=== PATIENT | female | born 1960 | race Caucasian/White ===

== ENCOUNTER 2019-03-26 07:08 | Outpatient (CLI) | payer OTHER, SELFPAY ==
[2019-03-26 09:16] LABS: Calculated LDL 77 mg/dL; Cholesterol 155 mg/dL (50-200); HDL Cholesterol 40 mg/dL (40-60); Triglyceride 192 mg/dL (30-150)
== END 2019-03-26 07:28 ==
PROVIDERS: PCP Family Medicine; Visit Provider Family Medicine
DX: E78.5 Hyperlipidemia, unspecified (principal)
CPT/HCPCS: 36415; 80061; 83721

== ENCOUNTER 2019-07-26 14:06 | Outpatient (CLI) | payer OTHER, SELFPAY ==
--- NOTE | 2019-07-26 12:03 | DI.RAD_ITS ---
EXAM: XR FOREARM RT INDICATION: rt wrist pain, hand pain, elbow pain, forearm pain, neurpathic finger pain, s/p trauma M25.531, M79.641, M79.2, M25.521, M79.631, S49.90XA COMPARISON: No exams were available for comparison TECHNIQUE: 2D digital imaging was performed. FINDINGS: No acute fracture or dislocation is present. The soft tissues are unremarkable. IMPRESSION: No acute abnormality.
--- NOTE | 2019-07-26 12:04 | DI.RAD_ITS ---
EXAM: XR ELBOW RT COMPLETE INDICATION: r/o fracture--s/p trauma 07/23; cannot lift w/ RUE. COMPARISON: No exams were available for comparison TECHNIQUE: 2D digital imaging was performed. FINDINGS: No acute fracture or dislocation is present. The soft tissues are unremarkable. IMPRESSION: No acute abnormality.
--- NOTE | 2019-07-26 12:06 | DI.RAD_ITS ---
EXAM: XR WRIST RT COMPLETE INDICATION: ulnar side painful with palpation, r/o fracture. COMPARISON: No exams were available for comparison TECHNIQUE: 2D digital imaging was performed. FINDINGS: There is no acute fracture or dislocation. The soft tissues are unremarkable. IMPRESSION: No acute abnormality.
--- NOTE | 2019-07-26 12:08 | DI.RAD_ITS ---
EXAM: XR HAND RT COMPLETE INDICATION: numb,suspect neuropathic pain 4th 5th, r/o fracture COMPARISON: RIGHT LITTLE FINGER POST REDUC from 04/18/2017 TECHNIQUE: 2D digital imaging was performed. FINDINGS: No acute fracture or dislocation is identified. The soft tissues are unremarkable. There are mild d egenerative changes seen in the hand. IMPRESSION: No acute fracture or dislocation.
== END 2019-07-26 14:26 ==
PROVIDERS: PCP Family Medicine; Visit Provider Nurse Practitioner Adult Health
DX: M25.531 Pain in right wrist (principal); M25.521 Pain in right elbow; M79.631 Pain in right forearm; M79.641 Pain in right hand; M79.644 Pain in right finger(s); M79.2 Neuralgia and neuritis, unspecified; M19.041 Primary osteoarthritis, right hand
CPT/HCPCS: 73080; 73090; 73110; 73130

== ENCOUNTER 2019-09-10 13:40 | Outpatient (CLI) | payer OTHER, SELFPAY ==
[2019-09-10 14:09] LABS: Abs Immature Grans 0.01 k/cumm (0.0-0.09); Absolute Basophil Count 0.02 k/cumm (0.0-0.2); Absolute Eosinophil Count 0.25 k/cumm (0.0-0.7); Absolute Lymphocyte Count 2.73 k/cumm (1.2-3.4); Absolute Monocyte Count 0.92 k/cumm (0.11-0.7); Absolute Neutrophil Count 3.16 k/cumm (1.2-6.7); Basophils % 0.3; Eosinophils % 3.5; HCT 41.5 % (36.0-46.0); HGB 13.3 g/dL (12.0-15.5); Immature Grans % 0.1; Lymphocytes % 38.5; Mean Corpuscular Hemoglobin 30.2 pg (27.0-33.0); Mean Corpuscular Volume 94.3 fL (80-95); Mean Platelet Volume 10.2 fL (8.0-11.0); Neutrophils % 44.6; Platelet Count 259 x1000/uL (130-400); RBC Distribution Width 13.5 % (11.7-14.6); White Blood Cell Count 7.09 k/cumm (4.4-10.8)
[2019-09-10 14:45] LABS: ESR 21 mm/hr (0-30)
[2019-09-10 15:29] LABS: Albumin 3.2 g/dL (3.4-5.0); Bilirubin, Direct 0.07 mg/dL (0.00-0.20); Bilirubin, Total 0.3 mg/dL (0.2-1.0); C-Reactive Protein 1.38 mg/dL (0.0-0.3); Estimated GFR 56.95 (mL/min/1.73m2); Total Protein 7.7 g/dL (6.4-8.2)
[2019-09-10 16:20] LABS: ALT 16 U/L (14-59); AST 19 U/L (15-37); Alkaline Phosphatase 104 U/L (46-116)
== END 2019-09-10 14:00 ==
PROVIDERS: PCP Family Medicine; Visit Provider Internal Medicine
DX: M19.90 Unspecified osteoarthritis, unspecified site (principal); M25.60 Stiffness of unspecified joint, not elsewhere classified; M45.9 Ankylosing spondylitis of unspecified sites in spine; Z79.899 Other long term (current) drug therapy
CPT/HCPCS: 36415; 80076; 85652; 82565; 85025; 86140

== ENCOUNTER 2019-11-16 09:16 | Outpatient (REF) | payer OTHER, SELFPAY ==
[2019-11-17 23:11] LABS: Calprotectin 320 mcg/g
== END 2019-11-16 09:36 ==
LOC: LBN 09:16
PROVIDERS: PCP Family Medicine; Visit Provider Nurse Practitioner Adult Health
DX: K51.00 Ulcerative (chronic) pancolitis without complications (principal)
CPT/HCPCS: 83993

== ENCOUNTER 2020-04-03 10:27 | Outpatient (REF) | payer OTHER, SELFPAY ==
[2020-04-05 20:39] LABS: Calprotectin 719 mcg/g
== END 2020-04-03 10:47 ==
LOC: LBN 10:27
PROVIDERS: PCP Family Medicine; Visit Provider Nurse Practitioner Adult Health
DX: K51.00 Ulcerative (chronic) pancolitis without complications (principal)
CPT/HCPCS: 83993

== ENCOUNTER 2020-04-04 03:21 | Outpatient (CLI) | payer OTHER, SELFPAY ==
[2020-04-04 10:56] LABS: Abs Immature Grans 0.01 k/cumm (0.0-0.09); Absolute Basophil Count 0.03 k/cumm (0.0-0.2); Absolute Eosinophil Count 0.26 k/cumm (0.0-0.7); Absolute Lymphocyte Count 2.59 k/cumm (1.2-3.4); Absolute Monocyte Count 0.75 k/cumm (0.11-0.7); Absolute Neutrophil Count 3.48 k/cumm (1.2-6.7); Basophils % 0.4; Eosinophils % 3.7; Immature Grans % 0.1 %; Lymphocytes % 36.4; Mean Corp. HGB Concentration 31.7 g/dL (32.0-36.0); Mean Corpuscular Volume 94.7 fL (80-95); Monocytes % 10.5; Neutrophils % 48.9; Platelet Count 265 x1000/uL (130-400); RBC 4.33 m/cumm (4.00-5.20); RBC Distribution Width 14.3 % (11.7-14.6); White Blood Cell Count 7.12 k/cumm (4.4-10.8)
[2020-04-04 11:26] LABS: Prothrombin Time 10.4 sec (9.3-11.0)
[2020-04-04 11:39] LABS: ALT 17 U/L (14-59); AST 13 U/L (15-37); Albumin 3.3 g/dL (3.4-5.0); Alkaline Phosphatase 95 U/L (46-116); Anion Gap 8.5 mmol/L (3-11); BUN 18 mg/dL (7-18); Bilirubin, Total 0.3 mg/dL (0.2-1.0); C-Reactive Protein 1.81 mg/dL (0.0-0.3); CO2 29.5 mmol/L (21.0-32.0); CREATININE 0.99 mg/dL (0.55-1.02); Calcium 9.6 mg/dL (8.5-10.1); Chloride 106 mmol/L (98-107); Estimated GFR 57.61 (mL/min/1.73m2); Glucose 168 mg/dL (74-106); Sodium 144 mmol/L (136-145); Total Protein 7.8 g/dL (6.4-8.2)
[2020-04-04 13:57] LABS: ESR 24 mm/hr (0-30)
[2020-04-05 21:45] LABS: Adalimumab QN with Reflex Ab 12.7 mcg/mL
== END 2020-04-04 03:41 ==
PROVIDERS: Family Provider Internal Medicine; PCP Family Medicine; Visit Provider Internal Medicine Gastroenterology
DX: K51.00 Ulcerative (chronic) pancolitis without complications (principal); K75.81 Nonalcoholic steatohepatitis (NASH); M19.90 Unspecified osteoarthritis, unspecified site; M25.60 Stiffness of unspecified joint, not elsewhere classified; M45.9 Ankylosing spondylitis of unspecified sites in spine; Z79.899 Other long term (current) drug therapy
CPT/HCPCS: 36415; 80053; 80076; 83520; 85652; 85025; 85610; 86140

== ENCOUNTER 2020-04-24 01:54 | Outpatient (CLI) | payer OTHER, SELFPAY ==
--- NOTE | 2020-04-24 08:31 | DI.MAMMO_ITS ---
EXAM: MG MAMMO SCREENING CLINICAL HISTORY: screening,Z12.39 TECHNIQUE: Bilateral full field digital CC and MLO mammographic images were obtained with 3D tomosyn thesis and utilizing computer aided detection (CAD). COMPARISON: Available for comparison. FINDINGS: Masses/Architectural Distortion: None seen. Microcalcifications: No suspicious pleomorphic-type are seen. Skin Thickening/Nipple Retraction: None. IMPRESSION: 1. No significant interval change with no specific features of malignancy noted. 2. Unless there is more urgent need, screening mammography is recommended, as per [employer] guidelines. BI-RADS Category 1 - Negative Breast Density - Category B - Scattered areas of fibroglandular density A negative radiographic report should not delay biopsy if a dominant or clinically suspicious mass is present. Up to ten percent of cancers are not identified on mammography. A negative report may reinforce clinical impression. Adenosis and dense breasts may obscure an underlying neoplasm. False positive reports average 6 to 10%. Patient will receive a letter notifying them of these results.
== END 2020-04-24 02:14 ==
PROVIDERS: PCP Family Medicine; Visit Provider Family Medicine
DX: Z12.31 Encounter for screening mammogram for malignant neoplasm of breast (principal); R92.2 Inconclusive mammogram
CPT/HCPCS: 77063; 77067

== ENCOUNTER 2020-05-03 02:50 | Outpatient (CLI) | payer OTHER, SELFPAY ==
[2020-05-03 08:43] LABS: Abs Immature Grans 0.02 10^3/uL (0.0-0.06); Absolute Basophil Count 0.04 10^3/uL (0.0-0.2); Absolute Eosinophil Count 0.28 10^3/uL (0.0-0.7); Absolute Lymphocyte Count 2.34 10^3/uL (1.2-3.4); Absolute Monocyte Count 0.66 10^3/uL (0.1-0.8); Absolute Neutrophil Count 2.98 10^3/uL (1.2-6.7); Basophils % 0.6; Eosinophils % 4.4; HCT 42.2 % (36.0-46.0); HGB 13.4 g/dL (11.2-15.7); Immature Grans % 0.3; MCH 30.3 pg (27.0-33.0); MCHC 31.8 % (32.0-36.0); MCV 95.5 fL (80-95); MPV 10.2 fL (8.0-11.0); Monocytes % 10.4; Neutrophils % 47.3; Nucleated RBC 0 %; Platelet Count 237 10^3/uL (130-400); RBC 4.42 10^6/uL (3.93-5.22); RDW 13.5 % (11.7-14.6); RDW-SD 47.4 fL; WBC 6.32 10^3/uL (4.4-10.8)
[2020-05-03 09:16] LABS: Hemoglobin A1C 5.4 % (3.8-5.6)
[2020-05-03 09:24] LABS: COMMENT (LAB VIEW ONLY) 297.96 mg/dL; Microalb ug/mg Crea 7.3 ug/mg Cr
[2020-05-03 09:49] LABS: ALT 16 U/L (14-59); AST 15 U/L (15-37); Albumin 3.5 g/dL (3.4-5.0); Alkaline Phosphatase 98 U/L (46-116); Anion Gap 9.1 mmol/L (3-11); BUN 17 mg/dL (7-18); Bilirubin, Total 0.3 mg/dL (0.2-1.0); CO2 26.9 mmol/L (21.0-32.0); CREATININE 0.99 mg/dL (0.55-1.02); Calcium 9.6 mg/dL (8.5-10.1); Calculated LDL 80 mg/dL (<100); Chloride 106 mmol/L (98-107); Cholesterol 176 mg/dL (<200); Estimated GFR 57.41 (mL/min/1.73m2); Glucose 147 mg/dL (74-106); HDL Cholesterol 44 mg/dL (40-60); Potassium 3.8 mmol/L (3.5-5.1); Sodium 142 mmol/L (136-145); TSH 1.18 uIU/mL (0.36-3.74); Triglyceride 261 mg/dL (<150)
[2020-05-04 04:46] LABS: Vitamin D 25 Total 22.6 ng/ml (30-100)
[2020-05-04 10:33] LABS: Parathyroid Hormone,Intact 56 pg/mL (19-88)
== END 2020-05-03 03:10 ==
PROVIDERS: PCP Family Medicine; Visit Provider Internal Medicine Endocrinology, Diabetes & Metabolism
DX: K51.00 Ulcerative (chronic) pancolitis without complications (principal); M85.80 Other specified disorders of bone density and structure, unspecified site; E11.9 Type 2 diabetes mellitus without complications; E78.2 Mixed hyperlipidemia; M45.0 Ankylosing spondylitis of multiple sites in spine
CPT/HCPCS: 36415; 80053; 80061; 82306; 82043; 82570; 83036; 83970; 84443; 85025; 86140

== ENCOUNTER 2021-02-02 03:11 | Outpatient (CLI) | payer OTHER, SELFPAY ==
[2021-02-02 15:12] LABS: Abs Immature Grans 0.07 10^3/uL (0.0-0.06); Absolute Basophil Count 0.02 10^3/uL (0.0-0.2); Absolute Lymphocyte Count 2.09 10^3/uL (1.2-3.4); Absolute Neutrophil Count 5.35 10^3/uL (1.2-6.7); Basophils % 0.3; HCT 40.5 % (36.0-46.0); HGB 13.1 g/dL (11.2-15.7); Immature Grans % 0.9; Lymphocytes % 26.7; MCHC 32.3 % (32.0-36.0); MCV 89.6 fL (80-95); MPV 9.7 fL (8.0-11.0); Monocytes % 3.8; Neutrophils % 68.3; Nucleated RBC 0 %; Platelet Count 336 10^3/uL (130-400); RBC 4.52 10^6/uL (3.93-5.22); RDW 13.6 % (11.7-14.6); RDW-SD 44.3 fL; WBC 7.83 10^3/uL (4.4-10.8)
[2021-02-02 15:45] LABS: ALT 22 U/L (14-59); AST 16 U/L (15-37); Albumin 3.2 g/dL (3.4-5.0); Alkaline Phosphatase 96 U/L (46-116); Anion Gap 8.5 mmol/L (3-11); BUN 29 mg/dL (7-18); Bilirubin, Direct 0.1 mg/dL (0.0-0.2); Bilirubin, Total 0.3 mg/dL (0.2-1.0); C-Reactive Protein 1.74 mg/dL (0.0-0.3); CO2 28.5 mmol/L (21.0-32.0); CREATININE 1.2 mg/dL (0.55-1.02); Calcium 9.6 mg/dL (8.5-10.1); Chloride 109 mmol/L (98-107); Estimated GFR 45.98 (mL/min/1.73m2); Glucose 175 mg/dL (74-106); Potassium 4.5 mmol/L (3.5-5.1); Sodium 146 mmol/L (136-145)
[2021-02-07 14:04] LABS: TB Interpretation Negative (Negative); TB1 Ag minus Nil 0.02 IU/ml; TB2 Ag minus Nil 0.09 IU/mL
== END 2021-02-02 03:12 | disposition home or self-care (01) ==
PROVIDERS: PCP Family Medicine; Visit Provider Internal Medicine Gastroenterology
DX: K51.00 Ulcerative (chronic) pancolitis without complications (principal)
CPT/HCPCS: 36415; 80048; 80076; 85025; 86140; 86480

== ENCOUNTER 2021-03-27 03:50 | Outpatient (CLI) | payer OTHER, SELFPAY ==
[2021-03-27 08:34] LABS: Anion Gap 9.6 mmol/L (3-11); BUN 22 mg/dL (7-18); CO2 26.4 mmol/L (21.0-32.0); CREATININE 1.2 mg/dL (0.55-1.02); Calcium 9.4 mg/dL (8.5-10.1); Chloride 108 mmol/L (98-107); Estimated GFR 45.98 (mL/min/1.73m2); Glucose 140 mg/dL (74-106); Potassium 3.8 mmol/L (3.5-5.1); Sodium 144 mmol/L (136-145)
== END 2021-03-27 03:51 | disposition home or self-care (01) ==
LOC: LBO 03:50
PROVIDERS: PCP Family Medicine; Visit Provider Family Medicine
DX: K76.0 Fatty (change of) liver, not elsewhere classified (principal)
CPT/HCPCS: 36415; 80048

== ENCOUNTER 2021-04-02 15:21 | Outpatient (REF) | payer OTHER, SELFPAY | END 2021-04-02 15:22 | disposition home or self-care (01) | LOC: LBN 15:21 | PROVIDERS: PCP Family Medicine; Visit Provider Family Medicine | DX: N39.0 Urinary tract infection, site not specified (principal) | CPT/HCPCS: 87077; 87086; 87186 ==

== ENCOUNTER 2021-04-04 03:02 | Outpatient (CLI) | payer OTHER, SELFPAY ==
[2021-04-04 14:25] LABS: Abs Immature Grans 0.03 10^3/uL (0.0-0.06); Absolute Basophil Count 0.05 10^3/uL (0.0-0.2); Absolute Lymphocyte Count 3.14 10^3/uL (1.2-3.4); Absolute Monocyte Count 0.97 10^3/uL (0.1-0.8); Absolute Neutrophil Count 5.16 10^3/uL (1.2-6.7); Basophils % 0.5; Eosinophils % 4.1; HGB 13.1 g/dL (11.2-15.7); Immature Grans % 0.3; Lymphocytes % 32.2; MCH 28.8 pg (27.0-33.0); MCV 90.1 fL (80-95); MPV 10.6 fL (8.0-11.0); Monocytes % 9.9; Nucleated RBC 0 %; Platelet Count 242 10^3/uL (130-400); RBC 4.55 10^6/uL (3.93-5.22); RDW 13.5 % (11.7-14.6); RDW-SD 44.2 fL; WBC 9.75 10^3/uL (4.4-10.8)
[2021-04-04 15:48] LABS: ALT 23 U/L (14-59); AST 19 U/L (15-37); Albumin 3.4 g/dL (3.4-5.0); Alkaline Phosphatase 106 U/L (46-116); Anion Gap 8.2 mmol/L (3-11); BUN 26 mg/dL (7-18); Bilirubin, Direct 0.1 mg/dL (0.0-0.2); Bilirubin, Total 0.3 mg/dL (0.2-1.0); C-Reactive Protein 1.52 mg/dL (0.0-0.3); CO2 25.8 mmol/L (21.0-32.0); CREATININE 1.1 mg/dL (0.55-1.02); Calcium 9.5 mg/dL (8.5-10.1); Chloride 107 mmol/L (98-107); Estimated GFR 50.84 (mL/min/1.73m2); Glucose 99 mg/dL (74-106); Sodium 141 mmol/L (136-145); Total Protein 7.7 g/dL (6.4-8.2)
[2021-04-05 09:53] LABS: HIV-1/2 Ag & Ab Screen Negative (Negative)
[2021-04-06 13:37] LABS: TB Interpretation Negative (Negative); TB1 Ag minus Nil 0.02 IU/ml; TB2 Ag minus Nil 0.06 IU/mL
== END 2021-04-04 03:03 | disposition home or self-care (01) ==
LOC: LBO 03:02
PROVIDERS: PCP Family Medicine; Visit Provider Internal Medicine Gastroenterology
DX: K51.00 Ulcerative (chronic) pancolitis without complications (principal); Z11.4 Encounter for screening for human immunodeficiency virus [HIV]
CPT/HCPCS: 36415; 80048; 80076; 87389; 85025; 86140; 86480

== ENCOUNTER 2021-04-18 03:34 | Outpatient (CLI) | payer OTHER, SELFPAY ==
[2021-04-18 14:13] LABS: Abs Immature Grans 0.02 10^3/uL (0.0-0.06); Absolute Basophil Count 0.05 10^3/uL (0.0-0.2); Absolute Eosinophil Count 0.45 10^3/uL (0.0-0.7); Absolute Lymphocyte Count 3.88 10^3/uL (1.2-3.4); Absolute Monocyte Count 0.97 10^3/uL (0.1-0.8); Basophils % 0.6; Eosinophils % 5.3; HCT 44.5 % (36.0-46.0); HGB 14.1 g/dL (11.2-15.7); Immature Grans % 0.2; Lymphocytes % 45.8; MCH 28.7 pg (27.0-33.0); MCHC 31.7 % (32.0-36.0); MCV 90.4 fL (80-95); MPV 9.9 fL (8.0-11.0); Monocytes % 11.5; Neutrophils % 36.6; Nucleated RBC 0 %; Platelet Count 242 10^3/uL (130-400); RBC 4.92 10^6/uL (3.93-5.22); RDW 13.4 % (11.7-14.6); RDW-SD 44.7 fL; WBC 8.47 10^3/uL (4.4-10.8)
[2021-04-18 15:39] LABS: ALT 24 U/L (14-59); AST 17 U/L (15-37); Albumin 3.4 g/dL (3.4-5.0); Alkaline Phosphatase 113 U/L (46-116); Bilirubin, Total 0.3 mg/dL (0.2-1.0); C-Reactive Protein 0.77 mg/dL (0.0-0.3); Total Protein 7.8 g/dL (6.4-8.2)
[2021-04-18 15:48] LABS: Bilirubin, Direct < 0.1 mg/dL (0.0-0.2)
== END 2021-04-18 03:35 | disposition home or self-care (01) ==
LOC: LBO 03:34
PROVIDERS: PCP Family Medicine; Visit Provider Internal Medicine Gastroenterology
DX: K51.00 Ulcerative (chronic) pancolitis without complications (principal)
CPT/HCPCS: 36415; 80076; 85025; 86140

== ENCOUNTER 2021-05-16 02:58 | Outpatient (CLI) | payer OTHER, SELFPAY ==
[2021-05-16 14:07] LABS: Basophils % 0.9; HCT 41.6 % (36.0-46.0); HGB 13.4 g/dL (11.2-15.7); Lymphocytes % 40.7; MCH 28.3 pg (27.0-33.0); MCHC 32.2 % (32.0-36.0); MCV 87.9 fL (80-95); Monocytes % 9.2; Neutrophils % 43.9; Platelet Count 237 10^3/uL (130-400); RBC 4.73 10^6/uL (3.93-5.22); RDW 13.3 % (11.7-14.6); RDW-SD 43.4 fL; WBC 7.93 10^3/uL (4.4-10.8)
[2021-05-16 14:08] LABS: Abs Immature Grans 0.02 10^3/uL (0.0-0.06); Absolute Basophil Count 0.07 10^3/uL (0.0-0.2); Absolute Lymphocyte Count 3.23 10^3/uL (1.2-3.4); Absolute Monocyte Count 0.73 10^3/uL (0.1-0.8); Absolute Neutrophil Count 3.48 10^3/uL (1.2-6.7); Immature Grans % 0.3; Nucleated RBC 0 %
[2021-05-16 15:40] LABS: ALT 30 U/L (14-59); AST 21 U/L (15-37); Albumin 3.4 g/dL (3.4-5.0); Alkaline Phosphatase 107 U/L (46-116); Bilirubin, Direct 0.1 mg/dL (0.0-0.2); Bilirubin, Total 0.3 mg/dL (0.2-1.0); C-Reactive Protein 1.61 mg/dL (0.0-0.3); Total Protein 7.8 g/dL (6.4-8.2)
[2021-05-24 14:51] LABS: Ustekinumab Ab <10 AU/mL (<10); Ustekinumab QN 4.2 mcg/mL
== END 2021-05-16 02:59 | disposition home or self-care (01) ==
LOC: LBO 02:58
PROVIDERS: PCP Family Medicine; Visit Provider Internal Medicine Gastroenterology
DX: K51.00 Ulcerative (chronic) pancolitis without complications (principal); Z51.81 Encounter for therapeutic drug level monitoring
CPT/HCPCS: 36415; 80076; 80299; 83520; 85025; 86140

== ENCOUNTER 2021-07-09 02:32 | Outpatient (CLI) | payer OTHER, SELFPAY ==
[2021-07-09 14:04] LABS: Abs Immature Grans 0.03 10^3/uL (0.0-0.06); Absolute Basophil Count 0.04 10^3/uL (0.0-0.2); Absolute Eosinophil Count 0.22 10^3/uL (0.0-0.7); Absolute Lymphocyte Count 2.75 10^3/uL (1.2-3.4); Absolute Monocyte Count 0.69 10^3/uL (0.1-0.8); Absolute Neutrophil Count 4.67 10^3/uL (1.2-6.7); Basophils % 0.5; Eosinophils % 2.6; HCT 39.8 % (36.0-46.0); HGB 12.3 g/dL (11.2-15.7); Immature Grans % 0.4; Lymphocytes % 32.7; MCH 27.6 pg (27.0-33.0); MCHC 30.9 % (32.0-36.0); MCV 89.4 fL (80-95); MPV 9.3 fL (8.0-11.0); Monocytes % 8.2; Neutrophils % 55.6; Nucleated RBC 0 %; Platelet Count 289 10^3/uL (130-400); RBC 4.45 10^6/uL (3.93-5.22); RDW 13.4 % (11.7-14.6)
[2021-07-09 16:35] LABS: ALT 19 U/L (14-59); AST 14 U/L (15-37); Albumin 3.5 g/dL (3.4-5.0); Alkaline Phosphatase 106 U/L (46-116); Bilirubin, Direct 0.1 mg/dL (0.0-0.2); Bilirubin, Total 0.3 mg/dL (0.2-1.0); Total Protein 8.2 g/dL (6.4-8.2)
== END 2021-07-09 02:33 | disposition home or self-care (01) ==
LOC: LBO 02:33
PROVIDERS: PCP Family Medicine; Visit Provider Internal Medicine Gastroenterology
DX: K51.00 Ulcerative (chronic) pancolitis without complications (principal)
CPT/HCPCS: 36415; 80076; 85025; 86140

== ENCOUNTER 2021-08-02 02:15 | Outpatient (CLI) | payer OTHER, SELFPAY ==
[2021-08-02 15:34] LABS: Abs Immature Grans 0.02 10^3/uL (0.0-0.06); Absolute Basophil Count 0.02 10^3/uL (0.0-0.2); Absolute Eosinophil Count 0.26 10^3/uL (0.0-0.7); Absolute Lymphocyte Count 2.15 10^3/uL (1.2-3.4); Absolute Monocyte Count 0.57 10^3/uL (0.1-0.8); Absolute Neutrophil Count 3.75 10^3/uL (1.2-6.7); Basophils % 0.3; Eosinophils % 3.8; HCT 38.5 % (36.0-46.0); HGB 12.1 g/dL (11.2-15.7); Immature Grans % 0.3; Lymphocytes % 31.8; MCH 28.2 pg (27.0-33.0); MCHC 31.4 % (32.0-36.0); MCV 89.7 fL (80-95); MPV 9.9 fL (8.0-11.0); Monocytes % 8.4; Neutrophils % 55.4; Nucleated RBC 0 %; Platelet Count 329 10^3/uL (130-400); RBC 4.29 10^6/uL (3.93-5.22); RDW-SD 45.5 fL; WBC 6.77 10^3/uL (4.4-10.8)
[2021-08-02 17:05] LABS: ALT 21 U/L (14-59); AST 20 U/L (15-37); Albumin 3.4 g/dL (3.4-5.0); Alkaline Phosphatase 112 U/L (46-116); Bilirubin, Direct 0.1 mg/dL (0.0-0.2); Bilirubin, Total 0.3 mg/dL (0.2-1.0); CREATININE 0.9 mg/dL (0.55-1.02); Total Protein 8.2 g/dL (6.4-8.2)
[2021-08-03 10:53] LABS: Hep B Core Antibody Negative (Negative)
[2021-08-03 17:03] LABS: G6PD Enzyme Activity 9.6 U/g Hb (8.0 - 11.9)
== END 2021-08-02 02:16 | disposition home or self-care (01) ==
LOC: LBO 02:15
PROVIDERS: PCP Family Medicine; Visit Provider Internal Medicine
DX: K51.90 Ulcerative colitis, unspecified, without complications (principal); Z79.899 Other long term (current) drug therapy; M19.90 Unspecified osteoarthritis, unspecified site; M25.60 Stiffness of unspecified joint, not elsewhere classified
CPT/HCPCS: 36415; 80076; 82657; 82955; 86704; 82565; 85025

== ENCOUNTER 2021-08-15 02:40 | Outpatient (CLI) | payer OTHER, SELFPAY ==
[2021-08-15 10:56] LABS: Abs Immature Grans 0.03 10^3/uL (0.0-0.06); Absolute Basophil Count 0.05 10^3/uL (0.0-0.2); Absolute Eosinophil Count 0.19 10^3/uL (0.0-0.7); Absolute Lymphocyte Count 2.56 10^3/uL (1.2-3.4); Absolute Monocyte Count 0.66 10^3/uL (0.1-0.8); Absolute Neutrophil Count 4.56 10^3/uL (1.2-6.7); Basophils % 0.6; Eosinophils % 2.4; Immature Grans % 0.4; Lymphocytes % 31.8; MCH 27.6 pg (27.0-33.0); MCHC 30.8 % (32.0-36.0); MCV 89.9 fL (80-95); MPV 9.5 fL (8.0-11.0); Monocytes % 8.2; Neutrophils % 56.6; Nucleated RBC 0 %; Platelet Count 325 10^3/uL (130-400); RBC 4.34 10^6/uL (3.93-5.22); RDW 14.5 % (11.7-14.6); RDW-SD 47.2 fL; WBC 8.05 10^3/uL (4.4-10.8)
[2021-08-15 13:33] LABS: ALT 27 U/L (14-59); AST 23 U/L (15-37); Albumin 3.4 g/dL (3.4-5.0); Alkaline Phosphatase 118 U/L (46-116); Bilirubin, Direct 0.1 mg/dL (0.0-0.2); Bilirubin, Total 0.3 mg/dL (0.2-1.0); C-Reactive Protein 5.19 mg/dL (0.0-0.3); Total Protein 8.2 g/dL (6.4-8.2)
== END 2021-08-15 02:41 | disposition home or self-care (01) ==
PROVIDERS: PCP Family Medicine; Visit Provider Internal Medicine Gastroenterology
DX: K51.00 Ulcerative (chronic) pancolitis without complications (principal)
CPT/HCPCS: 36415; 80076; 85025; 86140

== ENCOUNTER 2021-09-24 08:38 | Outpatient (CLI) | payer OTHER, SELFPAY ==
[2021-09-24 12:42] VITALS: BP 133/76; PULSE 72; RESP 20; TEMP 37.1; O2SAT 100
[2021-09-24 13:05] VITALS: BP 150/70; PULSE 73; RESP 18; TEMP 35.6; O2SAT 95
[2021-09-24 13:30] VITALS: BP 109/69; RESP 18; TEMP 37.7; O2SAT 98
[2021-09-24 13:45] VITALS: BP 118/71; PULSE 66; RESP 20; TEMP 38; O2SAT 100
[2021-09-24 14:40] VITALS: BP 117/74; PULSE 63; RESP 20; TEMP 37.7; O2SAT 20
== END 2021-09-24 08:39 | disposition home or self-care (01) ==
PROVIDERS: PCP Family Medicine; Visit Provider Family Medicine
DX: U07.1 COVID-19 (principal); R07.89 Other chest pain; R00.0 Tachycardia, unspecified; R05.9 Cough, unspecified; R53.81 Other malaise
CPT/HCPCS: 96365; Q0047

== ENCOUNTER 2021-10-17 03:19 | Outpatient (CLI) | payer OTHER, SELFPAY ==
[2021-10-17 15:27] LABS: Abs Immature Grans 0.02 10^3/uL (0.0-0.06); Absolute Basophil Count 0.02 10^3/uL (0.0-0.2); Absolute Eosinophil Count 0.13 10^3/uL (0.0-0.7); Absolute Lymphocyte Count 2.09 10^3/uL (1.2-3.4); Absolute Monocyte Count 0.58 10^3/uL (0.1-0.8); Absolute Neutrophil Count 5.92 10^3/uL (1.2-6.7); Basophils % 0.2; Eosinophils % 1.5; HGB 11.6 g/dL (11.2-15.7); Immature Grans % 0.2; Lymphocytes % 23.9; MCHC 30.5 % (32.0-36.0); MCV 91.8 fL (80-95); MPV 9.3 fL (8.0-11.0); Monocytes % 6.6; Neutrophils % 67.6; Nucleated RBC 0 %; Platelet Count 313 10^3/uL (130-400); RBC 4.14 10^6/uL (3.93-5.22); RDW 15.1 % (11.7-14.6); RDW-SD 50.7 fL; WBC 8.76 10^3/uL (4.4-10.8)
[2021-10-17 15:29] LABS: ESR 56 mm/hr (0-30)
[2021-10-17 16:07] LABS: ALT 21 U/L (14-59); AST 20 U/L (15-37); Albumin 3.4 g/dL (3.4-5.0); Alkaline Phosphatase 107 U/L (46-116); Bilirubin, Direct 0.1 mg/dL (0.0-0.2); Bilirubin, Total 0.3 mg/dL (0.2-1.0); C-Reactive Protein 3.47 mg/dL (0.0-0.3); CREATININE 1.1 mg/dL (0.55-1.02); Estimated GFR 50.67 (mL/min/1.73m2); Total Protein 8.7 g/dL (6.4-8.2)
== END 2021-10-17 03:20 | disposition home or self-care (01) ==
LOC: LBO 03:19
PROVIDERS: PCP Family Medicine; Visit Provider Internal Medicine
DX: K51.90 Ulcerative colitis, unspecified, without complications (principal); M19.90 Unspecified osteoarthritis, unspecified site; Z79.899 Other long term (current) drug therapy
CPT/HCPCS: 36415; 80076; 85652; 82565; 85025; 86140

== ENCOUNTER 2021-10-23 15:56 | Outpatient (REF) | payer OTHER, SELFPAY ==
[2021-10-26 21:04] LABS: Calprotectin 1426 mcg/g
== END 2021-10-23 15:57 | disposition home or self-care (01) ==
LOC: LBN 15:56
PROVIDERS: PCP Family Medicine; Visit Provider Internal Medicine Gastroenterology
DX: K51.019 Ulcerative (chronic) pancolitis with unspecified complications (principal)
CPT/HCPCS: 83993

== ENCOUNTER 2021-12-20 10:06 | Emergency (ER) | payer OTHER, SELFPAY ==
[2021-12-20] VITALS (48 sets, daily range): BP systolic 100–154; BP diastolic 58–114; PULSE 55–75; RESP 14–39; TEMP 36.6; O2SAT 97–100
--- NOTE | 2021-12-20 10:00 | RT.EKG_ITS ---
APPROVED REPORT Exam: Resting ECG Reason for Exam: syncope Patient Location: E HR:55 bpm ECG Measurements Heart Rate [address] 158 P 25 QRSd 97 QRS -14 QT 440 T 6 QTc 423 Conclusion Sinus bradycardia...rate< 60. Sinus. No STEMI. I have reviewed and interpreted ECG and agree with software generated interpretation.
--- NOTE | 2021-12-20 10:00 | DI.RAD_ITS ---
Exam(s) XR PORTABLE CHEST AP EXAM: XR PORTABLE CHEST AP CLINICAL HISTORY: syncope TECHNIQUE: 2D digital imaging was performed of the chest. One image was obtained. An AP view was ob tained. COMPARISON: CR CHEST 2 VIEWS PA,LAT from 10/17/2016 FINDINGS: MEDIASTINUM: Normal. HEART: Normal. PULMONARY VASCULATURE: Normal. LUNGS: Clear. PLEURAL SPACE: No pleural effusion or pneumothorax. BONE:Within normal limits for the patient's age. OTHER FINDINGS:Normal. IMPRESSION: No acute pulmonary findings. DATA REPOSITORY: RADIATION DOSE DELIVERED:
--- NOTE | 2021-12-20 10:15 | RT.EKG_ITS ---
APPROVED REPORT Exam: Resting ECG Reason for Exam: chest pain Patient Location: E HR:64 bpm ECG Measurements Heart Rate 64 AXIS [place] 140 P -39 QRSd 98 QRS -9 QT 417 T 3 QTc 432 Conclusion Sinus rhythm...normal P axis, V-rate 60- 99. Sinus. No STEMI. I have reviewed and interpreted ECG and agree with software generated interpretation.
[2021-12-20 10:19] LABS: Abs Immature Grans 0.01 10^3/uL (0.0-0.06); Absolute Basophil Count 0.04 10^3/uL (0.0-0.2); Absolute Eosinophil Count 0.09 10^3/uL (0.0-0.7); Absolute Lymphocyte Count 2.63 10^3/uL (1.2-3.4); Absolute Monocyte Count 0.72 10^3/uL (0.1-0.8); Absolute Neutrophil Count 4.83 10^3/uL (1.2-6.7); Basophils % 0.5; Eosinophils % 1.1; HCT 42.2 % (36.0-46.0); Immature Grans % 0.1; Lymphocytes % 31.6; MCHC 30.8 % (32.0-36.0); MCV 90.9 fL (80-95); MPV 9.7 fL (8.0-11.0); Monocytes % 8.7; Nucleated RBC 0 %; Platelet Count 320 10^3/uL (130-400); RBC 4.64 10^6/uL (3.93-5.22); RDW 14.1 % (11.7-14.6); RDW-SD 47.6 fL; WBC 8.32 10^3/uL (4.4-10.8)
--- NOTE | 2021-12-20 10:30 | DI.CT_ITS ---
Exam(s) CT HEAD WO EXAM: CT HEAD WO CLINICAL HISTORY: dizziness, syncope. TECHNIQUE: Imaging Protocol: Axial computed tomography images with coronal and sagittal reformatted images were created and reviewed COMPARISON: CT HEAD WITHOUT CONTRAST from 07/08/2016 FINDINGS: Ventricles and Extra axial spaces: Normal in size and morphology for the patient's age. Hemorrhage: None. Cerebral parenchyma: Normal. Midline shift: None. Brainstem/Cerebellum: Normal. Calvarium: Normal. Visualized Paranasal sinuses/Mastoids: Clear. Soft Tissues: Unremarkable. IMPRESSION: No acute intracranial process. RADIATION DOSE DELIVERED: 679.73mGy.cm Total DLP DATA REPOSITORY: All CT scans at this facility are submitted to the National Radiology Data Registry (NRDR) Dose Index Registry (DIR) with the [employer] (A[employer]). RADIATION OPTIMIZATION: All CT scans at this facility use at least one of these dose optimization te chniques: automated exposure control; mA and/or kV adjustment per patient size (includes targeted exa ms where dose is matched to clinical indication); or iterative reconstruction.
[2021-12-20 10:35] LABS: ALT 27 U/L (14-59); AST 23 U/L (15-37); Albumin 3.7 g/dL (3.4-5.0); Alkaline Phosphatase 148 U/L (46-116); Anion Gap 7.7 mmol/L (3-11); BUN 26 mg/dL (7-18); Bilirubin, Total 0.3 mg/dL (0.2-1.0); CO2 28.3 mmol/L (21.0-32.0); CREATININE 1.1 mg/dL (0.55-1.02); Calcium 9.8 mg/dL (8.5-10.1); Chloride 104 mmol/L (98-107); Estimated GFR 50.67 (mL/min/1.73m2); Glucose 114 mg/dL (74-106); Potassium 3.8 mmol/L (3.5-5.1); Sodium 140 mmol/L (136-145); Total Protein 9.1 g/dL (6.4-8.2)
[2021-12-20 10:39] LABS: Magnesium 2.1 mg/dL (1.8-2.4); Troponin I < 50 ng/L (<or=60)
--- NOTE | 2021-12-20 10:43 | W.ED.GENAD ---
Discharge Plan Disposition Patient Disposition: HOME Condition: Stable Discharge Details Clinical Impression: Syncope Primary Care Provider: Marcio Devlin ED Provider: Marci Stubbs Home Meds and New Rx's Prescriptions: Continued Stelara 90 mg/mL syringe 90 mg subcut Q8W 0RF azathioprine 50 mg tablet 50 mg PO DAILY 0RF ferrous sulfate 325 MG tablet 325 mg PO DAILY 0RF multivitamin [Daily Vitamin] 1 EACH tablet 1 ea PO DAILY 0RF calcium carbonate-vitamin D3 [Calcium 500 With D] 1 EACH tablet 2 ea PO DAILY 0RF ascorbic acid (vitamin C) 1,000 MG tablet 1,000 mg PO DAILY 0RF magnesium 250 MG tablet 250 mg PO DAILY 0RF loratadine 10 MG tablet 10 mg PO DAILY PRNQty: 30 1RF Rx Instructions: as needed for allergies cholecalciferol (vitamin D3) [Vitamin D3] 125 mcg (5,000 unit) tablet 5,000 unit PO DAILY 0RF Label Comments: [facility] [place] endo 06/11/20 RH sumatriptan 20 mg/actuation spray,non-aerosol 20 mg NS ONCE Qty: 6 3RF losartan 50 mg tablet 50 mg PO DAILY Qty: 90 3RF folic acid 1 mg tablet 1 mg PO DAILY Qty: 90 3RF metformin 500 mg tablet 500 mg PO BID Qty: 180 3RF Rx Instructions: twice daily for abnormal blood sugars; R73.09 metoprolol succinate 100 mg tablet extended release 24 hr 100 mg PO DAILY Qty: 90 3RF Rx Instructions: to control blood pressure under 140/80 simvastatin 10 mg tablet 10 mg PO DAILY Qty: 90 3RF topiramate 50 mg tablet 50 mg PO BID Qty: 180 3RF omeprazole 40 mg capsule,delayed release(DR/EC) 40 mg PO DAILY Qty: 30 11RF triamcinolone acetonide 0.1 % cream 1 applic topical BID 0RF Rx Instructions: 07/23/[address] X [address] Adam then use prn hydrochlorothiazide 12.5 mg tablet 12.5 mg PO DAILY Qty: 90 3RF Rx Instructions: to control BP under 140/80 Flovent HFA 220 mcg/actuation HFA aerosol inhaler 1 puff inhalation BID Qty: 12 6RF albuterol sulfate [Proventil HFA] 90 mcg/actuation HFA aerosol inhaler 1 puff IH Q6H PRN (Reason: shortness of breath or wheezing) Qty: 18 3RF aspirin 81 mg tablet,delayed release (DR/EC) See Rx Instructions .ROUTE .COMPLEX Qty: 90 3RF Dose Instruction: TAKE ONE TABLET BY MOUTH EVERY DAY Rx Instructions: TAKE ONE TABLET BY MOUTH EVERY DAY Discharge Instructions Additional Instructions: Do not drive for the remainder of the day Regular meals and fluids Recheck with your primary care physician early next week We have initiated a Holter monitor to evaluate your heart rhythm Should you have recurrent events of syncope, you should return for reassessment Please use caution when going from sitting to standing Referrals: Marcio Devlin DO [Primary Care Provider] - Discharge Data Discharge Date/Time-TO BE ENTERED AT DEPARTURE: 12/20/21 14:27 Medical Decision Making Patient has negative orthostatics, she is fully alert, oriented, of decisional capacity with a nonfocal neurological exam She is ambulatory with steady gait and is asymptomatic at this time Mild her age and presentation are concerning, I used [place] syncope rule in and patient is very low risk for further more ominous cause of syncope including cardiogenic syncope which he did consider, she was observed on telemetry for approximately 3 hours and there was no evidence of dysrhythmia noted Her EKG is reassuring she has 2 - troponin evaluations She did have an elevated D-dimer therefore CT PE was ordered but does not show evidence of pulmonary embolism CT head was ordered given head injury and syncope and this was also negative Chest x-ray does not show evidence of acute abnormality Holter monitor was initiated I did consult with patient's PCP and he will follow up in the outpatient setting She is placed on follow-up list with care management Return precautions discussed and patient expressed understanding Her TSH was slightly low, however her free T4 was within normal limits She is given very low threshold to return should she have recurrent episodes or any new or worsening complaints She is discharged home in care of her who will monitor her for the rest of the evening with a Holter monitor in place Medical Records Medical records reviewed: Yes I reviewed the patient's medical records. Lab Data Lab results reviewed: Yes I reviewed the patient's lab results. HPI General Date/Time Provider Initiated Documentation: 12/20/21 10:10. HPI Narrative: This very pleasant 61-year-old female with history of ulcerative colitis, metabolic syndrome, venous insufficiency, hypomagnesemia, hypertension, ankylosing spondylitis presents with report of syncope approximately 30 minutes prior to arrival. 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 She was told that the episode lasted approximately 30 seconds. She states he has been having some intermittent lightheadedness and dizziness for the past month. She has mentioned this to her doctor who reportedly has been evaluating her for this. She denies any change in medications. She denies any chest pain or shortness of breath associated. She denies any headache, fever, chills, vision change. There is no reported seizure activity and no reported injuries from the event. She did hit her head but denies headache. She denies any strength or sensation change. She denies any speech change. She denies any prior history of syncope in the past. Related Data Home Medications Medication Instructions Recorded Confirmed ferrous sulfate 325 mg (65 mg 325 mg PO DAILY 12/16/12 12/20/21 iron) tablet ascorbic acid (vitamin C) 1,000 mg 1,000 mg PO DAILY 12/24/12 12/20/21 tablet calcium carbonate 500 mg-vitamin 2 ea PO DAILY 12/24/12 12/20/21 D3 10 mcg (400 unit) tablet (Calcium 500 With D) multivitamin (Daily Vitamin) 1 ea PO DAILY 12/24/12 12/20/21 magnesium 250 mg tablet 250 mg PO DAILY 12/25/12 12/20/21 loratadine 10 mg tablet 10 mg PO DAILY PRN #30 tab-cap 04/05/16 12/20/21 cholecalciferol (vitamin D3) 125 5,000 unit PO DAILY tab 06/13/20 12/20/21 mcg (5,000 unit) tablet (Vitamin D3) sumatriptan 20 mg/actuation nasal 20 mg NS ONCE #6 ea 11/27/20 12/20/21 spray losartan 50 mg tablet 50 mg PO DAILY #90 tab-cap 01/15/21 12/20/21 folic acid 1 mg tablet 1 mg PO DAILY #90 tab-cap 03/16/21 12/20/21 metformin 500 mg tablet 500 mg PO BID #180 tab-cap 03/16/21 12/20/21 metoprolol succinate 100 mg 100 mg PO DAILY #90 tab-cap 03/16/21 12/20/21 tablet,extended release 24 hr simvastatin 10 mg tablet 10 mg PO DAILY #90 tab-cap 07/02/21 04/07/22 topiramate 50 mg tablet 50 mg PO BID #180 tab 03/16/21 12/20/21 ustekinumab 90 mg/mL subcutaneous 90 mg SUBCUT Q8W ml 04/02/21 12/20/21 syringe (Stelara) omeprazole 40 mg capsule,delayed 40 mg PO DAILY #30 cap 06/18/21 12/20/21 release triamcinolone acetonide 0.1 % 1 applic TOPICAL BID 07/24/21 12/20/21 topical cream hydrochlorothiazide 12.5 mg tablet 12.5 mg PO DAILY #90 tab-cap 07/30/21 12/20/21 fluticasone propionate 220 1 puff INHALATION BID #12 g 09/10/21 12/20/21 mcg/actuation HFA aerosol inhaler (Flovent HFA) albuterol sulfate 90 mcg/actuation 1 puff IH Q6H PRN #18 gm 09/21/21 12/20/21 aerosol inhaler (Proventil HFA) azathioprine 50 mg tablet 50 mg PO DAILY 10/01/21 12/20/21 aspirin 81 mg tablet,delayed See Rx Instructions .ROUTE 12/10/21 12/20/21 release .COMPLEX #90 tablet Previous Rx's Medication Instructions Recorded sumatriptan 20 mg/actuation nasal 20 mg NS ONCE #6 ea 11/27/20 spray losartan 50 mg tablet 50 mg PO DAILY #90 tab-cap 01/15/21 folic acid 1 mg tablet 1 mg PO DAILY #90 tab-cap 03/16/21 metformin 500 mg tablet 500 mg PO BID #180 tab-cap 03/16/21 metoprolol succinate 100 mg 100 mg PO DAILY #90 tab-cap 03/16/21 tablet,extended release 24 hr simvastatin 10 mg tablet 10 mg PO DAILY #90 tab-cap 03/16/21 topiramate 50 mg tablet 50 mg PO BID #180 tab 03/16/21 omeprazole 40 mg capsule,delayed 40 mg PO DAILY #30 cap 06/18/21 release hydrochlorothiazide 12.5 mg tablet 12.5 mg PO DAILY #90 tab-cap 07/30/21 fluticasone propionate 220 1 puff INHALATION BID #12 g 09/10/21 mcg/actuation HFA aerosol inhaler (Flovent HFA) albuterol sulfate 90 mcg/actuation 1 puff IH Q6H PRN #18 gm 09/21/21 aerosol inhaler (Proventil HFA) aspirin 81 mg tablet,delayed See Rx Instructions .ROUTE 12/10/21 release .COMPLEX #90 tablet Allergies Allergy/AdvReac Type Severity Reaction Status Date / Time celecoxib [From Celebrex] Allergy Intermediate rash Verified 12/20/21 10:29 etodolac Allergy Intermediate itching Verified 12/20/21 10:29 amoxicillin trihydrate AdvReac Intermediate vomits Verified 12/20/21 10:29 [From Augmentin] doxycycline AdvReac Intermediate VOMITS Verified 12/20/21 10:29 ibuprofen AdvReac Intermediate CHEST PAIN Verified 12/20/21 10:29 potassium clavulanate AdvReac Intermediate vomits Verified 12/20/21 10:29 [From Augmentin] cephalexin AdvReac Mild VOMITS Verified 12/20/21 10:29 General Stated Complaint: Dizzy/Sync NIKOLAS: 2 Review of Systems All systems reviewed & are unremarkable except as noted in HPI and below PFSH All Active Problems (Updated 12/20/21 @ 13:27 by YURIY Bob) Syncope (Chronic) Inflammatory arthropathy (Acute) 12/13/21 [facility] [place] Rheumatology note Morning joint stiffness (Acute) 12/13/21 [facility] [place] Rheumatology note Chronic midline low back pain without sciatica (Acute) 12/13/21 [facility] [place] Rheumatology note Pain in left hip (Acute) 12/03/21 [facility] [place] Rheumatology note Neck pain (Acute) 12/13/21 [facility] [place] Rheumatology note Trochanteric bursitis, left hip (Acute ~09/2021) Dr Mercado,[facility] [place] Ortho Diabetes mellitus (Chronic) SARS-CoV-2 positive (Acute) 09/21/20-pt reports she had a positive result from a pcr done at [facility]. given pulse oximeter Papular eczema (Acute) Folliculitis (Acute) Ulcerative pancolitis without complication (Chronic ~1993) Prediabetes (Chronic) Seborrheic keratoses (Acute) Presence of left artificial hip joint (Chronic) Primary osteoarthritis of right hip (Chronic) Otitis externa (Acute 07/18/14) Urethral caruncle (Acute 08/15/17) Ulcerative enterocolitis (Acute 09/15/93) onset L sided, pancolitis last colon 2010 [facility] [place]; Humira began 04/2009, stopped due to abnl LFT, then restarted 07/2014 RADHA (stress urinary incontinence, female) (Acute 08/15/17) Peripheral venous insufficiency (Acute 08/17/10) Paresthesia (Acute 05/25/13) R lat knee for ~1 yr, ? 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) LACTOSE INTOLERANT Hypomagnesemia (Acute 11/23/09) Hyperlipidemia (Acute 04/15/04) simvastatin begun 2009 by GI [facility] [place] Gastroesophageal reflux disease without esophagitis (Acute 10/26/03) Essential hypertension (Acute 11/13/01) goal <140/80 Disorder of bone and articular cartilage (Acute 07/15/96) OSTEOPENIA Closed displaced fracture of proximal phalanx of right little finger with routine healing (Acute 06/04/17) Chronic rhinitis (Acute 09/15/00) BMI 34.0-34.9,adult (Acute 08/07/15) Asthma (Acute 06/15/05) [employer] Ankylosing spondylitis (Acute 09/15/90) Adalimumab (Humira) long-term use (Acute 09/15/09) HUMIRA adalimumab for colitis and ankylosing spondylitis, Dr Eden Reynoso; Dr Marc Chan (GI) Abnormal blood sugar (Acute 08/07/15) early DM A1c 6.5 08/07/15 Medical History (Updated 12/20/21 @ 13:27 by YURIY Bob) Dizziness (06/10/08) Surgical History (Updated 05/16/21 @ 07:35 by Linda Talavera RN) Colonoscopy w/ Bx (03/04/17) [facility] [place] H/O colonoscopy 12/19/20 colonoscopy per [facility] [place] note from 12/19/20 Vaginal hysterectomy (03/10/18) Family History (Updated 04/02/21 @ 13:30 by Sarah Eaton LPN) Mother Heart disease Hypertension Hepatitis C Father Alcohol abuse Lung cancer Heart disease Sister Heart disease Social History (Updated 04/02/21 @ 13:31 by Sarah Eaton LPN) Smoking/Tobacco Use Status: Never Smoking risk assessment performed?: Yes Alcohol Intake: current Alcohol Intake frequency: holidays/special occasions only Alcohol type: wine Drug use: Never Substance use type: does not use Adopted: No Caregiver/Support person: No Household members: spouse Housing: house Number of Children: 1 Communication Needs: Corrective Lenses Education Level: high school current occupation: [employer] Pets and animals: No Sexually active: Yes Do you think of yourself as: straight/heterosexual Current gender identity: female What is your relationship status?: How often do you talk on the phone with friends or family?: three or more times per week How often do you get together with friends or relatives?: three or more times per week How often do you attend alevism or latter day services?: decline to answer Do you belong to any clubs or organized social groups?: no Panel score (0-1 are the most socially isolated patients): 2 What type of physical activity do you participate in: walking and bicycling Duration: 15-30 minutes/day Frequency: 3-4 times per week Bia/Zoroastrian: [employer] Special bia needs: No Seatbelt use: always Drive intox or ride w/intox substitute bus driver: No Working smoke detector in home: Yes Carbon monox detector in home: Yes Do you feel safe at home: Yes Do you feel safe in your relationship?: Yes Exam Const General: cooperative, comfortable and no acute distress HENMT Head: normal to inspection Mouth: oral mucosae normal Other: no oral trauma noted Eyes Pupils: PERRL EOM: EOM intact bilaterally Neck Other: no midline tenderness, no carotid bruit Chest Chest: normal inspection of the chest Resp Effort & Inspection: normal respiratory effort Auscultation: clear to auscultation bilaterally Cardio Rate: regular rate Rhythm: regular rhythm Heart Sounds: no murmurs GI Inspection: normal to inspection Other: no abdominal bruit or pulsatile mass Back/Spine/Pelvis Back: no CVA tenderness Other: no thoracic or lumbar tenderness Skin General skin exam: no rashes or lesions noted Neuro General: patient alert and patient oriented x3 Cranial Nerves: CN's II-XI intact bilaterally and tongue midline Cognition: normal cognition Speech: speech normal Gait: normal gait Motor: strength 5/5 throughout Sensory Exam: no sensory deficits noted Coordination: [id number] test normal Extrem General: normal to inspection Course Vital Signs Vital signs: Vital Signs Temperature 36.6 C 12/20/21 10:03 Pulse 66 12/20/21 10:03 Respiratory Rate 20 12/20/21 10:03 Blood Pressure 154/77 H 12/20/21 10:03 Pulse Oximetry 99 12/20/21 10:03 Temperature 36.6 C 12/20/21 10:03 Pulse 63 12/20/21 10:37 Pulse 69 12/20/21 10:30 Respiratory Rate 18 12/20/21 10:30 Respiratory Effort Non-Labored 12/20/21 10:12 Respiratory Depth Normal 12/20/21 10:12 Respiratory Pattern Normal 12/20/21 10:12 Blood Pressure 132/68 12/20/21 10:37 Blood Pressure Mean 93 12/20/21 10:31 Pulse Oximetry 98 12/20/21 10:30 Oxygen Delivery Method Room Air 12/20/21 10:03 Oxygen Flow Rate 0 12/20/21 10:03 Pain Level 4 12/20/21 10:03 Comment 12/20/21 10:03 Lab/Test Results Lab/Test Results: Laboratory Tests Range/Units 12/20/21 12/20/21 12/20/21 10:10 10:10 10:10 WBC (4.4-10.8) 10^3/uL 8.32 RBC (3.93-5.22) 10^6/uL 4.64 Hgb (11.2-15.7) g/dL 13.0 Hct (36.0-46.0) % 42.2 MCV (80-95) fL 90.9 MCH (27.0-33.0) pg 28.0 MCHC (32.0-36.0) % 30.8 L RDW (11.7-14.6) % 14.1 Plt Count (130-400) 10^3/uL 320 MPV (8.0-11.0) fL 9.7 Immature Gran % 0.1 Neutrophils % 58.0 Lymphocytes % 31.6 Monocytes % 8.7 Eosinophils % 1.1 Basophils % 0.5 Nucleated RBC % % 0 Absolute Neutrophils (1.2-6.7) 10^3/uL 4.83 Absolute Lymphocytes (1.2-3.4) 10^3/uL 2.63 Absolute Monocytes (0.1-0.8) 10^3/uL 0.72 Absolute Eosinophils (0.0-0.7) 10^3/uL 0.09 Absolute Basophils (0.0-0.2) 10^3/uL 0.04 Sodium (136-145) mmol/L 140 Potassium (3.5-5.1) mmol/L 3.8 Chloride (98-107) mmol/L 104 Carbon Dioxide (21.0-32.0) mmol/L 28.3 Anion Gap (3-11) mmol/L 7.7 BUN (7-18) mg/dL 26 H Creatinine (0.55-1.02) mg/dL 1.1 H Estimated GFR/1.73 m2 (mL/min/1.73m2) 50.67 Glucose (74-106) mg/dL 114 H Calcium (8.5-10.1) mg/dL 9.8 Magnesium (1.8-2.4) mg/dL 2.1 Total Bilirubin (0.2-1.0) mg/dL 0.3 AST (15-37) U/L 23 ALT (14-59) U/L 27 Alkaline Phosphatase (46-116) U/L 148 H Troponin I (<or=60) ng/L < 50 Total Protein (6.4-8.2) g/dL 9.1 H Albumin (3.4-5.0) g/dL 3.7 PAWSS Have you Been Recently Intoxicated or Drunk Within the Last 30 days?: No Have you Ever Experienced Previous Episodes of Alcohol Withdrawal?: No Have you ever Experienced Withdrawal Seizures?: No Have you ever Experienced Delirium Tremens(DT)s?: No Have you ever undergone Alcohol Rehabilitation Treatment (i.e, inpt ot outpatient treatment programs)?: No Have you ever Experienced Blackouts?: No Have you ever Combined Alcohol with other Downers within the last 90 days?: No Have you ever Combined Alcohol with any other Substance of Abuse during the last 90 days?: No Positive Blood Alcohol level on Presentation? [PCS.BAL]: No Evidence of Increased Autonomic Activity (i.e. HR>120, tremor, sweating, agitation, nausea)?: No Result: 0
[2021-12-20 10:44] LABS: NT-proBNP 273 pg/mL (<300)
[2021-12-20 11:14] LABS: Bilirubin Negative (Negative); Blood Trace-intact (Negative); Clarity Clear (Clear); Glucose Negative (Negative); Ketones Negative (Negative); Leukocyte Esterase Small (Negative); Nitrite Negative (Negative); Specific Gravity >= 1.030 (1.005-1.025); Urobilinogen 0.2 EU/dL (Up TO 0.2)
[2021-12-20 11:17] LABS: TSH (W/Ref FT4) 0.27 uIU/mL (0.36-3.74)
[2021-12-20 11:26] LABS: Bacteria Rare HPF (Negative); Crystals Negative HPF (Negative); Epithelial Cells Few HPF (Negative); Mucus Moderate (Negative); RBC 0-2 HPF (0-2)
[2021-12-20 11:27] LABS: C & S Indicated? Yes; Casts 0-2 Hyaline LPF (Negative)
[2021-12-20 11:36] LABS: FREE T4 0.79 ng/dL (0.76-1.46)
[2021-12-20 11:36] LABS: D-Dimer 1731 ng/mlFEU (<500)
--- NOTE | 2021-12-20 12:32 | DI.CT_ITS ---
Exam(s) CT CHEST PE CTA EXAM: CT CHEST PE CTA CLINICAL HISTORY: elevated ddimer syncope. TECHNIQUE: Imaging Protocol: Axial CT angiography was performed with multi-slice acquisition and mu lti-planar and/or 3D reconstructions. CONTRAST MATERIAL: Intravenous: Omnipaque 350 Contrast volume:80 mL COMPARISON: CT ABD PELVIS WITH CONTRAST from 09/23/2008 FINDINGS: Tracheobronchial tree: Patent where visualized. Pulmonary parenchyma: No consolidation or dominant measurable mass. No architectural distortion. Pulmonary Arteries: No evidence of filling defect to suggest pulmonary emboli. Mediastinum and [place]: No dominant adenopathy or fluid collection. The esophagus is unremarkable. Visualized thyroid gland: Unremarkable. Pleura: No effusion or pneumothorax. Heart: The heart is not dilated. Mild coronary artery calcification. No pericardial effusion. Aorta: Thoracic aorta non-dilated. No evidence of dissection. Upper abdomen: There is a 1.7 cm simple right parapelvic cysts. No follow-up is recommended there i s a nonobstructing 3 mm stone in the superior pole of the right kidney. Soft tissues: Unremarkable. Bones: Within normal limits for the patient's age. IMPRESSION: 1. No evidence of pulmonary embolism, thoracic aortic dissection or aneurysm. 2. Results of this exam have been verbally communicated with provider. RADIATION DOSE DELIVERED: 391.95mGy.cm Total DLP DATA REPOSITORY: All CT scans at this facility are submitted to the National Radiology Data Registry (NRDR) Dose Index Registry (DIR) with the [employer] (ACR). RADIATION OPTIMIZATION: All CT scans at this facility use at least one of these dose optimization te chniques: automated exposure control; mA and/or kV adjustment per patient size (includes targeted exa ms where dose is matched to clinical indication); or iterative reconstruction.
[2021-12-20] MEDS: Omnipaque 350 MG/ML 100 ML BTL 80 ML IJ (12:49)
--- NOTE | 2021-12-20 13:00 | HOLTER_ITS ---
APPROVED REPORT Conclusion This is a 48-hour Holter monitor ordered for syncope Predominant rhythm was sinus. Average heart rate was 64. Minimum was 51, maximum 84 There were no ventricular dysrhythmias There were very rare isolated atrial premature beats. There was one atrial run 5 beats in duration There was no atrial fibrillation, no high-grade AV block, no pauses greater than 3 seconds Multiple patient symptoms were reported all of which corresponded to sinus rhythm
[2021-12-20 13:55] LABS: Troponin I < 50 ng/L (<or=60)
== END 2021-12-20 14:27 | disposition home or self-care (01) ==
PROVIDERS: Emergency Provider Physician Assistant; PCP Family Medicine
DX: R55 Syncope and collapse (principal); R42 Dizziness and giddiness; R79.1 Abnormal coagulation profile; R07.9 Chest pain, unspecified
CPT/HCPCS: 36415; 71275; 80053; 93005; 99285; 70450; 71045; 81003; 81015; 83735; 83880; 84439; 84443; 84484; 85025; 85379; 87086; 93010; 93225; 99284; J3490

== ENCOUNTER 2021-12-20 11:13 | Outpatient (RCR) | payer OTHER, SELFPAY | END 2022-01-12 23:59 | disposition home or self-care (01) | LOC: RT 11:13 | PROVIDERS: PCP Family Medicine; Visit Provider Physician Assistant | DX: R55 Syncope and collapse (principal); I49.1 Atrial premature depolarization | CPT/HCPCS: 93226 ==

== ENCOUNTER → 2022-02-26 01:48 | Outpatient (CLI) | payer OTHER, SELFPAY ==
--- NOTE | 2022-02-26 08:09 | DI.US_ITS ---
APPROVED REPORT EXAM: Comprehensive 2D, Doppler, and color-flow Echocardiogram Patient Location: Out-Patient Certified Master Safecracker: Caitlyn Santana RDCS (AE) Indications: Unexplained syncope Other Information Study Quality: Adequate Conclusion Normal left ventricular wall thickness and chamber size. Estimated ejection fraction is 60%. Wall m otion is normal Normal right ventricular size and systolic function Both atria are normal in size Aortic valve is mildly sclerotic and trileaflet without stenosis or regurgitation Normal mitral valve with mild regurgitation Normal tricuspid valve with trace to mild regurgitation. Estimated right ventricular systolic pressu re is normal at 24 mmHg Mildly dilated ascending aorta measuring 3.52 cm Wall motion Left Ventricle The left ventricle is normal size. The left ventricular systolic function is normal. The left ventric ular ejection fraction is within the normal range. There is normal left ventricular wall thickness. T here is normal LV segmental wall motion. There is no ventricular septal defect visualized. LVEF is 60 %. Right Ventricle The right ventricle is normal size. The right ventricular systolic function is normal. The RVSP is 24 .1 mmHg. Atria The left atrium size is normal. The right atrium size is normal. The interatrial septum is intact wit h no evidence for an atrial septal defect. Aortic Valve The aortic valve is mildly sclerotic Aortic valve is trileaflet. There is no aortic valvular stenosis . No aortic regurgitation is present. Mitral Valve The mitral valve is normal in structure. No evidence of mitral valve stenosis. Mild mitral regurgitat ion. Tricuspid Valve The tricuspid valve is normal in structure. There is no tricuspid valve stenosis. Trace to mild tricu spid regurgitation. Pulmonic Valve The pulmonary valve is normal in structure. There is no pulmonic valvular stenosis. Trace pulmonic re gurgitation. Great Vessels The aortic root is normal in size. The ascending aorta is mildly dilated. Aortic arch is normal in ca liber. IVC is normal in size and collapses >50% with inspiration. Pericardium There is no pericardial effusion. 2D Dimensions IVSD d PLAX 0.84 cm F: 0.6-1.0 LV Vol A2C d MOD 86.6 mL LVPW d PLAX 0.85 cm F: 0.6 - 1.0 LV Vol A4C d MOD 93.7 mL LVID d PLAX 4.40 cm F: 3.8 - 5.2 LA vol/ BSA A2C s A-L 37.3 mL/m2 LVDs 2.95 cm F: 2.2 - 3.5 LA vol/ BSA A4C s A-L 30.5 mL/m2 Ao Root d 2.85 cm F: 2.7 - 3.3 LA Vol/ BSA Biplane s A-L 33.9 mL/m2 RA Area A4C 10.07 cm2 LA Area A4C s MOD 18.69 cm2 RA Vol/ BSA A4C s A-L 10.7 mL/m2 LA Area A2C s MOD 20.78 cm2 Ao Asc Diam d 3.52 cm F: 2.3 - 3.1 LV EF A4C MOD 60.5 % LV EF Teichholz 60.8 % LV EF A2C MOD 60.6 % LVEF (Elliott's) 60.34 % F: 54 - 74 LV EF Biplane MOD 60.3 % LV Volume 69.55 mL F: 46 - 106 SV 54.44 mL LV Volume Index 37.79 mL/m2 F: 29 - 61 SV Index 29.49 mL/m2 LV Vol Biplane MOD 90.2 mL FS 32.35 % M-Mode TAPSE 2.29 cm (M/F) >1.7 LV Diastology MV E' medial 0.072 (>0.07 m/s) E/A Ratio 0.7 LV E/e MED 8.10 (<14) MV E Vmax 0.59 (0.4-1.3 m/s) MV E' lateral 0.117 (>0.1 m/s) MV A Vmax 0.80 (0.4-1.3 m/s) LV E/e LAT 4.95 (<14) MV E/A Ratio 0.71 MV E/E' medial 8.14 MV E/E' lateral 5.00 Aortic Valve LVOT Area 2.93 cm2 AoV Area Vmax 2.12 cm2 LVOT Vmax 1.04 m/s AoV Area/ BSA (Vmax) 1.15 cm2/m2 LVOT Mean Soham. 0.64 m/s KAILA Mean Soham. 1.82 cm2 LVOT Peak Grad 4.4 mmHg KAILA Mean Soham. Index 0.98 cm2/m2 LVOT Mean Grad 1.9 mmHg LVOT VTI 0.249 m LVOT Diam s 1.90 cm AoV Vmax 1.45 m/s Velocity Ratio 0.71 AoV Mean Soham. 1.03 m/s AoV Peak Grad 8.4 mmHg LVOT SV 73.14 mL AoV Mean Grad 4.7 mmHg AoV VTI 0.326 m AoV Area VTI 2.25 cm2 AoV Area/ BSA (VTI) 1.22 cm/m2 Mitral Valve MV DT 365 (160-240 msec) MV PHT 106 msec MV Area PHT 2.08 cm2 MV VTI 0.203 m MV Area VTI 3.61 (4.0-6.0 cm2) Pulmonary Valve PV Vmax 0.90 (0.5-1.5 m/s) RVOT Peak Gr. 2.07 mmHg PV Peak Grad 3.3 mmHg RVOT Mean Gr. 1.10 mmHg PV Mean Grad 2.1 mmHg RVOT VTI 0.159 m PV VTI 0.221 m RVOT Vmax 0.72 m/s Tricuspid Valve TR Peak Grad 21.1 mmHg TR Vmax 2.30 m/s RA Pressure 3.00 mmHg RVSP (TR) 24.1 mmHg
== END ==
PROVIDERS: PCP Family Medicine; Visit Provider Family Medicine
DX: R55 Syncope and collapse (principal)
CPT/HCPCS: 93306

== ENCOUNTER → 2022-04-26 00:07 | Outpatient (CLI) | payer OTHER, SELFPAY ==
--- NOTE | 2022-04-26 07:00 | DI.MAMMO_ITS ---
Exam(s) MAMMO SCREENING EXAM: MAMMO SCREENING CLINICAL HISTORY: screening,Z12.39 TECHNIQUE: Mammograms were interpreted according to the usual protocol including computer analysis w [employer] CAD system, tomosynthesis and C-view imaging. COMPARISON: 2012 through 2019 FINDINGS: The breasts are composed of scattered fibroglandular densities, Breast Density category B. No suspicious masses or suspicious microcalcifications are seen. No skin thickening or abnormal axillary lymph nodes are seen. There has been no significant change from prior exams. IMPRESSION: BI-RADS Category 1, Negative mammogram Yearly screening mammography is recommended. Breast Density - Category B, scattered fibroglandular densities. A negative radiographic report should not delay biopsy if a dominant or clinically suspicious mass is present. Up to ten percent of cancers are not identified on mammography. A negative report may reinforce clinical impression. Adenosis and dense breasts may obscure an underlying neoplasm. False positive reports average 6 to 10%. Patient will receive a letter notifying them of these results.
== END ==
PROVIDERS: PCP Family Medicine; Visit Provider Family Medicine
DX: Z12.31 Encounter for screening mammogram for malignant neoplasm of breast (principal)
CPT/HCPCS: 77063; 77067

== ENCOUNTER 2022-08-12 03:07 | Outpatient (CLI) | payer OTHER, SELFPAY ==
[2022-08-12 15:18] LABS: ESR 15 mm/hr (0-30)
[2022-08-12 15:19] LABS: Abs Immature Grans 0.03 10^3/uL (0.0-0.06); Absolute Basophil Count 0.04 10^3/uL (0.0-0.2); Absolute Eosinophil Count 0.27 10^3/uL (0.0-0.7); Absolute Lymphocyte Count 2.51 10^3/uL (1.2-3.4); Absolute Monocyte Count 0.75 10^3/uL (0.1-0.8); Absolute Neutrophil Count 5.91 10^3/uL (1.2-6.7); Basophils % 0.4; Eosinophils % 2.8; HCT 40.3 % (36.0-46.0); Immature Grans % 0.3; Lymphocytes % 26.4; MCH 29.5 pg (27.0-33.0); MCHC 32.3 % (32.0-36.0); MCV 91 fL (80-95); MPV 9.7 fL (8.0-11.0); Monocytes % 7.9; Neutrophils % 62.2; Platelet Count 280 10^3/uL (130-400); RBC 4.41 10^6/uL (3.93-5.22); RDW 13.5 % (11.7-14.6); RDW-SD 45.4 fL; WBC 9.51 10^3/uL (4.4-10.8)
[2022-08-12 16:07] LABS: ALT 25 U/L (14-59); AST 21 U/L (15-37); Albumin 3.6 g/dL (3.4-5.0); Alkaline Phosphatase 124 U/L (46-116); Bilirubin, Direct 0.1 mg/dL (0.0-0.2); Bilirubin, Total 0.3 mg/dL (0.2-1.0); C-Reactive Protein 1.61 mg/dL (0.0-0.3); CREATININE 1.1 mg/dL (0.55-1.02); Estimated GFR 57.17 (mL/min/1.73m2); Total Protein 8.4 g/dL (6.4-8.2)
== END 2022-08-12 03:08 | disposition home or self-care (01) ==
PROVIDERS: PCP Family Medicine; Visit Provider Internal Medicine
DX: K51.90 Ulcerative colitis, unspecified, without complications (principal); M19.90 Unspecified osteoarthritis, unspecified site; Z79.899 Other long term (current) drug therapy; K51.018 Ulcerative (chronic) pancolitis with other complication
CPT/HCPCS: 36415; 80076; 85652; 82565; 85025; 86140

== ENCOUNTER 2022-11-10 02:24 | Emergency (ER) | payer OTHER, SELFPAY ==
[2022-11-10 02:39] VITALS: BP 157/66; PULSE 73; RESP 18; TEMP 36.7; O2SAT 98
--- NOTE | 2022-11-10 02:45 | DI.CT_ITS ---
Exam(s) CT RENAL COLIC WO EXAM: CT RENAL COLIC WO CLINICAL HISTORY: R flank pain, dysuria, r/o renal stone/pyelo. TECHNIQUE: Imaging Protocol: Axial computed tomography images with coronal and sagittal reformatted images were created and reviewed. COMPARISON: CT ABD PELVIS WITH CONTRAST from 09/23/[address] CHEST PE CTA from 12/20/2021 FINDINGS: ABDOMEN: Lung Bases: There is atelectasis or scarring in the left lung base. Liver: Normal density. No measurable mass. Gallbladder and biliary tract: No radiodense calculus or biliary ductal dilation. Pancreas: Normal density, no abnormal calcifications or inflammatory process. Spleen: Normal. Kidneys: Normal size, contour and axis.There is left nephrolithiasis without evidence of hydronephros is. There is a 5 3 mm stone in the lower right UVJ causing moderate hydronephrosis. No masses seen. Adrenal glands: No mass is seen. Lymph nodes: Within normal limits. Abdominal Aorta: Abdominal portion non-dilated. Atherosclerosis is present. PELVIS: Bladder:Symmetric distention, no gross wall thickening. Bowel: No obstruction or bowel wall thickening. There is no evidence of appendicitis. Peritoneal cavity: No ascites, collection or mesenteric inflammatory response. No free air. Reproductive organs: Status post hysterectomy. Bones: Within normal limits. Patient has a left total hip replacement. Soft Tissues: Within normal limits. IMPRESSION: 4 mm calculus at the right UVJ causing [id number] hydronephrosis. RADIATION DOSE DELIVERED: 997.68mGy.cm Total DLP DATA REPOSITORY: All CT scans at this facility are submitted to the National Radiology Data Registry (NRDR) Dose Index Registry (DIR) with the [employer] (ACR). RADIATION OPTIMIZATION: All CT scans at this facility use at least one of these dose optimization te chniques: automated exposure control; mA and/or kV adjustment per patient size (includes targeted exa ms where dose is matched to clinical indication); or iterative reconstruction.
[2022-11-10 03:00] LABS: Abs Immature Grans 0.02 10^3/uL (0.0-0.06); Absolute Basophil Count 0.05 10^3/uL (0.0-0.2); Absolute Lymphocyte Count 2.46 10^3/uL (1.2-3.4); Absolute Monocyte Count 0.65 10^3/uL (0.1-0.8); Absolute Neutrophil Count 5.73 10^3/uL (1.2-6.7); Basophils % 0.6; Eosinophils % 1.1; HCT 44.9 % (36.0-46.0); HGB 14.3 g/dL (11.2-15.7); Immature Grans % 0.2; Lymphocytes % 27.3; MCH 29.3 pg (27.0-33.0); MCHC 31.8 % (32.0-36.0); MCV 92 fL (80-95); MPV 10.1 fL (8.0-11.0); Monocytes % 7.2; Neutrophils % 63.6; Platelet Count 261 10^3/uL (130-400); RBC 4.88 10^6/uL (3.93-5.22); RDW 13.9 % (11.7-14.6); RDW-SD 47.3 fL; WBC 9.01 10^3/uL (4.4-10.8)
[2022-11-10 03:01] LABS: Bilirubin Negative (Negative); Blood Trace-lysed (Negative); Clarity Clear (Clear); Glucose Negative (Negative); Ketones Negative (Negative); Leukocyte Esterase Negative (Negative); Nitrite Negative (Negative); Specific Gravity 1.025 (1.005-1.025); Urobilinogen 0.2 mg/dL (Up to 0.2)
[2022-11-10 03:04] LABS: Bacteria Rare HPF (Negative); C & S Indicated? No; Casts Negative LPF (Negative); Crystals Negative HPF (Negative); Epithelial Cells Rare HPF (Negative); Mucus Negative (Negative); WBC Negative HPF (0-5)
[2022-11-10 03:19] LABS: ALT 45 U/L (14-59); AST 31 U/L (15-37); Alkaline Phosphatase 160 U/L (46-116); Anion Gap 9.9 mmol/L (3-11); BUN 26 mg/dL (7-18); Bilirubin, Total 0.3 mg/dL (0.2-1.0); CO2 27.1 mmol/L (21.0-32.0); CREATININE 1.1 mg/dL (0.55-1.02); Calcium 10.2 mg/dL (8.5-10.1); Chloride 106 mmol/L (98-107); Estimated GFR 57.17 (mL/min/1.73m2); Glucose 122 mg/dL (74-106); Lipase 24 U/L (16-77); Potassium 3.8 mmol/L (3.5-5.1); Sodium 143 mmol/L (136-145); Total Protein 9.3 g/dL (6.4-8.2)
[2022-11-10] MEDS: Ondansetron 4 MG/2 ML VIAL IVP (03:23)
[2022-11-10] MEDS: Normal Saline 1,000 ML 1000 ML IV (03:24)
[2022-11-10] MEDS: ACETAMINOPHEN 1,000 MG/100 ML BTL 400 MG IVPB (03:24)
--- NOTE | 2022-11-10 03:28 | ED.GENADUL_ITS ---
Discharge Plan Disposition Patient Disposition: Home Condition: Stable Discharge Details Clinical Impression: Ureterolithiasis Primary Care Provider: Marcio Devlin ED Provider: Karen Morgan Home Meds and New Rx's Prescriptions: New tamsulosin [Flomax] 0.4 mg capsule 0.4 mg PO DAILY Qty: 10 0RF Continued Stelara 90 mg/mL syringe 90 mg subcut Q8W Fish Oil 340-1,000 mg capsule 1 cap PO BID meclizine 25 mg tablet 25 mg PO BID PRN (Reason: dizziness) Qty: 30 0RF ferrous sulfate 325 MG tablet 325 mg PO DAILY multivitamin [Daily Vitamin] 1 EACH tablet 1 ea PO DAILY calcium carbonate-vitamin D3 [Calcium 500 With D] 1 EACH tablet 2 ea PO DAILY ascorbic acid (vitamin C) 1,000 MG tablet 1,000 mg PO DAILY magnesium 250 MG tablet 250 mg PO DAILY loratadine 10 MG tablet 10 mg PO DAILY PRNQty: 30 Rx Instructions: as needed for allergies cholecalciferol (vitamin D3) [Vitamin D3] 125 mcg (5,000 unit) tablet 5,000 unit PO DAILY Patient Comments: [facility] endo 06/11/20 RH triamcinolone acetonide 0.1 % cream 1 applic topical BID Rx Instructions: 07/23/21 X [address] Adam then use prn albuterol sulfate [Proventil HFA] 90 mcg/actuation HFA aerosol inhaler 1 puff IH Q6H PRN (Reason: shortness of breath or wheezing) Qty: 18 3RF aspirin 81 mg tablet,delayed release (/EC) See Rx Instructions .ROUTE .COMPLEX Qty: 90 3RF Dose Instruction: TAKE ONE TABLET BY MOUTH EVERY DAY Rx Instructions: TAKE ONE TABLET BY MOUTH EVERY DAY losartan 50 mg tablet 50 mg PO DAILY Qty: 90 3RF metoprolol succinate 50 mg tablet extended release 24 hr 50 mg PO DAILY Qty: 90 3RF folic acid 1 mg tablet See Rx Instructions .ROUTE .COMPLEX Qty: 90 3RF Dose Instruction: TAKE ONE TABLET BY MOUTH EVERY DAY Rx Instructions: TAKE ONE TABLET BY MOUTH EVERY DAY simvastatin 10 mg tablet See Rx Instructions .ROUTE .COMPLEX Qty: 90 3RF Dose Instruction: TAKE ONE TABLET BY MOUTH EVERY DAY Rx Instructions: TAKE ONE TABLET BY MOUTH EVERY DAY topiramate 50 mg tablet See Rx Instructions .ROUTE .COMPLEX Qty: 180 3RF Dose Instruction: TAKE ONE TABLET BY MOUTH TWICE A DAY Rx Instructions: TAKE ONE TABLET BY MOUTH TWICE A DAY sumatriptan 20 mg/actuation spray,non-aerosol 20 mg NS ONCE Qty: 6 3RF cyclobenzaprine 5 mg tablet 5 mg PO TID PRN Rx Instructions: per note dated 05/07/22 cc omeprazole 40 mg capsule,delayed release(DR/EC) 40 mg PO DAILY Qty: 30 11RF hydrochlorothiazide 12.5 mg tablet 12.5 mg PO DAILY Qty: 90 3RF Rx Instructions: to control BP under 140/80 metformin 500 mg tablet 500 mg PO BID Qty: 180 0RF Rx Instructions: twice daily for abnormal blood sugars; R73.09 fluticasone propionate [Flovent HFA] 220 mcg/actuation HFA aerosol inhaler 1 puff inhalation BID Qty: 12 6RF Discharge Instructions Instructions: Kidney Stones (ED), How to Strain Your Urine (ED) Additional Instructions: Your imaging today revealed that you have a kidney stone. Your blood tests today are reassuring and show no evidence of acute concerning findings. Drink plenty of fluids and get plenty of rest. Take Tylenol as needed and directed for pain or fever. Take the oxycodone for pain not relieved with Tylenol. A prescription for Flomax has been sent electronically to your pharmacy to take once daily. You have been placed on urology follow-up list for reevaluation. Return immediately to the emergency department if you develop any worsening or new concerning symptoms. Referrals: Franki Hancock MD [ [facility] STAFF PHYSICIAN] - Discharge Data Discharge Physician: Karen Morgan Medical Decision Making 0245 -- 62-year-old female with a history of obesity, hypertension, hyperlipidemia, GERD, asthma, migraines, peripheral vascular disease, prediabetes and ankylosing spondylitis presents for dysuria, urinary frequency and right flank pain since last night. Patient appears uncomfortable. Her blood pressure is moderately hypertensive. The remainder of vitals are within normal limits. Abdomen is soft and nontend er. She has no CVA tenderness. She is afebrile here and appears nontoxic. Differential diagnosis includes kidney stone, UTI, pyelonephritis. Will place an IV, bolus IV fluids, screening labs, urinalysis, CT renal colic. She states she cannot take ibuprofen due to chest pain. Denies any allergy symptoms with NSAIDs but will treat with IV Tylenol at this time. 0400 -- Labs and imaging reviewed. Normal white blood cell count. Creatinine 1.1. Lipase within normal limits. Urinalysis notes blood but no evidence of infection. CT notes 4.5 mm calculus right UVJ with mild right hydrouretero nephrosis. Patient reassessed and she feels better. She states she still has some pain but would like to go home. She was given a dose of Flomax and oxycodone. Disposition decision made weighing the risks and benefits of hospitalization versus outpatient treatment, the risk for further decompensation, and the patient's wishes. A prescription for Flomax sent electronically to her pharmacy. She was given a bottle of Zofran and oxycodone to go. She was placed on urology follow-up list. Usual and customary return precautions given prior to discharge. Medical Records Medical records reviewed: Yes I reviewed the patient's medical records. Imaging Data Radiologic Study: Radiologist's impression: CT Abdomen And Pelvis Without Contrast Exam date and time: 11/10/2022 3:16 AM Age: 62 years old Clinical indication: Abdominal pain; Flank; Right TECHNIQUE: Imaging protocol: Computed tomography of the abdomen and pelvis without contrast. COMPARISON: CT CHEST PE CTA 12/20/2021 12:24 PM FINDINGS: Liver: Normal. No mass. Gallbladder and bile ducts: Normal. No calcified stones. No ductal dilation. Pancreas: Normal. No ductal dilation. Spleen: Normal. No splenomegaly. Adrenal glands: Normal. No mass. Kidneys and ureters: 4.5 mm calculus right UVJ with mild right hydroureteronephrosis. Stomach and bowel: Unremarkable. No obstruction. No mucosal thickening. Appendix: No evidence of appendicitis. Intraperitoneal space: Unremarkable. No free air. No significant fluid collection. Vasculature: Unremarkable. No abdominal aortic aneurysm. Lymph nodes: Unremarkable. No enlarged lymph nodes. Urinary bladder: Unremarkable as visualized. Reproductive: Status post hysterectomy. Bones/joints: Unremarkable. No acute fracture. Soft tissues: Unremarkable. IMPRESSION: 4.5 mm calculus right UVJ with mild right hydroureteronephrosis. Lab Data Lab results reviewed: Yes I reviewed the patient's lab results. Labs: Laboratory Tests Range/Units 11/10/22 11/10/22 11/10/22 02:53 02:53 02:53 WBC (4.4-10.8) 10^3/uL 9.01 RBC (3.93-5.22) 10^6/uL 4.88 Hgb (11.2-15.7) g/dL 14.3 Hct (36.0-46.0) % 44.9 MCV (80-95) fL 92 MCH (27.0-33.0) pg 29.3 MCHC (32.0-36.0) % 31.8 L RDW (11.7-14.6) % 13.9 Plt Count (130-400) 10^3/uL 261 MPV (8.0-11.0) fL 10.1 Immature Gran % 0.2 Neutrophils % 63.6 Lymphocytes % 27.3 Monocytes % 7.2 Eosinophils % 1.1 Basophils % 0.6 Nucleated RBC % (0.0-0.3) % 0.0 Absolute Neutrophils (1.2-6.7) 10^3/uL 5.73 Absolute Lymphocytes (1.2-3.4) 10^3/uL 2.46 Absolute Monocytes (0.1-0.8) 10^3/uL 0.65 Absolute Eosinophils (0.0-0.7) 10^3/uL 0.10 Absolute Basophils (0.0-0.2) 10^3/uL 0.05 Sodium (136-145) mmol/L 143 Potassium (3.5-5.1) mmol/L 3.8 Chloride (98-107) mmol/L 106 Carbon Dioxide (21.0-32.0) mmol/L 27.1 Anion Gap (3-11) mmol/L 9.9 BUN (7-18) mg/dL 26 H Creatinine (0.55-1.02) mg/dL 1.1 H Est GFR (CKD-EPI 2020) (mL/min/1.73m2) 57.17 Glucose (74-106) mg/dL 122 H Calcium (8.5-10.1) mg/dL 10.2 H Total Bilirubin (0.2-1.0) mg/dL 0.3 AST (15-37) U/L 31 ALT (14-59) U/L 45 Alkaline Phosphatase (46-116) U/L 160 H Total Protein (6.4-8.2) g/dL 9.3 H Albumin (3.4-5.0) g/dL 4.0 Lipase (16-77) U/L 24 Urine Color (Yellow) Yellow Urine Clarity (Clear) Clear Urine pH (5-8) 7.0 Ur Specific [place] (1.005-1.025) 1.025 Urine Protein (Negative) mg/dL 100 H Urine Ketones (Negative) mg/dL Negative Urine Blood (Negative) Trace-lysed H Urine Nitrite (Negative) Negative Urine Bilirubin (Negative) Negative Urine Urobilinogen (Up to 0.2) mg/dL 0.2 Ur Leukocyte Esterase (Negative) Negative Urine RBC (0-2) HPF 3-5 H Urine WBC (0-5) HPF Negative Ur Epithelial Cells (Negative) HPF Rare Urine Crystals (Negative) HPF Negative Urine Bacteria (Negative) HPF Rare Urine Casts (Negative) LPF Negative Urine Mucus (Negative) Negative Ur Culture Indicated? No Urine Glucose (Negative) mg/dL Negative HPI General Mode of arrival: ambulatory . Date/Time Provider Initiated Documentation: 11/10/22 02:45 . Limitations to Documentation: no limitations . Information obtained by: patient . HPI Narrative: Patient is a 62-year-old female with a history of hypertension, hyperlipidemia, GERD, asthma, migraines, peripheral vascular disease, prediabetes, ankylosing spondylitis presents for dysuria and right-sided lower back pain since last night. She states she had a temp of 100.2 with a skin temperature thermometer at 9 PM last night for which she took Tylenol. Patient also admits to nausea but denies any vomiting. She denies chest pain, difficulty breathing, abdominal pain, hematuria. She denies any known history of kidney stones. She states she cannot take ibuprofen as it causes chest pain. Related Data Home Medications Medication Instructions Recorded Confirmed ferrous sulfate 325 mg (65 mg 325 mg PO DAILY 12/16/12 10/10/22 iron) tablet ascorbic acid (vitamin C) 1,000 mg 1,000 mg PO DAILY 12/24/12 10/10/22 tablet calcium carbonate 500 mg-vitamin 2 ea PO DAILY 12/24/12 11/10/22 D3 10 mcg (400 unit) tablet (Calcium 500 With D) multivitamin (Daily Vitamin tablet) 1 ea PO DAILY 12/24/12 11/10/22 magnesium 250 mg tablet 250 mg PO DAILY 12/25/12 11/10/22 loratadine 10 mg tablet 10 mg PO DAILY PRN #30 tab-caps 04/05/16 10/10/22 cholecalciferol (vitamin D3) 125 5,000 unit PO DAILY 06/13/20 11/10/22 mcg (5,000 unit) tablet (Vitamin D3) ustekinumab 90 mg/mL subcutaneous 90 mg subcut Q8W 04/02/21 10/10/22 syringe (Stelara) triamcinolone acetonide 0.1 % 1 applic topical BID 07/24/21 10/10/22 topical cream albuterol sulfate 90 mcg/actuation 1 puff inhalation Q6H PRN 09/21/21 11/10/22 aerosol inhaler (Proventil HFA) shortness of breath or wheezing #18 grams aspirin 81 mg tablet,delayed See Rx Instructions .Route 12/10/21 10/10/22 release .COMPLEX #90 tabs omega-3 fatty acids-fish oil 340 1 cap PO BID 12/25/21 11/10/22 mg-1,000 mg capsule (Fish Oil) losartan 50 mg tablet 50 mg PO DAILY #90 tab-caps 01/11/22 11/10/22 meclizine 25 mg tablet 25 mg PO BID PRN dizziness #30 tabs 01/24/22 10/10/22 metoprolol succinate 50 mg 50 mg PO DAILY #90 tabs 03/07/22 11/10/22 tablet,extended release 24 hr folic acid 1 mg tablet See Rx Instructions .Route 03/11/22 11/10/22 .COMPLEX #90 tabs simvastatin 10 mg tablet See Rx Instructions .Route 03/11/22 11/10/22 .COMPLEX #90 tabs topiramate 50 mg tablet See Rx Instructions .Route 03/11/22 11/10/22 .COMPLEX #180 tabs sumatriptan 20 mg/actuation nasal 20 mg NS ONCE #6 ea 03/13/22 11/10/22 spray cyclobenzaprine 5 mg tablet 5 mg PO TID PRN 05/10/22 10/10/22 omeprazole 40 mg capsule,delayed 40 mg PO DAILY #30 caps 06/17/22 11/10/22 release hydrochlorothiazide 12.5 mg tablet 12.5 mg PO DAILY #90 tab-caps 07/25/22 11/10/22 metformin 500 mg tablet 500 mg PO BID #180 tab-caps 09/11/22 11/10/22 fluticasone propionate 220 1 puff inhalation BID #12 grams 11/07/22 mcg/actuation HFA aerosol inhaler (Flovent HFA) tamsulosin 0.4 mg capsule (Flomax) 0.4 mg PO DAILY #10 caps 11/10/22 Previous Rx's Medication Instructions Recorded albuterol sulfate 90 mcg/actuation 1 puff inhalation Q6H PRN 09/21/21 aerosol inhaler (Proventil HFA) shortness of breath or wheezing #18 grams aspirin 81 mg tablet,delayed See Rx Instructions .Route 12/10/21 release .COMPLEX #90 tabs losartan 50 mg tablet 50 mg PO DAILY #90 tab-caps 01/11/22 meclizine 25 mg tablet 25 mg PO BID PRN dizziness #30 tabs 01/24/22 metoprolol succinate 50 mg 50 mg PO DAILY #90 tabs 03/07/22 tablet,extended release 24 hr folic acid 1 mg tablet See Rx Instructions .Route 03/11/22 .COMPLEX #90 tabs simvastatin 10 mg tablet See Rx Instructions .Route 03/11/22 .COMPLEX #90 tabs topiramate 50 mg tablet See Rx Instructions .Route 03/11/22 .COMPLEX #180 tabs sumatriptan 20 mg/actuation nasal 20 mg NS ONCE #6 ea 03/13/22 spray omeprazole 40 mg capsule,delayed 40 mg PO DAILY #30 caps 06/17/22 release hydrochlorothiazide 12.5 mg tablet 12.5 mg PO DAILY #90 tab-caps 07/25/22 metformin 500 mg tablet 500 mg PO BID #180 tab-caps 09/11/22 fluticasone propionate 220 1 puff inhalation BID #12 grams 11/07/22 mcg/actuation HFA aerosol inhaler (Flovent HFA) tamsulosin 0.4 mg capsule (Flomax) 0.4 mg PO DAILY #10 caps 11/10/22 Allergies Allergy/AdvReac Type Severity Reaction Status Date / Time celecoxib [From Celebrex] Allergy Intermediate rash Verified 11/10/22 02:45 etodolac Allergy Intermediate itching Verified 11/10/22 02:45 amoxicillin trihydrate AdvReac Intermediate vomits Verified 11/10/22 02:45 [From Augmentin] doxycycline AdvReac Intermediate VOMITS Verified 11/10/22 02:45 ibuprofen AdvReac Intermediate CHEST PAIN Verified 11/10/22 02:45 potassium clavulanate AdvReac Intermediate vomits Verified 11/10/22 02:45 [From Augmentin] cephalexin AdvReac Mild VOMITS Verified 11/10/22 02:45 General Stated Complaint: FlankPain NIKOLAS: 3 Review of Systems All systems reviewed & are unremarkable except as noted in HPI and below Constitutional Constitutional: Reports as per HPI, Denies chills and Reports fever(s) Eyes Eyes: Denies blurry vision ENT Ears, Nose, Mouth, and Throat: Denies dizziness, Denies sore throat and Denies throat swelling Cardiovascular Cardiovascular: Denies chest pain and Denies dyspnea Respiratory Respiratory: Denies cough and Denies dyspnea Gastrointestinal Gastrointestinal: Denies abdominal pain, Denies diarrhea, Reports nausea and Denies vomiting Genitourinary Genitourinary: Denies hematuria and Reports dysuria Musculoskeletal Musculoskeletal: Reports back pain and Denies numbness Integumentary/Breasts Skin/Breast: Denies lesions and Denies rash Neurologic Neurologic: Denies dizziness, Denies localized weakness and Denies numbness Allergic/Immunologic Allergic/Immunologic: Denies throat swelling PFSH All Active Problems (Updated 11/10/22 @ 04:31 by Karen Morgan DO) Ureterolithiasis (Acute) MÉNDEZ (nonalcoholic steatohepatitis) (Acute) Diabetes mellitus (Chronic) Chronic bilateral thoracic back pain (Acute) Inflammatory arthropathy (Acute) 12/13/21 [facility] Rheumatology note Morning joint stiffness (Acute) 12/13/21 [facility] Rheumatology note Chronic midline low back pain without sciatica (Acute) 12/13/21 [facility] Rheumatology note Pain in left hip (Acute) 12/03/21 [facility] Rheumatology note Neck pain (Acute) 12/13/21 [facility] Rheumatology note Trochanteric bursitis, left hip (Acute ~09/2021) Dr Mercado,[facility] Ortho Diabetes mellitus (Chronic) Papular eczema (Acute) Folliculitis (Acute) Ulcerative pancolitis without complication (Chronic ~1993) Prediabetes (Chronic) Seborrheic keratoses (Acute) Presence of left artificial hip joint (Chronic) Primary osteoarthritis of right hip (Chronic) Otitis externa (Acute 11/03/14) Urethral caruncle (Acute 08/15/17) 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 INTOLERANT Hypomagnesemia (Acute 11/23/09) Hyperlipidemia (Acute 04/15/04) simvastatin begun 2009 by [facility] Gastroesophageal reflux disease without esophagitis (Acute 10/26/03) Essential hypertension (Acute 11/13/01) goal <140/80 Disorder of bone and articular cartilage (Acute 07/15/96) OSTEOPENIA Chronic rhinitis (Acute 09/15/00) BMI 34.0-34.9,adult (Acute 08/07/15) Asthma (Acute 06/15/05) [employer] Ankylosing spondylitis (Acute 09/15/90) Adalimumab (Humira) long-term use (Acute 09/15/09) HUMIRA adalimumab for colitis and ankylosing spondylitis, Dr Eden Reynoso; Dr Marc Chan (GI) Abnormal blood sugar (Acute 08/07/15) early DM A1c 6.5 08/07/15 Medical History (Updated 11/10/22 @ 04:31 by Karen Morgan DO) Closed displaced fracture of proximal phalanx of right little finger with routin e healing (06/04/17) Dizziness (06/10/08) SARS-CoV-2 positive 09/21/20-pt reports she had a positive result from a pcr done at [facility]. given pulse oximeter Surgical History (Updated 10/18/22 @ 13:19 by Avani Munguia RN) Colonoscopy w/ Bx (03/04/17) [facility] 09/24/22 H/O colonoscopy 12/19/20 colonoscopy per [facility] note from 12/19/20 Vaginal hysterectomy (03/10/18) Family History (Updated 04/09/22 @ 14:51 by Francisca Zaragoza RN) Mother Heart disease Hypertension Hepatitis C Father Alcohol abuse Lung cancer Heart disease Sister Heart disease Paternal Aunt Diabetes Social History (Updated 04/09/22 @ 14:50 by Francisca Zaragoza RN) Smoking/Tobacco Use Status: Never Smoking risk assessment performed?: Yes Alcohol Intake: current Alcohol Intake frequency: holidays/special occasions only Alcohol type: wine Drug use: Never Substance use type: does not use Adopted: No Caregiver/Support person: No Household members: spouse and family Housing: house Number of Children: 1 number of grandchildren: 2 Communication Needs: Corrective Lenses Education Level: high school Do you need help understanding health information?: Never current occupation: works [employer] Pets and animals: No Sexually active: Yes Do you think of yourself as: straight/heterosexual Current gender identity: female What is your relationship status?: How often do you talk on the phone with friends or family?: three or more times per week How often do you get together with friends or relatives?: three or more times per week How often do you attend evangelical or anabaptist services?: decline to answer Do you belong to any clubs or organized social groups?: no Panel score (0-1 are the most socially isolated patients): 2 What type of physical activity do you participate in: walking and other Details: kayak Duration: 15-30 minutes/day Frequency: 3-4 times per week Bia/Gnosticist: Church Special bia needs: No Seatbelt use: always Drive intox or ride w/intox 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 Working smoke detector in home: Yes Carbon monox detector in home: Yes Do you feel safe at home: Yes Do you feel safe in your relationship?: Yes Exam Const General: cooperative, uncomfortable and no acute distress Orientation: alert, awake and oriented x3 HENMT Head: normal to inspection Face and sinus: normal facial exam Eyes General: appearance normal, both eyes and all related structures Pupils: PERRL EOM: EOM intact bilaterally Neck Neck: normal visual inspection and No submandibular swelling Lymphatic: no lymphadenopathy noted Chest Chest: normal inspection of the chest and no tenderness Resp Effort & Inspection: normal respiratory effort and able to speak in complete se ntences Auscultation: clear to auscultation bilaterally Cardio Rate: regular rate Rhythm: regular rhythm GI Inspection: normal to inspection Palpation: soft, not firm, not rigid and nontender Auscultation: hypoactive bowel sounds Back/Spine/Pelvis Back: no CVA tenderness Skin General skin exam: no rashes or lesions noted Neuro General: patient alert, patient awake and patient oriented x3 Cognition: normal cognition Speech: speech normal Motor: muscle tone normal throughout Sensory Exam: no sensory deficits noted Extrem General: normal to inspection, full ROM, capillary refill normal, no calf tenderness bilaterally and no edema Psych Appearance: grossly normal Mental Status: mental status grossly normal Speech and Movement: speech and movement normal Affect: normal affect Course Vital Signs Vital signs: Vital Signs Temperature 98.1 F 11/10/22 02:39 Pulse 73 11/10/22 02:39 Respiratory Rate 18 11/10/22 02:39 Blood Pressure 157/66 H 11/10/22 02:39 Pulse Oximetry 98 11/10/22 02:39 Temperature 98.1 F 11/10/22 02:39 Temperature Source Oral 11/10/22 02:39 Pulse 73 11/10/22 02:39 Respiratory Rate 18 11/10/22 02:39 Respiratory Effort Normal 11/10/22 02:43 Blood Pressure 157/66 H 11/10/22 02:39 Blood Pressure Position Sitting 11/10/22 02:39 Pulse Oximetry 98 11/10/22 02:39 Oxygen Delivery Method Room Air 11/10/22 02:39 Oxygen Flow Rate 0 11/10/22 02:39 Pain Level 8 11/10/22 02:39 Lab/Test Results Lab/Test Results: Laboratory Tests Range/Units 11/10/22 11/10/22 11/10/22 02:53 02:53 02:53 WBC (4.4-10.8) 10^3/uL 9.01 RBC (3.93-5.22) 10^6/uL 4.88 Hgb (11.2-15.7) g/dL 14.3 Hct (36.0-46.0) % 44.9 MCV (80-95) fL 92 MCH (27.0-33.0) pg 29.3 MCHC (32.0-36.0) % 31.8 L RDW (11.7-14.6) % 13.9 Plt Count (130-400) 10^3/uL 261 MPV (8.0-11.0) fL 10.1 Immature Gran % 0.2 Neutrophils % 63.6 Lymphocytes % 27.3 Monocytes % 7.2 Eosinophils % 1.1 Basophils % 0.6 Nucleated RBC % (0.0-0.3) % 0.0 Absolute Neutrophils (1.2-6.7) 10^3/uL 5.73 Absolute Lymphocytes (1.2-3.4) 10^3/uL 2.46 Absolute Monocytes (0.1-0.8) 10^3/uL 0.65 Absolute Eosinophils (0.0-0.7) 10^3/uL 0.10 Absolute Basophils (0.0-0.2) 10^3/uL 0.05 Sodium (136-145) mmol/L 143 Potassium (3.5-5.1) mmol/L 3.8 Chloride (98-107) mmol/L 106 Carbon Dioxide (21.0-32.0) mmol/L 27.1 Anion Gap (3-11) mmol/L 9.9 BUN (7-18) mg/dL 26 H Creatinine (0.55-1.02) mg/dL 1.1 H Est GFR (CKD-EPI 2020) (mL/min/1.73m2) 57.17 Glucose (74-106) mg/dL 122 H Calcium (8.5-10.1) mg/dL 10.2 H Total Bilirubin (0.2-1.0) mg/dL 0.3 AST (15-37) U/L 31 ALT (14-59) U/L 45 Alkaline Phosphatase (46-116) U/L 160 H Total Protein (6.4-8.2) g/dL 9.3 H Albumin (3.4-5.0) g/dL 4.0 Lipase (16-77) U/L 24 Urine Color (Yellow) Yellow Urine Clarity (Clear) Clear Urine pH (5-8) 7.0 Ur Specific [place] (1.005-1.025) 1.025 Urine Protein (Negative) mg/dL 100 H Urine Ketones (Negative) mg/dL Negative Urine Blood (Negative) Trace-lysed H Urine Nitrite (Negative) Negative Urine Bilirubin (Negative) Negative Urine Urobilinogen (Up to 0.2) mg/dL 0.2 Ur Leukocyte Esterase (Negative) Negative Urine RBC (0-2) HPF 3-5 H Urine WBC (0-5) HPF Negative Ur Epithelial Cells (Negative) HPF Rare Urine Crystals (Negative) HPF Negative Urine Bacteria (Negative) HPF Rare Urine Casts (Negative) LPF Negative Urine Mucus (Negative) Negative Ur Culture Indicated? No Urine Glucose (Negative) mg/dL Negative
--- NOTE | 2022-11-10 03:31 | DI.VRAD_ITS ---
PROCEDURE INFORMATION: Exam: CT Abdomen And Pelvis Without Contrast Exam date and time: 11/10/2022 3:16 AM Age: 62 years old Clinical indication: Abdominal pain; Flank; Right TECHNIQUE: Imaging protocol: Computed tomography of the abdomen and pelvis without contrast. COMPARISON: CT CHEST PE CTA 12/20/2021 12:24 PM FINDINGS: Liver: Normal. No mass. Gallbladder and bile ducts: Normal. No calcified stones. No ductal dilation. Pancreas: Normal. No ductal dilation. Spleen: Normal. No splenomegaly. Adrenal glands: Normal. No mass. Kidneys and ureters: 4.5 mm calculus right UVJ with mild right hydroureteronephrosis. Stomach and bowel: Unremarkable. No obstruction. No mucosal thickening. Appendix: No evidence of appendicitis. Intraperitoneal space: Unremarkable. No free air. No significant fluid collection. Vasculature: Unremarkable. No abdominal aortic aneurysm. Lymph nodes: Unremarkable. No enlarged lymph nodes. Urinary bladder: Unremarkable as visualized. Reproductive: Status post hysterectomy. Bones/joints: Unremarkable. No acute fracture. Soft tissues: Unremarkable. IMPRESSION: 4.5 mm calculus right UVJ with mild right hydroureteronephrosis. Dictated and Authenticated by: Juan Mota MD. Ordering:GALO Jones MD
[2022-11-10] MEDS: oxyCODONE 5 MG TAB PO (04:12)
[2022-11-10] MEDS: Ondansetron O.D.T. 4 MG TABEF, 3 TABS/BTL PO (04:49)
[2022-11-10] MEDS: Tamsulosin 0.4 MG CAPCR PO (04:49)
--- NOTE | 2022-11-10 04:49 | NUR.NOTE ---
Referral faxed to [facility] to f/u for kidney stone.Nursing Note:
[2022-11-10 04:51] VITALS: BP 148/61; PULSE 61; RESP 16; TEMP 36.7; O2SAT 98
== END 2022-11-10 05:14 | disposition home or self-care (01) ==
PROVIDERS: Emergency Provider Physician Assistant; PCP Family Medicine
DX: N13.2 Hydronephrosis with renal and ureteral calculous obstruction (principal)
CPT/HCPCS: 36415; 80053; 83690; 96361; 96374; 96375; 99284; 74176; 81003; 81015; 85025; J0131; J2405

== ENCOUNTER 2022-11-12 13:04 | Outpatient (CLI) | payer OTHER, SELFPAY ==
[2022-11-18 13:44] LABS: Source: Passed Stone
== END 2022-11-12 13:05 | disposition home or self-care (01) ==
LOC: LBN 13:04
PROVIDERS: Urology; PCP Family Medicine; Visit Provider Nurse Practitioner Gerontology
DX: N20.1 Calculus of ureter (principal)
CPT/HCPCS: 82365

== ENCOUNTER 2022-12-06 01:16 | Outpatient (CLI) | payer OTHER, SELFPAY ==
--- NOTE | 2022-12-06 | DI.RAD_ITS ---
Exam(s) XR ARTHRITIS SERIES EXAM: XR ARTHRITIS SERIES CLINICAL HISTORY: ARTHALGIA BOTH HANDS, M25.541,M25.542, INF FLAM ARTHROPATHY,OA. TECHNIQUE: 2D digital imaging was performed. Six images were obtained. COMPARISON: CR XR HAND RT COMPLETE from 07/26/2019 FINDINGS: BONES: No acute fracture is present. No bony destructive lesion is seen. JOINTS: No dislocation present. The radiocarpal joints are well maintained as are the joint spaces i n the carpus. The metacarpophalangeal joints are unremarkable. There are mild degenerative changes seen in the interphalangeal joints of the hands bilaterally. This is characterized by joint space na rrowing and bony hypertrophy. The findings are most marked in the DIP joints of the fingers. No per iarticular osteopenia or soft tissue calcifications are seen. No erosions are present. SOFT TISSUE: Normal. IMPRESSION: Mild degenerative changes seen of the hands. DATA REPOSITORY: RADIATION DOSE DELIVERED:
== END 2022-12-06 01:36 ==
LOC: DI 01:16
PROVIDERS: PCP Family Medicine; Visit Provider Internal Medicine
DX: M25.541 Pain in joints of right hand (principal); M25.542 Pain in joints of left hand; M19.041 Primary osteoarthritis, right hand; M19.042 Primary osteoarthritis, left hand
CPT/HCPCS: 73120

== ENCOUNTER 2022-12-11 01:59 | Outpatient (CLI) | payer OTHER, SELFPAY ==
[2022-12-11 14:47] LABS: Abs Immature Grans 0.02 10^3/uL (0.0-0.06); Absolute Basophil Count 0.04 10^3/uL (0.0-0.2); Absolute Eosinophil Count 0.17 10^3/uL (0.0-0.7); Absolute Lymphocyte Count 2.45 10^3/uL (1.2-3.4); Absolute Monocyte Count 0.58 10^3/uL (0.1-0.8); Absolute Neutrophil Count 4.75 10^3/uL (1.2-6.7); Basophils % 0.5; Eosinophils % 2.1; HCT 41.2 % (36.0-46.0); HGB 13.6 g/dL (11.2-15.7); Immature Grans % 0.2; Lymphocytes % 30.6; MCH 29.6 pg (27.0-33.0); MCV 90 fL (80-95); MPV 10.1 fL (8.0-11.0); Monocytes % 7.2; Neutrophils % 59.4; Platelet Count 255 10^3/uL (130-400); RBC 4.59 10^6/uL (3.93-5.22); RDW 13.3 % (11.7-14.6); RDW-SD 43.9 fL; WBC 8.01 10^3/uL (4.4-10.8)
[2022-12-11 15:02] LABS: ESR 36 mm/hr (0-30)
[2022-12-11 15:24] LABS: ALT 25 U/L (14-59); AST 20 U/L (15-37); Albumin 3.8 g/dL (3.4-5.0); Alkaline Phosphatase 127 U/L (46-116); Bilirubin, Direct 0.1 mg/dL (0.0-0.2); Bilirubin, Total 0.3 mg/dL (0.2-1.0); C-Reactive Protein 1.41 mg/dL (0.0-0.3); CREATININE 1.1 mg/dL (0.55-1.02); Estimated GFR 57.17 (mL/min/1.73m2); Total Protein 8.1 g/dL (6.4-8.2)
== END 2022-12-11 02:00 | disposition home or self-care (01) ==
LOC: LBO 01:59
PROVIDERS: Internal Medicine; PCP Family Medicine; Visit Provider Family Medicine
DX: M45.2 Ankylosing spondylitis of cervical region (principal); K51.90 Ulcerative colitis, unspecified, without complications; M16.0 Bilateral primary osteoarthritis of hip; M07.60 Enteropathic arthropathies, unspecified site; M25.541 Pain in joints of right hand; M25.542 Pain in joints of left hand; Z79.899 Other long term (current) drug therapy
CPT/HCPCS: 36415; 80076; 85652; 82565; 85025; 86140

== ENCOUNTER 2023-03-24 02:51 | Outpatient (CLI) | payer OTHER, SELFPAY ==
[2023-03-24 15:21] LABS: Abs Immature Grans 0.03 10^3/uL (0.0-0.06); Absolute Basophil Count 0.04 10^3/uL (0.0-0.2); Absolute Eosinophil Count 0.26 10^3/uL (0.0-0.7); Absolute Monocyte Count 0.68 10^3/uL (0.1-0.8); Absolute Neutrophil Count 5.41 10^3/uL (1.2-6.7); Basophils % 0.5; HCT 39.3 % (36.0-46.0); HGB 12.6 g/dL (11.2-15.7); Immature Grans % 0.3; Lymphocytes % 25.5; MCHC 32.1 % (32.0-36.0); MCV 91 fL (80-95); MPV 9.8 fL (8.0-11.0); Monocytes % 7.9; Neutrophils % 62.8; Platelet Count 257 10^3/uL (130-400); RBC 4.34 10^6/uL (3.93-5.22); RDW 13.8 % (11.7-14.6); WBC 8.62 10^3/uL (4.4-10.8)
[2023-03-24 16:20] LABS: ALT 24 U/L (14-59); AST 18 U/L (15-37); Albumin 3.5 g/dL (3.4-5.0); Alkaline Phosphatase 127 U/L (46-116); Anion Gap 9.1 mmol/L (3-11); BUN 35 mg/dL (7-18); Bilirubin, Total 0.3 mg/dL (0.2-1.0); CO2 27.9 mmol/L (21.0-32.0); CREATININE 1.2 mg/dL (0.55-1.02); Calcium 9.7 mg/dL (8.5-10.1); Calculated LDL 77 mg/dL (<100); Chloride 106 mmol/L (98-107); Cholesterol 176 mg/dL (<200); Glucose 96 mg/dL (74-106); HDL Cholesterol 48 mg/dL (40-60); Sodium 143 mmol/L (136-145); Total Protein 8.3 g/dL (6.4-8.2); Triglyceride 255 mg/dL (<150)
== END 2023-03-24 02:52 | disposition home or self-care (01) ==
PROVIDERS: PCP Family Medicine; Visit Provider Physician Assistant
DX: Z51.81 Encounter for therapeutic drug level monitoring (principal)
CPT/HCPCS: 36415; 80053; 80061; 85025

== ENCOUNTER 2023-05-16 03:16 | Outpatient (CLI) | payer OTHER, SELFPAY ==
[2023-05-16 14:45] LABS: Abs Immature Grans 0.01 10^3/uL (0.0-0.06); Absolute Basophil Count 0.03 10^3/uL (0.0-0.2); Absolute Eosinophil Count 0.13 10^3/uL (0.0-0.7); Absolute Lymphocyte Count 2.66 10^3/uL (1.2-3.4); Absolute Monocyte Count 0.35 10^3/uL (0.1-0.8); Absolute Neutrophil Count 2.77 10^3/uL (1.2-6.7); Basophils % 0.5; Eosinophils % 2.2; HCT 42.7 % (36.0-46.0); HGB 14.1 g/dL (11.2-15.7); Immature Grans % 0.2; Lymphocytes % 44.7; MCH 29.5 pg (27.0-33.0); MCV 89 fL (80-95); MPV 10.2 fL (8.0-11.0); Monocytes % 5.9; Neutrophils % 46.5; Platelet Count 231 10^3/uL (130-400); RBC 4.78 10^6/uL (3.93-5.22); RDW 13.2 % (11.7-14.6); RDW-SD 43.1 fL; WBC 5.95 10^3/uL (4.4-10.8)
[2023-05-16 14:50] LABS: ESR 10 mm/hr (0-30)
[2023-05-16 15:33] LABS: ALT 23 U/L (14-59); AST 23 U/L (15-37); Albumin 3.8 g/dL (3.4-5.0); Alkaline Phosphatase 127 U/L (46-116); Bilirubin, Direct 0.1 mg/dL (0.0-0.2); Bilirubin, Total 0.4 mg/dL (0.2-1.0); C-Reactive Protein 0.06 mg/dL (0.0-0.3); Total Protein 8.3 g/dL (6.4-8.2)
[2023-05-16 16:36] LABS: Calculated LDL 92 mg/dL (<100); Cholesterol 204 mg/dL (<200); HDL Cholesterol 52 mg/dL (40-60); Triglyceride 302 mg/dL (<150)
[2023-05-19 10:42] LABS: IgA 557 mg/dL (85-499)
[2023-05-19 12:38] LABS: Tissue Transglutaminase IgA <1.2 U/mL (<4.0)
[2023-05-20 18:24] LABS: Mitochondrial Ab, M2 <0.1 U
== END 2023-05-16 03:17 | disposition home or self-care (01) ==
PROVIDERS: PCP Family Medicine; Visit Provider Internal Medicine Gastroenterology
DX: M45.2 Ankylosing spondylitis of cervical region (principal); K51.90 Ulcerative colitis, unspecified, without complications; M16.0 Bilateral primary osteoarthritis of hip; M25.541 Pain in joints of right hand; M25.542 Pain in joints of left hand; Z79.899 Other long term (current) drug therapy; M07.69 Enteropathic arthropathies, multiple sites; K51.019 Ulcerative (chronic) pancolitis with unspecified complications
CPT/HCPCS: 36415; 80061; 80076; 82784; 83516; 85652; 85025; 86140

== ENCOUNTER 2023-05-30 01:53 | Outpatient (CLI) | payer OTHER, SELFPAY ==
[2023-05-30 14:54] LABS: Abs Immature Grans 0.02 10^3/uL (0.0-0.06); Absolute Basophil Count 0.02 10^3/uL (0.0-0.2); Absolute Eosinophil Count 0.09 10^3/uL (0.0-0.7); Absolute Lymphocyte Count 2.63 10^3/uL (1.2-3.4); Absolute Monocyte Count 0.38 10^3/uL (0.1-0.8); Absolute Neutrophil Count 2.75 10^3/uL (1.2-6.7); Basophils % 0.3; Eosinophils % 1.5; HCT 42.4 % (36.0-46.0); HGB 14.2 g/dL (11.2-15.7); Immature Grans % 0.3; Lymphocytes % 44.7; MCH 29.7 pg (27.0-33.0); MCHC 33.5 % (32.0-36.0); MCV 89 fL (80-95); MPV 10.8 fL (8.0-11.0); Monocytes % 6.5; Neutrophils % 46.7; Platelet Count 187 10^3/uL (130-400); RBC 4.78 10^6/uL (3.93-5.22); RDW 13.3 % (11.7-14.6); RDW-SD 43.6 fL; WBC 5.89 10^3/uL (4.4-10.8)
[2023-05-30 14:58] LABS: ESR 5 mm/hr (0-30)
[2023-05-30 15:30] LABS: ALT 29 U/L (14-59); AST 24 U/L (15-37); Albumin 3.8 g/dL (3.4-5.0); Alkaline Phosphatase 126 U/L (46-116); Bilirubin, Total 0.4 mg/dL (0.2-1.0); Calculated LDL 99 mg/dL (<100); Cholesterol 199 mg/dL (<200); HDL Cholesterol 62 mg/dL (40-60); Total Protein 8.1 g/dL (6.4-8.2); Triglyceride 194 mg/dL (<150)
[2023-05-30 15:52] LABS: Bilirubin, Direct 0.1 mg/dL (0.0-0.2)
[2023-05-30 15:57] LABS: C-Reactive Protein < 0.05 mg/dL (0.0-0.3)
[2023-06-02 10:54] LABS: IgA 536 mg/dL (85-499)
[2023-06-02 11:54] LABS: Tissue Transglutaminase IgA <1.2 U/mL (<4.0)
[2023-06-03 14:49] LABS: Mitochondrial Ab, M2 <0.1 U
== END 2023-05-30 01:54 | disposition home or self-care (01) ==
PROVIDERS: PCP Family Medicine; Visit Provider Internal Medicine
DX: M45.2 Ankylosing spondylitis of cervical region (principal); Z79.899 Other long term (current) drug therapy; M16.0 Bilateral primary osteoarthritis of hip; M25.541 Pain in joints of right hand
CPT/HCPCS: 36415; 80061; 80076; 82784; 83516; 85652; 85025; 86140

== ENCOUNTER 2023-06-13 03:25 | Outpatient (CLI) | payer OTHER, SELFPAY ==
[2023-06-13 14:42] LABS: Abs Immature Grans 0.02 10^3/uL (0.0-0.06); Absolute Basophil Count 0.02 10^3/uL (0.0-0.2); Absolute Eosinophil Count 0.11 10^3/uL (0.0-0.7); Absolute Lymphocyte Count 2.91 10^3/uL (1.2-3.4); Absolute Monocyte Count 0.39 10^3/uL (0.1-0.8); Absolute Neutrophil Count 2.46 10^3/uL (1.2-6.7); Basophils % 0.3; Eosinophils % 1.9; HCT 42.8 % (36.0-46.0); HGB 14.2 g/dL (11.2-15.7); Immature Grans % 0.3; Lymphocytes % 49.2; MCH 29.4 pg (27.0-33.0); MCHC 33.2 % (32.0-36.0); MCV 89 fL (80-95); Monocytes % 6.6; Neutrophils % 41.7; Platelet Count 217 10^3/uL (130-400); RBC 4.83 10^6/uL (3.93-5.22); RDW 13.3 % (11.7-14.6); RDW-SD 43.4 fL; WBC 5.91 10^3/uL (4.4-10.8)
[2023-06-13 15:17] LABS: ALT 27 U/L (14-59); AST 24 U/L (15-37); Albumin 3.8 g/dL (3.4-5.0); Alkaline Phosphatase 142 U/L (46-116); Bilirubin, Direct 0.1 mg/dL (0.0-0.2); Bilirubin, Total 0.3 mg/dL (0.2-1.0); C-Reactive Protein 0.17 mg/dL (0.0-0.3); Total Protein 8.2 g/dL (6.4-8.2)
[2023-06-13 15:37] LABS: Calculated LDL 89 mg/dL (<100); Cholesterol 215 mg/dL (<200); HDL Cholesterol 59 mg/dL (40-60); Triglyceride 338 mg/dL (<150)
[2023-06-16 09:58] LABS: IgA 541 mg/dL (85-499)
[2023-06-16 10:40] LABS: ESR (LRH) 11 mm/hr
[2023-06-16 12:48] LABS: Tissue Transglutaminase IgA <1.2 U/mL (<4.0)
[2023-06-16 15:41] LABS: Mitochondrial Ab, M2 <0.1 U
== END 2023-06-13 03:26 | disposition home or self-care (01) ==
LOC: LBO 03:25
PROVIDERS: Internal Medicine; PCP Family Medicine; Visit Provider Family Medicine
DX: M45.2 Ankylosing spondylitis of cervical region (principal); K51.90 Ulcerative colitis, unspecified, without complications; M16.0 Bilateral primary osteoarthritis of hip; M07.60 Enteropathic arthropathies, unspecified site; M25.541 Pain in joints of right hand; M25.542 Pain in joints of left hand; Z79.899 Other long term (current) drug therapy; K51.019 Ulcerative (chronic) pancolitis with unspecified complications; R79.89 Other specified abnormal findings of blood chemistry
CPT/HCPCS: 36415; 80061; 80076; 82784; 83516; 85652; 85025; 86140

== ENCOUNTER 2023-06-27 04:31 | Outpatient (CLI) | payer OTHER, SELFPAY ==
[2023-06-27 14:56] LABS: Abs Immature Grans 0.03 10^3/uL (0.0-0.06); Absolute Basophil Count 0.03 10^3/uL (0.0-0.2); Absolute Eosinophil Count 0.05 10^3/uL (0.0-0.7); Absolute Lymphocyte Count 2.48 10^3/uL (1.2-3.4); Absolute Neutrophil Count 5.46 10^3/uL (1.2-6.7); Basophils % 0.3; Eosinophils % 0.6; HCT 41.3 % (36.0-46.0); HGB 13.6 g/dL (11.2-15.7); Immature Grans % 0.3; Lymphocytes % 28.7; MCH 29.5 pg (27.0-33.0); MCHC 32.9 % (32.0-36.0); MCV 90 fL (80-95); MPV 10.6 fL (8.0-11.0); Monocytes % 6.9; Neutrophils % 63.2; Platelet Count 229 10^3/uL (130-400); RBC 4.61 10^6/uL (3.93-5.22); RDW 13.5 % (11.7-14.6); RDW-SD 43.9 fL; WBC 8.65 10^3/uL (4.4-10.8)
[2023-06-27 15:26] LABS: ALT 26 U/L (14-59); AST 23 U/L (15-37); Albumin 3.6 g/dL (3.4-5.0); Alkaline Phosphatase 135 U/L (46-116); Bilirubin, Total 0.3 mg/dL (0.2-1.0); Total Protein 8.2 g/dL (6.4-8.2)
[2023-06-27 15:27] LABS: Bilirubin, Direct < 0.1 mg/dL (0.0-0.2)
[2023-06-27 16:10] LABS: Calculated LDL 96 mg/dL (<100); Cholesterol 190 mg/dL (<200); HDL Cholesterol 53 mg/dL (40-60); Triglyceride 208 mg/dL (<150)
[2023-06-30 09:34] LABS: ESR (LRH) 22 mm/hr
[2023-06-30 11:16] LABS: IgA 496 mg/dL (85-499)
[2023-06-30 13:35] LABS: Mitochondrial Ab, M2 <0.1 U
[2023-07-01 13:11] LABS: Tissue Transglutaminase IgA <1.2 U/mL (<4.0)
== END 2023-06-27 04:32 | disposition home or self-care (01) ==
PROVIDERS: PCP Family Medicine; Visit Provider Internal Medicine
DX: Z79.899 Other long term (current) drug therapy (principal); M45.2 Ankylosing spondylitis of cervical region; K51.90 Ulcerative colitis, unspecified, without complications; M16.0 Bilateral primary osteoarthritis of hip
CPT/HCPCS: 36415; 80061; 80076; 82784; 83516; 85652; 85025; 86140

== ENCOUNTER 2023-09-11 20:02 | Outpatient (REF) | payer OTHER, SELFPAY ==
[2023-09-11 17:54] LABS: Bilirubin Negative (Negative); Blood Moderate (Negative); Clarity Turbid (Clear); Glucose Negative (Negative); Ketones Negative (Negative); Leukocyte Esterase Large (Negative); Nitrite Positive (Negative); Specific Gravity 1.025 (1.005-1.025); Urobilinogen 0.2 mg/dL (Up to 0.2); pH 5.5 (5-8)
[2023-09-11 18:03] LABS: C & S Indicated? C&S Done As Ordered; WBC >50 HPF (0-5)
== END 2023-09-11 20:03 | disposition home or self-care (01) ==
LOC: LBN 20:02
PROVIDERS: PCP Family Medicine; Visit Provider Physician Assistant Medical
DX: R30.0 Dysuria (principal)
CPT/HCPCS: 87077; 81003; 81015; 87086; 87186

== ENCOUNTER 2023-10-08 02:56 | Outpatient (CLI) | payer OTHER, SELFPAY ==
[2023-10-08 14:45] LABS: Abs Immature Grans 0.03 10^3/uL (0.0-0.06); Absolute Basophil Count 0.03 10^3/uL (0.0-0.2); Absolute Eosinophil Count 0.07 10^3/uL (0.0-0.7); Absolute Lymphocyte Count 2.65 10^3/uL (1.2-3.4); Absolute Monocyte Count 0.57 10^3/uL (0.1-0.8); Absolute Neutrophil Count 4.01 10^3/uL (1.2-6.7); Basophils % 0.4; ESR 4 mm/hr (0-30); HCT 39.9 % (36.0-46.0); HGB 13.1 g/dL (11.2-15.7); Immature Grans % 0.4; MCH 30.6 pg (27.0-33.0); MCHC 32.8 % (32.0-36.0); MCV 93 fL (80-95); MPV 9.8 fL (8.0-11.0); Monocytes % 7.7; Neutrophils % 54.5; Platelet Count 259 10^3/uL (130-400); RBC 4.28 10^6/uL (3.93-5.22); RDW 14.9 % (11.7-14.6); RDW-SD 51.3 fL; WBC 7.36 10^3/uL (4.4-10.8)
[2023-10-08 15:30] LABS: ALT 25 U/L (14-59); AST 23 U/L (15-37); Albumin 3.9 g/dL (3.4-5.0); Alkaline Phosphatase 102 U/L (46-116); Bilirubin, Direct 0.1 mg/dL (0.0-0.2); Bilirubin, Total 0.4 mg/dL (0.2-1.0); C-Reactive Protein 0.12 mg/dL (0.0-0.3); Total Protein 8.3 g/dL (6.4-8.2)
[2023-10-08 15:50] LABS: Iron 62 ug/dL (50-170); Total Iron Binding Capacity 289 ug/dL (250-450); Transferrin Sat 21 % (15-50)
[2023-10-08 16:17] LABS: Ferritin 398 ng/mL (8-252)
== END 2023-10-08 02:57 | disposition home or self-care (01) ==
PROVIDERS: PCP Family Medicine; Visit Provider Internal Medicine Gastroenterology
DX: K51.019 Ulcerative (chronic) pancolitis with unspecified complications (principal)
CPT/HCPCS: 36415; 80076; 85652; 82728; 83540; 83550; 85025; 86140

== ENCOUNTER 2023-10-16 09:33 | Outpatient (REF) | payer OTHER, SELFPAY ==
[2023-10-16 16:24] LABS: COVID-19 PCR Negative (Negative); Influenza A PCR Negative (Negative); Influenza B PCR Negative (Negative); RSV PCR Negative (Negative)
[2023-10-16 16:25] LABS: Source Nasopharynx
== END 2023-10-16 09:34 | disposition home or self-care (01) ==
LOC: LBN 09:33
PROVIDERS: PCP Family Medicine; Visit Provider Student in an Organized Health Care Education/Training Program
DX: R09.89 Other specified symptoms and signs involving the circulatory and respiratory systems (principal); Z20.822 Contact with and (suspected) exposure to COVID-19; Z20.828 Contact with and (suspected) exposure to other viral communicable diseases
CPT/HCPCS: 87637

== ENCOUNTER 2023-10-20 05:18 | Emergency (ER) | payer OTHER, SELFPAY ==
[2023-10-20] VITALS (31 sets, daily range): BP systolic 120–176; BP diastolic 43–77; PULSE 34–93; RESP 9–30; TEMP 35.7
--- NOTE | 2023-10-20 05:15 | RT.EKG_ITS ---
APPROVED REPORT Exam: Resting ECG Reason for Exam: Trouble breathing Patient Location: E HR:37 bpm ECG Measurements Heart Rate 37 AXIS MT 281 P -85 QRSd 87 QRS -4 QT 528 T 53 QTc 415 Conclusion Sinus or ectopic atrial bradycardia...P axis (-45,135), rate< 60 Prolonged MT interval...MT >230, V-rate 30- 49 Physician: Sinus vidya with prolonged MT. Does not appear to be a 3rd degree block. Questionable ecto pic or missed beat near ST segments
--- NOTE | 2023-10-20 05:15 | RT.EKG_ITS ---
APPROVED REPORT Exam: Resting ECG Reason for Exam: bradycardia Patient Location: E HR:36 bpm ECG Measurements Heart Rate 36 AXIS MA [id number] P 0 QRSd 92 QRS -11 QT 503 T 20 QTc 389 Conclusion AV block, complete (third degree)...V-rate< 50, AV dissociation Physician: complete heart block I have reviewed and interpreted ECG and agree with software generated interpretation.
[2023-10-20] MEDS: Atropine 1 MG/10 ML SYRINGE 0.5 MG IVP (05:47)
[2023-10-20 05:48] LABS: Abs Immature Grans 0.03 10^3/uL (0.0-0.06); Absolute Basophil Count 0.04 10^3/uL (0.0-0.2); Absolute Eosinophil Count 0.14 10^3/uL (0.0-0.7); Absolute Lymphocyte Count 2.86 10^3/uL (1.2-3.4); Absolute Monocyte Count 0.76 10^3/uL (0.1-0.8); Absolute Neutrophil Count 5.63 10^3/uL (1.2-6.7); Basophils % 0.4; Eosinophils % 1.5; HCT 43.4 % (36.0-46.0); HGB 14.1 g/dL (11.2-15.7); Immature Grans % 0.3; Lymphocytes % 30.2; MCH 30.5 pg (27.0-33.0); MCHC 32.5 % (32.0-36.0); MCV 94 fL (80-95); MPV 10.6 fL (8.0-11.0); Neutrophils % 59.6; Platelet Count 246 10^3/uL (130-400); RBC 4.63 10^6/uL (3.93-5.22); RDW 14.6 % (11.7-14.6); RDW-SD 50.4 fL; WBC 9.46 10^3/uL (4.4-10.8)
--- NOTE | 2023-10-20 06:00 | DI.RAD_ITS ---
Exam(s) XR PORTABLE CHEST AP EXAM: XR PORTABLE CHEST AP CLINICAL HISTORY: sob. TECHNIQUE: 2D digital imaging was performed. COMPARISON: CR XR PORTABLE CHEST AP from 12/20/2021 FINDINGS: Single AP portable view. Chest leads and cardiac pad in place. Heart size is upper normal. The mediastinum is not widened. Lungs are clear. No infiltrates nor obvious pleural effusions. IMPRESSION: No acute pulmonary findings on this single AP portable view of the chest. DATA REPOSITORY: RADIATION DOSE DELIVERED:
[2023-10-20 06:01] LABS: PTT Activated 23.2 sec (23.6-32.8); Prothrombin Time 9.9 sec (9.1-11.1)
--- NOTE | 2023-10-20 06:05 | W.ED.GENAD ---
HPI General Date/Time Provider Initiated Documentation: 10/20/23 05:20. HPI Narrative: This is a very pleasant 63-year-old female with a past medical history of ankylosing spondylitis, fused spine secondary to the ankylosing spondylitis, ulcerative colitis, diabetes, high cholesterol, asthma, currently taking Rinvoq for her ankylosing spondylitis, and on metoprolol for her high blood pressure, who presents today for evaluation of fatigue. Patient states that 1 week ago she got her COVID booster, along after that she began feeling somewhat fatigued. She went to see her primary care provider few days ago which at that time demonstrated stable vital signs and a negative COVID flu and RSV test. The assumption was that she was potentially battling a mild virus at that time, and the patient continued to have mild symptoms of fatigue however last night symptoms became significantly worse. This morning she got up and took her morning medications, and moments later felt extremely short of breath and fatigued. She checked her pulse and noted that it was in the 30s. She also used a pulse oximeter which showed concern for a low oxygen level potentially in the 80s, and she came to the ER for further evaluation. She denies any syncope but does admit to lightheadedness. She denies any new medications, or trauma. She denies any fever. She denies any family history of pacemaker requirement. She denies any previous cardiac disease otherwise. Family history is positive for heart attacks. No other complaints at this time. No other modifying factors. Related Data Home Medications Medication Instructions Recorded Confirmed ascorbic acid (vitamin C) 1,000 mg 1,000 mg PO DAILY 12/24/12 10/20/23 tablet calcium carbonate 500 mg-vitamin 2 ea PO DAILY 12/24/12 10/20/23 D3 10 mcg (400 unit) tablet (Calcium 500 With D) multivitamin (Daily Vitamin tablet) 1 ea PO DAILY 12/24/12 10/20/23 magnesium 250 mg tablet 250 mg PO DAILY 12/25/12 10/20/23 loratadine 10 mg tablet 10 mg PO DAILY PRN #30 tab-caps 04/05/16 10/20/23 cholecalciferol (vitamin D3) 125 5,000 unit PO DAILY 06/13/20 10/20/23 mcg (5,000 unit) tablet (Vitamin D3) triamcinolone acetonide 0.1 % 1 applic topical BID 07/24/21 10/20/23 topical cream omega-3 fatty acids-fish oil 340 1 cap PO BID 12/25/21 10/20/23 mg-1,000 mg capsule (Fish Oil) meclizine 25 mg tablet 25 mg PO BID PRN dizziness #30 tabs 01/24/22 10/20/23 cyclobenzaprine 5 mg tablet 5 mg PO TID PRN 05/10/22 10/20/23 aspirin 81 mg tablet,delayed See Rx Instructions .Route 11/29/22 10/20/23 release .COMPLEX #90 tabs metformin 500 mg tablet 500 mg PO BID #180 tab-caps 12/23/22 10/20/23 losartan 50 mg tablet 50 mg PO DAILY #90 tab-caps 01/02/23 10/20/23 folic acid 1 mg tablet See Rx Instructions .Route 02/26/23 10/20/23 .COMPLEX #90 tabs metoprolol succinate 50 mg See Rx Instructions .Route 02/26/23 10/20/23 tablet,extended release 24 hr .COMPLEX #90 tabs simvastatin 10 mg tablet See Rx Instructions .Route 02/26/23 10/20/23 .COMPLEX #90 tabs topiramate 50 mg tablet See Rx Instructions .Route 02/26/23 10/20/23 .COMPLEX #180 tabs upadacitinib 15 mg tablet,extended 15 mg PO DAILY 04/11/23 10/20/23 release 24 hr (Rinvoq) mometasone 200 mcg/actuation HFA 1 puff inhalation DAILY #13 grams 04/15/23 10/20/23 aerosol inhaler (Asmanex HFA) omeprazole 40 mg capsule,delayed 40 mg PO DAILY #30 caps 06/06/23 10/20/23 release hydrochlorothiazide 12.5 mg tablet 12.5 mg PO DAILY #90 tab-caps 07/28/23 10/20/23 albuterol sulfate 90 mcg/actuation 1 puff inhalation Q6H PRN 10/06/23 10/20/23 aerosol inhaler (Proventil HFA) shortness of breath or wheezing #18 grams Previous Rx's Medication Instructions Recorded meclizine 25 mg tablet 25 mg PO BID PRN dizziness #30 tabs 01/24/22 aspirin 81 mg tablet,delayed See Rx Instructions .Route 11/29/22 release .COMPLEX #90 tabs metformin 500 mg tablet 500 mg PO BID #180 tab-caps 12/23/22 losartan 50 mg tablet 50 mg PO DAILY #90 tab-caps 01/02/23 folic acid 1 mg tablet See Rx Instructions .Route 02/26/23 .COMPLEX #90 tabs metoprolol succinate 50 mg See Rx Instructions .Route 02/26/23 tablet,extended release 24 hr .COMPLEX #90 tabs simvastatin 10 mg tablet See Rx Instructions .Route 02/26/23 .COMPLEX #90 tabs topiramate 50 mg tablet See Rx Instructions .Route 02/26/23 .COMPLEX #180 tabs mometasone 200 mcg/actuation HFA 1 puff inhalation DAILY #13 grams 04/15/23 aerosol inhaler (Asmanex HFA) omeprazole 40 mg capsule,delayed 40 mg PO DAILY #30 caps 06/06/23 release hydrochlorothiazide 12.5 mg tablet 12.5 mg PO DAILY #90 tab-caps 07/28/23 albuterol sulfate 90 mcg/actuation 1 puff inhalation Q6H PRN 10/06/23 aerosol inhaler (Proventil HFA) shortness of breath or wheezing #18 grams Allergies Allergy/AdvReac Type Severity Reaction Status Date / Time celecoxib [From Celebrex] Allergy Intermediate rash Verified 10/20/23 05:40 etodolac Allergy Intermediate itching Verified 10/20/23 05:40 amoxicillin trihydrate AdvReac Intermediate vomits Verified 10/20/23 05:40 [From Augmentin] doxycycline AdvReac Intermediate VOMITS Verified 10/20/23 05:40 ibuprofen AdvReac Intermediate CHEST PAIN Verified 10/20/23 05:40 potassium clavulanate AdvReac Intermediate vomits Verified 10/20/23 05:40 [From Augmentin] cephalexin AdvReac Mild VOMITS Verified 10/20/23 05:40 lodine Allergy Severe Uncoded 10/20/23 05:40 General Stated Complaint: GenMedical NIKOLAS: 2 Review of Systems All systems reviewed & are unremarkable except as noted in HPI and below Exam Narrative Exam Narrative: 1.Const: Well-nourished, Well-developed, appearing stated age 2.Eyes: PERRL, no conjunctival injection, and symmetrical lids. 3.ENT: Atraumatic external nose and ears. Moist MM. Neck: Symmetric, trachea midline, No thyromegaly. 4.CVS: +S1/S2, No murmurs or gallops. Peripheral pulses 2+ and equal in all extremities. Brisk capillary refill in all extremities. 5.RESP: Unlabored respiratory effort. Clear to auscultation bilaterally. No wheezes rales or rhonchi 6.GI: Soft, Nontender/Nondistended, No hepatosplenomegaly. No guarding or rebound. 7.MSK: Normocephalic/Atraumatic, Extremities w/o deformity or ttp No cyanosis or clubbing, Normal movement of all extremities 8.Skin: Warm, Dry. No rashes or lesions. 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 Sensation grossly intact, no focal neurologic deficits. 10.Psych: (AAO) x3. Appropriate mood and affect Course Vital Signs Vital signs: Vital Signs Temperature 35.7 C L 10/20/23 05:20 Pulse 47 L 10/20/23 05:20 Respiratory Rate 30 H 10/20/23 05:20 Blood Pressure 176/70 H 10/20/23 05:20 Temperature 35.7 C L 10/20/23 05:20 Temperature Source Tympanic 10/20/23 05:20 Pulse 93 H 10/20/23 05:24 Pulse 37 L 10/20/23 05:51 Respiratory Rate 16 10/20/23 05:51 Respiratory Effort Short of Breath 10/20/23 05:24 Blood Pressure 135/64 10/20/23 05:51 Blood Pressure Mean 86 10/20/23 05:51 Oxygen Delivery Method Room Air 10/20/23 05:20 Oxygen Flow Rate 0 10/20/23 05:20 Lab/Test Results Lab/Test Results: Laboratory Tests Range/Units 10/20/23 05:40 WBC (4.4-10.8) 10^3/uL 9.46 RBC (3.93-5.22) 10^6/uL 4.63 Hgb (11.2-15.7) g/dL 14.1 Hct (36.0-46.0) % 43.4 MCV (80-95) fL 94 MCH (27.0-33.0) pg 30.5 MCHC (32.0-36.0) % 32.5 RDW (11.7-14.6) % 14.6 Plt Count (130-400) 10^3/uL 246 MPV (8.0-11.0) fL 10.6 Immature Gran % 0.3 Neutrophils % 59.6 Lymphocytes % 30.2 Monocytes % 8.0 Eosinophils % 1.5 Basophils % 0.4 Nucleated RBC % (0.0-0.3) % 0.0 Absolute Neutrophils (1.2-6.7) 10^3/uL 5.63 Absolute Lymphocytes (1.2-3.4) 10^3/uL 2.86 Absolute Monocytes (0.1-0.8) 10^3/uL 0.76 Absolute Eosinophils (0.0-0.7) 10^3/uL 0.14 Absolute Basophils (0.0-0.2) 10^3/uL 0.04 PT (9.1-11.1) sec 9.9 INR (0.9-1.1) 1.0 APTT (23.6-32.8) sec 23.2 L Medical Decision Making This is a very pleasant 63-year-old female with a past medical history of ankylosing spondylitis, fused spine secondary to the ankylosing spondylitis, ulcerative colitis, diabetes, high cholesterol, asthma, currently taking Rinvoq for her ankylosing spondylitis, and on metoprolol for her high blood pressure, who presents today for evaluation of fatigue. Patient states that 1 week ago she got her COVID booster, along after that she began feeling somewhat fatigued. She went to see her primary care provider few days ago which at that time demonstrated stable vital signs and a negative COVID flu and RSV test. The assumption was that she was potentially battling a mild virus at that time, and the patient continued to have mild symptoms of fatigue however last night symptoms became significantly worse. This morning she got up and took her morning medications, and moments later felt extremely short of breath and fatigued. She checked her pulse and noted that it was in the 30s. She also used a pulse oximeter which showed concern for a low oxygen level potentially in the 80s, and she came to the ER for further evaluation. She denies any syncope but does admit to lightheadedness. She denies any new medications, or trauma. She denies any fever. She denies any family history of pacemaker requirement. She denies any previous cardiac disease otherwise. Family history is positive for heart attacks. No other complaints at this time. No other modifying factors. Exam demonstrates a relatively well-appearing female, blood pressure is in the 130s to 170s systolic. Heart rate appears to be in the high 30s. Oxygenation is normal. Immediate concern for bradycardic dysrhythmia. Pacer pads were immediately placed on the patient. She is mentating well with no hypotension, and so emergent pacing was not started. EKG was performed demonstrates evidence of sinus bradycardia but does not appear to show clear evidence of a third-degree block. The decision was made to give 0.5 mg of atropine which did not change her heart rate at all. However though after administration of this her rhythm appeared to change from a fairly consistent sinus bradycardia to a transition in the QRS/P wave relation. High level of concern remains for potential variable block third-degree block at this stage. Patient remains neurologically intact with a stable blood pressure. Will hold off on transcutaneous pacing at this time. Will contact [facility] cardiology for further Cardiologic input, rehydrate evaluate for electrolyte abnormalities, monitor closely and reassess. 6:50 AM Laboratory workup demonstrates normal electrolytes, creatinine of 1.4, BUN of 31, these are slight bumps up compared to normal. Troponin normal. Bedside POCUS demonstrates no gross abnormalities. Ejection fraction minimally reduced. Discussed the case with [facility], specifically Dr. Juan Ramon Ybarra. He agrees with the assessment and plan does concur with the concern for third-degree block. Recommends transfer for further management. Does not recommend transvenous pacing here at this time as she remains without syncope or current lightheadedness while here in the ED. Patient will be transferred for further management. I have extensively reviewed the treatment plan with the patient. I have addressed all patient concerns at this time. I have also discussed the plan with the admitting physician and they agree with the current assessment and plan and have agreed to assume responsibility for the patient. All parties demonstrate verbal understanding and agreement with our assessment and plan at this time. The documentation in this chart was dictated using [employer] dictation software. Please excuse any dictation errors. At time of transfer the patient was reassessed and continued to demonstrate No signs of acute respiratory distress requiring intubation, hemodynamic instability requiring pressor support, or rapidly declining mental status. Quality:SDOH Health Related Social Needs: No Data to Display Critical Care Time Critical Care Time Critical Care Time: Yes Total Critical Care Time: 90 Attestation: Upon my evaluation, this patient had a high probability of imminent or life-threatening deterioration, which required my direct attention, intervention, and personal management. I have personally provided 45 minutes of critical care time exclusive of time spent on separately billable procedures. Time includes review of laboratory data, radiology results, discussion with consultants, and monitoring for potential decompensation. Interventions were performed as documented. PFS All Active Problems (Updated 10/20/23 @ 06:53 by Lawrence Albert DO) Third degree heart block (Acute) Primary osteoarthritis of both hips (Acute) Arthropathy in ulcerative colitis with complication (Acute) Arthralgia of hands, bilateral (Acute) Ulcerative colitis, unspecified, without complications (Acute) MÉNDEZ (nonalcoholic steatohepatitis) (Acute) Diabetes mellitus (Chronic) Chronic bilateral thoracic back pain (Acute) Inflammatory arthropathy (Acute) 12/13/21 [facility] [place] Morning joint stiffness (Acute) 12/13/21 [facility] [place] Chronic midline low back pain without sciatica (Acute) 12/13/21 [facility] [place] Pain in left hip (Acute) 12/03/21 [facility] [place] Neck pain (Acute) 12/13/21 [facility] [place] Trochanteric bursitis, left hip (Acute ~09/2021) Dr Mercado,[facility] [place] Diabetes mellitus (Chronic) Papular eczema (Acute) Folliculitis (Acute) Ulcerative pancolitis without complication (Chronic ~1993) Prediabetes (Chronic) Seborrheic keratoses (Acute) Presence of left artificial hip joint (Chronic) Primary osteoarthritis of right hip (Chronic) Bilateral - 16.0 Otitis externa (Acute 07/18/14) Urethral caruncle (Acute 08/15/17) Ulcerative enterocolitis (Acute 09/15/93) onset L sided, pancolitis last colon 2010 [facility] Humira began 04/2009, stopped due to abnl LFT, then restarted 07/2014 RADHA (stress urinary incontinence, female) (Acute 08/15/17) Peripheral venous insufficiency (Acute 08/17/10) Paresthesia (Acute 05/25/13) R lat knee for ~1 yr, ? 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 INTOLERANT Hypomagnesemia (Acute 11/23/09) Hyperlipidemia (Acute 04/15/04) simvastatin begun 2009 by GI [facility] Gastroesophageal reflux disease without esophagitis (Acute 10/26/03) Essential hypertension (Acute 11/13/01) goal <140/80 Disorder of bone and articular cartilage (Acute 07/15/96) OSTEOPENIA Chronic rhinitis (Acute 09/15/00) BMI 34.0-34.9,adult (Acute 08/07/15) Asthma (Acute 06/15/05) [employer] Ankylosing spondylitis (Acute 09/15/90) M45.2 - of cervical region Adalimumab (Humira) long-term use (Acute 09/15/09) HUMIRA adalimumab for colitis and ankylosing spondylitis, Dr Eden Reynoso; Dr Marc Chan (GI) Abnormal blood sugar (Acute 08/07/15) early DM A1c 6.5 08/07/15 Medical History (Updated 10/20/23 @ 06:53 by Lawrence Alebrt DO) Kidney stones SARS-CoV-2 positive 09/21/20-pt reports she had a positive result from a pcr done at [facility]. given pulse oximeter Dizziness (06/10/08) Closed displaced fracture of proximal phalanx of right little finger with routine healing (06/04/17) Surgical History (Updated 09/19/23 @ 16:39 by Avani Munguia RN) H/O colonoscopy 12/19/20 colonoscopy per [facility] [place] from 12/19/20 Vaginal hysterectomy (03/10/18) Colonoscopy w/ Bx (03/04/17) [facility] 09/24/22 09/18/23 Family History (Updated 04/09/22 @ 14:51 by Francisca Zaragoza RN) Mother Heart disease Hypertension Hepatitis C Father Alcohol abuse Lung cancer Heart disease Sister Heart disease Paternal Aunt Diabetes Social History (Updated 04/09/22 @ 14:50 by Francisca Zaragoza RN) Smoking/Tobacco Use Status: Never Smoking risk assessment performed?: Yes Alcohol Intake: current Alcohol Intake frequency: holidays/special occasions only Alcohol type: wine Drug use: Never Substance use type: does not use Adopted: No Caregiver/Support person: No Household members: spouse and family Housing: house Number of Children: 1 number of grandchildren: 2 Communication Needs: Corrective Lenses Education Level: high school Do you need help understanding health information?: Never current occupation: [employer] Pets and animals: No Sexually active: Yes Do you think of yourself as: straight/heterosexual Current gender identity: female What is your relationship status?: How often do you talk on the phone with friends or family?: three or more times per week How often do you get together with friends or relatives?: three or more times per week How often do you attend quaker or sabianism services?: decline to answer Do you belong to any clubs or organized social groups?: no Panel score (0-1 are the most socially isolated patients): 2 What type of physical activity do you participate in: walking and other Details: kayak Duration: 15-30 minutes/day Frequency: 3-4 times per week Bia/Jain: Restorationist Special bia needs: No Seatbelt use: always Drive intox or ride w/intox rental car ferry driver: No Working smoke detector in home: Yes Carbon monox detector in home: Yes Do you feel safe at home: Yes Do you feel safe in your relationship?: Yes Discharge Plan Disposition Patient Disposition: Transfer-Acute Inpatient Care Specific Acute Inpt Facility: [facility] Condition: Serious Discharge Details Chief Complaint: GenMedical Clinical Impression: Third degree heart block Primary Care Provider: Marcio Devlin ED Provider: Lawrence Albert Home Meds and New Rx's Prescriptions: No Action Fish Oil 340-1,000 mg capsule 1 cap PO BID meclizine 25 mg tablet 25 mg PO BID PRN (Reason: dizziness) Qty: 30 0RF Rinvoq 15 mg tablet extended release 24 hr 15 mg PO DAILY Rx Instructions: Beginning 05/02/2023 multivitamin [Daily Vitamin] 1 EACH tablet 1 ea PO DAILY calcium carbonate-vitamin D3 [Calcium 500 With D] 1 EACH tablet 2 ea PO DAILY ascorbic acid (vitamin C) 1,000 MG tablet 1,000 mg PO DAILY magnesium 250 MG tablet 250 mg PO DAILY loratadine 10 MG tablet 10 mg PO DAILY PRNQty: 30 Rx Instructions: as needed for allergies cholecalciferol (vitamin D3) [Vitamin D3] 125 mcg (5,000 unit) tablet 5,000 unit PO DAILY Patient Comments: [facility] [place] 06/11/20 [facility] triamcinolone acetonide 0.1 % cream 1 applic topical BID Rx Instructions: 07/23/21 X [address] Adam then use prn cyclobenzaprine 5 mg tablet 5 mg PO TID PRN Rx Instructions: per note dated 05/07/22 cc aspirin 81 mg tablet,delayed release (DR/EC) See Rx Instructions .ROUTE .COMPLEX Qty: 90 3RF Dose Instruction: TAKE ONE TABLET BY MOUTH EVERY DAY Rx Instructions: TAKE ONE TABLET BY MOUTH EVERY DAY metformin 500 mg tablet 500 mg PO BID Qty: 180 3RF Rx Instructions: twice daily for abnormal blood sugars; R73.09 losartan 50 mg tablet 50 mg PO DAILY Qty: 90 3RF metoprolol succinate 50 mg tablet extended release 24 hr See Rx Instructions .ROUTE .COMPLEX Qty: 90 3RF Dose Instruction: TAKE ONE TABLET BY MOUTH EVERY DAY Rx Instructions: TAKE ONE TABLET BY MOUTH EVERY DAY topiramate 50 mg tablet See Rx Instructions .ROUTE .COMPLEX Qty: 180 3RF Dose Instruction: TAKE ONE TABLET BY MOUTH TWICE A DAY Rx Instructions: TAKE ONE TABLET BY MOUTH TWICE A DAY folic acid 1 mg tablet See Rx Instructions .ROUTE .COMPLEX Qty: 90 3RF Dose Instruction: TAKE ONE TABLET BY MOUTH EVERY DAY Rx Instructions: TAKE ONE TABLET BY MOUTH EVERY DAY simvastatin 10 mg tablet See Rx Instructions .ROUTE .COMPLEX Qty: 90 3RF Dose Instruction: TAKE ONE TABLET BY MOUTH EVERY DAY Rx Instructions: TAKE ONE TABLET BY MOUTH EVERY DAY Asmanex HFA 200 mcg/actuation HFA aerosol inhaler 1 puff inhalation DAILY Qty: 13 11RF omeprazole 40 mg capsule,delayed release(DR/EC) 40 mg PO DAILY Qty: 30 11RF hydrochlorothiazide 12.5 mg tablet 12.5 mg PO DAILY Qty: 90 3RF Rx Instructions: to control BP under 140/80 albuterol sulfate [Proventil HFA] 90 mcg/actuation HFA aerosol inhaler 1 puff IH Q6H PRN (Reason: shortness of breath or wheezing) Qty: 18 3RF
[2023-10-20 06:07] LABS: ALT 28 U/L (14-59); AST 20 U/L (15-37); Albumin 3.7 g/dL (3.4-5.0); Alkaline Phosphatase 113 U/L (46-116); Anion Gap 12.2 mmol/L (3-11); BUN 31 mg/dL (7-18); Bilirubin, Total 0.3 mg/dL (0.2-1.0); CO2 23.8 mmol/L (21.0-32.0); CREATININE 1.4 mg/dL (0.55-1.02); Calcium 9.8 mg/dL (8.5-10.1); Chloride 106 mmol/L (98-107); Estimated GFR 42.54 (mL/min/1.73m2); Glucose 143 mg/dL (74-106); Potassium 3.7 mmol/L (3.5-5.1); Sodium 142 mmol/L (136-145); Total Protein 8.4 g/dL (6.4-8.2); Troponin I < 50 ng/L (< or =60)
[2023-10-20 06:12] LABS: Magnesium 1.8 mg/dL (1.8-2.4); TSH (W/Ref FT4) 0.77 uIU/mL (0.36-3.74)
--- NOTE | 2023-10-20 06:30 | DI.VRAD_ITS ---
PROCEDURE INFORMATION: Exam: XR Chest Exam date and time: 10/20/2023 6:20 AM Age: 63 years old Clinical indication: Shortness of breath; Patient HX: SOB TECHNIQUE: Imaging protocol: Radiologic exam of the chest. Views: 1 view. COMPARISON: No relevant prior studies are available for comparison. FINDINGS: Lungs: No focal consolidation seen. Pleural spaces: No large pleural effusion seen. Heart/Mediastinum: No cardiomegaly. Bones/joints: Grossly unremarkable. IMPRESSION: No acute findings to explain reported symptoms. Dictated and Authenticated by: Michelle Parks MD. Ordering:GREGORY Bravo MD
--- NOTE | 2023-10-20 08:44 | NUR.NOTE ---
Accessed pt chart to determine number of EKG orders to match to [facility] EKG's. Nursing Note:
--- NOTE | 2023-10-22 07:38 | NUR.NOTE ---
Accessed chart to determine orders for EKG and to determine whether or not one needs to be cancelled. Duplicate order cancelled. Nursing Note:
== END 2023-10-20 07:51 | disposition short-term general hospital (02) ==
PROVIDERS: Emergency Provider Student in an Organized Health Care Education/Training Program; PCP Family Medicine
DX: I44.2 Atrioventricular block, complete (principal); M45.0 Ankylosing spondylitis of multiple sites in spine; E11.9 Type 2 diabetes mellitus without complications; E78.5 Hyperlipidemia, unspecified; I10 Essential (primary) hypertension; R00.1 Bradycardia, unspecified; Z79.82 Long term (current) use of aspirin; Z79.84 Long term (current) use of oral hypoglycemic drugs
CPT/HCPCS: 80053; 93005; 96374; 99285; 71045; 83735; 84443; 84484; 85025; 85610; 85730; 93010; J0461

== ENCOUNTER 2023-10-27 08:10 | Outpatient (CLI) | payer OTHER, SELFPAY ==
--- NOTE | 2023-10-27 08:00 | RT.EKG_ITS ---
APPROVED REPORT Exam: Resting ECG Reason for Exam: evaluate rhythm Patient Location: O HR:62 bpm ECG Measurements Heart Rate 62 AXIS AZ 243 P -4 QRSd 139 QRS 30 QT 455 T 27 QTc 462 Conclusion A-V dual-paced rhythm with some inhibition...atrial and/or vent inhibition No further analysis attempted due to paced rhythm
== END 2023-10-27 08:11 | disposition home or self-care (01) ==
LOC: DI.KIM 08:13
PROVIDERS: PCP Family Medicine; Visit Provider Family Medicine
DX: Z95.0 Presence of cardiac pacemaker (principal)
CPT/HCPCS: 93010

== ENCOUNTER 2023-11-17 05:21 | Outpatient (CLI) | payer OTHER, SELFPAY ==
[2023-11-17 07:43] LABS: Abs Immature Grans 0.02 10^3/uL (0.0-0.06); Absolute Basophil Count 0.04 10^3/uL (0.0-0.2); Absolute Eosinophil Count 0.13 10^3/uL (0.0-0.7); Absolute Lymphocyte Count 1.67 10^3/uL (1.2-3.4); Absolute Monocyte Count 0.77 10^3/uL (0.1-0.8); Absolute Neutrophil Count 4.77 10^3/uL (1.2-6.7); Basophils % 0.5; ESR 8 mm/hr (0-30); Eosinophils % 1.8; HCT 41.9 % (36.0-46.0); HGB 13.8 g/dL (11.2-15.7); Immature Grans % 0.3; Lymphocytes % 22.6; MCH 30.5 pg (27.0-33.0); MCHC 32.9 % (32.0-36.0); MCV 93 fL (80-95); MPV 9.8 fL (8.0-11.0); Monocytes % 10.4; Neutrophils % 64.4; Platelet Count 219 10^3/uL (130-400); RBC 4.52 10^6/uL (3.93-5.22); RDW 13.3 % (11.7-14.6); RDW-SD 45.2 fL
[2023-11-17 08:52] LABS: ALT 19 U/L (14-59); AST 18 U/L (15-37); Albumin 3.7 g/dL (3.4-5.0); Alkaline Phosphatase 114 U/L (46-116); Bilirubin, Total 0.5 mg/dL (0.2-1.0); Cholesterol 268 mg/dL (<200); HDL Cholesterol 49 mg/dL (40-60); Magnesium 1.8 mg/dL (1.8-2.4); Triglyceride 656 mg/dL (<150)
[2023-11-17 09:15] LABS: Bilirubin, Direct 0.1 mg/dL (0.0-0.2); C-Reactive Protein 0.76 mg/dL (<or=0.5)
[2023-11-17 09:27] LABS: LDL CHOLESTEROL 75 mg/dL (<100)
== END 2023-11-17 05:22 | disposition home or self-care (01) ==
PROVIDERS: PCP Family Medicine; Visit Provider Nurse Practitioner Adult Health
DX: K51.019 Ulcerative (chronic) pancolitis with unspecified complications (principal); K51.90 Ulcerative colitis, unspecified, without complications; M45.2 Ankylosing spondylitis of cervical region; M16.0 Bilateral primary osteoarthritis of hip; M07.69 Enteropathic arthropathies, multiple sites; M25.541 Pain in joints of right hand; M25.542 Pain in joints of left hand; Z79.899 Other long term (current) drug therapy
CPT/HCPCS: 36415; 80061; 80076; 83721; 85652; 83735; 85025; 86140

== ENCOUNTER 2023-12-23 15:56 | Outpatient (REF) | payer OTHER, SELFPAY | END 2023-12-23 15:57 | disposition home or self-care (01) | LOC: LBN 15:56 | PROVIDERS: PCP Family Medicine; Visit Provider Nurse Practitioner | DX: R30.0 Dysuria (principal) | CPT/HCPCS: 87086 ==

== ENCOUNTER → 2024-02-03 19:22 | Outpatient (CLI) | payer OTHER, SELFPAY ==
--- NOTE | 2024-02-03 | DI.RAD_ITS ---
Exam(s) XR ANKLE RT COMPLETE XR FOOT RT COMPLETE EXAM: XR ANKLE RT COMPLETE CLINICAL HISTORY: S93.401A Sprain of unspecified ligament of Rt ankle. TECHNIQUE: 2D digital imaging was performed. Three views of the ankle and foot. COMPARISON: CR XR FOOT RT COMPLETE from 02/03/2024 FINDINGS: BONES: No acute fracture is present. No bony destructive lesion is seen. Heel spurs. Ossicle adjac ent to cuboid. Small ossicle adjacent to navicular. JOINTS: The ankle mortise is normally aligned. Mild tibiotalar joint space narrowing. Minimal periar ticular spurring. Mild degenerative changes of 1st MTP joint. SOFT TISSUE: Normal swelling around the ankle. IMPRESSION: Mild degenerative changes and heel spurs. DATA REPOSITORY: RADIATION DOSE DELIVERED:
== END ==
PROVIDERS: PCP Family Medicine; Visit Provider Physician Assistant Medical
DX: M19.071 Primary osteoarthritis, right ankle and foot (principal)
CPT/HCPCS: 73610; 73630

== ENCOUNTER 2024-02-25 11:51 | Outpatient (REF) | payer OTHER, SELFPAY | END 2024-02-25 11:52 | disposition home or self-care (01) | LOC: LBN 11:51 | PROVIDERS: PCP Family Medicine; Visit Provider Emergency Medicine | DX: R30.0 Dysuria; R82.89 Other abnormal findings on cytological and histological examination of urine | CPT/HCPCS: 87086 ==

== ENCOUNTER 2024-04-08 02:20 | Outpatient (CLI) | payer OTHER, SELFPAY ==
--- OUTSIDE RECORDS SUMMARY | 2024-04-08 02:24 | XMS_ITS | Data Portability ---
Author Organization [place] - [facility], [facility] [place] [address] Assessment No assessment recorded. Plan of Treatment Reminders Order Date Submit Date Provider Last Modified By Organization Details Last Modified Time Details Appointments None recorded. Lab urinalysis, dipstick 2022 023 [email or web address] [facility], [address] [place] [address], [address], [place], [address], 3 10:58:35 culture, urine + sensitivity 2022 023 [facility] (Registration ), [address] [place] [address] [facility] [place], [address], 3 14:48:56 urinalysis, microscopic 2022 023 [facility] (Registration ), [address] [place] [address] [place], [address], 3 15:34:28 Referral None recorded. Procedures None recorded. Surgeries None recorded. Imaging XR, foot, 3 or more view 2023 024 [facility] (Radiology), [address] [place] [address] [place], [address], 4 08:43:41 XR, ankle, 3 or more view 2023 024 [facility] (Radiology), [address] [place] [address] [place], [address], 4 09:39:49 Medication Orders sulfamethox azole 800 mg-trimetho prim 160 mg tablet 2022 023 [email or web address] [facility], [address] [place], [address], 4 14:10:03 Bactrim DS 800 mg-160 mg tablet 2022 023 [email or web address] r1 [facility], [address] [place], [address], 14:10:03 Patient TargetsNo targets recorded. Patient Instructions Encounter Date Encounter Id Patient Instructions Last Modified By Organization Details Last Modified Time 09/11/2023 [id number] 1. Your symptoms and your urine dip are concerning for urinary tract infection thus we have gone ahead and given you your first dose of antibiotic while here and the remaining doses were sent to your pharmacy of choice. You will take 1 tablet morning and evening for total of 7 days. If symptoms have not completely resolved in 7 days please seek reevaluation. 2. Urine culture sent for additional testing will be back in 2 days. We will communicate these results when they become available. 3. I do recommend calling the office that is doing your colonoscopy on Friday to let them know what is going on and tell them how you are feeling. They will determine whether or not they will be canceling that. [email or web address] Not available 09/11/2023 10:53:19 02/03/2024 [id number] 3 week old injury, barely able to WB and marked swelling, rec xray foot and ankle, declines crutches but accepted walking boot, advised xray of foot and ankle pending, pt warned possible occult injury which may not heal well without proper care, advised to call ortho or PMD today for follow up appointment soon in an orthopedist office. [email or web address] Not available 02/03/2024 16:04:49 Reason for Referral None Reported. Results Created Date Observation Date Name Description Value Unit Range Abnormal Flag LastModifiedBy Organization Detail LastModifiedTime 09/11/20 23 09/11/2023 URINA LYSIS color Yellow yellow Not Available [facility] (Registration ) [address] [place] [address] [place], [address], 09/11/2023 18:01:06 09/11/20 23 09/11/2023 URINA LYSIS clarity Turbid clear Not Available [facility] (Registration ) [address] [place] [address] [place], [address], 09/11/2023 18:01:06 09/11/20 23 09/11/2023 URINA LYSIS specific gravity 1.025 1.005- 1.025 normal Not Available [facility] (Registration ) [address] [place] [address] [place], [address], 09/11/2023 18:01:06 09/11/20 23 09/11/2023 URINA LYSIS pH 5.5 5-8 normal Not Available [facility] (Registration ) [address] [place] [address] [place], [address], 09/11/2023 18:01:06 09/11/20 23 09/11/2023 URINA LYSIS leukocyte esterase Large negati ve abnormal Not Available [facility] (Registration ) [address] [place] [address] [place], [address], 09/11/2023 18:01:06 09/11/20 23 09/11/2023 URINA LYSIS nitrite Positi ve negati ve abnormal Not Available [facility] (Registration ) [address] [place] [address] [place], [address], 09/11/2023 18:01:06 09/11/20 23 09/11/2023 URINA LYSIS protein 100 mg/dL negati ve abnormal Not Available [facility] (Registration ) [address] [place] [address] [place], [address], 09/11/2023 18:01:06 09/11/20 23 09/11/2023 URINA LYSIS glucose Negati ve mg/dL negati ve Not Available [facility] (Registration ) [address] [place] [address] [place], [address], 09/11/2023 18:01:06 09/11/20 23 09/11/2023 URINA LYSIS ketones Negati ve mg/dL negati ve Not Available [facility] (Registration ) [address] [place] [address] [place], [address], 09/11/2023 18:01:06 09/11/20 23 09/11/2023 URINA LYSIS urobilinogen 0.2 mg/dL up to 0.2 Not Available [facility] (Registration ) [address] [place] [address] [place], [address], 09/11/2023 18:01:06 09/11/20 23 09/11/2023 URINA LYSIS bilirubin Negati ve negati ve Not Available [facility] (Registration ) [address] [place] [address] [place], [address], 09/11/2023 18:01:06 09/11/20 23 09/11/2023 URINA LYSIS blood Modera te negati ve abnormal Not Available [facility] (Registration ) [address] [place] [address] [place], [address], 09/11/2023 18:01:06 09/11/20 23 09/11/2023 URINA LYSIS color Yellow yellow Not Available [facility] (Registration ) [address] [place] [address] [place], [address], 09/11/2023 18:06:07 09/11/20 23 09/11/2023 URINA LYSIS clarity Turbid clear Not Available [facility] (Registration ) [address] [place] [address] [place], [address], 09/11/2023 18:06:07 09/11/20 23 09/11/2023 URINA LYSIS specific gravity 1.025 1.005- 1.025 normal Not Available [facility] (Registration ) [address] [place] [address] [place], [address], 09/11/2023 18:06:07 09/11/20 23 09/11/2023 URINA LYSIS pH 5.5 5-8 normal Not Available [facility] (Registration ) [address] [place] [address] [place], [address], 09/11/2023 18:06:07 09/11/20 23 09/11/2023 URINA LYSIS leukocyte esterase Large negati ve abnormal Not Available [facility] (Registration ) [address] [place] [address] [place], [address], 09/11/2023 18:06:07 09/11/20 23 09/11/2023 URINA LYSIS nitrite Positi ve negati ve abnormal Not Available [facility] (Registration ) [address] [place] [address] [place], [address], 09/11/2023 18:06:07 09/11/20 23 09/11/2023 URINA LYSIS protein 100 mg/dL negati ve abnormal Not Available [facility] (Registration ) [address] [place] [address] [place], [address], 09/11/2023 18:06:07 09/11/20 23 09/11/2023 URINA LYSIS glucose Negati ve mg/dL negati ve Not Available [facility] (Registration ) [address] [place] [address] [place], [address], 09/11/2023 18:06:07 09/11/20 23 09/11/2023 URINA LYSIS ketones Negati ve mg/dL negati ve Not Available [facility] (Registration ) [address] [place] [address] [place], [address], 09/11/2023 18:06:07 09/11/20 23 09/11/2023 URINA LYSIS urobilinogen 0.2 mg/dL up to 0.2 Not Available [facility] (Registration ) [address] [place] [address] [place], [address], 09/11/2023 18:06:07 09/11/20 23 09/11/2023 URINA LYSIS bilirubin Negati ve negati ve Not Available [facility] (Registration ) [address] [place] [address] [place], [address], 09/11/2023 18:06:07 09/11/20 23 09/11/2023 URINA LYSIS blood Modera te negati ve abnormal Not Available [facility] (Registration ) [address] [place] [address] [place], [address], 09/11/2023 18:06:07 09/11/20 23 09/11/2023 MICRO SCOPI C FINDI NGS WBC >50 hpf 0-5 abnormal Not Available [facility] (Registration ) [address] [place] [address] [place], [address], 09/11/2023 18:06:08 09/11/20 23 09/11/2023 MICRO SCOPI C FINDI NGS C S indicated? C S Done As Ordere d Not Available [facility] (Registration ) [address] [place] [address] [place], [address], 09/11/2023 18:06:08 09/11/20 23 09/12/2023 URINE CULTU RE urine culture Not Available [address] [place], [address] 09/12/2023 11:17:32 09/11/20 23 09/12/2023 URINE CULTU RE urine culture colon ies/m L Not Available [address] [place], [address] 09/12/2023 11:17:32 09/11/20 23 09/13/2023 URINE CULTU RE urine culture Not Available [facility] (Registration ) [address] [place] [address] [place], [address], 09/13/2023 07:56:15 09/11/20 23 09/13/2023 URINE CULTU RE urine culture colon ies/m L Not Available [facility] (Registration ) [address] [place] [address] [place], [address], 09/13/2023 07:56:15 09/11/20 23 09/11/2023 urina lysis , dipst ick Leukocytes Large Not Available [facility] [address], [place], [address], 09/11/2023 10:43:31 09/11/20 23 09/11/2023 urina lysis , dipst ick Nitrite positi ve Not Available [address], [place], [address], 09/11/2023 10:43:31 09/11/20 23 09/11/2023 urina lysis , dipst ick Urobilinogen .2 Not Available [address] [address], [place], [address], 09/11/2023 10:43:31 09/11/20 23 09/11/2023 urina lysis , dipst ick Protein 100 Not Available [address] [address], [place], [address], 09/11/2023 10:43:31 09/11/20 23 09/11/2023 urina lysis , dipst ick pH 5.0 Not Available [address] [address], [place], [address], 09/11/2023 10:43:31 09/11/20 23 09/11/2023 urina lysis , dipst ick Blood Large Not Available [address] [address], [place], [address], 09/11/2023 10:43:31 09/11/20 23 09/11/2023 urina lysis , dipst ick Specific Antlers 1.020 Not Available [address] [address], [place], [address], 09/11/2023 10:43:31 09/11/20 23 09/11/2023 urina lysis , dipst ick Ketone Negati ve Not Available [address], [place], [address], 09/11/2023 10:43:31 09/11/20 23 09/11/2023 urina lysis , dipst ick Bilirubin Negati ve Not Available [address], [place], [address], 09/11/2023 10:43:31 09/11/20 23 09/11/2023 urina lysis , dipst ick Glucose Negati ve Not Available [address], [place], [address], 09/11/2023 10:43:31 09/11/20 23 09/11/2023 urina lysis , dipst ick Appearance Cloudy Not Available [address], [place], [address], 09/11/2023 10:43:31 09/11/20 23 09/11/2023 urina lysis , dipst ick Color Dark Yellow Not Available [address], [place], [address], 09/11/2023 10:43:31 09/12/20 23 09/12/2023 MAMMO , diagn ostic , bilat eral No observ ation record ed. Not Available 09/15/2023 08:33:00 09/12/20 23 09/12/2023 colon oscop y outco mes repor ting* No observ ation record ed. BARCODE Not Available 09/12/2023 18:13:48 02/04/20 24 02/03/2024 XR, foot, 3 or more view No observ ation record ed. [email or web address] [facility] (Radiology) [address] [place] [address] [place], [address], 02/17/2024 08:43:41 02/04/2002/03/2024 XR, ankle , 3 or more view No observ ation record ed. [facility] (Radiology) [address] [place] [address] [place], [address], 02/04/2024 12:36:17 Result Notes None recorded. Problems Name Status Onset Date Resolution Date Notes Provider Name and Address Organization Details Recorded Time Acute urinary tract infection Active [address], [place], [address], [facility] 09/11/2023 10:58:31 Problem Notes None recorded. Procedures Surgical History None recorded. Imaging Results Imaging Date Name Status LastModified by Organiz ation Details LastModified Time 09/12/2023 MAMMO, diagnostic, bilateral completed Information not available 09/15/2023 08:33:00 09/12/2023 colonoscopy outcomes reporting* completed BARCODE Information not available 09/12/2023 18:13:48 02/03/2024 XR, foot, 3 or more view completed [email or web address] [place] [address] (Radiology) [address] [place] [address] [place], [address], 02/17/2024 08:43:41 02/03/2024 XR, ankle, 3 or more view completed [email or web address] [place] [address] (Radiology) [address] [place] [address] [place], [address], 02/04/2024 12:36:17 Procedure Notes None recorded. Medical Equipment None Reported. Allergies Allergen ID Allergen Name Allergen Category Reaction Reaction Severity Criticality Documentation Date Start Date Code Code System Note Provider Name and Address Organization Details Recorded Time 04859 ibuprofen medicatio n chest pain Not available Not available 09/11/2023 5640 RxNorm AUNG David, [facility] 3 10:31:10 20767 cephalexi n medicatio n vomiting Not available Not available 09/11/2023 2231 RxNorm AUNG David, [facility] 3 10:31:32 42979 Augmentin medicatio n vomiting Not available Not available 09/11/2023 81243 2 RxNorm AUNG David, [facility] 3 10:31:46 56192 doxycycli ne Not available vomiting Not available Not available 09/11/2023 3640 [facility] 3 10:32:46 11068 Celebrex medicatio n rash Not available Not available 09/11/2023 98525 7 RxNorm AUNG David, [facility] 3 10:33:10 77359 etodolac medicatio n itching mild low 02/03/2024 95473 RxNorm Tongu e itchi ng Mai Bailey [facility] 4 14:09:51 Medications Name Sig Start Date Stop Date Status Note LastModified by Organization Details LastModified Time amlodipine 10 mg tablet Take 1 tablet every day by oral route. active Not Available Not Available No t Available Flovent 110 mcg/actuati on aerosol inhaler Inhale 1 puff twice a day by inhalatio n route. 02/02 completed Not Available Not Available Not Available hydrochloro thiazide 12.5 mg capsule Take 1 capsule every day by oral route. 02/02 completed Not Available Not Available Not Available Longs Adult Low Strength ASA 81 mg tablet,elysia yed release Take 1 tablet every day by oral route. active Not Available Not Available No t Available Bactrim DS 800 mg-160 mg tablet Take 1 tablet by oral route. 02/02 completed Not Available Not Available Not Available sumatriptan active Not Available Not A vailable Not Available Vitamin C active Not Available Not Michelle ilable Not Available omeprazole active Not Available Not Av ailable Not Available Fish Oil active Not Available Not Avai lable Not Available folic acid active Not Available Not Av ailable Not Available albuterol sulfate 02/02 completed Not Available Not Available Not Available simvastatin active Not Available Not A vailable Not Available Vitamin D active Not Available Not Michelle ilable Not Available metoprolol succinate 02/02 completed Not Available Not Available Not Available metformin active Not Available Not Michelle ilable Not Available topiramate active Not Available Not Av ailable Not Available Multi Vitamin active Not Available Not Available Not Available Asmanex HFA 100 mcg/actuati on aerosol inhaler Inhale 1 puff every day by inhalatio n route. active Not Available Not Available No t Available magnesium 200 mg (as magnesium oxide) tablet Take by oral route. active Not Available Not Available No t Available Rinvoq 15 mg tablet,exte nded release Take 1 tablet every day by oral route. active Not Available Not Available No t Available losartan potassium (bulk) 100mg active Not Available Not Available Not Available Vitals Date Recorded Body height Body mass index (BMI) Body weight Respiratory rate Body temperature Heart rate Oxygen saturation Oxygen saturation in Arterial blood by Pulse oximetry Systolic blood pressure Diastolic blood pressure Provider Name and Address Organization Details Last Updated DateTime 3 165.1 cm 28.1 kg/m2 99359.1 1 g 20 /min 97.8 [degF] 78 /min 99 % 99 % 147 mm[Hg] 79 mm[Hg] Ivelisse Austin MA [facility] 3 10:28:37 Date Recorded Body height Body mass index (BMI) Body weight Body temperature Oxygen saturation Oxygen saturation in Arterial blood by Pulse oximetry Heart rate Respiratory rate Systolic blood pressure Diastolic blood pressure Provider Name and Address Organization Details Last Updated DateTime 4 165.1 cm 29.5 kg/m2 80500.8 5 g 97.8 [degF] 97 % 97 % 82 /min 16 /min 135 mm[Hg] 76 mm[Hg] Mai Bailey [facility] 4 14:07:30 Social History Question Answer Notes LastModified by Organizat ion Details LastModified Time Tobacco Smoking Status Never Smoker Ivelisse Austin MA null, [facility] 09/11/2023 10:39:24 What Was The Date Of Your Most Recent Tobacco Screening? 02/03/2024 Information not available 02/03/2024 Has Tobacco Cessation Counseling Been Provided? No Information not available 02/03/2024 Do You Or Have You Ever Used Any Other Forms Of Tobacco Or Nicotine? No Information not available 02/03/2024 Sex: Unknown Functional Status None recorded. Mental Status None recorded. Family History Nothing Reported. Medical History No medical history recorded. Gynecological HistoryNo gynecological history recorded. Obstetrics History GPAL:G 0 P 0 0 0 0 Immunizations Vaccine Type Date Status Provider Name and Address Organization Details Recorded Time Tdap 03/30/2020 completed FRANCESCA Yancey, [facility] 09/11/2023 15:09:38 influenza, unspecified formulation 10/10/2022 completed FRANCESCA Yancey, [facility] 09/11/2023 15:09:46 COVID-19, mRNA, LNP-S, bivalent, PF, 10 mcg/0.2 mL 12/16/2020 completed FRANCESCA Yancey, [facility] 09/11/2023 15:09:59 COVID-19, mRNA, LNP-S, bivalent, PF, 10 mcg/0.2 mL 01/13/2021 completed FRANCESCA Yancey, [facility] 09/11/2023 15:10:02 COVID-19, mRNA, LNP-S, bivalent, PF, 10 mcg/0.2 mL 08/13/2021 completed FRANCESCA Yancey, [facility] 09/11/2023 15:10:05 COVID-19, mRNA, LNP-S, bivalent, PF, 10 mcg/0.2 mL 02/01/2022 completed FRANCESCA Yancey, [facility] 09/11/2023 15:10:09 COVID-19, mRNA, LNP-S, PF, 30 mcg/0.3 mL dose, jose angel-sucrose 10/18/2022 completed FRANCESCA Yancey, [facility] 09/11/2023 15:10:20 Pneumococcal conjugate PCV 13 02/29/2016 completed Tania Lvoing RN null, [facility] 09/11/2023 15:13:46 pneumococcal, unspecified formulation 03/15/2014 completed Tania Loving RN null, [facility] 09/11/2023 15:14:06 zoster, unspecified formulation 10/13/2019 completed Tania Loving RN null, [facility] 09/11/2023 15:14:23 zoster, unspecified formulation 02/19/2020 completed Tania Loving RN null, [facility] 09/11/2023 15:14:27 influenza, unspecified formulation 07/16/2023 completed Tania Loving RN null, [facility] 09/11/2023 15:14:41 Past Encounters Encounter ID Performer Location Encounter Start Date Encounter Closed Date Diagnosis/Indication Diagnosis SNOMED-CT Code [id number] TOM MARKS PA-C [address] [place] [address] 09/11/2023 10:04:02 09/11/2023 10:56:49 Acute urinary tract infection [id number] Alexis Argueta MD [address] [place] [address] 02/03/2024 13:49:12 02/03/2024 15:01:40 Sprain of right ankle [id number] 05 Health Concerns Section Related Observation LastModified by Organization Detai ls LastModified Time None Recorded Concern Status LastModified by Organization Details LastModified Time None Recorded Advance Directives Directive None Recorded Payers Encounter Date Sequence Insurance Name Policy Number Policy Adorno Covered Member ID Adorno Member ID Guarantor Name 09/11/2023 2 [facility] Lucien Funes [id number] Kim Funes 02/03/2024 2 [facility] Lucien Funes [id number] Kim Funes 02/03/2024 1 [employer] [id number] Kim Funes [id number] Kim Funes Notes Date Note Type Note Provider Name and Address Organization Details Recorded Time 09/11/2023 text/html HPI Notes: Kim is a 63-year-old female who presents with concerns for urinary tract infection. Prior to gi she had some pain on the left side of her kidney felt may be was like kidney stone. She has passed 1 previous stone from the right side. during this time she has had increase of frequency with urination and some pressure with urinating. She has noted in the last week or so she has noted some blood with wiping. Unsure if it is coming from the vagina or the urethra. She does however states she had a hysterectomy in 2018 due to uterine prolapse. She reports the pain in her back has improved. She has not developed a fever. She is getting up to go to the bathroom about 4 times per night. Does not typically need to get up at night. Has been going to the bathroom constantly during the day. TOM MARKS PA-C [address], [place], [address], [facility]. 09/11/2023 11:13:31 02/03/2024 text/html HPI Notes: Pt twisted ankle 3 weeks ago, a couple of times reinjured it since then. Painful to WB, has never used crutches. Alexis Argueta MD [address], [place], [address], [facility]. 02/03/2024 16:05:12 OBGyn Episode No OBEpisode recorded.
--- OUTSIDE RECORDS SUMMARY | 2024-04-08 02:25 | XMS_ITS | Encounter Summary ---
Author Organization [facility] [place] [address] Care Team Providers Care Guide Excursion Name Role Phone Marcio Devlin DO Primary Care Provider [phone] Encounter Details Date Type Department Care Team (Latest Contact Info) Description 01/20/2024 10:00 AM EDT - 01/20/2024 11:59 PM EDT Hospital Encounter [place] [address] Discharge Disposition: Home Social History Tobacco Use Types Packs/Day Years Used Date Smoking Tobacco: Never Smokeless Tobacco: Never Alcohol Use Standard Drinks/Week Comments Yes 0 (1 standard drink = 0.6 oz pure alcohol) once every couple of months or less [facility] Utilities Answer Date Recorded In the past 12 months has [employer], gas, oil, or water [employer] threatened to shut off services in your home? No 10/21/2023 Overall Financial Resource Strain (CARDIA) Answe r Date Recorded How hard is it for you to pa y for the very basics like food, housing, medical care, and heating? Not hard at all 05/03/2022 Hunger Vital Sign Answer Date Recorded Within the past 12 months, y ou worried that your food would run out before you got the money to buy more. Never true 10/21/19 24 Within the past 12 months, t he food you bought just didn't last and you didn't have money to get more. Never true 10/21/2023 PRAPARE - Transportation Answer Date Re corded In the past 12 months, has l ack of transportation kept you from medical appointments or from getting medications? No 02/2024 In the past 12 months, has l ack of transportation kept you from meetings, work, or from getting things needed for daily living? No 10/21/2023 Housing Stability Vital Sign Answer Pelon e Recorded Unable to Pay for Housing in the Last Year Not o n file 10/21/2023 In the last 12 months, how many places have you lived? 1 10/21/2023 In the last 12 months, was t here a time when you did not have a steady place to sleep or slept in a senior care (including now)? No 10/21/2023 DH IPV Inpatient Questions Answer Date Recorded Does Anyone Try to Keep You From Having Contact with Others or Doing Things Outside Your Home? no 10/20/2023 Feels Threatened by Someone no 01/2024 Feels Unsafe at Home or Work/School no 10/20/2023 Physical Signs of Abuse Present no 10/20/2023 Sex and Gender Information Value Date Recorded Sex Assigned at Female 07/21/2021 4:56 PM EDT Gender Identity Female 07/21/2021 4:56 PM EDT Sexual Orientation Straight 07/21/2021 4: 56 PM EDT documented as of this encounter Medications at Time of Discharge Medication Sig Dispensed Refills Start Date End Date atorvastatin (Lipitor) 40 mg tablet 11/24/2023 losartan (Cozaar) 100 mg tablet Take 1 tablet by mouth Daily at Noon. 11/11/2023 amLODIPine (Norvasc) 2.5 mg tablet Take 1 tablet by mouth daily. 90 each 3 11/26/2023 clindamycin (CLEOCIN T) 1 % LotionIndications:Folli culitis Apply to affected areas on abdomen twice daily for ten days. 60 mL 10/22/2023 Asmanex HFA 200 mcg/actuation HFA Aerosol Inhaler Inhale 1 puff into the lungs daily. 07/12/2023 fish oil-omega-3 fatty acids 1,000 mg Capsule Take 2 g by mouth daily. cholecalciferol, Vitamin D3, (Vitamin D3) 1,000 unit Tablet Take by mouth daily. fexofenadine (DARRYN) 180 mg Tablet Take 180 mg by mouth daily. PROAIR HFA 90 mcg/actuation HFA Aerosol Inhaler as needed. 07/20/2018 topiramate 50 mg capsule,sprinkle,ER 24hr TAKE ONE CAPSULE BY MOUTH TWICE A DAY 3 08/25/2018 aspirin 81 mg Tablet, Delayed Release (E.C.) Take 81 mg by mouth daily. SUMAtriptan (IMITREX) 20 mg/actuation [place], Non-Aerosol 1 spray as needed. 11/03/2017 metFORMIN (GLUCOPHAGE) 500 mg Tablet Take 500 mg by mouth 2 times daily. 3 11/15/2016 Calcium Carbonate-Vitamin D2 600-200 mg-unit Tab Take 1,200 mg by mouth 2 times daily. 02/21/2011 magnesium oxide (MAG-OX) 400 mg tablet Take 400 mg by mouth 2 times daily. 02/21/2011 omeprazole (PriLOSEC) 40 mg Capsule, Delayed Release(E.C.) Take 40 mg by mouth daily. multivitamin (THERAGRAN) tablet 10/15/2010 folic acid (FOLVITE) 1 mg tablet 1 MG = 1 Tablet(s), PO, Once daily 10/15/2010 ascorbic acid (VITAMIN C) 1,000 mg tablet 1000MG, PO, Once daily 10/15/2010 Rinvoq 15 mg ER 24 hr tablet TAKE 1 TABLET DAILY 30 tablet 3 10/27/2023 02/03/2024 documented as of this encounter Plan of Treatment Upcoming Encounters Date Type Department Care Team (Late st Contact Info) Description 04/19/2024 10:00 AM EDT Hospital Encounter [place] [phone] Arrived 04/29/2024 9:50 [place] [address] Luis Alfredo Velazquez MD [facility] [place] [address] 04/29/2024 9:50 AM [place] [phone] Luis Alfredo Velazquez MD [facility] [place] [address] 06/07/2024 2:30 PM EDT TH Visit (TeleHealth) Gastroenterology at [address] Dajuan Rachel MD [facility] DR GASTROENTEROLOGY DEPT. [place], [place] [id number] 07/02/2024 2:00 PM EDT Appointment [place] [address] Luis Alfredo Velazquez MD [facility] [place] [address] 07/02/2024 4:40 PM EDT Office Visit Cardiology at [place] [phone] Luis Alfredo Velazquez MD [facility] [place] [address] documented as of this encounter Procedures Procedure Name Priority Date/Time Associated Diagnosis Comments PRO PM INTERROGATION REMOTE UP TO 90 DAYS Routine 11/25/2023 5:33 PM EDT documented in this encounter Results * Cardiac Device Check - Remote (11/25/2023 5:33 PM EDT) Anatomical Region Laterality Modality Other 11/25/2023 5:33 PM EDT Jim Limon MD IMPLANTABLE CARDIAC DEVICE documented in this encounter Visit Diagnoses Not on filedocumented in this encounter Care Teams Guide Excursion Relationship Specialty Start Date End Date Marcio Devlin DO [address] [place] [id number] PCP - General Family Medicine 11/11/17 documented as of this encounter
--- OUTSIDE RECORDS SUMMARY | 2024-04-08 02:25 | XMS_ITS | Encounter Summary ---
Author Organization [facility] [place] [address] Care Team Providers Care Mortgage Loan Processing Clerk Name Role Phone Marcio Devlin DO Primary Care Provider [phone] Encounter Details Date Type Department Care Team (Late st Contact Info) Description 12/04/2023 3:30 PM EDT Office Visit Cardiology at [address] [address] Mars Green PA [facility] [place] [address] Complete heart block; Pacemaker; Pacemaker complications, initial encounter Social History Tobacco Use Types Packs/Day Years Used Date Smoking Tobacco: Never Smokeless Tobacco: Never Alcohol Use Standard Drinks/Week Comments Yes 0 (1 standard drink = 0.6 oz pure alcohol) once every couple of months or less [facility] Utilities Answer Date Recorded In the past 12 months has [employer] electric, gas, oil, or water company threatened to shut off services in your [...] place to sleep or slept in a group home (including now)? No 10/21/2023 DH IPV Inpatient [...] PM EDT documented as of this encounter Last Filed Vital Signs Vital Sign Reading Time Taken Comments Blood Pressure 153/85 12/04/2023 3:40 PM EDT Pulse 90 12/04/2023 3:40 PM EDT Temperature - - Respiratory Rate - - Oxygen Saturation 98% 12/04/2023 3:40 PM EDT Inhaled Oxygen Concentration - - Weight 80.3 kg (177 lb) 12/04/2023 3:40 PM EDT Height 166.4 cm (5' 5.5) 12/04/2023 3:40 PM EDT Body Mass Index 29.01 12/04/2023 3:40 PM EDT documented in this encounter Progress Notes * Mars Green PA - 12/04/2023 3:30 PM EDT Cardiac Electrophysiology Clinic Follow-Up Kim Funes [id number] 12/04/2023 History: Ms. Funes is a pleasant 63 yo female with a history of ulcerative colitis, ankylosingspondylitis, symptomatic complete heart block, s/p dual- chamber permanent pacemaker implantation 10/21/2023, who presented today acutely for device movement (it flipped over) in the pocket and concern for lead integrity. Subjective: - Expressed concern about pacemaker device movement: Friday night when I was sleeping I was layingon my right side. All of a sudden it started hurting, and I reached up, and it was like it had flipped up. - Device moved twice on Friday night causing pain and anxiety: I did it twice that day. And now atnight it's like I'm laying with my hand on it. - Described the device returning to position when lying flat: When I rolled back onto my back, it went down flat again. - Currently taking measures to prevent recurrence during sleep. Patient Active Problem List Diagnosis Pacemaker Overview Note: Artist Color Separation Model # Serial # Generator [employer] [id number] Atrial Lead [employer] [id number] Ventricular Lead [employer] [id number] 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 Complete heart block Overview Note: 2/5 p/w fatigue, s/p A/V sequential PPM Prediabetes Presence of left artificial hip joint Seborrheic keratoses Trochanteric bursitis of left hip Osteopenia since DXA scan in 1995 (T-score -1.7 at the spine) Overview Note: Recent DXA scan 06/02/19 CLINICAL HISTORY: follow up for osteopenia FINDINGS: T-score: -1.7, TITA: Lumbar spine, WHO diagnosis: low bone mass or osteopoenia. T-score -1.3 at the Femoral neck BMD: 0.704 g/cm2 T-score -1.1 at the total hip ......... Comparison......... Total spine- Compared to the previous, -5.3 % change from previous scan in 2015; -0.7% since baseline scan in 1995). Total hip:-compared to the previous scan, -5.3 % change from previous scan in 2016; -7.1% since baseline scan in 1995). IMPRESSION The measurements fulfill the WHO classification for low bone mass or osteopenia and they are decreasing since 2016. The rate of loss is 5% decrease over 3 years. The fracture risks are increased. High risk medication use Inflammatory arthropathy Primary osteoarthritis of right hip Prolapse of female pelvic organs Obesity (BMI 30.0-34.9) History of migraine headaches Overview Note: Markedly improved with metoprolol. Mild asthma Type 2 diabetes mellitus without complication, without long-term current use of insulin RADHA (stress urinary incontinence, female) Urethral caruncle Closed fracture of proximal phalanx of little finger Abnormal blood sugar Otitis externa Migraine Paresthesia MÉNDEZ (nonalcoholic steatohepatitis) Overview Note: Lipid disorder Overview Note: Ankylosing spondylitis Overview Note: Spondylitis and ulcerative colitis. Hypertension Overview Note: GERD (gastroesophageal reflux disease) Overview Note: Peripheral venous insufficiency Ulcerative colitis Overview Note: diagnosed in 1993 with L-sided disease Treated with sulfasalazine 3 g PO qd Colonoscopy 2001 - mild L sided disease Colonoscopy 09/19/08 (Dr. Shady Luz at [facility]) for surveillance for dysplasia. Areas of skip inflammation without ulceration in the transverse colon, descending colon, and the rectosigmoid. Upon attempt at retroflexion, a rectal mucosal tear requiring subsequent admission with 10 days antibiotics. Biopsies: normal ileum, non-specific eosinophilic infiltration of the cecum, chronic inactive colitis in the descending, rectum, sigmoid, and rectum. The transverse colon revealed moderate to severe chronic, active colitis. Ankylosing spondylitis diagnosed ~1991; also history of iritis Escalated to weekly Humira 11/2019. ADA (garcía) from 6 q 2wk to 12.7 qwk, as well as BID SSZ Colonoscopy Oct 2019: normal rectum, mod-severe inflammation and narrowing from 6-25 cm from the anus, normal remainder of colon. Path: mild active chronic colitis in ac/tc/dc/sc, severe active colitis with ulceration in proximal rectum Colonoscopy December 2020 - severe involvement of L colon, [id number] involvement of transverse and R colon. Worse compared to last exam. SSA at hepatic flexure Adalimumab level (garcía) was 12.7 Switched to Stelara ( 03/21/21, first infusion dose) d/t Lost of response to Humira. Stopped Uceris and sulfasalazine in January 2021. [place] 09/2022 - tubular featureless L colon with slightly diminished vascular pattern. Histology withmild colitis in sigmoid and inactive in descending. SSA in hep flex. Non-alcoholic fatty liver disease Hypomagnesemia Adalimumab (Humira) long-term use [employer] Overview Note: As described in 2005 anesthesia record in [facility]. 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 Past Medical History: Diagnosis Date Ankylosing spondylitis 02/21/2011 Hypertension Mild asthma 02/24/2018 Type 2 diabetes mellitus without complication, without long-term current use of insulin 02/24/2018 Ulcerative colitis diagnosed in 1993 with L-sided disease Treated with sulfasalazine 3 g PO qd Colonoscopy 2001 - mildL sided disease Colonoscopy 09/19/08 (Dr. Shady Luz at [facility]) for surveillance for dysplasia. Areas of skip inflammation without ulceration in the transverse colon, descending colon, and the rectosigmoid. Upon attempt at retroflexion, a rectal mucosal tear requiring subsequent admission with 10 d Current Outpatient Medications on File Prior to Visit Medication Sig Dispense Refill atorvastatin (Lipitor) 40 mg tablet losartan (Cozaar) 100 mg tablet Take 1 tablet by mouth Daily at Noon. amLODIPine (Norvasc) 2.5 mg tablet Take 1 tablet by mouth daily. 90 each 3 Rinvoq 15 mg ER 24 hr tablet TAKE 1 TABLET DAILY 30 tablet 3 Asmanex HFA 200 mcg/actuation HFA Aerosol Inhaler Inhale 1 puff into the lungs daily. fish oil-omega-3 fatty acids 1,000 mg Capsule Take 2 g by mouth daily. cholecalciferol, Vitamin D3, (Vitamin D3) 1,000 unit Tablet Take by mouth daily. fexofenadine (DARRYN) 180 mg Tablet Take 180 mg by mouth daily. PROAIR HFA 90 mcg/actuation HFA Aerosol Inhaler as needed. topiramate 50 mg capsule,sprinkle,ER 24hr TAKE ONE CAPSULE BY MOUTH TWICE A DAY 3 aspirin 81 mg Tablet, Delayed Release (E.C.) Take 81 mg by mouth daily. SUMAtriptan (IMITREX) 20 mg/actuation [place], Non-Aerosol 1 spray as needed. metFORMIN (GLUCOPHAGE) 500 mg Tablet Take 500 mg by mouth 2 times daily. 3 Calcium Carbonate-Vitamin D2 600-200 mg-unit Tab Take 1,200 mg by mouth 2 times daily. magnesium oxide (MAG-OX) 400 mg tablet Take 400 mg by mouth 2 times daily. omeprazole (PriLOSEC) 40 mg Capsule, Delayed Release(E.C.) Take 40 mg by mouth daily. multivitamin (THERAGRAN) tablet folic acid (FOLVITE) 1 mg tablet 1 MG = 1 Tablet(s), PO, Once daily ascorbic acid (VITAMIN C) 1,000 mg tablet 1000MG, PO, Once daily clindamycin (CLEOCIN T) 1 % Lotion Apply to affected areas on abdomen twice daily for ten days. (Patient not taking: Reported on 11/04/2023) 60 mL 0 No current facility-administered medications on file prior to visit. Allergies Allergen Reactions Ibuprofen chest pains, Patient reported Celebrex [Celecoxib] Rash Lodine [Etodolac] Itching Amoxicillin-Pot Clavulanate Nausea And Vomiting Nausea/Vomiting, patient reported Cephalexin Nausea And Vomiting Nausea/Vomiting, Patient reported Doxycycline Nausea And Vomiting Nausea/Vomiting, Patient reported Social History Socioeconomic History Marital status: Spouse name: Not on file Number of children: Not on file Years of education: Not on file Highest education level: Not on file Occupational History Not on file Tobacco Use Smoking status: Never Smokeless tobacco: Never Vaping Use Vaping Use: Never used Passive vaping exposure: Yes Substance and Sexual Activity Alcohol use: Yes Comment: once every couple of months or less Drug use: No Sexual activity: Not Currently Other Topics Concern Not on file Social History Narrative Not on file Social Determinants of Health Financial Resource Strain: Low Risk (05/03/2022) Overall Financial Resource Strain (CARDIA) Difficulty of Paying Living Expenses: Not hard at all Food Insecurity: No Food Insecurity (10/21/2023) Hunger Vital Sign Worried About Running Out of Food in the Last Year: Never true Ran Out of Food in the Last Year: Never true Transportation Needs: No Transportation Needs (10/21/2023) PRAPARE - Transportation Lack of Transportation (Medical): No Lack of Transportation (Non-Medical): No Physical Activity: Not on file Intimate Partner Violence: Not At Risk (10/20/2023) DH IPV Inpatient Questions Prevent Contact with Others: no Feels Threatened by Someone: no Feels Unsafe at Home: no Physical Signs of Abuse Present: no Housing Stability: Unknown (10/21/2023) Housing Stability Vital Sign Unable to Pay for Housing in the Last Year: Not on file Number of Places Lived in the Last Year: 1 Unstable Housing in the Last Year: No Vitals: 12/04/23 1540 BP: 153/85 Pulse: 90 SpO2: 98% Weight: 80.3 kg (177 lb) Height: 166.4 cm (5' 5.5) Physical Exam Constitutional: Appearance: Normal appearance. HENT: Head: Normocephalic and atraumatic. Cardiovascular: Rate and Rhythm: Normal rate and regular rhythm. Pulses: Normal pulses. Heart sounds: Normal heart sounds. No murmur heard. No friction rub. No gallop. Pulmonary: Effort: Pulmonary effort is normal. Breath sounds: Normal breath sounds. No wheezing, rhonchi or rales. Musculoskeletal: Cervical back: Normal range of motion. Skin: General: Skin is warm and dry. Findings: No bruising or erythema. Comments: No bleeding, ecchymosis or hematoma at device pocket Neurological: General: No focal deficit present. Mental Status: She is alert and oriented to person, place, and time. 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 Ventricular Episodes: None Atrial Pacin% Ventricular Pacin% Thoracic Impedance: --- HR Histogram: Appropriate Battery and Leads Voltage: N/A Status: 7.5 yrs Magnet Rate: 100 ppm Charge Time: --- Impedances (ohms) Sensing (mV) Thresholds HV RA RV LV RA RV LV RA RV LV ---- [phone] --- 4.5 7.2 @ 38 bpm ---- 0.70V @ 0.40ms 0.40V @ 0.40ms ---- Comments: - Pocket incision is well healed without signs or symptoms of infection - Device is functioning appropriately - Programming changes None Assessment & Plan: 1. Status-post dual-chamber permanent pacemaker implant for complete heart block, now with pacemaker function concerns following device flipping in pocket - Assessment: No evidence of pacemaker or lead damage despite reported flipping sensation. - Investigations planned: X-ray to confirm absence of lead dislodgement or twisting of leads due tophysical manipulation. - Treatment planned: Advised wearing a sports bra for additional support during sleep and avoidanceof excessive arm movements as a precautionary measure against pocket irritation or lead displacement given recent impant. - Advised Tylenol for pain management and ice application to reduce pocket discomfort. 2. Paroxysmal Atrial Tachycardia, non-sustained - Assessment: Incidental finding, asymptomatic brief episode not requiring intervention. - Reassurance provided regarding the non-concerning nature of the event 3. Follow-up Care - Plan for re-evaluation in one week considering current soreness and recent [id number]-[id number] period. - Scheduled imaging studies (X-ray) immediately following consultation to ensure leads are properlypositioned Additional Notes: Instructed patient on proper care techniques including allowing water contact during showers and continuing protective measures until follow-up reassessment confirms stability and healing YURIY Villavicencio 12/04/2023 documented in this encounter Plan of Treatment Upcoming Encounters Date Type Department Care Team (Late st Contact Info) Description 04/19/2024 10:00 AM EDT Hospital Encounter Non-Invasive [place] [phone] Arrived 04/29/2024 9:50 AM [place] [phone] Luis Alfredo Velazquez MD [facility] [place] [address] 04/29/2024 9:50 AM [place] [phone] Luis Alfredo Velzaquez MD [facility] [place] [address] 06/07/2024 2:30 PM EDT TH Visit (TeleHealth) [place] [address] Dajuan Rachel MD [facility] [place] [address] 07/02/2024 2:00 PM EDT Appointment Non-Invasive [place] [phone] Luis Alfredo Velazquez MD [facility] [place] [address] 07/02/2024 4:40 PM EDT Office Visit Cardiology at [address] [phone] Luis Alfredo Velazquez MD [facility] [place] [address] Scheduled Orders Name Type Priority Associated Diagnoses Orde r Schedule XR Chest PA & Lateral (Generic) Imaging Routine Pacemaker Complete heart block Pacemaker complications, initial encounter Expected: 12/04/2023, Expires: 06/04/2024 documented as of this encounter Visit Diagnoses Diagnosis Complete heart block Atrioventricular block, complete Pacemaker Cardiac pacemaker in situ Pacemaker complications, initial encounter documented in this encounter Care Teams Mortgage Loan Processing Clerk Relationship Specialty Start Date End Date Marcio Devlin DO [address] [place] [address] PCP - General Family Medicine 11/11/17 documented as of this encounter
--- OUTSIDE RECORDS SUMMARY | 2024-04-08 02:25 | XMS_ITS | Encounter Summary ---
Author Organization [facility] [place] [address] Care Team Providers Care Tnt Line Supervisor Name Role Phone Marcio Devlin DO Primary Care Provider [phone] Encounter Details Date Type Department Care Team (Latest Contact Info) Description 11/26/2023 Travel Social History Tobacco Use Types Packs/Day Years Used Date Smoking Tobacco: Never Smokeless Tobacco: Never Alcohol Use Standard Drinks/Week Comments Yes 0 (1 standard drink = 0.6 oz pure alcohol) once every couple of months or less [facility] Utilities Answer Date Recorded In the past 12 months has th e electric, gas, oil, or water company threatened [...] place to sleep or slept in a care home (including now)? No 10/21/2023 IPV Inpatient Questions Answer Date Recorded Does [...] PM EDT documented as of this encounter Plan of Treatment Upcoming Encounters Date Type Department Care Team (Late st Contact Info) Description 04/19/2024 10:00 AM EDT Hospital Encounter Non-[place] [address] Arrived 04/29/2024 9:50 AM EDT [place] [phone] Luis Alfredo Velazquez MD [facility] [place] [address] 04/29/2024 9:50 AM EDT [place] [phone] Luis Alfredo Velazquez MD [facility] [place] [address] 06/07/2024 2:30 PM EDT TH Visit (TeleHealth) [place] [address] Dajuan Rachel MD [facility] DR GASTROENTER[place] [address] 07/02/2024 2:00 PM EDT Appointment Non-[place] [phone] Luis Alfredo Velazquez MD [facility] [place] [address] 07/02/2024 4:40 PM EDT Office Visit Cardiology at [address] [phone] Luis Alfredo Velazquez MD [facility] [place] [address] documented as of this encounter Visit Diagnoses Not on filedocumented in this encounter Care Teams Tnt Line Supervisor Relationship Specialty Start Date End Date Marcio Devlin DO [address] [place] [address] PCP - General Family Medicine 11/11/17 documented as of this encounter
--- OUTSIDE RECORDS SUMMARY | 2024-04-08 02:25 | XMS_ITS | Encounter Summary ---
Author Organization [facility] [place] [address] Care Team Providers Care Registered Nurse Nursery Name Role Phone Marcio Devlin DO Primary Care Provider Encounter Details Date Type Department Care Team (Late st Contact Info) Description 11/19/2023 Notes [place] [phone] Rosemarie Morrow, SKIP [facility] [place] [address] Social History Tobacco Use Types Packs/Day Years Used Date Smoking Tobacco: Never Smokeless Tobacco: Never Alcohol Use Standard Drinks/Week Comments Yes 0 (1 standard drink = 0.6 oz pure alcohol) once every couple of months or less [facility] Utilities Answer Date Recorded In the past 12 months has e electric, gas, oil, or water company [...] place to sleep or slept in a detention (including now)? No 10/21/2023 [facility] IPV Inpatient [...] PM EDT documented as of this encounter Progress Notes * Rosemarie Morrow, SKIP - 11/19/2023 12:00 AM EST Ms. Funes is a 63 y.o. patient with ulcerative colitis that responded quite nicely to Stelara,but, unfortunately, her ankylosing spondylitis continue to progress. Her colonoscopy in September 2023 showed Quiescent ulcerative colitis in endoscopic remission with chronic changes. The examined portion of the ileum was normal. She was switched to Rinvoq that she started last April [address] Fong at last visit with Dr. Rachel. Recent labs on 11/17/23 showed elevated Triglycerides help of 656; Cholesterol 268. HDL 49; LDL not performed by lab. Will send copy of reports to Marcio Devlin DO to help manage this. documented in this encounter Plan of Treatment Upcoming Encounters Date Type Department Care Team (Late st Contact Info) Description 04/19/2024 10:00 AM EDT Hospital Encounter Non-Invasive Cardiology Lab [place] [phone] Arrived 04/29/2024 9:50 AM EDT Appointment MRI at [address] Luis Alfredo Velazquez MD [facility] [place] [address] 04/29/2024 9:50 AM EDT Appointment MRI at [place] [address] Luis Alfredo Velazquez MD [facility] [place] [address] 06/07/2024 2:30 PM EDT TH Visit (TeleHealth) Gastroenterology at [place] [phone] Dajuan Rachel MD [facility] [place] [address] 07/02/2024 2:00 PM EDT Appointment Non-Invasive [place] [phone] Luis Alfredo Velazquez MD [facility] [place] [address] 07/02/2024 4:40 PM EDT Office Visit Cardiology at [place] [phone] Luis Alfredo Velazquez MD [facility] [place] [address] documented as of this encounter Visit Diagnoses Not on filedocumented in this encounter Care Teams Registered Nurse Nursery Relationship Specialty Start Date End Date Marcio Devlin DO [address] [place] [address] PCP - General Family Medicine 11/11/17 documented as of this encounter
--- OUTSIDE RECORDS SUMMARY | 2024-04-08 02:25 | XMS_ITS | Encounter Summary ---
Author Organization [facility] [place] [address] Care Team Providers Care Senior Bioinformatics Scientist Name Role Phone Marcio Devlin DO Primary Care Provider [phone] Encounter Details Date Type Department Care Team (Latest Contact Info) Description 11/11/2023 11:00 AM EST TH Visit (TeleHealth) [place] [address] Rosemarie Morrow, SKIP [facility] DR GASTROENTER[place] [address] Ulcerative pancolitis with complication Social History Tobacco Use Types Packs/Day Years Used Date Smoking Tobacco: Never Smokeless Tobacco: Never Alcohol Use Standard Drinks/Week Comments Yes 0 (1 standard drink = 0.6 oz pure alcohol) once every couple of months or less [facility] Utilities Answer Date Recorded In the [...] place to sleep or slept in a [facility] (including now)? No 10/21/2023 DH IPV Inpatient [...] Progress Notes * Rosemarie Morrow, SKIP - 11/11/2023 11:00 AM EST [facility] Gastroenterology Telehealth Visit Primary care provider: Marcio Devlin, DO Other providers: Dr. Rachel Reason for visit: Ulcerative colitis f/u Problem List Patient Active Problem List Diagnosis Date Noted Complete heart block 10/20/2023 Prediabetes 05/07/2022 Presence of left artificial hip joint 05/07/2022 Seborrheic keratoses 05/07/2022 Trochanteric bursitis of left hip 11/21/2021 Osteopenia since DXA scan in 1995 (T-score -1.7 at the spine) 04/27/2020 Class: Chronic Chronic High risk medication use 06/01/2019 Inflammatory arthropathy 06/01/2019 Primary osteoarthritis of right hip 02/23/2019 Prolapse of female pelvic organs 03/10/2018 Obesity (BMI 30.0-34.9) 02/24/2018 History of migraine headaches 02/24/2018 Mild asthma 02/24/2018 Type 2 diabetes mellitus without complication, without long-term current use of insulin 02/24/2018 RADHA (stress urinary incontinence, female) 08/15/2017 Urethral caruncle 08/15/2017 Closed fracture of proximal phalanx of little finger 06/04/2017 Abnormal blood sugar 08/07/2015 Otitis externa 07/18/2014 Migraine 03/29/2014 Paresthesia 05/25/2013 MÉNDEZ (nonalcoholic steatohepatitis) 02/21/2011 Lipid disorder 02/21/2011 Ankylosing spondylitis 02/21/2011 Hypertension 02/21/2011 GERD (gastroesophageal reflux disease) 02/21/2011 Peripheral venous insufficiency 08/17/2010 Ulcerative colitis Non-alcoholic fatty liver disease 01/15/2010 Hypomagnesemia 11/23/2009 Adalimumab (Humira) long-term use 09/15/2009 DIFFICULT AIRWAY Hyperlipidemia 04/15/2004 Chronic rhinitis 09/15/2000 Disorder of bone and articular cartilage 07/15/1996 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 Detailed IBD History: Ulcerative colitis Overview Note: diagnosed in 1993 with L-sided disease Treated with sulfasalazine 3 g PO qd Colonoscopy 2001 - mild L sided disease Colonoscopy 09/19/08 (Dr. Shady Luz at [facility]) for surveillance for dysplasia. Areas of [...] iritis Escalated to weekly Humira 11/2019. ADA (cote) from 6 q 2wk to 12.7 qwk, as well as BID SSZ Colonoscopy Oct 2019: normal rectum, mod-severe inflammation and narrowing from 6-25 cm from the anus, normal remainder of colon. Path: mild active chronic colitis in ac/tc/dc/sc, severe active colitis with ulceration in proximal rectum Colonoscopy December 2020 - severe involvement of L colon, [id number] involvement of transverse and R colon. Worse compared to last exam. SSA at hepatic flexure Adalimumab level (cote) was 12.7 Switched to Stelara ( 03/21/21, first infusion dose) d/t Lost of response to Humira. Stopped Uceris and sulfasalazine in January 2021. [place] 09/2022 - tubular featureless L colon with slightly diminished vascular pattern. Histology withmild colitis in sigmoid and inactive in descending. SSA in hep flex. CURRENT IBD MEDS: Rinvoq 15 mg daily for ankylosing spondylitis( by Dr. Fong) INTERVAL HISTORY: - Last visit with Dr. Rachel 04/28/23 - Started Rinvoq 15 mg daily and stopped Stelara after her visit with Dr. Rachel for her ankylosing spondylitis as directed by Dr. Fong - Bowels are good - BM 1-2x/day, formed stool. No Bleeding. - No abdominal pain - Had Pacemaker placed 10/21/23. IBD QUESTIONNAIRE No questionnaires on file. IBD Qorus Provider Questionnaire Did you and your patient discuss your patient???s number one concern today? primary concern discussed How recently have you assessed for mucosal healing with endoscopy/imaging? within the past 6 months How recently have you assessed for mucosal healing with fecal calprotectin? never performed/I don???t know At the most recent assessment, had your patient achieved steroid-free mucosal healing? To answer YES, your patient should either have a Cote endoscopic subscore of 0-1 for UC or no more than a few aphthous ulcers in the ileum and/or colon for CD. Yes Did you discuss steroid-free mucosal healing with your patient today? No When do you next plan to assess for mucosal healing with endoscopy/imaging? longer than 12 months When do you next plan to assess for mucosal healing with fecal calprotectin? I don???t know at thistime Which medication(s) is your patient currently taking for their IBD? Other specified medication(s): Upadacitinib If your patient has NOT achieved steroid-free mucosal healing, are you making any treatment changestoday? Other specified treatment change(s): Not relevant - patient has mucosal healing What is your Provider Global Assessment (PGA) for this patient today? Normal Do you believe your patient is at high risk of going to the ED for their IBD within the next month?No 0-10 scale: 0 is least burden and 10 is highest burden to the patient. Q - Dh Ibd Disk 11/11/2023 10:52 AM EST - Filed by Patient In the last week, because of my Crohn's disease or ulcerative colitis... Abdominal pain 0 Regulating defecation 0 Interpersonal interactions 0 Education and work 0 Sleep 0 Energy 0 Emotions 0 Body image 0 Sexual function 0 Joint pain 0 Total IBD Disk Score (range: 0 - 100) 0 0-10 scale: 0 is least burden and 10 is highest burden to the patient. Review of systems as in the HPI, the rest of the review of systems were negative. Past Medical History, Social History and Family History is unchanged. Allergies/Adverse reactions Ibuprofen, Celebrex [celecoxib], Lodine [etodolac], Amoxicillin-pot clavulanate, Cephalexin, and Doxycycline No Physical Examination Performed Recent labs Admission on 10/20/2023, Discharged on 10/22/2023 Component Date Value Ref Range Status EF 10/20/2023 67 Final Glucose Lvl 10/20/2023 92 65 - 199 mg/dL Final BUN 10/20/2023 23 (H) 8 - 18 mg/dL Final Creatinine 10/20/2023 1.04 0.70 - 1.20 mg/dL Final Sodium 10/20/2023 145 135 - 145 mmol/L Final Potassium 10/20/2023 3.9 3.5 - 5.0 mmol/L Final Chloride 10/20/2023 110 (H) 98 - 107 mmol/L Final CO2 10/20/2023 20 (L) 22 - 31 mmol/L Final Anion Gap 10/20/2023 15 5 - 15 mmol/L Final Calcium 10/20/2023 9.9 8.5 - 10.5 mg/dL Final Estimated GFR 10/20/2023 61 >=60 mL/min/1.73 m?? Final Magnesium 10/20/2023 0.71 0.69 - 1.07 mmol/L Final Phosphorus 10/20/2023 1.6 (L) 2.5 - 4.5 mg/dL Final WBC 10/20/2023 6.6 4.0 - 9.5 x10(3)/mcL Final RBC 10/20/2023 4.08 4.00 - 5.21 x10(6)/mcL Final Hemoglobin 10/20/2023 12.6 11.7 - 15.5 g/dL Final Hematocrit 10/20/2023 37.4 35.7 - 45.8 % Final MCV 10/20/2023 91.7 82.6 - 94.4 fL Final MCH 10/20/2023 30.9 27.1 - 32.0 pg Final MCHC 10/20/2023 33.7 31.7 - 35.0 g/dL Final Platelets 10/20/2023 228 145 - 357 x10(3)/mcL Final RDWSD 10/20/2023 48.5 (H) 37.0 - 46.0 fL Final RDWCV 10/20/2023 14.3 (H) 11.5 - 14.1 % Final MPV 10/20/2023 10.9 7.6 - 12.9 fL Final nRBC % Auto 10/20/2023 0.0 % Final nRBC Abs Auto 10/20/2023 0.000 0.000 - 0.000 x10(3)/mcL Final Neutrophils % 10/20/2023 42.4 % Final Neutr Abs (ANC) 10/20/2023 2.79 1.70 - 6.10 x10(3)/mcL Final Lymphocytes % 10/20/2023 48.1 % Final Lymphocytes Abs 10/20/2023 3.2 0.9 - 3.2 x10(3)/mcL Final Monocytes % 10/20/2023 8.2 % Final Monocyte Abs 10/20/2023 0.5 0.3 - 0.9 x10(3)/mcL Final Eosinophils % 10/20/2023 0.8 % Final Eosinophils Abs 10/20/2023 0.0 0.0 - 0.4 x10(3)/mcL Final Basophils % 10/20/2023 0.3 % Final Basophils Abs 10/20/2023 0.0 0.0 - 0.1 x10(3)/mcL Final Immature Gran % 10/20/2023 0.20 % Final Melanie Gran Abs 10/20/2023 0.01 0.00 - 0.04 x10(3)/mcL Final POC Glucose 10/20/2023 94 65 - 199 mg/dL Final POC Glucose 10/20/2023 116 65 - 199 mg/dL Final Magnesium 10/21/2023 0.70 0.69 - 1.07 mmol/L Final Phosphorus 10/21/2023 4.5 2.5 - 4.5 mg/dL Final WBC 10/21/2023 6.8 4.0 - 9.5 x10(3)/mcL Final RBC 10/21/2023 4.06 4.00 - 5.21 x10(6)/mcL Final Hemoglobin 10/21/2023 12.6 11.7 - 15.5 g/dL Final Hematocrit 10/21/2023 38.1 35.7 - 45.8 % Final MCV 10/21/2023 93.8 82.6 - 94.4 fL Final MCH 10/21/2023 31.0 27.1 - 32.0 pg Final MCHC 10/21/2023 33.1 31.7 - 35.0 g/dL Final Platelets 10/21/2023 211 145 - 357 x10(3)/mcL Final RDWSD 10/21/2023 50.4 (H) 37.0 - 46.0 fL Final RDWCV 10/21/2023 14.5 (H) 11.5 - 14.1 % Final MPV 10/21/2023 10.9 7.6 - 12.9 fL Final nRBC % Auto 10/21/2023 0.0 % Final nRBC Abs Auto 10/21/2023 0.000 0.000 - 0.000 x10(3)/mcL Final Neutrophils % 10/21/2023 56.2 % Final Neutr Abs (ANC) 10/21/2023 3.81 1.70 - 6.10 x10(3)/mcL Final Lymphocytes % 10/21/2023 33.4 % Final Lymphocytes Abs 10/21/2023 2.3 0.9 - 3.2 x10(3)/mcL Final Monocytes % 10/21/2023 9.0 % Final Monocyte Abs 10/21/2023 0.6 0.3 - 0.9 x10(3)/mcL Final Eosinophils % 10/21/2023 0.9 % Final Eosinophils Abs 10/21/2023 0.1 0.0 - 0.4 x10(3)/mcL Final Basophils % 10/21/2023 0.4 % Final Basophils Abs 10/21/2023 0.0 0.0 - 0.1 x10(3)/mcL Final Immature Gran % 10/21/2023 0.10 % Final Melanie Gran Abs 10/21/2023 0.01 0.00 - 0.04 x10(3)/mcL Final Glucose Lvl 10/21/2023 114 65 - 199 mg/dL Final BUN 10/21/2023 23 (H) 8 - 18 mg/dL Final Creatinine 10/21/2023 1.18 0.70 - 1.20 mg/dL Final Sodium 10/21/2023 143 135 - 145 mmol/L Final Potassium 10/21/2023 4.2 3.5 - 5.0 mmol/L Final Chloride 10/21/2023 111 (H) 98 - 107 mmol/L Final CO2 10/21/2023 21 (L) 22 - 31 mmol/L Final Anion Gap 10/21/2023 11 5 - 15 mmol/L Final Calcium 10/21/2023 10.1 8.5 - 10.5 mg/dL Final Estimated GFR 10/21/2023 52 (L) >=60 mL/min/1.73 m?? Final POC Glucose 10/21/2023 107 65 - 199 mg/dL Final POC Glucose 10/21/2023 104 65 - 199 mg/dL Final POC Glucose 10/21/2023 75 65 - 199 mg/dL Final POC Glucose 10/21/2023 131 65 - 199 mg/dL Final Magnesium 10/22/2023 0.66 (L) 0.69 - 1.07 mmol/L Final Phosphorus 10/22/2023 4.3 2.5 - 4.5 mg/dL Final Glucose Lvl 10/22/2023 115 65 - 199 mg/dL Final BUN 10/22/2023 21 (H) 8 - 18 mg/dL Final Creatinine 10/22/2023 1.12 0.70 - 1.20 mg/dL Final Sodium 10/22/2023 142 135 - 145 mmol/L Final Potassium 10/22/2023 3.8 3.5 - 5.0 mmol/L Final Chloride 10/22/2023 107 98 - 107 mmol/L Final CO2 10/22/2023 23 22 - 31 mmol/L Final Anion Gap 10/22/2023 12 5 - 15 mmol/L Final Calcium 10/22/2023 9.1 8.5 - 10.5 mg/dL Final Estimated GFR 10/22/2023 56 (L) >=60 mL/min/1.73 m?? Final WBC 10/22/2023 9.2 4.0 - 9.5 x10(3)/mcL Final RBC 10/22/2023 4.11 4.00 - 5.21 x10(6)/mcL Final Hemoglobin 10/22/2023 12.9 11.7 - 15.5 g/dL Final Hematocrit 10/22/2023 38.4 35.7 - 45.8 % Final MCV 10/22/2023 93.4 82.6 - 94.4 fL Final MCH 10/22/2023 31.4 27.1 - 32.0 pg Final MCHC 10/22/2023 33.6 31.7 - 35.0 g/dL Final Platelets 10/22/2023 190 145 - 357 x10(3)/mcL Final RDWSD 10/22/2023 48.7 (H) 37.0 - 46.0 fL Final RDWCV 10/22/2023 14.1 11.5 - 14.1 % Final MPV 10/22/2023 10.5 7.6 - 12.9 fL Final nRBC % Auto 10/22/2023 0.0 % Final nRBC Abs Auto 10/22/2023 0.000 0.000 - 0.000 x10(3)/mcL Final Neutrophils % 10/22/2023 71.9 % Final Neutr Abs (ANC) 10/22/2023 6.59 (H) 1.70 - 6.10 x10(3)/mcL Final Lymphocytes % 10/22/2023 19.1 % Final Lymphocytes Abs 10/22/2023 1.8 0.9 - 3.2 x10(3)/mcL Final Monocytes % 10/22/2023 7.9 % Final Monocyte Abs 10/22/2023 0.7 0.3 - 0.9 x10(3)/mcL Final Eosinophils % 10/22/2023 0.7 % Final Eosinophils Abs 10/22/2023 0.1 0.0 - 0.4 x10(3)/mcL Final Basophils % 10/22/2023 0.2 % Final Basophils Abs 10/22/2023 0.0 0.0 - 0.1 x10(3)/mcL Final Immature Gran % 10/22/2023 0.20 % Final Melanie Gran Abs 10/22/2023 0.02 0.00 - 0.04 x10(3)/mcL Final Billing Encounter on 10/20/2023 Component Date Value Ref Range Status Ventricular rate 10/20/2023 40 BPM Final Atrial Rate 10/20/2023 65 BPM Final QRS Duration 10/20/2023 80 ms Final Q-T Interval 10/20/2023 514 ms Final QTC Calculated (Bezet) 10/20/2023 418 ms Final Calculated P Taft 10/20/2023 -12 degrees Final Calculated R Taft 10/20/2023 2 degrees Final Calculated T Taft 10/20/2023 32 degrees Final INTERPRETATION 10/20/2023 Final Value:Sinus rhythm with complete heart block and Junctional bradycardia Abnormal ECG No previous ECGs available Confirmed by MD ILA, JASE ([id number]) on 10/20/2023 10:15:01 AM Admission on 09/18/2023, Discharged on 09/18/2023 Component Date Value Ref Range Status COLONOSCOPY 09/18/2023 Final Value:[facility] Endoscopy Procedure Date: 09/18/2023 3:57 PM Patient Name: Kim Funes Date of : 1960 Age: 63 Order #: [id number] Instrument Name: [id number] Procedure: Colonoscopy Indications: Disease activity assessment of chronic ulcerative pancolitis since starting updacitinib (Rinvoq) Patient Profile: This is a 63 year old female. This patient has ulcerative pancolitis, is taking upadacitinib and is experiencing mild symptoms. Providers: Freddy Rachel MD, Sugar Ruffin, Juan Roberto MD: Marcio Devlin, Medicines: Midazolam 6.5 mg IV, Fentanyl 225 micrograms IV Complications: No immediate complications. Procedure: Pre-Anesthesia Assessment: - Prior to the procedure, a History and Physical was performed, and patient medications and allergies were reviewed. The patient is competent. The risks and benefits of the procedure and the sedation options and risks were discussed with the patient. All questions were answered and informed consent w as obtained. Patient identification and proposed procedure were verified by the physician in the pre-procedure area in the endoscopy suite. Mental Status Examination: alert and oriented. Airway Examination: normal oropharyngeal airway and neck mobility. Respiratory Examination: clear to auscultation. CV Examination: normal. ASA Grade Assessment: II - A patient with mild systemic disease. After reviewing the risks and benefits, the patient was deemed in satisfactory condition to undergo the procedure. The anesthesia plan was to use moderate sedation / analgesia (conscious sedation). Immediately prior to administration of medications, the patient was re-assessed for adequacy to receive sedatives. The heart rate, respiratory rate, oxygen saturations, blood pressure, adequacy of pulmonary ventilation, and response to care were monitored throughout the procedure. The physical status of the patient was re-assessed after the procedure. The procedure, indications, benefits, risks and alternatives were explained to the patient. Specifically discussed were potential complications including, but not limited to, bleeding , perforation, infection, missing a cancer, and adverse medication reactions. The patient was placed in the left lateral decubitus position, and a digital rectal exam was performed. The Colonoscope was inserted in the anus and under direct visualization, advanced to the terminal ileum, with identification of the appendiceal orifice and IC valve. Careful inspection was made as the colonoscope was withdrawn. The colonoscopy was performed without difficulty. The patient tolerated the procedure well. The quality of the bowel preparation was evaluated using the BBPS (Vona Bowel Preparation Scale) with scores of: Right Colon = 3 (entire mucosa seen well with no residual staining, small fragments of stool or opaque liquid), Transverse Colon = 3 (entire mucosa seen well with no residual staining, small fragments of stool or opaque liquid) and Left Colon = 3 (entire mucosa seen well with no residual staining, small fragments of stool or opaque liquid). The total BBPS score equals 9. The quality of the bowel preparation was excellent. Scope withdrawal time was 16 minutes. Findings: The perianal an d digital rectal examinations were normal. Careful light chromoendoscopy examination using BLI and then high definition white light done throughout the colon. Eight non-directed biopsies were taken with a cold forceps from each of four segments of the colon (the right colon, transverse colon, descending colon and rectosigmoid colon) for dysplasia surveillance. These biopsy specimens were sent separately to Pathology. Similar to last exam, there was a large ill-defined area of villous and granular mucosal pit pattern around the hepatic flexure and also a slightly blunted vascular pattern and tubular architecture in the left colon. Otherwise, the exam was normal without any signs of active ulcerative colitis. The terminal ileum appeared normal. Moderate Sedation: I was present during the intraservice time as documented by the sedation RN. Impression: - Quiescent ulcerative colitis in endoscopic remission with chronic changes as described above. Surveillance biopsies taken. - The examined portion of the ileum was normal. Recommendation: - Follow-up in IBD Clinic. - Continue Rinvoq. - Please have labs checked at [facility]. - Await pathology results. Attending Participation: I personally performed the entire procedure. L. Jose Rachel MD 09/18/2023 5:05:33 PM Number of Addenda: 0 Note Initiated On: 09/18/2023 3:57 PM Surgical Pathology Report 09/18/2023 Final Value:[id number] Location: 4T; EA11; A The signing pathologist has (i) examined the relevant preparation(s) for the specimen(s) and (ii) rendered or confirmed the diagnosis(es). . Surgical Pathology DIAGNOSIS A - Nondirected right colon bxs, biopsy (Multiple): - Colonic mucosa with mild architectural disarray, negative for dysplasia. B - Nondirected transverse colon bxs, biopsy (Multiple): - Colonic mucosa with mild architectural disarray, negative for dysplasia. C - Nondirected bxs descending colon, biopsy (Multiple): - Colonic mucosa, negative for diagnostic abnormality. D - Nondirected rectosigmoid colon bxs, biopsy (Multiple): - Patchy mildly active chronic colitis, negative for dysplasia. - Hyperplastic polyp. CR-PX Electronically signed by: Iker Jansen MD Verified: 09/26/2023 15:23 Pathologist Performed at: -[facility] [place] Dept. of Pathology, [facility] [place] [address] Baseball Inspector: Dg Brown MD, FCAP, CLIA Certificate: [id number] SPECIMEN(S) SUBMITTED A - nondirected right colon bxs, biopsy (Multiple) B - nondirected transverse colon bxs, biopsy (Multiple) C - nondirected bxs descending colon, biopsy (Multiple) D - nondirected rectosigmoid colon bxs, biopsy (Multiple) CLINICAL INFORMATION 63-year-old with history of Crohn's SPECIMEN PROCESSING A - Labeled/Fixative: None directed right colon BX is, formalin. Quantity/Size: Multiple, ranging from 0.3 to 0.5 cm. Tissue Description: Soft, brown tissues. Sections/Processing: Submitted in toto in 2 cassettes labeled A1-A2. B - Labeled/Fixative: Nondirected transverse colon BX, formalin. Quantity/Size: Multiple, ranging from 0.3 to 0.5 cm. Tissue Description: Soft, brown tissues. Sections/Processing: Submitted in toto in 2 cassettes labeled B1-B2. C - Labeled/Fixative: 9 directed BX is descending colon, formalin. Quantity/Size: M ultiple, ranging from 0.3 to 0.5 cm. Tissue Description: Soft, brown tissues. Sections/Processing: Submitted in toto in 2 cassettes labeled C1-C2. D - Labeled/Fixative: Nondirected rectosigmoid colon, formalin. Quantity/Size: Multiple, ranging from 0.3 to 0.5 cm. . SPECIMEN PROCESSING Tissue Description: Soft, brown tissues. Sections/Processing: Submitted in toto in 2 cassettes labeled D1-D2. SM Recent endoscopic procedures As in detailed in history above Recent relevant imaging As in detailed in history above Impression/Plan Ms. Funes is a 63 y.o. patient [...] Fong at last visit with Dr. Rachel. Her Mg was borderline low. We will repeat this today and also checked LFTs, and lipids panel. Plans: - Continue Rinvoq 15 mg daily ( by Rheumatology) - Check LFTs, Mg and lipids panel ( [facility]) - Continue lab surveillance while on Rinvoq - Colonoscopy to restage disease and for surveillance due in 2 years, Sep 2025 - Follow up with Dr. Rachel 6 months. Time Attestation: I certify spending at least 10 minutes in providing care to this patient today as reflected by the following activities: - review of the medical record in the chart - discussing of medical decision making - documenting the outcome of today's visit as above Please contact me if there are any further questions regarding the care of this patient. Renee Morrow APRN [facility] Section of Gastroenterology [place] [address] documented in this encounter Plan of Treatment Upcoming Encounters Date Type Department Care Team (Late st Contact Info) Description 04/19/2024 10:00 AM EDT Hospital Encounter Non-[place] [id number] Arrived 04/29/2024 9:50 AM EDT [place] [phone] Luis Alfredo Velazquez MD [facility] [place] [address] 04/29/2024 9:50 AM EDT Appointment MRI at [place] [address] Luis Alfredo Velazquez MD [facility] [place] [address] 06/07/2024 2:30 PM EDT TH Visit (TeleHealth) Gastroenterology at [address] Dajuan Rachel MD [facility] DR GASTROENTEROLOGY [place] [address] 07/02/2024 2:00 PM EDT Appointment Non-Invasive Cardiology Lab [address] Luis Alfredo Velazquez MD [facility] [place] [address] 07/02/2024 4:40 PM EDT Office Visit Cardiology at [place] [address] Luis Alfredo Velazquez MD [facility] [place] [address] Scheduled Orders Name Type Priority Associated Diagnoses Orde r Schedule Hepatic Function Panel Lab Routine Ulcerative pancolitis with complication Expected: 11/11/2023 (Approximate), Expires: 02/09/2024 Magnesium Lab Routine Ulcerative pancolitis with complication Expected: 11/11/2023, Expires: 05/12/2024 Lipid Panel (Reflex Direct LDL) Lab Routine Ulcerative pancolitis with complication Expected: 11/11/2023, Expires: 05/12/2024 documented as of this encounter Visit Diagnoses Diagnosis Ulcerative pancolitis with complication documented in this encounter Care Teams Senior Bioinformatics Scientist Relationship Specialty Start Date End Date Marcio Devlin DO [address] [facility] [place] [address] PCP - General Family Medicine 11/11/17 documented as of this encounter
--- OUTSIDE RECORDS SUMMARY | 2024-04-08 02:25 | XMS_ITS | Encounter Summary ---
Author Organization [facility] [place] [address] Care Team Providers Care Quill Machine Operator Name Role Phone Marcio Devlin DO Primary Care Provider [phone] Encounter Details Date Type Department Care Team (Latest Contact Info) Description 01/06/2024 Travel Social History Tobacco Use Types Packs/Day Years Used Date Smoking Tobacco: Never Smokeless Tobacco: Never Alcohol Use Standard Drinks/Week Comments Yes 0 (1 standard drink = 0.6 oz pure alcohol) once every couple of months or less [facility] Utilities Answer Date Recorded In the [...] place to sleep or slept in a halfway (including now)? No 10/21/2023 IPV Inpatient Questions [...] AM EDT Hospital Encounter [place] [address] Arrived 04/29/2024 9:50 AM [place] [phone] Luis Alfredo Velazquez MD [facility] [place] [address] 04/29/2024 9:50 [place] [address] Luis Alfredo Velazquez MD [facility] [place] [address] 06/07/2024 2:30 PM EDT TH Visit (TeleHealth) [place] [address] Dajuan Rachel MD [facility] [place] [address] 07/02/2024 2:00 PM EDT Appointment [place] [phone] Luis Alfredo Velazquez MD [facility] [place] [address] 07/02/2024 4:40 PM EDT Office Visit Cardiology at [address] [phone] Luis Alfredo Velazquez MD [facility] [place] [address] documented as of this encounter Visit Diagnoses Not on filedocumented in this encounter Care Teams Quill Machine Operator Relationship Specialty Start Date End Date Marcio Devlin DO [address] [place] [address] PCP - General Family Medicine 11/11/17 documented as of this encounter
--- OUTSIDE RECORDS SUMMARY | 2024-04-08 02:25 | XMS_ITS | Encounter Summary ---
Author Organization [facility] [place] [address] Care Team Providers Care Legal Administrative Assistant Name Role Phone Marcio Devlin DO Primary Care Provider [phone] Encounter Details Date Type Department Care Team (Latest Contact Info) Description 11/21/2023 Travel Social History Tobacco Use Types Packs/Day Years Used Date Smoking Tobacco: Never Smokeless Tobacco: Never Alcohol Use Standard Drinks/Week Comments Yes 0 (1 standard drink = 0.6 oz pure alcohol) once every couple of months or less [facility] Utilities Answer Date Recorded In [...] place to sleep or slept in a correction (including now)? No 10/21/2023 IPV Inpatient Questions [...] AM EDT Hospital Encounter Non-[place] [address] Arrived 04/29/2024 9:50 [place] [address] Luis Alfredo Velazquez MD [facility] [place] [address] 04/29/2024 9:50 [place] [address]1000 Luis Alfredo Velazquez MD [facility] [place] [address] 06/07/2024 2:30 PM EDT TH Visit (TeleHealth) [place] [address] Dajuan Rachel MD [facility] DR [place]STR[place] [address] 07/02/2024 2:00 PM EDT Appointment Non-[place]vasive [place] [address] Luis Alfredo Velazquez MD [facility] [place] [address] 07/02/2024 4:40 PM EDT Office Visit Cardiology at [address] [phone] Luis Alfredo Velazquez MD [facility] [place] [address] documented as of this encounter Visit Diagnoses Not on filedocumented in this encounter Care Teams Legal Administrative Assistant Relationship Specialty Start Date End Date Marcio Devlin DO [address] [place] [address] PCP - General Family Medicine 11/11/17 documented as of this encounter
--- OUTSIDE RECORDS SUMMARY | 2024-04-08 02:25 | XMS_ITS | Continuity of Care Document ---
Author Organization [place] [facility] [employer] [facility], [facility] Address [address] [place] [address] Assessment No assessment recorded. Plan of Treatment Reminders Order Date Submit Date Provider Last Modified By Organization Details Last Modified Time Details Appointments None record ed. Lab None record ed. Referral None record ed. Procedures None record ed. Surgeries None record ed. Imaging XR, foot, 3 or more view 024 02/03/20 24 [facility] (Radiology), [address] [place] [address] [place], [address], 4 08:43:41 XR, ankle, 3 or more view 024 02/03/20 24 [facility] (Radiology), [address] [place] [address] [place], [address], 4 09:39:49 Medication Orders None record ed. Patient TargetsNo targets recorded. Patient Instructions Encounter Date Encounter Id Patient Instructions Last Modified By Organization Details Last Modified Time 02/03/2024 [id number] 3 week old injury, barely able to WB and marked swelling, rec xray foot and ankle, declines crutches but accepted walking boot, advised xray of foot and ankle pending, pt warned possible occult injury which may not heal well without proper care, advised to call ortho or PMD today for follow up appointment soon in an orthopedist office. [email or web address] Not available 02/03/2024 16:04:49 Reason for Referral None Reported. Results Created Date Observation Date Name Description Value Unit Range Abnormal Flag LastModifiedBy Organization Detail LastModifiedTime 02/04/20 24 02/03/2024 XR, foot, 3 or more view No observ ation record ed. [email or web address] [facility] (Radiology) [address] [place] [address] , [place], [address], 02/17/2024 08:43:41 02/04/20 24 02/03/2024 XR, ankle , 3 or more view No observ ation record ed. [facility] (Radiology) [address] [place] [address] [place], [address], 02/04/2024 12:36:17 Result Notes None recorded. Problems Name Status Onset Date Resolution Date Notes Provider Name and Address Organization Details Recorded Time Acute urinary tract infection Active [address], [place], [address], [facility] 09/11/2023 10:58:31 Problem Notes None recorded. Medical Equipment None Reported. Allergies Allergen ID Allergen Name Allergen Category Reaction Reaction Severity Criticality Documentation Date Start Date Code Code System Note Provider Name and Address Organization Details Recorded Time 69395 ibuprofen medicatio n chest pain Not available Not available 09/11/2023 5640 RxNoAUNG Warren, [facility] 3 10:31:10 12398 cephalexi n medicatio n vomiting Not available Not available 09/11/2023 2231 RxAUNG Santana, [facility] 3 10:31:32 41269 Augmentin medicatio n vomiting Not available Not available 09/11/2023 93434 2 AUNG Da Silva, [facility] 3 10:31:46 21601 doxycycli ne Not available vomiting Not available Not available 09/11/2023 3640 AUNG Da Silva, [facility] 3 10:32:46 24660 Celebrex medicatio n rash Not available Not available 09/11/2023 54688 7 RxNorm Ivelisse AutsinAUNG [facility], [facility] 3 10:33:10 72077 etodolac medicatio n itching mild low 02/03/2024 60690 RxNorm Tongbishop dozier itchi germain [facility] 4 14:09:51 Medications Name Sig Start Date [...] Updated DateTime 4 165.1 cm 29.5 kg/m2 22707.8 5 g 97.8 [degF] 97 % 97 % 82 /min 16 /min 135 mm[Hg] 76 mm[Hg] Mai Bailey [facility] 4 14:07:30 Social History Question Answer Notes LastModified by Organizat ion Details LastModified Time Tobacco Smoking Status Never Smoker AUNG David, [facility] 09/11/2023 10:39:24 What Was The Date [...] Details Recorded Time Tdap 03/30/2020 completed FRANCESCA Yancey [facility] 09/11/2023 15:09:38 influenza, unspecified formulation 10/10/2022 completed FRANCESCA Yancey, [facility] 09/11/2023 15:09:46 COVID-19, mRNA, LNP-S, bivalent, PF, 10 mcg/0.2 mL 12/16/2020 FRANCESCA Quevedo, [facility] 09/11/2023 15:09:59 COVID-19, mRNA, LNP-S, bivalent, PF, 10 mcg/0.2 mL 01/13/2021 monica Loving, RN null, [facility] 09/11/2023 15:10:02 COVID-19, mRNA, LNP-S, bivalent, PF, 10 mcg/0.2 mL 08/13/2021 completed FRANCESCA Yancey, [facility] 09/11/2023 15:10:05 COVID-19, mRNA, LNP-S, bivalent, PF, 10 mcg/0.2 mL 02/01/2022 completed FRANCESCA Yancey, [facility] 09/11/2023 15:10:09 COVID-19, mRNA, LNP-S, PF, 30 mcg/0.3 mL dose, jose angel-sucrose 10/18/2022 completed FRANCESCA Yancey, [facility] 09/11/2023 15:10:20 Pneumococcal conjugate PCV 13 02/29/2016 completed FRANCESCA Yancey, [facility] 09/11/2023 15:13:46 pneumococcal, unspecified formulation 03/15/2014 completed FRANCESCA Yancey, [facility] 09/11/2023 15:14:06 zoster, unspecified formulation 10/13/2019 completed FRANCESCA Yancey, [facility] 09/11/2023 15:14:23 zoster, unspecified formulation 02/19/2020 completed FRANCESCA Yancey, [facility] 09/11/2023 15:14:27 influenza, unspecified formulation 07/16/2023 completed FRANCESCA Yancey, [facility] 09/11/2023 15:14:41 Past Encounters Encounter ID Performer Location Encounter Start Date Encounter Closed Date Diagnosis/Indication Diagnosis SNOMED-CT Code [id number] Alexis Argueta MD [address] [place] [address] 02/03/2024 13:49:12 02/03/2024 15:01:40 Sprain of right ankle [id number] 05 Health Concerns Section Related Observation LastModified by Organization Detai ls LastModified Time None Recorded Concern Status LastModified by Organization Details LastModified Time None Recorded Payers Encounter Date Sequence Insurance Name Policy Number Policy Adorno Covered Member ID Adorno Member ID Guarantor Name 02/03/2024 2 [facility] Lucien Funes [id number] Kim Covarrubias Shantel 02/03/2024 1 [facility] [id number] Kim Covarrubias Shantel [id number] Kim Covarrubias Shantel Notes Date Note Type Note Provider Name and Address Organization Details Recorded Time 02/03/2024 text/html HPI Notes: Pt twisted ankle 3 weeks ago, a couple of times reinjured it since then. Painful to WB, has never used crutches. Alexis Argueta MD [address], [place], [address], [facility]. 02/03/2024 16:05:12 OBGyn Episode No OBEpisode recorded.
--- OUTSIDE RECORDS SUMMARY | 2024-04-08 02:25 | XMS_ITS | Encounter Summary ---
Author Organization [facility] Address [facility] [place] [address] Care Team Providers Care Pediatric Psychiatrist Name Role Phone Marcio Devlin DO Primary Care Provider [phone] Encounter Details Date Type Department Care Team (Latest Contact Info) Description 01/06/2024 1:00 PM EDT Office Visit Rheumatology at [facility] [place] [address] Gabe Fong MD [facility] [place] [address] High risk medication use; Medication monitoring encounter; Ulcerative colitis without complications, unspecified location; Ankylosing spondylitis of cervical region; Primary osteoarthritis of both hips; Inflammatory arthropathy; Arthralgia of both hands Social History Tobacco Use Types Packs/Day Years Used Date Smoking Tobacco: Never Smokeless Tobacco: Never Alcohol Use Standard Drinks/Week Comments Yes 0 (1 standard drink = 0.6 oz pure alcohol) once every couple of months or less [facility] Utilities Answer Date Recorded In the [...] place to sleep or slept in a long-term (including now)? No 10/21/2023 DH IPV Inpatient [...] Sign Reading Time Taken Comments Blood Pressure 130/63 01/06/2024 12:48 PM EDT Pulse 70 01/06/2024 12:48 PM EDT Temperature 36.5 ??C (97.7 ??F) 01/06/2024 12:48 PM E DT Respiratory Rate - - Oxygen Saturation 99% 01/06/2024 12:48 PM EDT Inhaled Oxygen Concentration - - Weight 80.7 kg (178 lb) 01/06/2024 12:48 PM EDT Height - - Body Mass Index 29.17 12/04/2023 3:40 PM EDT documented in this encounter Progress Notes * Gabe Fong MD - 01/06/2024 1:00 PM EDT Rheumatology Follow-Up Note PCP: Marcio Devlin DO, Rheumatological History: 1. UC associated Ankylosing Spondylitis-currently on Stelara -Dx back in around [address] Mann and saw Dr. Reynoso for follow up. -Xray of the Lumbar spine : Ankylosis fusion of both SI joints Presenting Sx: -Initial sx of low back/SI joint pains -No peripheral joint involvement -H/o of iritis x 3 times. No recent episodes reported -Hx of erythema nodosum associated with UC MEDS: 1) Humira q1 week 2) SSZ (both on since beginning of 2010-tolerating well without ADRs) -Controlling sx well--sx have been quiescent and stable for >1 year now on her current medications -options of MTX/leflunomide may be limited by underlying Hx of MÉNDEZ. #MÉNDEZ: -S/P liver bx in 03/2010 -LFTS mildly elevated and stable. #S/P left hip replacement back in 2005 Interval History: Kim Funes is a 63 y.o. female PMHx of MÉNDEZ and UC with presenting for follow up who hasbeen maintained on Humira and Sulfasalazine since beginning of 2010 and has been doing overall verywell since with no ADRs reported or known from current medication regimen. She is doing well on Rinvoq. Joint pains have resolved. UC under good control. Recent colonoscopy with path pending but word back from GI specialist was that the it was normals Denies synovitis (swollen red or warm joints) or MS She has had no issues with thrombosis, infections, night sweats weight loss no financial difficulties getting her medications. 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 Comments are only made for responses that are changed from previous, not discussed in HPI, or otherwise require clarification. Systemic Comments Generalized pain Fatigue/tiredness Fevers Chills Night sweats Recent weight loss Recent Weight gain Head and neck Headaches Neck pain/stiffness Lymphadenopathy Ocular erythema Xerophthalmia Gritty eyes Eye pain Photophobia Oral sores Xerostomia Jaw claudication Cardiopulmonary Chest discomfort Dyspnea Cough Hemoptysis Gastrointestinal Dysphagia Heartburn Nausea Emesis Abdominal pain Hematochezia Diarrhea Constipation Genitourinary Hematuria Dysuria Musculoskeletal Muscle weakness Myalgia Shoulder pain Raynaud's Neuropsychiatric Paresthesia Dysesthesia Dizziness/vertigo i Anxiety Depression Cognitive problems Initial insomnia Night awakenings Nonrestorative sleep Dermatologic Xerosis cutis Photosensitivity Rash Patient's medications, allergies, past medical, surgical, social and family histories were reviewedand updated Patient's medications, allergies, past medical, surgical, social and family histories were reviewedand updated as appropriate. Physical Exam: BP 130/63 Pulse 70 Temp 36.5 ??C (97.7 ??F) (Temporal) Wt 80.7 kg (178 lb) SpO2 99% BMI 29.17 kg/m?? General: NAD Neck: Reduced ROM per patient unchanged Cardiovascular: RR, (-)murmurs, rubs, or gallops. Lungs: Clear to auscultation bilaterally. (-)R/R/W Abdomen: Soft, non tender, non distended, + bowel sounds, Neuro: Alert and oriented x3. Cranial nerves III through XII grossly intact. Skin: (-)ulcers, (-)rash Vascular: Pulses are equal in all extremities. MSK Back: Non tender over the spine and costovertebral angles bilaterally. (-)Radha Shober 13.5 Mid back pain - l resolved Extremities Shoulders: FROM, non-tender to palpation Elbows:FROM, (-)pain, (-)nodules Wrists: FROM, no swelling, non-tender Hands: No synovitis, no MCP compression tenderness, full claw and fist Hips: Last visit FROM, (-) radha, left hip sligh soft tissue swellin outer left hip. TTP, not warm.Rom within normal limits Knees: (-)effusions, non-tender ROM Ankles: FROM, non-tender, no swelling Feet: no MTP compression tenderness Spine, shoulders, elbows, wrists, fingers, hips, knees and ankles; no active swelling, tenderness or synovitis at any joint. No soft tissue nodules. Spine, shoulders, elbows, wrists, fingers, hips, knees and ankles; no active swelling, tenderness or synovitis at any joint. No soft tissue nodules. Imaging: Ostepneia on Dexa IMPRESSION The measurements satisfied the WHO classification for low bone mass or osteopenia. There is no significant change since 2011. Assessment and plan: Kim Funes is a 63 y.o. female PMHx of MÉNDEZ and UC with presenting for follow up who hasbeen maintained on Humira and Sulfasalazine since beginning of 2010 and has been overall been well controlled with known or reported ADRs from medications. Ulcerative colitis related with ankylosing spondylitis- -Disease activity cerebral reported as in remission - UC quiet-status post colonoscopy October -Ankylosing spondylitis - Stable in remission- High risk medication FDA review of a large, randomized safety clinical trial, we have concluded that there is an increased risk of serious infections, heart-related events such as heart attack or stroke, cancer, blood clots, and , Laboratory monitoring required every 3 to 4 months CBC LFTs creatinine lipid profile every 6 monthsprescreening for HIV TB and hepatitis Orders Placed This Encounter Procedures CBC (with Diff) Creatinine Hepatic Function Panel Return in about 3 months (around 04/06/2024) for In Person. > 48minutes total with phone calls and documentation discussing documented in this encounter Plan of Treatment Upcoming Encounters Date Type Department Care Team (Late st Contact Info) Description 04/19/2024 10:00 AM EDT Hospital Encounter Non-Invasive [place] [address] Arrived 04/29/2024 9:50 [place] [address] Luis Alfredo Velazquez MD [facility] [place] [address] 04/29/2024 9:50 [place] [address] Luis Alfredo Velazquez MD [facility] [place] [address] 06/07/2024 2:30 PM EDT TH Visit (TeleHealth) [place] [address] Dajuan Rachel MD [facility] DR GASTROENTEROLOGY DEPT. [place], [place] [id number] 07/02/2024 2:00 PM EDT Appointment Non-Invasive [place] [address] Luis Alfredo Velazquez MD [facility] [place] [address] 07/02/2024 4:40 PM EDT Office Visit Cardiology at [address] [phone] Luis Alfredo Velazquez MD [facility] [place] [address] Scheduled Orders Name Type Priority Associated Diagnoses Orde r Schedule CBC (with Diff) Lab Routine High risk medication use Medication monitoring encounter Ulcerative colitis without complications, unspecified location Ankylosing spondylitis of cervical region Primary osteoarthritis of both hips Inflammatory arthropathy Arthralgia of both hands Every 3 months for 4 Occurrences starting 01/06/2024 until 01/05/2025 Creatinine Lab Routine High risk medication use Medication monitoring encounter Ulcerative colitis without complications, unspecified location Ankylosing spondylitis of cervical region Primary osteoarthritis of both hips Inflammatory arthropathy Arthralgia of both hands Every 3 months for 4 Occurrences starting 01/06/2024 until 07/07/2024 Hepatic Function Panel Lab Routine High risk medication use Medication monitoring encounter Ulcerative colitis without complications, unspecified location Ankylosing spondylitis of cervical region Primary osteoarthritis of both hips Inflammatory arthropathy Arthralgia of both hands Every 3 months for 4 Occurrences starting 01/06/2024 until 01/05/2025 documented as of this encounter Visit Diagnoses Diagnosis High risk medication use Encounter for long-term (current) use of other medications Medication monitoring encounter Encounter for therapeutic drug monitoring Ulcerative colitis without complications, unspecified location Ankylosing spondylitis of cervical region Ankylosing spondylitis Primary osteoarthritis of both hips Primary localized osteoarthrosis, pelvic region and thigh Inflammatory arthropathy Arthropathy, unspecified, site unspecified Arthralgia of both hands documented in this encounter Care Teams Pediatric Psychiatrist Relationship Specialty Start Date End Date Marcio Devlin DO [address] [place] [address] PCP - General Family Medicine 11/11/17 documented as of this encounter
--- OUTSIDE RECORDS SUMMARY | 2024-04-08 02:25 | XMS_ITS | Encounter Summary ---
Author Organization [facility] [place] [address] Care Team Providers Care Herb Counselor Name Role Phone Marcio Devlin DO Primary Care Provider [phone] Encounter Details Date Type Department Care Team (Latest Contact Info) Description 01/04/2024 Travel Social History Tobacco Use Types Packs/Day Years Used Date Smoking Tobacco: Never Smokeless Tobacco: Never Alcohol Use Standard Drinks/Week Comments Yes 0 (1 standard drink = 0.6 oz pure alcohol) once every couple of months or less [facility] Utilities Answer Date Recorded In the [...] place to sleep or slept in a snf (including now)? No 10/21/2023 IPV Inpatient Questions [...] AM EDT Hospital Encounter Non-[place] [address] Arrived 04/29/2024 9:50 AM [place] [address] Luis Alfredo Velazquez MD [facility] [place] [address] 04/29/2024 9:50 AM [place] [address] Luis Alfredo Velazquez MD [facility] [place] [address] 06/07/2024 2:30 PM EDT TH Visit (TeleHealth) [place] [address] Dajuan Rachel MD [facility] [place] [address] 07/02/2024 2:00 PM EDT Appointment Non-[place] [address] Luis Alfredo Velazquez MD [facility] [place] [address] 07/02/2024 4:40 PM EDT Office Visit Cardiology at [address] [phone] Luis Alfredo Velazquez MD [facility] [place] [address] documented as of this encounter Visit Diagnoses Not on filedocumented in this encounter Care Teams Herb Counselor Relationship Specialty Start Date End Date Marcio Devlin DO [address] [place] [address] PCP - General Family Medicine 11/11/17 documented as of this encounter
--- OUTSIDE RECORDS SUMMARY | 2024-04-08 02:25 | XMS_ITS | Encounter Summary ---
Author Organization [facility] [place] [address] Care Team Providers Care Felt Machine Mechanic Name Role Phone Marcio Devlin DO Primary Care Provider [phone] Reason for Referral * Diagnostic Test (Routine) - Authorized Specialty Diagnoses / Procedures Referred By Missy escalera Referred To Contact Radiology Diagnoses Complete heart block Procedures MRI Cardiac Morphology Function wwo Contrast Leonidas Velazquez MD [facility] [place] [address] [facility] [place] [address] Referral ID Status Reason Start Date Expiration Date Visits Requested Visits Authorized [id number] Authorized Specialty Service Requested 11/26/2023 05/28/2025 1 1 * Diagnostic Test (Routine) - New Request Specialty Diagnoses / Procedures Referred By Missy escalera Referred To Contact Cardiology Diagnoses Complete heart block Procedures Echocardiogram Transthoracic Leonidas Velazquez MD [facility] [place] [place] [address] [facility] [place] [address] Referral ID Status Reason Start Date Expiration Date Visits Requested Visits Authorized [id number] New Request Specialty Service Requested 11/26/2023 11/25/2024 1 1 Encounter Details Date Type Department Care Team (Late st Contact Info) Description 11/26/2023 4:20 PM EDT Office Visit Cardiology at [address] [address] Leonidas Velazquez MD [facility] [place] [address] Complete heart block; Pacemaker; Other hyperlipidemia; Primary hypertension Social History Tobacco Use Types Packs/Day Years Used Date Smoking Tobacco: Never Smokeless Tobacco: Never Alcohol Use Standard Drinks/Week Comments Yes 0 (1 standard drink = 0.6 oz pure alcohol) once every couple of months or less [facility] Utilities Answer Date Recorded In the past 12 months has th e [employer], gas, oil, or water [employer] threatened to shut off services in your [...] place to sleep or slept in a long term (including now)? No 10/21/2023 DH IPV Inpatient [...] Sign Reading Time Taken Comments Blood Pressure 179/84 11/26/2023 4:05 PM EDT Pulse 79 11/26/2023 4:05 PM EDT Temperature - - Respiratory Rate - - Oxygen Saturation 100% 11/26/2023 4:05 PM EDT Inhaled Oxygen Concentration - - Weight 80.5 kg (177 lb 8 oz) 11/26/2023 4:05 PM EDT Height 166.4 cm (5' 5.5) 11/26/2023 4:05 PM EDT Body Mass Index 29.09 11/26/2023 4:05 PM EDT documented in this encounter Patient Instructions * Patient Instructions* Leonidas Velazquez MD - 11/26/2023 4:20 PM EDT Start amlodipine 2.5 mg daily for blood pressure Goal is < 125/75 mm Hg at all times Continue new cholesterol pill Follow up with electrophysiology in January We will order either an MRI or PET scan to find a reason for the heart block Follow up in six months with echocardiogram documented in this encounter Progress Notes * Leonidas Velazquez MD - 11/26/2023 4:20 PM EDT Images from the original note were not included. [facility] [place] [address] Cardiology Clinic Note Patient Name: Kim Funes : 1960 Visit Context: 63 y.o. female w/ PMH of ulcerative colitis, ankylosing spondylitis, pre diabetes, HTN and HLD who [place] [facility] [place] bradycardia in the setting of complete heart block, s/p PPM. Visit Summary: Start amlodipine 2.5 mg daily for blood pressure Goal is < 125/75 mm Hg at all times Continue new cholesterol pill Follow up with electrophysiology in January Cardiac MRI in one month Follow up in six months with echocardiogram Assessment and Plan: Patient Active Problem List Diagnosis Complete heart block Overview Note: 10/20 p/w fatigue, s/p A/V sequential PPM Assessment & Plan Note: We will consider imaging for infiltrative/inflammatory disease. She denies any family history of sudden cardiac . In one survey of ankylosing spondylitis patient's 1 of 210 had complete heart block ([email or web address]). Having said she will still have some inflammatory changes from her permanent pacemaker. I will inquire with her images whether they feel cardiac MRI would be of sufficient quality if not we will proceed with a PET scan in 1-2 months. Hypertension Overview Note: Assessment & Plan Note: She was previously on metoprolol succinate 50 mg daily. BP is markedly elevated in clinic today. Wewill start amlodipine 2.5 mg daily. This can be uptitrated by PCP. Goal blood pressure < 125/75 mm Hg at all times. Hyperlipidemia Assessment & Plan Note: Simvastatin was replaced by atorvastatin recently. Her PCP will follow-up on her lipid panel. Pacemaker Overview Note: [employer] Therapist Model # Serial # Generator [employer] [id number] Atrial Lead [employer] [id number] Ventricular Lead [employer] [id number] 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 Assessment & Plan Note: This will be followed by electrophysiology. I will order a repeat limited transthoracic echocardiogram prior to our next visit. Prediabetes Presence of left artificial hip joint [...] % change from previous scan in 2015; -7.1% since baseline scan in 1995). IMPRESSION [...] spondylitis Overview Note: Spondylitis and ulcerative colitis. GERD (gastroesophageal reflux disease) Overview Note: Peripheral venous insufficiency Ulcerative colitis Overview Note: diagnosed in 1993 with L-sided disease Treated with sulfasalazine 3 g PO qd Colonoscopy 2001 - mild L sided disease Colonoscopy 09/19/08 (Dr. Shady Luz at [facility]) for surveillance for dysplasia. [...] iritis Escalated to weekly Humira 11/2019. ADA ([place]) from 6 q 2wk to 12.7 qwk, as well as BID SSZ Colonoscopy Oct 2019: normal rectum, mod-severe inflammation and narrowing from 6-25 cm from the anus, normal remainder of colon. Path: mild active chronic colitis in ac/tc/dc/sc, severe active colitis with ulceration in proximal rectum Colonoscopy December 2020 - severe involvement of L colon, [id number] involvement of transverse and R colon. Worse compared to last exam. SSA at hepatic flexure Adalimumab level ([place]) was 12.7 Switched to Stelara ( 03/21/21, first infusion dose) d/t Lost of response to Humira. Stopped Uceris and sulfasalazine in January 2021. [place] 09/2022 - tubular featureless L colon with slightly diminished vascular pattern. Histology withmild colitis in sigmoid and inactive in descending. SSA in hep flex. 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 She is accompanied by her in clinic today. 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 She lives with her son and grandson. She early October and had lightheadedness shortness of breath and leg weakness. This reportedly been going on for a couple of weeks on and off. She received a COVID-vaccine on Friday. Over the weekend she became increasingly more fatigued. On Friday she had very weak legs. Initially this was thought to be a virus after she called her PCP as many of the staff and students at the [employer] had respiratory and gastrointestinal illnesses. On Friday she was unable to walk up the stairs and then on Friday could not even walk around the house. She ultimately went to the ED where she was found to have a complete heart block. She underwent dual- chamber permanent pacemaker. Since going home she has some left collar pain but this seems to be getting. Her. She also has someshortness of breath but also seems to be improving. She denies any family history of sudden cardiacdeath. 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 [employer] - Activity level: no trouble going up and down basement stairs - Tobacco: none - EtOH: very rare - Other: no MJ Family Hx: - Mother: at 67 of hep C, mild heart attack - Father: at 72, lung cancer - Sibilings: sister with [place] at age 64 - Children: daughter without heart disease Objective: Meds: Current Outpatient Medications Medication Instructions amLODIPine (NORVASC) 2.5 mg, Oral, DAILY ascorbic acid (VITAMIN C) 1,000 mg tablet 1000MG, PO, Once daily Asmanex HFA 200 mcg/actuation HFA Aerosol Inhaler 1 puff, Inhalation, DAILY aspirin EC 81 mg, Oral, DAILY atorvastatin (Lipitor) 40 mg tablet Calcium Carbonate-Vitamin D2 600-200 mg-unit Tab 1,200 mg, 2 TIMES DAILY cholecalciferol, Vitamin D3, (Vitamin D3) 1,000 unit Tablet Oral, DAILY clindamycin (CLEOCIN T) 1 % Lotion Apply to affected areas on abdomen twice daily for ten days. fexofenadine (DARRYN) 180 mg, Oral, DAILY fish oil-omega-3 fatty acids (FISH OIL) 2 g, Oral, DAILY folic acid (FOLVITE) 1 mg tablet 1 MG = 1 Tablet(s), PO, Once daily losartan (Cozaar) 100 mg tablet 1 tablet, Oral, DAILY AT NOON magnesium oxide (MAG-OX) 400 mg, 2 TIMES DAILY metFORMIN (GLUCOPHAGE) 500 mg, Oral, 2 TIMES DAILY multivitamin (THERAGRAN) tablet omeprazole (PRILOSEC) 40 mg, DAILY PROAIR HFA 90 mcg/actuation HFA Aerosol Inhaler PRN Rinvoq 15 mg, Oral, DAILY SUMAtriptan (IMITREX) 20 mg/actuation [place], Non-Aerosol 1 spray, PRN topiramate 50 mg capsule,sprinkle,ER 24hr TAKE ONE CAPSULE BY MOUTH TWICE A DAY Vitals: BP 179/84 Pulse 79 Ht 166.4 cm (5' 5.5) Wt 80.5 kg (177 lb 8 oz) SpO2 100% BMI 29.09 kg/m?? Examination: CONST: Pleasant, Well-appearing NEURO: Oriented x3; no obvious deficits PSYCH: NAD, Normal mood HEENT: Non-icteric sclera MSK: Ambulates w/o difficulty CV: JVP not elevated; RRR, normal S1+S2, no murmurs PULM: CTAB GI: Soft, non-tender, non-distended EXTREMITIES: No lower extremity edema Laboratory: Lab Results Component Value Date WBC 9.2 10/22/2023 HGB 12.9 10/22/2023 HCT 38.4 10/22/2023 MCV 93.4 10/22/2023 PLATELET 190 10/22/2023 Lab Results Component Value Date NA 142 10/22/2023 K 3.8 10/22/2023 CL 107 10/22/2023 CO2 23 10/22/2023 BUN 21 (H) 10/22/2023 CREATININE 1.12 10/22/2023 GLUCOSE 115 10/22/2023 CALCIUM 9.1 10/22/2023 ESTGFR 56 (L) 10/22/2023 Lab Results Component Value Date ALT 26 06/27/2023 AST 23 06/27/2023 ALKPHOS 135 (H) 06/27/2023 BILITOT 0.3 06/27/2023 BILIDIR 0.1 02/22/2022 ALBUMIN 3.6 06/27/2023 PROT 8.2 06/27/2023 Lab Results Component Value Date CHLPL 190 06/27/2023 HDL 53 06/27/2023 CHOLHDL 3.5 12/13/2021 TRIG 208 (H) 06/27/2023 LDLCHOL 96 06/27/2023 EKG: Diagnostic Studies: 11/08 Left ventricular size and systolic function is normal. The left ventricular ejection fraction is 67% by Elliott's biplane. There are no segmental wall motion abnormalities. Right ventricular systolic function is normal. No significant valvular disease. No prior studies for comparison. I have personally reviewed the above ECG & imaging studies Leonidas Velazquez MD, MS, FACC Attending Paint Stripper [facility] [employer] Trimmer [facility] documented in this encounter Miscellaneous Notes * Assessment & Plan Note - Leonidas Velazquez MD - 11/26/2023 4:44 PM EDT Associated Problem(s): Hyperlipidemia Simvastatin was replaced by atorvastatin recently. Her PCP will follow-up on her lipid panel. * Assessment & Plan Note - Leonidas Velazquez MD - 11/26/2023 4:39 PM EDT Associated Problem(s): Pacemaker This will be followed by electrophysiology. I will order a repeat limited transthoracic echocardiogram prior to our next visit. * Assessment & Plan Note - Leonidas Velazquez MD - 11/26/2023 4:38 PM EDT Associated Problem(s): Hypertension She was previously on metoprolol succinate 50 mg daily. BP is markedly elevated in clinic today. Wewill start amlodipine 2.5 mg daily. This can be uptitrated by PCP. Goal blood pressure < 125/75 mm Hg at all times. * Assessment & Plan Note - Leonidas Velazquez MD - 11/26/2023 4:36 PM EDT Associated Problem(s): Complete heart block We will consider imaging for infiltrative/inflammatory disease. She denies any family history of sudden cardiac . In one survey of ankylosing spondylitis patient's 1 of 210 had complete heart block ([email or web address]). Having said she will still have some inflammatory changes from her permanent pacemaker. I will inquire with her images whether they feel cardiac MRI would be of sufficient quality if not we will proceed with a PET scan in 1-2 months. * Addendum Note - Leonidas Velazquez MD - 11/26/2023 4:20 PM EDTAddended by: LEONIDAS VELAZQUEZ on: 11/26/2023 04:56 PM Modules accepted: Orders documented in this encounter Plan of Treatment Upcoming Encounters Date Type Department Care Team (Late st Contact Info) Description 04/19/2024 10:00 AM EDT Hospital Encounter Non-Invasive [place] [phone] Arrived 04/29/2024 9:50 AM EDT Appointment MRI at [address] Leonidas Velazquez MD [facility] [place] [address] 04/29/2024 9:50 AM EDT Appointment MRI at [place] [phone] Leonidas Velazquez MD [facility] [place] [address] 06/07/2024 2:30 PM EDT TH Visit (TeleHealth) Gastroenterology at [place] [phone] Dajuan Rachel MD [facility] [place] [address] 07/02/2024 2:00 PM EDT Appointment Non-Invasive [place] [phone] Leonidas Velazquez MD [facility] [place] [address] 07/02/2024 4:40 PM EDT Office Visit Cardiology at [place] [phone] Leonidas Velazquez MD [facility] [place] [address] Scheduled Orders Name Type Priority Associated Diagnoses Order Schedule Echocardiogram Transthoracic Echocardiography Routine Complete heart block Expected: 04/27/2024, Expires: 11/25/2024 MRI Cardiac Morphology Function wwo Contrast Imaging Routine Complete heart block Expected: 02/26/2024, Expires: 05/16/2024 documented as of this encounter Visit Diagnoses Diagnosis Complete heart block Atrioventricular block, complete Pacemaker Cardiac pacemaker in situ Other hyperlipidemia Primary hypertension Unspecified essential hypertension documented in this encounter Care Teams Felt Machine Mechanic Relationship Specialty Start Date End Date Marcio Devlin DO [address] [place] [id number] PCP - General Family Medicine 11/11/17 documented as of this encounter
--- OUTSIDE RECORDS SUMMARY | 2024-04-08 02:25 | XMS_ITS | Encounter Summary ---
Author Organization [facility] [place] [address] Care Team Providers Care Sales Support Assistant Name Role Phone Marcio Devlin DO Primary Care Provider [phone] Encounter Details Date Type Department Care Team (Late st Contact Info) Description 12/04/2023 Telephone Cardiology at [address] [phone] Rafaela Dillon Social History Tobacco Use Types Packs/Day Years Used Date Smoking Tobacco: Never Smokeless Tobacco: Never Alcohol Use Standard Drinks/Week Comments Yes 0 (1 standard drink = 0.6 oz pure alcohol) once every couple of months or less [facility] Utilities Answer Date Recorded In the past [address] [facility] [place] [employer], gas, oil, or water [employer] threatened to shut off services in your [...] PM EDT documented as of this encounter Miscellaneous Notes * Telephone Encounter - Rafaela Dillon - 12/04/2023 2:28 PM EDT Patient called the device clinic because she said the other night she rolled over and it felt like her pacemaker flipped on its side and then flipped back over. She said it has been sore since. I asked her to send in a transmission and told her we need to see her to evaluate. I then transferred herto scheduling for an urgent appt. documented in this encounter Plan of Treatment Upcoming Encounters Date Type Department Care Team (Late st Contact Info) Description 04/19/2024 10:00 AM EDT Hospital Encounter Non[place] [phone] Arrived 04/29/2024 9:50 AM EDT Appointment MRI at [place] [phone] Luis Alfredo Velazquez MD [facility] [place] [address] 04/29/2024 9:50 AM EDT Appointment MRI at [place] [address] Luis Alfredo Velazquez MD [facility] [place] [address] 06/07/2024 2:30 PM EDT TH Visit (TeleHealth) Gastroenterology at [address] Dajuan Rachel MD [facility] [place] [address] 07/02/2024 2:00 PM EDT Appointment Non-Invasive Cardiology Lab [address] Luis Alfredo Velazquez MD [facility] [place] [address] 07/02/2024 4:40 PM EDT Office Visit Cardiology at [place] [phone] Luis Alfredo Velazquez MD [facility] [place] [address] documented as of this encounter Visit Diagnoses Not on filedocumented in this encounter Care Teams Sales Support Assistant Relationship Specialty Start Date End Date Marcio Devlin DO [address] [place] [id number] PCP - General Family Medicine 11/11/17 documented as of this encounter
--- OUTSIDE RECORDS SUMMARY | 2024-04-08 02:25 | XMS_ITS | Clinical Summary ---
Author Organization [place] [address] Care Team Providers Care Mica Sizer Name Role Phone Marcio Devlin DO Primary Care Provider [phone] Allergies Active Allergy Reactions Criticality Noted Date Comments Amoxicillin-Pot Clavulanate Nausea And Vomiting Low Nausea/Vomiting, patient reported Celecoxib Rash Medium 04/18/2014 Cephalexin Nausea And Vomiting Low Nausea/Vomiting, Patient reported Doxycycline Nausea And Vomiting Low Nausea/Vomiting, Patient reported Ibuprofen High chest pains, Patient reported Etodolac Itching Medium 02/21/2011 Medications Medication Sig Dispensed Refills Start Date End Date Status multivitamin (THERAGRAN) tablet 10/15/2010 Active folic acid (FOLVITE) 1 mg tablet 1 MG = 1 Tablet(s), PO, Once daily 10/15/2010 Active ascorbic acid (VITAMIN C) 1,000 mg tablet 1000MG, PO, Once daily 10/15/2010 Active Calcium Carbonate-Vitamin D2 600-200 mg-unit Tab Take 1,200 mg by mouth 2 times daily. 02/21/2011 Active magnesium oxide (MAG-OX) 400 mg tablet Take 400 mg by mouth 2 times daily. 02/21/2011 Active omeprazole (PriLOSEC) 40 mg Capsule, Delayed Release(E.C.) Take 40 mg by mouth daily. Active metFORMIN (GLUCOPHAGE) 500 mg Tablet Take 500 mg by mouth 2 times daily. 3 11/15/2016 Active SUMAtriptan (IMITREX) 20 mg/actuation [place], Non-Aerosol 1 spray as needed. 11/03/2017 Activ e aspirin 81 mg Tablet, Delayed Release (E.C.) Take 81 mg by mouth daily. Active PROAIR HFA 90 mcg/actuation HFA Aerosol Inhaler as needed. 07/20/2018 Active topiramate 50 mg capsule,sprinkle,ER 24hr TAKE ONE CAPSULE BY MOUTH TWICE A DAY 3 08/25/2018 Active fexofenadine (DARRYN) 180 mg Tablet Take 180 mg by mouth daily. Active fish oil-omega-3 fatty acids 1,000 mg Capsule Take 2 g by mouth daily. Active cholecalciferol, Vitamin D3, (Vitamin D3) 1,000 unit Tablet Take by mouth daily. Active Asmanex HFA 200 mcg/actuation HFA Aerosol Inhaler Inhale 1 puff into the lungs daily. 07/12/2023 Active clindamycin (CLEOCIN T) 1 % LotionIndications:F olliculitis Apply to affected areas on abdomen twice daily for ten days. 60 mL 10/22/2023 Active Additional Information Patient not taking.Reported on 11/04/2023 atorvastatin (Lipitor) 40 mg tablet 11/24/2023 Active losartan (Cozaar) 100 mg tablet Take 1 tablet by mouth Daily at Noon. 11/11/2023 Active amLODIPine (Norvasc) 2.5 mg tablet Take 1 tablet by mouth daily. 90 each 3 11/26/2023 Active Additional Information Patient taking differently: 10 mgOral DAILY, Reported on 01/06/2024 Rinvoq 15 mg ER 24 hr tablet TAKE 1 TABLET DAILY 30 tablet 3 02/03/2024 Active Active Problems Problem Noted Date Diagnosed Date Pacemaker 11/04/2023 Overview (11/04/2023): Mobile Ui/Ux Designer Model # Serial # Generator [employer] [id number] Atrial Lead [employer] [id number] Ventricular Lead [employer] [id number] 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 Assessment & Plan (11/26/2023 4:39 PM EDT): This will be followed by electrophysiology. I will order a repeat limited transthoracic echocardiogram prior to our next visit. Complete heart block 10/20/2023 Overview (11/26/2023): 10/20 p/w fatigue, s/p A/V sequential PPM Assessment & Plan (11/26/2023 4:43 PM EDT): We will consider imaging for infiltrative/inflammatory disease. She denies any family history of sudden cardiac . In one survey of ankylosing spondylitis patient's 1 of 210 had complete heart block ([email or web address]). Having said she will still have some inflammatory changes from her permanent pacemaker. I will inquire with her images whether they feel cardiac MRI would be of sufficient quality if not we will proceed with a PET scan in 1-2 months. Prediabetes 05/07/2022 Presence of left artificial hip joint 05/07/2022 Seborrheic keratoses 05/07/2022 Trochanteric bursitis of left hip 11/21/2021 Osteopenia since DXA scan in 1995 (T-score -1.7 at the spine) 04/27/2020 Overview (04/27/2020): Recent DXA scan 06/02/19 CLINICAL HISTORY: follow up for osteopenia?? FINDINGS: T-score: -1.7, TITA: Lumbar spine, WHO [...] 3 years. The fracture risks are increased. ?? High risk medication use 06/01/2019 Inflammatory arthropathy 06/01/2019 Primary osteoarthritis of right hip 02/23/2019 Prolapse of female pelvic organs 03/10/2018 Obesity (BMI 30.0-34.9) 02/24/2018 History of migraine headaches 02/24/2018 Overview (02/24/2018): Markedly improved with metoprolol. Mild asthma 02/24/2018 Type 2 diabetes mellitus wit hout complication, without long-term current use of insulin 02/24/2018 RADHA (stress urinary incontinence, female) 2016 Urethral caruncle 08/15/2017 Closed fracture of proximal phalanx of little fi nger 06/04/2017 Abnormal blood sugar 08/07/2015 Otitis externa 07/18/2014 Migraine 03/29/2014 Paresthesia 05/25/2013 MÉNDEZ (nonalcoholic steatohepatitis) 02/21/2011 Lipid disorder 02/21/2011 Ankylosing spondylitis 02/21/2011 Overview (02/21/2011): Spondylitis and ulcerative colitis. Hypertension 02/21/2011 Assessment & Plan (11/26/2023 4:38 PM EDT): She was previously on metoprolol succinate 50 mg daily. BP is markedly elevated in clinic today. We will start amlodipine 2.5 mg daily. This can be uptitrated by PCP. Goal blood pressure < 125/75 mm Hg at all times. GERD (gastroesophageal reflux disease) 1 Peripheral venous insufficiency 08/17/2010 Non-alcoholic fatty liver disease 01/15/2010 Hypomagnesemia 11/23/2009 Adalimumab (Humira) long-term use 09/15/2009 Hyperlipidemia 04/15/2004 Assessment & Plan (11/26/2023 4:44 PM EDT): Simvastatin was replaced by atorvastatin recently. Her PCP will follow-up on her lipid panel. 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 Shady Luz at [facility]) for surveillance for dysplasia. Areas of skip inflammation without ulceration in the transverse colon, descending colon, and the rectosigmoid. Upon attempt at retroflexion, a rectal mucosal tear requiring subsequent admission with 10 days antibiotics. Biopsies: normal ileum, non- specific eosinophilic infiltration of the cecum, chronic inactive [...] 2020 - severe involvement of L colon, [id number] involvement of transverse and R colon. Worse compared to last exam. SSA at hepatic flexure Adalimumab level (garcía) was 12.7 Switched to Stelara ( 03/21/21, first infusion dose) d/t Lost of response to Humira. Stopped Uceris and sulfasalazine in January 2021. [place] 09/2022 - tubular featureless L colon with slightly diminished vascular pattern. Histology with mild colitis in sigmoid and inactive in descending. SSA in hep flex. DIFFICULT AIRWAY Overview (02/24/2018): As described in 2006 anesthesia record in [facility]. Encounters Date Type Department Care Team Description 02/03/2024 [place] [address] Lola Haley DO 01/20/2024 10:00 AM EDT - 01/20/2024 11:59 PM EDT Hospital Encounter [place] [address] Discharge Disposition: Home from Last 3 Months Immunizations Name Administration Dates Next Due Hep A/B (TwinRix) 02/21/2011,08/14/2010 Inactivated Polio Vaccine (IPOL) 05/16/2013 Influenza Quadrivalent, Preservative Free 2020,07/16/2019,07/27/2018 Influenza Trivalent w/Preservative 07/08/2014, Influenza Vaccine, Whole 06/15/2005 Moderna Covid-19 Monovalent 12Yr+ (Internal Auditor 100mcg) 01/13/2021,12/16/2020 Pneumococcal Conjugate (Prevnar 13) 02/29/2016 Pneumococcal Polysaccharide (Pneumovax 23) 03/29,03/15/2014 Td Adult, Absorbed, Preservative Free 03/30/2020 Tdap 01/26/2010 Tuberculin Skin Test, PPD 02/27/2009 Zoster (ShingRix), Recombinant 02/19/2020,2019 Family History Medical History Relation Comments Cancer Father Lung Heart Disease Father Diabetes Mother Heart Disease Mother Hypertension Mother Relation Status Comments Father Mother Social History Tobacco Use Types Packs/Day Years Used Date Smoking Tobacco: Never Smokeless Tobacco: Never Tobacco Cessation:Counseling Given: Not Answered Alcohol Use Standard Drinks/Week Comments Yes 0 (1 standard drink = 0.6 oz pure alcohol) once every couple of months or less [facility] Utilities Answer Date Recorded In the past [...] place to sleep or slept in a fpc (including now)? No 10/21/2023 IPV Inpatient Questions [...] Orientation Straight 07/21/2021 4: 56 PM EDT Last Filed Vital Signs Vital Sign Reading Time Taken Comments Blood Pressure 130/63 01/06/2024 12:48 PM EDT Pulse 70 01/06/2024 12:48 PM EDT Temperature 36.5 ??C (97.7 ??F) 01/06/2024 12:48 PM E DT Respiratory Rate 26 10/22/2023 8:00 AM EST Oxygen Saturation 99% 01/06/2024 12:48 PM EDT Inhaled Oxygen Concentration - - Weight 80.7 kg (178 lb) 01/06/2024 12:48 PM EDT Height 166.4 cm (5' 5.5) 12/04/2023 3:40 PM EDT Body Mass Index 29.17 12/04/2023 3:40 PM EDT Plan of Treatment Upcoming Encounters Date Type Department Care Team (Late st Contact Info) Description 04/19/2024 10:00 AM EDT Hospital Encounter Non[place] [address] Arrived 04/29/2024 9:50 AM EDT [place] [phone] Luis Alfredo Velazquez MD [facility] [place] [address] 04/29/2024 9:50 AM EDT Appointment MRI at [place] [phone] Luis Alfredo Velazquez MD [facility] [place] [address] 06/07/2024 2:30 PM EDT TH Visit (TeleHealth) [place] [address] Dajuan Rachel MD [facility] [place] [address] 07/02/2024 2:00 PM EDT Appointment Non-Invasive Cardiology Lab [place] [phone] Luis Alfredo Velazquez MD [facility] [place] [address] 07/02/2024 4:40 PM EDT Office Visit Cardiology at [address] [phone] Luis Alfredo Velazquez MD [facility] [place] [address] Health Maintenance Due Date Last Done Comments CT Colonography 1961 FIT DNA 1961 FIT 1961 Sigmoidoscopy 1961 DM Opthalmology Exam 1971 DM Urine Microalbumin yearly 1971 HIV screen 1979 Hepatitis C Screening 1979 HPV test 1991 PAP Smear 1991 Breast Cancer Share Decision Needed 2001 Breast Cancer screening 2001 DM Hemoglobin A1c 11/18/2011 08/19/2011 Advance Directive 2016 Covid-19 Vaccine (2022- 4 season) 2023 01/13/2021, 12/16/2020 Influenza (Flu) vaccine (1 o f 1 - Influenza standard series) 05/16/2024 09/28/2020, 07/16/2019, 07/27/2018, Additional history exists DM Creatinine yearly 10/22/2024 10/22/2023, 10/21/2023, 10/20/2023, Additional history exists Colonoscopy 09/18/2025 09/18/2023, 12/2023, 09/24/2022, Additional history exists Colorectal Cancer Screening 09/18/2025 Pneumococcal Vaccine: At-Ris k 5-64yrs (3 of 3 - PPSV23 or PCV20) 2026 02/29/2016, 014, 03/15/2014 Tetanus vaccine 03/30/2030 03/30/2020, 01/26/2010 Sigmoidoscopy (10 year) with FIT yearly 09/18/2033 09/18/2023, 09/18/2023, 09/24/2022, Additional history exists Tdap adult Completed 01/26/2010 Zoster vaccine Completed 02/19/2020, 10/13/2019 Medical Devices Implanted Type Area Mobile Ui/Ux Designer Device Identifier Shelf Expiration Date Model / Serial / Lot Anselmo De La Cruz Urny, Incont ([id number]) - [id number] Implanted:Qty: 1 on 03/10/2018 by Liang Fong MD at [facility] - [id number] 05/27/2020 [facility]-DS01 B / / [id number] Bsx Ingevity + [id number] Lead10/21/2023 Implanted:Qty: 1 on 10/21/2023 by Dilip Berumen MD Lead Heart [employer] [id number] / [id number] / Bsx Ingevity + [id number] Lead-10/21/2023 Implanted:Qty: 1 on 10/21/2023 by Dilip Berumen MD Lead Heart [employer] [id number] / [id number] / Bsx Accolade Mri L311-10/21/2023 Implanted:Qty: 1 on 10/21/2023 by Dilip Berumen MD Pacemaker Chest Wall [employer] [id number] / [id number] / Description:[place] [facility] [place] the above implant (L311, 7841-52, [id number]) is MR Conditional up to 3T. The following parameters must be followed when scanning: MRI magnet strength of 64 MHz for 1.5 T, 128 MHz for 3 T. Spatial gradient no greater than 50 T/m (5,000 G/cm) over the pacing system for 1.5 T or 3 T. Horizontal, 1H proton, closed bore scanners only. Specific Absorption Rate (RICHY) limits: for an ImageReady? ? Pacing System utilizing only INGEVITY? ? MRI leads ? RICHY limits up to First Level Controlled Operating Mode2 may be applied for the entire active scan as follows: Whole body averaged, = 4.0 W/Kg, Head, = 3.2 W/Kg. Gradient Field limits ? Maximum specified gradient slew rate = 200 T/m/s per axis. There are no restrictions for positioning the pacing system within the integrated body coil of the MRI scanner. The use of receive-only coils is not restricted; local transmit coils may be used but should not be placed directly over the pacing system. Patient in supine or prone position only. Patient must be continuously monitored during the MRI scan by pulse oximetry and/or electrocardiography by an ACLS Certified Nurse. NOTE Ensure that external defibrillator and medical personnel skilled in CPR are present during the MRI scan should the patient require external rescue. Patient will need to have the device placed into MRI Safe Mode by EP prior to the beginning of the procedure and taken out of at the conclusion. Patient will need a two view chest x-ray within one year of the MRI Exam. Sanju Ruiz RT(R)(CT)(MR)(ARRT), MRI Safety Technologist, 02/26/2024 Procedures Procedure Name Priority Date/Time Associated Diagnosis Comments CARDIAC DEVICE CHECK - REMOTE Routine 02/23/2024 8:02 AM EDT BASIC METABOLIC PANEL (NON-FASTING) Routine 10/22/2023 2:41 AM EST COLONOSCOPY Routine 09/18/2023 3:57 PM EST HEMOGLOBIN A1C Routine 08/19/2011 5:44 PM EST from Last 3 Months or Most Recently Relevant to Health Maintenance Results * Cardiac Device Check - Remote (02/23/2024 8:02 AM EDT) Anatomical Region Laterality Modality Other 02/23/2024 8:02 AM EDT Jim Limon MD IMPLANTABLE CARDIAC DEVICE * (ABNORMAL) Basic Metabolic Panel (non-fasting) (10/22/2023 2:41 AM EST) Glucose Lvl 115 65 - 199 mg/dL [facility] Comment:Diabetes: >=200 mg/d L plus symptoms BUN 21(H) 8 - 18 mg/dL [facility] Creatinine 1.12 0.70 - 1.20 mg/dL [facility] Sodium 142 135 - 145 mmol/L [facility] Potassium 3.8 3.5 - 5.0 mmol/L [facility] Comment: Please note: ??Patients with WBC >100,000 may have falsely elevated Potassium levels. ??For accurate Potassium quantification in these patients send serum separator tube (gold top) for subsequent determinations. ??Contact the Clinical Chemistry Laboratory if there are any questions. Chloride 107 98 - 107 mmol/L [facility] CO2 23 22 - 31 mmol/L [facility] Anion Gap 12 5 - 15 mmol/L [facility] Calcium 9.1 8.5 - 10.5 mg/dL [facility] Estimated GFR 56(L) >=60 mL/min/1. 73 m?? [facility] Comment: This patient's estimated GFR was calculated using the 2020 CKD-EPI equation. The estimated GFR can vary from the measured GFR by up to 30% in the absence of rapidly changing kidney function. Assessment of the estimated GFR is not appropriate when creatinine concentrations are rapidly changing. For clinical situations in which a more precise estimate of GFR is necessary, consider alternative methods of GFR estimation such as a 24-hour urine creatinine clearance. Assignment of CKD stage 1-5 for patients with an eGFR near the transition point between stages may be based on clinical assessment of muscle mass and symptoms in addition to eGFR. Blood 10/22/2023 2:41 AM EST 10/22/2023 2:41 AM EST Narrative Resulting Agency Comment Spec In Lab Glenn Miranda MD CHEMISTRY ORDERABLES [facility] [place] [address] * COLONOSCOPY (09/18/2023 3:57 PM EST) COLONOSCOPY [facility]oscopy ___ Procedure Date: 09/18/2023 3:57 PM ? Patient Name: Kmi Funes ? Date of : 1960 ? Age: 63 ? Order #: [id number] ? Instrument Name: [id number] ? ___ Procedure: ? Colonoscopy Indications: ? Disease activity assessment of ? chronic ulcerative pancolitis since ? starting updacitinib (Rinvoq) Patient Profile: ? This is a 63 year old female. This ? patient has ulcerative pancolitis, ? is taking upadacitinib and is ? experiencing mild symptoms. Providers: ? Freddy Rachel MD, Sugar Ruffin, ? Juan Kessler Referring : ?Marcio Devlin, DO Medicines: ? Midazolam 6.5 mg IV, Fentanyl 225 ? micrograms IV Complications: ? No immediate complications. ___ Procedure: ? Pre-Anesthesia Assessment: ? - Prior to the procedure, a History ? and Physical was performed, and ? patient medications and allergies ? were reviewed. The patient is ? competent. The risks and benefits ? of the procedure and the sedation ? options and risks were discussed ? with the patient. All questions ? were answered and informed consent ? was obtained. Patient ? identification and proposed ? procedure were verified by the ? physician in the pre-procedure area ? in the endoscopy suite. Mental ? Status Examination: alert and ? oriented. Airway Examination: ? normal oropharyngeal airway and ? neck mobility. Respiratory ? Examination: clear to auscultation. ? CV Examination: normal. ASA Grade ? Assessment: II - A patient with ? mild systemic disease. After ? reviewing the risks and benefits, ? the patient was deemed in ? satisfactory condition to undergo ? the procedure. The anesthesia plan ? was to use moderate sedation / ? analgesia (conscious sedation). ? Immediately prior to administration ? of medications, the patient was ? re-assessed for adequacy to receive ? sedatives. The heart rate, ? respiratory rate, oxygen ? saturations, blood pressure, ? adequacy of pulmonary ventilation, ? and response to care were monitored ? throughout the procedure. The ? physical status of the patient was ? re-assessed after the procedure. ? The procedure, indications, ? benefits, risks and alternatives ? were explained to the patient. ? Specifically discussed were ? potential complications including, ? but not limited to, bleeding, ? perforation, infection, missing a ? cancer, and adverse medication ? reactions. The patient was placed ? in the left lateral decubitus ? position, and a digital rectal exam ? was performed. The Colonoscope was ? inserted in the anus and under ? direct visualization, advanced to ? the terminal ileum, with ? identification of the appendiceal ? orifice and IC valve. Careful ? inspection was made as the ? colonoscope was withdrawn. The ? colonoscopy was performed without ? difficulty. The patient tolerated ? the procedure well. The quality of ? the bowel preparation was evaluated ? using the BBPS ([place] Bowel ? Preparation Scale) with scores of: ? Right Colon = 3 (entire mucosa seen ? well with no residual staining, ? small fragments of stool or opaque ? liquid), Transverse Colon = 3 ? (entire mucosa seen well with no ? residual staining, small fragments ? of stool or opaque liquid) and Left ? Colon = 3 (entire mucosa seen well ? with no residual staining, small ? fragments of stool or opaque ? liquid). The total BBPS score ? equals 9. The quality of the bowel ? preparation was excellent. Scope ? withdrawal time was 16 minutes. ? Findings: ? The perianal and digital rectal examinations were ? normal. ? Careful light chromoendoscopy examination using BLI ? and then high definition white light done throughout ? the colon. Eight non-directed biopsies were taken ? with a cold forceps from each of four segments of the ? colon (the right colon, transverse colon, descending ? colon and rectosigmoid colon) for dysplasia ? surveillance. These biopsy specimens were sent ? separately to Pathology. ? Similar to last exam, there was a large ill-defined ? area of villous and granular mucosal pit pattern ? around the hepatic flexure and also a slightly ? blunted vascular pattern and tubular architecture in ? the left colon. Otherwise, the exam was normal ? without any signs of active ulcerative colitis. ? The terminal ileum appeared normal. ? Moderate Sedation: ? I was present during the intraservice time as ? documented by the sedation RN. Impression: ?- Quiescent ulcerative colitis in ? endoscopic remission with chronic ? changes as described above. ? Surveillance biopsies taken. ? - The examined portion of the ileum ? was normal. Recommendation: ?- Follow-up in IBD Clinic. ? - Continue Rinvoq. ? - Please have labs checked at [facility]. ? - Await pathology results. ? Attending Participation: ? I personally performed the entire procedure. ? _ L. Jose Rachel MD 09/18/2023 5:05:33 PM Number of Addenda: 0 Note Initiated On: 09/18/2023 3:57 PM [employer]ATION 09/18/2023 3:57 PM EST Marcio Devlin DO GENERAL SURGICAL ORD ERABLES [employer]OVATION * HEMOGLOBIN A1C (08/19/2011 5:44 PM EST) Hemoglobin A1C 5.6 4.3 - 6.1 % [facility] Est Avg Gluc 114 mg/dL [facility] Comment: eAG equivalents for HbA1c percentages: HbA1c(%) ?eAG(mg/dL) 6.0 ?126 6.5 ?140 7.0 ?154 7.5 ?169 8.0 ?183 8.5 ?197 9.0 ?212 9.5 ?226 10.0 ? 240 Limitations: The eAG calculation has not been validated on women, individuals below 18 years old and above 70 years old, and individuals with hemoglobinopathies. Additional resources are available on the ADA website: ??http://professional.diabetes.org/glucosecalculator.aspx Reference: Ortiz GOODMAN, Amara J, Brandyn R, et al. ??Translating the A1C assay into estimated average glucose values. ??Diabetes Care 2008:31(8):9912-5651. Blood specimen (specimen) 08/19/2011 5:44 PM EST 08/19/2011 5:48 PM EST Marc Chan MD CHEMISTRY ORDERABLES [facility] from Last 3 Months or Most Recently Relevant to Health Maintenance Advance Directives * Attempt Cardiopulmonary Resuscitation - Inpatient (Latest Code Status on File) Date Activated Date Inactivated Comments 10/21/2023 3:15 PM 10/22/2023 1:26 PM Question Answer Comments Code Status decision made by: Patient * Attempt Cardiopulmonary Resuscitation - Inpatient Date Activated Date Inactivated Comments 10/20/2023 10:19 AM 10/21/2023 3:15 PM Question Answer Comments Code Status decision made by: Patient * Full Code Date Activated Date Inactivated Comments 03/10/2018 10:54 AM 03/11/2018 10:59 AM Question Answer Comments Does patient have capacity to make decision: Yes * Full Code Date Activated Date Inactivated Comments 03/10/2018 6:42 AM 03/10/2018 10:54 AM Question Answer Comments Does patient have capacity to make decision: Yes Care Teams Mica Sizer Relationship Specialty Start Date End Date Marcio Devlin DO [address] [place] [address] PCP - General Family Medicine 11/11/17
--- OUTSIDE RECORDS SUMMARY | 2024-04-08 02:25 | XMS_ITS | Encounter Summary ---
Author Organization Formerly [facility] [place] [address] Care Team Providers Care Superintendent Overhead Distribution Name Role Phone Marcio Devlin DO Primary Care Provider [phone] Encounter Details Date Type Department Care Team (Late st Contact Info) Description 11/11/2023 Telephone Cardiology at [address] [phone] Clau Romero RN Social History Tobacco Use Types Packs/Day Years Used Date Smoking Tobacco: Never Smokeless Tobacco: Never Alcohol Use Standard Drinks/Week Comments Yes 0 (1 standard drink = 0.6 oz pure alcohol) once every couple of months or less [facility] Utilities Answer Date Recorded In the past 12 months has [facility] [employer], gas, oil, or water [employer] threatened to shut off services in your [...] place to sleep or slept in a [place] health care facility (including now)? No 10/21/2023 IPV Inpatient Questions [...] encounter Miscellaneous Notes * Telephone Encounter - Clau Romero RN - 11/11/2023 10:11 AM EST RTC to Mrs Craig regarding her message stating her insurance has denied her stay in ICU after her procedure for her Pacemaker. The dates of denial are for 10/21, and 10/22/2023., Admission for Complete Heart Block, and Pacemaker insertion is 10/20/2023. Patient states she has spoken with Billing, and chart research shows Insurance Denial Letter has been scanned into Media, by [employer] [facility]. Clau Romero (Jodie) RN, BSN Cardiology Ambulatory Clinic documented in this encounter Plan of Treatment Upcoming Encounters Date Type Department Care Team (Late st Contact Info) Description 04/19/2024 10:00 AM EDT Hospital Encounter [place] [address] Arrived 04/29/2024 9:50 AM EDT Appointment MRI at [place] [phone] Luis Alfredo Velazquez MD [facility] [place] [address] 04/29/2024 9:50 AM EDT Appointment MRI at [place] [phone] Luis Alfredo Velazquez MD [facility] [place] [place] [address] 06/07/2024 2:30 PM EDT TH Visit (TeleHealth) Gastroenterology at [place] [phone] Dajuan Rachel MD [facility] [place] [address] 07/02/2024 2:00 PM EDT Appointment Non-Invasive Cardiology Lab [place] [phone] Luis Alfredo Velazquez MD [facility] [place] [address] 07/02/2024 4:40 PM EDT Office Visit Cardiology at [address] [phone] Luis Alfredo Velazquez MD [facility] [place] [address] documented as of this encounter Visit Diagnoses Not on filedocumented in this encounter Care Teams Superintendent Overhead Distribution Relationship Specialty Start Date End Date Marcio Devlin DO [address] [place] [address] [place] [address] PCP - General Family Medicine 11/11/17 documented as of this encounter
--- OUTSIDE RECORDS SUMMARY | 2024-04-08 02:25 | XMS_ITS | Encounter Summary ---
Author Organization [facility] [place] [address] Care Team Providers Care Epic Stork Specialists Name Role Phone Marcio Devlin DO Primary Care Provider [phone] Encounter Details Date Type Department Care Team (Latest Contact Info) Description 11/04/2023 Travel Social History Tobacco Use Types Packs/Day Years Used Date Smoking Tobacco: Never Smokeless Tobacco: Never Alcohol Use Standard Drinks/Week Comments Yes 0 (1 standard drink = 0.6 oz pure alcohol) once every couple of months or less [facility] Utilities Answer Date Recorded In the past [...] place to sleep or slept in a nursing home (including now)? No 10/21/2023 IPV Inpatient [...] AM EDT Hospital Encounter Non-Invasive [place] [address] Arrived 04/29/2024 9:50 [place] [phone] Luis Alfredo Velazquez MD [facility] [place] [address] 04/29/2024 9:50 [place] [phone] Luis Alfredo Velazquez MD [facility] [place] [address] 06/07/2024 2:30 PM EDT TH Visit (TeleHealth) [place] [address] Dajuan Rachel MD [facility] DR [place]STRO[place] [address] 07/02/2024 2:00 PM EDT Appointment Non-Invasive [place] [phone] Luis Alfredo Velazquez MD [facility] [place] [address] 07/02/2024 4:40 PM EDT Office Visit Cardiology at [address] [phone] Luis Alfredo Velazquez MD [facility] [place] [address] documented as of this encounter Visit Diagnoses Not on filedocumented in this encounter Care Teams Epic Stork Specialists Relationship Specialty Start Date End Date Marcio Devlin DO [address] [place] [address] PCP - General Family Medicine 11/11/17 documented as of this encounter
--- OUTSIDE RECORDS SUMMARY | 2024-04-08 02:25 | XMS_ITS | Encounter Summary ---
Author Organization [facility] [place] [address] Care Team Providers Care Consumer Loan Underwriter Name Role Phone Marcio Devlin DO Primary Care Provider Reason for Visit * Reason Comments Medication Refill Encounter Details Date Type Department Care Team (Late st Contact Info) Description 02/03/2024 Refill [place] [address] Lola Haley, [facility] [place] [address] Social History Tobacco Use Types Packs/Day Years Used Date Smoking Tobacco: Never Smokeless Tobacco: Never Alcohol Use Standard Drinks/Week Comments Yes 0 (1 standard drink = 0.6 oz pure alcohol) once every couple of months or less [facility] Utilities Answer Date Recorded In the past 12 months has [employer], gas, oil, or water company threatened [...] AM EDT Hospital Encounter Non-[place]vasive [place] [phone] Arrived 04/29/2024 9:50 AM EDT [place]ment [place] [phone] Luis Alfredo Velazquez MD [facility] [place] [address] 04/29/2024 9:50 AM EDT Appointment MRI at [place] [phone] Luis Alfredo Velazquez MD [facility] [place] [address] 06/07/2024 2:30 PM EDT TH Visit (TeleHealth) [place] [address] Dajuan Rachel MD [facility] [place] [address] 07/02/2024 2:00 PM EDT Appointment Non[place] [address] Luis Alfredo Velazquez MD [facility] [place] [address] 07/02/2024 4:40 PM EDT Office Visit Cardiology at [place] [phone] Luis lAfredo Velazquez MD [facility] [place] [address] documented as of this encounter Visit Diagnoses Not on filedocumented in this encounter Care Teams Consumer Loan Underwriter Relationship Specialty Start Date End Date Marcio Devlin DO [address] [place] [address] PCP - General Family Medicine 11/11/17 documented as of this encounter
--- OUTSIDE RECORDS SUMMARY | 2024-04-08 02:25 | XMS_ITS | Encounter Summary ---
Author Organization [facility] Address [facility] [place] [address] Care Team Providers Care Clinical Research Nurse Coordinator Name Role Phone Marcio Devlin DO Primary Care Provider [phone] Encounter Details Date Type Department Care Team (Latest Contact Info) Description 12/04/2023 4:21 PM EDT - 12/04/2023 11:59 PM EDT Hospital Encounter XRay at [address] [place] [address] Lizzette Lemos MD [facility] [place] [address] Pacemaker Discharge Disposition: Home Social History Tobacco Use Types Packs/Day Years Used Date Smoking Tobacco: Never Smokeless Tobacco: Never Alcohol Use Standard Drinks/Week Comments Yes 0 (1 standard drink = 0.6 oz pure alcohol) once every couple of months or less [facility] Utilities Answer Date Recorded In the past [...] place to sleep or slept in a residential (including now)? No 10/21/2023 DH IPV Inpatient [...] by mouth daily. SUMAtriptan (IMITREX) 20 mg/actuation [place], Non-Aerosol 1 spray as needed. 11/03/2017 metFORMIN [...] AM EDT Hospital Encounter Non-Invasive [place] [address] Arrived 04/29/2024 9:50 AM EDT [place] [address] Luis Alfredo Velazquez MD [facility] [place] [address] 04/29/2024 9:50 AM EDT Appointment MRI at [place] [address] Luis Alfredo Velazquez MD [facility] [place] [address] 06/07/2024 2:30 PM EDT TH Visit (TeleHealth) Gastroenterology at [place] [phone] Dajuan Rachel MD [facility] [place] [address] 07/02/2024 2:00 PM EDT Appointment [place] [address] Luis Alfredo Velazquez MD [facility] [place] [address] 07/02/2024 4:40 PM EDT Office Visit Cardiology at [place] [phone] Luis Alfredo Velazquez MD [facility] [place] [address] documented as of this encounter Procedures Procedure Name Priority Date/Time Associated Diagnosis Comments XR CHEST PA AND LATERAL Routine 12/04/2023 4:35 PM EDT Pacemaker documented in this encounter Results * XR Chest PA & Lateral (Generic) (12/04/2023 4:35 PM EDT) Anatomical Region Laterality Modality Chest N/A Digital Radiogra phy Impressions 12/05/2023 8:45 AM EDT Subtle caudal migration of the left chest wall pulse generator with unchanged and intact leads. I have personally reviewed the image(s) and the resident's interpretation and agree with the findings, Shalonda Mccain MD at 12/05/2023 8:45 AM Thank you for letting us participate in the care of this patient. ??If you are a health care provider and have any questions regarding this report, please contact the number below. ??For patients who have questions please contact the health care support representative that requested your imaging first. ? Electronically signed by: Shalonda Mccain MD, [facility] ([phone]), at 12/05/2023 8:45 AM Narrative 12/05/2023 8:45 AM EDT EXAMINATION: XR CHEST PA AND LATERAL (GENERIC) CLINICAL HISTORY: patient is concerned about pacemaker implant flipping in chest, assessing pacemaker position Z95.0, Presence of cardiac pacemaker TECHNIQUE: PA and lateral views of the chest COMPARISON: Chest radiograph 10/22/2023 FINDINGS: Subtle caudal migration of the left chest wall pulse generator. Two unchanged and intact leads terminating within the right atrium and right ventricle. The lungs are clear. No pneumothorax. No pleural effusion. Unchanged cardiac mediastinal contours. No interval osseous change. Procedure Note Shalonda Ribeiro MD - 12/05/2023 EXAMINATION: XR CHEST PA AND LATERAL (GENERIC) CLINICAL HISTORY: patient is concerned about pacemaker implant flippingin chest, assessing pacemaker position Z95.0, Presence of cardiac pacemaker TECHNIQUE: PA and lateral views of the chest COMPARISON: Chest radiograph 10/22/2023 FINDINGS: Subtle caudal migration of the left chest wall pulse generator. Twounchanged and intact leads terminating within the right atrium and rightventricle. The lungs are clear. No pneumothorax. No pleural effusion. Unchangedcardiac mediastinal contours. No interval osseous change. IMPRESSION Subtle caudal migration of the left chest wall pulse generator withunchanged and intact leads. I have personally reviewed the image(s) and the resident's interpretationand agree with the findings, Shalonda Mccain MD at 12/05/2023 8:45AM Thank you for letting us participate in the care of this patient. If youare a health care provider and have any questions regarding this report,please contact the number below. For patients who have questions please contactthe health care support representative that requested your imaging first. Electronically signed by: Shalonda Mccain MD, [facility] ([phone]), at 12/05/2023 8:45 AM Lizzette Lemos MD IMG DX ORDERABLES documented in this encounter Visit Diagnoses Diagnosis Pacemaker Cardiac pacemaker in situ documented in this encounter Care Teams Clinical Research Nurse Coordinator Relationship Specialty Start Date End Date Marcio Devlin DO [address] [place] [address] PCP - General Family Medicine 11/11/17 documented as of this encounter
--- OUTSIDE RECORDS SUMMARY | 2024-04-08 02:25 | XMS_ITS | Encounter Summary ---
Author Organization [facility] [place] [address] Care Team Providers Care Access Consultant Name Role Phone Marcio Devlin DO Primary Care Provider [phone] Encounter Details Date Type Department Care Team (Latest Contact Info) Description 12/04/2023 Travel Social History Tobacco Use Types Packs/Day Years Used Date Smoking Tobacco: Never Smokeless Tobacco: Never Alcohol Use Standard Drinks/Week Comments Yes 0 (1 standard drink = 0.6 oz pure alcohol) once every couple of months or less [facility] Utilities Answer Date Recorded In [...] place to sleep or slept in a custodial (including now)? No 10/21/2023 IPV Inpatient Questions [...] AM EDT Hospital Encounter Non-[place] [address] Arrived 04/29/2024 9:50 AM [place] [address] Luis Alfredo Velazquez MD [facility] [place] [address] 04/29/2024 9:50 AM [place] [address] Luis Alfredo Velazquez MD [facility] [place] [address] 06/07/2024 2:30 PM EDT TH Visit (TeleHealth) [place] [address] Dajuan Rachel MD [facility] DR GASTROENTEROLOGY [place] [address] 07/02/2024 2:00 PM EDT Appointment Non-[place] [phone] Luis Alfredo Velazquez MD [facility] [place] [address] 07/02/2024 4:40 PM EDT Office Visit Cardiology at [address] [phone] Luis Alfrdeo Velazquez MD [facility] [place] [address] documented as of this encounter Visit Diagnoses Not on filedocumented in this encounter Care Teams Access Consultant Relationship Specialty Start Date End Date Marcio Devlin DO [address] [place] [address] PCP - General Family Medicine 11/11/17 documented as of this encounter
--- OUTSIDE RECORDS SUMMARY | 2024-04-08 02:26 | XMS_ITS | Encounter Summary ---
Author Organization [facility] [place] [address] Care Team Providers Care Library Helper Name Role Phone Marcio Devlin DO Primary Care Provider [phone] Encounter Details Date Type Department Care Team (Late st Contact Info) Description 09/10/2023 Telephone [place] [address] [place] Rushing Social History Tobacco Use Types Packs/Day Years Used Date Smoking Tobacco: Never Smokeless Tobacco: Never Alcohol Use Standard Drinks/Week Comments Yes 0 (1 standard drink = 0.6 oz pure alcohol) once every couple of months or less Overall Financial Resource Strain (CARDIA) Lorettae r Date Recorded How hard is it for you to pa y for the very basics like food, housing, medical care, and heating? Not hard at all 05/03/2022 Hunger Vital Sign Answer Date Recorded Within the past 12 months, y ou worried that your food would run out before you got the money to buy more. Never true 05/03/20 22 Within the past 12 months, t he food you bought just didn't last and you didn't have money to get more. Never true 05/03/2022 PRAPARE - Transportation Answer Date Re corded In the past 12 months, has l ack of transportation kept you from medical appointments or from getting medications? No 04/15 In the past 12 months, has l ack of transportation kept you from meetings, work, or from getting things needed for daily living? No 05/03/2022 Housing Stability Vital Sign Answer Pelon e Recorded In the last 12 months, was t here a time when you were not able to pay the mortgage or rent on time? No 05/03/2022 In the last 12 months, how many places have you lived? 1 05/03/2022 In the last 12 months, was t here a time when you did not have a steady place to sleep or slept in a fpc (including now)? No 05/03/2022 Sex and Gender Information Value Date Recorded Sex Assigned at Female 07/21/2021 4:56 PM EDT Gender Identity Female 07/21/2021 4:56 PM EDT Sexual Orientation Straight 07/21/2021 4: 56 PM EDT documented as of this encounter Miscellaneous Notes * Telephone Encounter - IsaelAugusto manmontse Soto - 09/10/2023 1:40 PM EST Kim Funes [id number] Diagnosis/Indication: UC surveillance - Rinvoq started 04/2023 Please review patient chart to confirm if previous Endoscopy procedure was performed within system. If yes, take note of Anesthesia type used. If previous procedure found, and with MAC/propofol Anesthesia support was used, schedule this procedure with Anesthesia and skip the Anesthesia portion of questions. If not performed within system, not performed at all, or performed with IVCS, ask Anesthesia questions. SCHEDULING QUESTIONS (ask all patient these questions) Have you ever had a/an Colonoscopy before? Yes: Date 09/24/22 If yes, did you have any problems with the procedure (such as waking up during the procedure, pain or difficulties afterwards, etc.)? No What type of sedation was used: IV Conscious Sedation Do you take any blood thinners or have you been diagnosed with a bleeding disorder that increases your risk of bleeding with procedures? No Do you have a Pacemaker or Defibrillator device? If yes, send pool message to Cardiology with patient information and date or procedure. No Are you a diabetic? If yes, call PCP/managing provider to discuss use of prep and any questions or concerns related to. Yes: Controlled by diet or medication? Both Do you take any iron supplements or vitamins that contain iron? Yes Multi Do you have a preference regarding the gender of your provider? Yes Rachel ANESTHESIA QUESTIONS (YES to any question, please book with Anesthesia support) Have you ever been diagnosed with Pulmonary Hypertension and/or Congential Heart Disease? No Have you been diagnosed with A-Fib (atrial fibrillation) that is NOT being well controled with medications? No Have you ever had an allergic or adverse reaction to Fentanyl or Versed? No Have you had a problem with sedation or anesthesia? (Waking up during procedure, extreme confusion after, etc.) No Do you have a diagnosis of Obstructive Sleep Apnea that requires the use of a c- pap machine? No Do you use an oxygen tank at home? No Do you use a rescue inhaler more than twice per day? (COPD, severe asthma) No Do you experience breathing problems when you lay flat for a period of time? No Do you take prescription narcotic pain medications, including suboxone or methodone? No SCHEDULING CONFIRMATIONS: Please note any and all parts of your conversation with the patient here. We offer all new patients an opportunity to have an appointment with one of our associate care providers to learn more about your upcoming procedure, ask questions and get answers. These appointmentsare offered via telehealth. Would you be interested in scheduling this appointment? (Only ask if NEW referral patient; skip this question if [facility] GI provider ordered the procedure.) No Is there any other information or concerns you would like to us to share with your care team in relation to your upcoming scheduled procedure? No You must have a responsible constitution party who will drive you to your procedure, stay on campus for the entire duration of your procedure, and drive you home from your procedure. Who will likely be your van driver helper for the procedure? *Please Verify the height and weight, and adjust if height and/or weight have changed* Estimated body mass index is 27.7 kg/m?? as calculated from the following: Height as of 03/06/23: 166.4 cm (5' 5.5). Weight as of 03/06/23: 76.7 kg (169 lb). Age:63 y.o. documented in this encounter Plan of Treatment Upcoming Encounters Date Type Department Care Team (Late st Contact Info) Description 04/19/2024 10:00 AM EDT Hospital Encounter Non-Invasive [place] [address] Arrived 04/29/2024 9:50 AM EDT Appointment MRI at [address] Luis Alfredo Velazquez MD [facility] [place] [address] 04/29/2024 9:50 AM EDT Appointment MRI at [place] [address] Luis Alfredo Velazquez MD [facility] [place] [address] 06/07/2024 2:30 PM EDT TH Visit (TeleHealth) Gastroenterology at [address] Dajuan Rachel MD [facility] [place] [address] 07/02/2024 2:00 PM EDT Appointment Non-Invasive Cardiology Lab [place] [phone] Luis Alfredo Velazquez MD [facility] [place] [address] 07/02/2024 4:40 PM EDT Office Visit Cardiology at [address] [phone] Luis Alfredo Velazquez MD [facility] [place] [address] documented as of this encounter Visit Diagnoses Not on filedocumented in this encounter Care Teams Library Helper Relationship Specialty Start Date End Date Marcio Devlin DO [address] [place] [address] PCP - General Family Medicine 11/11/17 documented as of this encounter
--- OUTSIDE RECORDS SUMMARY | 2024-04-08 02:26 | XMS_ITS | Encounter Summary ---
Author Organization [facility] [place] [address] Care Team Providers Care Chief Executive Name Role Phone Marcio Devlin DO Primary Care Provider [phone] Encounter Details Date Type Department Care Team (Latest Contact Info) Description 10/06/2023 Travel Social History Tobacco Use Types Packs/Day Years Used Date Smoking Tobacco: Never Smokeless Tobacco: Never Alcohol Use Standard Drinks/Week Comments Yes 0 (1 standard drink = 0.6 oz pure alcohol) once every couple of months or less Overall Financial Resource Strain (CARDIA) Answe r [...] in a care home (including now)? No 05/03/2022 Sex and Gender Information Value Date Recorded Sex Assigned at Female 07/21/2021 4:56 PM EDT Gender Identity Female 07/21/2021 4:56 PM EDT Sexual Orientation Straight 07/21/2021 4: 56 PM EDT documented as of this encounter Plan of Treatment Upcoming Encounters Date Type Department Care Team (Late st Contact Info) Description 04/19/2024 10:00 AM EDT Hospital Encounter Non-[place] [address] Arrived 04/29/2024 9:50 AM EDT Appointment MRI at [place] [address] Luis Alfredo Velazquez MD [facility] [place] [address] 04/29/2024 9:50 AM EDT Appointment MRI at [place] [phone] Luis Alfredo Velazquez MD [facility] [place] [address] 06/07/2024 2:30 PM EDT TH Visit (TeleHealth) Gastroenterology at [place] [phone] Dajuan Rachel MD [facility] [place] [address] 07/02/2024 2:00 PM EDT Appointment Non-[place] [address] Luis Alfredo Velazquez MD [facility] [place] [address] 07/02/2024 4:40 PM EDT Office Visit Cardiology at [address] [phone] Luis Alfredo Velazquez MD [facility] [place] [address] documented as of this encounter Visit Diagnoses Not on filedocumented in this encounter Care Teams Chief Executive Relationship Specialty Start Date End Date Marcio Devlin DO [address] [place] [address] PCP - General Family Medicine 11/11/17 documented as of this encounter
--- OUTSIDE RECORDS SUMMARY | 2024-04-08 02:26 | XMS_ITS | Encounter Summary ---
Author Organization [facility] Address [facility] [place] [address] Care Team Providers Care Radio Communications Superintendent Name Role Phone Marcio Devlin DO Primary Care Provider [phone] Reason for Visit * Auth/Cert (Routine) Specialty Diagnoses / Procedures Referred By Contac t Referred To Contact Diagnoses Complete heart block Bradycardia Procedures EMERGENCY AMARILISI Elle Tristan MD [facility] [place] [address] [facility] Referral ID Status Reason Start Date Expiration Date Visits Re quested Visits Authorized [id number] 1 1 Encounter Details Date Type Department Care Team (Late st Contact Info) Description 10/21/2023 1:00 PM EST - 10/21/2023 3:30 PM EST Surgery Electrophysiology Lab at [facility] [place] [address] Dilip Berumen MD [facility] [place] [id number] ELECTROPHYSIOLOGY PROCEDURE Social History Tobacco Use Types Packs/Day Years Used Date Smoking Tobacco: Never Smokeless Tobacco: Never Alcohol Use Standard Drinks/Week Comments Yes 0 (1 standard drink = 0.6 oz pure alcohol) once every couple of months or less [facility] Utilities Answer Date Recorded In [...] place to sleep or slept in a jail (including now)? No 10/21/2023 DH IPV Inpatient [...] Sign Reading Time Taken Comments Blood Pressure 108/47 10/21/2023 12:00 PM EST Pulse 33 10/21/2023 12:00 PM EST Temperature 36.4 ??C (97.5 ??F) 10/21/2023 8:00 AM ES T Respiratory Rate 24 10/21/2023 12:00 PM EST Oxygen Saturation 96% 10/21/2023 12:00 PM EST Inhaled Oxygen Concentration - - Weight 77.1 kg (170 lb) 10/20/2023 10:00 AM EST Height 165.1 cm (5' 5) 10/20/2023 10:00 AM EST Body Mass Index 28.29 10/20/2023 10:00 AM EST documented in this encounter Discharge Summaries * Humberto Lynn MD - 10/22/2023 10:19 AM EST Discharge Summary Patient Name: Kim Perez Patient Age: 63 y.o. Language: Algerian Race: White Ethnicity: Not nor Admit date: 10/20/2023 Discharge date and time: 10/22/2023 Attending Physician: Humberto Lynn MD Discharge Physician: Humberto Lynn MD ID: Kim Perez is a 63 y.o. female w/ PMH of ulcerative colitis, ankylosing spondylitis, HTN and HLD who presented to [facility] for symptomatic bradycardia in the setting of complete heart block. Follow-up Recommendations for Providers: PCP: Recommend EKG follow up. Ensure resolution of weakness and fatigue that was associated with symptomatic bradycardia from complete heart block. Cardiology: Follow up in 2 month with MRI and/or PET for evaluation of any underlying cardiac process causing AV block given history ankylosing spondylitis. PCP Contact Information: Marcio Devlin DO [address] [facility] [place] [facility] [place] [address] Pending Studies and Lab Data: none No current labs Discharge Diagnoses (Hospital Problems) and Secondary Diagnoses (Chronic Problems): Active Hospital Problems Diagnosis Complete heart block Resolved Hospital Problems No resolved problems to display. Active Non-Hospital Problems Diagnosis Prediabetes Presence of left artificial hip joint Seborrheic keratoses Trochanteric bursitis of left hip Osteopenia since DXA scan in 1995 (T-score -1.7 at the spine) Recent DXA scan 06/02/19 CLINICAL HISTORY: follow [...] Obesity (BMI 30.0-34.9) History of migraine headaches Markedly improved with metoprolol. Mild asthma Type 2 diabetes mellitus without complication, without long-term current use of insulin RADHA (stress urinary incontinence, female) Urethral caruncle Closed fracture of proximal phalanx of little finger Abnormal blood sugar Otitis externa Migraine Paresthesia MÉNDEZ (nonalcoholic steatohepatitis) Lipid disorder Ankylosing spondylitis Spondylitis and ulcerative colitis. Hypertension GERD (gastroesophageal reflux disease) Peripheral venous insufficiency Ulcerative colitis diagnosed in 1993 with L-sided disease Treated with sulfasalazine 3 g PO qd Colonoscopy 2001 - mild L sided disease Colonoscopy 09/19/08 (Dr. Shady Luz at [facility]) for surveillance for dysplasia. Areas of skip [...] iritis Escalated to weekly Humira 11/2019. ADA ([place]) from 6 q 2wk to 12.7 qwk, as well as BID SSZ Colonoscopy Oct 2019: normal rectum, mod-severe inflammation and narrowing from 6-25 cm from the anus, normal remainder of colon. Path: mild active chronic colitis in ac/tc/dc/sc, severe active colitis with ulceration in proximal rectum Colonoscopy December 2020 - severe involvement of L colon, [id number] involvement of transverse and R colon. Worse compared to last exam. SSA at hepatic flexure Adalimumab level ([place]) was 12.7 Switched to Stelara ( 03/21/21, first infusion dose) d/t Lost of response to Humira. Stopped Uceris and sulfasalazine in January 2021. Mcintosh 09/2022 - tubular featureless L colon with slightly diminished vascular pattern. Histology withmild colitis in sigmoid and inactive in descending. SSA in hep flex. 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 She was brought in by her . Patient reported that over the past couple of weeks she began to feel weak and short of breath. These episodes are primarily related to exertion and would resolve with rest. This past , patient went to her PCP at [facility] internal medicine where she was evaluated for this concern. She was evaluated for COVID, flu, and RSV all of which were negative. Her symptoms however aggressively worsened to this weekend where she had difficulty carrying a laundry basket. When she checked her heart rate at home it was 38. Patient has a inhaler which she occasionally has used increase her heart rate. Upon use of the inhaler her heart rate did not increase. This morning she had difficulty walking between rooms in her house whichwas the final threshold in her determination to present to the emergency department. She denies anysyncope, presyncope, or palpitations. Once in the emergency department, vitals remarkable for BP 135/80, pulse 35, respiratory rate 14, O2 sat 90% on room air. Initial workup remarkable for normal troponin, TSH, and CBC. Creatinine at 1.4 from baseline 1.2. EKG showed complete heart block with junctional escape. Patient was given atropine without improvement and request was made to transfer to [facility] for ongoing care and possible permanent pacemaker evaluation. Upon interview in the [facility], patient resting comfortably in bed without concern. She states that shehas ongoing fatigue and weakness but denies lightheadedness or dizziness. Hospital Course: Kim Perez was admitted to the Hospital Medicine Service on 10/20/2023. The following issues were addressed and she was discharged on 10/22/2023. #Complete Heart Block w/ Narrow Junctional Escape After admission to the [facility], patient's home beta-rosita was discontinued. After evaluation by EP, given history of syncope multiple years ago in the setting of high-dose beta-rosita, we opted to allow for time for beta-rosita washout with glucagon and calcium gluconate. TTE performed on 10/20/2023showing LVEF 67% without wall motion abnormality or valvular disease. After no improvement and complete heart block, on hospital day 2 patient underwent placement of left- sided dual-chamber permanentpacemaker for definitive management of complete heart block. Patient is stable with f/u scheduled with EP team Procedures: Operations: Procedure(s): ELECTROPHYSIOLOGY PROCEDURE Left-sided dual chamber permanent pacemaker - 10/21/2023 Other Major Procedures: None Important Studies and Lab Data: Recent Labs 10/22/23 0241 10/21/23 0604 10/20/23 1340 WBC 9.2 6.8 6.6 HGB 12.9 12.6 12.6 HCT 38.4 38.1 37.4 PLATELET 190 211 228 Recent Labs 10/22/23 0241 10/21/23 0755 10/21/23 0604 10/20/23 1340 NA 142 143 -- 145 K 3.8 4.2 -- 3.9 CL 107 111* -- 110* CO2 23 21* -- 20* BUN 21* 23* -- 23* CREATININE 1.12 1.18 -- 1.04 CALCIUM 9.1 10.1 -- 9.9 MAGNESIUM 0.66* -- 0.70 0.71 PHOS 4.3 -- 4.5 1.6* No results for input(s): BILITOT, BILIDIR, AST, ALT, ALKPHOS in the last 168 hours. No results for input(s): INR, PTT in the last 168 hours. No results for input(s): HA1C in the last 168 hours. No results for input(s): TSH in the last 168 hours. No results for input(s): HDL, LDLCHOL, CHOLHDL, TRIG, CHLPL in the last 168 hours. Microbiology Results (Last 30 days) No results found for the last 720 hours. Imaging: Results for orders placed or performed during the hospital encounter of 10/20/23 XR Chest PA & Lateral (Generic) (Exam End: 10/22/2023 5:34 AM) Impression Dual chamber pacemaker leads in expected position. No pneumothorax. Thank you for letting us participate in the care of this patient. If you are a health care provider and have any questions regarding this report, please contact the number below. For patients who have questions please contact the health progressive care unit registered nurse that requested your imaging first. Electronically signed by: Liang Padilla MD, [facility] ([phone]), at 10/22/2023 8:51 AM XR Chest One View (Exam End: 10/21/2023 8:35 PM) Impression No acute pulmonary findings Thank you for letting us participate in the care of this patient. If you are a health care provider and have any questions regarding this report, please contact the number below. For patients who have questions please contact the health progressive care unit registered nurse that requested your imaging first. Electronically signed by: Liang Padilla MD, [facility] ([phone]), at 10/22/2023 8:45 AM Discharge Conditions/Prognosis: Upon discharge the patientis hemodynamically stable, afebrile, fully ambulatory without requiring supplemental oxygen, holding down food/drink, and pain free controlled with stable oral regimen. Vital Signs: Last value Range last 24 hrs Temperature Temp: 36.3 ??C (97.3 ??F) Temp: [36.3 ??C (97.3 ??F)-36.4 ??C (97.5 ??F)] Heart Rate Heart Rate: 76 Heart Rate: [33-103] Blood Pressure BP: 120/59 BP: (108-147)/(47-68) Respiratory Rate Resp: 26 Resp: [13-27] SpO2 SpO2: 99 % SpO2: [96 %-100 %] Exam: Gen: in bed in NAD HEENT: anicteric CV: Regular Rate, and rhythm no mrg Resp: CTAB bl Abd: normal bowel sounds, soft, non-tender to palpation, no rebound or guarding Ext: 2+ distal pulses, no pedal edema Neuro: no focal deficits noted, moves all extremities spontaneously with intact strength and sensation Discharge to: home without services or rehab Discharge Medications: Your Medications Continued medications, unchanged Dose Details Asmanex HFA 200 mcg/actuation HFA Aerosol Inhaler Inhale 1 puff into the lungs daily. Generic drug: mometasone 1 puff Refills: 0 aspirin EC 81 mg EC (DR) tablet Take 81 mg by mouth daily. 81 mg Refills: 0 Calcium Carbonate-Vitamin D2 600 mg calcium- 200 unit Tablet Take 1,200 mg by mouth 2 times daily. 1,200 mg Refills: 0 cholecalciferol 1,000 unit tablet Commonly known as: Vitamin D3 Take by mouth daily. Refills: 0 clindamycin 1 % Lotion Commonly known as: CLEOCIN T Apply to affected areas on abdomen twice daily for ten days. Quantity: 60 mL Refills: 0 fexofenadine 180 mg tablet Commonly known as: Pricilla Take 180 mg by mouth daily. 180 mg Refills: 0 fish oil-omega-3 fatty acids 1,000 mg capsule Commonly known as: Fish Oil Take 2 g by mouth daily. 2 g Refills: 0 folic acid 1 mg tablet Commonly known as: Vitamin B9 1 MG = 1 Tablet(s), PO, Once daily Refills: 0 losartan 50 mg tablet Commonly known as: Cozaar Take 50 mg by mouth daily. 50 mg Refills: 0 magnesium oxide 400 mg (241.3 mg magnesium) Tablet Commonly known as: Mag-Ox Take 400 mg by mouth 2 times daily. 400 mg Refills: 0 metFORMIN 500 mg tablet Commonly known as: Glucophage Take 500 mg by mouth 2 times daily. 500 mg Refills: 3 multivitamin Tablet Commonly known as: THERAGRAN Refills: [address] capsule Commonly known as: PriLOSEC Take 40 mg by mouth daily. 40 mg Refills: 0 ProAir HFA 90 mcg/actuation HFA Aerosol Inhaler as needed. Generic drug: albuteroL Refills: 0 simvastatin 10 mg tablet Commonly known as: Zocor Take 10 mg by mouth nightly. 10 mg Refills: 0 SUMAtriptan 20 mg/actuation [place], Non-Aerosol Commonly known as: IMITREX 1 spray as needed. 1 spray Refills: 0 topiramate 50 mg XR 24 hr sprinkle capsule Commonly known as: Qudexy XR TAKE ONE CAPSULE BY MOUTH TWICE A DAY Refills: 3 upadacitinib 15 mg ER 24 hr tablet Commonly known as: Rinvoq Take 1 tablet by mouth daily. 15 mg Quantity: 30 tablet Refills: 3 Vitamin C 1,000 mg tablet 1000MG, PO, Once daily Generic drug: ascorbic acid (vitamin C) Refills: 0 STOPPED Medications cyclobenzaprine 5 mg tablet Commonly known as: Flexeril hydroCHLOROthiazide 12.5 mg tablet Commonly known as: Hydrodiuril metoprolol succinate XL 50 mg ER 24 hr tablet Commonly known as: Toprol-XL triamcinolone 0.1 % Cream Commonly known as: Kenalog Updated Allergies/ADRs: Allergies Allergen Reactions Ibuprofen chest pains, Patient reported Celebrex [Celecoxib] Rash Lodine [Etodolac] Itching Amoxicillin-Pot Clavulanate Nausea And Vomiting Nausea/Vomiting, patient reported Cephalexin Nausea And Vomiting Nausea/Vomiting, Patient reported Doxycycline Nausea And Vomiting Nausea/Vomiting, Patient reported Instructions Given to Patient at Discharge: Patient Instructions Instructions on Discharge to Home Why you were hospitalized - You was hospitalized du to feeling lightheaded and dizzy. It was found out that your heart rate was low. Your metoprolol was held but your heart rate did not recover and apacemaker was placed to control your heart rate. Your heart rate recovered and the pacemaker is working efficiently without error. You are stable for discharge with medication regiment as listed below. You have follow up with the electrophysiology team scheduled as listed below. Call your doctor or seek medical attention if you develop the following - chest pain, shortness of breath, feeling dizzy upon standing, passing out, diarrhea, constipation lasting longer than 2 days,fevers (temperature over 100.3), chills, abdominal pain, vomiting, difficulty or discomfort when urinating, bloody or black bowel movements, or any other acute or concerning symptom. Activity level - - Do not raise your elbow on the operated side above the shoulder - Do not lift greater than 7 pounds (equal to a gallon of milk) on the operated side - Do not fully extend this arm in any direction away from the torso - You may use your arm on the operated side, but do not make extreme movement (such as stretching or reaching for a heavy object) Diet - No change in previous diet Driving - As before hospitalization Shower/Bath - - Do not shower for 24 hours after implant - While in the shower, turn your back to the water nozzle so you avoid direct water pressure on thewound. Continue this for 7-10 days. - After 24 hours, you may wash the wound gently with soap and water (unless there is DermaBond on the incision - see below) - Do not submerge the incision (bathtubs, hot tubs, or swimming) for at least two weeks Wound Care - None Home Oxygen therapy - not indicated Your Discharge Medication List Your Medications UNREVIEWED medications - Discuss With Your Provider Dose Details Asmanex HFA 200 mcg/actuation HFA Aerosol Inhaler Inhale 1 puff into the lungs daily. Generic drug: mometasone 1 puff Refills: 0 aspirin EC 81 mg EC (DR) tablet Take 81 mg by mouth daily. 81 mg Refills: 0 Calcium Carbonate-Vitamin D2 600 mg calcium- 200 unit Tablet Take 1,200 mg by mouth 2 times daily. 1,200 mg Refills: 0 cholecalciferol 1,000 unit tablet Commonly known as: Vitamin D3 Take by mouth daily. Refills: 0 clindamycin 1 % Lotion Commonly known as: CLEOCIN T Apply to affected areas on abdomen twice daily for ten days. Quantity: 60 mL Refills: 0 cyclobenzaprine 5 mg tablet Commonly known as: Flexeril Take 1 tablet by mouth 3 times daily as needed for Muscle spasms. 5 mg Quantity: 30 tablet Refills: 1 fexofenadine 180 mg tablet Commonly known as: Pricilla Take 180 mg by mouth daily. 180 mg Refills: 0 fish oil-omega-3 fatty acids 1,000 mg capsule Commonly known as: Fish Oil Take 2 g by mouth daily. 2 g Refills: 0 folic acid 1 mg tablet Commonly known as: Vitamin B9 1 MG = 1 Tablet(s), PO, Once daily Refills: 0 hydroCHLOROthiazide 12.5 mg tablet Commonly known as: Hydrodiuril Take 12.5 mg by mouth daily. 12.5 mg Refills: 0 losartan 50 mg tablet Commonly known as: Cozaar Take 50 mg by mouth daily. 50 mg Refills: 0 magnesium oxide 400 mg (241.3 mg magnesium) Tablet Commonly known as: Mag-Ox Take 400 mg by mouth 2 times daily. 400 mg Refills: 0 metFORMIN 500 mg tablet Commonly known as: Glucophage Take 500 mg by mouth 2 times daily. 500 mg Refills: 3 metoprolol succinate XL 50 mg ER 24 hr tablet Commonly known as: Toprol-XL Take 50 mg by mouth daily. 50 mg Refills: 0 multivitamin Tablet Commonly known as: THERAGRAN Refills: [address] capsule Commonly known as: PriLOSEC Take 40 mg by mouth daily. 40 mg Refills: 0 ProAir HFA 90 mcg/actuation HFA Aerosol Inhaler as needed. Generic drug: albuteroL Refills: 0 simvastatin 10 mg tablet Commonly known as: Zocor Take 10 mg by mouth nightly. 10 mg Refills: 0 SUMAtriptan 20 mg/actuation [place], Non-Aerosol Commonly known as: IMITREX 1 spray as needed. 1 spray Refills: 0 topiramate 50 mg XR 24 hr sprinkle capsule Commonly known as: Qudexy XR TAKE ONE CAPSULE BY MOUTH TWICE A DAY Refills: 3 triamcinolone 0.1 % Cream Commonly known as: Kenalog Apply to affected areas on bilateral forearms twice daily for two weeks, then stop for one week andcontinue as needed for maintenance Quantity: 30 g Refills: 0 upadacitinib 15 mg ER 24 hr tablet Commonly known as: Rinvoq Take 1 tablet by mouth daily. 15 mg Quantity: 30 tablet Refills: 3 Vitamin C 1,000 mg tablet 1000MG, PO, Once daily Generic drug: ascorbic acid (vitamin C) Refills: 0 Follow-up: Future Appointments Date Time Provider Department Center 11/04/2023 11:00 AM Rosemarie Morrow APRN [facility] GASTRO [facility] 01/06/2024 1:00 PM Gabe Fong MD [facility] RHEUM [facility] Your Inpatient Medical Team at [facility] Name(s) of your inpatient provider(s): Humberto Lynn MD Your Primary Care Provider: Marcio Devlin DO [phone] For questions regarding this document or issues relating to this hospitalization on the Medical Service, please contact your inpatient physician through the [facility] Engine Inspector . Issues afterhours and on weekends will be handled by the Hospitalist staff on-call. FINAL ICD/PACEMAKER RECOMMENDATIONS: 1. Standard post implant discharge instructions (see below): 2. Medications as listed above. 3. You may use ice packs over the incision. Make sure to use a cloth folder machine (such as a towel) in between the ice pack and the bare skin and that it stays DRY. 4. Follow up in pacemaker clinic for a wound check and device check. DEVICE CLINIC 1. You will be scheduled for a wound check in the Device Clinic for: ?? Incision check ?? Device interrogation ?? Review of remote follow up and set up of home monitor 2. Your device will be checked every 3 months (either in clinic or by remote). 3. Prior to discharge, you will be given a home monitor so that your device can send clinical data to the device clinic nurses. If you are unable to set this up at home prior to your wound check, we will review this at the time of your appointment NOTE: The device data we review from your home monitor is comparable to an in- office appointment. Therefore, your insurance company will be billed for review of your data. Depending on your coverage,you may be responsible for a portion of his charge. We recommend that you contact your insurance carrier for more details about your particular coverage. WOUND CARE FOR YOUR INCISION: Your wound will usually heal in 7-10 days. Your wound may be tender, it may appear slightly red andbumpy and there may be dry, crusty scabbing. These are all normal. How to Care for your Incision: - Either you or someone with you needs to look at the wound every day. - Report any signs of infection immediately: Drainage Swelling Warmth Increased pain Fevers/chills - Call if you are concerned about infection or the edges of the wound separate - A needle should not be put into the wound area because this can damage the device. You may need to remind your healthcare provider of this concern - There are sutures inside the incision that will dissolve on their own - Do not scratch or rub the wound - Do not apply creams, lotions, or ointments to the incision until is completely healed. - You may cover the wound with gauze if it rubs on clothing and causes discomfort - Protect your wound from injury until the skin has had sufficient time to heal - Do not shower for 24 hours after implant - While in the shower, turn your back to the water nozzle so you avoid direct water pressure on thewound. Continue this for 7-10 days. - After 24 hours, you may wash the wound gently with soap and water (unless there is DermaBond on the incision - see below) - Do not submerge the incision (bathtubs, hot tubs, or swimming) for at least two weeks Your incision has been covered with a Mepilex dressing. - This dressing will stay on for 7 days. - Please remove the dressing on: 10/21/23 - If the edges pull up substantially or fluid gets underneath the Mepilex dressing, remove it sooner - Once removed, you may notice some grayish discoloration. This is normal. Your incision has been closed with: Dermabond - This is a sterile, liquid skin adhesive that holds wound edges together. The film will usually remain in place for a few weeks, then naturally sloughs (falls) off your skin. - Do not scratch, rub, or pick at the Dermabond adhesive film. This may loosen the film before yourwound is healed. - Protect the wound from prolonged exposure to sunlight or tanning lamps while the film is in place - You may occasionally and briefly wet your wound in the shower or bath. Do not soak or scrub your wound, do not swim, and avoid periods of heavy perspiration until the Dermabond adhesive has naturally fallen off. After showering or bathing, gently blot your wound dry with a soft towel CALL IMMEDIATELY: If you develop chest pain, shortness of breath, bleeding, discharge from the incision, opening of the incision and/or fever/temperature >100 degrees F. The office scheduling phone number is [phone]. ARM MOVEMENT RESTRICTIONS POST-IMPLANT For 4-6 Weeks: - Do not raise your elbow on the operated side above the shoulder - Do not lift greater than 7 pounds (equal to a gallon of milk) on the operated side - Do not fully extend this arm in any direction away from the torso - You may use your arm on the operated side, but do not make extreme movement (such as stretching or reaching for a heavy object) If you have any questions or concerns about this product, please call the device clinic at [phone]. General Instructions None Future Appointments and Orders Future Appointments and Orders Future Appointments Provider Department Dept Phone 11/04/2023 11:00 AM Rosemarie Morrow APRN Gastroenterology at [facility] Arrive at: Home [phone] To view instructions for your video visit, click here, or visit this website: [email or web address] If you have not previously downloaded the [facility] patient portal software, Lithera, or the Mango-Mate maria c, please do so by clicking one of these links below or searching in your device's maria c store. For all desktops/laptops; for Android devices; for Apple/[employer] devices Please test your camera and microphone prior to your video visit. FAQs: Join Video Visit button not connecting? - This may be due to pop-up blockers. - Click this link to see: How to Disable Pop-Up Block for [facility] Video Visits Zoom asking for a meeting password? - Exit out of the Zoom program and try the link again 11/04/2023 1:00 PM Lorri Mckinney PA Cardiology at [facility] Arrive at: Body Press Operator Area 4A [phone] 01/06/2024 1:00 PM Gabe oFng MD Rheumatology at [facility] Arrive at: Body Press Operator Area 5C [phone] Inpatient Provider Contact Information: Clarence Pearl MD Internal Medicine, PGY-1 Discharge References/Attachments: Discharge References/Attachments None documented in this encounter Discharge Instructions * Patient Instructions* Clarence Pearl MD - 10/21/2023 12:56 PM EST Instructions on Discharge to Home Why you were hospitalized - You was hospitalized du to feeling lightheaded and dizzy. It was found out that your heart rate was low. Your metoprolol was held but your heart rate did not recover and apacemaker was placed to control your heart rate. Your heart rate recovered and the pacemaker is working efficiently without error. You are stable for discharge with medication regiment as listed below. You have follow up with the electrophysiology team scheduled as listed below. Call your doctor or seek medical attention if you develop the following - chest pain, shortness of breath, feeling dizzy upon standing, passing out, diarrhea, constipation lasting longer than 2 days,fevers (temperature over 100.3), chills, abdominal pain, vomiting, difficulty or discomfort when urinating, bloody or black bowel movements, or any other acute or concerning symptom. Activity level - - Do not raise your elbow on the operated side above the shoulder - Do not lift greater than 7 pounds (equal to a gallon of milk) on the operated side - Do not fully extend this arm in any direction away from the torso - You may use your arm on the operated side, but do not make extreme movement (such as stretching or reaching for a heavy object) Diet - No change in previous diet Driving - As before hospitalization Shower/Bath - - Do not shower for 24 hours after implant - While in the shower, turn your back to the water nozzle so you avoid direct water pressure on thewound. Continue this for 7-10 days. - After 24 hours, you may wash the wound gently with soap and water (unless there is DermaBond on the incision - see below) - Do not submerge the incision (bathtubs, hot tubs, or swimming) for at least two weeks Wound Care - None Home Oxygen therapy - not indicated Your Discharge Medication List Your Medications UNREVIEWED medications - Discuss With Your Provider Dose Details Asmanex HFA 200 mcg/actuation HFA Aerosol Inhaler Inhale 1 puff into the lungs daily. Generic drug: mometasone 1 puff Refills: 0 aspirin EC 81 mg EC (DR) tablet Take 81 mg by mouth daily. 81 mg Refills: 0 Calcium Carbonate-Vitamin D2 600 mg calcium- 200 unit Tablet Take 1,200 mg by mouth 2 times daily. 1,200 mg Refills: 0 cholecalciferol 1,000 unit tablet Commonly known as: Vitamin D3 Take by mouth daily. Refills: 0 clindamycin 1 % Lotion Commonly known as: CLEOCIN T Apply to affected areas on abdomen twice daily for ten days. Quantity: 60 mL Refills: 0 cyclobenzaprine 5 mg tablet Commonly known as: Flexeril Take 1 tablet by mouth 3 times daily as needed for Muscle spasms. 5 mg Quantity: 30 tablet Refills: 1 fexofenadine 180 mg tablet Commonly known as: Pricilla Take 180 mg by mouth daily. 180 mg Refills: 0 fish oil-omega-3 fatty acids 1,000 mg capsule Commonly known as: Fish Oil Take 2 g by mouth daily. 2 g Refills: 0 folic acid 1 mg tablet Commonly known as: Vitamin B9 1 MG = 1 Tablet(s), PO, Once daily Refills: 0 hydroCHLOROthiazide 12.5 mg tablet Commonly known as: Hydrodiuril Take 12.5 mg by mouth daily. 12.5 mg Refills: 0 losartan 50 mg tablet Commonly known as: Cozaar Take 50 mg by mouth daily. 50 mg Refills: 0 magnesium oxide 400 mg (241.3 mg magnesium) Tablet Commonly known as: Mag-Ox Take 400 mg by mouth 2 times daily. 400 mg Refills: 0 metFORMIN 500 mg tablet Commonly known as: Glucophage Take 500 mg by mouth 2 times daily. 500 mg Refills: 3 metoprolol succinate XL 50 mg ER 24 hr tablet Commonly known as: Toprol-XL Take 50 mg by mouth daily. 50 mg Refills: 0 multivitamin Tablet Commonly known as: THERAGRAN Refills: [address] capsule Commonly known as: PriLOSEC Take 40 mg by mouth daily. 40 mg Refills: 0 ProAir HFA 90 mcg/actuation HFA Aerosol Inhaler as needed. Generic drug: albuteroL Refills: 0 simvastatin 10 mg tablet Commonly known as: Zocor Take 10 mg by mouth nightly. 10 mg Refills: 0 SUMAtriptan 20 mg/actuation [place], Non-Aerosol Commonly known as: IMITREX 1 spray as needed. 1 spray Refills: 0 topiramate 50 mg XR 24 hr sprinkle capsule Commonly known as: Qudexy XR TAKE ONE CAPSULE BY MOUTH TWICE A DAY Refills: 3 triamcinolone 0.1 % Cream Commonly known as: Kenalog Apply to affected areas on bilateral forearms twice daily for two weeks, then stop for one week andcontinue as needed for maintenance Quantity: 30 g Refills: 0 upadacitinib 15 mg ER 24 hr tablet Commonly known as: Rinvoq Take 1 tablet by mouth daily. 15 mg Quantity: 30 tablet Refills: 3 Vitamin C 1,000 mg tablet 1000MG, PO, Once daily Generic drug: ascorbic acid (vitamin C) Refills: 0 Follow-up: Future Appointments Date Time Provider Department Center 11/04/2023 11:00 AM Rosemarie Morrow APRN [facility] GASTRO [facility] 01/06/2024 1:00 PM Gabe Fong MD [facility] RHEUM [facility] Your Inpatient Medical Team at [facility] Name(s) of your inpatient provider(s): Humberto Lynn MD Your Primary Care Provider: Marcio Devlin DO [phone] For questions regarding this document or issues relating to this hospitalization on the Medical Service, please contact your inpatient physician through the [facility] Engine Inspector . Issues afterhours and on weekends will be handled by the Hospitalist staff on-call. FINAL ICD/PACEMAKER RECOMMENDATIONS: 1. Standard post implant discharge instructions (see below): 2. Medications as listed above. 3. You may use ice packs over the incision. Make sure to use a cloth folder machine (such as a towel) in between the ice pack and the bare skin and that it stays DRY. 4. Follow up in pacemaker clinic for a wound check and device check. DEVICE CLINIC 1. You will be scheduled for a wound check in the Device Clinic for: ?? Incision check ?? Device interrogation ?? Review of remote follow up and set up of home monitor 2. Your device will be checked every 3 months (either in clinic or by remote). 3. Prior to discharge, you will be given a home monitor so that your device can send clinical data to the device clinic nurses. If you are unable to set this up at home prior to your wound check, we will review this at the time of your appointment NOTE: The device data we review from your home monitor is comparable to an in- office appointment. Therefore, your insurance company will be billed for review of your data. Depending on your coverage,you may be responsible for a portion of his charge. We recommend that you contact your insurance carrier for more details about your particular coverage. WOUND CARE FOR YOUR INCISION: Your wound will usually heal in 7-10 days. Your wound may be tender, it may appear slightly red andbumpy and there may be dry, crusty scabbing. These are all normal. How to Care for your Incision: - Either you or someone with you needs to look at the wound every day. - Report any signs of infection immediately: Drainage Swelling Warmth Increased pain Fevers/chills - Call if you are concerned about infection or the edges of the wound separate - A needle should not be put into the wound area because this can damage the device. You may need to remind your healthcare provider of this concern - There are sutures inside the incision that will dissolve on their own - Do not scratch or rub the wound - Do not apply creams, lotions, or ointments to the incision until is completely healed. - You may cover the wound with gauze if it rubs on clothing and causes discomfort - Protect your wound from injury until the skin has had sufficient time to heal - Do not shower for 24 hours after implant - While in the shower, turn your back to the water nozzle so you avoid direct water pressure on thewound. Continue this for 7-10 days. - After 24 hours, you may wash the wound gently with soap and water (unless there is DermaBond on the incision - see below) - Do not submerge the incision (bathtubs, hot tubs, or swimming) for at least two weeks Your incision has been covered with a Mepilex dressing. - This dressing will stay on for 7 days. - Please remove the dressing on: 10/21/23 - If the edges pull up substantially or fluid gets underneath the Mepilex dressing, remove it sooner - Once removed, you may notice some grayish discoloration. This is normal. Your incision has been closed with: Dermabond - This is a sterile, liquid skin adhesive that holds wound edges together. The film will usually remain in place for a few weeks, then naturally sloughs (falls) off your skin. - Do not scratch, rub, or pick at the Dermabond adhesive film. This may loosen the film before yourwound is healed. - Protect the wound from prolonged exposure to sunlight or tanning lamps while the film is in place - You may occasionally and briefly wet your wound in the shower or bath. Do not soak or scrub your wound, do not swim, and avoid periods of heavy perspiration until the Dermabond adhesive has naturally fallen off. After showering or bathing, gently blot your wound dry with a soft towel CALL IMMEDIATELY: If you develop chest pain, shortness of breath, bleeding, discharge from the incision, opening of the incision and/or fever/temperature >100 degrees F. The office scheduling phone number is [phone]. ARM MOVEMENT RESTRICTIONS POST-IMPLANT For 4-6 Weeks: - Do not raise your elbow on the operated side above the shoulder - Do not lift greater than 7 pounds (equal to a gallon of milk) on the operated side - Do not fully extend this arm in any direction away from the torso - You may use your arm on the operated side, but do not make extreme movement (such as stretching or reaching for a heavy object) If you have any questions or concerns about this product, please call the device clinic at [phone]. documented in this encounter Medications at Time of Discharge Medication Sig Dispensed Refills Start Date End Date clindamycin (CLEOCIN T) 1 % LotionIndications:Folli culitis Apply to affected areas on abdomen twice daily for ten days. 60 mL 10/22/2023 Asmanex HFA 200 mcg/actuation HFA Aerosol Inhaler Inhale 1 puff into the lungs daily. 07/12/2023 fish oil-omega-3 fatty acids 1,000 mg Capsule Take 2 g by mouth daily. cholecalciferol, Vitamin D3, (Vitamin D3) 1,000 unit Tablet Take by mouth daily. fexofenadine (PRICILLA) 180 mg Tablet Take 180 mg by mouth daily. PROAIR HFA 90 mcg/actuation HFA Aerosol Inhaler as needed. 07/20/2018 topiramate 50 mg capsule,sprinkle,ER 24hr TAKE ONE CAPSULE BY MOUTH TWICE A DAY 3 08/25/2018 aspirin 81 mg Tablet, Delayed Release (E.C.) Take 81 mg by mouth daily. SUMAtriptan (IMITREX) 20 mg/actuation [place], Non-Aerosol 1 spray as needed. 11/03/2017 metFORMIN [...] mg tablet 1000MG, PO, Once daily 10/15/2010 upadacitinib (Rinvoq) 15 mg ER 24 hr tablet Take 1 tablet by mouth daily. 30 tablet 3 07/08/2023 10/27/2023 simvastatin (ZOCOR) 10 mg Tablet Take 10 mg by mouth nightly. 11/26/2023 losartan (COZAAR) 50 mg Tablet Take 100 mg by mouth daily. 11/26/2023 documented as of this encounter Progress Notes * Carlos Arias MD - 10/21/2023 7:48 AM EST STAFF PROGRESS NOTE Critical Care Medicine Author: CARLOS ARIAS MD Patient seen and examined on critical care rounds. Kim Perez is a 63 y.o. female with the following active issues:: 63 year old with no knownprior conduction disease, no known prior inflammatory cardiac disease, and no tick exposures comingin with symptomatic CHB. Events She took metoprolol yesterday which was reversed. Active Hospital Problems Diagnosis Complete heart block Resolved Hospital Problems No resolved problems to display. ASSESSMENT, MANAGEMENT, and DECISION MAKING: Complete heart block. After 24 hours of observation she remains bradycardic with an adequate blood pressure. Perfusion adequate with urine output. Maintain continuous telemetry NPO Pacemaker today TTE yesterday reviewed EXAM: Physical Exam No distress Chest clear Cor rrr Abd soft Ext warm Last value Range last 24 hrs Temperature Temp: 36.7 ??C (98.1 ??F) Temp: [36.3 ??C (97.3 ??F)-36.7 ??C (98.1 ??F)] Heart Rate Heart Rate: (!) 33 Heart Rate: [29-40] Blood Pressure BP: 115/54 BP: (98-216)/(42-67) Respiratory Rate Resp: 13 Resp: [8-21] SpO2 SpO2: 99 % SpO2: [95 %-100 %] Art BP BP (Arterial Line): -- Last Ht 10/20/23 165.1 cm (5' 5) Last Wt 10/20/23 77.1 kg (170 lb) Body mass index is 28.29 kg/m??. Last wbc, hgb, hct plt Recent Labs 10/21/23 0604 WBC 6.8 HGB 12.6 HCT 38.1 Last 3 Lytes Recent Labs 10/21/23 0755 10/20/23 1340 NA 143 145 K 4.2 3.9 CL 111* 110* CO2 21* 20* BUN 23* 23* CREATININE 1.18 1.04 Last 3 LFTs Recent Labs 06/27/23 1440 AST 23 ALT 26 ALKPHOS 135* BILITOT 0.3 Last Ca, Mg, Phos Recent Labs 10/21/23 0755 10/21/23 0604 CALCIUM 10.1 -- PHOS -- 4.5 MAGNESIUM -- 0.70 Last 3 Coags No results for input(s): PT, INR, PTT in the last 168 hours. Last 3 ProBNP, Trop, CK No results for input(s): CK, TROPONINT, PROBNP in the last 168 hours. IS PATIENT CRITICALLY ILL ? Is there a high potential of sudden, clinically significant, or life threatening deterioration? Yes Is there a need for direct personal assessment and management to treat/prevent multiple vital organfailure/deterioration? Yes PATIENT IS CRITICALLY ILL WITH THESE DIAGNOSES BEING MANAGED BY [facility] TEAM: Arrhythmia Bradycardia I personally performed 35 minutes of aggregate critical care time exclusive of procedures and teaching. This includes time spent during direct patient evaluation and reassessment, interpreting diagnostic tests, directing life and/or organ supporting interventions and documentation on the unit. CARLOS ARIAS MD 10/21/2023 * Ruben, Glenn uCevas MD - 10/21/2023 7:01 AM EST Images from the original note were not included. Cardiology ICU Progress Note Patient info: Name: Kim Perez : 1960 PCP: Marcio Devlin DO PCP phone number: [phone] Date of Admission: 10/20/2023 ( Hospital Day 1 day ) Attending:Glenn Miranda MD ID: Kim Perez is a 63 y.o. female w/ PMH of ulcerative colitis, ankylosing spondylitis, HTN, prediabetes and HLD on Hospital Day0 for evaluation of lightheadedness and shortness of breath. 24 Hour Events/Subjective: Yesterday: - EP evaluation for permanent pacemaker, potentially to be placed 10/21/23 - BB washout with calcium gluconate and glucagon -- Overnight: - NAEON -- This AM: - Awake and alert, no new concerns today. Remains weak, fatigued. Some mild musculoskeletal low back pain 2/2 hospital bed discomfort. -- Objective: Vitals Last value Range last 24 hrs Temperature Temp: 36.4 ??C (97.5 ??F) Temp: [36.3 ??C (97.3 ??F)-36.7 ??C (98.1 ??F)] Heart Rate Heart Rate: (!) 35 Heart Rate: [29-40] Blood Pressure BP: 140/65 BP: (98-216)/(42-67) Art Line BP BP (Arterial Line): -- MAP (NBP): [57 mmHg-102 mmHg] Respiratory Rate Resp: 19 Resp: [8-21] SpO2 SpO2: 100 % SpO2: [95 %-100 %] Oxygen Delivery Oxygen Therapy O2 Device: None (Room air) Reason for Oxygen: Patient currently on room air Intake/Output Summary (Last 24 hours) at 10/21/2023 0904 Last data filed at 10/21/2023 0800 Gross per 24 hour Intake 1150 ml Output 825 ml Net 325 ml Patient Vitals for the past 168 hrs: Weight 10/20/23 1000 77.1 kg (170 lb) Admit wt: 77.11 kg Physical Exam: Gen: in bed in NAD HEENT: anicteric, EOMI intact, CV: Bradycardic, no mrg Resp: CTAB bl Abd: normal bowel sounds, soft, non-tender to palpation, no rebound or guarding Ext: 2+ distal pulses, no pedal edema Neuro: no focal deficits noted, moves all extremities spontaneously Lines/Drains/Airways Lines: PIV 10/20/23899 20 gauge median cubital vein (antecubital fossa), right (Active) Indication/Daily Review of Necessity medication therapy intermittent 10/20/231999 Site Preparation/Maintenance dressing: dry and intact 10/21/23599 Securement catheter stabilization device, secured with 10/20/231999 Patency/Maintenance infusing 10/20/231999 Phlebitis 0-->no symptoms 10/21/23599 Infiltration 0-->no symptoms 10/21/23599 Site Signs/Symptoms no redness;no swelling;no warmth;no pain;no palpable cord;no streak formation;no drainage 10/20/231999 PIV 10/20/23899 20 gauge median cubital vein (antecubital fossa), left (Active) Indication/Daily Review of Necessity fluid therapy intermittent;medication therapy intermittent 10/20/231999 Site Preparation/Maintenance dressing: dry and intact 10/21/23599 Securement catheter stabilization device, secured with 10/20/231999 Patency/Maintenance flushed without difficulty 10/20/231999 Phlebitis 0-->no symptoms 10/21/23599 Infiltration 0-->no symptoms 10/21/23599 Site Signs/Symptoms no redness;no swelling;no warmth;no pain;no palpable cord;no drainage;no streakformation 10/20/231999 Labs: Recent Labs 10/21/2360310/20/23 1340 WBC 6.8 6.6 HGB 12.6 12.6 HCT 38.1 37.4 PLATELET 211 228 MCV 93.8 91.7 Recent Labs 10/21/23 0755 10/21/2360310/20/23 1340 NA 143 -- 145 CL 111* -- 110* CO2 21* -- 20* K 4.2 -- 3.9 MAGNESIUM -- 0.70 0.71 PHOS -- 4.5 1.6* CALCIUM 10.1 -- 9.9 BUN 23* -- 23* CREATININE 1.18 -- 1.04 LFTs No results for input(s): PROT, ALBUMIN, AST, ALT, ALKPHOS, BILITOT, BILIDIR in the last 168 hours. Coags No results for input(s): INR, PT, PTT, FIBRINOGEN, DDIMER in the last 168 hours. Invalid input(s): THROMBIN TIME Cardiac Enzymes No results for input(s): CK, TROPONINT, PROBNP in the last 168 hours. Endocrine No results for input(s): TSH, CORTISOL in the last 7068 hours. Invalid input(s): [id number] Recent Labs 10/21/23 0754 10/20/23 2106 10/20/23 1650 POCGLU 107 116 94 Microbiology: Microbiology Results (Last 30 days) No results found for the last 720 hours. Imaging: No results found for this visit on 10/20/23. Medications Scheduled Meds: aspirin EC 81 mg Oral Daily insulin lispro 1-4 Units Subcutaneous TID AC insulin lispro 0-8 Units Subcutaneous TID WC sodium chloride 0.9 % (flush) 5 mL Intravenous BID Continuous Infusions: PRN Meds:.glucose 40% oral geL OR dextrose OR glucagon, sodium chloride 0.9 % (flush), lidocaine, nitroGLYcerin, magnesium oxide, potassium phosphate Assessment & Plan: Kim Perez is a 63 y.o. female w/ PMH of ulcerative colitis, ankylosing spondylitis, HTN and HLD on HD# 0 for symptomatic bradycardia in the setting of complete heart block. 10/21/23: Given lack of improvement in symptomatic bradycardia and complete heart block after beta-blockade washout, plan to move ahead with left-sided dual-chamber permanent pacemaker placement. Procedure currently planned for 3 PM. Per EP, patient will require 2-month follow-up with MRI and/or PET scan in order to evaluate for cause of heart block. Patient was initially prescribed metoprolol for management of her hypertension and has no ongoing indications for beta-blockade after pacemaker placement. Neuro #NÉSTOR -- Cardiovascular #Complete Heart Block with narrow junctional escape rhythm - Discontinue home beta rosita - S/p glucagon and calcium gluconate w/o improvement - TTE normal 10/20/2023 - Permanent pacemaker to be placed today, scheduled for 3pm #HTN #HLD - Hold home HCTZ and losartan - Hold home simvastatin -- Pulmonary #NÉSTOR -- Renal/Fluid/Electrolytes # Hypomagnesemia # Hypophosphatemia - Lyte repletion prn - Daily BMP -- Gastrointestinal/Metabolic/Nutrition #NÉSTOR Endocrine #Prediabetes - Stop home metformin - SSI -- Autoimmune #Ulcerative Colitis #Ankylosing Spondylitis - Holding Rinvoq Hematology #NÉSTOR -- Infection #NÉSTOR -- #Routine Diet: NPO diet (Give Meds) DVT Prophylaxis: Lovenox GI Prophylaxis: Not indicated Code Status: Attempt Cardiopulmonary Resuscitation - Inpatient Dispo: Pending clinical course Jean Roca DO Internal Medicine, PGY-1 Cardiology, [facility] 10/21/23 9:04 AM Cardiology Attending Attestation/Addendum: Please see Jean Roca DO's note for details of the patient history and data. I have discussed, independently reviewed the pertinent diagnostic information, and agree with the principal findings as documented in the History, Physical Findings, Assessment and Plan of Care. The assessment and plan were formulated in discussion with me. Doing well. PPM today and then transfer to floor service for ongoing care. Glenn Miranda MD, [facility] Staff Bread Icer * Elle Tristan MD - 10/20/2023 1:46 PM EST Cardiovascular Critical Care Attending Note Kim Perez 1960 Age: 63 y.o. PCP: Marcio Devlin DO Date of Service: 10/20/2023 Date of Admission: 10/20/2023 Length of Stay Hospital Day 0 days The patient was seen and examined on critical care rounds. Kim Perez is a 63 y.o. female with the following active issues: Active Hospital Problems Diagnosis Complete heart block Resolved Hospital Problems No resolved problems to display. 63 year old with no known prior conduction disease, no known prior inflammatory cardiac disease, and no tick exposures coming in with symptomatic CHB. She took metoprolol this AM which is being reversed. #Complete Heart Block #Ulcerative Colitis #Ankylosing Spondylitis MEDICATIONS: Scheduled Meds: aspirin EC 81 mg Oral Daily insulin lispro 1-4 Units Subcutaneous TID AC insulin lispro 0-8 Units Subcutaneous TID WC sodium chloride 0.9 % (flush) 5 mL Intravenous BID enoxaparin 40 mg Subcutaneous Nightly glucagon 3 mg Intravenous Once calcium gluconate 1 g Intravenous Once calcium gluconate 1 g Intravenous Once calcium gluconate 1 g Intravenous Once calcium gluconate 1 g Intravenous Once Continuous Infusions: EXAM: Last value Range last 24 hrs Temperature Temp: 36.4 ??C (97.5 ??F) Temp: [36.4 ??C (97.5 ??F)-36.5 ??C (97.7 ??F)] Heart Rate Heart Rate: (!) 40 Heart Rate: [37-40] Blood Pressure BP: 130/61 BP: (130-141)/(56-65) Respiratory Rate Resp: 16 Resp: [8-17] SpO2 SpO2: 100 % SpO2: [99 %-100 %] Art BP BP (Arterial Line): -- Weights: Patient Vitals for the past 168 hrs: Weight 10/20/23 1000 77.1 kg (170 lb) Gen- Lying flat, dyspneic without exertion HEENT- anicteric sclera, neck veins not elevated Chest- equal rise CV- Rrr, slow, nml s1 s2, no mrg Abd- Soft, nt, nd, no guarding Ext- wwp ASSESSMENT, MANAGEMENT, and DECISION MAKING: Symptomatic CHB -Hold all AVN blocking agents -Glucagon and calcium for BB reversal, low threshold to stop these if any side effects -EP consult for pacemaker appreciated, would proceed as if device is needed tomorrow and make NPO at midnight IS THE PATIENT CRITICALLY ILL? Is there a high potential of sudden, clinically significant, or life threatening deterioration? Yes Is there a need for direct personal assessment and management to treat/prevent multiple vital organfailure/deterioration? Yes PATIENT IS CRITICALLY ILL WITH THESE DIAGNOSES BEING MANAGED BY Cardiology team providing critical care services Complete Heart Block-monitoring for need for TVP and pacer. I personally performed 30 minutes of aggregate critical care time exclusive of procedures and teaching. This includes time spent during direct patient evaluation and reassessment, interpreting diagnostic tests, directing life and/or organ supporting interventions and documentation on the unit. Elle Tristan MD 10/20/2023 documented in this encounter H&P Notes * Humberto Lynn MD - 10/21/2023 4:09 PM EST Images from the original note were not included. Cardiovascular Medicine Admission History and Physical Patient Name: Kim Perez Service: Responsible Attending: Glenn Miranda MD PCP: Marcio Devlin DO ID: Kim Perez is a 63 y.o. female w/ PMH of ulcerative colitis, ankylosing spondylitis, HTN, prediabetes and HLD here for evaluation of lightheadedness and shortness of breath, found to be in complete heart block s/p pacemaker placement 10/21/23. History of Present Illness: Per [facility] H&P This patient presented to the emergency department this morning with worsening fatigue and shortness of breath with exertion. She was brought in by her . Patient reported that over the past couple of weeks she began to feel weak and short of breath. These episodes are primarily related to exertion and would resolve with rest. This past , patient went to her PCP at [facility] internal medicine where she was evaluated for this concern. She was evaluated for COVID, flu, and RSV all of which were negative. Her symptoms however aggressively worsened to this weekend where she had difficulty carrying a laundry basket. When she checked her heart rate at home it was 38. Patient has a inhaler which she occasionally has used increase her heart rate. Upon use of the inhaler her heart rate did not increase. This morning she had difficulty walking between rooms in her house whichwas the final threshold in her determination to present to the emergency department. She denies anysyncope, presyncope, or palpitations. Once in the emergency department, vitals remarkable for BP 135/80, pulse 35, respiratory rate 14, O2 sat 90% on room air. Initial workup remarkable for normal troponin, TSH, and CBC. Creatinine at 1.4 from baseline 1.2. EKG showed complete heart block with junctional escape. Patient was given atropine without improvement and request was made to transfer to [facility] for ongoing care and possible permanent pacemaker evaluation. Upon interview in the CVCC, patient resting comfortably in bed without concern. She states that shehas ongoing fatigue and weakness but denies lightheadedness or dizziness. Hospital Course to date After admission to the [facility], patient's home beta-rosita was discontinued. After evaluation by EP, given history of syncope multiple years ago in the setting of high-dose beta-rosita, we opted to allow for time for beta-rosita washout with glucagon and calcium gluconate. TTE performed on 10/20/2023showing LVEF 67% without wall motion abnormality or valvular disease. After no improvement and complete heart block, on hospital day 2 patient underwent placement of left- sided dual-chamber permanentpacemaker for definitive management of complete heart block. On interview today Patient has been having some SOB since coming back from pacemake placement. Denies any chest pain, abdominal pain, palpitations. Beside SOB feeling overall well currently. Review of Systems: as per HPI. Problem List/Past Medical History Patient Active Problem List Diagnosis Complete heart block Prediabetes Presence of left artificial hip joint Seborrheic keratoses Trochanteric bursitis of left hip Osteopenia since DXA scan in 1995 (T-score -1.7 at the spine) Recent DXA scan 06/02/19 CLINICAL HISTORY: follow [...] Obesity (BMI 30.0-34.9) History of migraine headaches Markedly improved with metoprolol. Mild asthma Type 2 diabetes mellitus without complication, without long-term current use of insulin RADHA (stress urinary incontinence, female) Urethral caruncle Closed fracture of proximal phalanx of little finger Abnormal blood sugar Otitis externa Migraine Paresthesia MÉNDEZ (nonalcoholic steatohepatitis) Lipid disorder Ankylosing spondylitis Spondylitis and ulcerative colitis. Hypertension GERD (gastroesophageal reflux disease) Peripheral venous insufficiency Ulcerative colitis diagnosed in 1993 with L-sided disease Treated with sulfasalazine 3 g PO qd Colonoscopy 2001 - mild L sided disease Colonoscopy 09/19/08 (Dr. Shady Luz at [facility]) for surveillance for dysplasia. Areas of skip [...] iritis Escalated to weekly Humira 11/2019. ADA ([place]) from 6 q 2wk to 12.7 qwk, as well as BID SSZ Colonoscopy Oct 2019: normal rectum, mod-severe inflammation and narrowing from 6-25 cm from the anus, normal remainder of colon. Path: mild active chronic colitis in ac/tc/dc/sc, severe active colitis with ulceration in proximal rectum Colonoscopy December 2020 - severe involvement of L colon, [id number] involvement of transverse and R colon. Worse compared to last exam. SSA at hepatic flexure Adalimumab level ([place]) was 12.7 Switched to Stelara ( 03/21/21, first infusion dose) d/t Lost of response to Humira. Stopped Uceris and sulfasalazine in January 2021. Mcintosh 09/2022 - tubular featureless L colon with slightly diminished vascular pattern. Histology withmild colitis in sigmoid and inactive in descending. SSA in hep flex. 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 Meds: Allergies: Allergies Allergen Reactions Ibuprofen chest pains, Patient reported Celebrex [Celecoxib] Rash Lodine [Etodolac] Itching Amoxicillin-Pot Clavulanate Nausea And Vomiting Nausea/Vomiting, patient reported Cephalexin Nausea And Vomiting Nausea/Vomiting, Patient reported Doxycycline Nausea And Vomiting Nausea/Vomiting, Patient reported Vitals: Last value Range last 24 hrs Temperature Temp: 36.3 ??C (97.3 ??F) Temp: [36.3 ??C (97.3 ??F)-36.7 ??C (98.1 ??F)] Heart Rate Heart Rate: 92 Heart Rate: [29-92] Blood Pressure BP: 147/62 BP: (98-216)/(42-67) Respiratory Rate Resp: 15 Resp: [12-24] SpO2 SpO2: 97 % SpO2: [95 %-100 %] Examination: Gen: in bed in NAD HEENT: anicteric CV: Regular Rate, and rhythm no mrg Resp: CTAB bl Abd: normal bowel sounds, soft, non-tender to palpation, no rebound or guarding Ext: 2+ distal pulses, no pedal edema Neuro: no focal deficits noted, moves all extremities spontaneously with intact strength and sensation Laboratory: CBC: Recent Labs 10/21/23 0604 10/20/23 1340 06/27/23 1440 WBC 6.8 6.6 8.65 HGB 12.6 12.6 13.6 PLATELET 211 228 229 Chemistry: Recent Labs 10/21/23 0755 10/20/23 1340 NA 143 145 K 4.2 3.9 CL 111* 110* CO2 21* 20* BUN 23* 23* CREATININE 1.18 1.04 GLUCOSE 114 92 Recent Labs 10/21/23 0755 10/21/23 0604 10/20/23 1340 CALCIUM 10.1 -- 9.9 MAGNESIUM -- 0.70 0.71 PHOS -- 4.5 1.6* LFT's: Recent Labs 06/27/23 1440 BILITOT 0.3 ALBUMIN 3.6 ALKPHOS 135* ALT 26 AST 23 Coags: No results for input(s): PT, INR, PTT, FIBRINOGEN, DDIMER in the last 168 hours. Invalid input(s): THROMBIN TIME Cardiac enzymes: No results for input(s): TROPONINT, CK in the last 7068 hours. Endocrine: No results for input(s): TSH, CORTISOL in the last 7068 hours. Invalid input(s): [id number] Heme: No results for input(s): LDH, HAPTOGLOBIN, URICACID in the last 168 hours. Diagnostic Studies: CXR: pending tomorrow TTE: 10/20 Left ventricular size and systolic function is normal. The left ventricular ejection fraction is 67% by Elliott's biplane. There are no segmental wall motion abnormalities. Right ventricular systolic function is normal. No significant valvular disease. No prior studies for comparison. ASSESSMENT: Kim Perez is a 63 y.o. female w/ PMH of ulcerative colitis, ankylosing spondylitis, HTN and HLD on HD# 0 for symptomatic bradycardia in the setting of complete heart block. 10/21/23: Given lack of improvement in symptomatic bradycardia and complete heart block after beta-blockade washout, left-sided dual-chamber permanent pacemaker placed today. In the EP lab, was notedto have some PVCs, and therefore EP fellow thought to consider adding on low dose BB tomorrow AM ifvitals allow. She is NPO at midnight in event EP team needs to make any changes to pacemaker. Per EP, patient will require 2-month follow-up with MRI and/or PET scan in order to evaluate for cause of heart block. Patient was initially prescribed metoprolol for management of her hypertension and has no ongoing indications for beta-blockade after pacemaker placement. #Complete Heart Block with narrow junctional escape rhythm #PVCs - Discontinue home beta rosita - S/p glucagon and calcium gluconate w/o improvement - TTE normal 10/20/2023 - Permanent pacemaker placed today, - Consider low dose beta blockade in AM - EP team following #HTN #HLD - Hold home HCTZ and losartan - Hold home simvastatin #Ulcerative Colitis #Ankylosing Spondylitis - Holding Rinvoq # Hypomagnesemia # Hypophosphatemia - Lyte repletion prn - Daily BMP Routine: - DVT prophylaxis: - GI prophylaxis: not indicated - Diet: NPO at midnight - Code Status: Full code - Dispo:admit to inpatient cardiology service Clarence Pearl MD PGY-1 Internal Medicine Inpatient cardiology Service Cardiology Staff - Transfer note / Progress Note Addendum This patient was seen and examined on rounds with the S[facility] inpatient cardiology team. I agree with the findings and plan of care per Clarence Pearl MD (medical housestaff) which we discussed. Please refer to his note above for details. * Jean Roca DO - 10/20/2023 2:14 PM EST Images from the original note were not included. Cardiology ICU H&P Patient info: Name: Kim Perez : 1960 PCP: Marcio Devlin DO PCP phone number: [phone] Date of Admission: 10/20/2023 ( Hospital Day 0 days ) Attending:Elle Tristan MD ID: Kim Perez is a 63 y.o. female w/ PMH of ulcerative colitis, ankylosing spondylitis, HTN, prediabetes and HLD on Hospital Day0 for evaluation of lightheadedness and shortness of breath. HPI: This patient presented to the emergency department this morning with worsening fatigue and shortness of breath with exertion. She was brought in by her . Patient reported that over the past couple of weeks she began to feel weak and short of breath. These episodes are primarily related to exertion and would resolve with rest. This past , patient went to her PCP at [facility] internal medicine where she was evaluated for this concern. She was evaluated for COVID, flu, and RSV all of which were negative. Her symptoms however aggressively worsened to this weekend where she had difficulty carrying a laundry basket. When she checked her heart rate at home it was 38. Patient has a inhaler which she occasionally has used increase her heart rate. Upon use of the inhaler her heart rate did not increase. This morning she had difficulty walking between rooms in her house whichwas the final threshold in her determination to present to the emergency department. She denies anysyncope, presyncope, or palpitations. Once in the emergency department, vitals remarkable for BP 135/80, pulse 35, respiratory rate 14, O2 sat 90% on room air. Initial workup remarkable for normal troponin, TSH, and CBC. Creatinine at 1.4 from baseline 1.2. EKG showed complete heart block with junctional escape. Patient was given atropine without improvement and request was made to transfer to [facility] for ongoing care and possible permanent pacemaker evaluation. Upon interview in the CVCC, patient resting comfortably in bed without concern. She states that shehas ongoing fatigue and weakness but denies lightheadedness or dizziness. ROS per HPI PMH Past Medical History: Diagnosis Date Ankylosing spondylitis 02/21/2011 Hypertension Mild asthma 02/24/2018 Type 2 diabetes mellitus without complication, without long-term current use of insulin 02/24/2018 Ulcerative colitis diagnosed in 1993 with L-sided disease Treated with sulfasalazine 3 g PO qd Colonoscopy 2001 - mildL sided disease Colonoscopy 09/19/08 (Dr. Shady Luz at [facility]) for surveillance for dysplasia. Areas of skip inflammation without ulceration in the transverse colon, descending colon, and the rectosigmoid. Upon attempt at retroflexion, a rectal mucosal tear requiring subsequent admission with 10 d PSH Past Surgical History: Procedure Laterality Date CREATED BY INTERFACE COLONOSCOPY WITH BIOPSY Procedure Date: 03/04/1994 CREATED BY INTERFACE COLONOSCOPY-BIOPSY Procedure Date: 06/22/2002 CREATED BY INTERFACE LIVER BIOPSY,ENDOSCOPIC Procedure Date: 04/04/2010 CREATED BY INTERFACE TOTAL HIP ARTHROPLASTY / LEFT/PINNACLE AC/S-ROM ACETA/S-ROM FEMOR Procedure Date: 03/17/2006 ORTHOPEDIC SURGERY THR 2006 PRO COLONOSCOPY, BIOPSY 01/02/2011 COLONOSCOPY FLEXIBLE, WITH BX performed by YAQUELIN ESTRADA at [facility] ENDOSCOPY PRO COLONOSCOPY, BIOPSY N/A 03/04/2017 COLONOSCOPY FLEXIBLE, WITH BX (WRVU 3.66) performed by Raúl Austin MD at [facility] ENDOSCOPY PRO COLONOSCOPY, BIOPSY N/A 11/09/2019 COLONOSCOPY FLEXIBLE, WITH BX (WRVU 3.66) performed by Froilan Sahni MD at [facility] ENDOSCOPY PRO COLONOSCOPY, BIOPSY N/A 12/19/2020 COLONOSCOPY FLEXIBLE, WITH BX (WRVU 3.66) performed by Dajuan Rachel MD at [facility] ENDOSCOPY PRO COLONOSCOPY, BIOPSY N/A 09/24/2022 COLONOSCOPY FLEXIBLE, WITH BX (WRVU 3.66) performed by Dajuan Rachel MD at [facility] ENDOSCOPY PRO COLONOSCOPY, BIOPSY N/A 09/18/2023 COLONOSCOPY FLEXIBLE, WITH BX (WRVU 3.56) performed by Dajuan Rachel MD at [facility] ENDOSCOPY PRO COLONOSCOPY, DIAGNOSTIC N/A 11/09/2019 COLONOSCOPY, DIAGNOSTIC performed by Froilan Sahni MD at [facility] ENDOSCOPY PRO COLONOSCOPY, REMV LESN, SNARE 01/02/2011 COLONOSCOPY, POLYPECTOMY, REMOVAL LESION BY SNARE performed by YAQUELIN ESTRADA at [facility] ENDOSCOPY PRO COLONOSCOPY, REMV LESN, SNARE N/A 03/04/2017 COLONOSCOPY, POLYPECTOMY, REMOVAL LESION BY SNARE (WRVU 4.67) performed by Raúl Austin MD at [facility] ENDOSCOPY PRO COLONOSCOPY, REMV LESN, SNARE N/A 09/24/2022 COLONOSCOPY, POLYPECTOMY, REMOVAL LESION BY SNARE (WRVU 4.67) performed by Dajuan Rachel MD at [facility] ENDOSCOPY PRO COMBINED ANT/POST COLPORRHAPHY W CYSTO N/A 03/10/2018 COLPORRHAPHY ANTERIOR-POSTERIOR; INC CYSTOURETHROSCOPY (WRVU 14.44) performed by Liang Fong MD at [facility] MAIN OR PRO REVAGINAL PROLAPSE, UTEROSACRAL N/A 03/10/2018 COLPOPEXY, VAGINAL, INTRAPERITONEAL APPROACH (WRVU 11.66) [facility] SLING OPER STRES INCONTINENCE N/A 03/10/2018 URETHRAL SUSPENSION, SLING\FASCIA OR SYNTHETIC (WRVU 12.13) performed by Liang Fong MD at [facility] MAIN OR PRO VAG HYST, RMV TUBE/OVARY N/A 03/10/2018 HYSTERECTOMY, VAGINAL, REMOVAL TUBE(S) & OR OVARY(S) (WRVU 15.94) performed by Liang Fong MD at [facility] MAIN OR SALPINGECTOMY XR FLUORO INJECTION DRAINAGE JOINT LG RIGHT Right 03/09/2019 XR Fluoro Guided Joint Injection Large Right 03/09/2019 [facility] RAD XRAY Family History Family History Problem Relation Age of Onset Hypertension Mother Heart Disease Mother Diabetes Mother Heart Disease Father Cancer Father Lung Social History Social History Socioeconomic History Marital status: Spouse [...] at all Food Insecurity: No Food Insecurity (05/03/2022) Hunger Vital Sign Worried About Running Out of Food in the Last Year: Never true Ran Out of Food in the Last Year: Never true Transportation Needs: No Transportation Needs (05/03/2022) PRAPARE - Transportation Lack of Transportation (Medical): No Lack of Transportation (Non-Medical): No Physical Activity: Not on file Intimate Partner Violence: Not on file Housing Stability: Low Risk (05/03/2022) Housing Stability Vital Sign Unable to Pay for Housing in the Last Year: No Number of Places Lived in the Last Year: 1 Unstable Housing in the Last Year: No Allergies: Allergies Allergen Reactions Ibuprofen chest pains, Patient reported Celebrex [Celecoxib] Rash Lodine [Etodolac] Itching Amoxicillin-Pot Clavulanate Nausea And Vomiting Nausea/Vomiting, patient reported Cephalexin Nausea And Vomiting Nausea/Vomiting, Patient reported Doxycycline Nausea And Vomiting Nausea/Vomiting, Patient reported Meds aspirin EC 81 mg Oral Daily insulin lispro 1-4 Units Subcutaneous TID AC insulin lispro 0-8 Units Subcutaneous TID WC sodium chloride 0.9 % (flush) 5 mL Intravenous BID enoxaparin 40 mg Subcutaneous Nightly glucagon 3 mg Intravenous Once calcium gluconate 1 g Intravenous Once calcium gluconate 1 g Intravenous Once calcium gluconate 1 g Intravenous Once calcium gluconate 1 g Intravenous Once glucose 40% oral geL OR dextrose OR glucagon, sodium chloride 0.9 % (flush), lidocaine, nitroGLYcerin Vasoactive & Sedating Medications: Infusions: Continuous Infusions: Objective: Vitals Last value Range last 24 hrs Temperature Temp: 36.4 ??C (97.5 ??F) Temp: [36.4 ??C (97.5 ??F)-36.5 ??C (97.7 ??F)] Heart Rate Heart Rate: (!) 40 Heart Rate: [37-40] Blood Pressure BP: 130/61 BP: (130-141)/(56-65) Art Line BP BP (Arterial Line): -- MAP (NBP): [78 mmHg-86 mmHg] Respiratory Rate Resp: 16 Resp: [8-17] SpO2 SpO2: 100 % SpO2: [99 %-100 %] Oxygen Delivery Oxygen Therapy O2 Device: None (Room air) Ventilator Settings: Mode: , SET RR: TV: PEEP: FiO2: VARIABLES PATIENT RR: PIP: Pplateau: SpO2: OUTPUT Resp: 16 SpO2: 100 % ABG (Arterial Blood Gas) No results for input(s): PHART, TJG0IMU, PO2ART, HTW5LFK, LACTATEVEN, BPU2AFV, PFRATIOART2 in the last 168 hours. VBG (Venous Blood Gas) No results for input(s): PHVEN, HMN6GLB, PO2VEN, DQU8VZA, LACTATEVEN in the last 168 hours. Mixed Venous Sat No results for input(s): Q3KCDI7 in the last 168 hours. Intake/Output Summary (Last 24 hours) at 10/20/2023 1414 Last data filed at 10/20/2023 1200 Gross per 24 hour Intake 0 ml Output 625 ml Net -625 ml Patient Vitals for the past 168 hrs: Weight 10/20/23 1000 77.1 kg (170 lb) Admit wt: 77.11 kg Physical Exam: Gen: in bed in NAD HEENT: anicteric, EOMI intact, CV: Bradycardic, no mrg Resp: CTAB, no crackles/wheezes/ronchi, normal work of breathing Abd: normal bowel sounds, soft, non-tender to palpation, no rebound or guarding Ext: 2+ distal pulses, no pedal edema Neuro: no focal deficits noted, CN II-XII grossly intact, moves all extremities spontaneously Psych: cooperative. Skin: no rashes, lesions, or ulcerations noted Lines/Drains/Airways Lines: PIV 10/20/23 0900 20 gauge median cubital vein (antecubital fossa), right (Active) Indication/Daily Review of Necessity fluid therapy intermittent;medication therapy intermittent 10/20/23 1000 Site Preparation/Maintenance dressing: dry and intact 10/20/23 1000 Securement catheter stabilization device, secured with 10/20/23 1000 Patency/Maintenance flushed without difficulty 10/20/23 1000 Phlebitis 0-->no symptoms 10/20/23 1200 Infiltration 0-->no symptoms 10/20/23 1200 Site Signs/Symptoms no redness;no swelling;no warmth;no pain;no palpable cord;no streak formation;no drainage 10/20/23 1000 PIV 10/20/23 0900 20 gauge median cubital vein (antecubital fossa), left (Active) Indication/Daily Review of Necessity fluid therapy intermittent;medication therapy intermittent 10/20/23 1000 Site Preparation/Maintenance dressing: dry and intact 10/20/23 1000 Securement catheter stabilization device, secured with 10/20/23 1000 Patency/Maintenance flushed without difficulty 10/20/23 1000 Phlebitis 0-->no symptoms 10/20/23 1200 Infiltration 0-->no symptoms 10/20/23 1200 Site Signs/Symptoms no redness;no swelling;no warmth;no palpable cord;no pain;no streak formation;no drainage 10/20/23 1000 Labs: Recent Labs 10/20/23 1340 WBC 6.6 HGB 12.6 HCT 37.4 PLATELET 228 MCV 91.7 No results for input(s): NA, CL, CO2, K, MAGNESIUM, PHOS, CALCIUM, BUN, CREATININE in the last 168 hours. LFTs No results for input(s): PROT, ALBUMIN, AST, ALT, ALKPHOS, BILITOT, BILIDIR in the last 168 hours. Coags No results for input(s): INR, PT, PTT, FIBRINOGEN, DDIMER in the last 168 hours. Invalid input(s): THROMBIN TIME Cardiac Enzymes No results for input(s): CK, TROPONINT, PROBNP in the last 168 hours. Endocrine No results for input(s): TSH, CORTISOL in the last 68 hours. Invalid input(s): [id number] No results for input(s): POCGLU in the last 168 hours. Heme No results for input(s): LDH, HAPTOGLOBIN, URICACID in the last 168 hours. ABG (Arterial Blood Gas) No results for input(s): PHART, EEM8JVM, PO2ART, YVJ3MFM, LACTATEVEN, WUG4ZYO, PFRATIOART2 in the last 168 hours. VBG (Venous Blood Gas) No results for input(s): PHVEN, RNT9DAQ, PO2VEN, NNQ2PZX, LACTATEVEN in the last 168 hours. Mixed Venous Sat No results for input(s): [id number] in the last 168 hours. Microbiology: Microbiology Results (Last 30 days) No results found for the last 720 hours. Imaging: No results found for this visit on 10/20/23. Medications Scheduled Meds: aspirin EC 81 mg Oral Daily insulin lispro 1-4 Units Subcutaneous TID AC insulin lispro 0-8 Units Subcutaneous TID WC sodium chloride 0.9 % (flush) 5 mL Intravenous BID enoxaparin 40 mg Subcutaneous Nightly glucagon 3 mg Intravenous Once calcium gluconate 1 g Intravenous Once calcium gluconate 1 g Intravenous Once calcium gluconate 1 g Intravenous Once calcium gluconate 1 g Intravenous Once Continuous Infusions: PRN Meds:.glucose 40% oral geL OR dextrose OR glucagon, sodium chloride 0.9 % (flush), lidocaine, nitroGLYcerin Assessment & Plan: Kim Perez is a 63 y.o. female w/ PMH of ulcerative colitis, ankylosing spondylitis, HTN and HLD on HD# 0 for symptomatic bradycardia in the setting of complete heart block. 10/20/23: Patient continues to perfuse well even in the setting of complete heart block and is not in need of emergent TVP. Her narrow junctional escape rhythm is reassuring. EP is involved and continues to evaluate for permanent pacemaker placement. Prior to permanent pacemaker, will ensure that the etiology of her symptomatic bradycardia is not beta-rosita overdose. Patient will be administered glucagon and calcium gluconate. If no improvement, discussions with EP for pacemaker placement will continue likely tomorrow. TTE today showing LVEF 67% w/o WMA or valvular disease. Neuro #NÉSTOR -- Cardiovascular #Complete Heart Block - Hold home beta rosita - Glucagon 3mg infusion to reverse potential beta blockade - Calcium gluconate - EP involved for potential permanent pacemaker placement if no improvement with glucagon/calcium gluconate - TTE normal 10/20/2023 #HTN #HLD - Hold home HCTZ and losartan - Hold home simvastatin -- Pulmonary #NÉSTOR -- Renal/Fluid/Electrolytes # Hypomagnesemia # Hypophosphatemia - s/p Magnesium oxide supplementation 2/5 - s/p Potassium phosphate supplementation 2/5 - Daily BMP -- Gastrointestinal/Metabolic/Nutrition #NÉSTOR Endocrine #Prediabetes - Stop home metformin - SSI -- Autoimmune #Ulcerative Colitis #Ankylosing Spondylitis - Holding Rinvoq Hematology #NÉSTOR -- Infection #NÉSTOR -- #Routine Diet: Carb Control diet 60/60/75 CHO counting level 2 DVT Prophylaxis: Lovenox GI Prophylaxis: Not indicated Code Status: Attempt Cardiopulmonary Resuscitation - Inpatient Dispo: Pending clinical course Jean Roca, DO Internal Medicine, PGY-1 Cardiology, [facility] 10/20/23 2:14 PM * [place] MD - 10/20/2023 10:39 AM EST Inpatient Cardiac Electrophysiology- Initial Consultation Date of Consultation: 10/20/2023 Admit Date: 10/20/2023 Patient Location: [facility] Attending Bread Icer: Riley Reason for Consult: Complete Heart Block Active Problem List: #Complete Heart Block #Ulcerative Colitis #Ankylosing Spondylitis Assessment: Overall, the patient is likely symptomatic in the setting of complete heart block, but fortunately,with a backup junctional escape. At this time, given her ability to maintain normotension, there isno immediate indication for TVP. It is reasonable to wait for metoprolol washout to see if she regains conduction but this seems unlikely. Also at question is the reason for her conduction disease; she is at the lower end of age for someone to have degenerative conduction disease but it is a possibility and there is some scant literature about the association between UC/ankylosing spondylitis andpremature conduction disease. Also possible would be the presence of infiltrative disease (amyloid,sarcoid) though by history these seem unlikely. We will plan to observe overnight. She has been consented for a LEFT sided dual chamber left sided permanent pacemaker were it to come to that and the procedure and follow up was discussed in detail with her daughter, Aylin, and , Lucien. Her Mallampati is II, ASA is II. Anesthesia support seems reasonable given her history of and neck discomfort. She would be able to lay flat for 1-1.5 hours and does not endorse claustrophobia. She has had cervical fusion but could tolerate laying moreor less flat with a bolster behind her neck. Recommendations: -Monitor conduction overnight off of all AVN blockading agents -Place NPO at midnight as we may end up proceeding with PPM tomorrow HPI: Kim Perez is a 63 y.o. female with a history of ulcerative colitis, ankylosing spondylitis, who presents in the setting of symptomatic complete heart block. History gathered from discussion with patient as well as chart review. She is a very pleasant 61-year-old female with history notablefor ulcerative colitis, hypertension, no previous cardiac history. She reported over the last few weeks, was having intermittent lightheadedness and shortness of breath, and she noted that her heart rate had decreased to around 30 beats a minute. She went to outside emergency department, where she was notable to be in complete heart block with a junctional escape around 40 beats a minute. She is o utside during the summer times, but has no recent tick exposures. Her last dose of metoprolol was this morning. Interestingly, she does report a history a few years ago (records not available to myself) of episodes of syncope that were attributed to her dose of metoprolol of 100mg at that time, thedose was dropped to 50mg which she has remained on more or less without issue since her most recenthistory as described above. Review of Systems: 10 point review of systems completed, pertinent findings are noted in the HPI. Past Medical History Ulcerative Colitis Osteopenia MÉNDEZ HLD DM2 Outpt Meds: No current facility-administered medications on file prior to encounter. Current Outpatient Medications on File Prior to Encounter Medication Sig Dispense Refill Asmanex HFA 200 mcg/actuation HFA Aerosol Inhaler Inhale 1 puff into the lungs daily. upadacitinib (Rinvoq) 15 mg ER 24 hr tablet Take 1 tablet by mouth daily. 30 tablet 3 metoprolol succinate XL (Toprol-XL) 50 mg ER 24 hr tablet Take 50 mg by mouth daily. cyclobenzaprine (Flexeril) 5 mg Tablet Take 1 tablet by mouth 3 times daily as needed for Muscle spasms. (Patient not taking: Reported on 10/07/2023) 30 tablet 1 clindamycin (CLEOCIN T) 1 % Lotion Apply to affected areas on abdomen twice daily for ten days. (Patient not taking: Reported on 10/07/2023) 60 mL 0 triamcinolone (Kenalog) 0.1 % Cream Apply to affected areas on bilateral forearms twice daily for two weeks, then stop for one week and continue as needed for maintenance (Patient not taking: Reported on 10/07/2023) 30 g 0 fish oil-omega-3 fatty acids 1,000 mg Capsule Take 2 g by mouth daily. cholecalciferol, Vitamin D3, (Vitamin D3) 1,000 unit Tablet Take by mouth daily. fexofenadine (PRICILLA) 180 mg Tablet Take 180 mg by mouth daily. PROAIR HFA 90 mcg/actuation HFA Aerosol Inhaler as needed. topiramate 50 mg capsule,sprinkle,ER 24hr TAKE ONE CAPSULE BY MOUTH TWICE A DAY 3 aspirin 81 mg Tablet, Delayed Release (E.C.) Take 81 mg by mouth daily. SUMAtriptan (IMITREX) 20 mg/actuation [place], Non-Aerosol 1 spray as needed. metFORMIN (GLUCOPHAGE) 500 mg Tablet Take 500 mg by mouth 2 times daily. 3 hydrochlorothiazide (HYDRODIURIL) 12.5 mg Tablet Take 12.5 mg by mouth daily. simvastatin (ZOCOR) 10 mg Tablet Take 10 mg by mouth nightly. losartan (COZAAR) 50 mg Tablet Take 50 mg by mouth daily. 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 Vitals: Last value Range last 24 hrs Temperature Temp: 36.5 ??C (97.7 ??F) Temp: [36.4 ??C (97.5 ??F)-36.5 ??C (97.7 ??F)] Heart Rate Heart Rate: (!) 37 Heart Rate: [37] Blood Pressure BP: 140/56 BP: (140-141)/(56-62) Respiratory Rate Resp: 17 Resp: [8-17] SpO2 SpO2: 99 % SpO2: [99 %-100 %] Physical Exam Constitutional: AOx3. No distress. Cardiovascular: Normal rate and regular rhythm. Pulmonary/Chest: Effort normal. Appears moderately short of breath. Musculoskeletal: Normal range of motion. He exhibits no edema. Neurological: Oriented to person, place, and time. Skin: Skin is warm and dry. Labs reviewed, pertinent for: Labs pending from today Echocardiogram: Left ventricular size and systolic function is normal. The left ventricular ejection fraction is 67% by Elliott's biplane. There are no segmental wall motion abnormalities. Right ventricular systolic function is normal. No significant valvular disease. No prior studies for comparison. EKG: Sinus rhythm, CHB, junctional bradycardia Case was discussed with Dr. Castro who agrees with recommendations as documented above. X Consult service will continue to follow patient. Recommendations are above, please page if further consultation required. Gera Martell MD Cardiac Electrophysiology Fellow [facility] Pager [phone] 10/20/2023 I met with the patient today and independently confirmed the history, physical exam, and testing. Ipersonally reviewed and interpreted the available ECGs and additional cardiac testing (echo), as well as the labs. I agree with the detailed management plan as written in the fellow note today. I discussed this plan with the patient, who is also in agreement. These notes are in addition to the history, exam and plan that I reviewed in detail, listed above: Ms. Perez is admitted with symptomatic bradycardia due to AV block. She has had syncope and lightheadedness in the past with a higher dose of metoprolol that resolved with reduction in the dose.She took metoprolol this morning. I suggested holding metoprolol for now, reversal of its effects, and monitoring on telemetry. If heart block does not resolve, she will require permanent pacing witha left sided, dual chamber permanent pacemaker. Given her fairly young age, I would consider cardiac MRI and/or PET scan in the near future (2 months) for evaluation of an underlying cardiac process as cause for her AV block. It is possible that this is related to her ankylosing spondylitis. Ms. Perez agrees with the above plan. Dr. Jason Castro, electrophysiology attending ([id number]) documented in this encounter Miscellaneous Notes * Care Management Discharge - Nadine Andrews RN - 10/22/2023 11:16 AM EST CARE MANAGEMENT FINAL DISCHARGE NOTE Chart reviewed, care reviewed with primary team and at interdisciplinary rounds. Patient is medically ready for discharge to home. 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 Current Living Arrangements: home/apartment/condo. Accessibility Concerns:house 1 floor with 3 LISS. Current Functional Ability: Independent, Assistive Person DME used at home: none DME Needed at Discharge: none Patient is insured through: Primary Insurance: [employer] Payor: [facility] / Plan: [facility] PPO / Product Type: *No Product type* / Secondary Insurance: N/A Prescription Coverage: Yes This plan was formulated with input from patient and team. All are in agreement with plan. GHADA Shah, RN Inpatient Banquet Director- Cardiology Office of Care Management Pager #: [phone] * Consult Note - Chepe Russo MD - 10/22/2023 8:00 AM EST Images from the original note were not included. [facility] [place] [address] CARDIAC ELECTROPHYSIOLOGY CONSULT NOTE Patient: Kim Perez : 1960 Attending: Humberto Lynn MD Problem List: Patient Active Problem List Diagnosis ','Complete heart block Prediabetes Presence of left artificial hip joint [...] disease Colonoscopy 09/19/08 (Dr. Shady Luz at [facility]) for surveillance for dysplasia. Areas of skip [...] 2020 - severe involvement of L colon, [id number] involvement of transverse and R colon. Worse compared to last exam. SSA at hepatic flexure Adalimumab level ([place]) was 12.7 Switched to Stelara ( 03/21/21, first infusion dose) d/t Lost of response to Humira. Stopped Uceris and sulfasalazine in January 2021. Mcintosh 09/2022 - tubular featureless L colon with slightly diminished vascular pattern. Histology withmild colitis in sigmoid and inactive in descending. SSA in hep flex. 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 female with PMH of ulcerative colitis, ankylosing spondylitis, HTN, prediabetes and HLD who was found to be in complete heart block. She underwent placement of a left sided [employer] dual chamber pacemaker on 10/21/23. Procedure was uncomplicated and patient states that her symptoms of SOB have improved. Minimal painfrom PPM site. ROS: All others negative except as stated in the HPI. Vitals: Last Set of Vitals and range of vitals over past 24 hours: Last value Range last 24 hrs Temperature Temp: 36.3 ??C (97.3 ??F) Temp: [36.3 ??C (97.3 ??F)-36.4 ??C (97.5 ??F)] Heart Rate Heart Rate: 80 Heart Rate: [33-103] Blood Pressure BP: 126/62 BP: (108-147)/(47-68) Respiratory Rate Resp: 22 Resp: [13-27] SpO2 SpO2: 100 % SpO2: [96 %-100 %] Physical Exam: General- No acute distress, sitting comfortably in exam room chair HEENT- Head atraumatic, normocephalic Chest- Mepilex over left chest. No hematoma or bruising noted around site. Skin- Warm and dry Neck- No JVD noted Cardiovascular- S1/S2 regular rate and rhythm. No murmur, rub or gallop Lungs- Clear to auscultation bilaterally Extremities- Pulses equal bilaterally. No edema noted Neuro- A&Ox3 Laboratory (Last 24 Hours): Lab Results Component Value Date WBC 9.2 10/22/2023 HGB 12.9 10/22/2023 HCT 38.4 10/22/2023 PLATELET 190 10/22/2023 No results for input(s): INR in the last 168 hours. Lab Results Component Value Date NA 142 10/22/2023 K 3.8 10/22/2023 CL 107 10/22/2023 BUN 21 (H) 10/22/2023 CREATININE 1.12 10/22/2023 MAGNESIUM 0.66 (L) 10/22/2023 Diagnostics: CXR 10/22/23 Dual chamber pacemaker leads in expected position. No pneumothorax. 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 Underlying Rhythm: CHB with narrow junctional escape in the 30's Atrial Episodes: None Ventricular Episodes: None Atrial Pacing: <1% Ventricular Pacin% Lead and Generator Data Diamond Sizer And Sorter Model # Serial # Generator [employer] [id number] Atrial Lead [employer] [id number] Ventricular Lead [employer] [id number] Pace / Sense Data Sensed wave (mV) Threshold (V) Impedance (Ohms) Atrium 5.3 0.5 @ 0.4 ms 607 Ventricle 10.0 0.4 @ 0.4 ms 787 Final Programming Pacing: Mode Lower rate (ppm) Upper rate (ppm) DDD 60 130 Assessment: PMH of ulcerative colitis, ankylosing spondylitis, HTN, prediabetes and HLD who was found to be in complete heart block. She underwent placement of a left sided [employer] dual chamber pacemaker on 10/21/23. Device is functioning well and CXR unremarkable. Recommendations: - Pocket incision is well healed without signs or symptoms of infection - Device is functioning appropriately - Patient will have 10 day follow up here and will then follow up at [facility] Case was discussed with Dr. Berumen who agrees with recommendations as documented above. EP Consult service will continue to follow patient. x Recommendations are above, please page if further consultation required. Chepe Russo Fretted Instrument Maker Hand [id number] Associated attestation - Dilip Berumen MD - 10/22/2023 11:33 AM EST Post-op day # 1 s/p dual-chamber pacemaker for symptomatic complete heart block . Patient feels much, much better. Post implant interrogation - excellent RA and RV parameters. CXR- good and stable lead positions, no sign of PTX. OK to discharge patient from EP standpoint. Will arrange [facility] and ~ [facility] day check at [facility]. Dilip Berumen MD, PhD, [facility] Cardiac Electrophysiology 10/22/2023 11:32 AM * Initial Assessments - Liyah Spencer RN - 10/21/2023 12:31 PM EST Office of Care Management Initial Assessment Liyah Spencer RN reviewed record and discussed patient with Care Team. Source of Information: Team, bedside nurse, medical record, and Patient Introduced self/reviewed role; services accepted. Admitted From: Home Reason for Hospitalization: Dizziness Covid Vaccination Status: 1st, 2nd & booster Past medical History: Past Medical History: Diagnosis Date Ankylosing spondylitis 02/21/2011 Hypertension Mild asthma 02/24/2018 Type 2 diabetes mellitus without complication, without long-term current use of insulin 02/24/2018 Ulcerative colitis diagnosed in 1993 with L-sided disease Treated with sulfasalazine 3 g PO qd Colonoscopy 2001 - mildL sided disease Colonoscopy 09/19/08 (Dr. Shady Luz at [facility]) for surveillance for dysplasia. Areas of skip inflammation without ulceration in the transverse colon, descending colon, and the rectosigmoid. Upon attempt at retroflexion, a rectal mucosal tear requiring subsequent admission with 10 d Hospitalizations Within the Past 30 Days: no previous admission in last 30 days Current Decision-Making Capacity: Self If AD's have not been completed the following surrogate would be surrogate decision maker per [place] decision making law. (Only good for 180 days) Any patient receiving care in [place] must abide by [place] law. The hierarchy for surrogate decision making is: (a) Patient???s spouse or civil union partner unless there is a divorce proceeding, separation agreement, or restraining order limiting that person???s relationship with the patient. (b) Any adult son or daughter of the patient. (c) Either parent of the patient. (d) Any adult brother or sister of the patient. (e) Any adult grandchild of the patient. (f) Any grandparent of the patient. (g) Any adult aunt, uncle, niece, or nephew of the patient. (h) A close friend of the patient. (i) The agent with financial power of prosecuting attorney or a conservator appointed in accordance with RSA 464-A. (j) The guardian of the patient???s estate. 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 Current Living Arrangements: home/apartment/condo. Accessibility Concerns:house 1 floor with 3 LISS. In the last 12 months, how many places have you lived?: 1 In the last 12 months, was there a time when you did not have a steady place to sleep or slept in ashelter (including now)?: No In the past 12 months has the electric, gas, oil, or water [employer] threatened to shut off services in your home?: No Within the past 12 months, you worried that your food would run out before you got the money to buymore.: Never true Within the past 12 months, the food you bought just didn't last and you didn't have money to get more.: Never true Resource / Environmental Concerns: Resource/Environmental Concerns: none In the past 12 months, has lack of transportation kept you from medical appointments or from getting medications?: No In the past 12 months, has lack of transportation kept you from meetings, work, or from getting things needed for daily living?: No Current DME: none Home Address confirmed as: [address] [place] [id number] Social & Family Supports: All names listed below confirmed with patient as current and correct Extended Emergency Contact Information Primary Emergency Contact: Lucien Perez Address: [address] [place] [id number] [facility] Mobile Relation: Spouse Secondary Emergency Contact: Olivia Buckley Mobile Relation: Child Current Care Provided by: self Provides Primary Care For: no one Caregiver if needed: spouse Quality of Family relationships: helpful, involved, supportive Community Resources being provided currently: none Behavioral Health History: none Substance Use/Abuse confirmed: Social History Tobacco Use Smoking Status Never Smokeless Tobacco Never In the past year have you used an illegal drug or used a prescription medication for non-medical reasons?: No 0 No problems reported 1-2 Low level 3-5 Moderate level 6-8 Substantial level 9- 10 Severe level In the past year have you had 4 or more drinks a day containing alcohol?: No 0 to 7 points: Low risk 8 to 15 points: Medium risk 16 to 19 points: High risk 20 to 40 points: Addiction likely Health/Prescription Coverage: Primary Insurance: [employer] Payor: [employer] / Plan: [facility] PPO / Product Type: *No Product type* / Secondary Insurance: N/A ; Prescription Coverage: Yes Preferred Pharmacy: [id number] - [place], [place] - [address] [facility] [address] [place] [address] [id number] [address] [address] Status: Patient is a : No Primary Care Provider confirmed: Marcio Devlin DO [phone] Patient/Caregiver Goals of Treatment: return home with family Potential Needs for Transition of Care: home health care Transportation: no concerns Transportation Anticipated: family or friend will provide Concerns to be Addressed: discharge planning Assessment: Patient is 63yo female admitted to cardiology service for complete heart block scheduled for pace maker today. Plan: Will monitor for discharge needs, A member of the Care Management team will continue to monitor progress, follow for continuity of care and assist with transition of care planning. Liyah Spencer RN documented in this encounter Plan of Treatment Upcoming Encounters Date Type Department Care Team (Late st Contact Info) Description 04/19/2024 10:00 AM EDT Hospital Encounter Non-Invasive Cardiology Lab [address] Arrived 04/29/2024 9:50 AM EDT Appointment MRI at [place] [address] Luis Alfredo Velazquez MD [facility] [place] [address] 04/29/2024 9:50 AM EDT Appointment MRI at [place] [phone] Luis Alfredo Velazquez MD [facility] [place] [address] 06/07/2024 2:30 PM EDT TH Visit (TeleHealth) Gastroenterology at [address] Dajuan Rachel MD [facility] [place] [address] 07/02/2024 2:00 PM EDT Appointment Non-Invasive Cardiology Lab [facility] [place] [address] Luis Alfredo Velazquez MD [facility] [place] [address] 07/02/2024 4:40 PM EDT Office Visit Cardiology at [address] [place] [address] Luis Alfredo Velazquez MD [facility] [place] [address] documented as of this encounter Procedures Procedure Name Priority Date/Time Associated Diagnosis Comments XR CHEST PA AND LATERAL Routine 10/22/19 5:34 AM EST HEMOGRAM Routine 10/22/2023 2:41 AM EST DIFFERENTIAL, AUTOMATED Routine 10/22/19 2:41 AM EST HC CBC,PLT & AUTO DIFF Routine 2:41 AM EST HC PHOSPHORUS, SERUM Routine 10/22/2023 2:41 AM EST HC MAGNESIUM, SERUM Routine 10/22/2023 2 :41 AM EST BASIC METABOLIC PANEL (NON-FASTING) Routine 10/22/2023 2:41 AM EST POCT GLUCOSE Routine 10/21/2023 9:43 PM EST XR CHEST ONE VIEW Routine 10/21/2023 8:3 5 PM EST POCT GLUCOSE Routine 10/21/2023 3:33 PM EST ELECTROPHYSIOLOGY PROCEDURE Routine 10/21/2023 3:04 PM EST POCT GLUCOSE Routine 10/21/2023 11:31 AM EST BASIC METABOLIC PANEL (NON-FASTING) Routine 10/21/2023 7:55 AM EST POCT GLUCOSE Routine 10/21/2023 7:54 AM EST HEMOGRAM Routine 10/21/2023 6:04 AM EST DIFFERENTIAL, AUTOMATED Routine 10/21/19 24 6:04 AM EST HC CBC,PLT & AUTO DIFF Routine 4 6:04 AM EST HC PHOSPHORUS, SERUM Routine 10/21/2023 6:04 AM EST HC MAGNESIUM, SERUM Routine 10/21/2023 6 :04 AM EST POCT GLUCOSE Routine 10/20/2023 9:06 PM EST POCT GLUCOSE Routine 10/20/2023 4:50 PM EST HEMOGRAM Routine 10/20/2023 1:40 PM EST DIFFERENTIAL, AUTOMATED Routine 10/20/19 24 1:40 PM EST HC CBC,PLT & AUTO DIFF Routine 4 1:40 PM EST HC PHOSPHORUS, SERUM Routine 10/20/2023 1:40 PM EST HC MAGNESIUM, SERUM Routine 10/20/2023 1 :40 PM EST BASIC METABOLIC PANEL (NON-FASTING) Routine 10/20/2023 1:40 PM EST ECHO COMPLETE W CONTRAST Routine 024 11:32 AM EST CHB (complete heart block) documented in this encounter Results * XR Chest PA & Lateral (Generic) (10/22/2023 5:34 AM EST) Anatomical Region Laterality Modality Chest N/A Digital Radiogra phy Impressions 10/22/2023 8:51 AM EST Dual chamber pacemaker leads in expected position. No pneumothorax. Thank you for letting us participate in the care of this patient. ??If you are a health care provider and have any questions regarding this report, please contact the number below. ??For patients who have questions please contact the health progressive care unit registered nurse that requested your imaging first. ? Electronically signed by: Liang Padilla MD, [facility] ??([phone]), at 10/22/2023 8:51 AM Narrative 10/22/2023 8:51 AM EST EXAMINATION: XR CHEST PA AND LATERAL (GENERIC) CLINICAL HISTORY: Post CIED implantation, assess for lead placement and rule out pneumothorax TECHNIQUE: PA and lateral views of the chest COMPARISON: 10/21/2023 FINDINGS: The cardiomediastinal silhouette is within normal limits. Dual chamber pacemaker leads terminate in the right atrium and right ventricle The lungs are clear. No pleural effusion or pneumothorax. Procedure Note Liang Padilla MD - 10/22/2023 EXAMINATION: XR CHEST PA AND LATERAL (GENERIC) CLINICAL HISTORY: Post CIED implantation, assess for lead placement andrule out pneumothorax TECHNIQUE: PA and lateral views of the chest COMPARISON: 10/21/2023 FINDINGS: The cardiomediastinal silhouette is within normal limits. Dual chamberpacemaker leads terminate in the right atrium and right ventricle The lungs are clear. No pleural effusion or pneumothorax. IMPRESSION Dual chamber pacemaker leads in expected position. No pneumothorax. Thank you for letting us participate in the care of this patient. If youare a health care provider and have any questions regarding this report,please contact the number below. For patients who have questions please contactthe health progressive care unit registered nurse that requested your imaging first. Dilip Berumen MD IMG DX ORDERABLES * (ABNORMAL) Differential, Automated (10/22/2023 2:41 AM EST) Neutrophils % 71.9 % [facility] Neutr Abs (ANC) 6.59(H) 1.70 - 6.10 x10(3)/[facility] Lymphocytes % 19.1 % [facility] Lymphocytes Abs 1.8 0.9 - 3.2 x10(3)/[facility] Monocytes % 7.9 % [facility] Monocyte Abs 0.7 0.3 - 0.9 x10(3)/[facility] Eosinophils % 0.7 % [facility] Eosinophils Abs 0.1 0.0 - 0.4 x10(3)/[facility] Basophils % 0.2 % [facility] Basophils Abs 0.0 0.0 - 0.1 x10(3)/[facility]ORY Immature Gran % 0.20 % [facility] Comment: Immature granulocytes(IG's)percentage and absolute count will include metamyelocytes, myelocytes, and promyelocytes. Blood smears from CBCs yielding IG's will be scanned manually for concordance. If this scan disagrees with the automated IG or if promyelocytes are noted, a manual differential will be performed. Melanie Gran Abs 0.02 0.00 - 0.04 x10(3)/ L [facility] Blood 10/22/2023 2:41 AM EST 10/22/2023 2:41 AM EST Narrative Resulting Agency Comment Spec In Lab Clifton Segundo MD HEMATOLOGY ORDERABLE S [facility] [place] [address] * (ABNORMAL) Hemogram (10/22/2023 2:41 AM EST) Pathologist [facility] WBC 9.2 4.0 - 9.5 x10(3)/[facility] LABORATORY RBC 4.11 4.00 - 5.21 x10(6)/[facility] Hemoglobin 12.9 11.7 - 15.5 g/dL [facility] Hematocrit 38.4 35.7 - 45.8 % [facility] MCV 93.4 82.6 - 94.4 [facility] MCH 31.4 27.1 - 32.0 pg [facility] MCHC 33.6 31.7 - 35.0 g/dL [facility] Platelets 190 145 - 357 x10(3)/[facility] RDWSD 48.7(H) 37.0 - 46.0 [facility] RDWCV 14.1 11.5 - 14.1 % [facility] MPV 10.5 7.6 - 12.9 [facility] nRBC % Auto 0.0 % [facility] nRBC Abs Auto 0.000 0.000 - 0.000 x10(3)/[facility] Blood 10/22/2023 2:41 AM EST 10/22/2023 2:41 AM EST Narrative Resulting Agency Comment Spec In Lab Clifton Segundo MD HEMATOLOGY ORDERABLE S [facility] [place] [address] * (ABNORMAL) Basic Metabolic Panel (non-fasting) (10/22/2023 2:41 AM EST) Pathologist [facility] Glucose Lvl 115 65 - 199 mg/dL [facility] Comment:Diabetes: >=200 mg/d L plus symptoms BUN 21(H) 8 - 18 mg/dL [facility] Creatinine 1.12 0.70 - 1.20 mg/dL [facility] Sodium 142 135 - 145 mmol/L [facility] Potassium 3.8 3.5 - 5.0 mmol/L [facility] Comment: Please note: ??Patients with WBC >100,000 may have falsely elevated Potassium levels. ??For accurate Potassium quantification in these patients send serum separator tube (gold top) for subsequent determinations. ??Contact the Clinical Chemistry Laboratory if there are any questions. Chloride 107 98 - 107 mmol/L [facility] CO2 23 22 - 31 mmol/L [facility] Anion Gap 12 5 - 15 mmol/L [facility] Calcium 9.1 8.5 - 10.5 mg/dL [facility] Estimated GFR 56(L) >=60 mL/min/1. 73 m?? [facility] Comment: This patient's estimated GFR was [...] In Lab Glenn Miranda MD CHEMISTRY ORDERABLES [facility] [place] [address] * Phosphorus (10/22/2023 2:41 AM EST) Phosphorus 4.3 2.5 - 4.5 mg/dL [facility] Blood 10/22/2023 2:41 AM EST 10/22/2023 2:41 AM EST Narrative Resulting Agency Comment Spec In Lab Glenn Miranda MD CHEMISTRY ORDERABLES Performing Organization Address [facility] de Phone Number [facility] [place] [address] * (ABNORMAL) Magnesium (10/22/2023 2:41 AM EST) Magnesium 0.66(L) 0.69 - 1.07 mmol/L [facility] Blood 10/22/2023 2:41 AM EST 10/22/2023 2:41 AM EST Narrative Resulting Agency Comment Spec In Lab Glenn Miranda MD CHEMISTRY ORDERABLES Performing Organization Address [facility] de Phone Number [facility] [place] [address] * POCT Glucose (10/21/2023 9:43 PM EST) POC Glucose 131 65 - 199 mg/dL [facility] Comment: Supplemental ranges: <140 mg/dL before meals <180 mg/dL all other times of the day Blood 10/21/2023 9:43 PM EST 10/21/2023 9:43 PM EST Humberto Lynn MD POINT OF CARE TEST ORDERABLES Performing Organization Address [facility] de Phone Number [facility] [place] [address] * XR Chest One View (10/21/2023 8:35 PM EST) Anatomical Region Laterality Modality Chest N/A Digital Radiogra phy Impressions 10/22/2023 8:45 AM EST No acute pulmonary findings Thank you for letting us participate in the care of this patient. ??If you are a health care provider and have any questions regarding this report, please contact the number below. ??For patients who have questions please contact the health progressive care unit registered nurse that requested your imaging first. ? Electronically signed by: Liang Padilla MD, [facility] ??([phone]), at 10/22/2023 8:45 AM Narrative 10/22/2023 8:45 AM EST EXAMINATION: XR CHEST ONE VIEW CLINICAL HISTORY: sob pacemaker recently placed TECHNIQUE: 1 view of the chest COMPARISON: None FINDINGS: The cardiac silhouette is within normal limits. Dual-chamber pacer leads project over the right atrium and right ventricle. There is linear atelectasis at the left lung base. No pleural effusion or pneumothorax. Procedure Note Liang Padilla MD - 10/22/2023 EXAMINATION: XR CHEST ONE VIEW CLINICAL HISTORY: sob pacemaker recently placed TECHNIQUE: 1 view of the chest COMPARISON: None FINDINGS: The cardiac silhouette is within normal limits. Dual-chamber pacer leadsproject over the right atrium and right ventricle. There is linear atelectasis at the left lung base. No pleural effusionor pneumothorax. IMPRESSION No acute pulmonary findings Thank you for letting us participate in the care of this patient. If youare a health care provider and have any questions regarding this report,please contact the number below. For patients who have questions please contactthe health progressive care unit registered nurse that requested your imaging first. Electronically signed by: Liang Padilla MD, [facility]([phone]), at 10/22/2023 8:45 AM Humberto Lynn MD IMG DX ORDERABLES * POCT Glucose (10/21/2023 3:33 PM EST) POC Glucose 75 65 - 199 mg/dL [facility] Comment: Supplemental ranges: <140 mg/dL before meals <180 mg/dL all other times of the day Blood 10/21/2023 3:33 PM EST 10/21/2023 3:33 PM EST Glenn Miranda MD POINT OF CARE TEST O RDERABLES [facility] [place] [address] * ELECTROPHYSIOLOGY PROCEDURE (10/21/2023 3:04 PM EST) Anatomical Region Laterality Modality Other Narrative 10/24/2023 12:54 PM EST Table formatting from the original result was not included. Images from the original result were not included. Drafting Teacher: Dilip Berumen MD Fellow: Grea Martell MD Procedures: Dual chamber pacemaker implantation, peripheral venogram Procedure Date: 10/21/2023 Patient: Kim Perez Patient : 1960 Procedure Report: Anesthesia: MAC Informed consent was obtained in the pre-operative staging area. The patient was brought to the Cardiac Electrophysiology laboratory in a post-absorptive, fasting state after receiving 2 scrubs to the implant area. A peripheral IV was in place. Continuous electrocardiographic, blood pressure, oxygen saturation and carbon dioxide monitoring was initiated. Self-adhesive cardioversion patches were positioned on the chest. ??IV antibiotics were administered. The implant site was then prepped and draped in the usual sterile fashion. The implant area was infiltrated with a 50/50 mixture of lidocaine (2%) and bupivicaine (0.5%). A venogram was performed which showed patent left axillary and left subclavian venous anatomy. An incision was made medial to the LEFT deltopectoral groove and sharp and blunt dissection was used down to the level of the pre-pectoralis fascia. Hemostasis was maintained with electrocautery. A device pocket was fashioned. Axillary venous access was obtained once using ultrasound guidance, and wire location was confirmed using fluoroscopy. Following 9F sheath placement in the subclavian vein, the J wire was retained and a permanent pacing lead was advanced under fluoroscopic guidance and positioned in the right ventricle where a stable position with adequate sensing and pacing characteristics was obtained. The lead was anchored to the pre-pectoralis fascia using 0 silk, non-absorbable suture. The first sheath was split and over the retained wire a second sheath placement in the subclavian vein, a permanent pacing lead was advanced under fluoroscopic guidance and positioned in the right atrium where a stable position with adequate sensing and pacing characteristics was obtained. The sheath was split and the lead was anchored to the pre-pectoralis fascia using 0 silk, non-absorbable suture. The pocket was then flushed with antibiotic solution. The generator was connected to the leads, tested and found to be functioning satisfactorily. It was noted around this time that there was an increased amount of atrial ectopy which was thought secondary to mechanical bumping of the RA lead along the tricuspid annulus. Therefore, we freed the atrial lead from its sleeve and redeployed it in a location more cranial in the right atrium where we did not see any evidence of further atrial ectopy. ??The atrial lead was again sutured down to the underlying fascia. After this atrial lead redeployment had been performed, we did note occasional PVCs but this improved on 2.5 mg of IV metoprolol. The generator was implanted in the pocket, and the pocket closed in layers using 2-0 interrupted vicryl, 3-0 running vicryl, and 4-0 monocryl absorbable sutures. The skin was closed using a sub-cuticular technique. Dermabond and a bio-occlusive dressing were applied to the skin. ??The patient remained hemodynamically stable, tolerated the procedure well and was transferred in stable condition. Dr. Berumen was present for and participated in the entire procedure. Lead and Generator Data [employer] Sizer [employer] Sorter Model # Serial # Generator [employer] [id number] Atrial Lead [employer] [id number] Ventricular Lead [employer] [id number] Pace / Sense Data Sensed wave (mV) Threshold (V) Impedance (Ohms) Atrium 2.3 1.6 @ 0.4 ms 608 Ventricle 18.3 0.6 @ 0.4 ms 796 Final Programming Pacing: Mode Lower rate (ppm) Upper rate (ppm) DDD 60 130 Radiology Summary Total Fluoro time (minutes) 6.1 ?? Dose Area Product (cGycm2) 1.94 The fellow updated the patient's family (, Lucien, and patient's daughter, Aylin) at bedside post procedure. Conclusions: Successful dual chamber permanent pacemaker system PA and lateral CXR tomorrow AM, NPO @ MN in case revision is required Standard left upper extremity activity precautions Patent left axillary and subclavian venous anatomy Procedures performed: Dual chamber permanent pacemaker implantation Peripheral venogram I was present for and directly participated in all hernandez aspects of this procedure. Dilip Berumen MD, PhD, [facility] Cardiac Electrophysiology Dilip Berumen MD EP PROCEDURE ORDERAB LES * POCT Glucose (10/21/2023 11:31 AM EST) POC Glucose 104 65 - 199 mg/dL [facility] Comment: Supplemental ranges: <140 mg/dL before meals <180 mg/dL all other times of the day Blood 10/21/2023 11:3 1 AM EST 10/21/2023 11:31 AM EST Glenn Miranda MD POINT OF CARE TEST O RDERABLES [facility] [place] [address] * (ABNORMAL) Basic Metabolic Panel (non-fasting) (10/21/2023 7:55 AM EST) Glucose Lvl 114 65 - 199 mg/dL [facility] Comment:Diabetes: >=200 mg/d L plus symptoms BUN 23(H) 8 - 18 mg/dL [facility] Creatinine 1.18 0.70 - 1.20 mg/dL [facility] Sodium 143 135 - 145 mmol/L [facility] Potassium 4.2 3.5 - 5.0 mmol/L [facility] Comment: Please note: ??Patients with WBC >100,000 may have falsely elevated Potassium levels. ??For accurate Potassium quantification in these patients send serum separator tube (gold top) for subsequent determinations. ??Contact the Clinical Chemistry Laboratory if there are any questions. Chloride 111(H) 98 - 107 mmol/L [facility] CO2 21(L) 22 - 31 mmol/L [facility] Anion Gap 11 5 - 15 mmol/L [facility] Calcium 10.1 8.5 - 10.5 mg/dL [facility] Estimated GFR 52(L) >=60 mL/min/1. 73 m?? [facility] Comment: This patient's estimated GFR was [...] and symptoms in addition to eGFR. Blood 10/21/2023 7:55 AM EST 10/21/2023 8:12 AM EST Narrative Resulting Agency Comment Spec In Lab Glenn Miranda MD CHEMISTRY ORDERABLES Performing Organization Address [facility]/ZIP Co de Phone Number [facility] [place] [address] * POCT Glucose (10/21/2023 7:54 AM EST) [facility] POC Glucose 107 65 - 199 mg/dL [facility] Comment: Supplemental ranges: <140 mg/dL before meals <180 mg/dL all other times of the day Blood 10/21/2023 7:54 AM EST 10/21/2023 7:54 AM EST Glenn Miranda MD POINT OF CARE TEST O RDERABLES Performing Organization Address City/[facility]/ZIP Co de Phone Number [facility] [place] [address] * Differential, Automated (10/21/2023 6:04 AM EST) Neutrophils % 56.2 % [facility] Neutr Abs (ANC) 3.81 1.70 - 6.10 x10(3)/mcL [facility] Lymphocytes % 33.4 % [facility] Lymphocytes Abs 2.3 0.9 - 3.2 x10(3)/[facility] Monocytes % 9.0 % [facility] Monocyte Abs 0.6 0.3 - 0.9 x10(3)/[facility] Eosinophils % 0.9 % [facility] Eosinophils Abs 0.1 0.0 - 0.4 x10(3)/[facility] Basophils % 0.4 % [facility] Basophils Abs 0.0 0.0 - 0.1 x10(3)/[facility] Immature Gran % 0.10 % [facility] Comment: Immature granulocytes(IG's)percentage and absolute count will include metamyelocytes, myelocytes, and promyelocytes. Blood smears from CBCs yielding IG's will be scanned manually for concordance. If this scan disagrees with the automated IG or if promyelocytes are noted, a manual differential will be performed. Melanie Gran Abs 0.01 0.00 - 0.04 x10(3)/[facility] Blood 10/21/2023 6:04 AM EST 10/21/2023 6:21 AM EST Narrative Resulting Agency Comment Spec In Lab Clifton Segundo MD HEMATOLOGY ORDERABLE S [facility] [place] [address] * (ABNORMAL) Hemogram (10/21/2023 6:04 AM EST) WBC 6.8 4.0 - 9.5 x10(3)/[facility] RBC 4.06 4.00 - 5.21 x10(6)/[facility] Hemoglobin 12.6 11.7 - 15.5 g/dL [facility] Hematocrit 38.1 35.7 - 45.8 % [facility] MCV 93.8 82.6 - 94.4 fL [facility] MCH 31.0 27.1 - 32.0 pg [facility] MCHC 33.1 31.7 - 35.0 g/dL [facility] Platelets 211 145 - 357 x10(3)/[facility] RDWSD 50.4(H) 37.0 - 46.0 fL [facility] RDWCV 14.5(H) 11.5 - 14.1 % [facility] MPV 10.9 7.6 - 12.9 fL [facility] nRBC % Auto 0.0 % [facility] nRBC Abs Auto 0.000 0.000 - 0.000 x10(3)/[facility] Blood 10/21/2023 6:04 AM EST 10/21/2023 6:21 AM EST Narrative Resulting Agency Comment Spec In Lab Clifton Segundo MD HEMATOLOGY ORDERABLE S [facility] [place] [address] * Phosphorus (10/21/2023 6:04 AM EST) Phosphorus 4.5 2.5 - 4.5 mg/dL [facility] Comment:result rechecked-EL Blood 10/21/2023 6:04 AM EST 10/21/2023 6:21 AM EST Narrative Resulting Agency Comment Spec In Lab Glenn Miranda MD CHEMISTRY ORDERABLES [facility] [place] [address] * Magnesium (10/21/2023 6:04 AM EST) Magnesium 0.70 0.69 - 1.07 mmol/L [facility] Blood 10/21/2023 6:04 AM EST 10/21/2023 6:21 AM EST Narrative Resulting Agency Comment Spec In Lab Glenn Miranda MD CHEMISTRY ORDERABLES Performing Organization Address [facility]/ZIP Co de Phone Number [facility] [place] [address] * POCT Glucose (10/20/2023 9:06 PM EST) POC Glucose 116 65 - 199 mg/dL [facility] Comment: Supplemental ranges: <140 mg/dL before meals <180 mg/dL all other times of the day Blood 10/20/2023 9:06 PM EST 10/20/2023 9:06 PM EST Elle Tristan MD POINT OF CARE T EST ORDERABLES Performing Organization Address [facility] Co de Phone Number [facility] [place] [address] * POCT Glucose (10/20/2023 4:50 PM EST) POC Glucose 94 65 - 199 mg/dL [facility] Comment: Supplemental ranges: <140 mg/dL before meals <180 mg/dL all other times of the day Blood 10/20/2023 4:50 PM EST 10/20/2023 4:50 PM EST Elle Tristan MD POINT OF CARE T EST ORDERABLES Performing Organization Address [facility] Co de Phone Number [facility] [place] [address] * Differential, Automated (10/20/2023 1:40 PM EST) Neutrophils % 42.4 % [facility] Neutr Abs (ANC) 2.79 1.70 - 6.10 x10(3)/[facility] Lymphocytes % 48.1 % [facility] Lymphocytes Abs 3.2 0.9 - 3.2 x10(3)/[facility] Monocytes % 8.2 % [facility] Monocyte Abs 0.5 0.3 - 0.9 x10(3)/[facility] Eosinophils % 0.8 % [facility] Eosinophils Abs 0.0 0.0 - 0.4 x10(3)/[facility] Basophils % 0.3 % [facility] Basophils Abs 0.0 0.0 - 0.1 x10(3)/[facility] Immature Gran % 0.20 % [facility] Comment: Immature granulocytes(IG's)percentage and absolute count will include metamyelocytes, myelocytes, and promyelocytes. Blood smears from CBCs yielding IG's will be scanned manually for concordance. If this scan disagrees with the automated IG or if promyelocytes are noted, a manual differential will be performed. Melanie Gran Abs 0.01 0.00 - 0.04 x10(3)/[facility] Blood 10/20/2023 1:40 PM EST 10/20/2023 1:57 PM EST Narrative Resulting Agency Comment Spec In Lab Clifton Segundo MD HEMATOLOGY ORDERABLE S [facility] [place] [address] * (ABNORMAL) Hemogram (10/20/2023 1:40 PM EST) WBC 6.6 4.0 - 9.5 x10(3)/[facility] RBC 4.08 4.00 - 5.21 x10(6)/[facility] Hemoglobin 12.6 11.7 - 15.5 g/dL [facility] Hematocrit 37.4 35.7 - 45.8 % [facility] MCV 91.7 82.6 - 94.4 fL [facility] MCH 30.9 27.1 - 32.0 pg [facility] MCHC 33.7 31.7 - 35.0 g/dL [facility] Platelets 228 145 - 357 x10(3)/[facility] RDWSD 48.5(H) 37.0 - 46.0 fL [facility] RDWCV 14.3(H) 11.5 - 14.1 % [facility] MPV 10.9 7.6 - 12.9 fL [facility] nRBC % Auto 0.0 % [facility] nRBC Abs Auto 0.000 0.000 - 0.000 x10(3)/[facility] Blood 10/20/2023 1:40 PM EST 10/20/2023 1:57 PM EST Narrative Resulting Agency Comment Spec In Lab Clifton Segundo MD HEMATOLOGY ORDERABLE S Performing Organization Address [facility]/[place] [address] * (ABNORMAL) Phosphorus (10/20/2023 1:40 PM EST) Phosphorus 1.6(L) 2.5 - 4.5 mg/dL [facility] Blood 10/20/2023 1:40 PM EST 10/20/2023 1:57 PM EST Narrative Resulting Agency Comment Spec In Lab Elle Tristan MD CHEMISTRY ORDER EDUAR Performing Organization Address City/[facility]/ZIP Co de Phone Number [facility] [place] [address] * Magnesium (10/20/2023 1:40 PM EST) Magnesium 0.71 0.69 - 1.07 mmol/L [facility] Blood 10/20/2023 1:40 PM EST 10/20/2023 1:57 PM EST Narrative Resulting Agency Comment Spec In Lab Elle Tristan MD CHEMISTRY ORDER EDUAR Performing Organization Address City/[facility]/ZIP Co de Phone Number [facility] [place] [address] * (ABNORMAL) Basic Metabolic Panel (non-fasting) (10/20/2023 1:40 PM EST) Glucose Lvl 92 65 - 199 mg/dL [facility] Comment:Diabetes: >=200 mg/d L plus symptoms BUN 23(H) 8 - 18 mg/dL [facility] Creatinine 1.04 0.70 - 1.20 mg/dL [facility] Sodium 145 135 - 145 mmol/L [facility] Potassium 3.9 3.5 - 5.0 mmol/L [facility] Comment: Please note: ??Patients with WBC >100,000 may have falsely elevated Potassium levels. ??For accurate Potassium quantification in these patients send serum separator tube (gold top) for subsequent determinations. ??Contact the Clinical Chemistry Laboratory if there are any questions. Chloride 110(H) 98 - 107 mmol/L [facility] CO2 20(L) 22 - 31 mmol/L [facility] Anion Gap 15 5 - 15 mmol/L [facility] Calcium 9.9 8.5 - 10.5 mg/dL [facility] Estimated GFR 61 >=60 mL/min/1. 73 m?? [facility] Comment: This patient's estimated GFR was [...] and symptoms in addition to eGFR. Blood 10/20/2023 1:40 PM EST 10/20/2023 1:57 PM EST Narrative Resulting Agency Comment Spec In Lab Elle Tristan MD CHEMISTRY ORDER EDUAR [facility] [place] [address] * ECHO COMPLETE W CONTRAST (10/20/2023 11:32 AM EST) EF 67 [facility] Anatomical Region Laterality Modality Cardiac Other 10/20/2023 10:3 4 AM EST Narrative 10/20/2023 1:32 PM [place] [address] [place] [address] ? Echocardiogram Report Name: KIM PEREZ ? Study Date: 10/20/2023 10:34 AMBP: 138/56 mmHg ? Patient Location: [facility] CV24 A : 1960 ? Height: 65.5 in ? Account: [id number] Age: 63 yrs ? Weight: 170 lb Gender: Female ?BSA: 1.9 m2 Ordering Physician: ELLE TRISTAN Referring Physician: DONI HERBERT Exam Location: [facility]. Interpretation Summary Left ventricular size and systolic function is normal. The left ventricular ejection fraction is 67% by Elliott's biplane. There are no segmental wall motion abnormalities. Right ventricular systolic function is normal. No significant valvular disease. No prior studies for comparison. Procedure Complete-[id number]. Image enhancement Optison was used for left ventricular opacification. Suboptimal quality. Satisfactory quality. Bradycardia. Left Ventricle Left ventricle is of normal size. There is a sigmoid septum. Mildly increased thickness of the basal septum with no obstruction to LV outflow. Wall thickness is normal. Left ventricular size and systolic function is normal. The left ventricular ejection fraction is 67% by Elliott's biplane. There are no segmental wall motion abnormalities. Right Ventricle The right ventricle is of normal size. Right ventricular systolic function is normal. Left Atrium The left atrium is normal. No abnormality of the interatrial septum is identified. Right Atrium The right atrium is normal. Aortic Valve The aortic valve is tricuspid. The aortic valve is mildly thickened. There is no aortic stenosis. There is no aortic regurgitation. Mitral Valve The mitral valve is structurally normal. There is mild mitral regurgitation. Tricuspid Valve The tricuspid valve is structurally and functionally normal. There is trace tricuspid regurgitation. Pulmonic Valve The pulmonic valve appears to be structurally and functionally normal. Great Arteries The aortic root is of normal size. No abnormalities are identified. Ascending aorta is normal in size. No abnormalities of the pulmonary artery are identified. Venous Inferior vena cava is normal in size. Inferior vena cava collapse greater than 50% with respiration. Pericardium/Pleural The pericardium appears normal. Hemodynamics The peak right ventricular systolic pressure is 19.9 mmHg . The estimated right atrial pressure is 3mmHg. Left ventricular diastolic function is normal. Left ventricular filling pressure is normal. Ejection Fraction ?2D Measurements ? Volumes EF(MOD-bp): 66.9 % ?IVSd: 1.3 cm ? LAV(MOD- bp) Indexed: ?LVIDd: 4.0 cm ? 25.5 ml/m2 ?LVIDs: 3.0 cm ?RA A4Cs_phl: 10.3 cm2 ?LVPWd: 0.95 cm ? EDV(MOD-bp) Indexed: ?LV mass(C)d: 150.3 grams ?LV mass(C)dI: 81.2 grams/m2 ?57.6 ml/m2 ?Ao root diam: 2.9 cm ? ESV(MOD-bp) Indexed: ?Ao root diam index: 1.6 ?19.1 ml/m2 ?asc Aorta Diam: 3.3 cm Doppler MV E max soham: 119.5 cm/sec Lat Peak E' Soham: 20.3 cm/sec E/ e' (lat): 5.9 Med Peak E' Soham: 11.0 cm/sec E/e' (med): 10.9 E/e' Average: 8.4 TR max soham: 205.3 cm/sec RVSP(TR): 19.9 mmHg I ?WMSI = 1.00 ? % Normal = 100 ?Segments ??Size X - Cannot ?2 - ?4 - ?1-2 ? small Interpret ?1 - Normal ?? Hypokinetic 3 - Akinetic Dyskinetic ?? 3-5 ? moderate 5 - ? 6-14 ?large Aneurysmal ?15-16 ?? diffuse Procedure Note Luis Alfredo Velazquez MD - 10/20/2023 [address] [place] [address] Echocardiogram Report Name: KIM PEREZ Study Date: 410:34 AMBP: 138/56 mmHg Patient Location: [address] : 1960 Height: 65.5 in Account: [id number] Age: 63 yrs Weight: 170 lb Gender: Female BSA: 1.9 m2 Ordering Physician: ELLE TRISTAN Referring Physician: DONI HERBERT Exam Location: [facility]. Interpretation Summary Left ventricular size and systolic function is normal. The leftventricular ejection fraction is 67% by Elliott's biplane. There are no segmental wallmotion abnormalities. Right ventricular systolic function is normal. No significant valvular disease. No prior studies for comparison. Procedure Complete-00854. Image enhancement Optison was used for left ventricular opacification. Suboptimal quality. Satisfactory quality. Bradycardia. Left Ventricle Left ventricle is of normal size. There is a sigmoid septum. Mildlyincreased thickness of the basal septum with no obstruction to LV outflow. Wallthickness is normal. Left ventricular size and systolic function is normal. The left ventricular ejection fraction is 67% by Elliott's biplane. There are nosegmental wall motion abnormalities. Right Ventricle The right ventricle is of normal size. Right ventricular systolic functionis normal. Left Atrium The left atrium is normal. No abnormality of the interatrial septum isidentified. Right Atrium The right atrium is normal. Aortic Valve The aortic valve is tricuspid. The aortic valve is mildly thickened. Thereis no aortic stenosis. There is no aortic regurgitation. Mitral Valve The mitral valve is structurally normal. There is mild mitralregurgitation. Tricuspid Valve The tricuspid valve is structurally and functionally normal. There istrace tricuspid regurgitation. Pulmonic Valve The pulmonic valve appears to be structurally and functionally normal. Great Arteries The aortic root is of normal size. No abnormalities are identified.Ascending aorta is normal in size. No abnormalities of the pulmonary artery areidentified. Venous Inferior vena cava is normal in size. Inferior vena cava collapse greaterthan 50% with respiration. Pericardium/Pleural The pericardium appears normal. Hemodynamics The peak right ventricular systolic pressure is 19.9 mmHg . The estimatedright atrial pressure is 3mmHg. Left ventricular diastolic function is normal.Left ventricular filling pressure is normal. Ejection Fraction 2D Measurements Volumes EF(MOD-bp): 66.9 % IVSd: 1.3 cm LAV(MOD-bp)Indexed: LVIDd: 4.0 cm 25.5 ml/m2 LVIDs: 3.0 cm RA A4Cs_phl: 10.3cm2 LVPWd: 0.95 cm EDV(MOD-bp)Indexed: LV mass(C)d: 150.3 grams LV mass(C)dI: 81.2 grams/m2 57.6 ml/m2 Ao root diam: 2.9 cm ESV(MOD-bp)Indexed: Ao root diam index: 1.6 19.1 ml/m2 asc Aorta Diam: 3.3 cm Doppler MV E max soham: 119.5 cm/sec Lat Peak E' Soham: 20.3 cm/sec E/ e' (lat): 5.9 Med Peak E' Soham: 11.0 cm/sec E/e' (med): 10.9 E/e' Average: 8.4 TR max soham: 205.3 cm/sec RVSP(TR): 19.9 mmHg I WMSI = 1.00 % Normal = 100 SegmentsSize X - Cannot 2 - 4 - 1-2small Interpret 1 - Normal Hypokinetic 3 - Akinetic Dyskinetic 3-5moderate 5 - 6-14large Aneurysmal 15-16diffuse Elle Tristan MD ECHO ORDERABLES documented in this encounter Visit Diagnoses Not on filedocumented in this encounter Admitting Diagnoses Diagnosis Complete heart block Atrioventricular block, complete documented in this encounter Administered Medications Inactive Administered Medications - up to 3 most recent administrations Medication Order MAR Action Action Date Dose Rate Site acetaminophen (Tylenol) tablet 650 mg 650 mg, Oral, EVERY 4 HOURS PRN, Starting on Fri10/21/23 at 1519, Until Fri10/22/23 at 1321, Pain, Fever, Mild-moderate pain (1-6), Maximum dose of acetaminophen is 4000 mg from all sources in 24 hours. When ordered for pain, acetaminophen should be given even when other ordered pain medications are indicated., Recovery (Recovery-Hospital Unit), Routine Given 10/22/2023 6:14 AM EST 650 mg Given 10/22/2023 2:18 AM EST 650 mg Given 10/21/2023 7:41 PM EST 650 mg aspirin EC tablet 81 mg 81 mg, Oral, DAILY, First dose on Fri10/20/23 at 1400, Until Discontinued, Routine Given 10/22/2023 8:28 AM EST 81 mg Given 10/21/2023 8:57 AM EST 81 mg Given 10/20/2023 2:00 PM EST 81 mg dextrose 10% infusion 250 mL, at 1,000 mL/hr, Intravenous, EVERY 15 MIN PRN, Starting on Fri10/20/23 at 1304, Until Fri10/22/23 at 1321, For BG 50-70 mg/dL: Oral treatment preferred: If able to drink, give 120 mL juice or regular (not diet) soda OR if NPO, give 15 gram glucose 40% oral gel massaged into buccal mucosa OR if unconscious or uncooperative, give 25 gram (250 mL) dextrose 10% IV over 15 minutes per protocol OR, if no IV access, 1 mg glucagon IM. For BG less than 50 mg/dL: Oral treatment preferred: If able to drink, give 240 mL juice or regular (not diet) soda OR if NPO, give 30 gram glucose 40% oral gel massaged in buccal mucosa OR if unconscious or uncooperative, give 25 gram (250 mL) dextrose 10% IV over 15 minutes per protocol OR, if no IV access, 1 mg glucagon IM. Recheck BG in 15 minutes. May repeat juice/soda, gel, dextrose or glucagon once per episode. Notify provider if hypoglycemia does not resolve after two treatments. Providers should consider the following: administering longer-acting treatments for the duration of active insulin or hypoglycemia agent for persistent hypoglycemia and re-evaluating active insulin orders before administering the next dose. glucagon (Glucagen) (1 mg/mL) injection solution 1 mg 1 mg, Intramuscular, EVERY 15 MIN PRN, Starting on Fri10/20/23 at 1304, Until Fri10/22/23 at 1321, Low blood sugar, For BG 50-70 mg/dL: Oral treatment preferred: If able to drink, give 120 mL juice or regular (not diet) soda OR if NPO, give 15 gram glucose 40% oral gel massaged into buccal mucosa OR if unconscious or uncooperative, give 25 gram (250 mL) dextrose 10% IV over 15 minutes per protocol OR, if no IV access, 1 mg glucagon IM. For BG less than 50 mg/dL: Oral treatment preferred: If able to drink, give 240 mL juice or regular (not diet) soda OR if NPO, give 30 gram glucose 40% oral gel massaged in buccal mucosa OR if unconscious or uncooperative, give 25 gram (250 mL) dextrose 10% IV over 15 minutes per protocol OR, if no IV access, 1 mg glucagon IM. Recheck BG in 15 minutes. May repeat juice/soda, gel, dextrose or glucagon once per episode. Notify provider if hypoglycemia does not resolve after two treatments. Providers should consider the following: administering longer-acting treatments for the duration of active insulin or hypoglycemia agent for persistent hypoglycemia and re-evaluating active insulin orders before administering the next dose., Routine glucose (Glutose) 40% oral geL 15-30 g of glucose, Buccal, EVERY 15 MIN PRN, Starting on Fri10/20/23 at 1304, Until Fri10/22/23 at 1321, Low blood sugar, For BG 50-70 mg/dL: Oral treatment preferred: If able to drink, give 120 mL juice or regular (not diet) soda OR if NPO, give 15 gram glucose 40% oral gel massaged into buccal mucosa OR if unconscious or uncooperative, give 25 gram (250 mL) dextrose 10% IV over 15 minutes per protocol OR, if no IV access, 1 mg glucagon IM. For BG less than 50 mg/dL: Oral treatment preferred: If able to drink, give 240 mL juice or regular (not diet) soda OR if NPO, give 30 gram glucose 40% oral gel massaged in buccal mucosa OR if unconscious or uncooperative, give 25 gram (250 mL) dextrose 10% IV over 15 minutes per protocol OR, if no IV access, 1 mg glucagon IM. Recheck BG in 15 minutes. May repeat juice/soda, gel, dextrose or glucagon once per episode. Notify provider if hypoglycemia does not resolve after two treatments. Providers should consider the following: administering longer-acting treatments for the duration of active insulin or hypoglycemia agent for persistent hypoglycemia and re-evaluating active insulin orders before administering the next dose. 1 tube of Glutose-15 contains 15 grams of glucose (net weight of tube = 37.5 grams.), Routine insulin lispro (HumaLOG;Admelog) (100 unit/mL) subcutaneous injection vial 1-4 Units 1-4 Units, Subcutaneous, 3 TIMES DAILY BEFORE MEALS, First dose on Fri10/20/23 at 1630, Until Discontinued, CORRECTION BOLUS [1-4 Units] Sensitive Sliding Scale (BG in mg/dL): Correction factor 40 (1 unit of insulin is expected to drop the glucose 40 mg/dL) ?? BG 160 - 200 Give 1 unit BG 201 - 240 Give 2 units BG 241 - 280 Give 3 units and recheck BG in 2 hours. BG greater than 280, give 4 units and recheck BG in 2 hours. - If recheck BG is LESS than 280, give no insulin and resume schedule - If recheck BG is GREATER than or EQUAL to 280, give 4 units and repeat BG in 2 hours & call for new insulin orders. DO NOT hold if NPO, unless specifically told to do so. ?? Per Inpatient Subcutaneous Insulin Policy, recheck a BG of greater than 240 mg/dL in 2 hours., Routine magnesium oxide (Mag-Ox) tablet 800 mg 800 mg, Oral, DAILY PRN, Starting on Fri10/20/23 at 1434, Until Fri10/22/23 at 1321, Hypomagnesemia, Administer for serum magnesium of 0.5 - 0.79 mMol/L, Routine Given 10/22/2023 6:15 AM EST 800 mg Given 10/20/2023 4:37 PM EST 800 mg potassium phosphate 10 mMol in sodium chloride 0.9% 100 mL infusion 10 mmol, Intravenous, EVERY 4 HOURS PRN, Starting on Fri10/20/23 at 1449, Until Fri10/22/23 at 1321, Administer over 4 Hours, Hypophosphatemia, Administer one 10 mmol bag, over 4 hours for serum phosphate 2-2.4 mg/dL. sodium chloride 0.9 % (flush) (BD PosiFlush Normal Saline 0.9) flush 5 mL 5 mL, Intravenous, 2 TIMES DAILY, First dose on Fri10/20/23 at 1400, Until Discontinued, Routine Given 10/22/2023 8:29 AM EST 5 mLs Given 10/21/2023 9:33 PM EST 5 mLs Given 10/21/2023 8:58 AM EST 5 mLs documented in this encounter Active and Recently Administered Medications Times are shown in EST. Scheduled Medication Order 10/20/2023 10/21/2023 10/22/2023 aspirin EC tablet 81 mg 81 mg, Oral, DAILY, First dose on Fri10/20/23 at 1400, Until Discontinued, Routine 1400 (Given - Provider: Alyssa Shearer RN) 0857 (Given - Provider: Gracie Harding RN)1310 (NOV Hold - Provider: Admin Adt - Reason: Transfer to a Procedural area)1517 (NOV Unhold - Provider: Admin Adt) 0828 (Given - Provider: Ana Durham RN) BUpivacaine (pf) (Marcaine) (5 mg/mL) 0.5% injection 150 mg (COMPLETED) 150 mg (30 mL), Subcutaneous, ONCE, 1 dose, On Fri10/21/23 at 1400, EP (Intra-Procedure), Routine 1345 (Given - Provider: Eugenia Sosa, FRANCESCA) calcium gluconate 1g in sodium chloride 0.9% 50mL (COMPLETED) 1 g, Intravenous, ONCE, 1 dose, On Fri10/20/23 at 1345, Administer over 60 Minutes, Warning Vesicant/Irritant Medication 1345 (New Bag - Provider: Alyssa Shearer RN)1445 (Stopped - Provider: Alyssa Shearer RN) calcium gluconate 1g in sodium chloride 0.9% 50mL (COMPLETED) 1 g, Intravenous, ONCE, 1 dose, On Fri10/20/23 at 1345, Administer over 60 Minutes, Warning Vesicant/Irritant Medication 1741 (New Bag - Provider: Alyssa Shearer RN)1841 (Stopped - Provider: Alyssa Shearer RN) calcium gluconate 1g in sodium chloride 0.9% 50mL (COMPLETED) 1 g, Intravenous, ONCE, 1 dose, On Fri10/20/23 at 1345, Administer over 60 Minutes, Warning Vesicant/Irritant Medication 1634 (New Bag - Provider: Alyssa Shearer RN)1734 (Stopped - Provider: Alyssa Shearer RN) calcium gluconate 1g in sodium chloride 0.9% 50mL (COMPLETED) 1 g, Intravenous, ONCE, 1 dose, On Fri10/20/23 at 1345, Administer over 60 Minutes, Warning Vesicant/Irritant Medication 1345 (New Bag - Provider: Alsysa L Janki, RN)1445 (Stopped - Provider: Alyssa Shearer RN) enoxaparin (Lovenox) (40 mg/0.4 mL) subcutaneous injection 40 mg (CANCELED) 40 mg, Subcutaneous, NIGHTLY, First dose on Fri10/20/23 at 2100, Until Discontinued, Routine 2103 (Given - Provider: Kayla Sánchez, RN) glucagon (Glucagen) (1 mg/mL) injection solution 3 mg (COMPLETED) 3 mg, Intravenous, ONCE, 1 dose, On Fri10/20/23 at 1345, Routine 1637 (Given - Provider: Alyssa Shearer RN) insulin lispro (HumaLOG;Admelog) (100 unit/mL) subcutaneous injection vial 0-8 Units 0-8 Units, Subcutaneous, 3 TIMES DAILY WITH MEALS, First dose on Fri10/20/23 at 1400, Until Discontinued, [employer] Give 1 unit for every 10 grams carbohydrate. Hold if not eating or if BG less than 70 mg/dL. , Routine 1400 (Not Given - Provider: Alyssa Shearer RN - Reason: Order parameters not met)1700 (Not Given - Provider: Alyssa Shearer RN - Reason: Patient/family refused) 0800 (Not Given - Provider: Gracie Harding RN - Reason: Order parameters not met)1200 (Not Given - Provider: Gracie Harding RN - Reason: NPO)1310 (MAR Hold - Provider: Admin Adt - Reason: Transfer to a Procedural area)1517 (MAR Unhold - Provider: Admin Adt)1759 (Not Given - Provider: Graice Harding RN - Reason: Order parameters not met) 0800 (Not Given - Provider: Ana Durham RN - Reason: NPO) insulin lispro (HumaLOG;Admelog) (100 unit/mL) subcutaneous injection vial 1-4 Units(Linked Group 1) 1-4 Units, Subcutaneous, 3 TIMES DAILY BEFORE MEALS, First dose on Fri10/20/23 at 1630, Until Discontinued, CORRECTION BOLUS [1-4 Units] Sensitive Sliding Scale (BG in mg/dL): Correction factor 40 (1 unit of insulin is expected to drop the glucose 40 mg/dL) ?? BG 160 - 200 Give 1 unit BG 201 - 240 Give 2 units BG 241 - 280 Give 3 units and recheck BG in 2 hours. BG greater than 280, give 4 units and recheck BG in 2 hours. - If recheck BG is LESS than 280, give no insulin and resume schedule - If recheck BG is GREATER than or EQUAL to 280, give 4 units and repeat BG in 2 hours & call for new insulin orders. DO NOT hold if NPO, unless specifically told to do so. ?? Per Inpatient Subcutaneous Insulin Policy, recheck a BG of greater than 240 mg/dL in 2 hours., Routine 1630 (Not Given - Provider: Alyssa Shearer, RN - Reason: Order parameters not met) 0730 (Not Given - Provider: Gracie Harding RN - Reason: Order parameters not met)1132 (Not Given - Provider: Gracie Harding RN - Reason: Order parameters not met)1310 (MAR Hold - Provider: Admin Adt - Reason: Transfer to a Procedural area)1517 (MAR Unhold - Provider: Admin Adt)1630 (Not Given - Provider: Gracie Harding RN - Reason: Order parameters not met) 0730 (Not Given - Provider: Ana Durham RN - Reason: Patient/family refused) lidocaine (Xylocaine) (20 mg/mL) 2% injection 400 mg (COMPLETED) 400 mg (20 mL), Subcutaneous, ONCE, 1 dose, On Fri10/21/23 at 1400, EP (Intra-Procedure), Routine 1345 (Given - Provider: Eugenia Sosa, FRANCESCA) magnesium sulfate 2 g in sterile water 50 mL infusion 2 g, Intravenous, ONCE, 1 dose, On Fri10/22/23 at 1000, Administer over 120 Minutes 1001 (New Bag - Provider: Ana Durham, FRANCESCA)1201 (Due: Stopped - Provider: Ana Durham RN) potassium phosphate 15 mMol in sodium chloride 0.9% 250 mL infusion (COMPLETED) 15 mmol, Intravenous, ONCE, 1 dose, On Fri10/20/23 at 1730, Administer over 4 Hours, Administer over 4-6 hours 1849 (New Bag - Provider: Alyssa Shearer, RN)2249 (Stopped - Provider: Kayla Sánchez, FRANCESCA) sodium chloride 0.9 % (flush) (BD PosiFlush Normal Saline 0.9) flush 5 mL 5 mL, Intravenous, 2 TIMES DAILY, First dose on Fri10/20/23 at 1400, Until Discontinued, Routine 1400 (Given - Provider: Alyssa Shearer RN)210 (Given - Provider: Kayla Sánchez RN) 0858 (Given - Provider: Gracie Harding RN)1310 (NOV Hold - Provider: Admin Adt - Reason: Transfer to a Procedural area)1517 (NOV Unhold - Provider: Admin Adt)2133 (Given - Provider: Marcio Sibley RN) 0829 (Given - Provider: Ana Durham RN) vancomycin (Vancocin) 1.25 gram in sodium chloride 0.9% 250 mL infusion 1,250 mg (rounded from 1,156.5 mg = 15 mg/kg/dose ? 77.1 kg), Intravenous, at 200 mL/hr, ONCE, 1 dose, On Fri10/21/23 at 1400, For use in the electrophysiology lab (EP lab) only with direct provider supervision and verbal order., EP (Intra-Procedure), Routine 1400 (Hold - Provider: Gracie Harding RN - Reason: See comment - Comment: EP lab) vancomycin (Vancocin) injection 1,000 mg (COMPLETED) 1,000 mg (1 g), Topical (Top), ONCE, 1 dose, On Fri10/21/23 at 1400, Warning Vesicant/Irritant Medication , EP (Intra-Procedure), Routine, Indication for (Active or Suspected): Prophylaxis 1346 (Given - Provider: Eugenia Sosa, FRANCESCA) PRN Medication Order 10/20/2023 10/21/2023 10/22/2023 acetaminophen (Tylenol) tablet 650 mg 650 mg, Oral, EVERY 4 HOURS PRN, Starting on Fri10/21/23 at 1519, Until Fri10/22/23 at 1321, Pain, Fever, Mild-moderate pain (1-6), Maximum dose of acetaminophen is 4000 mg from all sources in 24 hours. When ordered for pain, acetaminophen should be given even when other ordered pain medications are indicated., Recovery (Recovery-Hospital Unit), Routine 1940 (Given - Provider: Marcio Sibley RN) 021 (Given - Provider: Marcio Sibley RN)0614 (Given - Provider: Marcio Schwarz V RN) dextrose 10% infusion(Linked Group 2) 250 mL, at 1,000 mL/hr, Intravenous, EVERY 15 MIN PRN, Starting on Fri10/20/23 at 1304, Until Fri10/22/23 at 1321, For BG 50-70 mg/dL: Oral treatment preferred: If able to drink, give 120 mL juice or regular (not diet) soda OR if NPO, give 15 gram glucose 40% oral gel massaged into buccal mucosa OR if unconscious or uncooperative, give 25 gram (250 mL) dextrose 10% IV over 15 minutes per protocol OR, if no IV access, 1 mg glucagon IM. For BG less than 50 mg/dL: Oral treatment preferred: If able to drink, give 240 mL juice or regular (not diet) soda OR if NPO, give 30 gram glucose 40% oral gel massaged in buccal mucosa OR if unconscious or uncooperative, give 25 gram (250 mL) dextrose 10% IV over 15 minutes per protocol OR, if no IV access, 1 mg glucagon IM. Recheck BG in 15 minutes. May repeat juice/soda, gel, dextrose or glucagon once per episode. Notify provider if hypoglycemia does not resolve after two treatments. Providers should consider the following: administering longer-acting treatments for the duration of active insulin or hypoglycemia agent for persistent hypoglycemia and re-evaluating active insulin orders before administering the next dose. 1310 (MAR Hold - Provider: Admin Adt - Reason: Transfer to a Procedural area)1517 (MAR Unhold - Provider: Admin Adt) glucagon (Glucagen) (1 mg/mL) injection solution 1 mg(Linked Group 2) 1 mg, Intramuscular, EVERY 15 MIN PRN, Starting on Fri10/20/23 at 1304, Until Fri10/22/23 at 1321, Low blood sugar, For BG 50-70 mg/dL: Oral treatment preferred: If able to drink, give 120 mL juice or regular (not diet) soda OR if NPO, give 15 gram glucose 40% oral gel massaged into buccal mucosa OR if unconscious or uncooperative, give 25 gram (250 mL) dextrose 10% IV over 15 minutes per protocol OR, if no IV access, 1 mg glucagon IM. For BG less than 50 mg/dL: Oral treatment preferred: If able to drink, give 240 mL juice or regular (not diet) soda OR if NPO, give 30 gram glucose 40% oral gel massaged in buccal mucosa OR if unconscious or uncooperative, give 25 gram (250 mL) dextrose 10% IV over 15 minutes per protocol OR, if no IV access, 1 mg glucagon IM. Recheck BG in 15 minutes. May repeat juice/soda, gel, dextrose or glucagon once per episode. Notify provider if hypoglycemia does not resolve after two treatments. Providers should consider the following: administering longer-acting treatments for the duration of active insulin or hypoglycemia agent for persistent hypoglycemia and re-evaluating active insulin orders before administering the next dose., Routine 1310 (NOV Hold - Provider: Admin Adt - Reason: Transfer to a Procedural area)1517 (NOV Unhold - Provider: Admin Adt) glucose (Glutose) 40% oral geL(Linked Group 2) 15-30 g of glucose, Buccal, EVERY 15 MIN PRN, Starting on Fri10/20/23 at 1304, Until Fri10/22/23 at 1321, Low blood sugar, For BG 50-70 mg/dL: Oral treatment preferred: If able to drink, give 120 mL juice or regular (not diet) soda OR if NPO, give 15 gram glucose 40% oral gel massaged into buccal mucosa OR if unconscious or uncooperative, give 25 gram (250 mL) dextrose 10% IV over 15 minutes per protocol OR, if no IV access, 1 mg glucagon IM. For BG less than 50 mg/dL: Oral treatment preferred: If able to drink, give 240 mL juice or regular (not diet) soda OR if NPO, give 30 gram glucose 40% oral gel massaged in buccal mucosa OR if unconscious or uncooperative, give 25 gram (250 mL) dextrose 10% IV over 15 minutes per protocol OR, if no IV access, 1 mg glucagon IM. Recheck BG in 15 minutes. May repeat juice/soda, gel, dextrose or glucagon once per episode. Notify provider if hypoglycemia does not resolve after two treatments. Providers should consider the following: administering longer-acting treatments for the duration of active insulin or hypoglycemia agent for persistent hypoglycemia and re-evaluating active insulin orders before administering the next dose. 1 tube of Glutose-15 contains 15 grams of glucose (net weight of tube = 37.5 grams.), Routine 1310 ([facility] Hold - Provider: Admin Adt - Reason: Transfer to a Procedural area)1517 ([facility] Unhold - Provider: Admin Adt) lidocaine (Xylocaine) 1% (10 mg/mL) injection 3 mg 3 mg (0.3 mL), Subcutaneous, ONCE PRN, 1 dose, Starting on Fri10/20/23 at 1304, Until Fri10/22/23 at 1321, for discomfort with PIV insertion, Routine 1310 ([facility] Hold - Provider: Admin Adt - Reason: Transfer to a Procedural area)1517 ([facility] Unhold - Provider: Admin Adt) magnesium oxide (Mag-Ox) tablet 800 mg 800 mg, Oral, DAILY PRN, Starting on Fri10/20/23 at 1434, Until Fri10/22/23 at 1321, Hypomagnesemia, Administer for serum magnesium of 0.5 - 0.79 mMol/L, Routine 1637 (Given - Provider: Alyssa Shearer, FRANCESCA) 1310 ([facility] Hold - Provider: Admin Adt - Reason: Transfer to a Procedural area)1517 ([facility] Unhold - Provider: Admin Adt) 0615 (Given - Provider: Marcio Schwarz V RN) nitroGLYcerin (Nitrostat) disintegrating tablet 0.4 mg 0.4 mg, Sublingual, EVERY 5 MIN PRN, Starting on Fri10/20/23 at 1304, Until Fri10/22/23 at 1321, Chest pain, May repeat every 5 minutes for a total of three doses. Notify provider if chest pain not relieved with nitroglycerin. Do not administer nitroglycerin if the patient has received or taken phosphodiesterase (PDE-5) inhibitors such as sildenafil, tadalafil or vardenafil within the last 24 to 72 hours., Routine 1310 ([facility] Hold - Provider: Admin Adt - Reason: Transfer to a Procedural area)1517 ([facility] Unhold - Provider: Admin Adt) perflutren protein-A microsphers (Optison) (0.22 mg/mL) injection 1.8 mL (COMPLETED) 1.8 mL, Intravenous, ONCE PRN, 1 dose, Starting on Fri10/20/23 at 1133, Until Fri10/20/23 at 1058, Per Protocol, Routine 1058 (Given - Provider: Day Roque) potassium phosphate 10 mMol in sodium chloride 0.9% 100 mL infusion 10 mmol, Intravenous, EVERY 4 HOURS PRN, Starting on Fri10/20/23 at 1449, Until Fri10/22/23 at 1321, Administer over 4 Hours, Hypophosphatemia, Administer one 10 mmol bag, over 4 hours for serum phosphate 2-2.4 mg/dL. 1310 ([facility] Hold - Provider: Admin Adt - Reason: Transfer to a Procedural area)1517 ([facility] Unhold - Provider: Admin Adt) sodium chloride 0.9 % (flush) (BD PosiFlush Normal Saline 0.9) flush 5-20 mL 5-20 mL, Intravenous, EVERY 1 MIN PRN, Starting on Fri10/20/23 at 1304, Until Fri10/22/23 at 1321, flush, Flush pertains to all indwelling lines. Flush per protocol found in the job aid using the link provided on this medication record., Routine 1310 ([facility] Hold - Provider: Admin Adt - Reason: Transfer to a Procedural area)1517 ([facility] Unhold - Provider: Admin Adt) Linked Groups Order Group 1: POCT Fingerstick Glucose (CANCELED) Routine, 4 TIMES DAILY BEFORE MEALS & AT BEDTIME, First occurrence on Fri10/20/23 at 1700, Until Specified, Consider choosing FOUR TIMES A DAY BEFORE MEALS AND AT BEDTIME as frequency for: Patients who have good hypoglycemia awareness: -Patients who are eating meals during the day and sleeping at night -Patients who are otherwise stable And insulin lispro (HumaLOG;Admelog) (100 unit/mL) subcutaneous injection vial 1-4 UnitsJump to med 1-4 Units, Subcutaneous, 3 TIMES DAILY BEFORE MEALS, First dose on Fri10/20/23 at 1630, Until Discontinued, CORRECTION BOLUS [1-4 Units] Sensitive Sliding Scale (BG in mg/dL): Correction factor 40 (1 unit of insulin is expected to drop the glucose 40 mg/dL) ?? BG 160 - 200 Give 1 unit BG 201 - 240 Give 2 units BG 241 - 280 Give 3 units and recheck BG in 2 hours. BG greater than 280, give 4 units and recheck BG in 2 hours. - If recheck BG is LESS than 280, give no insulin and resume schedule - If recheck BG is GREATER than or EQUAL to 280, give 4 units and repeat BG in 2 hours & call for new insulin orders. DO NOT hold if NPO, unless specifically told to do so. ?? Per Inpatient Subcutaneous Insulin Policy, recheck a BG of greater than 240 mg/dL in 2 hours., Routine Group 2: glucose (Glutose) 40% oral geLJump to med 15-30 g of glucose, Buccal, EVERY 15 MIN PRN, Starting on Fri10/20/23 at 1304, Until Fri10/22/23 at 1321, Low blood sugar, For BG 50-70 mg/dL: Oral treatment preferred: If able to drink, give 120 mL juice or regular (not diet) soda OR if NPO, give 15 gram glucose 40% oral gel massaged into buccal mucosa OR if unconscious or uncooperative, give 25 gram (250 mL) dextrose 10% IV over 15 minutes per protocol OR, if no IV access, 1 mg glucagon IM. For BG less than 50 mg/dL: Oral treatment preferred: If able to drink, give 240 mL juice or regular (not diet) soda OR if NPO, give 30 gram glucose 40% oral gel massaged in buccal mucosa OR if unconscious or uncooperative, give 25 gram (250 mL) dextrose 10% IV over 15 minutes per protocol OR, if no IV access, 1 mg glucagon IM. Recheck BG in 15 minutes. May repeat juice/soda, gel, dextrose or glucagon once per episode. Notify provider if hypoglycemia does not resolve after two treatments. Providers should consider the following: administering longer-acting treatments for the duration of active insulin or hypoglycemia agent for persistent hypoglycemia and re-evaluating active insulin orders before administering the next dose. 1 tube of Glutose-15 contains 15 grams of glucose (net weight of tube = 37.5 grams.), Routine Or dextrose 10% infusionJump to med 250 mL, at 1,000 mL/hr, Intravenous, EVERY 15 MIN PRN, Starting on Fri10/20/23 at 1304, Until Fri10/22/23 at 1321, For BG 50-70 mg/dL: Oral treatment preferred: If able to drink, give 120 mL juice or regular (not diet) soda OR if NPO, give 15 gram glucose 40% oral gel massaged into buccal mucosa OR if unconscious or uncooperative, give 25 gram (250 mL) dextrose 10% IV over 15 minutes per protocol OR, if no IV access, 1 mg glucagon IM. For BG less than 50 mg/dL: Oral treatment preferred: If able to drink, give 240 mL juice or regular (not diet) soda OR if NPO, give 30 gram glucose 40% oral gel massaged in buccal mucosa OR if unconscious or uncooperative, give 25 gram (250 mL) dextrose 10% IV over 15 minutes per protocol OR, if no IV access, 1 mg glucagon IM. Recheck BG in 15 minutes. May repeat juice/soda, gel, dextrose or glucagon once per episode. Notify provider if hypoglycemia does not resolve after two treatments. Providers should consider the following: administering longer-acting treatments for the duration of active insulin or hypoglycemia agent for persistent hypoglycemia and re-evaluating active insulin orders before administering the next dose. Or glucagon (Glucagen) (1 mg/mL) injection solution 1 mgJump to med 1 mg, Intramuscular, EVERY 15 MIN PRN, Starting on Fri10/20/23 at 1304, Until Fri10/22/23 at 1321, Low blood sugar, For BG 50-70 mg/dL: Oral treatment preferred: If able to drink, give 120 mL juice or regular (not diet) soda OR if NPO, give 15 gram glucose 40% oral gel massaged into buccal mucosa OR if unconscious or uncooperative, give 25 gram (250 mL) dextrose 10% IV over 15 minutes per protocol OR, if no IV access, 1 mg glucagon IM. For BG less than 50 mg/dL: Oral treatment preferred: If able to drink, give 240 mL juice or regular (not diet) soda OR if NPO, give 30 gram glucose 40% oral gel massaged in buccal mucosa OR if unconscious or uncooperative, give 25 gram (250 mL) dextrose 10% IV over 15 minutes per protocol OR, if no IV access, 1 mg glucagon IM. Recheck BG in 15 minutes. May repeat juice/soda, gel, dextrose or glucagon once per episode. Notify provider if hypoglycemia does not resolve after two treatments. Providers should consider the following: administering longer-acting treatments for the duration of active insulin or hypoglycemia agent for persistent hypoglycemia and re-evaluating active insulin orders before administering the next dose., Routine documented in this encounter Care Teams Radio Communications Superintendent Relationship Specialty Start Date End Date Marcio Devlin DO [address] [place] [address] PCP - General Family Medicine 11/11/17 documented as of this encounter
--- OUTSIDE RECORDS SUMMARY | 2024-04-08 02:26 | XMS_ITS | Encounter Summary ---
Author Organization [facility] [place] [address] Care Team Providers Care Tax Associate Name Role Phone Marcio Devlin DO Primary Care Provider [phone] Reason for Visit * Reason Onset Date Comments Post Procedure Call 10/31/2023 Encounter Details Date Type Department Care Team (Late st Contact Info) Description 10/31/2023 Notes Only Cardiology at [address] [id number] Veronica Gann, RN Post Procedure Call Social History Tobacco Use Types Packs/Day Years Used Date Smoking Tobacco: Never Smokeless Tobacco: Never Alcohol Use Standard Drinks/Week Comments Yes 0 (1 standard drink = 0.6 oz pure alcohol) once every couple of months or less [facility] Utilities Answer Date Recorded In the past 12 months has [employer], gas, oil, or water [employer] threatened to shut off services in your [...] place to sleep or slept in a prison (including now)? No 10/21/2023 DH IPV Inpatient [...] as of this encounter Progress Notes * Veronica Gann RN - 10/31/2023 11:59 PM ESTSummary: Post Procedure Call: Pacemaker Implant EP RN Post-Procedure Note: Date of Follow Up Call: 10/31/2023 Spoke With: Patient Procedure Type (choose all that apply): Pacemaker Leadless Pacemaker: No Performing MD: Ata Date of Procedure: 10/21/2023 Date of Discharge: 10/22/2023 Follow Up EP Visit Scheduled?: Yes Date of EP Visit: 11/04/2023 Intra or Post Procedure Event: Did any Intra or Post Procedure Events Occur?: No Medications at Hospital Discharge: Aspirin: Yes P2Y12 Inhibitor: No Other Antiplatelet: No Warfarin: No DOAC: No Other Anticoagulant: No Beta Christina (any): No Digoxin: No Diltiazem/Verapamil: No Amiodarone: No Dofetilide: No Dronedarone: No Flecainide: No Propafenone: No Sotalol: No PPI: Yes Other Antiarrhythmic: No Assessment: Access Site Assessment (Choose all that apply): None of the above Device Pocket Assessment (Choose all that apply): None of the above UTI symptoms (Choose all that apply): None of the above Signs and Symptoms of Infection (Choose all that apply): None of the above Complaints of: (choose all that apply): None of the above Free Text Note: Follow Up Instruction: Wound Care: -Wound will heal in approx 7-10 days.It may be tender, it may appear slightly red and bumpy and there may -be dry, crusty scabbing. These are all normal. -Inspect the wound for signs of infection which can be drainage, swelling, warmth or increased painor redness. - Do not scratch or rub the wound or apply any creams, lotions or ointments on the wound until it is completely healed. - You may cover the wound with gauze if it rubs on clothing and causes you discomfort. - Avoid direct water pressure on the wound - continue this for 7 - 10 days. Do not submerge wound for 14 days - Do not scrub or wash would if Dermabond is used - You may remove your dressing on: October 28 Arm Restrictions: - Do not raise your elbow on the operated side above the shoulder for 6 weeks - Do not lift greater than 7 pounds (equal to a gallon of milk) on the operated side for 6 weeks. - Do not fully extend this arm in any direction away from the torso for 6 weeks - You may use your arm on the operated side, but do not make extreme movement (such as stretching or reaching for a heavy object) for 6 weeks - No driving for maximum of 1 week documented in this encounter Plan of Treatment Upcoming Encounters Date Type Department Care Team (Late st Contact Info) Description 04/19/2024 10:00 AM EDT Hospital Encounter Non-[place] [phone] Arrived 04/29/2024 9:50 AM EDT Appointment MRI at [place] [phone] Luis Alfredo Velazquez MD [facility] [place] [address] 04/29/2024 9:50 AM EDT Appointment MRI at [place] [address] Luis Alfredo Velazquez MD [facility] [place] [address] 06/07/2024 2:30 PM EDT TH Visit (TeleHealth) Gastroenterology at [address] Dajuan Rachel MD [facility] [place] [address] 07/02/2024 2:00 PM EDT Appointment Non-Invasive Cardiology Lab [address] Luis Alfredo Velazquez MD [facility] [place] [address] 07/02/2024 4:40 PM EDT Office Visit Cardiology at [place] [phone] Luis Alfredo Velazquez MD [facility] [place] [address] documented as of this encounter Visit Diagnoses Not on filedocumented in this encounter Care Teams Tax Associate Relationship Specialty Start Date End Date Marcio Devlin DO [address] [place] [id number] PCP - General Family Medicine 11/11/17 documented as of this encounter
--- OUTSIDE RECORDS SUMMARY | 2024-04-08 02:26 | XMS_ITS | Encounter Summary ---
Author Organization [facility] [place] [address] Care Team Providers Care Hospital Wellness Coordinator Name Role Phone Marcio Devlin DO Primary Care Provider [phone] Reason for Visit * Auth/Cert (Routine) Specialty Diagnoses / Procedures Referred By Contac t Referred To Contact Diagnoses Complete heart block Bradycardia Procedures EMERGENCY AMARILISI Elle Lin MD [facility] [place] [address] [facility] Referral ID Status Reason Start Date Expiration Date Visits Re quested Visits Authorized [id number] 1 1 Encounter Details Date Type Department Care Team (Late st Contact Info) Description 10/21/2023 1:05 PM EST Anesthesia Event [place] [address] Davonte Raymond MD [facility] [address] Rex Johns CRNA [facility] [place] [address] Anesthesia Record Procedure Summary Procedure Name Responsible Anesthesiologist Anesthesia Start Time Anesthesia Stop Time ELECTROPHYSIOLOGY PROCEDURE (Left) Davonte Raymond MD 10/21/23 1305 10/21/23 1513 Events Date Time Event Comment 10/21/2023 0122 1305 AN Verify 1305 Start 1305 An Start Data 1322 An Induction 1325 Anesthesia Ready 1513 an stop data 1513 Recovery or ICU Handoff Lorena ent care was transferred to the destination unit staff after review of the patient's medical history, current anesthetic/surgical status and plan, according to the Provider Handoff Checklist. 1513 Stop Meds Name Total Propofol 130 mg ePHEDrine 60 mg Ondansetron 8 mg vancomycin 1.25 g propofol INF 567.78 mg meTOPROLOL (LOPRESSOR) 2.5 mg * Agents Name O2 * Blood No blood administrations on file. Lines, Drains, and Airways Type Details Placement Removal PIV 10/20/23; 0900; 20 g auge; median cubital vein (antecubital fossa), right; OSH; 10/22/23; 1033 10/20/23 0900 by Alyssa Shearer RN 10/22/23 1033 by Ana Durham RN PIV 10/20/23; 0900; 20 g auge; median cubital vein (antecubital fossa), left; OSH; 10/22/23; 1033 10/20/23 0900 by Alyssa Shearer RN 10/22/23 1033 by Ana Durham RN Incision 10/21/23; 1345; Left , upper; chest; horizontal; 10/22/23; 1034 10/21/23 1345 by Eugenia Sosa RN 10/22/23 1034 by Ana Durham, FRANCESCA documented in this encounter Social History Tobacco Use Types Packs/Day Years Used Date Smoking Tobacco: Never Smokeless Tobacco: Never Alcohol Use Standard Drinks/Week Comments Yes 0 (1 standard drink = 0.6 oz pure alcohol) once every couple of months or less [facility] Utilities Answer Date Recorded In the past 12 months has [employer], gas, oil, or water [employer] threatened to shut off services in your [...] in a prison (including now)? No 10/21/2023 IPV Inpatient Questions [...] PM EDT documented as of this encounter OR Notes * Anesthesia Postprocedure Evaluation - Davonte Raymond MD - 10/21/2023 3:37 PM EST Department of Anesthesiology Post-procedure Note Patient: Kim Funes Procedure Summary Date: 10/21/23 Room / Location: EP A-LAB ROOM 3 / [facility] EP LABS Anesthesia Start: 1305 Anesthesia Stop: 1513 Procedure: ELECTROPHYSIOLOGY PROCEDURE (Left) Diagnosis: (AFIB) Providers: Dilip Berumen MD Responsible Provider: Davonte Raymond MD Anesthesia Type: MAC ASA Status: 3 All Anesthesia Providers: Anesthesiologist: Davonte Raymond MD Heel Stiffener: Ofelia Manuel MD Vitals Value Taken Time BP Temp Pulse Resp SpO2 Pain Level Patient Location: [facility] Level of Consciousness: Awake and Alert Pain Management: Satisfactory Analgesia PONV: None Cardiovascular Status: Hemodynamically Stable Respiratory Status: Supplemental O2 (NC or FM) and Stable Respiratory Status Postoperative Fluid Status: Intravascular EUvolemia Possible Anesthetic Complications: NONE apparent at time of evaluation Final Primary Anesthesia Type: MAC (The anesthetic type performed was the same as planned.) Comments: * Anesthesia Preprocedure Evaluation - Davonte Raymond MD - 10/21/2023 1:06 PM EST Pre-Anesthesia Evaluation for: Kim Funes a 63 y.o. female. 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 Shady Luz at [facility]) for surveillance for dysplasia. Areas of skip inflammation without ulceration in the transverse colon, descending colon, and the rectosigmoid. Upon attempt at retroflexion, a rectal mucosal tear requiring subsequent admission with 10 d Past Surgical History: Procedure Laterality Date CREATED BY INTERFACE COLONOSCOPY WITH BIOPSY Procedure Date: 03/04/1994 CREATED BY INTERFACE COLONOSCOPY-BIOPSY Procedure Date: 06/22/2002 CREATED BY INTERFACE LIVER BIOPSY,ENDOSCOPIC Procedure Date: 04/04/2010 CREATED BY INTERFACE TOTAL HIP ARTHROPLASTY / LEFT/PINNACLE AC/S-ROM ACETA/S-ROM FEMOR Procedure Date: 03/17/2006 ORTHOPEDIC SURGERY THR 2006 PRO COLONOSCOPY, BIOPSY 01/02/2011 COLONOSCOPY FLEXIBLE, WITH BX performed by YAQUELIN ESTRADA at [facility] ENDOSCOPY PRO COLONOSCOPY, BIOPSY N/A 03/04/2017 COLONOSCOPY FLEXIBLE, WITH BX (WRVU 3.66) performed by Raúl Austin MD at [facility] ENDOSCOPY PRO COLONOSCOPY, BIOPSY N/A 11/09/2019 COLONOSCOPY FLEXIBLE, WITH BX (WRVU 3.66) performed by Froilan Sahni MD at [facility] ENDOSCOPY PRO COLONOSCOPY, BIOPSY N/A 12/19/2020 COLONOSCOPY FLEXIBLE, WITH BX (WRVU 3.66) performed by Dajuan Rachel MD at [facility] ENDOSCOPY PRO COLONOSCOPY, BIOPSY N/A 09/24/2022 COLONOSCOPY FLEXIBLE, WITH BX (WRVU 3.66) performed by Dajuan Rachel MD at [facility] ENDOSCOPY PRO COLONOSCOPY, BIOPSY N/A 09/18/2023 COLONOSCOPY FLEXIBLE, WITH BX (WRVU 3.56) performed by Dajuan Rachel MD at [facility] ENDOSCOPY PRO COLONOSCOPY, DIAGNOSTIC N/A 11/09/2019 COLONOSCOPY, DIAGNOSTIC performed by Froilan Sahni MD at [facility] ENDOSCOPY PRO COLONOSCOPY, REMV LESN, SNARE 01/02/2011 COLONOSCOPY, POLYPECTOMY, REMOVAL LESION BY SNARE performed by YAQUELIN ESTRADA at [facility] ENDOSCOPY PRO COLONOSCOPY, REMV LESN, SNARE N/A 03/04/2017 COLONOSCOPY, POLYPECTOMY, REMOVAL LESION BY SNARE (WRVU 4.67) performed by Raúl Austin MD at [facility] ENDOSCOPY PRO COLONOSCOPY, REMV LESN, SNARE N/A 09/24/2022 COLONOSCOPY, POLYPECTOMY, REMOVAL LESION BY SNARE (WRVU 4.67) performed by Dajuan Rachel MD at [facility] ENDOSCOPY PRO COMBINED ANT/POST COLPORRHAPHY W CYSTO N/A 03/10/2018 COLPORRHAPHY ANTERIOR-POSTERIOR; INC CYSTOURETHROSCOPY (WRVU 14.44) performed by Liang Fong MD at [facility] MAIN OR PRO REVAGINAL PROLAPSE, UTEROSACRAL N/A 03/10/2018 COLPOPEXY, VAGINAL, INTRAPERITONEAL APPROACH (WRVU 11.66) [facility] SLING OPER STRES INCONTINENCE N/A 03/10/2018 URETHRAL SUSPENSION, SLING\FASCIA OR SYNTHETIC (WRVU 12.13) performed by Liang Fong MD at [facility] MAIN OR PRO VAG HYST, RMV TUBE/OVARY N/A 03/10/2018 HYSTERECTOMY, VAGINAL, REMOVAL TUBE(S) & OR OVARY(S) (WRVU 15.94) performed by Liang Fong MD at [facility] MAIN OR SALPINGECTOMY XR FLUORO INJECTION DRAINAGE JOINT LG RIGHT Right 03/09/2019 XR Fluoro Guided Joint Injection Large Right 03/09/2019 [facility] RAD XRAY Social History Tobacco Use Smoking status: Never Smokeless tobacco: Never Substance Use Topics Alcohol use: Yes Comment: once every couple of months or less Social History Substance and Sexual Activity Drug Use No Allergies Allergen Reactions Ibuprofen chest pains, Patient reported Celebrex [Celecoxib] Rash Lodine [Etodolac] Itching Amoxicillin-Pot Clavulanate Nausea And Vomiting Nausea/Vomiting, patient reported Cephalexin Nausea And Vomiting Nausea/Vomiting, Patient reported Doxycycline Nausea And Vomiting Nausea/Vomiting, Patient reported Medications: MAR and/or home medications have been reviewed. Physical Exam: Preprocedure Vitals Current as of 10/21/23 1305 BP: 108/47 Pulse: 33 Resp: 24 SpO2: 96 Temp: Height: 165.1 cm (5' 5) (10/20/23) Weight: 77.1 kg (170 lb) (10/20/23) BMI: 28.29 IBW: 57 kg (125 lb 10.6 oz) Last edited 10/21/23 1200 by Airway Assessment: Mallampati: I Cardiovascular Assessment: Rhythm: regular Rate: abnormal PE comment: Severe bradycardia, CHB on monitor Pulmonary Assessment: unlabored breathing Dental Assessment: - normal exam Misc Assessment: IV access: Peripheral line Last Filed Perioperative Cognitive Screening None Anesthesia Plan: ASA 3 MAC, with a(n) intravenous induction 63 y.o.female (77 kg/BMI 29) h/o HTN, GERD, UC, ankylosing spondylitis s.p cervical fusion who p/w CHB now scheduled for PPM placement. Patient denies significant GERD, recent URI symptoms and is appropriately NPO. Activity status: ADR: -- Ibuprofen -- chest pains, Patient reported -- Celebrex [Celecoxib] -- Rash -- Lodine [Etodolac] -- Itching -- Amoxicillin-Pot Clavulanate -- Nausea And Vomiting -- Nausea/Vomiting, patient reported -- Cephalexin -- Nausea And Vomiting -- Nausea/Vomiting, Patient reported -- Doxycycline -- Nausea And Vomiting -- Nausea/Vomiting, Patient reported Recent Labs: Lab Results Component Value Date WBC 6.8 10/21/2023 RBC 4.06 10/21/2023 HGB 12.6 10/21/2023 HCT 38.1 10/21/2023 MCV 93.8 10/21/2023 MCH 31.0 10/21/2023 MCHC 33.1 10/21/2023 PLATELET 211 10/21/2023 RDWCV 14.5 (H) 10/21/2023 Lab Results Component Value Date/Time NA 143 10/21/2023 07:55 AM K 4.2 10/21/2023 07:55 AM CL 111 (H) 10/21/2023 07:55 AM CO2 21 (L) 10/21/2023 07:55 AM BUN 23 (H) 10/21/2023 07:55 AM CREATININE 1.18 10/21/2023 07:55 AM Anesthetic Hx: Multiple GA Airway Hx: Difficult airway flag noted, EZ mask, previously intubated with VL with G2V in past, also iGel 3 Plan: MAC with GA backup, PIV access The patient was informed of the risks, benefits and alternatives of anesthesia. These risks included, but were not limited to, prolonged intubation, post- operative nausea and/or vomiting, pain, sore throat, dental/lip trauma, and other rare but serious complications such as major organ damage, awareness, severe allergic reactions, position-related nerve injuries, and need blood transfusions. The patient accepts that additional procedures and/or escalation of care may be necessary as dictated bythe course of the procedure/anesthetic. All questions sought and answered. Consent was signed and placed in chart. Region - Other Informed Consent: Anesthetic plan and risks discussed with patient. Plan discussed with resident. Anesthesia Screening documented in this encounter Plan of Treatment Upcoming Encounters Date Type Department Care Team (Late st Contact Info) Description 04/19/2024 10:00 AM EDT Hospital Encounter Non[place] [address] Arrived 04/29/2024 9:50 AM [place] [address] Luis Alfredo Velazquez MD [facility] [place] [address] 04/29/2024 9:50 [place] [address] Luis Alfredo Velazquez MD [facility] [place] [address] 06/07/2024 2:30 PM EDT TH Visit (TeleHealth) [place] [phone] Dajuan Rachel MD [facility] [place] [address] 07/02/2024 2:00 PM EDT Appointment Non-[place] [phone] Luis Alfredo Velazquez MD [facility] [place] [address] 07/02/2024 4:40 PM EDT Office Visit Cardiology at [address] [phone] Luis Alfredo Velazquez MD [facility] [place] [address] documented as of this encounter Visit Diagnoses Not on filedocumented in this encounter Administered Medications Inactive Administered Medications - up to 3 most recent administrations Medication Order MAR Action Action Date Dose Rate Site ePHEDrine sulfate (5 mg/mL) multi-dose injection Intravenous, PRN, Starting on Fri10/21/23 at 1335, Until Fri10/21/23 at 1513, Anesthesia Intra-op, Routine Given 10/21/2023 2:26 PM EST 10 mg Given 10/21/2023 2:21 PM EST 10 mg Given 10/21/2023 2:15 PM EST 10 mg metoprolol (LOPRESSOR) injection Intravenous, PRN, Starting on Fri10/21/23 at 1442, Until Tu10/21/23 at 1513, Anesthesia Intra-op, Routine Given 10/21/2023 2:42 PM EST 2.5 mg ondansetron (pf) (Zofran) (2 mg/mL) injection Intravenous, PRN, Starting on Fri10/21/23 at 1447, Until Tu10/21/23 at 1513, Anesthesia Intra-op, Routine Given 10/21/2023 2:47 PM EST 8 mg propofoL (Diprivan) (10 mg/mL) infusion Intravenous, CONTINUOUS PRN, Starting on Fri10/21/23 at 1322, Until Tu10/21/23 at 1513, Anesthesia Intra-op, Routine Rate/Dose Change 10/21/2023 2:58 PM EST 50 mcg/kg/min 19.5 mL/hr Rate/Dose Change 10/21/2023 2:45 PM EST 100 mcg/kg/min 39 mL/hr Rate/Dose Change 10/21/2023 1:49 PM EST 90 mcg/kg/min 35.1 mL/hr propofoL (Diprivan) 10 mg/mL bolus injection (Anesthesia) Intravenous, PRN, Starting on Fri10/21/23 at 1322, Until Fri10/21/23 at 1513, Anesthesia Intra-op Given 10/21/2023 2:44 PM EST 20 mg Given 10/21/2023 2:42 PM EST 20 mg Given 10/21/2023 1:49 PM EST 20 mg vancomycin (Vancocin) injection Intravenous, PRN, Starting on Fri10/21/23 at 1336, Until 10/21/23 at 1513, Anesthesia Intra-op, Routine Given 10/21/2023 1:36 PM EST 1.25 g documented in this encounter Care Teams Hospital Wellness Coordinator Relationship Specialty Start Date End Date Marcio Devlin DO [address] [place] [address] PCP - General Family Medicine 11/11/17 documented as of this encounter
--- OUTSIDE RECORDS SUMMARY | 2024-04-08 02:26 | XMS_ITS | Encounter Summary ---
Author Organization [facility] Address [facility] [place] [address] Care Team Providers Care Hot Metal Mixer Operator Helper Name Role Phone Marcio Devlin DO Primary Care Provider [phone] Encounter Details Date Type Department Care Team (Late st Contact Info) Description 11/04/2023 1:00 PM EST Office Visit Cardiology at [address] [address] Lorri Mckinney [place] [facility] [place] [address] Pacemaker [Z95.0] Social History Tobacco Use Types Packs/Day Years Used Date Smoking Tobacco: Never Smokeless Tobacco: Never Alcohol Use Standard Drinks/Week Comments Yes 0 (1 standard drink = 0.6 oz pure alcohol) once every couple of months or less [facility] Utilities Answer Date Recorded In the past 12 months has [employer], gas, oil, or water company threatened [...] place to sleep or slept in a usp (including now)? No 10/21/2023 DH IPV Inpatient [...] Sign Reading Time Taken Comments Blood Pressure 174/73 11/04/2023 12:45 PM EST Pulse 71 11/04/2023 12:45 PM EST Temperature - - Respiratory Rate - - Oxygen Saturation 100% 11/04/2023 12:45 PM EST Inhaled Oxygen Concentration - - Weight 78.9 kg (174 lb) 11/04/2023 12:45 PM EST Height 166.4 cm (5' 5.5) 11/04/2023 12:45 PM ES T Body Mass Index 28.51 11/04/2023 12:45 PM EST documented in this encounter Progress Notes * Lorri Mckinney PA - 11/04/2023 1:00 PM EST Cardiac Electrophysiology Post-Implant Device Interrogation Kim Funes [id number] 11/04/2023 History: Kim Funes is a 63 y.o. female with a history of symptomatic bradycardia secondaryto high grade AV block s/p left-sided dual-chamber [employer] pacemaker on 10/21/23, ulcerative colitis, ankylosing spondylitis, HTN, and HLD, who presents for routine post-implant device check/wound check. Ms. Funes is doing well since discharge, specifically denies acute complaints related to her pacemaker. She has had one episode of fleeting lightheadedness and two instances of twinges of chest pain. She explains that she had not recurrent symptoms like she experienced before her admission. Lives in [facility] with her , Lucien. 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 Physical Exam: Vitals: 11/04/23 1245 BP: 174/73 Pulse: 71 SpO2: 100% Weight: 78.9 kg (174 lb) Height: 166.4 cm (5' 5.5) General- No acute distress, sitting comfortably on exam room chair. Skin- Pocket incision is CDI. Edges are approximated without drainage. Surgical glue is intact. Cardiovascular- Regular rate and regular rhythm. Lungs- Unlabored respiratory effort Neuro- A&Ox3 Echo 10/20/2023: Interpretation Summary Left ventricular size and systolic function is normal. The left ventricular ejection fraction is 67% by Elliott's biplane. There are no segmental wall motion abnormalities. Right ventricular systolic function is normal. No significant valvular disease. No prior studies for comparison. Device Interrogation: Data Soil [employer] Plant Scientist Model # Serial # Generator SCHAD [id number] Atrial Lead [employer] [id number] Ventricular Lead [employer] [id number] Diagnostics Pacing Mode: DDD at LRL 60 bpm Presenting EGMs: /SIGN CARPENTER Underlying Rhythm: sinus rhythm in the 60s without intrinsic ventricular conduction >30 bpm Atrial Episodes: 0 Ventricular Episodes: 0 Atrial Pacin% Ventricular Pacin% Battery and Leads Voltage: not reported Status: 10.5 yrs (after programming) Magnet Rate: 100 bpm Charge Time: N/A Impedances (ohms) Sensing (mV) Thresholds HV RA RV LV RA RV LV RA RV LV N/A 558 718 N/A 5.0 SIGN CARPENTER N/A 0.9V @ 0.4ms 0.4V @ 0.4ms N/A Assessment: 63 y.o. 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 - Appropriate device function post-implant - CXR negative for post-implant complications - Programming Changes: A-Amplitude decreased from 3.5V to 2.0V and V-Amplitude decreased from 3.5V to 2.0V Plan: 1. Reviewed standard post-implant discharge instructions (see patient instructions) including arm restrictions, wound care, bathing, and driving 2. No medication changes. 3. Follow up in device clinic for 90-day wound/device check in [facility] 4. Recommend general cardiology follow-up per Discharge Summary YURIY Alberto 11/04/2023 Pager: [phone] documented in this encounter Plan of Treatment Upcoming Encounters Date Type Department Care Team (Late st Contact Info) Description 04/19/2024 10:00 AM EDT Hospital Encounter Non-[place] [address] Arrived 04/29/2024 9:50 AM EDT [place] [address] Luis Alfredo Velazquez MD [facility] [place] [address] 04/29/2024 9:50 AM EDT [place] [address] Luis lAfredo Velazquez MD [facility] [place] [place] [address] 06/07/2024 2:30 PM EDT TH Visit (TeleHealth) [place] [address] Dajuan Rachel MD [facility] [place] [address] 07/02/2024 2:00 PM EDT Appointment Non-[place] [phone] Luis Alfredo Velazquez MD [facility] [place] [address] 07/02/2024 4:40 PM EDT Office Visit Cardiology at [address] [phone] Luis Alfredo Velazquez MD [facility] [place] [address] documented as of this encounter Visit Diagnoses Diagnosis Pacemaker [Z95.0] Cardiac pacemaker in situ documented in this encounter Care Teams Hot Metal Mixer Operator Helper Relationship Specialty Start Date End Date Marcio Devlin DO [address] [place] [address] PCP - General Family Medicine 11/11/17 documented as of this encounter
--- OUTSIDE RECORDS SUMMARY | 2024-04-08 02:26 | XMS_ITS | Encounter Summary ---
Author Organization [facility] [place] [address] Care Team Providers Care Photoengraver Name Role Phone Marcio Devlin DO Primary Care Provider [phone] Reason for Visit * Reason Onset Date Comments Other 10/22/2023 Implanted Cardia c Device Education Encounter Details Date Type Department Care Team (Late st Contact Info) Description 10/22/2023 Notes Only Cardiology at [address] [address] Rafaela Dillon Other (Implanted Cardiac Device Education) Social History Tobacco Use Types Packs/Day Years Used Date Smoking Tobacco: Never Smokeless Tobacco: Never Alcohol Use Standard Drinks/Week Comments Yes 0 (1 standard drink = 0.6 oz pure alcohol) once every couple of months or less [facility] Utilities Answer Date Recorded In the past 12 months has [employer], gas, oil, or water [employer] threatened to shut off services in your [...] as of this encounter Progress Notes * Rafaela Dillon - 10/22/2023 12:21 PM EST Cardiac Electrophysiology Device Clinic - Post Implant Teaching Note Kim Funes : 1960 AGE: 63 y.o. Education: Reviewed the following topics with patient. - Implant ID card - Implant manual - Electromagnetic Compatibility (EMC) - Remote monitoring Answered all questions and provided implant folder containing written materials of the above topics. Patient demonstrated understanding and was instructed to call the Cardiac Device Clinic at [phone] with any questions. Plan: Post op check: 11/04/23 91 day check: will be scheduled by [facility] Remote monitor: Latitude home monitor provided to patient today. Monitor set up demonstrated. Patient instructed to connect monitor and send manual transmission when they arrive home. Rafaela Dillon 10/22/23 documented in this encounter Plan of Treatment Upcoming Encounters Date Type Department Care Team (Late st Contact Info) Description 04/19/2024 10:00 AM EDT Hospital Encounter Non-[place]vasive [place] [address] Arrived 04/29/2024 9:50 AM [place] [phone] Luis Alfredo Velazquez MD [facility] [place] [address] 04/29/2024 9:50 AM [place] [address] Luis Alfredo Velazquez MD [facility] [place] [address] 06/07/2024 2:30 PM EDT TH Visit (TeleHealth) [place] [address] Dajuan Rachel MD [facility] [place] [address] 07/02/2024 2:00 PM EDT Appointment Non-[place]vasive [place] [phone] Luis Alfredo Velazquez MD [facility] [place] [address] 07/02/2024 4:40 PM EDT Office Visit Cardiology at [address] [phone] Luis Alfredo Velazquez MD [facility] [place] [address] documented as of this encounter Visit Diagnoses Not on filedocumented in this encounter Care Teams Photoengraver Relationship Specialty Start Date End Date Marcio Devlin DO [address] [place] [address] PCP - General Family Medicine 11/11/17 documented as of this encounter
--- OUTSIDE RECORDS SUMMARY | 2024-04-08 02:26 | XMS_ITS | Encounter Summary ---
Author Organization [facility] Address [facility] [place] [address] Care Team Providers Care Alternative Financing Specialist Name Role Phone Marcio Devlin DO Primary Care Provider [phone] Reason for Visit * Auth/Cert (Routine) Specialty Diagnoses / Procedures Referred By Contac t Referred To Contact Diagnoses Ulcerative (chronic) pancolitis with unspecified complications UC surveillance - Rinvoq started 04/2023. PLEASE BOOK FOR SEP 2023 Procedures PRO COLONOSCOPY, DIAGNOSTIC PRO COLONOSCOPY, BIOPSY PRO COLONOSCOPY, REMV LESN, SNARE PRO ANES, LWR INTESTINE, NOS COLONOSCOPY, DIAGNOSTIC (WRVU 3.26) Dajuan Rachel MD [facility] [place] [address] [facility] Referral ID Status Reason Start Date Expiration Date Visits Re quested Visits Authorized [id number] 1 1 Encounter Details Date Type Department Care Team (Latest Contact Info) Description 09/18/2023 1:40 PM EST - 09/18/2023 5:05 PM EST Hospital Encounter [place] [address] Dajuan Rachel MD [facility] [place] [address] Discharge Disposition: Home Social History Tobacco Use [...] in a long term (including now)? No 05/03/2022 Sex and Gender Information Value Date Recorded Sex Assigned at Female 07/21/2021 4:56 PM EDT Gender Identity Female 07/21/2021 4:56 PM EDT Sexual Orientation Straight 07/21/2021 4: 56 PM EDT documented as of this encounter Last Filed Vital Signs Vital Sign Reading Time Taken Comments Blood Pressure 114/66 09/18/2023 4:52 PM EST Pulse 73 09/18/2023 4:30 PM EST Temperature 36.6 ??C (97.8 ??F) 09/18/2023 2:38 PM ES T Respiratory Rate 19 09/18/2023 4:52 PM EST Oxygen Saturation 100% 09/18/2023 4:52 PM EST Inhaled Oxygen Concentration - - Weight 76.7 kg (169 lb) 09/18/2023 2:38 PM EST Height 166.4 cm (5' 5.5) 09/18/2023 2:38 PM EST Body Mass Index 27.7 09/18/2023 2:38 PM EST documented in this encounter Discharge Instructions * Discharge Instructions* Ha Hernandes RN - 09/18/2023 4:31 PM EST Colonoscopy: What to Expect at Home Your Recovery Your doctor will talk to you about when you will need your next colonoscopy. Your doctor can help you decide how often you need to be checked. This will depend on the results of your test and your risk for colorectal cancer. After the test, you may be bloated or have gas pains. You may need to pass gas. If a biopsy was done or a polyp was removed, you may have streaks of blood in your stool (feces) for a few days. Problems such as heavy rectal bleeding may not occur until several weeks after the test. This isn't common. But it can happen after polyps are removed. This care sheet gives you a general idea about how long it will take for you to recover. But each person recovers at a different pace. Follow the steps below to get better as quickly as possible. How can you care for yourself at home? Activity Rest when you feel tired. You can do your normal activities when it feels okay to do so. Diet Follow your doctor's directions for eating. Unless your doctor has told you not to, drink plenty of fluids. This helps to replace the fluids that were lost during the colon prep. Do not drink alcohol. Medicines Your doctor will tell you if and when you can restart your medicines. He or she will also give you instructions about taking any new medicines. If you take blood thinners, such as warfarin (Coumadin), clopidogrel (Plavix), or aspirin, be sure to talk to your doctor. He or she will tell you if and when to start taking those medicines again. Make sure that you understand exactly what your doctor wants you to do. If polyps were removed or a biopsy was done during the test, your doctor may tell you not to take aspirin or other anti-inflammatory medicines for a few days. These include ibuprofen (Advil, Motrin) and naproxen (Aleve). Other instructions For your safety, do not drive or operate machinery until the medicine wears off and you can think clearly. Your doctor may tell you not to drive or operate machinery until the day after your test. Do not sign legal documents or make major decisions until the medicine wears off and you can think clearly. The anesthesia can make it hard for you to fully understand what you are agreeing to. Additional Information for Sedation Patients For patients who received sedation: You may have received medications before and/or during your procedure which effects your judgement and reaction time. Do not drive, operate machinery, drink alcoholic beverages or make important decisions for 24 hours. Be careful on stairs as you may be unsteady on your feet. You may eat a regular diet as tolerated. Do not smoke if you are alone. IV site: Slight redness or tenderness is normal, you can use a warm compress if you would like. If tenderness and/or redness increase or if foul drainage occurs, please contact your Doctor. Please call [phone] before 8pm Mon-Fri with problems, questions or concerns. If you call after 8pm or on weekends, call the Hospital at [phone] and ask to speak to the Fishing Worker customer operations intern and the gas collection system operator will contact that person for you. When should you call for help? Call [phone] anytime you think you may need emergency care. For example, call if: You passed out (lost consciousness). You pass maroon or bloody stools. You have trouble breathing. Call your doctor now or seek immediate medical care if: You have pain that does not get better after you take pain medicine. You are sick to your stomach or cannot drink fluids. You have new or worse belly pain. You have blood in your stools. You have a fever. You cannot pass stools or gas. Watch closely for changes in your health, and be sure to contact your doctor if you have any problems. Where can you learn more? [facility] [place] [facility]- View your After Visit Summary and more online at [email or web address] If you would like to provide feedback about your hospital experience, please call the Office of Patient and Family Relations at . If you have received this After Visit Summary in error, please immediately return it in person to the department, or notify the [facility] Privacy Office by calling toll free at between the hours of 8AM and 5PM to arrange for our retrieval of the documents at no cost to you. Content Version: 12.2 ?? [id number] [employer]. Care instructions adapted under license by [facility]. If you have questions about a medical condition or this instruction, always ask your healthcare professional. [employer] disclaims any warranty or liability for your use of this information. documented in this encounter Medications at Time of Discharge Medication Sig Dispensed Refills Start Date End Date Asmanex HFA 200 mcg/actuation HFA Aerosol Inhaler [...] by mouth daily. SUMAtriptan (IMITREX) 20 mg/actuation [place], Non-Aerosol 1 spray as needed. 11/03/2017 metFORMIN [...] mouth daily. 30 tablet 3 07/08/2023 10/27/2023 metoprolol succinate XL (Toprol-XL) 50 mg ER 24 hr tablet Take 50 mg by mouth daily. 12/07/2022 10/22/2023 loratadine (Claritin) 10 mg Tablet Take by mouth. 04/05/2016 10/07/2023 Calcium Carbonate-Vitamin D3 500 mg-10 mcg (400 unit) Tablet Take by mouth 2 times daily. 12/24/2012 10/07/2023 cyclobenzaprine (Flexeril) 5 mg Tablet Take 1 tablet by mouth 3 times daily as needed for Muscle spasms. 30 tablet 1 05/07/2022 10/22/2023 clindamycin (CLEOCIN T) 1 % LotionIndications:Fol liculitis Apply to affected areas on abdomen twice daily for ten days. 60 mL 07/23/2021 10/22/2023 triamcinolone (Kenalog) 0.1 % CreamIndications:Papu lar eczema Apply to affected areas on bilateral forearms twice daily for two weeks, then stop for one week and continue as needed for maintenance 30 g 07/23/2021 10/22/2023 metoprolol succinate (TOPROL-XL) 100 mg Tablet Sustained Release 24 hr Take 50 mg by mouth daily. 3 06/27/2018 10/07/2023 ferrous sulfate 325 mg (65 mg iron) Tablet Take 325 mg by mouth daily. 10/07/2023 hydrochlorothiazide (HYDRODIURIL) 12.5 mg Tablet Take 12.5 mg by mouth daily. 10/22/2023 simvastatin (ZOCOR) 10 mg Tablet Take 10 mg by mouth nightly. 11/26/2023 losartan (COZAAR) 50 mg Tablet Take 100 mg by mouth daily. 11/26/2023 fluticasone (FLOVENT) 110 mcg/Actuation inhaler Inhale 1-2 puffs into the lungs daily. 02/21/2011 10/07/2023 documented as of this encounter H&P Notes * Dajuan Rachel MD - 09/18/2023 3:17 PM EST Gastroenterology and Hepatology Pre-Procedure History and Physical Exam Procedure: [place] Indication: UC restaging and surveillance Patient Active Problem List Diagnosis Code Ulcerative colitis K51.90 DIFFICULT AIRWAY T88.4XXA MÉNDEZ (nonalcoholic steatohepatitis) K75.81 Lipid disorder E78.9 Ankylosing spondylitis M45.9 Hypertension I10 GERD (gastroesophageal reflux disease) K21.9 Obesity (BMI 30.0-34.9) E66.9 History of migraine headaches Z86.69 Mild asthma J45.909 Type 2 diabetes mellitus without complication, without long-term current use of insulin E11.9 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 Primary osteoarthritis of right hip M16.11 High risk medication use Z79.899 Inflammatory arthropathy M19.90 Osteopenia since DXA scan in 1995 (T-score -1.7 at the spine) M85.80 Trochanteric bursitis of left hip M70.62 Abnormal blood sugar R73.09 Adalimumab (Humira) long-term use Z79.620 Chronic rhinitis J31.0 Closed fracture of proximal phalanx of little finger S62.618A Disorder of bone and articular cartilage M89.9, M94.9 Hyperlipidemia E78.5 Hypomagnesemia E83.42 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 ASA 2 - Patient with mild systemic disease with no functional limitations Sedation Plan: moderate (conscious sedation) Risks and benefits of the procedure explained to the patient. Consent signed. documented in this encounter Plan of Treatment Upcoming Encounters Date Type Department Care Team (Late st Contact Info) Description 04/19/2024 10:00 AM EDT Hospital Encounter Non-Invasive Cardiology Lab [place] [phone] Arrived 04/29/2024 9:50 AM EDT Appointment MRI at [address] Luis Alfredo Velazquez MD [facility] [place] [address] 04/29/2024 9:50 AM EDT Appointment MRI at [place] [phone] Luis Alfredo Velazquez MD [facility] [place] [address] 06/07/2024 2:30 PM EDT TH Visit (TeleHealth) Gastroenterology at [place] [phone] Dajuan Rachel MD [facility] [place] [address] 07/02/2024 2:00 PM EDT Appointment Non-Invasive Cardiology Lab [place] [phone] Luis Alfredo Velazquez MD [facility] [place] [address] 07/02/2024 4:40 PM EDT Office Visit Cardiology at [address] [phone] Luis Alfredo Velazquez MD [facility] [place] [address] documented as of this encounter Procedures Procedure Name Priority Date/Time Associated Diagnosis Comments SPECIMEN TO PATHOLOGY Routine 09/18/2023 4:27 PM EST SPECIMEN TO PATHOLOGY Routine 09/18/2023 4:27 PM EST SPECIMEN TO PATHOLOGY Routine 09/18/2023 4:27 PM EST SPECIMEN TO PATHOLOGY Routine 09/18/2023 4:27 PM EST SURGICAL PATHOLOGY REPORT Routine 09/18/2023 4:13 PM EST COLONOSCOPY Routine 09/18/2023 3:57 PM EST Colonoscopy, Biopsy ([id number]) 09/18/2023 3:47 PM EST Ulcerative pancolitis with complication documented in this encounter Results * Specimen to Pathology (09/18/2023 4:27 PM EST) AP Specimen 09/18/2023 4:27 PM EST 09/18/2023 4:[address] [facility] - 09/18/2023 4:27 PM EST Specimen requisition ordered. ??Separate Pathology report to follow L Jose Rachel MD PATHOLOGY/CYTOLOGY O IRMA Performing Organization Address City/[facility]/ZIP Co de Phone Number [facility] [place] [address] * Specimen to Pathology (09/18/2023 4:27 PM EST) AP Specimen 09/18/2023 4:27 PM EST 09/18/2023 4:[address] [facility] - 09/18/2023 4:27 PM EST Specimen requisition ordered. ??Separate Pathology report to follow L Jose Rachel MD PATHOLOGY/CYTOLOGY O RDSETH [facility] [place] [address] * Specimen to Pathology (09/18/2023 4:27 PM EST) AP Specimen 09/18/2023 4:27 PM EST 09/18/2023 4:[address] [facility] - 09/18/2023 4:27 PM EST Specimen requisition ordered. ??Separate Pathology report to follow L Jose Rachel MD PATHOLOGY/CYTOLOGY O IRMA Performing Organization Address [facility] [place] [address] * Specimen to Pathology (09/18/2023 4:27 PM EST) AP Specimen 09/18/2023 4:27 PM EST 09/18/2023 4:[address] [facility] - 09/18/2023 4:27 PM EST Specimen requisition ordered. ??Separate Pathology report to follow L Jose Rachel MD PATHOLOGY/CYTOLOGY O IRMA Performing Organization Address [facility] [place] [address] * Surgical Pathology Report (09/18/2023 4:13 PM EST) FINAL DIAGNOSIS (AP) [id number] ? Location: 4T; EA11; A The signing pathologist has (i) examined the relevant preparation(s) for the specimen(s) and (ii) rendered or confirmed the diagnosis(es). . ?Surgical Pathology DIAGNOSIS A - Nondirected right colon bxs, biopsy (Multiple): - ??Colonic mucosa with mild architectural disarray, negative for dysplasia. B - Nondirected transverse colon bxs, biopsy (Multiple): - ??Colonic mucosa with mild architectural disarray, negative for dysplasia. C - Nondirected bxs ??descending ??colon, biopsy (Multiple): - ??Colonic mucosa, negative for diagnostic abnormality. D - Nondirected rectosigmoid colon bxs, biopsy (Multiple): - Patchy ??mildly active chronic colitis, negative for dysplasia. - ??Hyperplastic polyp. CR-PX Electronically signed by: ?Iker Jansen MD Verified: ??09/26/2023 15:23 ??Pathologist Performed at: ??-[facility] [place] Dept. of [place]ology, [place] [address] Matrix Supervisor: Dg Brown MD, FCAP, ??CLIA Certificate: [id number] SPECIMEN(S) SUBMITTED A - nondirected right colon bxs, biopsy (Multiple) B - nondirected transverse colon bxs, biopsy (Multiple) C - nondirected bxs ??descending ??colon, biopsy (Multiple) D - nondirected rectosigmoid colon bxs, biopsy (Multiple) CLINICAL INFORMATION 63-year-old with history of Crohn's SPECIMEN PROCESSING A - Labeled/Fixative: None directed right colon BX is, formalin. Quantity/Size: Multiple, ranging from 0.3 to 0.5 cm. Tissue Description: Soft, brown tissues. Sections/Processi ng: Submitted in toto ??in 2 cassettes labeled A1-A2. B - Labeled/Fixative: Nondirected transverse colon BX, formalin. Quantity/Size: Multiple, ranging from 0.3 to 0.5 cm. Tissue Description: Soft, brown tissues. Sections/Processi ng: Submitted in toto ??in 2 cassettes labeled B1-B2. C - Labeled/Fixative: 9 directed BX is descending colon, formalin. Quantity/Size: Multiple, ranging from 0.3 to 0.5 cm. Tissue Description: Soft, brown tissues. Sections/Processi ng: Submitted in toto ??in 2 cassettes labeled C1-C2. D - Labeled/Fixative: Nondirected rectosigmoid colon, formalin. Quantity/Size: Multiple, ranging from 0.3 to 0.5 cm. . SPECIMEN PROCESSING Tissue Description: Soft, brown tissues. Sections/Processi ng: Submitted in toto ??in 2 cassettes labeled D1-D2. ??SM 09/26/2023 3:23 PM [facility] 09/18/2023 4:13 PM EST L Jose Rachel MD PATHOLOGY/CYTOLOGY Clotilde SOLIS [facility] [place] [address] * COLONOSCOPY (09/18/2023 3:57 PM EST) COLONOSCOPY [facility] ___ Procedure Date: 09/18/2023 3:57 PM ? Patient Name: Kim Funes ? [facility]: [id number] ? Date of : 1960 ? Age: 63 ? Order #: [id number] ? Instrument Name: [id number] ? ___ Procedure: ? Colonoscopy Indications: ? [...] preparation was evaluated ? using the BBPS (Franklin Bowel ? Preparation Scale) with scores of: [...] ? - Please have labs checked at [facility]. ? - Await pathology results. ? Attending Participation: ? I personally performed the entire procedure. ? _ L. Jose Rachel MD 09/18/2023 5:05:33 PM Number of Addenda: 0 Note Initiated On: 09/18/2023 3:57 PM PROVATION 09/18/2023 3:57 PM EST Marcio Devlin DO GENERAL SURGICAL ORD ERABLES PROVATION documented in this encounter Visit Diagnoses Not on filedocumented in this encounter Administered Medications Inactive Administered Medications - up to 3 most recent administrations Medication Order MAR Action Action Date Dose Rate Site lactated ringers infusion 100 mL/hr, Intravenous, CONTINUOUS, Starting on Lorna 09/18/23 at 1500, Until Lorna 09/18/23 at 1656, Endoscopy (Day of Procedure) New Bag 09/18/2023 2:46 PM EST 100 mL/hr 100 mL/hr documented in this encounter Active and Recently Administered Medications Times are shown in EST. Continuous Medication Order 09/16/2023 09/17/2023 09/18/2023 lactated ringers infusion (CANCELED) 100 mL/hr, Intravenous, CONTINUOUS, Starting on Lorna 09/18/23 at 1500, Until Lorna 09/18/23 at 1656, Endoscopy (Day of Procedure) 1446 (New Bag - Prov ider: Chuyita Lawson RN) PRN Medication Order 09/16/2023 09/17/2023 09/18/2023 fentaNYL (pf) (50 mcg/mL) multi-dose injection (CANCELED) PRN, Starting on Lorna 09/18/23 at 1550, Until Lorna 09/18/23 at 1905, Intra-Operative (Intra-Procedure), Routine 1550 (Given - Provid er: Sugar Ruffin RN)1553 (Given - Provider: Sugar Ruffin RN)1559 (Given - Provider: Sugar Ruffin RN)1605 (Given - Provider: Sugar Ruffin RN) midazolam (pf) (Versed) (1 mg/mL) multi-dose injection (CANCELED) PRN, Starting on Lorna 09/18/23 at 1550, Until Lorna 24 at 1905, Intra-Operative (Intra-Procedure), Routine 1550 (Given - Provid er: Sugar Ruffin RN)1553 (Given - Provider: Sugar Ruffin, RN)1559 (Given - Provider: Sugar Ruffin RN)1605 (Given - Provider: Sugar Ruffin RN) documented in this encounter Care Teams Alternative Financing Specialist Relationship Specialty Start Date End Date Marcio Devlin DO [address] [facility] [place] [address] PCP - General Family Medicine 11/11/17 documented as of this encounter
--- OUTSIDE RECORDS SUMMARY | 2024-04-08 02:26 | XMS_ITS | Encounter Summary ---
Author Organization [facility] Address [facility] [place] [address] Care Team Providers Care Repack Room Worker Name Role Phone Marcio Devlin DO Primary Care Provider [phone] Reason for Visit * Reason Comments Medication Refill Encounter Details Date Type Department Care Team (Late st Contact Info) Description 10/27/2023 Refill Rheumatology at [facility] [place] [address] Gabe Fong MD [facility] [place] [address] Social History Tobacco Use Types Packs/Day Years Used Date Smoking Tobacco: Never Smokeless Tobacco: Never Alcohol Use Standard Drinks/Week Comments Yes 0 (1 standard drink = 0.6 oz pure alcohol) once every couple of months or less [facility] Utilities Answer Date Recorded In the past 12 months has [employer], gas, oil, or water company threatened [...] AM EDT Hospital Encounter Non[place] [address] Arrived 04/29/2024 9:50 AM [place] [phone] Luis Alfredo Velazquez MD [facility] [place] [address] 04/29/2024 9:50 AM EDT Appointment MRI at [place] [phone] Luis Alfredo Velazquez MD [facility] [place] [address] 06/07/2024 2:30 PM EDT TH Visit (TeleHealth) Gastroenterology at [address] Dajuan Rachel MD [facility] [place] [address] 07/02/2024 2:00 PM EDT Appointment Non-[place]vasive [place] [address] Luis Alfredo Velazquez MD [facility] [place] [address] 07/02/2024 4:40 PM EDT Office Visit Cardiology at [place] [phone] Luis Alfredo Velazquez MD [facility] [place] [address] documented as of this encounter Visit Diagnoses Not on filedocumented in this encounter Care Teams Repack Room Worker Relationship Specialty Start Date End Date Marcio Devlin DO [address] [place] [address] PCP - General Family Medicine 11/11/17 documented as of this encounter
--- OUTSIDE RECORDS SUMMARY | 2024-04-08 02:26 | XMS_ITS | Encounter Summary ---
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 Name Role Phone Marcio Devlin DO Primary Care Provider [phone] Encounter Details Date Type Department Care Team (Late st Contact Info) Description 10/20/2023 External [place] [phone] Social History Tobacco Use Types Packs/Day Years Used Date Smoking Tobacco: Never Smokeless Tobacco: Never Alcohol Use Standard Drinks/Week Comments Yes 0 (1 standard drink = 0.6 oz pure alcohol) once every couple of months or less [facility] Utilities Answer Date Recorded In the past 12 months has [facility] [employer], gas, oil, or water [employer] threatened to shut off services in your [...] place to sleep or slept in a half-way (including now)? No 10/21/2023 IPV Inpatient Questions [...] AM EDT Hospital Encounter Non-[place] [address] Arrived 04/29/2024 9:50 AM EDT [place] [phone] Luis Alfredo Velazquez MD [facility] [place] [address] 04/29/2024 9:50 AM EDT [place] [phone] Luis Alfredo Velazquez MD [facility] [place] [address] 06/07/2024 2:30 PM EDT TH Visit (TeleHealth) [place] [phone] Dajuan Rachel MD [facility] DR GASTROENTEROLOGY [place] [address] 07/02/2024 2:00 PM EDT Appointment Non-[place] [phone] Luis Alfredo Velazquez MD [facility] [place] [address] 07/02/2024 4:40 PM EDT Office Visit Cardiology at [address] [phone] Luis Alfredo Velazquez MD [facility] [place] [address] documented as of this encounter Procedures Procedure Name Priority Date/Time Associated Diagnosis Comments ECG SCAN Routine 10/20/2023 6:30 AM EST ECG SCAN Routine 10/20/2023 5:52 AM EST documented in this encounter Results * Scan Doc: ECG (10/20/2023 6:30 AM EST) Historical Provider MD MEDIA MGR SCAN EX T ORDR/RSLT * Scan Doc: ECG (10/20/2023 5:52 AM EST) Historical Provider MD MEDIA MGR SCAN EX T ORDR/RSLT documented in this encounter Visit Diagnoses Not on filedocumented in this encounter Care Teams Welding Process Engineer Relationship Specialty Start Date End Date Marcio Devlin DO [address] [place] [address] PCP - General Family Medicine 11/11/17 documented as of this encounter
--- OUTSIDE RECORDS SUMMARY | 2024-04-08 02:26 | XMS_ITS | Encounter Summary ---
Author Organization [facility] Address [facility] [place] [address] Care Team Providers Care Cpa Tax Name Role Phone Marcio Devlin DO Primary Care Provider [phone] Reason for Visit * Auth/Cert (Routine) Specialty Diagnoses / Procedures Referred By Contac t Referred To Contact Diagnoses Complete heart block Bradycardia Procedures EMERGENCY IPI Elle Tristan MD [facility] [place] [address] [facility] Referral ID Status Reason Start Date Expiration Date Visits Re quested Visits Authorized [id number] 1 1 Encounter Details Date Type Department Care Team (Late st Contact Info) Description 10/20/2023 9:01 AM EST - 10/22/2023 11:16 AM EST Hospital [place] [address] Elle Tristan MD [facility] [place] [address] Glenn Miranda MD [facility] [place] [address] Humberto Lynn MD [facility] [place] [address] CHB (complete heart block); Folliculitis Discharge Disposition: Home Social History Tobacco Use Types Packs/Day Years Used Date Smoking Tobacco: Never Smokeless Tobacco: Never Alcohol Use Standard Drinks/Week Comments Yes 0 (1 standard drink = 0.6 oz pure alcohol) once every couple of months or less [facility] Utilities Answer Date Recorded In the past 12 months has th e [employer], gas, oil, or water [employer] threatened to shut off services in your [...] in a snf (including now)? No 10/21/2023 DH IPV Inpatient [...] Sign Reading Time Taken Comments Blood Pressure 120/59 10/22/2023 8:00 AM EST Pulse 76 10/22/2023 8:00 AM EST Temperature 36.3 ??C (97.3 ??F) 10/22/2023 8:00 AM ES T Respiratory Rate 26 10/22/2023 8:00 AM EST Oxygen Saturation 99% 10/22/2023 8:00 AM EST Inhaled Oxygen Concentration - - Weight 77.1 kg (170 lb) 10/20/2023 10:00 AM EST Height 165.1 cm (5' 5) 10/20/2023 10:00 AM EST Body Mass Index 28.29 10/20/2023 10:00 AM EST documented in this encounter Discharge Summaries * Humberto Lynn MD - 10/22/2023 10:19 AM EST Discharge Summary Patient Name: Kim Perez Patient Age: 63 y.o. Language: Persian Race: White Ethnicity: Not nor Admit date: 10/20/2023 Discharge date and time: 10/22/2023 Attending Physician: Humberto Lynn MD Discharge Physician: Humberto Lynn MD ID: Kim Perez is a 63 y.o. female w/ PMH of ulcerative colitis, ankylosing spondylitis, HTN and HLD who presented to [facility] for symptomatic bradycardia in the setting of [...] spondylitis. PCP Contact Information: Marcio Devlin DO [address] [facility] [place] [address] Pending Studies and Lab Data: none No [...] disease Colonoscopy 09/19/08 (Dr. Shady Luz at [facility]) for surveillance for dysplasia. Areas of [...] 2020 - severe involvement of L colon, sqhu-rr-nytqaysv involvement of transverse and R colon. Worse compared to last exam. SSA at hepatic flexure Adalimumab level (garcía) was 12.7 Switched to Stelara ( 03/21/21, first infusion dose) d/t Lost of response to Humira. Stopped Uceris and sulfasalazine in January 2021. [place] 09/2022 - tubular featureless L colon with [...] , patient went to her PCP at [facility] internal medicine where she was evaluated for [...] and request was made to transfer to [facility] for ongoing care and possible permanent pacemaker evaluation. Upon interview in the [facility], patient resting comfortably in bed without concern. She states that shehas ongoing fatigue and weakness but denies lightheadedness or dizziness. Hospital Course: Kim Perez was admitted to the Hospital Medicine Service on 10/20/2023. The following issues were addressed and she was discharged on 10/22/2023. #Complete Heart Block w/ Narrow Junctional Escape After admission to the CV, patient's home beta-rosita was discontinued. After evaluation [...] who have questions please contact the health health care technician that requested your imaging first. Chest One View (Exam End: 10/21/2023 8:35 PM) Impression No acute pulmonary findings Thank you for letting us participate in the care of this patient. If you are a health care provider and have any questions regarding this report, please contact the number below. For patients who have questions please contact the health health care technician that requested your imaging first. Discharge Conditions/Prognosis: Upon discharge the patientis hemodynamically [...] 10 mg Refills: 0 SUMAtriptan 20 mg/actuation [place], Non-Aerosol Commonly known as: IMITREX 1 spray [...] 10 mg Refills: 0 SUMAtriptan 20 mg/actuation [place], Non-Aerosol Commonly known as: IMITREX 1 spray [...] Center 11/04/2023 11:00 AM Rosemarie Morrow APRN [facility] GASTRO [facility] 01/06/2024 1:00 PM Gabe Fong MD [facility] RHEUM [facility] Your Inpatient Medical Team at [facility] Name(s) of your inpatient provider(s): Humberto Lynn MD Your Primary Care Provider: Marcio Devlin DO [phone] For questions regarding this document or issues relating to this hospitalization on the Medical Service, please contact your inpatient physician through the [facility] Maintenance Mechanic Supervisor . Issues afterhours and on weekends will be handled by the Hospitalist staff on-call. FINAL ICD/PACEMAKER RECOMMENDATIONS: 1. Standard post implant discharge instructions (see below): 2. Medications as listed above. 3. You may use ice packs over the incision. Make sure to use a protective clothing issuer (such as a towel) in between the [...] F. The office scheduling phone number is [phone]. ARM MOVEMENT RESTRICTIONS POST-IMPLANT For 4-6 Weeks: [...] product, please call the device clinic at [phone]. General Instructions None Future Appointments and Orders Future Appointments and Orders Future Appointments Provider Department Dept Phone 11/04/2023 11:00 AM Rosemarie Morrow APRN Gastroenterology at [facility] Arrive at: [place] [phone] To view instructions for your video visit, click here, or visit this website: [email or web address] If you have not previously downloaded the [facility] patient portal software, Acrinta, or the Link_A_ Media maria c, please do so by clicking one of these links below or searching in your device's maria c store. For all desktops/laptops; for Android devices; for Apple/iOS devices Please test your camera and microphone prior to your video visit. FAQs: Join Video Visit button not connecting? - This may be due to pop-up blockers. - Click this link to see: How to Disable Pop-Up Block for [facility] Video Visits Zoom asking for a meeting password? - Exit out of the Zoom program and try the link again 11/04/2023 1:00 PM Lorri Mckinney PA Cardiology at [facility] Arrive at: Supervisor Molding Area 4A [phone] 01/06/2024 1:00 PM Gabe Fong MD Rheumatology at [facility] Arrive at: Supervisor Molding Area 5C [phone] Inpatient Provider Contact Information: Clarence Pearl MD [...] 10 mg Refills: 0 SUMAtriptan 20 mg/actuation [place], Non-Aerosol Commonly known as: IMITREX 1 spray [...] Center 11/04/2023 11:00 AM Rosemarie Morrow APRN [facility] GASTRO [facility] 01/06/2024 1:00 PM Gabe Fong MD [facility] RHEUM [facility] Your Inpatient Medical Team at [facility] Name(s) of your inpatient provider(s): Humberto Lynn MD Your Primary Care Provider: Marcio Devlin DO [phone] For questions regarding this document or issues relating to this hospitalization on the Medical Service, please contact your inpatient physician through the [facility] Maintenance Mechanic Supervisor . Issues afterhours and on weekends will be handled by the Hospitalist staff on-call. FINAL ICD/PACEMAKER RECOMMENDATIONS: 1. Standard post implant discharge instructions (see below): 2. Medications as listed above. 3. You may use ice packs over the incision. Make sure to use a protective clothing issuer (such as a towel) in between the [...] F. The office scheduling phone number is [phone]. ARM MOVEMENT RESTRICTIONS POST-IMPLANT For 4-6 Weeks: [...] product, please call the device clinic at [phone]. documented in this encounter Medications at Time [...] by mouth daily. SUMAtriptan (IMITREX) 20 mg/actuation [place], Non-Aerosol 1 spray as needed. 11/03/2017 metFORMIN [...] the unit. CARLOS ARIAS MD 10/21/2023 * Glenn Miranda MD - 10/21/2023 7:01 AM EST Images from the original note were not included. Cardiology ICU Progress Note Patient info: Name: Kim Perez : 1960 PCP: Marcio Devlin DO PCP phone number: [phone] Date of Admission: 10/20/2023 ( Hospital Day [...] cord;no drainage;no streakformation 10/20/231999 Labs: Recent Labs 10/21/23 0604 10/20/23 1340 WBC 6.8 6.6 HGB 12.6 12.6 HCT 38.1 37.4 PLATELET 211 228 MCV 93.8 91.7 Recent Labs 10/21/23 0755 10/21/23 0604 10/20/23 1340 NA 143 -- 145 CL 111* [...] in the last 7068 hours. Invalid input(s): [id number] Recent Labs 10/21/23 0754 10/20/23 2106 10/20/23 [...] Resuscitation - Inpatient Dispo: Pending clinical course Jena Roca DO Internal Medicine, PGY-1 Cardiology, [facility] [...] service for ongoing care. Glenn Miranda MD, [facility] Staff Telephone Diaphragm Assembler * Elle Tristan MD - 10/20/2023 1:46 [...] Responsible Attending: Glenn Miranda MD PCP: Marcio Devlin, ID: Kim Perez is a 63 y.o. female w/ PMH of ulcerative colitis, ankylosing spondylitis, HTN, prediabetes and HLD here for evaluation of lightheadedness and shortness of breath, found to be in complete heart block s/p pacemaker placement 10/21/23. History of Present Illness: Per CVCC H&P This patient presented to the emergency [...] , patient went to her PCP at [facility] internal medicine where she was evaluated for [...] and request was made to transfer to [facility] for ongoing care and possible permanent pacemaker evaluation. Upon interview in the [facility], patient resting comfortably in bed without concern. She states that shehas ongoing fatigue and weakness but denies lightheadedness or dizziness. Hospital Course to date After admission to the [facility], patient's home beta-rosita was discontinued. After evaluation [...] disease Colonoscopy 09/19/08 (Dr. Shady Luz at [facility]) for surveillance for dysplasia. Areas of [...] 2020 - severe involvement of L colon, vqfe-qx-elrmgjla involvement of transverse and R colon. Worse compared to last exam. SSA at hepatic flexure Adalimumab level (garcía) was 12.7 Switched to Stelara ( 03/21/21, first infusion dose) d/t Lost of response to Humira. Stopped Uceris and sulfasalazine in January 2021. [place] 09/2022 - tubular featureless L colon with [...] in the last 7068 hours. Invalid input(s): [id number] Heme: No results for input(s): LDH, HAPTOGLOBIN, [...] PCP: Marcio Devlin DO PCP phone number: [phone] Date of Admission: 10/20/2023 ( Hospital Day [...] , patient went to her PCP at [facility] internal medicine where she was evaluated for [...] and request was made to transfer to [facility] for ongoing care and possible permanent pacemaker evaluation. Upon interview in the [facility], patient resting comfortably in bed without concern. [...] disease Colonoscopy 09/19/08 (Dr. Shady Luz at [facility]) for surveillance for dysplasia. Areas of [...] WITH BX performed by YAQUELIN ESTRADA at [facility] ENDOSCOPY PRO COLONOSCOPY, BIOPSY N/A 03/04/2017 COLONOSCOPY FLEXIBLE, WITH BX (WRVU 3.66) performed by Raúl Austin MD at [facility] ENDOSCOPY PRO COLONOSCOPY, BIOPSY N/A 11/09/2019 COLONOSCOPY FLEXIBLE, WITH BX (WRVU 3.66) performed by Froilan Sahni MD at [facility] ENDOSCOPY PRO COLONOSCOPY, BIOPSY N/A 12/19/2020 COLONOSCOPY FLEXIBLE, WITH BX (WRVU 3.66) performed by Dajuan Rachel MD at [facility] ENDOSCOPY PRO COLONOSCOPY, BIOPSY N/A 09/24/2022 COLONOSCOPY FLEXIBLE, WITH BX (WRVU 3.66) performed by Dajuan Rachel MD at [facility] ENDOSCOPY PRO COLONOSCOPY, BIOPSY N/A 09/18/2023 COLONOSCOPY FLEXIBLE, WITH BX (WRVU 3.56) performed by Dajuan Rachel MD at [facility] ENDOSCOPY PRO COLONOSCOPY, DIAGNOSTIC N/A 11/09/2019 COLONOSCOPY, DIAGNOSTIC performed by Froilan Sahni MD at [facility] ENDOSCOPY PRO COLONOSCOPY, REMV LESN, SNARE 01/02/2011 COLONOSCOPY, POLYPECTOMY, REMOVAL LESION BY SNARE performed by YAQUELIN ESTRADA at [facility] ENDOSCOPY PRO COLONOSCOPY, REMV LESN, SNARE N/A 03/04/2017 COLONOSCOPY, POLYPECTOMY, REMOVAL LESION BY SNARE (WRVU 4.67) performed by Raúl Austin MD at [facility] ENDOSCOPY PRO COLONOSCOPY, REMV LESN, SNARE N/A 09/24/2022 COLONOSCOPY, POLYPECTOMY, REMOVAL LESION BY SNARE (WRVU 4.67) performed by Dajuan Rachel MD at [facility] ENDOSCOPY PRO COMBINED ANT/POST COLPORRHAPHY W CYSTO N/A 03/10/2018 COLPORRHAPHY ANTERIOR-POSTERIOR; INC CYSTOURETHROSCOPY (WRVU 14.44) performed by Liang Fong MD at [facility] MAIN OR PRO REVAGINAL PROLAPSE, UTEROSACRAL N/A 03/10/2018 COLPOPEXY, VAGINAL, INTRAPERITONEAL APPROACH (WRVU 11.66) performed by Liang Fong [facility] PRO SLING OPER STRES INCONTINENCE N/A 03/10/2018 URETHRAL SUSPENSION, SLING\FASCIA OR SYNTHETIC (WRVU 12.13) performed by Liang Fong MD at [facility] MAIN OR PRO VAG HYST, RMV TUBE/OVARY N/A 03/10/2018 HYSTERECTOMY, VAGINAL, REMOVAL TUBE(S) & OR OVARY(S) (WRVU 15.94) performed by Liang Fong MD at [facility] MAIN OR SALPINGECTOMY XR FLUORO INJECTION DRAINAGE JOINT LG RIGHT Right 03/09/2019 XR Fluoro Guided Joint Injection Large Right 03/09/2019 [facility] RAD XRAY Family History Family History Problem [...] Blood Gas) No results for input(s): PHART, DDU7QAW, PO2ART, OPU3LAR, LACTATEVEN, DTX7MLO, PFRATIOART2 in the last 168 hours. VBG (Venous Blood Gas) No results for input(s): PHVEN, GRR3VQW, PO2VEN, ZIU2QOG, LACTATEVEN in the last 168 hours. Mixed Venous Sat No results for input(s): O2TYPZ2 in the last 168 hours. Intake/Output Summary [...] in the last 68 hours. Invalid input(s): [id number] No results for input(s): POCGLU in the last 168 hours. Heme No results for input(s): LDH, HAPTOGLOBIN, URICACID in the last 168 hours. ABG (Arterial Blood Gas) No results for input(s): PHART, HBZ5BQB, PO2ART, XPV5EMB, LACTATEVEN, QQM4BHB, PFRATIOART2 in the last 168 hours. VBG (Venous Blood Gas) No results for input(s): PHVEN, WZP3OAL, PO2VEN, JBF6CZE, LACTATEVEN in the last 168 hours. Mixed Venous Sat No results for input(s): Z0CKZL4 in the last 168 hours. Microbiology: Microbiology [...] Jean Roca, DO Internal Medicine, PGY-1 Cardiology, [facility] 10/20/23 2:14 PM * Jason Castro MD - 10/20/2023 10:39 AM EST Inpatient Cardiac Electrophysiology- Initial Consultation Date of Consultation: 10/20/2023 Admit Date: 10/20/2023 Patient Location: [facility] Attending Telephone Diaphragm Assembler: Riley Reason for Consult: Complete Heart Block [...] by mouth daily. SUMAtriptan (IMITREX) 20 mg/actuation [place], Non-Aerosol 1 spray as needed. metFORMIN (GLUCOPHAGE) [...] Family history: None of bradycardia Social History: 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 Gera Martell MD Cardiac Electrophysiology Fellow [facility] Pager [phone] 10/20/2023 I met with the patient today [...] above plan. Dr. 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 Current Living Arrangements: home/apartment/condo. Accessibility Concerns:house 1 floor with 3 LISS. Current Functional Ability: Independent, Assistive Person DME used at home: none DME Needed at Discharge: none Patient is insured through: Primary Insurance: [employer] Payor: [facility] / Plan: [facility] PPO / Product Type: *No Product type* / Secondary Insurance: N/A Prescription Coverage: Yes This plan was formulated with input from patient and team. All are in agreement with plan. GHADA Shah, RN Inpatient Cleaning Specialist- Cardiology Office of Care Management Pager #: [phone] * Consult Note - Chepe Russo MD - 10/22/2023 8:00 AM EST Images from the original note were not included. [facility] [place] [address] CARDIAC ELECTROPHYSIOLOGY CONSULT NOTE Patient: Kim Perez [...] disease Colonoscopy 09/19/08 (Dr. Shady Luz at [facility]) for surveillance for dysplasia. Areas of [...] iritis Escalated to weekly Humira 11/2019. ADA ([place]) from 6 q 2wk to 12.7 qwk, as well as BID SSZ Colonoscopy Oct 2019: normal rectum, mod-severe inflammation and narrowing from 6-25 cm from the anus, normal remainder of colon. Path: mild active chronic colitis in ac/tc/dc/sc, severe active colitis with ulceration in proximal rectum Colonoscopy December 2020 - severe involvement of L colon, cluh-oj-ebtbiatr involvement of transverse and R colon. Worse compared to last exam. SSA at hepatic flexure Adalimumab level ([place]) was 12.7 Switched to Stelara ( 03/21/21, first infusion dose) d/t Lost of response to Humira. Stopped Uceris and sulfasalazine in January 2021. [place] 09/2022 - tubular featureless L colon with [...] She underwent placement of a left sided [employer] dual chamber pacemaker on 10/21/23. Procedure [...] expected position. No pneumothorax. Diagnostics Presenting EGMs: -FLEXO PRESS OPERATOR Underlying Rhythm: CHB with narrow junctional escape in the 30's Atrial Episodes: None Ventricular Episodes: None Atrial Pacing: <1% Ventricular Pacin% Lead and Generator Data Exercise Planner Model # Serial # Generator Optimitive [id number] Atrial Lead [employer] [id number] Ventricular Lead [employer] [id number] Pace / Sense Data Sensed wave (mV) [...] She underwent placement of a left sided [employer] dual chamber pacemaker on 10/21/23. Device is functioning well and CXR unremarkable. Recommendations: - Pocket incision is well healed without signs or symptoms of infection - Device is functioning appropriately - Patient will have 10 day follow up here and will then follow up at [facility] Case was discussed with Dr. Berumen who agrees with recommendations as documented above. EP Consult service will continue to follow patient. x Recommendations are above, please page if further consultation required. Chepe Russo Church History Teacher [phone] Associated attestation - Dilip Berumen MD - 10/22/2023 11:33 AM EST Post-op day # 1 s/p dual-chamber pacemaker for symptomatic complete heart block . Patient feels much, much better. Post implant interrogation - excellent RA and RV parameters. CXR- good and stable lead positions, no sign of PTX. OK to discharge patient from EP standpoint. Will arrange ~10 [facility]wound check at [facility] clinic and ~ 91 day check at [facility]. Dilip Berumen MD, PhD, [facility] Cardiac Electrophysiology 10/22/2023 11:32 AM * Initial [...] disease Colonoscopy 09/19/08 (Dr. Shady Luz at [facility]) for surveillance for dysplasia. Areas of [...] surrogate would be surrogate decision maker per [place] surrogate decision making law. (Only good for 180 days) Any patient receiving care in [place] must abide by [place] law. The hierarchy for surrogate decision making [...] (i) The agent with financial power of corporate attorney or a conservator appointed in accordance with RSA 464-A. (j) The guardian of the patient???s estate. 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) Prior [...] has the electric, gas, oil, or water company threatened [...] Current DME: none Home Address confirmed as: [address] [place] [phone] Social & Family Supports: All names listed below confirmed with patient as current and correct Extended Emergency Contact Information Primary Emergency Contact: Lucien Perez Address: [address] [place] [phone] [facility] Relation: Spouse Secondary Emergency Contact: Olivia [...] points: Addiction likely Health/Prescription Coverage: Primary Insurance: [employer] Payor: [facility] / Plan: [facility] PPO / Product Type: *No Product type* / Secondary Insurance: N/A ; Prescription Coverage: Yes Preferred Pharmacy: [id number] - [place], [place] - [address] [facility] [address] [facility] [address] [facility] - [place], [place] - [address] [facility] [address] [facility] [address] Status: Patient is a : No Primary Care Provider confirmed: Marcio Devlin DO [phone] Patient/Caregiver Goals of Treatment: return home with [...] assist with transition of care planning. Liyah Spencer, RN documented in this encounter Plan of Treatment Upcoming Encounters Date Type Department Care Team (Late st Contact Info) Description 04/19/2024 10:00 AM EDT Hospital Encounter Non-In[place] [address] Arrived 04/29/2024 9:50 AM [place] [phone] Luis Alfredo Velazquez MD [facility] [place] [address] 04/29/2024 9:50 AM [place] [phone] Luis Alfredo Velazquez MD [facility] [place] [address] 06/07/2024 2:30 PM EDT TH Visit (TeleHealth) [place] [address] Dajuan Rachel MD [facility] [place]STRO[place] [address] 07/02/2024 2:00 PM EDT Appointment Non-Invasive [place] [address] Luis Alfredo Velazquez MD [facility] [place] [address] 07/02/2024 4:40 PM EDT Office Visit Cardiology at [address] [address] Luis Alfredo Velazquez MD [facility] [place] [address] documented as of this encounter Procedures Procedure [...] EST HC CBC,PLT & AUTO DIFF Routine 6:04 AM EST HC PHOSPHORUS, SERUM Routine [...] who have questions please contact the health health care technician that requested your imaging first. ? Narrative 10/22/2023 8:51 AM EST EXAMINATION: XR [...] patients who have questions please contactthe health health care technician that requested your imaging first. Dilip Berumen MD IMG DX ORDERABLES * (ABNORMAL) Differential, Automated (10/22/2023 2:41 AM EST) Neutrophils % 71.9 % [facility] Neutr Abs (ANC) 6.59(H) 1.70 - 6.10 x10(3)/ L [facility] Lymphocytes % 19.1 % [facility] Lymphocytes Abs 1.8 0.9 - 3.2 x10(3)/[facility] Monocytes % 7.9 % [facility] Monocyte Abs 0.7 0.3 - 0.9 x10(3)/[facility] Eosinophils % 0.7 % [facility] Eosinophils Abs 0.1 0.0 - 0.4 x10(3)/[facility] Basophils % 0.2 % [facility] Basophils Abs 0.0 0.0 - 0.1 x10(3)/ L [facility] Immature Gran % 0.20 % [facility] Comment: Immature granulocytes(IG's)percentage and absolute count will include metamyelocytes, myelocytes, and promyelocytes. Blood smears from CBCs yielding IG's will be scanned manually for concordance. If this scan disagrees with the automated IG or if promyelocytes are noted, a manual differential will be performed. Melanie Gran Abs 0.02 0.00 - 0.04 x10(3)/ L [facility] Blood 10/22/2023 2:41 AM EST 10/22/2023 2:41 AM EST Narrative Resulting Agency Comment Spec In Lab Clifton Segundo MD HEMATOLOGY ORDERABLE S [facility] [place] [address] * (ABNORMAL) Hemogram (10/22/2023 2:41 AM EST) WBC 9.2 4.0 - 9.5 x10(3)/[facility] RBC 4.11 4.00 - 5.21 x10(6)/[facility] Hemoglobin 12.9 11.7 - 15.5 g/dL [facility] Hematocrit 38.4 35.7 - 45.8 % [facility] MCV 93.4 82.6 - 94.4 [facility] MCH 31.4 27.1 - 32.0 pg [facility] MCHC 33.6 31.7 - 35.0 g/dL [facility] Platelets 190 145 - 357 x10(3)/[facility] RDWSD 48.7(H) 37.0 - 46.0 [facility] RDWCV 14.1 11.5 - 14.1 % [facility] MPV 10.5 7.6 - 12.9 [facility] nRBC % Auto 0.0 % [facility] nRBC Abs Auto 0.000 0.000 - 0.000 x10(3)/[facility] Blood 10/22/2023 2:41 AM EST 10/22/2023 2:41 AM EST Narrative Resulting Agency Comment Spec In Lab Clifton Segundo MD HEMATOLOGY ORDERABLE S [facility] [place] [address] * (ABNORMAL) Basic Metabolic Panel (non-fasting) (10/22/2023 2:41 AM EST) Glucose Lvl 115 65 - 199 mg/dL [facility] Comment:Diabetes: >=200 mg/d L plus symptoms BUN 21(H) 8 - 18 mg/dL [facility] Creatinine 1.12 0.70 - 1.20 mg/dL [facility] Sodium 142 135 - 145 mmol/L [facility] Potassium 3.8 3.5 - 5.0 mmol/L [facility] Comment: Please note: ??Patients with WBC >100,000 may have falsely elevated Potassium levels. ??For accurate Potassium quantification in these patients send serum separator tube (gold top) for subsequent determinations. ??Contact the Clinical Chemistry Laboratory if there are any questions. Chloride 107 98 - 107 mmol/L [facility] CO2 23 22 - 31 mmol/L [facility] Anion Gap 12 5 - 15 mmol/L [facility] Calcium 9.1 8.5 - 10.5 mg/dL [facility] Estimated GFR 56(L) >=60 mL/min/1. 73 m?? [facility] Comment: This patient's estimated GFR [...] In Lab Glenn Miranda MD CHEMISTRY ORDERABLES [facility] [place] [address] * Phosphorus (10/22/2023 2:41 AM EST) Phosphorus 4.3 2.5 - 4.5 mg/dL [facility] Blood 10/22/2023 2:41 AM EST 10/22/2023 2:41 AM EST Narrative Resulting Agency Comment Spec In Lab Glenn Miranda MD CHEMISTRY ORDERABLES Performing Organization Address [facility] Co de Phone Number [facility] [place] [address] * (ABNORMAL) Magnesium (10/22/2023 2:41 AM EST) Pathologist [facility] Magnesium 0.66(L) 0.69 - 1.07 mmol/L [facility] Blood 10/22/2023 2:41 AM EST 10/22/2023 2:41 AM EST Narrative Resulting Agency Comment Spec In Lab Glenn Miranda MD CHEMISTRY ORDERABLES Performing Organization Address [facility] Co de Phone Number [facility] [place] [address] * POCT Glucose (10/21/2023 9:43 PM EST) [facility] POC Glucose 131 65 - 199 mg/dL [facility] Comment: Supplemental ranges: <140 mg/dL before meals <180 mg/dL all other times of the day Blood 10/21/2023 9:43 PM EST 10/21/2023 9:43 PM EST Humberto Lynn MD POINT OF CARE TEST ORDERABLES Performing Organization Address [facility] Co de Phone Number [facility] [place] [address] * XR Chest One View (10/21/2023 8:35 [...] who have questions please contact the health health care technician that requested your imaging first. ? Narrative 10/22/2023 8:45 AM EST EXAMINATION: XR [...] patients who have questions please contactthe health health care technician that requested your imaging first. Humberto P Lynn MD IMG DX ORDERABLES * POCT Glucose (10/21/2023 3:33 PM EST) POC Glucose 75 65 - 199 mg/dL [facility] Comment: Supplemental ranges: <140 mg/dL before meals <180 mg/dL all other times of the day Blood 10/21/2023 3:33 PM EST 10/21/2023 3:33 PM EST Glenn Miranda MD POINT OF CARE TEST O RDERABLES [facility] [place] [address] * ELECTROPHYSIOLOGY PROCEDURE (10/21/2023 3:04 PM EST) Anatomical Region Laterality Modality Other Narrative 10/24/2023 12:54 PM EST Table formatting from the original result was not included. Images from the original result were not included. Delivery Manager: Dilip Berumen MD Fellow: Gera Martell MD Procedures: Dual chamber pacemaker implantation, [...] the entire procedure. Lead and Generator Data Exercise Planner Model # Serial # Generator Barrett FilterEasy [id number] Atrial Lead [employer] [id number] Ventricular Lead [employer] [id number] Pace / Sense Data Sensed wave (mV) [...] of this procedure. Dilip Berumen MD, PhD, [facility] Cardiac Electrophysiology Dilip Berumen MD EP PROCEDURE ORDERAB LES * POCT Glucose (10/21/2023 11:31 AM EST) POC Glucose 104 65 - 199 mg/dL [facility] Comment: Supplemental ranges: <140 mg/dL before meals <180 mg/dL all other times of the day Blood 10/21/2023 11:3 1 AM EST 10/21/2023 11:31 AM EST Glenn Miranda MD POINT OF CARE TEST O RDERABLES [facility] [place] [id number] * (ABNORMAL) Basic Metabolic Panel (non-fasting) (10/21/2023 7:55 AM EST) Glucose Lvl 114 65 - 199 mg/dL [facility] Comment:Diabetes: >=200 mg/d L plus symptoms BUN 23(H) 8 - 18 mg/dL [facility] Creatinine 1.18 0.70 - 1.20 mg/dL [facility] Sodium 143 135 - 145 mmol/L [facility] Potassium 4.2 3.5 - 5.0 mmol/L [facility] Comment: Please note: ??Patients with WBC >100,000 may have falsely elevated Potassium levels. ??For accurate Potassium quantification in these patients send serum separator tube (gold top) for subsequent determinations. ??Contact the Clinical Chemistry Laboratory if there are any questions. Chloride 111(H) 98 - 107 mmol/L [facility] CO2 21(L) 22 - 31 mmol/L [facility] Anion Gap 11 5 - 15 mmol/L [facility] Calcium 10.1 8.5 - 10.5 mg/dL [facility] Estimated GFR 52(L) >=60 mL/min/1. 73 m?? [facility] Comment: This patient's estimated GFR [...] Miranda MD CHEMISTRY ORDERABLES Performing Organization Address [facility]/ZIP Co de Phone Number [facility] [place] [address] * POCT Glucose (10/21/2023 7:54 AM EST) POC Glucose 107 65 - 199 mg/dL [facility] Comment: Supplemental ranges: <140 mg/dL before meals <180 mg/dL all other times of the day Blood 10/21/2023 7:54 AM EST 10/21/2023 7:54 AM EST Glenn Miranda MD POINT OF CARE TEST O RDERABLES Performing Organization Address City/[facility]/ZIP Co [place] [address] * Differential, Automated (10/21/2023 6:04 AM EST) Neutrophils % 56.2 % [facility] Neutr Abs (ANC) 3.81 1.70 - 6.10 x10(3)/[facility] Lymphocytes % 33.4 % [facility] Lymphocytes Abs 2.3 0.9 - 3.2 x10(3)/[facility] Monocytes % 9.0 % [facility] Monocyte Abs 0.6 0.3 - 0.9 x10(3)/[facility] Eosinophils % 0.9 % [facility] Eosinophils Abs 0.1 0.0 - 0.4 x10(3)/[facility] Basophils % 0.4 % [facility] Basophils Abs 0.0 0.0 - 0.1 x10(3)/[facility] Immature Gran % 0.10 % [facility] Comment: Immature granulocytes(IG's)percentage and absolute count will include metamyelocytes, myelocytes, and promyelocytes. Blood smears from CBCs yielding IG's will be scanned manually for concordance. If this scan disagrees with the automated IG or if promyelocytes are noted, a manual differential will be performed. Melanie Gran Abs 0.01 0.00 - 0.04 x10(3)/[facility] Blood 10/21/2023 6:04 AM EST 10/21/2023 6:21 AM EST Narrative Resulting Agency Comment Spec In Lab Clifton Segundo MD [place] [address] * (ABNORMAL) Hemogram (10/21/2023 6:04 AM EST) WBC 6.8 4.0 - 9.5 x10(3)/[facility] RBC 4.06 4.00 - 5.21 x10(6)/[facility] Hemoglobin 12.6 11.7 - 15.5 g/dL [facility] Hematocrit 38.1 35.7 - 45.8 % [facility] MCV 93.8 82.6 - 94.4 fL [facility] MCH 31.0 27.1 - 32.0 pg [facility] MCHC 33.1 31.7 - 35.0 g/dL [facility] Platelets 211 145 - 357 x10(3)/[facility] RDWSD 50.4(H) 37.0 - 46.0 [facility] RDWCV 14.5(H) 11.5 - 14.1 % [facility] MPV 10.9 7.6 - 12.9 [facility] nRBC % Auto 0.0 % [facility] nRBC Abs Auto 0.000 0.000 - 0.000 x10(3)/[facility] Blood 10/21/2023 6:04 AM EST 10/21/2023 6:21 AM EST Narrative Resulting Agency Comment Spec In Lab Clifton Segundo MD HEMATOLOGY ORDERABLE S Performing Organization Address City/[facility]/ZIP Co de Phone Number [facility] [place] [address] * Phosphorus (10/21/2023 6:04 AM EST) Phosphorus 4.5 2.5 - 4.5 mg/dL [facility] Comment:result rechecked-EL Blood 10/21/2023 6:04 AM EST 10/21/2023 6:21 AM EST Narrative Resulting Agency Comment Spec In Lab Glenn Miranda MD CHEMISTRY ORDERABLES [facility] [place] [address] * Magnesium (10/21/2023 6:04 AM EST) Magnesium 0.70 0.69 - 1.07 mmol/L [facility] Blood 10/21/2023 6:04 AM EST 10/21/2023 6:21 AM EST Narrative Resulting Agency Comment Spec In Lab Glenn Miranda MD CHEMISTRY ORDERABLES [facility] [place] [address] * POCT Glucose (10/20/2023 9:06 PM EST) [facility] POC Glucose 116 65 - 199 mg/dL [facility] Comment: Supplemental ranges: <140 mg/dL before meals <180 mg/dL all other times of the day Blood 10/20/2023 9:06 PM EST 10/20/2023 9:06 PM EST Elle Tristan MD POINT OF CARE T EST ORDERABLES Performing Organization Address City/[facility]/ZIP Co de Phone Number [facility] [place] [address] * POCT Glucose (10/20/2023 4:50 PM EST) [facility] POC Glucose 94 65 - 199 mg/dL [facility] Comment: Supplemental ranges: <140 mg/dL before meals <180 mg/dL all other times of the day Blood 10/20/2023 4:50 PM EST 10/20/2023 4:50 PM EST Elle Tristan MD POINT OF CARE T EST ORDERABLES Performing Organization Address City/[facility]/ZIP Co de Phone Number [facility] [place] [address] * Differential, Automated (10/20/2023 1:40 PM EST) Neutrophils % 42.4 % [facility] Neutr Abs (ANC) 2.79 1.70 - 6.10 x10(3)/[facility] Lymphocytes % 48.1 % [facility] Lymphocytes Abs 3.2 0.9 - 3.2 x10(3)/[facility] Monocytes % 8.2 % [facility] Monocyte Abs 0.5 0.3 - 0.9 x10(3)/[facility] Eosinophils % 0.8 % [facility] Eosinophils Abs 0.0 0.0 - 0.4 x10(3)/[facility] Basophils % 0.3 % [facility] Basophils Abs 0.0 0.0 - 0.1 x10(3)/[facility] Immature Gran % 0.20 % [facility] Comment: Immature granulocytes(IG's)percentage and absolute count will include metamyelocytes, myelocytes, and promyelocytes. Blood smears from CBCs yielding IG's will be scanned manually for concordance. If this scan disagrees with the automated IG or if promyelocytes are noted, a manual differential will be performed. Melanie Gran Abs 0.01 0.00 - 0.04 x10(3)/[facility] Blood 10/20/2023 1:40 PM EST 10/20/2023 1:57 PM EST Narrative Resulting Agency Comment Spec In Lab Clifton Segundo MD HEMATOLOGY ORDERABLE S [facility] [place] [address] * (ABNORMAL) Hemogram (10/20/2023 1:40 PM EST) WBC 6.6 4.0 - 9.5 x10(3)/[facility] RBC 4.08 4.00 - 5.21 x10(6)/[facility] Hemoglobin 12.6 11.7 - 15.5 g/dL [facility] Hematocrit 37.4 35.7 - 45.8 % [facility] MCV 91.7 82.6 - 94.4 fL [facility] MCH 30.9 27.1 - 32.0 pg [facility] MCHC 33.7 31.7 - 35.0 g/dL [facility] Platelets 228 145 - 357 x10(3)/[facility] RDWSD 48.5(H) 37.0 - 46.0 fL [facility] RDWCV 14.3(H) 11.5 - 14.1 % [facility] MPV 10.9 7.6 - 12.9 [facility] nRBC % Auto 0.0 % [facility] nRBC Abs Auto 0.000 0.000 - 0.000 x10(3)/[facility] Blood 10/20/2023 1:40 PM EST 10/20/2023 1:57 PM EST Narrative Resulting Agency Comment Spec In Lab Clifton Segundo MD HEMATOLOGY ORDERABLE S [facility] [place] [address] * (ABNORMAL) Phosphorus (10/20/2023 1:40 PM EST) Phosphorus 1.6(L) 2.5 - 4.5 mg/dL [facility] Blood 10/20/2023 1:40 PM EST 10/20/2023 1:57 PM EST Narrative Resulting Agency Comment Spec In Lab Elle Tristan MD CHEMISTRY ORDER EDUAR [facility] [place] [address] * Magnesium (10/20/2023 1:40 PM EST) Magnesium 0.71 0.69 - 1.07 mmol/L [facility] Blood 10/20/2023 1:40 PM EST 10/20/2023 1:57 PM EST Narrative Resulting Agency Comment Spec In Lab Elle Tristan MD CHEMISTRY ORDER EDUAR [facility] [place] [address] * (ABNORMAL) Basic Metabolic Panel (non-fasting) (10/20/2023 1:40 PM EST) Glucose Lvl 92 65 - 199 mg/dL [facility] Comment:Diabetes: >=200 mg/d L plus symptoms BUN 23(H) 8 - 18 mg/dL [facility] Creatinine 1.04 0.70 - 1.20 mg/dL [facility] Sodium 145 135 - 145 mmol/L [facility] Potassium 3.9 3.5 - 5.0 mmol/L [facility] Comment: Please note: ??Patients with WBC >100,000 may have falsely elevated Potassium levels. ??For accurate Potassium quantification in these patients send serum separator tube (gold top) for subsequent determinations. ??Contact the Clinical Chemistry Laboratory if there are any questions. Chloride 110(H) 98 - 107 mmol/L [facility] CO2 20(L) 22 - 31 mmol/L [facility] Anion Gap 15 5 - 15 mmol/L [facility] Calcium 9.9 8.5 - 10.5 mg/dL [facility] Estimated GFR 61 >=60 mL/min/1. 73 m?? [facility] Comment: This patient's estimated GFR [...] Lab Elle Tristan MD CHEMISTRY ORDER EDUAR [facility] [place] [address] * ECHO COMPLETE W CONTRAST (10/20/2023 11:32 AM EST) EF 67 [facility] Anatomical Region Laterality Modality Cardiac Other 10/20/2023 10:3 4 AM EST Narrative 10/20/2023 1:32 PM EST [address] [place] [address] ? Echocardiogram Report Name: KIM PEREZ Dajuan ? Study Date: 10/20/2023 10:34 AMBP: 138/56 mmHg ? Patient Location: [facility] CV24 A : 1960 ? Height: 65.5 in ? Account: [id number] Age: 63 yrs ? Weight: 170 lb Gender: Female ?BSA: 1.9 m2 Ordering Physician: ELLE TRISTAN Referring Physician: DONI HERBERT Exam Location: [facility]. Interpretation Summary Left ventricular size and systolic function is normal. The left ventricular ejection fraction is 67% by Elliott's biplane. There are no segmental wall motion abnormalities. Right ventricular systolic function is normal. No significant valvular disease. No prior studies for comparison. Procedure Complete-25723. Image enhancement Optison was used for left [...] Luis Alfredo Velazquez MD - 10/20/2023 [address] [place] [address] Echocardiogram Report Name: ANAKIM Study Date: 410:34 AMBP: 138/56 mmHg Patient Location: [address] : 1960 Height: 65.5 in Account: [id number] Age: 63 yrs Weight: 170 lb Gender: Female BSA: 1.9 m2 Ordering Physician: ELLE TRISTAN Referring Physician: DONI HERBERT Exam Location: [facility]. Interpretation Summary Left ventricular size and systolic function is normal. The leftventricular ejection fraction is 67% by Elliott's biplane. There are no segmental wallmotion abnormalities. Right ventricular systolic function is normal. No significant valvular disease. No prior studies for comparison. Procedure Complete-[id number]. Image enhancement Optison was used for left [...] documented in this encounter Visit Diagnoses Diagnosis Complete heart block- Primary Atrioventricular block, complete CHB (complete heart block) Atrioventricular block, complete Folliculitis Other specified disease of hair and hair follicles documented in this encounter Admitting Diagnoses Diagnosis Complete [...] Given 10/20/2023 2:00 PM EST 81 mg BUpivacaine (pf) (Marcaine) (5 mg/mL) 0.5% injection 150 mg 150 mg (30 mL), Subcutaneous, ONCE, 1 dose, On Fri10/21/23 at 1400, EP (Intra-Procedure), Routine Given 10/21/2023 1:45 PM EST 150 mg calcium gluconate 1g in sodium chloride 0.9% 50mL 1 g, Intravenous, ONCE, 1 dose, On Fri10/20/23 at 1345, Administer over 60 Minutes, Warning Vesicant/Irritant Medication New Bag 10/20/2023 1:45 PM EST 1 g 50 mL/hr calcium gluconate 1g in sodium chloride 0.9% 50mL 1 g, Intravenous, ONCE, 1 dose, On Fri10/20/23 at 1345, Administer over 60 Minutes, Warning Vesicant/Irritant Medication New Bag 10/20/2023 5:41 PM EST 1 g 50 mL/hr calcium gluconate 1g in sodium chloride 0.9% 50mL 1 g, Intravenous, ONCE, 1 dose, On Fri10/20/23 at 1345, Administer over 60 Minutes, Warning Vesicant/Irritant Medication New Bag 10/20/2023 4:34 PM EST 1 g 50 mL/hr calcium gluconate 1g in sodium chloride 0.9% 50mL 1 g, Intravenous, ONCE, 1 dose, On Fri10/20/23 at 1345, Administer over 60 Minutes, Warning Vesicant/Irritant Medication New Bag 10/20/2023 1:45 PM EST 1 g 50 mL/hr dextrose 10% infusion 250 mL, at 1,000 [...] insulin orders before administering the next dose. enoxaparin (Lovenox) (40 mg/0.4 mL) subcutaneous injection 40 mg 40 mg, Subcutaneous, NIGHTLY, First dose on Fri10/20/23 at 2100, Until Discontinued, Routine Given 10/20/2023 9:03 PM EST 40 mg glucagon (Glucagen) (1 mg/mL) injection solution 1 [...] orders before administering the next dose., Routine glucagon (Glucagen) (1 mg/mL) injection solution 3 mg 3 mg, Intravenous, ONCE, 1 dose, On Fri10/20/23 at 1345, Routine Given 10/20/2023 4:37 PM EST 3 mg glucose (Glutose) 40% oral geL 15-30 g [...] than 240 mg/dL in 2 hours., Routine lidocaine (Xylocaine) (20 mg/mL) 2% injection 400 mg 400 mg (20 mL), Subcutaneous, ONCE, 1 dose, On Fri10/21/23 at 1400, EP (Intra-Procedure), Routine Given 10/21/2023 1:45 PM EST 400 mg magnesium oxide (Mag-Ox) tablet 800 mg 800 mg, Oral, DAILY PRN, Starting on Fri10/20/23 at 1434, Until Fri10/22/23 at 1321, Hypomagnesemia, Administer for serum magnesium of 0.5 - 0.79 mMol/L, Routine Given 10/22/2023 6:15 AM EST 800 mg Given 10/20/2023 4:37 PM EST 800 mg magnesium sulfate 2 g in sterile water 50 mL infusion 2 g, Intravenous, ONCE, 1 dose, On Fri10/22/23 at 1000, Administer over 120 Minutes New Bag 10/22/2023 10:01 AM EST 2 g 25 mL/hr perflutren protein-A microsphers (Optison) (0.22 mg/mL) injection 1.8 mL 1.8 mL, Intravenous, ONCE PRN, 1 dose, Starting on Fri10/20/23 at 1133, Until Fri10/20/23 at 1058, Per Protocol, Routine Given 10/20/2023 10:58 AM EST 1.8 mLs potassium phosphate 10 mMol in sodium chloride 0.9% 100 mL infusion 10 mmol, Intravenous, EVERY 4 HOURS PRN, Starting on Fri10/20/23 at 1449, Until Fri10/22/23 at 1321, Administer over 4 Hours, Hypophosphatemia, Administer one 10 mmol bag, over 4 hours for serum phosphate 2-2.4 mg/dL. potassium phosphate 15 mMol in sodium chloride 0.9% 250 mL infusion 15 mmol, Intravenous, ONCE, 1 dose, On Fri10/20/23 at 1730, Administer over 4 Hours, Administer over 4-6 hours New Bag 10/20/2023 6:49 PM EST 15 mmol 62.5 mL/hr sodium chloride 0.9 % (flush) (BD PosiFlush Normal Saline 0.9) flush 5 mL 5 mL, Intravenous, 2 TIMES DAILY, First dose on Fri10/20/23 at 1400, Until Discontinued, Routine Given 10/22/2023 8:29 AM EST 5 mLs Given 10/21/2023 9:33 PM EST 5 mLs Given 10/21/2023 8:58 AM EST 5 mLs vancomycin (Vancocin) injection 1,000 mg 1,000 mg (1 g), Topical (Top), ONCE, 1 dose, On Fri10/21/23 at 1400, Warning Vesicant/Irritant Medication , EP (Intra-Procedure), Routine, Indication for (Active or Suspected): Prophylaxis Given 10/21/2023 1:46 PM EST 1,000 mg documented in this encounter Active and Recently Administered Medications Times are shown in EST. Scheduled Medication Order 10/20/2023 10/21/2023 10/22/2023 aspirin EC tablet 81 mg 81 mg, Oral, DAILY, First dose on Fri10/20/23 at 1400, Until Discontinued, Routine 1400 (Given - Provider: Alyssa Shearer RN) 0857 (Given - Provider: Gracie Harding, RN)1310 (NOV Hold - Provider: Admin Adt - Reason: Transfer to a Procedural area)1517 (NOV Unhold - Provider: Admin Adt) 0828 (Given - Provider: Ana Durham RN) BUpivacaine (pf) (Marcaine) (5 mg/mL) 0.5% injection 150 mg (COMPLETED) 150 mg (30 mL), Subcutaneous, ONCE, 1 dose, On Fri10/21/23 at 1400, EP (Intra-Procedure), Routine 1345 (Given - Provider: Eugenia Sosa, RN) calcium gluconate 1g in sodium chloride [...] 1345, Routine 1637 (Given - Provider: Alyssa Shearer, RN) insulin lispro (HumaLOG;Admelog) (100 unit/mL) subcutaneous injection vial 0-8 Units 0-8 Units, Subcutaneous, 3 TIMES DAILY WITH MEALS, First dose on Fri10/20/23 at 1400, Until Discontinued, [employer] Give 1 unit for every 10 grams carbohydrate. Hold if not eating or if BG less than 70 mg/dL. , Routine 1400 (Not Given - Provider: Alyssa Shearer, RN - Reason: Order parameters not met)1700 (Not Given - Provider: Alyssa Shearer, RN - Reason: Patient/family refused) 0800 (Not Given - Provider: Gracie Harding RN - Reason: Order parameters not met)1200 (Not Given - Provider: Gracie Harding RN - Reason: NPO)1310 (MAR Hold - Provider: Admin Adt - Reason: Transfer to a Procedural area)1517 (MAR Unhold - Provider: Admin Adt)1759 (Not Given - Provider: Gracie Harding RN [...] Routine 1630 (Not Given - Provider: Alyssa Shearer RN - Reason: Order parameters not met) 0730 (Not Given - Provider: Gracie Harding RN - Reason: Order parameters not met)1132 (Not Given - Provider: Gracie Harding RN - Reason: Order parameters not met)1310 (MAR Hold - Provider: Admin Adt - Reason: Transfer to a Procedural area)1517 (NOV Unhold - Provider: Admin Adt)1630 (Not Given [...] Minutes 1001 (New Bag - Provider: Ana Durham RN)1201 (Due: Stopped - Provider: Ana Durham RN) potassium phosphate 15 mMol in sodium chloride 0.9% 250 mL infusion (COMPLETED) 15 mmol, Intravenous, ONCE, 1 dose, On Fri10/20/23 at 1730, Administer over 4 Hours, Administer over 4-6 hours 1849 (New Bag - Provider: Alyssa Shearer, FRANCESCA)2249 (Stopped - Provider: Kayla Sánchez, FRANCESCA) sodium chloride 0.9 % (flush) (BD PosiFlush Normal Saline 0.9) flush 5 mL 5 mL, Intravenous, 2 TIMES DAILY, First dose on Fri10/20/23 at 1400, Until Discontinued, Routine 1400 (Given - Provider: Alyssa Shearer RN)2103 (Given - Provider: Kayla Sánchez RN) 0858 [...] Suspected): Prophylaxis 1346 (Given - Provider: Eugenia Sosa RN) PRN Medication Order 10/20/2023 10/21/2023 10/22/2023 acetaminophen [...] 1940 (Given - Provider: Marcio Sibley RN) 217 (Given - Provider: Marcio Sibley RN)06 (Given - Provider: Marcio Sibley RN) dextrose 10% infusion(Linked Group 2) 250 [...] Adt - Reason: Transfer to a Procedural area)151 (NOV Unhold - Provider: Admin Adt) glucose [...] of tube = 37.5 grams.), Routine 1310 (NOV Hold - Provider: Admin Adt - Reason: Transfer to a Procedural area)151 (NOV Unhold - Provider: Admin Adt) lidocaine (Xylocaine) 1% (10 mg/mL) injection 3 mg 3 mg (0.3 mL), Subcutaneous, ONCE PRN, 1 dose, Starting on Fri10/20/23 at 1304, Until Fri10/22/23 at 1321, for discomfort with PIV insertion, Routine 1310 ([facility] Hold - Provider: Admin Adt - Reason: Transfer to a Procedural area)1517 ([facility] Unhold - Provider: Admin Adt) magnesium oxide (Mag-Ox) tablet 800 mg 800 mg, Oral, DAILY PRN, Starting on Fri10/20/23 at 1434, Until Fri10/22/23 at 1321, Hypomagnesemia, Administer for serum magnesium of 0.5 - 0.79 mMol/L, Routine 1637 (Given - Provider: Alyssa Shearer, RN) 1310 ([facility] Hold - Provider: Admin Adt - Reason: Transfer to a Procedural area)1517 ([facility] Unhold - Provider: Admin Adt) 0615 (Given - Provider: Marcio Sibley RN) nitroGLYcerin (Nitrostat) disintegrating tablet 0.4 mg [...] last 24 to 72 hours., Routine 1310 ([facility] Hold - Provider: Admin Adt - Reason: Transfer to a Procedural area)1517 ([facility] Unhold - Provider: Admin Adt) perflutren protein-A [...] Adt - Reason: Transfer to a Procedural area)151 (NOV Unhold - Provider: Admin Adt) Linked [...] Routine documented in this encounter Care Teams Cpa Tax Relationship Specialty Start Date End Date Marcio Devlin DO [address] [place] [address] PCP - General Family Medicine 11/11/17 documented as of this encounter
--- OUTSIDE RECORDS SUMMARY | 2024-04-08 02:26 | XMS_ITS | Encounter Summary ---
Author Organization [facility] [place] [address] Care Team Providers Care Child Welfare Director Name Role Phone Marcio Devlin DO Primary Care Provider [phone] Encounter Details Date Type Department Care Team (Late st Contact Info) Description 10/20/2023 [place] [phone] Nba Rincon MD [facility] [place] [address] Social History Tobacco Use Types Packs/Day Years Used Date Smoking Tobacco: Never Smokeless Tobacco: Never Alcohol Use Standard Drinks/Week Comments Yes 0 (1 standard drink = 0.6 oz pure alcohol) once every couple of months or less [facility] Utilities Answer Date Recorded In the past 12 months has [employer], gas, oil, or water [employer] [place] threatened to shut off services in your [...] place to sleep or slept in a mcc (including now)? No 10/21/2023 DH IPV Inpatient [...] encounter Miscellaneous Notes * Telephone Encounter - Nba Rincon MD - 10/20/2023 6:16 AM EST Images from the original note were not included. [facility] [place] [address] [address] 10/20/2023 Kim Funes Initial Contact Date: 10/20/2023 Initial Contact Time: 6:16 AM Referring Provider: Cesar Albert DO Patient Location: [facility] Past Medical History: UC associated ankylosing spondylitis on Rinvoq Hypertension No cardiac history Brief HPI: This is a 63-year-old female with ulcerative colitis and ankylosing spondylitis, hypertension who presents for lightheadedness and shortness of breath. Apparently over the past couple of weeks she has had some intermittent lightheadedness and shortness of breath. It has not been persistent until now. She recently had a PCP visit where her heart ratewas noted to be a little slower than usual, in the 50s. More recently over the last couple of days,she has noticed her heart rate in the 30s when she has had her symptoms. No history of tick bites. No history of any cardiac disease. She is on metoprolol succinate 50 mg daily for hypertension. Otherwise, no syncope, presyncope, palpitations. The ED provider gave atropine without improvement. Theyare requesting transfer for permanent pacemaker evaluation. Exam: Blood pressure 135/80, pulse 35, respiratory rate 14, saturating 90% on room air. Extremities well-perfused. No murmurs. Pertinent Diagnostic Findings: Troponin trend: normal ProBNP not checked TSH normal BMP notable for Cr 1.4, baseline 1.2 CBC normal ECG (10/20/23): Complete heart block with junctional escape Past Cardiac Studies: None Assessment/Recommendations: 63-year-old female with history of ulcerative colitis and hypertension who presents with symptomatic bradycardia found to be in complete heart block. We will accept her to our [facility] for complete heart block. It sounds as if she is perfusing and does not need emergent TVP. She has a narrow junctional escape rhythm which is reassuring. They have ZOLLpads in place. Plan to have EP evaluation for permanent pacemaker. The above recommendations were based on my discussion with the outside hospital provider. I have not personally interviewed or examined this patient. I advised the provider to call the transfer center back with any changes in the patient condition. documented in this encounter Plan of Treatment Upcoming Encounters Date Type Department Care Team (Late st Contact Info) Description 04/19/2024 10:00 AM EDT Hospital Encounter Non-[place] [address] Arrived 04/29/2024 9:50 AM [place] [address] Luis Alfredo Velazquez MD [facility] [place] [address] 04/29/2024 9:50 AM EDT Appointment MRI at [place] [phone] Luis Alfredo Velazquez MD [facility] [place] [address] 06/07/2024 2:30 PM EDT TH Visit (TeleHealth) Gastroenterology at [address] Dajuan Rachel MD [facility] [place] [address] 07/02/2024 2:00 PM EDT Appointment Non-Invasive Cardiology Lab [place] [phone] Luis Alfredo Velazquez MD [facility] [place] [address] 07/02/2024 4:40 PM EDT Office Visit Cardiology at [address] [address] Luis Alfredo Velazquez MD [facility] [place] [address] documented as of this encounter Visit Diagnoses Not on filedocumented in this encounter Care Teams Child Welfare Director Relationship Specialty Start Date End Date Marcio Devlin DO [address] [place] [id number] PCP - General Family Medicine 11/11/17 documented as of this encounter
--- OUTSIDE RECORDS SUMMARY | 2024-04-08 02:26 | XMS_ITS | Encounter Summary ---
Author Organization [facility] Address [facility] [place] [address] Care Team Providers Care Gambling Dealer Name Role Phone Marcio Devlin DO Primary Care Provider [phone] Encounter Details Date Type Department Care Team (Latest Contact Info) Description 10/07/2023 10:00 AM EST Office Visit Rheumatology at [facility] [place] [address] Gabe Fong MD [facility] [place] [address] High risk medication use; Medication monitoring encounter; Ulcerative colitis without complications, unspecified location; Ankylosing spondylitis of cervical region; Primary osteoarthritis of both hips; Inflammatory arthropathy Social History Tobacco Use Types Packs/Day Years [...] place to sleep or slept in a intermediate (including now)? No 05/03/2022 Sex and Gender Information Value Date Recorded Sex Assigned at Female 07/21/2021 4:56 PM EDT Gender Identity Female 07/21/2021 4:56 PM EDT Sexual Orientation Straight 07/21/2021 4: 56 PM EDT documented as of this encounter Last Filed Vital Signs Vital Sign Reading Time Taken Comments Blood Pressure 142/54 10/07/2023 9:46 AM EST Pulse 68 10/07/2023 9:46 AM EST Temperature 36.2 ??C (97.2 ??F) 10/07/2023 9:46 AM ES T Respiratory Rate 16 10/07/2023 9:46 AM EST Oxygen Saturation 99% 10/07/2023 9:46 AM EST Inhaled Oxygen Concentration - - Weight 78.2 kg (172 lb 4.8 oz) 10/07/2023 9:46 A M EST Height 166.4 cm (5' 5.51) 10/07/2023 9:46 AM ES T Body Mass Index 28.23 10/07/2023 9:46 AM EST documented in this encounter Progress Notes * Gabe Fong MD - 10/07/2023 10:00 AM EST Images from the original note were not included. Rheumatology Follow-Up Note PCP: Marcio Devlin DO, [...] Joint pains have resolved. UC under good control recent colonoscopy with path pending but word back from GI specialist was that the it was normals Denies synovitis (swollen red or warm joints) or MS Recent UTI treated did not hold Rinvoq. She was educate. 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 Physical Exam: BP 142/54 Pulse 68 Temp 36.2 ??C (97.2 ??F) (Temporal) Resp 16 Ht 166.4 cm (5' 5.51) Wt 78.2 kg (172 lb 4.8 oz) SpO2 99% BMI 28.23 kg/m?? General: NAD Neck: Reduced ROM Cardiovascular: RR, (-)murmurs, rubs, or gallops. Lungs: Clear to auscultation bilaterally. (-)R/R/W Abdomen: Soft, non tender, non distended, + bowel sounds, Neuro: Alert and oriented x3. Cranial nerves III through XII grossly intact. Skin: (-)ulcers, (-)rash Vascular: Pulses are equal in all extremities. MSK Back: Non tender over the spine and costovertebral angles bilaterally. (-)Radha Morales 13.5 not assessed Rheumatology Follow-Up Video Note PCP: Marcio Devlin DO, Rheumatological History: [...] 2005 Interval History: Kim Funes is a 62 y.o. female PMHx of MÉNDEZ and UC with presenting for follow up who hasbeen maintained on Humira and Sulfasalazine since beginning of 2010 and has been doing overall verywell since with no ADRs reported or known from current medication regimen. She describes muscle spasms of the mid back over the left rib. Flexeril and TENS unit does seem to be successful.. Hip pain and lower leg pain that been less problematic she reports because she is tall and she is a real she cannot raise her table. Height which is somewhat problematic and has been doing stuff at work to raise it with by using pots and pans we discussed possibly looking into. Border something that she can stack up on to keep surface flap if that she does okay. She knows that shehas to take breaks and admits that she cannot sit down due to risk in the kitchen. She has some concerns about her GI health Stelara is not covered the ankylosing spondylitis associated with ulcerative colitis however she has been talking with her cantilever crane operator about getting in for repeat colonoscopy but is having difficulty scheduling it. She feels that staffing does not understand that this is not a routine but related to underlying disease and that may be an issue. We will reach out to gastroenterology today to let them know of her concerns. Rheumatic history (x) means positive Iritis Dactylitis [...] gain Head and neck Headaches Neck pain/stiffness slightly imprved Lymphadenopathy Ocular erythema Xerophthalmia Gritty eyes Eye pain Photophobia Oral sores Xerostomia Jaw claudication Cardiopulmonary Chest discomfort Dyspnea Cough Hemoptysis Gastrointestinal Dysphagia Heartburn Nausea Emesis Abdominal pain Hematochezia Diarrhea Constipation Genitourinary Hematuria Dysuria Musculoskeletal Muscle weakness Myalgia Shoulder pain Raynaud's Neuropsychiatric Paresthesia Dysesthesia Dizziness/vertigo improved Anxiety Depression Cognitive problems Initial insomnia Night awakenings Nonrestorative sleep Dermatologic Xerosis cutis Photosensitivity Rash Patient's medications, allergies, past medical, surgical, social and family histories were reviewedand updated Patient's medications, allergies, past medical, surgical, social and family histories were reviewedand updated as appropriate. Physical Exam: BP 145/59 Pulse 58 Temp 35.6 ??C (96.1 ??F) (Temporal) Ht 166.4 cm (5' 5.5) Wt 76.7 kg (169 lb 3.2 oz) SpO2 100% BMI 27.73 kg/m?? General: NAD HEENT: Mucous membranes are moist, no oral mucosal ulcerations, Neck: Reduced ROM Cardiovascular: RR, (-)murmurs, rubs, or gallops. Lungs: Clear to auscultation bilaterally. (-)R/R/W Abdomen: Soft, non tender, non distended, + bowel sounds, no hepatosplenomegaly. Neuro: Alert and oriented x3. Cranial nerves III through XII grossly intact. Skin: (-)ulcers, (-)rash Vascular: Pulses are equal in all extremities. MSK Back: Non tender over the spine and costovertebral angles bilaterally. (-)Radha Shober 13.5 not assessed tday Extremities Shoulders: FROM, non-tender to palpation Elbows:FROM, [...] medications. Ulcerative colitis related with ankylosing spondylitis- - UC quiet-status post colonoscopy -Ankylosing spondylitis- rinvoq ordered to start 05/02/23 and stop stelara - doing very well with low Dz activity High risk medication FDA review of a large, randomized safety clinical trial, we have concluded that there is an increased risk of serious heart-related events such as heart attack or stroke, cancer, blood clots, and with the use of KAREN inhibitors such as tofacitinib GI has ordered similar monitoring labs Liipdis with next set of labs Orders Placed This Encounter Procedures Creatinine Return in about 3 months (around 01/06/2024) for In Person. > 48minutes total with phone calls and documentation discussing documented in this encounter Plan of Treatment Upcoming Encounters Date Type Department Care Team (Late st Contact Info) Description 04/19/2024 10:00 AM EDT Hospital Encounter Non-[place] [phone] Arrived 04/29/2024 9:50 AM EDT Appointment MRI at [place] [phone] Luis Alfredo Velazquez MD [facility] [place] [address] 04/29/2024 9:50 AM ED[place] [phone] Luis Alfredo Velazquez MD [facility] [place] [address] 06/07/2024 2:30 PM EDT TH Visit (TeleHealth) Gastroenterology at [place] [phone] Dajuan Rachel MD [facility] DR GASTROENTEROLOGY DEPT. [place], [place] [phone] 07/02/2024 2:00 PM EDT Appointment Non-[place] [address] Luis Alfredo Velazquez MD [facility] [place] [address] 07/02/2024 4:40 PM EDT Office Visit Cardiology at [address] [phone] Luis Alfredo Velazquez MD [facility] [place] [address] documented as of this encounter Visit Diagnoses Diagnosis High risk medication use Encounter for long-term (current) use of other medications Medication monitoring encounter Encounter for therapeutic drug monitoring Ulcerative colitis without complications, unspecified location Ankylosing spondylitis of cervical region Ankylosing spondylitis Primary osteoarthritis of both hips Primary localized osteoarthrosis, pelvic region and thigh Inflammatory arthropathy Arthropathy, unspecified, site unspecified documented in this encounter Care Teams Gambling Dealer Relationship Specialty Start Date End Date Marcio Devlin DO [address] [place] [address] PCP - General Family Medicine 11/11/17 documented as of this encounter
--- OUTSIDE RECORDS SUMMARY | 2024-04-08 02:26 | XMS_ITS | Encounter Summary ---
Author Organization [facility] Address [facility] [place] [address] Care Team Providers Care Health Safety Instructor Name Role Phone Marcio Devlin DO Primary Care Provider [phone] Reason for Visit * Auth/Cert (Routine) Specialty Diagnoses / Procedures Referred By Contac t Referred To Contact Diagnoses Ulcerative (chronic) pancolitis with unspecified complications UC surveillance - Rinvoq started 04/2023. PLEASE BOOK FOR SEP 2023 Procedures PRO COLONOSCOPY, DIAGNOSTIC PRO COLONOSCOPY, BIOPSY PRO COLONOSCOPY, REMV LESN, SNARE PRO ANES, LWR INTESTINE, NOS COLONOSCOPY, DIAGNOSTIC (WRVU 3.26) Dajuan Rachel MD [facility] [place] [address] [facility] Referral ID Status Reason Start Date Expiration Date Visits Re quested Visits Authorized [id number] 1 1 Encounter Details Date Type Department Care Team (Late st Contact Info) Description 09/18/2023 3:00 PM EST - 09/18/2023 4:00 PM EST [place] [address] Dajuan Rachel MD [facility] DR GASTROENTEROLOGY DEPT. [place], [place] [id number] COLONOSCOPY FLEXIBLE, WITH BX (WRVU 3.56) Social History Tobacco Use Types Packs/Day Years [...] Sign Reading Time Taken Comments Blood Pressure 106/51 09/18/2023 4:00 PM EST Pulse 61 09/18/2023 4:00 PM EST Temperature 36.6 ??C (97.8 ??F) 09/18/2023 2:38 PM ES T Respiratory Rate 24 09/18/2023 4:00 PM EST Oxygen Saturation 100% 09/18/2023 4:00 PM EST Inhaled Oxygen Concentration - - [...] occurs, please contact your Doctor. Please call [phone] before 8pm Mon-Fri with problems, questions or concerns. If you call after 8pm or on weekends, call the Hospital at [phone] and ask to speak to the Drying Oven Tender sales contract administrator and the picking machine operator helper will contact that person for you. When should you call for help? Call [phone] anytime you think you may need emergency [...] any problems. Where can you learn more? myD- View your After Visit Summary and more online at [email or web address] If you would like to provide feedback [...] cost to you. Content Version: 12.2 ?? [id number] [employer]. Care instructions adapted under license by [facility]. If you have questions about a medical condition or this instruction, always ask your healthcare professional. [employer] disclaims any warranty or liability for your [...] by mouth daily. SUMAtriptan (IMITREX) 20 mg/actuation [place], Non-Aerosol 1 spray as needed. 11/03/2017 metFORMIN [...] Hepatology Pre-Procedure History and Physical Exam Procedure: Crawford Indication: UC restaging and surveillance Patient Active [...] AM EDT Hospital Encounter Non[place] [address] Arrived 04/29/2024 9:50 AM EDT Appointment MRI at [address] Luis Alfredo Velazquez MD [facility] [place] [address] 04/29/2024 9:50 AM EDT Appointment MRI at [address] Luis Alfredo Velazquez MD [facility] [place] [address] 06/07/2024 2:30 PM EDT TH Visit (TeleHealth) Gastroenterology at [place] [address] Dajuan Rachel MD [facility] [place] [address] 07/02/2024 2:00 PM EDT Appointment Non-Invasive Cardiology Lab [address] Luis Alfredo Velazquez MD [facility] [place] [address] 07/02/2024 4:40 PM EDT Office [place] [address] Luis Alfredo Velazquez MD [facility] [place] [address] documented as of this encounter Procedures Procedure Name Priority Date/Time Associated Diagnosis Comments SPECIMEN TO PATHOLOGY Routine 09/18/2023 4:27 PM EST SPECIMEN TO PATHOLOGY Routine 09/18/2023 4:27 PM EST SPECIMEN TO PATHOLOGY Routine 09/18/2023 4:27 PM EST SPECIMEN TO PATHOLOGY Routine 09/18/2023 4:27 PM EST SURGICAL PATHOLOGY REPORT Routine 09/18/2023 4:13 PM EST COLONOSCOPY Routine 09/18/2023 3:57 PM EST Colonoscopy, Biopsy ([id number]) 09/18/2023 3:47 PM EST Ulcerative pancolitis with complication documented in this encounter Results * Specimen to Pathology (09/18/2023 4:27 PM EST) AP Specimen 09/18/2023 4:27 PM EST 09/18/2023 4:27 PM EST Narrative [facility] - 09/18/2023 4:27 PM EST Specimen requisition ordered. ??Separate Pathology report to follow L Jose Rachel MD PATHOLOGY/CYTOLOGY O RDERADARLEEN Performing Organization Address [facility] Co de Phone Number [facility] [place] [address] * Specimen to Pathology (09/18/2023 4:27 PM EST) AP Specimen 09/18/2023 4:27 PM EST 09/18/2023 4:27 PM EST Narrative [facility] - 09/18/2023 4:27 PM EST Specimen requisition ordered. ??Separate Pathology report to follow L Jose Rachel MD PATHOLOGY/CYTOLOGY O RDERABLES Performing Organization Address [facility]/ZIP Co de Phone Number [facility] [place] [address] * Specimen to Pathology (09/18/2023 4:27 PM EST) AP Specimen 09/18/2023 4:27 PM EST 09/18/2023 4:27 PM EST Narrative [facility] - 09/18/2023 4:27 PM EST Specimen requisition ordered. ??Separate Pathology report to follow L Jose Rachel MD PATHOLOGY/CYTOLOGY O IRMA Performing Organization Address [facility] [place] [address] * Specimen to Pathology (09/18/2023 4:27 PM EST) AP Specimen 09/18/2023 4:27 PM EST 09/18/2023 4:27 PM EST Narrative [facility] - 09/18/2023 4:27 PM EST Specimen requisition ordered. ??Separate Pathology report to follow L Jose Rachel MD PATHOLOGY/CYTOLOGY O IRMA Performing Organization Address [facility] [place] [address] * Surgical Pathology Report (09/18/2023 4:13 PM EST) FINAL DIAGNOSIS (AP) [id number] ? Location: 4T; EA11; A The signing [...] MD Verified: ??09/26/2023 15:23 ??Pathologist Performed at: ??-[facility] Dept. of Pathology, [place] [address] Assistant Counsel: Dg Brown MD, FCAP, ??CLIA Certificate: [id number] SPECIMEN(S) SUBMITTED A - nondirected right colon [...] cassettes labeled D1-D2. ??SM 09/26/2023 3:23 PM [facility] 09/18/2023 4:13 PM EST L Jose Rachel MD PATHOLOGY/CYTOLOGY Clotilde SOLIS [facility] [place] [address] * COLONOSCOPY (09/18/2023 3:57 PM EST) COLONOSCOPY [facility] Endoscopy ___ Procedure Date: 09/18/2023 3:57 PM ? Patient Name: Kim Funes ? [facility]: [id number] ? Date of : 1960 ? Age: 63 ? Order #: [id number] ? Instrument Name: [id number] ? ___ Procedure: ? Colonoscopy Indications: ? [...] preparation was evaluated ? using the BBPS ([place] Bowel ? Preparation Scale) with scores of: [...] ? - Please have labs checked at [facility]. ? - Await pathology results. ? Attending Participation: ? I personally performed the entire procedure. ? _ L. Jose Rachel MD 09/18/2023 5:05:33 PM Number of Addenda: 0 Note Initiated On: 09/18/2023 3:57 PM PROVATION 09/18/2023 3:57 PM EST Marcio Devlin DO GENERAL SURGICAL ORD ERABLES PROVATION documented in this encounter Visit Diagnoses Diagnosis Ulcerative pancolitis with complication documented in this encounter Administered Medications Inactive Administered Medications - up to 3 most recent administrations Medication Order MAR Action Action Date Dose Rate Site fentaNYL (pf) (50 mcg/mL) multi-dose injection PRN, Starting on Lorna 09/18/23 at 1550, Until Lorna 24 at 1905, Intra-Operative (Intra-Procedure), Routine Given 09/18/2023 4:05 PM EST 25 mcg Given 09/18/2023 3:59 PM EST 25 mcg Given 09/18/2023 3:53 PM EST 50 mcg lactated ringers infusion 100 mL/hr, Intravenous, CONTINUOUS, Starting on Lorna 09/18/23 at 1500, Until Lorna 09/18/23 at 1656, Endoscopy (Day of Procedure) New Bag 09/18/2023 2:46 PM EST 100 mL/hr 100 mL/hr midazolam (pf) (Versed) (1 mg/mL) multi-dose injection PRN, Starting on Lorna 09/18/23 at 1550, Until Lorna 09/18/23 at 1905, Intra-Operative (Intra-Procedure), Routine Given 09/18/2023 4:05 PM EST 1 mg Given 09/18/2023 3:59 PM EST 1 mg Given 09/18/2023 3:53 PM EST 1 mg documented in this encounter Active and [...] Sugar Ruffin RN)1559 (Given - Provider: Sugar Ruffin, FRANCESCA)1605 (Given - Provider: Sugar Ruffin RN) documented in this encounter Care Teams Health Safety Instructor Relationship Specialty Start Date End Date Marcio Devlin DO [address] [place] [address] PCP - General Family Medicine 11/11/17 documented as of this encounter
--- OUTSIDE RECORDS SUMMARY | 2024-04-08 02:26 | XMS_ITS | Encounter Summary ---
Author Organization [facility] [place] [address] Care Team Providers Care Enterprise Application Administrator Name Role Phone Marcio Devlin DO Primary Care Provider [phone] Encounter Details Date Type Department Care Team (Late st Contact Info) Description 09/18/2023 Orders [place] [address] Dajuan Rachel MD [facility] [place] [address] Ulcerative pancolitis with complication Social History Tobacco [...] AM EDT Hospital Encounter Non-Invasive [place] [phone] Arrived 04/29/2024 9:50 [place] [phone] Luis Alfredo Velazquez MD [facility] [place] [address] 04/29/2024 9:50 AM [place] [phone] Luis Alfredo Velazquez MD [facility] [place] [address] 06/07/2024 2:30 PM EDT TH Visit (TeleHealth) [place] [address] Dajuan Rachel MD [facility] [place] [address] 07/02/2024 2:00 PM EDT Appointment Non-[place]vasive [place] [address] Luis Alfredo Velazquez MD [facility] [place] [address] 07/02/2024 4:40 PM EDT Office Visit Cardiology at [address] [phone] Luis Alfredo Velazquez MD [facility] [place] [address] Scheduled Orders Name Type Priority Associated Diagnoses Orde r Schedule CRP, acute inflammation Lab Routine Ulcerative pancolitis with complication Every 4 Weeks for 9 Occurrences starting 09/18/2023 until 09/18/2024 CBC (with Diff) Lab Routine Ulcerative pancolitis with complication Every 4 Weeks for 13 Occurrences starting 09/18/2023 until 09/18/2024 Hepatic Function Panel Lab Routine Ulcerative pancolitis with complication Every 4 Weeks for 9 Occurrences starting 09/18/2023 until 09/18/2024 Iron and TIBC Lab Routine Ulcerative pancolitis with complication Expected: 09/18/2023 (Approximate), Expires: 03/19/2024 Ferritin Lab Routine Ulcerative pancolitis with complication Expected: 09/18/2023 (Approximate), Expires: 03/19/2024 documented as of this encounter Visit Diagnoses Diagnosis Ulcerative pancolitis with complication documented in this encounter Care Teams Enterprise Application Administrator Relationship Specialty Start Date End Date Marcio Devlin DO [address] [place] [address] PCP - General Family Medicine 11/11/17 documented as of this encounter
--- OUTSIDE RECORDS SUMMARY | 2024-04-08 02:27 | XMS_ITS | Encounter Summary ---
Author Organization [facility] [place] [address] Care Team Providers Care Commercial Agent Name Role Phone Marcio Devlin DO Primary Care Provider Encounter Details Date Type Department Care Team (Late st Contact Info) Description 12/06/2022 Ancillary Procedure [place] [phone] Marcio Devlin DO [address] [place] [address] Social History Tobacco Use Types Packs/Day Years [...] place to sleep or slept in a assisted (including now)? No 05/03/2022 Sex and Gender Information Value Date Recorded Sex Assigned at Female 07/21/2021 4:56 PM EDT Gender Identity Female 07/21/2021 4:56 PM EDT Sexual Orientation Straight 07/21/2021 4: 56 PM EDT documented as of this encounter Plan of Treatment Upcoming Encounters Date Type Department Care Team (Late st Contact Info) Description 04/19/2024 10:00 AM EDT Hospital Encounter Non-Invasive [place] [phone] Arrived 04/29/2024 9:50 [place] [address] Luis Alfredo Velazquez MD [facility] [place] [address] 04/29/2024 9:50 AM [place] [phone] Luis Alfredo Velazquez MD [facility] [place] [address] 06/07/2024 2:30 PM EDT TH Visit (TeleHealth) Gastroenterology at [place] [phone] Dajuan Rachel MD [facility] GASTROENTEROLOG[place] [address] 07/02/2024 2:00 PM EDT Appointment Non-Invasive [place] [phone] Luis Alfredo Velazquez MD [facility] [place] [address] 07/02/2024 4:40 PM EDT Office Visit Cardiology at [address] [phone] Luis Alfredo Velazquez MD [facility] [place] [address] documented as of this encounter Procedures Procedure Name Priority Date/Time Associated Diagnosis Comments FILM LIBRARY STORAGE ONLY DX HAND Routine 12/06/2022 12:00 AM EDT documented in this encounter Results * Film Library- Storage Only DX Hand (12/06/2022 12:00 AM EDT) Narrative [facility] - 12/09/2022 10:02 AM EDT This exam is auto-finalizing. It's purpose is for storage only. Marcio Devlin DO [facility] FILM LIBRARY ORD ERABLES [place], [place] documented in this encounter Visit Diagnoses Not on filedocumented in this encounter Care Teams Commercial Agent Relationship Specialty Start Date End Date Marcio Devlin DO [address] [place] [address] PCP - General Family Medicine 11/11/17 documented as of this encounter
--- OUTSIDE RECORDS SUMMARY | 2024-04-08 02:27 | XMS_ITS | Encounter Summary ---
Author Organization [facility] [place] [address] Care Team Providers Care Tobacco Drummer Name Role Phone Marcio Devlin DO Primary Care Provider [phone] Reason for Visit * Reason Comments Specialty Pharmacy Review Upadacitinib ( Rinvoq) 15mg Tablet Encounter Details Date Type Department Care Team (Late st Contact Info) Description 03/06/2023 Specialty [place] [address] Alison Ortiz, [facility] Social History Tobacco Use Types Packs/Day Years [...] in a nursing home (including now)? No 05/03/2022 Sex and Gender Information Value Date Recorded Sex Assigned at Female 07/21/2021 4:56 PM EDT Gender Identity Female 07/21/2021 4:56 PM EDT Sexual Orientation Straight 07/21/2021 4: 56 PM EDT documented as of this encounter Progress Notes * Alison Ortiz - 03/06/2023 11:59 PM EDT The - Specialty Pharmacy has completed a benefits investigation for Kim Funes to review their eligibility to fill at [facility]. Per patient's medication list they are prescribed Rinvoq and the medication is not able to be filled at the [facility]. Kim Funes must fill with [facility] under current insurance plan's mandate. documented in this encounter Plan of Treatment Upcoming Encounters Date Type Department Care Team (Late st Contact Info) Description 04/19/2024 10:00 AM EDT Hospital Encounter Non[place] [phone] Arrived 04/29/2024 9:50 AM EDT [place] [phone] Luis Alfredo Velazquez MD [facility] [place] [place] [address] 04/29/2024 9:50 AM EDT Appointment MRI at [place] [address] Luis Alfredo Velazquez MD [facility] [place] [address] 06/07/2024 2:30 PM EDT TH Visit (TeleHealth) Gastroenterology at [address] Dajuan Rachel MD [facility] DR [place] [address] 07/02/2024 2:00 PM EDT Appointment Non-[place]vasive [place] [address] Luis Alfredo Velazquez MD [facility] [place] [place] [address] 07/02/2024 4:40 PM EDT Office Visit Cardiology at [place] [phone] Luis Alfredo Velazquez MD [facility] [place] [address] documented as of this encounter Visit Diagnoses Not on filedocumented in this encounter Care Teams Tobacco Drummer Relationship Specialty Start Date End Date Marcio Devlin DO [address] [place] [address] PCP - General Family Medicine 11/11/17 documented as of this encounter
--- OUTSIDE RECORDS SUMMARY | 2024-04-08 02:27 | XMS_ITS | Encounter Summary ---
Author Organization Formerly [facility] [address] Care Team Providers Care Rate Engineer Name Role Phone Marcio Devlin DO Primary Care Provider [phone] Reason for Referral * Occupational Therapy (Routine) - Closed Specialty Diagnoses / Procedures Referred By Missy escalera Referred To Contact Occupational Therapy Diagnoses Inflammatory arthropathy Arthralgia of both hands Camila Alex MD [facility] [place] [address] [facility] [address] [place] [address] Referral ID Status Reason Start Date Expiration Date V isits Requested Visits Authorized [id number] Closed Evaluate and Treat 01/28/2023 01/28/2024 100 100 Encounter Details Date Type Department Care Team (Latest Contact Info) Description 01/28/2023 2:30 PM EDT Procedure [place] [address] Camila Alex MD [facility] [place] [address] Ankylosing spondylitis of cervical region; Ulcerative colitis without complications, unspecified location; Primary osteoarthritis of both hips; Inflammatory arthropathy; [...] slept in a mcc (including now)? No 05/03/2022 Sex and Gender Information Value Date Recorded Sex Assigned at Female 07/21/2021 4:56 PM EDT Gender Identity Female 07/21/2021 4:56 PM EDT Sexual Orientation Straight 07/21/2021 4: 56 PM EDT documented as of this encounter Last Filed Vital Signs Vital Sign Reading Time Taken Comments Blood Pressure 118/57 01/28/2023 2:22 PM EDT Pulse 64 01/28/2023 2:22 PM EDT Temperature 36.3 ??C (97.3 ??F) 01/28/2023 2:22 PM ED T Respiratory Rate 12 01/28/2023 2:22 PM EDT Oxygen Saturation 98% 01/28/2023 2:22 PM EDT Inhaled Oxygen Concentration - - Weight 77.1 kg (170 lb) 01/28/2023 2:22 PM EDT Height - - Body Mass Index 27.86 08/06/2022 9:14 AM EST documented in this encounter Progress Notes * Camila Alex - 01/28/2023 2:30 PM EDT Rheumatology Progress and Musculoskeletal Ultrasound Note Rheum History Dr Fong patient UC associated on stelara Dx in 2010 Xray 2014 of b/l SI joints H/o Iritis x 3 H/o erythema nodosum associated with UC Meds tried: Humira q1week, SSZ Interval History Patient is here for hand US Patient of Dr Fong Joints were good on Humira, 1 yr ago started observing AM stiffness Few months ago starting observing IP stiffness that lasts all day No red/hot/swollen No rashes Overuse makes the joints achy Arthritis tylenol, helps a bit Uses voltaren, helps a bit. Only uses it BID cz she cannot use it at work Does not use compression, wax bath Back has been active and bothersome too Exam General: AO x 3 Wrists: Non tender, good ROM, no swelling Hands: No synovitis, good fist, claw 1cm above the plane, no tenderness. B/l leticia and heberden nodes. US findings Date of service: 01/28/2023 Indication for Exam: Hand pain, stiffness B-mode ultrasound is performed utilizing an 8-18 mHz linear probe. Static real- time views in longitudinal and transverse (short axis) orientation were obtained. Images are available on the Rheumatology Image Measurement Department Chief Clerk Archive. Images of the right hand demonstrate no cortical irregularity or destruction. Synovial fluid not noted at the R 2nd DIP joint margins with negative doppler. No rheumatoid erosions are seen. Flexor tendons are intact with no tenosynovial fluid or distension. Dynamic testing shows normal motion of the flexor tendon. No evidence of dactylitis. Impression - Osteoarthritis - Normal tendons - Small fluid collection around 2nd right PIP but no doppler signal Patient has a component of erosive OA where her pain gets worse with use. Her xray showed a DIP erosion. She is using diclofenac gel and tylenol with some relief. We can optimize OA management After changing to stelara about a year ago, her hands started having inflammatory symptoms which were mostly in the AM but now lasting all day. She also has a component of inflammatory arthropathy. Her CRP is slightly elevated. She had active back disease. Joints were better on humira but IBD was not. US today did show some fluid collection around 2nd R PIP that was non dopplerable. Will defer further management to Dr Fong after getting some imaging. Plan - neck xray given cervical complaints - SI xray to look for progression of disease from last year when she had MRI hips - OT referral for compression gloves - F/u with Dr Fong next available to discuss next steps Patient seen and discussed with Dr Haley * Lola Haley DO - 01/28/2023 2:30 PM EDT ATTENDING ADDENDUM The patient's history was reviewed, and I interviewed and examined the patient with Dr. Alex. I agree with her summary, findings, and plan. documented in this encounter Plan of Treatment Upcoming Encounters Date Type Department Care Team (Late st Contact Info) Description 04/19/2024 10:00 AM EDT Hospital Encounter Non-[place] [phone] Arrived 04/29/2024 9:50 AM EDT [place] [phone] Luis Alfredo Velazquez MD [facility] [place] [address] 04/29/2024 9:50 AM EDT [place] [phone] Luis Alfredo Velazquez MD [facility] [place] [address] 06/07/2024 2:30 PM EDT TH Visit (TeleHealth) Gastroenterology at [place] [phone] Dajuan Rachel MD [facility] GASTROENTEROLOGY DEPT. [place], [place] [phone] 07/02/2024 2:00 PM EDT Appointment Non-[place] [address] Luis Alfredo Velazquez MD [facility] [address] [place], [place] [phone] 07/02/2024 4:40 PM EDT Office Visit Cardiology at [address] [address] Luis Alfredo Velazquez MD [facility] [place] [address] Scheduled Referrals Name Type Priority Associated Diagnoses Order Schedule Referral to Occupational Therapy Outpatient Referral Routine Inflammatory arthropathy Arthralgia of both hands Ordered: 01/28/2023 documented as of this encounter Results * XR Cervical Spine 2 or 3 Views (01/28/2023 3:51 PM EDT) Anatomical Region Laterality Modality C-spine N/A Digital Radiogra phy Impressions 01/29/2023 7:29 AM EDT Ankylosing spondylitis and diffuse bone demineralization without acute abnormality. No significant radiographic change since 2021. Thank you for letting us participate in the care of this patient. ??If you are a health care provider and have any questions regarding this report, please contact the number below. ??For patients who have questions please contact the health disabilities caregiver that requested your imaging first. ? Electronically signed by: Anusha Ledezma MD, [facility] ([phone]), at 01/29/2023 7:29 AM Narrative 01/29/2023 7:29 AM EDT EXAMINATION: XR CERVICAL SPINE 2 OR 3 VIEWS CLINICAL HISTORY: ankylosing spondy, h/o IBD TECHNIQUE: AP and lateral views of the cervical spine COMPARISON: Radiographs August 24, 2015 and December 13, 2021; MRI March 08, 2022 FINDINGS: The lateral view images from the skull base through the C7-T1 disc space. Bone mineralization is diffusely decreased. No displaced fracture or destructive bone lesion. Thin syndesmophytes bridge the anterior and posterior margins of C2-C4 with ankylosis of the facet joints at the same levels. Slightly more prominent hypertrophy of the anterior arch of C1. Facet joint narrowing with osteophytes and sclerosis is seen at C4-T1. Intervertebral disc heights are preserved. Survey of skull base, maxillofacial structures, prevertebral soft tissues and thoracic inlet is normal. Procedure Note Anusha Ledezma MD - 01/29/2023 EXAMINATION: XR CERVICAL SPINE 2 OR 3 VIEWS CLINICAL HISTORY: ankylosing spondy, h/o IBD TECHNIQUE: AP and lateral views of the cervical spine COMPARISON: Radiographs August 24, 2015 and December 13, 2021; MRI March 08, 2022 FINDINGS: The lateral view images from the skull base through the C7-T1 disc space.Bone mineralization is diffusely decreased. No displaced fracture ordestructive bone lesion. Thin syndesmophytes bridge the anterior and posterior margins of C2-C4with ankylosis of the facet joints at the same levels. Slightly moreprominent hypertrophy of the anterior arch of C1. Facet joint narrowing withosteophytes and sclerosis is seen at C4-T1. Intervertebral disc heights are preserved. Survey of skull base, maxillofacial structures, prevertebral soft tissuesand thoracic inlet is normal. IMPRESSION Ankylosing spondylitis and diffuse bone demineralization without acute abnormality. No significant radiographic change since 2021. Thank you for letting us participate in the care of this patient. If youare a health care provider and have any questions regarding this report,please contact the number below. For patients who have questions please contactthe health disabilities caregiver that requested your imaging first. 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 Thank you for letting us participate in the care of this patient. ??If you are a health care provider and have any questions regarding this report, please contact the number below. ??For patients who have questions please contact the health disabilities caregiver that requested your imaging first. ? Electronically signed by: JERALD CHRISTY MD, [facility] ??([phone]), at 01/28/2023 4:20 PM Narrative 01/28/2023 4:20 PM EDT EXAMINATION: XR SACROILIAC JOINTS (GENERIC) CLINICAL HISTORY: ankylosing spondy, ulcerative colitis, looking for progression TECHNIQUE: 3 views of the sacroiliac joints COMPARISON: Pelvis/hip MRI 02/04/2022, pelvis and left hip radiographs 11/21/2021 FINDINGS: Ankylosis of the bilateral sacroiliac joints, present on prior MRI of 2021. No fracture. Pubic symphysis is congruent with mild subchondral sclerosis and small osteophytes. Incompletely imaged left hip prosthesis. Small osteophytes at the right hip joint consistent with osteoarthritis. Procedure Note Jerald Christy MD - 01/28/2023 EXAMINATION: XR SACROILIAC JOINTS (GENERIC) CLINICAL HISTORY: ankylosing spondy, ulcerative colitis, looking forprogression TECHNIQUE: 3 views of the sacroiliac joints COMPARISON: Pelvis/hip MRI 02/04/2022, pelvis and left hip radiographs 11/21/2021 FINDINGS: Ankylosis of the bilateral sacroiliac joints, present on prior MRI [id number]. No fracture. Pubic symphysis is congruent with mild subchondral sclerosis andsmall osteophytes. Incompletely imaged left hip prosthesis. Small osteophytes atthe right hip joint consistent with osteoarthritis. 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 Thank you for letting us participate in the care of this patient. If youare a health care provider and have any questions regarding this report,please contact the number below. For patients who have questions please contactthe health disabilities caregiver that requested your imaging first. Lola Haley DO IM DX ORDERABLES documented in this encounter Visit Diagnoses Diagnosis Ankylosing spondylitis of cervical region Ankylosing spondylitis Ulcerative colitis without complications, unspecified location Primary osteoarthritis of both hips Primary localized osteoarthrosis, pelvic region and thigh Inflammatory arthropathy Arthropathy, unspecified, site unspecified Arthralgia of both hands Inflammatory arthropathy Arthropathy, unspecified, site unspecified Arthralgia of both hands Ankylosing spondylitis of cervical region Ankylosing spondylitis documented in this encounter Care Teams Rate Engineer Relationship Specialty Start Date End Date Marcio Devlin DO [address] [place] [address] PCP - General Family Medicine 11/11/17 documented as of this encounter
--- OUTSIDE RECORDS SUMMARY | 2024-04-08 02:27 | XMS_ITS | Encounter Summary ---
Author Organization Formerly [facility] [place] [address] Care Team Providers Care Agriculture Research Director Name Role Phone Marcio Devlin DO Primary Care Provider [phone] Encounter Details Date Type Department Care Team (Latest Contact Info) Description 02/23/2023 Travel Social History Tobacco Use Types Packs/Day [...] AM EDT Hospital Encounter Non-[place] [address] Arrived 04/29/2024 9:50 AM EDT Appointment MRI at [place] [address] [address] [facility] [place] [address] 04/29/2024 9:50 AM EDT Appointment MRI at [place] [phone] [address] [facility] [place] [address] 06/07/2024 2:30 PM EDT TH Visit (TeleHealth) Gastroenterology at [place] [phone] [facility] [place] [address] 07/02/2024 2:00 PM EDT Appointment Non-[place] [address] [address] [facility] [place] [address] 07/02/2024 4:40 PM EDT Office Visit Cardiology at [address] [address] [facility] [place] [address] documented as of this encounter Visit Diagnoses Not on filedocumented in this encounter Care Teams Agriculture Research Director Relationship Specialty Start Date End Date Marcio Delvin DO [address] [place] [address] PCP - General Family Medicine 11/11/17 documented as of this encounter
--- OUTSIDE RECORDS SUMMARY | 2024-04-08 02:27 | XMS_ITS | Encounter Summary ---
Author Organization [facility] Address [facility] [place] [address] Care Team Providers Care Crab Catcher Name Role Phone Marcio Devlin DO Primary Care Provider [phone] Encounter Details Date Type Department Care Team (Latest Contact Info) Description 10/11/2022 10:00 AM EST TH Visit (TeleHealth) Rheumatology at [facility] [place] [phone] Gabe Fong [place] [address] Ankylosing spondylitis of cervical region; Ulcerative colitis without complications, unspecified location; High risk medication use; Primary osteoarthritis of both hips; 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; Medication monitoring encounter; Mass of joint of left hip; Chronic neck pain; Ankylosing spondylitis, unspecified site of spine Social History Tobacco Use Types Packs/Day Years [...] in a senior care (including now)? No 05/03/2022 Sex and Gender Information Value Date Recorded Sex Assigned at Female 07/21/2021 4:56 PM EDT Gender Identity Female 07/21/2021 4:56 PM EDT Sexual Orientation Straight 07/21/2021 4: 56 PM EDT documented as of this encounter Progress Notes * Gabe Fong MD - 10/11/2022 10:00 AM EST Rheumatology Follow-Up Video Note PCP: Marcio Devlin [...] be limited by underlying Hx of MÉNDEZ. ? #MÉNDEZ: -S/P liver bx in 03/2010 -LFTS [...] reported or known from current medication regimen. Mid back pain improving with PT under the scapula affecting the rhomboids seems to be successful recent colonoscopy has follow-up with Dr. Centeno. Per patient went well ports no increased disease activity. 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 Comments are only made for responses that are changed from previous, not discussed in HPI, or otherwise require clarification. Systemic Comments 1. Generalized pain 2. Fatigue/tiredness 3. Fevers 4. Chills 5. Night sweats 6. Recent weight loss 7. Recent Weight gain Head and neck 8. Headaches 9. Neck pain/stiffness slightly imprved 10. Lymphadenopathy 11. Ocular erythema 12. Xerophthalmia 13. Gritty eyes 14. Eye pain 15. Photophobia 16. Oral sores 17. Xerostomia 18. Jaw claudication Cardiopulmonary 19. Chest discomfort 20. Dyspnea 21. Cough 22. Hemoptysis Gastrointestinal 23. Dysphagia 24. Heartburn 25. Nausea 26. Emesis 27. Abdominal pain 28. Hematochezia 29. Diarrhea 30. Constipation Genitourinary 31. Hematuria 32. Dysuria Musculoskeletal 33. Muscle weakness 34. Myalgia 35. Shoulder pain 36. Raynaud's Neuropsychiatric 37. Paresthesia 38. Dysesthesia 39. Dizziness/vertigo improved 40. Anxiety 41. Depression 42. Cognitive problems 43. Initial insomnia 44. Night awakenings 45. Nonrestorative sleep Dermatologic 46. Xerosis cutis 47. Photosensitivity 48. Rash Patient's medications, allergies, past medical, surgical, social and family histories were reviewedand updated Patient's medications, allergies, past medical, surgical, social and family histories were reviewedand updated as appropriate. Physical Exam: There were no vitals taken for this visit. Imaging: Ostepneia on Dexa IMPRESSION The measurements satisfied the WHO classification for low bone mass or osteopenia. There is no significant change since 2011. Assessment and plan: Kim Funes is a 62 y.o. female PMHx of MÉNDEZ and UC with presenting for follow up who hasbeen maintained on Humira and Sulfasalazine since beginning of 2010 and has been overall been well controlled with known or reported ADRs from medications. Ulcerative colitis related with ankylosing spondylitis- - UC quiet-status post colonoscopy -Ankylosing spondylitis-she is doing better working with PT on rhomboid back pain-MRI of the lumbarSI-and cervical showed no active inflammation -Can consider Remicade Xeljanz or Rinvoq-if patient shows signs of failure again however right now things seem to be going well MID back pain could be posture related and work - reveiwed body mechanics and can consider MRI - aslo re PT for mid back Rhomboid pain - PT and OT wokring mediterranean diet and supplementation as anit inflammatory Elevated CRP and labs from-July repeat labs per GI Chronic neck pain - better Hip Replacement -MRI reassuring hip injections seem to improve symptoms . High risk medication high feng of immun compromise-managed by GI No orders of the defined types were placed in this encounter. Return in about 6 weeks (around 11/22/2022). > 39 minutes total with phone calls and documentation discussing documented in this encounter Plan of Treatment Upcoming Encounters Date Type Department Care Team (Late st Contact Info) Description 04/19/2024 10:00 AM EDT Hospital Encounter Non-[place] [phone] Arrived 04/29/2024 9:50 AM EDT [place] [phone] Luis Alfredo Velazquez MD [facility] [place] [address] 04/29/2024 9:50 AM [place] [address] Luis Alfredo Velazquez MD [facility] [place] [address] 06/07/2024 2:30 PM EDT TH Visit (TeleHealth) Gastroenterology at [address] Dajuan Rachel MD [facility] DR [place] [address] 07/02/2024 2:00 PM EDT Appointment Non-[place] [address] Luis Alfredo Velazquez MD [facility] [place] [address] 07/02/2024 4:40 PM EDT Office Visit Cardiology at [place] [phone] Luis Alfredo Velazquez MD [facility] [place] [address] documented as of this encounter Visit Diagnoses Diagnosis Ankylosing spondylitis, unspecified site of spine Ulcerative colitis without complications, unspecified location High risk medication use Encounter for long-term (current) use of other medications Primary osteoarthritis of both hips Primary localized osteoarthrosis, pelvic region and thigh 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 Medication monitoring encounter Encounter for therapeutic drug monitoring Mass of joint of left hip Chronic neck pain Cervicalgia documented in this encounter Care Teams Crab Catcher Relationship Specialty Start Date End Date Marcio Delvin DO [address] [place] [address] PCP - General Family Medicine 11/11/17 documented as of this encounter
--- OUTSIDE RECORDS SUMMARY | 2024-04-08 02:27 | XMS_ITS | Encounter Summary ---
Author Organization [facility] [place] [address] Care Team Providers Care Border Machine Operator Name Role Phone Marcio Devlin DO Primary Care Provider [phone] Reason for Visit * Reason Comments Specialty Pharmacy Review Ustekinumab (S telara) 90mg/mL Syringe Encounter Details Date Type Department Care Team (Late st Contact Info) Description 01/28/2023 Specialty Pharmacy [place] [address] Alison Ortiz, [facility] Social History Tobacco Use Types Packs/Day [...] slept in a jail (including now)? No 05/03/2022 Sex and Gender Information Value Date Recorded Sex Assigned at Female 07/21/2021 4:56 PM EDT Gender Identity Female 07/21/2021 4:56 PM EDT Sexual Orientation Straight 07/21/2021 4: 56 PM EDT documented as of this encounter Progress Notes * Alison Ortiz - 01/28/2023 11:59 PM EDT The [facility] has completed a benefits investigation for Kim Funes to review their eligibility to fill at [facility]. Per patient's medication list they are prescribed Stelara and the medication is not able to be filled at the [facility]. Kim Funes must fill with Stelara under current insurance plan's mandate. documented in this encounter Plan of Treatment Upcoming Encounters Date Type Department Care Team (Late st Contact Info) Description 04/19/2024 10:00 AM EDT Hospital Encounter Non-Invasive [place] [phone] Arrived 04/29/2024 9:50 AM EDT Appointment [place] [phone] Luis Alfredo Velazquez MD [facility] [place] [address] 04/29/2024 9:50 AM EDT Appointment MRI at [place] [phone] Luis Alfredo Velazquez MD [facility] [place] [address] 06/07/2024 2:30 PM EDT TH Visit (TeleHealth) Gastroenterology at [place] [phone] Dajuan Rachel MD [facility] [place] [address] 07/02/2024 2:00 PM EDT Appointment Non-Invasive Cardiology Lab [place] [phone] Luis Alfredo Velazquez MD [facility] [place] [address] 07/02/2024 4:40 PM EDT Office Visit Cardiology at [address] [address] Luis Alfredo Velazquez MD [facility] [place] [address] documented as of this encounter Visit Diagnoses Not on filedocumented in this encounter Care Teams Border Machine Operator Relationship Specialty Start Date End Date Marcio Devlin DO [address] [place] [id number] PCP - General Family Medicine 11/11/17 documented as of this encounter
--- OUTSIDE RECORDS SUMMARY | 2024-04-08 02:27 | XMS_ITS | Encounter Summary ---
Author Organization [place] [address] Care Team Providers Care Hay Sorter Name Role Phone Marcio Devlin DO Primary Care Provider Reason for Visit * Reason Comments Specialty Pharmacy Review Rinvoq 15mg Encounter Details Date Type Department Care Team (Late st Contact Info) Description 04/28/2023 Specialty [place] [address] Tangela Agarwal, CREDIT CONTROLLER Social History Tobacco Use Types Packs/Day Years [...] slept in a custodial (including now)? No 05/03/2022 Sex and Gender Information Value Date Recorded Sex Assigned at Female 07/21/2021 4:56 PM EDT Gender Identity Female 07/21/2021 4:56 PM EDT Sexual Orientation Straight 07/21/2021 4: 56 PM EDT documented as of this encounter Progress Notes * Tangela Agarwal - 04/28/2023 11:59 PM EDT The [facility] has completed a benefits investigation for Kim Funes to review their eligibility to fill at [facility]. Per patient's medication list they are prescribed Rinvoq and the medication is not able to be filled at the [facility]. At this time insurance mandates this medication must be filled through [facility] documented in this encounter Plan of Treatment Upcoming Encounters Date Type Department Care Team (Late st Contact Info) Description 04/19/2024 10:00 AM EDT Hospital Encounter Non-[place] [phone] Arrived 04/29/2024 9:50 [place] [phone] Lius Alfredo Velazquez MD [facility] [place] [address] 04/29/2024 9:50 AM EDT Appointment MRI at [place] [address] Luis Alfredo Velazquez MD [facility] [place] [address] 06/07/2024 2:30 PM EDT TH Visit (TeleHealth) [place] [address] Dajuan Rachel MD [facility] [place]STRO[place] [address] 07/02/2024 2:00 PM EDT Appointment Non[place] [address] Luis Alfredo Velazquez MD [facility] [place] [address] 07/02/2024 4:40 PM EDT Office Visit Cardiology at [place] [phone] Luis Alfredo Velazquez MD [facility] [place] [address] documented as of this encounter Visit Diagnoses Not on filedocumented in this encounter Care Teams Hay Sorter Relationship Specialty Start Date End Date Marcio Devlin DO [address] [place] [address] PCP - General Family Medicine 11/11/17 documented as of this encounter
--- OUTSIDE RECORDS SUMMARY | 2024-04-08 02:27 | XMS_ITS | Encounter Summary ---
Author Organization [place] [address] Care Team Providers Care Hawk [employer]ile [employer] Name Role Phone Marcio Devlin DO Primary Care Provider [phone] Reason for Visit * Reason Comments Medication Management Encounter Details Date Type Department Care Team (Late st Contact Info) Description 03/17/2023 Specialty [place] [address] Francisca Olivas, [facility] Social History Tobacco Use Types Packs/Day Years [...] slept in a correction (including now)? No 05/03/2022 Sex and Gender Information Value Date Recorded Sex Assigned at Female 07/21/2021 4:56 PM EDT Gender Identity Female 07/21/2021 4:56 PM EDT Sexual Orientation Straight 07/21/2021 4: 56 PM EDT documented as of this encounter Progress Notes * Francisca Olivas [facility] - 03/17/2023 1:58 PM EDT Specialty Pharmacy Initial Consultation; Francisca Olivas [facility] Comprehensive Medication Management (CMM) Kim Stricklandeneuve Diagnosis: Ankylosing Spondylitis and Crohn's Disease Therapy Start Date: TBD- next shot of stelara Contact in person or via telephone: via telephone Is the patient willing to proceed with the Clinical Assessment? Yes Summary and Recommendations: Kim Funes was contacted via telephone for a review of Rinvoq for the treatment of ankylosing spondylitis. Patient is aware of the prior authorization process and timeline and was given [facility] contact information for any questions. Patient was educated on the dosing schedule, 15 mg once daily. Patient was educated on the Rinvoq labeled black box warnings regarding the risk of serious infections including tuberculosis, thrombosis and malignancies. Discussed other precautions with Rinvoq including hypersensitivity, GI perforation, and lipid abnormalities. Patient denied history of diverticulitis or DVT. Patient was educated on the importance of infection prevention including best practices for hand hygiene and the annual flu vaccine. Discussed the need to avoid live vaccines during treatment. Dose hold parameters were reviewed including suspected/known infection, prescribed antibiotic therapy, or scheduled surgery. Patient agrees to contact the clinic to review dose hold in these settings. Patient was made aware that Rinvoq is not recommended during /. Educated patient on the potential side effects of Rinvoq including nausea and infections such as URTI. We are sending her the Rinvoq co-pay card information. Her last Stelara injection was last week (~03/10/23). Clinic follow-up needed: yes - pt needs labs sent to [facility] Patient understands no changes to current drug regimen were made at the appointment and that [facility] isproviding recommendations (summary located at top of note) for provider review and follow up. Francisca Olivas RPH 03/17/23 2:04 PM documented in this encounter Plan of Treatment Upcoming Encounters Date Type Department Care Team (Late st Contact Info) Description 04/19/2024 10:00 AM EDT Hospital Encounter Non-[place] [address] Arrived 04/29/2024 9:50 AM EDT [place] [address] Luis Alfredo Velazquez MD [facility] [place] [address] 04/29/2024 9:50 AM EDT [place] [address] Luis Alfredo Velazquez MD [facility] [place] [address] 06/07/2024 2:30 PM EDT TH Visit (TeleHealth) [place] [address] Dajuan Rachel MD [facility] DR [place] [address] 07/02/2024 2:00 PM EDT Appointment Non[place] [address] Luis Alfredo Velazquez MD [facility] [place] [address] 07/02/2024 4:40 PM EDT Office Visit Cardiology at [address] [address] Luis Alfredo Velazquez MD [facility] [place] [address] documented as of this encounter Visit Diagnoses Not on filedocumented in this encounter Care Teams [employer] Relationship Specialty Start Date End Date Marcio Devlin DO [address] [place] [address] PCP - General Family Medicine 11/11/17 documented as of this encounter
--- OUTSIDE RECORDS SUMMARY | 2024-04-08 02:27 | XMS_ITS | Encounter Summary ---
Author Organization [facility] Address [facility] [place] [address] Care Team Providers Care Log Brander Name Role Phone Marcio Devlin DO Primary Care Provider [phone] Reason for Visit * Reason Comments Medication Refill Encounter Details Date Type Department Care Team (Late st Contact Info) Description 07/07/2023 Refill [place] [address] Jarad Srivastava PA [facility] [address] [place] [address] Social History Tobacco Use Types Packs/Day Years [...] place to sleep or slept in a skilled nursing (including now)? No 05/03/2022 Sex and Gender Information Value Date Recorded Sex Assigned at Female 07/21/2021 4:56 PM EDT Gender Identity Female 07/21/2021 4:56 PM EDT Sexual Orientation Straight 07/21/2021 4: 56 PM EDT documented as of this encounter Plan of Treatment Upcoming Encounters Date Type Department Care Team (Late st Contact Info) Description 04/19/2024 10:00 AM EDT Hospital Encounter Non[place] [phone] Arrived 04/29/2024 9:50 AM EDT [place] [address] Luis Alfredo Velazquez MD [facility] [place] [place] [address] 04/29/2024 9:50 AM EDT [place] [phone] Luis Alfredo Velazquez MD [facility] [place] [place] [address] 06/07/2024 2:30 PM EDT TH Visit (TeleHealth) Gastroenterology at [place] [phone] [address] Dajuan Rachel MD [facility] DR [place] [address] 07/02/2024 2:00 PM EDT Appointment Non[place] [address] Luis Alfredo Velazquez MD [facility] [place] [address] 07/02/2024 4:40 PM EDT Office Visit Cardiology at [address] [phone] Luis Alfredo Velazquez MD [facility] [place] [address] documented as of this encounter Visit Diagnoses Not on filedocumented in this encounter Care Teams Log Brander Relationship Specialty Start Date End Date Marcio Devlin DO [address] [place] [address] PCP - General Family Medicine 11/11/17 documented as of this encounter
--- OUTSIDE RECORDS SUMMARY | 2024-04-08 02:27 | XMS_ITS | Encounter Summary ---
Author Organization [facility] [place] [address] Care Team Providers Care Payment Specialist Name Role Phone Marcio Devlin DO Primary Care Provider [phone] Encounter Details Date Type Department Care Team (Latest Contact Info) Description 07/14/2023 External Results [facility] 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 No 05/03/2022 Sex and Gender Information Value Date Recorded Sex Assigned at Female 07/21/2021 4:56 PM EDT Gender Identity Female 07/21/2021 4:56 PM EDT Sexual Orientation Straight 07/21/2021 4: 56 PM EDT documented as of this encounter Plan of Treatment Upcoming Encounters Date Type Department Care Team (Late st Contact Info) Description 04/19/2024 10:00 AM EDT Hospital Encounter Non-[place] [address] Arrived 04/29/2024 9:50 [place] [address] Luis Alfredo Velazuqez MD [facility] [place] [address] 04/29/2024 9:50 [place] [address] Luis Alfredo Velazquez MD [facility] [place] [address] 06/07/2024 2:30 PM EDT TH Visit (TeleHealth) [place] [address] Dajuan Rachel MD [facility] [place] [address] 07/02/2024 2:00 PM EDT Appointment Non-[place]vasive [place] [address] Luis Alfredo Velazquez MD [facility] [place] [address] 07/02/2024 4:40 PM EDT Office Visit Cardiology at [address] [address] Luis Alfredo Velazquez MD [facility] [place] [address] documented as of this encounter Procedures Procedure Name Priority Date/Time Associated Diagnosis Comments LIPID EXTERNAL LAB PANEL Routine 06/27/2023 2:40 PM EDT CBC WITH DIFF EXTERNAL LAB PANEL Routine 06/27/2023 2:40 PM EDT CRP, ACUTE INFLAMMATION Routine 06/27/2023 2:40 PM EDT MITOCHONDRIAL ANTIBODY, M2 Routine 06/27/2023 2:40 PM EDT TISSUE TRANSGLUTAMINASE, IGA Routine 06/27/2023 2:40 PM EDT SEDIMENTATION RATE Routine 06/27/2023 2: 40 PM EDT Ankylosing spondylitis of cervical region Ulcerative colitis without complications, unspecified location High risk medication use Primary osteoarthritis of both hips 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 Arthralgia of both hands IGA Routine 06/27/2023 2:40 PM EDT HEPATIC FUNCTION PANEL Routine 06/27/2023 2:40 PM EDT documented in this encounter Results * (ABNORMAL) Lipid External Lab Panel (06/27/2023 2:40 PM EDT) Chol, Total 190 EXTERNAL LAB Triglycerides 208(H) EXTERNAL LAB HDL 53 EXTERNAL LAB LDL Cholesterol 96 EXTERNAL LAB 06/27/2023 2:40 PM EDT Gabe Fong MD POINT OF CARE TEST O RDERABLES Performing Organization Address City/[facility] Co de Phone Number EXTERNAL LAB * (ABNORMAL) Hepatic Function Panel (06/27/2023 2:40 PM EDT) Pathologist [facility] Total Protein 8.2 EXTERNAL LAB Albumin 3.6 EXTERNAL LAB Total Bilirubin 0.3 EXTERNAL LAB Alk Phos 135(H) EXTERNAL LAB AST 23 EXTERNAL LAB ALT 26 EXTERNAL LAB Misc Lab Result <0.1 EXTERNAL LAB Comment:Bilirubin, Conjugate d Blood 06/27/2023 2:40 PM EDT Gabe Fong MD CHEMISTRY ORDERABLES Performing Organization Address [facility] de Phone Number EXTERNAL LAB * (ABNORMAL) CRP, acute inflammation (06/27/2023 2:40 PM EDT) Pathologist [facility] CRP 3.10(H) EXTERNAL LAB Blood 06/27/2023 2:40 PM EDT Gabe Fong MD CHEMISTRY ORDERABLES Performing Organization Address [facility] Co de Phone Number EXTERNAL LAB * External CBC Labs (06/27/2023 2:40 PM EDT) WBC 8.65 EXTERNAL LAB RBC 4.61 EXTERNAL LAB Hemoglobin 13.6 EXTERNAL LAB Hematocrit 41.3 EXTERNAL LAB MCV 90.0 EXTERNAL LAB MCH 29.5 EXTERNAL LAB MCHC 32.9 EXTERNAL LAB RDWCV 13.5 EXTERNAL LAB Platelets 229 EXTERNAL LAB MPV 10.6 EXTERNAL LAB Neutrophil Abs 5.46 EXTERNAL LAB Lymphocyte Abs 2.48 EXTERNAL LAB Monocyte Abs 0.60 EXTERNAL LAB Eosinophil Abs 0.05 EXTERNAL LAB Basophil Abs 0.03 EXTERNAL LAB Neutrophil % 63.2 EXTERNAL LAB Lymphocyte % 28.7 EXTERNAL LAB Monocyte % 6.9 EXTERNAL LAB Eosinophil % 0.6 EXTERNAL LAB Basophil % 0.3 EXTERNAL LAB Immature Gran % 0.3 EXTERNAL LAB 06/27/2023 2:40 PM EDT Gabe Fong MD POINT OF CARE TEST O RDERABLES EXTERNAL LAB * Tissue transglutaminase, IgA (06/27/2023 2:40 PM EDT) TTG IgA Ab <1.2 EXTERNAL LAB Blood 06/27/2023 2:40 PM EDT Gabe Fong MD IMMUNOLOGY ORDERABLE S Performing Organization Address [facility] Co de Phone Number EXTERNAL LAB * Mitochondrial Antibody, M2 (06/27/2023 2:40 PM EDT) Mitochon Ab <0.1 EXTERNAL LAB Blood 06/27/2023 2:40 PM EDT Gabe Fong MD IMMUNOLOGY ORDERABLE S Performing Organization Address [facility] de Phone Number EXTERNAL LAB * IgA (06/27/2023 2:40 PM EDT) IgA 496 EXTERNAL LAB Blood 06/27/2023 2:40 PM EDT Gabe Fong MD IMMUNOLOGY ORDERABLE S Performing Organization Address City/[facility]/ZIP Co de Phone Number EXTERNAL LAB * Sedimentation rate (06/27/2023 2:40 PM EDT) Sed Rate 22 EXTERNAL LAB Blood 06/27/2023 2:40 PM EDT Gabe Fong MD HEMATOLOGY ORDERABLE S Performing Organization Address City/[facility]/ZIP Co de Phone Number EXTERNAL LAB documented in this encounter Visit Diagnoses Diagnosis Ankylosing spondylitis of cervical region Ankylosing spondylitis Ulcerative colitis without complications, unspecified location High risk medication use Encounter for long-term (current) use of other medications Primary osteoarthritis of both hips Primary localized osteoarthrosis, pelvic region and thigh 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
--- OUTSIDE RECORDS SUMMARY | 2024-04-08 02:27 | XMS_ITS | Encounter Summary ---
Author Organization [facility] [place] [address] Care Team Providers Care Terrazzo Worker Helper Name Role Phone Marcio Devlin DO Primary Care Provider [phone] Encounter Details Date Type Department Care Team (Late st Contact Info) Description 03/27/2023 [place]phone [place] [address] Sabrina Casarez RN Social History Tobacco Use Types Packs/Day [...] slept in a m[facility]p (including now)? No 05/03/2022 Sex and Gender Information Value Date Recorded Sex Assigned at Female 07/21/2021 4:56 PM EDT Gender Identity Female 07/21/2021 4:56 PM EDT Sexual Orientation Straight 07/21/2021 4: 56 PM EDT documented as of this encounter Miscellaneous Notes * Telephone Encounter - Sabrina Casarez RN - 03/27/2023 12:44 PM EDT TC to the patient, spoke to her directly. Advised the patient to make appt to follow up on medication with her PCP to help to lower Lipids/Cholesterol as noted by Dr Ajit MD. Patient states she has an appointment next week she believes. ----- Message from Gabe Fong MD sent at 03/27/2023 12:16 PM EDT ----- Patient needs to see PCP about lipid lower ing therapy ----- Message ----- From: Balwinder, Revenue Agent Sent: 03/26/2023 3:11 PM EDT To: Gabe Fong MD documented in this encounter Plan of Treatment Upcoming Encounters Date Type Department Care Team (Late st Contact Info) Description 04/19/2024 10:00 AM EDT Hospital Encounter Non-Invasive [place] [address] Arrived 04/29/2024 9:50 AM [place] [address] Luis Alfredo Velazquez MD [facility] [place] [address] 04/29/2024 9:50 AM EDT Appointment MRI at [place] [phone] Luis Alfredo Velazquez MD [facility] [place] [place] [address] 06/07/2024 2:30 PM EDT TH Visit (TeleHealth) Gastroenterology at [place] [address] Dajuan Rachel MD [facility] [place] [address] 07/02/2024 2:00 PM EDT Appointment Non-Invasive Cardiology Lab [address] Luis Alfredo Velazquez MD [facility] [place] [address] 07/02/2024 4:40 PM EDT Office Visit Cardiology at [address] [address] Luis Alfredo Velazquez MD [facility] [place] [address] documented as of this encounter Visit Diagnoses Not on filedocumented in this encounter Care Teams Terrazzo Worker Helper Relationship Specialty Start Date End Date Marcio Devlin DO [address] [place] [address] PCP - General Family Medicine 11/11/17 documented as of this encounter
--- OUTSIDE RECORDS SUMMARY | 2024-04-08 02:27 | XMS_ITS | Encounter Summary ---
Author Organization [facility] [place] [address] Care Team Providers Care Media Intern Name Role Phone Marcio Devlin DO Primary Care Provider [phone] Reason for Visit * Reason Comments Specialty Pharmacy Review Ustekinumab (S telara) 90mg/mL Syringe Encounter Details Date Type Department Care Team (Late st Contact Info) Description 12/02/2022 Specialty [place] [address] Alison Ortiz, [facility] Social History Tobacco Use Types Packs/Day [...] encounter Progress Notes * Alison Ortiz - 12/02/2022 11:59 PM EDT The - Specialty Pharmacy has completed a benefits investigation for Kim Funes to review their eligibility to fill at [facility]. Per patient's medication list they are prescribed Ustekinumab (Stelara) and the medication is not able to be filled at the [facility]. Kim Funes must fill with [facility] under current insurance plan's mandate. documented in this encounter Plan of Treatment Upcoming Encounters Date Type Department Care Team (Late st Contact Info) Description 04/19/2024 10:00 AM EDT Hospital Encounter Non-Invasive [place] [address] Arrived 04/29/2024 9:50 AM [place] [address] Luis Alfredo Velazquez MD [facility] [place] [address] 04/29/2024 9:50 AM EDT Appointment MRI at [address] Luis Alfred[place] Velazquez MD [facility] [place] [address] 06/07/2024 2:30 PM EDT TH Visit (TeleHealth) Gastroenterology at [place] [phone] Dajuan Rachel MD [facility] DR [place] [address] 07/02/2024 2:00 PM EDT Appointment Non-Invasive Cardiology Lab [place] [phone] Luis Alfredo Velazquez MD [facility] [place] [address] 07/02/2024 4:40 PM EDT Office Visit Cardiology at [place] [phone] Luis Alfredo Velazquez MD [facility] [place] [address] documented as of this encounter Visit Diagnoses Not on filedocumented in this encounter Care Teams Media Intern Relationship Specialty Start Date End Date Marcio Devlin DO [address] [place] [address] PCP - General Family Medicine 11/11/17 documented as of this encounter
--- OUTSIDE RECORDS SUMMARY | 2024-04-08 02:27 | XMS_ITS | Encounter Summary ---
Author Organization [facility] [address] Care Team Providers Care Procurement Professional Name Role Phone Marcio Devlin DO Primary Care Provider [phone] Reason for Visit * Reason Comments Specialty Pharmacy Review Upadacitinib ( rinvoq) 15mg tablets Encounter Details Date Type Department Care Team (Late st Contact Info) Description 09/03/2023 Specialty [place] [address] Francisca Olivas, [facility] Social History Tobacco Use Types Packs/Day [...] encounter Progress Notes * Alison Ortiz - 09/03/2023 9:09 AM EST The - Specialty Pharmacy has completed a benefits investigation for Kim Funes to review their eligibility to fill at - Specialty Pharmacy. Per patient's medication list they are prescribed Rinvoq and the patient's eligibility to fill at [facility] is pending further review at this time. documented in this encounter Plan of Treatment Upcoming Encounters Date Type Department Care Team (Late st Contact Info) Description 04/19/2024 10:00 AM EDT Hospital Encounter Non-Invasive [place] [phone] Arrived 04/29/2024 9:50 [place] [phone] [address] [facility] [place] [address] 04/29/2024 9:50 AM EDT Appointment MRI at [place] [address] [address] [facility] [place] [address] 06/07/2024 2:30 PM EDT TH Visit (TeleHealth) [place] [address] [facility] [place] [address] 07/02/2024 2:00 PM EDT Appointment Non-Invasive [place] [address] [address] [facility] [place] [address] 07/02/2024 4:40 PM EDT Office Visit Cardiology at [place] [phone] [address] [facility] [place] [address] documented as of this encounter Visit Diagnoses Not on filedocumented in this encounter Care Teams Procurement Professional Relationship Specialty Start Date End Date Marcio Devlin DO [address] [place] [address] PCP - General Family Medicine 11/11/17 documented as of this encounter
--- OUTSIDE RECORDS SUMMARY | 2024-04-08 02:27 | XMS_ITS | Encounter Summary ---
Author Organization [facility] [place] [address] Care Team Providers Care Inserting Press Operator Name Role Phone Marcio Devlin DO Primary Care Provider [phone] Encounter Details Date Type Department Care Team (Late st Contact Info) Description 10/10/2022 Telephone [place] [address] María Elena Jean, MA Social History Tobacco Use Types Packs/Day Years [...] slept in a prison (including now)? No 05/03/2022 Sex and Gender Information Value Date Recorded Sex Assigned at Female 07/21/2021 4:56 PM EDT Gender Identity Female 07/21/2021 4:56 PM EDT Sexual Orientation Straight 07/21/2021 4: 56 PM EDT documented as of this encounter Miscellaneous Notes * Telephone Encounter - María Elena Jean RMA - 10/10/2022 10:44 AM EST Called patient for pre-charting, no answer. TR TRACI documented in this encounter Plan of Treatment Upcoming Encounters Date Type Department Care Team (Late st Contact Info) Description 04/19/2024 10:00 AM EDT Hospital Encounter [place] [address] Arrived 04/29/2024 9:50 AM EDT Appointment MRI at [place] [phone] Luis Alfredo Velazquez MD [facility] [place] [address] 04/29/2024 9:50 AM EDT [place] [phone] Luis Alfredo Velazquez MD [facility] [place] [address] 06/07/2024 2:30 PM EDT TH Visit (TeleHealth) [place] [address] Dajuan Rachel MD [facility] [place] [address] 07/02/2024 2:00 PM EDT Appointment Non-Invasive [place] [address] Luis Alfredo Velazquez MD [facility] [place] [address] 07/02/2024 4:40 PM EDT Office Visit Cardiology at [address] [address] Luis Alfredo Velazquez MD [facility] [place] [address] documented as of this encounter Visit Diagnoses Not on filedocumented in this encounter Care Teams Inserting Press Operator Relationship Specialty Start Date End Date Marcio eDvlin DO [address] [place] [address] PCP - General Family Medicine 11/11/17 documented as of this encounter
--- OUTSIDE RECORDS SUMMARY | 2024-04-08 02:27 | XMS_ITS | Encounter Summary ---
Author Organization [facility] Address [facility] [place] [address] Care Team Providers Care Shop Director Name Role Phone Marcio Devlin DO Primary Care Provider [phone] Encounter Details Date Type Department Care Team (Latest Contact Info) Description 12/02/2022 9:00 AM EDT TH Visit (TeleHealth) Rheumatology at [facility] [place] [address] Gabe Fong [place] [address] Ankylosing spondylitis of cervical region; Ulcerative colitis [...] slept in a residential (including now)? No 05/03/2022 Sex and Gender Information Value Date Recorded Sex Assigned at Female 07/21/2021 4:56 PM EDT Gender Identity Female 07/21/2021 4:56 PM EDT Sexual Orientation Straight 07/21/2021 4: 56 PM EDT documented as of this encounter Progress Notes * Gabe Fong MD - 12/02/2022 9:00 AM EDT Rheumatology Follow-Up Video Note PCP: Marcio Devlin [...] reported or known from current medication regimen. At last visit she describes worsening hand pain over the past couple weeks worse in the AM with stiffness that takes a few hours to loosen. She still having limited range of motion of the neck which is slightly worse. Her back has been doing better and she is working with physical therapy. Recentlywas seen by gastroenterology who felt that her UC showed minimal signs of inflammation. She previously was tried on sulfasalazine and Humira without benefit. GI has been stable and of Stelara . Discussed multiple options with the possibility of loss of capture of her UC Explained in detail that methotrexate works well for peripheral joint and arthritis most commonly is rheumatoid arthritis but will not help with axial involvement. Discussed imaging of the neck. Imaging of the neck in 2021 did not show progression of ankylosis but did not comment on active inflammation Hand shave been a little more stiff last couple of weeks. Hands worse in the am. Stiffness for a few hours. 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 Headaches 9. Neck pain/stiffness slightly worsened since last visit 10. Lymphadenopathy 11. 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 Paresthesia 38. Dysesthesia 39. Dizziness/vertigo i 40. Anxiety 41. Depression 42. Cognitive problems 43. Initial insomnia 44. Night awakenings 45. Nonrestorative sleep Dermatologic 46. Xerosis cutis 47. Photosensitivity 48. Rash Patient's medications, allergies, past medical, surgical, social and family histories were reviewedand updated Patient's medications, allergies, past medical, surgical, social and family histories were reviewedand updated as appropriate. Physical Exam: There were no vitals taken for this visit. NAD NCAT, nonicteric sclera, no Malar rash Neck Limited range of motion No increased work of breathing AO x3 Hands fmtx-xxspfuix-hflf PIP swelling pointing to the PIPs as the site of her- pain and stiffness. Moving shoulders elbows wrists fingers can make a fist Able to get up out of chair from seated position Imaging: Ostepneia on Dexa IMPRESSION The measurements [...] the lumbarSI-and cervical showed no active inflammation -We discussed consider Remicade Xeljanz or Rinvoq-I -the patient Understands the risk and benefits Range of motion of the neck-limited -slight more stiff has been doing better discussed repeat imaging of the neck to see if progression Hand pain and stiffness at the PIP joint recommend Voltaren gel for now we will get her in for ultrasound discussed adding methotrexate-will not help with axial symptoms -Ultrasound [facility] High risk medication high feng of immun compromise-managed by GI Recommendation would be to see this patient the same day as she is in the ultrasound in the fellow clinic so likely need an appointment with Dr. Armstrong in the fellow with me as well. This drained also the patient while seen in the fellow ultrasound clinic-after seen by Dr. Armstrong of the fellow Orders Placed This Encounter Procedures ??? XR Hand Min 3 views Bilat (Generic) ??? CBC (with Diff) ??? Creatinine ??? Hepatic Function Panel ??? CRP, acute inflammation ??? Sedimentation rate Return in about 4 weeks (around 12/30/2022). > 44 minutes total with phone calls and documentation discussing documented in this encounter Plan of Treatment Upcoming Encounters Date Type Department Care Team (Late st Contact Info) Description 04/19/2024 10:00 AM EDT Hospital Encounter Non-Invasive Cardiology Lab [place] [phone] Arrived 04/29/2024 9:50 AM EDT Appointment MRI at [address] Luis Alfredo Velazquez MD [facility] [place] [address] 04/29/2024 9:50 AM EDT Appointment MRI at [place] [phone] Luis Alfredo Velazquez MD [facility] [place] [address] 06/07/2024 2:30 PM EDT TH Visit (TeleHealth) Gastroenterology at [address] Dajuan Rachel MD [facility] GASTROENTEROLOGY [place] [address] 07/02/2024 2:00 PM EDT Appointment Non-Invasive Cardiology Lab [place] [phone] Luis Alfredo Velazquez MD [facility] [place] [address] 07/02/2024 4:40 PM EDT Office Visit Cardiology at [address] [address] Luis Alfredo Velazquez MD [facility] [place] [address] documented as of this encounter Visit Diagnoses Diagnosis Ankylosing spondylitis of cervical region Ankylosing spondylitis Ulcerative colitis without complications, unspecified location High risk medication use Encounter for long-term (current) use of other medications Primary osteoarthritis of both hips Primary localized osteoarthrosis, pelvic region and thigh 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 Arthralgia of both hands documented in this encounter Care Teams Shop Director Relationship Specialty Start Date End Date Marcio Devlin DO [address] [place] [address] PCP - General Family Medicine 11/11/17 documented as of this encounter
--- OUTSIDE RECORDS SUMMARY | 2024-04-08 02:27 | XMS_ITS | Encounter Summary ---
Author Organization [facility] [place] [address] Care Team Providers Care Home Advisor Name Role Phone Marcio Devlin DO Primary Care Provider [phone] Reason for Visit * Reason Comments Specialty Pharmacy Review Ustekinumab (S telara) 90 mg/mL subcutaneous injection Encounter Details Date Type Department Care Team (Late st Contact Info) Description 10/11/2022 Specialty [place] [address] Alison Ortiz, [facility] Social History Tobacco Use Types Packs/Day Years [...] place to sleep or slept in a fci (including now)? No 05/03/2022 Sex and Gender Information Value Date Recorded Sex Assigned at Female 07/21/2021 4:56 PM EDT Gender Identity Female 07/21/2021 4:56 PM EDT Sexual Orientation Straight 07/21/2021 4: 56 PM EDT documented as of this encounter Progress Notes * Alison Ortiz - 10/11/2022 11:59 PM EST The [facility] has completed a benefits investigation for Kim Funes to review their eligibility to fill at [facility]. Per patient's medication list they are prescribed Ustekinumab (Stelara) and the medication is not able to be filled at the [facility]. Kim Funes must fill with [facility] under current insurance plan's mandate. documented in this encounter Plan of Treatment Upcoming Encounters Date Type Department Care Team (Late st Contact Info) Description 04/19/2024 10:00 AM EDT Hospital Encounter Non-Invasive [place] [address] Arrived 04/29/2024 9:50 AM [place] [address] Luis Alfredo Velazquez MD [facility] [place] [address] 04/29/2024 9:50 AM EDT Appointment MRI at [address]1000 Luis Alfredo Velazquez MD [facility] [place] [address] 06/07/2024 2:30 PM EDT TH Visit (TeleHealth) [place] [address] Dajuan Rachel MD [facility] DR [place]STROENTER[place] [address] 07/02/2024 2:00 PM EDT Appointment Non-Invasive Cardiology Lab [place] [phone] Luis Alfredo Velazquez MD [facility] [place] [address] 07/02/2024 4:40 PM EDT Office Visit Cardiology at [place] [phone] Luis Alfredo Velazquez MD [facility] [place] [address] documented as of this encounter Visit Diagnoses Not on filedocumented in this encounter Care Teams Home Advisor Relationship Specialty Start Date End Date Marcio Devlin DO [address] [place] [address] PCP - General Family Medicine 11/11/17 documented as of this encounter
--- OUTSIDE RECORDS SUMMARY | 2024-04-08 02:27 | XMS_ITS | Encounter Summary ---
Author Organization [facility] Address [facility] [place] [address] Care Team Providers Care Composing Machine Operator Name Role Phone Marcio Devlin DO Primary Care Provider [phone] Encounter Details Date Type Department Care Team (Late st Contact Info) Description 03/10/2023 [place] [address] Dajuan Rachel MD [facility] [place] [address] Social History Tobacco Use Types Packs/Day Years [...] place to sleep or slept in a longterm (including now)? No 05/03/2022 Sex and Gender Information Value Date Recorded Sex Assigned at Female 07/21/2021 4:56 PM EDT Gender Identity Female 07/21/2021 4:56 PM EDT Sexual Orientation Straight 07/21/2021 4: 56 PM EDT documented as of this encounter Plan of Treatment Upcoming Encounters Date Type Department Care Team (Late st Contact Info) Description 04/19/2024 10:00 AM EDT Hospital Encounter Non-Invasive [place] [phone] Arrived 04/29/2024 9:50 [place] [address] Luis Alfredo Velazquez MD [facility] [place] [address] 04/29/2024 9:50 [place] [address] Luis Alfredo Velazquez MD [facility] [place] [address] 06/07/2024 2:30 PM EDT TH Visit (TeleHealth) [place] [phone] Dajuan Rachel MD [facility] DR [place] [address] 07/02/2024 2:00 PM EDT Appointment Non-Invasive [place] [address] Luis Alfredo Velazquez MD [facility] [place] [address] 07/02/2024 4:40 PM EDT Office Visit Cardiology at [address] [address] Luis Alfredo Velazquez MD [facility] [place] [address] documented as of this encounter Visit Diagnoses Not on filedocumented in this encounter Care Teams Composing Machine Operator Relationship Specialty Start Date End Date Marcio Devlin DO [address] [place] [address] PCP - General Family Medicine 11/11/17 documented as of this encounter
--- OUTSIDE RECORDS SUMMARY | 2024-04-08 02:27 | XMS_ITS | Encounter Summary ---
Author Organization [facility] [place] [address] Care Team Providers Care Market Research Specialist Name Role Phone Marcio Devlin DO Primary Care Provider [phone] Encounter Details Date Type Department Care Team (Late st Contact Info) Description 03/25/2023 [place] [address] Francisca Olivas, [facility] Social History Tobacco Use Types Packs/Day Years [...] AM EDT Hospital Encounter Non-Invasive Cardiology Lab [place] [phone] Arrived 04/29/2024 9:50 AM ED[place] [address] Luis Alfredo Velazquez MD [facility] [place] [address] 04/29/2024 9:50 AM EDT Appointment MRI at [place] [phone] Luis Alfredo Velazquez MD [facility] [place] [place] [address] 06/07/2024 2:30 PM EDT TH Visit (TeleHealth) Gastroenterology at [place] [phone] Dajuan Rachel MD [facility] GASTROENTEROLOGY DEPT. [place], [place] [phone] 07/02/2024 2:00 PM EDT Appointment [place] [address] Luis Alfredo Velazquez MD [facility] [place] [address] 07/02/2024 4:40 PM EDT Office Visit Cardiology at [address] [phone] Luis Alfredo Velazquez MD [facility] [place] [address] documented as of this encounter Visit Diagnoses Not on filedocumented in this encounter Care Teams Market Research Specialist Relationship Specialty Start Date End Date Marcio Devlin DO [address] [place] [address] PCP - General Family Medicine 11/11/17 documented as of this encounter
--- OUTSIDE RECORDS SUMMARY | 2024-04-08 02:27 | XMS_ITS | Encounter Summary ---
Author Organization [facility] Address [facility] [place] [address] Care Team Providers Care Grocery Worker Name Role Phone Marcio Devlin DO Primary Care Provider [phone] Encounter Details Date Type Department Care Team (Late st Contact Info) Description 02/05/2023 Orders [place] [address] [facility] [place] [address] Social History Tobacco Use Types Packs/Day Years [...] AM EDT Hospital Encounter Non-[place] [address] Arrived 04/29/2024 9:50 [place] [address] [address] [facility] [place] [address] 04/29/2024 9:50 [place] [address] [facility] [place] [address] 06/07/2024 2:30 PM EDT TH Visit (TeleHealth) [place] [address] [facility] [place] [address] 07/02/2024 2:00 PM EDT Appointment [place] [address] [facility] [place] [address] 07/02/2024 4:40 PM EDT Office Visit Cardiology at [address] [address] [facility] [place] [address] documented as of this encounter Visit Diagnoses Not on filedocumented in this encounter Care Teams Grocery Worker Relationship Specialty Start Date End Date Marcio Devlin DO [address] [place] [address] PCP - General Family Medicine 11/11/17 documented as of this encounter
--- OUTSIDE RECORDS SUMMARY | 2024-04-08 02:27 | XMS_ITS | Encounter Summary ---
Author Organization [facility] [place] [address] Care Team Providers Care Top Printing Press Operator Name Role Phone Marcio Devlin DO Primary Care Provider [phone] Reason for Visit * Reason Comments Prior Authorization Rinvoq 15 mg TB24 Encounter Details Date Type Department Care Team (Late st Contact Info) Description 09/03/2023 Specialty [place] [address] Dennis Solorzano, [facility] Social History Tobacco Use Types Packs/Day [...] as of this encounter Progress Notes * Dennis Solorzano, [facility] - 09/03/2023 10:17 AM EST [facility], Medication Prior Authorization Submission Patient: Kim Funes Patient : 1960 Patient Address: [address] [place] [phone] (home) Medication Name: RINVOQ 15 MG TABLET,EXTENDED RELEASE Medication ID: [id number] Subscriber Insurance: [employer] ([facility]) Subscriber Insurance Comment: Fax: Physician: NOEL ADEN Physician Comment: Sent Via: Telephone Truong: Ref/Harmeet/YURIY#: [id number] Medication Strength Frequency Requested: Rinvoq 15 mg TB24 Take One Tablet By Mouth Once Daily Qty/Day Supply: New Start: Renewal Diagnosis & ICD-10 Code: Ankylosing Spondylitis M45.2 Patient Notified: No Submission Notes: - Reauthorization Dennis Solorzano CPHT 09/03/23 10:18 AM * Mai Martinez - 09/03/2023 10:17 AM EST [facility], Prior Authorization Approval Medication Name: RINVOQ 15 MG TABLET,EXTENDED RELEASE Medication ID: [id number] Approval Dates: 10/08/2023 to 10/07/2024 Insurance requirements/notes: None Other Notes: None Case/Reference #: [id number] Approval notification Received via: Fax Copay: N/A Copay assistance: None Copay Notes: Insurance mandated Pharmacy: [facility] Fillable at [facility]: No Patient Notified: Left Voicemessage Pharmacy staff will be reaching out to the patient to inform them of their [facility]. If applicable, a pharmacist will speak with the patient to offer our specialty pharmacy services and to arrange delivery of their medication. Mai Martinez 10/08/23 8:54 AM documented in this encounter Plan of Treatment Upcoming Encounters Date Type Department Care Team (Late st Contact Info) Description 04/19/2024 10:00 AM EDT Hospital Encounter Non-Invasive [place] [address] Arrived 04/29/2024 9:50 AM ED[place] [address] Luis Alfredo Velazquez MD [facility] [address] [place] [phone] 04/29/2024 9:50 AM ED[place] [address] Luis Alfredo Velazquez MD [facility] [place] [address] 06/07/2024 2:30 PM EDT TH Visit (TeleHealth) [place] [address] Dajuan Rachel MD [facility] DR GASTROENTEROLOGY DEPT. [place], [place] [phone] 07/02/2024 2:00 PM EDT Appointment Non-Invasive [place] [address] Luis Alfredo Velazquez MD [facility] [place] [address] 07/02/2024 4:40 PM EDT Office Visit Cardiology at [address] [phone] Luis Alfredo Velazquez MD [facility] [place] [address] documented as of this encounter Visit Diagnoses Not on filedocumented in this encounter Care Teams Top Printing Press Operator Relationship Specialty Start Date End Date Marcio Devlin DO [address] [place] [address] PCP - General Family Medicine 11/11/17 documented as of this encounter
--- OUTSIDE RECORDS SUMMARY | 2024-04-08 02:27 | XMS_ITS | Encounter Summary ---
Author Organization [facility] [place] [address] Care Team Providers Care Geologic Technician Name Role Phone Marcio Devlin DO Primary Care Provider [phone] Reason for Visit * Reason Comments Specialty Pharmacy Review Upadacitinib ( Rinvoq) 15mg Tablet Encounter Details Date Type Department Care Team (Late st Contact Info) Description 07/07/2023 Specialty [place] [address] Alison Ortiz, [facility] Social History Tobacco Use Types Packs/Day [...] [place] [facility] (including now)? No 05/03/2022 Sex and Gender Information Value Date Recorded Sex Assigned at Female 07/21/2021 4:56 PM EDT Gender Identity Female 07/21/2021 4:56 PM EDT Sexual Orientation Straight 07/21/2021 4: 56 PM EDT documented as of this encounter Progress Notes * Alison Ortiz - 07/07/2023 3:49 PM EDT The - Specialty Pharmacy has completed a benefits investigation for Kim Funes to review their eligibility to fill at [facility]. Per patient's medication list they are prescribed Rinvoq and the medication is not able to be filled at the [facility]. At this time insurance mandates this medication must be filled through [facility]. documented in this encounter Plan of Treatment Upcoming Encounters Date Type Department Care Team (Late st Contact Info) Description 04/19/2024 10:00 AM EDT Hospital Encounter Non-[place] [address] Arrived 04/29/2024 9:50 AM [place] [address] Luis Alfredo Velazquez MD [facility] [place] [address] 04/29/2024 9:50 AM EDT Appointment MRI at [place] [address] Luis Alfredo Velazquez MD [facility] [place] [address] 06/07/2024 2:30 PM EDT TH Visit (TeleHealth) Gastroenterology at [address]1000 Dajuan Rachel MD [facility] [place] [address] 07/02/2024 2:00 PM EDT Appointment Non-Invasive Cardiology Lab [address]1000 Luis Alfredo Velazquez MD [facility] [place] [address] 07/02/2024 4:40 PM EDT [place] [address] Luis Alfredo Velazquez MD [facility] [place] [address] documented as of this encounter Visit Diagnoses Not on filedocumented in this encounter Care Teams Geologic Technician Relationship Specialty Start Date End Date Marcio Devlin DO [address] [place] [address] PCP - General Family Medicine 11/11/17 documented as of this encounter
--- OUTSIDE RECORDS SUMMARY | 2024-04-08 02:27 | XMS_ITS | Encounter Summary ---
Author Organization [facility] [place] [address] Care Team Providers Care Special Duty Nurse Name Role Phone Marcio Devlin DO Primary Care Provider [phone] Encounter Details Date Type Department Care Team (Latest Contact Info) Description 02/25/2023 Travel Social History Tobacco Use Types Packs/Day [...] place to sleep or slept in a fdc (including now)? No 05/03/2022 Sex and Gender Information Value Date Recorded Sex Assigned at Female 07/21/2021 4:56 PM EDT Gender Identity Female 07/21/2021 4:56 PM EDT Sexual Orientation Straight 07/21/2021 4: 56 PM EDT documented as of this encounter Plan of Treatment Upcoming Encounters Date Type Department Care Team (Late st Contact Info) Description 04/19/2024 10:00 AM EDT Hospital Encounter [place] [address] Arrived 04/29/2024 9:50 AM EDT Appointment MRI at [place] [address] Luis Alfredo Velazquez MD [facility] [place] [address] 04/29/2024 9:50 AM EDT Appointment MRI at [place] [phone] Luis Alfredo Velazquez MD [facility] [place] [address] 06/07/2024 2:30 PM EDT TH Visit (TeleHealth) Gastroenterology at [place] [phone] Dajuan Rachel MD [facility] GASTROENTEROLOG[place] [address] 07/02/2024 2:00 PM EDT Appointment [place] [address] Luis Alfredo Velazquez MD [facility] [place] [address] 07/02/2024 4:40 PM EDT Office Visit Cardiology at [address] [address] Luis Alfredo Velazquez MD [facility] [place] [address] documented as of this encounter Visit Diagnoses Not on filedocumented in this encounter Care Teams Special Duty Nurse Relationship Specialty Start Date End Date Marcio Devlin DO [address] [place] [address] PCP - General Family Medicine 11/11/17 documented as of this encounter
--- OUTSIDE RECORDS SUMMARY | 2024-04-08 02:27 | XMS_ITS | Encounter Summary ---
Author Organization [facility] [place] [address] Care Team Providers Care Mold Shifter Name Role Phone Marcio Devlin DO Primary Care Provider [phone] Encounter Details Date Type Department Care Team (Latest Contact Info) Description 03/05/2023 Travel Social History Tobacco Use Types Packs/Day [...] AM EDT Hospital Encounter Non[place] [address] Arrived 04/29/2024 9:50 AM EDT Appointment MRI at [place] [address] Luis Alfredo Velazquez MD [facility] [place] [address] 04/29/2024 9:50 AM EDT Appointment MRI at [place] [phone] Luis Alfredo Velazquez MD [facility] [place] [address] 06/07/2024 2:30 PM EDT TH Visit (TeleHealth) Gastroenterology at [place] [phone] Dajuan Rachel MD [facility] [place] [address] 07/02/2024 2:00 PM EDT Appointment [place] [address] Luis Alfredo Velazquez MD [facility] [place] [address] 07/02/2024 4:40 PM EDT Office Visit Cardiology at [address] [address] Luis Alfredo Velazquez MD [facility] [place] [address] documented as of this encounter Visit Diagnoses Not on filedocumented in this encounter Care Teams Mold Shifter Relationship Specialty Start Date End Date Marcio Devlin DO [address] [place] [address] PCP - General Family Medicine 11/11/17 documented as of this encounter
--- OUTSIDE RECORDS SUMMARY | 2024-04-08 02:27 | XMS_ITS | Encounter Summary ---
Author Organization [facility] Address [facility] [place] [address] Care Team Providers Care Mate Relief Name Role Phone Marcio Devlin DO Primary Care Provider [phone] Encounter Details Date Type Department Care Team (Late st Contact Info) Description 03/13/2023 Refill Rheumatology at [facility] [place] [address] Gabe Fong MD [facility] [place] [address] Social History Tobacco Use Types Packs/Day Years [...] AM EDT Hospital Encounter Non-Invasive Cardiology Lab [address] Arrived 04/29/2024 9:50 AM EDT Appointment MRI at [place] [phone] Luis Alfredo Velazquez MD [facility] [place] [address] 04/29/2024 9:50 AM EDT [place] [phone] Luis Alfredo Velazquez MD [facility] [place] [address] 06/07/2024 2:30 PM EDT TH Visit (TeleHealth) Gastroenterology at [place] [phone] Dajuan Rachel MD [facility] [place] [address] 07/02/2024 2:00 PM EDT Appointment Non-[place] [phone] Luis Alfredo Velazquez MD [facility] [place] [address] 07/02/2024 4:40 PM EDT Office Visit Cardiology at [address] [phone] Luis Alfredo Velazquez MD [facility] [place] [address] documented as of this encounter Visit Diagnoses Not on filedocumented in this encounter Care Teams Mate Relief Relationship Specialty Start Date End Date Marcio Devlin DO [address] [place] [address] PCP - General Family Medicine 11/11/17 documented as of this encounter
--- OUTSIDE RECORDS SUMMARY | 2024-04-08 02:27 | XMS_ITS | Encounter Summary ---
Author Organization [facility] Address [facility] [place] [address] Care Team Providers Care After School Program Assistant Name Role Phone Marcio Devlin DO Primary Care Provider Encounter Details Date Type Department Care Team (Late st Contact Info) Description 01/28/2023 3:18 PM EDT - 01/28/2023 11:59 PM EDT Hospital Encounter XRay at [address] [place] [address] Lola Haley, [facility] [address] Inflammatory arthropathy; Arthralgia of both hands; Ankylosing spondylitis of cervical region Discharge Disposition: Home Social History Tobacco Use [...] Sig Dispensed Refills Start Date End Date fish oil-omega-3 fatty acids 1,000 mg Capsule [...] by mouth daily. SUMAtriptan (IMITREX) 20 mg/actuation Thorp, Non-Aerosol 1 spray as needed. 11/03/2017 metFORMIN [...] mg tablet 1000MG, PO, Once daily 10/15/2010 metoprolol succinate XL (Toprol-XL) 50 mg ER [...] Muscle spasms. 30 tablet 1 05/07/2022 10/22/2023 ustekinumab (Stelara) 90 mg/mL subcutaneous injectionIndications: Ulcerative pancolitis without complication Inject 1 mL subcutaneously Every 8 Weeks. 1 mL 5 02/28/2022 02/17/2023 clindamycin (CLEOCIN T) 1 % LotionIndications:Fol liculitis [...] 02/21/2011 10/07/2023 documented as of this encounter Plan of Treatment Upcoming Encounters Date Type Department Care Team (Late st Contact Info) Description 04/19/2024 10:00 AM EDT Hospital Encounter Non-Invasive [place] [phone] Arrived 04/29/2024 9:50 AM EDT Appointment MRI at [address] Luis Alfredo Velazquez MD [facility] [place] [address] 04/29/2024 9:50 AM EDT Appointment MRI at [place] [phone] Luis Alfredo Velazquez MD [facility] [place] [address] 06/07/2024 2:30 PM EDT TH Visit (TeleHealth) Gastroenterology at [place] [phone] Dajuan Rachel MD [facility] [place] [address] 07/02/2024 2:00 PM EDT Appointment Non-Invasive [place] [phone] Luis Alfredo Velazquez MD [facility] [place] [address] 07/02/2024 4:40 PM EDT Office Visit Cardiology at [address] [address] Luis Alfredo Velazquez MD [facility] [place] [address] documented as of this encounter Procedures Procedure Name Priority Date/Time Associated Diagnosis Comments XR CERVICAL SPINE 2 OR 3 VIEWS Routine 01/28/2023 3:51 PM EDT Ankylosing spondylitis of cervical region XR SACROILIAC JOINTS (GENERIC) Routine 01/28/2023 3:51 PM EDT Inflammatory arthropathy Arthralgia of both hands documented in this encounter Results * XR Cervical Spine [...] who have questions please contact the health director long term care that requested your imaging first. ? Narrative 01/29/2023 7:29 AM EDT EXAMINATION: XR [...] patients who have questions please contactthe health director long term care that requested your imaging first. Lola Haley DO IM DX ORDERABLES * XR Sacroiliac Joints (GENERIC) [...] who have questions please contact the health director long term care that requested your imaging first. ? Narrative 01/28/2023 4:20 PM EDT EXAMINATION: XR [...] bilateral sacroiliac joints, present on prior MRI [id number]. No fracture. Pubic symphysis is congruent with [...] patients who have questions please contactthe health director long term care that requested your imaging first. Lola Haley DO IMG DX ORDERABLES documented in this encounter Visit Diagnoses Diagnosis Inflammatory arthropathy Arthropathy, unspecified, site unspecified Arthralgia of both hands Ankylosing spondylitis of cervical region Ankylosing spondylitis documented in this encounter Care Teams After School Program Assistant Relationship Specialty Start Date End Date Marcio Devlin DO [address] [place] [address] PCP - General Family Medicine 11/11/17 documented as of this encounter
--- OUTSIDE RECORDS SUMMARY | 2024-04-08 02:27 | XMS_ITS | Encounter Summary ---
Author Organization [facility] [place] [address] Care Team Providers Care Power And Recovery Shift Engineer Name Role Phone Marcio Devlin DO Primary Care Provider [phone] Reason for Visit * Reason Comments Prior Authorization Rinvoq 15mg Tablet Encounter Details Date Type Department Care Team (Late st Contact Info) Description 03/14/2023 Specialty [place] [address] Thelma Teran, [facility] Social History Tobacco Use Types Packs/Day [...] as of this encounter Progress Notes * Thelma Teran - 03/14/2023 3:15 PM EDT [facility], Medication Prior Authorization Submission Patient: Kim Funes Patient : 1960 Patient Address: [address] [place] [phone] (home) Medication Name: RINVOQ 15 MG TABLET,EXTENDED RELEASE Medication ID: [id number] Subscriber Insurance: Prizzm ([facility]) Subscriber Insurance Comment: Fax: Physician: NOEL ADEN Physician Comment: Sent Via: Fax Truong: Ref/Harmeet/YURIY#: EOC ID: [id number] Medication Strength Frequency Requested: Rinvoq 15mg Tablet Take one tablet by mouth daily Qty/Day Supply: New Start: New to Therapy Diagnosis & ICD-10 Code: Ankylosing Spondylitis of Cervical Region M45.2 Patient Notified: Yes Submission Notes: - New Medication Thelma Teran 03/14/23 3:18 PM * Thelma Teran - 03/14/2023 3:15 PM EDT [facility], Prior Authorization Approval Medication Name: RINVOQ 15 MG TABLET,EXTENDED RELEASE Medication ID: [id number] Approval Dates: 03/14/2023 to 09/13/2023 Insurance requirements/notes: - Patient must fill with [facility]. Other Notes: None Case/Reference #: [id number] Approval notification Received via: Fax Copay: Unknown - Patient must fill with outside pharmacy Copay assistance: None Copay Notes: NA Insurance mandated Pharmacy: [facility] at [facility]: No Patient Notified: Left Voicemessage Pharmacy staff will be reaching out to the patient to inform them of their medication[facility]. If applicable, a pharmacist will speak with the patient to offer our specialty pharmacy services and to arrange delivery of their medication. Thelma Teran 03/17/23 10:06 AM documented in this encounter Plan of Treatment Upcoming Encounters Date Type Department Care Team (Late st Contact Info) Description 04/19/2024 10:00 AM EDT Hospital Encounter Non-[place] [address] Arrived 04/29/2024 9:50 [place] [phone] Luis Alfredo Velazquez MD [facility] [place] [address] 04/29/2024 9:50 AM EDT Appointment MRI at [place] [phone] Luis Alfredo Velazquez MD [facility] [place] [place] [address] 06/07/2024 2:30 PM EDT TH Visit (TeleHealth) Gastroenterology at [address] Dajuan Rachel MD [facility] [place] [address] 07/02/2024 2:00 PM EDT Appointment Non-[place] [address] Luis Alfredo Velazquez MD [facility] [place] [address] 07/02/2024 4:40 PM EDT Office Visit Cardiology at [place] [phone] Luis Alfredo Velazquez MD [facility] [place] [place] [address] documented as of this encounter Visit Diagnoses Not on filedocumented in this encounter Care Teams Power And Recovery Shift Engineer Relationship Specialty Start Date End Date Marcio Devlin DO [address] [place] [address] PCP - General Family Medicine 11/11/17 documented as of this encounter
--- OUTSIDE RECORDS SUMMARY | 2024-04-08 02:27 | XMS_ITS | Encounter Summary ---
Author Organization [facility] Address [facility] [place] [address] Care Team Providers Care Facility Maintenance Manager Name Role Phone Marcio Devlin DO Primary Care Provider [phone] Encounter Details Date Type Department Care Team (Latest Contact Info) Description 04/04/2023 10:30 AM EDT TH Visit (TeleHealth) Rheumatology at [facility] [place] [address] Gabe Fong MD [facility] [place] [address] High risk medication use; Medication monitoring encounter; Ulcerative colitis without complications, unspecified location; Ankylosing spondylitis of cervical region; Primary osteoarthritis of both hips Social History Tobacco Use Types Packs/Day Years [...] Progress Notes * Gabe Fong MD - 04/04/2023 10:30 AM EDT Rheumatology Follow-Up Video Note PCP: [...] known from current medication regimen. She is to get her Rinvoq. She is do for her stelara in May 02 So she nusrat start rinvoq on the She otherwise has had no issues with UC No progression No swollen red or warm joints Rheumatic history (x) means positive Iritis Dactylitis [...] NCAT, nonicteric sclera, no Malar rash Neck full range of motion No increased work of breathing AO x3 Hands well-perfused Moving shoulders elbows wrists fingers can make a fist Able to get up out of chair from seated position Spine, shoulders, elbows, wrists, fingers, hips, knees [...] to start 05/02/23 and stop stelara - Dual therapy-have tumor necrosis factor-inhibitor - Entyvio - -the patient Understands the risk and benefits and black box warning advised to discuss elevated triglycerides with PCP prior to starting Neck pain secondary toAS High risk medication high feng of immun [...] seen by Dr. Armstrong of the fellow No orders of the defined types were placed in this encounter. Return in about 8 weeks (around 05/30/2023). > 35 minutes total with phone calls and documentation discussing documented in this encounter Plan of Treatment Upcoming Encounters Date Type Department Care Team (Late st Contact Info) Description 04/19/2024 10:00 AM EDT Hospital Encounter [place] [address] Arrived 04/29/2024 9:50 AM EDT [place] [address] Luis Alfredo Velazquez MD [facility] [place] [address] 04/29/2024 9:50 AM EDT [place] [address] Luis Alfredo Velazquez MD [facility] [place] [address] 06/07/2024 2:30 PM EDT TH Visit (TeleHealth) [place] [phone] Dajuan Rachel MD [facility] [place] [address] 07/02/2024 2:00 PM EDT Appointment Non-Invasive Cardiology Lab [place] [phone] Luis Alfredo Velazquez MD [facility] [place] [address] 07/02/2024 4:40 PM EDT Office Visit Cardiology at [address] [phone] Luis Alfredo Velazquez MD [facility] [place] [address] documented as of this encounter Visit Diagnoses Diagnosis High risk medication use Encounter for long-term (current) use of other medications Medication monitoring encounter Encounter for therapeutic drug monitoring Ulcerative colitis without complications, unspecified location Ankylosing spondylitis of cervical region Ankylosing spondylitis Primary osteoarthritis of both hips Primary localized osteoarthrosis, pelvic region and thigh documented in this encounter Care Teams Facility Maintenance Manager Relationship Specialty Start Date End Date Marcio Devlin DO [address] [place] [address] PCP - General Family Medicine 11/11/17 documented as of this encounter
--- OUTSIDE RECORDS SUMMARY | 2024-04-08 02:27 | XMS_ITS | Encounter Summary ---
Author Organization [facility] [place] [address] Care Team Providers Care Reinforcing Bar Setter Name Role Phone Marcio Devlin DO Primary Care Provider [phone] Reason for Visit * Occupational Therapy (Routine) - Closed Specialty Diagnoses / Procedures Referred By Missy escalera Referred To Contact Occupational Therapy Diagnoses Inflammatory arthropathy Arthralgia of both hands Camila Alex MD [facility] [place] [address] [facility] [address] [place] [address] Referral ID Status Reason Start Date Expiration Date V isits Requested Visits Authorized [id number] Closed Evaluate and Treat 01/28/2023 01/28/2024 100 100 Encounter Details Date Type Department Care Team (Late st Contact Info) Description 02/25/2023 8:30 AM EDT Office Visit Occupational Therapy at [facility] [address] [place] [address] Sowmya Delatorre, OT Inflammatory arthropathy Social History Tobacco Use Types [...] place to sleep or slept in a chcf (including now)? No 05/03/2022 Sex and Gender Information Value Date Recorded Sex Assigned at Female 07/21/2021 4:56 PM EDT Gender Identity Female 07/21/2021 4:56 PM EDT Sexual Orientation Straight 07/21/2021 4: 56 PM EDT documented as of this encounter Miscellaneous Notes * Initial Evaluation - Sowmya Delatorre, OT - 02/25/2023 8:30 AM EDT OCCUPATIONAL THERAPY INITIAL UPPER EXTREMITY EVALUATION Certification Period: 02/25/23 - 05/23/23 Referral Source: Dr. Camila Mckeon MD Follow-up: 03/06/23 (Rheumatology) Total Treatment time: 45 Minutes Timed Code Treatment Time: 0 minutes OCCUPATIONAL PROFILE: Kim Funes is a 62 y.o. year old Right hand dominant female who has worsening stiffness and pain in her bilateral hands, no precipitating injury of note. Kmi Funes is referred to Occupational Therapy for evaluation and treatment. Patient presents today alone. Kim Funes is followed by rheumatology. Date of onset of symptoms: Chronic, worsening Pertinent History and/or Co-morbidities: 1. 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 Global Mental Function: With gross screening of patient???s global mental functions, patient demonstrates orientation to person, place, time, and situation. Patient???s affect/behavior is appropriateand cooperative today. Patient Specific Functional Scale (PSFS) (unable to perform 0/10 - Able to perform without difficulty 10/10) Activity At Evaluation 1.) Opening containers 5 2.) Decorating cakes 6 3.) Self care 8 4.) Kayking 7 Average Score: 6.5 Disabilities of the Arm, Shoulder, and Hand (DASH): 02/23/2023 10:00 PM THE DISABILITIES OF THE ARM,SHOULDER AND HAND SCORE (DASH) 1. Open a tight or new jar Moderate Difficulty 2. Write Mild difficulty 3. Turn a truong Mild difficulty 4. Prepare a meal Mild difficulty 5. Push open a heavy door Mild difficulty 6. Place an object on a shelf above your head Mild difficulty 7. Do heavy stencil sprayer (eg wash baez, wash floors) Mild difficulty 8. Garden or do yard work Mild difficulty 9. Make a bed Mild difficulty 10. Carry a shopping bag or briefcase Mild difficulty 11. Carry a heavy object (over 10 lbs) Mild difficulty 12. Change a lightbulb overhead Moderate difficulty 13. Wash or blow dry your hair Mild difficulty 14. Wash your back Mild difficulty 15. Put on a pullover sweater No difficulty 16. Use a knife to cut food Mild difficulty 17. Recreational activities which require little effort (eg cardplaying, knitting, etc) Mild difficulty 18. Recreational activities in which you take some force or impact through your arm, shoulder or hand (eg golf, hammering, tennis, etc) Mild difficulty 19. Recreational activities in which you move your arm freely (eg playing frisbee, CUPSton, etc) Mild difficulty 20. Manage transportation needs (getting from one place to another) No difficulty 21. Sexual activities No difficulty 22. During the past week, to what extent has your arm, shoulder or hand problem interfered with your normal social activities with family, friends, neighbours or groups? Slightly 23. During the past week, were you limited in your work or other regular daily activities as a result of your arm, shoulder or hand problem? Slightly limited 24. Arm, shoulder or hand pain Mild 25. Arm, shoulder or hand pain when you performed any specific activity Mild 26. Tingling (pins and needles) in your arm, shoulder or hand None 27. Weakness in your arm, shoulder or hand None 28. Stiffness in your arm, shoulder or hand Moderate 29. During the past week, how much difficulty have you had sleeping because of the pain in your arm, shoulder or hand? No difficulty 30. I feel less capable, less confident or less useful because of my arm, shoulder or hand problem Disagree 1. Work Technique Mild Difficulty 2. Usual Work Mild Difficulty 3. Work As Well Mild Difficulty 4. Spending your usual amount of time doing your work Mild Difficulty Sports/Performing Arts No DASH Score 22.5 DASH - Work Score 25 Standardized measurement of functional limitation related to an upper extremity disability, using 0-100 scale indicating percent of perceived functional impairment. Pain: (Assessed using the visual analog pain scale) At Rest: 2/10 With Activity: 2/10 They just ache all day Active Range of Motion: Measured in degrees of active motion with goniometer Right Left Wrist Extension/Flexion 67/70 70/70 Ulnar/Radial Deviation 18/10 15/10 Pronation/Supination 80/85 80/80 Composite Extension/Flexion 65/25 60/35 Measured in degrees of active motion with goniometer and/or distance measured from finger tip to the distal palmar crease (DPC) Digits Right: MP PIP DIP DPC Thumb 47 80 - DPC Index Finger 0/90 0/107 0/60 5mm Middle Finger 0/92 0/111 0/62 7mm Ring Finger 0/93 0/112 0/64 5mm Small Finger 0/72 -20/82 0/50 10mm Digits Left: MP PIP DIP DPC Thumb 45 70 - DPC Index Finger 0/90 0/110 0/61 DPC Middle Finger 0/93 0/107 0/65 DPC Ring Finger 0/85 0/106 0/72 DPC Small Finger 0/90 0/86 0/60 DPC Strength: Cannery Tender Engineer Testing with Dynamometer setting #2 Pinch Testing with Pinch Gauge Right Left Cannery Tender Engineer setting 2 44.9, 39.5, 49.4 47.3, 44.2, 48.7 Cannery Tender Engineer Average 44.6 46.7 Truong 14 14 3 Pt 14 10 Tip 14 10 Treatment Today: Evaluation MODERATE Complexity (67861) Educated patient in etiology and biomechanics as related to the patient's symptoms, particularly asit relates to joint protection, energy conservation. Provided with home exercise program to include gentle AROM stretching, see scanned documents Issued bilateral full-finger compression gloves (size SM) for nocturnal/post- work use Discussed relative benefits of fingertip-free compression gloves for activity Recommended Kim Funes use her home paraffin unit 3x/week initially, then taper as able to promote good circulation and relief of symptoms. CLINICAL DECISION MAKING: Kim Funes has bilateral OA in her hands causing functional deficits in ADL/IADL performance. Please see above, PSFS and DASH for specific functional deficits. Juliana Funes is able to demonstrate home exercises with written instructions provided. Kim Funes has fair potential for gains with therapy with identified needs for skilled therapy for treatment of deficits noted during evaluation today, to maximize functional performance during daily activities. Short Term Goals (to be met by today): Date Goal Met: Kim Funes will be independent with home exercise program with written instructions. Goal Status: In progress PLAN: follow up PRN (X) Kim Funes participated in the evaluation, collaborated on treatment goals, and agrees to the treatment plan. documented in this encounter Plan of Treatment Upcoming Encounters Date Type Department Care Team (Late st Contact Info) Description 04/19/2024 10:00 AM EDT Hospital Encounter Non-[place] [address] Arrived 04/29/2024 9:50 AM EDT [place] [phone] Luis Alfredo Velazquez MD [facility] [place] [address] 04/29/2024 9:50 AM EDT Appointment MRI at [place] [address] Luis Alfredo Velazquez MD [facility] [place] [address] 06/07/2024 2:30 PM EDT TH Visit (TeleHealth) Gastroenterology at [place] [address] Dajuan Rachel MD [facility] [place] [address] 07/02/2024 2:00 PM EDT Appointment Non-Invasive Cardiology Lab [place] [address] Luis Alfredo Velazquez MD [facility] [place] [address] 07/02/2024 4:40 PM EDT Office Visit Cardiology at [place] [address] Luis Alfredo Vleazquez MD [facility] [place] [address] Scheduled Referrals Name Type Priority Associated Diagnoses Order Schedule Referral to Occupational Therapy Outpatient Referral Routine Inflammatory arthropathy Arthralgia of both hands Ordered: 01/28/2023 documented as of this encounter Visit Diagnoses Diagnosis Inflammatory arthropathy Arthropathy, unspecified, site unspecified documented in this encounter Care Teams Reinforcing Bar Setter Relationship Specialty Start Date End Date Marcio Devlin DO [address] [place] [address] PCP - General Family Medicine 11/11/17 documented as of this encounter
--- OUTSIDE RECORDS SUMMARY | 2024-04-08 02:27 | XMS_ITS | Encounter Summary ---
Author Organization [facility] [place] [address] Care Team Providers Care Ammonia Distiller Name Role Phone Marcio Devlin DO Primary Care Provider [phone] Reason for Visit * Reason Comments Medication Refill Encounter Details Date Type Department Care Team (Late st Contact Info) Description 02/17/2023 [place] [address] Dajuan Rachel MD [facility] [place] [address] Ulcerative pancolitis without complication Social History Tobacco Use Types Packs/Day [...] AM EDT Hospital Encounter Non-[place] [address] Arrived 04/29/2024 9:50 AM [place] [phone] Luis Alfredo Velazquez MD [facility] [place] [place] [address] 04/29/2024 9:50 AM [place] [phone] Luis Alfredo Velazquez MD [facility] [place] [address] 06/07/2024 2:30 PM EDT TH Visit (TeleHealth) [place] [address] Dajuan Rachel MD [facility] DR [place] [address] 07/02/2024 2:00 PM EDT Appointment Non[place] [address] Luis Alfredo Velazquez MD [facility] [place] [address] 07/02/2024 4:40 PM EDT Office Visit Cardiology at [address] [address] Luis Alfredo Velazquez MD [facility] [place] [address] documented as of this encounter Visit Diagnoses Diagnosis Ulcerative pancolitis without complication documented in this encounter Care Teams Ammonia Distiller Relationship Specialty Start Date End Date Marcio Devlin DO [address] [place] [address] PCP - General Family Medicine 11/11/17 documented as of this encounter
--- OUTSIDE RECORDS SUMMARY | 2024-04-08 02:27 | XMS_ITS | Encounter Summary ---
Author Organization [facility] [place] [address] Care Team Providers Care Radio Sales Account Executive Name Role Phone Marcio Devlin DO Primary Care Provider [phone] Encounter Details Date Type Department Care Team (Late st Contact Info) Description 03/21/2023 Orders [place] [phone] Sabrina Casarez RN Social History Tobacco Use [...] AM EDT Hospital Encounter Non-Invasive Cardiology Lab [place] [phone] Arrived 04/29/2024 9:50 AM EDT Appointment MRI at [address] Luis Alfredo Velazquez MD [facility] [place] [address] 04/29/2024 9:50 AM EDT Appointment MRI at [place] [phone] Luis Alfredo Velazquez MD [facility] [place] [address] 06/07/2024 2:30 PM EDT TH Visit (TeleHealth) Gastroenterology at [place] [phone] Dajuan Rachel MD [facility] [place] [address] 07/02/2024 2:00 PM EDT Appointment Non[place] [address] Luis Alfredo Velazquez MD [facility] [place] [address] 07/02/2024 4:40 PM EDT Office Visit Cardiology at [address] [phone] Luis Alfredo Velazquez MD [facility] [place] [address] documented as of this encounter Visit Diagnoses Not on filedocumented in this encounter Care Teams Radio Sales Account Executive Relationship Specialty Start Date End Date Marcio Devlin DO [address] [place], [place] [address] [address] PCP - General Family Medicine 11/11/17 documented as of this encounter
--- OUTSIDE RECORDS SUMMARY | 2024-04-08 02:27 | XMS_ITS | Encounter Summary ---
Author Organization [facility] [place] [address] Care Team Providers Care Federal Appellate Clerk Name Role Phone Marcio Devlin DO Primary Care Provider [phone] Encounter Details Date Type Department Care Team (Latest Contact Info) Description 04/28/2023 4:00 PM EDT TH Visit (TeleHealth) [place] [phone] Dajuan Rachel MD [facility] GASTROENTEROLOGY [place] [address] Ulcerative pancolitis with complication Social History Tobacco [...] slept in a snf (including now)? No 05/03/2022 Sex and Gender Information Value Date Recorded Sex Assigned at Female 07/21/2021 4:56 PM EDT Gender Identity Female 07/21/2021 4:56 PM EDT Sexual Orientation Straight 07/21/2021 4: 56 PM EDT documented as of this encounter Patient Instructions * Patient Instructions* Dajuan Rachel MD - 04/28/2023 4:00 PM EDT 1. Stop the Stelara and start Rinvoq, as directed by Dr. Fong's office 2. Please have routine labs checked at [facility] every 2 weeks for 2 months after starting Rinvoq. 3. Approximately 8 weeks after starting Rinvoq, please have cholesterol (lipids) checked 4. Plan on repeat colonoscopy in September to make sure that still in remission on Rinvoq 5. Follow-up in the office or via telehealth in 6 months with Delilah Morrow APRN documented in this encounter Progress Notes * Dajuan Rachel MD - 04/28/2023 4:00 PM EDT IBD CENTER ESTABLISHED PATIENT TELEVISIT Patient Active Problem List Diagnosis Prediabetes Presence of left artificial hip [...] disease Colonoscopy 09/19/08 (Dr. Shady Luz at [facility]) for surveillance for dysplasia. Areas of [...] 2020 - severe involvement of L colon, [id number] involvement of transverse and R colon. Worse compared to last exam. SSA at hepatic flexure Adalimumab level (gervais) was 12.7 Switched to Stelara ( 03/21/21, first infusion dose) d/t Lost of response to Humira. Stopped Uceris and sulfasalazine in January 2021. [employer] [employer] 09/2022 - tubular featureless L colon with slightly diminished vascular pattern. Histology withmild colitis in sigmoid and inactive in descending. SSA in hep flex. 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 She feels great from the standpoint of her colitis. No diarrhea, rectal bleeding, abdominal pain, unintentional weight loss. She has been working with Dr. Gabe Fong who has been managing her ankylosing spondylitis. In conversation with me, he feels that the Stelara was not helping her ankylosing spondylitis recommended that we shift our management approach. After some discussion, we decided moving ahead with Alan. He has proposed that up to her and her first doses at the end of this week. 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 Has had a good summer. Got 6 weeks off and just started work again. Please see Qorus questionnaire results below for further details re current symptoms. -[facility] Pre-Visit Questionnaire 04/28/2023 3:48 PM EDT - Incomplete Number One Goal/Concern IBD Qorus Provider Questionnaire Did you and your patient discuss your patient???s number one concern today? primary concern discussed How recently have you assessed for mucosal healing with endoscopy/imaging? more than 6 months and less than 12 months How recently have you assessed for [...] to assess for mucosal healing with endoscopy/imaging? within the next 6 months When do you next plan to assess for mucosal healing with fecal calprotectin? I don???t know at thistime Which medication(s) is your patient currently taking for their IBD? Other specified medication(s): Ustekinumab If your patient has NOT achieved steroid-free mucosal healing, are you making any treatment changestoday? Other specified treatment change(s): Switching to alternative therapy What is your Provider Global Assessment (PGA) for this patient today? Normal Do you believe your patient is at high risk of going to the ED for their IBD within the next month?No Review of systems: 14-point review of systems reviewed and negative except as above. Physical exam: No Physical Examination performed during this telemedicine visit Laboratory studies, imaging, and procedures (my review of prior records): Reviewed labs from [facility] 03/24/23. BMP notable for creatinine of 1.2. Alkaline phosphatase mildly elevated at 127. Complete blood count unremarkable Assessment and Plan: Ms. Funes is a 63 y.o. patient with ulcerative colitis that responded quite nicely to Stelara,but, unfortunately, her ankylosing spondylitis continue to progress. After discussions with Dr. Fong, it was decided to transition to Rinvoq, and we plan on doing that this week. Again reviewed with her the safety profile Rinvoq that is overall quite good. However, she understands that there is an increased risk of major adverse cardiovascular events in 1 trial in patients who are taking a Denny inhibitor (tofacitinib) when compared to those taking anti-TNF. The absolute magnitude of this risk was quite low and still less than 1%, and the risk was almost exclusively limitedto those subjects who had a prior history of cardiovascular disease. While she has risk factors, she has no prior history. Furthermore, it is unclear if this risk applies to Rinvoq as it does to tofacitinib. Recommended every 2-week labs, especially with her history of elevated alkaline phosphatase, for the first 2 months after starting Rinvoq. Plan on repeat colonoscopy in September to make sure that she is maintaining her remission and to follow-up SSA seen on last exam We discussed the following recommendations that were copied to the After Visit Summary: 1. Stop the Stelara and start Rinvoq, as directed by Dr. Fong's office 2. Please have routine labs checked at [facility] every 2 weeks for 2 months after starting Rinvoq. 3. Approximately 8 weeks after starting Rinvoq, please have cholesterol (lipids) checked 4. Plan on repeat colonoscopy in September to make sure that still in remission on Rinvoq 5. Follow-up in the office or via telehealth in 6 months with Delilah Morrow APRN The patient was located in [place] at the time of their visit. TIME SPENT Time spent during encounter with patient including counselin minutes An additional 10 minutes were spent before and after the visit on this same day in preparation for the appointment, ordering tests and/or prescriptions, communicating with referring providers and completing documentation Approximate total time devoted to this single encounter: 20 L. Jose Rachel MD Drywall Stripperdirectory carrier Co-Director, [facility] Section of [place]enter[place] [address] documented in this encounter Plan of Treatment Upcoming Encounters Date Type Department Care Team (Late st Contact Info) Description 04/19/2024 10:00 AM EDT Hospital Encounter Non-[place] [phone] Arrived 04/29/2024 9:50 AM EDT [place] [address] Luis Alfredo Velazquez MD [facility] [place] [address] 04/29/2024 9:50 AM ED[place] [address] Luis Alfredo Velazquez MD [facility] [place] [address] 06/07/2024 2:30 PM EDT TH Visit (TeleHealth) Gastroenterology at [address] Dajuan Rachel MD [facility] DR GASTROENTEROLOGY [place] [address] 07/02/2024 2:00 PM EDT Appointment Non-[place] [address] Luis Alfredo Velazquez MD [facility] [place] [address] 07/02/2024 4:40 PM EDT Office Visit Cardiology at [address] [address] Luis Alfredo Velazquez MD [facility] [place] [address] Scheduled Orders Name Type Priority Associated Diagnoses Orde r Schedule ENDOSCOPY CASE REQUEST: COLONOSCOPY, DIAGNOSTIC (WRVU 3.26) Procedures Routine Ulcerative pancolitis with complication Ordered: 04/28/2023 documented as of this encounter Visit Diagnoses Diagnosis Ulcerative pancolitis with complication documented in this encounter Care Teams Federal Appellate Clerk Relationship Specialty Start Date End Date Marcio Devlin DO [address] [place] [address] PCP - General Family Medicine 11/11/17 documented as of this encounter
--- OUTSIDE RECORDS SUMMARY | 2024-04-08 02:27 | XMS_ITS | Encounter Summary ---
Author Organization [facility] [place] [address] Care Team Providers Care Woodworking Shop Laborer Name Role Phone Marcio Devlin DO Primary Care Provider [phone] Encounter Details Date Type Department Care Team (Latest Contact Info) Description 01/24/2023 Travel Social History Tobacco Use Types Packs/Day [...] AM EDT Hospital Encounter Non-[place] [address] Arrived 04/29/2024 9:50 AM EDT Appointment MRI at [place] [address] Luis Alfredo Velazquez MD [facility] [address] 04/29/2024 9:50 AM EDT Appointment MRI at [place] [phone] Luis Alfredo Velazquez MD [facility] [place] [address] 06/07/2024 2:30 PM EDT TH Visit (TeleHealth) Gastroenterology at [place] [phone] Dajuan Rachel MD [facility] GASTROENTEROLOG[place] [address] 07/02/2024 2:00 PM EDT Appointment Non[place] [address] Luis Alfredo Velazquez MD [facility] [place] [address] 07/02/2024 4:40 PM EDT Office Visit Cardiology at [address] [address] Luis Alfredo Velazquez MD [facility] [place] [address] documented as of this encounter Visit Diagnoses Not on filedocumented in this encounter Care Teams Woodworking Shop Laborer Relationship Specialty Start Date End Date Marcio Devlin DO [address] [place] [address] PCP - General Family Medicine 11/11/17 documented as of this encounter
--- OUTSIDE RECORDS SUMMARY | 2024-04-08 02:27 | XMS_ITS | Encounter Summary ---
Author Organization [facility] [place] [address] Care Team Providers Care Ordnance Truck Installation Supervisor Name Role Phone Marcio Devlin DO Primary Care Provider [phone] Reason for Visit * Reason Onset Date Comments Prior Authorization 09/02/2023 Encounter Details Date Type Department Care Team (Late st Contact Info) Description 09/02/2023 Telephone [place] [address] Alana Recio Prior Authorization Social History Tobacco Use Types Packs/Day Years [...] encounter Miscellaneous Notes * Telephone Encounter - Alana Recio - 09/02/2023 9:19 AM EST Images from the original note were not included. Received PA for Rinvoq. Opened in CM but will archive for pharmacy documented in this encounter Plan of Treatment Upcoming Encounters Date Type Department Care Team (Late st Contact Info) Description 04/19/2024 10:00 AM EDT Hospital Encounter Non-[place] [phone] Arrived 04/29/2024 9:50 AM EDT [place] [phone] Luis Alfredo Velazquez MD [facility] [place] [address] 04/29/2024 9:50 AM [place] [phone] Luis Alfredo Velazquez MD [facility] [place] [address] 06/07/2024 2:30 PM EDT TH Visit (TeleHealth) Gastroenterology at [place] [phone] Dajuan Rachel MD [facility] [place] [address] 07/02/2024 2:00 PM EDT Appointment Non-[place] [phone] Luis Alfredo Velazquez MD [facility] [place] [address] 07/02/2024 4:40 PM EDT Office Visit Cardiology at [address] [phone] Luis Alfredo Velazquez MD [facility] [place] [address] documented as of this encounter Visit Diagnoses Not on filedocumented in this encounter Care Teams Ordnance Truck Installation Supervisor Relationship Specialty Start Date End Date Marcio Devlin DO [address] [place] [id number] PCP - General Family Medicine 11/11/17 documented as of this encounter
--- OUTSIDE RECORDS SUMMARY | 2024-04-08 02:27 | XMS_ITS | Encounter Summary ---
Author Organization [facility] Address [facility] [place] [address] Care Team Providers Care Exhaust Emissions Inspector Name Role Phone Marcio Devlin DO Primary Care Provider [phone] Reason for Visit * Reason Comments Follow-up Encounter Details Date Type Department Care Team (Late st Contact Info) Description 03/06/2023 9:30 AM EDT Office Visit Rheumatology at [facility] [place] [address] Gabe Fong [place] [address] Ulcerative colitis without complications, unspecified location; Ankylosing spondylitis of cervical region; Medication monitoring encounter; High risk medication use Social History Tobacco Use Types Packs/Day Years [...] slept in a detention (including now)? No 05/03/2022 Sex and Gender Information Value Date Recorded Sex Assigned at Female 07/21/2021 4:56 PM EDT Gender Identity Female 07/21/2021 4:56 PM EDT Sexual Orientation Straight 07/21/2021 4: 56 PM EDT documented as of this encounter Last Filed Vital Signs Vital Sign Reading Time Taken Comments Blood Pressure 132/62 03/06/2023 9:17 AM EDT Pulse 60 03/06/2023 9:17 AM EDT Temperature 36.6 ??C (97.9 ??F) 03/06/2023 9:17 AM ED T Respiratory Rate 17 03/06/2023 9:17 AM EDT Oxygen Saturation 99% 03/06/2023 9:17 AM EDT Inhaled Oxygen Concentration - - Weight 76.7 kg (169 lb) 03/06/2023 9:17 AM EDT Height 166.4 cm (5' 5.5) 03/06/2023 9:17 AM EDT Body Mass Index 27.7 03/06/2023 9:17 AM EDT documented in this encounter Progress Notes * Gabe Fong MD - 03/06/2023 9:30 AM EDT Rheumatology Follow-Up Video Note PCP: [...] reported or known from current medication regimen. Most recent evaluation shows worsening cervical and peripheral involvement of UC and ankylosing spondylitis. Previously tried on Humira, sulfasalazine has been stable from a GI standpoint on Stelara ustekinumab. She has not been on Remicade, Cimzia, Simponi , no Entyvio and she has not been on Xeljanz or other Denny inhibitors Hand shave been a little more stiff [...] reviewedand updated as appropriate. Physical Exam: BP 132/62 Pulse 60 Temp 36.6 ??C (97.9 ??F) (Temporal) Resp 17 Ht 166.4 cm (5' 5.5) Wt 76.7 kg (169 lb) SpO2 99% BMI 27.70 kg/m?? General: NAD Neck: Reduced ROM Cardiovascular: [...] angles bilaterally. (-)Radha Shober 13.5 not assessed M Spine, shoulders, elbows, wrists, fingers, hips, knees [...] - UC quiet-status post colonoscopy -Ankylosing spondylitis- has worsened limited ROM in the neck noted synovitis noted in the joints -We discussed consider Remicade, Xeljanz or Rinvoq as monotherapy. - Dual therapy-have tumor necrosis factor-inhibitor - Entyvio - -the patient Understands the risk and benefits Neck pain secondary to a Hand pain -vitals noted on ultrasound High risk medication high feng of immun [...] placed in this encounter. Return in about 4 weeks (around 04/03/2023) for Telehealth. > 35 minutes total with phone calls and documentation discussing documented in this encounter Plan of Treatment Upcoming Encounters Date Type Department Care Team (Late st Contact Info) Description 04/19/2024 10:00 AM EDT Hospital Encounter Non-Invasive Cardiology Lab [place] [phone] Arrived 04/29/2024 9:50 AM EDT Appointment MRI at [place] [phone] Luis Alfredo Velazquez MD [facility] [place] [address] 04/29/2024 9:50 [place] [address] Luis Alfredo Velazquez MD [facility] [place] [address] 06/07/2024 2:30 PM EDT TH Visit (TeleHealth) [place] [phone] Dajuan Rachel MD [facility] [place] [address] 07/02/2024 2:00 PM EDT Appointment Non-Invasive [place] [address] Luis Alfredo Velazquez MD [facility] [place] [address] 07/02/2024 4:40 PM EDT Office Visit Cardiology at [address] [phone] Luis Alfredo Velazquez MD [facility] [place] [address] documented as of this encounter Visit Diagnoses Diagnosis Ulcerative colitis without complications, unspecified location Ankylosing spondylitis of cervical region Ankylosing spondylitis Medication monitoring encounter Encounter for therapeutic drug monitoring High risk medication use Encounter for long-term (current) use of other medications documented in this encounter Care Teams Exhaust Emissions Inspector Relationship Specialty Start Date End Date Marcio Devlin DO [address] [place] [address] PCP - General Family Medicine 11/11/17 documented as of this encounter
--- OUTSIDE RECORDS SUMMARY | 2024-04-08 02:27 | XMS_ITS | Encounter Summary ---
Author Organization [facility] [place] [address] Care Team Providers Care Biology Internship Name Role Phone Marcio Devlin DO Primary Care Provider [phone] Encounter Details Date Type Department Care Team (Latest Contact Info) Description 01/28/2023 Travel Social History Tobacco Use Types Packs/Day [...] AM EDT Hospital Encounter Non-[place] [address] Arrived 04/29/2024 9:50 AM EDT Appointment MRI at [place] [address] Luis Alfredo Velazquez MD [facility] [address] 04/29/2024 9:50 AM EDT Appointment MRI at [place] [phone] Luis Alfredo Velazquez MD [facility] [address] 06/07/2024 2:30 PM EDT TH Visit (TeleHealth) Gastroenterology at [place] [phone] Dajuan Rachel MD [facility] [place] [address] 07/02/2024 2:00 PM EDT Appointment Non-[place]vasive [place] [address] Luis Alfredo Velazquez MD [facility] [address] 07/02/2024 4:40 PM EDT Office Visit Cardiology at [address] [address] Luis Alfredo Velazquez MD [facility] [address] documented as of this encounter Visit Diagnoses Not on filedocumented in this encounter Care Teams Biology Internship Relationship Specialty Start Date End Date Marcio Devlin DO [address] [place] [address] PCP - General Family Medicine 11/11/17 documented as of this encounter
--- OUTSIDE RECORDS SUMMARY | 2024-04-08 02:27 | XMS_ITS | Encounter Summary ---
Author Organization [facility] Address [facility] [place] [address] Care Team Providers Care Annual Giving Director Name Role Phone Marcio Devlin DO Primary Care Provider [phone] Encounter Details Date Type Department Care Team (Late st Contact Info) Description 03/17/2023 Orders Only [place] [address] Jarad Srivastava PA [facility] [address] [place] [address] Medication monitoring encounter Social History Tobacco Use Types Packs/Day [...] AM EDT Hospital Encounter Non-[place] [phone] Arrived 04/29/2024 9:50 AM EDT [place] [phone] Luis Alfredo Velazquez MD [facility] [place] [place] [address] 04/29/2024 9:50 AM EDT [place] [phone] Luis Alfredo Velazquez MD [facility] [place] [address] 06/07/2024 2:30 PM EDT TH Visit (TeleHealth) Gastroenterology at [place] [phone] Dajuan Rachel MD [facility] [place] [address] 07/02/2024 2:00 PM EDT Appointment [place] [address] Luis Alfredo Velazquez MD [facility] [place] [address] 07/02/2024 4:40 PM EDT Office Visit Cardiology at [address] [address] Luis Alfredo Velazquez MD [facility] [place] [address] documented as of this encounter Visit Diagnoses Diagnosis Medication monitoring encounter Encounter for therapeutic drug monitoring documented in this encounter Care Teams Annual Giving Director Relationship Specialty Start Date End Date Marcio Devlin DO [address] [place] [address] PCP - General Family Medicine 11/11/17 documented as of this encounter
--- OUTSIDE RECORDS SUMMARY | 2024-04-08 02:28 | XMS_ITS | Encounter Summary ---
Author Organization [facility] Address [facility] [place] [address] Care Team Providers Care Hog Pusher Name Role Phone Marcio Devlin DO Primary Care Provider [phone] Encounter Details Date Type Department Care Team (Latest Contact Info) Description 05/10/2022 10:30 AM EDT TH Visit (TeleHealth) Rheumatology at [facility] [place] [address] Gabe Fong MD [facility] [place] [address] Ankylosing spondylitis of cervical region; Ulcerative colitis without complications, unspecified location; High risk medication use; Chronic neck pain; Chronic midline low back pain without sciatica; Inflammatory arthropathy; Medication monitoring encounter; Mass of joint of left hip; 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; Primary osteoarthritis of both hips; Osteopenia, unspecified location Social History Tobacco Use Types Packs/Day Years Used Date Smoking Tobacco: Never Smokeless Tobacco: Never Alcohol Use Standard Drinks/Week Comments Yes 0 (1 standard drink = 0.6 oz pur e alcohol) once every couple of months Overall Financial Resource Strain (CARDIA) Answe r [...] Progress Notes * Gabe Fong MD - 05/10/2022 10:30 AM EDT Rheumatology Follow-Up Video Note PCP: Macrio Devlin DO, Rheumatological History: 1. UC associated [...] reported or known from current medication regimen. -Patient doing much better since last visit regards to hips and back she recently saw her orthopedist who felt that it is all musculoskeletal pain she bought a TENS unit and Flexeril. Also discussed possibly doing trigger point injections under ultrasound. Has not yet scheduled follow-up with gastro enterology for repeat colonoscopy for disease activity. We discussed Switching therapy alternative therapy but her ulcerative colitis is under good control. Could consider adding a second therapy that would increase infection risk which patient has concerns over. Overall she seem to be much better then our last visit Rheumatic history (x) means positive Iritis Dactylitis [...] up out of chair from seated position No results found for this or any previous visit (from the past 72 hour(s)). Imaging: Ostepneia on Dexa IMPRESSION The measurements [...] colitis related with ankylosing spondylitis- - UC quite -but discussed getting a repeat Colonscopy with Gi - potnetial back pain-she feels like she is doing better or hip contiues to do better 1 -He would be to try an alternative drug such as Remicade, Xeljanz, or Rinvoq 2 -Other would be to continue Stelara and add Celebrex and see if it exacerbate his her ulcerative colitis 3- If coming off Stelara would be difficult for this patient could potentially add a TNF inhibitor with risks infection profile would recommend Remicade based on discussion with other providers in the clinic though Humira would be an option to take a response from a joint standpoint Chronic neck pain seen by pain started on flexeril - started using a TENS Hip Replacement -MRI reassuring hip injections seem to improve symptoms . High risk medication high feng of immun compromise No orders of the defined types were placed in this encounter. Return in about 6 weeks (around 06/21/2022) for Either In Person or Telehealth. > 42 minutes total with phone calls and documentation discussing documented in this encounter Plan of Treatment Upcoming Encounters Date Type Department Care Team (Late st Contact Info) Description 04/19/2024 10:00 AM EDT Hospital Encounter Non-Invasive Cardiology Lab [place] [phone] Arrived 04/29/2024 9:50 AM EDT Appointment MRI at [address] Luis Alfredo Velazquez MD [facility] [place] [address] 04/29/2024 9:50 AM EDT Appointment MRI at [place] [address] Luis Alfredo Velazquez MD [facility] [place] [address] 06/07/2024 2:30 PM EDT TH Visit (TeleHealth) Gastroenterology at [address] Dajuan Rachel MD [facility] [place] [address] 07/02/2024 2:00 PM EDT Appointment Non-Invasive Cardiology Lab [place] [phone] Luis Alfredo Velazquez MD [facility] [place] [address] 07/02/2024 4:40 PM EDT Office Visit Cardiology at [place] [phone] Luis Alfredo Velazquez MD [facility] [address] [place] [phone] documented as of this encounter Visit Diagnoses Diagnosis Ankylosing spondylitis of cervical region Ankylosing spondylitis Ulcerative colitis without complications, unspecified location High risk medication use Encounter for long-term (current) use of other medications Chronic neck pain Cervicalgia Chronic midline low back pain without sciatica Inflammatory arthropathy Arthropathy, unspecified, site unspecified Medication monitoring encounter Encounter for therapeutic drug monitoring Mass of joint of left hip 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 Primary osteoarthritis of both hips Primary localized osteoarthrosis, pelvic region and thigh Osteopenia, unspecified location documented in this encounter Care Teams Hog Pusher Relationship Specialty Start Date End Date Marcio Devlin DO [address] [place] [address] PCP - General Family Medicine 11/11/17 documented as of this encounter
--- OUTSIDE RECORDS SUMMARY | 2024-04-08 02:28 | XMS_ITS | Encounter Summary ---
Author Organization [facility] [place] [address] Care Team Providers Care Senior Graphic Designer Name Role Phone Marcio Devlin DO Primary Care Provider Reason for Referral * Diagnostic Test (Routine) - Closed Specialty Diagnoses / Procedures Referred By Contac t Referred To Contact Radiology Diagnoses Chronic left hip pain Procedures MRI Hip wo Contrast Left (Generic) MRI Hip wwo Contrast Left MRI Hip wo Contrast Left (Generic) Gabe Fong MD [facility] [place] [address] [facility] Rad Mri [address] [place] [address] Referral ID Status Reason Start Date Expiration Date V isits Requested Visits Authorized [id number] Closed Specialty Service Requested 12/25/2021 06/26/2023 1 1 Reason for Visit * Diagnostic Test (Routine) - Closed Specialty Diagnoses / Procedures Referred By Contac t Referred To Contact Radiology Diagnoses Chronic left hip pain Procedures MRI Hip wo Contrast Left (Generic) MRI Hip wwo Contrast Left MRI Hip wo Contrast Left (Generic) Gabe Fong MD [facility] [place] [address] [facility] Rad Mri [address] [place] [address] Referral ID Status Reason Start Date Expiration Date V isits Requested Visits Authorized [id number] Closed Specialty Service Requested 12/25/2021 06/26/2023 1 1 Encounter Details Date Type Department Care Team (Latest Contact Info) Description 02/04/2022 12:08 PM EDT - 02/04/2022 11:59 PM EDT Hospital Encounter Radiology MRI at [facility] [address] [place] [address] Gabe Fong MD [place] [address] Chronic left hip pain Discharge Disposition: Home Social History Tobacco Use Types Packs/Day Years Used Date Smoking Tobacco: Never Smokeless Tobacco: Never Alcohol Use Standard Drinks/Week Comments Yes 0 (1 standard drink = 0.6 oz pur e alcohol) once every couple of months Sex and Gender Information Value Date Recorded [...] by mouth daily. SUMAtriptan (IMITREX) 20 mg/actuation [place], Non-Aerosol 1 spray as needed. 11/03/2017 metFORMIN [...] mg tablet 1000MG, PO, Once daily 10/15/2010 meclizine (Antivert) 25 mg Tablet TAKE ONE TABLET BY MOUTH TWICE A DAY NEEDED FOR DIZZINESS 01/24/2022 12/02/2022 loratadine (Claritin) 10 mg Tablet Take by mouth. 04/05/2016 10/07/2023 Calcium Carbonate-Vitamin D3 500 mg-10 mcg (400 unit) Tablet Take by mouth 2 times daily. 12/24/2012 10/07/2023 Stelara 90 mg/mL subcutaneous injectionIndications:Ul cerative pancolitis without complication INJECT 1 ML UNDER THE SKIN EVERY 8 WEEKS 1 mL 5 09/04/2021 02/28/2022 clindamycin (CLEOCIN T) 1 % LotionIndications:Folli culitis Apply to affected areas on abdomen twice daily for ten days. 60 mL 07/23/2021 10/22/2023 triamcinolone (Kenalog) 0.1 % CreamIndications:Papula r eczema Apply to affected areas on bilateral [...] AM EDT Hospital Encounter Non-[place] [phone] Arrived 04/29/2024 9:50 AM EDT Appointment MRI at [place] [phone] Luis Alfredo Velazquez MD [facility] [place] [address] 04/29/2024 9:50 AM EDT [place] [address] Luis Alfredo Velazquez MD [facility] [place] [address] 06/07/2024 2:30 PM EDT TH Visit (TeleHealth) Gastroenterology at [place] [phone] Dajuan Rachel MD [facility] DR GASTROENTEROLOGY DEPT. [place], [place] [id number] 07/02/2024 2:00 PM EDT Appointment Non-[place] [address] Luis Alfredo Velazquez MD [facility] [place] [address] 07/02/2024 4:40 PM EDT Office Visit Cardiology at [address] [address] Luis Alfredo Velazquez MD [facility] [place] [address] documented as of this encounter Procedures Procedure Name Priority Date/Time Associated Diagnosis Comments MRI HIP LEFT WO CONTRAST Routine 02/04/2022 1:29 PM EDT Chronic left hip pain documented in this encounter Results * MRI Hip wo Contrast Left (Generic) (02/04/2022 1:29 PM EDT) Anatomical Region Laterality Modality Hip Left Magnetic Resonan ce Impressions 02/04/2022 4:47 PM EDT 1. ??Left total hip arthroplasty without evidence for complication. 2. ??Trace left greater trochanter bursal edema may correspond with symptoms of bursitis in the appropriate clinical setting. 3. ??Mural thickening and intramural fat within the visualized mid and distal sigmoid colon, consistent with patient's history of ulcerative colitis. 4. 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 I have personally reviewed the image(s) and the resident's interpretation and agree with the findings, Anusha Ledezma MD at 02/04/2022 4:47 PM Thank you for letting us participate in the care of this patient. ??If you are a health care provider and have any questions regarding this report, please contact the number below. ??For patients who have questions please contact the health child care education coordinator that requested your imaging first. ? Electronically signed by: Anusha Ledezma MD, [facility] ([phone]), at 02/04/2022 4:47 PM Narrative 02/04/2022 4:47 PM EDT EXAMINATION: MRI HIP WO CONTRAST LEFT (GENERIC) CLINICAL HISTORY: Hip replacement, nerve damage suspected; UC arthritis with hip pain and signicant tedenterness to palpation UC arthritis with hip pain and signicant tedenterness to palpation TECHNIQUE: Noncontrast MRI of the left hip was performed using axial oblique, coronal and sagittal PD FS sequences. Full pelvis [id number] axial T1, coronal T1 and STIR sequences are provided. COMPARISON: Hip radiograph 11/21/2021 FINDINGS: Bone: Intact with normal marrow signal. Left total hip arthroplasty without evidence for hardware complication on MR. There is no osteolysis, marrow edema or extraosseous pseudotumor. Partial ankylosis of the sacroiliac joints without adjacent edema. Cartilage: Limited evaluation on the right T2 large field of view technique. Surgically absent on left. Effusion: None. Bursa: Trace left greater trochanteric bursal fluid. Labrum: Limited evaluation on the right due to large field of view technique. Surgically absent on the left. Tendons: Normal. Muscle: Bulk and signal are normal and symmetric. Neurovascular: Normal course and caliber. Pelvis: Spacing and alignment are preserved at the pubic symphysis. No free fluid, adenopathy, solid or cystic soft tissue mass. There is mural thickening measuring 13mm with mural fat within the visualized mid and distal sigmoid colon. Haustral markings are decreased. Procedure Note Anusha Ledezma MD - 02/04/2022 EXAMINATION: MRI HIP WO CONTRAST LEFT (GENERIC) CLINICAL HISTORY: Hip replacement, nerve damage suspected; UC arthritiswith hip pain and signicant tedenterness to palpation UC arthritis with hip pain and signicant tedenterness to palpation TECHNIQUE: Noncontrast MRI of the left hip was performed using axialoblique, coronal and sagittal PD FS sequences. Full pelvis [id number] axialT1, coronal T1 and STIR sequences are provided. COMPARISON: Hip radiograph 11/21/2021 FINDINGS: Bone: Intact with normal marrow signal. Left total hip arthroplastywithout evidence for hardware complication on MR. There is no osteolysis, marrowedema or extraosseous pseudotumor. Partial ankylosis of the sacroiliac jointswithout adjacent edema. Cartilage: Limited evaluation on the right T2 large field of viewtechnique. Surgically absent on left. Effusion: None. Bursa: Trace left greater trochanteric bursal fluid. Labrum: Limited evaluation on the right due to large field of viewtechnique. Surgically absent on the left. Tendons: Normal. Muscle: Bulk and signal are normal and symmetric. Neurovascular: Normal course and caliber. Pelvis: Spacing and alignment are preserved at the pubic symphysis. Nofree fluid, adenopathy, solid or cystic soft tissue mass. There is muralthickening measuring 13mm with mural fat within the visualized mid and distalsigmoid colon. Haustral markings are decreased. IMPRESSION 1. Left total hip arthroplasty without evidence for complication. 2. Trace left greater trochanter bursal edema may correspond withsymptoms of bursitis in the appropriate clinical setting. 3. Mural thickening and intramural fat within the visualized mid anddistal sigmoid colon, consistent with patient's history of ulcerative colitis. 4. Partial ankylosis of the sacroiliac joints without activeinflammation, likely secondary to history of inflammatory bowel disease associated sacroiliitis. I have personally reviewed the image(s) and the resident's interpretationand agree with the findings, Anusha Ledezma MD at 02/04/2022 4:47 PM Thank you for letting us participate in the care of this patient. If youare a health care provider and have any questions regarding this report,please contact the number below. For patients who have questions please contactthe health child care education coordinator that requested your imaging first. Electronically signed by: Anusha Ledezma MD, [facility]([phone]), at 02/04/2022 4:47 PM Gabe Fong MD IMG MRI ORDERABLES documented in this encounter Visit Diagnoses Diagnosis Chronic left hip pain Pain in joint, pelvic region and thigh documented in this encounter Care Teams Senior Graphic Designer Relationship Specialty Start Date End Date Marcio Devlin DO [address] [place] [address] PCP - General Family Medicine 11/11/17 documented as of this encounter
--- OUTSIDE RECORDS SUMMARY | 2024-04-08 02:28 | XMS_ITS | Encounter Summary ---
Author Organization [facility] [place] [address] Care Team Providers Care Advertising Internship Name Role Phone Marcio Devlin DO Primary Care Provider [phone] Reason for Visit * Reason Comments Specialty Pharmacy Review Ustekinumab (S telara) 90mg/mL Syringe Encounter Details Date Type Department Care Team (Late st Contact Info) Description 05/10/2022 Specialty [place] [address] Alison Ortiz, [facility] Social History Tobacco Use Types Packs/Day [...] encounter Progress Notes * Alison Ortiz - 05/10/2022 11:59 PM EDT The - Specialty Pharmacy has completed a benefits investigation for Kim Funes to review their eligibility to fill at [facility]. Per patient's medication list they are prescribed Ustekinumab (Stelara) and the medication is not able to be filled at the [facility]. Kim Funes must fill with [facility] under current insurance plan's mandate. documented in this encounter Plan of Treatment Upcoming Encounters Date Type Department Care Team (Late st Contact Info) Description 04/19/2024 10:00 AM EDT Hospital Encounter Non[place] [address] Arrived 04/29/2024 9:50 AM [place] [phone] Luis Alfredo Velazquez MD [facility] [place] [address] 04/29/2024 9:50 AM EDT Appointment MRI at [address] Luis Alfredo Velazquez MD [facility] [place] [address] 06/07/2024 2:30 PM EDT TH Visit (TeleHealth) [place] [address] Dajuan Rachel MD [facility] [place] [address] 07/02/2024 2:00 PM EDT Appointment Non-Invasive Cardiology Lab [place] [phone] Luis Alfredo Velazquez MD [facility] [place] [address] 07/02/2024 4:40 PM EDT Office Visit Cardiology at [place] [phone] Luis Alfredo Velazquez MD [facility] [place] [address] documented as of this encounter Visit Diagnoses Not on filedocumented in this encounter Care Teams Advertising Internship Relationship Specialty Start Date End Date Marcio Devlin DO [address] [place] [address] PCP - General Family Medicine 11/11/17 documented as of this encounter
--- OUTSIDE RECORDS SUMMARY | 2024-04-08 02:28 | XMS_ITS | Encounter Summary ---
Author Organization [facility] [place] [address] Care Team Providers Care Tug Master Name Role Phone Marcio Devlin DO Primary Care Provider [phone] Encounter Details Date Type Department Care Team (Latest Contact Info) Description 03/22/2022 1:57 PM EDT - 03/22/2022 11:59 PM EDT Hospital Encounter [place] [address] SOB (shortness of breath) Discharge Disposition: Home Social History Tobacco Use [...] by mouth daily. SUMAtriptan (IMITREX) 20 mg/actuation [place], Non-Aerosol 1 spray as needed. 11/03/2017 metFORMIN [...] by mouth 2 times daily. 12/24/2012 10/07/2023 ustekinumab (Stelara) 90 mg/mL subcutaneous injectionIndications:U lcerative pancolitis without complication Inject 1 mL subcutaneously Every 8 Weeks. 1 mL 5 02/28/2022 02/17/2023 clindamycin (CLEOCIN T) 1 % LotionIndications:Foll iculitis Apply to affected areas on abdomen twice daily for ten days. 60 mL 07/23/2021 10/22/2023 triamcinolone (Kenalog) 0.1 % CreamIndications:Papul ar eczema Apply to affected areas on bilateral [...] AM EDT Hospital Encounter Non-[place] [address] Arrived 04/29/2024 9:50 AM EDT Appointment MRI at [place] [phone] Luis Alfredo Velazquez MD [facility] [place] [address] 04/29/2024 9:50 AM EDT [place] [address] Luis Alfredo Velazquez MD [facility] [place] [address] 06/07/2024 2:30 PM EDT TH Visit (TeleHealth) [place] [address] Dajuan Rachel MD [facility] [place] [address] 07/02/2024 2:00 PM EDT Appointment Non-[place] [phone] Luis Alfredo Velazquez MD [facility] [place] [address] 07/02/2024 4:40 PM EDT Office Visit Cardiology at [address] [place] [address] Luis Alfredo Velazquez MD [facility] [place] [address] documented as of this encounter Procedures Procedure Name Priority Date/Time Associated Diagnosis Comments COMMON PULMONARY FUNCTION TEST Routine 03/22/2022 2:15 PM EDT SOB (shortness of breath) documented in this encounter Results * Pulmonary Function Testing (03/22/2022 2:15 PM EDT) FVC Actual Pre-BD 2.71 L COMPAS PFT FVC Pre-BD % of Predicted 83 % COMPAS PFT FVC Predicted 3.28 L COMPAS PFT FVC Pre-BD Z-Score -1.16 COMPAS PFT FVC Lower Limits of Normal 2.48 L COMPAS PFT FEV1 Actual Pre-BD 2.13 L COMPAS PFT FEV1 Pre-BD % of Predicted 83 % COMPAS PFT FEV1 Predicted 2.57 L COMPAS PFT FEV1 Pre-BD Z-Score -1.15 COMPAS PFT FEV1 Lower Limits of Normal 1.94 L COMPAS PFT FEV1 / FVC Actual Pre-BD 79 % COMPAS PFT FEV1 / FVC LLN 67 % COMPAS PFT [id number] Actual Pre-BD 2.09 L/s COMPAS PFT [id number] Pre-BD % of Predicted 91 % COMPAS PFT [id number] Predicted 2.29 L/s COMPAS PFT [id number] Pre-BD Z-Score -0.25 COMPAS PFT DLCO Hb Actual Pre-BD 18.06 mL/min/mmHg COMPAS PFT DLCO Hb Pre-BD % of Predicted 86 % COMPAS PFT DLCO Hb Pre-BD Z-Score -0.90 COMPAS PFT DLCO Hb Predicted 21.02 mL/min/mmHg COMPAS PFT DLCO UNC ACT PRE-BD 18.06 mL/min/mmHg COMPAS PFT DLCO UNC PRE-BD % of PRED 86 % COMPAS PFT DLCO UNC PRE-BD Z-SCORE -0.90 % COMPAS PFT DLCO [facility]C Predicted 21.02 mL/min/mmHg COMPAS PFT DLCO/VA Actual Pre-BD 4.12 mL/min/mmHg /L COMPAS PFT DLCO/VA Pre-BD % of Predicted 98 % COMPAS PFT DLCO/VA Pre-BD Z-Score -0.16 COMPAS PFT DLCO/VA Predicted 4.22 mL/min/mmHg /L COMPAS PFT Narrative COMPAS PFT - 03/22/2022 2:15 PM EDT FINDINGS: FEV1, FVC, and FEV1/VC are within normal limits. Diffusion capacity is normal. IMPRESSION: Normal spirometry. No diffusion impairment. Procedure Note Unknown - 04/01/2022 FINDINGS: FEV1, FVC, and FEV1/VC are within normal limits. Diffusioncapacity is normal. IMPRESSION: Normal spirometry. No diffusion impairment. Gabe Fong MD PFT ORDERABLES COMPAS PFT documented in this encounter Visit Diagnoses Diagnosis SOB (shortness of breath) Shortness of breath documented in this encounter Care Teams Tug Master Relationship Specialty Start Date End Date Marcio Devlin DO [address] [place] [address] PCP - General Family Medicine 11/11/17 documented as of this encounter
--- OUTSIDE RECORDS SUMMARY | 2024-04-08 02:28 | XMS_ITS | Encounter Summary ---
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 Conversion Name Role Phone Marcio Devlin DO Primary Care Provider [phone] Reason for Visit * Reason Comments Follow-up Encounter Details Date Type Department Care Team (Late st Contact Info) Description 06/11/2022 4:00 PM EDT Office Visit Pain Management at [facility] [address] [place] [address] Jorje Marquez DO [address] [address] Chronic bilateral thoracic back pain; Chronic neck pain; Chronic bilateral low back pain without sciatica; Ankylosing spondylitis of multiple sites in spine Social History Tobacco Use Types Packs/Day [...] Sign Reading Time Taken Comments Blood Pressure 132/71 06/11/2022 4:05 PM EDT Pulse 69 06/11/2022 4:05 PM EDT Temperature - - Respiratory Rate 16 06/11/2022 4:05 PM EDT Oxygen Saturation 99% 06/11/2022 4:05 PM EDT Inhaled Oxygen Concentration - - Weight - - Height - - Body Mass Index - - documented in this encounter Progress Notes * Jorje Marquez DO - 06/11/2022 4:00 PM EDT Pain Clinic Note DOS: 06/11/22 : 1960 Kim Funes is a 62 y.o. year old female with a PMH including ulcerative colitis, ankylosingspondylitis, on Stelara, dyslipidemia, Osteopenia who presents to the pain clinic today at the referral of Marcio Devlin, DO [address] [place] [address] [place] [address] for consultation regarding neck and back pain. CC: Chief Complaint Patient presents with ??? Follow-up Interval history: - overall pt feels noticeably better since prior visit - less pain in the neck and low back - pain at this time is worse under the shoulder blades - pain is worse bent over working - pain at rest 4/10 worse 7/10 - she feels like the TENS unit has been very helpful, she thinks the cyclobenzaprine is also helpful but is a bit sedating - at prior visit we got thoracic and lumbar xrays - she continues to fu with Dr Fong - COLIN and pain description updated below HPI: Kim Funes prefers to be called Kim. Patient has long history of chronic neck and back pain and known underlying ankylosing spondylitis. She reports that her neck and back pain have been under reasonable control and she was on Humira though after switching to Stelara she feels like she had increasing neck and back pain over the past year particularly. Pain in the cervical region localizes to the lower cervical region bilateral without radiation into the upper extremities, she has paindiffusely in the thoracolumbar region particularly from just below her shoulder blades down to the lumbosacral junction. She has quite limited range of motion particularly in her cervical spine, rotation of her neck can aggravate neck pain, lifting can aggravate her back pain. She uses Tylenol arthritis which can be helpful for pain heating pads can also be helpful. She is not able to take NSAIDssecondary to her ulcerative colitis and NSAID allergy. She has been through physical therapy in [facility] for left hip pain but has not had any recent physical therapy for her neck or back. She had noprior spinal surgery or injections. Patient has lost 60 pounds over the past 4 years to diligent diet and lifestyle changes. The patient has been following with Dr. Fong of rheumatology who referredher here for consideration of ultrasound-guided trigger point injections. Pain Description: updated 06/11/22 Onset/Duration - several years, worse since switching to Stelara from Humira about 1 yr ago (humiraseemed to work better for sxs but Stelara seems to better for UC sxs) Location - bilateral lower lateral cervical region, in back pain extends from below the shoulder blades through to iliac crests r>left side Quality - aching in neck, stabbing in back Associated sxs - Weakness - neg Numbness/Tingling - neg Pain score: 4/10 today, 7/10 at worst, /10 at best, /10 on average (all in past week) Aggravating factors: lifting aggravates back pain, prolonged standing, bending over, Alleviating factors: arthritis tylenol, heating pad,TENS unit, flexeril Prior Treatments/Medications (Per prior notes and patient): Medications : Topicals - icy hot NSAIDs - allergic Acetaminophen - tylenol arthritis 2 tab in am and pm Antidepressants - none Antieptileptics - none Muscle Relaxants - has tried in the past but can't remember what they were - flexeril Opioids - none Steroids - none PT: not recently Modalities: heat, TENS Surgery: none Injections: none Chiropractic: none Acupuncture: none Mental Health: none ROS: 06/11/22 Constitutional: No unintentional weight loss or gain, fevers, chills, or night sweats. Lost 60 lbs over past 4 yrs due to lifestyle changes HENT: No recent hearing changes. No difficulty swallowing. Eyes: No recent vision changes. Respiratory: No cough or shortness of breath. Cardiovascular: No chest pain or syncope. GI: No diarrhea, nausea, vomiting, or constipation. : No dysuria, hesitancy, or urgency. No incontinence. Musculoskeletal: No muscle weakness. Skin: No rashes or lesions. Neurologic: No numbness/tingling. No difficulty with balance. Psychiatric: Mood ok. No SI/HI. Sleep is good. Heme/Lymph/Imm: No easy bleeding or brusing. PMH/PSH: Patient Active Problem List Diagnosis Code ??? Ulcerative colitis K51.90 ??? DIFFICULT AIRWAY T88.4XXA ??? MÉNDEZ (nonalcoholic steatohepatitis) K75.81 ??? Lipid disorder E78.9 ??? Ankylosing spondylitis M45.9 ??? Hypertension I10 ??? GERD (gastroesophageal reflux disease) K21.9 ??? Obesity (BMI 30.0-34.9) E66.9 ??? History of migraine headaches Z86.69 ??? Mild asthma J45.909 ??? Type 2 diabetes mellitus without complication, without long-term current use of insulin E11.9 ??? 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 ??? Primary osteoarthritis of right hip M16.11 ??? High risk medication use Z79.899 ??? Inflammatory arthropathy M19.90 ??? Osteopenia since DXA scan in 1995 (T-score -1.7 at the spine) M85.80 ??? Trochanteric bursitis of left hip M70.62 ??? Abnormal blood sugar R73.09 ??? Adalimumab (Humira) long-term use Z79.899 ??? Chronic rhinitis J31.0 ??? Closed fracture of proximal phalanx of little finger S62.618A ??? Disorder of bone and articular cartilage M89.9, M94.9 ??? Hyperlipidemia E78.5 ??? Hypomagnesemia E83.42 ??? 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 Migraine G43.909 ??? Non-alcoholic fatty liver disease K76.0 ??? Otitis externa H60.90 ??? Paresthesia R20.2 ??? Peripheral venous insufficiency I87.2 ??? Prediabetes R73.03 ??? Presence of left artificial hip joint Z96.642 ??? Seborrheic keratoses L82.1 ??? RADHA (stress urinary incontinence, female) N39.3 ??? Urethral caruncle N36.2 Past Medical History: Diagnosis Date ??? Ankylosing spondylitis 02/21/2011 ??? Hypertension ??? Mild asthma 02/24/2018 ??? Type 2 diabetes mellitus without complication, without long-term current use of insulin 02/24/2018 ??? Ulcerative colitis diagnosed in 1993 with L-sided disease Treated with sulfasalazine 3 g PO qd Colonoscopy 2001 - mildL sided disease Colonoscopy 09/19/08 (Dr. Shady Luz at [facility]) for surveillance for dysplasia. Areas of skip inflammation without ulceration in the transverse colon, descending colon, and the rectosigmoid. Upon attempt at retroflexion, a rectal mucosal tear requiring subsequent admission with 10 d Past Surgical History: Procedure Laterality Date ??? CREATED BY INTERFACE COLONOSCOPY WITH BIOPSY Procedure Date: 03/04/1994 ??? CREATED BY INTERFACE COLONOSCOPY-BIOPSY Procedure Date: 06/22/2002 ??? CREATED BY INTERFACE LIVER BIOPSY,ENDOSCOPIC Procedure Date: 04/04/2010 ??? CREATED BY INTERFACE TOTAL HIP ARTHROPLASTY / LEFT/PINNACLE AC/S-ROM ACETA/S-ROM FEMOR Procedure Date: 03/17/2006 ??? ORTHOPEDIC SURGERY THR 2005 ??? PRO COLONOSCOPY, BIOPSY 01/02/2011 COLONOSCOPY FLEXIBLE, WITH BX performed by YAQUELIN ESTRADA at [facility] END[facility]COPY ??? PRO COLONOSCOPY, BIOPSY N/A 03/04/2017 COLONOSCOPY FLEXIBLE, WITH BX (WRVU 3.66) performed by Raúl Austin MD at [facility] ??? PRO COLONOSCOPY, BIOPSY N/A 11/09/2019 COLONOSCOPY FLEXIBLE, WITH BX (WRVU 3.66) performed by Froilan Sahni MD at [facility] ??? PRO COLONOSCOPY, BIOPSY N/A 12/19/2020 COLONOSCOPY FLEXIBLE, WITH BX (WRVU 3.66) performed by Dajuan Rachel MD at [facility] ??? PRO COLONOSCOPY, DIAGNOSTIC N/A 11/09/2019 COLONOSCOPY, DIAGNOSTIC performed by Froilan Sahni MD at [facility] ??? PRO COLONOSCOPY, REMV LESN, SNARE 01/02/2011 COLONOSCOPY, POLYPECTOMY, REMOVAL LESION BY SNARE performed by YAQUELIN ESTRADA at [facility] ??? PRO COLONOSCOPY, REMV LESN, SNARE N/A 03/04/2017 COLONOSCOPY, POLYPECTOMY, REMOVAL LESION BY SNARE (WRVU 4.67) performed by Raúl Austin MD at [facility] ??? PRO COMBINED ANT/POST COLPORRHAPHY N/A 03/10/2018 COLPORRHAPHY ANTERIOR-POSTERIOR; INC CYSTOURETHROSCOPY (WRVU 14.44) performed by Liang Fong MD at [facility] MAIN OR ??? PRO REVAGINAL PROLAPSE, UTEROSACRAL N/A 03/10/2018 COLPOPEXY, VAGINAL, INTRAPERITONEAL APPROACH (WRVU 11.66) performed by Liang Fong MD at [facility] OR ??? PRO SLING OPER STRES INCONTINENCE N/A 03/10/2018 URETHRAL SUSPENSION, SLING\FASCIA OR SYNTHETIC (WRVU 12.13) performed by Liang Fong MD at [facility] MAIN OR ??? PRO VAG HYST, RMV TUBE/OVARY N/A 03/10/2018 HYSTERECTOMY, VAGINAL, REMOVAL TUBE(S) & OR OVARY(S) (WRVU 15.94) performed by Liang Fong MD at [facility] MAIN OR ??? SALPINGECTOMY ??? XR FLUORO INJECTION DRAINAGE JOINT LG RIGHT Right 03/09/2019 XR Fluoro Guided Joint Injection Large Right 03/09/2019 [facility] RAD XRAY FAMILY HISTORY: Family History Problem Relation Age of Onset ??? Hypertension Mother ??? Heart Disease Mother ??? Diabetes Mother ??? Heart Disease Father ??? Cancer Father Lung SOCIAL HISTORY: Tobacco : none Alcohol : rare Recreational drug use : Work : [employer] at [employer] Home : lives in [facility] with Hobbies : fishing, stamping FUNCTIONAL STATUS: Independent in all ADLs. MEDICATIONS: Current Outpatient Medications: ??? meclizine (Antivert) 25 mg Tablet, TAKE ONE TABLET BY MOUTH TWICE A DAY NEEDED FOR DIZZINESS, Disp: , Rfl: ??? loratadine (Claritin) 10 mg Tablet, Take by mouth., Disp: , Rfl: ??? Calcium Carbonate-Vitamin D3 500 mg-10 mcg (400 unit) Tablet, Take by mouth., Disp: , Rfl: ??? cyclobenzaprine (Flexeril) 5 mg Tablet, Take 1 tablet by mouth 3 times daily as needed for Muscle spasms., Disp: 30 tablet, Rfl: 1 ??? ustekinumab (Stelara) 90 mg/mL subcutaneous injection, Inject 1 mL subcutaneously Every 8 Weeks., Disp: 1 mL, Rfl: 5 ??? clindamycin (CLEOCIN T) 1 % Lotion, Apply to affected areas on abdomen twice daily for ten days. (Patient taking differently: as needed.), Disp: 60 mL, Rfl: 0 ??? triamcinolone (Kenalog) 0.1 % Cream, Apply to affected areas on bilateral forearms twice daily for two weeks, then stop for one week and continue as needed for maintenance, Disp: 30 g, Rfl: 0 ??? fish oil-omega-3 fatty acids 1,000 mg Capsule, Take 2 g by mouth daily., Disp: , Rfl: ??? cholecalciferol, Vitamin D3, (Vitamin D3) 1,000 unit Tablet, Take by mouth daily., Disp: , Rfl: ??? fexofenadine (DARRYN) 180 mg Tablet, Take 180 mg by mouth daily., Disp: , Rfl: ??? PROAIR HFA 90 mcg/actuation HFA Aerosol Inhaler, as needed., Disp: , Rfl: ??? metoprolol succinate (TOPROL-XL) 100 mg Tablet Sustained Release 24 hr, Take 50 mg by mouth daily., Disp: , Rfl: 3 ??? topiramate 50 mg capsule,sprinkle,ER 24hr, TAKE ONE CAPSULE BY MOUTH TWICE A DAY, Disp: , Rfl: 3 ??? aspirin 81 mg Tablet, Delayed Release (E.C.), Take 81 mg by mouth daily., Disp: , Rfl: ??? SUMAtriptan (IMITREX) 20 mg/actuation [place], Non-Aerosol, 1 spray as needed., Disp: , Rfl: ??? ferrous sulfate 325 mg (65 mg iron) Tablet, Take 325 mg by mouth daily., Disp: , Rfl: ??? metFORMIN (GLUCOPHAGE) 500 mg Tablet, Take 500 mg by mouth 2 times daily., Disp: , Rfl: 3 ??? hydrochlorothiazide (HYDRODIURIL) 12.5 mg Tablet, Take 12.5 mg by mouth daily., Disp: , Rfl: ??? simvastatin (ZOCOR) 10 mg Tablet, Take 10 mg by mouth nightly., Disp: , Rfl: ??? losartan (COZAAR) 50 mg Tablet, Take 50 mg by mouth daily., Disp: , Rfl: ??? Calcium Carbonate-Vitamin D2 600-200 mg-unit Tab, Take 1,200 mg by mouth 2 times daily., Disp: , Rfl: ??? fluticasone (FLOVENT) 110 mcg/Actuation inhaler, Inhale 1-2 puffs into the lungs daily., Disp: , Rfl: ??? magnesium oxide (MAG-OX) 400 mg tablet, Take 400 mg by mouth 2 times daily., Disp: , Rfl: ??? omeprazole (PriLOSEC) 40 mg Capsule, Delayed Release(E.C.), Take 40 mg by mouth daily., Disp: ,Rfl: ??? multivitamin (THERAGRAN) tablet, , Disp: , Rfl: ??? folic acid (FOLVITE) 1 mg tablet, 1 MG = 1 Tablet(s), PO, Once daily, Disp: , Rfl: ??? ascorbic acid (VITAMIN C) 1,000 mg tablet, 1000MG, PO, Once daily, Disp: , Rfl: ALLERGIES: Allergies Allergen Reactions ??? Ibuprofen chest pains, Patient reported ??? Celebrex [Celecoxib] Rash ??? Lodine [Etodolac] Itching ??? Amoxicillin-Pot Clavulanate Nausea And Vomiting Nausea/Vomiting, patient reported ??? Cephalexin Nausea And Vomiting Nausea/Vomiting, Patient reported ??? Doxycycline Nausea And Vomiting Nausea/Vomiting, Patient reported PHYSICAL EXAM: is present today BP 132/71 Pulse 69 Resp 16 SpO2 99% General: Patient is seated comfortably in NAD, well-groomed. HEENT: Head atraumatic, EOMI. Respiratory: Breathing comfortably on RA. Cardiovascular: 2+ peripheral pulses, no swelling Abdominal: non-distended, non-tender to palpation Skin: No appreciable rashes or skin breakdown Psych: Appropriate affect, A&Ox3 , answers questions appropriately Musculoskeletal: Inspection -increased thoracic kyphosis. No evidence of erythema, swelling or bruising over area ofpain. Palpation -no midline tenderness in the cervical spine, no paraspinal tenderness in the cervical, no significant tenderness or hypertonicity in the upper trapezius bilateral toda, no midline thoracicor lumbar tenderness, tenderness mid thoracic paraspinal musculature and along the medial scapular border paraspinal tenderness, no PSIS tenderness ROM -cervical range of motion quite limited in all planes, mild restriction with flexion extension of the thoracolumbar spine, range of motion of bilateral hips is essentially symmetric she does havesome mild restriction with internal rotation of the right hip compared to the left. Special tests - SLR b/l -negative bilateral Slump test -negative Facet joint loading (Kemps) -negative ZACHERY -negative FADIR -negative Stinchfield -negative Gaenslen's -negative Yordy's Finger -negative Thrust -negative Neurologic: Reflexes - 2/4 and symmetric in bilateral biceps, triceps, brachioradiali, 2/4 patellae, and 0/4 Achilles. No ankle clonus. Babinkski downgoing bilaterally, Neg. Lynne Motor -5/5 upper extremity bilateral including shoulder abduction/adduction, elbow flexion/extension, wrist flexion/extension, retail business development manager strength, finger abduction, thumb to index opposition 5/5 bilateral lower extremity strength including hip flexion/extension, knee flexion/extension, plantar and dorsiflexion of the ankles and great toes Sensation - Intact to light touch throughout all four extremities Gait/Station: Normal gait. No loss of balance noted. Transitions from exam room chair to table without difficulty. Able to walk on heels and toes. Able to perform half squat. TESTS/IMAGING: Cervical MRI 03/08/2022 EXAMINATION: MRI CERVICAL SPINE WO CONTRAST (GENERIC) ?? CLINICAL HISTORY: Neck pain, chronic; ank spond and UC reduced ROM on sterlar medication failure ?TECHNIQUE: MRI of the cervical spine performed without intravenous contrast administration. ?? COMPARISON: C-spine radiographs 12/13/2021 ?? FINDINGS: Unchanged alignment of the cervical spine. No spondylolisthesis. Unchanged ankylosis of the posterior elements from C2 to C4. Known ankylosis of the intervertebral body disc spaces from C2 to better appreciated on prior radiograph. No suspicious marrow signal abnormality. Normal signal in the spinal cord. Normal prevertebral soft tissues. ?? The foramen magnum is patent. The occipital atlantal and atlantodental relationships are normal. ?? There is an enlarged appearance of the anterior arch of C1 and it appears to be contiguous with the tip of the clivus likely representing a post inflammatory/ankylotic change. ?? C2-3: No spinal canal or neural foraminal narrowing. ?? C3-4: No spinal canal or neural foraminal narrowing. ?? C4-5: No spinal canal narrowing. Mild bilateral neural foraminal narrowing due to facet arthropathy and uncovertebral hypertrophy. ?? C5-6: No spinal canal narrowing. Mild lateral neural foraminal narrowing due to facet arthropathy and uncovertebral hypertrophy. ?? C6-7: No spinal canal or neural foraminal narrowing. ?? C7-T1: No spinal canal or neural foraminal narrowing. ?? IMPRESSION 1. 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 2. No spinal canal stenosis. 3. No more than mild neural foraminal narrowing at C4-5 and C5-6. Cervical x-ray 12/13/2021 EXAMINATION: XR CERVICAL SPINE 2 OR 3 VIEWS ?? CLINICAL HISTORY: inflammatory arthopathy with pain in the neck ? TECHNIQUE: 2 views of the cervical spine ?? COMPARISON: August 2015 ?? FINDINGS: No prevertebral soft tissue swelling. The bones are demineralized. Intact vertebral body heights and disc space heights. The C2-C3 and C3-C4 intervertebral body disc spaces and the facet joints are fused bilaterally, similar to prior. The other vertebral bodies and facet joints are not fused. There is similar osteophytes and joint space narrowing at the C4-C5, C5-C6, C6-C7, C7-T1 facet joints bilaterally. No spondylolisthesis. ?? IMPRESSION Similar ankylosis of C2-C4. ?? Similar facet osteoarthropathy from C4 to T1. Xray 05/07/22 EXAMINATION: XR THORACIC SPINE 2 VIEW INCLUDING SWIMMERS VIEW ?? CLINICAL HISTORY: chronic thoracic back pain hx ankylosing spondylitis ?? TECHNIQUE: Thoracic spine AP, lateral and swimmer's ?? COMPARISON: None ?? FINDINGS: There is no fracture or malalignment. ?? Very slight narrowing is seen in the lower thoracic disc interspaces. No vertebral body ankylosis is detected. ?? Facet arthropathy is visible in the lower cervical spine. ?? IMPRESSION No acute pathology. No ankylosis. Mild degenerative disc disease EXAMINATION: XR LUMBAR SPINE 2 OR 3 VIEWS (GENERIC) ?? CLINICAL HISTORY: chronic low back pain hx ankylosing spondylitis ?? TECHNIQUE: Lumbar spine AP and lateral ?? COMPARISON: August 24, 2015 ?? FINDINGS: There are five [id number] lumbar-type vertebrae. ?? The osseous structures are diffusely demineralized. ?? No fracture or malalignment is seen. Slight narrowing of L5-S1 is unchanged. There is no vertebral body ankylosis. ?? Again seen is ankylosis of the sacroiliac joints. The right hip joint is narrowed. A left hip prosthesis is partially visible. ?? IMPRESSION Very mild degenerative disc disease L5-S1 is unchanged. No vertebral body ankylosis. Ankylosis of the sacroiliac joints is consistent with a history of ankylosing spondylitis. Osteoarthritis of the right hip A/P: Encounter Diagnoses Name Primary? Chronic bilateral thoracic back pain ??? Chronic neck pain ??? Chronic bilateral low back pain without sciatica ??? Ankylosing spondylitis of multiple sites in spine #1 chronic axial neck pain without radiculopathy, patient has underlying ankylosing spondylitis andhas ankylosis of C2-C4, she has adjacent level facet and uncovertebral arthropathy as well as degenerative disc disease. Suspect these are contributing to her pain in addition to strong myofascial component. No evidence of myelopathy at this time. Recent MRI showed no level of high-grade central orneuroforaminal stenosis, no cord signal abnormality. Reassuring neurological examination. Patient has seen improvement in pain and function in the cervical region since prior visit. #2 chronic axial thoracic pain, likely multifactorial, suspect component is related to underlying thoracic spondylosis, she does have increased thoracic kyphosis without evidence of compression fracture on recent x-ray. She has no midline tenderness today. She probably has tenderness over the paraspinal musculature in the mid thoracic and along the medial scapular border consistent with myofascial pain. #3 chronic axial low back pain, again likely multifactorial in patient with ankylosing spondylitis,prior x-rays have demonstrated ankylosis of her SI joints, she does not have significant tendernessin the region of the SI joints today, consider component of inflammatory etiology, consider component of degenerative spondylosis as well. She is not having any radicular symptoms at this time. She has a reassuring neurological examination. Patient does have chronic immunosuppression no other red flag symptoms identified. Since prior visit patient had improvement in pain in the lumbar region. #4 chronic pain syndrome, consider component of pain centralization. #5 60 pound weight loss through diligent diet and lifestyle modifications I congratulated patient on her success. Plan: I reviewed the relevant imaging studies with the patient. We discussed the differential diagnosis at length. I reviewed multiple options for further evaluation and treatment. I am recommending a multidisciplinary treatment plan to help this patient better manage his/her pain. 1. Physical Therapy: Patient is not interested in physical therapy referral at this time. Encouraged her to continue to stay active, discussed regular stretching. Discussed importance of posture in her day to day activities. 2. Clinical Health Psychologist to address issues of relaxation, behavioral change, coping style, and other factors important to improvement: We will consider referral to the active pain care servicein the future. 3. Self Care Recommendations: Encouraged her to continue regular low impact cardiovascular exercise, recommended walking 30 minutes a day. Continue ice and heat therapy. Continue to maintain a healthy body weight. Patient has found the TENS unit to be quite helpful for her, recommended continuing to use this. 4. Diagnostic Studies: Reviewed recent lumbar and thoracic imaging with patient today. No additional imaging studies ordered. 5. Medication Management: Patient is continue to follow with Dr. Fong for medication management ofher ankylosing spondylitis. She has found the cyclobenzaprine to be quite helpful for her, she is using this sparingly typically just at night. Continued certainly reasonable to continue this medication. She has 1 refill left, discussed with her that I would be happy to refill this but she can alsorequest refills from her primary care provider or Dr. Fong. 6. Further procedures recommended: Discussed possibility of ultrasound-guided thoracic trigger point injections, will hold off interventions however at this time. 7. Referrals: No referrals provided today. 8. Release of information: We will send today's note to Dr. Fong referring provider and patient's primary care provider. 9. Follow up: Patient to follow-up on an as-needed basis. Thank you for allowing us the opportunity to participate in Kim's care. Jorje Marquez DO Pain Neighborhood Planner Professor of Anesthesiology [facility] CC: Marcio Devlin DO [address] [place] [address] documented in this encounter Plan of Treatment Upcoming Encounters Date Type Department Care Team (Late st Contact Info) Description 04/19/2024 10:00 AM EDT Hospital Encounter Non-[place] [address] Arrived 04/29/2024 9:50 AM EDT [place] [id number] Luis Alfredo Velazquez MD [facility] [place] [address] 04/29/2024 9:50 AM [place] [id number] Luis Alfredo Velazquez MD [facility] [place] [place] [address] 06/07/2024 2:30 PM EDT TH Visit (TeleHealth) Gastroenterology at [place] [id number] Dajuan Rachel MD [facility] [facility] [place] [address] 07/02/2024 2:00 PM EDT Appointment Non-[place]vasive [place] [address] Luis Alfredo Velazquez MD [facility] [place] [address] 07/02/2024 4:40 PM EDT Office Visit Cardiology at [place] [phone] Luis Alfredo Velazquez MD [facility] [place] [address] documented as of this encounter Visit Diagnoses Diagnosis Chronic bilateral thoracic back pain Chronic neck pain Cervicalgia Chronic bilateral low back pain without sciatica Ankylosing spondylitis of multiple sites in spine Ankylosing spondylitis documented in this encounter Care Teams Substation Operator Conversion Relationship Specialty Start Date End Date Marcio Devlin DO [address] [place] [id number] PCP - General Family Medicine 11/11/17 documented as of this encounter
--- OUTSIDE RECORDS SUMMARY | 2024-04-08 02:28 | XMS_ITS | Encounter Summary ---
Author Organization [facility] [place] [address] Care Team Providers Care Soil Checker Name Role Phone Marcio Devlin DO Primary Care Provider [phone] Encounter Details Date Type Department Care Team (Late st Contact Info) Description 09/10/2022 Telephone [place] [address] Lisa Dallas RN Social History Tobacco Use Types Packs/Day [...] encounter Miscellaneous Notes * Telephone Encounter - Lisa Dallas RN - 09/10/2022 11:54 AM EST TC from Kim stating that she was told her PA was denied for Stelara. Called her to let her know we have an active approval with filling at [facility]. Kim will call [employer] again and see if she can get her medication. Requested she called back if not the case. She was due 08/20 for a dose. documented in this encounter Plan of Treatment Upcoming Encounters Date Type Department Care Team (Late st Contact Info) Description 04/19/2024 10:00 AM EDT Hospital Encounter Non-[place]vasive [place] [address] Arrived 04/29/2024 9:50 AM EDT Appointment [place] [phone] [facility] [place] [address] 04/29/2024 9:50 AM EDT Appointment MRI at [place] [phone] [address] [facility] [place] [address] 06/07/2024 2:30 PM EDT TH Visit (TeleHealth) Gastroenterology at [address] [facility] [place] [address] 07/02/2024 2:00 PM EDT Appointment Non-Invasive [place] [phone] [facility] [place] [address] 07/02/2024 4:40 PM EDT Office Visit Cardiology at [place] [phone] [facility] [place] [address] documented as of this encounter Visit Diagnoses Not on filedocumented in this encounter Care Teams Soil Checker Relationship Specialty Start Date End Date Marcio Devlin DO [address] [place] [id number] PCP - General Family Medicine 11/11/17 documented as of this encounter
--- OUTSIDE RECORDS SUMMARY | 2024-04-08 02:28 | XMS_ITS | Encounter Summary ---
Author Organization Formerly [facility], [facility] [place] [address] Care Team Providers Care Taxi Driver Supervisor Name Role Phone Marcio Devlin DO Primary Care Provider [phone] Reason for Referral * Diagnostic Test (Routine) - Closed Specialty Diagnoses / Procedures Referred By Contac t Referred To Contact Radiology Diagnoses Ankylosing spondylitis of cervical region Neck pain Decreased ROM of neck Procedures MRI Cervical Spine wo Contrast (Generic) Gabe Fong MD [facility] [place] [address] [place] [address] Referral ID Status Reason Start Date Expiration Date V isits Requested Visits Authorized [id number] Closed Specialty Service Requested 02/22/2022 08/24/2023 1 1 Encounter Details Date Type Department Care Team (Late st Contact Info) Description 02/22/2022 10:30 AM EDT Office [place] [address] Gabe Fong MD [facility] [place] [address] Chronic left hip pain; Ankylosing spondylitis of cervical region; Ulcerative colitis without complications, unspecified location; Neck pain; Decreased ROM of neck; Chronic neck pain; Ankylosing spondylitis of cervical region; Pain in left hip; Chronic midline low back pain without sciatica; High risk medication use; Inflammatory arthropathy; Morning joint stiffness Social History Tobacco Use Types Packs/Day Years [...] Sign Reading Time Taken Comments Blood Pressure 133/68 02/22/2022 10:08 AM EDT Pulse 64 02/22/2022 10:08 AM EDT Temperature 36.2 ??C (97.1 ??F) 02/22/2022 1 0:08 AM EDT Respiratory Rate 20 02/22/2022 10:0 8 AM EDT Oxygen Saturation 99% 02/22/2022 10: 08 AM EDT Inhaled Oxygen Concentration - - Weight 78 kg (172 lb) 02/22/2022 10:08 AM EDT patient gave, scale is broken Height 166.4 cm (5' 5.5) 02/22/2022 10 :08 AM EDT Body Mass Index 28.19 02/22/2022 10:08 AM EDT documented in this encounter Progress Notes * Gabe Fong MD - 02/22/2022 10:30 AM EDT Rheumatology Follow-Up Video Note PCP: Marcio Devlin DO, Rheumatological History: 1. UC associated Ankylosing Spondylitis -Dx back in around [address] [...] 2005 Interval History: Kim Funes is a 61 y.o. female PMHx of MÉNDEZ and UC with presenting for follow up who hasbeen maintained on Humira and Sulfasalazine since beginning of 2010 and has been doing overall verywell since with no ADRs reported or known from current medication regimen. Recently switched to to stelara and AZA. She had serena episdoe of syncope at work decided to discontinue azathioprine since was also not effective. She had improvement in joint pains and very limited range of motion of the neck. Hips and other joints have improved overall feels like she is doing better does not feel like her Crohn's has been exacerbated. She is supposed to schedule repeat colonoscopy with Dr. Wilson Garcia that has not yet been arranged. 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 Headaches 9. Neck pain/stiffness x 10. Lymphadenopathy 11. 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 Paresthesia 38. Dysesthesia 39. Dizziness/vertigo When gets up in the AM 40. Anxiety 41. Depression 42. Cognitive problems 43. Initial insomnia 44. Night awakenings 45. Nonrestorative sleep Dermatologic 46. Xerosis cutis 47. Photosensitivity 48. Rash Patient's medications, allergies, past medical, surgical, social and family histories were reviewedand updated Patient's medications, allergies, past medical, surgical, social and family histories were reviewedand updated as appropriate. Physical Exam: BP 133/68 (BP Location (NBP): Left arm, Patient Position: Sitting, BP Cuff Sizes: Adult (25-34 cm)) Pulse 64 Temp 36.2 ??C (97.1 ??F) (Temporal) Resp 20 Ht 166.4 cm (5' 5.5) Wt 78 kg (172 lb) Comment: patient gave, scale is broken SpO2 99% BMI 28.19 kg/m?? General: NAD HEENT: Mucous membranes are moist, no oral mucosal ulcerations, temporal artery non-palpable Neck: Reduced ROM Cardiovascular: RR, (-)murmurs, rubs, or gallops. Lungs: Clear to auscultation bilaterally. (-)R/R/W Abdomen: Soft, non tender, non distended, + bowel sounds, no hepatosplenomegaly. Neuro: Alert and oriented x3. Cranial nerves II through XII grossly intact. Skin: (-)ulcers, (-)rash \ Vascular: Pulses are equal in all extremities. MSK Back: Non tender over the spine and costovertebral angles bilaterally. (-)Radha Shober 13.5 not assessed today since patient is doing better in that regard. Extremities Shoulders: FROM, non-tender to palpation Elbows:FROM, [...] at any joint. No soft tissue nodules. Recent Results (from the past 72 hour(s)) Sedimentation rate Result Value Ref Range Sed Rate 42 (H) 2 - 39 mm/hr CRP, acute inflammation Result Value Ref Range CRP 15.0 (H) <=4.9 mg/L Comprehensive metabolic panel (non-fasting) Result Value Ref Range Glucose Lvl 102 65 - 199 mg/dL BUN 19 (H) 8 - 18 mg/dL Creatinine 0.78 0.70 - 1.20 mg/dL Sodium 144 135 - 145 mmol/L Potassium 4.1 3.5 - 5.0 mmol/L Chloride 106 98 - 107 mmol/L CO2 26 22 - 31 mmol/L Anion Gap 12 5 - 15 mmol/L Calcium 10.1 8.5 - 10.5 mg/dL Total Protein 8.0 6.1 - 8.0 g/dL Albumin 4.1 3.2 - 5.2 g/dL AST 23 0 - 30 unit/L ALT 19 0 - 30 unit/L Alk Phos 122 (H) 35 - 105 unit/L Total Bilirubin 0.4 0.2 - 1.3 mg/dL Estimated GFR 83 >=60 mL/min/1.73 m?? Hemogram Result Value Ref Range WBC 8.0 4.0 - 9.5 x10(3)/mcL RBC 4.80 4.00 - 5.21 x10(6)/mcL Hemoglobin 13.6 11.7 - 15.5 g/dL Hematocrit 42.4 35.7 - 45.8 % MCV 88.3 82.6 - 94.4 fL MCH 28.3 27.1 - 32.0 pg MCHC 32.1 31.7 - 35.0 g/dL Platelets 262 145 - 357 x10(3)/mcL RDWSD 44.7 37.0 - 46.0 fL RDWCV 13.6 11.5 - 14.1 % MPV 10.0 7.6 - 12.9 fL nRBC % Auto 0.0 % nRBC Abs Auto 0.000 0.000 - 0.000 x10(3)/mcL Differential, Automated Result Value Ref Range Neutrophils % 61.2 % Neutr Abs (ANC) 4.92 1.70 - 6.10 x10(3)/mcL Lymphocytes % 27.7 % Lymphocytes Abs 2.2 0.9 - 3.2 x10(3)/mcL Monocytes % 8.4 % Monocyte Abs 0.7 0.3 - 0.9 x10(3)/mcL Eosinophils % 2.0 % Eosinophils Abs 0.2 0.0 - 0.4 x10(3)/mcL Basophils % 0.5 % Basophils Abs 0.0 0.0 - 0.1 x10(3)/mcL Immature Gran % 0.20 % Melanie Gran Abs 0.02 0.00 - 0.04 x10(3)/mcL Bilirubin, Direct Result Value Ref Range Bili, Direct 0.1 0.0 - 0.3 mg/dL Imaging: Ostepneia on Dexa IMPRESSION The measurements satisfied the WHO classification for low bone mass or osteopenia. There is no significant change since 2011. Assessment and plan: Kim Funes is a 61 y.o. female PMHx of MÉNDEZ and UC with presenting for follow up who hasbeen maintained on Humira and Sulfasalazine since beginning of 2010 and has been overall been well controlled with known or reported ADRs from medications. Ulcerative colitis related with ankylosing spondylitis- - UC quite -concerns for worsening - Concern is progressing Malcom appears quite except hip pain also improved however elevatedinflammatory markers and decreased range of motion of the neck-x-rays in November did not show progression we will get MRI -Symptomatic with Dr. Wilson Garcia will message them again about considering switching to Xeljanz Rinvoq or Remicade as alternative therapy Hip Replacement -MRI reassuring hip injections seem to improve symptoms . High risk medication high feng of immun compromise DiscontinuedAZA monitoring Orders Placed This Encounter Procedures ??? MRI Cervical Spine wo Contrast (Generic) ??? CBC (with Diff) ??? Comprehensive metabolic panel (non-fasting) ??? CRP, acute inflammation ??? Sedimentation rate ??? Hemogram ??? Differential, Automated ??? Bilirubin, Direct Return in about 3 weeks (around 03/15/2022). documented in this encounter Plan of Treatment Upcoming Encounters Date Type Department Care Team (Late st Contact Info) Description 04/19/2024 10:00 AM EDT Hospital Encounter Non-[place] [phone] Arrived 04/29/2024 9:50 AM EDT [place] [address] Luis Alfredo Velazquez MD [facility] [address] [place] [address] 04/29/2024 9:50 AM EDT [place] [phone] Luis Alfredo Velazquez MD [facility] [place] [address] 06/07/2024 2:30 PM EDT TH Visit (TeleHealth) [place] [address] Dajuan Rachel MD [facility] [place] [address] 07/02/2024 2:00 PM EDT Appointment Non-[place] [phone] Luis Alfredo Velazquez MD [facility] [place] [address] 07/02/2024 4:40 PM EDT Office Visit Cardiology at [address] [phone] Luis Alfredo Velazquez MD [facility] [place] [address] documented as of this encounter Procedures Procedure Name Priority Date/Time Associated Diagnosis Comments HC C-REACTIVE PROTEIN Routine 02/22/2022 11:05 AM EDT Chronic left hip pain Ankylosing spondylitis of cervical region Ulcerative colitis without complications, unspecified location Neck pain BILIRUBIN, DIRECT Routine 02/22/2022 11: 05 AM EDT HEMOGRAM Routine 02/22/2022 11:05 AM EDT Chronic left hip pain Ankylosing spondylitis of cervical region Ulcerative colitis without complications, unspecified location Neck pain DIFFERENTIAL, AUTOMATED Routine 02/22/2022 11:05 AM EDT Chronic left hip pain Ankylosing spondylitis of cervical region Ulcerative colitis without complications, unspecified location Neck pain HC ESR-SEDIMENTATION RATE, BLOOD Routine 02/22/2022 11:05 AM EDT Chronic left hip pain Ankylosing spondylitis of cervical region Ulcerative colitis without complications, unspecified location Neck pain HC CBC,PLT & AUTO DIFF Routine 11:05 AM EDT Chronic left hip pain Ankylosing spondylitis of cervical region Ulcerative colitis without complications, unspecified location Neck pain COMPREHENSIVE METABOLIC PANEL (NON-FASTING) Routine 02/22/2022 11:05 AM EDT Chronic left hip pain Ankylosing spondylitis of cervical region Ulcerative colitis without complications, unspecified location Neck pain documented in this encounter Results * MRI Cervical Spine wo Contrast (Generic) (03/08/2022 7:54 AM EDT) Anatomical Region Laterality Modality C-spine Magnetic Resonan ce Impressions 03/08/2022 3:59 PM EDT 1. 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 2. ??No spinal canal stenosis. 3. ??No more than mild neural foraminal narrowing at C4-5 and C5-6. I have personally reviewed the image(s) and the resident's interpretation and agree with the findings, Jorje Miller MD at 03/08/2022 3:59 PM Thank you for letting us participate in the care of this patient. ??If you are a health care provider and have any questions regarding this report, please contact the number below. ??For patients who have questions please contact the health career development counselor that requested your imaging first. ? Electronically signed by: Jorje Miller MD, [facility] ([phone]), at 03/08/2022 3:59 PM Narrative 03/08/2022 3:59 PM EDT EXAMINATION: MRI CERVICAL SPINE WO CONTRAST (GENERIC) CLINICAL HISTORY: Neck pain, chronic; ank spond and UC reduced ROM on sterlar medication failure TECHNIQUE: MRI of the cervical spine performed without intravenous contrast administration. COMPARISON: C-spine radiographs 12/13/2021 FINDINGS: Unchanged alignment of the cervical spine. No spondylolisthesis. Unchanged ankylosis of the posterior elements from C2 to C4. Known ankylosis of the intervertebral body disc spaces from C2 to better appreciated on prior radiograph. No suspicious marrow signal abnormality. Normal signal in the spinal cord. Normal prevertebral soft tissues. The foramen magnum is patent. The occipital atlantal and atlantodental relationships are normal. There is an enlarged appearance of the anterior arch of C1 and it appears to be contiguous with the tip of the clivus likely representing a post inflammatory/ankylotic change. C2-3: No spinal canal or neural foraminal narrowing. C3-4: No spinal canal or neural foraminal narrowing. C4-5: No spinal canal narrowing. Mild bilateral neural foraminal narrowing due to facet arthropathy and uncovertebral hypertrophy. C5-6: No spinal canal narrowing. Mild lateral neural foraminal narrowing due to facet arthropathy and uncovertebral hypertrophy. C6-7: No spinal canal or neural foraminal narrowing. C7-T1: No spinal canal or neural foraminal narrowing. Procedure Note Jorje Miller MD - 03/08/2022 EXAMINATION: MRI CERVICAL SPINE WO CONTRAST (GENERIC) CLINICAL HISTORY: Neck pain, chronic; ank spond and UC reduced ROM onsterlar medication failure TECHNIQUE: MRI of the cervical spine performed without intravenous contrastadministration. COMPARISON: C-spine radiographs 12/13/2021 FINDINGS: Unchanged alignment of the cervical spine. No spondylolisthesis.Unchanged ankylosis of the posterior elements from C2 to C4. Known ankylosis ofthe intervertebral body disc spaces from C2 to better appreciated on prior radiograph. No suspicious marrow signal abnormality. Normal signal in thespinal cord. Normal prevertebral soft tissues. The foramen magnum is patent. The occipital atlantal and atlantodental relationships are normal. There is an enlarged appearance of the anterior arch of C1 and it appearsto be contiguous with the tip of the clivus likely representing a post inflammatory/ankylotic change. C2-3: No spinal canal or neural foraminal narrowing. C3-4: No spinal canal or neural foraminal narrowing. C4-5: No spinal canal narrowing. Mild bilateral neural foraminal narrowingdue to facet arthropathy and uncovertebral hypertrophy. C5-6: No spinal canal narrowing. Mild lateral neural foraminal narrowingdue to facet arthropathy and uncovertebral hypertrophy. C6-7: No spinal canal or neural foraminal narrowing. C7-T1: No spinal canal or neural foraminal narrowing. IMPRESSION 1. 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 2. No spinal canal stenosis. 3. No more than mild neural foraminal narrowing at C4-5 and C5-6. I have personally reviewed the image(s) and the resident's interpretationand agree with the findings, Jorje Miller MD at 03/08/2022 3:59 PM Thank you for letting us participate in the care of this patient. If youare a health care provider and have any questions regarding this report,please contact the number below. For patients who have questions please contactthe health career development counselor that requested your imaging first. Electronically signed by: Jorje Miller MD, [facility]([phone]), at 03/08/2022 3:59 PM Gabe Fong MD IM MRI ORDERABLES * Bilirubin, Direct (02/22/2022 11:05 AM EDT) Bili, Direct 0.1 0.0 - 0.3 mg/dL [facility] Blood 02/22/2022 11:0 5 AM EDT 02/22/2022 11:22 AM EDT Narrative Resulting Agency Comment Spec In Lab Gabe Fong MD CHEMISTRY ORDERABLES [facility] [place] [place] [address] * Differential, Automated (02/22/2022 11:05 AM EDT) Neutrophils % 61.2 % [facility] Neutr Abs (ANC) 4.92 1.70 - 6.10 x10(3)/[facility] Lymphocytes % 27.7 % [facility] Lymphocytes Abs 2.2 0.9 - 3.2 x10(3)/[facility] Monocytes % 8.4 % [facility] Monocyte Abs 0.7 0.3 - 0.9 x10(3)/[facility] Eosinophils % 2.0 % [facility] Eosinophils Abs 0.2 0.0 - 0.4 x10(3)/[facility] Basophils % 0.5 % [facility] Basophils Abs 0.0 0.0 - 0.1 x10(3)/[facility] Immature Gran % 0.20 % [facility] Comment: Immature granulocytes(IG's)percentage and absolute count will include metamyelocytes, myelocytes, and promyelocytes. Blood smears from CBCs yielding IG's will be scanned manually for concordance. If this scan disagrees with the automated IG or if promyelocytes are noted, a manual differential will be performed. Melanie Gran Abs 0.02 0.00 - 0.04 x10(3)/[facility] Blood 02/22/2022 11:0 5 AM EDT 02/22/2022 11:22 AM EDT Narrative Resulting Agency Comment Spec In Lab Gabe Fong MD HEMATOLOGY ORDERABLE S [facility] [place] [address] * Hemogram (02/22/2022 11:05 AM EDT) [facility] WBC 8.0 4.0 - 9.5 x10(3)/[facility]ORATORY RBC 4.80 4.00 - 5.21 x10(6)/[facility] Hemoglobin 13.6 11.7 - 15.5 g/dL [facility] Hematocrit 42.4 35.7 - 45.8 % [facility] MCV 88.3 82.6 - 94.4 [facility] MCH 28.3 27.1 - 32.0 pg [facility] MCHC 32.1 31.7 - 35.0 g/dL [facility] Platelets 262 145 - 357 x10(3)/[facility]ORATORY RDWSD 44.7 37.0 - 46.0 [facility] RDWCV 13.6 11.5 - 14.1 % [facility] MPV 10.0 7.6 - 12.9 [facility]ATORY nRBC % Auto 0.0 % [facility] nRBC Abs Auto 0.000 0.000 - 0.000 x10(3)/[facility] Blood 02/22/2022 11:0 5 AM EDT 02/22/2022 11:22 AM EDT Narrative Resulting Agency Comment Spec In Lab Gabe Fong MD HEMATOLOGY ORDERABLE S [facility] [place] [address] * (ABNORMAL) Comprehensive metabolic panel (non-fasting) (02/22/2022 11:05 AM EDT) [facility] Glucose Lvl 102 65 - 199 mg/dL [facility] Comment:Diabetes: >=200 mg/d L plus symptoms BUN 19(H) 8 - 18 mg/dL [facility] Creatinine 0.78 0.70 - 1.20 mg/dL [facility] Sodium 144 135 - 145 mmol/L [facility] Potassium 4.1 3.5 - 5.0 mmol/L [facility] Comment: Please note: ??Patients with WBC >100,000 may have falsely elevated Potassium levels. ??For accurate Potassium quantification in these patients send serum separator tube (gold top) for subsequent determinations. ??Contact the Clinical Chemistry Laboratory if there are any questions. Chloride 106 98 - 107 mmol/L [facility] CO2 26 22 - 31 mmol/L [facility] Anion Gap 12 5 - 15 mmol/L [facility] Calcium 10.1 8.5 - 10.5 mg/dL [facility] Total Protein 8.0 6.1 - 8.0 g/dL [facility] Albumin 4.1 3.2 - 5.2 g/dL [facility] AST 23 0 - 30 unit/L [facility] ALT 19 0 - 30 unit/L [facility] Alk Phos 122(H) 35 - 105 unit/L [facility] Total Bilirubin 0.4 0.2 - 1.3 mg/dL [facility] Estimated GFR 83 >=60 mL/min/1. 73 m?? [facility] Comment: This patient? s estimated glomerular filtration rate (eGFR) is between 83 mL/min/1.73 m2 (patients with less muscle mass) and 96 mL/min/1.73 m2 (patients with more muscle mass) as determined by the CKD-EPI equation. Assessment of eGFR is not appropriate when creatinine concentrations are rapidly changing. For clinical decisions where creatinine clearance will affect therapy, a 24-hour urine creatinine clearance may be advised. Assignment of CKD stage 1 - 5 for patients with an eGFR near the transition point between stages may be based on clinical assessment of muscle mass and symptoms in addition to eGFR. Blood 02/22/2022 11:0 5 AM EDT 02/22/2022 11:22 AM EDT Narrative Resulting Agency Comment Spec In Lab Gabe Fong MD CHEMISTRY ORDERABLES Performing Organization Address [facility] Co de Phone Number [facility] [place] [address] * (ABNORMAL) CRP, acute inflammation (02/22/2022 11:05 AM EDT) CRP 15.0(H) <=4.9 mg/L [facility] Blood 02/22/2022 11:0 5 AM EDT 02/22/2022 11:22 AM EDT Narrative Resulting Agency Comment Spec In Lab Gabe Fong MD CHEMISTRY ORDERABLES Performing Organization Address [facility] de Phone Number [facility] [place] [address] * (ABNORMAL) Sedimentation rate (02/22/2022 11:05 AM EDT) Sed Rate 42(H) 2 - 39 mm/hr [facility] Comment: Effective August 25, 2019 new capillary photometric technology has resulted in a change in reference ranges. It is recommended that each ESR result be reviewed with its own age appropriate reference range. Blood 02/22/2022 11:0 5 AM EDT 02/22/2022 11:22 AM EDT Narrative Resulting Agency Comment Spec In Lab Gabe Fong MD HEMATOLOGY ORDERABLE S Performing Organization Address [facility] Co de Phone Number [facility] [place] [address] documented in this encounter Visit Diagnoses Diagnosis Chronic left hip pain Pain in joint, pelvic region and thigh Ankylosing spondylitis of cervical region Ankylosing spondylitis Ulcerative colitis without complications, unspecified location Neck pain Cervicalgia Decreased ROM of neck Chronic neck pain Cervicalgia Pain in left hip Pain in joint, pelvic region and thigh Chronic midline low back pain without sciatica High risk medication use Encounter for long-term (current) use of other medications Inflammatory arthropathy Arthropathy, unspecified, site unspecified Morning joint stiffness Stiffness of joint, not elsewhere classified, unspecified site Ankylosing spondylitis of cervical region Ankylosing spondylitis Neck pain Cervicalgia Decreased ROM of neck documented in this encounter Care Teams Taxi Driver Supervisor Relationship Specialty Start Date End Date Marcio Devlin DO [address] [place] [address] PCP - General Family Medicine 11/11/17 documented as of this encounter
--- OUTSIDE RECORDS SUMMARY | 2024-04-08 02:28 | XMS_ITS | Encounter Summary ---
Author Organization Formerly [facility] [address] Care Team Providers Care Paste Worker Name Role Phone Marcio Devlin DO Primary Care Provider Reason for Visit * Auth/Cert (Routine) Specialty Diagnoses / Procedures Referred By Contac t Referred To Contact Diagnoses Restaging UC since changing to Stelara 03/2021 Procedures PRO COLONOSCOPY, DIAGNOSTIC COLONOSCOPY, DIAGNOSTIC Dajuan Rachel MD [facility] [place] [address] [facility] Referral ID Status Reason Start Date Expiration Date Visits Re quested Visits Authorized [id number] 1 1 Encounter Details Date Type Department Care Team (Latest Contact Info) Description 09/24/2022 9:56 AM EST - 09/24/2022 1:32 PM EST Hospital Encounter [place] [address] Dajuan Rachel MD [facility] [place] [address] Discharge Disposition: Home Social History Tobacco Use [...] Sign Reading Time Taken Comments Blood Pressure 135/75 09/24/2022 1:20 PM EST Pulse 71 09/24/2022 12:40 PM EST Temperature 36.6 ??C (97.9 ??F) 09/24/2022 11:[address] Respiratory Rate 18 09/24/2022 1:20 PM EST Oxygen Saturation 100% 09/24/2022 1:20 PM EST Inhaled Oxygen Concentration - - Weight - - Height - - Body Mass Index - - documented in this encounter Discharge Instructions * Discharge Instructions* Ha Hernandes RN - 09/24/2022 1:19 PM EST Colonoscopy: What to Expect at [...] occurs, please contact your Doctor. Please call [phone] before 8pm Mon-Fri with problems, questions or concerns. If you call after 8pm or on weekends, call the Hospital at [phone] and ask to speak to the Manager Technology supervisor dimension warehouse and the spray drier operator will contact that person for you. When should you call for help? Call 911 anytime you think you may need emergency [...] any problems. Where can you learn more? [facility] View your After Visit Summary and more online at [email or web address] If you would like to provide feedback about your hospital experience, please call the Office of Patient and Family Relations at . If you have received this After Visit Summary in error, please immediately return it in person to the department, or notify the [facility] Privacy Office by calling toll free at between the hours of 8AM and 5PM to arrange for our retrieval of the documents at no cost to you. Content Version: 12.2 ?? [phone] [employer]. Care instructions adapted under license by [employer]. If you have questions about a medical condition or this instruction, always ask your healthcare professional. [employer] disclaims any warranty or liability for your [...] by mouth daily. SUMAtriptan (IMITREX) 20 mg/actuation Kinsey, Non-Aerosol 1 spray as needed. 11/03/2017 metFORMIN [...] 02/21/2011 10/07/2023 documented as of this encounter Progress Notes * Dajuan Rachel MD - 09/24/2022 1:32 PM EST Kim Funes [address] [place] [phone] October 20, 2022 Dear : Biopsies taken during your recent colonoscopy showed only very mild microscopic signs of colitis and no signs of dysplasia (which is a precancerous cellular change associated sometimes with chronic colitis). This is excellent news. There was one polyp removed which was a serrated adenoma. There were no signs of cancer, but these require careful follow-up, especially in those who have ulcerative colitis. I recommend a repeat colonoscopy in two years. I have taken the liberty of putting your name in a file in our office and you should be notified of the appointment for your next exam as that date approaches. In the meantime, please let me know if you have any concerns or questions. Sincerely, Freddy Rachel MD Structural Metal Workerupsetter Co-Director, [facility] Section of Gastroenterology [place] [address] CC: Marcio Devlin DO [address] [place] [id number] documented in this encounter H&P Notes * Dajuan Rachel MD - 09/24/2022 11:58 AM EST Gastroenterology and Hepatology Pre-Procedure History and Physical Exam Procedure: Colonoscopy: Indication: Patient Active Problem List Diagnosis Code ??? [...] sugar R73.09 ??? Adalimumab (Humira) long-term use Z79.620 ??? Chronic rhinitis J31.0 ??? Closed fracture [...] incontinence, female) N39.3 ??? Urethral caruncle N36.2 EXAM: HEENT: Airway examined, oropharynx clear Mallampati Score: II (soft palate, uvula, fauces visible) LUNGS: Clear to auscultation HEART: Regular rate and rhythm, normal S1, S2 ABDOMEN: Normal bowel sounds, soft, non tender, non distended, A/P Proceed with the planned endoscopic procedure. ASA 3 - Patient with moderate systemic disease with functional limitations Sedation Plan: moderate (conscious sedation) Risks and benefits of the procedure explained to the patient. Consent signed. documented in this encounter Plan of Treatment Upcoming Encounters Date Type Department Care Team (Late st Contact Info) Description 04/19/2024 10:00 AM EDT Hospital Encounter Non[place] [phone] Arrived 04/29/2024 9:50 AM EDT [place] [address] Luis Alfredo Velazquez MD [facility] [place] [address] 04/29/2024 9:50 AM EDT [place] [address] Luis Alfredo Velazquez MD [facility] [place] [address] 06/07/2024 2:30 PM EDT TH Visit (TeleHealth) [place] [address] Dajuan Rachel MD [facility] [place] [address] 07/02/2024 2:00 PM EDT Appointment Non[place] [address] Luis Alfredo Velazquez MD [facility] [place] [address] 07/02/2024 4:40 PM EDT Office Visit Cardiology at [address] [phone] Luis Alfredo Velazquez MD [facility] [place] [address] documented as of this encounter Procedures Procedure Name Priority Date/Time Associated Diagnosis Comments SPECIMEN TO PATHOLOGY Routine 09/24/2022 12:43 PM EST SPECIMEN TO PATHOLOGY Routine 09/24/2022 12:43 PM EST SPECIMEN TO PATHOLOGY Routine 09/24/2022 12:43 PM EST SPECIMEN TO PATHOLOGY Routine 09/24/2022 12:43 PM EST SPECIMEN TO PATHOLOGY Routine 09/24/2022 12:43 PM EST SURGICAL PATHOLOGY REPORT Routine 09/24/2022 12:29 PM EST Colonoscopy, Ryan Alvarado ([id number]) 09/24/2022 12:05 PM EST Ulcerative pancolitis with complication Colonoscopy, Biopsy ([id number]) 09/24/2022 12:05 PM EST Ulcerative pancolitis with complication COLONOSCOPY Routine 09/24/2022 10:54 AM EST documented in this encounter Results * Specimen to Pathology (09/24/2022 12:43 PM EST) AP Specimen 09/24/2022 12:4 3 PM EST 09/24/2022 12:43 PM EST Narrative [facility] - 09/24/2022 12:43 PM EST Specimen requisition ordered. ??Separate Pathology report to follow L Jose Rachel MD PATHOLOGY/CYTOLOGY O IRMA Performing Organization Address City/[facility]/ZIP Co de Phone Number [facility] [place] [address] * Specimen to Pathology (09/24/2022 12:43 PM EST) AP Specimen 09/24/2022 12:4 3 PM EST 09/24/2022 12:43 PM EST Narrative [facility] - 09/24/2022 12:43 PM EST Specimen requisition ordered. ??Separate Pathology report to follow L Jose Rachel MD PATHOLOGY/CYTOLOGY O IRMA Performing Organization Address City/[facility]/ZIP Co de Phone Number [facility] [place] [address] * Specimen to Pathology (09/24/2022 12:43 PM EST) AP Specimen 09/24/2022 12:4 3 PM EST 09/24/2022 12:43 PM EST Narrative [facility] - 09/24/2022 12:43 PM EST Specimen requisition ordered. ??Separate Pathology report to follow L Jose Rachel MD PATHOLOGY/CYTOLOGY O IRMA [facility] [place] [address] * Specimen to Pathology (09/24/2022 12:43 PM EST) AP Specimen 09/24/2022 12:4 3 PM EST 09/24/2022 12:43 PM EST Narrative [facility] - 09/24/2022 12:43 PM EST Specimen requisition ordered. ??Separate Pathology report to follow L Jose Rachel MD PATHOLOGY/CYTOLOGY O IRMA Performing Organization Address [facility] [place] [address] * Specimen to Pathology (09/24/2022 12:43 PM EST) AP Specimen 09/24/2022 12:4 3 PM EST 09/24/2022 12:43 PM EST Narrative [facility] - 09/24/2022 12:43 PM EST Specimen requisition ordered. ??Separate Pathology report to follow L Jose Rachel MD PATHOLOGY/CYTOLOGY O IRMA Performing Organization Address [facility] Co de Phone Number [facility] [place] [address] * Surgical Pathology Report (09/24/2022 12:29 PM EST) FINAL DIAGNOSIS (AP) [id number] ? Location: 4T; [facility]; A The signing pathologist has (i) examined the relevant preparation(s) for the specimen(s) and (ii) rendered or confirmed the diagnosis(es). . ?Surgical Pathology DIAGNOSIS A - Targeted biopsies at hepatic flexure, biopsy: - Focal m ildly active chronic colitis, negative for dysplasia. B - Hepatic flexure polyp, excision: - ??Sessile serrated polyp/adenoma. C - Targeted biopsies at 37cm, biopsy: - ??Colonic mucosa with mild architectural disarray, negative for dysplasia. D - Targeted biopsies at 15cm, biopsy: - Patchy ??mildly active chronic colitis, negative for dysplasia. E - Targeted biopsies at ano-rectal junction, biopsy: - Intestinal mucosa with mild chronic inflammation, negative for dysplasia. CR-PX Electronically signed by: ?Iker Jansen MD Verified: ??09/27/2022 17:03 ??Pathologist Performed at: ??-[facility] Dept. of Pathology, [place] [address] Bicycle Fitter: Dg Brown MD, FCAP, ??CLIA Certificate: [id number] SPECIMEN(S) SUBMITTED A - Targeted biopsies at hepatic flexure, biopsy (4) B - Hepatic flexure polyp, excision (1) C - Targeted biopsies at 37cm, biopsy (4) D - Targeted biopsies at 15cm, biopsy (4) E - Targeted biopsies at ano-rectal junction, biopsy (4) CLINICAL INFORMATION [id number] female with ulcerative colitis SPECIMEN PROCESSING A - Labeled/Fixative: Targeted biopsies at hepatic flexure, formalin. Quantity/Size: Two, 0.2 and 0.3 cm. Tissue Description: Soft, peters-pink tissues. Sections/Processi ng: Submitted en toto ??in 1 cassette labeled A1. B - Labeled/Fixative: Hepatic flexure polyp, formalin. Quantity/Size: Single, 0.7 x 0.7 x 0.1 cm. Tissue Description: Peters-pink strip mucosa. Sections/Processi ng: Inked, bisected and entirely submitted in 1 cassette labeled B1. C - Labeled/Fixative: Targeted biopsies at 37 cm, formalin. Quantity/Size: Two, 0.2 and 0.3 cm. Tissue Description: Soft, peters-pink tissues. Sections/Processi ng: . SPECIMEN PROCESSING Submitted en toto ??in 1 cassette labeled C1. D - Labeled/Fixative: Targeted biopsies at 15 cm, formalin. Quantity/Size: Four, ranging from 0.1-0.3 cm. Tissue Description: Soft, pink-white tissues. Sections/Processi ng: Submitted en toto ??in 1 cassette labeled D1. E - Labeled/Fixative: Targeted biopsies at anorectal junction, formalin. Quantity/Size: Four, ranging from 0.1-0.3 cm. Tissue Description: Soft, peters-pink tissues. Sections/Processi ng: Submitted en toto ??in 1 cassette labeled E1. ??nrl 09/27/2022 5:03 PM EST [facility] 09/24/2022 12:2 9 PM EST L Jose Rachel MD PATHOLOGY/CYTOLOGY O RDERABLES [facility] [place] [address] * COLONOSCOPY (09/24/2022 10:54 AM EST) COLONOSCOPY [facility] Endoscopy ___ Procedure Date: 09/24/2022 10:54 AM ? Patient Name: Kim Funes ? N: [id number] ? Date of : 1960 ? Age: 62 ? Order #: [id number] ? Instrument Name: [id number] ? ___ Procedure: ? Colonoscopy Indications: ? High risk colon cancer ? surveillance: Ulcerative colitis Patient Profile: ? This is a 62 year old female. This ? patient has ulcerative pancolitis, ? is taking ustekinumab and is ? experiencing mild symptoms. Providers: ? LBrandon Rachel MD, Oksana Mendez, ? [place] Roberto MD: ?Marcio Devlin, DO Medicines: ? Midazolam 4 mg IV, Fentanyl 150 ? micrograms IV Complications: ? No immediate [...] preparation was evaluated ? using the BBPS (Inez Bowel ? Preparation Scale) with scores of: [...] white light done throughout ? the colon. ? The left colon to 70cm had a tubular featureless ? architecture with a slightly diminished vascular ? pattern but no signs of active colitis. Targeted ? biopsies taken with a cold forceps separately from ? the anorectal junction, 15 cm within the sigmoid ? colon, and 37 cm within the sigmoid colon. ? Proximal to 70 cm the transverse and R colon were ? normal except for ill-defined granular pattern in the ? hepatic flexure. Targeted biopsies taken with a cold ? forceps. ? A 4 mm polyp was found in the hepatic flexure. The ? polyp was flat. The polyp was removed with a cold ? snare. Resection and retrieval were complete. ? The terminal ileum appeared normal. ? Moderate Sedation: ? I was present during the intraservice time as ? documented by the sedation RN. Impression: ?- Changes in the left colon more ? consistent with chronic changes of ? ulcerative colitis without signs of ? active disease. Targeted biopsies ? taken as above. ? - Targeted biopsies taken from the ? hepatic flexure. ? - One 4 mm polyp at the hepatic ? flexure, removed with a cold snare. ? Resected and retrieved. ? - The examined portion of the ileum ? was normal. Recommendation: ?- Await pathology results. ? Anticipate repeat exam in 1-2 ? years, pending pathology results. ? - Continue Stelara. ? - Follow-up in IBD Clinic. ? Attending Participation: ? I personally performed the entire procedure. ? I was present during the intraservice time as ? documented by the sedation RN. ? _ L. Jose Rachel MD 09/24/2022 12:54:56 PM Number of Addenda: 0 Note Initiated On: 09/24/2022 10:54 AM PROVATION 09/24/2022 10:5 4 AM EST Marcio Devlin DO GENERAL SURGICAL ORD ERABLES PROVATION documented in this encounter Visit Diagnoses Not on filedocumented in this encounter Administered Medications Inactive Administered Medications - up to 3 most recent administrations Medication Order MAR Action Action Date Dose Rate Site lactated ringers infusion 100 mL/hr, Intravenous, CONTINUOUS, Starting on Fri09/24/22 at 1145, Until Fri09/24/22 at 1319, Endoscopy (Day of Procedure) New Bag 09/24/2022 11:21 AM EST 100 mL/hr 100 mL/hr documented in this encounter Active and Recently Administered Medications Times are shown in EST. Continuous Medication Order 09/22/2022 09/23/2022 09/24/2022 lactated ringers infusion (CANCELED) 100 mL/hr, Intravenous, CONTINUOUS, Starting on Fri09/24/22 at 1145, Until Fri09/24/22 at 1319, Endoscopy (Day of Procedure) 1121 (New Bag - Prov ider: Oksana Mendez RN) PRN Medication Order 09/22/2022 09/23/2022 09/24/2022 fentaNYL (pf) (50 mcg/mL) multi-dose injection (CANCELED) ONCE PRN, Starting on Fri09/24/22 at 1207, Until Fri09/24/22 at 1533, Intra-Operative (Intra-Procedure), Routine 1207 (Given - Provid er: Oksana Mendez RN)1210 (Given - Provider: Oksana Mendez RN)1213 (Given - Provider: Oksana Mendez RN)1216 (Given - Provider: Oksana Mendez RN)1220 (Given - Provider: Oksana Mendez RN) midazolam (pf) (Versed) (1 mg/mL) multi-dose injection (CANCELED) ONCE PRN, Starting on Fri09/24/22 at 1207, Until Fri09/24/22 at 1533, Intra-Operative (Intra-Procedure), Routine 1207 (Given - Provid er: Oksana Mendez RN)1210 (Given - Provider: Oksana Mendez RN)1213 (Given - Provider: Oksana Mendez RN)1216 (Given - Provider: Oksana Mendez RN) documented in this encounter Care Teams Paste Worker Relationship Specialty Start Date End Date Marcio Devlin DO [address] [facility] [place] [address] PCP - General Family Medicine 11/11/17 documented as of this encounter
--- OUTSIDE RECORDS SUMMARY | 2024-04-08 02:28 | XMS_ITS | Encounter Summary ---
Author Organization [facility] [place] [address] Care Team Providers Care Entry Table Operator Name Role Phone Marcio Devlin DO Primary Care Provider [phone] Reason for Visit * Reason Comments Specialty Pharmacy Review Ustekinumab (S telara) 90mg/mL Syringe Encounter Details Date Type Department Care Team (Late st Contact Info) Description 08/06/2022 Specialty [place] [address] Alison Ortiz, [facility] Social History Tobacco Use Types Packs/Day [...] encounter Progress Notes * Alison Ortiz - 08/06/2022 11:59 PM EST The - Specialty Pharmacy has completed a benefits investigation for Kim Funes to review their eligibility to fill at - Specialty Pharmacy. Per patient's medication list they are prescribed Ustekinumab (Stelara) and the medication is not able to be filled at the - Specialty Pharmacy. Kim Funes must fill with [facility] under current insurance plan's mandate. documented in this encounter Plan of Treatment Upcoming Encounters Date Type Department Care Team (Late st Contact Info) Description 04/19/2024 10:00 AM EDT Hospital Encounter Non[place] [address] Arrived 04/29/2024 9:50 AM EDT [place] [address] Luis Alfredo Velazquez MD [facility] [place] [address] 04/29/2024 9:50 AM [place] [phone] Luis Alfredo Velazquez MD [facility] [place] [address] 06/07/2024 2:30 PM EDT TH Visit (TeleHealth) Gastroenterology at [place] [phone] Dajuan Rachel MD [facility] [place] [address] 07/02/2024 2:00 PM EDT Appointment Non-Invasive Cardiology Lab [place] [phone] Luis Alfredo Velazquez MD [facility] [place] [address] 07/02/2024 4:40 PM EDT Office Visit Cardiology at [place] [phone] Luis Alfredo Velazquez MD [facility] [place] [address] documented as of this encounter Visit Diagnoses Not on filedocumented in this encounter Care Teams Entry Table Operator Relationship Specialty Start Date End Date Marcio Devlin DO [address] [place] [address] PCP - General Family Medicine 11/11/17 documented as of this encounter
--- OUTSIDE RECORDS SUMMARY | 2024-04-08 02:28 | XMS_ITS | Encounter Summary ---
Author Organization [place] [address] Care Team Providers Care Specimen Collector Name Role Phone Marcio Devlin DO Primary Care Provider [phone] Reason for Visit * Auth/Cert (Routine) Specialty Diagnoses / Procedures Referred By Contac t Referred To Contact Diagnoses Restaging UC since changing to Stelara 03/2021 Procedures PRO COLONOSCOPY, DIAGNOSTIC COLONOSCOPY, DIAGNOSTIC Dajuan Rachel MD [facility] [place] [address] [facility] Referral ID Status Reason Start Date Expiration Date Visits Re quested Visits Authorized [id number] 1 1 Encounter Details Date Type Department Care Team (Late st Contact Info) Description 09/24/2022 11:00 AM EST - 09/24/2022 12:00 PM EST [place] [address] Dajuan Rahcel MD [facility] [place] [address] COLONOSCOPY FLEXIBLE, WITH BX (WRVU 3.56) Social [...] slept in a half-way (including now)? No 05/03/2022 Sex and Gender Information Value Date Recorded Sex Assigned at Female 07/21/2021 4:56 PM EDT Gender Identity Female 07/21/2021 4:56 PM EDT Sexual Orientation Straight 07/21/2021 4: 56 PM EDT documented as of this encounter Last Filed Vital Signs Vital Sign Reading Time Taken Comments Blood Pressure 140/70 09/24/2022 11:15 AM EST Pulse 75 09/24/2022 11:15 AM EST Temperature 36.6 ??C (97.9 ??F) 09/24/2022 11:[address] Respiratory Rate - - Oxygen Saturation 100% 09/24/2022 11:15 AM EST Inhaled Oxygen Concentration - - [...] occurs, please contact your Doctor. Please call [phone] before 8pm Mon-Fri with problems, questions or concerns. If you call after 8pm or on weekends, call the Hospital at [phone] and ask to speak to the Online Content Editor sanitation tank washer and the squeezer operator will contact that person for you. When should you call for help? Call 151 anytime you think you may need emergency [...] any problems. Where can you learn more? [facility] View your After Visit Summary and more online at [email or web address] If you would like to provide feedback about your hospital experience, please call the Office of Patient and Family Relations at . If you have received this After Visit Summary in error, please immediately return it in person to the department, or notify the [facility] Privacy Office by calling toll free at between the hours of 8AM and 5PM to arrange for our retrieval of the documents at no cost to you. Content Version: 12.2 ?? [id number] [employer]. Care instructions adapted under license by [facility]. If you have questions about a medical condition or this instruction, always ask your healthcare professional. [employer] disclaims any warranty or liability for [...] by mouth daily. SUMAtriptan (IMITREX) 20 mg/actuation [place], Non-Aerosol 1 spray as needed. 11/03/2017 metFORMIN [...] - 09/24/2022 1:32 PM EST Kim Funes [address] [place] [phone] October 20, 2022 Dear : Biopsies taken [...] concerns or questions. Sincerely, Freddy Rachel MD Ranch Hand Livestockpatrol agent Co-Director, [facility] Section of Gastroenterology [place] [address] CC: Marcio Devlin DO [address] [place] [id number] documented in this encounter H&P Notes * [...] AM EDT Hospital Encounter Non-[place] [phone] Arrived 04/29/2024 9:50 [place] [address] Luis Alfredo Velazquez MD [facility] [place] [address] 04/29/2024 9:50 [place] [address] Luis Alfredo Velazquez MD [facility] [place] [place] [address] 06/07/2024 2:30 PM EDT TH Visit (TeleHealth) [place] [address] Dajuan Rachel MD [facility] DR GASTRO[place] [address] 07/02/2024 2:00 PM EDT Appointment Non-[place] [address] Luis Alfredo Velazquez MD [facility] [place] [address] 07/02/2024 4:40 PM EDT Office Visit Cardiology at [address] [phone] Luis Alfredo Velazquez MD [facility] [place] [address] documented as of this encounter Procedures Procedure Name Priority Date/Time Associated Diagnosis Comments SPECIMEN TO PATHOLOGY Routine 09/24/2022 12:43 PM EST SPECIMEN TO PATHOLOGY Routine 09/24/2022 12:43 PM EST SPECIMEN TO PATHOLOGY Routine 09/24/2022 12:43 PM EST SPECIMEN TO PATHOLOGY Routine 09/24/2022 12:43 PM EST SPECIMEN TO PATHOLOGY Routine 09/24/2022 12:43 PM EST SURGICAL PATHOLOGY REPORT Routine 09/24/2022 12:29 PM EST Colonoscopy, Remv Estela, Snare ([id number]) 09/24/2022 12:05 PM EST Ulcerative pancolitis with complication Colonoscopy, Biopsy ([id number]) 09/24/2022 12:05 PM EST Ulcerative pancolitis with complication COLONOSCOPY Routine 09/24/2022 10:54 AM EST documented in this encounter Results * Specimen to Pathology (09/24/2022 12:43 PM EST) AP Specimen 09/24/2022 12:4 3 PM EST 09/24/2022 12:43 PM EST Narrative [facility] - 09/24/2022 12:43 PM EST Specimen requisition ordered. ??Separate Pathology report to follow L Jose Rachel MD PATHOLOGY/CYTOLOGY O IRMA Performing Organization Address City/[facility]/[place] [address] * Specimen to Pathology (09/24/2022 12:43 PM EST) AP Specimen 09/24/2022 12:4 3 PM EST 09/24/2022 12:43 PM EST Narrative [facility] - 09/24/2022 12:43 PM EST Specimen requisition ordered. ??Separate Pathology report to follow L Jose Rachel MD PATHOLOGY/CYTOLOGY O IRMA Performing Organization Address City/[facility]/ZIP Co de Phone Number [facility] [place] [address] * Specimen to Pathology (09/24/2022 12:43 PM EST) AP Specimen 09/24/2022 12:4 3 PM EST 09/24/2022 12:43 PM EST Narrative [facility] - 09/24/2022 12:43 PM EST Specimen requisition ordered. ??Separate Pathology report to follow L Jose Rachel MD PATHOLOGY/CYTOLOGY O IRMA [facility] [place] [address] * Specimen to Pathology (09/24/2022 12:43 PM EST) AP Specimen 09/24/2022 12:4 3 PM EST 09/24/2022 12:43 PM EST Narrative [facility] - 09/24/2022 12:43 PM EST Specimen requisition ordered. ??Separate Pathology report to follow L Jose Rachel MD PATHOLOGY/CYTOLOGY O IRMA Performing Organization Address [facility] [place] [place] [address] * Specimen to Pathology (09/24/2022 12:43 PM EST) AP Specimen 09/24/2022 12:4 3 PM EST 09/24/2022 12:43 PM EST Narrative [facility] - 09/24/2022 12:43 PM EST Specimen requisition ordered. ??Separate Pathology report to follow L Jose Rachel MD PATHOLOGY/CYTOLOGY O IRMA Performing Organization Address [facility] Co de Phone Number [facility] [place] [address] * Surgical Pathology Report (09/24/2022 12:29 PM EST) FINAL DIAGNOSIS (AP) [id number] ? Location: 4; [facility]; A The signing pathologist has (i) examined [...] MD Verified: ??09/27/2022 17:03 ??Pathologist Performed at: ??-[facility] Dept. of Pathology, [place] [address] Investigator Narcotics: Dg Brown MD, FCAP, ??CLIA Certificate: [id number] SPECIMEN(S) SUBMITTED A - Targeted biopsies at hepatic flexure, biopsy (4) B - Hepatic flexure polyp, excision (1) C - Targeted biopsies at 37cm, biopsy (4) D - Targeted biopsies at 15cm, biopsy (4) E - Targeted biopsies at ano-rectal junction, biopsy (4) CLINICAL INFORMATION 232-eigz-byy female with ulcerative colitis SPECIMEN PROCESSING A [...] labeled E1. ??nrl 09/27/2022 5:03 PM EST [facility] 09/24/2022 12:2 9 PM EST L Jose Rachel MD PATHOLOGY/CYTOLOGY O RDERADARLEEN [facility] [place] [address] * COLONOSCOPY (09/24/2022 10:54 AM EST) COLONOSCOPY [facility] Endoscopy ___ Procedure Date: 09/24/2022 10:54 AM ? Patient Name: Kim Funes ? N: [id number] ? Date of : 1960 ? Age: 62 ? Order #: [id number] ? Instrument Name: [id number]- [id number] ? ___ Procedure: ? Colonoscopy Indications: ? High risk colon cancer ? surveillance: Ulcerative colitis Patient Profile: ? This is a 62 year old female. This ? patient has ulcerative pancolitis, ? is taking ustekinumab and is ? experiencing mild symptoms. Providers: ? LBrandon Rachel MD, Oksana Mendez, ? [place] Shah Referring : ?Marcio Devlin, DO Medicines: ? Midazolam 4 [...] preparation was evaluated ? using the BBPS (Belcher Bowel ? Preparation Scale) with scores of: [...] Site fentaNYL (pf) (50 mcg/mL) multi-dose injection ONCE PRN, Starting on Fri09/24/22 at 1207, Until Fri09/24/22 at 1533, Intra-Operative (Intra-Procedure), Routine Given 09/24/2022 12:20 PM EST 25 mcg Given 09/24/2022 12:16 PM EST 25 mcg Given 09/24/2022 12:13 PM EST 25 mcg lactated ringers infusion 100 mL/hr, Intravenous, CONTINUOUS, Starting on Fri09/24/22 at 1145, Until Fri09/24/22 at 1319, Endoscopy (Day of Procedure) New Bag 09/24/2022 11:21 AM EST 100 mL/hr 100 mL/hr midazolam (pf) (Versed) (1 mg/mL) multi-dose injection ONCE PRN, Starting on Fri09/24/22 at 1207, Until Fri09/24/22 at 1533, Intra-Operative (Intra-Procedure), Routine Given 09/24/2022 12:16 PM EST 1 mg Given 09/24/2022 12:13 PM EST 1 mg Given 09/24/2022 12:10 PM EST 1 mg documented in this [...] Provider: Oksana Mendez RN)1220 (Given - Provider: kOsana Mendez RN) midazolam (pf) (Versed) (1 mg/mL) multi-dose injection (CANCELED) ONCE PRN, Starting on Fri09/24/22 at 1207, Until Fri09/24/22 at 1533, Intra-Operative (Intra-Procedure), Routine 1207 (Given - Provid er: Oksana Mendez RN)1210 (Given - Provider: Oksana Mendez RN)1213 (Given - Provider: Oksana Mendez RN)1216 (Given - Provider: Oksana Mendez RN) documented in this encounter Care Teams Specimen Collector Relationship Specialty Start Date End Date Marcio Devlin DO [address] [place] [address] PCP - General Family Medicine 11/11/17 documented as of this encounter
--- OUTSIDE RECORDS SUMMARY | 2024-04-08 02:28 | XMS_ITS | Encounter Summary ---
Author Organization [facility] [place] [address] Care Team Providers Care Police Captain Name Role Phone Marcio Devlin DO Primary Care Provider [phone] Encounter Details Date Type Department Care Team (Late st Contact Info) Description 05/15/2022 Orders [place] [phone] Rachelle Acevedo, RN Ulcerative pancolitis with complication Social History Tobacco [...] No 05/03/2022 Housing Stability Vital Sign Answer Pelno e Recorded In the last 12 months, [...] in a group home (including now)? No 05/03/2022 Sex and [...] AM EDT Hospital Encounter Non-Invasive [place] [address] Arrived 04/29/2024 9:50 AM EDT Appointment MRI at [place] [phone] Luis Alfredo Velazquez MD [facility] [place] [address] 04/29/2024 9:50 AM [place] [phone] Luis Alfredo Velazquez MD [facility] [place] [address] 06/07/2024 2:30 PM EDT TH Visit (TeleHealth) Gastroenterology at [place] [phone] Dajuan Rachel MD [facility] DR [place] [address] 07/02/2024 2:00 PM EDT Appointment Non-Invasive [place] [phone] Luis Alfredo Velazquez MD [facility] [place] [address] 07/02/2024 4:40 PM EDT Office Visit Cardiology at [address] [phone] Luis Alfredo Velazquez MD [facility] [place] [address] documented as of this encounter Visit Diagnoses Diagnosis Ulcerative pancolitis with complication documented in this encounter Care Teams Police Captain Relationship Specialty Start Date End Date Marcio Devlin DO [address] [place], [place] [address] [address] PCP - General Family Medicine 11/11/17 documented as of this encounter
--- OUTSIDE RECORDS SUMMARY | 2024-04-08 02:28 | XMS_ITS | Encounter Summary ---
Author Organization [facility] [place] [address] Care Team Providers Care Admissions Counselor Name Role Phone Marcio Devlin DO Primary Care Provider [phone] Encounter Details Date Type Department Care Team (Late st Contact Info) Description 05/07/2022 4:00 PM EDT Ancillary Procedure Radiology XRay at [facility] [address] [place] [phone] Jorje Marquez DO [address] [place] [address] Chronic bilateral low back pain without sciatica; Ankylosing spondylitis of multiple sites in spine; Chronic bilateral thoracic back pain Social History Tobacco Use Types Packs/Day Years [...] AM EDT Hospital Encounter [place] [address] Arrived 04/29/2024 9:50 AM [place] [address] Luis Alfredo Velazquez MD [facility] [place] [address] 04/29/2024 9:50 AM [place] [phone] Luis Alfredo Velazquez MD [facility] [place] [address] 06/07/2024 2:30 PM EDT TH Visit (TeleHealth) [place] [address] Dajuan Rachel MD [facility] [place] [address] 07/02/2024 2:00 PM EDT Appointment [place] [phone] Luis Alfredo Velazquez MD [facility] [place] [address] 07/02/2024 4:40 PM EDT Office Visit Cardiology at [address] [phone] Luis Alfredo Velazquez MD [facility] [place] [address] documented as of this encounter Procedures Procedure Name Priority Date/Time Associated Diagnosis Comments XR LUMBAR SPINE 2 OR 3 VIEWS Routine 05/07/2022 4:08 PM EDT Chronic bilateral low back pain without sciatica Ankylosing spondylitis of multiple sites in spine XR THORACIC SPINE 2 VIEW INCLUDING SWIMMERS VIEW Routine 05/07/2022 4:08 PM EDT Chronic bilateral thoracic back pain Ankylosing spondylitis of multiple sites in spine documented in this encounter Results * XR Thoracic Spine 2 View Including Swimmers View (05/07/2022 4:08 PM EDT) Anatomical Region Laterality Modality N/A Digital Radiogra phy Impressions 05/07/2022 4:15 PM EDT No acute pathology. No ankylosis. Mild degenerative disc disease. Thank you for letting us participate in the care of this patient. ??If you are a health care provider and have any questions regarding this report, please contact the number below. ??For patients who have questions please contact the health acute care nurse that requested your imaging first. ? Narrative 05/07/2022 4:15 PM EDT EXAMINATION: XR THORACIC SPINE 2 VIEW INCLUDING SWIMMERS VIEW CLINICAL HISTORY: chronic thoracic back pain hx ankylosing spondylitis TECHNIQUE: Thoracic spine AP, lateral and swimmer's COMPARISON: None FINDINGS: There is no fracture or malalignment. Very slight narrowing is seen in the lower thoracic disc interspaces. No vertebral body ankylosis is detected. Facet arthropathy is visible in the lower cervical spine. Procedure Note Nba Alberts MD - 05/07/2022 EXAMINATION: XR THORACIC SPINE 2 VIEW INCLUDING SWIMMERS VIEW CLINICAL HISTORY: chronic thoracic back pain hx ankylosing spondylitis TECHNIQUE: Thoracic spine AP, lateral and swimmer's COMPARISON: None FINDINGS: There is no fracture or malalignment. Very slight narrowing is seen in the lower thoracic disc interspaces. No vertebral body ankylosis is detected. Facet arthropathy is visible in the lower cervical spine. IMPRESSION No acute pathology. No ankylosis. Mild degenerative disc disease. Thank you for letting us participate in the care of this patient. If youare a health care provider and have any questions regarding this report,please contact the number below. For patients who have questions please contactthe health acute care nurse that requested your imaging first. Jorje Marquez DO IMG DX ORDERABLES * XR Lumbar Spine 2 Or 3 Views (Generic) (05/07/2022 4:08 PM EDT) Anatomical Region Laterality Modality L-spine N/A Digital Radiogra phy Impressions 05/07/2022 4:22 PM EDT Very mild degenerative disc disease L5-S1 is unchanged. No vertebral body ankylosis. Ankylosis of the sacroiliac joints is consistent with a history of ankylosing spondylitis. Osteoarthritis of the right hip. Thank you for letting us participate in the care of this patient. ??If you are a health care provider and have any questions regarding this report, please contact the number below. ??For patients who have questions please contact the health acute care nurse that requested your imaging first. ? Narrative 05/07/2022 4:22 PM EDT EXAMINATION: XR LUMBAR SPINE 2 OR 3 VIEWS (GENERIC) CLINICAL HISTORY: chronic low back pain hx ankylosing spondylitis TECHNIQUE: Lumbar spine AP and lateral COMPARISON: August 24, 2015 FINDINGS: There are five byw-fqv-horynya lumbar-type vertebrae. The osseous structures are diffusely demineralized. No fracture or malalignment is seen. Slight narrowing of L5-S1 is unchanged. There is no vertebral body ankylosis. Again seen is ankylosis of the sacroiliac joints. The right hip joint is narrowed. A left hip prosthesis is partially visible. Procedure Note Nba Alberts MD - 05/07/2022 EXAMINATION: XR LUMBAR SPINE 2 OR 3 VIEWS (GENERIC) CLINICAL HISTORY: chronic low back pain hx ankylosing spondylitis TECHNIQUE: Lumbar spine AP and lateral COMPARISON: August 24, 2015 FINDINGS: There are five zco-xlv-wolyfoo lumbar-type vertebrae. The osseous structures are diffusely demineralized. No fracture or malalignment is seen. Slight narrowing of L5-S1 isunchanged. There is no vertebral body ankylosis. Again seen is ankylosis of the sacroiliac joints. The right hip joint is narrowed. A left hip prosthesis is partially visible. IMPRESSION Very mild degenerative disc disease L5-S1 is unchanged. No vertebral body ankylosis. Ankylosis of the sacroiliac joints is consistent with a history ofankylosing spondylitis. Osteoarthritis of the right hip. Thank you for letting us participate in the care of this patient. If youare a health care provider and have any questions regarding this report,please contact the number below. For patients who have questions please contactthe health acute care nurse that requested your imaging first. Jorje Marquez DO IMG DX ORDERABLES documented in this encounter Visit Diagnoses Diagnosis Chronic bilateral low back pain without sciatica Ankylosing spondylitis of multiple sites in spine Ankylosing spondylitis Chronic bilateral thoracic back pain documented in this encounter Care Teams Admissions Counselor Relationship Specialty Start Date End Date Marcio Devlin DO [address] [place] [address] PCP - General Family Medicine 11/11/17 documented as of this encounter
--- OUTSIDE RECORDS SUMMARY | 2024-04-08 02:28 | XMS_ITS | Encounter Summary ---
[place] [address] Care Team Providers Care Cooker Meal Name Role Phone Marcio Devlin DO Primary Care Provider [phone] Reason for Visit * Reason Comments Prior Authorization Stelara 90mg/ml SOSY Encounter Details Date Type Department Care Team (Late st Contact Info) Description 01/22/2022 Specialty [place] [phone] Tiff Anglin CPHT Social History Tobacco Use Types Packs/Day Years [...] as of this encounter Progress Notes * Tiff Anglin CPHT - 01/22/2022 9:23 AM EDT [facility], Medication Prior Authorization Submission Patient: Kim Graff Shantel Patient : 1960 Patient Address: [address] [place] [address] (home) Medication Name: STELARA 90 MG/ML SUBCUTANEOUS SYRINGE Medication ID: [id number] Subscriber Insurance: [place] ([facility]) Subscriber Insurance Comment: Phone: [phone] Fax: Physician: Dajuan BERRY Physician Comment: Sent Via: Fax Truong: Ref/Case/PA#: [id number] Medication Strength Frequency Requested: Stelara 90mg/ml SOSY. Inject the contents of one syringe (90mg) subcutaneously once every 8 weeks Qty/Day Supply: New Start: Renewal Diagnosis & ICD-10 Code: K51.90 Patient Notified: No Submission Notes: RX#[id number] PA sent through [employer]. Tiff Anglin CPHT 01/22/22 9:30 AM documented in this encounter Plan of Treatment Upcoming Encounters Date Type Department Care Team (Late st Contact Info) Description 04/19/2024 10:00 AM EDT Hospital Encounter Non-Invasive [place] [phone] Arrived 04/29/2024 9:50 AM [place] [phone] Luis Alfredo Velazquez MD [facility] [place] [address] 04/29/2024 9:50 [place] [phone] Luis Alfredo Velazquez MD [facility] [place] [address] 06/07/2024 2:30 PM EDT TH Visit (TeleHealth) [place] [phone] Dajuan Berry MD [facility] [place] [address] 07/02/2024 2:00 PM EDT Appointment Non-Invasive [place] [address] Luis Alfredo Velazquez MD [facility] [place] [address] 07/02/2024 4:40 PM EDT Office Visit Cardiology at [address] [phone] Luis Alfredo Velazquez MD [facility] [place] [address] documented as of this encounter Visit Diagnoses Not on filedocumented in this encounter Care Teams Cooker Meal Relationship Specialty Start Date End Date Marcio Devlin DO [address] [place], [place] [address] [place] [address] PCP - General Family Medicine 11/11/17 documented as of this encounter
--- OUTSIDE RECORDS SUMMARY | 2024-04-08 02:28 | XMS_ITS | Encounter Summary ---
Author Organization [facility] [place] [address] Care Team Providers Care Chemist Helper Name Role Phone Marcio Devlin DO Primary Care Provider [phone] Reason for Visit * Reason Onset Date Comments Medication Refill 02/28/2022 Encounter Details Date Type Department Care Team (Late st Contact Info) Description 02/28/2022 Refill [place] [address] Dajuan Rachel MD [facility] [place] [address] Ulcerative pancolitis without complication Social History Tobacco [...] AM EDT Hospital Encounter Non-Invasive [place] [address] Arrived 04/29/2024 9:50 AM EDT Appointment MRI at [place] [address] Luis Alfredo Velazquez MD [facility] [place] [address] 04/29/2024 9:50 AM EDT Appointment MRI at [place] [address] Luis Alfredo Velazquez MD [facility] [place] [address] 06/07/2024 2:30 PM EDT TH Visit (TeleHealth) Gastroenterology at [place] [address] Dajuan Rachel MD [facility] [place] [address] 07/02/2024 2:00 PM EDT Appointment Non-Invasive Cardiology Lab [address] Luis Alfredo Velazquez MD [facility] [place] [address] 07/02/2024 4:40 PM EDT Office Visit Cardiology at [place] [phone] Luis Alfredo Velazquez MD [facility] [place] [address] documented as of this encounter Visit Diagnoses Diagnosis Ulcerative pancolitis without complication documented in this encounter Care Teams Chemist Helper Relationship Specialty Start Date End Date Marcio Devlin DO [address] [place] [address] PCP - General Family Medicine 11/11/17 documented as of this encounter
--- OUTSIDE RECORDS SUMMARY | 2024-04-08 02:28 | XMS_ITS | Encounter Summary ---
Author Organization [facility] [place] [address] Care Team Providers Care Circle Beveler Name Role Phone Marcio Devlin DO Primary Care Provider [phone] Encounter Details Date Type Department Care Team (Late st Contact Info) Description 08/05/2022 [place]phone [place] [address] María Elena Jean, MA Social [...] Encounter - María Elena Jean RMA - 08/05/2022 10:59 AM EST Called patient for pre-charting, no answer. TR TRACI documented in this encounter Plan of Treatment Upcoming Encounters Date Type Department Care Team (Late st Contact Info) Description 04/19/2024 10:00 AM EDT Hospital Encounter Non-[place]vasive [place] [phone] Arrived 04/29/2024 9:50 [place] [phone] Luis Alfredo Velazquez MD [facility] [address] 04/29/2024 9:50 [place] [phone] Luis Alfredo Velazquez MD [facility] [place] [address] 06/07/2024 2:30 PM EDT TH Visit (TeleHealth) Gastroenterology at [place] [phone] Dajuan Rachel MD [facility] [place] [address] 07/02/2024 2:00 PM EDT Appointment [place] [address] Luis Alfredo Velazquez MD [facility] [place] [address] 07/02/2024 4:40 PM EDT Office Visit Cardiology at [address] [phone] Luis Alfredo Velazquez MD [facility] [place] [address] documented as of this encounter Visit Diagnoses Not on filedocumented in this encounter Care Teams Circle Beveler Relationship Specialty Start Date End Date Marcio Devlin DO [address] [place] [address] PCP - General Family Medicine 11/11/17 documented as of this encounter
--- OUTSIDE RECORDS SUMMARY | 2024-04-08 02:28 | XMS_ITS | Encounter Summary ---
Author Organization [facility] Address [facility] [place] [address] Care Team Providers Care Sales Promotion Officer Name Role Phone Marcio Devlin DO Primary Care Provider [phone] Reason for Visit * Reason Comments Back Pain Back and neck pain * Consultation (Routine) - Closed Specialty Diagnoses / Procedures Referred By Contlyn t Referred To Contact Pain Management Diagnoses Chronic left hip pain Ankylosing spondylitis of cervical region Neck pain Gabe Fong MD [facility] [place] [address] Jorje Marquez [address] [address] Referral ID Status Reason Start Date Expiration Date V isits Requested Visits Authorized [id number] Closed Consult, Test & Treat 03/22/2022 03/22/2023 1 1 Encounter Details Date Type Department Care Team (Late st Contact Info) Description 05/07/2022 3:00 PM EDT Office Visit Pain Management at [address] [phone] Jorje Marquez [address] [address] Chronic neck pain; Chronic bilateral thoracic back pain; Chronic bilateral low back pain without [...] Sign Reading Time Taken Comments Blood Pressure 146/80 05/07/2022 2:52 PM EDT Pulse 67 05/07/2022 2:52 PM EDT Temperature - - Respiratory Rate - - Oxygen Saturation 97% 05/07/2022 2:52 PM EDT Inhaled Oxygen Concentration - - Weight 77.1 kg (170 lb) 05/07/2022 2:52 PM EDT Height 165.1 cm (5' 5) 05/07/2022 2:52 PM EDT Body Mass Index 28.29 05/07/2022 2:52 PM EDT documented in this encounter Progress Notes * Jorje Marquez, DO - 05/07/2022 3:00 PM EDT Pain Clinic Initial Consultation Note DOS: 05/07/22 : 1960 Kim Funes is a 62 y.o. year old female with a PMH including ulcerative colitis, ankylosingspondylitis, on Stelara, dyslipidemia, Osteopenia who presents to the pain clinic today at the referral of Gabe Fong MD [facility] [place] [address] for consultation regarding neck and back pain. CC: Chief Complaint Patient presents with ??? Back Pain Back and neck pain HPI: Kim Funes prefers to be called [...] She has been through physical therapy in [facility] for left hip pain but [...] of ultrasound-guided trigger point injections. Pain Description: Onset/Duration - several years, worse since switching [...] - neg Numbness/Tingling - neg Pain score: 7/10 today,9 /10 at worst, 4/10 at best, 7/10 on average (all in past week) Aggravating factors: lifting aggravates back pain, prolonged standing, bending over, Alleviating factors: arthritis tylenol, heating pad Prior Treatments/Medications (Per prior notes and patient): Medications : Topicals - icy hot NSAIDs - allergic Acetaminophen - tylenol arthritis 2 tab in am and pm Antidepressants - none Antieptileptics - none Muscle Relaxants - has tried in the past but can't remember what they were Opioids - none Steroids - none PT: not recently Modalities: heat Surgery: none Injections: none Chiropractic: none Acupuncture: none Mental Health: none ROS: Constitutional: No unintentional weight loss or gain, [...] Neurologic: No numbness/tingling. No difficulty with balance. Mild SANTANA typical of chronic Psychiatric: Mood ok. No SI/HI. Sleep is [...] disease Colonoscopy 09/19/08 (Dr. Shady Luz at [facility]) for surveillance for dysplasia. Areas of [...] WITH BX performed by YAQUELIN ESTRADA at [facility] ENDOSCOPY ??? PRO COLONOSCOPY, BIOPSY N/A 03/04/2017 COLONOSCOPY FLEXIBLE, WITH BX (WRVU 3.66) performed by Raúl Austin MD at [facility] ENDOSCOPY ??? PRO COLONOSCOPY, BIOPSY N/A 11/09/2019 COLONOSCOPY FLEXIBLE, WITH BX (WRVU 3.66) performed by Froilan Sahni MD at [facility] ENDOSCOPY ??? PRO COLONOSCOPY, BIOPSY N/A 12/19/2020 COLONOSCOPY FLEXIBLE, WITH BX (WRVU 3.66) performed by Dajuan Rachel MD at [facility] ENDOSCOPY ??? PRO COLONOSCOPY, DIAGNOSTIC N/A 11/09/2019 COLONOSCOPY, DIAGNOSTIC performed by Froilan Sahni MD at [facility] ENDOSCOPY ??? PRO COLONOSCOPY, REMV LESN, SNARE 01/02/2011 COLONOSCOPY, POLYPECTOMY, REMOVAL LESION BY SNARE performed by YAQUELIN ESTRADA at [facility] ENDOSCOPY ??? PRO COLONOSCOPY, REMV LESN, SNARE N/A 03/04/2017 COLONOSCOPY, POLYPECTOMY, REMOVAL LESION BY SNARE (WRVU 4.67) performed by Raúl Austin MD at [facility] ENDOSCOPY ??? PRO COMBINED ANT/POST COLPORRHAPHY N/A 03/10/2018 COLPORRHAPHY ANTERIOR-POSTERIOR; INC CYSTOURETHROSCOPY (WRVU 14.44) performed by Liang Fong MD at [facility] MAIN OR ??? PRO REVAGINAL PROLAPSE, UTEROSACRAL N/A 03/10/2018 COLPOPEXY, VAGINAL, INTRAPERITONEAL APPROACH (WRVU 11.66) [facility] ??? PRO SLING OPER STRES INCONTINENCE N/A 03/10/2018 URETHRAL SUSPENSION, SLING\FASCIA OR SYNTHETIC (WRVU 12.13) performed by Liang Fong MD at [facility] MAIN OR ??? PRO VAG HYST, RMV TUBE/OVARY N/A 03/10/2018 HYSTERECTOMY, VAGINAL, REMOVAL TUBE(S) & OR OVARY(S) (WRVU 15.94) performed by Liang Fong MD at [facility] MAIN OR ??? SALPINGECTOMY ??? XR FLUORO INJECTION DRAINAGE JOINT LG RIGHT Right 03/09/2019 XR Fluoro Guided Joint Injection Large Right 03/09/2019 [facility] RAD XRAY FAMILY HISTORY: Family History Problem Relation Age of Onset ??? Hypertension Mother ??? Heart Disease Mother ??? Diabetes Mother ??? Heart Disease Father ??? Cancer Father Lung SOCIAL HISTORY: Tobacco : none Alcohol : rare Recreational drug use : Work : [employer] at [employer] Home : lives in [facility] with Hobbies : fishing, CATASYSing FUNCTIONAL STATUS: Independent in all ADLs. MEDICATIONS: Current Outpatient Medications: ??? meclizine (Antivert) 25 mg Tablet, TAKE ONE TABLET BY MOUTH TWICE A DAY NEEDED FOR DIZZINESS, Disp: , Rfl: ??? loratadine (Claritin) 10 mg Tablet, Take by mouth., Disp: , Rfl: ??? Calcium Carbonate-Vitamin D3 500 mg-10 mcg (400 unit) Tablet, Take by mouth., Disp: , Rfl: ??? ustekinumab (Stelara) 90 mg/mL subcutaneous injection, [...] , Rfl: ??? SUMAtriptan (IMITREX) 20 mg/actuation [place], Non-Aerosol, 1 spray as needed., Disp: , [...] And Vomiting Nausea/Vomiting, Patient reported PHYSICAL EXAM: Patient declined moisture tester today BP 146/80 (BP Location (NBP): Left arm, Patient Position: Standing, BP Cuff Sizes: Adult (25-34 cm)) Pulse 67 Ht 165.1 cm (5' 5) Wt 77.1 kg (170 lb) SpO2 97% BMI 28.29 kg/m?? General: Patient is seated comfortably in NAD, [...] -no midline tenderness in the cervical spine, lower cervical paraspinal tenderness, significant tenderness and hypertonicity in the upper trapezius bilateral, mild midline tenderness in thethoracic and lumbar spine diffusely, bilateral thoracic and lumbar paraspinal tenderness, tenderness along bilateral medial scapular borders, no significant PSIS tenderness ROM -cervical range of motion quite limited in all planes, mild restriction with flexion extension of the thoracolumbar spine, range of motion of bilateral hips is essentially symmetric she does havesome mild restriction with internal rotation of the right hip compared to the left. Special tests - SLR b/l -negative bilateral Slump test -negative Facet joint loading (Kemps) -positive cervical and lumbar ZACHERY -negative FADIR -negative Stinchfield -negative Gaenslen's -negative Yordy's Finger -negative Thrust -negative Neurologic: Reflexes - 2/4 and symmetric in bilateral biceps, triceps, brachioradiali, 2/4 patellae, and 0/4 Achilles. No ankle clonus. Babinkski downgoing bilaterally, Neg. Lynne Motor -5/5 upper extremity bilateral including shoulder abduction/adduction, elbow flexion/extension, wrist flexion/extension, rail tractor operator strength, finger abduction, thumb to index opposition [...] UC reduced ROM on sterlar medication failure ? TECHNIQUE: MRI of the cervical spine performed [...] Similar facet osteoarthropathy from C4 to T1. A/P: Encounter Diagnoses Name Primary? Chronic neck pain ??? Chronic bilateral thoracic back pain ??? Chronic bilateral low back pain [...] no cord signal abnormality. Reassuring neurological examination. #2 chronic axial thoracic pain, again likely multifactorial in this patient with ankylosing spondylitis, consider thoracic ankylosis, consider underlying degenerative spondylosis, also there seems amos a myofascial component as well. #3 chronic axial low back pain, again [...] immunosuppression no other red flag symptoms identified. #4 chronic pain syndrome, consider component of [...] better manage his/her pain. 1. Physical Therapy: Discussed possibility of referral to formal physical therapy, I do think she would benefit from working on posture as well as a strengthening program. She would like to hold off on this for now. 2. Clinical Health Psychologist to address issues of relaxation, behavioral change, coping style, and other factors important to improvement: We will consider referral to the active pain care servicein the future. 3. Self Care Recommendations: Encouraged her to continue regular low impact cardiovascular exercise, recommended walking 30 minutes a day. Continue ice and heat therapy. Recommended trial of TENS unit for myofascial pain. Continue to maintain a healthy body weight. 4. Diagnostic Studies: We will go ahead and check thoracic and lumbar spine x- rays today given long-term thoracic and lumbar pain in the setting of ankylosing spondylitis. 5. Medication Management: Medications currently being managed by Dr. Fong rheumatology. Reportedlythey are working on trying to get a regimen of rheumatologic medications to help balance the treatment of her ulcerative colitis and ankylosing spondylitis. We will go ahead and had cyclobenzaprine to use on a as needed basis to see if this helps with myofascial type pain. Will prescribe her 5 mg tablets to take every 8 hours as needed. I discussed with her that these should be used as needed forsevere pain. We will go ahead and prescribe her #30 to use with 1 refill. Discussed risk associatedwith cyclobenzaprine including dry mouth, dizziness fatigue lightheadedness. 6. Further procedures recommended: Discussed for the past with ultrasound-guided trigger point injections as this was suggested by Dr. Fong of rheumatology. I think this to be quite appropriate and may be helpful with her myofascial piece of her pain. I would recommend using ultrasound in the setting to decrease risk of pneumothorax. At this point patient would like to hold off on his injections but will consider this in the future. 7. Referrals: No referrals provided today. 8. Release of information: We will send today's note to Dr. Fong referring provider and patient's primary care provider. 9. Follow up: Patient to follow-up in 6 to 8 weeks, call earlier for worsening symptoms. Thank you for allowing us the opportunity to participate in ...'s care. Jorje Marquez DO Pain Corporate Travel Manager Professor of Anesthesiology [employer] [employer] CC: Gabe Fong MD [facility] [place] [address] documented in this encounter Plan of Treatment Upcoming Encounters Date Type Department Care Team (Late st Contact Info) Description 04/19/2024 10:00 AM EDT Hospital Encounter Non-Invasive [place] [phone] Arrived 04/29/2024 9:50 AM EDT [place] [address] Luis Alfredo Velazquez MD [facility] [place] [address] 04/29/2024 9:50 AM EDT [place] [address] Luis Alfredo Velazquez MD [facility] [place] [address] 06/07/2024 2:30 PM EDT TH Visit (TeleHealth) [place] [address] Dajuan Racehl MD [facility] [place] [address] 07/02/2024 2:00 PM EDT Appointment Non-[place]vasive [place] [phone] Luis Alfredo Velazquez MD [facility] [place] [address] 07/02/2024 4:40 PM EDT Office Visit Cardiology at [address] [place] [address] Luis Alfredo Velazquez MD [facility] [place] [address] documented as of this encounter Results * XR Thoracic Spine [...] who have questions please contact the health medical care evaluation specialist that requested your imaging first. ? Narrative [...] patients who have questions please contactthe health medical care evaluation specialist that requested your imaging first. Jorje Marquez [...] who have questions please contact the health medical care evaluation specialist that requested your imaging first. ? Narrative 05/07/2022 4:22 PM EDT EXAMINATION: XR LUMBAR SPINE 2 OR 3 VIEWS (GENERIC) CLINICAL HISTORY: chronic low back pain hx ankylosing spondylitis TECHNIQUE: Lumbar spine AP and lateral COMPARISON: August 24, 2015 FINDINGS: There are five [id number] lumbar-type vertebrae. The osseous structures are diffusely [...] August 24, 2015 FINDINGS: There are five [id number] lumbar-type vertebrae. The osseous structures are diffusely [...] patients who have questions please contactthe health medical care evaluation specialist that requested your imaging first. Jorje ONEAL DX ORDERABLES documented in this encounter Visit Diagnoses Diagnosis Chronic neck pain Cervicalgia Chronic bilateral thoracic back pain Chronic bilateral low back pain without sciatica Ankylosing spondylitis of multiple sites in spine Ankylosing spondylitis Chronic bilateral low back pain without sciatica Ankylosing spondylitis of multiple sites in spine Ankylosing spondylitis Chronic bilateral thoracic back pain documented in this encounter Care Teams Sales Promotion Officer Relationship Specialty Start Date End Date Marcio Devlin DO [address] [place] [address] PCP - General Family Medicine 11/11/17 documented as of this encounter
--- OUTSIDE RECORDS SUMMARY | 2024-04-08 02:28 | XMS_ITS | Encounter Summary ---
Author Organization [facility] [place] [address] Care Team Providers Care Sewing Machine Bobbin Winder Name Role Phone Marcio Devlin DO Primary Care Provider [phone] Reason for Visit * Reason Comments Specialty Pharmacy Review Ustekinumab (S telara) 90mg/mL Syringe Encounter Details Date Type Department Care Team (Late st Contact Info) Description 03/22/2022 Specialty [place] [phone] Alison Ortiz, [facility] Social History Tobacco Use Types Packs/Day Years [...] encounter Progress Notes * Alison Ortiz - 03/22/2022 11:59 PM EDT [facility] has completed a benefits investigation for Kim Funes to review their eligibility to fill at [facility]. Per patient's medication list they are prescribed Ustekinumab (Stelara) and the medication is not able to be filled at the [facility]. Kim Funes must fill with [facility] under current insurance plan's mandate. documented in this encounter Plan of Treatment Upcoming Encounters Date Type Department Care Team (Late st Contact Info) Description 04/19/2024 10:00 AM EDT Hospital Encounter Non-Invasive Cardiology Lab [place] [phone] Arrived 04/29/2024 9:50 AM EDT Appointment MRI at [address] Luis Alfredo Velazquez MD [facility] [place] [address] 04/29/2024 9:50 AM EDT Appointment MRI at [place] [phone] Luis Alfredo Velazquez MD [facility] [place] [address] 06/07/2024 2:30 PM EDT TH Visit (TeleHealth) [place] [phone] Dajuan Rachel MD [facility] DR GASTROENTER[place] [address] 07/02/2024 2:00 PM EDT Appointment Non-Invasive Cardiology Lab [place] [phone] Luis Alfredo Velazquez MD [facility] [place] [address] 07/02/2024 4:40 PM EDT Office Visit Cardiology at [address] [phone] Luis Alfredo Velazquez MD [facility] [place] [address] documented as of this encounter Visit Diagnoses Not on filedocumented in this encounter Care Teams Sewing Machine Bobbin Winder Relationship Specialty Start Date End Date Marcio Devlin DO [facility] [place] [address] [place] [address] PCP - General Family Medicine 11/11/17 documented as of this encounter
--- OUTSIDE RECORDS SUMMARY | 2024-04-08 02:28 | XMS_ITS | Encounter Summary ---
Author Organization [facility] [place] [address] Care Team Providers Care Needle Grinder Name Role Phone Marcio Devlin DO Primary Care Provider [phone] Reason for Referral * Consultation (Routine) - Closed Specialty Diagnoses / Procedures Referred By Contlyn t Referred To Contact Pain Management Diagnoses Chronic left hip pain Ankylosing spondylitis of cervical region Neck pain Gabe Fong MD [facility] [place] [address] Jorje Marquez DO [address] [facility] [place] [address] Referral ID Status Reason Start Date Expiration Date V isits Requested Visits Authorized [id number] Closed Consult, Test & Treat 03/22/2022 03/22/2023 1 1 Encounter Details Date Type Department Care Team (Late st Contact Info) Description 03/22/2022 9:30 AM EDT Office [place] [address] Gabe Fong MD [facility] [place] [address] Chronic left hip pain; Ankylosing spondylitis of cervical region; Ulcerative colitis without complications, unspecified location; Decreased ROM of neck; Neck pain; Pain in left hip; Chronic neck pain; High risk medication use; Chronic midline low back pain without sciatica; Inflammatory arthropathy; Morning joint stiffness; Medication monitoring encounter; SOB (shortness of breath) Social History Tobacco Use Types Packs/Day Years [...] Sign Reading Time Taken Comments Blood Pressure 133/62 03/22/2022 9:08 AM EDT Pulse 60 03/22/2022 9:08 AM EDT Temperature 36.1 ??C (97 ??F) 03/22/2022 9:08 AM EDT Respiratory Rate 16 03/22/2022 9:08 AM EDT Oxygen Saturation 100% 03/22/2022 9:08 AM EDT Inhaled Oxygen Concentration - - Weight 76.5 kg (168 lb 9.6 oz) 03/22/2022 9:08 A M EDT Height 166.4 cm (5' 5.5) 03/22/2022 9:08 AM EDT Body Mass Index 27.63 03/22/2022 9:08 AM EDT documented in this encounter Progress Notes * Gabe Fong MD - 03/22/2022 9:30 AM EDT Rheumatology Follow-Up Video Note [...] reported or known from current medication regimen. Patient seen today still having limited range of motion but overall her joints are doing better. She feels like she is supposed have a follow-up with Dr. Wilson Garcia. But she has not heard back.She notes as a follow-up with the [employer]/PA for this with me after the colonoscopy. MRI of the neck did not show increased inflammation the rest of her joint pain seems to be doing better it still the neck that is the primary issue Limited range of motion most recent She has some trapezius pain Rheumatic history (x) means positive Iritis Dactylitis [...] reviewedand updated as appropriate. Physical Exam: BP 133/62 (BP Location (NBP): Left arm, Patient Position: Sitting, BP Cuff Sizes: Adult (25-34 cm)) Pulse 60 Temp 36.1 ??C (97 ??F) (Temporal) Resp 16 Ht 166.4 cm (5' 5.5) Wt 76.5 kg (168 lb 9.6 oz) SpO2 100% BMI 27.63 kg/m?? General: NAD HEENT: Mucous membranes are [...] at any joint. No soft tissue nodules. No results found for this or any [...] spondylitis- - UC quite -concerns for worsening -reach out to Dr. Rachel he is can give me a call back recommendations for our patient would be repeat inflammatory markers see where we stand MRI did not show worsening- -We have a few options though somewhat limited secondary to ulcerative colitis 1 -1 would be to try an alternative drug such as Remicade, Xeljanz, or Rinvoq 2 -Other would be to continue Stelara and add Celebrex and see if it exacerbate his her ulcerative colitis 3- If coming off Stelara would be difficult for this patient could potentially add a TNF inhibitor with OB risks infection profile would recommend Remicade based on discussion with other providers inthe clinic though Humira would be an option to take a response from a joint standpoint Chronic neck pain with limited range of motion will refer to pain clinic for injections of chosen APD because of they have a sports medicine doctor involved there- Who is expertise and ultrasound able to provide trigger point improvement in addition to treating neck pain Trapezial pain-denies shortness of breath- Hip Replacement -MRI reassuring hip injections seem to improve symptoms . High risk medication high feng of immun compromise DiscontinuedAZA monitoring Can affect the rib cage seems to be more musculoskeletal - Orders Placed This Encounter Procedures ??? CBC (with Diff) ??? Comprehensive metabolic panel (non-fasting) ??? CRP, acute inflammation ??? Sedimentation rate ??? Referral to Pain Management ??? Pulmonary Function Testing Return in about 4 weeks (around 04/19/2022). > 32 minutes total with phone calls and documentation discussing documented in this encounter Plan of Treatment Upcoming Encounters Date Type Department Care Team (Late st Contact Info) Description 04/19/2024 10:00 AM EDT Hospital Encounter [place] [address] Arrived 04/29/2024 9:50 AM EDT Appointment MRI at [place] [address] Luis Alfredo Velazquez MD [facility] [place] [address] 04/29/2024 9:50 AM EDT Appointment MRI at [place] [address] Luis Alfredo Velazquez MD [facility] [place] [address] 06/07/2024 2:30 PM EDT TH Visit (TeleHealth) Gastroenterology at [place] [address] Dajuan Rachel MD [facility] [place] [address] 07/02/2024 2:00 PM EDT Appointment Non-Invasive Cardiology Lab [place] [address] Luis Alfredo Velazquez MD [facility] [place] [address] 07/02/2024 4:40 PM EDT Office Visit Cardiology at [place] [address] Luis Alfredo Velazquez MD [facility] [place] [address] Scheduled Referrals Name Type Priority Associated Diagnoses Orde r Schedule Referral to Pain Management Outpatient Referral Routine Chronic left hip pain Ankylosing spondylitis of cervical region Neck pain Ordered: 03/22/2022 documented as of this encounter Results * Pulmonary Function Testing [...] / FVC LLN 67 % COMPAS PFT [id number] Actual Pre-BD 2.09 L/s COMPAS PFT [id number] Pre-BD % of Predicted 91 % COMPAS PFT [id number] Predicted 2.29 L/s COMPAS PFT [id number] Pre-BD Z-Score -0.25 COMPAS PFT DLCO Hb [...] spondylitis Ulcerative colitis without complications, unspecified location Decreased ROM of neck Neck pain Cervicalgia Pain in left hip Pain in joint, pelvic region and thigh Chronic neck pain Cervicalgia High risk medication use Encounter for long-term (current) use of other medications Chronic midline low back pain without sciatica Inflammatory arthropathy Arthropathy, unspecified, site unspecified Morning joint stiffness Stiffness of joint, not elsewhere classified, unspecified site Medication monitoring encounter Encounter for therapeutic drug monitoring SOB (shortness of breath) Shortness of breath SOB (shortness of breath) Shortness of breath documented in this encounter Care Teams Needle Grinder Relationship Specialty Start Date End Date Marcio Devlin DO [address] [place] [address] PCP - General Family Medicine 11/11/17 documented as of this encounter
--- OUTSIDE RECORDS SUMMARY | 2024-04-08 02:28 | XMS_ITS | Encounter Summary ---
Author Organization [facility] [place] [address] Care Team Providers Care Wireless Engineer Name Role Phone Marcio Devlin DO Primary Care Provider [phone] Encounter Details Date Type Department Care Team (Late st Contact Info) Description 08/06/2022 Telephone [place] [address] [place] Diana Dajuan Social History Tobacco Use Types Packs/Day Years [...] slept in a long-term (including now)? 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 Have you ever had a/an Colonoscopy before? Yes: Date 12/19/20 If yes, did you have any problems with the procedure (such as waking up during the procedure, pain or difficulties afterwards, etc.)? No What type of sedation was used: IV Conscious Sedation 2. Do you take any blood thinners or have you been diagnosed with a bleeding disorder that increases your risk of bleeding with procedures? No 3. Do you have a Pacemaker or Defibrillator device? If yes, send pool message to Cardiology with patient information and date or procedure. No 4. Are you a diabetic? If yes, call PCP/managing provider to discuss use of prep and any questions or concerns related to. No 5. Do you take any iron supplements or vitamins that contain iron? Yes 6. Do you have a preference regarding the gender of your provider? Yes rachel ANESTHESIA QUESTIONS (YES to any question, please book with Anesthesia support) 7. Have you ever been diagnosed with any of the following: Pulmonary Hypertension, Atrial Fibrillation (A-Fib) and/or Congential Heart Disease? No 8. Have you ever had an allergic or adverse reaction to Fentanyl or Versed? No 9. Have you had a problem with sedation or anesthesia? (Waking up during procedure, extreme confusion after, etc.) No 10. Do you have a diagnosis of Obstructive Sleep Apnea? No 11. Do you use a c-pap machine? Neither 12. Do you use an oxygen tank at home? No 13. Do you use a rescue inhaler more than twice per day? (COPD, severe asthma) No 14. Do you experience breathing problems when you lay flat for a period of time? No 15. Do you take prescription narcotic pain medications, including suboxone or methodone? No SCHEDULING CONFIRMATIONS: Please note any and all parts of your conversation with the patient here. 16. We offer all new patients an opportunity to have an appointment with one of our associate care providers to learn more about your upcoming procedure, ask questions and get answers. These appointments are offered via telehealth. Would you be interested in scheduling this appointment? (Only ask if NEW referral patient; skip this question if [facility] GI provider ordered the procedure.) No 17. Is there any other information or concerns you would like to us to share with your care team inrelation to your upcoming scheduled procedure? No 18. You must have a responsible republican who will drive you to your procedure, stay on campus for the entire duration of your procedure, and drive you home from your procedure. Who will likely be your bicycle taxi driver for the procedure? Estimated body mass index is 27.73 kg/m?? as calculated from the following: Height as of an earlier encounter on 08/06/22: 166.4 cm (5' 5.5). Weight as of an earlier encounter on 08/06/22: 76.7 kg (169 lb 3.2 oz). Age:62 y.o. * Telephone Encounter - Diana Boyle - 08/06/2022 12:52 PM EST ----- Message from Dajuan Rachel MD sent at 07/31/2022 7:02 PM EST ----- Regarding: [place] [facility] schedule the colo that was ordered at the beginning of the year. Thanks. Next available with mod consc sed C documented in this encounter Plan of Treatment Upcoming Encounters Date Type Department Care Team (Late st Contact Info) Description 04/19/2024 10:00 AM EDT Hospital Encounter Non-[place]vasive [place] [address] Arrived 04/29/2024 9:50 AM EDT [place]ment [place] [address] Luis Alfredo Velazquez MD [facility] [place] [address] 04/29/2024 9:50 AM EDT [place] [phone] Luis Alfredo Velazquez MD [facility] [place] [address] 06/07/2024 2:30 PM EDT TH Visit (TeleHealth) Gastroenterology at [place] [phone] Dajuan Rachel MD [facility] [place] [address] 07/02/2024 2:00 PM EDT Appointment Non-[place]vasive [place] [address] Luis Alfredo Velazquez MD [facility] [place] [place] [address] 07/02/2024 4:40 PM EDT Office Visit Cardiology at [address] [address] Luis Alfredo Velazquez MD [facility] [place] [address] documented as of this encounter Visit Diagnoses Not on filedocumented in this encounter Care Teams Wireless Engineer Relationship Specialty Start Date End Date Marcio Devlin DO [address] [place] [address] PCP - General Family Medicine 11/11/17 documented as of this encounter
--- OUTSIDE RECORDS SUMMARY | 2024-04-08 02:28 | XMS_ITS | Encounter Summary ---
Author Organization [facility] [place] [address] Care Team Providers Care Help Desk Support Name Role Phone Marcio Devlin DO Primary Care Provider [phone] Reason for Visit * Reason Comments Left Hip Pain Encounter Details Date Type Department Care Team (Late st Contact Info) Description 01/23/2022 3:00 PM EDT Office [place] [address] Saurabh Mercado MD [facility] [place] [address] Trochanteric bursitis of left hip Social History Tobacco Use Types Packs/Day Years [...] Sign Reading Time Taken Comments Blood Pressure 118/64 01/23/2022 3:01 PM EDT Pulse 67 01/23/2022 3:01 PM EDT Temperature - - Respiratory Rate - - Oxygen Saturation - - Inhaled Oxygen Concentration - - Weight 78 kg (172 lb) 01/23/2022 3:01 PM EDT Height 166.4 cm (5' 5.5) 01/23/2022 3:01 PM EDT Body Mass Index 28.19 01/23/2022 3:01 PM EDT documented in this encounter Progress Notes * Alison Lobo MD - 01/23/2022 3:00 PM EDT Arthroplasty/Orthopaedic History: 1. LEFT ROSS 2005 (Dr. Miles) HPI: Kim Funes is a very pleasant 61 y.o. year-old female who is 16 years status post lefttotal hip arthroplasty with Dr. Miles who is been seen in follow-up with Dr. Zhao recently for leftgreater trochanteric bursitis. She had trialed physical therapy and Voltaren topical gel which did help to some degree however did not completely mitigate her symptoms. She is interested in pursuing a steroid injection at this time. She cannot take NSAIDs due to other medical conditions and medication she is on. She has RA. Of note she recently had inflammatory markers drawn by her rheumatologistand her ESR was 70 and CRP was 23.9, she does have a chronically mild elevation in her CRP previously between 5 and 8 so this is elevated from her baseline however she also had COVID this winter. Denies fevers, chills or other symptoms. ROS: Denies: fever, chills, night sweats, nausea, or vomiting BP 118/64 (BP Location (NBP): Left arm, Patient Position: Sitting, BP Cuff Sizes: Adult (25-34 cm)) Pulse 67 Ht 166.4 cm (5' 5.5) Wt 78 kg (172 lb) BMI 28.19 kg/m?? Physical Exam: Well-appearing female in no acute distress. Alert and Oriented x 3 and answers all questions appropriately. The incision is well healed, with no signs of infection. Hip Exam: Left Longer leg: left Limb Length discrepancy: 0cm Motion: Flexion contracture: 0 Total degrees of Flexion: 110 Total degrees of Abduction: 25 Total degrees of Ext Rotation: 25 Total degrees of Internal Rotation: 15 Gait Abnormality: Antalgic Pulses Palpable: Left PT: Yes Left DP: Yes Motor/Sensory: Left Distal Motor: Normal Distal Sensory: Normal Hip Abductors: 5 and and increased pain with resisted side laying abduction; point tenderness to palpation over greater trochanter Trendelenburg test: negative X-RAYS: Multiple radiographic views were obtained at my request and reviewed with the patient. X-rays show a well-placed prosthesis with no evidence of fracture, subsidence, loosening, or periprosthetic complication. Questionnaire Responses: [facility] Surgical Postop Visit 01/16/2022 PROMIS-10 General Health Good PROMIS-10 Quality of Life Good PROMIS-10 Physical Health Good PROMIS-10 Mental Health Good PROMIS-10 Social Activity Good PROMIS-10 Everyday Activities Mostly PROMIS-10 Pain 6 PROMIS-10 Fatigue Mild PROMIS-10 Social Roles Good PROMIS-10 Anxious or Depressed Never PROMIS PHYSICAL HEALTH SCORE 44.9 PROMIS MENTAL HEALTH SCORE 48.3 HOOS JR Scores 64.66 Problems with surgical incision/wound after surgery - Gone to ER since knee surgery No Admitted to hospital since recent ortho surgery No Hospital - Date of admission - Discharge date - Reason you went to hospital - Additional surgery on same body part No ROSS Grade 6 Pain in other HIP Mild Back pain at this moment Very mild Satisfaction with Treatment Satisfied Choose Same Treatment Again Definitely yes Orthopeadics [facility] Response 01/16/2022 HOOS JR Scores 64.66 Spine [facility] Response 01/16/2022 HOOS JR Scores 64.66 Trochanteric bursitis injection: We discussed with the patient the risks of this procedure include, but are not limited to increasedpain, infection, bleeding, increase in blood sugars, and steroid flare. A timeout was performed at the bedside. Patient confirmed name, , allergies, and site of injection. The injection site was marked at point of maximal tenderness to palpation over the greater trochanter and prepared with Dura-prep. Using sterile gloves, a local anesthetic injection was performed using 4 ccs of 1% plain Lidocaine mixed with 40 mg of Kenalog. The procedure was well tolerated. The injection site was covered cleaned with sterile gauze and covered with a sterile band-aid. We discussed monitoring for signs and symptoms of infection which includes fevers, chills, night sweats, injection site redness and discharge. ASSESSMENT/PLAN: Ms. Funes is a 61 y.o. year old female 16 yr s/p L ROSS (Ginger) who has had symptoms concerning for left greater trochanteric bursitis. She has tried physical therapy and Voltaren gel topically and she cannot tolerate NSAIDs due to her other medications and medical comorbidities given she has RA. Today administered corticosteroid injection in the left greater trochanter and was well tolerated. F/up PRN after this Would recommend repeating inflammatory labs in 6 months. All questions were answered. Signed: Alison Lobo MD 01/23/2022 * Saurabh Mercado MD - 01/23/2022 3:00 PM EDT I performed a history and physical examination of the patient and discussed the management plan with Alison Lobo MD. I also discussed the different treatment options, as well as the risks and benefits of each with the patient and questions were answered. I reviewed the note and agree with the documented findings and plan of care. Saurabh Mercado MD 02/01/2022 documented in this encounter Plan of Treatment Upcoming Encounters Date Type Department Care Team (Late st Contact Info) Description 04/19/2024 10:00 AM EDT Hospital Encounter Non-[place] [address] Arrived 04/29/2024 9:50 AM [place] [phone] Luis Alfredo Velazquez MD [facility] [place] [address] 04/29/2024 9:50 AM [place] [address] Luis Alfredo Velazquez MD [facility] [place] [address] 06/07/2024 2:30 PM EDT TH Visit (TeleHealth) [place] [address] Dajuan Rachel MD [facility] [place] [address] 07/02/2024 2:00 PM EDT Appointment Non-Invasive Cardiology Lab [place] [phone] Luis Alfredo Velazquez MD [facility] [place] [address] 07/02/2024 4:40 PM EDT Office Visit Cardiology at [address] [address] Luis Alfredo Velazquez MD [facility] [place] [address] documented as of this encounter Visit Diagnoses Diagnosis Trochanteric bursitis of left hip Enthesopathy of hip region documented in this encounter Care Teams Help Desk Support Relationship Specialty Start Date End Date Marcio Devlin DO [address] [place] [address] PCP - General Family Medicine 11/11/17 documented as of this encounter
--- OUTSIDE RECORDS SUMMARY | 2024-04-08 02:28 | XMS_ITS | Encounter Summary ---
Author Organization [facility] [place] [address] Care Team Providers Care Information Management Manager Name Role Phone Marcio Devlin DO Primary Care Provider [phone] Encounter Details Date Type Department Care Team (Latest Contact Info) Description 08/04/2022 Travel Social History Tobacco Use Types Packs/Day [...] AM EDT Hospital Encounter Non-[place] [address] Arrived 04/29/2024 9:50 AM EDT Appointment MRI at [place] [address] Luis Alfredo Velazquez MD [facility] [place] [address] 04/29/2024 9:50 AM EDT Appointment MRI at [place] [phone] Luis Alfredo Velazquez MD [facility] [place] [address] 06/07/2024 2:30 PM EDT TH Visit (TeleHealth) Gastroenterology at [address] Dajuan Rachel MD [facility] [place] [address] 07/02/2024 2:00 PM EDT Appointment Non[place] [address] Luis Alfredo Velazquez MD [facility] [place] [address] 07/02/2024 4:40 PM EDT Office Visit Cardiology at [address] [address] Luis Alfredo Velazquez MD [facility] [place] [address] documented as of this encounter Visit Diagnoses Not on filedocumented in this encounter Care Teams Information Management Manager Relationship Specialty Start Date End Date Marcio Devlin DO [address] [place] [address] PCP - General Family Medicine 11/11/17 documented as of this encounter
--- OUTSIDE RECORDS SUMMARY | 2024-04-08 02:28 | XMS_ITS | Encounter Summary ---
Author Organization [facility] Address [facility] [place] [address] Care Team Providers Care Tile Finisher Name Role Phone Marcio Devlin DO Primary Care Provider [phone] Encounter Details Date Type Department Care Team (Late st Contact Info) Description 02/04/2022 Orders [place] [phone] Dajuan Rachel MD [facility] [place] [address] Social History Tobacco Use Types Packs/Day Years [...] AM EDT Hospital Encounter Non-Invasive [place] [phone] Arrived 04/29/2024 9:50 AM EDT Appointment MRI at [place] [address] Luis Alfredo Velazquez MD [facility] [place] [address] 04/29/2024 9:50 AM EDT Appointment MRI at [place] [address] Luis Alfredo Velazquez MD [facility] [place] [address] 06/07/2024 2:30 PM EDT TH Visit (TeleHealth) [place] [address] Dajuan Rachel MD [facility] [place] [address] 07/02/2024 2:00 PM EDT Appointment Non-Invasive Cardiology Lab [place] [address] Luis Alfredo Velazquez MD [facility] [place] [address] 07/02/2024 4:40 PM EDT Office Visit Cardiology at [address] Luis Alfredo Velazquez MD [facility] [place] [address] documented as of this encounter Visit Diagnoses Not on filedocumented in this encounter Care Teams Tile Finisher Relationship Specialty Start Date End Date Marcio Devlin DO [address] [place] [address] PCP - General Family Medicine 11/11/17 documented as of this encounter
--- OUTSIDE RECORDS SUMMARY | 2024-04-08 02:28 | XMS_ITS | Encounter Summary ---
Author Organization [facility] Address [facility] [place] [address] Care Team Providers Care Sand Slinger Name Role Phone Marcio Devlin DO Primary Care Provider [phone] Encounter Details Date Type Department Care Team (Late st Contact Info) Description 02/11/2022 Orders [place] [phone] Dajuan Rachel MD [facility] [place] [address] Social History Tobacco Use Types Packs/Day Years [...] AM EDT Hospital Encounter Non-[place]vasive [place] [address] Arrived 04/29/2024 9:50 AM EDT Appointment MRI at [place] [address] Luis Alfredo Velazquez MD [facility] [place] [address] 04/29/2024 9:50 AM EDT Appointment MRI at [place] [address] Luis Alfredo Velazquez MD [facility] [place] [address] 06/07/2024 2:30 PM EDT TH Visit (TeleHealth) [place] [address] Dajuan Rachel MD [facility] [address] 07/02/2024 2:00 PM EDT Appointment Non-Invasive Cardiology Lab [place] [address] Luis Alfredo Velazquez MD [facility] [place] [address] 07/02/2024 4:40 PM EDT Office Visit Cardiology at [address] Luis Alfredo Velazquez MD [facility] [address] documented as of this encounter Visit Diagnoses Not on filedocumented in this encounter Care Teams Sand Slinger Relationship Specialty Start Date End Date Marcio Devlin DO [address] [place] [address] PCP - General Family Medicine 11/11/17 documented as of this encounter
--- OUTSIDE RECORDS SUMMARY | 2024-04-08 02:28 | XMS_ITS | Encounter Summary ---
Author Organization [facility] Address [facility] [place] [address] Care Team Providers Care Program Evaluator Name Role Phone Marcio Devlin DO Primary Care Provider [phone] Encounter Details Date Type Department Care Team (Late st Contact Info) Description 02/12/2022 Telephone Rheumatology at [facility] [place] [address] Gabe Fong MD [facility] [place] [address] Social History Tobacco Use Types Packs/Day Years [...] encounter Miscellaneous Notes * Telephone Encounter - Gabe Fong MD - 02/12/2022 3:31 PM EDT Review MRI result She is still in pain and having joint pain a\ Bowels seem okay. documented in this encounter Plan of Treatment Upcoming Encounters Date Type Department Care Team (Late st Contact Info) Description 04/19/2024 10:00 AM EDT Hospital Encounter Non-Invasive [place] [address] Arrived 04/29/2024 9:50 AM EDT Appointment MRI at [place] [address] Luis Alfredo Velazquez MD [facility] [place] [address] 04/29/2024 9:50 AM EDT Appointment MRI at [place] [address] Luis Alfredo Velazquez MD [facility] [place] [address] 06/07/2024 2:30 PM EDT TH Visit (TeleHealth) Gastroenterology at [place] [address] Dajuan Rachel MD [facility] GASTROENTEROLOG[place] [address] 07/02/2024 2:00 PM EDT Appointment Non-Invasive Cardiology Lab [address] Luis Alfredo Velazquez MD [facility] [place] [address] 07/02/2024 4:40 PM EDT Office Visit Cardiology at [place] [phone] Luis Alfredo Velazquez MD [facility] [place] [address] documented as of this encounter Visit Diagnoses Not on filedocumented in this encounter Care Teams Program Evaluator Relationship Specialty Start Date End Date Marcio Devlin DO [address] [place] [address] PCP - General Family Medicine 11/11/17 documented as of this encounter
--- OUTSIDE RECORDS SUMMARY | 2024-04-08 02:28 | XMS_ITS | Encounter Summary ---
Author Organization [facility] [place] [address] Care Team Providers Care Senior Internet Sales Consultant Name Role Phone Marcio Devlin DO Primary Care Provider [phone] Encounter Details Date Type Department Care Team (Late st Contact Info) Description 05/16/2022 Orders [place] [phone] Rachelle Acevedo, RN Social History Tobacco Use Types Packs/Day [...] place to sleep or slept in a penitentiary (including now)? No 05/03/2022 Sex and Gender Information Value Date Recorded Sex Assigned at Female 07/21/2021 4:56 PM EDT Gender Identity Female 07/21/2021 4:56 PM EDT Sexual Orientation Straight 07/21/2021 4: 56 PM EDT documented as of this encounter Progress Notes * Rachelle Acevedo RN - 05/16/2022 9:43 AM EDT error documented in this encounter Plan of Treatment Upcoming Encounters Date Type Department Care Team (Late st Contact Info) Description 04/19/2024 10:00 AM EDT Hospital Encounter Non-Invasive [place] [address] Arrived 04/29/2024 9:50 [place] [phone] Luis Alfredo Velazquez MD [facility] [place] [address] 04/29/2024 9:50 [place] [address] Luis Alfredo Velazquez MD [facility] [place] [address] 06/07/2024 2:30 PM EDT TH Visit (TeleHealth) [place] [address] Dajuan Rachel MD [facility] [place] [address] 07/02/2024 2:00 PM EDT Appointment Non-Invasive [place] [address] Luis Alfredo Velazquez MD [facility] [place] [address] 07/02/2024 4:40 PM EDT Office Visit Cardiology at [address] [phone] Luis Alfredo Velazquez MD [facility] [place] [address] documented as of this encounter Visit Diagnoses Not on filedocumented in this encounter Care Teams Senior Internet Sales Consultant Relationship Specialty Start Date End Date Marcio Devlin DO [address] [place], [place] [address] [address] PCP - General Family Medicine 11/11/17 documented as of this encounter
--- OUTSIDE RECORDS SUMMARY | 2024-04-08 02:28 | XMS_ITS | Encounter Summary ---
Author Organization [facility] [place] [address] Care Team Providers Care Offline Editor Name Role Phone Marcio Devlin DO Primary Care Provider [phone] Encounter Details Date Type Department Care Team (Latest Contact Info) Description 08/06/2022 Travel Social History Tobacco Use Types Packs/Day [...] AM EDT Hospital Encounter Non-[place] [address] Arrived 04/29/2024 9:50 AM EDT Appointment MRI at [place] [address] Luis Alfredo Velazquez MD [facility] [place] [address] 04/29/2024 9:50 AM EDT Appointment MRI at [place] [phone] Luis Alfredo Velazquez MD [facility] [place] [address] 06/07/2024 2:30 PM EDT TH Visit (TeleHealth) Gastroenterology at [address] Dajuan Rachel MD [facility] GASTROENTEROLOG[place] [address] 07/02/2024 2:00 PM EDT Appointment Non-[place]vasive [place] [address] Luis Alfredo Velazquez MD [facility] [place] [address] 07/02/2024 4:40 PM EDT Office Visit Cardiology at [address] [address] Luis Alfredo Velazquez MD [facility] [place] [address] documented as of this encounter Visit Diagnoses Not on filedocumented in this encounter Care Teams Offline Editor Relationship Specialty Start Date End Date Marcio Devlin DO [address] [place] [address] PCP - General Family Medicine 11/11/17 documented as of this encounter
--- OUTSIDE RECORDS SUMMARY | 2024-04-08 02:28 | XMS_ITS | Encounter Summary ---
Author Organization [facility] [place] [address] Care Team Providers Care Gas Welder Apprentice Name Role Phone Marcio Devlin DO Primary Care Provider [phone] Reason for Referral * Diagnostic Test (Routine) - Closed Specialty Diagnoses / Procedures Referred By Contac t Referred To Contact Radiology Diagnoses Ankylosing spondylitis of cervical region Neck pain Decreased ROM of neck Procedures MRI Cervical Spine wo Contrast (Generic) Gabe Fong MD [facility] [place] [address] [place] [address] Referral ID Status Reason Start Date Expiration Date V isits Requested Visits Authorized [id number] Closed Specialty Service Requested 02/22/2022 08/24/2023 1 1 Reason for Visit * Diagnostic Test (Routine) - Closed Specialty Diagnoses / Procedures Referred By Contac t Referred To Contact Radiology Diagnoses Ankylosing spondylitis of cervical region Neck pain Decreased ROM of neck Procedures MRI Cervical Spine wo Contrast (Generic) Gabe [place] [address] [place] [address] Referral ID Status Reason Start Date Expiration Date V isits Requested Visits Authorized [id number] Closed Specialty Service Requested 02/22/2022 08/24/2023 1 1 Encounter Details Date Type Department Care Team (Latest Contact Info) Description 03/08/2022 6:57 AM EDT - 03/08/2022 11:59 PM EDT Hospital Encounter MRI at [facility] [phone] Gabe [place]ong [place] [address] Ankylosing spondylitis of cervical region; Neck pain; Decreased ROM of neck Discharge Disposition: Home Social History Tobacco Use [...] by mouth daily. SUMAtriptan (IMITREX) 20 mg/actuation [place], Non-Aerosol 1 spray as needed. 11/03/2017 metFORMIN [...] AM EDT Hospital Encounter Non-Invasive [place] [address] Arrived 04/29/2024 9:50 AM EDT Appointment MRI at [address] Luis Alfredo Velazquez MD [facility] [place] [address] 04/29/2024 9:50 AM EDT Appointment MRI at [place] [address] Luis Alfredo Velazquez MD [facility] [place] [address] 06/07/2024 2:30 PM EDT TH Visit (TeleHealth) [place] [address] Dajuan Rachel MD [facility] [place] [address] 07/02/2024 2:00 PM EDT Appointment Non-Invasive Cardiology Lab [place] [phone] Luis Alfredo Velazquez MD [facility] [place] [address] 07/02/2024 4:40 PM EDT Office Visit Cardiology at [place] [phone] Luis Alfredo Velazquez MD [facility] [place] [address] documented as of this encounter Procedures Procedure Name Priority Date/Time Associated Diagnosis Comments MRI CERVICAL SPINE WO CONTRAST Routine 03/08/2022 7:54 AM EDT Ankylosing spondylitis of cervical region Neck pain Decreased ROM of neck documented in this encounter Results * MRI [...] interpretation and agree with the findings, Jorje Milelr MD at 03/08/2022 3:59 PM Thank you for letting us participate in the care of this patient. ??If you are a health care provider and have any questions regarding this report, please contact the number below. ??For patients who have questions please contact the health long term care pharmacist that requested your imaging first. ? Electronically signed by: Jorje Miller MD, [facility] ([phone]), at 03/08/2022 3:59 PM Narrative 03/08/2022 3:59 [...] patients who have questions please contactthe health long term care pharmacist that requested your imaging first. Electronically signed by: Jorje Miller MD, [facility]([phone]), at 03/08/2022 3:59 PM Gabe Fong MD IMG MRI ORDERABLES documented in this encounter Visit Diagnoses Diagnosis Ankylosing spondylitis of cervical region Ankylosing spondylitis Neck pain Cervicalgia Decreased ROM of neck documented in this encounter Care Teams Gas Welder Apprentice Relationship Specialty Start Date End Date Marcio Devlin DO [address] [place] [address] PCP - General Family Medicine 11/11/17 documented as of this encounter
--- OUTSIDE RECORDS SUMMARY | 2024-04-08 02:28 | XMS_ITS | Encounter Summary ---
Author Organization [facility] [place] [address] Care Team Providers Care Pai Gow Dealer Name Role Phone Marcio Devlin DO Primary Care Provider [phone] Reason for Visit * Reason Comments Prior Authorization Stelara 90mg/ml SOSY Encounter Details Date Type Department Care Team (Late st Contact Info) Description 08/19/2022 Specialty [place] [phone] Tiff Anglin, [facility] Social History Tobacco Use Types Packs/Day Years [...] this encounter Progress Notes * Tiff Anglin [facility] - 08/19/2022 2:54 PM EST [facility], Medication Prior Authorization Submission Patient: Kim Funes Patient : 1960 Patient Address: [address] [place] [phone] (home) Medication Name: STELARA 90 MG/ML SUBCUTANEOUS SYRINGE Medication ID: [id number] Subscriber Insurance: [employer] ([facility]) Subscriber Insurance Comment: Phone: [phone] Fax: Physician: Dajuan BERRY Physician Comment: Sent Via: Fax Truong: Ref/Case/PA#: [id number] Medication Strength Frequency Requested: Stelara 90mg/ml SOSY, Inject 1ml (90mg) subcutaneously once every 56 days. Qty/Day Supply: New Start: Renewal Diagnosis & ICD-10 Code: Ulcerative pancolitis without complication (K51.00) Patient Notified: No Submission Notes: - PA submitted through Prompt PA for Stelara 90mg/ml SOSY, qty . EOC# [id number] Tiff Anglin CPHT 08/19/22 2:58 PM * Tiff Anglin [facility]HT - 08/19/2022 2:54 PM EST D- Specialty Pharmacy, Prior Authorization Approval Medication Name: STELARA 90 MG/ML SUBCUTANEOUS SYRINGE Medication ID: [id number] Approval Dates: 08/21/2022 to 08/20/2023 Insurance requirements/notes: - Patient mandated to fill with [facility]. Other Notes: - PA approved for Stelara 90mg/ml SOSY, qty through 08/20/23. Case/Reference #: [id number] Approval notification Received via: Fax Copay: unknown Copay assistance: None Copay Notes: Insurance mandated Pharmacy: [facility] Fillable at D Specialty Pharmacy: No Pharmacy staff will be reaching out to the patient to inform them of their medication's approval bytheir insurance. If applicable, a pharmacist will speak with the patient to offer our specialty pharmacy services and to arrange delivery of their medication. Tiff Anglin CPHT 08/22/22 11:08 AM documented in this encounter Plan of Treatment Upcoming Encounters Date Type Department Care Team (Late st Contact Info) Description 04/19/2024 10:00 AM EDT Hospital Encounter Non-[place] [address] Arrived 04/29/2024 9:50 [place] [address] Luis Alfredo Velazquez MD [facility] [place] [address] 04/29/2024 9:50 AM EDT [place] [address] Luis Alfredo Velazquez MD [facility] [place] [address] 06/07/2024 2:30 PM EDT TH Visit (TeleHealth) [place] [address] Dajuan Berry MD [facility] [place] [address] 07/02/2024 2:00 PM EDT Appointment Non-Invasive [place] [address] Luis Alfredo Velazquez MD [facility] [place] [address] 07/02/2024 4:40 PM EDT Office Visit Cardiology at [place] [phone] Luis Alfredo eVlazquez MD [facility] [place] [address] documented as of this encounter Visit Diagnoses Not on filedocumented in this encounter Care Teams Pai Gow Dealer Relationship Specialty Start Date End Date Marcio Devlin DO [address] [place] [address] PCP - General Family Medicine 11/11/17 documented as of this encounter
--- OUTSIDE RECORDS SUMMARY | 2024-04-08 02:28 | XMS_ITS | Encounter Summary ---
Author Organization [facility] [place] [address] Care Team Providers Care Cardiac Cath Lab Radiology Technologist Name Role Phone Marcio Devlin DO Primary Care Provider [phone] Encounter Details Date Type Department Care Team (Late st Contact Info) Description 05/14/2022 Telephone [place] [address] Janki Abdi Social History Tobacco Use Types Packs/Day Years [...] medical appointments or from getting medications? No 08/1 05/2022 In the past 12 months, has l [...] encounter Miscellaneous Notes * Telephone Encounter - Janki Abdi - 05/14/2022 3:14 PM EDT Return in about 6 weeks (around 06/21/2022) for Either In Person or Telehealth. documented in this encounter Plan of Treatment Upcoming Encounters Date Type Department Care Team (Late st Contact Info) Description 04/19/2024 10:00 AM EDT Hospital Encounter Non-Invasive [place] [address] Arrived 04/29/2024 9:50 AM EDT Appointment MRI at [place] [phone] Luis Alfredo Velazquez MD [facility] [place] [address] 04/29/2024 9:50 AM EDT [place] [address] Luis Alfredo Velazquez MD [facility] [place] [address] 06/07/2024 2:30 PM EDT TH Visit (TeleHealth) Gastroenterology at [place] [phone] Dajuan Rachel MD [facility] [place] [address] 07/02/2024 2:00 PM EDT Appointment [place] [address] Luis Alfredo Velazquez MD [facility] [place] [address] 07/02/2024 4:40 PM EDT Office Visit Cardiology at [address] [phone] Luis Alfredo Velazquez MD [facility] [place] [address] documented as of this encounter Visit Diagnoses Not on filedocumented in this encounter Care Teams Cardiac Cath Lab Radiology Technologist Relationship Specialty Start Date End Date Marcio Devlin DO [address] [place] [address] PCP - General Family Medicine 11/11/17 documented as of this encounter
--- OUTSIDE RECORDS SUMMARY | 2024-04-08 02:28 | XMS_ITS | Encounter Summary ---
Author Organization [facility] Address [facility] [place] [address] Care Team Providers Care Gravity Meter Operator Name Role Phone Marcio Devlin DO Primary Care Provider [phone] Reason for Referral * Physical Therapy (Routine) - Closed Specialty Diagnoses / Procedures Referred By Missy escalera Referred To Contact Diagnoses Neck pain Chronic bilateral thoracic back pain Ankylosing spondylitis of cervical region Ulcerative colitis without complications, unspecified location High risk medication use Gabe Fong MD [facility] [place] [address] Referral ID Status Reason Start Date Expiration Date V isits Requested Visits Authorized [id number] Closed Evaluate and Treat 08/06/2022 02/02/2023 12 12 Encounter Details Date Type Department Care Team (Late st Contact Info) Description 08/06/2022 9:30 AM EST Office Visit Rheumatology at [facility] [place] [address] Gabe Fong MD [facility] [place] [address] Neck pain; Chronic bilateral thoracic back pain; Ankylosing spondylitis of cervical region; Ulcerative colitis without complications, unspecified location; High risk medication use Social History Tobacco [...] place to sleep or slept in a retirement (including now)? No 05/03/2022 Sex and Gender Information Value Date Recorded Sex Assigned at Female 07/21/2021 4:56 PM EDT Gender Identity Female 07/21/2021 4:56 PM EDT Sexual Orientation Straight 07/21/2021 4: 56 PM EDT documented as of this encounter Last Filed Vital Signs Vital Sign Reading Time Taken Comments Blood Pressure 145/59 08/06/2022 9:14 AM EST Pulse 58 08/06/2022 9:14 AM EST Temperature 35.6 ??C (96.1 ??F) 08/06/2022 9:14 AM ES T Respiratory Rate - - Oxygen Saturation 100% 08/06/2022 9:14 AM EST Inhaled Oxygen Concentration - - Weight 76.7 kg (169 lb 3.2 oz) 08/06/2022 9:14 A M EST Height 166.4 cm (5' 5.5) 08/06/2022 9:14 AM EST Body Mass Index 27.73 08/06/2022 9:14 AM EST documented in this encounter Progress Notes * Gabe Fong MD - 08/06/2022 9:30 AM EST Rheumatology Follow-Up Video Note PCP: [...] has some concerns about her GI health Lisethra is not covered the ankylosing spondylitis associated with ulcerative colitis however she has been talking with her public interviewer about getting in for repeat colonoscopy but [...] angles bilaterally. (-)Radha Shober 13.5 not assessed Mid back pain - lateralize , poor pusture Extremities Shoulders: FROM, non-tender to palpation Elbows:FROM, (-)pain, (-)nodules Wrists: FROM, no swelling, non-tender Hands: No synovitis, no MCP compression tenderness, full claw and fist Hips: Last visit FROM, (-) radha, left hip sligh soft tissue swellin outer left hip. TTP, not warm.Rom within normal limits Knees: (-)effusions, non-tender ROM Ankles: FROM, non-tender, no swelling Feet: no MTP compression tenderness ?? Spine, shoulders, elbows, wrists, fingers, hips, knees [...] better or hip contiues to do better - mid abck MSK with reasuring MRI - cervical and xray thoracic can discss MRI thoracic - rec would be to try an alternative drug such as Remicade, Xeljanz, or Rinvoq however would need GI to weigh in and 2 -Other would be to continue Stelara and add Celebrex however patient reports not an option do to allergy and see if it exacerbate his her ulcerative colitis. Can consdier meloxicam and inomethicin But will wait for GI input. 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 High risk medication high feng of immun compromise Orders Placed This Encounter Procedures ??? Referral to Physical Therapy Return in about 8 weeks (around 10/01/2022) for Either In Person or Telehealth. > 49 minutes total with phone calls and documentation discussing documented in this encounter Plan of Treatment Upcoming Encounters Date Type Department Care Team (Late st Contact Info) Description 04/19/2024 10:00 AM EDT Hospital Encounter Non-[place] [address] Arrived 04/29/2024 9:50 AM [place] [phone] Luis Alfredo Velazquez MD [facility] [place] [address] 04/29/2024 9:50 AM [place] [address] Luis Alfredo Velazquez MD [facility] [place] [address] 06/07/2024 2:30 PM EDT TH Visit (TeleHealth) [place] [phone] Dajuan Rachel MD [facility] [place] [address] 07/02/2024 2:00 PM EDT Appointment Non-Invasive [place] [phone] Luis Alfredo Velazquez MD [facility] [place] [address] 07/02/2024 4:40 PM EDT Office Visit Cardiology at [address] [address] Luis Alfredo Velazquez MD [facility] [place] [address] Scheduled Referrals Name Type Priority Associated Diagnoses Orde r Schedule Referral to Physical Therapy Outpatient Referral Routine Neck pain Chronic bilateral thoracic back pain Ankylosing spondylitis of cervical region Ulcerative colitis without complications, unspecified location High risk medication use Ordered: 08/06/2022 documented as of this encounter Visit Diagnoses Diagnosis Neck pain Cervicalgia Chronic bilateral thoracic back pain Ankylosing spondylitis of cervical region Ankylosing spondylitis Ulcerative colitis without complications, unspecified location High risk medication use Encounter for long-term (current) use of other medications documented in this encounter Care Teams Gravity Meter Operator Relationship Specialty Start Date End Date Marcio Devlin DO [address] [place] [address] PCP - General Family Medicine 11/11/17 documented as of this encounter
--- OUTSIDE RECORDS SUMMARY | 2024-04-08 02:29 | XMS_ITS | Encounter Summary ---
Author Organization [facility] [place] [address] Care Team Providers Care Hull Drafter Name Role Phone Marcio Devlin DO Primary Care Provider [phone] Reason for Visit * Reason Comments Specialty Pharmacy Review Encounter Details Date Type Department Care Team (Late st Contact Info) Description 07/23/2021 Specialty [place] [id number] Adryan Crabtree, [facility] Social History Tobacco Use Types [...] as of this encounter Progress Notes * Adryan Crabtree - 07/23/2021 11:59 PM EST The [facility] has completed a benefits investigation for Kim Graff Shantel to review their eligibility to fill at [facility]. Per patient's medication list they are prescribed STELARA 90 MG/ML and the medication is not able to be filled at the [facility]. documented in this encounter Plan of Treatment Upcoming Encounters Date Type Department Care Team (Late st Contact Info) Description 04/19/2024 10:00 AM EDT Hospital Encounter Non-Invasive Cardiology Lab [place] [phone] Arrived 04/29/2024 9:50 AM EDT Appointment MRI at [address] Luis Alfredo Velazquez MD [facility] [place] [address] 04/29/2024 9:50 AM EDT Appointment MRI at [place] [phone] Luis Alfredo Velazquez MD [facility] [place] [place] [address] 06/07/2024 2:30 PM EDT TH Visit (TeleHealth) [place] [address] Dajuan Rachel MD [facility] GASTROENTEROLOG[place] [address] 07/02/2024 2:00 PM EDT Appointment Non-Invasive Cardiology Lab [place] [phone] Luis Alfredo Velazquez MD [facility] [place] [address] 07/02/2024 4:40 PM EDT Office Visit Cardiology at [place] [phone] Luis Alfredo Velazquez MD [facility] [address] [place] [phone] documented as of this encounter Visit Diagnoses Not on filedocumented in this encounter Care Teams Hull Drafter Relationship Specialty Start Date End Date Marcio Devlin DO [address] [place] [address] PCP - General Family Medicine 11/11/17 documented as of this encounter
--- OUTSIDE RECORDS SUMMARY | 2024-04-08 02:29 | XMS_ITS | Encounter Summary ---
Author Organization [facility] Address [facility] [place] [address] Care Team Providers Care Roller Staker Name Role Phone Marcio Devlin DO Primary Care Provider [phone] Encounter Details Date Type Department Care Team (Late st Contact Info) Description 03/23/2021 Refill [place] [address] Dajuan Rachel MD [facility] DR GASTRO[place] [address] Ulcerative pancolitis without complication Social History Tobacco [...] encounter Miscellaneous Notes * Telephone Encounter - Sierra Peters RPH - 03/23/2021 9:42 AM EDT Specialty Pharmacy Referral; Sierra Peters RPH Transfer of Services Kim Funes [address] [facility] [phone] Telephone Information: The - Specialty Pharmacy has received a prescription for Stelara for patient Ms. Kim Funes 60 y.o. (1960). Due to a mandate from the patient's insurer, the prescription needs to be filled with [facility]. We spoke to patient to notify of this change and to provide number to reach the new filling pharmacy. A copy of patient's medication profile was offered to the accepting pharmacy. Additional instructions provided to patient about transfer: yes - copay card if needed The patient has been advised to call the [facility] at [phone] with any questions or concerns on this referral. Thank you, Sierra Peters RPH 03/23/21 9:43 AM Patient understands no changes to current drug regimen were made at this time. documented in this encounter Plan of Treatment Upcoming Encounters Date Type Department Care Team (Late st Contact Info) Description 04/19/2024 10:00 AM EDT Hospital Encounter [place] [phone] Arrived 04/29/2024 9:50 AM EDT [place] [phone] Luis Alfredo Velazquez MD [facility] [place] [address] 04/29/2024 9:50 AM ED[place] [phone] Luis Alfredo Velazquez MD [facility] [place] [address] 06/07/2024 2:30 PM EDT TH Visit (TeleHealth) [place] [address] Dajuan Rachel MD [facility] DR GASTROENTER[place] [address] 07/02/2024 2:00 PM EDT Appointment [place] [phone] Luis Alfredo Velazquez MD [facility] [place] [address] 07/02/2024 4:40 PM EDT Office Visit Cardiology at [address] [phone] Luis Alfredo Velazquez MD [facility] [place] [address] documented as of this encounter Visit Diagnoses Diagnosis Ulcerative pancolitis without complication documented in this encounter Care Teams Roller Staker Relationship Specialty Start Date End Date Marcio Devlin DO [address] [place] [address] PCP - General Family Medicine 11/11/17 documented as of this encounter
--- OUTSIDE RECORDS SUMMARY | 2024-04-08 02:29 | XMS_ITS | Encounter Summary ---
Author Organization [facility] [place] [address] Care Team Providers Care Engineering Designer Name Role Phone Marcio Devlin DO Primary Care Provider [phone] Reason for Referral * Consultation (Routine) - Closed Specialty Diagnoses / Procedures Referred By Missy escalera Referred To Contact Orthopaedics Diagnoses Pain in left hip Mass of joint of left hip Gabe Fong MD [facility] [address] [facility] [place] [facility] [address] [place] [phone] Referral ID Status Reason Start Date Expiration Date V isits Requested Visits Authorized [id number] Closed Consult, Test & Treat 11/15/2021 11/15/2022 1 1 Reason for Visit * Reason Comments Follow-up Encounter Details Date Type Department Care Team (Late st Contact Info) Description 11/15/2021 9:00 AM EST Office [place] [address] Gabe Fong MD [facility] [place] [address] Pain in left hip; Ulcerative colitis without complications, unspecified location; Inflammatory arthropathy; Mass of joint of left hip Social History Tobacco Use [...] Sign Reading Time Taken Comments Blood Pressure 124/68 11/15/2021 8:46 AM EST Pulse 62 11/15/2021 8:46 AM EST Temperature 36.2 ??C (97.2 ??F) 11/15/2021 8 :46 AM EST Respiratory Rate 16 11/15/2021 8:46 AM EST Oxygen Saturation 100% 11/15/2021 8:4 6 AM EST Inhaled Oxygen Concentration - - Weight 78.2 kg (172 lb 6.4 oz) 11/16/19 8:46 AM EST with shoes Height 167.6 cm (5' 5.98) 11/15/2021 8 :46 AM EST Body Mass Index 27.84 11/15/2021 8:46 AM EST documented in this encounter Progress Notes * Gabe Fong MD - 11/15/2021 9:00 AM EST Rheumatology Follow-Up Video Note PCP: [...] reported or known from current medication regimen. recentlys withc to stelara and AZA inflammatory markers are elevated Recent ridges on the nails. Left hip some what swelling, over troch region painful . ROm inact not unstable nstable No other joitn involemtn UC stable. OS: General (-)fevers, (-)chills, (-)night sweats HEENT (-)vision change, (-)tinnitus, (-)epistaxis, (-)sore throat, (-)bleeding gums, (-)oral ulcers, (-)dry eyes, (-)dry mouth, (-)dysphagia, (-)GERD, (-)photo sensitivity, (-)Hair loss, (-)vertigo CVS (-)chest pain, (-)palpitations, (-)pedal edema, (-)PND, (-)orthopnea. Pulm (-)shortness of breath, (-)MARK, (-)wheezes, (-)cough, (-)pleuritic pain GI (-)hematuria, (-)dysuria, (-)frequency, (-)nocturia, (-)genital ulcers MS (-)muscle weakness, (-)paralysis, (-)joint pain, (-)hx of arthritis Endo (-)thyroid disorders, (-)diabetes, (-)temperature intolerance. Neuro (-)focal weakness, (-)paresthesias, (-)gait instability. Skin (-)Raynaud's (-), ulcers Psych (-) mood disorder. Patient's medications, allergies, past medical, surgical, social and family histories were reviewedand updated Patient's medications, allergies, past medical, surgical, social and family histories were reviewedand updated as appropriate. Physical Exam: Physical Exam: BP 124/68 Pulse 62 Temp 36.2 ??C (97.2 ??F) (Temporal) Resp 16 Ht 167.6 cm (5' 5.98) Wt 78.2 kg (172 lb 6.4 oz) Comment: with shoes SpO2 100% BMI 27.84 kg/m?? General: NAD HEENT: Mucous membranes are moist, no oral mucosal ulcerations, temporal artery non-palpable Neck: Supple, no lymphadenopathy, full range of motion. Cardiovascular: RR, (-)murmurs, rubs, or gallops. Lungs: Clear to auscultation bilaterally. (-)R/R/W Abdomen: Soft, non tender, non distended, + bowel sounds, no hepatosplenomegaly. Neuro: Alert and oriented x3. Cranial nerves II through XII grossly intact. - Strength 5/5 throughout, -Sensation to light touch is grossly normal throughout. DTRs are 2+ throughout. Toes down going bilaterally. Skin: (-)ulcers, (-)rash \ Vascular: Pulses are equal in all extremities. MSK Back: Non tender over the spine and costovertebral angles bilaterally. (-)Radha Extremities Shoulders: FROM, non-tender to palpation Elbows:FROM, (-)pain, (-)nodules Wrists: FROM, no swelling, non-tender Hands: No synovitis, no MCP compression tenderness, full claw and fist Hips: FROM, (-) radha, left hip sligh soft tissue swellin outer left hip. Mild TTP, not warm Knees: (-)effusions, non-tender ROM Ankles: FROM, non-tender, no swelling Feet: no MTP compression tenderness Spine, shoulders, elbows, wrists, fingers, hips, knees and ankles; no active swelling, tenderness or synovitis at any joint. No soft tissue nodules. Labs: Lab Results Component Value Date WBC 7.0 11/09/2019 HGB 12.9 11/09/2019 HCT 40.2 11/09/2019 PLATELET 241 11/09/2019 Labs from 08/31/2018: CBC w/ diff: WNL CMP: WNL Imaging: Ostepneia on Dexa IMPRESSION The measurements [...] related with ankylosing spondylitis- - UC quite appears quite except hip pain a site of rpelcement Hip Replacement - with trochanteric hip pain- rec orth eval will get XR- will likley NEED MRI - refer to ortho . High risk medication high feng of immun compromise lasbs q monthlyas we titrate up AZA AZA monitoring Medication monitoring in new start or dose changes should occur every 2 - 4 weeks once a stable dose is achieved or on chronic regimen labs are to be done every 3 months for monitoring Patient reminded of adverse events and side effects of azathioprine including interactions with Xanthine oxidase inhibitor such as allopurinol and febuxistat and these medication be avoided. Also gastrointestinal symptoms such as anorexia nausea vomiting can occur but generally occur early on and are dose-related's. The risk of bone marrow suppression such as leukopenia & thrombocytopenia, the increased risk of opportunistic infections as well as viral infections and reactivation of viral hepatitis has been reported. The small increase risk in malignancy and rheumatoid arthritis patients to ensure the patient is uptodate on all cancer screening and to reports weight loss.and night sweats.. Discussed risk of and infertility. Greater then 50 minutes was spent with this patient reviewing notes as well as, & different treatment options and pros and cons to both. Unfortunately explained to the patient there is no perfectalgorithm for choosing a medication No orders of the defined types were placed in this encounter. No follow-ups on file. documented in this encounter Plan of Treatment Upcoming Encounters Date Type Department Care Team (Late st Contact Info) Description 04/19/2024 10:00 AM EDT Hospital Encounter Non-[place] [phone] Arrived 04/29/2024 9:50 AM EDT [place] [phone] Luis Alfredo Velazquez MD [facility] [place] [address] 04/29/2024 9:50 AM EDT Appointment MRI at [place] [phone] Luis Alfredo Velazquez MD [facility] [place] [address] 06/07/2024 2:30 PM EDT TH Visit (TeleHealth) Gastroenterology at [place] [phone] Dajuan Rachel MD [facility] [place] [address] 07/02/2024 2:00 PM EDT Appointment Non-Invasive Cardiology Lab [place] [phone] Luis Alfredo Velazquez MD [facility] [place] [address] 07/02/2024 4:40 PM EDT Office Visit Cardiology at [address] [phone] Luis Alfredo Velazquez MD [facility] [place] [address] Scheduled Referrals Name Type Priority Associated Diagnoses Order Schedule Referral to Orthopaedics Outpatient Referral Routine Pain in left hip Mass of joint of left hip Ordered: 11/15/2021 documented as of this encounter Results * XR Pelvis & Lat Hip Left (Generic) (11/21/2021 3:04 PM EST) Anatomical Region Laterality Modality Pelvis, Hip Left Digital Radiogra phy Impressions 11/21/2021 3:55 PM EST 1. ??Unchanged LEFT total hip arthroplasty. 2. ??RIGHT hip osteoarthropathy with moderate joint space narrowing. Thank you for letting us participate in the care of this patient. ??If you are a health care provider and have any questions regarding this report, please contact the number below. ??For patients who have questions please contact the health life care planner that requested your imaging first. ? Electronically signed by: Dimple Viera MD, [facility] ([phone]), at 11/21/2021 3:55 PM Narrative 11/21/2021 3:55 PM EST EXAMINATION: XR PELVIS AND LAT HIP LEFT (GENERIC) CLINICAL HISTORY: recent swelling of the left hip TECHNIQUE: AP pelvis and 2 views of LEFT hip COMPARISON: Multiple examinations since 2005. FINDINGS: LEFT ??HIP A total hip arthroplasty is present. Alignment: The prosthesis is unchanged in alignment. Complication: There is no fracture. A 3.5 mm radiolucency surrounding the proximal femoral stem, zone 1, is unchanged since 2019. Soft tissues: Pelvis Bones No acute fracture RIGHT ??HIP, single view: Moderate joint space narrowing and osteophyte formation. No fracture or dislocation. Soft tissues Normal SI joints and pubic symphysis-normal spacing and alignment with small osteophytes. Procedure Note Dimple Viera MD - 11/21/2021 EXAMINATION: XR PELVIS AND LAT HIP LEFT (GENERIC) CLINICAL HISTORY: recent swelling of the left hip TECHNIQUE: AP pelvis and 2 views of LEFT hip COMPARISON: Multiple examinations since 2005. FINDINGS: LEFT HIP A total hip arthroplasty is present. Alignment: The prosthesis is unchanged in alignment. Complication: There is no fracture. A 3.5 mm radiolucency surrounding the proximal femoral stem, zone 1, is unchanged since 2019. Soft tissues: Pelvis Bones No acute fracture RIGHT HIP, single view: Moderate joint space narrowing and osteophyte formation. No fracture or dislocation. Soft tissues Normal SI joints and pubic symphysis-normal spacing and alignment with small osteophytes. IMPRESSION 1. Unchanged LEFT total hip arthroplasty. 2. RIGHT hip osteoarthropathy with moderate joint space narrowing. Thank you for letting us participate in the care of this patient. If youare a health care provider and have any questions regarding this report,please contact the number below. For patients who have questions please contactthe health life care planner that requested your imaging first. Electronically signed by: Dimple Viera MD, [facility]([phone]), at 11/21/2021 3:55 PM Gabe Fong MD IMG DX ORDERABLES documented in this encounter Visit Diagnoses Diagnosis Pain in left hip Pain in joint, pelvic region and thigh Ulcerative colitis without complications, unspecified location Inflammatory arthropathy Arthropathy, unspecified, site unspecified Mass of joint of left hip Pain in left hip Pain in joint, pelvic region and thigh Ulcerative colitis without complications, unspecified location Inflammatory arthropathy Arthropathy, unspecified, site unspecified documented in this encounter Care Teams Engineering Designer Relationship Specialty Start Date End Date Marcio Devlin DO [address] [place] [address] PCP - General Family Medicine 11/11/17 documented as of this encounter
--- OUTSIDE RECORDS SUMMARY | 2024-04-08 02:29 | XMS_ITS | Encounter Summary ---
Author Organization [facility] Address [facility] [place] [address] Care Team Providers Care Out Patient Therapist Name Role Phone Marcio Devlin DO Primary Care Provider [phone] Encounter Details Date Type Department Care Team (Latest Contact Info) Description 11/21/2021 2:45 PM EST - 11/21/2021 11:59 PM EST Hospital Encounter XRay at [address] [place] [phone] Gabe Fong MD [facility] [place] [address] Pain in left hip; Ulcerative colitis without complications, unspecified location; Inflammatory arthropathy Discharge Disposition: Home Social History Tobacco Use [...] by mouth daily. SUMAtriptan (IMITREX) 20 mg/actuation [place], Non-Aerosol 1 spray as needed. 11/03/2017 metFORMIN [...] mg tablet 1000MG, PO, Once daily 10/15/2010 loratadine (Claritin) 10 mg Tablet Take by mouth. 04/05/2016 10/07/2023 Calcium Carbonate-Vitamin D3 500 mg-10 mcg (400 unit) Tablet Take by mouth 2 times daily. 12/24/2012 10/07/2023 azaTHIOprine (Imuran) 50 mg Tablet Take 1 tablet by mouth daily. 60 tablet 11/15/2021 12/25/2021 Stelara 90 mg/mL subcutaneous injectionIndications:U lcerative pancolitis without complication INJECT 1 ML UNDER THE SKIN EVERY 8 WEEKS 1 mL 5 09/04/2021 02/28/2022 clindamycin (CLEOCIN T) 1 % LotionIndications:Foll iculitis [...] AM EDT Hospital Encounter Non-[place] [phone] Arrived 04/29/2024 9:50 [place] [phone] Luis Alfredo Velazquez MD [facility] [address] 04/29/2024 9:50 [place] [phone] Luis Alfredo Velazquez MD [facility] [place] [address] 06/07/2024 2:30 PM EDT TH Visit (TeleHealth) [place] [phone] Dajuan Rachel MD [facility] [place] [address] 07/02/2024 2:00 PM EDT Appointment Non-[place] [phone] Luis Alfredo Velazquez MD [facility] [place] [address] 07/02/2024 4:40 PM EDT Office Visit Cardiology at [address] [phone] Luis Alfredo Velazquez MD [facility] [place] [address] documented as of this encounter Procedures Procedure Name Priority Date/Time Associated Diagnosis Comments XR PELVIS AND LAT HIP LEFT Routine 11/21/2021 3:04 PM EST Pain in left hip Ulcerative colitis without complications, unspecified location Inflammatory arthropathy documented in this encounter Results * XR Pelvis & [...] have questions please contact the health care transport nurse that requested your imaging first. ? Electronically signed by: Dimple Viera MD, [facility] ([phone]), at 11/21/2021 3:55 PM Narrative 11/21/2021 3:55 [...] who have questions please contactthe health care transport nurse that requested your imaging first. Electronically signed by: Dimple Viera MD, [facility]([phone]), at 11/21/2021 3:55 PM Gabe Fong MD IMG DX ORDERABLES documented in this encounter Visit Diagnoses Diagnosis Pain in left hip Pain in joint, pelvic region and thigh Ulcerative colitis without complications, unspecified location Inflammatory arthropathy Arthropathy, unspecified, site unspecified documented in this encounter Care Teams Out Patient Therapist Relationship Specialty Start Date End Date Marcio Devlin DO [address] [place] [address] PCP - General Family Medicine 11/11/17 documented as of this encounter
--- OUTSIDE RECORDS SUMMARY | 2024-04-08 02:29 | XMS_ITS | Encounter Summary ---
Author Organization [facility] Address [facility] [place] [address] Care Team Providers Care Horticulture Instructor Name Role Phone Marcio Devlin DO Primary Care Provider [phone] Encounter Details Date Type Department Care Team (Late st Contact Info) Description 01/18/2022 9:30 AM EDT Office Visit Rheumatology at [facility] [place] [address] [address]abe Fong MD [place] [address] Chronic left hip pain; Ankylosing spondylitis of cervical region; Neck pain; Ulcerative colitis without complications, unspecified location; Pain in left hip; Chronic midline low back pain without sciatica; High risk medication use; Inflammatory arthropathy Social History Tobacco Use Types [...] Sign Reading Time Taken Comments Blood Pressure 129/51 01/18/2022 9:16 AM EDT Pulse 62 01/18/2022 9:16 AM EDT Temperature 35.8 ??C (96.5 ??F) 01/18/2022 9:16 AM ED T Respiratory Rate - - Oxygen Saturation 100% 01/18/2022 9:16 AM EDT Inhaled Oxygen Concentration - - Weight 77.9 kg (171 lb 12.8 oz) 01/18/2022 9:16 AM EDT Height 166.4 cm (5' 5.5) 01/18/2022 9:16 AM EDT Body Mass Index 28.15 01/18/2022 9:16 AM EDT documented in this encounter Progress Notes * Gabe Fong MD - 01/18/2022 9:30 AM EDT Rheumatology Follow-Up Video Note [...] had serena episdoe of syncope at work She is on low-dose dose azathioprine we did not increase the dose. She notces more hip pain seen by the hip. Discussed getting an injection. She does report since coming off the azathioprine to be more arthralgic. No noted synovitis, dactylitis, uveitis, Or IBD seems to be under good control Inflammatory markers have stayed elevated Rheumatic history (x) means positive Iritis Dactylitis [...] reviewedand updated as appropriate. Physical Exam: BP 129/51 Pulse 62 Temp 35.8 ??C (96.5 ??F) (Temporal) Ht 166.4 cm (5' 5.5) Wt 77.9 kg (171 lb 12.8 oz) SpO2 100% BMI 28.15 kg/m?? General: NAD HEENT: Mucous membranes are [...] and costovertebral angles bilaterally. (-)Radha Shober 13.5 Extremities Shoulders: FROM, non-tender to palpation Elbows:FROM, (-)pain, (-)nodules Wrists: FROM, no swelling, non-tender Hands: No synovitis, no MCP compression tenderness, full claw and fist Hips: FROM, (-) radha, left hip sligh soft tissue swellin outer left hip. TTP, not warm. Rom withinnormal limits Knees: (-)effusions, non-tender ROM Ankles: FROM, non-tender, no swelling Feet: no MTP compression tenderness Spine, shoulders, elbows, wrists, fingers, hips, knees and ankles; no active swelling, tenderness or synovitis at any joint. No soft tissue nodules. Labs: Latest Reference Range & Units 12/13/21 10:05 WBC 4.0 - 9.5 x10(3)/mcL 7.1 RBC 4.00 - 5.21 x10(6)/mcL 4.60 Hemoglobin 11.7 - 15.5 g/dL 13.5 Hematocrit 35.7 - 45.8 % 42.1 MCV 82.6 - 94.4 fL 91.5 MCH 27.1 - 32.0 pg 29.3 MCHC 31.7 - 35.0 g/dL 32.1 RDWSD 37.0 - 46.0 fL 47.9 (H) RDWCV 11.5 - 14.1 % 14.4 (H) Platelets 145 - 357 x10(3)/mcL 283 MPV 7.6 - 12.9 fL 9.9 NRBC % Auto % 0.0 NRBC Abs Auto 0.000 - 0.000 x10(3)/mcL 0.000 Neutr Abs (ANC) 1.70 - 6.10 x10(3)/mcL 4.27 Neutrophils % % 60.0 Immature Gran % % 0.30 [1] Lymphocytes % % 28.7 Monocytes % % 8.4 Eosinophils % % 2.2 Basophils % % 0.4 Melanie Gran Abs 0.00 - 0.04 x10(3)/mcL 0.02 Lymphocytes Abs 0.9 - 3.2 x10(3)/mcL 2.0 Monocyte Abs 0.3 - 0.9 x10(3)/mcL 0.6 Eosinophils Abs 0.0 - 0.4 x10(3)/mcL 0.2 Basophils Abs 0.0 - 0.1 x10(3)/mcL 0.0 Sed Rate 2 - 39 mm/hr 70 (H) [2] Creatinine 0.70 - 1.20 mg/dL 0.88 Estimated GFR >=60 mL/min/1.73 m?? 71 [3] Total Protein 6.1 - 8.0 g/dL 8.4 (H) Albumin 3.2 - 5.2 g/dL 4.3 Total Bilirubin 0.2 - 1.3 mg/dL 0.3 Bili, Direct 0.0 - 0.3 mg/dL 0.1 Alk Phos 35 - 105 unit/L 134 (H) AST 0 - 30 unit/L 23 ALT 0 - 30 unit/L 17 Chol, Total mg/dL 146 [4] HDL mg/dL 42 [5] Chol/HDL Ratio ratio 3.5 Triglycerides mg/dL 343 [6] LDL Cholesterol mg/dL 35 [7] Lipid Interpretation See Note [8] TPMT Activity Profile, RBC Normal CRP <=4.9 mg/L 23.9 (H) Hep B Core Ab Negative Negative ( Imaging: Ostepneia on Dexa IMPRESSION The measurements [...] related with ankylosing spondylitis- - UC quite -concern for adrenal my concerns-that she has had progression in her AMS - Concern is progressing Malcom appears quite except hip pain a site of replacement - discussed increasing AZA - though little benefit from stelera- rec switching to Xeljanz or Remicade or Rinvoq. Hip Replacement - with trochanteric hip pain- rec orth eval will get XR- currnelty in PT- MRI ordered not scheduled . High risk medication high feng of immun compromise lasbs q monthlyas we titrate up AZA DiscontinuedAZA monitoring Greater then 40 minutes was spent with this patient reviewing notes as well as, & different treatment options and pros and cons to both. Unfortunately explained to the patient there is no perfectalgorithm for choosing a medication Orders Placed This Encounter Procedures ??? CBC (with Diff) ??? Comprehensive metabolic panel (non-fasting) ??? CRP, acute inflammation ??? Sedimentation rate Return in about 4 weeks (around 02/15/2022) for In Person. documented in this encounter Plan of Treatment Upcoming Encounters Date Type Department Care Team (Late st Contact Info) Description 04/19/2024 10:00 AM EDT Hospital Encounter Non-[place] [phone] Arrived 04/29/2024 9:50 AM EDT Appointment MRI at [place] [phone] Luis Alfredo Velazquez MD [facility] [place] [address] 04/29/2024 9:50 AM EDT [place] [address] Luis Alfredo Velazquez MD [facility] [place] [address] 06/07/2024 2:30 PM EDT TH Visit (TeleHealth) Gastroenterology at [place] [phone] Dajuan Rachel MD [facility] DR GASTROENTEROLOGY DEPT. [place], [place] [phone] 07/02/2024 2:00 PM EDT Appointment Non-[place] [address] Luis Alfredo Velazquez MD [facility] [place] [address] 07/02/2024 4:40 PM EDT Office Visit Cardiology at [address] [address] Luis Alfredo Velazquez MD [facility] [place] [address] documented as of this encounter Visit Diagnoses Diagnosis Chronic left hip pain Pain in joint, pelvic region and thigh Ankylosing spondylitis of cervical region Ankylosing spondylitis Neck pain Cervicalgia Ulcerative colitis without complications, unspecified location Pain in left hip Pain in joint, pelvic region and thigh Chronic midline low back pain without sciatica High risk medication use Encounter for long-term (current) use of other medications Inflammatory arthropathy Arthropathy, unspecified, site unspecified documented in this encounter Care Teams Horticulture Instructor Relationship Specialty Start Date End Date Marcio Devlin DO [address] [place] [address] PCP - General Family Medicine 11/11/17 documented as of this encounter
--- OUTSIDE RECORDS SUMMARY | 2024-04-08 02:29 | XMS_ITS | Encounter Summary ---
Author Organization [facility] [place] [address] Care Team Providers Care Tools Administrator Name Role Phone Marcio Devlin DO Primary Care Provider [phone] Reason for Visit * Reason Comments Specialty Pharmacy Review Stelara 90mg/m l syringe Encounter Details Date Type Department Care Team (Late st Contact Info) Description 12/13/2021 Specialty [place] [phone] Celeste Mayes, [facility] Social History Tobacco Use Types Packs/Day [...] as of this encounter Progress Notes * Celeste Mayes - 12/13/2021 11:59 PM EDT The [facility] has completed a benefits investigation for Kim Graff Shantel to review their eligibility to fill at [facility]. Per patient's medication list they are prescribed Stelara 90mg/ml and the medication is not able to be filled at the [facility]. documented in this encounter Plan of Treatment Upcoming Encounters Date Type Department Care Team (Late st Contact Info) Description 04/19/2024 10:00 AM EDT Hospital Encounter Non-Invasive Cardiology Lab [place] [phone] Arrived 04/29/2024 9:50 AM EDT Appointment MRI at [address] Luis Alfredo Velazquez MD [facility] [place] [address] 04/29/2024 9:50 AM EDT Appointment MRI at [place] [phone] Luis Alfredo Velazquez MD [facility] [place] [address] 06/07/2024 2:30 PM EDT TH Visit (TeleHealth) Gastroenterology at [place] [phone] Dajuan Rachel MD [facility] [place] [address] 07/02/2024 2:00 PM EDT Appointment Non-Invasive [place] [phone] Luis Alfredo Velazquez MD [facility] [place] [address] 07/02/2024 4:40 PM EDT Office Visit Cardiology at [address] [phone] Luis Alfredo Velazquez MD [place] [address] documented as of this encounter Visit Diagnoses Not on filedocumented in this encounter Care Teams Tools Administrator Relationship Specialty Start Date End Date Marcio Devlin DO [address] [place] [address] PCP - General Family Medicine 11/11/17 documented as of this encounter
--- OUTSIDE RECORDS SUMMARY | 2024-04-08 02:29 | XMS_ITS | Encounter Summary ---
Author Organization [facility] [place] [address] Care Team Providers Care Apprentice Electrician Name Role Phone Marcio Devlin DO Primary Care Provider [phone] Encounter Details Date Type Department Care Team (Latest Contact Info) Description 09/17/2021 2:30 PM EST TH Visit (TeleHealth) [place] [phone] Dajuan Rachel MD [facility] [place] [address] Ulcerative pancolitis with complication Social History Tobacco [...] * Patient Instructions* Dajuan Rachel MD - 09/17/2021 2:30 PM EST - Continue Stelara every 8 weeks - Calprotectin at [facility] - Continue Labs surveillance at [facility] - will defer to Dr Fong but would recommend CBC, LFTs, every 2 weeks for 2 months. - Plan for Colonoscopy within next 3-5 months - Follow-up at colonoscopy and in the office or via telehealth with Delilah Morrow APRN in 6 months documented in this encounter Progress Notes * Dajuan Rachel MD - 09/17/2021 2:30 PM EST [facility] Gastroenterology Telehealth Visit Primary care provider: Marcio Devlin, DO Other providers: Dr. Rachel Chief Complaint: ulcerative colitis f/u Problem List Patient Active Problem List Diagnosis Date Noted ??? Osteopenia since DXA scan in 1995 (T-score -1.7 at the spine) 04/27/2020 Class: Chronic Chronic ??? High risk medication use 06/01/2019 ??? Inflammatory arthropathy 06/01/2019 ??? Primary osteoarthritis of right hip 02/23/2019 ??? Prolapse of female pelvic organs 03/10/2018 ??? Obesity (BMI 30.0-34.9) 02/24/2018 ??? History of migraine headaches 02/24/2018 ??? Mild asthma 02/24/2018 ??? Type 2 diabetes mellitus without complication, without long-term current use of insulin 02/24/2018 ??? MÉNDEZ (nonalcoholic steatohepatitis) 02/21/2011 ??? Lipid disorder 02/21/2011 ??? Ankylosing spondylitis 02/21/2011 ??? Hypertension 02/21/2011 ??? GERD (gastroesophageal reflux disease) 02/21/2011 ??? Ulcerative colitis ??? DIFFICULT AIRWAY Resolved Hospital Problems No resolved problems to display. ??? Ulcerative colitis ? Overview Note: ? diagnosed in 1993 with L-sided disease ?? Treated with sulfasalazine 3 g PO qd ?? Colonoscopy 2001 - mild L sided disease ?? Colonoscopy 09/19/08 (Dr. Shady Luz at [facility]) for surveillance for dysplasia. Areas of skip inflammation without ulceration in the transverse colon, descending colon, and the rectosigmoid. Upon attempt at retroflexion, a rectal mucosal tear requiring subsequent admission with 10 days antibiotics. Biopsies: normal ileum, non-specific eosinophilic infiltration of the cecum, chronic inactive colitis in the descending, rectum, sigmoid, and rectum. The transverse colon revealed moderate to severe chronic, active colitis. ?? Ankylosing spondylitis diagnosed ~1991; also history of iritis ?? Escalated to weekly Humira 11/2019. ADA (garcía) from 6 q 2wk to 12.7 qwk, as well as BID SSZ ?? Colonoscopy Oct 2019: normal rectum, mod-severe inflammation and narrowing from 6-25 cm from theanus, normal remainder of colon. Path: mild active chronic colitis in ac/tc/dc/sc, severe active colitis with ulceration in proximal rectum ?? Colonoscopy December 2020 - severe involvement of L colon, [id number] involvement of transverse and R colon. Worse compared to last exam. SSA at hepatic flexure ?? Adalimumab level (bronx) was 12.7 ?? Switched to Stelara ( 03/21/21, first infusion dose) d/t Lost of response to Humira. Stopped Uceris and sulfasalazine in January 2021. ? CURRENT MEDS: Stelara ( 03/21/21, first infusion dose) ?? Interval history: - Last visit with Delilah Morrow [employer]OR 05/15/2021. - Feels much better since starting Stelara - 2 to 3 stools per day - mostly formed. - No rectal bleeding. - There is no abd pain - No more leakage/incontinence and no nocturnal symptoms - Eating well - No n/v - No f/c - Stelara did not seem to be helping pain from . Was in contact with Dr. Fong's office and started AZA 50 mg PO qd about 2 weeks ago. Feels that it is helping somewhat already. Review of systems as in the HPI, the rest of the review of systems were negative. Past Medical History, Social History and Family History is unchanged. Allergies/Adverse reactions Ibuprofen, Celebrex [celecoxib], Lodine [etodolac], Amoxicillin-pot clavulanate, Cephalexin, and Doxycycline No Physical Examination Performed Recent labs Reviewed [facility] labs from 08/15/2021 CBC nl. Aphos mildly elevated at 118. CRP 5.19 mg/dl. Assessment/Plan: Ms. Funes is a 61 y.o. patient with ulcerative colitis, switched to Stelara ( 03/21/21, first infusion dose) as she has lost response to Humira. Doing very well symptomatically. CRP elevated but might be related to . Suggested having calprotectin at [facility]. If elevated, would consider decreasingStelara dosing interval to 6 weeks prior to colonoscopy. Restaging colo to be done within the next 3-5 months. Plans: - Continue Stelara every 8 weeks - Calprotectin at [facility] - Continue Labs surveillance at [facility] - will defer to Dr Fong but would recommend CBC, LFTs, every 2 weeks for 2 months. - Plan for Colonoscopy within next 3-5 months - Follow-up at colonoscopy and in the office or via telehealth with Delilah Morrow APRN in 6 months I spent 30 min today reviewing the chart preparing for this visit, counseling the patient [id number] on the issues outlined above, and documenting an implementing the plan. Ms. Funes was in [place]. Freddy Rachel MD Boiling Off Winderculture manager Co-Director, [facility] Section of Gastroenterology [place] [address] documented in this encounter Plan of Treatment Upcoming Encounters Date Type Department Care Team (Late st Contact Info) Description 04/19/2024 10:00 AM EDT Hospital Encounter Non-[place] [phone] Arrived 04/29/2024 9:50 AM EDT [place] [phone] Luis Alfredo Velazquez MD [facility] [place] [address] 04/29/2024 9:50 AM EDT [place] [phone] Luis Alfredo Velazquez MD [facility] [place] [address] 06/07/2024 2:30 PM EDT TH Visit (TeleHealth) Gastroenterology at [place] [phone] Dajuan Rachel MD [facility] [place] [address] 07/02/2024 2:00 PM EDT Appointment Non[place] [phone] Luis Alfredo Velazquez MD [facility] [place] [address] 07/02/2024 4:40 PM EDT Office Visit Cardiology at [address] [address] Luis Alfredo Velazquez MD [facility] [place] [address] Scheduled Orders Name Type Priority Associated Diagnoses Orde r Schedule ENDOSCOPY CASE REQUEST: COLONOSCOPY, DIAGNOSTIC Procedures Routine Ulcerative pancolitis with complication Ordered: 09/17/2021 documented as of this encounter Visit Diagnoses Diagnosis Ulcerative pancolitis with complication documented in this encounter Care Teams Apprentice Electrician Relationship Specialty Start Date End Date Marcio Devlin DO [address] [place] [address] PCP - General Family Medicine 11/11/17 documented as of this encounter
--- OUTSIDE RECORDS SUMMARY | 2024-04-08 02:29 | XMS_ITS | Encounter Summary ---
Author Organization [facility] [place] [address] Care Team Providers Care Bar Useful Or Busser Name Role Phone Marcio Devlin DO Primary Care Provider [phone] Reason for Visit * Reason Comments Medication Refill Encounter Details Date Type Department Care Team (Late st Contact Info) Description 09/04/2021 Refill [place] [address] Dajuan Rachel MD [facility] [place] [address] Ulcerative pancolitis without complication Social History Tobacco [...] Hospital Encounter Non-[place] [address] Arrived 04/29/2024 9:50 AM EDT Appointment MRI at [place] [address] Luis Alfredo Velazquez MD [facility] [place] [address] 04/29/2024 9:50 AM EDT Appointment MRI at [place] [address] Luis Alfredo Velazquez MD [facility] [place] [address] 06/07/2024 2:30 PM EDT TH Visit (TeleHealth) Gastroenterology at [place] [address] Dajuan Rachel MD [facility] [place] [address] 07/02/2024 2:00 PM EDT Appointment Non-Invasive Cardiology Lab [address]1000 Luis Alfredo Velazquez MD [facility] [place] [address] 07/02/2024 4:40 PM EDT Office Visit Cardiology at [place] [phone] Luis Alfredo Velazquez MD [facility] [place] [address] documented as of this encounter Visit Diagnoses Diagnosis Ulcerative pancolitis without complication documented in this encounter Care Teams Bar Useful Or Busser Relationship Specialty Start Date End Date Marcio Devlin DO [address] [place] [address] PCP - General Family Medicine 11/11/17 documented as of this encounter
--- OUTSIDE RECORDS SUMMARY | 2024-04-08 02:29 | XMS_ITS | Encounter Summary ---
Author Organization [facility] [place] [address] Care Team Providers Care Portrait Artist Name Role Phone Marcio Devlin DO Primary Care Provider [phone] Reason for Visit * Reason Onset Date Comments Medication Refill 09/04/2021 Encounter Details Date Type Department Care Team (Late st Contact Info) Description 09/04/2021 [place] [address] Lola Haley, [facility] [place] [address] Social History Tobacco Use Types Packs/Day Years [...] AM EDT Hospital Encounter Non-[place]vasive [place] [address] Arrived 04/29/2024 9:50 AM EDT Appointment MRI at [place] [address] Luis Alfredo Velazquez MD [facility] [place] [address] 04/29/2024 9:50 AM EDT Appointment MRI at [place] [address] Luis Alfredo Velazquez MD [facility] [place] [address] 06/07/2024 2:30 PM EDT TH Visit (TeleHealth) Gastroenterology at [place] [address] Dajuan Rachel MD [facility] [place] [address] 07/02/2024 2:00 PM EDT Appointment Non-Invasive Cardiology Lab [address]1000 Luis Alfredo Velazquez MD [facility] [place] [address] 07/02/2024 4:40 PM EDT Office Visit Cardiology at [place] [phone] Luis Alfredo Velazquez MD [facility] [place] [address] documented as of this encounter Visit Diagnoses Not on filedocumented in this encounter Care Teams Portrait Artist Relationship Specialty Start Date End Date Marcio Devlin DO [address] [place] [address] PCP - General Family Medicine 11/11/17 documented as of this encounter
--- OUTSIDE RECORDS SUMMARY | 2024-04-08 02:29 | XMS_ITS | Encounter Summary ---
Author Organization [facility] [place] [address] Care Team Providers Care Price Changer Name Role Phone Marcio Devlin DO Primary Care Provider [phone] Encounter Details Date Type Department Care Team (Late st Contact Info) Description 01/18/2022 [place] [phone] Janki Abdi Social History Tobacco Use Types [...] * Telephone Encounter - Janki Abdi - 01/18/2022 10:28 AM EDT At exit, I looked into Dr Fong's MRI order. I have reached out to MRI dept who is calling [employer] to give them the patient's information and have them call her to schedule vianey. documented in this encounter Plan of Treatment Upcoming Encounters Date Type Department Care Team (Late st Contact Info) Description 04/19/2024 10:00 AM EDT Hospital Encounter [place] [address] Arrived 04/29/2024 9:50 AM EDT Appointment MRI at [address]1000 Luis Alfredo Velazquez MD [facility] [place] [address] 04/29/2024 9:50 AM EDT Appointment MRI at [place] [address] Luis Alfredo Velazquez MD [facility] [place] [address] 06/07/2024 2:30 PM EDT TH Visit (TeleHealth) Gastroenterology at [address]1000 Dajuan Rachel MD [facility] [place] [address] 07/02/2024 2:00 PM EDT Appointment Non-Invasive Cardiology Lab [place] [phone] Luis Alfredo Velazquez MD [facility] [place] [address] 07/02/2024 4:40 PM EDT Office Visit Cardiology at [place] [phone] Luis Alfredo Velazquez MD [facility] [place] [address] documented as of this encounter Visit Diagnoses Not on filedocumented in this encounter Care Teams Price Changer Relationship Specialty Start Date End Date Marcio Devlin DO [address] [place] [address] PCP - General Family Medicine 11/11/17 documented as of this encounter
--- OUTSIDE RECORDS SUMMARY | 2024-04-08 02:29 | XMS_ITS | Encounter Summary ---
[place] [address] Care Team Providers Care Line Service Attendant Name Role Phone Marcio Devlin DO Primary Care Provider [phone] Encounter Details Date Type Department Care Team (Latest Contact Info) Description 08/06/2021 10:30 AM EST Laboratory Appointment Lab [address] [place] [address] Ulcerative colitis without complications, unspecified location; High risk medication use; Inflammatory arthropathy; Morning [...] AM EDT Hospital Encounter Non-[place] [phone] Arrived 04/29/2024 9:50 AM [place] [phone] Luis Alfredo Velazquez MD [facility] [place] [address] 04/29/2024 9:50 AM [place] [phone] Luis Alfredo Velazquez MD [facility] [place] [address] 06/07/2024 2:30 PM EDT TH Visit (TeleHealth) Gastroenterology at [place] [phone] Dajuan Rachel MD [facility] [place] [address] 07/02/2024 2:00 PM EDT Appointment Non-Invasive Cardiology Lab [place] [phone] Luis Alfredo Velazquez MD [facility] [place] [address] 07/02/2024 4:40 PM EDT Office Visit Cardiology at [address] [phone] Luis Alfredo Velazquez MD [facility] [place] [address] documented as of this encounter Procedures Procedure Name Priority Date/Time Associated Diagnosis Comments HC VENIPUNCTURE Routine 08/06/2021 10:15 AM EST Ulcerative colitis without complications, unspecified location High risk medication use Inflammatory arthropathy Morning joint stiffness documented in this encounter Results * [id number] Qualitative (08/06/2021 10:15 AM EST) G6PD Qual Negative screening for G6PD deficiency. [facility] Blood 08/06/2021 10:1 5 AM EST 08/06/2021 10:41 AM EST Narrative Resulting Agency Comment Spec In Lab Gabe Fong MD HEMATOLOGY ORDERABLE S Performing Organization Address City/State/[facility] Co de Phone Number [facility] [place] [address] documented in this encounter Visit Diagnoses Diagnosis Ulcerative colitis without complications, unspecified location High risk medication use Encounter for long-term (current) use of other medications Inflammatory arthropathy Arthropathy, unspecified, site unspecified Morning joint stiffness Stiffness of joint, not elsewhere classified, unspecified site documented in this encounter Care Teams Line Service Attendant Relationship Specialty Start Date End Date Marcio Devlin DO [address] [facility] [place] [address] PCP - General Family Medicine 11/11/17 documented as of this encounter
--- OUTSIDE RECORDS SUMMARY | 2024-04-08 02:29 | XMS_ITS | Encounter Summary ---
Author Organization [facility] [place] [address] Care Team Providers Care Movie Projectionist Name Role Phone Marcio Devlin DO Primary Care Provider Encounter Details Date Type Department Care Team (Late st Contact Info) Description 09/04/2021 Telephone [place] [phone] Yanely Mendenhall Social History Tobacco Use Types Packs/Day Years [...] encounter Miscellaneous Notes * Telephone Encounter - Yanely Mendenhall - 09/04/2021 12:10 PM EST VM left with pt to cb and book FU with Dr. Fong documented in this encounter Plan of Treatment Upcoming Encounters Date Type Department Care Team (Late st Contact Info) Description 04/19/2024 10:00 AM EDT Hospital Encounter Non-Invasive Cardiology Lab [place] [address] Arrived 04/29/2024 9:50 AM EDT Appointment MRI at [address] Luis Alfredo Velazquez MD [facility] [place] [address] 04/29/2024 9:50 AM EDT Appointment MRI at [place] [address] Luis Alfredo Velazquez MD [facility] [place] [address] 06/07/2024 2:30 PM EDT TH Visit (TeleHealth) Gastroenterology at [place] [address] Dajuan Rachel MD [facility] [place] [address] 07/02/2024 2:00 PM EDT Appointment Non-Invasive Cardiology Lab [place] [phone] Luis Alfredo Velazquez MD [facility] [place] [address] 07/02/2024 4:40 PM EDT Office Visit Cardiology at [place] [phone] Luis Alfredo Velazquez MD [facility] [place] [address] documented as of this encounter Visit Diagnoses Not on filedocumented in this encounter Care Teams Movie Projectionist Relationship Specialty Start Date End Date Marcio Devlin DO [address] [place] [address] PCP - General Family Medicine 11/11/17 documented as of this encounter
--- OUTSIDE RECORDS SUMMARY | 2024-04-08 02:29 | XMS_ITS | Encounter Summary ---
[place] [address] Care Team Providers Care Application Internship Name Role Phone Marcio Devlin DO Primary Care Provider [phone] Reason for Visit * Reason Onset Date Comments Reminder Appointment 05/15/2021 Encounter Details Date Type Department Care Team (Late st Contact Info) Description 05/15/2021 Telephone [place] [phone] Elisha Hall CMA GASTROENTEROLOGY DEPT Reminder Appointment Social History Tobacco Use Types Packs/Day Years [...] encounter Miscellaneous Notes * Telephone Encounter - Elisha Hall CMA - 05/15/2021 9:55 AM EDT Called patient to review medications and allergies for their upcoming gastroenterology Type of Appointment: Telehealth appointment. Reach Patient during MA Check: Yes Notes for the provider: Notes for the nurse: documented in this encounter Plan of Treatment Upcoming Encounters Date Type Department Care Team (Late st Contact Info) Description 04/19/2024 10:00 AM EDT Hospital Encounter Non-[place]vasive [place] [address] Arrived 04/29/2024 9:50 AM EDT Appointment MRI at [place] [address] Luis Alfredo Velazquez MD [facility] [place] [address] 04/29/2024 9:50 AM EDT Appointment MRI at [place] [address] Luis Alfredo Velazquez MD [facility] [place] [address] 06/07/2024 2:30 PM EDT TH Visit (TeleHealth) Gastroenterology at [place] [address] Dajuan Rachel MD [facility] [place]STRO[place]OLOG[place] [address] 07/02/2024 2:00 PM EDT Appointment Non-Invasive Cardiology Lab [address] Luis Alfredo Velazquez MD [facility] [place] [address] 07/02/2024 4:40 PM EDT Office Visit Cardiology at [place] [phone] Luis Alfredo Velazquez MD [facility] [place] [address] documented as of this encounter Visit Diagnoses Not on filedocumented in this encounter Care Teams Application Internship Relationship Specialty Start Date End Date Marcio Devlin DO [address] [place] [address] PCP - General Family Medicine 11/11/17 documented as of this encounter
--- OUTSIDE RECORDS SUMMARY | 2024-04-08 02:29 | XMS_ITS | Encounter Summary ---
Author Organization [facility] Address [facility] [place] [address] Care Team Providers Care Paper And Prints Restorer Name Role Phone Marcio Devlin DO Primary Care Provider [phone] Encounter Details Date Type Department Care Team (Late st Contact Info) Description 07/19/2021 Orders [place] [phone] Gabe Fong MD [facility] [place] [address] Ulcerative colitis without complications, unspecified location; High [...] AM EDT Hospital Encounter Non-[place] [phone] Arrived 04/29/2024 9:50 AM EDT Appointment MRI at [place] [phone] Luis Alfredo Velazquez MD [facility] [place] [address] 04/29/2024 9:50 AM EDT Appointment MRI at [place] [phone] Luis Alfredo Velazquez MD [facility] [place] [address] 06/07/2024 2:30 PM EDT TH Visit (TeleHealth) Gastroenterology at [place] [phone] Dajuan Rachel MD [facility] GASTRO[place] [address] 07/02/2024 2:00 PM EDT Appointment Non-Invasive Cardiology Lab [place] [phone] Luis Alfredo Velazquez MD [facility] [place] [address] 07/02/2024 4:40 PM EDT Office Visit Cardiology at [address] [phone] Luis Alfredo Velazquez MD [facility] [place] [address] documented as of this encounter Results * TPMT Activity Profile, RBC (12/13/2021 10:05 AM EDT) [facility] TPMT Activity Profile, RBC Test ? Result ?Flag ??Unit ? RefValue TPMT Activity Profile, RBC ??Interpretation ? SEE COMMENTS ?*Normal* In this whole blood sample, the profile of ?activity of thiopurine methyltransferase using three ?different substrates was normal or essentially normal. ? -ADDITIONAL INFORMATION--------- ?Liquid Chromatography-[facility] [employer] Mass Spectrometry (LC-MS/MS) ?This test was developed and its performance characteristics ?determined by [facility] in a manner consistent with CLIA ?requirements. This test has not been cleared or approved by ?the U.S. Food and Drug Administration. ??6-Methylmercaptopu rine ? 3.63 ?nmol/mL/h ??3.00-6.66 ??6-Methylmercaptopu rine riboside ?7.44 ?nmol/mL/h ??5.04-9.57 ??6-Methylthioguanin e riboside ? 4.87 ?nmol/mL/h ??2.70-5.84 ??Reviewed By ?Nathaniel Serrato, Ph.D ?Test Performed by: ?[facility] ?[address] [place] [address] ?Surveillance Investigator: Oc Lorenzo M.D. Ph.D.; CLIA# [id number] [facility] Blood 12/13/2021 10:0 5 AM EDT 12/13/2021 3:01 PM EDT Narrative Resulting Agency Comment Spec In Lab Gabe Fong MD CHEMISTRY ORDERABLES Performing Organization Address [facility] [place] [address] * [id number] Qualitative (08/06/2021 10:15 AM EST) G6PD Qual Negative screening for G6PD deficiency. [facility] Blood 08/06/2021 10:1 5 AM EST 08/06/2021 10:41 AM EST Narrative Resulting Agency Comment Spec In Lab Gabe Fong MD HEMATOLOGY ORDERABLE S Performing Organization Address City/[facility] [place] [place] [address] documented in this encounter Visit Diagnoses Diagnosis Ulcerative colitis without complications, unspecified location High risk medication use Encounter for long-term (current) use of other medications Inflammatory arthropathy Arthropathy, unspecified, site unspecified Morning joint stiffness Stiffness of joint, not elsewhere classified, unspecified site documented in this encounter Care Teams Paper And Prints Restorer Relationship Specialty Start Date End Date Marcio Devlin DO [address] [place] [address] PCP - General Family Medicine 11/11/17 documented as of this encounter
--- OUTSIDE RECORDS SUMMARY | 2024-04-08 02:29 | XMS_ITS | Encounter Summary ---
[place] [address] Care Team Providers Care Fuel Manager Name Role Phone Marcio Devlin DO Primary Care Provider [phone] Encounter Details Date Type Department Care Team (Late st Contact Info) Description 05/15/2021 Orders Only [place] [phone] Rachelle Acevedo RN Ulcerative pancolitis without complication; Encounter for therapeutic drug level monitoring Social History Tobacco Use Types Packs/Day Years [...] AM EDT Hospital Encounter Non-[place] [phone] Arrived 04/29/2024 9:50 AM EDT [place] [address] Luis Alfredo Velazquez MD [facility] [place] [address] 04/29/2024 9:50 AM EDT Appointment MRI at [place] [address] Luis Alfredo Velazquez MD [facility] [place] [address] 06/07/2024 2:30 PM EDT TH Visit (TeleHealth) Gastroenterology at [place] [address] Dajuan Rachel MD [facility] [place] [address] 07/02/2024 2:00 PM EDT Appointment Non-Invasive Cardiology Lab [place] [address] Luis Alfredo Velazquez MD [facility] [place] [address] 07/02/2024 4:40 PM EDT Office Visit Cardiology at [place] [address] Luis Alfredo Velazquez MD [facility] [place] [address] documented as of this encounter Visit Diagnoses Diagnosis Ulcerative pancolitis without complication Encounter for therapeutic drug level monitoring Encounter for therapeutic drug monitoring documented in this encounter Care Teams Fuel Manager Relationship Specialty Start Date End Date Marcio Devlin DO [address] [place] [address] PCP - General Family Medicine 11/11/17 documented as of this encounter
--- OUTSIDE RECORDS SUMMARY | 2024-04-08 02:29 | XMS_ITS | Encounter Summary ---
Author Organization [facility] Address [facility] [place] [address] Care Team Providers Care Flatlock Sewing Machine Operator Name Role Phone Marcio Devlin DO Primary Care Provider [phone] Encounter Details Date Type Department Care Team (Latest Contact Info) Description 12/13/2021 9:30 AM EDT - 12/13/2021 11:59 PM EDT Hospital Encounter XRay at [address] [place] [phone] Gabe Fong MD [facility] [place] [address] Ankylosing spondylitis of cervical region; Neck pain; Ulcerative colitis without complications, unspecified location Discharge Disposition: Home Social History Tobacco Use [...] by mouth daily. SUMAtriptan (IMITREX) 20 mg/actuation Edison, Non-Aerosol 1 spray as needed. 11/03/2017 metFORMIN [...] AM EDT Hospital Encounter Non-Invasive [place] [phone] Arrived 04/29/2024 9:50 [place] [phone] Luis Alfredo Velazquez MD [facility] [place] [address] 04/29/2024 9:50 AM [place] [phone] Luis Alfredo Velazquez MD [facility] [place] [address] 06/07/2024 2:30 PM EDT TH Visit (TeleHealth) [place] [phone] Dajuan Rachel MD [facility] [place] [address] 07/02/2024 2:00 PM EDT Appointment Non-Invasive [place] [phone] Luis Alfredo Velazquez MD [facility] [place] [address] 07/02/2024 4:40 PM EDT Office Visit Cardiology at [address] [phone] Luis Alfredo Velazquez MD [facility] [place] [address] documented as of this encounter Procedures Procedure Name Priority Date/Time Associated Diagnosis Comments XR CERVICAL SPINE 2 OR 3 VIEWS Routine 12/13/2021 9:40 AM EDT Ankylosing spondylitis of cervical region Neck pain Ulcerative colitis without complications, unspecified location documented in this encounter Results * XR Cervical Spine 2 or 3 Views (12/13/2021 9:40 AM EDT) Anatomical Region Laterality Modality C-spine N/A Digital Radiogra phy Impressions 12/13/2021 9:46 AM EDT Similar ankylosis of C2-C4. Similar facet osteoarthropathy from C4 to T1. Thank you for letting us participate in the care of this patient. ??If you are a health care provider and have any questions regarding this report, please contact the number below. ??For patients who have questions please contact the health child care provider that requested your imaging first. ? Narrative 12/13/2021 9:46 AM EDT EXAMINATION: XR CERVICAL SPINE 2 OR 3 VIEWS CLINICAL HISTORY: inflammatory arthopathy with pain in the neck TECHNIQUE: 2 views of the cervical spine COMPARISON: August 2015 FINDINGS: No prevertebral soft tissue swelling. The [...] C6-C7, C7-T1 facet joints bilaterally. No spondylolisthesis. Procedure Note Ricardo Campbell MD - 12/13/2021 EXAMINATION: XR CERVICAL SPINE 2 OR 3 VIEWS CLINICAL HISTORY: inflammatory arthopathy with pain in the neck TECHNIQUE: 2 views of the cervical spine COMPARISON: August 2015 FINDINGS: No prevertebral soft tissue swelling. The bones are demineralized.Intact vertebral body heights and disc space heights. The C2-C3 and C3-C4 intervertebral body disc spaces and the facet joints are fusedbilaterally, similar to prior. The other vertebral bodies and facet joints are notfused. There is similar osteophytes and joint space narrowing at the C4-C5,C5-C6, C6-C7, C7-T1 facet joints bilaterally. No spondylolisthesis. IMPRESSION Similar ankylosis of C2-C4. Similar facet osteoarthropathy from C4 to T1. Thank you for letting us participate in the care of this patient. If youare a health care provider and have any questions regarding this report,please contact the number below. For patients who have questions please contactthe health child care provider that requested your imaging first. Gabe Fong MD IMG DX ORDERABLES documented in this encounter Visit Diagnoses Diagnosis Ankylosing spondylitis of cervical region Ankylosing spondylitis Neck pain Cervicalgia Ulcerative colitis without complications, unspecified location documented in this encounter Care Teams Flatlock Sewing Machine Operator Relationship Specialty Start Date End Date Marcio Devlin DO [address] [place] [address] PCP - General Family Medicine 11/11/17 documented as of this encounter
--- OUTSIDE RECORDS SUMMARY | 2024-04-08 02:29 | XMS_ITS | Encounter Summary ---
Author Organization [facility] [place] [address] Care Team Providers Care Safety Instruction Police Officer Name Role Phone Marcio Devlin DO Primary Care Provider [phone] Encounter Details Date Type Department Care Team (Latest Contact Info) Description 05/15/2021 12:00 PM EDT TH Visit (TeleHealth) [place] [address] Rosemarie Morrow, SKIP [facility] [place] [address] Ulcerative pancolitis without complication Social History Tobacco [...] Progress Notes * Rosemarie Morrow, SKIP - 05/15/2021 12:00 PM EDT [facility] Gastroenterology Telehealth Visit Primary care provider: [...] ?? Colonoscopy 09/19/08 (Dr. Shady Luz at [facility]) for surveillance for dysplasia. [...] 2020 - severe involvement of L colon, whix-qu-tskdsvow involvement of transverse and R colon. Worse compared to last exam. SSA at hepatic flexure ?? Adalimumab level (garcía) was 12.7 ?? Switched to Stelara ( 03/21/21, first infusion dose) d/t Lost of response to Humira. Stopped Uceris and sulfasalazine in January 2021. ? CURRENT MEDS: Stelara ( 03/21/21, first infusion dose) ?? Interval history: - Last visit with Dr. Rachel 01/2021. - Switched to Stelara ( 03/21/21, first infusion dose) as she has lost response to Humira. Next Stelara SC due tormoorw. - Prednisone tapered off 03/01/21 - Feeling better - BM 3-4x/day ( from ac31-17t/day), formed stool, no nocturnal bm - No bleeding except after she had eaten tomatoes the other day, noted some blood. Today no blood noted. - No abdomial pain. - Eating better. Still avoid fresh vegetables - No n/v - No f/c Review of systems as in the HPI, the rest of the review of systems were negative. Past Medical History, Social History and Family History is unchanged. Allergies/Adverse reactions Ibuprofen, Celebrex [celecoxib], Lodine [etodolac], Amoxicillin-pot clavulanate, Cephalexin, and Doxycycline No Physical Examination Performed Recent labs No visits with results within 3 Month(s) from this visit. Latest known visit with results is: Admission on 12/19/2020, Discharged on 12/19/2020 Component Date Value Ref Range Status ??? COLONOSCOPY 12/19/2020 Final Value:[facility] Endoscopy Procedure Date: 12/19/2020 12:03 PM Patient Name: Kim Funes Date of : 1960 Age: 60 Order #: [id number] Instrument Name: [id number] Procedure: Colonoscopy Patient Profile: This is a 60 year old female. This patient has ulcerative pancolitis, is taking adalimumab and sulfasalazine and is experiencing mild symptoms. Providers: Freddy Rachel MD, Sandoval Helton RN, Codi Roberto MD: Medicines: Midazolam mg IV, Fentanyl micrograms IV Complications: No immediate complications. Procedure: Pre-Anesthesia Assessment: - Prior to the procedure, a History and Physical was performed, and patient medications and allergies were reviewed. The patient is competent. The risks and benefits of the procedure and the sedation options and risks were discussed with the patient. All questions were answered and informed consent was obtained. Patient identification and proposed procedure were [...] receive sedatives. The heart rate, respiratory rate, ox ygen saturations, blood pressure, adequacy of pulmonary ventilation, and response to care were monitored throughout the procedure. The physical status of the patient was re-assessed after the procedure. The procedure, indications, benefits, risks and alternatives were explained to the patient. Specifically discussed were potential complications including, but not limited to, bleeding, perforation, infection, missing a cancer, and adverse medication reactions. The patient was placed in the left lateral decubitus position, and a digital rectal exam was performed. The Colonoscope was inserted in the anus and under direct visualization, advanced to 10 cm into the ileum. Careful inspection was made as the colonoscope was withdrawn. The colonoscopy was performed without difficulty. The patient tolerated the procedure well. The quality of the bowel preparation was evaluated using the BBPS ([place] Bowel Preparation Scale) with scores of: Right Colon = 2 (minor amount of residual staining, small fragments of stool and/or opaque liquid, but mucosa seen well), Transverse Colon = 2 (minor amount of residual staining, small fragments of stool and/or opaque liquid, but mucosa seen well) and Left Colon = 2 (minor amount of residual staining, small fragments of stool and/or opaque liquid, but mucosa seen well). The total BBPS score equals 6. The quality of the bowel preparation was good. Scope withdrawal time was 30 minutes. Findings: The terminal ileum appeared normal. There was circumferential, confluent active inflammation throughout the entire colon in differing degrees of severity. From the anorectal junction to about 20 cm within the sigmoid colon, there were large patches of ulceration, some of which were circumferential, along with erythema, polypoid areas, granularity to the point of appearing serrated in some more focal patches, touch friability, and lack of discernable vascula rity. From about 20-30 cm, the ulcerations were more linear with less severe granularity. The entire left colon to about 55 cm, the colon was tubular and erythematous with diminished vascularity. The transverse colon was least involved with mildly blunted vascular pattern and mild erythema. The right colon was diffusely and circumferentially erythematous with mild granularity and poorly defined vascularity. Eight biopsies were obtained with cold forceps for surveillance from each of four segments of the colon (right colon, transverse, descending and rectosigmoid colon). A 7 mm polyp was found in the hepatic flexure. The polyp was flat with fairly well-defined margins though the surrounding adjacent mucosa was moderately granular. The polyp was removed with a cold snare. Resection and retrieval were complete. Biopsies were taken with a cold forceps for histology from the margins of the polypectomy site. Targeted biopsies were taken from a fold in the proximal transverse colon where there was an ~2 cm patch of granular mucosa with a villiform-type pit pattern and poorly defined margins. External hemorrhoids were found. The hemorrhoids were medium-sized. Moderate Sedation: I was present during the intraservice time as documented by the sedation RN. Impression: - Extensive ulcerative colitis with severe involvement of the left colon and ooyf-bz-esitdckz involvement of the transverse and right colon. This is worse compared to last exam. Eight biopsies were obtained each from the right colon, transverse, descending and rectosigmoid colon. - One 7 mm polyp at the hepatic flexure, removed with a cold snare. Resected and retrieved. Margins biopsied. - Targeted biopsies taken from the proximal transverse colon. - External hemorrhoids. - The examined portion of the ileum was normal. Recommendation: - Await pathology results. - Follow-up in IBD Clinic to discuss changing medications. Consider ustekinumab instead of Humira. Attending Participation: I personally performed the entire procedure. L. Jose Rachel MD 12/19/2020 1:59:08 PM Number of Addenda: 0 Note Initiated On: 12/19/2020 12:03 PM ??? Surgical Pathology Report 12/19/2020 Final Value:[id number] Location: 4T; EA07; A The signing pathologist has (i) examined the relevant preparation(s) for the specimen(s) and (ii) rendered or confirmed the diagnosis(es). . Surgical Pathology DIAGNOSIS A - Nontargeted right colon, biopsy: - Focal active colitis. B - Nontargeted transverse colon, biopsy: - Colonic mucosa, negative for diagnostic abnormality. C - Hepatic flexure, polypectomy: - Sessile serrated polyp/adenoma.. D - Margins, polypectomy hepatic flexure, biopsy: - Patchy mildly active chronic colitis, negative for dysplasia. E - Targeted proximal transverse colon, biopsy: - Mildly active chronic colitis, negative for dysplasia, present in one of the mucosal fragments (see Note). Note: Multiple deeper levels examined. Immunostaining for p53 was evaluated for final diagnosis. F - Nontargeted descending colon, biopsy: - Colonic mucosa with mild arch itectural disarray, negative for dysplasia. G - Nontargeted sigmoid and rectum, biopsy: - Severely active chronic colitis, negative for dysplasia. CR-PX Electronically signed by: Iker Jansen MD Verified: 12/26/2020 15:38 Pathologist Performed at: -[facility] Dept. of Pathology, [place], [place] ADDITIONAL STUDIES Immunohistochemistry Studies: Formalin-fixed, paraffin-embedded tissue sections are studied using the polymer technique with appropriate positive and negative controls. These IHC studies provide the pathologist with adjunctive diagnostic information. Antibody specificity has been verified by testing antibodies on a series of in-house tissues with known immunohistochemical performance characteristics. The clinical interpretation of any antibody positive staining or its absence is evaluated within the context of clinical presentation, morphology, histopathological criteria and other diagnostic tests. Block Anti body Result (Positive/Negative) E1 P53 see note SPECIMEN(S) SUBMITTED A - nontargeted right colon, biopsy (Multiple) B - nontargeted transverse colon, biopsy (Multiple) C - hepatic flexure polyp 7mm, excision (1) D - margins polypectomy hepatic flexure, biopsy (Multiple) E - targeted bx proximal transverse colon, biopsy (Multiple) F - nontargeted descending colon, biopsy (Multiple) G - nontargeted sigmoid and rectum, biopsy (Multiple) CLINICAL INFORMATION 60-year-old female with UC, history of polyps . SPECIMEN PROCESSING A - Labeled/Fixative: Non-targeted right colon, formalin. Quantity/Size: Multiple, 0.2-0.4 cm. Tissue Description: Soft, brown-pink tissues. Sections/Processing: Submitted en toto in 3 cassettes labeled A1-A3. B - Labeled/Fixative: Nontargeted transverse colon, formalin. Quantity/Size: Multiple, 0.2-0.4 cm. Tissue Description: Soft, brown-pink tissues. Sections/Processing: Submitted en toto in 3 cassettes labeled B1-B3. C - Labeled/Fixative: Hepatic flexure polyp 7 mm, formalin. Quantity/Size: Single, 1.5 x 0.5 x 0.1 cm. Tissue Description: Soft, brown-pink tissue. Sections/Processing: Inked, bisected and entirely submitted in 1 cassette labeled C1. D - Labeled/Fixative: Margins polypectomy hepatic flexure, formalin. Quantity/Size: Three, 0.2-0.3 cm. Tissue Description: Soft, brown-pink tissues. Sections/Processing: Submitted en toto in 1 cassette labeled D1. E - Labeled/Fixative: Targeted BX proximal transverse colon, formalin. Quantity/Size: Five, 0.1-0.3 cm. Tissue Description: Soft, brown-pink tissues. Sections/Processing: Submitted en toto in 1 cassette labeled E1. F - Labeled/Fixative: Nontargeted descending colon, formalin. Quantity/Size: Multiple, 0.1-0.4 cm. Tissue Description: Soft, brown-pink tissues. Sections/Processing: Submitted en toto in 3 cassettes labeled F1-F3. G - Labeled/Fixative: Nontargeted sigmoid and rectum, formalin. Quant ity/Size: Multiple, 0.2-0.4 cm. Tissue Description: Soft, brown-pink tissues. Sections/Processing: Submitted en toto in 2 cassettes labeled G1-G2. elisa Recent endoscopic procedures As in detailed in history above Recent relevant imaging As in detailed in history above ( Taken from Dr. Rachel's note) : Labs were reviewed from March. Adalimumab level (emblem) was 12.7. CBC, ESR, CMP were unremarkable. CRP was 1.8 mg/dL. ?? OSH labs done on 04/18/21: CBC, LFTs normal CRP 0.77 ( unl 0.3) Assessment/Plan: Ms. Funes is a 61 y.o. patient with ulcerative colitis, switched to Stelara ( 03/21/21, first infusion dose) as she has lost response to Humira. Next Stelara SC due tomorrow. Prednisone tapered off 03/01/21. Feeling better. Recent labs look good, CRP trending down. See above. Plans: - Continue Stelara q 8 weeks - Continue Labs surveillance - Check Stelara trough level after tomorrow's dose ( [facility]). - Plan for Colonoscopy 6-12 months after starting therapy and once we optimized her therapy to evaluate for therapeutic response. Will schedule at next visit - F/U with Dr. Rachel in 4 months 10 minutes of this 10 minute telehealth appointment were spent in direct counseling regarding treatment of patient's gastroenterology concern. Please contact me if there are any further questions regarding the care of this patient. Renee Morrow APRN Gastroenterology Section [facility] documented in this encounter Plan of Treatment Upcoming Encounters Date Type Department Care Team (Late st Contact Info) Description 04/19/2024 10:00 AM EDT Hospital Encounter Non-Invasive Cardiology Lab [place] [phone] Arrived 04/29/2024 9:50 AM EDT Appointment MRI at [place] [address] Luis Alfredo Velazquez MD [facility] [place] [address] 04/29/2024 9:50 AM EDT Appointment MRI at [place] [address] Luis Alfredo Velazquez MD [facility] [place] [address] 06/07/2024 2:30 PM EDT TH Visit (TeleHealth) Gastroenterology at [place] [address] Dajuan Rachel MD [facility] [place] [address] 07/02/2024 2:00 PM EDT Appointment Non-[place] [address] Luis Alfredo Velazquez MD [facility] [place] [address] 07/02/2024 4:40 PM EDT Office Visit Cardiology at [place] [phone] Luis Alfredo Velazquez MD [facility] [address] documented as of this encounter Visit Diagnoses Diagnosis Ulcerative pancolitis without complication documented in this encounter Care Teams Safety Instruction Police Officer Relationship Specialty Start Date End Date Marcio Devlin DO [address] [place] [id number] PCP - General Family Medicine 11/11/17 documented as of this encounter
--- OUTSIDE RECORDS SUMMARY | 2024-04-08 02:29 | XMS_ITS | Encounter Summary ---
Author Organization [facility] [place] [address] Care Team Providers Care License Registration Examiner Name Role Phone Marcio Devlin DO Primary Care Provider [phone] Reason for Visit * Reason Comments Specialty Pharmacy Review Encounter Details Date Type Department Care Team (Late st Contact Info) Description 05/15/2021 Specialty [place] [phone] Berenice Novak, [facility] Social History Tobacco Use Types [...] as of this encounter Progress Notes * Berenice Novak - 05/15/2021 11:59 PM EDT The [facility] has completed a benefits investigation for Kim Funes to review their eligibility to fill at [facility]. Per patient's medication list they are prescribed Stelara and the medication is not able to be filled at the [facility]. documented in this encounter Plan of Treatment Upcoming Encounters Date Type Department Care Team (Late st Contact Info) Description 04/19/2024 10:00 AM EDT Hospital Encounter Non-[place] [address] Arrived 04/29/2024 9:50 AM [place] [address] Luis Alfredo Velazquez MD [facility] [place] [address] 04/29/2024 9:50 AM [place] [address] Luis Alfredo Velazquez MD [facility] [place] [address] 06/07/2024 2:30 PM EDT TH Visit (TeleHealth) [place] [phone] Dajuan Rachel MD [facility] [place] [address] 07/02/2024 2:00 PM EDT Appointment Non-[place]vasive [place] [phone] Luis Alfredo Velazquez MD [facility] [place] [address] 07/02/2024 4:40 PM EDT Office Visit Cardiology at [address] [phone] Luis Alfredo Velazquez MD [facility] [place] [address] documented as of this encounter Visit Diagnoses Not on filedocumented in this encounter Care Teams License Registration Examiner Relationship Specialty Start Date End Date Marcio Devlin DO [address] [place] [address] PCP - General Family Medicine 11/11/17 documented as of this encounter
--- OUTSIDE RECORDS SUMMARY | 2024-04-08 02:29 | XMS_ITS | Encounter Summary ---
Author Organization [facility] [address] Care Team Providers Care Transportation Economics Teacher Name Role Phone Marcio Devlin DO Primary Care Provider [phone] Reason for Visit * Reason Comments Medication Management Encounter Details Date Type Department Care Team (Late st Contact Info) Description 03/23/2021 Specialty [place] [address] Sierra Peters RPH Social History Tobacco Use Types Packs/Day Years [...] as of this encounter Progress Notes * Sierra Peters RPH - 03/23/2021 9:31 AM EDT Clinical Management Plan: D-H Specialty Consult, D-H Specialty Services Offered Specialty Pharmacy Consultation; Sierra Peters RPH Comprehensive Medication Management (CMM) Kim Graff Shantel is a 60 y.o. (1960) female who was contacted via telephone for a brief review of specialty therapy, Sara. Patient received initial infusion on 03/21/2021. Reviewed dosing schedule of 90mg/mL subcutaneously every 8 weeks. Based on infusion date patient would be due for firstinjection on 05/16/2021. ?? Prescription approved through insurance and patient is mandated to [facility] ?? Reviewed [employer] co-pay program and recommended patient sign up for co-pay card if applicable ?? Telehealth injection teaching scheduled for 05/16/21 at 2:30 PM ?? Reviewed lab schedule with patient of every 2 weeks for 1 month starting after infusion, every month for 3 months and once every 4 months thereafter. The patient would like to utilize [facility] - orders are already in The patient was also made aware that they are eligible to participate in the [facility] Specialty ClinicalManagement Program. Services in this program include prior authorization and copay assistance, monthly refill reminders, routine pharmacist consults, and 07/04 pharmacist support during therapy. The patient was given [facility] contact information and was encouraged to reach out to the [facility] with any specialty medication-related questions or concerns. Specialty pharmacy will reach out to patient two weeks prior to due date to dispense medication. Sierra Peters RPH 03/23/2021 9:31 AM documented in this encounter Plan of Treatment Upcoming Encounters Date Type Department Care Team (Late st Contact Info) Description 04/19/2024 10:00 AM EDT Hospital Encounter Non-[place]vasive [place] [address] Arrived 04/29/2024 9:50 AM EDT [place] [phone] Luis Alfredo Velazquez MD [facility] [place] [address] 04/29/2024 9:50 AM EDT [place] [phone] Luis Alfredo Velazquez MD [facility] [place] [address] 06/07/2024 2:30 PM EDT TH Visit (TeleHealth) [place] [phone] Dajuan Rachel MD [facility] DR GASTROENTEROLOGY DEPT. [place], [place] [phone] 07/02/2024 2:00 PM EDT Appointment Non-[place]vasive [place] [address] Luis Alfredo Velazquez MD [facility] [place] [address] 07/02/2024 4:40 PM EDT Office Visit Cardiology at [address] [phone] Luis Alfredo Velazquez MD [facility] [place] [address] documented as of this encounter Visit Diagnoses Not on filedocumented in this encounter Care Teams Transportation Economics Teacher Relationship Specialty Start Date End Date Marcio Devlin DO [address] [place] [address] PCP - General Family Medicine 11/11/17 documented as of this encounter
--- OUTSIDE RECORDS SUMMARY | 2024-04-08 02:29 | XMS_ITS | Encounter Summary ---
[place] [address] Care Team Providers Care Electrician Outside Name Role Phone Marcio Devlin DO Primary Care Provider [phone] Reason for Visit * Reason Comments Prior Authorization Stelara 90mg/mL SOSY Encounter Details Date Type Department Care Team (Late st Contact Info) Description 02/13/2021 Specialty [place] [phone] Jacky Montalvo, [facility] Social History Tobacco Use Types Packs/Day [...] as of this encounter Progress Notes * Jacky Montalvo - 02/13/2021 4:04 PM EDT [facility], Medication Prior Authorization Patient: Kim Funes Patient : 1960 Patient Address: [address] [place] [phone] (home) Medication Name: STELARA 90 MG/ML SUBCUTANEOUS SYRINGE Medication ID: [id number] Patient Location: [facility] Patient Location Comment: Subscriber Insurance: [employer] ([facility]) Subscriber Insurance Comment: Fax: Physician: Dajuan BERRY Physician Comment: Sent Via: [facility] [place]: [phone] Ref/Case/PA#: Medication Strength Frequency Requested: Stelara 90mg/mL SOSY, Inject the contents of one syringe (90mg) SQ every 8 weeks. Qty/Day Supply: New Start: New to Therapy Diagnosis & ICD-10 Code: Ulcerative Pancolitis K51.00 Patient Notified: No Submission Notes: None Jacky Montalvo 02/13/21 4:07 PM * Jacky Montalvo - 02/13/2021 4:04 PM EDT [facility], Prior Authorization Denial Medication Name: STELARA 90 MG/ML SUBCUTANEOUS SYRINGE Medication ID: [id number] Case/Reference # : [id number] Denial Summary: PA denied because there was not documentation of the patient's induction dosing. GMto do an appeal. Patient Notified of Denial: No Additional Information from insurance carrier. Please see below: None For any questions relating to this denial please reach out directly to your section's specialty pharmacist, or the specialty pharmacy team at [facility] Jacky Montalvo 02/16/21 10:02 AM * Sierra Peters, [facility] - 02/13/2021 4:04 PM EDT [facility], Prior Authorization Appeal Medication Name: STELARA 90 MG/ML SUBCUTANEOUS SYRINGE Denied by Insurance on: 02/15/2021 Appeal Submission Date: 03/01/2021 Sent Via: Fax Appeals Department Contact Information: Rx Benefits Clinical Review Department Fax: , Phone: Additional information regarding this appeal: Submitted with print out of patient's infusion appointment schedule For any questions relating to this appeal please reach out directly to your section's specialty pharmacist. Sierra Peters RPH 03/01/21 10:40 AM * Sierra Peters RPH - 02/13/2021 4:04 PM EDT [facility], Prior Authorization Appeal Approval Medication Name: STELARA 90 MG/ML SUBCUTANEOUS SYRINGE Appeal Result: Approved Appeal Decision Date: 03/06/2021 3:11 PM Approved from: 03/06/2021 to 06/05/2021 Reference Number: [id number] Can be filled with: [facility] Patient Notified of Approval: To be contacted by [facility] for consult Additional Information regarding this Appeal: None For any questions relating to this appeal please reach out directly to your section's specialty pharmacist. Sierra Peters RPH 03/08/21 3:12 PM documented in this encounter Plan of Treatment Upcoming Encounters Date Type Department Care Team (Late st Contact Info) Description 04/19/2024 10:00 AM EDT Hospital Encounter Non-[place]vasive [place] [phone] Arrived 04/29/2024 9:50 AM [place] [address] Luis Alfredo Velazquez MD [facility] [place] [address] 04/29/2024 9:50 AM EDT Appointment MRI at [place] [phone] Luis Alfredo Velazquez MD [facility] [place] [address] 06/07/2024 2:30 PM EDT TH Visit (TeleHealth) Gastroenterology at [place] [phone] aDjuan Berry MD [facility] DR [place] [address] 07/02/2024 2:00 PM EDT Appointment Non-Invasive Cardiology Lab [place] [phone] Luis Alfredo Velazquez MD [facility] [place] [address] 07/02/2024 4:40 PM EDT Office Visit Cardiology at [address] [phone] Luis Alfredo Velazquez MD [facility] [place] [address] documented as of this encounter Visit Diagnoses Not on filedocumented in this encounter Care Teams Electrician Outside Relationship Specialty Start Date End Date Marcio Devlin DO [address] [place] [address] PCP - General Family Medicine 11/11/17 documented as of this encounter
--- OUTSIDE RECORDS SUMMARY | 2024-04-08 02:29 | XMS_ITS | Encounter Summary ---
Author Organization [facility] Address [facility] [place] [address] Care Team Providers Care Gun Number Name Role Phone Marcio Devlin DO Primary Care Provider [phone] Encounter Details Date Type Department Care Team (Late st Contact Info) Description 10/10/2021 Orders [place] [phone] Gabe Fong MD [facility] [place] [address] Ulcerative colitis without complications, unspecified location; High risk medication use; Inflammatory arthropathy Social [...] AM EDT Hospital Encounter Non-[place] [address] Arrived 04/29/2024 9:50 AM EDT Appointment MRI at [place] [address] Luis Alfredo Velazquez MD [facility] [place] [address] 04/29/2024 9:50 AM EDT Appointment MRI at [place] [address] Luis Alfredo Velazquez MD [facility] [place] [address] 06/07/2024 2:30 PM EDT TH Visit (TeleHealth) Gastroenterology at [place] [address] Dajuan Rachel MD [facility] DR [place] [address] 07/02/2024 2:00 PM EDT Appointment Non-Invasive Cardiology Lab [place] [address] Luis Alfredo Velazquez MD [facility] [place] [address] 07/02/2024 4:40 PM EDT Office Visit Cardiology at [place] [phone] Luis Alfredo Velazquez MD [facility] [place] [address] documented as of this encounter Visit Diagnoses Diagnosis Ulcerative colitis without complications, unspecified location High risk medication use Encounter for long-term (current) use of other medications Inflammatory arthropathy Arthropathy, unspecified, site unspecified documented in this encounter Care Teams Gun Number Relationship Specialty Start Date End Date Marcio Devlin DO [address] [place] [address] PCP - General Family Medicine 11/11/17 documented as of this encounter
--- OUTSIDE RECORDS SUMMARY | 2024-04-08 02:29 | XMS_ITS | Encounter Summary ---
Author Organization [facility] [place] [address] Care Team Providers Care Computerized Mill Mill Recorder Name Role Phone Marcio Devlin DO Primary Care Provider Reason for Visit * Reason Comments Medication Management Patient Education Encounter Details Date Type Department Care Team (Latest Contact Info) Description 05/16/2021 4:00 PM EDT Clinical [place] [address] Ulcerative pancolitis without complication Social History Tobacco [...] of this encounter Progress Notes * Sierra Peters, [facility] - 05/16/2021 4:00 PM EDT Patient Injection/Medication Education [] Simponi (golimumab) []Humira (adalimumab) [] [] Cimzia (certolizumab) [x] Stelara (ustekinumab) Yes No Not Required Date & Comments Injection form Pen [] [x] [] Syringe/vial [x] [] [] Patient supplied from [facility] Teaching methods Demonstration - Hands On [x] [] [] Video/Talking devices [] [x] [] Verbal/Written material [x] [] [] Education Proper storage/disposal [x] [] [] Administration of medication [x] [] [] Drug monitoring (lab schedule) [] [] [x] Previously reviewed in TH visit 05/15/21 Common side effects [x] [] [] When to hold medication in the setting of illness/infection/surgery/live vaccines [x] [] [] Outcomes/Goals Patient verbalizes understanding of why they are taking injectable medication [x] [] [] Patient was able to safely and correctly inject medication [x] [] [] Patient's - oVn - safely injected into left upper thigh Patient not able to self-inject and designated person performs injection safely and correctly [] [x] [] Does patient/designated person need remedial training [] [x] [] Remedial training provided [] [] [x] Miscellaneous Discuss PA process [] [] [x] Offer individual medication services/ offer copay cards [] [] [x] Kim Funes is a very pleasant 61 y.o. female who was seen today in clinic to administer herfirst self injection of Stelara therapy. We reviewed the similarities and differences between Humira (immediate previous therapy) and Stelara therapy and devices. Patient's was able to safelyinject into upper thigh today. Patient was given my contact number should any issues arise with themedication or the logistics with her insurance mandated pharmacy [facility]. Sierra Peters RPH 05/16/21 4:45 PM documented in this encounter Plan of Treatment Upcoming Encounters Date Type Department Care Team (Late st Contact Info) Description 04/19/2024 10:00 AM EDT Hospital Encounter Non-Invasive [place] [address] Arrived 04/29/2024 9:50 AM EDT Appointment MRI at [place] [address] Luis Alfredo Velazquez MD [facility] [place] [address] 04/29/2024 9:50 AM EDT Appointment MRI at [place] [address] Luis Alfredo Velazquez MD [facility] [place] [place] [address] 06/07/2024 2:30 PM EDT TH Visit (TeleHealth) Gastroenterology at [address] Dajuan Rachel MD [facility] [place] [address] 07/02/2024 2:00 PM EDT Appointment Non-Invasive Cardiology Lab [place] [address] Luis Alfredo Velazquez MD [facility] [place] [place] [address] 07/02/2024 4:40 PM EDT Office Visit Cardiology at [address] Luis Alfredo Velazquez MD [facility] [place] [address] documented as of this encounter Visit Diagnoses Diagnosis Ulcerative pancolitis without complication documented in this encounter Care Teams Computerized Mill Mill Recorder Relationship Specialty Start Date End Date Marcio Devlin DO [address] [place] [address] PCP - General Family Medicine 2/27/18 documented as of this encounter
--- OUTSIDE RECORDS SUMMARY | 2024-04-08 02:29 | XMS_ITS | Encounter Summary ---
Author Organization [place] [address] Care Team Providers Care Gunite Mixer Name Role Phone Marcio Devlin DO Primary Care Provider [phone] Reason for Referral * Physical Therapy (Routine) - Closed Specialty Diagnoses / Procedures Referred By Contac t Referred To Contact Diagnoses Trochanteric bursitis of left hip Saurabh Mercado MD [facility] [place] [address] Referral ID Status Reason Start Date Expiration Date V isits Requested Visits Authorized [id number] Closed Evaluate and Treat 11/21/2021 05/20/2022 12 12 Reason for Visit * Reason Comments Follow-up L ROSS 2006 (Ginger) P AIN * Consultation (Routine) - Closed Specialty Diagnoses / Procedures Referred By Contac t Referred To Contact Orthopaedics Diagnoses Pain in left hip Mass of joint of left hip Gabe Fong MD [facility] [place] [address] [facility] [address] [place] [phone] Referral ID Status Reason Start Date Expiration Date V isits Requested Visits Authorized [id number] Closed Consult, Test & Treat 11/15/2021 11/15/2022 1 1 Encounter Details Date Type Department Care Team (Late st Contact Info) Description 11/21/2021 4:00 PM EST Office [place] [address] Saurabh Mercado MD [facility] DR [place] [address] Trochanteric bursitis of left hip Social History [...] Sign Reading Time Taken Comments Blood Pressure 145/57 11/21/2021 3:16 PM EST Pulse 67 11/21/2021 3:16 PM EST Temperature - - Respiratory Rate - - Oxygen Saturation - - Inhaled Oxygen Concentration - - Weight 78 kg (172 lb) 11/21/2021 3:16 PM EST Height 167.6 cm (5' 5.98) 11/21/2021 3:16 PM ES T Body Mass Index 27.77 11/21/2021 3:16 PM EST documented in this encounter Patient Instructions * Patient Instructions* Saurabh Mercado MD - 11/21/2021 3:45 PM EST Physical therapy for trochanteric bursitis Topical Voltaren gel applied twice daily Ice applied to hip for 20 minutes at a time. If symptoms persist for another 6-8 weeks, can make appointment for cortisone injection documented in this encounter Progress Notes * Jasmeet Henry MD - 11/21/2021 4:00 PM EST Arthroplasty/Orthopaedic History: 1. Left Total Hip Arthroplasty (Ginger) 2005 HPI: Kim Funes is a very pleasant 61 y.o. year-old female and is now 16 years post left total hip replacement. She recently developed left lateral hip pain at the beginning of September. But this time she was going through an infection of Covid. She noted that she started sleeping on a different bed around that time, but otherwise nothing else to change. The acute onset was atraumatic and has continued to progress to the point where now it is causing significant pain while just standing.The pain is worse with any type of stairs (ascending and descending), sitting from a standing position or standing from a seated position. She is unable to sleep on her left side. 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 She reports that she is only able to stand for about 4 hours, at which time the pain becomes excruciating and has to take a break. She is unable to take oral NSAIDs, but has been taking Tylenol arthritis once daily. She feels like there is some swelling overthe left lateral hip and that it is warmer than the contralateral hip. She denies any recent traumato this area. ROS: Denies: fever, chills, night sweats, nausea, or vomiting Blood Pressure 145/57 (BP Location (NBP): Right arm, Patient Position: Sitting, BP Cuff Sizes: Adult (25-34 cm)) Pulse 67 Height 167.6 cm (5' 5.98) Weight 78 kg (172 lb) Body Mass Index 27.77 kg/m?? Physical Exam: Well-appearing female in no acute distress. Alert and Oriented x 3 and answers all questions appropriately. The incision is well healed, with no signs of infection. On inspection there is no erythema or fluctuant mass. There is severe/exquisite tenderness to palpation over the lateral greater trochanter on the left side. There is very minimal tenderness to palpation on her right lateral hip. Otherwise, there is relatively painless range of motion of her hip.Hip Exam: Left Leg Length: Longer leg: left Limb Length discrepancy: 0cm Motion: Flexion contracture: 0 Total degrees of Flexion: 110 Total degrees of Abduction: 25 Total degrees of Ext Rotation: 25 Total degrees of Internal Rotation: 15 Gait Abnormality: Antalgic Pulses Palpable: Left PT: Yes Left DP: Yes Motor/Sensory: Left Distal Motor: Normal Distal Sensory: Normal Hip Abductors: 5 and and increased pain with resisted side laying abduction Trendelenburg test: negative X-RAYS: Multiple radiographic views were obtained at my request and reviewed with the patient. X-rays show a well-placed left ROSS prosthesis with no evidence of fracture, subsidence, loosening, or periprosthetic complication. Questionnaire Responses: [facility] Surgical Postop Visit 11/21/2021 PROMIS-10 General Health Good PROMIS-10 Quality of Life Good PROMIS-10 Physical Health Good PROMIS-10 Mental Health Very Good PROMIS-10 Social Activity Very Good PROMIS-10 Everyday Activities Mostly PROMIS-10 Pain 6 PROMIS-10 Fatigue Moderate PROMIS-10 Social Roles Good PROMIS-10 Anxious or Depressed Rarely PROMIS PHYSICAL HEALTH SCORE 42.3 PROMIS MENTAL HEALTH SCORE 50.8 HOOS JR Scores 58.93 Problems with surgical incision/wound after surgery No Gone to ER since knee surgery No Admitted to hospital since recent ortho surgery Yes [facility] Date of admission 03/10/2018 Discharge date 03/11/2018 Reason you went to hospital Hysterectomy Additional surgery on same body part No ROSS Grade 6 Pain in other HIP None Back pain at this moment Very mild Satisfaction with Treatment Satisfied Choose Same Treatment Again Probably yes Orthopeadics [facility] Response 11/21/2021 HOOS JR Scores 58.[address] [facility] Response 11/21/2021 HOOS JR Scores 58.93 ASSESSMENT/PLAN: Ms. Funes is a 61 y.o. year old female 16 years status post left total hip arthroplasty with Dr. Miles who now presents with acute onset of 2 months duration left lateral hip pain that is likely greater trochanteric bursitis. Patient's clinical history and physical exam all point to bursitis. Patient is unable to take oral anti-inflammatories, but has been taking Tylenol with only mild relief. At this time I think it is most reasonable to start with physical therapy for the left greater trochanteric bursitis. She can also utilize intermittent icing for 20 minutes every hour as tolerated. We also discussed using a topical cream, such as Voltaren OTC, as well. If patient fails to improve after course of physical therapy, icing, and use of Voltaren gel, we would like to see her back for repeat evaluation and possible discussion regarding corticosteroid injection. Signed: Jasmeet Henry MD 11/21/2021 * Saurabh Mercado MD - 11/21/2021 4:00 PM EST I performed a history and physical examination of the patient and discussed the management plan with Jasmeet Henry MD. I also discussed the different treatment options, as well as the risks and benefits of each with the patient and questions were answered. I reviewed the note and agree with the documented findings and plan of care. ?? Saurabh Mercado MD 11/26/2021 documented in this encounter Plan of Treatment Upcoming Encounters Date Type Department Care Team (Late st Contact Info) Description 04/19/2024 10:00 AM EDT Hospital Encounter [place] [address] Arrived 04/29/2024 9:50 AM EDT Appointment MRI at [address] Luis Alfredo Velazquez MD [facility] [place] [address] 04/29/2024 9:50 AM [place] [address] Luis Alfredo Velazquez MD [facility] [place] [address] 06/07/2024 2:30 PM EDT TH Visit (TeleHealth) [place] [address] Dajuan Rachel MD [facility] GASTRO[place] [address] 07/02/2024 2:00 PM EDT Appointment [place] [address] Luis Alfredo Velazquez MD [facility] [place] [address] 07/02/2024 4:40 PM EDT Office Visit Cardiology at [address] [phone] Luis Alfredo Velazquez MD [facility] [place] [address] Scheduled Referrals Name Type Priority Associated Diagnoses Orde r Schedule Referral to Physical Therapy Outpatient Referral Routine Trochanteric bursitis of left hip Ordered: 11/21/2021 documented as of this encounter Visit Diagnoses Diagnosis Trochanteric bursitis of left hip Enthesopathy of hip region documented in this encounter Care Teams Gunite Mixer Relationship Specialty Start Date End Date Marcio Devlin DO [address] [place] [address] PCP - General Family Medicine 11/11/17 documented as of this encounter
--- OUTSIDE RECORDS SUMMARY | 2024-04-08 02:29 | XMS_ITS | Encounter Summary ---
Author Organization [facility] Address [facility] [place] [address] Care Team Providers Care Homicide Squad Lieutenant Name Role Phone Marcio Devlin DO Primary Care Provider [phone] Reason for Visit * Consultation (Routine) - Closed Specialty Diagnoses / Procedures Referred By Missy escalera Referred To Contact Dermatology Diagnoses Ulcerative pancolitis without complication Rash and other nonspecific skin eruption Rosemarie Morrow, SKIP [facility] [place] [address] [facility] [address] [place] [address] Referral ID Status Reason Start Date Expiration Date V isits Requested Visits Authorized [id number] Closed Consult, Test & Treat 07/09/2021 07/09/2022 1 1 Encounter Details Date Type Department Care Team (Late st Contact Info) Description 07/23/2021 4:15 PM EST Office Visit Dermatology at [facility] [address] [place] [address] Marc Augustine MD [facility] [place] [address] Folliculitis; Papular eczema Social History Tobacco Use Types Packs/Day Years [...] this encounter Patient Instructions * Patient Instructions* Cecy Urias, [facility] - 07/23/2021 4:15 PM EST Sensitive Skin Care You have been diagnosed with a condition that requires a sensitive skin care regimen. It is very important to follow this plan as outlined below. ?? Discontinue ALL current personal care products. This includes soap, body wash, shampoo and conditioner, fragrance, nail tuvaluan, lotions and creams, laundry soap and fabric softener. ?? Soap: Dove Unscented Bar Soap or Vanicream bar soap ?? Facial cleanser: CeraVe Foaming Facial Cleanser or CeraVe Hydrating Cleanser ?? Moisturizer: CeraVe cream, CeraVe lotion, CeraVe lite lotion, Vanicream cream documented in this encounter Progress Notes * Marc Augustine MD - 07/23/2021 4:15 PM EST Images from the original note were not included. DEPARTMENT OF DERMATOLOGY Medical Dermatology Clinic Provider: Marc Augustine MD Patient's preferred name Kim Preferred contact method for results []Phone [x]myD-H []Letter Detailed phone message OK? Yes Are there any other people with whom we may discuss your care? Lucien Past Medical History Date, location, treatment Melanoma N Dysplastic nevi N SCC N BCC N AKs N Psoriasis,- scalp, intertriginous, legs [place] intertrigo ulcerative colitis, currently treating with Anjella Family History Details Melanoma N NMSC N Other relevant family history N Pre-Procedure Screening Details Allergy to lidocaine, epinephrine, Dermabond, chlorhexidine, or adhesives N Bleeding disorder or blood thinners Aspirin 81 mg, Fish Oil Pacemaker, defibrillator, deep brain stimulator, cochlear implant N History of Present Illness: Kim Funes is a 61 y.o. Patient is referred to the clinic at the request of Rosemarie Morrow for a rash on the bilateral arms, came up as little blisters, not itchy or painful. Has cleared up a little on its own per patient. Worse at night. Now has red spots on her abdomen that come to a head and 'burst' open. Has been applying bacitracin and cleaning the areawith hydrogen peroxide. Denies pain, the spots itch when they are healing after they erupt. - patient has ulcerative colitis, currently treating with Sara Review of Systems: General: Feeling well. Skin: No other skin concerns. Medications: Reviewed in eD-H Allergies: Reviewed in eD-H Skin Examination: Full skin examination: Patient asked to undress to their comfort level. Verbalized that the provider???s preference is that the patient to remove all clothing and that the provider will not examine areas patient elects to keep covered. Patient elects to keep underwear on and have the following examined: scalp, hair, face, ears, neck, chest, axillae, abdomen, back, and upper and lower extremities.Genitalia and buttocks were not examined. Assessment/Plan #. Papular Eczema - scattered 1-3 mm erythematous papules on bilateral forearms with background xerosis on the bilateral forearms. - Discussed importance of moisturizing with a bland cream to keep skin hydrated. - Start Rx: Triamcinolone 0.1% cream Apply to affected areas on arms twice daily for two weeks, then take a one week break and then use as needed for maintenance. #. Favor Folliculitis - Scattered and inflammatory papules with central erosions on the abdomen - Recommended she RTC if she has a new spot for further testing, either biopsy or culture. - Start Rx: Clindamycin 1% lotion apply to affected areas on abdomen twice daily for ten days Other: ??? N/A RTC: PRN []Note routed to workers compensation legal secretary []Recall placed in scheduling system []Appointment scheduled at checkout Scribe attestation: YG Bauer has performed the documentation for this encounter in thepresence of and acting as a scribe for Marc Augustine MD. I performed the above scribed service and agree with the accuracy of the documentation in this encounter. Reviewed and signed by: Marc Augustine MD [facility] documented in this encounter Plan of Treatment Upcoming Encounters Date Type Department Care Team (Late st Contact Info) Description 04/19/2024 10:00 AM EDT Hospital Encounter Non-[place] [address] Arrived 04/29/2024 9:50 AM EDT Appointment MRI at [place] [address] Luis Alfredo Velazquez MD [facility] [place] [address] 04/29/2024 9:50 AM EDT Appointment MRI at [place] [phone] Luis Alfredo Velazquez MD [facility] [place] [address] 06/07/2024 2:30 PM EDT TH Visit (TeleHealth) Gastroenterology at [place] [address] Dajuan Rachel MD [facility] [place] [address] 07/02/2024 2:00 PM EDT Appointment Non-Invasive Cardiology Lab [place] [phone] Luis Alfredo Velazquez MD [facility] [place] [address] 07/02/2024 4:40 PM EDT Office Visit Cardiology at [address] [address] Luis Alfredo Velazquez MD [facility] [place] [address] documented as of this encounter Visit Diagnoses Diagnosis Folliculitis Other specified disease of hair and hair follicles Papular eczema Contact dermatitis and other eczema, due to unspecified cause documented in this encounter Care Teams Homicide Squad Lieutenant Relationship Specialty Start Date End Date Marcio Devlin DO [address] [place] [address] PCP - General Family Medicine 11/11/17 documented as of this encounter
--- OUTSIDE RECORDS SUMMARY | 2024-04-08 02:29 | XMS_ITS | Encounter Summary ---
Author Organization [facility] [place] [address] Care Team Providers Care Manager Stylist Name Role Phone Marcio Devlin DO Primary Care Provider [phone] Reason for Visit * Reason Comments Prior Authorization Stelara 90mg/ml SOSY Encounter Details Date Type Department Care Team (Late st Contact Info) Description 07/18/2021 Specialty [place] [phone] Silviano Villalta, [facility] Social History Tobacco Use Types Packs/Day Years [...] as of this encounter Progress Notes * Silviano Villalta - 07/18/2021 12:09 PM EDT Request received via fax for a prior authorization for patient's medication, Stelara. Specialty pharmacy team to assist with PA. * Silviano Villalta - 07/18/2021 12:09 PM EDT [facility], Medication Prior Authorization Submission Patient: Kim Funes Patient : 1960 Patient Address: [address] [place] [phone] (home) Medication Name: STELARA 90 MG/ML SUBCUTANEOUS SYRINGE Medication ID: [id number] Subscriber Insurance: [employer] ([facility]) Subscriber Insurance Comment: Phone: [phone] Fax: Physician: Dajuan BERRY Physician Comment: Sent Via: [facility] Truong: [id number] Ref/Case/PA#: Medication Strength Frequency Requested: Inject the contents of one syringe (1ml) subcutaneously every 8 weeks. Qty/Day Supply: New Start: Renewal Diagnosis & ICD-10 Code: Ulcerative pancolitis without complication K51.00 Patient Notified: No Submission Notes: None Silviano Villalta 07/18/21 12:13 PM * Silviano Villalta - 07/18/2021 12:09 PM EDT [facility], Prior Authorization Approval Medication Name: STELARA 90 MG/ML SUBCUTANEOUS SYRINGE Medication ID: [id number] Approval Dates: 07/23/2021 to 07/22/2022 Insurance requirements/notes: None Other Notes: None Case/Reference #: [id number] Approval notification Received via: Fax Copay: n/a Copay assistance: Other (Enter Comment) Copay Notes: Insurance Mandate of [facility] unable to see co-pay. Insurance mandated Pharmacy: [facility] Fillable at [facility]: No Pharmacy staff will be reaching out to the patient to inform them of their medication's approval bytheir insurance. If applicable, a pharmacist will speak with the patient to offer our specialty pharmacy services and to arrange delivery of their medication. Silviano Villalta 07/24/21 10:36 AM documented in this encounter Plan of Treatment Upcoming Encounters Date Type Department Care Team (Late st Contact Info) Description 04/19/2024 10:00 AM EDT Hospital Encounter Non-Invasive Cardiology Lab [place] [phone] Arrived 04/29/2024 9:50 [place] [address] Luis Alfredo Velazquez MD [facility] [place] [address] 04/29/2024 9:50 AM EDT Appointment MRI at [place] [phone] Luis Alfredo Velazquez MD [facility] [place] [address] 06/07/2024 2:30 PM EDT TH Visit (TeleHealth) Gastroenterology at [place] [phone] Dajuan Berry MD [facility] [place] [address] 07/02/2024 2:00 PM EDT Appointment Non-[place] [phone] Luis Alfredo Velazquez MD [facility] [place] [address] 07/02/2024 4:40 PM EDT Office Visit Cardiology at [address] [phone] Luis Alfredo Velazquez MD [facility] [place] [address] documented as of this encounter Visit Diagnoses Not on filedocumented in this encounter Care Teams Manager Stylist Relationship Specialty Start Date End Date Marcio Devlin DO [address] [facility] [place] [address] PCP - General Family Medicine 11/11/17 documented as of this encounter
--- OUTSIDE RECORDS SUMMARY | 2024-04-08 02:29 | XMS_ITS | Encounter Summary ---
Author Organization [facility] Address [facility] [place] [address] Care Team Providers Care Bran Mixer Name Role Phone Marcio Devlin DO Primary Care Provider [phone] Encounter Details Date Type Department Care Team (Late st Contact Info) Description 07/19/2021 Orders [place] [phone] Gabe Fong MD [facility] [place] [address] Ulcerative colitis without complications, unspecified location; High [...] AM EDT Hospital Encounter [place] [address] Arrived 04/29/2024 9:50 AM [place] [phone] Luis Alfredo Velazquez MD [facility] [place] [address] 04/29/2024 9:50 AM [place] [phone] Luis Alfredo Velazquez MD [facility] [place] [address] 06/07/2024 2:30 PM EDT TH Visit (TeleHealth) [place] [phone] Dajuan Rachel MD [facility] [place] [address] 07/02/2024 2:00 PM EDT Appointment [place] [phone] Luis Alfredo Velazquez MD [facility] [place] [address] 07/02/2024 4:40 PM EDT Office Visit Cardiology at [address] [phone] Luis Alfredo Velazquez MD [facility] [place] [address] documented as of this encounter Results * Hepatitis B Core Antibody, Total (12/13/2021 10:05 AM EDT) Hep B Core Ab Negative Negative [facility] Blood 12/13/2021 10:0 5 AM EDT 12/13/2021 10:18 AM EDT Narrative Resulting Agency Comment Spec In Lab Gabe Fong MD CHEMISTRY ORDERABLES [facility] [place] [address] documented in this encounter Visit Diagnoses Diagnosis Ulcerative colitis without complications, unspecified location High risk medication use Encounter for long-term (current) use of other medications Inflammatory arthropathy Arthropathy, unspecified, site unspecified Morning joint stiffness Stiffness of joint, not elsewhere classified, unspecified site documented in this encounter Care Teams Bran Mixer Relationship Specialty Start Date End Date Marcio Devlin DO [address] [place] [address] PCP - General Family Medicine 11/11/17 documented as of this encounter
--- OUTSIDE RECORDS SUMMARY | 2024-04-08 02:29 | XMS_ITS | Encounter Summary ---
Author Organization [facility] Address [facility] [place] [address] Care Team Providers Care Experienced Truck Driver Name Role Phone Marcio Devlin DO Primary Care Provider [phone] Encounter Details Date Type Department Care Team (Late st Contact Info) Description 07/24/2021 Refill [place] [phone] Dajuan Rachel MD [facility] DR GASTROENTER[place] [address] Ulcerative pancolitis without complication Social History Tobacco [...] AM EDT Hospital Encounter Non[place] [address] Arrived 04/29/2024 9:50 AM EDT Appointment MRI at [place] [phone] Luis Alfredo Velazquez MD [facility] [place] [address] 04/29/2024 9:50 [place] [address] Luis Alfredo Velazquez MD [facility] [place] [address] 06/07/2024 2:30 PM EDT TH Visit (TeleHealth) Gastroenterology at [place] [phone] Dajuan Rachel MD [facility] [place]STR[place] [address] 07/02/2024 2:00 PM EDT Appointment Non-Invasive Cardiology Lab [address] Luis Alfredo Velazquez MD [facility] [place] [address] 07/02/2024 4:40 PM EDT Office Visit Cardiology at [place] [phone] Luis Alfredo Velazquez MD [facility] [place] [address] documented as of this encounter Visit Diagnoses Diagnosis Ulcerative pancolitis without complication documented in this encounter Care Teams Experienced Truck Driver Relationship Specialty Start Date End Date Marcio Devlin DO [address] [place] [address] PCP - General Family Medicine 11/11/17 documented as of this encounter
--- OUTSIDE RECORDS SUMMARY | 2024-04-08 02:29 | XMS_ITS | Encounter Summary ---
Author Organization [facility] [place] [address] Care Team Providers Care Legal Coordinator Name Role Phone Marcio Devlin DO Primary Care Provider [phone] Reason for Visit * Treatment/Therapy Plan Authorization (Routine) - Closed Specialty Diagnoses / Procedures Referred By Contac t Referred To Contact Diagnoses Ulcerative pancolitis with other complication Procedures TC USTEKINUMAB (130MG/26ML), PER 1MG, INTRAVENOUS USE inf Dajuan Rachel MD [facility] [place] [address] [facility] Med Infusion [address] [place] [phone] Referral ID Status Reason Start Date Expiration Date Visits Re quested Visits Authorized [id number] Closed 02/08/2021 05/11/2021 5 5 Encounter Details Date Type Department Care Team (Latest Contact Info) Description 03/21/2021 1:24 PM EDT - 03/21/2021 11:59 PM EDT Hospital Encounter [place] [address] Ulcerative pancolitis with other complication Discharge Disposition: Home Social History Tobacco Use [...] Sign Reading Time Taken Comments Blood Pressure 135/66 03/21/2021 1:29 PM EDT Pulse 63 03/21/2021 1:29 PM EDT Temperature 35.8 ??C (96.4 ??F) 03/21/2021 1:29 PM ED T Respiratory Rate 16 03/21/2021 1:29 PM EDT Oxygen Saturation 100% 03/21/2021 1:29 PM EDT Inhaled Oxygen Concentration - - Weight 84.2 kg (185 lb 9.6 oz) 03/21/2021 1:29 P M EDT Height - - Body Mass Index 29.96 12/19/2020 12:13 PM EDT documented in this encounter Medications at Time [...] by mouth daily. SUMAtriptan (IMITREX) 20 mg/actuation [place], Non-Aerosol 1 spray as needed. 11/03/2017 metFORMIN [...] 12/24/2012 10/07/2023 ustekinumab (Stelara) 90 mg/mL subcutaneous injectionIndications: Ulcerative pancolitis without complication Inject 1 mL subcutaneously Every 8 Weeks. 1 Syringe 2 02/13/2021 03/23/2021 budesonide (Uceris) 9 mg tablet, delayed & ext.release Take 9 mg by mouth daily. 30 each 3 12/06/2020 07/23/2021 MORENITA Ortega Pen 40 mg/0.4 mL Pen Injector KitIndications:Ulcera tive pancolitis without complication INJECT 40 MG UNDER THE SKIN EVERY 7 DAYS 12 kit 12 10/17/2020 07/23/2021 metoprolol succinate (TOPROL-XL) 100 mg Tablet Sustained [...] puffs into the lungs daily. 02/21/2011 10/07/2023 sulfaSALAzine (AZULFIDINE) 500 mg tablet Take 1,000 mg by mouth 2 times daily. 02/21/2011 07/23/2021 documented as of this encounter Progress Notes * Rosemarie Ying, RN - 03/21/2021 2:23 PM EDT INFUSION THERAPY ADMINISTRATION NOTES DIAGNOSIS: The encounter diagnosis was Ulcerative pancolitis with other complication. REASON FOR VISIT: Stelara infusion Allergies Allergen Reactions ??? Ibuprofen chest pains, Patient reported ??? Celebrex [Celecoxib] Rash ??? Lodine [Etodolac] Itching ??? Amoxicillin-Pot Clavulanate Nausea And Vomiting Nausea/Vomiting, patient reported ??? Cephalexin Nausea And Vomiting Nausea/Vomiting, Patient reported ??? Doxycycline Nausea And Vomiting Nausea/Vomiting, Patient reported SUBJECTIVE: Kim arrives to med infusion, oriented to room and call canales system. Nursing education about medication and process provided and all questions/concerns addressed. OBJECTIVE: n/a VITAL SIGNS: BP 135/66 (BP Location (NBP): Left arm, Patient Position: Sitting, BP Cuff Sizes: Large Adult (32-43 cm)) Pulse 63 Temp 35.8 ??C (96.4 ??F) (Temporal) Resp 16 Wt 84.2 kg (185 lb 9.6 oz) SpO2 100% BMI 29.96 kg/m?? IF PAIN >5, INTERVENTION AND EFFECTIVENESS: n/a LAB DATA: No results found for this or any previous visit (from the past 24 hour(s)). IV ACCESS: Peripheral IV Line - Single Lumen 03/21/211334 median vein (underside of arm), right 22 gauge;1 inlength (Active) Indication/Daily Review of Necessity medication therapy intermittent 03/21/211334 Site Preparation/Maintenance site cleansed: chlorhexidine solution;dressing: transparent semipermeable applied 03/21/211334 Patency/Maintenance flushed without difficulty;alcohol impregnated cap applied;blood return, able to obtain 03/21/211334 Site Signs/Symptoms no redness;no swelling;no warmth;no pain 03/21/211334 ANTIEMETICS/PREMEDS: DOSE, ROUTE, START TIME, STOP TIME Tylenol 650mg PO @ 1330 Claritin 10mg PO @ 1330 Patient identification and orders checked against actual dose given at bedside by Dajuan Ying RN. MEDICATION/TREATMENT: DOSE, ROUTE, START TIME, STOP TIME: ??? acetaminophen 650 mg Oral Once ### ??? loratadine 10 mg Oral Once ### ??? ustekinumab (Stelara) in sodium chloride 0.9% 250 mL infusion 390 mg Intravenous Once ### Administration times: See MARTI Alvarez remained 30 minutes post infusion per protocol for observation. REACTIONS (DESCRIPTION, TIME, INTERVENTION AND EFFECTIVENESS): None. ASSESSMENT: Awake and alert - tolerated treatment well. PLAN: F/U with injections. documented in this encounter Plan of Treatment Upcoming Encounters Date Type Department Care Team (Late st Contact Info) Description 04/19/2024 10:00 AM EDT Hospital Encounter Non[place] [phone] Arrived 04/29/2024 9:50 AM EDT App[place]ment [place] [phone] Luis Alfredo Velazquez MD [facility] [place] [address] 04/29/2024 9:50 AM EDT [place] [phone] Luis Alfredo Velazquez MD [facility] [place] [address] 06/07/2024 2:30 PM EDT TH Visit (TeleHealth) [place] [phone] Dajuan Rachel MD [facility] [place] [address] 07/02/2024 2:00 PM EDT Appointment Non[place] [phone] Luis Alfredo Velazquez MD [facility] [place] [address] 07/02/2024 4:40 PM EDT Office Visit Cardiology at [address] [place] [address] Luis Alfredo Velazquez MD [facility] [place] [address] documented as of this encounter Visit Diagnoses Diagnosis Ulcerative pancolitis with other complication documented in this encounter Administered Medications Inactive Administered Medications - up to 3 most recent administrations Medication Order MAR Action Action Date Dose Rate Site acetaminophen (Tylenol) 325 mg tablet 1 dose, Starting on Fri03/21/21 at 1334, Until Fri03/21/21 at 1330, Rosemarie Ying I.: cabinet override acetaminophen (Tylenol) tablet 650 mg 650 mg, Oral, ONCE, 1 dose, On Fri03/21/21 at 1345, Maximum dose of acetaminophen is 4,000 mg from all sources in 24 hours, Routine Given 03/21/2021 1:30 PM EDT 650 mg loratadine (Claritin) 10 mg tablet 1 dose, Starting on Fri03/21/21 at 1335, Until Fri03/21/21 at 1330, Rosemarie Ying I.: cabinet override loratadine (Claritin) tablet 10 mg 10 mg, Oral, ONCE, 1 dose, On Fri03/21/21 at 1345, Routine Given 03/21/2021 1:30 PM EDT 10 mg ustekinumab (Stelara) 390 mg in sodium chloride 0.9% 250 mL infusion 390 mg, Intravenous, ONCE, 1 dose, On Fri03/21/21 at 1430, Administer over 60 Minutes, Use a 0.2 micron filter for administration. Observe patient 30 minutes post infusion., Restricted to outpatient treatment of moderate-severe Crohn? s Disease or Ulcerative Colitis. Is this being used for Crohn? s Disease or Ulcerative Colitis? No, Restricted to this indication, use outside of this indication needs P&T approval: Approval not obtained New Bag 03/21/2021 2:57 PM EDT 390 mg 250 mL/hr documented in this encounter Care Teams Legal Coordinator Relationship Specialty Start Date End Date Marcio Devlin DO [address] [place] [address] PCP - General Family Medicine 11/11/17 documented as of this encounter
--- OUTSIDE RECORDS SUMMARY | 2024-04-08 02:29 | XMS_ITS | Encounter Summary ---
Author Organization [facility] [place] [address] Care Team Providers Care Oyster Picker Name Role Phone Marcio Devlin DO Primary Care Provider [phone] Reason for Referral * Consultation (Routine) - Closed Specialty Diagnoses / Procedures Referred By Missy escalera Referred To Contact Dermatology Diagnoses Ulcerative pancolitis without complication Rash and other nonspecific skin eruption Rosemarie Morrow APRN [facility] [place] [address] [facility] Dermatology [address] [place] [address] Referral ID Status Reason Start Date Expiration Date V isits Requested Visits Authorized [id number] Closed Consult, Test & Treat 07/09/2021 07/09/2022 1 1 Encounter Details Date Type Department Care Team (Late st Contact Info) Description 07/09/2021 Orders [place] [address] Rosemarie Morrow APRN [facility] [place] [address] Ulcerative pancolitis without complication; Rash and other nonspecific skin eruption Social History Tobacco Use Types Packs/Day Years [...] AM EDT Hospital Encounter Non-Invasive Cardiology Lab [place] [phone] Arrived 04/29/2024 9:50 AM EDT Appointment MRI at [place] [phone] Luis Alfredo Velazquez MD [facility] [place] [address] 04/29/2024 9:50 AM EDT Appointment MRI at [place] [phone] Luis Alfredo Velazquez MD [facility] [place] [address] 06/07/2024 2:30 PM EDT TH Visit (TeleHealth) Gastroenterology at [place] [phone] Dajuan Rachel MD [facility] [place] [address] 07/02/2024 2:00 PM EDT Appointment Non-Invasive [place] [address] Luis Alfredo Velazquez MD [facility] [place] [address] 07/02/2024 4:40 PM EDT Office Visit Cardiology at [address] [address] Luis Alfredo Velazquez MD [facility] [place] [address] Scheduled Referrals Name Type Priority Associated Diagnoses Orde r Schedule Referral to Dermatology Outpatient Referral Routine Ulcerative pancolitis without complication Rash and other nonspecific skin eruption Ordered: 07/09/2021 documented as of this encounter Visit Diagnoses Diagnosis Ulcerative pancolitis without complication Rash and other nonspecific skin eruption documented in this encounter Care Teams Oyster Picker Relationship Specialty Start Date End Date Marcio Devlin DO [address] [place] [address] PCP - General Family Medicine 11/11/17 documented as of this encounter
--- OUTSIDE RECORDS SUMMARY | 2024-04-08 02:29 | XMS_ITS | Encounter Summary ---
Author Organization [facility] Address [facility] [place] [address] Care Team Providers Care Analysis Reporting Developer Name Role Phone Marcio Devlin DO Primary Care Provider [phone] Reason for Visit * Reason Comments Follow-up Encounter Details Date Type Department Care Team (Late st Contact Info) Description 12/13/2021 9:00 AM EDT Office Visit Rheumatology at [facility] [place] [address] Gabe Fong MD [facility] [place] [address] Ankylosing spondylitis of cervical region; Neck pain; [...] Sign Reading Time Taken Comments Blood Pressure 145/70 12/13/2021 8:42 AM EDT Pulse 56 12/13/2021 8:42 AM EDT Temperature 36.3 ??C (97.4 ??F) 12/13/2021 8:42 AM ED T Respiratory Rate 16 12/13/2021 8:42 AM EDT Oxygen Saturation 100% 12/13/2021 8:42 AM EDT Inhaled Oxygen Concentration - - Weight 78.2 kg (172 lb 6.4 oz) 12/13/2021 8:42 A M EDT Height 167.6 cm (5' 5.98) 12/13/2021 8:42 AM ED T Body Mass Index 27.84 12/13/2021 8:42 AM EDT documented in this encounter Progress Notes * Gabe Fong MD - 12/13/2021 9:00 AM EDT Rheumatology Follow-Up Video Note [...] medication regimen. recentlys withc to stelara and AZA. She is on low-dose dose azathioprine we did not increase the dose. She notces more hip pain seen by the hip doc dxwith bursitis. She notes some reduced neck rotations She is doing physcial therapy x2 and doing t home. She has a richard appointment with Dr Wilson arroyo.repeat colo. Her enck is stiff she has rhomboid pain in the abck shouder WOM intact because she had stopped that when she got Covid. No issues with GI related infections. inflammatorymarkers are elevated. R. 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 Physical Exam: BP 145/70 Pulse 56 Temp 36.3 ??C (97.4 ??F) (Temporal) Resp 16 Ht 167.6 cm (5' 5.98) Wt 78.2 kg (172 lb 6.4 oz) SpO2 100% BMI 27.84 kg/m?? General: NAD [...] related with ankylosing spondylitis- - UC quite - Concern is progressing Malcom appears quite except hip pain a site of replacement - discussed increasing AZA - though little benefit from stelera- rec switching to Xeljanz or edmciade. Would continue Remicade and AZA if GI okay and or place on xeljanz monotherapy Hip Replacement - with trochanteric hip pain- rec orth eval will get XR- currnelty in PT . High risk medication high feng of [...] medication Orders Placed This Encounter Procedures ??? XR Cervical Spine 2 or 3 Views ??? XR Lumbar Spine 2 Or 3 Views (Generic) ??? Lipid Panel (Reflex Direct LDL) Return in about 4 weeks (around 01/10/2022) for In Person. documented in this encounter Plan of Treatment Upcoming Encounters Date Type Department Care Team (Late st Contact Info) Description 04/19/2024 10:00 AM EDT Hospital Encounter Non-[place] [address] Arrived 04/29/2024 9:50 AM EDT [place] [address] Luis Alfredo Velazquez MD [facility] [place] [address] 04/29/2024 9:50 AM [place] [address] Luis Alfredo Velazquez MD [facility] [place] [address] 06/07/2024 2:30 PM EDT TH Visit (TeleHealth) [place] [address] Dajuan Rachel MD [facility] [place] [address] 07/02/2024 2:00 PM EDT Appointment Non-Invasive Cardiology Lab [place] [phone] Luis Alfredo Velazquez MD [facility] [place] [address] 07/02/2024 4:40 PM EDT Office Visit Cardiology at [place] [phone] Luis Alfredo Velazquez MD [facility] [place] [address] documented as of this encounter Procedures Procedure Name Priority Date/Time Associated Diagnosis Comments HC [facility] TPMT ACTIVITY PROFILE Routine 12/13/2021 10:05 AM EDT Ulcerative colitis without complications, unspecified location High risk medication use Inflammatory arthropathy Morning joint stiffness HC C-REACTIVE PROTEIN Routine 12/13/2021 10:05 AM EDT Ankylosing spondylitis of cervical region Neck pain Ulcerative colitis without complications, unspecified location Pain in left hip Chronic midline low back pain without sciatica HEMOGRAM Routine 12/13/2021 10:05 AM EDT Ankylosing spondylitis of cervical region Neck pain Ulcerative colitis without complications, unspecified location Pain in left hip Chronic midline low back pain without sciatica DIFFERENTIAL, AUTOMATED Routine 12/13/2021 10:05 AM EDT Ankylosing spondylitis of cervical region Neck pain Ulcerative colitis without complications, unspecified location Pain in left hip Chronic midline low back pain without sciatica HC CREATININE Routine 12/13/2021 10:05 AM EDT Ankylosing spondylitis of cervical region Neck pain Ulcerative colitis without complications, unspecified location Pain in left hip Chronic midline low back pain without sciatica HC HEPATITIS B CORE AB Routine 12/13/2021 10:05 AM EDT Ulcerative colitis without complications, unspecified location High risk medication use Inflammatory arthropathy Morning joint stiffness HC VENIPUNCTURE Routine 12/13/2021 10:05 AM EDT Ankylosing spondylitis of cervical region Neck pain Ulcerative colitis without complications, unspecified location Pain in left hip Chronic midline low back pain without sciatica HC CBC,PLT & AUTO DIFF Routine 12/13/2021 10:05 AM EDT Ankylosing spondylitis of cervical region Neck pain Ulcerative colitis without complications, unspecified location Pain in left hip Chronic midline low back pain without sciatica HEPATIC FUNCTION PANEL Routine 12/13/2021 10:05 AM EDT Ankylosing spondylitis of cervical region Neck pain Ulcerative colitis without complications, unspecified location Pain in left hip Chronic midline low back pain without sciatica LIPID PANEL (REFLEX DIRECT LDL) Routine 12/13/2021 10:05 AM EDT Ankylosing spondylitis of cervical region Neck pain Ulcerative colitis without complications, unspecified location documented in this encounter Results * Differential, Automated (12/13/2021 10:05 AM EDT) Neutrophils % 60.0 % [facility] Neutr Abs (ANC) 4.27 1.70 - 6.10 x10(3)/[facility] Lymphocytes % 28.7 % [facility] Lymphocytes Abs 2.0 0.9 - 3.2 x10(3)/[facility] Monocytes % 8.4 % [facility] Monocyte Abs 0.6 0.3 - 0.9 x10(3)/[facility] Eosinophils % 2.2 % [facility] Eosinophils Abs 0.2 0.0 - 0.4 x10(3)/[facility] Basophils % 0.4 % [facility] Basophils Abs 0.0 0.0 - 0.1 x10(3)/[facility] Immature Gran % 0.30 % [facility] Comment: Immature granulocytes(IG's)percentage and absolute count will include metamyelocytes, myelocytes, and promyelocytes. Blood smears from CBCs yielding IG's will be scanned manually for concordance. If this scan disagrees with the automated IG or if promyelocytes are noted, a manual differential will be performed. Melanie Gran Abs 0.02 0.00 - 0.04 x10(3)/[facility] Blood 12/13/2021 10:0 5 AM EDT 12/13/2021 10:18 AM EDT Narrative Resulting Agency Comment Spec In Lab Gabe Fong MD HEMATOLOGY ORDERABLE S [facility] [place] [address] * (ABNORMAL) Hemogram (12/13/2021 10:05 AM EDT) WBC 7.1 4.0 - 9.5 x10(3)/[facility] RBC 4.60 4.00 - 5.21 x10(6)/[facility] Hemoglobin 13.5 11.7 - 15.5 g/dL [facility] Hematocrit 42.1 35.7 - 45.8 % [facility] MCV 91.5 82.6 - 94.4 fL [facility] MCH 29.3 27.1 - 32.0 pg [facility] MCHC 32.1 31.7 - 35.0 g/dL [facility] Platelets 283 145 - 357 x10(3)/[facility] RDWSD 47.9(H) 37.0 - 46.0 fL [facility] RDWCV 14.4(H) 11.5 - 14.1 % [facility] MPV 9.9 7.6 - 12.9 fL [facility] nRBC % Auto 0.0 % [facility] nRBC Abs Auto 0.000 0.000 - 0.000 x10(3)/[facility] Blood 12/13/2021 10:0 5 AM EDT 12/13/2021 10:18 AM EDT Narrative Resulting Agency Comment Spec In Lab Gabe Fong MD HEMATOLOGY ORDERABLE S [facility] [place] [address] * TPMT Activity Profile, RBC (12/13/2021 10:05 AM EDT) TPMT Activity Profile, RBC Test ? Result ?Flag ??Unit ? RefValue TPMT Activity Profile, RBC ??Interpretation ? SEE COMMENTS ?*Normal* In this whole blood sample, the profile of ?activity of thiopurine methyltransferase using three ?different substrates was normal or essentially normal. ? -ADDITIONAL INFORMATION--------- ?Liquid Chromatography-[facility] Mass Spectrometry (LC-MS/MS) ?This test was developed and its performance characteristics ?determined by [facility] in a manner consistent with CLIA ?requirements. This test has not been cleared or approved by ?the U.S. Food and Drug Administration. ??6-Methylmercaptopu rine ? 3.63 ?nmol/mL/h ??3.00-6.66 ??6-Methylmercaptopu rine riboside ?7.44 ?nmol/mL/h ??5.04-9.57 ??6-Methylthioguanin e riboside ? 4.87 ?nmol/mL/h ??2.70-5.84 ??Reviewed By ?Nathaniel Serrato, Ph.D ?Test Performed by: ?[facility] ?[address] [place] [address] ?International Tax Manager: Oc Lorenzo M.D. Ph.D.; CLIA# [id number] [facility] Blood 12/13/2021 10:0 5 AM EDT 12/13/2021 3:01 PM EDT Narrative Resulting Agency Comment Spec In Lab Gabe Fong MD CHEMISTRY ORDERABLES [facility] [place] [address] * Hepatitis B Core Antibody, Total (12/13/2021 10:05 AM EDT) Hep B Core Ab Negative Negative [facility] Blood 12/13/2021 10:0 5 AM EDT 12/13/2021 10:18 AM EDT Narrative Resulting Agency Comment Spec In Lab Gabe Fong MD CHEMISTRY ORDERABLES Performing Organization Address [facility] Co de Phone Number [facility] [place] [address] * Creatinine (12/13/2021 10:05 AM EDT) Creatinine 0.88 0.70 - 1.20 mg/dL [facility] Estimated GFR 71 >=60 mL/min/1. 73 m?? [facility] Comment: This patient? s estimated glomerular filtration rate (eGFR) is between 71 mL/min/1.73 m2 (patients with less muscle mass) and 83 mL/min/1.73 m2 (patients with more muscle mass) [...] and symptoms in addition to eGFR. Blood 12/13/2021 10:0 5 AM EDT 12/13/2021 10:18 AM EDT Narrative Resulting Agency Comment Spec In Lab Gabe Fong MD CHEMISTRY ORDERABLES [facility] [place] [address] * (ABNORMAL) Hepatic Function Panel (12/13/2021 10:05 AM EDT) Total Protein 8.4(H) 6.1 - 8.0 g/dL [facility] Albumin 4.3 3.2 - 5.2 g/dL [facility] AST 23 0 - 30 unit/L [facility] ALT 17 0 - 30 unit/L [facility] Alk Phos 134(H) 35 - 105 unit/L [facility] Total Bilirubin 0.3 0.2 - 1.3 mg/dL [facility] Bili, Direct 0.1 0.0 - 0.3 mg/dL [facility] Blood 12/13/2021 10:0 5 AM EDT 12/13/2021 10:18 AM EDT Narrative Resulting Agency Comment Spec In Lab Gabe Fong MD CHEMISTRY ORDERABLES Performing Organization Address City/[facility]/ZIP Co de Phone Number [facility] [place] [address] * (ABNORMAL) CRP, acute inflammation (12/13/2021 10:05 AM EDT) [facility] CRP 23.9(H) <=4.9 mg/L [facility] Blood 12/13/2021 10:0 5 AM EDT 12/13/2021 10:18 AM EDT Narrative Resulting Agency Comment Spec In Lab Gabe Fong MD CHEMISTRY ORDERABLES Performing Organization Address City/[facility]/ZIP Co de Phone Number [facility] [place] [address] * (ABNORMAL) Sedimentation rate (12/13/2021 10:05 AM EDT) Pathologist [facility] Sed Rate 70(H) 2 - 39 mm/hr [facility] Comment: Effective August 25, 2019 new capillary photometric technology has resulted in a change in reference ranges. It is recommended that each ESR result be reviewed with its own age appropriate reference range. Blood 12/13/2021 10:0 5 AM EDT 12/13/2021 10:18 AM EDT Narrative Resulting Agency Comment Spec In Lab Gabe Fong MD HEMATOLOGY ORDERABLE S [facility] [place] [address] * Lipid Panel (Reflex Direct LDL) (12/13/2021 10:05 AM EDT) Chol, Total 146 mg/dL [facility] Comment: Lower Risk: <200 mg/dL Average Risk: 200-239 mg/dL Higher Risk: >lh=634 mg/dL Triglycerides 343 mg/dL [facility] Comment: Average Risk/Lower Risk: <150 mg/dL Borderline High Risk: 150-199 mg/dL High Risk: 200-499 mg/dL Very High Risk: >nd=821 mg/dL HDL 42 mg/dL [facility] Comment: Males: ?? Higher Risk: <40 mg/dL Females: ?? Higher Risk: <50 mg/dL LDL Cholesterol 35 mg/dL [facility] Comment: Lowest Risk: <100 mg/dL Lower Risk: 100-129 mg/dL Borderline High Risk: 130-159 mg/dL High Risk: 160-189 mg/dL Very High Risk: >hr=585 mg/dL Chol/HDL Ratio 3.5 ratio [facility] Lipid Interpretation See Note [facility] Comment: Lipid management should be guided by a patient? s ASCVD risk, goals and preferences. ACC/AHA Guidelines recommend high intensity statin if clinical ASCVD or LDL greater than or equal to 190 mg/dL. http://tinyurl.com/RLK-LNU-Ttxknppva Adults aged 40-75 with LDL 70-189 mg/dL should have their 10 year ASCVD risk estimated with the ACC/AHA ASCVD risk tear down worker http://tools.acc.org/UBWCV-Gejo-Baghygwjy/ Statin should be discussed if risk greater than or equal to 7.5% in non-diabetics. With diabetes, moderate intensity statin is recommended if risk less than 7.5%, high intensity if risk greater than or equal to 7.5%. Annual lipid monitoring on statins is not necessary. Evaluate secondary causes of Triglycerides greater than 500 mg/dL or LDL greater than 190 mg/dL: See table 6 of ACC/AHA Guideline. Lifestyle modification is a critical component of ASCVD risk reduction. Blood 12/13/2021 10:0 5 AM EDT 12/13/2021 10:18 AM EDT Narrative Resulting Agency Comment Spec In Lab Gabe Fong MD CHEMISTRY ORDERABLES [facility] [place] [address] * XR Cervical Spine 2 or 3 [...] who have questions please contact the health lawn care worker that requested your imaging first. ? Narrative [...] patients who have questions please contactthe health lawn care worker that requested your imaging first. Electronically signed by: Ricardo Campbell MD, [facility]([phone]), at 12/13/2021 9:46 AM Gabe Fong MD IMG DX ORDERABLES documented [...] location documented in this encounter Care Teams Analysis Reporting Developer Relationship Specialty Start Date End Date Marcio Devlin DO [address] [place] [address] PCP - General Family Medicine 11/11/17 documented as of this encounter
--- OUTSIDE RECORDS SUMMARY | 2024-04-08 02:29 | XMS_ITS | Encounter Summary ---
Author Organization [facility] [place] [address] Care Team Providers Care Appliance Service Technician Name Role Phone Marcio Devlin DO Primary Care Provider [phone] Reason for Visit * Reason Comments Specialty Pharmacy Review Encounter Details Date Type Department Care Team (Late st Contact Info) Description 09/17/2021 Specialty [place] [phone] Berenice Novak, [facility] Social History Tobacco Use Types [...] encounter Progress Notes * Berenice Novak - 09/17/2021 11:59 PM EST The [facility] has completed a benefits investigation for Kim Graff Shantel to review their eligibility to fill at [facility]. Per patient's medication list they are prescribed Stelara and the medication is not able to be filled at the [facility]. documented in this encounter Plan of Treatment Upcoming Encounters Date Type Department Care Team (Late st Contact Info) Description 04/19/2024 10:00 AM EDT Hospital Encounter Non-Invasive [place] [address] Arrived 04/29/2024 9:50 AM EDT Appointment MRI at [place] [phone] Luis Alfredo Velazquez MD [facility] [place] [address] 04/29/2024 9:50 AM EDT [place] [address] Luis Alfredo Velazquez MD [facility] [place] [address] 06/07/2024 2:30 PM EDT TH Visit (TeleHealth) Gastroenterology at [place] [phone] Dajuan Rachel MD [facility] [place] [address] 07/02/2024 2:00 PM EDT Appointment Non-Invasive [place] [address] Luis Alfredo Velazquez MD [facility] [place] [address] 07/02/2024 4:40 PM EDT Office Visit Cardiology at [address] [address] Luis Alfredo Velazquez MD [facility] [place] [address] documented as of this encounter Visit Diagnoses Not on filedocumented in this encounter Care Teams Appliance Service Technician Relationship Specialty Start Date End Date Marcio Devlin DO [address] [place] [address] PCP - General Family Medicine 11/11/17 documented as of this encounter
--- OUTSIDE RECORDS SUMMARY | 2024-04-08 02:29 | XMS_ITS | Encounter Summary ---
Author Organization [facility] [place] [address] Care Team Providers Care Data Support Analyst Name Role Phone Marcio Devlin DO Primary Care Provider [phone] Reason for Visit * Reason Onset Date Comments Labs Only 08/02/2021 Encounter Details Date Type Department Care Team (Late st Contact Info) Description 08/02/2021 [place] [address] Alex Rodriguez, RN Labs Only Social History Tobacco Use Types Packs/Day Years [...] encounter Miscellaneous Notes * Telephone Encounter - Alex Rodriguez RN - 08/02/2021 7:14 PM EST Call received from Lab @ [facility] advising [id number] Qualitative can not be done at [facility] and they donot send out either. They can send out a Quantitative, but will need provider order before they call the patient back tocome back in for more labs. Gabe Fong MD sent to Alex Rodriguez RN; P [facility] [place] Caller: Unspecified (Yesterday, ??3:00 PM) She needs to have it here then. Or at [facility] site I spoke with Kim and she will come here to have test done. documented in this encounter Plan of Treatment Upcoming Encounters Date Type Department Care Team (Late st Contact Info) Description 04/19/2024 10:00 AM EDT Hospital Encounter Non-[place] [address] Arrived 04/29/2024 9:50 AM EDT Appointment MRI at [address] Luis Alfredo Velazquez MD [facility] [place] [address] 04/29/2024 9:50 AM EDT Appointment MRI at [place] [phone] Luis Alfredo Velazquez MD [facility] [place] [address] 06/07/2024 2:30 PM EDT TH Visit (TeleHealth) Gastroenterology at [place] [address] Dajuan Rachel MD [facility] [place] [address] 07/02/2024 2:00 PM EDT Appointment Non-[place] [address] Luis Alfredo Velazquez MD [facility] [place] [address] 07/02/2024 4:40 PM EDT Office Visit Cardiology at [address] [address] Luis Alfredo Velazquez MD [facility] [place] [address] documented as of this encounter Visit Diagnoses Not on filedocumented in this encounter Care Teams Data Support Analyst Relationship Specialty Start Date End Date aMrcio Devlin DO [address] [facility] [place] [address] PCP - General Family Medicine 11/11/17 documented as of this encounter
--- OUTSIDE RECORDS SUMMARY | 2024-04-08 02:29 | XMS_ITS | Encounter Summary ---
Author Organization [facility] [place] [address] Care Team Providers Care Guest Associate Name Role Phone Marcio Devlin DO Primary Care Provider [phone] Encounter Details Date Type Department Care Team (Late st Contact Info) Description 07/09/2021 Telephone [place] [address] Cedric Azar RN Social History Tobacco Use Types Packs/Day [...] encounter Miscellaneous Notes * Telephone Encounter - Cedric Azar RN - 07/09/2021 3:33 PM EDT Kim calls. About to take her second Stelara SQ dose. Got labs done at [facility] but wasn't sure if she needed Stelara level checked again. Stelara level was 4.2 on 05/16 (true trough prior to first SQ injection). Advised her this is a good level and we don't need to recheck it at this time. She is feeling good from a GI standpoint. However, in the last week or so has developed bilateral rashes on her arms. She is going to send us a picture. Not itchy or painful. They look like little blisters. She will send us a picture over myD-H Will discuss with Delilah Morrow and Dr. Rachel. She likely needs to see derm to evaluate if this could be related to Stelara. She last saw them in 2013 so would need a new referral documented in this encounter Plan of Treatment Upcoming Encounters Date Type Department Care Team (Late st Contact Info) Description 04/19/2024 10:00 AM EDT Hospital Encounter Non-Invasive Cardiology Lab [place] [phone] Arrived 04/29/2024 9:50 AM EDT Appointment MRI at [place] [address] Luis Alfredo Velazquez MD [facility] [place] [address] 04/29/2024 9:50 AM EDT [place] [phone] Luis Alfredo Velazquez MD [facility] [place] [address] 06/07/2024 2:30 PM EDT TH Visit (TeleHealth) Gastroenterology at [place] [phone] Dajuan Rachel MD [facility] [place] [address] 07/02/2024 2:00 PM EDT Appointment Non-Invasive [place] [phone] Luis Alfredo Velazquez MD [facility] [place] [address] 07/02/2024 4:40 PM EDT Office Visit Cardiology at [address] [place] [address] Luis Alfredo Velazquez MD [facility] [place] [address] documented as of this encounter Visit Diagnoses Not on filedocumented in this encounter Care Teams Guest Associate Relationship Specialty Start Date End Date Marcio Devlin DO [address] [place] [address] PCP - General Family Medicine 11/11/17 documented as of this encounter
--- OUTSIDE RECORDS SUMMARY | 2024-04-08 02:29 | XMS_ITS | Encounter Summary ---
Author Organization [facility] [place] [address] Care Team Providers Care Irrigator Overhead Name Role Phone Marcio Devlin DO Primary Care Provider [phone] Reason for Referral * Diagnostic Test (Routine) - Closed Specialty Diagnoses / Procedures Referred By Missy escalera Referred To Contact Radiology Diagnoses Chronic left hip pain Procedures MRI Hip wo Contrast Left (Generic) MRI Hip wwo Contrast Left MRI Hip wo Contrast Left (Generic) Gabe Fong MD [facility] [place] [address] [facility] [address] [place] [address] Referral ID Status Reason Start Date Expiration Date V isits Requested Visits Authorized [id number] Closed Specialty Service Requested 12/25/2021 06/26/2023 1 1 Encounter Details Date Type Department Care Team (Late st Contact Info) Description 12/25/2021 Telephone [place] [address] Gabe Fong MD [facility] [place] [address] Social History Tobacco Use Types Packs/Day Years [...] Telephone Encounter - Gabe Fong MD - 12/25/2021 4:24 PM EDT Telephone note Stop azathioprine Will request note on dizziness Workup has been negative documented in this encounter Plan of Treatment Upcoming Encounters Date Type Department Care Team (Late st Contact Info) Description 04/19/2024 10:00 AM EDT Hospital Encounter [place] [address] Arrived 04/29/2024 9:50 AM EDT Appointment MRI at [place] [address] Luis Alfredo Velazquez MD [facility] [place] [address] 04/29/2024 9:50 AM [place] [address] Luis Alfredo Velazquez MD [facility] [place] [address] 06/07/2024 2:30 PM EDT TH Visit (TeleHealth) Gastroenterology at [address] Dajuan Rachel MD [facility] [place] [address] 07/02/2024 2:00 PM EDT Appointment Non-[place] [address] Luis Alfredo Velazquez MD [facility] [place] [address] 07/02/2024 4:40 PM EDT Office Visit Cardiology at [address] [address] Luis Alfredo Velazquez MD [facility] [place] [address] documented as of this encounter Results * MRI Hip wo [...] who have questions please contact the health critical care specialist that requested your imaging first. ? Electronically signed by: Anusha Ledezma MD, [facility] ([phone]), at 02/04/2022 4:47 PM Narrative 02/04/2022 4:47 PM EDT EXAMINATION: MRI HIP WO CONTRAST LEFT (GENERIC) CLINICAL HISTORY: Hip replacement, nerve damage suspected; UC arthritis with hip pain and signicant tedenterness to palpation UC arthritis with hip pain and signicant tedenterness to palpation TECHNIQUE: Noncontrast MRI of the left hip was performed using axial oblique, coronal and sagittal PD FS sequences. Full pelvis [id number]-vm-mmas axial T1, coronal T1 and STIR sequences [...] and sagittal PD FS sequences. Full pelvis [id number] axialT1, coronal T1 and STIR sequences are [...] patients who have questions please contactthe health critical care specialist that requested your imaging first. Electronically signed by: Anusha Ledezma MD, [facility]([phone]), at 02/04/2022 4:47 PM Gaeb Fong MD [facility] ORDER[facility] documented in this encounter Visit Diagnoses Diagnosis Chronic left hip pain Pain in joint, pelvic region and thigh Chronic left hip pain Pain in joint, pelvic region and thigh documented in this encounter Care Teams Irrigator Overhead Relationship Specialty Start Date End Date Marcio Devlin DO [address] [place] [address] PCP - General Family Medicine 11/11/17 documented as of this encounter
--- OUTSIDE RECORDS SUMMARY | 2024-04-08 02:29 | XMS_ITS | Encounter Summary ---
Author Organization [facility] Address [facility] [place] [address] Care Team Providers Care Internet Salesperson Name Role Phone Marcio Devlin DO Primary Care Provider Encounter Details Date Type Department Care Team (Late st Contact Info) Description 09/03/2021 Orders [place] [address] Lola Haley, [facility] [place] [address] Social History Tobacco Use Types Packs/Day Years [...] AM EDT Hospital Encounter Non-[place] [address] Arrived 04/29/2024 9:50 AM EDT Appointment MRI at [place] [phone] Luis Alfredo Velazquez MD [facility] [place] [address] 04/29/2024 9:50 AM EDT Appointment MRI at [place] [address] Luis Alfredo Velazquez MD [facility] [place] [address] 06/07/2024 2:30 PM EDT TH Visit (TeleHealth) Gastroenterology at [address] Dajuan Rachel MD [facility] [place] [address] 07/02/2024 2:00 PM EDT Appointment Non-Invasive Cardiology Lab [address] Luis Alfredo Velazquez MD [facility] [place] [address] 07/02/2024 4:40 PM EDT Office Visit Cardiology at [place] [phone] Luis Alfredo Velazquez MD [facility] [place] [address] documented as of this encounter Visit Diagnoses Not on filedocumented in this encounter Care Teams Internet Salesperson Relationship Specialty Start Date End Date Marcio Devlin DO [address] [place] [address] PCP - General Family Medicine 11/11/17 documented as of this encounter
--- OUTSIDE RECORDS SUMMARY | 2024-04-08 02:29 | XMS_ITS | Encounter Summary ---
Author Organization [facility] Address [facility] [place] [address] Care Team Providers Care Forest Products Teacher Name Role Phone Marcio Devlin DO Primary Care Provider [phone] Encounter Details Date Type Department Care Team (Late st Contact Info) Description 12/25/2021 Orders [place] [address] Gabe Fong MD [facility] [place] [address] Social History Tobacco Use Types Packs/Day Years [...] AM EDT Hospital Encounter Non-[place] [phone] Arrived 04/29/2024 9:50 AM EDT Appointment MRI at [place] [phone] Luis Alfredo Velazquez MD [facility] [place] [address] 04/29/2024 9:50 AM EDT Appointment MRI at [address] Luis Alfredo Velazquez MD [facility] [place] [address] 06/07/2024 2:30 PM EDT TH Visit (TeleHealth) Gastroenterology at [address] Dajuan Rachel MD [facility] [place] [address] 07/02/2024 2:00 PM EDT Appointment Non-Invasive Cardiology Lab [address] Luis Alfredo Velazquez MD [facility] [place] [address] 07/02/2024 4:40 PM EDT Office Visit Cardiology at [place] [address] Luis Alfredo Velazquez MD [facility] [place] [address] documented as of this encounter Visit Diagnoses Not on filedocumented in this encounter Care Teams Forest Products Teacher Relationship Specialty Start Date End Date Marcio Devlin DO [address] [place] [address] PCP - General Family Medicine 11/11/17 documented as of this encounter
--- OUTSIDE RECORDS SUMMARY | 2024-04-08 02:29 | XMS_ITS | Encounter Summary ---
Author Organization [facility] [place] [address] Care Team Providers Care Processing Spec Name Role Phone Marcio Devlin DO Primary Care Provider [phone] Reason for Visit * Reason Comments Specialty Pharmacy Review Ustekinumab (S telara) 90mg/mL Syringe Encounter Details Date Type Department Care Team (Late st Contact Info) Description 01/18/2022 Specialty [place] [address] Alison Ortiz, [facility] Social History Tobacco Use Types Packs/Day [...] encounter Progress Notes * Alison Ortiz - 01/18/2022 11:59 PM EDT [facility] has completed a benefits investigation for Kim Funes to review their eligibility to fill at [facility]. Per patient's medication list they are prescribed Ustekinumab (Stelara) and the medication is not able to be filled at the [facility]. The patient must fill with [facility] under current insurance plan's mandate. documented in this encounter Plan of Treatment Upcoming Encounters Date Type Department Care Team (Late st Contact Info) Description 04/19/2024 10:00 AM EDT Hospital Encounter Non-Invasive [place] [phone] Arrived 04/29/2024 9:50 AM EDT Appointment MRI at [place] [phone] Luis Alfredo Velazquez MD [facility] [place] [address] 04/29/2024 9:50 [place] [phone] Luis Alfredo Velazquez MD [facility] [place] [address] 06/07/2024 2:30 PM EDT TH Visit (TeleHealth) Gastroenterology at [place] [phone] Dajuan Rachel MD [facility] DR [place]STROENTER[place] [address] 07/02/2024 2:00 PM EDT Appointment Non-Invasive [place] [phone] Luis Alfredo Velazquez MD [facility] [place] [address] 07/02/2024 4:40 PM EDT Office Visit Cardiology at [address] [address] Luis Alfredo Velazquez MD [facility] [place] [address] documented as of this encounter Visit Diagnoses Not on filedocumented in this encounter Care Teams Processing Spec Relationship Specialty Start Date End Date Marcio Devlin DO [address] [place], [place] [address] [place] [address] PCP - General Family Medicine 11/11/17 documented as of this encounter
--- OUTSIDE RECORDS SUMMARY | 2024-04-08 02:30 | XMS_ITS | Encounter Summary ---
Author Organization [facility] [place] [address] Care Team Providers Care And Taxi Instructor Bus Trolley Name Role Phone Marcio Devlin DO Primary Care Provider [phone] Reason for Visit * Auth/Cert Specialty Diagnoses / Procedures Referred By Contac t Referred To Contact Diagnoses Ulcerative colitis survey UC Procedures PRO COLONOSCOPY, DIAGNOSTIC PRO COLONOSCOPY, BIOPSY PRO COLONOSCOPY, REMV LESN, SNARE COLONOSCOPY, DIAGNOSTIC Referral ID Status Reason Start Date Expiration Date Visits Re quested Visits Authorized [id number] 1 1 Encounter Details Date Type Department Care Team (Latest Contact Info) Description 12/19/2020 11:22 AM EDT - 12/19/2020 2:23 PM EDT Hospital En[place] [address] Dajuan Rachel MD [facility] [place] [address] Discharge Disposition: Home Social History Tobacco Use [...] Sign Reading Time Taken Comments Blood Pressure 128/71 12/19/2020 1:29 PM EDT Pulse 58 12/19/2020 12:55 PM EDT Temperature 36.2 ??C (97.1 ??F) 12/19/2020 12:13 PM E DT Respiratory Rate 16 12/19/2020 1:30 PM EDT Oxygen Saturation 99% 12/19/2020 1:29 PM EDT Inhaled Oxygen Concentration - - Weight 77.1 kg (170 lb) 12/19/2020 12:13 PM EDT Height 167.6 cm (5' 6) 12/19/2020 12:13 PM EDT Body Mass Index 27.44 12/19/2020 12:13 PM EDT documented in this encounter Discharge Instructions * Discharge Instructions* Krishna Nolan RN - 12/19/2020 1:31 PM EDT Colonoscopy: What to Expect at Home Your [...] home? Activity Rest when you feel tired. ?? You can do your normal activities when it feels okay to do so. Diet ?? Follow your doctor's directions for eating. ?? Unless your doctor has told you not to, drink plenty of fluids. This helps to replace the fluidsthat were lost during the colon prep. ?? Do not drink alcohol. Medicines ?? Your doctor will tell you if and when you can restart your medicines. He or she will also give you instructions about taking any new medicines. ?? If you take blood thinners, such as warfarin (Coumadin), clopidogrel (Plavix), or aspirin, be sure to talk to your doctor. He or she will tell you if and when to start taking those medicines again. Make sure that you understand exactly what your doctor wants you to do. ?? If polyps were removed or a biopsy was done during the test, your doctor may tell you not to take aspirin or other anti-inflammatory medicines for a few days. These include ibuprofen (Advil, Motrin) and naproxen (Aleve). Other instructions ?? For your safety, do not drive or operate machinery until the medicine wears off and you can think clearly. Your doctor may tell you not to drive or operate machinery until the day after your test. ?? Do not sign legal documents or make major decisions until the medicine wears off and you can think clearly. The anesthesia can make it hard for you to fully understand what you are agreeing to. Additional Information for Sedation Patients For patients who received sedation: ?? You may have received medications before and/or during your procedure which effects your judgement and reaction time. ?? Do not drive, operate machinery, drink alcoholic beverages or make important decisions for 24 hours. ?? Be careful on stairs as you may be unsteady on your feet. ?? You may eat a regular diet as tolerated. ?? Do not smoke if you are alone. ?? IV site: Slight redness or tenderness is normal, you can use a warm compress if you would like. If tenderness and/or redness increase or if foul drainage occurs, please contact your Doctor. Please call [phone] before 8pm Mon-Fri with problems, questions or concerns. If you call after 8pm or on weekends, call the Hospital at [phone] and ask to speak to the Psychologist gas collection system operator and the pig furnace operator will contact that person for you. When should you call for help? Call [phone] anytime you think you may need emergency care. For example, call if: ?? You passed out (lost consciousness). ?? You pass maroon or bloody stools. ?? You have trouble breathing. Call your doctor now or seek immediate medical care if: ?? You have pain that does not get better after you take pain medicine. ?? You are sick to your stomach or cannot drink fluids. ?? You have new or worse belly pain. ?? You have blood in your stools. ?? You have a fever. ?? You cannot pass stools or gas. Watch closely for changes in your health, and be sure to contact your doctor if you have any problems. Where can you learn more? [facility] View your After Visit Summary and more online at [email or web address] If you would like to provide feedback about your hospital experience, please call the Office of Patient and Family Relations at . If you have received this After Visit Summary in error, please immediately return it in person to the department, or notify the [facility] Privacy Office by calling toll free at between the hours of 8AM and 5PM to arrange for our retrieval of the documents at no cost to you. Content Version: 12.2 ?? [id number] [employer]. Care instructions adapted under license by [facility]. If you have questions about a medical condition or this instruction, always ask your healthcare professional. [employer] disclaims any warranty or liability for your [...] by mouth daily. SUMAtriptan (IMITREX) 20 mg/actuation [place], Non-Aerosol 1 spray as needed. 11/03/2017 metFORMIN [...] by mouth 2 times daily. 12/24/2012 10/07/2023 budesonide (Uceris) 9 mg tablet, delayed & ext.release Take 9 mg by mouth daily. 30 each 3 12/06/2020 07/23/2021 MORENITA Ortega, Pen 40 mg/0.4 mL Pen Injector KitIndications:Ulcerative pancolitis without complication INJECT 40 MG UNDER [...] 100 mg by mouth daily. 11/26/2023 fluticasone (FLONASE) 50 mcg/Actuation nasal spray 2 sprays by Each Nare route daily. 02/07/2021 fluticasone (FLOVENT) 110 mcg/Actuation inhaler Inhale 1-2 puffs into the lungs daily. 02/21/2011 10/07/2023 sulfaSALAzine (AZULFIDINE) 500 mg tablet Take 1,000 mg by mouth 2 times daily. 02/21/2011 07/23/2021 vitamin E 400 unit capsule 800UNIT, PO, Once daily 10/15/2010 02/07/2021 documented as of this encounter H&P Notes * Dajuan Rachel MD - 12/19/2020 12:33 PM EDT Gastroenterology and Hepatology Pre-Procedure History and Physical Exam Procedure: Colonoscopy: Indication: UC surveillance and restaging Patient Active Problem List Diagnosis Code ??? 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 Post-operative state Z98.890 ??? Primary osteoarthritis of right hip M16.11 ??? High risk medication use Z79.899 ??? Inflammatory arthropathy M19.90 ??? Morning joint stiffness M25.60 ??? Osteopenia since DXA scan in 1995 (T-score -1.7 at the spine) M85.80 EXAM: HEENT: Airway examined, oropharynx clear Mallampati Score: III (soft palate, base of uvula visible) LUNGS: Clear to auscultation HEART: Regular [...] AM EDT Hospital Encounter [place] [address] Arrived 04/29/2024 9:50 AM EDT Appointment MRI at [address] Luis Alfredo Velazquez MD [facility] [place] [address] 04/29/2024 9:50 AM EDT Appointment MRI at [place] [address] Luis Alfredo Velazquez MD [facility] [place] [address] 06/07/2024 2:30 PM EDT TH Visit (TeleHealth) Gastroenterology at [place] [phone] Dajuan Rachel MD [facility] [place] [address] 07/02/2024 2:00 PM EDT Appointment Non-Invasive Cardiology Lab [place] [phone] Luis Alfredo Velazquez MD [facility] [place] [address] 07/02/2024 4:40 PM EDT Office Visit Cardiology at [place] [phone] Luis Alfredo Velazquez MD [facility] [place] [address] documented as of this encounter Procedures Procedure Name Priority Date/Time Associated Diagnosis Comments SPECIMEN TO PATHOLOGY Routine 12/19/2020 1:20 PM EDT SPECIMEN TO PATHOLOGY Routine 12/19/2020 1:20 PM EDT SPECIMEN TO PATHOLOGY Routine 12/19/2020 1:20 PM EDT SPECIMEN TO PATHOLOGY Routine 12/19/2020 1:20 PM EDT SPECIMEN TO PATHOLOGY Routine 12/19/2020 1:20 PM EDT SPECIMEN TO PATHOLOGY Routine 12/19/2020 1:20 PM EDT SPECIMEN TO PATHOLOGY Routine 12/19/2020 1:20 PM EDT SURGICAL PATHOLOGY REPORT Routine 12/19/2020 12:53 PM EDT Colonoscopy, Biopsy ([id number]) 12/19/2020 12:34 PM EDT survey UC COLONOSCOPY Routine 12/19/2020 12:03 PM EDT documented in this encounter Results * Specimen to Pathology (12/19/2020 1:20 PM EDT) AP Specimen 12/19/2020 1:20 PM EDT 12/19/2020 1:21 PM EDT Narrative [facility] - 12/19/2020 1:21 PM EDT Specimen requisition ordered. ??Separate Pathology report to follow L Jose Rachel MD PATHOLOGY/CYTOLOGY O RDERABLES [facility] [place] [address] * Specimen to Pathology (12/19/2020 1:20 PM EDT) AP Specimen 12/19/2020 1:20 PM EDT 12/19/2020 1:21 PM EDT Narrative [facility] - 12/19/2020 1:21 PM EDT Specimen requisition ordered. ??Separate Pathology report to follow L Jose Rachel MD PATHOLOGY/CYTOLOGY O IRMA Performing Organization Address City/[facility]/[place] [address] * Specimen to Pathology (12/19/2020 1:20 PM EDT) AP Specimen 12/19/2020 1:20 PM EDT 12/19/2020 1:21 PM EDT Narrative [facility] - 12/19/2020 1:21 PM EDT Specimen requisition ordered. ??Separate Pathology report to follow L Jose Rachel MD PATHOLOGY/CYTOLOGY O IRMA Performing Organization Address [facility] [place] [address] * Specimen to Pathology (12/19/2020 1:20 PM EDT) AP Specimen 12/19/2020 1:20 PM EDT 12/19/2020 1:21 PM EDT Narrative [facility] - 12/19/2020 1:21 PM EDT Specimen requisition ordered. ??Separate Pathology report to follow L Jose Rachel MD PATHOLOGY/CYTOLOGY O IRMA Performing Organization Address [facility]/[place] [address] * Specimen to Pathology (12/19/2020 1:20 PM EDT) AP Specimen 12/19/2020 1:20 PM EDT 12/19/2020 1:21 PM EDT Narrative [facility] - 12/19/2020 1:21 PM EDT Specimen requisition ordered. ??Separate Pathology report to follow L Jose Rachel MD PATHOLOGY/CYTOLOGY O IRMA Performing Organization Address City/[facility]/[place] [address] * Specimen to Pathology (12/19/2020 1:20 PM EDT) AP Specimen 12/19/2020 1:20 PM EDT 12/19/2020 1:20 PM EDT Narrative [facility] - 12/19/2020 1:20 PM EDT Specimen requisition ordered. ??Separate Pathology report to follow L Jose Rachel MD PATHOLOGY/CYTOLOGY O IRMA Performing Organization Address [facility] de Phone Number [facility] [place] [address] * Specimen to Pathology (12/19/2020 1:20 PM EDT) AP Specimen 12/19/2020 1:20 PM EDT 12/19/2020 1:20 PM EDT Narrative [facility] - 12/19/2020 1:20 PM EDT Specimen requisition ordered. ??Separate Pathology report to follow L Jose Rachel MD PATHOLOGY/CYTOLOGY O IRMA Performing Organization Address [facility] de Phone Number [facility] [place] [address] * Surgical Pathology Report (12/19/2020 12:53 PM EDT) FINAL DIAGNOSIS (AP) [id number] ? Location: 4T; EA07; A The signing pathologist has (i) examined the relevant preparation(s) for the specimen(s) and (ii) rendered or confirmed the diagnosis(es). . ?Surgical Pathology DIAGNOSIS A - Nontargeted right colon, biopsy: - ??Focal active colitis. B - Nontargeted transverse colon, biopsy: - ??Colonic mucosa, negative for diagnostic abnormality. C - Hepatic flexure, ?? polypectomy: - ??Sessile serrated polyp/adenoma.. D - Margins, ??polypectomy ??hepatic flexure, ??biopsy: - Patchy ??mildly active chronic colitis, negative for dysplasia. E - Targeted proximal transverse colon, biopsy: - ??Mildly active chronic colitis, negative for dysplasia, present in one of the mucosal fragments ??(see Note). Note: ??Multiple deeper levels examined. Immunostaining for p53 was evaluated for final diagnosis. F - Nontargeted descending colon, biopsy: - ??Colonic mucosa with mild architectural disarray, negative for dysplasia. G - Nontargeted sigmoid and rectum, biopsy: - ??Severely active chronic colitis, negative for dysplasia. CR-PX Electronically signed by: ?Iker Jansen MD Verified: ??12/26/2020 15:38 ??Pathologist Performed at: ??-[facility] [place], [place], [place] ADDITIONAL STUDIES Immunohistochemistry Studies: Formalin-fixed, paraffin-embedded tissue sections are studied using the polymer technique with appropriate positive and negative controls. ?These IHC studies provide the pathologist with adjunctive diagnostic information. Antibody specificity has been verified by testing antibodies on a series of in-house tissues with known immunohistochemical performance characteristics. The clinical interpretation of any antibody positive staining or its absence is evaluated within the context of clinical presentation, morphology, histopathological criteria and other diagnostic tests. Block ? Antibody ?Result (Positive/Negative) E1 ? P53 ?see note SPECIMEN(S) SUBMITTED A - nontargeted right [...] Soft, brown-pink tissues. Sections/Processing: Submitted en toto ??in 3 cassettes labeled A1-A3. B - Labeled/Fixative: Nontargeted transverse colon, formalin. Quantity/Size: Multiple, 0.2-0.4 cm. Tissue Description: Soft, brown-pink tissues. Sections/Processing: Submitted en toto ??in 3 cassettes labeled B1-B3. C - Labeled/Fixative: Hepatic flexure polyp 7 mm, formalin. Quantity/Size: Single, 1.5 x 0.5 x 0.1 cm. Tissue Description: Soft, brown-pink tissue. Sections/Processing: Inked, bisected and entirely submitted in 1 cassette labeled C1. D - Labeled/Fixative: Margins polypectomy hepatic flexure, formalin. Quantity/Size: Three, 0.2-0.3 cm. Tissue Description: Soft, brown-pink tissues. Sections/Processing: Submitted en toto ??in 1 cassette labeled D1. E - Labeled/Fixative: Targeted BX proximal transverse colon, formalin. Quantity/Size: Five, 0.1-0.3 cm. Tissue Description: Soft, brown-pink tissues. Sections/Processing: Submitted en toto ??in 1 cassette labeled E1. F - Labeled/Fixative: Nontargeted descending colon, formalin. Quantity/Size: Multiple, 0.1-0.4 cm. Tissue Description: Soft, brown-pink tissues. Sections/Processing: Submitted en toto ??in 3 cassettes labeled F1-F3. G - Labeled/Fixative: Nontargeted sigmoid and rectum, formalin. Quantity/Size: Multiple, 0.2-0.4 cm. Tissue Description: Soft, brown-pink tissues. Sections/Processing: Submitted en toto ??in 2 cassettes labeled G1-G2. ??elisa 12/26/2020 3:38 PM EDT [facility] 12/19/2020 12:5 3 PM EDT L Jose Rachel MD PATHOLOGY/CYTOLOGY O RDERABLES [facility] [place] [address] * COLONOSCOPY (12/19/2020 12:03 PM EDT) COLONOSCOPY [facility] Endoscopy Procedure Date: 12/19/2020 12:03 PM ? Patient Name: Kim Funes ? Date of : 1960 ? Age: 60 ? Order #: [id number] ? Instrument Name: [id number] ? Procedure: ? Colonoscopy Patient Profile: ? This is a 60 year old female. This ? patient has ulcerative pancolitis, is ? taking adalimumab and sulfasalazine ? and is experiencing mild symptoms. Providers: ? Freddy Rachel MD, Sandoval Helton, ? Codi MA Referring MD: ? Medicines: ? Midazolam mg IV, Fentanyl micrograms ? IV Complications: ? No immediate complications. Procedure: ? Pre-Anesthesia Assessment: ? - Prior to the procedure, a History ? and Physical was performed, and ? patient medications and allergies ? were reviewed. The patient is ? competent. The risks and benefits of ? the procedure and the sedation ? options and risks were discussed with ? the patient. All questions were ? answered and informed consent was ? obtained. Patient identification and ? proposed procedure were verified by ? the physician in the pre-procedure ? area in the endoscopy suite. Mental ? Status Examination: alert and ? oriented. Airway Examination: normal ? oropharyngeal airway and neck ? mobility. Respiratory Examination: ? clear to auscultation. CV ? Examination: normal. ASA Grade ? Assessment: II - A patient with mild ? systemic disease. After reviewing the ? risks and benefits, the patient was ? deemed in satisfactory condition to ? undergo the procedure. The anesthesia ? plan was to use moderate sedation / ? analgesia (conscious sedation). ? Immediately prior to administration ? of medications, the patient was ? re-assessed for adequacy to receive ? sedatives. The heart rate, ? respiratory rate, oxygen saturations, ? blood pressure, adequacy of pulmonary ? ventilation, and response to care ? were monitored throughout the ? procedure. The physical status of the ? patient was re-assessed after the ? procedure. ? The procedure, indications, benefits, ? risks and alternatives were explained ? to the patient. Specifically ? discussed were potential ? complications including, but not ? limited to, bleeding, perforation, ? infection, missing a cancer, and ? adverse medication reactions. The ? patient was placed in the left ? lateral decubitus position, and a ? digital rectal exam was performed. ? The Colonoscope was inserted in the ? anus and under direct visualization, ? advanced to 10 cm into the ileum. ? Careful inspection was made as the ? colonoscope was withdrawn. The ? colonoscopy was performed without ? difficulty. The patient tolerated the ? procedure well. The quality of the ? bowel preparation was evaluated using ? the BBPS (Velpen Bowel Preparation ? Scale) with scores of: Right Colon = ? 2 (minor amount of residual staining, ? small fragments of stool and/or ? opaque liquid, but mucosa seen well), ? Transverse Colon = 2 (minor amount of ? residual staining, small fragments of ? stool and/or opaque liquid, but ? mucosa seen well) and Left Colon = 2 ? (minor amount of residual staining, ? small fragments of stool and/or ? opaque liquid, but mucosa seen well). ? The total BBPS score equals 6. The ? quality of the bowel preparation was ? good. Scope withdrawal time was 30 ? minutes. ? Findings: ? The terminal ileum appeared normal. ? There was circumferential, confluent active ? inflammation throughout the entire colon in differing ? degrees of severity. From the anorectal junction to ? about 20 cm within the sigmoid colon, there were ? large patches of ulceration, some of which were ? circumferential, along with erythema, polypoid areas, ? granularity to the point of appearing serrated in ? some more focal patches, touch friability, and lack ? of discernable vascularity. From about 20-30 cm, the ? ulcerations were more linear with less severe ? granularity. The entire left colon to about 55 cm, ? the colon was tubular and erythematous with ? diminished vascularity. The transverse colon was ? least involved with mildly blunted vascular pattern ? and mild erythema. The right colon was diffusely and ? circumferentially erythematous with mild granularity ? and poorly defined vascularity. Eight biopsies were ? obtained with cold forceps for surveillance from each ? of four segments of the colon (right colon, ? transverse, descending and rectosigmoid colon). ? A 7 mm polyp was found in the hepatic flexure. The ? polyp was flat with fairly well-defined margins ? though the surrounding adjacent mucosa was moderately ? granular. The polyp was removed with a cold snare. ? Resection and retrieval were complete. Biopsies were ? taken with a cold forceps for histology from the ? margins of the polypectomy site. ? Targeted biopsies were taken from a fold in the ? proximal transverse colon where there was an ~2 cm ? patch of granular mucosa with a villiform-type pit ? pattern and poorly defined margins. ? External hemorrhoids were found. The hemorrhoids were ? medium-sized. ? Moderate Sedation: ? I was present during the intraservice time as ? documented by the sedation RN. Impression: ?- Extensive ulcerative colitis with ? severe involvement of the left colon ? and [id number] involvement of ? the transverse and right colon. This ? is worse compared to last exam. Eight ? biopsies were obtained each from the ? right colon, transverse, descending ? and rectosigmoid colon. ? - One 7 mm polyp at the hepatic ? flexure, removed with a cold snare. ? Resected and retrieved. Margins ? biopsied. ? - Targeted biopsies taken from the ? proximal transverse colon. ? - External hemorrhoids. ? - The examined portion of the ileum ? was normal. Recommendation: ?- Await pathology results. ? - Follow-up in IBD Clinic to discuss ? changing medications. Consider ? ustekinumab instead of Humira. ? Attending Participation: ? I personally performed the entire procedure. ? LBrandon Rachel MD 12/19/2020 1:59:08 PM Number of Addenda: 0 Note Initiated On: 12/19/2020 12:03 PM [employer] 12/19/2020 12:0 3 PM EDT Unknown GENERAL SURGICAL ORD ERABLES [employer] documented in this encounter Visit Diagnoses Not on filedocumented in this encounter Administered Medications Inactive Administered Medications - up to 3 most recent administrations Medication Order MAR Action Action Date Dose Rate Site lactated ringers infusion 100 mL/hr, Intravenous, CONTINUOUS, Starting on Fri12/19/20 at 1230, Until Fri12/19/20 at 1342, Endoscopy (Day of Procedure) New Bag 12/19/2020 12:24 PM EDT 100 mL/hr 100 mL/hr documented in this encounter Active and Recently Administered Medications Times are shown in EDT. Continuous Medication Order 12/17/2020 12/18/2020 12/19/2020 lactated ringers infusion (CANCELED) 100 mL/hr, Intravenous, CONTINUOUS, Starting on Fri12/19/20 at 1230, Until Fri12/19/20 at 1342, Endoscopy (Day of Procedure) 1224 (New Bag - Prov ider: Oksana Mendez RN) PRN Medication Order 12/17/2020 12/18/2020 12/19/2020 fentaNYL (pf) (50 mcg/mL) multi-dose injection (CANCELED) ONCE PRN, Starting on e 12/19/20 at 1239, Until 12/19/20 at 1623, Intra-Operative (Intra-Procedure), Routine 1239 (Given - Provid er: Sandoval Helton RN)1242 (Given - Provider: Sandoval Helton RN)1251 (Given - Provider: Sandoval Helton RN) midazolam (pf) (Versed) (1 mg/mL) multi-dose injection (CANCELED) ONCE PRN, Starting on Fri12/19/20 at 1239, Until Fri12/19/20 at 1623, Intra-Operative (Intra-Procedure), Routine 1239 (Given - Provid er: Sandvoal Helton RN)1242 (Given - Provider: Sandoval Helton, RN) documented in this encounter Care Teams And Taxi Instructor Bus Trolley Relationship Specialty Start Date End Date Marcio Devlin DO [address] [place] [address] PCP - General Family Medicine 11/11/17 documented as of this encounter
--- OUTSIDE RECORDS SUMMARY | 2024-04-08 02:30 | XMS_ITS | Encounter Summary ---
Author Organization [facility] [place] [address] Care Team Providers Care Shackler Name Role Phone Marcio Devlin DO Primary Care Provider [phone] Encounter Details Date Type Department Care Team (Late st Contact Info) Description 04/27/2020 Tele[place] [phone] Radha Enamorado, [facility] Social History Tobacco Use Types Packs/Day Years Used Date Smoking Tobacco: Never Smokeless Tobacco: Never Alcohol Use Standard Drinks/Week Comments Yes 0 (1 standard drink = 0.6 oz pur e alcohol) very rarely Sex and Gender Information Value Date Recorded Sex Assigned at Female 07/21/2021 4:56 PM EDT Gender Identity Female 07/21/2021 4:56 PM EDT Sexual Orientation Straight 07/21/2021 4: 56 PM EDT documented as of this encounter Miscellaneous Notes * Telephone Encounter - Radha Enamorado, [facility] - 04/27/2020 1:59 PM EDT [employer] Pre-Telemedicine Phone Note [] Patient not reached [x] Patient reached and the following information was reviewed/obtained per protocol: [x] Confirmed patient name and date of [x] Confirmed telemedicine maria c (Vidyo and Virtual Visit) is downloaded and functioning [x] Confirmed location of patient - TeleVisit is taking place in [x] [place] [] [place] [] If not on [facility], working on signing up for [facility] [x] Confirmed has completed any pre-visit questionnaires [] If has not received required pre-visit questionnaires, send via [facility] [x] Reviewed patient medications ??? adalimumab 40 mg/0.4 mL Pen Injector Kit ??? fexofenadine (DARRYN) 180 mg Tablet ??? PROAIR HFA 90 mcg/actuation HFA Aerosol Inhaler ??? metoprolol succinate (TOPROL-XL) 100 mg Tablet Sustained Release 24 hr ??? topiramate 50 mg capsule,sprinkle,ER 24hr ??? aspirin 81 mg Tablet, Delayed Release (E.C.) ??? SUMAtriptan (IMITREX) 20 mg/actuation [place], Non-Aerosol ??? ferrous sulfate (IRON) 325 mg (65 mg iron) Tablet ??? metFORMIN (GLUCOPHAGE) 500 mg Tablet ??? hydrochlorothiazide (HYDRODIURIL) 12.5 mg Tablet ??? simvastatin (ZOCOR) 10 mg Tablet ??? losartan (COZAAR) 50 mg Tablet ??? Calcium Carbonate-Vitamin D2 600-200 mg-unit Tab ??? fluticasone (FLONASE) 50 mcg/Actuation nasal spray ??? fluticasone (FLOVENT) 110 mcg/Actuation inhaler ??? magnesium oxide (MAG-OX) 400 mg tablet ??? omeprazole (PRILOSEC) 40 mg capsule ??? sulfaSALAzine (AZULFIDINE) 500 mg tablet ??? multivitamin (THERAGRAN) tablet ??? folic acid (FOLVITE) 1 mg tablet ??? ascorbic acid (VITAMIN C) 1,000 mg tablet ??? vitamin E 400 unit capsule [x] Documented self-reported vitals: [x] Weight: 180lbs [x] Height 5'6 [] pulse recorded: [] Other information or concerns documented in this encounter Plan of Treatment Upcoming Encounters Date Type Department Care Team (Late st Contact Info) Description 04/19/2024 10:00 AM EDT Hospital Encounter Non-Invasive [place] [address] Arrived 04/29/2024 9:50 AM EDT Appointment MRI at [place] [address] Luis Alfredo Velazquez MD [facility] [place] [address] 04/29/2024 9:50 AM EDT Appointment MRI at [place] [address] Luis Alfredo Velazquez MD [facility] [place] [address] 06/07/2024 2:30 PM EDT TH Visit (TeleHealth) Gastroenterology at [place] [address] Dajuan Rachel MD [facility] [place] [address] 07/02/2024 2:00 PM EDT Appointment Non-Invasive Cardiology Lab [place] [phone] Luis Alfredo Velazquez MD [facility] [place] [address] 07/02/2024 4:40 PM EDT Office Visit Cardiology at [address] [phone] Luis Alfredo Velazquez MD [facility] [place] [address] documented as of this encounter Visit Diagnoses Not on filedocumented in this encounter Care Teams Shackler Relationship Specialty Start Date End Date Marcio Devlin DO [address] [place] [id number] PCP - General Family Medicine 11/11/17 documented as of this encounter
--- OUTSIDE RECORDS SUMMARY | 2024-04-08 02:30 | XMS_ITS | Encounter Summary ---
Author Organization [facility] [place] [address] Care Team Providers Care Twister Doffer Name Role Phone Marcio Devlin DO Primary Care Provider [phone] Reason for Visit * Reason Comments Specialty Pharmacy Review adalimumab 40 mg/0.4 mL Encounter Details Date Type Department Care Team (Late st Contact Info) Description 08/07/2020 Specialty [place] [phone] Herminio Diehl Social History Tobacco Use Types Packs/Day Years [...] as of this encounter Progress Notes * Herminio Diehl - 08/07/2020 11:59 PM EST The - Specialty Pharmacy has completed a benefits investigation for Kim Graff Shantel to review their eligibility to fill at [facility]. Per patient's medication list they are prescribed adalimumab 40 mg/0.4 mL Pen Injector Kit and the medication is not able to be filled at the [facility]. documented in this encounter Plan of Treatment Upcoming Encounters Date Type Department Care Team (Late st Contact Info) Description 04/19/2024 10:00 AM EDT Hospital Encounter Non-Invasive Cardiology Lab [place] [phone] Arrived 04/29/2024 9:50 AM EDT Appointment MRI at [address] Luis Alfredo Velazquez MD [facility] [place] [address] 04/29/2024 9:50 AM EDT Appointment MRI at [place] [address] Luis Alfredo Velazquez MD [facility] [place] [address] 06/07/2024 2:30 PM EDT TH Visit (TeleHealth) [place] [address] Dajuan Rachel MD [facility] [place] [address] 07/02/2024 2:00 PM EDT Appointment Non-Invasive Cardiology Lab [place] [phone] Luis Alfredo Velazquez MD [facility] [place] [address] 07/02/2024 4:40 PM EDT Office Visit Cardiology at [place] [phone] Luis Alfredo Velazquez MD [facility] [place] [address] documented as of this encounter Visit Diagnoses Not on filedocumented in this encounter Care Teams Twister Doffer Relationship Specialty Start Date End Date Marcio Devlin DO [address] [place] [address] PCP - General Family Medicine 11/11/17 documented as of this encounter
--- OUTSIDE RECORDS SUMMARY | 2024-04-08 02:30 | XMS_ITS | Encounter Summary ---
Author Organization [facility] [place] [address] Care Team Providers Care Shipping Packer Name Role Phone Marcio Devlin DO Primary Care Provider [phone] Reason for Referral * Consultation (Routine) - Closed Specialty Diagnoses / Procedures Referred By Contac t Referred To Contact Endocrinology Diagnoses Ulcerative colitis without complications, unspecified location Osteopenia, unspecified location Ulcerative colitis without complications, unspecified location Osteopenia, unspecified location Gabe Fong MD [facility] [place] [address] [facility]ocr[facility]ology [address] [place] [phone] Referral ID Status Reason Start Date Expiration Date V isits Requested Visits Authorized [id number] Closed Consult, Test & Treat 04/06/2020 04/06/2021 1 1 Reason for Visit * Reason Comments Follow-up Encounter Details Date Type Department Care Team (Late st Contact Info) Description 04/06/2020 10:00 AM EDT Office [place] [address] Gabe Fong MD [facility] [place] [address] Inflammatory arthropathy; Ulcerative colitis without complications, unspecified location; Medication monitoring encounter; High risk medication use; Osteopenia, unspecified location; 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 Social History Tobacco Use Types [...] Sign [place] Time Taken Comments Blood Pressure 123/67 04/06/2020 10:02 AM EDT Pulse 77 04/06/2020 10:02 AM EDT Temperature - - Respiratory Rate 16 04/06/2020 10:02 AM EDT Oxygen Saturation 100% 04/06/2020 10:02 AM EDT Inhaled Oxygen Concentration - - Weight 82.1 kg (181 lb) 04/06/2020 10:02 AM EDT Height 167.6 cm (5' 6) 04/06/2020 10:02 AM EDT Body Mass Index 29.21 04/06/2020 10:02 AM EDT documented in this encounter Progress Notes * Gabe Fong MD - 04/06/2020 10:00 AM EDT Rheumatology Follow-up Note PCP: Marcio Devlin DO, Rheumatological History: 1. UC associated Ankylosing Spondylitis -Dx back in around [address] Mann and saw Dr. Reynoso for follow up. -Xray of the Lumbar spine : Ankylotic fusion of both SI joints Presenting Sx: -Initial sx of low back/SI joint pains -No peripheral joint involvement -H/o of iritis x 3 times. No recent episodes reported -Hx of erythema nodosum associated with UC MEDS: 1) Humira q1 weeks 2) SSZ (both on since beginning of 2010-tolerating well without ADRs) -Controlling sx well--sx have been quiescent and stable for >1 year now on her current medications -options of MTX/leflunomide may be limited by underlying Hx of MÉNDEZ. ? #MÉNDEZ: -S/P liver bx in 03/2010 -LFTS mildly elevated and stable. #S/P left hip replacement back in 2005 Interval History: Kim Funes is a 59 y.o. female PMHx of MÉNDEZ and UC with presenting for follow up who hasbeen maintained on Humira and Sulfasalazine since beginning of 2010 and has been doing overall verywell since with no ADRs reported or known from current medication regimen. Scine increasing her humira interval both ehr joint pain and GI symptoms have imporevd . She saw GI on 03/27 has pedning labs that were to be sent over. No swelling, redness or wamrth Am stiffness < 15minutes No joint swelling, rednes or warmth or pain -She denies any uveitis sx or new or worsening IBD sx, low back sx, new rashes -She had a DEXA scan in 2015 that was revewied with her that showed osteopenia. Remainder Ros wnl Patient's medications, allergies, past medical, surgical, social and family histories were reviewedand updated as appropriate. Past Medical History: Diagnosis Date ??? Ankylosing spondylitis 02/21/2011 ??? Hepatitis ??? Hypertension ??? Mild asthma 02/24/2018 ??? Type 2 diabetes mellitus without complication, without long-term current use of insulin 02/24/2018 Patient Active Problem List Diagnosis Date Noted ??? High risk medication use 06/01/2019 ??? Inflammatory arthropathy 06/01/2019 ??? Morning joint stiffness 06/01/2019 ??? Primary osteoarthritis of right hip 02/23/2019 ??? Post-operative state 04/21/2018 ??? Prolapse of female pelvic organs 03/10/2018 [...] 02/21/2011 ??? Ulcerative colitis ??? DIFFICULT AIRWAY Past Surgical History: Procedure Laterality Date ??? [...] WITH BX performed by YAQUELIN ESTRADA at [facility] ENDOSCOPY ??? PRO COLONOSCOPY, BIOPSY N/A 03/04/2017 COLONOSCOPY FLEXIBLE, WITH BX (WRVU 3.66) performed by Raúl Austin MD at [facility] ENDOSCOPY ??? PRO COLONOSCOPY, BIOPSY N/A 11/09/2019 COLONOSCOPY FLEXIBLE, WITH BX (WRVU 3.66) performed by Froilan aShni MD at [facility] ENDOSCOPY ??? PRO COLONOSCOPY, DIAGNOSTIC N/A 11/09/2019 COLONOSCOPY, DIAGNOSTIC performed by Froilan Sahni MD at [facility] ENDOSCOPY ??? PRO COLONOSCOPY, REMV LESN, SNARE 01/02/2011 COLONOSCOPY, POLYPECTOMY, REMOVAL LESION BY SNARE performed by YAQUELIN ESTRADA at [facility] ENDOSCOPY ??? PRO COLONOSCOPY, REMV LESN, SNARE N/A 03/04/2017 COLONOSCOPY, POLYPECTOMY, REMOVAL LESION BY SNARE (WRVU 4.67) performed by Raúl Austin MD at [facility] ENDOSCOPY ??? PRO COMBINED ANT/POST COLPORRHAPHY N/A 03/10/2018 COLPORRHAPHY ANTERIOR-POSTERIOR; INC CYSTOURETHROSCOPY (WRVU 14.44) performed by Liang Fong MD at [facility] MAIN OR ??? PRO REVAGINAL PROLAPSE, UTEROSACRAL N/A 03/10/2018 COLPOPEXY, VAGINAL, INTRAPERITONEAL APPROACH (WRVU 11.66) performed [facility] ??? PRO SLING OPER STRES INCONTINENCE N/A 03/10/2018 URETHRAL SUSPENSION, SLING\FASCIA OR SYNTHETIC (WRVU 12.13) performed by Liang Fong MD at [facility] MAIN OR ??? PRO VAG HYST, RMV TUBE/OVARY N/A 03/10/2018 HYSTERECTOMY, VAGINAL, REMOVAL TUBE(S) & OR OVARY(S) ([facility] performed by Liang Fong MD at [facility] MAIN OR ??? SALPINGECTOMY ??? XR FLUORO INJECTION DRAINAGE JOINT LG RIGHT Right 03/09/2019 XR Fluoro Guided Joint Injection Large Right 03/09/2019 [facility] RAD XRAY Family History Problem Relation Age of Onset ??? Hypertension Mother ??? Heart Disease Mother ??? Diabetes Mother ??? Heart Disease Father ??? Cancer Father Lung Social History Socioeconomic History ??? Marital status: Spouse name: None ??? Number of children: None ??? Years of education: None ??? Highest education level: None Occupational History ??? None Social Needs ??? Financial resource strain: None ??? Food insecurity Worry: None Inability: None ??? Transportation needs Medical: None Non-medical: None Tobacco Use ??? Smoking status: Never Smoker ??? Smokeless tobacco: Never Used Substance and Sexual Activity ??? Alcohol use: Yes Comment: very rarely ??? Drug use: No ??? Sexual activity: Not Currently Lifestyle ??? Physical activity Days per week: None Minutes per session: None ??? Stress: None Relationships ??? Social connections Talks on phone: None Gets together: None Attends jew service: None Active member of club or organization: None Attends meetings of clubs or organizations: None Relationship status: None ??? Intimate partner violence Fear of current or ex partner: None Emotionally abused: None Physically abused: None Forced sexual activity: None Other Topics Concern ??? None Social History Narrative ??? None Current Outpatient Medications Medication Sig Dispense Refill ??? fexofenadine (DARRYN) 180 mg Tablet Take 180 mg by mouth daily. ??? adalimumab 40 mg/0.4 mL Pen Injector Kit Inject 40 mg subcutaneously every 7 days. 6 kit 3 ??? PROAIR HFA 90 mcg/actuation HFA Aerosol Inhaler as needed. ??? metoprolol succinate (TOPROL-XL) 100 mg Tablet Sustained Release 24 hr TAKE ONE TABLET BY MOUTHEVERY DAY TO CONTROL BLOOD PRESSURE UNDER 140 80 3 ??? topiramate 50 mg capsule,sprinkle,ER 24hr TAKE ONE CAPSULE BY MOUTH TWICE A DAY 3 ??? aspirin 81 mg Tablet, Delayed Release (E.C.) Take 81 mg by mouth daily. ??? SUMAtriptan (IMITREX) 20 mg/actuation [place], Non-Aerosol 1 spray as needed. ??? ferrous sulfate (IRON) 325 mg (65 mg iron) Tablet Take 325 mg by mouth daily. ??? metFORMIN (GLUCOPHAGE) 500 mg Tablet Take 500 mg by mouth 2 times daily. 3 ??? hydrochlorothiazide (HYDRODIURIL) 12.5 mg Tablet Take 12.5 mg by mouth daily. ??? simvastatin (ZOCOR) 10 mg Tablet Take 10 mg by mouth nightly. ??? losartan (COZAAR) 50 mg Tablet Take 50 mg by mouth daily. ??? Calcium Carbonate-Vitamin D2 600-200 mg-unit Tab Take 1,200 mg by mouth 2 times daily. ??? fluticasone (FLONASE) 50 mcg/Actuation nasal spray 2 sprays by Each Nare route daily. ??? fluticasone (FLOVENT) 110 mcg/Actuation inhaler Inhale 1-2 puffs into the lungs daily. ??? magnesium oxide (MAG-OX) 400 mg tablet Take 400 mg by mouth 2 times daily. ??? omeprazole (PRILOSEC) 40 mg capsule Take 40 mg by mouth daily. ??? sulfaSALAzine (AZULFIDINE) 500 mg tablet Take 1,000 mg by mouth 2 times daily. ??? multivitamin (THERAGRAN) tablet (Patient taking differently: 1 tablet daily.) ??? folic acid (FOLVITE) 1 mg tablet 1 MG = 1 Tablet(s), PO, Once daily ??? ascorbic acid (VITAMIN C) 1,000 mg tablet 1000MG, PO, Once daily ??? vitamin E 400 unit capsule 800UNIT, PO, Once daily No current facility-administered medications for this visit. Current Outpatient Medications on File Prior to Visit Medication Sig Dispense Refill ??? fexofenadine (DARRYN) 180 mg Tablet Take 180 mg by mouth daily. ??? adalimumab 40 mg/0.4 mL Pen Injector Kit Inject 40 mg subcutaneously every 7 days. 6 kit 3 ??? PROAIR HFA 90 mcg/actuation HFA Aerosol Inhaler as needed. ??? metoprolol succinate (TOPROL-XL) 100 mg Tablet Sustained Release 24 hr TAKE ONE TABLET BY MOUTHEVERY DAY TO CONTROL BLOOD PRESSURE UNDER 140 80 3 ??? topiramate 50 mg capsule,sprinkle,ER 24hr TAKE ONE CAPSULE BY MOUTH TWICE A DAY 3 ??? aspirin 81 mg Tablet, Delayed Release (E.C.) Take 81 mg by mouth daily. ??? SUMAtriptan (IMITREX) 20 mg/actuation [place], Non-Aerosol 1 spray as needed. ??? ferrous sulfate (IRON) 325 mg (65 mg iron) Tablet Take 325 mg by mouth daily. ??? metFORMIN (GLUCOPHAGE) 500 mg Tablet Take 500 mg by mouth 2 times daily. 3 ??? hydrochlorothiazide (HYDRODIURIL) 12.5 mg Tablet Take 12.5 mg by mouth daily. ??? simvastatin (ZOCOR) 10 mg Tablet Take 10 mg by mouth nightly. ??? losartan (COZAAR) 50 mg Tablet Take 50 mg by mouth daily. ??? Calcium Carbonate-Vitamin D2 600-200 mg-unit Tab Take 1,200 mg by mouth 2 times daily. ??? fluticasone (FLONASE) 50 mcg/Actuation nasal spray 2 sprays by Each Nare route daily. ??? fluticasone (FLOVENT) 110 mcg/Actuation inhaler Inhale 1-2 puffs into the lungs daily. ??? magnesium oxide (MAG-OX) 400 mg tablet Take 400 mg by mouth 2 times daily. ??? omeprazole (PRILOSEC) 40 mg capsule Take 40 mg by mouth daily. ??? sulfaSALAzine (AZULFIDINE) 500 mg tablet Take 1,000 mg by mouth 2 times daily. ??? multivitamin (THERAGRAN) tablet (Patient taking differently: 1 tablet daily.) ??? folic acid (FOLVITE) 1 mg tablet 1 MG = 1 Tablet(s), PO, Once daily ??? ascorbic acid (VITAMIN C) 1,000 mg tablet 1000MG, PO, Once daily ??? vitamin E 400 unit capsule 800UNIT, PO, Once daily ??? [DISCONTINUED] ursodiol (ACTIGALL) 300 mg capsule Take 1 capsule by mouth 3 times daily. (Patient not taking: Reported on 03/27/2020) 270 tablet 3 No current facility-administered medications on file prior to visit. Allergies Allergen Reactions ??? Ibuprofen chest pains, Patient reported ??? Celebrex [Celecoxib] Rash ??? Lodine [Etodolac] Itching ??? Amoxicillin-Pot Clavulanate Nausea And Vomiting Nausea/Vomiting, patient reported ??? Cephalexin Nausea And Vomiting Nausea/Vomiting, Patient reported ??? Doxycycline Nausea And Vomiting Nausea/Vomiting, Patient reported Physical Exam: BP 123/67 Pulse 77 Resp 16 Ht 167.6 cm (5' 6) Wt 82.1 kg (181 lb) SpO2 100% BMI 29.21 kg/m?? General: NAD HEENT: Mucous membranes are moist, no oral mucosal ulcerations Neck: full range of motion. Cardiovascular: RR, (-)murmurs, rubs, or gallops. Lungs: Clear to auscultation bilaterally. (-)R/R/W Abdomen: Soft, non tender, non distended, + bowel sounds, Neuro: Alert and oriented x3. Cranial nerves III through XII grossly intact.Strength 5/5 Skin: (-)ulcers, (-)rash Vascular: Pulses are equal in all extremities. MSK Back: Non tender over the spine and costovertebral angles bilaterally. (-)Radha Extremities Shoulders: FROM, non-tender to palpation Elbows:FROM, (-)pain, (-)nodules Wrists: FROM, no swelling, non-tender Hands: No synovitis, no MCP compression tenderness, full claw and fist Hips: FROM, (-) radha Knees: (-)effusions, non-tender ROM Ankles: FROM, non-tender, [...] CBC w/ diff: WNL CMP: WNL Imaging: DEXA Pending IMPRESSION The measurements satisfied the WHO classification for low bone mass or osteopenia. There is no significant change since 2011. Assessment: Kim Funes is a 59 y.o. female PMHx of MÉNDEZ and UC with presenting for follow up who hasbeen maintained on Humira and Sulfasalazine since beginning of 2010 and has been overall been well controlled with known or reported ADRs from medications. Dz activity seems to have imporved as has diarrhea No SE to meds Most recent Repat labs pedning. ?? PLAN: -Continue current meds: 1) Humira 40 mg q1week per GI 2) SZS 1000 mg BID -DEXA shoed worsening ostteopena refer to Endo -Continued VitD and Ca supplements as she has been doing -Advised to follow up with PCP in regards to preventative interventions such as checking for uptodate status on vaccine (ie. Shingrix she has never received she believes and pneumococcal pneumonia). -Advised to follow with PCP in regards to regular C-scope screening given her UC dx. -F/U4 months. Gabe Fong MD Orders Placed This Encounter Procedures ??? Referral to Endocrinology documented in this encounter Plan of Treatment Upcoming Encounters Date Type Department Care Team (Late st Contact Info) Description 04/19/2024 10:00 AM EDT Hospital Encounter Non-[place] [phone] Arrived 04/29/2024 9:50 AM [place] [phone] Luis Alfredo Velazquez MD [facility] [place] [address] 04/29/2024 9:50 AM [place] [phone] Luis Alfredo Velazquez MD [facility] [place] [address] 06/07/2024 2:30 PM EDT TH Visit (TeleHealth) [place] [address] Dajuan Rachel MD [facility] [place] [address] 07/02/2024 2:00 PM EDT Appointment Non-Invasive Cardiology Lab [place] [phone] Luis Alfredo Velazquez MD [facility] [place] [address] 07/02/2024 4:40 PM EDT Office Visit Cardiology at [address] [phone] Luis Alfredo Velazquez MD [facility] [place] [address] Scheduled Referrals Name Type Priority Associated Diagnoses Order Schedule Referral to Endocrinology Outpatient Referral Routine Ulcerative colitis without complications, unspecified location Osteopenia, unspecified location Ordered: 04/06/2020 documented as of this encounter Visit Diagnoses Diagnosis Inflammatory arthropathy Arthropathy, unspecified, site unspecified Ulcerative colitis without complications, unspecified location Medication monitoring encounter Encounter for therapeutic drug monitoring High risk medication use Encounter for long-term (current) use of other medications Osteopenia, unspecified location 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 documented in this encounter Care Teams Shipping Packer Relationship Specialty Start Date End Date Marcio Devlin DO [address] [place] [address] PCP - General Family Medicine 11/11/17 documented as of this encounter
--- OUTSIDE RECORDS SUMMARY | 2024-04-08 02:30 | XMS_ITS | Encounter Summary ---
Author Organization [facility] Address [facility] [place] [address] Care Team Providers Care Music Department Chair Name Role Phone Marcio Devlin DO Primary Care Provider [phone] Encounter Details Date Type Department Care Team (Latest Contact Info) Description 02/05/2021 2:00 PM EDT TH Visit (TeleHealth) Rheumatology at [facility] [place] [address] Gabe Fong MD [facility] [place] [address] Ulcerative colitis without complications, unspecified location; High risk medication use; Inflammatory arthropathy; Morning joint stiffness; 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; Medication monitoring encounter; Ankylosing spondylitis of cervical region; Primary osteoarthritis of both hips; Ankylosing spondylitis, unspecified site of spine; Osteopenia, unspecified location Social History Tobacco Use [...] Progress Notes * Gabe Fong MD - 02/05/2021 2:00 PM EDT Rheumatology Follow-Up Video Note PCP: Marcio [...] 2005 Interval History: Kim Funes is a 60 y.o. female PMHx of MÉNDEZ and UC with presenting for follow up who hasbeen maintained on Humira and Sulfasalazine since beginning of 2010 and has been doing overall verywell since with no ADRs reported or known from current medication regimen. UC has become more active lately. She recently saw gastroenterology interested in doing Stelara ustekinumab but pt is concerned that would not cover her . Her joints are relatively quiet at this time she denies any swelling redness or warmth of the joints no increased morning stiffness or new rashes. ROS: General (-)fevers, (-)chills, (-)night sweats HEENT (-)vision change, (-)tinnitus, (-)epistaxis, (-)sore throat, (-)bleeding gums, (-)oral ulcers, (-)dry eyes, (-)dry mouth, (-)dysphagia, (-)GERD, (-)photo sensitivity, (-)Hair loss, (-)vertigo CVS (-)chest pain, (-)palpitations, (-)pedal edema, (-)PND, (-)orthopnea. Pulm (-)shortness of breath, (-)MARK, (-)wheezes, (-)cough, (-)pleuritic pain GI noted above seen by GI worsening UC (-)hematuria, (-)dysuria, (-)frequency, (-)nocturia, (-)genital ulcers MS [...] were reviewedand updated as appropriate. Physical Exam: NAD NCAT, nonicteric sclera, no Malar rash Neck full range of motion No increased work of breathing AO x3 Hands well-perfused Moving shoulders elbows wrists fingers can make a fist no synovitis Able to get up out of chair from seated position Labs: Lab Results Component Value Date WBC 7.0 11/09/2019 HGB 12.9 11/09/2019 HCT 40.2 11/09/2019 PLATELET 241 11/09/2019 Labs from 08/31/2018: CBC w/ diff: WNL CMP: WNL Imaging: Ostepneia on Dexa IMPRESSION The measurements satisfied the WHO classification for low bone mass or osteopenia. There is no significant change since 2011. Assessment and plan: Kim Funes is a 60 y.o. female PMHx of MÉNDEZ and UC with presenting for follow up who hasbeen maintained on Humira and Sulfasalazine since beginning of 2010 and has been overall been well controlled with known or reported ADRs from medications. Ulcerative colitis related with ankylosing spondylitis- Dz activity low from an standpoint. Though patient has been tolerating meds well there is a shortage of sulfasalazine and now her UC ismore active Inrease activity of ulcerative colitis-I received a message from GI was seen after seeing the patient-I think her is related to her underlying ulcerative colitis-treating her ulcerative colitis will also likely result in treatment of her at this time -though Stelara is not approved for an ankylosing spondylitis-this case will likely be effective ?? She is to see endocrinology for osteopenia Advised to continue vitamin D and calcium supplementation Based on age recommended he update on Shingrix and pneumonia vaccinations as well as mammograms. And skin checks Greater then 50 minutes was spent with this patient reviewing notes as well as, & different treatment options and pros and cons to both. Unfortunately explained to the patient there is no perfectalgorithm for choosing a medication No orders of the defined types were placed in this encounter. Return in about 8 weeks (around 04/02/2021) for Telehealth. documented in this encounter Plan of Treatment Upcoming Encounters Date Type Department Care Team (Late st Contact Info) Description 04/19/2024 10:00 AM EDT Hospital Encounter Non-Invasive [place] [address] Arrived 04/29/2024 9:50 AM EDT Appointment MRI at [place] [address] Luis Alfredo Velazquez MD [facility] [place] [address] 04/29/2024 9:50 AM EDT Appointment MRI at [place] [phone] Luis Alfredo Velazquez MD [facility] [place] [address] 06/07/2024 2:30 PM EDT TH Visit (TeleHealth) Gastroenterology at [place] [phone] Dajuan Rachel MD [facility] [place] [address] 07/02/2024 2:00 PM EDT Appointment Non-Invasive [place] [address] Luis Alfredo Velazquez MD [facility] [place] [address] 07/02/2024 4:40 PM EDT Office Visit Cardiology at [address] [address] Luis Alfredo Velazquez MD [facility] [place] [address] documented as of this encounter Visit Diagnoses Diagnosis Ulcerative colitis without complications, unspecified location High risk medication use Encounter for long-term (current) use of other medications Inflammatory arthropathy Arthropathy, unspecified, site unspecified Morning joint stiffness Stiffness of joint, not elsewhere classified, unspecified site 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 Medication monitoring encounter Encounter for therapeutic drug monitoring Ankylosing spondylitis, unspecified site of spine Primary osteoarthritis of both hips Primary localized osteoarthrosis, pelvic region and thigh Osteopenia, unspecified location documented in this encounter Care Teams Music Department Chair Relationship Specialty Start Date End Date Marcio Devlin DO [address] [place] [address] PCP - General Family Medicine 11/11/17 documented as of this encounter
--- OUTSIDE RECORDS SUMMARY | 2024-04-08 02:30 | XMS_ITS | Encounter Summary ---
[place] [address] Care Team Providers Care Roll Grinder Name Role Phone Marcio Devlin DO Primary Care Provider [phone] Encounter Details Date Type Department Care Team (Late st Contact Info) Description 11/15/2019 Specialty [place] [address] Berenice Novak, [facility] Social History Tobacco Use Types [...] AM EDT Hospital Encounter Non-Invasive [place] [address] Arrived 04/29/2024 9:50 AM EDT [place] [address] Luis Alfredo Velazquez MD [facility] [place] [address] 04/29/2024 9:50 AM EDT Appointment MRI at [place] [address] Luis Alfredo Velazquez MD [facility] [place] [address] 06/07/2024 2:30 PM EDT TH Visit (TeleHealth) Gastroenterology at [place] [address] Dajuan Rachel MD [facility] [place] [address] 07/02/2024 2:00 PM EDT Appointment Non-Invasive Cardiology Lab [address] Luis Alfredo Velazquez MD [facility] [place] [address] 07/02/2024 4:40 PM EDT Office Visit Cardiology at [place] [phone] Luis Alfredo Velazquez MD [facility] [place] [address] documented as of this encounter Visit Diagnoses Not on filedocumented in this encounter Care Teams Roll Grinder Relationship Specialty Start Date End Date Marcio Devlin DO [address] [place] [address] PCP - General Family Medicine 11/11/17 documented as of this encounter
--- OUTSIDE RECORDS SUMMARY | 2024-04-08 02:30 | XMS_ITS | Encounter Summary ---
Author Organization [facility] [place] [address] Care Team Providers Care Director Medical Safety Name Role Phone Marcio Devlin DO Primary Care Provider [phone] Encounter Details Date Type Department Care Team (Late st Contact Info) Description 04/06/2020 Specialty [place]acy [place] [address] Juan Carlos Joseph Social History Tobacco Use Types Packs/Day Years [...] AM EDT Hospital Encounter Non-[place] [phone] Arrived 04/29/2024 9:50 AM ED[place] [address] Luis Alfredo Velazquez MD [facility] [place] [address] 04/29/2024 9:50 AM EDT Appointment MRI at [place] [address] Luis Alfredo Velazquez MD [facility] [place] [address] 06/07/2024 2:30 PM EDT TH Visit (TeleHealth) Gastroenterology at [address] Dajuan Rachel MD [facility] [place] [address] 07/02/2024 2:00 PM EDT Appointment Non-Invasive [place] [address] Luis Alfredo Velazquez MD [facility] [place] [address] 07/02/2024 4:40 PM EDT Office Visit Cardiology at [place] [phone] Luis Alfredo Velazquez MD [facility] [place] [address] documented as of this encounter Visit Diagnoses Not on filedocumented in this encounter Care Teams Director Medical Safety Relationship Specialty Start Date End Date Marcio Devlin DO [address] [place] [address] PCP - General Family Medicine 11/11/17 documented as of this encounter
--- OUTSIDE RECORDS SUMMARY | 2024-04-08 02:30 | XMS_ITS | Encounter Summary ---
Author Organization [facility] Address [facility] [place] [address] Care Team Providers Care Inverform Machine Operator Name Role Phone Marcio Devlin DO Primary Care Provider [phone] Encounter Details Date Type Department Care Team (Late st Contact Info) Description 12/06/2020 Orders Only [place] [phone] Dajuan Rachel MD [facility] [place] [address] Social History Tobacco Use Types Packs/Day Years [...] AM EDT Hospital Encounter Non-Invasive [place] [address] Arrived 04/29/2024 9:50 AM EDT [place] [address] Luis Alfredo Velazquez MD [facility] [place] [address] 04/29/2024 9:50 AM EDT Appointment MRI at [address] Luis Alfredo Velazquez MD [facility] [place] [address] 06/07/2024 2:30 PM EDT TH Visit (TeleHealth) Gastroenterology at [place] [phone] Dajuan Rachel MD [facility] [place] [address] 07/02/2024 2:00 PM EDT Appointment Non-Invasive Cardiology Lab [address] Luis Alfredo Velazquez MD [facility] [place] [address] 07/02/2024 4:40 PM EDT Office Visit Cardiology at [place] [phone] Luis Alfredo Velazquez MD [facility] [place] [address] documented as of this encounter Visit Diagnoses Not on filedocumented in this encounter Care Teams Inverform Machine Operator Relationship Specialty Start Date End Date Marcoi Devlin DO [address] [place] [address] PCP - General Family Medicine 11/11/17 documented as of this encounter
--- OUTSIDE RECORDS SUMMARY | 2024-04-08 02:30 | XMS_ITS | Encounter Summary ---
[place] [address] Care Team Providers Care Cable Installation Manager Name Role Phone Marcio Devlin DO Primary Care Provider [phone] Reason for Visit * Reason Comments Specialty Pharmacy Review Encounter Details Date Type Department Care Team (Late st Contact Info) Description 03/27/2020 Specialty [place] [address] Berenice Novak, [facility] Social History Tobacco Use Types Packs/Day Years [...] AM EDT Hospital Encounter Non-[place] [address] Arrived 04/29/2024 9:50 AM ED[place] [address] Luis Alfredo Velazquez MD [facility] [place] [address] 04/29/2024 9:50 AM EDT Appointment MRI at [place] [phone] Luis Alfredo Velazquez MD [facility] [place] [address] 06/07/2024 2:30 PM EDT TH Visit (TeleHealth) Gastroenterology at [place] [address] Dajuan Rachel MD [facility] [place] [address] 07/02/2024 2:00 PM EDT Appointment Non-[place] [address] Luis Alfredo Velazquez MD [facility] [place] [address] 07/02/2024 4:40 PM EDT Office Visit Cardiology at [address] [address] Luis Alfredo Velazquez MD [facility] [place] [address] documented as of this encounter Visit Diagnoses Not on filedocumented in this encounter Care Teams Cable Installation Manager Relationship Specialty Start Date End Date Marcio Devlin DO [address] [place] [address] PCP - General Family Medicine 11/11/17 documented as of this encounter
--- OUTSIDE RECORDS SUMMARY | 2024-04-08 02:30 | XMS_ITS | Encounter Summary ---
Author Organization [facility] [place] [address] Care Team Providers Care Sports Book Board Attendant Name Role Phone Marcio Devlin DO Primary Care Provider [phone] Reason for Visit * Reason Onset Date Comments Medication Refill 04/24/2020 Encounter Details Date Type Department Care Team (Late st Contact Info) Description 04/24/2020 [place]ill [place] [address] Dajuan Rachel MD [facility] [place] [address] Ulcerative pancolitis without complication Social History Tobacco [...] AM EDT Hospital Encounter Non[place] [address] Arrived 04/29/2024 9:50 AM EDT Appointment MRI at [place] [address] Luis Alfredo Velazquez MD [facility] [place] [address] 04/29/2024 9:50 AM EDT Appointment MRI at [place] [address] Luis Alfredo Velazquez MD [facility] [place] [address] 06/07/2024 2:30 PM EDT TH Visit (TeleHealth) Gastroenterology at [place] [address] Dajuan Rachel MD [facility] [place] [address] 07/02/2024 2:00 PM EDT Appointment Non-Invasive Cardiology Lab [address] Luis Alfredo Velazquez MD [facility] [place] [address] 07/02/2024 4:40 PM EDT Office Visit Cardiology at [place] [phone] Luis Alfredo Velazquez MD [facility] [place] [address] documented as of this encounter Visit Diagnoses Diagnosis Ulcerative pancolitis without complication documented in this encounter Care Teams Sports Book Board Attendant Relationship Specialty Start Date End Date Marcio Devlin DO [address] [place] [address] PCP - General Family Medicine 11/11/17 documented as of this encounter
--- OUTSIDE RECORDS SUMMARY | 2024-04-08 02:30 | XMS_ITS | Encounter Summary ---
Author Organization [facility] Address [facility] [place] [address] Care Team Providers Care Tube Making Machine Operator Name Role Phone Marcio Devlin DO Primary Care Provider [phone] Encounter Details Date Type Department Care Team (Latest Contact Info) Description 03/27/2020 9:00 AM EDT TH Visit (TeleHealth) [place] [address] [facility] [place] [address] WRIGHT (nonalcoholic steatohepatitis) Social History Tobacco Use Types Packs/Day Years [...] as of this encounter Progress Notes * Clau Cruz MD - 03/27/2020 9:00 AM EDT GASTROENTEROLOGY TELEHEALTH PROGRAM - NEW PATIENT VISIT Chief Complaint: Kim Graff Shantel is a 59 y.o. patient referred for consultation by Dr. Morrow for WRIGHT History of Present Illness: 59 y.o. 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 She was previously seen by Dr. Chan, with the last visit in 2010. She has not followed up with a liver provider since that time. No jaundice, ascites, melena, hematemesis, itching, easy bruising, or hepatic encephalopathy. She has been working on weight loss and has been able to loose 50 lbs over the last 1.5 year. She is on metformin for pre-diabetes. She had mild increase of alk phos (highest report level was 144 in 02/2006). Dr. Chan started on ursodiol in 2009. No prior liver imaging. No evidence of PSC on liver biopsy. She reports her bowels have improved since changing to weekly humira. No blood in the stool. Currently having 3-4 stools per day, formed without urgency. Problem List: 1. WRIGHT (stage 2 in 03/24) a. Labs (03/24) tb .3, ast 141, alt 144, alp 130, alb 4.2, inr 1.1, cr .97, plt 302, TRIG 258 1. CLD labs (03/24) gamma 1.78, SHAMIKA 65, pANCA (+), PR3 4.8, A1AT (M/S, 157), others (-) 2. Most recent: A. (07/26) ast 47, alt 87, chol 187, trig 181, a1c 5.7, tsh 1.32 b. US (01/22) fatty liver c. Liver biopsy (03/24) steatohepatitis, grade 2/3, stage 2/4, steatosis 3/3, + ballooning 2. Ankylosing Spondylitis, 92' 3. Ulcerative Colitis (left sided) 94'; prior colonoscopy induced microperf. (09/23) A. Last Colon (12/24) active colitis, no dysplasia 4. HTN 5. Obesity 6. GERD 7. Lipid disorder (01/23) chol 247 / ldl 139, Trig 254 8. Iron def (15%) in 03/24 9. Alpha 1 Antitrypsin Def carrier (M/S, level 157, PAS -) H/o Colon polyp (12/24) s/p Left Hip replacememt 06' s/p TL 91' ?? Preventative Health: a. HAV / HBV: (p) / (+), Twinrix vaccine: completed (02/23) Review of systems: 14-point review of systems reviewed and negative except as above. Medications: Outpatient Medications Prior to Visit Medication Sig Dispense Refill ??? adalimumab 40 mg/0.4 mL Pen Injector [...] mouth daily. ??? SUMAtriptan (IMITREX) 20 mg/actuation [place], Non-Aerosol 1 spray as needed. ??? ferrous [...] Take 50 mg by mouth daily. ??? ursodiol (ACTIGALL) 300 mg capsule Take 1 capsule by mouth 3 times daily. 270 tablet 3 ??? Calcium Carbonate-Vitamin D2 600-200 mg-unit Tab [...] unit capsule 800UNIT, PO, Once daily No facility-administered medications prior to visit. Allergies: is allergic to ibuprofen; celebrex [celecoxib]; lodine [etodolac]; amoxicillin-pot clavulanate; cephalexin; and doxycycline. Past Medical History: has a past medical history of Ankylosing spondylitis (02/21/2011), Hepatitis, Hypertension, Mild asthma (02/24/2018), and Type 2 diabetes mellitus without complication, without long-term current use of insulin (02/24/2018). Past Surgical History: has a past surgical history that includes created by interface; created by interface; created by interface; created by interface; Colonoscopy, Biopsy (09960) (01/02/2011); Colonoscopy, Remv Estela, Snare (13530) (01/02/2011); Colonoscopy, Biopsy (90431) (N/A, 03/04/2017); Colonoscopy, Remv Lesn, Snare (89828) (N/A, 03/04/2017); salpingectomy; orthopedic surgery; Vag Hyst, Rmv Tube/Ovary (82665) (N/A, 03/10/2018); Combined Ant/Post Colporrhaphy (24794) (N/A, 03/10/2018); Sling Oper Stres Incontinence (94912) (N/A, 03/10/2018); Revaginal Prolapse, Uterosacral (72670) (N/A, 03/10/2018); XR Fluoro Guided Joint Injection Large Right (Right, 03/09/2019); Colonoscopy, Diagnostic (70348) (N/A, 11/09/2019); and Colonoscopy, Biopsy (38049) (N/A, 11/09/2019). Family History: family history includes Cancer in her father; Diabetes in her mother; Heart Diseasein her father and mother; Hypertension in her mother. Social History: reports that she has never smoked. She has never used smokeless tobacco. She reports current alcohol use. She reports that she does not use drugs. No Physical Examination performed during this telemedicine visit Laboratory studies, imaging, and procedures (my review of prior records): Results for KIM PEREZ ( ) as of 03/27/2020 08:01 08/14/2010 15:52 08/19/2011 17:44 09/14/2014 10:12 03/01/2015 11:48 02/29/2016 14:42 08/14/2017 12:06 02/24/2018 15:03 08/31/2018 11:34 02/18/2019 17:18 06/01/2019 15:22 11/09/2019 13:19 Total Protein 8.3 8.4 (H) 7.9 7.8 7.9 7.8 7.7 7.6 7.9 8.4 (H) 7.9 Albumin 4.1 4.5 4.3 4.5 4.4 4.1 4.1 4.1 4.1 4.1 4.0 Total Bilirubin 0.2 0.4 0.4 0.4 0.4 0.4 0.3 0.4 0.2 0.2 0.4 Bili, Direct 0.1 0.1 0.1 0.1 0.1 <0.1 Alk Phos 135 (H) 115 (H) 117 (H) 82 78 91 91 89 96 91 82 AST 63 (H) 53 (H) 45 (H) 51 (H) 63 (H) 75 (H) 36 (H) 25 23 19 19 ALT 69 (H) 67 (H) 57 (H) 64 (H) 83 (H) 84 (H) 48 (H) 26 19 15 12 Assessment/Plan: Ms. Perez is a 59 y.o. patient with a history of biopsy-proven Wright with F2 fibrosis. As her biopsy was 10 years ago, I recommend updating her fibrosis status with FibroScan. As she has biopsy-proven Wright it is reasonable to continue on vitamin E 800 units/day. However, her liver enzymes did not seem to improve until her more recent weight loss which has resulted in normalization of her enzymes. We discussed that the fibrosis that was noted previously on biopsy could potentially be reversible with the weight loss she has accomplished. In review of her chart I do not see evidence of PSC, therefore it is not clear the indication for the ursodiol. The mild alkaline phosphatase elevation that was noted prior could be secondary to Wright, and per the patient and review of the chart no priorcholangiograms have been obtained. In addition her liver biopsy did not have features of PSC. I recommended that she hold her ursodiol and we repeat liver enzymes in 3 months. If her alkaline phosphatase increases off of ursodiol, I would move forward with a MRCP to evaluate for potential PSC. Recommendations: -CBC, BMP, hepatic function panel, INR, and FibroScan in 3 months -Hold ursodiol -Continue vitamin E 800 units daily I spent 27 minutes face to face with the patient. 27 minutes were spent on counseling and discussion as of the above during this telemedicine visit. The patient was located in [place] at the time of their visit. Clau Cruz [place] [address] documented in this encounter Plan of Treatment Upcoming Encounters Date Type Department Care Team (Late st Contact Info) Description 04/19/2024 10:00 AM EDT Hospital Encounter Non-[place] [address] Arrived 04/29/2024 9:50 AM [place] [address] Luis Alfredo Velazquez MD [facility] [place] [address] 04/29/2024 9:50 [place] [address] Luis Alfredo Velazquez MD [facility] [place] [place] [address] 06/07/2024 2:30 PM EDT TH Visit (TeleHealth) [place] [address] Dajuan Rachel MD [facility] DR [place]STR[place] [address] 07/02/2024 2:00 PM EDT Appointment Non-Invasive Cardiology Lab [place] [phone] Luis Alfredo Velazquez MD [facility] [place] [place] [address] 07/02/2024 4:40 PM EDT Office Visit Cardiology at [address] [phone] Luis Alfredo Velazquez MD [facility] [place] [place] [address] documented as of this encounter Visit Diagnoses Diagnosis WRIGHT (nonalcoholic steatohepatitis) Other chronic nonalcoholic liver disease documented in this encounter Care Teams Tube Making Machine Operator Relationship Specialty Start Date End Date Marcio Devlin DO [address] [place] [address] PCP - General Family Medicine 11/11/17 documented as of this encounter
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
--- OUTSIDE RECORDS SUMMARY | 2024-04-08 02:30 | XMS_ITS | Encounter Summary ---
Author Organization [facility] [place] [address] Care Team Providers Care Textile Machine Mechanic Name Role Phone Marcio Devlin DO Primary Care Provider [phone] Reason for Visit * Reason Onset Date Comments Reminder Appointment 03/27/2020 Encounter Details Date Type Department Care Team (Late st Contact Info) Description 03/27/2020 Telephone [place] [phone] Elisha Hall CMA GASTROENTEROLOGY DEPT Reminder Appointment [...] Telephone Encounter - Elisha Hall CMA - 03/27/2020 9:42 AM EDT Called patient to review medications and allergies for their upcoming gastroenterology Type of Appointment: Telehealth appointment. Reach Patient during MA Check: Yes Notes for the provider: Notes for the nurse: documented in this encounter Plan of Treatment Upcoming Encounters Date Type Department Care Team (Late st Contact Info) Description 04/19/2024 10:00 AM EDT Hospital Encounter Non-[place] [address] Arrived 04/29/2024 9:50 AM EDT Appointment MRI at [place] [address] Luis Alfredo Velazquez MD [facility] [place] [address] 04/29/2024 9:50 AM EDT Appointment MRI at [place] [address] Luis Alfredo Velazquez MD [facility] [place] [address] 06/07/2024 2:30 PM EDT TH Visit (TeleHealth) Gastroenterology at [place] [address] Dajuan Rachel MD [facility] GASTROENTEROLOG[place] [address] 07/02/2024 2:00 PM EDT Appointment Non-Invasive Cardiology Lab [address] Luis Alfredo Velazquez MD [facility] [place] [address] 07/02/2024 4:40 PM EDT Office [place] [address] Luis Alfredo Velazquez MD [facility] [place] [address] documented as of this encounter Visit Diagnoses Not on filedocumented in this encounter Care Teams Textile Machine Mechanic Relationship Specialty Start Date End Date Marcio Devlin DO [address] [place] [address] PCP - General Family Medicine 11/11/17 documented as of this encounter
--- OUTSIDE RECORDS SUMMARY | 2024-04-08 02:30 | XMS_ITS | Encounter Summary ---
Author Organization [facility] [place] [address] Care Team Providers Care Chemist Inorganic Name Role Phone Marcio Devlin DO Primary Care Provider [phone] Encounter Details Date Type Department Care Team (Late st Contact Info) Description 12/07/2020 Telephone [place] [phone] Carmelina Michel, [facility] Social History Tobacco Use Types Packs/Day Years [...] encounter Miscellaneous Notes * Telephone Encounter - Carmelina Michel - 12/07/2020 4:19 PM EDT iKm Funes [id number] Diagnosis/Indication: COLO ? 1. Have you ever had a/an Colonoscopy before? Yes: Date 11/04 If yes, did you have any problems with the procedure? No What type of sedation was used: IV Conscious Sedation ?? 2. Do you take any Blood Thinners? No ?? 3. Do you have a Pacemaker or Defibrillator device? No ?? 4. Are you a diabetic? Yes: Controlled by diet or medication? Both ?? 5. Do you have any Allergies to Eggs, Latex or Medications? Yes: SEE EDH 6. Do you take any Oral Iron Supplements (Including multi-vitamins)? Yes (Iron) ?? 7. Do you have a history of three or more abdominal surgeries? No ?? 8. Have you had a problem with sedation or anesthesia? No 9. Do you have a c-pap machine or oxygen tank? Neither 10. Do you take prescription narcotic pain medications? No ?? 11. Do you have a preference regarding the gender of your provider? No Preference ?? 12. Is there any other information you would like to give us to aid in scheduling? No ?? 13. Say to patient: You must have a responsible libertarian who will drive you to your procedure, stay [place] for the entire duration of your procedure, and drive you home from your procedure? Height: 5'6 Weight: 183 BMI: 29.5 ?? Age:59 y.o. ?? documented in this encounter Plan of Treatment Upcoming Encounters Date Type Department Care Team (Late st Contact Info) Description 04/19/2024 10:00 AM EDT Hospital Encounter Non-Invasive [place] [address] Arrived 04/29/2024 9:50 AM [place] [phone] Luis Alfredo Velazquez MD [facility] [place] [address] 04/29/2024 9:50 AM [place] [phone] Luis Alfredo Velazquez MD [facility] [place] [address] 06/07/2024 2:30 PM EDT TH Visit (TeleHealth) Gastroenterology at [place] [phone] Dajuan Rachel MD [facility] [place] [address] 07/02/2024 2:00 PM EDT Appointment Non-[place] [address] Luis Alfredo Velazquez MD [facility] [place] [address] 07/02/2024 4:40 PM EDT Office Visit Cardiology at [address] [phone] Luis Alfredo Velazquez MD [facility] [place] [address] documented as of this encounter Visit Diagnoses Not on filedocumented in this encounter Care Teams Chemist Inorganic Relationship Specialty Start Date End Date Marcio Devlin DO [address] [place] [address] PCP - General Family Medicine 11/11/17 documented as of this encounter
--- OUTSIDE RECORDS SUMMARY | 2024-04-08 02:30 | XMS_ITS | Encounter Summary ---
Author Organization [facility] Address [facility] [place] [address] Care Team Providers Care Glove Sewer Name Role Phone Marcio Devlin DO Primary Care Provider [phone] Encounter Details Date Type Department Care Team (Late st Contact Info) Description 06/29/2020 4:00 PM EDT Office Visit Gastroenterology at [facility], [place] [phone] Clau Cruz MD [facility] [place] [id number] MÉNDEZ (nonalcoholic steatohepatitis) Social History Tobacco Use Types [...] Sign Reading Time Taken Comments Blood Pressure 151/75 06/29/2020 3:37 PM EDT Pulse 61 06/29/2020 3:37 PM EDT Temperature - - Respiratory Rate - - Oxygen Saturation - - Inhaled Oxygen Concentration - - Weight 82 kg (180 lb 12.8 oz) 06/29/2020 3:37 PM EDT Height - - Body Mass Index 29.18 04/28/2020 2:04 PM EDT documented in this encounter Progress Notes * Clau Cruz MD - 06/29/2020 4:00 PM EDT Gastroenterology and Hepatology Follow Up Note Patient: Kim Funes : 1960 Provider: Clau Cruz MD Problem List: 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 She was previously seen by Dr. Chan, with the last visit in 2010. ?? Mild increase of alk phos (highest report level was 144 in 02/2006). Dr. Chan started on ursodiol [id number]. No prior liver imaging. No evidence of PSC on liver biopsy. ? Problem List: 1. MÉNDEZ (stage 2 in 03/24) ?a. Labs (03/24) tb .3, ast 141, alt 144, alp 130, alb 4.2, inr 1.1, cr .97, plt 302, TRIG 258 ?1. CLD labs (03/24) gamma 1.78, SHAMIKA 65, pANCA (+), PR3 4.8, A1AT (M/S, 157), others (-) ?2. Most recent: ?A. (07/26) ast 47, alt 87, chol 187, trig 181, a1c 5.7, tsh 1.32 ?b. US (01/22) fatty liver ?c. Liver biopsy (03/24) steatohepatitis, grade 2/3, stage 2/4, steatosis 3/3, + ballooning 2. Ankylosing Spondylitis, 92' 3. Ulcerative Colitis (left sided) 94'; prior colonoscopy induced microperf. (09/23) ?A. Last Colon (12/24) active colitis, no dysplasia 4. HTN 5. Obesity 6. GERD 7. Lipid disorder (01/23) chol 247 / ldl 139, Trig 254 8. Iron def (15%) in 03/24 9. Alpha 1 Antitrypsin Def carrier (M/S, level 157, PAS -) H/o Colon polyp (12/24) s/p Left Hip replacememt 06' s/p TL 91' ?? Preventative Health: ?a. HAV / HBV: (p) / (+), Twinrix vaccine: completed (02/23) Interval History: She was off her humira for a month and had more bowel symptoms, but these are improving back on the humira. No signs of liver decompensation. Continues to loose weight slowly and intentionally. Current Outpatient Medications Medication Sig Dispense Refill ??? fish oil-omega-3 fatty acids 1,000 mg Capsule Take 2 g by mouth daily. ??? cholecalciferol, Vitamin D3, (Vitamin D3) 1,000 unit Tablet Take by mouth daily. ??? adalimumab 40 mg/0.4 [...] mouth daily. ??? SUMAtriptan (IMITREX) 20 mg/actuation Whitney, Non-Aerosol 1 spray as needed. ??? ferrous [...] by mouth 2 times daily. ??? fluticasone (FLOVENT) 110 mcg/Actuation inhaler [...] unit capsule 800UNIT, PO, Once daily ??? fluticasone (FLONASE) 50 mcg/Actuation nasal spray 2 sprays by Each Nare route daily. No current facility-administered medications for this visit. Vitals: 06/29/20 1537 BP: 151/75 Pulse: 61 Weight: 82 kg (180 lb 12.8 oz) Body mass index is 29.18 kg/m??. Exam: Looks well Fibroscan Results: Mean kPa: 6.6 Mean IQR: 9% (goal is <30 %) Success rate: 91% (goal is >60%) Predicted fibrosis stage: F0-1 CAP: 248 Assessment and Plan: #1 MÉNDEZ Her liver enzymes have significantly improved with weight loss. Her FibroScan today was normal indicating regression of fibrosis. I recommended discontinuation of vitamin E. I recommend a annual hepatic function panel with Dr. Rachel, if liver enzymes elevate again happy to see back in hepatology clinic. Clau Cruz MD Section of Gastroenterology & Hepatology [address] [place] [phone] 17 minutes of this 30 minute visit was spent in discussion. Cc: Marcio Devlin DO documented in this encounter Procedure Notes * Clau Cruz MD - 06/29/2020 4:00 PM EDTAssociated Order(s): FIBROSCAN Procedure(s): FIBROSCAN Pre-Procedure Diagnose(s): MÉNDEZ (nonalcoholic steatohepatitis) [facility] Liver Fibrosis Assessment Report Indication: MÉNDEZ Performed by: Clau Cruz MD Procedure: Vibration Controlled Transient Elastography (VCTE) or Fibroscan [place] Protocol: Patient's identity, procedure and site were verified, confirmatory pause performed. Discussed procedure including risks and potential complications. Questions answered. Patient verbalizes understanding and wishes to proceed with Fibroscan assessment. Patient was placed in the supine position with right arm in maximum abduction to allow optimal exposure of right lateral abdomen. Patient was briefly assessed. Testing was performed in the mid-axillary location. 50Hz Shear Wave pulses were applied and the resulting Shear Wave and Propagation Speed was detected with a 3.5MHz ultrasonic signal, using the Fibroscan probe. Skin to liver capsule distance and liver parenchyma were accessed during the entire examination with the Fibroscan probe. Patient was instructed to breathe normally and abstain from sudden movements during the procedure. At least ten Sheer Waves were produced; individual measurements of each Shear Wave were calculated. Patient tolerated the procedure well with no complications. Fibroscan Results: Median kPa: 6.6 Mean IQR: 9% (goal is <30 %) Number of valid measurements: 10 (at least 10 required) Number of invalid measurements: 1 Predicted fibrosis stage: F0-1 CAP (dB/m): 248 Estimated steatosis grade: 0-1/3 % hepatocytes affected: <33% Interpretation: Based on this Fibroscan result, history, clinical examination and review of laboratory and radiological data, this patient likely has stage F0-1 liver fibrosis. documented in this encounter Plan of Treatment Upcoming Encounters Date Type Department Care Team (Late st Contact Info) Description 04/19/2024 10:00 AM EDT Hospital Encounter Non-Invasive [place] [address] Arrived 04/29/2024 9:50 AM ED[place] [address] Luis Alfredo Velazquez MD [facility] [place] [address] 04/29/2024 9:50 AM EDT Appointment MRI at [place] [address] Luis Alfredo Velazquez MD [facility] [place] [address] 06/07/2024 2:30 PM EDT TH Visit (TeleHealth) Gastroenterology at [place] [address] Dajuan Rachel MD [facility] [place] [address] 07/02/2024 2:00 PM EDT Appointment Non-Invasive Cardiology Lab [address] Luis Alfredo Velazquez MD [facility] [place] [address] 07/02/2024 4:40 PM EDT Office Visit Cardiology at [place] [phone] Luis Alfredo Velazquez MD [facility] [place] [address] documented as of this encounter Procedures Procedure Name Priority Date/Time Associated Diagnosis Comments [id number] Routine 06/29/2020 4:00 PM EDT MÉNDEZ (nonalcoholic steatohepatitis) documented in this encounter Results * [id number] (06/29/2020 4:00 PM EDT) Narrative Clau Cruz MD - 06/29/2020 4:00 PM EDT Clau Cruz MD ? 06/29/2020 ??5:12 PM [facility] Liver Fibrosis Assessment Report Indication: ?? MÉNDEZ Performed by: ??Clau Cruz MD Procedure: Vibration Controlled Transient Elastography (VCTE) or Fibroscan [place] Protocol: Patient's identity, procedure and site were verified, confirmatory pause performed. Discussed procedure including risks and potential complications. Questions answered. Patient verbalizes understanding and wishes to proceed with Fibroscan assessment. Patient was placed in the supine position with right arm in maximum abduction to allow optimal exposure of right lateral abdomen. Patient was briefly assessed. Testing was performed in the mid-axillary location. 50Hz Shear Wave pulses were applied and the resulting Shear Wave and Propagation Speed was detected with a 3.5MHz ultrasonic signal, using the Fibroscan probe. Skin to liver capsule distance and liver parenchyma were accessed during the entire examination with the Fibroscan probe. Patient was instructed to breathe normally and abstain from sudden movements during the procedure. At least ten Sheer Waves were produced; individual measurements of each Shear Wave were calculated. Patient tolerated the procedure well with no complications. Fibroscan Results: Median kPa: 6.6 Mean IQR: 9% (goal is <30 %) Number of valid measurements: 10 (at least 10 required) Number of invalid measurements: 1 Predicted fibrosis stage: F0-1 CAP (dB/m): 248 Estimated steatosis grade: 0-1/3 % hepatocytes affected: <33% Interpretation: Based on this Fibroscan result, history, clinical examination and review of laboratory and radiological data, this patient likely has stage F0-1 liver fibrosis. Clau Cruz MD PROCEDURE/MINOR SURG ICAL ORDERABLES documented in this encounter Visit Diagnoses Diagnosis MÉNDEZ (nonalcoholic steatohepatitis) Other chronic nonalcoholic liver disease documented in this encounter Care Teams Glove Sewer Relationship Specialty Start Date End Date Marcio Devlin DO [address] [place] [address] PCP - General Family Medicine 11/11/17 documented as of this encounter
--- OUTSIDE RECORDS SUMMARY | 2024-04-08 02:30 | XMS_ITS | Encounter Summary ---
Author Organization [facility] [place] [address] Care Team Providers Care Senior Publications Specialist Name Role Phone Marcio Devlin DO Primary Care Provider [phone] Reason for Visit * Reason Comments Specialty Pharmacy Review Encounter Details Date Type Department Care Team (Late st Contact Info) Description 08/28/2020 Specialty [place] [phone] Berenice Novak, [employer] SALES ENG[employer] Social History Tobacco Use Types Packs/Day Years [...] encounter Progress Notes * Berenice Novak - 08/28/2020 11:59 PM EST The [facility] has completed a benefits investigation for Kim Graff Shantel to review their eligibility to fill at [facility]. Per patient's medication list they are prescribed Humira and the medication is not able to be filled at the [facility]. documented in this encounter Plan of Treatment Upcoming Encounters Date Type Department Care Team (Late st Contact Info) Description 04/19/2024 10:00 AM EDT Hospital Encounter Non-Invasive Cardiology Lab [place] [phone] Arrived 04/29/2024 9:50 AM EDT Appointment MRI at [address] Luis Alfredo Velazquez MD [facility] [place] [address] 04/29/2024 9:50 AM EDT Appointment MRI at [address] Luis Alfredo eVlazquez MD [facility] [place] [address] 06/07/2024 2:30 PM EDT TH Visit (TeleHealth) Gastroenterology at [place] [address] Dajuan Rachel MD [facility] [place] [address] 07/02/2024 2:00 PM EDT Appointment Non-Invasive Cardiology Lab [place] [phone] Luis Alfredo Velazquez MD [facility] [place] [address] 07/02/2024 4:40 PM EDT Office Visit Cardiology at [place] [phone] Luis Alfredo Velazquez MD [facility] [place] [address] documented as of this encounter Visit Diagnoses Not on filedocumented in this encounter Care Teams Senior Publications Specialist Relationship Specialty Start Date End Date Marcio Devlin DO [address] [place] [address] PCP - General Family Medicine 11/11/17 documented as of this encounter
--- OUTSIDE RECORDS SUMMARY | 2024-04-08 02:30 | XMS_ITS | Encounter Summary ---
Author Organization [facility] [place] [address] Care Team Providers Care Mixer Operator Tablets Name Role Phone Marcio Devlin DO Primary Care Provider [phone] Encounter Details Date Type Department Care Team (Late st Contact Info) Description 08/28/2020 Telephone [place] [address] Elisha Hall CMA GASTROENTEROLOGY DEPT Social History Tobacco Use Types Packs/Day Years [...] Telephone Encounter - Elisha Hall CMA - 08/28/2020 10:55 AM EST Called patient to review medications and allergies for their upcoming gastroenterology Type of Appointment: Telehealth appointment. Reach Patient during MA Check: Yes Notes for the provider: Notes for the nurse: documented in this encounter Plan of Treatment Upcoming Encounters Date Type Department Care Team (Late st Contact Info) Description 04/19/2024 10:00 AM EDT Hospital Encounter Non-[place] [address] Arrived 04/29/2024 9:50 AM EDT Appointment MRI at [address] Luis Alfredo Velazquez MD [facility] [place] [address] 04/29/2024 9:50 AM EDT Appointment MRI at [place] [address] Luis Alfredo Velazquez MD [facility] [place] [address] 06/07/2024 2:30 PM EDT TH Visit (TeleHealth) Gastroenterology at [place] [phone] Dajuan Rachel MD [facility] [place]STR[place] [address] 07/02/2024 2:00 PM EDT Appointment Non-Invasive Cardiology Lab [place] [phone] Luis Alfredo Velazquez MD [facility] [place] [address] 07/02/2024 4:40 PM EDT Office Visit Cardiology at [place] [phone] Luis Alfredo Velazquez MD [facility] [place] [address] documented as of this encounter Visit Diagnoses Not on filedocumented in this encounter Care Teams Mixer Operator Tablets Relationship Specialty Start Date End Date Marcio Devlin DO [address] [place] [address] PCP - General Family Medicine 11/11/17 documented as of this encounter
--- OUTSIDE RECORDS SUMMARY | 2024-04-08 02:30 | XMS_ITS | Encounter Summary ---
Author Organization [facility] [place] [address] Care Team Providers Care Sensor Specialist Name Role Phone Marcio Devlin DO Primary Care Provider [phone] Reason for Visit * Consultation (Urgent) - Specialty Diagnoses / Procedures Referred By Missy escalera Referred To Contact Gastroenterology Diagnoses ibd Procedures consult Froilan Sahni MD [facility] [place] [address] [facility] [place] [address] [address] Referral ID Status Reason Start Date Expiration Date V isits Requested Visits Authorized [id number] 11/09/2019 11/08/2020 1 1 Encounter Details Date Type Department Care Team (Late st Contact Info) Description 11/15/2019 1:00 PM EST Office [place] [address] Rosemarie Morrow, SKIP [facility] DR GASTROENTER[place] [address] Ulcerative pancolitis without complication Social History Tobacco [...] Sign Reading Time Taken Comments Blood Pressure 131/62 11/15/2019 12:50 PM EST Pulse 62 11/15/2019 12:50 PM EST Temperature - - Respiratory Rate - - Oxygen Saturation - - Inhaled Oxygen Concentration - - Weight 81.3 kg (179 lb 4.8 oz) 11/15/2019 12:50 PM EST Height 167.6 cm (5' 6) 11/15/2019 12:50 PM EST Body Mass Index 28.94 11/15/2019 12:50 PM EST documented in this encounter Progress Notes * Rosemarie Morrow, MEMORIAL DESIGNER - 11/15/2019 1:00 PM EST GASTROENTEROLOGY, [facility] OUTPATIENT NOTES PCP: Marcio Devlin DO HPI: Kim Perez with h/o Ulcerative colitis, who was last seen in our IBD clinic by Dr. Rachel in 2010 and followed by our liver group was last seen by Dr Chan for her MÉNDEZ in 2010 presents to re-establish care. She was scoped recently by Dr Sahni on 11/09/19 and this showed pancolitis with severe colitis and tubular stricturing of the sigmoid colon. She was started on Humira by Dr. Eden Reynoso in late summer 2008 with subsequent elevations of her LFTs. She was seen by Dr. Yaquelin Chan, liver specialist who conducted liver biopsy which showed steatohepatitis. She has since been restarted in Humira. She is on Humira 40 mg q 2 weeks ( Friday), with ADA level of 6 ( 11/09/19). She also takes SSZ 2 tabs BID Having bm 2-4x/day, loose stool but since she started benefber after colonsopcy, stools are gettingmore firmer, more formed stool. No bleeding. No nocturnal bm. She had fecal leakage before which has been less since she started benefiber as well. Also was recommened to see PT for pelvic floor rehab which she plans to set up locally. Less urgency. No abd'l pain. No f/c No n/v Able to eat. She has lost some weight which is intentional as she has been watching what she eats and increased physical activites( e.g. walking) She sees Rheumatology for her arthritis, joint pains and . Overall she finds that the HUmira has been very helpful for her joints with less joint pains/stiffness. No eye pain/redness, no oral lesions, no skin lesions. Review of Systems Constitutional: Negative for chills and fever. HENT: Negative for sore throat. Eyes: Negative for pain and redness. Respiratory: Negative. Cardiovascular: Negative. Gastrointestinal: See hpi. Genitourinary: Negative. Musculoskeletal: See hpi. Skin: Negative. Neurological: Negative for dizziness. PROBLEM LIST ??? Ulcerative colitis ?? diagnosed in 1993 with L-sided disease ?? Treated with sulfasalazine 2 g PO qd ?? Humira started for ankylosing spondylitis ~04/2009 ?? Colonoscopy 2001 - mild L sided disease ?? Colonoscopy 09/19/08 (Dr. Shady Luz at [facility]). Areas of skip inflammation in transverse, descending, & rectosigmoid. Upon retroflexion, a rectal mucosal tear requiring subsequent admission for antibiotics. Biopsies: normal ileum, non- specific eosinophilic infiltration of the cecum, chronic inactive colitis in the descending, rectum, sigmoid, and rectum. The transverse colon revealed moderate to severe chronic, active colitis. ?? Last colonoscopy 01/03/2011 (Dr. Yaquelin Chan) - tfod-on-eojfmuic inflammation rectum to cecum withan inflammatory sigmoid polyp ?? Ankylosing spondylitis diagnosed ~1991; also history of iritis ??? DIFFICULT AIRWAY ??? MÉNDEZ (nonalcoholic steatohepatitis) ??? Lipid disorder ??? Ankylosing spondylitis ??? Hypertension ??? GERD (gastroesophageal reflux disease) Past Medical History: Diagnosis Date ??? Ankylosing spondylitis 02/21/2011 ??? Hepatitis ??? Hypertension ??? Mild asthma 02/24/2018 ??? Type 2 diabetes mellitus without complication, without long-term current use of insulin 02/24/2018 not on insulin. On metformin. Past Surgical History: Procedure Laterality Date ??? [...] COLONOSCOPY FLEXIBLE, WITH BX performed by YAQUELIN CHAN at [facility] ENDOSCOPY ??? PRO COLONOSCOPY, BIOPSY N/A 03/04/2017 COLONOSCOPY FLEXIBLE, WITH BX (WRVU 3.66) performed by Raúl Austin MD at [facility] ENDOSCOPY ??? PRO COLONOSCOPY, BIOPSY N/A 11/09/2019 COLONOSCOPY FLEXIBLE, WITH BX (WRVU 3.66) performed by Froilan Sahni MD at [facility] ENDOSCOPY ??? PRO COLONOSCOPY, DIAGNOSTIC N/A 11/09/2019 COLONOSCOPY, DIAGNOSTIC performed by Froilan Sahni MD at [facility] ENDOSCOPY ??? PRO COLONOSCOPY, REMV LESN, SNARE 01/02/2011 COLONOSCOPY, POLYPECTOMY, REMOVAL LESION BY SNARE performed by YAQUELIN CHAN at [facility] ENDOSCOPY ??? PRO COLONOSCOPY, REMV LESN, SNARE N/A 03/04/2017 COLONOSCOPY, POLYPECTOMY, REMOVAL LESION BY SNARE (WRVU 4.67) performed by Raúl Austin MD at [facility] ENDOSCOPY ??? PRO COMBINED ANT/POST COLPORRHAPHY N/A 03/10/2018 COLPORRHAPHY ANTERIOR-POSTERIOR; INC CYSTOURETHROSCOPY (WRVU 14.44) performed by Liang Fong MD at [facility] MAIN OR ??? PRO REVAGINAL PROLAPSE, UTEROSACRAL N/A 03/10/2018 COLPOPEXY, VAGINAL, INTRAPERITONEAL APPROACH (WRVU 11.66) [facility]?? PRO SLING OPER STRES INCONTINENCE N/A 03/10/2018 URETHRAL SUSPENSION, SLING\FASCIA OR SYNTHETIC (WRVU 12.13) performed by Liang Fong MD at [facility] MAIN OR ??? PRO VAG HYST, RMV TUBE/OVARY N/A 03/10/2018 HYSTERECTOMY, VAGINAL, REMOVAL TUBE(S) & OR OVARY(S) (WRVU 15.94) performed by Liang Fong MD at [facility] MAIN OR ??? SALPINGECTOMY ??? XR FLUORO INJECTION DRAINAGE JOINT LG RIGHT Right 03/09/2019 XR Fluoro Guided Joint Injection Large Right 03/09/2019 [facility] RAD XRAY Social History Socioeconomic History ??? Marital status: [...] file Gets together: Not on file Attends jain service: Not on file Active member of [...] Heart Disease Father ??? Cancer Father Lung Vitals: 11/15/19 1250 BP: 131/62 BP Location (NBP): Right arm Patient Position: Sitting BP Cuff Sizes: Adult (25-34 cm) Pulse: 62 Weight: 81.3 kg (179 lb 4.8 oz) Height: 167.6 cm (5' 6) Physical Exam Constitutional: Appearance: Normal appearance. She is not ill-appearing. HENT: Mouth/Throat: Mouth: Mucous membranes are moist. Pharynx: Oropharynx is clear. Eyes: General: No scleral icterus. Conjunctiva/sclera: Conjunctivae normal. Neck: Musculoskeletal: Neck supple. Cardiovascular: Rate and Rhythm: Normal rate and regular rhythm. Pulmonary: Effort: Pulmonary effort is normal. Breath sounds: Normal breath sounds. Abdominal: General: Bowel sounds are normal. There is no distension. Palpations: Abdomen is soft. Tenderness: There is no abdominal tenderness. Lymphadenopathy: Cervical: No cervical adenopathy. Neurological: General: No focal deficit present. Mental Status: She is alert and oriented to person, place, and time. Psychiatric: Mood and Affect: Mood normal. RECENT TESTINGS: Results for KIM PEREZ ( ) as of 11/15/2019 08:20 Ref. Range 11/09/2019 13:19 WBC Latest Ref Range: 4.0 - 9.5 x10(3)/mcL 7.0 RBC Latest Ref Range: 4.00 - 5.21 x10(6)/mcL 4.31 Hemoglobin Latest Ref Range: 11.7 - 15.5 gm/dL 12.9 Hematocrit Latest Ref Range: 35.7 - 45.8 % 40.2 MCV Latest Ref Range: 82.6 - 94.4 fL 93.3 MCH Latest Ref Range: 27.1 - 32.0 pg 29.9 MCHC Latest Ref Range: 31.7 - 35.0 gm/dL 32.1 RDWSD Latest Ref Range: 37.0 - 46.0 fL 45.3 RDWCV Latest Ref Range: 11.5 - 14.1 % 13.2 Platelets Latest Ref Range: 145 - 357 x10(3)/mcL 241 MPV Latest Ref Range: 7.6 - 12.9 fL 10.1 nRBC % Auto Latest Units: % 0.0 nRBC Abs Auto Latest Ref Range: 0.000 - 0.000 x10(3)/mcL 0.000 Neutr Abs (ANC) Latest Ref Range: 1.70 - 6.10 x10(3)/mcL 4.44 Neutrophils % Latest Units: % 63.2 Immature Gran % Latest Units: % 0.30 Lymphocytes % Latest Units: % 26.1 Monocytes % Latest Units: % 8.9 Eosinophils % Latest Units: % 1.1 Basophils % Latest Units: % 0.4 Melanie Gran Abs Latest Ref Range: 0.00 - 0.04 x10(3)/mcL 0.02 Lymphocytes Abs Latest Ref Range: 0.9 - 3.2 x10(3)/mcL 1.8 Monocyte Abs Latest Ref Range: 0.3 - 0.9 x10(3)/mcL 0.6 Eosinophils Abs Latest Ref Range: 0.0 - 0.4 x10(3)/mcL 0.1 Basophils Abs Latest Ref Range: 0.0 - 0.1 x10(3)/mcL 0.0 Sodium Latest Ref Range: 135 - 145 mmol/L 145 Potassium Latest Ref Range: 3.5 - 5.0 mmol/L 3.7 Chloride Latest Ref Range: 98 - 107 mmol/L 105 CO2 Latest Ref Range: 22 - 31 mmol/L 27 Anion Gap Latest Ref Range: 5 - 15 mmol/L 13 BUN Latest Ref Range: 8 - 18 mg/dL 8 Creatinine Latest Ref Range: 0.70 - 1.20 mg/dL 0.80 eGFR Latest Ref Range: >=60 mL/min/1.73 m?? 81 eGFR Latest Ref Range: >=60 mL/min/1.73 m?? 94 Calcium Latest Ref Range: 8.5 - 10.5 mg/dL 9.5 Glucose Lvl Latest Ref Range: 65 - 199 mg/dL 124 Total Protein Latest Ref Range: 6.1 - 8.0 gm/dL 7.9 Albumin Latest Ref Range: 3.2 - 5.2 gm/dL 4.0 Total Bilirubin Latest Ref Range: 0.2 - 1.3 mg/dL 0.4 Alk Phos Latest Ref Range: 35 - 105 unit/L 82 AST Latest Ref Range: 0 - 30 unit/L 19 ALT Latest Ref Range: 0 - 30 unit/L 12 Adalimumab Level Latest Units: mcg/mL 6.0 CRP Latest Ref Range: <=4.9 mg/L 5.4 (H) QFT Nil Latest Units: IU/mL 0.040 QFT TB Ag1-Nil Latest Units: IU/mL 0.010 QFT TB Ag2-Nil Latest Units: IU/mL 0.100 QFT Mitogen-Nil Latest Units: IU/mL >10.000 Quantiferon TB Latest Ref Range: Negative Negative Quantiferon TB Interp Unknown M. tuberculosis i... HepB Surface Ab Quant Latest Units: IU/L 61.4 HepB Surface Ab Unknown Positive HepB Surface Ag Latest Ref Range: Negative Negative Hep B Core Ab Latest Ref Range: Negative Negative ?? COLONOSCOPY COLONOSCOPY Collected: 11/09/19933 Result status: Final Resulting lab: PROVATION Value: [facility] Endoscopy Procedure Date: 11/09/2019 9:34 AM ? Patient Name: Kim Perez ? Date of : 1960 ? Age: 59 ? Order #: [id number] ? Instrument Name: [id number] ? Procedure: ? Colonoscopy Indications: ? High risk colon cancer surveillance: ?Ulcerative pancolitis of 8 (or more) ?years duration Patient Profile: ? This is a 59 year old female. This ?patient has ulcerative pancolitis, is ?taking adalimumab and is experiencing ?mild symptoms. Providers: ? Froilan Sahni MD, Avani Hayes ?Sarah, FRANCESCA, Lawrence Natarajan Referring : ?Marcio Devlin, DO Medicines: ? Midazolam 4.5 mg IV, Fentanyl 225 ?micrograms IV Complications: ? No immediate complications. Procedure: ? Pre-Anesthesia Assessment: ?- Prior to the procedure, a History ?and Physical was performed, and ?patient medications and allergies ?were reviewed. The patient's ?tolerance of previous anesthesia was ?also reviewed. The risks and benefits ?of the procedure and the sedation ?options and risks were discussed with ?the patient. All questions were ?answered, and informed consent was ?obtained. Prior Anticoagulants: The ?patient has taken no previous ?anticoagulant or antiplatelet agents. ?ASA Grade Assessment: II - A patient ?with mild systemic disease. After ?reviewing the risks and benefits, the ?patient was deemed in satisfactory ?condition to undergo the procedure. ?The procedure, indications, benefits, ?risks and alternatives were explained ?to the patient. Specifically ?discussed were potential ?complications including, but not ?limited to, bleeding, perforation, ?infection, missing a cancer, and ?adverse medication reactions. The ?patient was placed in the left ?lateral decubitus position, and a ?digital rectal exam was performed. ?The Colonoscope was inserted in the ?anus and under direct visualization, ?advanced to 15 cm into the ileum. ?Careful inspection was made as the ?colonoscope was withdrawn. The ?colonoscopy was performed without ?difficulty. The patient tolerated the ?procedure well. The quality of the ?bowel preparation was adequate and ?good. The terminal ileum, the ?appendiceal orifice and the rectum ?were photographed. Scope withdrawal ?time was 20 minutes. ? Findings: ?External hemorrhoids were found on perianal exam. ?The perianal and digital rectal examinations were ?otherwise normal. ?The terminal ileum appeared normal. ?The distal 5-6 cm of the rectum was spared and ?appeared normal. ?There was luminal narrowing with a pipe-like tubular ?rectum and sigmoid in the proximal rectum and distal ?sigmoid extending from 6m to 25cm. Inflammation was ?characterized by congestion (edema), erosions, ?granularity, linear erosions, loss of vascularity, ?mucus, confluent ulcerations, serpentine ulcerations ?and shallow ulcerations was found in a continuous and ?circumferential pattern from the proximal rectum to ?the sigmoid colon at 25cm. This was moderate to ?severe. There was scattered patchy mild inflammation ?from 25-40 cm. ?Beyond the sigmoid colon the colon appeared normal ?including the descending, transverse and ascending ?colon/cecum. Biopsies were taken with a cold forceps ?for histology in 5 jars (proximal rectum, sigmoid, ?descending, transverse and ascending). ?The terminal ileum appeared normal. ? Moderate Sedation: ?Moderate (conscious) sedation was administered by the ?endoscopy nurse and supervised by the endoscopist. ?The patient's oxygen saturation, heart rate, blood ?pressure and response to care were monitored. ?I was present during the intraservice time as ?documented by the sedation RN. Impression: ?- The examined portion of the ileum ?was normal. ?- The distal 5-6 cm of the rectum ?appear normal, no active inflammation. ?- Ulcerative colitis. Inflammation ?was found from the rectum to the ?sigmoid colon. This was moderate to ?severe from 5-25cm with luminal ?narrowing. Biopsied. ?- Descending, transverse and?ascending appear ananya. Biopsied. ?- The examined portion of the ileum ?was normal. Recommendation: ?- Await pathology results. ?- Repeat colonoscopy interval to be ?determined after review of pathology. ?- Follow-up in IBD Clinic to be ?arranged. ?- Will need Humira (Adalimumab) drug ?level for evaluation of ADA ?antibodies and likely change in ?therapy. ?- Check Labs today including CBC, ?CMP, CRP and repeat HBV screen and ?Quant gold in anticipation of therapy ?change. ? Attending Participation: ?I personally performed the entire procedure. ?I was present during the intraservice time as ?documented by the sedation RN. ? Dr. Misael Sahni Froilan Sahni MD 11/09/2019 12:03:27 PM Number of Addenda: 0 ? Surgical Pathology DIAGNOSIS A - Ascending colon, biopsy: Mildly active chronic colitis, focal. B - Transverse colon, biopsy: Mildly active chronic colitis, focal. C - Descending colon, biopsy: Mildly active chronic colitis, focal. D - Sigmoid colon, biopsy: Mildly active chronic colitis. E - Proximal rectum, biopsy: Severely active chronic colitis with ulceration. NOTE: The histologic features are suggestive of idiopathic inflammatory bowel disease. No ??dysplasia is seen. Assessment and Plan: Ms. Perez , on low-dose sulfasalazine and also Humira 40 mg q 2 weeks for her ulcerative colitis and spondylitis. She was scoped recently on 11/09/19 and this showed pancolitis with severe colitis and tubular stricturing of the sigmoid colon. Her recent ADA level was 6 ( 11/09/19) on Humira q 2 weeks. We recommend increasing her Humira to weekly dosing. In addition, could add steroids ( Budesonide) vs Immunomodulator ( 6MP/AZA) vs switching to other biologic. She prefers to try Humira weekly dosing first before adding additional or switching to other biologic . For now,?? - increase Humira to 40 mg Q week - fecal calprotectin as soon as able to submit it then will repeat in 8 weeks - Repeat labs: CBC, CMP, ESR, CRP and ADA level about 8 weeks after increased dose of Humira - Continue current dose of SSZ - Contact us if any worsening GI sxs - F/U with Dr. Rachel for UC and will have her see our liver group as well for her MÉNDEZ ?? documented in this encounter Plan of Treatment Upcoming Encounters Date Type Department Care Team (Late st Contact Info) Description 04/19/2024 10:00 AM EDT Hospital Encounter Non-[place] [address] Arrived 04/29/2024 9:50 AM EDT Appointment MRI at [place] [address] Luis Alfredo Velazquez MD [facility] [place] [address] 04/29/2024 9:50 AM EDT Appointment MRI at [address] Luis Alfredo Velazquez MD [facility] [place] [address] 06/07/2024 2:30 PM EDT TH Visit (TeleHealth) [place] [address] Dajuan Rachel MD [facility] [place] [address] 07/02/2024 2:00 PM EDT Appointment Non-Invasive Cardiology Lab [address] Luis Alfredo Velazquez MD [facility] [place] [address] 07/02/2024 4:40 PM EDT Office Visit Cardiology at [place] [phone] Luis Alfredo Velazquez MD [facility] [place] [address] documented as of this encounter Visit Diagnoses Diagnosis Ulcerative pancolitis without complication documented in this encounter Care Teams Sensor Specialist Relationship Specialty Start Date End Date Marcio Devlin DO [address] [place] [id number] PCP - General Family Medicine 11/11/17 documented as of this encounter
--- OUTSIDE RECORDS SUMMARY | 2024-04-08 02:30 | XMS_ITS | Encounter Summary ---
Author Organization [facility] Address [facility] [place] [address] Care Team Providers Care Bakery Manager Name Role Phone Marcio Devlin DO Primary Care Provider [phone] Encounter Details Date Type Department Care Team (Late st Contact Info) Description 02/13/2021 Orders Only [place] [phone] Dajuan Rachel MD [facility] [place] [address] Social History Tobacco Use Types Packs/Day Years [...] AM EDT Hospital Encounter Non-Invasive [place] [phone] Arrived 04/29/2024 9:50 AM EDT Appointment MRI at [place] [address] Luis Alfredo Velazquez MD [facility] [place] [address] 04/29/2024 9:50 AM EDT Appointment MRI at [place] [address] Luis Alfredo Velazquez MD [facility] [place] [address] 06/07/2024 2:30 PM EDT TH Visit (TeleHealth) [place] [address] Dajuan Rachel MD [facility] [place] [address] 07/02/2024 2:00 PM EDT Appointment Non-Invasive Cardiology Lab [place] [address] Luis Alfredo Velazquez MD [facility] [place] [address] 07/02/2024 4:40 PM EDT Office Visit Cardiology at [address] Luis Alfredo Velazquez MD [facility] [place] [address] documented as of this encounter Visit Diagnoses Not on filedocumented in this encounter Care Teams Bakery Manager Relationship Specialty Start Date End Date Marcio Devlin DO [address] [place] [address] PCP - General Family Medicine 11/11/17 documented as of this encounter
--- OUTSIDE RECORDS SUMMARY | 2024-04-08 02:30 | XMS_ITS | Encounter Summary ---
[place] [address] Care Team Providers Care Electrical Assembly Technician Name Role Phone Marcio Devlin DO Primary Care Provider [phone] Reason for Visit * Reason Comments Prior Authorization Humira 40 mg/0.4 ml PNKT Encounter Details Date Type Department Care Team (Late st Contact Info) Description 04/06/2020 Specialty [place] [phone] Dennis Solorzano, BRYCE Social History Tobacco Use Types Packs/Day Years [...] of this encounter Progress Notes * Dennis Solorzano CPHT - 04/06/2020 11:54 AM EDT [facility], Medication Prior Authorization Patient: Kim Graff Shantel Patient : 1960 Patient Address: [address] [place] [phone] (home) Medication Name: HUMIRA(CF) PEN 40 MG/0.4 ML SUBCUTANEOUS KIT Medication ID: [id number] Patient Location: Patient Location Comment: Subscriber Insurance: Subscriber Insurance Comment: Code Climate Fax: Physician: Renee EKENE Physician Comment: Sent Via: Telephone Truong: Ref/Case/PA#: [id number] Medication Strength Frequency Requested: Humira Pen 40 mg/0.4 ml PNKT Inject 40 mg (1 Pen) Subcutaneously Every 7 Days Qty/Day Supply: New Start: Renewal Diagnosis & ICD-10 Code: Ulcerative Pancolitis K51.00 Ankylosing Spondylitis M45.9 Patient Notified: Yes Submission Notes: Reauthorization * Dennis Solorzano CPHT - 04/06/2020 11:54 AM EDT [facility], Prior Authorization Approval Medication Name: HUMIRA(CF) PEN 40 MG/0.4 ML SUBCUTANEOUS KIT Medication ID: [id number] Fillable at [facility]: No Approval Dates: 04/10/2020 to 04/09/2021 Insurance requirements/notes: Ins Requires Patient Fill With [facility]. Other Notes: None Case/Reference #: [id number] Approval notification Received via: Telephone Copay: N/A Copay assistance: None Copay Notes: N/A Insurance mandated Pharmacy: [facility] staff will be reaching out to the patient to inform them of [facility]. If applicable, a pharmacist will speak with the patient to offer our specialty pharmacy services and to arrange delivery of their medication. documented in this encounter Plan of Treatment Upcoming Encounters Date Type Department Care Team (Late st Contact Info) Description 04/19/2024 10:00 AM EDT Hospital Encounter Non-Invasive Cardiology Lab [place] [phone] Arrived 04/29/2024 9:50 AM EDT Appointment MRI at [address] Luis Alfredo Velazquez MD [facility] [place] [address] 04/29/2024 9:50 AM EDT Appointment MRI at [place] [phone] Luis Alfredo Velazquez MD [facility] [place] [address] 06/07/2024 2:30 PM EDT TH Visit (TeleHealth) Gastroenterology at [address] Dajuan Rachel MD [facility] [place] [address] 07/02/2024 2:00 PM EDT Appointment Non-[place]vasive [place] [phone] Luis Alfredo Velazquez MD [facility] [place] [address] 07/02/2024 4:40 PM EDT Office Visit Cardiology at [address] [phone] Luis Alfredo Velazquez MD [facility] [place] [address] documented as of this encounter Visit Diagnoses Not on filedocumented in this encounter Care Teams Electrical Assembly Technician Relationship Specialty Start Date End Date Marcio Devlin DO [address] [place] [address] PCP - General Family Medicine 11/11/17 documented as of this encounter
--- OUTSIDE RECORDS SUMMARY | 2024-04-08 02:30 | XMS_ITS | Encounter Summary ---
Author Organization [facility] [place] [address] Care Team Providers Care Shirt Trimmer Name Role Phone Marcio Devlin DO Primary Care Provider [phone] Encounter Details Date Type Department Care Team (Latest Contact Info) Description 01/29/2021 4:30 PM EDT TH Visit (TeleHealth) [place] [address] Dajuan Rachel MD [facility] [place] [address] Ulcerative pancolitis without complication Social History Tobacco [...] * Patient Instructions* Dajuan Rachel MD - 01/29/2021 4:30 PM EDT 1. Prednisone 40 mg daily for one week, then 30 mg daily for one week, then 20 mg daily for one week, then 10 mg daily for one week, then stop. 2. Avoid NSAIDs - especially while on prednisone 3. Continue Humira for now 4. Stop Uceris and sulfasalazine 5. Please have labs checked at [facility]; once on new medications, will need routine labs every 2 weeks at [facility] until next follow-up visit 6. Await opinion from Dr. Fong regarding medications 7. Follow-up in person or via telehealth in 8-12 weeks documented in this encounter Progress Notes * Dajuan Rachel MD - 01/29/2021 4:30 PM EDT GASTROENTEROLOGY TELEMEDICINE PROGRAM - ESTABLISHED PATIENT VISIT Chief Complaint: Kim Funes is a 60 y.o. patient with ulcerative colitis currently on weekly Humira 40 mg subQ and SSZ 1g BID, MÉNDEZ, ankylosing spondylitis and iritis. Patient Active Problem List Diagnosis ??? Osteopenia since DXA scan in 1995 [...] 3 years. The fracture risks are increased. ? High risk medication use ??? Inflammatory arthropathy ??? Primary osteoarthritis of right hip ??? Prolapse of female pelvic organs ??? Obesity (BMI 30.0-34.9) ??? History of migraine headaches Overview Note: Markedly improved with metoprolol. ??? Mild asthma ??? Type 2 diabetes mellitus without complication, without long-term current use of insulin ??? MÉNDEZ (nonalcoholic steatohepatitis) Overview Note: ??? Lipid disorder Overview Note: ??? Ankylosing spondylitis Overview Note: Spondylitis and ulcerative colitis. ??? Hypertension Overview Note: ??? GERD (gastroesophageal reflux disease) Overview Note: ??? Ulcerative colitis Overview Note: ??? diagnosed in 1993 with L-sided disease ??? Treated with sulfasalazine 3 g PO qd ??? Colonoscopy 2001 - mild L sided disease ??? Colonoscopy 09/19/08 (Dr. Shady Luz at [facility]) for surveillance for dysplasia. Areas of skip inflammation without ulceration in the transverse colon, descending colon, and the rectosigmoid. Upon attempt at retroflexion, a rectal mucosal tear requiring subsequent admission with 10 days antibiotics. Biopsies: normal ileum, non-specific eosinophilic infiltration of the cecum, chronic inactive colitis in the descending, rectum, sigmoid, and rectum. The transverse colon revealed moderate to severe chronic, active colitis. ??? Ankylosing spondylitis diagnosed ~1991; also history of iritis ??? Escalated to weekly Humira 11/2019. ADA ([place]) from 6 q 2wk to 12.7 qwk, as well as BID SSZ ??? Colonoscopy Oct 2019: normal rectum, mod-severe inflammation and narrowing from 6-25 cm from the anus, normal remainder of colon. Path: mild active chronic colitis in ac/tc/dc/sc, severe active colitis with ulceration in proximal rectum ??? Colonoscopy December 2020 - severe involvement of L colon, qrat-[id number] involvement of transverse and R colon. Worse compared to last exam. SSA at hepatic flexure ??? DIFFICULT AIRWAY Overview Note: As described in 2006 anesthesia record in [facility]. CURRENT MEDS: Humira 40 mg subQ weekly Sulfasalazine 1g BID Interval history: Ms. Funes is here to follow-up recent colonoscopy. Has not been feeling well. Having 8-9 stools per day. She is getting up at night to move her bowels 2-3 times per night. She is wearing pads because of incontinence about once every 2 weeks. There is pain in the left side below the umbilicus. That has been ongoing since the colonoscopy - sees to be letting up and is before bowel movements. There is urgency but no bleeding. Joint pains are ok. Feels that Shannon helped the joint. Off of SSZ because of national shortage. Taking Uceris since her colonoscopy but does not think it has helped. Review of systems: 14-point review of systems reviewed and negative except as above. Medications: Outpatient Medications Prior to Visit Medication Sig Dispense Refill ? ? budesonide (Uceris) 9 mg tablet, delayed & ext.release Take 9 mg by mouth daily. 30 each 3 ??? Shannon,CF, Pen 40 mg/0.4 mL Pen Injector Kit INJECT 40 MG UNDER THE SKIN EVERY 7 DAYS 12 kit 12 ??? fish oil-omega-3 fatty acids 1,000 mg Capsule Take 2 g by mouth daily. ??? cholecalciferol, Vitamin D3, (Vitamin D3) 1,000 unit Tablet Take by mouth daily. ??? fexofenadine (DARRYN) 180 mg Tablet Take [...] mouth daily. ??? SUMAtriptan (IMITREX) 20 mg/actuation [place], Non-Aerosol 1 spray as needed. ??? ferrous [...] prior to visit. Allergies: is allergic to ibuprofen, celebrex [celecoxib], lodine [etodolac], amoxicillin-pot clavulanate, cephalexin, and doxycycline. Past Medical History: has a past medical history of Ankylosing spondylitis (02/21/2011), Hypertension, Mild asthma (02/24/2018), Type 2 diabetes mellitus without complication, without long-term current use of insulin (02/24/2018), and Ulcerative colitis. Past Surgical History: has a past surgical history that includes created by interface; created by interface; created by interface; created by interface; Colonoscopy, Biopsy (97011) (01/02/2011); Colonoscopy, Remv Lesn, Snare (74902) (01/02/2011); Colonoscopy, Biopsy ([id number]) (N/A, 03/04/2017); Colonoscopy, Remv Lesn, Snare (88348) (N/A, 03/04/2017); salpingectomy; orthopedic surgery; Vag Hyst, Rmv Tube/Ovary (49435) (N/A, 03/10/2018); Combined Ant/Post Colporrhaphy (65769) (N/A, 03/10/2018); Sling Oper Stres Incontinence (67703) (N/A, 03/10/2018); Revaginal Prolapse, Uterosacral (49278) (N/A, 03/10/2018); XR Fluoro Guided Joint Injection Large Right (Right, 03/09/2019); Colonoscopy, Diagnostic ([id number]) (N/A, 11/09/2019); Colonoscopy, Biopsy (73249) (N/A, 11/09/2019); and Colonoscopy, Biopsy ([id number]) (N/A, 12/19/2020). Family History: family history includes Cancer in [...] and procedures (my review of prior records): Labs were reviewed from March. Adalimumab level (garcía) was 12.7. CBC, ESR, CMP were unremarkable. CRP was 1.8 mg/dL. Assessment/Plan: Ms. Funes is a 60 y.o. patient with ulcerative colitis currently on weekly Humira 40 mg subQ, Uceris 9 mg daily, and was on SSZ 1g BID (currently off due to shortage). Also has MÉNDEZ, ankylosing spondylitis and iritis. Unfortunately, she has lost response to Humira. We talked about changing therapies today. In the short-term, I recommended that she stop Uceris since is not helping. Sulfasalazine was not particularly helpful for her joints, so I think she can stay off of it. She is currently off of it because of the shortage. I recommended that we start prednisone. She will take 40 mg daily and taper by 10 mg every 7 days. I asked her to call us if symptoms worsen during her taper. We may need to slow down as it gets to around 20 mg. Long-term, I think we should shift away from Humira. She will continue to take it for now. She has lost response despite adequate drug concentrations (12.7). Therefore, I favor using ustekinumab. It has a very good track record of safety in patients with IBD. Given a history of MÉNDEZ, diabetes, hypertension, this excellent safety profile will more importantly in the coming years. She asked me about the efficacy of ustekinumab and ankylosing spondylitis. I am not particularly familiar with the literature, but it seems there were 3 trials that did not meet efficacy endpoints. Other options for UC would include Entyvio, which also has a good safety track record, but would not treat . Lastly, R emicade is an option. With good adalimumab levels recently, I am somewhat skeptical that another anti-TNF would be effective, but it is worth a try. I will update Dr. Fong who sees Ms. Funes next week and await his opinion. Unless he feels that Stelara could be effective for , would consider either adding Entyvio to Humira or using Remicade. Recommendations: 1. Prednisone 40 mg daily for one week, then 30 mg daily for one week, then 20 mg daily for one week, then 10 mg daily for one week, then stop. 2. Avoid NSAIDs - especially while on prednisone 3. Continue Humira for now 4. Stop Uceris and sulfasalazine 5. Please have labs checked at [facility]; once on new medications, will need routine labs every 2 weeks at [facility] until next follow-up visit 6. Await opinion from Dr. Fong regarding medications 7. Follow-up in person or via telehealth in 8-12 weeks I spent 40 min today reviewing the chart preparing for this visit, counseling the patient [id number] on the issues outlined above, and documenting an implementing the plan. The patient was in [place] during this video telehealth visit. Freddy Rachel MD Sql Consultantdrill runner Co-Director, [facility] Section of [place]enter[place] [address] documented in this encounter Plan of Treatment Upcoming Encounters Date Type Department Care Team (Late st Contact Info) Description 04/19/2024 10:00 AM EDT Hospital Encounter Non-[place]vasive [place] [phone] Arrived 04/29/2024 9:50 AM EDT [place] [phone] Luis Alfredo Velazquez MD [facility] [place] [address] 04/29/2024 9:50 AM EDT Appointment MRI at [place] [address] Luis Alfredo Velazquez MD [facility] [place] [address] 06/07/2024 2:30 PM EDT TH Visit (TeleHealth) Gastroenterology at [address] Dajuan Rachel MD [facility] [place] [address] 07/02/2024 2:00 PM EDT Appointment [place] [address] Luis Alfredo Velazquez MD [facility] [place] [address] 07/02/2024 4:40 PM EDT Office Visit Cardiology at [place] [phone] Luis Alfredo Velazquez MD [facility] [place] [address] documented as of this encounter Visit Diagnoses Diagnosis Ulcerative pancolitis without complication documented in this encounter Care Teams Shirt Trimmer Relationship Specialty Start Date End Date Marcio Devlin DO [address] [place] [address] PCP - General Family Medicine 11/11/17 documented as of this encounter
--- OUTSIDE RECORDS SUMMARY | 2024-04-08 02:30 | XMS_ITS | Encounter Summary ---
Author Organization [facility] [place] [address] Care Team Providers Care Rn Digestive Name Role Phone Marcio Devlin DO Primary Care Provider [phone] Reason for Visit * Reason Onset Date Comments Medication Refill 02/13/2021 Encounter Details Date Type Department Care Team (Late st Contact Info) Description 02/13/2021 [place] [address] Dajuan Rachel MD [facility] [place] [address] Ulcerative pancolitis without complication Social History Tobacco [...] EDT Hospital Encounter Non-Invasive [place] [address] Arrived 04/29/2024 9:50 AM EDT Appointment MRI at [place] [address] Luis Alfredo Velazquez MD [facility] [place] [address] 04/29/2024 9:50 AM EDT Appointment MRI at [place] [address] Luis Alfredo Velazquez MD [facility] [place] [address] 06/07/2024 2:30 PM EDT TH Visit (TeleHealth) Gastroenterology at [place] [address] Dajuan Rachel MD [facility] [place] [address] 07/02/2024 2:00 PM EDT Appointment Non-Invasive Cardiology Lab [address] Luis Alfredo Velazquez MD [facility] [place] [address] 07/02/2024 4:40 PM EDT Office Visit Cardiology at [place] [phone] Luis Alfredo Velazquez MD [facility] [place] [address] documented as of this encounter Visit Diagnoses Diagnosis Ulcerative pancolitis without complication documented in this encounter Care Teams Rn Digestive Relationship Specialty Start Date End Date Marcio Devlin DO [address] [place] [address] PCP - General Family Medicine 11/11/17 documented as of this encounter
--- OUTSIDE RECORDS SUMMARY | 2024-04-08 02:30 | XMS_ITS | Encounter Summary ---
Author Organization [facility] [address] Care Team Providers Care Maturity Checker Name Role Phone Marcio Devlin DO Primary Care Provider [phone] Reason for Visit * Auth/Cert Specialty Diagnoses / Procedures Referred By Contac t Referred To Contact Diagnoses Ulcerative colitis survey UC Procedures PRO COLONOSCOPY, DIAGNOSTIC PRO COLONOSCOPY, BIOPSY PRO COLONOSCOPY, REMV LESN, SNARE COLONOSCOPY, DIAGNOSTIC Referral ID Status Reason Start Date Expiration Date Visits Re quested Visits Authorized [id number] 1 1 Encounter Details Date Type Department Care Team ([facility] st Contact Info) Description 12/19/2020 1:04 PM EDT - 12/19/2020 1:49 PM EDT Surgery [place] [address] Dajuan Rachel MD [facility] DR GASTROENTER[place] [address] COLONOSCOPY FLEXIBLE, WITH BX (WRVU 3.56) Social [...] occurs, please contact your Doctor. Please call [phone] before 8pm Mon-Fri with problems, questions or concerns. If you call after 8pm or on weekends, call the Hospital at [phone] and ask to speak to the [employer] community nutrition educator and the spray drier operator will contact that person for you. When should you call for help? Call [phone] anytime you think you may need emergency [...] any problems. Where can you learn more? [facility] View your After Visit Summary and more online at [email or web address] If you would like to provide feedback about your hospital experience, please call the Office of Patient and Family Relations at . If you have received this After Visit Summary in error, please immediately return it in person to the department, or notify the [facility] Privacy Office by calling toll free at between the hours of 8AM and 5PM to arrange for our retrieval of the documents at no cost to you. Content Version: 12.2 ?? [id number] [employer]. Care instructions adapted under license by [facility]. If you have questions about a medical condition or this instruction, always ask your healthcare professional. [employer] disclaims any warranty or liability for your [...] by mouth daily. SUMAtriptan (IMITREX) 20 mg/actuation [place], Non-Aerosol 1 spray as needed. 11/03/2017 metFORMIN [...] AM EDT Hospital Encounter Non-[place] [phone] Arrived 04/29/2024 9:50 AM EDT Appointment MRI at [address] Luis Alfredo Velazquez MD [facility] [place] [address] 04/29/2024 9:50 AM ED[place] [address] Luis Alfredo Velazquez MD [facility] [place] [address] 06/07/2024 2:30 PM EDT TH Visit (TeleHealth) Gastroenterology at [address] Dajuan Rachel MD [facility] GASTRO[place] [address] 07/02/2024 2:00 PM EDT Appointment Non-[place]vasive [place] [phone] Luis Alfredo Velazquez MD [facility] [place] [address] 07/02/2024 4:40 PM EDT Office Visit Cardiology at [address] [phone] Luis Alfredo Velazquez MD [facility] [place] [address] documented as of this encounter Procedures Procedure [...] Routine 12/19/2020 12:53 PM EDT Colonoscopy, Biopsy ([id number]) 12/19/2020 12:34 PM EDT survey UC COLONOSCOPY Routine 12/19/2020 12:03 PM EDT documented in this encounter Results * Specimen to Pathology (12/19/2020 1:20 PM EDT) AP Specimen 12/19/2020 1:20 PM EDT 12/19/2020 1:21 PM EDT Narrative [facility] - 12/19/2020 1:21 PM EDT Specimen requisition ordered. ??Separate Pathology report to follow Dajuan Rachel MD PATHOLOGY/CYTOLOGY O RDERADARLEEN [facility] [place] [address] * Specimen to Pathology (12/19/2020 1:20 PM EDT) AP Specimen 12/19/2020 1:20 PM EDT 12/19/2020 1:21 PM EDT Narrative [facility] - 12/19/2020 1:21 PM EDT Specimen requisition ordered. ??Separate Pathology report to follow L Jose Rachel MD PATHOLOGY/CYTOLOGY O IRMA Performing Organization Address City/[facility] [place] [place] [address] * Specimen to Pathology (12/19/2020 1:20 PM EDT) AP Specimen 12/19/2020 1:20 PM EDT 12/19/2020 1:21 PM EDT Narrative [facility] - 12/19/2020 1:21 PM EDT Specimen requisition ordered. ??Separate Pathology report to follow L Jose Rachel MD PATHOLOGY/CYTOLOGY O IRMA Performing Organization Address [facility] [place] [place] [address] * Specimen to Pathology (12/19/2020 1:20 PM EDT) AP Specimen 12/19/2020 1:20 PM EDT 12/19/2020 1:21 PM EDT Narrative [facility] - 12/19/2020 1:21 PM EDT Specimen requisition ordered. ??Separate Pathology report to follow L Jose Rachel MD PATHOLOGY/CYTOLOGY O IRMA Performing Organization Address [facility] [place] [place] [address] * Specimen to Pathology (12/19/2020 1:20 PM EDT) AP Specimen 12/19/2020 1:20 PM EDT 12/19/2020 1:21 PM EDT Narrative [facility] - 12/19/2020 1:21 PM EDT Specimen requisition ordered. ??Separate Pathology report to follow L Jose Rachel MD PATHOLOGY/CYTOLOGY O IRMA Performing Organization Address City/[facility]/[place] [address] * Specimen to Pathology (12/19/2020 1:20 PM EDT) AP Specimen 12/19/2020 1:20 PM EDT 12/19/2020 1:20 PM EDT Narrative [facility] - 12/19/2020 1:20 PM EDT Specimen requisition ordered. ??Separate Pathology report to follow L Jose Rachel MD PATHOLOGY/CYTOLOGY O IRMA Performing Organization Address [facility] Co de Phone Number [facility] [place] [address] * Specimen to Pathology (12/19/2020 1:20 PM EDT) AP Specimen 12/19/2020 1:20 PM EDT 12/19/2020 1:20 PM EDT Narrative [facility] - 12/19/2020 1:20 PM EDT Specimen requisition ordered. ??Separate Pathology report to follow L Jose Rachel MD PATHOLOGY/CYTOLOGY O IRMA Performing Organization Address [facility] de Phone Number [facility] [place] [address] * Surgical Pathology Report (12/19/2020 12:53 PM EDT) FINAL DIAGNOSIS (AP) [id number] ? Location: 4T; EA07; A The signing [...] MD Verified: ??12/26/2020 15:38 ??Pathologist Performed at: ??-[facility] Dept. [place]ology, [place], [place] ADDITIONAL STUDIES Immunohistochemistry Studies: Formalin-fixed, paraffin-embedded [...] labeled G1-G2. ??elisa 12/26/2020 3:38 PM EDT [facility] 12/19/2020 12:5 3 PM EDT L Jose Rachel MD PATHOLOGY/CYTOLOGY Cltoilde SOLIS [facility] [place] [address] * COLONOSCOPY (12/19/2020 12:03 PM EDT) COLONOSCOPY [facility] Endoscopy Procedure Date: 12/19/2020 12:03 PM ? Patient Name: Kim Funes ? Date of : 1960 ? Age: 60 ? Order #: [id number] ? Instrument Name: [id number] ? Procedure: ? Colonoscopy Patient Profile: ? This is a 60 year old female. This ? patient has ulcerative pancolitis, is ? taking adalimumab and sulfasalazine ? and is experiencing mild symptoms. Providers: ? Freddy Rachel MD, Sandoval Helton, ? RN, Codi Gifford Referring : ? Medicines: ? Midazolam mg IV, Fentanyl [...] preparation was evaluated using ? the BBPS (Moro Bowel Preparation ? Scale) with scores of: [...] involvement of the left colon ? and mbej-fj-idkprszo involvement of ? the transverse and right [...] I personally performed the entire procedure. ? L. Jose Rachel MD 12/19/2020 1:59:08 PM [...] mcg/mL) multi-dose injection ONCE PRN, Starting on e 12/19/20 at 1239, Until 12/19/20 at 1623, Intra-Operative (Intra-Procedure), Routine Given 12/19/2020 12:51 PM EDT 50 mcg Given 12/19/2020 12:42 PM EDT 50 mcg Given 12/19/2020 12:39 PM EDT 50 mcg lactated ringers infusion 100 mL/hr, Intravenous, CONTINUOUS, Starting on e 12/19/20 at 1230, Until Tu12/19/20 at 1342, Endoscopy (Day of Procedure) New Bag 12/19/2020 12:24 PM EDT 100 mL/hr 100 mL/hr midazolam (pf) (Versed) (1 mg/mL) multi-dose injection ONCE PRN, Starting on 12/19/20 at 1239, Until 12/19/20 at 1623, Intra-Operative (Intra-Procedure), Routine Given 12/19/2020 12:42 PM EDT 1 mg Given 12/19/2020 12:39 PM EDT 2 mg documented in this encounter Active and Recently Administered Medications Times are shown in EDT. Continuous Medication Order 12/17/2020 12/18/2020 12/19/2020 lactated ringers infusion (CANCELED) 100 mL/hr, Intravenous, CONTINUOUS, Starting on e 12/19/20 at 1230, Until 12/19/20 at 1342, Endoscopy (Day of Procedure) 1224 (New Bag - Prov ider: Oksana Mendez RN) PRN Medication Order 12/17/2020 12/18/2020 12/19/2020 fentaNYL (pf) (50 mcg/mL) multi-dose injection (CANCELED) ONCE PRN, Starting on 12/19/20 at 1239, Until 12/19/20 at 1623, [...] Helton RN)1242 (Given - Provider: Sandoval Helton RN) documented in this encounter Care Teams Maturity Checker Relationship Specialty Start Date End Date Marcio Devlin DO [address] [place] [address] PCP - General Family Medicine 11/11/17 documented as of this encounter
--- OUTSIDE RECORDS SUMMARY | 2024-04-08 02:30 | XMS_ITS | Encounter Summary ---
Author Organization [facility] [place] [address] Care Team Providers Care Railways Assistant Name Role Phone Marcio Devlin DO Primary Care Provider [phone] Reason for Visit * Reason Comments Specialty Pharmacy Review Encounter Details Date Type Department Care Team (Late st Contact Info) Description 01/29/2021 Specialty Pharmacy [place] [phone] Berenice Novak, [facility] Social History Tobacco Use Types [...] encounter Progress Notes * Berenice Novak - 01/29/2021 11:59 PM EDT The [facility] has completed a benefits investigation for Kim Graff Shantel to review their eligibility to fill at [facility]. Per patient's medication list they are prescribed Humira and the medication is not able to be filled at the [facility]. documented in this encounter Plan of Treatment Upcoming Encounters Date Type Department Care Team (Late st Contact Info) Description 04/19/2024 10:00 AM EDT Hospital Encounter Non-[place]vasive [place] [address] Arrived 04/29/2024 9:50 AM EDT Appointment MRI at [place] [phone] Luis Alfredo Velazquez MD [facility] [place] [address] 04/29/2024 9:50 AM EDT [place]ment [place] [address] Luis Alfredo Velazquez MD [facility] [place] [address] 06/07/2024 2:30 PM EDT TH Visit (TeleHealth) Gastroenterology at [place] [phone] Dajuan Rachel MD [facility] [place] [address] 07/02/2024 2:00 PM EDT Appointment Non-Invasive [place] [address] Luis Alfredo Velazquez MD [facility] [place] [address] 07/02/2024 4:40 PM EDT Office Visit Cardiology at [address] [phone] Luis Alfredo Velazquez MD [facility] [place] [address] documented as of this encounter Visit Diagnoses Not on filedocumented in this encounter Care Teams Railways Assistant Relationship Specialty Start Date End Date Marcio Devlin DO [address] [place] [address] PCP - General Family Medicine 11/11/17 documented as of this encounter
--- OUTSIDE RECORDS SUMMARY | 2024-04-08 02:30 | XMS_ITS | Encounter Summary ---
Author Organization [facility] [place] [address] Care Team Providers Care Facilities Flight Check Pilot Name Role Phone Marcio Devlin DO Primary Care Provider [phone] Reason for Visit * Reason Comments Medication Refill Encounter Details Date Type Department Care Team (Late st Contact Info) Description 10/17/2020 Refill [place] [address] [facility] DR GASTROENTEROLOGY [place] [address] Ulcerative pancolitis without complication Social History Tobacco [...] AM EDT Hospital Encounter Non-Invasive [place] [address] Arrived 04/29/2024 9:50 AM EDT Appointment MRI at [place] [address] [address] [facility] [place] [address] 04/29/2024 9:50 AM EDT Appointment MRI at [place] [address] [address] [facility] [place] [address] 06/07/2024 2:30 PM EDT TH Visit (TeleHealth) Gastroenterology at [place] [address] [facility] GASTROENTEROLOGY [place] [address] 07/02/2024 2:00 PM EDT Appointment Non-Invasive Cardiology Lab [place] [address] [address] [facility] [place] [address] 07/02/2024 4:40 PM EDT Office Visit Cardiology at [place] [phone] [address] [facility] [place] [address] documented as of this encounter Visit Diagnoses Diagnosis Ulcerative pancolitis without complication documented in this encounter Care Teams Facilities Flight Check Pilot Relationship Specialty Start Date End Date Marcio Devlin DO [address] [place] [address] PCP - General Family Medicine 11/11/17 documented as of this encounter
--- OUTSIDE RECORDS SUMMARY | 2024-04-08 02:30 | XMS_ITS | Encounter Summary ---
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 Per patient's medication list they are prescribed Humira and is not able to be filled at the [facility]. documented in this encounter Plan of Treatment Upcoming Encounters Date Type Department Care Team (Late st Contact Info) Description 04/19/2024 10:00 AM EDT Hospital Encounter Non-Invasive Cardiology Lab [place] [phone] Arrived 04/29/2024 9:50 AM EDT Appointment MRI at [address] Luis Alfredo Velazquez MD [facility] [place] [address] 04/29/2024 9:50 [place] [address] Luis Alfredo Velazquez MD [facility] [place] [address] 06/07/2024 2:30 PM EDT TH Visit (TeleHealth) Gastroenterology at [place] [address] Dajuan Rachel MD [facility] [place] [address] 07/02/2024 2:00 PM EDT Appointment Non-Invasive Cardiology Lab [place] [phone] Luis Alfredo Velazquez MD [facility] [place] [address] 07/02/2024 4:40 PM EDT Office Visit Cardiology at [place] [phone] Luis Alfredo Velazquez MD [facility] [place] [address] documented as of this encounter Visit Diagnoses Not on filedocumented in this encounter Care Teams It Solutions Architect Relationship Specialty Start Date End Date Marcio Devlin DO [address] [place] [address] PCP - General Family Medicine 11/11/17 documented as of this encounter
--- OUTSIDE RECORDS SUMMARY | 2024-04-08 02:30 | XMS_ITS | Encounter Summary ---
[place] [address] Care Team Providers Care Bindery Worker Name Role Phone Marcio Devlin DO Primary Care Provider [phone] Encounter Details Date Type Department Care Team (Latest Contact Info) Description 11/09/2019 1:00 PM EST Laboratory Appointment Lab [address] [place] [address] Ulcerative pancolitis without complication; Adalimumab (Humira) long-term use Social History Tobacco Use Types Packs/Day [...] AM EDT Hospital Encounter Non-[place] [phone] Arrived 04/29/2024 9:50 AM EDT [place] [address] Luis Alfredo Velzaquez MD [facility] [place] [address] 04/29/2024 9:50 AM ED[place] [phone] Luis Alfredo Velazquez MD [facility] [place] [address] 06/07/2024 2:30 PM EDT TH Visit (TeleHealth) [place]enterology [place] [address] Dajuan Rachel MD [facility] GASTROENTER[place] [address] 07/02/2024 2:00 PM EDT Appointment Non-[place] [phone] Luis Alfredo Velazquez MD [facility] [place] [address] 07/02/2024 4:40 PM EDT Office Visit Cardiology at [address] [phone] Luis Alfredo Velazquez MD [facility] [place] [address] documented as of this encounter Procedures Procedure Name Priority Date/Time Associated Diagnosis Comments HC PCH ADALIMUMAB QUANT Routine 11/09/2019 1:19 PM EST Ulcerative pancolitis without complication Adalimumab (Humira) long-term use HC C-REACTIVE PROTEIN Routine 11/09/2019 1:19 PM EST Ulcerative pancolitis without complication Adalimumab (Humira) long-term use HC QUANTIFERON Routine 11/09/2019 1:19 PM EST Ulcerative pancolitis without complication Adalimumab (Humira) long-term use HEMOGRAM Routine 11/09/2019 1:19 PM EST Ulcerative pancolitis without complication Adalimumab (Humira) long-term use DIFFERENTIAL, AUTOMATED Routine 11/09/2019 1:19 PM EST Ulcerative pancolitis without complication Adalimumab (Humira) long-term use HC HEPATITIS B CORE AB Routine 0 1:19 PM EST Ulcerative pancolitis without complication Adalimumab (Humira) long-term use HC HEPATITIS B SURFACE AB Routine 11/09/2019 1:19 PM EST Ulcerative pancolitis without complication Adalimumab (Humira) long-term use HC HEPATITIS B SURFACE AG Routine 11/09/2019 1:19 PM EST Ulcerative pancolitis without complication Adalimumab (Humira) long-term use HC CBC,PLT & AUTO DIFF Routine 0 1:19 PM EST Ulcerative pancolitis without complication Adalimumab (Humira) long-term use COMPREHENSIVE METABOLIC PANEL (NON-FASTING) Routine 11/09/2019 1:19 PM EST Ulcerative pancolitis without complication Adalimumab (Humira) long-term use documented in this encounter Results * Differential, Automated (11/09/2019 1:19 PM EST) Neutrophils % 63.2 % [facility] Neutr Abs (ANC) 4.44 1.70 - 6.10 x10(3)/[facility] Lymphocytes % 26.1 % [facility] Lymphocytes Abs 1.8 0.9 - 3.2 x10(3)/[facility] Monocytes % 8.9 % [facility] Monocyte Abs 0.6 0.3 - 0.9 x10(3)/[facility] Eosinophils % 1.1 % [facility] Eosinophils Abs 0.1 0.0 - 0.4 x10(3)/[facility] Basophils % 0.4 % [facility] Basophils Abs 0.0 0.0 - 0.1 x10(3)/[facility] Immature Gran % 0.30 % [facility] Comment: Immature granulocytes(IG's)percentage and absolute count will include metamyelocytes, myelocytes, and promyelocytes. Blood smears from CBCs yielding IG's will be scanned manually for concordance. If this scan disagrees with the automated IG or if promyelocytes are noted, a manual differential will be performed. Melanie Gran Abs 0.02 0.00 - 0.04 x10(3)/[facility] Blood specimen (specimen) 11/09/2019 1:19 PM EST 11/09/2019 1:30 PM EST Narrative Resulting Agency Comment Spec In Lab Froilan Sahni MD HEMATOLOGY ORDERA BLES [facility] [place] [address] * Hemogram (11/09/2019 1:19 PM EST) WBC 7.0 4.0 - 9.5 x10(3)/[facility] RBC 4.31 4.00 - 5.21 x10(6)/[facility] Hemoglobin 12.9 11.7 - 15.5 gm/dL [facility] Hematocrit 40.2 35.7 - 45.8 % [facility] MCV 93.3 82.6 - 94.4 fL [facility] MCH 29.9 27.1 - 32.0 pg [facility] MCHC 32.1 31.7 - 35.0 gm/dL [facility] Platelets 241 145 - 357 x10(3)/[facility] RDWSD 45.3 37.0 - 46.0 fL [facility] RDWCV 13.2 11.5 - 14.1 % [facility] MPV 10.1 7.6 - 12.9 fL [facility] nRBC % Auto 0.0 % [facility] nRBC Abs Auto 0.000 0.000 - 0.000 x10(3)/mcL [facility] Blood specimen (specimen) 11/09/2019 1:19 PM EST 11/09/2019 1:30 PM EST Narrative Resulting Agency Comment Spec In Lab Froilan Sahni MD HEMATOLOGY ORDERA BLES Performing Organization Address [facility] Co de Phone Number [facility] [place] [address] * (ABNORMAL) CRP, acute inflammation (11/09/2019 1:19 PM EST) CRP 5.4(H) <=4.9 mg/L [facility] Blood specimen (specimen) 11/09/2019 1:19 PM EST 11/09/2019 1:30 PM EST Narrative Resulting Agency Comment Spec In Lab Froilan Sahni MD CHEMISTRY ORDERAB LES Performing Organization Address [facility] Co de Phone Number [facility] [place] [address] * Comprehensive metabolic panel (non-fasting) (11/09/2019 1:19 PM EST) Glucose Lvl 124 65 - 199 mg/dL [facility] Comment:Diabetes: >=200 mg/d L plus symptoms BUN 8 8 - 18 mg/dL [facility] Creatinine 0.80 0.70 - 1.20 mg/dL [facility] Sodium 145 135 - 145 mmol/L [facility] Potassium 3.7 3.5 - 5.0 mmol/L [facility] Comment: Please note: ??Patients with WBC >100,000 may have falsely elevated Potassium levels. ??For accurate Potassium quantification in these patients send serum separator tube (gold top) for subsequent determinations. ??Contact the Clinical Chemistry Laboratory if there are any questions. Chloride 105 98 - 107 mmol/L [facility] CO2 27 22 - 31 mmol/L [facility] Anion Gap 13 5 - 15 mmol/L [facility] Calcium 9.5 8.5 - 10.5 mg/dL [facility] Total Protein 7.9 6.1 - 8.0 gm/dL [facility] Albumin 4.0 3.2 - 5.2 gm/dL [facility] AST 19 0 - 30 unit/L [facility] ALT 12 0 - 30 unit/L [facility] Alk Phos 82 35 - 105 unit/L [facility] Total Bilirubin 0.4 0.2 - 1.3 mg/dL [facility] Estimated GFR 81 >=60 mL/min/1. 73 m?? [facility] Comment: The eGFR was calculated using the CKD-EPI equation. As with all creatinine based estimates of kidney function, eGFR values calculated with the CKD-EPI equation are not accurate in patients with acute kidney failure, extremes of body mass or the acutely ill. [email or web address]/[facility] ENIDnkf eGFR 94 >=60 mL/min/1. 73 m?? [facility] Comment: The eGFR was calculated using the CKD-EPI equation. As with all creatinine based estimates of kidney function, eGFR values calculated with the CKD-EPI equation are not accurate in patients with acute kidney failure, extremes of body mass or the acutely ill. [email or web address] Blood specimen (specimen) 11/09/2019 1:19 PM EST 11/09/2019 1:30 PM EST Narrative Resulting Agency Comment Spec In Lab Froilan Sahni MD CHEMISTRY ORDERAB LES [facility] [place] [address] * QuantiFERON-TB Gold (11/09/2019 1:19 PM EST) QFT Nil 0.040 IU/mL [facility] QFT TB Ag1-Nil 0.010 IU/mL [facility] QFT TB Ag2-Nil 0.100 IU/mL [facility] QFT Mitogen-Nil >10.000 IU/mL [facility] Quantiferon TB Negative Negative [facility] Quantiferon TB Interp M. tuberculosis infection NOT likely A negative specimen should have a TB1 Ag minus Nil value and TB2 Ag minus Nil value of less than 0.35 IU/mL OR a TB1 Ag minus Nil or TB2 Ag minus Nil value greater than or equal to 0.35 IU/mL AND a TB Ag minus Nil value from the same tube of less than 25% of the Nil value. A negative specimen must also have a mitogen minus Nil value greater than or equal to 0.5 IU/mL. A negative QFT-Plus result does not preclude the possibility of M. tuberculosis infection. False negative results can occur due to stage of infection (specimen obtained prior to the development of immune response), co-morbid conditions which affect immune function, or other immunological factors. [facility] Comment: The performance of the QFT-Plus assay has not been extensively evaluated with specimens from the following individuals: Individuals who have impaired or altered immune functions, such as those who have HIV infection or AIDS, those who have transplantation managed with immunosuppressive treatment or others who receive immunosuppressive drugs (e.g., corticosteroids, methotrexate, azathioprine, cancer chemotherapy), those who have other clinical conditions, such as diabetes, silicosis, chronic renal failure, and hematological disorders (e.g., leukemia and lymphomas), or those with other specific malignancies (e.g., carcinoma of the head or neck and lung). Individuals younger than age 17 years women. Diagnosis of, or the exclusion of tuberculosis disease, and assessment of Latent Tuberculosis Infection (LTBI) requires a combination of epidemiological, historical, Medical and diagnostic findings that should be taken into account when interpreting QFT-Plus results. Blood specimen (specimen) 11/09/2019 1:19 PM EST 11/10/2019 7:43 AM EST Narrative Resulting Agency Comment Spec In Lab Froilan Sahni MD CHEMISTRY ORDERAB LES Performing Organization Address [facility] Co de Phone Number [facility] [place] [address] * Hepatitis B Core Antibody, Total (11/09/2019 1:19 PM EST) Hep B Core Ab Negative Negative [facility] Blood specimen (specimen) 11/09/2019 1:19 PM EST 11/09/2019 1:30 PM EST Narrative Resulting Agency Comment Spec In Lab Froilan Sahni MD CHEMISTRY ORDERAB LES Performing Organization Address [facility] de Phone Number [facility] [place] [address] * Hepatitis B Surface Antibody (11/09/2019 1:19 PM EST) HepB Surface Ab Quant 61.4 IU/L [facility] Comment: HepB Surface Ab Quant: Unvaccinated: < 8.5 IU/L Vaccinated: > 11.5 IU/L HepB Surface Ab Positive [facility] Comment: Patient is considered to be immune to HBV infection. Expected Results: Vaccinated: Positive Unvaccinated: Negative Blood specimen (specimen) 11/09/2019 1:19 PM EST 11/09/2019 1:30 PM EST Narrative Resulting Agency Comment Spec In Lab Froilan Sahni MD IMMUNOLOGY ORDERA BLES Performing Organization Address [facility] Co de Phone Number [facility] [place] [address] * Hepatitis B Surface Antigen (11/09/2019 1:19 PM EST) HepB Surface Ag Negative Negative [facility] Blood specimen (specimen) 11/09/2019 1:19 PM EST 11/09/2019 1:30 PM EST Narrative Resulting Agency Comment Spec In Lab Froilan Sahni MD CHEMISTRY ORDERAB LES [facility] [place] [address] * Adalimumab Quant with Reflex to Antibody (11/09/2019 1:19 PM EST) Adalimumab Level 6.0 mcg/mL [facility] Comment: For clinical assessment of response to therapy, adalimumab should be measured at trough. When adalimumab trough concentrations are greater than 5.0 mcg/mL, clinically relevant [id number] are unlikely and reflex testing will not be performed. REFERENCE VALUE Limit of Quantitation = 0.8 mcg/mL ADDITIONAL INFORMATION This test was developed and its performance characteristics determined by [facility] in a manner consistent with CLIA requirements. This test has not been cleared or approved by the U.S. Food and Drug Administration. Test Performed by: [facility] - [address] [address] Die Fitter: Oc Lorenzo M.D. Ph.D.; CLIA# [id number] Blood specimen (specimen) 11/09/2019 1:19 PM EST 11/10/2019 8:27 AM EST Narrative Resulting Agency Comment Spec In Lab Froilan Sahni MD CHEMISTRY ORDERAB LES [facility] [place] [address] documented in this encounter Visit Diagnoses Diagnosis Ulcerative pancolitis without complication Adalimumab (Humira) long-term use Encounter for long-term (current) use of other medications documented in this encounter Care Teams Bindery Worker Relationship Specialty Start Date End Date Marcio Devlin DO [address] [place] [address] PCP - General Family Medicine 11/11/17 documented as of this encounter
--- OUTSIDE RECORDS SUMMARY | 2024-04-08 02:30 | XMS_ITS | Encounter Summary ---
Author Organization [facility] Address [facility] [place] [address] Care Team Providers Care Lab Tech Name Role Phone Marcio Devlin DO Primary Care Provider [phone] Encounter Details Date Type Department Care Team (Latest Contact Info) Description 08/07/2020 2:30 PM EST TH Visit (TeleHealth) Rheumatology at [facility] [place] [phone] Gabe Fong MD [facility] [place] [address] Inflammatory arthropathy; Ulcerative colitis without complications, unspecified location; High risk medication use; 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; Morning joint stiffness; Ankylosing spondylitis, unspecified site of spine; Primary osteoarthritis of both hips; Ankylosing spondylitis of cervical region; Medication monitoring encounter; Osteopenia, unspecified location Social History Tobacco Use [...] Progress Notes * Gabe Fong MD - 08/07/2020 2:30 PM EST Rheumatology Follow-Up Video Note PCP: Marcio [...] . She saw GI on 03/27 has pending labs that were to be sent over. No swelling, redness or warmth joints morning stiffness < 15minutes -She denies any uveitis sx or new or worsening IBD sx, low back sx, new rashes -She had a DEXA scan in 2016 that was revewied with her that showed [...] diff: WNL CMP: WNL Imaging: [place] on IMPRESSION The measurements satisfied the WHO classification [...] or reported ADRs from medications. Dz activity low No SE to meds Most recent Repat labs pedning. OP on Vitamin D and fish oil ?? -Continue current meds: 1) Humira 40 mg q1week per GI 2) SZS 1000 mg BID -DEXA shoed worsening ostteopena refer to Endo -Continued VitD and Ca supplements as she has been doing -Advised to follow up with PCP shingrix, pneumo vax and flu Follow up in 6 months No orders of the defined types were placed in this encounter. Return in about 6 months (around 02/04/2021). Past Medical History: Diagnosis Date ??? Ankylosing spondylitis 02/21/2011 ??? Hepatitis ??? Hypertension ??? Mild asthma 02/24/2018 ??? Type 2 diabetes mellitus without complication, without long-term current use of insulin 02/24/2018 Patient Active Problem List Diagnosis Date Noted ??? Osteopenia since DXA scan in 1995 (T-score -1.7 at the spine) 04/27/2020 Class: Chronic ??? High risk medication use 06/01/2019 [...] WITH BX performed by YAQUELIN ESTRADA at [facility] ??? PRO COLONOSCOPY, BIOPSY N/A 03/04/2017 COLONOSCOPY FLEXIBLE, WITH BX (WRVU 3.66) performed by Raúl Austin MD at [facility] ??? PRO COLONOSCOPY, BIOPSY N/A 11/09/2019 COLONOSCOPY FLEXIBLE, WITH BX (WRVU 3.66) performed by Froilan Sahni MD at [facility] ??? PRO COLONOSCOPY, DIAGNOSTIC N/A 11/09/2019 COLONOSCOPY, DIAGNOSTIC performed by Froilan Sahni MD at [facility] ??? PRO COLONOSCOPY, REMV LESN, SNARE 01/02/2011 COLONOSCOPY, POLYPECTOMY, REMOVAL LESION BY SNARE performed by YAQUELIN ESTRADA at [facility] ??? PRO COLONOSCOPY, REMV LESN, SNARE N/A 03/04/2017 COLONOSCOPY, POLYPECTOMY, REMOVAL LESION BY SNARE (WRVU 4.67) performed by Raúl Austin MD at [facility] ??? PRO COMBINED ANT/POST COLPORRHAPHY N/A 03/10/2018 COLPORRHAPHY ANTERIOR-POSTERIOR; INC CYSTOURETHROSCOPY (WRVU 14.44) performed by Liang Fong MD at [facility] ??? PRO REVAGINAL PROLAPSE, UTEROSACRAL N/A 03/10/2018 COLPOPEXY, VAGINAL, INTRAPERITONEAL APPROACH (WRVU 11.66) [facility] ??? PRO SLING OPER STRES INCONTINENCE N/A 03/10/2018 URETHRAL SUSPENSION, SLING\FASCIA OR SYNTHETIC ([facility]) performed by Liang Fong MD at [facility] ??? PRO VAG HYST, RMV TUBE/OVARY N/A 03/10/2018 HYSTERECTOMY, VAGINAL, REMOVAL TUBE(S) & OR OVARY(S) ([facility] 15.94) performed by Liang Fong MD at [facility] ??? SALPINGECTOMY ??? XR FLUORO INJECTION DRAINAGE JOINT LG RIGHT Right 03/09/2019 XR Fluoro Guided Joint Injection Large Right 03/09/2019 [facility] XRAY Family History Problem Relation [...] file Gets together: Not on file Attends spiritism service: Not on file Active member of [...] Social History Narrative ??? Not on file Current Outpatient Medications Medication Sig Dispense Refill [...] mouth daily. ??? SUMAtriptan (IMITREX) 20 mg/actuation [place], Non-Aerosol 1 spray as needed. ??? ferrous [...] to Visit Medication Sig Dispense Refill ??? fish oil-omega-3 [...] mouth daily. ??? SUMAtriptan (IMITREX) 20 mg/actuation [place], Non-Aerosol 1 spray as needed. ??? ferrous [...] Doxycycline Nausea And Vomiting Nausea/Vomiting, Patient reported documented in this encounter Plan of Treatment Upcoming Encounters Date Type Department Care Team (Late st Contact Info) Description 04/19/2024 10:00 AM EDT Hospital Encounter Non[place] [phone] Arrived 04/29/2024 9:50 AM EDT [place] [phone] Luis Alfredo Velazquez MD [facility] [place] [address] 04/29/2024 9:50 AM EDT [place] [phone] Luis Alfredo Velazquez MD [facility] [place] [address] 06/07/2024 2:30 PM EDT TH Visit (TeleHealth) [place] [phone] Dajuan Rachel MD [facility] DR [place] [address] 07/02/2024 2:00 PM EDT Appointment Non-[place] [phone] Luis Alfredo Velazquez MD [facility] [place] [address] 07/02/2024 4:40 PM EDT Office Visit Cardiology at [address] [phone] Luis Alfredo Velazquez MD [facility] [place] [address] documented as of this encounter Visit Diagnoses Diagnosis Inflammatory arthropathy Arthropathy, unspecified, site unspecified Ulcerative colitis without complications, unspecified location High risk medication use Encounter for long-term (current) use of other medications 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 Morning joint stiffness Stiffness of joint, not elsewhere classified, unspecified site Ankylosing spondylitis, unspecified site of spine Primary osteoarthritis of both hips Primary localized osteoarthrosis, pelvic region and thigh Medication monitoring encounter Encounter for therapeutic drug monitoring Osteopenia, unspecified location documented in this encounter Care Teams Lab Tech Relationship Specialty Start Date End Date Marcio Devlin DO [address] [place] [address] PCP - General Family Medicine 11/11/17 documented as of this encounter
--- OUTSIDE RECORDS SUMMARY | 2024-04-08 02:30 | XMS_ITS | Encounter Summary ---
[place] [address] Care Team Providers Care Sole Layer Hand Name Role Phone Marcio Devlin DO Primary Care Provider [phone] Reason for Visit * Reason Onset Date Comments Reminder Appointment 01/29/2021 Encounter Details Date Type Department Care Team (Late st Contact Info) Description 01/29/2021 Telephone [place] [phone] Libby Guerin CCMA Reminder Appointment Social History Tobacco Use Types [...] encounter Miscellaneous Notes * Telephone Encounter - Libby Guerin CCMA - 01/29/2021 9:26 AM EDT Called patient to review medications and allergies for their upcoming gastroenterology Type of Appointment: Telehealth appointment. Reach Patient during MA Check: No, Left Message Was unable to reach patient before appointment time Notes for the provider: Notes for the nurse: documented in this encounter Plan of Treatment Upcoming Encounters Date Type Department Care Team (Late st Contact Info) Description 04/19/2024 10:00 AM EDT Hospital Encounter Non-[place] [address] Arrived 04/29/2024 9:50 AM EDT Appointment MRI at [address] Luis Alfredo Velazquez MD [facility] [place] [address] 04/29/2024 9:50 AM EDT Appointment MRI at [place] [address] Luis Alfredo Velazquez MD [facility] [place] [address] 06/07/2024 2:30 PM EDT TH Visit (TeleHealth) [place] [phone] Dajuan Rachel MD [facility] [place] [address] 07/02/2024 2:00 PM EDT Appointment Non-[place] [address] Luis Alfredo Velazquez MD [facility] [place] [address] 07/02/2024 4:40 PM EDT Office Visit Cardiology at [place] [phone] Luis Alfredo Velazquez MD [facility] [address] [place] [phone] documented as of this encounter Visit Diagnoses Not on filedocumented in this encounter Care Teams Sole Layer Hand Relationship Specialty Start Date End Date Marcio Devlin DO [address] [place] [address] PCP - General Family Medicine 11/11/17 documented as of this encounter
--- OUTSIDE RECORDS SUMMARY | 2024-04-08 02:30 | XMS_ITS | Encounter Summary ---
Author Organization [facility] [place] [address] Care Team Providers Care Human Performance Technologist Name Role Phone Marcio Devlin DO Primary Care Provider [phone] Encounter Details Date Type Department Care Team (Latest Contact Info) Description 03/27/2020 10:00 AM EDT TH Visit (TeleHealth) [place] [address] [facility] [place] [address] Ulcerative pancolitis without complication Social History Tobacco [...] this encounter Patient Instructions * Patient Instructions* Glen Atkins MD - 03/27/2020 10:00 AM EDT - Obtain calprotectin that was done in November from [facility] - Repeat fecal calprotectin now, along with cbc, cmp, crp, and adalimumab level - Timing of repeat colonoscopy TBD as above, but should be no later than Sep - She is UTD on her vaccinations - Following with Dr. Cruz for her MÉNDEZ and seeing rheumatology as well - Follow in IBD clinic in 4 months, telehealth ok unless she is feeling unwell then in-person wouldbe better documented in this encounter Progress Notes * Dajuan Rachel MD - 03/27/2020 10:00 AM EDT GASTROENTEROLOGY TELEMEDICINE PROGRAM - ESTABLISHED PATIENT VISIT Chief Complaint: Kim Funes is a 59 y.o. patient with ulcerative colitis currently on weekly Humira 40 mg subQ and SSZ 1g BID, MÉNDEZ, ankylosing spondylitis and iritis. Detailed IBD history: ??? diagnosed in 1993 with L-sided disease ??? Treated with sulfasalazine 3 g PO qd ??? Colonoscopy 2001 - mild L sided disease ??? last colonoscopy 09/19/08 (Dr. Shady Luz at [facility]) for surveillance for dysplasia. Areas [...] diagnosed ~1991; also history of iritis ??? On weekly Humira, which was increased in November 2019 (level in Oct = 6), as well as BID SSZ ??? Colonoscopy Oct 2019: normal rectum, mod-severe inflammation and narrowing from 6-25 cm from the anus, patchy mild inflammation from 20-40 cm, normal remainder of colon. Path: mild active chroniccolitis in ac/tc/dc/sc, severe active colitis with ulceration in proximal rectum. CURRENT MEDS: Humira 40 mg subQ weekly Sulfasalazine 1g BID Interval history: - MELBA with Delilah in November 2019 after colonoscopy, Humira increased - Feeling better since the change to weekly Humira - 3-4 formed BM's a day (was having 7-8 loose stools), no more blood in stool. No nocturnal symptoms. - No abdominal pain, urgency, tenesmus, n/v, fevers, or chills - Having some aching pain in the R hip, seeing rheum again Friday - Just had an appointment with Dr. Cruz for her MÉNDEZ, stopped ursodiol Review of systems: 14-point review of systems [...] mouth daily. ??? SUMAtriptan (IMITREX) 20 mg/actuation [place], Non-Aerosol 1 spray as needed. ??? ferrous [...] by interface; created by interface; Colonoscopy, Biopsy (91821) (01/02/2011); Colonoscopy, Remv Lesn, Snare (46079) (01/02/2011); Colonoscopy, Biopsy ([id number]) (N/A, 03/04/2017); Colonoscopy, Remv Lesn, Snare (42617) (N/A, 03/04/2017); salpingectomy; orthopedic surgery; Vag Hyst, Rmv Tube/Ovary (62671) (N/A, 03/10/2018); Combined Ant/Post Colporrhaphy (09194) (N/A, 03/10/2018); Sling Oper Stres Incontinence (84122) (N/A, 03/10/2018); Revaginal Prolapse, Uterosacral (45447) (N/A, 03/10/2018); XR Fluoro Guided Joint Injection Large Right (Right, 03/09/2019); Colonoscopy, Diagnostic (20504) (N/A, 11/09/2019); and Colonoscopy, Biopsy ([id number]) (N/A, 11/09/2019). Family History: family history includes [...] procedures (my review of prior records): Labs from 11/09/19 reviewed: CBC nl, CMP unremarkable, adalimumab level = 6, CRP 5.4 Colonoscopy 11/09/19: Findings: ?External hemorrhoids were found on perianal [...] and ascending). ?The terminal ileum appeared normal. Path: DIAGNOSIS A - Ascending colon, biopsy: Mildly active chronic colitis, focal. B - Transverse colon, biopsy: Mildly active chronic colitis, focal. C - Descending colon, biopsy: Mildly active chronic colitis, focal. D - Sigmoid colon, biopsy: Mildly active chronic colitis. E - Proximal rectum, biopsy: Severely active chronic colitis with ulceration. Assessment/Plan: Ms. Funes is a 59 y.o. patient with ulcerative colitis currently on weekly Humira 40 mg subQ and SSZ 1g BID, MÉNDEZ, ankylosing spondylitis and iritis. Symptomatically she has had great improvement since increasing her Humira to weekly back in November. She is now back to her baseline 3-4 formed stools a day. Unfortunately we do not have the calprotectin level from November that was done at [facility], so we will track that down, as well as repeat another onenow. We should also check another Humira level now as well. If fecal calpro is good and she remains symptomatically better, we can stay on this course and planto repeat colonoscopy next winter time. If her calpro is elevated and/or she were to developing worsening symptoms, then we should bring her in sooner for colonoscopy. If Humira is not working, we discussed Remicade versus Stelara as potential next options. Recommendations: - Obtain calprotectin that was done in November from [facility] - Repeat fecal calprotectin now, along with cbc, cmp, crp, and adalimumab level - Timing of repeat colonoscopy TBD as above, but should be no later than Sep - She is UTD on her vaccinations - Following with Dr. Cruz for her MÉNDEZ and seeing rheumatology as well - Follow in IBD clinic in 4 months, telehealth ok unless she is feeling unwell then in-person wouldbe better Patient seen and discussed with Dr. Wilson Atkins MD [facility] [place] [address] ATTENDING ADDENDUM I interviewed Ms. Funes via video telehealth with Dr. Atkins today. I have discussed the case with him and confirm the history outlined in this note. She has had a very nice response to an increase in her Humira frequency. We discussed the rationale of following objective markers along with symptoms. In that vein, will obtain a fecal calprotectin and compare it to the one done earlier this year. Would consider changing medications from Humira to either Remicade or Stelara depending on results of her calprotectin, symptoms, and adalimumab concentration results. For now, the plan will be to continue Humira weekly. Given her longstanding disease and inability to survey well due to active disease, will need to have a repeat colonoscopy in no more than 1 year from her last. If we need to change medications, would likely do that sooner. The rest of the assessment and plan were formulatedin discussion with me at the time of this encounter, and I agree with them as documented. Freddy Rachel MD Casting Plug Assemblerstoreroom clerk Co-Director, [facility] Section of Gastroenterology [place] [address] documented in this encounter Plan of Treatment Upcoming Encounters Date Type Department Care Team (Late st Contact Info) Description 04/19/2024 10:00 AM EDT Hospital Encounter Non-Invasive [place]iology [place] [phone] Arrived 04/29/2024 9:50 [place] [address] [address] [facility] [place] [address] 04/29/2024 9:50 [place] [phone] [address] [facility] [place] [address] 06/07/2024 2:30 PM EDT TH Visit (TeleHealth) Gastroenterology at [place] [phone] [facility] DR [place] [address] 07/02/2024 2:00 PM EDT Appointment Non-Invasive Cardiology [place] [address] [address] [facility] [place] [address] 07/02/2024 4:40 PM EDT Office Visit Cardiology at [address] [phone] [facility] [place] [address] documented as of this encounter Visit Diagnoses Diagnosis Ulcerative pancolitis without complication documented in this encounter Care Teams Human Performance Technologist Relationship Specialty Start Date End Date Marcio Devlin DO [address] [place] [address] PCP - General Family Medicine 11/11/17 documented as of this encounter
--- OUTSIDE RECORDS SUMMARY | 2024-04-08 02:30 | XMS_ITS | Encounter Summary ---
Author Organization [place] [address] Care Team Providers Care Supervisory It Specialist Name Role Phone Marcio Devlin DO Primary Care Provider [phone] Reason for Referral * Consultation (Routine) - Closed Specialty Diagnoses / Procedures Referred By Contac jw Referred To Contact Gastroenterology Diagnoses Ulcerative pancolitis without complication colo- Ulcerative colitis restaging and surveillance. November 2020. Can be with any IBD provider. Dajuan Rachel MD [facility] [place] [address] [facility] [address] [place] [address] Referral ID Status Reason Start Date Expiration Date V isits Requested Visits Authorized [id number] Closed Consult, Test & Treat 08/28/2020 08/28/2021 1 1 Encounter Details Date Type Department Care Team (Latest Contact Info) Description 08/28/2020 2:30 PM EST TH Visit (TeleHealth) [place] [address] Dajuan Rachel MD [facility] [place] [address] Ulcerative pancolitis without complication Social [...] Progress Notes * Dajuan Rachel MD - 08/28/2020 2:30 PM EST GASTROENTEROLOGY TELEMEDICINE PROGRAM - ESTABLISHED PATIENT VISIT [...] last colonoscopy 09/19/08 (Dr. Shady Luz at [facility]) for surveillance for dysplasia. Areas of skip [...] subQ weekly Sulfasalazine 1g BID Interval history: Following up ulcerative colitis. I last saw her via telehealth with Dr. Atkins in March. She had a colonoscopy in October of this year with active colitis for a significant segment in the left colon.We had increased Humira from every other week to weekly at the time. She continues to feel well. She is moving her bowels 3-4 times per day. There is no urgency and no bleeding. Tolerating Humira well. She had some difficulties with insurance a couple months of months ago so missed her doses for about 3 weeks. She has been back on it without any issues. Since going to weekly Humira, her joint pains are also much better. We had planned on a repeat calprotectin in March, and she recalls submitting it. I see her serum test from March but not the calprotectin result. Review of systems: 14-point review of systems [...] mouth daily. ??? SUMAtriptan (IMITREX) 20 mg/actuation [place], Non-Aerosol 1 spray as needed. ??? ferrous [...] by interface; created by interface; Colonoscopy, Biopsy (65413) (01/02/2011); Colonoscopy, Remv Estela, Snare (10632) (01/02/2011); Colonoscopy, Biopsy (83219) (N/A, 03/04/2017); Colonoscopy, Remv Agustínn, Snare (21645) (N/A, 03/04/2017); salpingectomy; orthopedic surgery; Vag Hyst, Rmv Tube/Ovary (52015) (N/A, 03/10/2018); Combined Ant/Post Colporrhaphy (07456) (N/A, 03/10/2018); Sling Oper Stres Incontinence (73101) (N/A, 03/10/2018); Revaginal Prolapse, Uterosacral (45414) (N/A, 03/10/2018); XR Fluoro Guided Joint Injection Large Right (Right, 03/09/2019); Colonoscopy, Diagnostic (80701) (N/A, 11/09/2019); and Colonoscopy, Biopsy ([id number]) (N/A, 11/09/2019). Family History: family history includes [...] and procedures (my review of prior records): Colonoscopy 11/09/19: Findings: ?External hemorrhoids were found [...] biopsy: Severely active chronic colitis with ulceration. Fecal calprotectin in November was 340. Labs were reviewed from March. Adalimumab level ([place]) was 12.7. CBC, ESR, CMP were unremarkable. CRP was 1.8 mg/dL. Assessment/Plan: Ms. Funes is a 60 y.o. patient with ulcerative colitis currently on weekly Humira 40 mg subQ and SSZ 1g BID, MÉNDEZ, ankylosing spondylitis and iritis. She continues to have a great symptomatic result since increasing Humira to weekly in November. Symptomatically she has had great improvement since increasing her Humira to weekly back in November. Would be helpful to have an objective marker of improvement to accompany her subjective improvement. We will obtain the calprotectin test from March 16 compared to November. We discussed a repeat colonoscopy in November of next year. This will help restage more accurately andalso potentially help with surveillance of the left colon. If there is active disease, would consider Stelara. She has not yet had her flu shot. I encouraged her to do so. I also addressed the recently authorized COVID-19 vaccine. This mRNA vaccine, which is not live, is thought to be safe for IBD patients. Therefore, I recommended that she get at her first opportunity. Recommendations: - Obtain calprotectin that was done in March from [facility] - Continue Humira weekly - Plan on repeat colonoscopy in November 2020 - Recommended annual flu as well as COVID-19 vaccination - Follow in IBD clinic in December following colonoscopy. The patient was in [place] during this video telehealth visit. 15 of the 20 minutes were spent [id number] counseling the patient in the issues above. Freddy Rachel MD Preservative Filler Machine Operatortufter hand Co-Director, [facility] Section of Gastroenterology [place] [address] documented in this encounter Plan of Treatment Upcoming Encounters Date Type Department Care Team (Late st Contact Info) Description 04/19/2024 10:00 AM EDT Hospital Encounter Non-Invasive Cardiology Lab [place] [phone] Arrived 04/29/2024 9:50 AM EDT [place] [address] Luis Alfredo Velazquez MD [facility] [address] 04/29/2024 9:50 AM ED[place] [address] Luis Alfredo Velazquez MD [facility] [place] [address] 06/07/2024 2:30 PM EDT TH Visit (TeleHealth) Gastroenterology at [place] [phone] Dajuan Rachel MD [facility] [place] [address] 07/02/2024 2:00 PM EDT Appointment Non-Invasive [place] [address] Luis Alfredo Velazquez MD [facility] [place] [address] 07/02/2024 4:40 PM EDT Office Visit Cardiology at [place] [phone] Luis Alfredo Velazquez MD [facility] [place] [address] Scheduled Referrals Name Type Priority Associated Diagnoses Order Schedule Referral to Gastroenterology Outpatient Referral Routine Ulcerative pancolitis without complication Ordered: 08/28/2020 documented as of this encounter Visit Diagnoses Diagnosis Ulcerative pancolitis without complication documented in this encounter Care Teams Supervisory It Specialist Relationship Specialty Start Date End Date Marcio Devlin DO [facility] [place] [address] PCP - General Family Medicine 11/11/17 documented as of this encounter
--- OUTSIDE RECORDS SUMMARY | 2024-04-08 02:31 | XMS_ITS | Encounter Summary ---
Author Organization [facility] [place] [address] Care Team Providers Care Turkey Boner Name Role Phone Marcio Devlin DO Primary Care Provider [phone] Reason for Visit * Reason Onset Date Comments Injections 02/23/2019 Encounter Details Date Type Department Care Team (Late st Contact Info) Description 02/23/2019 [place] [phone] Glenn Choe MD [facility] [place] [address] Injections Social History Tobacco Use Types Packs/Day Years Used Date Smoking Tobacco: Never Smokeless Tobacco: Never Alcohol Use Standard Drinks/Week Comments No 0 (1 standard drink = 0.6 oz pur e alcohol) Sex and Gender Information Value Date Recorded Sex Assigned at Female 07/21/2021 4:56 PM EDT Gender Identity Female 07/21/2021 4:56 PM EDT Sexual Orientation Straight 07/21/2021 4: 56 PM EDT documented as of this encounter Miscellaneous Notes * Telephone Encounter - [place], Angus Velazquez - 02/23/2019 9:28 AM EDT 1.) Does patient have any medication allergies? Yes // See chart 2.) Patient???s approximate weight in lbs. 188 3.) Does the patient have any contrast/dye allergies?No 4.) Does the patient have a driver/sales workers for this procedure? Yes 5.) Has patient had any procedures in the past 3 months? No 6.) Is this patient ambulatory? Yes 7.) Is the patient currently taking any blood thinner medications? No 8.) Has this patient has replacement surgery of the area we are performing the procedure on? No 9.) If patient is a female <50 years old, could the patient be ? N/A documented in this encounter Plan of Treatment Upcoming Encounters Date Type Department Care Team (Late st Contact Info) Description 04/19/2024 10:00 AM EDT Hospital Encounter Non-Invasive Cardiology Lab [place] [phone] Arrived 04/29/2024 9:50 AM EDT [place] [address] Luis Alfredo Velazquez MD [facility] [place] [address] 04/29/2024 9:50 AM EDT Appointment MRI at [place] [phone] Luis Alfredo Velazquez MD [facility] [address] 06/07/2024 2:30 PM EDT TH Visit (TeleHealth) Gastroenterology at [place] [phone] Dajuan Rachel MD [facility] [place] [address] 07/02/2024 2:00 PM EDT Appointment Non-Invasive Cardiology Lab [place] [phone] Luis Alfredo Velazquez MD [facility] [place] [address] 07/02/2024 4:40 PM EDT Office Visit Cardiology at [address] [phone] Luis Alfredo Velazquez MD [facility] [place] [address] documented as of this encounter Visit Diagnoses Not on filedocumented in this encounter Care Teams Turkey Boner Relationship Specialty Start Date End Date Marcio Devlin DO [address] [place], [place] [address] [address] PCP - General Family Medicine 11/11/17 documented as of this encounter
--- OUTSIDE RECORDS SUMMARY | 2024-04-08 02:31 | XMS_ITS | Encounter Summary ---
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 Name Role Phone Marcio Devlin DO Primary Care Provider [phone] Reason for Visit * Auth/Cert Specialty Diagnoses / Procedures Referred By Missy escalera Referred To Contact Diagnoses Uterine prolapse RADHA (stress urinary incontinence, female) UTERINE PROLAPSE, STRESS URINARY INCONTINENCE Procedures PRO VAG HYST, RMV TUBE/OVARY PRO UNLISTED LAPS UTER PRO COMBINED ANT/POST COLPORRHAPHY PRO LAP, SLING OPERATION HYSTERECTOMY, VAGINAL, REMOVAL TUBE(S) & OR OVARY(S) (WRVU 15.94) LAPAROSCOPY, UTEROSACRAL LIGAMENT SUSPENSION\UNLISTED (WRVU 5.56) COLPORRHAPHY ANTERIOR-POSTERIOR; INC CYSTOURETHROSCOPY (WRVU 14.44) LAPAROSCOPY, SURGICAL, SLING OPERATION FOR STRESS INCONTINENCE (WRVU 14.87) Referral ID Status Reason Start Date Expiration Date Visits Re quested Visits Authorized [id number] 1 1 Encounter Details Date Type Department Care Team (Latest Contact Info) Description 03/10/2018 6:02 AM EDT - 03/11/2018 8:53 AM EDT Hospital [facility] [place] [address] Liang Fong MD [facility] [address] Uterovaginal prolapse, incomplete; Urinary, incontinence, stress female Discharge Disposition: Home Social History Tobacco Use [...] Sign Reading Time Taken Comments Blood Pressure 112/51 03/11/2018 7:36 AM EDT Pulse 66 03/11/2018 7:36 AM EDT Temperature 37.1 ??C (98.8 ??F) 03/11/2018 7:36 AM ED T Respiratory Rate 16 03/11/2018 7:36 AM EDT Oxygen Saturation 96% 03/11/2018 7:36 AM EDT Inhaled Oxygen Concentration - - Weight 90.7 kg (200 lb) 03/10/2018 6:21 AM EDT Height 167.6 cm (5' 6) 03/10/2018 6:21 AM EDT Body Mass Index 32.28 03/10/2018 6:21 AM EDT documented in this encounter Discharge Summaries * Elizabeth Abreu MD - 03/11/2018 6:22 AM EDT Images from the original note were not included. Discharge Summary Patient Name: Kim Funes Patient Age: 57 y.o. Language: Yoruba Race: White Ethnicity: Not nor Admit date: 03/10/2018 Discharge date and time: 03/11/2018 Attending Physician: Liang Fong MD Discharge Physician: Liang Fong MD Follow-up Recommendations for Providers: Follow up appointment: 04/21/18 at 1:[address] Fong Inpatient Provider Contact Information: Female Pelvic Medicine and Reconstructive Surgery Department of Obstetrics and Gynecology [phone] Discharge Diagnoses (Hospital Problems) and Secondary Diagnoses (Chronic Problems): Active Hospital Problems Diagnosis ??? Prolapse of female pelvic organs Resolved Hospital Problems Diagnosis Date Resolved No resolved problems to display. Active Non-Hospital Problems Diagnosis ??? Obesity (BMI 30.0-34.9) ??? History of migraine headaches ??? Mild asthma ??? Type 2 diabetes mellitus without complication, without long-term current use of insulin ??? MÉNDEZ (nonalcoholic steatohepatitis) ??? Lipid disorder ??? Ankylosing spondylitis ??? Hypertension ??? GERD (gastroesophageal reflux disease) ??? Ulcerative colitis ??? DIFFICULT AIRWAY Operations/Major Procedures: 03/10/2018: Vaginal hysterectomy, uterosacral ligament suspension, anterior repair, retropubic midurethral sling History of Presentation: Kim presented on 18 for evaluation and assessment of RADHA and uterine prolapse of 1 year's duration. She used to only leak with exertion but now with any activity. She was seen by Dr. Hancock who diagnosed both plus a urethral caruncle and discussed a surgical repair. However, there was a concern her airway would be difficult secondary to snk spond so was referred [facility] for anesthesia to evaluate. Hospital Course: Kim Funes was admitted through Same Day Surgery and underwent the above procedures withoutcomplication. EBL was 200mL. Findings were notable for: Normal tubes and ovaries. No bladder or urethral injury. Good spill of urine from both ureteral orifices. Postoperatively the patient was taken to PACU and on POD #0 was transferred to the floor. Post operative course was uncomplicated. She was able to tolerate a regular diet and ambulate without difficulty. Stapleton catheter was removed on POD#1 and pt was able to void without issue. Her pain was well-controlled on oral medications by the time of discharge. She was discharged home on POD #1 in stable condition with follow-up in place. We discussed discharge instructions and plan of care, all questions answered. Due to her post-operative pain the patient was given a prescription for oxycodone to take only for breakthrough pain not responsive to acetaminophen and naproxen. She was counseled regarding the dangers of these medications including sedation which would impair her ability to drive safely. The potential for addiction with continued use of narcotic was discussed and the need to stop use as soon aspossible. It was recommended that she promptly destroy unused medication or take them back to drop box locations. The opioid risk assessment was done, opioid informed consent reviewed and signed by patient, PDMP query completed. Discharge instructions discussing the risk of opioids are included in her discharge instructions which are printed and given to the patient at discharge. Vital signs at Discharge: BP: 110/56, Heart Rate: 78, Temp: 37.4 ??C (99.3 ??F), Resp: 16, BMI (Calculated): 32.28 Height: 167.6 cm (5' 6) (03/10/18620) Weight: 90.7 kg (200 lb) (03/10/18620) Functional and Cognitive status: intact Important Studies and Lab Data: Labs: No results for input(s): WBC, HGB, HCT, PLATELET in the last 168 hours. No results for input(s): NA, K, CL, CO2, BUN, CREATININE in the last 168 hours. No results for input(s): AST, ALT, ALKPHOS, BILITOT, BILIDIR in the last 168 hours. No results for input(s): CALCIUM, PHOS in the last 168 hours. Studies: none Pending Studies and Lab Data: Final surgical pathology Discharge Conditions/Prognosis: good Discharge to: Home Updated Allergies/ADRs: Allergies Allergen Reactions ??? Lodine [Etodolac] Itching ??? Amoxicillin-Pot Clavulanate Nausea And Vomiting Nausea/Vomiting, patient reported ??? Celebrex [Celecoxib] Rash ??? Cephalexin Nausea And Vomiting Nausea/Vomiting, Patient reported ??? Doxycycline Nausea And Vomiting Nausea/Vomiting, Patient reported ??? Ibuprofen chest pains, Patient reported Immunizations Given this Hospitalization: Immunization History Administered Date(s) Administered ??? Hep A/Hep B 08/14/2010, 02/21/2011 ??? Inactivated Polio Vaccine 05/16/2013 ??? Influenza Vaccine w/Preservative, Split 07/04/2005, 07/08/2014 ??? Influenza Vaccine, Whole 06/15/2005 ??? Pneumococcal Conjugate (13 Valent) 02/29/2016 ??? Pneumococcal Polyvalent 23 03/15/2014 ??? Tuberculin Skin Test, PPD 02/27/2009 Discharge Medications: Your Medications Notice Some of the medications listed here do not show instructions, such as how often to take the medication. Ask your doctor or nurse how to use these medications. Specifically ask about this and similar medications: multivitamin (THERAGRAN) tablet New Medications Dose Details docusate sodium 100 mg Cap Commonly known as: COLACE Take 1 capsule by mouth 2 times daily for 10 days. 100 mg Quantity: 20 capsule Refills: 0 oxyCODONE 5 mg Tab Commonly known as: ROXICODONE Take 1-2 tablets by mouth every 4 hours as needed for Pain. 5-10 mg Quantity: 10 tablet Refills: 0 Continued medications with new dosing Dose Details multivitamin Tab Commonly known as: THERAGRAN ?nk?wn!?? What changed: See the new instructions. Refills: 0 Continued medications, unchanged Dose Details Adalimumab 40 mg/0.8 mL Pnkt Commonly known as: HUMIRA PEN Inject 0.8 mLs subcutaneously every 14 days. 40 mg Quantity: 4 kit Refills: 5 aspirin 81 mg Tbec Take 81 mg by mouth daily. 81 mg Refills: 0 Calcium Carbonate-Vitamin D2 600 mg calcium- 200 unit Tab Take 1,200 mg by mouth 2 times daily. 1200 mg Refills: 0 fish oil-omega-3 fatty acids 1,000 mg Cap Take 1 g by mouth daily. 1 g Refills: 0 * fluticasone 110 mcg/actuation Hfaa Commonly known as: FLOVENT Inhale 1-2 puffs into the lungs daily. 1-2 puff Refills: 0 * fluticasone 50 mcg/actuation Spsn Commonly known as: FLONASE 2 sprays by Each Nare route daily. 2 spray Refills: 0 folic acid 1 mg Tab Commonly known as: FOLVITE 1 MG = 1 Tablet(s), PO, Once daily Refills: 0 hydroCHLOROthiazide 12.5 mg Tab Commonly known as: HYDRODIURIL Take 12.5 mg by mouth daily. 12.5 mg Refills: 0 Iron 325 mg (65 mg iron) Tab Take 325 mg by mouth daily. Generic drug: ferrous sulfate 325 mg Refills: 0 losartan 50 mg Tab Commonly known as: COZAAR Take 50 mg by mouth daily. 50 mg Refills: 0 magnesium oxide 400 mg Tab Commonly known as: MAG-OX Take 400 mg by mouth 2 times daily. 400 mg Refills: 0 metFORMIN 500 mg Tab Commonly known as: GLUCOPHAGE Take 500 mg by mouth 2 times daily. 500 mg Refills: 3 METOPROLOL SUCCINATE ORAL Take 100 mg by mouth daily. 100 mg Refills: 0 PriLOSEC 40 mg Cpdr Take 40 mg by mouth daily. Generic drug: omeprazole 40 mg Refills: 0 simvastatin 10 mg Tab Commonly known as: ZOCOR Take 10 mg by mouth nightly. 10 mg Refills: 0 sulfaSALAzine 500 mg Tab Commonly known as: AZULFIDINE Take 1,000 mg by mouth 2 times daily. 1000 mg Refills: 0 SUMAtriptan 20 mg/actuation Andrews Commonly known as: IMITREX 1 spray as needed. 1 spray Refills: 0 topiramate 25 mg Cpsp Commonly known as: TOPAMAX Take 50 mg by mouth 2 times daily. 50 mg Refills: 0 ursodiol 300 mg Cap Commonly known as: ACTIGALL Take 1 capsule by mouth 3 times daily. 300 mg Quantity: 270 tablet Refills: 3 VITAMIN C 1,000 mg Tab 1000MG, PO, Once daily Generic drug: ascorbic acid (vitamin C) Refills: 0 vitamin E 400 unit Cap 800UNIT, PO, Once daily Refills: 0 * Notice: This list has 2 medication(s) that are the same as other medications prescribed for you. Read the directions carefully, and ask your doctor or other care provider to review them with you. Smoking Status at Discharge: History Smoking Status ??? Never Smoker Smokeless Tobacco ??? Never Used Instructions Given to Patient at Discharge: Patient Instructions Patient Discharge Instructions Follow up appointment: 04/21/18 at 1:[address] Fong Special Physician Instructions: If you are still needing a catheter to drain your bladder, please follow the instructions given to you separately for when to use the catheter and how to care for it. In addition, please call to check in with the urogynecology office nurse at [phone] to review how your bladder is working and when the catheter use can be discontinued. For problems or concerns related to this hospitalization call: [phone] weekdays, or [phone] weekends or nights. Call your doctor if you develop: --A fever over 101 degrees F --Severe pain -- Nausea / vomiting, diarrhea, intolerance of food or drink --Heavy vaginal bleeding --Urinary frequency, urgency, or feeling of incomplete emptying of the bladder --If your wound is red, hot, swollen, tender or draining yellow/green fluid Activity level: You should be able to resume your usual activities of daily living (eating, drinking, washing, walking.). You can walk or climb stairs as long as you are not straining. You should avoid more vigorous exercise for at least 6 weeks. No lifting, pushing or pulling greater than 5-10 pounds for 6 weeks. No sexual intercourse and place nothing in the vagina for 6 weeks. Diet: Regular as tolerated, drink plenty of fluids. Use a stool softener (Colace) twice daily and Metamucil or Citrucel once or twice daily to keep your bowel movement soft and regular, so you do nothave to strain. Driving: Do not drive until you are off of all narcotic medications and you are not feeling pain; usually about 1-2 weeks. Shower/Bath: Showering is fine. Do not soak in a tub for two weeks following surgery, this may cause your stitches to dissolve too early. Wound Care: Most women will experience some vaginal bleeding and discharge after surgery. You will want to havesome menstrual pads at home. - Keep any abdominal wounds clean and dry. Pain medications include Naproxen and oxycodone ??? Please take 500 mg Naproxen every 12 hours around the clock for the next several days and then after that use it only as needed. Drink plenty of fluids while you are home with this medication ??? Please use the oxycodone 5 mg every 4 hours as needed for pain that breaks through the naproxen To soften stools: - Colace 1 capsule by mouth twice daily as needed for constipation Please take your medication exactly as prescribed. Read all instructions that come with your medication. ?? Using narcotic pain medication (such as oxycodone, hydromorphone (Dilaudid), morphine, fentanyl,or tramadol) may cause addiction. While addiction is more common in people with a personal or family history of addiction, it can occur in anyone. ?? Taking more than the prescribed amount of medication or using with alcohol or other drugs can cause you to stop breathing resulting in coma, brain damage, or . ?? Opioids (oxycodone, hydromorphone/Dilaudid, morphine, fentanyl, tramadol) can slow reaction time, cause drowsiness, or cloud judgement. It is unsafe for you to drive or operate heavy machinery while taking this medication. ?? Opioids (oxycodone, hydromorphone/Dilaudid, morphine, fentanyl, tramadol) are at risk of being diverted by anyone with access to your home. Opioids should be stored in a safe and secure place, such as a locked cabinet or safe. ?? Unused opioids (oxycodone, hydromorphone/Dilaudid, morphine, fentanyl, tramadol) should be disposed of according to the label or patient information. If there are no specific instructions, medications may be returned to a take- back location or mixed with a small amount of water and an undesirable waste substance such as coffee grounds or cat litter. General Instructions None Future Appointments and Orders Future Appointments Provider Department Dept Phone 04/21/2018 1:40 PM Liang Fong MD Obstetrics and Gynecology at [place] [phone] 08/31/2018 11:00 AM Nico Campbell DO Rheumatology at [place] [phone] Discharge References/Attachments None Provider Contact Information: Marcio Devlin DO [phone] documented in this encounter Discharge Instructions * Patient Instructions* Elizabeth Abreu MD - 03/10/2018 6:39 AM EDT Images from the original note were not included. Patient Discharge Instructions Follow up appointment: 04/21/18 at 1:[address] Fong Special Physician Instructions: If you are still needing a catheter to drain your bladder, please follow the instructions given to you separately for when to use the catheter and how to care for it. In addition, please call to check in with the urogynecology office nurse at [phone] to review how your bladder is working and when the catheter use can be discontinued. For problems or concerns related to this hospitalization call: [phone] weekdays, or [phone] weekends or nights. Call your doctor if you develop: --A fever over 101 degrees F --Severe pain -- Nausea / vomiting, diarrhea, intolerance of food or drink --Heavy vaginal bleeding --Urinary frequency, urgency, or feeling of incomplete emptying of the bladder --If your wound is red, hot, swollen, tender or draining yellow/green fluid Activity level: You should be able to resume your usual activities of daily living (eating, drinking, washing, walking.). You can walk or climb stairs as long as you are not straining. You should avoid more vigorous exercise for at least 6 weeks. No lifting, pushing or pulling greater than 5-10 pounds for 6 weeks. No sexual intercourse and place nothing in the vagina for 6 weeks. Diet: Regular as tolerated, drink plenty of fluids. Use a stool softener (Colace) twice daily and Metamucil or Citrucel once or twice daily to keep your bowel movement soft and regular, so you do nothave to strain. Driving: Do not drive until you are off of all narcotic medications and you are not feeling pain; usually about 1-2 weeks. Shower/Bath: Showering is fine. Do not soak in a tub for two weeks following surgery, this may cause your stitches to dissolve too early. Wound Care: Most women will experience some vaginal bleeding and discharge after surgery. You will want to havesome menstrual pads at home. - Keep any abdominal wounds clean and dry. Pain medications include Naproxen and oxycodone ??? Please take 500 mg Naproxen every 12 hours around the clock for the next several days and then after that use it only as needed. Drink plenty of fluids while you are home with this medication ??? Please use the oxycodone 5 mg every 4 hours as needed for pain that breaks through the naproxen To soften stools: - Colace 1 capsule by mouth twice daily as needed for constipation Please take your medication exactly as prescribed. Read all instructions that come with your medication. ?? Using narcotic pain medication (such as oxycodone, hydromorphone (Dilaudid), morphine, fentanyl,or tramadol) may cause addiction. While addiction is more common in people with a personal or family history of addiction, it can occur in anyone. ?? Taking more than the prescribed amount of medication or using with alcohol or other drugs can cause you to stop breathing resulting in coma, brain damage, or . ?? Opioids (oxycodone, hydromorphone/Dilaudid, morphine, fentanyl, tramadol) can slow reaction time, cause drowsiness, or cloud judgement. It is unsafe for you to drive or operate heavy machinery while taking this medication. ?? Opioids (oxycodone, hydromorphone/Dilaudid, morphine, fentanyl, tramadol) are at risk of being diverted by anyone with access to your home. Opioids should be stored in a safe and secure place, such as a locked cabinet or safe. ?? Unused opioids (oxycodone, hydromorphone/Dilaudid, morphine, fentanyl, tramadol) should be disposed of according to the label or patient information. If there are no specific instructions, medications may be returned to a take- back location or mixed with a small amount of water and an undesirable waste substance such as coffee grounds or cat litter. documented in this encounter Medications at Time of Discharge Medication Sig Dispensed Refills Start Date End Date aspirin 81 mg Tablet, Delayed Release (E.C.) Take 81 mg by mouth daily. SUMAtriptan (IMITREX) 20 mg/actuation Russell, Non-Aerosol 1 spray as needed. 11/03/2017 metFORMIN [...] by mouth 2 times daily. 12/24/2012 10/07/2023 docusate sodium (COLACE) 100 mg Capsule Take 1 capsule by mouth 2 times daily for 10 days. 20 capsule 03/11/2018 03/21/2018 oxyCODONE (ROXICODONE) 5 mg Tablet Take 1-2 tablets by mouth every 4 hours as needed for Pain. 10 tablet 03/11/2018 04/21/2018 topiramate (TOPAMAX) 25 mg Capsule, Sprinkle Take 50 mg by mouth 2 times daily. 08/31/2018 Adalimumab (HUMIRA PEN) 40 mg/0.8 mL Pen Injector KitIndications:Ankyl osing spondylitis of cervical region Inject 0.8 mLs subcutaneously every 14 days. 4 kit 5 11/20/2017 10/08/2018 ferrous sulfate 325 mg (65 mg iron) Tablet Take 325 mg by mouth daily. 10/07/2023 fish oil-omega-3 fatty acids 1,000 mg Capsule Take 1 g by mouth daily. 02/23/2019 hydrochlorothiazide (HYDRODIURIL) 12.5 mg Tablet Take 12.5 mg by mouth daily. 10/22/2023 simvastatin (ZOCOR) 10 mg Tablet Take 10 mg by mouth nightly. 11/26/2023 losartan (COZAAR) 50 mg Tablet Take 100 mg by mouth daily. 11/26/2023 METOPROLOL SUCCINATE ORAL Take 100 mg by mouth daily. 08/31/2018 ursodiol (ACTIGALL) 300 mg capsule Take 1 capsule by mouth 3 times daily. 270 tablet 3 09/19/2011 04/06/2020 fluticasone (FLONASE) 50 mcg/Actuation nasal spray 2 sprays by Each Nare route daily. 02/07/2021 fluticasone (FLOVENT) 110 mcg/Actuation inhaler Inhale 1-2 puffs into the lungs daily. 02/21/2011 10/07/2023 sulfaSALAzine (AZULFIDINE) 500 mg tablet Take 1,000 mg by mouth 2 times daily. 02/21/2011 07/23/2021 vitamin E 400 unit capsule 800UNIT, PO, Once daily 10/15/2010 02/07/2021 documented as of this encounter Progress Notes * Elizabeth Abreu MD - 03/11/2018 6:10 AM EDT Images from the original note were not included. Gynecology Inpatient Progress Note ID: Kim Funes is a 57 y.o. woman whose PMH is significant for HTN, MÉNDEZ, ulcerative colitis, type 2 diabetes and HLD who is post operative day #1 s/p a total vaginal hysterectomy, uterosacral ligament suspension, anterior repair, and retropubic mid-ureathral sling for pelvic organ prolapseand stress urinary incontinence. EBL 200 ml. Overnight Events: - Successful backfill voiding trial Subjective: Patient is doing very well in the postoperative period. She has ambulated. She is tolerating regular diet without nausea or vomiting. She is tolerating PO oxycodone and tylenol. She is passing flatus. Denies chest pain, shortness of breath, headache, vision changes or calf pain. ROS: All systems are reviewed and are otherwise normal. Physical Exam: Last value Range last 8 hrs Temperature Temp: 37.4 ??C (99.3 ??F) Temp: [37.4 ??C (99.3 ??F)] Heart Rate Heart Rate: 78 Heart Rate: [78] Blood Pressure BP: 110/56 BP: (110-115)/(45-56) Respiratory Rate Resp: 16 Resp: [16] SpO2 SpO2: 93 % SpO2: [93 %-94 %] Intake/Output Summary (Last 24 hours) at 03/11/18 0610 Last data filed at 03/11/18 0605 Gross per 24 hour Intake 3446 ml Output 4565 ml Net -1119 ml UOP ~100 cc/hr overnight Gen: Resting comfortably in bed. NAD. Neuro: Alert and oriented. Cardiac: RRR. No murmurs, rubs, or gallops. Pulm: CTAB. No wheezes, rales, or rhonci. Abd: active BS. Soft. Non tender. No rebound or guarding. Extremities: No lower extremity edema. SCDs in place. Laboratory (Last 24 Hours): None Assessment and Plan Kim Funes is a 57 y.o. female who is POD#1 from a TVH, USLS, anterior repair and retropubic MUS. Patient is doing well in the immediate postoperative period. Please see systems- based assessment below. Neuro: Pain well controlled on toradol, oxycodone, tylenol 325mg. Alert and oriented. - Continue home topomax Cardiovascular: Vital signs wnl. Hemodynamically stable, no evidence of bleeding. - Continue home metoprolol Pulmonary: Adequate spO2 on 2L. No concerns. - Encourage incentive spirometry - Wean O2 PRN GI: Denies nausea, vomiting. Tolerating regular diet. -Advance diet as tolerated. -Zofran prn -Colace : Successful backfill voiding trial. Adequate urine output. -Monitor intake and output FEK: D/c IVF. Tolerating PO intake. INCIDENT COMMANDER: Final pathology report pending. -Follow up in clinic 4-6 weeks postoperatively Endocrine: DM II - sensitive SSI ordered ID: Afebrile, received prophylactic antibiotics preop, no evidence of infection -continue to monitor vital signs. Prophylaxis: SCDs while in bed, encourage ambulation, incentive spirometry Dispo: Anticipate discharge tomorrow Code Status: Full Code Elizabeth Abreu MD PGY-3 03/11/2018 Associated attestation - Liang Fong MD - 03/11/2018 7:37 AM EDT DIVISION FEMALE PELVIC MEDICINE & RECONSTRUCTIVE SURGERY STAFF NOTE I saw Ms. Funes today and reviewed her history. She is Post-operative day #1 from TV, LS, AR. Retropubic MUS, cysto. I have reviewed Dr. Abreu's note above and agree with the history she outlines. I examined the patient and agree with the documented findings and plans outlined above. Pertinent findings include: Passed trial of void Pain well controlled Tolerating PO Meeting routine post-operative milestones and prepared for discharge home All questions answered Liang Fong MD Division of Female Pelvic Medicine & Reconstructive Surgery * Chantell Moy RN - 03/10/2018 1:35 PM EDT Patient Name: Kim Funes Patient Age: 57 y.o. Birthdate: 1960 Admit date: 03/10/2018 Attending Physician: Liang Fong MD Pt arrived from PACU via bed. Pt connected to room monitor. Pt A&Ox4. Peripad C/D/I. No numbness or tingling noted in extremities. Pt rates pain 3/10 at this time. PIV connected to MIVF. Pt's family in waiting room, will call them to bedside once done assessing pt. Call light explained. See assessment for more. * Jason Stapleton MD - 03/10/2018 1:30 PM EDT Images from the original note were not included. Gynecology Post-Operative Check Note ID: Kim Funes is a 57 y.o. woman whose PMH is significant for HTN, MÉNDEZ, ulcerative colitis, type 2 diabetes and HLD who is post operative day # 0 s/p a total vaginal hysterectomy, uterosacral ligament suspension, anterior repair, and retropubic mid-ureathral sling for pelvic organ prolapse and stress urinary incontinence. EBL 200 ml. Intraoperative Findings: - Normal tubes and ovaries - No urethral or bladder injury and bilateral ureteral efflux seen on cystoscopy. Subjective: Patient is doing very well in the postoperative period. She has not yet ambulated. She is tolerating clear liquids without nausea or vomiting. She is tolerating PO oxycodone and tylenol. She reports that most of her pain is in her pelvis and feels crampy. Not yet passing flatus. Denies chest pain, shortness of breath, headache, vision changes or calf pain. ROS: All systems are reviewed and are otherwise normal. Physical Exam: Last value Range last 8 hrs Temperature Temp: 37 ??C (98.6 ??F) Temp: [36.7 ??C (98.1 ??F)-37 ??C (98.6 ??F)] Heart Rate Heart Rate: 60 Heart Rate: [50-82] Blood Pressure BP: 118/57 BP: (113-144)/(48-65) Respiratory Rate Resp: 16 Resp: [10-21] SpO2 SpO2: 98 % SpO2: [93 %-100 %] Intake/Output Summary (Last 24 hours) at 03/10/18 1417 Last data filed at 03/10/18 1300 Gross per 24 hour Intake 1300 ml Output 1615 ml Net -315 ml UOP at >100 ml/hr x the last 2 recorded hours Gen: Resting comfortably in bed. NAD. Neuro: Alert and oriented. Cardiac: RRR. No murmurs, rubs, or gallops. Pulm: CTAB. No wheezes, rales, or rhonci. Abd: hypoactive BS. Soft. Non tender. No rebound or guarding. : Stapleton draining pyridium stained urine. Extremities: No lower extremity edema. SCDs in place. Laboratory (Last 24 Hours): None Frozen Section: Not applicable Final Pathology: Pending Assessment and Plan Kim Funes is a 57 y.o. female who is POD#0 from a TVH, USLS, anterior repair and retropubic MUS. Patient is doing well in the immediate postoperative period. Please see systems- based assessment below. Neuro: Pain well controlled on toradol, oxycodone, tylenol 325mg. Alert and oriented. - Continue home topomax Cardiovascular: Vital signs wnl. Hemodynamically stable, no evidence of bleeding. - Continue home metoprolol Pulmonary: Adequate spO2 on 2L. No concerns. - Encourage incentive spirometry - Wean O2 PRN GI: Denies nausea, vomiting. Tolerating clear liquids. -Advance diet as tolerated. -Zofran prn -Colace : Stapleton is in place draining pyridium urine. Adequate urine output. -Plan for backfill trial on POD1 @0500. -Monitor intake and output FEK: IVF: LR @100 ml/hr. Tolerating PO intake. -Wean IVF when tolerating full diet INCIDENT COMMANDER: Final pathology report pending. -Follow up in clinic 4-6 weeks postoperatively Endocrine: DM II - sensitive SSI ordered ID: Afebrile, received prophylactic antibiotics preop, no evidence of infection -continue to monitor vital signs. Prophylaxis: SCDs while in bed, encourage ambulation, incentive spirometry Dispo: Anticipate discharge tomorrow Code Status: Full Code Jason Stapleton MD PGY-2 03/10/2018 Gynecology Service Pager: [phone] (M-F [phone]), otherwise page [phone] * Aleta Croft, RN - 03/10/2018 11:25 AM EDT Pt arrived from OR to PACU. Placed on monitor and alarms adjusted. Received report.1225: infor visit. 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 Fong on February 20, 2018. (x) Condition unchanged since H&P originally performed. Interval Note: The patient is doing well this morning and has no complaints. We resigned the consent form this morning and confirmed the following procedures: vaginal hysterectomy, uterosacral ligament suspension, possible ant/post repair and MUS. She has never had a problem with narcotics in the past as far as side effects and is unable to take ibuprofen due to chest pain. She agrees to full code status. Ms. Funes also reports she takes metformin for prediabetes and started a year or two ago. She has her HgA1c checked by her pcp who has retired and is unsure of the most recent level. She last received her Humira about two weeks ago. Plan to proceed. A copy of this document will be sent to the patient's Primary Care Physician and/or Referring Physician. VICTORINA BECKER MD 03/10/2018 documented in this encounter Miscellaneous Notes * Plan of Care - Chantell Moy RN - 03/11/2018 8:45 AM EDT Problem: Patient Care Overview Goal: Plan of Care Review Outcome: Outcome (s) achieved Date Met: 03/11/18 03/11/18 0844 Coping/Psychosocial Plan Of Care Reviewed With patient Plan of Care Review Progress progress toward functional goals as expected The patient has met discharge criteria per policy. Discharge instruction reviewed and patient discharged to responsible adult. Patient???s pain level has been assessed and patient states that her level is tolerable at this time. The After Visit Summary (AVS) and accompanying hand-outs have been reviewed with the patient; the patient verbalizes understanding at this time. Opportunity for clarification provided. All new medications have been reviewed with the patient and the appropriate hand-outs have been given to the patient. Reportable sign and symptoms have been reviewed with patient. Goal: Fall Prevention-Safe Patient Handling Outcome: Outcome (s) achieved Date Met: 03/11/18 03/11/18 0726 03/11/18 0800 Activity Activity Type ambulated in medina -- Activity Assistance Provided independent -- Assistive Device Utilized none -- Soler Fall Risk History of Falling 0 -- Secondary Diagnosis 15 -- Ambulatory Aids 0 -- Intravenous Therapy/Heparin/Saline Lock 20 -- Gait/Transferring 0 -- Mental Status 0 -- Score 35 -- OTHER Soler Fall Risk Med -- Restraint Interventions Safety Promotion/Fall Prevention safety round/check completed;activity supervised;nonskid shoes/slippers when out of bed -- Positioning Body Position -- independent Goal: Infection Control Outcome: Outcome (s) achieved Date Met: 03/11/18 03/11/18 0726 Safety Interventions Isolation Precautions standard precautions maintained Infection Prevention environmental surveillance performed;equipment surfaces disinfected;personal protective equipment utilized;rest/sleep promoted;single patient room provided;visitors restricted/screened Coping Strategies Supportive Measures active listening utilized;verbalization of feelings encouraged;self-responsibility promoted;self-reflection promoted;self-care encouraged Goal: Discharge Needs Assessment Outcome: Outcome (s) achieved Date Met: 03/11/18 03/11/18 0433 Discharge Needs Assessment Concerns To Be Addressed no discharge needs identified Readmission Within The Last 30 Days no previous admission in last 30 days Equipment Needed After Discharge none Discharge Disposition home or self-care Current Health Anticipated Changes Related to Illness none Activity/Self Care Review of Systems Equipment Currently Used at Home none Living Environment Transportation Available car;family or friend will provide * Plan of Care - Carmencita Waters RN - 03/11/2018 4:47 AM EDT Problem: Patient Care Overview Goal: Plan of Care Review Outcome: Ongoing (Interventions Implemented as Appropriate) 03/11/18432 Coping/Psychosocial Plan Of Care Reviewed With patient Plan of Care Review Progress progress toward functional goals as expected OUTCOME EVALUATION NOTE: OUTCOME SUMMARY: Kim is a 57 y/o female s/p total vaginal hysterectomy Kim had a good night and rested between care Vitals and physical assessment as documented Her pain is well controled with tylenol and ketorlac She has ambulated, tolerated her diet and voided PLAN MOVING FORWARD: Monitor vitals pain and I&O Encourage/assist w/ ambulation Diet as tolerated Blood glucose monitoring AC/HS Void trial in AM, backfill 300 Cluster care to allow for periods of rest INDIVIDUALIZED FALL PREVENTION INTERVENTIONS: Patient-specific fall risk factors per assessment: [current deficits]: Pt is a low/moderate risk tofall r/t recent surgical procedure, lingering effects of anesthesia and being tethered to IV pole & pulse ox. Assistance [level of assistance required for transfers and ambulation]: Stand by assist as needed Supervision [direct monitoring required during toileting and ADLs]: None, eyes as needed Surveillance [continuous indirect monitoring]: Hourly rounding Patient-specific fall prevention interventions for sensory deficits provided, if applicable: NA CPG GOAL OUTCOME EVALUATION: Goal: Fall Prevention-Safe Patient Handling 03/10/18200403/11/18432 Activity Activity Type activity adjusted per tolerance -- Activity Assistance Provided assistance, stand-by -- Assistive Device Utilized -- none Soler Fall Risk History of Falling 0 -- Secondary Diagnosis 15 -- Ambulatory Aids 0 -- Intravenous Therapy/Heparin/Saline Lock 20 -- Gait/Transferring 0 -- Mental Status 0 -- Score 35 -- OTHER Soler Fall Risk Med -- Restraint Interventions Safety Promotion/Fall Prevention safety round/check completed;nonskid shoes/slippers when out of bed;fall prevention program maintained -- Positioning Body Position independent;supine -- Goal: Infection Control Outcome: Ongoing (Interventions Implemented as Appropriate) 03/10/182004 Safety Interventions Isolation Precautions standard precautions maintained Infection Prevention single patient room provided;rest/sleep promoted;environmental surveillance performed Coping Strategies Supportive Measures active listening utilized;decision-making supported;self- care encouraged Goal: Discharge Needs Assessment Outcome: Ongoing (Interventions Implemented as Appropriate) 03/11/18432 Discharge Needs Assessment Concerns To Be Addressed no discharge needs identified Readmission Within The Last 30 Days no previous admission in last 30 days Equipment Needed After Discharge none Discharge Disposition home or self-care Current Health Anticipated Changes Related to Illness none Activity/Self Care Review of Systems Equipment Currently Used at Home none Living Environment Transportation Available car;family or friend will provide Goal: Interdisciplinary Rounds/Family Conf Outcome: Ongoing (Interventions Implemented as Appropriate) 03/11/18432 Interdisciplinary Rounds/Family Conf Participants nursing;patient * Op Note - Liang Fong MD - 03/10/2018 11:21 AM EDT [facility] Operative Note Patient Name: Kim Funes : [id number] MR#: [id number] Case Date: 03/10/2018 Surgeon: Surgeon(s) and Role: * Liang Fong MD - Primary * Victorina Becker MD * Elizabeth Abreu MD - Resident-Surgeon Chief Preoperative diagnosis: UTERINE PROLAPSE, STRESS URINARY INCONTINENCE Postoperative diagnosis: UTERINE PROLAPSE, STRESS URINARY INCONTINENCE Procedure(s) (LRB): HYSTERECTOMY, VAGINAL, REMOVAL TUBE(S) & OR OVARY(S) (WRVU 15.94) (N/A) COLPORRHAPHY ANTERIOR-POSTERIOR; INC CYSTOURETHROSCOPY (WRVU 14.44) (N/A) URETHRAL SUSPENSION, SLING\FASCIA OR SYNTHETIC (WRVU 12.13) (N/A) COLPOPEXY, VAGINAL, INTRAPERITONEAL APPROACH (WRVU 11.66) (N/A) Anesthesia: General Estimated Blood Loss: * No values recorded between 03/10/2018 8:23 AM and 03/10/2018 10:44 AM * Specimens removed during surgery: Order Name Source Comment Collection Info Order Time SPECIMEN TO PATHOLOGY UTERINE PROLAPSE, STRESS URINARY INCONTINENCE uterus, cervix resection 03/10/2018 9:22 AM Number of tissue samples (in container) 1 Time specimen removed from patient: 9:00 AM Drains: Surgical Closure: Primary Closure - closure of ALL tissue levels during the original surgery regardless of wires, wickes, drains, or other devices extruding through the incision Disposition: awakened from anesthesia, extubated and taken to the recovery room in a stable condition, having suffered no apparent untoward event. Condition: doing well without problems (Please see the Surgical Encounter Summary for any Implant and Specimen details pertinent to this patient.) HPI/Surgical Indications: 57 y.o. woman with stage 2 POP with uterovaginal and anterior vaginal wall involvement plus RADHA requesting surgical repair. Procedure Description: The patient was brought to OR #4. She was positioned in the dorsal lithotomy position after generalanesthesia was induced. She was positioned in what was felt to be a neurologically safe position with her legs in Yellofin stirrups. She received prophylactic antibiotics prior to incision for prophylaxis. She had knee-high intermittent pneumatic compression stockings on throughout the procedure for DVT prophylaxis. Examination under anesthesia was performed. The patient was prepped and draped in the usual fashion. A time-out protocol was adhered to, confirming the patient's identity, planned procedures and safety measures. The hysterectomy was initiated by first infiltrating the cervical portio with 1% lidocaine with [id number] Epinephrine solution. A weighted speculum had been introduced into the vagina and thyroid-Kevin clamps used to grasp the anterior and posterior lips of the cervix. A circumscribing incision was made around the cervical portio through the full thickness of the vaginal wall using cutting currentelectrocautery. The vagina was dissected away from the distal uterosacral and cardinal pedicles with blunt dissection. Posterior colpotomy was performed sharply. Next, the uterosacral ligaments were clamped, divided, and ligated with 2-0 Vicryl transfixion suture. A long-weighted speculum was the placed into the peritoneum posteriorly to protect the rectum. The vesico-vaginal space was developed with a combination of sharp and blunt dissection to reveal the vesico- uterine peritoneal reflection.Anterior colpotomy was performed with sharp dissection. A Breisky retractor was used to displace the bladder and ureters out of harm's way. A Stapleton catheter was inserted using sterile technique. The cardinal ligaments were clamped, divided, and ligated with 2-0 Vicryl transfixion suture. Sequential bites were then taken along the broad ligament, clamping, dividing, and ligating with 2-0 Vicryl transfixion suture. The utero- ovarian ligaments were separately isolated, doubly-clamped, transected and double-ligated with 2-0 Vicryl. The tubes appeared normal and, since she had previously undergone a tubal ligation, the small remnants were adhesed to the pelvic side wall; an additional bilateral salpingectomy was not performed. The ovaries were inspected and appeared normal. All pedicles were inspected for hemostasis. Attention was turned to the placement of the uterosacral vault suspension sutures. Two Breisky retractors were used to protect the rectum and ureter and expose the uterosacral ligaments. A long Allisclamp was used to grasp the left uterosacral ligament at the level of the ischial spine. An 0-PDS suture was passed twice through the ligament and tagged. An additional 0-PDS suture was passed twice through the ligament 1cm cephalad to the first suture and tagged. The same was performed on the contra-lateral side. Using an Allis clamp to grasp the anterior vaginal cuff, there appeared to be persistent laxity (cystocele) at the anterior wall. An anterior colporrhaphy was performed prior to completing the apicalsuspension. The anterior wall was infiltrated with the lidocaine with epinephrine solution. The bladder was sharply dissected away from the anterior wall under direct visualization with the anterior wall everted. A wedge of anterior wall was excised. The deeper tissue at the bladder muscularis was plicated with running 2-0 Vicryl sutures. Next, the vagina was reapproximated with interrupted 2-0 Vicryl sutures. Cystourethroscopy was then performed with a 70-degree cystoscope. While tension was placed on the suspension sutures, free spill of urine with Pyridium dye was seen from both ureteral orifices, and the bladder mucosa appeared normal. The bladder was again drained with a Stapleton catheter. The uterosacral ligament suspension sutures were then placed through the full thickness of the anterior and posterior vaginal abez at the cuff. The packing was removed, and all sutures were tied across the cuff with good elevation of the apex of the vagina. The vaginal cuff was inspected. There was a midline area that still had a small defect, and this was reapproximated with a [id number] 0Vicryl suture in interrupted fashion. After the suspension at the apex, the anterior vaginal wall and vaginal cuff were well supported and hemostatic. Cystourethroscopy was then repeated to confirm ureteral patency. Next, the sling was performed. An 18Fr Stapleton catheter was inserted using sterile technique. The suprapubic area was palpated and the pubic tubercle identified bilaterally. A site 2 cm cephalad was marked bilaterally and stab wound incisions were made. The Space of Retzius, through which the trocarswould pass, was infiltrated with 10 mL of 1% lidocaine with epinephrine on each side. Next, the suburethral vaginal wall was grasped with two Allis clamps. The mid-urethra was identified with aid of a urethral catheter. The mid-urethral vaginal wall was infiltrated with 1% lidocaine with epinephrine, extending out to the sulci bilaterally. A 2 cm vertical incision was in the suburethral vagina and a full thickness dissection performed in the paraurethral space out to the inferior aspect of the pubic symphysis bilaterally. A catheter guide was placed in the Stapleton catheter. The bladder neck was diverted away from the sidethat the Mai retropubic needle and Desara Blue sling were placed by directing the catheter guide and Stapleton to the ipsilateral side. The Mai needle was advanced through the vaginal incision and pierced the urogenital diaphragm. Care was taken to direct the needle to the suprapubic incision by hugging the posterior pubic bone and avoiding straying the needle tip laterally or medially. Once it pierced the suprapubic incision, it was held with a hemostat and a similar procedure was performed on the contralateral side. Cystoscopy was performed with a 70-degree cystoscope with reassuring findings. The mesh was tensioned visually with a clamp resting between the urethra and the sling to ensure a tension-free position. The mesh was deployed by removing the protective plastic coating bilaterally. Once the protective coating was removed, excess mesh was trimmed at the suprapubic incisionsand the right angle clamp was removed, yielding an excellent mid-urethral placement without tension. The vaginal wall was reapproximated with 2-0 Vicryl in a running fashion. The suprapubic skin incisions were reapproximated with DermaBond glue. We evaluated the posterior vaginal wall lastly and found good support with no evidence of rectocele. Decision was made not to perform perineorrhaphy in order to avoid dyspareunia in a relatively young sexually-active woman. Sponge and needle counts were correct at the conclusion of the procedure. Infection Bundle used? No Attestation: Case Date: 03/10/2018 I was present and I participated during the entire procedure (does not need to include opening and closing). Liang Fong MD 03/10/2018 * Brief Op Note - Liang Fong MD - 03/10/2018 10:48 AM EDT Brief Operative Note Patient Name: Kim Funes : [id number] MR#: [id number] Case Date: 03/10/2018 Surgeon: Surgeon(s) and Role: * Liang Fong MD - Primary * Victorina Becker MD * Elizabeth Abreu MD - Resident-Surgeon Chief Preoperative diagnosis: UTERINE PROLAPSE, STRESS URINARY INCONTINENCE Postoperative diagnosis: UTERINE PROLAPSE, STRESS URINARY INCONTINENCE Procedure(s) (LRB): HYSTERECTOMY, VAGINAL, REMOVAL TUBE(S) & OR OVARY(S) (WRVU 15.94) (N/A) COLPORRHAPHY ANTERIOR-POSTERIOR; INC CYSTOURETHROSCOPY (WRVU 14.44) (N/A) URETHRAL SUSPENSION, SLING\FASCIA OR SYNTHETIC (WRVU 12.13) (N/A) COLPOPEXY, VAGINAL, INTRAPERITONEAL APPROACH (WRVU 11.66) (N/A) Anesthesia: General Findings: Normal tubes and ovaries. No bladder or urethral injury. Good spill of urine from both ureteral orifices. Complications: None Intake: 750cc crystalloid Output: Estimated Blood Loss: 200cc Urine Output:: 75 mL Other Output: (no other output recorded) Drains: Stapleton Specimens removed during surgery: Order Name Source Comment Collection Info Order Time SPECIMEN TO PATHOLOGY UTERINE PROLAPSE, STRESS URINARY INCONTINENCE uterus, cervix resection 03/10/2018 9:22 AM Number of tissue samples (in container) 1 Time specimen removed from patient: 9:00 AM Disposition: awakened from anesthesia, extubated and taken to the recovery room in a stable condition, having suffered no apparent untoward event. Condition: doing well without problems Attestation: Case Date: 03/10/2018 I was present and I participated during the entire procedure (does not need to include opening and closing). (Please see the Surgical Encounter Summary for any Implant and Specimen details pertinent to this patient.) documented in this encounter Plan of Treatment Upcoming Encounters Date Type Department Care Team (Late st Contact Info) Description 04/19/2024 10:00 AM EDT Hospital Encounter Non-[place] [address] Arrived 04/29/2024 9:50 AM EDT Appointment MRI at [place] [address] Luis Alfredo eVlazquez MD [facility] [place] [address] 04/29/2024 9:50 AM EDT Appointment MRI at [address] Luis Alfredo Velazquez MD [facility] [address] 06/07/2024 2:30 PM EDT TH Visit (TeleHealth) Gastroenterology at [place] [address] Dajuan Rachel MD [facility] [place] [address] 07/02/2024 2:00 PM EDT Appointment Non-Invasive Cardiology Lab [place] [phone] Luis Alfredo Velazquez MD [facility] [place] [address] 07/02/2024 4:40 PM EDT Office Visit Cardiology at [address] [place] [address] Luis Alfredo Velazquez MD [facility] [place] [address] documented as of this encounter Procedures Procedure Name Priority Date/Time Associated Diagnosis Comments CARRIER OPERATOR SCAN 03/12/2018 12:00 AM EDT POCT GLUCOSE Routine 03/11/2018 7:16 AM EDT POCT GLUCOSE Routine 03/10/2018 9:20 PM EDT POCT GLUCOSE Routine 03/10/2018 4:39 PM EDT POCT GLUCOSE Routine 03/10/2018 11:23 AM EDT SPECIMEN TO PATHOLOGY Routine 03/10/2018 9:22 AM EDT SURGICAL PATHOLOGY REPORT Routine 03/10/2018 9:00 AM EDT COLPOPEXY, VAGINAL, INTRAPERITONEAL APPROACH (WRVU 11.66) 03/10/2018 7:39 AM EDT UTERINE PROLAPSE, STRESS URINARY INCONTINENCE URETHRAL SUSPENSION, SLING\FASCIA OR SYNTHETIC (WRVU 12.13) 03/10/2018 7:39 AM EDT UTERINE PROLAPSE, STRESS URINARY INCONTINENCE COLPORRHAPHY ANTERIOR-POSTERIOR; INC CYSTOURETHROSCOPY (WRVU 13.25) 03/10/2018 7:39 AM EDT UTERINE PROLAPSE, STRESS URINARY INCONTINENCE HYSTERECTOMY, VAGINAL, REMOVAL TUBE(S) & OR OVARY(S) (WRVU 15.94) 03/10/2018 7:39 AM EDT UTERINE PROLAPSE, STRESS URINARY INCONTINENCE POCT GLUCOSE Routine 03/10/2018 6:28 AM EDT documented in this encounter Results * SCAN DOC: CARRIER OPERATOR (03/12/2018 12:00 AM EDT) Anatomical Region Laterality Modality Other Narrative 03/12/2018 12:00 AM EDT Ordered by an unspecified provider. Scanning Provider MEDIA MGR SCAN EXT O RDR/RSLT * POCT Glucose (03/11/2018 7:16 AM EDT) POC Glucose 121 65 - 199 mg/dL [facility] Comment: Supplemental ranges: <140 mg/dL before meals <180 mg/dL all other times of the day Blood specimen (specimen) 03/11/2018 7:16 AM EDT 03/11/2018 7:16 AM EDT Liang Fong MD POINT OF CARE TEST O IRMA Performing Organization Address [facility] Co de Phone Number [facility] [place] [address] * POCT Glucose (03/10/2018 9:20 PM EDT) POC Glucose 107 65 - 199 mg/dL [facility] Comment: Supplemental ranges: <140 mg/dL before meals <180 mg/dL all other times of the day Blood specimen (specimen) 03/10/2018 9:20 PM EDT 03/10/2018 9:20 PM EDT Liang Fong MD POINT OF CARE TEST O IRMA Performing Organization Address [facility] Co de Phone Number [facility] [place] [address] * POCT Glucose (03/10/2018 4:39 PM EDT) POC Glucose 110 65 - 199 mg/dL [facility] Comment: Supplemental ranges: <140 mg/dL before meals <180 mg/dL all other times of the day Blood specimen (specimen) 03/10/2018 4:39 PM EDT 03/10/2018 4:39 PM EDT Liang Fong MD POINT OF CARE TEST O IRMA Performing Organization Address [facility]/ZIP Co de Phone Number [facility] [place] [address] * POCT Glucose (03/10/2018 11:23 AM EDT) POC Glucose 137 65 - 199 mg/dL [facility] Comment: Supplemental ranges: <140 mg/dL before meals <180 mg/dL all other times of the day Blood specimen (specimen) 03/10/2018 11:23 AM EDT 03/10/2018 11:23 AM EDT Liang Fong MD POINT OF CARE TEST O RDERABLES Performing Organization Address [facility] Co de Phone Number [facility] [place] [address] * Specimen to Pathology (03/10/2018 9:22 AM EDT) AP Specimen 03/10/2018 9:22 AM EDT 03/10/2018 11:02 AM EDT Narrative [facility] - 03/10/2018 11:03 AM EDT Specimen requisition ordered. ??Separate Pathology report to follow Resulting Agency Comment Spec In Lab Liang Fong MD PATHOLOGY/CYTOLOGY O RDSETH Performing Organization Address [facility] Co de Phone Number [facility] [place] [address] * Surgical Pathology Report (03/10/2018 9:00 AM EDT) FINAL DIAGNOSIS (AP) [id number] ? Location: [facility]; 14; A The signing pathologist has (i) examined the relevant preparation(s) for the specimen(s) and (ii) rendered or confirmed the diagnosis(es). . ?Surgical Pathology DIAGNOSIS Uterus (hysterectomy for prolapse): ?? 1. Intramural leiomyomas. ?? 2. Benign endometrial polyp. ?? 3. Atrophic endometrium. ?? 4. Acute and chronic cervicitis, squamous metaplasia, and ?Nabothian cysts. CR-0 Electronically signed by: ??Lawrence HYMAN, Marc Hayes Verified: ??03/16/2018 ?Pathologist Performed at: ??-[facility] Dept. of Pathology, [place], [place] CLINICAL INFORMATION Specimen Submitted: A - Uterus, cervix Clinical History and Diagnosis: Uterine prolapse, stress urinary incontinence SPECIMEN PROCESSING A - Labeled/Fixative : Uterus, cervix; fresh. Qty/Size/Weight: Single, 6.2 x 4.1 x 4.0 cm, 50.0 grams (overall). Specimen Description: ?? Intact uterus and cervix. UTERUS AND CERVIX Serosa: Brown, smooth and glistening. Endometrium: Averages 0.1 cm in thickness with a 0.5 cm polyp, posteriorly. Myometrium: averages 1.6 cm in thickness and contains two light-brown, firm, well- circumscribed nodules, 0.9 cm in greatest dimension, each. Cervix: The ectocervix is smooth and glistening and has an unremarkable endocervical junction. The endocervical canal is not patent to forceps. SECTIONS/PROCESS ING: (1) posterior cervix; (2) anterior cervix; (3) posterior endomyometrium, including polyp; (4) anterior endomyometrium; (5) myometrial nodules. (R5) nsm 03/16/2018 2:03 PM EDT [facility] 03/10/2018 9:00 AM EDT Liang Fong MD PATHOLOGY/CYTOLOGY O RDERABLES [facility] [place] [address] * POCT Glucose (03/10/2018 6:28 AM EDT) POC Glucose 107 65 - 199 mg/dL [facility] Comment: Supplemental ranges: <140 mg/dL before meals <180 mg/dL all other times of the day Blood specimen (specimen) 03/10/2018 6:28 AM EDT 03/10/2018 6:28 AM EDT Liang Fong MD POINT OF CARE TEST O RDERABLES [facility] [place] [address] documented in this encounter Visit Diagnoses Diagnosis Uterovaginal prolapse, incomplete Urinary, incontinence, stress female Female stress incontinence Prolapse of female pelvic organs Unspecified genital prolapse documented in this encounter Admitting Diagnoses Diagnosis Prolapse of female pelvic organs Unspecified genital prolapse documented in this encounter Administered Medications Inactive Administered Medications - up to 3 most recent administrations Medication Order MAR Action Action Date Dose Rate Site acetaminophen (TYLENOL) tablet 325 mg 325 mg, Oral, EVERY 6 HOURS SCHEDULED, First dose on Fri03/10/18 at 1400, Until Discontinued, - If ordered with other PRN pain medications give Ibuprofen first, then acetaminophen, then additional agents according to the pain scale. - Not to exceed 4g in 24 hours, Routine Given 03/11/2018 5:48 AM EDT 325 mg Given 03/11/2018 12:06 AM EDT 325 mg Given 03/10/2018 5:56 PM EDT 325 mg dextrose 50% IV syringe 25-50 mL 25-50 mL (12.5-25 g), Intravenous, EVERY 1 HOUR PRN, Starting on Fri03/10/18 at 1332, Until Fri03/11/18 at 1054, Low blood sugar, For BG 50-70: 120 mL Juice or Regular (not diet) soda OR 12.5 gram (25 mL) Dextrose 50% IV OR, if no IV access, 1 mg Glucagon IM. Recheck BG in 30 minutes. May repeat juice, dextrose or glucagon once per episode For BG less than 50: 240 mL Juice or Regular (not diet) soda OR 25 grams (50 mL) Dextrose 50% IV OR, if no IV access, 1 mg Glucagon IM. Recheck BG in 30 minutes. May repeat juice, dextrose, or glucagon once per episode. To avoid extravasation, push Dextrose 50% SLOWLY (3 mL over 1 minute) in a patent, running IV, preferably a central line. For persistent hypoglycemia, consider longer-acting treatment for the duration of the active insulin., Routine docusate sodium (COLACE) capsule 100 mg 100 mg, Oral, 2 TIMES DAILY, First dose on Fri03/10/18 at 1400, Until Discontinued, Routine Given 03/11/2018 8:24 AM EDT 100 mg Given 03/10/2018 8:24 PM EDT 100 mg Given 03/10/2018 1:40 PM EDT 100 mg glucagon (human recombinant) injection SolR 1 mg 1 mg, Intramuscular, EVERY 1 HOUR PRN, Starting on Fri03/10/18 at 1332, Until Fri03/11/18 at 1054, Low blood sugar, For BG 50-70: 120 mL Juice or Regular (not diet) soda OR 12.5 gram (25 mL) Dextrose 50% IV OR, if no IV access, 1 mg Glucagon IM. Recheck BG in 30 minutes. May repeat juice, dextrose or glucagon once per episode For BG less than 50: 240 mL Juice or Regular (not diet) soda OR 25 grams (50 mL) Dextrose 50% IV OR, if no IV access, 1 mg Glucagon IM. Recheck BG in 30 minutes. May repeat juice, dextrose, or glucagon once per episode. To avoid extravasation, push Dextrose 50% SLOWLY (3 mL over 1 minute) in a patent, running IV, preferably a central line. For persistent hypoglycemia, consider longer-acting treatment for the duration of the active insulin., Routine HYDROmorphone (DILAUDID) injection 0.2-0.4 mg 0.2-0.4 mg, Intravenous, EVERY 5 MIN PRN, Starting on Fri03/10/18 at 1129, Until Fri03/10/18 at 1330, Pain, Give 0.2 mg every 5 minutes PRN for mild to moderate pain (1-5) Give 0.4 mg every 5 minutes PRN for moderate to severe pain (6-10). Hold for respiratory rate less than 10 per minute. Maximum dose 4 mg over one hour. If multiple pain medications are ordered, start with hydromorphone or morphine and use fentanyl for breakthrough pain., PACU Recovery, Routine Given 03/10/2018 12:37 PM EDT 0.2 mg Given 03/10/2018 11:57 AM EDT 0.2 mg Given 03/10/2018 11:52 AM EDT 0.2 mg insulin lispro (HumaLOG) VIAL injection 1-4 Units 1-4 Units, Subcutaneous, 3 TIMES DAILY BEFORE MEALS, First dose on Fri03/10/18 at 1630, Until Discontinued, CORRECTION BOLUS Sensitive to insulin lean patient or total daily dose of all insulin needed to achieve glycemic control less than 30 units BG 140 - 160 Give 1 unit BG 161 - 200 Give 2 units BG 201 - 240 Give 3 units BG greater than 240, give 4 units and recheck BG in 2 hours. If less than 240 after two hours, give no insulin and resume prior schedule. If BG remains greater than 240, repeat 4 units (no more than three times) & call for new basal insulin orders. DO NOT hold if NPO, unless specifically told to do so., Routine ketorolac (TORADOL) injection 15 mg 15 mg, Intravenous, EVERY 6 HOURS SCHEDULED, 5 doses, First dose on Fri03/10/18 at 1200, Last dose on Fri03/11/18 at 1200, Routine Given 03/11/2018 5:49 AM EDT 15 mg Given 03/11/2018 12:06 AM EDT 15 mg Given 03/10/2018 4:39 PM EDT 15 mg lactated Ringers infusion 1,000 mL 1,000 mL, at 100 mL/hr, Intravenous, CONTINUOUS, Starting on Fri03/10/18 at 1145, Until Fri03/11/18 at 0616 New Bag 03/10/2018 6:41 PM EDT 1,000 mLs 100 m L/hr New Bag 03/10/2018 11:37 AM EDT 1,000 mLs 100 mL/hr New Bag 03/10/2018 7:42 AM EDT metoprolol succinate (TOPROL-XL) XL tablet 100 mg 100 mg, Oral, DAILY, First dose on Fri03/11/18 at 0900, Until Discontinued Given 03/11/2018 8:24 AM EDT 100 mg oxyCODONE (ROXICODONE) immediate release tablet 5-10 mg 5-10 mg, Oral, EVERY 4 HOURS PRN, Starting on Fri03/10/18 at 1127, Until Fri03/11/18 at 1054, Pain, If pain 4-6/10 give 5mg, If pain 7-10/10 give 10 mg, Routine Given 03/11/2018 8:28 AM EDT 5 mg Given 03/10/2018 12:36 PM EDT 5 mg phenazopyridine (PYRIDIUM) tablet 200 mg 200 mg, Oral, ONCE, On Fri03/10/18 at 0645, 1 dose, Day of Surgery (Day of Procedure) Given 03/10/2018 6:30 AM EDT 200 mg sodium chloride 0.9 % flush 5 mL 5 mL, Intravenous, 2 TIMES DAILY, First dose on Fri03/10/18 at 1400, Until Discontinued, Routine Given 03/10/2018 8:24 PM EDT 5 mLs topiramate (TOPAMAX) sprinkle capsule 50 mg 50 mg, Oral, 2 TIMES DAILY, First dose on Fri03/10/18 at 2100, Until Discontinued, Routine Given 03/11/2018 8:25 AM EDT 50 mg Given 03/10/2018 8:24 PM EDT 50 mg documented in this encounter Active and Recently Administered Medications Times are shown in EDT. Scheduled Medication Order 03/09/2018 03/10/2018 03/11/2018 acetaminophen (TYLENOL) tablet 325 mg 325 mg, Oral, EVERY 6 HOURS SCHEDULED, First dose on Fri03/10/18 at 1400, Until Discontinued, - If ordered with other PRN pain medications give Ibuprofen first, then acetaminophen, then additional agents according to the pain scale. - Not to exceed 4g in 24 hours, Routine 1340 (Given - Provider: Chantell Moy RN)1756 (Given - Provider: Chantell Moy RN) 0006 (Given - Provider: Carmencita Waters RN)0548 (Given - Provider: Carmencita Waters, FRANCESCA) clindamycin (CLEOCIN) 900mg in dextrose 5% 50mL (COMPLETED) 900 mg, Intravenous, ONCE, 1 dose, On Fri03/10/18 at 0645, Administer over 30 Minutes, Give over 30-60 minutes. Do not exceed 30mg/minute. Redose every 6 hours if CrCl is greater than 20. Redose every 6 hours if CrCl is less than 20., Day of Surgery (Day of Procedure), Indication for (Active or Suspected): Prophylaxis 0810 (Given - Provider: Alexis Horton MD) docusate sodium (COLACE) capsule 100 mg 100 mg, Oral, 2 TIMES DAILY, First dose on Fri03/10/18 at 1400, Until Discontinued, Routine 1340 (Given - Provider: Chantell Moy RN)2024 (Given - Provider: Carmencita Waters RN) 0824 (Given - Provider: Chantell Moy RN) gentamicin (GARAMYCIN) 360 mg in sodium chloride 0.9% 109 mL (COMPLETED) 360 mg, Intravenous, ONCE, 1 dose, On Fri03/10/18 at 0645, Administer over 60 Minutes, Consider alternative if CrCl is less than 20 or between 20-50., Day of Surgery (Day of Procedure), Indication for (Active or Suspected): Prophylaxis 08 (Given - Provider: Alexis Horton MD) insulin lispro (HumaLOG) VIAL injection 1-4 Units(Linked Group 1) 1-4 Units, Subcutaneous, 3 TIMES DAILY BEFORE MEALS, First dose on Fri03/10/18 at 1630, Until Discontinued, CORRECTION BOLUS Sensitive to insulin lean patient or total daily dose of all insulin needed to achieve glycemic control less than 30 units BG 140 - 160 Give 1 unit BG 161 - 200 Give 2 units BG 201 - 240 Give 3 units BG greater than 240, give 4 units and recheck BG in 2 hours. If less than 240 after two hours, give no insulin and resume prior schedule. If BG remains greater than 240, repeat 4 units (no more than three times) & call for new basal insulin orders. DO NOT hold if NPO, unless specifically told to do so., Routine 1630 (Not Given - Provider: Chantell Moy RN - Reason: Order parameters not met) 0730 (Not Given - Provider: Chantell Moy RN - Reason: Order parameters not met) ketorolac (TORADOL) injection 15 mg 15 mg, Intravenous, EVERY 6 HOURS SCHEDULED, 5 doses, First dose on Fri03/10/18 at 1200, Last dose on Fri03/11/18 at 1200, Routine 1200 (Not Given - Provider: Chantell Moy RN - Reason: See comment - Comment: given at 1050)1639 (Given - Provider: Chantell Moy RN) 0006 (Given - Provider: Carmencita Waters RN)0549 (Given - Provider: Carmencita Waters RN) metoprolol succinate (TOPROL-XL) XL tablet 100 mg 100 mg, Oral, DAILY, First dose on Fri03/11/18 at 0900, Until Discontinued 0824 (Given - Provid er: Chantell Moy RN) phenazopyridine (PYRIDIUM) tablet 200 mg (COMPLETED) 200 mg, Oral, ONCE, On Fri03/10/18 at 0645, 1 dose, Day of Surgery (Day of Procedure) 0630 (Given - Provider: Nayana Martinez, FRANCESCA) sodium chloride 0.9 % flush 5 mL 5 mL, Intravenous, 2 TIMES DAILY, First dose on Fri03/10/18 at 1400, Until Discontinued, Routine 1400 (Not Given - Provider: Chantell Moy RN - Reason: See comment - Comment: iv infusing)2023 (Given - Provider: Carmencita Waters RN) 0900 (Not Given - Provider: Chantell Moy RN - Reason: See comment - Comment: no iv access) topiramate (TOPAMAX) sprinkle capsule 50 mg 50 mg, Oral, 2 TIMES DAILY, First dose on Fri03/10/18 at 2100, Until Discontinued, Routine 2023 (Given - Provider: Carmencita Waters RN) 0825 (Given - Provider: Chantell Moy RN) Continuous Medication Order 03/09/2018 03/10/2018 03/11/2018 lactated Ringers infusion 1,000 mL (CANCELED) 1,000 mL, at 100 mL/hr, Intravenous, CONTINUOUS, Starting on Fri03/10/18 at 1145, Until Fri03/11/18 at 0616 0742 (New Bag - Provider: Alexis Horton MD)1101 (Stopped - Provider: Alexis Horton MD)1137 (New Bag - Provider: Aleta Croft RN)1841 (New Bag - Provider: Chantell Moy RN) 0624 (Stopped - Provider: Carmencita Waters RN) PRN Medication Order 03/09/2018 03/10/2018 03/11/2018 dextrose 50% IV syringe 25-50 mL(Linked Group 2) 25-50 mL (12.5-25 g), Intravenous, EVERY 1 HOUR PRN, Starting on Fri03/10/18 at 1332, Until Fri03/11/18 at 1054, Low blood sugar, For BG 50-70: 120 mL Juice or Regular (not diet) soda OR 12.5 gram (25 mL) Dextrose 50% IV OR, if no IV access, 1 mg Glucagon IM. Recheck BG in 30 minutes. May repeat juice, dextrose or glucagon once per episode For BG less than 50: 240 mL Juice or Regular (not diet) soda OR 25 grams (50 mL) Dextrose 50% IV OR, if no IV access, 1 mg Glucagon IM. Recheck BG in 30 minutes. May repeat juice, dextrose, or glucagon once per episode. To avoid extravasation, push Dextrose 50% SLOWLY (3 mL over 1 minute) in a patent, running IV, preferably a central line. For persistent hypoglycemia, consider longer-acting treatment for the duration of the active insulin., Routine glucagon (human recombinant) injection SolR 1 mg(Linked Group 2) 1 mg, Intramuscular, EVERY 1 HOUR PRN, Starting on Fri03/10/18 at 1332, Until Fri03/11/18 at 1054, Low blood sugar, For BG 50-70: 120 mL Juice or Regular (not diet) soda OR 12.5 gram (25 mL) Dextrose 50% IV OR, if no IV access, 1 mg Glucagon IM. Recheck BG in 30 minutes. May repeat juice, dextrose or glucagon once per episode For BG less than 50: 240 mL Juice or Regular (not diet) soda OR 25 grams (50 mL) Dextrose 50% IV OR, if no IV access, 1 mg Glucagon IM. Recheck BG in 30 minutes. May repeat juice, dextrose, or glucagon once per episode. To avoid extravasation, push Dextrose 50% SLOWLY (3 mL over 1 minute) in a patent, running IV, preferably a central line. For persistent hypoglycemia, consider longer-acting treatment for the duration of the active insulin., Routine HYDROmorphone (DILAUDID) injection 0.2 mg 0.2 mg, Intravenous, ONCE PRN, 1 dose, Starting on Fri03/10/18 at 1332, Until Fri03/11/18 at 1054, Pain, PRN for Severe Pain (7-10) or if unable to take P.O. medication, PRN for Severe Pain (7-10) or if unable to take P.O. medication, Routine HYDROmorphone (DILAUDID) injection 0.2-0.4 mg (CANCELED) 0.2-0.4 mg, Intravenous, EVERY 5 MIN PRN, Starting on Fri03/10/18 at 1129, Until Fri03/10/18 at 1330, Pain, Give 0.2 mg every 5 minutes PRN for mild to moderate pain (1-5) Give 0.4 mg every 5 minutes PRN for moderate to severe pain (6-10). Hold for respiratory rate less than 10 per minute. Maximum dose 4 mg over one hour. If multiple pain medications are ordered, start with hydromorphone or morphine and use fentanyl for breakthrough pain., PACU Recovery, Routine 1152 (Given - Provider: Aleta Croft RN)1157 (Given - Provider: Aleta Croft RN)1237 (Given - Provider: Aleta Croft RN) lidocaine (XYLOCAINE) 10 mg/mL (1 %) injection 3 mg 3 mg (0.3 mL), Subcutaneous, ONCE PRN, 1 dose, Starting on Fri03/10/18 at 1332, Until Fri03/11/18 at 1054, for discomfort with PIV insertion, Routine lidocaine-EPINEPHrine 1 %-1:200,000 injection (CANCELED) ONCE PRN, Starting on Fri03/10/18 at 1025, Until Fri03/11/18 at 1054, Intra-Operative (Intra-Procedure), Routine 1025 (Given - Provider: Liang Fong MD) oxyCODONE (ROXICODONE) immediate release tablet 5-10 mg 5-10 mg, Oral, EVERY 4 HOURS PRN, Starting on Fri03/10/18 at 1127, Until Fri03/11/18 at 1054, Pain, If pain 4-6/10 give 5mg, If pain 7-10/10 give 10 mg, Routine 1236 (Given - Provider: Aleta Croft RN) 0828 (Given - Provider: Chantell Moy RN) sodium chloride 0.9 % flush 5-20 mL 5-20 mL, Intravenous, EVERY 1 MIN PRN, Starting on Fri03/10/18 at 1332, Until Fri03/11/18 at 1054, flush, Flush pertains to all indwelling lines. Flush per protocol found in the job aid using the link provided on this medication record., Routine Linked Groups Order Group 1: POCT Fingerstick Glucose (CANCELED) Routine, 4 TIMES DAILY BEFORE MEALS & AT BEDTIME, First occurrence on Fri03/10/18 at 1700, Until Specified, Consider choosing FOUR TIMES A DAY BEFORE MEALS AND AT BEDTIME as frequency for: Patients who have good hypoglycemia awareness: -Patients who are eating meals during the day and sleeping at night -Patient who are otherwise stable And insulin lispro (HumaLOG) VIAL injection 1-4 UnitsJump to med 1-4 Units, Subcutaneous, 3 TIMES DAILY BEFORE MEALS, First dose on Fri03/10/18 at 1630, Until Discontinued, CORRECTION BOLUS Sensitive to insulin lean patient or total daily dose of all insulin needed to achieve glycemic control less than 30 units BG 140 - 160 Give 1 unit BG 161 - 200 Give 2 units BG 201 - 240 Give 3 units BG greater than 240, give 4 units and recheck BG in 2 hours. If less than 240 after two hours, give no insulin and resume prior schedule. If BG remains greater than 240, repeat 4 units (no more than three times) & call for new basal insulin orders. DO NOT hold if NPO, unless specifically told to do so., Routine Group 2: dextrose 50% IV syringe 25-50 mLJump to med 25-50 mL (12.5-25 g), Intravenous, EVERY 1 HOUR PRN, Starting on Fri03/10/18 at 1332, Until Fri03/11/18 at 1054, Low blood sugar, For BG 50-70: 120 mL Juice or Regular (not diet) soda OR 12.5 gram (25 mL) Dextrose 50% IV OR, if no IV access, 1 mg Glucagon IM. Recheck BG in 30 minutes. May repeat juice, dextrose or glucagon once per episode For BG less than 50: 240 mL Juice or Regular (not diet) soda OR 25 grams (50 mL) Dextrose 50% IV OR, if no IV access, 1 mg Glucagon IM. Recheck BG in 30 minutes. May repeat juice, dextrose, or glucagon once per episode. To avoid extravasation, push Dextrose 50% SLOWLY (3 mL over 1 minute) in a patent, running IV, preferably a central line. For persistent hypoglycemia, consider longer-acting treatment for the duration of the active insulin., Routine Or glucagon (human recombinant) injection SolR 1 mgJump to med 1 mg, Intramuscular, EVERY 1 HOUR PRN, Starting on Fri03/10/18 at 1332, Until Fri03/11/18 at 1054, Low blood sugar, For BG 50-70: 120 mL Juice or Regular (not diet) soda OR 12.5 gram (25 mL) Dextrose 50% IV OR, if no IV access, 1 mg Glucagon IM. Recheck BG in 30 minutes. May repeat juice, dextrose or glucagon once per episode For BG less than 50: 240 mL Juice or Regular (not diet) soda OR 25 grams (50 mL) Dextrose 50% IV OR, if no IV access, 1 mg Glucagon IM. Recheck BG in 30 minutes. May repeat juice, dextrose, or glucagon once per episode. To avoid extravasation, push Dextrose 50% SLOWLY (3 mL over 1 minute) in a patent, running IV, preferably a central line. For persistent hypoglycemia, consider longer-acting treatment for the duration of the active insulin., Routine documented in this encounter Care Teams Crop Setting Out Machine Operator Relationship Specialty Start Date End Date Marcio Devlin DO [address] [place] [address] PCP - General Family Medicine 11/11/17 documented as of this encounter
--- OUTSIDE RECORDS SUMMARY | 2024-04-08 02:31 | XMS_ITS | Encounter Summary ---
Author Organization [facility] [place] [address] Care Team Providers Care Wolf Hunter Name Role Phone Marcio Devlin DO Primary Care Provider [phone] Reason for Visit * Reason Onset Date Comments Medication Refill 10/08/2018 Encounter Details Date Type Department Care Team (Late st Contact Info) Description 10/08/2018 [place] [id number] Mark Good, RN Ankylosing spondylitis of cervical region Social History Tobacco Use Types Packs/Day Years [...] encounter Miscellaneous Notes * Telephone Encounter - Mark Good RN - 10/08/2018 10:54 AM EST Patient fills with [facility], requires PA. documented in this encounter Plan of Treatment Upcoming Encounters Date Type Department Care Team (Late st Contact Info) Description 04/19/2024 10:00 AM EDT Hospital Encounter [place] [address] Arrived 04/29/2024 9:50 AM EDT Appointment MRI at [address] Luis Alfredo Velazquez MD [facility] [place] [address] 04/29/2024 9:50 AM EDT Appointment MRI at [place] [address] Luis Alfredo Velazquez MD [facility] [place] [address] 06/07/2024 2:30 PM EDT TH Visit (TeleHealth) [place] [address] Dajuan Rachel MD [facility] [place] [address] 07/02/2024 2:00 PM EDT Appointment Non-Invasive [place] [id number] Luis Alfredo Velazquez MD [facility] [place] [address] 07/02/2024 4:40 PM EDT Office Visit Cardiology at [place] [phone] Luis Alfredo Velazquez MD [facility] [place] [address] documented as of this encounter Visit Diagnoses Diagnosis Ankylosing spondylitis of cervical region Ankylosing spondylitis documented in this encounter Care Teams Wolf Hunter Relationship Specialty Start Date End Date Marcio Devlin DO [address] [place] [place] [address] PCP - General Family Medicine 11/11/17 documented as of this encounter
--- OUTSIDE RECORDS SUMMARY | 2024-04-08 02:31 | XMS_ITS | Encounter Summary ---
[place] [address] Care Team Providers Care Talent Acquisition Director Name Role Phone Marcio Devlin DO Primary Care Provider [phone] Reason for Visit * Reason Onset Date Comments Prior Authorization 02/23/2019 Humira Encounter Details Date Type Department Care Team (Late st Contact Info) Description 02/23/2019 [place] [phone] Dennis Solorzano CPHT Prior Authorization (Humira) Social History Tobacco Use Types Packs/Day Years [...] encounter Miscellaneous Notes * Telephone Encounter - Dennis Solorzano CPHT - 02/26/2019 8:48 AM EDT [facility], Prior Authorization Approval Medication Name: Humira FILLABLE AT [facility]? no APPROVAL DATES: 02/25/2019-02/26/2020 SPECIFIC INS REQUIREMENT: Must Fill With [facility] CASE/REFERENCE # [id number] APPROVAL NOTIFICATION RECEIVED VIA: Telephone COPAY: COPAY ASSISTANCE NEEDED?: NOTES: * Telephone Encounter - Alana Recio - 02/24/2019 8:24 AM EDT Received fax from [employer] stating: Plan reviews are not handled by [employer] Please call [phone] for the PA Autofax * Telephone Encounter - Dennis Solorzano CPHT - 02/23/2019 9:05 AM EDT [facility], Medication Prior Authorization Patient: Kim Funes Patient : 1960 Patient Address: [address] [place] [phone] (home) Medication: Humira Subscriber Insurance: [place] Physician: Nico Campbell Sent Via: Fax Truong: Eda/Harmeet/YURIY#: Medication Strength Frequency Requested: Humira 40 mg/0.4 ml PNKT Inject 40 mg (1 Pen) Subcutaneously Every 14 Days Qty/Day Supply: New Start: No Diagnosis & ICD-10 Code: Ankylosing Spondylitis M45.9 documented in this encounter Plan of Treatment Upcoming Encounters Date Type Department Care Team ([facility] st Contact Info) Description 04/19/2024 10:00 AM EDT Hospital Encounter Non-Invasive Cardiology Lab [place] [address] Arrived 04/29/2024 9:50 AM EDT Appointment MRI at [address] Luis Alfredo Velazquez MD [facility] [place] [address] 04/29/2024 9:50 AM EDT Appointment MRI at [place] [address] Luis Alfredo Velazquez MD [facility] [place] [address] 06/07/2024 2:30 PM EDT TH Visit (TeleHealth) Gastroenterology at [place] [phone] Dajuan Rachel MD [facility] [place]STRO[place] [address] 07/02/2024 2:00 PM EDT Appointment Non-Invasive Cardiology Lab [place] [phone] Luis Alfredo Velazquez MD [facility] [place] [address] 07/02/2024 4:40 PM EDT Office Visit Cardiology at [place] [phone] Luis Alfredo Velazquez MD [facility] [place] [address] documented as of this encounter Visit Diagnoses Not on filedocumented in this encounter Care Teams Talent Acquisition Director Relationship Specialty Start Date End Date Marcio Devlin, [address] [place] [address] PCP - General Family Medicine 11/11/17 documented as of this encounter
--- OUTSIDE RECORDS SUMMARY | 2024-04-08 02:31 | XMS_ITS | Encounter Summary ---
Author Organization [facility] [place] [address] Care Team Providers Care Manager Film Name Role Phone Marcio Devlin DO Primary Care Provider [phone] Reason for Visit * Reason Comments Right Hip Pain xr right hip pain (P H left ROSS 03/2006 Ginger) * Consultation (Routine) - Closed Specialty Diagnoses / Procedures Referred By Missy escalera Referred To Contact Orthopaedics Diagnoses Primary osteoarthritis of both hips Primary osteoarthritis of both hips Nico Campbell DO [facility] [place] [address] [facility] [address] [place] [phone] Referral ID Status Reason Start Date Expiration Date V isits Requested Visits Authorized [id number] Closed Consult, Test & Treat 02/18/2019 02/18/2020 1 1 Encounter Details Date Type Department Care Team (Latest Contact Info) Description 02/23/2019 8:20 AM EDT Office [place] [phone] Glenn Choe MD [facility] [place] [address] Primary osteoarthritis of right hip; Presence of left artificial hip joint Social History Tobacco Use Types Packs/Day Years [...] Sign Reading Time Taken Comments Blood Pressure 132/63 02/23/2019 8:16 AM EDT Pulse 59 02/23/2019 8:16 AM EDT Temperature - - Respiratory Rate - - Oxygen Saturation - - Inhaled Oxygen Concentration - - Weight 85.4 kg (188 lb 4.8 oz) 02/23/2019 8:16 A M EDT measured Height 167.4 cm (5' 5.91) 02/23/2019 8:16 AM ED T measured Body Mass Index 30.48 02/23/2019 8:16 AM EDT documented in this encounter Progress Notes * Glenn Choe MD - 02/23/2019 8:20 AM EDT I performed a history and physical examination of the patient and discussed the management plan with Dr. Hightower. I also discussed the different treatment options, as well as the risks and benefits ofeach with the patient and questions were answered. I reviewed the note and agree with the documented findings and plan of care. Glenn Choe MD, KENN * Chepe Hightower - 02/23/2019 8:20 AM EDT Images from the original note were not included. Department of Orthopaedics Division of Adult Joint Reconstructive Surgery I performed a history and physical examination of the patient and discussed the management plan with Dr. Hightower. I also discussed the different treatment options, as well as the risks and benefits ofeach with the patient and questions were answered. I reviewed the note and agree with the documented findings and plan of care. Glenn Choe MD, KENN ARTHROPLASTY HISTORY/PREVIOUS HIP SURGERY: 1. Left Total Hip Arthroplasty ([place]) 2005 Subjective: The patient is a 58-year-old female who presents with several months of right hip pain. She reportsthat the pain is in her groin and over her lateral hip. It is worse with walking up the stairs and on uneven ground. It is 6-7 out of 10 in intensity at its worse. She is taken naproxen with some relief. It does wake her at night. She has not undergone any physical therapy or injections at this poin t. She says that the pain is similar to her previous left hip pain. She did undergo a left total hip arthroplasty in 2005 which is providing her with great relief. She reports that her left hip does not bother her whatsoever and that provides her with good function. REVIEW OF SYSTEMS: Kim denies fevers, chills, night sweats, chest pain, shortness of breath, abdominal pain She does not endorse a history of DVT/PE or clotting disorder. QUESTIONNAIRE RESPONSES: General Health, Prior Treatments, PreExisting Condition, Health Habits, About You 02/22/2019 PROMIS-10 General Health Good PROMIS-10 Quality of Life Good PROMIS-10 Physical Health Good PROMIS-10 Mental Health Very Good PROMIS-10 Social Activity Very Good PROMIS-10 Everyday Activities Moderately PROMIS-10 Pain 7 PROMIS-10 Fatigue Mild PROMIS-10 Social Roles Very Good PROMIS-10 Anxious or Depressed Never PROMIS PHYSICAL SCORE (range 16-68) 39.8 PROMIS MENTAL SCORE (range 21-68) 53.3 Treatments Tried Over the counter anti-inflammatory drugs (e.g Advil, Aspirin, Aleve) MATHIEU DELAROSA Scores 55.99 ROSS Grade 5 Alzheimers or dementia No Cirrohosis or liver disease No HIV/AIDS No Pain in more than one joint in legs No Back or neck pain Yes Heart attack No Heart failure No Unclog/bypass leg arteries No Stroke, blood clot, TIA No Asthma Yes Take medication for asthma Yes Emphysema, chronic bronchities, or COPD No Stomach ulcers/peptic ulcer disease No Diabetes No Poor kidney function No Rheumatic condtions Yes Take medications for rheumatic conditions Yes Cancer No Weight (lbs) 188 Height (feet) 5 feet Height (Inches) 6 BMI 30.34 (Obese) Ever used tobacco products No Ever used alcoholic beverages Yes Alcohol frequency Never WHO - Alcohol Advice 0 (You are at low risk of health and other problems from your current pattern of use.) Live Alone No Marital situation Schooling High school graduate or GED Combined Household Income $50,000 to less than $75,000 # People Supported 2 Estonian, , No, not Estonian// Race White Health Literacy Extremely Currently working Yes Current job situation Full-time [facility] Response 02/22/2019 HOOS JR Scores 55.99 Spine [facility] Response 02/22/2019 HOOS JR Scores 55.99 ALLERGIES Allergies Allergen Reactions ??? Ibuprofen chest pains, Patient reported ??? Celebrex [Celecoxib] Rash ??? Lodine [Etodolac] Itching ??? Amoxicillin-Pot Clavulanate Nausea And Vomiting Nausea/Vomiting, patient reported ??? Cephalexin Nausea And Vomiting Nausea/Vomiting, Patient reported ??? Doxycycline Nausea And Vomiting Nausea/Vomiting, Patient reported Allergies to metals: None. SOCIAL HISTORY: reports that she has never smoked. She has never used smokeless tobacco. She reports that she does not drink alcohol or use drugs. Occupation: [employer] SIGNIFICANT MEDICAL COMORBIDITIES: Patient Active Problem List Diagnosis Code ??? [...] ??? Primary osteoarthritis of right hip M16.11 Objective: BP 132/63 (BP Location (NBP): Right arm, Patient Position: Sitting, BP Cuff Sizes: Adult (25-34 cm)) Pulse 59 Ht 167.4 cm (5' 5.91) Comment: measured Wt 85.4 kg (188 lb 4.8 oz) Comment: measured BMI 30.48 kg/m?? General : alert, appears stated age and cooperative Gait: Normal. The patient can bear weight on the injured extremity. I have made the following determinations: Hip Exam: Right Prior surgery on this joint: No Leg length: Longer leg: equal Limb Length discrepancy: 0cm Motion: Flexion contracture: 0 Total degrees of Flexion:100 Total degrees of Abduction:40 Total degrees of Ext Rotation: 35 Total degrees of Internal Rotation: 0 Gait Abnormality: Normal Radiographic evidence of joint damage: [0= normal; 1=minimal ; 2= some osteophytes , some narrowing ; 3= moderate osteophytes, significantnarrowing, mild deformity; 4= large osteophytes, marked narrowing, obvious deformity]: 2= some osteophytes, some narrowing Skin Integrity: Not assessed Pulses Palpable: Right PT: Yes Right DP:Yes Motor/Sensory: Right Distal Motor: Normal Distal Sensory: Normal Hip Abductors: 5 Trendelenburg test: negative I have made the following determinations: Hip Exam: Left Prior surgery on this joint:Yes Leg Length: Longer leg: equal Limb Length discrepancy: 0cm Motion: Flexion contracture: 0 Total degrees of Flexion: 100 Total degrees of Abduction: 50 Total degrees of Ext Rotation: 35 Total degrees of Internal Rotation: 10 Gait Abnormality: Normal Radiographs: [0= normal; 1=minimal ; 2= some osteophytes , some narrowing ; 3= moderate osteophytes, significantnarrowing, mild deformity; 4= large osteophytes, marked narrowing, obvious deformity]: Well placed total hip arthroplasty without evidence of loosening or other pathologic changes. Skin Integrity: Not assessed Motor/sensory grossly intact Extremity WWP Trendelenburg test: negative Imaging: X-ray right: mild joint space narrowing and subchondral sclerosis. Assessment: Ms. Funes is a 58 y.o. year old female with mild osteoarthritis of her right hip. Plan: At this point, the patient's degree of pain and disability does not match her radiographic findings. It is possible that she has some type of soft tissue pathology that is accounting for her pain that would not be appreciated on radiographic images. To confirm the etiology of her hip pain, we have suggested that she undergo a right hip injection. This will hopefully provide her with some lasting relief as well help her avoid joint arthroplasty for the time being. She is still relatively young we would like to avoid joint replacement as long as possible. We had a long discussion with her aboutthe fact that joint replacement is always an elective procedure and that is good to avoid it until t he pain is debilitating. At this point, the patient elected to move forward with joint injection. She will be in contact with our office when and if her hip pain recurs to return for further discussion and evaluation. No new imaging is necessary at that appointment if it is within the next 6 months. In terms of her left prosthetic hip, radiographic images are reassuring today that it continues tofunction well. She has no symptoms on that side and no additional evaluation is required at this time. We recommend repeat images of the left hip in approximately 4 to 5 years. CHEPE HIGHTOWER MD documented in this encounter Plan of Treatment Upcoming Encounters Date Type Department Care Team (Late st Contact Info) Description 04/19/2024 10:00 AM EDT Hospital Encounter Non-[place] [address] Arrived 04/29/2024 9:50 AM [place] [address] Luis Alfredo Velazquez MD [facility] [place] [address] 04/29/2024 9:50 [place] [address] Luis Alfredo Velazquez MD [facility] [place] [address] 06/07/2024 2:30 PM EDT TH Visit (TeleHealth) [place] [address] Dajuan Rachel MD [facility] [place] [address] 07/02/2024 2:00 PM EDT Appointment Non-[place] [address] Luis Alfredo Velazquez MD [facility] [place] [address] 07/02/2024 4:40 PM EDT Office Visit Cardiology at [address] [place] [address] Luis Alfredo Velazquez MD [facility] [place] [address] documented as of this encounter Results * XR Fluoro Guided Joint Injection Large Right (03/09/2019 10:37 AM EDT) Anatomical Region Laterality Modality Right Radio Fluoroscop y Impressions 03/09/2019 2:51 PM EDT Uneventful right hip joint injection under fluoroscopy. Resident/Fellow: None Attending: There was no attending present for this procedure Procedure performed by Danika Carlton APRN Thank you for letting us participate in the care of this patient. For questions regarding this report, please contact the number below. ? Electronically signed by: Danika Carlton [facility] ([phone]), at 03/09/2019 2:51 PM Narrative 03/09/2019 2:51 PM EDT HISTORY: Right hip pain, hip joint etiology? RIGHT HIP JOINT INJECTION UNDER FLUOROSCOPY TECHNIQUE: After an extensive conversation with the patient regarding risks and benefits, oral and written consent were obtained.? A pre- procedural time-out was performed, including review of the patient's relevant electronic medical record and allergies, as per [facility] [place] protocol. The patient was placed supine on the fluoroscopic table. ??The skin overlying the right anterior hip was prepped and draped in the usual aseptic manner. 1% Lidocaine was used to achieve local anesthesia. Under fluoroscopic guidance, 22 gauge 3.5 inch needle was advanced into the joint space. ??Small amount of air was injected to document needle placement. ??A mixture of Ropivacaine and triamcinolone acetonide was injected. All needles removed at end of procedure. FINDINGS: 1. ??Small amount of injected air in the right hip joint space. 2. ??PAIN SCORE: ??Before: 6/10 ??After: 0/10 3. Fluoroscopy time: 0.08 minutes 4. Medications: ??Lidocaine 1% - <5 ml, for subcutaneous anesthesia ??Ropivacaine HCL ??0.5% - 3 ml ??Triamciolone Acetonide ??- 40 mg COMPLICATIONS: ??None immediate. POST-PROCEDURE CARE: Information regarding monitor of infection, post- procedural pain and management of steroid flare were reviewed with patient. Procedure Note Danika Carlton, [employer] - 03/09/2019 HISTORY: Right hip pain, hip joint etiology? RIGHT HIP JOINT INJECTION UNDER FLUOROSCOPY TECHNIQUE: After an extensive conversation with the patient regarding risks andbenefits, oral and written consent were obtained.? A pre- procedural time-out was performed, including review of the patient's relevant electronic medicalrecord and allergies, as per [facility] [place] protocol. The patient was placed supine on the fluoroscopic table. The skinoverlying the right anterior hip was prepped and draped in the usual aseptic manner.1% Lidocaine was used to achieve local anesthesia. Under fluoroscopicguidance, 22 gauge 3.5 inch needle was advanced into the joint space. Small amount ofair was injected to document needle placement. A mixture of Ropivacaine and triamcinolone acetonide was injected. All needles removed at end ofprocedure. FINDINGS: 1. Small amount of injected air in the right hip joint space. 2. PAIN SCORE: Before: 6/10 After: 0/10 3. Fluoroscopy time: 0.08 minutes 4. Medications: Lidocaine 1% - <5 ml, for subcutaneous anesthesia Ropivacaine HCL 0.5% - 3 ml Triamciolone Acetonide - 40 mg COMPLICATIONS: None immediate. POST-PROCEDURE CARE: Information regarding monitor of infection, post- procedural pain and management of steroid flare were reviewed withpatient. IMPRESSION Uneventful right hip joint injection under fluoroscopy. Resident/Fellow: None Attending: There was no attending present for this procedure Procedure performed by Danika Carlton APRN Thank you for letting us participate in the care of this patient. Forquestions regarding this report, please contact the number below. Glenn Choe MD IMG FLUORO ORDERABLE S documented in this encounter Visit Diagnoses Diagnosis Primary osteoarthritis of right hip Primary localized osteoarthrosis, pelvic region and thigh Presence of left artificial hip joint Hip joint replacement by other means Primary osteoarthritis of right hip Primary localized osteoarthrosis, pelvic region and thigh documented in this encounter Care Teams Manager Film Relationship Specialty Start Date End Date Marcio Devlin DO [address] [place] [address] PCP - General Family Medicine 11/11/17 documented as of this encounter
--- OUTSIDE RECORDS SUMMARY | 2024-04-08 02:31 | XMS_ITS | Encounter Summary ---
Author Organization [facility] Address [facility] [place] [address] Care Team Providers Care Electronics Technician Name Role Phone Marcio Devlin DO Primary Care Provider [phone] Encounter Details Date Type Department Care Team (Late st Contact Info) Description 11/09/2019 Orders [place] [phone] Froilan Sahni MD [facility] [place] [address] Ulcerative pancolitis without complication; Adalimumab (Humira) long-term [...] AM EDT Hospital Encounter Non-Invasive [place] [address] Arrived 04/29/2024 9:50 [place] [phone] Luis Alfredo Velazquez MD [facility] [place] [address] 04/29/2024 9:50 [place] [phone] Luis Alfredo Velazquez MD [facility] [address] [place] [address] 06/07/2024 2:30 PM EDT TH Visit (TeleHealth) [place] [phone] Dajuan Rachel MD [facility] DR [place] [address] 07/02/2024 2:00 PM EDT Appointment Non-Invasive Cardiology Lab [place] [phone] Luis Alfredo Velazquez MD [facility] [address] [place] [address] 07/02/2024 4:40 PM EDT Office Visit Cardiology at [address] [phone] Luis Alfredo Velazquez MD [facility] [place] [address] documented as of this encounter Results * Adalimumab Quant with Reflex to Antibody (11/09/2019 1:19 PM EST) Adalimumab Level 6.0 mcg/mL [facility] Comment: For clinical assessment of response to therapy, adalimumab should be measured at trough. When adalimumab trough concentrations are greater than 5.0 mcg/mL, clinically relevant [id number] are unlikely and reflex testing will not be performed. REFERENCE VALUE Limit of Quantitation = 0.8 mcg/mL ADDITIONAL INFORMATION This test was developed and its performance characteristics determined by [facility] in a manner consistent with CLIA requirements. This test has not been cleared or approved by the U.S. Food and Drug Administration. Test Performed by: [facility] - [address] [address] Wire Stockkeeper: Oc Lorenzo M.D. Ph.D.; CLIA# [id number] Blood specimen (specimen) 11/09/2019 1:19 PM EST 11/10/2019 8:27 AM EST Narrative Resulting Agency Comment Spec In Lab Froilan Sahni MD CHEMISTRY ORDERAB LES Performing Organization Address [place]/[facility] Co de Phone Number [facility] [place] [address] * Hepatitis B Surface Antigen (11/09/2019 1:19 PM EST) HepB Surface Ag Negative Negative [facility] Blood specimen (specimen) 11/09/2019 1:19 PM EST 11/09/2019 1:30 PM EST Narrative Resulting Agency Comment Spec In Lab Froilan Sahni MD CHEMISTRY ORDERAB LES Performing Organization Address [place]/[facility] Co de Phone Number [facility] [place] [address] * Hepatitis B Surface Antibody (11/09/2019 1:19 PM EST) HepB Surface Ab Quant 61.4 IU/L [facility] Comment: HepB Surface Ab Quant: Unvaccinated: < 8.5 IU/L Vaccinated: > 11.5 IU/L HepB Surface Ab Positive [facility] Comment: Patient is considered to be immune to HBV infection. Expected Results: Vaccinated: Positive Unvaccinated: Negative Blood specimen (specimen) 11/09/2019 1:19 PM EST 11/09/2019 1:30 PM EST Narrative Resulting Agency Comment Spec In Lab Froilan Sahni MD IMMUNOLOGY ORDERA BLES Performing Organization Address [place]/[facility]/ZIP Co de Phone Number [facility] [place] [address] * Hepatitis B Core Antibody, Total (11/09/2019 1:19 PM EST) Hep B Core Ab Negative Negative [facility] Blood specimen (specimen) 11/09/2019 1:19 PM EST 11/09/2019 1:30 PM EST Narrative Resulting Agency Comment Spec In Lab Froilan Sahni MD CHEMISTRY ORDERAB LES Performing Organization Address [place]/[facility] Co de Phone Number [facility] [place] [place] [address] * QuantiFERON-TB Gold (11/09/2019 1:19 PM EST) QFT Nil 0.040 IU/mL [facility] QFT TB Ag1-Nil 0.010 IU/mL [facility] QFT TB Ag2-Nil 0.100 IU/mL [facility] QFT Mitogen-Nil >10.000 IU/mL [facility] Quantiferon TB Negative Negative [facility] Quantiferon TB Interp M. tuberculosis infection [...] affect immune function, or other immunological factors. [facility] Comment: The performance of the QFT-Plus [...] MD CHEMISTRY ORDERAB LES Performing Organization Address City/State/[facility] Co de Phone Number [facility] [place] [place] [address] * Comprehensive metabolic panel (non-fasting) (11/09/2019 1:19 PM EST) Glucose Lvl 124 65 - 199 mg/dL [facility] Comment:Diabetes: >=200 mg/d L plus symptoms BUN 8 8 - 18 mg/dL [facility] Creatinine 0.80 0.70 - 1.20 mg/dL [facility] Sodium 145 135 - 145 mmol/L [facility] Potassium 3.7 3.5 - 5.0 mmol/L [facility] Comment: Please note: ??Patients with WBC >100,000 may have falsely elevated Potassium levels. ??For accurate Potassium quantification in these patients send serum separator tube (gold top) for subsequent determinations. ??Contact the Clinical Chemistry Laboratory if there are any questions. Chloride 105 98 - 107 mmol/L [facility] CO2 27 22 - 31 mmol/L [facility] Anion Gap 13 5 - 15 mmol/L [facility] Calcium 9.5 8.5 - 10.5 mg/dL [facility] Total Protein 7.9 6.1 - 8.0 gm/dL [facility] Albumin 4.0 3.2 - 5.2 gm/dL [facility] AST 19 0 - 30 unit/L [facility] ALT 12 0 - 30 unit/L [facility] Alk Phos 82 35 - 105 unit/L [facility] Total Bilirubin 0.4 0.2 - 1.3 mg/dL [facility] Estimated GFR 81 >=60 mL/min/1. 73 m?? [facility] Comment: The eGFR was calculated using the CKD-EPI equation. As with all creatinine based estimates of kidney function, eGFR values calculated with the CKD-EPI equation are not accurate in patients with acute kidney failure, extremes of body mass or the acutely ill. http://[employer]/[facility]nkf eGFR 94 >=60 mL/min/1. 73 m?? [facility] Comment: The eGFR was calculated using the CKD-EPI equation. As with all creatinine based estimates of kidney function, eGFR values calculated with the CKD-EPI equation are not accurate in patients with acute kidney failure, extremes of body mass or the acutely ill. http://[employer]/[facility]nkf Blood specimen (specimen) 11/09/2019 1:19 PM EST 11/09/2019 1:30 PM EST Narrative Resulting Agency Comment Spec In Lab Froilan Sahni MD CHEMISTRY ORDERAB LES Performing Organization Address City/[facility]/ZIP Co de Phone Number [facility] [place] [address] * (ABNORMAL) CRP, acute inflammation (11/09/2019 1:19 PM EST) CRP 5.4(H) <=4.9 mg/L [facility] Blood specimen (specimen) 11/09/2019 1:19 PM EST 11/09/2019 1:30 PM EST Narrative Resulting Agency Comment Spec In Lab Froilan Sahni MD CHEMISTRY ORDERAB LES Performing Organization Address [place]/[facility]/ZIP Co de Phone Number [facility] [place] [address] documented in this encounter Visit Diagnoses Diagnosis Ulcerative pancolitis without complication Adalimumab (Humira) long-term use Encounter for long-term (current) use of other medications documented in this encounter Care Teams Electronics Technician Relationship Specialty Start Date End Date Marcio Devlin DO [address] [place] [address] PCP - General Family Medicine 11/11/17 documented as of this encounter
--- OUTSIDE RECORDS SUMMARY | 2024-04-08 02:31 | XMS_ITS | Encounter Summary ---
Author Organization [facility] Address [facility] [place] [address] Care Team Providers Care Coverstitch Binder Name Role Phone Marcio Devlin DO Primary Care Provider [phone] Encounter Details Date Type Department Care Team (Latest Contact Info) Description 02/23/2019 6:48 AM EDT - 02/23/2019 11:59 PM EDT Hospital Encounter XRay at [address] [place] [address] Glenn Choe MD [facility] [place] [place] [address] Right hip pain; Hx of total hip arthroplasty, left Discharge Disposition: Home Social History Tobacco Use [...] Sig Dispensed Refills Start Date End Date PROAIR HFA 90 mcg/actuation HFA Aerosol Inhaler as needed. 07/20/2018 topiramate 50 mg capsule,sprinkle,ER 24hr TAKE ONE CAPSULE BY MOUTH TWICE A DAY 3 08/25/2018 aspirin 81 mg Tablet, Delayed Release (E.C.) Take 81 mg by mouth daily. SUMAtriptan (IMITREX) 20 mg/actuation [place], Non-Aerosol 1 spray as needed. 11/03/2017 metFORMIN [...] by mouth 2 times daily. 12/24/2012 10/07/2023 adalimumab 40 mg/0.4 mL Pen Injector Kit Inject 40 mg subcutaneously every 14 days. 3 kit 3 02/19/2019 02/26/2019 metoprolol succinate (TOPROL-XL) 100 mg Tablet Sustained [...] Take 100 mg by mouth daily. 11/26/2023 ursodiol (ACTIGALL) 300 mg capsule Take 1 [...] 400 unit capsule 800UNIT, PO, Once daily 10/15/201001/14 documented as of this encounter Plan of Treatment Upcoming Encounters Date Type Department Care Team (Late st Contact Info) Description 04/19/2024 10:00 AM EDT Hospital Encounter Non-[place]vasive [place] [address] Arrived 04/29/2024 9:50 AM EDT [place] [phone] Luis Alfredo Velazquez MD [facility] [place] [place] [address] 04/29/2024 9:50 AM EDT [place] [phone] Luis Alfredo Velazquez MD [facility] [place] [place] [address] 06/07/2024 2:30 PM EDT TH Visit (TeleHealth) [place] [address] Dajuan Rachel MD [facility] [place] [address] 07/02/2024 2:00 PM EDT Appointment Non-[place]vasive [place] [phone] Luis Alfredo Velazquez MD [facility] [place] [address] 07/02/2024 4:40 PM EDT Office Visit Cardiology at [address] [phone] Luis Alfredo Velazquez MD [facility] [place] [place] [address] documented as of this encounter Procedures Procedure Name Priority Date/Time Associated Diagnosis Comments XR PELVIS AND HIP 2 VIEWS BILATERAL Routine 02/23/2019 6:59 AM EDT Right hip pain Hx of total hip arthroplasty, left documented in this encounter Results * XR Pelvis w AP & Lat Hip Bilat (02/23/2019 6:59 AM EDT) Anatomical Region Laterality Modality Pelvis, Hip Bilateral Digital Radiogra phy Impressions 02/23/2019 7:35 AM EDT Mild degenerative changes as above. Thank you for letting us participate in the care of this patient. For questions regarding this report, please contact the number below. ? Narrative 02/23/2019 7:35 AM EDT EXAMINATION: XR PELVIS W AP AND LAT HIP BILAT CLINICAL HISTORY: right hip pain//history left Total hip 03/2006 TECHNIQUE: Frontal pelvis with frontal and lateral bilateral hips COMPARISON: None FINDINGS: LEFT total hip arthroplasty with intact hardware and maintained articulation; no appreciable change in appearance or alignment, without acute periprosthetic fracture or lucency seen. Mild RIGHT hip osteoarthropathy. No fracture or dislocation seen. SI joints appear to be fused. Degenerative changes of the pubic symphysis. Bowel contents, including air and stool, project over the sacral and iliac bones as well as included lumbosacral spine. Procedure Note Jordon Mondragon MD - 02/23/2019 EXAMINATION: XR PELVIS W AP AND LAT HIP BILAT CLINICAL HISTORY: right hip pain//history left Total hip 03/2006 TECHNIQUE: Frontal pelvis with frontal and lateral bilateral hips COMPARISON: None FINDINGS: LEFT total hip arthroplasty with intact hardware and maintainedarticulation; no appreciable change in appearance or alignment, without acuteperiprosthetic fracture or lucency seen. Mild RIGHT hip osteoarthropathy. No fractureor dislocation seen. SI joints appear to be fused. Degenerative changes ofthe pubic symphysis. Bowel contents, including air and stool, project overthe sacral and iliac bones as well as included lumbosacral spine. IMPRESSION Mild degenerative changes as above. Thank you for letting us participate in the care of this patient. Forquestions regarding this report, please contact the number below. Glenn Choe MD IMG DX ORDERABLES documented in this encounter Visit Diagnoses Diagnosis Right hip pain Pain in joint, pelvic region and thigh Hx of total hip arthroplasty, left documented in this encounter Care Teams Coverstitch Binder Relationship Specialty Start Date End Date Marcio Devlin DO [address] [place] [address] PCP - General Family Medicine 11/11/17 documented as of this encounter
--- OUTSIDE RECORDS SUMMARY | 2024-04-08 02:31 | XMS_ITS | Encounter Summary ---
[place] [address] Care Team Providers Care Softlines Supervisor Name Role Phone Marcio Devlin DO Primary Care Provider [phone] Reason for Referral * Consultation (Routine) - Closed Specialty Diagnoses / Procedures Referred By Missy escalera Referred To Contact Orthopaedics Diagnoses Primary osteoarthritis of both hips Primary osteoarthritis of both hips Nico Campbell [facility] [place] [address] [facility] [address] [place] [phone] Referral ID Status Reason Start Date Expiration Date V isits Requested Visits Authorized [id number] Closed Consult, Test & Treat 02/18/2019 02/18/2020 1 1 Encounter Details Date Type Department Care Team (Latest Contact Info) Description 02/18/2019 4:00 PM EDT Office [place] [address] Nico Campbell [facility] [place] [address] Ankylosing spondylitis, unspecified site of spine (Primary Dx); Primary osteoarthritis of both hips Social History [...] Sign Reading Time Taken Comments Blood Pressure 118/66 02/18/2019 3:49 PM EDT Pulse 66 02/18/2019 3:49 PM EDT Temperature 37.1 ??C (98.8 ??F) 02/18/2019 3:49 PM ED T Respiratory Rate - - Oxygen Saturation 98% 02/18/2019 3:49 PM EDT Inhaled Oxygen Concentration - - Weight 85.3 kg (188 lb) 02/18/2019 3:49 PM EDT Height 167.6 cm (5' 6) 02/18/2019 3:49 PM EDT Body Mass Index 30.34 02/18/2019 3:49 PM EDT documented in this encounter Progress Notes * Nico Campbell, - 02/18/2019 4:00 PM EDT Rheumatology Outpatient Clinic Follow-up Visit PCP: Marcio Devlin DO [address] [place] [address] Rheumatological History: 1. UC associated Ankylosing Spondylitis [...] nodosum associated with UC MEDS: 1) Humira q2 weeks 2) SSZ (both on since beginning of 2010-tolerating well without ADRs) -Controlling sx well--sx have been quiescent and stable for >1 year now on her current medications -options of MTX/leflunomide may be limited by underlying Hx of MÉNDEZ. ? #MÉNDEZ: -S/P liver bx in 03/2010 -LFTS mildly elevated and stable. #S/P left hip replacement back in 2005 Interval History: Pt is a 58 yo female with PMHx of MÉNDEZ and UC with presenting for follow up who has been maintained on Humira and Sulfasalazine since beginning of 2010 and has been doing overall very well since with no ADRs reported or known from current medication regimen. ? -Currently, she overall reports no new or worsening sx -Only new or worsening sx is her right hip pain that is worse with use especially going up stairs/incline and better with rest. -AM stiffness to hip and other joint areas limited to 15 minutes generally -No joint swelling known or reported -No other joints are worsening -She has had left hip replacement for sx that she currently feels now with her right hip and wonders if it is time to have it evaluated by Orthopedics for potential joint replacement -she requested referral for further discussions/evaluations with ortho -She denies any uveitis sx, new or worsening IBD sx, low back sx, new rashes -She is taking a combo VitD and CA supplement BID. No fractures hx. -She had a DEXA scan in 2015 that was revewied with her that showed osteopenia. -Current medication regimen: 1) Humira 40 mg q2wks --> requesting Citrate free version given burning she has been trying to tolerate for years now. 2) SZS 1000 mg BID (prescribed by PCP) -Recent labs reviewed with patient and CBC and CMP WNL Past Medical History: Past Medical History: Diagnosis Date ??? Ankylosing spondylitis 02/21/2011 ??? Hepatitis ??? Hypertension ??? Mild asthma 02/24/2018 ??? Type 2 diabetes mellitus without complication, without long-term current use of insulin 02/24/2018 Fhx, Soc Hx, Allergies: Reviewed in eDH Physical Examination: BP 118/66 Pulse 66 Temp 37.1 ??C (98.8 ??F) Ht 167.6 cm (5' 6) Wt 85.3 kg (188 lb) SpO2 98% BMI 30.34 kg/m?? General: Well appearing, NAD HEENT: Mucous membranes are moist, no oral mucosal ulceration. Neck: Supple, no lymphadenopathy, full range of motion Cardiovascular: RRR, no m/r/g, normal S1/S2, 2+ radial artery pulses Lungs: CTA b/l no w/r/r Back: Nontender over the spine, paravertebral musculature and SI joint area. No warmth or erythema noted. Neuro: Alert and oriented x3. Skin: no obvious rashes or lesions noted in face, neck, upper chest, bilateral hands, forearms, legs Nails: no nail pitting or onycholysis MSK: intact ROM throughout the upper and lower extremity joints (pain with hip ROM), no appreciatedsynovitis or tenderness in the hands, wrists, elbows, shoulders, knees, ankles and feet noted. Labs: Lab Results Component Value Date WBC 6.3 08/31/2018 HGB 14.6 08/31/2018 HCT 44.5 08/31/2018 PLATELET 184 08/31/2018 Labs from 08/31/2018: CBC w/ diff: WNL CMP: WNL Imaging: DEXA (03/04/2016): IMPRESSION The measurements satisfied the WHO classification for low bone mass or osteopenia. There is no significant change since 2011. Assessment: Pt is a 58 yo female with PMHx of MÉNDEZ and UC with presenting for follow up who has been maintained on Humira and Sulfasalazine since beginning of 2010 and has been overall been well controlled with known or reported ADRs from medications. Exam without synovitis. Labs have historically been goodand recent set WNL for CBC and CMP. Of note, has hx of MÉNDEZ and has had mild elevations in her LFTs. Discussed her current medications and ideally would continue for maintenance as flare risk increases if off. Given she has tolerated her meds chronically, no strong reason for decreasingor discontinuing meds. She agreed. Discussed will be scheduling for a DEXA scan for her osteopenia monitoring. Ot her recs as below. ?? PLAN: -Continue current meds: 1) Humira 40 mg [id number] 2) SZS 1000 mg BID -Check labs today: CBC and CMP -DEXA ordered and shall be scheduled through secretaries -Continued VitD and Ca supplements as she has been doing -Advised to follow up with PCP in regards to preventative interventions such as checking for uptodate status on vaccine (ie. Shingrix she has never received she believes and pneumococcal pneumonia). -Advised to follow with PCP in regards to regular C-scope screening given her UC dx. -F/U 3 months. -Patient understood and agreed to the above. Nico Campbell DO Rheumatology Fellow * Oc Gresham MD - 02/18/2019 4:00 PM EDT Rheumatology Staff Fellow provided care Oc Gresham * Oc Gresham MD - 02/18/2019 4:00 PM EDT Rheumatology Staff Fellow provided care Oc Gresham documented in this encounter Plan of Treatment Upcoming Encounters Date Type Department Care Team (Late st Contact Info) Description 04/19/2024 10:00 AM EDT Hospital Encounter Non[place] [address] Arrived 04/29/2024 9:50 AM EDT Appointment MRI at [place] [address] Luis Alfredo Velazquez MD [facility] [place] [address] 04/29/2024 9:50 AM EDT Appointment MRI at [place] [address] Luis Alfredo Velazquez MD [facility] [place] [address] 06/07/2024 2:30 PM EDT TH Visit (TeleHealth) [place] [address] Dajuan Rachel MD [facility] [place] [address] 07/02/2024 2:00 PM EDT Appointment Non-Invasive Cardiology Lab [facility] [place] [phone] Luis Alfredo Velazquez MD [facility] [place] [address] 07/02/2024 4:40 PM EDT Office Visit Cardiology at [address] [place] [phone] Luis Alfredo Velazquez MD [facility] [place] [address] Scheduled Referrals Name Type Priority Associated Diagnoses Orde r Schedule Referral to Orthopaedics Outpatient Referral Routine Primary osteoarthritis of both hips Ordered: 02/18/2019 documented as of this encounter Procedures Procedure Name Priority Date/Time Associated Diagnosis Comments HEMOGRAM Routine 02/18/2019 5:18 PM EDT Ankylosing spondylitis, unspecified site of spine DIFFERENTIAL, AUTOMATED Routine 02/18/2019 5:18 PM EDT Ankylosing spondylitis, unspecified site of spine CBC (WITH DIFF) Routine 02/18/2019 5:18 PM EDT Ankylosing spondylitis, unspecified site of spine COMPREHENSIVE METABOLIC PANEL (NON-FASTING) Routine 02/18/2019 5:18 PM EDT Ankylosing spondylitis, unspecified site of spine documented in this encounter Results * (ABNORMAL) Differential, Automated (02/18/2019 5:18 PM EDT) Neutrophils % 43.1 % [facility] Neutr Abs (ANC) 3.79 1.70 - 6.10 x10(3)/mc L [facility] Lymphocytes % 42.7 % [facility] Lymphocytes Abs 3.8(H) 0.9 - 3.2 x10(3)/mc L [facility] Monocytes % 10.8 % [facility] Monocyte Abs 1.0(H) 0.3 - 0.9 x10(3)/[facility] Eosinophils % 2.6 % [facility] Eosinophils Abs 0.2 0.0 - 0.4 x10(3)/[facility] Basophils % 0.6 % [facility] Basophils Abs 0.0 0.0 - 0.1 x10(3)/[facility] Immature Gran % 0.20 % [facility] Comment: Immature granulocytes(IG's)percentage and absolute count will include metamyelocytes, myelocytes, and promyelocytes. Blood smears from CBCs yielding IG's will be scanned manually for concordance. If this scan disagrees with the automated IG or if promyelocytes are noted, a manual differential will be performed. Melanie Gran Abs 0.02 0.00 - 0.04 x10(3)/[facility] Blood specimen (specimen) 02/18/2019 5:18 PM EDT 02/18/2019 5:21 PM EDT Narrative Resulting Agency Comment Spec In Lab Nico Campbell DO HEMATOLOGY ORDERABLE S Performing Organization Address City/State/[facility] Co de Phone Number [facility] [place] [address] * Hemogram (02/18/2019 5:18 PM EDT) WBC 8.8 4.0 - 9.5 x10(3)/[facility] RBC 4.71 4.00 - 5.21 x10(6)/[facility] Hemoglobin 14.4 11.7 - 15.5 gm/dL [facility] Hematocrit 44.3 35.7 - 45.8 % [facility] MCV 94.1 82.6 - 94.4 fL [facility] MCH 30.6 27.1 - 32.0 pg [facility] MCHC 32.5 31.7 - 35.0 gm/dL [facility] Platelets 210 145 - 357 x10(3)/[facility] RDWSD 44.7 37.0 - 46.0 fL [facility] RDWCV 13.0 11.5 - 14.1 % [facility] MPV 10.4 7.6 - 12.9 fL [facility] nRBC % Auto 0.0 % [facility] nRBC Abs Auto 0.000 0.000 - 0.000 x10(3)/[facility] Blood specimen (specimen) 02/18/2019 5:18 PM EDT 02/18/2019 5:21 PM EDT Narrative Resulting Agency Comment Spec In Lab Nico Campbell DO HEMATOLOGY ORDERABLE S [facility] [place] [address] * (ABNORMAL) Comprehensive metabolic panel (non-fasting) (02/18/2019 5:18 PM EDT) Glucose Lvl 112 65 - 199 mg/dL [facility] Comment:Diabetes: >=200 mg/d L plus symptoms BUN 20(H) 8 - 18 mg/dL [facility] Creatinine 0.91 0.70 - 1.20 mg/dL [facility] Sodium 144 135 - 145 mmol/L [facility] Potassium 4.4 3.5 - 5.0 mmol/L [facility] Comment: Please note: ??Patients with WBC >100,000 may have falsely elevated Potassium levels. ??For accurate Potassium quantification in these patients send serum separator tube (gold top) for subsequent determinations. ??Contact the Clinical Chemistry Laboratory if there are any questions. Chloride 107 98 - 107 mmol/L [facility] CO2 27 22 - 31 mmol/L [facility] Anion Gap 10 5 - 15 mmol/L [facility] Calcium 9.9 8.5 - 10.5 mg/dL [facility] Total Protein 7.9 6.1 - 8.0 gm/dL [facility] Albumin 4.1 3.2 - 5.2 gm/dL [facility] AST 23 0 - 30 unit/L [facility] ALT 19 0 - 30 unit/L [facility] Alk Phos 96 40 - 104 unit/L [facility] Total Bilirubin 0.2 0.2 - 1.3 mg/dL [facility] Estimated GFR 70 >=60 mL/min/1. 73 m?? [facility] Comment: The eGFR was calculated using the CKD-EPI equation. As with all creatinine based estimates of kidney function, eGFR values calculated with the CKD-EPI equation are not accurate in patients with acute kidney failure, extremes of body mass or the acutely ill. http://[employer]/[facility] eGFR 81 >=60 mL/min/1. 73 m?? [facility] Comment: The eGFR was calculated using the CKD-EPI equation. As with all creatinine based estimates of kidney function, eGFR values calculated with the CKD-EPI equation are not accurate in patients with acute kidney failure, extremes of body mass or the acutely ill. http://[employer]/[facility] Blood specimen (specimen) 02/18/2019 5:18 PM EDT 02/18/2019 5:21 PM EDT Narrative Resulting Agency Comment Spec In Lab Oc Gresham MD CHEMISTRY ORDERABLES Performing Organization Address City/State/[facility] Co de Phone Number [facility] [place] [address] documented in this encounter Visit Diagnoses Diagnosis Ankylosing spondylitis, unspecified site of spine- Primary Primary osteoarthritis of both hips Primary localized osteoarthrosis, pelvic region and thigh documented in this encounter Care Teams Softlines Supervisor Relationship Specialty Start Date End Date Marcio Devlin DO [address] [place] [address] PCP - General Family Medicine 11/11/17 documented as of this encounter
--- OUTSIDE RECORDS SUMMARY | 2024-04-08 02:31 | XMS_ITS | Encounter Summary ---
Author Organization [facility] [address] Care Team Providers Care Pharmacy Analyst Name Role Phone Marcio Devlin DO Primary Care Provider Encounter Details Date Type Department Care Team (Late st Contact Info) Description 10/15/2019 [place] [address] Karen Gupta Social History Tobacco Use Types Packs/Day Years [...] encounter Miscellaneous Notes * Telephone Encounter - Karen Gupta - 10/15/2019 1:14 PM EST Kim Funes [id number] Diagnosis/Indication: COLO 1. Have you ever had a/an Colonoscopy before? Yes: Date 03/04/17 If yes, did you have any problems with the procedure? No What type of sedation was used: IV Conscious Sedation 2. Do you take any Blood Thinners? No 3. Do you have a Pacemaker or Defibrillator device? No 4. Are you a diabetic? Yes: Controlled by diet or medication? Both 5. Do you have any Allergies to Eggs, Latex or Medications? Yes: SEE EDH 6. Do you take any Oral Iron Supplements (Including multi-vitamins)? Yes (Iron) 7. Do you have a history of three or more abdominal surgeries? No 8. Have you had a problem with sedation or anesthesia? No 9. Do you have a c-pap machine or oxygen tank? Neither 10. Do you take prescription narcotic pain medications? No 11. Do you have a preference regarding the gender of your provider? No Preference 12. Is there any other information you would like to give us to aid in scheduling? No 13. Say to patient: You must have a responsible constitution party who will drive you to your procedure, stay [place] for the entire duration of your procedure, and drive you home from your procedure? Height: 5'6 Weight: 183 BMI: 29.5 Age:59 y.o. documented in this encounter Plan of Treatment Upcoming Encounters Date Type Department Care Team (Late st Contact Info) Description 04/19/2024 10:00 AM EDT Hospital Encounter Non-Invasive [place] [phone] Arrived 04/29/2024 9:50 AM ED[place] [phone] Luis Alfredo Velazquez MD [facility] [place] [address] 04/29/2024 9:50 AM [place] [phone] Luis Alfredo Velazquez MD [facility] [place] [address] 06/07/2024 2:30 PM EDT TH Visit (TeleHealth) [place] [address] Dajuan Rachel MD [facility] [place] [address] 07/02/2024 2:00 PM EDT Appointment Non-Invasive [place] [phone] Luis Alfredo Velazquez MD [facility] [place] [address] 07/02/2024 4:40 PM EDT Office Visit Cardiology at [address] [phone] Luis Alfredo Velazquez MD [facility] [place] [address] documented as of this encounter Visit Diagnoses Not on filedocumented in this encounter Care Teams Pharmacy Analyst Relationship Specialty Start Date End Date Marcio Devlin DO [address] [place] [address] PCP - General Family Medicine 11/11/17 documented as of this encounter
--- OUTSIDE RECORDS SUMMARY | 2024-04-08 02:31 | XMS_ITS | Encounter Summary ---
Author Organization [facility] Address [facility] [place] [address] Care Team Providers Care Wood Caulker Name Role Phone Marcio Devlin DO Primary Care Provider [phone] Encounter Details Date Type Department Care Team (Late st Contact Info) Description 02/26/2019 Refill [place] [phone] Nico Campbell [facility] [place] [address] Social History Tobacco Use Types Packs/Day Years [...] AM EDT Hospital Encounter Non-[place] [phone] Arrived 04/29/2024 9:50 AM EDT [place] [address] [address] [facility] [place] [address] 04/29/2024 9:50 AM EDT [place] [address] [address] [facility] [place] [address] 06/07/2024 2:30 PM EDT TH Visit (TeleHealth) Gastroenterology at [place] [phone] [facility] [place] [address] 07/02/2024 2:00 PM EDT Appointment Non-Invasive Cardiology Lab [place] [phone] [address] [facility] [place] [address] 07/02/2024 4:40 PM EDT Office Visit Cardiology at [address] [address] [address] [facility] [place] [address] documented as of this encounter Visit Diagnoses Not on filedocumented in this encounter Care Teams Wood Caulker Relationship Specialty Start Date End Date Marcio Devlin DO [address] [place] [address] PCP - General Family Medicine 11/11/17 documented as of this encounter
--- OUTSIDE RECORDS SUMMARY | 2024-04-08 02:31 | XMS_ITS | Encounter Summary ---
Author Organization [facility] [place] [address] Care Team Providers Care Weigher And Grader Name Role Phone Marcio Devlin DO Primary Care Provider [phone] Encounter Details Date Type Department Care Team (Late st Contact Info) Description 05/31/2019 Specialty [place] [address] Juan Carlos Joseph Social History [...] AM EDT Hospital Encounter Non-[place] [phone] Arrived 04/29/2024 9:50 AM [place] [address] Luis Alfredo Velazquez MD [facility] [place] [address] 04/29/2024 9:50 AM EDT Appointment MRI at [place] [phone] Luis Alfredo Velazquez MD [facility] [place] [address] 06/07/2024 2:30 PM EDT TH Visit (TeleHealth) Gastroenterology at [address] Dajuan Rachel MD [facility] [place] [address] 07/02/2024 2:00 PM EDT Appointment Non-Invasive Cardiology Lab [place] [phone] Luis Alfredo Velazquez MD [facility] [place] [address] 07/02/2024 4:40 PM EDT Office Visit Cardiology at [address] [address] Luis Alfredo Velazquez MD [facility] [place] [address] documented as of this encounter Visit Diagnoses Not on filedocumented in this encounter Care Teams Weigher And Grader Relationship Specialty Start Date End Date Marcio Devlin DO [address] [place] [address] PCP - General Family Medicine 11/11/17 documented as of this encounter
--- OUTSIDE RECORDS SUMMARY | 2024-04-08 02:31 | XMS_ITS | Encounter Summary ---
Author Organization [facility] Address [facility] [place] [address] Care Team Providers Care Fisher Clam Name Role Phone Marcio Devlin DO Primary Care Provider Encounter Details Date Type Department Care Team (Late st Contact Info) Description 10/09/2018 Refill [place] [address] Nico Campbell [facility] [address] Ankylosing spondylitis of cervical region Social History [...] encounter Miscellaneous Notes * Telephone Encounter - Mai Rendon [facility] - 10/09/2018 10:08 AM EST Specialty Pharmacy Referral; Mai Rendon [facility] Transfer of Services Kim Funes [address] [facility] [phone] Telephone Information: The - Specialty Pharmacy has received a prescription for Humira for patient Ms. Kim Funes 58 y.o. (1960). Due to a mandate from the patient's insurer, the prescription needs to [facility]. Spoke with patient to notify of this change and provided numberto reach the new filling pharmacy. A copy of patient's medication profile was offered to the accepting pharmacy. Additional instructions provided to patient about transfer: no The patient has been advised to call the [facility] at [phone] with any questions or concerns on this referral. Thank you, Mai Rendon RPH 10/09/18 10:09 AM Patient understands no changes to current drug regimen were made at this time. documented in this encounter Plan of Treatment Upcoming Encounters Date Type Department Care Team (Late st Contact Info) Description 04/19/2024 10:00 AM EDT Hospital Encounter Non-[place] [phone] Arrived 04/29/2024 9:50 AM EDT [place] [phone] [address] [facility] [place] [address] 04/29/2024 9:50 AM EDT [place] [phone] [facility] [place] [address] 06/07/2024 2:30 PM EDT TH Visit (TeleHealth) [place] [phone] [facility] [place] [address] 07/02/2024 2:00 PM EDT Appointment Non-[place] [address] [address] [facility] [place] [address] 07/02/2024 4:40 PM EDT Office Visit Cardiology at [address] [phone] [address] [facility] [place] [address] documented as of this encounter Visit Diagnoses Diagnosis Ankylosing spondylitis of cervical region Ankylosing spondylitis documented in this encounter Care Teams Fisher Clam Relationship Specialty Start Date End Date Marcio Devlin DO [address] [place] [address] PCP - General Family Medicine 11/11/17 documented as of this encounter
--- OUTSIDE RECORDS SUMMARY | 2024-04-08 02:31 | XMS_ITS | Encounter Summary ---
Author Organization [facility] [place] [address] Care Team Providers Care Aircraft Fuselage Framer Name Role Phone Marcio Devlin DO Primary Care Provider [phone] Reason for Referral * Diagnostic Test (Routine) - Closed Specialty Diagnoses / Procedures Referred By Contac t Referred To Contact Radiology Diagnoses Ankylosing spondylitis, unspecified site of spine Procedures DXA Central-Spine, Hip, And/Or Whole Body (Generic) Nico Campbell [facility] [place] [address] [facility] Xray [address] [place] [address] [place] [address] Referral ID Status Reason Start Date Expiration Date V isits Requested Visits Authorized [id number] Closed Specialty Service Requested 08/31/2018 08/31/2019 1 1 Reason for Visit * Diagnostic Test (Routine) - Closed Specialty Diagnoses / Procedures Referred By Contac t Referred To Contact Radiology Diagnoses Ankylosing spondylitis, unspecified site of spine Procedures DXA Central-Spine, Hip, And/Or Whole Body (Generic) Nico Campbell [facility] [place] [address] [facility] Rad Xray [address] [place] [address] Dr [place], MARIA ALEJANDRA [phone] Referral ID Status Reason Start Date Expiration Date V isits Requested Visits Authorized [id number] Closed Specialty Service Requested 08/31/2018 08/31/2019 1 1 Encounter Details Date Type Department Care Team (Latest Contact Info) Description 06/01/2019 12:55 PM EDT - 06/01/2019 11:59 PM EDT Hospital Encounter XRay at [address] [place] [address] Oc Gresham MD [facility] [place] [address] Ankylosing spondylitis, unspecified site of spine Discharge Disposition: Home Social History Tobacco Use [...] by mouth daily. SUMAtriptan (IMITREX) 20 mg/actuation [place], Non-Aerosol 1 spray as needed. 11/03/2017 metFORMIN [...] subcutaneously every 14 days. 3 kit 3 02/26/2019 11/15/2019 metoprolol succinate (TOPROL-XL) 100 mg Tablet Sustained [...] AM EDT Hospital Encounter Non-Invasive [place] [address] Arrived 04/29/2024 9:50 AM EDT Appointment MRI at [place] [phone] Luis Alfredo Velazquez MD [facility] [place] [address] 04/29/2024 9:50 AM EDT Appointment MRI at [place] [phone] Luis Alfredo Velazquez MD [facility] [place] [address] 06/07/2024 2:30 PM EDT TH Visit (TeleHealth) Gastroenterology at [place] [phone] Dajuan Rachel MD [facility] [place] [address] 07/02/2024 2:00 PM EDT Appointment Non-Invasive Cardiology Lab [place] [phone] Luis Alfredo Velazquez MD [facility] [place] [address] 07/02/2024 4:40 PM EDT Office Visit Cardiology at [address] [phone] Luis Alfredo Velazquez MD [facility] [place] [address] documented as of this encounter Procedures Procedure Name Priority Date/Time Associated Diagnosis Comments DXA CENTRAL SPINE, HIP, AND/OR WHOLE BODY (GENERIC) Routine 06/01/2019 1:55 PM EDT Ankylosing spondylitis, unspecified site of spine documented in this encounter Results * DXA Central Spine, Hip, and/or Whole Body (Generic) (06/01/2019 1:55 PM EDT) Anatomical Region Laterality Modality C-spine, Hip N/A Other Impressions 06/02/2019 5:54 PM EDT The measurements fulfill the WHO classification for low bone mass or osteopenia and they are decreasing since 2016. The rate of loss is 5% decrease over 3 years. The fracture risks are increased. Estimating Fracture Risk: The relationship between bone mineral density (BMD) and risk of fracture is well established. As BMD decreases, risk increases. Quantifying risk is difficult and is usually limited to estimation of the relative risk - a term which may have limited value when trying to discuss an individual's risk. Estimating the absolute risk for a patient requires an understanding of the incidence rate in a given population and consideration of multiple, partially independent, risk factors in addition to BMD. The World Health Organization (WHO) has developed a fracture risk prediction tool that calculates a ten-year risk of major osteoporotic fracture based on femoral neck bone density measurements and nine clinical risk factors for individuals who have not been treated for osteoporosis. This is available through an interactive web-based interface (http://www.shef.ac.uk/FRAX/) and can be used to estimate a given patient's absolute risk of major osteoporotic fracture or hip fracture over the next 10 years. These estimates may prove useful when discussing risk with a patient. It is important, however, to understand the tool's limitations and how a given individual's risk might differ from the tool's estimate. The tool does not take into account the dose-response associated with most risk factors. For example, the significant increase in risk associated with multiple prior fractures compared to a single prior fracture is not taken into account. Similarly, the location of a previous fracture, the amount of glucocorticoids and number of cigarettes smoked are not considered. These limitations are discussed in a Frequently Asked Questions section of the FRAX website which you are encouraged to review. DEXA data sheets with BMD measurements and plots are available in [employer] under the imaging tab. Paper copies will be sent to providers without [employer] access. If you have received this report without the data sheet and do not have access to [employer], please contact Radiology Floor Renovator at [phone] Friday thru Friday 8am-4pm. Thank you for letting us participate in the care of this patient. For questions regarding this report, please contact the number below. ? Narrative 06/02/2019 5:54 PM EDT EXAMINATION: DXA CENTRAL SPINE, HIP, AND/OR WHOLE BODY (GENERIC) CLINICAL HISTORY: follow up to 2015 DEXA for osteopenia, ,entered by ordering service TECHNIQUE: Scans were acquired at the lumbar spine, and right hip. FINDINGS: Femoral neck BMD: 0.704 ? g/cm2 Lowest T-score at the diagnostic region of interest: T-score: -1.7, TITA: Lumbar spine, WHO diagnosis: low bone mass or osteopoenia. . ......... Comparison......... Previous scan:2016 Total spine: Compared to the previous, -5 % change. Total hip: Compared to the previous scan, -5 % change. Procedure Note Dimple Viera MD - 06/02/2019 EXAMINATION: DXA CENTRAL SPINE, HIP, AND/OR WHOLE BODY (GENERIC) CLINICAL HISTORY: follow up to 2016 DEXA for osteopenia, ,entered byordering service TECHNIQUE: Scans were acquired at the lumbar spine, and right hip. FINDINGS: Femoral neck BMD: 0.704 g/cm2 Lowest T-score at the diagnostic region of interest: T-score: -1.7, TITA: Lumbar spine, WHO diagnosis: low bone mass orosteopoenia. . ......... Comparison......... Previous scan:2016 Total spine: Compared to the previous, -5 % change. Total hip: Compared to the previous scan, -5 % change. IMPRESSION The measurements fulfill the WHO classification for low bone mass orosteopenia and they are decreasing since 2016. The rate of loss is 5% decrease over3 years. The fracture risks are increased. Estimating Fracture Risk: The relationship between bone mineral density (BMD) and risk of fractureis well established. As BMD decreases, risk increases. Quantifying risk isdifficult and is usually limited to estimation of the relative risk - a term which mayhave limited value when trying to discuss an individual's risk. Estimatingthe absolute risk for a patient requires an understanding of the incidencerate in a given population and consideration of multiple, partially independent,risk factors in addition to BMD. The World Health Organization (WHO) has developed a fracture riskprediction tool that calculates a ten-year risk of major osteoporotic fracture basedon femoral neck bone density measurements and nine clinical risk factorsfor individuals who have not been treated for osteoporosis. This isavailable through an interactive web-based interface (http://www.shef.ac.uk/FRAX/)and can be used to estimate a given patient's absolute risk of majorosteoporotic fracture or hip fracture over the next 10 years. These estimates mayprove useful when discussing risk with a patient. It is important, however, to understand the tool's limitations and how a given individual's risk mightdiffer from the tool's estimate. The tool does not take into account thedose-response associated with most risk factors. For example, the significant increasein risk associated with multiple prior fractures compared to a single priorfracture is not taken into account. Similarly, the location of a previous fracture,the amount of glucocorticoids and number of cigarettes smoked are notconsidered. These limitations are discussed in a Frequently Asked Questions sectionof the FRAX website which you are encouraged to review. DEXA data sheets with BMD measurements and plots are available in [employer] the imaging tab. Paper copies will be sent to providers without [employer] access.If you have received this report without the data sheet and do not haveaccess to [employer], please contact Radiology Floor Renovator at [phone] Friday thr 8am-4pm. Thank you for letting us participate in the care of this patient. Forquestions regarding this report, please contact the number below. Oc Gresham MD [facility] DEXA ORDERABLES documented in this encounter Visit Diagnoses Diagnosis Ankylosing spondylitis, unspecified site of spine documented in this encounter Care Teams Aircraft Fuselage Framer Relationship Specialty Start Date End Date Marcio Devlin DO [address] [place] [address] PCP - General Family Medicine 11/11/17 documented as of this encounter
--- OUTSIDE RECORDS SUMMARY | 2024-04-08 02:31 | XMS_ITS | Encounter Summary ---
Author Organization [facility] Address [facility] [place] [address] Care Team Providers Care Science Manager Name Role Phone Marcio Devlin DO Primary Care Provider [phone] Encounter Details Date Type Department Care Team (Late st Contact Info) Description 07/13/2019 Telephone [place] [address] Gabe Fong MD [facility] [place] [address] Social History Tobacco Use Types Packs/Day Years [...] Telephone Encounter - Gabe Fong MD - 07/13/2019 2:40 PM EDT ----- Message from Oc Gresham MD sent at 06/03/2019 11:11 AM EDT ----- Regarding: this came to me by mistake ----- Message ----- From: Department, Radiology Sent: 06/02/2019 5:59 PM EDT To: Oc Gresham MD * Telephone Encounter - Gabe Fong MD - 07/13/2019 2:39 PM EDT ----- Message from Oc Gresham MD sent at 06/03/2019 11:11 AM EDT ----- Regarding: this came to me by mistake ----- Message ----- From: Department, Radiology Sent: 06/02/2019 5:59 PM EDT To: Oc Gresham MD documented in this encounter Plan of Treatment Upcoming Encounters Date Type Department Care Team (Late st Contact Info) Description 04/19/2024 10:00 AM EDT Hospital Encounter Non-Invasive Cardiology Lab [place] [phone] Arrived 04/29/2024 9:50 [place] [address] [address]quez [address] [facility] [place] [address] 04/29/2024 9:50 AM EDT Appointment MRI at [place] [phone] Luis Alfredo [address]quez MD [facility] [place] [address] 06/07/2024 2:30 PM EDT TH Visit (TeleHealth) Gastroenterology at [place] [phone] [facility] [place] [address] 07/02/2024 2:00 PM EDT Appointment Non-[place] [phone] [facility] [place] [address] 07/02/2024 4:40 PM EDT Office Visit Cardiology at [address] [phone] [address] [facility] [place] [address] documented as of this encounter Visit Diagnoses Not on filedocumented in this encounter Care Teams Science Manager Relationship Specialty Start Date End Date Marcio Devlin DO [address] [place] [address] PCP - General Family Medicine 11/11/17 documented as of this encounter
--- OUTSIDE RECORDS SUMMARY | 2024-04-08 02:31 | XMS_ITS | Encounter Summary ---
Author Organization [facility] Address [facility] [place] [address] Care Team Providers Care Leather Skinner Name Role Phone Marcio Devlin DO Primary Care Provider [phone] Reason for Visit * Reason Comments Post Op Encounter Details Date Type Department Care Team (Late st Contact Info) Description 04/21/2018 1:40 PM EDT Office Visit Obstetrics and Gynecology at [facility] [place] [phone] Liang Fong [place] [address] Post-operative state (Primary Dx) Social History Tobacco Use Types Packs/Day Years [...] Sign Reading Time Taken Comments Blood Pressure 108/70 04/21/2018 1:30 PM EDT Pulse 54 04/21/2018 1:30 PM EDT Temperature 36.6 ??C (97.8 ??F) 04/21/2018 1:30 PM ED T Respiratory Rate 14 04/21/2018 1:30 PM EDT Oxygen Saturation 96% 04/21/2018 1:30 PM EDT Inhaled Oxygen Concentration - - Weight 91.3 kg (201 lb 3.2 oz) 04/21/2018 1:30 P M EDT Height 167.6 cm (5' 6) 04/21/2018 1:30 PM EDT Body Mass Index 32.47 04/21/2018 1:30 PM EDT documented in this encounter Progress Notes * Liang Fong MD - 04/21/2018 1:40 PM EDT FEMALE PELVIC MEDICINE AND RECONSTRUCTIVE SURGERY POST OPERATIVE VISIT Patient Active Problem List Diagnosis Code ??? Ulcerative colitis K51.90 ??? DIFFICULT AIRWAY T88.4XXA ??? MÉNDEZ (nonalcoholic steatohepatitis) K75.81 ??? Lipid disorder E78.9 ??? Ankylosing spondylitis M45.9 ??? Hypertension I10 ??? GERD (gastroesophageal reflux disease) K21.9 ??? Obesity (BMI 30.0-34.9) E66.9 ??? History of migraine headaches Z86.69 ??? Mild asthma J45.998 ??? Type 2 diabetes mellitus without complication, without long-term current use of insulin E11.9 ??? 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 Date of visit: 04/21/2018 Patient name: Kim Funes Date of surgery: 03/10/18 Procedure: TVH, USVVS, S&P, Sling Pathology: Benign Subjective: Ms. Funes is s/p the above procedures. She has been tolerating a regular diet. Shedenies nausea and vomiting, and she has been afebrile since surgery. Since surgery, she reports: None x Continued vaginal bleeding New pelvic related pain Abnormal vaginal discharge Burning with urination Blood in urine Enuresis New prolapse symptoms since surgery Bladder Function Number of daytime voids: 5-6 Number of nocturia events: 0 Urinary incontinence since surgery (y/n): n If yes, [place] Incontinence Severity Index: How often do you experience urinary leakage? 0. Never 1. Less than once a month 2. A few times a month 3. A few times a week 4. Every day and/or night Value 0 How much urine do you lose each time? 0. None 1. Drops 2. Small Splashes 3. More Value 0 The Severity Index is the product of the two questions 0 - NONE 1-2 Slight 3-6 Moderate 8-9 Severe 12 Very severe SCORE: 0 If yes, leaks with: Event Presence Event Presence NONE n/a [place] Walking Cold Weather Running Anticipation of going to the lavatory Cough/Sneeze First morning void Lifting Running water Laughing Other Number of pads / day: n/a Pad type: n/a Voiding Dysfunction: Symptom Presence NONE x Straining to empty Incomplete emptying Weak stream Feeling the urge to void after voiding Dribbling Changes in position Difficulty initiating a stream Bowel Function Fecal incontinence since surgery? (stool/gas) no How many fecal incontinence episodes / week? n/a How often do you have bowel movements? 2-3/day Any new defecatory problems since surgery?: no IF so which defecatory problem?: Symptom Presence Symptom Presence NONE x Require laxatives regularly Difficulty emptying Less than three bowel movements / week Need to strain Urgency Hard stools Other Loose stools Treatment Outcome Satisfaction How would you describe your level of satisfaction with your treatment outcome? 0. Strongly UNsatisfied 1. UNsatisfied 2. Neither satisfied nor unsatisfied 3. Satisfied 4. Strongly satisfied Value 4 Would you recommend this therapy to a friend?: unsure How much has your treatment outcome met your before treatment expectation? 0. Strongly NOT met my before treatment expectations 1. Not met my before treatment expectations 2. Undecided 3. Met my before treatment expectations 4. Strongly met my before treatment expectations 3 OBJECTIVE: BP 108/70 Pulse 54 Temp 36.6 ??C (97.8 ??F) (Temporal) Resp 14 Ht 167.6 cm (5' 6) Wt 91.3 kg (201 lb 3.2 oz) SpO2 96% BMI 32.47 kg/m2 Bladder scan: Not performed Urine Dip: n/a General: normal appearing female, pleasant mood, normal speech Abdomen: Abdomen soft, non-tender, no masses. Surgical incision(s): well healed. Skin edges well applied. No evidence of erythema or induration. Back: Non-tender, without costovertebral angle or paraspinal tenderness Pelvic: Cough stress test (empty supine): negative External Genitalia: Vulva, [place]'s and [place] glands normal, urethra without tenderness or mass Vagina: normal Discharge?: no Cervix: absent Bimanual (uterus/adnexa): normal POP Q Measurements: Aa -1.5 Ba -1.5 C -8 GH rest, strain 3, 4 PB rest, strain 2, 3 TVL 8 Ap -2 Bp -2 D n/a Impression: Ms. Funes is a 58 y.o. year old woman now 6 wks s/p TVH, USVVS, AR, RP sling - doing well, no complaints Plan: Activity: resume normal activities Pelvic floor exercises 10 reps 2-3 times daily to maintain pelvic floor strength Return PRN Liang Fong MD Division of Female Pelvic Medicine/Reconstructive Surgery documented in this encounter Plan of Treatment Upcoming Encounters Date Type Department Care Team (Late st Contact Info) Description 04/19/2024 10:00 AM EDT Hospital Encounter Non-Invasive [place] [phone] Arrived 04/29/2024 9:50 AM EDT Appointment MRI at [place] [phone] Luis Alfredo Velazquez MD [facility] [address] 04/29/2024 9:50 AM EDT [place] [phone] Luis Alfredo Velazquez MD [facility] [place] [address] 06/07/2024 2:30 PM EDT TH Visit (TeleHealth) [place] [address] Dajuan Rachel MD [facility] DR GASTROENTEROLOGY DEPT. [place], [place] [phone] 07/02/2024 2:00 PM EDT Appointment Non-Invasive [place] [address] Luis Alfredo Velazquez MD [facility] [place] [address] 07/02/2024 4:40 PM EDT Office Visit Cardiology at [address] [phone] Luis Alfredo Velazquez MD [facility] [place] [address] documented as of this encounter Visit Diagnoses Diagnosis Post-operative state- Primary Other postprocedural status documented in this encounter Care Teams Leather Skinner Relationship Specialty Start Date End Date Marcio Devlin DO [address] [place] [address] PCP - General Family Medicine 11/11/17 documented as of this encounter
--- OUTSIDE RECORDS SUMMARY | 2024-04-08 02:31 | XMS_ITS | Encounter Summary ---
Author Organization [facility] Address [facility] [place] [address] Care Team Providers Care Byproduct Engineer Name Role Phone Marcio Devlin DO Primary Care Provider [phone] Reason for Referral * Diagnostic Test (Routine) - Closed Specialty Diagnoses / Procedures Referred By Contac t Referred To Contact Radiology Diagnoses Ankylosing spondylitis, unspecified site of spine Procedures DXA Central-Spine, Hip, And/Or Whole Body (Generic) Nico Campbell [facility] [place] [address] [place] [id number] Referral ID Status Reason Start Date Expiration Date V isits Requested Visits Authorized [id number] Closed Specialty Service Requested 08/31/2018 08/31/2019 1 1 Encounter Details Date Type Department Care Team (Late st Contact Info) Description 08/31/2018 10:30 AM EST Office Visit Rheumatology at [facility] [place] [address] Nico Campbell [facility] [place] [address] Ankylosing spondylitis, unspecified site of spine (Primary Dx) Social History Tobacco Use Types [...] Sign Reading Time Taken Comments Blood Pressure 127/67 08/31/2018 10:30 AM EST Pulse 59 08/31/2018 10:30 AM EST Temperature - - Respiratory Rate - - Oxygen Saturation 99% 08/31/2018 10:30 AM EST Inhaled Oxygen Concentration - - Weight 86.6 kg (191 lb) 08/31/2018 10:30 AM EST Height 167.6 cm (5' 6) 08/31/2018 10:30 AM EST Body Mass Index 30.83 08/31/2018 10:30 AM EST documented in this encounter Progress Notes * Nico Campbell DO - 08/31/2018 11:00 AM EST Rheumatology Outpatient Clinic Follow-up Visit PCP: Marcio Devlin DO [address] [place] [address] Rheumatological History: 1. UC associated Ankylosing Spondylitis [...] of erythema nodosum associated with UC MEDS: -Currently on Humira q2 weeks and SSZ-both on since beginning of 2010-tolerating well without ADRs -Controlling sx well--sx have been quiescent and stable for >1 year now on her current medications -options of MTX/leflunomide are limited by underlying Hx of MÉNDEZ. ? #MÉNDEZ: -S/P liver bx in 03/2010 -LFTS mildly elevated and stable. #S/P left hip replacement back in 2005 Interval History: Pt is a 57 yo female with PMHx of MÉNDEZ and UC with presenting for follow up who has been maintained on Humira and Sulfasalazine since beginning of 2010 and has been doing overall well in the past few office visit with no reports of flares or new sx and no known reported side effects from medications. ? -Currently, she reports no new or worsening sx -She reports she has been doing well from her . -No joint pains, no joint swelling or AM stiffness (at most 10-15 minutes) -She is taking a combo VitD and CA supplement BID. No fractures hx. -She had a DEXA scan in 2016 that was revewied with her that showed osteopenia. Discussed follow upon this as it has been two years, she is amenable. -She is tolerating her medications: 1) Humira 40 mg q2wks 2) SZS 1000 mg BID -No other meds taken OTC for issues regarding her . Past Medical History: Past Medical History: Diagnosis Date ??? Ankylosing spondylitis 02/21/2011 ??? Hepatitis ??? Hypertension ??? Mild asthma 02/24/2018 ??? Type 2 diabetes mellitus without complication, without long-term current use of insulin 02/24/2018 Fhx, Soc Hx, Allergies: Reviewed in eDH Physical Examination: BP 127/67 Pulse 59 Ht 167.6 cm (5' 6) Wt 86.6 kg (191 lb) SpO2 99% BMI 30.83 kg/m?? General: Well appearing, NAD HEENT: Mucous membranes are moist, no oral mucosal ulceration. Neck: Supple, no lymphadenopathy, full range of motion Cardiovascular: RRR, no m/r/g, normal S1/S2, 2+ radial artery pulses Lungs: CTA b/l no w/r/r Back: Nontender over the spine, paravertebral musculature and SI joint area, no warmth or erythema noted. Neuro: Alert and oriented x3. Skin: no obvious rashes or lesions noted in face, neck, upper chest, bilateral hands, forearms, legs Nails: no nail pitting or onycholysis MSK: intact passive and active ROM throughout the upper and lower extremity joints, no appreciated synovitis or tenderness in the hands, wrists,elbows, shoulders, knees, ankles and feet noted. Labs: Lab Results Component Value Date WBC 6.3 08/31/2018 HGB 14.6 08/31/2018 HCT 44.5 08/31/2018 PLATELET 184 08/31/2018 Labs from 08/31/2018: CBC w/ diff: WNL CMP: WNL Imaging: DEXA (03/04/2016): IMPRESSION The measurements satisfied the WHO classification for low bone mass or osteopenia. There is no significant change since 2011. Assessment: Pt is a 57 yo female with PMHx of MÉNDEZ and UC with presenting for follow up who has been maintained on Humira and Sulfasalazine since beginning of 2010 and has been overall been well controlled withouth sx and no flares. Exam his without synovitis, or other joint abnormalities in general. Labs have historically been good with except of known chronic mild elevations of her LFTs given her prior diagnosis of MÉNDEZ per bx (which are nml on today's CMP). Currently on Humira 40 mg q2wks and Sulfasalazine 1000 BID-reports adherence and no ADRs. No refills needed at this time per patient. DEXA scan is about 2 years old now with osteopenia. Patient reports taking VitD/Ca combo supplements. No hx of known fractures. Will repeat DEXA for re- evaluation, which she was amenable to. ?? PLAN: -Continue current meds: 1) Humira 40 mg r8xegqa 2) SZS 1000 mg BID -Check labs: CBC and CMP -DEXA ordered -Continued VitD and Ca supplements as she has been doing -F/U 6 months. -Patient understood and agreed to the above. Nico Campbell DO Rheumatology Fellow * Oc Gresham MD - 08/31/2018 10:30 AM EST Rheumatology Staff Fellow provided care Oc Gresham documented in this encounter Plan of Treatment Upcoming Encounters Date Type Department Care Team (Late st Contact Info) Description 04/19/2024 10:00 AM EDT Hospital Encounter Non-Invasive [place] [address] Arrived 04/29/2024 9:50 AM [place] [address] Luis Alfredo Velazquez MD [facility] [place] [address] 04/29/2024 9:50 AM [place] [phone] Luis Alfredo Velazquez MD [facility] [place] [address] 06/07/2024 2:30 PM EDT TH Visit (TeleHealth) Gastroenterology at [place] [phone] Dajuan Rachel MD [facility] [place] [address] 07/02/2024 2:00 PM EDT Appointment Non-Invasive Cardiology Lab [place] [phone] Luis Alfredo Velazquez MD [facility] [place] [address] 07/02/2024 4:40 PM EDT Office Visit Cardiology at [address] [address] Luis Alfredo Velazquez MD [facility] [place] [address] documented as of this encounter Procedures Procedure Name Priority Date/Time Associated Diagnosis Comments HEMOGRAM Routine 08/31/2018 11:34 AM EST Ankylosing spondylitis, unspecified site of spine DIFFERENTIAL, AUTOMATED Routine 08/31/2018 11:34 AM EST Ankylosing spondylitis, unspecified site of spine CBC (WITH DIFF) Routine 08/31/2018 11:34 AM EST Ankylosing spondylitis, unspecified site of spine COMPREHENSIVE METABOLIC PANEL (NON-FASTING) Routine 08/31/2018 11:34 AM EST Ankylosing spondylitis, unspecified site of spine documented [...] BMD measurements and plots are available in [employer] under the imaging tab. Paper copies will be sent to providers without [employer] access. If you have received this report without the data sheet and do not have access to [employer], please contact Radiology [facility] at [phone] Friday thru Friday 8am-4pm. Thank you for letting us participate in the care of this patient. For questions regarding this report, please contact the number below. ? Narrative 06/02/2019 5:54 PM EDT EXAMINATION: DXA CENTRAL SPINE, HIP, AND/OR WHOLE BODY (GENERIC) CLINICAL HISTORY: follow up to 2016 DEXA for osteopenia, ,entered by ordering service [...] BMD measurements and plots are available in [employer]under the imaging tab. Paper copies will be sent to providers without [employer] access.If you have received this report without the data sheet and do not haveaccess to [employer], please contact Radiology Corporate Responsibility Officer at [phone] Friday thruFriday 8am-4pm. Thank you for letting us participate in the care of this patient. Forquestions regarding this report, please contact the number below. Oc Gresham MD IMG DEXA ORDERABLES * Differential, Automated (08/31/2018 11:34 AM EST) Neutrophils % 46.1 % [facility] Neutr Abs (ANC) 2.91 1.70 - 6.10 x10(3)/[facility] Lymphocytes % 43.5 % [facility] Lymphocytes Abs 2.8 0.9 - 3.2 x10(3)/[facility] Monocytes % 7.4 % [facility] Monocyte Abs 0.5 0.3 - 0.9 x10(3)/[facility] Eosinophils % 2.2 % [facility] Eosinophils Abs 0.1 0.0 - 0.4 x10(3)/[facility] Basophils % 0.6 % [facility] Basophils Abs 0.0 0.0 - 0.1 x10(3)/[facility] Immature Gran % 0.20 % [facility] Comment: Immature granulocytes(IG's)percentage and absolute count will include metamyelocytes, myelocytes, and promyelocytes. Blood smears from CBCs yielding IG's will be scanned manually for concordance. If this scan disagrees with the automated IG or if promyelocytes are noted, a manual differential will be performed. Melanie Gran Abs 0.01 0.00 - 0.04 x10(3)/[facility] Blood specimen (specimen) 08/31/2018 11:34 AM EST 08/31/2018 11:47 AM EST Narrative Resulting Agency Comment Spec In Lab Nico Campbell DO HEMATOLOGY ORDERABLE S Performing Organization Address City/State/[facility] Co de Phone Number [facility] [place] [address] * Hemogram (08/31/2018 11:34 AM EST) WBC 6.3 4.0 - 9.5 x10(3)/[facility] RBC 4.76 4.00 - 5.21 x10(6)/[facility] Hemoglobin 14.6 11.7 - 15.5 gm/dL [facility] Hematocrit 44.5 35.7 - 45.8 % [facility] MCV 93.5 82.6 - 94.4 fL [facility] MCH 30.7 27.1 - 32.0 pg [facility] MCHC 32.8 31.7 - 35.0 gm/dL [facility] Platelets 184 145 - 357 x10(3)/[facility] RDWSD 44.2 37.0 - 46.0 fL [facility] RDWCV 13.0 11.5 - 14.1 % [facility] MPV 11.0 7.6 - 12.9 fL [facility] nRBC % Auto 0.0 % [facility] nRBC Abs Auto 0.000 0.000 - 0.000 x10(3)/mcL [facility] Blood specimen (specimen) 08/31/2018 11:34 AM EST 08/31/2018 11:47 AM EST Narrative Resulting Agency Comment Spec In Lab Nico Campbell DO HEMATOLOGY ORDERABLE S [facility] [place] [address] * Comprehensive metabolic panel (non-fasting) (08/31/2018 11:34 AM EST) Glucose Lvl 151 65 - 199 mg/dL [facility] Comment:Diabetes: >=200 mg/d L plus symptoms BUN 16 8 - 18 mg/dL [facility] Creatinine 0.87 0.70 - 1.20 mg/dL [facility] Sodium 143 135 - 145 mmol/L [facility] Potassium 4.1 3.5 - 5.0 mmol/L [facility] Comment: Please note: ??Patients with WBC >100,000 may have falsely elevated Potassium levels. ??For accurate Potassium quantification in these patients send serum separator tube (gold top) for subsequent determinations. ??Contact the Clinical Chemistry Laboratory if there are any questions. Chloride 106 98 - 107 mmol/L [facility] CO2 27 22 - 31 mmol/L [facility] Anion Gap 10 5 - 15 mmol/L [facility] Calcium 9.8 8.5 - 10.5 mg/dL [facility] Total Protein 7.6 6.1 - 8.0 gm/dL [facility] Albumin 4.1 3.2 - 5.2 gm/dL [facility] AST 25 0 - 30 unit/L [facility] ALT 26 0 - 30 unit/L [facility] Alk Phos 89 40 - 104 unit/L [facility] Total Bilirubin 0.4 0.2 - 1.3 mg/dL [facility] Estimated GFR 74 >=60 mL/min/1. 73 m?? [facility] Comment: The eGFR was calculated using the CKD-EPI equation. As with all creatinine based estimates of kidney function, eGFR values calculated with the CKD-EPI equation are not accurate in patients with acute kidney failure, extremes of body mass or the acutely ill. [email or web address]/[facility] eGFR 86 >=60 mL/min/1. 73 m?? [facility] Comment: The eGFR was calculated using the CKD-EPI equation. As with all creatinine based estimates of kidney function, eGFR values calculated with the CKD-EPI equation are not accurate in patients with acute kidney failure, extremes of body mass or the acutely ill. [email or web address]/[facility] Blood specimen (specimen) 08/31/2018 11:34 AM EST 08/31/2018 11:47 AM EST Narrative Resulting Agency Comment Spec In Lab Oc Gresham MD CHEMISTRY ORDERABLES Performing Organization Address City/State/[facility] Co de Phone Number [facility] [place] [address] documented in this encounter Visit Diagnoses Diagnosis Ankylosing spondylitis, unspecified site of spine- Primary Ankylosing spondylitis, unspecified site of spine documented in this encounter Care Teams Byproduct Engineer Relationship Specialty Start Date End Date Marcio Devlin DO [address] [place] [address] PCP - General Family Medicine 11/11/17 documented as of this encounter
--- OUTSIDE RECORDS SUMMARY | 2024-04-08 02:31 | XMS_ITS | Encounter Summary ---
Author Organization [facility] Address [facility] [place] [address] Care Team Providers Care Accreditation Specialist Name Role Phone Marcio Devlin DO Primary Care Provider [phone] Encounter Details Date Type Department Care Team (Late st Contact Info) Description 02/19/2019 [place] [phone] Nico Campbell [facility] [place] [address] Social History Tobacco Use Types Packs/Day Years [...] AM EDT Hospital Encounter Non-[place] [phone] Arrived 04/29/2024 9:50 [place] [address] Luis Alfredo Velazquez MD [facility] [place] [address] 04/29/2024 9:50 [place] [address] Luis Alfredo Velazquez MD [facility] [place] [address] 06/07/2024 2:30 PM EDT TH Visit (TeleHealth) Gastroenterology at [place] [phone] Dajuan Rachel MD [facility] [place] [address] 07/02/2024 2:00 PM EDT Appointment Non-Invasive Cardiology Lab [place] [phone] Luis Alfredo Velazquez MD [facility] [place] [address] 07/02/2024 4:40 PM EDT Office Visit Cardiology at [address] [address] Luis Alfredo Velazquez MD [facility] [place] [address] documented as of this encounter Visit Diagnoses Not on filedocumented in this encounter Care Teams Accreditation Specialist Relationship Specialty Start Date End Date Marcio Devlin DO [address] [place] [address] PCP - General Family Medicine 11/11/17 documented as of this encounter
--- OUTSIDE RECORDS SUMMARY | 2024-04-08 02:31 | XMS_ITS | Encounter Summary ---
Author Organization [facility] Address [facility] [place] [address] Care Team Providers Care Oil Recovery Operator Name Role Phone Marcio Devlin DO Primary Care Provider [phone] Encounter Details Date Type Department Care Team (Latest Contact Info) Description 03/09/2019 9:50 AM EDT - 03/09/2019 11:59 PM EDT Hospital Encounter XRay at [address] [place] [address] Glenn Choe MD [facility] [place] [address] Primary osteoarthritis of right hip Discharge Disposition: Home Social History Tobacco Use [...] PM EDT documented as of this encounter Discharge Instructions * Patient Instructions* Sugar Mckinney - 03/09/2019 10:19 AM EDT Post Injection Patient Injections You received an injection by Danika Carlton APRN in the diagnostic section of radiology. Procedure: Right Hip injection In the days following the injection: ??? Low intensity movement and exercise of the affected joint. ??? Avoid movements that worsen pain. During the first 48 hours following the injection you may experience mild discomfort at the injection site. If you experience pain or discomfort in the affected area, do the following: ??? Apply cold compress to the affected area. ??? If allowed by your physician, take an anti-inflammatory medication such as Acetaminophen 9example: Tylenol) or Aspirin. IMPORTANT The risk of infection exists whenever the skin is punctured. The risk can be minimized by keeping the injection site clean. However, be aware of the following signs of an infection: ??? Redness and swelling at the injection site. ??? Increased pain. ??? Fever and/or chills. ??? Decreased range of motion in the joint near the injection site. If you experience any of the signs of infection listed above, telephone the diagnostic section of radiology at [phone]. documented in this encounter Medications at Time of Discharge Medication Sig Dispensed Refills Start Date End Date PROAIR HFA 90 mcg/actuation HFA Aerosol Inhaler as needed. 07/20/2018 topiramate 50 mg capsule,sprinkle,ER 24hr TAKE ONE CAPSULE BY MOUTH TWICE A DAY 3 08/25/2018 aspirin 81 mg Tablet, Delayed Release (E.C.) Take 81 mg by mouth daily. SUMAtriptan (IMITREX) 20 mg/actuation [place]ina, Non-Aerosol 1 spray as needed. 11/03/2017 metFORMIN [...] AM EDT Hospital Encounter Non[place] [address] Arrived 04/29/2024 9:50 AM EDT Appointment MRI at [place] [phone] Luis Alfredo Velazquez MD [facility] [place] [address] 04/29/2024 9:50 AM [place] [address] Luis Alfredo Velazquez MD [facility] [place] [address] 06/07/2024 2:30 PM EDT TH Visit (TeleHealth) [place] [phone] Dajuan Rachel MD [facility] GASTROENTEROLOGY [place] [address] 07/02/2024 2:00 PM EDT Appointment Non-Invasive Cardiology Lab [address] Luis Alfredo Velazquez MD [facility] [place] [address] 07/02/2024 4:40 PM EDT Office Visit Cardiology at [place] [phone] Luis Alfredo Velazquez MD [facility] [place] [address] documented as of this encounter Procedures Procedure Name Priority Date/Time Associated Diagnosis Comments XR FLUORO INJECTION DRAINAGE JOINT LG RIGHT Routine 03/09/2019 10:37 AM EDT Primary osteoarthritis of right hip documented in this encounter Results * XR Fluoro Guided [...] please contact the number below. ? Narrative 03/09/2019 2:51 PM EDT HISTORY: Right hip pain, hip joint etiology? RIGHT HIP JOINT INJECTION UNDER FLUOROSCOPY TECHNIQUE: After an extensive conversation with the patient regarding risks and benefits, oral and written consent were obtained.? A pre- procedural time-out was performed, including review of the patient's relevant electronic medical record and allergies, as per [facility] protocol. The patient was placed supine on [...] were reviewed with patient. Procedure Note Danika Carlton APRN - 03/09/2019 HISTORY: Right hip pain, hip joint etiology? RIGHT HIP JOINT INJECTION UNDER FLUOROSCOPY TECHNIQUE: After an extensive conversation with the patient regarding risks andbenefits, oral and written consent were obtained.? A pre- procedural time-out was performed, including review of the patient's relevant electronic medicalrecord and allergies, as per [facility] protocol. The patient was placed supine on [...] contact the number below. Glenn Choe MD IM FLUORO ORDERABLE S documented in this encounter Visit Diagnoses Diagnosis Primary osteoarthritis of right hip Primary localized osteoarthrosis, pelvic region and thigh documented in this encounter Administered Medications Inactive Administered Medications - up to 3 most recent administrations Medication Order MAR Action Action Date Dose Rate Site ROpivacaine (PF) 5 mg/mL (0.5 %) 4 mL with triamcinolone acetonide 40 mg injection Intra-articular, ONCE, 1 dose, On 03/09/19 at 1045 Given 03/09/2019 10:30 AM EDT documented in this encounter Care Teams Oil Recovery Operator Relationship Specialty Start Date End Date Marcio Devlin DO [address] [place] [address] PCP - General Family Medicine 11/11/17 documented as of this encounter
--- OUTSIDE RECORDS SUMMARY | 2024-04-08 02:31 | XMS_ITS | Encounter Summary ---
Author Organization [facility] [place] [address] Care Team Providers Care Certified Travel Counselor Name Role Phone Marcio Devlin DO Primary Care Provider [phone] Encounter Details Date Type Department Care Team (Late st Contact Info) Description 11/09/2019 9:29 AM EST - 11/09/2019 1:03 PM EST Hospital En[place] [phone] Froilan Sahni MD [facility] [place] [address] Discharge Disposition: Home Social History Tobacco Use [...] Sign Reading Time Taken Comments Blood Pressure 139/62 11/09/2019 11:41 AM EST Pulse 64 11/09/2019 11:41 AM EST Temperature 36.5 ??C (97.7 ??F) 11/09/2019 9:42 AM ES T Respiratory Rate 16 11/09/2019 11:41 AM EST Oxygen Saturation 96% 11/09/2019 11:41 AM EST Inhaled Oxygen Concentration - - Weight 83 kg (183 lb) 11/09/2019 9:42 AM EST Height - - Body Mass Index 29.54 10/01/2019 1:38 PM EST documented in this encounter Discharge Instructions * Discharge Instructions* Birgit Berg, RN - 11/09/2019 11:46 AM EST Colonoscopy: What to Expect at Home [...] occurs, please contact your Doctor. Please call [phone] before 8pm Mon-Fri with problems, questions or concerns. If you call after 8pm or on weekends, call the Hospital at [phone] and ask to speak to the Translation Director contracting engineer and the straightening press operator will contact that person for you. When should you call for help? Call [phone] anytime you think you may need emergency [...] any problems. Where can you learn more? [email or web address] View your After Visit Summary and more online at [email or web address] If you would like to provide [...] cost to you. Content Version: 12.2 ?? [id number] [employer]. Care instructions adapted under license by [facility]. If you have questions about a medical condition or this instruction, always ask your healthcare professional. [employer] disclaims any warranty or liability for your [...] by mouth daily. SUMAtriptan (IMITREX) 20 mg/actuation Fifield, Non-Aerosol 1 spray as needed. 11/03/2017 metFORMIN [...] daily 10/15/201001/14 documented as of this encounter H&P Notes * Froilan Sahni MD - 11/09/2019 10:17 AM EST Patient Name: Kim Funes Patient Age: 59 y.o. Birthdate: 1960 Admit date: 11/09/2019 Attending Physician: Froilan Sahni MD Gastroenterology & Hepatology Pre-Procedure History and Physical Planned Procedure: Colonoscopy: Indication: surveillance UC on Humira and history of polyps for high risk surveillance Patient Active Problem List Diagnosis Code ??? [...] arthropathy M19.90 ??? Morning joint stiffness M25.60 Medications: Reviewed in EDH Allergies Allergen Reactions ??? Ibuprofen chest pains, Patient reported ??? Celebrex [Celecoxib] Rash ??? Lodine [Etodolac] Itching ??? Amoxicillin-Pot Clavulanate Nausea And Vomiting Nausea/Vomiting, patient reported ??? Cephalexin Nausea And Vomiting Nausea/Vomiting, Patient reported ??? Doxycycline Nausea And Vomiting Nausea/Vomiting, Patient reported Social History/Family History: Reviewed in EDH. No changes Exam: Most Recent Vitals: 11/09/19 0942 BP: 153/68 Pulse: 71 Resp: 16 Temp: 36.5 ??C (97.7 ??F) SpO2: 100% GEN: NAD, AAOX3 HEENT: NC/AT dryMM, anicteric Chest: CTAB Heart: RRR, nl s1, s2 Abdomen: normal bowel sounds, soft, non tender Assessment and Plan: Proceed with Colonoscopy: ASA Grade: ASA 2 - Patient with mild systemic disease with no functional limitations Mallampati: I (soft palate, uvula, fauces, tonsillar pillars visible) Sedation plan: IV Conscious Sedation Risks and benefits of the procedure were discussed with the patient. Risks discussed including bleeding, infection, reaction to anesthesia, perforation or other intraabdominal trauma, pancreatitis (if applicable), missing a cancer (if applicable) and/or other unforseen complication. Informed Consent signed by patient (or new accounts representative). documented in this encounter Plan of Treatment Upcoming Encounters Date Type Department Care Team (Late st Contact Info) Description 04/19/2024 10:00 AM EDT Hospital Encounter [place] [address] Arrived 04/29/2024 9:50 AM EDT Appointment MRI at [place] [address] Luis Alfredo Velazquez MD [facility] [address] 04/29/2024 9:50 AM EDT Appointment MRI at [place] [address] Luis Alfredo Velazquez MD [facility] [place] [address] 06/07/2024 2:30 PM EDT TH Visit (TeleHealth) Gastroenterology at [place] [address] Dajuan Rachel MD [facility] [place] [address] 07/02/2024 2:00 PM EDT Appointment Non-Invasive Cardiology Lab [place] [address] Luis Alfredo Velazquez MD [facility] [place] [address] 07/02/2024 4:40 PM EDT Office Visit Cardiology at [place] [phone] Luis Alfredo Velazquez MD [facility] [place] [address] documented as of this encounter Procedures Procedure Name Priority Date/Time Associated Diagnosis Comments SPECIMEN TO PATHOLOGY Routine 11/09/2019 11:33 AM EST SPECIMEN TO PATHOLOGY Routine 11/09/2019 11:33 AM EST SPECIMEN TO PATHOLOGY Routine 11/09/2019 11:33 AM EST SPECIMEN TO PATHOLOGY Routine 11/09/2019 11:33 AM EST SPECIMEN TO PATHOLOGY Routine 11/09/2019 11:33 AM EST SURGICAL PATHOLOGY REPORT Routine 11/09/2019 11:10 AM EST Colonoscopy, Biopsy ([id number]) 11/09/2019 10:48 AM EST hx poylps- 2 yr surveillance Colonoscopy, Diagnostic ([id number]) 11/09/2019 10:48 AM EST hx poylps- 2 yr surveillance COLONOSCOPY Routine 11/09/2019 9:34 AM EST documented in this encounter Results * Specimen to Pathology (11/09/2019 11:33 AM EST) AP Specimen 11/09/2019 11:3 3 AM EST 11/09/2019 11:33 AM EST Narrative [facility] - 11/09/2019 11:33 AM EST Specimen requisition ordered. ??Separate Pathology report to follow Froilan Sahni MD PATHOLOGY/CYTOLOG Y ORDERABLES [facility] [place] [address] * Specimen to Pathology (11/09/2019 11:33 AM EST) AP Specimen 11/09/2019 11:3 3 AM EST 11/09/2019 11:33 AM EST Narrative [facility] - 11/09/2019 11:33 AM EST Specimen requisition ordered. ??Separate Pathology report to follow Froilan Sahni MD PATHOLOGY/[place] [address] * Specimen to Pathology (11/09/2019 11:33 AM EST) AP Specimen 11/09/2019 11:3 3 AM EST 11/09/2019 11:33 AM EST Narrative [facility] - 11/09/2019 11:33 AM EST Specimen requisition ordered. ??Separate Pathology report to follow Froilan Sahni MD PATHOLOGY/CYTOLOG Y ORDERABLES Performing Organization Address City/[facility]/[place] [address] * Specimen to Pathology (11/09/2019 11:33 AM EST) AP Specimen 11/09/2019 11:3 3 AM EST 11/09/2019 11:33 AM EST Narrative [facility] - 11/09/2019 11:33 AM EST Specimen requisition ordered. ??Separate Pathology report to follow Froilan Sahni MD PATHOLOGY/CYTOLOG Y ORDERABLES Performing Organization Address City/[facility]/[place] [address] * Specimen to Pathology (11/09/2019 11:33 AM EST) AP Specimen 11/09/2019 11:3 3 AM EST 11/09/2019 11:33 AM EST Narrative [facility] - 11/09/2019 11:33 AM EST Specimen requisition ordered. ??Separate Pathology report to follow Froilan Sahni MD PATHOLOGY/CYTOLOG Y ORDERABLES Performing Organization Address City/[facility]/[place] [address] * Surgical Pathology Report (11/09/2019 11:10 AM EST) FINAL DIAGNOSIS (AP) [id number] ? Location: 4T; EA13; A The signing pathologist has (i) examined the relevant preparation(s) for the specimen(s) and (ii) rendered or confirmed the diagnosis(es). . ?Surgical Pathology DIAGNOSIS A - Ascending colon, biopsy: [...] suggestive of idiopathic inflammatory bowel disease. No dysplasia is seen. CR-PX Electronically signed by: ??Stephanie HYMAN, Dg [place] Verified: ??11/10/2019 ?Pathologist Performed at: ??-[facility] Dept. of Pathology, [place], [place] CLINICAL INFORMATION Specimen Submitted: A - Ascending colon bx B - Transverse colon bx C - Descending colon bx D - Sigmoid colon bx E - Proximal rectal bx Clinical History and Diagnosis: 59-year-old female history of ulcerative colitis, active colitis sigmoid and proximal rectum surveillance biopsy SPECIMEN PROCESSING A - Labeled/Fixative : Ascending colon BX, formalin. Quantity/Size: Four, 0.2-0.6 cm. Tissue Description: Soft, brown tissues. Sections/Process ing: Submitted en toto ??in 1 cassette labeled A1. B - Labeled/Fixative : Transverse colon BX, formalin. Quantity/Size: Five, 0.2-0.3 cm. Tissue Description: Soft, brown tissues. Sections/Process ing: Submitted en toto ??in 1 cassette labeled B1. C - Labeled/Fixative : Descending colon BX, formalin. Quantity/Size: Four, 0.2-0.3 cm. Tissue Description: Soft, brown tissues. . SPECIMEN PROCESSING Sections/Process ing: Submitted en toto ??in 1 cassette labeled C1. D - Labeled/Fixative : Sigmoid colon BX, formalin. Quantity/Size: Five, 0.1-0.3 cm. Tissue Description: Soft, brown tissues. Sections/Process ing: Submitted en toto ??in 1 cassette labeled D1. E - Labeled/Fixative : Proximal rectal BX, formalin. Quantity/Size: Four, 0.1-0.4 cm. Tissue Description: Soft, brown tissues. Sections/Process ing: Submitted en toto ??in 1 cassette labeled E1. ??elisa 11/10/2019 4:44 PM EST [facility] 11/09/2019 11:1 0 AM EST Froilan Sahni MD PATHOLOGY/CYTOLOG Y ORDERABLES [facility] [place] [address] * COLONOSCOPY (11/09/2019 9:34 AM EST) COLONOSCOPY [facility] Endoscopy ___ Procedure Date: 11/09/2019 9:34 AM ? Patient Name: Kim Funes ? N: [id number] ? Date of : 1960 ? Age: 59 ? Order #: [id number] ? Instrument Name: [id number] ? ___ Procedure: ? Colonoscopy Indications: ? High risk colon cancer surveillance: ? Ulcerative pancolitis of 8 (or more) ? years duration Patient Profile: ? This is a 59 year old female. This ? patient has ulcerative pancolitis, is ? taking adalimumab and is experiencing ? mild symptoms. Providers: ? Froilan Sahni MD, Avani Hayes ? Sarah, FRANCESCA, Lawrence Natarajan Referring : ?Marcio Devlin, DO Medicines: ? Midazolam 4.5 mg IV, Fentanyl 225 ? micrograms IV Complications: ? No immediate complications. ___ Procedure: ? Pre-Anesthesia Assessment: ? - Prior to the procedure, a History ? and Physical was performed, and ? patient medications and allergies ? were reviewed. The patient's ? tolerance of previous anesthesia was ? also reviewed. The risks and benefits ? of the procedure and the sedation ? options and risks were discussed with ? the patient. All questions were ? answered, and informed consent was ? obtained. Prior Anticoagulants: The ? patient has taken no previous ? anticoagulant or antiplatelet agents. ? ASA Grade Assessment: II - A patient ? with mild systemic disease. After ? reviewing the risks and benefits, the ? patient was deemed in satisfactory ? condition to undergo the procedure. ? The procedure, indications, benefits, ? [...] and under direct visualization, ? advanced to 15 cm into the ileum. ? Careful inspection was made as the ? colonoscope was withdrawn. The ? colonoscopy was performed without ? difficulty. The patient tolerated the ? procedure well. The quality of the ? bowel preparation was adequate and ? good. The terminal ileum, the ? appendiceal orifice and the rectum ? were photographed. Scope withdrawal ? time was 20 minutes. ? Findings: ? External hemorrhoids were found on perianal exam. ? The perianal and digital rectal examinations were ? otherwise normal. ? The terminal ileum appeared normal. ? The distal 5-6 cm of the rectum was spared and ? appeared normal. ? There was luminal narrowing with a pipe-like tubular ? rectum and sigmoid in the proximal rectum and distal ? sigmoid extending from 6m to 25cm. Inflammation was ? characterized by congestion (edema), erosions, ? granularity, linear erosions, loss of vascularity, ? mucus, confluent ulcerations, serpentine ulcerations ? and shallow ulcerations was found in a continuous and ? circumferential pattern from the proximal rectum to ? the sigmoid colon at 25cm. This was moderate to ? severe. There was scattered patchy mild inflammation ? from 25-40 cm. ? Beyond the sigmoid colon the colon appeared normal ? including the descending, transverse and ascending ? colon/cecum. Biopsies were taken with a cold forceps ? for histology in 5 jars (proximal rectum, sigmoid, ? descending, transverse and ascending). ? The terminal ileum appeared normal. ? Moderate Sedation: ? Moderate (conscious) sedation was administered by the ? endoscopy nurse and supervised by the endoscopist. ? The patient's oxygen saturation, heart rate, blood ? pressure and response to care were monitored. ? I was present during the intraservice time as ? documented by the sedation RN. Impression: ?- The examined portion of the ileum ? was normal. ? - The distal 5-6 cm of the rectum ? appear normal, no active inflammation. ? - Ulcerative colitis. Inflammation ? was found from the rectum to the ? sigmoid colon. This was moderate to ? severe from 5-25cm with luminal ? narrowing. Biopsied. ? - Descending, transverse and ? ascending appear ananya. Biopsied. ? - The examined portion of the ileum ? was normal. Recommendation: ?- Await pathology results. ? - Repeat colonoscopy interval to be ? determined after review of pathology. ? - Follow-up in IBD Clinic to be ? arranged. ? - Will need Humira (Adalimumab) drug ? level for evaluation of ADA ? antibodies and likely change in ? therapy. ? - Check Labs today including CBC, ? CMP, CRP and repeat HBV screen and ? Quant gold in anticipation of therapy ? change. ? Attending Participation: ? I personally performed the entire procedure. ? I was present during the intraservice time as ? documented by the sedation RN. ? Dr. Misael Sahni __ Froilan Sahni MD 11/09/2019 12:03:27 PM Number of Addenda: 0 Note Initiated On: 11/09/2019 9:34 AM PROVATION 11/09/2019 9:34 AM EST Marcio Devlin DO GENERAL SURGICAL ORD ERABLES PROVATION documented in this encounter Visit Diagnoses Not on filedocumented in this encounter Administered Medications Inactive Administered Medications - up to 3 most recent administrations Medication Order MAR Action Action Date Dose Rate Site lactated ringers infusion 100 mL/hr, Intravenous, CONTINUOUS, Starting on Fri11/09/19 at 1000, Until Fri11/09/19 at 1246, Endoscopy (Day of Procedure) New Bag 11/09/2019 9:57 AM EST 100 mL/hr 100 mL/hr documented in this encounter Active and Recently Administered Medications Times are shown in EST. Continuous Medication Order 11/07/2019 11/08/2019 11/09/2019 lactated ringers infusion (CANCELED) 100 mL/hr, Intravenous, CONTINUOUS, Starting on Fri11/09/19 at 1000, Until Tu11/09/19 at 1246, Endoscopy (Day of Procedure) 0957 (New Bag - Prov ider: Abby Christie RN) PRN Medication Order 11/07/2019 11/08/2019 11/09/2019 fentaNYL 50 mcg/mL multi-dose injection (CANCELED) ONCE PRN, Starting on 11/09/19 at 1053, Until 11/09/19 at 1508, Intra-Operative (Intra-Procedure), Routine 1053 (Given - Provid er: Avani Smith RN)1057 (Given - Provider: Avani Smith RN)1104 (Given - Provider: Avani Smith RN)1110 (Given - Provider: Avani Smith RN) midazolam (PF) (VERSED) multi-dose injection (CANCELED) ONCE PRN, Starting on 11/09/19 at 1053, Until 11/09/19 at 1508, Intra-Operative (Intra-Procedure), Routine 1053 (Given - Provid er: Avani Smith RN)1057 (Given - Provider: Avani Smith RN)1104 (Given - Provider: Avani Smith RN)1110 (Given - Provider: Avani Smith RN) documented in this encounter Care Teams Certified Travel Counselor Relationship Specialty Start Date End Date Marcio Devlin DO [address] [place] [address] PCP - General Family Medicine 11/11/17 documented as of this encounter
--- OUTSIDE RECORDS SUMMARY | 2024-04-08 02:31 | XMS_ITS | Encounter Summary ---
Author Organization [facility] [place] [address] Care Team Providers Care Pipe Fitter [employer] Sprinkler [employer] Name Role Phone Marcio Devlin DO Primary Care Provider [phone] Reason for Visit * Reason Onset Date Comments Post Procedure Call 03/12/2018 Encounter Details Date Type Department Care Team (Late st Contact Info) Description 03/12/2018 Telephone [place]stetrics [place] [address] Leidy Saravia RN Post Procedure Call Social History Tobacco [...] encounter Miscellaneous Notes * Telephone Encounter - Leidy Saravia RN - 03/12/2018 9:55 AM EDT POST-OP TELEPHONE UPDATE Date of Surgery: 03/10/18 HYSTERECTOMY, VAGINAL, REMOVAL TUBE(S) & OR OVARY(S) (WRVU 15.94) (N/A) COLPORRHAPHY ANTERIOR-POSTERIOR; INC CYSTOURETHROSCOPY (WRVU 14.44) (N/A) URETHRAL SUSPENSION, SLING\FASCIA OR SYNTHETIC (WRVU 12.13) (N/A) COLPOPEXY, VAGINAL, INTRAPERITONEAL APPROACH Overall well-being: I am doing okay Pain?: 11/22 Pain medication working(Y/N)?: Using Naprosyn with relief Location of pain: Pelvic cramping Bladder function: voiding without difficulty Bowel function: No BM but passing flatus, taking Colace BID may increase if needed Ambulating: Yes Tolerating solids / liquids: well-tolerated Dressings: none Incisions: clean, dry and intact Vaginal bleeding: spotting Fever: none Post Op appointment booked? HCK appt booked Instructions: We reviewed phone contacts. The patient will call triage at during daytime hours or during the evening or weekends and ask for the prism inspector retail consultant if she is having problems. LEIDY SARAVIA RN documented in this encounter Plan of Treatment Upcoming Encounters Date Type Department Care Team (Late st Contact Info) Description 04/19/2024 10:00 AM EDT Hospital Encounter Non-Invasive [place] [phone] Arrived 04/29/2024 9:50 [place] [phone] Luis Alfredo Velazquez MD [facility] [place] [address] 04/29/2024 9:50 [place] [phone] Luis Alfredo Velazquez MD [facility] [place] [address] 06/07/2024 2:30 PM EDT TH Visit (TeleHealth) [place] [phone] Dajuan Rachel MD [facility] [place] [address] 07/02/2024 2:00 PM EDT Appointment Non-Invasive [place] [phone] Luis Alfredo Velazquez MD [facility] [place] [place] [address] 07/02/2024 4:40 PM EDT Office Visit Cardiology at [address] [phone] Luis Alfredo Velazquez MD [facility] [place] [place] [address] documented as of this encounter Visit Diagnoses Not on filedocumented in this encounter Care Teams Pipe Fitter [employer] Relationship Specialty Start Date End Date Marcio Devlin DO [address] [place] [address] PCP - General Family Medicine 11/11/17 documented as of this encounter
--- OUTSIDE RECORDS SUMMARY | 2024-04-08 02:31 | XMS_ITS | Encounter Summary ---
Author Organization [facility] [place] [address] Care Team Providers Care Channel Development Manager Name Role Phone Marcio Devlin DO Primary Care Provider [phone] Encounter Details Date Type Department Care Team (Late st Contact Info) Description 09/30/2019 Specialty [place] [address] Juan Carlos Joseph Social History [...] AM EDT Hospital Encounter Non-[place] [phone] Arrived 04/29/2024 9:50 AM [place] [phone] Luis Alfredo Velazquez MD [facility] [place] [address] 04/29/2024 9:50 AM EDT Appointment MRI at [place] [phone] Luis Alfredo Velazquez MD [facility] [place] [address] 06/07/2024 2:30 PM EDT TH Visit (TeleHealth) Gastroenterology at [address] Dajuan Rachel MD [facility] [place] [address] 07/02/2024 2:00 PM EDT Appointment Non-Invasive Cardiology Lab [place] [phone] Luis Alfredo Velazquez MD [facility] [place] [address] 07/02/2024 4:40 PM EDT Office Visit Cardiology at [address] [phone] Luis Alfredo Velazquez MD [facility] [place] [address] documented as of this encounter Visit Diagnoses Not on filedocumented in this encounter Care Teams Channel Development Manager Relationship Specialty Start Date End Date Marcio Devlin DO [address] [place] [address] PCP - General Family Medicine 11/11/17 documented as of this encounter
--- OUTSIDE RECORDS SUMMARY | 2024-04-08 02:31 | XMS_ITS | Encounter Summary ---
Author Organization [facility] Address [facility] [place] [address] Care Team Providers Care Assistant Center Director Name Role Phone Marcio Devlin DO Primary Care Provider [phone] Reason for Visit * Reason Comments Follow-up Encounter Details Date Type Department Care Team (Late st Contact Info) Description 06/01/2019 2:30 PM EDT Office [place] [address] Gabe Fong MD [facility] [place] [address] High risk medication use; Inflammatory arthropathy; Morning joint stiffness; Ankylosing spondylitis, unspecified site of spine Social [...] Sign Reading Time Taken Comments Blood Pressure 121/71 06/01/2019 2:28 PM EDT Pulse 61 06/01/2019 2:28 PM EDT Temperature 36.7 ??C (98 ??F) 06/01/2019 2:28 PM EDT Respiratory Rate 18 06/01/2019 2:28 PM EDT Oxygen Saturation 99% 06/01/2019 2:28 PM EDT Inhaled Oxygen Concentration - - Weight 84.8 kg (187 lb) 06/01/2019 2:28 PM EDT Height 167.6 cm (5' 6) 06/01/2019 2:28 PM EDT Body Mass Index 30.18 06/01/2019 2:28 PM EDT documented in this encounter Progress Notes * Gabe Fong MD - 06/01/2019 2:30 PM EDT Rheumatology Follow-up Note PCP: Marcio Devlin DO [address] [place] [id number] Rheumatological History: 1. UC associated Ankylosing Spondylitis [...] or known from current medication regimen. She reports no new worsening symptoms, no new hip pain, lower back pain . Am stiffness < 15minutes . No joint swelling, rednes or warmth or [...] trying to tolerate for years now. 2) SZZ 1000 mg BID (prescribed by PCP) -Recent labs reviewed with patient and CBC and CMP WNL Past Medical History: Past Medical History: Diagnosis Date ??? Ankylosing spondylitis 02/21/2011 ??? Hepatitis ??? Hypertension ??? Mild asthma 02/24/2018 ??? Type 2 diabetes mellitus without complication, without long-term current use of insulin 02/24/2018 Fhx, Soc Hx, Allergies: Reviewed in eDH Physical Examination: BP 121/71 Pulse 61 Temp 36.7 ??C (98 ??F) (Oral) Resp 18 Ht 167.6 cm (5' 6) Wt 84.8 kg (187 lb) SpO2 99% BMI 30.18 kg/m?? General: Well appearing, NAD HEENT: Mucous membranes are moist, no oral mucosal ulceration. Neck: Supple, no lymphadenopathy, full range of motion Cardiovascular: RRR, Lungs: CTA b/l Back: Nontender over the spine, paravertebral musculature and SI joint area. No warmth or erythema noted. Neuro: Alert and oriented x3. Skin: no obvious rashes or lesions noted in face, neck, upper chest, bilateral hands, forearms, legs Nails: no nail pitting or onycholysis MSK: intact ROM throughout the upper and lower extremity joints no appreciated synovitis or tenderness in the hands, wrists, elbows, shoulders, knees, ankles and feet noted. No TTP Labs: Lab Results Component Value Date WBC 8.8 02/18/2019 HGB 14.4 02/18/2019 HCT 44.3 02/18/2019 PLATELET 210 02/18/2019 Labs from 08/31/2018: CBC w/ diff: WNL [...] with known or reported ADRs from medications. 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 ?? PLAN: -Continue current meds: 1) Humira 40 mg [id number] 2) SZS 1000 mg BID -Check labs [...] C-scope screening given her UC dx. -F/U 4 months. -Patient understood and agreed to the above. Gabe Fong MD Rheumatology Fellow Orders Placed This Encounter Procedures ??? Hepatic Function Panel ??? Albumin Level ??? CBC (with Diff) ??? CRP, acute inflammation ??? Creatinine ??? Sedimentation rate ??? Uric acid ??? CRP, acute inflammation ??? Hepatic Function Panel ??? Creatinine ??? Albumin Level ??? CBC (with Diff) ??? Sedimentation rate documented in this encounter Miscellaneous Notes * Addendum Note - Allie Morris - 06/01/2019 2:30 PM EDTAddended by: ALLIE MORRIS on: 06/01/2019 03:12 PM Modules accepted: Orders documented in this encounter Plan of Treatment Upcoming Encounters Date Type Department Care Team (Late st Contact Info) Description 04/19/2024 10:00 AM EDT Hospital Encounter Non-Invasive [place] [phone] Arrived 04/29/2024 9:50 AM EDT [place] [phone] Luis Alfredo Velazquez MD [facility] [place] [address] 04/29/2024 9:50 AM EDT Appointment MRI at [place] [phone] Luis Alfredo Velazquez MD [facility] [place] [address] 06/07/2024 2:30 PM EDT TH Visit (TeleHealth) Gastroenterology at [place] [phone] Dajuan Rachel MD [facility] [place] [address] 07/02/2024 2:00 PM EDT Appointment Non-Invasive [place] [phone] Luis Alfredo Velazquez MD [facility] [place] [address] 07/02/2024 4:40 PM EDT Office Visit Cardiology at [address] [phone] Luis Alfredo Velazquez MD [facility] [place] [address] documented as of this encounter Procedures Procedure Name Priority Date/Time Associated Diagnosis Comments HC C-REACTIVE PROTEIN Routine 06/01/2019 3:22 PM EDT High risk medication use Inflammatory arthropathy Morning joint stiffness Ankylosing spondylitis, unspecified site of spine HEMOGRAM Routine 06/01/2019 3:22 PM EDT High risk medication use Inflammatory arthropathy Morning joint stiffness Ankylosing spondylitis, unspecified site of spine DIFFERENTIAL, AUTOMATED Routine 06/01/2019 3:22 PM EDT High risk medication use Inflammatory arthropathy Morning joint stiffness Ankylosing spondylitis, unspecified site of spine HC CREATININE Routine 06/01/2019 3:22 PM EDT High risk medication use Inflammatory arthropathy Morning joint stiffness Ankylosing spondylitis, unspecified site of spine HC ESR-SEDIMENTATION RATE, BLOOD Routine 06/01/2019 3:22 PM EDT High risk medication use Inflammatory arthropathy Morning joint stiffness Ankylosing spondylitis, unspecified site of spine HC CBC,PLT & AUTO DIFF Routine 06/01/2019 3:22 PM EDT High risk medication use Inflammatory arthropathy Morning joint stiffness Ankylosing spondylitis, unspecified site of spine HC URIC ACID, SERUM Routine 06/01/2019 3 :22 PM EDT High risk medication use Inflammatory arthropathy Morning joint stiffness Ankylosing spondylitis, unspecified site of spine HEPATIC FUNCTION PANEL Routine 06/01/2019 3:22 PM EDT High risk medication use Inflammatory arthropathy Morning joint stiffness Ankylosing spondylitis, unspecified site of spine documented in this encounter Results * (ABNORMAL) Differential, Automated (06/01/2019 3:22 PM EDT) Neutrophils % 51.6 % [facility] Neutr Abs (ANC) 5.62 1.70 - 6.10 x10(3)/mc L [facility] Lymphocytes % 34.7 % [facility] Lymphocytes Abs 3.8(H) 0.9 - 3.2 x10(3)/mc L [facility] Monocytes % 9.9 % [facility] Monocyte Abs 1.1(H) 0.3 - 0.9 x10(3)/mc L [facility] Eosinophils % 3.0 % [facility] Eosinophils Abs 0.3 0.0 - 0.4 x10(3)/mc L [facility] Basophils % 0.5 % [facility] Basophils Abs 0.0 0.0 - 0.1 x10(3)/mc L [facility] Immature Gran % 0.30 % [facility] Comment: Immature granulocytes(IG's)percentage and absolute count will include metamyelocytes, myelocytes, and promyelocytes. Blood smears from CBCs yielding IG's will be scanned manually for concordance. If this scan disagrees with the automated IG or if promyelocytes are noted, a manual differential will be performed. Melanie Gran Abs 0.03 0.00 - 0.04 x10(3)/mc L [facility] Blood specimen (specimen) 06/01/2019 3:22 PM EDT 06/01/2019 3:46 PM EDT Narrative Resulting Agency Comment Spec In Lab Gabe Fong MD HEMATOLOGY ORDERABLE S [facility] [place] [address] * (ABNORMAL) Hemogram (06/01/2019 3:22 PM EDT) WBC 10.9(H) 4.0 - 9.5 x10(3)/[facility] RBC 4.70 4.00 - 5.21 x10(6)/[facility] Hemoglobin 14.3 11.7 - 15.5 gm/dL [facility] Hematocrit 44.1 35.7 - 45.8 % [facility] MCV 93.8 82.6 - 94.4 fL [facility] MCH 30.4 27.1 - 32.0 pg [facility] MCHC 32.4 31.7 - 35.0 gm/dL [facility] Platelets 238 145 - 357 x10(3)/[facility] RDWSD 46.2(H) 37.0 - 46.0 fL [facility] RDWCV 13.3 11.5 - 14.1 % [facility] MPV 10.8 7.6 - 12.9 fL [facility] nRBC % Auto 0.0 % [facility] nRBC Abs Auto 0.000 0.000 - 0.000 x10(3)/mcL [facility] Blood specimen (specimen) 06/01/2019 3:22 PM EDT 06/01/2019 3:46 PM EDT Narrative Resulting Agency Comment Spec In Lab Gabe Fong MD HEMATOLOGY ORDERABLE S Performing Organization Address [facility] Co de Phone Number [facility] [place] [address] * (ABNORMAL) Hepatic Function Panel (06/01/2019 3:22 PM EDT) Total Protein 8.4(H) 6.1 - 8.0 gm/dL [facility] Albumin 4.1 3.2 - 5.2 gm/dL [facility] AST 19 0 - 30 unit/L [facility] ALT 15 0 - 30 unit/L [facility] Alk Phos 91 35 - 105 unit/L [facility] Total Bilirubin 0.2 0.2 - 1.3 mg/dL [facility] Bili, Direct <0.1 0.0 - 0.3 mg/dL [facility] Blood specimen (specimen) 06/01/2019 3:22 PM EDT 06/01/2019 3:46 PM EDT Narrative Resulting Agency Comment Spec In Lab Gabe Fong MD CHEMISTRY ORDERABLES Performing Organization Address [facility] Co de Phone Number [facility] [place] [address] * (ABNORMAL) CRP, acute inflammation (06/01/2019 3:22 PM EDT) CRP 8.4(H) <=4.9 mg/L [facility] Blood specimen (specimen) 06/01/2019 3:22 PM EDT 06/01/2019 3:46 PM EDT Narrative Resulting Agency Comment Spec In Lab Gabe Fong MD CHEMISTRY ORDERABLES Performing Organization Address City/[facility]/ZIP Co de Phone Number [facility] [place] [address] * Creatinine (06/01/2019 3:22 PM EDT) Creatinine 0.79 0.70 - 1.20 mg/dL [facility] Estimated GFR 83 >=60 mL/min/1.7 3 m?? [facility] Comment: The eGFR was calculated using the CKD-EPI equation. As with all creatinine based estimates of kidney function, eGFR values calculated with the CKD-EPI equation are not accurate in patients with acute kidney failure, extremes of body mass or the acutely ill. http://[employer]/[facility] eGFR 96 >=60 mL/min/1.7 3 m?? [facility] Comment: The eGFR was calculated using the CKD-EPI equation. As with all creatinine based estimates of kidney function, eGFR values calculated with the CKD-EPI equation are not accurate in patients with acute kidney failure, extremes of body mass or the acutely ill. http://[employer]/DHnkf Blood specimen (specimen) 06/01/2019 3:22 PM EDT 06/01/2019 3:46 PM EDT Narrative Resulting Agency Comment Spec In Lab Gabe Fong MD CHEMISTRY ORDERABLES Performing Organization Address [facility] Co de Phone Number [facility] [place] [address] * Sedimentation rate (06/01/2019 3:22 PM EDT) Sed Rate 11 0 - 20 mm/hr [facility] Blood specimen (specimen) 06/01/2019 3:22 PM EDT 06/01/2019 3:46 PM EDT Narrative Resulting Agency Comment Spec In Lab Gabe Fong MD HEMATOLOGY ORDERABLE S Performing Organization Address City/[facility]/ZIP Co de Phone Number [facility] [place] [address] * Uric acid (06/01/2019 3:22 PM EDT) Uric Acid 6.1 2.5 - 6.5 mg/dL [facility] Blood specimen (specimen) 06/01/2019 3:22 PM EDT 06/01/2019 3:46 PM EDT Narrative Resulting Agency Comment Spec In Lab Gabe Fong MD CHEMISTRY ORDERABLES [facility] [place] [address] documented in this encounter Visit Diagnoses Diagnosis High risk medication use Encounter for long-term (current) use of other medications Inflammatory arthropathy Arthropathy, unspecified, site unspecified Morning joint stiffness Stiffness of joint, not elsewhere classified, unspecified site Ankylosing spondylitis, unspecified site of spine documented in this encounter Care Teams Assistant Center Director Relationship Specialty Start Date End Date Marcio Devlin DO [address] [place] [address] PCP - General Family Medicine 11/11/17 documented as of this encounter
--- OUTSIDE RECORDS SUMMARY | 2024-04-08 02:31 | XMS_ITS | Encounter Summary ---
Author Organization [facility] Address [facility] [place] [address] Care Team Providers Care Side Stitching Machine Operator Name Role Phone Marcio Devlin DO Primary Care Provider [phone] Encounter Details Date Type Department Care Team (Late st Contact Info) Description 10/01/2019 2:00 PM EST Office Visit Rheumatology at [facility] [place] [phone] Gabe Fong MD [facility] [place] [address] Inflammatory arthropathy; Ulcerative colitis without complications, unspecified location; Medication monitoring encounter; High risk medication use [...] Sign Reading Time Taken Comments Blood Pressure 116/60 10/01/2019 1:38 PM EST L a rm Pulse 67 10/01/2019 1:38 PM EST Temperature 36.3 ??C (97.4 ??F) 10/01/2019 1:38 PM ES T Respiratory Rate - - Oxygen Saturation 100% 10/01/2019 1:38 PM EST Inhaled Oxygen Concentration - - Weight 83 kg (183 lb) 10/01/2019 1:38 PM EST Height 167.6 cm (5' 6) 10/01/2019 1:38 PM EST Body Mass Index 29.54 10/01/2019 1:38 PM EST documented in this encounter Progress Notes * Gabe Fong MD - 10/01/2019 2:00 PM EST Rheumatology Follow-up Note PCP: Marcio Devlin, [address] [place] [address] Rheumatological History: 1. UC associated Ankylosing Spondylitis [...] new hip pain, lower back pain . No swelling, redness or wamrth Am stiffness < 15minutes . No joint swelling, rednes or warmth or pain -She denies any uveitis sx or new or worsening IBD sx, low back sx, new rashes -She had a DEXA scan in 2015 that was revewied with her that showed osteopenia. Past Medical History: Past Medical History: Diagnosis Date ??? Ankylosing spondylitis 02/21/2011 ??? Hepatitis ??? Hypertension ??? Mild asthma 02/24/2018 ??? Type 2 diabetes mellitus without complication, without long-term current use of insulin 02/24/2018 Fhx, Soc Hx, Allergies: Reviewed in eDH Physical Exam: BP 116/60 Comment: L arm Pulse 67 Temp 36.3 ??C (97.4 ??F) (Oral) Ht 167.6 cm (5' 6) Wt 83kg (183 lb) SpO2 100% BMI 29.54 kg/m?? General: AAOx3, NAD HEENT: Mucous membranes are moist, no [...] full claw and fist Hips: FROM, (-) fader (-radha) Knees: (-)effusions, non-tender ROM Ankles: FROM, non-tender, no swelling Feet: no MTP compression tenderness Spine, shoulders, elbows, wrists, fingers, hips, knees and ankles; no active swelling, tenderness or synovitis at any joint. No soft tissue nodules. Labs: Lab Results Component Value Date WBC 10.9 (H) 06/01/2019 HGB 14.3 06/01/2019 HCT 44.1 06/01/2019 PLATELET 238 06/01/2019 Labs from 08/31/2018: CBC w/ diff: WNL [...] with known or reported ADRs from medications. DA zero cotniues to be in emision No SE to meds Most recent labs wnl ?? PLAN: -Continue current meds: 1) Humira 40 mg [id number] 2) SZS 1000 mg BID -Check labs [...] regular C-scope screening given her UC dx. -F/U6 months. -Patient understood and agreed to the above. Gabe Fong MD Rheumatology Fellow No orders of the defined types were placed in this encounter. documented in this encounter Plan of Treatment Upcoming Encounters Date Type Department Care Team (Late st Contact Info) Description 04/19/2024 10:00 AM EDT Hospital Encounter Non-[place] [phone] Arrived 04/29/2024 9:50 [place] [phone] Luis Alfredo Velazquez MD [facility] [place] [address] 04/29/2024 9:50 [place] [phone] Luis Alfredo Velazquez MD [facility] [place] [address] 06/07/2024 2:30 PM EDT TH Visit (TeleHealth) [place] [phone] Dajuan Rachel MD [facility] DR GASTROENTER[place] [address] 07/02/2024 2:00 PM EDT Appointment Non-[place] [phone] Luis Alfredo Velazquez MD [facility] [place] [place] [address] 07/02/2024 4:40 PM EDT Office Visit Cardiology at [address] [phone] Luis Alfredo Velazquez MD [facility] [place] [address] documented as of this encounter Visit Diagnoses Diagnosis Inflammatory arthropathy Arthropathy, unspecified, site unspecified Ulcerative colitis without complications, unspecified location Medication monitoring encounter Encounter for therapeutic drug monitoring High risk medication use Encounter for long-term (current) use of other medications documented in this encounter Care Teams Side Stitching Machine Operator Relationship Specialty Start Date End Date Marcio Devlin DO [address] [place] [address] PCP - General Family Medicine 11/11/17 documented as of this encounter
--- OUTSIDE RECORDS SUMMARY | 2024-04-08 02:31 | XMS_ITS | Encounter Summary ---
[place] [address] Care Team Providers Care Websphere Architect Name Role Phone Marcio Devlin DO Primary Care Provider [phone] Reason for Visit * Reason Onset Date Comments Prior Authorization 10/09/2018 Shannon Encounter Details Date Type Department Care Team (Late st Contact Info) Description 10/09/2018 [place] [phone] Cory Garcia Prior Authorization (Shannon) Social History Tobacco Use Types Packs/Day Years [...] encounter Miscellaneous Notes * Telephone Encounter - Cory Garcia - 10/09/2018 9:14 AM EST [facility], Prior Authorization Approval APPROVAL DATES: 09/15/2018 to 09/14/2029 SPECIFIC INS REQUIREMENT: Must be filled through [facility] CASE/REFERENCE # [id number]/A (per ins rep) APPROVAL NOTIFICATION RECEIVED VIA: INS CALL documented in this encounter Plan of Treatment Upcoming Encounters Date Type Department Care Team (Late st Contact Info) Description 04/19/2024 10:00 AM EDT Hospital Encounter Non-Invasive Cardiology Lab [place] [phone] Arrived 04/29/2024 9:50 AM EDT Appointment MRI at [place] [address] Luis Alfredo Velazquez MD [facility] [place] [address] 04/29/2024 9:50 AM EDT Appointment MRI at [place] [address] Luis Alfredo Velazquez MD [facility] [place] [address] 06/07/2024 2:30 PM EDT TH Visit (TeleHealth) Gastroenterology at [place] [address] Dajuan Rachel MD [facility] [place] [address] 07/02/2024 2:00 PM EDT Appointment Non-Invasive Cardiology Lab [place] [phone] Luis Alfredo Velazquez MD [facility] [place] [address] 07/02/2024 4:40 PM EDT Office Visit Cardiology at [place] [phone] Luis Alfredo Velazquez MD [facility] [place] [address] documented as of this encounter Visit Diagnoses Not on filedocumented in this encounter Care Teams Websphere Architect Relationship Specialty Start Date End Date Marcio Devlin DO [address] [place] [address] PCP - General Family Medicine 11/11/17 documented as of this encounter
--- OUTSIDE RECORDS SUMMARY | 2024-04-08 02:31 | XMS_ITS | Encounter Summary ---
Author Organization [facility] [place] [address] Care Team Providers Care Veterinary Medicine Teacher Name Role Phone Marcio Devlin DO Primary Care Provider [phone] Encounter Details Date Type Department Care Team (Late st Contact Info) Description 11/09/2019 10:30 AM EST - 11/09/2019 11:15 AM EST [place] [phone] Froilan Sahni MD [facility] [place] [address] COLONOSCOPY, DIAGNOSTIC (WRVU 3.26) Social History Tobacco Use Types Packs/Day Years [...] Sign Reading Time Taken Comments Blood Pressure 137/64 11/09/2019 11:15 AM EST Pulse 87 11/09/2019 11:15 AM EST Temperature 36.5 ??C (97.7 ??F) 11/09/2019 9:42 AM ES T Respiratory Rate 18 11/09/2019 11:15 AM EST Oxygen Saturation 98% 11/09/2019 11:15 AM EST Inhaled Oxygen Concentration - - Weight 83 kg (183 lb) 11/09/2019 9:42 AM EST Height - - Body Mass Index 29.54 10/01/2019 1:38 PM EST documented in this encounter Discharge Instructions * Discharge Instructions* Birgit Berg RN - 11/09/2019 11:46 AM EST Colonoscopy: [...] occurs, please contact your Doctor. Please call [phone] before 8pm Mon-Fri with problems, questions or concerns. If you call after 8pm or on weekends, call the Hospital at [phone] and ask to speak to the Lap Machine Tender collection specialist and the terminal operator will contact that person for you. When should you call for help? Call [phone] anytime you think you may need emergency [...] After Visit Summary and more online at [email or web address] If you would like to [...] cost to you. Content Version: 12.2 ?? [id number] [employer]. Care instructions adapted under license by [facility]. If you have questions about a medical condition or this instruction, always ask your healthcare professional. [employer] disclaims any warranty or liability for your [...] mouth daily. SUMAtriptan (IMITREX) 20 mg/actuation [place], Non-Aerosol 1 spray as needed. 11/03/2017 metFORMIN [...] complication. Informed Consent signed by patient (or medical representative). documented in this encounter Plan of Treatment Upcoming Encounters Date Type Department Care Team (Late st Contact Info) Description 04/19/2024 10:00 AM EDT Hospital Encounter Non-Invasive Cardiology Lab [place] [address] Arrived 04/29/2024 9:50 AM EDT Appointment MRI at [place] [address] Luis Alfredo Velazquez MD [facility] [place] [address] 04/29/2024 9:50 AM EDT Appointment MRI at [place] [phone] Luis Alfredo Velazquez MD [facility] [place] [address] 06/07/2024 2:30 PM EDT TH Visit (TeleHealth) Gastroenterology at [place] [phone] Dajuan Rachel MD [facility] [place]STROENTER[place] [address] 07/02/2024 2:00 PM EDT Appointment Non-[place] [phone] Luis Alfredo Velazquez MD [facility] [place] [address] 07/02/2024 4:40 PM EDT Office Visit Cardiology at [address] [phone] Luis Alfredo Velazquez MD [facility] [place] [address] documented as of this encounter [...] Routine 11/09/2019 11:10 AM EST Colonoscopy, Biopsy ([id number]) 11/09/2019 10:48 AM EST hx poylps- 2 yr surveillance Colonoscopy, Diagnostic ([id number]) 11/09/2019 10:48 AM EST hx poylps- 2 yr surveillance COLONOSCOPY Routine 11/09/2019 9:34 AM EST documented in this encounter Results * Specimen to Pathology (11/09/2019 11:33 AM EST) AP Specimen 11/09/2019 11:3 3 AM EST 11/09/2019 11:33 AM EST Narrative [facility] - 11/09/2019 11:33 AM EST Specimen requisition ordered. ??Separate Pathology report to follow Froilan Sahni MD PATHOLOGY/CYTOLOG Y ORDERABLES [facility] [place] [place] [address] * Specimen to Pathology (11/09/2019 11:33 AM EST) AP Specimen 11/09/2019 11:3 3 AM EST 11/09/2019 11:33 AM EST Narrative [facility] - 11/09/2019 11:33 AM EST Specimen requisition ordered. ??Separate Pathology report to follow Froilan Sahni MD PATHOLOGY/[place] [address] * Specimen to Pathology (11/09/2019 11:33 AM EST) AP Specimen 11/09/2019 11:3 3 AM EST 11/09/2019 11:33 AM EST Narrative [facility] - 11/09/2019 11:33 AM EST Specimen requisition ordered. ??Separate Pathology report to follow Froilan Sahni MD PATHOLOGY/CYTOLOG Y ORDERABLES Performing Organization Address City/[facility]/[place] [address] * Specimen to Pathology (11/09/2019 11:33 AM EST) AP Specimen 11/09/2019 11:3 3 AM EST 11/09/2019 11:33 AM EST Narrative [facility] - 11/09/2019 11:33 AM EST Specimen requisition ordered. ??Separate Pathology report to follow Froilan Sahni MD PATHOLOGY/CYTOLOG Y ORDERABLES Performing Organization Address City/[facility]/[place] [address] * Specimen to Pathology (11/09/2019 11:33 AM EST) AP Specimen 11/09/2019 11:3 3 AM EST 11/09/2019 11:33 AM EST Narrative [facility] - 11/09/2019 11:33 AM EST Specimen requisition ordered. ??Separate Pathology report to follow Froilan Sahni MD PATHOLOGY/[place] [address] * Surgical Pathology Report (11/09/2019 11:10 AM EST) FINAL DIAGNOSIS (AP) [id number] ? Location: 4T; EA13; A The signing [...] dysplasia is seen. CR-PX Electronically signed by: ??Dg Brown MD Verified: ??11/10/2019 ?Pathologist Performed at: ??-[facility] Dept. of Pathology, [place], [place] CLINICAL INFORMATION Specimen Submitted: A - [...] labeled E1. ??elisa 11/10/2019 4:44 PM EST [facility] 11/09/2019 11:1 0 AM EST Froilan Sahni MD PATHOLOGY/CYTOLOG Y ORDERABLES [facility] [place] [place] [address] * COLONOSCOPY (11/09/2019 9:34 AM EST) COLONOSCOPY [facility] Endoscopy ___ Procedure Date: 11/09/2019 9:34 AM ? Patient Name: Kim Funes ? N: [id number] ? Date of : 1960 ? Age: 59 ? Order #: [id number] ? Instrument Name: [id number] ? ___ Procedure: ? Colonoscopy Indications: ? High risk colon cancer surveillance: ? Ulcerative pancolitis of 8 (or more) ? years duration Patient Profile: ? This is a 59 year old female. This ? patient has ulcerative pancolitis, is ? taking adalimumab and is experiencing ? mild symptoms. Providers: ? Froilan Sahni MD, Avani Hayes ? Sarah, FRANECSCA, Lawrence Natarajan Referring : ?Marcio Devlin, DO [...] Action Action Date Dose Rate Site fentaNYL 50 mcg/mL multi-dose injection ONCE PRN, Starting on 11/09/19 at 1053, Until 11/09/19 at 1508, Intra-Operative (Intra-Procedure), Routine Given 11/09/2019 11:10 AM EST 50 mcg Given 11/09/2019 11:04 AM EST 50 mcg Given 11/09/2019 10:57 AM EST 50 mcg lactated ringers infusion 100 mL/hr, Intravenous, CONTINUOUS, Starting on 11/09/19 at 1000, Until 11/09/19 at 1246, Endoscopy (Day of Procedure) New Bag 11/09/2019 9:57 AM EST 100 mL/hr 100 mL/hr midazolam (PF) (VERSED) multi-dose injection ONCE PRN, Starting on 11/09/19 at 1053, Until 11/09/19 at 1508, Intra-Operative (Intra-Procedure), Routine Given 11/09/2019 11:10 AM EST 1 mg Given 11/09/2019 11:04 AM EST 1 mg Given 11/09/2019 10:57 AM EST 1 mg documented in this encounter Active and Recently Administered Medications Times are shown in EST. Continuous Medication Order 11/07/2019 11/08/2019 11/09/2019 lactated ringers infusion (CANCELED) 100 mL/hr, Intravenous, CONTINUOUS, Starting on 11/09/19 at 1000, Until 11/09/19 at 1246, Endoscopy (Day of Procedure) 0957 [...] multi-dose injection (CANCELED) ONCE PRN, Starting on Tu11/09/19 at 1053, Until Fri11/09/19 at 1508, Intra-Operative (Intra-Procedure), Routine 1053 (Given - Provid er: Avani Smith RN)1057 (Given - Provider: Avani Smith RN)1104 (Given - Provider: Avani Smith RN)1110 (Given - Provider: Avani Smith RN) documented in this encounter Care Teams Veterinary Medicine Teacher Relationship Specialty Start Date End Date Marcio Devlin DO [address] [facility] [address] PCP - General Family Medicine 11/11/17 documented as of this encounter
--- OUTSIDE RECORDS SUMMARY | 2024-04-08 02:32 | XMS_ITS | Encounter Summary ---
Author Organization [facility] [place] [address] Care Team Providers Care X Ray Developing Machine Operator Name Role Phone Marcio Devlin DO Primary Care Provider [phone] Reason for Visit * Reason Onset Date Comments Medication Refill 11/20/2017 Encounter Details Date Type Department Care Team (Late st Contact Info) Description 11/20/2017 [place] [phone] Mark Good, RN Ankylosing spondylitis of cervical [...] AM EDT Hospital Encounter Non-Invasive [place] [phone] Arrived 04/29/2024 9:50 AM EDT Appointment MRI at [place] [phone] Luis Alfredo Velazquez MD [facility] [place] [address] 04/29/2024 9:50 AM EDT Appointment MRI at [address] Luis Alfredo Velazquez MD [facility] [place] [address] 06/07/2024 2:30 PM EDT TH Visit (TeleHealth) Gastroenterology at [place] [address] Dajuan Rachel MD [facility] [place] [address] 07/02/2024 2:00 PM EDT Appointment Non-Invasive Cardiology Lab [place] [address] Luis Alfredo Velazquez MD [facility] [place] [address] 07/02/2024 4:40 PM EDT Office Visit Cardiology at [place] [address] Luis Alfredo Velazquez MD [facility] [place] [address] documented as of this encounter Visit Diagnoses Diagnosis Ankylosing spondylitis of cervical region Ankylosing spondylitis documented in this encounter Care Teams X Ray Developing Machine Operator Relationship Specialty Start Date End Date Marcio Devlin DO [address] [place] [address] PCP - General Family Medicine 11/11/17 documented as of this encounter
--- OUTSIDE RECORDS SUMMARY | 2024-04-08 02:32 | XMS_ITS | Encounter Summary ---
Author Organization [facility] [place] [address] Care Team Providers Care Forepart Rounder Name Role Phone Marcio Carranza MD Primary Care Provider [phone] Reason for Visit * Reason Onset Date Comments Medication Refill 05/30/2016 Encounter Details Date Type Department Care Team (Late st Contact Info) Description 05/31/2016 [place] [phone] Sindi Guzmán RN Ankylosing spondylitis of cervical region Social [...] encounter Miscellaneous Notes * Telephone Encounter - Sindi Pastrana RN - 05/31/2016 12:23 PM EDTFrom: Kim Funes To: Ayden Navarro MD Sent: 05/30/2016 8:39 PM EDT Subject: Medication Renewal Request Original authorizing provider: MD Kim ADAMSe would like a refill of the following medications: Adalimumab (HUMIRA PEN) 40 mg/0.8 mL Pen Injector Kit [AYDEN NAVARRO MD] Preferred pharmacy: [facility] [address] Comment: documented in this encounter Plan of Treatment Upcoming Encounters Date Type Department Care Team (Late st Contact Info) Description 04/19/2024 10:00 AM EDT Hospital Encounter Non-[place] [phone] Arrived 04/29/2024 9:50 AM EDT [place] [address] Luis Alfredo Velazquez MD [facility] [place] [address] 04/29/2024 9:50 AM [place] [phone] Luis Alfredo Velazquez MD [facility] [place] [address] 06/07/2024 2:30 PM EDT TH Visit (TeleHealth) Gastroenterology at [place] [phone] Dajuan Rachel MD [facility] [place] [address] 07/02/2024 2:00 PM EDT Appointment Non[place] [phone] Luis Alfredo Velazquez MD [facility] [place] [address] 07/02/2024 4:40 PM EDT Office Visit Cardiology at [address] [phone] Luis Alfredo Velazquez MD [facility] [place] [address] documented as of this encounter Visit Diagnoses Diagnosis Ankylosing spondylitis of cervical region Ankylosing spondylitis documented in this encounter Care Teams Forepart Rounder Relationship Specialty Start Date End Date Marcio Carranza MD [address] [place] [address] PCP - General 08/07/10 11/10/17 documented as of this encounter
--- OUTSIDE RECORDS SUMMARY | 2024-04-08 02:32 | XMS_ITS | Encounter Summary ---
Author Organization [facility] [place] [address] Care Team Providers Care Court Assistant Name Role Phone Marcio Carranza MD Primary Care Provider [phone] Reason for Visit * Reason Comments Medication Refill Encounter Details Date Type Department Care Team (Late st Contact Info) Description 12/11/2016 Refill [place] [phone] Albert Saenz MD [facility] [place] [address] Ankylosing spondylitis of cervical region Social History [...] AM EDT Hospital Encounter Non-Invasive [place] [address] Arrived 04/29/2024 9:50 AM EDT Appointment MRI at [place] [address] Luis Alfredo Velazquez MD [facility] [place] [address] 04/29/2024 9:50 AM EDT Appointment MRI at [address] Luis Alfredo Velazquez MD [facility] [place] [address] 06/07/2024 2:30 PM EDT TH Visit (TeleHealth) Gastroenterology at [place] [address] Dajuan Rachel MD [facility] [place] [address] 07/02/2024 2:00 PM EDT Appointment Non-Invasive Cardiology Lab [place] [address] Luis Alfredo Velazquez MD [facility] [place] [address] 07/02/2024 4:40 PM EDT Office Visit Cardiology at [place] [phone] Luis Alfredo Velazquez MD [facility] [place] [address] documented as of this encounter Visit Diagnoses Diagnosis Ankylosing spondylitis of cervical region Ankylosing spondylitis documented in this encounter Care Teams Court Assistant Relationship Specialty Start Date End Date Marcio Carranza MD [address] [place] [address] PCP - General 08/07/10 11/10/17 documented as of this encounter
--- OUTSIDE RECORDS SUMMARY | 2024-04-08 02:32 | XMS_ITS | Encounter Summary ---
[facility] [place] [address] Care Team Providers Care Plater Barrel Name Role Phone Marcio Carranza MD Primary Care Provider [phone] Encounter Details Date Type Department Care Team (Late st Contact Info) Description 03/04/2017 9:00 AM EDT - 03/04/2017 9:45 AM EDT [place] [phone] Raúl Austin MD [facility] [place] [address] COLONOSCOPY FLEXIBLE, WITH BX (WRVU 3.56) Social [...] Sign Reading Time Taken Comments Blood Pressure 165/78 03/04/2017 9:45 AM EDT Pulse 68 03/04/2017 9:34 AM EDT Temperature - - Respiratory Rate 16 03/04/2017 9:34 AM EDT Oxygen Saturation 95% 03/04/2017 9:45 AM EDT Inhaled Oxygen Concentration - - Weight 93.9 kg (207 lb) 03/04/2017 7:55 AM EDT Height 167.6 cm (5' 6) 03/04/2017 7:55 AM EDT Body Mass Index 33.41 03/04/2017 7:55 AM EDT documented in this encounter Discharge Instructions * Discharge Instructions* Amaury Stanton RN - 03/04/2017 9:40 AM EDT Colonoscopy and polyp removal What to expect after the procedure You may feel a little more gassy or bloated than usual, this is normal. You should expect the return of normal bowel function in the next 2 to 3 days. Because some polyps were removed, you may see a little blood with the next few bowel movements, this should be a small amount ( less than a few tablespoons) and will resolve on it's own. ACTIVITY Because of the sedation that you received Your judgement and reaction time are effected ?? Go home and rest for the remainder for the day. You may resume your normal activities tomorrow ?? Change from one position to the next slowly because you may lose your balance unexpectedly. ?? Be careful on stairs, as you may be unsteady. ?? Avoid strenuous activity for 48 to 72 hrs FOR THE NEXT 24 HRS ?? DO NOT DRIVE OR OPERATE MACHINERY ?? DO NOT DRINK ALCOHOLIC BEVERAGES ?? DO NOT SIGN LEGAL DOCUMENTS ?? If you are a smoker: DO NOT SMOKE WHILE YOU ARE ALONE Diet ?? Start by eating small portions of foods that ordinarily will not upset your stomach, avoid gas producing foods for the next few days. ?? Be gentle with what you choose to start with ?? Drink plenty of fluids ( unless your doctor has told you not to). ?? A soft diet may be helpful for the next 3 days as this may help to keep the stools soft Medicines Avoid medicines that influence the way your blood clots for the next week. These would include anti-inflammatory medicine, such as ibuprofen( Advil, Motrin) and naproxen ( Aleve). If you need something for discomfort, Tylenol (Acetaminophen) is safe if used as directed. Your Doctor will tell you when to restart your prescribed blood thinners The IV site-- slight tenderness, or redness is normal, you can use warm compresses if you get concerned. If the tenderness +/or redness increases or foul drainage and a red streak occurs, please contact your PCP immediately. When should you call for help? Call 911 anytime you think you may need emergency care. For example If you pass out (loss of consciousness) If you pass maroon or bloody stools If you have severe belly pain Call your healthcare provider or seek immediate medical care if: Your stools are black or tar like Your stools have streaks of blood that is more pronounced with each BM You have belly pain, or your belly is swollen and firm You vomit You have a fever You are very dizzy Watch closely for changes in your health, and be sure to contact your doctor if you have any problems. Your Doctor will let you know when you will need your next colonoscopy. The results of your test and your risk for colorectal cancer will help your doctor decide how often you need to be checked. Friday-Friday Same Day Endo [phone] 7a-8p Otherwise contact [phone] and ask to speak to the production statistical clerk computer installation engineer Follow up care is a hernandez part of your treatment and safety. Be sure to make and go to all appointments, and call your doctor if you are having problems. Discharge instructions reviewed with patient who expresses understanding * Patient Instructions* Raúl Austin MD - 03/04/2017 9:36 AM EDT Please see Recommendations in the Provation procedure report which is documented in the procedural note in E-DH. documented in this encounter Medications at Time of Discharge Medication Sig Dispensed Refills Start Date End Date metFORMIN (GLUCOPHAGE) 500 mg Tablet Take 500 [...] by mouth 2 times daily. 12/24/2012 10/07/2023 fish oil-omega-3 fatty acids 1,000 mg Capsule Take 1 g by mouth daily. 02/23/2019 Adalimumab (HUMIRA PEN) 40 mg/0.8 mL Pen Injector KitIndications:Ankyl osing spondylitis of cervical region Inject 0.8 mLs subcutaneously every 14 days. 2 kit 10 01/02/2017 11/11/2017 ASPIRIN ORAL Take 365 mg by mouth nightly. 02/24/2018 hydrochlorothiazide (HYDRODIURIL) 12.5 mg Tablet Take 12.5 [...] times daily. 270 tablet 3 09/19/2011 04/06/2020 Ferrous Fumarate 63 mg (20 mg Iron) Tab Take 65 mg by mouth daily. 02/21/2011 05/06/2017 fluticasone (FLONASE) 50 mcg/Actuation nasal spray 2 sprays by Each Nare route daily. 02/07/2021 fluticasone (FLOVENT) 110 mcg/Actuation inhaler Inhale 1-2 puffs into the lungs daily. 02/21/2011 10/07/2023 sulfaSALAzine (AZULFIDINE) 500 mg tablet Take 1,000 mg by mouth 2 times daily. 02/21/2011 07/23/2021 vitamin E 400 unit capsule 800UNIT, PO, Once daily 10/15/2010 02/07/2021 documented as of this encounter H&P Notes * Raúl Austin MD - 03/04/2017 8:44 AM EDT Gastroenterology and Hepatology Pre-Procedure History and Physical Exam Procedure: Colonoscopy: Indication: UC > 10 years pancolitis for surveillance. On sulfasalazine and Humira without symptoms. Patient Active Problem List Diagnosis Code ??? Ulcerative colitis K51.90 ??? DIFFICULT AIRWAY T88.4XXA ??? MÉNDEZ (nonalcoholic steatohepatitis) K75.81 ??? Lipid disorder E78.9 ??? Ankylosing spondylitis M45.9 ??? Hypertension I10 ??? GERD (gastroesophageal reflux disease) K21.9 EXAM: HEENT: Airway examined, oropharynx clear Mallampati [...] patient. Consent signed. documented in this encounter Miscellaneous Notes * Op Note - Raúl Austin MD - 03/04/2017 9:36 AM EDT [facility] Operative Note Patient Name: Kim Funes : [id number] MR#: [id number] Case Date: 03/04/2017 Surgeon: Surgeon(s) and Role: * Raúl Austin MD - Primary Preoperative diagnosis: 2 yr surv from Postoperative diagnosis: * No post-op diagnosis entered * Procedure(s) (LRB): COLONOSCOPY FLEXIBLE, WITH BX (WRVU 3.66) (N/A) COLONOSCOPY, POLYPECTOMY, REMOVAL LESION BY SNARE (WRVU 4.67) (N/A) Full procedure note is documented under the Procedure section of eDH. documented in this encounter Plan of Treatment Upcoming Encounters Date Type Department Care Team (Late st Contact Info) Description 04/19/2024 10:00 AM EDT Hospital Encounter Non-Invasive Cardiology Lab [place] [phone] Arrived 04/29/2024 9:50 AM EDT Appointment MRI at [address] Luis Alfredo Velazquez MD [facility] [place] [address] 04/29/2024 9:50 AM EDT Appointment MRI at [place] [phone] Luis Alfredo Velazquez MD [facility] [place] [address] 06/07/2024 2:30 PM EDT TH Visit (TeleHealth) Gastroenterology at [address] Dajuan Rachel MD [facility] [place] [address] 07/02/2024 2:00 PM EDT Appointment Non-Invasive Cardiology Lab [place] [phone] Luis Alfredo Velazquez MD [facility] [place] [address] 07/02/2024 4:40 PM EDT Office Visit Cardiology at [place] [phone] Luis Alfredo Velazquez MD [facility] [place] [address] [place] [address] documented as of this encounter Procedures Procedure Name Priority Date/Time Associated Diagnosis Comments SURGICAL PATHOLOGY REPORT Routine 03/04/2017 11:01 AM EDT SPECIMEN TO PATHOLOGY Routine 03/04/2017 9:39 AM EDT SPECIMEN TO PATHOLOGY Routine 03/04/2017 9:39 AM EDT SPECIMEN TO PATHOLOGY Routine 03/04/2017 9:39 AM EDT SPECIMEN TO PATHOLOGY Routine 03/04/2017 9:39 AM EDT SPECIMEN TO PATHOLOGY Routine 03/04/2017 9:39 AM EDT SPECIMEN TO PATHOLOGY Routine 03/04/2017 9:39 AM EDT COLONOSCOPY, POLYPECTOMY, REMOVAL LESION BY SNARE (WRVU 4.57) 03/04/2017 8:46 AM EDT 2 yr surv from COLONOSCOPY FLEXIBLE, WITH BX (WRVU 3.56) 03/04/2017 8:46 AM EDT 2 yr surv from COLONOSCOPY Routine 03/04/2017 7:44 AM EDT documented in this encounter Results * Surgical Pathology Report (03/04/2017 11:01 AM EDT) FINAL DIAGNOSIS (AP) [id number] ?Location: 4T; EA09; A The signing pathologist has (i) examined the relevant preparation(s) for the specimen(s) and (ii) rendered or confirmed the diagnosis(es). . ?Surgical Pathology DIAGNOSIS A - Right colon, biopsy: - Patchy mildly active chronic colitis, negative for dysplasia. B - Edge of rectal polyp resection site, biopsy: - Colonic mucosa with chronic active inflammation and hyperplastic features, negative for dysplasia. C - Left colon, biopsy: - Colonic mucosa with mild architectural disarray, negative for dysplasia. D - Rectum, polypectomy: - Inflammatory/mark nile polyp. E - Rectum, biopsy: - Colonic mucosa with Paneth cell metaplasia and hyperplastic features, negative for dysplasia. F - Rectal mucosa, biopsy: - Fragments of hyperplastic polyp. CR-PX Electronically signed by: ??Iker Jansen MD Verified: ??03/07/2017 ?Pathologist CLINICAL INFORMATION Specimen Submitted: A - Random bx right colon B - Bx edge of rectal polyp resection site C - Random bx left colon D - Rectal polyp E - Random bx rectum F - Focused bx slightly nodular rectal mucosa Clinical History: Long-standing UC-inactive Clinical Diagnosis: Rectal and nodular adjacent rectal mucosa-rule out dysplasia. SPECIMEN PROCESSING A - Labeled/Fixative: Random BX right colon, formalin. Quantity/Size: Multiple, ranging from 0.2-0.5 cm. Tissue Description: ??Soft, pink tissues . Sections/Processi ng: (T2) B - Labeled/Fixative: BX edge of rectal polyp resection site, formalin. Quantity/Size: Two, averaging 0.3 cm. Tissue Description: ??Soft, pink tissues . Sections/Processi ng: (T1) C - Labeled/Fixative: Random BX left colon, formalin. Quantity/Size: Multiple, ranging from 0.2-0.4 cm. . SPECIMEN PROCESSING Tissue Description: ??Soft, pink tissues . Sections/Processi ng: (T3) D - Labeled/Fixative: Rectal polyp, formalin. Quantity/Size: Single, 1.3 x 0.6 x 0.6 cm. Tissue Description: Soft, red polyp. Sections/Processi ng: Inked and serially sectioned. (T1) E - Labeled/Fixative: Random BX rectum, formalin. Quantity/Size: Three averaging 0.3 cm. Tissue Description: ??Soft, pink tissues . Sections/Processi ng: (T1) F - Labeled/Fixative: Focused BX of slightly nodular rectal mucosa, formalin. Quantity/Size: Three, averaging 0.4 cm. Tissue Description: ??Soft, pink tissues . Sections/Processi ng: (T1) ??sns 03/07/2017 4:22 PM EDT [facility] 03/04/2017 11:0 1 AM EDT Raúl Austin MD PATHOLOGY/CYTOLOGY O [facility] Performing Organization Address City/[facility]/[place] [address] * Specimen to Pathology (surgical or derm) (03/04/2017 9:39 AM EDT) AP Specimen 03/04/2017 9:39 AM EDT 03/04/2017 9:39 AM EDT Narrative [facility] - 03/04/2017 9:39 AM EDT Specimen requisition ordered. ??Separate Pathology report to follow Raúl Austin MD PATHOLOGY/CYTOLOGY O [facility] Performing Organization Address [facility]/[place] [address] * Specimen to Pathology (surgical or derm) (03/04/2017 9:39 AM EDT) AP Specimen 03/04/2017 9:39 AM EDT 03/04/2017 9:39 AM EDT Narrative [facility] - 03/04/2017 9:39 AM EDT Specimen requisition ordered. ??Separate Pathology report to follow Raúl Austin MD PATHOLOGY/CYTOLOGY O [facility] Performing Organization Address [facility]/[place] [address] * Specimen to Pathology (surgical or derm) (03/04/2017 9:39 AM EDT) AP Specimen 03/04/2017 9:39 AM EDT 03/04/2017 9:39 AM EDT Narrative [facility] - 03/04/2017 9:39 AM EDT Specimen requisition ordered. ??Separate Pathology report to follow Raúl Austin MD PATHOLOGY/CYTOLOGY O [facility] Performing Organization Address City/[facility]/ZIP Co de Phone Number [place] [address] * Specimen to Pathology (surgical or derm) (03/04/2017 9:39 AM EDT) AP Specimen 03/04/2017 9:39 AM EDT 03/04/2017 9:39 AM EDT Narrative [facility] - 03/04/2017 9:39 AM EDT Specimen requisition ordered. ??Separate Pathology report to follow Raúl Austin MD PATHOLOGY/[place] [address] * Specimen to Pathology (surgical or derm) (03/04/2017 9:39 AM EDT) AP Specimen 03/04/2017 9:39 AM EDT 03/04/2017 9:39 AM EDT Narrative [facility] - 03/04/2017 9:39 AM EDT Specimen requisition ordered. ??Separate Pathology report to follow Raúl Austin MD PATHOLOGY/CYTOLOGY O [facility] Performing Organization Address [facility]/[place] [address] * Specimen to Pathology (surgical or derm) (03/04/2017 9:39 AM EDT) AP Specimen 03/04/2017 9:39 AM EDT 03/04/2017 9:39 AM EDT Narrative [facility] - 03/04/2017 9:39 AM EDT Specimen requisition ordered. ??Separate Pathology report to follow Raúl Austin MD PATHOLOGY/CYTOLOGY O [facility] Performing Organization Address [facility]/[place] [address] * COLONOSCOPY (03/04/2017 7:44 AM EDT) COLONOSCOPY [facility] Endoscopy Procedure Date: 03/04/2017 7:44 AM ? Patient Name: Kim Funes ? Date of : 1960 ? Age: 56 ? Order #: [id number] ? Instrument Name: [id number] ? Procedure: ? Colonoscopy Indications: ? High risk colon cancer surveillance: ? Ulcerative pancolitis Providers: ? Raúl Austin MD, Genie Jeronimo, ? RN, Kim Roberto MD: ?Marcio Carranza MD Medicines: ? Midazolam 3.5 mg IV, Fentanyl 150 ? micrograms IV Complications: ? No immediate complications. Procedure: ? Pre-Anesthesia Assessment: ? - Prior to the procedure, a History ? and Physical was performed, and ? patient medications, allergies and ? sensitivities were reviewed. The ? patient's tolerance of previous ? anesthesia was reviewed. ? - The risks and benefits of the ? procedure and the sedation options ? and risks were discussed with the ? patient. All questions were answered ? and informed consent was obtained. ? - ASA Grade Assessment: II - A ? patient with mild systemic disease. ? The procedure, indications, benefits, ? risks [...] and under direct visualization, ? advanced to the terminal ileum. ? Careful inspection was made as the ? colonoscope was withdrawn. The ? patient tolerated the procedure well. ? The quality of the bowel preparation ? was excellent. The quality of the ? bowel preparation was evaluated using ? the BBPS ([place] Bowel Preparation ? Scale) with scores of: Right Colon = ? 3, Transverse Colon = 3 and Left ? Colon = 3 (entire mucosa seen well ? with no residual staining, small ? fragments of stool or opaque liquid). ? The total BBPS score equals 9. The ? total duration of the procedure was ? 30 minutes. Scope withdrawal time was ? 20 minutes. ? Findings: ? The perianal and digital rectal examinations were ? normal. ? The terminal ileum appeared normal. ? Inactive colitis-random surveillance biopsies 2 x q10 ? cm from right colon, left colon and rectum. ? A 15 mm polyp was found in the rectum. The polyp was ? sessile. The polyp was removed with a hot snare. ? Resection and retrieval were complete. Biopsies were ? taken with a cold forceps for histology from the ? resection site edge. There was also subtle nodular ? mucosa in distal rectum that was biopsied. ? Unable to retroflex in rectum due to narrowed lumen. ? Moderate Sedation: ? I was present during the intraservice time as ? documented by the sedation RN. Impression: ?- The examined portion of the ileum ? was normal. ? - Inactive colitis-surveilla nce ? biopsies taken. ? - One 15 mm polyp in the rectum, ? removed with a hot snare. Resected ? and retrieved. Biopsied resection ? edge as well as adjacent nodular ? mucosa. Recommendation: ?- Await pathology results. ? - Repeat colonoscopy in 2 years for ? surveillance based on pathology ? results. ? Attending Participation: ? I was present and participated during the entire ? procedure, including non-hernandez portions. ? __ Raúl Austin MD 03/04/2017 9:52:18 AM This report has been signed electronically. Number of Addenda: 0 Note Initiated On: 03/04/2017 7:44 AM PROVATION 03/04/2017 7:44 AM EDT Marcio Carranza MD GENERAL SURGICAL ORDERABLES PROVATION documented in this encounter Visit Diagnoses Not on filedocumented in this encounter Administered Medications Inactive Administered Medications - up to 3 most recent administrations Medication Order MAR Action Action Date Dose Rate Site fentaNYL 50 mcg/mL multi-dose injection ONCE PRN, Starting on Fri03/04/17 at 0848, Until Fri03/04/17 at 1301, Intra-Operative (Intra-Procedure), Routine Given 03/04/2017 9:01 AM EDT 25 mcg Given 03/04/2017 8:58 AM EDT 25 mcg Given 03/04/2017 8:51 AM EDT 50 mcg lactated Ringers infusion 100 mL/hr, Intravenous, CONTINUOUS, Starting on Fri03/04/17 at 0815, Until Fri03/04/17 at 1004, Endoscopy (Day of Procedure) New Bag 03/04/2017 8:06 AM EDT 100 mL/hr 100 mL/hr midazolam (PF) (VERSED) 1 mg/mL multi-dose injection ONCE PRN, Starting on Fri03/04/17 at 0848, Until Fri03/04/17 at 1301, Intra-Operative (Intra-Procedure), Routine Given 03/04/2017 9:01 AM EDT 0.5 mg Given 03/04/2017 8:58 AM EDT 0.5 mg Given 03/04/2017 8:55 AM EDT 0.5 mg documented in this encounter Active and Recently Administered Medications Times are shown in EDT. Continuous Medication Order 03/02/2017 03/03/2017 03/04/2017 lactated Ringers infusion (CANCELED) 100 mL/hr, Intravenous, CONTINUOUS, Starting on Fri03/04/17 at 0815, Until Fri03/04/17 at 1004, Endoscopy (Day of Procedure) 0806 (New Bag - Prov ider: Nayana Downey RN) PRN Medication Order 03/02/2017 03/03/2017 03/04/2017 fentaNYL 50 mcg/mL multi-dose injection (CANCELED) ONCE PRN, Starting on Fri03/04/17 at 0848, Until Fri03/04/17 at 1301, Intra-Operative (Intra-Procedure), Routine 0848 (Given - Provid er: Genie Jeronimo RN)0851 (Given - Provider: Genie Jeronimo RN)0858 (Given - Provider: Genie Jeronimo RN)0901 (Given - Provider: Genie Jeronimo RN) midazolam (PF) (VERSED) 1 mg/mL multi-dose injection (CANCELED) ONCE PRN, Starting on Fri03/04/17 at 0848, Until Fri03/04/17 at 1301, Intra-Operative (Intra-Procedure), Routine 0848 (Given - Provid er: Genie Jeronimo RN)0851 (Given - Provider: Genie Jeronimo RN)0855 (Given - Provider: Genie Jeronimo RN)0858 (Given - Provider: Genie Jeronimo RN)0901 (Given - Provider: Genie Jeronimo RN) documented in this encounter Care Teams Plater Barrel Relationship Specialty Start Date End Date Marcio Carranza MD [address] [place] [address] PCP - General 08/07/10 11/10/17 documented as of this encounter
--- OUTSIDE RECORDS SUMMARY | 2024-04-08 02:32 | XMS_ITS | Encounter Summary ---
Author Organization [facility] Address [facility] [place] [address] Care Team Providers Care Software Applications Engineer Name Role Phone Marcio Devlin DO Primary Care Provider [phone] Reason for Visit * Auth/Cert Specialty Diagnoses [...] Expiration Date Visits Re quested Visits Authorized [id number] 1 1 Encounter Details Date Type Department Care Team (Late st Contact Info) Description 03/10/2018 7:30 AM EDT - 03/10/2018 11:18 AM EDT Surgery Main Operating Room [facility] [place] [address] Liang Fong MD [facility] [place] [address] HYSTERECTOMY, VAGINAL, REMOVAL TUBE(S) & OR OVARY(S) (WRU 15.29) Social History Tobacco Use Types Packs/Day Years [...] Sign Reading Time Taken Comments Blood Pressure 130/65 03/10/2018 11:16 AM EDT Pulse 82 03/10/2018 11:16 AM EDT Temperature 36.9 ??C (98.4 ??F) 03/10/2018 11:16 AM E DT Respiratory Rate 10 03/10/2018 11:16 AM EDT Oxygen Saturation 100% 03/10/2018 11:16 AM EDT Inhaled Oxygen Concentration - - [...] Kim Funes Patient Age: 57 y.o. Language: East Timorese Race: White Ethnicity: Not nor Admit date: 03/10/2018 Discharge date and time: 03/11/2018 Attending Physician: Liang Fong MD Discharge Physician: Liang Fong MD Follow-up Recommendations for Providers: Follow up appointment: 04/21/18 at 1:[address] Fong Inpatient Provider Contact Information: Female Pelvic Medicine and Reconstructive Surgery Department of Obstetrics and Gynecology [phone] Discharge Diagnoses (Hospital Problems) and Secondary Diagnoses [...] sling History of Presentation: Kim presented on 02/20/18 for evaluation and assessment of RADHA and uterine prolapse of 1 year's duration. She used to only leak with exertion but now with any activity. She was seen by Dr. Hancock who diagnosed both plus a urethral caruncle and discussed a surgical repair. However, there was a concern her airway would be difficult secondary to snk spond so was referred [facility] [place] to evaluate. Hospital Course: Kim [...] 1000 mg Refills: 0 SUMAtriptan 20 mg/actuation [place] Commonly known as: IMITREX 1 spray as [...] appointment: 04/21/18 at 1:[address] oFng Special Physician Instructions: If you are still needing a catheter to drain your bladder, please follow the instructions given to you separately for when to use the catheter and how to care for it. In addition, please call to check in with the urogynecology office nurse at [phone] to review how your bladder is working and when the catheter use can be discontinued. For problems or concerns related to this hospitalization call: [phone] weekdays, or [phone] weekends or nights. Call your doctor if [...] Liang Fong MD Obst[facility]s [facility] [place] [phone] 08/31/2018 11:00 AM Nico Campbell DO Rheumat[facility] [phone] Discharge References/Attachments None Provider Contact Information: Marcio Devlin DO [phone] documented in this encounter Discharge Instructions * [...] in with the urogynecology office nurse at [phone] to review how your bladder is working and when the catheter use can be discontinued. For problems or concerns related to this hospitalization call: [phone] weekdays, or [phone] weekends or nights. Call your doctor if [...] by mouth daily. SUMAtriptan (IMITREX) 20 mg/actuation [place], Non-Aerosol 1 spray as needed. 11/03/2017 metFORMIN [...] y.o. female who is POD#1 from a TV, USLS, anterior repair and retropubic MUS. Patient [...] output FEK: D/c IVF. Tolerating PO intake. GRANULATOR MACHINE OPERATOR: Final pathology report pending. -Follow up in [...] history. She is Post-operative day #1 from [facility], [place]. Retropubic MUS, cysto. I have [...] not included. Gynecology Post-Operative Check Note ID: Kmi Funes is a 57 y.o. woman whose [...] intake. -Wean IVF when tolerating full diet GRANULATOR MACHINE OPERATOR: Final pathology report pending. -Follow up in clinic 4-6 weeks postoperatively Endocrine: DM II - sensitive SSI ordered ID: Afebrile, received prophylactic antibiotics preop, no evidence of infection -continue to monitor vital signs. Prophylaxis: SCDs while in bed, encourage ambulation, incentive spirometry Dispo: Anticipate discharge tomorrow Code Status: Full Code Jason Stapleton MD PGY-2 03/10/2018 Gynecology Service Pager: [phone] ([phone] [phone]), otherwise page [phone] * Aleta Croft, RN - 03/10/2018 11:25 AM EDT Pt arrived from OR to PACU. Placed on monitor and alarms adjusted. Received report.1225: infor visit. documented in this encounter H&P Notes * Victorina Becker - 03/10/2018 6:30 AM EDT Inpatient ANESTHESIA ATTENDING - Admission Interval Note I have reviewed [...] Fong MD - 03/10/2018 11:21 AM EDT [facility] Operative Note Patient Name: Kim Funes : [id number] MR#: [id number] Case Date: 03/10/2018 Surgeon: Surgeon(s) and Role: [...] the cervical portio with 1% lidocaine with [id number] Epinephrine solution. A weighted speculum had been [...] thickness of the anterior and posterior vaginal baez at the cuff. The packing was removed, and all sutures were tied across the cuff with good elevation of the apex of the vagina. The vaginal cuff was inspected. There was a midline area that still had a small defect, and this was reapproximated with a [id number] 0Vicryl suture in interrupted fashion. After the [...] Operative Note Patient Name: Kim Funes : [id number] MR#: [id number] Case Date: 03/10/2018 Surgeon: Surgeon(s) and Role: [...] AM EDT Hospital Encounter Non-Invasive [place] [address] Arrived 04/29/2024 9:50 AM EDT [place] [address] Luis Alfredo Velazquez MD [facility] [place] [address] 04/29/2024 9:50 AM [place] [phone] Luis Alfredo Velazquez MD [facility] [place] [address] 06/07/2024 2:30 PM EDT TH Visit (TeleHealth) Gastroenterology at [address] Dajuan Rcahel MD [facility] GASTROENTER[place] [address] 07/02/2024 2:00 PM EDT Appointment Non-Invasive [place] [phone] Luis Alfredo Velazquez MD [facility] [place] [address] 07/02/2024 4:40 PM EDT Office Visit Cardiology at [address] [place] [address] Luis Alfredo Velazquez MD [facility] [place] [address] documented as of this encounter Procedures Procedure Name Priority Date/Time Associated Diagnosis Comments BRINE TANK SEPARATOR OPERATOR SCAN 03/12/2018 12:00 AM EDT POCT [...] in this encounter Results * SCAN DOC: BRINE TANK SEPARATOR OPERATOR (03/12/2018 12:00 AM EDT) Anatomical Region Laterality Modality Other Narrative 03/12/2018 12:00 AM EDT Ordered by an unspecified provider. Scanning Provider MEDIA MGR SCAN EXT O RDR/RSLT * POCT Glucose (03/11/2018 7:16 AM EDT) POC Glucose 121 65 - 199 mg/dL [facility] Comment: Supplemental ranges: <140 mg/dL before meals <180 mg/dL all other times of the day Blood specimen (specimen) 03/11/2018 7:16 AM EDT 03/11/2018 7:16 AM EDT Liang Fong MD POINT OF CARE TEST O IRMA Performing Organization Address [facility] Co de Phone Number [facility] [place] [address] * POCT Glucose (03/10/2018 9:20 PM EDT) POC Glucose 107 65 - 199 mg/dL [facility] Comment: Supplemental ranges: <140 mg/dL before meals <180 mg/dL all other times of the day Blood specimen (specimen) 03/10/2018 9:20 PM EDT 03/10/2018 9:20 PM EDT Liang Fong MD POINT OF CARE TEST O IRMA Performing Organization Address [facility] Co de Phone Number [facility] [place] [address] * POCT Glucose (03/10/2018 4:39 PM EDT) POC Glucose 110 65 - 199 mg/dL [facility] Comment: Supplemental ranges: <140 mg/dL before meals <180 mg/dL all other times of the day Blood specimen (specimen) 03/10/2018 4:39 PM EDT 03/10/2018 4:39 PM EDT Liang Fong MD POINT OF CARE TEST O CHYNAERADARLEEN Performing Organization Address City/State/[facility] Co de Phone Number [facility] [place] [address] * POCT Glucose (03/10/2018 11:23 AM EDT) POC Glucose 137 65 - 199 mg/dL [facility] Comment: Supplemental ranges: <140 mg/dL before meals <180 mg/dL all other times of the day Blood specimen (specimen) 03/10/2018 11:23 AM EDT 03/10/2018 11:23 AM EDT Liang Fong MD POINT OF CARE TEST O IRMA Performing Organization Address [facility] Co de Phone Number [facility] [place] [address] * Specimen to Pathology (03/10/2018 9:22 AM EDT) AP Specimen 03/10/2018 9:22 AM EDT 03/10/2018 11:[address] [facility] - 03/10/2018 11:03 AM EDT Specimen requisition ordered. ??Separate Pathology report to follow Resulting Agency Comment Spec In Lab Liang Fong MD PATHOLOGY/CYTOLOGY O IRMA Performing Organization Address [facility] de Phone Number [facility] [place] [address] * Surgical Pathology Report (03/10/2018 9:00 AM EDT) FINAL DIAGNOSIS (AP) [id number] ? Location: U; 14; A The signing pathologist has (i) [...] Marc Hayes Verified: ??03/16/2018 ?Pathologist Performed at: ??-[facility] Dept. of [place]ology, [place], [place] CLINICAL INFORMATION Specimen Submitted: A - [...] nodules. (R5) nsm 03/16/2018 2:[address] [facility] 03/10/2018 9:00 AM EDT Liang Fong MD PATHOLOGY/CYTOLOGY O RDERADARLEEN [facility] [place] [address] * POCT Glucose (03/10/2018 6:28 AM EDT) POC Glucose 107 65 - 199 mg/dL [facility] Comment: Supplemental ranges: <140 mg/dL before meals <180 mg/dL all other times of the day Blood specimen (specimen) 03/10/2018 6:28 AM EDT 03/10/2018 6:28 AM EDT Liang Fong MD POINT OF CARE TEST O RDERABLES [facility] [place] [place] [address] documented in this encounter Visit Diagnoses Not on filedocumented in this encounter Admitting Diagnoses Diagnosis Prolapse [...] mL/hr New Bag 03/10/2018 7:42 AM EDT lidocaine-EPINEPHrine 1 %-1:200,000 injection ONCE PRN, Starting on Fri03/10/18 at 1025, Until Fri03/11/18 at 1054, Intra-Operative (Intra-Procedure), Routine Given 03/10/2018 10:25 AM EDT 30 mLs metoprolol succinate (TOPROL-XL) XL tablet 100 mg [...] Moy RN) 0006 (Given - Provider: Carmencita Waters, RN)0548 (Given - Provider: Carmencita Waters, RN) clindamycin (CLEOCIN) 900mg in dextrose 5% 50mL [...] Discontinued, Routine 1340 (Given - Provider: Chantell Moy, FRANCESCA)2024 (Given - Provider: Carmencita Waters RN) 0824 (Given - Provider: Chantell Moy, FRANCESCA) gentamicin (GARAMYCIN) 360 mg in sodium chloride 0.9% 109 mL (COMPLETED) 360 mg, Intravenous, ONCE, 1 dose, On Fri03/10/18 at 0645, Administer over 60 Minutes, Consider alternative if CrCl is less than 20 or between 20-50., Day of Surgery (Day of Procedure), Indication for (Active or Suspected): Prophylaxis 0810 (Given - Provider: Alexis Horton MD) insulin [...] of Procedure) 0630 (Given - Provider: Nayana Martinez RN) sodium chloride 0.9 % flush 5 mL [...] Croft RN)1841 (New Bag - Provider: Chantell Moy, FRANCESCA) 0624 (Stopped - Provider: Carmencita Waters, RN) PRN Medication Order 03/09/2018 03/10/2018 03/11/2018 [...] Aleta Croft RN)1157 (Given - Provider: Aleta Croft, RN)1237 (Given - Provider: Aleta Croft RN) [...] mg, Routine 1236 (Given - Provider: Aleta Croft, RN) 0828 (Given - Provider: Chantell Moy [...] Routine documented in this encounter Care Teams Software Applications Engineer Relationship Specialty Start Date End Date Marcio Devlin [place] [address] PCP - General Family Medicine 11/11/17 documented as of this encounter
--- OUTSIDE RECORDS SUMMARY | 2024-04-08 02:32 | XMS_ITS | Encounter Summary ---
Author Organization [facility] Address [facility] [place] [address] Care Team Providers Care Check Services Clerk Name Role Phone Marcio Carranza MD Primary Care Provider [phone] Encounter Details Date Type Department Care Team (Late st Contact Info) Description 03/04/2016 2:15 PM EDT - 03/04/2016 11:59 PM EDT Hospital Encounter XRay at [address] [place] [address] Lola Haley, [facility] [place] [address] Enteropathic arthritis Discharge Disposition: Home Social History Tobacco Use [...] Sig Dispensed Refills Start Date End Date Calcium Carbonate-Vitamin D2 600-200 mg-unit Tab Take [...] mg tablet 1000MG, PO, Once daily 10/15/2010 Calcium Carbonate-Vitamin D3 500 mg-10 mcg (400 unit) Tablet Take by mouth 2 times daily. 12/24/2012 10/07/2023 Adalimumab (HUMIRA PEN) 40 mg/0.8 mL Pen Injector KitIndications:Ankyl osing spondylitis of cervical region Inject 0.8 mLs subcutaneously every 14 days. 2 kit 6 12/04/2015 05/31/2016 hydrochlorothiazide (HYDRODIURIL) 12.5 mg Tablet Take 12.5 [...] 10/15/2010 02/07/2021 documented as of this encounter Plan of Treatment Upcoming Encounters Date Type Department Care Team (Late st Contact Info) Description 04/19/2024 10:00 AM EDT Hospital Encounter Non-Invasive [place] [address] Arrived 04/29/2024 9:50 AM EDT [place] [address] Luis Alfredo Velazquez MD [facility] [place] [address] 04/29/2024 9:50 AM EDT Appointment MRI at [place] [address] Luis Alfredo Velazquez MD [facility] [place] [address] 06/07/2024 2:30 PM EDT TH Visit (TeleHealth) Gastroenterology at [place] [phone] Dajuna Rachel MD [facility] [place] [address] 07/02/2024 2:00 PM EDT Appointment Non-Invasive Cardiology Lab [place] [phone] Luis Alfredo Velazquez MD [facility] [place] [address] 07/02/2024 4:40 PM EDT Office Visit Cardiology at [address] [phone] Luis Alfredo Velazquez MD [facility] [place] [address] documented as of this encounter Procedures Procedure Name Priority Date/Time Associated Diagnosis Comments DXA CENTRAL SPINE, HIP, AND/OR WHOLE BODY (GENERIC) Routine 03/04/2016 3:08 PM EDT Enteropathic arthritis documented in this encounter Results * Dexa Central-Spine, Hip, And/Or Whole Body (03/04/2016 3:08 PM EDT) Anatomical Region Laterality Modality C-spine, Hip N/A Radiographic Raegan ging Impressions 03/05/2016 2:40 PM EDT The measurements satisfied the WHO classification for low bone mass or osteopenia. There is no significant change ??since 2011. ? Estimating Fracture Risk: ? The relationship between bone mineral density (BMD) [...] independent, risk factors in addition to BMD. ? The World Health Organization (WHO) has developed [...] website which you are encouraged to review. ? DEXA data sheets with BMD measurements and plots are available in [employer] under the imaging tab. Paper copies will be sent to providers without [employer] access. If you have received this report without the data sheet and do not have access to [employer], please contact Radiology Railroad Car Loader at [phone] Friday thru Friday 8am-4pm. Narrative 03/05/2016 2:40 PM EDT EXAMINATION: DEXA ??CENTRAL SPINE, HIP, AND/OR WHOLE BODY CLINICAL HISTORY: ? Postmenapausal woman at risk for osteoporosis TECHNIQUE: Scans were acquired at the lumbar spine, right hip FINDINGS: Lowest T-score at the diagnostic region of interest: T-score: -1.3, TITA: Lumbar spine, WHO diagnosis: low bone mass or osteopenia.. ......... Comparison......... Previous scan: 2011, Baseline scan: 1995 Total hip: Compared to the most recent which is also the baseline scan, No significant change. Total spine: Compared to the most recent scan,No significant change Compared to the baseline scan, 5% increase Procedure Note Dimple Viera MD - 03/05/2016 EXAMINATION: DEXA CENTRAL SPINE, HIP, AND/OR WHOLE BODY CLINICAL HISTORY: Postmenapausal woman at risk for osteoporosis TECHNIQUE: Scans were acquired at the lumbar spine, right hip FINDINGS: Lowest T-score at the diagnostic region of interest: T-score: -1.3, TITA: Lumbar spine, WHO diagnosis: low bone mass orosteopenia.. ......... Comparison......... Previous scan: Baseline scan: 1995 Total hip: Compared to the most recent which is also the baseline scan, Nosignificant change. Total spine: Compared to the most recent scan,No significant change Compared to the baseline scan, 5% increase IMPRESSION The measurements satisfied the WHO classification for low bone mass or osteopenia. There is no significant change since 2011. Estimating Fracture Risk: ? The relationship between bone mineral density (BMD) [...] partially independent,risk factors in addition to BMD. ? The World Health Organization (WHO) has developed [...] website which you are encouraged to review. ? DEXA data sheets with BMD measurements and plots are available in [employer] the imaging tab. Paper copies will be sent to providers without [employer] access.If you have received this report without the data sheet and do not haveaccess to [employer], please contact Radiology Railroad Car Loader at [phone] Friday thruFriday 8am-4pm. 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
--- OUTSIDE RECORDS SUMMARY | 2024-04-08 02:32 | XMS_ITS | Encounter Summary ---
Author Organization [facility] [place] [address] Care Team Providers Care Field Crop Farmer Name Role Phone Marcio Devlin DO Primary Care Provider [phone] Encounter Details Date Type Department Care Team (Late st Contact Info) Description 02/24/2018 2:40 PM EDT Clinical [place] [address] Social History Tobacco Use Types Packs/Day Years [...] as of this encounter Progress Notes * Day Vazquez RN - 02/24/2018 2:40 PM EDT PAT questionnaire reviewed with patient while in Pre Admission testing. Pt has had anesthesia in the past. Pt reports asthma, mainly aggravated by cold air. Pt reports pre diabetes, on metformin. Pre-operative instruction booklet reviewed. Patient verbalizes a good understanding of all information reviewed. PLAN: Testing: Type and screen, other labs, pt to meet with [place] APRN today Special medication instructions: Procedure date: 03/10/18 Dr Fong documented in this encounter Plan of Treatment Upcoming Encounters Date Type Department Care Team (Late st Contact Info) Description 04/19/2024 10:00 AM EDT Hospital Encounter Non-Invasive Cardiology Lab [place] [phone] Arrived 04/29/2024 9:50 AM EDT Appointment MRI at [address] Luis Alfredo Velazquez MD [facility] [place] [address] 04/29/2024 9:50 AM EDT Appointment MRI at [place] [address] Luis Alfredo Velazquez MD [facility] [place] [address] 06/07/2024 2:30 PM EDT TH Visit (TeleHealth) Gastroenterology at [place] [phone] Dajuan Rachel MD [facility] [place] [address] 07/02/2024 2:00 PM EDT Appointment Non-Invasive [place] [phone] Luis Alfredo Velazquez MD [facility] [place] [address] 07/02/2024 4:40 PM EDT Office Visit Cardiology at [address] [phone] Luis Alfredo Velazquez MD [facility] [place] [address] documented as of this encounter Visit Diagnoses Not on filedocumented in this encounter Care Teams Field Crop Farmer Relationship Specialty Start Date End Date Marcio Devlin DO [address] [place] [address] PCP - General Family Medicine 11/11/17 documented as of this encounter
--- OUTSIDE RECORDS SUMMARY | 2024-04-08 02:32 | XMS_ITS | Encounter Summary ---
Author Organization [facility] [place] [address] Care Team Providers Care Grain Mill Worker Name Role Phone Marcio Devlin DO Primary Care Provider [phone] Encounter Details Date Type Department Care Team (Late st Contact Info) Description 11/11/2017 3:30 PM EST Office [place] [phone] Nico Campbell [facility] [place] [address] Ankylosing spondylitis, unspecified site of spine (Primary Dx); Ankylosing spondylitis of cervical region Social History [...] Sign Reading Time Taken Comments Blood Pressure 158/93 11/11/2017 3:05 PM EST Pulse 62 11/11/2017 3:05 PM EST Temperature 36.6 ??C (97.9 ??F) 11/11/2017 3:05 PM ES T Respiratory Rate - - Oxygen Saturation 99% 11/11/2017 3:05 PM EST Inhaled Oxygen Concentration - - Weight 96.6 kg (213 lb) 11/11/2017 3:05 PM EST Height 167.6 cm (5' 6) 11/11/2017 3:05 PM EST Body Mass Index 34.38 11/11/2017 3:05 PM EST documented in this encounter Progress Notes * Nico Campbell, DO - 11/11/2017 3:30 PM EST Rheumatology Outpatient Clinic Follow-up: Rheumatological History: 1. UC associated Ankylosing Spondylitis - Currently on Humira q2 weeks and SSZ-both on since beginning of 2010 - Symptoms of cervical and lumbar spine involvement - H/o of iritis x 3 times. No recent episodes reported - Hx of erythema nodosum associated with UC - s/p left hip replacement back in 2005 -Options of MTX/leflunomide are limited by underlying Hx of MÉNDEZ. ?? Interval History: -She reports her sx have been quiescent and stable for >1 year now on her current medications, which is controlling her sx -Prior main issue was low back pain and recurrent iritis that has been treated and is currently andrecently has not been a problem for her -Her current medication regimen is Humira 40 mg n4abszh and Sulfasalazine 500mg BID-both of which she reports compliance taking and no ADRs. She has been on these two medications since beginning of 2010 without reported issues. ?? Currently, she reports: -Reports some nose bleeds last month that lasted for 4 days off and on and went to ED and had it packed. Also, was given an antibiotics in the ED, but not taken at home since the packing fell out. -She went to ENT and she reports they think it was due to HTN spikes from her Humira -Reports that in the ED her BP was 275/102 -No joint pains, swelling or AM stiffness -Denies fevers, chills, sweats, weight loss, N/V/D/C/abdominal pain, hematochezia, hematuria, rashes, weakness -Does admit to some more headaches-bilateral frontal and parietal areas, lasting couple hours, associated with some nausea, no photophobia, no paraesthesias. Has taken Exedren for this and helps and relieves the headaches. -Did have a C-scope February 2017 showing mild UC findings -She reports she hasn't seen GI for a while now since C-scope. Interval History: Pt is a 57 yo female with PMHx of MÉNDEZ and UC with presenting for follow up who has been maintained on Humira and Sulfasalazine since beginning of 2010 and has been overall well in the past few office visit with no reports of flares or new sx and no known reported side effects from medications. ?? -Currently asx -Exam is overall unremarkable from MSK standpoint -Labs from 04/2017 were overall ok -Currently on Humira 40 mg q2wks and Sulfasalazine 500 BID-reports compliance and no ADRs -Discussed with her the possibility of tapering her off the Humira from q2wks to q3wks if she feelsgood at the tail end of her most recent dose of Humira. She will see how she feels and decide with either keeping it the same or changing it to q3wks reasonable. ? -Will check CBC and CMP for her 3 months labs given her stable elevated LFTs (stable since 2014) from likely MÉNDEZ -Advised strongly to follow up with GI given her hx of UC, which she hasn't had flare or sx for many years -Patient understood the above and agreed with all questions answered. -Advised to follow up with PCP for better control of HTN -F/U in 3 months ROS: A 12-point ROS was obtained, pertinents in HPI, otherwise negative Current Medications: ??? SUMAtriptan (IMITREX) 25 mg Tablet ??? ferrous sulfate (IRON) 325 mg (65 mg iron) Tablet ??? fish oil-omega-3 fatty acids 1,000 mg Capsule ??? metFORMIN (GLUCOPHAGE) 500 mg Tablet ??? Adalimumab (HUMIRA PEN) 40 mg/0.8 mL Pen Injector Kit ??? ASPIRIN ORAL ??? hydrochlorothiazide (HYDRODIURIL) 12.5 mg Tablet ??? simvastatin (ZOCOR) 10 mg Tablet ??? losartan (COZAAR) 50 mg Tablet ??? METOPROLOL SUCCINATE ORAL ??? ursodiol (ACTIGALL) 300 mg capsule ??? Calcium Carbonate-Vitamin D2 600-200 mg-unit Tab [...] tablet ??? vitamin E 400 unit capsule PMHx, Soc Hx, Allergies: Reviewed in eDH Physical Exam: BP (!) 158/93 (BP Location (NBP): Right arm, Patient Position: Sitting, BP Cuff Sizes: Adult (25-34cm)) Pulse 62 Temp 36.6 ??C (97.9 ??F) (Oral) Ht 167.6 cm (5' 6) Wt 96.6 kg (213 lb) SpO2 99% BMI 34.38 kg/m2 General: well appearing, NAD, obese habitus HEENT: Mucous membranes moist, no oral ulcers, normal sclerae Neck: supple, no SPENCER, CV: RRR, no murmur appreciated Lungs: CTA throughout, no wheezing or crackles Abd: soft, NTND Skin: warm, dry, intact, no lesions or rashes noted Neuro: AAOx3 MSK: intact passive and active ROM throughout the upper and lower extremity joints, no appreciated synovitis or tenderness in the hands, wrists,elbows, shoulders, knees, ankles and feet, no deformities noted. Fist formation complete at midline. Labs/Imaging: No new labs or imaging. Assessment/Plan: Pt is a 57 yo female with PMHx of MÉNDEZ and UC with presenting for follow up who has been maintained on Humira and Sulfasalazine since beginning of 2010 for Humira and has been overall been well with sx well controlled (reports 99% resolved) with no flares and synovitis on exam currently. -Currently on Humira 40 mg q2wks and Sulfasalazine 500 BID-reports compliance and no ADRs ?? -Will check CBC and CMP -Advised strongly to follow up with GI given her hx of UC, which she hasn't had flare or sx for many years -Will continue current medication regimen: Humira q2wks and SZS 500 BID -Will have he be scheduled for MSK apt (ideally in the week not taking Humira as discussed with patient) -Pending MSK US results, may be able to try weaning her off meds possibly SZS, which she says she has been on for >25years -Otherwise, F/U 3 months. Patient was seen and discussed with Dr. Sandoval Campbell DO Rheumatology Fellow * Truong Nick MD - 11/11/2017 3:30 PM EST Rheumatology Attending Note: CLINICAL HISTORY: The pt was seen and evaluated for a follow up with Rheumatology Fellow Dr. Nico Campbell. Please refer to Dr. Campbell's clinic note for details. In brief, the pt was a 57-year-old female who returned for a follow up ulcerative colitis related arthropathy. She was currently on every other week adalimumab and twice daily sulfasalazine for immunosuppression of ulcerative colitis related arthropathy. She felt that her overall joint symptoms were under good control, although she did complain of persistent stiffness in both hands. PHYSICAL EXAMINATION: Please refer to Dr. Campbell's detailed record of physical examination. In brief, the pt's general physical and musculoskeletal examination was largely unremarkable. She presented no stigmata of active inflammatory disease. DIAGNOSTIC STUDIES: Please refer to Dr. Campbell's detailed record of diagnostic studies. ASSESSMENT AND RECOMMENDATIONS: I discussed with Dr. Campbell about this pt. I reviewed Dr. Campbell's clinical assessment and agreed with him on his treatment plans. The pt's overall joint symptoms are stable while on every other week adalimumab and twice daily sulfasalazine, 500 mg. She will undergo ultrasound studies of the hands to ev aluate for disease activities prior to instituting any plans. Truong Nick MD PhD documented in this encounter Plan of Treatment Upcoming Encounters Date Type Department Care Team (Late st Contact Info) Description 04/19/2024 10:00 AM EDT Hospital Encounter Non-[place] [address] Arrived 04/29/2024 9:50 AM EDT Appointment MRI at [place] [phone] Luis Alfredo Velazquez MD [facility] [place] [address] 04/29/2024 9:50 AM EDT [place] [phone] Luis Alfredo Velazquez MD [facility] [place] [address] 06/07/2024 2:30 PM EDT TH Visit (TeleHealth) [place] [address] [address] [facility] [place] [address] 07/02/2024 2:00 PM EDT Appointment Non-Invasive Cardiology Lab [address] Luis Alfredo Velazquez MD [facility] [place] [address] 07/02/2024 4:40 PM EDT Office Visit Cardiology at [place] [phone] Luis Alfredo [address]quez MD [facility] [place] [address] documented as of this encounter Procedures Procedure Name Priority Date/Time Associated Diagnosis Comments HEMOGRAM Routine 11/11/2017 4:11 PM EST Ankylosing spondylitis, unspecified site of spine DIFFERENTIAL, AUTOMATED Routine 11/11/2017 4:11 PM EST Ankylosing spondylitis, unspecified site of spine CBC (WITH DIFF) Routine 11/11/2017 4:11 PM EST Ankylosing spondylitis, unspecified site of spine COMPREHENSIVE METABOLIC PANEL (NON-FASTING) Routine 11/11/2017 4:11 PM EST Ankylosing spondylitis, unspecified site of spine documented in this encounter Results * (ABNORMAL) Differential, Automated (11/11/2017 4:11 PM EST) Neutrophils % 48.1 % [facility] Neutr Abs (ANC) 4.20 1.70 - 6.10 x10(3)/[facility] Lymphocytes % 38.8 % [facility] Lymphocytes Abs 3.4(H) 0.9 - 3.2 x10(3)/[facility] Monocytes % 10.3 % [facility] Monocyte Abs 0.9 0.3 - 0.9 x10(3)/[facility] Eosinophils % 1.9 % [facility] Eosinophils Abs 0.2 0.0 - 0.4 x10(3)/[facility] Basophils % 0.6 % [facility] Basophils Abs 0.0 0.0 - 0.1 x10(3)/[facility] Immature Gran % 0.30 % [facility] Comment: Immature granulocytes(IG's)percentage and absolute count will include metamyelocytes, myelocytes, and promyelocytes. Blood smears from CBCs yielding IG's will be scanned manually for concordance. If this scan disagrees with the automated IG or if promyelocytes are noted, a manual differential will be performed. Melanie Gran Abs 0.03 0.00 - 0.04 x10(3)/[facility] Blood specimen (specimen) 11/11/2017 4:11 PM EST 11/11/2017 4:32 PM EST Narrative Resulting Agency Comment Spec In Lab Nico Campbell DO HEMATOLOGY ORDERABLE S [facility] [place] [address] * (ABNORMAL) Hemogram (11/11/2017 4:11 PM EST) [facility] WBC 8.7 4.0 - 9.5 x10(3)/[facility] LABORAT[facility] RBC 5.25(H) 4.00 - 5.21 x10(6)/[facility] Hemoglobin 16.5(H) 11.7 - 15.5 gm/dL [facility] Hematocrit 47.4(H) 35.7 - 45.8 % [facility] MCV 90.3 82.6 - 94.4 fL [facility] MCH 31.4 27.1 - 32.0 pg [facility] MCHC 34.8 31.7 - 35.0 gm/dL [facility] Platelets 193 145 - 357 x10(3)/[facility] RDWSD 42.3 37.0 - 46.0 [facility] RDWCV 13.0 11.5 - 14.1 % [facility] MPV 11.2 7.6 - 12.9 [facility] nRBC % Auto 0.0 % [facility] nRBC Abs Auto 0.000 0.000 - 0.000 x10(3)/[facility] Blood specimen (specimen) 11/11/2017 4:11 PM EST 11/11/2017 4:32 PM EST Narrative Resulting Agency Comment Spec In Lab Nico Campbell DO HEMATOLOGY ORDERABLE S [facility] [place] [address] * (ABNORMAL) Comprehensive metabolic panel (non-fasting) (11/11/2017 4:11 PM EST) [facility] Glucose Lvl 86 65 - 199 mg/dL [facility] Comment:Diabetes: >=200 mg/d L plus symptoms BUN 15 8 - 18 mg/dL [facility] Creatinine 0.81 0.70 - 1.20 mg/dL [facility] Sodium 144 135 - 145 mmol/L [facility] Potassium 3.9 3.5 - 5.0 mmol/L [facility] Comment: Please note: ??Patients with WBC >100,000 may have falsely elevated Potassium levels. ??For accurate Potassium quantification in these patients send serum separator tube (gold top) for subsequent determinations. ??Contact the Clinical Chemistry Laboratory if there are any questions. Chloride 100 98 - 107 mmol/L [facility] CO2 30 22 - 31 mmol/L [facility] Anion Gap 14 5 - 15 mmol/L [facility] Calcium 9.7 8.5 - 10.5 mg/dL [facility] Total Protein 7.5 6.1 - 8.0 gm/dL [facility] Albumin 4.2 3.2 - 5.2 gm/dL [facility] AST 43(H) 0 - 30 unit/L [facility] ALT 57(H) 0 - 30 unit/L [facility] Alk Phos 94 40 - 104 unit/L [facility] Total Bilirubin 0.3 0.2 - 1.3 mg/dL [facility] Estimated GFR >60 >=60 [facility] Comment: The reported eGFR should be multiplied by 1.2 for patients. The MDRD is not an appropriate measure of renal function for patients with body mass extremes or in patients with acute kidney failure. http://Mingyian.Codenomicon/DHnkdep http://Mingyian.Codenomicon/DHMCnkf Blood specimen (specimen) 11/11/2017 4:11 PM EST 11/11/2017 4:32 PM EST Narrative Resulting Agency Comment Spec In Lab Truong Nick MD CHEMISTRY ORDERABLES [facility] [place] [address] documented in this encounter Visit Diagnoses Diagnosis Ankylosing spondylitis, unspecified site of spine- Primary documented in this encounter Care Teams Grain Mill Worker Relationship Specialty Start Date End Date Marcio Devlin DO [address] [place] [address] PCP - General Family Medicine 11/11/17 documented as of this encounter
--- OUTSIDE RECORDS SUMMARY | 2024-04-08 02:32 | XMS_ITS | Encounter Summary ---
Author Organization [facility] [place] [address] Care Team Providers Care News Analyst Name Role Phone Marcio Devlin DO Primary Care Provider [phone] Encounter Details Date Type Department Care Team (Late st Contact Info) Description 02/24/2018 4:15 PM EDT Office [place] [address] Nico Campbell [facility] [place] [address] Ankylosing spondylitis, unspecified site of spine (Primary [...] Sign Reading Time Taken Comments Blood Pressure 120/71 02/24/2018 3:42 PM EDT Pulse 61 02/24/2018 3:42 PM EDT Temperature 36.7 ??C (98 ??F) 02/24/2018 3:42 PM EDT Respiratory Rate - - Oxygen Saturation 96% 02/24/2018 3:42 PM EDT Inhaled Oxygen Concentration - - Weight 90.7 kg (200 lb) 02/24/2018 3:42 PM EDT Height 167.6 cm (5' 6) 02/24/2018 3:42 PM EDT Body Mass Index 32.28 02/24/2018 3:42 PM EDT documented in this encounter Progress Notes * Nico Campbell, - 02/24/2018 4:15 PM EDT Rheumatology Outpatient Clinic Follow-up Visit PCP: Marcio Devlin DO [address] [place] [address] Rheumatological History: 1. UC associated Ankylosing Spondylitis - Currently on Humira q2 weeks and SSZ-both on since beginning of 2010 - Symptoms of cervical and lumbar spine involvement - H/o of iritis x 3 times. No recent episodes reported - Hx of erythema nodosum associated with UC - s/p left hip replacement back in 2005 -options of MTX/leflunomide are limited by underlying Hx of MÉNDEZ. -Sx have been quiescent and stable for >1 year now on her current medications -Prior main issue was low back pain and recurrent iritis that has been treated and is currently andrecently has not been a problem for her -Her current medication regimen is Humira 40 mg [id number] and Sulfasalazine 500mg BID-both of which she reports adherence and no ADRs. She has been on these two medications since beginning of 2010??without reported issues. ? Interval History: Pt is a 57 yo [...] she reports no new or worsening sx -Has been doing well from her disease standpoint and from her medications. -Reports a recent GI bug that resolved in a few days. No Gi sx since or currently. -No joint pains, no joint swelling or AM stiffness -Denies fevers, chills, unintentional weight loss, eye pain/redness, N/V/D/abdominal pain, hematuria, hematochezia, rashes, myalgias, weakness -She is taking a combo VitD and CA supplement BID. No fractures hx. -She had a DEXA scan in 2015 that was revewied with her that showed osteopenia -Discussed with her Shingrix recommendations. Past Medical History: Past Medical History: Diagnosis Date ??? Ankylosing spondylitis 02/21/2011 ??? Hepatitis ??? Hypertension ??? Mild asthma 02/24/2018 ??? Type 2 diabetes mellitus without complication, without long-term current use of insulin 02/24/2018 Fhx, Soc Hx, Allergies: Reviewed in eDH Physical Examination: BP 120/71 Pulse 61 Temp 36.7 ??C (98 ??F) (Oral) Ht 167.6 cm (5' 6) Wt 90.7 kg (200 lb) SpO2 96% BMI 32.28 kg/m2 General: Well appearing, NAD HEENT: Mucous membranes are moist, no oral mucosal ulceration. Neck: Supple, no lymphadenopathy, full range of motion Cardiovascular: RRR, no m/r/g, normal S1/S2, 2+ radial artery pulses Lungs: CTA b/l no w/r/r Abdomen: Soft, nontender, nondistended Back: Nontender over the spine and SI joint area, some muscle tenderness to right posterior mid back Neuro: Alert and oriented x3. Skin: no obvious rashes or lesions noted Nails: no nail pitting or onycholysis MSK: intact passive and active ROM throughout the upper and lower extremity joints, no appreciated synovitis or tenderness in the hands, wrists,elbows, shoulders, knees, ankles and feet noted. Labs: Lab Results Component Value Date WBC 8.8 02/24/2018 HGB 15.5 02/24/2018 HCT 46.2 (H) 02/24/2018 PLATELET 204 02/24/2018 Imaging: DEXA (03/04/2016): IMPRESSION The measurements satisfied [...] no flares and synovitis on exam currently. MSK US done by Dr. Castro revealed no significant synovitis. Currently on Humira 40 mg q2wks and Sulfasalazine 500 BID-reports adherence and no ADRs. No refillsneeded at this time per patient. DEXA scan is about 2 years old now with osteopenia. Patient reports taking VitD/Ca combo supplements. No hx of known fractures. Will need repeat DEXA. ?? PLAN: -Will CMP as add on (already had labs done today earlier) -Will order DEXA, continue with VitD and Ca supplements -Ordered VitD to be done when she comes into [facility] for labs/tests -Will continue current medication regimen: Humira q2wks and SZS 500 BID -Can consider possibly weaning her off SZS in future if she continues to do well, which it appears she has -Discussed Shingrix vaccination and discussion with her PCP at earliest convenience. -F/U 3-6 months. Patient was seen and discussed with Dr. Tera Campbell DO Rheumatology Fellow * Lola Haley DO - 02/24/2018 4:15 PM EDT ATTENDING ADDENDUM The patient's history was reviewed, and I interviewed and examined the patient with Dr. Campbell. I agree with his summary, findings, and plan. documented in this encounter Plan of Treatment Upcoming Encounters Date Type Department Care Team (Late st Contact Info) Description 04/19/2024 10:00 AM EDT Hospital Encounter Non-[place] [phone] Arrived 04/29/2024 9:50 AM [place] [phone] Luis Alfredo Velazquez MD [facility] [place] [address] 04/29/2024 9:50 AM [place] [address] Luis Alfredo Velazquez MD [facility] [place] [address] 06/07/2024 2:30 PM EDT TH Visit (TeleHealth) Gastroenterology at [address] Dajuan Rachel MD [facility] [place] [address] 07/02/2024 2:00 PM EDT Appointment Non-[place]vasive [place] [address] Luis Alfredo Velazquez MD [facility] [place] [address] 07/02/2024 4:40 PM EDT Office Visit Cardiology at [address] [address] Luis Alfredo Velazquez MD [facility] [place] [address] documented as of this encounter Visit Diagnoses Diagnosis Ankylosing spondylitis, unspecified site of spine- Primary documented in this encounter Care Teams News Analyst Relationship Specialty Start Date End Date Marcio Devlin DO [address] [place] [address] PCP - General Family Medicine 11/11/17 documented as of this encounter
--- OUTSIDE RECORDS SUMMARY | 2024-04-08 02:32 | XMS_ITS | Encounter Summary ---
Author Organization [facility] [place] [address] Care Team Providers Care Network Technical Analyst Name Role Phone Marcio Devlin DO Primary Care Provider Encounter Details Date Type Department Care Team (Late st Contact Info) Description 01/26/2018 11:30 AM EDT Procedure visit [place] [address] Rian Castro MD [facility] GENERAL [place] [address] Ankylosing spondylitis, unspecified site of spine Social [...] as of this encounter Progress Notes * Rian Castro MD - 01/26/2018 11:30 AM EDT Rheumatology Musculoskeletal Ultrasound Report Date of service: 01/26/2018 Indication for Exam: Bilateral MCP and PIP pain B-mode ultrasound is performed utilizing an 8-18 mHz linear probe. Static real- time views in longitudinal and transverse (short axis) orientation were obtained. Images are available on the Rheumatology Image Supervising Producer Archive. Images of the left hand demonstrate no cortical irregularity or destruction. Synovial fluid and/or hypertrophy are not noted at the joint margins, although at the left of the dorsal 2nd MCP possibly synovial hypertrophy is noted. Negative power doppler and no rheumatoid erosions are seen. Flexor tendons are intact with no tenosynovial fluid or distension. Dynamic testing shows normal motion of the flexor tendon. No evidence of dactylitis. Impression: Images of the left hand are consistent with no evidence of active synovitis, though with mild synovial thickening of the 2nd MCP which could be consistent with mild synovitis without any power doppersignal. documented in this encounter Plan of Treatment Upcoming Encounters Date Type Department Care Team (Late st Contact Info) Description 04/19/2024 10:00 AM EDT Hospital Encounter Non-[place] [address] Arrived 04/29/2024 9:50 AM EDT [place] [address] Luis Alfredo Velazquez MD [facility] [place] [address] 04/29/2024 9:50 AM EDT Appointment MRI at [place] [phone] Luis Alfredo Velazquez MD [facility] [place] [address] 06/07/2024 2:30 PM EDT TH Visit (TeleHealth) [place] [phone] Dajuan Rachel MD [facility] [place] [address] 07/02/2024 2:00 PM EDT Appointment Non-[place]vasive [place] [address] Luis Alfredo Velazquez MD [facility] [place] [address] 07/02/2024 4:40 PM EDT Office Visit Cardiology at [address] [phone] Luis Alfredo Velazquez MD [facility] [place] [address] documented as of this encounter Visit Diagnoses Diagnosis Ankylosing spondylitis, unspecified site of spine documented in this encounter Care Teams Network Technical Analyst Relationship Specialty Start Date End Date Marcio Devlin DO [address] [place] [address] [place] [address] PCP - General Family Medicine 11/11/17 documented as of this encounter
--- OUTSIDE RECORDS SUMMARY | 2024-04-08 02:32 | XMS_ITS | Encounter Summary ---
Author Organization Formerly [facility] [place] [address] Care Team Providers Care Hr Intern Name Role Phone Marcio Carranza MD Primary Care Provider [phone] Encounter Details Date Type Department Care Team (Late st Contact Info) Description 05/06/2017 4:15 PM EDT [place] [id number] Nico Campbell [facility] [place] [address] Ankylosing spondylitis, unspecified site of spine (Primary [...] Sign Reading Time Taken Comments Blood Pressure 155/86 05/06/2017 4:04 PM EDT Pulse 77 05/06/2017 4:04 PM EDT Temperature 36.7 ??C (98.1 ??F) 05/06/2017 4:04 PM ED T Respiratory Rate - - Oxygen Saturation 97% 05/06/2017 4:04 PM EDT Inhaled Oxygen Concentration - - Weight 96.2 kg (212 lb) 05/06/2017 4:04 PM EDT Height 167.6 cm (5' 6) 05/06/2017 4:04 PM EDT Body Mass Index 34.22 05/06/2017 4:04 PM EDT documented in this encounter Progress Notes * Nico Campbell, - 05/06/2017 4:15 PM EDT Rheumatology Outpatient Clinic Follow-up: Rheumatological History: 1. UC associated Ankylosing Spondylitis - Currently on Humira q2 weeks and SSZ - Symptoms of cervical and lumbar spine involvement - H/o of iritis x 3 times. No recent episodes - Hx of erythema nodosum associated with UC - s/p left hip replacement back in 2005 Options of MTX/leflunomide are limited by underlying Hx of MÉNDEZ. Interval History: Pt is here to follow up on the above and was last here in 12/[address] Saenz. She reports since then, she has had no major issues and offers no major complaints currently. She reports her sx have been quiescent and stable for >1 year now on her current medications, which is controlling her sx Prior main issue was low back pain and recurrent iritis that has been treated and is currently and recently has not been a problem for her Her current medication regimen is Humira 40 mg [id number] and Sulfasalazine 500mg BID-both of which she reports compliance taking and no ADRs. She has been on these two medications for >1 year without reported issues She informed me that last visit she was instructed to take fish oil and since then, her residual joint pain resolved Denies any joint pin, swelling, AM stiffness currently No recent infections, illnesses Denies fevers, chills, night sweats, weight loss, CP, SOB, N/V/D/Abdominal pain, hematochezia, hematuria, dysuria, rashes, hair loss, oral ulcers, eye pain/redness, dry eyes, dry mouth, photosensitivity. ROS: A 12-point ROS was obtained, pertinents in HPI, otherwise negative Current Medications: ??? ferrous sulfate (IRON) 325 mg (65 [...] Allergies: Reviewed in eDH Physical Exam: BP 155/86 Pulse 77 Temp 36.7 ??C (98.1 ??F) (Oral) Ht 167.6 cm (5' 6) Wt 96.2 kg (212 lb) SpO2 97% BMI 34.22 kg/m2 General: well appearing, NAD HEENT: Mucous membranes moist, no oral ulcers, normal sclerae Neck: supple, no SPENCER, CV: RRR, no murmur appreciated Lungs: CTA throughout, no wheezing or crackles Abd: soft, NTND, +BS Skin: warm, dry, intact, no lesions or rashes noted Neuro: AAOx3, CN2-12 intact, no focal deficits, Strength testing +5/5 in b/l UE and LE MSK: intact passive and active ROM throughout the upper and lower extremity joints, no appreciated synovitis or tenderness in the hands, wrists,elbows, shoulders, knees, ankles and feet, no deformities noted Labs/Imaging: No new imaging. Prior imaging revealed ankylosed SI joints b/l Assessment/Plan: -Pt currently following up for ankylosing spondylitis with UC managed on Humira 40 mg [id number] and Sulfasalazine 500 mg BID, which she has been on for >1 year and doing well on this regimen with noreported ADRs -She has been stable and reports no new or worsening symptoms for >1 year now -Exam showed no active synovitis or other joint findings indicating active disease -Last set of labs in 12/2016 were WNL -Will check CBC and CMP for her 3 months labs given her stable elevated LFTs (stable since 2014) from likely MÉNDEZ -Advised strongly to follow up with GI given her hx of UC, which she hasn't had flare or sx for many years -Patient understood the above and agreed with all questions answered. Patient was seen and discussed with Dr. Horace Campbell DO Rheumatology Fellow * Kasey Retana MD - 05/06/2017 4:15 PM EDT I have seen the patient and reviewed the resident's above history and I agree with the details as written. The assessment and plan were formulated in discussion with me and I agree with them as documented. Ms. Machado is 57 yo F with Ankylosing spondylitis in the setting of ulcerative colitis, on SSZ 500 mg bid, humira 40 mg sc every other week. H/O MÉNDEZ with elevated but stable LFT???s. H/O iritis x3 and erythema nodosum. Exam: No active synovitis, SI joint tenderness. Overall with low disease activity on current management from musculoskeletal and GI standpoint. Patient was advised to establish care with Gastroenterology. documented in this encounter Plan of Treatment Upcoming Encounters Date Type Department Care Team (Late st Contact Info) Description 04/19/2024 10:00 AM EDT Hospital Encounter Non-Invasive [place] [address] Arrived 04/29/2024 9:50 AM [place] [phone] Luis Alfredo Velazquez MD [facility] [place] [address] 04/29/2024 9:50 AM EDT [place] [address] Luis Alfredo Velazquez MD [facility] [place] [address] 06/07/2024 2:30 PM EDT TH Visit (TeleHealth) Gastroenterology at [address] Dajuan Rachel MD [facility] GASTROENTER[place] [address] 07/02/2024 2:00 PM EDT Appointment Non-Invasive Cardiology Lab [place] [phone] Luis Alfredo Velazquez MD [facility] [place] [address] 07/02/2024 4:40 PM EDT Office Visit Cardiology at [place] [phone] Luis Alfredo Velazquez MD [facility] [place] [address] documented as of this encounter Procedures Procedure Name Priority Date/Time Associated Diagnosis Comments HEMOGRAM Routine 05/06/2017 5:03 PM EDT Ankylosing spondylitis, unspecified site of spine DIFFERENTIAL, AUTOMATED Routine 05/06/2017 5:03 PM EDT Ankylosing spondylitis, unspecified site of spine CBC (WITH DIFF) Routine 05/06/2017 5:03 PM EDT Ankylosing spondylitis, unspecified site of spine COMPREHENSIVE METABOLIC PANEL (NON-FASTING) Routine 05/06/2017 5:03 PM EDT Ankylosing spondylitis, unspecified site of spine documented in this encounter Results * Differential, Automated (05/06/2017 5:03 PM EDT) Neutrophils % 47.2 % [facility] Neutr Abs (ANC) 3.79 1.70 - 6.10 x10(3)/[facility] Lymphocytes % 39.6 % [facility] Lymphocytes Abs 3.2 0.9 - 3.2 x10(3)/[facility] Monocytes % 10.4 % [facility] Monocyte Abs 0.8 0.3 - 0.9 x10(3)/[facility] Eosinophils % 1.9 % [facility] Eosinophils Abs 0.2 0.0 - 0.4 x10(3)/[facility] Basophils % 0.5 % [facility] Basophils Abs 0.0 0.0 - 0.1 x10(3)/[facility] Immature Gran % 0.40 % [facility] Comment: Immature granulocytes(IG's)percentage and absolute count will include metamyelocytes, myelocytes, and promyelocytes. Blood smears from CBCs yielding IG's will be scanned manually for concordance. If this scan disagrees with the automated IG or if promyelocytes are noted, a manual differential will be performed. Melanie Gran Abs 0.03 0.00 - 0.04 x10(3)/[facility] Blood specimen (specimen) 05/06/2017 5:03 PM EDT 05/06/2017 5:10 PM EDT Narrative Resulting Agency Comment Spec In Lab Kasey Retana MD HEMATOLOGY ORDERABLE S [facility] [place] [address] * (ABNORMAL) Hemogram (05/06/2017 5:03 PM EDT) WBC 8.0 4.0 - 9.5 x10(3)/[facility] RBC 5.03 4.00 - 5.21 x10(6)/[facility] Hemoglobin 15.4 11.7 - 15.5 gm/dL [facility] Hematocrit 46.2(H) 35.7 - 45.8 % [facility] MCV 91.8 82.6 - 94.4 fL [facility] MCH 30.6 27.1 - 32.0 pg [facility] MCHC 33.3 31.7 - 35.0 gm/dL [facility] Platelets 204 145 - 357 x10(3)/[facility] RDWSD 44.7 37.0 - 46.0 [facility] RDWCV 13.2 11.5 - 14.1 % [facility] MPV 11.0 7.6 - 12.9 [facility] nRBC % Auto 0.0 % [facility] nRBC Abs Auto 0.000 0.000 - 0.000 x10(3)/[facility] Blood specimen (specimen) 05/06/2017 5:03 PM EDT 05/06/2017 5:10 PM EDT Narrative Resulting Agency Comment Spec In Lab Kasey Retana MD HEMATOLOGY ORDERABLE S [facility] [place] [address] * (ABNORMAL) Comprehensive metabolic panel (non-fasting) (05/06/2017 5:03 PM EDT) [facility] Glucose Lvl 164 65 - 199 mg/dL [facility] Comment:Diabetes: >=200 mg/d L plus symptoms BUN 15 8 - 18 mg/dL [facility] Creatinine 0.75 0.70 - 1.20 mg/dL [facility] Comment: Please note that the pediatric reference intervals supplied above were not validated at [facility]. Results from pediatric patients should be interpreted in conjunction to the patient's age, height and muscle mass. Sodium 142 135 - 145 mmol/L [facility] Potassium 4.0 3.5 - 5.0 mmol/L [facility] Comment: Please note: ??Patients with WBC >100,000 may have falsely elevated Potassium levels. ??For accurate Potassium quantification in these patients send serum separator tube (gold top) for subsequent determinations. ??Contact the Clinical Chemistry Laboratory if there are any questions. Chloride 102 98 - 107 mmol/L [facility] CO2 27 22 - 31 mmol/L [facility] Anion Gap 13 5 - 15 mmol/L [facility] Calcium 9.9 8.5 - 10.5 mg/dL [facility] Total Protein 7.6 6.1 - 8.0 gm/dL [facility] Albumin 4.1 3.2 - 5.2 gm/dL [facility] AST 37(H) 0 - 30 unit/L [facility] ALT 42(H) 0 - 30 unit/L [facility] Alk Phos 89 40 - 104 unit/L [facility] Total Bilirubin 0.3 0.2 - 1.3 mg/dL [facility] Estimated GFR >60 >=60 [facility] Comment: This estimated GFR (eGFR) value was calculated using the MDRD equation which has been validated on patients between the ages of 18 and 70. The MDRD should not be used to assess kidney function in patients < 18 years of age or in patients with extremes of body mass, or in patients with acute kidney failure. This value should be multiplied by 1.2 for patients. For further information please copy and paste the following links into your internet browser. http://DEM[employer]/DHnkdep http://[employer]/DHMCnkf Blood specimen (specimen) 05/06/2017 5:03 PM EDT 05/06/2017 5:10 PM EDT Narrative Resulting Agency Comment Spec In Lab Kasey Retana MD CHEMISTRY ORDERABLES [facility] [place] [address] documented in this encounter Visit Diagnoses Diagnosis Ankylosing spondylitis, unspecified site of spine- Primary documented in this encounter Care Teams Hr Intern Relationship Specialty Start Date End Date Marcio Carranza MD [address] [place] [address] PCP - General 08/07/10 11/10/17 documented as of this encounter
--- OUTSIDE RECORDS SUMMARY | 2024-04-08 02:32 | XMS_ITS | Encounter Summary ---
Author Organization [facility] [place] [address] Care Team Providers Care [employer] Operator Name Role Phone Marcio Carranza MD Primary Care Provider [phone] Encounter Details Date Type Department Care Team (Late st Contact Info) Description 08/14/2017 11:00 AM EST Office [place] [phone] Nico Campbell [facility] [place] [address] Ankylosing spondylitis, unspecified site of spine (Primary [...] Sign Reading Time Taken Comments Blood Pressure 153/78 08/14/2017 10:52 AM EST Pulse 55 08/14/2017 10:52 AM EST Temperature 36.9 ??C (98.4 ??F) 08/14/2017 10:[address] Respiratory Rate - - Oxygen Saturation 97% 08/14/2017 10:52 AM EST Inhaled Oxygen Concentration - - Weight 94.8 kg (209 lb) 08/14/2017 10:52 AM EST Height 167.6 cm (5' 6) 08/14/2017 10:52 AM EST Body Mass Index 33.73 08/14/2017 10:52 AM EST documented in this encounter Progress Notes * Nico Campbell, DO - 08/14/2017 11:00 AM EST Rheumatology Outpatient Clinic Follow-up: Rheumatological History: [...] by underlying Hx of MÉNDEZ. Interval History: -She reports her sx have been quiescent and stable for >1 year now on her current medications, which is controlling her sx -Prior main issue was low back pain and recurrent iritis that has been treated and is currently andrecently has not been a problem for her -Her current medication regimen is Humira 40 mg [id number] and Sulfasalazine 500mg BID-both of which she reports compliance taking and no ADRs. She has been on these two medications since beginning of 2010 without reported issues. Currently, she reports: -Reports some nose bleeds [...] GI for a while now since C-scope. ROS: A 12-point ROS was obtained, pertinents [...] tablet ??? vitamin E 400 unit capsule ??? SUMAtriptan (IMITREX) 25 mg Tablet PMHx, Soc Hx, Allergies: Reviewed in eDH Physical Exam: BP 153/78 Pulse 55 Temp 36.9 ??C (98.4 ??F) (Oral) Ht 167.6 cm (5' 6) Wt 94.8 kg (209 lb) SpO2 97% BMI 33.73 kg/m2 General: well appearing, NAD HEENT: Mucous membranes moist, no oral ulcers, normal sclerae Neck: supple, no SPENCER CV: RRR, no murmur appreciated Lungs: CTA throughout, no wheezing or crackles Abd: soft, NTND Skin: warm, dry, intact, no lesions or rashes noted Neuro: AAOx3, Strength testing +5/5 in b/l UE and LE MSK: intact passive and active ROM throughout the upper and lower extremity joints, no appreciated synovitis or tenderness in the hands, wrists,elbows, shoulders, knees, ankles and feet, no deformities noted. FABERS negative. Labs/Imaging: Reviewed. No new labs Assessment/Plan: Pt is a 57 yo female with PMHx of MÉNDEZ and UC with presenting for follow up who has been maintained on Humira and Sulfasalazine since beginning of 2010 and has been overall well in the past few office visit with no reports of flares or new sx and no known reported side effects from medications. -Currently asx -Exam is overall unremarkable from [...] same or changing it to q3wks reasonable. -Will check CBC and CMP for her [...] control of HTN -F/U in 3 months Patient was seen and discussed with Dr. Sandoval Campbell DO Rheumatology Fellow * Truong Nick MD - 08/14/2017 11:00 AM EST Rheumatology Attending Note: CLINICAL HISTORY: The pt was seen and evaluated for a follow up with Rheumatology Fellow Dr. Nico Campbell. Please refer to Dr. Campbell's clinic note for details. In brief, the pt was a 57-year-old female who returned for a follow up of ulcerative colitis related arthropathy. She was currently on [id number] in conjunction with twice daily sulfasalazine for immunosuppression of her ulcerative colitis related arthropathy. She felt that her neck pain, back pain, and multiple joint pain was undergood control while on her current regimen. PHYSICAL EXAMINATION: Please refer to Dr. Campbell's detailed record of physical examination. In brief, the pt's general physical and musculoskeletal examination was largely unremarkable. She presented no stigmata of active disease. DIAGNOSTIC STUDIES: Please refer to Dr. Campbell's detailed record of diagnostic studies. ASSESSMENT AND RECOMMENDATIONS: I discussed with Dr. Campbell about this pt. I reviewed Dr. Campbell's clinical assessment and agreed with him on his treatment plans. The pt's overall joint symptoms are under excellent control while on adalimumab and low dose sulfasalazine. She will undergo a trial of tapering adalimumab. Truong Nick MD PhD documented in this encounter Miscellaneous Notes * Addendum Note - Cece Gonsales - 08/14/2017 11:59 AM ESTAddended by: CECE GONSALES on: 08/14/2017 11:59 AM Modules accepted: Orders documented in this encounter Plan of Treatment Upcoming Encounters Date Type Department Care Team (Late st Contact Info) Description 04/19/2024 10:00 AM EDT Hospital Encounter Non-[place] [address] Arrived 04/29/2024 9:50 AM [place] [phone] Luis Alfredo Velazquez MD [facility] [place] [address] 04/29/2024 9:50 AM [place] [phone] Luis Alfredo Velazquez MD [facility] [place] [address] 06/07/2024 2:30 PM EDT TH Visit (TeleHealth) [place] [address] Dajuan Rachel MD [facility] [place] [address] 07/02/2024 2:00 PM EDT Appointment Non-[place] [address] Luis Alfredo Velazquez MD [facility] CARDIOLOGY [place], [place] [phone] 07/02/2024 4:40 PM EDT Office Visit Cardiology at [address] [phone] Luis Alfredo Velazquez MD [facility] [place] [address] documented as of this encounter Procedures Procedure Name Priority Date/Time Associated Diagnosis Comments HEMOGRAM Routine 08/14/2017 12:06 PM EST Ankylosing spondylitis, unspecified site of spine DIFFERENTIAL, AUTOMATED Routine 08/14/2017 12:06 PM EST Ankylosing spondylitis, unspecified site of spine CBC (WITH DIFF) Routine 08/14/2017 12:06 PM EST Ankylosing spondylitis, unspecified site of spine COMPREHENSIVE METABOLIC PANEL (NON-FASTING) Routine 08/14/2017 12:06 PM EST Ankylosing spondylitis, unspecified site of spine documented in this encounter Results * Differential, Automated (08/14/2017 12:06 PM EST) Neutrophils % 41.8 % [facility] Neutr Abs (ANC) 2.90 1.70 - 6.10 x10(3)/[facility] LAB[facility] Lymphocytes % 46.0 % [facility] Lymphocytes Abs 3.2 0.9 - 3.2 x10(3)/[facility] Monocytes % 9.0 % [facility] Monocyte Abs 0.6 0.3 - 0.9 x10(3)/[facility] Eosinophils % 2.2 % [facility] Eosinophils Abs 0.2 0.0 - 0.4 x10(3)/[facility] Basophils % 0.7 % [facility] Basophils Abs 0.0 0.0 - 0.1 x10(3)/[facility] Immature Gran % 0.30 % [facility] Comment: Immature granulocytes(IG's)percentage and absolute count will include metamyelocytes, myelocytes, and promyelocytes. Blood smears from CBCs yielding IG's will be scanned manually for concordance. If this scan disagrees with the automated IG or if promyelocytes are noted, a manual differential will be performed. Melanie Gran Abs 0.02 0.00 - 0.04 x10(3)/[facility] Blood specimen (specimen) 08/14/2017 12:06 PM EST 08/14/2017 12:10 PM EST Narrative Resulting Agency Comment Spec In Lab Truong Nick MD HEMATOLOGY ORDERABLE S [facility] [place] [address] * (ABNORMAL) Hemogram (08/14/2017 12:06 PM EST) WBC 6.9 4.0 - 9.5 x10(3)/[facility] RBC 5.32(H) 4.00 - 5.21 x10(6)/[facility] Hemoglobin 16.2(H) 11.7 - 15.5 gm/dL [facility] Hematocrit 49.0(H) 35.7 - 45.8 % [facility] MCV 92.1 82.6 - 94.4 fL [facility] MCH 30.5 27.1 - 32.0 pg [facility] MCHC 33.1 31.7 - 35.0 gm/dL [facility] Platelets 196 145 - 357 x10(3)/[facility] RDWSD 43.8 37.0 - 46.[address] [facility] RDWCV 13.1 11.5 - 14.1 % [facility] MPV 11.1 7.6 - 12.[address] [facility] nRBC % Auto 0.0 % [facility] nRBC Abs Auto 0.000 0.000 - 0.000 x10(3)/[facility] Blood specimen (specimen) 08/14/2017 12:06 PM EST 08/14/2017 12:10 PM EST Narrative Resulting Agency Comment Spec In Lab Truong Nick MD HEMATOLOGY ORDERABLE S [facility] [place] [address] * (ABNORMAL) Comprehensive metabolic panel (non-fasting) (08/14/2017 12:06 PM EST) Glucose Lvl 107 65 - 199 mg/dL [facility] Comment:Diabetes: >=200 mg/d L plus symptoms BUN 17 8 - 18 mg/dL [facility] Creatinine 0.81 0.70 - 1.20 mg/dL [facility] Sodium 145 135 - 145 mmol/L [facility] Potassium 4.3 3.5 - 5.0 mmol/L [facility] Comment: Please note: ??Patients with WBC >100,000 may have falsely elevated Potassium levels. ??For accurate Potassium quantification in these patients send serum separator tube (gold top) for subsequent determinations. ??Contact the Clinical Chemistry Laboratory if there are any questions. Chloride 103 98 - 107 mmol/L [facility] CO2 30 22 - 31 mmol/L [facility] Anion Gap 12 5 - 15 mmol/L [facility] Calcium 9.9 8.5 - 10.5 mg/dL [facility] Total Protein 7.8 6.1 - 8.0 gm/dL [facility] Albumin 4.1 3.2 - 5.2 gm/dL [facility] AST 75(H) 0 - 30 unit/L [facility] ALT 84(H) 0 - 30 unit/L [facility] Alk Phos 91 40 - 104 unit/L [facility] Total Bilirubin 0.4 0.2 - 1.3 mg/dL [facility] Estimated GFR >60 >=60 [facility] Comment: The reported eGFR should be multiplied by 1.2 for patients. The MDRD is not an appropriate measure of renal function for patients with body mass extremes or in patients with acute kidney failure. http://[employer]/DHnkdep http://[employer]/DHMCnkf Blood specimen (specimen) 08/14/2017 12:06 PM EST 08/14/2017 12:10 PM EST Narrative Resulting Agency Comment Spec In Lab Truong Nick MD CHEMISTRY ORDERABLES Performing Organization Address City/State/[facility] Co de Phone Number [facility] [place] [address] documented in this encounter Visit Diagnoses Diagnosis Ankylosing spondylitis, unspecified site of spine- Primary documented in this encounter Care Teams [employer] Operator Relationship Specialty Start Date End Date Marcio Carranza MD [address] [place] [address] PCP - General 08/07/10 11/10/17 documented as of this encounter
--- OUTSIDE RECORDS SUMMARY | 2024-04-08 02:32 | XMS_ITS | Encounter Summary ---
Author Organization [facility] [place] [address] Care Team Providers Care Retail Cashier Associate Name Role Phone Marcio Carranza MD Primary Care Provider [phone] Encounter Details Date Type Department Care Team (Late st Contact Info) Description 01/02/2017 1:45 PM EDT Office Visit [place] [phone] Albert Saenz MD [facility] [place] [address] Spondyloarthritis; Ankylosing spondylitis of cervical region Social History [...] Sign Reading Time Taken Comments Blood Pressure 150/83 01/02/2017 1:27 PM EDT Pulse 67 01/02/2017 1:27 PM EDT Temperature 37 ??C (98.6 ??F) 01/02/2017 1:27 PM EDT Respiratory Rate - - Oxygen Saturation 96% 01/02/2017 1:27 PM EDT Inhaled Oxygen Concentration - - Weight 93.4 kg (206 lb) 01/02/2017 1:27 PM EDT Height 167.6 cm (5' 6) 01/02/2017 1:27 PM EDT Body Mass Index 33.25 01/02/2017 1:27 PM EDT documented in this encounter Progress Notes * Albert Saenz MD - 01/02/2017 1:45 PM EDT Rheumatology Fellow Outpatient Progress Note Rheumatologic Problem List 1. UC associated Ankylosing Spondylitis - Currently on Humira q2 weeks and SSZ - Symptoms of cervical and lumbar spine involvement - H/o of iritis x 3 times. No recent episodes - Hx of erythema nodosum associated with UC - s/p left hip replacement back in 2005 Options of MTX/leflunomide are limited by underlying Hx of MÉNDEZ. PMH -GERD -MÉNDEZ HPI: Kim Perez is a 56 y.o. female returns today for f/u of UC with ankylosis. At last visit she was noted to have synovitis in her small joints of hands for which we planned to increase her humira to q weekly. Pt however continued humira q 2 weekly as she felt her symptoms have some what improved over the next few days. She is now on SSZ and Humira q 2 weekly and feels her joint symptoms are adeuately controlled. However, she does notice some baseline small joint Sx's in the hand which get worse with activity. AM stiffness- always feels stiff. No swelling of hand joints. No LBP, Neck pain or large joint Sx's. No new rash. No SOB, no blurring of vision,photophobia, no skin rash. Last colo- 2010- Pancolitis changes. One polyp removed. Next colo pending. ROS: A ROS was performed and negative except for above mentioned pertinent positives. Patient Active Problem List Diagnosis Code ??? Ulcerative colitis K51.90 ??? DIFFICULT AIRWAY T88.4XXA ??? MÉNDEZ (nonalcoholic steatohepatitis) K75.81 ??? Lipid disorder E78.9 ??? Ankylosing spondylitis M45.9 ??? Hypertension I10 ??? GERD (gastroesophageal reflux disease) K21.9 Allergies Reviewed and updated in eDH Medications: Humira and SSZ All others reviewed in eDH Physical Exam: BP 150/83 Pulse 67 Temp 37 ??C (98.6 ??F) (Oral) Ht 167.6 cm (5' 6) Wt 93.4 kg (206 lb) SpO2 96% BMI 33.25 kg/m2 General: AAOx3, NAD, pleasant HEENT: Mucous membranes are moist, no oral mucosal ulcerations Neck: Supple, no lymphadenopathy, limited range of motion in all planes due to stiffness and pain. Back: Nontender over the spine and costovertebral angles bilaterally. Malcom's - 10 to 15.5 cm. Occiput-wall- 6 cm Extremities Shoulders: FROM, non-tender to palpation Elbows:FROM, (-)pain, (-)nodules Wrists: FROM, no swelling, non-tender Hands: Minimal tenderness but some erythema over MCP's and PIP's b/l. No swelling. full claw and fist Hips: FROM Knees: (-)effusions, non-tender ROM Ankles: FROM, non-tender, no swelling Feet: no MTP compression tenderness Vascular: Pulses are equal in all extremities. Labs: Last 3 LFTs Recent Labs 09/27/16 1210 AST 46* ALT 55* ALKPHOS 73 BILITOT 0.5 BILIDIR 0.1 Last CRP, SEDRATE Recent Labs 09/27/16 1210 CRP 3.3 X ray L spine and C spine There is evidence of some degenerative disc disease at L5-S1. 2. Accentuated lordotic curvature of the lumbar spine. 3. Ankylotic fusion of both SI joints. 4. A portion of a total left hip prosthesis is noted. C spine There is possible ankylosis of the C2-C3-C4 facets. Results for KIM PEREZ ( ) as of 01/02/2017 14:08 Ref. Range 09/27/2016 12:10 Anti-Cyc Cit Peptide Latest Ref Range: <=17.0 unit/mL <8.0 RF Latest Ref Range: <=14 IU/mL <10 CRP High Sens Latest Units: mg/L 3.3 CRP Cardiac Risk Unknown High Risk Assessment: Kim Perez is a 56 y.o. female who presents today for follow up visit for ankylosis of the spine with UC. Her disease has largely been under control with humira and SSZ. At last visit she was noted to havesome synovitis in her small joints of hands for which we planned to increase her humira to q weekly. Pt however continued humira q 2 weekly as she felt her symptoms have some what improved. She continues to have some small joint discomfort but with normal inflammatory markers, absence synovitis and absence of barnhart scale/doppler signal on MSK US, I believe these could be secondary to DJD. Weight loss/exersise seem to have helped with MÉNDEZ as seen by some improvement in transaminitis. 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 - Tylenol prn for DJD. - Rpt ESR, CRP, CMP,CBC today. - Vaccinations- Premovax- 2013, prevnar 13 2015 - Bone health: Rpt DEXA (02/28)- T-score: -1.3, TITA: Lumbar spine, WHO diagnosis: low bone mass or osteopenia Continue Vit D and Calcium. RTC- .4 mos. * Dayton Sarkar II, DO - 01/02/2017 1:45 PM EDT I was the attending physician supervising the resident in the above care. For the purposes of billing, the resident provided the care. documented in this encounter Plan of Treatment Upcoming Encounters Date Type Department Care Team (Late st Contact Info) Description 04/19/2024 10:00 AM EDT Hospital Encounter [place] [address] Arrived 04/29/2024 9:50 AM EDT Appointment [place] [address] Luis Alfredo Velazquez MD [facility] [place] [address] 04/29/2024 9:50 AM EDT Appointment MRI at [place] [phone] Luis Alfredo Velazquez MD [facility] [place] [address] 06/07/2024 2:30 PM EDT TH Visit (TeleHealth) Gastroenterology at [place] [phone] Dajuan Rachel MD [facility] [place] [address] 07/02/2024 2:00 PM EDT Appointment [place] [phone] Luis Alfredo Velazquez MD [facility] [place] [address] 07/02/2024 4:40 PM EDT Office Visit Cardiology at [address] [phone] Luis Alfredo Velazquez MD [facility] [place] [address] documented as of this encounter Procedures Procedure Name Priority Date/Time Associated Diagnosis Comments CRP, ACUTE INFLAMMATION Routine 01/02/2017 2:31 PM EDT Spondyloarthritis Ankylosing spondylitis of cervical region HEMOGRAM Routine 01/02/2017 2:31 PM EDT Spondyloarthritis Ankylosing spondylitis of cervical region DIFFERENTIAL, AUTOMATED Routine 01/02/2017 2:31 PM EDT Spondyloarthritis Ankylosing spondylitis of cervical region CBC (WITH DIFF) Routine 01/02/2017 2:31 PM EDT Spondyloarthritis Ankylosing spondylitis of cervical region COMPREHENSIVE METABOLIC PANEL (NON-FASTING) Routine 01/02/2017 2:31 PM EDT Spondyloarthritis Ankylosing spondylitis of cervical region documented in this encounter Results * (ABNORMAL) Differential, Automated (01/02/2017 2:31 PM EDT) Neutrophils % 46.5 % [facility] Neutr Abs (ANC) 3.93 1.70 - 6.10 x10(3)/[facility] LABORATORY Lymphocytes % 40.1 % [facility] Lymphocytes Abs 3.4(H) 0.9 - 3.2 x10(3)/[facility] LABORATORY Monocytes % 11.1 % [facility] Monocyte Abs 0.9 0.3 - 0.9 x10(3)/[facility] LABORATORY Eosinophils % 1.3 % [facility] Eosinophils Abs 0.1 0.0 - 0.4 x10(3)/[facility] LABORATORY Basophils % 0.5 % [facility] Basophils Abs 0.0 0.0 - 0.1 x10(3)/[facility] LABORATORY Immature Gran % 0.50 % [facility] Comment: Immature granulocytes(IG's)percentage and absolute count will include metamyelocytes, myelocytes, and promyelocytes. Blood smears from CBCs yielding IG's will be scanned manually for concordance. If this scan disagrees with the automated IG or if promyelocytes are noted, a manual differential will be performed. Melanie Gran Abs 0.04 0.00 - 0.04 x10(3)/[facility] LABORATORY Blood specimen (specimen) 01/02/2017 2:31 PM EDT 01/02/2017 2:36 PM EDT Narrative Resulting Agency Comment Spec In Lab Dayton Sarkar II, DO [place] [address] * Hemogram (01/02/2017 2:31 PM EDT) WBC 8.4 4.0 - 9.5 x10(3)/[facility] LABORATORY RBC 4.91 4.00 - 5.21 x10(6)/[facility] LABORATORY Hemoglobin 15.5 11.7 - 15.5 gm/dL [facility] Hematocrit 44.7 35.7 - 45.8 % [facility] MCV 91.0 82.6 - 94.4 fL [facility] MCH 31.6 27.1 - 32.0 pg [facility] MCHC 34.7 31.7 - 35.0 gm/dL [facility] Platelets 260 145 - 357 x10(3)/[facility] LABORATORY RDWSD 41.6 37.0 - 46.0 [facility] LABOR[facility]ORY RDWCV 12.6 11.5 - 14.1 % [facility] MPV 10.6 7.6 - 12.9 fL [facility] nRBC % Auto 0.0 % [facility] nRBC Abs Auto 0.000 0.000 - 0.000 x10(3)/[facility] Blood specimen (specimen) 01/02/2017 2:31 PM EDT 01/02/2017 2:36 PM EDT Narrative Resulting Agency Comment Spec In Lab Dayton Sarkar II, [place] [address] * (ABNORMAL) CRP, acute inflammation (01/02/2017 2:31 PM EDT) CRP 5.2(H) <=4.9 mg/L [facility] Blood specimen (specimen) 01/02/2017 2:31 PM EDT 01/02/2017 2:36 PM EDT Narrative Resulting Agency Comment Spec In Lab Dayton Sarkar II, DO CHEMISTRY DARI MOREJON [facility] [place] [address] * (ABNORMAL) Comprehensive metabolic panel (non-fasting) (01/02/2017 2:31 PM EDT) Glucose Lvl 117 65 - 199 mg/dL [facility] Comment:Diabetes: >=200 mg/d L plus symptoms BUN 14 8 - 18 mg/dL [facility] Creatinine 0.68(L) 0.70 - 1.20 mg/dL [facility] Comment: Please note that the pediatric reference intervals supplied above were not validated at [facility]. Results from pediatric patients should be interpreted in conjunction to the patient's age, height and muscle mass. Sodium 142 135 - 145 mmol/L [facility] Potassium 3.9 3.5 - 5.0 mmol/L [facility] Comment: Please note: ??Patients with WBC >100,000 may have falsely elevated Potassium levels. ??For accurate Potassium quantification in these patients send serum separator tube (gold top) for subsequent determinations. ??Contact the Clinical Chemistry Laboratory if there are any questions. Chloride 102 98 - 107 mmol/L [facility] CO2 30 22 - 31 mmol/L [facility] Anion Gap 10 5 - 15 mmol/L [facility] Calcium 9.5 8.5 - 10.5 mg/dL [facility] Total Protein 7.4 6.1 - 8.0 gm/dL [facility] Albumin 4.0 3.2 - 5.2 gm/dL [facility] AST 31(H) 0 - 30 unit/L [facility] ALT 34(H) 0 - 30 unit/L [facility] Alk Phos 82 40 - 104 unit/L [facility] Total Bilirubin 0.3 0.2 - 1.3 mg/dL [facility] Bili, Direct 0.1 0.0 - 0.3 mg/dL [facility] Estimated GFR >60 >=60 [facility] Comment: This estimated GFR (eGFR) [...] the following links into your internet browser. [email or web address] Blood specimen (specimen) 01/02/2017 2:31 PM EDT 01/02/2017 2:36 PM EDT Narrative Resulting Agency Comment Spec In Lab Dayton Noble Mecchella II, DO CHEMISTRY ORDERA BLES Performing Organization Address City/State/[facility] Co de Phone Number [facility] [place] [address] documented in this encounter Visit Diagnoses Diagnosis Spondyloarthritis Spondylosis of unspecified site without mention of myelopathy Ankylosing spondylitis of cervical region Ankylosing spondylitis documented in this encounter Care Teams Retail Cashier Associate Relationship Specialty Start Date End Date Marcio Carranza MD [address] [place] [address] PCP - General 08/07/10 11/10/17 documented as of this encounter
--- OUTSIDE RECORDS SUMMARY | 2024-04-08 02:32 | XMS_ITS | Encounter Summary ---
[place] [address] Care Team Providers Care Pipe Smoking Machine Offbearer Name Role Phone Marcio Devlin DO Primary Care Provider [phone] Encounter Details Date Type Department Care Team (Latest Contact Info) Description 02/24/2018 2:30 PM EDT Laboratory [place]ment [place] [address] Uterovaginal prolapse, incomplete; Urinary, incontinence, stress female Social History Tobacco Use Types Packs/Day Years [...] EDT Hospital Encounter Non-Invasive [place] [address] Arrived 04/29/2024 9:50 AM EDT [place]ment [place] [phone] Luis Alfredo Velazquez MD [facility] [place] [address] 04/29/2024 9:50 AM EDT [place] [address] Luis Alfredo Velazquez MD [facility] [place] [address] 06/07/2024 2:30 PM EDT TH Visit (TeleHealth) Gastroenterology at [address] Dajuan Rachel MD [facility] [place] [address] 07/02/2024 2:00 PM EDT Appointment Non-Invasive Cardiology Lab [place] [phone] Luis Alfredo Velazquez MD [facility] [place] [address] 07/02/2024 4:40 PM EDT Office Visit Cardiology at [place] [phone] Luis Alfredo Velazquez MD [facility] [place] [address] documented as of this encounter Procedures Procedure Name Priority Date/Time Associated Diagnosis Comments ABORH RECHECK STATUS Routine 02/24/2018 3:03 PM EDT HEMOGRAM Routine 02/24/2018 3:03 PM EDT Uterovaginal prolapse, incomplete Urinary, incontinence, stress female DIFFERENTIAL, AUTOMATED Routine 02/24/2018 3:03 PM EDT Uterovaginal prolapse, incomplete Urinary, incontinence, stress female CREATININE Routine 02/24/2018 3:03 PM EDT Uterovaginal prolapse, incomplete Urinary, incontinence, stress female ABO/RH TYPING Routine 02/24/2018 3:03 PM EDT Uterovaginal prolapse, incomplete Urinary, incontinence, stress female CBC (WITH DIFF) Routine 02/24/2018 3:03 PM EDT Uterovaginal prolapse, incomplete Urinary, incontinence, stress female ANTIBODY SCREEN Routine 02/24/2018 3:03 PM EDT Uterovaginal prolapse, incomplete Urinary, incontinence, stress female TYPE AND SCREEN ([facility]/CGP/LILO) Routine 02/24/2018 3:03 PM EDT Uterovaginal prolapse, incomplete Urinary, incontinence, stress female COMPREHENSIVE METABOLIC PANEL (NON-FASTING) Routine 02/24/2018 3:03 PM EDT documented in this encounter Results * (ABNORMAL) Comprehensive metabolic panel (non-fasting) (02/24/2018 3:03 PM EDT) [facility] Glucose Lvl 89 65 - 199 mg/dL [facility] Comment:Diabetes: >=200 mg/d L plus symptoms BUN 20(H) 8 - 18 mg/dL [facility] Creatinine 0.92 0.70 - 1.20 mg/dL [facility] Sodium 146(H) 135 - 145 mmol/L [facility] Potassium 3.7 3.5 - 5.0 mmol/L [facility] Comment: Please note: ??Patients with WBC >100,000 may have falsely elevated Potassium levels. ??For accurate Potassium quantification in these patients send serum separator tube (gold top) for subsequent determinations. ??Contact the Clinical Chemistry Laboratory if there are any questions. Chloride 103 98 - 107 mmol/L [facility] CO2 29 22 - 31 mmol/L [facility] Anion Gap 14 5 - 15 mmol/L [facility] Calcium 9.9 8.5 - 10.5 mg/dL [facility] Total Protein 7.7 6.1 - 8.0 gm/dL [facility] Albumin 4.1 3.2 - 5.2 gm/dL [facility] AST 36(H) 0 - 30 unit/L [facility] ALT 48(H) 0 - 30 unit/L [facility] Alk Phos 91 40 - 104 unit/L [facility] Total Bilirubin 0.3 0.2 - 1.3 mg/dL [facility] Estimated GFR 70 >=60 mL/min/1. 73 m?? [facility] Comment: The eGFR was calculated using the CKD-EPI equation. As with all creatinine based estimates of kidney function, eGFR values calculated with the CKD-EPI equation are not accurate in patients with acute kidney failure, extremes of body mass or the acutely ill. http://[employer]/International Liars Poker Associationnkdep http://[employer]/[facility] MANGUMnkf eGFR 81 >=60 mL/min/1. 73 m?? [facility] Comment: The eGFR was calculated using the CKD-EPI equation. As with all creatinine based estimates of kidney function, eGFR values calculated with the CKD-EPI equation are not accurate in patients with acute kidney failure, extremes of body mass or the acutely ill. http://[employer]/International Liars Poker Associationnkdep http://[employer]/DHMCnkf Blood specimen (specimen) Venous Draw / Unknown 02/24/2018 3:03 PM EDT 02/24/2018 3:24 PM EDT Narrative Resulting Agency Comment Spec In Lab Nico Campbell DO CHEMISTRY ORDERABLES [facility] [place] [address] * ABORH Recheck Status (02/24/2018 3:03 PM EDT) ABORH Type Recheck Completed [facility] Blood specimen (specimen) 02/24/2018 3:03 PM EDT 02/24/2018 3:09 PM EDT Narrative Resulting Agency Comment Spec In Lab Liang Fong MD BLOOD BANK LAB ORDER EDUAR [facility] [place] [address] * (ABNORMAL) Differential, Automated (02/24/2018 3:03 PM EDT) Neutrophils % 46.4 % [facility] Neutr Abs (ANC) 4.08 1.70 - 6.10 x10(3)/[facility] LABORATORY Lymphocytes % 42.1 % [facility] Lymphocytes Abs 3.7(H) 0.9 - 3.2 x10(3)/[facility] LABORATORY Monocytes % 9.4 % [facility] Monocyte Abs 0.8 0.3 - 0.9 x10(3)/[facility] LABORATORY Eosinophils % 1.3 % [facility] Eosinophils Abs 0.1 0.0 - 0.4 x10(3)/[facility] LABORATORY Basophils % 0.3 % [facility] Basophils Abs 0.0 0.0 - 0.1 x10(3)/[facility] LABORATORY Immature Gran % 0.50 % [facility] Comment: Immature granulocytes(IG's)percentage and absolute count will include metamyelocytes, myelocytes, and promyelocytes. Blood smears from CBCs yielding IG's will be scanned manually for concordance. If this scan disagrees with the automated IG or if promyelocytes are noted, a manual differential will be performed. Melanie Gran Abs 0.04 0.00 - 0.04 x10(3)/[facility] LABORATORY Blood specimen (specimen) 02/24/2018 3:03 PM EDT 02/24/2018 3:15 PM EDT Narrative Resulting Agency Comment Spec In Lab Liang Fong MD HEMATOLOGY ORDERABLE S [facility] [place] [address] * (ABNORMAL) Hemogram (02/24/2018 3:03 PM EDT) [facility] WBC 8.8 4.0 - 9.5 x10(3)/[facility] LABORATORY RBC 5.01 4.00 - 5.21 x10(6)/[facility] LAB[facility] Hemoglobin 15.5 11.7 - 15.5 gm/dL [facility] Hematocrit 46.2(H) 35.7 - 45.8 % [facility] MCV 92.2 82.6 - 94.4 [facility] LABORATORY MCH 30.9 27.1 - 32.0 pg [facility] MCHC 33.5 31.7 - 35.0 gm/dL [facility] Platelets 204 145 - 357 x10(3)/[facility] LABORATORY RDWSD 43.5 37.0 - 46.0 [facility] LABORATORY RDWCV 12.9 11.5 - 14.1 % [facility] MPV 10.8 7.6 - 12.9 [facility] LABORATORY nRBC % Auto 0.0 % [facility] nRBC Abs Auto 0.000 0.000 - 0.000 x10(3)/[facility] LABOR[facility] Blood specimen (specimen) 02/24/2018 3:03 PM EDT 02/24/2018 3:15 PM EDT Narrative Resulting Agency Comment Spec In Lab Liang Fong MD HEMATOLOGY ORDERABLE S [facility] [place] [address] * Antibody screen (02/24/2018 3:03 PM EDT) Pathologist [facility] Ab Screen Interp Negative [facility] Expires at [id number] on: 03/13/2018 [facility] Comment:Corrected from 03/14 12:00 [Unknown] on 02/26/18 08:23 by Eric Lobo Blood specimen (specimen) 02/24/2018 3:03 PM EDT 02/24/2018 3:09 PM EDT Narrative Resulting Agency Comment Spec In Lab Liang Fong MD BLOOD BANK LAB ORDER EDUAR [facility] [place] [address] * ABO/Rh Typing (02/24/2018 3:03 PM EDT) ABORH Type AB Neg [facility] Blood specimen (specimen) 02/24/2018 3:03 PM EDT 02/24/2018 3:09 PM EDT Narrative Resulting Agency Comment Spec In Lab Liang Fong MD BLOOD BANK LAB ORDER EDUAR Performing Organization Address City/[facility]/ZIP Co de Phone Number [facility] [place] [address] * Creatinine (02/24/2018 3:03 PM EDT) Creatinine 0.92 0.70 - 1.20 mg/dL [facility] Estimated GFR 70 >=60 mL/min/1.7 3 m?? [facility] Comment: The eGFR was calculated using the CKD-EPI equation. As with all creatinine based estimates of kidney function, eGFR values calculated with the CKD-EPI equation are not accurate in patients with acute kidney failure, extremes of body mass or the acutely ill. http://[email or web address]/DHnkdep [email or web address]/DHMCnkf eGFR 81 >=60 mL/min/1.7 3 m?? [facility] Comment: The eGFR was calculated using the CKD-EPI equation. As with all creatinine based estimates of kidney function, eGFR values calculated with the CKD-EPI equation are not accurate in patients with acute kidney failure, extremes of body mass or the acutely ill. http://[employer]/DHnkdep [email or web address]://[employer]/DHMCnkf Blood specimen (specimen) 02/24/2018 3:03 PM EDT 02/24/2018 3:15 PM EDT Narrative Resulting Agency Comment Spec In Lab Liang Fong MD CHEMISTRY ORDERABLES Performing Organization Address City/State/[facility] Co de Phone Number [facility] [place] [address] documented in this encounter Visit Diagnoses Diagnosis Uterovaginal prolapse, incomplete Urinary, incontinence, stress female Female stress incontinence documented in this encounter Care Teams Pipe Smoking Machine Offbearer Relationship Specialty Start Date End Date Marcio Devlin DO [address] [place] [address] PCP - General Family Medicine 11/11/17 documented as of this encounter
--- OUTSIDE RECORDS SUMMARY | 2024-04-08 02:32 | XMS_ITS | Encounter Summary ---
Author Organization Formerly [facility], [facility] [place] [address] Care Team Providers Care Manager Garden Name Role Phone Marcio Carranza MD Primary Care Provider [phone] Encounter Details Date Type Department Care Team (Latest Contact Info) Description 03/04/2017 7:37 AM EDT - 03/04/2017 11:00 AM EDT Hospital [place] [phone] Raúl Austin MD [facility] [place] [address] Discharge Disposition: Home Social History Tobacco Use [...] to be checked. Friday-Friday Same Day Endo [phone]-[phone] Otherwise contact [phone] and ask to speak to the coal getter geothermal production manager Follow up care is a hernandez part [...] Austin MD - 03/04/2017 9:36 AM EDT [facility] [place] Patient Name: Kim Funes : [id number] MR#: [id number] Case Date: 03/04/2017 Surgeon: Surgeon(s) and Role: [...] AM EDT Hospital Encounter [place] [address] Arrived 04/29/2024 9:50 AM EDT Appointment MRI at [place] [address] Luis Alfredo Velazquez MD [facility] [place] [address] 04/29/2024 9:50 AM EDT Appointment MRI at [place] [address] Luis Alfredo Velazquez MD [facility] [place] [address] 06/07/2024 2:30 PM EDT TH Visit (TeleHealth) Gastroenterology at [place] [address] Dajuan Rachel MD [facility] [place] [address] 07/02/2024 2:00 PM EDT Appointment Non-Invasive Cardiology Lab [address] Luis Alfredo Velazquez MD [facility] [place] [address] 07/02/2024 4:40 PM EDT Office Visit Cardiology at [place] [phone] Luis Alfredo Velazquez MD [facility] [place] [address] (work) documented as of this encounter Procedures Procedure [...] (03/04/2017 11:01 AM EDT) FINAL DIAGNOSIS (AP) [id number] ?Location: 4T; EA09; A The signing pathologist [...] ng: (T1) ??sns 03/07/2017 4:22 PM EDT [facility] 03/04/2017 11:0 1 AM EDT Raúl Austin MD PATHOLOGY/CYTOLOGY O IRMA Performing Organization Address City/[facility]/[place] [address] * Specimen to Pathology (surgical or derm) (03/04/2017 9:39 AM EDT) AP Specimen 03/04/2017 9:39 AM EDT 03/04/2017 9:39 AM EDT Narrative [facility] - 03/04/2017 9:39 AM EDT Specimen requisition ordered. ??Separate Pathology report to follow Raúl Austin MD PATHOLOGY/CYTOLOGY O IRMA Performing Organization Address [facility] [place] [address] * Specimen to Pathology (surgical or derm) (03/04/2017 9:39 AM EDT) AP Specimen 03/04/2017 9:39 AM EDT 03/04/2017 9:39 AM EDT Narrative [facility] - 03/04/2017 9:39 AM EDT Specimen requisition ordered. ??Separate Pathology report to follow Raúl Austin MD PATHOLOGY/CYTOLOGY O IRMA Performing Organization Address [facility]/ZIP Co de Phone Number [facility] [place] [address] * Specimen to Pathology (surgical or derm) (03/04/2017 9:39 AM EDT) AP Specimen 03/04/2017 9:39 AM EDT 03/04/2017 9:39 AM EDT Narrative [facility] - 03/04/2017 9:39 AM EDT Specimen requisition ordered. ??Separate Pathology report to follow Raúl Austin MD PATHOLOGY/CYTOLOGY O IRMA Performing Organization Address City/[facility]/[place] [address] * Specimen to Pathology (surgical or derm) (03/04/2017 9:39 AM EDT) AP Specimen 03/04/2017 9:39 AM EDT 03/04/2017 9:39 AM EDT Narrative [facility] - 03/04/2017 9:39 AM EDT Specimen requisition ordered. ??Separate Pathology report to follow Raúl Austin MD PATHOLOGY/CYTOLOGY O RDSETH Performing Organization Address City/[facility]/[place] [address] * Specimen to Pathology (surgical or derm) (03/04/2017 9:39 AM EDT) AP Specimen 03/04/2017 9:39 AM EDT 03/04/2017 9:39 AM EDT Narrative [facility] - 03/04/2017 9:39 AM EDT Specimen requisition ordered. ??Separate Pathology report to follow Raúl Austin MD PATHOLOGY/CYTOLOGY O IRMA Performing Organization Address [facility] [place] [address] * Specimen to Pathology (surgical or derm) (03/04/2017 9:39 AM EDT) AP Specimen 03/04/2017 9:39 AM EDT 03/04/2017 9:39 AM EDT Narrative [facility] - 03/04/2017 9:39 AM EDT Specimen requisition ordered. ??Separate Pathology report to follow Raúl Austin MD PATHOLOGY/CYTOLOGY O RDERADARLEEN Performing Organization Address City/[facility] [place] [address] * COLONOSCOPY (03/04/2017 7:44 AM EDT) COLONOSCOPY [facility] Endoscopy Procedure Date: 03/04/2017 7:44 AM ? Patient Name: Kim Funes ? Date of : 1960 ? Age: 56 ? Order #: [id number] ? Instrument Name: [id number] ? Procedure: ? Colonoscopy Indications: ? High [...] preparation was evaluated using ? the BBPS ([place] Bowel Preparation ? Scale) with scores of: [...] Action Action Date Dose Rate Site lactated Ringers infusion 100 mL/hr, Intravenous, CONTINUOUS, Starting on Fri03/04/17 at 0815, Until Fri03/04/17 at 1004, Endoscopy (Day of Procedure) New Bag 03/04/2017 8:06 AM EDT 100 mL/hr 100 mL/hr documented in [...] RN) documented in this encounter Care Teams Manager Garden Relationship Specialty Start Date End Date Marcio Carranza MD [address] [place] [address] PCP - General 08/07/10 11/10/17 documented as of this encounter
--- OUTSIDE RECORDS SUMMARY | 2024-04-08 02:32 | XMS_ITS | Encounter Summary ---
Author Organization [place] [address] Care Team Providers Care Mill Stenciler Name Role Phone Marcio Devlin DO Primary Care Provider [phone] Encounter Details Date Type Department Care Team (Late st Contact Info) Description 02/24/2018 3:00 PM EDT [place] [address] Social History Tobacco Use Types [...] Taken Comments Blood Pressure - - Pulse 88 02/24/2018 2:16 PM EDT Temperature - - Respiratory Rate - - Oxygen Saturation 96% 02/24/2018 2:16 PM EDT Inhaled Oxygen Concentration - - Weight 90.8 kg (200 lb 3.2 oz) 02/24/2018 2:16 P M EDT Height 167.6 cm (5' 6) 02/24/2018 2:16 PM EDT Body Mass Index 32.31 02/24/2018 2:16 PM EDT documented in this encounter Plan of Treatment Upcoming Encounters Date Type Department Care Team (Late st Contact Info) Description 04/19/2024 10:00 AM EDT Hospital Encounter Non-Invasive [place] [phone] Arrived 04/29/2024 9:50 AM EDT Appointment MRI at [address] Luis Alfredo Velazquez MD [facility] [place] [address] 04/29/2024 9:50 AM EDT Appointment MRI at [place] [phone] Luis Alfredo Velazquez MD [facility] [place] [address] 06/07/2024 2:30 PM EDT TH Visit (TeleHealth) Gastroenterology at [place] [phone] Dajuan Rachel MD [facility] [place] [address] 07/02/2024 2:00 PM EDT Appointment Non-Invasive [place] [phone] Luis Alfredo Velazquez MD [facility] [place] [address] 07/02/2024 4:40 PM EDT Office Visit Cardiology at [address] [phone] Luis Alfredo Velazquez MD [facility] [place] [address] documented as of this encounter Visit Diagnoses Not on filedocumented in this encounter Care Teams Mill Stenciler Relationship Specialty Start Date End Date Marcio Devlin DO [address] [place] [address] PCP - General Family Medicine 11/11/17 documented as of this encounter
--- OUTSIDE RECORDS SUMMARY | 2024-04-08 02:32 | XMS_ITS | Encounter Summary ---
Author Organization [facility] Address [facility] [place] [address] Care Team Providers Care Accounts Payable Payroll Coordinator Name Role Phone Marcio Devlin DO Primary Care Provider [phone] Reason for Visit * Auth/Cert Specialty Diagnoses [...] Expiration Date Visits Re quested Visits Authorized [id number] 1 1 Encounter Details Date Type Department Care Team (Late st Contact Info) Description 03/10/2018 7:42 AM EDT Anesthesia Event [place] [phone] Waylon Power MD [facility] [place] [address] [place], CYBER DEFENSE ANALYST [address] [place] [address] Anesthesia Record Procedure Summary Procedure Name Responsible Anesthesiologist Anesthesia Start Time Anesthesia Stop Time HYSTERECTOMY, VAGINAL, REMOVAL TUBE(S) & OR OVARY(S) (WRVU 15.94) (Uterus) Waylon Power MD 03/10/18 0742 03/10/18 1125 Events Date Time Event Comment 03/10/2018 0728 0742 AN Verify 0742 Start 0742 An Start Data 0750 An Induction 0803 An Intubation 0810 Anesthesia Ready 0831 Break/Relief In Gracie K Star k, FOOD AND BEVERAGE COORDINATOR 0852 Break/Relief Out 1101 Extubation/LMA Out 1115 an stop data 1125 Recovery or ICU Handoff Lorena ent care was transferred to the destination unit staff after review of the patient's medical history, current anesthetic/surgical status and plan, according to the Provider Handoff Checklist. 1125 Stop Meds Name Total Midazolam 2 mg fentaNYL 150 mcg IV Lidocaine 100 mg Propofol 150 mg rocuronium (ZEMURON) 10 mg/mL multi-dose injection 30 mg ePHEDrine 30 mg Ondansetron 4 mg Neostigmine 2 mg Glycopyrrolate 0.4 mg clindamycin (CLEOCIN) 900mg in dextrose 5% 50mL 900 mg gentamicin (GARAMYCIN) 360 mg in sodium chloride 0.9% 109 mL 360 mg Propofol INF 929.68 mg Ketorolac 15 mg lactated Ringers infusion 1,000 mL 800 m L * Agents Name O2 Air N2O Sevoflurane (et) * Blood No blood administrations on file. Lines, Drains, and Airways Type Details Placement Removal Incision 03/10/18; vagina; 05/13/22 (LDA cleanup utility RA#[id number]); 1715 (LDA cleanup utility RA#[id number]) 03/10/18 0000 by Peyton Rodriguez RN 05/13/22 1715 by Margaux Bishop Urethral Catheter 03/10/18; Surgery lo nger than 2 hours; Physician order; indwelling double lumen catheter; latex, silicone coated; 14; inserted at this facility; 1; 10; 10; drainage bag to dependent drainage; 03/11/18; 0550 03/10/18 0000 by Peyton Rodriguez RN 03/11/18 0550 by Carmencita Waters, RN (RETIRED) Peripheral IV Line - Single Lumen 03/10/18; 0711; basilic vein (medial side of arm), left; [id number] catheter system; 20 gauge; Lorelei Mederos; distraction, intradermal injection; 0; 03/11/18; 0639 03/10/18 0711 by Luiz Mederos RN 03/11/18 0639 by Carmencita Waters RN ETT Mask Ventilation: Adjunct (2); ETT Type: Cuffed, Oral; ETT Size: 7 mm; Mac Blade: 4; Indirect: Video; Notes: Asleep, Pre-O2; Attempts: 2; Laryngoscopy Grade: 2; ETT Placement Verified By: Auscultation, Visual, Capnometry; Secured at Teeth: 19 cm; Inserted by: MD Clifford; Removal Date: 03/10/18; Removal Time: 1101 03/10/18 0803 by Alexis Horton MD 03/10/18 1101 by Alexis Horton MD documented in this encounter Social History Tobacco [...] OR Notes * Anesthesia Postprocedure Evaluation - Alexis Horton MD - 03/10/2018 11:35 AM EDT [facility] Department of Anesthesiology Post-procedure Note Patient: Kim Funes Procedure Summary Date Anesthesia Start Anesthesia Stop Room / Location 03/10/18 0742 1125 [facility] OR [facility] MAIN OR Procedure Diagnosis Surgeon Responsible Provider HYSTERECTOMY, VAGINAL, REMOVAL TUBE(S) & OR OVARY(S) (WRVU 15.94) (N/A Uterus); COLPORRHAPHY ANTERIOR-POSTERIOR; INC CYSTOURETHROSCOPY (WRVU 14.44) (N/A ); URETHRAL SUSPENSION, SLING\FASCIA OR SYNTHETIC (WRVU 12.13) (N/A Pelvis); COLPOPEXY, VAGINAL, INTRAPERITONEAL APPROACH (WRVU 11.66) (N/A ) (UTERINE PROLAPSE, STRESS URINARY INCONTINENCE) Liang Fong MD Kendall, Geoffrey L, MD All Anesthesia Providers: Anesthesiologist: Waylon Power MD Rail Transportation Operator: Alexis Horton MD Most Recent Vitals: 03/10/18 1315 BP: Pulse: Resp: Temp: SpO2: 97% Pain 3 (03/10/18 1340) Patient Location: PACU/[facility] Level of Consciousness: Conscious but Sleepy Pain Management: Satisfactory Analgesia PONV: None Cardiovascular Status: Hemodynamically Stable and At Baseline Respiratory Status: Supplemental O2 (NC or FM) Postoperative Fluid Status: Possible Anesthetic Complications: NONE apparent at time of evaluation Final Primary Anesthesia Type: General (The anesthetic type performed was the same as planned.) Comments: * Anesthesia Preprocedure Evaluation - Alexis Horton MD - 02/24/2018 3:40 PM EDT Images from the original note were not included. Pre-Anesthesia Evaluation for: Kim Funes a 57 y.o. female. Procedure(s): HYSTERECTOMY, VAGINAL, REMOVAL TUBE(S) & OR OVARY(S) (WRVU 15.94) LAPAROSCOPY, UTEROSACRAL LIGAMENT SUSPENSION\UNLISTED (WRVU 5.56) COLPORRHAPHY ANTERIOR-POSTERIOR; INC CYSTOURETHROSCOPY (WRVU 14.44) LAPAROSCOPY, SURGICAL, SLING OPERATION FOR STRESS INCONTINENCE (WRVU 14.87) Patient Active Problem List Diagnosis ??? Obesity (BMI 30.0-34.9) ??? History of migraine headaches Markedly improved with metoprolol. ??? Mild asthma ??? Type 2 diabetes mellitus without complication, without long-term current use of insulin ??? MÉNDEZ (nonalcoholic steatohepatitis) ??? Lipid disorder ??? Ankylosing spondylitis Spondylitis and ulcerative colitis. ??? Hypertension ??? GERD (gastroesophageal reflux disease) ??? Ulcerative colitis ??? diagnosed in 1993 with L-sided disease ??? Treated with sulfasalazine 3 g PO qd ??? Colonoscopy 2001 - mild L sided disease ??? last colonoscopy 09/19/08 (Dr. Shady Luz at [facility]) for surveillance for dysplasia. Areas of skip [...] also history of iritis ??? DIFFICULT AIRWAY As described in 2006 anesthesia record in [facility]. Past Medical History: Diagnosis Date ??? Ankylosing spondylitis 02/21/2011 ??? Hepatitis ??? Hypertension ??? Mild asthma 02/24/2018 ??? Type 2 diabetes mellitus without complication, without long-term current use of insulin 02/24/2018 Past Surgical History: Procedure Laterality Date ??? [...] WITH BX performed by YAQUELIN ESTRADA at [facility] ENDOSCOPY ??? PRO COLONOSCOPY, BIOPSY N/A 03/04/2017 COLONOSCOPY FLEXIBLE, WITH BX (WRVU 3.66) performed by Raúl Austin MD at [facility] ENDOSCOPY ??? PRO COLONOSCOPY, REMV LESN, SNARE 01/02/2011 COLONOSCOPY, POLYPECTOMY, REMOVAL LESION BY SNARE performed by YAQUELIN ESTRADA at [facility] ENDOSCOPY ??? PRO COLONOSCOPY, REMV LESN, SNARE N/A 03/04/2017 COLONOSCOPY, POLYPECTOMY, REMOVAL LESION BY SNARE (WRVU 4.67) performed by Raúl Austin MD at [facility] ENDOSCOPY ??? SALPINGECTOMY Social History Substance Use Topics ??? Smoking status: Never Smoker ??? Smokeless tobacco: Never Used ??? Alcohol use No History Drug Use No Allergies Allergen Reactions ??? Lodine [Etodolac] Itching ??? Amoxicillin-Pot Clavulanate Nausea And Vomiting Nausea/Vomiting, patient reported ??? Celebrex [Celecoxib] Rash ??? Cephalexin Nausea And Vomiting Nausea/Vomiting, Patient reported ??? Doxycycline Nausea And Vomiting Nausea/Vomiting, Patient reported ??? Ibuprofen chest pains, Patient reported Medications: MAR and/or home medications have been reviewed. Physical Exam: There were no vitals filed for this visit. There is no height or weight on file to calculate BMI. Airway Assessment: Mallampati: II TM distance: >3 FB Neck ROM: limited Essentially no cervical extension. Cardiovascular Assessment: Rhythm: regular Rate: normal (-) peripheral edema Pulmonary Assessment: breath sounds clear to auscultation PE comment: O2 sat 96% on RA. No cough or conversational dyspnea. Dental Assessment: Comment: Denies loose/chipped teeth. Misc Assessment: Other exam findings: Alert, pleasant, cognition intact, soft-spoken. Anesthesia Plan: ASA 2 general, with a(n) intravenous induction 57 y.o. female with stress urinary incontinence presenting for vaginal hysterectomy with sling placement. PMH significant for ulcerative colitis-associated ankylosing spondylitis (w/ C2- C4, b/l SI joint ankylosis), HTN, GERD, asthma, MÉNDEZ, DM2, migraines. Relevant medications: Metoprolol, losartan, HCTZ, fluticasone and albuterol inhalers, metformin, omeprazole. On Humira and sulfasalazine for ankylosing spondylitis. Anesthetic hx: Difficult airway as below. Otherwise no problems. Airway hx: In 2005, had ROSS with lumbar plexus block, then patient appeared to want GA, was found to be grade IV view with both Luna 2, Mac 3, and was ultimately intubated through LMA. Documented at that time as easy mask. Exercise tolerance: Able to achieve greater than 4 METs. ROS: Denies chest pain, SOB, chest pain, reflux symptoms (on omeprazole). EKG: n/a ECHO: n/a Lab Results Component Value Date HGB 15.5 02/24/2018 PLATELET 204 02/24/2018 NA 146 (H) 02/24/2018 K 3.7 02/24/2018 CREATININE 0.92 02/24/2018 CREATININE 0.92 02/24/2018 02/24/18 1503 ABORH AB Neg Labs remarkable for slight elevation in LFTs. Allergies: -- Lodine (Etodolac) -- Itching -- Amoxicillin-Pot Clavulanate -- Nausea And Vomiting -- Nausea/Vomiting, patient reported -- Celebrex (Celecoxib) -- Rash -- Cephalexin -- Nausea And Vomiting -- Nausea/Vomiting, Patient reported -- Doxycycline -- Nausea And Vomiting -- Nausea/Vomiting, Patient reported -- Ibuprofen -- chest pains, Patient reported NPO Status: Appropriate Anesthetic Plan: GA with ETT, standard ASA monitors, PIV. C-mac and fiberoptic equipment in room. Due to being reported as an easy mask, and reassuring exam which appears to confirm this, we will proceed with a normal asleep intubation. Risks of being a difficult airway discussed with patient. We discussed that she was at increased risk of either having procedure aborted due to failure to intubate safely, or having to proceed with surgical airway due to being unable to ventilate/intubate. She reported understanding the risks, and agreed to proceed with attempting a normal induction with ETT tube placement. Informed Consent: Anesthetic plan and risks discussed with patient. Use of blood products discussed with patient who consented to blood products. Plan discussed with resident and attending. [facility] Staff Documentation: Reason for PAT Contact: Surgeon Request Hx of Anesthesia Problem: Difficult intubation 2005; no anesthesia since. Was Patient Seen in [facility]? Yes Additional/Outside Data Requested? No Findings, Assessment and Action: Ms. Funes is a 57 y.o. year old female seen in [facility] prior to planned vaginal hysterectomy/lap sling with Dr. Liang Fong. She is accompanied by her . Pre-op questionnaire was reviewed. Notable responses include: Problem with breathing tube; denies cardiac conditions; able to lie flat; can ascend 1 FOS/walk 2 blocks without stopping; lung problem; HTN; GERD; liver problem; DM; has seen a pain specialist, not on opioids. Pertinent PMH includes: Ankylosing spondylitis (followed by Rheumatology); GERD (PPI); HTN (treated); asthma (Flovent); obesity (BMI 32). ROS: Denies chest discomfort, palpitations, syncope, orthopnea, lower extremity edema. Denies SOB, cough, wheezing. Asthma flares only with exposure to cold air. No recent albuterol use. GERD sx well-managed with PPI. Exercise tolerance is moderate. 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 Anesthesia record 03/17/06 ([facility]): EZ FM; Gr 4 view with Luna 2 and Mac 3; successful with #3 intubating LMA; suggestion made for awake FOB, nasal, or glidescope intubation in the future. Dr. Contreras, who met with and examined Ms. Funes, did not feel awake FOB would be necessary. I assured her that she would have the opportunity to speak with her anesthesiologist the morning ofthe surgery regarding the specific plan for anesthesia. I will alert the floor clerk of her hx of difficult airway so preparations can be in place ahead of her surgery. [place], SKIP Pre-Admission Testing [phone] documented in this encounter Plan of Treatment Upcoming Encounters Date Type Department Care Team (Late st Contact Info) Description 04/19/2024 10:00 AM EDT Hospital Encounter Non-[place] [phone] Arrived 04/29/2024 9:50 AM EDT Appointment [place] [phone] Luis Alfredo Velazquez MD [facility] [place] [address] 04/29/2024 9:50 AM EDT Appointment [place] [phone] Luis Alfredo Velazquez MD [facility] [place] [address] 06/07/2024 2:30 PM EDT TH Visit (TeleHealth) [place] [phone] Dajuan Rachel MD [facility] [place] [address] 07/02/2024 2:00 PM EDT Appointment Non-[place] [phone] Luis Alfredo Velazquez MD [facility] [place] [address] 07/02/2024 4:40 PM EDT Office Visit Cardiology at [address] [phone] Luis Alfredo Velazquez MD [facility] [place] [address] documented as of this encounter Visit Diagnoses Not on filedocumented in this encounter Administered Medications Inactive Administered Medications - up to 3 most recent administrations Medication Order MAR Action Action Date Dose Rate Site clindamycin (CLEOCIN) 900mg in dextrose 5% 50mL 900 mg, Intravenous, ONCE, 1 dose, On Fri03/10/18 at 0645, Administer over 30 Minutes, Give over 30-60 minutes. Do not exceed 30mg/minute. Redose every 6 hours if CrCl is greater than 20. Redose every 6 hours if CrCl is less than 20., Day of Surgery (Day of Procedure), Indication for (Active or Suspected): Prophylaxis Given 03/10/2018 8:10 AM EDT 900 mg ePHEDrine 5 mg/mL multi-dose injection PRN, Starting on Fri03/10/18 at 0921, Until Fri03/10/18 at 1127, Anesthesia Intra-op, Routine Given 03/10/2018 9:44 AM EDT 10 mg Given 03/10/2018 9:39 AM EDT 10 mg Given 03/10/2018 9:21 AM EDT 10 mg fentaNYL 50 mcg/mL multi-dose injection PRN, Starting on Fri03/10/18 at 0842, Until Fri03/10/18 at 1127, Pain, Anesthesia Intra-op, Routine Given 03/10/2018 11:05 AM EDT 50 mcg Given 03/10/2018 10:05 AM EDT 50 mcg Given 03/10/2018 8:42 AM EDT 50 mcg gentamicin (GARAMYCIN) 360 mg in sodium chloride 0.9% 109 mL 360 mg, Intravenous, ONCE, 1 dose, On Fri03/10/18 at 0645, Administer over 60 Minutes, Consider alternative if CrCl is less than 20 or between 20-50., Day of Surgery (Day of Procedure), Indication for (Active or Suspected): Prophylaxis Given 03/10/2018 8:10 AM EDT 360 mg glycopyrrolate (ROBINUL) multi-dose injection PRN, Starting on Fri03/10/18 at 1045, Until Fri03/10/18 at 1127, Anesthesia Intra-op, Routine Given 03/10/2018 10:45 AM EDT 0.4 mg ketorolac (TORADOL) injection PRN, Starting on Fri03/10/18 at 1050, Until Fri03/10/18 at 1127, Pain, Anesthesia Intra-op, Routine Given 03/10/2018 10:50 AM EDT 15 mg lactated Ringers infusion 1,000 mL 1,000 mL, at 100 mL/hr, Intravenous, CONTINUOUS, Starting on Fri03/10/18 at 1145, Until Fri03/11/18 at 0616 New Bag 03/10/2018 6:41 PM EDT 1,000 mLs 100 m L/hr New Bag 03/10/2018 11:37 AM EDT 1,000 mLs 100 mL/hr New Bag 03/10/2018 7:42 AM EDT lidocaine (PF) (XYLOCAINE) 100 mg/5 mL (2 %) injection PRN, Starting on Fri03/10/18 at 0745, Until Fri03/10/18 at 1127, Anesthesia Intra-op, Routine Given 03/10/2018 7:45 AM EDT 100 mg midazolam (PF) (VERSED) 1 mg/mL multi-dose injection PRN, Starting on Fri03/10/18 at 0742, Until Fri03/10/18 at 1127, Sleep, Anesthesia Intra-op, Routine Given 03/10/2018 7:42 AM EDT 2 mg neostigmine (BLOXIVERZ) injection PRN, Starting on Fri03/10/18 at 1045, Until Fri03/10/18 at 1127, Anesthesia Intra-op, Routine Given 03/10/2018 10:45 AM EDT 2 mg ondansetron (ZOFRAN) injection PRN, Starting on Fri03/10/18 at 1050, Until Fri03/10/18 at 1127, Nausea, Anesthesia Intra-op, Routine Given 03/10/2018 10:50 AM EDT 4 mg propofol (DIPRIVAN) 10 mg/mL bolus injection (Anesthesia) PRN, Starting on Fri03/10/18 at 0759, Until Fri03/10/18 at 1127, Anesthesia Intra-op Given 03/10/2018 9:35 AM EDT 50 mg Given 03/10/2018 7:59 AM EDT 50 mg Given 03/10/2018 7:50 AM EDT 50 mg propofol (DIPRIVAN) infusion CONTINUOUS PRN, Starting on Fri03/10/18 at 0750, Until Fri03/10/18 at 1127, Anesthesia Intra-op, Routine Rate/Dose Change 03/10/2018 8:15 AM EDT 50 mcg/kg/min 27.2 mL/hr New Bag 03/10/2018 7:50 AM EDT 100 mcg/kg/min 54.4 mL/h r rocuronium (ZEMURON) multi-dose injection PRN, Starting on Fri03/10/18 at 0800, Until Fri03/10/18 at 1127, Anesthesia Intra-op, Routine Given 03/10/2018 8:00 AM EDT 30 mg documented in this encounter Care Teams Accounts Payable Payroll Coordinator Relationship Specialty Start Date End Date Marcio Devlin DO [address] [place] [address] PCP - General Family Medicine 11/11/17 documented as of this encounter
--- OUTSIDE RECORDS SUMMARY | 2024-04-08 02:32 | XMS_ITS | Encounter Summary ---
Author Organization [facility] Address [facility] [place] [address] Care Team Providers Care Tieing Machine Operator Name Role Phone Marcio Devlin DO Primary Care Provider Reason for Visit * Reason Comments Establish Care * Consultation (Routine) - Closed Specialty Diagnoses / Procedures Referred By Missy escalera Referred To Contact Obstetrics and Gynecology Diagnoses Urethral caruncle, Stress urinary incontinence Franki Hancock MD [address] [place] [address] [facility] Support Officer [address] [place] [address] Referral ID Status Reason Start Date Expiration Date Visits Re quested Visits Authorized [id number] Closed 09/02/2017 09/02/2018 1 1 Encounter Details Date Type Department Care Team (Late st Contact Info) Description 02/20/2018 3:00 PM EDT Office Visit Obstetrics [place] [address] Liang Fong MD [facility] [address] Uterovaginal prolapse, incomplete (Primary Dx); Urinary, incontinence, stress female Social History Tobacco [...] Sign Reading Time Taken Comments Blood Pressure 116/68 02/20/2018 2:48 PM EDT Pulse 77 02/20/2018 2:48 PM EDT Temperature 36.7 ??C (98.1 ??F) 02/20/2018 2:48 PM ED T Respiratory Rate - - Oxygen Saturation 100% 02/20/2018 2:48 PM EDT Inhaled Oxygen Concentration - - Weight 90.1 kg (198 lb 11.2 oz) 02/20/2018 2:48 PM EDT Height 167.6 cm (5' 6) 02/20/2018 2:48 PM EDT Body Mass Index 32.07 02/20/2018 2:48 PM EDT documented in this encounter Patient Instructions * Patient Instructions* Liang Fong MD - 02/20/2018 3:00 PM EDT .Division of Female Pelvic Medicine and Reconstructive Surgery A Division of the Department of Obstetrics & Gynecology Date of Surgery: Late February/early March Planned Surgery: Vaginal hysterectomy, uterosacral vaginal vault suspension, anterior/posterior repair, mid-urethral sling, cystoscopy Before surgery ??? Many patients are now able to go home the day of surgery but some patients need to stay overnight. You should plan to have a family member or a friend available to drive you home, both the day ofsurgery and the day after surgery. Rarely, you may need to stay longer if your doctor determines you are not ready for discharge. ??? Depending on the type of surgery that you will be having, some women will experience difficultyvoiding for 1-2 days after surgery. Occasionally, this can last for up to 6 weeks after surgery. Options for emptying the bladder if you are unable to yourself include self catheterization, placing aurethral catheter to a bag or less commonly, suprapubic bladder catheterization. The choice among these varies with surgeons however if you have a strong preference you should make this known. ??? Avoid aspirin, NSAIDS (ibuprofen, Aleve, Motrin, Advil and others), Ginko biloba, garlic pills,other herbal products and Vitamin E for 10 days prior to surgery. ??? You should try to avoid heavy foods the day before surgery. ??? The day before surgery (or if your surgery is scheduled for a Friday - the Friday before surgery) the same day program will call you to let you know what time to come into hospital. ??? Do not eat anything after midnight the night before surgery. ??? You may have clear liquids up to 2 hours prior to your surgery time. Clear liquids include any liquid you can see through, but avoid adding milk or cream to liquids. If you drink non-clear liquids, this could lead to postponing your surgery to another day. On the day of surgery ??? Bring loose fitting comfortable clothes to wear home. ??? You will be asked to report to Same Day Surgery ??? An IV will be started and you will often be given antibiotics. ??? You will meet with the anesthesiologist who will guide you in choosing your type of anesthesia. ??? After surgery you will be taken to the recovery area. You will have a catheter in your bladder and sometimes cotton gauze (vaginal packing) in your vagina ??? You will be given IV or oral pain medications; often these pain medications will be delivered according to your demand ??? If you are nauseated please ask for medication to prevent vomiting, you should also delay eating until you are hungry and feel you can tolerate something orally Hospital discharge ??? As long as your vital signs (temperature, blood pressure) are stable, you can go home once you are able to drink clear fluids, eat a regular diet, and walk short distances ??? If you cannot tolerate oral pain medications, have trouble walking short distances, are unable to keep down pain medications, you may need to be observed overnight ??? You will be given prescriptions for oral pain medication Once you are home ??? You should be able to resume your usual activities of daily living (eating, drinking, washing and walking) ??? You can walk or climb stairs as long as you are not straining ??? You should avoid more vigorous exercise for at least 6 weeks ??? Complete recovery may take 3-6 weeks, and sometimes longer ??? It is very important to avoid lifting more than 8 pounds (a gallon of milk) for 6 weeks ??? You may take a shower anytime ??? Do not soak in a tub for 2 weeks, this may cause your stitches to dissolve too early ??? Do not douche ??? Do not use tampons or have vaginal intercourse for 6 weeks ??? Most women will experience light vaginal bleeding and discharge after surgery. You will want amos certain to have some menstrual type pads at home. ??? Some women will experience constipation post operatively, it is important to be sure to take a stool softener and fiber supplement after surgery until you are having regular, soft bowel movements. Please call us if you have not had a bowel movement after 5 days. It is important to try to avoid straining with a bowel movement. ??? You should avoid driving for 1-2 weeks. Call If you have any signs or symptoms of infection: ??? Fever over 101 F, chills, nausea, vomiting, diarrhea, intolerance of food or drink ??? Urinary frequency, urgency, or feeling incomplete emptying of the bladder. ??? If your wound is red, hot, swollen, tender, or draining yellow/green fluid. Be certain to call if you have any questions or concerns. Contact information documented in this encounter Progress Notes * Liang Fong MD - 02/20/2018 3:00 PM EDT Female Pelvic Medicine and Reconstructive Surgery @ [facility] Patient Name: Kim Funes Patient Primary Care Provider: Marcio Devlin, DO Patient Active Problem List Diagnosis Code ??? Ulcerative colitis K51.90 ??? DIFFICULT AIRWAY T88.4XXA ??? MÉNDEZ (nonalcoholic steatohepatitis) K75.81 ??? Lipid disorder E78.9 ??? Ankylosing spondylitis M45.9 ??? Hypertension I10 ??? GERD (gastroesophageal reflux disease) K21.9 Chief Complaint: RADHA, POP History of Present Illness: Ms. Funes is a 57 y.o. old para 1 woman, seen at the kind request of Dr. Franki Hancock. She presents for evaluation and assessment of RADHA and uterine prolapse of 1 year's duration. She used to only leak with exertion but now with any activity. She was seen by Dr. Hancock who diagnosed both plus a urethral caruncle and discussed a surgical repair. However, there was a concern her airway would be difficult secondary to snk spond so was referred [facility] [place] to evaluate. 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 Goals for this visit 1. Discuss surgery Urinary tract history Patient reports history of recurrent urinary tract infection - x1/year Patient denies history of pyelonephritis. Patient denies history of urinary tract abnormality. Patient denies history of nephrolithiasis. Patient denies history of hematuria. Bladder irritants: Fluid intake: x5 20oz water jugs a day Caffeine intake: None Cigarette smoking (packs, time, if quit when): no Alcohol: no Bladder Function Urinary incontinence: yes No. episodes: x2-3/day Pad use (per day): x1 Pad type: liners Daytime voids: q3 hour Nocturia: x2 Previous urinary incontinence treatment (Medical/Behavioral/Surgical): no Storage symptoms Urinary frequency Nocturia x Stress urinary incontinence - leakage with exertion, cough/sneeze Urge urinary incontinence - leakage preceded immediately by urge to void Noctural enuresis - NOT IN ASSOCIATION WITH URGE Continuous urinary leakage Other: (e,g. giggle, intercourse-related) Bladder sensation x Normal - aware of filling and increased sensation up to desire to void Increased - feels an early and persistent need to void Reduced - aware of filling but NOT definite desire to void Absent - NO sensation of filling or need to void Non-specific - No specific bladder symptoms during filling or void Voiding symptoms None Slow stream x Spraying Intermittent stream - stop/start on > 1 occasion during void Straining - muscular effort to initiate, maintain OR improve stream Terminal dribble - prolonged final part of void Feeling of incomplete emptying Pelvic Organ Prolapse (POP) Any personally see or feel a vaginal bulge? yes What precipitates prolapse or symptoms of prolapse? Walking, working, lifting Previous treatment for POP (physical therapy, pessary, surgery)?: no Bowel Function Fecal incontinence (yes/no): no Number of fecal incontinent episodes (day/week): n/a Number of bowel movements (day/week): X3/day, normal consistency Defecatory Dysfunction: Symptom Presence Symptom Presence NONE x Incomplete Emptying Straining Infrequent stools (<3 week) Splinting Abdominal discomfort Loose stools Defecatory urgency Hard stools Other Sexual Function Active?: no Desire to retain sexual function? yes Past Medical History: Diagnosis Date ??? Ankylosing spondylitis 02/21/2011 ??? Hepatitis ??? Hypertension Past Surgical History: Procedure Laterality Date ??? [...] WITH BX performed by YAQUELIN ESTRADA at [facility] ??? PRO COLONOSCOPY, BIOPSY N/A 03/04/2017 COLONOSCOPY FLEXIBLE, WITH BX (WRVU 3.66) performed by Raúl Austin MD at [facility] ??? PRO COLONOSCOPY, REMV LESN, SNARE 01/02/2011 COLONOSCOPY, POLYPECTOMY, REMOVAL LESION BY SNARE performed by YAQUELIN ESTRADA at [facility] ??? PRO COLONOSCOPY, REMV LESN, SNARE N/A 03/04/2017 COLONOSCOPY, POLYPECTOMY, REMOVAL LESION BY SNARE (WRVU 4.67) performed by Raúl Austin MD at [facility] ??? SALPINGECTOMY Obstetric History T1 L0 SAB0 TAB0 Ectopic0 Multiple0 Live Births0 # Outcome Date GA Lbr Harley/2nd Weight Sex Delivery Anes PTL Lv 1 Term Outpatient Prescriptions Marked as Taking for the 02/20/18 encounter (Office Visit) with Liang Fong MD Medication Sig Dispense Refill ??? aspirin 81 mg Tablet, Delayed Release (E.C.) Take 81 mg by mouth daily. ??? Adalimumab (HUMIRA PEN) 40 mg/0.8 mL Pen Injector Kit Inject 0.8 mLs subcutaneously every 14 days. 4 kit 5 ??? SUMAtriptan (IMITREX) 20 mg/actuation Belcher, Non-Aerosol 1 spray as needed. ??? ferrous sulfate (IRON) 325 mg (65 mg iron) Tablet Take 325 mg by mouth daily. ??? fish oil-omega-3 fatty acids 1,000 mg Capsule Take 1 g by mouth daily. ??? metFORMIN (GLUCOPHAGE) 500 mg Tablet Take 500 mg by mouth 2 times daily. 3 ??? hydrochlorothiazide (HYDRODIURIL) 12.5 mg Tablet Take 12.5 mg by mouth daily. ??? simvastatin (ZOCOR) 10 mg Tablet Take 10 mg by mouth nightly. ??? losartan (COZAAR) 50 mg Tablet Take 50 mg by mouth daily. ??? METOPROLOL SUCCINATE ORAL Take 100 mg by mouth daily. ??? ursodiol (ACTIGALL) [...] 400 unit capsule 800UNIT, PO, Once daily Allergies Allergen Reactions ??? Lodine [Etodolac] Itching ??? Amoxicillin-Pot Clavulanate Nausea And Vomiting Nausea/Vomiting, patient reported ??? Celebrex [Celecoxib] Rash ??? Cephalexin Nausea And Vomiting Nausea/Vomiting, Patient reported ??? Doxycycline Nausea And Vomiting Nausea/Vomiting, Patient reported ??? Ibuprofen chest pains, Patient reported Social History Social History ??? Marital status: Spouse name: N/A ??? Number of children: N/A ??? Years of education: N/A Occupational History ??? Not on file. Social History Main Topics ??? Smoking status: Never Smoker ??? Smokeless tobacco: Never Used ??? Alcohol use No ??? Drug use: No ??? Sexual activity: Not Currently Other Topics Concern ??? Not on file Social History Narrative Family History Problem Relation Age of Onset ??? Hypertension Mother ??? Heart Disease Mother ??? Diabetes Mother ??? Heart Disease Father ??? Cancer Father Lung Family history: denies history of gynecologic cancer ROS: Review of all other systems negative except for those mentioned above or indicated below: System Symptom Presence Constitutional Weight Loss Weight gain Eyes History of glaucoma ENT/Mouth Mouth sores/Dry mouth Cardiovascular Chest pain Leg swelling Respiratory Wheezing SOB GI Nausea/vomiting Abdominal pain Skin/Breast Breast masses Rash/ulcer Musculoskeletal Muscle weakness Trouble Walking Neurological Dizziness/falling Numbness Psychiatric Depression Anxiety Endocrine Abnormal thirst Hot flashes Hematologic Frequent bruising History of blood transfusions Blood clots (DVT / PE) Prior problems w/ anesthesia intubation Outside medical records reviewed: yes Data reviewed (images/urodynamic studies): To further delineate patient's urinary symptoms, a urinedip test and postvoid residual via bladder scanner were obtained. PVR 60cc OBJECTIVE: BP 116/68 Pulse 77 Temp 36.7 ??C (98.1 ??F) (Oral) Ht 167.6 cm (5' 6) Wt 90.1 kg (198 lb 11.2 oz) SpO2 100% BMI 32.07 kg/m2 General: normal appearing female, pleasant mood, normal speech Skin: skin of abdomen/pelvis normal with normal sensation Respiratory: clear to auscultation bilaterally Neuro: no paraspinous tenderness; saddle sensory function (S2-4) intact in the pelvic area to touch Cardiac: regular rate and rhythm, no appreciated murmurs Gastrointestinal: no palpable masses/organomegaly, soft/nontender, no appreciable hernia Musculoskeletal: levator ani tone (0-5): 2, levator ani contraction (0-5): 3, no levator tenderness; lower extremity motor 5/5 bilaterally Pelvic: Cough stress test (empty supine): POSITIVE External Genitalia: Vulva, Revere's and Bartholin glands normal, urethra without tenderness or mass Vagina: With Valsalva, the anterior vaginal wall comes to the hymen, the posterior vagina wall comes -2 cm above the hymen, and the cervix/apex comes >2cm beyond the hymen Atrophic epithelium (yes/no)?: no Discharge?: no Cervix: normal Bimanual (uterus/adnexa): normal Rectovaginal: Enterocele: no Rectocele: no Anal sphincter: Resting tone: 4/5 Anal wink: present External anal sphincter: intact POP Q Measurements: Aa +1 Ba +2 C +2 GH 4, 5 PB 2, 3 TVL 9 Ap -2 Bp +2 D -6 Impression: Ms. Funes is a .57 y.o. woman with stage 2 POP with uterovaginal and anterior vaginal wall involvement plus RADHA The following surgical options were reviewed with the patient for treatment of her uterovaginal prolapse: 1. Vaginal hysterectomy with jackson ligament (uterosacral or sacrospinous) repair, with 70-80% success at 5 years out from surgery. 2. Vaginal hysterectomy with laparoscopic mesh sacral colpopexy, with 90% success at 5 years out from surgery, but increased risks for complications of bowel obstruction, mesh erosion and longer anesthetic time. For her stress urinary incontinence We discussed the options of expectant management, pelvic floor muscle exercises, pelvic floor physical therapy, and surgery for treatment of stress urinary incontinence. We also discussed the use of a large tampon with exercise or an incontinence dish pessary to reduce urine leakage. We discussed the surgery for stress urinary incontinence would involve a sling being placed at the level of the midurethra with permanent mesh materia We reviewed risks of mesh erosion / extrusion for a sling are 3.3% in a very large series recently published. We discussed the June 2008 and March 2011 FDA warning regarding mesh placed transvaginally for prolapse repairs and the different applications for mesh in the pelvic area carry different risks. We discussed that the risks of slings is felt to be very low in comparison to trans-vaginal mesh repairs for prolapse. We discussed the recent AUGS / SUFU paper on the safety of slings. Recommendations: Based on the patients expressed goals for management I have recommended the followin. Vaginal hysterectomy, uterosacral vaginal vault suspension, anterior/posterior repair, mid-urethral sling, cystoscopy 2. Have made appt with Anesthesia prior to OR day to assess airway and prepare for intubation Surgery for RADHA and Pelvic floor disorders informational pamphlets given to patient Date of Visit: 02/20/2018 Planned Surgery Date: february/march Planned Procedure: TVH, USLS, anterior repair, MUS Indications/Pre-op Diagnosis: UV prolapse, RADHA PLAN: ??? We will proceed with the above procedures on late February/march. ??? Anesthesia preference: per anesthesia ??? Medications and herbal preparations reviewed - take Metoprolol, HCTZ and Losartan but hold Metformin and Statin Discussed: Discontinuation of all herbal preparations, vitamin E 7-10 days preop ASA, NSAIDS, Plavix Hormones ?? (x) Discontinue Solid foods and drink at midnight Consent: signed Acute Opioid Therapy Informed Consent signed ACUTE OPIOID CONSENT AND RISK ASSESSMENT: Opioid Risk Tool Female Male 1. Family history of Substance Abuse Alcohol [] 1 [] 3 Illegal Drugs [] 2 [] 3 Prescription Drugs [] 4 [] 4 2. Personal History of Substance Abuse Alcohol [] 3 [] 3 Illegal Drugs [] 4 [] 4 Prescription Drugs [] 5 [] 5 3. Age (prince box if 16-45) [] 1 [] 1 4. History of Preadolescent Sexual Abuse [] 3 [] 0 5. Psychological Disease Attention Deficit Disorder, Obsessive Compulsive D/o, Bipolar, Schizophrenia [] 2 [] 2 Depression [] 1 [] 1 TOTAL: Opioid Risk Category: low risk 0-3 Comments about ORT in relation to this patient: I discussed the plan for acute post-operative pain management with the patient, including the use of non-narcotic medications, heat, and supportive measures. The patient did sign the [facility] acute narcotic consent form in anticipation of typical post-operative opioid therapy for approximately 7 days. Liang Fong MD Division of Female Pelvic Medicine/Reconstructive Surgery CC: DO Franki Booth documented in this encounter Plan of Treatment Upcoming Encounters Date Type Department Care Team (Late st Contact Info) Description 04/19/2024 10:00 AM EDT Hospital Encounter [place] [address] Arrived 04/29/2024 9:50 AM EDT Appointment MRI at [place] [phone] Luis Alfredo Velazquez MD [facility] [place] [address] 04/29/2024 9:50 AM EDT Appointment MRI at [place] [address] Luis Alfredo Velazquez MD [facility] [place] [address] 06/07/2024 2:30 PM EDT TH Visit (TeleHealth) Gastroenterology at [place] [phone] Dajuan Rachel MD [facility] [place] [address] 07/02/2024 2:00 PM EDT Appointment Non-[place] [phone] Luis Alfredo Velazquez MD [facility] [place] [address] 07/02/2024 4:40 PM EDT Office Visit Cardiology at [address] [phone] Luis Alfredo Velazquez MD [facility] [place] [address] documented as of this encounter Visit Diagnoses Diagnosis Uterovaginal prolapse, incomplete- Primary Urinary, incontinence, stress female Female stress incontinence documented in this encounter Care Teams Tieing Machine Operator Relationship Specialty Start Date End Date Marcio Devlni DO [address] [place] [address] PCP - General Family Medicine 11/11/17 documented as of this encounter
--- OUTSIDE RECORDS SUMMARY | 2024-04-08 02:32 | XMS_ITS | Encounter Summary ---
Author Organization [facility] [place] [address] Care Team Providers Care Administrative Court Justice Name Role Phone Marcio Carranza MD Primary Care Provider [phone] Reason for Visit * Reason Onset Date Comments Medication Refill 12/03/2015 Encounter Details Date Type Department Care Team (Late st Contact Info) Description 12/04/2015 Ref[place] [address] Albert Saenz MD [facility] [place] [address] Ankylosing spondylitis of cervical region Social History [...] encounter Miscellaneous Notes * Telephone Encounter - Lory Jarquin, [facility] - 12/04/2015 9:22 AM EDTFrom: Kim Funes To: Lana Castro MD Sent: 12/03/2015 8:22 PM EDT Subject: Medication Renewal Request Original authorizing provider: LANA CASTRO MD Kim Funes would like a refill of the following medications: Adalimumab (HUMIRA PEN) 40 mg/0.8 mL Pen Injector Kit [LANA CASTRO MD] Preferred pharmacy: [place], [place] - [address] [facility] [address] Comment: documented in this encounter Plan of Treatment Upcoming Encounters Date Type Department Care Team (Late st Contact Info) Description 04/19/2024 10:00 AM EDT Hospital Encounter Non-[place]vasive [place] [phone] Arrived 04/29/2024 9:50 AM EDT Appointment MRI at [place] [phone] Luis Alfredo Velazquez MD [facility] [address] 04/29/2024 9:50 AM EDT Appointment MRI at [place] [phone] Luis Alfredo Velazquez MD [facility] [place] [address] 06/07/2024 2:30 PM EDT TH Visit (TeleHealth) Gastroenterology at [address] Dajuan Rachel MD [facility] [place] [address] 07/02/2024 2:00 PM EDT Appointment Non-[place] [phone] Luis Alfredo Velazquez MD [facility] [place] [address] 07/02/2024 4:40 PM EDT Office Visit Cardiology at [address] [phone] Luis Alfredo Velazqeuz MD [facility] [place] [place] [address] documented as of this encounter Visit Diagnoses Diagnosis Ankylosing spondylitis of cervical region Ankylosing spondylitis documented in this encounter Care Teams Administrative Court Justice Relationship Specialty Start Date End Date Marcio Carranza MD [address] [place] [address] PCP - General 08/07/10 11/10/17 documented as of this encounter
--- OUTSIDE RECORDS SUMMARY | 2024-04-08 02:32 | XMS_ITS | Encounter Summary ---
Author Organization [facility] [place] [address] Care Team Providers Care Inspector Final Assembly Electrical Name Role Phone Marcio Carranza MD Primary Care Provider [phone] Encounter Details Date Type Department Care Team (Late st Contact Info) Description 09/27/2016 11:00 AM EST Office [place] [phone] Albert Saenz MD [facility] [place] [address] Ankylosing spondylitis Social History Tobacco Use Types Packs/Day Years [...] Sign Reading Time Taken Comments Blood Pressure 176/72 09/27/2016 10:38 AM EST Pulse 64 09/27/2016 10:38 AM EST Temperature 36.9 ??C (98.4 ??F) 09/27/2016 10:[address] Respiratory Rate - - Oxygen Saturation 97% 09/27/2016 10:38 AM EST Inhaled Oxygen Concentration - - Weight 97.5 kg (215 lb) 09/27/2016 10:38 AM EST Height 167.6 cm (5' 6) 09/27/2016 10:38 AM EST Body Mass Index 34.7 09/27/2016 10:38 AM EST documented in this encounter Progress Notes * Albert Saenz MD - 09/27/2016 11:00 AM EST Rheumatology Fellow Outpatient Progress Note Rheumatologic Problem List 1. UC associated Ankylosing Spondylitis - Currently on Humira q2 weeks and SSZ - Symptoms of cervical and lumbar spine involvement - H/o of iritis x 3 times. No recent episodes - Hx of erythema nodosum associated with UC - s/p left hip replacement back in 2005 PMH -GERD -MÉNDEZ HPI: Kim Funes is a 56 y.o. female returns today for f/u of UC with ankylosis. She was doing well on Humira and SSZ until Jul. Since Nov feels like her hand joints Sx's have gradually gotten worse. Sx's are well controlled on the first week after humira inj, but start to progressively get worse over the second week until her next shot. Sx's primarily in small joints of b/l hands - PIP's swell up ocassionally. AM stiffness- 2hrs No LBP, Neck pain or large joint Sx's. Aunt and sister has RA No recent infections. EN rash has resolved. No new rash. No SOB, no blurring [...] others reviewed in eDH Physical Exam: BP 176/72 Pulse 64 Temp 36.9 ??C (98.4 ??F) Ht 167.6 cm (5' 6) Wt 97.5 kg (215 lb) SpO2 97% BMI 34.7 kg/m2 General: AAOx3, NAD, pleasant HEENT: Mucous membranes are moist, no oral mucosal ulcerations Neck: Supple, no lymphadenopathy, limited range of motion in all planes due to stiffness and pain. Back: Nontender over the spine and costovertebral angles bilaterally. Malcom's - 10 to 15.5 cm. Occiput-wall- 6 cm Extremities Shoulders: FROM, non-tender to palpation Elbows:FROM, (-)pain, (-)nodules Wrists: FROM, no swelling, non-tender Hands: Tender, mild erythema over MCP's and PIP's b/l. No swelling. full claw and fist Hips: FROM Knees: (-)effusions, non-tender ROM Ankles: FROM, non-tender, no swelling Feet: no MTP compression tenderness Vascular: Pulses are equal in all extremities. Labs: Last CRP, SEDRATE Recent Labs 02/29/16 1442 CRP 1.9 X ray L spine and C spine There is evidence of some degenerative disc disease at L5-S1. 2. Accentuated lordotic curvature of the lumbar spine. 3. Ankylotic fusion of both SI joints. 4. A portion of a total left hip prosthesis is noted. C spine There is possible ankylosis of the C2-C3-C4 facets. Assessment: Kim Funes is a 56 y.o. female who presents today for follow up visit forankylosis of the spine with UC. Her disease has largely been under control until recently on humira and SSZ. Over the past month she has Sx's of peripheral small hand joint arthritis that starts 1 week after her humira shot. Options of adding traditional DMARD's (MTX/lef) for peripheral arthritis are limited by her chronic liver disease with AST/ALT>2x. I discussed weekly Humira vs switch to Infliximab. Given her response tohumira, we opted to try weekly dosing before switch to infliximab. 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 - ESR, CRP, CMP,CBC today. Also check RF,ACPA- given her symmetrical small joint Sx's with FHx of RA. - Vaccinations- Premovax- 2013, prevnar 13 2015 - Bone health: Rpt DEXA (02/28)- T-score: -1.3, TITA: Lumbar spine, WHO diagnosis: low bone mass or osteopenia Continue Vit D and Calcium. Options of MTX/leflunomide are limited by underlying Liver disease. AST/ALT-> 2X ULN. Patient has Hx of ÉMNDEZ. RTC- 2 mos/earlier if Sx's persist. * Brittani Martinez DO - 09/27/2016 11:00 AM EST I was the attending physician supervising the resident in the above care. For the purposes of billing, the resident provided the care. documented in this encounter Plan of Treatment Upcoming Encounters Date Type Department Care Team (Late st Contact Info) Description 04/19/2024 10:00 AM EDT Hospital Encounter Non-[place] [phone] Arrived 04/29/2024 9:50 AM [place]T [place] [phone] Luis Alfredo Velazquez MD [facility] [place] [address] 04/29/2024 9:50 AM [place] [phone] Luis Alfredo Velazquez MD [facility] [place] [address] 06/07/2024 2:30 PM EDT TH Visit (TeleHealth) [place] [phone] Dajuan Rachel MD [facility] [place] [address] 07/02/2024 2:00 PM EDT Appointment Non-[place] [phone] Luis Alfredo Velazquez MD [facility] [place] [address] 07/02/2024 4:40 PM EDT Office Visit Cardiology at [address] [phone] Luis Alfredo Velazquez MD [facility] [place] [address] documented as of this encounter Procedures Procedure Name Priority Date/Time Associated Diagnosis Comments ANTI-CYCLIC CITRULLINATED PEPTIDE AB Routine 09/27/2016 12:10 PM EST Ankylosing spondylitis HEMOGRAM Routine 09/27/2016 12:10 PM EST Ankylosing spondylitis DIFFERENTIAL, AUTOMATED Routine 09/27/2016 12:10 PM EST Ankylosing spondylitis CBC (WITH DIFF) Routine 09/27/2016 12:10 PM EST Ankylosing spondylitis RHEUMATOID FACTOR, QUANT Routine 09/27/2016 12:10 PM EST Ankylosing spondylitis CRP, CARDIAC RISK (HS CRP) Routine 09/27/2016 12:10 PM EST Ankylosing spondylitis COMPREHENSIVE METABOLIC PANEL (NON-FASTING) Routine 09/27/2016 12:10 PM EST Ankylosing spondylitis documented in this encounter Results * Differential, Automated (09/27/2016 12:10 PM EST) Neutrophils % 47.3 % [facility] Neutr Abs (ANC) 3.79 1.70 - 6.10 x10(3)/[facility] Lymphocytes % 38.4 % [facility] Lymphocytes Abs 3.1 0.9 - 3.2 x10(3)/[facility] Monocytes % 9.6 % [facility] Monocyte Abs 0.8 0.3 - 0.9 x10(3)/[facility] Eosinophils % 3.6 % [facility] Eosinophils Abs 0.3 0.0 - 0.4 x10(3)/[facility] Basophils % 0.8 % [facility] Basophils Abs 0.1 0.0 - 0.1 x10(3)/[facility] Immature Gran % 0.30 % [facility] Comment: Immature granulocytes(IG's)percentage and absolute count will include metamyelocytes, myelocytes, and promyelocytes. Blood smears from CBCs yielding IG's will be scanned manually for concordance. If this scan disagrees with the automated IG or if promyelocytes are noted, a manual differential will be performed. Melanie Gran Abs 0.02 0.00 - 0.04 x10(3)/[facility] Blood specimen (specimen) 09/27/2016 12:10 PM EST 09/27/2016 12:20 PM EST Narrative Resulting Agency Comment Spec In Lab Brittani Martinez DO HEMATOLOGY ORDER EDUAR [facility] [place] [address] * (ABNORMAL) Hemogram (09/27/2016 12:10 PM EST) WBC 8.0 4.0 - 9.5 x10(3)/[facility] RBC 5.16 4.00 - 5.21 x10(6)/[facility] Hemoglobin 15.9(H) 11.7 - 15.5 gm/dL [facility] Hematocrit 48.0(H) 35.7 - 45.8 % [facility] MCV 93.0 82.6 - 94.4 [facility] MCH 30.8 27.1 - 32.0 pg [facility] MCHC 33.1 31.7 - 35.0 gm/dL [facility] Platelets 188 145 - 357 x10(3)/[facility] RDWSD 44.2 37.0 - 46.0 [facility] RDWCV 12.9 11.5 - 14.1 % [facility] MPV 10.9 7.6 - 12.9 [facility] nRBC % Auto 0.0 % [facility] nRBC Abs Auto 0.000 0.000 - 0.000 x10(3)/[facility] Blood specimen (specimen) 09/27/2016 12:10 PM EST 09/27/2016 12:20 PM EST Narrative Resulting Agency Comment Spec In Lab Brittani Martinez DO HEMATOLOGY ORDER EDUAR Performing Organization Address City/[facility]/ZIP Co de Phone Number [facility] [place] [address] * Cyclic Citrullinated Peptide (09/27/2016 12:10 PM EST) Pathologist [facility] Anti-Cyc Cit Peptide <8.0 <=17.0 unit/mL [facility] Blood specimen (specimen) 09/27/2016 12:10 PM EST 09/27/2016 12:20 PM EST Narrative Resulting Agency Comment Spec In Lab Brittani Martinez DO CHEMISTRY ORDERA BLES Performing Organization Address City/[facility]/ZIP Co de Phone Number [facility] [place] [address] * Rheumatoid factor, quant (09/27/2016 12:10 PM EST) RF <10 <=14 IU/mL [facility] Blood specimen (specimen) 09/27/2016 12:10 PM EST 09/27/2016 12:20 PM EST Narrative Resulting Agency Comment Spec In Lab Brittani Martinez DO IMMUNOLOGY ORDER EDUAR [facility] [place] [address] * (ABNORMAL) Comprehensive metabolic panel (non-fasting) (09/27/2016 12:10 PM EST) Glucose Lvl 113 65 - 199 mg/dL [facility] Comment:Diabetes: >=200 mg/d L plus symptoms BUN 19(H) 8 - 18 mg/dL [facility] Creatinine 0.73 0.70 - 1.20 mg/dL [facility] Comment: Please note that the pediatric reference intervals supplied above were not validated at [facility]. Results from pediatric patients should be interpreted in conjunction to the patient's age, height and muscle mass. Sodium 143 135 - 145 mmol/L [facility] Potassium 4.1 3.5 - 5.0 mmol/L [facility] Comment: Please note: ??Patients with WBC >100,000 may have falsely elevated Potassium levels. ??For accurate Potassium quantification in these patients send serum separator tube (gold top) for subsequent determinations. ??Contact the Clinical Chemistry Laboratory if there are any questions. Chloride 102 98 - 107 mmol/L [facility] CO2 29 22 - 31 mmol/L [facility] Anion Gap 12 5 - 15 mmol/L [facility] Calcium 10.0 8.5 - 10.5 mg/dL [facility] Total Protein 7.8 6.1 - 8.0 gm/dL [facility] Albumin 4.3 3.2 - 5.2 gm/dL [facility] AST 46(H) 0 - 30 unit/L [facility] ALT 55(H) 0 - 30 unit/L [facility] Alk Phos 73 40 - 104 unit/L [facility] Total Bilirubin 0.5 0.2 - 1.3 mg/dL [facility] Bili, Direct 0.1 0.0 - 0.3 mg/dL [facility] Estimated GFR >60 >=60 [facility] Comment: This estimated GFR (eGFR) [...] the following links into your internet browser. [email or web address] Blood specimen (specimen) 09/27/2016 12:10 PM EST 09/27/2016 12:20 PM EST Narrative Resulting Agency Comment Spec In Lab Brittani Martinez DO CHEMISTRY ORDERA [facility] [place] [address] * CRP, cardiac risk (HS CRP) (09/27/2016 12:10 PM EST) CRP High Sens 3.3 mg/L [facility] Comment: For cardiac risk assessment, two values (fasting or nonfasting sample acceptable) taken at least 2 weeks apart, should be averaged to provide a more reliable estimate of marker level. This laboratory will be using the recommendations from the AHA/CDC Scientific Statement for interpretations of future risks of cardiovascular events: ?<1.0 mg/L: low risk ?1.0 to 3.0 mg/L: moderate risk ?>3.0 mg/L: high risk ?>10.0 mg/L: Acute Inflammation Note: CRP values >10 mg/L indicate an acute inflammatory condition or infection. The >10 mg/L value should not be used for cardiac risk assessment and a repeat specimen should be collected at least two weeks after resolution of the acute inflammatory condition. References: 1. Demian VASQUEZ et. al. ??AHA/CDC Scientific Statement: Markers of Inflammation and Cardiovascular Disease. ??Circulation 2003; 107:499-511 2. Ivania PM. ??Clinical applications of C-reactive protein for cardiovascular disease detection and prevention. ??Circulation 2003; 107:363-369 CRP Cardiac Risk High Risk [facility] Blood specimen (specimen) 09/27/2016 12:10 PM EST 09/27/2016 12:20 PM EST Narrative Resulting Agency Comment Spec In Lab Brittani Martinez DO CHEMISTRY ORDERA BLES [facility] [place] [address] documented in this encounter Visit Diagnoses Diagnosis Ankylosing spondylitis documented in this encounter Care Teams Inspector Final Assembly Electrical Relationship Specialty Start Date End Date Marcio Carranza MD [address] [facility] [place] [address] PCP - General 08/07/10 11/10/17 documented as of this encounter
--- OUTSIDE RECORDS SUMMARY | 2024-04-08 02:32 | XMS_ITS | Encounter Summary ---
Author Organization [facility] [place] [address] Care Team Providers Care Leather Goods I Assembler Name Role Phone Marcio Carranza MD Primary Care Provider [phone] [phone] Encounter Details Date Type Department Care Team (Late st Contact Info) Description 08/14/2017 Telephone [place] [phone] Nico Campbell DO [facility] [place] [address] Social History Tobacco Use Types Packs/Day Years [...] encounter Miscellaneous Notes * Telephone Encounter - Nico Campbell DO - 08/14/2017 1:59 PM EST Called patient to report new lab results of CBC and CMP, which are relatively stable with slight increase in LFTs, otherwise ok. documented in this encounter Plan of Treatment Upcoming Encounters Date Type Department Care Team (Late st Contact Info) Description 04/19/2024 10:00 AM EDT Hospital Encounter Non-Invasive Cardiology Lab [place] [phone] Arrived 04/29/2024 9:50 AM EDT Appointment MRI at [place] [phone] Luis Alfredo Velazquez MD [facility] [place] [address] 04/29/2024 9:50 AM EDT Appointment MRI at [place] [phone] Luis Alfredo Velazquez MD [facility] [place] [address] 06/07/2024 2:30 PM EDT TH Visit (TeleHealth) [place] [phone] Dajuan Rachel MD [facility] [place]STROENTER[place] [address] 07/02/2024 2:00 PM EDT Appointment Non-[place]vasive [place] [phone] Luis Alfredo Velazquez MD [facility] [place] [address] 07/02/2024 4:40 PM EDT Office Visit Cardiology at [address] [phone] Luis Alfredo Velazquez MD [facility] [place] [address] documented as of this encounter Visit Diagnoses Not on filedocumented in this encounter Care Teams Leather Goods I Assembler Relationship Specialty Start Date End Date Marcio Carranza MD [address] [place] [address] PCP - General 08/07/10 11/10/17 documented as of this encounter
--- OUTSIDE RECORDS SUMMARY | 2024-04-08 02:32 | XMS_ITS | Encounter Summary ---
Author Organization Count Includes [facility] Address [facility] [place] [address] Care Team Providers Care Rotary Cutter Name Role Phone Marcio Carranza MD Primary Care Provider [phone] [phone] Encounter Details Date Type Department Care Team (Latest Contact Info) Description 08/24/2015 4:51 PM EST - 08/24/2015 11:59 PM [facility] Hospital Encounter XRay at [address] [place] [phone] Brittani Martinez, [facility] [place] [address] Ankylosing spondylitis Discharge Disposition: Home Social History Tobacco Use [...] subcutaneously every 14 days. 2 kit 6 04/06/2015 12/04/2015 hydrochlorothiazide (HYDRODIURIL) 12.5 mg Tablet Take 12.5 [...] AM EDT Hospital Encounter Non-Invasive [place] [address] Arrived 04/29/2024 9:50 AM EDT Appointment MRI at [place] [phone] Luis Alfredo Velazquez MD [facility] [place] [address] 04/29/2024 9:50 AM EDT Appointment MRI at [place] [address] Luis Alfredo Velazquez MD [facility] [place] [address] 06/07/2024 2:30 PM EDT TH Visit (TeleHealth) Gastroenterology at [place] [phone] Dajuan Rachel MD [facility] [place] [address] 07/02/2024 2:00 PM EDT Appointment Non-Invasive Cardiology Lab [place] [phone] Luis Alfredo Velazquez MD [facility] [place] [address] 07/02/2024 4:40 PM EDT Office Visit Cardiology at [place] [phone] Luis Alfredo Velazquez MD [facility] [place] [address] documented as of this encounter Procedures Procedure Name Priority Date/Time Associated Diagnosis Comments XR LUMBAR SPINE 2 OR 3 VIEWS Routine 08/24/2015 5:10 PM EST Ankylosing spondylitis documented in this encounter Results * XR Lumbar Spine 2 Or 3 Views (GENERIC) (08/24/2015 5:10 PM EST) Anatomical Region Laterality Modality L-spine N/A Digital Radiogra phy Impressions 08/24/2015 5:22 PM EST IMPRESSION: 1. ??There is evidence of some degenerative disc disease at L5-S1. 2. ??Accentuated lordotic curvature of the lumbar spine. 3. ??Ankylotic fusion of both SI joints. 4. ??A portion of a total left hip prosthesis is noted. Narrative 08/24/2015 5:22 PM EST EXAMINATION: XR LUMBAR SPINE 2 OR 3 VIEWS CLINICAL HISTORY: positive IgM/Lupus anticoagulant, no arterial or venous clots, no miscarriage. TECHNIQUE: 2 standing views. COMPARISON: None FINDINGS: No acute fractures are seen. There is some intravertebral disc space narrowing at L5-S1 consistent with degenerative disc disease. The remaining intervertebral disc spacings and vertebral body heights appear adequately maintained. There is eccentric to aerated lordotic curvature of the lumbar spine noted. There is ankylotic fusion of both SI joints. The lumbar pedicles, transverse processes and spinous processes appeared intact. A portion of a total left hip prosthesis is noted. Procedure Note TiaSamm salmeron, DO - 08/24/2015 EXAMINATION: XR LUMBAR SPINE 2 OR 3 VIEWS CLINICAL HISTORY: positive IgM/Lupus anticoagulant, no arterial or venousclots, no miscarriage. TECHNIQUE: 2 standing views. COMPARISON: None FINDINGS: No acute fractures are seen. There is some intravertebral disc spacenarrowing at L5-S1 consistent with degenerative disc disease. The remainingintervertebral disc spacings and vertebral body heights appear adequately maintained.There is eccentric to aerated lordotic curvature of the lumbar spine noted. Thereis ankylotic fusion of both SI joints. The lumbar pedicles, transverseprocesses and spinous processes appeared intact. A portion of a total left hipprosthesis is noted. IMPRESSION IMPRESSION: 1. There is evidence of some degenerative disc disease at L5-S1. 2. Accentuated lordotic curvature of the lumbar spine. 3. Ankylotic fusion of both SI joints. 4. A portion of a total left hip prosthesis is noted. Brittani Martinez DO IMG DX ORDERABLE S documented in this encounter Visit Diagnoses Diagnosis Ankylosing spondylitis documented in this encounter Care Teams Rotary Cutter Relationship Specialty Start Date End Date Marcio Carranza MD [address] [place] [address] PCP - General 08/07/10 11/10/17 documented as of this encounter
--- OUTSIDE RECORDS SUMMARY | 2024-04-08 02:32 | XMS_ITS | Encounter Summary ---
Author Organization Formerly [facility], Later [facility] [place] [address] Care Team Providers Care Detention Attendant Name Role Phone Marcio Carranza MD Primary Care Provider [phone] Encounter Details Date Type Department Care Team (Late st Contact Info) Description 02/29/2016 1:45 PM EDT Office [place] [phone] Albert Saenz MD [facility] [place] [address] Enteropathic arthritis Social History Tobacco Use Types Packs/Day Years [...] Sign Reading Time Taken Comments Blood Pressure 142/73 02/29/2016 1:35 PM EDT Pulse 68 02/29/2016 1:35 PM EDT Temperature 36.6 ??C (97.9 ??F) 02/29/2016 1:35 PM ED T Respiratory Rate - - Oxygen Saturation 96% 02/29/2016 1:35 PM EDT Inhaled Oxygen Concentration - - Weight 98.4 kg (217 lb) 02/29/2016 1:35 PM EDT Height 167.6 cm (5' 6) 02/29/2016 1:35 PM EDT Body Mass Index 35.02 02/29/2016 1:35 PM EDT documented in this encounter Progress Notes * Lola Haley DO - 03/01/2016 9:24 AM EDT ATTENDING ADDENDUM The patient's history was reviewed, and I interviewed and examined the patient with Dr. Saenz. I agree with his summary, findings, and plan. * Albert Saenz MD - 02/29/2016 5:15 PM EDT Last 3 LFTs Recent Labs 02/29/16 1442 AST 63* ALT 83* ALKPHOS 78 BILITOT 0.4 BILIDIR 0.1 . Last 3 wbc, hgb, hct plt Recent Labs 02/29/16 1442 WBC 7.4 HGB 16.2* HCT 48.5* PLATELET 193 Last CRP, SEDRATE Recent Labs 02/29/16 1442 08/24/15 1645 CRP 1.9 1.8 SEDRATE -- 6 AST/ALT-> 2X ULN. Patient has Hx of MÉNDEZ. At baseline has increased AST/ALT. Would continue her current meds at same dose * Albert Saenz MD - 02/29/2016 2:02 PM EDT Rheumatology Fellow Outpatient Progress Note [...] -GERD -MÉNDEZ HPI: Kim Funes is a 55 y.o. female returns today for f/u of UC with ankylosis. She is doing well on Humira and SSZ. No flares or new joints involved. EN rash has resolved. No new rash. She has not had any recent infections on her current dose of Humira and SSZ. AM stiffness- 10 min. No SOB, no blurring of vision,photophobia, no [...] others reviewed in eDH Physical Exam: BP 142/73 Pulse 68 Temp 36.6 ??C (97.9 ??F) (Oral) Ht 167.6 cm (5' 6) Wt 98.4 kg (217 lb) SpO2 96%BMI 35.02 kg/m2 General: AAOx3, NAD, pleasant HEENT: Mucous membranes are moist, no oral mucosal ulcerations Neck: Supple, no lymphadenopathy, limited range of motion in all planes due to stiffness and pain. Back: Nontender over the spine and costovertebral angles bilaterally. Malcom's - 10 to 15.5 cm. Occiput-wall- 6 cm ROM at neck lateral rotation span- 120 degree Flexion- 75 , extension 60 degrees. Extremities Shoulders: FROM, non-tender to palpation Elbows:FROM, (-)pain, (-)nodules Wrists: FROM, no swelling, non-tender Hands: No synovitis, no MCP compression tenderness, full claw and fist Hips: FROM Knees: (-)effusions, non-tender ROM Ankles: FROM, non-tender, no swelling Feet: no MTP compression tenderness Vascular: Pulses are equal in all extremities. Labs: Last CRP, SEDRATE Recent Labs 08/24/15 1645 CRP 1.8 SEDRATE 6 X ray L spine and C spine There is evidence of some degenerative disc disease at L5-S1. 2. Accentuated lordotic curvature of the lumbar spine. 3. Ankylotic fusion of both SI joints. 4. A portion of a total left hip prosthesis is noted. C spine There is possible ankylosis of the C2-C3-C4 facets. Assessment: Kim Funes is a 55 y.o. 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 She is doing well on humia and SSZ. No new joint symptoms or extraarticular manifestations # Axial spondyloarthropathy Plan: - cont SSZ and Humira - ESR, CRP, CMP,CBC today. - Vaccinations- Premovax- 2014, prevnar 13 today. - Bone health: Rpt DEXA, Vit D and Calcium. - rtc in 6 months documented in this encounter Plan of Treatment Upcoming Encounters Date Type Department Care Team (Late st Contact Info) Description 04/19/2024 10:00 AM EDT Hospital Encounter Non-Invasive [place] [phone] Arrived 04/29/2024 9:50 AM EDT Appointment MRI at [place] [phone] Luis Alfredo Velazquez MD [facility] [place] [address] 04/29/2024 9:50 AM [place] [phone] Luis Alfredo Velazquez MD [facility] [place] [address] 06/07/2024 2:30 PM EDT TH Visit (TeleHealth) Gastroenterology at [place] [phone] Dajuan Rachel MD [facility] [place] [address] 07/02/2024 2:00 PM EDT Appointment Non-Invasive [place] [phone] Luis Alfredo Velazquez MD [facility] [place] [address] 07/02/2024 4:40 PM EDT Office Visit Cardiology at [address] [phone] Luis Alfredo Velazquez MD [facility] [place] [address] documented as of this encounter Procedures Procedure Name Priority Date/Time Associated Diagnosis Comments HEMOGRAM Routine 02/29/2016 2:42 PM EDT Enteropathic arthritis DIFFERENTIAL, AUTOMATED Routine 02/29/2016 2:42 PM EDT Enteropathic arthritis CBC (WITH DIFF) Routine 02/29/2016 2:42 PM EDT Enteropathic arthritis CRP, CARDIAC RISK (HS CRP) Routine 02/29/2016 2:42 PM EDT Enteropathic arthritis COMPREHENSIVE METABOLIC PANEL (NON-FASTING) Routine 02/29/2016 2:42 PM EDT Enteropathic arthritis documented in this [...] BMD measurements and plots are available in [employer] under the imaging tab. Paper copies will be sent to providers without E- access. If you have received this report without the data sheet and do not have access to [employer], please contact Radiology Popped Corn Oven Attendant at [phone] Friday thru Friday 8am-4pm. Narrative 03/05/2016 2:40 [...] bone mass orosteopenia.. ......... Comparison......... Previous scan: 2011, Baseline scan: [...] BMD measurements and plots are available in E-DHunder the imaging tab. Paper copies will be sent to providers without E- access.If you have received this report without the data sheet and do not haveaccess to E-, please contact Radiology [employer]ven Attendant at [phone] Friday thruFriday 8am-4pm. Lola Haley DO IMG DEXA ORDERABLE S * Differential, Automated (02/29/2016 2:42 PM EDT) Neutrophils % 45.9 % [facility] Neutr Abs (ANC) 3.38 1.50 - 6.30 x10(3)/[facility] Lymphocytes % 41.3 % [facility] Lymphocytes Abs 3.0 1.0 - 3.6 x10(3)/[facility] LABOR[facility] Monocytes % 10.0 % [facility] Monocyte Abs 0.7 0.2 - 1.0 x10(3)/[facility] Eosinophils % 2.3 % [facility] Eosinophils Abs 0.2 0.0 - 0.5 x10(3)/[facility] Basophils % 0.4 % [facility] Basophils Abs 0.0 0.0 - 0.2 x10(3)/[facility] Immature Gran % 0.10 % [facility] Comment: Immature granulocytes(IG's)percentage and absolute count will include metamyelocytes, myelocytes, and promyelocytes. Blood smears from CBCs yielding IG's will be scanned manually for concordance. If this scan disagrees with the automated IG or if promyelocytes are noted, a manual differential will be performed. Melanie Gran Abs 0.01 0.00 - 0.05 x10(3)/[facility]OR[facility] Blood specimen (specimen) 02/29/2016 2:42 PM EDT 02/29/2016 2:48 PM EDT Narrative Resulting Agency Comment Spec In Lab Lola Haley DO HEMATOLOGY ORDERAB LES [facility] [place] [address] * (ABNORMAL) Hemogram (02/29/2016 2:42 PM EDT) WBC 7.4 4.0 - 10.0 x10(3)/[facility] RBC 5.15 3.93 - 5.22 x10(6)/[facility] Hemoglobin 16.2(H) 11.2 - 15.7 gm/dL [facility] Hematocrit 48.5(H) 34.0 - 45.0 % [facility] MCV 94.2(H) 79.0 - 94.0 fL [facility] MCH 31.5 26.6 - 32.2 pg [facility] MCHC 33.4 32.0 - 36.5 gm/dL [facility] Platelets 193 145 - 370 x10(3)/mcL [facility] RDWSD 46.0 35.0 - 46.0 fL [facility] RDWCV 13.4 10.9 - 14.4 % [facility] MPV 11.6 9.0 - 12.0 fL [facility] Blood specimen (specimen) 02/29/2016 2:42 PM EDT 02/29/2016 2:48 PM EDT Narrative Resulting Agency Comment Spec In Lab Lola Haley DO HEMATOLOGY ORDERAB LES [facility] [place] [address] * High Sensitivity CRP (02/29/2016 2:42 PM EDT) CRP High Sens 1.9 mg/L [facility] Comment: Interpretations: 1) For accurate cardiac risk assessment, the average of 2 values >2 weeks apart should be obtained (ref 1&2). A value >10 mg/L indicates an inflammatory condition, concentrations >10 mg/L should not be used for cardiac risk assessment. ?<1.0 mg/L: low risk ?1.0 - 3.0 mg/L: moderate risk ?>3.0 mg/L: high risk groups for future cardiovascular events 2) The general reference range of apparently healthy individuals using this test is <5.0 mg/L (derived from the test package insert) References: 1. Demian VASQUEZ et. al. ??AHA/CDC Scientific Statement: Markers of Inflammation and Cardiovascular Disease. ??Circulation 2003; 107:499-511 2. Ivania PM. ??Clinical applications of C-reactive protein for cardiovascular disease detection and prevention. ??Circulation 2003; 107:363-369 Blood specimen (specimen) 02/29/2016 2:42 PM EDT 02/29/2016 2:48 PM EDT Narrative Resulting Agency Comment Spec In Lab Lola Davenport Tera DO CHEMISTRY ORDERABL ES [facility] [place] [address] * (ABNORMAL) Comprehensive metabolic panel (non-fasting) (02/29/2016 2:42 PM EDT) Glucose Lvl 139 65 - 199 mg/dL [facility] Comment:Diabetes: >=200 mg/d L plus symptoms BUN 15 8 - 18 mg/dL [facility] Creatinine 0.82 0.70 - 1.20 mg/dL [facility] Comment: Please note that the pediatric reference intervals supplied above were not validated at [facility]. Results from pediatric patients should be interpreted in conjunction to the patient's age, height and muscle mass. Sodium 144 135 - 145 mmol/L [facility] Potassium 4.0 3.5 - 5.0 mmol/L [facility] Comment: Please note: ??Patients with WBC >100,000 may have falsely elevated Potassium levels. ??For accurate Potassium quantification in these patients send serum separator tube (gold top) for subsequent determinations. ??Contact the Clinical Chemistry Laboratory if there are any questions. Chloride 103 98 - 107 mmol/L [facility] CO2 29 22 - 31 mmol/L [facility] Anion Gap 12 5 - 15 mmol/L [facility] Calcium 10.1 8.5 - 10.5 mg/dL [facility] Total Protein 7.9 6.1 - 8.0 gm/dL [facility] Albumin 4.4 3.2 - 5.2 gm/dL [facility] AST 63(H) 0 - 30 unit/L [facility] ALT 83(H) 0 - 30 unit/L [facility] Alk Phos 78 40 - 104 unit/L [facility] Total Bilirubin 0.4 0.2 - 1.3 mg/dL [facility] Bili, Direct 0.1 0.0 - 0.3 mg/dL [facility] Estimated GFR >60 >=60 [facility] Comment: This estimated GFR [...] the following links into your internet browser. 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
--- OUTSIDE RECORDS SUMMARY | 2024-04-08 02:33 | XMS_ITS | Encounter Summary ---
Author Organization [facility] Address [facility] [place] [address] Care Team Providers Care Yarn Washer Name Role Phone Marcio Carranza MD Primary Care Provider [phone] [phone] Encounter Details Date Type Department Care Team (Latest Contact Info) Description 04/22/2012 2:58 PM EDT - 04/22/2012 11:59 PM EDT Hospital Encounter XRay at [facility] [address] [facility] [place] [phone] CLINIC, Marcio Hoyos MD [address] [place] [address] Discharge Disposition: Home Social History Tobacco Use [...] mg tablet 1000MG, PO, Once daily 10/15/2010 adalimumab (HUMIRA) 40 mg/0.8 mL injectionIndication s:Spondylitis Inject 0.8 mLs subcutaneously every 14 days. 2 each 6 04/02/2012 10/09/2012 simvastatin (ZOCOR) 10 mg tabletIndications:L ipid disorder Take 1 tablet by mouth nightly. 90 tablet 3 09/19/2011 09/18/2012 ursodiol (ACTIGALL) 300 mg capsule Take 1 capsule by mouth 3 times daily. 270 tablet 3 09/19/2011 04/06/2020 atenolol-chlorthali done (TENORETIC) 100-25 mg per tablet Take 0.5 tablets by mouth daily. 05/18/2014 Ferrous Fumarate 63 mg (20 mg Iron) [...] AM EDT Hospital Encounter Non[place] [address] Arrived 04/29/2024 9:50 AM EDT Appointment MRI at [place] [phone] Luis Alfredo Velazquez MD [facility] [place] [address] 04/29/2024 9:50 AM EDT Appointment MRI at [place] [phone] Luis Alfredo Velazquez MD [facility] [place] [address] 06/07/2024 2:30 PM EDT TH Visit (TeleHealth) [place] [address] Dajuan Rachel MD [facility] [place] [address] 07/02/2024 2:00 PM EDT Appointment Non-Invasive Cardiology Lab [address] Luis Alfredo Velazquez MD [facility] [place] [address] 07/02/2024 4:40 PM EDT Office Visit Cardiology at [place] [phone] Luis Alfredo Velazquez MD [facility] [place] [address] documented as of this encounter Procedures Procedure Name Priority Date/Time Associated Diagnosis Comments DXA CENTRAL SPINE, HIP, AND/OR WHOLE BODY (GENERIC) Routine 04/22/2012 3:27 PM EDT documented in this encounter Results * DEXA CENTRAL-SPINE, HIP, AND/OR WHOLE BODY (04/22/2012 3:27 PM EDT) Anatomical Region Laterality Modality C-spine, Hip N/A Radiographic Raegan ging 04/22/2012 3:27 PM EDT Narrative 04/22/2012 4:15 PM EDT Examination DXA CENTRAL-SPINE,HIP, AND/OR WHOLE BODY Clinical History BASELINE;ESTROGEN DEFICIENT, HISTORY OF STEROID USE *TN* Technique Scans were acquired at the lumbar spine, right hip, the right hip was measured because of recent left total hip arthroplasty.. Findings Lowest T-score at a diagnostic region of interest: T-score-1.5, TITA:Lumbar spine, WHO diagnosis: Low bone mass or osteopenia ........Comparison......... Recent scan: 2001, Baseline scan 1995 Total Hip: Today's measurements represent a new baseline. Total spine: Compared to the most recent scan, 5 % increase. Compared to the baseline scan, 3.1 % increase. Impression The measurements satisfied the WHO classification for low bone mass or osteopenia. Interval increase in the lumbar spine measurements indicates positive response to therapy. _ Estimating Fracture Risk: The relationship between bone [...] prove useful when discussing risk with a given individual's risk might differ from the tool's estimate. The tool does note take into account the dose-response associated with most risk factors. For example, the significant increase in risk associated with multiple prior fractures compared to a single prior fracture is not taken into account. Similarly, the location of a previous fracture, the mount of glucocorticoids and number of cigarettes smoked are not considered. These limitations are discussed in a Frequently Asked Questions section of the [employer] website which you are encouraged to review. DEXA data sheets with BMD measurements and plots are available in e [employer] under the imaging tab. Procedure Note Dimple Viera MD - 04/22/2012 Examination DXA CENTRAL-SPINE,HIP, AND/OR WHOLE BODY Clinical History BASELINE;ESTROGEN DEFICIENT, HISTORY OF STEROID USE *TN* Technique Scans were acquired at the lumbar spine, right hip, the right hip wasmeasured because of recent left total hip arthroplasty.. Findings Lowest T-score at a diagnostic region of interest: T-score-1.5, TITA:Lumbar spine, WHO diagnosis: Low bone mass orosteopenia ........Comparison......... Recent scan: 2001, Baseline scan 1995 Total Hip: Today's measurements represent a new baseline. Total spine: Compared to the most recent scan, 5 % increase. Compared to the baseline scan, 3.1 % increase. Impression The measurements satisfied the WHO classification for low bone mass or osteopenia. Interval increase in the lumbar spine measurements indicates positive response to therapy. _ Estimating Fracture Risk: The relationship between bone mineral density (BMD) and risk of fractureis well established. As BMD decreases, risk increases. Quantifying risk is difficult and is usually limited to estimation of the relative risk - aterm which may have limited value when trying to discuss an individual's risk. Estimating the absolute risk for a patient requires an understanding ofthe incidence rate in a given population and consideration of multiple,partially independent, risk factors in addition to BMD. The World Health Organization (WHO) has developed a fracture riskprediction tool that calculates a ten-year risk of major osteoporotic fracture basedon femoral neck bone density measurements and nine clinical risk factors for individuals who have not been treated for osteoporosis. This is available through an interactive web-based interface (http://www.shef.ac.uk/FRAX/)and can be used to estimate a given patient's absolute risk of majorosteoporotic fracture or hip fracture over the next 10 years. These estimates may prove useful when discussing risk with a given individual's risk might differfrom the tool's estimate. The tool does note take into account thedose-response associated with most risk factors. For example, the significant increasein risk associated with multiple prior fractures compared to a single prior fracture is not taken into account. Similarly, the location of a previous fracture, the mount of glucocorticoids and number of cigarettes smoked arenot considered. These limitations are discussed in a Frequently AskedQuestions section of the [employer] website which you are encouraged to review. DEXA data sheets with BMD measurements and plots are available in e DHunder the imaging tab. Ivelisse Rubin APRN IMG DEXA ORDERABLES documented in this encounter Visit Diagnoses Not on filedocumented in this encounter Care Teams Yarn Washer Relationship Specialty Start Date End Date Marcio Carranza MD [address] [place] [address] PCP - General 08/07/10 11/10/17 documented as of this encounter
--- OUTSIDE RECORDS SUMMARY | 2024-04-08 02:33 | XMS_ITS | Encounter Summary ---
[place] [address] Care Team Providers Care Supply Chain Program Manager Name Role Phone Marcio Carranza MD Primary Care Provider [phone] Encounter Details Date Type Department Care Team (Late st Contact Info) Description 03/01/2015 10:15 AM EDT [place] [id number] Shola Whitlock [facility] [place] [address] Ankylosing spondylitis Discharge Disposition: Home Social History [...] Sign Reading Time Taken Comments Blood Pressure 153/91 03/01/2015 10:22 AM EDT Pulse 76 03/01/2015 10:22 AM EDT Temperature 37.1 ??C (98.8 ??F) 03/01/2015 10:22 AM E DT Respiratory Rate - - Oxygen Saturation 98% 03/01/2015 10:22 AM EDT Inhaled Oxygen Concentration - - Weight 97.1 kg (214 lb) 03/01/2015 10:22 AM EDT Height 167.6 cm (5' 6) 03/01/2015 10:22 AM EDT Body Mass Index 34.54 03/01/2015 10:22 AM EDT documented in this encounter Progress Notes * Chepe Jackson MD - 03/02/2015 9:35 AM EDT I was the attending physician supervising the resident in the above care. For the purposes of billing, the resident provided the care. * Shola Whitlock DO - 03/01/2015 11:04 AM EDT Rheumatology Fellow Outpatient Progress Note Rheumatologic Problem List 1. UC associated Ankylosing Spondylitis - Currently on Humira [id number] and SSZ - Symptoms of cervical and lumbar spine involvement - Erythema nodosum associated with UC (difficult to treat but responded well to Humira) 3. OA - s/p left hip replacement back in 2005 PMH -GERD -MÉNDEZ HPI: Kim Funes is a 54 y.o. female returns today for f/u of UC related ankylosis. She reports that since being back on Humira (several months now but had a period of tiny holiday) she feels well but her shoulders and hips have been giving her some trouble. She specifically reports having some morning stiffness lasting about 30-45min in these joints. When she was on Humira (prior to the drug holiday) she did not have these symptoms. Additionally, she thinks that these symptoms are mild but noticeable. Overall she seems to have good control of her ankylosis symptoms with minimal pain or stiffness in her spine or joints. She has not had any recent infections on her current dose of Humira and SSZ. She is also followed by GI for her UC which also seems to be well controlled on her current regimen without any recent flares of her GI symptoms. She denies any fever/chills, no abd pain, no chest pain or sob. She does report that she is getting over a UTI treated with bactrim about 1 week ago. No other infections reported. ROS: A ROS was performed and negative except for above mentioned pertinent positives. Patient Active Problem List Diagnosis Code ??? Ulcerative colitis 556.9 ??? DIFFICULT AIRWAY ??? MÉNDEZ (nonalcoholic steatohepatitis) 571.8 ??? Lipid disorder 272.9 ??? Ankylosing spondylitis 720.0 ??? Hypertension 401.9 ??? GERD (gastroesophageal reflux disease) 530.81 Allergies Reviewed and updated in eDH Medications: Humira SSZ 1000mg BID All others reviewed in eDH Physical Exam: BP 153/91 Pulse 76 Temp(Src) 37.1 ??C (98.8 ??F) (Oral) Ht 167.6 cm (5' 6) Wt 97.07 kg (214 lb) BMI 34.56 kg/m2 SpO2 98% General: AAOx3, NAD, pleasant HEENT: Mucous membranes are moist, no oral mucosal ulcerations Neck: Supple, no lymphadenopathy, + significantly limited range of motion in all planes due to stiffness and pain. Cardiovascular: RR, (-)murmurs, rubs, or gallops. Lungs: Clear to auscultation bilaterally. (-)R/R/W Abdomen: Soft, nontender, nondistended, normal active bowel sounds, no hepatosplenomegaly. Back: Nontender over the spine and costovertebral angles bilaterally. Neuro: Alert and oriented x3. Strength 5/5 throughout, Sensation to light touch is grossly normal throughout. DTRs are 2+ throughout. Skin: Small eraser size black scar area on left lateral barba (old) Extremities Shoulders: FROM, non-tender to palpation Elbows:FROM, (-)pain, (-)nodules Wrists: FROM, no swelling, non-tender Hands: No synovitis, no MCP compression tenderness, full claw and fist Hips: FROM Knees: (-)effusions, non-tender ROM Ankles: FROM, non-tender, no swelling Feet: no MTP compression tenderness Shobers: normal excursion Vascular: Pulses are equal in all extremities. Labs: See below Assessment: Kim Funes is a 54 y.o. 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 She seems to be doing well with Humira and SSZ which she is tolerating nicely. Gumaro complain of some residual joint pain and stiffness in her shoulder and hip joints that has notcompletely resolved after restarting Humira from her drug holiday (for the skin disease initially thought to be infection but now we know was E Nodosum). From a GI perspective she has good control ofher symptoms w/out any flares. I offered a short course of steroids (prednisone 10mg daily for a week and 5mg daily for a week) just to control her shoulder and hip pain. We will see her back in clinic in about 6 months to make sure she is feeling well. I will also check her labs today to make sureher body is tolerating current regimen. Plan: 1. UC related ankylosis - cont SSZ & Humira - short trial of prednisone over 2 weeks to control her shoulder and hip pain - check labs today esr/crp, cbc, cmt - rtc in 3 months 2. Skin lesions thought to be erythema nodosum - followed by dermaotlogy - doing well and no active skin lesions since restarting humira Shola Whitlock D.O. Rheumatology Fellow documented in this encounter Plan of Treatment Upcoming Encounters Date Type Department Care Team (Late st Contact Info) Description 04/19/2024 10:00 AM EDT Hospital Encounter Non-[place] [address] Arrived 04/29/2024 9:50 [place] [phone] Luis Alfredo Velazquez MD [facility] [place] [address] 04/29/2024 9:50 [place] [phone] Luis Alfredo Velazquez MD [facility] [place] [address] 06/07/2024 2:30 PM EDT TH Visit (TeleHealth) [place] [address] Dajuan Rachel MD [facility] GASTROENTEROLOG[place] [address] 07/02/2024 2:00 PM EDT Appointment Non-[place] [address] Luis Alfredo Velazquez MD [facility] CARDIOLOGY [place], [place] [id number] 07/02/2024 4:40 PM EDT Office Visit Cardiology at [address] [address] Luis Alfredo Velazquez MD [facility] [place] [address] documented as of this encounter Procedures Procedure Name Priority Date/Time Associated Diagnosis Comments HEMOGRAM Routine 03/01/2015 11:48 AM EDT Ankylosing spondylitis DIFFERENTIAL, AUTOMATED Routine 03/01/2015 11:48 AM EDT Ankylosing spondylitis SEDIMENTATION RATE Routine 03/01/2015 11 :48 AM EDT Ankylosing spondylitis CBC (WITH DIFF) Routine 03/01/2015 11:48 AM EDT Ankylosing spondylitis CRP, CARDIAC RISK (HS CRP) Routine 03/01/2015 11:48 AM EDT Ankylosing spondylitis COMPREHENSIVE METABOLIC PANEL (NON-FASTING) Routine 03/01/2015 11:48 AM EDT Ankylosing spondylitis documented in this encounter Results * Differential, Automated (03/01/2015 11:48 AM EDT) Neutrophils % 45.7 % CERNER MILLENNIUM Neutr Abs (ANC) 3.09 1.50 - 6.30 x10(3)/mcL CERNER MILLENNIUM Lymphocytes % 43.6 % CERNER MILLENNIUM Lymphocytes Abs 2.9 1.0 - 3.6 x10(3)/mcL CERNER MILLENNIUM Monocytes % 8.9 % CERNER MILLENNIUM Monocyte Abs 0.6 0.2 - 1.0 x10(3)/mcL CERNER MILLENNIUM Eosinophils % 1.5 % CERNER MILLENNIUM Eosinophils Abs 0.1 0.0 - 0.5 x10(3)/mcL CERNER MILLENNIUM Basophils % 0.3 % CERNER MILLENNIUM Basophils Abs 0.0 0.0 - 0.2 x10(3)/mcL CERNER MILLENNIUM Immature Gran % 0.00 % CERN ER MILLENNIUM Comment: Immature granulocytes(IG's)percentage and absolute count will include metamyelocytes, myelocytes, and promyelocytes. Blood smears from CBCs yielding IG's will be scanned manually for concordance. If this scan disagrees with the automated IG or if promyelocytes are noted, a manual differential will be performed. Melanie Gran Abs 0.00 0.00 - 0.05 x10(3)/mcL CERNER MILLENNIUM Blood specimen (specimen) 03/01/2015 11:48 AM EDT 03/01/2015 12:20 PM EDT Narrative Resulting Agency Comment Spec In Lab Chepe Jackson MD HEMATOLOGY ORDERABLE S CERNER MILLENNIUM * (ABNORMAL) Hemogram (03/01/2015 11:48 AM EDT) WBC 6.8 4.0 - 10.0 x10(3)/mcL CERNER MILLENNIUM RBC 5.16 3.93 - 5.22 x10(6)/mcL CERNER MILLENNIUM Hemoglobin 16.4(H) 11.2 - 15.7 gm/dL CERNER MILLENNIUM Hematocrit 47.8(H) 34.0 - 45.0 % CERNER MILLENNIUM MCV 92.6 79.0 - 94.0 fL CERNER MILLENNIUM MCH 31.8 26.6 - 32.2 pg CERNER MILLENNIUM MCHC 34.3 32.0 - 36.5 gm/dL CERNER MILLENNIUM Platelets 193 145 - 370 x10(3)/mcL CERNER MILLENNIUM RDWSD 44.8 35.0 - 46.0 fL CERNER MILLENNIUM RDWCV 13.3 10.9 - 14.4 % CERNER MILLENNIUM MPV 11.4 9.0 - 12.0 fL CERNER MILLENNIUM Blood specimen (specimen) 03/01/2015 11:48 AM EDT 03/01/2015 12:20 PM EDT Narrative Resulting Agency Comment Spec In Lab Chepe Jackson MD HEMATOLOGY ORDERABLE S CERNER MILLENNIUM * (ABNORMAL) Comprehensive metabolic panel (non-fasting) (03/01/2015 11:48 AM EDT) Glucose Lvl 137 65 - 199 mg/dL CERNER MILLENNIUM Comment:Diabetes: >=200 mg/d L plus symptoms BUN 18 8 - 18 mg/dL CERNER MILLENNIUM Creatinine 0.85 0.70 - 1.20 mg/dL CERNER MILLENNIUM Comment: Please note that the pediatric reference intervals supplied above were not validated at [facility]. Results from pediatric patients should be interpreted in conjunction to the patient's age, height and muscle mass. Sodium 143 135 - 145 mmol/L CERNER MILLENNIUM Potassium 4.2 3.5 - 5.0 mmol/L CERNER MILLENNIUM Comment: Please note: ??Patients with WBC >100,000 may have falsely elevated Potassium levels. ??For accurate Potassium quantification in these patients send serum separator tube (gold top) for subsequent determinations. ??Contact the Clinical Chemistry Laboratory if there are any questions. Chloride 102 98 - 107 mmol/L CERNER MILLENNIUM CO2 29 22 - 31 mmol/L CERNER MILLENNIUM Anion Gap 12 5 - 15 mmol/L CERNER MILLENNIUM Calcium 10.4 8.5 - 10.5 mg/dL CERNER MILLENNIUM Total Protein 7.8 6.1 - 8.0 gm/dL CERNER MILLENNIUM Albumin 4.5 3.2 - 5.2 gm/dL CERNER MILLENNIUM AST 51(H) 0 - 30 unit/L CERNER MILLENNIUM ALT 64(H) 0 - 30 unit/L CERNER MILLENNIUM Alk Phos 82 40 - 104 unit/L CERNER MILLENNIUM Total Bilirubin 0.4 0.2 - 1.3 mg/dL CERNER MILLENNIUM Bili, Direct 0.1 0.0 - 0.3 mg/dL CERNER MILLENNIUM Estimated GFR >60 >=60 CERNER MILLENNIUM Comment: This estimated GFR (eGFR) value was [...] the following links into your internet browser. [email or web address] Blood specimen (specimen) 03/01/2015 11:48 AM EDT 03/01/2015 12:20 PM EDT Narrative Resulting Agency Comment Spec In Lab Chepe Jackson MD CHEMISTRY ORDERABLES CERTRU RICKETTS * High Sensitivity CRP (03/01/2015 11:48 AM EDT) CRP High Sens 2.0 mg/L CERNER MILLENNIUM Comment: Interpretations: 1) For accurate cardiac risk [...] prevention. ??Circulation 2003; [phone]:[phone] Blood specimen (specimen) 03/01/2015 11:48 AM EDT 03/01/2015 12:20 PM EDT Narrative Resulting Agency Comment Spec In Lab Chepe Jackson MD CHEMISTRY ORDERABLES Performing Organization Address [facility] de Phone Number [employer]. * Sedimentation rate (03/01/2015 11:48 AM EDT) Sed Rate 6 0 - 20 mm/hr CERNER MILLENNIUM Blood specimen (specimen) 03/01/2015 11:48 AM EDT 03/01/2015 12:20 PM EDT Narrative Resulting Agency Comment Spec In Lab Chepe Jackson MD HEMATOLOGY ORDERABLE S Performing Organization Address [facility] de Phone Number [employer]. documented in this encounter Visit Diagnoses Diagnosis Ankylosing spondylitis documented in this encounter Care Teams Supply Chain Program Manager Relationship Specialty Start Date End Date Marcio Carranza MD [address] [place] [address] PCP - General 08/07/10 11/10/17 documented as of this encounter
--- OUTSIDE RECORDS SUMMARY | 2024-04-08 02:33 | XMS_ITS | Encounter Summary ---
Author Organization [facility] [place] [address] Care Team Providers Care Metal Tester Name Role Phone Marcio Carranza MD Primary Care Provider [phone] Reason for Visit * Reason Onset Date Comments Medication Refill 10/08/2012 Encounter Details Date Type Department Care Team (Late st Contact Info) Description 10/08/2012 Refill [place] [address] Jose Manuel Reynoso MD [address] [place] [address] [place] [address] Spondylitis Social History Tobacco Use Types Packs/Day Years [...] encounter Miscellaneous Notes * Telephone Encounter - Sindhu Arcos LPN - 10/09/2012 1:04 PM ESTFrom: Kim Funes To: Jose Manuel Reynoso MD Sent: 10/08/2012 7:21 PM EST Subject: Medication Renewal Request Original authorizing provider: JOSE MANUEL REYNOSO MD Kim Funes would like a refill of the following medications: adalimumab (HUMIRA) 40 mg/0.8 mL injection [JOSE MANUEL REYNOSO MD] Preferred pharmacy: [id number] Comment: documented in this encounter Plan of Treatment Upcoming Encounters Date Type Department Care Team (Late st Contact Info) Description 04/19/2024 10:00 AM EDT Hospital Encounter Non-[place]vasive [place] [address] Arrived 04/29/2024 9:50 AM EDT Appointment MRI at [place] [address] Luis Alfredo Velazquez MD [facility] [place] [address] 04/29/2024 9:50 AM EDT Appointment MRI at [place] [address] Luis Alfredo Velazquez MD [facility] [place] [address] 06/07/2024 2:30 PM EDT TH Visit (TeleHealth) Gastroenterology at [place] [address] Dajuan Rachel MD [facility] [place] [address] 07/02/2024 2:00 PM EDT Appointment Non-[place] [phone] Luis Alfredo Velazquez MD [facility] [place] [place] [address] 07/02/2024 4:40 PM EDT Office Visit Cardiology at [address] [address] Luis Alfredo Velazquez MD [facility] [place] [address] documented as of this encounter Visit Diagnoses Diagnosis Spondylitis Unspecified inflammatory spondylopathy documented in this encounter Care Teams Metal Tester Relationship Specialty Start Date End Date Marcio Carranza MD [address] [facility] [place] [address] PCP - General 08/07/10 11/10/17 documented as of this encounter
--- OUTSIDE RECORDS SUMMARY | 2024-04-08 02:33 | XMS_ITS | Encounter Summary ---
Author Organization [facility] [place] [address] Care Team Providers Care Reservation Sales Agent Name Role Phone Marcio Carranza MD Primary Care Provider [phone] Reason for Visit * Reason Comments Arthritis Encounter Details Date Type Department Care Team (Late st Contact Info) Description 09/14/2014 9:15 AM EST [place] [id number] Shola Whitlock, [facility] [place] [address] Ankylosing spondylitis of cervical region Discharge Disposition: [...] Sign Reading Time Taken Comments Blood Pressure 158/85 09/14/2014 9:24 AM EST Pulse 66 09/14/2014 9:24 AM EST Temperature - - Respiratory Rate 18 09/14/2014 9:24 AM EST Oxygen Saturation - - Inhaled Oxygen Concentration - - Weight 96.9 kg (213 lb 9.6 oz) 09/14/2014 9:24 A M EST Height 167.6 cm (5' 6) 09/14/2014 9:24 AM EST Body Mass Index 34.48 09/14/2014 9:24 AM EST documented in this encounter Progress Notes * Brittani Martinez DO - 09/21/2014 8:19 AM EST I was the attending physician supervising the resident in the above care. For the purposes of billing, the resident provided the care. * Shola Whitlock, - 09/14/2014 9:20 AM EST Rheumatology Fellow Outpatient Progress Note Rheumatologic Problem List 1. UC associated Ankylosing Spondylitis - Currently on Humira [id number] and SSZ - Symptoms of cervical and lumbar spine involvement - Also has erythema nodosum associated with UC - s/p left hip replacement back in 2005 PMH -GERD -MÉNDEZ HPI: Kim Perez is a 54 y.o. female returns today for f/u of UC related ankylosis. The patient in the past was undergoing evaluation for a skin lesion thought to be ertyhema nodosum although initially concern raised for infectious vs. Panniculitis. She has been back on Humira for 2 months and tolerating treatment well. She seems to have good control of her ankylosis symptoms with minimal pain or stiffness in her spine or joints. She has not had any recent infections on her current dose of Humira and SSZ. She is also followed by GI for her UC which also seems to be well controlled on her current regimen. She denies any fever/chills, no abd pain, no chest pain or sob. SHe is accompanied byher on this visit today and he also attests to the fact that his is doing quite well these days. ROS: A ROS was performed and negative [...] others reviewed in eDH Physical Exam: BP 158/85 Pulse 66 Resp 18 Ht 167.6 cm (5' 6) Wt 96.888 kg (213 lb 9.6 oz) BMI 34.49 kg/m2 General: AAOx3, NAD, pleasant HEENT: Mucous [...] normal throughout. DTRs are 2+ throughout. Skin: No active skin lesions at this time Extremities Shoulders: FROM, non-tender to palpation Elbows:FROM, (-)pain, (-)nodules Wrists: FROM, no swelling, non-tender Hands: No synovitis, no MCP compression tenderness, full claw and fist Hips: FROM Knees: (-)effusions, non-tender ROM Ankles: FROM, non-tender, no swelling Feet: no MTP compression tenderness Shobers: normal excursion Vascular: Pulses are equal in all extremities. Labs: See below Assessment: Kim Perez is a 54 y.o. 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 At this time all of her skin lesions are healed and she is back on Humira for the last 2 months without side effects. Her final skin path was c/w erythema nodosum which is seen with UC and she has had in the past. From a joint perspective and GI perspective she has good control of her symptoms. We will see her back in clinic in about 6 months to make sure she is feeling well. I will also check her labs today to make sure her body is tolerating current regimen. Plan: 1. UC related ankylosis - cont SSZ - cont Humira - check labs today esr/crp, cbc, cmt - rtc in 6 months (before I transition her care to another fellow) 2. Skin lesions thought to be erythema nodosum - followed by dermaotlogy - doing well and no active skin lesions since restarting humira Shola Whitlock D.O. Rheumatology Fellow +++Addendum+++ Results for KIM PEREZ ( ) as of 09/20/2014 21:16 Ref. Range 09/14/2014 10:12 WBC Latest Range: 4.0-10.0 x10(3)/mcL 7.2 RBC Latest Range: 3.93-5.22 x10(6)/mcL 5.33 (H) Hemoglobin Latest Range: 11.2-15.7 gm/dL 16.9 (H) Hematocrit Latest Range: 34.0-45.0 % 48.9 (H) MCV Latest Range: 79.0-94.0 fL 91.7 MCH Latest Range: 26.6-32.2 pg 31.7 MCHC Latest Range: 32.0-36.5 gm/dL 34.6 RDWSD Latest Range: 35.0-46.0 fL 44.0 RDWCV Latest Range: 10.9-14.4 % 13.2 Platelets Latest Range: 145-370 x10(3)/mcL 177 MPV Latest Range: 9.0-12.0 fL 11.5 Neutr Abs (ANC) Latest Range: 1.50-6.30 x10(3)/mcL 3.93 Neutrophils % No range found 54.5 Immature Gran % No range found 0.10 Lymphocytes % No range found 37.1 Monocytes % No range found 7.1 Eosinophils % No range found 0.8 Basophils % No range found 0.4 Melanie Gran Abs Latest Range: 0.00-0.05 x10(3)/mcL 0.01 Lymphocytes Abs Latest Range: 1.0-3.6 x10(3)/mcL 2.7 Monocyte Abs Latest Range: 0.2-1.0 x10(3)/mcL 0.5 Eosinophils Abs Latest Range: 0.0-0.5 x10(3)/mcL 0.1 Basophils Abs Latest Range: 0.0-0.2 x10(3)/mcL 0.0 Sed Rate Latest Range: 0-20 mm/hr 6 Sodium Latest Range: 135-145 mmol/L 143 Potassium Latest Range: 3.5-5.0 mmol/L 4.2 Chloride Latest Range: 98-107 mmol/L 102 CO2 Latest Range: 22-31 mmol/L 29 Anion Gap Latest Range: 5-15 mmol/L 12 BUN Latest Range: 8-18 mg/dL 19 (H) Creatinine Latest Range: 0.70-1.20 mg/dL 0.89 Estimated GFR Latest Range: >=60 >60 Glucose Lvl Latest Range: 60-199 mg/dL 211 (H) Calcium Latest Range: 8.5-10.5 mg/dL 10.2 Total Protein Latest Range: 6.4-8.3 gm/dL 7.9 Albumin Latest Range: 3.2-5.2 gm/dL 4.3 Total Bilirubin Latest Range: 0.2-1.3 mg/dL 0.4 Bili, Direct Latest Range: 0.0-0.3 mg/dL 0.1 Alk Phos Latest Range: 40-104 unit/L 117 (H) AST Latest Range: 0-30 unit/L 45 (H) ALT Latest Range: 0-30 unit/L 57 (H) CRP High Sens No range found 2.4 documented in this encounter Plan of Treatment Upcoming Encounters Date Type Department Care Team (Late st Contact Info) Description 04/19/2024 10:00 AM EDT Hospital Encounter Non[place] [address] Arrived 04/29/2024 9:50 AM [place]T [place] [address] Luis Alfredo Velazquez MD [facility] [place] [address] 04/29/2024 9:50 AM [place] [address] Luis Alfredo Velazquez MD [facility] [place] [address] 06/07/2024 2:30 PM EDT TH Visit (TeleHealth) [place] [address] Dajuan Rachel MD [facility] DR [place]STRO[place] [address] 07/02/2024 2:00 PM EDT Appointment Non[place] [address] Luis Alfredo Velazquez MD [facility] [place] [address] 07/02/2024 4:40 PM EDT Office Visit Cardiology at [address] [phone] Luis Alfredo Velazquez MD [facility] [place] [address] documented as of this encounter Procedures Procedure Name Priority Date/Time Associated Diagnosis Comments HEMOGRAM Routine 09/14/2014 10:12 AM EST Ankylosing spondylitis of cervical region DIFFERENTIAL, AUTOMATED Routine 09/14/2014 10:12 AM EST Ankylosing spondylitis of cervical region SEDIMENTATION RATE Routine 09/14/2014 10 :12 AM EST Ankylosing spondylitis of cervical region CBC (WITH DIFF) Routine 09/14/2014 10:12 AM EST Ankylosing spondylitis of cervical region CRP, CARDIAC RISK (HS CRP) Routine 09/14/2014 10:12 AM EST Ankylosing spondylitis of cervical region COMPREHENSIVE METABOLIC PANEL (NON-FASTING) Routine 09/14/2014 10:12 AM EST Ankylosing spondylitis of cervical region documented in this encounter Results * Differential, Automated (09/14/2014 10:12 AM EST) Neutrophils % 54.5 % CERNER MILLENNIUM Neutr Abs (ANC) 3.93 1.50 - 6.30 x10(3)/mcL CERNER MILLENNIUM Lymphocytes % 37.1 % CERNER MILLENNIUM Lymphocytes Abs 2.7 1.0 - 3.6 x10(3)/mcL CERNER MILLENNIUM Monocytes % 7.1 % CERNER MILLENNIUM Monocyte Abs 0.5 0.2 - 1.0 x10(3)/mcL CERNER MILLENNIUM Eosinophils % 0.8 % CERNER MILLENNIUM Eosinophils Abs 0.1 0.0 - 0.5 x10(3)/mcL CERNER MILLENNIUM Basophils % 0.4 % CERNER MILLENNIUM Basophils Abs 0.0 0.0 - 0.2 x10(3)/mcL CERNER MILLENNIUM Immature Gran % 0.10 % CERN ER MILLENNIUM Comment: Immature granulocytes(IG's)percentage and absolute count will include metamyelocytes, myelocytes, and promyelocytes. Blood smears from CBCs yielding IG's will be scanned manually for concordance. If this scan disagrees with the automated IG or if promyelocytes are noted, a manual differential will be performed. Melanie Gran Abs 0.01 0.00 - 0.05 x10(3)/mcL CERNER MILLENNIUM Blood specimen (specimen) 09/14/2014 10:12 AM EST 09/14/2014 10:20 AM EST Narrative Resulting Agency Comment Spec In Lab Brittani Martinez DO HEMATOLOGY ORDER EDUAR CERNER MILLENNIUM * (ABNORMAL) Hemogram (09/14/2014 10:12 AM EST) WBC 7.2 4.0 - 10.0 x10(3)/mcL CERNER MILLENNIUM RBC 5.33(H) 3.93 - 5.22 x10(6)/mcL CERNER MILLENNIUM Hemoglobin 16.9(H) 11.2 - 15.7 gm/dL CERNER MILLENNIUM Hematocrit 48.9(H) 34.0 - 45.0 % CERNER MILLENNIUM MCV 91.7 79.0 - 94.0 fL CERNER MILLENNIUM MCH 31.7 26.6 - 32.2 pg CERNER MILLENNIUM MCHC 34.6 32.0 - 36.5 gm/dL CERNER MILLENNIUM Platelets 177 145 - 370 x10(3)/mcL CERNER MILLENNIUM RDWSD 44.0 35.0 - 46.0 fL CERNER MILLENNIUM RDWCV 13.2 10.9 - 14.4 % CERNER MILLENNIUM MPV 11.5 9.0 - 12.0 fL CERNER MILLENNIUM Blood specimen (specimen) 09/14/2014 10:12 AM EST 09/14/2014 10:20 AM EST Narrative Resulting Agency Comment Spec In Lab Brittani Martinez DO HEMATOLOGY ORDER EDUAR CERNER MILLENNIUM * (ABNORMAL) Comprehensive metabolic panel (non-fasting) (09/14/2014 10:12 AM EST) Glucose Lvl 211(H) 60 - 199 mg/dL CERNER MILLENNIUM Comment:Diabetes: >=200 mg/d L plus symptoms BUN 19(H) 8 - 18 mg/dL CERNER MILLENNIUM Creatinine 0.89 0.70 - 1.20 mg/dL CERNER MILLENNIUM Comment: Please note that the pediatric reference intervals supplied above were not validated at [facility]. Results from pediatric patients should be interpreted [...] 5 - 15 mmol/L CERNER MILLENNIUM Calcium 10.2 8.5 - 10.5 mg/dL CERNER MILLENNIUM Total Protein 7.9 6.4 - 8.3 gm/dL CERNER MILLENNIUM Albumin 4.3 3.2 - 5.2 gm/dL CERNER MILLENNIUM AST 45(H) 0 - 30 unit/L CERNER MILLENNIUM ALT 57(H) 0 - 30 unit/L CERNER MILLENNIUM Alk Phos 117(H) 40 - 104 unit/L CERNER MILLENNIUM Total [...] the following links into your internet browser. [email or web address] Blood specimen (specimen) 09/14/2014 10:12 AM EST 09/14/2014 10:20 AM EST Narrative Resulting Agency Comment Spec In Lab Brittani Martinez DO CHEMISTRY [facility] CERTRU MILLJAKE * High Sensitivity CRP (09/14/2014 10:12 AM EST) CRP High Sens 2.4 mg/L CERNER MILLENNIUM Comment: Interpretations: 1) For [...] and Cardiovascular Disease. ??Circulation 2003; 107:499-511 2. Anaker PM. ??Clinical applications of C-reactive protein for cardiovascular disease detection and prevention. ??Circulation 2003; 107:363-369 Blood specimen (specimen) 09/14/2014 10:12 AM EST 09/14/2014 10:20 AM EST Narrative Resulting Agency Comment Spec In Lab Brittani Martinez DO CHEMISTRY ORDERA BLES [facility] * Sedimentation rate (09/14/2014 10:12 AM EST) Sed Rate 6 0 - 20 mm/hr CERNER MILLENNIUM Blood specimen (specimen) 09/14/2014 10:12 AM EST 09/14/2014 10:20 AM EST Narrative Resulting Agency Comment Spec In Lab Brittani Martinez DO HEMATOLOGY ORDER EDUAR Performing Organization Address City/[facility]/ZIP Co de Phone Number [facility] documented in this encounter Visit Diagnoses Diagnosis Ankylosing spondylitis of cervical region Ankylosing spondylitis documented in this encounter Care Teams Reservation Sales Agent Relationship Specialty Start Date End Date Marcio Carranza MD [address] [place] [address] PCP - General 08/07/10 11/10/17 documented as of this encounter
--- OUTSIDE RECORDS SUMMARY | 2024-04-08 02:33 | XMS_ITS | Encounter Summary ---
Author Organization [facility] Address [facility] [place] [address] Care Team Providers Care Manager Housekeeping Name Role Phone Kaylie Carranza MD Primary Care Provider +1 [phone] Reason for Visit * Reason Comments Follow-up Encounter Details Date Type Department Care Team (Late st Contact Info) Description 05/17/2014 3:30 PM EDT Follow-Up Dermatology at [facility] [address] [place] [phone] Kaylie Shaffer MD [facility] [address] [place] [address] Panniculitis (Primary Dx) Discharge Disposition: Home Social History Tobacco Use [...] as of this encounter Progress Notes * Yohana Rubalcava LPN - 07/22/2014 2:03 PM EST Unable to reach Kim Perez by telephone to discuss how she is doing. Message left for patient to return my call. YOHANA RUBALCAVA LPN * Cara Sharif MD - 05/19/2014 7:55 AM EDT I directly supervised Dr. Shaffer during this office visit. Dr. Shaffer presented the historyand physical exam to me. I then saw and examined this patient with Dr. Shaffer . We reviewed thehistory and pertinent details and I confirmed the physical findings. I agree with the details of the history and physical exam as documented in Dr. Shaffer's note. CARA SHARIF MD Staff Physician * Kaylie Shaffer MD - 05/17/2014 3:25 PM EDT DERMATOLOGY - ESTABLISHED PATIENT FOLLOW-UP Date of service: 05/17/2014 Kim Perez : 1960 Dermatology Resident Note: July Pack MD Chief Problem: Chief Complaint Patient presents with ??? Follow-up Ms. Kim Perez is a 54 y.o. female. This is an established patient, last seen by July Pack MD on 05/11/2014. HPI: Ms. Perez presents for follow-up of her panniculitis. Minimal change since last visit with . Biopsy was consistent with a septal and lobular panniculitis with neutrophilic microabscesses and a mixed inflammatory cell infiltrate concerning for infection versus inflammation in the setting of ankylosing spondylitis and ulcerative colitis. Denies fever, chills, or night sweats. No weight loss, appropriate appetite and energy level. Plan for rebiopsy today. Skin History: As above Psoriasis Medical History: Patient Active Problem List Diagnosis Code ??? Ulcerative colitis 556.9 ??? DIFFICULT AIRWAY ??? MÉNDEZ (nonalcoholic steatohepatitis) 571.8 ??? Lipid disorder 272.9 ??? Ankylosing spondylitis 720.0 ??? Hypertension 401.9 ??? GERD (gastroesophageal reflux disease) 530.81 Medications: Current Outpatient Prescriptions Medication Sig Dispense Refill ??? HUMIRA PEN 40 mg/0.8 mL PnKt INJECT 1 PEN (0.8 ML) UNDER THE SKIN EVERY 14 DAYS 2 kit 6 ??? triamcinolone (KENALOG) 0.1 % ointment Apply to affected areas of legs, arms, and buttocks twice a day for two weeks, , then take a week off. Avoid face, armpit, groin. 60 g 2 ??? clobetasol (TEMOVATE) 0.05 % external solution Apply to scalp twice a day for two weeks, then daily as needed. 50 mL 1 ??? desonide (DESOWEN) 0.05 % cream Mix with ketoconazole cream and apply to armpits, under breasts, under belly and in groin twice a day for two weeks, , then take a week off. 45 g 2 ??? ketoconazole (NIZORAL) 2 % cream Mix with desonide cream and apply to armpits, under breasts, under belly and in groin twice a day for two weeks, then take a week off. 45 g 2 ??? ursodiol (ACTIGALL) 300 mg capsule Take 1 capsule by mouth 3 times daily. 270 tablet 3 ??? atenolol-chlorthalidone (TENORETIC) 100-25 mg per tablet Take 0.5 tablets by mouth daily. ??? Calcium Carbonate-Vitamin D2 600-200 mg-unit Tab Take 1,200 mg by mouth 2 times daily. ??? Ferrous Fumarate 63 mg (20 mg Iron) Tab Take 65 mg by mouth daily. ??? fluticasone (FLONASE) 50 mcg/Actuation nasal [...] 2 times daily. ??? multivitamin (THERAGRAN) tablet ??? folic acid (FOLVITE) 1 mg tablet 1 MG = 1 Tablet(s), PO, Once daily ??? ascorbic acid (VITAMIN C) 1,000 mg tablet 1000MG, PO, Once daily ??? vitamin E 400 unit capsule 800UNIT, PO, Once daily Allergies: Allergies Allergen Reactions ??? Lodine (Etodolac) Itching ??? Amoxicillin-Pot Clavulanate Nausea And Vomiting Nausea/Vomiting, patient reported ??? Celebrex (Celecoxib) Rash ??? Cephalexin Nausea And Vomiting Nausea/Vomiting, Patient reported ??? Doxycycline Nausea And Vomiting Nausea/Vomiting, Patient reported ??? Ibuprofen chest pains, Patient reported Review of Systems: - General: Feels well. - Skin: As per HPI; no other skin concerns. Examination: - Constitutional: Patient was alert, well-appearing and in no noticeable distress. - Skin: An abbreviated skin exam was performed; this includes: bilateral lower legs Specific skin findings: 1. 1 cm tender nodules scattered on left anterior leg with surrounding edema and erythema Diagnosis/Assessment/Treatment Plan: 1. Septal and lobular panniculitis with neutrophilic microabscesses and a mixed inflammatory cell infiltrate - discussed challenge of inflammatory versus infectious nature with patient. Recommend repeat biopsy for sterile tissue culture for bacteria, fungus and afb. Patient agrees to this plan. Procedure: Skin biopsy by punch technique. Location: left medial ankle Discussed indications for the procedure and expectations including risks and benefits. Verbal consent obtained. Skin prep with alcohol. Local anesthesia: buffered 1% lidocaine with 1/100,000 epinephrine. A 4 mm punch biopsy to the level of the subcutis was performed. Wound closed with monofilament suture. There were no complications; the patient tolerated the procedure well. The wound was dressed. Post-procedure expectations (including discomfort management), wound care and activity restrictions were reviewed. Follow-up based on pathology results. Suture removal: 10-14 days Follow-up: RTC pending biopsy results. Instructed to call for questions or concerns. MAGAN GREGORY LPN. has performed the documentation for this encounter in the presence of and acting as a scribe for July Pack MD, Dermatology Resident I performed the above scribed service and agree with the accuracy of the documentation in this encounter. Kaylie Shaffer MD Resident in Dermatology [facility] Patient seen and evaluated with staff horse groomer: Cara Sharif MD Section of Dermatology [facility] documented in this encounter Plan of Treatment Upcoming Encounters Date Type Department Care Team (Late st Contact Info) Description 04/19/2024 10:00 AM EDT Hospital Encounter Non-Invasive Cardiology Lab [place] [phone] Arrived 04/29/2024 9:50 AM EDT Appointment MRI at [place] [phone] Luis Alfredo Velazquez MD [facility] [place] [address] 04/29/2024 9:50 AM EDT Appointment MRI at [place] [phone] Luis Alfredo Velazquez MD [facility] [place] [address] 06/07/2024 2:30 PM EDT TH Visit (TeleHealth) [place] [address] Dajuan Rachel MD [facility] DR GASTROENTER[place] [address] 07/02/2024 2:00 PM EDT Appointment Non-Invasive [place] [phone] Luis Alfredo Velazquez MD [facility] [place] [address] 07/02/2024 4:40 PM EDT Office Visit Cardiology at [address] [place] [address] Luis Alfredo Velazquez MD [facility] [place] [address] documented as of this encounter Procedures Procedure Name Priority Date/Time Associated Diagnosis Comments AFB CULTURE STAT 05/17/2014 4:14 PM EDT Panniculitis TISSUE CULTURE STAT 05/17/2014 4:14 PM EDT Panniculitis FUNGUS CULTURE Routine 05/17/2014 4:14 PM EDT documented in this encounter Results * Fungus culture (05/17/2014 4:14 PM EDT) Fungus Culture ? Patient Name: KIM PEREZ ?Ordered By: KAYLIE SHAFFER ? MR#: [id number] ?LOC: ??HDM ? /Sex: ??1960 (54 years), ? Female ? PROCEDURE: Fungus Culture ?SOURCE: Tissue ? COLLECTED: 05/17/2014 16:14 ? STARTED: 05/17/2014 16:56 ? FINAL REPORT ? Final Report ? Verified:2013 08:04 ? No Fungus isolated ? PRELIMINARY REPORT ? Preliminary Report ? Verified:2013 08:22 ? No Fungus isolated to date ? [facility] Tissue specimen (specimen) 05/17/2014 4:14 PM EDT 05/17/2014 4:55 PM EDT Narrative Resulting Agency Comment Spec In Lab Kaylie Shaffer MD MICROBIOLOGY - NERAL ORDERABLES [facility] * AFB culture Biopsy (05/17/2014 4:14 PM EDT) Acid Fast Bacilli Culture ? Patient Name: KIM PEREZ ?Ordered By: CARA SHARIF ? MR#: [id number] ?LOC: ??HDM ? /Sex: ??1960 (54 years), ? Female ? PROCEDURE: Acid Fast Bacilli Culture ?SOURCE: Biopsy ? COLLECTED: 05/17/2014 16:14 ? STARTED: 05/17/2014 16:53 ? STAINS / PREPARATIONS ? Acid Fast Stain Report ? Verified: 21:34 ? No Acid Fast Bacilli seen ? FINAL REPORT ? Final Report ? Verified: 10:17 ? No Acid Fast Bacilli isolated ? PRELIMINARY REPORT ? Preliminary Report ? Verified: 014 14:01 ? No acid fast bacilli isolated at 7 weeks. ? TYSHAWN RIKCETTS Specimen from unspecified body site obtained by biopsy (specimen) 05/17/2014 4:14 PM EDT 05/17/2014 4:53 PM EDT Narrative Resulting Agency Comment Spec In Lab Cara Sharif MD MICROBIOLOGY - GENER AL ORDERABLES [facility] * Tissue culture Leg (05/17/2014 4:14 PM EDT) Tissue Culture ? Patient Name: KIM PEREZ ?Ordered By: CARA SHARIF ? MR#: [id number] ?LOC: ??HDM ? /Sex: ??1960 (54 years), ? Female ? PROCEDURE: Tissue Culture ?SOURCE: Leg ? COLLECTED: 05/17/2014 16:14 ? STARTED: 05/17/2014 16:53 ? STAINS / PREPARATIONS ? Gram Stain Report ? Verified:05/17/20 14 17:41 ? Many White Blood Cells seen ? No microorganisms seen. ? FINAL REPORT ? Final Report ? Verified:05/21/20 14 13:40 ? No growth ? PRELIMINARY REPORT ? Preliminary Report ? Verified:05/18/20 14 08:40 ? No growth to date. ? CERNER MILLENNIUM Specimen from lower limb (specimen) 05/17/2014 4:14 PM EDT 05/17/2014 4:53 PM EDT Narrative Resulting Agency Comment Spec In Lab Cara Sharif MD MICROBIOLOGY - GENER AL ORDERABLES Performing Organization Address City/State/[facility] Co de Phone Number TYSHAWN RICKETTS documented in this encounter Visit Diagnoses Diagnosis Panniculitis- Primary Panniculitis, unspecified site documented in this encounter Care Teams Manager Housekeeping Relationship Specialty Start Date End Date Kaylie Carranza MD [address] [facility] [place] [address] PCP - General 08/07/10 11/10/17 documented as of this encounter
--- OUTSIDE RECORDS SUMMARY | 2024-04-08 02:33 | XMS_ITS | Encounter Summary ---
Author Organization [facility] [place] [address] Care Team Providers Care Cinder Worker Name Role Phone Marcio Carrazna MD Primary Care Provider [phone] [phone] Reason for Visit * Reason Comments Follow-up Encounter Details Date Type Department Care Team (Late st Contact Info) Description 08/19/2011 2:45 PM EST Follow-[place] [phone] Eden Reynoso MD [address] [place] [address] [place] [address] Spondylitis (Primary Dx) Discharge Disposition: Home Social History [...] Sign Reading Time Taken Comments Blood Pressure 128/81 08/19/2011 2:44 PM EST Pulse 60 08/19/2011 2:44 PM EST Temperature 36.6 ??C (97.9 ??F) 08/19/2011 2:44 PM ES T Respiratory Rate 16 08/19/2011 2:44 PM EST Oxygen Saturation 95% 08/19/2011 2:44 PM EST Inhaled Oxygen Concentration - - Weight 90.7 kg (200 lb) 08/19/2011 2:44 PM EST Height 167.6 cm (5' 6) 08/19/2011 2:44 PM EST Body Mass Index 32.28 08/19/2011 2:44 PM EST documented in this encounter Progress Notes * Eden Reynoso MD - 08/19/2011 3:43 PM EST Kim Funes is seen today for a regularly scheduled 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 She has a history of iritis and erythema nodosum. In addition to her ulcerative colitis, she has esophageal reflux disease, hypertension, a left total hip replacement in 2005, and steatohepatitis by liver biopsy 03/2010 for which she sees Dr. Chan here at [facility]. She reports that over the past six months she has felt very well. During her one month off during the summer, she put a new roof on the house. She has not had any erythema nodosum, uveitis, or GI symptoms. In short, she feels back to baseline after being off of TNF inhibitors for about six months. She has lost 5 pounds in weight walking to get to school on a daily basis and being active with her grandchildren. Her past medical history reveals that she had a sinus infection last month for which she was given azithromycin. She did not interrupt her adalimumab. She had laboratory test done today in preparation to see Dr. Chan later this Afternoon. Blood pressure 128/81, pulse 60, temperature 36.6 ??C (97.9 ??F), temperature source Oral, resp. rate 16, height 167.6 cm (5' 6), weight 90.719 kg (200 lb), SpO2 95.00%. On physical exam, Kim looks well and is accompanied by her . She has reduced flexion and extension of her neck and about 50% lateral rotation. Her occiput to wall distance is about 4 to 6 cm. She does have some reduced range of motion in the un-operated right hip, but has no other peripheral joint involvement. Her skin is clear. My impression is that Kim Funes is doing very well with her ulcerative colitis-associated spondylitis. We have again gone over the safety point for taking adalimumab, but I have asked her to schedule an appointment with me only if she is having problems. I did renew her Humira through her pharmacy and will plan to see her on a p.r.n. basis. documented in this encounter Plan of Treatment Upcoming Encounters Date Type Department Care Team (Late st Contact Info) Description 04/19/2024 10:00 AM EDT Hospital Encounter Non-[place] [address] Arrived 04/29/2024 9:50 AM [place] [phone] Luis Alfredo Velazquez MD [facility] [place] [address] 04/29/2024 9:50 AM [place] [phone] Luis Alfredo Velazquez MD [facility] [place] [address] 06/07/2024 2:30 PM EDT TH Visit (TeleHealth) [place] [address] Dajuan Rachel MD [facility] [place] [address] 07/02/2024 2:00 PM EDT Appointment Non-[place]vasive [place] [address] Luis Alfredo Velazquez MD [facility] [place] [address] 07/02/2024 4:40 PM EDT Office Visit Cardiology at [address] [address] Luis Alfredo Velazquez MD [facility] [place] [address] documented as of this encounter Visit Diagnoses Diagnosis Spondylitis- Primary Unspecified inflammatory spondylopathy documented in this encounter Care Teams Cinder Worker Relationship Specialty Start Date End Date Marcio Carranza MD [address] [place] [address] PCP - General 08/07/10 11/10/17 documented as of this encounter
--- OUTSIDE RECORDS SUMMARY | 2024-04-08 02:33 | XMS_ITS | Encounter Summary ---
Author Organization [facility] Address [facility] [place] [address] Care Team Providers Care Agents' Records Clerk Name Role Phone Marcio aCrranza MD Primary Care Provider [phone] [phone] Reason for Visit * Reason Onset Date Comments Medication Refill 06/06/2014 Encounter Details Date Type Department Care Team (Late st Contact Info) Description 06/06/2014 Refill Dermatology at [facility] [address] [place] [phone] July Pack MD [facility] [address] [place] [address] Scalp psoriasis (Primary Dx) Social History Tobacco Use Types [...] encounter Miscellaneous Notes * Telephone Encounter - Gabo Peters LPN - 06/06/2014 10:23 AM EDT Fax request received form [place], [place] requesting refill of Clobetasol solution. Patient last seen in clinic 05/17/2014 Refill prepared and forwarded to July Pack MD for approval. documented in this encounter Plan of Treatment Upcoming Encounters Date Type Department Care Team (Late st Contact Info) Description 04/19/2024 10:00 AM EDT Hospital Encounter Non-[place] [phone] Arrived 04/29/2024 9:50 AM EDT Appointment MRI at [address] Luis Alfredo Velazquez MD [facility] [place] [address] 04/29/2024 9:50 AM EDT Appointment MRI at [place] [phone] Luis Alfredo Velazquez MD [facility] [place] [address] 06/07/2024 2:30 PM EDT TH Visit (TeleHealth) [place] [address] Dajuan Rachel MD [facility] DR [place] [address] 07/02/2024 2:00 PM EDT Appointment Non-Invasive Cardiology Lab [place] [phone] Luis Alfredo Velazquez MD [facility] [place] [address] 07/02/2024 4:40 PM EDT Office Visit Cardiology at [address] [address] Luis Alfredo Velazquez MD [facility] [place] [address] documented as of this encounter Visit Diagnoses Diagnosis Scalp psoriasis- Primary Other psoriasis documented in this encounter Care Teams Agents' Records Clerk Relationship Specialty Start Date End Date Marcio Carranza MD [address] [place] [address] PCP - General 08/07/10 11/10/17 documented as of this encounter
--- OUTSIDE RECORDS SUMMARY | 2024-04-08 02:33 | XMS_ITS | Encounter Summary ---
Author Organization [facility] [place] [address] Care Team Providers Care Technical Services Representative Name Role Phone Marcio Carranza MD Primary Care Provider [phone] [phone] Encounter Details Date Type Department Care Team (Late st Contact Info) Description 08/24/2015 4:00 PM EST Office [place] [phone] Albert Saenz MD [facility] [place] [address] Ankylosing spondylitis Social History Tobacco Use Types [...] Sign Reading Time Taken Comments Blood Pressure 150/79 08/24/2015 3:46 PM EST Pulse 78 08/24/2015 3:46 PM EST Temperature 36.8 ??C (98.2 ??F) 08/24/2015 3:46 PM ES T Respiratory Rate - - Oxygen Saturation 98% 08/24/2015 3:46 PM EST Inhaled Oxygen Concentration - - Weight 97.1 kg (214 lb) 08/24/2015 3:46 PM EST Height 167.6 cm (5' 6) 08/24/2015 3:46 PM EST Body Mass Index 34.54 08/24/2015 3:46 PM EST documented in this encounter Progress Notes * Brittani Martinez DO - 08/24/2015 5:42 PM EST I have seen the patient and reviewed the resident's above history and I agree with the details as written. The assessment and plan were formulated in discussion with me and I agree with them as documented. * Albert Saenz MD - 08/24/2015 3:53 PM EST Rheumatology Fellow Outpatient Progress Note Rheumatologic [...] colo- 2010- Pancolitis changes. One polyp removed. ROS: A ROS was performed and negative [...] others reviewed in eDH Physical Exam: BP 150/79 mmHg Pulse 78 Temp(Src) 36.8 ??C (98.2 ??F) (Oral) Ht 167.6 cm (5' 6) Wt 97.07 kg (214 lb) BMI 34.56 kg/m2 SpO2 98% General: AAOx3, NAD, pleasant HEENT: Mucous membranes are moist, no oral mucosal ulcerations Neck: Supple, no lymphadenopathy, limited range of motion in all planes due to stiffness and pain. Cardiovascular: RR, (-)murmurs, rubs, or gallops. Lungs: Clear to auscultation bilaterally. (-)R/R/W Back: Nontender over the spine and costovertebral [...] equal in all extremities. Labs: Last 3 wbc, hgb, hct plt Recent Labs 03/01/15 1148 WBC 6.8 HGB 16.4* HCT 47.8* PLATELET 193 Last 3 Lytes Recent Labs 03/01/15 1148 NA 143 K 4.2 CL 102 CO2 29 BUN 18 CREATININE 0.85 Last 3 LFTs Recent Labs 03/01/15 1148 AST 51* ALT 64* ALKPHOS 82 BILITOT 0.4 BILIDIR 0.1 Last CRP, SEDRATE Recent Labs 03/01/15 1148 CRP 2.0 SEDRATE 6 Assessment: Kim Funes is a 55 y.o. 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 She is doing well on humia and SSZ. No new joint symptoms or extraarticular manifestations # Axial spondyloarthropathy Plan: - cont SSZ and Humira - labs today esr/crp. - Xrays- C-spine and L spine - rtc in 6 months documented in this encounter Plan of Treatment Upcoming Encounters Date Type Department Care Team (Late st Contact Info) Description 04/19/2024 10:00 AM EDT Hospital Encounter Non-Invasive Cardiology Lab [address] Arrived 04/29/2024 9:50 AM EDT Appointment MRI at [place] [address] Luis Alfredo Velazquez MD [facility] [place] [address] 04/29/2024 9:50 AM EDT Appointment MRI at [place] [address] Luis Alfredo Velazquez MD [facility] [place] [address] 06/07/2024 2:30 PM EDT TH Visit (TeleHealth) Gastroenterology at [address] Dajuan Rachel MD [facility] [place] [address] 07/02/2024 2:00 PM EDT Appointment Non-Invasive Cardiology Lab [place] [phone] Luis Alfredo Velazquez MD [facility] [place] [address] 07/02/2024 4:40 PM EDT Office Visit Cardiology at [place] [phone] Luis Alfredo Velazquez MD [facility] [address] [place] [place] [phone] documented as of this encounter Procedures Procedure Name Priority Date/Time Associated Diagnosis Comments SEDIMENTATION RATE Routine 08/24/2015 4: 45 PM EST Ankylosing spondylitis CRP, CARDIAC RISK (HS CRP) Routine 08/24/2015 4:45 PM EST Ankylosing spondylitis documented in this encounter Results * XR Cervical Spine 2 Or 3 Views (NR GENERIC) (08/24/2015 5:11 PM EST) Anatomical Region Laterality Modality C-spine N/A Digital Radiogra phy Impressions 08/24/2015 5:19 PM EST IMPRESSION: 1. ??There is apparent diffuse osteopenia. Correlation with DEXA evaluation may be of benefit. 2. ??Bilateral facet arthritic changes are seen at the C2-C7 levels. There is possible ankylosis of the C2-C3-C4 facets. Narrative 08/24/2015 5:19 PM EST EXAMINATION: XR CERVICAL SPINE 2 OR 3 VIEWS CLINICAL HISTORY: Ankylosing spondylitis TECHNIQUE: 3 views. COMPARISON: None FINDINGS: There is apparent diffuse osteopenia. No acute fractures are seen. Bilateral facet arthritic changes are seen at the C2-C7 levels. There is apparent ankylosis of the facet joints of C2-C3-C4. The intervertebral disc spacings and vertebral body heights appear adequately maintained. Vertebral body alignment appears to be within normal limits. The odontoid process and spinous processes appeared intact. Procedure Note Susan Samm Jose, DO - 08/24/2015 EXAMINATION: XR CERVICAL SPINE 2 OR 3 VIEWS CLINICAL HISTORY: Ankylosing spondylitis TECHNIQUE: 3 views. COMPARISON: None FINDINGS: There is apparent diffuse osteopenia. No acute fractures are seen.Bilateral facet arthritic changes are seen at the C2-C7 levels. There is apparent ankylosis of the facet joints of C2-C3-C4. The intervertebral discspacings and vertebral body heights appear adequately maintained. Vertebral bodyalignment appears to be within normal limits. The odontoid process and spinousprocesses appeared intact. IMPRESSION IMPRESSION: 1. There is apparent diffuse osteopenia. Correlation with DEXA evaluationmay be of benefit. 2. Bilateral facet arthritic changes are seen at the C2-C7 levels. Thereis possible ankylosis of the C2-C3-C4 facets. Brittani Martinez DO IMG DX ORDERABLE S * XR Lumbar Spine 2 Or 3 [...] Brittani Martinez DO IMG DX ORDERABLE S * High Sensitivity CRP (08/24/2015 4:45 PM EST) Pathologist [facility] CRP High Sens 1.8 mg/L [facility] Comment: Interpretations: 1) For accurate cardiac risk [...] and Cardiovascular Disease. ??Circulation 2003; 107:499-511 2. Ridker PM. ??Clinical applications of C-reactive protein for cardiovascular disease detection and prevention. ??Circulation 2003; 107:363-369 Blood specimen (specimen) 08/24/2015 4:45 PM EST 08/24/2015 4:48 PM EST Narrative Resulting Agency Comment Spec In Lab Brittani Martinez DO CHEMISTRY ORDERA BLES Performing Organization Address [facility] de Phone Number [facility] * Sedimentation rate (08/24/2015 4:45 PM EST) Pathologist [facility] Sed Rate 6 0 - 20 mm/hr [facility] Blood specimen (specimen) 08/24/2015 4:45 PM EST 08/24/2015 4:48 PM EST Narrative Resulting Agency Comment Spec In Lab Brittani Martinez DO HEMATOLOGY ORDER EDUAR Performing Organization Address [facility] Co de Phone Number [facility] documented in this encounter Visit Diagnoses Diagnosis Ankylosing spondylitis Ankylosing spondylitis Ankylosing spondylitis documented in this encounter Care Teams Technical Services Representative Relationship Specialty Start Date End Date Marcio Carranza MD [address] [place] [address] PCP - General 08/07/10 11/10/17 documented as of this encounter
--- OUTSIDE RECORDS SUMMARY | 2024-04-08 02:33 | XMS_ITS | Encounter Summary ---
Author Organization [facility] Address [facility] [place] [address] Care Team Providers Care Rebeamer Name Role Phone Marcio Carranza MD Primary Care Provider [phone] [phone] Reason for Visit * Reason Comments Psoriasis Encounter Details Date Type Department Care Team (Late st Contact Info) Description 07/26/2014 2:30 PM EST Follow-Up Dermatology at [facility] [address] [place] [address] July Pack MD [facility] DR [address] [place] [address] Psoriasis; Panniculitis Discharge Disposition: Home Social History Tobacco Use [...] as of this encounter Progress Notes * Cara Cartagena MD - 07/26/2014 3:25 PM EST I directly supervised Dr. Pack during this office visit. Dr. Pack presented the history and physical exam to me. I then saw and examined this patient with Dr. Pack. We reviewed the history and pertinent details and I confirmed the physical findings. I agree with the details of the history and physical exam as documented in Dr. Pack's note. CARA CARTAGENA MD Staff Physician * July Pack MD - 07/26/2014 2:50 PM EST DERMATOLOGY - ESTABLISHED PATIENT FOLLOW-UP Date of service: 07/26/2014 Kim Funes : 1960 Dermatology Resident Note: July Pack MD Chief Problem: Chief Complaint Patient presents with ??? Psoriasis Ms. Kim Funes is a 54 y.o. female. This is an established patient, last seen by Marcio Townsend MD on 05/17/2014. HPI: Ms. Funes presents for follow-up of panniculitis and psoriasis. she is better, when compared to last visit. Patient continues to use Humira (which she uses for ulcerative colitis) and reports improvement. She has continued with to use Triamcinolone once daily to any active lesions on the lowerlegs. She wears compression hose. She still has occasionally tenderness in 2 areas of the lower legs. Skin History: Medical History: Patient Active Problem List Diagnosis Code ??? Ulcerative colitis 556.9 ??? DIFFICULT AIRWAY ??? MÉNDEZ (nonalcoholic steatohepatitis) 571.8 ??? Lipid disorder 272.9 ??? Ankylosing spondylitis 720.0 ??? Hypertension 401.9 ??? GERD (gastroesophageal reflux disease) 530.81 Medications: Current Outpatient Prescriptions Medication Sig Dispense Refill ??? clobetasol (TEMOVATE) 0.05 % Solution Apply to scalp twice a day for two weeks, then daily as needed. 50 mL 1 ??? losartan (COZAAR) 50 mg Tablet Take 50 mg by mouth daily. ??? METOPROLOL SUCCINATE ORAL Take 100 mg by mouth daily. ??? HUMIRA PEN 40 mg/0.8 mL PnKt INJECT 1 PEN (0.8 ML) UNDER THE SKIN EVERY 14 DAYS 2 kit 6 ??? triamcinolone (KENALOG) 0.1 % ointment Apply to affected areas of legs, arms, and buttocks twice a day for two weeks, , then take a week off. Avoid face, armpit, groin. 60 g 2 ??? desonide (DESOWEN) 0.05 % cream Mix [...] No current facility-administered medications for this visit. Allergies: Allergies Allergen Reactions ??? Lodine [Etodolac] Itching ??? Amoxicillin-Pot Clavulanate Nausea And Vomiting Nausea/Vomiting, patient reported ??? Celebrex [Celecoxib] Rash ??? Cephalexin Nausea And Vomiting Nausea/Vomiting, Patient reported ??? Doxycycline Nausea And Vomiting Nausea/Vomiting, Patient reported ??? Ibuprofen chest pains, Patient reported Social History: Review of Systems: - General: Feels well. - Skin: As per HPI; no other skin concerns. Examination: - Constitutional: Patient was alert, well-appearing and in no noticeable distress. - Skin: An abbreviated skin exam was performed; this includes: bilateral lower legs Specific skin findings: 1. 2 pink plaques left anterior and anteromedial barba 2. No evidence of psoriasis on exam today Diagnosis/Assessment/Treatment Plan: 1. Resolving panniculitis- Pathology demonstrated septal and lobular panniculitis with neutrophilicmicroabscesses. Given that infectious work up (special stains and culture) were negative and she has a known strongassociation (ulcerative colitis), favor suppurative erythema nodosum ( presented at [facility]) Recommendations: As she still has tenderness at 2 areas, will increase steroid strength. Recommend compression stockings and elevation. Prescriptions: Clobetasol 0.05% ointment Apply to affected areas BID for 2 weeks Discussed potential side effects with chronic use: Glaucoma and cataracts if used on the face and atrophy and ulceration at other body sites. 2. Plaque & inverse psoriasis- under control with prn topicals - May continue prn Trimacinolone BID x 3-4 days - May continue prn Desonide BID x 3-4 days for intertriginous areas Follow-up: RTC in 8 weeks. Instructed to call for questions or concerns. MAGAN GREGORY LPN. has performed the documentation for this encounter in the presence of and acting as a scribe for July Pack MD, Dermatology Resident I performed the above scribed service and agree with the accuracy of the documentation in this encounter. July Pack MD Resident in Dermatology [facility] Patient seen and evaluated with staff breaker table worker: Cara Cartagena MD Section of Dermatology [facility] documented in this encounter Plan of Treatment Upcoming Encounters Date Type Department Care Team (Late st Contact Info) Description 04/19/2024 10:00 AM EDT Hospital Encounter Non-Invasive Cardiology Lab [place] [phone] Arrived 04/29/2024 9:50 AM EDT Appointment MRI at [address]1000 Luis Alfredo Velazquez MD [facility] [place] [address] 04/29/2024 9:50 AM EDT Appointment MRI at [place] [phone] Luis Alfredo Velazquez MD [facility] [place] [address] 06/07/2024 2:30 PM EDT TH Visit (TeleHealth) Gastroenterology at [address]1000 Dajuan Rachel MD [facility] [place]STROENTEROLOG[place] [address] 07/02/2024 2:00 PM EDT Appointment Non-Invasive Cardiology Lab [place] [phone] Luis Alfredo Velazquez MD [facility] [place] [address] 07/02/2024 4:40 PM EDT Office Visit Cardiology at [place] [phone] Luis Alfredo Velazquez MD [facility] [place] [address] documented as of this encounter Visit Diagnoses Diagnosis Psoriasis Other psoriasis Panniculitis Panniculitis, unspecified site documented in this encounter Care Teams Rebeamer Relationship Specialty Start Date End Date Marcio Carranza MD [address] [place] [address] PCP - General 08/07/10 11/10/17 documented as of this encounter
--- OUTSIDE RECORDS SUMMARY | 2024-04-08 02:33 | XMS_ITS | Encounter Summary ---
Author Organization [facility] [place] [address] Care Team Providers Care Umbrella Mender Name Role Phone Marcio Carranza MD Primary Care Provider [phone] [phone] Reason for Visit * Reason Onset Date Comments Medication Refill 04/02/2012 Encounter Details Date Type Department Care Team (Late st Contact Info) Description 04/02/2012 [place] [address] Eden Reynoso MD [address] [place] [address] [place] [address] Spondylitis Social History Tobacco Use Types Packs/Day [...] AM EDT Hospital Encounter Non-Invasive [place] [address] Arrived 04/29/2024 9:50 AM EDT Appointment MRI at [place] [phone] Luis Alfredo Velazquez MD [facility] [address] 04/29/2024 9:50 AM EDT Appointment MRI at [place] [phone] Luis Alfredo Velazquez MD [facility] [place] [address] 06/07/2024 2:30 PM EDT TH Visit (TeleHealth) Gastroenterology at [place] [phone] Dajuan Rachel MD [facility] [place] [address] 07/02/2024 2:00 PM EDT Appointment Non-Invasive Cardiology Lab [place] [address] Luis Alfredo Velazquez MD [facility] [place] [address] 07/02/2024 4:40 PM EDT Office Visit Cardiology at [address] [phone] Luis Alfredo Velazquez MD [facility] [place] [address] documented as of this encounter Visit Diagnoses Diagnosis Spondylitis Unspecified inflammatory spondylopathy documented in this encounter Care Teams Umbrella Mender Relationship Specialty Start Date End Date Marcio Carranza MD [address] [place] [address] PCP - General 08/07/10 11/10/17 documented as of this encounter
--- OUTSIDE RECORDS SUMMARY | 2024-04-08 02:33 | XMS_ITS | Encounter Summary ---
Author Organization [facility] [place] [address] Care Team Providers Care Client Support Analyst Name Role Phone Marcio Carranza MD Primary Care Provider +1 [phone] Reason for Visit * Reason Comments Follow-up Spondylitis; Ankylosing Encounter Details Date Type Department Care Team (Late st Contact Info) Description 02/21/2011 9:45 AM EDT [place] [phone] Eden Reynoso MD [address] [place] [address] [place] [address] Spondylitis (Primary Dx); Enteropathic arthropathy Discharge Disposition: Home Social History Tobacco [...] Sign Reading Time Taken Comments Blood Pressure 132/83 02/21/2011 9:53 AM EDT Pulse 66 02/21/2011 9:53 AM EDT Temperature 36.9 ??C (98.5 ??F) 02/21/2011 9:53 AM ED T Respiratory Rate - - Oxygen Saturation 96% 02/21/2011 9:53 AM EDT Inhaled Oxygen Concentration - - Weight 90.3 kg (199 lb) 02/21/2011 9:53 AM EDT Height - - Body Mass Index - - documented in this encounter Progress Notes * Eden Reynoso MD - 02/21/2011 2:43 PM EDT Kim Funes is seen for a regularly scheduled followup of her ulcerative colitis with spondylitis for which she is currently taking adalimumab. She has a history of iritis and previously was treated with sulfasalazine. In addition to her ulcerative colitis, she also has gastroesophageal reflux disease, hypertension, a left total hip arthroplasty in 2005, and steatohepatitis by liver biopsy in 03/2010 for which she is seeing Dr. Chan here at [facility]. She started on the Humira late last year and continues to find that she is doing well. She has no musculoskeletal pain. Her bowels are good, and she has developed no further erythema nodosum lesions. Her weight loss in September after a diagnosis of steatohepatitis was down about five pounds, but she has regained that weight at this time. 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 We talked briefly about her daughter's musculoskeletal complaints as well. On physical exam, Kim Funes looks well and is accompanied by her . I believe that she has some improved range of motion in the cervical spine especially with lateral rotation. She moves more easily around the office and does not need to turn her entire body to look to side. My impression is that Kim has had an excellent response to the Humira which she has continued to take on a regular basis. She does not seem to have any active erythema nodosum or bowel lesions. I planned to see the patient again when she sees Dr. Chan in gastroenterology. documented in this encounter Plan of Treatment Upcoming Encounters Date Type Department Care Team (Late st Contact Info) Description 04/19/2024 10:00 AM EDT Hospital Encounter Non-Invasive [place] [address] Arrived 04/29/2024 9:50 AM EDT Appointment MRI at [address] Luis Alfredo Velazquez MD [facility] [place] [address] 04/29/2024 9:50 AM EDT Appointment MRI at [place] [address] Luis Alfredo Velazquez MD [facility] [place] [address] 06/07/2024 2:30 PM EDT TH Visit (TeleHealth) Gastroenterology at [place] [address] Dajuan Rachel MD [facility] 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
--- OUTSIDE RECORDS SUMMARY | 2024-04-08 02:33 | XMS_ITS | Encounter Summary ---
Author Organization [facility] Address [facility] [place] [address] Care Team Providers Care Furniture Sander Name Role Phone Marcio Carranza MD Primary Care Provider [phone] [phone] Reason for Visit * Reason Comments Skin Check Encounter Details Date Type Department Care Team (Late st Contact Info) Description 04/18/2014 2:30 PM EDT Office Visit Dermatology at [facility] [address] [place] [address] July Pack MD [facility] [address] [address] Psoriasis (Primary Dx); Candidal intertrigo Discharge Disposition: Home Social History Tobacco Use [...] this encounter Patient Instructions * Patient Instructions* Mali Dupree LPN - 04/18/2014 2:35 PM EDT Your diagnosis today: Intertriginous (inverse) Psoriasis and Yeast infection To armpits, under breast, under belly and in groin: Rx: Desonide (Desowen) 0.05% cream mixed with Rx: Ketoconazole (Nizoral) 2% cream applied twice daily for two weeks, then daily for one week, then take a week off. To arms, legs, buttocks: Rx: Triamcinolone ointment 0.1% applied twice daily for two weeks, then daily as needed. Avoid face, armpits, groin. To scalp: RX: clobetasol (Temovate) 0.05% solution applied twice daily to scalp for two weeks documented in this encounter Progress Notes * Ruy Neff III, MD - 04/18/2014 9:22 PM EDT I directly supervised Dr. Pack during this office visit. Dr. Pack presented the history and physical exam to me. I then saw and examined this patient with Dr. Pack. We reviewed the history and pertinent details and I confirmed the physical findings. I agree with the details of the history and physical exam as documented in Dr. Pack's note. RUY NEFF III, MD Staff Physician * July Pack MD - 04/18/2014 2:15 PM EDT DERMATOLOGY - NEW PATIENT NOTE Date of service: 04/18/2014 Kim Funes : 1960 Dermatology Resident Note: July aPck MD Chief Problem: Chief Complaint Patient presents with ??? Skin Check Ms. Kim Funes is a 54 y.o. female. This is a new patient to me. Seen in consultation at the request of Marcio Carranza specifically for the evaluation and management of the above problem. Here today with her , Lucien. HPI: Ms. Funes presents for evaluation of rash present since this past January. Patient has had yeast infections under her breasts in the past, and presumed it was the same. Saw here PCP who advised her to keep the areas dry. She has been applying Shower to Shower powder. Reports the rash is painful and burning. Patient has history of ulcerative colitis and ankylosing spondylitis. She has been on Humira for years, with no complications. Past Skin History: eczema Medical History: Patient Active Problem List Diagnosis Code ??? Ulcerative colitis 556.9 ??? DIFFICULT AIRWAY ??? MÉNDEZ (nonalcoholic steatohepatitis) 571.8 ??? Lipid disorder 272.9 ??? Ankylosing spondylitis 720.0 ??? Hypertension 401.9 ??? GERD (gastroesophageal reflux disease) 530.81 Medications: Current Outpatient Prescriptions Medication Sig Dispense Refill ??? HUMIRA PEN 40 mg/0.8 mL PnKt INJECT 0.8 ML (1 PEN) SUBCUTANEOUSLY EVERY 14 DAYS 2 kit 6 ??? ursodiol (ACTIGALL) 300 mg capsule Take [...] reported ??? Ibuprofen chest pains, Patient reported Family History: No family h/o melanoma, or Non Melanoma Skin Cancer No family h/o atopy, psoriasis, or other skin disease Social/Occupational History: Review of Systems: General: Feels well Skin: As per HPI; no other skin concerns Examination: Constitutional: Patient was alert, well-appearing and in no noticeable distress. Skin: A full skin examination was performed. This includes the head, neck, face and scalp includingbehind the ears. The chest, abdomen, back, and axillae, as well as the arms, hands, palms, fingers.Legs, feet, toes and soles were also examined. Buttocks and breasts were also examined with patientconsent. Genitalia were not examined. Specific skin findings: 1. Smooth, red, sharply defined plaques with macerated surfaces noted flexural and intertriginous areas of gluteal fold, axillae, under breasts, groin. Some satellite papules noted on groin and underbreasts. - well-demarcated pink plaques with silver scale noted scalp and left conchal bowl, left lower leg,right buttocks Diagnosis/Assessment/Treatment Plan: 1. Intertriginous (inverse) Psoriasis and Plaque Psoriasis ( scalp, legs, buttocks). Superimposed nieves infection inguinal and breast areas. Discussed this diagnosis in-depth and relation of her other autoimmune conditions. Discussed controls Rx: Desonide (Desowen) 0.05% cream mixed with Rx: Ketoconazole (Nizoral) 2% cream applied to intertriginous areas twice daily for two weeks. Rx: Triamcinolone ointment 0.1% applied twice daily for two weeks, then daily as needed to lesions on legs, buttocks. Counseled patient to avoid face, armpits, groin. RX: clobetasol (Temovate) 0.05% solution applied twice daily to scalp for two weeks Discussed mechanical factors that make the skin environment suspectible to intertrigo. - Keep area dry. Can use blow-dryer on low setting. - Zeosorb AF powder daily. Follow-up: RTC in 6 weeks for follow up. Instructed to call for questions or concerns. MALI DUPREE LPN has performed the documentation for this encounter in the presence of and acting as a scribe for July Pack MD, Dermatology Resident I performed the above scribed service and agree with the accuracy of the documentation in this encounter. July Pack MD Resident in Dermatology [facility] Patient seen and evaluated with staff business records manager: Ruy Neff MD Section of Dermatology [facility] documented in this encounter Plan of Treatment Upcoming Encounters Date Type Department Care Team (Late st Contact Info) Description 04/19/2024 10:00 AM EDT Hospital Encounter Non-[place] [address] Arrived 04/29/2024 9:50 AM EDT [place] [address] Luis Alfredo Velazquez MD [facility] [place] [address] 04/29/2024 9:50 AM ED[place] [address] Luis Alfredo Velazquez MD [facility] [place] [address] 06/07/2024 2:30 PM EDT TH Visit (TeleHealth) [place] [phone] Dajuan Rachel MD [facility] [place] [address] 07/02/2024 2:00 PM EDT Appointment Non-[place] [address] Luis Alfredo Velazquez MD [facility] [place] [address] 07/02/2024 4:40 PM EDT Office Visit Cardiology at [address] [address] Luis Alfredo Velazquez MD [facility] [place] [address] documented as of this encounter Visit Diagnoses Diagnosis Psoriasis- Primary Other psoriasis Candidal intertrigo Candidiasis of skin and nails documented in this encounter Care Teams Furniture Sander Relationship Specialty Start Date End Date Marcio Carranza MD [address] [place] [address] PCP - General 08/07/10 11/10/17 documented as of this encounter
--- OUTSIDE RECORDS SUMMARY | 2024-04-08 02:33 | XMS_ITS | Encounter Summary ---
Author Organization [facility] [place] [address] Care Team Providers Care Devops Engineer Name Role Phone Marcio Carranza MD Primary Care Provider [phone] -[phone] Encounter Details Date Type Department Care Team (Late st Contact Info) Description 06/03/2014 Telephone [place] [phone] Cherrie Augustine LPN Social History Tobacco Use Types Packs/Day Years [...] encounter Miscellaneous Notes * Telephone Encounter - Cherrie Augustine LPN - 06/03/2014 3:07 PM EDT Kim called and said she was seen at [facility] today and they told her she could go back on her Humira and she was questing if she should because she is on an ATB for an ear infection. Called and spoke with Kim and let her know not to restart the Humira until she is off the ATB andshe is symptom free. Pt agreed and verbalized understanding. documented in this encounter Plan of Treatment Upcoming Encounters Date Type Department Care Team (Late st Contact Info) Description 04/19/2024 10:00 AM EDT Hospital Encounter Non-Invasive Cardiology Lab [place] [phone] Arrived 04/29/2024 9:50 AM EDT Appointment MRI at [address] Luis Alfredo Velazquez MD [facility] [place] [address] 04/29/2024 9:50 AM EDT Appointment MRI at [place] [phone] Luis Alfredo Velazquez MD [facility] [place] [address] 06/07/2024 2:30 PM EDT TH Visit (TeleHealth) Gastroenterology at [place] [phone] Dajuan Rachel MD [facility] [place] [address] 07/02/2024 2:00 PM EDT Appointment Non-Invasive Cardiology Lab [place] [phone] Luis Alfredo Velazquez MD [facility] [place] [address] 07/02/2024 4:40 PM EDT Office Visit Cardiology at [place] [phone] Luis Alfredo Velazquez MD [facility] [place] [address] documented as of this encounter Visit Diagnoses Not on filedocumented in this encounter Care Teams Devops Engineer Relationship Specialty Start Date End Date Marcio Carranza MD [address] [facility] [address] PCP - General 08/07/10 11/10/17 documented as of this encounter
--- OUTSIDE RECORDS SUMMARY | 2024-04-08 02:33 | XMS_ITS | Encounter Summary ---
Author Organization [facility] Address [facility] [place] [address] Care Team Providers Care Hot Roll Laminator Name Role Phone Marcio Carranza MD Primary Care Provider [phone] [phone] Reason for Visit * Reason Onset Date Comments Medication Refill 09/19/2011 Encounter Details Date Type Department Care Team (Late st Contact Info) Description 09/19/2011 [place] [address] Marc Chan MD [facility] DR [place] [address] Social History Tobacco Use Types Packs/Day Years [...] AM EDT Hospital Encounter Non-[place] [address] Arrived 04/29/2024 9:50 AM EDT Appointment MRI at [place] [address] Luis Alfredo Velazquez MD [facility] [place] [address] 04/29/2024 9:50 AM EDT Appointment MRI at [place] [address] Luis Alfredo Velazquez MD [facility] [place] [address] 06/07/2024 2:30 PM EDT TH Visit (TeleHealth) Gastroenterology at [place] [address] Dajuan Rachel MD [facility] DR [place] [address] 07/02/2024 2:00 PM EDT Appointment Non-Invasive Cardiology Lab [place] [address] Luis Alfredo Velazquez MD [facility] [place] [address] 07/02/2024 4:40 PM EDT Office Visit Cardiology at [place] [phone] Luis Alfredo Velazquez MD [facility] [place] [address] documented as of this encounter Visit Diagnoses Not on filedocumented in this encounter Care Teams Hot Roll Laminator Relationship Specialty Start Date End Date Marcio Carranza MD [address] [place] [address] PCP - General 08/07/10 11/10/17 documented as of this encounter
--- OUTSIDE RECORDS SUMMARY | 2024-04-08 02:33 | XMS_ITS | Encounter Summary ---
Author Organization [facility] [address] Care Team Providers Care Classification Case Manager Name Role Phone Marcio Carranza MD Primary Care Provider [phone] [phone] Reason for Visit * Reason Comments Medication Refill Encounter Details Date Type Department Care Team (Late st Contact Info) Description 05/03/2014 Refill [place] [address] Eden Reynoso MD [address] [place] [address] [place] [address] Social History Tobacco Use Types Packs/Day Years [...] Telephone Encounter - Alex Rodriguez RN - 05/04/2014 8:53 AM EDT Kim needs a new provider for Rheumatology. She follows up on a PRN basis but has not been seen since 2010. documented in this encounter Plan of Treatment Upcoming Encounters Date Type Department Care Team (Late st Contact Info) Description 04/19/2024 10:00 AM EDT Hospital Encounter Non[place] [address] Arrived 04/29/2024 9:50 AM EDT Appointment MRI at [address] Luis Alfredo Velazquez MD [facility] [place] [address] 04/29/2024 9:50 AM [place] [address] Luis Alfredo Velazquez MD [facility] [place] [address] 06/07/2024 2:30 PM EDT TH Visit (TeleHealth) Gastroenterology at [place] [address] Dajuan Rachel MD [facility] [place] [address] 07/02/2024 2:00 PM EDT Appointment Non[place] [address] Luis Alfredo Velazquez MD [facility] [place] [address] 07/02/2024 4:40 PM EDT Office Visit Cardiology at [place] [phone] Luis Alfredo Velazquez MD [facility] [place] [address] documented as of this encounter Visit Diagnoses Not on filedocumented in this encounter Care Teams Classification Case Manager Relationship Specialty Start Date End Date Marcio Carranza MD [address] [place] [address] PCP - General 08/07/10 11/10/17 documented as of this encounter
--- OUTSIDE RECORDS SUMMARY | 2024-04-08 02:33 | XMS_ITS | Encounter Summary ---
Author Organization [facility] Address [facility] [place] [address] Care Team Providers Care Biodiesel Operations Manager Name Role Phone Marcio Carranza MD Primary Care Provider [phone] [phone] Encounter Details Date Type Department Care Team (Late st Contact Info) Description 07/25/2014 Telephone Dermatology at [facility] [address] [place] [address] Macrio Townsend MD [facility] [address] [place] [address] Social History Tobacco Use Types Packs/Day Years [...] encounter Miscellaneous Notes * Telephone Encounter - Mali Dupree LPN - 07/27/2014 9:17 AM EST Chart review shows patient had an office visit with Dr. Pack 07/26/14 and her concerns were addressed at that time. MALI DUPREE LPN * Telephone Encounter - Mali Dupree LPN - 07/25/2014 2:07 PM EST Unable to reach Kim Funes by telephone to discuss her condition. Message left for patient to return my call. MALI DUPREE LPN * Telephone Encounter - Olivia Bell - 07/25/2014 10:11 AM EST KRISTIAN PT Pt returned your call from 08/01/14 (see note from 05/17/14 Kristian) - please call her at [phone]. Leena Baker documented in this encounter Plan of Treatment Upcoming Encounters Date Type Department Care Team (Late st Contact Info) Description 04/19/2024 10:00 AM EDT Hospital Encounter Non-Invasive [place] [address] Arrived 04/29/2024 9:50 AM EDT [place] [address] Luis Alfredo Velazquez MD [facility] [place] [address] 04/29/2024 9:50 AM EDT [place] [address] Luis Alfredo Velazquez MD [facility] [place] [address] 06/07/2024 2:30 PM EDT TH Visit (TeleHealth) [place] [address] Dajuan Rachel MD [facility] [place] [address] 07/02/2024 2:00 PM EDT Appointment Non-Invasive Cardiology Lab [place] [phone] Luis Alfredo Velazquez MD [facility] [place] [address] 07/02/2024 4:40 PM EDT Office Visit Cardiology at [address] [phone] Luis Alfredo Velazquez MD [facility] [place] [address] documented as of this encounter Visit Diagnoses Not on filedocumented in this encounter Care Teams Biodiesel Operations Manager Relationship Specialty Start Date End Date Marcio Carranza MD [address] [place] [address] PCP - General 08/07/10 11/10/17 documented as of this encounter
--- OUTSIDE RECORDS SUMMARY | 2024-04-08 02:33 | XMS_ITS | Encounter Summary ---
Author Organization [facility] [place] [address] Care Team Providers Care Police Commissioner Name Role Phone Marcio Carranza MD Primary Care Provider [phone] -[phone] Reason for Visit * Reason Comments Medication Refill Encounter Details Date Type Department Care Team (Late st Contact Info) Description 04/22/2013 [place] [phone] dEen Reynoso MD [address] [place] [address] [place] [address] Social History Tobacco Use Types Packs/Day Years [...] AM EDT Hospital Encounter Non-[place] [address] Arrived 04/29/2024 9:50 AM EDT Appointment MRI at [place] [address] Luis Alfredo Velazquez MD [facility] [place] [address] 04/29/2024 9:50 AM EDT Appointment MRI at [place] [address] Luis Alfredo Velazquez MD [facility] [place] [address] 06/07/2024 2:30 PM EDT TH Visit (TeleHealth) Gastroenterology at [address] Dajuan Rachel MD [facility] [place] [address] 07/02/2024 2:00 PM EDT Appointment Non-Invasive Cardiology Lab [place] [address] Luis Alfredo Velazquez MD [facility] [place] [address] 07/02/2024 4:40 PM EDT Office Visit Cardiology at [place] [phone] Luis Alfredo Velazquez MD [facility] [place] [address] documented as of this encounter Visit Diagnoses Not on filedocumented in this encounter Care Teams Police Commissioner Relationship Specialty Start Date End Date Marcio Carranza MD [address] [place] [address] PCP - General 08/07/10 11/10/17 documented as of this encounter
--- OUTSIDE RECORDS SUMMARY | 2024-04-08 02:33 | XMS_ITS | Encounter Summary ---
Author Organization Formerly [facility] Address [facility] [place] [address] Care Team Providers Care Safety Advisor Name Role Phone Marcio Carranza MD Primary Care Provider [phone] Reason for Visit * Reason Comments Follow-up Encounter Details Date Type Department Care Team (Late st Contact Info) Description 05/11/2014 8:20 AM EDT Office Visit Dermatology at [facility] [address] [place] [phone] Juyl Dumont MD [facility] [place] [address] Neoplasm of unspecified nature of bone, soft tissue, and skin (Primary Dx) Discharge Disposition: Home Social History [...] encounter Patient Instructions * Patient Instructions* Mali Zuñiga LPN - 05/11/2014 8:58 AM EDT Treatment and Wound Care Instructions Your treatment today: You have had a punch biopsy of your skin, which is a removal of tissue for examination under a microscope. There are stitches in the wound that will need to be removed in 7-10 days. If bleeding occurs, hold firm pressure against the wound for 15 minutes. If bleeding continues, calls the office or go to your local emergency room. Please allow 1-2 weeks for the biopsy results to return. Your physician or nurse will contact you with the results by phone or letter; follow-up will be discussed at that time. Wound Care Instructions: You will need to keep the dressing placed over the wound dry and intact for 24 hours. Afterwards, perform the following wound care daily until your stitches are removed: ?? Wash your hands before changing the dressing. ?? Remove the bandage and clean the area with mild soap and water, then gently pat the area dry. ?? Apply a small amount of Vaseline to the area, then cover the wound with a band-aid. Change your dressing daily until the wound is fully healed. ?? A small amount of yellow drainage is part of normal healing. You might notice some redness around the edge of the wound. This is normal. ?? Please contact the office you you notice any of the following signs of infection: increased tenderness, pain, drainage, or redness that becomes hot or hard around the wound. If you have further questions or concerns, please call the office at [phone]. If it is after 5PM, or a holiday or weekend, please call [phone] and ask for the Senior Front End Developer on-call. documented in this encounter Progress Notes * Haley Soto MD - 05/13/2014 12:00 PM EDT I directly supervised Dr. Dumont during this office visit. Dr. Dumont presented the history and physical exam to me. I then saw and examined this patient with Dr. Dumont. We reviewed the history and pertinent details and I confirmed the physical findings. I agree with the details of the history and physical exam as documented in Dr. Dumont's note. HALEY SOTO MD Staff Physician * July Dumont MD - 05/11/2014 8:30 AM EDT Images from the original note were not included. DERMATOLOGY - ESTABLISHED PATIENT FOLLOW-UP Date of service: 05/11/2014 Jennifer Funes : 1960 Dermatology Resident Note: July Dumont MD Chief Problem: Chief Complaint Patient presents with ??? Follow-up Ms. Jennifer Funes is a 54 y.o. female. This is an established patient to me, last seen on 04/18/2014. HPI: Ms. Funes presents for a new rash. Patient reports that she has been applying the TAC ointmentto good effect everywhere as instructed for her psoriasis. Patient states that on 04/19 she applied it to her left lower leg under compression stockings before going to work. She removed them after work, and reports that the stocking pulled off some of the psoriasis plaque, which subsequently bled. Patient reports that the surrounding tissue and further down the leg to the ankle turned red and feels tight. She discontinued the TAC to the affected area. Denies having this reaction anywhere else on her body. At that time she also noticed new tender nodules on the left lower leg. Denies fever, chills, malaise. Saw her PCP who diagnosed her with cellulitis. Took a 3-day course of cefuroxime axetil, then was switched to sulfamethoxazole, which she finished on Friday. She statesthe antibiotics decreased the surrounding redness and swelling, but still has tender nodules, some swelling and pain of the left lower leg. She stopped her Humira ( for Ulcerative colitis & ankylosing spondylitis) about 1 month ago due to this presumed cellulitis. Skin History: Psoriasis,- scalp, intertriginous, legs Mali intertrigo Medical History: Patient Active Problem List Diagnosis [...] abbreviated skin exam was performed; this includes: lower extremities Specific skin findings: 1. Approximately 1 cm tender nodules scattered on left anterior leg with surrounding edema and erythema x 1 month, A few scattered psoriatic plaques on left and right leg -SUPRIYA negative for fungal elements Photo documentation obtained with patient consent. Diagnosis/Assessment/Treatment Plan: 1. 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 May need additional biopsy for tissue culture if H&E suspicious for infection. ?? Procedure: Skin biopsy by punch technique. Location: left anterior lower leg Discussed indications for the procedure and expectations [...] results. Suture removal: 10-14 days Follow-up: RTC based on pathology. Instructed to call for questions or concerns. MALI ZUÑIGA LPN. has performed the documentation for this encounter in the presence of and acting as a scribe for July Dumont MD, Dermatology Resident I performed the above scribed service and agree with the accuracy of the documentation in this encounter. July Dumont MD Resident in Dermatology [facility] Patient seen and evaluated with staff synchronizer: Haley Soto MD Section of Dermatology [facility] documented in this encounter Plan of Treatment Upcoming Encounters Date Type Department Care Team (Late st Contact Info) Description 04/19/2024 10:00 AM EDT Hospital Encounter Non-Invasive Cardiology Lab [place] [phone] Arrived 04/29/2024 9:50 AM EDT Appointment MRI at [place] [phone] Luis Alfredo Velazquez MD [facility] [place] [address] 04/29/2024 9:50 AM EDT Appointment MRI at [place] [phone] Luis Alfredo Velazquez MD [facility] [place] [address] 06/07/2024 2:30 PM EDT TH Visit (TeleHealth) Gastroenterology at [place] [phone] Dajuan Rachel MD [facility] [place] [address] 07/02/2024 2:00 PM EDT Appointment Non-Invasive Cardiology Lab [place] [phone] Luis Alfredo Velazquez MD [facility] [place] [address] 07/02/2024 4:40 PM EDT Office Visit Cardiology at [address] [place] [address] Luis Alfredo Velazquez MD [facility] [place] [address] documented as of this encounter Procedures Procedure Name Priority Date/Time Associated Diagnosis Comments SPECIMEN TO PATHOLOGY (NON-OR) Routine 05/11/2014 9:29 AM EDT Neoplasm of unspecified nature of bone, soft tissue, and skin SURGICAL PATHOLOGY REPORT Routine 05/11/2014 9:29 AM EDT documented in this encounter Results * Surgical Pathology Report (05/11/2014 9:29 AM EDT) FINAL DIAGNOSIS (AP) ? [facility] ? Provider: ?? JULY DUMONT ? Pt. Name: ?? ANA, KATHY L ? Acc #: ?[id number] ? Pt. ? Col Date: ?? 05/11/2014 ? /Sex: ?1960,(54 years),Female ? Rec Date: ?? 05/11/2014 ? LOC: ?[facility] ? SURGICAL PATHOLOGY ? ---Pathologic Diagnosis--- ? Skin, left anterior lower leg, punch biopsy: ?Septal and lobular panniculitis with neutrophilic microabscesses and a ? mixed inflammatory cell infiltrate. See comment. ? CR-0 ? 05/12/14 ? [facility] ? 05/13/14 Verified by: ? Jayshree HYMAN, Luiz Davenport ? Dermatopathologist ? (Electronic Signature) ? The attending pathologist whose signature appears on this report has ? reviewed all diagnostic slides and has edited the gross and/or ? microscopic portion of the report in rendering the final pathologic ? diagnosis. ? ---Comment--- ? These changes are unusual and difficult to categorize. ??In light of the ? patient's history of ulcerative colitis, this could represent a rare ? suppurative variant of erythema nodosum, however, these findings are ? unusual and not diangostic. ??Although special stains for bacterial, ? mycobacterial and fungal organisms (Gram, AFB, GMS, PAS/f) are negative, an ? infectious process cannot be excluded. ??If an infectious process is a ? diagnostic consideration, correlation with culture studies is strongly ? recommended. In the appropriate clinical setting, the histologic ? differential diagnosis could includes another form of neutrophilic ? panniculitis, such as a panniculitis bacterid, a manifestation of Behcet's ? disease, a form of erythema induratum or alpha-1 antitrypsin deficiency ? panniculitis. ??Clinicopathologic correlation is recommended. ??This case has ? been reviewed by Drs. Epperson and Noni, who concur with the diagnosis. ? Multiple deeper levels have been examined. ? ---Microscopic Description--- ? Special stains are performed. ? Block ? Stain ? Result ( Positive / Negative ) ? A1 ?PAS/f, GMS ?No organisms identified. ? AFB ? No organisms identified. ? Gram ?No organisms identified. ? ---Gross Description--- ? A - Labeled/Fixative: Patient's name, formalin. ? [facility] ? Provider: ?? JULY DUMONT ? Pt. Name: ?? ANAJENNIFER ? Acc #: ?[id number] ? Pt. ? Col Date: ?? 05/11/2014 ? /Sex: ?1960,(54 years),Female ? Rec Date: ?? 05/11/2014 ? LOC: ?[facility] ? SURGICAL PATHOLOGY ? Quantity/Size: Single, 0.4 cm punch excised to depth of 0.6 cm. ? Tissue Description: Peters skin. ? Sections/Processing: Bisected. (T1) ??cjl ? ---Clinical Information--- ? Specimen Submitted: ? A - Skin, left anterior lower leg, punch ? Clinical History: ? Approximately 1 cm tender nodules scattered on left anterior leg with ? surrounding edema and erythema times one month ? Clinical Diagnosis: ? Erythema nodosum versus other panniculitis rule out infectious process such ? as sporotrichosis 05/13/2014 12:42 PM EDT [facility] 05/11/2014 9:29 AM EDT July Dumont MD PATHOLOGY/CYTOLOGY O RDERABLES [facility] [place] [address] * Specimen to Pathology (NON-OR) (05/11/2014 9:29 AM EDT) AP Specimen 05/11/2014 9:29 AM EDT 05/11/2014 9:29 AM EDT Narrative TYSHAWN RICKETTS - 05/11/2014 9:29 AM EDT Specimen requisition ordered. ??Separate Pathology report to follow Haley Soto MD PATHOLOGY/CYTOLOGY ORDERABLES Performing Organization Address City/[facility]/ZIP Co de Phone Number TYSHAWN RICKETTS documented in this encounter Visit Diagnoses Diagnosis Neoplasm of unspecified nature of bone, soft tissue, and skin- Primary documented in this encounter Care Teams Safety Advisor Relationship Specialty Start Date End Date Marcio Carranza MD [address] [place] [address] PCP - General 08/07/10 11/10/17 documented as of this encounter
--- OUTSIDE RECORDS SUMMARY | 2024-04-08 02:33 | XMS_ITS | Encounter Summary ---
Author Organization [facility] [place] [address] Care Team Providers Care Saxophone Teacher Name Role Phone Marcio Carranza MD Primary Care Provider [phone] Reason for Visit * Reason Onset Date Comments Medication Refill 03/17/2012 Encounter Details Date Type Department Care Team (Late st Contact Info) Description 03/17/2012 [place] [phone] Eden Reynoso MD [address] [place] [address] [place] [address] Social History Tobacco Use Types Packs/Day Years [...] AM EDT Hospital Encounter Non-Invasive [place] [phone] Arrived 04/29/2024 9:50 AM EDT Appointment MRI at [place] [phone] Luis Alfredo Velazquez MD [facility] [place] [address] 04/29/2024 9:50 AM EDT Appointment MRI at [place] [phone] Luis Alfredo Velazquez MD [facility] [place] [address] 06/07/2024 2:30 PM EDT TH Visit (TeleHealth) Gastroenterology at [place] [phone] Dajuan Rachel MD [facility] [place] [address] 07/02/2024 2:00 PM EDT Appointment Non-Invasive Cardiology Lab [place] [phone] Luis Alfredo Velazquez MD [facility] [place] [address] 07/02/2024 4:40 PM EDT Office Visit Cardiology at [address] [phone] Luis Alfredo Velazquez MD [facility] [place] [address] documented as of this encounter Visit Diagnoses Not on filedocumented in this encounter Care Teams Saxophone Teacher Relationship Specialty Start Date End Date Marcio Carranza MD [address] [place] [address] PCP - General 08/07/10 11/10/17 documented as of this encounter
--- OUTSIDE RECORDS SUMMARY | 2024-04-08 02:33 | XMS_ITS | Encounter Summary ---
Author Organization [facility] [place] [address] Care Team Providers Care Executive Advisor Name Role Phone Marcio Carranza MD Primary Care Provider [phone] Reason for Visit * Reason Comments Medication Refill Encounter Details Date Type Department Care Team (Late st Contact Info) Description 04/22/2013 [place] [phone] Eden Reynoso MD [address] [place] [address] [place] [address] Social History Tobacco Use Types Packs/Day Years [...] AM EDT Hospital Encounter Non-Invasive [place] [phone] Arrived 04/29/2024 9:50 AM EDT Appointment MRI at [place] [address] Luis Alfredo Velazquez MD [facility] [place] [address] 04/29/2024 9:50 AM EDT Appointment MRI at [place] [address] Luis Alfredo Velazquez MD [facility] [place] [address] 06/07/2024 2:30 PM EDT TH Visit (TeleHealth) Gastroenterology at [address] Dajuan Rachel MD [facility] [place] [address] 07/02/2024 2:00 PM EDT Appointment Non-Invasive Cardiology Lab [place] [address] Luis Alfredo Velazquez MD [facility] [place] [address] 07/02/2024 4:40 PM EDT Office Visit Cardiology at [place] [phone] Luis Alfredo Velazquez MD [facility] [place] [address] documented as of this encounter Visit Diagnoses Not on filedocumented in this encounter Care Teams Executive Advisor Relationship Specialty Start Date End Date Marcio Carranza MD [address] [place] [address] PCP - General 08/07/10 11/10/17 documented as of this encounter
--- OUTSIDE RECORDS SUMMARY | 2024-04-08 02:33 | XMS_ITS | Encounter Summary ---
Author Organization Formerly [facility] Address [facility] [place] [address] Care Team Providers Care Keno Writer/Runner Name Role Phone Marcio Carranza MD Primary Care Provider [phone] Encounter Details Date Type Department Care Team (Late st Contact Info) Description 04/20/2014 Telephone Dermatology at [facility] [address] [place] [phone] July Pack MD [facility] [address] [address] Social History Tobacco Use Types Packs/Day Years [...] Telephone Encounter - Mali Dupree LPN - 04/20/2014 3:34 PM EDT Spoke to patient who reports that she has been applying the TAC ointment to good effect everywhere as instructed. Patient states that yesterday she applied it to her left lower leg under compression stockings before going to work. She removed them after work, and reports that the stocking pulled off some of the psoriasis plaque, which subsequently bled. Patient reports that today the surrounding t issue and further down the leg to the ankle has turned red and feels tight. She reports it feels like a sunburn. Patient states she is not having this reaction anywhere else that she is applying the TAC. Advised patient discontinue the TAC to this area for now. Apply vaseline and keep covered with non-adherent dressing. Made a plan to touch base tomorrow morning to see how she is doing. Discussed warning signs that would be cause for concern, including deep throbbing, heat or increased redness, significant swelling. Patient aware to contact on-call electrical logging operator tonight if she worsens. MALI DUPREE LPN * Telephone Encounter - Mali Dupree LPN - 04/20/2014 3:09 PM EDT Patient calling to report that her leg is still red and hot. She is continuing to use the TAC to good effect on other areas of her body. Discussed patient coming in for a would check, waiting to see what happened over the next few days, or seeing her PCP for evaluation. Patient [place] 1[place]5 hours awayand prefers to start by contacting her PCP for evaluation. She will call with updates as appropriate. MALI DUPREE LPN * Telephone Encounter - Wai Mederos - 04/20/2014 3:03 PM EDT Was seen by on 04/18 was put on a medication that has now turned her leg red and sore to touch, asking if someone could call her back documented in this encounter Plan of Treatment Upcoming Encounters Date Type Department Care Team (Late st Contact Info) Description 04/19/2024 10:00 AM EDT Hospital Encounter Non-[place] [address] Arrived 04/29/2024 9:50 AM EDT Appointment MRI at [address] Luis Alfredo Velazquez MD [facility] [place] [address] 04/29/2024 9:50 AM EDT Appointment MRI at [place] [address] Luis Alfredo Velazquez MD [facility] [place] [address] 06/07/2024 2:30 PM EDT TH Visit (TeleHealth) Gastroenterology at [address] Dajuan Rachel MD [facility] [place] [address] 07/02/2024 2:00 PM EDT Appointment Non-Invasive Cardiology Lab [place] [phone] Luis Alfredo Velazquez MD [facility] [place] [address] 07/02/2024 4:40 PM EDT Office Visit Cardiology at [address] [phone] Luis Alfredo Velazquez MD [facility] [place] [address] documented as of this encounter Visit Diagnoses Not on filedocumented in this encounter Care Teams Keno Writer/Runner Relationship Specialty Start Date End Date Marcio Carranza MD [address] [place] [address] PCP - General 08/07/10 11/10/17 documented as of this encounter
--- OUTSIDE RECORDS SUMMARY | 2024-04-08 02:33 | XMS_ITS | Encounter Summary ---
Author Organization [facility] Address [facility] [place] [address] Care Team Providers Care Registered Nurse Maternity Name Role Phone Marcio Carranza MD Primary Care Provider [phone] Reason for Visit * Reason Comments Follow-up Encounter Details Date Type Department Care Team (Late st Contact Info) Description 09/26/2014 3:30 PM EST Follow-Up Dermatology at [facility] [address] [place] [phone] July Pack MD [facility] [address] [facility] [address] Resolved condition, follow-up; Erythema nodosum; Psoriasis Discharge Disposition: Home Social History Tobacco Use [...] as of this encounter Progress Notes * Alana Ferrera - 09/27/2014 12:30 PM EST I left a voicemail message for Kim Funes asking for a return phone call. This call is in regards to scheduling a follow up. * Ruy Neff III, MD - 09/26/2014 9:28 PM EST I was the supervising physician working with dermatology resident Dr. Pack in the dermatology clinic during this patient visit. The level of Resident supervision for this patient visit was indirect supervision with direct supervision immediately available. (definition: [facility] GME Policy Statement on Graduate Medical Education, Supervision of Graduate Medical Trainees) I was immediately available to Dr. Pack for questions and discussion regarding this visit. I have reviewed her encounter note details and level of service. RUY NEFF III, MD Staff Physician * July Pack MD - 09/26/2014 3:29 PM EST DERMATOLOGY - ESTABLISHED PATIENT FOLLOW-UP Date of service: 09/26/2014 Kim Funes : 1960 Dermatology Resident Note: July Pack MD Chief Problem: Chief Complaint Patient presents with ??? Follow-up Ms. Kim Funes is a 54 y.o. female. This is an established patient, last seen by me on 07/26/2014. HPI: Ms. Funes presents for follow-up of panniculitis, she is better, when compared to last visit. Patient states she applied Clobetasol BID for two weeks, then as needed. She states she is very happy with her improvement and has no skin concerns today. She states the lower extremity tender areas have resolved since using Clobetasol. No areas of psoriasis today. Patient notes that she also restarted Humira for ulcerative colitis about 2 months ago. Skin History: Panniculitis 05/11/2014 ---Pathologic Diagnosis--- Skin, left anterior lower leg, punch biopsy: Septal and lobular panniculitis with neutrophilic microabscesses and a mixed inflammatory cell infiltrate. Psoriasis- inverse, lower extremities Medical History: Patient Active Problem List Diagnosis Code ??? Ulcerative colitis 556.9 ??? DIFFICULT AIRWAY ??? MÉNDEZ (nonalcoholic steatohepatitis) 571.8 ??? Lipid disorder 272.9 ??? Ankylosing spondylitis 720.0 ??? Hypertension 401.9 ??? GERD (gastroesophageal reflux disease) 530.81 Medications: Current Outpatient Prescriptions Medication Sig Dispense Refill ??? hydrochlorothiazide (HYDRODIURIL) 12.5 mg Tablet Take 12.5 mg by mouth daily. ??? simvastatin (ZOCOR) 10 mg Tablet Take 10 mg by mouth nightly. ??? Adalimumab (HUMIRA PEN) 40 mg/0.8 mL Pen Injector Kit Inject 0.8 mLs subcutaneously every 14 days. 2 kit 6 ??? clobetasol (TEMOVATE) 0.05 % Solution Apply to scalp twice a day for two weeks, then daily as needed. 50 mL 1 ??? losartan (COZAAR) 50 mg Tablet Take 50 mg by mouth daily. ??? METOPROLOL SUCCINATE ORAL Take 100 mg by mouth daily. ??? triamcinolone (KENALOG) 0.1 % ointment Apply [...] pains, Patient reported Family History: No family history of melanoma or non-melanoma skin cancer No family history of atopy, psoriasis or other skin disease Social History: Review of Systems: - General: Feels well. - Skin: As per HPI; no other skin concerns. Examination: - Constitutional: Patient was alert, well-appearing and in no noticeable distress. - Skin: Focused exam of bilateral legs. An abbreviated skin exam was performed; this includes: Bilateral lower legs. Specific skin findings: 1. No evidence of panniculitis on b/l legs - xerosis of lower legs Diagnosis/Assessment/Treatment Plan: 1. Resolved panniculitis- - Pathology demonstrated septal and lobular panniculitis with neutrophilic microabscesses. Given that infectious work up (special stains and culture) were negative and she has a known strongassociation (ulcerative colitis), favor suppurative erythema nodosum ( presented [facility]) - Recommend daily heavy bland moisturizer and sensitive skin care for xerosis 2. Plaque & inverse psoriasis-none today - May continue prn Trimacinolone BID x 3-4 days for truncal/extremity lesions - May continue prn Desonide BID x 3-4 days for intertriginous areas Follow-up in three months. RTC in three months. Instructed to call for questions or concerns. Jeny Jones CMA. has performed the documentation for this encounter in the presence of and acting as a scribe for July Pack MD, Dermatology Resident I performed the above scribed service and agree with the accuracy of the documentation in this encounter. July Pack MD Resident in Dermatology [facility] staff shellac polisher: Ruy Neff MD Section of Dermatology [facility] documented in this encounter Plan of Treatment Upcoming Encounters Date Type Department Care Team (Late st Contact Info) Description 04/19/2024 10:00 AM EDT Hospital Encounter Non-Invasive Cardiology Lab [address] Arrived 04/29/2024 9:50 AM EDT Appointment MRI at [place] [phone] Luis Alfredo Velazquez MD [facility] [place] [address] 04/29/2024 9:50 AM [place] [phone] Luis Alfredo Velazquez MD [facility] [place] [place] [address] 06/07/2024 2:30 PM EDT TH Visit (TeleHealth) Gastroenterology at [place] [phone] Dajuan Rachel MD [facility] GASTROENTEROLOG[place] [address] 07/02/2024 2:00 PM EDT Appointment Non-[place] [phone] Luis Alfredo Velazquez MD [facility] [place] [address] 07/02/2024 4:40 PM EDT Office Visit Cardiology at [address] [phone] Luis Alfredo Velazquez MD [facility] [place] [place] [address] documented as of this encounter Visit Diagnoses Diagnosis Resolved condition, follow-up Other follow-up examination Erythema nodosum Psoriasis Other psoriasis documented in this encounter Care Teams Registered Nurse Maternity Relationship Specialty Start Date End Date Marcio Carranza MD [address] [place] [address] PCP - General 08/07/10 11/10/17 documented as of this encounter
--- OUTSIDE RECORDS SUMMARY | 2024-04-08 02:33 | XMS_ITS | Encounter Summary ---
Author Organization [facility] [place] [address] Care Team Providers Care Electrical Manufacturing Technician Name Role Phone Marcio Carranza MD Primary Care Provider [phone] Reason for Visit * Reason Onset Date Comments Medication Refill 09/15/2011 Encounter Details Date Type Department Care Team (Late st Contact Info) Description 09/15/2011 Refill [place] [address] Marc Chan MD [facility] DR [place]STROENTER[place] [address] Lipid disorder Social History Tobacco Use Types Packs/Day Years [...] encounter Miscellaneous Notes * Telephone Encounter - Marcella Norman RN - 09/19/2011 9:14 AM ESTFrom: KIM PEREZ To: Marc Chan MD Sent: Kayy Sep 15, 2011 10:13 AM Subject: Medication Renewal Request Original authorizing provider: MD Phuong DIASrochelle Graff Shantel would like a refill of the following medications: simvastatin (ZOCOR) 10 mg tablet [MARC CHAN MD] Preferred pharmacy: [id number] [facility] [address] [place] [address] Comment: I need Actigall 300 mg. renewed please. It is not listed above for renewal. Kim [address] [place] [address], [place] [phone] 1960 documented in this encounter Plan of Treatment Upcoming Encounters Date Type Department Care Team (Late st Contact Info) Description 04/19/2024 10:00 AM EDT Hospital Encounter Non-[place]vasive [place] [address] Arrived 04/29/2024 9:50 AM EDT Appointment MRI at [place] [phone] Luis Alfredo Velazquez MD [facility] [place] [address] 04/29/2024 9:50 AM EDT [place] [address] Luis Alfredo Velazquez MD [facility] [place] [address] 06/07/2024 2:30 PM EDT TH Visit (TeleHealth) Gastroenterology at [place] [phone] Dajuan Rachel MD [facility] [place]STR[place] [address] 07/02/2024 2:00 PM EDT Appointment Non-[place]vasive [place] [address] Luis Alfredo Velazquez MD [facility] [place] [address] 07/02/2024 4:40 PM EDT Office Visit Cardiology at [address] [phone] Luis Alfredo Velazquez MD [facility] [place] [address] documented as of this encounter Visit Diagnoses Diagnosis Lipid disorder Unspecified disorder of lipoid metabolism documented in this encounter Care Teams Electrical Manufacturing Technician Relationship Specialty Start Date End Date Marcio Carranza MD [address] [place] [address] PCP - General 08/07/10 11/10/17 documented as of this encounter
--- OUTSIDE RECORDS SUMMARY | 2024-04-08 02:33 | XMS_ITS | Encounter Summary ---
Author Organization [facility] [place] [address] Care Team Providers Care Deputy Editor In Chief Name Role Phone Marcio Devlin DO Primary Care Provider [phone] Reason for Visit * Reason Comments Medication Refill Encounter Details Date Type Department Care Team (Late st Contact Info) Description 04/06/2015 [place] [phone] Shola Whitlock, [facility] [place] [address] Social History Tobacco Use Types Packs/Day Years [...] AM EDT Hospital Encounter Non-Invasive [place] [address] Arrived 04/29/2024 9:50 AM EDT Appointment MRI at [place] [address] Luis Alfredo Velazquez MD [facility] [place] [address] 04/29/2024 9:50 AM EDT Appointment MRI at [address] Luis Alfredo Velazquez MD [facility] [place] [address] 06/07/2024 2:30 PM EDT TH Visit (TeleHealth) [place] [address] Dajuan Rachel MD [facility] [place] [address] 07/02/2024 2:00 PM EDT Appointment Non-Invasive Cardiology Lab [address] Luis Alfredo Velazquez MD [facility] [place] [address] 07/02/2024 4:40 PM EDT Office Visit Cardiology at [place] [phone] Luis Alfredo Velazquez MD [facility] [place] [address] documented as of this encounter Visit Diagnoses Not on filedocumented in this encounter Care Teams Deputy Editor In Chief Relationship Specialty Start Date End Date Marcio Devlin DO [address] [place] [address] PCP - General Family Medicine 11/11/17 documented as of this encounter
--- OUTSIDE RECORDS SUMMARY | 2024-04-08 02:33 | XMS_ITS | Encounter Summary ---
Author Organization [facility] [place] [address] Care Team Providers Care Insurance Attorney Name Role Phone Marcio Carranza MD Primary Care Provider [phone] Reason for Visit * Reason Comments Ulcerative Colitis Encounter Details Date Type Department Care Team (Late st Contact Info) Description 03/11/2011 10:00 AM EDT [place] [phone] Dajuan Rachel MD [facility] [place] [address] Ulcerative colitis (Primary Dx) Discharge Disposition: Home Social History [...] Sign Reading Time Taken Comments Blood Pressure 132/90 03/11/2011 9:49 AM EDT Pulse - - Temperature - - Respiratory Rate - - Oxygen Saturation - - Inhaled Oxygen Concentration - - Weight 89.8 kg (198 lb) 03/11/2011 9:49 AM EDT Height 167.6 cm (5' 6) 03/11/2011 9:49 AM EDT Body Mass Index 31.96 03/11/2011 9:49 AM EDT documented in this encounter Progress Notes * Dajuan Rachel MD - 03/11/2011 10:02 AM EDT PROBLEM LIST ??? Ulcerative colitis diagnosed in 1993 with L-sided disease Treated with sulfasalazine 2 g PO qd Humira started for ankylosing spondylitis ~04/2009 Colonoscopy 2001 - mild L sided disease Colonoscopy 09/19/08 (Dr. Shady Luz at [facility]). Areas of skip inflammation in transverse, descending, & rectosigmoid. Upon retroflexion, a rectal mucosal tear requiring subsequent admission for antibiotics. Biopsies: normal ileum, non- specific eosinophilic infiltration of the cecum, chronic inactive colitis in the descending, rectum, sigmoid, and rectum. The transverse colon revealed moderate to severe chronic, active colitis. Last colonoscopy 01/03/2011 (Dr. Marc Chan) - [id number] inflammation rectum to cecum with aninflammatory sigmoid polyp Ankylosing spondylitis diagnosed ~1991; also history of iritis ??? DIFFICULT AIRWAY ??? MÉNDEZ (nonalcoholic steatohepatitis) ??? Lipid disorder ??? Ankylosing spondylitis ??? Hypertension ??? GERD (gastroesophageal reflux disease) Subjective: LEE ANN Funes is a 50 y.o. woman with a long history of ulcerative colitis [facility] Since she was last to see me, she was started on Humira by Dr. Eden Reynoso in late summer 2008 with subsequent elevations of her LFTs. She was seen by Dr. Marc Chan who conducted liver biopsy which showed steatohepatitis. She has since been restarted in Humira. Dr. Chan did her last colonoscopy in December. There was jjjg-[id number] chronic pancolitis. Biopsiesshowed no dysplasia, and there was an inflammatory sigmoid polyp. She reports that she is moving her bowels 2-3 times per day almost always for formed stool. There are no nocturnal symptoms or incontinence. She has had no abdominal pain or other symptoms. She reports that in November, she had some bright red blood along with formed stools. There was no other change in her bowel pattern. This resolved spontaneously within one week. She has been taking her sulfasalazine 2 pills (1 g) twice per day. She has not been taking any NSAIDs. She tolerates her Humira well without any obvious side effects. Review of Systems Constitutional: Negative for fever, fatigue and unexpected weight change. HENT: Negative for mouth sores. Eyes: Negative for pain and redness. Respiratory: Negative for cough and shortness of breath. Cardiovascular: Negative for chest pain and palpitations. Gastrointestinal: Positive for blood in stool. Negative for nausea, vomiting, abdominal pain, diarrhea, constipation and abdominal distention. Genitourinary: Negative for difficulty urinating. Musculoskeletal: Negative for joint swelling and arthralgias. Skin: Positive for rash. Had a transient red rash in the LLQ of the abd that resolved when she restarted her Humira Hematological: Negative. Psychiatric/Behavioral: Negative. Objective: Physical Exam Vitals reviewed. Constitutional: She is oriented to person, place, and time. She appears well- developed and well-nourished. No distress. HENT: Mouth/Throat: Oropharynx is clear and moist. No oropharyngeal exudate. Eyes: Pupils are equal, round, and reactive to light. No scleral icterus. Neck: Neck supple. Cardiovascular: Normal rate, regular rhythm and normal heart sounds. Pulmonary/Chest: Breath sounds normal. She has no rales. Abdominal: Soft. Bowel sounds are normal. She exhibits no distension and no mass. No tenderness. She has no rebound and no guarding. Musculoskeletal: She exhibits no edema. Lymphadenopathy: She has no cervical adenopathy. Neurological: She is alert and oriented to person, place, and time. Skin: Skin is warm and dry. No rash noted. Lab Results Component Value Date ALT 69* 08/14/2010 AST 63* 08/14/2010 ALKPHOS 135* 08/14/2010 BILITOT 0.2 08/14/2010 CBC 03/22/2010: WBC 7.9, Hgb 14.6, Plat 302 Assessment and Plan: Ms. Funes is doing very well on low-dose sulfasalazine and also Humira for her ulcerative colitis and spondylitis. Though she had some persistent inflammation on colonoscopy in December, she has been in complete symptomatic remission. I am skeptical that the brief limited period of hematochezia in November represented a true flare of colitis without any other accompanying symptoms (diarrhea or urgency, e.g.). Since she has had such excellent control of symtoms, I am reluctant to change her regimen for now. Rather, I suggested that we follow her symptoms and then repeat colonoscopy in one year. In my opinion, she will need this exam for surveillance for dysplasia anyway, and we can restage her disease atthat time. The current recommendation for surveillance for dysplasia is every 1-2 years for patients with pancolitis >8-10 yrs duration. Chronically active mucosal inflammation is another risk factor for the development of dysplasia, and, therefore, I think a more conservative one year folllow-up (as opposed to two) is more appropriate. In the meantime, she will continue her current medications and continue to avoid NSAIDs. I recommend a CBC and LFTs every 4 months (Dr. Chan had wanted LFTs every 6 months). She will have these drawn with Dr. Carranza. Follow-up at the time of colonoscopy in December 2011 and in the office one month thereafter. Freddy Rachel MD Med Assttool grinder Section of Gastroenterology [place] [address] CC: MARCIO CARRANZA MD [address] [place] [address] MARC CHAN MD [facility] HEPATOLOGY documented in this encounter Plan of Treatment Upcoming Encounters Date Type Department Care Team (Late st Contact Info) Description 04/19/2024 10:00 AM EDT Hospital Encounter Non-Invasive [place] [phone] Arrived 04/29/2024 9:50 AM [place] [phone] Luis Alfredo Velazquez MD [facility] [place] [address] 04/29/2024 9:50 AM EDT Appointment MRI at [place] [phone] Luis Alfredo Velazquez MD [facility] [place] [address] 06/07/2024 2:30 PM EDT TH Visit (TeleHealth) Gastroenterology at [address]1000 Dajuan Rachel MD [facility] [place] [address] 07/02/2024 2:00 PM EDT Appointment Non-Invasive Cardiology Lab [place] [phone] Luis Alfredo Velazquez MD [facility] [place] [address] 07/02/2024 4:40 PM EDT Office Visit Cardiology at [place] [phone] Luis Alfredo Velazquez MD [facility] [place] [address] documented as of this encounter Visit Diagnoses Diagnosis Ulcerative colitis- Primary Ulcerative colitis, unspecified documented in this encounter Care Teams Insurance Attorney Relationship Specialty Start Date End Date Marcio Carranza MD [address] [place] [address] PCP - General 08/07/10 11/10/17 documented as of this encounter
--- OUTSIDE RECORDS SUMMARY | 2024-04-08 02:33 | XMS_ITS | Encounter Summary ---
Author Organization [facility] [place] [address] Care Team Providers Care State Highway Police Officer Name Role Phone Marcio Carranza MD Primary Care Provider +1 [phone] Encounter Details Date Type Department Care Team (Latest Contact Info) Description 06/03/2014 8:45 AM EDT Ancillary Appointment Dermatology at [address] [address] Marcio Townsend MD [facility] DR [address] [place] [address] Erythema nodosum (Primary Dx) Social History Tobacco Use Types [...] as of this encounter Progress Notes * Casper Marlow MD - 06/07/2014 8:52 AM EDT I directly supervised Dr. Townsend during this office visit. Dr. Townsend presented the historyand physical exam to me. I then saw and examined this patient with Dr. Townsend . We reviewed thehistory and pertinent details and I confirmed the physical findings. I agree with the details of the history and physical exam as documented in Dr. Townsend's note. CASPER MARLOW MD Staff Physician * Marcio Townsend MD - 06/03/2014 10:02 AM EDT DERMATOLOGY [place] NOTE 06/03/2014 Kim Graff Shantel [id number] Marcio Townsend MD Chief Resident in Dermatology History: 54 yo woman h/o ulcerative colitis, ankylosing spondylitis, and psoriasis presenting with tender lower extremity nodules and lower extremity tightness for 3-4 weeks. Initially diagnosed withcellulitis by PCP and treated with cefuroxime followed by trimethoprim-sulfamethoxazole with some improvement in the redness and swelling per patient. Adalimumab was stopped one month ago due to concern for lower extremity infection. Previous treatments: topical triamcinolone and clobetasol prn Past Biopsies: [id number], to be discussed Pertinent Labs: CBC WNL 05/18/14 CMP WNL except for mildly elevated AST/ALT (34/37) and alk phos 108 TSH 1.31 WNL Tissue culture: negative for bacteria, fungus, atypical mycobacteria at 14 days PMH: ulcerative colitis (on adalimumab), ankylosing spondylitis (on sulfasalazine) Meds: ursodiol, atenolol-chlorthalidone, Ca/Vit D, ferrous fumarate, fluticasone spray, magnesium oxide, omeprazole, sulfasalazine, multivitamin, folic acid, vitamin E, adalimumab Allergies: Augmentin (Amoxicillin Clavulanate), Lodine (Etodolac) Reason for Presentation: Diagnosis and treatment options 1. Differential Diagnosis (discussed by team based on clinical findings): ?? Erythema nodosum ?? Erythema induradum (but this would be on the posterior calf) ?? Infectious panniculitis ?? Deep fungal infections such as sporotrichosis ?? Rheumatoid nodules ?? Vasculitis (LCV versus [place]) ?? Sarcoidosis 2. Impression (proposed by team based on clinical and histopathologic findings): ?? Septal and lobular panniculitis with neutrophilic microabscesses. ?? Given that infectious work up (special stains and culture) has been negative and she has a knownstrong association (ulcerative colitis), favor suppurative erythema nodosum 3. Recommendations (proposed by team): ?? Treatment considerations include PO steroids, IL steroids, SSKI, NSAIDS ?? Restart Humira A copy of this report has been sent to the referring provider (Dr. Pack) either by electronic messaging or by fax. Impression and recommendations will be discussed with patient by referring Aquatic Scientist - Dr. Pack. Marcio Townsend MD Resident in Dermatology [facility] Staff kiln packer: Casper Marlow MD, PhD Section of Dermatology [facility] documented in this encounter Plan of Treatment Upcoming Encounters Date Type Department Care Team (Late st Contact Info) Description 04/19/2024 10:00 AM EDT Hospital Encounter Non-Invasive Cardiology Lab [place] [phone] Arrived 04/29/2024 9:50 AM EDT Appointment MRI at [address] Luis Alfredo Velazquez MD [facility] [place] [address] 04/29/2024 9:50 AM EDT Appointment MRI at [place] [phone] Luis Alfredo Velazquez MD [facility] [place] [address] 06/07/2024 2:30 PM EDT TH Visit (TeleHealth) Gastroenterology at [place] [phone] Dajuan Rachel MD [facility] DR [place] [address] 07/02/2024 2:00 PM EDT Appointment [place] [address] Luis Alfredo Velazquez MD [facility] [place] [address] 07/02/2024 4:40 PM EDT Office Visit Cardiology at [address] [phone] Luis Alfredo Velazquez MD [facility] [place] [address] documented as of this encounter Visit Diagnoses Diagnosis Erythema nodosum- Primary documented in this encounter Care Teams State Highway Police Officer Relationship Specialty Start Date End Date Marcio Carranza MD [address] [place] [address] PCP - General 08/07/10 11/10/17 documented as of this encounter
--- OUTSIDE RECORDS SUMMARY | 2024-04-08 02:33 | XMS_ITS | Encounter Summary ---
[place] [address] Care Team Providers Care Billet Straightener Name Role Phone Marcio Carranza MD Primary Care Provider +1 [phone] Encounter Details Date Type Department Care Team (Late st Contact Info) Description 03/08/2011 Abstract [place] [address] Asmita Green RN Social History Tobacco Use Types Packs/Day [...] AM EDT Hospital Encounter Non[place] [address] Arrived 04/29/2024 9:50 AM EDT [place] [address] Luis Alfredo Velazquez MD [facility] [place] [address] 04/29/2024 9:50 AM EDT Appointment MRI at [place] [address] Luis Alfredo Velazquez MD [facility] [place] [address] 06/07/2024 2:30 PM EDT TH Visit (TeleHealth) Gastroenterology at [address] Dajuan Rachel MD [facility] [place] [address] 07/02/2024 2:00 PM EDT Appointment Non-[place] [address] Luis Alfredo Velazquez MD [facility] [place] [address] 07/02/2024 4:40 PM EDT Office Visit Cardiology at [place] [phone] Luis Alfredo Velazquez MD [facility] [place] [address] documented as of this encounter Visit Diagnoses Not on filedocumented in this encounter Care Teams Billet Straightener Relationship Specialty Start Date End Date Marcio Carranza MD [address] [place] [address] PCP - General 08/07/10 11/10/17 documented as of this encounter
--- OUTSIDE RECORDS SUMMARY | 2024-04-08 02:33 | XMS_ITS | Encounter Summary ---
Author Organization [facility] Address [facility] [place] [address] Care Team Providers Care Green Chain Off Bearer Name Role Phone Marcio Carranza MD Primary Care Provider [phone] Encounter Details Date Type Department Care Team (Late st Contact Info) Description 06/03/2014 Telephone Dermatology at [facility] [address] [place] [phone] July Pack MD [facility] [address] [place] [address] Social History Tobacco Use Types Packs/Day Years [...] encounter Miscellaneous Notes * Telephone Encounter - Olivia eBll - 06/09/2014 9:52 AM EDT Left a message for the pt to call back to schedule a follow up appointment Olivia * Telephone Encounter - July Pack MD - 06/03/2014 1:11 PM EDT Spoke to patient regarding [place] Discussion. Group favors atypical erythema nodosum, likely in association with her Crohn's. As the nodules appear to be resolving will defer treatment for now.If lesions worsen group would consider additional biopsy to ensure no growth of infection, and if negative start oral steroids. Group recommends restarting Humira, for her Crohn's. She can continue to use TAC ointment to psoriatic plaques. She understands and agrees with plan. Plan to recheck in 6 weeks, sooner prn. documented in this encounter Plan of Treatment Upcoming Encounters Date Type Department Care Team (Late st Contact Info) Description 04/19/2024 10:00 AM EDT Hospital Encounter Non-Invasive Cardiology Lab [place] [phone] Arrived 04/29/2024 9:50 AM EDT Appointment MRI at [address]1000 Luis Alfredo Velazquez MD [facility] [place] [address] 04/29/2024 9:50 AM EDT Appointment MRI at [place] [phone] Luis Alfredo Velazquez MD [facility] [place] [address] 06/07/2024 2:30 PM EDT TH Visit (TeleHealth) Gastroenterology at [place] [phone] Dajuan Rachel MD [facility] [place] [address] 07/02/2024 2:00 PM EDT Appointment Non[place] [address] Luis Alfredo Velazquez MD [facility] [place] [address] 07/02/2024 4:40 PM EDT Office Visit Cardiology at [address] [phone] Luis Alfredo Velazquez MD [facility] [place] [address] documented as of this encounter Visit Diagnoses Not on filedocumented in this encounter Care Teams Green Chain Off Bearer Relationship Specialty Start Date End Date Marcio Carranza MD [address] [place] [address] PCP - General 08/07/10 11/10/17 documented as of this encounter
--- OUTSIDE RECORDS SUMMARY | 2024-04-08 02:33 | XMS_ITS | Encounter Summary ---
[place] [address] Care Team Providers Care News Writer Name Role Phone Marcio Carranza MD Primary Care Provider [phone] Encounter Details Date Type Department Care Team (Late st Contact Info) Description 05/18/2014 3:30 PM EDT [place] [phone] Shola Whitlock [facility] [place] [address] Ankylosing spondylitis (Primary Dx) Discharge Disposition: Home Social History [...] Sign Reading Time Taken Comments Blood Pressure 165/91 05/18/2014 3:26 PM EDT Pulse 66 05/18/2014 3:26 PM EDT Temperature 37 ??C (98.6 ??F) 05/18/2014 3:26 PM EDT Respiratory Rate - - Oxygen Saturation 97% 05/18/2014 3:26 PM EDT Inhaled Oxygen Concentration - - Weight 95.3 kg (210 lb) 05/18/2014 3:26 PM EDT Height 167.6 cm (5' 6) 05/18/2014 3:26 PM EDT Body Mass Index 33.89 05/18/2014 3:26 PM EDT documented in this encounter Progress Notes * Liang Novak MD - 05/19/2014 10:07 PM EDT I have seen the patient and reviewed the resident's above history and I agree with the details as written. The assessment and plan were formulated in discussion with me and I agree with them as documented. She is currently holding the Humira while awaiting resolution of this skin lesion on her leg. Biopsy of first lesion is non-specific. Awaiting result of second biopsy and determination from derm on best way to proceed with the skin (steroids?). We will recommend resuming Humira as soon as it is clear that there is no infection or other contraindication for anti-TNF therapy. * Shola Whitlock, - 05/18/2014 3:38 PM EDT Rheumatology Fellow Outpatient Progress Note Rheumatologic Problem List 1. UC associated Ankylosing Spondylitis - Currently on Humira [id number] and SSZ - Symptoms of cervical and lumbar spine involvement - Also has erythema nodosum associated with UC - s/p left hip replacement back in 2005 PMH -GERD -MÉNDEZ HPI: Kim Funse is a 54 y.o. female returns today for f/u of UC related ankylosis. She has been followed by my colleague Dr. Reynoso who saw the patient about 6 months ago. She has been doing well until early april when she developed a skin lesion on her left barba region. She has been following with dermatology for this problem who has biopsied the skin previously which was not completely conclusive and has had the patient hold her humira for one month now due to a subsequent cellulitis in the same region where the skin lesions erupted. Currently the patient is off all Abx's and the skin seems to have cleared nicely but she also had another spot on her leg which was re-biopsied by dermatology 2 days ago. She is currently working with dermatology to figure out what the etiology of the skin lesions are (infectious vs. E nodosum vs. Panniculitis). In the intermin her humira has been on hold. As far as her ankylosis is concerned, she has some increased neck symptoms of stiffness, limited ROM and pain but these are bearable. She denies having any swollen or painful joints. In the past her symptoms were mostly axial and these seem to be hold up well on SSZ only. She also reports that her bowel symptoms are stable from a UC standpoint. ROS: A ROS was performed and negative except for above mentioned pertinent posivtives. Patient's medications, allergies, past medical, surgical, social and family histories were reviewedand updated as appropriate Physical Exam: BP 165/91 Pulse 66 Temp 37 ??C (98.6 ??F) (Oral) Ht 167.6 cm (5' 6) Wt 95.255 kg (210 lb) BMI 33.91 kg/m2 SpO2 97% General: AAOx3, NAD, pleasant HEENT: Mucous membranes [...] angles bilaterally. Neuro: Alert and oriented x3. Cranial nerves II through XII grossly intact. Strength 5/5 throughout, Sensation to light touch is grossly normal throughout. DTRs are 2+ throughout. Toes downgoing bilaterally. Skin: (+)left barba with larger area of psorasis, also area of healing 5mm ulcer, area of erythema with small ulcer s/p Bx with suture in skin w/out warmth Extremities Shoulders: FROM, non-tender to palpation Elbows:FROM, [...] UC related ankylosis of the spine. She has had a complicated course of a skin lesion that became infected leading to a need to hold humira for the last month or so. From a joint perspective and GI perspective she has only minor symptoms that are tollerable for the patient while off treatment. She also continues withSSZ which may be helping a bit although not great treatment for axial symptoms. We will work with dermatology to determine etiology of skin lesions (likely erythema nodosum) but recent Bx is still pending and to see if there is any role for steroids. We would like to restart her Humira once cleared by dermatology to continue providing relief and control of her UC symptoms and ankylosis. We will see her back in clinic in about 3 months to make sure she is back on track with her therapy. Plan: 1. UC related ankylosis - cont SSZ - Humira on hold while skin lesions being evaluated - check labs today esr/crp, cbc, cmt - rtc in 3 months 2. Skin lesions possibly erythema nodosum vs. Panniculitis? - working with dermaotlogy - awaiting repeat Bx results - hold humira until cleared by derm - ?role for steroids? To be determined by taylor Whitlock D.O. Rheumatology Fellow documented in this encounter Plan of Treatment Upcoming Encounters Date Type Department Care Team (Late st Contact Info) Description 04/19/2024 10:00 AM EDT Hospital Encounter Non-[place] [phone] Arrived 04/29/2024 9:50 AM [place] [phone] Luis Alfredo Velazquez MD [facility] [place] [address] 04/29/2024 9:50 AM EDT Appointment MRI at [address]1000 Luis Alfredo Velazquez MD [facility] [place] [address] 06/07/2024 2:30 PM EDT TH Visit (TeleHealth) Gastroenterology at [place] [phone] Dajuan Rachel MD [facility] [place] [address] 07/02/2024 2:00 PM EDT Appointment Non-Invasive Cardiology Lab [place] [phone] Luis Alfredo Velazquez MD [facility] [place] [address] 07/02/2024 4:40 PM EDT Office Visit Cardiology at [place] [phone] Luis Alfredo Velazquez MD [facility] [place] [address] documented as of this encounter Procedures Procedure Name Priority Date/Time Associated Diagnosis Comments HEMOGRAM Routine 05/18/2014 4:41 PM EDT Ankylosing spondylitis DIFFERENTIAL, AUTOMATED Routine 05/18/2014 4:41 PM EDT Ankylosing spondylitis SEDIMENTATION RATE Routine 05/18/2014 4: 41 PM EDT Ankylosing spondylitis CBC (WITH DIFF) Routine 05/18/2014 4:41 PM EDT Ankylosing spondylitis CRP, CARDIAC RISK (HS CRP) Routine 05/18/2014 4:41 PM EDT Ankylosing spondylitis COMPREHENSIVE METABOLIC PANEL (NON-FASTING) Routine 05/18/2014 4:41 PM EDT Ankylosing spondylitis documented in this encounter Results * Differential, Automated (05/18/2014 4:41 PM EDT) Neutrophils % 52.7 34.0 - 71.0 % CERNER MILLENNIUM Neutr Abs (ANC) 4.50 1.50 - 6.30 x10(3)/mcL CERNER MILLENNIUM Lymphocytes % 34.5 19.0 - 53.0 % CERNER MILLENNIUM Lymphocytes Abs 3.0 1.0 - 3.6 x10(3)/mcL CERNER MILLENNIUM Monocytes % 10.2 4.0 - 13.0 % CERNER MILLENNIUM Monocyte Abs 0.9 0.2 - 1.0 x10(3)/mcL CERNER MILLENNIUM Eosinophils % 1.9 0.0 - 7.0 % CERNER MILLENNIUM Eosinophils Abs 0.2 0.0 - 0.5 x10(3)/mcL CERNER MILLENNIUM Basophils % 0.5 0.0 - 2.0 % CERNER MILLENNIUM Basophils Abs 0.0 0.0 - 0.2 x10(3)/mcL CERNER MILLENNIUM Immature Gran % 0.20 0.00 - 0.66 % CERNER MILLENNIUM Comment: Immature granulocytes(IG's)percentage and absolute count will include metamyelocytes, myelocytes, and promyelocytes. Blood smears from CBCs yielding IG's will be scanned manually for concordance. If this scan disagrees with the automated IG or if promyelocytes are noted, a manual differential will be performed. Melanie Gran Abs 0.02 0.00 - 0.05 x10(3)/mcL CERNER MILLENNIUM Blood specimen (specimen) 05/18/2014 4:41 PM EDT 05/18/2014 4:49 PM EDT Narrative Resulting Agency Comment Spec In Lab Liang Novak MD HEMATOLOGY ORDERABLE S CERNER EARLENNIUM * (ABNORMAL) Hemogram (05/18/2014 4:41 PM EDT) [facility] WBC 8.5 4.0 - 10.0 x10(3)/mcL CERNER MILLENNIUM RBC 4.99 3.93 - 5.22 x10(6)/mcL CERNER MILLENNIUM Hemoglobin 15.5 11.2 - 15.7 gm/dL CERNER MILLENNIUM Hematocrit 47.5(H) 34.0 - 45.0 % CERNER MILLENNIUM MCV 95.2(H) 79.0 - 94.0 fL CERNER MILLENNIUM MCH 31.1 26.6 - 32.2 pg CERNER MILLENNIUM MCHC 32.6 32.0 - 36.5 gm/dL CERNER MILLENNIUM Platelets 206 145 - 370 x10(3)/mcL CERNER MILLENNIUM RDWSD 47.7(H) 35.0 - 46.0 fL CERNER MILLENNIUM RDWCV 13.8 10.9 - 14.4 % CERNER MILLENNIUM MPV 10.7 9.0 - 12.0 fL CERNER MILLENNIUM Blood specimen (specimen) 05/18/2014 4:41 PM EDT 05/18/2014 4:49 PM EDT Narrative Resulting Agency Comment Spec In Lab Liang Novak MD HEMATOLOGY ORDERABLE S [facility] * (ABNORMAL) Comprehensive metabolic panel (non-fasting) (05/18/2014 4:41 PM EDT) [facility] Glucose Lvl 122 60 - 199 mg/dL CERNER MILLENNIUM Comment:Diabetes: >=200 mg/d L plus symptoms BUN 16 8 - 18 mg/dL CERNER MILLENNIUM Creatinine 0.85 0.70 - 1.20 mg/dL CERNER MILLENNIUM Comment: Please note that the pediatric reference intervals supplied above were not validated at [facility]. Results from pediatric patients should be interpreted in conjunction to the patient's age, height and muscle mass. Sodium 142 135 - 145 mmol/L CERNER MILLENNIUM Potassium 4.3 3.5 - 5.0 mmol/L CERNER MILLENNIUM Comment: Please note: ??Patients with WBC >100,000 may have falsely elevated Potassium levels. ??For accurate Potassium quantification in these patients send serum separator tube (gold top) for subsequent determinations. ??Contact the Clinical Chemistry Laboratory if there are any questions. Chloride 103 98 - 107 mmol/L CERNER MILLENNIUM CO2 28 22 - 31 mmol/L CERNER MILLENNIUM Anion Gap 11 5 - 15 mmol/L CERNER MILLENNIUM Calcium 9.9 8.5 - 10.5 mg/dL CERNER MILLENNIUM Total Protein 8.2 6.4 - 8.3 gm/dL CERNER MILLENNIUM Albumin 4.4 3.2 - 5.2 gm/dL CERNER MILLENNIUM AST 34(H) 0 - 30 unit/L CERNER MILLENNIUM ALT 37(H) 0 - 30 unit/L CERNER MILLENNIUM Alk Phos 108(H) 40 - 104 unit/L CERNER MILLENNIUM Total Bilirubin 0.3 0.2 - 1.3 mg/dL CERNER MILLENNIUM Bili, [...] the following links into your internet browser. [email or web address] Blood specimen (specimen) 05/18/2014 4:41 PM EDT 05/18/2014 4:49 PM EDT Narrative Resulting Agency Comment Spec In Lab Liang Novak MD CHEMISTRY ORDERABLES CERNER MILLENNIUM * High Sensitivity CRP (05/18/2014 4:41 PM EDT) CRP High Sens 4.3 mg/L CERNER MILLENNIUM Comment: Interpretations: 1) For [...] prevention. ??Circulation 2003; [phone] Blood specimen (specimen) 05/18/2014 4:41 PM EDT 05/18/2014 4:49 PM EDT Narrative Resulting Agency Comment Spec In Lab Liang Novak MD CHEMISTRY ORDERABLES Performing Organization Address City/[facility] Co de Phone Number TYSHAWN [employer] * Sedimentation rate (05/18/2014 4:41 PM EDT) Sed Rate 9 0 - 20 mm/hr CERNER MILLENNIUM Blood specimen (specimen) 05/18/2014 4:41 PM EDT 05/18/2014 4:49 PM EDT Narrative Resulting Agency Comment Spec In Lab Liang Novak MD HEMATOLOGY ORDERABLE S Performing Organization Address City/[facility]/ZIP Co de Phone Number TYSHAWN [employer] documented in this encounter Visit Diagnoses Diagnosis Ankylosing spondylitis- Primary documented in this encounter Care Teams News Writer Relationship Specialty Start Date End Date Marcio Carranza MD [address] [place] [address] PCP - General 08/07/10 11/10/17 documented as of this encounter
--- OUTSIDE RECORDS SUMMARY | 2024-04-08 02:33 | XMS_ITS | Encounter Summary ---
Author Organization [facility] [place] [address] Care Team Providers Care Wilderness Guide Name Role Phone Marcio Carranza MD Primary Care Provider [phone] -[phone] Reason for Visit * Reason Onset Date Comments Medication Refill 10/12/2012 Encounter Details Date Type Department Care Team (Late st Contact Info) Description 10/12/2012 [place] [phone] Eden Reynoso MD [address] [place] [address] [place] [address] Social History Tobacco Use Types Packs/Day Years [...] AM EDT Hospital Encounter Non-Invasive [place] [address] Arrived 04/29/2024 9:50 AM EDT Appointment MRI at [place] [phone] Luis Alfredo Velazquez MD [facility] [place] [place] [address] 04/29/2024 9:50 AM EDT Appointment MRI at [place] [phone] Luis Alfredo Velazquez MD [facility] [place] [address] 06/07/2024 2:30 PM EDT TH Visit (TeleHealth) Gastroenterology at [place] [phone] Dajuan Rachel MD [facility] [place] [address] 07/02/2024 2:00 PM EDT Appointment Non-Invasive Cardiology Lab [place] [phone] Luis Alfredo Velazquez MD [facility] [place] [address] 07/02/2024 4:40 PM EDT Office Visit Cardiology at [address] [address] Luis Alfredo Velazquez MD [facility] [place] [address] documented as of this encounter Visit Diagnoses Not on filedocumented in this encounter Care Teams Wilderness Guide Relationship Specialty Start Date End Date Marcio Carranza MD [address] [place] [address] PCP - General 08/07/10 11/10/17 documented as of this encounter
--- OUTSIDE RECORDS SUMMARY | 2024-04-08 02:33 | XMS_ITS | Encounter Summary ---
Author Organization [facility] Address [facility] [place] [address] Care Team Providers Care Sand Mixer Machine Name Role Phone Marcio Carranza MD Primary Care Provider [phone] [phone] Encounter Details Date Type Department Care Team (Latest Contact Info) Description 08/24/2015 4:51 PM EST - 08/24/2015 11:59 PM [facility] Hospital Encounter XRay at [address] MARIA ALEJANDRA Parker [address] Brittani Martinez, [facility] [place] [address] Ankylosing spondylitis Discharge Disposition: Home Social History [...] EDT Hospital Encounter Non-Invasive [place] [address] Arrived 04/29/2024 9:50 AM EDT Appointment MRI at [place] [phone] Luis Alfredo Velazquez MD [facility] [place] [address] 04/29/2024 9:50 AM EDT Appointment MRI at [place] [address] Luis Alfredo Velazquez MD [facility] [place] [address] 06/07/2024 2:30 PM EDT TH Visit (TeleHealth) Gastroenterology at [place] [phone] Dajuan Rachel MD [facility] [place] [address] 07/02/2024 2:00 PM EDT Appointment Non-Invasive Cardiology Lab [place] [phone] Luis Alfredo Velazquez MD [facility] [place] [address] 07/02/2024 4:40 PM EDT Office Visit Cardiology at [place] [phone] Luis Alfredo Velazquez MD [facility] [place] [address] documented as of this encounter Procedures Procedure Name Priority Date/Time Associated Diagnosis Comments XR CERVICAL SPINE 2 OR 3 VIEWS Routine 08/24/2015 5:11 PM EST Ankylosing spondylitis documented in this [...] and spinous processes appeared intact. Procedure Note TiaSamm salmeron, DO - 08/24/2015 EXAMINATION: XR CERVICAL SPINE [...] spondylitis documented in this encounter Care Teams Sand Mixer Machine Relationship Specialty Start Date End Date Marcio Carranza MD [address] [place] [address] PCP - General 08/07/10 11/10/17 documented as of this encounter
--- OUTSIDE RECORDS SUMMARY | 2024-04-08 02:33 | XMS_ITS | Encounter Summary ---
Author Organization [facility] [place] [address] Care Team Providers Care Frame Table Operator Helper Name Role Phone Marcio Carranza MD Primary Care Provider [phone] Reason for Visit * Reason Comments Medication Refill Encounter Details Date Type Department Care Team (Late st Contact Info) Description 04/03/2012 [place] [address] Eden Reynoso MD [address] [place] [address] [place] [address] Social History Tobacco Use Types Packs/Day Years [...] Telephone Encounter - Alex Rodriguez RN - 04/08/2012 10:[address] to Kim to confirm that her Humira is straightened out because I received another fax for a refill. documented in this encounter Plan of Treatment Upcoming Encounters Date Type Department Care Team (Late st Contact Info) Description 04/19/2024 10:00 AM EDT Hospital Encounter Non-Invasive Cardiology Lab [place] [phone] Arrived 04/29/2024 9:50 AM EDT Appointment MRI at [address] Luis Alfredo eVlazquez MD [facility] [place] [address] 04/29/2024 9:50 AM EDT Appointment MRI at [place] [phone] Luis Alfredo Velazquez MD [facility] [place] [address] 06/07/2024 2:30 PM EDT TH Visit (TeleHealth) Gastroenterology at [place] [address] Dajuan Rachel MD [facility] [place] [address] 07/02/2024 2:00 PM EDT Appointment Non-Invasive [place] [address] Luis Alfredo Velazquez MD [facility] [place] [address] 07/02/2024 4:40 PM EDT Office Visit Cardiology at [place] [phone] Luis Alfredo Velazquez MD [facility] [place] [address] documented as of this encounter Visit Diagnoses Not on filedocumented in this encounter Care Teams Frame Table Operator Helper Relationship Specialty Start Date End Date Marcio Carranza MD [address] [place] [address] PCP - General 08/07/10 11/10/17 documented as of this encounter
--- OUTSIDE RECORDS SUMMARY | 2024-04-08 02:33 | XMS_ITS | Encounter Summary ---
Author Organization [facility] [place] [address] Care Team Providers Care Die Repairer Forging Name Role Phone Marcio Carranza MD Primary Care Provider [phone] [phone] Encounter Details Date Type Department Care Team (Late st Contact Info) Description 08/23/2011 Orders [place] [address] Laura Miles, RN Social History Tobacco Use Types Packs/Day [...] AM EDT Hospital Encounter Non-[place] [address] Arrived 04/29/2024 9:50 AM [place] [address] Luis Alfredo Velazquez MD [facility] [place] [address] 04/29/2024 9:50 AM EDT Appointment MRI at [place] [address] Luis Alfredo Velazquez MD [facility] [place] [address] 06/07/2024 2:30 PM EDT TH Visit (TeleHealth) Gastroenterology at [address] Dajuan Rachel MD [facility] [place] [address] 07/02/2024 2:00 PM EDT Appointment Non-Invasive [place] [address] Luis Alfredo Velazquez MD [facility] [place] [address] 07/02/2024 4:40 PM EDT Office Visit Cardiology at [place] [phone] Luis Alfredo Velazquez MD [facility] [place] [address] documented as of this encounter Visit Diagnoses Not on filedocumented in this encounter Care Teams Die Repairer Forging Relationship Specialty Start Date End Date Marcio Carranza MD [address] [place] [address] PCP - General 08/07/10 11/10/17 documented as of this encounter
--- OUTSIDE RECORDS SUMMARY | 2024-04-08 02:33 | XMS_ITS | Encounter Summary ---
Author Organization [facility] [place] [address] Care Team Providers Care Brake Repair Mechanic Name Role Phone Marcio Carranza MD Primary Care Provider [phone] Reason for Visit * Reason Comments Follow-up Encounter Details Date Type Department Care Team (Late st Contact Info) Description 08/19/2011 4:30 PM EST [place] [phone] Marc Chan MD [facility] [place] [address] MÉNDEZ (nonalcoholic steatohepatitis) (Primary Dx); Lipid disorder Discharge Disposition: Home Social History Tobacco Use [...] Sign Reading Time Taken Comments Blood Pressure 131/82 08/19/2011 4:51 PM EST Pulse 56 08/19/2011 4:51 PM EST Temperature - - Respiratory Rate - - Oxygen Saturation - - Inhaled Oxygen Concentration - - Weight 90.5 kg (199 lb 9.6 oz) 08/19/2011 4:51 P M EST Height - - Body Mass Index 32.22 08/19/2011 2:44 PM EST documented in this encounter Patient Instructions * Patient Instructions* Marc hCan MD - 08/19/2011 5:25 PM EST Welcome to [employer], your secure online access to your electronic medical record at [facility]. Using [employer] you will be able to send messages to your providers, view your test results, renew prescriptions, schedule appointments, and much more. Follow these instructions to enter your personal [employer] account for the first time: 1. Start your internet browser. Go to [email or web address].[employer] [email or web address] (formerly [employer]) and click on the [employer] link. 2. Click SIGN UP NOW to go to the NEW MEMBER SIGN UP page. 3. Enter your [employer] Access Code exactly as it appears below. (You will not need this access code after you have completed the sign-up process.) ?? Your [employer] Access Code: [email or web address] ?? Expires: 10/03/11 05:25 PM ?? IMPORTANT: This Access Code will on the above mentioned date. If you do not sign up before this date, you will need to request a new Access Code number. 4. Enter your Date of (mm/dd/yyyy) and zip code click SUBMIT to go to the next page. 5. Create a [employer] identification (ID). This will be your [employer] login ID and cannot be changed, so think of one that is secure and easy to remember. 6. Create a password which you can change at any time. Your password must contain six (6) letters and two (2) numbers. 7. Enter your Password Reset Question and Answer. This will be used if you forget your password. 8. Enter your e-mail address. This is used to let you know when new information is available in [employer]. 9. Click SIGN UP to complete the process. You can now view your electronic medical record. If you have any questions about [employer] or your Access Code, please call for Cloud, for [place] or for [place]. If you need technical support, please e-mail [email or web address]. Remember, [employer] is NOT for urgent needs! Always dial 911 for medical emergencies. documented in this encounter Progress Notes * Marc Chan MD - 08/19/2011 5:23 PM EST [facility]ology [facility] Provider: Marc Chan MD ([id number]) Referral Doctor: Marcio Carranza MD [facility] [address] [place] [address] Problem List: 1. MÉNDEZ (stage 2 in 03/24) a. Labs (03/24) [...] Left Hip replacememt 06' s/p TL 91' Preventative Health: a. HAV / HBV: (p) / (+), Twinrix vaccine: completed (02/23) Subjective: Ms. Kim Funes is a 51 y/o female who is being followed for the diagnosis of MÉNDEZ. She comes for routine follow up and currently has no complaints. She has tried to adhere to diet and exercise. She has lost 3 pounds since last visit. All labs are improved. ROS: Denies signs and symptoms of ascites, encephalopathy, or GI bleeding since last visit. Fm/Soc HX: Marital status: ; children: (1) D23: allergies Employment status: [employer] Tobacco use: never Alcohol use: rare in remote past Intravenous drug use: never; nasal drug use: never Tattoos: none Transfusions: none Father: , age:72, Lung cancer, cad, etoh abuse Mother: , age: 68, cad, htn, Hepatitis C (transfusion) > cirrhosis > Siblings: (6) B58 arthritis, B47: cancer?, B40: from mva; S62: a+w, S60: arthritis, S58: unknown (specific diseases common to family: Aunt: DM and Aunt: Arthritis) Current outpatient prescriptions Medication Sig Dispense Refill ??? adalimumab (HUMIRA) 40 mg/0.8 mL injection Inject 0.8 mLs subcutaneously every 14 days. 2 each 6 ??? atenolol-chlorthalidone (TENORETIC) 100-25 mg per tablet [...] mg by mouth 2 times daily. ??? simvastatin (ZOCOR) 10 mg tablet Take 1 tablet by mouth nightly. 90 tablet 3 ??? multivitamin (THERAGRAN) tablet ??? folic acid (FOLVITE) 1 mg tablet 1 MG = 1 Tablet(s), PO, Once daily ??? ursodiol (ACTIGALL) 300 mg capsule 300mg, PO, Three times daily ??? ascorbic acid (VITAMIN C) 1,000 mg tablet 1000MG, PO, Once daily ??? vitamin E 400 unit capsule 800UNIT, PO, Once daily ADR/ALLERGIES: ADR/ALLERGY REACTION SEVERITY Difficult Airway Severe Doxycycline Nausea/Vomiting Augmentin Nausea/Vomiting Cephalexin Nausea/Vomiting Ibuprofen chest pains Exam: VITAL SIGNS: Filed Vitals: 08/19/11 1651 BP: 131/82 Pulse: 56 Wt 199 lbs (3 lbs lower that last visit) Constitutional: Well appearing Eye: PERRLA, sclera anicteric Musculoskeletal: no muscle wasting, no arthritis Neuro: alert and oriented x 3, nonfocal, no asterixis Skin: no cyanosis, no clubbing, no edema, no spider angiomata, + crystal erythema, no jaundice Impression and Plan: Ms. Kim Funes is a 51 y/o female with MÉNDEZ (stage 2). The patient will continue MÉNDEZ therapy and intensify efforts at diet and exercise. Will check Hep A status since it was missed on recent lab draw. F/u in 6 months with next set of labs. An extensive discussion regard the patient's illness was performed. All of the patient's questions were answered at the conclusion of the visit. Marc Chan MD Physical Security Specialistaudio visual secretary & Director of End Stage Liver Care Division of Gastroenterology and Hepatology tel: fax: [email or web address] documented in this encounter Plan of Treatment Upcoming Encounters Date Type Department Care Team (Late st Contact Info) Description 04/19/2024 10:00 AM EDT Hospital Encounter Non-Invasive [place] [address] Arrived 04/29/2024 9:50 AM EDT Appointment MRI at [address]1000 Luis Alfredo Velazquez MD [facility] [place] [address] 04/29/2024 9:50 AM EDT Appointment MRI at [address]1000 Luis Alfredo Velazquez MD [facility] [place] [address] 06/07/2024 2:30 PM EDT TH Visit (TeleHealth) Gastroenterology at [place] [phone] Dajuan Rachel MD [facility] [place] [address] 07/02/2024 2:00 PM EDT Appointment Non-Invasive Cardiology Lab [place] [phone] Luis Alfredo Velazquez MD [facility] [place] [address] 07/02/2024 4:40 PM EDT Office Visit Cardiology at [address] [phone] Luis Alfredo Velazquez MD [facility] [place] [address] documented as of this encounter Procedures Procedure Name Priority Date/Time Associated Diagnosis Comments TSH Routine 08/19/2011 5:44 PM EST HEMOGLOBIN A1C Routine 08/19/2011 5:44 PM EST LIPID PANEL (REFLEX DIRECT LDL) Routine 08/19/2011 5:44 PM EST COMPREHENSIVE METABOLIC PANEL (NON-FASTING) Routine 08/19/2011 5:44 PM EST documented in this encounter Results * TSH (08/19/2011 5:44 PM EST) TSH 1.31 0.27 - 4.20 mcIU/mL [facility] Blood specimen (specimen) 08/19/2011 5:44 PM EST 08/19/2011 5:48 PM EST Marc Chan MD CHEMISTRY ORDERABLES [facility] * (ABNORMAL) LIPID PANEL (FASTING) (08/19/2011 5:44 PM EST) Chol, Total 191 <=199 mg/dL [facility] Comment: Recommendations of the NCEP Adult Treatment Panel for the following risk cutoff thresholds for the [place] population: Desirable: <200 mg/dL Borderline High: 200-239 mg/dL High: > or = 240 mg/dL Triglycerides 250(H) <=149 mg/dL [facility] Comment: Reference Range: Normal triglycerides: ??<150 mg/dL Borderline high: ??150-199 mg/dL High: ??200-499 mg/dL Very high: ??>fv=017 mg/dL ABRAHAM 2001; 285(19):2536-5564 HDL 52 >=40 mg/dL [facility] Comment: Reference range: ??Low HDL: ?? < 40 mg/dL ??Normal: ?40-60 mg/dL ??Desirable: > 60 mg/dL ABRAHAM 2001; 285(19):2845-0289 LDL Cholesterol 89 <=99 mg/dL [facility] Comment: Reference range: ?? Optimal: ?<100 mg/dL ?? Near Optimal/Above Optimal: ?? 100-129 mg/dL ?? Borderline high: ?130-159 mg/dL ?? High: ? 160-189 mg/dL ?? Very high: ?>xd=208 mg/dL ABRAHAM 2001: 285(19):1245-0352 Chol/HDL Ratio 3.7 ratio [facility] Brittany [facility] Comment: A Cholesterol to HDL ratio below 4:1 is desirable. ??Studies suggest that increased CAD risk occurs at ratios above 5 for females and above 6 for men. ? [place] Heart Association ??(http://www.americanheart.org) ? Aleta Int Med, 1994; 121:641 ? AM J Med, 1998; 105(1A):48S Blood specimen (specimen) 08/19/2011 5:44 PM EST 08/19/2011 5:48 PM EST Marc Chan MD CHEMISTRY ORDERABLES [facility] * HEMOGLOBIN A1C (08/19/2011 5:44 PM EST) Hemoglobin A1C 5.6 4.3 - 6.1 % [facility] Est Avg Gluc 114 mg/dL [facility] Comment: eAG equivalents for HbA1c percentages: HbA1c(%) [...] into estimated average glucose values. ??Diabetes Care 2008:31(8):7083-0009. Blood specimen (specimen) 08/19/2011 5:44 PM EST 08/19/2011 5:48 PM EST Marc Chan MD CHEMISTRY ORDERABLES [facility] * (ABNORMAL) COMPREHENSIVE METABOLIC PANEL (NON-FASTING) (08/19/2011 5:44 PM EST) Glucose Lvl 97 60 - 199 mg/dL [facility] Comment:Diabetes: >=200 mg/d L plus symptoms BUN 19(H) 8 - 18 mg/dL [facility]EN[facility] Creatinine 0.98 0.70 - 1.20 mg/dL [facility] Sodium 143 135 - 145 mmol/L [facility] Potassium 4.3 3.5 - 5.0 mmol/L [facility] Comment: Please note: ??Patients with WBC >100,000 may have falsely elevated Potassium levels. ??For accurate Potassium quantification in these patients send serum separator tube (gold top) for subsequent determinations. ??Contact the Clinical Chemistry Laboratory if there are any questions. Chloride 104 98 - 107 mmol/L [facility] MILLENNI[facility] CO2 32(H) 22 - 31 mmol/L [facility] MILLENNI[facility] Anion Gap 7 5 - 15 mmol/L [facility] MILLENNIUM Calcium 10.2 8.5 - 10.5 mg/dL [facility] MILLENNI[facility] Total Protein 8.4(H) 6.4 - 8.3 gm/dL [facility] MILLENNI[facility] Albumin 4.5 3.2 - 5.2 gm/dL [facility] MILLENNI[facility] AST 53(H) 0 - 30 unit/L [facility] MILLENNIUM ALT 67(H) 0 - 30 unit/L [facility] MILLENNIUM Alk Phos 115(H) 40 - 104 unit/L [facility] MILLENNIUM Total Bilirubin 0.4 0.2 - 1.3 mg/dL [facility] MILLENNIUM Bili, Direct 0.1 0.0 - 0.3 mg/dL [facility] MILLENNIUM Estimated GFR 60 >=60 [facility]NI[facility] Comment: The National Kidney Disease Education Program (NKDEP) has recommended all laboratories report estimated GFR (eGFR) along with plasma creatinine measurements to assist you with recognition of early kidney disease. Caveats: ??Plasma creatinine should be at steady-state (unchanged within the past week). For patients multiply eGFR by 1.2.MDRD equation has not been validated for pediatric patients and is only valid for patients with age >= 18 years. At present, NKDEP does NOT recommend using the MDRD equation for drug dosing purposes and pharmacists should continue to use their current dosing methods. In addition, numerical eGFR values greater than 60 ml/min/1.73 square meters should be treated as > 60, and not an exact number due to greater inaccuracies at these higher values. Per NKDEP, they classify normal renal function as any GFR >60ml/min/1.73 square meters; chronic kidney disease when GFR <60, and renal failure when GFR <15. ??This calculation may not be valid for patients with atypical muscle mass (very lean or obese), acute renal failure, and in patients with diabetic kidney disease. References: http://nkdep.nih.gov/resources/NKDEP_Suggestn4Labs_0606_508.pdf http://www.kidney.org/professionals/kls/pdf/faq_gfr.pdf Blood specimen (specimen) 08/19/2011 5:44 PM EST 08/19/2011 5:48 PM EST Marc Chan MD CHEMISTRY ORDERABLES [facility] documented in this encounter Visit Diagnoses Diagnosis MÉNDEZ (nonalcoholic steatohepatitis)- Primary Other chronic nonalcoholic liver disease Lipid disorder Unspecified disorder of lipoid metabolism documented in this encounter Care Teams Brake Repair Mechanic Relationship Specialty Start Date End Date Marcio Carranza MD [address] [place] [address] PCP - General 08/07/10 11/10/17 documented as of this encounter
--- OUTSIDE RECORDS SUMMARY | 2024-04-08 02:33 | XMS_ITS | Encounter Summary ---
Author Organization [facility] [place] [address] Care Team Providers Care Educational Adviser Name Role Phone Marcio Carranza MD Primary Care Provider [phone] [phone] Reason for Visit * Reason Onset Date Comments Medication Refill 04/06/2015 Encounter Details Date Type Department Care Team (Late st Contact Info) Description 04/06/2015 Ref[place] [address] Rian Castro MD [facility] [place] [address] Ankylosing spondylitis of cervical region Social History [...] AM EDT Hospital Encounter Non-[place] [address] Arrived 04/29/2024 9:50 AM EDT Appointment MRI at [place] [address] Luis Alfredo Velazquez MD [facility] [place] [address] 04/29/2024 9:50 AM EDT Appointment MRI at [place] [address] Luis Alfredo Velazquez MD [facility] [place] [address] 06/07/2024 2:30 PM EDT TH Visit (TeleHealth) Gastroenterology at [address]1000 Dajuan Rachel MD [facility] [place] [address] 07/02/2024 2:00 PM EDT Appointment Non-[place] [address] Luis Alfredo Velazquez MD [facility] [place] [address] 07/02/2024 4:40 PM EDT Office Visit Cardiology at [address] [phone] Luis Alfredo Velazquez MD [facility] [place] [address] documented as of this encounter Visit Diagnoses Diagnosis Ankylosing spondylitis of cervical region Ankylosing spondylitis documented in this encounter Care Teams Educational Adviser Relationship Specialty Start Date End Date Marcio Carranza MD [address] [place] [address] PCP - General 08/07/10 11/10/17 documented as of this encounter
--- OUTSIDE RECORDS SUMMARY | 2024-04-08 02:33 | XMS_ITS | Encounter Summary ---
Author Organization [facility] [place] [address] Care Team Providers Care Shell Maker Lockstitch Name Role Phone Marcio Carranza MD Primary Care Provider [phone] Reason for Visit * Reason Comments Hepatic Disease Encounter Details Date Type Department Care Team (Late st Contact Info) Description 02/21/2011 12:00 PM EDT [place] [phone] Marc Chan MD [facility] [place] [address] Ulcerative colitis; MÉNDEZ (nonalcoholic steatohepatitis); Lipid disorder Discharge Disposition: Home Social History [...] Sign Reading Time Taken Comments Blood Pressure 120/80 02/21/2011 12:31 PM EDT Pulse - - Temperature - - Respiratory Rate - - Oxygen Saturation - - Inhaled Oxygen Concentration - - Weight 92 kg (202 lb 12.8 oz) 02/21/2011 12:31 P M EDT Height 168.9 cm (5' 6.5) 02/21/2011 12:31 PM ED T Body Mass Index 32.24 02/21/2011 12:31 PM EDT documented in this encounter Progress Notes * Marc Chan MD - 02/21/2011 12:50 PM EDT Gastroenterology and Hepatology Clinic Provider: Marc Chan MD ([id number]) Referral Doctor: Marcio Carranza MD [facility] [address] [place] [address] Problem List: 1. MÉNDEZ (stage 2 in 03/24) a. Labs (03/24) tb .3, ast 141, alt 144, alp 130, alb 4.2, inr 1.1, cr .97, plt 302, TRIG 258 1. CLD labs (03/24) gamma 1.78, SHAMIKA 65, pANCA (+), PR3 4.8, A1AT (M/S, 157), others (-) b. US (01/22) fatty liver c. Liver biopsy (03/24) steatohepatitis, grade 2/3, stage 2/4, steatosis 3/3, + ballooning 2. Ankylosing Spondylitis, 92' 3. Ulcerative Colitis (left sided) 94'; prior colonoscopy induced microperf. (09/23) A. Last Colon (12/24) active colitis, no dysplasia 4. HTN 5. Obesity, bmi 31 6. GERD 7. Lipid disorder (01/23) chol 247 / ldl 139, Trig 254 8. Iron def (15%) in 03/24 9. Alpha 1 Antitrypsin Def carrier (M/S, level 157, PAS -) H/o Colon polyp (12/24) s/p Left Hip replacememt 06' s/p TL 91' Preventative Health: a. HAV / HBV: (p) / (p), Twinrix vaccine: completed (02/23) Subjective: Ms. Kim Funes is a 50 y/o female who is being followed for the diagnosis of MÉNDEZ. She comes for routine follow up and currently has no complaints. She has tried to adhere to diet and exercise. Unfortunately, she has 4 pound wt gain. She denies any active bowel symptoms despite recent colon bxs showing active UC. There was no dysplasia. She is on 5-ASA and Humira currently. Her most recent lab show persistence in elevated LFTs and now worse lipids. ROS: Denies signs and symptoms of ascites, [...] to family: Aunt: DM and Aunt: Arthritis) Medication Sig ??? atenolol-chlorthalidone (TENORETIC) 100-25 mg per tablet Take 1 tablet by mouth daily. ??? Calcium Carbonate-Vitamin D2 [...] mg by mouth 2 times daily. ??? adalimumab (HUMIRA) 40 mg/0.8 mL injection Inject 0.8 mLs subcutaneously every 14 days. ??? multivitamin (THERAGRAN) tablet ??? folic acid [...] Nausea/Vomiting Ibuprofen chest pains Exam: VITAL SIGNS: see above Constitutional: Well appearing Eye: PERRLA, sclera anicteric Musculoskeletal: no muscle wasting, no arthritis Neuro: alert and oriented x 3, nonfocal, no asterixis Skin: no cyanosis, no clubbing, no edema, no spider angiomata, + crystal erythema, no jaundice Impression and Plan: Ms. Kim Funes is a 50 y/o female with MÉNDEZ (stage 2). The patient will continue MÉNDEZ therapy and intensify efforts at diet and exercise. I will refer to Dr Rachel to address if UC therapy should be modified. I will add Zocor 10mg at this time. F/u in 6 months with next set of labs. An extensive discussion regard the patient's illness was performed. All of the patient's questions were answered at the conclusion of the visit. Marc Chan MD Store Operations Managerbilingual school psychologist & Director of End Stage Liver Care Division of Gastroenterology and Hepatology tel: fax: [email or web address] documented in this encounter Plan of Treatment Upcoming Encounters Date Type Department Care Team (Late st Contact Info) Description 04/19/2024 10:00 AM EDT Hospital Encounter [place] [phone] Arrived 04/29/2024 9:50 AM [place] [phone] Luis Alfredo Velazquez MD [facility] [place] [address] 04/29/2024 9:50 AM EDT Appointment MRI at [place] [address] Luis Alfredo Velazquez MD [facility] [place] [address] 06/07/2024 2:30 PM EDT TH Visit (TeleHealth) Gastroenterology at [address] Dajuan Rachel MD [facility] [place] [address] 07/02/2024 2:00 PM EDT Appointment Non-Invasive Cardiology Lab [address] Luis Alfredo Velazquez MD [facility] [place] [address] 07/02/2024 4:40 PM EDT Office Visit Cardiology at [place] [address] Luis Alfredo Velazquez MD [facility] [place] [address] documented as of this encounter Visit Diagnoses Diagnosis Ulcerative colitis Ulcerative colitis, unspecified MÉNDEZ (nonalcoholic steatohepatitis) Other chronic nonalcoholic liver disease Lipid disorder Unspecified disorder of lipoid metabolism documented in this encounter Care Teams Shell Maker Lockstitch Relationship Specialty Start Date End Date Marcio Carranza MD [address] [place] [address] PCP - General 08/07/10 11/10/17 documented as of this encounter
--- OUTSIDE RECORDS SUMMARY | 2024-04-08 02:33 | XMS_ITS | Encounter Summary ---
Author Organization [facility] [place] [address] Care Team Providers Care Marble Cutter Operator Name Role Phone Marcio Carranza MD Primary Care Provider [phone] Reason for Visit * Reason Comments Medication Refill Encounter Details Date Type Department Care Team (Late st Contact Info) Description 10/28/2013 [place] [phone] Eden Reynoso MD [address] [place] [address] [place] [address] Social History Tobacco Use Types Packs/Day Years [...] Hospital Encounter Non-[place] [phone] Arrived 04/29/2024 9:50 AM EDT Appointment MRI at [place] [address] Luis Alfredo Velazquez MD [facility] [place] [address] 04/29/2024 9:50 AM EDT Appointment MRI at [place] [address] Luis Alfredo Velazquez MD [facility] [place] [address] 06/07/2024 2:30 PM EDT TH Visit (TeleHealth) Gastroenterology at [address] Dajuan Rachel MD [facility] [place] [address] 07/02/2024 2:00 PM EDT Appointment Non-Invasive Cardiology Lab [place] [address] Luis Alfredo Velazquez MD [facility] [place] [address] 07/02/2024 4:40 PM EDT Office Visit Cardiology at [place] [phone] Luis Alfredo Velazquez MD [facility] [place] [address] documented as of this encounter Visit Diagnoses Not on filedocumented in this encounter Care Teams Marble Cutter Operator Relationship Specialty Start Date End Date Marcio Carranza MD [address] [place] [address] PCP - General 08/07/10 11/10/17 documented as of this encounter
--- OUTSIDE RECORDS SUMMARY | 2024-04-08 02:34 | XMS_ITS | Encounter Summary ---
Author Organization [facility] Address [facility] [place] [address] Care Team Providers Care Shot Blast Equipment Operator Name Role Phone Marcio Devlin DO Primary Care Provider [phone] Encounter Details Date Type Department Care Team (Late st Contact Info) Description 04/04/2010 Orders [place] [address] Marc Chan MD [facility] [place] [address] Social History Tobacco Use Types Packs/Day Years Used Date Smoking Tobacco: Never Assessed [facility] Utilities Answer Date Recorded In the past 12 months has [employer], gas, oil, or water [employer] threatened to shut off services in your [...] in a skilled nursing (including now)? No 10/21/2023 IPV Inpatient Questions [...] AM EDT Hospital Encounter Non-Invasive [place] [address] Arrived 04/29/2024 9:50 AM EDT [place] [phone] Luis Alfredo Velazquez MD [facility] [place] [address] 04/29/2024 9:50 AM EDT [place] [phone] Luis Alfredo Velazquez MD [facility] [place] [address] 06/07/2024 2:30 PM EDT TH Visit (TeleHealth) Gastroenterology at [place] [phone] Dajuan Rachel MD [facility] [place] [address] 07/02/2024 2:00 PM EDT Appointment Non-Invasive [place] [address] Luis Alfredo Velazquez MD [facility] [place] [address] 07/02/2024 4:40 PM EDT Office Visit Cardiology at [address] [phone] Luis Alfredo Velazquez MD [facility] [place] [address] documented as of this encounter Procedures Procedure Name Priority Date/Time Associated Diagnosis Comments SURGICAL PATHOLOGY REPORT Routine 04/04/2010 10:31 AM EDT documented in this encounter Results * Surgical Pathology Report (04/04/2010 10:31 AM EDT) Surgical Pathology Report [id number] ? Location: 4T The signing pathologist has (i) examined the relevant preparation(s) for the specimen(s) and (ii) rendered or confirmed the diagnosis(es). . ?Pathology Surgical Pathology Final Report Clinical Information Specimen Submitted: A - Liver biopsy, right lobe liver Clinical History: ? autoimmune liver disease vs drug vs other Clinical Diagnosis: Elevated LFT's, ? autoimmune disease Gross Description Labeled/Fixative: ? Right lobe, liver biopsy, formalin. Qty/Size/Weight: ?Three soft, red-brown needle core biopsies, ?ranging from 0.9 x 0.2 cm to 1.5 x 0.2 cm. Sections/Processin g: ??(T1) ??bds/SNS Microscopic Description Slides reviewed, microscopic description not recorded. Special stains are performed. ?? Block ? Stain ?Result ( Positive / Negative ) ??A1 ?Trichrome ? Highlights periportal and focal ?pericellular fibrosis ??A1 ?Iron ?Negative Diagnosis A - Liver, right lobe, biopsy: ?Widespread steatohepatitis (see Note). NOTE: ??Biopsy shows macrovesicular steatosis involving more than 60% of the lobule. ??Widespread hepatocyte ballooning and lobular inflammation consisting of lymphocytes and more rare neutrophils is present. ??Portal inflammation is mild and consists of lymphocytes. ??There is no significant interface hepatitis. ??Plasma cells are not appreciated. ??Trichrome stain highlights periportal and focal pericellular fibrosis, stage 2/4. ??Iron stain is negative. 04/06/10 LML 04/06/10 Verified by: ? Iker Jansen MD ?Pathologist ?(Electronic Signature) The attending pathologist whose signature appears on this report has reviewed all diagnostic slides and has edited the gross and/or microscopic portion of the report in rendering the final pathologic diagnosis. [facility] 04/04/2010 10:3 1 AM EDT Marc Chan MD PATHOLOGY/CYTOLOGY O RDERABLES Performing Organization Address City/State/[facility] Co de Phone Number [facility] documented in this encounter Visit Diagnoses Not on filedocumented in this encounter Care Teams Shot Blast Equipment Operator Relationship Specialty Start Date End Date Marcio Devlin DO [address] [place] [address] PCP - General Family Medicine 11/11/17 documented as of this encounter
--- OUTSIDE RECORDS SUMMARY | 2024-04-08 02:34 | XMS_ITS | Referral Summary ---
Author Organization [facility] Address [address] [place] [address] Care Team Providers Care Professor Of Mechanical Engineering Name Role Phone Marcio Carranza MD Primary Care Provider Unav ailable Social History Tobacco Use Types Packs/Day Years Used Date Smoking Tobacco: Never Assessed Sex and Gender Information Value Date Recorded Sex Assigned at Not on file Gender Identity Not on file Sexual Orientation Not on file Plan of Treatment Not on file Care Teams Professor Of Mechanical Engineering Relationship Specialty Start Date End Date Marcio Carranza MD PCP - General 07/26/15
--- OUTSIDE RECORDS SUMMARY | 2024-04-08 02:34 | XMS_ITS | Encounter Summary ---
Author Organization [facility] Address [address] [place] [address] Care Team Providers Care Electronics System Mechanic Name Role Phone Marcio Carranza MD Primary Care Provider Unav ailable Encounter Details Date Type Department Care Team (Late st Contact Info) Description 05/03/2020 Lab Requisition [facility] Pathology & Laboratory Medicine - [address] [phone] Outr Resulting Lab, Provider Social History Tobacco Use Types Packs/Day Years Used Date Smoking Tobacco: Never Assessed Sex and Gender Information Value Date Recorded Sex Assigned at Not on file Gender Identity Not on file Sexual Orientation Not on file documented as of this encounter Plan of Treatment Not on file documented as of this encounter Procedures Procedure Name Priority Date/Time Associated Diagnosis Comments PTH INTACT Routine 05/03/2020 8:30 EDT documented in this encounter Results * PTH INTACT (05/03/2020 8:30 EDT) Intact PTH 56 19 - 88 pg/mL 05/04/2020 10:29 EDT [facility] Blood VENOUS BLOOD / Unknown 05/03/2020 8:30 EDT 05/03/2020 16:07 EDT Provider Outr Resulting Lab CHEMISTRY & BLOOD GAS ORDERABLES [facility] [address] [place] [address] documented in this encounter Visit Diagnoses Not on filedocumented in this encounter Care Teams Electronics System Mechanic Relationship Specialty Start Date End Date Marcio Carranza MD PCP - General 07/26/15 documented as of this encounter
--- OUTSIDE RECORDS SUMMARY | 2024-04-08 02:34 | XMS_ITS | Encounter Summary ---
Author Organization [facility] Address [address] [place] [address] Care Team Providers Care Banquet Bartender Name Role Phone Marcio Carranza MD Primary Care Provider Unav ailable Encounter Details Date Type Department Care Team (Late st Contact Info) Description 04/04/2021 Lab Requisition [facility] Pathology & Laboratory Medicine - [address] [phone] Outr Resulting Lab, Provider Social History Tobacco [...] Procedure Name Priority Date/Time Associated Diagnosis Comments HIV 1/2 ANTIGEN AND ANTIBODY, 4TH GENERATION Routine 04/04/2021 14:07 EDT documented in this encounter Results * HIV 1/2 ANTIGEN AND ANTIBODY, 4TH GENERATION (04/04/2021 14:07 EDT) HIV 1 and 2 Antibody/p24 Antigen, 4th Generation Negative Negative 04/05/2021 9:48 EDT [facility] Comment: If acute HIV-1 infection is suspected in a high risk ??patient, submit plasma specimen for HIV-1 RNA quantitation test. Fourth Generation assay performed on the [employer]. Blood VENOUS BLOOD / Unknown 04/04/2021 14:07 EDT 04/04/2021 21:08 EDT Provider Outr Resulting Lab IMMUNOLOGY A ND SEROLOGY ORDERABLES Performing Organization Address [facility]/State/ZIP Co de Phone Number [facility] [address] [place] [address] documented in this encounter Visit Diagnoses Not on filedocumented in this encounter Care Teams Banquet Bartender Relationship Specialty Start Date End Date Marcio Carranza MD PCP - General 07/26/15 documented as of this encounter
--- OUTSIDE RECORDS SUMMARY | 2024-04-08 02:34 | XMS_ITS | Encounter Summary ---
Author Organization [facility] Address [address] [place] [address] Care Team Providers Care Practice Administrator Name Role Phone Unavailable Primary Care Provider Unavailabl e Encounter Details Date Type Department Care Team (Late st Contact Info) Description 12/29/2000 Results Only [facility] [address] [place] [address] Clarita Witt, KIM Social History Tobacco Use Types Packs/Day Years Used Date Smoking Tobacco: Never Assessed Sex and Gender Information Value Date Recorded Sex Assigned at Not on file Gender Identity Not on file Sexual Orientation Not on file documented as of this encounter Plan of Treatment Not on file documented as of this encounter Procedures Procedure Name Priority Date/Time Associated Diagnosis Comments CYTOPATHOLOGY Routine 12/29/2000 0:00 EDT documented in this encounter Results * CYTOPATHOLOGY (12/29/2000 0:00 EDT) Pathology Report: CYTOPATHOLOGY REPORT Reports generated via electronic interface contain original data; however they are lacking the format of the original report. Caution should be taken when reading/interpreti ng unformatted reports. Name: ? KIM PEREZ ? Accession #: ? [id number] : ? 1960 (Age: 40) ??F ?Collect Date: ? 12/29/2000 Location: ? [facility] ? Receive Date: ? 12/31/2000 Provider: ?CLARITA WITT NP Copy to: ? Specimen/Source: ?ThinPrep Pap Test, Cervix/Endocervix Last Menstrual Period: ? 12/08/00 ? SPECIMEN ADEQUACY ? Satisfactory for evaluation. GENERAL CATEGORIZATION ? Within Normal Limits ? Document reviewed and electronically signed by: ? BETO Arroyo(ASCP) ? Report Date: ??01/01/2001 14:31 End of Report [facility] 12/29/2000 12/31/2000 Clarita Witt NP PATHOLOGY ORDERABLES [facility] [address] [place] [address] documented in this encounter Visit Diagnoses Not on filedocumented in this encounter
--- OUTSIDE RECORDS SUMMARY | 2024-04-08 02:34 | XMS_ITS | Encounter Summary ---
Author Organization [facility] Address [address] [place] [address] Care Team Providers Care Spinning Lathe Operator Name Role Phone Marcio Carranza MD Primary Care Provider Unav ailable Encounter Details Date Type Department Care Team (Late st Contact Info) Description 04/05/[address] [facility] Pathology & Laboratory Medicine - [address] [phone] Outr Resulting Lab, Provider Social History Tobacco [...] Procedure Name Priority Date/Time Associated Diagnosis Comments QUANTIFERON TB GOLD PLUS Routine 04/04/2021 14:07 EDT documented in this encounter Results * QUANTIFERON TB GOLD PLUS (04/04/2021 14:07 EDT) Pathologist [facility] Quantiferon Interpretation Negative Negative 04/06/2021 13:32 EDT [facility] Comment: No interferon-gamma response to M. tuberculosis antigens was detected. ??Infection with M. tuberculosis is unlikely. A single negative result does not exclude infection with M. tuberculosis. ??In patients at high risk for M. tuberculosis infection, a second test should be considered in accordance with the 2017 ATS/IDSA/CDC Clinical Practice Guidelines for Diagnosis of Tuberculosis in Adults and Children. [Jesus GOODMAN et. al. Clin. Infect. Dis. 2017:64 (2) ??: 111-115]. Results were obtained with the [employer] QuantiFERON TB Gold Plus CASE. TB1 Ag minus Nil 0.02 IU/ml 04/06/20 13:32 EDT [facility] TB2 Ag minus Nil 0.06 IU/mL 04/06/20 13:32 EDT [facility] Blood VENOUS BLOOD / Unknown 04/04/2021 14:07 EDT 04/05/2021 15:50 EDT Narrative [facility] - 04/06/2021 13:32 EDT Results were obtained with the [employer] QuantiFERON-TB Gold Plus CASE. Provider Outr Resulting Lab CHEMISTRY & BLOOD GAS ORDERABLES [facility] [address] [place] [address] documented in this encounter Visit Diagnoses Not on filedocumented in this encounter Care Teams Spinning Lathe Operator Relationship Specialty Start Date End Date Marcio Carranza MD PCP - General 07/26/15 documented as of this encounter
--- OUTSIDE RECORDS SUMMARY | 2024-04-08 02:34 | XMS_ITS | Encounter Summary ---
Author Organization [facility] Address [address] [place] [address] Care Team Providers Care Boat Crew Deck Hand Name Role Phone Marcio Carranza MD Primary Care Provider Unav ailable Encounter Details Date Type Department Care Team (Late st Contact Info) Description 05/16/2023 Lab Requisition [facility] Pathology & Laboratory Medicine - [address] [phone] Outr Resulting Lab, Provider Social History Tobacco [...] Procedure Name Priority Date/Time Associated Diagnosis Comments TISSUE TRANSGLUTAMINASE ANTIBODY, IGA Routine 05/16/2023 14:30 EDT documented in this encounter Results * TISSUE TRANSGLUTAMINASE AB, IGA (05/16/2023 14:30 EDT) Tissue Transglutaminase Antibody IGA <1.2 <4.0 U/mL 05/19/2023 12:33 EDT [facility] Comment: A negative result may be due to IgA deficiency and does not rule out celiac disease. ? Negative: ??<4.0 U/mL ? Weak Positive: ??4.0 - 10.0 U/mL ? Positive: ??>10.0 U/mL Results were obtained with the TactoTekA Lite R h-tTG IgA CASE assay on the [employer] DSX. Blood VENOUS BLOOD / Unknown 05/16/2023 14:30 EDT 05/16/2023 20:53 EDT Provider Outr Resulting Lab IMMUNOLOGY A ND SEROLOGY ORDERABLES Performing Organization Address City/State/[facility] Co de Phone Number [facility] [address] [place] [address] documented in this encounter Visit Diagnoses Not on filedocumented in this encounter Care Teams Boat Crew Deck Hand Relationship Specialty Start Date End Date Marcio Carranza MD PCP - General 07/26/15 documented as of this encounter
--- OUTSIDE RECORDS SUMMARY | 2024-04-08 02:34 | XMS_ITS | Encounter Summary ---
Author Organization [facility] Address [address] [place] [address] Care Team Providers Care Handy Worker Name Role Phone Unavailable Primary Care Provider Unavailabl e Encounter Details Date Type Department Care Team (Late st Contact Info) Description 09/19/2008 Before PRISM Converted Visit (Maple) [facility] - Maple conversion [address] [place] [address] Jeyson Bryant MD [address] [place] [address] Social History Tobacco Use Types Packs/Day Years Used Date Smoking Tobacco: Never Assessed Sex and Gender Information Value Date Recorded Sex Assigned at Not on file Gender Identity Not on file Sexual Orientation Not on file documented as of this encounter Plan of Treatment Not on file documented as of this encounter Procedures Procedure Name Priority Date/Time Associated Diagnosis Comments SURGICAL PATHOLOGY Routine 09/19/2008 0:00 EST documented in this encounter Results * SURGICAL PATHOLOGY (09/19/2008 0:00 EST) Pathology Report: SURGICAL PATHOLOGY REPORT ? Reports generated via electronic interface contain original data; ? however they are lacking the format of the original report. ? Caution should be taken when reading/interpreti ng unformatted reports. ? Name: ? ANA, JENNIFER L ? Accession #: ? [id number] ? : ? 1960 (Age: 48) ??F ? Collect Date: ? 09/19/2008 ? Location: ? [facility] ? Receive Date: ? 09/19/2008 ? Provider: JEYSON BRYANT MD ? Copy to: KAYLIE EDUARDO MD ? PETER B JESUS MD ? Final Pathologic Diagnosis: ? A. ?Small bowel, terminal ileum, biopsy: ? 1. ?Ileal mucosa with no specific pathologic features. ? B. ?Colon, cecum, biopsies: ? 1. ?Colonic mucosa with focal eosinophilic collections suggestive of ? crypt rupture. ??See comment. ? C. ?Colon, transverse, biopsies: ? 1. ?Chronic, moderately to severe active colitis. ? - No dysplasia. ?? See comment. ? D. ?? Colon, descending, biopsies: ? 1. ?? Chronic, inactive colitis. ? E. ?Colon, sigmoid, polypectomy: ?1. ?Polypoid colonic mucosa with reactive/regenerat juan alberto changes. ? F. ?Colon, sigmoid, 20 cm, biopsies: ?1. ?Chronic, inactive colitis with reactive hyperplastic changes. ? G. ?Rectum, biopsies: ?1. ?Rectal mucosa with hyperplastic changes. ? Comment: ? Histologic sections of the cecum demonstrate architecturally normal colonic mucosa with focal eosinophilic collections. ??These findings may represent ? ruptured crypts. ??There is a chronic, moderate to severely active colitis ? identified within the transverse colon with superficial ulceration. ??There is no dysplasia in any of the biopsies. ??Taken together, the findings of this biopsy ?? series are compatible with a partially treated ulcerative colitis. ??Dr. Brady ?? Moise has reviewed this case in consultation, and agrees with this ? interpretation. ??(Dr. Dunn)/mpl ? Document reviewed and electronically signed by: ? Nba Dunn MD ? Report ??Date: 09/23/2008 17:09 ? By the signature above, the attending physician certifies that he/she has ? personally conducted a gross and/or microscopic examination of the described ? specimens and rendered or confirmed the above diagnosis. ? Specimen(s) Received: ? A. ?Bx terminal ileum ? B. ? Bx cecum ? C. ? Bx transverse colon ? D. ? Bx descending colon ? E. ? Bx sigmoid polyp ? F. ? Bx sigmoid at 20 cm ? G. ? Bx rectum ? Clinical History: ? Personal Hx ulcerative colitis ? Gross Description: ? [facility] Ana and bx terminal ? ileum are two biopsies measuring 0.3 x 0.2 x 0.2 cm and 0.3 x 0.3 x 0.2 cm. ? The specimens are submitted intact as (A). ? Received in [facility] fixative labelled Ana and bx cecum are two ? biopsies measuring 0.3 x 0.2 x 0.2 cm and 0.4 x 0.4 x 0.2 cm. ??The specimens are submitted intact as (B). ? Received in [facility] fixative labelled Ana and bx transverse colon are six biopsies which vary in size from 0.3 x 0.2 x 0.2 cm up to 0.5 x 0.3 x ?? 0.2 cm. ??The specimens are submitted intact as (C1) and (C2). ? Received in [facility]'s fixative labelled Ana and bx descending colon are three biopsies which vary in size from 0.2 x 0.2 x 0 .2 cm up to 0.3 x 0.2 x 0.1cm. ??The specimens are submitted intact as (D). ? Received in [facility]'s fixative labelled Ana and bx sigmoid polyp are three biopsies which vary in size from 0.3 x 0.2 x 0.1 cm up to 0.4 x 0.3 x 0.2 cm. ??The specimens are submitted intact as (E). ? Received in [facility]'s fixative labelled Ana and sigmoid colon bx at ?? 20 cm are three biopsies which vary in size from 0.2 x 0.2 x 0.2 cm up to 0.3 x 0.3 x 0.2 cm. ??The specimens are submitted intact as (F). ? Received in [facility] fixative labelled Ana and bx rectum are four ?? biopsies which vary in size from 0.2 x 0.2 x 0.2 cm up to 0.3 x 0.3 x 0.3 cm. ?? The specimens are submitted entirely as (G). (Lesvia Broussard)/mpl ? End of Report ? NEMESIO MARX 09/19/2008 09/19/2008 8:4 2 EST Jeyson Bryant MD PATHOLOGY ORDERABLE S NEMESIO MARX [address] [place] [address] documented in this encounter Visit Diagnoses Not on filedocumented in this encounter
--- OUTSIDE RECORDS SUMMARY | 2024-04-08 02:34 | XMS_ITS | Encounter Summary ---
Author Organization [facility] Address [facility] [place] [address] Care Team Providers Care Research Geologist Name Role Phone Marcio Carranza MD Primary Care Provider [phone] [phone] Encounter Details Date Type Department Care Team (Late st Contact Info) Description 08/14/2010 2:00 PM EST [place] [address] [facility] DR GASTROENTEROLOGY [place] [address] Social History Tobacco Use Types Packs/Day Years [...] AM EDT Hospital Encounter Non[place] [phone] Arrived 04/29/2024 9:50 [place] [address] [address] [facility] [place] [address] 04/29/2024 9:50 AM EDT Appointment MRI at [place] [address] [address] [facility] [place] [place] [address] 06/07/2024 2:30 PM EDT TH Visit (TeleHealth) Gastroenterology at [place] [address] [facility] [place]STRO[place] [address] 07/02/2024 2:00 PM EDT Appointment Non-Invasive Cardiology Lab [place] [address] [address] [facility] [place] [place] [address] 07/02/2024 4:40 PM EDT Office Visit Cardiology at [place] [address] [address] [facility] [place] [address] documented as of this encounter Visit Diagnoses Not on filedocumented in this encounter Care Teams Research Geologist Relationship Specialty Start Date End Date Marcio Carranza MD [address] [place] [address] PCP - General 08/07/10 11/10/17 documented as of this encounter
--- OUTSIDE RECORDS SUMMARY | 2024-04-08 02:34 | XMS_ITS | Encounter Summary ---
[place] [address] Care Team Providers Care Rate Quoting Operator Name Role Phone Marcio Carranza MD Primary Care Provider +1 [phone] Encounter Details Date Type Department Care Team (Late st Contact Info) Description 08/14/2010 [place] [phone] Eden Reynoso MD [address] [place] [address] Social History Tobacco Use Types Packs/Day Years [...] AM EDT Hospital Encounter Non-Invasive [place] [phone] Arrived 04/29/2024 9:50 AM EDT Appointment [place] [address] Luis Alfredo Velazquez MD [facility] [place] [address] 04/29/2024 9:50 AM EDT [place] [address] Luis Alfredo Velazquez MD [facility] [place] [address] 06/07/2024 2:30 PM EDT TH Visit (TeleHealth) [place] [address] Dajuan Rachel MD [facility] [place] [address] 07/02/2024 2:00 PM EDT Appointment Non-[place]vasive [place] [address] Luis Alfredo Velazquez MD [facility] [place] [address] 07/02/2024 4:40 PM EDT Office Visit Cardiology at [place] [phone] Luis Alfredo Velazquez MD [facility] [place] [address] documented as of this encounter Procedures Procedure Name Priority Date/Time Associated Diagnosis Comments IRON AND TIBC Routine 08/14/2010 3:52 PM EST CRP, CARDIAC RISK (HS CRP) Routine 08/14/2010 3:52 PM EST FERRITIN Routine 08/14/2010 3:52 PM EST CK Routine 08/14/2010 3:52 PM EST HEPATIC FUNCTION PANEL Routine 08/14/2010 3:52 PM EST documented in this encounter Results * HIGH SENSITIVITY CRP (08/14/2010 3:52 PM EST) [facility] CRP High Sens 49.9 mg/L [facility] Comment: result rechecked, blr Interpretations: 1) For cardiac risk assessment, two values (fasting or nonfasting sample acceptable) taken at least 2 weeks apart, should be averaged to provide a more reliable estimate of marker level. ??This laboratory uses the recommendations from the AHA/CDC Scientific Statement for interpretations of future risks of cardiovascular events: ? <1.0 mg/L: low risk 1.0 - 3.0 mg/L: moderate risk >3.0 mg/L: high risk groups for future cardiovascular events 2) The general reference range of apparently healthy individuals using this test is <5.0 mg/L (derived from the test package insert) A few words of caution: For cardiac assessment, when a value >10 mg/L is encountered, there should be a search for an acute inflammatory condition or infection (in patients with acute inflammation, the concentration can increase to >500 mg/L). ??The >10 mg/L should be discarded if such a situation exists, since the risk for coronary heart disease cannot be provided, and a repeat specimen, taken at least two weeks after resolution of the acute inflammatory condition, may allow for appraisal of coronary risk information. References: 1. Demian VASQUEZ et. al. ??AHA/CDC Scientific Statement: Markers of Inflammation and Cardiovascular Disease. ??Circulation 2003; 107:499-511 2. Ivania PM. ??Clinical applications of C-reactive protein for cardiovascular disease detection and prevention. ??Circulation 2003; 107:363-369 Blood specimen (specimen) 08/14/2010 3:52 PM EST 08/14/2010 4:05 PM EST Eden Reynoso MD CHEMISTRY ORDERABLES [facility] * (ABNORMAL) FERRITIN (08/14/2010 3:52 PM EST) Ferritin 199(H) 15 - 150 ng/mL CERNER MILLENNIUM Comment: Pediatric reference ranges not verified at [facility], interpret with caution. Reference ranges for females greater than 50 years of age approach values for men, i.e., 30-400 ng/mL. Blood specimen (specimen) 08/14/2010 3:52 PM EST 08/14/2010 4:05 PM EST Eden Reynoso MD CHEMISTRY ORDERABLES Performing Organization Address [facility] de Phone Number CERNER MILLENNIUM * (ABNORMAL) IRON AND TIBC (08/14/2010 3:52 PM EST) Pathologist [facility] Iron 40 30 - 150 mcg/dL CERNER MILLENNIUM TIBC 284 250 - 450 mcg/dL CERNER MILLENNIUM Iron Saturation 14(L) 20 - 50 % CERN ER MILLENNIUM Blood specimen (specimen) 08/14/2010 3:52 PM EST 08/14/2010 4:05 PM EST Eden Reynoso MD CHEMISTRY ORDERABLES Performing Organization Address [facility] de Phone Number CERNER MILLENNIUM * (ABNORMAL) HEPATIC FUNCTION PANEL (08/14/2010 3:52 PM EST) Pathologist [facility] Total Protein 8.3 6.4 - 8.3 gm/dL CERNER MILLENNIUM Albumin 4.1 3.2 - 5.2 gm/dL CERNER MILLENNIUM AST 63(H) 0 - 30 unit/L CERNER MILLENNIUM ALT 69(H) 0 - 30 unit/L CERNER MILLENNIUM Alk Phos 135(H) 40 - 104 unit/L CERNER MILLENNIUM Total Bilirubin 0.2 0.2 - 1.3 mg/dL CERNER MILLENNIUM Bili, Direct 0.1 0.0 - 0.3 mg/dL CERNER MILLENNIUM Blood specimen (specimen) 08/14/2010 3:52 PM EST 08/14/2010 4:05 PM EST Eden Reynoso MD CHEMISTRY ORDERABLES Performing Organization Address [facility]/ZIP Co de Phone Number CERNER MILLENNIUM * CK (08/14/2010 3:52 PM EST) CK, Total 135 0 - 160 unit/L TYSHAWN RICKETTS Blood specimen (specimen) 08/14/2010 3:52 PM EST 08/14/2010 4:05 PM EST Eden Reynoso MD CHEMISTRY ORDERABLES Performing Organization Address City/State/[facility] Co de Phone Number TYSHAWN RICKETTS documented in this encounter Visit Diagnoses Not on filedocumented in this encounter Care Teams Rate Quoting Operator Relationship Specialty Start Date End Date Marcio Carranza MD [address] [place] [address] PCP - General 08/07/10 11/10/17 documented as of this encounter
--- OUTSIDE RECORDS SUMMARY | 2024-04-08 02:34 | XMS_ITS | Encounter Summary ---
[place] [address] Care Team Providers Care Security Screener Name Role Phone Marcio Carranza MD Primary Care Provider [phone] [phone] Encounter Details Date Type Department Care Team (Late st Contact Info) Description 08/14/2010 2:45 PM EST [place] [address] Eden Reynoso MD [address] [place] [address] [place] [address] Social History Tobacco Use Types Packs/Day Years [...] Encounter Non-Invasive [place] [address] Arrived 04/29/2024 9:50 AM [place] [address] Luis Alfredo Velazquez MD [facility] [place] [address] 04/29/2024 9:50 AM EDT Appointment MRI at [place] [phone] Luis Alfredo Velazquez MD [facility] [place] [address] 06/07/2024 2:30 PM EDT TH Visit (TeleHealth) Gastroenterology at [place] [address] Dajuan Rachel MD [facility] [place] [address] 07/02/2024 2:00 PM EDT Appointment Non-Invasive Cardiology Lab [address] Luis Alfredo Velazquez MD [facility] [place] [address] 07/02/2024 4:40 PM EDT Office Visit Cardiology at [address] [address] Luis Alfredo Velazquez MD [facility] [place] [address] documented as of this encounter Visit Diagnoses Not on filedocumented in this encounter Care Teams Security Screener Relationship Specialty Start Date End Date Marcio Carranza MD [address] [place] [address] PCP - General 08/07/10 11/10/17 documented as of this encounter
--- OUTSIDE RECORDS SUMMARY | 2024-04-08 02:34 | XMS_ITS | Encounter Summary ---
Author Organization [facility] Address [address] [place] [address] Care Team Providers Care Consulting Analyst Name Role Phone Marcio Carranza MD Primary Care Provider Unav ailable Encounter Details Date Type Department Care Team (Late st Contact Info) Description 02/03/2021 Lab Requisition [facility] Pathology & Laboratory Medicine - [address] [address] Outr Resulting Lab, Provider Social History Tobacco [...] Diagnosis Comments QUANTIFERON TB GOLD PLUS Routine 02/02/2021 14:45 EDT documented in this encounter Results * QUANTIFERON TB GOLD PLUS (02/02/2021 14:45 EDT) [facility] Quantiferon Interpretation Negative Negative 02/07/2021 13:59 EDT [facility] Comment: No interferon-gamma response to [...] CASE. TB1 Ag minus Nil 0.02 IU/ml 02/08/20 13:59 EDT [facility] TB2 Ag minus Nil 0.09 IU/mL 02/08/20 13:59 EDT [facility] Blood VENOUS BLOOD / Unknown 02/02/2021 14:45 EDT 02/03/2021 21:37 EDT Narrative [facility] - 02/07/2021 13:59 EDT Results were obtained with the [employer] QuantiFERON-TB Gold Plus CASE. Provider Outr Resulting Lab CHEMISTRY & BLOOD GAS ORDERABLES [facility] [address] [place] [address] documented in this encounter Visit Diagnoses Not on filedocumented in this encounter Care Teams Consulting Analyst Relationship Specialty Start Date End Date Marcio Carranza MD PCP - General 07/26/15 documented as of this encounter
--- OUTSIDE RECORDS SUMMARY | 2024-04-08 02:34 | XMS_ITS | Encounter Summary ---
Author Organization [facility] Address [address] [place] [address] Care Team Providers Care Eyeglass Fitter Name Role Phone Marcio Carranza MD Primary Care Provider Unav ailable Encounter Details Date Type Department Care Team (Late st Contact Info) Description 05/30/2023 Lab Requisition [facility] Pathology & Laboratory Medicine - [address] [address] Outr Resulting Lab, Provider Social History Tobacco [...] Diagnosis Comments TISSUE TRANSGLUTAMINASE ANTIBODY, IGA Routine 05/30/2023 14:40 EDT documented in this encounter Results * TISSUE TRANSGLUTAMINASE AB, IGA (05/30/2023 14:40 EDT) Tissue Transglutaminase Antibody IGA <1.2 <4.0 U/mL 06/02/2023 11:50 EDT [facility] Comment: A negative result may be due to IgA deficiency and does not rule out celiac disease. ? Negative: ??<4.0 U/mL ? Weak Positive: ??4.0 - 10.0 U/mL ? Positive: ??>10.0 U/mL Results were obtained with the [employer] Lite R h-tTG IgA CASE assay on the [employer] DSX. Blood VENOUS BLOOD / Unknown 05/30/2023 14:40 EDT 05/30/2023 21:40 EDT Provider Outr Resulting Lab IMMUNOLOGY A ND SEROLOGY ORDERABLES Performing Organization Address City/State/[facility] Co de Phone Number [facility] [address] [place] [address] documented in this encounter Visit Diagnoses Not on filedocumented in this encounter Care Teams Eyeglass Fitter Relationship Specialty Start Date End Date Marcio Carranza MD PCP - General 07/26/15 documented as of this encounter
--- OUTSIDE RECORDS SUMMARY | 2024-04-08 02:34 | XMS_ITS | Encounter Summary ---
Author Organization [facility] Address [address] [place] [address] Care Team Providers Care Flight Director Name Role Phone Marcio Carranza MD Primary Care Provider Unav ailable Encounter Details Date Type Department Care Team (Late st Contact Info) Description 05/30/2023 Lab Requisition [facility] Pathology & Laboratory Medicine - [address] [address] Outr Resulting Lab, Provider Social History Tobacco [...] Procedure Name Priority Date/Time Associated Diagnosis Comments IGA Routine 05/30/2023 14:40 EDT documented in this encounter Results * (ABNORMAL) IGA (05/30/2023 14:40 EDT) IgA 536(H) 85 - 499 mg/dL 06/02/2023 10:49 EDT [facility] Blood VENOUS BLOOD / Unknown 05/30/2023 14:40 EDT 05/30/2023 21:40 EDT Provider Outr Resulting Lab CHEMISTRY & BLOOD GAS ORDERABLES [facility] [address] [place] [address] documented in this encounter Visit Diagnoses Not on filedocumented in this encounter Care Teams Flight Director Relationship Specialty Start Date End Date Marcio Carranza MD PCP - General 07/26/15 documented as of this encounter
--- OUTSIDE RECORDS SUMMARY | 2024-04-08 02:34 | XMS_ITS | Encounter Summary ---
Author Organization [facility] Address [facility] [place] [address] Care Team Providers Care Director Strategic Account Management Name Role Phone Marcio Carranza MD Primary Care Provider +1 [phone] Encounter Details Date Type Department Care Team (Late st Contact Info) Description 08/15/2010 12:30 PM EST Procedure visit [place] [address] Social History Tobacco Use Types Packs/Day Years [...] AM EDT Hospital Encounter Non-[place] [phone] Arrived 04/29/2024 9:50 AM [place] [phone] Luis Alfredo Velazquez MD [facility] [place] [address] 04/29/2024 9:50 AM EDT Appointment MRI at [place] [phone] Luis Alfredo Velazquez MD [facility] [place] [address] 06/07/2024 2:30 PM EDT TH Visit (TeleHealth) [place] [address] Dajuan Rachel MD [facility] [place]STRO[place] [address] 07/02/2024 2:00 PM EDT Appointment Non-Invasive Cardiology Lab [place] [phone] Luis Alfredo Velazquez MD [facility] [place] [address] 07/02/2024 4:40 PM EDT Office Visit Cardiology at [place] [phone] Luis Alfredo Velazquez MD [facility] [place] [address] documented as of this encounter Visit Diagnoses Not on filedocumented in this encounter Care Teams Director Strategic Account Management Relationship Specialty Start Date End Date Marcio Carranza MD [address] [place] [address] PCP - General 08/07/10 11/10/17 documented as of this encounter
--- OUTSIDE RECORDS SUMMARY | 2024-04-08 02:34 | XMS_ITS | Encounter Summary ---
Author Organization [facility] Address [facility] [place] [address] Care Team Providers Care Transportation Technician Name Role Phone Marcio Carranza MD Primary Care Provider +1 [phone] Encounter Details Date Type Department Care Team (Late st Contact Info) Description 02/08/2011 External Results [place] [phone] Marc Chan MD [facility] [place] [address] Social History Tobacco Use Types Packs/Day Years Used Date Smoking Tobacco: Never Alcohol Use Standard Drinks/Week Comments [...] AM EDT Hospital Encounter Non-[place] [address] Arrived 04/29/2024 9:50 AM EDT Appointment MRI at [place] [phone] Luis Alfredo Velazquez MD [facility] [place] [address] 04/29/2024 9:50 AM EDT Appointment MRI at [place] [phone] Luis Alfredo Velazquez MD [facility] [place] [address] 06/07/2024 2:30 PM EDT TH Visit (TeleHealth) Gastroenterology at [address] Dajuan Rachel MD [facility] [place] [address] 07/02/2024 2:00 PM EDT Appointment Non-Invasive Cardiology Lab [address] Luis Alfredo Velazquez MD [facility] [place] [address] 07/02/2024 4:40 PM EDT Office Visit Cardiology at [place] [phone] Luis Alfredo Velazquez MD [facility] [place] [address] documented as of this encounter Procedures Procedure Name Priority Date/Time Associated Diagnosis Comments LAB SCAN Routine 02/07/2011 documented in this encounter Results * Scan Doc: Lab (02/07/2011) Marc Chan MD MEDIA MGR SCAN EXT O RDR/RSLT documented in this encounter Visit Diagnoses Not on filedocumented in this encounter Care Teams Transportation Technician Relationship Specialty Start Date End Date Marcio Carranza MD [address] [place] [address] PCP - General 08/07/10 11/10/17 documented as of this encounter
--- OUTSIDE RECORDS SUMMARY | 2024-04-08 02:34 | XMS_ITS | Encounter Summary ---
Author Organization [facility] [place] [address] Care Team Providers Care Compressor Technician Name Role Phone Marcio Carranza MD Primary Care Provider [phone] Encounter Details Date Type Department Care Team (Late st Contact Info) Description 08/15/2010 1:00 PM EST [place] [address] [address] STARR Discharge Disposition: Home Social History Tobacco Use [...] AM EDT Hospital Encounter Non-[place] [address] Arrived 04/29/2024 9:50 AM EDT [place] [address] Luis Alfredo Velazquez MD [facility] [place] [place] [address] 04/29/2024 9:50 AM EDT Appointment MRI at [address] Luis Alfredo Velazquez MD [facility] [place] [place] [address] 06/07/2024 2:30 PM EDT TH Visit (TeleHealth) [place] [address] Dajuan Rachel MD [facility] [place] [address] 07/02/2024 2:00 PM EDT Appointment Non-Invasive Cardiology Lab [place] [phone] Luis Alfredo Velazquez MD [facility] [place] [address] 07/02/2024 4:40 PM EDT Office Visit Cardiology at [place] [phone] Lusi Alfredo Velazquez MD [facility] [place] [place] [address] documented as of this encounter Visit Diagnoses Not on filedocumented in this encounter Care Teams Compressor Technician Relationship Specialty Start Date End Date Marcio Carranza MD [address] [place] [address] PCP - General 08/07/10 11/10/17 documented as of this encounter
--- OUTSIDE RECORDS SUMMARY | 2024-04-08 02:34 | XMS_ITS | Encounter Summary ---
[place] [address] Care Team Providers Care Motorized Squad Captain Name Role Phone Marcio Carranza MD Primary Care Provider [phone] Encounter Details Date Type Department Care Team (Late st Contact Info) Description 10/15/2010 8:45 AM EST [place] [address] Eden Reynoso MD [address] [place] [address] [place] [address] Discharge Disposition: Home Social History Tobacco Use [...] AM EDT Hospital Encounter Non-[place] [address] Arrived 04/29/2024 9:50 AM [place] [address] Luis Alfredo Velazquez MD [facility] [place] [address] 04/29/2024 9:50 AM EDT Appointment MRI at [place] [address] Luis Alfredo Velazquez MD [facility] [place] [address] 06/07/2024 2:30 PM EDT TH Visit (TeleHealth) Gastroenterology at [place] [address] Dajuan Rachel MD [facility] [place] [address] 07/02/2024 2:00 PM EDT Appointment Non-Invasive Cardiology Lab [place] [address] Luis Alfredo Velazquez MD [facility] [place] [address] 07/02/2024 4:40 PM EDT Office Visit Cardiology at [place] [phone] Luis Alfredo Velazquez MD [facility] [place] [address] documented as of this encounter Visit Diagnoses Not on filedocumented in this encounter Care Teams Motorized Squad Captain Relationship Specialty Start Date End Date Marcio Carranza MD [address] [place] [address] PCP - General 08/07/10 11/10/17 documented as of this encounter
--- OUTSIDE RECORDS SUMMARY | 2024-04-08 02:34 | XMS_ITS | Encounter Summary ---
Author Organization [facility] Address [address] [place] [address] Care Team Providers Care Sales Correspondence Clerk Name Role Phone Unavailable Primary Care Provider Unavailabl e Encounter Details Date Type Department Care Team (Late st Contact Info) Description 03/06/2011 Results Only [facility]- PRISM [phone] Demetris Rubin, PLANOGRAMMER [address] [place], [place] [id number] Social History Tobacco Use Types Packs/Day Years Used Date Smoking Tobacco: Never Assessed Sex and Gender Information Value Date Recorded Sex Assigned at Not on file Gender Identity Not on file Sexual Orientation Not on file documented as of this encounter Plan of Treatment Not on file documented as of this encounter Procedures Procedure Name Priority Date/Time Associated Diagnosis Comments PAP TEST- RESULT ONLY Routine 03/06/2011 0:00 EDT documented in this encounter Results * PAP TEST- RESULT ONLY (03/06/2011 0:00 EDT) Pathology Report: CYTOPATHOLOGY REPORT ? Reports generated via electronic interface contain original data; ? however they are lacking the format of the original report. ? Caution should be taken when reading/interpreti ng unformatted reports. ? Name: ? KIM FUNES ? Accession #: ? [id number] ? : ? 1960 (Age: 50) ??F ?Collect Date: ? 03/06/2011 ? Location: ? [facility] ? Receive Date: ? 03/08/2011 ? Provider: ?DEMETRIS MACLEOD PLANOGRAMMER ? Copy to: ? Specimen/Source: ?Pap Test, Cervix, ThinPrep Imaging System with manual ?? evaluation ? Last Menstrual Period: ? Nov. 2009 ? SPECIMEN ADEQUACY ? Satisfactory for Evaluation ? - transformation zone component present ? GENERAL CATEGORIZATION ? Negative for Intraepithelial Lesion or Malignancy ? Document reviewed and electronically signed by: ? Jenifer Dashawn, CT(ASCP) ? Report Date: ??03/11/2011 11:23 ? End of Report ? NEMESIO MARX 03/06/2011 03/08/2011 Demetrisfernando Rubin PLANOGRAMMER PATHOLOGY ORDERAB LES [facility] [address] [place] [address] documented in this encounter Visit Diagnoses Not on filedocumented in this encounter
--- OUTSIDE RECORDS SUMMARY | 2024-04-08 02:34 | XMS_ITS | Encounter Summary ---
Author Organization [facility] [place] [address] Care Team Providers Care Electrode Turner And Finisher Name Role Phone Marcio Carranza MD Primary Care Provider [phone] Encounter Details Date Type Department Care Team (Latest Contact Info) Description 01/02/2011 7:47 AM EDT - 01/02/2011 11:15 AM EDT Hospital Encounter [place] [phone] Yaquelin Chan MD [facility] DR [place] [address] Discharge Disposition: Home Social History Tobacco Use [...] Sign Reading Time Taken Comments Blood Pressure 137/82 01/02/2011 10:19 AM EDT Pulse 64 01/02/2011 10:19 AM EDT Temperature 36.4 ??C (97.5 ??F) 01/02/2011 8:23 AM ED T Respiratory Rate 16 01/02/2011 10:19 AM EDT Oxygen Saturation 95% 01/02/2011 10:19 AM EDT Inhaled Oxygen Concentration - - Weight - - Height - - Body Mass Index - - documented in this encounter Discharge Instructions * Patient Instructions* Yaquelin Chan MD - 01/02/2011 10:14 AM EDT Please see Recommendations in your procedure report. * Attachments The following attachments cannot be sent through Care Everywhere. * Colonoscopy: What to Expect at Home documented in this encounter Medications at Time of Discharge Medication Sig Dispensed Refills Start Date End Date multivitamin (THERAGRAN) tablet 10/15/2010 folic acid (FOLVITE) 1 mg tablet 1 MG = 1 Tablet(s), PO, Once daily 10/15/2010 ascorbic acid (VITAMIN C) 1,000 mg tablet 1000MG, PO, Once daily 10/15/2010 adalimumab (HUMIRA) 40 mg/0.8 mL injection 40 mg SQ every other week SC 10/31/2010 01/22/2011 fluticasone (FLOVENT HFA) 110 mcg/Actuation inhaler 10/15/2010 FERROUS FUMARATE (IRON ORAL) 10/15/2010 02/21/2011 ursodiol (ACTIGALL) 300 mg capsule 300mg, PO, Three times daily 10/15/2010 09/19/2011 vitamin E 400 unit capsule 800UNIT, PO, Once daily 10/15/2010 02/07/2021 Hepatitis A & B Vaccine, PF, (TWINRIX, PF,) 720-20 EL unit-mcg/mL Syrg 1 Syringe(s), IM, x 1, 1 month and 6 month 10/15/2010 08/19/2011 documented as of this encounter H&P Notes * Yaquelin Chan MD - 01/02/2011 9:15 AM EDT H&P done prior to procedure and documented in Provation. documented in this encounter Procedure Notes * Provider, Scanning - 01/04/2011 10:48 AM EDTAssociated Order(s): SCAN DOC: ORDS - PROVIDER CARE * Provider, Scanning - 01/03/2011 3:40 PM EDTAssociated Order(s): ENDOSCOPY SCAN documented in this encounter Miscellaneous Notes * Miscellaneous - Provider, Scanning - 01/03/2011 3:52 PM EDT * OR Attestation - Yaquelin Chan MD - 01/02/2011 10:14 AM EDT Yaquelin Chan MD * OR Attestation - Yaquelin Chan MD - 01/02/2011 10:13 AM EDT .att * Op Note - Yaquelin Chan MD - 01/02/2011 10:13 AM EDT See provation report in procedure notes in encounters. * Miscellaneous - Provider, Scanning - 01/02/2011 9:51 AM EDT documented in this encounter Plan of Treatment Upcoming Encounters Date Type Department Care Team (Late st Contact Info) Description 04/19/2024 10:00 AM EDT Hospital Encounter Non[place] [phone] Arrived 04/29/2024 9:50 AM ED[place] [phone] Luis Alfredo Velazquez MD [facility] [address] [place] [phone] 04/29/2024 9:50 AM EDT Appointment MRI at [address] Luis Alfredo Velazquez MD [facility] [place] [place] [address] 06/07/2024 2:30 PM EDT TH Visit (TeleHealth) Gastroenterology at [place] [phone] Dajuan Rachel MD [facility] [place] [address] 07/02/2024 2:00 PM EDT Appointment Non-Invasive Cardiology Lab [place] [phone] Luis Alfredo Velazquez MD [facility] [place] [place] [address] 07/02/2024 4:40 PM EDT Office Visit Cardiology at [place] [phone] Luis Alfredo Velazquez MD [facility] [place] [address] documented as of this encounter Procedures Procedure Name Priority Date/Time Associated Diagnosis Comments ORDS - PROVIDER CARE SCAN 01/04/2011 10:48 AM EDT ENDOSCOPY SCAN 01/03/2011 3:40 PM EDT SURGICAL PATHOLOGY REPORT Routine 01/02/2011 10:14 AM EDT SURGICAL PATHOLOGY REPORT Routine 01/02/2011 10:14 AM EDT COLONOSCOPY, POLYPECTOMY, REMOVAL LESION BY SNARE (WRVU 4.57) 01/02/2011 9:20 AM EDT UC FOLLOWUP COLONOSCOPY FLEXIBLE, WITH BX (WRVU 3.56) 01/02/2011 9:20 AM EDT UC FOLLOWUP COLONOSCOPY Routine 01/02/2011 9:07 AM EDT documented in this encounter Results * SCAN DOC: ORDS - PROVIDER CARE (01/04/2011 10:48 AM EDT) Narrative 01/04/2011 10:48 AM EDT Procedure Note Provider, Scanning - 01/04/2011 10:48 AM EDT Scanning Provider MEDIA MGR SCAN EXT O RDR/RSLT * ENDOSCOPY SCAN (01/03/2011 3:40 PM EDT) Narrative 01/03/2011 3:40 PM EDT Procedure Note Provider, Scanning - 01/03/2011 3:40 PM EDT Scanning Provider MEDIA MGR SCAN EXT O RDR/RSLT * Surgical Pathology Report (01/02/2011 10:14 AM EDT) Surgical Pathology Report 00- [id number] ? Location: 4T The signing pathologist has (i) examined the relevant preparation(s) for the specimen(s) and (ii) rendered or confirmed the diagnosis(es). . ?Pathology Surgical Pathology Final Report Clinical Information Specimen Submitted: A - Ileum: nl B - Right colon: grossly inflamed C - Transverse colon: grossly inflamed D - Descending colon: grossly inflamed E - Rectosigmoid: grossly inflamed F - Polyp at 40cm in sigmoid colon Clinical History/Diagnosi s: UC surveillance Gross Description A - Labeled/Fixative : Ileum, nl, formalin. Qty/Size/Weight: ?Four pieces, ranging from 0.2 cm to 0.3 cm in ?greatest dimension. Tissue Description: ?? Soft, brown tissues. Sections/Process ing: ??(T1) B - Labeled/Fixative : Right colon, grossly inflamed, formalin. Qty/Size/Weight: ?Multiple fragments, ranging from 0.2 cm to 0.3 cm in ?greatest dimension. Tissue Description: ?? Soft, brown tissues. Sections/Process ing: ??(T3) C - Labeled/Fixative : Transverse colon, grossly inflamed, formalin. Qty/Size/Weight: ?Multiple fragments, ranging from 0.1 cm to 0.3 cm in ?greatest dimension. Tissue Description: ?? Soft, brown tissues. Sections/Process ing: ??(T2) D - Labeled/Fixative : Descending colon, grossly inflamed, formalin. Qty/Size/Weight: ?Multiple fragments, ranging from 0.2 cm to 0.3 cm in ?greatest dimension. Tissue Description: ?? Soft, brown tissues. Sections/Process ing: ??(T3) E - Labeled/Fixative : Rectosigmoid, grossly inflamed, formalin. Qty/Size/Weight: ?Multiple fragments, ranging from 0.2 cm to 0.4 cm in ?greatest dimension. Tissue Description: ?? Soft, hyperemic, yellow-brown and brown-red soft tissues. Sections/Process ing: ??(T3) F - Labeled/Fixative : Polyp at 40 cm in sigmoid colon, formalin. Qty/Size/Weight: ?Single, 0.7 x 0.7 x 0.3 cm. Tissue Description: ?? Soft, polypoid, pink-brown tissue. Sections/Process ing: ??Inked and trisected. ??(T1) ??bds/EJR Microscopic Description Slides reviewed, microscopic description not recorded. Diagnosis Endoscopic biopsies - . Diagnosis A. ??Ileal mucosa within normal limits. B. ??Moderately active chronic colitis. C. ??Moderately active chronic colitis. D. ??Mildly active chronic colitis. E. ??Inactive chronic proctocolitis. Hyperplastic polyps. F. Inflammatory polyp. Note: ??The histologic features are suggestive of idiopathic inflammatory bowel disease. No dysplasia is seen. CR-0 01/04/11 AAS 01/04/11 Verified by: ? Dg Brown MD ?Pathologist ?(Electronic Signature) The attending pathologist whose signature appears on this report has reviewed all diagnostic slides and has edited the gross and/or microscopic portion of the report in rendering the final pathologic diagnosis. [facility] 01/02/2011 10:1 4 AM EDT Yaquelin Chan MD [facility] * SURGICAL PATHOLOGY REPORT (01/02/2011 10:14 AM EDT) Surgical Pathology Report ? [facility] ? Provider: ?? YAQUELIN CHAN ? Pt. Name: ?? KIM PEREZ ? Acc #: ?[id number] ?Pt. ? Col Date: ?? 01/02/2011 ? /Sex: ?1960,(50 years),Female ? Rec Date: ?? 01/02/2011 ? LOC: ?4T ? SURGICAL PATHOLOGY ? ---Pathologic Diagnosis--- ? Endoscopic biopsies - ? A. Ileal mucosa within normal limits. ? B. Moderately active chronic colitis. ? C. Moderately active chronic colitis. ? D. Mildly active chronic colitis. ? E. Inactive chronic proctocolitis. Hyperplastic polyps. ? F. Inflammatory polyp. ? Note: The histologic features are suggestive of idiopathic inflammatory ? bowel disease. No dysplasia is seen. ? CR-0 ? 01/04/11 ? AAS ? 01/04/11 Verified by: ? Dg Brown MD ? Pathologist ? (Electronic Signature) ? The attending pathologist whose signature appears on this report has ? reviewed all diagnostic slides and has edited the gross and/or ? microscopic portion of the report in rendering the final pathologic ? diagnosis. ? ---Microscopic Description--- ? Slides reviewed, microscopic description not recorded. ? ---Gross Description--- ? A - Labeled/Fixative : Ileum, nl, formalin. ? Qty/Size/Weight: ?Four pieces, ranging from 0.2 cm to 0.3 cm in ? greatest dimension. ? Tissue Description: ?? Soft, brown tissues. ? Sections/Process ing: ??(T1) ? B - Labeled/Fixative : Right colon, grossly inflamed, formalin. ? Qty/Size/Weight: ?Multiple fragments, ranging from 0.2 cm to 0.3 cm in ? greatest dimension. ? Tissue Description: ?? Soft, brown tissues. ? [facility] ? Provider: ?? YAQUELIN CHAN ? Pt. Name: ?? KIM PEREZ ? Acc #: ?[id number] ?Pt. ? Col Date: ?? 01/02/2011 ? /Sex: ?1960,(50 years),Female ? Rec Date: ?? 01/02/2011 ? LOC: ?4T ? SURGICAL PATHOLOGY ? Sections/Process ing: ??(T3) ? C - Labeled/Fixative : Transverse colon, grossly inflamed, formalin. ? Qty/Size/Weight: ?Multiple fragments, ranging from 0.1 cm to 0.3 cm in ? greatest dimension. ? Tissue Description: ?? Soft, brown tissues. ? Sections/Process ing: ??(T2) ? D - Labeled/Fixative : Descending colon, grossly inflamed, formalin. ? Qty/Size/Weight: ?Multiple fragments, ranging from 0.2 cm to 0.3 cm in ? greatest dimension. ? Tissue Description: ?? Soft, brown tissues. ? Sections/Process ing: ??(T3) ? E - Labeled/Fixative : Rectosigmoid, grossly inflamed, formalin. ? Qty/Size/Weight: ?Multiple fragments, ranging from 0.2 cm to 0.4 cm in ? greatest dimension. ? Tissue Description: ?? Soft, hyperemic, yellow-brown and brown-red soft tissues. ? Sections/Process ing: ??(T3) ? F - Labeled/Fixative : Polyp at 40 cm in sigmoid colon, formalin. ? Qty/Size/Weight: ?Single, 0.7 x 0.7 x 0.3 cm. ? Tissue Description: ?? Soft, polypoid, pink-brown tissue. ? Sections/Process ing: ??Inked and trisected. ??(T1) ??bds/EJR ? ---Clinical Information--- ? Specimen Submitted: ? A - Ileum: nl ? B - Right colon: grossly inflamed ? C - Transverse colon: grossly inflamed ? D - Descending colon: grossly inflamed ? E - Rectosigmoid: grossly inflamed ? F - Polyp at 40cm in sigmoid colon ? Clinical History/Diagnosi s: ? UC surveillance [facility] 01/02/2011 10:1 4 AM EDT Yaquelin Chan MD PATHOLOGY/CYTOLOGY [facility] * COLONOSCOPY (01/02/2011 9:07 AM EDT) COLONOSCOPY [facility] Endoscopy ___ Patient Name: Kim Perez ? Procedure Date: 01/02/2011 09:07:07 AM ? Date of : 1960 ? Age: 50 ? ___ Procedure: ? Colonoscopy Indications: ? High risk colon cancer surveillance: ? Ulcerative pancolitis Providers: ? Yaquelin Chan MD, Ramya Guido, ? RN, Nathaniel Oliva, Photographic Printer Referring : ?Marcoi Carranza MD, Dajuan Garcia ? MD Wilson Medicines: ? Fentanyl 125 micrograms IV, Midazolam ? 3 mg IV Complications: ? No immediate complications ___ Procedure: ? Pre-Anesthesia Assessment: ? - [...] procedure were verified by ? the physician and the nurse in the ? pre-procedure area in the procedure ? room. Mental Status Examination: ? alert and oriented. Airway ? Examination: normal oropharyngeal ? airway and neck mobility. Respiratory ? Examination: clear to auscultation. ? CV Examination: normal. Prophylactic ? Antibiotics: The patient does not ? require prophylactic antibiotics. ? Prior Anticoagulants: The patient has ? taken no previous anticoagulant or ? antiplatelet agents. ASA Grade ? Assessment: II - A [...] was withdrawn. The ? colonoscopy was performed with ease. ? The patient tolerated the procedure ? well. The quality of the bowel ? preparation was good and adequate to ? identify polyps. The ileocecal valve, ? appendiceal orifice, terminal ileum ? and rectum were photographed. Scope ? withdrawal time was 27 minutes. ? Findings: ? The terminal ileum appeared normal. Biopsies were ? taken with a cold forceps for histology. Inflammation ? characterized by erythema, granularity and aphthous ? ulcerations was found in a continuous and ? circumferential pattern from the rectum to the cecum. ? No sites were spared. This was moderate in severity. ? Four biopsies were taken every 10 cm with a cold ? forceps from the right colon, transverse colon, ? descending colon and rectosigmoid colon for ? ulcerative colitis surveillance. These biopsy ? specimens were sent to Pathology. A sessile polyp was ? found in the sigmoid colon. The polyp was 5 mm in ? size. The polyp was removed with a hot snare. ? Resection and retrieval were complete. ? Impression: ?- The examined portion of the ileum ? was normal. This was biopsied. ? - Inflammation was found from the ? rectum to the cecum secondary to ? pancolitis ulcerative colitis. This ? was biopsied. ? - One 5 mm polyp in the sigmoid ? colon. Resected and retrieved. Recommendation: ?- Await pathology results. ? - Repeat colonoscopy in 2 years for ? surveillance. ? Yaquelin Chan MD Signed Date: 01/02/2011 10:21:10 AM Number of Addenda: 0 ? Note initiated on 01/02/2011 09:07:07 AM PROVATION 01/02/2011 9:07 AM EDT Unknown GENERAL SURGICAL ORD ERABLES PROVATION documented in this encounter Visit Diagnoses Not on filedocumented in this encounter Active and Recently Administered Medications Times are shown in EDT. PRN Medication Order 12/31/2010 01/01/2011 01/02/2011 fentaNYL 50mcg/mL injection (COMPLETED) ONCE PRN, 1 dose, Starting on 01/02/11 at 0928, Until Fri01/02/11 at 09, Pain, Intra-Operative (Intra-Procedure), Routine 927 (Given - Provid er: Ramya Guido RN) fentaNYL 50mcg/mL injection (COMPLETED) Intravenous, ONCE PRN, 1 dose, Starting on Fri01/02/11 at 0933, Until Fri01/02/11 at 0933, Pain, Intra-Operative (Intra-Procedure), Routine 932 (Given - Provid er: Ramya Guido RN) midazolam (VERSED) injection (COMPLETED) ONCE PRN, 1 dose, Starting on Fri01/02/11 at 0928, Until Fri01/02/11 at 927, Sleep, Intra-Operative (Intra-Procedure), Routine 927 (Given - Provid er: Ramya Guido RN) midazolam (VERSED) injection (COMPLETED) Intravenous, ONCE PRN, 1 dose, Starting on Fri01/02/11 at 0933, Until Fri01/02/11 at 932, Sleep, Intra-Operative (Intra-Procedure), Routine 932 (Given - Provid er: Ramya Guido RN) documented in this encounter Care Teams Electrode Turner And Finisher Relationship Specialty Start Date End Date Marcio Carranza MD [address] [place] [address] PCP - General 08/07/10 11/10/17 documented as of this encounter
--- OUTSIDE RECORDS SUMMARY | 2024-04-08 02:34 | XMS_ITS | Encounter Summary ---
Author Organization [facility] Address [address] [place] [address] Care Team Providers Care Printing Film Stripper Name Role Phone Unavailable Primary Care Provider Unavailabl e Encounter Details Date Type Department Care Team (Late st Contact Info) Description 04/14/2014 Results Only [facility]- PRISM [phone] Demetris Rubin, CAFE ASSOCIATE [address] [place] [address] Social History Tobacco Use Types [...] Diagnosis Comments PAP TEST- RESULT ONLY Routine 04/14/2014 0:00 EDT documented in this encounter Results * PAP TEST- RESULT ONLY (04/14/2014 0:00 EDT) Pathology Report: CYTOPATHOLOGY REPORT Reports generated via electronic interface contain original data; however they are lacking the format of the original report. Caution should be taken when reading/interpreti ng unformatted reports. Name: ? KIM PEREZ ? Accession #: ? [id number] ? : ? 1960 (Age: 54) ??F ?Collect Date: ? 04/14/2014 ? Location: ? [facility] ? Receive Date: ? 04/18/2014 ? Provider: DEMETRIS RUBIN APRN Copy to: ? Final Report SPECIMEN ADEQUACY ? Satisfactory for Evaluation - transformation zone component present GENERAL CATEGORIZATION ? Negative for Intraepithelial Lesion or Malignancy ?? Menstrual/Pregnanc y Status: ??Post Menopausal Specimen/Source: ??Pap Test, Endocervix, ThinPrep Imaging System with manual evaluation Document reviewed and electronically signed by: ? Jennifer Ordaz, CT(ASCP) ? Report ??Date: 04/20/2014 10:21 HPV with Pap Test ? Date Ordered: ? 04/20/2014 ? Status: ?? Signed Out ?Date Complete: ? 04/22/2014 ? By: ??System Interface ? Date Reported: ? 04/22/2014 ? Interpretation RESULT: Negative for HPV. No E6 or E7 mRNA is detected from HPV types 16,18,31,33,35, 39,45,51,52,56,58, 59,66, and 68 by chain mender mediated amplification. Comments Document reviewed and electronically signed by: ? System Interface ? Report date: 04/22/2014 By the signature above, the attending physician certifies that he/she has personally conducted a gross and/or microscopic examination of the described specimens and rendered or confirmed the above diagnosis. End of Report [facility] 04/14/2014 04/18/2014 Demetris L MacLeod CAFE ASSOCIATE PATHOLOGY ORDERAB LES [facility] [address] [place] [address] documented in this encounter Visit Diagnoses Not on filedocumented in this encounter
--- OUTSIDE RECORDS SUMMARY | 2024-04-08 02:34 | XMS_ITS | Encounter Summary ---
Author Organization [facility] Address [address] [place] [address] Care Team Providers Care Blast Hole Driller Name Role Phone Marcio Carranza MD Primary Care Provider Unav ailable Encounter Details Date Type Department Care Team (Late st Contact Info) Description 06/27/2023 Lab Requisition [facility] Pathology & Laboratory Medicine - [address] [address] Outr Resulting Lab, Provider Social History Tobacco [...] Priority Date/Time Associated Diagnosis Comments IGA Routine 06/27/2023 14:40 EDT documented in this encounter Results * IGA (06/27/2023 14:40 EDT) IgA 496 85 - 499 mg/dL 06/30/2023 11:11 EDT [facility] Blood VENOUS BLOOD / Unknown 06/27/2023 14:40 EDT 06/27/2023 21:25 EDT Provider Outr Resulting Lab CHEMISTRY & BLOOD GAS ORDERABLES [facility] [address] [place] [address] documented in this encounter Visit Diagnoses Not on filedocumented in this encounter Care Teams Blast Hole Driller Relationship Specialty Start Date End Date Marcio Carranza MD PCP - General 07/26/15 documented as of this encounter
--- OUTSIDE RECORDS SUMMARY | 2024-04-08 02:34 | XMS_ITS | Encounter Summary ---
Author Organization [facility] Address [address] [place] [address] Care Team Providers Care Materials Planning Analyst Name Role Phone Marcio Carranza MD Primary Care Provider Unav ailable Encounter Details Date Type Department Care Team (Late st Contact Info) Description 05/16/2023 Lab Requisition [facility] Pathology & Laboratory Medicine - [address] [phone] Outr Resulting Lab, Provider Social History Tobacco [...] Priority Date/Time Associated Diagnosis Comments IGA Routine 05/16/2023 14:30 EDT documented in this encounter Results * (ABNORMAL) IGA (05/16/2023 14:30 EDT) IgA 557(H) 85 - 499 mg/dL 05/19/2023 10:37 EDT [facility] Blood VENOUS BLOOD / Unknown 05/16/2023 14:30 EDT 05/16/2023 20:54 EDT Provider Outr Resulting Lab CHEMISTRY & BLOOD GAS ORDERABLES [facility] [address] [place] [address] documented in this encounter Visit Diagnoses Not on filedocumented in this encounter Care Teams Materials Planning Analyst Relationship Specialty Start Date End Date Marcio Carranza MD PCP - General 07/26/15 documented as of this encounter
--- OUTSIDE RECORDS SUMMARY | 2024-04-08 02:34 | XMS_ITS | Encounter Summary ---
Author Organization [facility] Address [address] [place] [address] Care Team Providers Care Customs Broker Name Role Phone Marcio Carranza MD Primary Care Provider Unav ailable Encounter Details Date Type Department Care Team (Late st Contact Info) Description 08/02/2021 Lab Requisition [facility] Pathology & Laboratory Medicine - [address] [phone] Outr Resulting Lab, Provider Social History Tobacco [...] Procedure Name Priority Date/Time Associated Diagnosis Comments HEPATITIS B CORE ANTIBODY (TOTAL) Routine 08/02/2021 15:15 EST documented in this encounter Results * HEPATITIS B CORE ANTIBODY (TOTAL) (08/02/2021 15:15 EST) Hepatitis B Core Ab, Total Negative Negative 08/03/2021 10:48 EST [facility] Blood VENOUS BLOOD / Unknown 08/02/2021 15:15 EST 08/02/2021 21:06 EST Provider Outr Resulting Lab CHEMISTRY & BLOOD GAS ORDERABLES [facility] [address] [place] [address] documented in this encounter Visit Diagnoses Not on filedocumented in this encounter Care Teams Customs Broker Relationship Specialty Start Date End Date Marcio Carranza MD PCP - General 07/26/15 documented as of this encounter
--- OUTSIDE RECORDS SUMMARY | 2024-04-08 02:34 | XMS_ITS | Encounter Summary ---
Author Organization [facility] Address [address] [place] [address] Care Team Providers Care Glove Machine Operator Name Role Phone Marcio Carranza MD Primary Care Provider Unav ailable Encounter Details Date Type Department Care Team (Late st Contact Info) Description 06/13/2023 Lab Requisition [facility] Pathology & Laboratory Medicine - [address] [address] Outr Resulting Lab, Provider Social History Tobacco [...] Diagnosis Comments TISSUE TRANSGLUTAMINASE ANTIBODY, IGA Routine 06/13/2023 14:35 EDT documented in this encounter Results * TISSUE TRANSGLUTAMINASE AB, IGA (06/13/2023 14:35 EDT) Tissue Transglutaminase Antibody IGA <1.2 <4.0 U/mL 06/16/2023 12:43 EDT [facility] Comment: A negative result may be due to IgA deficiency and does not rule out celiac disease. ? Negative: ??<4.0 U/mL ? Weak Positive: ??4.0 - 10.0 U/mL ? Positive: ??>10.0 U/mL Results were obtained with the [employer] Lite R h-tTG IgA CASE assay on the [employer] DSX. Blood VENOUS BLOOD / Unknown 06/13/2023 14:35 EDT 06/13/2023 21:18 EDT Provider Outr Resulting Lab IMMUNOLOGY A ND SEROLOGY ORDERABLES Performing Organization Address City/State/[facility] Co de Phone Number [facility] [address] [place] [address] documented in this encounter Visit Diagnoses Not on filedocumented in this encounter Care Teams Glove Machine Operator Relationship Specialty Start Date End Date Marcio Carranza MD PCP - General 07/26/15 documented as of this encounter
--- OUTSIDE RECORDS SUMMARY | 2024-04-08 02:34 | XMS_ITS | Encounter Summary ---
Author Organization [facility] [address] Care Team Providers Care Pile Driving Setter Name Role Phone Marcio Carranza MD Primary Care Provider [phone] Reason for Visit * Reason Onset Date Comments Medication Refill 01/22/2011 Encounter Details Date Type Department Care Team (Late st Contact Info) Description 01/22/2011 Ref[place] [phone] Eden Reynoso MD [address] [place] [address] [place] [address] Spondylitis Social History Tobacco Use Types Packs/Day [...] AM EDT Hospital Encounter [place] [address] Arrived 04/29/2024 9:50 AM EDT Appointment MRI at [place] [address] Luis Alfredo Velazquez MD [facility] [place] [address] 04/29/2024 9:50 AM EDT Appointment MRI at [place] [address] Luis Alfredo Velazquez MD [facility] [place] [address] 06/07/2024 2:30 PM EDT TH Visit (TeleHealth) [place] [address] Dajuan Rachel MD [facility] [place] [address] 07/02/2024 2:00 PM EDT Appointment Non-Invasive Cardiology Lab [place] [address] Luis Alfredo Velazquez MD [facility] [place] [address] 07/02/2024 4:40 PM EDT Office Visit Cardiology at [address] Luis Alfredo Velazquez MD [facility] [place] [address] documented as of this encounter Visit Diagnoses Diagnosis Spondylitis Unspecified inflammatory spondylopathy documented in this encounter Care Teams Pile Driving Setter Relationship Specialty Start Date End Date Marcio Carranza MD [address] [place] [address] PCP - General 08/07/10 11/10/17 documented as of this encounter
--- OUTSIDE RECORDS SUMMARY | 2024-04-08 02:34 | XMS_ITS | Encounter Summary ---
Author Organization [facility] [place] [address] Care Team Providers Care Structural Steel Erection Supervisor Name Role Phone Marcio Devlin DO Primary Care Provider [phone] Encounter Details Date Type Department Care Team (Late st Contact Info) Description 03/17/2006 Orders [place] [address] Amandeep Miles Jr., MD [facility] OR[place]OPA[place] [address] Social History Tobacco Use Types Packs/Day Years Used Date Smoking Tobacco: Never Assessed [facility] Utilities Answer Date Recorded In the past 12 months has [employer], gas, oil, or water Purch threatened to shut off services in your [...] in a long-term (including now)? No 10/21/2023 IPV Inpatient Questions [...] AM EDT Hospital Encounter Non-[place] [address] Arrived 04/29/2024 9:50 AM ED[place] [address] Luis Alfredo Velazquez MD [facility] [place] [address] 04/29/2024 9:50 AM ED[place] [phone] Luis Alfredo Velazquez MD [facility] [place] [address] 06/07/2024 2:30 PM EDT TH Visit (TeleHealth) Gastroenterology at [place] [phone] Dajuan Rachel MD [facility] GASTROENTEROLOGY [place] [address] 07/02/2024 2:00 PM EDT Appointment Non-[place] [phone] Luis Alfredo Velazquez MD [facility] [place] [address] 07/02/2024 4:40 PM EDT Office Visit Cardiology at [address] [phone] Luis Alfredo Velazquez MD [facility] [place] [address] documented as of this encounter Procedures Procedure Name Priority Date/Time Associated Diagnosis Comments SURGICAL PATHOLOGY REPORT Routine 03/17/2006 2:36 PM EDT documented in this encounter Results * Surgical Pathology Report (03/17/2006 2:36 PM EDT) Surgical Pathology Report - ? Location: 3WST; 0318; B The signing pathologist has (i) examined the relevant preparation(s) for the specimen(s) and (ii) rendered or confirmed the diagnosis(es). . ?Pathology Surgical Pathology Final Report Clinical Information Specimen Submitted: A - Femoral head. lt. hip. Clinical History: pt. allergies please see chart. DJD. lt. hip. Gross Description Labeled/Fixative : ? Femoral head, left hip; fresh. Quantity/Size: ?One femoral head, 5.0 x 4.5 x 4.3 cm. Tissue Description: ?? A single peters-red femoral head. ?? Margin: ?_ ?? Articular surface: Peters-pink with focal granularity and pitting. ? Eburnation: ?Present. ? Osteophytes: ? Present. ?? Cut surface: ? Displays yellow-red trabeculated cut surface. ? Subchondral Sclerosis: ??Absent. ? Subchondral Cysts: ?Absent. Sections/Process ing: ??No sections are submitted. 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 ?? Gross surgical pathology examination. CR-0 03/20/06 AJE 03/20/06 Verified by: ? Cedric Wesley MD ?Pathologist ?(Electronic Signature) The attending pathologist whose signature appears on this report has reviewed all diagnostic slides and has edited the gross and/or microscopic portion of the report in rendering the final pathologic diagnosis. TYSHAWN RICKETTS 03/17/2006 2:36 PM EDT Amandeep Miles Jr., MD PATHOLOGY/CYTOLOG Y ORDERABLES TYSHAWN RICKETTS documented in this encounter Visit Diagnoses Not on filedocumented in this encounter Care Teams Structural Steel Erection Supervisor Relationship Specialty Start Date End Date Marcio Devlin DO [address] [place] [address] PCP - General Family Medicine 11/11/17 documented as of this encounter
--- OUTSIDE RECORDS SUMMARY | 2024-04-08 02:34 | XMS_ITS | Clinical Summary ---
Author Organization [facility] Address [address] [place] [address] Care Team Providers Care Director Of The Biophysics Facility Name Role Phone Marcio Carranza MD Primary Care Provider Unav ailable Social History Tobacco Use Types Packs/Day Years Used Date Smoking Tobacco: Never Assessed Sex and Gender Information Value Date Recorded Sex Assigned at Not on file Gender Identity Not on file Sexual Orientation Not on file Plan of Treatment Health Maintenance Due Date Last Done Comments Hepatitis C Screen 1960 RSV Immunization ( o r 60+ Years) (1 - 1-dose 60+ series) 2021 COVID-19 Vaccine (2022-24 season) 2023 Care Teams Director Of The [employer] Facility Relationship Specialty Start Date End Date Marcio Carranza MD PCP - General 07/26/15
--- OUTSIDE RECORDS SUMMARY | 2024-04-08 02:34 | XMS_ITS | Encounter Summary ---
Author Organization [facility] Address [address] [place] [address] Care Team Providers Care Manufacturing Controller Name Role Phone Marcio Carranza MD Primary Care Provider Unav ailable Encounter Details Date Type Department Care Team ([facility] st Contact Info) Description 06/27/2017 Results Only [facility] [phone] Evan Miller MD [address] [place] [address] Social History Tobacco Use Types Packs/Day Years [...] Diagnosis Comments PAP TEST- RESULT ONLY Routine 06/27/2017 0:00 EDT documented in this encounter Results * PAP TEST- RESULT ONLY (06/27/2017 0:00 EDT) Pathology Report: CYTOPATHOLOGY REPORT Reports generated via electronic interface contain original data; however they are lacking the format of the original report. Caution should be taken when reading/interpreti ng unformatted reports. Name: ? KIM PEREZ ? Accession #: ? [id number] ? : ? 1960 (Age: 57) ??F ?Collect Date: ? 06/27/2017 ? Location: ? [facility] ? Receive Date: ? 07/01/2017 ? Provider: EVAN MILLER MD Copy to: MARCIO CARRANZA MD ? Final Report SPECIMEN ADEQUACY ? Satisfactory for Evaluation - transformation zone component present - scant squamous epithelial component GENERAL CATEGORIZATION ? Negative for Intraepithelial Lesion or Malignancy ?? Specimen/Source: ??Pap Test, Cervix, ThinPrep Imaging System with manual evaluation Document reviewed and electronically signed by: ? ANAI Beverly(ASCP) ? Report ??Date: 07/08/2017 15:00 HPV with Pap Test ? Date Ordered: ? 07/08/2017 ? Status: ?? Signed Out ?Date Complete: ? 07/09/2017 ? By: ??System Interface ? Date Reported: ? 07/09/2017 ? Interpretation RESULT: Negative for HPV. No E6 or E7 mRNA is detected from HPV types 16,18,31,33,35, 39,45,51,52,56,58, 59,66, and 68 by screwmaker automatic mediated amplification. Comments Document reviewed and electronically signed by: ? System Interface ? Report date: 07/09/2017 By the signature above, the attending physician certifies that he/she has personally conducted a gross and/or microscopic examination of the described specimens and rendered or confirmed the above diagnosis. End of Report [facility] 06/27/2017 07/01/2017 Evan Miller MD PATHOLOGY ORDERABLES [facility] [address] [place] [address] documented in this encounter Visit Diagnoses Not on filedocumented in this encounter Care Teams Manufacturing Controller Relationship Specialty Start Date End Date Marcio Carranza MD PCP - General 07/26/15 documented as of this encounter
--- OUTSIDE RECORDS SUMMARY | 2024-04-08 02:34 | XMS_ITS | Encounter Summary ---
Author Organization [facility] Address [address] [place] [address] Care Team Providers Care Mixer Attendant Name Role Phone Marcio Carranza MD Primary Care Provider Unav ailable Encounter Details Date Type Department Care Team (Late st Contact Info) Description 06/13/2023 Lab Requisition [facility] Pathology & Laboratory Medicine - [address] [address] Outr Resulting Lab, Provider Social History Tobacco [...] Priority Date/Time Associated Diagnosis Comments IGA Routine 06/13/2023 14:35 EDT documented in this encounter Results * (ABNORMAL) IGA (06/13/2023 14:35 EDT) IgA 541(H) 85 - 499 mg/dL 06/16/2023 9:53 EDT [facility] Blood VENOUS BLOOD / Unknown 06/13/2023 14:35 EDT 06/13/2023 21:23 EDT Provider Outr Resulting Lab CHEMISTRY & BLOOD GAS ORDERABLES [facility] [address] [place] [address] documented in this encounter Visit Diagnoses Not on filedocumented in this encounter Care Teams Mixer Attendant Relationship Specialty Start Date End Date Marcio Carranza MD PCP - General 07/26/15 documented as of this encounter
--- OUTSIDE RECORDS SUMMARY | 2024-04-08 02:34 | XMS_ITS | Encounter Summary ---
Author Organization [facility] [place] [address] Care Team Providers Care Fire Regulator Name Role Phone Marcio Carranza MD Primary Care Provider [phone] Encounter Details Date Type Department Care Team (Late st Contact Info) Description 01/02/2011 9:00 AM EDT - 01/02/2011 9:45 AM EDT Surgery [place] [phone] Yaquelin Chan MD [facility] [place] [address] COLONOSCOPY FLEXIBLE, WITH BX (WRVU 3.56) Social [...] AM EDT Hospital Encounter Non-Invasive [place] [address] Arrived 04/29/2024 9:50 AM EDT [place] [address] Luis Alfredo Velazquez MD [facility] [place] [address] 04/29/2024 9:50 AM EDT Appointment MRI at [place] [phone] Luis Alfredo Velazquez MD [facility] [place] [address] 06/07/2024 2:30 PM EDT TH Visit (TeleHealth) Gastroenterology at [place] [phone] Dajuan Rachel MD [facility] [place] [address] 07/02/2024 2:00 PM EDT Appointment Non-Invasive [place] [phone] Luis Alfredo Velazquez MD [facility] [place] [address] 07/02/2024 4:40 PM EDT Office Visit Cardiology at [address] [phone] Luis Alfredo Velazquez MD [facility] [place] [address] documented as of this encounter Procedures Procedure [...] 10:14 AM EDT) Surgical Pathology Report [id number] ? Location: 4T The signing pathologist has [...] report in rendering the final pathologic diagnosis. [employer] [facility] 01/02/2011 10:1 4 AM EDT Yaquelin Chan MD PATHOLOGY/CYTOLOGY O RDERABLES [facility] * SURGICAL PATHOLOGY REPORT (01/02/2011 10:14 AM EDT) Surgical Pathology Report ? [facility] ? Provider: ?? YAQUELIN CHAN ? Pt. Name: ?? JENNIFER PEREZ ? Acc #: ?[id number] ?Pt. ? Col Date: ?? 01/02/2011 ? [...] Tissue Description: ?? Soft, brown tissues. ? [facility] ? Provider: ?? NATALIE, YAQUELIN S ? Pt. Name: ?? ANAJENNIFER ? Acc #: ?[id number] ?Pt. ? Col Date: ?? 01/02/2011 ? [...] Clinical History/Diagnosi s: ? UC surveillance TYSHAWN RICKETTS 01/02/2011 10:1 4 AM EDT Yaquelin Chan MD PATHOLOGY/CYTOLOGY O RDERABLES [facility] COLONOSCOPY (01/02/2011 9:07 AM EDT) COLONOSCOPY [facility] ___ Patient Name: Jennifer Perez ? Procedure Date: 01/02/2011 09:07:07 AM ? N: [id number] ? Date of : 1960 ? Age: 50 ? ___ Procedure: ? Colonoscopy Indications: ? High risk colon cancer surveillance: ? Ulcerative pancolitis Providers: ? Yaquelin Chan MD, Ramya Guido, ? RN, Nathaniel Oliva, Label Machine Operator Referring : ?Marcio Carranza MD, Dajuan Garcia ? MD Wilson [...] Action Action Date Dose Rate Site fentaNYL 50mcg/mL injection ONCE PRN, 1 dose, Starting on Fri01/02/11 at 0928, Until Fri01/02/11 at 0928, Pain, Intra-Operative (Intra-Procedure), Routine Given 01/02/2011 9:28 AM EDT 100 mcg Left Arm fentaNYL 50mcg/mL injection Intravenous, ONCE PRN, 1 dose, Starting on Fri01/02/11 at 0933, Until Fri01/02/11 at 0933, Pain, Intra-Operative (Intra-Procedure), Routine Given 01/02/2011 9:33 AM EDT 25 mcg Left Arm midazolam (VERSED) injection ONCE PRN, 1 dose, Starting on Fri01/02/11 at 0928, Until Fri01/02/11 at 09, Sleep, Intra-Operative (Intra-Procedure), Routine Given 01/02/2011 9:28 AM EDT 2 mg Left Arm midazolam (VERSED) injection Intravenous, ONCE PRN, 1 dose, Starting on Fri01/02/11 at 0933, Until Fri01/02/11 at 09, Sleep, Intra-Operative (Intra-Procedure), Routine Given 01/02/2011 9:33 AM EDT 1 mg Left Arm documented in this encounter Active and Recently Administered Medications Times are shown in EDT. PRN Medication Order 12/31/2010 01/01/2011 01/02/2011 fentaNYL 50mcg/mL injection (COMPLETED) ONCE PRN, 1 dose, Starting on Fri01/02/11 at 0928, Until Fri01/02/11 at 0928, Pain, Intra-Operative (Intra-Procedure), Routine 927 (Given - Provid er: Ramya Guido RN) fentaNYL 50mcg/mL injection (COMPLETED) Intravenous, ONCE PRN, 1 dose, Starting on Fri01/02/11 at 0933, Until Fri01/02/11 at 0933, Pain, Intra-Operative (Intra-Procedure), Routine 932 (Given - Provid er: Ramya Guido RN) midazolam (VERSED) injection (COMPLETED) ONCE PRN, 1 dose, Starting on Fri01/02/11 at 0928, Until Fri01/02/11 at 0928, Sleep, Intra-Operative (Intra-Procedure), Routine 927 (Given - Provid er: Ramya Guido RN) midazolam (VERSED) injection (COMPLETED) Intravenous, ONCE PRN, 1 dose, Starting on Fri01/02/11 at 0933, Until Fri01/02/11 at 0933, Sleep, Intra-Operative (Intra-Procedure), Routine 09 (Given - Provid er: Ramya Guido RN) documented in this encounter Care Teams Fire Regulator Relationship Specialty Start Date End Date Marcio Carranza MD [address] [place] [address] PCP - General 08/07/10 11/10/17 documented as of this encounter
--- OUTSIDE RECORDS SUMMARY | 2024-04-08 02:34 | XMS_ITS | Encounter Summary ---
Author Organization [facility] Address [address] [place] [address] Care Team Providers Care Plug Stitcher Name Role Phone Marcio Carranza MD Primary Care Provider Unav ailable Encounter Details Date Type Department Care Team (Late st Contact Info) Description 06/27/2023 Lab Requisition [facility] Pathology & Laboratory Medicine - [address] [address] Outr Resulting Lab, Provider Social History Tobacco [...] Diagnosis Comments TISSUE TRANSGLUTAMINASE ANTIBODY, IGA Routine 06/27/2023 14:40 EDT documented in this encounter Results * TISSUE TRANSGLUTAMINASE AB, IGA (06/27/2023 14:40 EDT) Tissue Transglutaminase Antibody IGA <1.2 <4.0 U/mL 07/01/2023 13:06 EDT [facility] Comment: A negative result may be due to IgA deficiency and does not rule out celiac disease. ? Negative: ??<4.0 U/mL ? Weak Positive: ??4.0 - 10.0 U/mL ? Positive: ??>10.0 U/mL Results were obtained with the [employer] Lite R h-tTG IgA CASE assay on the [employer] DSX. Blood VENOUS BLOOD / Unknown 06/27/2023 14:40 EDT 06/27/2023 21:30 EDT Provider Outr Resulting Lab IMMUNOLOGY A ND SEROLOGY ORDERABLES Performing Organization Address City/State[facility] Co de Phone Number [facility] [address] [place] [address] documented in this encounter Visit Diagnoses Not on filedocumented in this encounter Care Teams Plug Stitcher Relationship Specialty Start Date End Date Marcio Carranza MD PCP - General 07/26/15 documented as of this encounter
--- OUTSIDE RECORDS SUMMARY | 2024-04-08 02:34 | XMS_ITS | Encounter Summary ---
Author Organization [facility] Address [facility] [place] [address] Care Team Providers Care Welding Machine Operator Submerged Arc Name Role Phone Marcio Carranza MD Primary Care Provider [phone] Encounter Details Date Type Department Care Team (Late st Contact Info) Description 01/14/2011 Orders [place] [phone] Marc Chan MD [facility] [place] [address] Social History Tobacco Use Types Packs/Day Years [...] AM EDT Hospital Encounter Non-[place] [phone] Arrived 04/29/2024 9:50 AM EDT Appointment MRI at [place] [phone] Luis Alfredo Velazquez MD [facility] [place] [address] 04/29/2024 9:50 AM EDT Appointment MRI at [place] [address] Luis Alfredo Velazquez MD [facility] [place] [address] 06/07/2024 2:30 PM EDT TH Visit (TeleHealth) Gastroenterology at [address] Dajuan Rachel MD [facility] [place] [address] 07/02/2024 2:00 PM EDT Appointment Non-Invasive Cardiology Lab [place] [address] Luis Alfredo Velazquez MD [facility] [place] [address] 07/02/2024 4:40 PM EDT Office Visit Cardiology at [place] [address] Luis Alfredo Velazquez MD [facility] [place] [address] documented as of this encounter Visit Diagnoses Not on filedocumented in this encounter Care Teams Welding Machine Operator Submerged Arc Relationship Specialty Start Date End Date Marcio Carranza MD [address] [place] [address] PCP - General 08/07/10 11/10/17 documented as of this encounter
[2024-04-08 07:20] LABS: Abs Immature Grans 0.04 10^3/uL (0.0-0.06); Absolute Basophil Count 0.03 10^3/uL (0.0-0.2); Absolute Eosinophil Count 0.14 10^3/uL (0.0-0.7); Absolute Monocyte Count 0.72 10^3/uL (0.1-0.8); Basophils % 0.4 %; HCT 38.4 % (36.0-46.0); HGB 12.5 g/dL (11.2-15.7); Immature Grans % 0.6 %; MCH 30.6 pg (27.0-33.0); MCHC 32.6 % (32.0-36.0); MCV 94 fL (80-95); MPV 9.8 fL (8.0-11.0); Monocytes % 10.5 %; Neutrophils % 64.5 %; Platelet Count 234 10^3/uL (130-400); RBC 4.08 10^6/uL (3.93-5.22); RDW 14.3 % (11.7-14.6); RDW-SD 49.2 fL; WBC 6.83 10^3/uL (4.4-10.8)
[2024-04-08 07:36] LABS: ALT 28 U/L (14-59); AST 21 U/L (15-37); Albumin 3.7 g/dL (3.4-5.0); Alkaline Phosphatase 148 U/L (46-116); Bilirubin, Direct 0.1 mg/dL (0.0-0.2); Bilirubin, Total 0.45 mg/dL (0.2-1.0); Calculated LDL 73 mg/dL (<100); Cholesterol 162 mg/dL (<200); HDL Cholesterol 59 mg/dL (40-60); Total Protein 7.7 g/dL (6.4-8.2); Triglyceride 153 mg/dL (<150)
[2024-04-08 07:38] LABS: C-Reactive Protein < 0.50 mg/dL (<or=0.5)
== END 2024-04-08 02:21 | disposition home or self-care (01) ==
PROVIDERS: PCP Family Medicine; Visit Provider Internal Medicine Gastroenterology
DX: E78.5 Hyperlipidemia, unspecified (principal); K51.019 Ulcerative (chronic) pancolitis with unspecified complications
CPT/HCPCS: 36415; 80061; 80076; 85025; 86140

== ENCOUNTER → 2024-04-16 00:16 | Outpatient (CLI) | payer OTHER, SELFPAY ==
--- OUTSIDE RECORDS SUMMARY | 2024-04-16 00:20 | XMS_ITS | Data Portability ---
Author Organization [place] - [facility], [facility] [place] [address] Assessment No assessment recorded. Plan of Treatment Reminders Order Date Submit Date Provider Last Modified By Organization Details Last Modified Time Details Appointments None recorded. Lab urinalysis, dipstick 2022 023 [email or web address] [facility], [address] [place] [address], [address], [place], [address], 3 10:58:35 culture, urine + sensitivity 2022 023 [facility] (Registration ), [address] [place] [address] [place] [facility] [place], [address], 3 14:48:56 urinalysis, microscopic 2022 023 [facility] (Registration ), [address] [place] [address] [place], [address], 3 15:34:28 Referral None recorded. Procedures None recorded. Surgeries None recorded. Imaging XR, foot, 3 or more view [address] [facility] (Radiology), [address] [place] [address] [place], [address], 4 08:43:41 XR, ankle, 3 or more view [address] [facility] (Radiology), [address] [place] [address] [place], [address], 4 09:39:49 Medication Orders sulfamethox azole 800 mg-trimetho prim 160 mg tablet 2022 023 [email or web address] [facility], [address] [place], [address], 4 14:10:03 Bactrim DS 800 mg-160 mg tablet 2022 023 [email or web address] r1 [facility], [address] [place], [address], 14:10:03 Patient TargetsNo targets recorded. Patient Instructions Encounter Date Encounter Id Patient Instructions Last Modified By Organization Details Last Modified Time 09/11/2023 [id number] 1. Your symptoms and your urine dip [...] that. [email or web address] Not available 09/11/2023 10:53:19 02/03/2024 [id number] 3 week old injury, barely able to [...] URINA LYSIS color Yellow yellow Not Available [facility] (Registration ) [address] [place] [address] [place], [address], 09/11/2023 18:01:06 09/11/20 23 09/11/2023 URINA LYSIS clarity Turbid clear Not Available [facility] (Registration ) [address] [place] [address] [place], [address], 09/11/2023 18:01:06 09/11/20 23 09/11/2023 URINA LYSIS specific gravity 1.025 1.005- 1.[address] [facility] (Registration ) [address] [place] [address] [place], [address], 09/11/2023 18:01:06 09/11/20 23 09/11/2023 URINA LYSIS pH 5.5 5-[address] [facility] (Registration ) [address] [place] [address] [place], [address], 09/11/2023 18:01:06 09/11/20 23 09/11/2023 URINA LYSIS leukocyte esterase Large negati ve abnormal Not Available [facility] (Registration ) [address] [place] [address] [place], [address], 09/11/2023 18:01:06 09/11/20 23 09/11/2023 URINA LYSIS nitrite Positi ve negati ve abnormal Not Available [facility] (Registration ) [address] [place] [address] [place], [address], 09/11/2023 18:01:06 09/11/20 23 09/11/2023 URINA LYSIS protein 100 mg/dL negati ve abnormal Not Available [facility] (Registration ) [address] [place] [address] [place], [address], 09/11/2023 18:01:06 09/11/20 23 09/11/2023 URINA LYSIS glucose Negati ve mg/dL negati ve Not Available [facility] (Registration ) [address] [place] [address] [place], [address], 09/11/2023 18:01:06 09/11/20 23 09/11/2023 URINA LYSIS ketones Negati ve mg/dL negati ve Not Available [facility] (Registration ) [address] [place] [address] [place], [address], 09/11/2023 18:01:06 09/11/20 23 09/11/2023 URINA LYSIS urobilinogen 0.2 mg/dL up to 0.[address] [facility] (Registration ) [address] [place] [address] [place], [address], 09/11/2023 18:01:06 09/11/20 23 09/11/2023 URINA LYSIS bilirubin Negati ve negati ve Not Available [facility] (Registration ) [address] [place] [address] [place], [address], 09/11/2023 18:01:06 09/11/20 23 09/11/2023 URINA LYSIS blood Modera te negati ve abnormal Not Available [facility] (Registration ) [address] [place] [address] [place], [address], 09/11/2023 18:01:06 09/11/20 23 09/11/2023 URINA LYSIS color Yellow yellow Not Available [facility] (Registration ) [address] [place] [address] [place], [address], 09/11/2023 18:06:07 09/11/20 23 09/11/2023 URINA LYSIS clarity Turbid clear Not Available [facility] (Registration ) [address] [place] [address] [place], [address], 09/11/2023 18:06:07 09/11/20 23 09/11/2023 URINA LYSIS specific gravity 1.025 1.005- 1.[address] [facility] (Registration ) [address] [place] [address] [place], [address], 09/11/2023 18:06:07 09/11/20 23 09/11/2023 URINA LYSIS pH 5.5 5-[address] [facility] (Registration ) [address] [place] [address] [place], [address], 09/11/2023 18:06:07 09/11/20 23 09/11/2023 URINA LYSIS leukocyte esterase Large negati ve abnormal Not Available [facility] (Registration ) [address] [place] [address] [place], [address], 09/11/2023 18:06:07 09/11/20 23 09/11/2023 URINA LYSIS nitrite Positi ve negati ve abnormal Not Available [facility] (Registration ) [address] [place] [address] [place], [address], 09/11/2023 18:06:07 09/11/20 23 09/11/2023 URINA LYSIS protein 100 mg/dL negati ve abnormal Not Available [facility] (Registration ) [address] [place] [address] [place], [address], 09/11/2023 18:06:07 09/11/20 23 09/11/2023 URINA LYSIS glucose Negati ve mg/dL negati ve Not Available [facility] (Registration ) [address] [place] [address] [place], [address], 09/11/2023 18:06:07 09/11/20 23 09/11/2023 URINA LYSIS ketones Negati ve mg/dL negati ve Not Available [facility] (Registration ) [address] [place] [address] [place], [address], 09/11/2023 18:06:07 09/11/20 23 09/11/2023 URINA LYSIS urobilinogen 0.2 mg/dL up to 0.[address] [facility] (Registration ) [address] [place] [address] [place], [address], 09/11/2023 18:06:07 09/11/20 23 09/11/2023 URINA LYSIS bilirubin Negati ve negati ve Not Available [facility] (Registration ) [address] [place] [address] [place], [address], 09/11/2023 18:06:07 09/11/20 23 09/11/2023 URINA LYSIS blood Modera te negati ve abnormal Not Available [facility] (Registration ) [address] [place] [address] [place], [address], 09/11/2023 18:06:07 09/11/20 23 09/11/2023 MICRO SCOPI C FINDI NGS WBC >50 hpf 0-[address] [facility] (Registration ) [address] [place] [address] [place], [address], 09/11/2023 18:06:08 09/11/20 23 09/11/2023 MICRO SCOPI C FINDI NGS C S indicated? C S Done As Ordere d Not Available [facility] (Registration ) [address] [place] [address] [place], [address], 09/11/2023 18:06:08 09/11/20 23 09/12/2023 URINE CULTU RE urine culture Not Available [address] [place], [address] 09/12/2023 11:17:32 09/11/20 23 09/12/2023 URINE CULTU RE urine culture colon ies/m L Not Available [address] [place], [address] 09/12/2023 11:17:32 09/11/20 23 09/13/2023 URINE CULTU RE urine culture Not Available [facility] (Registration ) [address] [place] [address] [place], [address], 09/13/2023 07:56:15 09/11/20 23 09/13/2023 URINE CULTU RE urine culture colon ies/m L Not Available [facility] (Registration ) [address] [place] [address] [place], [address], 09/13/2023 07:56:15 09/11/20 23 09/11/2023 urina lysis , dipst ick Leukocytes Large Not Available [facility] [address], [place], [address], 09/11/2023 10:43:31 09/11/20 23 09/11/2023 urina lysis , dipst ick Nitrite positi ve Not Available [address], [place], [address], 09/11/2023 10:43:31 09/11/20 23 09/11/2023 urina lysis , dipst ick Urobilinogen .2 Not Available [address] [place] [address], [place], [address], 09/11/2023 10:43:31 09/11/20 23 09/11/2023 urina lysis , dipst ick Protein 100 Not Available [address] [place] [address], [place], [address], 09/11/2023 10:43:31 09/11/20 23 09/11/2023 urina lysis , dipst ick pH 5.0 Not Available [address] [place] [address], [place], [address], 09/11/2023 10:43:31 09/11/20 23 09/11/2023 urina lysis , dipst ick Blood Large Not Available [address] [place] [address], [place], [address], 09/11/2023 10:43:31 09/11/20 23 09/11/2023 urina lysis , dipst ick Specific [place] 1.020 Not Available [place] [address], [place], [address], 09/11/2023 10:43:31 09/11/20 23 09/11/2023 urina lysis , dipst ick Ketone Negati ve Not Available [address], [place], [address], 09/11/2023 10:43:31 09/11/20 23 09/11/2023 urina lysis , dipst ick Bilirubin Negati ve Not Available [address], [place], [address], 09/11/2023 10:43:31 09/11/20 23 09/11/2023 urina lysis , dipst ick Glucose Negati ve Not Available [address], [place], [address], 09/11/2023 10:43:31 09/11/20 23 09/11/2023 urina lysis , dipst ick Appearance Cloudy Not Available [address], [place], [address], 09/11/2023 10:43:31 09/11/20 23 09/11/2023 urina lysis , dipst ick Color Dark Yellow Not Available [address], [place], [address], 09/11/2023 10:43:31 09/12/20 23 09/12/2023 MAMMO , diagn ostic , bilat eral No observ ation record ed. Not Available 09/15/2023 08:33:00 09/12/20 23 09/12/2023 colon oscop y outco mes repor ting* No observ ation record ed. BARCODE Not Available 09/12/2023 18:13:48 02/04/20 24 02/03/2024 XR, foot, 3 or more view No observ ation record ed. [email or web address] [facility] (Radiology) [address] [place] [address] [place], [address], 02/17/2024 08:43:41 02/04/2002/03/2024 XR, ankle , 3 or more view No observ ation record ed. [facility] (Radiology) [address] [place] [address] [place], [address], 02/04/2024 12:36:17 Result Notes None recorded. Problems Name Status Onset Date Resolution Date Notes Provider Name and Address Organization Details Recorded Time Acute urinary tract infection Active [address], [place], [address], [facility] 09/11/2023 10:58:31 Problem Notes None recorded. Procedures Surgical History None recorded. Imaging Results Imaging Date Name Status LastModified by Organiz ation Details LastModified Time 09/12/2023 MAMMO, diagnostic, bilateral completed Information not available 09/15/2023 08:33:00 09/12/2023 colonoscopy outcomes reporting* completed BARCODE Information not available 09/12/2023 18:13:48 02/03/2024 XR, foot, 3 or more view completed [email or web address] [place] [address] (Radiology) [address] [place] [address] [place], [address], 02/17/2024 08:43:41 02/03/2024 XR, ankle, 3 or more view completed [email or web address] [place] [address] (Radiology) [address] [place] [address] [place], [address], 02/04/2024 12:36:17 Procedure Notes None recorded. Medical Equipment None Reported. Allergies Allergen ID Allergen Name Allergen Category Reaction Reaction Severity Criticality Documentation Date Start Date Code Code System Note Provider Name and Address Organization Details Recorded Time 45476 ibuprofen medicatio n chest pain Not available Not available 09/11/2023 5640 RxNorm AUNG David, [facility] 3 10:31:10 40427 cephalexi n medicatio n vomiting Not available Not available 09/11/2023 2231 RxNorm AUNG David, [facility] 3 10:31:32 33821 Augmentin medicatio n vomiting Not available Not available 09/11/2023 15190 2 RxNorm AUNG David, [facility] 3 10:31:46 73789 doxycycli ne Not available vomiting Not available Not available 09/11/2023 3640 [facility] 3 10:32:46 24124 Celebrex medicatio n rash Not available Not available 09/11/2023 56151 7 RxNorm AUNG David, [facility] 3 10:33:10 67111 etodolac medicatio n itching mild low 02/03/2024 48218 RxNorm Tongu e itchi ng Mai Bailey [facility] 4 14:09:51 Medications Name Sig Start [...] Updated DateTime 3 165.1 cm 28.1 kg/m2 23817.1 1 g 20 /min 97.8 [degF] 78 /min 99 % 99 % 147 mm[Hg] 79 mm[Hg] Ivelisse Austin MA [facility] 3 10:28:37 Date Recorded Body height Body mass index (BMI) Body weight Body temperature Oxygen saturation Oxygen saturation in Arterial blood by Pulse oximetry Heart rate Respiratory rate Systolic blood pressure Diastolic blood pressure Provider Name and Address Organization Details Last Updated DateTime 4 165.1 cm 29.5 kg/m2 72711.8 5 g 97.8 [degF] 97 % 97 % 82 /min 16 /min 135 mm[Hg] 76 mm[Hg] Mai Bailey [facility] 4 14:07:30 Social History Question Answer Notes LastModified by Organizat ion Details LastModified Time Tobacco Smoking Status Never Smoker Ivelisse Austin MA null, [facility] 09/11/2023 10:39:24 What Was The Date Of [...] Recorded Time Tdap 03/30/2020 completed FRANCESCA Yancey, [facility] 09/11/2023 15:09:38 influenza, unspecified formulation 10/10/2022 completed FRANCESCA Yancey, [facility] 09/11/2023 15:09:46 COVID-19, mRNA, LNP-S, bivalent, PF, 10 mcg/0.2 mL 12/16/2020 completed FRANCESCA Yancey, [facility] 09/11/2023 15:09:59 COVID-19, mRNA, LNP-S, bivalent, PF, 10 mcg/0.2 mL 01/13/2021 completed FRANCESCA Yancey, [facility] 09/11/2023 15:10:02 COVID-19, mRNA, LNP-S, bivalent, PF, 10 mcg/0.2 mL 08/13/2021 completed FRANCESCA Yancey, [facility] 09/11/2023 15:10:05 COVID-19, mRNA, LNP-S, bivalent, PF, 10 mcg/0.2 mL 02/01/2022 completed FRANCESCA Yancey, [facility] 09/11/2023 15:10:09 COVID-19, mRNA, LNP-S, PF, 30 mcg/0.3 mL dose, jose angel-sucrose 10/18/2022 completed FRANCESCA Yancey, [facility] 09/11/2023 15:10:20 Pneumococcal conjugate PCV 13 02/29/2016 completed Tania Loving RN null, [facility] 09/11/2023 15:13:46 pneumococcal, unspecified formulation 03/15/2014 completed Tania Loving RN null, [facility] 09/11/2023 15:14:06 zoster, unspecified formulation 10/13/2019 completed Tania Loving RN null, [facility] 09/11/2023 15:14:23 zoster, unspecified formulation 02/19/2020 completed Tania Loving RN null, [facility] 09/11/2023 15:14:27 influenza, unspecified formulation 07/16/2023 completed Tania Loving RN null, [facility] 09/11/2023 15:14:41 Past Encounters Encounter ID Performer Location Encounter Start Date Encounter Closed Date Diagnosis/Indication Diagnosis SNOMED-CT Code [id number] TOM MARKS PA-C [address] [place] [address] 09/11/2023 10:04:02 09/11/2023 10:56:49 Acute urinary tract infection 258884404 [id number] Alexis Argueta MD [address] [place] [address] 02/03/2024 13:49:12 02/03/2024 15:01:40 Sprain of right ankle 827679856819924 05 Health Concerns Section Related Observation LastModified by Organization Detai ls LastModified Time None Recorded Concern Status LastModified by Organization Details LastModified Time None Recorded Advance Directives Directive None Recorded Payers Encounter Date Sequence Insurance Name Policy Number Policy Adorno Covered Member ID Adorno Member ID Guarantor Name 09/11/2023 2 [facility] Lucien Funes [id number] Kim Funes 02/03/2024 2 [facility] Lucien Funes [id number] Kim Funes 02/03/2024 1 [employer] [id number] Kim Funes [id number] Kim Funes Notes Date Note Type Note [...] day. TOM MARKS PA-C [address], [place], [address], [facility]. 09/11/2023 11:13:31 02/03/2024 text/html HPI Notes: Pt twisted ankle 3 weeks ago, a couple of times reinjured it since then. Painful to WB, has never used crutches. Alexis Argueta MD [address], [place], [address], [facility]. 02/03/2024 16:05:12 OBGyn Episode No OBEpisode recorded.
--- OUTSIDE RECORDS SUMMARY | 2024-04-16 00:21 | XMS_ITS | Encounter Summary ---
Author Organization [facility] [place] [address] Care Team Providers Care Corporate Strategist Name Role Phone Marcio Devlin DO Primary Care Provider [phone] Encounter Details Date Type Department Care Team (Latest Contact Info) Description 11/21/2023 Travel Social History Tobacco Use Types Packs/Day Years Used Date Smoking Tobacco: Never Smokeless Tobacco: Never Alcohol Use Standard Drinks/Week Comments Yes 0 (1 standard drink = 0.6 oz pure alcohol) once every couple of months or less [facility] Utilities Answer Date Recorded In the [...] slept in a fdc (including now)? No 10/21/2023 IPV Inpatient Questions [...] AM EDT Hospital Encounter [place] [address] Arrived 04/29/2024 9:50 AM [place]T [place] [address] Luis Alfredo Velazquez MD [facility] [place] [address] 04/29/2024 9:50 AM ED[place] [address] Luis Alfredo Velazquez MD [facility] [place] [address] 06/07/2024 2:30 PM EDT TH Visit (TeleHealth) Gastroenterology at [place] [address] Dajuan Rachel MD [facility] [place] [address] 07/02/2024 2:00 PM EDT Appointment Non-Invasive Cardiology Lab [address] Luis Alfredo Velazquez MD [facility] [place] [address] 07/02/2024 4:00 PM EDT Office [place] [address] Mars Green PA [facility] [place] [address] 07/02/2024 4:40 PM EDT Office Visit Cardiology at [place] [phone] Luis Alfredo Velazquez MD [facility] [place] [address] documented as of this encounter Visit Diagnoses Not on filedocumented in this encounter Care Teams Corporate Strategist Relationship Specialty Start Date End Date Marcio Devlin DO [address] [place] [address] PCP - General Family Medicine 11/11/17 documented as of this encounter
--- OUTSIDE RECORDS SUMMARY | 2024-04-16 00:21 | XMS_ITS | Encounter Summary ---
Author Organization [facility] [place] [address] Care Team Providers Care Promotions Executive Producer Name Role Phone Marcio Devlin DO Primary Care Provider [phone] Encounter Details Date Type Department Care Team (Late st Contact Info) Description 11/19/2023 Notes [place] [address] Rosemarie Morrow, SKIP [facility] [address] Social History Tobacco Use Types Packs/Day Years Used Date Smoking Tobacco: Never Smokeless Tobacco: Never Alcohol Use Standard Drinks/Week Comments Yes 0 (1 standard drink = 0.6 oz pure alcohol) once every couple of months or less [facility] Utilities Answer Date Recorded In the past 12 months has [employer], gas, oil, or water company threatened [...] health care facility (including now)? No 10/21/2023 DH IPV Inpatient [...] of this encounter Progress Notes * Rosemarie Morrow APRN - 11/19/2023 12:00 AM EST Ms. Funes [...] AM EDT Hospital Encounter Non-Invasive Cardiology Lab [place] [phone] Arrived 04/29/2024 9:50 AM EDT Appointment MRI at [address] Luis Alfredo Velazquez MD [facility] [place] [address] 04/29/2024 9:50 AM EDT Appointment MRI at [place] [address] Luis Alfredo Velazquez MD [facility] [place] [address] 06/07/2024 2:30 PM EDT TH Visit (TeleHealth) [place] [address] Dajuan Rachel MD [facility] [place] [address] 07/02/2024 2:00 PM EDT Appointment Non-Invasive [place] [address] Luis Alfredo Velazquez MD [facility] [place] [address] 07/02/2024 4:00 PM EDT Office Visit Cardiology at [place] [phone] Mars Green, [place] [facility] [place] [address] 07/02/2024 4:40 PM EDT Office Visit Cardiology at [address] [address] Luis Alfredo Velazquez MD [facility] [place] [address] documented as of this encounter Visit Diagnoses Not on filedocumented in this encounter Care Teams Promotions Executive Producer Relationship Specialty Start Date End Date Marcio Devlin DO [facility] [place] [place] [address] PCP - General Family Medicine 11/11/17 documented as of this encounter
--- OUTSIDE RECORDS SUMMARY | 2024-04-16 00:21 | XMS_ITS | Encounter Summary ---
Author Organization [facility] [place] [address] Care Team Providers Care Mold Yard Crane Operator Name Role Phone Marcio Devlin DO Primary Care Provider [phone] Encounter Details Date Type Department Care Team (Latest Contact Info) Description 01/06/2024 1:00 PM EDT Office [place] [phone] Gabe Fong MD [facility] [address] High risk medication use; Medication monitoring encounter; [...] once every couple of months or less [facility] Utilities Answer Date Recorded In [...] slept in a intermediate (including now)? No 10/21/2023 DH IPV Inpatient [...] AM EDT Hospital Encounter [place] [address] Arrived 04/29/2024 9:50 AM [place] [address] Luis Alfredo Velazquez MD [facility] [address] 04/29/2024 9:50 AM [place] [address] Luis Alfredo Velazquez MD [facility] [address] 06/07/2024 2:30 PM EDT TH Visit (TeleHealth) Gastroenterology at [place] [address] Dajuan Rachel MD [facility] GASTROENTEROLOGY [place], [place] [phone] 07/02/2024 2:00 PM EDT Appointment Non-Invasive [place] [address] Luis Alfredo Velazquez MD [facility] [address] 07/02/2024 4:00 PM EDT Office [place] [address] Mars Green PA [facility] [address] 07/02/2024 4:40 PM EDT Office Visit Cardiology at [place] [phone] Luis Alfredo Velazquez MD [facility] [address] Scheduled Orders Name Type Priority Associated Diagnoses [...] hands documented in this encounter Care Teams Mold Yard Crane Operator Relationship Specialty Start Date End Date Marcio Devlin DO [address] [place] [address] PCP - General Family Medicine 11/11/17 documented as of this encounter
--- OUTSIDE RECORDS SUMMARY | 2024-04-16 00:21 | XMS_ITS | Encounter Summary ---
Author Organization [facility] [place] [address] Care Team Providers Care Linoleum Mechanic Name Role Phone Marcio Devlin DO Primary Care Provider [phone] Reason for Visit * Reason Onset Date Comments Other 10/22/2023 Implanted Cardia c Device Education Encounter Details Date Type Department Care Team (Late st Contact Info) Description 10/22/2023 Notes Only Cardiology at [address] [address] Rafaela Dillon Other (Implanted Cardiac Device Education) Social History Tobacco Use Types Packs/Day Years Used Date Smoking Tobacco: Never Smokeless Tobacco: Never Alcohol Use Standard Drinks/Week Comments Yes 0 (1 standard drink = 0.6 oz pure alcohol) once every couple of months or less [facility] Utilities Answer Date Recorded In the past 12 months has [employer], gas, oil, or water [employer] threatened to shut off services in your [...] slept in a longterm (including now)? No 10/21/2023 DH IPV Inpatient [...] to call the Cardiac Device Clinic at [phone] with any questions. Plan: Post op check: 11/04/23 91 day check: will be scheduled by [facility] Remote monitor: Latitude home monitor provided to patient today. Monitor set up demonstrated. Patient instructed to connect monitor and send manual transmission when they arrive home. Rafaela Dillon 10/22/23 documented in this encounter Plan of Treatment Upcoming Encounters Date Type Department Care Team (Late st Contact Info) Description 04/19/2024 10:00 AM EDT Hospital Encounter Non-[place] [address] Arrived 04/29/2024 9:50 AM EDT Appointment MRI at [address] Luis Alfredo Velazquez MD [facility] [place] [address] 04/29/2024 9:50 AM EDT [place] [address] Luis Alfredo Velazquez MD [facility] [place] [address] 06/07/2024 2:30 PM EDT TH Visit (TeleHealth) Gastroenterology at [place] [phone] Dajuan Rachel MD [facility] [place] [address] 07/02/2024 2:00 PM EDT Appointment Non-[place] [address] Luis Alfredo Velazquez MD [facility] [place] [address] 07/02/2024 4:00 PM EDT Office Visit Cardiology at [address] [address] Mars Green PA [facility] [place] [address] 07/02/2024 4:40 PM EDT Office Visit Cardiology at [address] [address] Luis Alfredo Velazquez MD [facility] [place] [address] documented as of this encounter Visit Diagnoses Not on filedocumented in this encounter Care Teams Linoleum Mechanic Relationship Specialty Start Date End Date Marcio Devlin DO [address] [place], [place] [address] [place] [address] PCP - General Family Medicine 11/11/17 documented as of this encounter
--- OUTSIDE RECORDS SUMMARY | 2024-04-16 00:21 | XMS_ITS | Encounter Summary ---
Author Organization [facility] [place] [address] Care Team Providers Care Sales Agent Marine Insurance Name Role Phone Marcio Devlin DO Primary Care Provider [phone] Reason for Visit * Reason Comments Medication Refill Encounter Details Date Type Department Care Team (Late st Contact Info) Description 10/27/2023 Ref[place] [address] Gabe Fong MD [facility] [place] [address] Social History Tobacco Use Types Packs/Day Years Used Date Smoking Tobacco: Never Smokeless Tobacco: Never Alcohol Use Standard Drinks/Week Comments Yes 0 (1 standard drink = 0.6 oz pure alcohol) once every couple of months or less [facility] Utilities Answer Date Recorded In the past 12 months has [employer] electric, gas, oil, or water company threatened [...] AM EDT Hospital Encounter Non-[place] [address] Arrived 04/29/2024 9:50 AM ED[place] [address] Luis Alfredo Velazquez MD [facility] [place] [address] 04/29/2024 9:50 AM EDT Appointment MRI at [place] [address] Luis Alfredo Velazquez MD [facility] [place] [address] 06/07/2024 2:30 PM EDT TH Visit (TeleHealth) Gastroenterology at [place] [address] Dajuan Rachel MD [facility] [place] [address] 07/02/2024 2:00 PM EDT Appointment Non-Invasive Cardiology Lab [place] [address] Luis Alfredo Velazquez MD [facility] [place] [address] 07/02/2024 4:00 PM EDT Office Visit Cardiology at [place] [address] Mars Green, YURIY [facility] [place] [address] 07/02/2024 4:40 PM EDT Office Visit Cardiology at [place] [address] Luis Alfredo Velazquez MD [facility] [place] [address] documented as of this encounter Visit Diagnoses Not on filedocumented in this encounter Care Teams Sales Agent Marine Insurance Relationship Specialty Start Date End Date Marcio Devlin DO [address] [place] [address] PCP - General Family Medicine 11/11/17 documented as of this encounter
--- OUTSIDE RECORDS SUMMARY | 2024-04-16 00:21 | XMS_ITS | Encounter Summary ---
Author Organization [facility] [place] [address] Care Team Providers Care Mold Repair Technician Name Role Phone Marcio Devlin DO Primary Care Provider [phone] Encounter Details Date Type Department Care Team (Latest Contact Info) Description 11/11/2023 11:00 AM EST TH Visit (TeleHealth) [place] [address] Rosemarie Morrow, OCCUPATIONAL THERAPIST ASSISTANT [facility] [place] [address] Ulcerative pancolitis with complication Social History Tobacco Use Types Packs/Day Years Used Date Smoking Tobacco: Never Smokeless Tobacco: Never Alcohol Use Standard Drinks/Week Comments Yes 0 (1 standard drink = 0.6 oz pure alcohol) once every couple of months or less [facility] Utilities Answer Date Recorded In the [...] in a correction (including now)? No 10/21/2023 DH IPV Inpatient [...] this encounter Progress Notes * Rosemarie Morrow, OCCUPATIONAL THERAPIST ASSISTANT - 11/11/2023 11:00 AM EST [facility] Gastroenterology Telehealth Visit Primary care provider: Marcio [...] Colonoscopy 09/19/08 (Dr. Shady Luz at [facility]) for surveillance for dysplasia. Areas of skip [...] 2020 - severe involvement of L colon, ckax-kk-[id number] involvement of transverse and R colon. Worse compared to last exam. SSA at hepatic flexure Adalimumab level (cote) was 12.7 Switched to Stelara ( 03/21/21, first infusion dose) d/t Lost of response to Humira. Stopped Uceris and sulfasalazine in January 2021. [place] 09/2022 - tubular featureless L colon with [...] (Bezet) 10/20/2023 418 ms Final Calculated P [place] 10/20/2023 -12 degrees Final Calculated R [place] 10/20/2023 2 degrees Final Calculated T [place] 10/20/2023 32 degrees Final INTERPRETATION 10/20/2023 Final Value:Sinus rhythm with complete heart block and Junctional bradycardia Abnormal ECG No previous ECGs available Confirmed by MD ILA, JASE ([id number]) on 10/20/2023 10:15:01 AM Admission on 09/18/2023, Discharged on 09/18/2023 Component Date Value Ref Range Status COLONOSCOPY 09/18/2023 Final Value:[facility] Endoscopy Procedure Date: 09/18/2023 3:57 PM Patient Name: Kim Funes Date of : 1960 Age: 63 Order #: [id number] Instrument Name: [id number] Procedure: Colonoscopy Indications: Disease activity assessment of [...] bowel preparation was evaluated using the BBPS (Institute Bowel Preparation Scale) with scores of: Right [...] Rinvoq. - Please have labs checked at [facility]. - Await pathology results. Attending Participation: I personally performed the entire procedure. L. Jose Rachel MD 09/18/2023 5:05:33 PM Number of Addenda: 0 Note Initiated On: 09/18/2023 3:57 PM Surgical Pathology Report 09/18/2023 Final Value:[id number] Location: 4T; [facility]; A The signing pathologist has (i) examined [...] Verified: 09/26/2023 15:23 Pathologist Performed at: -[facility] Dept. of Pathology, [facility] [place] [address] Manager Restaurant: Dg Brown MD, FCAP, CLIA Certificate: [id number] SPECIMEN(S) SUBMITTED A - nondirected right colon [...] Check LFTs, Mg and lipids panel ( [facility]) - Continue lab surveillance while on Rinvoq [...] Disease Center Section of Gastroenterology [place] [address] documented in this encounter Plan of Treatment Upcoming Encounters Date Type Department Care Team (Late st Contact Info) Description 04/19/2024 10:00 AM EDT Hospital Encounter Non-[place] [address] Arrived 04/29/2024 9:50 AM EDT [place] [address] Luis Alfredo Velazquez MD [facility] [place] [place] [address] 04/29/2024 9:50 AM EDT Appointment MRI at [place] [address] Luis Alfredo Velazquez MD [facility] [place] [address] 06/07/2024 2:30 PM EDT TH Visit (TeleHealth) Gastroenterology at [address] Dajuan Rachel MD [facility] [place] [address] 07/02/2024 2:00 PM EDT Appointment Non-Invasive Cardiology Lab [address] Luis Alfredo Velazquez MD [facility] [place] [address] 07/02/2024 4:00 PM EDT Office Visit Cardiology at [address]1000 Mars Green PA [facility] [address] 07/02/2024 4:40 PM EDT Office Visit Cardiology at [place] [phone] Luis Alfredo Velazquez MD [facility] [place] [address] Scheduled Orders Name Type Priority Associated Diagnoses Orde r Schedule Magnesium Lab Routine Ulcerative pancolitis with complication Expected: 11/11/2023, Expires: 05/12/2024 Lipid Panel (Reflex Direct LDL) Lab Routine Ulcerative pancolitis with complication Expected: 11/11/2023, Expires: 05/12/2024 documented as of this encounter Visit Diagnoses Diagnosis Ulcerative pancolitis with complication documented in this encounter Care Teams Mold Repair Technician Relationship Specialty Start Date End Date Marcio Devlin [place] [address] PCP - General Family Medicine 11/11/17 documented as of this encounter
--- OUTSIDE RECORDS SUMMARY | 2024-04-16 00:21 | XMS_ITS | Encounter Summary ---
Author Organization [facility] [place] [address] Care Team Providers Care Legal Nurse Consultant Name Role Phone Marcio Devlin DO Primary Care Provider Encounter Details Date Type Department Care Team (Latest Contact Info) Description 11/26/2023 Travel Social History Tobacco Use Types Packs/Day Years Used Date Smoking Tobacco: Never Smokeless Tobacco: Never Alcohol Use Standard Drinks/Week Comments Yes 0 (1 standard drink = 0.6 oz pure alcohol) once every couple of months or less [facility] Utilities Answer Date Recorded In the [...] AM EDT Hospital Encounter Non-[place] [address] Arrived 04/29/2024 9:50 AM [place] [address] Luis Alfredo Velazquez MD [facility] [place] [address] 04/29/2024 9:50 AM [place] [address] Luis Alfredo Velazquez MD [facility] [place] [address] 06/07/2024 2:30 PM EDT TH Visit (TeleHealth) Gastroenterology at [place] [address] Dajuan Rachel MD [facility] [place] [address] 07/02/2024 2:00 PM EDT Appointment Non-Invasive Cardiology Lab [address]1000 Luis Alfredo Velazquez MD [facility] [address] 07/02/2024 4:00 PM EDT Office [place] [address] Mars Green PA [facility] [address] 07/02/2024 4:40 PM EDT Office Visit Cardiology at [place] [phone] Luis Alfredo Velazquez MD [facility] [place] [address] documented as of this encounter Visit Diagnoses Not on filedocumented in this encounter Care Teams Legal Nurse Consultant Relationship Specialty Start Date End Date Marcio Devlin DO [address] [place] [address] PCP - General Family Medicine 11/11/17 documented as of this encounter
--- OUTSIDE RECORDS SUMMARY | 2024-04-16 00:21 | XMS_ITS | Encounter Summary ---
Author Organization [facility] [place] [address] Care Team Providers Care Electrician Wiring Name Role Phone Marcio Devlin DO Primary Care Provider [phone] Reason for Visit * Reason Comments Medication Refill Encounter Details Date Type Department Care Team (Late st Contact Info) Description 02/03/2024 Refill [place] [address] Lola Haley, [facility] [place] [address] Social History Tobacco Use Types Packs/Day Years Used Date Smoking Tobacco: Never Smokeless Tobacco: Never Alcohol Use Standard Drinks/Week Comments Yes 0 (1 standard drink = 0.6 oz pure alcohol) once every couple of months or less [facility] Utilities Answer Date Recorded In the past 12 months has [employer] electric, gas, oil, or water company threatened [...] in a senior living (including now)? No 10/21/2023 IPV Inpatient Questions [...] EDT Hospital Encounter Non-Invasive [place] [address] Arrived 04/29/2024 9:50 AM EDT App[place]ment [place] [address] Luis Alfredo Velazquez MD [facility] [address] 04/29/2024 9:50 AM EDT Appointment MRI at [place] [address] Luis Alfredo Velazquez MD [facility] [place] [address] 06/07/2024 2:30 PM EDT TH Visit (TeleHealth) Gastroenterology at [place] [address] Dajuan Rachel MD [facility] [address] 07/02/2024 2:00 PM EDT Appointment Non-Invasive Cardiology Lab [place] [address] Luis Alfredo Velazquez MD [facility] [address] 07/02/2024 4:00 PM EDT Office Visit Cardiology at [place] [address] Mars Green, YURIY [facility] [place] [address] 07/02/2024 4:40 PM EDT Office Visit Cardiology at [place] [address] Luis Alfredo Velazquez MD [facility] [place] [address] documented as of this encounter Visit Diagnoses Not on filedocumented in this encounter Care Teams Electrician Wiring Relationship Specialty Start Date End Date Marcio Devlin DO [address] [place] [address] PCP - General Family Medicine 11/11/17 documented as of this encounter
--- OUTSIDE RECORDS SUMMARY | 2024-04-16 00:21 | XMS_ITS | Encounter Summary ---
Author Organization [facility] Address [facility] [place] [address] Care Team Providers Care Radio Talk Show Host Name Role Phone Marcio Devlin DO Primary Care Provider [phone] Encounter Details Date Type Department Care Team (Latest Contact Info) Description 12/04/2023 4:21 PM EDT - 12/04/2023 11:59 PM EDT Hospital Encounter XRay at [address] [place] [address] Lizzette Lemos MD [facility] [place] [address] Pacemaker Discharge Disposition: Home Social History Tobacco Use Types Packs/Day Years Used Date Smoking Tobacco: Never Smokeless Tobacco: Never Alcohol Use Standard Drinks/Week Comments Yes 0 (1 standard drink = 0.6 oz pure alcohol) once every couple of months or less [facility] Utilities Answer Date Recorded [...] slept in a chcf (including now)? No 10/21/2023 DH IPV Inpatient [...] by mouth daily. 90 each 3 11/26/2023 Asmanex HFA 200 mcg/actuation HFA Aerosol Inhaler [...] by mouth daily. SUMAtriptan (IMITREX) 20 mg/actuation [place], Non-Aerosol 1 spray as needed. 11/03/2017 metFORMIN [...] mg tablet 1000MG, PO, Once daily 10/15/2010 clindamycin (CLEOCIN T) 1 % LotionIndications:Folli culitis Apply to affected areas on abdomen twice daily for ten days. 60 mL 10/22/2023 Rinvoq 15 mg ER 24 hr tablet TAKE 1 TABLET DAILY 30 tablet 3 10/27/2023 02/03/2024 documented as of this encounter Plan of Treatment Upcoming Encounters Date Type Department Care Team (Late st Contact Info) Description 04/19/2024 10:00 AM EDT Hospital Encounter Non-In[place] [address] Arrived 04/29/2024 9:50 AM EDT [place]ment [place] [phone] Luis Alfredo Velazquez MD [facility] [place] [address] 04/29/2024 9:50 AM EDT Appointment MRI at [place] [address] Luis Alfredo Velazquez MD [facility] [place] [address] 06/07/2024 2:30 PM EDT TH Visit (TeleHealth) Gastroenterology at [address]1000 Dajuan Rachel MD [facility] [place] [address] 07/02/2024 2:00 PM EDT Appointment Non-Invasive Cardiology Lab [address]1000 Luis Alfredo Velazquez MD [facility] [place] [address] 07/02/2024 4:00 PM EDT Office [place] [address] Mars Green PA [facility] [place] [address] 07/02/2024 4:40 PM EDT Office Visit Cardiology at [place] [phone] Luis Alfredo Velazquez MD [facility] [place] [address] documented as of this encounter Procedures Procedure [...] who have questions please contact the health home care and home health aides teacher that requested your imaging first. ? Electronically signed by: Shalonda Mccain MD, [facility] ([phone]), at 12/05/2023 8:45 AM Narrative 12/05/2023 8:45 [...] patients who have questions please contactthe health home care and home health aides teacher that requested your imaging first. Lizzette Lemos MD IMG DX ORDERABLES documented in this encounter Visit Diagnoses Diagnosis Pacemaker Cardiac pacemaker in situ documented in this encounter Care Teams Radio Talk Show Host Relationship Specialty Start Date End Date Marcio Devlin DO [address] [facility] [place] [address] PCP - General Family Medicine 11/11/17 documented as of this encounter
--- OUTSIDE RECORDS SUMMARY | 2024-04-16 00:21 | XMS_ITS | Continuity of Care Document ---
Author Organization [place] - [facility] Machine Talker [facility]ITALNot[facility], [facility] Address [address] [place] [address] Assessment No assessment recorded. Plan of Treatment Reminders Order Date Submit Date Provider Last Modified By Organization Details Last Modified Time Details Appointments None record ed. Lab None record ed. Referral None record ed. Procedures None record ed. Surgeries None record ed. Imaging XR, foot, 3 or more view 024 02/03/20 24 [facility] (Radiology), [address] [place] [address] [place], [address], 4 08:43:41 XR, ankle, 3 or more view 024 02/03/20 24 [facility] (Radiology), [address] [place] [address] [place], [address], 4 09:39:49 Medication Orders None record ed. Patient TargetsNo targets recorded. Patient Instructions Encounter Date Encounter Id Patient Instructions Last Modified By Organization Details Last Modified Time 02/03/2024 [id number] 3 week old injury, barely able to [...] view No observ ation record ed. [email or web address] [facility] (Radiology) [address] [place] [address] , [place], [address], 02/17/2024 08:43:41 02/04/20 24 02/03/2024 XR, ankle , 3 or more view No observ ation record ed. [facility] (Radiology) [address] [place] [address] [place], [address], 02/04/2024 12:36:17 Result Notes None recorded. Problems Name Status Onset Date Resolution Date Notes Provider Name and Address Organization Details Recorded Time Acute urinary tract infection Active [address], [place], [address], [facility] 09/11/2023 10:58:31 Problem Notes None recorded. Medical Equipment None Reported. Allergies Allergen ID Allergen Name Allergen Category Reaction Reaction Severity Criticality Documentation Date Start Date Code Code System Note Provider Name and Address Organization Details Recorded Time 26250 ibuprofen medicatio n chest pain Not available Not available 09/11/2023 5640 RxNoAUNG Warren, [facility] 3 10:31:10 05834 cephalexi n medicatio n vomiting Not available Not available 09/11/2023 2231 RxAUNG Santana, [facility] 3 10:31:32 11312 Augmentin medicatio n vomiting Not available Not available 09/11/2023 15065 2 AUNG Da Silva, [facility] 3 10:31:46 24746 doxycycli ne Not available vomiting Not available Not available 09/11/2023 3640 AUNG Da Silva, [facility] 3 10:32:46 63279 Celebrex medicatio n rash Not available Not available 09/11/2023 76744 7 RxNorm Ivelisse AustinAUNG [facility], [facility] 3 10:33:10 15028 etodolac medicatio n itching mild low 02/03/2024 85281 RxNorm [facility] 4 14:09:51 Medications Name Sig Start [...] Updated DateTime 4 165.1 cm 29.5 kg/m2 05204.8 5 g 97.8 [degF] 97 % 97 % 82 /min 16 /min 135 mm[Hg] 76 mm[Hg] Mai Bailey [facility] 4 14:07:30 Social History Question Answer Notes LastModified by Organizat ion Details LastModified Time Tobacco Smoking Status Never Smoker AUNG David, [facility] 09/11/2023 10:39:24 What Was The Date Of [...] Recorded Time Tdap 03/30/2020 completed FRANCESCA Yancey [facility] 09/11/2023 15:09:38 influenza, unspecified formulation 10/10/2022 completed FRANCESCA Yancey, [facility] 09/11/2023 15:09:46 COVID-19, mRNA, LNP-S, bivalent, PF, 10 mcg/0.2 mL 12/16/2020 FRANCESCA Quevedo, [facility] 09/11/2023 15:09:59 COVID-19, mRNA, LNP-S, bivalent, PF, 10 mcg/0.2 mL 01/13/2021 monica Loving, RN null, [facility] 09/11/2023 15:10:02 COVID-19, mRNA, LNP-S, bivalent, PF, 10 mcg/0.2 mL 08/13/2021 completed FRANCESCA Yancey, [facility] 09/11/2023 15:10:05 COVID-19, mRNA, LNP-S, bivalent, PF, 10 mcg/0.2 mL 02/01/2022 completed FRANCESCA Yancey, [facility] 09/11/2023 15:10:09 COVID-19, mRNA, LNP-S, PF, 30 mcg/0.3 mL dose, jose angel-sucrose 10/18/2022 completed FRANCESCA Yancey, [facility] 09/11/2023 15:10:20 Pneumococcal conjugate PCV 13 02/29/2016 completed FRANCESCA Yancey, [facility] 09/11/2023 15:13:46 pneumococcal, unspecified formulation 03/15/2014 completed FRANCESCA Yancey, [facility] 09/11/2023 15:14:06 zoster, unspecified formulation 10/13/2019 completed FRANCESCA Yancey, [facility] 09/11/2023 15:14:23 zoster, unspecified formulation 02/19/2020 completed FRANCESCA Yanecy, [facility] 09/11/2023 15:14:27 influenza, unspecified formulation 07/16/2023 completed FRANCESCA Yancey, [facility] 09/11/2023 15:14:41 Past Encounters Encounter ID Performer Location Encounter Start Date Encounter Closed Date Diagnosis/Indication Diagnosis SNOMED-CT Code [id number] Alexis Argueta MD [address] [place] [address] 02/03/2024 13:49:12 02/03/2024 15:01:40 Sprain of right ankle [id number] 05 Health Concerns Section Related Observation LastModified by Organization Detai ls LastModified Time None Recorded Concern Status LastModified by Organization Details LastModified Time None Recorded Payers Encounter Date Sequence Insurance Name Policy Number Policy Adorno Covered Member ID Adorno Member ID Guarantor Name 02/03/2024 2 [facility] Lucien Funes [id number] Kim Covarrubias Shantel 02/03/2024 1 [facility] [id number] Kim Covarrubias Shantel [id number] Kim Covarrubias Shantel Notes Date Note Type Note Provider Name and Address Organization Details Recorded Time 02/03/2024 text/html HPI Notes: Pt twisted ankle 3 weeks ago, a couple of times reinjured it since then. Painful to WB, has never used crutches. Alexis Argueta MD [address], [place], [address], [facility]. 02/03/2024 16:05:12 OBGyn Episode No OBEpisode recorded.
--- OUTSIDE RECORDS SUMMARY | 2024-04-16 00:21 | XMS_ITS | Encounter Summary ---
Author Organization Formerly [facility] [place] [address] Care Team Providers Care Thermograph Operator Name Role Phone Marcio Devlin DO Primary Care Provider [phone] Encounter Details Date Type Department Care Team (Latest Contact Info) Description 01/04/2024 Travel Social History Tobacco Use Types Packs/Day Years Used Date Smoking Tobacco: Never Smokeless Tobacco: Never Alcohol Use Standard Drinks/Week Comments Yes 0 (1 standard drink = 0.6 oz pure alcohol) once every couple of months or less [facility] Utilities Answer Date Recorded In the past [...] slept in a assisted (including now)? No 10/21/2023 IPV Inpatient Questions [...] AM EDT Hospital Encounter [place] [address] Arrived 04/29/2024 9:50 AM EDT [place] [address] Luis Alfredo Velazquez MD [facility] [address] 04/29/2024 9:50 AM EDT [place] [address] Luis Alfredo Velazquez MD [facility] [place] [address] 06/07/2024 2:30 PM EDT TH Visit (TeleHealth) Gastroenterology at [place] [address] Dajuan Rachel MD [facility] [place] [address] 07/02/2024 2:00 PM EDT Appointment Non-Invasive Cardiology Lab [address] Luis Alfredo Velazquez MD [facility] [place] [address] 07/02/2024 4:00 PM EDT Office [place] [address] Mars Green PA [facility] [place] [address] 07/02/2024 4:40 PM EDT Office Visit Cardiology at [place] [phone] Luis Alfredo Velazquez MD [facility] [address] documented as of this encounter Visit Diagnoses Not on filedocumented in this encounter Care Teams Thermograph Operator Relationship Specialty Start Date End Date Marcio Devlin DO [address] [place] [address] PCP - General Family Medicine 11/11/17 documented as of this encounter
--- OUTSIDE RECORDS SUMMARY | 2024-04-16 00:21 | XMS_ITS | Encounter Summary ---
Author Organization [facility] Address [facility] [place] [address] Care Team Providers Care Suction Operator Name Role Phone Marcio Devlin DO Primary Care Provider [phone] Encounter Details Date Type Department Care Team (Late st Contact Info) Description 12/04/2023 3:30 PM EDT Office Visit Cardiology at [address] [address] Mars Green PA [facility] [place] [address] Complete heart block; Pacemaker; Pacemaker complications, initial encounter Social History Tobacco Use Types Packs/Day Years Used Date Smoking Tobacco: Never Smokeless Tobacco: Never Alcohol Use Standard Drinks/Week Comments Yes 0 (1 standard drink = 0.6 oz pure alcohol) once every couple of months or less [facility] Utilities Answer Date Recorded In the past 12 months has [employer] electric, gas, oil, or water company threatened [...] EDT Cardiac Electrophysiology Clinic Follow-Up Kim Funes [id number] 12/04/2023 History: Ms. Funes is a pleasant [...] Active Problem List Diagnosis Pacemaker Overview Note: Slip Seat Coverer Model # Serial # Generator [employer] [id number] Atrial Lead [employer] [id number] Ventricular Lead [employer] [id number] Implanted on 10/21/23 for high grade AV [...] disease Colonoscopy 09/19/08 (Dr. Shady Luz at [facility]) for surveillance for dysplasia. Areas [...] 2020 - severe involvement of L colon, zphi-lr-drpwezlp involvement of transverse and R colon. Worse compared to last exam. SSA at hepatic flexure Adalimumab level (garcía) was 12.7 Switched to Stelara ( 03/21/21, first infusion dose) d/t Lost of response to Humira. Stopped Uceris and sulfasalazine in January 2021. [place] 09/2022 - tubular featureless L colon with [...] disease Colonoscopy 09/19/08 (Dr. Shady Luz at [facility]) for surveillance for dysplasia. Areas [...] by mouth daily. SUMAtriptan (IMITREX) 20 mg/actuation [place], Non-Aerosol 1 spray as needed. metFORMIN (GLUCOPHAGE) [...] person, place, and time. Device Interrogation: Data Slip Seat Coverer Model # Serial # Generator [employer] [id number] Atrial Lead [employer] [id number] Ventricular Lead [employer] [id number] Diagnostics Pacing Mode: DDD 60/130/130 Presenting EGMs: -PERSONAL LINES ADVISOR Underlying Rhythm: CHB with escape VVI 30 [...] one week considering current soreness and recent ggq-bi-excumloxxex period. - Scheduled imaging studies (X-ray) immediately [...] AM EDT Hospital Encounter Non-Invasive [place] [address] Arrived 04/29/2024 9:50 [place] [phone] Luis Alfredo Velazquez MD [facility] [place] [address] 04/29/2024 9:50 AM [place] [address] Luis Alfredo Velazquez MD [facility] [place] [address] 06/07/2024 2:30 PM EDT TH Visit (TeleHealth) [place] [address] Dajuan Rachel MD [facility] [place] [address] 07/02/2024 2:00 PM EDT Appointment Non-Invasive Cardiology Lab [place] [phone] Luis Alfredo Velazquez MD [facility] [place] [address] 07/02/2024 4:00 PM EDT Office Visit Cardiology at [place] [phone] Mars Green PA [facility] [place] [address] 07/02/2024 4:40 PM EDT Office Visit Cardiology at [address] [address] Luis Alfredo Velazquez MD [facility] [place] [address] Scheduled Orders Name Type Priority Associated Diagnoses Orde r Schedule XR Chest PA & Lateral (Generic) Imaging Routine Pacemaker Complete heart block Pacemaker complications, initial encounter Expected: 12/04/2023, Expires: 06/04/2024 documented as of this encounter Visit Diagnoses Diagnosis Complete heart block Atrioventricular block, complete Pacemaker Cardiac pacemaker in situ Pacemaker complications, initial encounter documented in this encounter Care Teams Suction Operator Relationship Specialty Start Date End Date Marcio Devlin DO [address] [place] [address] PCP - General Family Medicine 11/11/17 documented as of this encounter
--- OUTSIDE RECORDS SUMMARY | 2024-04-16 00:21 | XMS_ITS | Encounter Summary ---
Author Organization [facility] [place] [address] Care Team Providers Care Billing Services Manager Name Role Phone Marcio Devlin DO Primary Care Provider [phone] Reason for Referral * Diagnostic Test (Routine) - Authorized Specialty Diagnoses / Procedures Referred By Missy escalera Referred To Contact Radiology Diagnoses Complete heart block Procedures MRI Cardiac Morphology Function wwo Contrast Leonidas Velazquez MD [facility] [place] [address] [facility] [place] [address] Referral ID Status Reason Start Date Expiration Date Visits Requested Visits Authorized [id number] Authorized Specialty Service Requested 11/26/2023 05/28/2025 1 1 * Diagnostic Test (Routine) - New Request Specialty Diagnoses / Procedures Referred By Missy escalera Referred To Contact Cardiology Diagnoses Complete heart block Procedures Echocardiogram Transthoracic Leonidas Velazquez MD [facility] [place] [address] [facility] [place] [address] Referral ID Status Reason Start Date Expiration Date Visits Requested Visits Authorized [id number] New Request Specialty Service Requested 11/26/2023 11/25/2024 1 1 Encounter Details Date Type Department Care Team (Late st Contact Info) Description 11/26/2023 4:20 PM EDT Office Visit Cardiology at [address] [address] Leonidas Velazquez MD [facility] [place] [address] Complete heart block; Pacemaker; Other hyperlipidemia; Primary hypertension Social History Tobacco Use Types Packs/Day Years Used Date Smoking Tobacco: Never Smokeless Tobacco: Never Alcohol Use Standard Drinks/Week Comments Yes 0 (1 standard drink = 0.6 oz pure alcohol) once every couple of months or less [facility] Utilities Answer Date Recorded In the past 12 months has th e [employer], gas, oil, or water [employer] threatened to shut off services in your [...] included. [facility] [place] [address] Cardiology Clinic Note Patient Name: Kim Funes : 1960 Visit Context: 63 y.o. female w/ PMH of ulcerative colitis, ankylosing spondylitis, pre diabetes, HTN and HLD who presented to [facility] for symptomatic bradycardia in the setting of [...] 1 of 210 had complete heart block ([email or web address]). Having said she will still have some [...] on her lipid panel. Pacemaker Overview Note: Process Treater Model # Serial # Generator [employer] [id number] Atrial Lead [employer] [id number] Ventricular Lead [employer] [id number] Implanted on 10/21/23 for high grade AV [...] iritis Escalated to weekly Humira 11/2019. ADA (menard) from 6 q 2wk to 12.7 qwk, as well as BID SSZ Colonoscopy Oct 2019: normal rectum, mod-severe inflammation and narrowing from 6-25 cm from the anus, normal remainder of colon. Path: mild active chronic colitis in ac/tc/dc/sc, severe active colitis with ulceration in proximal rectum Colonoscopy December 2020 - severe involvement of L colon, usfp-uy-ylrjmkmu involvement of transverse and R colon. Worse compared to last exam. SSA at hepatic flexure Adalimumab level (menard) was 12.7 Switched to Stelara ( 03/21/21, first infusion dose) d/t Lost of response to Humira. Stopped Uceris and sulfasalazine in January 2021. 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 She lives with her son and grandson. [...] of the staff and students at the [employer] had respiratory and gastrointestinal illnesses. On Friday [...] son, , grandson and fiance - Occupation: [employer] at [employer] - Activity level: no trouble going up [...] mg, Oral, DAILY SUMAtriptan (IMITREX) 20 mg/actuation [place], Non-Aerosol 1 spray, PRN topiramate 50 mg [...] studies Leonidas Velazquez MD, MS, FACC Attending Special Needs Librarian [facility] Lead Embedded Software Engineer [facility] [employer] documented in this encounter [...] 1 of 210 had complete heart block ([email or web address]). Having said she will still have some [...] AM EDT Hospital Encounter Non-[place] [address] Arrived 04/29/2024 9:50 [place] [address] Leonidas Velazquez MD [facility] [place] [address] 04/29/2024 9:50 AM [place] [phone] Leonidas Velazquez MD [facility] [place] [address] 06/07/2024 2:30 PM EDT TH Visit (TeleHealth) Gastroenterology at [place] [phone] Dajuan Rachel MD [facility] [place] [address] 07/02/2024 2:00 PM EDT Appointment Non-[place]vasive [place] [address] Leonidas Velazquez MD [facility] [place] [address] 07/02/2024 4:00 PM EDT Office Visit Cardiology at [address] [phone] Mars Green PA [facility] [place] [address] 07/02/2024 4:40 PM EDT Office Visit Cardiology at [address] [address] Leonidas Velazquez MD [facility] [place] [address] Scheduled Orders Name Type Priority Associated Diagnoses [...] hypertension documented in this encounter Care Teams Billing Services Manager Relationship Specialty Start Date End Date Marcio Devlin DO [address] [place] [address] PCP - General Family Medicine 11/11/17 documented as of this encounter
--- OUTSIDE RECORDS SUMMARY | 2024-04-16 00:21 | XMS_ITS | Encounter Summary ---
Author Organization [facility] [place] [address] Care Team Providers Care Associate Professor Of Library Science Name Role Phone Marcio Devlin DO Primary Care Provider [phone] Encounter Details Date Type Department Care Team (Latest Contact Info) Description 01/20/2024 10:00 AM EDT - 01/20/2024 11:59 PM EDT Hospital Encounter [place] [address] Discharge Disposition: Home Social History Tobacco Use Types Packs/Day Years Used Date Smoking Tobacco: Never Smokeless Tobacco: Never Alcohol Use Standard Drinks/Week Comments Yes 0 (1 standard drink = 0.6 oz pure alcohol) once every couple of months or less [facility] Utilities Answer Date Recorded In the past 12 months has [employer], gas, oil, or water [employer] threatened to shut off services in your [...] by mouth daily. SUMAtriptan (IMITREX) 20 mg/actuation [place], Non-Aerosol 1 spray as needed. 11/03/2017 metFORMIN [...] AM EDT Hospital Encounter [place] [address] Arrived 04/29/2024 9:50 AM EDT [place] [address] Luis Alfredo Velazquez MD [facility] [place] [address] 04/29/2024 9:50 AM EDT [place] [address] Luis Alfredo Velazquez MD [facility] [place] [address] 06/07/2024 2:30 PM EDT TH Visit (TeleHealth) Gastroenterology at [place] [address] Dajuan Rachel MD [facility] [place] [address] 07/02/2024 2:00 PM EDT Appointment Non-Invasive Cardiology Lab [address] Luis Alfredo Velazquez MD [facility] [place] [address] 07/02/2024 4:00 PM EDT Office Visit Cardiology at [place] [address] Mars Green PA [facility] [place] [address] 07/02/2024 4:40 PM EDT Office Visit [place] [address] Luis Alfredo Velazquez MD [facility] [place] [address] documented as of this encounter Procedures Procedure [...] on filedocumented in this encounter Care Teams Associate Professor Of Library Science Relationship Specialty Start Date End Date Marcio Devlin DO [address] [place] [address] PCP - General Family Medicine 11/11/17 documented as of this encounter
--- OUTSIDE RECORDS SUMMARY | 2024-04-16 00:21 | XMS_ITS | Encounter Summary ---
Author Organization [facility] [place] [address] Care Team Providers Care Investigative Writer Name Role Phone Marcio Devlin DO Primary Care Provider [phone] Encounter Details Date Type Department Care Team (Latest Contact Info) Description 11/04/2023 Travel Social History Tobacco Use Types Packs/Day Years Used Date Smoking Tobacco: Never Smokeless Tobacco: Never Alcohol Use Standard Drinks/Week Comments Yes 0 (1 standard drink = 0.6 oz pure alcohol) once every couple of months or less [facility] Utilities Answer Date Recorded In the past [...] AM EDT Hospital Encounter Non-Invasive [place] [address] Arrived 04/29/2024 9:50 AM [place] [address] Luis Alfredo Velazquez MD [facility] [place] [address] 04/29/2024 9:50 AM [place] [phone] Luis Alfredo Velazquez MD [facility] [place] [address] 06/07/2024 2:30 PM EDT TH Visit (TeleHealth) Gastroenterology at [place] [address] Dajuan Rachel MD [facility] [place] [address] 07/02/2024 2:00 PM EDT Appointment Non-Invasive Cardiology Lab [address] Luis Alfredo Velazquez MD [facility] [place] [address] 07/02/2024 4:00 PM EDT [place] [address] Mars Green PA [facility] [place] [address] 07/02/2024 4:40 PM EDT Office Visit Cardiology at [place] [phone] Luis Alfredo Velazquez MD [facility] [place] [address] documented as of this encounter Visit Diagnoses Not on filedocumented in this encounter Care Teams Investigative Writer Relationship Specialty Start Date End Date Marcio Devlin DO [address] [place] [address] PCP - General Family Medicine 11/11/17 documented as of this encounter
--- OUTSIDE RECORDS SUMMARY | 2024-04-16 00:21 | XMS_ITS | Encounter Summary ---
Author Organization [facility] Address [facility] [place] [address] Care Team Providers Care Knockdown Worker Name Role Phone Marcio Devlin DO Primary Care Provider [phone] Encounter Details Date Type Department Care Team (Late st Contact Info) Description 11/04/2023 1:00 PM EST Office Visit Cardiology at [address] [phone] Lorri Mckinney PA [facility] [place] [address] Pacemaker [Z95.0] Social History Tobacco Use Types Packs/Day Years Used Date Smoking Tobacco: Never Smokeless Tobacco: Never Alcohol Use Standard Drinks/Week Comments Yes 0 (1 standard drink = 0.6 oz pure alcohol) once every couple of months or less [facility] Utilities Answer Date Recorded In the past 12 months has [employer], gas, oil, or water company threatened [...] Cardiac Electrophysiology Post-Implant Device Interrogation Kim Funes [id number] 11/04/2023 History: Kim Funes is a 63 y.o. 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 Lives in [facility] with her , Lucien. 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 Physical Exam: Vitals: 11/04/23 1245 BP: 174/73 [...] prior studies for comparison. Device Interrogation: Data Salicylic Acid Blender Model # Serial # Generator Now [employer] [id number] Atrial Lead [employer] [id number] Ventricular Lead [employer] [id number] Diagnostics Pacing Mode: DDD at LRL 60 bpm Presenting EGMs: /RESOURCE RECOVERY ENGINEER Underlying Rhythm: sinus rhythm in the 60s without intrinsic ventricular conduction >30 bpm Atrial Episodes: 0 Ventricular Episodes: 0 Atrial Pacin% Ventricular Pacin% Battery and Leads Voltage: not reported Status: 10.5 yrs (after programming) Magnet Rate: 100 bpm Charge Time: N/A Impedances (ohms) Sensing (mV) Thresholds HV RA RV LV RA RV LV RA RV LV N/A 558 718 N/A 5.0 RESOURCE RECOVERY ENGINEER N/A 0.9V @ 0.4ms 0.4V @ 0.4ms N/A Assessment: 63 y.o. 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 Recommend general cardiology follow-up per Discharge Summary YURIY Alberto 11/04/2023 Pager: [phone] documented in this encounter Plan of Treatment Upcoming Encounters Date Type Department Care Team (Late st Contact Info) Description 04/19/2024 10:00 AM EDT Hospital Encounter Non-[place] [address] Arrived 04/29/2024 9:50 AM [place] [address] Luis Alfredo Velazquez MD [facility] [place] [address] 04/29/2024 9:50 AM [place] [address] Luis Alfredo Velazquez MD [facility] [place] [address] 06/07/2024 2:30 PM EDT TH Visit (TeleHealth) Gastroenterology at [place] [phone] Dajuan Rachel MD [facility] [place] [address] 07/02/2024 2:00 PM EDT Appointment Non-Invasive Cardiology Lab [address] Luis Alfredo Velazquez MD [facility] [place] [address] 07/02/2024 4:00 PM EDT Office [place] [address] Mars Green PA [facility] [place] [address] 07/02/2024 4:40 PM EDT Office Visit Cardiology at [address] Luis Alfredo Velazquez MD [facility] [place] [address] documented as of this encounter Visit Diagnoses Diagnosis Pacemaker [Z95.0] Cardiac pacemaker in situ documented in this encounter Care Teams Knockdown Worker Relationship Specialty Start Date End Date Marcio Devlin DO [address] [place] [address] PCP - General Family Medicine 11/11/17 documented as of this encounter
--- OUTSIDE RECORDS SUMMARY | 2024-04-16 00:21 | XMS_ITS | Encounter Summary ---
Author Organization [facility] [place] [address] Care Team Providers Care First Beater Name Role Phone Marcio Devlin DO Primary Care Provider [phone] Reason for Visit * Reason Onset Date Comments Post Procedure Call 10/31/2023 Encounter Details Date Type Department Care Team (Late st Contact Info) Description 10/31/2023 Notes Only Cardiology at [address] [address] Veronica Gann, RN Post Procedure Call Social History Tobacco Use Types Packs/Day Years Used Date Smoking Tobacco: Never Smokeless Tobacco: Never Alcohol Use Standard Drinks/Week Comments Yes 0 (1 standard drink = 0.6 oz pure alcohol) once every couple of months or less [facility] Utilities Answer Date Recorded In the past 12 months has [employer], gas, oil, or water [employer] threatened to shut off services in your [...] AM EDT Hospital Encounter Non-Invasive [place] [address] Arrived 04/29/2024 9:50 AM EDT Appointment MRI at [address] Luis Alfredo Velazquez MD [facility] [place] [address] 04/29/2024 9:50 AM EDT Appointment MRI at [address]1000 Luis Alfredo Velazquez MD [facility] [place] [address] 06/07/2024 2:30 PM EDT TH Visit (TeleHealth) Gastroenterology at [address]1000 Dajuan Rachel MD [facility] [place] [address] 07/02/2024 2:00 PM EDT Appointment Non-Invasive Cardiology Lab [address]1000 Luis Alfredo Velazquez MD [facility] [place] [address] 07/02/2024 4:00 PM EDT Office Visit Cardiology at [place] [phone] Mars Green PA [facility] [place] [address] 07/02/2024 4:40 PM EDT Office Visit Cardiology at [place] [phone] Luis Alfredo Velazquez MD [facility] [place] [address] documented as of this encounter Visit Diagnoses Not on filedocumented in this encounter Care Teams First Beater Relationship Specialty Start Date End Date Marcio Devlin DO [address] [place] [address] PCP - General Family Medicine 11/11/17 documented as of this encounter
--- OUTSIDE RECORDS SUMMARY | 2024-04-16 00:21 | XMS_ITS | Encounter Summary ---
Author Organization [facility] [place] [address] Care Team Providers Care Audio Visual Project Manager Name Role Phone Marcio Devlin DO Primary Care Provider [phone] Encounter Details Date Type Department Care Team (Late st Contact Info) Description 12/04/2023 Telephone Cardiology at [address] [phone] Rafaela Dillon Social History Tobacco Use Types Packs/Day Years Used Date Smoking Tobacco: Never Smokeless Tobacco: Never Alcohol Use Standard Drinks/Week Comments Yes 0 (1 standard drink = 0.6 oz pure alcohol) once every couple of months or less [facility] Utilities Answer Date Recorded In the past 12 months has [facility] [employer], gas, oil, or water [employer] threatened to shut off services in your [...] slept in a fci (including now)? No 10/21/2023 DH IPV Inpatient [...] AM EDT Hospital Encounter Non-Invasive [place] [address] Arrived 04/29/2024 9:50 AM EDT Appointment MRI at [address]1000 Luis Alfredo Velazquez MD [facility] [place] [address] 04/29/2024 9:50 AM EDT Appointment MRI at [address]1000 Luis Alfredo Velazquez MD [facility] [place] [address] 06/07/2024 2:30 PM EDT TH Visit (TeleHealth) Gastroenterology at [address]1000 Dajuan Rachel MD [facility] [place] [address] 07/02/2024 2:00 PM EDT Appointment Non-Invasive Cardiology Lab [address]1000 Luis Alfredo Velazquez MD [facility] [place] [address] 07/02/2024 4:00 PM EDT Office Visit Cardiology at [place] [phone] Mars Green PA [facility] [place] [address] 07/02/2024 4:40 PM EDT Office Visit Cardiology at [place] [phone] Luis Alfredo Velazquez MD [facility] [place] [address] documented as of this encounter Visit Diagnoses Not on filedocumented in this encounter Care Teams Audio Visual Project Manager Relationship Specialty Start Date End Date Marcio Devlin DO [address] [place] [address] PCP - General Family Medicine 11/11/17 documented as of this encounter
--- OUTSIDE RECORDS SUMMARY | 2024-04-16 00:21 | XMS_ITS | Encounter Summary ---
Author Organization [facility] [place] [address] Care Team Providers Care Glue Plant Operator Name Role Phone Marcio Devlin DO Primary Care Provider [phone] Encounter Details Date Type Department Care Team (Late st Contact Info) Description 11/11/2023 Telephone Cardiology at [address] [address] Clau Romero RN Social History Tobacco Use Types Packs/Day Years Used Date Smoking Tobacco: Never Smokeless Tobacco: Never Alcohol Use Standard Drinks/Week Comments Yes 0 (1 standard drink = 0.6 oz pure alcohol) once every couple of months or less [facility] Utilities Answer Date Recorded In the past 12 months has [facility] [employer], gas, oil, or water [employer] threatened to shut off services in your [...] has been scanned into Media, by [employer] [facility]. Clau Romero (Jodie) RN, BSN Cardiology Ambulatory Clinic documented in this encounter Plan of Treatment Upcoming Encounters Date Type Department Care Team (Late st Contact Info) Description 04/19/2024 10:00 AM EDT Hospital Encounter Non-[place] [address] Arrived 04/29/2024 9:50 AM EDT Appointment MRI at [place] [phone] Luis Alfredo Velazquez MD [facility] [place] [address] 04/29/2024 9:50 AM EDT Appointment MRI at [place] [phone] Luis Alfredo Velazquez MD [facility] [place] [address] 06/07/2024 2:30 PM EDT TH Visit (TeleHealth) Gastroenterology at [place] [phone] Dajuan Rachel MD [facility] [place] [place] [address] 07/02/2024 2:00 PM EDT Appointment Non-Invasive Cardiology Lab [place] [phone] Luis Alfredo Velazquez MD [facility] [place] [address] 07/02/2024 4:00 PM EDT Office Visit Cardiology at [address] [phone] Mars Green PA [facility] [address] [place], [place] [address] 07/02/2024 4:40 PM EDT Office Visit Cardiology at [address] [phone] Luis Alfredo Velazquez MD [facility] [place] [address] documented as of this encounter Visit Diagnoses Not on filedocumented in this encounter Care Teams Glue Plant Operator Relationship Specialty Start Date End Date Marcio Devlin DO [address] [address] PCP - General Family Medicine 11/11/17 documented as of this encounter
--- OUTSIDE RECORDS SUMMARY | 2024-04-16 00:21 | XMS_ITS | Clinical Summary ---
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 Having said she will still have some [...] disease Colonoscopy 09/19/08 ([facility] [place] 2020 - severe involvement of L colon, ocrn-jf-ataoaqci involvement of transverse and R colon. Worse compared to last exam. SSA at hepatic flexure Adalimumab level (garcía) was 12.7 Switched to Stelara ( 03/21/21, first infusion dose) d/t Lost of response to Humira. Stopped Uceris and sulfasalazine in January 2021. [place] 09/2022 - tubular featureless L colon with slightly diminished vascular pattern. Histology with mild colitis in sigmoid and inactive in descending. SSA in hep flex. DIFFICULT AIRWAY Overview (02/24/2018): As described in 2006 anesthesia record in [facility]. Encounters Date Type Department Care Team Description 02/03/2024 [place] [address] Lola Haley DO 01/20/2024 10:00 AM EDT - 01/20/2024 11:59 PM EDT Hospital Encounter Non-[place] [address] Discharge Disposition: Home from Last 3 Months Immunizations Name Administration Dates Next Due Hep A/B (TwinRix) 02/21/2011,08/14/2010 Inactivated Polio Vaccine (IPOL) 05/16/2013 Influenza Quadrivalent, Preservative Free 2020,07/16/2019,07/27/2018 Influenza Trivalent w/Preservative 07/08/2014, Influenza Vaccine, Whole 06/15/2005 Moderna Covid-19 Monovalent 12Yr+ (College Intern 100mcg) 01/13/2021,12/16/2020 Pneumococcal Conjugate (Prevnar 13) 02/29/2016 [...] couple of months or less [facility] Utilities Answer Date Recorded In the past [...] in a intermediate (including now)? No 10/21/2023 IPV Inpatient Questions [...] EDT Hospital Encounter Non-[place] [address] Arrived 04/29/2024 9:50 AM [place] [address] [address] [facility] [address] 04/29/2024 9:50 AM EDT Appointment MRI at [place] [phone] [address] [facility] [address] 06/07/2024 2:30 PM EDT TH Visit (TeleHealth) Gastroenterology at [place] [phone] [facility] [place] [address] 07/02/2024 2:00 PM EDT Appointment Non-Invasive Cardiology Lab [place] [phone] [address] [facility] [address] 07/02/2024 4:00 PM EDT Office Visit Cardiology at [place] [phone] [facility] [address] 07/02/2024 4:40 PM EDT Office Visit Cardiology at [address] [phone] [address] [facility] [place] [address] Health Maintenance Due Date Last Done Comments CT Colonography 1961 FIT DNA 1961 FIT 1961 Sigmoidoscopy 1961 DM Opthalmology Exam 1971 DM Urine Microalbumin yearly 1971 HIV screen 1979 Hepatitis C Screening 1979 HPV test 1991 PAP Smear 1991 Breast Cancer Share Decision Needed 2001 Breast Cancer screening 2001 DM Hemoglobin A1c 11/18/2011 08/19/2011 Advance Directive 2016 Covid-19 Vaccine (3 - 2022-2 4 season) 2023 01/13/2021, 12/16/2020 Influenza (Flu) [...] 02/19/2020, 10/13/2019 Medical Devices Implanted Type Area Instrument Technician Device Identifier Shelf Expiration Date Model / Serial / Lot Jono,Anselmo,Bob,Incont ([id number]) - [id number] Implanted:Qty: 1 on 03/10/2018 by Liang Fong MD at [facility] - [id number] 05/27/2020 RICHARD-DS01 B / / [id number] Bsx Ingevity + [id number] Lead10/21/2023 Implanted:Qty: 1 on 10/21/2023 by Dilip Berumen MD Lead Heart [employer] [id number] / [id number] / Bsx Ingevity + [id number] Lead-10/21/2023 Implanted:Qty: 1 on 10/21/2023 by Dilip Berumen MD Lead Heart [employer] [id number] / [id number] / Bsx Accolade Mri L311-10/21/2023 Implanted:Qty: 1 on 10/21/2023 by Dilip Berumen MD Pacemaker Chest Wall [employer] L311 / [id number] / Description:When scanned at [facility] the above implant (L311, 7841-52, 7542-59) is [...] Priority Date/Time Associated Diagnosis Comments LAB SCAN 04/08/2024 12:00 AM EDT CARDIAC DEVICE CHECK - REMOTE Routine 02/23/2024 8:02 AM EDT BASIC METABOLIC PANEL (NON-FASTING) Routine 10/22/2023 2:41 AM EST COLONOSCOPY Routine 09/18/2023 3:57 PM EST HEMOGLOBIN A1C Routine 08/19/2011 5:44 PM EST from Last 3 Months or Most Recently Relevant to Health Maintenance Results * Scan Doc: Lab (04/08/2024 12:00 AM EDT) Narrative 04/08/2024 12:00 AM EDT Ordered by an unspecified provider. Scanning Provider MEDIA MGR SCAN EXT O RDR/RSLT * Cardiac Device Check - Remote (02/23/2024 8:02 AM EDT) Anatomical Region Laterality Modality Other 02/23/2024 8:02 AM EDT Jim Limon MD IMPLANTABLE CARDIAC DEVICE * (ABNORMAL) Basic Metabolic Panel (non-fasting) (10/22/2023 2:41 AM EST) Glucose Lvl 115 65 - 199 mg/dL [facility] Comment:Diabetes: >=200 mg/d L plus symptoms BUN 21(H) 8 - 18 mg/dL [facility] Creatinine 1.12 0.70 - 1.20 mg/dL [facility] Sodium 142 135 - 145 mmol/L [facility] Potassium 3.8 3.5 - 5.0 mmol/L [facility] Comment: Please note: ??Patients with WBC >100,000 may have falsely elevated Potassium levels. ??For accurate Potassium quantification in these patients send serum separator tube (gold top) for subsequent determinations. ??Contact the Clinical Chemistry Laboratory if there are any questions. Chloride 107 98 - 107 mmol/L [facility] CO2 23 22 - 31 mmol/L [facility] Anion Gap 12 5 - 15 mmol/L [facility] Calcium 9.1 8.5 - 10.5 mg/dL [facility] Estimated GFR 56(L) >=60 mL/min/1. 73 m?? [facility] Comment: This patient's estimated [...] Miranda MD CHEMISTRY ORDERABLES Performing Organization Address City/State/[facility] Co de Phone Number [facility] [place] [address] * COLONOSCOPY (09/18/2023 3:57 PM EST) COLONOSCOPY [facility] Endoscopy ___ Procedure Date: 09/18/2023 3:57 PM ? Patient Name: Kim Funes ? Date of : 1960 ? Age: 63 ? Order #: [id number] ? Instrument Name: [id number] ? ___ Procedure: ? Colonoscopy Indications: ? [...] preparation was evaluated ? using the BBPS (Cushman Bowel ? Preparation Scale) with scores of: [...] ? - Please have labs checked at [facility]. ? - Await pathology results. ? Attending Participation: ? I personally performed the entire procedure. ? _ L. Jose Rachel MD 09/18/2023 5:05:33 PM Number of Addenda: 0 Note Initiated On: 09/18/2023 3:57 PM [facility]ATION 09/18/2023 3:57 PM EST Marcio Devlin DO GENERAL SURGICAL ORD ERABLES [employer]ATION * HEMOGLOBIN A1C (08/19/2011 5:44 PM EST) Hemoglobin A1C 5.6 4.3 - 6.1 % [facility] Est Avg Gluc 114 mg/dL [facility] Comment: eAG equivalents for HbA1c percentages: HbA1c(%) [...] ADA website: ??http://professional.diabetes.org/glucosecalculator.aspx Reference: Ortiz GOODMAN, Amara Chavarria, Brandyn R, et al. ??Translating the A1C assay into estimated average glucose values. ??Diabetes Care 2008:31(8):3645-3685. Blood specimen (specimen) 08/19/2011 5:44 PM EST 08/19/2011 5:48 PM EST Marc Chan MD CHEMISTRY ORDERABLES [facility] MILLENNIUM from Last 3 Months or Most Recently [...] capacity to make decision: Yes Care Teams Boat Outboard Engine Mechanic Relationship Specialty Start Date End Date Marcio Devlin DO [address] [place] [address] PCP - General Family Medicine 11/11/17
--- OUTSIDE RECORDS SUMMARY | 2024-04-16 00:21 | XMS_ITS | Encounter Summary ---
Author Organization [facility] [place] [address] Care Team Providers Care Floorhand Name Role Phone Marcio Devlin DO Primary Care Provider [phone] Encounter Details Date Type Department Care Team (Latest Contact Info) Description 01/06/2024 Travel Social History Tobacco Use Types Packs/Day Years Used Date Smoking Tobacco: Never Smokeless Tobacco: Never Alcohol Use Standard Drinks/Week Comments Yes 0 (1 standard drink = 0.6 oz pure alcohol) once every couple of months or less [facility] Utilities Answer Date Recorded In the [...] a long term (including now)? No 10/21/2023 IPV Inpatient Questions [...] AM EDT Hospital Encounter Non[place] [address] Arrived 04/29/2024 9:50 [place] [address] Luis Alfredo Velazquez MD [facility] [place] [address] 04/29/2024 9:50 [place] [phone] Luis Alfredo Velazquez MD [facility] [place] [address] 06/07/2024 2:30 PM EDT TH Visit (TeleHealth) Gastroenterology at [place] [address] Dajuan Rachel MD [facility] [place] [address] 07/02/2024 2:00 PM EDT Appointment Non-Invasive Cardiology Lab [address]1000 Luis Alfredo Velazquez MD [facility] [place] [address] 07/02/2024 4:00 PM EDT Office [place] [address] Mars Green PA [facility] [place] [address] 07/02/2024 4:40 PM EDT Office Visit Cardiology at [place] [phone] Luis Alfredo Velazquez MD [facility] [place] [address] documented as of this encounter Visit Diagnoses Not on filedocumented in this encounter Care Teams Floorhand Relationship Specialty Start Date End Date Marcio Devlin DO [address] [place] [address] PCP - General Family Medicine 11/11/17 documented as of this encounter
--- OUTSIDE RECORDS SUMMARY | 2024-04-16 00:21 | XMS_ITS | Encounter Summary ---
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 No 10/21/2023 IPV Inpatient Questions [...] AM EDT Hospital Encounter Non-Invasive [place] [address] Arrived 04/29/2024 9:50 AM EDT [place] [address] Luis Alfredo Velazquez MD [facility] [place] [address] 04/29/2024 9:50 AM ED[place] [phone] Luis Alfredo Velazquez MD [facility] [place] [address] 06/07/2024 2:30 PM EDT TH Visit (TeleHealth) Gastroenterology at [place] [address] Dajuan Rachel MD [facility] [place] [address] 07/02/2024 2:00 PM EDT Appointment Non-Invasive Cardiology Lab [address]1000 Luis Alfredo Velazquez MD [facility] [place] [address] 07/02/2024 4:00 PM EDT Office [place] [address] Mars Green PA [facility] [place] [address] 07/02/2024 4:40 PM EDT Office Visit Cardiology at [place] [phone] Luis Alfredo Velazquez MD [facility] [place] [address] documented as of this encounter Visit Diagnoses Not on filedocumented in this encounter Care Teams Ore Storage Drier Relationship Specialty Start Date End Date Marcio Devlin DO [address] [place] [address] PCP - General Family Medicine 11/11/17 documented as of this encounter
--- OUTSIDE RECORDS SUMMARY | 2024-04-16 00:22 | XMS_ITS | Encounter Summary ---
Author Organization [facility] [place] [address] Care Team Providers Care Sugarcane Planter Name Role Phone Marcio Devlin DO Primary Care Provider [phone] Reason for Visit * Reason Comments Specialty Pharmacy Review Upadacitinib ( rinvoq) 15mg tablets Encounter Details Date Type Department Care Team (Late st Contact Info) Description 09/03/2023 Specialty [place] [address] Francisca Olivas, [facility] Social History Tobacco Use Types Packs/Day Years [...] and the patient's eligibility to fill at [facility] is pending further review at this time. documented in this encounter Plan of Treatment Upcoming Encounters Date Type Department Care Team (Late st Contact Info) Description 04/19/2024 10:00 AM EDT Hospital Encounter Non-Invasive [place] [phone] Arrived 04/29/2024 9:50 [place] [phone] Luis Alfredo Velazquez MD [facility] [place] [address] 04/29/2024 9:50 AM EDT Appointment MRI at [place] [address] Luis Alfredo Velazquez MD [facility] [place] [address] 06/07/2024 2:30 PM EDT TH Visit (TeleHealth) Gastroenterology at [place] [address] Dajuan Rachel MD [facility] [place] [address] 07/02/2024 2:00 PM EDT Appointment Non-Invasive Cardiology Lab [address] Luis Alfredo Velazquez MD [facility] [place] [address] 07/02/2024 4:00 PM EDT Office Visit Cardiology at [place] [address] [place] [facility] [address] 07/02/2024 4:40 PM EDT Office [place] [address] Luis Alfredo Velazquez MD [facility] [place] [address] documented as of this encounter Visit Diagnoses Not on filedocumented in this encounter Care Teams Sugarcane Planter Relationship Specialty Start Date End Date Marcio Devlin DO [address] [place] [id number] PCP - General Family Medicine 11/11/17 documented as of this encounter
--- OUTSIDE RECORDS SUMMARY | 2024-04-16 00:22 | XMS_ITS | Encounter Summary ---
Author Organization [facility] Address [facility] [place] [address] Care Team Providers Care Boiler Attendant Name Role Phone Marcio Devlin DO Primary Care Provider [phone] Reason for Visit * Auth/Cert (Routine) Specialty Diagnoses / Procedures Referred By Contac t Referred To Contact Diagnoses Complete heart block Bradycardia Procedures EMERGENCY IPI Elle Tristan MD [facility] [address] [facility] Referral ID Status Reason Start Date Expiration Date Visits Re quested Visits Authorized [id number] 1 1 Encounter Details Date Type Department Care Team (Late st Contact Info) Description 10/20/2023 9:01 AM EST - 10/22/2023 11:16 AM EST Hospital [place] [address] Elle Tristan MD [facility] [place] [address] Glenn Miranda MD [facility] [place] [address] Humberto Lynn MD [facility] [place] [address] CHB (complete heart block); Folliculitis Discharge Disposition: Home Social History Tobacco Use Types Packs/Day Years Used Date Smoking Tobacco: Never Smokeless Tobacco: Never Alcohol Use Standard Drinks/Week Comments Yes 0 (1 standard drink = 0.6 oz pure alcohol) once every couple of months or less [facility] Utilities Answer Date Recorded In the [...] AM EST Discharge Summary Patient Name: Kim Funes Patient Age: 63 y.o. Language: Iraqi Race: White Ethnicity: Not nor Admit date: 10/20/2023 Discharge date and time: 10/22/2023 Attending Physician: Humberto Lynn MD Discharge Physician: Humberto Lynn MD ID: Kim Funes is a 63 y.o. female w/ PMH of ulcerative colitis, ankylosing spondylitis, HTN and HLD who presented [place] [facility] [place] symptomatic bradycardia in the setting of [...] spondylitis. PCP Contact Information: Marcio Devlin DO [address] [facility] [facility] [place] [address] Pending Studies and Lab Data: none No [...] disease Colonoscopy 09/19/08 (Dr. Shady Luz at [facility]) for surveillance for dysplasia. Areas of [...] 2020 - severe involvement of L colon, qudx-zj-dsyhxptr involvement of transverse and R colon. Worse compared to last exam. SSA at hepatic flexure Adalimumab level (garcía) was 12.7 Switched to Stelara ( 03/21/21, first infusion dose) d/t Lost of response to Humira. Stopped Uceris and sulfasalazine in January 2021. [place] 09/2022 - tubular featureless L colon with [...] , patient went to her PCP at [facility] internal medicine where she was evaluated [...] and request was made to transfer to [facility] for ongoing care and possible permanent pacemaker evaluation. Upon interview in the [facility], patient resting comfortably in bed without concern. She states that shehas ongoing fatigue and weakness but denies lightheadedness or dizziness. Hospital Course: Kim Funes was admitted to the Hospital Medicine Service on 10/20/2023. The following issues were addressed and she was discharged on 10/22/2023. #Complete Heart Block w/ Narrow Junctional Escape After admission to the [facility], patient's home beta-rosita was discontinued. After evaluation [...] who have questions please contact the health medicare interviewer that requested your imaging first. Chest One View (Exam End: 10/21/2023 8:35 PM) Impression No acute pulmonary findings Thank you for letting us participate in the care of this patient. If you are a health care provider and have any questions regarding this report, please contact the number below. For patients who have questions please contact the health medicare interviewer that requested your imaging first. Discharge Conditions/Prognosis: [...] 10 mg Refills: 0 SUMAtriptan 20 mg/actuation [place], Non-Aerosol Commonly known as: IMITREX 1 spray [...] 10 mg Refills: 0 SUMAtriptan 20 mg/actuation [place], Non-Aerosol Commonly known as: IMITREX 1 spray [...] Center 11/04/2023 11:00 AM Rosemarie Morrow APRN [facility] GASTRO [facility] 01/06/2024 1:00 PM Gabe Fong MD [facility] RHEUM [facility] Your Inpatient Medical Team at [facility] Name(s) of your inpatient provider(s): Humberto Lynn MD Your Primary Care Provider: Marcio Devlin DO [phone] For questions regarding this document or issues relating to this hospitalization on the Medical Service, please contact your inpatient physician through the [facility] Expressive Therapist . Issues afterhours and on weekends will be handled by the Hospitalist staff on-call. FINAL ICD/PACEMAKER RECOMMENDATIONS: 1. Standard post implant discharge instructions (see below): 2. Medications as listed above. 3. You may use ice packs over the incision. Make sure to use a cloth bleaching supervisor (such as a towel) in between the [...] F. The office scheduling phone number is [phone]. ARM MOVEMENT RESTRICTIONS POST-IMPLANT For 4-6 Weeks: [...] product, please call the device clinic at [phone]. General Instructions None Future Appointments and Orders Future Appointments and Orders Future Appointments Provider Department Dept Phone 11/04/2023 11:00 AM Rosemarie Morrow APRN Gastroenterology at [facility] Arrive at: Home [phone] To view instructions for your video visit, click here, or visit this website: [email or web address] If you have not previously downloaded the [facility] patient portal software, [employer], or the [facility] maria c, please do so by clicking [...] see: How to Disable Pop-Up Block for [facility] Video Visits Zoom asking for a meeting password? - Exit out of the Zoom program and try the link again 11/04/2023 1:00 PM Lorri Mckinney PA Cardiology at [facility] Arrive at: Marketing Writer Area 4A [phone] 01/06/2024 1:00 PM Gabe Fong MD Rheumatology at [facility] Arrive at: Marketing Writer Area 5C [phone] Inpatient Provider Contact Information: Clarence Pearl MD [...] 10 mg Refills: 0 SUMAtriptan 20 mg/actuation [place], Non-Aerosol Commonly known as: IMITREX 1 spray [...] Center 11/04/2023 11:00 AM Rosemarie Morrow APRN [facility] GASTRO [facility] 01/06/2024 1:00 PM Gabe Fong MD [facility] RHEUM [facility] Your Inpatient Medical Team at [facility] Name(s) of your inpatient provider(s): Humberto Lynn MD Your Primary Care Provider: Marcio Devlin DO [phone] For questions regarding this document or issues relating to this hospitalization on the Medical Service, please contact your inpatient physician through the [facility] Expressive Therapist . Issues afterhours and on weekends will be handled by the Hospitalist staff on-call. FINAL ICD/PACEMAKER RECOMMENDATIONS: 1. Standard post implant discharge instructions (see below): 2. Medications as listed above. 3. You may use ice packs over the incision. Make sure to use a cloth bleaching supervisor (such as a towel) in between the [...] F. The office scheduling phone number is [phone]. ARM MOVEMENT RESTRICTIONS POST-IMPLANT For 4-6 Weeks: [...] product, please call the device clinic at [phone]. documented in this encounter Medications at Time [...] by mouth daily. SUMAtriptan (IMITREX) 20 mg/actuation [place], Non-Aerosol 1 spray as needed. 11/03/2017 metFORMIN [...] daily for ten days. 60 mL 10/22/2023 upadacitinib (Rinvoq) 15 mg ER 24 hr [...] and examined on critical care rounds. Kim Funes is a 63 y.o. female with the [...] Cardiology ICU Progress Note Patient info: Name: Kmi Funes : 1960 PCP: Marcio Devlin DO PCP phone number: [phone] Date of Admission: 10/20/2023 ( Hospital Day 1 day ) Attending:Glenn Miranda MD ID: Kim Funes is a 63 y.o. female w/ PMH [...] in the last 7068 hours. Invalid input(s): [id number] Recent Labs 10/21/23 0754 10/20/23 2106 10/20/23 [...] oxide, potassium phosphate Assessment & Plan: Kim Funes is a 63 y.o. female w/ PMH [...] service for ongoing care. Glenn Miranda MD, [facility] Staff Endodontics Dentist * Elle Tristan MD - 10/20/2023 1:46 PM EST Cardiovascular Critical Care Attending Note Kim Funes 1960 Age: 63 y.o. PCP: Marcio Devlin DO Date of Service: 10/20/2023 Date of Admission: 10/20/2023 Length of Stay Hospital Day 0 days The patient was seen and examined on critical care rounds. Kim Funes is a 63 y.o. female with the [...] Admission History and Physical Patient Name: Kim Funes Service: Responsible Attending: Glenn Miranda MD PCP: Marcio Devlin, ID: Kim Funes is a 63 y.o. female w/ PMH [...] , patient went to her PCP at [facility] internal medicine where she was evaluated [...] and request was made to transfer to [facility] for ongoing care and possible permanent pacemaker evaluation. Upon interview in the [facility], patient resting comfortably in bed without concern. She states that shehas ongoing fatigue and weakness but denies lightheadedness or dizziness. Hospital Course to date After admission to the [facility], patient's home beta-rosita was discontinued. After evaluation [...] disease Colonoscopy 09/19/08 (Dr. Shady Luz at [facility]) for surveillance for dysplasia. Areas of [...] iritis Escalated to weekly Humira 11/2019. ADA ([place]) from 6 q 2wk to 12.7 qwk, as well as BID SSZ Colonoscopy Oct 2019: normal rectum, mod-severe inflammation and narrowing from 6-25 cm from the anus, normal remainder of colon. Path: mild active chronic colitis in ac/tc/dc/sc, severe active colitis with ulceration in proximal rectum Colonoscopy December 2020 - severe involvement of L colon, lmhw-ge-varcrbhe involvement of transverse and R colon. Worse compared to last exam. SSA at hepatic flexure Adalimumab level ([place]) was 12.7 Switched to Stelara ( 03/21/21, first infusion dose) d/t Lost of response to Humira. Stopped Uceris and sulfasalazine in January 2021. [place] 09/2022 - tubular featureless L colon with [...] in the last 7068 hours. Invalid input(s): [id number] Heme: No results for input(s): LDH, HAPTOGLOBIN, URICACID in the last 168 hours. Diagnostic Studies: CXR: pending tomorrow TTE: 10/20 Left ventricular size and systolic function is normal. The left ventricular ejection fraction is 67% by Elliott's biplane. There are no segmental wall motion abnormalities. Right ventricular systolic function is normal. No significant valvular disease. No prior studies for comparison. ASSESSMENT: Kim Funes is a 63 y.o. female w/ PMH [...] Cardiology ICU H&P Patient info: Name: Kim Funes : 1960 PCP: Marcio Devlin DO PCP phone number: [phone] Date of Admission: 10/20/2023 ( Hospital Day 0 days ) Attending:Elle Tristan MD ID: Kim Funes is a 63 y.o. female w/ PMH [...] , patient went to her PCP at [facility] internal medicine where she was evaluated [...] and request was made to transfer to [facility] for ongoing care and possible permanent pacemaker evaluation. Upon interview in the CV, patient resting comfortably in bed without concern. [...] disease Colonoscopy 09/19/08 (Dr. Shady Luz at [facility]) for surveillance for dysplasia. Areas of [...] WITH BX performed by YAQUELIN ESTRADA at [facility] ENDOSCOPY PRO COLONOSCOPY, BIOPSY N/A 03/04/2017 COLONOSCOPY FLEXIBLE, WITH BX (WRVU 3.66) performed by Raúl Austin MD at [facility] ENDOSCOPY PRO COLONOSCOPY, BIOPSY N/A 11/09/2019 COLONOSCOPY FLEXIBLE, WITH BX (WRVU 3.66) performed by Froilan Sahni MD at [facility] ENDOSCOPY PRO COLONOSCOPY, BIOPSY N/A 12/19/2020 COLONOSCOPY FLEXIBLE, WITH BX (WRVU 3.66) performed by Dajuan Rachel MD at [facility] ENDOSCOPY PRO COLONOSCOPY, BIOPSY N/A 09/24/2022 COLONOSCOPY FLEXIBLE, WITH BX (WRVU 3.66) performed by Dajuan Rachel MD at [facility] ENDOSCOPY PRO COLONOSCOPY, BIOPSY N/A 09/18/2023 COLONOSCOPY FLEXIBLE, WITH BX (WRVU 3.56) performed by Dajuan Rachel MD at [facility] ENDOSCOPY PRO COLONOSCOPY, DIAGNOSTIC N/A 11/09/2019 COLONOSCOPY, DIAGNOSTIC performed by Froilan Sahni MD at [facility] ENDOSCOPY PRO COLONOSCOPY, REMV LESN, SNARE 01/02/2011 COLONOSCOPY, POLYPECTOMY, REMOVAL LESION BY SNARE performed by YAQUELIN ESTRADA at [facility] ENDOSCOPY PRO COLONOSCOPY, REMV LESN, SNARE N/A 03/04/2017 COLONOSCOPY, POLYPECTOMY, REMOVAL LESION BY SNARE (WRVU 4.67) performed by Raúl Austin MD at [facility] ENDOSCOPY PRO COLONOSCOPY, REMV LESN, SNARE N/A 09/24/2022 COLONOSCOPY, POLYPECTOMY, REMOVAL LESION BY SNARE (WRVU 4.67) performed by Dajuan Rachel MD at [facility] ENDOSCOPY PRO COMBINED ANT/POST COLPORRHAPHY W CYSTO N/A 03/10/2018 COLPORRHAPHY ANTERIOR-POSTERIOR; INC CYSTOURETHROSCOPY (WRVU 14.44) performed by Liang Fong MD at [facility] MAIN OR PRO REVAGINAL PROLAPSE, UTEROSACRAL N/A 03/10/2018 COLPOPEXY, VAGINAL, INTRAPERITONEAL APPROACH (WRVU 11.66) [facility] SLING OPER STRES INCONTINENCE N/A 03/10/2018 URETHRAL SUSPENSION, SLING\FASCIA OR SYNTHETIC (WRVU 12.13) performed by Liang Fong MD at [facility] MAIN OR PRO VAG HYST, RMV TUBE/OVARY N/A 03/10/2018 HYSTERECTOMY, VAGINAL, REMOVAL TUBE(S) & OR OVARY(S) (WRVU 15.94) performed by Liang Fong MD at [facility] MAIN OR SALPINGECTOMY XR FLUORO INJECTION DRAINAGE JOINT LG RIGHT Right 03/09/2019 XR Fluoro Guided Joint Injection Large Right 03/09/2019 [facility] RAD XRAY Family History Family [...] Blood Gas) No results for input(s): PHART, IMA2SNP, PO2ART, UHV5BZU, LACTATEVEN, FXU3GTJ, PFRATIOART2 in the last 168 hours. VBG (Venous Blood Gas) No results for input(s): PHVEN, RFR8DIC, PO2VEN, UML4SRN, LACTATEVEN in the last 168 hours. Mixed Venous Sat No results for input(s): N9WVZT7 in the last 168 hours. Intake/Output Summary [...] in the last 68 hours. Invalid input(s): [id number] No results for input(s): POCGLU in the last 168 hours. Heme No results for input(s): LDH, HAPTOGLOBIN, URICACID in the last 168 hours. ABG (Arterial Blood Gas) No results for input(s): PHART, GDJ9OTR, PO2ART, CXD2DJZ, LACTATEVEN, RKF4NXB, PFRATIOART2 in the last 168 hours. VBG (Venous Blood Gas) No results for input(s): PHVEN, JUA3FCM, PO2VEN, OTN3CJT, LACTATEVEN in the last 168 hours. Mixed Venous Sat No results for input(s): E1EUQE5 in the last 168 hours. Microbiology: Microbiology [...] (flush), lidocaine, nitroGLYcerin Assessment & Plan: Kim Funes is a 63 y.o. female w/ PMH [...] Jean Roca, DO Internal Medicine, PGY-1 Cardiology, [facility] 10/20/23 2:14 PM * Jason Castro MD - 10/20/2023 10:39 AM EST Inpatient Cardiac Electrophysiology- Initial Consultation Date of Consultation: 10/20/2023 Admit Date: 10/20/2023 Patient Location: [facility] Attending Endodontics Dentist: Riley Reason for Consult: Complete Heart Block [...] up proceeding with PPM tomorrow HPI: Kim Funes is a 63 y.o. female [...] by mouth daily. SUMAtriptan (IMITREX) 20 mg/actuation [place], Non-Aerosol 1 spray as needed. metFORMIN (GLUCOPHAGE) [...] 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 Gera Martell MD Cardiac Electrophysiology Fellow [facility] Pager [phone] 10/20/2023 I met with the patient today [...] I reviewed in detail, listed above: Ms. Funes is admitted with symptomatic bradycardia due to [...] is related to her ankylosing spondylitis. Ms. Funes agrees with the above plan. Dr. 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 Current Living Arrangements: home/apartment/condo. Accessibility Concerns:house 1 floor with 3 LISS. Current Functional Ability: Independent, Assistive Person DME used at home: none DME Needed at Discharge: none Patient is insured through: Primary Insurance: [employer] Payor: [facility] / Plan: [facility] PPO / Product Type: *No Product type* / Secondary Insurance: N/A Prescription Coverage: Yes This plan was formulated with input from patient and team. All are in agreement with plan. GHADA Shah, RN Inpatient Theology Teacher- Cardiology Office of Care Management Pager #: [phone] * Consult Note - Chepe Russo MD - 10/22/2023 8:00 AM EST Images from the original note were not included. [facility] [place] [address] [address] CARDIAC ELECTROPHYSIOLOGY CONSULT NOTE Patient: Kim Funes : 1960 Attending: Humberto Lynn MD Problem [...] disease Colonoscopy 09/19/08 (Dr. Shady Luz at [facility]) for surveillance for dysplasia. Areas of [...] 2020 - severe involvement of L colon, lyxj-yi-cuqybuwb involvement of transverse and R colon. Worse compared to last exam. SSA at hepatic flexure Adalimumab level (garcía) was 12.7 Switched to Stelara ( 03/21/21, first infusion dose) d/t Lost of response to Humira. Stopped Uceris and sulfasalazine in January 2021. [place] 09/2022 - tubular featureless L colon with slightly diminished vascular pattern. Histology withmild colitis in sigmoid and inactive in descending. SSA in hep flex. 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 female with PMH of ulcerative colitis, ankylosing spondylitis, HTN, prediabetes and HLD who was found to be in complete heart block. She underwent placement of a left sided [employer] dual chamber pacemaker on 10/21/23. Procedure was [...] expected position. No pneumothorax. 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 Device is functioning well and CXR unremarkable. Recommendations: - Pocket incision is well healed without signs or symptoms of infection - Device is functioning appropriately - Patient will have 10 day follow up here and will then follow up at [facility] Case was discussed with Dr. Berumen who agrees with recommendations as documented above. EP Consult service will continue to follow patient. x Recommendations are above, please page if further consultation required. Chepe Russo [employer] [id number] Associated attestation - Dilip Berumen MD - 10/22/2023 11:33 AM EST Post-op day # 1 s/p dual-chamber pacemaker for symptomatic complete heart block . Patient feels much, much better. Post implant interrogation - excellent RA and RV parameters. CXR- good and stable lead positions, no sign of PTX. OK to discharge patient from EP standpoint. Will arrange ~10 [facility]wound check at [facility] CIED clinic and ~ 91 day check at [facility]. Dilip Berumen MD, PhD, [facility] Cardiac Electrophysiology 10/22/2023 11:32 AM * [...] disease Colonoscopy 09/19/08 (Dr. Shady Luz at [facility]) for surveillance for dysplasia. Areas of [...] surrogate would be surrogate decision maker per [place] surrogate decision making law. (Only good for 180 days) Any patient receiving care in [place] must abide by [place] law. 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) Prior [...] Current DME: none Home Address confirmed as: [address] [place] [phone] Social & Family Supports: All names listed below confirmed with patient as current and correct Extended Emergency Contact Information Primary Emergency Contact: Lucien Funes Address: [address] [place] [phone] [facility] Mobile Relation: Spouse Secondary Emergency [...] points: Addiction likely Health/Prescription Coverage: Primary Insurance: [employer] Payor: [employer] / Plan: [facility] PPO / Product Type: *No Product type* / Secondary Insurance: N/A ; Prescription Coverage: Yes Preferred Pharmacy: [facility] - [place], [place] - [address] [facility] [address] [facility] [address] [facility] [place], [place] - [address] [facility] [address] [facility] [address] [employer] Status: Patient is a : No Primary Care Provider confirmed: Marcio Devlin DO [phone] Patient/Caregiver Goals of Treatment: return home with [...] AM EDT Hospital Encounter Non-[place] [address] Arrived 04/29/2024 9:50 [place] [address] Luis Alfredo Velazquez MD [facility] [place] [address] 04/29/2024 9:50 [place] [phone] Luis Alfredo Velazquez MD [facility] [place] [address] 06/07/2024 2:30 PM EDT TH Visit (TeleHealth) [place] [address] Dajuan Rachel MD [facility] [place] [address] 07/02/2024 2:00 PM EDT Appointment Non-[place]vasive [place] [phone] Luis Alfredo Velazquez MD [facility] [place] [address] 07/02/2024 4:00 PM EDT Office Visit Cardiology at [address] [phone] [place] [facility] [place] [address] 07/02/2024 4:40 PM EDT Office Visit Cardiology at [address] [phone] Luis Alfredo Velazquez MD [facility] [place] [address] documented as of this encounter Procedures Procedure [...] EST HC CBC,PLT & AUTO DIFF Routine 1:40 PM EST HC PHOSPHORUS, SERUM Routine [...] who have questions please contact the health medicare interviewer that requested your imaging first. ? Narrative [...] patients who have questions please contactthe health medicare interviewer that requested your imaging first. Dilip Berumen MD IMG DX ORDERABLES * (ABNORMAL) Differential, Automated (10/22/2023 2:41 AM EST) Neutrophils % 71.9 % [facility] Neutr Abs (ANC) 6.59(H) 1.70 - 6.10 x10(3)/[facility]OR[facility] Lymphocytes % 19.1 % [facility] Lymphocytes Abs 1.8 0.9 - 3.2 x10(3)/[facility] LABORATORY Monocytes % 7.9 % [facility] Monocyte Abs 0.7 0.3 - 0.9 x10(3)/[facility] LABORATORY Eosinophils % 0.7 % [facility] Eosinophils Abs 0.1 0.0 - 0.4 x10(3)/[facility] LABORATORY Basophils % 0.2 % [facility] Basophils Abs 0.0 0.0 - 0.1 x10(3)/[facility] LABORATORY Immature Gran % 0.20 % [facility] Comment: Immature granulocytes(IG's)percentage and absolute count will include metamyelocytes, myelocytes, and promyelocytes. Blood smears from CBCs yielding IG's will be scanned manually for concordance. If this scan disagrees with the automated IG or if promyelocytes are noted, a manual differential will be performed. Melanie Gran Abs 0.02 0.00 - 0.04 x10(3)/mc L [facility] Blood 10/22/2023 2:41 AM EST 10/22/2023 2:41 AM EST Narrative Resulting Agency Comment Spec In Lab Clifton Segundo MD HEMATOLOGY ORDERABLE S [facility] [place] [address] * (ABNORMAL) Hemogram (10/22/2023 2:41 AM EST) WBC 9.2 4.0 - 9.5 x10(3)/[facility] LAB[facility]ATORY RBC 4.11 4.00 - 5.21 x10(6)/[facility] Hemoglobin 12.9 11.7 - 15.5 g/dL [facility] Hematocrit 38.4 35.7 - 45.8 % [facility] MCV 93.4 82.6 - 94.4 [facility]ORY MCH 31.4 27.1 - 32.0 pg [facility] MCHC 33.6 31.7 - 35.0 g/dL [facility] Platelets 190 145 - 357 x10(3)/[facility] LABORATORY RDWSD 48.7(H) 37.0 - 46.0 [facility]ORY RDWCV 14.1 11.5 - 14.1 % [facility] MPV 10.5 7.6 - 12.9 [facility] nRBC % Auto 0.0 % [facility] nRBC Abs Auto 0.000 0.000 - 0.000 x10(3)/[facility] Blood 10/22/2023 2:41 AM EST 10/22/2023 2:41 AM EST Narrative Resulting Agency Comment Spec In Lab Clifton Segundo MD HEMATOLOGY ORDERABLE S [facility] [place] [address] * (ABNORMAL) Basic Metabolic Panel (non-fasting) (10/22/2023 2:41 AM EST) Glucose Lvl 115 65 - 199 mg/dL [facility] Comment:Diabetes: >=200 mg/d L plus symptoms BUN 21(H) 8 - 18 mg/dL [facility] Creatinine 1.12 0.70 - 1.20 mg/dL [facility] Sodium 142 135 - 145 mmol/L [facility] Potassium 3.8 3.5 - 5.0 mmol/L [facility] Comment: Please note: ??Patients with WBC >100,000 may have falsely elevated Potassium levels. ??For accurate Potassium quantification in these patients send serum separator tube (gold top) for subsequent determinations. ??Contact the Clinical Chemistry Laboratory if there are any questions. Chloride 107 98 - 107 mmol/L [facility] CO2 23 22 - 31 mmol/L [facility] Anion Gap 12 5 - 15 mmol/L [facility] Calcium 9.1 8.5 - 10.5 mg/dL [facility] Estimated GFR 56(L) >=60 mL/min/1. 73 m?? [facility] Comment: This patient's estimated GFR [...] Miranda MD CHEMISTRY ORDERABLES Performing Organization Address [facility] Co de Phone Number [facility] [place] [address] * Phosphorus (10/22/2023 2:41 AM EST) Phosphorus 4.3 2.5 - 4.5 mg/dL [facility] Blood 10/22/2023 2:41 AM EST 10/22/2023 2:41 AM EST Narrative Resulting Agency Comment Spec In Lab Glenn Miranda MD CHEMISTRY ORDERABLES Performing Organization Address [facility] Phone Number [facility] [place] [address] * (ABNORMAL) Magnesium (10/22/2023 2:41 AM EST) Magnesium 0.66(L) 0.69 - 1.07 mmol/L [facility] Blood 10/22/2023 2:41 AM EST 10/22/2023 2:41 AM EST Narrative Resulting Agency Comment Spec In Lab Glenn Miranda MD CHEMISTRY ORDERABLES Performing Organization Address [facility] de Phone Number [facility] [place] [address] * POCT Glucose (10/21/2023 9:43 PM EST) POC Glucose 131 65 - 199 mg/dL [facility] Comment: Supplemental ranges: <140 mg/dL before meals <180 mg/dL all other times of the day Blood 10/21/2023 9:43 PM EST 10/21/2023 9:43 PM EST Humberto Lynn MD POINT OF CARE TEST ORDERABLES [facility] [place] [address] * XR Chest One View (10/21/2023 8:35 [...] who have questions please contact the health medicare interviewer that requested your imaging first. ? Narrative [...] patients who have questions please contactthe health medicare interviewer that requested your imaging first. Humberto Lynn MD IMG DX ORDERABLES * POCT Glucose (10/21/2023 3:33 PM EST) POC Glucose 75 65 - 199 mg/dL [facility] Comment: Supplemental ranges: <140 mg/dL before meals <180 mg/dL all other times of the day Blood 10/21/2023 3:33 PM EST 10/21/2023 3:33 PM EST Glenn Miranda MD POINT OF CARE TEST O RDERABLES Performing Organization Address City/State/[facility] Co de Phone Number [facility] [place] [address] * ELECTROPHYSIOLOGY PROCEDURE (10/21/2023 3:04 PM EST) Anatomical Region Laterality Modality Other Narrative 10/24/2023 12:54 PM EST Table formatting from the original result was not included. Images from the original result were not included. Shovel Oiler: Dilip Berumen MD Fellow: Gera Martell MD Procedures: Dual chamber pacemaker implantation, peripheral venogram Procedure Date: 10/21/2023 Patient: Kim Funes Patient : 1960 Procedure Report: Anesthesia: MAC [...] the entire procedure. Lead and Generator Data Tower Foreman Model # Serial # Generator [employer] [id number] Atrial Lead [employer] [id number] Ventricular Lead [employer] [id number] Pace / Sense Data Sensed wave (mV) [...] of this procedure. Dilip Berumen MD, PhD, [facility] Cardiac Electrophysiology Dilip Berumen MD EP PROCEDURE ORDERAB LES * POCT Glucose (10/21/2023 11:31 AM EST) POC Glucose 104 65 - 199 mg/dL [facility] Comment: Supplemental ranges: <140 mg/dL before meals <180 mg/dL all other times of the day Blood 10/21/2023 11:3 1 AM EST 10/21/2023 11:31 AM EST Glenn Miranda MD POINT OF CARE TEST O RDERABLES [facility] [place] [address] * (ABNORMAL) Basic Metabolic Panel (non-fasting) (10/21/2023 7:55 AM EST) Glucose Lvl 114 65 - 199 mg/dL [facility] Comment:Diabetes: >=200 mg/d L plus symptoms BUN 23(H) 8 - 18 mg/dL [facility] Creatinine 1.18 0.70 - 1.20 mg/dL [facility] Sodium 143 135 - 145 mmol/L [facility] Potassium 4.2 3.5 - 5.0 mmol/L [facility] Comment: Please note: ??Patients with WBC >100,000 may have falsely elevated Potassium levels. ??For accurate Potassium quantification in these patients send serum separator tube (gold top) for subsequent determinations. ??Contact the Clinical Chemistry Laboratory if there are any questions. Chloride 111(H) 98 - 107 mmol/L [facility] CO2 21(L) 22 - 31 mmol/L [facility] Anion Gap 11 5 - 15 mmol/L [facility] Calcium 10.1 8.5 - 10.5 mg/dL [facility] Estimated GFR 52(L) >=60 mL/min/1. 73 m?? [facility] Comment: This patient's estimated GFR [...] In Lab Glenn Miranda MD CHEMISTRY ORDERABLES [facility] [place] [address] * POCT Glucose (10/21/2023 7:54 AM EST) POC Glucose 107 65 - 199 mg/dL [facility] Comment: Supplemental ranges: <140 mg/dL before meals <180 mg/dL all other times of the day Blood 10/21/2023 7:54 AM EST 10/21/2023 7:54 AM EST Glenn Miranda MD POINT OF CARE TEST O RDERABLES [facility] [place] [address] * Differential, Automated (10/21/2023 6:04 AM EST) Neutrophils % 56.2 % [facility] Neutr Abs (ANC) 3.81 1.70 - 6.10 x10(3)/[facility] LAB[facility] Lymphocytes % 33.4 % [facility] Lymphocytes Abs 2.3 0.9 - 3.2 x10(3)/[facility] LAB[facility]ORY Monocytes % 9.0 % [facility] Monocyte Abs 0.6 0.3 - 0.9 x10(3)/[facility] LAB[facility]ORY Eosinophils % 0.9 % [facility] Eosinophils Abs 0.1 0.0 - 0.4 x10(3)/[facility] LAB[facility]ORY Basophils % 0.4 % [facility] Basophils Abs 0.0 0.0 - 0.1 x10(3)/[facility] LAB[facility] Immature Gran % 0.10 % [facility] Comment: Immature granulocytes(IG's)percentage and absolute count will include metamyelocytes, myelocytes, and promyelocytes. Blood smears from CBCs yielding IG's will be scanned manually for concordance. If this scan disagrees with the automated IG or if promyelocytes are noted, a manual differential will be performed. Melanie Gran Abs 0.01 0.00 - 0.04 x10(3)/[facility] Blood 10/21/2023 6:04 AM EST 10/21/2023 6:21 AM EST Narrative Resulting Agency Comment Spec In Lab Clifton Segundo MD HEMATOLOGY ORDERABLE S [facility] [place] [address] * (ABNORMAL) Hemogram (10/21/2023 6:04 AM EST) WBC 6.8 4.0 - 9.5 x10(3)/[facility] LAB[facility] RBC 4.06 4.00 - 5.21 x10(6)/[facility] Hemoglobin 12.6 11.7 - 15.5 g/dL [facility] Hematocrit 38.1 35.7 - 45.8 % [facility] MCV 93.8 82.6 - 94.4 [facility] LAB[facility]ATORY MCH 31.0 27.1 - 32.0 pg [facility] MCHC 33.1 31.7 - 35.0 g/dL [facility] Platelets 211 145 - 357 x10(3)/[facility] LAB[facility]ATORY RDWSD 50.4(H) 37.0 - 46.0 [facility] LAB[facility]ORY RDWCV 14.5(H) 11.5 - 14.1 % [facility] MPV 10.9 7.6 - 12.9 [facility] LAB[facility]ORY nRBC % Auto 0.0 % [facility] nRBC Abs Auto 0.000 0.000 - 0.000 x10(3)/[facility] Blood 10/21/2023 6:04 AM EST 10/21/2023 6:21 AM EST Narrative Resulting Agency Comment Spec In Lab Clifton Segundo MD HEMATOLOGY ORDERABLE S [facility] [place] [address] * Phosphorus (10/21/2023 6:04 AM EST) Phosphorus 4.5 2.5 - 4.5 mg/dL [facility] Comment:result rechecked-EL Blood 10/21/2023 6:04 AM EST 10/21/2023 6:21 AM EST Narrative Resulting Agency Comment Spec In Lab Glenn Miranda MD CHEMISTRY ORDERABLES Performing Organization Address [facility] Phone Number [facility] [place] [address] * Magnesium (10/21/2023 6:04 AM EST) Magnesium 0.70 0.69 - 1.07 mmol/L [facility] Blood 10/21/2023 6:04 AM EST 10/21/2023 6:21 AM EST Narrative Resulting Agency Comment Spec In Lab Glenn Miranda MD CHEMISTRY ORDERABLES Performing Organization Address [facility] Phone Number [facility] [place] [address] * POCT Glucose (10/20/2023 9:06 PM EST) POC Glucose 116 65 - 199 mg/dL [facility] Comment: Supplemental ranges: <140 mg/dL before meals <180 mg/dL all other times of the day Blood 10/20/2023 9:06 PM EST 10/20/2023 9:06 PM EST Elle Tristan MD POINT OF CARE T EST ORDERABLES Performing Organization Address [facility] Phone Number [facility] [place] [address] * POCT Glucose (10/20/2023 4:50 PM EST) POC Glucose 94 65 - 199 mg/dL [facility] Comment: Supplemental ranges: <140 mg/dL before meals <180 mg/dL all other times of the day Blood 10/20/2023 4:50 PM EST 10/20/2023 4:50 PM EST Elle Tristan MD POINT OF CARE T EST ORDERABLES Performing Organization Address City/[facility]/ZIP Co de Phone Number [facility] [place] [address] * Differential, Automated (10/20/2023 1:40 PM EST) Neutrophils % 42.4 % [facility] Neutr Abs (ANC) 2.79 1.70 - 6.10 x10(3)/[facility] LAB[facility]ORY Lymphocytes % 48.1 % [facility] Lymphocytes Abs 3.2 0.9 - 3.2 x10(3)/[facility] LAB[facility]ORY Monocytes % 8.2 % [facility] Monocyte Abs 0.5 0.3 - 0.9 x10(3)/[facility] LAB[facility]ORY Eosinophils % 0.8 % [facility] Eosinophils Abs 0.0 0.0 - 0.4 x10(3)/[facility] LAB[facility]ORY Basophils % 0.3 % [facility] Basophils Abs 0.0 0.0 - 0.1 x10(3)/[facility] LAB[facility]ORY Immature Gran % 0.20 % [facility] Comment: Immature granulocytes(IG's)percentage and absolute count will include metamyelocytes, myelocytes, and promyelocytes. Blood smears from CBCs yielding IG's will be scanned manually for concordance. If this scan disagrees with the automated IG or if promyelocytes are noted, a manual differential will be performed. Melanie Gran Abs 0.01 0.00 - 0.04 x10(3)/[facility] Blood 10/20/2023 1:40 PM EST 10/20/2023 1:57 PM EST Narrative Resulting Agency Comment Spec In Lab Clifton Segundo MD HEMATOLOGY ORDERABLE S Performing Organization Address City/[facility]/ZIP Co de Phone Number [facility] [place] [address] * (ABNORMAL) Hemogram (10/20/2023 1:40 PM EST) WBC 6.6 4.0 - 9.5 x10(3)/[facility] LAB[facility]ORY RBC 4.08 4.00 - 5.21 x10(6)/[facility] Hemoglobin 12.6 11.7 - 15.5 g/dL [facility] Hematocrit 37.4 35.7 - 45.8 % [facility] MCV 91.7 82.6 - 94.4 fL [facility] MCH 30.9 27.1 - 32.0 pg [facility] MCHC 33.7 31.7 - 35.0 g/dL [facility] Platelets 228 145 - 357 x10(3)/[facility] LAB[facility]ATORY RDWSD 48.5(H) 37.0 - 46.0 [facility] LABORATORY RDWCV 14.3(H) 11.5 - 14.1 % [facility] MPV 10.9 7.6 - 12.9 [facility] LAB[facility]ORY nRBC % Auto 0.0 % [facility] nRBC Abs Auto 0.000 0.000 - 0.000 x10(3)/[facility] Blood 10/20/2023 1:40 PM EST 10/20/2023 1:57 PM EST Narrative Resulting Agency Comment Spec In Lab Clifton Segundo MD HEMATOLOGY ORDERABLE S [facility] [place] [address] * (ABNORMAL) Phosphorus (10/20/2023 1:40 PM EST) Phosphorus 1.6(L) 2.5 - 4.5 mg/dL [facility] Blood 10/20/2023 1:40 PM EST 10/20/2023 1:57 PM EST Narrative Resulting Agency Comment Spec In Lab Elle Tristan MD CHEMISTRY ORDER EDUAR Performing Organization Address City/[facility]/ZIP Co de Phone Number [facility] [place] [address] * Magnesium (10/20/2023 1:40 PM EST) Magnesium 0.71 0.69 - 1.07 mmol/L [facility] Blood 10/20/2023 1:40 PM EST 10/20/2023 1:57 PM EST Narrative Resulting Agency Comment Spec In Lab Elle Tristan MD CHEMISTRY ORDER EDUAR Performing Organization Address [facility] Co de Phone Number [facility] [place] [address] * (ABNORMAL) Basic Metabolic Panel (non-fasting) (10/20/2023 1:40 PM EST) Pathologist [facility] Glucose Lvl 92 65 - 199 mg/dL [facility] Comment:Diabetes: >=200 mg/d L plus symptoms BUN 23(H) 8 - 18 mg/dL [facility] Creatinine 1.04 0.70 - 1.20 mg/dL [facility] Sodium 145 135 - 145 mmol/L [facility] Potassium 3.9 3.5 - 5.0 mmol/L [facility] Comment: Please note: ??Patients with WBC >100,000 may have falsely elevated Potassium levels. ??For accurate Potassium quantification in these patients send serum separator tube (gold top) for subsequent determinations. ??Contact the Clinical Chemistry Laboratory if there are any questions. Chloride 110(H) 98 - 107 mmol/L [facility] CO2 20(L) 22 - 31 mmol/L [facility] Anion Gap 15 5 - 15 mmol/L [facility] Calcium 9.9 8.5 - 10.5 mg/dL [facility] Estimated GFR 61 >=60 mL/min/1. 73 m?? [facility] Comment: This patient's estimated GFR [...] Lab Elle Tristan MD CHEMISTRY ORDER EDUAR [facility] [place] [address] * ECHO COMPLETE W CONTRAST (10/20/2023 11:32 AM EST) EF 67 HEART[employer] SYSTEM Anatomical Region Laterality Modality Cardiac Other 10/20/2023 10:3 4 AM EST Narrative 10/20/2023 1:32 PM EST [address] [place] [address] ? Echocardiogram Report Name: KIM FUNES ? Study Date: 10/20/2023 10:34 AMBP: 138/56 mmHg ? Patient Location: [facility] CV24 A : 1960 ? Height: 65.5 in ? Account: [id number] Age: 63 yrs ? Weight: 170 lb Gender: Female ?BSA: 1.9 m2 Ordering Physician: ELLE TRISTAN Referring Physician: DONI HERBERT Exam Location: [facility]. Interpretation Summary Left ventricular size and systolic function is normal. The left ventricular ejection fraction is 67% by Elliott's biplane. There are no segmental wall motion abnormalities. Right ventricular systolic function is normal. No significant valvular disease. No prior studies for comparison. Procedure Complete-[id number]. Image enhancement Optison was used for left [...] Aneurysmal ?15-16 ?? diffuse Procedure Note Luis Aflredo Velazquez MD - 10/20/2023 [address] [place] [address] Echocardiogram Report Name: ANAKIM Study Date: 0:34 AMBP: 138/56 mmHg Patient Location: [address] : 1960 Height: 65.5 in Account: [id number] Age: 63 yrs Weight: 170 lb Gender: Female BSA: 1.9 m2 Ordering Physician: ELLE TRISTAN Referring Physician: DONI HERBERT Exam Location: [facility]. Interpretation Summary Left ventricular size and systolic function is normal. The leftventricular ejection fraction is 67% by Elliott's biplane. There are no segmental wallmotion abnormalities. Right ventricular systolic function is normal. No significant valvular disease. No prior studies for comparison. Procedure Complete-[id number]. Image enhancement Optison was used for left [...] Discontinued, Routine 1400 (Given - Provider: Alyssa Shearer, RN) 0857 (Given - Provider: Gracie Harding, [...] Medication 1345 (New Bag - Provider: Alyssa Shearer, RN)1445 (Stopped - Provider: Alyssa Shearer RN) [...] Alyssa Shearer, FRANCESCA)2249 (Stopped - Provider: Kayla Sánchez RN) sodium chloride 0.9 % (flush) (BD PosiFlush Normal Saline 0.9) flush 5 mL 5 mL, Intravenous, 2 TIMES DAILY, First dose on Fri10/20/23 at 1400, Until Discontinued, Routine 1400 (Given - Provider: Alyssa Shearer, RN)210 (Given - Provider: Kayla Sánchez, FRANCESCA) 0858 (Given - Provider: Gracie Harding, RN)1310 (NOV [...] 1940 (Given - Provider: Marcio Sibley RN) 0218 (Given - Provider: Marcio Sibley RN)0614 (Given - Provider: Marcio Sibley RN) dextrose [...] of tube = 37.5 grams.), Routine 1310 ([facility] Hold - Provider: Admin Adt - Reason: Transfer to a Procedural area)1517 ([facility] Unhold - Provider: Admin Adt) lidocaine (Xylocaine) 1% (10 mg/mL) injection 3 mg 3 mg (0.3 mL), Subcutaneous, ONCE PRN, 1 dose, Starting on Fri10/20/23 at 1304, Until Fri10/22/23 at 1321, for discomfort with PIV insertion, Routine 1310 ([facility] Hold - Provider: Admin Adt - Reason: Transfer to a Procedural area)1517 ([facility] Unhold - Provider: Admin Adt) magnesium oxide (Mag-Ox) tablet 800 mg 800 mg, Oral, DAILY PRN, Starting on Fri10/20/23 at 1434, Until Fri10/22/23 at 1321, Hypomagnesemia, Administer for serum magnesium of 0.5 - 0.79 mMol/L, Routine 1637 (Given - Provider: Alyssa Shearer, FRANCESCA) 1310 ([facility] Hold - Provider: Admin Adt - Reason: Transfer to a Procedural area)1517 ([facility] Unhold - Provider: Admin Adt) 0615 (Given [...] last 24 to 72 hours., Routine 1310 ([facility] Hold - Provider: Admin Adt - Reason: Transfer to a Procedural area)1517 ([facility] Unhold - Provider: Admin Adt) perflutren protein-A microsphers (Optison) (0.22 mg/mL) injection 1.8 mL (COMPLETED) 1.8 mL, Intravenous, ONCE PRN, 1 dose, Starting on Fri10/20/23 at 1133, Until Fri10/20/23 at 1058, Per Protocol, Routine 1058 (Given - Provider: Day A Jude) potassium phosphate 10 mMol in sodium chloride 0.9% 100 mL infusion 10 mmol, Intravenous, EVERY 4 HOURS PRN, Starting on Fri10/20/23 at 1449, Until Fri10/22/23 at 1321, Administer over 4 Hours, Hypophosphatemia, Administer one 10 mmol bag, over 4 hours for serum phosphate 2-2.4 mg/dL. 1310 ([facility] Hold - Provider: Admin Adt - Reason: Transfer to a Procedural area)1517 ([facility] Unhold - Provider: Admin Adt) sodium chloride 0.9 % (flush) (BD PosiFlush Normal Saline 0.9) flush 5-20 mL 5-20 mL, Intravenous, EVERY 1 MIN PRN, Starting on Fri10/20/23 at 1304, Until Fri10/22/23 at 1321, flush, Flush pertains to all indwelling lines. Flush per protocol found in the job aid using the link provided on this medication record., Routine 1310 ([facility] Hold - Provider: Admin Adt - Reason: Transfer to a Procedural area)1517 ([facility] Unhold - Provider: Admin Adt) Linked Groups [...] Routine documented in this encounter Care Teams Boiler Attendant Relationship Specialty Start Date End Date Marcio Devlin DO [address] [place] [address] PCP - General Family Medicine 11/11/17 documented as of this encounter
--- OUTSIDE RECORDS SUMMARY | 2024-04-16 00:22 | XMS_ITS | Encounter Summary ---
Author Organization Formerly [facility], Later [facility] Address [facility] [place] [address] Care Team Providers Care Stores Assistant Name Role Phone Marcio Devlin DO Primary Care Provider [phone] Encounter Details Date Type Department Care Team (Late st Contact Info) Description 09/18/2023 Orders [place] [address] Dajuan Rachel MD [facility] [address] Ulcerative pancolitis with complication Social History Tobacco [...] place to sleep or slept in a alf (including now)? No 05/03/2022 Sex and Gender Information Value Date Recorded Sex Assigned at Female 07/21/2021 4:56 PM EDT Gender Identity Female 07/21/2021 4:56 PM EDT Sexual Orientation Straight 07/21/2021 4: 56 PM EDT documented as of this encounter Plan of Treatment Upcoming Encounters Date Type Department Care Team (Late st Contact Info) Description 04/19/2024 10:00 AM EDT Hospital Encounter Non-[place] [phone] Arrived 04/29/2024 9:50 [place] [phone] Luis Alfredo Velazquez MD [facility] [place] [address] 04/29/2024 9:50 AM [place] [phone] Luis Alfredo Velazquez MD [facility] [place] [address] 06/07/2024 2:30 PM EDT TH Visit (TeleHealth) [place] [phone] Dajuan Rachel MD [facility] [place] [address] 07/02/2024 2:00 PM EDT Appointment Non-[place] [address] Luis Alfredo Velazquez MD [facility] [place] [address] 07/02/2024 4:00 PM EDT Office Visit Cardiology at [address] [phone] Mars Green PA [facility] [place] [address] 07/02/2024 4:40 PM EDT Office Visit Cardiology at [address] [phone] Luis Alfredo Velazquez MD [facility] [place] [address] Scheduled Orders Name Type Priority Associated Diagnoses [...] complication documented in this encounter Care Teams Stores Assistant Relationship Specialty Start Date End Date Marcio Devlin DO [address] [place] [address] PCP - General Family Medicine 11/11/17 documented as of this encounter
--- OUTSIDE RECORDS SUMMARY | 2024-04-16 00:22 | XMS_ITS | Encounter Summary ---
Author Organization Formerly [facility], [facility] [place] [address] Care Team Providers Care After School Coordinator Name Role Phone Marcio Devlin DO Primary Care Provider [phone] Encounter Details Date Type Department Care Team (Latest Contact Info) Description 07/14/2023 External Results [facility] [employer] [address] [place] [address] Provider, His Will MD None Ankylosing spondylitis [...] AM EDT Hospital Encounter Non-Invasive [place] [address] Arrived 04/29/2024 9:50 AM EDT [place] [address] Luis Alfredo Velazquez MD [facility] [place] [address] 04/29/2024 9:50 AM EDT [place] [address] Luis Alfredo Velazquez MD [facility] [place] [address] 06/07/2024 2:30 PM EDT TH Visit (TeleHealth) [place] [phone] Dajuan Rachel MD [facility] [place] [address] 07/02/2024 2:00 PM EDT Appointment Non-Invasive [place] [address] Luis Alfredo Velazquez MD [facility] [place] [address] 07/02/2024 4:00 PM EDT Office Visit Cardiology at [place] [phone] Mars Green PA [facility] [place] [address] 07/02/2024 4:40 PM EDT Office Visit Cardiology at [address] [phone] Luis Alfredo Velazquez MD [facility] [place] [address] documented as of this encounter Procedures Procedure [...] CARE TEST O RDERABLES Performing Organization Address [facility] de Phone Number EXTERNAL LAB * (ABNORMAL) Hepatic Function Panel (06/27/2023 2:40 PM EDT) Total Protein 8.2 EXTERNAL LAB Albumin 3.6 EXTERNAL LAB Total Bilirubin 0.3 EXTERNAL LAB Alk Phos 135(H) EXTERNAL LAB AST 23 EXTERNAL LAB ALT 26 EXTERNAL LAB Misc Lab Result <0.1 EXTERNAL LAB Comment:Bilirubin, Conjugate d Blood 06/27/2023 2:40 PM EDT Gabe Fong MD CHEMISTRY ORDERABLES Performing Organization Address [facility] de Phone Number EXTERNAL LAB * (ABNORMAL) CRP, acute inflammation (06/27/2023 2:40 PM EDT) CRP 3.10(H) EXTERNAL LAB Blood 06/27/2023 2:40 PM EDT Gabe Fong MD CHEMISTRY ORDERABLES Performing Organization Address [facility] de Phone Number EXTERNAL LAB * External [...] CARE TEST O RDERABLES Performing Organization Address City/[facility] Co de Phone Number EXTERNAL LAB * Tissue transglutaminase, IgA (06/27/2023 2:40 PM EDT) TTG IgA Ab <1.2 EXTERNAL LAB Blood 06/27/2023 2:40 PM EDT Gabe Fong MD IMMUNOLOGY ORDERABLE S Performing Organization Address [facility] Co de Phone Number EXTERNAL LAB * Mitochondrial Antibody, M2 (06/27/2023 2:40 PM EDT) Mitochon Ab <0.1 EXTERNAL LAB Blood 06/27/2023 2:40 PM EDT Gabe Fong MD IMMUNOLOGY ORDERABLE S Performing Organization Address City/[facility]/ZIP Co de Phone Number EXTERNAL LAB * IgA (06/27/2023 2:40 PM EDT) IgA 496 EXTERNAL LAB Blood 06/27/2023 2:40 PM EDT Gabe Fong MD IMMUNOLOGY ORDERABLE S Performing Organization Address City/[facility]/ZIP Co de Phone Number EXTERNAL LAB * Sedimentation rate (06/27/2023 2:40 PM EDT) Sed Rate 22 EXTERNAL LAB Blood 06/27/2023 2:40 PM EDT Gabe Fong MD HEMATOLOGY ORDERABLE S EXTERNAL LAB documented in this encounter Visit Diagnoses Diagnosis Ankylosing spondylitis of cervical region Ankylosing spondylitis Ulcerative colitis without complications, unspecified location High risk medication use Encounter for long-term (current) use of other medications Primary osteoarthritis of both hips Primary localized osteoarthrosis, pelvic region and thigh 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 Arthralgia of both hands documented in this encounter Care Teams After School Coordinator Relationship Specialty Start Date End Date Marcio Devlin DO [address] [place] [address] PCP - General Family Medicine 11/11/17 documented as of this encounter
--- OUTSIDE RECORDS SUMMARY | 2024-04-16 00:22 | XMS_ITS | Encounter Summary ---
Author Organization [facility] [place] [address] Care Team Providers Care Nanny Caregiver Name Role Phone Marcio Devlin DO Primary Care Provider [phone] Reason for Visit * Auth/Cert (Routine) Specialty Diagnoses / Procedures Referred By Contac t Referred To Contact Diagnoses Ulcerative (chronic) pancolitis with unspecified complications UC surveillance - Rinvoq started 04/2023. PLEASE BOOK FOR SEP 2023 Procedures PRO COLONOSCOPY, DIAGNOSTIC PRO COLONOSCOPY, BIOPSY PRO COLONOSCOPY, REMV LESN, SNARE PRO ANES, LWR INTESTINE, NOS COLONOSCOPY, DIAGNOSTIC (WRVU 3.26) Dajuan Rachel MD [facility] [place] [address] [facility] Referral ID Status Reason Start Date Expiration Date Visits Re quested Visits Authorized [id number] 1 1 Encounter Details Date Type Department Care Team (Latest Contact Info) Description 09/18/2023 1:40 PM EST - 09/18/2023 5:05 PM EST Hospital Encounter [place] [address] Dajuan Rachel MD [facility] [place]OLOGY [place], [place] [phone] Discharge Disposition: Home Social History Tobacco Use [...] occurs, please contact your Doctor. Please call [phone] before 8pm Mon-Fri with problems, questions or concerns. If you call after 8pm or on weekends, call the Hospital at [phone] and ask to speak to the Systems Integration Engineer construction checker and the granulator machine operator will contact that person for you. When should you call for help? Call 503 anytime you think you may need emergency [...] any problems. Where can you learn more? [facility] View your After Visit Summary and more online at [email or web address] If you would like to provide [...] cost to you. Content Version: 12.2 ?? [id number] [employer]. Care instructions adapted under license by [facility]. If you have questions about a medical condition or this instruction, always ask your healthcare professional. [employer] disclaims any warranty or liability for your [...] by mouth daily. SUMAtriptan (IMITREX) 20 mg/actuation [place], Non-Aerosol 1 spray as needed. 11/03/2017 metFORMIN [...] Hepatology Pre-Procedure History and Physical Exam Procedure: [place] Indication: UC restaging and surveillance Patient Active [...] AM EDT Hospital Encounter Non-Invasive Cardiology Lab [place] [phone] Arrived 04/29/2024 9:50 AM EDT Appointment MRI at [address]1000 Luis Alfredo Velazquez MD [facility] [place] [address] 04/29/2024 9:50 AM [place] [address] Luis Alfredo Velazquez MD [facility] [place] [address] 06/07/2024 2:30 PM EDT TH Visit (TeleHealth) Gastroenterology at [place] [phone] Dajuan Rachel MD [facility] [place] [address] 07/02/2024 2:00 PM EDT Appointment Non-Invasive Cardiology Lab [place] [phone] Luis Alfredo Velazquez MD [facility] [place] [address] 07/02/2024 4:00 PM EDT Office Visit Cardiology at [place] [phone] Mars Green PA [facility] [place] [address] 07/02/2024 4:40 PM EDT Office Visit Cardiology at [address] [address] Luis Alfredo Velazquez MD [facility] [place] [address] documented as of this encounter Procedures Procedure Name Priority Date/Time Associated Diagnosis Comments SPECIMEN TO PATHOLOGY Routine 09/18/2023 4:27 PM EST SPECIMEN TO PATHOLOGY Routine 09/18/2023 4:27 PM EST SPECIMEN TO PATHOLOGY Routine 09/18/2023 4:27 PM EST SPECIMEN TO PATHOLOGY Routine 09/18/2023 4:27 PM EST SURGICAL PATHOLOGY REPORT Routine 09/18/2023 4:13 PM EST COLONOSCOPY Routine 09/18/2023 3:57 PM EST Colonoscopy, Biopsy ([id number]) 09/18/2023 3:47 PM EST Ulcerative pancolitis with complication documented in this encounter Results * Specimen to Pathology (09/18/2023 4:27 PM EST) AP Specimen 09/18/2023 4:27 PM EST 09/18/2023 4:27 PM EST Narrative [facility] - 09/18/2023 4:27 PM EST Specimen requisition ordered. ??Separate Pathology report to follow L Jose Rachel MD PATHOLOGY/CYTOLOGY O RDERABLES [facility] [place] [address] * Specimen to Pathology (09/18/2023 4:27 PM EST) AP Specimen 09/18/2023 4:27 PM EST 09/18/2023 4:27 PM EST Narrative [facility] - 09/18/2023 4:27 PM EST Specimen requisition ordered. ??Separate Pathology report to follow L Jose Rachel MD PATHOLOGY/CYTOLOGY O IRMA Performing Organization Address [facility] [place] [address] * Specimen to Pathology (09/18/2023 4:27 PM EST) AP Specimen 09/18/2023 4:27 PM EST 09/18/2023 4:27 PM EST Narrative [facility] - 09/18/2023 4:27 PM EST Specimen requisition ordered. ??Separate Pathology report to follow L Jose Rachel MD PATHOLOGY/CYTOLOGY O IRMA Performing Organization Address [facility] [place] [address] * Specimen to Pathology (09/18/2023 4:27 PM EST) AP Specimen 09/18/2023 4:27 PM EST 09/18/2023 4:27 PM EST Narrative [facility] - 09/18/2023 4:27 PM EST Specimen requisition ordered. ??Separate Pathology report to follow L Jose Rachel MD PATHOLOGY/CYTOLOGY O IRMA Performing Organization Address [facility] [place] [address] * Surgical Pathology Report (09/18/2023 4:13 PM EST) Pathologist [facility] FINAL DIAGNOSIS (AP) [id number] ? Location: 4T; EA11; A The signing [...] MD Verified: ??09/26/2023 15:23 ??Pathologist Performed at: ??-[facility] Dept. of Pathology, [place] [address] Merchandising Representative: Dg Brown MD, AP, ??CLIA Certificate: [id number] SPECIMEN(S) SUBMITTED A - nondirected right colon [...] cassettes labeled D1-D2. ??SM 09/26/2023 3:23 PM EST [facility] GI Biopsy 09/18/2023 4:13 PM EST 09/18/2023 4:13 PM EST GI Biopsy 09/18/2023 4:13 PM EST 09/18/2023 4:13 PM EST GI Biopsy 09/18/2023 4:13 PM EST 09/18/2023 4:13 PM EST GI Biopsy 09/18/2023 4:13 PM EST 09/18/2023 4:13 PM EST L Jose Rachel MD PATHOLOGY/CYTOLOGY O RDERADARLEEN [facility] [place] [address] * COLONOSCOPY (09/18/2023 3:57 PM EST) COLONOSCOPY [facility] Endoscopy ___ Procedure Date: 09/18/2023 3:57 PM ? Patient Name: Kim Funes ? Date of : 1960 ? Age: 63 ? Order #: [id number] ? Instrument Name: [id number] ? ___ Procedure: ? Colonoscopy Indications: ? [...] preparation was evaluated ? using the BBPS ([place] Bowel ? Preparation Scale) with scores of: [...] - Please have labs checked at [facility]. ? - Await pathology results. ? Attending [...] on Lorna 09/18/23 at 1500, Until Lorna 24 at 1656, Endoscopy (Day of Procedure) New Bag 09/18/2023 2:46 PM EST 100 mL/hr 100 mL/hr documented in this encounter Active and Recently Administered Medications Times are shown in EST. Continuous Medication Order 09/16/2023 09/17/2023 09/18/2023 lactated ringers infusion (CANCELED) 100 mL/hr, Intravenous, CONTINUOUS, Starting on Lorna 09/18/23 at 1500, Until Lorna 24 at 1656, Endoscopy (Day of Procedure) 1446 (New Bag - Prov ider: Chuyita Lawson RN) PRN Medication Order 09/16/2023 09/17/2023 09/18/2023 fentaNYL (pf) (50 mcg/mL) multi-dose injection (CANCELED) PRN, Starting on Lorna 24 at 1550, Until Lorna 24 at 1905, Intra-Operative (Intra-Procedure), Routine 1550 (Given - Provid er: Sugar Ruffin RN)1553 (Given - Provider: Sugar Ruffin, RN)1559 (Given - Provider: Sugar Ruffin, RN)1605 (Given - Provider: Sugar Ruffin, RN) midazolam (pf) (Versed) (1 mg/mL) multi-dose injection (CANCELED) PRN, Starting on Lorna 09/18/23 at 1550, Until Lorna 09/18/23 at 1905, Intra-Operative (Intra-Procedure), Routine 1550 (Given - Provid er: Sugar Ruffin RN)1553 (Given - Provider: Sugar Ruffin, RN)1559 (Given - Provider: Sugar Ruffin RN)1605 (Given - Provider: Sugar Ruffin RN) documented in this encounter Care Teams Nanny Caregiver Relationship Specialty Start Date End Date Marcio Devlin DO [address] [place] [address] PCP - General Family Medicine 11/11/17 documented as of this encounter
--- OUTSIDE RECORDS SUMMARY | 2024-04-16 00:22 | XMS_ITS | Encounter Summary ---
Author Organization [facility] [place] [address] Care Team Providers Care Bottom Liquor Attendant Name Role Phone Marcio Devlin DO Primary Care Provider [phone] Encounter Details Date Type Department Care Team [...] AM EDT Hospital Encounter Non-[place] [address] Arrived 04/29/2024 9:50 AM EDT Appointment MRI at [place] [address] Luis Alfredo Velazquez MD [facility] [place] [address] 04/29/2024 9:50 AM EDT [place] [address] Luis Alfredo Velazquez MD [facility] [place] [address] 06/07/2024 2:30 PM EDT TH Visit (TeleHealth) Gastroenterology at [place] [phone] Dajuan Rachel MD [facility] [place] [address] 07/02/2024 2:00 PM EDT Appointment Non-Invasive Cardiology [place] [address] Luis Alfredo Velazquez MD [facility] [place] [address] 07/02/2024 4:00 PM EDT Office [place] [address] Mars Green PA [facility] [place] [address] 07/02/2024 4:40 PM EDT Office Visit Cardiology at [address] [phone] Luis Alfredo Velazquez MD [facility] [place] [address] documented as of this encounter Visit Diagnoses Not on filedocumented in this encounter Care Teams Bottom Liquor Attendant Relationship Specialty Start Date End Date Marcio Devlin DO [address] [place] [address] PCP - General Family Medicine 11/11/17 documented as of this encounter
--- OUTSIDE RECORDS SUMMARY | 2024-04-16 00:22 | XMS_ITS | Encounter Summary ---
Author Organization [facility] [place] [address] Care Team Providers Care Associate Professor Of Art History Name Role Phone Marcio Devlin DO Primary Care Provider [phone] Reason for Visit * Reason Comments Prior Authorization Rinvoq 15 mg TB24 Encounter Details Date Type Department Care Team (Late st Contact Info) Description 09/03/2023 Specialty [place] [address] Dennis Solorzano, [facility] Social History Tobacco Use Types Packs/Day [...] this encounter Progress Notes * Dennis Solorzano, [facility] - 09/03/2023 10:17 AM EST [facility] Special[facility], Medication Prior Authorization Submission Patient: Kim Funes Patient : 1960 Patient Address: [address] [place] [address] (home) Medication Name: RINVOQ 15 MG TABLET,EXTENDED RELEASE Medication ID: [id number] Subscriber Insurance: [employer] ([facility]) Subscriber Insurance Comment: Fax: Physician: NOEL ADEN Physician Comment: Sent Via: Telephone Truong: Ref/Harmeet/YURIY#: [id number] Medication Strength Frequency Requested: Rinvoq 15 mg TB24 Take One Tablet By Mouth Once Daily Qty/Day Supply: New Start: Renewal Diagnosis & ICD-10 Code: Ankylosing Spondylitis M45.2 Patient Notified: No Submission Notes: - Reauthorization Dennis Solorzano CPHT 09/03/23 10:18 AM * Mai Martinez - 09/03/2023 10:17 AM EST [facility] Pharm[facility], Prior Authorization Approval Medication Name: RINVOQ 15 MG TABLET,EXTENDED RELEASE Medication ID: [id number] Approval Dates: 10/08/2023 to 10/07/2024 Insurance requirements/notes: None Other Notes: None Case/Reference #: [id number] Approval notification Received via: Fax Copay: N/A Copay assistance: None Copay Notes: Insurance mandated Pharmacy: [facility] Fillable at [facility] Specialty Pharmacy: No Patient Notified: Left Voicemessage Pharmacy staff will be reaching out to the patient to inform them of their [facility]. If applicable, a pharmacist will speak with the patient to offer our specialty pharmacy services and to arrange delivery of their medication. Mai Martinez 10/08/23 8:54 AM documented in this encounter Plan of Treatment Upcoming Encounters Date Type Department Care Team (Late st Contact Info) Description 04/19/2024 10:00 AM EDT Hospital Encounter Non[place] [address] Arrived 04/29/2024 9:50 AM [place] [phone] Luis Alfredo Velazquez MD [facility] [address] [place] [phone] 04/29/2024 9:50 AM [place] [address] Luis Alfredo Velazquez MD [facility] [place] [address] 06/07/2024 2:30 PM EDT TH Visit (TeleHealth) [place] [address] Dajuan Rachel MD [facility] [place] [address] 07/02/2024 2:00 PM EDT Appointment Non-Invasive Cardiology Lab [address]1000 Luis Alfredo Velazquez MD [facility] [place] [address] 07/02/2024 4:00 PM EDT Office [place] [address] Mars Green PA [facility] [place] [address] 07/02/2024 4:40 PM EDT Office Visit Cardiology at [place] [phone] Luis Alfredo Velazquez MD [facility] [place] [address] documented as of this encounter Visit Diagnoses Not on filedocumented in this encounter Care Teams Associate Professor Of Art History Relationship Specialty Start Date End Date Marcio Devlin DO [address] [place] [address] PCP - General Family Medicine 11/11/17 documented as of this encounter
--- OUTSIDE RECORDS SUMMARY | 2024-04-16 00:22 | XMS_ITS | Encounter Summary ---
Author Organization [place] [address] Care Team Providers Care Shorts Sifter Name Role Phone Marcio Devlin DO Primary Care Provider [phone] Encounter Details Date Type Department Care Team (Latest Contact Info) Description 10/07/2023 10:00 AM EST Office [place] [phone] Gabe Fong MD [facility] [place] [address] High risk medication use; Medication monitoring encounter; [...] however she has been talking with her turn down man about getting in for repeat colonoscopy but [...] AM EDT Hospital Encounter Non-[place] [address] Arrived 04/29/2024 9:50 AM EDT Appointment MRI at [place] [phone] Luis Alfredo Velazquez MD [facility] [place] [address] 04/29/2024 9:50 AM EDT [place] [address]-1000 Luis Alfredo Velazquez MD [facility] [place] [address] 06/07/2024 2:30 PM EDT TH Visit (TeleHealth) Gastroenterology at [place] [phone] Dajuan Rachel MD [facility] [place] [address] 07/02/2024 2:00 PM EDT Appointment Non-[place] [address] Luis Alfredo Velazquez MD [facility] [place] [address] 07/02/2024 4:00 PM EDT Office [place] [address] Mars Green PA [facility] [place] [address] 07/02/2024 4:40 PM EDT Office Visit Cardiology at [place] [phone] Luis Alfredo Velazquez MD [facility] [place] [address] documented as of this encounter Visit Diagnoses [...] unspecified documented in this encounter Care Teams Shorts Sifter Relationship Specialty Start Date End Date Marcio Devlin DO [address] [place] [address] PCP - General Family Medicine 11/11/17 documented as of this encounter
--- OUTSIDE RECORDS SUMMARY | 2024-04-16 00:22 | XMS_ITS | Encounter Summary ---
Author Organization [facility] [place] [address] Care Team Providers Care Community Relations Specialist Name Role Phone Marcio Devlin DO Primary Care Provider [phone] Reason for Visit * Reason Onset Date Comments Prior Authorization 09/02/2023 Encounter Details Date Type Department Care Team (Late st Contact Info) Description 09/02/2023 [place] [address] Alana Recio Prior Authorization Social [...] AM EDT Hospital Encounter Non-Invasive [place] [phone] Arrived 04/29/2024 9:50 [place] [address] Luis Alfredo Velazquez MD [facility] [place] [address] 04/29/2024 9:50 AM [place] [phone] Luis Alfredo Velazquez MD [facility] [place] [address] 06/07/2024 2:30 PM EDT TH Visit (TeleHealth) [place] [address] Dajuan Rachel MD [facility] [place] [address] 07/02/2024 2:00 PM EDT Appointment Non-Invasive Cardiology Lab [address] Luis Alfredo Velazquez MD [facility] [place] [address] 07/02/2024 4:00 PM EDT Office Visit Cardiology at [place] [phone] Mars Green PA [facility] [address] 07/02/2024 4:40 PM EDT Office Visit Cardiology at [place] [phone] Luis Alfredo Velazquez MD [facility] [place] [address] documented as of this encounter Visit Diagnoses Not on filedocumented in this encounter Care Teams Community Relations Specialist Relationship Specialty Start Date End Date Marcio Devlin DO [address] [place] [address] PCP - General Family Medicine 11/11/17 documented as of this encounter
--- OUTSIDE RECORDS SUMMARY | 2024-04-16 00:22 | XMS_ITS | Encounter Summary ---
Author Organization [facility] [place] [address] Care Team Providers Care Reservations Specialist Name Role Phone Marcio Devlin DO Primary Care Provider [phone] Encounter Details Date Type Department Care Team (Late st Contact Info) Description 09/10/2023 Telephone [place] [address] Madison Rushing Social History Tobacco [...] - 09/10/2023 1:40 PM EST Kim Funes [id number] Diagnosis/Indication: UC surveillance - Rinvoq started 04/2023 [...] procedure? No You must have a responsible republican who will drive you to your procedure, stay on campus for the entire duration of your procedure, and drive you home from your procedure. Who will likely be your class c truck driver for the procedure? *Please Verify the height [...] AM EDT Hospital Encounter Non-[place] [phone] Arrived 04/29/2024 9:50 AM EDT Appointment MRI at [address] Luis Alfredo Velazquez MD [facility] [place] [address] 04/29/2024 9:50 AM EDT Appointment MRI at [address]1000 Luis Alfredo Velazquez MD [facility] [place] [address] 06/07/2024 2:30 PM EDT TH Visit (TeleHealth) [place] [address] Dajuan Rachel MD [facility] [address] 07/02/2024 2:00 PM EDT Appointment Non-Invasive Cardiology Lab [place] [phone] Luis Alfredo Velazquez MD [facility] [place] [address] 07/02/2024 4:00 PM EDT Office Visit Cardiology at [address] [phone] Mars Green PA [facility] [place] [address] 07/02/2024 4:40 PM EDT Office Visit Cardiology at [address] [address] Luis Alfredo Velazquez MD [facility] [place] [address] documented as of this encounter Visit Diagnoses Not on filedocumented in this encounter Care Teams Reservations Specialist Relationship Specialty Start Date End Date Marcio Devlin DO [address] [place] [address] PCP - General Family Medicine 11/11/17 documented as of this encounter
--- OUTSIDE RECORDS SUMMARY | 2024-04-16 00:22 | XMS_ITS | Encounter Summary ---
Author Organization [facility] [place] [address] Care Team Providers Care Luggage Liner Name Role Phone Marcio Devlin DO Primary Care Provider [phone] Encounter Details Date Type Department Care Team (Late st Contact Info) Description 10/20/2023 [place] [phone] Nba Rincon MD [facility] [place] [address] Social History Tobacco Use Types Packs/Day Years Used Date Smoking Tobacco: Never Smokeless Tobacco: Never Alcohol Use Standard Drinks/Week Comments Yes 0 (1 standard drink = 0.6 oz pure alcohol) once every couple of months or less [facility] Utilities Answer Date Recorded In the past 12 months has [employer], gas, oil, or water [employer] threatened to shut off services in your [...] slept in a alf (including now)? No 10/21/2023 DH IPV Inpatient [...] from the original note were not included. [facility] [place] [address] 10/20/2023 Kim Funes Initial Contact Date: 10/20/2023 Initial Contact Time: 6:16 AM Referring Provider: Cesar Albert DO Patient Location: [facility] Past Medical History: UC associated [...] Hospital Encounter Non-[place] [address] Arrived 04/29/2024 9:50 AM EDT [place] [address] Luis Alfredo Velazquez MD [facility] [place] [address] 04/29/2024 9:50 AM EDT Appointment MRI at [address]1000 Luis Alfredo Velazquez MD [facility] [place] [address] 06/07/2024 2:30 PM EDT TH Visit (TeleHealth) Gastroenterology at [place] [address] Dajuan Rachel MD [facility] [place] [address] 07/02/2024 2:00 PM EDT Appointment Non-[place] [address] Luis Alfredo Velazquez MD [facility] [place] [address] 07/02/2024 4:00 PM EDT Office [place] [address] Mars Green PA [facility] [place] [address] 07/02/2024 4:40 PM EDT Office Visit Cardiology at [address]1000 Luis Alfredo Velazquez MD [facility] [place] [address] documented as of this encounter Visit Diagnoses Not on filedocumented in this encounter Care Teams Luggage Liner Relationship Specialty Start Date End Date Marcio Devlin DO [address] [place] [address] PCP - General Family Medicine 11/11/17 documented as of this encounter
--- OUTSIDE RECORDS SUMMARY | 2024-04-16 00:22 | XMS_ITS | Encounter Summary ---
Author Organization [place] [address] Care Team Providers Care Byproducts Supervisor Name Role Phone Marcio Devlin DO Primary Care Provider [phone] Reason for Visit * Auth/Cert (Routine) Specialty Diagnoses / Procedures Referred By Contac t Referred To Contact Diagnoses Ulcerative (chronic) pancolitis with unspecified complications UC surveillance - Rinvoq started 04/2023. PLEASE BOOK FOR SEP 2023 Procedures PRO COLONOSCOPY, DIAGNOSTIC PRO COLONOSCOPY, BIOPSY PRO COLONOSCOPY, REMV LESN, SNARE PRO ANES, LWR INTESTINE, NOS COLONOSCOPY, DIAGNOSTIC (WRVU 3.26) Dajuan Rachel MD [facility] [place] [address] [facility] Referral ID Status Reason Start Date Expiration Date Visits Re quested Visits Authorized [id number] 1 1 Encounter Details Date Type Department Care Team (Late st Contact Info) Description 09/18/2023 3:00 PM EST - 09/18/2023 4:00 PM EST [place] [address] Dajuan Rachel MD [facility] GASTROENTEROLOGY [place], [place] [id number] COLONOSCOPY FLEXIBLE, WITH BX (WRVU 3.56) Social [...] occurs, please contact your Doctor. Please call [phone] before 8pm Mon-Fri with problems, questions or concerns. If you call after 8pm or on weekends, call the Hospital at [phone] and ask to speak to the System Technologist condominium association manager and the dough brake machine operator will contact that person for you. When should you call for help? Call [phone] anytime you think you may need emergency [...] any problems. Where can you learn more? [facility] View your After Visit Summary and more online at [email or web address] If you would like to [...] cost to you. Content Version: 12.2 ?? [id number] HelpAround. Care instructions adapted under license by [facility]. If you have questions about a medical condition or this instruction, always ask your healthcare professional. HelpAround disclaims any warranty or liability for your [...] by mouth daily. SUMAtriptan (IMITREX) 20 mg/actuation Noble, Non-Aerosol 1 spray as needed. 11/03/2017 metFORMIN [...] Hepatology Pre-Procedure History and Physical Exam Procedure: [place] Indication: UC restaging and surveillance Patient Active [...] Hospital Encounter Non-Invasive Cardiology Lab [place] [phone] Arrived 04/29/2024 9:50 AM EDT Appointment MRI at [place] [address] Luis Alfredo Velazquez MD [facility] [place] [address] 04/29/2024 9:50 AM EDT Appointment MRI at [address]1000 Luis Alfredo Velazquez MD [facility] [place] [address] 06/07/2024 2:30 PM EDT TH Visit (TeleHealth) Gastroenterology at [place] [address] Dajuan Rachel MD [facility] [place] [address] 07/02/2024 2:00 PM EDT Appointment [place] [address] Luis Alfredo Velazquez MD [facility] [place] [address] 07/02/2024 4:00 PM EDT Office Visit Cardiology at [place] [phone] Mars Green PA [facility] [place] [address] 07/02/2024 4:40 PM EDT Office Visit Cardiology at [address] [address] Luis Alfredo Velazquez MD [facility] [place] [address] documented as of this encounter Procedures Procedure Name Priority Date/Time Associated Diagnosis Comments SPECIMEN TO PATHOLOGY Routine 09/18/2023 4:27 PM EST SPECIMEN TO PATHOLOGY Routine 09/18/2023 4:27 PM EST SPECIMEN TO PATHOLOGY Routine 09/18/2023 4:27 PM EST SPECIMEN TO PATHOLOGY Routine 09/18/2023 4:27 PM EST SURGICAL PATHOLOGY REPORT Routine 09/18/2023 4:13 PM EST COLONOSCOPY Routine 09/18/2023 3:57 PM EST Colonoscopy, Biopsy (20022) 09/18/2023 3:47 PM EST Ulcerative pancolitis with complication documented in this encounter Results * Specimen to Pathology (09/18/2023 4:27 PM EST) AP Specimen 09/18/2023 4:27 PM EST 09/18/2023 4:27 PM EST Narrative [facility] - 09/18/2023 4:27 PM EST Specimen requisition ordered. ??Separate Pathology report to follow Dajuan Rachel MD PATHOLOGY/CYTOLOGY O RDERABLES [facility] [place] [address] * Specimen to Pathology (09/18/2023 4:27 PM EST) AP Specimen 09/18/2023 4:27 PM EST 09/18/2023 4:27 PM EST Narrative [facility] - 09/18/2023 4:27 PM EST Specimen requisition ordered. ??Separate Pathology report to follow L Jose Rachel MD PATHOLOGY/CYTOLOGY O IRMA Performing Organization Address [facility] [place] [address] * Specimen to Pathology (09/18/2023 4:27 PM EST) AP Specimen 09/18/2023 4:27 PM EST 09/18/2023 4:27 PM EST Narrative [facility] - 09/18/2023 4:27 PM EST Specimen requisition ordered. ??Separate Pathology report to follow L Jose Rachel MD PATHOLOGY/CYTOLOGY O IRMA Performing Organization Address [facility] [place] [address] * Specimen to Pathology (09/18/2023 4:27 PM EST) AP Specimen 09/18/2023 4:27 PM EST 09/18/2023 4:27 PM EST Narrative [facility] - 09/18/2023 4:27 PM EST Specimen requisition ordered. ??Separate Pathology report to follow L Jose Rachel MD PATHOLOGY/CYTOLOGY O IRMA Performing Organization Address [facility] [place] [address] * Surgical Pathology Report (09/18/2023 4:13 PM EST) FINAL DIAGNOSIS (AP) [id number] ? Location: 4T; EA11; A The signing [...] MD Verified: ??09/26/2023 15:23 ??Pathologist Performed at: ??-[facility] Dept. of Pathology, [place] [address] Central Office Operator Supervisor: Dg Brown MD, FCAP, ??CLIA Certificate: [id number] SPECIMEN(S) SUBMITTED A - nondirected right colon [...] labeled D1-D2. ??SM 09/26/2023 3:23 PM EST [facility] GI Biopsy 09/18/2023 4:13 PM EST 09/18/2023 4:13 PM EST GI Biopsy 09/18/2023 4:13 PM EST 09/18/2023 4:13 PM EST GI Biopsy 09/18/2023 4:13 PM EST 09/18/2023 4:13 PM EST GI Biopsy 09/18/2023 4:13 PM EST 09/18/2023 4:13 PM EST L Jose Rachel MD PATHOLOGY/CYTOLOGY Clotilde SOLIS [facility] [place] [address] * COLONOSCOPY (09/18/2023 3:57 PM EST) COLONOSCOPY [facility] Endoscopy ___ Procedure Date: 09/18/2023 3:57 PM ? Patient Name: Kim Funes ? N: [id number] ? Date of : 1960 ? Age: 63 ? Order #: [id number] ? Instrument Name: [id number]- [id number] ? ___ Procedure: ? Colonoscopy Indications: ? Disease activity assessment of ? chronic ulcerative pancolitis since ? starting updacitinib (Rinvoq) Patient Profile: ? This is a 63 year old female. This ? patient has ulcerative pancolitis, ? is taking upadacitinib and is ? experiencing mild symptoms. Providers: ? Dajuan. Jose Rachel MD, Sugar Ruffin, ? Juan Kessler [...] preparation was evaluated ? using the BBPS ([place] Bowel ? Preparation Scale) with scores of: [...] ? - Please have labs checked at [facility]. ? - Await pathology results. ? Attending [...] 1446 (New Bag - Prov ider: Chuyita Lawson, FRANCESCA) PRN Medication Order 09/16/2023 09/17/2023 09/18/2023 fentaNYL (pf) (50 mcg/mL) multi-dose injection (CANCELED) PRN, Starting on Lorna 09/18/23 at 1550, Until Lorna 09/18/23 at 1905, Intra-Operative (Intra-Procedure), Routine 1550 (Given - Provid er: Sugar Ruffin RN)1553 (Given - Provider: Sugar Ruffin, FRANCESCA)1559 (Given - Provider: Sugar Ruffin RN)1605 (Given - Provider: Sugar Ruffin RN) midazolam (pf) (Versed) (1 mg/mL) multi-dose injection (CANCELED) PRN, Starting on Lorna 09/18/23 at 1550, Until Lorna 09/18/23 at 1905, Intra-Operative (Intra-Procedure), Routine 1550 (Given - Provid er: Sugar Ruffin RN)1553 (Given - Provider: Sugar Ruffin, FRANCESCA)1559 (Given - Provider: Sugar Ruffin RN)1605 (Given - Provider: Sugar Ruffin RN) documented in this encounter Care Teams Byproducts Supervisor Relationship Specialty Start Date End Date Marcio Devlin DO [address] [place] [address] PCP - General Family Medicine 11/11/17 documented as of this encounter
--- OUTSIDE RECORDS SUMMARY | 2024-04-16 00:22 | XMS_ITS | Encounter Summary ---
Author Organization [facility] [place] [address] Care Team Providers Care Bomb Squad Commander Name Role Phone Marcio Devlin DO Primary Care Provider [phone] Encounter Details Date Type Department Care Team (Late st Contact Info) Description 10/20/2023 External Results [place] [address] Social History Tobacco Use Types Packs/Day Years Used Date Smoking Tobacco: Never Smokeless Tobacco: Never Alcohol Use Standard Drinks/Week Comments Yes 0 (1 standard drink = 0.6 oz pure alcohol) once every couple of months or less [facility] Utilities Answer Date Recorded In the past 12 months has [facility] [employer], gas, oil, or water [employer] threatened to shut off services in your [...] in a mcc (including now)? No 10/21/2023 IPV Inpatient Questions [...] AM EDT Hospital Encounter Non-[place] [address] Arrived 04/29/2024 9:50 AM EDT [place] [address] Luis Alfredo Velazquez MD [facility] [place] [address] 04/29/2024 9:50 AM EDT [place] [address] Luis Alfredo Velazquez MD [facility] [place] [address] 06/07/2024 2:30 PM EDT TH Visit (TeleHealth) Gastroenterology at [place] [phone] Dajuan Rachel MD [facility] [place] [address] 07/02/2024 2:00 PM EDT Appointment Non-Invasive Cardiology Lab [place] [phone] Luis Alfredo Velazquez MD [facility] [place] [address] 07/02/2024 4:00 PM EDT Office Visit Cardiology at [place] [phone] Mars Green PA [facility] [place] [address] 07/02/2024 4:40 PM EDT Office Visit Cardiology at [place] [phone] Luis Alfredo Velazquez MD [facility] [place] [address] documented as of this encounter Procedures Procedure Name Priority Date/Time Associated Diagnosis Comments ECG SCAN Routine 10/20/2023 6:30 AM EST ECG SCAN Routine 10/20/2023 5:52 AM EST documented in this encounter Results * Scan Doc: ECG (10/20/2023 6:30 AM EST) Historical Provider MD LUDY MCKEON SCAN EX T ORDR/RSLT * Scan Doc: ECG (10/20/2023 5:52 AM EST) Historical Provider MD [place] MGR SCAN EX T ORDR/RSLT documented in this encounter Visit Diagnoses Not on filedocumented in this encounter Care Teams Bomb Squad Commander Relationship Specialty Start Date End Date Marcio Devlin DO [address] [place] [address] PCP - General Family Medicine 11/11/17 documented as of this encounter
--- OUTSIDE RECORDS SUMMARY | 2024-04-16 00:22 | XMS_ITS | Encounter Summary ---
[place] [address] Care Team Providers Care Tubing Mill Operator Name Role Phone Marcio Devlin DO Primary Care Provider [phone] Reason for Visit * Auth/Cert (Routine) Specialty Diagnoses / Procedures Referred By Contac t Referred To Contact Diagnoses Complete heart block Bradycardia Procedures EMERGENCY AMARILISI Elle Lin MD [facility] [place] [address] [facility] Referral ID Status Reason Start Date Expiration Date Visits Re quested Visits Authorized [id number] 1 1 Encounter Details Date Type Department Care Team (Late st Contact Info) Description 10/21/2023 1:05 PM EST Anesthesia Event [place] [address] Davonte Raymond MD [facility] [place] [address] Rex Johns CRNA [facility] [place] [address] Anesthesia Record Procedure Summary Procedure Name Responsible [...] once every couple of months or less [facility] Utilities Answer Date Recorded In the past 12 months has [employer], gas, oil, or water [employer] threatened to shut off services in your [...] 10/21/23 Room / Location: EP A-LAB ROOM [address] [place] [address] EP LAB[facility] Anesthesia Start: 1305 Anesthesia Stop: 1513 Procedure: ELECTROPHYSIOLOGY PROCEDURE (Left) Diagnosis: (AFIB) Providers: Dilip Berumen MD Responsible Provider: Davonte Raymond MD Anesthesia Type: MAC ASA Status: 3 All Anesthesia Providers: Anesthesiologist: Dav[place] Raymond MD Business Banking Sales Assistant: Ofleia Manuel MD Vitals Value Taken Time BP [...] disease Colonoscopy 09/19/08 (Dr. Shady Luz at [facility]) for surveillance for dysplasia. Areas [...] WITH BX performed by YAQUELIN ESTRADA at [facility] ENDOSCOPY PRO COLONOSCOPY, BIOPSY N/A 03/04/2017 COLONOSCOPY FLEXIBLE, WITH BX (WRVU 3.66) performed by Raúl Austin MD at [facility] ENDOSCOPY PRO COLONOSCOPY, BIOPSY N/A 11/09/2019 COLONOSCOPY FLEXIBLE, WITH BX (WRVU 3.66) performed by Froilan Sahni MD at [facility] ENDOSCOPY PRO COLONOSCOPY, BIOPSY N/A 12/19/2020 COLONOSCOPY FLEXIBLE, WITH BX (WRVU 3.66) performed by Dajuan Rachel MD at [facility] ENDOSCOPY PRO COLONOSCOPY, BIOPSY N/A 09/24/2022 COLONOSCOPY FLEXIBLE, WITH BX (WRVU 3.66) performed by Dajuan Rachel MD at [facility] ENDOSCOPY PRO COLONOSCOPY, BIOPSY N/A 09/18/2023 COLONOSCOPY FLEXIBLE, WITH BX (WRVU 3.56) performed by Dajuan Rachel MD at [facility] ENDOSCOPY PRO COLONOSCOPY, DIAGNOSTIC N/A 11/09/2019 COLONOSCOPY, DIAGNOSTIC performed by Froilan Sahni MD at [facility] ENDOSCOPY PRO COLONOSCOPY, REMV LESN, SNARE 01/02/2011 COLONOSCOPY, POLYPECTOMY, REMOVAL LESION BY SNARE performed by YAQUELIN ESTRADA at [facility] ENDOSCOPY PRO COLONOSCOPY, REMV LESN, SNARE N/A 03/04/2017 COLONOSCOPY, POLYPECTOMY, REMOVAL LESION BY SNARE (WRVU 4.67) performed by Raúl Austin MD at [facility] ENDOSCOPY PRO COLONOSCOPY, REMV LESN, SNARE N/A 09/24/2022 COLONOSCOPY, POLYPECTOMY, REMOVAL LESION BY SNARE (WRVU 4.67) performed by Dajuan Rachel MD at [facility] ENDOSCOPY PRO COMBINED ANT/POST COLPORRHAPHY W CYSTO N/A 03/10/2018 COLPORRHAPHY ANTERIOR-POSTERIOR; INC CYSTOURETHROSCOPY (WRVU 14.44) performed by Liang Fong MD at [facility] MAIN OR PRO REVAGINAL PROLAPSE, UTEROSACRAL N/A 03/10/2018 COLPOPEXY, VAGINAL, INTRAPERITONEAL APPROACH (WRVU 11.66) [facility] PRO SLING OPER STRES INCONTINENCE N/A 03/10/2018 URETHRAL SUSPENSION, SLING\FASCIA OR SYNTHETIC (WRVU 12.13) performed by Liang Fong MD at [facility] MAIN OR PRO VAG HYST, RMV TUBE/OVARY N/A 03/10/2018 HYSTERECTOMY, VAGINAL, REMOVAL TUBE(S) & OR OVARY(S) (WRVU 15.94) performed by Liang Fong MD at [facility] MAIN OR SALPINGECTOMY XR FLUORO INJECTION DRAINAGE JOINT LG RIGHT Right 03/09/2019 XR Fluoro Guided Joint Injection Large Right 03/09/2019 [facility] RAD XRAY Social History Tobacco Use [...] AM EDT Hospital Encounter Non-Invasive [place] [address] Arrived 04/29/2024 9:50 [place] [address] Luis Alfredo Velazquez MD [facility] [place] [place] [address] 04/29/2024 9:50 [place] [address] Luis Alfredo Velazquez MD [facility] [place] [address] 06/07/2024 2:30 PM EDT TH Visit (TeleHealth) Gastroenterology at [place] [phone] Dajuan Rachel MD [facility] [place] [address] 07/02/2024 2:00 PM EDT Appointment Non-Invasive Cardiology Lab [place] [phone] Luis Alfredo Velazquez MD [facility] [place] [address] 07/02/2024 4:00 PM EDT Office Visit Cardiology at [address] [address] Mars Green PA [facility] [place] [address] 07/02/2024 4:40 PM EDT Office Visit Cardiology at [address] [address] Luis Alfredo Velazquez MD [facility] [place] [address] documented as of this encounter Visit Diagnoses [...] PRN, Starting on Fri10/21/23 at 1442, Until Fri10/21/23 at 1513, Anesthesia Intra-op, Routine [...] PRN, Starting on Fri10/21/23 at 1336, Until Fri10/21/23 at 1513, Anesthesia Intra-op, Routine Given 10/21/2023 1:36 PM EST 1.25 g documented in this encounter Care Teams Tubing Mill Operator Relationship Specialty Start Date End Date Marcio Devlin DO [address] [place], [place] [address] [place] [address] PCP - General Family Medicine 11/11/17 documented as of this encounter
--- OUTSIDE RECORDS SUMMARY | 2024-04-16 00:22 | XMS_ITS | Encounter Summary ---
Author Organization [facility] Address [facility] [place] [address] Care Team Providers Care Customer Operations Specialist Name Role Phone Marcio Devlin DO Primary Care Provider [phone] Reason for Visit * Auth/Cert (Routine) Specialty Diagnoses / Procedures Referred By Contac t Referred To Contact Diagnoses Complete heart block Bradycardia Procedures EMERGENCY AMARILISI Elle Tristan MD [facility] [place] [address] [facility] Referral ID Status Reason Start Date Expiration Date Visits Re quested Visits Authorized [id number] 1 1 Encounter Details Date Type Department Care Team (Late st Contact Info) Description 10/21/2023 1:00 PM EST - 10/21/2023 3:30 PM EST Surgery [place] [address] Dilip Berumen MD [facility] [place] [address] ELECTROPHYSIOLOGY PROCEDURE Social History Tobacco Use Types Packs/Day Years Used Date Smoking Tobacco: Never Smokeless Tobacco: Never Alcohol Use Standard Drinks/Week Comments Yes 0 (1 standard drink = 0.6 oz pure alcohol) once every couple of months or less [facility] Utilities Answer Date Recorded In the [...] a care home (including now)? No 10/21/2023 DH IPV [...] Kim Funes Patient Age: 63 y.o. Language: Algerian Race: White Ethnicity: Not nor Admit date: 10/20/2023 Discharge date and time: 10/22/2023 Attending Physician: Humberto Lynn MD Discharge Physician: Humberto Lynn MD ID: Kim Funes is a 63 y.o. female w/ PMH of ulcerative colitis, ankylosing spondylitis, HTN and HLD who presented to [facility] for symptomatic bradycardia in the setting of [...] spondylitis. PCP Contact Information: Marcio Devlin DO [address] [facility] [address] [place] [address] Pending Studies and Lab Data: none No [...] Colonoscopy 09/19/08 (Dr. Shady Luz at [facility]) for surveillance for dysplasia. Areas of [...] iritis Escalated to weekly Humira 11/2019. ADA (monroe) from 6 q 2wk to 12.7 qwk, as well as BID SSZ Colonoscopy Oct 2019: normal rectum, mod-severe inflammation and narrowing from 6-25 cm from the anus, normal remainder of colon. Path: mild active chronic colitis in ac/tc/dc/sc, severe active colitis with ulceration in proximal rectum Colonoscopy December 2020 - severe involvement of L colon, yjug-el-jjsggadc involvement of transverse and R colon. Worse compared to last exam. SSA at hepatic flexure Adalimumab level (monroe) was 12.7 Switched to Stelara ( 03/21/21, first infusion dose) d/t Lost of response to Humira. Stopped Uceris and sulfasalazine in January 2021. [place] 09/2022 - tubular featureless L colon with [...] , patient went to her PCP at [facility] internal medicine where she was [...] and request was made to transfer to [facility] for ongoing care and possible permanent pacemaker evaluation. Upon interview in the [facility], patient resting comfortably in bed without concern. She states that shehas ongoing fatigue and weakness but denies lightheadedness or dizziness. Hospital Course: Kim Funes was admitted to the Hospital Medicine Service on 10/20/2023. The following issues were addressed and she was discharged on 10/22/2023. #Complete Heart Block w/ Narrow Junctional Escape After admission to the [facility], patient's home beta-rosita was discontinued. After [...] who have questions please contact the health pediatric acute care unit nurse that requested your imaging first. Electronically signed by: Liang Padilla MD, [facility] ([phone]), at 10/22/2023 8:51 AM XR Chest One View (Exam End: 10/21/2023 8:35 PM) Impression No acute pulmonary findings Thank you for letting us participate in the care of this patient. If you are a health care provider and have any questions regarding this report, please contact the number below. For patients who have questions please contact the health pediatric acute care unit nurse that requested your imaging first. Electronically signed by: Liang Padilla MD, [facility] ([phone]), at 10/22/2023 8:45 AM Discharge Conditions/Prognosis: Upon [...] 10 mg Refills: 0 SUMAtriptan 20 mg/actuation Dover, Non-Aerosol Commonly known as: IMITREX 1 spray [...] 10 mg Refills: 0 SUMAtriptan 20 mg/actuation [place], Non-Aerosol Commonly known as: IMITREX 1 spray [...] Time Provider Department Center 11/04/2023 11:00 AM DragRosemarie burr APRN [facility] GASTRO [facility] 01/06/2024 1:00 PM Gabe Fong MD [facility] RHEUM [facility] Your Inpatient Medical Team at [facility] Name(s) of your inpatient provider(s): Humberto Lynn MD Your Primary Care Provider: Marcio Devlin DO [phone] For questions regarding this document or issues relating to this hospitalization on the Medical Service, please contact your inpatient physician through the [facility] Health Care Sanitary Technician . Issues afterhours and on weekends will be handled by the Hospitalist staff on-call. FINAL ICD/PACEMAKER RECOMMENDATIONS: 1. Standard post implant discharge instructions (see below): 2. Medications as listed above. 3. You may use ice packs over the incision. Make sure to use a clothing presser (such as a towel) in between the [...] F. The office scheduling phone number is [phone]. ARM MOVEMENT RESTRICTIONS POST-IMPLANT For 4-6 Weeks: [...] product, please call the device clinic at [phone]. General Instructions None Future Appointments and Orders Future Appointments and Orders Future Appointments Provider Department Dept Phone 11/04/2023 11:00 AM Rosemarie Morrow APRN Gastroenterology at [facility] Arrive at: Home [phone] To view instructions for your video visit, click here, or visit this website: [email or web address] If you have not previously downloaded the [facility] patient portal software, [employer], or the [employer] maria c, please do so by clicking [...] see: How to Disable Pop-Up Block for [facility] Video Visits Zoom asking for a meeting password? - Exit out of the Zoom program and try the link again 11/04/2023 1:00 PM Lorri Mckinney PA Cardiology at [facility] Arrive at: Anesthesiology Tech Area 4A [phone] 01/06/2024 1:00 PM Gabe Fong MD Rheumatology at [facility] Arrive at: Anesthesiology Tech Area 5C [phone] Inpatient Provider Contact Information: Clarence Pearl MD [...] 10 mg Refills: 0 SUMAtriptan 20 mg/actuation Dover, Non-Aerosol Commonly known as: IMITREX 1 spray [...] Center 11/04/2023 11:00 AM Rosemarie Morrow APRN [facility] GASTRO [facility] 01/06/2024 1:00 PM Gabe Fong MD [facility] RHEUM [facility] Your Inpatient Medical Team at [facility] Name(s) of your inpatient provider(s): Humberto Lynn MD Your Primary Care Provider: Marcio Devlin DO [phone] For questions regarding this document or issues relating to this hospitalization on the Medical Service, please contact your inpatient physician through the [facility] Health Care Sanitary Technician . Issues afterhours and on weekends will be handled by the Hospitalist staff on-call. FINAL ICD/PACEMAKER RECOMMENDATIONS: 1. Standard post implant discharge instructions (see below): 2. Medications as listed above. 3. You may use ice packs over the incision. Make sure to use a clothing presser (such as a towel) in between the [...] F. The office scheduling phone number is [phone]. ARM MOVEMENT RESTRICTIONS POST-IMPLANT For 4-6 Weeks: [...] product, please call the device clinic at [phone]. documented in this encounter Medications at Time [...] by mouth daily. SUMAtriptan (IMITREX) 20 mg/actuation Dover, Non-Aerosol 1 spray as needed. 11/03/2017 metFORMIN [...] CARLOS ARIAS MD 10/21/2023 * Ruben, Glenn Cuevas MD - 10/21/2023 7:01 AM EST Images from the original note were not included. Cardiology ICU Progress Note Patient info: Name: Kim Funes : 1960 PCP: Marcio Devlin DO PCP phone number: [phone] Date of Admission: 10/20/2023 ( Hospital Day [...] 93.8 91.7 Recent Labs 10/21/23 0755 10/21/23 0610/20/23 1340 NA 143 -- 145 CL 111* [...] in the last 7068 hours. Invalid input(s): [id number] Recent Labs 10/21/23 0754 10/20/23 2106 10/20/23 [...] service for ongoing care. Glenn Miranda MD, [facility] Staff Automatic Spinning Lathe Setter * Elle Tristan MD - 10/20/2023 1:46 [...] MD PCP: Marcio Devlin DO ID: Kim Funes is a 63 y.o. female w/ PMH of ulcerative colitis, ankylosing spondylitis, HTN, prediabetes and HLD here for evaluation of lightheadedness and shortness of breath, found to be in complete heart block s/p pacemaker placement 10/21/23. History of Present Illness: Per [facility] H&P This patient presented to the emergency [...] , patient went to her PCP at [facility] internal medicine where she was [...] and request was made to transfer to [facility] for ongoing care and possible permanent pacemaker evaluation. Upon interview in the [facility], patient resting comfortably in bed without concern. She states that shehas ongoing fatigue and weakness but denies lightheadedness or dizziness. Hospital Course to date After admission to the [facility], patient's home beta-rosita was discontinued. After [...] Colonoscopy 09/19/08 (Dr. Shady Luz at [facility]) for surveillance for dysplasia. Areas of [...] iritis Escalated to weekly Humira 11/2019. ADA (monroe) from 6 q 2wk to 12.7 qwk, as well as BID SSZ Colonoscopy Oct 2019: normal rectum, mod-severe inflammation and narrowing from 6-25 cm from the anus, normal remainder of colon. Path: mild active chronic colitis in ac/tc/dc/sc, severe active colitis with ulceration in proximal rectum Colonoscopy December 2020 - severe involvement of L colon, ydrg-bw-pxsddbgu involvement of transverse and R colon. Worse compared to last exam. SSA at hepatic flexure Adalimumab level (monroe) was 12.7 Switched to Stelara ( 03/21/21, first infusion dose) d/t Lost of response to Humira. Stopped Uceris and sulfasalazine in January 2021. [place] 09/2022 - tubular featureless L colon with [...] in the last 7068 hours. Invalid input(s): [id number] Heme: No results for input(s): LDH, HAPTOGLOBIN, [...] PCP: Marcio Devlin DO PCP phone number: [phone] Date of Admission: 10/20/2023 ( Hospital Day [...] , patient went to her PCP at [facility] internal medicine where she was [...] and request was made to transfer to [facility] for ongoing care and possible permanent [...] Colonoscopy 09/19/08 (Dr. Shady Luz at [facility]) for surveillance for dysplasia. Areas of [...] [facility] ENDOSCOPY PRO COLONOSCOPY, BIOPSY N/A 03/04/2017 COLONOSCOPY FLEXIBLE, WITH BX (WRVU 3.66) performed by Raúl Austin MD at [facility] ENDOSCOPY PRO COLONOSCOPY, BIOPSY N/A 11/09/2019 COLONOSCOPY FLEXIBLE, WITH BX (WRVU 3.66) performed by Froilan Sahni MD at [facility] ENDOSCOPY PRO COLONOSCOPY, BIOPSY N/A 12/19/2020 COLONOSCOPY FLEXIBLE, WITH BX (WRVU 3.66) performed by Dajuan Rachel MD at [facility] ENDOSCOPY PRO COLONOSCOPY, BIOPSY N/A 09/24/2022 COLONOSCOPY FLEXIBLE, WITH BX (WRVU 3.66) performed by Dajuan Rachel MD at [facility] ENDOSCOPY PRO COLONOSCOPY, BIOPSY N/A 09/18/2023 COLONOSCOPY FLEXIBLE, WITH BX (WRVU 3.56) performed by Dajuan Rachel MD at [facility] ENDOSCOPY PRO COLONOSCOPY, DIAGNOSTIC N/A 11/09/2019 COLONOSCOPY, DIAGNOSTIC performed by Froilan Sahni MD at [facility] ENDOSCOPY PRO COLONOSCOPY, REMV LESN, SNARE 01/02/2011 COLONOSCOPY, POLYPECTOMY, REMOVAL LESION BY SNARE performed by YAQUELIN ESTRADA at [facility] ENDOSCOPY PRO COLONOSCOPY, REMV LESN, SNARE N/A 03/04/2017 COLONOSCOPY, POLYPECTOMY, REMOVAL LESION BY SNARE (WRVU 4.67) performed by Raúl Austin MD at [facility] ENDOSCOPY PRO COLONOSCOPY, REMV LESN, SNARE N/A 09/24/2022 COLONOSCOPY, POLYPECTOMY, REMOVAL LESION BY SNARE (WRVU 4.67) performed by Dajuan Rachel MD at [facility] ENDOSCOPY PRO COMBINED ANT/POST COLPORRHAPHY W CYSTO N/A 03/10/2018 COLPORRHAPHY ANTERIOR-POSTERIOR; INC CYSTOURETHROSCOPY (WRVU 14.44) performed by Liang Fong MD at [facility] MAIN OR PRO REVAGINAL PROLAPSE, UTEROSACRAL N/A 03/10/2018 COLPOPEXY, VAGINAL, INTRAPERITONEAL APPROACH (WRVU 11.66) performed by Liang Fong [facility] PRO SLING OPER STRES INCONTINENCE N/A 03/10/2018 URETHRAL SUSPENSION, SLING\FASCIA OR SYNTHETIC (WRVU 12.13) performed by Liang Fong MD at [facility] MAIN OR PRO VAG HYST, RMV TUBE/OVARY N/A 03/10/2018 HYSTERECTOMY, VAGINAL, REMOVAL TUBE(S) & OR OVARY(S) (WRVU 15.94) performed by Liang Fong MD at [facility] MAIN OR SALPINGECTOMY XR FLUORO INJECTION DRAINAGE JOINT LG RIGHT Right 03/09/2019 XR Fluoro Guided Joint Injection Large Right 03/09/2019 [facility] RAD XRAY Family History Family History Problem [...] Blood Gas) No results for input(s): PHART, FLJ1IXL, PO2ART, GDF9PSB, LACTATEVEN, ZNU1XPH, PFRATIOART2 in the last 168 hours. VBG (Venous Blood Gas) No results for input(s): PHVEN, XUA0BQI, PO2VEN, KUO9XSF, LACTATEVEN in the last 168 hours. Mixed Venous Sat No results for input(s): E2CHUG9 in the last 168 hours. Intake/Output Summary [...] in the last 68 hours. Invalid input(s): RIQGUALTUQH8R No results for input(s): POCGLU in the last 168 hours. Heme No results for input(s): LDH, HAPTOGLOBIN, URICACID in the last 168 hours. ABG (Arterial Blood Gas) No results for input(s): PHART, TUB7BGO, PO2ART, OGH6TQB, LACTATEVEN, QIO2VEU, PFRATIOART2 in the last 168 hours. VBG (Venous Blood Gas) No results for input(s): PHVEN, LOD8UEK, PO2VEN, SPF8SWW, LACTATEVEN in the last 168 hours. Mixed Venous Sat No results for input(s): W2QQNT3 in the last 168 hours. Microbiology: Microbiology [...] Jean Roca, DO Internal Medicine, PGY-1 Cardiology, [facility] 10/20/23 2:14 PM * Jason Castro MD - 10/20/2023 10:39 AM EST Inpatient Cardiac Electrophysiology- Initial Consultation Date of Consultation: 10/20/2023 Admit Date: 10/20/2023 Patient Location: [facility] Attending Automatic Spinning Lathe Setter: iRley Reason for Consult: Complete Heart Block Active [...] by mouth daily. SUMAtriptan (IMITREX) 20 mg/actuation Dover, Non-Aerosol 1 spray as needed. 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 Gera Martell MD Cardiac Electrophysiology Fellow [facility] Pager [phone] 10/20/2023 I met with the patient today [...] above plan. Dr. 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 Current Living Arrangements: home/apartment/condo. Accessibility Concerns:house 1 floor with 3 LISS. Current Functional Ability: Independent, Assistive Person DME used at home: none DME Needed at Discharge: none Patient is insured through: Primary Insurance: [employer] Payor: [facility] / Plan: [facility] PPO / Product Type: *No Product type* / Secondary Insurance: N/A Prescription Coverage: Yes This plan was formulated with input from patient and team. All are in agreement with plan. GHADA Shah, RN Inpatient Janitorial Services Supervisor- Cardiology Office of Care Management Pager #: [phone] * Consult Note - Chepe Russo MD - 10/22/2023 8:00 AM EST Images from the original note were not included. [facility] MARIA ALEJANDRA Harvey [phone] CARDIAC ELECTROPHYSIOLOGY CONSULT NOTE Patient: Kim Funes [...] Colonoscopy 09/19/08 (Dr. Shady Luz at [facility]) for surveillance for dysplasia. Areas of [...] 2020 - severe involvement of L colon, hqsa-be-biflanak involvement of transverse and R colon. Worse compared to last exam. SSA at hepatic flexure Adalimumab level (monroe) was 12.7 Switched to Stelara ( 03/21/21, first infusion dose) d/t Lost of response to Humira. Stopped Uceris and sulfasalazine in January 2021. [place] 09/2022 - tubular featureless L colon with [...] She underwent placement of a left sided [employer] dual chamber pacemaker on 10/21/23. Procedure [...] expected position. No pneumothorax. Diagnostics Presenting EGMs: -FRAME OPERATOR Underlying Rhythm: CHB with narrow junctional escape in the 30's Atrial Episodes: None Ventricular Episodes: None Atrial Pacing: <1% Ventricular Pacin% Lead and Generator Data Clean Up Supervisor Model # Serial # Generator [employer] [id number] Atrial Lead [employer] [id number] Ventricular Lead [employer] [id number] Pace / Sense Data Sensed wave (mV) [...] She underwent placement of a left sided [employer] dual chamber pacemaker on 10/21/23. Device is functioning well and CXR unremarkable. Recommendations: - Pocket incision is well healed without signs or symptoms of infection - Device is functioning appropriately - Patient will have 10 day follow up here and will then follow up at [facility] Case was discussed with Dr. Berumen who agrees with recommendations as documented above. EP Consult service will continue to follow patient. x Recommendations are above, please page if further consultation required. Chepe Russo Insurance Agency Sales Manager [phone] Associated attestation - Dilip Berumen MD - 10/22/2023 11:33 AM EST Post-op day # 1 s/p dual-chamber pacemaker for symptomatic complete heart block . Patient feels much, much better. Post implant interrogation - excellent RA and RV parameters. CXR- good and stable lead positions, no sign of PTX. OK to discharge patient from EP standpoint. Will arrange ~[facility]wound [facility] and ~ 91 day check at [facility]. Dilip Berumen MD, PhD, [facility] Cardiac Electrophysiology 10/22/2023 11:32 AM * Initial [...] Colonoscopy 09/19/08 (Dr. Shady Luz at [facility]) for surveillance for dysplasia. Areas of [...] surrogate would be surrogate decision maker per [place] surrogate decision making law. (Only good for 180 days) Any patient receiving care in [place] must abide by [place] law. The hierarchy for surrogate decision making [...] (i) The agent with financial power of trademark attorney or a conservator appointed in accordance with RSA 464-A. (j) The guardian of the patient???s estate. 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) Prior [...] has the electric, gas, oil, or water [employer] threatened to shut off services in your [...] Current DME: none Home Address confirmed as: [address] [place] [phone] Social & Family Supports: All names listed below confirmed with patient as current and correct Extended Emergency Contact Information Primary Emergency Contact: Lucien Funes Address: [address] [place] [phone] [facility] Mobile Relation: Spouse Secondary [...] points: Addiction likely Health/Prescription Coverage: Primary Insurance: [employer] Payor: [employer] / Plan: [facility] PPO / Product Type: *No Product type* / Secondary Insurance: N/A ; Prescription Coverage: Yes Preferred Pharmacy: [id number] - [place], [place] - [address] [facility] [address] [place] [id number] [address] Status: Patient is a : No Primary Care Provider confirmed: Marcio Devlin DO [phone] Patient/Caregiver Goals of Treatment: return home with [...] AM EDT Hospital Encounter Non[place] [address] Arrived 04/29/2024 9:50 AM EDT Appointment MRI at [place] [address] Luis Alfredo Velazquez MD [facility] [place] [address] 04/29/2024 9:50 AM EDT Appointment MRI at [place] [phone] Luis Alfredo Velazquez MD [facility] [place] [address] 06/07/2024 2:30 PM EDT TH Visit (TeleHealth) Gastroenterology at [address] Dajuan Rachel MD [facility] [place] [address] 07/02/2024 2:00 PM EDT Appointment Non-[place] [phone] Luis Alfredo Velazquez MD [facility] [place] [address] 07/02/2024 4:00 PM EDT Office Visit Cardiology at [address] [phone] [place] [facility] [place] [address] 07/02/2024 4:40 PM EDT Office Visit Cardiology at [address] [phone] Luis Alfredo Velazquez MD [facility] [place] [place] [address] documented as of this encounter Procedures Procedure [...] who have questions please contact the health pediatric acute care unit nurse that requested your imaging first. ? Electronically signed by: Liang Padilla MD, [facility] ??([phone]), at 10/22/2023 8:51 AM Narrative 10/22/2023 8:51 [...] patients who have questions please contactthe health pediatric acute care unit nurse that requested your imaging first. Electronically signed by: Liang Padilla MD, [facility]([phone]), at 10/22/2023 8:51 AM Dilip Berumen MD IMG DX ORDERABLES * (ABNORMAL) Differential, Automated (10/22/2023 2:41 AM EST) Neutrophils % 71.9 % [facility] Neutr Abs (ANC) 6.59(H) 1.70 - 6.10 x10(3)/[facility] Lymphocytes % 19.1 % [facility] Lymphocytes Abs 1.8 0.9 - 3.2 x10(3)/[facility] LABOR[facility]ORY Monocytes % 7.9 % [facility] Monocyte Abs 0.7 0.3 - 0.9 x10(3)/[facility] LABORATORY Eosinophils % 0.7 % [facility] Eosinophils Abs 0.1 0.0 - 0.4 x10(3)/[facility] Basophils % 0.2 % [facility] Basophils Abs 0.0 0.0 - 0.1 x10(3)/[facility] LABORATORY Immature Gran % 0.20 % [facility] Comment: Immature granulocytes(IG's)percentage and absolute count will include metamyelocytes, myelocytes, and promyelocytes. Blood smears from CBCs yielding IG's will be scanned manually for concordance. If this scan disagrees with the automated IG or if promyelocytes are noted, a manual differential will be performed. Melanie Gran Abs 0.02 0.00 - 0.04 x10(3)/[facility] LABORATORY Blood 10/22/2023 2:41 AM EST 10/22/2023 2:41 AM EST Narrative Resulting Agency Comment Spec In Lab Clifton Segundo MD HEMATOLOGY ORDERABLE S [facility] [place] [address] * (ABNORMAL) Hemogram (10/22/2023 2:41 AM EST) WBC 9.2 4.0 - 9.5 x10(3)/[facility] LABORATORY RBC 4.11 4.00 - 5.21 x10(6)/[facility] LABORATORY Hemoglobin 12.9 11.7 - 15.5 g/dL [facility] Hematocrit 38.4 35.7 - 45.8 % [facility] MCV 93.4 82.6 - 94.4 fL [facility] MCH 31.4 27.1 - 32.0 pg [facility] MCHC 33.6 31.7 - 35.0 g/dL [facility] Platelets 190 145 - 357 x10(3)/[facility] LABORATORY RDWSD 48.7(H) 37.0 - 46.0 [facility] LABORATORY RDWCV 14.1 11.5 - 14.1 % [facility] MPV 10.5 7.6 - 12.9 [facility] LABORATORY nRBC % Auto 0.0 % [facility] LAB[facility] nRBC Abs Auto 0.000 0.000 - 0.000 x10(3)/[facility] LABORATORY Blood 10/22/2023 2:41 AM EST 10/22/2023 2:41 AM EST Narrative Resulting Agency Comment Spec In Lab Clifton Segundo MD HEMATOLOGY ORDERABLE S Performing Organization Address City/[facility]/ZIP Co de Phone Number [facility] [place] [address] * (ABNORMAL) Basic Metabolic Panel (non-fasting) (10/22/2023 2:41 AM EST) Glucose Lvl 115 65 - 199 mg/dL [facility] Comment:Diabetes: >=200 mg/d L plus symptoms BUN 21(H) 8 - 18 mg/dL [facility] Creatinine 1.12 0.70 - 1.20 mg/dL [facility] Sodium 142 135 - 145 mmol/L [facility] Potassium 3.8 3.5 - 5.0 mmol/L [facility] Comment: Please note: ??Patients with WBC >100,000 may have falsely elevated Potassium levels. ??For accurate Potassium quantification in these patients send serum separator tube (gold top) for subsequent determinations. ??Contact the Clinical Chemistry Laboratory if there are any questions. Chloride 107 98 - 107 mmol/L [facility] CO2 23 22 - 31 mmol/L [facility] Anion Gap 12 5 - 15 mmol/L [facility] Calcium 9.1 8.5 - 10.5 mg/dL [facility] Estimated GFR 56(L) >=60 mL/min/1. 73 m?? [facility] Comment: This patient's estimated [...] In Lab Glenn Miranda MD CHEMISTRY ORDERABLES [facility] [place] [address] * Phosphorus (10/22/2023 2:41 AM EST) Phosphorus 4.3 2.5 - 4.5 mg/dL [facility] Blood 10/22/2023 2:41 AM EST 10/22/2023 2:41 AM EST Narrative Resulting Agency Comment Spec In Lab Glenn Miranda MD CHEMISTRY ORDERABLES Performing Organization Address [facility] de Phone Number [facility] [place] [address] * (ABNORMAL) Magnesium (10/22/2023 2:41 AM EST) Magnesium 0.66(L) 0.69 - 1.07 mmol/L [facility] Blood 10/22/2023 2:41 AM EST 10/22/2023 2:41 AM EST Narrative Resulting Agency Comment Spec In Lab Glenn Miranda MD CHEMISTRY ORDERABLES Performing Organization Address [facility] de Phone Number [facility] [place] [address] * POCT Glucose (10/21/2023 9:43 PM EST) Pathologist [facility] POC Glucose 131 65 - 199 mg/dL [facility] Comment: Supplemental ranges: <140 mg/dL before meals <180 mg/dL all other times of the day Blood 10/21/2023 9:43 PM EST 10/21/2023 9:43 PM EST Humberto Lynn MD POINT OF CARE TEST ORDERABLES Performing Organization Address [facility] Phone Number [facility] [place] [address] * XR Chest One View (10/21/2023 8:35 [...] who have questions please contact the health pediatric acute care unit nurse that requested your imaging first. ? Electronically signed by: Liang Padilla MD, [facility] ??([phone]), at 10/22/2023 8:45 AM Narrative 10/22/2023 8:45 [...] pleural effusion or pneumothorax. Procedure Note Liang Padilal MD - 10/22/2023 EXAMINATION: XR CHEST ONE [...] patients who have questions please contactthe health pediatric acute care unit nurse that requested your imaging first. Electronically signed by: Liang Padilla MD, [facility]([phone]), at 10/22/2023 8:45 AM Humberto Lynn MD IMG DX ORDERABLES * POCT Glucose (10/21/2023 3:33 PM EST) POC Glucose 75 65 - 199 mg/dL [facility] Comment: Supplemental ranges: <140 mg/dL before meals <180 mg/dL all other times of the day Blood 10/21/2023 3:33 PM EST 10/21/2023 3:33 PM EST Glenn Miranda MD POINT OF CARE TEST O RDERABLES [facility] [place] [address] * ELECTROPHYSIOLOGY PROCEDURE (10/21/2023 3:04 PM EST) Anatomical Region Laterality Modality Other Narrative 10/24/2023 12:54 PM EST Table formatting from the original result was not included. Images from the original result were not included. Tape Cutter: Dilip Berumen MD Fellow: Gera Martell MD [...] the entire procedure. Lead and Generator Data Clean Up Supervisor Model # Serial # Generator [place] [employer] [id number] Atrial Lead [employer] [id number] Ventricular Lead [employer] [id number] Pace / Sense Data Sensed wave (mV) [...] of this procedure. Dilip Berumen MD, PhD, [facility] Cardiac Electrophysiology Dilip Berumen MD EP PROCEDURE ORDERAB LES * POCT Glucose (10/21/2023 11:31 AM EST) POC Glucose 104 65 - 199 mg/dL [facility] Comment: Supplemental ranges: <140 mg/dL before meals <180 mg/dL all other times of the day Blood 10/21/2023 11:3 1 AM EST 10/21/2023 11:31 AM EST Glenn Miranda MD POINT OF CARE TEST O RDERABLES [facility] [place] [address] * (ABNORMAL) Basic Metabolic Panel (non-fasting) (10/21/2023 7:55 AM EST) Glucose Lvl 114 65 - 199 mg/dL [facility] Comment:Diabetes: >=200 mg/d L plus symptoms BUN 23(H) 8 - 18 mg/dL [facility] Creatinine 1.18 0.70 - 1.20 mg/dL [facility] Sodium 143 135 - 145 mmol/L [facility] Potassium 4.2 3.5 - 5.0 mmol/L [facility] Comment: Please note: ??Patients with WBC >100,000 may have falsely elevated Potassium levels. ??For accurate Potassium quantification in these patients send serum separator tube (gold top) for subsequent determinations. ??Contact the Clinical Chemistry Laboratory if there are any questions. Chloride 111(H) 98 - 107 mmol/L [facility] CO2 21(L) 22 - 31 mmol/L [facility] Anion Gap 11 5 - 15 mmol/L [facility] Calcium 10.1 8.5 - 10.5 mg/dL [facility] Estimated GFR 52(L) >=60 mL/min/1. 73 m?? [facility] Comment: This patient's estimated [...] Miranda MD CHEMISTRY ORDERABLES Performing Organization Address City/[facility]/ZIP Co de Phone Number [facility] [place] [address] * POCT Glucose (10/21/2023 7:54 AM EST) POC Glucose 107 65 - 199 mg/dL [facility] Comment: Supplemental ranges: <140 mg/dL before meals <180 mg/dL all other times of the day Blood 10/21/2023 7:54 AM EST 10/21/2023 7:54 AM EST Glenn Miranda MD POINT OF CARE TEST O RDERABLES Performing Organization Address City/[facility]/ZIP Co de Phone Number [facility] [place] [address] * Differential, Automated (10/21/2023 6:04 AM EST) Neutrophils % 56.2 % [facility] Neutr Abs (ANC) 3.81 1.70 - 6.10 x10(3)/[facility] LABORATORY Lymphocytes % 33.4 % [facility] Lymphocytes Abs 2.3 0.9 - 3.2 x10(3)/[facility] LABORATORY Monocytes % 9.0 % [facility] Monocyte Abs 0.6 0.3 - 0.9 x10(3)/[facility] LABORATORY Eosinophils % 0.9 % [facility] Eosinophils Abs 0.1 0.0 - 0.4 x10(3)/[facility] LABORATORY Basophils % 0.4 % [facility] Basophils Abs 0.0 0.0 - 0.1 x10(3)/[facility] LABORATORY Immature Gran % 0.10 % [facility] Comment: Immature granulocytes(IG's)percentage and absolute count will include metamyelocytes, myelocytes, and promyelocytes. Blood smears from CBCs yielding IG's will be scanned manually for concordance. If this scan disagrees with the automated IG or if promyelocytes are noted, a manual differential will be performed. Melanie Gran Abs 0.01 0.00 - 0.04 x10(3)/[facility] LABORATORY Blood 10/21/2023 6:04 AM EST 10/21/2023 6:21 AM EST Narrative Resulting Agency Comment Spec In Lab Clifton Segundo MD HEMATOLOGY ORDERABLE S [facility] [place] [address] * (ABNORMAL) Hemogram (10/21/2023 6:04 AM EST) WBC 6.8 4.0 - 9.5 x10(3)/[facility] LABORATORY RBC 4.06 4.00 - 5.21 x10(6)/[facility] LABORATORY Hemoglobin 12.6 11.7 - 15.5 g/dL [facility] Hematocrit 38.1 35.7 - 45.8 % [facility] MCV 93.8 82.6 - 94.4 [facility] LABORATORY MCH 31.0 27.1 - 32.0 pg [facility] MCHC 33.1 31.7 - 35.0 g/dL [facility] Platelets 211 145 - 357 x10(3)/[facility] LABORATORY RDWSD 50.4(H) 37.0 - 46.0 fL [facility] RDWCV 14.5(H) 11.5 - 14.1 % [facility] MPV 10.9 7.6 - 12.9 [facility] LABORATORY nRBC % Auto 0.0 % [facility] nRBC Abs Auto 0.000 0.000 - 0.000 x10(3)/[facility] LABORATORY Blood 10/21/2023 6:04 AM EST 10/21/2023 6:21 AM EST Narrative Resulting Agency Comment Spec In Lab Clifton Segundo MD HEMATOLOGY ORDERABLE S Performing Organization Address City/[facility]/ZIP Co de Phone Number [facility] [place] [address] * Phosphorus (10/21/2023 6:04 AM EST) Phosphorus 4.5 2.5 - 4.5 mg/dL [facility] Comment:result rechecked-EL Blood 10/21/2023 6:04 AM EST 10/21/2023 6:21 AM EST Narrative Resulting Agency Comment Spec In Lab Glenn Miranda MD CHEMISTRY ORDERABLES Performing Organization Address City/[facility]/ZIP Co de Phone Number [facility] [place] [address] * Magnesium (10/21/2023 6:04 AM EST) Magnesium 0.70 0.69 - 1.07 mmol/L [facility] Blood 10/21/2023 6:04 AM EST 10/21/2023 6:21 AM EST Narrative Resulting Agency Comment Spec In Lab Glenn Miranda MD CHEMISTRY ORDERABLES Performing Organization Address [facility]/ZIP Co de Phone Number [facility] [place] [address] * POCT Glucose (10/20/2023 9:06 PM EST) [facility] POC Glucose 116 65 - 199 mg/dL [facility] Comment: Supplemental ranges: <140 mg/dL before meals <180 mg/dL all other times of the day Blood 10/20/2023 9:06 PM EST 10/20/2023 9:06 PM EST Elle Tristan MD POINT OF CARE T EST ORDERABLES Performing Organization Address [facility] Co de Phone Number [facility] [place] [address] * POCT Glucose (10/20/2023 4:50 PM EST) [facility] POC Glucose 94 65 - 199 mg/dL [facility] Comment: Supplemental ranges: <140 mg/dL before meals <180 mg/dL all other times of the day Blood 10/20/2023 4:50 PM EST 10/20/2023 4:50 PM EST Elle Tristan MD POINT OF CARE T EST ORDERABLES Performing Organization Address [facility] Co de Phone Number [facility] [place] [address] * Differential, Automated (10/20/2023 1:40 PM EST) Neutrophils % 42.4 % [facility] Neutr Abs (ANC) 2.79 1.70 - 6.10 x10(3)/[facility] LABORATORY Lymphocytes % 48.1 % [facility] Lymphocytes Abs 3.2 0.9 - 3.2 x10(3)/[facility] LABORATORY Monocytes % 8.2 % [facility] Monocyte Abs 0.5 0.3 - 0.9 x10(3)/[facility] LABORATORY Eosinophils % 0.8 % [facility] Eosinophils Abs 0.0 0.0 - 0.4 x10(3)/[facility] LABORATORY Basophils % 0.3 % [facility] Basophils Abs 0.0 0.0 - 0.1 x10(3)/[facility] LABORATORY Immature Gran % 0.20 % [facility] Comment: Immature granulocytes(IG's)percentage and absolute count will include metamyelocytes, myelocytes, and promyelocytes. Blood smears from CBCs yielding IG's will be scanned manually for concordance. If this scan disagrees with the automated IG or if promyelocytes are noted, a manual differential will be performed. Melanie Gran Abs 0.01 0.00 - 0.04 x10(3)/[facility] LABORATORY Blood 10/20/2023 1:40 PM EST 10/20/2023 1:57 PM EST Narrative Resulting Agency Comment Spec In Lab Clifton Segundo MD HEMATOLOGY ORDERABLE S [facility] [place] [address] * (ABNORMAL) Hemogram (10/20/2023 1:40 PM EST) WBC 6.6 4.0 - 9.5 x10(3)/[facility] LABORATORY RBC 4.08 4.00 - 5.21 x10(6)/[facility] LABORATORY Hemoglobin 12.6 11.7 - 15.5 g/dL [facility] Hematocrit 37.4 35.7 - 45.8 % [facility] MCV 91.7 82.6 - 94.4 fL [facility] MCH 30.9 27.1 - 32.0 pg [facility] MCHC 33.7 31.7 - 35.0 g/dL [facility] Platelets 228 145 - 357 x10(3)/[facility] LABORATORY RDWSD 48.5(H) 37.0 - 46.0 fL [facility] RDWCV 14.3(H) 11.5 - 14.1 % [facility] MPV 10.9 7.6 - 12.9 fL [facility] nRBC % Auto 0.0 % [facility] nRBC Abs Auto 0.000 0.000 - 0.000 x10(3)/[facility] LABORATORY Blood 10/20/2023 1:40 PM EST 10/20/2023 1:57 PM EST Narrative Resulting Agency Comment Spec In Lab Clifton Segundo MD HEMATOLOGY ORDERABLE S [facility] [place] [address] * (ABNORMAL) Phosphorus (10/20/2023 1:40 PM EST) Phosphorus 1.6(L) 2.5 - 4.5 mg/dL [facility] Blood 10/20/2023 1:40 PM EST 10/20/2023 1:57 PM EST Narrative Resulting Agency Comment Spec In Lab Elle Tristan MD CHEMISTRY ORDER EDUAR [facility] [place] [address] * Magnesium (10/20/2023 1:40 PM EST) Magnesium 0.71 0.69 - 1.07 mmol/L [facility] Blood 10/20/2023 1:40 PM EST 10/20/2023 1:57 PM EST Narrative Resulting Agency Comment Spec In Lab Elle Tristan MD CHEMISTRY ORDER EDUAR [facility] [place] [address] * (ABNORMAL) Basic Metabolic Panel (non-fasting) (10/20/2023 1:40 PM EST) Glucose Lvl 92 65 - 199 mg/dL [facility] Comment:Diabetes: >=200 mg/d L plus symptoms BUN 23(H) 8 - 18 mg/dL [facility] Creatinine 1.04 0.70 - 1.20 mg/dL [facility] Sodium 145 135 - 145 mmol/L [facility] Potassium 3.9 3.5 - 5.0 mmol/L [facility] Comment: Please note: ??Patients with WBC >100,000 may have falsely elevated Potassium levels. ??For accurate Potassium quantification in these patients send serum separator tube (gold top) for subsequent determinations. ??Contact the Clinical Chemistry Laboratory if there are any questions. Chloride 110(H) 98 - 107 mmol/L [facility] CO2 20(L) 22 - 31 mmol/L [facility] Anion Gap 15 5 - 15 mmol/L [facility] Calcium 9.9 8.5 - 10.5 mg/dL [facility] Estimated GFR 61 >=60 mL/min/1. 73 m?? [facility] Comment: This patient's estimated [...] Lab Elle Tristan MD CHEMISTRY ORDER EDUAR [facility] [place] [address] * ECHO COMPLETE W CONTRAST (10/20/2023 11:32 AM EST) EF 67 [facility] Anatomical Region Laterality Modality Cardiac Other 10/20/2023 10:3 4 AM EST Narrative 10/20/2023 1:32 PM EST [address] [place] [address] ? Echocardiogram Report Name: KIM FUNES ? Study Date: 10/20/2023 10:34 AMBP: 138/56 mmHg ? Patient Location: [facility] CV24 A : 1960 ? Height: 65.5 in ? Account: [id number] Age: 63 yrs ? Weight: 170 lb Gender: Female ?BSA: 1.9 m2 Ordering Physician: ELLE TRISTAN Referring Physician: DONI HERBERT Exam Location: [facility]. Interpretation Summary Left ventricular size and systolic function is normal. The left ventricular ejection fraction is 67% by Elliott's biplane. There are no segmental wall motion abnormalities. Right ventricular systolic function is normal. No significant valvular disease. No prior studies for comparison. Procedure Complete-87049. Image enhancement Optison was used for left [...] Luis Alfredo Velazquez MD - 10/20/2023 1 [place] [address] Echocardiogram Report Name: KIM FUNES Study Date: 0:34 AMBP: 138/56 mmHg Patient Location: [address] : 1960 Height: 65.5 in Account: [id number] Age: 63 yrs Weight: 170 lb Gender: Female BSA: 1.9 m2 Ordering Physician: ELLE TRISTAN Referring Physician: DONI HERBERT Exam Location: [facility]. Interpretation Summary Left ventricular size and systolic function is normal. The leftventricular ejection fraction is 67% by Elliott's biplane. There are no segmental wallmotion abnormalities. Right ventricular systolic function is normal. No significant valvular disease. No prior studies for comparison. Procedure Complete-[id number]. Image enhancement Optison was used for left [...] Shearer, RN) 0857 (Given - Provider: Gracie Harding [...] on Fri10/20/23 at 2100, Until Discontinued, Routine 210 (Given - Provider: Kayla Sánchez RN) glucagon (Glucagen) (1 mg/mL) injection solution [...] Routine 1400 (Given - Provider: Alyssa Shearer, RN)2103 (Given - Provider: Kayla Sánchez, FRANCESCA) 0858 (Given - Provider: Gracie Harding, FRANCESCA)1310 (NOV Hold - Provider: Admin Adt - [...] orders before administering the next dose. 1310 (NOV Hold - Provider: Admin Adt [...] before administering the next dose., Routine 1310 (MAR Hold - Provider: Admin Adt - Reason: Transfer to a Procedural area)1517 (MAR Unhold - Provider: Admin Adt) glucose (Glutose) [...] of tube = 37.5 grams.), Routine 1310 ([facility] Hold - Provider: Admin Adt - Reason: Transfer to a Procedural area)1517 ([facility] Unhold - Provider: Admin Adt) lidocaine (Xylocaine) 1% (10 mg/mL) injection 3 mg 3 mg (0.3 mL), Subcutaneous, ONCE PRN, 1 dose, Starting on Fri10/20/23 at 1304, Until Fri10/22/23 at 1321, for discomfort with PIV insertion, Routine 1310 ([facility] Hold - Provider: Admin Adt - Reason: Transfer to a Procedural area)1517 ([facility] Unhold - Provider: Admin Adt) magnesium oxide (Mag-Ox) tablet 800 mg 800 mg, Oral, DAILY PRN, Starting on Fri10/20/23 at 1434, Until Fri10/22/23 at 1321, Hypomagnesemia, Administer for serum magnesium of 0.5 - 0.79 mMol/L, Routine 1637 (Given - Provider: Alyssa Shearer RN) 1310 ([facility] Hold - Provider: Admin Adt - Reason: Transfer to a Procedural area)1517 ([facility] Unhold - Provider: Admin Adt) 0615 (Given [...] last 24 to 72 hours., Routine 1310 ([facility] Hold - Provider: Admin Adt - Reason: Transfer to a Procedural area)1517 ([facility] Unhold - Provider: Admin Adt) perflutren protein-A [...] Routine documented in this encounter Care Teams Customer Operations Specialist Relationship Specialty Start Date End Date Marcoi Devlin DO [address] [place] [address] PCP - General Family Medicine 11/11/17 documented as of this encounter
--- OUTSIDE RECORDS SUMMARY | 2024-04-16 00:23 | XMS_ITS | Encounter Summary ---
Author Organization [facility] Address [facility] [place] [address] Care Team Providers Care Bowstring Maker Name Role Phone Marcio Devlin DO Primary Care Provider [phone] Encounter Details Date Type Department Care Team (Latest Contact Info) Description 10/11/2022 10:00 AM EST TH Visit (TeleHealth) [place] [phone] Gabe Fong MD [facility] [place] [address] Ankylosing spondylitis of cervical region; Ulcerative colitis [...] AM EDT Hospital Encounter Non-[place] [phone] Arrived 04/29/2024 9:50 AM EDT [place] [phone] Luis Alfredo Velazquez MD [facility] [place] [address] 04/29/2024 9:50 AM [place] [address] Luis Alfredo Velazquez MD [facility] [place] [address] 06/07/2024 2:30 PM EDT TH Visit (TeleHealth) Gastroenterology at [address] Dajuan Rachel MD [facility] [place] [address] 07/02/2024 2:00 PM EDT Appointment Non-Invasive Cardiology Lab [place] [phone] Luis Alfredo Velazquez MD [facility] [place] [address] 07/02/2024 4:00 PM EDT Office Visit Cardiology at [place] [phone] [place] PA [facility] [place] [address] 07/02/2024 4:40 PM EDT Office Visit Cardiology at [place] [phone] Luis Alfredo Velazquez MD [facility] [place] [address] documented as of this encounter Visit Diagnoses [...] Cervicalgia documented in this encounter Care Teams Bowstring Maker Relationship Specialty Start Date End Date Marcio Devlin DO [address] [place] [address] PCP - General Family Medicine 11/11/17 documented as of this encounter
--- OUTSIDE RECORDS SUMMARY | 2024-04-16 00:23 | XMS_ITS | Encounter Summary ---
Author Organization [facility] [place] [address] Care Team Providers Care Methods Engineer Name Role Phone Marcio Devlin DO Primary Care Provider [phone] Encounter Details Date Type Department Care Team (Late st Contact Info) Description 03/17/2023 Orders [place] [phone] Jarad Srivastava PA [address] [place] [address] Medication monitoring encounter Social History Tobacco Use [...] AM EDT Hospital Encounter Non-[place] [address] Arrived 04/29/2024 9:50 AM EDT Appointment MRI at [place] [phone] Luis Alfredo Velazquez MD [facility] [place] [address] 04/29/2024 9:50 AM [place] [address]1000 Luis Alfredo Velazquez MD [facility] [place] [address] 06/07/2024 2:30 PM EDT TH Visit (TeleHealth) [place] [address] Dajuan Rachel MD [facility] [place] [address] 07/02/2024 2:00 PM EDT Appointment Non-Invasive Cardiology Lab [place] [phone] Luis Alfredo Velazquez MD [facility] [place] [address] 07/02/2024 4:00 PM EDT Office Visit Cardiology at [address] [phone] Mars Green PA [facility] [place] [address] 07/02/2024 4:40 PM EDT Office Visit Cardiology at [address] [phone] Luis Alfredo Velazquez MD [facility] [place] [address] documented as of this encounter Visit Diagnoses Diagnosis Medication monitoring encounter Encounter for therapeutic drug monitoring documented in this encounter Care Teams Methods Engineer Relationship Specialty Start Date End Date Marcio Devlin DO [address] [place] [address] PCP - General Family Medicine 11/11/17 documented as of this encounter
--- OUTSIDE RECORDS SUMMARY | 2024-04-16 00:23 | XMS_ITS | Encounter Summary ---
Author Organization [facility] [place] [address] Care Team Providers Care Vice President Of Advertising Name Role Phone Marcio Devlin DO Primary Care Provider [phone] Encounter Details Date Type Department Care Team (Latest Contact Info) Description 04/28/2023 4:00 PM EDT TH Visit (TeleHealth) [place] [phone] Dajuan Rachel MD [facility] [place] [address] Ulcerative pancolitis with complication Social History Tobacco [...] slept in a halfway (including now)? No 05/03/2022 Sex and Gender [...] 2. Please have routine labs checked at [facility] every 2 weeks for 2 months after [...] 2020 - severe involvement of L colon, [id number] involvement of transverse and R colon. Worse compared to last exam. SSA at hepatic flexure Adalimumab level ([place]) was 12.7 Switched to Stelara ( 03/21/21, first infusion dose) d/t Lost of response to Humira. Stopped Uceris and sulfasalazine in January 2021. [place] 09/2022 - tubular featureless L colon with [...] week. 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 Has had a good summer. Got 6 weeks off and just started work again. Please see Qorus questionnaire results below for further details re current symptoms. -c Gastro Pre-Visit Questionnaire 04/28/2023 3:48 PM EDT [...] review of prior records): Reviewed labs from [facility] 03/24/23. BMP notable for creatinine of 1.2. [...] 2. Please have routine labs checked at [facility] every 2 weeks for 2 months after starting Rinvoq. 3. Approximately 8 weeks after starting Rinvoq, please have cholesterol (lipids) checked 4. Plan on repeat colonoscopy in September to make sure that still in remission on Rinvoq 5. Follow-up in the office or via telehealth in 6 months with Delilah Morrow APRN The patient was located in [place] at the time of their visit. TIME SPENT Time spent during encounter with patient including counselin minutes An additional 10 minutes were spent before and after the visit on this same day in preparation for the appointment, ordering tests and/or prescriptions, communicating with referring providers and completing documentation Approximate total time devoted to this single encounter: 20 L. Jose Rachel MD Tooling Inspectornaturalist Co-Director, [facility] Section of Gastroenterology [place] [address] documented in this encounter Plan of Treatment Upcoming Encounters Date Type Department Care Team (Late st Contact Info) Description 04/19/2024 10:00 AM EDT Hospital Encounter Non[place] [address] Arrived 04/29/2024 9:50 [place] [address] Luis Alfredo Velazquez MD [facility] [place] [address] 04/29/2024 9:50 [place] [address] Luis Alfredo Velazquez MD [facility] [place] [address] 06/07/2024 2:30 PM EDT TH Visit (TeleHealth) Gastroenterology at [place] [address] Dajuan Rachel MD [facility] [place] [address] 07/02/2024 2:00 PM EDT Appointment Non-Invasive Cardiology Lab [place] [address] Luis Alfredo Velazquez MD [facility] [place] [address] 07/02/2024 4:00 PM EDT Office Visit Cardiology at [place] [address] Mars Green PA [facility] [place] [address] 07/02/2024 4:40 PM EDT Office Visit Cardiology at [place] [address] Luis Alfredo Velazquez MD [facility] [place] [address] Scheduled Orders Name Type Priority Associated Diagnoses Orde r Schedule ENDOSCOPY CASE REQUEST: COLONOSCOPY, DIAGNOSTIC (WRVU 3.26) Procedures Routine Ulcerative pancolitis with complication Ordered: 04/28/2023 documented as of this encounter Visit Diagnoses Diagnosis Ulcerative pancolitis with complication documented in this encounter Care Teams Vice President Of Advertising Relationship Specialty Start Date End Date Marcio Devlin DO [address] [place] [address] [place] [address] PCP - General Family Medicine 11/11/17 documented as of this encounter
--- OUTSIDE RECORDS SUMMARY | 2024-04-16 00:23 | XMS_ITS | Encounter Summary ---
Author Organization [facility] [place] [address] Care Team Providers Care Brazing Furnace Feeder Name Role Phone Marcio Devlin DO Primary Care Provider [phone] Reason for Visit * Reason Comments Medication Refill Encounter Details Date Type Department Care Team (Late st Contact Info) Description 07/07/2023 Ref[place] [phone] Jarad Srivastava PA [address] [place] [address] Social History Tobacco Use Types Packs/Day Years [...] AM EDT Hospital Encounter Non-[place] [address] Arrived 04/29/2024 9:50 AM EDT Appointment MRI at [place] [phone] Luis Alfredo Velazquez MD [facility] [place] [address] 04/29/2024 9:50 AM ED[place] [address] Luis Alfredo Velazquez MD [facility] [place] [address] 06/07/2024 2:30 PM EDT TH Visit (TeleHealth) Gastroenterology at [place] [phone] Dajuan Rachel MD [facility] [place] [address] 07/02/2024 2:00 PM EDT Appointment Non-[place] [address] Luis Alfredo Velazquez MD [facility] [place] [address] 07/02/2024 4:00 PM EDT Office Visit Cardiology at [address]1000 Mars Green PA [facility] [place] [address] 07/02/2024 4:40 PM EDT Office [place] [address] Luis Alfredo Velazquez MD [facility] [place] [address] documented as of this encounter Visit Diagnoses Not on filedocumented in this encounter Care Teams Brazing Furnace Feeder Relationship Specialty Start Date End Date Marcio Devlin DO [address] [place] [address] PCP - General Family Medicine 11/11/17 documented as of this encounter
--- OUTSIDE RECORDS SUMMARY | 2024-04-16 00:23 | XMS_ITS | Encounter Summary ---
Author Organization [facility] [place] [address] Care Team Providers Care Upper Leather Cutter Name Role Phone Marcio Devlin DO Primary Care Provider [phone] Reason for Visit * Reason Comments Specialty Pharmacy Review Upadacitinib ( Rinvoq) 15mg Tablet Encounter Details Date Type Department Care Team (Late st Contact Info) Description 03/06/2023 Specialty [place] [address] Alison Ortiz, [facility] Social History Tobacco Use Types Packs/Day Years [...] EDT Hospital Encounter Non-Invasive [place] [address] Arrived 04/29/2024 9:50 AM ED[place] [phone] Luis Alfredo Velazquez MD [facility] [place] [address] 04/29/2024 9:50 AM EDT Appointment MRI at [place] [address] Luis Alfredo Velazquez MD [facility] [place] [address] 06/07/2024 2:30 PM EDT TH Visit (TeleHealth) Gastroenterology at [place] [address] Dajuan Rachel MD [facility] [place] [address] 07/02/2024 2:00 PM EDT Appointment Non-Invasive Cardiology Lab [address]1000 Luis Alfredo Velazquez MD [facility] [place] [address] 07/02/2024 4:00 PM EDT Office Visit Cardiology at [place] [address] Mars Green PA [facility] [place] [address] 07/02/2024 4:40 PM EDT Office Visit Cardiology at [address]1000 Luis Alfredo Velazquez MD [facility] [place] [address] documented as of this encounter Visit Diagnoses Not on filedocumented in this encounter Care Teams Upper Leather Cutter Relationship Specialty Start Date End Date Marcio Devlin DO [address] [place] [address] PCP - General Family Medicine 11/11/17 documented as of this encounter
--- OUTSIDE RECORDS SUMMARY | 2024-04-16 00:23 | XMS_ITS | Encounter Summary ---
Author Organization [facility] Address [facility] [place] [address] Care Team Providers Care Phone Technician Name Role Phone Marcio Devlin DO Primary Care Provider [phone] Encounter Details Date Type Department Care Team (Late st Contact Info) Description 03/10/2023 Orders Only [place] [address] Dajuan Rachel MD [facility] [place] [address] Social History Tobacco Use Types Packs/Day Years [...] AM EDT Hospital Encounter Non-Invasive [place] [address]-1000 Arrived 04/29/2024 9:50 AM EDT [place] [address]-1000 Luis Alfredo Velazquez MD [facility] [place] [address] 04/29/2024 9:50 AM ED[place] [address] Luis Alfredo Velazquez MD [facility] [place] [address] 06/07/2024 2:30 PM EDT TH Visit (TeleHealth) Gastroenterology at [place] [phone] Dajuan Rachel MD [facility] [place] [address] 07/02/2024 2:00 PM EDT Appointment Non-Invasive Cardiology Lab [place] [phone] Luis Alfredo Velazquez MD [facility] [place] [address] 07/02/2024 4:00 PM EDT Office [place] [address] Mars Green, YURIY [facility] [place] [address] 07/02/2024 4:40 PM EDT Office Visit Cardiology at [place] [phone] Luis Alfredo Velazquez MD [facility] [place] [address] documented as of this encounter Visit Diagnoses Not on filedocumented in this encounter Care Teams Phone Technician Relationship Specialty Start Date End Date Marcio Devlin DO [address] [place] [address] PCP - General Family Medicine 11/11/17 documented as of this encounter
--- OUTSIDE RECORDS SUMMARY | 2024-04-16 00:23 | XMS_ITS | Encounter Summary ---
Author Organization [facility] [place] [address] Care Team Providers Care Pension Manager Name Role Phone Marcio Devlin DO Primary Care Provider [phone] Reason for Visit * Reason Comments Specialty Pharmacy Review Rinvoq 15mg Encounter Details Date Type Department Care Team (Late st Contact Info) Description 04/28/2023 Specialty [place] [address] Tangela Agarwal, PLASTER MOLD MAKER Social History Tobacco Use Types Packs/Day Years [...] Agarwal - 04/28/2023 11:59 PM EDT The [facility] has completed a benefits investigation for Kim Funes to review their eligibility to fill at [facility]. Per patient's medication list they are prescribed Rinvoq and the medication is not able to be filled at the [facility]. At this time insurance mandates this medication must be filled through [facility] documented in this encounter Plan of Treatment Upcoming Encounters Date Type Department Care Team (Late st Contact Info) Description 04/19/2024 10:00 AM EDT Hospital Encounter Non-[place] [address] Arrived 04/29/2024 9:50 [place] [address]-1000 Luis Alfredo Velazquez MD [facility] [place] [address] 04/29/2024 9:50 AM EDT Appointment MRI at [place] [address] Luis Alfredo Velazquez MD [facility] [place] [address] 06/07/2024 2:30 PM EDT TH Visit (TeleHealth) Gastroenterology at [place] [address] Dajuan Rachel MD [facility] [place] [address] 07/02/2024 2:00 PM EDT Appointment Non-Invasive Cardiology Lab [address]1000 Luis Alfredo Velazquez MD [facility] [place] [address] 07/02/2024 4:00 PM EDT Office Visit Cardiology at [place] [address] Mars Green PA [facility] [place] [address] 07/02/2024 4:40 PM EDT Office [place] [address] Luis Alfredo Velazquez MD [facility] [place] [address] documented as of this encounter Visit Diagnoses Not on filedocumented in this encounter Care Teams Pension Manager Relationship Specialty Start Date End Date Marcio Devlin DO [address] [place] [address] PCP - General Family Medicine 11/11/17 documented as of this encounter
--- OUTSIDE RECORDS SUMMARY | 2024-04-16 00:23 | XMS_ITS | Encounter Summary ---
Author Organization [facility] [place] [address] Care Team Providers Care Bleach Plant Operator Name Role Phone Marcio Devlin DO Primary Care Provider [phone] Encounter Details Date Type Department Care Team [...] AM EDT Hospital Encounter Non-Invasive [place] [address] Arrived 04/29/2024 9:50 AM EDT Appointment MRI at [place] [address] Luis Alfredo Velazquez MD [facility] [place] [address] 04/29/2024 9:50 AM [place] [address] Luis Alfredo Velazquez MD [facility] [place] [address] 06/07/2024 2:30 PM EDT TH Visit (TeleHealth) Gastroenterology at [place] [phone] Dajuan Rachel MD [facility] [place] [address] 07/02/2024 2:00 PM EDT Appointment Non-Invasive Cardiology [place] [address] Luis Alfredo Velazquez MD [facility] [place] [address] 07/02/2024 4:00 PM EDT Office [place] [address] Mars Green PA [facility] [place] [address] 07/02/2024 4:40 PM EDT Office Visit Cardiology at [address] [phone] Luis Alfredo Velazquez MD [facility] [place] [address] documented as of this encounter Visit Diagnoses Not on filedocumented in this encounter Care Teams Bleach Plant Operator Relationship Specialty Start Date End Date Marcio Devlin DO [address] [place] [address] PCP - General Family Medicine 11/11/17 documented as of this encounter
--- OUTSIDE RECORDS SUMMARY | 2024-04-16 00:23 | XMS_ITS | Encounter Summary ---
Author Organization [facility] [place] [address] Care Team Providers Care Meal Grinder Tender Name Role Phone Marcio Devlin DO Primary Care Provider [phone] Encounter Details Date Type Department Care Team (Late st Contact Info) Description 03/27/2023 Telephone [place] [address] Sabrina Casarez RN Social History [...] ing therapy ----- Message ----- From: Balwinder, Edge Inker Uppers Sent: 03/26/2023 3:11 PM EDT To: Gabe Fong MD documented in this encounter Plan of Treatment Upcoming Encounters Date Type Department Care Team (Late st Contact Info) Description 04/19/2024 10:00 AM EDT Hospital Encounter Non-Invasive [place] [address] Arrived 04/29/2024 9:50 AM EDT [place] [address] [address] [facility] [place] [address] 04/29/2024 9:50 AM EDT Appointment MRI at [place] [address] [address] [facility] [place] [address] 06/07/2024 2:30 PM EDT TH Visit (TeleHealth) Gastroenterology at [place] [address] [facility] [place] [address] 07/02/2024 2:00 PM EDT Appointment Non-Invasive Cardiology Lab [place] [address] [address] [facility] [place] [address] 07/02/2024 4:00 PM EDT Office Visit Cardiology at [place] [address] [facility] [place] [address] 07/02/2024 4:40 PM EDT Office Visit Cardiology at [place] [address] [address] [facility] [place] [address] documented as of this encounter Visit Diagnoses Not on filedocumented in this encounter Care Teams Meal Grinder Tender Relationship Specialty Start Date End Date Marcio Devlin DO [address] [place] [address] PCP - General Family Medicine 11/11/17 documented as of this encounter
--- OUTSIDE RECORDS SUMMARY | 2024-04-16 00:23 | XMS_ITS | Encounter Summary ---
Author Organization [facility] Address [facility] [place] [address] Care Team Providers Care Splicing Technician Name Role Phone Marcio Devlin DO Primary Care Provider [phone] Encounter Details Date Type Department Care Team (Late st Contact Info) Description 03/13/2023 Refill [place] [address] Gabe Fong MD [facility] [place] [address] Social History Tobacco Use Types Packs/Day Years [...] AM EDT Hospital Encounter Non-[place] [address] Arrived 04/29/2024 9:50 AM EDT Appointment MRI at [place] [phone] Luis Alfredo Velazquez MD [facility] [place] [address] 04/29/2024 9:50 AM EDT [place] [address] Luis Alfredo Velazquez MD [facility] [place] [address] 06/07/2024 2:30 PM EDT TH Visit (TeleHealth) Gastroenterology at [place] [phone] Dajuan Rachel MD [facility] [place] [address] 07/02/2024 2:00 PM EDT Appointment Non-[place] [address] Luis Alfredo Velazquez MD [facility] [place] [address] 07/02/2024 4:00 PM EDT [place] [address] Mars Green PA [facility] [place] [address] 07/02/2024 4:40 PM EDT [place] [address] Luis Alfredo Velazquez MD [facility] [place] [address] documented as of this encounter Visit Diagnoses Not on filedocumented in this encounter Care Teams Splicing Technician Relationship Specialty Start Date End Date Marcio Devlin DO [address] [place] [address] PCP - General Family Medicine 11/11/17 documented as of this encounter
--- OUTSIDE RECORDS SUMMARY | 2024-04-16 00:23 | XMS_ITS | Encounter Summary ---
Author Organization [facility] [place] [address] Care Team Providers Care President And Chief Commercial Officer Name Role Phone Marcio Devlin DO Primary Care Provider [phone] Reason for Visit * Reason Comments Medication Refill Encounter Details Date Type Department Care Team (Late st Contact Info) Description 02/17/2023 Refill [place] [address] Dajuan Rachel MD [facility] [place] [address] Ulcerative pancolitis without complication Social History Tobacco [...] AM EDT Hospital Encounter Non-[place] [address] Arrived 04/29/2024 9:50 AM [place] [address] Luis Alfredo Velazquez MD [facility] [place] [address] 04/29/2024 9:50 AM ED[place] [address] Luis Alfredo Velazquez MD [facility] [place] [address] 06/07/2024 2:30 PM EDT TH Visit (TeleHealth) [place] [address] Dajuan Rachel MD [facility] [place] [address] 07/02/2024 2:00 PM EDT Appointment Non-Invasive Cardiology Lab [address]1000 Luis Alfredo Velazquez MD [facility] [place] [address] 07/02/2024 4:00 PM EDT Office [place] [address] Mars Green PA [facility] [place] [address] 07/02/2024 4:40 PM EDT Office Visit Cardiology at [address]1000 Luis Alfredo Velazquez MD [facility] [place] [address] documented as of this encounter Visit Diagnoses Diagnosis Ulcerative pancolitis without complication documented in this encounter Care Teams President And Chief Commercial Officer Relationship Specialty Start Date End Date Marcio Devlin DO [address] [place] [address] PCP - General Family Medicine 11/11/17 documented as of this encounter
--- OUTSIDE RECORDS SUMMARY | 2024-04-16 00:23 | XMS_ITS | Encounter Summary ---
Author Organization [facility] [place] [address] Care Team Providers Care Cell Changer Name Role Phone Marcio Devlin DO Primary Care Provider [phone] Reason for Visit * Occupational Therapy (Routine) - Closed Specialty Diagnoses / Procedures Referred By Missy escalera Referred To Contact Occupational Therapy Diagnoses Inflammatory arthropathy Arthralgia of both hands Camila Alex MD [facility] [place] [address] Htr Rehab Ot [address] [place] [address] Referral ID Status Reason Start Date Expiration Date V isits Requested Visits Authorized [id number] Closed Evaluate and Treat 01/28/2023 01/28/2024 100 100 Encounter Details Date Type Department Care Team (Late st Contact Info) Description 02/25/2023 8:30 AM EDT Office Visit Occupational Therapy at [facility] [address] [place] [address] Sowmya Delatorre, OT Inflammatory arthropathy [...] bilateral hands, no precipitating injury of note. Kim Funes is referred to Occupational Therapy for evaluation and treatment. Patient presents today alone. Kim Funes is followed by rheumatology. Date of onset of symptoms: Chronic, worsening Pertinent History and/or Co-morbidities: 1. 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 Manage transportation needs [...] Small Finger 0/90 0/86 0/60 DPC Strength: Inspector And Sorter Testing with Dynamometer setting #2 Pinch Testing with Pinch Gauge Right Left Inspector And Sorter setting 2 44.9, 39.5, 49.4 47.3, 44.2, 48.7 Inspector And Sorter Average 44.6 46.7 Truong 14 14 3 Pt 14 10 Tip 14 10 Treatment Today: Evaluation MODERATE Complexity (04115) Educated patient in etiology and biomechanics as [...] EDT Hospital Encounter Non-Invasive [place] [address] Arrived 04/29/2024 9:50 AM EDT [place] [address] Lui sAlfredo Velazquez MD [facility] [place] [address] 04/29/2024 9:50 AM ED[place] [address] Luis Alfredo Velazquez MD [facility] [place] [address] 06/07/2024 2:30 PM EDT TH Visit (TeleHealth) Gastroenterology at [place] [address] Dajuan Rachel MD [facility] [place] [address] 07/02/2024 2:00 PM EDT Appointment Non-Invasive Cardiology Lab [address] Luis Alfredo Velazquez MD [facility] [address] 07/02/2024 4:00 PM EDT Office Visit Cardiology at [place] [phone] Mars Green PA [facility] [place] [address] 07/02/2024 4:40 PM EDT Office Visit Cardiology at [place] [address] Luis Alfredo Velazquez MD [facility] [place] [address] Scheduled Referrals Name Type Priority Associated Diagnoses Order Schedule Referral to Occupational Therapy Outpatient Referral Routine Inflammatory arthropathy Arthralgia of both hands Ordered: 01/28/2023 documented as of this encounter Visit Diagnoses Diagnosis Inflammatory arthropathy Arthropathy, unspecified, site unspecified documented in this encounter Care Teams Cell Changer Relationship Specialty Start Date End Date Marcio Devlin DO [address] [place] [address] PCP - General Family Medicine 11/11/17 documented as of this encounter
--- OUTSIDE RECORDS SUMMARY | 2024-04-16 00:23 | XMS_ITS | Encounter Summary ---
Author Organization [facility] [place] [address] Care Team Providers Care Forming Machine Upkeep Mechanic Name Role Phone Marcio Devlin DO Primary Care Provider [phone] Encounter Details Date Type Department Care Team (Late st Contact Info) Description 10/10/2022 Telephone [place] [address] María Elena Jean, MA Social [...] AM EDT Hospital Encounter Non[place] [address] Arrived 04/29/2024 9:50 AM EDT Appointment MRI at [place] [phone] Luis Alfredo Velazquez MD [facility] [place] [address] 04/29/2024 9:50 AM [place] [address] Luis Alfredo Velazquez MD [facility] [place] [address] 06/07/2024 2:30 PM EDT TH Visit (TeleHealth) Gastroenterology at [place] [address] Daujan Rachel MD [facility] [place] [address] 07/02/2024 2:00 PM EDT Appointment Non-Invasive Cardiology Lab [address]1000 Luis Alfredo Velazquez MD [facility] [place] [address] 07/02/2024 4:00 PM EDT Office Visit Cardiology at [place] [address] Mars Green PA [facility] [place] [address] 07/02/2024 4:40 PM EDT Office Visit Cardiology at [place] [address] Luis Alfredo Velazquez MD [facility] [place] [address] documented as of this encounter Visit Diagnoses Not on filedocumented in this encounter Care Teams Forming Machine Upkeep Mechanic Relationship Specialty Start Date End Date Marcio Devlin DO [address] [place] [address] PCP - General Family Medicine 11/11/17 documented as of this encounter
--- OUTSIDE RECORDS SUMMARY | 2024-04-16 00:23 | XMS_ITS | Encounter Summary ---
Author Organization [facility] [place] [address] Care Team Providers Care Resin Painter Name Role Phone Marcio Devlin DO Primary Care Provider [phone] Encounter Details Date Type Department Care Team [...] AM EDT Hospital Encounter Non-[place] [address] Arrived 04/29/2024 9:50 AM EDT Appointment MRI at [place] [address] Luis Alfredo Velazquez MD [facility] [address] 04/29/2024 9:50 AM EDT [place] [address] Luis Alfredo Velazquez MD [facility] [place] [address] 06/07/2024 2:30 PM EDT TH Visit (TeleHealth) Gastroenterology at [place] [phone] Dajuan Rachel MD [facility] [place] [address] 07/02/2024 2:00 PM EDT Appointment Non-Invasive Cardiology [place] [address] Luis Alfredo Velazquez MD [facility] [place] [address] 07/02/2024 4:00 PM EDT Office [place] [address] Mars Green PA [facility] [place] [address] 07/02/2024 4:40 PM EDT Office Visit Cardiology at [address] [phone] Luis Alfredo Velazquez MD [facility] [place] [address] documented as of this encounter Visit Diagnoses Not on filedocumented in this encounter Care Teams Resin Painter Relationship Specialty Start Date End Date Marcio Devlin DO [address] [place] [address] PCP - General Family Medicine 11/11/17 documented as of this encounter
--- OUTSIDE RECORDS SUMMARY | 2024-04-16 00:23 | XMS_ITS | Encounter Summary ---
Author Organization [facility] Address [facility] [place] [address] Care Team Providers Care Insecticide Supervisor Name Role Phone Marcio Devlin DO Primary Care Provider [phone] Encounter Details Date Type Department Care Team (Latest Contact Info) Description 04/04/2023 10:30 AM EDT TH Visit (TeleHealth) [place] [phone] Gabe Fong MD [facility] [address] [place] [address] High risk medication use; Medication monitoring encounter; [...] the money to buy more. Never true 08/19/20 22 Within the past 12 months, t [...] AM EDT Hospital Encounter Non[place] [address] Arrived 04/29/2024 9:50 AM ED[place] [address] Luis Alfredo Velazquez MD [facility] [place] [address] 04/29/2024 9:50 AM ED[place] [address] Luis Alfredo Velazquez MD [facility] [place] [address] 06/07/2024 2:30 PM EDT TH Visit (TeleHealth) Gastroenterology at [address] Dajuan Rachel MD [facility] [place] [address] 07/02/2024 2:00 PM EDT Appointment Non-Invasive Cardiology Lab [address]1000 Luis Alfredo Velazquez MD [facility] [place] [address] 07/02/2024 4:00 PM EDT Office Visit Cardiology at [address]1000 Mars Green PA [facility] [place] [address] 07/02/2024 4:40 PM EDT Office Visit Cardiology at [address]1000 Luis Alfredo Velazquez MD [facility] [place] [address] documented as of this encounter Visit Diagnoses Diagnosis High risk medication use Encounter for long-term (current) use of other medications Medication monitoring encounter Encounter for therapeutic drug monitoring Ulcerative colitis without complications, unspecified location Ankylosing spondylitis of cervical region Ankylosing spondylitis Primary osteoarthritis of both hips Primary localized osteoarthrosis, pelvic region and thigh documented in this encounter Care Teams Insecticide Supervisor Relationship Specialty Start Date End Date Marcio Devlin DO [address] [place] [address] PCP - General Family Medicine 11/11/17 documented as of this encounter
--- OUTSIDE RECORDS SUMMARY | 2024-04-16 00:23 | XMS_ITS | Encounter Summary ---
Author Organization [facility] Address [facility] [place] [address] Care Team Providers Care Electronic Coils Supervisor Name Role Phone Marcio Devlin DO Primary Care Provider [phone] Encounter Details Date Type Department Care Team (Late st Contact Info) Description 01/28/2023 3:18 PM EDT - 01/28/2023 11:59 PM EDT Hospital Encounter XRay at [address] [place] [address] Lola Haley, [facility] [place] [address] Inflammatory arthropathy; Arthralgia of both hands; Ankylosing [...] by mouth daily. SUMAtriptan (IMITREX) 20 mg/actuation [place], Non-Aerosol 1 spray as needed. 11/03/2017 metFORMIN [...] Hospital Encounter Non-Invasive [place] [address] Arrived 04/29/2024 9:50 AM [place] [address] Luis Alfredo Velazquez MD [facility] [place] [address] 04/29/2024 9:50 AM EDT Appointment MRI at [place] [phone] Luis Alfredo Velazquez MD [facility] [place] [address] 06/07/2024 2:30 PM EDT TH Visit (TeleHealth) Gastroenterology at [place] [phone] Dajuan Rachel MD [facility] [place] [address] 07/02/2024 2:00 PM EDT Appointment Non-[place] [address] Luis Alfredo Velazquez MD [facility] [place] [address] 07/02/2024 4:00 PM EDT Office Visit Cardiology at [address] [address] Mars Green PA [facility] [place] [address] 07/02/2024 4:40 PM EDT Office Visit Cardiology at [address] [address] Luis Alfredo Velazquez MD [facility] [place] [place] [address] documented as of this encounter Procedures Procedure [...] who have questions please contact the health lead care manager that requested your imaging first. ? Electronically signed by: [facility]ma [facility] ([phone]), at 01/29/2023 7:29 AM Narrative 01/29/2023 7:29 [...] patients who have questions please contactthe health lead care manager that requested your imaging first. Electronically signed by: Anusha Ledezma [facility]([phone]), at 01/29/2023 7:29 AM Lola Haley DO IMG DX ORDERABLES * [...] who have questions please contact the health lead care manager that requested your imaging first. ? Electronically signed by: JERALD CARNEY MD, [facility] ??([phone]), at 01/28/2023 4:20 PM Narrative 01/28/2023 4:20 [...] joint consistent with osteoarthritis. Procedure Note Jerald Carney MD - 01/28/2023 EXAMINATION: XR SACROILIAC JOINTS (GENERIC) CLINICAL HISTORY: ankylosing spondy, ulcerative colitis, looking forprogression TECHNIQUE: 3 views of the sacroiliac joints COMPARISON: Pelvis/hip MRI 02/04/2022, pelvis and left hip radiographs 11/21/2021 FINDINGS: Ankylosis of the bilateral sacroiliac joints, present on prior MRI [id number]. No fracture. Pubic symphysis is congruent with [...] patients who have questions please contactthe health lead care manager that requested your imaging first. Electronically signed by: JERALD CARNEY MD, [facility]([phone]), at 01/28/2023 4:20 PM Lola Haley DO IMG DX ORDERABLES documented in this encounter Visit Diagnoses Diagnosis Inflammatory arthropathy Arthropathy, unspecified, site unspecified Arthralgia of both hands Ankylosing spondylitis of cervical region Ankylosing spondylitis documented in this encounter Care Teams Electronic Coils Supervisor Relationship Specialty Start Date End Date Marcio Delvin DO [address] [place] [address] PCP - General Family Medicine 11/11/17 documented as of this encounter
--- OUTSIDE RECORDS SUMMARY | 2024-04-16 00:23 | XMS_ITS | Encounter Summary ---
Author Organization [facility] Address [facility] [place] [address] Care Team Providers Care Hardware Manager Name Role Phone Marcio Devlin DO Primary Care Provider [phone] Encounter Details Date Type Department Care Team (Late st Contact Info) Description 02/05/2023 Orders [place] [address] Dajuan Rachel MD [facility] [place] [address] Social History Tobacco Use Types Packs/Day Years [...] slept in a usp (including now)? No 05/03/2022 Sex and Gender Information Value Date Recorded Sex Assigned at Female 07/21/2021 4:56 PM EDT Gender Identity Female 07/21/2021 4:56 PM EDT Sexual Orientation Straight 07/21/2021 4: 56 PM EDT documented as of this encounter Plan of Treatment Upcoming Encounters Date Type Department Care Team (Late st Contact Info) Description 04/19/2024 10:00 AM EDT Hospital Encounter Non-Invasive [place] [address] Arrived 04/29/2024 9:50 AM [place] [address] Luis Alfredo Velazquez MD [facility] [place] [address] 04/29/2024 9:50 AM [place] [address] Luis Alfredo Velazquez MD [facility] [place] [address] 06/07/2024 2:30 PM EDT TH Visit (TeleHealth) Gastroenterology at [place] [phone] Dajuna Rachel MD [facility] [place] [address] 07/02/2024 2:00 PM EDT Appointment Non-Invasive Cardiology Lab [place] [phone] Luis Alfredo Velazquez MD [facility] [place] [address] 07/02/2024 4:00 PM EDT [place] [address] Mars Green, YURIY [facility] [place] [address] 07/02/2024 4:40 PM EDT Office Visit Cardiology at [place] [phone] Luis Alfredo Velazquez MD [facility] [place] [address] documented as of this encounter Visit Diagnoses Not on filedocumented in this encounter Care Teams Hardware Manager Relationship Specialty Start Date End Date Marcio Devlin DO [address] [place] [address] PCP - General Family Medicine 11/11/17 documented as of this encounter
--- OUTSIDE RECORDS SUMMARY | 2024-04-16 00:23 | XMS_ITS | Encounter Summary ---
Author Organization [facility] [place] [address] Care Team Providers Care Mold Laminator Name Role Phone Marcio Devlin DO Primary Care Provider [phone] Reason for Visit * Reason Comments Medication Management Encounter Details Date Type Department Care Team (Late st Contact Info) Description 03/17/2023 Specialty [place] [address] Francisca Olivas, [facility] Social History Tobacco Use Types [...] this encounter Progress Notes * Francisca Olivas [facility] - 03/17/2023 1:58 PM EDT Specialty Pharmacy Initial Consultation; Francisca Olivas [facility] Comprehensive Medication Management (CMM) Kim Stricklandeneuve Diagnosis: [...] yes - pt needs labs sent to [facility] Patient understands no changes to current drug regimen were made at the appointment and that [facility] isprov[facility] recommendations (summary located at top of note) for provider review and follow up. Francisca Olivas RPH 03/17/23 2:04 PM documented in this encounter Plan of Treatment Upcoming Encounters Date Type Department Care Team (Late st Contact Info) Description 04/19/2024 10:00 AM EDT Hospital Encounter [place] [address] Arrived 04/29/2024 9:50 AM EDT [place] [address] Luis Alfredo Velazquez MD [facility] [place] [address] 04/29/2024 9:50 AM EDT [place] [address] Luis Alfredo Velazquez MD [facility] [place] [address] 06/07/2024 2:30 PM EDT TH Visit (TeleHealth) [place] [address] Dajuan Rachel MD [facility] [place] [address] 07/02/2024 2:00 PM EDT Appointment [place] [address] Luis Alfredo Velazquez MD [facility] [place] [address] 07/02/2024 4:00 PM EDT Office Visit Cardiology at [address] [phone] Mars Green PA [facility] [place] [address] 07/02/2024 4:40 PM EDT Office Visit Cardiology at [address] [address] Luis Alfredo Velazquez MD [facility] [place] [address] documented as of this encounter Visit Diagnoses Not on filedocumented in this encounter Care Teams Mold Laminator Relationship Specialty Start Date End Date Marcio Devlin DO [address] [place] [address] PCP - General Family Medicine 11/11/17 documented as of this encounter
--- OUTSIDE RECORDS SUMMARY | 2024-04-16 00:23 | XMS_ITS | Encounter Summary ---
Author Organization [facility] [place] [address] Care Team Providers Care Welding Inspector Name Role Phone Marcio Devlin DO Primary Care Provider [phone] Reason for Visit * Reason Comments Specialty Pharmacy Review Upadacitinib ( Rinvoq) 15mg Tablet Encounter Details Date Type Department Care Team (Late st Contact Info) Description 07/07/2023 Specialty [place] [address] Alison Ortiz, [facility] Social History Tobacco Use Types [...] their eligibility to fill at [facility]. Per patient's medication list they are prescribed Rinvoq and the medication is not able to be filled at the [facility]. At this time insurance mandates this medication must be filled through [facility]. documented in this encounter Plan of Treatment Upcoming Encounters Date Type Department Care Team (Late st Contact Info) Description 04/19/2024 10:00 AM EDT Hospital Encounter Non[place] [address] Arrived 04/29/2024 9:50 [place] [address] Luis Alfredo Velazquez MD [facility] [place] [address] 04/29/2024 9:50 AM EDT Appointment MRI at [place] [address] Luis Alfredo Velazquez MD [facility] [place] [address] 06/07/2024 2:30 PM EDT TH Visit (TeleHealth) Gastroenterology at [place] [address] Dajuan Rachel MD [facility] [place] [address] 07/02/2024 2:00 PM EDT Appointment Non-Invasive Cardiology Lab [place] [address] Luis Alfredo Velazquez MD [facility] [place] [address] 07/02/2024 4:00 PM EDT Office Visit Cardiology at [place] [address] Mars Green PA [facility] [place] [address] 07/02/2024 4:40 PM EDT Office Visit Cardiology at [place] [address] Luis Alfredo Velazquez MD [facility] [place] [address] documented as of this encounter Visit Diagnoses Not on filedocumented in this encounter Care Teams Welding Inspector Relationship Specialty Start Date End Date Marcio Devlin DO [address] [place] [address] PCP - General Family Medicine 11/11/17 documented as of this encounter
--- OUTSIDE RECORDS SUMMARY | 2024-04-16 00:23 | XMS_ITS | Encounter Summary ---
Author Organization [facility] [place] [address] Care Team Providers Care Head Greenskeeper Name Role Phone Marcio Devlin DO Primary Care Provider Encounter Details Date Type Department Care Team (Late st Contact Info) Description 12/06/2022 Ancillary Procedure [place] [phone] Marcio Devlin DO [address] [place] [address] Social History Tobacco Use Types [...] AM EDT Hospital Encounter [place] [address] Arrived 04/29/2024 9:50 [place] [address] Luis Alfredo Velazquez MD [facility] [place] [address] 04/29/2024 9:50 AM [place] [address] Luis Alfredo Velazquez MD [facility] [place] [address] 06/07/2024 2:30 PM EDT TH Visit (TeleHealth) Gastroenterology at [place] [phone] Dajuan Rachel MD [facility] [place] [address] 07/02/2024 2:00 PM EDT Appointment [place] [address] Luis Alfredo Velazquez MD [facility] [place] [address] 07/02/2024 4:00 PM EDT Office Visit Cardiology at [address] [phone] Mars Green PA [facility] [place] [address] 07/02/2024 4:40 PM EDT Office Visit Cardiology at [address] [phone] Luis Alfredo Velazquez MD [facility] [place] [address] documented as of this encounter Procedures Procedure Name Priority Date/Time Associated Diagnosis Comments FILM LIBRARY STORAGE ONLY DX HAND Routine 12/06/2022 12:00 AM EDT documented in this encounter Results * Film Library- Storage Only DX Hand (12/06/2022 12:00 AM EDT) Narrative [facility] - 12/09/2022 10:02 AM EDT This exam is auto-finalizing. It's purpose is for storage only. Marcio Devlin DO [facility] FILM LIBRARY ORD ERABLES [place], [place] documented in this encounter Visit Diagnoses Not on filedocumented in this encounter Care Teams Head Greenskeeper Relationship Specialty Start Date End Date Marcio Devlin DO [address] [place] [address] PCP - General Family Medicine 11/11/17 documented as of this encounter
--- OUTSIDE RECORDS SUMMARY | 2024-04-16 00:23 | XMS_ITS | Encounter Summary ---
Author Organization Formerly [facility] [place] [address] Care Team Providers Care Physical Chemist Name Role Phone Marcio Devlin DO Primary Care Provider [phone] Encounter Details Date Type Department Care Team [...] AM EDT Hospital Encounter Non-[place] [address] Arrived 04/29/2024 9:50 AM EDT Appointment MRI at [place] [address] Luis Alfredo Velazquez MD [facility] [address] 04/29/2024 9:50 AM ED[place] [address] Luis Alfredo Velazquez MD [facility] [place] [address] 06/07/2024 2:30 PM EDT TH Visit (TeleHealth) Gastroenterology at [place] [phone] Dajuan Rachel MD [facility] [place] [address] 07/02/2024 2:00 PM EDT Appointment Non-Invasive Cardiology [place] [address] Luis Alfredo Velazquez MD [facility] [address] 07/02/2024 4:00 PM EDT Office [place] [address] Mars Green PA [facility] [address] 07/02/2024 4:40 PM EDT Office Visit Cardiology at [address] [phone] Luis Alfredo Velazquez MD [facility] [place] [address] documented as of this encounter Visit Diagnoses Not on filedocumented in this encounter Care Teams Physical Chemist Relationship Specialty Start Date End Date Marcio Devlin DO [address] [place] [address] PCP - General Family Medicine 11/11/17 documented as of this encounter
--- OUTSIDE RECORDS SUMMARY | 2024-04-16 00:23 | XMS_ITS | Encounter Summary ---
Author Organization [facility] [place] [address] Care Team Providers Care Power Shovel Operator Name Role Phone Marcio Devlin DO Primary Care Provider [phone] Encounter Details Date Type Department Care Team (Late st Contact Info) Description 03/21/2023 Orders [place] [phone] Sabrina Casarez RN Social History Tobacco Use [...] Hospital Encounter Non-Invasive Cardiology Lab [place] [phone] Arrived 04/29/2024 9:50 AM EDT Appointment MRI at [address] Luis Alfredo Velazquez MD [facility] [place] [address] 04/29/2024 9:50 AM EDT Appointment MRI at [place] [phone] Lius Alfredo Velazquez MD [facility] [place] [address] 06/07/2024 2:30 PM EDT TH Visit (TeleHealth) Gastroenterology at [place] [phone] Dajuan Rachel MD [facility] [place] [address] 07/02/2024 2:00 PM EDT Appointment Non-[place] [phone] Luis Alfredo Velazquez MD [facility] [place] [address] 07/02/2024 4:00 PM EDT Office Visit Cardiology at [address] [phone] Mars Green PA [facility] [place] [address] 07/02/2024 4:40 PM EDT Office Visit Cardiology at [address] [phone] Luis Alfredo Velazquez MD [facility] [place] [address] documented as of this encounter Visit Diagnoses Not on filedocumented in this encounter Care Teams Power Shovel Operator Relationship Specialty Start Date End Date Marcio Devlin DO [address] [place] [address] PCP - General Family Medicine 11/11/17 documented as of this encounter
--- OUTSIDE RECORDS SUMMARY | 2024-04-16 00:23 | XMS_ITS | Encounter Summary ---
Author Organization [facility] [place] [address] Care Team Providers Care Live Ammunition Inspector Name Role Phone Marcio Devlin DO Primary Care Provider [phone] Reason for Referral * Occupational Therapy (Routine) - Closed Specialty Diagnoses / Procedures Referred By Missy escalera Referred To Contact Occupational Therapy Diagnoses Inflammatory arthropathy Arthralgia of both hands Camila Alex MD [facility] [place] [address] [facility] [address] [place] [address] Referral ID Status Reason Start Date Expiration Date V isits Requested Visits Authorized [id number] Closed Evaluate and Treat 01/28/2023 01/28/2024 100 100 Encounter Details Date Type Department Care Team (Latest Contact Info) Description 01/28/2023 2:30 PM EDT Procedure [place] [address] Camila Alex MD [facility] [place] [address] Ankylosing spondylitis of cervical region; [...] Images are available on the Rheumatology Image Special Effects Designer Archive. Images of the right hand demonstrate [...] EDT Hospital Encounter Non-Invasive [place] [address] Arrived 04/29/2024 9:50 AM [place] [address] Luis Alfredo Velazquez MD [facility] [place] [address] 04/29/2024 9:50 AM [place] [address]1000 Luis Alfredo Velazquez MD [facility] [place] [address] 06/07/2024 2:30 PM EDT TH Visit (TeleHealth) Gastroenterology at [place] [phone] Dajuan Rachel MD [facility] [place] [address] 07/02/2024 2:00 PM EDT Appointment Non-Invasive Cardiology Lab [place] [phone] Luis Alfredo Velazquez MD [facility] [place] [address] 07/02/2024 4:00 PM EDT Office Visit Cardiology at [place] [phone] Mars Green PA [facility] [place] [address] 07/02/2024 4:40 PM EDT Office Visit Cardiology at [address] [phone] Luis Alfredo Velazquez MD [facility] [place] [address] Scheduled Referrals Name Type Priority Associated Diagnoses [...] who have questions please contact the health certified caregiver that requested your imaging first. ? Electronically signed by: Anusha Ledezma MD, [facility] ([phone]), at 01/29/2023 7:29 AM Narrative 01/29/2023 7:29 [...] patients who have questions please contactthe health certified caregiver that requested your imaging first. Electronically signed by: Anusha Ledezma MD, [facility]([phone]), at 01/29/2023 7:29 AM Lola Issac Haley DO IMG DX ORDERABLES * XR [...] who have questions please contact the health certified caregiver that requested your imaging first. ? Electronically signed by: JERALD CARNEY MD, [facility] ??([phone]), at 01/28/2023 4:20 PM Narrative 01/28/2023 4:20 [...] bilateral sacroiliac joints, present on prior MRI [id number]. No fracture. Pubic symphysis is congruent with [...] patients who have questions please contactthe health certified caregiver that requested your imaging first. Lola [...] spondylitis documented in this encounter Care Teams Live Ammunition Inspector Relationship Specialty Start Date End Date Marcio Devlin DO [address] [place] [address] PCP - General Family Medicine 11/11/17 documented as of this encounter
--- OUTSIDE RECORDS SUMMARY | 2024-04-16 00:23 | XMS_ITS | Encounter Summary ---
Author Organization [facility] [address] Care Team Providers Care Polisher Balance Screwhead Name Role Phone Marcio Devlin DO Primary Care Provider [phone] Reason for Visit * Reason Comments Follow-up Encounter Details Date Type Department Care Team (Late st Contact Info) Description 03/06/2023 9:30 AM EDT Office [place] [phone] Gabe Fong MD [facility] [place] [address] Ulcerative colitis without complications, unspecified location; Ankylosing [...] AM EDT Hospital Encounter Non-[place] [address] Arrived 04/29/2024 9:50 AM EDT Appointment MRI at [place] [phone] Luis Alfredo Velazquez MD [facility] [address] 04/29/2024 9:50 AM [place] [address] Luis Alfredo Velazquez MD [facility] [place] [address] 06/07/2024 2:30 PM EDT TH Visit (TeleHealth) [place] [phone] Dajuan Rachel MD [facility] [place] [address] 07/02/2024 2:00 PM EDT Appointment Non-[place] [address] Luis Alfredo Velazquez MD [facility] [place] [address] 07/02/2024 4:00 PM EDT Office Visit Cardiology at [address] [phone] Mars Green PA [facility] [place] [address] 07/02/2024 4:40 PM EDT Office Visit Cardiology at [address] [phone] Luis Alfredo Velazquez MD [facility] [place] [address] documented as of this encounter Visit Diagnoses Diagnosis Ulcerative colitis without complications, unspecified location Ankylosing spondylitis of cervical region Ankylosing spondylitis Medication monitoring encounter Encounter for therapeutic drug monitoring High risk medication use Encounter for long-term (current) use of other medications documented in this encounter Care Teams Polisher Balance Screwhead Relationship Specialty Start Date End Date Marcio Dvelin DO 4 [place] [address] PCP - General Family Medicine 11/11/17 documented as of this encounter
--- OUTSIDE RECORDS SUMMARY | 2024-04-16 00:23 | XMS_ITS | Encounter Summary ---
Author Organization [facility] [place] [address] Care Team Providers Care Naval Inspector Name Role Phone Marcio Devlin DO Primary Care Provider [phone] Encounter Details Date Type Department Care Team (Latest Contact Info) Description 12/02/2022 9:00 AM EDT TH Visit (TeleHealth) [place] [address] Gabe Fong MD [facility] [address] [place] [place] [address] Ankylosing spondylitis of cervical region; Ulcerative colitis [...] increased work of breathing AO x3 Hands shnr-qmqycnak-vhoc PIP swelling pointing to the PIPs as [...] methotrexate-will not help with axial symptoms -Ultrasound yzpr-brmbnk-bv clinic High risk medication high feng of [...] AM EDT Hospital Encounter Non-Invasive Cardiology Lab [place] [phone] Arrived 04/29/2024 9:50 AM EDT Appointment MRI at [place] [address] Luis Alfredo Velazquez MD [facility] [place] [address] 04/29/2024 9:50 AM EDT Appointment MRI at [place] [phone] Luis Alfredo Velazquez MD [facility] [place] [address] 06/07/2024 2:30 PM EDT TH Visit (TeleHealth) Gastroenterology at [place] [address] Dajuan Rachel MD [facility] [place] [address] 07/02/2024 2:00 PM EDT Appointment Non-Invasive Cardiology Lab [place] [phone] Luis Alfredo Velazquez MD [facility] [place] [address] 07/02/2024 4:00 PM EDT Office Visit Cardiology at [address] [phone] Mars Green PA [facility] [place] [address] 07/02/2024 4:40 PM EDT Office Visit Cardiology at [address] [phone] Luis Alfredo Velazquez MD [facility] [place] [address] documented as of this encounter Visit Diagnoses Diagnosis Ankylosing spondylitis of cervical region Ankylosing spondylitis Ulcerative colitis without complications, unspecified location High risk medication use Encounter for long-term (current) use of other medications Primary osteoarthritis of both hips Primary localized osteoarthrosis, pelvic region and thigh 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
--- OUTSIDE RECORDS SUMMARY | 2024-04-16 00:23 | XMS_ITS | Encounter Summary ---
Author Organization [facility] [place] [address] Care Team Providers Care Town Planner Name Role Phone Marcio Devlin DO Primary Care Provider [phone] Reason for Visit * Reason Comments Specialty Pharmacy Review Ustekinumab (S telara) 90 mg/mL subcutaneous injection Encounter Details Date Type Department Care Team (Late st Contact Info) Description 10/11/2022 Specialty Pharmacy [place] [address] Alison Ortiz, [facility] Social History Tobacco Use Types Packs/Day [...] Ortiz - 10/11/2022 11:59 PM EST The [facility] has completed a benefits investigation for Kim Funes to review their eligibility to fill at [facility]. Per patient's medication list they are prescribed Ustekinumab (Stelara) and the medication is not able to be filled at the [facility]. Kim Funes must fill with [facility] under current insurance plan's mandate. documented in this encounter Plan of Treatment Upcoming Encounters Date Type Department Care Team (Late st Contact Info) Description 04/19/2024 10:00 AM EDT Hospital Encounter Non-[place] [address] Arrived 04/29/2024 9:50 AM EDT [place] [address] Luis Alfredo Velazquez MD [facility] [place] [address] 04/29/2024 9:50 AM EDT Appointment MRI at [place] [address] Luis Alfredo Velazquez MD [facility] [place] [address] 06/07/2024 2:30 PM EDT TH Visit (TeleHealth) Gastroenterology at [place] [address] Dajuan Rachel MD [facility] [place] [address] 07/02/2024 2:00 PM EDT Appointment Non-Invasive Cardiology Lab [address]1000 Luis Alfredo Velazquez MD [facility] [place] [address] 07/02/2024 4:00 PM EDT Office Visit Cardiology at [address]1000 Mars Green PA [facility] [place] [address] 07/02/2024 4:40 PM EDT Office Visit Cardiology at [address]1000 Luis Alfredo Velazquez MD [facility] [place] [address] documented as of this encounter Visit Diagnoses Not on filedocumented in this encounter Care Teams Town Planner Relationship Specialty Start Date End Date Marcio Devlin DO [address] [place] [address] PCP - General Family Medicine 11/11/17 documented as of this encounter
--- OUTSIDE RECORDS SUMMARY | 2024-04-16 00:23 | XMS_ITS | Encounter Summary ---
Author Organization [facility] [place] [address] Care Team Providers Care Manager Oracle Retail Name Role Phone Marcio Devlin DO Primary Care Provider [phone] Encounter Details Date Type Department Care Team [...] AM EDT Hospital Encounter Non-Invasive [place] [address] Arrived 04/29/2024 9:50 AM EDT Appointment MRI at [place] [address] Luis Alfredo Velazquez MD [facility] [place] [address] 04/29/2024 9:50 AM EDT [place] [address] Luis Alfredo Velazquez MD [facility] [place] [address] 06/07/2024 2:30 PM EDT TH Visit (TeleHealth) Gastroenterology at [place] [phone] Dajuan Rachel MD [facility] [place] [address] 07/02/2024 2:00 PM EDT Appointment Non-Invasive Cardiology [place] [address] Luis Alfredo Velazquez MD [facility] [place] [place] [address] 07/02/2024 4:00 PM EDT Office [place] [address] Mars Green PA [facility] [place] [address] 07/02/2024 4:40 PM EDT Office Visit Cardiology at [address] [phone] Luis Alfredo Velazquez MD [facility] [place] [address] documented as of this encounter Visit Diagnoses Not on filedocumented in this encounter Care Teams Manager Oracle Retail Relationship Specialty Start Date End Date Marcio Devlin DO 4 [place] [address] PCP - General Family Medicine 11/11/17 documented as of this encounter
--- OUTSIDE RECORDS SUMMARY | 2024-04-16 00:23 | XMS_ITS | Encounter Summary ---
Author Organization [facility] [place] [address] Care Team Providers Care Hand I Thermal Cutter Name Role Phone Marcio Devlin DO Primary Care Provider [phone] Encounter Details Date Type Department Care Team [...] AM EDT Hospital Encounter Non-Invasive [place] [address] Arrived 04/29/2024 9:50 AM EDT Appointment MRI at [place] [address] Luis Alfredo Velazquez MD [facility] [place] [address] 04/29/2024 9:50 AM [place] [address] Luis Alfredo Velazquez MD [facility] [place] [address] 06/07/2024 2:30 PM EDT TH Visit (TeleHealth) Gastroenterology at [place] [phone] Dajuan Rachel MD [facility] [place] [address] 07/02/2024 2:00 PM EDT Appointment Non-Invasive Cardiology [place] [address] Luis Alfredo Velazquez MD [facility] [place] [address] 07/02/2024 4:00 PM EDT Office [place] [address] Mars Green PA [facility] [place] [address] 07/02/2024 4:40 PM EDT Office Visit Cardiology at [address] [phone] Luis Alfredo Velazquez MD [facility] [place] [address] documented as of this encounter Visit Diagnoses Not on filedocumented in this encounter Care Teams Hand I Thermal Cutter Relationship Specialty Start Date End Date Marcio Devlin DO [address] [place] [address] PCP - General Family Medicine 11/11/17 documented as of this encounter
--- OUTSIDE RECORDS SUMMARY | 2024-04-16 00:23 | XMS_ITS | Encounter Summary ---
Author Organization [facility] [place] [address] Care Team Providers Care Inspector Fibrous Wallboard Name Role Phone Marcio Devlin DO Primary Care Provider [phone] Reason for Visit * Reason Comments Prior Authorization Rinvoq 15mg Tablet Encounter Details Date Type Department Care Team (Late st Contact Info) Description 03/14/2023 Specialty [place] [address] Thelma Teran, [facility] Social History Tobacco Use Types [...] Kim Funes Patient : 1960 Patient Address: [address] [place] [id number] (home) Medication Name: RINVOQ 15 MG TABLET,EXTENDED RELEASE Medication ID: [id number] Subscriber Insurance: [employer] ([facility]) Subscriber Insurance Comment: Fax: Physician: NOEL ADEN Physician Comment: Sent Via: Fax Truong: Ref/Harmeet/YURIY#: EOC ID: [id number] Medication Strength Frequency Requested: Rinvoq 15mg Tablet [...] RINVOQ 15 MG TABLET,EXTENDED RELEASE Medication ID: [id number] Approval Dates: 03/14/2023 to 09/13/2023 Insurance requirements/notes: - Patient must fill with [facility]. Other Notes: None Case/Reference #: [id number] Approval notification Received via: Fax Copay: Unknown - Patient must fill with outside pharmacy Copay assistance: None Copay Notes: NA Insurance mandated Pharmacy: [facility] Fillable at [facility] Specialty Pharmacy: No Patient Notified: Left Voicemessage Pharmacy staff will be reaching out to the patient to inform them of their medication's [facility]. If applicable, a pharmacist will speak with the patient to offer our specialty pharmacy services and to arrange delivery of their medication. Thelma Teran 03/17/23 10:06 AM documented in this encounter Plan of Treatment Upcoming Encounters Date Type Department Care Team (Late st Contact Info) Description 04/19/2024 10:00 AM EDT Hospital Encounter Non-Invasive [place] [address] Arrived 04/29/2024 9:50 AM EDT [place] [address] Luis Alfredo Velazquez MD [facility] [place] [address] 04/29/2024 9:50 AM EDT Appointment MRI at [place] [address] Luis Alfredo Velazquez MD [facility] [place] [address] 06/07/2024 2:30 PM EDT TH Visit (TeleHealth) Gastroenterology at [place] [address] Dajuan Rachel MD [facility] [place] [address] 07/02/2024 2:00 PM EDT Appointment Non-Invasive Cardiology Lab [place] [address] Luis Alfredo Velazquez MD [facility] [place] [address] 07/02/2024 4:00 PM EDT Office Visit Cardiology at [place] [address] Mars Green, YURI[facility] [place] [address] 07/02/2024 4:40 PM EDT Office Visit Cardiology at [place] [address] Luis Alfredo Velazquez MD [facility] [address] documented as of this encounter Visit Diagnoses Not on filedocumented in this encounter Care Teams Inspector Fibrous Wallboard Relationship Specialty Start Date End Date Marcio Devlin DO [address] [place] [address] PCP - General Family Medicine 11/11/17 documented as of this encounter
--- OUTSIDE RECORDS SUMMARY | 2024-04-16 00:23 | XMS_ITS | Encounter Summary ---
Author Organization [facility] [place] [address] Care Team Providers Care Foxing Closer Name Role Phone Macrio Devlin DO Primary Care Provider [phone] Encounter Details Date Type Department Care Team (Late st Contact Info) Description 03/25/2023 [place] [address] Francisca Olivas, [facility] Social History Tobacco Use Types Packs/Day [...] Hospital Encounter Non-Invasive Cardiology Lab [place] [phone] Arrived 04/29/2024 9:50 AM EDT Appointment MRI at [address]1000 Luis Alfredo Velazquez MD [facility] [place] [address] 04/29/2024 9:50 AM EDT Appointment MRI at [place] [phone] Luis Alfredo Velazquez MD [facility] [place] [address] 06/07/2024 2:30 PM EDT TH Visit (TeleHealth) Gastroenterology at [place] [phone] Dajuan Rachel MD [facility] [place] [address] 07/02/2024 2:00 PM EDT Appointment Non[place] [address] Luis Alfredo Velazquez MD [facility] [place] [address] 07/02/2024 4:00 PM EDT Office Visit Cardiology at [place] [phone] Mars Green PA [facility] [place] [place] [address] 07/02/2024 4:40 PM EDT Office Visit Cardiology at [address] [address] Luis Alfredo Velazquez MD [facility] [place] [address] documented as of this encounter Visit Diagnoses Not on filedocumented in this encounter Care Teams Foxing Closer Relationship Specialty Start Date End Date Marcio Devlin DO [address] [place] [address] PCP - General Family Medicine 11/11/17 documented as of this encounter
--- OUTSIDE RECORDS SUMMARY | 2024-04-16 00:23 | XMS_ITS | Encounter Summary ---
Author Organization [facility] [place] [address] Care Team Providers Care Land Surveying Manager Name Role Phone Marcio Devlin DO Primary Care Provider [phone] Reason for Visit * Reason Comments Specialty Pharmacy Review Ustekinumab (S telara) 90mg/mL Syringe Encounter Details Date Type Department Care Team (Late st Contact Info) Description 12/02/2022 Specialty Pharm[place] [address] Alison Ortiz, [facility] Social History Tobacco Use Types Packs/Day [...] as of this encounter Progress Notes * Alisno Ortiz - 12/02/2022 11:59 PM EDT The - Specialty Pharmacy has completed a benefits investigation for Kim Funes to review their eligibility to fill at [facility]. Per patient's medication list they are prescribed Ustekinumab (Stelara) and the medication is not able to be filled at the [facility]. Kim Funes must fill with [facility] under current insurance plan's mandate. documented in this encounter Plan of Treatment Upcoming Encounters Date Type Department Care Team (Late st Contact Info) Description 04/19/2024 10:00 AM EDT Hospital Encounter Non-Invasive [place] [address] Arrived 04/29/2024 9:50 AM EDT [place] [address] Luis Alfredo Velazquez MD [facility] [place] [address] 04/29/2024 9:50 AM EDT Appointment MRI at [place] [address] Luis Alfredo Velazquez MD [facility] [place] [address] 06/07/2024 2:30 PM EDT TH Visit (TeleHealth) Gastroenterology at [place] [address] Dajuan Rachel MD [facility] [place] [address] 07/02/2024 2:00 PM EDT Appointment Non-Invasive Cardiology Lab [address]1000 Luis Alfredo Velazquez MD [facility] [place] [address] 07/02/2024 4:00 PM EDT Office Visit Cardiology at [address]1000 [place] [facility] [place] [address] 07/02/2024 4:40 PM EDT Office Visit Cardiology at [address]1000 Luis Alfredo Velazquez MD [facility] [place] [address] documented as of this encounter Visit Diagnoses Not on filedocumented in this encounter Care Teams Land Surveying Manager Relationship Specialty Start Date End Date Marcio Devlin DO [address] [place] [address] PCP - General Family Medicine 11/11/17 documented as of this encounter
--- OUTSIDE RECORDS SUMMARY | 2024-04-16 00:23 | XMS_ITS | Encounter Summary ---
Author Organization Replaced By [facility] [place] [address] Care Team Providers Care Shellfish Manager Name Role Phone Marcio Devlin DO Primary Care Provider [phone] Reason for Visit * Reason Comments Specialty Pharmacy Review Ustekinumab (S telara) 90mg/mL Syringe Encounter Details Date Type Department Care Team (Late st Contact Info) Description 01/28/2023 Specialty [place] [address] Alison Ortiz, [facility] Social History Tobacco Use Types [...] Ortiz - 01/28/2023 11:59 PM EDT The [facility] has completed a benefits investigation for Kim Fuens to review their eligibility to fill at [facility]. Per patient's medication list they are prescribed Stelara and the medication is not able to be filled at the [facility]. Kim Funes must fill with Stelara under current insurance plan's mandate. documented in this encounter Plan of Treatment Upcoming Encounters Date Type Department Care Team (Late st Contact Info) Description 04/19/2024 10:00 AM EDT Hospital Encounter [place] [address] Arrived 04/29/2024 9:50 AM EDT [place] [address] Luis Alfredo Velazquez MD [facility] [address] 04/29/2024 9:50 AM EDT Appointment MRI at [place] [address] Luis Alfredo Velazquez MD [facility] [place] [address] 06/07/2024 2:30 PM EDT TH Visit (TeleHealth) Gastroenterology at [place] [address] Dajuan Rachel MD [facility] [place] [address] 07/02/2024 2:00 PM EDT Appointment Non-Invasive Cardiology Lab [address]1000 Luis Alfredo Velazquez MD [facility] [place] [address] 07/02/2024 4:00 PM EDT Office Visit Cardiology at [address] [place] [facility] [place] [address] 07/02/2024 4:40 PM EDT Office Visit Cardiology at [address] Luis Alfredo Velazquez MD [facility] [place] [address] documented as of this encounter Visit Diagnoses Not on filedocumented in this encounter Care Teams Shellfish Manager Relationship Specialty Start Date End Date Marcio Devlin DO [address] [place] [address] PCP - General Family Medicine 11/11/17 documented as of this encounter
--- OUTSIDE RECORDS SUMMARY | 2024-04-16 00:24 | XMS_ITS | Encounter Summary ---
Author Organization Formerly [facility], Later [facility] [place] [address] Care Team Providers Care Brusher Operator Name Role Phone Marcio Devlin DO Primary Care Provider [phone] Encounter Details Date Type Department Care Team (Latest Contact Info) Description 05/10/2022 10:30 AM EDT TH Visit (TeleHealth) [place] [address] Gabe Fong MD [facility] [address] [place] [address] Ankylosing spondylitis of cervical region; Ulcerative colitis [...] AM EDT Hospital Encounter Non-Invasive Cardiology Lab [place] [phone] Arrived 04/29/2024 9:50 AM EDT Appointment MRI at [address]1000 Luis Alfredo Velazquez MD [facility] [place] [address] 04/29/2024 9:50 AM EDT Appointment MRI at [address]1000 Luis Alfredo Velazquez MD [facility] [place] [address] 06/07/2024 2:30 PM EDT TH Visit (TeleHealth) [place] [address] Dajuan Rachel MD [facility] [place] [address] 07/02/2024 2:00 PM EDT Appointment Non-Invasive Cardiology Lab [place] [phone] Luis Alfredo Velazquez MD [facility] [place] [address] 07/02/2024 4:00 PM EDT Office Visit Cardiology at [place] [phone] [place] [facility] [place] [address] 07/02/2024 4:40 PM EDT Office Visit Cardiology at [address] [address] Luis Alfredo Velazquez MD [facility] [place] [address] documented as of this encounter Visit Diagnoses [...] location documented in this encounter Care Teams Brusher Operator Relationship Specialty Start Date End Date Marcio Devlin DO [address] [place] [address] PCP - General Family Medicine 11/11/17 documented as of this encounter
--- OUTSIDE RECORDS SUMMARY | 2024-04-16 00:24 | XMS_ITS | Encounter Summary ---
Author Organization Formerly [facility] [place] [address] Care Team Providers Care Extrusion Supervisor Name Role Phone Marcio Devlin DO Primary Care Provider [phone] Encounter Details Date Type Department Care Team [...] AM EDT Hospital Encounter Non-[place]vasive [place] [address] Arrived 04/29/2024 9:50 AM EDT Appointment MRI at [place] [address] Luis Alfredo Velazquez MD [facility] [place] [address] 04/29/2024 9:50 AM EDT [place] [address] Luis Alfredo Velazquez MD [facility] [place] [address] 06/07/2024 2:30 PM EDT TH Visit (TeleHealth) Gastroenterology at [address]1000 Dajuan Rachel MD [facility] [place] [address] 07/02/2024 2:00 PM EDT Appointment Non-Invasive [place] [address] Luis Alfredo Velazquez MD [facility] [place] [address] 07/02/2024 4:00 PM EDT Office [place] [address] [place] [facility] [place] [address] 07/02/2024 4:40 PM EDT Office Visit Cardiology at [address] [phone] Luis Alfredo Velazquez MD [facility] [place] [address] documented as of this encounter Visit Diagnoses Not on filedocumented in this encounter Care Teams Extrusion Supervisor Relationship Specialty Start Date End Date Marcio Devlin DO [address] [place] [address] PCP - General Family Medicine 11/11/17 documented as of this encounter
--- OUTSIDE RECORDS SUMMARY | 2024-04-16 00:24 | XMS_ITS | Encounter Summary ---
Author Organization [facility] Address [facility] [place] [address] Care Team Providers Care X Ray Electronics Wiring Technician Name Role Phone Marcio Devlin DO Primary Care Provider [phone] Encounter Details Date Type Department Care Team (Late st Contact Info) Description 02/12/2022 Telephone [place] [phone] Gabe Fong MD [facility] [place] [address] Social History Tobacco Use Types Packs/Day Years [...] EDT Hospital Encounter [place] [address] Arrived 04/29/2024 9:50 AM EDT Appointment MRI at [place] [address] Luis Alfredo Velazquez MD [facility] [place] [address] 04/29/2024 9:50 AM EDT Appointment MRI at [place] [address] Luis Alfredo Velazquez MD [facility] [place] [address] 06/07/2024 2:30 PM EDT TH Visit (TeleHealth) Gastroenterology at [place] [address] Dajuan Rachel MD [facility] [place] [address] 07/02/2024 2:00 PM EDT Appointment [place] [address] Luis Alfredo Velazquez MD [facility] [place] [address] 07/02/2024 4:00 PM EDT Office Visit Cardiology at [address]1000 [place] [facility] [place] [address] 07/02/2024 4:40 PM EDT Office Visit Cardiology at [address] [address] Luis Alfredo Velazquez MD [facility] [place] [address] documented as of this encounter Visit Diagnoses Not on filedocumented in this encounter Care Teams X Ray Electronics Wiring Technician Relationship Specialty Start Date End Date Marcio Devlin DO [address] [place] [address] PCP - General Family Medicine 11/11/17 documented as of this encounter
--- OUTSIDE RECORDS SUMMARY | 2024-04-16 00:24 | XMS_ITS | Encounter Summary ---
Author Organization [facility] [place] [address] Care Team Providers Care Control Board Operator Name Role Phone Marcio Devlin DO Primary Care Provider [phone] Reason for Visit * Reason Comments Specialty Pharmacy Review Ustekinumab (S telara) 90mg/mL Syringe Encounter Details Date Type Department Care Team (Late st Contact Info) Description 05/10/2022 Specialty [place] [address] Alison Ortiz, [facility] [...] their eligibility to fill at [facility]. Per patient's medication list they are prescribed Ustekinumab (Stelara) and the medication is not able to be filled at the [facility]. Kim Funes must fill with [facility] under current insurance plan's mandate. documented in this encounter Plan of Treatment Upcoming Encounters Date Type Department Care Team (Late st Contact Info) Description 04/19/2024 10:00 AM EDT Hospital Encounter Non-[place] [address] Arrived 04/29/2024 9:50 AM EDT [place] [address] Luis Alfredo Velazquez MD [facility] [place] [address] 04/29/2024 9:50 AM EDT Appointment MRI at [place] [address] Luis Alfredo Velazquez MD [facility] [place] [address] 06/07/2024 2:30 PM EDT TH Visit (TeleHealth) Gastroenterology at [place] [address] Dajuan Rachel MD [facility] [place] [address] 07/02/2024 2:00 PM EDT Appointment Non-Invasive Cardiology Lab [address]1000 Luis Alfredo Velazquez MD [facility] [place] [address] 07/02/2024 4:00 PM EDT Office Visit Cardiology at [address]1000 [place] [facility] [place] [address] 07/02/2024 4:40 PM EDT Office Visit Cardiology at [address]1000 Luis Alfredo Velazquez MD [facility] [place] [address] documented as of this encounter Visit Diagnoses Not on filedocumented in this encounter Care Teams Control Board Operator Relationship Specialty Start Date End Date Marcio Devlin DO [address] [place] [address] PCP - General Family Medicine 11/11/17 documented as of this encounter
--- OUTSIDE RECORDS SUMMARY | 2024-04-16 00:24 | XMS_ITS | Encounter Summary ---
Author Organization [facility] [place] [address] Care Team Providers Care Registration Officer Name Role Phone Marcio Devlin DO Primary Care Provider [phone] Encounter Details Date Type Department Care Team [...] AM EDT Hospital Encounter Non-[place] [address] Arrived 04/29/2024 9:50 AM EDT Appointment MRI at [place] [address] Luis Alfredo Velazquez MD [facility] [place] [address] 04/29/2024 9:50 AM EDT [place] [address] Luis Alfredo Velazquez MD [facility] [place] [address] 06/07/2024 2:30 PM EDT TH Visit (TeleHealth) Gastroenterology at [address]1000 Dajuan Rachel MD [facility] [place] [address] 07/02/2024 2:00 PM EDT Appointment [facility] [place] [address] Luis Alfredo Velazquez MD [facility] [place] [address] 07/02/2024 4:00 PM EDT Office [place] [address] [place] [facility] [place] [address] 07/02/2024 4:40 PM EDT Office Visit Cardiology at [address] [address] Luis Alfredo Velazquez MD [facility] [place] [address] documented as of this encounter Visit Diagnoses Not on filedocumented in this encounter Care Teams Registration Officer Relationship Specialty Start Date End Date Marcio Devlin DO [address] [place] [address] PCP - General Family Medicine 11/11/17 documented as of this encounter
--- OUTSIDE RECORDS SUMMARY | 2024-04-16 00:24 | XMS_ITS | Encounter Summary ---
Author Organization [facility] [place] [address] Care Team Providers Care Mathematics Lecturer Name Role Phone Marcio Devlin DO Primary Care Provider [phone] Encounter Details Date Type Department Care Team (Late st Contact Info) Description 05/07/2022 4:00 PM EDT Ancillary Procedure Radiology XRay at [facility] [address] [place] [phone] Jorje Marquez DO [address] [place] [address] Chronic bilateral low back pain without sciatica; [...] AM EDT Hospital Encounter Non-Invasive [place] [address] Arrived 04/29/2024 9:50 [place] [address] Luis Alfredo Velazquez MD [facility] [place] [address] 04/29/2024 9:50 [place] [address] Luis Alfredo Velazquez MD [facility] [place] [address] 06/07/2024 2:30 PM EDT TH Visit (TeleHealth) [place] [address] Dajuan Rachel MD [facility] GASTROENTEROLOGY [place], [place] [address] 07/02/2024 2:00 PM EDT Appointment Non-Invasive Cardiology Lab [place] [phone] Luis Alfredo Velazquez MD [facility] [place] [address] 07/02/2024 4:00 PM EDT Office Visit Cardiology at [address] [address] [place] [facility] [place] [address] 07/02/2024 4:40 PM EDT Office Visit Cardiology at [address] [address] Luis Alfredo Velazquez MD [facility] [place] [address] documented as of this encounter Procedures Procedure [...] have questions please contact the health care attendant that requested your imaging first. ? Narrative [...] who have questions please contactthe health care attendant that requested your imaging first. Jorje Marquez [...] have questions please contact the health care attendant that requested your imaging first. ? Narrative 05/07/2022 4:22 PM EDT EXAMINATION: XR LUMBAR SPINE 2 OR 3 VIEWS (GENERIC) CLINICAL HISTORY: chronic low back pain hx ankylosing spondylitis TECHNIQUE: Lumbar spine AP and lateral COMPARISON: August 24, 2015 FINDINGS: There are five bnw-ojl-bavjcfp lumbar-type vertebrae. The osseous structures are diffusely [...] August 24, 2015 FINDINGS: There are five nse-tuc-uszjonz lumbar-type vertebrae. The osseous structures are diffusely [...] who have questions please contactthe health care attendant that requested your imaging first. Jorje Marquez DO IMG DX ORDERABLES documented in this encounter Visit Diagnoses Diagnosis Chronic bilateral low back pain without sciatica Ankylosing spondylitis of multiple sites in spine Ankylosing spondylitis Chronic bilateral thoracic back pain documented in this encounter Care Teams Mathematics Lecturer Relationship Specialty Start Date End Date Marcio Devlin DO [address] [facility] [place] [address] PCP - General Family Medicine 11/11/17 documented as of this encounter
--- OUTSIDE RECORDS SUMMARY | 2024-04-16 00:24 | XMS_ITS | Encounter Summary ---
Author Organization [facility] [address] Care Team Providers Care Sound Art Instructor Name Role Phone Marcio Devlin DO Primary Care Provider [phone] Reason for Visit * Reason Comments Prior Authorization Stelara 90mg/ml SOSY Encounter Details Date Type Department Care Team (Late st Contact Info) Description 08/19/2022 Specialty Pharmacy [place] [phone] Tiff Anglin, [facility] Social History Tobacco Use Types Packs/Day [...] this encounter Progress Notes * Tiff Anglin [facility] - 08/19/2022 2:54 PM EST [facility] Specialty Pharmacy, Medication Prior Authorization Submission Patient: Kim Funes Patient : 1960 Patient Address: [address] [place] [phone] (home) Medication Name: STELARA 90 MG/ML SUBCUTANEOUS SYRINGE Medication ID: [id number] Subscriber Insurance: [email or web address] ([facility]) Subscriber Insurance Comment: Phone: [phone] Fax: Physician: Dajuan BERRY Physician Comment: Sent Via: Fax Truong: Ref/Case/PA#: [id number] Medication Strength Frequency Requested: Stelara 90mg/ml SOSY, Inject 1ml (90mg) subcutaneously once every 56 days. Qty/Day Supply: New Start: Renewal Diagnosis & ICD-10 Code: Ulcerative pancolitis without complication (K51.00) Patient Notified: No Submission Notes: - PA submitted through [employer] PA for Stelara 90mg/ml SOSY, qty . EOC# [id number] Tiff Anglin CPHT 08/19/22 2:58 PM * Tiff Anglin [facility] - 08/19/2022 2:54 PM EST D- Specialty Pharmacy, Prior Authorization Approval Medication Name: STELARA 90 MG/ML SUBCUTANEOUS SYRINGE Medication ID: [id number] Approval Dates: 08/21/2022 to 08/20/2023 Insurance requirements/notes: - Patient mandated to fill with [facility]. Other Notes: - PA approved for Stelara 90mg/ml SOSY, qty through 08/20/23. Case/Reference #: [id number] Approval notification Received via: Fax Copay: unknown [...] AM EDT Hospital Encounter Non-[place] [address] Arrived 04/29/2024 9:50 AM EDT [place]ment [place] [address] Luis Alfredo Velazquez MD [facility] [place] [address] 04/29/2024 9:50 [place] [address] Luis Alfredo Velazquez MD [facility] [place] [address] 06/07/2024 2:30 PM EDT TH Visit (TeleHealth) Gastroenterology at [place] [address] Dajuan Berry MD [facility] [place] [address] 07/02/2024 2:00 PM EDT Appointment Non-Invasive Cardiology Lab [address]1000 Luis Alfredo Velazquez MD [facility] [place] [address] 07/02/2024 4:00 PM EDT [place] [address] [place] [facility] [place] [address] 07/02/2024 4:40 PM EDT Office Visit Cardiology at [address]1000 Luis Alfredo Velazquez MD [facility] [place] [address] documented as of this encounter Visit Diagnoses Not on filedocumented in this encounter Care Teams Sound Art Instructor Relationship Specialty Start Date End Date Marcio Devlin DO [address] [place] [address] PCP - General Family Medicine 11/11/17 documented as of this encounter
--- OUTSIDE RECORDS SUMMARY | 2024-04-16 00:24 | XMS_ITS | Encounter Summary ---
Author Organization [facility] [place] [address] Care Team Providers Care Home Paraprofessional Name Role Phone Marcio Devlin DO Primary Care Provider [phone] Reason for Visit * Auth/Cert (Routine) Specialty Diagnoses / Procedures Referred By Contlyn t Referred To Contact Diagnoses Restaging UC since changing to Stelara 03/2021 Procedures PRO COLONOSCOPY, DIAGNOSTIC COLONOSCOPY, DIAGNOSTIC Dajuan Rachel MD [facility] [place] [address] [facility] Referral ID Status Reason Start Date Expiration Date Visits Re quested Visits Authorized [id number] 1 1 Encounter Details Date Type Department Care Team (Late st Contact Info) Description 09/24/2022 11:00 AM EST - 09/24/2022 12:00 PM EST [place] [address] Dajuan Rachel MD [facility] [place] [address] COLONOSCOPY FLEXIBLE, WITH BX (WRVU 3.56) Social [...] occurs, please contact your Doctor. Please call [phone] before 8pm Mon-Fri with problems, questions or concerns. If you call after 8pm or on weekends, call the Hospital at [phone] and ask to speak to the Cocoa Bean Roaster construction assistant and the vacuum evaporation operator will contact that person for you. [...] any problems. Where can you learn more? [facility] View your After Visit Summary and more online at [email or web address] If you would like to provide feedback about your hospital experience, please call the Office of Patient and Family Relations at . If you have received this After Visit Summary in error, please immediately return it in person to the department, or notify the [facility] Privacy Office by calling toll free at between the hours of 8AM and 5PM to arrange for our retrieval of the documents at no cost to you. Content Version: 12.2 ?? [phone] [employer]. Care instructions adapted under license by [facility]. If you have questions about a medical condition or this instruction, always ask your healthcare professional. [employer], [facility] disclaims any warranty or liability for your [...] by mouth daily. SUMAtriptan (IMITREX) 20 mg/actuation [place], Non-Aerosol 1 spray as needed. 11/03/2017 metFORMIN [...] - 09/24/2022 1:32 PM EST Kim Funes [address] [place] [phone] October 20, 2022 Dear : Biopsies taken [...] concerns or questions. Sincerely, Freddy Rachel MD [address] Justicesweetbread trimmer Co-Director, [facility] Section of Gastroenterology [place] [address] CC: Marcio Devlin DO [address] [place] [phone] documented in this encounter H&P Notes * [...] AM EDT Hospital Encounter Non-Invasive [place] [phone] Arrived 04/29/2024 9:50 [place] [phone] Luis Alfredo Velazquez MD [facility] [place] [address] 04/29/2024 9:50 [place] [phone] Luis Alfredo Velazquez MD [facility] [place] [address] 06/07/2024 2:30 PM EDT TH Visit (TeleHealth) Gastroenterology at [place] [phone] Dajuan Rachel MD [facility] [place] [address] 07/02/2024 2:00 PM EDT Appointment Non-Invasive Cardiology Lab [place] [phone] Luis Alfredo Velazquez MD [facility] [place] [address] 07/02/2024 4:00 PM EDT Office Visit Cardiology at [place] [phone] Mars Green PA [facility] [place] [address] 07/02/2024 4:40 PM EDT Office Visit Cardiology at [address] [phone] Luis Alfredo Velazquez MD [facility] [place] [address] documented as of this encounter Procedures Procedure Name Priority Date/Time Associated Diagnosis Comments SPECIMEN TO PATHOLOGY Routine 09/24/2022 12:43 PM EST SPECIMEN TO PATHOLOGY Routine 09/24/2022 12:43 PM EST SPECIMEN TO PATHOLOGY Routine 09/24/2022 12:43 PM EST SPECIMEN TO PATHOLOGY Routine 09/24/2022 12:43 PM EST SPECIMEN TO PATHOLOGY Routine 09/24/2022 12:43 PM EST SURGICAL PATHOLOGY REPORT Routine 09/24/2022 12:29 PM EST Colonoscopy, Remv Lesn, Snare ([id number]) 09/24/2022 12:05 PM EST Ulcerative pancolitis with complication Colonoscopy, Biopsy ([id number]) 09/24/2022 12:05 PM EST Ulcerative pancolitis with complication COLONOSCOPY Routine 09/24/2022 10:54 AM EST documented in this encounter Results * Specimen to Pathology (09/24/2022 12:43 PM EST) AP Specimen 09/24/2022 12:4 3 PM EST 09/24/2022 12:43 PM EST Narrative [facility] - 09/24/2022 12:43 PM EST Specimen requisition ordered. ??Separate Pathology report to follow L Jose Rachel MD PATHOLOGY/CYTOLOGY O IRMA Performing Organization Address [facility]/ZIP Co de Phone Number [facility] [place] [address] * Specimen to Pathology (09/24/2022 12:43 PM EST) AP Specimen 09/24/2022 12:4 3 PM EST 09/24/2022 12:43 PM EST Narrative [facility] - 09/24/2022 12:43 PM EST Specimen requisition ordered. ??Separate Pathology report to follow L Jose Rachel MD PATHOLOGY/CYTOLOGY O IRMA Performing Organization Address City/[facility]/[place] [address] * Specimen to Pathology (09/24/2022 12:43 PM EST) AP Specimen 09/24/2022 12:4 3 PM EST 09/24/2022 12:43 PM EST Narrative [facility] - 09/24/2022 12:43 PM EST Specimen requisition ordered. ??Separate Pathology report to follow L Jose Rachel MD PATHOLOGY/CYTOLOGY O IRMA Performing Organization Address [facility] [place] [address] * Specimen to Pathology (09/24/2022 12:43 PM EST) AP Specimen 09/24/2022 12:4 3 PM EST 09/24/2022 12:43 PM EST Narrative [facility] - 09/24/2022 12:43 PM EST Specimen requisition ordered. ??Separate Pathology report to follow L Jose Rachel MD PATHOLOGY/CYTOLOGY O IRMA Performing Organization Address [facility] [place] [address] * Specimen to Pathology (09/24/2022 12:43 PM EST) AP Specimen 09/24/2022 12:4 3 PM EST 09/24/2022 12:43 PM EST Narrative [facility] - 09/24/2022 12:43 PM EST Specimen requisition ordered. ??Separate Pathology report to follow L Jose Rachel MD PATHOLOGY/CYTOLOGY O IRMA Performing Organization Address [facility] [place] [address] * Surgical Pathology Report (09/24/2022 12:29 PM EST) Pathologist [facility] FINAL DIAGNOSIS (AP) [id number] ? Location: 4T; EA11; A The signing [...] MD Verified: ??09/27/2022 17:03 ??Pathologist Performed at: ??-[facility] Dept. of Pathology, [place] [address] Vegetable Picker: Dg Brown MD, FCAP, ??CLIA Certificate: [id number] SPECIMEN(S) SUBMITTED A - Targeted biopsies at hepatic flexure, biopsy (4) B - Hepatic flexure polyp, excision (1) C - Targeted biopsies at 37cm, biopsy (4) D - Targeted biopsies at 15cm, biopsy (4) E - Targeted biopsies at ano-rectal junction, biopsy (4) CLINICAL INFORMATION [id number] female with ulcerative colitis SPECIMEN PROCESSING A [...] labeled E1. ??nrl 09/27/2022 5:03 PM EST [facility] GI Biopsy 09/24/2022 12:2 9 PM EST 09/24/2022 12:29 PM EST GI Biopsy 09/24/2022 12:2 9 PM EST 09/24/2022 12:29 PM EST GI Biopsy 09/24/2022 12:2 9 PM EST 09/24/2022 12:29 PM EST GI Biopsy 09/24/2022 12:2 9 PM EST 09/24/2022 12:29 PM EST GI Biopsy 09/24/2022 12:2 9 PM EST 09/24/2022 12:29 PM EST L Jose Rachel MD PATHOLOGY/CYTOLOGY O RDERABLES [facility] [place] [address] * COLONOSCOPY (09/24/2022 10:54 AM EST) COLONOSCOPY [facility] ___ Procedure Date: 09/24/2022 10:54 AM ? Patient Name: Kim Funes ? Date of : 1960 ? Age: 62 ? Order #: [id number] ? Instrument Name: [id number]- [id number] ? ___ Procedure: ? Colonoscopy Indications: ? High risk colon cancer ? surveillance: Ulcerative colitis Patient Profile: ? This is a 62 year old female. This ? patient has ulcerative pancolitis, ? is taking ustekinumab and is ? experiencing mild symptoms. Providers: ? Freddy Rachel MD, Oksana Mendez, ? [place] Shah [...] preparation was evaluated ? using the BBPS ([place] Bowel ? Preparation Scale) with scores of: [...] er: Oksana Mendez RN)1210 (Given - Provider: kOsana Mendez RN)1213 (Given - Provider: Oksana Mendez [...] RN) documented in this encounter Care Teams Home Paraprofessional Relationship Specialty Start Date End Date Marcio Devlin DO [address] [place] [address] PCP - General Family Medicine 11/11/17 documented as of this encounter
--- OUTSIDE RECORDS SUMMARY | 2024-04-16 00:24 | XMS_ITS | Encounter Summary ---
Author Organization [facility] [place] [address] Care Team Providers Care Communication Studies Professor Name Role Phone Marcio Devlin DO Primary Care Provider [phone] Reason for Referral * Consultation (Routine) - Closed Specialty Diagnoses / Procedures Referred By Contlyn escalera Referred To Contact Pain Management Diagnoses Chronic left hip pain Ankylosing spondylitis of cervical region Neck pain Gabe Fong MD [facility] [address] [place] [address] Jorje Marquez DO [address] [facility] [place] [address] Referral ID Status Reason Start Date Expiration Date V isits Requested Visits Authorized [id number] Closed Consult, Test & Treat 03/22/2022 03/22/2023 1 1 Encounter Details Date Type Department Care Team (Late st Contact Info) Description 03/22/2022 9:30 AM EDT Office [place] [address] Gabe Fong MD [facility] [address] [place] [place] [address] Chronic left hip pain; Ankylosing spondylitis [...] back.She notes as a follow-up with the PRODUCTION SUPPORT ENGINEER/PA for this with me after the colonoscopy. [...] AM EDT Hospital Encounter Non-[place] [address] Arrived 04/29/2024 9:50 AM EDT Appointment MRI at [place] [address] Luis Alfredo Velazquez MD [facility] [place] [address] 04/29/2024 9:50 AM EDT Appointment MRI at [address] Luis Alfredo Velazquez MD [facility] [place] [address] 06/07/2024 2:30 PM EDT TH Visit (TeleHealth) Gastroenterology at [place] [address] Dajuan Rachel MD [facility] [place] [address] 07/02/2024 2:00 PM EDT Appointment Non-Invasive Cardiology Lab [address] Luis Alfredo Velazquez MD [facility] [place] [address] 07/02/2024 4:00 PM EDT Office Visit Cardiology at [place] [phone] Mars Green PA [facility] [place] [address] 07/02/2024 4:40 PM EDT Office Visit Cardiology at [address] [place] [address] Luis Alfredo Velazquez MD [facility] [place] [address] Scheduled Referrals Name Type Priority Associated Diagnoses [...] / FVC LLN 67 % COMPAS PFT JFI05-60 Actual Pre-BD 2.09 L/s COMPAS PFT PVY80-31 Pre-BD % of Predicted 91 % COMPAS PFT YNT78-51 Predicted 2.29 L/s COMPAS PFT CIG48-59 Pre-BD Z-Score -0.25 COMPAS PFT DLCO Hb [...] breath documented in this encounter Care Teams Communication Studies Professor Relationship Specialty Start Date End Date Marcio Devlin DO [facility] [place] [place] [address] PCP - General Family Medicine 11/11/17 documented as of this encounter
--- OUTSIDE RECORDS SUMMARY | 2024-04-16 00:24 | XMS_ITS | Encounter Summary ---
Author Organization [facility] [place] [address] Care Team Providers Care Business Reporter Name Role Phone Marcio Devlin DO Primary Care Provider Encounter Details Date Type Department Care Team (Latest Contact Info) Description 03/22/2022 1:57 PM EDT - 03/22/2022 11:59 PM EDT Hospital [place] [address] SOB (shortness of breath) Discharge [...] by mouth daily. SUMAtriptan (IMITREX) 20 mg/actuation [place], Non-Aerosol 1 spray as needed. 11/03/2017 metFORMIN [...] AM EDT Hospital Encounter Non-[place]vasive [place] [address] Arrived 04/29/2024 9:50 AM EDT Appointment MRI at [address] Luis Alfredo Velazquez MD [facility] [place] [address] 04/29/2024 9:50 AM [place] [address] Luis Alfredo Velazquez MD [facility] [place] [place] [address] 06/07/2024 2:30 PM EDT TH Visit (TeleHealth) [place] [phone] Dajuan Rachel MD [facility] [place] [address] 07/02/2024 2:00 PM EDT Appointment Non-Invasive [place] [phone] Luis Alfredo Velazquez MD [facility] [place] [address] 07/02/2024 4:00 PM EDT Office Visit Cardiology at [address] [phone] Mars Green PA [facility] [place] [address] 07/02/2024 4:40 PM EDT Office Visit Cardiology at [address] [phone] Luis Alfredo Velazquez MD [facility] [place] [address] documented as of this encounter Procedures Procedure [...] / FVC LLN 67 % COMPAS PFT VFP54-27 Actual Pre-BD 2.09 L/s COMPAS PFT IGJ07-95 Pre-BD % of Predicted 91 % COMPAS PFT MRZ95-36 Predicted 2.29 L/s COMPAS PFT TLT69-89 Pre-BD Z-Score -0.25 COMPAS PFT DLCO Hb [...] breath documented in this encounter Care Teams Business Reporter Relationship Specialty Start Date End Date Marcio Devlin DO [address] [facility] [place] [address] PCP - General Family Medicine 11/11/17 documented as of this encounter
--- OUTSIDE RECORDS SUMMARY | 2024-04-16 00:24 | XMS_ITS | Encounter Summary ---
Author Organization [facility] [address] Care Team Providers Care Director Medical Affairs Name Role Phone Marcio Devlin DO Primary Care Provider [phone] Encounter Details Date Type Department Care Team (Late st Contact Info) Description 09/10/2022 Telephone [place] [address] Lisa Dallas RN Social History [...] have an active approval with filling at [facility]. Kim will call [facility] again and see if she can get her medication. Requested she called back if not the case. She was due 08/20 for a dose. documented in this encounter Plan of Treatment Upcoming Encounters Date Type Department Care Team (Late st Contact Info) Description 04/19/2024 10:00 AM EDT Hospital Encounter Non-Invasive [place] [address] Arrived 04/29/2024 9:50 AM EDT [place] [phone] Luis Alfredo Velazquez MD [facility] [place] [address] 04/29/2024 9:50 AM EDT Appointment MRI at [place] [address] Luis Alfredo Velazquez MD [facility] [place] [address] 06/07/2024 2:30 PM EDT TH Visit (TeleHealth) Gastroenterology at [place] [address] Dajuan Rachel MD [facility] [place] [address] 07/02/2024 2:00 PM EDT Appointment Non-Invasive Cardiology Lab [place] [address] Luis Alfredo Velazquez MD [facility] [place] [address] 07/02/2024 4:00 PM EDT Office Visit Cardiology at [place] [address] Mars Green, YURIY [facility] [place] [address] 07/02/2024 4:40 PM EDT Office Visit Cardiology at [place] [address] Luis Alfredo Velazquez MD [facility] [place] [address] documented as of this encounter Visit Diagnoses Not on filedocumented in this encounter Care Teams Director Medical Affairs Relationship Specialty Start Date End Date Marcio Devlin DO [address] [place] [address] PCP - General Family Medicine 11/11/17 documented as of this encounter
--- OUTSIDE RECORDS SUMMARY | 2024-04-16 00:24 | XMS_ITS | Encounter Summary ---
Author Organization [facility] [place] [address] Care Team Providers Care Technical Applications Specialist Name Role Phone Marcio Devlin DO Primary Care Provider [phone] Reason for Referral * Diagnostic Test (Routine) - Closed Specialty Diagnoses / Procedures Referred By Contac t Referred To Contact Radiology Diagnoses Ankylosing spondylitis of cervical region Neck pain Decreased ROM of neck Procedures MRI Cervical Spine wo Contrast (Generic) Gabe Fong MD [facility] [address] [place] [address] [place] [address] Referral ID Status Reason Start Date Expiration Date V isits Requested Visits Authorized [id number] Closed Specialty Service Requested 02/22/2022 08/24/2023 1 1 Encounter Details Date Type Department Care Team (Late st Contact Info) Description 02/22/2022 10:30 AM EDT Office [place] [address] Gabe Fong MD [facility] [address] [place] [address] Chronic left hip pain; Ankylosing [...] Hospital Encounter Non[place] [address] Arrived 04/29/2024 9:50 AM EDT Appointment MRI at [place] [phone] Luis Alfredo Velazquez MD [facility] [place] [address] 04/29/2024 9:50 AM EDT Appointment MRI at [address] Luis Alfredo Velazquez MD [facility] [place] [address] 06/07/2024 2:30 PM EDT TH Visit (TeleHealth) Gastroenterology at [place] [phone] Dajuan Rachel MD [facility] [place] [address] 07/02/2024 2:00 PM EDT Appointment Non-Invasive Cardiology Lab [place] [phone] Luis Alfredo Velazquez MD [facility] [place] [address] 07/02/2024 4:00 PM EDT Office Visit Cardiology at [address] [address] Mars Green PA [facility] [place] [address] 07/02/2024 4:40 PM EDT Office Visit Cardiology at [address] [address] Luis Alfredo Velazquez MD [facility] [place] [address] documented as of this encounter Procedures Procedure [...] who have questions please contact the health manager managed care that requested your imaging first. ? Electronically signed by: Jorje Miller MD, [facility] ([phone]), at 03/08/2022 3:59 PM Narrative 03/08/2022 3:59 [...] patients who have questions please contactthe health manager managed care that requested your imaging first. Electronically signed by: Jorje Miller MD, [facility]([phone]), at 03/08/2022 3:59 PM Gabe Fong MD IMG MRI ORDERABLES * Bilirubin, Direct (02/22/2022 11:05 AM EDT) Pathologist [facility] Bili, Direct 0.1 0.0 - 0.3 mg/dL [facility] Blood 02/22/2022 11:0 5 AM EDT 02/22/2022 11:22 AM EDT Narrative Resulting Agency Comment Spec In Lab Gabe Fong MD CHEMISTRY ORDERABLES [facility] [place] [address] * Differential, Automated (02/22/2022 11:05 AM EDT) [facility] Neutrophils % 61.2 % [facility] Neutr Abs (ANC) 4.92 1.70 - 6.10 x10(3)/[facility] Lymphocytes % 27.7 % [facility] Lymphocytes Abs 2.2 0.9 - 3.2 x10(3)/[facility] Monocytes % 8.4 % [facility] Monocyte Abs 0.7 0.3 - 0.9 x10(3)/[facility] Eosinophils % 2.0 % [facility] Eosinophils Abs 0.2 0.0 - 0.4 x10(3)/[facility] Basophils % 0.5 % [facility] Basophils Abs 0.0 0.0 - 0.1 x10(3)/[facility] Immature Gran % 0.20 % [facility] Comment: Immature granulocytes(IG's)percentage and absolute count will include metamyelocytes, myelocytes, and promyelocytes. Blood smears from CBCs yielding IG's will be scanned manually for concordance. If this scan disagrees with the automated IG or if promyelocytes are noted, a manual differential will be performed. Melanie Gran Abs 0.02 0.00 - 0.04 x10(3)/[facility] Blood 02/22/2022 11:0 5 AM EDT 02/22/2022 11:22 AM EDT Narrative Resulting Agency Comment Spec In Lab Gabe Fong MD HEMATOLOGY ORDERABLE S [facility] [place] [address] * Hemogram (02/22/2022 11:05 AM EDT) WBC 8.0 4.0 - 9.5 x10(3)/[facility] RBC 4.80 4.00 - 5.21 x10(6)/[facility] Hemoglobin 13.6 11.7 - 15.5 g/dL [facility] Hematocrit 42.4 35.7 - 45.8 % [facility] MCV 88.3 82.6 - 94.4 [facility] MCH 28.3 27.1 - 32.0 pg [facility] MCHC 32.1 31.7 - 35.0 g/dL [facility] Platelets 262 145 - 357 x10(3)/[facility] RDWSD 44.7 37.0 - 46.0 [facility] RDWCV 13.6 11.5 - 14.1 % [facility] MPV 10.0 7.6 - 12.9 [facility] nRBC % Auto 0.0 % [facility] nRBC Abs Auto 0.000 0.000 - 0.000 x10(3)/[facility] Blood 02/22/2022 11:0 5 AM EDT 02/22/2022 11:22 AM EDT Narrative Resulting Agency Comment Spec In Lab Gabe Fong MD HEMATOLOGY ORDERABLE S [facility] [place] [address] * (ABNORMAL) Comprehensive metabolic panel (non-fasting) (02/22/2022 11:05 AM EDT) Glucose Lvl 102 65 - 199 mg/dL [facility] Comment:Diabetes: >=200 mg/d L plus symptoms BUN 19(H) 8 - 18 mg/dL [facility] Creatinine 0.78 0.70 - 1.20 mg/dL [facility] Sodium 144 135 - 145 mmol/L [facility] Potassium 4.1 3.5 - 5.0 mmol/L [facility] Comment: Please note: ??Patients with WBC >100,000 may have falsely elevated Potassium levels. ??For accurate Potassium quantification in these patients send serum separator tube (gold top) for subsequent determinations. ??Contact the Clinical Chemistry Laboratory if there are any questions. Chloride 106 98 - 107 mmol/L [facility] CO2 26 22 - 31 mmol/L [facility] Anion Gap 12 5 - 15 mmol/L [facility] Calcium 10.1 8.5 - 10.5 mg/dL [facility] Total Protein 8.0 6.1 - 8.0 g/dL [facility] Albumin 4.1 3.2 - 5.2 g/dL [facility] AST 23 0 - 30 unit/L [facility] ALT 19 0 - 30 unit/L [facility] Alk Phos 122(H) 35 - 105 unit/L [facility] Total Bilirubin 0.4 0.2 - 1.3 mg/dL [facility] Estimated GFR 83 >=60 mL/min/1. 73 m?? [facility] Comment: This patient? s estimated [...] Fong MD CHEMISTRY ORDERABLES Performing Organization Address [facility]/ZIP Co de Phone Number [facility] [place] [address] * (ABNORMAL) CRP, acute inflammation (02/22/2022 11:05 AM EDT) CRP 15.0(H) <=4.9 mg/L [facility] Blood 02/22/2022 11:0 5 AM EDT 02/22/2022 11:22 AM EDT Narrative Resulting Agency Comment Spec In Lab Gabe Fong MD CHEMISTRY ORDERABLES Performing Organization Address [facility] Co de Phone Number [facility] [place] [address] * (ABNORMAL) Sedimentation rate (02/22/2022 11:05 AM EDT) Sed Rate 42(H) 2 - 39 mm/hr [facility] Comment: Effective August 25, 2019 new capillary photometric technology has resulted in a change in reference ranges. It is recommended that each ESR result be reviewed with its own age appropriate reference range. Blood 02/22/2022 11:0 5 AM EDT 02/22/2022 11:22 AM EDT Narrative Resulting Agency Comment Spec In Lab Gabe Fong MD HEMATOLOGY ORDERABLE S Performing Organization Address [facility] Co de Phone Number [facility] [place] [address] documented in this encounter Visit Diagnoses Diagnosis [...] neck documented in this encounter Care Teams Technical Applications Specialist Relationship Specialty Start Date End Date Marcio Devlin DO [address] [place] [address] PCP - General Family Medicine 11/11/17 documented as of this encounter
--- OUTSIDE RECORDS SUMMARY | 2024-04-16 00:24 | XMS_ITS | Encounter Summary ---
Author Organization [facility] Address [facility] [place] [address] Care Team Providers Care Wide Area Network Engineer Name Role Phone Marcio Devlin DO Primary Care Provider [phone] Reason for Visit * Reason Comments Back Pain Back and neck pain * Consultation (Routine) - Closed Specialty Diagnoses / Procedures Referred By Contlyn t Referred To Contact Pain Management Diagnoses Chronic left hip pain Ankylosing spondylitis of cervical region Neck pain Gabe Fong MD [facility] [address] [address] Jorje Marquez [address] [address] Referral ID Status Reason Start Date Expiration Date V isits Requested Visits Authorized [id number] Closed Consult, Test & Treat 03/22/2022 03/22/2023 1 1 Encounter Details Date Type Department Care Team (Late st Contact Info) Description 05/07/2022 3:00 PM EDT Office Visit Pain Management at [facility] [place] [phone] [place] [address] Chronic neck pain; Chronic bilateral thoracic back [...] documented in this encounter Progress Notes * AlmaJorje, DO - 05/07/2022 3:00 PM EDT Pain Clinic Initial Consultation Note DOS: 05/07/22 : 1960 Kim Funes is a 62 y.o. year old female with a PMH including ulcerative colitis, ankylosingspondylitis, on Stelara, dyslipidemia, Osteopenia who presents to the pain clinic today at the referral of Gabe Fong MD [facility] [place] [address] for consultation regarding neck and back pain. [...] She has been through physical therapy in [facility] for left hip pain but has not had any recent physical therapy for her neck or back. She had noprior spinal surgery or injections. Patient has lost 60 pounds over the past 4 years to diligent diet and lifestyle changes. The patient has been following with Dr. Ajit of rheumatology who referredher here for consideration [...] disease Colonoscopy 09/19/08 (Dr. Shady Luz at [facility]) for surveillance for dysplasia. Areas of skip [...] WITH BX performed by YAQUELIN ESTRADA at [facility] ??? PRO COLONOSCOPY, BIOPSY N/A 03/04/2017 COLONOSCOPY FLEXIBLE, WITH BX (WRVU 3.66) performed by Raúl Austin MD at [facility] ??? PRO COLONOSCOPY, BIOPSY N/A 11/09/2019 COLONOSCOPY FLEXIBLE, WITH BX (WRVU 3.66) performed by Froilan Sahni MD at [facility] ??? PRO COLONOSCOPY, BIOPSY N/A 12/19/2020 COLONOSCOPY FLEXIBLE, WITH BX (WRVU 3.66) performed by Dajuan Racehl MD at [facility] ??? PRO COLONOSCOPY, DIAGNOSTIC N/A 11/09/2019 COLONOSCOPY, DIAGNOSTIC performed by Froilan Sahni MD at [facility] ??? PRO COLONOSCOPY, REMV LESN, SNARE 01/02/2011 COLONOSCOPY, POLYPECTOMY, REMOVAL LESION BY SNARE performed by YAQUELIN ESTRADA at [facility] ??? PRO COLONOSCOPY, REMV LESN, SNARE N/A 03/04/2017 COLONOSCOPY, POLYPECTOMY, REMOVAL LESION BY SNARE (WRVU 4.67) performed by Raúl Austin MD at [facility] ??? PRO COMBINED ANT/POST COLPORRHAPHY N/A 03/10/2018 COLPORRHAPHY ANTERIOR-POSTERIOR; INC CYSTOURETHROSCOPY (WRVU 14.44) performed by Liang Fong MD at [facility] ??? PRO REVAGINAL PROLAPSE, UTEROSACRAL N/A 03/10/2018 COLPOPEXY, VAGINAL, INTRAPERITONEAL APPROACH (WRVU 11.66) [facility] ??? PRO SLING OPER STRES INCONTINENCE N/A 03/10/2018 URETHRAL SUSPENSION, SLING\FASCIA OR SYNTHETIC (WRVU 12.13) performed by Liang Fong MD at [facility] ??? PRO VAG HYST, RMV TUBE/OVARY N/A 03/10/2018 HYSTERECTOMY, VAGINAL, REMOVAL TUBE(S) & OR OVARY(S) (WRVU 15.94) performed by Liang Fong MD at [facility] ??? SALPINGECTOMY ??? XR FLUORO INJECTION DRAINAGE JOINT LG RIGHT Right 03/09/2019 XR Fluoro Guided Joint Injection Large Right 03/09/2019 [facility] XRAY FAMILY HISTORY: Family History Problem Relation Age of Onset ??? Hypertension Mother ??? Heart Disease Mother ??? Diabetes Mother ??? Heart Disease Father ??? Cancer Father Lung SOCIAL HISTORY: Tobacco : none Alcohol : rare Recreational drug use : Work : [employer] at [employer] Home : lives in [place] with Hobbies : fishing, [place] FUNCTIONAL STATUS: Independent in all ADLs. MEDICATIONS: [...] , Rfl: ??? SUMAtriptan (IMITREX) 20 mg/actuation Atkins, Non-Aerosol, 1 spray as needed., Disp: , [...] Nausea/Vomiting, Patient reported PHYSICAL EXAM: Patient declined shake out worker today BP 146/80 (BP Location (NBP): Left [...] including shoulder abduction/adduction, elbow flexion/extension, wrist flexion/extension, employee operations examiner strength, finger abduction, thumb to index opposition [...] in ...'s care. Jorje Marquez DO Pain Contact Center Specialist Professor of Anesthesiology [facility] [employer] CC: Gabe Fong MD [facility] [place] [id number] documented in this encounter Plan of Treatment Upcoming Encounters Date Type Department Care Team (Late st Contact Info) Description 04/19/2024 10:00 AM EDT Hospital Encounter Non-[place] [address] Arrived 04/29/2024 9:50 AM [place] [address] Luis Alfredo Velazquez MD [facility] [place] [address] 04/29/2024 9:50 AM [place] [address] Luis Alfredo Velazquez MD [facility] [place] [address] 06/07/2024 2:30 PM EDT TH Visit (TeleHealth) [place] [address] Dajuan Rachel MD [facility] GASTRO[place] [address] 07/02/2024 2:00 PM EDT Appointment Non-[place]vasive [place] [address] Luis Alfredo Velazquez MD [facility] [place] [address] 07/02/2024 4:00 PM EDT Office Visit Cardiology at [address] [address] [place] PA [facility] [address] [place], [place] [address] 07/02/2024 4:40 PM EDT Office Visit Cardiology at [address] [address] Luis Alfredo Velazquez MD [facility] [place] [address] documented as of this encounter Results * [...] have questions please contact the health career law clerk that requested your imaging first. ? Electronically signed by: Nba Alberts MD, [facility] ([phone]), at 05/07/2022 4:15 PM Narrative 05/07/2022 4:15 PM EDT EXAMINATION: XR [...] who have questions please contactthe health career law clerk that requested your imaging first. Electronically signed by: Nba Alberts MD, [facility]([phone]), at 05/07/2022 4:15 PM Jorje Marquez DO IMG DX ORDERABLES * [...] have questions please contact the health career law clerk that requested your imaging first. ? Electronically signed by: Nba Alberts MD, [facility] ([phone]), at 05/07/2022 4:22 PM Narrative 05/07/2022 4:22 PM EDT EXAMINATION: XR LUMBAR SPINE 2 OR 3 VIEWS (GENERIC) CLINICAL HISTORY: chronic low back pain hx ankylosing spondylitis TECHNIQUE: Lumbar spine AP and lateral COMPARISON: August 24, 2015 FINDINGS: There are five [id number] lumbar-type vertebrae. The osseous structures are diffusely [...] August 24, 2015 FINDINGS: There are five [id number] lumbar-type vertebrae. The osseous structures are diffusely [...] who have questions please contactthe health career law clerk that requested your imaging first. Electronically signed by: Nba Alberts MD, [facility]([phone]), at 05/07/2022 4:22 PM Jorje Marquez DO IMG DX ORDERABLES documented [...] pain documented in this encounter Care Teams Wide Area Network Engineer Relationship Specialty Start Date End Date Marcio Devlin DO [address] [place] [address] PCP - General Family Medicine 11/11/17 documented as of this encounter
--- OUTSIDE RECORDS SUMMARY | 2024-04-16 00:24 | XMS_ITS | Encounter Summary ---
Author Organization [facility] [place] [address] Care Team Providers Care Diesel Mechanic Construction Name Role Phone Marcio Devlin DO Primary Care Provider [phone] Encounter Details Date Type Department Care Team (Late st Contact Info) Description 05/14/2022 Telephone [place] [address] Janki Abdi Social History Tobacco [...] AM EDT Hospital Encounter Non-Invasive [place] [address] Arrived 04/29/2024 9:50 AM EDT Appointment MRI at [place] [phone] Luis Alfredo Velazquez MD [facility] [place] [place] [address] 04/29/2024 9:50 AM EDT [place] [address] Luis Alfredo Velazquez MD [facility] [place] [place] [address] 06/07/2024 2:30 PM EDT TH Visit (TeleHealth) Gastroenterology at [place] [address] Dajuan Rachel MD [facility] [place] [address] 07/02/2024 2:00 PM EDT Appointment Non-Invasive Cardiology Lab [address] Luis Alfredo Velazquez MD [facility] [place] [address] 07/02/2024 4:00 PM EDT Office Visit Cardiology at [place] [address] [place] PA [facility] [place] [address] 07/02/2024 4:40 PM EDT Office Visit Cardiology at [place] [address] Luis Alfredo Velazquez MD [facility] [place] [place] [address] documented as of this encounter Visit Diagnoses Not on filedocumented in this encounter Care Teams Diesel Mechanic Construction Relationship Specialty Start Date End Date Marcio Devlin DO [address] [place] [address] PCP - General Family Medicine 11/11/17 documented as of this encounter
--- OUTSIDE RECORDS SUMMARY | 2024-04-16 00:24 | XMS_ITS | Encounter Summary ---
Author Organization [place] [address] Care Team Providers Care Crossing Flagman Name Role Phone Marcio Devlin DO Primary Care Provider [phone] Reason for Referral * Diagnostic Test (Routine) - Closed Specialty Diagnoses / Procedures Referred By Contac t Referred To Contact Radiology Diagnoses Ankylosing spondylitis of cervical region Neck pain Decreased ROM of neck Procedures MRI Cervical Spine wo Contrast (Generic) Gabe Fong MD [facility] [address] [place] [address] [place] [address] Referral ID Status Reason Start Date Expiration Date V isits Requested Visits Authorized [id number] Closed Specialty Service Requested 02/22/2022 08/24/2023 1 1 Reason for Visit * Diagnostic Test (Routine) - Closed Specialty Diagnoses / Procedures Referred By Contac t Referred To Contact Radiology Diagnoses Ankylosing spondylitis of cervical region Neck pain Decreased ROM of neck Procedures MRI Cervical Spine wo Contrast (Generic) Gabe Fong MD [facility] [address] [place] [address] [place] [address] Referral ID Status Reason Start Date Expiration Date V isits Requested Visits Authorized [id number] Closed Specialty Service Requested 02/22/2022 08/24/2023 1 1 Encounter Details Date Type Department Care Team (Latest Contact Info) Description 03/08/2022 6:57 AM EDT - 03/08/2022 11:59 PM EDT Hospital Encounter MRI at [facility] [place] [address] Gabe Fong MD [facility] RHEUMATOLOGY [place] [id number] Ankylosing spondylitis of cervical region; Neck pain; [...] by mouth daily. SUMAtriptan (IMITREX) 20 mg/actuation Starr, Non-Aerosol 1 spray as needed. 11/03/2017 metFORMIN [...] AM EDT Hospital Encounter Non-Invasive Cardiology Lab [place] [phone] Arrived 04/29/2024 9:50 AM EDT Appointment MRI at [address] Luis Alfredo Velazquez MD [facility] [place] [address] 04/29/2024 9:50 AM EDT Appointment MRI at [place] [phone] Luis Alfredo Velazquez MD [facility] [place] [address] 06/07/2024 2:30 PM EDT TH Visit (TeleHealth) [place] [address] Dajuan Rachel MD [facility] [place] [address] 07/02/2024 2:00 PM EDT Appointment Non-[place]vasive [place] [address] Luis Alfredo Velazquez MD [facility] [place] [address] 07/02/2024 4:00 PM EDT Office Visit Cardiology at [address] [phone] [place] PA [facility] [place] [address] 07/02/2024 4:40 PM EDT Office Visit Cardiology at [address] [place] [address] Luis Alfredo Velazquez MD [facility] [place] [address] documented as of this encounter Procedures Procedure [...] have questions please contact the health care services manager that requested your imaging first. ? Electronically signed by: Jorje Miller MD, [facility] ([phone]), at 03/08/2022 3:59 PM Narrative 03/08/2022 3:59 [...] who have questions please contactthe health care services manager that requested your imaging first. Electronically signed by: Jorje Miller MD, [facility]([phone]), at 03/08/2022 3:59 PM Gabe Fong MD IMG MRI ORDERABLES documented in this encounter Visit Diagnoses Diagnosis Ankylosing spondylitis of cervical region Ankylosing spondylitis Neck pain Cervicalgia Decreased ROM of neck documented in this encounter Care Teams Crossing Flagman Relationship Specialty Start Date End Date Marcio Devlin DO [address] [place] [address] PCP - General Family Medicine 11/11/17 documented as of this encounter
--- OUTSIDE RECORDS SUMMARY | 2024-04-16 00:24 | XMS_ITS | Encounter Summary ---
Author Organization [facility] [place] [address] Care Team Providers Care Director Of Marketing Analytics Name Role Phone Marcio Devlin DO Primary Care Provider [phone] Reason for Visit * Reason Comments Follow-up Encounter Details Date Type Department Care Team (Late st Contact Info) Description 06/11/2022 4:00 PM EDT Office Visit Pain Management at [facility] [address] [address] Jorje Marquez DO [address] [place] [address] Chronic bilateral thoracic back pain; Chronic neck [...] at the referral of Marcio Devlin, DO [address] [place] [address] [place] [address] for consultation regarding neck and back pain. [...] She has [facility] hip pain but has not [...] disease Colonoscopy 09/19/08 (Dr. Shady Luz at [facility]) for surveillance for dysplasia. Areas of skip [...] WITH BX performed by YAQUELIN ESTRADA at [facility] ENDOSCOPY ??? PRO COLONOSCOPY, BIOPSY N/A 03/04/2017 COLONOSCOPY FLEXIBLE, WITH BX (WRVU 3.66) performed by Raúl Austin MD at [facility] ENDOSCOPY ??? PRO COLONOSCOPY, BIOPSY N/A 11/09/2019 COLONOSCOPY FLEXIBLE, WITH BX (WRVU 3.66) performed by Froilan Sahni MD at [facility] ENDOSCOPY ??? PRO COLONOSCOPY, BIOPSY N/A 12/19/2020 COLONOSCOPY FLEXIBLE, WITH BX (WRVU 3.66) performed by Dajuan Rachel MD at [facility] ENDOSCOPY ??? PRO COLONOSCOPY, DIAGNOSTIC N/A 11/09/2019 COLONOSCOPY, DIAGNOSTIC performed by Froilan Sahni MD at [facility] ENDOSCOPY ??? PRO COLONOSCOPY, REMV LESN, SNARE 01/02/2011 COLONOSCOPY, POLYPECTOMY, REMOVAL LESION BY SNARE performed by YAQUELIN ESTRADA at [facility] ENDOSCOPY ??? PRO COLONOSCOPY, REMV LESN, SNARE N/A 03/04/2017 COLONOSCOPY, POLYPECTOMY, REMOVAL LESION BY SNARE (WRVU 4.67) performed by Raúl Austin MD at [facility] ENDOSCOPY ??? PRO COMBINED ANT/POST COLPORRHAPHY N/A 03/10/2018 COLPORRHAPHY ANTERIOR-POSTERIOR; INC CYSTOURETHROSCOPY (WRVU 14.44) performed by Liang Fong MD at [facility] MAIN OR ??? PRO REVAGINAL PROLAPSE, UTEROSACRAL N/A 03/10/2018 COLPOPEXY, VAGINAL, INTRAPERITONEAL APPROACH (WRVU 11.66) performed by Liang Fong MD at [facility] OR ??? PRO SLING OPER STRES INCONTINENCE N/A 03/10/2018 URETHRAL SUSPENSION, SLING\FASCIA OR SYNTHETIC (WRVU 12.13) performed by Liang Fong MD at [facility] MAIN OR ??? PRO VAG HYST, RMV TUBE/OVARY N/A 03/10/2018 HYSTERECTOMY, VAGINAL, REMOVAL TUBE(S) & OR OVARY(S) (WRVU 15.94) performed by Liang Fong MD at [facility] MAIN OR ??? SALPINGECTOMY ??? XR FLUORO INJECTION DRAINAGE JOINT LG RIGHT Right 03/09/2019 XR Fluoro Guided Joint Injection Large Right 03/09/2019 [facility] RAD XRAY FAMILY HISTORY: Family History Problem Relation Age of Onset ??? Hypertension Mother ??? Heart Disease Mother ??? Diabetes Mother ??? Heart Disease Father ??? Cancer Father Lung SOCIAL HISTORY: Tobacco : none Alcohol : rare Recreational drug use : Work : [employer] at [email or web address] Home : lives in [facility] with Hobbies : fishing, stamping FUNCTIONAL STATUS: [...] , Rfl: ??? SUMAtriptan (IMITREX) 20 mg/actuation [place], Non-Aerosol, 1 spray as needed., Disp: , [...] including shoulder abduction/adduction, elbow flexion/extension, wrist flexion/extension, certified endoscopy technician strength, finger abduction, thumb to index opposition [...] 24, 2015 ?? FINDINGS: There are five [id number] lumbar-type vertebrae. ?? The osseous structures are [...] in Kim's care. Jorje Marquez DO Pain Field Manager Professor of Anesthesiology [facility] CC: Marcio Devlin DO [address] [place] [address] documented in this encounter Plan of Treatment Upcoming Encounters Date Type Department Care Team (Late st Contact Info) Description 04/19/2024 10:00 AM EDT Hospital Encounter Non[place] [address] Arrived 04/29/2024 9:50 AM EDT [place] [address] Luis Alfredo Velazquez MD [facility] [place] [address] 04/29/2024 9:50 AM EDT [place] [address] Luis Alfredo Velazquez MD [facility] [place] [address] 06/07/2024 2:30 PM EDT TH Visit (TeleHealth) Gastroenterology at [address] Dajuan Rachel MD [facility] [place] [address] 07/02/2024 2:00 PM EDT Appointment Non-Invasive Cardiology Lab [address] Luis Alfredo Velazquez MD [facility] [place] [address] 07/02/2024 4:00 PM EDT Office Visit Cardiology at [address]1000 [place] [facility] [place] [address] 07/02/2024 4:40 PM EDT Office Visit Cardiology at [address] Luis Alfredo Velazquez MD [facility] [place] [address] documented as of this encounter Visit Diagnoses Diagnosis Chronic bilateral thoracic back pain Chronic neck pain Cervicalgia Chronic bilateral low back pain without sciatica Ankylosing spondylitis of multiple sites in spine Ankylosing spondylitis documented in this encounter Care Teams Director Of Marketing Analytics Relationship Specialty Start Date End Date Marcio Devlin DO [address] [place] [address] PCP - General Family Medicine 11/11/17 documented as of this encounter
--- OUTSIDE RECORDS SUMMARY | 2024-04-16 00:24 | XMS_ITS | Encounter Summary ---
Author Organization [facility] [place] [address] Care Team Providers Care Photocopy Operator Name Role Phone Marcio Devlin DO Primary Care Provider [phone] Reason for Visit * Reason Comments Specialty Pharmacy Review Ustekinumab (S telara) 90mg/mL Syringe Encounter Details Date Type Department Care Team (Late st Contact Info) Description 03/22/2022 Specialty [place] [address] Alison Ortiz, [facility] Social History Tobacco Use Types Packs/Day [...] Ortiz - 03/22/2022 11:59 PM EDT The [facility] has completed a benefits investigation for Kim Funes to review their eligibility to fill at [facility]. Per patient's medication list they [...] EDT Hospital Encounter Non-[place] [address] Arrived 04/29/2024 9:50 AM EDT Appointment MRI at [address] Luis Alfredo Velazquez MD [facility] [place] [address] 04/29/2024 9:50 AM EDT Appointment MRI at [place] [phone] Luis Alfredo Velazquez MD [facility] [place] [address] 06/07/2024 2:30 PM EDT TH Visit (TeleHealth) [place] [address] Dajuan Rachel MD [facility] [place] [address] 07/02/2024 2:00 PM EDT Appointment Non-Invasive Cardiology Lab [place] [phone] Luis Alfredo Velazquez MD [facility] [place] [address] 07/02/2024 4:00 PM EDT Office Visit Cardiology at [address] [address] [place] [facility] [place] [address] 07/02/2024 4:40 PM EDT Office Visit Cardiology at [address] [address] Luis Alfredo Velazquez MD [facility] [place] [address] documented as of this encounter Visit Diagnoses Not on filedocumented in this encounter Care Teams Photocopy Operator Relationship Specialty Start Date End Date Marcio Devlin DO [address] [place] [address] PCP - General Family Medicine 11/11/17 documented as of this encounter
--- OUTSIDE RECORDS SUMMARY | 2024-04-16 00:24 | XMS_ITS | Encounter Summary ---
Author Organization [facility] [place] [address] Care Team Providers Care National Sales Director Name Role Phone Marcio Devlin DO Primary Care Provider [phone] Reason for Referral * Physical Therapy (Routine) - Closed Specialty Diagnoses / Procedures Referred By Missy escalera Referred To Contact Diagnoses Neck pain Chronic bilateral thoracic back pain Ankylosing spondylitis of cervical region Ulcerative colitis without complications, unspecified location High risk medication use Gabe Fong MD [facility] [address] [place] [address] Referral ID Status Reason Start Date Expiration Date V isits Requested Visits Authorized [id number] Closed Evaluate and Treat 08/06/2022 02/02/2023 12 12 Encounter Details Date Type Department Care Team (Late st Contact Info) Description 08/06/2022 9:30 AM EST Office Visit [place] [address] Gabe Fong MD [facility] [address] [place] [address] Neck pain; Chronic bilateral thoracic back pain; [...] has some concerns about her GI health Sara is not covered the ankylosing spondylitis associated with ulcerative colitis however she has been talking with her truck shop mechanic about getting in for repeat colonoscopy but [...] AM EDT Hospital Encounter Non-Invasive [place] [address] Arrived 04/29/2024 9:50 AM EDT [place] [address] Luis Alfredo Velazquez MD [facility] [place] [address] 04/29/2024 9:50 AM EDT [place] [address] Luis Alfredo Velazquez MD [facility] [place] [address] 06/07/2024 2:30 PM EDT TH Visit (TeleHealth) [place] [address] Dajuan Rachel MD [facility] [place] [address] 07/02/2024 2:00 PM EDT Appointment Non-Invasive Cardiology Lab [place] [phone] Luis Alfredo Velazquez MD [facility] [place] [address] 07/02/2024 4:00 PM EDT Office Visit Cardiology at [place] [phone] [place] [facility] [place] [address] 07/02/2024 4:40 PM EDT Office Visit Cardiology at [address] [address] Luis Alfredo Velazquez MD [facility] [place] [address] Scheduled Referrals Name Type Priority Associated Diagnoses [...] medications documented in this encounter Care Teams National Sales Director Relationship Specialty Start Date End Date Marcio Devlin DO [address] [place] [address] PCP - General Family Medicine 11/11/17 documented as of this encounter
--- OUTSIDE RECORDS SUMMARY | 2024-04-16 00:24 | XMS_ITS | Encounter Summary ---
Author Organization [facility] [place] [address] Care Team Providers Care Import Export Agent Name Role Phone Marcio Devlin DO Primary Care Provider [phone] Reason for Visit * Reason Comments Specialty Pharmacy Review Ustekinumab (S telara) 90mg/mL Syringe Encounter Details Date Type Department Care Team (Late st Contact Info) Description 08/06/2022 Specialty [place] [address] Alison Ortiz, [facility] Social History Tobacco Use Types Packs/Day [...] be filled at the - Specialty Pharmacy. Kmi Funes must fill with [facility] under current insurance plan's mandate. documented in this encounter Plan of Treatment Upcoming Encounters Date Type Department Care Team (Late st Contact Info) Description 04/19/2024 10:00 AM EDT Hospital Encounter Non-[place] [address] Arrived 04/29/2024 9:50 [place] [address] Luis Alfredo Velazquez MD [facility] [place] [address] 04/29/2024 9:50 AM EDT Appointment MRI at [address]1000 Luis Alfredo Velazquez MD [facility] [place] [address] 06/07/2024 2:30 PM EDT TH Visit (TeleHealth) Gastroenterology at [place] [address] Dajuan Rachel MD [facility] [place] [address] 07/02/2024 2:00 PM EDT Appointment Non-Invasive Cardiology Lab [address]1000 Luis Alfredo Velazquez MD [facility] [place] [address] 07/02/2024 4:00 PM EDT Office [place] [address] [place] [facility] [place] [address] 07/02/2024 4:40 PM EDT Office Visit Cardiology at [address] Luis Alfredo Velazquez MD [facility] [place] [address] documented as of this encounter Visit Diagnoses Not on filedocumented in this encounter Care Teams Import Export Agent Relationship Specialty Start Date End Date Marcio Devlin DO [address] [place] [address] PCP - General Family Medicine 11/11/17 documented as of this encounter
--- OUTSIDE RECORDS SUMMARY | 2024-04-16 00:24 | XMS_ITS | Encounter Summary ---
Author Organization [facility] [place] [address] Care Team Providers Care Cutlery Grinder Name Role Phone Marcio Devlin DO Primary Care Provider [phone] Encounter Details Date Type Department Care Team (Late st Contact Info) Description 08/06/2022 Telephone [place] [address] [place] Dajuan Social History [...] - 08/06/2022 12:52 PM EST Kim Funes [id number] Diagnosis/Indication: Restaging UC since changing to [facility] [...] No 18. You must have a responsible libertarian who will drive you to your procedure, stay on campus for the entire duration of your procedure, and drive you home from your procedure. Who will likely be your route driver coin machines for the procedure? Estimated body mass index [...] at 07/31/2022 7:02 PM EST ----- Regarding: [place] [facility] schedule the colo that was ordered at the beginning of the year. Thanks. Next available with mod consc sed C documented in this encounter Plan of Treatment Upcoming Encounters Date Type Department Care Team (Late st Contact Info) Description 04/19/2024 10:00 AM EDT Hospital Encounter Non-[place] [phone] Arrived 04/29/2024 9:50 AM EDT Appointment MRI at [place] [phone] Luis Alfredo Velazquez MD [facility] [place] [address] 04/29/2024 9:50 AM [place] [address] Luis Alfredo Velazquez MD [facility] [place] [address] 06/07/2024 2:30 PM EDT TH Visit (TeleHealth) Gastroenterology at [place] [phone] Dajuan Rachel MD [facility] [place] [address] 07/02/2024 2:00 PM EDT Appointment Non-[place]vasive [place] [address] Luis Alfredo Velazquez MD [facility] [place] [address] 07/02/2024 4:00 PM EDT Office Visit Cardiology at [address] [address] [place] [facility] [place] [address] 07/02/2024 4:40 PM EDT Office Visit Cardiology at [address] [address] Luis Alfredo Velazquez MD [facility] [place] [address] documented as of this encounter Visit Diagnoses Not on filedocumented in this encounter Care Teams Cutlery Grinder Relationship Specialty Start Date End Date Marcio Devlin DO [address] [place] [address] PCP - General Family Medicine 11/11/17 documented as of this encounter
--- OUTSIDE RECORDS SUMMARY | 2024-04-16 00:24 | XMS_ITS | Encounter Summary ---
Author Organization [facility] Address [facility] [place] [address] Care Team Providers Care Wholesale Parts Salesperson Name Role Phone Marcio Devlin DO Primary Care Provider [phone] Encounter Details Date Type Department Care Team (Late st Contact Info) Description 02/11/2022 Orders [place] [address] Dajuan Rachel MD [facility] [place] [address] Social History Tobacco Use Types Packs/Day Years [...] AM EDT Hospital Encounter Non-Invasive [place] [address] Arrived 04/29/2024 9:50 AM EDT Appointment MRI at [address]1000 Luis Alfredo Velazquez MD [facility] [place] [address] 04/29/2024 9:50 AM EDT Appointment MRI at [address]1000 Luis Alfredo Velazquez MD [facility] [place] [address] 06/07/2024 2:30 PM EDT TH Visit (TeleHealth) [place] [address] Dajuan Rachel MD [facility] [place] [address] 07/02/2024 2:00 PM EDT Appointment Non-Invasive Cardiology Lab [address]1000 Luis Alfredo Velazquez MD [facility] [place] [address] 07/02/2024 4:00 PM EDT Office Visit Cardiology at [address]1000 [place] [facility] [place] [address] 07/02/2024 4:40 PM EDT Office Visit Cardiology at [place] [phone] Luis Alfredo Velazquez MD [facility] [place] [address] documented as of this encounter Visit Diagnoses Not on filedocumented in this encounter Care Teams Wholesale Parts Salesperson Relationship Specialty Start Date End Date Marcio Devlin DO [address] [place] [address] PCP - General Family Medicine 11/11/17 documented as of this encounter
--- OUTSIDE RECORDS SUMMARY | 2024-04-16 00:24 | XMS_ITS | Encounter Summary ---
Author Organization [facility] [place] [address] Care Team Providers Care Mat Machine Operator Name Role Phone Marcio Devlin DO Primary Care Provider [phone] Reason for Visit * Auth/Cert (Routine) Specialty Diagnoses / Procedures Referred By Contlyn t Referred To Contact Diagnoses Restaging UC since changing to Stelara 03/2021 Procedures PRO COLONOSCOPY, DIAGNOSTIC COLONOSCOPY, DIAGNOSTIC Dajuan Rachel MD [facility] [place] [address] [facility] Referral ID Status Reason Start Date Expiration Date Visits Re quested Visits Authorized [id number] 1 1 Encounter Details Date Type Department Care Team (Latest Contact Info) Description 09/24/2022 9:56 AM EST - 09/24/2022 1:32 PM [facility] Hospital Encounter [place] [address] Dajuan Rachel MD [facility] [place] [address] Discharge Disposition: Home Social History Tobacco Use [...] occurs, please contact your Doctor. Please call [phone] before 8pm Mon-Fri with problems, questions or concerns. If you call after 8pm or on weekends, call the Hospital at [phone] and ask to speak to the Bleach Plant Operator sap consultant and the enrobing machine operator will contact that person for [...] any problems. Where can you learn more? [facility] View your After Visit Summary and more online at [email or web address] If you would like to provide feedback about your hospital experience, please call the Office of Patient and Family Relations at . If you have received this After Visit Summary in error, please immediately return it in person to the department, or notify the [facility] Privacy Office by calling toll free at between the hours of 8AM and 5PM to arrange for our retrieval of the documents at no cost to you. Content Version: 12.2 ?? [phone] [employer]. Care instructions adapted under license by [employer]. If you have questions about a medical condition or this instruction, always ask your healthcare professional. [employer] disclaims any warranty or liability for your [...] by mouth daily. SUMAtriptan (IMITREX) 20 mg/actuation [place], Non-Aerosol 1 spray as needed. 11/03/2017 metFORMIN [...] - 09/24/2022 1:32 PM EST Kim Funes [address] [place] [phone] October 20, 2022 Dear : Biopsies taken [...] concerns or questions. Sincerely, Freddy Rachel MD Event Technicianfull fashioned garment knitter Co-Director, [facility] Section of Gastroenterology [place] [address] CC: Marcio Devlin, [address] [place] [phone] documented in this encounter H&P Notes * [...] AM EDT Hospital Encounter Non-[place] [phone] Arrived 04/29/2024 9:50 AM EDT [place] [phone] Luis Alfredo Velazquez MD [facility] [place] [address] 04/29/2024 9:50 AM [place] [phone] Luis Alfredo Velazquez MD [facility] [place] [address] 06/07/2024 2:30 PM EDT TH Visit (TeleHealth) Gastroenterology at [place] [phone] Dajuan Rachel MD [facility] [place] [address] 07/02/2024 2:00 PM EDT Appointment Non-Invasive Cardiology Lab [place] [phone] Luis Alfredo Velazquez MD [facility] [place] [address] 07/02/2024 4:00 PM EDT Office Visit Cardiology at [place] [phone] Mars Green PA [facility] [place] [address] 07/02/2024 4:40 PM EDT Office Visit Cardiology at [address] [phone] Luis Alfredo Velazquez MD [facility] [place] [address] documented as of this encounter Procedures Procedure [...] 12:29 PM EST Colonoscopy, Remv Lesn, Snare ([id number]) 09/24/2022 12:05 PM EST Ulcerative pancolitis with complication Colonoscopy, Biopsy ([id number]) 09/24/2022 12:05 PM EST Ulcerative pancolitis with complication COLONOSCOPY Routine 09/24/2022 10:54 AM EST documented in this encounter Results * Specimen to Pathology (09/24/2022 12:43 PM EST) AP Specimen 09/24/2022 12:4 3 PM EST 09/24/2022 12:[address] [facility] - 09/24/2022 12:43 PM EST Specimen requisition ordered. ??Separate Pathology report to follow L Jose Rachel MD PATHOLOGY/CYTOLOGY O IRMA Performing Organization Address [facility]/ZIP Co de Phone Number [facility] [place] [address] * Specimen to Pathology (09/24/2022 12:43 PM EST) AP Specimen 09/24/2022 12:4 3 PM EST 09/24/2022 12:[address] [facility] - 09/24/2022 12:43 PM EST Specimen requisition ordered. ??Separate Pathology report to follow L Jose Rachel MD PATHOLOGY/CYTOLOGY O IRMA Performing Organization Address City/[facility]/[place] [address] * Specimen to Pathology (09/24/2022 12:43 PM EST) AP Specimen 09/24/2022 12:4 3 PM EST 09/24/2022 12:[address] [facility] - 09/24/2022 12:43 PM EST Specimen requisition ordered. ??Separate Pathology report to follow L Jose Rachel MD PATHOLOGY/CYTOLOGY O IRMA Performing Organization Address [facility] [place] [address] * Specimen to Pathology (09/24/2022 12:43 PM EST) AP Specimen 09/24/2022 12:4 3 PM EST 09/24/2022 12:[address] [facility] - 09/24/2022 12:43 PM EST Specimen requisition ordered. ??Separate Pathology report to follow L Jose Rachel MD PATHOLOGY/CYTOLOGY O IRMA Performing Organization Address [facility] [place] [address] * Specimen to Pathology (09/24/2022 12:43 PM EST) AP Specimen 09/24/2022 12:4 3 PM EST 09/24/2022 12:[address] [facility] - 09/24/2022 12:43 PM EST Specimen requisition ordered. ??Separate Pathology report to follow L Jose Rachel MD PATHOLOGY/CYTOLOGY O IRMA Performing Organization Address [facility] [place] [address] * Surgical Pathology Report (09/24/2022 12:29 PM EST) FINAL DIAGNOSIS (AP) [id number] ? Location: 4T; EA11; A The signing [...] MD Verified: ??09/27/2022 17:03 ??Pathologist Performed at: ??-[facility] Dept. of Pathology, [place] [address] Dictaphone Technician: Dg Brown MD, FCAP, ??CLIA Certificate: [id number] SPECIMEN(S) SUBMITTED A - Targeted biopsies at hepatic flexure, biopsy (4) B - Hepatic flexure polyp, excision (1) C - Targeted biopsies at 37cm, biopsy (4) D - Targeted biopsies at 15cm, biopsy (4) E - Targeted biopsies at ano-rectal junction, biopsy (4) CLINICAL INFORMATION 233-fium-nns female with ulcerative colitis SPECIMEN PROCESSING A [...] labeled E1. ??nrl 09/27/2022 5:[address] [facility] GI Biopsy 09/24/2022 12:2 9 [...] L Jose Rachel MD PATHOLOGY/CYTOLOGY O RDERABLES [facility] [place] [address] * COLONOSCOPY (09/24/2022 10:54 AM EST) COLONOSCOPY [facility] Endoscopy ___ Procedure Date: 09/24/2022 10:54 AM ? Patient Name: Kim Funes ? Date of : 1960 ? Age: 62 ? Order #: [id number] ? Instrument Name: [id number] ? ___ Procedure: ? Colonoscopy Indications: ? [...] preparation was evaluated ? using the BBPS ([place] Bowel ? Preparation Scale) with scores of: [...] RN) documented in this encounter Care Teams Mat Machine Operator Relationship Specialty Start Date End Date Marcio Devlin DO [address] [place] [id number] PCP - General Family Medicine 11/11/17 documented as of this encounter
--- OUTSIDE RECORDS SUMMARY | 2024-04-16 00:24 | XMS_ITS | Encounter Summary ---
Author Organization [facility] [place] [address] Care Team Providers Care Swaging Machine Operator Name Role Phone Marcio Devlin DO Primary Care Provider [phone] Encounter Details Date Type Department Care Team (Late st Contact Info) Description 05/16/2022 Orders Only [place] [phone] Rachelle Acevedo, RN Social History Tobacco Use [...] AM EDT Hospital Encounter Non-[place] [address] Arrived 04/29/2024 9:50 AM EDT [place] [phone] [address] [facility] [address] 04/29/2024 9:50 AM EDT [place] [phone] [address] [facility] [place] [address] 06/07/2024 2:30 PM EDT TH Visit (TeleHealth) Gastroenterology at [place] [address] [facility] [place] [address] 07/02/2024 2:00 PM EDT Appointment Non-Invasive Cardiology Lab [address] Luis Alfredo Velazquez MD [facility] [place] [address] 07/02/2024 4:00 PM EDT [place] [address] [facility] [place] [address] 07/02/2024 4:40 PM EDT Office Visit Cardiology at [place] [address] [address] [facility] [place] [address] documented as of this encounter Visit Diagnoses Not on filedocumented in this encounter Care Teams Swaging Machine Operator Relationship Specialty Start Date End Date Marcio Devlin DO [address] [place] [address] PCP - General Family Medicine 11/11/17 documented as of this encounter
--- OUTSIDE RECORDS SUMMARY | 2024-04-16 00:24 | XMS_ITS | Encounter Summary ---
Author Organization [facility] [place] [address] Care Team Providers Care Brim Flexer Name Role Phone Marcio Devlin DO Primary Care Provider [phone] Reason for Visit * Reason Onset Date Comments Medication Refill 02/28/2022 Encounter Details Date Type Department Care Team (Late st Contact Info) Description 02/28/2022 Refill [place] [address] Dajuan Rachel MD [facility] [place] [address] Ulcerative pancolitis without complication Social History Tobacco [...] AM EDT Hospital Encounter Non-Invasive Cardiology Lab [facility] [place] [address] Arrived 04/29/2024 9:50 AM EDT Appointment MRI at [place] [address] LuisA lfredo Velazquez MD [facility] [place] [address] 04/29/2024 9:50 AM EDT Appointment MRI at [place] [address] Luis Alfredo Velazquez MD [facility] [place] [address] 06/07/2024 2:30 PM EDT TH Visit (TeleHealth) Gastroenterology at [place] [address] Dajuan Rachel MD [facility] [place] [address] 07/02/2024 2:00 PM EDT Appointment Non-Invasive Cardiology Lab [address] Luis Alfredo Velazquez MD [facility] [place] [address] 07/02/2024 4:00 PM EDT Office Visit Cardiology at [place] [address] Mars Green PA [facility] [place] [address] 07/02/2024 4:40 PM EDT Office Visit Cardiology at [place] [address] Luis Alfredo Velazquez MD [facility] [place] [address] documented as of this encounter Visit Diagnoses Diagnosis Ulcerative pancolitis without complication documented in this encounter Care Teams Brim Flexer Relationship Specialty Start Date End Date Marcio Devlin DO [address] [place] [address] PCP - General Family Medicine 11/11/17 documented as of this encounter
--- OUTSIDE RECORDS SUMMARY | 2024-04-16 00:24 | XMS_ITS | Encounter Summary ---
Author Organization [facility] [place] [address] Care Team Providers Care Med Asst Name Role Phone Marcio Devlin DO Primary Care Provider [phone] Encounter Details Date Type Department Care Team (Late st Contact Info) Description 05/15/2022 Orders Only [place] [phone] Rachelle Acevedo, RN Ulcerative pancolitis with complication [...] AM EDT Hospital Encounter Non-[place] [address] Arrived 04/29/2024 9:50 [place] [address] Luis Alfredo Velazquez MD [facility] [place] [address] 04/29/2024 9:50 AM EDT Appointment MRI at [place] [phone] Luis Alfredo Velazquez MD [facility] [place] [address] 06/07/2024 2:30 PM EDT TH Visit (TeleHealth) Gastroenterology at [place] [phone] Dajuan Rachel MD [facility] [place] [address] 07/02/2024 2:00 PM EDT Appointment Non-[place]vasive [place] [address] Luis Alfredo Velazquez MD [facility] [place] [address] 07/02/2024 4:00 PM EDT Office [place] [address] Mars Green PA [facility] [place] [address] 07/02/2024 4:40 PM EDT Office Visit Cardiology at [place] [phone] Luis Alfredo Velazquez MD [facility] [place] [address] documented as of this encounter Visit Diagnoses Diagnosis Ulcerative pancolitis with complication documented in this encounter Care Teams Med Asst Relationship Specialty Start Date End Date Marcio Devlin DO [address] [place] [address] PCP - General Family Medicine 11/11/17 documented as of this encounter
--- OUTSIDE RECORDS SUMMARY | 2024-04-16 00:25 | XMS_ITS | Encounter Summary ---
Author Organization [facility] [place] [address] Care Team Providers Care Stage Setting Painter Apprentice Name Role Phone Marcio Devlin DO Primary Care Provider [phone] Reason for Visit * Reason Comments Follow-up Encounter Details Date Type Department Care Team (Late st Contact Info) Description 12/13/2021 9:00 AM EDT Office [place] [address] Gabe Fong MD [facility] [address] Ankylosing spondylitis of cervical region; Neck pain; [...] AM EDT Hospital Encounter [place] [address] Arrived 04/29/2024 9:50 AM [place] [address] Luis Alfredo Velazquez MD [facility] [place] [address] 04/29/2024 9:50 AM EDT Appointment MRI at [place] [phone] Luis Alfredo Velazquez MD [facility] [place] [address] 06/07/2024 2:30 PM EDT TH Visit (TeleHealth) Gastroenterology at [address] Dajuan Rachel MD [facility] [place] [address] 07/02/2024 2:00 PM EDT Appointment [place] [address] Luis Alfredo Velazquez MD [facility] [place] [address] 07/02/2024 4:00 PM EDT Office Visit Cardiology at [place] [phone] [place], [place] [facility] [place] [place] [address] 07/02/2024 4:40 PM EDT Office Visit Cardiology at [place] [phone] Luis Alfredo Velazquez MD [facility] [place] [address] documented as of this encounter Procedures Procedure Name Priority Date/Time Associated Diagnosis Comments [facility] TPMT ACTIVITY PROFILE Routine 12/13/2021 10:05 AM [...] 10:05 AM EDT) Neutrophils % 60.0 % [facility] Neutr Abs (ANC) 4.27 1.70 - 6.10 x10(3)/[facility] Lymphocytes % 28.7 % [facility] Lymphocytes Abs 2.0 0.9 - 3.2 x10(3)/[facility] Monocytes % 8.4 % [facility] Monocyte Abs 0.6 0.3 - 0.9 x10(3)/[facility] Eosinophils % 2.2 % [facility] Eosinophils Abs 0.2 0.0 - 0.4 x10(3)/[facility] LABOR[facility] Basophils % 0.4 % [facility] Basophils Abs 0.0 0.0 - 0.1 x10(3)/[facility] LABOR[facility] Immature Gran % 0.30 % [facility] Comment: Immature granulocytes(IG's)percentage and absolute count will include metamyelocytes, myelocytes, and promyelocytes. Blood smears from CBCs yielding IG's will be scanned manually for concordance. If this scan disagrees with the automated IG or if promyelocytes are noted, a manual differential will be performed. Melanie Gran Abs 0.02 0.00 - 0.04 x10(3)/[facility] LABOR[facility]ORY Blood 12/13/2021 10:0 5 AM EDT 12/13/2021 10:18 AM EDT Narrative Resulting Agency Comment Spec In Lab Gabe Fong MD HEMATOLOGY ORDERABLE S [facility] [place] [address] * (ABNORMAL) Hemogram (12/13/2021 10:05 AM EDT) WBC 7.1 4.0 - 9.5 x10(3)/[facility] LABOR[facility]ORY RBC 4.60 4.00 - 5.21 x10(6)/[facility] Hemoglobin 13.5 11.7 - 15.5 g/dL [facility] Hematocrit 42.1 35.7 - 45.8 % [facility] MCV 91.5 82.6 - 94.4 [facility] MCH 29.3 27.1 - 32.0 pg [facility] MCHC 32.1 31.7 - 35.0 g/dL [facility] Platelets 283 145 - 357 x10(3)/[facility] RDWSD 47.9(H) 37.[address] [facility] RDWCV 14.4(H) 11.5 - 14.1 % [facility] MPV 9.9 7.6 - 12.9 [facility] LAB[facility]ORY nRBC % Auto 0.0 % [facility] nRBC Abs Auto 0.000 0.000 - 0.000 x10(3)/[facility] LAB[facility] Blood 12/13/2021 10:0 5 AM EDT 12/13/2021 10:18 AM EDT Narrative Resulting Agency Comment Spec In Lab Gabe Fong MD HEMATOLOGY ORDERABLE S Performing Organization Address City/State/[facility] Co de Phone Number [facility] [place] [address] * TPMT Activity Profile, RBC (12/13/2021 10:05 AM EDT) TPMT Activity Profile, RBC Test ? Result ?Flag ??Unit ? RefValue TPMT Activity Profile, RBC ??Interpretation ? SEE COMMENTS ?*Normal* In this whole blood sample, the profile of ?activity of thiopurine methyltransferase using three ?different substrates was normal or essentially normal. ? -ADDITIONAL INFORMATION--------- ?Liquid Chromatography-[facility] [employer] Mass Spectrometry (LC-MS/MS) ?This test was developed and its performance characteristics ?determined by [facility] in a manner consistent with CLIA ?requirements. This test has not been cleared or approved by ?the U.S. Food and Drug Administration. ??6-Methylmercaptopu rine ? 3.63 ?nmol/mL/h ??3.00-6.66 ??6-Methylmercaptopu rine riboside ?7.44 ?nmol/mL/h ??5.04-9.57 ??6-Methylthioguanin e riboside ? 4.87 ?nmol/mL/h ??2.70-5.84 ??Reviewed By ?Nathaniel Serrato, Ph.D ?Test Performed by: ?[facility] ?[address] [place] [address] ?Agricultural Education Instructor: Oc Lorenzo M.D. Ph.D.; IA# [id number] [facility] Blood 12/13/2021 10:0 5 AM EDT 12/13/2021 3:01 PM EDT Narrative Resulting Agency Comment Spec In Lab Gabe Fong MD CHEMISTRY ORDERABLES Performing Organization Address [facility] Co de Phone Number [facility] [place] [address] * Hepatitis B Core Antibody, Total (12/13/2021 10:05 AM EDT) Hep B Core Ab Negative Negative [facility] Blood 12/13/2021 10:0 5 AM EDT 12/13/2021 10:18 AM EDT Narrative Resulting Agency Comment Spec In Lab Gabe Fong MD CHEMISTRY ORDERABLES Performing Organization Address [facility] Co de Phone Number [facility] [place] [address] * Creatinine (12/13/2021 10:05 AM EDT) Creatinine 0.88 0.70 - 1.20 mg/dL [facility] Estimated GFR 71 >=60 mL/min/1. 73 m?? [facility] Comment: This patient? s estimated [...] Fong MD CHEMISTRY ORDERABLES Performing Organization Address City/[facility]/ZIP Co de Phone Number [facility] [place] [address] * (ABNORMAL) Hepatic Function Panel (12/13/2021 10:05 AM EDT) Total Protein 8.4(H) 6.1 - 8.0 g/dL [facility] Albumin 4.3 3.2 - 5.2 g/dL [facility] AST 23 0 - 30 unit/L [facility] ALT 17 0 - 30 unit/L [facility] Alk Phos 134(H) 35 - 105 unit/L [facility] Total Bilirubin 0.3 0.2 - 1.3 mg/dL [facility] Bili, Direct 0.1 0.0 - 0.3 mg/dL [facility] Blood 12/13/2021 10:0 5 AM EDT 12/13/2021 10:18 AM EDT Narrative Resulting Agency Comment Spec In Lab Gabe Fong MD CHEMISTRY ORDERABLES Performing Organization Address [facility] Co de Phone Number [facility] [place] [address] * (ABNORMAL) CRP, acute inflammation (12/13/2021 10:05 AM EDT) CRP 23.9(H) <=4.9 mg/L [facility] Blood 12/13/2021 10:0 5 AM EDT 12/13/2021 10:18 AM EDT Narrative Resulting Agency Comment Spec In Lab Gabe Fong MD CHEMISTRY ORDERABLES Performing Organization Address City/[facility]/ZIP Co de Phone Number [facility] [address] * (ABNORMAL) Sedimentation rate (12/13/2021 10:05 AM EDT) Sed Rate 70(H) 2 - 39 mm/hr [facility] Comment: Effective August 25, 2019 new capillary photometric technology has resulted in a change in reference ranges. It is recommended that each ESR result be reviewed with its own age appropriate reference range. Blood 12/13/2021 10:0 5 AM EDT 12/13/2021 10:18 AM EDT Narrative Resulting Agency Comment Spec In Lab Gabe Fong MD HEMATOLOGY ORDERABLE S [facility] [place] [place] [address] * Lipid Panel (Reflex Direct LDL) (12/13/2021 10:05 AM EDT) Chol, Total 146 mg/dL [facility] Comment: Lower Risk: <200 mg/dL Average Risk: 200-239 mg/dL Higher Risk: >wo=972 mg/dL Triglycerides 343 mg/dL [facility] Comment: Average Risk/Lower Risk: <150 mg/dL Borderline High Risk: 150-199 mg/dL High Risk: 200-499 mg/dL Very High Risk: >og=859 mg/dL HDL 42 mg/dL [facility] Comment: Males: ?? Higher Risk: <40 mg/dL Females: ?? Higher Risk: <50 mg/dL LDL Cholesterol 35 mg/dL [facility] Comment: Lowest Risk: <100 mg/dL Lower Risk: 100-129 mg/dL Borderline High Risk: 130-159 mg/dL High Risk: 160-189 mg/dL Very High Risk: >sf=095 mg/dL Chol/HDL Ratio 3.5 ratio [facility] Lipid Interpretation See Note [facility] Comment: Lipid management should be guided by a patient? s ASCVD risk, goals and preferences. ACC/AHA Guidelines recommend high intensity statin if clinical ASCVD or LDL greater than or equal to 190 mg/dL. http://tinyurl.com/JTA-DWU-Eqgfbwoyk Adults aged 40-75 with LDL 70-189 mg/dL should have their 10 year ASCVD risk estimated with the ACC/AHA ASCVD risk manager financial http://tools.acc.org/HLAZW-Vyyb-Xecpievif/ Statin should be discussed if risk greater [...] In Lab Gabe Fong MD CHEMISTRY ORDERABLES [facility] [place] [address] * XR Cervical Spine 2 or 3 [...] have questions please contact the health manager long term care that requested your imaging first. ? Electronically signed by: Ricardo Campbell MD, [facility] ([phone]), at 12/13/2021 9:46 AM Narrative 12/13/2021 9:46 AM EDT EXAMINATION: XR [...] who have questions please contactthe health manager long term care that requested your imaging first. Electronically signed by: Ricardo Campbell MD, [facility]([phone]), at 12/13/2021 9:46 AM Gabe Fong MD [...] location documented in this encounter Care Teams Stage Setting Painter Apprentice Relationship Specialty Start Date End Date Marcio Devlin DO [address] [place] [address] PCP - General Family Medicine 11/11/17 documented as of this encounter
--- OUTSIDE RECORDS SUMMARY | 2024-04-16 00:25 | XMS_ITS | Encounter Summary ---
Author Organization [facility] Address [facility] [place] [address] Care Team Providers Care Elevator Operator Service Name Role Phone Marcio Devlin DO Primary Care Provider [phone] Encounter Details Date Type Department Care Team (Latest Contact Info) Description 11/21/2021 2:45 PM EST - 11/21/2021 11:59 PM EST Hospital Encounter XRay at [address] [place] [address] Gabe Fong MD [facility] [place] [address] Pain in left hip; Ulcerative colitis without [...] by mouth daily. SUMAtriptan (IMITREX) 20 mg/actuation Bronson, Non-Aerosol 1 spray as needed. 11/03/2017 metFORMIN [...] AM EDT Hospital Encounter Non-Invasive [place] [phone] Arrived 04/29/2024 9:50 AM EDT [place] [phone] Luis Alfredo Velazquez MD [facility] [place] [address] 04/29/2024 9:50 AM EDT [place] [address] Luis Alfredo Velazquez MD [facility] [place] [address] 06/07/2024 2:30 PM EDT TH Visit (TeleHealth) [place] [phone] Dajuan Rachel MD [facility] [place] [address] 07/02/2024 2:00 PM EDT Appointment Non-Invasive [place] [address] Luis Alfredo Velazquez MD [facility] [place] [address] 07/02/2024 4:00 PM EDT Office Visit Cardiology at [address] [address] [place] [facility] [place] [address] 07/02/2024 4:40 PM EDT Office Visit Cardiology at [address] [address] Luis Alfredo Velazquez MD [facility] [place] [address] documented as of this encounter Procedures Procedure [...] who have questions please contact the health caregivers homecare that requested your imaging first. ? Narrative 11/21/2021 3:55 PM EST EXAMINATION: XR [...] patients who have questions please contactthe health caregivers homecare that requested your imaging first. Gabe Fong MD IMG DX ORDERABLES documented in this encounter Visit Diagnoses Diagnosis Pain in left hip Pain in joint, pelvic region and thigh Ulcerative colitis without complications, unspecified location Inflammatory arthropathy Arthropathy, unspecified, site unspecified documented in this encounter Care Teams Elevator Operator Service Relationship Specialty Start Date End Date Marcio Devlin DO [address] [place] [address] PCP - General Family Medicine 11/11/17 documented as of this encounter
--- OUTSIDE RECORDS SUMMARY | 2024-04-16 00:25 | XMS_ITS | Encounter Summary ---
Author Organization [facility] [address] Care Team Providers Care Circus Trainer Name Role Phone Marcio Devlin DO Primary Care Provider [phone] Reason for Visit * Reason Comments Specialty Pharmacy Review Encounter Details Date Type Department Care Team (Late st Contact Info) Description 07/23/2021 Specialty Pharm[place] [phone] Adryan Crabtree, [facility] Social History Tobacco Use Types [...] Crabtree - 07/23/2021 11:59 PM EST The [facility] has completed a benefits investigation for Kim Graff Shantel to review their eligibility to fill at [facility]. Per patient's medication list they are prescribed STELARA 90 MG/ML and the medication is not able to be filled at the [facility]. documented in this encounter Plan of Treatment Upcoming Encounters Date Type Department Care Team (Late st Contact Info) Description 04/19/2024 10:00 AM EDT Hospital Encounter Non-Invasive Cardiology Lab [place] [phone] Arrived 04/29/2024 9:50 AM EDT Appointment MRI at [address]1000 Luis Alfredo Velazquez MD [facility] [place] [address] 04/29/2024 9:50 AM ED[place] [address] Luis Alfredo Velazquez MD [facility] [place] [address] 06/07/2024 2:30 PM EDT TH Visit (TeleHealth) [place] [address] Dajuan Rachel MD [facility] [place] [address] 07/02/2024 2:00 PM EDT Appointment Non-Invasive Cardiology Lab [place] [phone] Luis Alfredo Velazquez MD [facility] [address] 07/02/2024 4:00 PM EDT Office Visit Cardiology at [place] [phone] [place], YURIY [facility] [place] [phone] 07/02/2024 4:40 PM EDT Office Visit Cardiology at [address] [address] Luis Alfredo Velazquez MD [facility] [place] [address] documented as of this encounter Visit Diagnoses Not on filedocumented in this encounter Care Teams Circus Trainer Relationship Specialty Start Date End Date Marcio Devlin DO 4 [facility] [place] [address] PCP - General Family Medicine 11/11/17 documented as of this encounter
--- OUTSIDE RECORDS SUMMARY | 2024-04-16 00:25 | XMS_ITS | Encounter Summary ---
Author Organization [facility] [place] [address] Care Team Providers Care Professor Of Forest Planning Name Role Phone Marcio Devlin DO Primary Care Provider [phone] Reason for Referral * Consultation (Routine) - Closed Specialty Diagnoses / Procedures Referred By Missy escalera Referred To Contact Orthopaedics Diagnoses Pain in left hip Mass of joint of left hip Gabe Fong MD [facility] [address] [place] [address] [facility] [address] [place] [phone] Referral ID Status Reason Start Date Expiration Date V isits Requested Visits Authorized [id number] Closed Consult, Test & Treat 11/15/2021 11/15/2022 1 1 Reason for Visit * Reason Comments Follow-up Encounter Details Date Type Department Care Team (Late st Contact Info) Description 11/15/2021 9:00 AM EST Office [place] [address] Gabe Fong MD [facility] [address] [place] [address] Pain in left hip; Ulcerative colitis [...] AM EDT Hospital Encounter Non-Invasive [place] [address] Arrived 04/29/2024 9:50 AM EDT [place] [address] Luis Alfredo Velazquez MD [facility] [place] [address] 04/29/2024 9:50 AM EDT [place] [address] Luis Alfredo Velazquez MD [facility] [place] [address] 06/07/2024 2:30 PM EDT TH Visit (TeleHealth) Gastroenterology at [address]1000 Dajuan Rachel MD [facility] [place] [address] 07/02/2024 2:00 PM EDT Appointment Non-Invasive Cardiology Lab [place] [phone] Luis Alfredo Velazquez MD [facility] [place] [address] 07/02/2024 4:00 PM EDT Office Visit Cardiology at [place] [phone] [place] [facility] [place] [address] 07/02/2024 4:40 PM EDT Office Visit Cardiology at [place] [phone] Luis Alfredo Velazquez MD [facility] [address] [place], [place] [phone] Scheduled Referrals Name Type Priority Associated Diagnoses [...] who have questions please contact the health neonatal intensive care nurse that requested your imaging first. [...] patients who have questions please contactthe health neonatal intensive care nurse that requested your imaging first. Gabe Fong [...] unspecified documented in this encounter Care Teams Professor Of Forest Planning Relationship Specialty Start Date End Date Marcio Devlin DO [address] [place] [address] PCP - General Family Medicine 11/11/17 documented as of this encounter
--- OUTSIDE RECORDS SUMMARY | 2024-04-16 00:25 | XMS_ITS | Encounter Summary ---
Author Organization [facility] [place] [address] Care Team Providers Care Wind Farm Engineer Name Role Phone Marcio Devlin DO Primary Care Provider [phone] Reason for Visit * Reason Comments Specialty Pharmacy Review Stelara 90mg/m l syringe Encounter Details Date Type Department Care Team (Late st Contact Info) Description 12/13/2021 Specialty [place] [phone] Celeste Mayes, [facility] Social History Tobacco Use Types Packs/Day [...] Mayes - 12/13/2021 11:59 PM EDT The [facility] has completed a benefits investigation for Kim Graff Shantel to review their eligibility to fill at [facility]. Per patient's medication list they are prescribed Stelara 90mg/ml and the medication is not able to be filled at the [facility]. documented in this encounter Plan of Treatment Upcoming Encounters Date Type Department Care Team (Late st Contact Info) Description 04/19/2024 10:00 AM EDT Hospital Encounter Non-[place] [phone] Arrived 04/29/2024 9:50 AM EDT Appointment MRI at [address]1000 Luis Alfredo Velazquez MD [facility] [place] [address] 04/29/2024 9:50 AM [place] [address] Luis Alfredo Velazquez MD [facility] [place] [address] 06/07/2024 2:30 PM EDT TH Visit (TeleHealth) [place] [address] Dajuan Rachel MD [facility] [place] [address] 07/02/2024 2:00 PM EDT Appointment Non-[place] [address] Luis Alfredo Velazquez MD [facility] [place] [address] 07/02/2024 4:00 PM EDT Office Visit Cardiology at [address] [phone] [place] [facility] [place] [address] 07/02/2024 4:40 PM EDT Office Visit Cardiology at [address] [place] [address] Luis Alfredo Velazquez MD [facility] [place] [address] documented as of this encounter Visit Diagnoses Not on filedocumented in this encounter Care Teams Wind Farm Engineer Relationship Specialty Start Date End Date Marcio Devlin DO [address] [place], [place] [address] [place] [address] PCP - General Family Medicine 11/11/17 documented as of this encounter
--- OUTSIDE RECORDS SUMMARY | 2024-04-16 00:25 | XMS_ITS | Encounter Summary ---
Author Organization [facility] Address [facility] [place] [address] Care Team Providers Care Energy Engineer Name Role Phone Marcio Devlin DO Primary Care Provider [phone] Encounter Details Date Type Department Care Team (Late st Contact Info) Description 10/10/2021 Orders [place] [phone] Gabe Fong MD [facility] [address] [place] [place] [address] Ulcerative colitis without complications, unspecified location; High [...] AM EDT Hospital Encounter Non[place] [address] Arrived 04/29/2024 9:50 AM EDT Appointment MRI at [place] [address] Luis Alfredo Velazquez MD [facility] [place] [address] 04/29/2024 9:50 AM EDT Appointment MRI at [place] [address] Luis Alfredo Velazquez MD [facility] [place] [address] 06/07/2024 2:30 PM EDT TH Visit (TeleHealth) Gastroenterology at [place] [address] Dajuan Rachel MD [facility] [place] [address] 07/02/2024 2:00 PM EDT Appointment Non-Invasive Cardiology Lab [place] [address] Luis Alfredo Velazquez MD [facility] [place] [address] 07/02/2024 4:00 PM EDT Office Visit Cardiology at [place] [address] [place] [facility] [place] [address] 07/02/2024 4:40 PM EDT Office Visit Cardiology at [place] [phone] Luis Alfredo Velazquez MD [facility] [address] [place] [address] documented as of this encounter Visit Diagnoses Diagnosis Ulcerative colitis without complications, unspecified location High risk medication use Encounter for long-term (current) use of other medications Inflammatory arthropathy Arthropathy, unspecified, site unspecified documented in this encounter Care Teams Energy Engineer Relationship Specialty Start Date End Date Marcio Devlin DO [address] [place] [address] PCP - General Family Medicine 11/11/17 documented as of this encounter
--- OUTSIDE RECORDS SUMMARY | 2024-04-16 00:25 | XMS_ITS | Encounter Summary ---
[place] [address] Care Team Providers Care Valet Parking Attendant Name Role Phone Marcio Devlin DO Primary Care Provider [phone] Encounter Details Date Type Department Care Team (Latest Contact Info) Description 08/06/2021 10:30 AM EST Laboratory Appointment Lab 3L [place] [address] Ulcerative colitis without complications, unspecified [...] AM EDT Hospital Encounter Non-[place] [phone] Arrived 04/29/2024 9:50 AM EDT Appointment MRI at [address] Luis Alfredo Velazquez MD [facility] [place] [address] 04/29/2024 9:50 AM EDT Appointment MRI at [address]1000 Luis Alfredo Velazquez MD [facility] [place] [address] 06/07/2024 2:30 PM EDT TH Visit (TeleHealth) Gastroenterology at [address]1000 Dajuan Rachel MD [facility] [place] [address] 07/02/2024 2:00 PM EDT Appointment Non-Invasive Cardiology Lab [address]1000 Luis Alfredo Velazquez MD [facility] [place] [address] 07/02/2024 4:00 PM EDT Office Visit Cardiology at [place] [address] [address] [place] [facility] [place] [address] 07/02/2024 4:40 PM EDT [place] [address] Luis Alfredo Velazquez MD [facility] [place] [address] documented as of this encounter Procedures Procedure Name Priority Date/Time Associated Diagnosis Comments HC VENIPUNCTURE Routine 08/06/2021 10:15 AM EST Ulcerative colitis without complications, unspecified location High risk medication use Inflammatory arthropathy Morning joint stiffness documented in this encounter Results * [id number] Qualitative (08/06/2021 10:15 AM EST) G6PD Qual Negative screening for G6PD deficiency. [facility] Blood 08/06/2021 10:1 5 AM EST 08/06/2021 10:41 AM EST Narrative Resulting Agency Comment Spec In Lab Gabe Fong MD HEMATOLOGY ORDERABLE S Performing Organization Address City/State/[facility] Co de Phone Number [facility] [place] [address] documented in this encounter Visit Diagnoses Diagnosis Ulcerative colitis without complications, unspecified location High risk medication use Encounter for long-term (current) use of other medications Inflammatory arthropathy Arthropathy, unspecified, site unspecified Morning joint stiffness Stiffness of joint, not elsewhere classified, unspecified site documented in this encounter Care Teams Valet Parking Attendant Relationship Specialty Start Date End Date Marcio Devlin DO [address] [place] [address] PCP - General Family Medicine 11/11/17 documented as of this encounter
--- OUTSIDE RECORDS SUMMARY | 2024-04-16 00:25 | XMS_ITS | Encounter Summary ---
Author Organization [facility] [place] [address] Care Team Providers Care Structural Steel Worker Helper Name Role Phone Marcio Devlin DO Primary Care Provider [phone] Encounter Details Date Type Department Care Team (Late st Contact Info) Description 09/03/2021 Orders [place] [address] Lola Haley, [facility] [address] [place] [address] Social History Tobacco Use Types Packs/Day Years [...] AM EDT Hospital Encounter Non[place] [address] Arrived 04/29/2024 9:50 AM EDT Appointment MRI at [place] [address] Luis Alfredo Velazquez MD [facility] [place] [address] 04/29/2024 9:50 AM EDT Appointment MRI at [address]1000 Luis Alfredo Velazquez MD [facility] [place] [address] 06/07/2024 2:30 PM EDT TH Visit (TeleHealth) Gastroenterology at [address]1000 Dajuan Rachel MD [facility] [place] [address] 07/02/2024 2:00 PM EDT Appointment Non-Invasive Cardiology Lab [address]1000 Luis Alfredo Velazquez MD [facility] [place] [address] 07/02/2024 4:00 PM EDT Office Visit Cardiology at [address]1000 [place] PA [facility] [place] [address] 07/02/2024 4:40 PM EDT Office Visit Cardiology at [place] [phone] Luis Alfredo Velazquez MD [facility] [place] [address] documented as of this encounter Visit Diagnoses Not on filedocumented in this encounter Care Teams Structural Steel Worker Helper Relationship Specialty Start Date End Date Marcio Devlin DO [address] [place] [address] PCP - General Family Medicine 11/11/17 documented as of this encounter
--- OUTSIDE RECORDS SUMMARY | 2024-04-16 00:25 | XMS_ITS | Encounter Summary ---
Author Organization [facility] [place] [address] Care Team Providers Care Dinner Cook Name Role Phone Marcio Devlin DO Primary Care Provider [phone] Reason for Visit * Reason Onset Date Comments Medication Refill 09/04/2021 Encounter Details Date Type Department Care Team (Late st Contact Info) Description 09/04/2021 Refill [place] [address] Lola Haley, [facility] [place] [address] Social History Tobacco Use Types Packs/Day Years [...] AM EDT Hospital Encounter Non-[place] [address] Arrived 04/29/2024 9:50 AM EDT Appointment MRI at [place] [address] Luis Alfredo Velazquez MD [facility] [place] [address] 04/29/2024 9:50 AM EDT Appointment MRI at [place] [address] Luis Alfredo Velazquez MD [facility] [place] [address] 06/07/2024 2:30 PM EDT TH Visit (TeleHealth) Gastroenterology at [place] [address] Dajuan Rachel MD [facility] [place] [address] 07/02/2024 2:00 PM EDT Appointment Non-Invasive Cardiology Lab [place] [address] Luis Alfredo Velazquez MD [facility] [place] [address] 07/02/2024 4:00 PM EDT Office Visit Cardiology at [place] [address] [address] [place] [facility] [place] [address] 07/02/2024 4:40 PM EDT Office Visit Cardiology at [address]1000 Luis Alfredo Velazquez MD [facility] [place] [address] documented as of this encounter Visit Diagnoses Not on filedocumented in this encounter Care Teams Dinner Cook Relationship Specialty Start Date End Date Marcio Devlin DO [address] [place] [address] PCP - General Family Medicine 11/11/17 documented as of this encounter
--- OUTSIDE RECORDS SUMMARY | 2024-04-16 00:25 | XMS_ITS | Encounter Summary ---
Author Organization [facility] [place] [address] Care Team Providers Care Long Line Teamster Name Role Phone Marcio Devlin DO Primary Care Provider [phone] Reason for Visit * Reason Comments Specialty Pharmacy Review Encounter Details Date Type Department Care Team (Late st Contact Info) Description 09/17/2021 Specialty [place] [phone] Berenice Novak, [facility] Social History Tobacco Use Types Packs/Day [...] Novak - 09/17/2021 11:59 PM EST The [facility] has completed a benefits investigation for Kim Graff Shantel to review their eligibility to fill at [facility]. Per patient's medication list they are prescribed Stelara and the medication is not able to be filled at the [facility]. documented in this encounter Plan of Treatment Upcoming Encounters Date Type Department Care Team (Late st Contact Info) Description 04/19/2024 10:00 AM EDT Hospital Encounter Non-Invasive Cardiology Lab [place] [phone] Arrived 04/29/2024 9:50 [place] [address] Luis Alfredo Velazquez MD [facility] [place] [address] 04/29/2024 9:50 AM EDT Appointment MRI at [place] [phone] Luis Alfredo Velazquez MD [facility] [place] [address] 06/07/2024 2:30 PM EDT TH Visit (TeleHealth) Gastroenterology at [address]1000 Dajuan Rachel MD [facility] [place] [address] 07/02/2024 2:00 PM EDT Appointment Non-Invasive Cardiology Lab [place] [phone] Luis Alfredo Velazquez MD [facility] [place] [address] 07/02/2024 4:00 PM EDT Office Visit Cardiology at [address] [address] Mars [place] PA [facility] [place] [address] 07/02/2024 4:40 PM EDT Office Visit Cardiology at [address] [address] Luis Alfredo Velazquez MD [facility] [place] [address] documented as of this encounter Visit Diagnoses Not on filedocumented in this encounter Care Teams Long Line Teamster Relationship Specialty Start Date End Date Marcio Devlin DO [address] [facility] [place] [address] PCP - General Family Medicine 11/11/17 documented as of this encounter
--- OUTSIDE RECORDS SUMMARY | 2024-04-16 00:25 | XMS_ITS | Encounter Summary ---
Author Organization [facility] [place] [address] Care Team Providers Care Research Food Technologist Name Role Phone Marcio Devlin DO Primary Care Provider [phone] Reason for Visit * Reason Onset Date Comments Labs Only 08/02/2021 Encounter Details Date Type Department Care Team (Late st Contact Info) Description 08/02/2021 [place] [address] Alex Rodriguez, RN Labs Only [...] PM EST Call received from Lab @ [facility] advising [id number] Qualitative can not be done at [facility] and they donot send out either. They can send out a Quantitative, but will need provider order before they call the patient back tocome back in for more labs. Gabe Fong MD sent to Alex Rodriguez RN; P [facility] Rheumatology [place] Caller: Unspecified (Yesterday, ??3:00 PM) She needs to have it here then. Or at [facility] site I spoke with Kim and she will come here to have test done. documented in this encounter Plan of Treatment Upcoming Encounters Date Type Department Care Team (Late st Contact Info) Description 04/19/2024 10:00 AM EDT Hospital Encounter Non-Invasive Cardiology Lab [place] [address] Arrived 04/29/2024 9:50 AM EDT Appointment MRI at [place] [address] Luis Alfredo Velazquez MD [facility] [place] [address] 04/29/2024 9:50 AM EDT Appointment MRI at [place] [address] Luis Alfredo Velazquez MD [facility] [place] [address] 06/07/2024 2:30 PM EDT TH Visit (TeleHealth) Gastroenterology at [place] [address] Dajuan Rachel MD [facility] [place] [address] 07/02/2024 2:00 PM EDT Appointment Non[place] [address] Luis Alfredo Velazquez MD [facility] [place] [address] 07/02/2024 4:00 PM EDT Office Visit Cardiology at [address] [address] [place] PA [facility] [place] [address] 07/02/2024 4:40 PM EDT Office Visit Cardiology at [address] [phone] Luis Alfredo Velazquez MD [facility] [place] [address] documented as of this encounter Visit Diagnoses Not on filedocumented in this encounter Care Teams Research Food Technologist Relationship Specialty Start Date End Date Marcio Devlin DO [address] [place] [address] PCP - General Family Medicine 11/11/17 documented as of this encounter
--- OUTSIDE RECORDS SUMMARY | 2024-04-16 00:25 | XMS_ITS | Encounter Summary ---
Author Organization [facility] Address [facility] [place] [address] Care Team Providers Care Palliative Senior Np Name Role Phone Marcio Devlin DO Primary Care Provider [phone] Encounter Details Date Type Department Care Team (Late st Contact Info) Description 01/18/2022 9:30 AM EDT Office [place] [address] Gabe Fong MD [facility] [place] [address] Chronic left hip pain; Ankylosing spondylitis of [...] AM EDT Hospital Encounter Non-Invasive Cardiology Lab [place] [phone] Arrived 04/29/2024 9:50 AM EDT Appointment MRI at [place] [phone] Luis Alfredo Velazquez MD [facility] [place] [address] 04/29/2024 9:50 AM [place] [address] Luis Alfredo Velazquez MD [facility] [place] [address] 06/07/2024 2:30 PM EDT TH Visit (TeleHealth) Gastroenterology at [place] [phone] Dajuan Rachel MD [facility] [place] [address] 07/02/2024 2:00 PM EDT Appointment Non-Invasive Cardiology Lab [place] [phone] Luis Alfredo Velazquez MD [facility] [place] [address] 07/02/2024 4:00 PM EDT [place] [address] Mars [place] PA [facility] [place] [address] 07/02/2024 4:40 PM EDT Office Visit Cardiology at [place] [phone] Luis Alfredo Velazquez MD [facility] [place] [address] documented as of this encounter Visit Diagnoses [...] unspecified documented in this encounter Care Teams Palliative Senior Np Relationship Specialty Start Date End Date Marcio Devlin DO [address] [place] [address] PCP - General Family Medicine 11/11/17 documented as of this encounter
--- OUTSIDE RECORDS SUMMARY | 2024-04-16 00:25 | XMS_ITS | Encounter Summary ---
Author Organization [facility] [place] [address] Care Team Providers Care Wet Chemistry Analyst Name Role Phone Marcio Devlin DO Primary Care Provider [phone] Reason for Referral * Physical Therapy (Routine) - Closed Specialty Diagnoses / Procedures Referred By Contac t Referred To Contact Diagnoses Trochanteric bursitis of left hip Saurabh Mercado MD [facility] [place] [address] Referral ID Status Reason Start Date Expiration Date V isits Requested Visits Authorized [id number] Closed Evaluate and Treat 11/21/2021 05/20/2022 12 12 Reason for Visit * Reason Comments Follow-up L ROSS 2006 (Ginger) P AIN * Consultation (Routine) - Closed Specialty Diagnoses / Procedures Referred By Contac t Referred To Contact Orthopaedics Diagnoses Pain in left hip Mass of joint of left hip Gabe Fong MD [facility] [place] [address] [facility] Orthopaedics [address] [place] [phone] Referral ID Status Reason Start Date Expiration Date V isits Requested Visits Authorized [id number] Closed Consult, Test & Treat 11/15/2021 11/15/2022 1 1 Encounter Details Date Type Department Care Team (Late st Contact Info) Description 11/21/2021 4:00 PM EST Office [place] [address] Saurabh Mercado MD 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 She reports that she is only able [...] subsidence, loosening, or periprosthetic complication. Questionnaire Responses: [facility] Surgical Postop Visit 11/21/2021 PROMIS-10 General Health [...] to hospital since recent ortho surgery Yes [facility] Date of admission 03/10/2018 Discharge date 03/11/2018 Reason you went to hospital Hysterectomy Additional surgery on same body part No ROSS Grade 6 Pain in other HIP None Back pain at this moment Very mild Satisfaction with Treatment Satisfied Choose Same Treatment Again Probably yes Orthopeadics [facility] Response 11/21/2021 HOOS JR Scores 58.93 Spine [facility] Response 11/21/2021 HOOS JR Scores 58.93 ASSESSMENT/PLAN: [...] EDT Hospital Encounter Non-Invasive [place] [address] Arrived 04/29/2024 9:50 AM EDT Appointment MRI at [place] [phone] Luis Alfredo Velazquez MD [facility] [place] [address] 04/29/2024 9:50 AM [place] [address] Luis Alfredo Velazquez MD [facility] [place] [address] 06/07/2024 2:30 PM EDT TH Visit (TeleHealth) [place] [address] Dajuan Rachel MD [facility] [place] [address] 07/02/2024 2:00 PM EDT Appointment Non-Invasive [place] [address] Luis Alfredo Velazquez MD [facility] [place] [address] 07/02/2024 4:00 PM EDT Office Visit Cardiology at [address] [phone] Mars Green PA [facility] [place] [address] 07/02/2024 4:40 PM EDT Office Visit Cardiology at [address] [phone] Luis Alfredo Velazquez MD [facility] [place] [address] Scheduled Referrals Name Type Priority Associated Diagnoses Orde r Schedule Referral to Physical Therapy Outpatient Referral Routine Trochanteric bursitis of left hip Ordered: 11/21/2021 documented as of this encounter Visit Diagnoses Diagnosis Trochanteric bursitis of left hip Enthesopathy of hip region documented in this encounter Care Teams Wet Chemistry Analyst Relationship Specialty Start Date End Date Marcio Devlin DO [address] [place] [address] PCP - General Family Medicine 11/11/17 documented as of this encounter
--- OUTSIDE RECORDS SUMMARY | 2024-04-16 00:25 | XMS_ITS | Encounter Summary ---
Author Organization [facility] [place] [place] [address] Care Team Providers Care Instructional Coordinator Name Role Phone Marcio Devlin DO Primary Care Provider [phone] Reason for Referral * Diagnostic Test (Routine) - Closed Specialty Diagnoses / Procedures Referred By Contac t Referred To Contact Radiology Diagnoses Chronic left hip pain Procedures MRI Hip wo Contrast Left (Generic) MRI Hip wwo Contrast Left MRI Hip wo Contrast Left (Generic) Gabe Fong MD [facility] [address] [place] [address] [facility] Rad Mri [address] [place] [address] Referral ID Status Reason Start Date Expiration Date V isits Requested Visits Authorized [id number] Closed Specialty Service Requested 12/25/2021 06/26/2023 1 1 Reason for Visit * Diagnostic Test (Routine) - Closed Specialty Diagnoses / Procedures Referred By Contac t Referred To Contact Radiology Diagnoses Chronic left hip pain Procedures MRI Hip wo Contrast Left (Generic) MRI Hip wwo Contrast Left MRI Hip wo Contrast Left (Generic) Gabe Fong MD [facility] [address] [place] [address] [facility] Rad Mri [address] [place] [address] Referral ID Status Reason Start Date Expiration Date V isits Requested Visits Authorized [id number] Closed Specialty Service Requested 12/25/2021 06/26/2023 1 1 Encounter Details Date Type Department Care Team (Latest Contact Info) Description 02/04/2022 12:08 PM EDT - 02/04/2022 11:59 PM EDT Hospital Encounter Radiology MRI at [place] [address] [place] [address] Gabe Fong MD [facility] [address] [place] [address] Chronic left hip pain Discharge Disposition: Home [...] by mouth daily. SUMAtriptan (IMITREX) 20 mg/actuation [place], Non-Aerosol 1 spray as needed. 11/03/2017 metFORMIN [...] AM EDT Hospital Encounter Non-Invasive [place] [phone] Arrived 04/29/2024 9:50 AM EDT Appointment MRI at [place] [phone] Luis Alfredo Velazquez MD [facility] [place] [address] 04/29/2024 9:50 AM EDT [place] [phone] Luis Alfredo Velazquez MD [facility] [place] [address] 06/07/2024 2:30 PM EDT TH Visit (TeleHealth) [place] [address] Dajuan Rachel MD [facility] [place] [address] 07/02/2024 2:00 PM EDT Appointment Non-Invasive [place] [address] Luis Alfredo Velazquez MD [facility] [place] [address] 07/02/2024 4:00 PM EDT Office Visit Cardiology at [address] [address] Mars Green PA [facility] [place] [address] 07/02/2024 4:40 PM EDT Office Visit Cardiology at [address] [place] [address] Luis Alfredo Velazquez MD [facility] [place] [address] documented as of this encounter [...] that requested your imaging first. ? Narrative 02/04/2022 4:47 PM EDT EXAMINATION: MRI HIP WO CONTRAST LEFT (GENERIC) CLINICAL HISTORY: Hip replacement, nerve damage suspected; UC arthritis with hip pain and signicant tedenterness to palpation UC arthritis with hip pain and signicant tedenterness to palpation TECHNIQUE: Noncontrast MRI of the left hip was performed using axial oblique, coronal and sagittal PD FS sequences. Full pelvis yvfpa-zj-aluq axial T1, coronal T1 and STIR sequences [...] and sagittal PD FS sequences. Full pelvis goeqy-nt-xinn axialT1, coronal T1 and STIR sequences are [...] care worker that requested your imaging first. Gabe Fong MD IMG MRI ORDERABLES documented in this encounter Visit Diagnoses Diagnosis Chronic left hip pain Pain in joint, pelvic region and thigh documented in this encounter Care Teams Instructional Coordinator Relationship Specialty Start Date End Date Marcio Devlin DO [address] [place] [address] PCP - General Family Medicine 11/11/17 documented as of this encounter
--- OUTSIDE RECORDS SUMMARY | 2024-04-16 00:25 | XMS_ITS | Encounter Summary ---
Author Organization [facility] [place] [address] Care Team Providers Care Freight Elevator Operator Name Role Phone Marcio Devlin DO Primary Care Provider [phone] Encounter Details Date Type Department Care Team (Late st Contact Info) Description 07/09/2021 Tele[place] [address] Cedric Azar RN Social History [...] Stelara SQ dose. Got labs done at [facility] but wasn't sure if she needed Stelara [...] AM EDT Hospital Encounter Non-Invasive [place] [address] Arrived 04/29/2024 9:50 AM EDT Appointment MRI at [place] [phone] Luis Alfredo Velazquez MD [facility] [address] 04/29/2024 9:50 [place] [address] Luis Alfredo Velazquez MD [facility] [address] 06/07/2024 2:30 PM EDT TH Visit (TeleHealth) [place] [address] Dajuan Rachel MD [facility] [place] [address] 07/02/2024 2:00 PM EDT Appointment Non-Invasive [place] [address] Luis Alfredo Velazquez MD [facility] [address] 07/02/2024 4:00 PM EDT Office Visit Cardiology at [address] [address] Mars Green PA [facility] [address] 07/02/2024 4:40 PM EDT Office Visit Cardiology at [address] [address] Luis Alfredo Velazuqez MD [facility] [address] documented as of this encounter Visit Diagnoses Not on filedocumented in this encounter Care Teams Freight Elevator Operator Relationship Specialty Start Date End Date Marcio Devlin DO [address] [place] [address] PCP - General Family Medicine 11/11/17 documented as of this encounter
--- OUTSIDE RECORDS SUMMARY | 2024-04-16 00:25 | XMS_ITS | Encounter Summary ---
[place] [address] Care Team Providers Care Transportation Broker Name Role Phone Marcio Devlin DO Primary Care Provider [phone] Reason for Visit * Reason Comments Prior Authorization Stelara 90mg/ml SOSY Encounter Details Date Type Department Care Team (Late st Contact Info) Description 01/22/2022 Specialty [place] [id number] Tiff Anglin CPHT Social History Tobacco Use [...] Pharmacy, Medication Prior Authorization Submission Patient: Kim Stricklandeneuve Patient : 1960 Patient Address: [address] [place] [phone] (home) Medication Name: STELARA 90 MG/ML SUBCUTANEOUS SYRINGE Medication ID: [id number] Subscriber Insurance: [employer] ([facility]) Subscriber Insurance Comment: Phone: [phone] Fax: Physician: Dajuan BERRY Physician Comment: Sent Via: Fax Truong: Ref/Case/PA#: [id number] Medication Strength Frequency Requested: Stelara 90mg/ml SOSY. Inject the contents of one syringe (90mg) subcutaneously once every 8 weeks Qty/Day Supply: New Start: Renewal Diagnosis & ICD-10 Code: K51.90 Patient Notified: No Submission Notes: RX#[id number] PA sent through [employer]. Tiff Anglin CPHT 01/22/22 9:30 AM documented in this encounter Plan of Treatment Upcoming Encounters Date Type Department Care Team (Late st Contact Info) Description 04/19/2024 10:00 AM EDT Hospital Encounter Non-[place]vasive [place] [address] Arrived 04/29/2024 9:50 AM EDT [place] [phone] Luis Alfredo Velazquez MD [facility] [place] [address] 04/29/2024 9:50 AM EDT [place] [phone] Luis Alfredo Velazquez MD [facility] [place] [address] 06/07/2024 2:30 PM EDT TH Visit (TeleHealth) Gastroenterology at [address] Dajuan Berry MD [facility] [place] [address] 07/02/2024 2:00 PM EDT Appointment Non-Invasive Cardiology Lab [address]1000 Luis Alfredo Velazquez MD [facility] [place] [address] 07/02/2024 4:00 PM EDT Office [place] [address] [place] [facility] [place] [address] 07/02/2024 4:40 PM EDT Office Visit Cardiology at [place] [phone] Luis Alfredo Velazquez MD [facility] [place] [address] documented as of this encounter Visit Diagnoses Not on filedocumented in this encounter Care Teams Transportation Broker Relationship Specialty Start Date End Date Marcio Devlin DO [address] [place] [address] PCP - General Family Medicine 11/11/17 documented as of this encounter
--- OUTSIDE RECORDS SUMMARY | 2024-04-16 00:25 | XMS_ITS | Encounter Summary ---
Author Organization [facility] Address [facility] [place] [address] Care Team Providers Care Microfilm Technician Name Role Phone Marcio Devlin DO Primary Care Provider [phone] Encounter Details Date Type Department Care Team (Late st Contact Info) Description 07/19/2021 Orders [place] [address] Gabe Fong MD [facility] [address] [address] Ulcerative colitis without complications, unspecified location; High [...] AM EDT Hospital Encounter Non-[place] [address] Arrived 04/29/2024 9:50 AM EDT Appointment MRI at [place] [address] Luis Alfredo Velazquez MD [facility] [place] [address] 04/29/2024 9:50 AM EDT Appointment MRI at [place] [address] Luis Alfredo Velazquez MD [facility] [place] [address] 06/07/2024 2:30 PM EDT TH Visit (TeleHealth) Gastroenterology at [place] [address] Dajuan Rachel MD [facility] [place] [address] 07/02/2024 2:00 PM EDT Appointment Non-Invasive Cardiology Lab [place] [address] Luis Alfredo Velazquez MD [facility] [place] [address] 07/02/2024 4:00 PM EDT Office Visit Cardiology at [place] [address] [place] [facility] [place] [address] 07/02/2024 4:40 PM EDT Office Visit Cardiology at [place] [phone] Luis Alfredo Velazquez MD [facility] [place] [address] documented as of this encounter Results * Hepatitis B Core Antibody, Total (12/13/2021 10:05 AM EDT) Hep B Core Ab Negative Negative [facility] Blood 12/13/2021 10:0 5 AM EDT 12/13/2021 10:18 AM EDT Narrative Resulting Agency Comment Spec In Lab Gabe Fong MD CHEMISTRY ORDERABLES [facility] [place] [id number] documented in this encounter Visit Diagnoses Diagnosis Ulcerative colitis without complications, unspecified location High risk medication use Encounter for long-term (current) use of other medications Inflammatory arthropathy Arthropathy, unspecified, site unspecified Morning joint stiffness Stiffness of joint, not elsewhere classified, unspecified site documented in this encounter Care Teams Microfilm Technician Relationship Specialty Start Date End Date Marcio Devlin DO [address] [place] [address] PCP - General Family Medicine 11/11/17 documented as of this encounter
--- OUTSIDE RECORDS SUMMARY | 2024-04-16 00:25 | XMS_ITS | Encounter Summary ---
Author Organization [facility] Address [facility] [place] [address] Care Team Providers Care Rail Assembler Name Role Phone Marcio Devlin DO Primary Care Provider [phone] Encounter Details Date Type Department Care Team (Late st Contact Info) Description 07/24/2021 Refill Gastro[place] [address] Dajuan [place] MD [facility] [place] [address] Ulcerative pancolitis without complication Social History Tobacco [...] AM EDT Hospital Encounter Non-[place] [address] Arrived 04/29/2024 9:50 AM EDT Appointment MRI at [place] [address] Luis Alfredo Velazquez MD [facility] [place] [address] 04/29/2024 9:50 AM EDT Appointment MRI at [place] [address] Luis Alfredo Velazquez MD [facility] [place] [address] 06/07/2024 2:30 PM EDT TH Visit (TeleHealth) Gastroenterology at [place] [address] Dajuan Rachel MD [facility] [address] 07/02/2024 2:00 PM EDT Appointment Non-Invasive Cardiology Lab [place] [address] Luis Alfredo Velazquez MD [facility] [place] [address] 07/02/2024 4:00 PM EDT Office Visit Cardiology at [place] [address] [place] [facility] [place] [address] 07/02/2024 4:40 PM EDT Office Visit Cardiology at [place] [address] Luis Alfredo Velazquez MD [facility] [place] [address] documented as of this encounter Visit Diagnoses Diagnosis Ulcerative pancolitis without complication documented in this encounter Care Teams Rail Assembler Relationship Specialty Start Date End Date Marcio Devlin DO [address] [place] [address] PCP - General Family Medicine 11/11/17 documented as of this encounter
--- OUTSIDE RECORDS SUMMARY | 2024-04-16 00:25 | XMS_ITS | Encounter Summary ---
Author Organization [facility] Address [facility] [place] [address] Care Team Providers Care Balcony Worker Name Role Phone Marcio Devlin DO Primary Care Provider [phone] Encounter Details Date Type Department Care Team (Late st Contact Info) Description 12/25/2021 Orders [place] [address] Gabe Fong MD [facility] [address] [place] [address] Social History Tobacco Use Types Packs/Day Years [...] AM EDT Hospital Encounter Non-[place]vasive [place] [address] Arrived 04/29/2024 9:50 AM EDT Appointment MRI at [place] [address] Luis Alfredo Velazquez MD [facility] [place] [address] 04/29/2024 9:50 AM EDT Appointment MRI at [address]1000 Luis Alfredo Velazquez MD [facility] [place] [address] 06/07/2024 2:30 PM EDT TH Visit (TeleHealth) Gastroenterology at [address]1000 Dajuan Rachel MD [facility] [place] [address] 07/02/2024 2:00 PM EDT Appointment Non-Invasive Cardiology Lab [address]1000 Luis Alfredo Velazquez MD [facility] [place] [address] 07/02/2024 4:00 PM EDT Office Visit Cardiology at [address]1000 [place] PA [facility] [place] [address] 07/02/2024 4:40 PM EDT Office Visit Cardiology at [place] [phone] Luis Alfredo Velazquez MD [facility] [place] [address] documented as of this encounter Visit Diagnoses Not on filedocumented in this encounter Care Teams Balcony Worker Relationship Specialty Start Date End Date Marcio Devlin DO [address] [place] [address] PCP - General Family Medicine 11/11/17 documented as of this encounter
--- OUTSIDE RECORDS SUMMARY | 2024-04-16 00:25 | XMS_ITS | Encounter Summary ---
Author Organization [facility] Address [facility] [place] [address] Care Team Providers Care Inker And Opaquer Name Role Phone Marcio Devlin DO Primary Care Provider [phone] Reason for Visit * Consultation (Routine) - Closed Specialty Diagnoses / Procedures Referred By Missy escalera Referred To Contact Dermatology Diagnoses Ulcerative pancolitis without complication Rash and other nonspecific skin eruption Rosemarie Morrow, SKIP [facility] [place] [address] Htr Dermatology [address] [place] [address] Referral ID Status Reason Start Date Expiration Date V isits Requested Visits Authorized [id number] Closed Consult, Test & Treat 07/09/2021 07/09/2022 1 1 Encounter Details Date Type Department Care Team (Late st Contact Info) Description 07/23/2021 4:15 PM EST Office Visit Dermatology at [facility] [address] [place] [address] Marc Augustine MD [facility] [place] [address] Folliculitis; Papular eczema Social History [...] Patient Instructions * Patient Instructions* Cecy Urias, [facility] - 07/23/2021 4:15 PM EST Sensitive Skin Care You have been diagnosed with a condition that requires a sensitive skin care regimen. It is very important to follow this plan as outlined below. ?? Discontinue ALL current personal care products. This includes soap, body wash, shampoo and conditioner, fragrance, nail iranian, lotions and creams, laundry soap and fabric [...] Mali intertrigo ulcerative colitis, currently treating with Sara Family History Details Melanoma N NMSC N [...] ??? N/A RTC: PRN []Note routed to design printer balloon []Recall placed in scheduling system []Appointment scheduled at checkout Scribe attestation: YG Bauer has performed the documentation for this encounter in thepresence of and acting as a scribe for Marc Augustine MD. I performed the above scribed service and agree with the accuracy of the documentation in this encounter. Reviewed and signed by: Marc Augustine MD [facility] documented in this encounter Plan of Treatment Upcoming Encounters Date Type Department Care Team (Late st Contact Info) Description 04/19/2024 10:00 AM EDT Hospital Encounter [place] [address] Arrived 04/29/2024 9:50 AM EDT Appointment MRI at [place] [address] Luis Alfredo Velazquez MD [facility] [place] [address] 04/29/2024 9:50 AM EDT Appointment MRI at [place] [address] Luis Alfredo Velazquez MD [facility] [place] [address] 06/07/2024 2:30 PM EDT TH Visit (TeleHealth) Gastroenterology at [place] [address] Dajuan Rachel MD [facility] [place] [address] 07/02/2024 2:00 PM EDT Appointment Non-Invasive Cardiology Lab [place] [address] Luis Alfredo Velazquez MD [facility] [place] [address] 07/02/2024 4:00 PM EDT Office Visit Cardiology at [address] [address] [place] PA [facility] [place] [address] 07/02/2024 4:40 PM EDT Office Visit Cardiology at [address] [phone] Luis Alfredo Velazquez MD [facility] [place] [address] documented as of this encounter Visit Diagnoses Diagnosis Folliculitis Other specified disease of hair and hair follicles Papular eczema Contact dermatitis and other eczema, due to unspecified cause documented in this encounter Care Teams Inker And Opaquer Relationship Specialty Start Date End Date Marcio Devlin DO [address] [place] [address] PCP - General Family Medicine 11/11/17 documented as of this encounter
--- OUTSIDE RECORDS SUMMARY | 2024-04-16 00:25 | XMS_ITS | Encounter Summary ---
Author Organization [place] [address] Care Team Providers Care First Press Operator Name Role Phone Marcio Devlin DO Primary Care Provider [phone] Reason for Visit * Reason Comments Left Hip Pain Encounter Details Date Type Department Care Team (Late st Contact Info) Description 01/23/2022 3:00 PM EDT Office [place] [address] Saurabh Mercado MD [facility] [place] [address] Trochanteric bursitis of left hip Social History [...] subsidence, loosening, or periprosthetic complication. Questionnaire Responses: [facility] Surgical Postop Visit 01/16/2022 PROMIS-10 General Health [...] Choose Same Treatment Again Definitely yes Orthopeadics [facility] Response 01/16/2022 HOOS JR Scores 64.66 Spine [facility] Response 01/16/2022 HOOS JR Scores 64.66 Trochanteric [...] AM EDT Hospital Encounter Non-[place] [address] Arrived 04/29/2024 9:50 AM [place] [address] Luis Alfredo Velazquez MD [facility] [place] [address] 04/29/2024 9:50 AM [place] [address] Luis Alfredo Velazquez MD [facility] [place] [address] 06/07/2024 2:30 PM EDT TH Visit (TeleHealth) [place] [address] Dajuan [place] MD [facility] [place] [address] 07/02/2024 2:00 PM EDT Appointment Non-Invasive Cardiology Lab [place] [phone] Luis Alfredo Velazquez MD [facility] [place] [address] 07/02/2024 4:00 PM EDT Office Visit Cardiology at [place] [phone] [place] PA [facility] [place] [address] 07/02/2024 4:40 PM EDT Office Visit Cardiology at [address] [phone] Luis Alfredo Velazquez MD [facility] [place] [address] documented as of this encounter Visit Diagnoses Diagnosis Trochanteric bursitis of left hip Enthesopathy of hip region documented in this encounter Care Teams First Press Operator Relationship Specialty Start Date End Date Marcio Devlin DO [address] [place] [address] PCP - General Family Medicine 11/11/17 documented as of this encounter
--- OUTSIDE RECORDS SUMMARY | 2024-04-16 00:25 | XMS_ITS | Encounter Summary ---
Author Organization [facility] [place] [address] Care Team Providers Care Used Building Materials Yard Worker Name Role Phone Marcio Devlin DO Primary Care Provider Encounter Details Date Type Department Care Team (Late st Contact Info) Description 09/04/2021 Telephone [place] [address] Yanely Mendenhall Social History Tobacco Use Types [...] AM EDT Hospital Encounter Non-[place] [address] Arrived 04/29/2024 9:50 AM EDT Appointment [place] [address] Luis Alfredo Velazquez MD [facility] [place] [address] 04/29/2024 9:50 AM EDT Appointment MRI at [place] [address] Luis Alfredo Velazquez MD [facility] [place] [address] 06/07/2024 2:30 PM EDT TH Visit (TeleHealth) Gastroenterology at [place] [phone] Dajuan Rachel MD [facility] [address] 07/02/2024 2:00 PM EDT Appointment Non-Invasive Cardiology Lab [place] [phone] Luis Alfredo Velazquez MD [facility] [place] [address] 07/02/2024 4:00 PM EDT Office Visit Cardiology at [place] [phone] [place] PA [facility] [place] [address] 07/02/2024 4:40 PM EDT Office Visit Cardiology at [place] [phone] Luis Alfredo Velazquez MD [facility] [place] [address] documented as of this encounter Visit Diagnoses Not on filedocumented in this encounter Care Teams Used Building Materials Yard Worker Relationship Specialty Start Date End Date Marcio Devlin DO [address] [place] [address] [place] [address] PCP - General Family Medicine 11/11/17 documented as of this encounter
--- OUTSIDE RECORDS SUMMARY | 2024-04-16 00:25 | XMS_ITS | Encounter Summary ---
Author Organization [facility] [place] [address] Care Team Providers Care Agricultural Commodities Inspector Name Role Phone Marcio Devlin DO Primary Care Provider [phone] Reason for Referral * Consultation (Routine) - Closed Specialty Diagnoses / Procedures Referred By Missy escalera Referred To Contact Dermatology Diagnoses Ulcerative pancolitis without complication Rash and other nonspecific skin eruption Rosemarie Morrow APRN [facility] [place] [address] Htr Dermatology [address] [place] [address] Referral ID Status Reason Start Date Expiration Date V isits Requested Visits Authorized [id number] Closed Consult, Test & Treat 07/09/2021 07/09/2022 1 1 Encounter Details Date Type Department Care Team (Late st Contact Info) Description 07/09/2021 Orders [place] [address] Rosemarie Morrow APRN [facility] [place] [address] Ulcerative pancolitis without complication; Rash and other [...] AM EDT Hospital Encounter Non-Invasive Cardiology Lab [place] [phone] Arrived 04/29/2024 9:50 AM EDT Appointment MRI at [place] [address] Luis Alfredo Velazquez MD [facility] [place] [address] 04/29/2024 9:50 AM EDT Appointment MRI at [place] [address] Luis Alfredo Velazquez MD [facility] [place] [address] 06/07/2024 2:30 PM EDT TH Visit (TeleHealth) Gastroenterology at [place] [phone] Dajuan [place] MD [facility] [place] [address] 07/02/2024 2:00 PM EDT Appointment Non-[place]vasive [place] [address] Luis Alfredo Velazquez MD [facility] [place] [address] 07/02/2024 4:00 PM EDT Office Visit Cardiology at [address] [phone] [place] PA [facility] [place] [address] 07/02/2024 4:40 PM EDT Office Visit Cardiology at [address] [phone] Luis Alfredo Velazquez MD [facility] [place] [address] Scheduled Referrals Name Type Priority Associated Diagnoses Orde r Schedule Referral to Dermatology Outpatient Referral Routine Ulcerative pancolitis without complication Rash and other nonspecific skin eruption Ordered: 07/09/2021 documented as of this encounter Visit Diagnoses Diagnosis Ulcerative pancolitis without complication Rash and other nonspecific skin eruption documented in this encounter Care Teams Agricultural Commodities Inspector Relationship Specialty Start Date End Date Marcio Devlin DO [facility] [place] [address] PCP - General Family Medicine 11/11/17 documented as of this encounter
--- OUTSIDE RECORDS SUMMARY | 2024-04-16 00:25 | XMS_ITS | Encounter Summary ---
Author Organization [facility] [place] [address] Care Team Providers Care Order Dispatcher Name Role Phone Marcio Devlin DO Primary Care Provider [phone] Reason for Referral * Diagnostic Test (Routine) - Closed Specialty Diagnoses / Procedures Referred By Missy escalera Referred To Contact Radiology Diagnoses Chronic left hip pain Procedures MRI Hip wo Contrast Left (Generic) MRI Hip wwo Contrast Left MRI Hip wo Contrast Left (Generic) Gabe Fong MD [facility] [address] [address] [facility] Rad Mri [address] [place] [address] Referral ID Status Reason Start Date Expiration Date V isits Requested Visits Authorized [id number] Closed Specialty Service Requested 12/25/2021 06/26/2023 1 1 Encounter Details Date Type Department Care Team (Late st Contact Info) Description 12/25/2021 Telephone [place] [address] Gabe Fong MD [facility] [address] [place] [address] Social History Tobacco Use Types Packs/Day [...] AM EDT Hospital Encounter Non-Invasive Cardiology Lab [address]1000 Arrived 04/29/2024 9:50 AM EDT Appointment MRI at [place] [address] Luis Alfredo Velazquez MD [facility] [place] [address] 04/29/2024 9:50 AM EDT Appointment MRI at [place] [address] Luis Alfredo Velazquez MD [facility] [place] [address] 06/07/2024 2:30 PM EDT TH Visit (TeleHealth) Gastroenterology at [address]1000 Dajuan Rachel MD [facility] [place] [address] 07/02/2024 2:00 PM EDT Appointment Non-[place] [address] Luis Alfredo Velazquez MD [facility] [address] [place], [place] [address] 07/02/2024 4:00 PM EDT Office Visit Cardiology at [address] [phone] [place] PA [facility] [place] [place] [address] 07/02/2024 4:40 PM EDT Office Visit Cardiology at [address] [phone] Luis Alfredo Velazquez MD [facility] [place] [address] documented as of this encounter [...] who have questions please contact the health palliative care physician that requested your imaging first. ? Electronically signed by: Anusha Ledezma MD, [facility] ([phone]), at 02/04/2022 4:47 PM Narrative 02/04/2022 4:47 PM EDT EXAMINATION: MRI HIP WO CONTRAST LEFT (GENERIC) CLINICAL HISTORY: Hip replacement, nerve damage suspected; UC arthritis with hip pain and signicant tedenterness to palpation UC arthritis with hip pain and signicant tedenterness to palpation TECHNIQUE: Noncontrast MRI of the left hip was performed using axial oblique, coronal and sagittal PD FS sequences. Full pelvis [id number] axial T1, coronal T1 and STIR sequences [...] and sagittal PD FS sequences. Full pelvis [id number] axialT1, coronal T1 and STIR sequences are [...] patients who have questions please contactthe health palliative care physician that requested your imaging first. Electronically signed by: Anusha Ledezma MD, [facility]([phone]), at 02/04/2022 4:47 PM Gabe Fong MD IMG MRI ORDERABLES documented in this encounter Visit Diagnoses Diagnosis Chronic left hip pain Pain in joint, pelvic region and thigh Chronic left hip pain Pain in joint, pelvic region and thigh documented in this encounter Care Teams Order Dispatcher Relationship Specialty Start Date End Date Marcio Devlin DO [address] [place] [address] PCP - General Family Medicine 11/11/17 documented as of this encounter
--- OUTSIDE RECORDS SUMMARY | 2024-04-16 00:25 | XMS_ITS | Encounter Summary ---
Author Organization [place] [address] Care Team Providers Care Artificial Snow Making Machine Operator Name Role Phone Marcio Devlin DO Primary Care Provider [phone] Reason for Visit * Reason Comments Prior Authorization Stelara 90mg/ml SOSY Encounter Details Date Type Department Care Team (Late st Contact Info) Description 07/18/2021 Specialty [place] [phone] Silviano Villalta, [facility] Social History Tobacco [...] Funes Patient : 1960 Patient Address: [address] [place] [phone] (home) Medication Name: STELARA 90 MG/ML SUBCUTANEOUS SYRINGE Medication ID: [id number] Subscriber Insurance: [employer] ([facility]) Subscriber Insurance Comment: Phone: [phone] Fax: Physician: Dajuan BERRY Physician Comment: Sent Via: [facility] Truong: [id number] Ref/Case/PA#: Medication Strength Frequency Requested: Inject the [...] STELARA 90 MG/ML SUBCUTANEOUS SYRINGE Medication ID: [id number] Approval Dates: 07/23/2021 to 07/22/2022 Insurance requirements/notes: None Other Notes: None Case/Reference #: [id number] Approval notification Received via: Fax Copay: n/a Copay assistance: Other (Enter Comment) Copay Notes: Insurance Mandate of [facility] unable to see co-pay. Insurance mandated Pharmacy: [facility] Fillable at [facility]: No Pharmacy staff will be [...] AM EDT Hospital Encounter Non-Invasive [place] [address] Arrived 04/29/2024 9:50 AM EDT Appointment MRI at [place] [phone] Luis Alfredo Velazquez MD [facility] [place] [address] 04/29/2024 9:50 AM EDT [place] [phone] Luis Alfredo Velazquez MD [facility] [place] [place] [address] 06/07/2024 2:30 PM EDT TH Visit (TeleHealth) Gastroenterology at [place] [phone] Dajuan Berry MD [facility] [place] [address] 07/02/2024 2:00 PM EDT Appointment Non-Invasive [place] [phone] Luis Alfredo Velazquez MD [facility] [place] [address] 07/02/2024 4:00 PM EDT Office Visit Cardiology at [address] [address] Mars Green PA [facility] [place] [address] 07/02/2024 4:40 PM EDT Office Visit Cardiology at [address] [phone] Luis Alfredo Velazquez MD [facility] [place] [address] documented as of this encounter Visit Diagnoses Not on filedocumented in this encounter Care Teams Artificial Snow Making Machine Operator Relationship Specialty Start Date End Date Marcio Devlin DO [address] [place] [address] PCP - General Family Medicine 11/11/17 documented as of this encounter
--- OUTSIDE RECORDS SUMMARY | 2024-04-16 00:25 | XMS_ITS | Encounter Summary ---
Author Organization [facility] Address [facility] [place] [address] Care Team Providers Care In Home Baby Sitter Name Role Phone Marcio Devlin DO Primary Care Provider [phone] Encounter Details Date Type Department Care Team (Late st Contact Info) Description 02/04/2022 Orders [place] [phone] Dajuan Rachel MD [facility] [place] [address] Social History Tobacco Use Types Packs/Day Years [...] EDT Hospital Encounter Non-Invasive [place] [phone] Arrived 04/29/2024 9:50 AM EDT Appointment MRI at [address] Luis Alfredo Velazquez MD [facility] [place] [address] 04/29/2024 9:50 AM EDT Appointment MRI at [address] Luis Alfredo Velazquez MD [facility] [place] [address] 06/07/2024 2:30 PM EDT TH Visit (TeleHealth) [place] [address] Dajuan Rachel MD [facility] [place] [address] 07/02/2024 2:00 PM EDT Appointment Non-Invasive Cardiology Lab [address]1000 Luis Alfredo Velazquez MD [facility] [place] [address] 07/02/2024 4:00 PM EDT Office Visit Cardiology at [address]1000 [place] PA [facility] [place] [place] [address] 07/02/2024 4:40 PM EDT Office Visit Cardiology at [place] [phone] Luis Alfredo Velazquez MD [facility] [place] [address] documented as of this encounter Visit Diagnoses Not on filedocumented in this encounter Care Teams In Home Baby Sitter Relationship Specialty Start Date End Date Marcio Devlin DO [address] [place] [address] PCP - General Family Medicine 11/11/17 documented as of this encounter
--- OUTSIDE RECORDS SUMMARY | 2024-04-16 00:25 | XMS_ITS | Encounter Summary ---
Author Organization [facility] [place] [address] Care Team Providers Care Fiscal Accounting Clerk Name Role Phone Marcio Devlin DO Primary Care Provider [phone] Reason for Visit * Reason Comments Medication Refill Encounter Details Date Type Department Care Team (Late st Contact Info) Description 09/04/2021 Ref[place] [address] Dajuan Rachel MD [facility] [place] [address] Ulcerative pancolitis without complication Social History Tobacco [...] AM EDT Hospital Encounter Non-[place] [address] Arrived 04/29/2024 9:50 AM EDT Appointment MRI at [place] [address] Luis Alfredo Velazquez MD [facility] [place] [address] 04/29/2024 9:50 AM EDT Appointment MRI at [place] [address] Luis Alfredo Velazquez MD [facility] [place] [address] 06/07/2024 2:30 PM EDT TH Visit (TeleHealth) Gastroenterology at [place] [address] Dajuan Rachel MD [facility] [place] [address] 07/02/2024 2:00 PM EDT Appointment Non-Invasive Cardiology Lab [place] [address] Luis Alfredo Velazquez MD [facility] [place] [address] 07/02/2024 4:00 PM EDT Office Visit Cardiology at [place] [address] [place] PA [facility] [place] [address] 07/02/2024 4:40 PM EDT Office Visit Cardiology at [address]1000 Luis Alfredo Velazquez MD [facility] [place] [address] documented as of this encounter Visit Diagnoses Diagnosis Ulcerative pancolitis without complication documented in this encounter Care Teams Fiscal Accounting Clerk Relationship Specialty Start Date End Date Marcio Devlin DO [address] [place] [address] PCP - General Family Medicine 11/11/17 documented as of this encounter
--- OUTSIDE RECORDS SUMMARY | 2024-04-16 00:25 | XMS_ITS | Encounter Summary ---
Author Organization [facility] Address [facility] [place] [address] Care Team Providers Care Flight Radio Officer Name Role Phone Marcio Devlin DO Primary Care Provider [phone] Encounter Details Date Type Department Care Team (Latest Contact Info) Description 12/13/2021 9:30 AM EDT - 12/13/2021 11:59 PM EDT Hospital Encounter XRay at [address] [place] [address] Gabe Fong MD [facility] [place] [address] Ankylosing spondylitis of cervical region; Neck pain; [...] by mouth daily. SUMAtriptan (IMITREX) 20 mg/actuation Leroy, Non-Aerosol 1 spray as needed. 11/03/2017 metFORMIN [...] AM EDT Hospital Encounter Non-Invasive [place] [address] Arrived 04/29/2024 9:50 AM [place] [phone] Luis Alfredo Velazquez MD [facility] [place] [address] 04/29/2024 9:50 AM ED[place] [address] Luis Alfredo Velazquez MD [facility] [place] [address] 06/07/2024 2:30 PM EDT TH Visit (TeleHealth) [place] [phone] Dajuan Rachel MD [facility] [place] [address] 07/02/2024 2:00 PM EDT Appointment Non-Invasive Cardiology Lab [place] [phone] Luis Alfredo Velazquez MD [facility] [place] [address] 07/02/2024 4:00 PM EDT Office Visit Cardiology at [address] [address] [place] [facility] [place] [address] 07/02/2024 4:40 PM EDT Office Visit Cardiology at [address] [address] Luis Alfredo Velazquez MD [facility] [place] [address] documented as of this encounter Procedures Procedure [...] who have questions please contact the health childcare center director that requested your imaging first. ? Electronically signed by: Ricardo Campbell MD, [facility] ([phone]), at 12/13/2021 9:46 AM Narrative 12/13/2021 9:46 [...] patients who have questions please contactthe health childcare center director that requested your imaging first. Gabe Fong MD IMG DX ORDERABLES documented in this encounter Visit Diagnoses Diagnosis Ankylosing spondylitis of cervical region Ankylosing spondylitis Neck pain Cervicalgia Ulcerative colitis without complications, unspecified location documented in this encounter Care Teams Flight Radio Officer Relationship Specialty Start Date End Date Marcio Devlin DO [address] [place] [address] PCP - General Family Medicine 11/11/17 documented as of this encounter
--- OUTSIDE RECORDS SUMMARY | 2024-04-16 00:25 | XMS_ITS | Encounter Summary ---
Author Organization [facility] [place] [address] Care Team Providers Care It Security Specialist Name Role Phone Marcio Devlin DO Primary Care Provider [phone] Encounter Details Date Type Department Care Team (Latest Contact Info) Description 09/17/2021 2:30 PM EST TH Visit (TeleHealth) [place] [phone] Dajuan Rachel MD [facility] [place] [address] Ulcerative pancolitis with complication Social History Tobacco [...] Stelara every 8 weeks - Calprotectin at [facility] - Continue Labs surveillance at [facility] - will defer to Dr Fong but would recommend CBC, LFTs, every 2 weeks for 2 months. - Plan for Colonoscopy within next 3-5 months - Follow-up at colonoscopy and in the office or via telehealth with Deillah Morrow APRN in 6 months documented in this encounter Progress Notes * Dajuan Rachel MD - 09/17/2021 2:30 PM EST [facility] Gastroenterology Telehealth Visit Primary care provider: [...] ?? Colonoscopy 09/19/08 (Dr. Shady Luz at [facility]) for surveillance for dysplasia. Areas [...] ?? Escalated to weekly Humira 11/2019. ADA (mchenry) from 6 q 2wk to 12.7 qwk, as well as BID SSZ ?? Colonoscopy Oct 2019: normal rectum, mod-severe inflammation and narrowing from 6-25 cm from theanus, normal remainder of colon. Path: mild active chronic colitis in ac/tc/dc/sc, severe active colitis with ulceration in proximal rectum ?? Colonoscopy December 2020 - severe involvement of L colon, iomv-al-bumppkhe involvement of transverse and R colon. Worse compared to last exam. SSA at hepatic flexure ?? Adalimumab level (mchenry) was 12.7 ?? Switched to Stelara ( 03/21/21, first infusion dose) d/t Lost of response to Humira. Stopped Uceris and sulfasalazine in January 2021. ? CURRENT MEDS: Stelara ( 03/21/21, first infusion dose) ?? Interval history: - Last visit with Delilah Morrow FRUIT CULLER 05/15/2021. - Feels much better since starting [...] No Physical Examination Performed Recent labs Reviewed [facility] labs from 08/15/2021 CBC nl. Aphos mildly elevated at 118. CRP 5.19 mg/dl. Assessment/Plan: Ms. Funes is a 61 y.o. patient with ulcerative colitis, switched to Stelara ( 03/21/21, first infusion dose) as she has lost response to Humira. Doing very well symptomatically. CRP elevated but might be related to . Suggested having calprotectin at [facility]. If elevated, would consider decreasingStelara dosing interval to 6 weeks prior to colonoscopy. Restaging colo to be done within the next 3-5 months. Plans: - Continue Stelara every 8 weeks - Calprotectin at [facility] - Continue Labs surveillance at [facility] - will defer to Dr Fong but would recommend CBC, LFTs, every 2 weeks for 2 months. - Plan for Colonoscopy within next 3-5 months - Follow-up at colonoscopy and in the office or via telehealth with Delilah Morrow APRN in 6 months I spent 30 min today reviewing the chart preparing for this visit, counseling the patient [id number] on the issues outlined above, and documenting an implementing the plan. Ms. Funes was in [place]. Freddy Rachel MD Curtain Stretcherproperty worker Co-Director, [facility] Section of Gastroenterology [place] [address] documented in this encounter Plan of Treatment Upcoming Encounters Date Type Department Care Team (Late st Contact Info) Description 04/19/2024 10:00 AM EDT Hospital Encounter Non-[place] [address] Arrived 04/29/2024 9:50 [place] [phone] Luis Alfredo Velazquez MD [facility] [place] [address] 04/29/2024 9:50 [place] [address] Luis Alfredo Velazquez MD [facility] [place] [address] 06/07/2024 2:30 PM EDT TH Visit (TeleHealth) [place] [address] Dajuan Rachel MD [facility] [place] [address] 07/02/2024 2:00 PM EDT Appointment Non-Invasive Cardiology Lab [address]1000 Luis Alfredo Velazquez MD [facility] [place] [address] 07/02/2024 4:00 PM EDT Office Visit Cardiology at [address]1000 [place] [facility] [place] [address] 07/02/2024 4:40 PM EDT Office Visit Cardiology at [place] [phone] Luis Alfredo Velazquez MD [facility] [place] [address] Scheduled Orders Name Type Priority Associated Diagnoses Orde r Schedule ENDOSCOPY CASE REQUEST: COLONOSCOPY, DIAGNOSTIC Procedures Routine Ulcerative pancolitis with complication Ordered: 09/17/2021 documented as of this encounter Visit Diagnoses Diagnosis Ulcerative pancolitis with complication documented in this encounter Care Teams It Security Specialist Relationship Specialty Start Date End Date Marcio Devlin DO [address] [place] [address] PCP - General Family Medicine 11/11/17 documented as of this encounter
--- OUTSIDE RECORDS SUMMARY | 2024-04-16 00:25 | XMS_ITS | Encounter Summary ---
Author Organization [facility], 1927–[address] [place] [address] Care Team Providers Care Clothespin Drier Operator Name Role Phone Marcio Devlin DO Primary Care Provider [phone] Encounter Details Date Type Department Care Team (Late st Contact Info) Description 01/18/2022 [place]phone [place] [phone] Janki Abdi Social History Tobacco Use Types [...] AM EDT Hospital Encounter Non-[place] [address] Arrived 04/29/2024 9:50 AM EDT Appointment MRI at [place] [address] Luis Alfredo Velazquez MD [facility] [place] [address] 04/29/2024 9:50 AM EDT Appointment MRI at [place] [address] Luis Alfredo Velazquez MD [facility] [place] [address] 06/07/2024 2:30 PM EDT TH Visit (TeleHealth) Gastroenterology at [address] Dajuan Rachel MD [facility] [place] [address] 07/02/2024 2:00 PM EDT Appointment Non-Invasive Cardiology Lab [address]1000 Luis Alfredo Velazquez MD [facility] [place] [address] 07/02/2024 4:00 PM EDT Office [place] [address] [place] PA [facility] [place] [address] 07/02/2024 4:40 PM EDT Office Visit Cardiology at [address] [address] Luis Alfredo Velazquez MD [facility] [place] [address] documented as of this encounter Visit Diagnoses Not on filedocumented in this encounter Care Teams Clothespin Drier Operator Relationship Specialty Start Date End Date Marcio Devlin DO [facility] [place] [place] [address] PCP - General Family Medicine 11/11/17 documented as of this encounter
--- OUTSIDE RECORDS SUMMARY | 2024-04-16 00:25 | XMS_ITS | Encounter Summary ---
Author Organization [facility] [place] [address] Care Team Providers Care Duralumin Metalworker Name Role Phone Marcio Devlin DO Primary Care Provider [phone] Reason for Visit * Reason Comments Specialty Pharmacy Review Ustekinumab (S telara) 90mg/mL Syringe Encounter Details Date Type Department Care Team (Late st Contact Info) Description 01/18/2022 Specialty [place] [address] Alison Ortiz, [facility] Social History Tobacco Use Types [...] Ortiz - 01/18/2022 11:59 PM EDT [facility] has completed a benefits investigation for Kim Dajuan Funes to review their eligibility to fill at [facility]. Per patient's medication list [...] AM EDT Hospital Encounter Non[place] [address] Arrived 04/29/2024 9:50 AM EDT Appointment MRI at [place] [phone] Luis Alfredo Velazquez MD [facility] [place] [address] 04/29/2024 9:50 AM [place] [address] Luis Alfredo Velazquez MD [facility] CARDIOLOGY [place], [place] [phone] 06/07/2024 2:30 PM EDT TH Visit (TeleHealth) Gastroenterology at [place] [phone] Dajuan Rachel MD [facility] [place] [address] 07/02/2024 2:00 PM EDT Appointment Non[place] [address] Luis Alfredo Velazquez MD [facility] [place] [address] 07/02/2024 4:00 PM EDT Office Visit Cardiology at [address] [address] [place] PA [facility] [place] [address] 07/02/2024 4:40 PM EDT Office Visit Cardiology at [address] [address] Luis Alfredo Velazquez MD [facility] [place] [address] documented as of this encounter Visit Diagnoses Not on filedocumented in this encounter Care Teams Duralumin Metalworker Relationship Specialty Start Date End Date Marcio Devlin DO [address] [place] [address] PCP - General Family Medicine 11/11/17 documented as of this encounter
--- OUTSIDE RECORDS SUMMARY | 2024-04-16 00:25 | XMS_ITS | Encounter Summary ---
Author Organization [facility] Address [facility] [place] [address] Care Team Providers Care Faculty Neuropsychologist Name Role Phone Marcio Devlin DO Primary Care Provider [phone] Encounter Details Date Type Department Care Team (Late st Contact Info) Description 07/19/2021 Orders [place] [address] Gabe Fong MD [facility] [address] [place] [address] Ulcerative colitis without complications, unspecified location; High [...] AM EDT Hospital Encounter Non-Invasive [place] [address] Arrived 04/29/2024 9:50 AM EDT Appointment MRI at [place] [address] Luis Alfredo Velazquez MD [facility] [place] [address] 04/29/2024 9:50 AM EDT Appointment MRI at [place] [address] Luis Alfredo Velazquez MD [facility] [place] [address] 06/07/2024 2:30 PM EDT TH Visit (TeleHealth) Gastroenterology at [place] [address] Dajuan Rachel MD [facility] [place] [address] 07/02/2024 2:00 PM EDT Appointment Non-Invasive Cardiology Lab [place] [address] Luis Alfredo Velazquez MD [facility] [place] [address] 07/02/2024 4:00 PM EDT Office Visit Cardiology at [place] [address] [place] [facility] [place] [address] 07/02/2024 4:40 PM EDT Office Visit Cardiology at [place] [phone] Luis Alfredo Velazquez MD [facility] [place] [address] documented as of this encounter Results * TPMT Activity Profile, RBC (12/13/2021 10:05 AM EDT) [facility] TPMT Activity Profile, RBC Test ? Result ?Flag ??Unit ? RefValue TPMT Activity Profile, RBC ??Interpretation ? SEE COMMENTS ?*Normal* In this whole blood sample, the profile of ?activity of thiopurine methyltransferase using three ?different substrates was normal or essentially normal. ? -ADDITIONAL INFORMATION--------- ?Liquid Chromatography-Tande m Mass Spectrometry (LC-MS/MS) ?This test was developed and its performance characteristics ?determined by [facility] in a manner consistent with CLIA ?requirements. This test has not been cleared or approved by ?the U.S. Food and Drug Administration. ??6-Methylmercaptopu rine ? 3.63 ?nmol/mL/h ??3.00-6.66 ??6-Methylmercaptopu rine riboside ?7.44 ?nmol/mL/h ??5.04-9.57 ??6-Methylthioguanin e riboside ? 4.87 ?nmol/mL/h ??2.70-5.84 ??Reviewed By ?Nathaniel Serrato, Ph.D ?Test Performed by: ?[facility] ?[address] [place] [id number] ?Hand Finisher: Oc Lorenzo M.D. Ph.D.; CLIA# [id number] [facility] Blood 12/13/2021 10:0 5 AM EDT 12/13/2021 3:01 PM EDT Narrative Resulting Agency Comment Spec In Lab Gabe Fong MD CHEMISTRY ORDERABLES Performing Organization Address [facility] de Phone Number [facility] [place] [address] * Dywkhaj-[id number] Qualitative (08/06/2021 10:15 AM EST) G6PD Qual Negative screening for G6PD deficiency. [facility] Blood 08/06/2021 10:1 5 AM EST 08/06/2021 10:41 AM EST Narrative Resulting Agency Comment Spec In Lab Gabe Fong MD HEMATOLOGY ORDERABLE S Performing Organization Address [facility] de Phone Number [facility] [place] [address] documented in this encounter Visit Diagnoses Diagnosis Ulcerative colitis without complications, unspecified location High risk medication use Encounter for long-term (current) use of other medications Inflammatory arthropathy Arthropathy, unspecified, site unspecified Morning joint stiffness Stiffness of joint, not elsewhere classified, unspecified site documented in this encounter Care Teams Faculty Neuropsychologist Relationship Specialty Start Date End Date Marcio Delvin DO [address] [facility] [address] PCP - General Family Medicine 11/11/17 documented as of this encounter
--- OUTSIDE RECORDS SUMMARY | 2024-04-16 00:26 | XMS_ITS | Encounter Summary ---
Author Organization [facility] [place] [address] Care Team Providers Care Household Appliance Repairer Name Role Phone Marcio Devlin DO Primary Care Provider [phone] Reason for Visit * Reason Comments Specialty Pharmacy Review Encounter Details Date Type Department Care Team (Late st Contact Info) Description 06/29/2020 Specialty [place] [phone] Berenice Novak, POLE SHAVER HELPER Social History Tobacco Use Types Packs/Day Years [...] Novak - 06/29/2020 11:59 PM EDT [facility] has completed a benefits investigation for Kim Graff Shantel to review their eligibility to fill at [facility]. Per patient's medication list they are prescribed Humira and is not able to be filled at the [facility]. documented in this encounter Plan of Treatment Upcoming Encounters Date Type Department Care Team (Late st Contact Info) Description 04/19/2024 10:00 AM EDT Hospital Encounter Non-[place] [address] Arrived 04/29/2024 9:50 AM EDT Appointment MRI at [place] [address] Luis Alfredo Velazquez MD [facility] [place] [address] 04/29/2024 9:50 AM EDT Appointment MRI at [place] [address] Luis Alfredo Velazquez MD [facility] [place] [address] 06/07/2024 2:30 PM EDT TH Visit (TeleHealth) Gastroenterology at [place] [address] Dajuan Rachel MD [facility] [place] [address] 07/02/2024 2:00 PM EDT Appointment Non-Invasive Cardiology Lab [address] Luis Alfredo Velazquez MD [facility] [place] [address] 07/02/2024 4:00 PM EDT Office Visit Cardiology at [place] [phone] [place] [facility] [place] [address] 07/02/2024 4:40 PM EDT Office Visit Cardiology at [address] [address] Luis Alfredo Velazquez MD [facility] [place] [address] documented as of this encounter Visit Diagnoses Not on filedocumented in this encounter Care Teams Household Appliance Repairer Relationship Specialty Start Date End Date Marcio Devlin DO [address] [facility] [place] [address] PCP - General Family Medicine 11/11/17 documented as of this encounter
--- OUTSIDE RECORDS SUMMARY | 2024-04-16 00:26 | XMS_ITS | Encounter Summary ---
Author Organization [facility] [place] [address] Care Team Providers Care Meteorologist Liaison Name Role Phone Marcio Devlin DO Primary Care Provider [phone] Reason for Visit * Auth/Cert Specialty Diagnoses / Procedures Referred By Contac t Referred To Contact Diagnoses Ulcerative colitis survey UC Procedures PRO COLONOSCOPY, DIAGNOSTIC PRO COLONOSCOPY, BIOPSY PRO COLONOSCOPY, REMV LESN, SNARE COLONOSCOPY, DIAGNOSTIC Referral ID Status Reason Start Date Expiration Date Visits Re quested Visits Authorized [id number] 1 1 Encounter Details Date Type Department Care Team (Late st Contact Info) Description 12/19/2020 1:04 PM EDT - 12/19/2020 1:49 PM EDT Surgery [place] [address] Dajuan Rachel MD [facility] [place] [address] COLONOSCOPY FLEXIBLE, WITH BX (WRVU 3.56) Social [...] occurs, please contact your Doctor. Please call [phone] before 8pm Mon-Fri with problems, questions or concerns. If you call after 8pm or on weekends, call the Hospital at [phone] and ask to speak to the Federal Judicial Law Clerk compensation administrator and the ferry operator will contact that person for you. When should you call for help? Call 383 anytime you think you may need emergency [...] any problems. Where can you learn more? [facility] View your After Visit Summary and more online at [email or web address] If you would like to provide feedback about your hospital experience, please call the Office of Patient and Family Relations at . If you have received this After Visit Summary in error, please immediately return it in person to the department, or notify the [facility] Privacy Office by calling toll free at between the hours of 8AM and 5PM to arrange for our retrieval of the documents at no cost to you. Content Version: 12.2 ?? [phone] [employer]. Care instructions adapted under license by [facility]. If you have questions about a medical condition or this instruction, always ask your healthcare professional. [employer] disclaims any warranty or liability for your [...] by mouth daily. SUMAtriptan (IMITREX) 20 mg/actuation [place], Non-Aerosol 1 spray as needed. 11/03/2017 metFORMIN [...] Hospital Encounter Non-Invasive Cardiology Lab [place] [phone] Arrived 04/29/2024 9:50 AM EDT Appointment MRI at [address]1000 Luis Alfredo Velazquez MD [facility] [place] [address] 04/29/2024 9:50 AM EDT [place] [address] Luis Alfredo Velazquez MD [facility] [place] [address] 06/07/2024 2:30 PM EDT TH Visit (TeleHealth) Gastroenterology at [place] [phone] Dajuan Rachel MD [facility] [place] [address] 07/02/2024 2:00 PM EDT Appointment Non-Invasive Cardiology Lab [place] [phone] Luis Alfredo Velazquez MD [facility] [place] [address] 07/02/2024 4:00 PM EDT Office Visit Cardiology at [place] [phone] [place] [facility] [place] [address] 07/02/2024 4:40 PM EDT Office Visit Cardiology at [address] [address] Luis Alfredo Velazquez MD [facility] [place] [address] documented as of this encounter Procedures Procedure [...] Routine 12/19/2020 12:53 PM EDT Colonoscopy, Biopsy (43491) 12/19/2020 12:34 PM EDT survey UC COLONOSCOPY Routine 12/19/2020 12:03 PM EDT documented in this encounter Results * Specimen to Pathology (12/19/2020 1:20 PM EDT) AP Specimen 12/19/2020 1:20 PM EDT 12/19/2020 1:21 PM EDT Narrative [facility] - 12/19/2020 1:21 PM EDT Specimen requisition ordered. ??Separate Pathology report to follow L Jose Rachel MD PATHOLOGY/CYTOLOGY O RDERABLES [facility] [place] [place] [address] * Specimen to Pathology (12/19/2020 1:20 PM EDT) AP Specimen 12/19/2020 1:20 PM EDT 12/19/2020 1:21 PM EDT Narrative [facility] - 12/19/2020 1:21 PM EDT Specimen requisition ordered. ??Separate Pathology report to follow L Jose Rachel MD PATHOLOGY/CYTOLOGY O IRMA [facility] [place] [place] [address] * Specimen to Pathology (12/19/2020 1:20 PM EDT) AP Specimen 12/19/2020 1:20 PM EDT 12/19/2020 1:21 PM EDT Narrative [facility] - 12/19/2020 1:21 PM EDT Specimen requisition ordered. ??Separate Pathology report to follow L Jose Rachel MD PATHOLOGY/CYTOLOGY O IRMA Performing Organization Address City/[facility]/ZIP Co de Phone Number [facility] [place] [address] * Specimen to Pathology (12/19/2020 1:20 PM EDT) AP Specimen 12/19/2020 1:20 PM EDT 12/19/2020 1:21 PM EDT Narrative [facility] - 12/19/2020 1:21 PM EDT Specimen requisition ordered. ??Separate Pathology report to follow L Jose Rachel MD PATHOLOGY/[place] [address] * Specimen to Pathology (12/19/2020 1:20 PM EDT) AP Specimen 12/19/2020 1:20 PM EDT 12/19/2020 1:21 PM EDT Narrative [facility] - 12/19/2020 1:21 PM EDT Specimen requisition ordered. ??Separate Pathology report to follow L Jose Rachel MD PATHOLOGY/CYTOLOGY O IRMA Performing Organization Address [facility] de Phone Number [facility] [place] [address] * Specimen to Pathology (12/19/2020 1:20 PM EDT) AP Specimen 12/19/2020 1:20 PM EDT 12/19/2020 1:20 PM EDT Narrative [facility] - 12/19/2020 1:20 PM EDT Specimen requisition ordered. ??Separate Pathology report to follow L Jose Rachel MD PATHOLOGY/CYTOLOGY O IRMA Performing Organization Address [facility] [place] [address] * Specimen to Pathology (12/19/2020 1:20 PM EDT) AP Specimen 12/19/2020 1:20 PM EDT 12/19/2020 1:20 PM EDT Narrative [facility] - 12/19/2020 1:20 PM EDT Specimen requisition ordered. ??Separate Pathology report to follow L Jose Rachel MD PATHOLOGY/CYTOLOGY O IRMA Performing Organization Address [facility] [place] [address] * Surgical Pathology Report (12/19/2020 12:53 PM EDT) FINAL DIAGNOSIS (AP) [id number] ? Location: 4T; EA07; A The signing [...] MD Verified: ??12/26/2020 15:38 ??Pathologist Performed at: ??[place] [place], [place], [place] ADDITIONAL STUDIES Immunohistochemistry Studies: Formalin-fixed, paraffin-embedded [...] labeled G1-G2. ??elisa 12/26/2020 3:38 PM EDT [facility] GI Biopsy 12/19/2020 12:5 3 PM EDT 12/19/2020 12:53 PM EDT GI Biopsy 12/19/2020 12:5 3 PM EDT 12/19/2020 12:53 PM EDT GI Biopsy 12/19/2020 12:5 3 PM EDT 12/19/2020 12:53 PM EDT GI Biopsy 12/19/2020 12:5 3 PM EDT 12/19/2020 12:53 PM EDT GI Biopsy 12/19/2020 12:5 3 PM EDT 12/19/2020 12:53 PM EDT GI Biopsy 12/19/2020 12:5 3 PM EDT 12/19/2020 12:53 PM EDT GI Biopsy 12/19/2020 12:5 3 PM EDT 12/19/2020 12:53 PM EDT L Jose Rachel MD PATHOLOGY/CYTOLOGY Clotilde SOLIS [facility] [place] [address] * COLONOSCOPY (12/19/2020 12:03 PM EDT) COLONOSCOPY [facility] Procedure Date: 12/19/2020 12:03 PM ? Patient Name: Kim Funes ? [facility]: [id number] ? Date of : 1960 ? Age: 60 ? Order #: [id number] ? Instrument Name: [id number] ? Procedure: ? Colonoscopy Patient Profile: ? [...] preparation was evaluated using ? the BBPS (York Bowel Preparation ? Scale) with scores of: [...] involvement of the left colon ? and uyxo-kp-dborbafb involvement of ? the transverse and right [...] mcg/mL) multi-dose injection ONCE PRN, Starting on Fri12/19/20 at 1239, Until Fri12/19/20 at 1623, Intra-Operative (Intra-Procedure), Routine Given 12/19/2020 [...] mg/mL) multi-dose injection ONCE PRN, Starting on Fri12/19/20 at 1239, Until 12/19/20 at 1623, Intra-Operative [...] RN) documented in this encounter Care Teams Meteorologist Liaison Relationship Specialty Start Date End Date Marcio Devlin DO [address] [place] [address] PCP - General Family Medicine 11/11/17 documented as of this encounter
--- OUTSIDE RECORDS SUMMARY | 2024-04-16 00:26 | XMS_ITS | Encounter Summary ---
Author Organization [facility] Address [facility] [place] [address] Care Team Providers Care Sharepoint Solutions Developer Name Role Phone Marcio Devlin DO Primary Care Provider [phone] Encounter Details Date Type Department Care Team (Late st Contact Info) Description 02/13/2021 Orders [place] [phone] Dajuan Rachel MD [facility] [place] [address] Social History Tobacco Use Types Packs/Day Years [...] AM EDT Hospital Encounter Non-[place] [phone] Arrived 04/29/2024 9:50 AM EDT Appointment MRI at [address]1000 Luis Alfredo Velazquez MD [facility] [place] [address] 04/29/2024 9:50 AM EDT Appointment MRI at [address]1000 Luis Alfredo Velazquez MD [facility] [place] [address] 06/07/2024 2:30 PM EDT TH Visit (TeleHealth) [place] [address] Dajuan Rachel MD [facility] [place] [address] 07/02/2024 2:00 PM EDT Appointment Non-Invasive Cardiology Lab [address]1000 Luis Alfredo Velazquez MD [facility] [place] [address] 07/02/2024 4:00 PM EDT Office Visit Cardiology at [address] [place] [facility] [place] [address] 07/02/2024 4:40 PM EDT Office Visit Cardiology at [place] [phone] Luis Alfredo Velazquez MD [facility] [address] [place] [address] documented as of this encounter Visit Diagnoses Not on filedocumented in this encounter Care Teams Sharepoint Solutions Developer Relationship Specialty Start Date End Date Marcio Devlin DO [address] [place] [address] PCP - General Family Medicine 11/11/17 documented as of this encounter
--- OUTSIDE RECORDS SUMMARY | 2024-04-16 00:26 | XMS_ITS | Encounter Summary ---
Author Organization [facility] [place] [address] Care Team Providers Care Extender Name Role Phone Marcio Devlin DO Primary Care Provider [phone] Reason for Visit * Consultation (Routine) - Closed Specialty Diagnoses / Procedures Referred By Contac t Referred To Contact Endocrinology Diagnoses Ulcerative colitis without complications, unspecified location Osteopenia, unspecified location Ulcerative colitis without complications, unspecified location Osteopenia, unspecified location Gabe Fong MD [facility] [place] [address] [facility] [address] [place] [phone] Referral ID Status Reason Start Date Expiration Date V isits Requested Visits Authorized [id number] Closed Consult, Test & Treat 04/06/2020 04/06/2021 1 1 Encounter Details Date Type Department Care Team (Latest Contact Info) Description 04/28/2020 2:00 PM EDT TH Visit (TeleHealth) [place] [address] Lucrecia Park MD [facility] [place] [address] Osteopenia, unspecified location (Primary Dx); [...] Lab: check lab today or soon locally ([facility] lab) for baseline PTH, TSH, corisol, 25-vitamin [...] PCP: Marcio Devlin DO Performed by: Dr. Lurcecia Park MD, PhD, FACE, FACP Kim Funes was seen in consultation in the Endocrine clinic at the request of Dr. Marcio Devlin DO and Dr. Gabe Fong (cable assembler) For the evaluation of osteopenia, worsening since [...] pleasant 60 y.o. female recently evaluated by cable assembler for ankylosing spondylitis on Humira weekly for [...] mouth daily. ??? SUMAtriptan (IMITREX) 20 mg/actuation [place], Non-Aerosol 1 spray as needed. ??? ferrous [...] file Gets together: Not on file Attends congregational service: Not on file Active member of [...] Lab: check lab today or soon locally ([facility] lab) for baseline PTH, TSH, corisol, 25-vitamin [...] AM EDT Hospital Encounter Non-[place] [address] Arrived 04/29/2024 9:50 AM EDT [place] [address] Luis Alfredo Velazquez MD [facility] [place] [address] 04/29/2024 9:50 AM EDT [place] [phone] Luis Alfredo Velazquez MD [facility] [place] [address] 06/07/2024 2:30 PM EDT TH Visit (TeleHealth) Gastroenterology at [place] [address] Dajuan Rachel MD [facility] [place] [address] 07/02/2024 2:00 PM EDT Appointment Non-Invasive [place] [address] Luis Alfredo Velazquez MD [facility] [place] [address] 07/02/2024 4:00 PM EDT Office Visit Cardiology at [place] [phone] [place] [facility] [place] [address] 07/02/2024 4:40 PM EDT Office Visit Cardiology at [place] [address] Luis Alfredo Velazquez MD [facility] [place] [address] documented as of this encounter Visit Diagnoses Diagnosis Osteopenia, unspecified location- Primary Controlled type 2 diabetes mellitus without complication, without long-term current use of insulin Mixed hyperlipidemia Ankylosing spondylitis of multiple sites in spine Ankylosing spondylitis documented in this encounter Care Teams Extender Relationship Specialty Start Date End Date Marcio Devlin DO [address] [place] [address] PCP - General Family Medicine 11/11/17 documented as of this encounter
--- OUTSIDE RECORDS SUMMARY | 2024-04-16 00:26 | XMS_ITS | Encounter Summary ---
Author Organization [facility] [place] [address] Care Team Providers Care Egg Processing Supervisor Name Role Phone Marcio Devlin DO Primary Care Provider [phone] Reason for Visit * Reason Onset Date Comments Medication Refill 04/24/2020 Encounter Details Date Type Department Care Team (Late st Contact Info) Description 04/24/2020 Refill [place] [address] Dajuan Rachel MD [facility] [place] [address] Ulcerative pancolitis without complication Social History Tobacco [...] AM EDT Hospital Encounter Non-[place] [address] Arrived 04/29/2024 9:50 AM EDT Appointment MRI at [place] [address] Luis Alfredo Velazquez MD [facility] [place] [address] 04/29/2024 9:50 AM EDT Appointment MRI at [place] [address] Luis Alfredo Velazquez MD [facility] [place] [address] 06/07/2024 2:30 PM EDT TH Visit (TeleHealth) Gastroenterology at [place] [address] Dajuan Rachel MD [facility] [place] [address] 07/02/2024 2:00 PM EDT Appointment Non-Invasive Cardiology Lab [place] [address] Luis Alfredo Velazquez MD [facility] [place] [address] 07/02/2024 4:00 PM EDT Office Visit Cardiology at [place] [address] [address] [place] [facility] [place] [address] 07/02/2024 4:40 PM EDT Office Visit Cardiology at [place] [phone] Luis Alfredo Velazquez MD [facility] [place] [address] documented as of this encounter Visit Diagnoses Diagnosis Ulcerative pancolitis without complication documented in this encounter Care Teams Egg Processing Supervisor Relationship Specialty Start Date End Date Marcio Devlin DO [address] [place] [address] PCP - General Family Medicine 11/11/17 documented as of this encounter
--- OUTSIDE RECORDS SUMMARY | 2024-04-16 00:26 | XMS_ITS | Encounter Summary ---
Author Organization [facility] [place] [address] Care Team Providers Care Elevator Installer Apprentice Name Role Phone Marcio Devlin DO Primary Care Provider [phone] Reason for Visit * Reason Comments Medication Refill Encounter Details Date Type Department Care Team (Late st Contact Info) Description 10/17/2020 Refill [place] [address] Dajuan Rachel MD [facility] [place] [address] Ulcerative pancolitis without complication Social History Tobacco [...] AM EDT Hospital Encounter Non[place] [address] Arrived 04/29/2024 9:50 AM EDT Appointment MRI at [place] [address] Luis Alfredo Velazquez MD [facility] [place] [address] 04/29/2024 9:50 AM EDT Appointment MRI at [place] [address] Luis Alfredo Velazquez MD [facility] [place] [address] 06/07/2024 2:30 PM EDT TH Visit (TeleHealth) Gastroenterology at [place] [address] Dajuan Rachel MD [facility] [place] [address] 07/02/2024 2:00 PM EDT Appointment Non-Invasive Cardiology Lab [place] [address] Luis Alfredo Velazquez MD [facility] [place] [address] 07/02/2024 4:00 PM EDT Office Visit Cardiology at [place] [address] [address] [place] [facility] [place] [address] 07/02/2024 4:40 PM EDT Office Visit Cardiology at [address]1000 Luis Alfredo Velazquez MD [facility] [place] [place] [address] documented as of this encounter Visit Diagnoses Diagnosis Ulcerative pancolitis without complication documented in this encounter Care Teams Elevator Installer Apprentice Relationship Specialty Start Date End Date Marcio Devlin DO [address] [place] [address] PCP - General Family Medicine 11/11/17 documented as of this encounter
--- OUTSIDE RECORDS SUMMARY | 2024-04-16 00:26 | XMS_ITS | Encounter Summary ---
[place] [address] Care Team Providers Care Fur Machine Operator Name Role Phone Marcio Devlin DO Primary Care Provider [phone] Encounter Details Date Type Department Care Team (Late st Contact Info) Description 05/15/2021 Orders [place] [address] Rachelle Acevedo RN Ulcerative pancolitis [...] AM EDT Hospital Encounter Non-[place] [address] Arrived 04/29/2024 9:50 AM EDT [place] [address] Luis Alfredo Velazquez MD [facility] [place] [address] 04/29/2024 9:50 AM EDT Appointment MRI at [address]1000 Luis Alfredo Velazquez MD [facility] [place] [address] 06/07/2024 2:30 PM EDT TH Visit (TeleHealth) Gastroenterology at [place] [address] Dajuan Rachel MD [facility] [place] [address] 07/02/2024 2:00 PM EDT Appointment Non-Invasive Cardiology Lab [address]1000 Luis Alfredo Velazquez MD [facility] [place] [address] 07/02/2024 4:00 PM EDT Office Visit Cardiology at [place] [phone] [place] [facility] [place] [address] 07/02/2024 4:40 PM EDT Office Visit Cardiology at [place] [address] Luis Alfredo Velazquez MD [facility] [place] [address] documented as of this encounter Visit Diagnoses Diagnosis Ulcerative pancolitis without complication Encounter for therapeutic drug level monitoring Encounter for therapeutic drug monitoring documented in this encounter Care Teams Fur Machine Operator Relationship Specialty Start Date End Date Marcio Devlin DO [address] [place] [address] PCP - General Family Medicine 11/11/17 documented as of this encounter
--- OUTSIDE RECORDS SUMMARY | 2024-04-16 00:26 | XMS_ITS | Encounter Summary ---
Author Organization Formerly [facility] [place] [address] Care Team Providers Care School Nurse Name Role Phone Marcio Devlin DO Primary Care Provider [phone] Encounter Details Date Type Department Care Team (Late st Contact Info) Description 12/07/2020 [place]phone [place] [phone] Carmelina Michel, [facility] Social History Tobacco Use Types [...] Carmelina Michel - 12/07/2020 4:19 PM EDT Kim Funes [id number] Diagnosis/Indication: COLO ? 1. Have you ever [...] to patient: You must have a responsible republican who [...] AM EDT Hospital Encounter Non-[place] [address] Arrived 04/29/2024 9:50 [place] [phone] Luis Alfredo Velazquez MD [facility] [address] 04/29/2024 9:50 [place] [phone] Luis Alfredo Velazquez MD [facility] [place] [address] 06/07/2024 2:30 PM EDT TH Visit (TeleHealth) Gastroenterology at [place] [phone] Dajuan Rachel MD [facility] [place] [address] 07/02/2024 2:00 PM EDT Appointment Non-[place] [address] Luis Alfredo Velazquez MD [facility] [place] [address] 07/02/2024 4:00 PM EDT Office Visit Cardiology at [place] [phone] Mars Green PA [facility] [place] [address] 07/02/2024 4:40 PM EDT [place] [address] Luis Alfredo Velazquez MD [facility] [place] [address] documented as of this encounter Visit Diagnoses Not on filedocumented in this encounter Care Teams School Nurse Relationship Specialty Start Date End Date Marcio Devlin DO [address] [place] [address] PCP - General Family Medicine 11/11/17 documented as of this encounter
--- OUTSIDE RECORDS SUMMARY | 2024-04-16 00:26 | XMS_ITS | Encounter Summary ---
[place] [address] Care Team Providers Care Qa Specialist Name Role Phone Marcio Devlin DO Primary Care Provider [phone] Reason for Visit * Reason Comments Prior Authorization Humira 40 mg/0.4 ml PNKT Encounter Details Date Type Department Care Team (Late st Contact Info) Description 04/06/2020 Specialty [place] [phone] Dennis Solorzano, BRYCE Social History Tobacco Use [...] Graff Shantel Patient : 1960 Patient Address: [address] [place] [phone] (home) Medication Name: HUMIRA(CF) PEN 40 MG/0.4 ML SUBCUTANEOUS KIT Medication ID: [id number] Patient Location: Patient Location Comment: Subscriber Insurance: Subscriber Insurance Comment: [place] [employer] Fax: Physician: Renee KEENE Physician Comment: Sent Via: Telephone Truong: Ref/Case/PA#: [id number] Medication Strength Frequency Requested: Humira Pen 40 mg/0.4 ml PNKT Inject 40 mg (1 Pen) Subcutaneously Every 7 Days Qty/Day Supply: New Start: Renewal Diagnosis & ICD-10 Code: Ulcerative Pancolitis K51.00 Ankylosing Spondylitis M45.9 Patient Notified: Yes Submission Notes: Reauthorization * Dennis Solorzano CPHT - 04/06/2020 11:54 AM EDT [facility], Prior Authorization Approval Medication Name: HUMIRA(CF) PEN 40 MG/0.4 ML SUBCUTANEOUS KIT Medication ID: [id number] Fillable at [facility]: No Approval Dates: 04/10/2020 to 04/09/2021 Insurance requirements/notes: Ins Requires Patient Fill With [facility]. Other Notes: None Case/Reference #: [id number] Approval notification Received via: Telephone Copay: N/A Copay assistance: None Copay Notes: N/A Insurance mandated Pharmacy: [facility] staff will be reaching out to the patient to inform them of their medication[facility]. If applicable, a pharmacist will speak with the patient to offer our specialty pharmacy services and to arrange delivery of their medication. documented in this encounter Plan of Treatment Upcoming Encounters Date Type Department Care Team (Late st Contact Info) Description 04/19/2024 10:00 AM EDT Hospital Encounter Non[place] [address] Arrived 04/29/2024 9:50 AM EDT Appointment MRI at [address] Luis Alfredo Velazquez MD [facility] [place] [address] 04/29/2024 9:50 AM EDT Appointment MRI at [address] Luis Alfredo Velazquez MD [facility] [place] [address] 06/07/2024 2:30 PM EDT TH Visit (TeleHealth) Gastroenterology at [address]1000 Dajuan Rachel MD [facility] [place] [address] 07/02/2024 2:00 PM EDT Appointment Non-Invasive Cardiology Lab [place] [phone] Luis Alfredo Velazquez MD [facility] [place] [address] 07/02/2024 4:00 PM EDT Office Visit Cardiology at [place] [phone] Mars Green, YURIY [facility] [place] [address] 07/02/2024 4:40 PM EDT Office Visit Cardiology at [address] [address] Luis Alfredo Velazquez MD [facility] [place] [address] documented as of this encounter Visit Diagnoses Not on filedocumented in this encounter Care Teams Qa Specialist Relationship Specialty Start Date End Date Marcio Devlin DO [address] [place] [address] PCP - General Family Medicine 11/11/17 documented as of this encounter
--- OUTSIDE RECORDS SUMMARY | 2024-04-16 00:26 | XMS_ITS | Encounter Summary ---
Author Organization [facility] [address] Care Team Providers Care Risk Management Internship Name Role Phone Marcio Devlin DO Primary Care Provider [phone] Encounter Details Date Type Department Care Team (Late st Contact Info) Description 06/29/2020 4:00 PM EDT Office Visit [place] [phone] Clau Cruz MD [facility] [place] [address] MÉNDEZ (nonalcoholic steatohepatitis) Social History Tobacco Use [...] in 02/2006). Dr. Chan started on ursodiol [id number]. No prior liver imaging. No evidence of [...] mouth daily. ??? SUMAtriptan (IMITREX) 20 mg/actuation [place], Non-Aerosol 1 spray as needed. ??? ferrous [...] Cruz MD Section of Gastroenterology & Hepatology [address] [place] [phone] 17 minutes of this 30 minute visit was spent in discussion. Cc: Marcio Devlin DO documented in this encounter Procedure Notes * Clua Cruz MD - 06/29/2020 4:00 PM EDTAssociated Order(s): FIBROSCAN Procedure(s): FIBROSCAN Pre-Procedure Diagnose(s): MÉNDEZ (nonalcoholic steatohepatitis) [facility] Liver Fibrosis Assessment Report Indication: MÉNDEZ Performed by: Clau Cruz MD Procedure: Vibration Controlled Transient Elastography (VCTE) or Fibroscan [place] Protocol: Patient's identity, procedure and site were [...] AM EDT Hospital Encounter Non-[place]vasive [place] [address] Arrived 04/29/2024 9:50 AM EDT [place] [phone] Luis Alfredo Velazquez MD [facility] [place] [address] 04/29/2024 9:50 AM EDT Appointment MRI at [address]1000 Luis Alfredo Velazquez MD [facility] [place] [address] 06/07/2024 2:30 PM EDT TH Visit (TeleHealth) Gastroenterology at [place] [address] Dajuan Rachel MD [facility] [place] [address] 07/02/2024 2:00 PM EDT Appointment Non-Invasive Cardiology Lab [address]1000 Luis Alfredo Velazquez MD [facility] [place] [address] 07/02/2024 4:00 PM EDT Office Visit Cardiology at [place] [phone] Mars Green PA [facility] [place] [place] [address] 07/02/2024 4:40 PM EDT Office Visit Cardiology at [address]1000 Luis Alfredo Velazquez MD [facility] [place] [address] documented as of this encounter Procedures Procedure Name Priority Date/Time Associated Diagnosis Comments [id number] Routine 06/29/2020 4:00 PM EDT MÉNDEZ (nonalcoholic steatohepatitis) documented in this encounter Results * [id number] (06/29/2020 4:00 PM EDT) Narrative Clau Cruz MD - 06/29/2020 4:00 PM EDT Clau Cruz MD ? 06/29/2020 ??5:12 PM [facility] Liver Fibrosis Assessment Report Indication: ?? MÉNDEZ Performed by: ??Clau Cruz MD Procedure: Vibration Controlled Transient Elastography (VCTE) or Fibroscan [place] Protocol: Patient's identity, procedure and site were [...] disease documented in this encounter Care Teams Risk Management Internship Relationship Specialty Start Date End Date Marcio Devlin DO [address] [place] [address] PCP - General Family Medicine 11/11/17 documented as of this encounter
--- OUTSIDE RECORDS SUMMARY | 2024-04-16 00:26 | XMS_ITS | Encounter Summary ---
Author Organization [facility] [place] [address] Care Team Providers Care Research Worker Kitchen Name Role Phone Marcio Devlin DO Primary Care Provider [phone] Reason for Referral * Consultation (Routine) - Closed Specialty Diagnoses / Procedures Referred By Contac t Referred To Contact Gastroenterology Diagnoses Ulcerative pancolitis without complication colo- Ulcerative colitis restaging and surveillance. November 2020. Can be with any IBD provider. Dajuan Rachel MD [facility] [place] [address] [facility] Endoscopy [address] [place] [address] Referral ID Status Reason Start Date Expiration Date V isits Requested Visits Authorized [id number] Closed Consult, Test & Treat 08/28/2020 08/28/2021 1 1 Encounter Details Date Type Department Care Team (Latest Contact Info) Description 08/28/2020 2:30 PM EST TH Visit (TeleHealth) [place] [address] Dajuan Rachel MD [facility] [place] [address] Ulcerative pancolitis without complication Social [...] last colonoscopy 09/19/08 (Dr. Shady Luz at [facility]) for surveillance for dysplasia. Areas of [...] mouth daily. ??? SUMAtriptan (IMITREX) 20 mg/actuation [place], Non-Aerosol 1 spray as needed. ??? ferrous [...] by interface; created by interface; Colonoscopy, Biopsy (55563) (01/02/2011); Colonoscopy, Remv Lesn, Snare (25250) (01/02/2011); Colonoscopy, Biopsy (14226) (N/A, 03/04/2017); Colonoscopy, Remv Lesn, Snare (13865) (N/A, 03/04/2017); salpingectomy; orthopedic surgery; Vag Hyst, Rmv Tube/Ovary (08351) (N/A, 03/10/2018); Combined Ant/Post Colporrhaphy (62605) (N/A, 03/10/2018); Sling Oper Stres Incontinence (55599) (N/A, 03/10/2018); Revaginal Prolapse, Uterosacral (70423) (N/A, 03/10/2018); XR Fluoro Guided Joint Injection Large Right (Right, 03/09/2019); Colonoscopy, Diagnostic (55133) (N/A, 11/09/2019); and Colonoscopy, Biopsy (38828) (N/A, 11/09/2019). Family History: family history includes [...] Labs were reviewed from March. Adalimumab level (penelope) was 12.7. CBC, ESR, CMP were unremarkable. [...] calprotectin that was done in March from [facility] - Continue Humira weekly - Plan on repeat colonoscopy in November 2020 - Recommended annual flu as well as COVID-19 vaccination - Follow in IBD clinic in December following colonoscopy. The patient was in [place] during this video telehealth visit. 15 of the 20 minutes were spent [id number] counseling the patient in the issues above. Freddy Rachel MD [employer] Design Managerroof tile layer Co-Director, [facility] Section of Gastroenterology [place] [address] documented in this encounter Plan of Treatment Upcoming Encounters Date Type Department Care Team (Late st Contact Info) Description 04/19/2024 10:00 AM EDT Hospital Encounter Non-Invasive [place] [address] Arrived 04/29/2024 9:50 AM EDT Appointment MRI at [place] [phone] Luis Alfredo Velazquez MD [facility] [place] [address] 04/29/2024 9:50 [place] [address] Luis Alfredo Velazquez MD [facility] [place] [address] 06/07/2024 2:30 PM EDT TH Visit (TeleHealth) [place] [address] Dajuan Rachel MD [facility] [address] 07/02/2024 2:00 PM EDT Appointment Non-Invasive [place] [address] Luis Alfredo Velazquez MD [facility] [place] [address] 07/02/2024 4:00 PM EDT Office Visit Cardiology at [address] [address] [place] [facility] [place] [address] 07/02/2024 4:40 PM EDT Office Visit Cardiology at [address] [address] Luis Alfredo Velazquez MD [facility] [place] [address] Scheduled Referrals Name Type Priority Associated Diagnoses Order Schedule Referral to Gastroenterology Outpatient Referral Routine Ulcerative pancolitis without complication Ordered: 08/28/2020 documented as of this encounter Visit Diagnoses Diagnosis Ulcerative pancolitis without complication documented in this encounter Care Teams Research Worker Kitchen Relationship Specialty Start Date End Date Marcio Devlin DO [address] [place] [address] PCP - General Family Medicine 11/11/17 documented as of this encounter
--- OUTSIDE RECORDS SUMMARY | 2024-04-16 00:26 | XMS_ITS | Encounter Summary ---
Author Organization [facility] [place] [address] Care Team Providers Care Supervisor Benzene Refining Name Role Phone Marcio Devlin DO Primary Care Provider Encounter Details Date Type Department Care Team (Late st Contact Info) Description 04/27/2020 Telephone [place] [phone] Radha Enamorado, [facility] Social History Tobacco Use Types Packs/Day [...] Notes * Telephone Encounter - Radha Enamorado, [facility] - 04/27/2020 1:59 PM EDT GAP Coloring Checker Pre-Telemedicine Phone Note [] Patient not reached [x] Patient reached and the following information was reviewed/obtained per protocol: [x] Confirmed patient name and date of [x] Confirmed telemedicine maria c (Vidyo and Virtual Visit) is downloaded and functioning [x] Confirmed location of patient - TeleVisit is taking place in [x] [place] [] [place] [] If not on [facility], working on signing up for [facility] [x] Confirmed has completed any pre-visit questionnaires [] If has not received required pre-visit questionnaires, send via [facility] [x] Reviewed patient medications ??? adalimumab 40 mg/0.4 mL Pen Injector Kit ??? fexofenadine (DARRYN) 180 mg Tablet ??? PROAIR HFA 90 mcg/actuation HFA Aerosol Inhaler ??? metoprolol succinate (TOPROL-XL) 100 mg Tablet Sustained Release 24 hr ??? topiramate 50 mg capsule,sprinkle,ER 24hr ??? aspirin 81 mg Tablet, Delayed Release (E.C.) ??? SUMAtriptan (IMITREX) 20 mg/actuation [place], Non-Aerosol ??? ferrous sulfate (IRON) 325 mg [...] EDT Hospital Encounter Non-Invasive Cardiology [place] [phone] Arrived 04/29/2024 9:50 AM EDT Appointment MRI at [place] [address] Luis Alfredo Velazquez MD [facility] [place] [address] 04/29/2024 9:50 AM EDT Appointment MRI at [place] [address] Luis Alfredo Velazquez MD [facility] [place] [address] 06/07/2024 2:30 PM EDT TH Visit (TeleHealth) Gastroenterology at [place] [address] Dajuan Rachel MD [facility] [place] [address] 07/02/2024 2:00 PM EDT Appointment Non-Invasive Cardiology Lab [address]1000 Luis Alfredo Velazquez MD [facility] [place] [address] 07/02/2024 4:00 PM EDT Office Visit Cardiology at [place] [address] [place] [facility] [place] [address] 07/02/2024 4:40 PM EDT Office Visit Cardiology at [place] [address] Luis Alfredo Velazquez MD [facility] [place] [address] documented as of this encounter Visit Diagnoses Not on filedocumented in this encounter Care Teams Supervisor Benzene Refining Relationship Specialty Start Date End Date Marcio Devlin DO [address] [place] [address] PCP - General Family Medicine 11/11/17 documented as of this encounter
--- OUTSIDE RECORDS SUMMARY | 2024-04-16 00:26 | XMS_ITS | Encounter Summary ---
Author Organization [facility] [place] [address] Care Team Providers Care Urban Gardening Specialist Name Role Phone Marcio Devlin DO Primary Care Provider [phone] Reason for Visit * Treatment/Therapy Plan Authorization (Routine) - Closed Specialty Diagnoses / Procedures Referred By Contac t Referred To Contact Diagnoses Ulcerative pancolitis with other complication Procedures TC USTEKINUMAB (130MG/26ML), PER 1MG, INTRAVENOUS USE inf Dajuan Rachel MD [facility] [place] [address] [facility] Med Infusion [address] [place] [phone] Referral ID Status Reason Start Date Expiration Date Visits Re quested Visits Authorized [id number] Closed 02/08/2021 05/11/2021 5 5 Encounter Details Date Type Department Care Team (Latest Contact Info) Description 03/21/2021 1:24 PM EDT - 03/21/2021 11:59 PM EDT Hospital [place] [address] Ulcerative pancolitis with other complication [...] by mouth daily. SUMAtriptan (IMITREX) 20 mg/actuation [place], Non-Aerosol 1 spray as needed. 11/03/2017 metFORMIN [...] Ortega, Pen 40 mg/0.4 mL Pen Injector KitIndications:Ulcera [...] of this encounter Progress Notes * Rosemarie Ying RN - 03/21/2021 2:23 PM EDT INFUSION [...] ACCESS: Peripheral IV Line - Single Lumen 03/21/21 1335 median vein (underside of arm), right 22 gauge;1 inlength (Active) Indication/Daily Review of Necessity medication therapy intermittent 03/21/21 133 Site Preparation/Maintenance site cleansed: chlorhexidine solution;dressing: transparent semipermeable applied 03/21/211334 Patency/Maintenance flushed without difficulty;alcohol impregnated cap applied;blood return, able to obtain 03/21/21 133 Site Signs/Symptoms no redness;no swelling;no warmth;no pain [...] AM EDT Hospital Encounter Non-[place] [address] Arrived 04/29/2024 9:50 AM EDT Appointment MRI at [place] [phone] Luis Alfredo Velazquez MD [facility] [place] [address] 04/29/2024 9:50 [place] [phone] Luis Alfredo Velazquez MD [facility] [place] [address] 06/07/2024 2:30 PM EDT TH Visit (TeleHealth) [place] [phone] Dajuan Rachel MD [facility] [place] [address] 07/02/2024 2:00 PM EDT Appointment Non-[place] [phone] Luis Alfredo Velazquez MD [facility] [place] [address] 07/02/2024 4:00 PM EDT Office Visit Cardiology at [address] [phone] [place] PA [facility] [place] [address] 07/02/2024 4:40 PM EDT Office Visit Cardiology at [address] [phone] Luis Alfredo Velazquez MD [facility] [place] [address] documented as of this encounter Visit Diagnoses Diagnosis Ulcerative pancolitis with other complication documented in this encounter Administered Medications Inactive Administered Medications - up to 3 most recent administrations Medication Order MAR Action Action Date Dose Rate Site acetaminophen (Tylenol) 325 mg tablet 1 dose, Starting on Fri03/21/21 at 1334, Until Fri03/21/21 at 1330, Raya Yingine I.: cabinet override acetaminophen (Tylenol) tablet 650 mg 650 mg, Oral, ONCE, 1 dose, On Fri03/21/21 at 1345, Maximum dose of acetaminophen is 4,000 mg from all sources in 24 hours, Routine Given 03/21/2021 1:30 PM EDT 650 mg loratadine (Claritin) 10 mg tablet 1 dose, Starting on Fri03/21/21 at 1335, Until Fri03/21/21 at 1330, Raya Yingine I.: cabinet override loratadine (Claritin) tablet 10 [...] mL/hr documented in this encounter Care Teams Urban Gardening Specialist Relationship Specialty Start Date End Date Marcio Devlin DO [address] [place] [address] PCP - General Family Medicine 11/11/17 documented as of this encounter
--- OUTSIDE RECORDS SUMMARY | 2024-04-16 00:26 | XMS_ITS | Encounter Summary ---
Author Organization [facility] [place] [address] Care Team Providers Care Fence Machine Operator Name Role Phone Marcio Devlin DO Primary Care Provider [phone] Encounter Details Date Type Department Care Team (Latest Contact Info) Description 01/29/2021 4:30 PM EDT TH Visit (TeleHealth) [place] [phone] Dajuan Rachel MD [facility] [place] [address] Ulcerative pancolitis without complication Social History Tobacco [...] sulfasalazine 5. Please have labs checked at [facility]; once on new medications, will need routine labs every 2 weeks at [facility] until next follow-up visit 6. Await opinion [...] ??? Colonoscopy 09/19/08 (Dr. Shady Luz at [facility]) for surveillance for dysplasia. Areas of [...] ??? Escalated to weekly Humira 11/2019. ADA (garcía) [...] 2020 - severe involvement of L colon, [id number] involvement of transverse and R colon. Worse [...] mouth daily. ??? SUMAtriptan (IMITREX) 20 mg/actuation [place], Non-Aerosol 1 spray as needed. ??? ferrous [...] by interface; created by interface; Colonoscopy, Biopsy (41314) (01/02/2011); Colonoscopy, Remv Lesn, Snare (45938) (01/02/2011); Colonoscopy, Biopsy (11192) (N/A, 03/04/2017); Colonoscopy, Remv Lesn, Snare (14616) (N/A, 03/04/2017); salpingectomy; orthopedic surgery; Vag Hyst, Rmv Tube/Ovary (26344) (N/A, 03/10/2018); Combined Ant/Post Colporrhaphy (37206) (N/A, 03/10/2018); Sling Oper Stres Incontinence (79753) (N/A, 03/10/2018); Revaginal Prolapse, Uterosacral (00810) (N/A, 03/10/2018); XR Fluoro Guided Joint Injection Large Right (Right, 03/09/2019); Colonoscopy, Diagnostic (57603) (N/A, 11/09/2019); Colonoscopy, Biopsy (82477) (N/A, 11/09/2019); and Colonoscopy, Biopsy (95414) (N/A, 12/19/2020). Family History: family history includes [...] sulfasalazine 5. Please have labs checked at [facility]; once on new medications, will need routine labs every 2 weeks at [facility] until next follow-up visit 6. Await opinion from Dr. Fong regarding medications 7. Follow-up in person or via telehealth in 8-12 weeks I spent 40 min today reviewing the chart preparing for this visit, counseling the patient [id number] on the issues outlined above, and documenting an implementing the plan. The patient was in [place] during this video telehealth visit. Freddy Rachel MD Behavioral Specialistsupervisor leaf spring repair Co-Director, [facility] Section of Gastroenterology [place] [address] documented in this encounter Plan of Treatment Upcoming Encounters Date Type Department Care Team (Late st Contact Info) Description 04/19/2024 10:00 AM EDT Hospital Encounter Non-Invasive [place] [phone] Arrived 04/29/2024 9:50 [place] [phone] Luis Alfredo Velazquez MD [facility] [place] [address] 04/29/2024 9:50 AM EDT Appointment MRI at [address]1000 Luis Alfredo Velazquez MD [facility] [place] [address] 06/07/2024 2:30 PM EDT TH Visit (TeleHealth) Gastroenterology at [place] [address] Dajuan Rachel MD [facility] [place] [address] 07/02/2024 2:00 PM EDT Appointment [place] [address] Luis Alfredo Velazquez MD [facility] [place] [address] 07/02/2024 4:00 PM EDT Office Visit Cardiology at [place] [phone] Mars Green [place] [facility] [place] [address] 07/02/2024 4:40 PM EDT Office Visit Cardiology at [address]1000 Luis Alfredo Velazquez MD [facility] [place] [address] documented as of this encounter Visit Diagnoses Diagnosis Ulcerative pancolitis without complication documented in this encounter Care Teams Fence Machine Operator Relationship Specialty Start Date End Date Marcio Devlin DO [address] [facility] [place] [address] PCP - General Family Medicine 11/11/17 documented as of this encounter
--- OUTSIDE RECORDS SUMMARY | 2024-04-16 00:26 | XMS_ITS | Encounter Summary ---
Author Organization [facility] [place] [address] Care Team Providers Care Lead Ramp Agent Name Role Phone Marcio Devlin DO Primary Care Provider Encounter Details Date Type Department Care Team (Latest Contact Info) Description 02/05/2021 2:00 PM EDT TH Visit (TeleHealth) [place] [address] Gabe Fong MD [facility] [place] [address] Ulcerative colitis without complications, unspecified location; High [...] AM EDT Hospital Encounter Non-Invasive Cardiology Lab [place] [phone] Arrived 04/29/2024 9:50 AM EDT Appointment MRI at [place] [address] Luis Alfredo Velazquez MD [facility] [place] [address] 04/29/2024 9:50 AM EDT Appointment MRI at [place] [phone] Luis Alfredo Velazquez MD [facility] [place] [address] 06/07/2024 2:30 PM EDT TH Visit (TeleHealth) Gastroenterology at [place] [phone] Dajuan Rachel MD [facility] [place] [address] 07/02/2024 2:00 PM EDT Appointment Non-[place] [phone] Luis Alfredo Velazquez MD [facility] [place] [address] 07/02/2024 4:00 PM EDT Office Visit Cardiology at [address] [phone] [place] [facility] [place] [address] 07/02/2024 4:40 PM EDT Office Visit Cardiology at [address] [phone] Luis Alfredo Velazquez MD [facility] [place] [address] documented as of this encounter Visit Diagnoses [...] location documented in this encounter Care Teams Lead Ramp Agent Relationship Specialty Start Date End Date Marcio Devlin DO [address] [place] [address] PCP - General Family Medicine 11/11/17 documented as of this encounter
--- OUTSIDE RECORDS SUMMARY | 2024-04-16 00:26 | XMS_ITS | Encounter Summary ---
Author Organization [facility] Address [facility] [place] [address] Care Team Providers Care Radio Installer Name Role Phone Marcio Devlin DO Primary Care Provider [phone] Encounter Details Date Type Department Care Team (Latest Contact Info) Description 08/07/2020 2:30 PM EST TH Visit (TeleHealth) [place] [phone] Gabe Fong MD [facility] [place] [address] Inflammatory arthropathy; Ulcerative colitis without complications, unspecified [...] WITH BX performed by YAQUELIN ESTRADA at [facility] ENDOSCOPY ??? PRO COLONOSCOPY, BIOPSY N/A 03/04/2017 COLONOSCOPY FLEXIBLE, WITH BX (WRVU 3.66) performed by Raúl Austin MD at [facility] ENDOSCOPY ??? PRO COLONOSCOPY, BIOPSY N/A 11/09/2019 COLONOSCOPY FLEXIBLE, WITH BX (WRVU 3.66) performed by Froilan Sahni MD at [facility] ENDOSCOPY ??? PRO COLONOSCOPY, DIAGNOSTIC N/A 11/09/2019 COLONOSCOPY, DIAGNOSTIC performed by Froilan Sahni MD at [facility] ENDOSCOPY ??? PRO COLONOSCOPY, REMV LESN, SNARE 01/02/2011 COLONOSCOPY, POLYPECTOMY, REMOVAL LESION BY SNARE performed by YAQUELIN ESTRADA at [facility] ENDOSCOPY ??? PRO COLONOSCOPY, REMV LESN, SNARE N/A 03/04/2017 COLONOSCOPY, POLYPECTOMY, REMOVAL LESION BY SNARE (WRVU 4.67) performed by Raúl Austin MD at [facility] ENDOSCOPY ??? PRO COMBINED ANT/POST COLPORRHAPHY N/A 03/10/2018 COLPORRHAPHY ANTERIOR-POSTERIOR; INC CYSTOURETHROSCOPY (WRVU 14.44) performed by Liang Fong MD at [facility] MAIN OR ??? PRO REVAGINAL PROLAPSE, UTEROSACRAL N/A 03/10/2018 COLPOPEXY, VAGINAL, INTRAPERITONEAL APPROACH (WRVU 11.66) [facility] ??? PRO SLING OPER STRES INCONTINENCE N/A 03/10/2018 URETHRAL SUSPENSION, SLING\FASCIA OR SYNTHETIC ([facility] performed by Liang Fong MD at [facility] MAIN OR ??? PRO VAG HYST, RMV TUBE/OVARY N/A 03/10/2018 HYSTERECTOMY, VAGINAL, REMOVAL TUBE(S) & OR OVARY(S) ([facility] 15.94) performed by Liang Fong MD at [facility] MAIN OR ??? SALPINGECTOMY ??? XR FLUORO INJECTION DRAINAGE JOINT LG RIGHT Right 03/09/2019 XR Fluoro Guided Joint Injection Large Right 03/09/2019 [facility] RAD XRAY Family History Problem Relation [...] file Gets together: Not on file Attends confucianist service: Not on file Active member of [...] mouth daily. ??? SUMAtriptan (IMITREX) 20 mg/actuation [place], Non-Aerosol 1 spray as needed. ??? ferrous [...] mouth daily. ??? SUMAtriptan (IMITREX) 20 mg/actuation [place], Non-Aerosol 1 spray as needed. ??? ferrous [...] EDT Hospital Encounter Non-[place] [address] Arrived 04/29/2024 9:50 [place] [phone] Luis Alfredo Velazquez MD [facility] [place] [address] 04/29/2024 9:50 [place] [phone] Luis Alfredo Velazquez MD [facility] [place] [address] 06/07/2024 2:30 PM EDT TH Visit (TeleHealth) Gastroenterology at [place] [phone] Dajuan Rachel MD [facility] [place] [address] 07/02/2024 2:00 PM EDT Appointment Non-Invasive Cardiology Lab [address]1000 Luis Alfredo Velazquez MD [facility] [place] [address] 07/02/2024 4:00 PM EDT Office Visit Cardiology at [place] [phone] [place] [facility] [place] [address] 07/02/2024 4:40 PM EDT Office Visit Cardiology at [place] [phone] Luis Alfredo Velazquez MD [facility] [place] [address] documented as of this encounter Visit Diagnoses [...] location documented in this encounter Care Teams Radio Installer Relationship Specialty Start Date End Date Marcio Devlin DO [address] [place] [address] PCP - General Family Medicine 11/11/17 documented as of this encounter
--- OUTSIDE RECORDS SUMMARY | 2024-04-16 00:26 | XMS_ITS | Encounter Summary ---
[place] [address] Care Team Providers Care Assembly Line Brazer Name Role Phone Marcio Devlin DO Primary Care Provider [phone] Reason for Visit * Reason Onset Date Comments Reminder Appointment 01/29/2021 Encounter Details Date Type Department Care Team (Late st Contact Info) Description 01/29/2021 Telephone [place] [phone] Libby Guerin CCMA Reminder Appointment Social History [...] Hospital Encounter Non-Invasive Cardiology Lab [place] [phone] Arrived 04/29/2024 9:50 AM EDT Appointment MRI at [address]1000 uLis Alfredo Velazquez MD [facility] [place] [address] 04/29/2024 9:50 AM EDT Appointment MRI at [address]1000 Luis Alfredo Velazquez MD [facility] [place] [address] 06/07/2024 2:30 PM EDT TH Visit (TeleHealth) [place] [address] Dajuan Rachel MD [facility] [place] [address] 07/02/2024 2:00 PM EDT Appointment Non-Invasive Cardiology Lab [place] [phone] Luis Alfredo Velazquez MD [facility] [place] [address] 07/02/2024 4:00 PM EDT Office Visit Cardiology at [place] [phone] [place] [facility] [place] [address] 07/02/2024 4:40 PM EDT Office Visit Cardiology at [address] [address] Luis Alfredo Velazquez MD [facility] [place] [address] documented as of this encounter Visit Diagnoses Not on filedocumented in this encounter Care Teams Assembly Line Brazer Relationship Specialty Start Date End Date Marcio Devlin DO 4 [facility] [place] [address] PCP - General Family Medicine 11/11/17 documented as of this encounter
--- OUTSIDE RECORDS SUMMARY | 2024-04-16 00:26 | XMS_ITS | Encounter Summary ---
Author Organization [facility] [place] [address] Care Team Providers Care Mill Recorder Name Role Phone Marcio Devlin DO Primary Care Provider [phone] Reason for Visit * Reason Comments Specialty Pharmacy Review Encounter Details Date Type Department Care Team (Late st Contact Info) Description 08/28/2020 Specialty [place] [phone] Berenice Novak, CORK FLOOR INSTALLER Social History Tobacco Use Types Packs/Day Years [...] Novak - 08/28/2020 11:59 PM EST [facility] has completed a benefits investigation for Kim Graff Shantel to review their eligibility to fill at [facility]. Per patient's medication list they are prescribed Humira and the medication is not able to be filled at the [facility]. documented in this encounter Plan of Treatment Upcoming Encounters Date Type Department Care Team (Late st Contact Info) Description 04/19/2024 10:00 AM EDT Hospital Encounter Non-Invasive Cardiology Lab [address]1000 Arrived 04/29/2024 9:50 AM EDT Appointment MRI at [place] [address] Luis Alfredo Velazquez MD [facility] [place] [address] 04/29/2024 9:50 AM EDT Appointment MRI at [place] [address] Luis Alfredo Velazquez MD [facility] [place] [address] 06/07/2024 2:30 PM EDT TH Visit (TeleHealth) Gastroenterology at [place] [address] Dajuan Rachel MD [facility] [place] [address] 07/02/2024 2:00 PM EDT Appointment Non-Invasive Cardiology Lab [address]1000 Luis Alfredo Velazquez MD [facility] [place] [address] 07/02/2024 4:00 PM EDT Office Visit Cardiology at [place] [phone] [place] PA [facility] [place] [address] 07/02/2024 4:40 PM EDT Office Visit Cardiology at [address] [address] Luis Alfredo Velazquez MD [facility] [place] [address] documented as of this encounter Visit Diagnoses Not on filedocumented in this encounter Care Teams Mill Recorder Relationship Specialty Start Date End Date Marcio Devlin DO [address] [place] [address] PCP - General Family Medicine 11/11/17 documented as of this encounter
--- OUTSIDE RECORDS SUMMARY | 2024-04-16 00:26 | XMS_ITS | Encounter Summary ---
Author Organization [facility] [place] [address] Care Team Providers Care Running Rigger Name Role Phone Marcio Devlin DO Primary Care Provider [phone] Reason for Visit * Reason Comments Specialty Pharmacy Review adalimumab 40 mg/0.4 mL Encounter Details Date Type Department Care Team (Late st Contact Info) Description 08/07/2020 Specialty [place] [phone] Herminio Diehl Social History Tobacco Use Types [...] to review their eligibility to fill at [facility]. Per patient's medication list they are prescribed adalimumab 40 mg/0.4 mL Pen Injector Kit and the medication is not able to be filled at the [facility]. documented in this encounter Plan of Treatment Upcoming Encounters Date Type Department Care Team (Late st Contact Info) Description 04/19/2024 10:00 AM EDT Hospital Encounter Non-Invasive [place] [address] Arrived 04/29/2024 9:50 AM EDT Appointment MRI at [address]1000 Luis Alfredo Velazquez MD [facility] [place] [address] 04/29/2024 9:50 AM EDT Appointment MRI at [place] [address] Luis Alfredo Velazquez MD [facility] [place] [address] 06/07/2024 2:30 PM EDT TH Visit (TeleHealth) [place] [address] Dajuan Rachel MD [facility] [place] [address] 07/02/2024 2:00 PM EDT Appointment Non-Invasive [place] [address] Luis Alfredo Velazquez MD [facility] [place] [place] [address] 07/02/2024 4:00 PM EDT Office Visit Cardiology at [address]1000 [place], [place] [facility] [place] [address] 07/02/2024 4:40 PM EDT Office Visit Cardiology at [address] [address] Luis Alfredo Velazquez MD [facility] [place] [address] documented as of this encounter Visit Diagnoses Not on filedocumented in this encounter Care Teams Running Rigger Relationship Specialty Start Date End Date Marcio Devlin DO 4 [facility] [place] [address] PCP - General Family Medicine 11/11/17 documented as of this encounter
--- OUTSIDE RECORDS SUMMARY | 2024-04-16 00:26 | XMS_ITS | Encounter Summary ---
Author Organization [facility] [place] [address] Care Team Providers Care General Lithographic Worker Name Role Phone Marcio Devlin DO Primary Care Provider [phone] Reason for Visit * Reason Comments Specialty Pharmacy Review Encounter Details Date Type Department Care Team (Late st Contact Info) Description 05/15/2021 Specialty Pharm[place] [phone] Berenice Novak, [facility] Social History Tobacco Use Types Packs/Day [...] 05/15/2021 11:59 PM EDT [facility] has completed [...] AM EDT Hospital Encounter Non-[place] [address] Arrived 04/29/2024 9:50 AM EDT Appointment MRI at [address]1000 Luis Alfredo Velazquez MD [facility] [place] [address] 04/29/2024 9:50 AM EDT [place] [address] Luis Alfredo Velazquez MD [facility] [place] [address] 06/07/2024 2:30 PM EDT TH Visit (TeleHealth) Gastroenterology at [place] [phone] Dajuan Rachel MD [facility] [place] [address] 07/02/2024 2:00 PM EDT Appointment Non-[place] [address] Luis Alfredo Velazquez MD [facility] [place] [address] 07/02/2024 4:00 PM EDT Office Visit Cardiology at [address] [phone] Mars [place], YURIY [facility] [place], [place] [address] 07/02/2024 4:40 PM EDT Office Visit Cardiology at [address] [address] Luis Alfredo Velazquez MD [facility] [place] [address] documented as of this encounter Visit Diagnoses Not on filedocumented in this encounter Care Teams General Lithographic Worker Relationship Specialty Start Date End Date Marcio Devlin DO [address] [place] [place] [address] PCP - General Family Medicine 11/11/17 documented as of this encounter
--- OUTSIDE RECORDS SUMMARY | 2024-04-16 00:26 | XMS_ITS | Encounter Summary ---
[place] [address] Care Team Providers Care Graduate Fellow Name Role Phone Marcio Devlin DO Primary Care Provider [phone] Reason for Visit * Reason Comments Prior Authorization Stelara 90mg/mL SOSY Encounter Details Date Type Department Care Team (Late st Contact Info) Description 02/13/2021 Specialty [place] [phone] Jacky Montalvo, [facility] Social History Tobacco Use Types [...] Kim Funes Patient : 1960 Patient Address: [address] [place] [phone] (home) Medication Name: STELARA 90 MG/ML SUBCUTANEOUS SYRINGE Medication ID: [id number] Patient Location: [facility] Patient Location Comment: Subscriber Insurance: [employer] ([facility]) Subscriber Insurance Comment: Fax: Physician: Dajuan BERRY Physician Comment: Sent Via: [facility] Truong: [phone] Ref/Case/PA#: Medication Strength Frequency Requested: Stelara 90mg/mL [...] STELARA 90 MG/ML SUBCUTANEOUS SYRINGE Medication ID: [id number] Case/Reference # : [id number] Denial Summary: PA denied because there was not documentation of the patient's induction dosing. GMto do an appeal. Patient Notified of Denial: No Additional Information from insurance carrier. Please see below: None For any questions relating to this denial please reach out directly to your section's specialty pharmacist, or the specialty pharmacy team at [facility] Jacky Montalvo 02/16/21 10:02 AM * Sierra Peters, [facility] - 02/13/2021 4:04 PM EDT [facility] [...] Approved from: 03/06/2021 to 06/05/2021 Reference Number: [id number] Can be filled with: [facility] Patient Notified of Approval: To be contacted by [facility] for consult Additional Information regarding this Appeal: None For any questions relating to this appeal please reach out directly to your section's specialty pharmacist. Sierra Peters RPH 03/08/21 3:12 PM documented in this encounter Plan of Treatment Upcoming Encounters Date Type Department Care Team (Late st Contact Info) Description 04/19/2024 10:00 AM EDT Hospital Encounter Non-Invasive [place] [phone] Arrived 04/29/2024 9:50 [place] [address] Luis Alfredo Velazquez MD [facility] [place] [address] 04/29/2024 9:50 AM EDT Appointment MRI at [address]1000 Luis Alfredo Velazquez MD [facility] [place] [address] 06/07/2024 2:30 PM EDT TH Visit (TeleHealth) Gastroenterology at [place] [address] Dajuan Berry MD [facility] [place] [address] 07/02/2024 2:00 PM EDT Appointment Non-Invasive Cardiology Lab [address]1000 Luis Alfredo Velazquez MD [facility] [place] [address] 07/02/2024 4:00 PM EDT Office [place] [address] Mars Green PA [facility] [place] [address] 07/02/2024 4:40 PM EDT Office [place] [address] Luis Alfredo Velazquez MD [facility] [place] [address] documented as of this encounter Visit Diagnoses Not on filedocumented in this encounter Care Teams Graduate Fellow Relationship Specialty Start Date End Date Marcio Devlin DO [address] [place] [address] PCP - General Family Medicine 11/11/17 documented as of this encounter
--- OUTSIDE RECORDS SUMMARY | 2024-04-16 00:26 | XMS_ITS | Encounter Summary ---
Author Organization [facility] [place] [address] Care Team Providers Care Straightedge Man Name Role Phone Marcio Devlin DO Primary Care Provider [phone] Reason for Visit * Reason Comments Medication Management Encounter Details Date Type Department Care Team (Late st Contact Info) Description 03/23/2021 Specialty [place] [address] Sierra Peters RPH Social History [...] is mandated to [facility] ?? Reviewed [facility] co-pay program and recommended patient sign up for co-pay card if applicable ?? Telehealth injection teaching scheduled for 05/16/21 at 2:30 PM ?? Reviewed lab schedule with patient of every 2 weeks for 1 month starting after infusion, every month for 3 months and once every 4 months thereafter. The patient would like to utilize [facility] - orders are already in The patient was also made aware that they are eligible to participate in the [facility] ClinicalManagement Program. Services in this program include prior authorization and copay assistance, monthly refill reminders, routine pharmacist consults, and 07/04 pharmacist support during therapy. The patient was given [facility] contact information and was encouraged to [facility] with any specialty medication-related questions or concerns. Specialty pharmacy will reach out to patient two weeks prior to due date to dispense medication. Sierra Peters RPH 03/23/2021 9:31 AM documented in this encounter Plan of Treatment Upcoming Encounters Date Type Department Care Team (Late st Contact Info) Description 04/19/2024 10:00 AM EDT Hospital Encounter [place] [address] Arrived 04/29/2024 9:50 AM EDT [place] [address] Luis Alfredo Velazquez MD [facility] [place] [address] 04/29/2024 9:50 AM EDT [place] [address] Luis Alfredo Velazquez MD [facility] [place] [address] 06/07/2024 2:30 PM EDT TH Visit (TeleHealth) [place] [address] Dajuan Rachel MD [facility] [place] [address] 07/02/2024 2:00 PM EDT Appointment Non-Invasive Cardiology Lab [address] Luis Alfredo Velazquez MD [facility] [place] [address] 07/02/2024 4:00 PM EDT Office [place] [address] Mars Green PA [facility] [place] [address] 07/02/2024 4:40 PM EDT Office Visit Cardiology at [place] [phone] Luis Alfredo Velazquez MD [facility] [place] [address] documented as of this encounter Visit Diagnoses Not on filedocumented in this encounter Care Teams Straightedge Man Relationship Specialty Start Date End Date Marcio Devlin DO [address] [place] [address] PCP - General Family Medicine 11/11/17 documented as of this encounter
--- OUTSIDE RECORDS SUMMARY | 2024-04-16 00:26 | XMS_ITS | Encounter Summary ---
Author Organization [facility] [place] [address] Care Team Providers Care Supervisor Engine Assembly Name Role Phone Marcio Devlin DO Primary Care Provider [phone] Reason for Visit * Reason Comments Specialty Pharmacy Review Encounter Details Date Type Department Care Team (Late st Contact Info) Description 01/29/2021 Specialty [place] [phone] Berenice Novak, [facility] Social History Tobacco Use Types [...] Novak - 01/29/2021 11:59 PM EDT The [facility] has completed a benefits investigation for Kim Graff Shantel to review their eligibility to fill at [facility]. Per patient's medication list they are prescribed Humira and the medication is not able to be filled at the [facility]. documented in this encounter Plan of Treatment Upcoming Encounters Date Type Department Care Team (Late st Contact Info) Description 04/19/2024 10:00 AM EDT Hospital Encounter Non-Invasive Cardiology Lab [place] [phone] Arrived 04/29/2024 9:50 AM EDT Appointment MRI at [address] Luis Alfredo Velazquez MD [facility] [place] [address] 04/29/2024 9:50 AM EDT Appointment MRI at [place] [phone] Luis Alfredo Velazquez MD [facility] [place] [address] 06/07/2024 2:30 PM EDT TH Visit (TeleHealth) Gastroenterology at [address] Dajuan Rachel MD [facility] [place] [address] 07/02/2024 2:00 PM EDT Appointment Non-Invasive Cardiology Lab [place] [phone] Luis Alfredo Velazquez MD [facility] [place] [address] 07/02/2024 4:00 PM EDT Office Visit Cardiology at [address] [address] Mars Green, YURIY [facility] [place] [address] 07/02/2024 4:40 PM EDT Office Visit Cardiology at [address] [address] Luis Alfredo Velazquez MD [facility] [place] [address] documented as of this encounter Visit Diagnoses Not on filedocumented in this encounter Care Teams Supervisor Engine Assembly Relationship Specialty Start Date End Date Marcio Devlin DO [address] [place] [place] [address] PCP - General Family Medicine 11/11/17 documented as of this encounter
--- OUTSIDE RECORDS SUMMARY | 2024-04-16 00:26 | XMS_ITS | Encounter Summary ---
[place] [address] Care Team Providers Care Machine Iii Coremaker Name Role Phone Marcio Devlin DO Primary Care Provider [phone] Reason for Visit * Reason Onset Date Comments Reminder Appointment 05/15/2021 Encounter Details Date Type Department Care Team (Late st Contact Info) Description 05/15/2021 Telephone [place] [phone] Elisha Hall CMA GASTROENTEROLOGY DEPT Reminder Appointment [...] AM EDT Hospital Encounter Non[place] [address] Arrived 04/29/2024 9:50 AM EDT Appointment MRI at [place] [address] Luis Alfredo Velazquez MD [facility] [place] [address] 04/29/2024 9:50 AM EDT Appointment MRI at [place] [address] Luis Alfredo Velazquez MD [facility] [place] [address] 06/07/2024 2:30 PM EDT TH Visit (TeleHealth) Gastroenterology at [place] [address] Dajuan Rachel MD [facility] [address] 07/02/2024 2:00 PM EDT Appointment Non-Invasive Cardiology Lab [place] [phone] Luis Alfredo Velazquez MD [facility] [place] [address] 07/02/2024 4:00 PM EDT Office Visit Cardiology at [place] [phone] Mars Green PA [facility] [place] [address] 07/02/2024 4:40 PM EDT Office Visit Cardiology at [address] [address] Luis Alfredo Velazquez MD [facility] [place] [address] documented as of this encounter Visit Diagnoses Not on filedocumented in this encounter Care Teams Machine Iii Coremaker Relationship Specialty Start Date End Date Marcio Devlin DO [address] [facility] [place] [address] PCP - General Family Medicine 11/11/17 documented as of this encounter
--- OUTSIDE RECORDS SUMMARY | 2024-04-16 00:26 | XMS_ITS | Encounter Summary ---
Author Organization [facility] [place] [address] Care Team Providers Care Disbursement Clerk Name Role Phone Marcio Devlin DO Primary Care Provider [phone] Encounter Details Date Type Department Care Team (Late st Contact Info) Description 03/23/2021 Refill [place] [address] Dajuan Rachel MD [facility] [place] [address] Ulcerative pancolitis without complication Social History Tobacco [...] RPH Transfer of Services Kim Funes [address] [facility] [address] Telephone Information: The - Specialty Pharmacy has [...] patient has been advised to call the [facility] at [phone] with any questions or concerns on this referral. Thank you, Sierra Peters RPH 03/23/21 9:43 AM Patient understands no changes to current drug regimen were made at this time. documented in this encounter Plan of Treatment Upcoming Encounters Date Type Department Care Team (Late st Contact Info) Description 04/19/2024 10:00 AM EDT Hospital Encounter Non[place] [phone] Arrived 04/29/2024 9:50 AM EDT [place] [address] Luis Alfredo Velazquez MD [facility] [place] [address] 04/29/2024 9:50 AM EDT [place] [address] Luis Alfredo Velazquez MD [facility] [place] [address] 06/07/2024 2:30 PM EDT TH Visit (TeleHealth) Gastroenterology at [place] [phone] Dajuan Rachel MD [facility] [place] [address] 07/02/2024 2:00 PM EDT Appointment Non-Invasive Cardiology Lab [place] [phone] Luis Alfredo Velazquez MD [facility] [place] [address] 07/02/2024 4:00 PM EDT Office Visit Cardiology at [place] [phone] Mars Green PA [facility] [place] [address] 07/02/2024 4:40 PM EDT Office Visit Cardiology at [address] [phone] Luis Alfredo Velazquez MD [facility] [place] [address] documented as of this encounter Visit Diagnoses Diagnosis Ulcerative pancolitis without complication documented in this encounter Care Teams Disbursement Clerk Relationship Specialty Start Date End Date Marcio Devlin DO [address] [place] [address] PCP - General Family Medicine 11/11/17 documented as of this encounter
--- OUTSIDE RECORDS SUMMARY | 2024-04-16 00:26 | XMS_ITS | Encounter Summary ---
Author Organization [facility] [place] [address] Care Team Providers Care Senior Biostatistician/Group Leader Name Role Phone Marcio Devlin DO Primary Care Provider [phone] Encounter Details Date Type Department Care Team (Late st Contact Info) Description 08/28/2020 Telephone [place] [address] Elisha Hall CMA GASTROENTEROLOGY DEPT Social History [...] AM EDT Hospital Encounter Non-[place] [address] Arrived 04/29/2024 9:50 AM EDT Appointment MRI at [address]1000 Luis Alfredo Velazquez MD [facility] [place] [address] 04/29/2024 9:50 AM EDT Appointment MRI at [place] [address] Luis Alfredo Velazquez MD [facility] [place] [address] 06/07/2024 2:30 PM EDT TH Visit (TeleHealth) Gastroenterology at [address]1000 Dajuan Rachel MD [facility] [place] [address] 07/02/2024 2:00 PM EDT Appointment Non-Invasive Cardiology Lab [place] [phone] Luis Alfredo Velazquez MD [facility] [place] [address] 07/02/2024 4:00 PM EDT Office Visit Cardiology at [place] [phone] Mars Green PA [facility] [place] [address] 07/02/2024 4:40 PM EDT Office Visit Cardiology at [address] [address] Luis Alfredo Velazquez MD [facility] [place] [address] documented as of this encounter Visit Diagnoses Not on filedocumented in this encounter Care Teams Senior Biostatistician/Group Leader Relationship Specialty Start Date End Date Marcio Devlin DO [facility] [place] [address] [place] [address] PCP - General Family Medicine 11/11/17 documented as of this encounter
--- OUTSIDE RECORDS SUMMARY | 2024-04-16 00:26 | XMS_ITS | Encounter Summary ---
Author Organization [facility] [place] [address] Care Team Providers Care Blind Aide Name Role Phone Marcio Devlin DO Primary Care Provider [phone] Encounter Details Date Type Department Care Team (Latest Contact Info) Description 05/15/2021 12:00 PM EDT TH Visit (TeleHealth) [place] [address] Rosemarie Morrow, LENGTH CONTROL TESTER [facility] [place] [address] Ulcerative pancolitis without complication Social History Tobacco [...] Morrow, SKIP - 05/15/2021 12:00 PM EDT [facility] Telehealth Visit Primary care provider: Marcio [...] ?? Colonoscopy 09/19/08 ([facility] [...] 2020 - severe involvement of L colon, qdmr-gv-tsoqhobr involvement of transverse and R colon. Worse [...] Feeling better - BM 3-4x/day ( from qv39-25u/day), formed stool, no nocturnal bm - No [...] Ref Range Status ??? COLONOSCOPY 12/19/2020 Final Value:[facility] Endoscopy Procedure Date: 12/19/2020 12:03 PM Patient Name: Kim Funes Date of : 1960 Age: 60 Order #: [id number] Instrument Name: [id number] Procedure: Colonoscopy Patient Profile: This is a [...] bowel preparation was evaluated using the BBPS ([place] Bowel Preparation Scale) with scores of: Right [...] severe involvement of the left colon and uini-rq-jfjjxucd involvement of the transverse and right colon. [...] PM ??? Surgical Pathology Report 12/19/2020 Final Value:[id number] Location: 4T; EA07; A The signing pathologist [...] MD Verified: 12/26/2020 15:38 Pathologist Performed at: -[facility] Dept. of Pathology, [place], [place] ADDITIONAL STUDIES Immunohistochemistry Studies: Formalin-fixed, paraffin-embedded [...] Labs were reviewed from March. Adalimumab level ([place]) was 12.7. CBC, ESR, CMP were unremarkable. [...] this patient. Renee Morrow APRN Gastroenterology Section [facility] documented in this encounter Plan of Treatment Upcoming Encounters Date Type Department Care Team (Late st Contact Info) Description 04/19/2024 10:00 AM EDT Hospital Encounter Non-Invasive [place] [address] Arrived 04/29/2024 9:50 AM EDT Appointment MRI at [place] [address] Luis Alfredo Velazquez MD [facility] [place] [address] 04/29/2024 9:50 AM EDT Appointment MRI at [place] [address] Luis Alfredo Velazquez MD [facility] [place] [address] 06/07/2024 2:30 PM EDT TH Visit (TeleHealth) Gastroenterology at [place] [address] Dajuan Rachel MD [facility] [place] [address] 07/02/2024 2:00 PM EDT Appointment Non-Invasive Cardiology Lab [place] [address] Luis Alfredo Velazquez MD [facility] [place] [address] 07/02/2024 4:00 PM EDT Office Visit Cardiology at [place] [address] Mars Green PA [facility] [place] [address] 07/02/2024 4:40 PM EDT Office Visit Cardiology at [place] [phone] Luis Alfredo Velazquez MD [facility] [place] [address] documented as of this encounter Visit Diagnoses Diagnosis Ulcerative pancolitis without complication documented in this encounter Care Teams Blind Aide Relationship Specialty Start Date End Date Marcio Devlin DO [address] [place] [address] PCP - General Family Medicine 11/11/17 documented as of this encounter
--- OUTSIDE RECORDS SUMMARY | 2024-04-16 00:26 | XMS_ITS | Encounter Summary ---
Author Organization [facility] [place] [address] Care Team Providers Care Sweeper Cleaner Industrial Name Role Phone Marcio Devlin DO Primary Care Provider [phone] Reason for Visit * Reason Comments Medication Management Patient Education Encounter Details Date Type Department Care Team (Latest Contact Info) Description 05/16/2021 4:00 PM EDT Clinical [place] [address] Ulcerative pancolitis without complication Social [...] this encounter Progress Notes * Sierra Peters, [facility] - 05/16/2021 4:00 PM EDT Patient Injection/Medication [...] inject medication [x] [] [] Patient's - Von - safely injected into left upper thigh [...] EDT Hospital Encounter Non-Invasive [place] [address] Arrived 04/29/2024 9:50 AM EDT Appointment MRI at [place] [address] Luis Alfredo Velazquez MD [facility] [place] [address] 04/29/2024 9:50 AM EDT Appointment MRI at [place] [address] Luis Alfredo Velazquez MD [facility] [address] 06/07/2024 2:30 PM EDT TH Visit (TeleHealth) Gastroenterology at [address]1000 Dajuan Rachel MD [facility] [place] [address] 07/02/2024 2:00 PM EDT Appointment Non-Invasive Cardiology Lab [address]1000 Luis Alfredo Velazquez MD [facility] [place] [address] 07/02/2024 4:00 PM EDT Office Visit Cardiology at [address]1000 Mars Green PA [facility] [place] [address] 07/02/2024 4:40 PM EDT Office Visit Cardiology at [place] [phone] Luis Alfredo Velazquez MD [facility] [place] [address] documented as of this encounter Visit Diagnoses Diagnosis Ulcerative pancolitis without complication documented in this encounter Care Teams Sweeper Cleaner Industrial Relationship Specialty Start Date End Date Marcio Devlin [place] [place] [address] PCP - General Family Medicine 11/11/17 documented as of this encounter
--- OUTSIDE RECORDS SUMMARY | 2024-04-16 00:26 | XMS_ITS | Encounter Summary ---
Author Organization [facility] Address [facility] [place] [address] Care Team Providers Care Customer Account Specialist Name Role Phone Marcio Devlin DO Primary Care Provider [phone] Encounter Details Date Type Department Care Team (Late st Contact Info) Description 12/06/2020 Orders Only [place] [address] Dajuan Rachel MD [facility] [place] [address] Social History Tobacco Use Types Packs/Day Years [...] AM EDT Hospital Encounter Non-[place] [address] Arrived 04/29/2024 9:50 AM EDT Appointment MRI at [place] [address] Luis Alfredo Velazquez MD [facility] [place] [address] 04/29/2024 9:50 AM EDT Appointment MRI at [address] Luis Alfredo Velazquez MD [facility] [place] [address] 06/07/2024 2:30 PM EDT TH Visit (TeleHealth) Gastroenterology at [address]1000 Dajuan Rachel MD [facility] [place] [address] 07/02/2024 2:00 PM EDT Appointment Non-Invasive Cardiology Lab [address]1000 Luis Alfredo Velazquez MD [facility] [place] [address] 07/02/2024 4:00 PM EDT Office Visit Cardiology at [address]1000 Mars Green PA [facility] [place] [address] 07/02/2024 4:40 PM EDT Office Visit Cardiology at [place] [phone] Luis Alfredo Velazquez MD [facility] [place] [address] documented as of this encounter Visit Diagnoses Not on filedocumented in this encounter Care Teams Customer Account Specialist Relationship Specialty Start Date End Date Marcio Devlin DO [address] [place] [address] PCP - General Family Medicine 11/11/17 documented as of this encounter
--- OUTSIDE RECORDS SUMMARY | 2024-04-16 00:26 | XMS_ITS | Encounter Summary ---
Author Organization [place] [address] Care Team Providers Care Bundler Name Role Phone Marcio Devlin DO Primary Care Provider [phone] Reason for Visit * Auth/Cert Specialty Diagnoses / Procedures Referred By Contac t Referred To Contact Diagnoses Ulcerative colitis survey UC Procedures PRO COLONOSCOPY, DIAGNOSTIC PRO COLONOSCOPY, BIOPSY PRO COLONOSCOPY, REMV LESN, SNARE COLONOSCOPY, DIAGNOSTIC Referral ID Status Reason Start Date Expiration Date Visits Re quested Visits Authorized [id number] 1 1 Encounter Details Date Type Department Care Team (Latest Contact Info) Description 12/19/2020 11:22 AM EDT - 12/19/2020 2:23 PM EDT Hospital Encounter [place] [address] Dajuan Rachel MD [facility] [place] [address] Discharge Disposition: Home Social History Tobacco Use [...] occurs, please contact your Doctor. Please call [phone] before 8pm Mon-Fri with problems, questions or concerns. If you call after 8pm or on weekends, call the Hospital at [phone] and ask to speak to the Sr. Strategic Sourcing Manager macaroni maker and the shuffle board operator will contact that person for you. When should you call for help? Call 172 anytime you think you may need emergency [...] problems. Where can you learn more? [facility] View your After Visit Summary and more online at [email or web address] If you would like to provide feedback about your hospital experience, please call the Office of Patient and Family Relations at . If you have received this After Visit Summary in error, please immediately return it in person to the department, or notify the [facility] Privacy Office by calling toll free at between the hours of 8AM and 5PM to arrange for our retrieval of the documents at no cost to you. Content Version: 12.2 ?? [id number] [email or web address]. Care instructions adapted under license by [facility]. If you have questions about a medical condition or this instruction, always ask your healthcare professional. [employer] disclaims any warranty or liability for your [...] by mouth daily. SUMAtriptan (IMITREX) 20 mg/actuation [place], Non-Aerosol 1 spray as needed. 11/03/2017 metFORMIN [...] AM EDT Hospital Encounter [place] [address] Arrived 04/29/2024 9:50 AM EDT Appointment MRI at [address] Luis Alfredo Velazquez MD [facility] [place] [address] 04/29/2024 9:50 AM EDT Appointment MRI at [place] [address] Luis Alfredo Velazquez MD [facility] [place] [address] 06/07/2024 2:30 PM EDT TH Visit (TeleHealth) [place] [address] Dajuan Rachel MD [facility] [place] [address] 07/02/2024 2:00 PM EDT Appointment Non-Invasive Cardiology Lab [place] [phone] Luis Alfredo Velazquez MD [facility] [place] [address] 07/02/2024 4:00 PM EDT Office Visit Cardiology at [place] [phone] Mars Green PA [facility] [place] [address] 07/02/2024 4:40 PM EDT Office Visit Cardiology at [place] [phone] Luis Alfredo Velazquez MD [facility] [place] [address] documented as of this encounter Procedures Procedure [...] Routine 12/19/2020 12:53 PM EDT Colonoscopy, Biopsy ([id number]) 12/19/2020 12:34 PM EDT survey UC COLONOSCOPY Routine 12/19/2020 12:03 PM EDT documented in this encounter Results * Specimen to Pathology (12/19/2020 1:20 PM EDT) AP Specimen 12/19/2020 1:20 PM EDT 12/19/2020 1:21 PM EDT Narrative [facility] - 12/19/2020 1:21 PM EDT Specimen requisition ordered. ??Separate Pathology report to follow L Jose Rachel MD PATHOLOGY/CYTOLOGY O RDERABLES [facility] [place] [place] [address] * Specimen to Pathology (12/19/2020 1:20 PM EDT) AP Specimen 12/19/2020 1:20 PM EDT 12/19/2020 1:21 PM EDT Narrative [facility] - 12/19/2020 1:21 PM EDT Specimen requisition ordered. ??Separate Pathology report to follow L Jose Rachel MD PATHOLOGY/CYTOLOGY O IRMA Performing Organization Address City/[facility]/ZIP Co de Phone Number [facility] [place] [address] * Specimen to Pathology (12/19/2020 1:20 PM EDT) AP Specimen 12/19/2020 1:20 PM EDT 12/19/2020 1:21 PM EDT Narrative [facility] - 12/19/2020 1:21 PM EDT Specimen requisition ordered. ??Separate Pathology report to follow L Jose Rachel MD PATHOLOGY/CYTOLOGY O IRMA Performing Organization Address [facility]/ZIP Co de Phone Number [facility] [place] [place] [address] * Specimen to Pathology (12/19/2020 1:20 PM EDT) AP Specimen 12/19/2020 1:20 PM EDT 12/19/2020 1:21 PM EDT Narrative [facility] - 12/19/2020 1:21 PM EDT Specimen requisition ordered. ??Separate Pathology report to follow L Jose Rachel MD PATHOLOGY/CYTOLOGY O IRMA Performing Organization Address [facility] [place] [address] * Specimen to Pathology (12/19/2020 1:20 PM EDT) AP Specimen 12/19/2020 1:20 PM EDT 12/19/2020 1:21 PM EDT Narrative [facility] - 12/19/2020 1:21 PM EDT Specimen requisition ordered. ??Separate Pathology report to follow L Jose Rachel MD PATHOLOGY/CYTOLOGY O IRMA Performing Organization Address [facility] [place] [address] * Specimen to Pathology (12/19/2020 1:20 PM EDT) AP Specimen 12/19/2020 1:20 PM EDT 12/19/2020 1:20 PM EDT Narrative [facility] - 12/19/2020 1:20 PM EDT Specimen requisition ordered. ??Separate Pathology report to follow L Jose Rachel MD PATHOLOGY/CYTOLOGY O IRMA Performing Organization Address [facility] [place] [address] * Specimen to Pathology (12/19/2020 1:20 PM EDT) AP Specimen 12/19/2020 1:20 PM EDT 12/19/2020 1:20 PM EDT Narrative [facility] - 12/19/2020 1:20 PM EDT Specimen requisition ordered. ??Separate Pathology report to follow L Jose Rachel MD PATHOLOGY/CYTOLOGY O IRMA Performing Organization Address [facility] [place] [address] * Surgical Pathology Report (12/19/2020 12:53 PM EDT) FINAL DIAGNOSIS (AP) [id number] ? Location: 4T; EA07; A The signing [...] MD Verified: ??12/26/2020 15:38 ??Pathologist Performed at: ??-[facility] Dept. of Pathology, [place], [place] ADDITIONAL STUDIES Immunohistochemistry Studies: Formalin-fixed, paraffin-embedded [...] labeled G1-G2. ??elisa 12/26/2020 3:38 PM EDT [facility] GI Biopsy 12/19/2020 12:5 3 [...] EDT L Jose Rachel MD PATHOLOGY/CYTOLOGY O CHYNAERADARLEEN [facility] [place] [place] [address] * COLONOSCOPY (12/19/2020 12:03 PM EDT) COLONOSCOPY [facility] Endoscopy Procedure Date: 12/19/2020 12:03 PM ? Patient Name: Kim Funes ? [facility]: [id number] ? Date of : 1960 ? Age: 60 ? Order #: [id number] ? Instrument Name: [id number] ? Procedure: ? Colonoscopy Patient Profile: ? This is a 60 year old female. This ? patient has ulcerative pancolitis, is ? taking adalimumab and sulfasalazine ? and is experiencing mild symptoms. Providers: ? LBrandon Rachel MD, Sandoval Helton, ? RN, Codi [...] preparation was evaluated using ? the BBPS (Bristow Bowel Preparation ? Scale) with scores of: [...] involvement of the left colon ? and [id number] involvement of ? the transverse and right [...] CONTINUOUS, Starting on Fri12/19/20 at 1230, Until Tu12/19/20 at 1342, Endoscopy (Day of Procedure) New Bag 12/19/2020 12:24 PM EDT 100 mL/hr 100 mL/hr documented in this encounter Active and Recently Administered Medications Times are shown in EDT. Continuous Medication Order 12/17/2020 12/18/2020 12/19/2020 lactated ringers infusion (CANCELED) 100 mL/hr, Intravenous, CONTINUOUS, Starting on Fri12/19/20 at 1230, Until Tu12/19/20 at 1342, Endoscopy (Day of Procedure) 1224 [...] RN) documented in this encounter Care Teams Bundler Relationship Specialty Start Date End Date Marcio Devlin DO [address] [place] [address] PCP - General Family Medicine 11/11/17 documented as of this encounter
--- OUTSIDE RECORDS SUMMARY | 2024-04-16 00:26 | XMS_ITS | Encounter Summary ---
Author Organization [place] [address] Care Team Providers Care Chief Meteorologist Name Role Phone Marcio Devlin DO Primary Care Provider [phone] Reason for Visit * Reason Onset Date Comments Medication Refill 02/13/2021 Encounter Details Date Type Department Care Team (Late st Contact Info) Description 02/13/2021 Refill [place] [address] Dajuan Rachel MD [facility] [place] [address] Ulcerative pancolitis without complication Social History Tobacco [...] AM EDT Hospital Encounter Non-Invasive [place] [address] Arrived 04/29/2024 9:50 AM EDT Appointment MRI at [place] [address] Luis Alfredo Velazquez MD [facility] [place] [address] 04/29/2024 9:50 AM EDT Appointment MRI at [place] [address] Luis Alfredo Velazquez MD [facility] [address] 06/07/2024 2:30 PM EDT TH Visit (TeleHealth) Gastroenterology at [place] [address] Dajuan Rachel MD [facility] [place] [address] 07/02/2024 2:00 PM EDT Appointment Non-Invasive Cardiology Lab [address] Luis Alfredo Velazquez MD [facility] [place] [address] 07/02/2024 4:00 PM EDT Office Visit Cardiology at [place] [address] Mars Green PA [facility] [place] [address] 07/02/2024 4:40 PM EDT Office Visit Cardiology at [place] [address] Luis Alfredo Velazquez MD [facility] [place] [address] documented as of this encounter Visit Diagnoses Diagnosis Ulcerative pancolitis without complication documented in this encounter Care Teams Chief Meteorologist Relationship Specialty Start Date End Date Marcio Devlin DO [address] [place] [address] PCP - General Family Medicine 11/11/17 documented as of this encounter
--- OUTSIDE RECORDS SUMMARY | 2024-04-16 00:26 | XMS_ITS | Encounter Summary ---
Author Organization [place] [address] Care Team Providers Care Processing Mgr Name Role Phone Marcio Devlin DO Primary Care Provider [phone] Encounter Details Date Type Department Care Team (Late st Contact Info) Description 04/06/2020 Specialty [place] [address] Juan Carlos Joseph Social History [...] AM EDT Hospital Encounter Non-Invasive [place] [address] Arrived 04/29/2024 9:50 AM [place] [address] Luis Alfredo Velazquez MD [facility] [place] [address] 04/29/2024 9:50 AM EDT Appointment MRI at [place] [address] Luis Alfredo Velazquez MD [facility] [place] [address] 06/07/2024 2:30 PM EDT TH Visit (TeleHealth) Gastroenterology at [place] [address] Dajuan Rachel MD [facility] [place] [address] 07/02/2024 2:00 PM EDT Appointment Non-Invasive Cardiology Lab [address] Luis Alfredo Velazquez MD [facility] [place] [address] 07/02/2024 4:00 PM EDT Office Visit Cardiology at [place] [phone] Mars Green PA [facility] [place] [address] 07/02/2024 4:40 PM EDT Office Visit Cardiology at [address] Luis Alfredo Velazquez MD [facility] [place] [address] documented as of this encounter Visit Diagnoses Not on filedocumented in this encounter Care Teams Processing Mgr Relationship Specialty Start Date End Date Marcio Devlin DO [address] [place] [address], [place] [address] PCP - General Family Medicine 11/11/17 documented as of this encounter
--- OUTSIDE RECORDS SUMMARY | 2024-04-16 00:27 | XMS_ITS | Encounter Summary ---
Author Organization [facility] [place] [address] Care Team Providers Care Photographic Plate Maker Name Role Phone Marcio Devlin DO Primary Care Provider [phone] Reason for Visit * Reason Onset Date Comments Injections 02/23/2019 Encounter Details Date Type Department Care Team (Late st Contact Info) Description 02/23/2019 Telephone [place] [phone] Glenn Choe MD [facility] [place] [address] Injections Social History Tobacco Use Types Packs/Day [...] encounter Miscellaneous Notes * Telephone Encounter - [place], Angus Velazquez - 02/23/2019 9:28 AM EDT 1.) Does patient have any medication allergies? Yes // See chart 2.) Patient???s approximate weight in lbs. 188 3.) Does the patient have any contrast/dye allergies?No 4.) Does the patient have a power truck driver for this procedure? Yes 5.) Has patient [...] AM EDT Hospital Encounter Non-Invasive [place] [address] Arrived 04/29/2024 9:50 AM [place] [address] Luis Alfredo Velazquez MD [facility] [place] [address] 04/29/2024 9:50 AM EDT Appointment MRI at [place] [phone] Luis Alfredo Velazquez MD [facility] [place] [address] 06/07/2024 2:30 PM EDT TH Visit (TeleHealth) Gastroenterology at [place] [phone] Dajuan Rachel MD [facility] [place] [address] 07/02/2024 2:00 PM EDT Appointment Non-Invasive Cardiology Lab [place] [phone] Luis Alfredo Velazquez MD [facility] [place] [address] 07/02/2024 4:00 PM EDT Office Visit Cardiology at [address] [phone] Masr Green PA [facility] [place] [address] 07/02/2024 4:40 PM EDT Office Visit Cardiology at [address] [phone] Luis Alfredo Velazquez MD [facility] [place] [address] documented as of this encounter Visit Diagnoses Not on filedocumented in this encounter Care Teams Photographic Plate Maker Relationship Specialty Start Date End Date Marcio Devlin DO [address] [place] [address] PCP - General Family Medicine 11/11/17 documented as of this encounter
--- OUTSIDE RECORDS SUMMARY | 2024-04-16 00:27 | XMS_ITS | Encounter Summary ---
Author Organization [facility] [place] [address] Care Team Providers Care Concrete Wall Grinder Operator Name Role Phone Marcio Devlin DO Primary Care Provider [phone] Encounter Details Date Type Department Care Team (Late st Contact Info) Description 10/01/2019 2:00 PM EST Office [place] [phone] Gabe Fong MD [facility] [place] [address] Inflammatory arthropathy; Ulcerative colitis without complications, unspecified [...] EST Rheumatology Follow-up Note PCP: Marcio Devlin, DO [address] [place] [address] Rheumatological History: 1. UC associated Ankylosing Spondylitis [...] -Continue current meds: 1) Humira 40 mg [id number] 2) SZS 1000 mg BID -Check labs [...] AM EDT Hospital Encounter Non-[place]vasive [place] [address] Arrived 04/29/2024 9:50 [place] [address] [address] [facility] [place] [address] 04/29/2024 9:50 AM [place] [address] [address] [facility] [place] [address] 06/07/2024 2:30 PM EDT TH Visit (TeleHealth) Gastroenterology at [place] [address] [facility] [place] [address] 07/02/2024 2:00 PM EDT Appointment Non-Invasive Cardiology Lab [address] [facility] [place] [address] 07/02/2024 4:00 PM EDT Office Visit Cardiology at [place] [address] [facility] [place] [address] 07/02/2024 4:40 PM EDT Office Visit Cardiology at [place] [address] [address] [facility] [place] [address] documented as of this encounter Visit Diagnoses Diagnosis Inflammatory arthropathy Arthropathy, unspecified, site unspecified Ulcerative colitis without complications, unspecified location Medication monitoring encounter Encounter for therapeutic drug monitoring High risk medication use Encounter for long-term (current) use of other medications documented in this encounter Care Teams Concrete Wall Grinder Operator Relationship Specialty Start Date End Date Marcio Devlin DO [address] [place] [address] PCP - General Family Medicine 11/11/17 documented as of this encounter
--- OUTSIDE RECORDS SUMMARY | 2024-04-16 00:27 | XMS_ITS | Encounter Summary ---
Author Organization [facility] [place] [address] Care Team Providers Care Hand Plug Shaper Name Role Phone Marcio Devlin DO Primary Care Provider [phone] Encounter Details Date Type Department Care Team (Latest Contact Info) Description 03/27/2020 10:00 AM EDT TH Visit (TeleHealth) [place] [phone] Dajuan Rachel MD [facility] [place] [address] Ulcerative pancolitis without complication Social History Tobacco [...] calprotectin that was done in November from [facility] - Repeat fecal calprotectin now, along with [...] last colonoscopy 09/19/08 (Dr. Shady Luz at [facility]) for surveillance for dysplasia. Areas [...] mouth daily. ??? SUMAtriptan (IMITREX) 20 mg/actuation [place], Non-Aerosol 1 spray as needed. ??? ferrous [...] by interface; created by interface; Colonoscopy, Biopsy (86684) (01/02/2011); Colonoscopy, Remv Agustínn, Snare (07653) (01/02/2011); Colonoscopy, Biopsy (69764) (N/A, 03/04/2017); Colonoscopy, Remv Lesn, Snare (88706) (N/A, 03/04/2017); salpingectomy; orthopedic surgery; Vag Hyst, Rmv Tube/Ovary (37429) (N/A, 03/10/2018); Combined Ant/Post Colporrhaphy (26340) (N/A, 03/10/2018); Sling Oper Stres Incontinence (47945) (N/A, 03/10/2018); Revaginal Prolapse, Uterosacral (21415) (N/A, 03/10/2018); XR Fluoro Guided Joint Injection Large Right (Right, 03/09/2019); Colonoscopy, Diagnostic (92812) (N/A, 11/09/2019); and Colonoscopy, Biopsy (61194) (N/A, 11/09/2019). Family History: family history includes [...] level from November that was done at [facility], so we will track that down, as [...] calprotectin that was done in November from [facility] - Repeat fecal calprotectin now, along with [...] and discussed with Dr. Wilson Atkins MD [facility] [place] [address] ATTENDING ADDENDUM I interviewed Ms. Funes via [...] with them as documented. Freddy Rachel MD Medical Radiation Dosimetristceo na Co-Director, [facility] Section of Gastroenterology [place] [address] documented in this encounter Plan of Treatment Upcoming Encounters Date Type Department Care Team (Late st Contact Info) Description 04/19/2024 10:00 AM EDT Hospital Encounter Non-[place] [address] Arrived 04/29/2024 9:50 AM EDT Appointment MRI at [place] [phone] Luis Alfredo Velazquez MD [facility] [place] [address] 04/29/2024 9:50 AM EDT [place] [phone] Luis Alfredo Velazquez MD [facility] [place] [address] 06/07/2024 2:30 PM EDT TH Visit (TeleHealth) Gastroenterology at [place] [phone] Dajuan Rachel MD [facility] [place] [address] 07/02/2024 2:00 PM EDT Appointment Non-[place] [phone] Luis Alfredo Velazquez MD [facility] [place] [address] 07/02/2024 4:00 PM EDT Office [place] [address] Mars Green PA [facility] [place] [address] 07/02/2024 4:40 PM EDT Office Visit Cardiology at [place] [phone] Luis Alfredo Velazquez MD [facility] [place] [address] documented as of this encounter Visit Diagnoses Diagnosis Ulcerative pancolitis without complication documented in this encounter Care Teams Hand Plug Shaper Relationship Specialty Start Date End Date Marcio Devlin DO [address] [place] [address] PCP - General Family Medicine 11/11/17 documented as of this encounter
--- OUTSIDE RECORDS SUMMARY | 2024-04-16 00:27 | XMS_ITS | Encounter Summary ---
Author Organization [facility] [place] [place] [address] Care Team Providers Care Permit Review Assistant Name Role Phone Marcio Devlin DO Primary Care Provider [phone] Reason for Referral * Diagnostic Test (Routine) - Closed Specialty Diagnoses / Procedures Referred By Contac t Referred To Contact Radiology Diagnoses Ankylosing spondylitis, unspecified site of spine Procedures DXA Central-Spine, Hip, And/Or Whole Body (Generic) Nico Campbell [facility] [place] [address] [facility] Breathometer Xray [address] [place] [address] [place] [address] Referral ID Status Reason Start Date Expiration Date V isits Requested Visits Authorized [id number] Closed Specialty Service Requested 08/31/2018 08/31/2019 1 1 Reason for Visit * Diagnostic Test (Routine) - Closed Specialty Diagnoses / Procedures Referred By Contac t Referred To Contact Radiology Diagnoses Ankylosing spondylitis, unspecified site of spine Procedures DXA Central-Spine, Hip, And/Or Whole Body (Generic) Nico Campbell [facility] [place] [address] [facility] Rad Xray [address] [place] [address] [place] [address] Referral ID Status Reason Start Date Expiration Date V isits Requested Visits Authorized [id number] Closed Specialty Service Requested 08/31/2018 08/31/2019 1 1 Encounter Details Date Type Department Care Team (Latest Contact Info) Description 06/01/2019 12:55 PM EDT - 06/01/2019 11:59 PM EDT Hospital Encounter XRay at [address] [place] [address] Oc Gresham MD [facility] [place] [address] Ankylosing spondylitis, unspecified site of spine Discharge [...] by mouth daily. SUMAtriptan (IMITREX) 20 mg/actuation [place], Non-Aerosol 1 spray as needed. 11/03/2017 metFORMIN [...] AM EDT Hospital Encounter Non-[place] [address] Arrived 04/29/2024 9:50 AM EDT Appointment MRI at [place] [address] Luis Alfredo Velazquez MD [facility] [address] 04/29/2024 9:50 AM EDT Appointment MRI at [place] [address] Luis Alfredo Velazquez MD [facility] [place] [address] 06/07/2024 2:30 PM EDT TH Visit (TeleHealth) Gastroenterology at [place] [address] Dajuan Rachel MD [facility] [place] [address] 07/02/2024 2:00 PM EDT Appointment Non-Invasive Cardiology Lab [place] [address] Luis Alfredo Velazquez MD [facility] [place] [address] 07/02/2024 4:00 PM EDT Office Visit Cardiology at [place] [address] [place] [facility] [place] [address] 07/02/2024 4:40 PM EDT Office Visit Cardiology at [address] Luis Alfredo Velazquez MD [facility] [place] [address] documented as of this encounter Procedures Procedure [...] BMD measurements and plots are available in EKeelvar under the imaging tab. Paper copies will be sent to providers without [employer] access. If you have received this report without the data sheet and do not have access to [employer], please contact Radiology Staff Trainer at [phone] Friday thru Friday 8am-4pm. Thank you for [...] BMD measurements and plots are available in EKeelvarunder the imaging tab. Paper copies will be sent to providers without Machine Talker access.If you have received this report without the data sheet and do not haveaccess to [employer], please contact Radiology Staff Trainer at [phone] Friday thruFriday 8am-4pm. Thank you for letting us participate in the care of this patient. Forquestions regarding this report, please contact the number below. Oc Gresham MD [facility] DEXA ORDERABLES documented in this encounter Visit Diagnoses Diagnosis Ankylosing spondylitis, unspecified site of spine documented in this encounter Care Teams Permit Review Assistant Relationship Specialty Start Date End Date Marcio Devlin DO [address] [place] [address] PCP - General Family Medicine 11/11/17 documented as of this encounter
--- OUTSIDE RECORDS SUMMARY | 2024-04-16 00:27 | XMS_ITS | Encounter Summary ---
[place] [address] Care Team Providers Care Tire Man Name Role Phone Marcio Devlin DO Primary Care Provider [phone] Reason for Visit * Reason Onset Date Comments Prior Authorization 02/23/2019 Humira Encounter Details Date Type Department Care Team (Late st Contact Info) Description 02/23/2019 [place] [phone] Dennis Solorzano CPHT Prior Authorization (Humira) Social [...] REQUIREMENT: Must Fill With [facility] CASE/REFERENCE # [id number] APPROVAL NOTIFICATION RECEIVED VIA: Telephone COPAY: COPAY ASSISTANCE NEEDED?: NOTES: * Telephone Encounter - Alana Recio - 02/24/2019 8:24 AM EDT Received fax from [facility] stating: Plan reviews are not handled by [employer] Please call [phone] for the PA Autofax * Telephone Encounter - Dennis Solorzano CPHT - 02/23/2019 9:05 AM EDT [facility], Medication Prior Authorization Patient: Kim Funes Patient : 1960 Patient Address: [address] [place] [phone] (home) Medication: Humira Subscriber Insurance: [employer] Physician: Nico Campbell Sent Via: Fax Truong: Eda/Harmeet/YURIY#: Medication Strength Frequency Requested: Humira 40 mg/0.4 ml PNKT Inject 40 mg (1 Pen) Subcutaneously Every 14 Days Qty/Day Supply: New Start: No Diagnosis & ICD-10 Code: Ankylosing Spondylitis M45.9 documented in this encounter Plan of Treatment Upcoming Encounters Date Type Department Care Team ([facility] st Contact Info) Description 04/19/2024 10:00 AM EDT Hospital Encounter Non-Invasive [place] [address] Arrived 04/29/2024 9:50 AM [place] [address] Luis Alfredo Velazquez MD [facility] [place] [address] 04/29/2024 9:50 AM EDT Appointment MRI at [place] [address] Luis Alfredo Velazquez MD [facility] [place] [address] 06/07/2024 2:30 PM EDT TH Visit (TeleHealth) Gastroenterology at [place] [phone] Dajuan Rachel MD [facility] [address] 07/02/2024 2:00 PM EDT Appointment Non-Invasive Cardiology Lab [place] [phone] Luis Alfredo Velazquez MD [facility] [place] [address] 07/02/2024 4:00 PM EDT Office Visit Cardiology at [place] [phone] [place] [facility] [place] [address] 07/02/2024 4:40 PM EDT Office Visit Cardiology at [place] [phone] Luis Alfredo Velazquez MD [facility] [place] [address] documented as of this encounter Visit Diagnoses Not on filedocumented in this encounter Care Teams Tire Man Relationship Specialty Start Date End Date Marcio Devlin DO [address] [facility] [address] PCP - General Family Medicine 11/11/17 documented as of this encounter
--- OUTSIDE RECORDS SUMMARY | 2024-04-16 00:27 | XMS_ITS | Encounter Summary ---
Author Organization [facility] Address [facility] [place] [address] Care Team Providers Care Buying Agent Name Role Phone Marcio Devlin DO Primary Care Provider [phone] Encounter Details Date Type Department Care Team (Latest Contact Info) Description 03/09/2019 9:50 AM EDT - 03/09/2019 11:59 PM EDT Hospital Encounter XRay at [address] [place] [address] Glenn Choe MD [facility] [place] [address] Primary osteoarthritis of right hip Discharge Disposition: [...] telephone the diagnostic section of radiology at [phone]. documented in this encounter Medications at Time of Discharge Medication Sig Dispensed Refills Start Date End Date PROAIR HFA 90 mcg/actuation HFA Aerosol Inhaler as needed. 07/20/2018 topiramate 50 mg capsule,sprinkle,ER 24hr TAKE ONE CAPSULE BY MOUTH TWICE A DAY 3 08/25/2018 aspirin 81 mg Tablet, Delayed Release (E.C.) Take 81 mg by mouth daily. SUMAtriptan (IMITREX) 20 mg/actuation [place], Non-Aerosol 1 spray as needed. 11/03/2017 metFORMIN [...] EDT Hospital Encounter Non-Invasive [place] [address] Arrived 04/29/2024 9:50 AM EDT Appointment MRI at [address] Luis Alfredo Velazquez MD [facility] [place] [address] 04/29/2024 9:50 AM EDT Appointment MRI at [address] Luis Alfredo Velazquez MD [facility] [place] [address] 06/07/2024 2:30 PM EDT TH Visit (TeleHealth) Gastroenterology at [place] [address] Dajuan Rachel MD [facility] [address] 07/02/2024 2:00 PM EDT Appointment Non-Invasive Cardiology Lab [place] [address] Luis Alfredo Velazquez MD [facility] [place] [address] 07/02/2024 4:00 PM EDT Office Visit Cardiology at [address] [place] [facility] [place] [address] 07/02/2024 4:40 PM EDT [place] [address] Luis Alfredo Velazquez MD [facility] [place] [address] documented as of this encounter Procedures Procedure [...] electronic medical record and allergies, as per [facility] protocol. The patient was placed supine on [...] relevant electronic medicalrecord and allergies, as per [facility] protocol. The patient was placed supine on [...] mg injection Intra-articular, ONCE, 1 dose, On Tu03/09/19 at 1045 Given 03/09/2019 10:30 AM EDT documented in this encounter Care Teams Buying Agent Relationship Specialty Start Date End Date Marcio Devlin DO [address] [place] [address] PCP - General Family Medicine 11/11/17 documented as of this encounter
--- OUTSIDE RECORDS SUMMARY | 2024-04-16 00:27 | XMS_ITS | Encounter Summary ---
Author Organization Counts Include [facility] Address [facility] [place] [address] Care Team Providers Care Insurance Account Executive Name Role Phone Marcio Devlin DO Primary Care Provider [phone] Encounter Details Date Type Department Care Team (Late st Contact Info) Description 11/09/2019 Orders [place] [phone] Froilan Sahni MD [facility] [place] [address] Ulcerative pancolitis without complication; Adalimumab (Humira) long-term [...] AM EDT Hospital Encounter Non-Invasive [place] [address] Arrived 04/29/2024 9:50 AM EDT Appointment MRI at [place] [address] Luis Alfredo Velazquez MD [facility] [place] [address] 04/29/2024 9:50 AM EDT Appointment MRI at [place] [address] Luis Alfredo Velazquez MD [facility] [place] [address] 06/07/2024 2:30 PM EDT TH Visit (TeleHealth) Gastroenterology at [place] [address] Dajuan Rachel MD [facility] [place] [address] 07/02/2024 2:00 PM EDT Appointment Non-Invasive Cardiology Lab [place] [address] Luis Alfredo Velazquez MD [facility] [place] [address] 07/02/2024 4:00 PM EDT Office Visit Cardiology at [place] [address] [address] [place] [facility] [place] [address] 07/02/2024 4:40 PM EDT Office Visit Cardiology at [place] [phone] Luis Alfredo Velazquez MD [facility] [place] [address] (work) documented as of this encounter Results * Adalimumab Quant with Reflex to Antibody (11/09/2019 1:19 PM EST) Adalimumab Level 6.0 mcg/mL [facility] Comment: For clinical assessment of response to therapy, adalimumab should be measured at trough. When adalimumab trough concentrations are greater than 5.0 mcg/mL, clinically relevant cdcysalodr-mf-lacddvezfg are unlikely and reflex testing will not be performed. REFERENCE VALUE Limit of Quantitation = 0.8 mcg/mL ADDITIONAL INFORMATION This test was developed and its performance characteristics determined by [facility] in a manner consistent with CLIA requirements. This test has not been cleared or approved by the U.S. Food and Drug Administration. Test Performed by: [facility] - [place] [address] [place] [address] Manager Assisted Living: Oc Lorenzo M.D. Ph.D.; CLIA# [id number] Blood specimen (specimen) 11/09/2019 1:19 PM EST 11/10/2019 8:27 AM EST Narrative Resulting Agency Comment Spec In Lab Froilan Sahni MD CHEMISTRY ORDERAB LES Performing Organization Address City/[facility] [address]/[facility] Co de Phone Number [facility] [place] [address] * Hepatitis B Surface Antigen (11/09/2019 1:19 PM EST) HepB Surface Ag Negative Negative [facility] Blood specimen (specimen) 11/09/2019 1:19 PM EST 11/09/2019 1:30 PM EST Narrative Resulting Agency Comment Spec In Lab Froilan Sahni MD CHEMISTRY ORDERAB LES Performing Organization Address [facility] [address]/[facility] Co de Phone Number [facility] [place] [address] * Hepatitis B Surface Antibody (11/09/2019 1:19 PM EST) HepB Surface Ab Quant 61.4 IU/L [facility] Comment: HepB Surface Ab Quant: Unvaccinated: < 8.5 IU/L Vaccinated: > 11.5 IU/L HepB Surface Ab Positive [facility] Comment: Patient is considered to be immune to HBV infection. Expected Results: Vaccinated: Positive Unvaccinated: Negative Blood specimen (specimen) 11/09/2019 1:19 PM EST 11/09/2019 1:30 PM EST Narrative Resulting Agency Comment Spec In Lab Froilan Sahni MD IMMUNOLOGY ORDERA BLES Performing Organization Address [facility] [address]/[facility] Co de Phone Number [facility] [place] [address] * Hepatitis B Core Antibody, Total (11/09/2019 1:19 PM EST) Pathologist [facility] Hep B Core Ab Negative Negative [facility] Blood specimen (specimen) 11/09/2019 1:19 PM EST 11/09/2019 1:30 PM EST Narrative Resulting Agency Comment Spec In Lab Froilan Sahni MD CHEMISTRY ORDERAB LES Performing Organization Address [facility] [address]/[facility] Co de Phone Number [facility] [place] [address] * QuantiFERON-TB Gold (11/09/2019 1:19 PM EST) QFT Nil 0.040 IU/mL [facility] QFT TB Ag1-Nil 0.010 IU/mL [facility] QFT TB Ag2-Nil 0.100 IU/mL [facility] QFT Mitogen-Nil >10.000 IU/mL [facility] Quantiferon TB Negative Negative [facility] Quantiferon TB Interp M. tuberculosis [...] affect immune function, or other immunological factors. [facility] Comment: The performance of the [...] Lab Froilan Sahni MD CHEMISTRY ORDERAB LES [facility] [place] [address] * Comprehensive metabolic panel (non-fasting) (11/09/2019 1:19 PM EST) Glucose Lvl 124 65 - 199 mg/dL [facility] Comment:Diabetes: >=200 mg/d L plus symptoms BUN 8 8 - 18 mg/dL [facility] Creatinine 0.80 0.70 - 1.20 mg/dL [facility] Sodium 145 135 - 145 mmol/L [facility] Potassium 3.7 3.5 - 5.0 mmol/L [facility] Comment: Please note: ??Patients with WBC >100,000 may have falsely elevated Potassium levels. ??For accurate Potassium quantification in these patients send serum separator tube (gold top) for subsequent determinations. ??Contact the Clinical Chemistry Laboratory if there are any questions. Chloride 105 98 - 107 mmol/L [facility] CO2 27 22 - 31 mmol/L [facility] Anion Gap 13 5 - 15 mmol/L [facility] Calcium 9.5 8.5 - 10.5 mg/dL [facility] Total Protein 7.9 6.1 - 8.0 gm/dL [facility] Albumin 4.0 3.2 - 5.2 gm/dL [facility] AST 19 0 - 30 unit/L [facility] ALT 12 0 - 30 unit/L [facility] Alk Phos 82 35 - 105 unit/L [facility] Total Bilirubin 0.4 0.2 - 1.3 mg/dL [facility] Estimated GFR 81 >=60 mL/min/1. 73 m?? [facility] Comment: The eGFR was calculated using the CKD-EPI equation. As with all creatinine based estimates of kidney function, eGFR values calculated with the CKD-EPI equation are not accurate in patients with acute kidney failure, extremes of body mass or the acutely ill. http://Reppify/DHMCnkf eGFR 94 >=60 mL/min/1. 73 m?? [facility] Comment: The eGFR was calculated using the CKD-EPI equation. As with all creatinine based estimates of kidney function, eGFR values calculated with the CKD-EPI equation are not accurate in patients with acute kidney failure, extremes of body mass or the acutely ill. [email or web address]/DHMCnkf Blood specimen (specimen) 11/09/2019 1:19 PM EST 11/09/2019 1:30 PM EST Narrative Resulting Agency Comment Spec In Lab Froilan Sahni MD CHEMISTRY ORDERAB LES Performing Organization Address City/[facility] [address]/ZIP Co de Phone Number [facility] [place] [address] * (ABNORMAL) CRP, acute inflammation (11/09/2019 1:19 PM EST) CRP 5.4(H) <=4.9 mg/L [facility] Blood specimen (specimen) 11/09/2019 1:19 PM EST 11/09/2019 1:30 PM EST Narrative Resulting Agency Comment Spec In Lab Froilan Sahni MD CHEMISTRY ORDERAB LES Performing Organization Address City/[facility] [address]/[facility] Co de Phone Number [facility] [place] [address] documented in this encounter Visit Diagnoses Diagnosis Ulcerative pancolitis without complication Adalimumab (Humira) long-term use Encounter for long-term (current) use of other medications documented in this encounter Care Teams Insurance Account Executive Relationship Specialty Start Date End Date Marcio Devlin DO [address] [place] [address] PCP - General Family Medicine 11/11/17 documented as of this encounter
--- OUTSIDE RECORDS SUMMARY | 2024-04-16 00:27 | XMS_ITS | Encounter Summary ---
Author Organization [facility] [place] [address] Care Team Providers Care Interpreter Name Role Phone Marcio Devlin DO Primary Care Provider [phone] Reason for Visit * Consultation (Urgent) - Specialty Diagnoses / Procedures Referred By Missy escalera Referred To Contact Gastroenterology Diagnoses ibd Procedures consult Froilan Sahni MD [facility] [place] [address] [facility] [address] [place] [address] Referral ID Status Reason Start Date Expiration Date V isits Requested Visits Authorized [id number] 11/09/2019 11/08/2020 1 1 Encounter Details Date Type Department Care Team (Late st Contact Info) Description 11/15/2019 1:00 PM EST Office Visit [place] [address] Rosemarie Morrow, SKIP [facility] [place] [address] Ulcerative pancolitis without complication Social [...] this encounter Progress Notes * Rosemarie Morrow, PEAT SHREDDER TENDER - 11/15/2019 1:00 PM EST GASTROENTEROLOGY, INFLAMMATORY [...] ?? Colonoscopy 09/19/08 (Dr. Shady Luz at [facility]). Areas of skip inflammation in transverse, descending, & rectosigmoid. Upon retroflexion, a rectal mucosal tear requiring subsequent admission for antibiotics. Biopsies: normal ileum, non- specific eosinophilic infiltration of the cecum, chronic inactive colitis in the descending, rectum, sigmoid, and rectum. The transverse colon revealed moderate to severe chronic, active colitis. ?? Last colonoscopy 01/03/2011 (Dr. Yaquelin Chan) - [id number] inflammation rectum to cecum withan inflammatory sigmoid [...] Procedure Date: 03/17/2006 ??? ORTHOPEDIC SURGERY THR 2006 ??? PRO COLONOSCOPY, BIOPSY 01/02/2011 COLONOSCOPY FLEXIBLE, WITH BX performed by YAQUELIN CHAN at [facility] ENDOSCOPY ??? PRO [...] BY SNARE performed by YAQUELIN CHAN at [facility] ENDOSCOPY ??? PRO [...] 11.66) performed by Liang Fong MD at [facility] OR ??? PRO SLING OPER STRES INCONTINENCE [...] Right 03/09/2019 [facility] RAD XRAY Social History Socioeconomic History [...] file Gets together: Not on file Attends shinto service: Not on file Active member of [...] Result status: Final Resulting lab: PROVATION Value: [facility] Endoscopy Procedure Date: 11/09/2019 9:34 AM ? Patient Name: Kim Perez ? Date of : 1960 ? Age: 59 ? Order #: [id number] ? Instrument Name: [id number] ? Procedure: ? Colonoscopy Indications: ? High risk colon cancer surveillance: ?Ulcerative pancolitis of 8 (or more) ?years duration Patient Profile: ? This is a 59 year old female. This ?patient has ulcerative pancolitis, is ?taking adalimumab and is experiencing ?mild symptoms. Providers: ? Froilan Sahni MD, Avani Hayes ?Sarah, FRANCESCA, Lawrence Roberto MD: ?Marcio Devlin, DO Medicines: ? Midazolam 4.5 [...] AM EDT Hospital Encounter Non-[place] [phone] Arrived 04/29/2024 9:50 AM EDT Appointment MRI at [place] [address] Luis Alfredo Velazquez MD [facility] [address] 04/29/2024 9:50 AM EDT Appointment MRI at [place] [address] Luis Alfredo Velazquez MD [facility] [place] [address] 06/07/2024 2:30 PM EDT TH Visit (TeleHealth) Gastroenterology at [address] Dajuan Rachel MD [facility] [address] 07/02/2024 2:00 PM EDT Appointment Non-Invasive Cardiology Lab [address] Luis Alfredo Velazquez MD [facility] [place] [address] 07/02/2024 4:00 PM EDT Office Visit Cardiology at [address] [place] [facility] [place] [address] 07/02/2024 4:40 PM EDT Office Visit Cardiology at [place] [phone] Luis Alfredo Velazquez MD [facility] [place] [address] documented as of this encounter Visit Diagnoses Diagnosis Ulcerative pancolitis without complication documented in this encounter Care Teams Interpreter Relationship Specialty Start Date End Date Marcio Devlin [place] [address] PCP - General Family Medicine 11/11/17 documented as of this encounter
--- OUTSIDE RECORDS SUMMARY | 2024-04-16 00:27 | XMS_ITS | Encounter Summary ---
Author Organization [facility] [place] [address] Care Team Providers Care Supervisor Stave Finishing Name Role Phone Marcio Devlin DO Primary Care Provider [phone] Reason for Referral * Consultation (Routine) - Closed Specialty Diagnoses / Procedures Referred By Contac t Referred To Contact Endocrinology Diagnoses Ulcerative colitis without complications, unspecified location Osteopenia, unspecified location Ulcerative colitis without complications, unspecified location Osteopenia, unspecified location Gabe oFng MD [facility] [address] [address] [facility] Endocrinology [address] [place] [phone] Referral ID Status Reason Start Date Expiration Date V isits Requested Visits Authorized [id number] Closed Consult, Test & Treat 04/06/2020 04/06/2021 1 1 Reason for Visit * Reason Comments Follow-up Encounter Details Date Type Department Care Team (Late st Contact Info) Description 04/06/2020 10:00 AM EDT [place] [address] Gabe Fong MD [facility] [address] [address] Inflammatory arthropathy; Ulcerative colitis without complications, [...] WITH BX performed by YAQUELIN ESTRADA at [facility] ENDOSCOPY ??? PRO COLONOSCOPY, BIOPSY N/A 03/04/2017 COLONOSCOPY FLEXIBLE, WITH BX (WRVU 3.66) performed by Raúl Austin MD at [facility] ENDOSCOPY ??? PRO COLONOSCOPY, BIOPSY N/A 11/09/2019 COLONOSCOPY FLEXIBLE, WITH BX (WRVU 3.66) performed by Froilan Sahni MD at [facility] ENDOSCOPY ??? PRO COLONOSCOPY, DIAGNOSTIC N/A 11/09/2019 COLONOSCOPY, DIAGNOSTIC performed by Froilan Sahni MD at [facility] ENDOSCOPY ??? PRO COLONOSCOPY, REMV LESN, SNARE 01/02/2011 COLONOSCOPY, POLYPECTOMY, REMOVAL LESION BY SNARE performed by YAQUELIN ESTRADA at [facility] ENDOSCOPY ??? PRO COLONOSCOPY, REMV LESN, SNARE N/A 03/04/2017 COLONOSCOPY, POLYPECTOMY, REMOVAL LESION BY SNARE (WRVU 4.67) performed by Raúl Austin MD at [facility] ENDOSCOPY ??? PRO COMBINED ANT/POST COLPORRHAPHY N/A 03/10/2018 COLPORRHAPHY ANTERIOR-POSTERIOR; INC CYSTOURETHROSCOPY (WRVU 14.44) performed by Liang Fong MD at [facility] MAIN OR ??? PRO REVAGINAL PROLAPSE, UTEROSACRAL N/A 03/10/2018 COLPOPEXY, VAGINAL, INTRAPERITONEAL APPROACH (WRVU 11.66) [facility] ??? PRO SLING OPER STRES INCONTINENCE N/A 03/10/2018 URETHRAL SUSPENSION, SLING\FASCIA OR SYNTHETIC (WRVU 12.13) performed by Liang Fong MD at [facility] MAIN OR ??? PRO VAG HYST, RMV TUBE/OVARY N/A 03/10/2018 HYSTERECTOMY, VAGINAL, REMOVAL TUBE(S) & OR OVARY(S) ([facility] performed by Liang Fong MD at [facility] MAIN OR ??? SALPINGECTOMY ??? XR FLUORO INJECTION DRAINAGE JOINT LG RIGHT Right 03/09/2019 XR Fluoro Guided Joint Injection Large Right 03/09/2019 [facility] RAD XRAY Family History Problem Relation [...] on phone: None Gets together: None Attends latter-day service: None Active member of club or [...] mouth daily. ??? SUMAtriptan (IMITREX) 20 mg/actuation [place], Non-Aerosol 1 spray as needed. ??? ferrous [...] mouth daily. ??? SUMAtriptan (IMITREX) 20 mg/actuation [place], Non-Aerosol 1 spray as needed. ??? ferrous [...] AM EDT Hospital Encounter Non-[place] [phone] Arrived 04/29/2024 9:50 [place] [address] Luis Alfredo Velazquez MD [facility] [place] [address] 04/29/2024 9:50 [place] [phone] Luis Alfredo Velazquez MD [facility] [place] [address] 06/07/2024 2:30 PM EDT TH Visit (TeleHealth) [place] [address] Dajuan Rachel MD [facility] [place] [address] 07/02/2024 2:00 PM EDT Appointment Non-Invasive Cardiology Lab [address] Luis Alfredo Velazquez MD [facility] [place] [address] 07/02/2024 4:00 PM EDT Office [place] [address] [place] Green [place] [facility] [place] [address] 07/02/2024 4:40 PM EDT Office Visit Cardiology at [address] [address] Luis Alfredo Velazquez MD [facility] [place] [address] Scheduled Referrals Name Type Priority Associated Diagnoses [...] complication documented in this encounter Care Teams Supervisor Stave Finishing Relationship Specialty Start Date End Date Marcio Devlin DO [address] [place] [address] PCP - General Family Medicine 11/11/17 documented as of this encounter
--- OUTSIDE RECORDS SUMMARY | 2024-04-16 00:27 | XMS_ITS | Encounter Summary ---
Author Organization [facility] Address [facility] [place] [address] Care Team Providers Care Network Engineer Administrator Name Role Phone Marcio Devlin DO Primary Care Provider [phone] Encounter Details Date Type Department Care Team (Late st Contact Info) Description 02/19/2019 [place] [phone] Nico Campbell [facility] [place] [address] Social History Tobacco Use Types Packs/Day Years [...] AM EDT Hospital Encounter Non-[place] [phone] Arrived 04/29/2024 9:50 AM EDT Appointment MRI at [place] [phone] Luis Alfredo Velazquez MD [facility] [place] [address] 04/29/2024 9:50 AM EDT Appointment MRI at [address] Luis Alfredo Velazquez MD [facility] [place] [address] 06/07/2024 2:30 PM EDT TH Visit (TeleHealth) [place] [address] Dajuan Rachel MD [facility] [place] [address] 07/02/2024 2:00 PM EDT Appointment Non-Invasive Cardiology Lab [address] Luis Alfredo Velazquez MD [facility] [place] [address] 07/02/2024 4:00 PM EDT Office Visit Cardiology at [address] [place] [facility] [place] [address] 07/02/2024 4:40 PM EDT Office Visit Cardiology at [place] [phone] Luis Alfredo Velazquez MD [facility] [place] [address] documented as of this encounter Visit Diagnoses Not on filedocumented in this encounter Care Teams Network Engineer Administrator Relationship Specialty Start Date End Date Marcio Devlin DO [address] [place] [address] PCP - General Family Medicine 11/11/17 documented as of this encounter
--- OUTSIDE RECORDS SUMMARY | 2024-04-16 00:27 | XMS_ITS | Encounter Summary ---
Author Organization [facility] [place] [address] Care Team Providers Care Heel Buffer Name Role Phone Marcio Devlin DO Primary Care Provider [phone] Encounter Details Date Type Department Care Team (Late st Contact Info) Description 11/09/2019 10:30 AM EST - 11/09/2019 11:15 AM EST Surgery [place] [phone] Froilan Sahni MD [facility] [place] [address] COLONOSCOPY, DIAGNOSTIC (WRVU 3.26) Social History Tobacco [...] occurs, please contact your Doctor. Please call [phone] before 8pm Mon-Fri with problems, questions or concerns. If you call after 8pm or on weekends, call the Hospital at [phone] and ask to speak to the [employer] project controls specialist and the nitric acid plant operator will contact that person for you. When should you call for help? Call [phone] anytime you think you may need emergency [...] cost to you. Content Version: 12.2 ?? [id number] [employer]. Care instructions adapted under license by [facility]. If you have questions about a medical condition or this instruction, always ask your healthcare professional. [employer] disclaims any warranty or liability for your [...] by mouth daily. SUMAtriptan (IMITREX) 20 mg/actuation [place], Non-Aerosol 1 spray as needed. 11/03/2017 metFORMIN [...] complication. Informed Consent signed by patient (or field sales representative). documented in this encounter Plan of Treatment Upcoming Encounters Date Type Department Care Team (Late st Contact Info) Description 04/19/2024 10:00 AM EDT Hospital Encounter Non-Invasive Cardiology Lab [place] [address] Arrived 04/29/2024 9:50 AM EDT Appointment MRI at [place] [address] Luis Alfredo Velazquez MD [facility] [place] [address] 04/29/2024 9:50 AM EDT Appointment MRI at [place] [address] Luis Alfredo Velazquez MD [facility] [place] [address] 06/07/2024 2:30 PM EDT TH Visit (TeleHealth) Gastroenterology at [address] Dajuan Rachel MD [facility] [place] [address] 07/02/2024 2:00 PM EDT Appointment Non-Invasive Cardiology Lab [place] [address] Luis Alfredo Velazquez MD [facility] [place] [address] 07/02/2024 4:00 PM EDT Office Visit Cardiology at [address] Mars Green [place] [facility] [place] [address] 07/02/2024 4:40 PM EDT Office Visit Cardiology at [address] [address] Luis Alfredo Velazquez MD [facility] [place] [address] documented as of this encounter Procedures Procedure Name Priority Date/Time Associated Diagnosis Comments SPECIMEN TO PATHOLOGY Routine 11/09/2019 11:33 AM EST SPECIMEN TO PATHOLOGY Routine 11/09/2019 11:33 AM EST SPECIMEN TO PATHOLOGY Routine 11/09/2019 11:33 AM EST SPECIMEN TO PATHOLOGY Routine 11/09/2019 11:33 AM EST SPECIMEN TO PATHOLOGY Routine 11/09/2019 11:33 AM EST SURGICAL PATHOLOGY REPORT Routine 11/09/2019 11:10 AM EST Colonoscopy, Biopsy ([id number]) 11/09/2019 10:48 AM EST hx 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 - 11/09/2019 11:33 AM EST Specimen requisition ordered. ??Separate Pathology report to follow Froilan Sahni MD PATHOLOGY/CYTOLOG Y ORDERABLES [facility] [place] [address] * Specimen to Pathology (11/09/2019 11:33 AM EST) AP Specimen 11/09/2019 11:3 3 AM EST 11/09/2019 11:[address] [facility] - 11/09/2019 11:33 AM EST Specimen requisition ordered. ??Separate Pathology report to follow Froilan Sahni MD PATHOLOGY/CYTOLOG Y ORDERABLES Performing Organization Address [facility] [place] [place] [address] * Specimen to Pathology (11/09/2019 11:33 AM EST) AP Specimen 11/09/2019 11:3 3 AM EST 11/09/2019 11:[address] [facility] - 11/09/2019 11:33 AM EST Specimen requisition ordered. ??Separate Pathology report to follow Froilan Sahni MD PATHOLOGY/CYTOLOG Y ORDERABLES Performing Organization Address City/[facility] [place] [place] [address] * Specimen to Pathology (11/09/2019 11:33 AM EST) AP Specimen 11/09/2019 11:3 3 AM EST 11/09/2019 11:[address] [facility] - 11/09/2019 11:33 AM EST Specimen requisition ordered. ??Separate Pathology report to follow Froilan Sahni MD PATHOLOGY/CYTOLOG Y ORDERABLES Performing Organization Address [facility] [place] [place] [address] * Specimen to Pathology (11/09/2019 11:33 AM EST) AP Specimen 11/09/2019 11:3 3 AM EST 11/09/2019 11:[address] [facility] - 11/09/2019 11:33 AM EST Specimen requisition ordered. ??Separate Pathology report to follow Froilan Sahni MD PATHOLOGY/CYTOLOG Y ORDERABLES [facility] [place] [address] * Surgical Pathology Report (11/09/2019 11:10 AM EST) FINAL DIAGNOSIS (AP) [id number] ? Location: 4T; EA13; A The signing [...] Brown MD Verified: ??11/10/2019 ?Pathologist Performed at: ??-[facility] Dept. of [place]ology, [place], [place] CLINICAL INFORMATION Specimen Submitted: A - [...] labeled E1. ??elisa 11/10/2019 4:[address] [facility] GI Biopsy 11/09/2019 11:1 0 AM EST 11/09/2019 11:10 AM EST GI Biopsy 11/09/2019 11:1 0 AM EST 11/09/2019 11:10 AM EST GI Biopsy 11/09/2019 11:1 0 AM EST 11/09/2019 11:10 AM EST GI Biopsy 11/09/2019 11:1 0 AM EST 11/09/2019 11:10 AM EST GI Biopsy 11/09/2019 11:1 0 AM EST 11/09/2019 11:10 AM EST Froilan Sahni MD PATHOLOGY/CYTOLOG Y ORDERABLES Performing Organization Address City/State/[facility] Co de Phone Number [facility] [place] [address] * COLONOSCOPY (11/09/2019 9:34 AM EST) COLONOSCOPY [facility] Endoscopy ___ Procedure Date: 11/09/2019 9:34 AM ? Patient Name: Kim Funes ? Date of : 1960 ? Age: 59 ? Order #: [id number] ? Instrument Name: [id number] ? ___ Procedure: ? Colonoscopy Indications: ? High risk colon cancer surveillance: ? Ulcerative pancolitis of 8 (or more) ? years duration Patient Profile: ? This is a 59 year old female. This ? patient has ulcerative pancolitis, is ? taking adalimumab and is experiencing ? mild symptoms. Providers: ? Froilan Sahni MD, Avani [place] ? Sarah, FRANCESCA, Lawrence Natarajan Referring MD: ?Marcio Devlin, DO Medicines: ? Midazolam [...] mcg/mL multi-dose injection ONCE PRN, Starting on e 11/09/19 at 1053, Until 11/09/19 at 1508, [...] RN) documented in this encounter Care Teams Heel Buffer Relationship Specialty Start Date End Date Marcio Devlin DO [address] [place] [address] PCP - General Family Medicine 11/11/17 documented as of this encounter
--- OUTSIDE RECORDS SUMMARY | 2024-04-16 00:27 | XMS_ITS | Encounter Summary ---
[place] [address] Care Team Providers Care Nut Sorter Operator Name Role Phone Marcio Devlin DO Primary Care Provider [phone] Encounter Details Date Type Department Care Team (Latest Contact Info) Description 11/09/2019 1:00 PM EST Laboratory Appointment Lab 3L [place] [address] Ulcerative pancolitis without complication; Adalimumab [...] EDT Hospital Encounter Non-[place] [phone] Arrived 04/29/2024 9:50 AM [place] [address] Luis Alfredo Velazquez MD [facility] [place] [address] 04/29/2024 9:50 AM EDT Appointment MRI at [address] Luis Alfredo Velazquez MD [facility] [place] [address] 06/07/2024 2:30 PM EDT TH Visit (TeleHealth) Gastroenterology at [place] [address] Dajuan Rachel MD [facility] [place] [address] 07/02/2024 2:00 PM EDT Appointment Non-Invasive Cardiology Lab [address]1000 Luis Alfredo Velazquez MD [facility] [place] [address] 07/02/2024 4:00 PM EDT Office Visit Cardiology at [place] [phone] Mars Green PA [facility] [place] [address] 07/02/2024 4:40 PM EDT Office Visit Cardiology at [address]1000 Luis Alfredo Velazquez MD [facility] [place] [address] documented as of this encounter Procedures Procedure [...] 1:19 PM EST) Neutrophils % 63.2 % [facility] Neutr Abs (ANC) 4.44 1.70 - 6.10 x10(3)/mcL [facility] Lymphocytes % 26.1 % [facility] Lymphocytes Abs 1.8 0.9 - 3.2 x10(3)/[facility] Monocytes % 8.9 % [facility] Monocyte Abs 0.6 0.3 - 0.9 x10(3)/[facility] Eosinophils % 1.1 % [facility] Eosinophils Abs 0.1 0.0 - 0.4 x10(3)/[facility] Basophils % 0.4 % [facility] Basophils Abs 0.0 0.0 - 0.1 x10(3)/[facility] Immature Gran % 0.30 % [facility] Comment: Immature granulocytes(IG's)percentage and absolute count will include metamyelocytes, myelocytes, and promyelocytes. Blood smears from CBCs yielding IG's will be scanned manually for concordance. If this scan disagrees with the automated IG or if promyelocytes are noted, a manual differential will be performed. Melanie Gran Abs 0.02 0.00 - 0.04 x10(3)/[facility] Blood specimen (specimen) 11/09/2019 1:19 PM EST 11/09/2019 1:30 PM EST Narrative Resulting Agency Comment Spec In Lab Froilan Sahni MD HEMATOLOGY ORDERA BLES Performing Organization Address City/State/[facility] Co de Phone Number [facility] [place] [address] * Hemogram (11/09/2019 1:19 PM EST) WBC 7.0 4.0 - 9.5 x10(3)/[facility] RBC 4.31 4.00 - 5.21 x10(6)/[facility] Hemoglobin 12.9 11.7 - 15.5 gm/dL [facility] Hematocrit 40.2 35.7 - 45.8 % [facility] MCV 93.3 82.6 - 94.4 fL [facility] MCH 29.9 27.1 - 32.0 pg [facility] MCHC 32.1 31.7 - 35.0 gm/dL [facility] Platelets 241 145 - 357 x10(3)/[facility] RDWSD 45.3 37.0 - 46.0 fL [facility] RDWCV 13.2 11.5 - 14.1 % [facility] MPV 10.1 7.6 - 12.9 fL [facility] nRBC % Auto 0.0 % [facility] nRBC Abs Auto 0.000 0.000 - 0.000 x10(3)/[facility] Blood specimen (specimen) 11/09/2019 1:19 PM EST 11/09/2019 1:30 PM EST Narrative Resulting Agency Comment Spec In Lab Froilan Sahni MD HEMATOLOGY ORDERA BLES Performing Organization Address City/[facility]/ZIP Co de Phone Number [facility] [place] [address] * (ABNORMAL) CRP, acute inflammation (11/09/2019 1:19 PM EST) Pathologist [facility] CRP 5.4(H) <=4.9 mg/L [facility] Blood specimen (specimen) 11/09/2019 1:19 PM EST 11/09/2019 1:30 PM EST Narrative Resulting Agency Comment Spec In Lab Froilan Sahni MD CHEMISTRY ORDERAB LES Performing Organization Address City/[facility]/ZIP Co de Phone Number [facility] [place] [address] * Comprehensive metabolic panel (non-fasting) (11/09/2019 1:19 PM EST) Glucose Lvl 124 65 - 199 mg/dL [facility] Comment:Diabetes: >=200 mg/d L plus symptoms BUN 8 8 - 18 mg/dL [facility] Creatinine 0.80 0.70 - 1.20 mg/dL [facility] Sodium 145 135 - 145 mmol/L [facility] Potassium 3.7 3.5 - 5.0 mmol/L [facility] Comment: Please note: ??Patients with WBC >100,000 may have falsely elevated Potassium levels. ??For accurate Potassium quantification in these patients send serum separator tube (gold top) for subsequent determinations. ??Contact the Clinical Chemistry Laboratory if there are any questions. Chloride 105 98 - 107 mmol/L [facility] CO2 27 22 - 31 mmol/L [facility] Anion Gap 13 5 - 15 mmol/L [facility] Calcium 9.5 8.5 - 10.5 mg/dL [facility] Total Protein 7.9 6.1 - 8.0 gm/dL [facility] Albumin 4.0 3.2 - 5.2 gm/dL [facility] AST 19 0 - 30 unit/L [facility] ALT 12 0 - 30 unit/L [facility] Alk Phos 82 35 - 105 unit/L [facility] Total Bilirubin 0.4 0.2 - 1.3 mg/dL [facility] Estimated GFR 81 >=60 mL/min/1. 73 m?? [facility] Comment: The eGFR was calculated using the CKD-EPI equation. As with all creatinine based estimates of kidney function, eGFR values calculated with the CKD-EPI equation are not accurate in patients with acute kidney failure, extremes of body mass or the acutely ill. http://[employer]Books/[facility] eGFR 94 >=60 mL/min/1. 73 m?? [facility] Comment: The eGFR was calculated using the CKD-EPI equation. As with all creatinine based estimates of kidney function, eGFR values calculated with the CKD-EPI equation are not accurate in patients with acute kidney failure, extremes of body mass or the acutely ill. http://FreshBooks/[facility] Blood specimen (specimen) 11/09/2019 1:19 PM EST 11/09/2019 1:30 PM EST Narrative Resulting Agency Comment Spec In Lab Froilan Sahni MD CHEMISTRY ORDERAB LES [facility] [place] [address] * QuantiFERON-TB Gold (11/09/2019 1:19 PM EST) QFT Nil 0.040 IU/mL [facility] QFT TB Ag1-Nil 0.010 IU/mL [facility] QFT TB Ag2-Nil 0.100 IU/mL [facility] QFT Mitogen-Nil >10.000 IU/mL [facility] Quantiferon TB Negative Negative [facility] Quantiferon TB Interp M. tuberculosis [...] affect immune function, or other immunological factors. [facility] Comment: The performance of the [...] MD CHEMISTRY ORDERAB LES Performing Organization Address [facility] Co de Phone Number [facility] [place] [address] * Hepatitis B Core Antibody, Total (11/09/2019 1:19 PM EST) Hep B Core Ab Negative Negative [facility] Blood specimen (specimen) 11/09/2019 1:19 PM EST 11/09/2019 1:30 PM EST Narrative Resulting Agency Comment Spec In Lab Froilan Sahni MD CHEMISTRY ORDERAB LES Performing Organization Address [facility] Co de Phone Number [facility] [address] * Hepatitis B Surface Antibody (11/09/2019 1:19 PM EST) HepB Surface Ab Quant 61.4 IU/L [facility] Comment: HepB Surface Ab Quant: Unvaccinated: < 8.5 IU/L Vaccinated: > 11.5 IU/L HepB Surface Ab Positive [facility] Comment: Patient is considered to be immune to HBV infection. Expected Results: Vaccinated: Positive Unvaccinated: Negative Blood specimen (specimen) 11/09/2019 1:19 PM EST 11/09/2019 1:30 PM EST Narrative Resulting Agency Comment Spec In Lab Froilan Sahni MD IMMUNOLOGY ORDERA BLES Performing Organization Address [facility] Co de Phone Number [facility] [address] * Hepatitis B Surface Antigen (11/09/2019 1:19 PM EST) HepB Surface Ag Negative Negative [facility] Blood specimen (specimen) 11/09/2019 1:19 PM EST 11/09/2019 1:30 PM EST Narrative Resulting Agency Comment Spec In Lab Froilan Sahni MD CHEMISTRY ORDERAB LES Performing Organization Address [facility] de Phone Number [facility] [place] [address] * Adalimumab Quant with Reflex to Antibody (11/09/2019 1:19 PM EST) Pathologist [facility] Adalimumab Level 6.0 mcg/mL [facility] Comment: For clinical assessment of response to therapy, adalimumab should be measured at trough. When adalimumab trough concentrations are greater than 5.0 mcg/mL, clinically relevant oawtnngjmt-ps-tbbbzntyij are unlikely and reflex testing will not be performed. REFERENCE VALUE Limit of Quantitation = 0.8 mcg/mL ADDITIONAL INFORMATION This test was developed and its performance characteristics determined by [facility] in a manner consistent with CLIA requirements. This test has not been cleared or approved by the U.S. Food and Drug Administration. Test Performed by: [facility] - [address] [address] Spike Maker: Oc Lorenzo M.D. Ph.D.; CLIA# [id number] Blood specimen (specimen) 11/09/2019 1:19 PM EST 11/10/2019 8:27 AM EST Narrative Resulting Agency Comment Spec In Lab Froilan Sahni MD CHEMISTRY ORDERAB LES Performing Organization Address [facility] Co de Phone [place] [address] documented in this encounter Visit Diagnoses Diagnosis Ulcerative pancolitis without complication Adalimumab (Humira) long-term use Encounter for long-term (current) use of other medications documented in this encounter Care Teams Nut Sorter Operator Relationship Specialty Start Date End Date Marcio Devlin DO [address] [place] [address] PCP - General Family Medicine 11/11/17 documented as of this encounter
--- OUTSIDE RECORDS SUMMARY | 2024-04-16 00:27 | XMS_ITS | Encounter Summary ---
Author Organization [facility] Address [facility] [place] [address] Care Team Providers Care Auto Air Conditioning Installer Name Role Phone Marcio Devlin DO Primary Care Provider [phone] Encounter Details Date Type Department Care Team (Late st Contact Info) Description 02/26/2019 Ref[place] [phone] Nico Campbell [facility] [place] [address] Social History Tobacco Use Types Packs/Day Years [...] AM EDT Hospital Encounter Non-[place] [address] Arrived 04/29/2024 9:50 AM EDT Appointment MRI at [place] [phone] Luis Alfredo Velazquez MD [facility] [place] [address] 04/29/2024 9:50 AM EDT Appointment MRI at [address]1000 Luis Alfredo Velazquez MD [facility] [place] [address] 06/07/2024 2:30 PM EDT TH Visit (TeleHealth) [place] [address] Dajuan Rachel MD [facility] [place] [address] 07/02/2024 2:00 PM EDT Appointment Non-Invasive Cardiology Lab [address]1000 Luis Alfredo Velazquez MD [facility] [place] [address] 07/02/2024 4:00 PM EDT Office Visit Cardiology at [address]1000 [place] [facility] [place] [place] [address] 07/02/2024 4:40 PM EDT Office Visit Cardiology at [place] [phone] Luis Alfredo Velazquez MD [facility] [place] [address] documented as of this encounter Visit Diagnoses Not on filedocumented in this encounter Care Teams Auto Air Conditioning Installer Relationship Specialty Start Date End Date Marcio Devlin DO [address] [place] [address] PCP - General Family Medicine 11/11/17 documented as of this encounter
--- OUTSIDE RECORDS SUMMARY | 2024-04-16 00:27 | XMS_ITS | Encounter Summary ---
Author Organization [facility] [address] Care Team Providers Care Yard Switcher Name Role Phone Marcio Devlin DO Primary Care Provider [phone] Encounter Details Date Type Department Care Team (Late st Contact Info) Description 09/30/2019 Specialty [place] [address] Juan Carlos Joseph Social History [...] AM EDT Hospital Encounter Non-[place] [phone] Arrived 04/29/2024 9:50 [place] [address] Luis Alfredo Velazquez MD [facility] [place] [address] 04/29/2024 9:50 AM EDT Appointment MRI at [address]1000 Luis Alfredo Velazquez MD [facility] [place] [address] 06/07/2024 2:30 PM EDT TH Visit (TeleHealth) Gastroenterology at [place] [address] Dajuan Rachel MD [facility] [place] [address] 07/02/2024 2:00 PM EDT Appointment Non-Invasive [place] [address] Luis Alfredo Velazquez MD [facility] [place] [address] 07/02/2024 4:00 PM EDT Office [place] [address] [place] [facility] [address] 07/02/2024 4:40 PM EDT Office Visit Cardiology at [address]1000 Luis Alfredo Velazquez MD [facility] [place] [address] documented as of this encounter Visit Diagnoses Not on filedocumented in this encounter Care Teams Yard Switcher Relationship Specialty Start Date End Date Marcio Devlin DO [address] [place] [address] PCP - General Family Medicine 11/11/17 documented as of this encounter
--- OUTSIDE RECORDS SUMMARY | 2024-04-16 00:27 | XMS_ITS | Encounter Summary ---
Author Organization [facility] [place] [address] Care Team Providers Care Manager Security Name Role Phone Marcio Devlin DO Primary Care Provider [phone] Reason for Visit * Reason Onset Date Comments Reminder Appointment 03/27/2020 Encounter Details Date Type Department Care Team (Late st Contact Info) Description 03/27/2020 Telephone [place] [phone] Elisha Hall CMA GASTROENTEROLOGY DEPT Reminder Appointment [...] AM EDT Hospital Encounter Non-[place] [address] Arrived 04/29/2024 9:50 AM EDT Appointment MRI at [place] [address] Luis Alfredo Velazquez MD [facility] [place] [address] 04/29/2024 9:50 AM EDT Appointment MRI at [address]1000 Luis Alfredo Velazquez MD [facility] [place] [address] 06/07/2024 2:30 PM EDT TH Visit (TeleHealth) Gastroenterology at [place] [address] Dajuan Rachel MD [facility] [place] [address] 07/02/2024 2:00 PM EDT Appointment Non-[place] [address] Luis Alfredo Velazquez MD [facility] [place] [address] 07/02/2024 4:00 PM EDT Office [place] [address] Mars Green PA [facility] [place] [address] 07/02/2024 4:40 PM EDT Office Visit Cardiology at [address] [address] Luis Alfredo Velazquez MD [facility] [place] [address] documented as of this encounter Visit Diagnoses Not on filedocumented in this encounter Care Teams Manager Security Relationship Specialty Start Date End Date Marcio Devlin DO [address] [place] [address] PCP - General Family Medicine 11/11/17 documented as of this encounter
--- OUTSIDE RECORDS SUMMARY | 2024-04-16 00:27 | XMS_ITS | Encounter Summary ---
Author Organization [facility] [place] [address] Care Team Providers Care College Hire Name Role Phone Marcio Devlin DO Primary Care Provider Encounter Details Date Type Department Care Team (Late st Contact Info) Description 10/15/2019 Telephone [place] [address] Karen Gupta Social History Tobacco Use Types [...] - 10/15/2019 1:14 PM EST Kim Funes [id number] Diagnosis/Indication: COLO 1. Have you ever had [...] to patient: You must have a responsible green party who will drive you to your procedure, stay [place] for the entire duration of your procedure, and drive you home from your procedure? Height: 5'6 Weight: 183 BMI: 29.5 Age:59 y.o. documented in this encounter Plan of Treatment Upcoming Encounters Date Type Department Care Team (Late st Contact Info) Description 04/19/2024 10:00 AM EDT Hospital Encounter Non-Invasive [place] [address] Arrived 04/29/2024 9:50 AM [place] [address] Luis Alfredo Velazquez MD [facility] [place] [address] 04/29/2024 9:50 AM [place] [address] Luis Alfredo Velazquez MD [facility] [place] [address] 06/07/2024 2:30 PM EDT TH Visit (TeleHealth) [place] [address] Dajuan Rachel MD [facility] [place] [address] 07/02/2024 2:00 PM EDT Appointment Non-Invasive Cardiology Lab [address]1000 Luis Alfredo Velazquez MD [facility] [place] [address] 07/02/2024 4:00 PM EDT Office [place] [address] [place] PA [facility] [place] [address] 07/02/2024 4:40 PM EDT Office Visit Cardiology at [place] [phone] Luis Alfredo Velazquez MD [facility] [place] [address] documented as of this encounter Visit Diagnoses Not on filedocumented in this encounter Care Teams College Hire Relationship Specialty Start Date End Date Marcio Devlin DO [address] [place] [address] PCP - General Family Medicine 11/11/17 documented as of this encounter
--- OUTSIDE RECORDS SUMMARY | 2024-04-16 00:27 | XMS_ITS | Encounter Summary ---
Author Organization [facility] [place] [address] Care Team Providers Care Maintenance Technician Name Role Phone Marcio Devlin DO Primary Care Provider [phone] Encounter Details Date Type Department Care Team (Latest Contact Info) Description 03/27/2020 9:00 AM EDT TH Visit (TeleHealth) [place] [address] Clau Cruz MD [facility] [place] [address] WRIGHT (nonalcoholic steatohepatitis) Social History Tobacco Use [...] - NEW PATIENT VISIT Chief Complaint: Kim Perez is a 59 y.o. patient referred for [...] mouth daily. ??? SUMAtriptan (IMITREX) 20 mg/actuation [place], Non-Aerosol 1 spray as needed. ??? ferrous [...] by interface; created by interface; Colonoscopy, Biopsy (32026) (01/02/2011); Colonoscopy, Remdonna Palmer, Snare (69812) (01/02/2011); Colonoscopy, Biopsy (02673) (N/A, 03/04/2017); Colonoscopy, Remv Agustínn, Snare (29930) (N/A, 03/04/2017); salpingectomy; orthopedic surgery; Vag Hyst, Rmv Tube/Ovary (02689) (N/A, 03/10/2018); Combined Ant/Post Colporrhaphy (17628) (N/A, 03/10/2018); Sling Oper Stres Incontinence (66544) (N/A, 03/10/2018); Revaginal Prolapse, Uterosacral (11772) (N/A, 03/10/2018); XR Fluoro Guided Joint Injection Large Right (Right, 03/09/2019); Colonoscopy, Diagnostic (58253) (N/A, 11/09/2019); and Colonoscopy, Biopsy (69731) (N/A, 11/09/2019). Family History: family history includes [...] telemedicine visit. The patient was located in [place] at the time of their visit. Clau Cruz [place] [facility] [place] [address] documented in this encounter Plan of Treatment Upcoming Encounters Date Type Department Care Team (Late st Contact Info) Description 04/19/2024 10:00 AM EDT Hospital Encounter Non-[place] [address] Arrived 04/29/2024 9:50 AM [place] [address] Luis Alfredo Velazquez MD [facility] [place] [address] 04/29/2024 9:50 AM [place] [address] Luis Alfredo Velazquez MD [facility] [place] [address] 06/07/2024 2:30 PM EDT TH Visit (TeleHealth) Gastroenterology at [place] [phone] Dajuan Rachel MD [facility] [place] [address] 07/02/2024 2:00 PM EDT Appointment Non-Invasive Cardiology Lab [place] [phone] Luis Alfredo Velazquez MD [facility] [place] [address] 07/02/2024 4:00 PM EDT Office Visit Cardiology at [place] [phone] [place] PA [facility] [place] [address] 07/02/2024 4:40 PM EDT Office Visit Cardiology at [address] [phone] Luis Alfredo Velazquez MD [facility] [address] documented as of this encounter Visit Diagnoses Diagnosis WRIGHT (nonalcoholic steatohepatitis) Other chronic nonalcoholic liver disease documented in this encounter Care Teams Maintenance Technician Relationship Specialty Start Date End Date Marcio Devlin DO [address] [place] [address] PCP - General Family Medicine 11/11/17 documented as of this encounter
--- OUTSIDE RECORDS SUMMARY | 2024-04-16 00:27 | XMS_ITS | Encounter Summary ---
Author Organization [facility] Address [facility] [place] [address] Care Team Providers Care Browning Processor Name Role Phone Marcio Devlin DO Primary Care Provider [phone] Encounter Details Date Type Department Care Team (Latest Contact Info) Description 02/23/2019 6:48 AM EDT - 02/23/2019 11:59 PM EDT Hospital Encounter XRay at [address] [place] [address] Glenn Choe MD [facility] [place] [address] Right hip pain; Hx of total hip [...] by mouth daily. SUMAtriptan (IMITREX) 20 mg/actuation [place], Non-Aerosol 1 spray as needed. 11/03/2017 metFORMIN [...] AM EDT Hospital Encounter Non-Invasive [place] [address] Arrived 04/29/2024 9:50 [place] [address] Luis Alfredo Velazquez MD [facility] [place] [place] [address] 04/29/2024 9:50 [place] [address] Luis Alfredo Velazquez MD [facility] [place] [address] 06/07/2024 2:30 PM EDT TH Visit (TeleHealth) [place] [address] Dajuan Rachel MD [facility] [place] [address] 07/02/2024 2:00 PM EDT Appointment Non-Invasive [place] [address] Luis Alfredo Velazquez MD [facility] [place] [address] 07/02/2024 4:00 PM EDT Office Visit Cardiology at [address] [address] Mars Green PA [facility] [place] [address] 07/02/2024 4:40 PM EDT Office Visit Cardiology at [address] [address] Luis Alfredo Velazquez MD [facility] [place] [address] documented as of this encounter Procedures Procedure [...] the number below. ? Electronically signed by: Jordon Mondragon [facility] ([phone]), at 02/23/2019 7:35 AM Narrative 02/23/2019 7:35 AM EDT EXAMINATION: XR [...] this report, please contact the number below. Electronically signed by: Jordon Mondragon [facility]([phone]), at 02/23/2019 7:35 AM Glenn Choe MD IMG DX ORDERABLES documented in this encounter Visit Diagnoses Diagnosis Right hip pain Pain in joint, pelvic region and thigh Hx of total hip arthroplasty, left documented in this encounter Care Teams Browning Processor Relationship Specialty Start Date End Date Marcio Devlin DO [address] [place] [address] PCP - General Family Medicine 11/11/17 documented as of this encounter
--- OUTSIDE RECORDS SUMMARY | 2024-04-16 00:27 | XMS_ITS | Encounter Summary ---
Author Organization [facility] [address] Care Team Providers Care Photograph Mounter Name Role Phone Marcio Devlin DO Primary Care Provider [phone] Reason for Visit * Reason Comments Follow-up Encounter Details Date Type Department Care Team (Late st Contact Info) Description 06/01/2019 2:30 PM EDT Office [place] [address] Gabe Fong MD [facility] [place] [place] [address] High risk medication use; Inflammatory arthropathy; Morning [...] Rheumatology Follow-up Note PCP: Marcio Devlin DO [address] [facility] [address] [place] [address] Rheumatological History: 1. UC associated Ankylosing Spondylitis [...] -Continue current meds: 1) Humira 40 mg [id number] 2) SZS 1000 mg BID -Check labs [...] AM EDT Hospital Encounter Non-[place] [address] Arrived 04/29/2024 9:50 AM EDT [place] [phone] Luis Alfredo Velazquez MD [facility] [place] [address] 04/29/2024 9:50 [place] [address] Luis Alfredo Velazquez MD [facility] [place] [address] 06/07/2024 2:30 PM EDT TH Visit (TeleHealth) Gastroenterology at [address] Dajuan Rachel MD [facility] [place] [address] 07/02/2024 2:00 PM EDT Appointment Non-Invasive Cardiology Lab [place] [phone] Luis Alfredo Velazquez MD [facility] [place] [place] [address] 07/02/2024 4:00 PM EDT Office Visit Cardiology at [place] [phone] Mars Green PA [facility] [place] [address] 07/02/2024 4:40 PM EDT Office Visit Cardiology at [place] [phone] Luis Alfredo Velazquez MD [facility] [place] [address] documented as of this encounter Procedures Procedure [...] 3:22 PM EDT) Neutrophils % 51.6 % [facility] Neutr Abs (ANC) 5.62 1.70 - 6.10 x10(3)/mc L [facility] Lymphocytes % 34.7 % [facility] Lymphocytes Abs 3.8(H) 0.9 - 3.2 x10(3)/mc L [facility] Monocytes % 9.9 % [facility] Monocyte Abs 1.1(H) 0.3 - 0.9 x10(3)/mc L [facility] Eosinophils % 3.0 % [facility] Eosinophils Abs 0.3 0.0 - 0.4 x10(3)/[facility] Basophils % 0.5 % [facility] Basophils Abs 0.0 0.0 - 0.1 x10(3)/[facility] Immature Gran % 0.30 % [facility] Comment: Immature granulocytes(IG's)percentage and absolute count will include metamyelocytes, myelocytes, and promyelocytes. Blood smears from CBCs yielding IG's will be scanned manually for concordance. If this scan disagrees with the automated IG or if promyelocytes are noted, a manual differential will be performed. Melanie Gran Abs 0.03 0.00 - 0.04 x10(3)/[facility] Blood specimen (specimen) 06/01/2019 3:22 PM EDT 06/01/2019 3:46 PM EDT Narrative Resulting Agency Comment Spec In Lab Gabe Fong MD HEMATOLOGY ORDERABLE S Performing Organization Address City/State/[facility] Co de Phone Number [facility] [place] [address] * (ABNORMAL) Hemogram (06/01/2019 3:22 PM EDT) WBC 10.9(H) 4.0 - 9.5 x10(3)/[facility] LAB[facility] RBC 4.70 4.00 - 5.21 x10(6)/[facility] Hemoglobin 14.3 11.7 - 15.5 gm/dL [facility] Hematocrit 44.1 35.7 - 45.8 % [facility] MCV 93.8 82.6 - 94.4 fL [facility] MCH 30.4 27.1 - 32.0 pg [facility] MCHC 32.4 31.7 - 35.0 gm/dL [facility] Platelets 238 145 - 357 x10(3)/[facility] RDWSD 46.2(H) 37.0 - 46.0 fL [facility] RDWCV 13.3 11.5 - 14.1 % [facility] MPV 10.8 7.6 - 12.9 fL [facility] nRBC % Auto 0.0 % [facility] nRBC Abs Auto 0.000 0.000 - 0.000 x10(3)/mcL [facility] Blood specimen (specimen) 06/01/2019 3:22 PM EDT 06/01/2019 3:46 PM EDT Narrative Resulting Agency Comment Spec In Lab Gabe Fong MD HEMATOLOGY ORDERABLE S Performing Organization Address [facility] Co de Phone Number [facility] [place] [address] * (ABNORMAL) Hepatic Function Panel (06/01/2019 3:22 PM EDT) Total Protein 8.4(H) 6.1 - 8.0 gm/dL [facility] Albumin 4.1 3.2 - 5.2 gm/dL [facility] AST 19 0 - 30 unit/L [facility] ALT 15 0 - 30 unit/L [facility] Alk Phos 91 35 - 105 unit/L [facility] Total Bilirubin 0.2 0.2 - 1.3 mg/dL [facility] Bili, Direct <0.1 0.0 - 0.3 mg/dL [facility] Blood specimen (specimen) 06/01/2019 3:22 PM EDT 06/01/2019 3:46 PM EDT Narrative Resulting Agency Comment Spec In Lab Gabe Fong MD CHEMISTRY ORDERABLES Performing Organization Address [facility] Co de Phone Number [facility] [place] [address] * (ABNORMAL) CRP, acute inflammation (06/01/2019 3:22 PM EDT) CRP 8.4(H) <=4.9 mg/L [facility] Blood specimen (specimen) 06/01/2019 3:22 PM EDT 06/01/2019 3:46 PM EDT Narrative Resulting Agency Comment Spec In Lab Gabe Fong MD CHEMISTRY ORDERABLES Performing Organization Address [facility] Co de Phone Number [facility] [place] [address] * Creatinine (06/01/2019 3:22 PM EDT) Creatinine 0.79 0.70 - 1.20 mg/dL [facility] Estimated GFR 83 >=60 mL/min/1.7 3 m?? [facility] Comment: The eGFR was calculated using the CKD-EPI equation. As with all creatinine based estimates of kidney function, eGFR values calculated with the CKD-EPI equation are not accurate in patients with acute kidney failure, extremes of body mass or the acutely ill. http://nChannel/DHMCnkf eGFR 96 >=60 mL/min/1.7 3 m?? [facility] Comment: The eGFR was calculated using the CKD-EPI equation. As with all creatinine based estimates of kidney function, eGFR values calculated with the CKD-EPI equation are not accurate in patients with acute kidney failure, extremes of body mass or the acutely ill. http://nChannel/DHMCnkf Blood specimen (specimen) 06/01/2019 3:22 PM EDT 06/01/2019 3:46 PM EDT Narrative Resulting Agency Comment Spec In Lab Gabe Fong MD CHEMISTRY ORDERABLES Performing Organization Address [facility] Co de Phone Number [facility] [place] [address] * Sedimentation rate (06/01/2019 3:22 PM EDT) Sed Rate 11 0 - 20 mm/hr [facility] Blood specimen (specimen) 06/01/2019 3:22 PM EDT 06/01/2019 3:46 PM EDT Narrative Resulting Agency Comment Spec In Lab Gabe Fong MD HEMATOLOGY ORDERABLE S Performing Organization Address City/[facility]/ZIP [place] [address] * Uric acid (06/01/2019 3:22 PM EDT) Uric Acid 6.1 2.5 - 6.5 mg/dL [facility] Blood specimen (specimen) 06/01/2019 3:22 PM EDT 06/01/2019 3:46 PM EDT Narrative Resulting Agency Comment Spec In Lab Gabe Fong MD CHEMISTRY ORDERABLES Performing Organization Address [facility] Co de Phone Number [facility] [place] [address] documented in this encounter Visit Diagnoses Diagnosis High risk medication use Encounter for long-term (current) use of other medications Inflammatory arthropathy Arthropathy, unspecified, site unspecified Morning joint stiffness Stiffness of joint, not elsewhere classified, unspecified site Ankylosing spondylitis, unspecified site of spine documented in this encounter Care Teams Photograph Mounter Relationship Specialty Start Date End Date Marcio Devlin DO [address] [place] [address] PCP - General Family Medicine 11/11/17 documented as of this encounter
--- OUTSIDE RECORDS SUMMARY | 2024-04-16 00:27 | XMS_ITS | Encounter Summary ---
[place] [address] Care Team Providers Care Capsule Inspector Name Role Phone Marcio Devlin DO Primary Care Provider [phone] Encounter Details Date Type Department Care Team (Late st Contact Info) Description 11/15/2019 Specialty [place] [address] Berenice Novak, [facility] Social History Tobacco Use Types Packs/Day Years [...] AM EDT Hospital Encounter Non-[place] [address] Arrived 04/29/2024 9:50 AM [place] [address] Luis Alfredo Velazquez MD [facility] [place] [address] 04/29/2024 9:50 AM EDT Appointment MRI at [place] [address] Luis Alfredo Velazquez MD [facility] [place] [address] 06/07/2024 2:30 PM EDT TH Visit (TeleHealth) Gastroenterology at [place] [address] Dajuan Rachel MD [facility] [place] [address] 07/02/2024 2:00 PM EDT Appointment Non-Invasive Cardiology Lab [place] [address] Luis Alfredo Velazquez MD [facility] [place] [address] 07/02/2024 4:00 PM EDT Office Visit Cardiology at [place] [address] [address] [place] [facility] [place] [address] 07/02/2024 4:40 PM EDT Office Visit Cardiology at [place] [address] Luis Alfredo Velazquez MD [facility] [place] [address] documented as of this encounter Visit Diagnoses Not on filedocumented in this encounter Care Teams Capsule Inspector Relationship Specialty Start Date End Date Marcio Devlin DO [address] [place] [address] PCP - General Family Medicine 11/11/17 documented as of this encounter
--- OUTSIDE RECORDS SUMMARY | 2024-04-16 00:27 | XMS_ITS | Encounter Summary ---
Author Organization [facility] [place] [address] Care Team Providers Care Agricultural Science Professor Name Role Phone Marcio Devlin DO Primary Care Provider [phone] Encounter Details Date Type Department Care Team (Late st Contact Info) Description 05/31/2019 Specialty [place] [address] Juan Carlos Joseph Social History [...] AM EDT Hospital Encounter Non-[place] [address] Arrived 04/29/2024 9:50 [place] [address] Luis Alfredo Velazquez MD [facility] [place] [address] 04/29/2024 9:50 AM EDT Appointment MRI at [address] Luis Alfredo Velazquez MD [facility] [place] [place] [address] 06/07/2024 2:30 PM EDT TH Visit (TeleHealth) Gastroenterology at [place] [address] Dajuan Rachel MD [facility] [address] 07/02/2024 2:00 PM EDT Appointment [place] [address] Luis Alfredo Velazquez MD [facility] [place] [address] 07/02/2024 4:00 PM EDT Office [place] [address] Mars Green PA [facility] [place] [address] 07/02/2024 4:40 PM EDT Office Visit Cardiology at [address] Luis Alfredo Velazquez MD [facility] [place] [address] documented as of this encounter Visit Diagnoses Not on filedocumented in this encounter Care Teams Agricultural Science Professor Relationship Specialty Start Date End Date Marcio Devlin DO [address] [place] [address] PCP - General Family Medicine 11/11/17 documented as of this encounter
--- OUTSIDE RECORDS SUMMARY | 2024-04-16 00:27 | XMS_ITS | Encounter Summary ---
Author Organization [facility] [address] Care Team Providers Care Verification Rep Name Role Phone Marcio Devlin DO Primary Care Provider [phone] Encounter Details Date Type Department Care Team (Late st Contact Info) Description 11/09/2019 9:29 AM EST - 11/09/2019 1:03 PM EST Hospital Encounter [place] [address] Froilan Sahni MD [facility] [place] [address] Discharge Disposition: Home Social History Tobacco Use [...] occurs, please contact your Doctor. Please call [phone] before 8pm Mon-Fri with problems, questions or concerns. If you call after 8pm or on weekends, call the Hospital at [phone] and ask to speak to the Beauty Advisor coke oven mason and the evaporator operator will contact that person for you. When should you call for help? Call [phone] anytime you think you may need emergency [...] Visit Summary and more online at [email or web address] If you would like to provide [...] cost to you. Content Version: 12.2 ?? [id number] [employer]. Care instructions adapted under license by [facility]. If you have questions about a medical condition or this instruction, always ask your healthcare professional. [employer] disclaims any warranty or liability for [...] by mouth daily. SUMAtriptan (IMITREX) 20 mg/actuation [place], Non-Aerosol 1 spray as needed. 11/03/2017 metFORMIN [...] complication. Informed Consent signed by patient (or loss prevention representative). documented in this encounter Plan of Treatment Upcoming Encounters Date Type Department Care Team (Late st Contact Info) Description 04/19/2024 10:00 AM EDT Hospital Encounter Non-Invasive Cardiology Lab [place] [address] Arrived 04/29/2024 9:50 AM EDT Appointment MRI at [place] [address] Luis Alfredo Velazquez MD [facility] [place] [address] 04/29/2024 9:50 AM EDT Appointment MRI at [place] [address] Luis Alfredo Velazquez MD [facility] [place] [address] 06/07/2024 2:30 PM EDT TH Visit (TeleHealth) Gastroenterology at [address] Dajuan Rachel MD [facility] [place] [address] 07/02/2024 2:00 PM EDT Appointment Non-Invasive Cardiology Lab [place] [address] Luis Alfredo Velazquez MD [facility] [place] [address] 07/02/2024 4:00 PM EDT Office Visit Cardiology at [place] [address] [place], [place] [facility] [place] [address] 07/02/2024 4:40 PM EDT Office Visit Cardiology at [address] [address] Luis Alfredo Velazquez MD [facility] [place] [address] documented as of this encounter Procedures Procedure Name Priority Date/Time Associated Diagnosis Comments SPECIMEN TO PATHOLOGY Routine 11/09/2019 11:33 AM EST SPECIMEN TO PATHOLOGY Routine 11/09/2019 11:33 AM EST SPECIMEN TO PATHOLOGY Routine 11/09/2019 11:33 AM EST SPECIMEN TO PATHOLOGY Routine 11/09/2019 11:33 AM EST SPECIMEN TO PATHOLOGY Routine 11/09/2019 11:33 AM EST SURGICAL PATHOLOGY REPORT Routine 11/09/2019 11:10 AM EST Colonoscopy, Biopsy ([id number]) 11/09/2019 10:48 AM EST hx poylps- 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 ??Separate Pathology report to follow Froilan Sahni MD PATHOLOGY/CYTOLOG Y ORDERABLES [facility] [place] [address] * Specimen to Pathology (11/09/2019 11:33 AM EST) AP Specimen 11/09/2019 11:3 3 AM EST 11/09/2019 11:33 AM EST Narrative [facility] - 11/09/2019 11:33 AM EST Specimen requisition ordered. ??Separate Pathology report to follow Froilan Sahni MD PATHOLOGY/CYTOLOG Y ORDERABLES Performing Organization Address [facility] [place] [address] * Specimen to Pathology (11/09/2019 11:33 AM EST) AP Specimen 11/09/2019 11:3 3 AM EST 11/09/2019 11:33 AM EST Narrative [facility] - 11/09/2019 11:33 AM EST Specimen requisition ordered. ??Separate Pathology report to follow Froilan Sahni MD PATHOLOGY/CYTOLOG Y ORDERABLES Performing Organization Address [facility] [place] [address] * Specimen to Pathology (11/09/2019 11:33 AM EST) AP Specimen 11/09/2019 11:3 3 AM EST 11/09/2019 11:33 AM EST Narrative [facility] - 11/09/2019 11:33 AM EST Specimen requisition ordered. ??Separate Pathology report to follow Froilan Sahni MD PATHOLOGY/CYTOLOG Y ORDERABLES Performing Organization Address [facility] [place] [address] * Specimen to Pathology (11/09/2019 11:33 AM EST) AP Specimen 11/09/2019 11:3 3 AM EST 11/09/2019 11:33 AM EST Narrative [facility] - 11/09/2019 11:33 AM EST Specimen requisition ordered. ??Separate Pathology report to follow Froilan Sahni MD PATHOLOGY/CYTOLOG Y ORDERABLES [facility] [place] [address] * Surgical Pathology Report (11/09/2019 11:10 AM EST) FINAL DIAGNOSIS (AP) [id number] ? Location: 4T; EA13; A The signing [...] Brown MD Verified: ??11/10/2019 ?Pathologist Performed at: ??-[facility] Dept. of Pathology, [place], [place] CLINICAL INFORMATION Specimen Submitted: A - [...] labeled E1. ??elisa 11/10/2019 4:44 PM EST [facility] GI Biopsy 11/09/2019 11:1 0 AM [...] MD PATHOLOGY/CYTOLOG Y ORDERABLES Performing Organization Address City/State/[facility] Co de Phone Number [facility] [place] [address] * COLONOSCOPY (11/09/2019 9:34 AM EST) COLONOSCOPY [facility] Endoscopy ___ Procedure Date: 11/09/2019 9:34 AM ? Patient Name: Kim Funes ? Date of : 1960 ? Age: 59 ? Order #: [id number] ? Instrument Name: [id number] ? ___ Procedure: ? Colonoscopy Indications: ? [...] PRN, Starting on 11/09/19 at 1053, Until 2/25/20 at 1508, Intra-Operative (Intra-Procedure), Routine 1053 (Given [...] RN) documented in this encounter Care Teams Verification Rep Relationship Specialty Start Date End Date Marcio Devlin DO [address] [facility] [place] [address] PCP - General Family Medicine 11/11/17 documented as of this encounter
--- OUTSIDE RECORDS SUMMARY | 2024-04-16 00:27 | XMS_ITS | Encounter Summary ---
[place] [address] Care Team Providers Care Emr Implementation Specialist Name Role Phone Marcio Devlin DO Primary Care Provider Reason for Visit * Reason Comments Specialty Pharmacy Review Encounter Details Date Type Department Care Team (Late st Contact Info) Description 03/27/2020 Specialty [place] [address] Berenice Novak, [facility] Social History Tobacco Use Types [...] AM EDT Hospital Encounter Non-Invasive [place] [address] Arrived 04/29/2024 9:50 [place] [address] Luis Alfredo Velazquez MD [facility] [place] [address] 04/29/2024 9:50 AM EDT Appointment MRI at [place] [address] Luis Alfredo Velazquez MD [facility] [place] [address] 06/07/2024 2:30 PM EDT TH Visit (TeleHealth) Gastroenterology at [place] [address] Dajuan Rachel MD [facility] [place] [address] 07/02/2024 2:00 PM EDT Appointment Non-Invasive Cardiology Lab [place] [address] Luis Alfredo Velazquez MD [facility] [place] [place] [address] 07/02/2024 4:00 PM EDT Office Visit Cardiology at [place] [address] [address] PA [facility] [place] [address] 07/02/2024 4:40 PM EDT Office Visit Cardiology at [place] [address] Luis Alfredo Velazquez MD [facility] [place] [address] documented as of this encounter Visit Diagnoses Not on filedocumented in this encounter Care Teams Emr Implementation Specialist Relationship Specialty Start Date End Date Marcio Devlin DO [address] [place] [address] PCP - General Family Medicine 11/11/17 documented as of this encounter
--- OUTSIDE RECORDS SUMMARY | 2024-04-16 00:27 | XMS_ITS | Encounter Summary ---
Author Organization [facility] [place] [address] Care Team Providers Care Oxyacetylene Welder Name Role Phone Marcio Devlin DO Primary Care Provider [phone] Encounter Details Date Type Department Care Team (Late st Contact Info) Description 07/13/2019 Telephone [place] [address] Gabe Fong MD [facility] [place] [address] Social History Tobacco Use Types Packs/Day Years [...] AM EDT Hospital Encounter Non-Invasive Cardiology Lab [place] [phone] Arrived 04/29/2024 9:50 AM EDT Appointment MRI at [address] Luis Alfredo Velazquez MD [facility] [place] [address] 04/29/2024 9:50 AM EDT Appointment MRI at [place] [phone] Luis Alfredo Velazquez MD [facility] [place] [address] 06/07/2024 2:30 PM EDT TH Visit (TeleHealth) Gastroenterology at [address] Dajuan Rachel MD [facility] [place] [address] 07/02/2024 2:00 PM EDT Appointment Non-Invasive [place] [address] Luis Alfredo Velazquez MD [facility] [place] [address] 07/02/2024 4:00 PM EDT Office [place] [address] Mars Green PA [facility] [place] [address] 07/02/2024 4:40 PM EDT Office Visit Cardiology at [place] [phone] Luis Alfredo Velazquez MD [facility] [place] [address] documented as of this encounter Visit Diagnoses Not on filedocumented in this encounter Care Teams Oxyacetylene Welder Relationship Specialty Start Date End Date Marcio Devlin DO [address] [place] [address] PCP - General Family Medicine 11/11/17 documented as of this encounter
--- OUTSIDE RECORDS SUMMARY | 2024-04-16 00:27 | XMS_ITS | Encounter Summary ---
Author Organization [facility] [address] Care Team Providers Care Welder Shielded Metal Arc Name Role Phone Marcio Devlin DO Primary Care Provider [phone] Reason for Visit * Reason Comments Right Hip Pain xr right hip pain (P H left ROSS 03/2006 Ginger) * Consultation (Routine) - Closed Specialty Diagnoses / Procedures Referred By Missy escalera Referred To Contact Orthopaedics Diagnoses Primary osteoarthritis of both hips Primary osteoarthritis of both hips Nico Campbell DO [facility] [place] [address] [facility] [address] [place] [id number] Referral ID Status Reason Start Date Expiration Date V isits Requested Visits Authorized [id number] Closed Consult, Test & Treat 02/18/2019 02/18/2020 1 1 Encounter Details Date Type Department Care Team (Latest Contact Info) Description 02/23/2019 8:20 AM EDT Office Visit [place] [address] lGenn Choe MD [facility] [place] [address] Primary osteoarthritis of right hip; [...] less than $75,000 # People Supported 2 Yemeni, , No, not Yemeni// Race White Health Literacy Extremely Currently working [...] AM EDT Hospital Encounter Non-[place] [address] Arrived 04/29/2024 9:50 AM EDT [place] [address] Luis Alfredo Velazquez MD [facility] [place] [address] 04/29/2024 9:50 AM EDT [place] [address] Luis Alfredo Velazquez MD [facility] [place] [address] 06/07/2024 2:30 PM EDT TH Visit (TeleHealth) [place] [address] Dajuan Rachel MD [facility] [place] [address] 07/02/2024 2:00 PM EDT Appointment Non-[place] [phone] Luis Alfredo Velazquez MD [facility] [place] [address] 07/02/2024 4:00 PM EDT Office Visit Cardiology at [address] [phone] Mars Green PA [facility] [place] [address] 07/02/2024 4:40 PM EDT Office Visit Cardiology at [address] [address] Luis Alfredo Velazquez MD [facility] [place] [address] documented as of this encounter Results * [...] electronic medical record and allergies, as per [facility] protocol. The patient was placed supine on [...] reviewed with patient. Procedure Note Danika Carlton, SKIP - 03/09/2019 HISTORY: Right hip pain, hip joint etiology? RIGHT HIP JOINT INJECTION UNDER FLUOROSCOPY TECHNIQUE: After an extensive conversation with the patient regarding risks andbenefits, oral and written consent were obtained.? A pre- procedural time-out was performed, including review of the patient's relevant electronic medicalrecord and allergies, as per [facility] protocol. The patient was placed supine on [...] thigh documented in this encounter Care Teams Welder Shielded Metal Arc Relationship Specialty Start Date End Date Marcio Devlin DO [address] [place] [address] PCP - General Family Medicine 11/11/17 documented as of this encounter
--- OUTSIDE RECORDS SUMMARY | 2024-04-16 00:28 | XMS_ITS | Encounter Summary ---
Author Organization [facility] Address [facility] [place] [address] Care Team Providers Care Well Site Drilling Engineer Name Role Phone Marcio Devlin DO Primary Care Provider [phone] Reason for Referral * Diagnostic Test (Routine) - Closed Specialty Diagnoses / Procedures Referred By Contac t Referred To Contact Radiology Diagnoses Ankylosing spondylitis, unspecified site of spine Procedures DXA Central-Spine, Hip, And/Or Whole Body (Generic) Nico Campbell [facility] [place] [address] [place] [address] Referral ID Status Reason Start Date Expiration Date V isits Requested Visits Authorized [id number] Closed Specialty Service Requested 08/31/2018 08/31/2019 1 1 Encounter Details Date Type Department Care Team (Late st Contact Info) Description 08/31/2018 10:30 AM EST Office Visit Rheumatology at [facility] [place] [address] Nico Campbell [facility] [place] [address] Ankylosing spondylitis, unspecified site of [...] Follow-up Visit PCP: Marcio Devlin DO [address] [place] [address] Rheumatological History: 1. UC associated Ankylosing Spondylitis [...] -Continue current meds: 1) Humira 40 mg [id number] 2) SZS 1000 mg BID -Check labs: [...] AM EDT Hospital Encounter Non[place] [address] Arrived 04/29/2024 9:50 AM EDT Appointment MRI at [place] [phone] Luis Alfredo Velazquez MD [facility] [place] [address] 04/29/2024 9:50 AM EDT Appointment MRI at [place] [phone] Luis Alfredo Velazquez MD [facility] [place] [address] 06/07/2024 2:30 PM EDT TH Visit (TeleHealth) [place] [address] Dajuan Rachel MD [facility] [place] [address] 07/02/2024 2:00 PM EDT Appointment Non-Invasive Cardiology Lab [address]1000 Luis Alfredo Velazquez MD [facility] [place] [address] 07/02/2024 4:00 PM EDT Office Visit Cardiology at [place] [phone] Mars Green PA [facility] [place] [address] 07/02/2024 4:40 PM EDT Office Visit Cardiology at [place] [phone] Luis Alfredo Velazquez MD [facility] [place] [address] documented as of this encounter Procedures Procedure [...] BMD measurements and plots are available in [employer] under the imaging tab. Paper copies will be sent to providers without [employer] access. If you have received this report without the data sheet and do not have access to [employer], please contact Radiology [employer] at [phone] Friday thru Friday 8am-4pm. Thank you for [...] BMD measurements and plots are available in [employer] the imaging tab. Paper copies will be sent to providers without [employer] access.If you have received this report without the data sheet and do not haveaccess to [facility], please contact Radiology [employer] at [phone] Friday thruFriday 8am-4pm. Thank you for letting us participate in the care of this patient. Forquestions regarding this report, please contact the number below. Oc Gresham MD [employer] DEXA ORDERABLES * Differential, Automated (08/31/2018 11:34 AM EST) Neutrophils % 46.1 % [facility] Neutr Abs (ANC) 2.91 1.70 - 6.10 x10(3)/mcL [facility] Lymphocytes % 43.5 % [facility] Lymphocytes Abs 2.8 0.9 - 3.2 x10(3)/[facility] Monocytes % 7.4 % [facility] Monocyte Abs 0.5 0.3 - 0.9 x10(3)/[facility] Eosinophils % 2.2 % [facility] Eosinophils Abs 0.1 0.0 - 0.4 x10(3)/[facility] Basophils % 0.6 % [facility] Basophils Abs 0.0 0.0 - 0.1 x10(3)/[facility] Immature Gran % 0.20 % [facility] Comment: Immature granulocytes(IG's)percentage and absolute count will include metamyelocytes, myelocytes, and promyelocytes. Blood smears from CBCs yielding IG's will be scanned manually for concordance. If this scan disagrees with the automated IG or if promyelocytes are noted, a manual differential will be performed. Melanie Gran Abs 0.01 0.00 - 0.04 x10(3)/[facility] Blood specimen (specimen) 08/31/2018 11:34 AM EST 08/31/2018 11:47 AM EST Narrative Resulting Agency Comment Spec In Lab Ncio Campbell DO HEMATOLOGY ORDERABLE S [facility] [place] [address] * Hemogram (08/31/2018 11:34 AM EST) WBC 6.3 4.0 - 9.5 x10(3)/[facility] RBC 4.76 4.00 - 5.21 x10(6)/[facility] Hemoglobin 14.6 11.7 - 15.5 gm/dL [facility] Hematocrit 44.5 35.7 - 45.8 % [facility] MCV 93.5 82.6 - 94.4 fL [facility] MCH 30.7 27.1 - 32.0 pg [facility] MCHC 32.8 31.7 - 35.0 gm/dL [facility] Platelets 184 145 - 357 x10(3)/[facility] RDWSD 44.2 37.0 - 46.0 [facility] RDWCV 13.0 11.5 - 14.1 % [facility] MPV 11.0 7.6 - 12.9 [facility] nRBC % Auto 0.0 % [facility] nRBC Abs Auto 0.000 0.000 - 0.000 x10(3)/[facility] Blood specimen (specimen) 08/31/2018 11:34 AM EST 08/31/2018 11:47 AM EST Narrative Resulting Agency Comment Spec In Lab Nico Campbell DO HEMATOLOGY ORDERABLE S Performing Organization Address City/State/[facility] Co de Phone Number [facility] [place] [address] * Comprehensive metabolic panel (non-fasting) (08/31/2018 11:34 AM EST) Glucose Lvl 151 65 - 199 mg/dL [facility] Comment:Diabetes: >=200 mg/d L plus symptoms BUN 16 8 - 18 mg/dL [facility] Creatinine 0.87 0.70 - 1.20 mg/dL [facility] Sodium 143 135 - 145 mmol/L [facility] Potassium 4.1 3.5 - 5.0 mmol/L [facility] Comment: Please note: ??Patients with WBC >100,000 may have falsely elevated Potassium levels. ??For accurate Potassium quantification in these patients send serum separator tube (gold top) for subsequent determinations. ??Contact the Clinical Chemistry Laboratory if there are any questions. Chloride 106 98 - 107 mmol/L [facility] CO2 27 22 - 31 mmol/L [facility] Anion Gap 10 5 - 15 mmol/L [facility] Calcium 9.8 8.5 - 10.5 mg/dL [facility] Total Protein 7.6 6.1 - 8.0 gm/dL [facility] Albumin 4.1 3.2 - 5.2 gm/dL [facility] AST 25 0 - 30 unit/L [facility] ALT 26 0 - 30 unit/L [facility] Alk Phos 89 40 - 104 unit/L [facility] Total Bilirubin 0.4 0.2 - 1.3 mg/dL [facility] Estimated GFR 74 >=60 mL/min/1. 73 m?? [facility] Comment: The eGFR was calculated using the CKD-EPI equation. As with all creatinine based estimates of kidney function, eGFR values calculated with the CKD-EPI equation are not accurate in patients with acute kidney failure, extremes of body mass or the acutely ill. [email or web address]/[email or web address] eGFR 86 >=60 mL/min/1. 73 m?? [facility] Comment: The eGFR was calculated using the CKD-EPI equation. As with all creatinine based estimates of kidney function, eGFR values calculated with the CKD-EPI equation are not accurate in patients with acute kidney failure, extremes of body mass or the acutely ill. [email or web address] Blood specimen (specimen) 08/31/2018 11:34 AM EST 08/31/2018 11:47 AM EST Narrative Resulting Agency Comment Spec In Lab Oc Gresham MD CHEMISTRY ORDERABLES [facility] [place] [address] documented in this encounter Visit Diagnoses Diagnosis Ankylosing spondylitis, unspecified site of spine- Primary Ankylosing spondylitis, unspecified site of spine documented in this encounter Care Teams Well Site Drilling Engineer Relationship Specialty Start Date End Date Marcio Devlin DO [address] [place] [address] PCP - General Family Medicine 11/11/17 documented as of this encounter
--- OUTSIDE RECORDS SUMMARY | 2024-04-16 00:28 | XMS_ITS | Encounter Summary ---
Author Organization [facility] [place] [address] Care Team Providers Care Sewing Inspector Name Role Phone Marcio Carranza MD Primary Care Provider [phone] Encounter Details Date Type Department Care Team (Late st Contact Info) Description 08/14/2017 11:00 AM EST Office [place] [phone] Nico Campbell [facility] [place] [address] Ankylosing spondylitis, unspecified site of spine (Primary [...] MTX/leflunomide are limited by underlying Hx of MÉDNEZ. Interval History: -She reports her sx have been quiescent and stable for >1 year now on her current medications, which is controlling her sx -Prior main issue was low back pain and recurrent iritis that has been treated and is currently andrecently has not been a problem for her -Her current medication regimen is Humira 40 mg [id number] and Sulfasalazine 500mg BID-both of which she [...] colitis related arthropathy. She was currently on [id number] in conjunction with twice daily sulfasalazine for [...] Hospital Encounter Non-[place] [address] Arrived 04/29/2024 9:50 AM [place] [address] Luis Alfredo Velazquez MD [facility] [place] [address] 04/29/2024 9:50 AM [place] [address] Luis Alfredo Velazquez MD [facility] [place] [address] 06/07/2024 2:30 PM EDT TH Visit (TeleHealth) [place] [phone] Dajuan Rachel MD [facility] [place] [address] 07/02/2024 2:00 PM EDT Appointment Non-Invasive Cardiology Lab [place] [phone] Luis Alfredo Velazquez MD [facility] [place] [address] 07/02/2024 4:00 PM EDT Office Visit Cardiology at [address] [address] Mars Green PA [facility] [place] [address] 07/02/2024 4:40 PM EDT Office Visit Cardiology at [address] [phone] Luis Alfredo Velazquez MD [facility] [place] [address] documented as of this encounter Procedures Procedure [...] 12:06 PM EST) Neutrophils % 41.8 % [facility] Neutr Abs (ANC) 2.90 1.70 - 6.10 x10(3)/[facility] Lymphocytes % 46.0 % [facility] Lymphocytes Abs 3.2 0.9 - 3.2 x10(3)/[facility] Monocytes % 9.0 % [facility] Monocyte Abs 0.6 0.3 - 0.9 x10(3)/[facility] Eosinophils % 2.2 % [facility] Eosinophils Abs 0.2 0.0 - 0.4 x10(3)/[facility] Basophils % 0.7 % [facility] Basophils Abs 0.0 0.0 - 0.1 x10(3)/[facility] Immature Gran % 0.30 % [facility] Comment: Immature granulocytes(IG's)percentage and absolute count will include metamyelocytes, myelocytes, and promyelocytes. Blood smears from CBCs yielding IG's will be scanned manually for concordance. If this scan disagrees with the automated IG or if promyelocytes are noted, a manual differential will be performed. Melanie Gran Abs 0.02 0.00 - 0.04 x10(3)/[facility] Blood specimen (specimen) 08/14/2017 12:06 PM EST 08/14/2017 12:10 PM EST Narrative Resulting Agency Comment Spec In Lab Truong Nick MD HEMATOLOGY ORDERABLE S [facility] [place] [address] * (ABNORMAL) Hemogram (08/14/2017 12:06 PM EST) WBC 6.9 4.0 - 9.5 x10(3)/[facility] RBC 5.32(H) 4.00 - 5.21 x10(6)/[facility] Hemoglobin 16.2(H) 11.7 - 15.5 gm/dL [facility] Hematocrit 49.0(H) 35.7 - 45.8 % [facility] MCV 92.1 82.6 - 94.4 fL [facility] MCH 30.5 27.1 - 32.0 pg [facility] MCHC 33.1 31.7 - 35.0 gm/dL [facility] Platelets 196 145 - 357 x10(3)/[facility] RDWSD 43.8 37.0 - 46.0 [facility] RDWCV 13.1 11.5 - 14.1 % [facility] MPV 11.1 7.6 - 12.9 [facility] LABOR[facility]ORY nRBC % Auto 0.0 % [facility] nRBC Abs Auto 0.000 0.000 - 0.000 x10(3)/[facility] Blood specimen (specimen) 08/14/2017 12:06 PM EST 08/14/2017 12:10 PM EST Narrative Resulting Agency Comment Spec In Lab Truong Nick MD HEMATOLOGY ORDERABLE S [facility] [place] [address] * (ABNORMAL) Comprehensive metabolic panel (non-fasting) (08/14/2017 12:06 PM EST) Glucose Lvl 107 65 - 199 mg/dL [facility] Comment:Diabetes: >=200 mg/d L plus symptoms BUN 17 8 - 18 mg/dL [facility] Creatinine 0.81 0.70 - 1.20 mg/dL [facility] Sodium 145 135 - 145 mmol/L [facility] Potassium 4.3 3.5 - 5.0 mmol/L [facility] Comment: Please note: ??Patients with WBC >100,000 may have falsely elevated Potassium levels. ??For accurate Potassium quantification in these patients send serum separator tube (gold top) for subsequent determinations. ??Contact the Clinical Chemistry Laboratory if there are any questions. Chloride 103 98 - 107 mmol/L [facility] CO2 30 22 - 31 mmol/L [facility] Anion Gap 12 5 - 15 mmol/L [facility] Calcium 9.9 8.5 - 10.5 mg/dL [facility] Total Protein 7.8 6.1 - 8.0 gm/dL [facility] Albumin 4.1 3.2 - 5.2 gm/dL [facility] AST 75(H) 0 - 30 unit/L [facility] ALT 84(H) 0 - 30 unit/L [facility] Alk Phos 91 40 - 104 unit/L [facility] Total Bilirubin 0.4 0.2 - 1.3 mg/dL [facility] Estimated GFR >60 >=60 [facility] Comment: The reported eGFR should be multiplied by 1.2 for patients. The MDRD is not an appropriate measure of renal function for patients with body mass extremes or in patients with acute kidney failure. http://[employer]/DHnkdep [email or web address]://[employer]/DHMCnkf Blood specimen (specimen) 08/14/2017 12:06 PM EST 08/14/2017 12:10 PM EST Narrative Resulting Agency Comment Spec In Lab Truong Nick MD CHEMISTRY ORDERABLES [facility] [place] [address] documented in this encounter Visit Diagnoses Diagnosis Ankylosing spondylitis, unspecified site of spine- Primary documented in this encounter Care Teams Sewing Inspector Relationship Specialty Start Date End Date Marcio Carranza MD [address] [place] [address] PCP - General 08/07/10 11/10/17 documented as of this encounter
--- OUTSIDE RECORDS SUMMARY | 2024-04-16 00:28 | XMS_ITS | Encounter Summary ---
Author Organization [facility] [place] [address] Care Team Providers Care Obgyn Specialist Name Role Phone Marcio Devlin DO Primary Care Provider [phone] Encounter Details Date Type Department Care Team (Late st Contact Info) Description 02/24/2018 3:00 PM EDT Office [place] [address] Social History Tobacco Use Types [...] AM EDT Hospital Encounter Non-Invasive Cardiology Lab [place] [phone] Arrived 04/29/2024 9:50 AM EDT Appointment MRI at [address]1000 Luis Alfredo Velazquez MD [facility] [place] [address] 04/29/2024 9:50 AM EDT [place] [address] Luis Alfredo Velazquez MD [facility] [place] [address] 06/07/2024 2:30 PM EDT TH Visit (TeleHealth) Gastroenterology at [address]1000 Dajuan Rachel MD [facility] [place]STRO[place] [address] 07/02/2024 2:00 PM EDT Appointment Non-Invasive Cardiology Lab [place] [phone] Luis Alfredo Velazquez MD [facility] [place] [address] 07/02/2024 4:00 PM EDT Office Visit Cardiology at [address] [phone] Mars Green PA [facility] [place] [address] 07/02/2024 4:40 PM EDT Office Visit Cardiology at [address] [place] [address] Luis Alfredo Velazquez MD [facility] [place] [place] [address] documented as of this encounter Visit Diagnoses Not on filedocumented in this encounter Care Teams Obgyn Specialist Relationship Specialty Start Date End Date Marcio Devlin DO [facility] [address] [place] [address] PCP - General Family Medicine 11/11/17 documented as of this encounter
--- OUTSIDE RECORDS SUMMARY | 2024-04-16 00:28 | XMS_ITS | Encounter Summary ---
[place] [address] Care Team Providers Care Mechanical Integrity Specialist Name Role Phone Marcio Devlin DO Primary Care Provider [phone] Encounter Details Date Type Department Care Team (Latest Contact Info) Description 02/24/2018 2:30 PM EDT Laboratory [place] [address] Uterovaginal prolapse, incomplete; Urinary, incontinence, [...] AM EDT Hospital Encounter [place] [address] Arrived 04/29/2024 9:50 AM EDT [place] [address] Luis Alfredo Velazquez MD [facility] [place] [address] 04/29/2024 9:50 AM EDT Appointment MRI at [address] Luis Alfredo Velazquez MD [facility] [place] [address] 06/07/2024 2:30 PM EDT TH Visit (TeleHealth) Gastroenterology at [place] [address] Dajuan Rachel MD [facility] [place] [address] 07/02/2024 2:00 PM EDT Appointment Non-Invasive Cardiology Lab [address] Luis Alfredo Velazquez MD [facility] [place] [address] 07/02/2024 4:00 PM EDT Office Visit Cardiology at [place] [phone] Mars Green PA [facility] [place] [address] 07/02/2024 4:40 PM EDT Office Visit Cardiology at [address] Luis Alfredo Velazquez MD [facility] [place] [address] documented as of this encounter Procedures Procedure [...] metabolic panel (non-fasting) (02/24/2018 3:03 PM EDT) [facility] Signature Glucose Lvl 89 65 - 199 mg/dL [facility] Comment:Diabetes: >=200 mg/d L plus symptoms BUN 20(H) 8 - 18 mg/dL [facility] Creatinine 0.92 0.70 - 1.20 mg/dL [facility] Sodium 146(H) 135 - 145 mmol/L [facility] Potassium 3.7 3.5 - 5.0 mmol/L [facility] Comment: Please note: ??Patients with WBC >100,000 may have falsely elevated Potassium levels. ??For accurate Potassium quantification in these patients send serum separator tube (gold top) for subsequent determinations. ??Contact the Clinical Chemistry Laboratory if there are any questions. Chloride 103 98 - 107 mmol/L [facility] CO2 29 22 - 31 mmol/L [facility] Anion Gap 14 5 - 15 mmol/L [facility] Calcium 9.9 8.5 - 10.5 mg/dL [facility] Total Protein 7.7 6.1 - 8.0 gm/dL [facility] Albumin 4.1 3.2 - 5.2 gm/dL [facility] AST 36(H) 0 - 30 unit/L [facility] ALT 48(H) 0 - 30 unit/L [facility] Alk Phos 91 40 - 104 unit/L [facility] Total Bilirubin 0.3 0.2 - 1.3 mg/dL [facility] Estimated GFR 70 >=60 mL/min/1. 73 m?? [facility] Comment: The eGFR was calculated using the CKD-EPI equation. As with all creatinine based estimates of kidney function, eGFR values calculated with the CKD-EPI equation are not accurate in patients with acute kidney failure, extremes of body mass or the acutely ill. http://IMN/Maporinkdep http://IMN/[facility] eGFR 81 >=60 mL/min/1. 73 m?? [facility] Comment: The eGFR was calculated using the CKD-EPI equation. As with all creatinine based estimates of kidney function, eGFR values calculated with the CKD-EPI equation are not accurate in patients with acute kidney failure, extremes of body mass or the acutely ill. http://IMN/Maporinkdep http://IMN/[facility] Blood specimen (specimen) Venous Draw / Unknown 02/24/2018 3:03 PM EDT 02/24/2018 3:24 PM EDT Narrative Resulting Agency Comment Spec In Lab Nico Campbell DO CHEMISTRY ORDERABLES [facility] [place] [address] * ABORH Recheck Status (02/24/2018 3:03 PM EDT) ABORH Type Recheck Completed [facility] Blood specimen (specimen) 02/24/2018 3:03 PM EDT 02/24/2018 3:09 PM EDT Narrative Resulting Agency Comment Spec In Lab Liang Fong MD BLOOD BANK LAB ORDER EDUAR [facility] [place] [address] * (ABNORMAL) Differential, Automated (02/24/2018 3:03 PM EDT) Neutrophils % 46.4 % [facility] Neutr Abs (ANC) 4.08 1.70 - 6.10 x10(3)/ L [facility] Lymphocytes % 42.1 % [facility] Lymphocytes Abs 3.7(H) 0.9 - 3.2 x10(3)/ L [facility] Monocytes % 9.4 % [facility] Monocyte Abs 0.8 0.3 - 0.9 x10(3)/[facility] Eosinophils % 1.3 % [facility] Eosinophils Abs 0.1 0.0 - 0.4 x10(3)/ L [facility] Basophils % 0.3 % [facility] Basophils Abs 0.0 0.0 - 0.1 x10(3)/ L [facility] Immature Gran % 0.50 % [facility] Comment: Immature granulocytes(IG's)percentage and absolute count will include metamyelocytes, myelocytes, and promyelocytes. Blood smears from CBCs yielding IG's will be scanned manually for concordance. If this scan disagrees with the automated IG or if promyelocytes are noted, a manual differential will be performed. Melanie Gran Abs 0.04 0.00 - 0.04 x10(3)/ L [facility] Blood specimen (specimen) 02/24/2018 3:03 PM EDT 02/24/2018 3:15 PM EDT Narrative Resulting Agency Comment Spec In Lab Liang Fong MD HEMATOLOGY ORDERABLE S [facility] [place] [address] * (ABNORMAL) Hemogram (02/24/2018 3:03 PM EDT) WBC 8.8 4.0 - 9.5 x10(3)/[facility] RBC 5.01 4.00 - 5.21 x10(6)/[facility] Hemoglobin 15.5 11.7 - 15.5 gm/dL [facility] Hematocrit 46.2(H) 35.7 - 45.8 % [facility] MCV 92.2 82.6 - 94.4 [facility] MCH 30.9 27.1 - 32.0 pg [facility] MCHC 33.5 31.7 - 35.0 gm/dL [facility] Platelets 204 145 - 357 x10(3)/[facility] LABOR[facility] RDWSD 43.5 37.0 - 46.0 [facility] RDWCV 12.9 11.5 - 14.1 % [facility] MPV 10.8 7.6 - 12.9 [facility] nRBC % Auto 0.0 % [facility] nRBC Abs Auto 0.000 0.000 - 0.000 x10(3)/[facility] Blood specimen (specimen) 02/24/2018 3:03 PM EDT 02/24/2018 3:15 PM EDT Narrative Resulting Agency Comment Spec In Lab Liang Fong MD HEMATOLOGY ORDERABLE S [facility] [place] [address] * Antibody screen (02/24/2018 3:03 PM EDT) Ab Screen Interp Negative [facility] Expires at 2359 on: 03/13/2018 [facility] Comment:Corrected from 03/14 12:00 [Unknown] on 02/26/18 08:23 by Eric Lobo Blood specimen (specimen) 02/24/2018 3:03 PM EDT 02/24/2018 3:09 PM EDT Narrative Resulting Agency Comment Spec In Lab Liang Fong MD BLOOD BANK LAB ORDER EDUAR [facility] [place] [address] * ABO/Rh Typing (02/24/2018 3:03 PM EDT) ABORH Type AB Neg [facility] Blood specimen (specimen) 02/24/2018 3:03 PM EDT 02/24/2018 3:09 PM EDT Narrative Resulting Agency Comment Spec In Lab Liang Fong MD BLOOD BANK LAB ORDER EDUAR [facility] [place] [address] * Creatinine (02/24/2018 3:03 PM EDT) [facility] Creatinine 0.92 0.70 - 1.20 mg/dL [facility] Estimated GFR 70 >=60 mL/min/1.7 3 m?? [facility] Comment: The eGFR was calculated using the CKD-EPI equation. As with all creatinine based estimates of kidney function, eGFR values calculated with the CKD-EPI equation are not accurate in patients with acute kidney failure, extremes of body mass or the acutely ill. http://tinycielo24/DHnkdep http://IMN/DHMCnkf eGFR 81 >=60 mL/min/1.7 3 m?? [facility] Comment: The eGFR was calculated using the CKD-EPI equation. As with all creatinine based estimates of kidney function, eGFR values calculated with the CKD-EPI equation are not accurate in patients with acute kidney failure, extremes of body mass or the acutely ill. http://IMN/Maporinkdep http://IMN/DHMCnkf Blood specimen (specimen) 02/24/2018 3:03 PM EDT 02/24/2018 3:15 PM EDT Narrative Resulting Agency Comment Spec In Lab Liang Fong MD CHEMISTRY ORDERABLES [facility] [place] [id number] documented in this encounter Visit Diagnoses Diagnosis Uterovaginal prolapse, incomplete Urinary, incontinence, stress female Female stress incontinence documented in this encounter Care Teams Mechanical Integrity Specialist Relationship Specialty Start Date End Date Marcio Devlin DO [address] [place] [address] PCP - General Family Medicine 11/11/17 documented as of this encounter
--- OUTSIDE RECORDS SUMMARY | 2024-04-16 00:28 | XMS_ITS | Encounter Summary ---
Author Organization [facility] [place] [address] Care Team Providers Care Australian Rules Footballer Name Role Phone Marcio Devlin DO Primary Care Provider [phone] Reason for Visit * Reason Onset Date Comments Medication Refill 11/20/2017 Encounter Details Date Type Department Care Team (Late st Contact Info) Description 11/20/2017 Ref[place] [address] Mark Godo, RN Ankylosing spondylitis of cervical region Social [...] AM EDT Hospital Encounter Non-[place] [address] Arrived 04/29/2024 9:50 AM EDT App[place]ment MRI [place] [address] Luis Alfredo Velazquez MD [facility] [place] [address] 04/29/2024 9:50 AM EDT Appointment MRI at [address] Luis Alfredo Velazquez MD [facility] [place] [address] 06/07/2024 2:30 PM EDT TH Visit (TeleHealth) Gastroenterology at [place] [address] Dajuan Rachel MD [facility] [place] [address] 07/02/2024 2:00 PM EDT Appointment Non-Invasive Cardiology Lab [address] Luis Alfredo Velazquez MD [facility] [place] [address] 07/02/2024 4:00 PM EDT Office Visit Cardiology at [place] [address] [place] [facility] [place] [place] [address] 07/02/2024 4:40 PM EDT Office Visit Cardiology at [address]1000 Luis Alfredo Velazquez MD [facility] [place] [address] documented as of this encounter Visit Diagnoses Diagnosis Ankylosing spondylitis of cervical region Ankylosing spondylitis documented in this encounter Care Teams Australian Rules Footballer Relationship Specialty Start Date End Date Marcio Devlin DO [address] [place] [address] PCP - General Family Medicine 11/11/17 documented as of this encounter
--- OUTSIDE RECORDS SUMMARY | 2024-04-16 00:28 | XMS_ITS | Encounter Summary ---
Author Organization [facility] [place] [address] Care Team Providers Care Non Destructive Testing Supervisor Name Role Phone Marcio Devlin DO Primary Care Provider [phone] Reason for Visit * Reason Onset Date Comments Post Procedure Call 03/12/2018 Encounter Details Date Type Department Care Team (Late st Contact Info) Description 03/12/2018 Telephone Obstetrics [place] [address] Leidy Saravia RN Post Procedure [...] evening or weekends and ask for the organic chemist middle school professional if she is having problems. LEIDY SARAVIA RN documented in this encounter Plan of Treatment Upcoming Encounters Date Type Department Care Team (Late st Contact Info) Description 04/19/2024 10:00 AM EDT Hospital Encounter Non[place] [address] Arrived 04/29/2024 9:50 AM ED[place] [phone] Luis Alfredo Velazquez MD [facility] [place] [address] 04/29/2024 9:50 AM ED[place] [address] Luis Alfredo Velazquez MD [facility] [place] [address] 06/07/2024 2:30 PM EDT TH Visit (TeleHealth) [place] [address] Dajuan Rachel MD [facility] [place] [address] 07/02/2024 2:00 PM EDT Appointment Non-Invasive Cardiology Lab [place] [phone] Luis Alfredo Velazquez MD [facility] [place] [address] 07/02/2024 4:00 PM EDT [place] [address] [place] [facility] [place] [address] 07/02/2024 4:40 PM EDT Office Visit Cardiology at [address] [address] Luis Alfredo Velazquez MD [facility] [place] [address] documented as of this encounter Visit Diagnoses Not on filedocumented in this encounter Care Teams Non Destructive Testing Supervisor Relationship Specialty Start Date End Date Marcio Devlin DO [address] [place] [address] PCP - General Family Medicine 11/11/17 documented as of this encounter
--- OUTSIDE RECORDS SUMMARY | 2024-04-16 00:28 | XMS_ITS | Encounter Summary ---
Author Organization [facility] Address [facility] [place] [address] Care Team Providers Care Stone Setter Name Role Phone Marcio Devlin DO Primary Care Provider [phone] Reason for Visit * Auth/Cert Specialty Diagnoses [...] Expiration Date Visits Re quested Visits Authorized [id number] 1 1 Encounter Details Date Type Department Care Team (Late st Contact Info) Description 03/10/2018 7:30 AM EDT - 03/10/2018 11:18 AM EDT Surgery Main Operating Room [facility] [place] [address] Liang Fong MD [facility] [place] [address] HYSTERECTOMY, VAGINAL, REMOVAL TUBE(S) & OR OVARY(S) (WRU 15.12) Social History Tobacco Use Types Packs/Day Years [...] Kim Funes Patient Age: 57 y.o. Language: Central [place] Race: White Ethnicity: Not nor Admit date: 03/10/2018 Discharge date and time: 03/11/2018 Attending Physician: Liang Fong MD Discharge Physician: Liang Fong MD Follow-up Recommendations for Providers: Follow up appointment: 04/21/18 at 1:[address] Fong Inpatient Provider Contact Information: Female Pelvic Medicine and Reconstructive Surgery Department of Obstetrics and Gynecology [phone] Discharge Diagnoses (Hospital Problems) and Secondary Diagnoses [...] secondary to snk spond so was referred [facility] for anesthesia to evaluate. Hospital Course: Kim [...] 1000 mg Refills: 0 SUMAtriptan 20 mg/actuation [place] Commonly known as: IMITREX 1 spray as [...] in with the urogynecology office nurse at [phone] to review how your bladder is working and when the catheter use can be discontinued. For problems or concerns related to this hospitalization call: [phone] weekdays, or [phone] weekends or nights. Call your doctor if [...] Liang Fong MD Obstetrics and Gynecology at [place] [phone] 08/31/2018 11:00 AM Nico Campbell DO Rheumatology at [place] [phone] Discharge References/Attachments None Provider Contact Information: Marcio Devlin DO [phone] documented in this encounter Discharge Instructions * [...] in with the urogynecology office nurse at [phone] to review how your bladder is working and when the catheter use can be discontinued. For problems or concerns related to this hospitalization call: [phone] weekdays, or [phone] weekends or nights. Call your doctor if [...] by mouth daily. SUMAtriptan (IMITREX) 20 mg/actuation [place], Non-Aerosol 1 spray as needed. 11/03/2017 metFORMIN [...] output FEK: D/c IVF. Tolerating PO intake. CIGAR HEAD STRINGER: Final pathology report pending. -Follow up in [...] history. She is Post-operative day #1 from [facility], [place]. Retropubic MUS, cysto. I have [...] intake. -Wean IVF when tolerating full diet CIGAR HEAD STRINGER: Final pathology report pending. -Follow up in clinic 4-6 weeks postoperatively Endocrine: DM II - sensitive SSI ordered ID: Afebrile, received prophylactic antibiotics preop, no evidence of infection -continue to monitor vital signs. Prophylaxis: SCDs while in bed, encourage ambulation, incentive spirometry Dispo: Anticipate discharge tomorrow Code Status: Full Code Jason Stapleton MD PGY-2 03/10/2018 Gynecology Service Pager: [phone] ([phone] [phone]), otherwise page [phone] * Aleta Croft, RN - 03/10/2018 11:25 AM EDT Pt arrived from OR to PACU. Placed on monitor and alarms adjusted. Received report.1225: infor visit. documented in this encounter H&P Notes * Victorina Becker - 03/10/2018 6:30 AM EDT Inpatient [facility]INCHILLA FARMER - Admission Interval Note I have reviewed [...] Fong MD - 03/10/2018 11:21 AM EDT [facility] Operative Note Patient Name: Kim Funes : [id number] MR#: [id number] Case Date: 03/10/2018 Surgeon: Surgeon(s) and Role: [...] the cervical portio with 1% lidocaine with [id number] Epinephrine solution. A weighted speculum had been [...] defect, and this was reapproximated with a [id number] 0Vicryl suture in interrupted fashion. After the [...] Operative Note Patient Name: Kim Funes : [id number] MR#: [id number] Case Date: 03/10/2018 Surgeon: Surgeon(s) and Role: [...] AM EDT Hospital Encounter Non-[place] [address] Arrived 04/29/2024 9:50 AM [place] [address] Luis Alfredo Velazquez MD [facility] [place] [address] 04/29/2024 9:50 AM EDT [place] [phone] Luis Alfredo Velazquez MD [facility] [place] [address] 06/07/2024 2:30 PM EDT TH Visit (TeleHealth) Gastroenterology at [address] Dajuan Rachel MD [facility] [place] [address] 07/02/2024 2:00 PM EDT Appointment Non-[place] [address] Luis Alfredo Velazquez MD [facility] [place] [address] 07/02/2024 4:00 PM EDT Office Visit Cardiology at [address] [address] [place] [facility] [place] [address] 07/02/2024 4:40 PM EDT Office Visit Cardiology at [address] [address] Luis Alfredo Velazquez MD [facility] [place] [address] documented as of this encounter Procedures Procedure Name Priority Date/Time Associated Diagnosis Comments MANAGER PRIVATE SCAN 03/12/2018 12:00 AM EDT POCT GLUCOSE [...] in this encounter Results * SCAN DOC: MANAGER PRIVATE (03/12/2018 12:00 AM EDT) Anatomical Region Laterality Modality Other Narrative 03/12/2018 12:00 AM EDT Ordered by an unspecified provider. Scanning Provider MEDIA MGR SCAN EXT O RDR/RSLT * POCT Glucose (03/11/2018 7:16 AM EDT) POC Glucose 121 65 - 199 mg/dL [facility] Comment: Supplemental ranges: <140 mg/dL before meals <180 mg/dL all other times of the day Blood specimen (specimen) 03/11/2018 7:16 AM EDT 03/11/2018 7:16 AM EDT Liang Fong MD POINT OF CARE TEST O IRMA Performing Organization Address City/[facility]/ZIP Co de Phone Number [facility] [place] [place] [address] * POCT Glucose (03/10/2018 9:20 PM EDT) POC Glucose 107 65 - 199 mg/dL [facility] Comment: Supplemental ranges: <140 mg/dL before meals <180 mg/dL all other times of the day Blood specimen (specimen) 03/10/2018 9:20 PM EDT 03/10/2018 9:20 PM EDT Liang Fong MD POINT OF CARE TEST O IRMA [facility] [place] [address] * POCT Glucose (03/10/2018 4:39 PM EDT) POC Glucose 110 65 - 199 mg/dL [facility] Comment: Supplemental ranges: <140 mg/dL before meals <180 mg/dL all other times of the day Blood specimen (specimen) 03/10/2018 4:39 PM EDT 03/10/2018 4:39 PM EDT Liang Fong MD POINT OF CARE TEST O IRMA Performing Organization Address [facility] de Phone Number [facility] [place] [address] * POCT Glucose (03/10/2018 11:23 AM EDT) POC Glucose 137 65 - 199 mg/dL [facility] Comment: Supplemental ranges: <140 mg/dL before meals <180 mg/dL all other times of the day Blood specimen (specimen) 03/10/2018 11:23 AM EDT 03/10/2018 11:23 AM EDT Liang Fong MD POINT OF CARE TEST O IRMA Performing Organization Address [facility] Co de Phone Number [facility] [place] [place] [address] * Specimen to Pathology (03/10/2018 9:22 AM EDT) AP Specimen 03/10/2018 9:22 AM EDT 03/10/2018 11:02 AM EDT Narrative [facility] - 03/10/2018 11:03 AM EDT Specimen requisition ordered. ??Separate Pathology report to follow Resulting Agency Comment Spec In Lab Liang Fong MD PATHOLOGY/CYTOLOGY O IRMA Performing Organization Address [facility] Co de Phone Number [facility] [place] [address] * Surgical Pathology Report (03/10/2018 9:00 AM EDT) FINAL DIAGNOSIS (AP) [id number] ? Location: SSU; SS14; A The signing pathologist has (i) examined [...] Marc Hayes Verified: ??03/16/2018 ?Pathologist Performed at: ??-[facility] Dept. of Pathology, [place], [place] CLINICAL INFORMATION Specimen Submitted: A - [...] nodules. (R5) nsm 03/16/2018 2:03 PM EDT [facility] Uterine Corpus 03/10/2018 9: 00 AM EDT 03/10/2018 9:00 AM EDT Liang Fong MD PATHOLOGY/CYTOLOGY O IRMA [facility] [place] [address] * POCT Glucose (03/10/2018 6:28 AM EDT) POC Glucose 107 65 - 199 mg/dL [facility] Comment: Supplemental ranges: <140 mg/dL before meals <180 mg/dL all other times of the day Blood specimen (specimen) 03/10/2018 6:28 AM EDT 03/10/2018 6:28 AM EDT Liang Fong MD POINT OF CARE TEST O RDERABLES [facility] [place] [address] documented in this encounter Visit Diagnoses Not [...] Moy RN) 0006 (Given - Provider: Carmencita L [place], RN)0548 (Given - Provider: Carmencita Waters RN) clindamycin (CLEOCIN) 900mg in dextrose 5% [...] 08 (Given - Provider: Alexis Horton MD) docusate sodium (COLACE) capsule 100 mg 100 mg, Oral, 2 TIMES DAILY, First dose on Fri03/10/18 at 1400, Until Discontinued, Routine 1340 (Given - Provider: Chantell Moy RN)2023 (Given - Provider: Carmencita Waters RN) 0824 (Given - Provider: Chantell Moy RN) gentamicin (GARAMYCIN) 360 mg in sodium chloride 0.9% 109 mL (COMPLETED) 360 mg, Intravenous, ONCE, 1 dose, On Fri03/10/18 at 0645, Administer over 60 Minutes, Consider alternative if CrCl is less than 20 or between 20-50., Day of Surgery (Day of Procedure), Indication for (Active or Suspected): Prophylaxis 809 (Given - Provider: Alexis Horton MD) insulin [...] Horton MD)1137 (New Bag - Provider: Aleta Croft, RN)1841 (New Bag - Provider: Chantell Moy, FRANCESCA) 0624 (Stopped - Provider: Carmencita Waters, FRANCESCA) PRN Medication Order 03/09/2018 03/10/2018 03/11/2018 dextrose [...] Recovery, Routine 1152 (Given - Provider: Aleta Croft, RN)1157 (Given - Provider: Aleta Croft, RN)1237 (Given - Provider: Aleta Croft, RN) lidocaine (XYLOCAINE) 10 mg/mL (1 %) [...] Routine documented in this encounter Care Teams Stone Setter Relationship Specialty Start Date End Date Marcio Devlin DO [address] [place] [address] PCP - General Family Medicine 11/11/17 documented as of this encounter
--- OUTSIDE RECORDS SUMMARY | 2024-04-16 00:28 | XMS_ITS | Encounter Summary ---
Author Organization [facility] [place] [address] Care Team Providers Care Supervisor Long Goods Name Role Phone Marcio Carranza MD Primary Care Provider [phone] Encounter Details Date Type Department Care Team (Late st Contact Info) Description 05/06/2017 4:15 PM EDT Office [place] [phone] Nico Campbell [facility] [place] [address] Ankylosing spondylitis, unspecified site of spine (Primary [...] current medication regimen is Humira 40 mg [id number] and Sulfasalazine 500mg BID-both of which she [...] with UC managed on Humira 40 mg [id number] and Sulfasalazine 500 mg BID, which she [...] AM EDT Hospital Encounter Non-[place] [address] Arrived 04/29/2024 9:50 [place] [phone] Luis Alfredo Velazquez MD [facility] [place] [address] 04/29/2024 9:50 [place] [address] Luis Alfredo Velazquez MD [facility] [place] [address] 06/07/2024 2:30 PM EDT TH Visit (TeleHealth) Gastroenterology at [address] Dajuan Rachel MD [facility] [place] [address] 07/02/2024 2:00 PM EDT Appointment Non-[place] [address] Luis Alfredo Velazquez MD [facility] [place] [address] 07/02/2024 4:00 PM EDT Office Visit Cardiology at [place] [phone] Mars Green PA [facility] [place] [address] 07/02/2024 4:40 PM EDT Office Visit Cardiology at [place] [phone] Luis Alfredo Velazquez MD [facility] [address] [place], [place] [phone] documented as of this encounter Procedures Procedure [...] 5:03 PM EDT) Neutrophils % 47.2 % [facility] Neutr Abs (ANC) 3.79 1.70 - 6.10 x10(3)/[facility] Lymphocytes % 39.6 % [facility] Lymphocytes Abs 3.2 0.9 - 3.2 x10(3)/[facility] Monocytes % 10.4 % [facility] Monocyte Abs 0.8 0.3 - 0.9 x10(3)/[facility] Eosinophils % 1.9 % [facility] Eosinophils Abs 0.2 0.0 - 0.4 x10(3)/[facility] Basophils % 0.5 % [facility] Basophils Abs 0.0 0.0 - 0.1 x10(3)/[facility] Immature Gran % 0.40 % [facility] Comment: Immature granulocytes(IG's)percentage and absolute count will include metamyelocytes, myelocytes, and promyelocytes. Blood smears from CBCs yielding IG's will be scanned manually for concordance. If this scan disagrees with the automated IG or if promyelocytes are noted, a manual differential will be performed. Melanie Gran Abs 0.03 0.00 - 0.04 x10(3)/[facility] Blood specimen (specimen) 05/06/2017 5:03 PM EDT 05/06/2017 5:10 PM EDT Narrative Resulting Agency Comment Spec In Lab Kasey Retana MD HEMATOLOGY ORDERABLE S [facility] [place] [address] * (ABNORMAL) Hemogram (05/06/2017 5:03 PM EDT) [facility] WBC 8.0 4.0 - 9.5 x10(3)/[facility] RBC 5.03 4.00 - 5.21 x10(6)/[facility] Hemoglobin 15.4 11.7 - 15.5 gm/dL [facility] Hematocrit 46.2(H) 35.7 - 45.8 % [facility] MCV 91.8 82.6 - 94.4 [facility] MCH 30.6 27.1 - 32.0 pg [facility] MCHC 33.3 31.7 - 35.0 gm/dL [facility] Platelets 204 145 - 357 x10(3)/[facility] RDWSD 44.7 37.0 - 46.0 [facility] RDWCV 13.2 11.5 - 14.1 % [facility] MPV 11.0 7.6 - 12.9 [facility] nRBC % Auto 0.0 % [facility] nRBC Abs Auto 0.000 0.000 - 0.000 x10(3)/[facility] Blood specimen (specimen) 05/06/2017 5:03 PM EDT 05/06/2017 5:10 PM EDT Narrative Resulting Agency Comment Spec In Lab Kasey Retana MD HEMATOLOGY ORDERABLE S [facility] [place] [address] * (ABNORMAL) Comprehensive metabolic panel (non-fasting) (05/06/2017 5:03 PM EDT) Glucose Lvl 164 65 - 199 mg/dL [facility] Comment:Diabetes: >=200 mg/d L plus symptoms BUN 15 8 - 18 mg/dL [facility] Creatinine 0.75 0.70 - 1.20 mg/dL [facility] Comment: Please note that the pediatric reference intervals supplied above were not validated at [facility]. Results from pediatric patients should be interpreted in conjunction to the patient's age, height and muscle mass. Sodium 142 135 - 145 mmol/L [facility] Potassium 4.0 3.5 - 5.0 mmol/L [facility] Comment: Please note: ??Patients with WBC >100,000 may have falsely elevated Potassium levels. ??For accurate Potassium quantification in these patients send serum separator tube (gold top) for subsequent determinations. ??Contact the Clinical Chemistry Laboratory if there are any questions. Chloride 102 98 - 107 mmol/L [facility] CO2 27 22 - 31 mmol/L [facility] Anion Gap 13 5 - 15 mmol/L [facility] Calcium 9.9 8.5 - 10.5 mg/dL [facility] Total Protein 7.6 6.1 - 8.0 gm/dL [facility] Albumin 4.1 3.2 - 5.2 gm/dL [facility] AST 37(H) 0 - 30 unit/L [facility] ALT 42(H) 0 - 30 unit/L [facility] Alk Phos 89 40 - 104 unit/L [facility] Total Bilirubin 0.3 0.2 - 1.3 mg/dL [facility] Estimated GFR >60 >=60 [facility] Comment: This estimated GFR (eGFR) value [...] the following links into your internet browser. [email or web address] Blood specimen (specimen) 05/06/2017 5:03 PM EDT 05/06/2017 5:10 PM EDT Narrative Resulting Agency Comment Spec In Lab Kasey Retana MD CHEMISTRY ORDERABLES [facility] [place] [address] documented in this encounter Visit Diagnoses Diagnosis Ankylosing spondylitis, unspecified site of spine- Primary documented in this encounter Care Teams Supervisor Long Goods Relationship Specialty Start Date End Date Marcio Carranza MD [address] [place] [address] PCP - General 08/07/10 11/10/17 documented as of this encounter
--- OUTSIDE RECORDS SUMMARY | 2024-04-16 00:28 | XMS_ITS | Encounter Summary ---
[place] [address] Care Team Providers Care Box Office Attendant Name Role Phone Marcio Devlin DO Primary Care Provider [phone] Reason for Visit * Reason Onset Date Comments Prior Authorization 10/09/2018 Shannon Encounter Details Date Type Department Care Team (Late st Contact Info) Description 10/09/2018 [place] [phone] Cory Garcia Prior Authorization (Shannon) Social History [...] AM EDT Hospital Encounter Non-Invasive Cardiology Lab [place] [phone] Arrived 04/29/2024 9:50 AM EDT Appointment MRI at [address]1000 Luis Alfredo Velazquez MD [facility] [place] [address] 04/29/2024 9:50 AM EDT Appointment MRI at [address]1000 Luis Alfredo Velazquez MD [facility] [place] [address] 06/07/2024 2:30 PM EDT TH Visit (TeleHealth) Gastroenterology at [address]1000 Dajuan Rachel MD [facility] [place] [address] 07/02/2024 2:00 PM EDT Appointment Non-Invasive Cardiology Lab [place] [phone] Lui sAlfredo Velazquez MD [facility] [place] [address] 07/02/2024 4:00 PM EDT Office Visit Cardiology at [place] [phone] [place], [place] [facility] [place] [address] 07/02/2024 4:40 PM EDT Office Visit Cardiology at [address] [phone] Luis Alfredo Velazquez MD [facility] [place] [address] documented as of this encounter Visit Diagnoses Not on filedocumented in this encounter Care Teams Box Office Attendant Relationship Specialty Start Date End Date Marcio Devlin DO [address] [place] [address] PCP - General Family Medicine 11/11/17 documented as of this encounter
--- OUTSIDE RECORDS SUMMARY | 2024-04-16 00:28 | XMS_ITS | Encounter Summary ---
Author Organization [facility] [place] [address] Care Team Providers Care House Painting Instructor Name Role Phone Marcio Carranza MD Primary Care Provider [phone] Encounter Details Date Type Department Care Team (Late st Contact Info) Description 08/14/2017 [place] [phone] Nico Campbell DO [facility] [place] [address] Social History Tobacco Use Types Packs/Day Years [...] Hospital Encounter Non-Invasive Cardiology Lab [place] [phone] Arrived 04/29/2024 9:50 AM EDT Appointment MRI at [address]1000 Luis Alfredo Velazquez MD [facility] [place] [address] 04/29/2024 9:50 AM [place] [address] Luis Alfredo Velazquez MD [facility] [place] [address] 06/07/2024 2:30 PM EDT TH Visit (TeleHealth) Gastroenterology at [address]1000 Dajuan Rachel MD [facility] [place] [address] 07/02/2024 2:00 PM EDT Appointment Non-Invasive Cardiology Lab [place] [phone] Luis Alfredo Velazquez MD [facility] [place] [address] 07/02/2024 4:00 PM EDT Office Visit Cardiology at [address] [phone] Mars Green [place] [facility] [place] [address] 07/02/2024 4:40 PM EDT Office Visit Cardiology at [address] [address] Luis Alfredo Velazquez MD [facility] [place] [address] documented as of this encounter Visit Diagnoses Not on filedocumented in this encounter Care Teams House Painting Instructor Relationship Specialty Start Date End Date Marcio Carranza MD [address] [place] [address] PCP - General 08/07/10 11/10/17 documented as of this encounter
--- OUTSIDE RECORDS SUMMARY | 2024-04-16 00:28 | XMS_ITS | Encounter Summary ---
Author Organization [facility] [place] [address] Care Team Providers Care Photostat Operator Name Role Phone Marcio Devlin DO Primary Care Provider [phone] Reason for Visit * Reason Onset Date Comments Medication Refill 10/08/2018 Encounter Details Date Type Department Care Team (Late st Contact Info) Description 10/08/2018 [place] [phone] Mark Good, RN Ankylosing spondylitis of cervical [...] AM EDT Hospital Encounter Non-[place] [address] Arrived 04/29/2024 9:50 AM EDT Appointment MRI at [address]1000 Luis Alfredo Velazquez MD [facility] [place] [address] 04/29/2024 9:50 AM EDT Appointment MRI at [place] [address] Luis Alfredo Velazquez MD [facility] [place] [address] 06/07/2024 2:30 PM EDT TH Visit (TeleHealth) [place] [address] Dajuan Rachel MD [facility] [place] [address] 07/02/2024 2:00 PM EDT Appointment Non-Invasive Cardiology Lab [place] [phone] Luis Alfredo Velazquez MD [facility] [place] [address] 07/02/2024 4:00 PM EDT Office Visit Cardiology at [place] [phone] Mars Green [place] [facility] [place] [address] 07/02/2024 4:40 PM EDT Office Visit Cardiology at [place] [phone] Luis Alfredo Velazquez MD [facility] [place] [address] documented as of this encounter Visit Diagnoses Diagnosis Ankylosing spondylitis of cervical region Ankylosing spondylitis documented in this encounter Care Teams Photostat Operator Relationship Specialty Start Date End Date Marcio Devlin DO [facility] [place] [address] PCP - General Family Medicine 11/11/17 documented as of this encounter
--- OUTSIDE RECORDS SUMMARY | 2024-04-16 00:28 | XMS_ITS | Encounter Summary ---
Author Organization [facility] [place] [address] Care Team Providers Care Knot Saw Operator Name Role Phone Marcio Devlin DO Primary Care Provider [phone] Encounter Details Date Type Department Care Team (Late st Contact Info) Description 01/26/2018 11:30 AM EDT Procedure visit [place] [address] Rian aCstro MD [facility] [place] [address] Ankylosing spondylitis, unspecified site of spine Social [...] Images are available on the Rheumatology Image Carton Catcher Archive. Images of the left hand demonstrate [...] AM EDT Hospital Encounter Non[place] [address] Arrived 04/29/2024 9:50 AM EDT [place] [address] Luis Alfredo Velazquez MD [facility] [address] 04/29/2024 9:50 AM EDT [place] [address] Luis Alfredo Velazquez MD [facility] [address] 06/07/2024 2:30 PM EDT TH Visit (TeleHealth) [place] [phone] Dajuan Rachel MD [facility] [place] [address] 07/02/2024 2:00 PM EDT Appointment Non-[place] [phone] Luis Alfredo Velazquez MD [facility] [place] [address] 07/02/2024 4:00 PM EDT Office Visit Cardiology at [address] [phone] Mars Green [place] [facility] CARDIOLOGY [place], [place] [phone] 07/02/2024 4:40 PM EDT Office Visit Cardiology at [address] [phone] Luis Alfredo Velazquez MD [facility] [place] [address] documented as of this encounter Visit Diagnoses Diagnosis Ankylosing spondylitis, unspecified site of spine documented in this encounter Care Teams Knot Saw Operator Relationship Specialty Start Date End Date Marcio Devlin DO [address] [place] [address] PCP - General Family Medicine 11/11/17 documented as of this encounter
--- OUTSIDE RECORDS SUMMARY | 2024-04-16 00:28 | XMS_ITS | Encounter Summary ---
Author Organization [facility] Address [facility] [place] [address] Care Team Providers Care Bridge Game Director Name Role Phone Marcio Devlin DO Primary Care Provider [phone] Encounter Details Date Type Department Care Team (Late st Contact Info) Description 10/09/2018 [place] [address] Nico Campbell [facility] [place] [address] Ankylosing spondylitis of cervical region Social History [...] Notes * Telephone Encounter - Mai Rendon [facility] - 10/09/2018 10:08 AM EST Specialty Pharmacy Referral; Mai Rendon [facility] Transfer of Services Kim Funes [address] [facility] [address] Telephone Information: The - Specialty Pharmacy has received a prescription for Humira for patient Ms. Kim Funes 58 y.o. (1960). Due to a mandate from the patient's insurer, the prescription needs to be filled with [facility]. Spoke with patient to notify of this change and provided numberto reach the new filling pharmacy. A copy of patient's medication profile was offered to the accepting pharmacy. Additional instructions provided to patient about transfer: no The patient has been advised to call the [facility] at [phone] with any questions or concerns on this referral. Thank you, Mai Rendon RPH 10/09/18 10:09 AM Patient understands no changes to current drug regimen were made at this time. documented in this encounter Plan of Treatment Upcoming Encounters Date Type Department Care Team (Late st Contact Info) Description 04/19/2024 10:00 AM EDT Hospital Encounter Non[place] [phone] Arrived 04/29/2024 9:50 AM [place] [phone] Luis Alfredo Velazquez MD [facility] [place] [address] 04/29/2024 9:50 AM [place] [phone] Luis Alfredo Velazquez MD [facility] [place] [address] 06/07/2024 2:30 PM EDT TH Visit (TeleHealth) [place] [phone] Dajuan Rachel MD [facility] [address] 07/02/2024 2:00 PM EDT Appointment Non-Invasive Cardiology Lab [place] [phone] Luis Alfredo Velazquez MD [facility] [place] [address] 07/02/2024 4:00 PM EDT Office Visit Cardiology at [address] [phone] Mars Green PA [facility] [place] [address] 07/02/2024 4:40 PM EDT Office Visit Cardiology at [address] [address] Luis Alfredo Velazquez MD [facility] [place] [address] documented as of this encounter Visit Diagnoses Diagnosis Ankylosing spondylitis of cervical region Ankylosing spondylitis documented in this encounter Care Teams Bridge Game Director Relationship Specialty Start Date End Date Marcio Devlin DO [address] [place] [address] PCP - General Family Medicine 11/11/17 documented as of this encounter
--- OUTSIDE RECORDS SUMMARY | 2024-04-16 00:28 | XMS_ITS | Encounter Summary ---
Author Organization [facility] Address [facility] [place] [address] Care Team Providers Care Dude Wrangler Name Role Phone Marcio Devlin DO Primary Care Provider Reason for Visit * Reason Comments Establish Care * Consultation (Routine) - Closed Specialty Diagnoses / Procedures Referred By Missy escalera Referred To Contact Obstetrics and Gynecology Diagnoses Urethral caruncle, Stress urinary incontinence Franki Hancock MD [address] [place] [address] [facility] Supervisor [address] [place] [address] Referral ID Status Reason Start Date Expiration Date Visits Re quested Visits Authorized [id number] Closed 09/02/2017 09/02/2018 1 1 Encounter Details Date Type Department Care Team (Late st Contact Info) Description 02/20/2018 3:00 PM EDT Office Visit Obstetrics [place] [address] Liang Fong MD [facility] [place] [address] Uterovaginal prolapse, incomplete (Primary Dx); Urinary, [...] Female Pelvic Medicine and Reconstructive Surgery @ [facility] Patient Name: Kim Funes Patient Primary Care [...] secondary to snk spond so was referred [facility] for anesthesia to evaluate. Has ank spond [...] ESTRADA at [facility] ENDOSCOPY ??? PRO COLONOSCOPY, BIOPSY N/A 03/04/2017 COLONOSCOPY FLEXIBLE, WITH BX (WRVU 3.66) performed by Raúl Austin MD at [facility] ENDOSCOPY ??? PRO COLONOSCOPY, REMV LESN, SNARE 01/02/2011 COLONOSCOPY, POLYPECTOMY, REMOVAL LESION BY SNARE performed by YAQUELIN ESTRADA at [facility] ENDOS[facility] ??? PRO COLONOSCOPY, REMV LESN, SNARE N/A 03/04/2017 COLONOSCOPY, POLYPECTOMY, REMOVAL LESION BY SNARE (WRVU 4.67) performed by Raúl Austin MD at [facility] ENDOSCOPY ??? SALPINGECTOMY Obstetric History T1 L0 [...] kit 5 ??? SUMAtriptan (IMITREX) 20 mg/actuation [place], Non-Aerosol 1 spray as needed. ??? ferrous [...] test (empty supine): POSITIVE External Genitalia: Vulva, Deaver's and Bartholin glands normal, urethra without tenderness [...] her uterovaginal prolapse: 1. Vaginal hysterectomy with [place] ligament (uterosacral or sacrospinous) repair, with 70-80% [...] airway and prepare for intubation Surgery for RADAH and Pelvic floor disorders informational pamphlets given [...] supportive measures. The patient did sign the [facility] acute narcotic consent form in anticipation of typical post-operative opioid therapy for approximately 7 days. Liang Fong MD Division of Female Pelvic Medicine/Reconstructive Surgery CC: DO Franki Booth documented in this encounter Plan of Treatment Upcoming Encounters Date Type Department Care Team (Late st Contact Info) Description 04/19/2024 10:00 AM EDT Hospital Encounter Non-Invasive Cardiology Lab [place] [phone] Arrived 04/29/2024 9:50 AM [place] [address] Luis Alfredo Velazquez MD [facility] [place] [address] 04/29/2024 9:50 AM EDT Appointment MRI at [place] [address] Luis Alfredo Velazquez MD [facility] [place] [address] 06/07/2024 2:30 PM EDT TH Visit (TeleHealth) Gastroenterology at [place] [phone] Dajuan Rachel MD [facility] [place] [address] 07/02/2024 2:00 PM EDT Appointment Non-Invasive Cardiology Lab [place] [phone] Luis Alfredo Velazquez MD [facility] [place] [address] 07/02/2024 4:00 PM EDT Office Visit Cardiology at [place] [phone] Mars Green PA [facility] [place] [address] 07/02/2024 4:40 PM EDT Office Visit Cardiology at [place] [phone] Luis Alfredo Velazquez MD [facility] [place] [address] documented as of this encounter Visit Diagnoses Diagnosis Uterovaginal prolapse, incomplete- Primary Urinary, incontinence, stress female Female stress incontinence documented in this encounter Care Teams Dude Wrangler Relationship Specialty Start Date End Date Marcio Devlin DO [address] [place] [address] [place] [address] PCP - General Family Medicine 11/11/17 documented as of this encounter
--- OUTSIDE RECORDS SUMMARY | 2024-04-16 00:28 | XMS_ITS | Encounter Summary ---
[place] [address] Care Team Providers Care Long Wall Mining Machine Tender Name Role Phone Marcio Devlin DO Primary Care Provider [phone] Reason for Referral * Consultation (Routine) - Closed Specialty Diagnoses / Procedures Referred By Missy escalera Referred To Contact Orthopaedics Diagnoses Primary osteoarthritis of both hips Primary osteoarthritis of both hips Nico Campbell [facility] [place] [address] [facility] [address] [place] [phone] Referral ID Status Reason Start Date Expiration Date V isits Requested Visits Authorized [id number] Closed Consult, Test & Treat 02/18/2019 02/18/2020 1 1 Encounter Details Date Type Department Care Team (Latest Contact Info) Description 02/18/2019 4:00 PM EDT Office [place] [address] [facility] [place] [address] Ankylosing spondylitis, unspecified site of spine (Primary [...] Follow-up Visit PCP: Marcio Devlin DO [address] [place] [address] Rheumatological History: 1. UC associated Ankylosing Spondylitis [...] -Continue current meds: 1) Humira 40 mg [id number] 2) SZS 1000 mg BID -Check labs [...] Hospital Encounter Non-Invasive Cardiology Lab [place] [phone] Arrived 04/29/2024 9:50 AM EDT Appointment MRI at [place] [address] Luis Alfredo Velazquez MD [facility] [place] [address] 04/29/2024 9:50 AM EDT Appointment MRI at [place] [address] Luis Alfredo Velazquez MD [facility] [address] 06/07/2024 2:30 PM EDT TH Visit (TeleHealth) [place] [address] Dajuan Rachel MD [facility] [place] [address] 07/02/2024 2:00 PM EDT Appointment Non-[place] [address] Luis Alfredo Velazquez MD [facility] [place] [address] 07/02/2024 4:00 PM EDT Office Visit Cardiology at [address] [address] Mars Green PA [facility] [address] [place] [place], [place] [address] 07/02/2024 4:40 PM EDT Office Visit Cardiology at [address] [address] Luis Alfredo Velazquez MD [facility] [place] [address] Scheduled Referrals Name Type Priority Associated Diagnoses [...] (ANC) 3.79 1.70 - 6.10 x10(3)/mc L [facility] Lymphocytes % 42.7 % [facility] Lymphocytes Abs 3.8(H) 0.9 - 3.2 x10(3)/[facility] LABORATORY Monocytes % 10.8 % [facility] Monocyte Abs 1.0(H) 0.3 - 0.9 x10(3)/[facility] LABORATORY Eosinophils % 2.6 % [facility] Eosinophils Abs 0.2 0.0 - 0.4 x10(3)/[facility] LABORATORY Basophils % 0.6 % [facility] Basophils Abs 0.0 0.0 - 0.1 x10(3)/[facility] LABORATORY Immature Gran % 0.20 % [facility] Comment: Immature granulocytes(IG's)percentage and absolute count will include metamyelocytes, myelocytes, and promyelocytes. Blood smears from CBCs yielding IG's will be scanned manually for concordance. If this scan disagrees with the automated IG or if promyelocytes are noted, a manual differential will be performed. Melanie Gran Abs 0.02 0.00 - 0.04 x10(3)/[facility] LABORATORY Blood specimen (specimen) 02/18/2019 5:18 PM EDT 02/18/2019 5:21 PM EDT Narrative Resulting Agency Comment Spec In Lab Nico Campbell DO HEMATOLOGY ORDERABLE S [facility] [place] [address] * Hemogram (02/18/2019 5:18 PM EDT) WBC 8.8 4.0 - 9.5 x10(3)/[facility] LABORATORY RBC 4.71 4.00 - 5.21 x10(6)/[facility] LAB[facility]ATORY Hemoglobin 14.4 11.7 - 15.5 gm/dL [facility] Hematocrit 44.3 35.7 - 45.8 % [facility] MCV 94.1 82.6 - 94.4 fL [facility] MCH 30.6 27.1 - 32.0 pg [facility] MCHC 32.5 31.7 - 35.0 gm/dL [facility] Platelets 210 145 - 357 x10(3)/[facility] LABORATORY RDWSD 44.7 37.0 - 46.0 [facility]OR[facility]ORY RDWCV 13.0 11.5 - 14.1 % [facility] MPV 10.4 7.6 - 12.9 [facility] LABORATORY nRBC % Auto 0.0 % [facility] nRBC Abs Auto 0.000 0.000 - 0.000 x10(3)/[facility] LABORATORY Blood specimen (specimen) 02/18/2019 5:18 PM EDT 02/18/2019 5:21 PM EDT Narrative Resulting Agency Comment Spec In Lab Nico Campbell DO HEMATOLOGY ORDERABLE S [facility] [place] [address] * (ABNORMAL) Comprehensive metabolic panel (non-fasting) (02/18/2019 5:18 PM EDT) Glucose Lvl 112 65 - 199 mg/dL [facility] Comment:Diabetes: >=200 mg/d L plus symptoms BUN 20(H) 8 - 18 mg/dL [facility] Creatinine 0.91 0.70 - 1.20 mg/dL [facility] Sodium 144 135 - 145 mmol/L [facility] Potassium 4.4 3.5 - 5.0 mmol/L [facility] Comment: Please note: ??Patients with WBC >100,000 may have falsely elevated Potassium levels. ??For accurate Potassium quantification in these patients send serum separator tube (gold top) for subsequent determinations. ??Contact the Clinical Chemistry Laboratory if there are any questions. Chloride 107 98 - 107 mmol/L [facility] CO2 27 22 - 31 mmol/L [facility] Anion Gap 10 5 - 15 mmol/L [facility] Calcium 9.9 8.5 - 10.5 mg/dL [facility] Total Protein 7.9 6.1 - 8.0 gm/dL [facility] Albumin 4.1 3.2 - 5.2 gm/dL [facility] AST 23 0 - 30 unit/L [facility] ALT 19 0 - 30 unit/L [facility] Alk Phos 96 40 - 104 unit/L [facility] Total Bilirubin 0.2 0.2 - 1.3 mg/dL [facility] Estimated GFR 70 >=60 mL/min/1. 73 m?? [facility] Comment: The eGFR was calculated using the CKD-EPI equation. As with all creatinine based estimates of kidney function, eGFR values calculated with the CKD-EPI equation are not accurate in patients with acute kidney failure, extremes of body mass or the acutely ill. http://Voice Of TV/[facility] CITY[place] eGFR 81 >=60 mL/min/1. 73 m?? [facility] Comment: The eGFR was calculated using the CKD-EPI equation. As with all creatinine based estimates of kidney function, eGFR values calculated with the CKD-EPI equation are not accurate in patients with acute kidney failure, extremes of body mass or the acutely ill. http://Voice Of TV/DHMCnkf Blood specimen (specimen) 02/18/2019 5:18 PM EDT 02/18/2019 5:21 PM EDT Narrative Resulting Agency Comment Spec In Lab Oc Gresham MD CHEMISTRY ORDERABLES [facility] [place] [address] documented in this encounter Visit Diagnoses Diagnosis Ankylosing spondylitis, unspecified site of spine- Primary Primary osteoarthritis of both hips Primary localized osteoarthrosis, pelvic region and thigh documented in this encounter Care Teams Long Wall Mining Machine Tender Relationship Specialty Start Date End Date Marcio Devlin DO [address] [place] [address] PCP - General Family Medicine 11/11/17 documented as of this encounter
--- OUTSIDE RECORDS SUMMARY | 2024-04-16 00:28 | XMS_ITS | Encounter Summary ---
Author Organization [facility] Address [facility] [place] [address] Care Team Providers Care Seam Rubbing Machine Operator Name Role Phone Marcio Devlin DO Primary Care Provider [phone] Reason for Visit * Reason Comments Post Op Encounter Details Date Type Department Care Team (Late st Contact Info) Description 04/21/2018 1:40 PM EDT Office Visit Obstetrics and Gynecology at [facility] [place] [phone] Liang Fong MD [facility] [place] [address] Post-operative state (Primary Dx) Social History Tobacco [...] with: Event Presence Event Presence NONE n/a [place] Walking Cold Weather Running Anticipation of going [...] test (empty supine): negative External Genitalia: Vulva, [place]'s and [place] glands normal, urethra without tenderness [...] AM EDT Hospital Encounter Non-Invasive [place] [phone] Arrived 04/29/2024 9:50 AM EDT [place] [address] Luis Alfredo Velazquez MD [facility] [place] [address] 04/29/2024 9:50 AM [place] [phone] Luis Alfredo Velazquez MD [facility] [address] 06/07/2024 2:30 PM EDT TH Visit (TeleHealth) Gastroenterology at [place] [phone] Dajuan Rachel MD [facility] GASTROENTEROLOGY [place], [place] [phone] 07/02/2024 2:00 PM EDT Appointment Non-[place] [phone] Luis Alfredo Velazquez MD [facility] [place] [place] [address] 07/02/2024 4:00 PM EDT Office [place] [address] Mars Green PA [facility] [place] [place] [address] 07/02/2024 4:40 PM EDT Office Visit Cardiology at [address] [phone] Luis Alfredo Velazquez MD [facility] [place] [place] [address] documented as of this encounter Visit Diagnoses Diagnosis Post-operative state- Primary Other postprocedural status documented in this encounter Care Teams Seam Rubbing Machine Operator Relationship Specialty Start Date End Date Marcio Devlin DO [address] [place] [address] PCP - General Family Medicine 11/11/17 documented as of this encounter
--- OUTSIDE RECORDS SUMMARY | 2024-04-16 00:28 | XMS_ITS | Encounter Summary ---
Author Organization [facility] [place] [address] Care Team Providers Care Glory Hole Tender Name Role Phone Marcio Devlin DO Primary Care Provider [phone] Encounter Details Date Type Department Care Team (Late st Contact Info) Description 11/11/2017 3:30 PM EST Office [place] [phone] Nico Campbell [facility] [place] [address] Ankylosing spondylitis, unspecified site of spine (Primary [...] current medication regimen is Humira 40 mg [id number] and Sulfasalazine 500mg BID-both of which she [...] AM EDT Hospital Encounter Non-Invasive [place] [address] Arrived 04/29/2024 9:50 AM EDT Appointment MRI at [place] [phone] Luis Alfredo Velazquez MD [facility] [place] [address] 04/29/2024 9:50 AM EDT Appointment MRI at [address] Luis Alfredo Velazquez MD [facility] [place] [address] 06/07/2024 2:30 PM EDT TH Visit (TeleHealth) Gastroenterology at [address] Dajuan Rachel MD [facility] [place] [address] 07/02/2024 2:00 PM EDT Appointment Non-Invasive Cardiology Lab [address] Luis Alfredo Velazquez MD [facility] [place] [address] 07/02/2024 4:00 PM EDT Office Visit Cardiology at [place] [phone] Mars Green PA [facility] [place] [address] 07/02/2024 4:40 PM EDT Office Visit Cardiology at [place] [phone] Luis Alfredo Velazquez MD [facility] [place] [address] documented as of this encounter Procedures Procedure [...] 4:11 PM EST) Neutrophils % 48.1 % [facility] Neutr Abs (ANC) 4.20 1.70 - 6.10 x10(3)/[facility] LABORATORY Lymphocytes % 38.8 % [facility] Lymphocytes Abs 3.4(H) 0.9 - 3.2 x10(3)/[facility] LABORATORY Monocytes % 10.3 % [facility] Monocyte Abs 0.9 0.3 - 0.9 x10(3)/[facility] LABORATORY Eosinophils % 1.9 % [facility] Eosinophils Abs 0.2 0.0 - 0.4 x10(3)/[facility] LABORATORY Basophils % 0.6 % [facility] Basophils Abs 0.0 0.0 - 0.1 x10(3)/[facility] LABORATORY Immature Gran % 0.30 % [facility] Comment: Immature granulocytes(IG's)percentage and absolute count will include metamyelocytes, myelocytes, and promyelocytes. Blood smears from CBCs yielding IG's will be scanned manually for concordance. If this scan disagrees with the automated IG or if promyelocytes are noted, a manual differential will be performed. Melanie Gran Abs 0.03 0.00 - 0.04 x10(3)/ L [facility] Blood specimen (specimen) 11/11/2017 4:11 PM EST 11/11/2017 4:32 PM EST Narrative Resulting Agency Comment Spec In Lab Nico Shannan TREJO HEMATOLOGY ORDERABLE S [facility] [place] [address] * (ABNORMAL) Hemogram (11/11/2017 4:11 PM EST) WBC 8.7 4.0 - 9.5 x10(3)/[facility] LABORATORY RBC 5.25(H) 4.00 - 5.21 x10(6)/[facility] LABORATORY Hemoglobin 16.5(H) 11.7 - 15.5 gm/dL [facility] Hematocrit 47.4(H) 35.7 - 45.8 % [facility] MCV 90.3 82.6 - 94.4 [facility] LABORATORY MCH 31.4 27.1 - 32.0 pg [facility] MCHC 34.8 31.7 - 35.0 gm/dL [facility] Platelets 193 145 - 357 x10(3)/[facility] LABORATORY RDWSD 42.3 37.0 - 46.0 [facility] LABORATORY RDWCV 13.0 11.5 - 14.1 % [facility] MPV 11.2 7.6 - 12.9 [facility] LABORATORY nRBC % Auto 0.0 % [facility] nRBC Abs Auto 0.000 0.000 - 0.000 x10(3)/[facility] LABORATORY Blood specimen (specimen) 11/11/2017 4:11 PM EST 11/11/2017 4:32 PM EST Narrative Resulting Agency Comment Spec In Lab Nico Shannan TREJO HEMATOLOGY ORDERABLE S [facility] [place] [address] * (ABNORMAL) Comprehensive metabolic panel (non-fasting) (11/11/2017 4:11 PM EST) Glucose Lvl 86 65 - 199 mg/dL [facility] Comment:Diabetes: >=200 mg/d L plus symptoms BUN 15 8 - 18 mg/dL [facility] Creatinine 0.81 0.70 - 1.20 mg/dL [facility] Sodium 144 135 - 145 mmol/L [facility] [...] questions. Chloride 100 98 - 107 mmol/L [facility] CO2 30 22 - 31 mmol/L [facility] Anion Gap 14 5 - 15 mmol/L [facility] Calcium 9.7 8.5 - 10.5 mg/dL [facility] Total Protein 7.5 6.1 - 8.0 gm/dL [facility] Albumin 4.2 3.2 - 5.2 gm/dL [facility] AST 43(H) 0 - 30 unit/L [facility] ALT 57(H) 0 - 30 unit/L [facility] Alk Phos 94 40 - 104 unit/L [facility] Total Bilirubin 0.3 0.2 - 1.3 mg/dL [facility] Estimated GFR >60 >=60 [facility] Comment: The reported eGFR should be multiplied by 1.2 for patients. The MDRD is not an appropriate measure of renal function for patients with body mass extremes or in patients with acute kidney failure. http://Mowjow.Auxmoney/DHnkdep http://Kynded/DHMCnkf Blood specimen (specimen) 11/11/2017 4:11 PM EST 11/11/2017 4:32 PM EST Narrative Resulting Agency Comment Spec In Lab Truong Nick MD CHEMISTRY ORDERABLES [facility] [place] [address] documented in this encounter Visit Diagnoses Diagnosis Ankylosing spondylitis, unspecified site of spine- Primary documented in this encounter Care Teams Glory Hole Tender Relationship Specialty Start Date End Date Marcio Devlin DO [address] [facility] [place] [address] PCP - General Family Medicine 11/11/17 documented as of this encounter
--- OUTSIDE RECORDS SUMMARY | 2024-04-16 00:28 | XMS_ITS | Encounter Summary ---
Author Organization [facility] [place] [address] Care Team Providers Care Casting Cleaner Name Role Phone Marcio Devlin DO Primary Care Provider [phone] Encounter Details Date Type Department Care Team (Late st Contact Info) Description 02/24/2018 2:40 PM EDT Clinical [place] [address] Social History Tobacco Use Types [...] AM EDT Hospital Encounter Non-Invasive Cardiology Lab [place] [phone] Arrived 04/29/2024 9:50 AM EDT Appointment MRI at [address]1000 Luis Alfredo Velazquez MD [facility] [place] [address] 04/29/2024 9:50 AM EDT Appointment MRI at [place] [phone] Luis Alfredo Velazquez MD [facility] [place] [address] 06/07/2024 2:30 PM EDT TH Visit (TeleHealth) Gastroenterology at [place] [phone] Dajuan Rachel MD [facility] [place] [address] 07/02/2024 2:00 PM EDT Appointment Non-Invasive [place] [phone] Luis Alfredo Velazquez MD [facility] [place] [address] 07/02/2024 4:00 PM EDT Office Visit Cardiology at [place] [phone] Mars Green PA [facility] [place] [place] [address] 07/02/2024 4:40 PM EDT Office Visit Cardiology at [address] [address] Luis Alfredo Velazquez MD [facility] [place] [address] documented as of this encounter Visit Diagnoses Not on filedocumented in this encounter Care Teams Casting Cleaner Relationship Specialty Start Date End Date Marcio Devlin DO [address] [place] [address] [place] [address] PCP - General Family Medicine 11/11/17 documented as of this encounter
--- OUTSIDE RECORDS SUMMARY | 2024-04-16 00:28 | XMS_ITS | Encounter Summary ---
Author Organization [facility] Address [facility] [place] [address] Care Team Providers Care Tobacco Sweeper Name Role Phone Marcio Devlin DO Primary Care Provider [phone] Reason for Visit * Auth/Cert Specialty Diagnoses [...] Expiration Date Visits Re quested Visits Authorized [id number] 1 1 Encounter Details Date Type Department Care Team (Late st Contact Info) Description 03/10/2018 7:42 AM EDT Anesthesia [place] [phone] Waylon Power MD [facility] [place] [address] [place], ELECTRICIAN MACHINE SHOP [address] [facility] 3B-1 [place] [address] Anesthesia Record Procedure Summary Procedure Name Responsible Anesthesiologist Anesthesia Start Time Anesthesia Stop Time HYSTERECTOMY, VAGINAL, REMOVAL TUBE(S) & OR OVARY(S) (WRVU 15.94) (Uterus) Waylon Power MD 03/10/18 0742 03/10/18 1125 Events Date Time Event Comment 03/10/2018 0728 0742 AN Verify 0742 Start 0742 An Start Data 0750 An Induction 0803 An Intubation 0810 Anesthesia Ready 0831 Break/Relief In Gracie K Todd k, LOG HAUL OPERATOR 0852 Break/Relief Out 1101 Extubation/LMA Out 1115 [...] basilic vein (medial side of arm), left; [id number]-azvhyk catheter system; 20 gauge; Lorelei Mederos; distraction, [...] Horton MD - 03/10/2018 11:35 AM EDT [facility] [place] Department of Anesthesiology Post-procedure Note Patient: Kim Funes Procedure Summary Date Anesthesia Start Anesthesia Stop Room / Location 03/10/18 0742 1125 [facility] OR [facility] MAIN OR Procedure Diagnosis Surgeon Responsible Provider HYSTERECTOMY, VAGINAL, REMOVAL TUBE(S) & OR OVARY(S) (WRVU 15.94) (N/A Uterus); COLPORRHAPHY ANTERIOR-POSTERIOR; INC CYSTOURETHROSCOPY (WRVU 14.44) (N/A ); URETHRAL SUSPENSION, SLING\FASCIA OR SYNTHETIC (WRVU 12.13) (N/A Pelvis); COLPOPEXY, VAGINAL, INTRAPERITONEAL APPROACH (WRVU 11.66) (N/A ) (UTERINE PROLAPSE, STRESS URINARY INCONTINENCE) Liang Fong MD Kendall, Geoffrey L, MD All Anesthesia Providers: Anesthesiologist: Waylon Power MD Cutting Pressman: Alexis Horton MD Most Recent Vitals: 03/10/18 1315 BP: Pulse: Resp: Temp: SpO2: 97% Pain 3 (03/10/18 1340) Patient Location: PACU/[facility] Level of Consciousness: Conscious but Sleepy Pain [...] colonoscopy 09/19/08 (Dr. Shady Luz at [facility]) for surveillance for dysplasia. Areas [...] WITH BX performed by YAQUELIN ESTRADA at [facility] ENDOSCOPY ??? PRO COLONOSCOPY, BIOPSY N/A 03/04/2017 COLONOSCOPY FLEXIBLE, WITH BX (WRVU 3.66) performed by Raúl Austin MD at [facility] ENDOSCOPY ??? PRO COLONOSCOPY, REMV LESN, SNARE 01/02/2011 COLONOSCOPY, POLYPECTOMY, REMOVAL LESION BY SNARE performed by YAQUELIN ESTRADA at [facility] ENDOSCOPY ??? PRO COLONOSCOPY, REMV LESN, SNARE N/A 03/04/2017 COLONOSCOPY, POLYPECTOMY, REMOVAL LESION BY SNARE (WRVU 4.67) performed by Raúl Austin MD at [facility] ENDOSCOPY ??? SALPINGECTOMY Social History Substance [...] products. Plan discussed with resident and attending. PAT Staff Documentation: Reason for PAT Contact: Surgeon Request Hx of Anesthesia Problem: Difficult intubation 2005; no anesthesia since. Was Patient Seen in [facility]? Yes Additional/Outside Data Requested? No Findings, Assessment and Action: Ms. Funes is a 57 y.o. year old female seen in [facility] prior to planned vaginal hysterectomy/lap sling with [...] tolerance is moderate. 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 I will alert the concrete floor installer of her hx of difficult airway so preparations can be in place ahead of her surgery. [place] APRN Pre-Admission Testing [phone] documented in this encounter Plan of Treatment Upcoming Encounters Date Type Department Care Team (Late st Contact Info) Description 04/19/2024 10:00 AM EDT Hospital Encounter Non-[place] [address] Arrived 04/29/2024 9:50 AM EDT [place] [address] Luis Alfredo Velazquez MD [facility] [place] [address] 04/29/2024 9:50 AM EDT [place] [address] Luis Alfredo Velazquez MD [facility] [place] [address] 06/07/2024 2:30 PM EDT TH Visit (TeleHealth) [place] [phone] Dajuan Rachel MD [facility] [place] [address] 07/02/2024 2:00 PM EDT Appointment Non-[place] [phone] Luis Alfredo Velazquez MD [facility] [place] [address] 07/02/2024 4:00 PM EDT Office Visit Cardiology at [address] [phone] Mars Green PA [facility] [place] [address] 07/02/2024 4:40 PM EDT Office Visit Cardiology at [address] [phone] Lusi Alfredo Velazquez MD [facility] [place] [address] documented as of this encounter Visit Diagnoses [...] mg documented in this encounter Care Teams Tobacco Sweeper Relationship Specialty Start Date End Date Marcio Devlin DO [address] [place] [address] PCP - General Family Medicine 11/11/17 documented as of this encounter
--- OUTSIDE RECORDS SUMMARY | 2024-04-16 00:28 | XMS_ITS | Encounter Summary ---
Author Organization [facility] Address [facility] [place] [address] Care Team Providers Care Production Artist Name Role Phone Marcio Devlin DO Primary Care Provider [phone] Reason for Visit * Auth/Cert Specialty Diagnoses [...] Expiration Date Visits Re quested Visits Authorized [id number] 1 1 Encounter Details Date Type Department Care Team (Latest Contact Info) Description 03/10/2018 6:02 AM EDT - 03/11/2018 8:53 AM EDT Hospital Encounter Short Stay Unit at [facility] [place] [address] Liang Fong MD [facility] [place] [address] Uterovaginal prolapse, incomplete; Urinary, incontinence, stress female [...] Kim Funes Patient Age: 57 y.o. Language: Bangladeshi Race: White Ethnicity: Not nor Admit date: 03/10/2018 Discharge date and time: 03/11/2018 Attending Physician: Liang Fong MD Discharge Physician: Liang Fong MD Follow-up Recommendations for Providers: Follow up appointment: 04/21/18 at 1:[address] Fong Inpatient Provider Contact Information: Female Pelvic Medicine and Reconstructive Surgery Department of Obstetrics and Gynecology [phone] Discharge Diagnoses (Hospital Problems) and Secondary Diagnoses [...] secondary to snk spond so was referred [facility] [place] to evaluate. Hospital Course: Kim [...] 1000 mg Refills: 0 SUMAtriptan 20 mg/actuation [place] Commonly known as: IMITREX 1 spray as [...] in with the urogynecology office nurse at [phone] to review how your bladder is working and when the catheter use can be discontinued. For problems or concerns related to this hospitalization call: [phone] weekdays, or [phone] weekends or nights. Call your doctor if [...] Liang Fong MD Obstetrics and Gynecology at [place] [phone] 08/31/2018 11:00 AM Nico Campbell DO Rheumatology at [place] [phone] Discharge References/Attachments None Provider Contact Information: Marcio Devlin DO [phone] documented in this encounter Discharge Instructions * [...] in with the urogynecology office nurse at [phone] to review how your bladder is working and when the catheter use can be discontinued. For problems or concerns related to this hospitalization call: [phone] weekdays, or [phone] weekends or nights. Call your doctor if [...] by mouth daily. SUMAtriptan (IMITREX) 20 mg/actuation [place], Non-Aerosol 1 spray as needed. 11/03/2017 metFORMIN [...] output FEK: D/c IVF. Tolerating PO intake. SOAPING DEPARTMENT SUPERVISOR: Final pathology report pending. -Follow up in [...] intake. -Wean IVF when tolerating full diet SOAPING DEPARTMENT SUPERVISOR: Final pathology report pending. -Follow up in clinic 4-6 weeks postoperatively Endocrine: DM II - sensitive SSI ordered ID: Afebrile, received prophylactic antibiotics preop, no evidence of infection -continue to monitor vital signs. Prophylaxis: SCDs while in bed, encourage ambulation, incentive spirometry Dispo: Anticipate discharge tomorrow Code Status: Full Code Jason Stapleton MD PGY-2 03/10/2018 Gynecology Service Pager: [phone] ([phone] [phone]), otherwise page [phone] * Aleta Croft, RN - 03/10/2018 11:25 AM EDT Pt arrived from OR to PACU. Placed on monitor and alarms adjusted. Received report.1225: infor visit. documented in this encounter H&P Notes * Victorina Becker - 03/10/2018 6:30 AM EDT Inpatient MUSIC CATALOGUER - Admission Interval Note I have reviewed [...] Fong MD - 03/10/2018 11:21 AM EDT [facility] Operative Note Patient Name: Kim Funes : [id number] MR#: [id number] Case Date: 03/10/2018 Surgeon: Surgeon(s) and Role: [...] the cervical portio with 1% lidocaine with [id number] Epinephrine solution. A weighted speculum had been [...] defect, and this was reapproximated with a lsvpdr-pi-dsgbe 0Vicryl suture in interrupted fashion. After the [...] Operative Note Patient Name: Kim Funes : [id number] MR#: [id number] Case Date: 03/10/2018 Surgeon: Surgeon(s) and Role: [...] AM EDT Hospital Encounter [place] [address] Arrived 04/29/2024 9:50 AM EDT Appointment MRI at [place] [address] Luis Alfredo Velazquez MD [facility] [place] [address] 04/29/2024 9:50 AM EDT Appointment MRI at [place] [phone] Luis Alfredo Velazquez MD [facility] [place] [address] 06/07/2024 2:30 PM EDT TH Visit (TeleHealth) Gastroenterology at [place] [address] aDjuan Rachel MD [facility] [place] [address] 07/02/2024 2:00 PM EDT Appointment [place] [address] Luis Alfredo Velazquez MD [facility] [place] [address] 07/02/2024 4:00 PM EDT Office Visit Cardiology at [address] [address] Mars Green [place] [facility] [place] [address] 07/02/2024 4:40 PM EDT Office Visit Cardiology at [address] [phone] Luis Alfredo Velazquez MD [facility] [place] [address] documented as of this encounter Procedures Procedure Name Priority Date/Time Associated Diagnosis Comments CHAIR CAR DRIVER SCAN 03/12/2018 12:00 AM EDT POCT GLUCOSE [...] in this encounter Results * SCAN DOC: CHAIR CAR DRIVER (03/12/2018 12:00 AM EDT) Anatomical Region Laterality Modality Other Narrative 03/12/2018 12:00 AM EDT Ordered by an unspecified provider. Scanning Provider MEDIA MGR SCAN EXT O RDR/RSLT * POCT Glucose (03/11/2018 7:16 AM EDT) POC Glucose 121 65 - 199 mg/dL [facility] Comment: Supplemental ranges: <140 mg/dL before meals <180 mg/dL all other times of the day Blood specimen (specimen) 03/11/2018 7:16 AM EDT 03/11/2018 7:16 AM EDT Liang Fong MD POINT OF CARE TEST O IRMA Performing Organization Address City/[facility]/ZIP Co de Phone Number [facility] [place] [address] * POCT Glucose (03/10/2018 9:20 PM EDT) POC Glucose 107 65 - 199 mg/dL [facility] Comment: Supplemental ranges: <140 mg/dL before meals <180 mg/dL all other times of the day Blood specimen (specimen) 03/10/2018 9:20 PM EDT 03/10/2018 9:20 PM EDT Liang Fong MD POINT OF CARE TEST O IRMA [facility] [place] [address] * POCT Glucose (03/10/2018 4:39 PM EDT) POC Glucose 110 65 - 199 mg/dL [facility] Comment: Supplemental ranges: <140 mg/dL before meals <180 mg/dL all other times of the day Blood specimen (specimen) 03/10/2018 4:39 PM EDT 03/10/2018 4:39 PM EDT Liang Fong MD POINT OF CARE TEST O IRMA Performing Organization Address [facility] Co de Phone Number [facility] [place] [address] * POCT Glucose (03/10/2018 11:23 AM EDT) POC Glucose 137 65 - 199 mg/dL [facility] Comment: Supplemental ranges: <140 mg/dL before meals <180 mg/dL all other times of the day Blood specimen (specimen) 03/10/2018 11:23 AM EDT 03/10/2018 11:23 AM EDT Liang Fong MD POINT OF CARE TEST O IRMA Performing Organization Address [facility] Co de Phone Number [facility] [place] [address] * Specimen to Pathology (03/10/2018 9:22 AM EDT) AP Specimen 03/10/2018 9:22 AM EDT 03/10/2018 11:02 AM EDT Narrative [facility] - 03/10/2018 11:03 AM EDT Specimen requisition ordered. ??Separate Pathology report to follow Resulting Agency Comment Spec In Lab Liang Fong MD PATHOLOGY/CYTOLOGY Clotilde SOLIS Performing Organization Address [facility] Co de Phone Number [facility] [place] [address] * Surgical Pathology Report (03/10/2018 9:00 AM EDT) FINAL DIAGNOSIS (AP) [id number] ? Location: SSU; SS14; A The signing [...] Marc Hayes Verified: ??03/16/2018 ?Pathologist Performed at: ??-[facility] Dept. of Pathology, [place], [place] CLINICAL INFORMATION Specimen Submitted: A - [...] nodules. (R5) nsm 03/16/2018 2:03 PM EDT [facility] Uterine Corpus 03/10/2018 9: 00 AM EDT 03/10/2018 9:00 AM EDT Liang Fong MD PATHOLOGY/CYTOLOGY O RDERADARLEEN [facility] [place] [address] * POCT Glucose (03/10/2018 6:28 AM EDT) POC Glucose 107 65 - 199 mg/dL [facility] Comment: Supplemental ranges: <140 mg/dL before meals <180 mg/dL all other times of the day Blood specimen (specimen) 03/10/2018 6:28 AM EDT 03/10/2018 6:28 AM EDT Liang Fong MD POINT OF CARE TEST O RDERABLES [facility] [place] [address] documented in this encounter Visit Diagnoses Diagnosis [...] Routine 1340 (Given - Provider: Chantell Moy, FRANCESCA)2023 (Given - Provider: Carmencita Waters, RN) 0824 (Given - Provider: Chantell Moy, [...] dose on Fri03/11/18 at 0900, Until Discontinued 08 (Given - Provid er: Chantell Moy RN) [...] CONTINUOUS, Starting on Fri03/10/18 at 1145, Until 6/27/18 at 0616 0742 (New Bag - Provider: [...] Routine documented in this encounter Care Teams Production Artist Relationship Specialty Start Date End Date Marcio Devlin DO [address] [place] [address] PCP - General Family Medicine 11/11/17 documented as of this encounter
--- OUTSIDE RECORDS SUMMARY | 2024-04-16 00:28 | XMS_ITS | Encounter Summary ---
Author Organization [facility] [place] [address] Care Team Providers Care Nca Certified Concierge Name Role Phone Marcio Devlin DO Primary Care Provider [phone] Encounter Details Date Type Department Care Team (Late st Contact Info) Description 02/24/2018 4:15 PM EDT Office [place] [address] Nico Campbell [facility] [place] [address] Ankylosing spondylitis, unspecified site of spine (Primary [...] Marcio Devlin DO [address] [place] [address] Rheumatological History: 1. UC associated Ankylosing Spondylitis [...] current medication regimen is Humira 40 mg t2zipwh and Sulfasalazine 500mg BID-both of which she [...] to be done when she comes into [facility] for labs/tests -Will continue current medication regimen: [...] AM EDT Hospital Encounter Non-Invasive [place] [address] Arrived 04/29/2024 9:50 AM EDT [place] [address] Luis Alfredo Velazquez MD [facility] [place] [address] 04/29/2024 9:50 AM EDT Appointment MRI at [place] [address] Luis Alfredo Velazquez MD [facility] [place] [address] 06/07/2024 2:30 PM EDT TH Visit (TeleHealth) Gastroenterology at [place] [address] Dajuan Rachel MD [facility] [address] 07/02/2024 2:00 PM EDT Appointment Non-Invasive Cardiology Lab [place] [address] Luis Alfredo Velazquez MD [facility] [place] [address] 07/02/2024 4:00 PM EDT Office Visit Cardiology at [place] [address] Mars Green [place] [facility] [place] [address] 07/02/2024 4:40 PM EDT Office Visit Cardiology at [place] [address] Luis Alfredo Velazquez MD [facility] [place] [address] documented as of this encounter Visit Diagnoses Diagnosis Ankylosing spondylitis, unspecified site of spine- Primary documented in this encounter Care Teams Nca Certified Concierge Relationship Specialty Start Date End Date Marcio Devlin DO [address] [place] [address] PCP - General Family Medicine 11/11/17 documented as of this encounter
--- OUTSIDE RECORDS SUMMARY | 2024-04-16 00:29 | XMS_ITS | Encounter Summary ---
Author Organization [facility] [place] [address] Care Team Providers Care Male Model Name Role Phone Marcio Carranza MD Primary Care Provider [phone] Encounter Details Date Type Department Care Team (Latest Contact Info) Description 03/04/2017 7:37 AM EDT - 03/04/2017 11:00 AM EDT Hospital Encounter [place] [phone] Raúl Austin MD [facility] [place] [address] Discharge Disposition: Home Social History Tobacco Use [...] to be checked. Friday-Friday Same Day Endo [phone] 7a-8p Otherwise contact [phone] and ask to speak to the v belt inspector environmental studies department chair Follow up care is a hernandez part [...] Austin MD - 03/04/2017 9:36 AM EDT [facility] Operative Note Patient Name: Kim Funes : [id number] MR#: [id number] Case Date: 03/04/2017 Surgeon: Surgeon(s) and Role: [...] AM EDT Hospital Encounter Non-[place] [address] Arrived 04/29/2024 9:50 AM EDT Appointment MRI at [place] [address] Luis Alfredo Velazquez MD [facility] [place] [address] 04/29/2024 9:50 AM EDT Appointment MRI at [place] [address] Luis Alfredo Velazquez MD [facility] [place] [address] 06/07/2024 2:30 PM EDT TH Visit (TeleHealth) Gastroenterology at [place] [address] Dajuan Rachel MD [facility] [address] 07/02/2024 2:00 PM EDT Appointment Non-Invasive Cardiology Lab [address] Luis Alfredo Velazquez MD [facility] [place] [address] 07/02/2024 4:00 PM EDT Office Visit Cardiology at [place] [phone] [place], [place] [facility] [place] [address] 07/02/2024 4:40 PM EDT Office Visit Cardiology at [address] [address] Luis Alfredo Velazquez MD [facility] [place] [address] documented as of this encounter Procedures Procedure [...] (03/04/2017 11:01 AM EDT) FINAL DIAGNOSIS (AP) [id number] ?Location: 4T; [facility]; A The signing pathologist has (i) [...] ng: (T1) ??sns 03/07/2017 4:22 PM EDT [facility] GI Biopsy 03/04/2017 11:0 1 AM EDT 03/04/2017 11:01 AM EDT GI Biopsy 03/04/2017 11:0 1 AM EDT 03/04/2017 11:01 AM EDT GI Biopsy 03/04/2017 11:0 1 AM EDT 03/04/2017 11:01 AM EDT GI Biopsy 03/04/2017 11:0 1 AM EDT 03/04/2017 11:01 AM EDT GI Biopsy 03/04/2017 11:0 1 AM EDT 03/04/2017 11:01 AM EDT GI Biopsy 03/04/2017 11:0 1 AM EDT 03/04/2017 11:01 AM EDT Raúl Austin MD PATHOLOGY/CYTOLOGY O IRMA Performing Organization Address City/[facility]/ZIP Co de Phone Number [facility] [place] [address] * Specimen to Pathology (surgical or derm) (03/04/2017 9:39 AM EDT) AP Specimen 03/04/2017 9:39 AM EDT 03/04/2017 9:39 AM EDT Narrative [facility] - 03/04/2017 9:39 AM EDT Specimen requisition ordered. ??Separate Pathology report to follow Raúl Austin MD PATHOLOGY/CYTOLOGY O IRMA [facility] [place] [address] * Specimen to Pathology (surgical or derm) (03/04/2017 9:39 AM EDT) AP Specimen 03/04/2017 9:39 AM EDT 03/04/2017 9:39 AM EDT Narrative [facility] - 03/04/2017 9:39 AM EDT Specimen requisition ordered. ??Separate Pathology report to follow Raúl Austin MD PATHOLOGY/[place] [address] * Specimen to Pathology (surgical or derm) (03/04/2017 9:39 AM EDT) AP Specimen 03/04/2017 9:39 AM EDT 03/04/2017 9:39 AM EDT Narrative [facility] - 03/04/2017 9:39 AM EDT Specimen requisition ordered. ??Separate Pathology report to follow Raúl Austin MD PATHOLOGY/CYTOLOGY O IRMA Performing Organization Address [facility]/[place] [address] * Specimen to Pathology (surgical or derm) (03/04/2017 9:39 AM EDT) AP Specimen 03/04/2017 9:39 AM EDT 03/04/2017 9:39 AM EDT Narrative [facility] - 03/04/2017 9:39 AM EDT Specimen requisition ordered. ??Separate Pathology report to follow Raúl Austin MD PATHOLOGY/CYTOLOGY O IRMA Performing Organization Address City/[facility]/ZIP Co de Phone Number [facility] [place] [address] * Specimen to Pathology (surgical or derm) (03/04/2017 9:39 AM EDT) AP Specimen 03/04/2017 9:39 AM EDT 03/04/2017 9:39 AM EDT Narrative [facility] - 03/04/2017 9:39 AM EDT Specimen requisition ordered. ??Separate Pathology report to follow Raúl Austin MD PATHOLOGY/[place] [address] * Specimen to Pathology (surgical or derm) (03/04/2017 9:39 AM EDT) AP Specimen 03/04/2017 9:39 AM EDT 03/04/2017 9:39 AM EDT Narrative [facility] - 03/04/2017 9:39 AM EDT Specimen requisition ordered. ??Separate Pathology report to follow Raúl Austin MD PATHOLOGY/CYTOLOGY O IRMA [facility] [place] [address] * COLONOSCOPY (03/04/2017 7:44 AM EDT) COLONOSCOPY [facility] Procedure Date: 03/04/2017 7:44 AM ? Patient Name: Kim Funes ? Date of : 1960 ? Age: 56 ? Order #: [id number] ? Instrument Name: [id number] ? Procedure: ? Colonoscopy Indications: ? High [...] preparation was evaluated using ? the BBPS ([place] Bowel Preparation ? Scale) with scores of: [...] RN) documented in this encounter Care Teams Male Model Relationship Specialty Start Date End Date Marcio Carranza MD [address] [place] [address] PCP - General 08/07/10 11/10/17 documented as of this encounter
--- OUTSIDE RECORDS SUMMARY | 2024-04-16 00:29 | XMS_ITS | Encounter Summary ---
Author Organization [facility] Address [facility] [place] [address] Care Team Providers Care Registered Veterinary Technician Name Role Phone Marcio Carranza MD Primary Care Provider [phone] Encounter Details Date Type Department Care Team (Late st Contact Info) Description 06/03/2014 Telephone Dermatology at [facility] [address] [place] [address] July Pack MD [facility] DR AL[address] [place] [address] Social History Tobacco Use Types Packs/Day Years [...] Miscellaneous Notes * Telephone Encounter - Olivia Bell - 06/09/2014 9:52 AM EDT Left a [...] AM EDT Hospital Encounter Non-[place] [address] Arrived 04/29/2024 9:50 AM [place] [address] Luis Alfredo Velazquez MD [facility] [place] [address] 04/29/2024 9:50 AM [place] [address] Luis Alfredo Velazquez MD [facility] [place] [address] 06/07/2024 2:30 PM EDT TH Visit (TeleHealth) Gastroenterology at [place] [phone] Dajuan Rachel MD [facility] [place] [address] 07/02/2024 2:00 PM EDT Appointment Non-[place] [address] Luis Alfredo Velazquez MD [facility] [place] [address] 07/02/2024 4:00 PM EDT Office Visit Cardiology at [address] [address] [place] [facility] [place] [address] 07/02/2024 4:40 PM EDT Office Visit Cardiology at [address] [address] Luis Alfredo Velazquez MD [facility] [place] [address] documented as of this encounter Visit Diagnoses Not on filedocumented in this encounter Care Teams Registered Veterinary Technician Relationship Specialty Start Date End Date Marcio Carranza MD [address] [place] [address] PCP - General 08/07/10 11/10/17 documented as of this encounter
--- OUTSIDE RECORDS SUMMARY | 2024-04-16 00:29 | XMS_ITS | Encounter Summary ---
Author Organization [facility] Address [facility] [place] [address] Care Team Providers Care Foot Specialist Name Role Phone Marcio Carranza MD Primary Care Provider [phone] Reason for Visit * Reason Comments Follow-up Encounter Details Date Type Department Care Team (Late st Contact Info) Description 09/26/2014 3:30 PM EST Follow-Up Dermatology at [facility] [address] [place] [phone] July Pack MD [facility] [address] [place] [address] Resolved condition, follow-up; Erythema nodosum; Psoriasis Discharge [...] supervision with direct supervision immediately available. (definition: [facility] GME Policy Statement on Graduate Medical Education, [...] encounter. July Pack MD Resident in Dermatology [facility] staff syrup maker: Ruy Neff MD Section of Dermatology [facility] documented in this encounter Plan of Treatment Upcoming Encounters Date Type Department Care Team (Late st Contact Info) Description 04/19/2024 10:00 AM EDT Hospital Encounter Non-Invasive Cardiology Lab [address] Arrived 04/29/2024 9:50 AM EDT Appointment MRI at [place] [phone] Luis Alfredo Velazquez MD [facility] [place] [address] 04/29/2024 9:50 AM [place] [address] Luis Alfredo Velazquez MD [facility] [place] [address] 06/07/2024 2:30 PM EDT TH Visit (TeleHealth) Gastroenterology at [place] [phone] Dajuan Rachel MD [facility] [place] [address] 07/02/2024 2:00 PM EDT Appointment Non[place] [address] Luis Alfredo Velazquez MD [facility] [place] [address] 07/02/2024 4:00 PM EDT Office [place] [address] Mars Green [place] [facility] [place] [address] 07/02/2024 4:40 PM EDT Office [place] [address] Luis Alfredo Velazquez MD [facility] [place] [address] documented as of this encounter Visit Diagnoses Diagnosis Resolved condition, follow-up Other follow-up examination Erythema nodosum Psoriasis Other psoriasis documented in this encounter Care Teams Foot Specialist Relationship Specialty Start Date End Date Marcio Carranza MD [address] [place] [address] PCP - General 08/07/10 11/10/17 documented as of this encounter
--- OUTSIDE RECORDS SUMMARY | 2024-04-16 00:29 | XMS_ITS | Encounter Summary ---
Author Organization [place] [address] Care Team Providers Care Foreign Broadcast Specialist Name Role Phone Marcio Carranza MD Primary Care Provider +1 [phone] Encounter Details Date Type Department Care Team (Late st Contact Info) Description 01/02/2017 1:45 PM EDT Office [place] [phone] Albert Saenz MD [facility] [place] [address] Spondyloarthritis; Ankylosing spondylitis of cervical region Social [...] EDT Hospital Encounter [place] [address] Arrived 04/29/2024 9:50 [place] [address] Luis Alfredo Velazquez MD [facility] [place] [address] 04/29/2024 9:50 AM EDT Appointment MRI at [address] Luis Alfredo Velazquez MD [facility] [place] [address] 06/07/2024 2:30 PM EDT TH Visit (TeleHealth) Gastroenterology at [address]1000 Dajuan Rachel MD [facility] [place] [address] 07/02/2024 2:00 PM EDT Appointment Non-Invasive Cardiology Lab [place] [phone] Luis Alfredo Velazquez MD [facility] [place] [address] 07/02/2024 4:00 PM EDT Office Visit Cardiology at [place] [phone] [place] PA [facility] [place] [address] 07/02/2024 4:40 PM EDT Office Visit Cardiology at [place] [phone] Luis Alfredo Velazquez MD [facility] [place] [address] documented as of this encounter Procedures Procedure [...] 2:31 PM EDT) Neutrophils % 46.5 % [facility] Neutr Abs (ANC) 3.93 1.70 - 6.10 x10(3)/ L [facility] Lymphocytes % 40.1 % [facility] Lymphocytes Abs 3.4(H) 0.9 - 3.2 x10(3)/ L [facility] Monocytes % 11.1 % [facility] Monocyte Abs 0.9 0.3 - 0.9 x10(3)/ L [facility] Eosinophils % 1.3 % [facility] Eosinophils Abs 0.1 0.0 - 0.4 x10(3)/[facility] Basophils % 0.5 % [facility] Basophils Abs 0.0 0.0 - 0.1 x10(3)/ L [facility] Immature Gran % 0.50 % [facility] Comment: Immature granulocytes(IG's)percentage and absolute count will include metamyelocytes, myelocytes, and promyelocytes. Blood smears from CBCs yielding IG's will be scanned manually for concordance. If this scan disagrees with the automated IG or if promyelocytes are noted, a manual differential will be performed. Melanie Gran Abs 0.04 0.00 - 0.04 x10(3)/ L [facility] Blood specimen (specimen) 01/02/2017 2:31 PM EDT 01/02/2017 2:36 PM EDT Narrative Resulting Agency Comment Spec In Lab [place] Sarkar II, DO HEMATOLOGY ORDER EDUAR [facility] [place] [address] * Hemogram (01/02/2017 2:31 PM EDT) WBC 8.4 4.0 - 9.5 x10(3)/[facility] RBC 4.91 4.00 - 5.21 x10(6)/[facility] Hemoglobin 15.5 11.7 - 15.5 gm/dL [facility] Hematocrit 44.7 35.7 - 45.8 % [facility] MCV 91.0 82.6 - 94.4 [facility]ORATORY MCH 31.6 27.1 - 32.0 pg [facility] MCHC 34.7 31.7 - 35.0 gm/dL [facility] Platelets 260 145 - 357 x10(3)/[facility]ORATORY RDWSD 41.6 37.0 - 46.0 [facility] RDWCV 12.6 11.5 - 14.1 % [facility] MPV 10.6 7.6 - 12.9 [facility] nRBC % Auto 0.0 % [facility] nRBC Abs Auto 0.000 0.000 - 0.000 x10(3)/[facility] Blood specimen (specimen) 01/02/2017 2:31 PM EDT 01/02/2017 2:36 PM EDT Narrative Resulting Agency Comment Spec In Lab [place] Sarkar II, DO HEMATOLOGY ORDER EDUAR Performing Organization Address City/[facility]/ZIP Co de Phone Number [facility] [place] [address] * (ABNORMAL) CRP, acute inflammation (01/02/2017 2:31 PM EDT) Pathologist [facility] CRP 5.2(H) <=4.9 mg/L [facility] Blood specimen (specimen) 01/02/2017 2:31 PM EDT 01/02/2017 2:36 PM EDT Narrative Resulting Agency Comment Spec In Lab [place] Sarkar II, DO CHEMISTRY ORDERA BLES [facility] [place] [address] * (ABNORMAL) Comprehensive metabolic panel (non-fasting) (01/02/2017 2:31 PM EDT) [facility] Glucose Lvl 117 65 - 199 mg/dL [facility] Comment:Diabetes: >=200 mg/d L plus symptoms BUN 14 8 - 18 mg/dL [facility] Creatinine 0.68(L) 0.70 - 1.20 mg/dL [facility] Comment: Please note that the pediatric reference intervals supplied above were not validated at [facility]. Results from pediatric patients should be interpreted in conjunction to the patient's age, height and muscle mass. Sodium 142 135 - 145 mmol/L [facility] Potassium 3.9 3.5 - 5.0 mmol/L [facility] Comment: Please note: ??Patients with WBC >100,000 may have falsely elevated Potassium levels. ??For accurate Potassium quantification in these patients send serum separator tube (gold top) for subsequent determinations. ??Contact the Clinical Chemistry Laboratory if there are any questions. Chloride 102 98 - 107 mmol/L [facility] CO2 30 22 - 31 mmol/L [facility] Anion Gap 10 5 - 15 mmol/L [facility] Calcium 9.5 8.5 - 10.5 mg/dL [facility] Total Protein 7.4 6.1 - 8.0 gm/dL [facility] Albumin 4.0 3.2 - 5.2 gm/dL [facility] AST 31(H) 0 - 30 unit/L [facility] ALT 34(H) 0 - 30 unit/L [facility] Alk Phos 82 40 - 104 unit/L [facility] Total Bilirubin 0.3 0.2 - 1.3 mg/dL [facility] Bili, Direct 0.1 0.0 - 0.3 mg/dL [facility] Estimated GFR >60 >=60 [facility] Comment: This estimated GFR (eGFR) [...] the following links into your internet browser. [email or web address] Blood specimen (specimen) 01/02/2017 2:31 PM EDT 01/02/2017 2:36 PM EDT Narrative Resulting Agency Comment Spec In Lab [place] Noble Mecchelllloyd II, DO CHEMISTRY ORDERA BLES [facility] [place] [address] documented in this encounter Visit Diagnoses Diagnosis Spondyloarthritis Spondylosis of unspecified site without mention of myelopathy Ankylosing spondylitis of cervical region Ankylosing spondylitis documented in this encounter Care Teams Foreign Broadcast Specialist Relationship Specialty Start Date End Date Marcio Carranza MD [address] [place] [address] PCP - General 08/07/10 11/10/17 documented as of this encounter
--- OUTSIDE RECORDS SUMMARY | 2024-04-16 00:29 | XMS_ITS | Encounter Summary ---
Author Organization Formerly [facility], [facility] [place] [address] Care Team Providers Care Rabble Furnace Tender Name Role Phone Marcio Carranza MD Primary Care Provider [phone] [phone] Reason for Visit * Reason Comments Medication Refill Encounter Details Date Type Department Care Team (Late st Contact Info) Description 12/11/2016 [place] [phone] Albert Saenz MD [facility] [place] [address] Ankylosing spondylitis of cervical region Social History [...] EDT Hospital Encounter Non-Invasive [place] [address] Arrived 04/29/2024 9:50 AM EDT Appointment MRI at [place] [address] Luis Alfredo Velazquez MD [facility] [place] [address] 04/29/2024 9:50 AM EDT Appointment MRI at [place] [address] Luis Alfredo Velazquez MD [facility] [place] [address] 06/07/2024 2:30 PM EDT TH Visit (TeleHealth) Gastroenterology at [place] [address] Dajuan Rachel MD [facility] [place] [address] 07/02/2024 2:00 PM EDT Appointment Non-Invasive Cardiology Lab [place] [address] Luis Alfredo Velazquez MD [facility] [place] [address] 07/02/2024 4:00 PM EDT Office Visit Cardiology at [place] [address] [address] [place] [facility] [place] [address] 07/02/2024 4:40 PM EDT Office Visit Cardiology at [place] [phone] Luis Alfredo Velazquez MD [facility] [place] [address] documented as of this encounter Visit Diagnoses Diagnosis Ankylosing spondylitis of cervical region Ankylosing spondylitis documented in this encounter Care Teams Rabble Furnace Tender Relationship Specialty Start Date End Date Marcio Carranza MD [address] [place] [address] PCP - General 08/07/10 11/10/17 documented as of this encounter
--- OUTSIDE RECORDS SUMMARY | 2024-04-16 00:29 | XMS_ITS | Encounter Summary ---
Author Organization Formerly [facility] [place] [address] Care Team Providers Care Cargo Handler Name Role Phone Marcio Carranza MD Primary Care Provider [phone] -[phone] Encounter Details Date Type Department Care Team (Late st Contact Info) Description 06/03/2014 Telephone [place] [phone] Cherrie Augustine LPN Social History Tobacco Use [...] called and said she was seen at [facility] today and they told her she could [...] AM EDT Hospital Encounter Non-Invasive Cardiology Lab [place] [phone] Arrived 04/29/2024 9:50 AM EDT Appointment MRI at [address] Luis Alfredo Velazquez MD [facility] [place] [address] 04/29/2024 9:50 AM EDT [place] [address] Luis Alfredo Velazquez MD [facility] [place] [address] 06/07/2024 2:30 PM EDT TH Visit (TeleHealth) [place] [address] Dajuan Rachel MD [facility] [place] [address] 07/02/2024 2:00 PM EDT Appointment Non-Invasive Cardiology Lab [place] [phone] Luis Alfredo Velazquez MD [facility] [place] [place] [address] 07/02/2024 4:00 PM EDT Office Visit Cardiology at [place] [phone] [place], [place] [facility] [place] [address] 07/02/2024 4:40 PM EDT Office Visit Cardiology at [address] [phone] Luis Alfredo Velazquez MD [facility] [place] [address] documented as of this encounter Visit Diagnoses Not on filedocumented in this encounter Care Teams Cargo Handler Relationship Specialty Start Date End Date Marcio Carranza MD [address] [facility] [place] [address] PCP - General 08/07/10 11/10/17 documented as of this encounter
--- OUTSIDE RECORDS SUMMARY | 2024-04-16 00:29 | XMS_ITS | Encounter Summary ---
Author Organization [facility] Address [facility] [place] [address] Care Team Providers Care Education Intern Name Role Phone Marcio Carranza MD Primary Care Provider +1 -[phone] Reason for Visit * Reason Onset Date Comments Medication Refill 06/06/2014 Encounter Details Date Type Department Care Team (Late st Contact Info) Description 06/06/2014 Refill Dermatology at [facility] [address] [place] [phone] July Pack MD [facility] [address] AL[place] [address] Scalp psoriasis (Primary Dx) Social History Tobacco [...] 10:23 AM EDT Fax request received form [place] requesting refill of Clobetasol solution. Patient last seen in clinic 05/17/2014 Refill prepared and forwarded to July Pack MD for approval. documented in this encounter Plan of Treatment Upcoming Encounters Date Type Department Care Team (Late st Contact Info) Description 04/19/2024 10:00 AM EDT Hospital Encounter Non-[place] [phone] Arrived 04/29/2024 9:50 AM EDT Appointment MRI at [address]1000 Luis Alfredo Velazquez MD [facility] [place] [address] 04/29/2024 9:50 AM EDT Appointment MRI at [place] [phone] Luis Alfredo Velazquez MD [facility] [place] [address] 06/07/2024 2:30 PM EDT TH Visit (TeleHealth) Gastroenterology at [place] [phone] Dajuan Rachel MD [facility] [place] [address] 07/02/2024 2:00 PM EDT Appointment Non-[place] [phone] Luis Alfredo Velazquez MD [facility] [place] [address] 07/02/2024 4:00 PM EDT Office Visit Cardiology at [address] [address] [place] [facility] [place] [address] 07/02/2024 4:40 PM EDT Office Visit Cardiology at [address] [phone] Luis Alfredo Velazquez MD [facility] [place] [address] documented as of this encounter Visit Diagnoses Diagnosis Scalp psoriasis- Primary Other psoriasis documented in this encounter Care Teams Education Intern Relationship Specialty Start Date End Date Marcio Carranza MD [address] [place] [address] PCP - General 08/07/10 11/10/17 documented as of this encounter
--- OUTSIDE RECORDS SUMMARY | 2024-04-16 00:29 | XMS_ITS | Encounter Summary ---
Author Organization [facility] Address [facility] [place] [address] Care Team Providers Care Space Control Agent Name Role Phone Marcio Carranza MD Primary Care Provider [phone] [phone] Reason for Visit * Reason Comments Psoriasis Encounter Details Date Type Department Care Team (Late st Contact Info) Description 07/26/2014 2:30 PM EST Follow-Up Dermatology at [facility] [address] [place] [address] [facility] DR [address] [place] [address] Psoriasis; Panniculitis Discharge Disposition: Home Social History [...] to call for questions or concerns. MAGAN GREGROY LPN. has performed the documentation for this encounter in the presence of and acting as a scribe for July Pack MD, Dermatology Resident I performed the above scribed service and agree with the accuracy of the documentation in this encounter. July Pack MD Resident in Dermatology [facility] Patient seen and evaluated with staff pigskin trimmer: Cara Cartagena MD Section of Dermatology [facility] documented in this encounter Plan of Treatment Upcoming Encounters Date Type Department Care Team (Late st Contact Info) Description 04/19/2024 10:00 AM EDT Hospital Encounter Non-Invasive Cardiology Lab [place] [address] Arrived 04/29/2024 9:50 AM EDT Appointment MRI at [place] [address] [address] [facility] [address] 04/29/2024 9:50 AM EDT Appointment MRI at [place] [address] [address] [facility] [address] 06/07/2024 2:30 PM EDT TH Visit (TeleHealth) Gastroenterology at [place] [address] [facility] [place] [address] 07/02/2024 2:00 PM EDT Appointment Non-Invasive Cardiology Lab [address] Luis Alfredo Velazquez MD [facility] [address] 07/02/2024 4:00 PM EDT Office Visit Cardiology at [place] [phone] [facility] [place] [address] 07/02/2024 4:40 PM EDT Office Visit Cardiology at [address] [address] [address] [facility] [place] [address] documented as of this encounter Visit Diagnoses Diagnosis Psoriasis Other psoriasis Panniculitis Panniculitis, unspecified site documented in this encounter Care Teams Space Control Agent Relationship Specialty Start Date End Date Marcio Carranza MD [address] [facility] [place] [address] PCP - General 08/07/10 11/10/17 documented as of this encounter
--- OUTSIDE RECORDS SUMMARY | 2024-04-16 00:29 | XMS_ITS | Encounter Summary ---
Author Organization [facility] [place] [address] Care Team Providers Care Bias Cutter Helper Name Role Phone Marcio Carranza MD Primary Care Provider [phone] Reason for Visit * Reason Onset Date Comments Medication Refill 12/03/2015 Encounter Details Date Type Department Care Team (Late st Contact Info) Description 12/04/2015 [place] [address] Albert Saenz MD [facility] [place] [address] Ankylosing spondylitis of cervical region Social History [...] Notes * Telephone Encounter - Lory Jarquin, SOFTWARE SUPPORT TECHNICIAN - 12/04/2015 9:22 AM EDTFrom: Kim Funes To: Lana Castro MD Sent: 12/03/2015 8:22 PM EDT Subject: Medication Renewal Request Original authorizing provider: LANA CASTRO MD Kim Funes would like a refill of the following medications: Adalimumab (HUMIRA PEN) 40 mg/0.8 mL Pen Injector Kit [LANA CASTRO MD] Preferred pharmacy: [place], [place] - [address] Comment: documented in this encounter Plan of Treatment Upcoming Encounters Date Type Department Care Team (Late st Contact Info) Description 04/19/2024 10:00 AM EDT Hospital Encounter Non-[place] [address] Arrived 04/29/2024 9:50 AM EDT Appointment MRI at [place] [phone] Luis Alfredo Velazquez MD [facility] [place] [address] 04/29/2024 9:50 AM EDT Appointment MRI at [address] Luis Alfredo Velazquez MD [facility] [place] [address] 06/07/2024 2:30 PM EDT TH Visit (TeleHealth) Gastroenterology at [address] Dajuan Rachel MD [facility] [place] [address] 07/02/2024 2:00 PM EDT Appointment Non-[place] [address] Luis Alfredo Velazquez MD [facility] [place] [address] 07/02/2024 4:00 PM EDT Office Visit Cardiology at [address] [phone] [place] PA [facility] [place] [address] 07/02/2024 4:40 PM EDT Office Visit Cardiology at [address] [phone] Luis Alfredo Velazquez MD [facility] [place] [address] documented as of this encounter Visit Diagnoses Diagnosis Ankylosing spondylitis of cervical region Ankylosing spondylitis documented in this encounter Care Teams Bias Cutter Helper Relationship Specialty Start Date End Date Marcio Carranza MD [address] [place] [address] PCP - General 08/07/10 11/10/17 documented as of this encounter
--- OUTSIDE RECORDS SUMMARY | 2024-04-16 00:29 | XMS_ITS | Encounter Summary ---
Author Organization [facility] [place] [address] Care Team Providers Care Plant Propagator Name Role Phone Marcio Devlin DO Primary Care Provider [phone] Reason for Visit * Reason Comments Medication Refill Encounter Details Date Type Department Care Team (Late st Contact Info) Description 04/06/2015 [place] [phone] Shola Whitlock, [facility] DR [place] [address] Social History Tobacco Use Types Packs/Day Years [...] AM EDT Hospital Encounter Non-[place] [address] Arrived 04/29/2024 9:50 AM EDT Appointment MRI at [place] [address] Luis Alfredo Velazquez MD [facility] [place] [address] 04/29/2024 9:50 AM EDT Appointment MRI at [place] [address] Luis Alfredo Velazquez MD [facility] [place] [address] 06/07/2024 2:30 PM EDT TH Visit (TeleHealth) Gastroenterology at [place] [address] Dajuan Rachel MD [facility] [place] [address] 07/02/2024 2:00 PM EDT Appointment Non-Invasive Cardiology Lab [place] [address] Luis Alfredo Velazquez MD [facility] [place] [address] 07/02/2024 4:00 PM EDT Office Visit Cardiology at [place] [address] [address] [place] [facility] [place] [address] 07/02/2024 4:40 PM EDT Office Visit Cardiology at [place] [address] Luis Alfredo Velazquez MD [facility] [place] [address] documented as of this encounter Visit Diagnoses Not on filedocumented in this encounter Care Teams Plant Propagator Relationship Specialty Start Date End Date Marcio Devlin DO [address] [place] [address] PCP - General Family Medicine 11/11/17 documented as of this encounter
--- OUTSIDE RECORDS SUMMARY | 2024-04-16 00:29 | XMS_ITS | Encounter Summary ---
Author Organization Formerly [facility] [place] [address] Care Team Providers Care Priming Machine Operator Name Role Phone Marcio Carranza MD Primary Care Provider +1 -[phone] Encounter Details Date Type Department Care Team (Late st Contact Info) Description 03/04/2017 9:00 AM EDT - 03/04/2017 9:45 AM EDT Surgery [place] [phone] Raúl Austin MD [facility] [place] [address] COLONOSCOPY FLEXIBLE, WITH BX (WRVU 3.56) Social [...] to be checked. Friday-Friday Same Day Endo [phone] 7a-8p Otherwise contact [phone] and ask to speak to the traveling crane operator sales consultant insurance Follow up care is a hernandez part [...] Austin MD - 03/04/2017 9:36 AM EDT [facility] [place] Patient Name: Kim Funes : [id number] MR#: [id number] Case Date: 03/04/2017 Surgeon: Surgeon(s) and Role: [...] Hospital Encounter Non-Invasive Cardiology Lab [place] [address] Arrived 04/29/2024 9:50 AM EDT Appointment MRI at [place] [address] Luis Alfredo Velazquez MD [facility] [place] [address] 04/29/2024 9:50 AM EDT Appointment MRI at [place] [address] Luis Alfredo Velazquez MD [facility] [place] [address] 06/07/2024 2:30 PM EDT TH Visit (TeleHealth) Gastroenterology at [place] [address] Dajuan Rachel MD [facility] [place] [address] 07/02/2024 2:00 PM EDT Appointment Non-Invasive Cardiology Lab [address] Luis Alfredo Velazquez MD [facility] [place] [address] 07/02/2024 4:00 PM EDT Office Visit Cardiology at [place] [phone] Mars Green, YURIY [facility] [place] [address] 07/02/2024 4:40 PM EDT Office Visit Cardiology at [address] [address] Luis Alfredo Velazquez MD [facility] [place] [address] documented as of this encounter Procedures Procedure [...] (03/04/2017 11:01 AM EDT) FINAL DIAGNOSIS (AP) [id number] ?Location: 4T; EA09; A The signing pathologist [...] ng: (T1) ??sns 03/07/2017 4:22 PM EDT [facility] GI Biopsy 03/04/2017 11:0 1 AM [...] EDT Raúl Austin MD PATHOLOGY/CYTOLOGY O IRMA [facility] [place] [address] * Specimen to Pathology (surgical or derm) (03/04/2017 9:39 AM EDT) AP Specimen 03/04/2017 9:39 AM EDT 03/04/2017 9:39 AM EDT Narrative [facility] - 03/04/2017 9:39 AM EDT Specimen requisition ordered. ??Separate Pathology report to follow Raúl Austin MD PATHOLOGY/CYTOLOGY O RDERABLES [facility] [place] [address] * Specimen to Pathology (surgical or derm) (03/04/2017 9:39 AM EDT) AP Specimen 03/04/2017 9:39 AM EDT 03/04/2017 9:39 AM EDT Narrative [facility] - 03/04/2017 9:39 AM EDT Specimen requisition ordered. ??Separate Pathology report to follow Raúl Austin MD PATHOLOGY/CYTOLOGY O IRMA Performing Organization Address City/[facility]/[place] [address] * Specimen to Pathology (surgical or derm) (03/04/2017 9:39 AM EDT) AP Specimen 03/04/2017 9:39 AM EDT 03/04/2017 9:39 AM EDT Narrative [facility] - 03/04/2017 9:39 AM EDT Specimen requisition ordered. ??Separate Pathology report to follow Raúl Austin MD PATHOLOGY/CYTOLOGY O IRMA Performing Organization Address [facility] [place] [address] * Specimen to Pathology (surgical or derm) (03/04/2017 9:39 AM EDT) AP Specimen 03/04/2017 9:39 AM EDT 03/04/2017 9:39 AM EDT Narrative [facility] - 03/04/2017 9:39 AM EDT Specimen requisition ordered. ??Separate Pathology report to follow Raúl Austin MD PATHOLOGY/CYTOLOGY O IRMA Performing Organization Address [facility]/[place] [address] * Specimen to Pathology (surgical or derm) (03/04/2017 9:39 AM EDT) AP Specimen 03/04/2017 9:39 AM EDT 03/04/2017 9:39 AM EDT Narrative [facility] - 03/04/2017 9:39 AM EDT Specimen requisition ordered. ??Separate Pathology report to follow Raúl Austin MD PATHOLOGY/CYTOLOGY O IRMA Performing Organization Address City/[facility]/[place] [address] * Specimen to Pathology (surgical or derm) (03/04/2017 9:39 AM EDT) AP Specimen 03/04/2017 9:39 AM EDT 03/04/2017 9:39 AM EDT Narrative [facility] - 03/04/2017 9:39 AM EDT Specimen requisition ordered. ??Separate Pathology report to follow Raúl Austin MD PATHOLOGY/[place] [address] * COLONOSCOPY (03/04/2017 7:44 AM EDT) COLONOSCOPY [facility] Endoscopy Procedure Date: 03/04/2017 7:44 AM ? Patient Name: Kim Funes ? N: [id number] ? Date of : 1960 ? Age: 56 ? Order #: [id number] ? Instrument Name: [id number] ? Procedure: ? Colonoscopy Indications: ? High [...] preparation was evaluated using ? the BBPS (Wolf Bowel Preparation ? Scale) with scores of: [...] infusion 100 mL/hr, Intravenous, CONTINUOUS, Starting on 03/04/17 at 0815, Until 03/04/17 at 1004, Endoscopy (Day of Procedure) New Bag 03/04/2017 8:06 AM EDT 100 mL/hr 100 mL/hr midazolam (PF) (VERSED) 1 mg/mL multi-dose injection ONCE PRN, Starting on 03/04/17 at 0848, Until 03/04/17 at 1301, Intra-Operative (Intra-Procedure), Routine Given 03/04/2017 9:01 AM EDT 0.5 mg Given 03/04/2017 8:58 AM EDT 0.5 mg Given 03/04/2017 8:55 AM EDT 0.5 mg documented in this encounter Active and Recently Administered Medications Times are shown in EDT. Continuous Medication Order 03/02/2017 03/03/2017 03/04/2017 lactated Ringers infusion (CANCELED) 100 mL/hr, Intravenous, CONTINUOUS, Starting on e 03/04/17 at 0815, Until Tu03/04/17 at 1004, Endoscopy (Day of Procedure) 0806 (New Bag - Prov ider: Nayana Downey RN) PRN Medication Order 03/02/2017 03/03/2017 03/04/2017 fentaNYL 50 mcg/mL multi-dose injection (CANCELED) ONCE PRN, Starting on e 03/04/17 at 0848, Until Fri03/04/17 at 1301, Intra-Operative (Intra-Procedure), Routine 0848 (Given - Provid er: Genie Jeronimo RN)0851 (Given - Provider: Genie Jeronimo RN)0858 (Given - Provider: Genie Jeronimo RN)0901 (Given - Provider: Genie Jeronimo, FRANCESCA) midazolam (PF) (VERSED) 1 mg/mL multi-dose injection (CANCELED) ONCE PRN, Starting on 03/04/17 at 0848, Until 03/04/17 at 1301, Intra-Operative (Intra-Procedure), Routine 0848 (Given - Provid er: Genie Jeronimo RN)0851 (Given - Provider: Genie Jeronimo RN)0855 (Given - Provider: Genie Jeronimo RN)0858 (Given - Provider: Genie Jeronimo RN)0901 (Given - Provider: Genie Jeronimo RN) documented in this encounter Care Teams Priming Machine Operator Relationship Specialty Start Date End Date Marcio Carranza MD [address] [place] [address] PCP - General 08/07/10 11/10/17 documented as of this encounter
--- OUTSIDE RECORDS SUMMARY | 2024-04-16 00:29 | XMS_ITS | Encounter Summary ---
Author Organization [facility] [place] [address] Care Team Providers Care Chief Steward/Stewardess Name Role Phone Marcio Carranza MD Primary Care Provider +1 [phone] Encounter Details Date Type Department Care Team (Latest Contact Info) Description 06/03/2014 8:45 AM EDT Ancillary Appointment Dermatology at [address] [address] Marcio Townsend MD [facility] [address] [place] [address] Erythema nodosum (Primary Dx) Social History Tobacco [...] GRAND ROUNDS NOTE 06/03/2014 Kim Graff Shantel [id number] Marcio Townsend MD Chief Resident in Dermatology [...] topical triamcinolone and clobetasol prn Past Biopsies: [id number], to be discussed Pertinent Labs: CBC WNL [...] will be discussed with patient by referring Bricklayer Tender - Dr. Pack. Marcio Townsend MD Resident in Dermatology [facility] Staff pet groomer: Casper Marlow MD, PhD Section of Dermatology [facility] documented in this encounter Plan of Treatment Upcoming Encounters Date Type Department Care Team (Late st Contact Info) Description 04/19/2024 10:00 AM EDT Hospital Encounter Non-Invasive Cardiology Lab [place] [phone] Arrived 04/29/2024 9:50 AM EDT Appointment MRI at [address] Luis Alfredo Velazquez MD [facility] [place] [address] 04/29/2024 9:50 AM EDT Appointment MRI at [place] [phone] Luis Alfredo Velazquez MD [facility] [place] [address] 06/07/2024 2:30 PM EDT TH Visit (TeleHealth) Gastroenterology at [place] [address] Dajuan Rachel MD [facility] [place] [address] 07/02/2024 2:00 PM EDT Appointment Non-Invasive Cardiology Lab [address]1000 Luis Alfredo Velazquez MD [facility] [place] [address] 07/02/2024 4:00 PM EDT Office Visit Cardiology at [address]1000 Mars Green PA [facility] [place] [address] 07/02/2024 4:40 PM EDT Office Visit Cardiology at [place] [address] Luis Alfredo Velazquez MD [facility] [place] [address] documented as of this encounter Visit Diagnoses Diagnosis Erythema nodosum- Primary documented in this encounter Care Teams Chief Steward/Stewardess Relationship Specialty Start Date End Date Marcio Carranza MD [address] [place] [address] PCP - General 08/07/10 11/10/17 documented as of this encounter
--- OUTSIDE RECORDS SUMMARY | 2024-04-16 00:29 | XMS_ITS | Encounter Summary ---
Author Organization [facility] Address [facility] [place] [address] Care Team Providers Care Fine Hairer Name Role Phone Marcio Carranza MD Primary Care Provider +1 -[phone] Encounter Details Date Type Department Care Team (Late st Contact Info) Description 07/25/2014 Telephone Dermatology at [facility] [address] [place] [address] Marcio Townsend MD [facility] [address] [place] [address] Social History Tobacco Use Types Packs/Day Years [...] 05/17/14 Kristian) - please call her at [phone]. Leena Baker documented in this encounter Plan of Treatment Upcoming Encounters Date Type Department Care Team (Late st Contact Info) Description 04/19/2024 10:00 AM EDT Hospital Encounter Non-[place] [address] Arrived 04/29/2024 9:50 AM EDT [place] [address] Luis Alfredo Velzaquez MD [facility] [place] [address] 04/29/2024 9:50 AM EDT [place] [address] Luis Alfredo Velazquez MD [facility] [place] [address] 06/07/2024 2:30 PM EDT TH Visit (TeleHealth) Gastroenterology at [place] [address] Dajuan Rachel MD [facility] [place] [address] 07/02/2024 2:00 PM EDT Appointment Non-Invasive Cardiology Lab [place] [address] Luis Alfredo Velazquez MD [facility] [place] [address] 07/02/2024 4:00 PM EDT Office Visit Cardiology at [place] [address] Mars Geren PA [facility] [place] [address] 07/02/2024 4:40 PM EDT Office Visit Cardiology at [place] [address] Luis Alfredo Velazquez MD [facility] [place] [address] documented as of this encounter Visit Diagnoses Not on filedocumented in this encounter Care Teams Fine Hairer Relationship Specialty Start Date End Date Marcio Carranza MD [address] [place] [address] PCP - General 08/07/10 11/10/17 documented as of this encounter
--- OUTSIDE RECORDS SUMMARY | 2024-04-16 00:29 | XMS_ITS | Encounter Summary ---
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 Social History [...] AM EDT Hospital Encounter [place] [address] Arrived 04/29/2024 9:50 AM [place] [address] Luis Alfredo Velazquez MD [facility] [place] [address] 04/29/2024 9:50 AM EDT Appointment MRI at [place] [address] Luis Alfredo Velazquez MD [facility] [place] [address] 06/07/2024 2:30 PM EDT TH Visit (TeleHealth) Gastroenterology at [place] [phone] Dajuan Rachel MD [facility] [place] [address] 07/02/2024 2:00 PM EDT Appointment Non-Invasive Cardiology Lab [place] [phone] Luis Alfredo Velazquez MD [facility] [place] [address] 07/02/2024 4:00 PM EDT Office Visit Cardiology at [address] [address] Mars Green PA [facility] [place] [address] 07/02/2024 4:40 PM EDT Office Visit Cardiology at [place] [phone] Luis Alfredo Velazquez MD [facility] [address] documented as of this encounter Procedures Procedure [...] BMD measurements and plots are available in [employer] under the imaging tab. Paper copies will be sent to providers without [employer]ler[employer] access. If you have received this report without the data sheet and do not have access to [employer], please contact Radiology Contact Centre Supervisor at [phone] Friday thru Friday 8am-4pm. Narrative 03/05/2016 2:40 [...] copies will be sent to providers without E-DH access.If you have received this report without the data sheet and do not haveaccess to E-DH, please contact Radiology Contact Centre Supervisor at [phone] Friday thrrid 8am-4pm. 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
--- OUTSIDE RECORDS SUMMARY | 2024-04-16 00:29 | XMS_ITS | Encounter Summary ---
[place] [address] Care Team Providers Care Retail Asset Protection Specialist Name Role Phone Marcio Carranza MD Primary Care Provider [phone] [phone] Encounter Details Date Type Department Care Team (Late st Contact Info) Description 03/01/2015 10:15 AM EDT [place] [phone] Shola Whitlock [facility] [place] [address] Ankylosing spondylitis Discharge Disposition: Home Social History [...] associated Ankylosing Spondylitis - Currently on Humira [id number] and SSZ - Symptoms of cervical and [...] AM EDT Hospital Encounter Non-[place] [address] Arrived 04/29/2024 9:50 AM [place] [phone] Luis Alferdo Velazquez MD [facility] [place] [address] 04/29/2024 9:50 AM [place] [phone] Luis Alfredo Velazquez MD [facility] [place] [address] 06/07/2024 2:30 PM EDT TH Visit (TeleHealth) Gastroenterology at [place] [phone] Dajuan Rachel MD [facility] [place] [address] 07/02/2024 2:00 PM EDT Appointment Non-Invasive Cardiology Lab [place] [phone] Luis Alfredo Velazquez MD [facility] [place] [address] 07/02/2024 4:00 PM EDT Office Visit Cardiology at [place] [phone] Mars Green PA [facility] [place] [address] 07/02/2024 4:40 PM EDT Office Visit Cardiology at [place] [phone] Luis Alfredo Velazquez MD [facility] [place] [address] documented as of this encounter Procedures Procedure [...] Lab Chepe Jackson MD HEMATOLOGY ORDERABLE S [facility] * (ABNORMAL) Comprehensive metabolic panel (non-fasting) (03/01/2015 11:48 AM EDT) Glucose Lvl 137 65 - 199 mg/dL CERNER MILLENNIUM Comment:Diabetes: >=200 mg/d L plus symptoms BUN 18 8 - 18 mg/dL CERNER MILLENNIUM Creatinine 0.85 0.70 - 1.20 mg/dL CERNER MILLENNIUM Comment: Please note that the pediatric reference intervals supplied above were not validated at [facility]. Results from pediatric [...] the following links into your internet browser. [email or web address] [email or web address] Blood specimen (specimen) 03/01/2015 11:48 AM EDT 03/01/2015 12:20 PM EDT Narrative Resulting Agency Comment Spec In Lab Chepe Jackson MD CHEMISTRY ORDERABLES CERTRU YOUNGIUM * High Sensitivity CRP (03/01/2015 11:48 AM [...] In Lab Chepe Jackson MD CHEMISTRY ORDERABLES TYSHAWN RICKETTS * Sedimentation rate (03/01/2015 11:48 AM EDT) Sed Rate 6 0 - 20 mm/hr TYSHAWN EARLNANCYIUM Blood specimen (specimen) 03/01/2015 11:48 AM EDT 03/01/2015 12:20 PM EDT Narrative Resulting Agency Comment Spec In Lab Chepe Jackson MD HEMATOLOGY ORDERABLE S Performing Organization Address City/[facility] Co de Phone Number TYSHAWN RICKETTS documented in this encounter Visit Diagnoses Diagnosis Ankylosing spondylitis documented in this encounter Care Teams Retail Asset Protection Specialist Relationship Specialty Start Date End Date Marcio Carranza MD [address] [place] [address] PCP - General 08/07/10 11/10/17 documented as of this encounter
--- OUTSIDE RECORDS SUMMARY | 2024-04-16 00:29 | XMS_ITS | Encounter Summary ---
Author Organization [facility] Address [facility] [place] [address] Care Team Providers Care Tree Warden Name Role Phone Marcio Carranza MD Primary Care Provider +1 -[phone] Encounter Details Date Type Department Care Team (Latest Contact Info) Description 08/24/2015 4:51 PM EST - 08/24/2015 11:59 PM [facility] Hospital Encounter XRay at [address] [place] [address] Brittani Martinez, [facility] [place] [address] Ankylosing spondylitis Discharge Disposition: Home Social History [...] AM EDT Hospital Encounter Non-Invasive [place] [address] Arrived 04/29/2024 9:50 AM EDT [place] [address] Luis Alfredo Velazquez MD [facility] [place] [address] 04/29/2024 9:50 AM EDT Appointment MRI at [place] [address] Luis Alfredo Velazquez MD [facility] [place] [address] 06/07/2024 2:30 PM EDT TH Visit (TeleHealth) Gastroenterology at [address]1000 Dajuan Rachel MD [facility] [place] [address] 07/02/2024 2:00 PM EDT Appointment Non-Invasive Cardiology Lab [address]1000 Luis Alfredo Velazquez MD [facility] [place] [address] 07/02/2024 4:00 PM EDT Office Visit Cardiology at [place] [phone] Mars Green PA [facility] [place] [address] 07/02/2024 4:40 PM EDT Office Visit Cardiology at [place] [phone] Luis Alfredo Velazquez MD [facility] [place] [address] documented as of this encounter Procedures Procedure [...] and spinous processes appeared intact. Procedure Note Samm Davis, DO - 08/24/2015 EXAMINATION: XR CERVICAL SPINE [...] spondylitis documented in this encounter Care Teams Tree Warden Relationship Specialty Start Date End Date Marcio Carranza MD [address] [place] [address] PCP - General 08/07/10 11/10/17 documented as of this encounter
--- OUTSIDE RECORDS SUMMARY | 2024-04-16 00:29 | XMS_ITS | Encounter Summary ---
Author Organization [facility] [place] [address] Care Team Providers Care Generation Technologist Name Role Phone Marcio Carranza MD Primary Care Provider +1 [phone] Encounter Details Date Type Department Care Team (Late st Contact Info) Description 09/27/2016 11:00 AM EST Office [place] [phone] Albert Saenz MD [facility] [place] [address] Ankylosing spondylitis Social History Tobacco Use Types [...] 2X ULN. Patient has Hx of MÉNDEZ. RTC- 2 mos/earlier if Sx's persist. * [...] AM EDT Hospital Encounter [place] [phone] Arrived 04/29/2024 9:50 AM [place] [phone] Luis Alfredo Velazquez MD [facility] [place] [address] 04/29/2024 9:50 AM [place] [phone] Luis Alfredo Velazquez MD [facility] [place] [place] [address] 06/07/2024 2:30 PM EDT TH Visit (TeleHealth) [place] [phone] Dajuan Rachel MD [facility] [place] [address] 07/02/2024 2:00 PM EDT Appointment Non[place] [phone] Luis Alfredo Velazquez MD [facility] [place] [address] 07/02/2024 4:00 PM EDT Office Visit Cardiology at [address] [phone] Mars Green PA [facility] [place] [address] 07/02/2024 4:40 PM EDT Office Visit Cardiology at [address] [phone] Luis Alfredo Velazquez MD [facility] [place] [place] [address] documented as of this encounter Procedures Procedure [...] * Differential, Automated (09/27/2016 12:10 PM EST) Pathologist [facility] [place] Neutrophils % 47.3 % [facility] Neutr Abs (ANC) 3.79 1.70 - 6.10 x10(3)/[facility] Lymphocytes % 38.4 % [facility] Lymphocytes Abs 3.1 0.9 - 3.2 x10(3)/[facility] Monocytes % 9.6 % [facility] Monocyte Abs 0.8 0.3 - 0.9 x10(3)/[facility] Eosinophils % 3.6 % [facility] Eosinophils Abs 0.3 0.0 - 0.4 x10(3)/[facility] Basophils % 0.8 % [facility] Basophils Abs 0.1 0.0 - 0.1 x10(3)/[facility] Immature Gran % 0.30 % [facility] Comment: Immature granulocytes(IG's)percentage and absolute count will include metamyelocytes, myelocytes, and promyelocytes. Blood smears from CBCs yielding IG's will be scanned manually for concordance. If this scan disagrees with the automated IG or if promyelocytes are noted, a manual differential will be performed. Melanie Gran Abs 0.02 0.00 - 0.04 x10(3)/[facility] Blood specimen (specimen) 09/27/2016 12:10 PM EST 09/27/2016 12:20 PM EST Narrative Resulting Agency Comment Spec In Lab Brittani Martinez DO HEMATOLOGY ORDER EDUAR [facility] [place] [address] * (ABNORMAL) Hemogram (09/27/2016 12:10 PM EST) WBC 8.0 4.0 - 9.5 x10(3)/[facility] RBC 5.16 4.00 - 5.21 x10(6)/[facility] Hemoglobin 15.9(H) 11.7 - 15.5 gm/dL [facility] Hematocrit 48.0(H) 35.7 - 45.8 % [facility] MCV 93.0 82.6 - 94.4 fL [facility] MCH 30.8 27.1 - 32.0 pg [facility] MCHC 33.1 31.7 - 35.0 gm/dL [facility] Platelets 188 145 - 357 x10(3)/[facility] RDWSD 44.2 37.0 - 46.0 [facility] RDWCV 12.9 11.5 - 14.1 % [facility] MPV 10.9 7.6 - 12.9 [facility] nRBC % Auto 0.0 % [facility] nRBC Abs Auto 0.000 0.000 - 0.000 x10(3)/[facility] Blood specimen (specimen) 09/27/2016 12:10 PM EST 09/27/2016 12:20 PM EST Narrative Resulting Agency Comment Spec In Lab Brittani Martinez DO HEMATOLOGY ORDER EDUAR [facility] [place] [address] * Cyclic Citrullinated Peptide (09/27/2016 12:10 PM EST) Anti-Cyc Cit Peptide <8.0 <=17.0 unit/mL [facility] Blood specimen (specimen) 09/27/2016 12:10 PM EST 09/27/2016 12:20 PM EST Narrative Resulting Agency Comment Spec In Lab Brittani Martinez DO CHEMISTRY ORDERA BLES Performing Organization Address City/[facility]/ZIP Co de Phone Number [facility] [place] [address] * Rheumatoid factor, quant (09/27/2016 12:10 PM EST) Pathologist [facility] [place] RF <10 <=14 IU/mL [facility] Blood specimen (specimen) 09/27/2016 12:10 PM EST 09/27/2016 12:20 PM EST Narrative Resulting Agency Comment Spec In Lab Brittani Martinez DO IMMUNOLOGY ORDER EDUAR Performing Organization Address [facility] [[email or web address]] Co de Phone Number [facility] [place] [address] * (ABNORMAL) Comprehensive metabolic panel (non-fasting) (09/27/2016 12:10 PM EST) [facility] Glucose Lvl 113 65 - 199 mg/dL [facility] Comment:Diabetes: >=200 mg/d L plus symptoms BUN 19(H) 8 - 18 mg/dL [facility] Creatinine 0.73 0.70 - 1.20 mg/dL [facility] Comment: Please note that the pediatric reference intervals supplied above were not validated at [facility]. Results from pediatric patients should be interpreted in conjunction to the patient's age, height and muscle mass. Sodium 143 135 - 145 mmol/L [facility] Potassium 4.1 3.5 - 5.0 mmol/L [facility] Comment: Please note: ??Patients with WBC >100,000 may have falsely elevated Potassium levels. ??For accurate Potassium quantification in these patients send serum separator tube (gold top) for subsequent determinations. ??Contact the Clinical Chemistry Laboratory if there are any questions. Chloride 102 98 - 107 mmol/L [facility] CO2 29 22 - 31 mmol/L [facility] Anion Gap 12 5 - 15 mmol/L [facility] Calcium 10.0 8.5 - 10.5 mg/dL [facility] Total Protein 7.8 6.1 - 8.0 gm/dL [facility] Albumin 4.3 3.2 - 5.2 gm/dL [facility] AST 46(H) 0 - 30 unit/L [facility] ALT 55(H) 0 - 30 unit/L [facility] Alk Phos 73 40 - 104 unit/L [facility] Total Bilirubin 0.5 0.2 - 1.3 mg/dL [facility] Bili, Direct 0.1 0.0 - 0.3 mg/dL [facility] Estimated GFR >60 >=60 [facility] Comment: This estimated GFR (eGFR) [...] the following links into your internet browser. [email or web address] Blood specimen (specimen) 09/27/2016 12:10 PM EST 09/27/2016 12:20 PM EST Narrative Resulting Agency Comment Spec In Lab Brittani Martinez DO CHEMISTRY ORDERA BLES [facility] [place] [address] * CRP, cardiac risk (HS CRP) (09/27/2016 12:10 PM EST) CRP High Sens 3.3 mg/L [facility] Comment: For cardiac risk [...] 2003; 107:363-369 CRP Cardiac Risk High Risk [facility] Blood specimen (specimen) 09/27/2016 12:10 PM EST 09/27/2016 12:20 PM EST Narrative Resulting Agency Comment Spec In Lab Brittani Martinez DO CHEMISTRY ORDERA [facility] Performing Organization Address City/State/[facility] [[email or web address]] Co de Phone Number [facility] [place] [address] documented in this encounter Visit Diagnoses Diagnosis Ankylosing spondylitis documented in this encounter Care Teams Generation Technologist Relationship Specialty Start Date End Date Marcio Carranza MD [address] [facility] [place] [address] PCP - General 08/07/10 11/10/17 documented as of this encounter
--- OUTSIDE RECORDS SUMMARY | 2024-04-16 00:29 | XMS_ITS | Encounter Summary ---
Author Organization [facility] [place] [address] Care Team Providers Care Marble Polisher Name Role Phone Marcio Carranza MD Primary Care Provider +1 [phone] Reason for Visit * Reason Onset Date Comments Medication Refill 04/06/2015 Encounter Details Date Type Department Care Team (Late st Contact Info) Description 04/06/2015 [place] [address] Rian Castro MD [facility] [address] Ankylosing spondylitis of cervical region Social History [...] AM EDT Hospital Encounter Non-[place] [address] Arrived 04/29/2024 9:50 AM EDT Appointment MRI at [place] [address] Luis Alfredo Velazquez MD [facility] [place] [address] 04/29/2024 9:50 AM EDT Appointment MRI at [place] [address] Luis Alfredo Velazquez MD [facility] [place] [address] 06/07/2024 2:30 PM EDT TH Visit (TeleHealth) Gastroenterology at [place] [address] Dajuan Rachel MD [facility] [place] [address] 07/02/2024 2:00 PM EDT Appointment Non-Invasive Cardiology Lab [address]1000 Luis Alfredo Velazquez MD [facility] [place] [address] 07/02/2024 4:00 PM EDT Office Visit Cardiology at [address]1000 Mars Green [place] [facility] [place] [address] 07/02/2024 4:40 PM EDT Office Visit Cardiology at [place] [phone] Luis Alfredo Velazquez MD [facility] [place] [address] documented as of this encounter Visit Diagnoses Diagnosis Ankylosing spondylitis of cervical region Ankylosing spondylitis documented in this encounter Care Teams Marble Polisher Relationship Specialty Start Date End Date Marcio aCrranza MD [address] [place] [address] PCP - General 08/07/10 11/10/17 documented as of this encounter
--- OUTSIDE RECORDS SUMMARY | 2024-04-16 00:29 | XMS_ITS | Encounter Summary ---
Author Organization [facility] Address [facility] [place] [address] Care Team Providers Care Cylinder Valve Repairer Name Role Phone Marcio Carranza MD Primary Care Provider [phone] [phone] Encounter Details Date Type Department Care Team (Latest Contact Info) Description 08/24/2015 4:51 PM EST - 08/24/2015 11:59 PM [facility] Hospital Encounter XRay at [address] Center [place] [address] Brittani Martinez, [facility] [place] [address] Ankylosing spondylitis Discharge Disposition: Home Social History [...] AM EDT Hospital Encounter Non-Invasive [place] [address] Arrived 04/29/2024 9:50 AM EDT [place] [address] Luis Alfredo Velazquez MD [facility] [address] 04/29/2024 9:50 AM EDT Appointment MRI at [place] [address] Luis Alfredo Velazquez MD [facility] [place] [address] 06/07/2024 2:30 PM EDT TH Visit (TeleHealth) Gastroenterology at [address]1000 Dajuan Rachel MD [facility] [place] [address] 07/02/2024 2:00 PM EDT Appointment Non-Invasive Cardiology Lab [address]1000 Luis Alfredo Velazquez MD [facility] [place] [address] 07/02/2024 4:00 PM EDT Office Visit Cardiology at [place] [phone] Mars Green PA [facility] [place] [place] [address] 07/02/2024 4:40 PM EDT Office Visit Cardiology at [place] [phone] Luis Alfredo Velazquez MD [facility] [place] [address] documented as of this encounter Procedures Procedure [...] left hip prosthesis is noted. Procedure Note Susan Samm oJse, DO - 08/24/2015 EXAMINATION: XR LUMBAR SPINE [...] spondylitis documented in this encounter Care Teams Cylinder Valve Repairer Relationship Specialty Start Date End Date Marcio Carranza MD [address] [place] [address] PCP - General 08/07/10 11/10/17 documented as of this encounter
--- OUTSIDE RECORDS SUMMARY | 2024-04-16 00:29 | XMS_ITS | Encounter Summary ---
Author Organization [facility] [place] [address] Care Team Providers Care Burlap Spreader Name Role Phone Marcio Carranza MD Primary Care Provider [phone] [phone] Encounter Details Date Type Department Care Team (Late st Contact Info) Description 08/24/2015 4:00 PM EST Office [place] [phone] Albert Saenz MD [facility] [place] [address] Ankylosing spondylitis Social History Tobacco Use Types [...] AM EDT Hospital Encounter Non-Invasive Cardiology Lab [address]1000 Arrived 04/29/2024 9:50 AM EDT Appointment MRI at [place] [address] Luis Alfredo Velazquez MD [facility] [place] [address] 04/29/2024 9:50 AM EDT Appointment MRI at [place] [address] Luis Alfredo Velazquez MD [facility] [place] [address] 06/07/2024 2:30 PM EDT TH Visit (TeleHealth) Gastroenterology at [address]1000 Dajuan Rachel MD [facility] [place] [address] 07/02/2024 2:00 PM EDT Appointment Non[place] [address] Luis Alfredo Velazquez MD [facility] [place] [address] 07/02/2024 4:00 PM EDT Office Visit Cardiology at [address]1000 Mars [place], PA [facility] [address] [place] [phone] 07/02/2024 4:40 PM EDT Office Visit Cardiology at [address] [place] [address] Luis Alfredo Velazquez MD [facility] [place] [address] documented as of this encounter Procedures Procedure [...] left hip prosthesis is noted. Procedure Note Samm Davis, DO - 08/24/2015 EXAMINATION: XR LUMBAR SPINE [...] High Sensitivity CRP (08/24/2015 4:45 PM EST) [facility] CRP High Sens 1.8 mg/L [facility] Comment: Interpretations: 1) For accurate cardiac [...] Lab Brittani Martinez DO CHEMISTRY ORDERA BLES [facility] * Sedimentation rate (08/24/2015 4:45 PM EST) [facility] Sed Rate 6 0 - 20 mm/hr CERTRU RICKETTS Blood specimen (specimen) 08/24/2015 4:45 PM EST 08/24/2015 4:48 PM EST Narrative Resulting Agency Comment Spec In Lab Brittani Martinez DO HEMATOLOGY ORDER EDUAR TYSHAWN RICKETTS documented in this encounter Visit Diagnoses Diagnosis Ankylosing spondylitis Ankylosing spondylitis Ankylosing spondylitis documented in this encounter Care Teams Burlap Spreader Relationship Specialty Start Date End Date Marcio Carranza MD [address] [facility] [address] PCP - General 08/07/10 11/10/17 documented as of this encounter
--- OUTSIDE RECORDS SUMMARY | 2024-04-16 00:29 | XMS_ITS | Encounter Summary ---
[place] [address] Care Team Providers Care Mechanical Service Representative Name Role Phone Marcio Carranza MD Primary Care Provider [phone] [phone] Encounter Details Date Type Department Care Team (Late st Contact Info) Description 05/18/2014 3:30 PM EDT [place] [phone] Shola Whitlock [facility] [place] [address] Ankylosing spondylitis (Primary Dx) Discharge Disposition: Home [...] associated Ankylosing Spondylitis - Currently on Humira [id number] and SSZ - Symptoms of cervical and [...] AM EDT Hospital Encounter Non-Invasive [place] [phone] Arrived 04/29/2024 9:50 AM [place] [phone] Luis Alfredo Velazquez MD [facility] [place] [address] 04/29/2024 9:50 AM EDT Appointment MRI at [address]1000 Luis Alfredo Velazquez MD [facility] [place] [address] 06/07/2024 2:30 PM EDT TH Visit (TeleHealth) Gastroenterology at [address]1000 Dajuan Rachel MD [facility] [place] [address] 07/02/2024 2:00 PM EDT Appointment Non-Invasive Cardiology Lab [address]1000 Luis Alfredo Velazquez MD [facility] [place] [address] 07/02/2024 4:00 PM EDT Office Visit Cardiology at [place] [phone] Mars Green [place] [facility] [place] [address] 07/02/2024 4:40 PM EDT Office Visit Cardiology at [place] [phone] Luis Alfredo Velazquez MD [facility] [place] [address] documented as of this encounter Procedures Procedure [...] MD HEMATOLOGY ORDERABLE S Performing Organization Address [facility]/State/ZIP Co de Phone Number CERNER MILLENNIUM * (ABNORMAL) Hemogram (05/18/2014 4:41 PM EDT) WBC 8.5 4.0 - 10.0 x10(3)/mcL CERNER [...] Liang Novak MD HEMATOLOGY ORDERABLE S CERNER MILLENNIUM * (ABNORMAL) Comprehensive metabolic panel (non-fasting) (05/18/2014 4:41 PM EDT) Glucose Lvl 122 60 - 199 mg/dL CERNER MILLENNIUM Comment:Diabetes: >=200 mg/d L plus symptoms BUN 16 8 - 18 mg/dL CERNER MILLENNIUM Creatinine 0.85 0.70 - 1.20 mg/dL CERNER MILLENNIUM Comment: Please note that the pediatric reference intervals supplied above were not validated at [facility]. Results from pediatric patients should be [...] the following links into your internet browser. [email or web address] Blood specimen (specimen) 05/18/2014 4:41 PM EDT 05/18/2014 4:49 PM EDT Narrative Resulting Agency Comment Spec In Lab Liang Novak MD CHEMISTRY ORDERABLES Performing Organization Address [facility] Co de Phone Number Troika NetworksTRU DATYALEXANDRE * High Sensitivity CRP (05/18/2014 4:41 PM EDT) CRP High Sens 4.3 mg/L [facility] MILLENNIUM Comment: Interpretations: 1) For accurate cardiac [...] Novak MD CHEMISTRY ORDERABLES Performing Organization Address [facility] de Phone Number Troika NetworksTRU DATYALEXANDRE * Sedimentation rate (05/18/2014 4:41 PM EDT) Sed Rate 9 0 - 20 mm/hr [facility] [employer] IntegrationENNIUM Blood specimen (specimen) 05/18/2014 4:41 PM EDT 05/18/2014 4:49 PM EDT Narrative Resulting Agency Comment Spec In Lab Liang Novak MD HEMATOLOGY ORDERABLE S Performing Organization Address [facility] Co de Phone Number Troika NetworksTRU [place] [employer] documented in this encounter Visit Diagnoses Diagnosis Ankylosing spondylitis- Primary documented in this encounter Care Teams Mechanical Service Representative Relationship Specialty Start Date End Date Marcio Carranza MD [address] [place] [address] PCP - General 08/07/10 11/10/17 documented as of this encounter
--- OUTSIDE RECORDS SUMMARY | 2024-04-16 00:29 | XMS_ITS | Encounter Summary ---
Author Organization [facility] [place] [address] Care Team Providers Care Graduate Advisor Name Role Phone Marcio Carranza MD Primary Care Provider [phone] [phone] Reason for Visit * Reason Comments Arthritis Encounter Details Date Type Department Care Team (Late st Contact Info) Description 09/14/2014 9:15 AM EST Follow-[place] [phone] Shola Whitlock, [facility] [address] Ankylosing spondylitis of cervical region Discharge Disposition: [...] associated Ankylosing Spondylitis - Currently on Humira s0rsiax and SSZ - Symptoms of cervical and [...] AM EDT Hospital Encounter Non-[place] [address] Arrived 04/29/2024 9:50 AM EDT [place] [address] Luis Alfredo Velazquez MD [facility] [place] [address] 04/29/2024 9:50 AM EDT [place] [address] Luis Alfredo Velazquez MD [facility] [place] [address] 06/07/2024 2:30 PM EDT TH Visit (TeleHealth) Gastroenterology at [place] [phone] Dajuan Rachel MD [facility] [place] [address] 07/02/2024 2:00 PM EDT Appointment Non[place] [address] Luis Alfredo Velazquez MD [facility] [place] [address] 07/02/2024 4:00 PM EDT Office Visit Cardiology at [place] [phone] [place] Green PA [facility] [place] [address] 07/02/2024 4:40 PM EDT Office Visit Cardiology at [address] [phone] Luis Alfredo Velazquez MD [facility] [place] [address] documented as of this encounter Procedures Procedure [...] * (ABNORMAL) Hemogram (09/14/2014 10:12 AM EST) Pathologist [facility] WBC 7.2 4.0 - 10.0 x10(3)/mcL CERNER [...] Lab Brittani Martinez DO HEMATOLOGY ORDER EDUAR [facility] * (ABNORMAL) Comprehensive metabolic panel (non-fasting) (09/14/2014 10:12 AM EST) [facility] Glucose Lvl 211(H) 60 - 199 mg/dL CERNER MILLENNIUM Comment:Diabetes: >=200 mg/d L plus symptoms BUN 19(H) 8 - 18 mg/dL CERNER MILLENNIUM Creatinine 0.89 0.70 - 1.20 mg/dL CERNER MILLENNIUM Comment: Please note that the pediatric reference intervals supplied above were not validated at [facility]. Results from pediatric patients should be interpreted [...] the following links into your internet browser. [email or web address] Blood specimen (specimen) 09/14/2014 10:12 AM EST 09/14/2014 10:20 AM EST Narrative Resulting Agency Comment Spec In Lab Brittani Martinez DO CHEMISTRY ORDERA BLES CERNER MILLENNIUM * High Sensitivity CRP (09/14/2014 10:12 AM [...] DO CHEMISTRY ORDERA BLES Performing Organization Address City/[facility] [address]/[facility] Co de Phone Number TYSHAWN RICKETTS * Sedimentation rate (09/14/2014 10:12 AM EST) Sed Rate 6 0 - 20 mm/hr TYSHAWN RICKETTS Blood specimen (specimen) 09/14/2014 10:12 AM EST 09/14/2014 10:20 AM EST Narrative Resulting Agency Comment Spec In Lab Brittani Martinez DO HEMATOLOGY ORDER EDUAR Performing Organization Address City/[facility] [address]/[facility] Co de Phone Number TYSHAWN RICKETTS documented in this encounter Visit Diagnoses Diagnosis Ankylosing spondylitis of cervical region Ankylosing spondylitis documented in this encounter Care Teams Graduate Advisor Relationship Specialty Start Date End Date Marcio Carranza MD [address] [place] [address] PCP - General 08/07/10 11/10/17 documented as of this encounter
--- OUTSIDE RECORDS SUMMARY | 2024-04-16 00:29 | XMS_ITS | Encounter Summary ---
Author Organization [facility] [place] [address] Care Team Providers Care Storage Management Architect Name Role Phone Marcio Carranza MD Primary Care Provider +1 -[phone] Reason for Visit * Reason Onset Date Comments Medication Refill 05/30/2016 Encounter Details Date Type Department Care Team (Late st Contact Info) Description 05/31/2016 Refill [place] [phone] Sindi Guzmán RN Ankylosing spondylitis of cervical [...] Injector Kit [AYDEN NAVARRO MD] Preferred pharmacy: [facility] [address] Comment: documented in this encounter Plan of Treatment Upcoming Encounters Date Type Department Care Team (Late st Contact Info) Description 04/19/2024 10:00 AM EDT Hospital Encounter Non-[place] [address] Arrived 04/29/2024 9:50 [place] [address] Luis Alfredo Velazquez MD [facility] [place] [address] 04/29/2024 9:50 AM EDT [place] [phone] Luis Alfredo Velazquez MD [facility] [place] [address] 06/07/2024 2:30 PM EDT TH Visit (TeleHealth) Gastroenterology at [place] [phone] Dajuan Rachel MD [facility] [place] [address] 07/02/2024 2:00 PM EDT Appointment Non-[place] [address] Luis Alfredo Velazquez MD [facility] [place] [address] 07/02/2024 4:00 PM EDT Office Visit Cardiology at [address] [address] Mars Green PA [facility] [place] [address] 07/02/2024 4:40 PM EDT Office Visit Cardiology at [address] [address] Luis Alfredo Velazquez MD [facility] [place] [address] documented as of this encounter Visit Diagnoses Diagnosis Ankylosing spondylitis of cervical region Ankylosing spondylitis documented in this encounter Care Teams Storage Management Architect Relationship Specialty Start Date End Date Marcio Carranza MD [address] [place] [address] PCP - General 08/07/10 11/10/17 documented as of this encounter
--- OUTSIDE RECORDS SUMMARY | 2024-04-16 00:29 | XMS_ITS | Encounter Summary ---
Author Organization [facility] [address] Care Team Providers Care Research Computing Specialist Name Role Phone Marcio Carranza MD Primary Care Provider +1 [phone] Encounter Details Date Type Department Care Team (Late st Contact Info) Description 02/29/2016 1:45 PM EDT Office [place] [address] Albert Saenz MD [facility] [place] [address] Enteropathic arthritis Social History Tobacco Use Types [...] AM EDT Hospital Encounter Non-Invasive [place] [address] Arrived 04/29/2024 9:50 AM EDT Appointment MRI at [place] [phone] Luis Alfredo Velazquez MD [facility] [place] [address] 04/29/2024 9:50 [place] [address] Luis Alfredo Velazquez MD [facility] [place] [address] 06/07/2024 2:30 PM EDT TH Visit (TeleHealth) Gastroenterology at [place] [phone] Dajuan Rachel MD [facility] [place] [address] 07/02/2024 2:00 PM EDT Appointment Non-Invasive Cardiology Lab [place] [phone] Luis Alfredo Velazquez MD [facility] [place] [address] 07/02/2024 4:00 PM EDT Office Visit Cardiology at [place] [phone] Mars Green PA [facility] [place] [address] 07/02/2024 4:40 PM EDT Office Visit Cardiology at [address] [address] Luis Alfredo Velazquez MD [facility] [place] [address] documented as of this encounter Procedures Procedure [...] BMD measurements and plots are available in [employer] under the imaging tab. Paper copies will be sent to providers without [email or web address] access. If you have received this report without the data sheet and do not have access to [email or web address], please contact Radiology Hand Spring Repairer Helper at [phone] Friday thru Friday 8am-4pm. Narrative 03/05/2016 2:40 [...] BMD measurements and plots are available in [employer] the imaging tab. Paper copies will be sent to providers without [employer] access.If you have received this report without the data sheet and do not haveaccess to [employer], please contact Radiology Hand Spring Repairer Helper at [phone] Friday thruFriday 8am-4pm. Lola Haley DO IMG DEXA ORDERABLE S * Differential, Automated (02/29/2016 2:42 PM EDT) Neutrophils % 45.9 % [facility] Neutr Abs (ANC) 3.38 1.50 - 6.30 x10(3)/[facility] Lymphocytes % 41.3 % [facility] Lymphocytes Abs 3.0 1.0 - 3.6 x10(3)/[facility] Monocytes % 10.0 % [facility] Monocyte Abs 0.7 0.2 - 1.0 x10(3)/[facility] Eosinophils % 2.3 % [facility] Eosinophils Abs 0.2 0.0 - 0.5 x10(3)/[facility] Basophils % 0.4 % [facility] Basophils Abs 0.0 0.0 - 0.2 x10(3)/[facility] Immature Gran % 0.10 % [facility] Comment: Immature granulocytes(IG's)percentage and absolute count will include metamyelocytes, myelocytes, and promyelocytes. Blood smears from CBCs yielding IG's will be scanned manually for concordance. If this scan disagrees with the automated IG or if promyelocytes are noted, a manual differential will be performed. Melanie Gran Abs 0.01 0.00 - 0.05 x10(3)/[facility] Blood specimen (specimen) 02/29/2016 2:42 PM EDT 02/29/2016 2:48 PM EDT Narrative Resulting Agency Comment Spec In Lab Lola Haley DO HEMATOLOGY ORDERAB LES [facility] [place] [address] * (ABNORMAL) Hemogram (02/29/2016 2:42 PM EDT) WBC 7.4 4.0 - 10.0 x10(3)/[facility] RBC 5.15 3.93 - 5.22 x10(6)/[facility] Hemoglobin 16.2(H) 11.2 - 15.7 gm/dL [facility] Hematocrit 48.5(H) 34.0 - 45.0 % [facility] MCV 94.2(H) 79.0 - 94.[address] [facility] MCH 31.5 26.6 - 32.[address] [facility] MCHC 33.4 32.0 - 36.5 gm/dL [facility] Platelets 193 145 - 370 x10(3)/mcL [facility] RDWSD 46.0 35.0 - 46.[address] [facility] RDWCV 13.4 10.9 - 14.4 % [facility] MPV 11.6 9.0 - 12.[address] [facility] Blood specimen (specimen) 02/29/2016 2:42 PM EDT 02/29/2016 2:48 PM EDT Narrative Resulting Agency Comment Spec In Lab Lola Haley DO HEMATOLOGY ORDERAB LES [facility] [place] [address] * High Sensitivity CRP (02/29/2016 2:42 PM EDT) CRP High Sens 1.9 mg/L [facility] Comment: Interpretations: 1) For accurate cardiac [...] Resulting Agency Comment Spec In Lab Lola Issac Haley DO CHEMISTRY ORDERABL ES [facility] [place] [address] * (ABNORMAL) Comprehensive metabolic panel (non-fasting) (02/29/2016 2:42 PM EDT) Glucose Lvl 139 65 - 199 mg/dL [facility] Comment:Diabetes: >=200 mg/d L plus symptoms BUN 15 8 - 18 mg/dL [facility] Creatinine 0.82 0.70 - 1.20 mg/dL [facility] Comment: Please note that the pediatric reference intervals supplied above were not validated at [facility]. Results from pediatric patients should be interpreted in conjunction to the patient's age, height and muscle mass. Sodium 144 135 - 145 mmol/L [facility] Potassium 4.0 3.5 - 5.0 mmol/L [facility] Comment: Please note: ??Patients with WBC >100,000 may have falsely elevated Potassium levels. ??For accurate Potassium quantification in these patients send serum separator tube (gold top) for subsequent determinations. ??Contact the Clinical Chemistry Laboratory if there are any questions. Chloride 103 98 - 107 mmol/L [facility] CO2 29 22 - 31 mmol/L [facility] Anion Gap 12 5 - 15 mmol/L [facility] Calcium 10.1 8.5 - 10.5 mg/dL [facility] Total Protein 7.9 6.1 - 8.0 gm/dL [facility] Albumin 4.4 3.2 - 5.2 gm/dL [facility] AST 63(H) 0 - 30 unit/L [facility] ALT 83(H) 0 - 30 unit/L [facility] Alk Phos 78 40 - 104 unit/L [facility] Total Bilirubin 0.4 0.2 - 1.3 mg/dL [facility] Bili, Direct 0.1 0.0 - 0.3 mg/dL [facility] Estimated GFR >60 >=60 [facility] Comment: This estimated GFR [...] the following links into your internet browser. [email or web address] Blood specimen (specimen) 02/29/2016 2:42 PM EDT 02/29/2016 2:48 PM EDT Narrative Resulting Agency Comment Spec In Lab Lola Haley DO CHEMISTRY ORDERABL ES Performing Organization Address City/State/[facility] Co de Phone Number 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
--- OUTSIDE RECORDS SUMMARY | 2024-04-16 00:30 | XMS_ITS | Encounter Summary ---
[place] [address] Care Team Providers Care Cane Weigher Name Role Phone Marcio Carranza MD Primary Care Provider +1 -[phone] Encounter Details Date Type Department Care Team (Late st Contact Info) Description 08/14/2010 [place] [address] Eden Reynoso MD [address] [place] [address] Social History Tobacco Use Types Packs/Day Years [...] AM EDT Hospital Encounter Non-Invasive [place] [address] Arrived 04/29/2024 9:50 AM ED[place] [address] Luis Alfredo Velazquez MD [facility] [place] [address] 04/29/2024 9:50 AM [place] [address] Luis lAfredo Velazquez MD [facility] [place] [address] 06/07/2024 2:30 PM EDT TH Visit (TeleHealth) Gastroenterology at [place] [address] Dajuan Rachel MD [facility] [place] [address] 07/02/2024 2:00 PM EDT Appointment Non-Invasive Cardiology Lab [address]1000 Luis Alfredo Velazquez MD [facility] [place] [address] 07/02/2024 4:00 PM EDT Office Visit Cardiology at [place] [phone] Mars Green PA [facility] [place] [address] 07/02/2024 4:40 PM EDT Office Visit Cardiology at [address]1000 Luis Alfredo Velazquez MD [facility] [place] [address] documented as of this encounter Procedures Procedure [...] CRP (08/14/2010 3:52 PM EST) [facility] CRP High Sens 49.9 mg/L [facility] Comment: result rechecked, blr Interpretations: 1) For [...] Reynoso MD CHEMISTRY ORDERABLES Performing Organization Address [facility] Co de Phone Number CERNER MILLENNIUM * (ABNORMAL) FERRITIN (08/14/2010 3:52 PM EST) Ferritin 199(H) 15 - 150 ng/mL CERNER MILLENNIUM Comment: Pediatric reference ranges not verified at [facility], interpret with caution. Reference ranges for females greater than 50 years of age approach values for men, i.e., 30-400 ng/mL. Blood specimen (specimen) 08/14/2010 3:52 PM EST 08/14/2010 4:05 PM EST Eden Reynoso MD CHEMISTRY ORDERABLES Performing Organization Address [facility] de Phone Number CERNER MILLENNIUM * (ABNORMAL) IRON AND TIBC (08/14/2010 3:52 PM EST) Iron 40 30 - 150 mcg/dL CERNER MILLENNIUM TIBC 284 250 - 450 mcg/dL CERNER MILLENNIUM Iron Saturation 14(L) 20 - 50 % CERN ER MILLENNIUM Blood specimen (specimen) 08/14/2010 3:52 PM EST 08/14/2010 4:05 PM EST Eden Reynoso MD CHEMISTRY ORDERABLES Performing Organization Address [facility] de Phone Number CERNER MILLENNIUM * (ABNORMAL) HEPATIC FUNCTION PANEL (08/14/2010 3:52 PM EST) Total Protein 8.3 6.4 - 8.3 gm/dL [...] Reynoso MD CHEMISTRY ORDERABLES Performing Organization Address City/[facility] Co de Phone Number TYSHAWN YOUNGIUM * CK (08/14/2010 3:52 PM EST) CK, Total 135 0 - 160 unit/L CERNER MILLENNIUM Blood specimen (specimen) 08/14/2010 3:52 PM EST 08/14/2010 4:05 PM EST Eden Reynoso MD CHEMISTRY ORDERABLES Performing Organization Address [facility] Phone Number TYSHAWN RICKETTS documented in this encounter Visit Diagnoses Not on filedocumented in this encounter Care Teams Cane Weigher Relationship Specialty Start Date End Date Marcio Carranza MD [address] [place] [address] PCP - General 08/07/10 11/10/17 documented as of this encounter
--- OUTSIDE RECORDS SUMMARY | 2024-04-16 00:30 | XMS_ITS | Encounter Summary ---
Author Organization [facility] [place] [address] Care Team Providers Care Eco Industrial Development Consultant Name Role Phone Marcio Carranza MD Primary Care Provider +1 -[phone] Encounter Details Date Type Department Care Team (Late st Contact Info) Description 08/23/2011 Orders [place] [address] Laura Miles, RN Social History [...] AM EDT Hospital Encounter Non-Invasive [place] [address] Arrived 04/29/2024 9:50 AM [place] [address] Luis Alfredo Velazquez MD [facility] [place] [address] 04/29/2024 9:50 AM EDT Appointment MRI at [place] [address] Luis Alfredo Velazquez MD [facility] [place] [address] 06/07/2024 2:30 PM EDT TH Visit (TeleHealth) Gastroenterology at [place] [address] Dajuan Rachel MD [facility] [place] [address] 07/02/2024 2:00 PM EDT Appointment Non-Invasive Cardiology Lab [place] [address] Luis Alfredo Velazquez MD [facility] [place] [address] 07/02/2024 4:00 PM EDT Office Visit Cardiology at [place] [address] Mars Green PA [facility] [address] 07/02/2024 4:40 PM EDT Office Visit Cardiology at [place] [address] Luis Alfredo Velazquez MD [facility] [place] [address] documented as of this encounter Visit Diagnoses Not on filedocumented in this encounter Care Teams Eco Industrial Development Consultant Relationship Specialty Start Date End Date Marcio Carranza MD [address] [place] [address] PCP - General 08/07/10 11/10/17 documented as of this encounter
--- OUTSIDE RECORDS SUMMARY | 2024-04-16 00:30 | XMS_ITS | Encounter Summary ---
Author Organization [facility] [address] Care Team Providers Care Aquatic Physiotherapist Name Role Phone Marcio Carranza MD Primary Care Provider +1 -[phone] Reason for Visit * Reason Comments Medication Refill Encounter Details Date Type Department Care Team (Late st Contact Info) Description 05/03/2014 [place] [address] Eden Reynoso MD [address] [place] [address] [place] [address] Social History Tobacco Use Types Packs/Day Years [...] Hospital Encounter Non-Invasive Cardiology Lab [place] [phone] Arrived 04/29/2024 9:50 AM EDT Appointment MRI at [address]1000 Luis Alfredo Velazquez MD [facility] [place] [address] 04/29/2024 9:50 AM EDT Appointment MRI at [address]1000 Luis Alfredo Velazquez MD [facility] [place] [address] 06/07/2024 2:30 PM EDT TH Visit (TeleHealth) Gastroenterology at [address]1000 Dajuan Rachel MD [facility] [place] [address] 07/02/2024 2:00 PM EDT Appointment Non-Invasive Cardiology Lab [place] [phone] Luis Alfredo Velazquez MD [facility] [place] [address] 07/02/2024 4:00 PM EDT Office Visit Cardiology at [place] [phone] Mars Green PA [facility] [place] [address] 07/02/2024 4:40 PM EDT Office Visit Cardiology at [address] [address] Luis Alfredo Velazquez MD [facility] [place] [address] documented as of this encounter Visit Diagnoses Not on filedocumented in this encounter Care Teams Aquatic Physiotherapist Relationship Specialty Start Date End Date Marcio Carranza MD [address] [place] [address] PCP - General 08/07/10 11/10/17 documented as of this encounter
--- OUTSIDE RECORDS SUMMARY | 2024-04-16 00:30 | XMS_ITS | Encounter Summary ---
[place] [address] Care Team Providers Care Plating Tank Operator Name Role Phone Marcio Carranza MD Primary Care Provider +1 -[phone] Encounter Details Date Type Department Care Team (Late st Contact Info) Description 10/15/2010 8:45 AM EST Follow-[place] [address] Eden Reynoso MD [address] [place] [address] [place] [address] Discharge Disposition: Home Social History Tobacco Use [...] AM EDT Hospital Encounter Non-[place] [address] Arrived 04/29/2024 9:50 AM [place] [address] Luis Alfredo Velazquez MD [facility] [place] [address] 04/29/2024 9:50 AM EDT Appointment MRI at [address]1000 Luis Alfredo Velazquez MD [facility] [place] [address] 06/07/2024 2:30 PM EDT TH Visit (TeleHealth) Gastroenterology at [place] [address] Dajuan Rachel MD [facility] [place] [address] 07/02/2024 2:00 PM EDT Appointment Non-Invasive Cardiology Lab [address]1000 Luis Alfredo Velazquez MD [facility] [place] [address] 07/02/2024 4:00 PM EDT Office Visit Cardiology at [place] [address] Mars Green PA [facility] [place] [address] 07/02/2024 4:40 PM EDT Office Visit Cardiology at [place] [address] Luis Alfredo Velazquez MD [facility] [place] [address] documented as of this encounter Visit Diagnoses Not on filedocumented in this encounter Care Teams Plating Tank Operator Relationship Specialty Start Date End Date Marcio Carranza MD [address] [place] [address] PCP - General 08/07/10 11/10/17 documented as of this encounter
--- OUTSIDE RECORDS SUMMARY | 2024-04-16 00:30 | XMS_ITS | Encounter Summary ---
Author Organization [facility] Address [facility] [place] [address] Care Team Providers Care Poultry Dressing Worker Name Role Phone Marcio Carranza MD Primary Care Provider +1 -[phone] Encounter Details Date Type Department Care Team (Late st Contact Info) Description 08/15/2010 12:30 PM EST Procedure visit [place] [address] Social History Tobacco Use Types Packs/Day Years [...] AM EDT Hospital Encounter Non-[place] [address] Arrived 04/29/2024 9:50 AM [place] [address] Luis Alfredo Velazquez MD [facility] [place] [address] 04/29/2024 9:50 AM EDT Appointment MRI at [place] [address] Luis Alfredo Velazquez MD [facility] [place] [address] 06/07/2024 2:30 PM EDT TH Visit (TeleHealth) Gastroenterology at [place] [address] Dajuan Rachel MD [facility] [place] [address] 07/02/2024 2:00 PM EDT Appointment Non-Invasive Cardiology Lab [place] [address] Luis Alfredo Velazquez MD [facility] [place] [address] 07/02/2024 4:00 PM EDT Office Visit Cardiology at [place] [address] Mars Green PA [facility] [place] [address] 07/02/2024 4:40 PM EDT Office Visit Cardiology at [place] [address] Luis Alfredo Velazquez MD [facility] [place] [address] documented as of this encounter Visit Diagnoses Not on filedocumented in this encounter Care Teams Poultry Dressing Worker Relationship Specialty Start Date End Date Marcio Carranza MD [address] [place] [address] PCP - General 08/07/10 11/10/17 documented as of this encounter
--- OUTSIDE RECORDS SUMMARY | 2024-04-16 00:30 | XMS_ITS | Encounter Summary ---
Author Organization [facility] [place] [address] Care Team Providers Care Assembly Line Upholsterer Name Role Phone Marcio Carranza MD Primary Care Provider +1 -[phone] Reason for Visit * Reason Onset Date Comments Medication Refill 03/17/2012 Encounter Details Date Type Department Care Team (Late st Contact Info) Description 03/17/2012 Refill [place] [phone] Eden Reynoso MD [address] [place] [address] [place] [address] Social History Tobacco Use Types Packs/Day Years [...] AM EDT Hospital Encounter Non-[place] [address] Arrived 04/29/2024 9:50 AM EDT Appointment MRI at [place] [address] Luis Alfredo Velazquez MD [facility] [place] [address] 04/29/2024 9:50 AM EDT Appointment MRI at [address]1000 Luis Alfredo Velazquez MD [facility] [place] [address] 06/07/2024 2:30 PM EDT TH Visit (TeleHealth) [place] [address] Dajuan Rachel MD [facility] [place] [address] 07/02/2024 2:00 PM EDT Appointment Non-Invasive Cardiology Lab [address]1000 Luis Alfredo Velazquez MD [facility] [place] [place] [address] 07/02/2024 4:00 PM EDT Office Visit Cardiology at [address]1000 Mars Green PA [facility] [place] [address] 07/02/2024 4:40 PM EDT Office Visit Cardiology at [place] [phone] Luis Alfredo Velaqzuez MD [facility] [place] [address] documented as of this encounter Visit Diagnoses Not on filedocumented in this encounter Care Teams Assembly Line Upholsterer Relationship Specialty Start Date End Date Marcio Carranza MD [address] [place] [address] PCP - General 08/07/10 11/10/17 documented as of this encounter
--- OUTSIDE RECORDS SUMMARY | 2024-04-16 00:30 | XMS_ITS | Encounter Summary ---
Author Organization [facility] [place] [address] Care Team Providers Care Footwear Sales Leader Name Role Phone Marcio Carranza MD Primary Care Provider +1 -[phone] Reason for Visit * Reason Onset Date Comments Medication Refill 10/08/2012 Encounter Details Date Type Department Care Team (Late st Contact Info) Description 10/08/2012 Refill [place] [address] Jose Manuel Reynoso MD [address] [place] [address] [place] [address] Spondylitis Social History Tobacco Use Types Packs/Day [...] injection [JOSE MANUEL REYNOSO MD] [facility] pharmacy: [phone] Comment: documented in this encounter Plan of Treatment Upcoming Encounters Date Type Department Care Team (Late st Contact Info) Description 04/19/2024 10:00 AM EDT Hospital Encounter Non-[place] [address] Arrived 04/29/2024 9:50 AM EDT Appointment MRI at [place] [address] Luis Alfredo Velazquez MD [facility] [place] [address] 04/29/2024 9:50 AM EDT Appointment MRI at [place] [address] Luis Alfredo Velazquez MD [facility] [place] [address] 06/07/2024 2:30 PM EDT TH Visit (TeleHealth) Gastroenterology at [place] [address] Dajuan Rachel MD [facility] [place] [address] 07/02/2024 2:00 PM EDT Appointment Non-Invasive Cardiology Lab [place] [phone] Luis Alfredo Velazquez MD [facility] [place] [address] 07/02/2024 4:00 PM EDT Office Visit Cardiology at [address] [address] [place] [facility] [place] [address] 07/02/2024 4:40 PM EDT Office Visit Cardiology at [address] [phone] Luis Alfredo Velazquez MD [facility] [place] [address] documented as of this encounter Visit Diagnoses Diagnosis Spondylitis Unspecified inflammatory spondylopathy documented in this encounter Care Teams Footwear Sales Leader Relationship Specialty Start Date End Date Marcio Carranza MD [address] [place] [address] PCP - General 08/07/10 11/10/17 documented as of this encounter
--- OUTSIDE RECORDS SUMMARY | 2024-04-16 00:30 | XMS_ITS | Encounter Summary ---
Author Organization [facility] [place] [address] Care Team Providers Care Supervisor Boilermaking Shop Name Role Phone Marcio Carranza MD Primary Care Provider +1 -[phone] Reason for Visit * Reason Onset Date Comments Medication Refill 10/12/2012 Encounter Details Date Type Department Care Team (Late st Contact Info) Description 10/12/2012 [place] [address] Eden Reynoso MD [address] [place] [address] [place] [address] Social History Tobacco Use Types Packs/Day Years [...] AM EDT Hospital Encounter Non-[place] [address] Arrived 04/29/2024 9:50 AM EDT Appointment MRI at [place] [address] Luis Alfredo Velazquez MD [facility] [place] [address] 04/29/2024 9:50 AM EDT Appointment MRI at [address]1000 Luis Alfredo Velazquez MD [facility] [address] 06/07/2024 2:30 PM EDT TH Visit (TeleHealth) [place] [address] Dajuan Rachel MD [facility] [place] [address] 07/02/2024 2:00 PM EDT Appointment Non-Invasive Cardiology Lab [address]1000 Luis Alfredo Velazquez MD [facility] [place] [address] 07/02/2024 4:00 PM EDT Office Visit Cardiology at [address]1000 [place] [facility] [address] 07/02/2024 4:40 PM EDT Office Visit Cardiology at [place] [phone] Luis Alfredo Velazquez MD [facility] [place] [address] documented as of this encounter Visit Diagnoses Not on filedocumented in this encounter Care Teams Supervisor Boilermaking Shop Relationship Specialty Start Date End Date Marcio Carranza MD [address] [place] [address] PCP - General 08/07/10 11/10/17 documented as of this encounter
--- OUTSIDE RECORDS SUMMARY | 2024-04-16 00:30 | XMS_ITS | Encounter Summary ---
Author Organization [facility] [place] [place] [address] Care Team Providers Care Aerosol Line Operator Name Role Phone Marcio Carranza MD Primary Care Provider +1 -[phone] Reason for Visit * Reason Comments Hepatic Disease Encounter Details Date Type Department Care Team (Late st Contact Info) Description 02/21/2011 12:00 PM EDT Follow-[place] [phone] Marc Chan MD [facility] [place] [address] Ulcerative colitis; MÉNDEZ (nonalcoholic steatohepatitis); Lipid disorder [...] and Hepatology Clinic Provider: Marc Chan MD ([id number]) Referral Doctor: Marcio Carranza MD [facility] [address] [place] [address] Problem List: 1. MÉNDEZ (stage 2 in [...] conclusion of the visit. Marc Chan MD Marketing Secretarybooth cleaner & Director of End Stage Liver Care Division of Gastroenterology and Hepatology tel: fax: [email or web address] documented in this encounter Plan of Treatment Upcoming Encounters Date Type Department Care Team (Late st Contact Info) Description 04/19/2024 10:00 AM EDT Hospital Encounter Non-[place] [address] Arrived 04/29/2024 9:50 [place] [phone] Luis Alfredo Velazquez MD [facility] [place] [address] 04/29/2024 9:50 AM EDT Appointment MRI at [place] [address] Luis Alfredo Velazquez MD [facility] [place] [address] 06/07/2024 2:30 PM EDT TH Visit (TeleHealth) Gastroenterology at [place] [address] Dajuan Rachel MD [facility] [place] [address] 07/02/2024 2:00 PM EDT Appointment Non-Invasive Cardiology Lab [address]1000 Luis Alfredo Velazquez MD [facility] [place] [place] [address] 07/02/2024 4:00 PM EDT Office Visit Cardiology at [place] [address] [place] [facility] [place] [address] 07/02/2024 4:40 PM EDT Office Visit Cardiology at [address]1000 Lusi Alfredo Velazquez MD [facility] [place] [address] documented as of this encounter Visit Diagnoses Diagnosis Ulcerative colitis Ulcerative colitis, unspecified MÉNDEZ (nonalcoholic steatohepatitis) Other chronic nonalcoholic liver disease Lipid disorder Unspecified disorder of lipoid metabolism documented in this encounter Care Teams Aerosol Line Operator Relationship Specialty Start Date End Date Marcio Carranza MD [address] [place] [address] PCP - General 08/07/10 11/10/17 documented as of this encounter
--- OUTSIDE RECORDS SUMMARY | 2024-04-16 00:30 | XMS_ITS | Encounter Summary ---
Author Organization [facility] Address [facility] [place] [address] Care Team Providers Care Business Services Analyst Name Role Phone Marcio Carranza MD Primary Care Provider +1 -[phone] Encounter Details Date Type Department Care Team (Late st Contact Info) Description 01/14/2011 Orders [place] [address] Marc Chan MD [facility] DR GASTROENTER[place] [address] Social History Tobacco Use Types Packs/Day Years [...] AM EDT Hospital Encounter Non-[place] [address] Arrived 04/29/2024 9:50 AM EDT Appointment MRI at [address]1000 Luis Alfredo Velazquez MD [facility] [place] [address] 04/29/2024 9:50 AM EDT Appointment MRI at [place] [phone] Luis Alfredo Velazquez MD [facility] [place] [address] 06/07/2024 2:30 PM EDT TH Visit (TeleHealth) Gastroenterology at [address]1000 Dajuan Rachel MD [facility] [place] [address] 07/02/2024 2:00 PM EDT Appointment Non-Invasive Cardiology Lab [address]1000 Luis Alfredo Velazquez MD [facility] [place] [address] 07/02/2024 4:00 PM EDT Office Visit Cardiology at [place] [phone] [place] [facility] [place] [address] 07/02/2024 4:40 PM EDT Office Visit Cardiology at [place] [phone] Luis Alfredo Velazquez MD [facility] [place] [address] documented as of this encounter Visit Diagnoses Not on filedocumented in this encounter Care Teams Business Services Analyst Relationship Specialty Start Date End Date Marcio Carranza MD [address] [place] [address] PCP - General 08/07/10 11/10/17 documented as of this encounter
--- OUTSIDE RECORDS SUMMARY | 2024-04-16 00:30 | XMS_ITS | Encounter Summary ---
Author Organization [facility] [place] [address] Care Team Providers Care Feed Weigher Name Role Phone Marcio Carranza MD Primary Care Provider +1 -[phone] Reason for Visit * Reason Comments Follow-up Spondylitis; Ankylosing Encounter Details Date Type Department Care Team (Late st Contact Info) Description 02/21/2011 9:45 AM EDT Follow-[place] [phone] Eden Reynoso MD [address] [place] [address] [place] [address] Spondylitis (Primary Dx); Enteropathic arthropathy Discharge Disposition: [...] she is seeing Dr. Chan here at [facility]. She started on the Humira late last [...] EDT Hospital Encounter Non-Invasive Cardiology Lab [place] [phone] Arrived 04/29/2024 9:50 AM EDT Appointment MRI at [place] [address] Luis Alfredo Velaqzuez MD [facility] [place] [address] 04/29/2024 9:50 AM EDT Appointment MRI at [place] [address] Luis Alfredo Velazquez MD [facility] [place] [address] 06/07/2024 2:30 PM EDT TH Visit (TeleHealth) Gastroenterology at [place] [address] Dajuan Rachel MD [facility] [place] [address] 07/02/2024 2:00 PM EDT Appointment Non-Invasive [place] [address] Luis Alfredo Velazquez MD [facility] [place] [address] 07/02/2024 4:00 PM EDT Office Visit Cardiology at [place] [address] [place] [facility] [place] [address] 07/02/2024 4:40 PM EDT Office Visit Cardiology at [place] [address] Luis Alfredo Velazquez MD [facility] [place] [address] documented as of this encounter Visit Diagnoses Diagnosis Spondylitis- Primary 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
--- OUTSIDE RECORDS SUMMARY | 2024-04-16 00:30 | XMS_ITS | Encounter Summary ---
Author Organization [facility] [place] [address] Care Team Providers Care Region Manager Name Role Phone Marcio Carranza MD Primary Care Provider +1 -[phone] Encounter Details Date Type Department Care Team (Latest Contact Info) Description 01/02/2011 7:47 AM EDT - 01/02/2011 11:15 AM EDT Hospital En[place] [phone] Yaquelin Chan MD [facility] DR GASTROENTER[place] [address] Discharge Disposition: Home Social History Tobacco Use [...] AM EDT Hospital Encounter Non-[place] [phone] Arrived 04/29/2024 9:50 [place] [address] [address] [facility] [address] [place] [address] 04/29/2024 9:50 AM EDT Appointment MRI at [address] Luis Alfredo Velazquez MD [facility] [place] [place] [address] 06/07/2024 2:30 PM EDT TH Visit (TeleHealth) Gastroenterology at [address] [facility] [place] [address] 07/02/2024 2:00 PM EDT Appointment Non-Invasive [place] [address] [address] [facility] [place] [place] [address] 07/02/2024 4:00 PM EDT Office Visit Cardiology at [place] [phone] [facility] [place] [address] 07/02/2024 4:40 PM EDT Office Visit Cardiology at [place] [phone] [address] [facility] [place] [address] documented as of this encounter Procedures Procedure [...] 10:14 AM EDT) Surgical Pathology Report [id number] ? Location: 4T The signing pathologist has [...] CR-0 01/04/11 AAS 01/04/11 Verified by: ? Stephanie HYMAN, Dg [place] ?Pathologist ?(Electronic Signature) The attending pathologist whose signature appears on this report has reviewed all diagnostic slides and has edited the gross and/or microscopic portion of the report in rendering the final pathologic diagnosis. [facility] 01/02/2011 10:1 4 AM EDT Yaquelin Chan MD PATHOLOGY/CYTOLOGY O RDERABLES Performing Organization Address City/State/[facility] Co de Phone Number [facility] * SURGICAL PATHOLOGY REPORT (01/02/2011 10:14 AM EDT) Surgical Pathology Report ? [facility] ? Provider: ?? YAQUELIN CHAN ? Pt. Name: ?? JENNIFER PEREZ ? Acc #: ?[id number] ?Pt. ? Col Date: ?? 01/02/2011 ? [...] Tissue Description: ?? Soft, brown tissues. ? [facility] ? Provider: ?? YAQUELIN CHAN ? Pt. Name: ?? ANA JENNIFER Dajuan ? Acc #: ?[id number] ?Pt. ? Col Date: ?? 01/02/2011 ? [...] AM EDT Yaquelin Chan MD PATHOLOGY/CYTOLOGY O RDERADARLEEN [facility] * COLONOSCOPY (01/02/2011 9:07 AM EDT) COLONOSCOPY [facility] Endoscopy ___ Patient Name: Jennifer Perez ? Procedure Date: 01/02/2011 09:07:07 AM ? Date of : 1960 ? Age: 50 ? ___ Procedure: ? Colonoscopy Indications: ? High risk colon cancer surveillance: ? Ulcerative pancolitis Providers: ? Yauqelin Chan MD, Ramya Guido, ? RN, Nathaniel Oliva, Field Artillery Radar Operator Referring : ?Marcio Carranza MD, [place]ajuan [...] Fri01/02/11 at 09, Sleep, Intra-Operative (Intra-Procedure), Routine 927 (Given - Provid er: Ramya Guido RN) midazolam (VERSED) injection (COMPLETED) Intravenous, ONCE PRN, 1 dose, Starting on Fri01/02/11 at 0933, Until Fri01/02/11 at 0933, Sleep, Intra-Operative (Intra-Procedure), Routine 932 (Given - Provid er: Ramya Guido RN) documented in this encounter Care Teams Region Manager Relationship Specialty Start Date End Date Marcio Carranza MD [address] [place] [address] PCP - General 08/07/10 11/10/17 documented as of this encounter
--- OUTSIDE RECORDS SUMMARY | 2024-04-16 00:30 | XMS_ITS | Encounter Summary ---
[place] [address] Care Team Providers Care Tank Systems Maintainer Name Role Phone Marcio Carranza MD Primary Care Provider +1 -[phone] Encounter Details Date Type Department Care Team (Late st Contact Info) Description 08/14/2010 2:45 PM EST Follow-[place] [address] Eden Reynoso MD [address] [place] [address] [place] [address] Social History Tobacco Use Types Packs/Day Years [...] AM EDT Hospital Encounter Non-Invasive [place] [address] Arrived 04/29/2024 9:50 AM EDT [place] [address] Luis Alfredo Velazquez MD [facility] [place] [address] 04/29/2024 9:50 AM EDT Appointment MRI at [place] [address] Luis Alfredo Velazquez MD [facility] [place] [address] 06/07/2024 2:30 PM EDT TH Visit (TeleHealth) Gastroenterology at [place] [address] Dajuan Rachel MD [facility] [place] [address] 07/02/2024 2:00 PM EDT Appointment Non-Invasive Cardiology Lab [place] [address] Luis Alfredo Velazquez MD [facility] [place] [address] 07/02/2024 4:00 PM EDT Office Visit Cardiology at [place] [address] [place] [facility] [place] [address] 07/02/2024 4:40 PM EDT Office Visit Cardiology at [place] [address] Luis Alfredo Velazquez MD [facility] [place] [address] documented as of this encounter Visit Diagnoses Not on filedocumented in this encounter Care Teams Tank Systems Maintainer Relationship Specialty Start Date End Date Marcio Carranza MD [address] [place] [address] PCP - General 08/07/10 11/10/17 documented as of this encounter
--- OUTSIDE RECORDS SUMMARY | 2024-04-16 00:30 | XMS_ITS | Encounter Summary ---
Author Organization [facility] Address [facility] [place] [address] Care Team Providers Care Mortgage Counselor Name Role Phone Marcio Carranza MD Primary Care Provider +1 -[phone] Encounter Details Date Type Department Care Team (Late st Contact Info) Description 08/14/2010 2:00 PM EST [place] [address] Marc Chan MD [facility] DR [place] [address] Social History Tobacco Use Types Packs/Day Years [...] AM EDT Hospital Encounter Non-Invasive [place] [address] Arrived 04/29/2024 9:50 [place] [address] Luis Alfredo Velazquez MD [facility] [place] [address] 04/29/2024 9:50 AM EDT Appointment MRI at [place] [address] Luis Alfredo Velazquez MD [facility] [place] [address] 06/07/2024 2:30 PM EDT TH Visit (TeleHealth) Gastroenterology at [place] [address] Dajuan Rachel MD [facility] [address] 07/02/2024 2:00 PM EDT Appointment Non-Invasive Cardiology Lab [place] [address] Luis Alfredo Velazquez MD [facility] [place] [address] 07/02/2024 4:00 PM EDT Office Visit Cardiology at [place] [address] [place] [facility] [place] [address] 07/02/2024 4:40 PM EDT Office Visit Cardiology at [place] [address] Luis Alfredo Velazquez MD [facility] [address] [place] [address] documented as of this encounter Visit Diagnoses Not on filedocumented in this encounter Care Teams Mortgage Counselor Relationship Specialty Start Date End Date Marcio Carranza MD [address] [place] [address] PCP - General 08/07/10 11/10/17 documented as of this encounter
--- OUTSIDE RECORDS SUMMARY | 2024-04-16 00:30 | XMS_ITS | Encounter Summary ---
Author Organization [facility] Address [facility] [place] [address] Care Team Providers Care Entertainment Dancer Name Role Phone Marcio Carranza MD Primary Care Provider +1 -[phone] Encounter Details Date Type Department Care Team (Late st Contact Info) Description 04/20/2014 Telephone Dermatology at [facility] [address] [place] [phone] July Pack MD [facility] DR ALIZE [place] [address] Social History Tobacco Use Types Packs/Day Years [...] significant swelling. Patient aware to contact on-call tonnage compilation clerk tonight if she worsens. MALI DUPREE LPN [...] AM EDT Hospital Encounter Non-[place] [address] Arrived 04/29/2024 9:50 AM EDT Appointment MRI at [address]1000 Luis Alfredo Velazquez MD [facility] [place] [address] 04/29/2024 9:50 AM EDT Appointment MRI at [address]1000 Luis Alfredo Velazquez MD [facility] [place] [address] 06/07/2024 2:30 PM EDT TH Visit (TeleHealth) [place] [address] Dajuan Rachel MD [facility] [place] [address] 07/02/2024 2:00 PM EDT Appointment Non-Invasive Cardiology Lab [place] [phone] Luis Alfredo Velazquez MD [facility] [place] [address] 07/02/2024 4:00 PM EDT Office Visit Cardiology at [address] [address] [place] [facility] [place] [address] 07/02/2024 4:40 PM EDT Office Visit Cardiology at [address] [address] Luis Alfredo Velazquez MD [facility] [place] [address] documented as of this encounter Visit Diagnoses Not on filedocumented in this encounter Care Teams Entertainment Dancer Relationship Specialty Start Date End Date Marcio Carranza MD [address] [place] [address] PCP - General 08/07/10 11/10/17 documented as of this encounter
--- OUTSIDE RECORDS SUMMARY | 2024-04-16 00:30 | XMS_ITS | Encounter Summary ---
Author Organization [facility] [place] [address] Care Team Providers Care Health Promotion Specialist Name Role Phone Marcio Carranza MD Primary Care Provider +1 -[phone] Reason for Visit * Reason Onset Date Comments Medication Refill 01/22/2011 Encounter Details Date Type Department Care Team (Late st Contact Info) Description 01/22/2011 Refill [place] [address] Eden Reynoso MD [address] [place] [address] [place] [address] Spondylitis Social History Tobacco Use Types Packs/Day [...] AM EDT Hospital Encounter Non-[place] [address] Arrived 04/29/2024 9:50 AM EDT Appointment MRI at [place] [address] Luis Alfredo Velazquez MD [facility] [place] [address] 04/29/2024 9:50 AM EDT Appointment MRI at [place] [address] Luis Alfredo Velazquez MD [facility] [place] [address] 06/07/2024 2:30 PM EDT TH Visit (TeleHealth) Gastroenterology at [address]1000 Dajuan Rachel MD [facility] [place] [address] 07/02/2024 2:00 PM EDT Appointment Non-Invasive Cardiology Lab [place] [address] Luis Alfredo Velazquez MD [facility] [place] [address] 07/02/2024 4:00 PM EDT Office Visit Cardiology at [place] [address] [place] PA [facility] [place] [address] 07/02/2024 4:40 PM EDT Office Visit Cardiology at [address]1000 Luis Alfredo Velazquez MD [facility] [place] [address] documented as of this encounter Visit Diagnoses Diagnosis Spondylitis Unspecified inflammatory spondylopathy documented in this encounter Care Teams Health Promotion Specialist Relationship Specialty Start Date End Date Marcio Carranza MD [address] [place] [address] PCP - General 08/07/10 11/10/17 documented as of this encounter
--- OUTSIDE RECORDS SUMMARY | 2024-04-16 00:30 | XMS_ITS | Encounter Summary ---
Author Organization [facility] [place] [address] Care Team Providers Care Bread Pan Greaser Name Role Phone Marcio Carranza MD Primary Care Provider +1 -[phone] Reason for Visit * Reason Comments Medication Refill Encounter Details Date Type Department Care Team (Late st Contact Info) Description 04/03/2012 Refill [place] [address] Eden Reynoso MD [address] [place] [address] [place] [address] Social History Tobacco Use Types Packs/Day Years [...] Hospital Encounter Non-Invasive Cardiology Lab [place] [phone] Arrived 04/29/2024 9:50 AM EDT Appointment MRI at [address] Luis Alfredo Velazquez MD [facility] [place] [address] 04/29/2024 9:50 AM EDT Appointment MRI at [place] [address] Luis Alfredo Velazquez MD [facility] [place] [address] 06/07/2024 2:30 PM EDT TH Visit (TeleHealth) Gastroenterology at [place] [address] Dajuan Rachel MD [facility] [place] [address] 07/02/2024 2:00 PM EDT Appointment Non-Invasive Cardiology Lab [place] [phone] Luis Alfredo Velazquez MD [facility] [place] [address] 07/02/2024 4:00 PM EDT Office Visit Cardiology at [place] [phone] Mars Green PA [facility] [place] [address] 07/02/2024 4:40 PM EDT Office Visit Cardiology at [address] [address] Luis Alfredo Velazquez MD [facility] [place] [address] documented as of this encounter Visit Diagnoses Not on filedocumented in this encounter Care Teams Bread Pan Greaser Relationship Specialty Start Date End Date Marcio Carranza MD [address] [place] [address] PCP - General 08/07/10 11/10/17 documented as of this encounter
--- OUTSIDE RECORDS SUMMARY | 2024-04-16 00:30 | XMS_ITS | Encounter Summary ---
Author Organization [facility] Address [facility] [place] [address] Care Team Providers Care Prototype Sewer Name Role Phone Marcio Carranza MD Primary Care Provider +1 -[phone] Reason for Visit * Reason Comments Follow-up Encounter Details Date Type Department Care Team (Late st Contact Info) Description 05/11/2014 8:20 AM EDT Office Visit Dermatology at [facility] [address] [place] [address] July Dumont MD [facility] [address] [place] [address] Neoplasm of unspecified nature of bone, soft [...] or concerns, please call the office at [phone]. If it is after 5PM, or a holiday or weekend, please call [phone] and ask for the Angio Technologist on-call. documented in this encounter Progress Notes [...] PATIENT FOLLOW-UP Date of service: 05/11/2014 Jennifer Perez : 1960 Dermatology Resident Note: July Dumont MD Chief Problem: Chief Complaint Patient presents with ??? Follow-up Ms. Jennifer Perez is a 54 y.o. female. This is an established patient to me, last seen on 04/18/2014. HPI: Ms. Perez presents for a new rash. Patient reports [...] as sporotrichosis- patient agreed to biopsy to leveler helper in diagnosis. May need additional biopsy [...] encounter. July Dumont MD Resident in Dermatology [facility] Patient seen and evaluated with staff manager media: Haley Soto MD Section of Dermatology [facility] documented in this encounter Plan of Treatment Upcoming Encounters Date Type Department Care Team (Late st Contact Info) Description 04/19/2024 10:00 AM EDT Hospital Encounter Non[place] [address] Arrived 04/29/2024 9:50 AM EDT Appointment MRI at [place] [phone] Luis Alfredo Velazquez MD [facility] [place] [address] 04/29/2024 9:50 AM EDT Appointment MRI at [place] [phone] Luis Alfredo Velazquez MD [facility] [place] [address] 06/07/2024 2:30 PM EDT TH Visit (TeleHealth) [place] [address] Dajuan Rachel MD [facility] [place] [address] 07/02/2024 2:00 PM EDT Appointment Non-Invasive Cardiology Lab [place] [phone] Luis Alfredo Velazquez MD [facility] [place] [address] 07/02/2024 4:00 PM EDT Office Visit Cardiology at [address] [phone] Mars Green PA [facility] [place] [address] 07/02/2024 4:40 PM EDT Office Visit Cardiology at [address] [phone] Luis Alfredo Velazquez MD [facility] [place] [address] documented as of this encounter Procedures Procedure Name Priority Date/Time Associated Diagnosis Comments SPECIMEN TO PATHOLOGY (NON-OR) Routine 05/11/2014 9:29 AM EDT Neoplasm of unspecified nature of bone, soft tissue, and skin SURGICAL PATHOLOGY REPORT Routine 05/11/2014 9:29 AM EDT documented in this encounter Results * Surgical Pathology Report (05/11/2014 9:29 AM EDT) FINAL DIAGNOSIS (AP) ? [facility] ? Provider: ?? JULY DUMONT ? Pt. Name: ?? JENNIFER PEREZ ? Acc #: ?[id number] ? Pt. ? Col Date: ?? 05/11/2014 [...] A - Labeled/Fixative: Patient's name, formalin. ? [facility] ? Provider: ?? JULY DUMONT ? Pt. Name: ?? JENNIFER PEREZ ? Acc #: ?[id number] ? Pt. ? Col Date: ?? 05/11/2014 [...] ? as sporotrichosis 05/13/2014 12:42 PM EDT [facility] SPECIMEN FROM SKIN / Unknown 05/11/2014 9:29 AM EDT 05/11/2014 9:29 AM EDT July Dumont MD PATHOLOGY/CYTOLOGY O RDERABLES TYSHAWN RICKETTS [facility] [place] [address] * Specimen to Pathology (NON-OR) (05/11/2014 9:29 AM EDT) AP Specimen 05/11/2014 9:29 AM EDT 05/11/2014 9:29 AM EDT Narrative TYSHAWN RICKETTS - 05/11/2014 9:29 AM EDT Specimen requisition ordered. ??Separate Pathology report to follow Haley Soto MD PATHOLOGY/CYTOLOGY ORDERABLES Performing Organization Address [facility] Co de Phone Number TYSHAWN RICKETTS documented in this encounter Visit Diagnoses Diagnosis Neoplasm of unspecified nature of bone, soft tissue, and skin- Primary documented in this encounter Care Teams Prototype Sewer Relationship Specialty Start Date End Date Marcio Carranza MD [address] [place] [address] PCP - General 08/07/10 11/10/17 documented as of this encounter
--- OUTSIDE RECORDS SUMMARY | 2024-04-16 00:30 | XMS_ITS | Encounter Summary ---
Author Organization [facility] Address [facility] [place] [address] Care Team Providers Care Personal Care Home Administrator Name Role Phone Marcio Carranza MD Primary Care Provider +1 [phone] Encounter Details Date Type Department Care Team (Latest Contact Info) Description 04/22/2012 2:58 PM EDT - 04/22/2012 11:59 PM EDT Hospital Encounter XRay at [facility] [address] [place] [phone] CLINIC, Marcio Hoyos MD [address] [place] [address] Discharge Disposition: Home Social History [...] AM EDT Hospital Encounter Non-Invasive [place] [address] Arrived 04/29/2024 9:50 AM EDT Appointment MRI at [place] [address] Luis Alfredo Velazquez MD [facility] [place] [address] 04/29/2024 9:50 AM EDT Appointment MRI at [address]1000 Luis Alfredo Velazquez MD [facility] [place] [address] 06/07/2024 2:30 PM EDT TH Visit (TeleHealth) Gastroenterology at [address]1000 Dajuan Rachel MD [facility] [place] [address] 07/02/2024 2:00 PM EDT Appointment Non-Invasive Cardiology Lab [address]1000 Luis Alfredo Velazquez MD [facility] [place] [address] 07/02/2024 4:00 PM EDT Office Visit Cardiology at [place] [address] Mars Green PA [facility] [place] [address] 07/02/2024 4:40 PM EDT [place] [address] Luis Alfredo Velazquez MD [facility] [place] [address] documented as of this encounter Procedures Procedure [...] measurements and plots are available in e cuaQea under the imaging tab. Procedure Note Dimple [...] e DHunder the imaging tab. Ivelisse Rubin TELEPHONE SERVICES SALES REPRESENTATIVE IMG DEXA ORDERABLES documented in this encounter Visit Diagnoses Not on filedocumented in this encounter Care Teams Personal Care Home Administrator Relationship Specialty Start Date End Date Marcio Carranza MD [address] [place] [address] PCP - General 08/07/10 11/10/17 documented as of this encounter
--- OUTSIDE RECORDS SUMMARY | 2024-04-16 00:30 | XMS_ITS | Encounter Summary ---
Author Organization [facility] [place] [address] Care Team Providers Care Bliss Press Operator Name Role Phone Marcio Carranza MD Primary Care Provider +1 [phone] Encounter Details Date Type Department Care Team (Late st Contact Info) Description 08/15/2010 1:00 PM EST [place] [address] [address] STARR Discharge Disposition: Home [...] AM EDT Hospital Encounter Non-[place] [address] Arrived 04/29/2024 9:50 AM [place] [address] Luis Alfredo Velazquez MD [facility] [place] [address] 04/29/2024 9:50 AM EDT Appointment MRI at [place] [address] Luis Alfredo Velazquez MD [facility] [place] [address] 06/07/2024 2:30 PM EDT TH Visit (TeleHealth) Gastroenterology at [place] [address] Dajuan Rachel MD [facility] [place] [address] 07/02/2024 2:00 PM EDT Appointment Non-Invasive Cardiology Lab [address]1000 Luis Alfredo Velazquez MD [facility] [place] [address] 07/02/2024 4:00 PM EDT Office Visit Cardiology at [address]1000 Mars Green PA [facility] [place] [address] 07/02/2024 4:40 PM EDT Office Visit Cardiology at [address]1000 Luis Alfredo Velazquez MD [facility] [place] [address] documented as of this encounter Visit Diagnoses Not on filedocumented in this encounter Care Teams Bliss Press Operator Relationship Specialty Start Date End Date Marcio Carranza MD [address] [place] [address] PCP - General 08/07/10 11/10/17 documented as of this encounter
--- OUTSIDE RECORDS SUMMARY | 2024-04-16 00:30 | XMS_ITS | Encounter Summary ---
Author Organization [facility] Address [facility] [place] [address] Care Team Providers Care Resort Housekeeper Name Role Phone Marcio Carranza MD Primary Care Provider [phone] [phone] Reason for Visit * Reason Comments Skin Check Encounter Details Date Type Department Care Team (Late st Contact Info) Description 04/18/2014 2:30 PM EDT Office Visit Dermatology at [facility] [address] [place] [phone] Juyl Pack MD [facility] [address] [place] [address] Psoriasis (Primary Dx); Candidal intertrigo Discharge Disposition: [...] Ulcerative colitis 556.9 ??? DIFFICULT AIRWAY ??? MÉNEDZ (nonalcoholic steatohepatitis) 571.8 ??? Lipid disorder 272.9 [...] encounter. July Pack MD Resident in Dermatology [facility] Patient seen and evaluated with staff database dba: Ruy Neff MD Section of Dermatology [facility] documented in this encounter Plan of Treatment Upcoming Encounters Date Type Department Care Team (Late st Contact Info) Description 04/19/2024 10:00 AM EDT Hospital Encounter Non-Invasive [place] [address] Arrived 04/29/2024 9:50 [place] [address] Luis Alfredo Velazquez MD [facility] [place] [address] 04/29/2024 9:50 AM [place] [address] Luis Alfredo Velazquez MD [facility] [place] [address] 06/07/2024 2:30 PM EDT TH Visit (TeleHealth) [place] [address] Dajuan Rachel MD [facility] [place] [address] 07/02/2024 2:00 PM EDT Appointment Non-Invasive [place] [address] Luis Alfredo Velazquez MD [facility] [place] [address] 07/02/2024 4:00 PM EDT Office Visit Cardiology at [address] [phone] Mars Green PA [facility] [place] [address] 07/02/2024 4:40 PM EDT Office Visit Cardiology at [address] [address] Luis Alfredo Velazquez MD [facility] [place] [address] documented as of this encounter Visit Diagnoses Diagnosis Psoriasis- Primary Other psoriasis Candidal intertrigo Candidiasis of skin and nails documented in this encounter Care Teams Resort Housekeeper Relationship Specialty Start Date End Date Marcio Carranza MD [address] [place] [address] PCP - General 08/07/10 11/10/17 documented as of this encounter
--- OUTSIDE RECORDS SUMMARY | 2024-04-16 00:30 | XMS_ITS | Encounter Summary ---
Author Organization [facility] Address [facility] [place] [address] Care Team Providers Care Environmental Planning Engineer Name Role Phone Marcio Devlin DO Primary Care Provider [phone] Encounter Details Date Type Department Care Team (Late st Contact Info) Description 04/04/2010 Orders [place] [address] Marc Chan MD [facility] [place] [address] Social History Tobacco Use Types Packs/Day Years Used Date Smoking Tobacco: Never Assessed [facility] Utilities Answer Date Recorded In the past 12 months has [employer], gas, oil, or water [employer] threatened to shut off services in your [...] in a detention (including now)? No 10/21/2023 IPV Inpatient Questions [...] AM EDT Hospital Encounter Non-Invasive [place] [address] Arrived 04/29/2024 9:50 AM [place] [address] Luis Alfredo Velazquez MD [facility] [place] [address] 04/29/2024 9:50 AM [place] [address] Luis Alfredo Velazquez MD [facility] [place] [place] [address] 06/07/2024 2:30 PM EDT TH Visit (TeleHealth) Gastroenterology at [place] [phone] Dajuan Rachel MD [facility] [place] [address] 07/02/2024 2:00 PM EDT Appointment Non-Invasive Cardiology Lab [place] [phone] Luis Alfredo Velazquez MD [facility] [place] [address] 07/02/2024 4:00 PM EDT Office Visit Cardiology at [place] [phone] Mars Green PA [facility] [address] [place], [place] [address] 07/02/2024 4:40 PM EDT Office Visit Cardiology at [address] [address] Luis Alfredo Velazquez MD [facility] [place] [address] documented as of this encounter Procedures Procedure Name Priority Date/Time Associated Diagnosis Comments SURGICAL PATHOLOGY REPORT Routine 04/04/2010 10:31 AM EDT documented in this encounter Results * Surgical Pathology Report (04/04/2010 10:31 AM EDT) Surgical Pathology Report [id number] ? Location: 4T The signing pathologist has [...] rendering the final pathologic diagnosis. TYSHAWN RICKETTS 04/04/2010 10:3 1 AM EDT Marc Chan MD PATHOLOGY/CYTOLOGY O IRMA Performing Organization Address City/State/[facility] Co de Phone Number [facility] documented in this encounter Visit Diagnoses Not on filedocumented in this encounter Care Teams Environmental Planning Engineer Relationship Specialty Start Date End Date Marcio Devlin DO [address] [place] [address] PCP - General Family Medicine 11/11/17 documented as of this encounter
--- OUTSIDE RECORDS SUMMARY | 2024-04-16 00:30 | XMS_ITS | Encounter Summary ---
Author Organization [facility] [place] [address] Care Team Providers Care Bridge Worker Name Role Phone Marcio Carranza MD Primary Care Provider [phone] Reason for Visit * Reason Comments Medication Refill Encounter Details Date Type Department Care Team (Late st Contact Info) Description 10/28/2013 Ref[place] [address] Eden Reynoso MD [address] [place] [address] [place] [address] Social History Tobacco Use Types Packs/Day Years [...] AM EDT Hospital Encounter Non-[place] [address] Arrived 04/29/2024 9:50 AM EDT Appointment MRI at [address]1000 Luis Alfredo Velazquez MD [facility] [place] [address] 04/29/2024 9:50 AM EDT Appointment MRI at [address]1000 Luis Alfredo Velazquez MD [facility] [place] [address] 06/07/2024 2:30 PM EDT TH Visit (TeleHealth) Gastroenterology at [address]1000 Dajuan Rachel MD [facility] [place] [address] 07/02/2024 2:00 PM EDT Appointment Non-Invasive Cardiology Lab [address]1000 Luis Alfredo Velazquez MD [facility] [place] [place] [address] 07/02/2024 4:00 PM EDT Office Visit Cardiology at [place] [phone] Mars Green PA [facility] [place] [address] 07/02/2024 4:40 PM EDT Office Visit Cardiology at [place] [phone] Luis Alfredo Velazquez MD [facility] [place] [address] documented as of this encounter Visit Diagnoses Not on filedocumented in this encounter Care Teams Bridge Worker Relationship Specialty Start Date End Date Marcio Carranza MD [address] [place] [address] PCP - General 08/07/10 11/10/17 documented as of this encounter
--- OUTSIDE RECORDS SUMMARY | 2024-04-16 00:30 | XMS_ITS | Encounter Summary ---
Author Organization [facility] [place] [address] Care Team Providers Care Ornamental Rail Installer Name Role Phone Marcio Carranza MD Primary Care Provider [phone] Reason for Visit * Reason Comments Ulcerative Colitis Encounter Details Date Type Department Care Team (Late st Contact Info) Description 03/11/2011 10:00 AM EDT [place] [phone] Dajuan Rachel MD [facility] [place] [address] Ulcerative colitis (Primary Dx) Discharge Disposition: Home [...] disease Colonoscopy 09/19/08 (Dr. Shady Luz at [facility]). Areas of skip inflammation in transverse, descending, & rectosigmoid. Upon retroflexion, a rectal mucosal tear requiring subsequent admission for antibiotics. Biopsies: normal ileum, non- specific eosinophilic infiltration of the cecum, chronic inactive colitis in the descending, rectum, sigmoid, and rectum. The transverse colon revealed moderate to severe chronic, active colitis. Last colonoscopy 01/03/2011 (Dr. Marc Chan) - hkce-bz-yiftpjkg inflammation rectum to cecum with aninflammatory sigmoid polyp Ankylosing spondylitis diagnosed ~1991; also history of iritis ??? DIFFICULT AIRWAY ??? MÉNDEZ (nonalcoholic steatohepatitis) ??? Lipid disorder ??? Ankylosing spondylitis ??? Hypertension ??? GERD (gastroesophageal reflux disease) Subjective: LEE ANN Funes is a 50 y.o. woman with a long history of ulcerative colitis who [facility] the [facility]. [...] her last colonoscopy in December. There was akgx-rj-awqxhske chronic pancolitis. Biopsiesshowed no dysplasia, and there [...] office one month thereafter. Freddy Rachel MD Payroll Benefits Administratorglass forming engineer Section of Gastroenterology [place] [address] CC: MARCIO CARRANZA MD [address] [place] [address] MARC CHAN MD [facility] documented in this encounter Plan of Treatment Upcoming Encounters Date Type Department Care Team (Late st Contact Info) Description 04/19/2024 10:00 AM EDT Hospital Encounter Non-Invasive [place] [address] Arrived 04/29/2024 9:50 AM [place] [address] Luis Alfredo Velazquez MD [facility] [place] [address] 04/29/2024 9:50 AM EDT Appointment MRI at [place] [address] Luis Alfredo Velazquez MD [facility] [place] [address] 06/07/2024 2:30 PM EDT TH Visit (TeleHealth) Gastroenterology at [place] [address] Dajuan Rachel MD [facility] [place] [address] 07/02/2024 2:00 PM EDT Appointment Non-Invasive Cardiology Lab [place] [address] Luis Alfredo Velazquez MD [facility] [place] [address] 07/02/2024 4:00 PM EDT Office Visit Cardiology at [place] [address] Mars Green PA [facility] [place] [address] 07/02/2024 4:40 PM EDT Office Visit Cardiology at [place] [address] Luis Alfredo Velazquez MD [facility] [place] [address] documented as of this encounter Visit Diagnoses Diagnosis Ulcerative colitis- Primary Ulcerative colitis, unspecified documented in this encounter Care Teams Ornamental Rail Installer Relationship Specialty Start Date End Date Marcio Carranza MD [address] [place] [address] PCP - General 08/07/10 11/10/17 documented as of this encounter
--- OUTSIDE RECORDS SUMMARY | 2024-04-16 00:30 | XMS_ITS | Encounter Summary ---
Author Organization Formerly [facility] Address [facility] [place] [address] Care Team Providers Care Gender Studies Professor Name Role Phone Kaylie Carranza MD Primary Care Provider +1 -[phone] Reason for Visit * Reason Comments Follow-up Encounter Details Date Type Department Care Team (Late st Contact Info) Description 05/17/2014 3:30 PM EDT Follow-Up Dermatology at [facility] [address] [place] [phone] [facility] [address] [place] [address] Panniculitis (Primary Dx) Discharge Disposition: Home Social [...] encounter. Kaylie Shaffer MD Resident in Dermatology [facility] Patient seen and evaluated with staff crossword puzzle maker: Cara Sharif MD Section of Dermatology [facility] documented in this encounter Plan of Treatment Upcoming Encounters Date Type Department Care Team (Late st Contact Info) Description 04/19/2024 10:00 AM EDT Hospital Encounter Non-Invasive Cardiology Lab [place] [phone] Arrived 04/29/2024 9:50 AM EDT Appointment MRI at [place] [phone] Luis Alfredo Velazquez MD [facility] [address] 04/29/2024 9:50 AM EDT Appointment MRI at [place] [phone] Luis Alfredo [address]quez MD [facility] [place] [address] 06/07/2024 2:30 PM EDT TH Visit (TeleHealth) Gastroenterology at [address] [facility] [place] [address] 07/02/2024 2:00 PM EDT Appointment Non-Invasive Cardiology Lab [place] [phone] Luis Alfredo Velazquez MD [facility] [place] [address] 07/02/2024 4:00 PM EDT Office Visit Cardiology at [address] [address] [facility] [address] [place], [place] [address] 07/02/2024 4:40 PM EDT Office Visit Cardiology at [address] [address] [address] [facility] [place] [address] documented as of this encounter Procedures Procedure Name Priority Date/Time Associated Diagnosis Comments AFB CULTURE STAT 05/17/2014 4:14 PM EDT Panniculitis TISSUE CULTURE STAT 05/17/2014 4:14 PM EDT Panniculitis FUNGUS CULTURE Routine 05/17/2014 4:14 PM EDT documented in this encounter Results * Fungus culture (05/17/2014 4:14 PM EDT) Fungus Culture ? Patient Name: KIM PEREZ ?Ordered By: KAYLIE SHAFFER ? MR#: [id number] ?LOC: ??HDM ? /Sex: ??1960 (54 years), ? Female ? PROCEDURE: Fungus Culture ?SOURCE: Tissue ? COLLECTED: 05/17/2014 16:14 ? STARTED: 05/17/2014 16:56 ? FINAL REPORT ? Final Report ? Verified:2013 08:04 ? No Fungus isolated ? PRELIMINARY REPORT ? Preliminary Report ? Verified:2013 08:22 ? No Fungus isolated to date ? TYSHAWN YOUNGIUM Tissue specimen (specimen) 05/17/2014 4:14 PM EDT 05/17/2014 4:55 PM EDT Narrative Resulting Agency Comment Spec In Lab Kaylie Shaffer MD MICROBIOLOGY - NERAL ORDERABLES TYSHAWN RICKETTS * AFB culture Biopsy (05/17/2014 4:14 PM EDT) Acid Fast Bacilli Culture ? Patient Name: KIM PEREZ ?Ordered By: CARA SHARIF ? MR#: [id number] ?LOC: ??HDM ? /Sex: ??1960 (54 years), [...] PRELIMINARY REPORT ? Preliminary Report ? Verified: 14:01 ? No acid fast bacilli isolated at 7 weeks. ? TYSHAWN YOUNGIUM Specimen from unspecified body site obtained by biopsy (specimen) 05/17/2014 4:14 PM EDT 05/17/2014 4:53 PM EDT Narrative Resulting Agency Comment Spec In Lab Cara Sharif MD MICROBIOLOGY - GENER AL ORDERABLES TYSHAWN RICKETTS * Tissue culture Leg (05/17/2014 4:14 PM EDT) Tissue Culture ? Patient Name: KIM PEREZ ?Ordered By: CARA SHARIF ? MR#: [id number] ?LOC: ??HDM ? /Sex: ??1960 (54 years), [...] 08:40 ? No growth to date. ? DAONER MILLENNIUM Specimen from lower limb (specimen) 05/17/2014 4:14 PM EDT 05/17/2014 4:53 PM EDT Narrative Resulting Agency Comment Spec In Lab Cara Sharif MD MICROBIOLOGY - GENER AL ORDERABLES Performing Organization Address City/State/[facility] Co de Phone Number TYSHAWN RICKETTS documented in this encounter Visit Diagnoses Diagnosis Panniculitis- Primary Panniculitis, unspecified site documented in this encounter Care Teams Gender Studies Professor Relationship Specialty Start Date End Date Kaylie Carranza MD [address] [place] [address] PCP - General 08/07/10 11/10/17 documented as of this encounter
--- OUTSIDE RECORDS SUMMARY | 2024-04-16 00:30 | XMS_ITS | Encounter Summary ---
Author Organization Formerly [facility] [place] [address] Care Team Providers Care Residency Program Coordinator Name Role Phone Marcio Carranza MD Primary Care Provider [phone] [phone] Reason for Visit * Reason Onset Date Comments Medication Refill 04/02/2012 Encounter Details Date Type Department Care Team (Late st Contact Info) Description 04/02/2012 [place] [address] Eden Reynoso MD [address] [place] [address] [place] [address] Spondylitis Social History Tobacco Use Types Packs/Day [...] AM EDT Hospital Encounter Non-[place] [address] Arrived 04/29/2024 9:50 AM EDT Appointment MRI at [place] [address] Luis Alfredo Velazquez MD [facility] [place] [address] 04/29/2024 9:50 AM EDT Appointment MRI at [place] [address] Luis Alfredo Velazquez MD [facility] [place] [address] 06/07/2024 2:30 PM EDT TH Visit (TeleHealth) Gastroenterology at [place] [address] Dajuan Rachel MD [facility] [place] [address] 07/02/2024 2:00 PM EDT Appointment Non-Invasive Cardiology Lab [address]1000 Luis Alfredo Velazquez MD [facility] [place] [address] 07/02/2024 4:00 PM EDT Office Visit Cardiology at [place] [address] Mars Green PA [facility] [place] [address] 07/02/2024 4:40 PM EDT [place] [address] Luis Alfredo Velazquez MD [facility] [place] [address] documented as of this encounter Visit Diagnoses Diagnosis Spondylitis Unspecified inflammatory spondylopathy documented in this encounter Care Teams Residency Program Coordinator Relationship Specialty Start Date End Date Marcio Carranza MD [address] [place] [address] PCP - General 08/07/10 11/10/17 documented as of this encounter
--- OUTSIDE RECORDS SUMMARY | 2024-04-16 00:30 | XMS_ITS | Encounter Summary ---
[place] [address] Care Team Providers Care Integrated Logistics Support Manager Name Role Phone Marcio Carranza MD Primary Care Provider +1 -[phone] Encounter Details Date Type Department Care Team (Late st Contact Info) Description 03/08/2011 Abstract [place] [address] Asmita Green RN Social History [...] EDT Hospital Encounter Non-Invasive [place] [address] Arrived 04/29/2024 9:50 AM EDT [place] [address] Luis Alfredo Velazquez MD [facility] [address] 04/29/2024 9:50 AM EDT Appointment MRI at [place] [address] Luis Alfredo Velazquez MD [facility] [place] [address] 06/07/2024 2:30 PM EDT TH Visit (TeleHealth) Gastroenterology at [place] [address] Dajuan Rachel MD [facility] [place] [address] 07/02/2024 2:00 PM EDT Appointment Non-Invasive Cardiology Lab [place] [address] Luis Alfredo Velazquez MD [facility] [address] 07/02/2024 4:00 PM EDT Office Visit Cardiology at [place] [address] Mars Green PA [facility] [address] 07/02/2024 4:40 PM EDT Office Visit Cardiology at [place] [address] Luis Alfredo Velazquez MD [facility] [place] [address] documented as of this encounter Visit Diagnoses Not on filedocumented in this encounter Care Teams Integrated Logistics Support Manager Relationship Specialty Start Date End Date Marcio Carranza MD [address] [place] [address] PCP - General 08/07/10 11/10/17 documented as of this encounter
--- OUTSIDE RECORDS SUMMARY | 2024-04-16 00:30 | XMS_ITS | Encounter Summary ---
Author Organization Formerly [facility] [address] Care Team Providers Care Chimney Builder Name Role Phone Marcio Carranza MD Primary Care Provider +1 -[phone] Reason for Visit * Reason Comments Follow-up Encounter Details Date Type Department Care Team (Late st Contact Info) Description 08/19/2011 4:30 PM EST Follow-[place] [phone] Marc Chan MD [facility] [place] [address] MÉNDEZ (nonalcoholic steatohepatitis) (Primary Dx); Lipid disorder [...] encounter Patient Instructions * Patient Instructions* Marc Chan MD - 08/19/2011 5:25 PM EST Welcome to [facility]wello, your secure online access to your electronic medical record at [facility]. Using Dunwello you will be able to send messages to your providers, view your test results, renew prescriptions, schedule appointments, and much more. Follow these instructions to enter your personal Dunwello account for the first time: 1. Start your internet browser. Go to [email or web address] Digital SolutionsDaphneTERMINALFOUR and click on the Dunwello link. 2. Click SIGN UP NOW to go to the NEW MEMBER SIGN UP page. 3. Enter your Dunwello Access Code exactly as it appears below. (You will not need this access code after you have completed the sign-up process.) ?? Your Dunwello Access Code: [email or web address] ?? Expires: 10/03/11 05:25 PM ?? IMPORTANT: This Access Code will on the above mentioned date. If you do not sign up before this date, you will need to request a new Access Code number. 4. Enter your Date of (mm/dd/yyyy) and zip code click SUBMIT to go to the next page. 5. Create a Dunwello identification (ID). This will be your Dunwello login ID and cannot be changed, so [...] know when new information is available in Dunwello. 9. Click SIGN UP to complete the process. You can now view your electronic medical record. If you have any questions about myD-H or your Access Code, please call for [place], for [place] or for [place]. If you need technical support, please e-mail [email or web address]. Remember, myD-H is NOT for urgent needs! Always dial 911 for medical emergencies. documented in this encounter Progress Notes * Marc Chan MD - 08/19/2011 5:23 PM EST Gastroenterology and Hepatology Clinic Provider: Marc Chan MD ([id number]) Referral Doctor: Marcio Carranza MD [facility] [address] [address] [place] [address] Problem List: 1. MÉNDEZ (stage 2 in [...] conclusion of the visit. Marc Chan MD Hospice Plan Administratorlow pressure firer & Director of End Stage Liver Care Division of Gastroenterology and Hepatology tel: fax: [email or web address] documented in this encounter Plan of Treatment Upcoming Encounters Date Type Department Care Team (Late st Contact Info) Description 04/19/2024 10:00 AM EDT Hospital Encounter Non-Invasive Cardiology [place] [address] Arrived 04/29/2024 9:50 AM EDT Appointment MRI at [place] [address] Luis Alfredo Velazquez MD [facility] [place] [address] 04/29/2024 9:50 AM EDT Appointment MRI at [place] [address] Luis Alfredo Velazquez MD [facility] [place] [address] 06/07/2024 2:30 PM EDT TH Visit (TeleHealth) Gastroenterology at [place] [address] Dajuan Rachel MD [facility] [place] [address] 07/02/2024 2:00 PM EDT Appointment Non-Invasive Cardiology Lab [address]1000 Luis Alfredo Velazquez MD [facility] [place] [address] 07/02/2024 4:00 PM EDT Office Visit Cardiology at [address]1000 Mars Green PA [facility] [place] [address] 07/02/2024 4:40 PM EDT Office Visit Cardiology at [place] [phone] Luis Alfredo Velazquez MD [facility] [place] [address] documented as of this encounter Procedures Procedure Name Priority Date/Time Associated Diagnosis Comments TSH Routine 08/19/2011 5:44 PM EST HEMOGLOBIN A1C Routine 08/19/2011 5:44 PM EST LIPID PANEL (REFLEX DIRECT LDL) Routine 08/19/2011 5:44 PM EST COMPREHENSIVE METABOLIC PANEL (NON-FASTING) Routine 08/19/2011 5:44 PM EST documented in this encounter Results * TSH (08/19/2011 5:44 PM EST) TSH 1.31 0.27 - 4.20 mcIU/mL [facility] Blood specimen (specimen) 08/19/2011 5:44 PM EST 08/19/2011 5:48 PM EST Marc Chan MD CHEMISTRY ORDERABLES [facility] * (ABNORMAL) LIPID PANEL (FASTING) (08/19/2011 5:44 PM EST) Chol, Total 191 <=199 mg/dL [facility] Comment: Recommendations of the NCEP Adult Treatment Panel for the following risk cutoff thresholds for the [place] population: Desirable: <200 mg/dL Borderline High: 200-239 mg/dL High: > or = 240 mg/dL Triglycerides 250(H) <=149 mg/dL [facility] Comment: Reference Range: Normal triglycerides: ??<150 mg/dL Borderline high: ??150-199 mg/dL High: ??200-499 mg/dL Very high: ??>su=155 mg/dL ABRAHAM 2001; 285(19):3887-6537 HDL 52 >=40 mg/dL [facility] Comment: Reference range: ??Low HDL: ?? < 40 mg/dL ??Normal: ?40-60 mg/dL ??Desirable: > 60 mg/dL ABRAHAM 2001; 285(19):2425-9523 LDL Cholesterol 89 <=99 mg/dL CERNER MILLENNIUM Comment: Reference range: ?? Optimal: ?<100 mg/dL ?? Near Optimal/Above Optimal: ?? 100-129 mg/dL ?? Borderline high: ?130-159 mg/dL ?? High: ? 160-189 mg/dL ?? Very high: ?>lt=406 mg/dL ABRAHAM 2001: 285(19):7452-6077 Chol/HDL Ratio 3.7 ratio DAOTIM R MILLENNIUM Comment: A Cholesterol to HDL ratio below 4:1 is desirable. ??Studies suggest that increased CAD risk occurs at ratios above 5 for females and above 6 for men. ? [place] Heart Association ??(http://www.americanheart.org) ? [place] Int Med, 1994; 121:641 ? AM J Med, 1998; 105(1A):48S Blood specimen (specimen) 08/19/2011 5:44 PM EST 08/19/2011 5:48 PM EST Marc Chan MD CHEMISTRY ORDERABLES [facility] * HEMOGLOBIN A1C (08/19/2011 5:44 PM EST) Hemoglobin A1C 5.6 4.3 - 6.1 % CERNER MILLENNIUM Est Avg Gluc 114 mg/dL CERNER EARLENNIUM Comment: eAG equivalents for HbA1c percentages: HbA1c(%) [...] into estimated average glucose values. ??Diabetes Care 2008:31(8):0650-5961. Blood specimen (specimen) 08/19/2011 5:44 PM EST 08/19/2011 5:48 PM EST Marc Chan MD CHEMISTRY ORDERABLES [facility] * (ABNORMAL) COMPREHENSIVE METABOLIC PANEL (NON-FASTING) (08/19/2011 [...] PM EST Marc Chan MD CHEMISTRY ORDERABLES Performing Organization Address City/State/[facility] Co tn Phone Number [facility]WN [facility] documented in this encounter Visit Diagnoses Diagnosis MÉNDEZ (nonalcoholic steatohepatitis)- Primary Other chronic nonalcoholic liver disease Lipid disorder Unspecified disorder of lipoid metabolism documented in this encounter Care Teams Chimney Builder Relationship Specialty Start Date End Date Marcio Carranza MD [address] [place] [address] PCP - General 08/07/10 11/10/17 documented as of this encounter
--- OUTSIDE RECORDS SUMMARY | 2024-04-16 00:30 | XMS_ITS | Encounter Summary ---
Author Organization [place] [address] Care Team Providers Care Tube Knitter Name Role Phone Marcio Carranza MD Primary Care Provider +1 -[phone] Reason for Visit * Reason Comments Follow-up Encounter Details Date Type Department Care Team (Late st Contact Info) Description 08/19/2011 2:45 PM EST Follow-[place] [phone] Eden Reynoso MD [address] [place] [address] [place] [address] Spondylitis (Primary Dx) Discharge Disposition: Home Social [...] which she sees Dr. Chan here at [facility]. She reports that over the past six [...] AM EDT Hospital Encounter Non-Invasive [place] [address] Arrived 04/29/2024 9:50 AM EDT Appointment MRI at [place] [phone] Luis Alfredo Velazquez MD [facility] [place] [address] 04/29/2024 9:50 AM EDT Appointment MRI at [place] [phone] Luis Alfredo Velazquez MD [facility] [address] 06/07/2024 2:30 PM EDT TH Visit (TeleHealth) Gastroenterology at [place] [phone] Dajuan Rachel MD [facility] [place] [address] 07/02/2024 2:00 PM EDT Appointment Non-[place]vasive [place] [address] Luis Alfredo Velazquez MD [facility] [place] [address] 07/02/2024 4:00 PM EDT Office Visit Cardiology at [address] [address] Mars Green PA [facility] [address] 07/02/2024 4:40 PM EDT Office Visit Cardiology at [address] [address] Luis Alfredo Velazquez MD [facility] [address] documented as of this encounter Visit Diagnoses Diagnosis Spondylitis- Primary Unspecified inflammatory spondylopathy documented in this encounter Care Teams Tube Knitter Relationship Specialty Start Date End Date Marcio Carranza MD [address] [place] [address] PCP - General 08/07/10 11/10/17 documented as of this encounter
--- OUTSIDE RECORDS SUMMARY | 2024-04-16 00:30 | XMS_ITS | Encounter Summary ---
Author Organization [facility] [place] [address] Care Team Providers Care Electrical Appliance Mechanic Name Role Phone Marcio Carranza MD Primary Care Provider +1 -[phone] Reason for Visit * Reason Comments Medication Refill Encounter Details Date Type Department Care Team (Late st Contact Info) Description 04/22/2013 Refill [place] [address] Eden Reynoso MD [address] [place] [address] [place] [address] Social History Tobacco Use Types Packs/Day Years [...] AM EDT Hospital Encounter Non-Invasive [place] [address] Arrived 04/29/2024 9:50 AM EDT Appointment MRI at [address]1000 Luis Alfredo Velazquez MD [facility] [place] [address] 04/29/2024 9:50 AM EDT Appointment MRI at [address]1000 Luis Alfredo Velazquez MD [facility] [place] [place] [address] 06/07/2024 2:30 PM EDT TH Visit (TeleHealth) Gastroenterology at [address]1000 Dajuan Rachel MD [facility] [place] [address] 07/02/2024 2:00 PM EDT Appointment Non-Invasive Cardiology Lab [address]1000 Luis Alfredo Velazquez MD [facility] [place] [address] 07/02/2024 4:00 PM EDT Office Visit Cardiology at [place] [phone] Mars Green PA [facility] [place] [address] 07/02/2024 4:40 PM EDT Office Visit Cardiology at [place] [phone] Luis Alfredo Velazquez MD [facility] [place] [address] documented as of this encounter Visit Diagnoses Not on filedocumented in this encounter Care Teams Electrical Appliance Mechanic Relationship Specialty Start Date End Date Marcio Carranza MD [address] [place] [address] PCP - General 08/07/10 11/10/17 documented as of this encounter
--- OUTSIDE RECORDS SUMMARY | 2024-04-16 00:30 | XMS_ITS | Encounter Summary ---
Author Organization [facility] [place] [address] Care Team Providers Care Compliance Advisor Name Role Phone Marcio Carranza MD Primary Care Provider +1 -[phone] Reason for Visit * Reason Onset Date Comments Medication Refill 09/15/2011 Encounter Details Date Type Department Care Team (Late st Contact Info) Description 09/15/2011 [place] [address] Marc Chan MD [facility] [place] [address] Lipid disorder Social History Tobacco Use Types [...] Renewal Request Original authorizing provider: MD Kim DIAS Dajuan Shantel would like a refill of the following medications: simvastatin (ZOCOR) 10 mg tablet [MARC CHAN MD] Preferred pharmacy: [facility] [id number] [facility] [address] [place] [address] Comment: I need Actigall 300 mg. renewed please. It is not listed above for renewal. Kim [id number] [place] [address], [place] [phone] 1960 documented in this encounter Plan of Treatment Upcoming Encounters Date Type Department Care Team (Late st Contact Info) Description 04/19/2024 10:00 AM EDT Hospital Encounter Non-[place] [address] Arrived 04/29/2024 9:50 AM EDT Appointment MRI at [place] [phone] Luis Alfredo Velazquez MD [facility] [place] [address] 04/29/2024 9:50 [place] [address] Luis Alfredo Velazquez MD [facility] [place] [address] 06/07/2024 2:30 PM EDT TH Visit (TeleHealth) Gastroenterology at [place] [phone] Dajuan Rachel MD [facility] [place] [address] 07/02/2024 2:00 PM EDT Appointment Non-[place] [address] Luis Alfredo Velazquez MD [facility] [place] [address] 07/02/2024 4:00 PM EDT Office Visit Cardiology at [address] [phone] Mars Green PA [facility] [place] [address] 07/02/2024 4:40 PM EDT Office Visit Cardiology at [address] [phone] Luis Alfredo Velazquez MD [facility] [place] [address] documented as of this encounter Visit Diagnoses Diagnosis Lipid disorder Unspecified disorder of lipoid metabolism documented in this encounter Care Teams Compliance Advisor Relationship Specialty Start Date End Date Marcio Carranza MD [address] [place] [address] PCP - General 08/07/10 11/10/17 documented as of this encounter
--- OUTSIDE RECORDS SUMMARY | 2024-04-16 00:30 | XMS_ITS | Encounter Summary ---
Author Organization [facility] [place] [address] Care Team Providers Care School Librarian Name Role Phone Marcio Carranza MD Primary Care Provider [phone] Reason for Visit * Reason Comments Medication Refill Encounter Details Date Type Department Care Team (Late st Contact Info) Description 04/22/2013 Refill [place] [phone] Eden Reynoso MD [address] [place] [address] [place] [address] Social History Tobacco Use Types Packs/Day Years [...] AM EDT Hospital Encounter Non[place] [phone] Arrived 04/29/2024 9:50 AM EDT Appointment MRI at [address]1000 Luis Alfredo Velazquez MD [facility] [place] [address] 04/29/2024 9:50 AM EDT Appointment MRI at [address]1000 Luis Alfredo Velazquez MD [facility] [place] [address] 06/07/2024 2:30 PM EDT TH Visit (TeleHealth) Gastroenterology at [address]1000 Dajuan Rachel MD [facility] [place] [address] 07/02/2024 2:00 PM EDT Appointment Non-Invasive Cardiology Lab [address]1000 Luis Alfredo Velazquez MD [facility] [place] [place] [address] 07/02/2024 4:00 PM EDT Office Visit Cardiology at [place] [phone] Mars Green PA [facility] [place] [address] 07/02/2024 4:40 PM EDT Office Visit Cardiology at [place] [phone] Luis Alfredo Velazquez MD [facility] [place] [address] documented as of this encounter Visit Diagnoses Not on filedocumented in this encounter Care Teams School Librarian Relationship Specialty Start Date End Date Marcio Carranza MD [address] [place] [address] PCP - General 08/07/10 11/10/17 documented as of this encounter
--- OUTSIDE RECORDS SUMMARY | 2024-04-16 00:30 | XMS_ITS | Encounter Summary ---
Author Organization [facility] Address [facility] [place] [address] Care Team Providers Care Account Services Associate Name Role Phone Marcio Carranza MD Primary Care Provider [phone] Reason for Visit * Reason Onset Date Comments Medication Refill 09/19/2011 Encounter Details Date Type Department Care Team (Late st Contact Info) Description 09/19/2011 Refill [place] [address] Marc Chan MD [facility] DR GASTROENTER[place] [address] Social History Tobacco Use Types Packs/Day Years [...] AM EDT Hospital Encounter Non-[place] [address] Arrived 04/29/2024 9:50 AM EDT Appointment MRI at [place] [address] Luis Alfredo Velazquez MD [facility] [place] [address] 04/29/2024 9:50 AM EDT Appointment MRI at [place] [address] Luis Alfredo Velazquez MD [facility] [place] [address] 06/07/2024 2:30 PM EDT TH Visit (TeleHealth) Gastroenterology at [place] [address] Dajuan Rachel MD [facility] [place] [address] 07/02/2024 2:00 PM EDT Appointment Non-Invasive Cardiology Lab [place] [address] Luis Alfredo Velazquez MD [facility] [place] [address] 07/02/2024 4:00 PM EDT Office Visit Cardiology at [place] [address] Mars Green PA [facility] [place] [address] 07/02/2024 4:40 PM EDT Office Visit Cardiology at [address]1000 Luis Alfredo Velazquez MD [facility] [place] [address] documented as of this encounter Visit Diagnoses Not on filedocumented in this encounter Care Teams Account Services Associate Relationship Specialty Start Date End Date Marcio Carranza MD [address] [place] [address] PCP - General 08/07/10 11/10/17 documented as of this encounter
--- OUTSIDE RECORDS SUMMARY | 2024-04-16 00:30 | XMS_ITS | Encounter Summary ---
Author Organization [facility] [place] [address] Care Team Providers Care Fulling Mill Operator Name Role Phone Marcio Carranza MD Primary Care Provider [phone] Encounter Details Date Type Department Care Team (Late st Contact Info) Description 01/02/2011 9:00 AM EDT - 01/02/2011 9:45 AM EDT Surgery [place] [phone] Yaquelin Chan MD [facility] [place] [address] COLONOSCOPY FLEXIBLE, WITH BX (WRVU 3.56) Social [...] AM EDT Hospital Encounter Non[place] [address] Arrived 04/29/2024 9:50 AM EDT [place] [address] Luis Alfredo Velazquez MD [facility] [place] [address] 04/29/2024 9:50 AM EDT Appointment MRI at [address]1000 Luis Alfredo Velazquez MD [facility] [place] [address] 06/07/2024 2:30 PM EDT TH Visit (TeleHealth) Gastroenterology at [address]1000 Dajuan Rachel MD [facility] [address] 07/02/2024 2:00 PM EDT Appointment Non-Invasive Cardiology Lab [place] [phone] Luis Alfredo Velazquez MD [facility] [place] [address] 07/02/2024 4:00 PM EDT Office Visit Cardiology at [place] [phone] Mars Green PA [facility] [place] [address] 07/02/2024 4:40 PM EDT Office Visit Cardiology at [place] [phone] Luis Alfredo Velazquez MD [facility] [place] [address] documented as of this encounter Procedures Procedure [...] Surgical Pathology Report (01/02/2011 10:14 AM EDT) Pathologist [facility] Surgical Pathology Report [id number] ? Location: 4T The signing pathologist has [...] report in rendering the final pathologic diagnosis. [facility] 01/02/2011 10:1 4 AM EDT Yaquelin Chan MD PATHOLOGY/CYTOLOGY O RDERABLES [facility] * SURGICAL PATHOLOGY REPORT (01/02/2011 10:14 AM EDT) Surgical Pathology Report ? [facility] ? Provider: ?? YAQUELIN CHAN ? Pt. Name: ?? JENNIFER FUNES ? Acc #: ?[id number] ?Pt. ? Col Date: ?? 01/02/2011 ? [...] Tissue Description: ?? Soft, brown tissues. ? [facility] ? Provider: ?? NATALIE, YAQUELIN S ? Pt. Name: ?? ANA JENNIFER Dajuan ? Acc #: ?[id number] ?Pt. ? Col Date: ?? 01/02/2011 ? [...] AM EDT Yaquelin Chan MD PATHOLOGY/CYTOLOGY [facility] * COLONOSCOPY (01/02/2011 9:07 AM EDT) COLONOSCOPY [facility] Endoscopy ___ Patient Name: Jennifer Funes ? Procedure Date: 01/02/2011 09:07:07 AM ? Date of : 1960 ? Age: 50 ? ___ Procedure: ? Colonoscopy Indications: ? High risk colon cancer surveillance: ? Ulcerative pancolitis Providers: ? Yaquelin Chan MD, Ramya Guido, ? RN, Nathaniel Oliva, Central Office Operator Supervisor Referring : ?Marcio Carranza MD, Dajuan Garcia [...] Fri01/02/11 at 0933, Until Fri01/02/11 at 09, Pain, Intra-Operative (Intra-Procedure), Routine Given 01/02/2011 9:33 [...] Fri01/02/11 at 0928, Pain, Intra-Operative (Intra-Procedure), Routine 09 (Given - Provid [...] RN) documented in this encounter Care Teams Fulling Mill Operator Relationship Specialty Start Date End Date Marcio Carranza MD [address] [place] [address] PCP - General 08/07/10 11/10/17 documented as of this encounter
--- OUTSIDE RECORDS SUMMARY | 2024-04-16 00:30 | XMS_ITS | Encounter Summary ---
Author Organization [facility] Address [facility] [place] [address] Care Team Providers Care Strategic Client Executive Name Role Phone Marcio Carranza MD Primary Care Provider [phone] Encounter Details Date Type Department Care Team (Late st Contact Info) Description 02/08/2011 External Results [place] [phone] Marc Chan MD [facility] [place] [address] Social History Tobacco Use Types Packs/Day Years [...] AM EDT Hospital Encounter Non-[place]vasive [place] [phone] Arrived 04/29/2024 9:50 AM EDT Appointment MRI at [place] [address] Luis Alfredo Velazquez MD [facility] [place] [address] 04/29/2024 9:50 AM EDT Appointment MRI at [address]1000 Luis Alfredo Velazquez MD [facility] [place] [address] 06/07/2024 2:30 PM EDT TH Visit (TeleHealth) Gastroenterology at [address]1000 Dajuan Rachel MD [facility] [place] [address] 07/02/2024 2:00 PM EDT Appointment Non-Invasive Cardiology Lab [address]1000 Luis Alfredo Velazquez MD [facility] [place] [address] 07/02/2024 4:00 PM EDT Office Visit Cardiology at [place] [phone] Mars Green PA [facility] [place] [address] 07/02/2024 4:40 PM EDT Office Visit Cardiology at [place] [phone] Luis Alfredo Velazquez MD [facility] [place] [address] documented as of this encounter Procedures Procedure Name Priority Date/Time Associated Diagnosis Comments LAB SCAN Routine 02/07/2011 documented in this encounter Results * Scan Doc: Lab (02/07/2011) Marc Chan MD MEDIA MGR SCAN EXT O RDR/RSLT documented in this encounter Visit Diagnoses Not on filedocumented in this encounter Care Teams Strategic Client Executive Relationship Specialty Start Date End Date Marcio Carranza MD [address] [facility] [place] [address] PCP - General 08/07/10 11/10/17 documented as of this encounter
--- OUTSIDE RECORDS SUMMARY | 2024-04-16 00:31 | XMS_ITS | Referral Summary ---
Author Organization [facility] Address [address] [place] [address] Care Team Providers Care Mine Production Engineer Name Role Phone Marcio Carranza MD Primary Care Provider Unav ailable Social History Tobacco Use Types Packs/Day Years Used Date Smoking Tobacco: Never Assessed Sex and Gender Information Value Date Recorded Sex Assigned at Not on file Gender Identity Not on file Sexual Orientation Not on file Plan of Treatment Not on file Care Teams Mine Production Engineer Relationship Specialty Start Date End Date Marcio Carranza MD PCP - General 07/26/15
--- OUTSIDE RECORDS SUMMARY | 2024-04-16 00:31 | XMS_ITS | Encounter Summary ---
Author Organization [facility] Address [address] [place] [address] Care Team Providers Care Ethylbenzene Oxidizer Name Role Phone Marcio Carranza MD Primary Care Provider Unav ailable Encounter Details Date Type Department Care Team (Late st Contact Info) Description 05/30/2023 Lab Requisition [facility] Pathology & Laboratory Medicine - [address] [phone] Outr Resulting Lab, Provider Social History Tobacco [...] 85 - 499 mg/dL 06/02/2023 10:49 EDT [facility] Blood VENOUS BLOOD / Unknown 05/30/2023 14:40 EDT 05/30/2023 21:40 EDT Provider Outr Resulting Lab CHEMISTRY & BLOOD GAS ORDERABLES [facility] [address] [place] [address] documented in this encounter Visit Diagnoses Not on filedocumented in this encounter Care Teams Ethylbenzene Oxidizer Relationship Specialty Start Date End Date Marcio Carranza MD PCP - General 07/26/15 documented as of this encounter
--- OUTSIDE RECORDS SUMMARY | 2024-04-16 00:31 | XMS_ITS | Encounter Summary ---
Author Organization [facility] Address [address] [place] [address] Care Team Providers Care Hot Tar Roofer Name Role Phone Marcio Carranza MD Primary Care Provider Unav ailable Encounter Details Date Type Department Care Team (Late st Contact Info) Description 06/27/2023 Lab Requisition [facility] Pathology & Laboratory Medicine - [address] [address] Outr Resulting Lab, Provider Social History Tobacco [...] IGA <1.2 <4.0 U/mL 07/01/2023 13:06 EDT [facility] Comment: A negative result may be due to IgA deficiency and does not rule out celiac disease. ? Negative: ??<4.0 U/mL ? Weak Positive: ??4.0 - 10.0 U/mL ? Positive: ??>10.0 U/mL Results were obtained with the [employer] Lite R h-tTG IgA CASE assay on the [employer] DSX. Blood VENOUS BLOOD / Unknown 06/27/2023 14:40 EDT 06/27/2023 21:30 EDT Provider Outr Resulting Lab IMMUNOLOGY A ND SEROLOGY ORDERABLES Performing Organization Address City/State/[facility] Co de Phone Number [facility] [address] [place] [address] documented in this encounter Visit Diagnoses Not on filedocumented in this encounter Care Teams Hot Tar Roofer Relationship Specialty Start Date End Date Marcio Carranza MD PCP - General 07/26/15 documented as of this encounter
--- OUTSIDE RECORDS SUMMARY | 2024-04-16 00:31 | XMS_ITS | Encounter Summary ---
Author Organization [facility] Address [address] [place] [address] Care Team Providers Care Bakery Manager Name Role Phone Marcio Carranza MD Primary Care Provider Unav ailable Encounter Details Date Type Department Care Team (Late st Contact Info) Description 06/13/2023 Lab Requisition [facility] Pathology & Laboratory Medicine - [address] 7[address]651 Outr Resulting Lab, Provider Social History Tobacco [...] IGA <1.2 <4.0 U/mL 06/16/2023 12:43 EDT [facility] Comment: A negative result may be due to IgA deficiency and does not rule out celiac disease. ? Negative: ??<4.0 U/mL ? Weak Positive: ??4.0 - 10.0 U/mL ? Positive: ??>10.0 U/mL Results were obtained with the [employer] Lite R h-tTG IgA CASE assay on the [employer] DSX. Blood VENOUS BLOOD / Unknown 06/13/2023 14:35 EDT 06/13/2023 21:18 EDT Provider Outr Resulting Lab IMMUNOLOGY A ND SEROLOGY ORDERABLES Performing Organization Address City/State/[facility] Co de Phone Number [facility] [address] [place] [address] documented in this encounter Visit Diagnoses Not on filedocumented in this encounter Care Teams Bakery Manager Relationship Specialty Start Date End Date Marcio Carranza MD PCP - General 07/26/15 documented as of this encounter
--- OUTSIDE RECORDS SUMMARY | 2024-04-16 00:31 | XMS_ITS | Encounter Summary ---
Author Organization [facility] Address [address] [place] [address] Care Team Providers Care Cyber Incident Responder Name Role Phone Marcio Carranza MD Primary Care Provider Unav ailable Encounter Details Date Type Department Care Team ([facility] st Contact Info) Description 06/27/2017 Results Only [facility]ISM [phone] Evan Miller MD [address] [place] [address] Social History Tobacco Use Types Packs/Day Years [...] ? KIM PEREZ ? Accession #: ? [id number] ? : ? 1960 (Age: 57) ??F [...] types 16,18,31,33,35, 39,45,51,52,56,58, 59,66, and 68 by elementary school director mediated amplification. Comments Document reviewed and electronically signed by: ? System Interface ? Report date: 07/09/2017 By the signature above, the attending physician certifies that he/she has personally conducted a gross and/or microscopic examination of the described specimens and rendered or confirmed the above diagnosis. End of Report [facility] 06/27/2017 07/01/2017 Evan Miller MD PATHOLOGY ORDERABLES [facility] [address] [place] [address] documented in this encounter Visit Diagnoses Not on filedocumented in this encounter Care Teams Cyber Incident Responder Relationship Specialty Start Date End Date Marcio Carranza MD PCP - General 07/26/15 documented as of this encounter
--- OUTSIDE RECORDS SUMMARY | 2024-04-16 00:31 | XMS_ITS | Encounter Summary ---
Author Organization [facility] Address [address] [place] [address] Care Team Providers Care Pot Tender Name Role Phone Unavailable Primary Care Provider Unavailabl e Encounter Details Date Type Department Care Team (Late st Contact Info) Description 04/14/2014 Results Only [facility]ISM [phone] Demetris Rubin, SEAT JOINER [address] [place] [address] Social History Tobacco Use Types [...] ? KIM PEREZ ? Accession #: ? [id number] ? : ? 1960 (Age: 54) ??F [...] types 16,18,31,33,35, 39,45,51,52,56,58, 59,66, and 68 by external relations manager mediated amplification. Comments Document reviewed and electronically signed by: ? System Interface ? Report date: 04/22/2014 By the signature above, the attending physician certifies that he/she has personally conducted a gross and/or microscopic examination of the described specimens and rendered or confirmed the above diagnosis. End of Report [facility] 04/14/2014 04/18/2014 Demetris L MacLeod SEAT JOINER PATHOLOGY ORDERAB LES [facility] [address] [place] [address] documented in this encounter Visit Diagnoses Not on filedocumented in this encounter
--- OUTSIDE RECORDS SUMMARY | 2024-04-16 00:31 | XMS_ITS | Encounter Summary ---
Author Organization [facility] [place] [address] Care Team Providers Care Components Engineer Name Role Phone Marcio Devlin DO Primary Care Provider [phone] Encounter Details Date Type Department Care Team (Late st Contact Info) Description 03/17/2006 Orders [place] [address] Amandeep Miles Jr., MD [facility] [place] [address] Social History Tobacco Use Types Packs/Day Years Used Date Smoking Tobacco: Never Assessed [facility] Utilities Answer Date Recorded In the past 12 months has [email or web address], gas, oil, or water [employer] threatened to shut off services in your [...] AM EDT Hospital Encounter Non[place] [address] Arrived 04/29/2024 9:50 AM [place] [address] Luis Alfredo Velazquez MD [facility] [place] [place] [address] 04/29/2024 9:50 AM [place] [address]-1000 Luis Alfredo Velazquez MD [facility] [place] [address] 06/07/2024 2:30 PM EDT TH Visit (TeleHealth) Gastroenterology at [place] [phone] Dajuan Rachel MD [facility] [place] [address] 07/02/2024 2:00 PM EDT Appointment Non-Invasive Cardiology Lab [place] [phone] Luis Alfredo Velazquez MD [facility] [place] [address] 07/02/2024 4:00 PM EDT Office Visit Cardiology at [place] [phone] Mars Green PA [facility] CARDIOLOGY [place], [place] [phone] 07/02/2024 4:40 PM EDT Office Visit Cardiology at [address] [address] Luis Alfredo Velazquez MD [facility] [place] [address] documented as of this encounter Procedures Procedure Name Priority Date/Time Associated Diagnosis Comments SURGICAL PATHOLOGY REPORT Routine 03/17/2006 2:36 PM EDT documented in this encounter Results * Surgical Pathology Report (03/17/2006 2:36 PM EDT) Surgical Pathology Report ? Location: 3T; [facility]8; B The signing pathologist has (i) examined [...] Amandeep Miles Jr., MD PATHOLOGY/CYTOLOG Y ORDERABLES Performing Organization Address City/State/[facility] Co de Phone Number [facility] documented in this encounter Visit Diagnoses Not on filedocumented in this encounter Care Teams Components Engineer Relationship Specialty Start Date End Date Marcio Devlin DO [address] [place] [address] PCP - General Family Medicine 11/11/17 documented as of this encounter
--- OUTSIDE RECORDS SUMMARY | 2024-04-16 00:31 | XMS_ITS | Encounter Summary ---
Author Organization [facility] Address [address] [place] [address] Care Team Providers Care Supply Chain Logistics Manager Name Role Phone Marcio Carranza MD Primary Care Provider Unav ailable Encounter Details Date Type Department Care Team (Late st Contact Info) Description 04/04/2021 Lab Requisition [facility] Pathology & Laboratory Medicine - [address] [phone] Outr Resulting Lab, Provider Social History Tobacco [...] 4th Generation Negative Negative 04/05/2021 9:48 EDT [facility] Comment: If acute HIV-1 infection is suspected in a high risk ??patient, submit plasma specimen for HIV-1 RNA quantitation test. Fourth Generation assay performed on the Siem[employer] SensGardaur. Blood VENOUS BLOOD / Unknown 04/04/2021 14:07 EDT 04/04/2021 21:08 EDT Provider Outr Resulting Lab IMMUNOLOGY A ND SEROLOGY ORDERABLES Performing Organization Address [facility]/State/ZIP Co de Phone Number [facility] [address] [place] [address] documented in this encounter Visit Diagnoses Not on filedocumented in this encounter Care Teams Supply Chain Logistics Manager Relationship Specialty Start Date End Date Marcio Carranza MD PCP - General 07/26/15 documented as of this encounter
--- OUTSIDE RECORDS SUMMARY | 2024-04-16 00:31 | XMS_ITS | Encounter Summary ---
Author Organization [facility] Address [address] [address] Care Team Providers Care Collection Teller Name Role Phone Marcio Carranza MD Primary Care Provider Unav ailable Encounter Details Date Type Department Care Team (Late st Contact Info) Description 02/03/2021 Lab Requisition [facility] Pathology & Laboratory Medicine - [address] [address] Outr Resulting Lab, Provider Social History Tobacco [...] QUANTIFERON TB GOLD PLUS (02/02/2021 14:45 EDT) [facility] Quantiferon Interpretation Negative Negative 02/07/2021 13:59 EDT [facility] Comment: No interferon-gamma response to [...] minus Nil 0.02 IU/ml 02/08/20 13:59 EDT [facility] TB2 Ag minus Nil 0.09 IU/mL 02/08/20 13:59 EDT [facility] Blood VENOUS BLOOD / Unknown 02/02/2021 14:45 EDT 02/03/2021 21:37 EDT Narrative [facility] - 02/07/2021 13:59 EDT Results were obtained with the [employer] QuantiFERON-TB Gold Plus CASE. Provider Outr Resulting Lab CHEMISTRY & BLOOD GAS ORDERABLES [facility] [address] [place] [address] documented in this encounter Visit Diagnoses Not on filedocumented in this encounter Care Teams Collection Teller Relationship Specialty Start Date End Date Marcio Carranza MD PCP - General 07/26/15 documented as of this encounter
--- OUTSIDE RECORDS SUMMARY | 2024-04-16 00:31 | XMS_ITS | Encounter Summary ---
Author Organization [facility] Address [address] [place] [address] Care Team Providers Care Ostomy Rn Name Role Phone Marcio Carranza MD Primary Care Provider Unav ailable Encounter Details Date Type Department Care Team (Late st Contact Info) Description 05/30/2023 Lab Requisition [facility] Pathology & Laboratory Medicine - [address] [phone] Outr Resulting Lab, Provider Social History Tobacco [...] IGA <1.2 <4.0 U/mL 06/02/2023 11:50 EDT [facility] Comment: A negative result may be due to IgA deficiency and does not rule out celiac disease. ? Negative: ??<4.0 U/mL ? Weak Positive: ??4.0 - 10.0 U/mL ? Positive: ??>10.0 U/mL Results were obtained with the AdGrokA Lite R h-tTG IgA CASE assay on the [employer] DSX. Blood VENOUS BLOOD / Unknown 05/30/2023 14:40 EDT 05/30/2023 21:40 EDT Provider Outr Resulting Lab IMMUNOLOGY A ND SEROLOGY ORDERABLES Performing Organization Address City/State/[facility] Co de Phone Number [facility] [address] [place] [address] documented in this encounter Visit Diagnoses Not on filedocumented in this encounter Care Teams Ostomy Rn Relationship Specialty Start Date End Date Marcio Carranza MD PCP - General 07/26/15 documented as of this encounter
--- OUTSIDE RECORDS SUMMARY | 2024-04-16 00:31 | XMS_ITS | Encounter Summary ---
Author Organization [facility] Address [address] [place] [address] Care Team Providers Care Chucking And Sawing Machine Operator Name Role Phone Unavailable Primary Care Provider Unavailabl e Encounter Details Date Type Department Care Team (Late st Contact Info) Description 12/29/2000 Results Only [facility] - Maple conversion [address] [place] [address] Clarita Witt, KIM Social History Tobacco Use [...] ? KIM PEREZ ? Accession #: ? [id number] : ? 1960 (Age: 40) ??F ?Collect [...] NP PATHOLOGY ORDERABLES [facility] [address] [place] [address] documented in this encounter Visit Diagnoses Not on filedocumented in this encounter
--- OUTSIDE RECORDS SUMMARY | 2024-04-16 00:31 | XMS_ITS | Encounter Summary ---
Author Organization [facility] Address [address] [place] [address] Care Team Providers Care Cytogeneticist Name Role Phone Marcio Carranza MD Primary Care Provider Unav ailable Encounter Details Date Type Department Care Team (Late st Contact Info) Description 04/05/2021 Lab Requisition [facility] Pathology & Laboratory Medicine - [address] [id number] Outr Resulting Lab, Provider Social History Tobacco [...] TB GOLD PLUS (04/04/2021 14:07 EDT) Pathologist [facility] Quantiferon Interpretation Negative Negative 04/06/2021 13:32 EDT [facility] Comment: No interferon-gamma response [...] minus Nil 0.02 IU/ml 04/06/20 13:32 EDT [facility] TB2 Ag minus Nil 0.06 IU/mL 04/06/20 13:32 EDT [facility] Blood VENOUS BLOOD / Unknown 04/04/2021 14:07 EDT 04/05/2021 15:50 EDT Narrative [facility] - 04/06/2021 13:32 EDT Results were obtained with the [employer]agen QuantiFERON-TB Gold Plus CASE. Provider Outr Resulting Lab CHEMISTRY & BLOOD GAS ORDERABLES [facility] [address] [place] [address] documented in this encounter Visit Diagnoses Not on filedocumented in this encounter Care Teams Cytogeneticist Relationship Specialty Start Date End Date Marcio Carranza MD PCP - General 07/26/15 documented as of this encounter
--- OUTSIDE RECORDS SUMMARY | 2024-04-16 00:31 | XMS_ITS | Clinical Summary ---
Author Organization [facility] Address [address] [place] [address] Care Team Providers Care Slunk Skin Curer Name Role Phone Marcio Carranza MD Primary [...] COVID-19 Vaccine (2022-24 season) 2023 Care Teams Slunk Skin Curer Relationship Specialty Start Date End Date Marcio Carranza MD PCP - General 07/26/15
--- OUTSIDE RECORDS SUMMARY | 2024-04-16 00:31 | XMS_ITS | Encounter Summary ---
Author Organization [facility] Address [address] [place] [address] Care Team Providers Care Well Testing Operator Name Role Phone Marcio Carranza MD Primary Care Provider Unav ailable Encounter Details Date Type Department Care Team (Late st Contact Info) Description 06/27/2023 Lab Requisition [facility] Pathology & Laboratory Medicine - [address] [phone] Outr Resulting Lab, Provider Social History Tobacco [...] 85 - 499 mg/dL 06/30/2023 11:11 EDT [facility] Blood VENOUS BLOOD / Unknown 06/27/2023 14:40 EDT 06/27/2023 21:25 EDT Provider Outr Resulting Lab CHEMISTRY & BLOOD GAS ORDERABLES [facility] [address] [place] [address] documented in this encounter Visit Diagnoses Not on filedocumented in this encounter Care Teams Well Testing Operator Relationship Specialty Start Date End Date Marcio Carranza MD PCP - General 07/26/15 documented as of this encounter
--- OUTSIDE RECORDS SUMMARY | 2024-04-16 00:31 | XMS_ITS | Encounter Summary ---
Author Organization [facility] Address [address] [place] [address] Care Team Providers Care Certified Health Education Specialist Name Role Phone Marcio Carranza MD Primary Care Provider Unav ailable Encounter Details Date Type Department Care Team (Late st Contact Info) Description 08/02/2021 Lab Requisition [facility] Pathology & Laboratory Medicine - [address] [phone] Outr Resulting Lab, Provider Social History Tobacco [...] Ab, Total Negative Negative 08/03/2021 10:48 EST [facility] Blood VENOUS BLOOD / Unknown 08/02/2021 15:15 EST 08/02/2021 21:06 EST Provider Outr Resulting Lab CHEMISTRY & BLOOD GAS ORDERABLES [facility] [address] [place] [address] documented in this encounter Visit Diagnoses Not on filedocumented in this encounter Care Teams Certified Health Education Specialist Relationship Specialty Start Date End Date Marcio Carranza MD PCP - General 07/26/15 documented as of this encounter
--- OUTSIDE RECORDS SUMMARY | 2024-04-16 00:31 | XMS_ITS | Encounter Summary ---
Author Organization [facility] Address [address] [place] [address] Care Team Providers Care Tornado Chaser Name Role Phone Unavailable Primary Care Provider Unavailabl e Encounter Details Date Type Department Care Team (Late st Contact Info) Description 09/19/2008 Before PRISM Converted Visit (Maple) [facility] - Maple conversion [address] [place] [address] Jeyson Bryant MD [address] [place] [address] Social History Tobacco Use Types Packs/Day Years [...] colitis ? Gross Description: ? [facility] labelled Ana and bx terminal ? ileum are two biopsies measuring 0.3 x 0.2 x 0.2 cm and 0.3 x 0.3 x 0.2 cm. ? The specimens are submitted intact as (A). ? Received in [employer]'s fixative labelled Ana and bx cecum are two ? biopsies measuring 0.3 x 0.2 x 0.2 cm and 0.4 x 0.4 x 0.2 cm. ??The specimens are submitted intact as (B). ? Received in [facility] fixative labelled Ana and bx transverse colon are six biopsies which vary in size from 0.3 x 0.2 x 0.2 cm up to 0.5 x 0.3 x ?? 0.2 cm. ??The specimens are submitted intact as (C1) and (C2). ? Received in [facility]'s fixative labelled Ana and bx descending colon are three biopsies which vary in size from 0.2 x 0.2 x 0 .2 cm up to 0.3 x 0.2 x 0.1cm. ??The specimens are submitted intact as (D). ? Received in [facility]'s fixative labelled Ana and bx sigmoid polyp are three biopsies which vary in size from 0.3 x 0.2 x 0.1 cm up to 0.4 x 0.3 x 0.2 cm. ??The specimens are submitted intact as (E). ? Received in [facility]'s fixative labelled Ana and sigmoid colon bx [...] MD PATHOLOGY ORDERABLE S [facility]X [address] [place] [address] documented in this encounter Visit Diagnoses Not on filedocumented in this encounter
--- OUTSIDE RECORDS SUMMARY | 2024-04-16 00:31 | XMS_ITS | Encounter Summary ---
Author Organization [facility] Address [address] [place] [address] Care Team Providers Care Liner Helper Name Role Phone Marcio Carranza MD Primary Care Provider Unav ailable Encounter Details Date Type Department Care Team (Late st Contact Info) Description 05/16/2023 Lab Requisition [facility] Pathology & Laboratory Medicine - [address] [phone] Outr Resulting Lab, Provider Social History Tobacco [...] IGA <1.2 <4.0 U/mL 05/19/2023 12:33 EDT [facility] Comment: A negative result may be due to IgA deficiency and does not rule out celiac disease. ? Negative: ??<4.0 U/mL ? Weak Positive: ??4.0 - 10.0 U/mL ? Positive: ??>10.0 U/mL Results were obtained with the buySAFEA Lite R h-tTG IgA CASE assay on the [employer] DSX. Blood VENOUS BLOOD / Unknown 05/16/2023 14:30 EDT 05/16/2023 20:53 EDT Provider Outr Resulting Lab IMMUNOLOGY A ND SEROLOGY ORDERABLES Performing Organization Address City/State/[facility] Co de Phone Number [facility] [address] [place] [address] documented in this encounter Visit Diagnoses Not on filedocumented in this encounter Care Teams Liner Helper Relationship Specialty Start Date End Date Marcio Carranza MD PCP - General 07/26/15 documented as of this encounter
--- OUTSIDE RECORDS SUMMARY | 2024-04-16 00:31 | XMS_ITS | Encounter Summary ---
Author Organization [facility] Address [address] [place] [address] Care Team Providers Care Methods Specialist Engineer Name Role Phone Marcio Carranza MD Primary Care Provider Unav ailable Encounter Details Date Type Department Care Team (Late st Contact Info) Description 05/03/2020 Lab Requisition [facility] Pathology & Laboratory Medicine - [address] [phone] Outr Resulting Lab, Provider Social History Tobacco [...] 19 - 88 pg/mL 05/04/2020 10:29 EDT [facility] Blood VENOUS BLOOD / Unknown 05/03/2020 8:30 EDT 05/03/2020 16:07 EDT Provider Outr Resulting Lab CHEMISTRY & BLOOD GAS ORDERABLES [facility] [address] [place] [address] documented in this encounter Visit Diagnoses Not on filedocumented in this encounter Care Teams Methods Specialist Engineer Relationship Specialty Start Date End Date Marcio Carranza MD PCP - General 07/26/15 documented as of this encounter
--- OUTSIDE RECORDS SUMMARY | 2024-04-16 00:31 | XMS_ITS | Encounter Summary ---
Author Organization [facility] Address [address] [place] [address] Care Team Providers Care Online Merchant Name Role Phone Unavailable Primary Care Provider Unavailabl e Encounter Details Date Type Department Care Team (Late st Contact Info) Description 03/06/2011 Results Only [facility]- PRISM [phone] Demetris Rubin, CAT SKINNER [address] [place], [place] [id number] Social History Tobacco Use Types Packs/Day Years [...] ? KIM FUNES ? Accession #: ? [id number] ? : ? 1960 (Age: 50) ??F ?Collect Date: ? 03/06/2011 ? Location: ? [facility] ? Receive Date: ? 03/08/2011 ? Provider: ?DEMETRIS MACLEOD CAT SKINNER ? Copy to: ? Specimen/Source: ?Pap Test, Cervix, ThinPrep Imaging System with manual ?? evaluation ? Last Menstrual Period: ? Nov. 2009 ? SPECIMEN ADEQUACY ? Satisfactory for Evaluation ? - transformation zone component present ? GENERAL CATEGORIZATION ? Negative for Intraepithelial Lesion or Malignancy ? Document reviewed and electronically signed by: ? Jenifer Aultman, CT(ASCP) ? Report Date: ??03/11/2011 11:23 ? End of Report ? N[facility]IO [facility]X 03/06/2011 03/08/2011 Demetrisfernando Rubin CAT SKINNER PATHOLOGY ORDERAB LES [facility] [address] [place] [address] documented in this encounter Visit Diagnoses Not on filedocumented in this encounter
--- OUTSIDE RECORDS SUMMARY | 2024-04-16 00:31 | XMS_ITS | Encounter Summary ---
Author Organization [facility] Address [address] [place] [address] Care Team Providers Care Nut Feeder Name Role Phone Marcio Carranza MD Primary Care Provider Unav ailable Encounter Details Date Type Department Care Team (Late st Contact Info) Description 05/16/2023 Lab Requisition [facility] Pathology & Laboratory Medicine - [address] [address] Outr Resulting Lab, Provider Social History Tobacco [...] 85 - 499 mg/dL 05/19/2023 10:37 EDT [facility] Blood VENOUS BLOOD / Unknown 05/16/2023 14:30 EDT 05/16/2023 20:54 EDT Provider Outr Resulting Lab CHEMISTRY & BLOOD GAS ORDERABLES [facility] [address] [place] [address] documented in this encounter Visit Diagnoses Not on filedocumented in this encounter Care Teams Nut Feeder Relationship Specialty Start Date End Date Marcio Carranza MD PCP - General 07/26/15 documented as of this encounter
--- OUTSIDE RECORDS SUMMARY | 2024-04-16 00:31 | XMS_ITS | Encounter Summary ---
Author Organization [facility] Address [address] [place] [address] Care Team Providers Care Flower Grower Name Role Phone Marcio Carranza MD Primary Care Provider Unav ailable Encounter Details Date Type Department Care Team (Late st Contact Info) Description 06/13/[address] [facility] Pathology & Laboratory Medicine - [address] [address] Outr Resulting Lab, Provider Social History Tobacco [...] 85 - 499 mg/dL 06/16/2023 9:53 EDT [facility] Blood VENOUS BLOOD / Unknown 06/13/2023 14:35 EDT 06/13/2023 21:23 EDT Provider Outr Resulting Lab CHEMISTRY & BLOOD GAS ORDERABLES [facility] [address] [place] [address] documented in this encounter Visit Diagnoses Not on filedocumented in this encounter Care Teams Flower Grower Relationship Specialty Start Date End Date Marcio Carranza MD PCP - General 07/26/15 documented as of this encounter
--- NOTE | 2024-04-16 08:14 | DI.MAMMO_ITS ---
Exam(s) MAMMO SCREENING EXAM: MAMMO SCREENING CLINICAL HISTORY: screening, Z12.39 TECHNIQUE: Mammograms were interpreted according to the usual protocol including computer analysis w [employer] CAD system, tomosynthesis and C-view imaging. COMPARISON: 2013 through 2021 FINDINGS: The breasts are composed of scattered fibroglandular densities, Breast Density category B. No suspicious masses or suspicious microcalcifications are seen. No skin thickening or abnormal axillary lymph nodes are seen. Pacemaker overlies the muscle. There has been no significant change from prior exams. IMPRESSION: BI-RADS Category 1, Negative mammogram Yearly screening mammography is recommended. Breast Density - Category B, scattered fibroglandular densities. A negative radiographic report should not delay biopsy if a dominant or clinically suspicious mass is present. Up to ten percent of cancers are not identified on mammography. A negative report may reinforce clinical impression. Adenosis and dense breasts may obscure an underlying neoplasm. False positive reports average 6 to 10%. Patient will receive a letter notifying them of these results.
== END ==
PROVIDERS: PCP Family Medicine; Visit Provider Family Medicine
DX: Z12.39 Encounter for other screening for malignant neoplasm of breast (principal); Z12.31 Encounter for screening mammogram for malignant neoplasm of breast
CPT/HCPCS: 77063; 77067

== ENCOUNTER 2024-05-24 01:22 | Outpatient (CLI) | payer OTHER, SELFPAY ==
--- NOTE | 2024-05-24 13:30 | DI.RAD_ITS ---
Exam(s) XR FOOT RT COMPLETE EXAM: XR FOOT RT COMPLETE CLINICAL HISTORY: Right foot pain M79.671 PAIN RT FOOT. TECHNIQUE: 2D digital imaging was performed. Three views. COMPARISON: CR XR FOOT RT COMPLETE from 02/03/2024 FINDINGS: BONES: No acute fracture is present. No bony destructive lesion is seen. Heel spurs again noted. JOINTS: No dislocation present. Mild degenerative changes at the 1st MTP joint. Plantar arch is breanna ntained. SOFT TISSUE: Normal. IMPRESSION: Mild degenerative changes and heel spurs. DATA REPOSITORY: RADIATION DOSE DELIVERED:
== END 2024-05-24 01:42 ==
LOC: DI 01:22
PROVIDERS: PCP Family Medicine; Visit Provider Podiatrist
DX: M79.671 Pain in right foot (principal)
CPT/HCPCS: 73630

== ENCOUNTER 2024-06-02 02:26 | Outpatient (CLI) | payer OTHER, SELFPAY ==
--- NOTE | 2024-06-02 14:37 | DI.RAD_ITS ---
Exam(s) XR FOOT RT COMPLETE EXAM: XR FOOT RT COMPLETE CLINICAL HISTORY: increased pain with walking,stress fx,m79.671,m84.374a. TECHNIQUE: 2D digital imaging was performed. Three views. COMPARISON: CR XR FOOT RT COMPLETE from 02/03/2024 CR XR FOOT RT COMPLETE from 05/24/2024 FINDINGS: BONES: There is slight cortical thickening at the mid shaft of the 2nd metatarsal however this does n ot appear changed from the February 02 exam.. No bony destructive lesion is seen. Small heel spurs again noted. JOINTS: No dislocation present. There are mild degenerative changes at the 1st MTP joint. SOFT TISSUE: Normal. IMPRESSION: No acute abnormality. DATA REPOSITORY: RADIATION DOSE DELIVERED:
== END 2024-06-02 02:46 ==
LOC: DI 02:27
PROVIDERS: PCP Family Medicine; Visit Provider Podiatrist
DX: M79.671 Pain in right foot (principal)
CPT/HCPCS: 73630

== ENCOUNTER 2024-06-14 15:20 | Outpatient (REF) | payer OTHER, SELFPAY ==
--- OUTSIDE RECORDS SUMMARY | 2024-06-14 15:25 | XMS_ITS | Clinical Summary ---
Author Organization [facility] [place] [address] Care Team Providers Care Industrial Tech Instructor Name Role Phone Marcio Devlin DO Primary Care Provider [phone] Allergies Active Allergy Reactions Criticality Noted Date [...] 3 11/15/2016 Active SUMAtriptan (IMITREX) 20 mg/actuation [place], Non-Aerosol 1 spray as needed. 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 Shady Luz at [facility]) for surveillance for dysplasia. Areas [...] 2020 - severe involvement of L colon, [id number] involvement of transverse and R colon. Worse compared to last exam. SSA at hepatic flexure Adalimumab level (garcía) was 12.7 Switched to Stelara ( 03/21/21, first infusion dose) d/t Lost of response to Humira. Stopped Uceris and sulfasalazine in January 2021. Hewitt 09/2022 - tubular featureless L colon with slightly diminished vascular pattern. Histology with mild colitis in sigmoid and inactive in descending. SSA in hep flex. Hewitt 09/2023 - In remission - altered architecture, as above. No dysplasia on histology. DIFFICULT AIRWAY Overview (02/24/2018): As described in 2006 anesthesia record in [facility]. Encounters Date Type Department Care Team Description 06/07/2024 2:30 PM EDT TH Visit (TeleHealth) [place] [address] Dajuan Rachel MD Ulcerative pancolitis with complication; Abnormal liver function test 05/24/2024 [place] [phone] Gabe Fong MD 04/29/2024 9:05 AM EDT - 04/29/2024 11:59 PM EDT [place] [address] Luis Alfredo Velazquez MD Discharge Disposition: Home 04/29/2024 9:05 AM EDT - 04/29/2024 11:59 PM EDT Hospital Encounter MRI at [facility] [place] [address] Luis Alfredo Velazquez MD Complete heart block Discharge Disposition: Home 04/29/2024 Travel 04/22/2024 Travel 04/19/2024 10:00 AM EDT - 04/19/2024 11:59 PM EDT Hospital Encounter Non-[place] [phone] Discharge Disposition: Home from Last 3 Months Immunizations Name Administration Dates Next Due Covid-19 Monovalent (Moderna Spikevax) 12yrs+ () 01/13/2021,12/16/2020 Hep A/B (TwinRix) 02/21/2011,08/14/2010 Inactivated Polio Vaccine (IPOL) 05/16/2013 Influenza Quadrivalent, Preservative Free 2020,07/16/2019,07/27/2018 Influenza Trivalent w/Preservative 07/08/2014, Influenza Vaccine, Whole 06/15/2005 Pneumococcal Conjugate (Prevnar 13) 02/29/2016 Pneumococcal Polysaccharide [...] once every couple of months or less [facility] Utilities Answer Date Recorded In [...] a senior living (including now)? No 10/21/2023 DH IPV Inpatient [...] Sign Reading Time Taken Comments Blood Pressure 140/65 04/29/2024 11:20 AM EDT Pulse 74 04/29/2024 11:20 AM EDT Temperature 36.5 ??C (97.7 ??F) 01/06/2024 12:48 PM E DT Respiratory Rate 16 04/29/2024 11:20 AM EDT Oxygen Saturation 100% 04/29/2024 11:20 AM EDT Inhaled Oxygen Concentration - - Weight 80.7 kg (178 lb) 01/06/2024 12:48 PM EDT Height 166.4 cm (5' 5.5) 12/04/2023 3:40 PM EDT Body Mass Index 29.17 12/04/2023 3:40 PM EDT Plan of Treatment Upcoming Encounters Date Type Department Care Team (Late st Contact Info) Description 07/02/2024 2:00 PM EDT Appointment Non-[place] [phone] Luis Alfredo Velazquez MD [facility] [place] [address] 07/02/2024 4:00 PM EDT Office Visit Cardiology at [address] [phone] [place] [facility] [address] [place], [place] [phone] 07/02/2024 4:40 PM EDT Office Visit Cardiology at [address] [phone] Luis Alfredo Velazquez MD [facility] [address] [place], [place] [phone] 07/18/2024 9:00 AM EST Hospital Encounter Non-[place] [address] Arrived 07/27/2024 3:30 PM EST Office [place] [address] Gabe Fong MD [facility] [place] [address] 12/07/2024 2:30 PM EDT TH Visit (TeleHealth) Gastroenterology at [facility] [place] [address] Rosemarie Morrow APRN [facility] [place] [address] Health Maintenance Due Date Last Done Comments [...] Covid-19 Vaccine (3 - 2022-2 4 season) 2024 01/13/2021, 12/16/2020 Influenza (Flu) vaccine (1 o f 1 - Influenza standard series) 05/16/2024 09/28/2020, 07/16/2019, 07/27/2018, Additional history exists DM Creatinine yearly 10/22/2024 10/22/2023, 10/21/2023, 10/20/2023, Additional history exists Colonoscopy 09/18/2025 09/18/2023, 12/2023, 09/24/2022, Additional history exists Colorectal Cancer Screening 09/18/2025 Pneumococcal Vaccine: At-Ris k 5-64yrs (3 of 3 - PPSV23 or PCV20) 2026 02/29/2016, 014, 03/15/2014 Tetanus/Diphtheria/Pertussis Vaccines (3 - Td or Tdap) 03/30/2030 03/30/2020, 01/26/2010 Sigmoidoscopy (10 year) with FIT yearly 09/18/2033 09/18/2023, 09/18/2023, 09/24/2022, Additional history exists Zoster vaccine Completed 02/19/2020, 10/13/2019 Medical Devices Implanted Type Area Vacuum Cleaner Mechanic Device Identifier Shelf Expiration Date Model / Serial / Lot Anselmo De La Cruz Urny, Incont ([id number]) - [id number] Implanted:Qty: 1 on 03/10/2018 by Liang Fong MD at [facility] IMPLANTS [facility] - [id number] 05/27/2020 [facility]-DS01 B / / [id number] Bsx Ingevity + [id number] Lead10/21/2023 Implanted:Qty: 1 on 10/21/2023 by Dilip Berumen MD Lead Heart [employer] 7841-52 / [id number] / Bsx Ingevity + [id number] Lead-10/21/2023 Implanted:Qty: 1 on 10/21/2023 by Dilip Berumen MD Lead Heart [employer] 7842-59 / [id number] / Bsx Accolade Mri L311-10/21/2023 Implanted:Qty: 1 on 10/21/2023 by Dilip Berumen MD Pacemaker Chest Wall [employer] L311 / [id number] / Description:When scanned at [facility] ([place]), the above implant (L311, 7841-52, [id number]) is [...] Name Priority Date/Time Associated Diagnosis Comments MRI CARDIAC MORPHOLOGY FUNCTION WWO CONTRAST Routine 04/29/2024 11:51 AM EDT Complete heart block LAB SCAN 04/08/2024 12:00 AM EDT BASIC METABOLIC PANEL Routine 10/22/2023 2:41 AM EST COLONOSCOPY Routine 09/18/2023 3:57 PM EST HEMOGLOBIN A1C Routine 08/19/2011 5:44 PM EST from Last 3 Months or Most Recently Relevant to Health Maintenance Results * MRI Cardiac Morphology Function wwo Contrast (04/29/2024 11:51 AM EDT) WORKSTATION ID [id number] DH RAD Anatomical Region Laterality Modality Magnetic Resonan ce Impressions 05/03/2024 10:01 PM EDT Normal size and normal ejection fraction of the left and right ventricle. Mild to moderate enlargement of the left atrium. No abnormal increase in myocardial signal before contrast that would indicate edema. Also, no abnormal myocardial enhancement. No evidence of postischemic change, infection, or infiltrative cardiomyopathy. Thank you for letting us participate in the care of this patient. ??If you are a health care provider and have any questions regarding this report, please contact the number below. ??For patients who have questions please contact the health child care teacher that requested your imaging first. ? Narrative 05/03/2024 10:01 PM EDT EXAMINATION: MRI CARDIAC MORPHOLOGY FUNCTION WWO CONTRAST CLINICAL HISTORY: Myocarditis suspected; chb, ? inflammatory/infiltrative disease I44.2, Atrioventricular block, complete COMPARISON: None. TECHNIQUE: Axial HASTE without contrast. Short and long axis cine steady-state free precession without contrast. ?? Short and long axis rest perfusion and delayed enhancement after intravenous administration of 32 cc of Dotarem Post-processing performed on an independent computer workstation. Patient's calculated body surface area: 1.9 m^2 FINDINGS: Chambers Left ventricle: Normal size of the left ventricle. Mild 15-16 mm focal thickening at the base of the interventricular septum without obstruction of the left ventricular outflow tract. Right ventricle: Normal morphology and structure. Atria: Mild to moderate enlargement of the left atrium. Left-sided pulse generator with right atrial and right ventricular lead. Myocardium Non-contrast series: No abnormal myocardial signal on non-contrast imaging. Post-contrast series: Normal left ventricular myocardial enhancement during rest perfusion. Normal myocardial signal nulling on the postcontrast inversion recovery images. No abnormal delayed enhancement. Wall motion abnormalities: No global or segmental wall motion abnormalities. Valves: No valvulopathy identified. Pericardium: No pericardial thickening or effusion. Aorta: Normal contour and caliber. Other thoracic great vessels: Normal contour and caliber. Non-cardiovascular structures: No significant findings. QUANTITATIVE DATA: LEFT VENTRICLE: LV Mass: 85 g LV End-Diastolic Volume: 124 mL LV End-Systolic Volume: 52 mL Stroke Volume: 72 mL LV Ejection Fraction: 58% Cardiac Output: 5.4 L/min Anteroseptal Wall Thickness: 6 mm Posterolateral Wall Thickness: 7 mm End-Diastolic Dimension: 5.2 cm End-Systolic Dimension: 3.4 cm RIGHT VENTRICLE: RV End-Diastolic Volume: 98 mL RV End-Systolic Volume: 25 mL RV Stroke Volume: 73 mL RV Ejection Fraction: 75% Procedure Note Shalonda Ribeiro MD - 05/03/2024 EXAMINATION: MRI CARDIAC MORPHOLOGY FUNCTION WWO CONTRAST CLINICAL HISTORY: Myocarditis suspected; chb, ?inflammatory/infiltrative disease I44.2, Atrioventricular block, complete COMPARISON: None. TECHNIQUE: Axial HASTE without contrast. Short and long axis cine steady-state free precession without contrast. Short and long axis rest perfusion and delayed enhancement afterintravenous administration of 32 cc of Dotarem Post-processing performed on an independent computer workstation. Patient's calculated body surface area: 1.9 m^2 FINDINGS: Chambers Left ventricle: Normal size of the left ventricle. Mild 15-16 mm focal thickening at the base of the interventricular septum without obstructionof the left ventricular outflow tract. Right ventricle: Normal morphology and structure. Atria: Mild to moderate enlargement of the left atrium. Left-sided pulse generator with right atrial and right ventricular lead. Myocardium Non-contrast series: No abnormal myocardial signal on non-contrastimaging. Post-contrast series: Normal left ventricular myocardial enhancementduring rest perfusion. Normal myocardial signal nulling on the postcontrastinversion recovery images. No abnormal delayed enhancement. Wall motion abnormalities: No global or segmental wall motionabnormalities. Valves: No valvulopathy identified. Pericardium: No pericardial thickening or effusion. Aorta: Normal contour and caliber. Other thoracic great vessels: Normal contour and caliber. Non-cardiovascular structures: No significant findings. QUANTITATIVE DATA: LEFT VENTRICLE: LV Mass: 85 g LV End-Diastolic Volume: 124 mL LV End-Systolic Volume: 52 mL Stroke Volume: 72 mL LV Ejection Fraction: 58% Cardiac Output: 5.4 L/min Anteroseptal Wall Thickness: 6 mm Posterolateral Wall Thickness: 7 mm End-Diastolic Dimension: 5.2 cm End-Systolic Dimension: 3.4 cm RIGHT VENTRICLE: RV End-Diastolic Volume: 98 mL RV End-Systolic Volume: 25 mL RV Stroke Volume: 73 mL RV Ejection Fraction: 75% IMPRESSION Normal size and normal ejection fraction of the left and rightventricle. Mild to moderate enlargement of the left atrium. No abnormal increase in myocardial signal before contrast that wouldindicate edema. Also, no abnormal myocardial enhancement. No evidence ofpostischemic change, infection, or infiltrative cardiomyopathy. Thank you for letting us participate in the care of this patient. If youare a health care provider and have any questions regarding this report,please contact the number below. For patients who have questions please contactthe health child care teacher that requested your imaging first. Electronically signed by: Shalonda Mccain MD, [facility] ([phone]), at 05/03/2024 10:01 PM Luis Alfredo Velazquez MD IMG MRI ORDERAB LES * Scan Doc: Lab (04/08/2024 12:00 AM EDT) Narrative 04/08/2024 12:00 AM EDT Ordered by an unspecified provider. Scanning Provider MEDIA MGR SCAN EXT O RDR/RSLT * (ABNORMAL) Basic Metabolic Panel (non-fasting) (10/22/2023 2:41 AM EST) Glucose 115 65 - 199 mg/dL [facility] Comment:Diabetes: >=200 mg/d L plus symptoms Blood Urea Nitrogen 21(H) 8 - 18 mg/dL [facility] Creatinine 1.12 0.70 - 1.20 mg/dL [facility] Sodium 142 135 - 145 mmol/L [facility] Potassium 3.8 3.5 - 5.0 mmol/L [facility] Comment: Please note: ??Patients with WBC >100,000 may have falsely elevated Potassium levels. ??For accurate Potassium quantification in these patients send serum separator tube (gold top) for subsequent determinations. ??Contact the Clinical Chemistry Laboratory if there are any questions. Chloride 107 98 - 107 mmol/L [facility] Carbon Dioxide 23 22 - 31 mmol/L [facility] Anion Gap 12 5 - 15 mmol/L [facility] Calcium 9.1 8.5 - 10.5 mg/dL [facility] Est Glomerular Filtration Rate 56(L) >=60 mL/min/1. 73 m?? [facility] Comment: This patient's estimated GFR [...] In Lab Glenn Miranda MD CHEMISTRY ORDERABLES [facility] [place] [address] * COLONOSCOPY (09/18/2023 3:57 PM EST) COLONOSCOPY [facility] Endoscopy ___ Procedure Date: 09/18/2023 3:57 PM ? Patient Name: Kim Funes ? Date of : 1960 ? Age: 63 ? Order #: [id number] ? Instrument Name: [id number] ? ___ Procedure: ? Colonoscopy Indications: ? [...] preparation was evaluated ? using the BBPS (Lyons Bowel ? Preparation Scale) with scores of: [...] ? - Please have labs checked at [facility]. ? - Await pathology results. ? Attending Participation: ? I personally performed the entire procedure. ? _ L. Jose Rachel MD 09/18/2023 5:05:33 PM Number of Addenda: 0 Note Initiated On: 09/18/2023 3:57 PM [facility]ATION 09/18/2023 3:57 PM EST Marcio Devlin DO GENERAL SURGICAL ORD ERABLES [facility]ATION * HEMOGLOBIN A1C (08/19/2011 5:44 PM EST) Hemoglobin A1c 5.6 4.3 - 6.1 % [facility] Estimated Average Glucose 114 mg/dL [facility] Comment: eAG equivalents for HbA1c percentages: HbA1c(%) [...] into estimated average glucose values. ??Diabetes Care 2008:31(8):1803-1035. Blood specimen (specimen) 08/19/2011 5:44 PM EST 08/19/2011 5:48 PM EST Marc Chan MD CHEMISTRY ORDERABLES TYSHAWN MILLENNIUM from Last 3 Months or Most [...] capacity to make decision: Yes Care Teams Industrial Tech Instructor Relationship Specialty Start Date End Date Marcio Devlin DO [address] [place] [phone] PCP - General Family Medicine 11/11/17
--- OUTSIDE RECORDS SUMMARY | 2024-06-14 15:25 | XMS_ITS | Encounter Summary ---
Author Organization [facility] [place] [address] Care Team Providers Care Floor Covering Layer Name Role Phone Marcio Devlin DO Primary Care Provider [phone] Encounter Details Date Type Department Care Team (Latest Contact Info) Description 04/29/2024 Travel Social History Tobacco Use Types Packs/Day Years Used Date Smoking Tobacco: Never Smokeless Tobacco: Never Alcohol Use Standard Drinks/Week Comments Yes 0 (1 standard drink = 0.6 oz pure alcohol) once every couple of months or less [facility] Utilities Answer Date Recorded In [...] in a usp (including now)? No 10/21/2023 IPV Inpatient Questions [...] 2:00 PM EDT Appointment Non[place] [phone] Luis Alfredo Velazquez MD [facility] [place] [address] 07/02/2024 4:00 PM EDT Office Visit Cardiology at [address] [address] [place] [facility] [place] [address] 07/02/2024 4:40 PM EDT Office Visit Cardiology at [address] [phone] Luis Alfredo Velazquez MD [facility] [place] [address] 07/18/2024 9:00 AM EST Hospital Encounter Non-Invasive Cardiology Lab [place] [phone] Arrived 07/27/2024 3:30 PM EST Office Visit Rheumatology at [place] [phone] Gabe Fong MD [facility] [place] [address] 12/07/2024 2:30 PM EDT TH Visit (TeleHealth) Gastroenterology at [place] [phone] Rosemarie Morrow APRN [facility] [place] [address] documented as of this encounter Visit Diagnoses Not on filedocumented in this encounter Care Teams Floor Covering Layer Relationship Specialty Start Date End Date Marcio Devlin DO [address] [place] [id number] PCP - General Family Medicine 11/11/17 documented as of this encounter
--- OUTSIDE RECORDS SUMMARY | 2024-06-14 15:25 | XMS_ITS | Encounter Summary ---
Author Organization [facility] [place] [address] Care Team Providers Care Securities Trader Name Role Phone Marcio Devlin DO Primary Care Provider [phone] Encounter Details Date Type Department Care Team (Latest Contact Info) Description 06/07/2024 2:30 PM EDT TH Visit (TeleHealth) [place] [phone] Dajuan Rachel MD [facility] [place] [address] Ulcerative pancolitis with complication; Abnormal liver function test Social History Tobacco Use Types Packs/Day Years Used Date Smoking Tobacco: Never Smokeless Tobacco: Never Alcohol Use Standard Drinks/Week Comments Yes 0 (1 standard drink = 0.6 oz pure alcohol) once every couple of months or less [facility] Utilities Answer Date Recorded In the [...] in a halfway (including now)? No 10/21/2023 DH IPV Inpatient [...] * Patient Instructions* Dajuan Rachel MD - 06/07/2024 2:30 PM EDT # Continue the Rinvoq # Check stool test for calprotectin at [facility] # Have routine labs drawn # Will reach out to Dr Cruz in the Liver clinic about possible follow-up with her # Follow-up with Delilah Morrow APRN in about 6 months documented in this encounter Progress Notes * Dajuan Rachel MD - 06/07/2024 2:30 PM EDT [facility] IBD PROGRAM ESTABLISHED PATIENT TELEVISIT Patient Active Problem List Diagnosis Pacemaker Overview Note: Algorithm Developer Model # Serial # Generator [employer] [id number] Atrial Lead [employer] [id number] Ventricular Lead [employer] [id number] 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 Complete heart block Overview Note: 10/20 p/w fatigue, s/p A/V sequential PPM Prediabetes [...] Colonoscopy 09/19/08 (Dr. Shady Luz at [facility]) for surveillance for dysplasia. Areas [...] iritis Escalated to weekly Humira 11/2019. ADA ([place]) from 6 q 2wk to 12.7 qwk, as well as BID SSZ Colonoscopy Oct 2019: normal rectum, mod-severe inflammation and narrowing from 6-25 cm from the anus, normal remainder of colon. Path: mild active chronic colitis in ac/tc/dc/sc, severe active colitis with ulceration in proximal rectum Colonoscopy December 2020 - severe involvement of L colon, crsh-[id number] involvement of transverse and R colon. Worse compared to last exam. SSA at hepatic flexure Adalimumab level ([place]) was 12.7 Switched to Stelara ( 03/21/21, first infusion dose) d/t Lost of response to Humira. Stopped Uceris and sulfasalazine in January 2021. [place] 09/2022 - tubular featureless L colon with slightly diminished vascular pattern. Histology withmild colitis in sigmoid and inactive in descending. SSA in hep flex. [place] 09/2023 - In remission - altered architecture, as above. No dysplasia on histology. 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 About twice per day. Stool is not watery and soft - only partially formed. No cramps or bleeding Joints feel good. Weight is stable. Had a pacemaker put in last Oct - gained 10 pounds since then. Please see Qorus questionnaire results below for further details re current symptoms. [facility] Pre-Visit Questionnaire 06/06/2024 12:10 PM EDT - Filed by Patient Number One Goal/Concern Alot of loose bowel movements IBD Dx Ulcerative Colitis Believe Will Benefit from Tx Change No Avg Liquid/Soft Stool per Day 2 Stool Frequency/Day Normal BM Urgency Last 7 days 3 Abd Pain Severity/Day None Blood in Stool No blood seen BM with Blood Alone No Well-being Generally well ED Visit Due to IBD No Hospitalized for IBD No Current Prednisone Use No Current Opioid Use for IBD No Confidence Level to Manage IBD 10 IBD Qorus Provider Questionnaire Did you and your patient discuss your patient???s number one concern today? primary concern discussed How recently have you assessed for mucosal healing with endoscopy/imaging? more than 6 months and less than 12 months How recently have you assessed for mucosal healing with fecal calprotectin? more than 12 months andless than 3 years At the most recent assessment, had your [...] assess for mucosal healing with fecal calprotectin? within the next 6 months Which medication(s) is your patient currently taking for their IBD? Other specified medication(s): Upadacitinib If your patient has NOT achieved steroid-free mucosal healing, are you making any treatment changestoday? Other specified treatment change(s): Not relevant - patient has mucosal healing What is your Provider Global Assessment (PGA) for this patient today? Mild Do you believe your patient is at high risk of going to the ED for their IBD within the next month?No Review of systems: 14-point review of systems reviewed and negative except as above. Physical exam: No Physical Examination performed during this telemedicine visit Laboratory studies, imaging, and procedures (my review of prior records): Reviewed labs from April 08 drawn at [facility]. CBC, LFTs, lipids, CRP all unremarkable with exception of elevated alkaline phosphatase. It has been in the 1 30-1 40 rangefor the last year or so. Assessment and Plan: Ms. Funes is a 64 y.o. patient with history of ulcerative colitis, ankylosing spondylitis, MÉNDEZ. Has had a change in her bowel habits over the last couple of months. Not particularly dramatic and may not truly represent loss of remission. However, we will check a fecal calprotectin at [facility]. Recommend repeat colonoscopy towards the end of next year and no later than September 2025. Due for routine labs no later than early July. With persistently elevated alk phos in the 130-140 range and history of biopsy- proven MÉNDEZ, will see if she can reestablish in the hepatology clinic. May want to consider MRCP and/or repeat FibroScan. We discussed the following recommendations that were copied to the After Visit Summary: # Continue the Rinvoq # Check stool test for calprotectin at [facility] # Have routine labs drawn # Will reach out to Dr Cruz in the Liver clinic about possible follow-up with her # Follow-up with Delilah Morrow APRN in about 6 months The patient was located in [place] at the time of their visit. Freddy Rachel MD Rn Orthopedicoffice cashier Co-Director, [facility] Section of Gastroenterology [place] [address] documented in this encounter Plan of Treatment Upcoming Encounters Date Type Department Care Team (Late st Contact Info) Description 07/02/2024 2:00 PM EDT Appointment Non-[place] [phone] Luis Alfredo Velazquez MD [facility] [place] [address] 07/02/2024 4:00 PM EDT Office Visit Cardiology at [address] [phone] aMrs Green PA [facility] [place] [address] 07/02/2024 4:40 PM EDT Office Visit Cardiology at [address] [address] Luis Alfredo Velazquez MD [facility] [place] [address] 07/18/2024 9:00 AM EST Hospital Encounter Non-[place]vasive [place] [phone] Arrived 07/27/2024 3:30 PM EST Office [place] [phone] Gabe Fong MD [facility] [place] [address] 12/07/2024 2:30 PM EDT TH Visit (TeleHealth) Gastroenterology at [place] [phone] Rosemarie Morrow, SKIP [facility] [place] [address] Scheduled Orders Name Type Priority Associated Diagnoses Orde r Schedule Calprotectin, Stool Lab Routine Ulcerative pancolitis with complication Expected: 06/07/2024 (Approximate), Expires: 12/07/2024 Gamma GT Lab Routine Abnormal liver function test Expected: 06/07/2024 (Approximate), Expires: 12/07/2024 documented as of this encounter Visit Diagnoses Diagnosis Ulcerative pancolitis with complication Abnormal liver function test Other abnormal blood chemistry documented in this encounter Care Teams Securities Trader Relationship Specialty Start Date End Date Marcio Devlin DO [address] [place] [address] [place] [address] PCP - General Family Medicine 11/11/17 documented as of this encounter
--- OUTSIDE RECORDS SUMMARY | 2024-06-14 15:25 | XMS_ITS | Encounter Summary ---
Author Organization [facility] [place] [address] Care Team Providers Care Machine Operator Farmworker Name Role Phone Marcio Devlin DO Primary Care Provider [phone] Reason for Referral * Diagnostic Test (Routine) - Closed Specialty Diagnoses / Procedures Referred By Contlyn t Referred To Contact Radiology Diagnoses Complete heart block Procedures MRI Cardiac Morphology Function Luis Alfredo Owens MD [facility] [place] [address] [place] [address] Referral ID Status Reason Start Date Expiration Date V isits Requested Visits Authorized [id number] Closed Specialty Service Requested 11/26/2023 05/28/2025 1 1 Reason for Visit * Diagnostic Test (Routine) - Closed Specialty Diagnoses / Procedures Referred By Contlyn t Referred To Contact Radiology Diagnoses Complete heart block Procedures MRI Cardiac Morphology Function Luis Alfredo Renee MD [facility] [place] [address] [place] [address] Referral ID Status Reason Start Date Expiration Date V isits Requested Visits Authorized [id number] Closed Specialty Service Requested 11/26/2023 05/28/2025 1 1 Encounter Details Date Type Department Care Team (Latest Contact Info) Description 04/29/2024 9:05 AM EDT - 04/29/2024 11:59 PM EDT Hospital Encounter MRI at [facility] [place] [phone] Luis Alfredo Velazquez MD [facility] [place] [address] Complete heart block Discharge Disposition: Home Social History Tobacco Use Types Packs/Day Years Used Date Smoking Tobacco: Never Smokeless Tobacco: Never Alcohol Use Standard Drinks/Week Comments Yes 0 (1 standard drink = 0.6 oz pure alcohol) once every couple of months or less [facility] Utilities Answer Date Recorded In the past 12 months has th e [employer], gas, oil, or water [employer] threatened to shut off services in your [...] in a fpc (including now)? No 10/21/2023 DH IPV Inpatient [...] by mouth daily. SUMAtriptan (IMITREX) 20 mg/actuation [place], Non-Aerosol 1 spray as needed. 11/03/2017 metFORMIN [...] 1 TABLET DAILY 30 tablet 3 02/03/2024 05/26/2024 documented as of this encounter Plan of Treatment Upcoming Encounters Date Type Department Care Team (Late st Contact Info) Description 07/02/2024 2:00 PM EDT Appointment Non-[place] [address] Luis Alfredo Velazquez MD [facility] [place] [address] 07/02/2024 4:00 PM EDT Office Visit Cardiology at [address] [phone] Mars Green PA [facility] [place] [address] 07/02/2024 4:40 PM EDT Office Visit Cardiology at [address] [address] Luis Alfredo Velazquez MD [facility] [place] [address] 07/18/2024 9:00 AM EST Hospital Encounter Non-[place] [phone] Arrived 07/27/2024 3:30 PM EST Office [place] [address] Gabe Fong MD [facility] [place] [address] 12/07/2024 2:30 PM EDT TH Visit (TeleHealth) [place] [address] Rosemarie Morrow APRN [facility] [place] [address] documented as of this encounter Procedures Procedure Name Priority Date/Time Associated Diagnosis Comments MRI CARDIAC MORPHOLOGY FUNCTION WWO CONTRAST Routine 04/29/2024 11:51 AM EDT Complete heart block documented in this encounter Results * MRI Cardiac Morphology Function wwo Contrast (04/29/2024 11:51 AM EDT) [employer] WORKSTATION ID [id number] [facility] Anatomical Region Laterality Modality Magnetic Resonan ce [...] who have questions please contact the health janitor caretaker that requested your imaging first. ? Electronically signed by: Shalonda Mccain MD, [facility] ([phone]), at 05/03/2024 10:01 PM Narrative 05/03/2024 10:01 PM EDT EXAMINATION: MRI [...] patients who have questions please contactthe health janitor caretaker that requested your imaging first. Electronically signed by: Shalonda Mccain MD, [facility] ([phone]), at 05/03/2024 10:01 PM Luis Alrfedo Velazquez MD IMG MRI ORDERAB LES documented in this encounter Visit Diagnoses Diagnosis Complete heart block Atrioventricular block, complete documented in this encounter Administered Medications Inactive Administered Medications - up to 3 most recent administrations Medication Order MAR Action Action Date Dose Rate Site gadoterate meglumine (Dotarem) (0.5 mMol/mL) injection solution 0-100 mL 0-100 mL, Intravenous, ONCE PRN, 1 dose, Starting on Lorna 04/29/24 at 1133, Until Lorna 04/29/24 at 1133, Per Protocol, Radiology Contrast, Routine Given 04/29/2024 11:33 AM EDT 32 mLs documented in this encounter Care Teams Machine Operator Farmworker Relationship Specialty Start Date End Date Marcio Devlin DO [address] [place] [address] PCP - General Family Medicine 11/11/17 documented as of this encounter
--- OUTSIDE RECORDS SUMMARY | 2024-06-14 15:25 | XMS_ITS | Encounter Summary ---
Author Organization [facility] [place] [address] Care Team Providers Care Radial Drill Press Set Up Operator Name Role Phone Marcio Devlin DO Primary Care Provider [phone] Reason for Visit * Reason Comments Medication Refill Encounter Details Date Type Department Care Team (Late st Contact Info) Description 05/24/2024 Refill [place] [address] Gabe Fong MD [facility] [place] [address] Social History Tobacco Use Types Packs/Day Years Used Date Smoking Tobacco: Never Smokeless Tobacco: Never Alcohol Use Standard Drinks/Week Comments Yes 0 (1 standard drink = 0.6 oz pure alcohol) once every couple of months or less [facility] Utilities Answer Date Recorded In the past 12 months has [employer] electric, gas, oil, or water company threatened [...] 2:00 PM EDT Appointment [place] [phone] Luis Alfredo Velazquez MD [facility] [place] [address] 07/02/2024 4:00 PM EDT Office Visit Cardiology at [address] [phone] Mars Green PA [facility] [place] [address] 07/02/2024 4:40 PM EDT [place] [address] Luis Alfredo Velazquez MD [facility] [place] [address] 07/18/2024 9:00 AM EST Hospital Encounter Non-Invasive [place] [address] Arrived 07/27/2024 3:30 PM EST Office [place] [address] Gabe Fong MD [facility] [address] 12/07/2024 2:30 PM EDT TH Visit (TeleHealth) Gastroenterology at [place] [phone] Rosemarie Morrow, SKIP [facility] [place] [address] documented as of this encounter Visit Diagnoses Not on filedocumented in this encounter Care Teams Radial Drill Press Set Up Operator Relationship Specialty Start Date End Date Marcio Devlin DO [address] [place] [address] PCP - General Family Medicine 11/11/17 documented as of this encounter
--- OUTSIDE RECORDS SUMMARY | 2024-06-14 15:26 | XMS_ITS | Encounter Summary ---
Author Organization [facility] [place] [address] Care Team Providers Care Streetcar Dispatcher Name Role Phone Marcio Devlin DO Primary Care Provider [phone] Encounter Details Date Type Department Care Team (Latest Contact Info) Description 11/26/2023 Travel Social History Tobacco Use Types Packs/Day Years Used Date Smoking Tobacco: Never Smokeless Tobacco: Never Alcohol Use Standard Drinks/Week Comments Yes 0 (1 standard drink = 0.6 oz pure alcohol) once every couple of months or less [facility] Utilities Answer Date Recorded In [...] 2:00 PM EDT Appointment Non-[place] [phone] Luis Alfredo Velazquez MD [facility] [place] [address] 07/02/2024 4:00 PM EDT Office Visit Cardiology at [address] [phone] Mars Green PA [facility] [place] [address] 07/02/2024 4:40 PM EDT Office Visit Cardiology at [address] [address] Luis Alfredo Velazquez MD [facility] [place] [address] 07/18/2024 9:00 AM EST Hospital Encounter Non-Invasive Cardiology Lab [place] [phone] Arrived 07/27/2024 3:30 PM EST Office Visit Rheumatology at [place] [phone] Gabe Fong MD [facility] [place] [place] [address] 12/07/2024 2:30 PM EDT TH Visit (TeleHealth) Gastroenterology at [place] [phone] Rosemarie Morrow APRN [facility] [place] [address] documented as of this encounter Visit Diagnoses Not on filedocumented in this encounter Care Teams Streetcar Dispatcher Relationship Specialty Start Date End Date Marcio Devlin DO [address] [place] [address] PCP - General Family Medicine 11/11/17 documented as of this encounter
--- OUTSIDE RECORDS SUMMARY | 2024-06-14 15:26 | XMS_ITS | Encounter Summary ---
Author Organization [facility] Address [facility] [place] [address] Care Team Providers Care Cap Inspector Name Role Phone Marcio Devlin DO Primary Care Provider [phone] Encounter Details Date Type Department Care Team (Late st Contact Info) Description 11/04/2023 1:00 PM EST Office Visit Cardiology at [address] [phone] Lorri Mckinney PA [facility] [place] [address] Pacemaker [Z95.0] Social History Tobacco Use Types Packs/Day Years Used Date Smoking Tobacco: Never Smokeless Tobacco: Never Alcohol Use Standard Drinks/Week Comments Yes 0 (1 standard drink = 0.6 oz pure alcohol) once every couple of months or less [facility] Utilities Answer Date Recorded In the past 12 months has [employer] electric, gas, oil, or water company threatened [...] Cardiac Electrophysiology Post-Implant Device Interrogation Kim Funes [id number] 11/04/2023 History: Kim Funes is a 63 y.o. 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 Lives in [facility] with her , Lucien. 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 Physical Exam: Vitals: 11/04/23 1245 BP: 174/73 [...] prior studies for comparison. Device Interrogation: Data Cab Driver Model # Serial # Generator Shipu [id number] Atrial Lead [employer] [id number] Ventricular Lead [employer] [id number] Diagnostics Pacing Mode: DDD at LRL 60 bpm Presenting EGMs: /STATION INSPECTOR Underlying Rhythm: sinus rhythm in the 60s without intrinsic ventricular conduction >30 bpm Atrial Episodes: 0 Ventricular Episodes: 0 Atrial Pacin% Ventricular Pacin% Battery and Leads Voltage: not reported Status: 10.5 yrs (after programming) Magnet Rate: 100 bpm Charge Time: N/A Impedances (ohms) Sensing (mV) Thresholds HV RA RV LV RA RV LV RA RV LV N/A 558 718 N/A 5.0 STATION INSPECTOR N/A 0.9V @ 0.4ms 0.4V @ 0.4ms N/A Assessment: 63 y.o. 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 Recommend general cardiology follow-up per Discharge Summary YURIY Alberto 11/04/2023 Pager: [phone] documented in this encounter Plan of Treatment Upcoming Encounters Date Type Department Care Team (Late st Contact Info) Description 07/02/2024 2:00 PM EDT Appointment Non-[place] [address] Luis Alfredo Velazquez MD [facility] [address] [place] [address] 07/02/2024 4:00 PM EDT Office Visit Cardiology at [address] [phone] Mars Green PA [facility] [place] [address] 07/02/2024 4:40 PM EDT Office Visit Cardiology at [address] [phone] Luis Alfredo Velazquez MD [facility] [place] [address] 07/18/2024 9:00 AM EST Hospital Encounter Non-[place] [address] Arrived 07/27/2024 3:30 PM EST Office [place] [address] Gabe Fong MD [facility] [place] [address] 12/07/2024 2:30 PM EDT TH Visit (TeleHealth) [place] [address] Rosemarie Morrow APRN [facility] [place] [address] documented as of this encounter Visit Diagnoses Diagnosis Pacemaker [Z95.0] Cardiac pacemaker in situ documented in this encounter Care Teams Cap Inspector Relationship Specialty Start Date End Date Marcio Devlin DO [address] [place] [address] PCP - General Family Medicine 11/11/17 documented as of this encounter
--- OUTSIDE RECORDS SUMMARY | 2024-06-14 15:26 | XMS_ITS | Encounter Summary ---
Author Organization [facility] [address] Care Team Providers Care Metal Furniture Panel Coverer Name Role Phone Marcio Devlin DO Primary Care Provider [phone] Reason for Visit * Reason Onset Date Comments Post Procedure Call 10/31/2023 Encounter Details Date Type Department Care Team (Late st Contact Info) Description 10/31/2023 Notes Only Cardiology at [address] [address] Veronica Gann, RN Post Procedure Call Social History Tobacco Use Types Packs/Day Years Used Date Smoking Tobacco: Never Smokeless Tobacco: Never Alcohol Use Standard Drinks/Week Comments Yes 0 (1 standard drink = 0.6 oz pure alcohol) once every couple of months or less [facility] Utilities Answer Date Recorded In the past 12 months has [employer], gas, oil, or water [employer] threatened to shut off services in your [...] a nursing home (including now)? No 10/21/2023 DH IPV [...] PM EDT Appointment Non-[place]vasive [place] [address] Luis Alfredo Velazquez MD [facility] [place] [address] 07/02/2024 4:00 PM EDT Office Visit Cardiology at [place] [address] Mars Green PA [facility] [place] [address] 07/02/2024 4:40 PM EDT Office Visit Cardiology at [place] [address] Luis Alfredo Velazquez MD [facility] [place] [address] 07/18/2024 9:00 AM EST Hospital Encounter Non-Invasive Cardiology Lab [place] [address] Arrived 07/27/2024 3:30 PM EST Office Visit Rheumatology at [place] [address] Gabe Fong MD [facility] [place] [address] 12/07/2024 2:30 PM EDT TH Visit (TeleHealth) Gastroenterology at [place] [address] Rosemarie Morrow APRN [facility] [place] [address] documented as of this encounter Visit Diagnoses Not on filedocumented in this encounter Care Teams Metal Furniture Panel Coverer Relationship Specialty Start Date End Date Marcio Devlin DO [address] [place] [address] PCP - General Family Medicine 11/11/17 documented as of this encounter
--- OUTSIDE RECORDS SUMMARY | 2024-06-14 15:26 | XMS_ITS | Encounter Summary ---
Author Organization [facility] [place] [address] Care Team Providers Care Asphalt Raker Name Role Phone Marcio Devlin DO Primary Care Provider [phone] Encounter Details Date Type Department Care Team (Latest Contact Info) Description 04/19/2024 10:00 AM EDT - 04/19/2024 11:59 PM EDT Hospital Encounter Non-Invasive [place] [address] Discharge Disposition: Home Social History Tobacco Use Types Packs/Day Years Used Date Smoking Tobacco: Never Smokeless Tobacco: Never Alcohol Use Standard Drinks/Week Comments Yes 0 (1 standard drink = 0.6 oz pure alcohol) once every couple of months or less [facility] Utilities Answer Date Recorded In the past 12 months has [employer], gas, oil, or water [employer] threatened to shut off services in your [...] by mouth daily. SUMAtriptan (IMITREX) 20 mg/actuation [place], Non-Aerosol 1 spray as needed. 11/03/2017 metFORMIN [...] 2:00 PM EDT Appointment Non-Invasive [place] [phone] Luis Alfredo Velazquez MD [facility] [place] [address] 07/02/2024 4:00 PM EDT Office Visit Cardiology at [address] [phone] [place], [place] [facility] [address] [place] [phone] 07/02/2024 4:40 PM EDT Office Visit Cardiology at [place] [phone] Luis Alfredo Velazquez MD [facility] [place] [address] 07/18/2024 9:00 AM EST Hospital Encounter Non-[place] [address] Arrived 07/27/2024 3:30 PM EST Office Visit Rheumatology at [place] [phone] Gabe Fong MD [facility] [place] [address] 12/07/2024 2:30 PM EDT TH Visit (TeleHealth) Gastroenterology at [place] [phone] Rosemarie Morrow APRN [facility] [place] [address] documented as of this encounter Procedures Procedure Name Priority Date/Time Associated Diagnosis Comments PRO PM INTERROGATION REMOTE UP TO 90 DAYS Routine 02/23/2024 8:02 AM EDT documented in this encounter Results * Cardiac Device Check - Remote (02/23/2024 8:02 AM EDT) Anatomical Region Laterality Modality Other 02/23/2024 8:02 AM EDT Jim Limon MD IMPLANTABLE CARDIAC DEVICE documented in this encounter Visit Diagnoses Not on filedocumented in this encounter Care Teams Asphalt Raker Relationship Specialty Start Date End Date Marcio Devlin DO [address] [place] [address] PCP - General Family Medicine 11/11/17 documented as of this encounter
--- OUTSIDE RECORDS SUMMARY | 2024-06-14 15:26 | XMS_ITS | Encounter Summary ---
Author Organization [facility] [place] [address] Care Team Providers Care Lap Regulator Name Role Phone Marcio Devlin DO Primary Care Provider Encounter Details Date Type Department Care Team (Latest Contact Info) Description 12/04/2023 Travel Social History Tobacco Use Types Packs/Day Years Used Date Smoking Tobacco: Never Smokeless Tobacco: Never Alcohol Use Standard Drinks/Week Comments Yes 0 (1 standard drink = 0.6 oz pure alcohol) once every couple of months or less [facility] Utilities Answer Date Recorded In the [...] 2:00 PM EDT Appointment Non-Invasive [place] [phone] Luis Alfredo Velazquez MD [facility] [address] 07/02/2024 4:00 PM EDT Office Visit Cardiology at [address] [phone] [place] [facility] [place] [address] 07/02/2024 4:40 PM EDT Office Visit Cardiology at [address] [phone] Luis Alfredo Velazquez MD [facility] [place] [address] 07/18/2024 9:00 AM EST Hospital Encounter Non-Invasive Cardiology Lab [place] [phone] Arrived 07/27/2024 3:30 PM EST Office Visit Rheumatology at [place] [phone] Gabe Fong MD [facility] [place] [address] 12/07/2024 2:30 PM EDT TH Visit (TeleHealth) Gastroenterology at [place] [phone] Rosemarie Morrow APRN [facility] [place] [address] documented as of this encounter Visit Diagnoses Not on filedocumented in this encounter Care Teams Lap Regulator Relationship Specialty Start Date End Date Marcio Devlin DO [address] [place] [address] PCP - General Family Medicine 11/11/17 documented as of this encounter
--- OUTSIDE RECORDS SUMMARY | 2024-06-14 15:26 | XMS_ITS | Encounter Summary ---
Author Organization [facility] [place] [address] Care Team Providers Care Manager Of Data Name Role Phone Marcio Devlin DO Primary Care Provider [phone] Encounter Details Date Type Department Care Team (Late st Contact Info) Description 11/19/2023 Notes [place] [address] Rosemarie Morrow, SKIP [facility] [place] [address] Social History Tobacco Use Types Packs/Day Years Used Date Smoking Tobacco: Never Smokeless Tobacco: Never Alcohol Use Standard Drinks/Week Comments Yes 0 (1 standard drink = 0.6 oz pure alcohol) once every couple of months or less [facility] Utilities Answer Date Recorded In the past 12 months has [employer], gas, oil, or water company threatened [...] 2:00 PM EDT Appointment Non-Invasive Cardiology Lab [place] [phone] Luis Alfredo Velazquez MD [facility] [place] [address] 07/02/2024 4:00 PM EDT Office Visit Cardiology at [place] [phone] [place] [facility] [place] [address] 07/02/2024 4:40 PM EDT Office Visit Cardiology at [place] [phone] Luis Alfredo Velazquez MD [facility] [place] [address] 07/18/2024 9:00 AM EST Hospital Encounter Non-Invasive Cardiology Lab [place] [phone] Arrived 07/27/2024 3:30 PM EST Office Visit Rheumatology at [place] [phone] Gabe Fong MD [facility] [place] [address] 12/07/2024 2:30 PM EDT TH Visit (TeleHealth) Gastroenterology at [place] [phone] Rosemarie Morrow APRN [facility] GASTROENTEROLOGY [place] [phone] documented as of this encounter Visit Diagnoses Not on filedocumented in this encounter Care Teams Manager Of Data Relationship Specialty Start Date End Date Marcio Devlin DO [address] [place] [address] PCP - General Family Medicine 11/11/17 documented as of this encounter
--- OUTSIDE RECORDS SUMMARY | 2024-06-14 15:26 | XMS_ITS | Encounter Summary ---
Author Organization [facility] [place] [address] Care Team Providers Care Manager Forms Name Role Phone Marcio Devlin DO Primary Care Provider [phone] Encounter Details Date Type Department Care Team (Latest Contact Info) Description 01/06/2024 1:00 PM EDT Office [place] [phone] Gabe Fong MD [facility] [place] [address] High risk medication use; Medication monitoring encounter; [...] every couple of months or less [facility] Utilities Answer Date Recorded In the [...] 2:00 PM EDT Appointment Non-Invasive [place] [phone] Luis Alfredo Velazquez MD [facility] [place] [address] 07/02/2024 4:00 PM EDT Office Visit Cardiology at [address] [phone] [place], YURIY [facility] [place] [address] 07/02/2024 4:40 PM EDT Office Visit Cardiology at [address] [phone] Luis Alfredo Velazquez MD [facility] [place] [address] 07/18/2024 9:00 AM EST Hospital Encounter Non-Invasive [place] [phone] Arrived 07/27/2024 3:30 PM EST Office [place] [phone] Gabe Fong MD [facility] [place] [address] 12/07/2024 2:30 PM EDT TH Visit (TeleHealth) [place] [phone] Rosemarie Morrow APRN [facility] [place] [address] Scheduled Orders Name Type Priority Associated Diagnoses [...] hands documented in this encounter Care Teams Manager Forms Relationship Specialty Start Date End Date Marcio Devlin DO [address] [place] [address] PCP - General Family Medicine 11/11/17 documented as of this encounter
--- OUTSIDE RECORDS SUMMARY | 2024-06-14 15:26 | XMS_ITS | Encounter Summary ---
Author Organization [facility] [place] [address] Care Team Providers Care Satellite Technician Name Role Phone Marcio Devlin DO Primary Care Provider [phone] Encounter Details Date Type Department Care Team (Latest Contact Info) Description 01/20/2024 10:00 AM EDT - 01/20/2024 11:59 PM EDT Hospital Encounter Non-Invasive [place] [phone] Discharge Disposition: Home Social History Tobacco Use Types Packs/Day Years Used Date Smoking Tobacco: Never Smokeless Tobacco: Never Alcohol Use Standard Drinks/Week Comments Yes 0 (1 standard drink = 0.6 oz pure alcohol) once every couple of months or less [facility] Utilities Answer Date Recorded In the past 12 months has [employer], gas, oil, or water [employer] threatened to shut off services in your [...] by mouth daily. SUMAtriptan (IMITREX) 20 mg/actuation [place], Non-Aerosol 1 spray as needed. 11/03/2017 metFORMIN [...] 2:00 PM EDT Appointment Non-[place] [phone] Luis Alfredo Velazquez MD [facility] [place] [address] 07/02/2024 4:00 PM EDT Office Visit Cardiology at [address] [phone] [place], [place] [facility] [address] [place], [place] [phone] 07/02/2024 4:40 PM EDT Office Visit Cardiology at [place] [phone] Luis Alfredo Velazquez MD [facility] [place] [address] 07/18/2024 9:00 AM EST Hospital Encounter Non-[place] [phone] Arrived 07/27/2024 3:30 PM EST Office Visit Rheumatology at [place] [phone] Gabe Fong MD [facility] [place] [address] 12/07/2024 2:30 PM EDT TH Visit (TeleHealth) Gastroenterology at [place] [phone] Rosemarie Morrow APRN [facility] [place] [address] documented as of this encounter Procedures Procedure [...] on filedocumented in this encounter Care Teams Satellite Technician Relationship Specialty Start Date End Date Marcio Devlin DO [address] [place] [address] PCP - General Family Medicine 11/11/17 documented as of this encounter
--- OUTSIDE RECORDS SUMMARY | 2024-06-14 15:26 | XMS_ITS | Encounter Summary ---
Author Organization [facility] [place] [address] Care Team Providers Care Linker Up Name Role Phone Marcio Devlin DO Primary Care Provider [phone] Reason for Visit * Reason Onset Date Comments Other 10/22/2023 Implanted Cardia c Device Education Encounter Details Date Type Department Care Team (Late st Contact Info) Description 10/22/2023 Notes Only Cardiology at [address] [phone] Rafaela Dillon Other (Implanted Cardiac Device Education) Social History Tobacco Use Types Packs/Day Years Used Date Smoking Tobacco: Never Smokeless Tobacco: Never Alcohol Use Standard Drinks/Week Comments Yes 0 (1 standard drink = 0.6 oz pure alcohol) once every couple of months or less [facility] Utilities Answer Date Recorded In the past 12 months has [employer], gas, oil, or water [employer] threatened to shut off services in your [...] to call the Cardiac Device Clinic at [phone] with any questions. Plan: Post op check: 11/04/23 91 day check: will be scheduled by [facility] Remote monitor: Latitude home monitor provided to patient today. Monitor set up demonstrated. Patient instructed to connect monitor and send manual transmission when they arrive home. Rafaela Dillon 10/22/23 documented in this encounter Plan of Treatment Upcoming Encounters Date Type Department Care Team (Late st Contact Info) Description 07/02/2024 2:00 PM EDT Appointment Non-[place] [phone] Luis Alfredo Velazquez MD [facility] [place] [address] 07/02/2024 4:00 PM EDT Office Visit Cardiology at [address] [phone] [place] [facility] [place] [address] 07/02/2024 4:40 PM EDT Office Visit Cardiology at [address] [phone] Luis Alfredo Velazquez MD [facility] [place] [address] 07/18/2024 9:00 AM EST Hospital Encounter Non-Invasive [place] [phone] Arrived 07/27/2024 3:30 PM EST Office [place] [phone] Gabe Fong MD [facility] [place] [address] 12/07/2024 2:30 PM EDT TH Visit (TeleHealth) [place] [phone] Rosemarie Morrow, COPYING MACHINE MECHANIC [facility] [place] [address] documented as of this encounter Visit Diagnoses Not on filedocumented in this encounter Care Teams Linker Up Relationship Specialty Start Date End Date Marcio Devlin DO [address] [place] [address] PCP - General Family Medicine 11/11/17 documented as of this encounter
--- OUTSIDE RECORDS SUMMARY | 2024-06-14 15:26 | XMS_ITS | Encounter Summary ---
Author Organization [facility] [place] [address] Care Team Providers Care Type Cutter Name Role Phone Marcio Devlin DO Primary Care Provider [phone] Encounter Details Date Type Department Care Team (Latest Contact Info) Description 01/06/2024 Travel Social History Tobacco Use Types Packs/Day Years Used Date Smoking Tobacco: Never Smokeless Tobacco: Never Alcohol Use Standard Drinks/Week Comments Yes 0 (1 standard drink = 0.6 oz pure alcohol) once every couple of months or less [facility] Utilities Answer Date Recorded In the past [...] in a mcfp (including now)? No 10/21/2023 IPV Inpatient Questions [...] Appointment Non-[place] [phone] Luis Alfredo Velazquez MD [facility] [place] [address] 07/02/2024 4:00 PM EDT Office Visit Cardiology at [address] [phone] [place] [facility] [place] [address] 07/02/2024 4:40 PM EDT Office Visit Cardiology at [address] [phone] Luis Alfredo Velazquez MD [facility] [place] [address] 07/18/2024 9:00 AM EST Hospital Encounter Non-Invasive Cardiology Lab [place] [phone] Arrived 07/27/2024 3:30 PM EST Office Visit Rheumatology at [place] [phone] Gabe Fong MD [facility] [place] [address] 12/07/2024 2:30 PM EDT TH Visit (TeleHealth) Gastroenterology at [place] [phone] Rosemarie Morrow APRN [facility] [place] [address] documented as of this encounter Visit Diagnoses Not on filedocumented in this encounter Care Teams Type Cutter Relationship Specialty Start Date End Date Marcio Devlin DO [address] [place] [address] PCP - General Family Medicine 11/11/17 documented as of this encounter
--- OUTSIDE RECORDS SUMMARY | 2024-06-14 15:26 | XMS_ITS | Encounter Summary ---
Author Organization [facility] Address [facility] [place] [address] Care Team Providers Care Emergency Detail Driver Name Role Phone Marcio Devlin DO Primary Care Provider Encounter Details Date Type Department Care Team (Late st Contact Info) Description 12/04/2023 3:30 PM EDT Office Visit Cardiology at [address] [phone] [place] PA [facility] [place] [address] Complete heart block; Pacemaker; Pacemaker complications, initial encounter Social History Tobacco Use Types Packs/Day Years Used Date Smoking Tobacco: Never Smokeless Tobacco: Never Alcohol Use Standard Drinks/Week Comments Yes 0 (1 standard drink = 0.6 oz pure alcohol) once every couple of months or less [facility] Utilities Answer Date Recorded In the past 12 months has [employer], gas, oil, or water [email or web address] threatened to shut off services in your [...] in a half-way (including now)? No 10/21/2023 DH IPV Inpatient [...] EDT Cardiac Electrophysiology Clinic Follow-Up Kim Funes [id number] 12/04/2023 History: Ms. Funes is a pleasant [...] Active Problem List Diagnosis Pacemaker Overview Note: Cutter Machine Model # Serial # Generator [employer] [id number] Atrial Lead [employer] [id number] Ventricular Lead [employer] [id number] Implanted on 10/21/23 for high grade AV [...] disease Colonoscopy 09/19/08 (Dr. Shady Luz at [facility]) for surveillance for dysplasia. Areas of [...] 2020 - severe involvement of L colon, qyev-fo-sgzihwgg involvement of transverse and R colon. Worse compared to last exam. SSA at hepatic flexure Adalimumab level (garcía) was 12.7 Switched to Stelara ( 03/21/21, first infusion dose) d/t Lost of response to Humira. Stopped Uceris and sulfasalazine in January 2021. Olar 09/2022 - tubular featureless L colon with [...] disease Colonoscopy 09/19/08 (Dr. Shady Luz at [facility]) for surveillance for dysplasia. Areas of [...] by mouth daily. SUMAtriptan (IMITREX) 20 mg/actuation [place], Non-Aerosol 1 spray as needed. metFORMIN (GLUCOPHAGE) [...] person, place, and time. Device Interrogation: Data Cutter Machine Model # Serial # Generator [employer] [id number] Atrial Lead [employer] [id number] Ventricular Lead [employer] [id number] Diagnostics Pacing Mode: DDD 60/130/130 Presenting EGMs: -TAFFY CANDY MAKER Underlying Rhythm: CHB with escape VVI 30 [...] one week considering current soreness and recent kty-pr-tgohpywurjg period. - Scheduled imaging studies (X-ray) immediately [...] 2:00 PM EDT Appointment Non[place] [phone] Luis Alfredo Velazquez MD [facility] [place] [address] 07/02/2024 4:00 PM EDT Office Visit Cardiology at [address] [phone] [place] PA [facility] [place] [address] 07/02/2024 4:40 PM EDT Office Visit Cardiology at [address] [phone] Luis Alfredo Velazquez MD [facility] [place] [address] 07/18/2024 9:00 AM EST Hospital Encounter Non-[place] [phone] Arrived 07/27/2024 3:30 PM EST Office Visit [place] [phone] Gabe Fong MD [facility] [place] [address] 12/07/2024 2:30 PM EDT TH Visit (TeleHealth) [place] [address] Rosemarie Morrow, SKIP [facility] [place] [address] Scheduled Orders Name Type Priority Associated Diagnoses Orde r Schedule XR Chest PA & Lateral (Generic) Imaging Routine Pacemaker Complete heart block Pacemaker complications, initial encounter Expected: 12/04/2023, Expires: 06/04/2024 documented as of this encounter Visit Diagnoses Diagnosis Complete heart block Atrioventricular block, complete Pacemaker Cardiac pacemaker in situ Pacemaker complications, initial encounter documented in this encounter Care Teams Emergency Detail Driver Relationship Specialty Start Date End Date Marcio Devlin DO [address] [place] [address] PCP - General Family Medicine 11/11/17 documented as of this encounter
--- OUTSIDE RECORDS SUMMARY | 2024-06-14 15:26 | XMS_ITS | Encounter Summary ---
Author Organization [facility] [address] Care Team Providers Care Division Operations Manager Name Role Phone Marcio Devlin DO Primary Care Provider Encounter Details Date Type Department Care Team (Latest Contact Info) Description 01/04/2024 Travel Social History Tobacco Use Types Packs/Day Years Used Date Smoking Tobacco: Never Smokeless Tobacco: Never Alcohol Use Standard Drinks/Week Comments Yes 0 (1 standard drink = 0.6 oz pure alcohol) once every couple of months or less [facility] Utilities Answer Date Recorded In [...] 2:00 PM EDT Appointment Non-[place] [phone] Luis Alfredo Velazquez MD [facility] [place] [place] [address] 07/02/2024 4:00 PM EDT Office Visit Cardiology at [address] [phone] [place] [facility] [place] [address] 07/02/2024 4:40 PM EDT Office Visit Cardiology at [address] [phone] Luis Alfredo Velazquez MD [facility] [place] [address] 07/18/2024 9:00 AM EST Hospital Encounter Non-Invasive Cardiology Lab [place] [phone] Arrived 07/27/2024 3:30 PM EST Office Visit Rheumatology at [place] [phone] Gabe Fong MD [facility] [place] [address] 12/07/2024 2:30 PM EDT TH Visit (TeleHealth) Gastroenterology at [place] [phone] Rosemarie Morrow APRN [facility] [place] [address] documented as of this encounter Visit Diagnoses Not on filedocumented in this encounter Care Teams Division Operations Manager Relationship Specialty Start Date End Date Marcio Devlin DO [address] [place] [address] PCP - General Family Medicine 11/11/17 documented as of this encounter
--- OUTSIDE RECORDS SUMMARY | 2024-06-14 15:26 | XMS_ITS | Encounter Summary ---
Author Organization Formerly [facility] [place] [address] Care Team Providers Care Engraving Plate Maker Name Role Phone Marcio Devlin DO Primary Care Provider [phone] Encounter Details Date Type Department Care Team (Latest Contact Info) Description 11/11/2023 11:00 AM EST TH Visit (TeleHealth) [place] [address] Rosemarie Morrow, CLERICAL CAR CHECKER [facility] [place] [address] Ulcerative pancolitis with complication Social History Tobacco Use Types Packs/Day Years Used Date Smoking Tobacco: Never Smokeless Tobacco: Never Alcohol Use Standard Drinks/Week Comments Yes 0 (1 standard drink = 0.6 oz pure alcohol) once every couple of months or less [facility] Utilities Answer Date Recorded In [...] in a fdc (including now)? No 10/21/2023 DH IPV Inpatient [...] this encounter Progress Notes * Rosemarie Morrow, CLERICAL CAR CHECKER - 11/11/2023 11:00 AM EST [facility] Gastroenterology Telehealth Visit Primary care provider: Marcio [...] disease Colonoscopy 09/19/08 (Dr. Shady Luz at [facility]) for surveillance for dysplasia. Areas of [...] 2020 - severe involvement of L colon, gkpe-jx-kyrerxoc involvement of transverse and R colon. Worse compared to last exam. SSA at hepatic flexure Adalimumab level ([place]) was 12.7 Switched to Stelara ( 03/21/21, first infusion dose) d/t Lost of response to Humira. Stopped Uceris and sulfasalazine in January 2021. [place] 09/2022 - tubular featureless L colon with [...] (Bezet) 10/20/2023 418 ms Final Calculated P [place] 10/20/2023 -12 degrees Final Calculated R [place] 10/20/2023 2 degrees Final Calculated T [place] 10/20/2023 32 degrees Final INTERPRETATION 10/20/2023 Final Value:Sinus rhythm with complete heart block and Junctional bradycardia Abnormal ECG No previous ECGs available Confirmed by MD ILA, JASE ([id number]) on 10/20/2023 10:15:01 AM Admission on 09/18/2023, Discharged on 09/18/2023 Component Date Value Ref Range Status COLONOSCOPY 09/18/2023 Final Value:[facility] Endoscopy Procedure Date: 09/18/2023 3:57 PM Patient Name: Kim Funes Date of : 1960 Age: 63 Order #: [id number] Instrument Name: [id number] Procedure: Colonoscopy Indications: Disease activity assessment of [...] bowel preparation was evaluated using the BBPS (Transfer Bowel Preparation Scale) with scores of: Right [...] Rinvoq. - Please have labs checked at [facility]. - Await pathology results. Attending Participation: I personally performed the entire procedure. L. Jose Rachel MD 09/18/2023 5:05:33 PM Number of Addenda: 0 Note Initiated On: 09/18/2023 3:57 PM Surgical Pathology Report 09/18/2023 Final Value:[id number] Location: 4T; [facility]; A The signing pathologist has (i) examined [...] MD Verified: 09/26/2023 15:23 Pathologist Performed at: -[facility] Dept. of Pathology, [facility] [place] [address] Pantry Goods Maker: Dg Brown MD, FCAP, CLIA Certificate: [id number] SPECIMEN(S) SUBMITTED A - nondirected right colon [...] Check LFTs, Mg and lipids panel ( [facility]) - Continue lab surveillance while on [...] Disease Center Section of Gastroenterology and Hepatology [address] [address] documented in this encounter Plan of Treatment Upcoming Encounters Date Type Department Care Team (Late st Contact Info) Description 07/02/2024 2:00 PM EDT Appointment Non-[place] [address] Luis Alfredo Velazquez MD [facility] [place] [address] 07/02/2024 4:00 PM EDT Office Visit Cardiology at [address] [address] Mars Green PA [facility] [place] [address] 07/02/2024 4:40 PM EDT Office Visit Cardiology at [place] [phone] Luis Alfredo Velazquez MD [facility] [place] [address] 07/18/2024 9:00 AM EST Hospital Encounter Non-[place] [phone] Arrived 07/27/2024 3:30 PM EST Office [place] [address] Gabe Fong MD [facility] [place] [address] 12/07/2024 2:30 PM EDT TH Visit (TeleHealth) Gastroenterology at [address] Rosemarie Morrow, SKIP [facility] [place] [address] Scheduled Orders Name Type Priority Associated Diagnoses Orde r Schedule Magnesium Lab Routine Ulcerative pancolitis with complication Expected: 11/11/2023, Expires: 05/12/2024 Lipid Panel (Reflex Direct LDL) Lab Routine Ulcerative pancolitis with complication Expected: 11/11/2023, Expires: 05/12/2024 documented as of this encounter Visit Diagnoses Diagnosis Ulcerative pancolitis with complication documented in this encounter Care Teams Engraving Plate Maker Relationship Specialty Start Date End Date Marcio Devlin DO [address] [place] [address] PCP - General Family Medicine 11/11/17 documented as of this encounter
--- OUTSIDE RECORDS SUMMARY | 2024-06-14 15:26 | XMS_ITS | Encounter Summary ---
Author Organization [facility] [place] [address] Care Team Providers Care Data Center Engineer Name Role Phone Marcio Devlin DO Primary Care Provider [phone] Encounter Details Date Type Department Care Team (Latest Contact Info) Description 11/21/2023 Travel Social History Tobacco Use Types Packs/Day Years Used Date Smoking Tobacco: Never Smokeless Tobacco: Never Alcohol Use Standard Drinks/Week Comments Yes 0 (1 standard drink = 0.6 oz pure alcohol) once every couple of months or less [facility] Utilities Answer Date Recorded In the past [...] 2:00 PM EDT Appointment Non-Invasive [place] [phone] Luis Alfredo Velazquez MD [facility] [place] [address] 07/02/2024 4:00 PM EDT Office Visit Cardiology at [address] [address] Mars Green PA [facility] [place] [address] 07/02/2024 4:40 PM EDT Office Visit Cardiology at [address] [address] Luis Alfredo Velazquez MD [facility] [place] [address] 07/18/2024 9:00 AM EST Hospital Encounter Non-Invasive Cardiology Lab [place] [phone] Arrived 07/27/2024 3:30 PM EST Office Visit Rheumatology at [place] [phone] Gabe Fong MD [facility] [place] [address] 12/07/2024 2:30 PM EDT TH Visit (TeleHealth) Gastroenterology at [place] [phone] Rosemarie Morrow APRN [facility] [place] [address] documented as of this encounter Visit Diagnoses Not on filedocumented in this encounter Care Teams Data Center Engineer Relationship Specialty Start Date End Date Marcio Devlin DO [address] [place] [address] PCP - General Family Medicine 11/11/17 documented as of this encounter
--- OUTSIDE RECORDS SUMMARY | 2024-06-14 15:26 | XMS_ITS | Encounter Summary ---
Author Organization Formerly [facility] [place] [address] Care Team Providers Care Principal Solutions Architect Name Role Phone Marcio Devlin DO Primary Care Provider [phone] Encounter Details Date Type Department Care Team (Late st Contact Info) Description 12/04/2023 Telephone Cardiology at [address] [address] Rafaela Dillon Social History Tobacco Use Types Packs/Day Years Used Date Smoking Tobacco: Never Smokeless Tobacco: Never Alcohol Use Standard Drinks/Week Comments Yes 0 (1 standard drink = 0.6 oz pure alcohol) once every couple of months or less [facility] Utilities Answer Date Recorded In the past 12 months has [facility] [employer], gas, oil, or water [employer] threatened to shut off services in your [...] EDT Appointment Non-[place] [address] Luis Alfredo Velazquez MD [facility] [place] [address] 07/02/2024 4:00 PM EDT Office Visit Cardiology at [place] [address] Mars Green PA [facility] [place] [address] 07/02/2024 4:40 PM EDT Office Visit Cardiology at [place] [address] Luis Alfredo Velazquez MD [facility] [place] [address] 07/18/2024 9:00 AM EST Hospital Encounter Non-Invasive Cardiology Lab [place] [address] Arrived 07/27/2024 3:30 PM EST Office Visit Rheumatology at [place] [address] Gabe Fong MD [facility] [place] [address] 12/07/2024 2:30 PM EDT TH Visit (TeleHealth) Gastroenterology at [place] [address] Rosemarie Morrow APRN [facility] [place] [address] documented as of this encounter Visit Diagnoses Not on filedocumented in this encounter Care Teams Principal Solutions Architect Relationship Specialty Start Date End Date Marcio Devlin DO [address] [place] [address] PCP - General Family Medicine 11/11/17 documented as of this encounter
--- OUTSIDE RECORDS SUMMARY | 2024-06-14 15:26 | XMS_ITS | Encounter Summary ---
Author Organization [facility] [place] [address] Care Team Providers Care Skin Therapist Name Role Phone Marcio Devlin DO Primary Care Provider [phone] Reason for Referral * Diagnostic Test (Routine) - Closed Specialty Diagnoses / Procedures Referred By Missy escalera Referred To Contact Radiology Diagnoses Complete heart block Procedures MRI Cardiac Morphology Function wwo Contrast Leonidas Velazquez MD [facility] [place] [address] [facility] [place] [address] Referral ID Status Reason Start Date Expiration Date V isits Requested Visits Authorized [id number] Closed Specialty Service Requested 11/26/2023 05/28/2025 1 1 * Diagnostic Test (Routine) - New Request Specialty Diagnoses / Procedures Referred By Missy escalera Referred To Contact Cardiology Diagnoses Complete heart block Procedures Echocardiogram Transthoracic Leonidas Velazquez MD [facility] [place] [address] [facility] [place] [address] Referral ID Status Reason Start Date Expiration Date Visits Requested Visits Authorized [id number] New Request Specialty Service Requested 11/26/2023 11/25/2024 1 1 Encounter Details Date Type Department Care Team (Late st Contact Info) Description 11/26/2023 4:20 PM EDT Office Visit Cardiology at [address] [address] Leonidas Velazquez MD [facility] [place] [address] Complete heart block; Pacemaker; Other hyperlipidemia; Primary hypertension Social History Tobacco Use Types Packs/Day Years Used Date Smoking Tobacco: Never Smokeless Tobacco: Never Alcohol Use Standard Drinks/Week Comments Yes 0 (1 standard drink = 0.6 oz pure alcohol) once every couple of months or less [facility] Utilities Answer Date Recorded In the past 12 months has th e [employer], gas, oil, or water [employer] threatened to shut off services in your [...] the original note were not included. Formerly [facility] Dr. Regan, [place] [address] Cardiology Clinic Note Patient Name: Kim Funes : 1960 Visit Context: 63 y.o. female w/ PMH of ulcerative colitis, ankylosing spondylitis, pre diabetes, HTN and HLD who presented to [facility] for symptomatic bradycardia in the [...] 1 of 210 had complete heart block ([email or web address]). Having said she will still have some [...] on her lipid panel. Pacemaker Overview Note: Hog Cooler Model # Serial # Generator [employer] [id number] Atrial Lead [employer] [id number] Ventricular Lead [employer] [id number] Implanted on 10/21/23 for high grade AV [...] Colonoscopy 09/19/08 (Dr. Shady Luz at [facility]) for surveillance for dysplasia. Areas of skip [...] iritis Escalated to weekly Humira 11/2019. ADA ([place]) from 6 q 2wk to 12.7 qwk, as well as BID SSZ Colonoscopy Oct 2019: normal rectum, mod-severe inflammation and narrowing from 6-25 cm from the anus, normal remainder of colon. Path: mild active chronic colitis in ac/tc/dc/sc, severe active colitis with ulceration in proximal rectum Colonoscopy December 2020 - severe involvement of L colon, oeka-nv-ncmouppw involvement of transverse and R colon. Worse compared to last exam. SSA at hepatic flexure Adalimumab level ([place]) was 12.7 Switched to Stelara ( 03/21/21, first infusion dose) d/t Lost of response to Humira. Stopped Uceris and sulfasalazine in January 2021. 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 She lives with her son and grandson. [...] of the staff and students at the [employer] had respiratory and gastrointestinal illnesses. 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 [employer] - Activity level: no trouble going up and down basement stairs - Tobacco: none - EtOH: very rare - Other: no MJ Family Hx: - Mother: at 67 of hep C, mild heart attack - Father: at 72, lung cancer - Sibilings: sister with AK at age 64 - Children: daughter without [...] mg, Oral, DAILY SUMAtriptan (IMITREX) 20 mg/actuation [place], Non-Aerosol 1 spray, PRN topiramate 50 mg [...] studies Leonidas Velazquez MD, MS, FACC Attending Institutional Asset Manager [facility] Tank Operator [facility] documented in this encounter [...] one survey of ankylosing spondylitis patient's 1 210 had complete heart block ([email or web address]). Having said she will still have some [...] 2:00 PM EDT Appointment Non-[place] [phone] Leonidas Velazquez MD [facility] [place] [address] 07/02/2024 4:00 PM EDT Office Visit Cardiology at [address] [phone] Mars Green PA [facility] [place] [address] 07/02/2024 4:40 PM EDT Office Visit Cardiology at [address] [phone] Leonidas Velazquez MD [facility] [place] [address] 07/18/2024 9:00 AM EST Hospital Encounter Non-Invasive [place] [phone] Arrived 07/27/2024 3:30 PM EST Office [place] [address] Gabe Fong MD [facility] [place] [address] 12/07/2024 2:30 PM EDT TH Visit (TeleHealth) Gastroenterology at [place] [phone] Rosemarie Morrow, SKIP [facility] [place] [address] Scheduled Orders Name Type Priority Associated Diagnoses Order Schedule Echocardiogram Transthoracic Echocardiography Routine Complete heart block Expected: 04/27/2024, Expires: 11/25/2024 documented as of this encounter Results * MRI Cardiac Morphology Function wwo Contrast (04/29/2024 11:51 AM EDT) WORKSTATION ID [id number] [facility] Anatomical Region Laterality Modality Magnetic Resonan ce [...] who have questions please contact the health senior care assistant that requested your imaging first. ? Narrative [...] patients who have questions please contactthe health senior care assistant that requested your imaging first. Electronically signed by: Shalonda Mccain MD, [facility] ([phone]), at 05/03/2024 10:01 PM Leonidas TANG MRI ORDERAB LES documented in this encounter Visit Diagnoses Diagnosis Complete heart block Atrioventricular block, complete Pacemaker Cardiac pacemaker in situ Other hyperlipidemia Primary hypertension Unspecified essential hypertension Complete heart block Atrioventricular block, complete documented in this encounter Care Teams Skin Therapist Relationship Specialty Start Date End Date Marcio Devlin DO [address] [place] [address] PCP - General Family Medicine 11/11/17 documented as of this encounter
--- OUTSIDE RECORDS SUMMARY | 2024-06-14 15:26 | XMS_ITS | Encounter Summary ---
Author Organization [facility] [place] [address] Care Team Providers Care Digital Media Analyst Name Role Phone Marcio Devlin DO Primary Care Provider [phone] Encounter Details Date Type Department Care Team [...] 2:00 PM EDT Appointment Non-[place] [phone] Luis Alfredo Velazquez MD [facility] [place] [address] 07/02/2024 4:00 PM EDT Office Visit Cardiology at [address] [address] [place] Green [place] [facility] [place] [place] [address] 07/02/2024 4:40 PM EDT Office Visit Cardiology at [address] [address] Luis Alfredo Velazquez MD [facility] [place] [address] 07/18/2024 9:00 AM EST Hospital Encounter Non-Invasive Cardiology Lab [place] [phone] Arrived 07/27/2024 3:30 PM EST Office Visit Rheumatology at [place] [phone] Gabe Fong MD [facility] [place] [address] 12/07/2024 2:30 PM EDT TH Visit (TeleHealth) Gastroenterology at [place] [phone] Rosemarie Morrow APRN [facility] [place] [address] documented as of this encounter Visit Diagnoses Not on filedocumented in this encounter Care Teams Digital Media Analyst Relationship Specialty Start Date End Date Marcio Devlin DO [address] [place] [address] PCP - General Family Medicine 11/11/17 documented as of this encounter
--- OUTSIDE RECORDS SUMMARY | 2024-06-14 15:26 | XMS_ITS | Encounter Summary ---
Author Organization [place] [address] Care Team Providers Care Shoemaking Finisher Name Role Phone Marcio Devlin DO Primary Care Provider [phone] Encounter Details Date Type Department Care Team (Late st Contact Info) Description 11/11/2023 Telephone Cardiology at [address] [address] Clau Romero RN Social History Tobacco Use Types Packs/Day Years Used Date Smoking Tobacco: Never Smokeless Tobacco: Never Alcohol Use Standard Drinks/Week Comments Yes 0 (1 standard drink = 0.6 oz pure alcohol) once every couple of months or less [facility] Utilities Answer Date Recorded In the past 12 months has [facility] [address], gas, oil, or water [employer] threatened to shut off services in your [...] has been scanned into Media, by [employer] [facility] Clau Romero (Jodie) RN, BSN Cardiology Ambulatory Clinic documented in this encounter Plan of Treatment Upcoming Encounters Date Type Department Care Team (Late st Contact Info) Description 07/02/2024 2:00 PM EDT Appointment Non-[place] [address] Luis Alfredo Velazquez MD [facility] [place] [address] 07/02/2024 4:00 PM EDT Office Visit Cardiology at [place] [phone] Mars Green PA [facility] [place] [address] 07/02/2024 4:40 PM EDT Office Visit Cardiology at [place] [phone] Luis Alfredo Velazquez MD [facility] [place] [address] 07/18/2024 9:00 AM EST Hospital Encounter Non-Invasive Cardiology Lab [address] Arrived 07/27/2024 3:30 PM EST Office Visit [place] [address] Gabe Fong MD [facility] [place] [address] 12/07/2024 2:30 PM EDT TH Visit (TeleHealth) [place] [phone] Rosemarie Morrow, SKIP [facility] [place] [address] documented as of this encounter Visit Diagnoses Not on filedocumented in this encounter Care Teams Shoemaking Finisher Relationship Specialty Start Date End Date Marcio Devlin DO [address] [place] [address] PCP - General Family Medicine 11/11/17 documented as of this encounter
--- OUTSIDE RECORDS SUMMARY | 2024-06-14 15:26 | XMS_ITS | Encounter Summary ---
Author Organization [facility] Address [facility] [place] [address] Care Team Providers Care Mine Engineering Manager Name Role Phone Marcio Devlin DO Primary Care Provider [phone] Encounter Details Date Type Department Care Team (Latest Contact Info) Description 12/04/2023 4:21 PM EDT - 12/04/2023 11:59 PM EDT Hospital Encounter XRay at [address] [place] [address] Lizzette Lemos MD [facility] [place] [address] Pacemaker Discharge Disposition: Home Social History Tobacco Use Types Packs/Day Years Used Date Smoking Tobacco: Never Smokeless Tobacco: Never Alcohol Use Standard Drinks/Week Comments Yes 0 (1 standard drink = 0.6 oz pure alcohol) once every couple of months or less [facility] Utilities Answer Date Recorded In the [...] by mouth daily. SUMAtriptan (IMITREX) 20 mg/actuation [place], Non-Aerosol 1 spray as needed. 11/03/2017 met[employer]MIN [...] 2:00 PM EDT Appointment Non[place] [address] Luis Alfredo Velazquez MD [facility] [place] [address] 07/02/2024 4:00 PM EDT Office Visit Cardiology at [address] [phone] Mars Green PA [facility] [place] [address] 07/02/2024 4:40 PM EDT Office Visit Cardiology at [address] [phone] Luis Alfredo Velazquez MD [facility] [place] [address] 07/18/2024 9:00 AM EST Hospital Encounter Non-[place] [address] Arrived 07/27/2024 3:30 PM EST Office [place] [address] Gabe Fong MD [facility] [place] [address] 12/07/2024 2:30 PM EDT TH Visit (TeleHealth) [place] [address] Rosemarie Morrow APRN [facility] [place] [address] documented as of this encounter Procedures Procedure [...] who have questions please contact the health restorative care technician that requested your imaging first. ? Electronically signed by: Shalonda Mccain MD, [facility] ([phone]), at 12/05/2023 8:45 AM Narrative 12/05/2023 8:45 [...] patients who have questions please contactthe health restorative care technician that requested your imaging first. Electronically signed by: Shalonda Mccain MD, [facility] ([phone]), at 12/05/2023 8:45 AM Lizzette Lemos MD IMG DX ORDERABLES documented in this encounter Visit Diagnoses Diagnosis Pacemaker Cardiac pacemaker in situ documented in this encounter Care Teams Mine Engineering Manager Relationship Specialty Start Date End Date Marcio Devlin DO [address] [place] [address] PCP - General Family Medicine 11/11/17 documented as of this encounter
--- OUTSIDE RECORDS SUMMARY | 2024-06-14 15:26 | XMS_ITS | Encounter Summary ---
Author Organization [facility], 1928–[address] [place] [address] Care Team Providers Care Payloader Operator Name Role Phone Marcio Devlin DO Primary Care Provider [phone] Encounter Details Date Type Department Care Team (Latest Contact Info) Description 04/22/2024 Travel Social History Tobacco Use Types Packs/Day Years Used Date Smoking Tobacco: Never Smokeless Tobacco: Never Alcohol Use Standard Drinks/Week Comments Yes 0 (1 standard drink = 0.6 oz pure alcohol) once every couple of months or less [facility] Utilities Answer Date Recorded In [...] in a longterm (including now)? No 10/21/2023 IPV Inpatient Questions [...] 2:00 PM EDT Appointment [place] [phone] Luis Alfredo Velazquez MD [facility] [place] [address] 07/02/2024 4:00 PM EDT Office Visit Cardiology at [address] [address] Mars Green PA [facility] [place] [address] 07/02/2024 4:40 PM EDT Office Visit Cardiology at [address] [address] Luis Alfredo Velazquez MD [facility] [place] [address] 07/18/2024 9:00 AM EST Hospital Encounter Non-Invasive Cardiology Lab [place] [phone] Arrived 07/27/2024 3:30 PM EST Office Visit Rheumatology at [place] [phone] Gabe Fong MD [facility] [place] [address] 12/07/2024 2:30 PM EDT TH Visit (TeleHealth) Gastroenterology at [place] [phone] Rosemarie Morrow APRN [facility] [place] [address] documented as of this encounter Visit Diagnoses Not on filedocumented in this encounter Care Teams Payloader Operator Relationship Specialty Start Date End Date Marcio Devlin DO [address] [place] [address] PCP - General Family Medicine 11/11/17 documented as of this encounter
--- OUTSIDE RECORDS SUMMARY | 2024-06-14 15:26 | XMS_ITS | Encounter Summary ---
Author Organization [facility] [place] [address] Care Team Providers Care Geospatial Scientist Name Role Phone Marcio Devlin DO Primary Care Provider [phone] Reason for Visit * Reason Comments Medication Refill Encounter Details Date Type Department Care Team (Late st Contact Info) Description 10/27/2023 [place] [address] Gabe Fong MD [facility] [place] [address] Social History Tobacco Use Types Packs/Day Years Used Date Smoking Tobacco: Never Smokeless Tobacco: Never Alcohol Use Standard Drinks/Week Comments Yes 0 (1 standard drink = 0.6 oz pure alcohol) once every couple of months or less [facility] Utilities Answer Date Recorded In the past 12 months has [employer], gas, oil, or water company threatened [...] 2:00 PM EDT Appointment Non-[place] [phone] Luis Alfredo Velazquez MD [facility] [place] [address] 07/02/2024 4:00 PM EDT Office Visit Cardiology at [address] [phone] Mars Green PA [facility] [place] [address] 07/02/2024 4:40 PM EDT Office [place] [address] Luis Alfredo Velazquez MD [facility] [place] [address] 07/18/2024 9:00 AM EST Hospital Encounter [place] [address] Arrived 07/27/2024 3:30 PM EST Office [place] [address] Gabe Fong MD [facility] [place] [address] 12/07/2024 2:30 PM EDT TH Visit (TeleHealth) Gastroenterology at [place] [phone] Rosemarie Morrow, SKIP [facility] [place] [address] documented as of this encounter Visit Diagnoses Not on filedocumented in this encounter Care Teams Geospatial Scientist Relationship Specialty Start Date End Date Marcio Devlin DO [address] [place] [address] PCP - General Family Medicine 11/11/17 documented as of this encounter
--- OUTSIDE RECORDS SUMMARY | 2024-06-14 15:26 | XMS_ITS | Encounter Summary ---
Author Organization [place] [address] Care Team Providers Care Drum Stock Clerk Name Role Phone Marcio Devlin DO Primary Care Provider [phone] Reason for Visit * Reason Comments Medication Refill Encounter Details Date Type Department Care Team (Late st Contact Info) Description 02/03/2024 Refill [place] [address] Lola Haley, [facility] [place] [address] Social History Tobacco Use Types Packs/Day Years Used Date Smoking Tobacco: Never Smokeless Tobacco: Never Alcohol Use Standard Drinks/Week Comments Yes 0 (1 standard drink = 0.6 oz pure alcohol) once every couple of months or less [facility] Utilities Answer Date Recorded In the past 12 months has [employer], gas, oil, or water company threatened [...] 2:00 PM EDT Appointment [place] [phone] Luis Alfredo Velazquez MD [facility] [place] [address] 07/02/2024 4:00 PM EDT Office Visit Cardiology at [address] [phone] Mars Green PA [facility] [place] [address] 07/02/2024 4:40 PM EDT [place] [address] Luis Alfredo Velazquez MD [facility] [place] [address] 07/18/2024 9:00 AM EST Hospital Encounter Non-[place] [address] Arrived 07/27/2024 3:30 PM EST [place] [address] Gabe Fong MD [facility] [place] [address] 12/07/2024 2:30 PM EDT TH Visit (TeleHealth) Gastroenterology at [place] [phone] Rosemarie Morrow, SKIP [facility] [place] [address] documented as of this encounter Visit Diagnoses Not on filedocumented in this encounter Care Teams Drum Stock Clerk Relationship Specialty Start Date End Date Marcio Devlin DO [address] [place] [address] PCP - General Family Medicine 11/11/17 documented as of this encounter
--- OUTSIDE RECORDS SUMMARY | 2024-06-14 15:26 | XMS_ITS | Encounter Summary ---
Author Organization [facility] [place] [address] Care Team Providers Care Nuclear Medicine Supervisor Name Role Phone Marcio Devlin DO Primary Care Provider [phone] Reason for Visit * Diagnostic Test (Routine) - Closed Specialty Diagnoses / Procedures Referred By Missy escalera Referred To Contact Radiology Diagnoses Complete heart block Procedures MRI Cardiac Morphology Function wwo Contrast Luis Alfredo Velazquez MD [facility] [place] [address] [facility] [place] [address] Referral ID Status Reason Start Date Expiration Date V isits Requested Visits Authorized [id number] Closed Specialty Service Requested 11/26/2023 05/28/2025 1 1 Encounter Details Date Type Department Care Team (Latest Contact Info) Description 04/29/2024 9:05 AM EDT - 04/29/2024 11:59 PM EDT Hospital [place] [address] Luis Alfredo Velazquez MD [facility] [place] [address] Discharge Disposition: Home Social History Tobacco Use Types Packs/Day Years Used Date Smoking Tobacco: Never Smokeless Tobacco: Never Alcohol Use Standard Drinks/Week Comments Yes 0 (1 standard drink = 0.6 oz pure alcohol) once every couple of months or less [facility] Utilities Answer Date Recorded In [...] Pulse 74 04/29/2024 11:20 AM EDT Temperature - - Respiratory Rate 16 04/29/2024 11:20 AM EDT Oxygen Saturation 100% 04/29/2024 11:20 AM EDT Inhaled Oxygen Concentration - - Weight - - Height - - Body Mass Index - - documented in this encounter Medications at Time [...] by mouth daily. SUMAtriptan (IMITREX) 20 mg/actuation [place], Non-Aerosol 1 spray as needed. 11/03/2017 metFORMIN [...] 02/03/2024 05/26/2024 documented as of this encounter Progress Notes * Raj El RN - 04/26/2024 8:14 AM EDT MRI PRE-SEDATION ASSESSMENT NOTE NAME: Kim Funes AGE: 64 y.o. : [address] [place] [id number] Female [phone] (home) [phone] (work) Telephone Information: Marcio Devlin, No primary care provider on file. Allergies Allergen Reactions Ibuprofen chest pains, Patient reported Celebrex [Celecoxib] Rash Lodine [Etodolac] Itching Amoxicillin-Pot Clavulanate Nausea And Vomiting Nausea/Vomiting, patient reported Cephalexin Nausea And Vomiting Nausea/Vomiting, Patient reported Doxycycline Nausea And Vomiting Nausea/Vomiting, Patient reported Date/Time of call: April 26, 2024/8:08 AM/ SCHEDULED SCAN: MRI CARDIAC MORPHOLOGY FUNCTION WWO CONTRAST [[id number]] HEIGHT: WEIGHT: Have you had a PREVIOUS MRI SCAN? Yes/No Are you claustrophobic or anxious in the scanner? Yes/No CAN YOU LAY FLAT? Yes/No Do you have trouble breathing when lying flat? Yes/No DO YOU HAVE ANY INVOLUNTARY MOVEMENTS? Yes/No (explain) DO YOU TAKE PAIN MEDICATION ON A DAILY BASIS? Yes/No (explain) PLAN: Ativan (unless MRI previously tolerated with Valium) You must have a ambulance driver paramedic present when you check in. This patient has been informed that they require a ambulance driver paramedic to drive them home after this procedure. In the absence of a ambulance driver paramedic, IR will not be able tosedate for your scan. Pt verbalized understanding of these instructions during the pre-procedure education via phone. Yes [place] of ambulance driver paramedic: Phone number: PRIOR SCAN DATE/S SEDATION TYPE SUCCESSFUL Revised 03/11/2023 documented in this encounter Plan of Treatment Upcoming Encounters Date Type Department Care Team (Late st Contact Info) Description 07/02/2024 2:00 PM EDT Appointment Non-Invasive Cardiology Lab [place] [phone] Luis Alfredo Velazquez MD [facility] [place] [address] 07/02/2024 4:00 PM EDT Office Visit Cardiology at [place] [phone] Mars Green PA [facility] [place] [address] 07/02/2024 4:40 PM EDT Office Visit Cardiology at [place] [phone] Luis Alfredo Velazquez MD [facility] [place] [address] 07/18/2024 9:00 AM EST Hospital Encounter Non-Invasive Cardiology Lab [place] [phone] Arrived 07/27/2024 3:30 PM EST Office Visit Rheumatology at [place] [phone] Gabe Fong MD [facility] [place] [address] 12/07/2024 2:30 PM EDT TH Visit (TeleHealth) Gastroenterology at [place] [phone] Rosemarie Morrow, SKIP [facility] [place] [address] documented as of this encounter Procedures Procedure Name Priority Date/Time Associated Diagnosis Comments MRI CARDIAC MORPHOLOGY FUNCTION WWO CONTRAST Routine 04/29/2024 11:51 AM EDT Complete heart block documented in this encounter Results * MRI Cardiac Morphology Function wwo Contrast (04/29/2024 11:51 AM EDT) WORKSTATION ID [id number] [facility] Anatomical Region Laterality Modality Magnetic Resonan ce [...] who have questions please contact the health healthcare architect that requested your imaging first. ? Narrative [...] patients who have questions please contactthe health healthcare architect that requested your imaging first. Electronically signed by: Shalonda Mccain MD, [facility] ([phone]), at 05/03/2024 10:01 PM Luis Alfredo Velazquez MD IMG MRI ORDERAB LES documented in this encounter Visit Diagnoses Not on filedocumented in this encounter Care Teams Nuclear Medicine Supervisor Relationship Specialty Start Date End Date Marcio Devlin DO [address] [place] [address] PCP - General Family Medicine 11/11/17 documented as of this encounter
--- OUTSIDE RECORDS SUMMARY | 2024-06-14 15:27 | XMS_ITS | Encounter Summary ---
Author Organization [facility] [place] [address] Care Team Providers Care Paediatric Thoracic Physician Name Role Phone Marcio Devlin DO Primary Care Provider [phone] Reason for Visit * Reason Comments Specialty Pharmacy Review Upadacitinib ( rinvoq) 15mg tablets Encounter Details Date Type Department Care Team (Late st Contact Info) Description 09/03/2023 Specialty [place] [address] Francisca Olivas, [facility] Social History Tobacco Use Types Packs/Day [...] review their eligibility to fill at [facility]. Per patient's medication list they are prescribed Rinvoq and the patient's eligibility to fill at [facility] is pending further review at this time. documented in this encounter Plan of Treatment Upcoming Encounters Date Type Department Care Team (Late st Contact Info) Description 07/02/2024 2:00 PM EDT Appointment Non-[place] [address] Luis Alfredo Velazquez MD [facility] [place] [place] [address] 07/02/2024 4:00 PM EDT Office Visit Cardiology at [address] [phone] Mars Green PA [facility] [place] [address] 07/02/2024 4:40 PM EDT [place] [address] Luis Alfredo Velazquez MD [facility] [place] [address] 07/18/2024 9:00 AM EST Hospital Encounter Non-[place] [address] Arrived 07/27/2024 3:30 PM EST Office [place] [address] Gabe Fong MD [facility] [place] [address] 12/07/2024 2:30 PM EDT TH Visit (TeleHealth) Gastroenterology at [address] Rosemarie Morrow APRN [facility] [place] [address] documented as of this encounter Visit Diagnoses Not on filedocumented in this encounter Care Teams Paediatric Thoracic Physician Relationship Specialty Start Date End Date Marcio Devlin DO [address] [place] [address] PCP - General Family Medicine 11/11/17 documented as of this encounter
--- OUTSIDE RECORDS SUMMARY | 2024-06-14 15:27 | XMS_ITS | Encounter Summary ---
Author Organization [facility] [place] [address] Care Team Providers Care Loom Doffer Name Role Phone Marcio Devlin DO Primary Care Provider Encounter Details Date Type Department Care Team (Late st Contact Info) Description 10/20/2023 [place] [phone] Nba Rincon MD [facility] [place] [address] Social History Tobacco Use Types Packs/Day Years Used Date Smoking Tobacco: Never Smokeless Tobacco: Never Alcohol Use Standard Drinks/Week Comments Yes 0 (1 standard drink = 0.6 oz pure alcohol) once every couple of months or less [facility] Utilities Answer Date Recorded In the past 12 months has [employer], gas, oil, or water [employer] threatened to shut off services in your [...] from the original note were not included. [facility] [place] [address] 10/20/2023 Kim Funes Initial Contact Date: 10/20/2023 Initial Contact Time: 6:16 AM Referring Provider: Ceasr Albert DO Patient Location: [facility] Past Medical History: UC associated [...] 2:00 PM EDT Appointment Non-[place] [address] Luis Alfredo Velazquez MD [facility] [place] [address] 07/02/2024 4:00 PM EDT Office Visit Cardiology at [place] [phone] Mars Green PA [facility] [place] [address] 07/02/2024 4:40 PM EDT Office [place] [address] Luis Alfredo Velazquez MD [facility] [place] [address] 07/18/2024 9:00 AM EST Hospital Encounter Non-[place] [address] Arrived 07/27/2024 3:30 PM EST Office Visit Rheumatology at [address] Gabe Fong MD [facility] [place] [address] 12/07/2024 2:30 PM EDT TH Visit (TeleHealth) Gastroenterology at [place] [phone] Rosemarie Morrow APRN [facility] [address] documented as of this encounter Visit Diagnoses Not on filedocumented in this encounter Care Teams Loom Doffer Relationship Specialty Start Date End Date Marcio Devlin DO [address] [place] [address] PCP - General Family Medicine 11/11/17 documented as of this encounter
--- OUTSIDE RECORDS SUMMARY | 2024-06-14 15:27 | XMS_ITS | Encounter Summary ---
Author Organization [facility] Address [facility] [place] [address] Care Team Providers Care Insulation Worker Apprentice Name Role Phone Marcio Devlin DO Primary Care Provider [phone] Encounter Details Date Type Department Care Team (Late st Contact Info) Description 09/18/2023 Orders Only [place] [address] Dajuan Rachel MD [facility] [place] [address] Ulcerative pancolitis with complication Social History Tobacco [...] 2:00 PM EDT Appointment Non-[place] [phone] Luis Alfredo Velazquez MD [facility] [place] [address] 07/02/2024 4:00 PM EDT Office Visit Cardiology at [address] [address] Mars Green PA [facility] [address] [place] [place], [place] [address] 07/02/2024 4:40 PM EDT Office Visit Cardiology at [address] [phone] Luis Alfredo Velazquez MD [facility] [place] [address] 07/18/2024 9:00 AM EST Hospital Encounter Non-Invasive [place] [address] Arrived 07/27/2024 3:30 PM EST Office Visit [place] [address] Gabe Fong MD [facility] [place] [address] 12/07/2024 2:30 PM EDT TH Visit (TeleHealth) [place] [address] Rosemarie Morrow, SKIP [facility] [place] [address] Scheduled Orders Name Type Priority Associated Diagnoses [...] for 9 Occurrences starting 09/18/2023 until 09/18/2024 documented as of this encounter Visit Diagnoses Diagnosis Ulcerative pancolitis with complication documented in this encounter Care Teams Insulation Worker Apprentice Relationship Specialty Start Date End Date Marcio Devlin DO [address] [place] [address] PCP - General Family Medicine 11/11/17 documented as of this encounter
--- OUTSIDE RECORDS SUMMARY | 2024-06-14 15:27 | XMS_ITS | Encounter Summary ---
Author Organization [facility] [place] [address] Care Team Providers Care Anodiser Name Role Phone Marcio Devlin DO Primary Care Provider [phone] Encounter Details Date Type Department Care Team [...] 2:00 PM EDT Appointment Non-[place]vasive [place] [address] Luis Alfredo Velazquez MD [facility] [place] [address] 07/02/2024 4:00 PM EDT Office Visit Cardiology at [address] [phone] Mars Green PA [facility] [place] [address] 07/02/2024 4:40 PM EDT Office Visit Cardiology at [address] [phone] Luis Alfredo Velazquez MD [facility] [place] [address] 07/18/2024 9:00 AM EST Hospital Encounter Non-Invasive [place] [address] Arrived 07/27/2024 3:30 PM EST Office [place] [address] Gabe Fong MD [facility] [place] [address] 12/07/2024 2:30 PM EDT TH Visit (TeleHealth) [place] [address] Rosemarie Morrow APRN [facility] [place] [address] documented as of this encounter Visit Diagnoses Not on filedocumented in this encounter Care Teams Anodiser Relationship Specialty Start Date End Date Marcio Devlin DO [address] [place] [address] PCP - General Family Medicine 11/11/17 documented as of this encounter
--- OUTSIDE RECORDS SUMMARY | 2024-06-14 15:27 | XMS_ITS | Encounter Summary ---
Author Organization [facility] [place] [address] Care Team Providers Care Database Development Project Manager Name Role Phone Marcio Devlin DO Primary Care Provider [phone] Encounter Details Date Type Department Care Team (Latest Contact Info) Description 07/14/2023 External Results [facility] Information Services [address] [place] [address] Provider, His Will MD None Ankylosing spondylitis [...] 2:00 PM EDT Appointment Non-[place] [address] Luis Alfredo Velazquez MD [facility] [place] [address] 07/02/2024 4:00 PM EDT Office Visit Cardiology at [address] [phone] [place] [facility] [place] [address] 07/02/2024 4:40 PM EDT Office Visit Cardiology at [address] [phone] Luis Alfredo Velazquez MD [facility] [address] [place] [place], [place] [phone] 07/18/2024 9:00 AM EST Hospital Encounter Non-Invasive [place] [address] Arrived 07/27/2024 3:30 PM EST Office [place] [address] Gabe Fong MD [facility] RHEUMATOLOGY [place], [place] [id number] 12/07/2024 2:30 PM EDT TH Visit (TeleHealth) [place] [address] Rosemarie Morrow APRN [facility] [place] [address] documented as of this encounter [...] External Lab Panel (06/27/2023 2:40 PM EDT) Cholesterol, Total 190 EXTERNAL FACILITY Triglyceride 208(H) EXTERNA L FACILITY HDL Cholesterol 53 [facility] LDL Cholesterol 96 [facility] 06/27/2023 2:40 PM EDT Gabe Fong MD EXTERNAL LAB ORDERAB LES EXTERNAL FACILITY * (ABNORMAL) Hepatic Function Panel (06/27/2023 2:40 PM EDT) Protein, Total 8.2 EXTER NAL FACILITY Albumin 3.6 EXTERNAL FACILITY Bilirubin, Total 0.3 EXT [facility]L [facility]ACILITY Alkaline Phosphatase 135(H) EXTERNAL FACILITY Aspartate Aminotransferase 23 EXTERNAL FACILITY Alanine Aminotransferase 26 EXTERNAL FACILITY Label <0.1 EXTERNAL FACILITY Comment:Bilirubin, Conjugate d Blood 06/27/2023 2:40 PM EDT Gabe Fong MD CHEMISTRY ORDERABLES Performing Organization Address [facility] Co de Phone Number EXTERNAL FACILITY * (ABNORMAL) CRP, acute inflammation (06/27/2023 2:40 PM EDT) C-Reactive Protein 3.10(H) EXTERNAL FACILITY Blood 06/27/2023 2:40 PM EDT Gabe Fong MD CHEMISTRY ORDERABLES Performing Organization Address City/[facility]/ZIP Co de Phone Number EXTERNAL FACILITY * External CBC Labs (06/27/2023 2:40 PM EDT) White Blood Cell 8.65 EXT [facility]RNAL FACILITY Red Blood Cell 4.61 EXTER NAL FACILITY Hemoglobin 13.6 EXTERNAL FACILITY Hematocrit 41.3 EXTERNAL FACILITY Mean Cell Volume 90.0 EXT [facility]AC[facility] Mean Cell Hemoglobin 29.5 EXTERNAL FACILITY Mean Cell Hemoglobin Concentration 32.9 EXTERNAL FACILITY RDW coefficient of variation 13.5 EXTERNAL FACILITY Platelet 229 EXTERNAL FACILITY Mean Platelet Volume 10.6 EXTERNAL FACILITY Neutrophil Absolute (ANC) - Manual 5.46 EXTERNAL FACILITY Lymph Absolute Manual 2.48 EXTERNAL FACILITY Monocyte Absolute Manual 0.60 EXTERNAL FACILITY Eos Absolute Manual 0.05 EXTERNAL FACILITY Baso Absolute Manual 0.03 EXTERNAL FACILITY Neutrophil % Manual 63.2 EXTERNAL FACILITY Lymphocyte Manual 28.7 EX TERNAL FACILITY Monocyte Manual 6.9 [facility] Eosinophil Manual 0.6 EX TERNAL FACILITY Basophil Manual 0.3 [facility] Immature Gran % 0.3 [facility] 06/27/2023 2:40 PM EDT Gabe Fong MD POINT OF CARE TEST O RDERABLES EXTERNAL FACILITY * Tissue transglutaminase, IgA (06/27/2023 2:40 PM EDT) TTG IgA Ab <1.2 EXTERNAL FACILITY Blood 06/27/2023 2:40 PM EDT Gabe Fong MD IMMUNOLOGY ORDERABLE S EXTERNAL FACILITY * Mitochondrial Antibody, M2 (06/27/2023 2:40 PM EDT) Mitochon Ab (JANUARY) <0.1 EXTERNAL FACILITY Blood 06/27/2023 2:40 PM EDT Gabe Fong MD LAB SEND OUT ORDERAB LES EXTERNAL FACILITY * IgA (06/27/2023 2:40 PM EDT) IgA 496 EXTERNAL FACILITY Blood 06/27/2023 2:40 PM EDT Gabe Fong MD CHEMISTRY ORDERABLES EXTERNAL FACILITY * Sedimentation rate (06/27/2023 2:40 PM EDT) Sedimentation Rate Automated 22 EXTERNAL FACILITY Blood 06/27/2023 2:40 PM EDT Gabe Fong MD HEMATOLOGY ORDERABLE S EXTERNAL FACILITY documented in this encounter Visit Diagnoses Diagnosis Ankylosing spondylitis of cervical region Ankylosing spondylitis Ulcerative colitis without complications, unspecified location High risk medication use Encounter for long-term (current) use of other medications Primary osteoarthritis of both hips Primary localized osteoarthrosis, pelvic region and thigh 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 Arthralgia of both hands documented in this encounter Care Teams Database Development Project Manager Relationship Specialty Start Date End Date Marcio Devlin DO [facility] [place] [place] [address] PCP - General Family Medicine 11/11/17 documented as of this encounter
--- OUTSIDE RECORDS SUMMARY | 2024-06-14 15:27 | XMS_ITS | Encounter Summary ---
Author Organization [facility] [place] [address] Care Team Providers Care Numerical Control Machine Operator Name Role Phone Marcio Devlin DO Primary Care Provider [phone] Reason for Visit * Auth/Cert (Routine) Specialty Diagnoses / Procedures Referred By Contac t Referred To Contact Diagnoses Ulcerative (chronic) pancolitis with unspecified complications UC surveillance - Rinvoq started 04/2023. PLEASE BOOK FOR SEP 2023 Procedures PRO COLONOSCOPY, DIAGNOSTIC PRO COLONOSCOPY, BIOPSY PRO COLONOSCOPY, REMV LESN, SNARE PRO ANES, LWR INTESTINE, NOS COLONOSCOPY, DIAGNOSTIC (WRVU 3.26) Dajuan Rachel MD [facility] [place] [address] [facility] Referral ID Status Reason Start Date Expiration Date Visits Re quested Visits Authorized [id number] 1 1 Encounter Details Date Type Department Care Team (Late st Contact Info) Description 09/18/2023 3:00 PM EST - 09/18/2023 4:00 PM EST [place] [address] Dajuan Rachel MD [facility] GASTROENTEROLOGY [place], [place] [id number] COLONOSCOPY FLEXIBLE, WITH BX (WRVU 3.56) Social [...] occurs, please contact your Doctor. Please call [phone] before 8pm Mon-Fri with problems, questions or concerns. If you call after 8pm or on weekends, call the Hospital at [phone] and ask to speak to the Clinical Information Systems Director operations tech and the digital production operator will contact that person for you. When should you call for help? Call [phone] anytime you think you may need emergency [...] any problems. Where can you learn more? [facility] View your After Visit Summary and more online at [email or web address] If you would like to [...] cost to you. Content Version: 12.2 ?? [id number] [employer]. Care instructions adapted under license by [facility]. If you have questions about a medical condition or this instruction, always ask your healthcare professional. [employer] disclaims any warranty or liability for your [...] by mouth daily. SUMAtriptan (IMITREX) 20 mg/actuation [place], Non-Aerosol 1 spray as needed. 11/03/2017 metFORMIN [...] Hepatology Pre-Procedure History and Physical Exam Procedure: [place] Indication: UC restaging and surveillance Patient Active [...] EDT Appointment Non-Invasive Cardiology Lab [place] [phone] Luis Alfredo Velazquez MD [facility] [place] [address] 07/02/2024 4:00 PM EDT Office Visit Cardiology at [place] [phone] [place] [facility] [place] [address] 07/02/2024 4:40 PM EDT Office Visit Cardiology at [place] [phone] Luis Alfredo Velazquez MD [facility] [place] [address] 07/18/2024 9:00 AM EST Hospital Encounter Non-Invasive Cardiology Lab [place] [phone] Arrived 07/27/2024 3:30 PM EST Office [place] [address] Gabe Fong MD [facility] [place] [address] 12/07/2024 2:30 PM EDT TH Visit (TeleHealth) [place] [address] Rosemaire Morrow APRN [facility] [place] [address] documented as of this encounter Procedures Procedure Name Priority Date/Time Associated Diagnosis Comments SPECIMEN TO PATHOLOGY Routine 09/18/2023 4:27 PM EST SPECIMEN TO PATHOLOGY Routine 09/18/2023 4:27 PM EST SPECIMEN TO PATHOLOGY Routine 09/18/2023 4:27 PM EST SPECIMEN TO PATHOLOGY Routine 09/18/2023 4:27 PM EST SURGICAL PATHOLOGY REPORT Routine 09/18/2023 4:13 PM EST COLONOSCOPY Routine 09/18/2023 3:57 PM EST Colonoscopy, Biopsy ([id number]) 09/18/2023 3:47 PM EST Ulcerative pancolitis with complication documented in this encounter Results * Specimen to Pathology (09/18/2023 4:27 PM EST) AP Specimen 09/18/2023 4:27 PM EST 09/18/2023 4:[address] [facility] - 09/18/2023 4:27 PM EST Specimen requisition ordered. ??Separate Pathology report to follow L Jose Rachel MD PATHOLOGY/CYTOLOGY O IRMA Performing Organization Address [facility] Co de Phone Number [facility] [place] [address] * Specimen to Pathology (09/18/2023 4:27 PM EST) AP Specimen 09/18/2023 4:27 PM EST 09/18/2023 4:[address] [facility] - 09/18/2023 4:27 PM EST Specimen requisition ordered. ??Separate Pathology report to follow L Jose Rachel MD PATHOLOGY/CYTOLOGY O IRMA Performing Organization Address [facility] [place] [address] * Specimen to Pathology (09/18/2023 4:27 PM EST) AP Specimen 09/18/2023 4:27 PM EST 09/18/2023 4:[address] [facility] - 09/18/2023 4:27 PM EST Specimen requisition ordered. ??Separate Pathology report to follow L Jose Rachel MD PATHOLOGY/CYTOLOGY O IRMA Performing Organization Address [facility] [place] [address] * Specimen to Pathology (09/18/2023 4:27 PM EST) AP Specimen 09/18/2023 4:27 PM EST 09/18/2023 4:[address] [facility] - 09/18/2023 4:27 PM EST Specimen requisition ordered. ??Separate Pathology report to follow L Jose Rachel MD PATHOLOGY/CYTOLOGY O IRMA Performing Organization Address [facility] [place] [address] * Surgical Pathology Report (09/18/2023 4:13 PM EST) Final Diagnosis [id number] ? Location: 4T; EA11; A The signing [...] - ??Hyperplastic polyp. CR-PX Electronically signed by: ?Justyna HYMAN, Iker Verified: ??09/26/2023 15:23 ??Pathologist Performed at: ??-[facility] Dept. of Pathology, [place] [address] Storage Facility Housekeeper: Dg Brown MD, FCAP, ??CLIA Certificate: [id number] SPECIMEN(S) SUBMITTED A - nondirected right colon [...] labeled D1-D2. ??SM 09/26/2023 3:23 PM EST [facility] GI Biopsy 09/18/2023 4:13 PM EST 09/18/2023 4:13 PM EST GI Biopsy 09/18/2023 4:13 PM EST 09/18/2023 4:13 PM EST GI Biopsy 09/18/2023 4:13 PM EST 09/18/2023 4:13 PM EST GI Biopsy 09/18/2023 4:13 PM EST 09/18/2023 4:13 PM EST L Jose Rachel MD PATHOLOGY/CYTOLOGY O IRMA Performing Organization Address [facility]/State/[facility] Co de Phone Number [facility] [place] [address] [facility] [place] [address] * COLONOSCOPY (09/18/2023 3:57 PM EST) COLONOSCOPY [facility] ___ Procedure Date: 09/18/2023 3:57 PM ? Patient Name: Kim Funes ? Date of : 1960 ? Age: 63 ? Order #: [id number] ? Instrument Name: [id number] ? ___ Procedure: ? Colonoscopy Indications: ? [...] preparation was evaluated ? using the BBPS ([place] Bowel ? Preparation Scale) with scores of: [...] ? - Please have labs checked at [facility]. ? - Await pathology results. [...] Ruffin RN)1559 (Given - Provider: Sugar Ruffin, RN)1605 (Given - Provider: Sugar Ruffin RN) midazolam (pf) (Versed) (1 mg/mL) multi-dose injection (CANCELED) PRN, Starting on Lorna 09/18/23 at 1550, Until Lorna 09/18/23 at 1905, Intra-Operative (Intra-Procedure), Routine 1550 (Given - Provid er: Sugar Ruffin RN)1553 (Given - Provider: Sugar Ruffin RN)1559 (Given - Provider: Sugar Ruffin RN)1605 (Given - Provider: Sugar Ruffin RN) documented in this encounter Care Teams Numerical Control Machine Operator Relationship Specialty Start Date End Date Marcio Devlin DO [address] [facility] [place] [address] PCP - General Family Medicine 11/11/17 documented as of this encounter
--- OUTSIDE RECORDS SUMMARY | 2024-06-14 15:27 | XMS_ITS | Encounter Summary ---
Author Organization [facility] [place] [address] Care Team Providers Care Optometrist Owner Name Role Phone Marcio Devlin DO Primary Care Provider [phone] Encounter Details Date Type Department Care Team (Late st Contact Info) Description 10/20/2023 External [place] [phone] Social History Tobacco Use Types Packs/Day Years Used Date Smoking Tobacco: Never Smokeless Tobacco: Never Alcohol Use Standard Drinks/Week Comments Yes 0 (1 standard drink = 0.6 oz pure alcohol) once every couple of months or less [facility] Utilities Answer Date Recorded In the past 12 months has [facility] [employer], gas, oil, or water [employer] threatened to shut off services in your [...] 2:00 PM EDT Appointment Non-[place] [address] Luis Alfredo Velazquez MD [facility] [place] [address] 07/02/2024 4:00 PM EDT Office Visit Cardiology at [address] [phone] [place] [facility] [address] [place], [place] [phone] 07/02/2024 4:40 PM EDT Office Visit Cardiology at [address] [address] Luis Alfredo Velazquez MD [facility] [place] [address] 07/18/2024 9:00 AM EST Hospital Encounter Non-Invasive Cardiology Lab [place] [phone] Arrived 07/27/2024 3:30 PM EST Office Visit Rheumatology at [place] [phone] Gbae Fong MD [facility] [place] [address] 12/07/2024 2:30 PM EDT TH Visit (TeleHealth) [place] [address] Rosemarie Morrow APRN [facility] [place] [address] documented as of this encounter Procedures Procedure Name Priority Date/Time Associated Diagnosis Comments ECG SCAN Routine 10/20/2023 6:30 AM EST ECG SCAN Routine 10/20/2023 5:52 AM EST documented in this encounter Results * Scan Doc: ECG (10/20/2023 6:30 AM EST) Historical Provider MEDIA MGR SCAN EX T ORDR/RSLT * Scan Doc: ECG (10/20/2023 5:52 AM EST) Historical Provider MEDIA MGR SCAN EX T ORDR/RSLT documented in this encounter Visit Diagnoses Not on filedocumented in this encounter Care Teams Optometrist Owner Relationship Specialty Start Date End Date Marcio Devlin DO [address] [place] [address] PCP - General Family Medicine 11/11/17 documented as of this encounter
--- OUTSIDE RECORDS SUMMARY | 2024-06-14 15:27 | XMS_ITS | Encounter Summary ---
Author Organization [place] [address] Care Team Providers Care Dietary Manager Name Role Phone Marcio Devlin DO Primary Care Provider [phone] Encounter Details Date Type Department Care Team (Latest Contact Info) Description 04/28/2023 4:00 PM EDT TH Visit (TeleHealth) [place] [phone] Dajuan Rachel MD [facility] [place] [address] Ulcerative pancolitis with complication Social History Tobacco [...] 2. Please have routine labs checked at [facility] every 2 weeks for 2 months [...] 2020 - severe involvement of L colon, spcd-sj-aecctomc involvement of transverse and R colon. Worse compared to last exam. SSA at hepatic flexure Adalimumab level (hull) was 12.7 Switched to Stelara ( 03/21/21, first infusion dose) d/t Lost of response to Humira. Stopped Uceris and sulfasalazine in January 2021. [place] 09/2022 - tubular featureless L colon with [...] week. 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 Has had a good summer. Got 6 [...] review of prior records): Reviewed labs from [facility] 03/24/23. BMP notable for creatinine of 1.2. [...] 2. Please have routine labs checked at [facility] every 2 weeks for 2 months after starting Rinvoq. 3. Approximately 8 weeks after starting Rinvoq, please have cholesterol (lipids) checked 4. Plan on repeat colonoscopy in September to make sure that still in remission on Rinvoq 5. Follow-up in the office or via telehealth in 6 months with Delilah Morrow APRN The patient was located in [place] at the time of their visit. TIME SPENT Time spent during encounter with patient including counselin minutes An additional 10 minutes were spent before and after the visit on this same day in preparation for the appointment, ordering tests and/or prescriptions, communicating with referring providers and completing documentation Approximate total time devoted to this single encounter: 20 L. Jose Rachel MD Felt Coverersupervisor litharge Co-Director, [facility] Section of Gastroenterology [place] [address] documented in this encounter Plan of Treatment Upcoming Encounters Date Type Department Care Team (Late st Contact Info) Description 07/02/2024 2:00 PM EDT Appointment Non-Invasive [place] [phone] Luis Alfredo Velazquez MD [facility] [place] [address] 07/02/2024 4:00 PM EDT Office Visit Cardiology at [address] [phone] [place], [place] [facility] [place] [address] 07/02/2024 4:40 PM EDT Office Visit Cardiology at [place] [phone] Luis Alfredo Velazquez MD [facility] [place] [address] 07/18/2024 9:00 AM EST Hospital Encounter Non-Invasive Cardiology Lab [place] [phone] Arrived 07/27/2024 3:30 PM EST Office [place] [address] Gabe Fong MD [facility] [place] [address] 12/07/2024 2:30 PM EDT TH Visit (TeleHealth) Gastroenterology at [place] [phone] Rosemarie Morrow APRN [facility] [place] [address] Scheduled Orders Name Type Priority Associated Diagnoses Orde r Schedule ENDOSCOPY CASE REQUEST: COLONOSCOPY, DIAGNOSTIC (WRVU 3.26) Procedures Routine Ulcerative pancolitis with complication Ordered: 04/28/2023 documented as of this encounter Visit Diagnoses Diagnosis Ulcerative pancolitis with complication documented in this encounter Care Teams Dietary Manager Relationship Specialty Start Date End Date Marcio Devlin DO [address] [place] [address] PCP - General Family Medicine 11/11/17 documented as of this encounter
--- OUTSIDE RECORDS SUMMARY | 2024-06-14 15:27 | XMS_ITS | Encounter Summary ---
Author Organization [facility] [place] [address] Care Team Providers Care Cotton Sampler Name Role Phone aMrcio Devlin DO Primary Care Provider [phone] Reason for Visit * Auth/Cert (Routine) Specialty Diagnoses / Procedures Referred By Contac t Referred To Contact Diagnoses Ulcerative (chronic) pancolitis with unspecified complications UC surveillance - Rinvoq started 04/2023. PLEASE BOOK FOR SEP 2023 Procedures PRO COLONOSCOPY, DIAGNOSTIC PRO COLONOSCOPY, BIOPSY PRO COLONOSCOPY, REMV LESN, SNARE PRO ANES, LWR INTESTINE, NOS COLONOSCOPY, DIAGNOSTIC (WRVU 3.26) Dajuan Rachel MD [facility] [place] [address] [facility] Referral ID Status Reason Start Date Expiration Date Visits Re quested Visits Authorized [id number] 1 1 Encounter Details Date Type Department Care Team (Latest Contact Info) Description 09/18/2023 1:40 PM EST - 09/18/2023 5:05 PM EST Hospital Encounter [place] [address] Dajuan Rachel MD [facility] GASTROENTEROLOGY [place], [place] [id number] Discharge Disposition: Home Social History Tobacco Use [...] occurs, please contact your Doctor. Please call [phone] before 8pm Mon-Fri with problems, questions or concerns. If you call after 8pm or on weekends, call the Hospital at [phone] and ask to speak to the Mission Planner catering convention services manager and the head operator sulfide will contact that person for you. When should you call for help? Call [phone] anytime you think you may need emergency [...] any problems. Where can you learn more? [facility] View your After Visit Summary and [...] cost to you. Content Version: 12.2 ?? [id number] [employer]. Care instructions adapted under license by [facility]. If you have questions about a medical condition or this instruction, always ask your healthcare professional. [employer] disclaims any warranty or liability for your [...] by mouth daily. SUMAtriptan (IMITREX) 20 mg/actuation [place], Non-Aerosol 1 spray as needed. 11/03/2017 metFORMIN [...] Hepatology Pre-Procedure History and Physical Exam Procedure: [place] Indication: UC restaging and surveillance Patient Active [...] EDT Appointment Non-Invasive Cardiology Lab [place] [phone] Luis Alfredo Velazquez MD [facility] [place] [address] 07/02/2024 4:00 PM EDT Office Visit Cardiology at [address] [place] [facility] [place] [address] 07/02/2024 4:40 PM EDT Office Visit Cardiology at [place] [phone] Luis Alfredo Velazquez MD [facility] [place] [address] 07/18/2024 9:00 AM EST Hospital Encounter Non-Invasive [place] [address] Arrived 07/27/2024 3:30 PM EST Office Visit Rheumatology at [place] [phone] Gabe Fong MD [facility] [place] [address] 12/07/2024 2:30 PM EDT TH Visit (TeleHealth) [place] [address] Roseamrie Morrow APRN [facility] [place] [address] documented as of this encounter Procedures Procedure Name Priority Date/Time Associated Diagnosis Comments SPECIMEN TO PATHOLOGY Routine 09/18/2023 4:27 PM EST SPECIMEN TO PATHOLOGY Routine 09/18/2023 4:27 PM EST SPECIMEN TO PATHOLOGY Routine 09/18/2023 4:27 PM EST SPECIMEN TO PATHOLOGY Routine 09/18/2023 4:27 PM EST SURGICAL PATHOLOGY REPORT Routine 09/18/2023 4:13 PM EST COLONOSCOPY Routine 09/18/2023 3:57 PM EST Colonoscopy, Biopsy ([id number]) 09/18/2023 3:47 PM EST Ulcerative pancolitis with complication documented in this encounter Results * Specimen to Pathology (09/18/2023 4:27 PM EST) AP Specimen 09/18/2023 4:27 PM EST 09/18/2023 4:27 PM EST Narrative [facility] - 09/18/2023 4:27 PM EST Specimen requisition ordered. ??Separate Pathology report to follow L Jose Rachel MD PATHOLOGY/CYTOLOGY O IRMA Performing Organization Address [facility] Co de Phone Number [facility] [place] [address] * Specimen to Pathology (09/18/2023 4:27 PM EST) AP Specimen 09/18/2023 4:27 PM EST 09/18/2023 4:27 PM EST Narrative [facility] - 09/18/2023 4:27 PM EST Specimen requisition ordered. ??Separate Pathology report to follow L Jose Rachel MD PATHOLOGY/CYTOLOGY O IRMA Performing Organization Address [facility] [place] [place] [address] * Specimen to Pathology (09/18/2023 4:27 PM EST) AP Specimen 09/18/2023 4:27 PM EST 09/18/2023 4:27 PM EST Narrative [facility] - 09/18/2023 4:27 PM EST Specimen requisition ordered. ??Separate Pathology report to follow L Jose Rachel MD PATHOLOGY/CYTOLOGY O IRMA Performing Organization Address [facility] [place] [address] * Specimen to Pathology (09/18/2023 4:27 PM EST) AP Specimen 09/18/2023 4:27 PM EST 09/18/2023 4:27 PM EST Narrative [facility] - 09/18/2023 4:27 PM EST Specimen requisition ordered. ??Separate Pathology report to follow L Jose Rachel MD PATHOLOGY/CYTOLOGY O IRMA Performing Organization Address [facility] de Phone Number [facility] [place] [address] * Surgical Pathology Report (09/18/2023 4:13 PM EST) Final Diagnosis [id number] ? Location: 4T; EA11; A The signing [...] MD Verified: ??09/26/2023 15:23 ??Pathologist Performed at: ??-[facility], [place] [address] Raiser Helper: Dg Bronw MD, FCAP, ??CLIA Certificate: [id number] SPECIMEN(S) SUBMITTED A - nondirected right colon [...] in toto ??in 2 cassettes labeled D1-D2. ?? 09/26/2023 3:23 PM EST [facility] GI Biopsy 09/18/2023 4:13 PM EST 09/18/2023 4:13 PM EST GI Biopsy 09/18/2023 4:13 PM EST 09/18/2023 4:13 PM EST GI Biopsy 09/18/2023 4:13 PM EST 09/18/2023 4:13 PM EST GI Biopsy 09/18/2023 4:13 PM EST 09/18/2023 4:13 PM EST L Jose Rachel MD PATHOLOGY/CYTOLOGY Clotilde SOLIS Performing Organization Address [facility]/State/ZIP Co de Phone Number [facility] [place] [address] [facility] [place] [address] * COLONOSCOPY (09/18/2023 3:57 PM EST) COLONOSCOPY [facility] Endoscopy ___ Procedure Date: 09/18/2023 3:57 PM ? Patient Name: Kim Funes ? N: [id number] ? Date of : 1960 ? Age: 63 ? Order #: [id number] ? Instrument Name: [id number] ? ___ Procedure: ? Colonoscopy Indications: ? [...] preparation was evaluated ? using the BBPS (Checkd.In Bowel ? Preparation Scale) with scores of: [...] 100 mL/hr, Intravenous, CONTINUOUS, Starting on Lorna 24 at 1500, Until Lorna 24 at 1656, Endoscopy (Day of Procedure) New Bag 09/18/2023 2:46 PM EST 100 mL/hr 100 mL/hr documented in this encounter Active and Recently Administered Medications Times are shown in EST. Continuous Medication Order 09/16/2023 09/17/2023 09/18/2023 lactated ringers infusion (CANCELED) 100 mL/hr, Intravenous, CONTINUOUS, Starting on Lorna 24 at 1500, Until Lorna 124 at 1656, Endoscopy (Day of Procedure) 1446 (New Bag - Prov ider: Chuyita Lawson RN) PRN Medication Order 09/16/2023 09/17/2023 09/18/2023 fentaNYL (pf) (50 mcg/mL) multi-dose injection (CANCELED) PRN, Starting on Lorna 24 at 1550, Until Lorna 1/24 at 1905, Intra-Operative (Intra-Procedure), Routine 1550 (Given - Provid er: Sugar Ruffin RN)1553 (Given - Provider: Sugar Ruffin RN)1559 (Given - Provider: Sugar Ruffin RN)1605 (Given - Provider: Sugar Ruffin RN) midazolam (pf) (Versed) (1 mg/mL) multi-dose injection (CANCELED) PRN, Starting on Lorna 1/24 at 1550, Until Lorna 1/24 at 1905, Intra-Operative (Intra-Procedure), Routine 1550 (Given - Provid er: Sugar Ruffin RN)1553 (Given - Provider: Sugar Ruffin RN)1559 (Given - Provider: Sugar Ruffin RN)1605 (Given - Provider: Sugar Ruffin RN) documented in this encounter Care Teams Cotton Sampler Relationship Specialty Start Date End Date Marcio Devlin DO [address] [place] [address] PCP - General Family Medicine 11/11/17 documented as of this encounter
--- OUTSIDE RECORDS SUMMARY | 2024-06-14 15:27 | XMS_ITS | Encounter Summary ---
Author Organization [facility] [place] [address] Care Team Providers Care Braided Band Assembler Name Role Phone Marcio Devlin DO Primary Care Provider [phone] Reason for Visit * Reason Onset Date Comments Prior Authorization 09/02/2023 Encounter Details Date Type Department Care Team (Late st Contact Info) Description 09/02/2023 [place] [address] Alana Recio Prior Authorization Social [...] EDT Appointment Non-[place] [address] Luis Alfredo Velazquez MD [facility] [place] [address] 07/02/2024 4:00 PM EDT Office Visit Cardiology at [address] [address] [place] [facility] [place] [address] 07/02/2024 4:40 PM EDT Office Visit Cardiology at [address] [address] Luis Alfredo Velazquez MD [facility] [place] [address] 07/18/2024 9:00 AM EST Hospital Encounter Non[place] [address] Arrived 07/27/2024 3:30 PM EST Office Visit Rheumatology at [place] [address] Gabe Fong MD [facility] [place] [address] 12/07/2024 2:30 PM EDT TH Visit (TeleHealth) [place] [address] Rosemarie Morrow APRN [facility] [place] [address] documented as of this encounter Visit Diagnoses Not on filedocumented in this encounter Care Teams Braided Band Assembler Relationship Specialty Start Date End Date Marcio Devlin DO [address] [place] [address] PCP - General Family Medicine 11/11/17 documented as of this encounter
--- OUTSIDE RECORDS SUMMARY | 2024-06-14 15:27 | XMS_ITS | Encounter Summary ---
Author Organization [facility] [place] [address] Care Team Providers Care Banking Consultant Name Role Phone Marcio Devlin DO Primary Care Provider Reason for Visit * Reason Comments Specialty Pharmacy Review Upadacitinib ( Rinvoq) 15mg Tablet Encounter Details Date Type Department Care Team (Late st Contact Info) Description 07/07/2023 Specialty [place] [address] Alison Ortiz, [facility] Social History Tobacco Use Types Packs/Day Years [...] to review their eligibility to fill at [facility]. Per patient's medication list they are prescribed Rinvoq and the medication is not able to be filled at the [facility]. At this time insurance mandates this medication must be filled through [facility]. documented in this encounter Plan of Treatment Upcoming Encounters Date Type Department Care Team (Late st Contact Info) Description 07/02/2024 2:00 PM EDT Appointment Non-[place] [address] Luis Alfredo Velazquez MD [facility] [place] [address] 07/02/2024 4:00 PM EDT Office Visit Cardiology at [address] [address] [place] [facility] [place] [address] 07/02/2024 4:40 PM EDT Office Visit Cardiology at [place] [phone] Luis Alfredo Velazquez MD [facility] [place] [address] 07/18/2024 9:00 AM EST Hospital Encounter Non-[place]vasive [place] [address] Arrived 07/27/2024 3:30 PM EST Office Visit Rheumatology at [place] [address] Gabe Fong MD [facility] [place] [address] 12/07/2024 2:30 PM EDT TH Visit (TeleHealth) Gastroenterology at [address] Rosemarie Morrow APRN [facility] [place] [address] documented as of this encounter Visit Diagnoses Not on filedocumented in this encounter Care Teams Banking Consultant Relationship Specialty Start Date End Date Marcio Devlin DO [address] [place] [address] PCP - General Family Medicine 11/11/17 documented as of this encounter
--- OUTSIDE RECORDS SUMMARY | 2024-06-14 15:27 | XMS_ITS | Encounter Summary ---
Author Organization [facility] [place] [address] Care Team Providers Care Ski Lift Operator Name Role Phone Marcio Devlin DO Primary Care Provider Encounter Details Date Type Department Care Team (Latest Contact Info) Description 10/07/2023 10:00 AM EST Office [place] [phone] Gabe Fong MD [facility] [place] [address] High risk medication use; Medication monitoring encounter; [...] however she has been talking with her pipe line repairer about getting in for repeat colonoscopy but [...] 2:00 PM EDT Appointment Non-[place] [phone] Luis Alfredo Velazquez MD [facility] [place] [address] 07/02/2024 4:00 PM EDT Office Visit Cardiology at [address] [phone] [place] [facility] [address] 07/02/2024 4:40 PM EDT Office Visit Cardiology at [place] [phone] Luis Alfredo Velazquez MD [facility] [address] 07/18/2024 9:00 AM EST Hospital Encounter Non-Invasive [place] [address] Arrived 07/27/2024 3:30 PM EST Office Visit Rheumatology at [place] [phone] Gabe Fong MD [facility] [place] [address] 12/07/2024 2:30 PM EDT TH Visit (TeleHealth) [place] [address] Rosemarie Morrow APRN [facility] [place] [address] documented as of this encounter Visit Diagnoses [...] unspecified documented in this encounter Care Teams Ski Lift Operator Relationship Specialty Start Date End Date Marcio Devlin DO [address] [place] [address] PCP - General Family Medicine 11/11/17 documented as of this encounter
--- OUTSIDE RECORDS SUMMARY | 2024-06-14 15:27 | XMS_ITS | Encounter Summary ---
Author Organization [facility] [place] [address] Care Team Providers Care Modern Greek Studies Professor Name Role Phone Marcio Devlin DO Primary Care Provider [phone] Reason for Visit * Reason Comments Prior Authorization Rinvoq 15 mg TB24 Encounter Details Date Type Department Care Team (Late st Contact Info) Description 09/03/2023 Specialty Pharm[place] [address] Dennis Solorzano, [facility] Social History Tobacco Use Types Packs/Day Years [...] this encounter Progress Notes * Dennis Solorzano, [facility] - 09/03/2023 10:17 AM EST [facility], Medication Prior Authorization Submission Patient: Kim Funes Patient : 1960 Patient Address: [address] [place] [phone] (home) Medication Name: RINVOQ 15 MG TABLET,EXTENDED RELEASE Medication ID: [id number] Subscriber Insurance: Learn[employer]est ([facility]) Subscriber Insurance Comment: Fax: Physician: GABE ADEN Physician Comment: Sent Via: Telephone Truong: Ref/Harmeet/YURIY#: [id number] Medication Strength Frequency Requested: Rinvoq 15 mg TB24 Take One Tablet By Mouth Once Daily Qty/Day Supply: New Start: Renewal Diagnosis & ICD-10 Code: Ankylosing Spondylitis M45.2 Patient Notified: No Submission Notes: - Reauthorization Dennis Solorzano CPHT 09/03/23 10:18 AM * Mai Martinez - 09/03/2023 10:17 AM EST [facility], Prior Authorization Approval Medication Name: RINVOQ 15 MG TABLET,EXTENDED RELEASE Medication ID: [id number] Approval Dates: 10/08/2023 to 10/07/2024 Insurance requirements/notes: None Other Notes: None Case/Reference #: [id number] Approval notification Received via: Fax Copay: N/A Copay assistance: None Copay Notes: Insurance mandated Pharmacy: [facility] Fillable at [facility]: No Patient Notified: Left Voicemessage Pharmacy staff will be reaching out to the patient to inform them of their medication's [facility]. If applicable, a pharmacist will speak with the patient to offer our specialty pharmacy services and to arrange delivery of their medication. Mai Martinez 10/08/23 8:54 AM documented in this encounter Plan of Treatment Upcoming Encounters Date Type Department Care Team (Late st Contact Info) Description 07/02/2024 2:00 PM EDT Appointment [place] [phone] Luis Alfredo Velazquez MD [facility] [place] [address] 07/02/2024 4:00 PM EDT Office Visit Cardiology at [address] [phone] Mars rGeen [place] [facility] [place] [address] 07/02/2024 4:40 PM EDT Office Visit Cardiology at [place] [phone] Luis Alfredo Velazquez MD [facility] [place] [address] 07/18/2024 9:00 AM EST Hospital Encounter Non-[place] [address] Arrived 07/27/2024 3:30 PM EST Office Visit Rheumatology at [place] [address] Gabe Aden MD [facility] [place] [address] 12/07/2024 2:30 PM EDT TH Visit (TeleHealth) Gastroenterology at [place] [phone] Rosemarie Morrow, [employer] [facility] [place] [address] documented as of this encounter Visit Diagnoses Not on filedocumented in this encounter Care Teams Modern Greek Studies Professor Relationship Specialty Start Date End Date Marcio Devlin DO [address] [place] [address] PCP - General Family Medicine 11/11/17 documented as of this encounter
--- OUTSIDE RECORDS SUMMARY | 2024-06-14 15:27 | XMS_ITS | Encounter Summary ---
Author Organization [facility] [place] [address] Care Team Providers Care Metal Sponge Making Machine Operator Name Role Phone Marcio Devlin DO Primary Care Provider [phone] Reason for Visit * Reason Comments Specialty Pharmacy Review Rinvoq 15mg Encounter Details Date Type Department Care Team (Late st Contact Info) Description 04/28/2023 Specialty [place] [address] Tangela Agarwal, DISEASE CASE MANAGER Social History Tobacco Use Types Packs/Day [...] 04/28/2023 11:59 PM EDT The [facility] has completed a benefits investigation for Kim Funes to review their eligibility to fill at [facility]. Per patient's medication list they are prescribed Rinvoq and the medication is not able to be filled at the [facility]. At this time insurance mandates this medication must be filled [facility] documented in this encounter Plan of Treatment Upcoming Encounters Date Type Department Care Team (Late st Contact Info) Description 07/02/2024 2:00 PM EDT Appointment Non-Invasive [place] [address] Luis Alfredo Velazquez MD [facility] [place] [address] 07/02/2024 4:00 PM EDT Office Visit Cardiology at [address] [phone] [place] [facility] [place] [address] 07/02/2024 4:40 PM EDT Office [place] [address] Luis Alfredo Velazquez MD [facility] [place] [address] 07/18/2024 9:00 AM EST Hospital Encounter Non-[place] [address] Arrived 07/27/2024 3:30 PM EST Office [place] [address] Gabe Fong MD [facility] [place] [address] 12/07/2024 2:30 PM EDT TH Visit (TeleHealth) Gastroenterology at [address] Rosemarie Morrow APRN [facility] [place] [address] documented as of this encounter Visit Diagnoses Not on filedocumented in this encounter Care Teams Metal Sponge Making Machine Operator Relationship Specialty Start Date End Date Marcio Devlin DO [address] [place] [address] PCP - General Family Medicine 11/11/17 documented as of this encounter
--- OUTSIDE RECORDS SUMMARY | 2024-06-14 15:27 | XMS_ITS | Encounter Summary ---
Author Organization [facility] [place] [address] Care Team Providers Care Airline Pilot Name Role Phone Marcio Devlin DO Primary Care Provider [phone] Reason for Visit * Reason Comments Medication Refill Encounter Details Date Type Department Care Team (Late st Contact Info) Description 07/07/2023 [place]ill [place] [phone] Jarad Srivastava PA [address] [place] [address] Social History Tobacco Use Types Packs/Day Years [...] PM EDT Appointment Non-Invasive [place] [phone] Luis Alfredo Velazquez MD [facility] [place] [address] 07/02/2024 4:00 PM EDT Office Visit Cardiology at [address] [phone] [place] [facility] [place] [address] 07/02/2024 4:40 PM EDT Office Visit Cardiology at [address] [phone] Luis Alfredo Velazquez MD [facility] [place] [address] 07/18/2024 9:00 AM EST Hospital Encounter Non-Invasive [place] [address] Arrived 07/27/2024 3:30 PM EST Office [place] [address] Gabe Fong MD [facility] RHEUMATOLOGY [place], [place] [phone] 12/07/2024 2:30 PM EDT TH Visit (TeleHealth) [place] [address] Rosemarie Morrow APRN [facility] [place] [address] documented as of this encounter Visit Diagnoses Not on filedocumented in this encounter Care Teams Airline Pilot Relationship Specialty Start Date End Date Marcio Devlin DO [address] [place] [address] PCP - General Family Medicine 11/11/17 documented as of this encounter
--- OUTSIDE RECORDS SUMMARY | 2024-06-14 15:27 | XMS_ITS | Encounter Summary ---
[place] [address] Care Team Providers Care Casting Agent Name Role Phone Marcio Devlin DO Primary Care Provider [phone] Reason for Visit * Auth/Cert (Routine) Specialty Diagnoses / Procedures Referred By Contac t Referred To Contact Diagnoses Complete heart block Bradycardia Procedures EMERGENCY AMARILISI Elle Lin MD [facility] [place] [address] [facility] Referral ID Status Reason Start Date Expiration Date Visits Re quested Visits Authorized [id number] 1 1 Encounter Details Date Type Department Care Team (Late st Contact Info) Description 10/21/2023 1:05 PM EST Anesthesia [place] [address] Davonte Raymond MD [facility] [place] [address] Rex Johns CRNA [facility] [place] [address] Anesthesia Record Procedure Summary Procedure Name Responsible [...] of months or less [facility] Utilities Answer Date Recorded In the past 12 months has e [employer], gas, oil, or water [employer] threatened to shut off services in your [...] a senior care (including now)? No 10/21/2023 IPV Inpatient Questions [...] 10/21/23 Room / Location: EP A-LAB ROOM [address] [place] [address] [facility] Anesthesia Start: 1305 Anesthesia Stop: 1513 Procedure: ELECTROPHYSIOLOGY PROCEDURE (Left) Diagnosis: (AFIB) Providers: Dilip Berumen MD Responsible Provider: Davonte Raymond MD Anesthesia Type: MAC ASA Status: 3 All Anesthesia Providers: Anesthesiologist: Davonte Raymond MD Tax Examiner: Ofelia Manuel MD Vitals Value Taken Time [...] disease Colonoscopy 09/19/08 (Dr. Shady Luz at [facility]) for surveillance for dysplasia. Areas of [...] WITH BX performed by YAQUELIN ESTRADA at [facility] ENDOSCOPY PRO COLONOSCOPY, BIOPSY N/A 03/04/2017 COLONOSCOPY FLEXIBLE, WITH BX (WRVU 3.66) performed by Raúl Austin MD at [facility] ENDOSCOPY PRO COLONOSCOPY, BIOPSY N/A 11/09/2019 COLONOSCOPY FLEXIBLE, WITH BX (WRVU 3.66) performed by Froilan Sahni MD at [facility] ENDOSCOPY PRO COLONOSCOPY, BIOPSY N/A 12/19/2020 COLONOSCOPY FLEXIBLE, WITH BX (WRVU 3.66) performed by Dajuan Rachel MD at [facility] ENDOSCOPY PRO COLONOSCOPY, BIOPSY N/A 09/24/2022 COLONOSCOPY FLEXIBLE, WITH BX (WRVU 3.66) performed by Dajuan Rachel MD at [facility] ENDOSCOPY PRO COLONOSCOPY, BIOPSY N/A 09/18/2023 COLONOSCOPY FLEXIBLE, WITH BX (WRVU 3.56) performed by Dajuan Rachel MD at [facility] ENDOSCOPY PRO COLONOSCOPY, DIAGNOSTIC N/A 11/09/2019 COLONOSCOPY, DIAGNOSTIC performed by Froilan Sahni MD at [facility] ENDOSCOPY PRO COLONOSCOPY, REMV LESN, SNARE 01/02/2011 COLONOSCOPY, POLYPECTOMY, REMOVAL LESION BY SNARE performed by YAQUELIN ESTRADA at [facility] ENDOSCOPY PRO COLONOSCOPY, REMV LESN, SNARE N/A 03/04/2017 COLONOSCOPY, POLYPECTOMY, REMOVAL LESION BY SNARE (WRVU 4.67) performed by Raúl Austin MD at [facility] ENDOSCOPY PRO COLONOSCOPY, REMV LESN, SNARE N/A 09/24/2022 COLONOSCOPY, POLYPECTOMY, REMOVAL LESION BY SNARE (WRVU 4.67) performed by Dajuan Rachel MD at [facility] ENDOSCOPY PRO COMBINED ANT/POST COLPORRHAPHY W CYSTO N/A 03/10/2018 COLPORRHAPHY ANTERIOR-POSTERIOR; INC CYSTOURETHROSCOPY (WRVU 14.44) performed by Liang Fong MD at [facility] MAIN OR PRO REVAGINAL PROLAPSE, UTEROSACRAL N/A 03/10/2018 COLPOPEXY, VAGINAL, INTRAPERITONEAL APPROACH (WRVU 11.66) [facility] PRO SLING OPER STRES INCONTINENCE N/A 03/10/2018 URETHRAL SUSPENSION, SLING\FASCIA OR SYNTHETIC (WRVU 12.13) performed by Liang Fong MD at [facility] MAIN OR PRO VAG HYST, RMV TUBE/OVARY N/A 03/10/2018 HYSTERECTOMY, VAGINAL, REMOVAL TUBE(S) & OR OVARY(S) (WRVU 15.94) performed by Liang Fong MD at [facility] MAIN OR SALPINGECTOMY XR FLUORO INJECTION DRAINAGE JOINT LG RIGHT Right 03/09/2019 XR Fluoro Guided Joint Injection Large Right 03/09/2019 [facility] RAD XRAY Social History Tobacco [...] 2:00 PM EDT Appointment Non-[place] [phone] Luis Alfredo Velazquez MD [facility] [place] [address] 07/02/2024 4:00 PM EDT Office Visit Cardiology at [address] [phone] Mars Green PA [facility] [place] [address] 07/02/2024 4:40 PM EDT Office Visit Cardiology at [address] [phone] Luis Alfredo Velazquez MD [facility] [place] [address] 07/18/2024 9:00 AM EST Hospital Encounter Non-[place] [phone] Arrived 07/27/2024 3:30 PM EST Office [place] [phone] Gabe Fong MD [facility] [place] [address] 12/07/2024 2:30 PM EDT TH Visit (TeleHealth) [place] [phone] Rosemarie Morrow APRN [facility] GASTROENTEROLOGY [place], [place] [phone] documented as of this encounter Visit Diagnoses Not on filedocumented in this encounter Administered Medications Inactive Administered Medications - up to 3 most recent administrations Medication Order MAR Action Action Date Dose Rate Site ePHEDrine sulfate (5 mg/mL) multi-dose injection Intravenous, PRN, Starting on Fri10/21/23 at 1335, Until 10/21/23 at 1513, Anesthesia Intra-op, Routine Given 10/21/2023 2:26 PM EST 10 mg Given 10/21/2023 2:21 PM EST 10 mg Given 10/21/2023 2:15 PM EST 10 mg metoprolol (LOPRESSOR) injection Intravenous, PRN, Starting on Tu10/21/23 at 1442, Until 10/21/23 at 1513, Anesthesia Intra-op, Routine Given 10/21/2023 2:42 PM EST 2.5 mg ondansetron (pf) (Zofran) (2 mg/mL) injection Intravenous, PRN, Starting on Fri10/21/23 at 1447, Until 10/21/23 at 1513, Anesthesia Intra-op, Routine Given 10/21/2023 2:47 PM EST 8 mg propofoL (Diprivan) (10 mg/mL) infusion Intravenous, CONTINUOUS PRN, Starting on Fri10/21/23 at 1322, Until Fri10/21/23 at 1513, Anesthesia Intra-op, Routine Rate/Dose Change [...] PRN, Starting on Fri10/21/23 at 1336, Until Tu10/21/23 at 1513, Anesthesia Intra-op, Routine Given 10/21/2023 1:36 PM EST 1.25 g documented in this encounter Care Teams Casting Agent Relationship Specialty Start Date End Date Marcio Devlin DO [address] [place] [address] PCP - General Family Medicine 11/11/17 documented as of this encounter
--- OUTSIDE RECORDS SUMMARY | 2024-06-14 15:27 | XMS_ITS | Encounter Summary ---
Author Organization [facility] [place] [address] Care Team Providers Care Child Support Specialist Name Role Phone Marcio Devlin DO Primary Care Provider [phone] Encounter Details Date Type Department Care Team (Late st Contact Info) Description 09/10/2023 Telephone [place] [address] [place] R[place] Social History Tobacco [...] - 09/10/2023 1:40 PM EST Kim Funes [id number] Diagnosis/Indication: UC surveillance - [employer] started 04/2023 [...] procedure? No You must have a responsible libertarian who will drive you to your procedure, stay on campus for the entire duration of your procedure, and drive you home from your procedure. 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 *Please Verify [...] EDT Appointment Non-Invasive Cardiology Lab [place] [phone] Luis Alfredo Velazquez MD [facility] [place] [address] 07/02/2024 4:00 PM EDT [place] [phone] Mars Green PA [facility] [address] 07/02/2024 4:40 PM EDT Office Visit Cardiology at [place] [phone] Luis Alfredo Velazquez MD [facility] [place] [address] 07/18/2024 9:00 AM EST Hospital Encounter Non-[place]vasive [place] [address] Arrived 07/27/2024 3:30 PM EST Office [place] [phone] Gabe Fong MD [facility] [place] [address] 12/07/2024 2:30 PM EDT TH Visit (TeleHealth) [place] [phone] Rosemarie Morrow APRN [facility] [place] [address] documented as of this encounter Visit Diagnoses Not on filedocumented in this encounter Care Teams Child Support Specialist Relationship Specialty Start Date End Date Marcio Devlin DO [address] [place] [address] PCP - General Family Medicine 11/11/17 documented as of this encounter
--- OUTSIDE RECORDS SUMMARY | 2024-06-14 15:27 | XMS_ITS | Encounter Summary ---
Author Organization [facility] Address [facility] [place] [address] Care Team Providers Care Vp Scientific Affairs Name Role Phone Marcio Devlin DO Primary Care Provider [phone] Reason for Visit * Auth/Cert (Routine) Specialty Diagnoses / Procedures Referred By Contac t Referred To Contact Diagnoses Complete heart block Bradycardia Procedures EMERGENCY AMARILISI Elle Tristan MD [facility] [place] [address] [facility] Referral ID Status Reason Start Date Expiration Date Visits Re quested Visits Authorized [id number] 1 1 Encounter Details Date Type Department Care Team (Late st Contact Info) Description 10/21/2023 1:00 PM EST - 10/21/2023 3:30 PM EST Surgery [place] [address] Dilip Berumen MD [facility] [place] [address] ELECTROPHYSIOLOGY PROCEDURE Social History Tobacco Use Types [...] Kim Funes Patient Age: 63 y.o. Language: Scottish Race: White Ethnicity: Not nor Admit date: 10/20/2023 Discharge date and time: 10/22/2023 Attending Physician: Humberto Lynn MD Discharge Physician: Humberto Lynn MD ID: Kim Funes is a 63 y.o. female w/ PMH of ulcerative colitis, ankylosing spondylitis, HTN and HLD who presented to [facility] for symptomatic bradycardia in the setting of [...] spondylitis. PCP Contact Information: Marcio Devlin DO [address] [facility] [place] [address] Pending Studies and Lab Data: none No [...] disease Colonoscopy 09/19/08 (Dr. Shady Luz at THE [...] iritis Escalated to weekly Humira 11/2019. ADA (manvel) from 6 q 2wk to 12.7 qwk, as well as BID SSZ Colonoscopy Oct 2019: normal rectum, mod-severe inflammation and narrowing from 6-25 cm from the anus, normal remainder of colon. Path: mild active chronic colitis in ac/tc/dc/sc, severe active colitis with ulceration in proximal rectum Colonoscopy December 2020 - severe involvement of L colon, llsd-ox-cixodubv involvement of transverse and R colon. Worse compared to last exam. SSA at hepatic flexure Adalimumab level (manvel) was 12.7 Switched to Stelara ( 03/21/21, first infusion dose) d/t Lost of response to Humira. Stopped Uceris and sulfasalazine in January 2021. Stevenson 09/2022 - tubular featureless L colon with [...] , patient went to her PCP at [facility] internal medicine where she was evaluated [...] and request was made to transfer to [facility] for ongoing care and possible permanent pacemaker evaluation. Upon interview in the [facility], patient resting comfortably in bed without concern. She states that shehas ongoing fatigue and weakness but denies lightheadedness or dizziness. Hospital Course: Kim Funes was admitted to the Hospital Medicine Service on 10/20/2023. The following issues were addressed and she was discharged on 10/22/2023. #Complete Heart Block w/ Narrow Junctional Escape After admission to the [facility], patient's home beta-rosita was discontinued. After [...] have questions please contact the health medicare compliance auditor that requested your imaging first. Electronically signed by: Liang Padilla MD, [facility] ([phone]), at 10/22/2023 8:51 AM XR Chest One View (Exam End: 10/21/2023 8:35 PM) Impression No acute pulmonary findings Thank you for letting us participate in the care of this patient. If you are a health care provider and have any questions regarding this report, please contact the number below. For patients who have questions please contact the health medicare compliance auditor that requested your imaging first. Electronically signed by: Liang Padilla MD, [facility] ([phone]), at 10/22/2023 8:45 AM Discharge Conditions/Prognosis: Upon [...] 10 mg Refills: 0 SUMAtriptan 20 mg/actuation Lebeau, Non-Aerosol Commonly known as: IMITREX 1 spray [...] 10 mg Refills: 0 SUMAtriptan 20 mg/actuation Lebeau, Non-Aerosol Commonly known as: IMITREX 1 spray [...] Center 11/04/2023 11:00 AM DragRosemarie burr APRN [facility] GASTRO [facility] 01/06/2024 1:00 PM Gabe Fong MD [facility]UM [facility] Your Inpatient Medical Team at [facility] Name(s) of your inpatient provider(s): Humberto Lynn MD Your Primary Care Provider: Marcio Devlin DO [phone] For questions regarding this document or issues relating to this hospitalization on the Medical Service, please contact your inpatient physician through the [facility] . Issues afterhours and on weekends will be handled by the Hospitalist staff on-call. FINAL ICD/PACEMAKER RECOMMENDATIONS: 1. Standard post implant discharge instructions (see below): 2. Medications as listed above. 3. You may use ice packs over the incision. Make sure to use a tobacco cloth reclaimer (such as a towel) in between the [...] F. The office scheduling phone number is [phone]. ARM MOVEMENT RESTRICTIONS POST-IMPLANT For 4-6 Weeks: [...] product, please call the device clinic at [phone]. General Instructions None Future Appointments and Orders Future Appointments and Orders Future Appointments Provider Department Dept Phone 11/04/2023 11:00 AM Rosemarie Morrow APRN Gastroenterology at [facility] Arrive at: Home [phone] To view instructions for your video visit, click here, or visit this website: [email or web address] If you have not previously downloaded the [facility] patient portal software, [employer], or the [employer] maria c, please do so by [...] to Disable Pop-Up Block for [facility] Video Visits Zoom asking for a meeting password? - Exit out of the Zoom program and try the link again 11/04/2023 1:00 PM Lorri Mckinney PA Cardiology at [facility] Arrive at: Rn Pool Area 4A [phone] 01/06/2024 1:00 PM Gabe Fong MD Rheumatology at [facility] Arrive at: Rn Pool Area 5C [phone] Inpatient Provider Contact Information: Clarence Pearl MD [...] 10 mg Refills: 0 SUMAtriptan 20 mg/actuation Lebeau, Non-Aerosol Commonly known as: IMITREX 1 spray [...] Center 11/04/2023 11:00 AM Rosemarie Morrow APRN [facility] GASTRO [facility] 01/06/2024 1:00 PM Gabe Fong MD [facility]UM [facility] Your Inpatient Medical Team at [facility] Name(s) of your inpatient provider(s): Humberto Lynn MD Your Primary Care Provider: Marcio Devlin DO [phone] For questions regarding this document or issues relating to this hospitalization on the Medical Service, please contact your inpatient physician through the [facility] . Issues afterhours and on weekends will be handled by the Hospitalist staff on-call. FINAL ICD/PACEMAKER RECOMMENDATIONS: 1. Standard post implant discharge instructions (see below): 2. Medications as listed above. 3. You may use ice packs over the incision. Make sure to use a tobacco cloth reclaimer (such as a towel) in between the [...] F. The office scheduling phone number is [phone]. ARM MOVEMENT RESTRICTIONS POST-IMPLANT For 4-6 Weeks: [...] product, please call the device clinic at [phone]. documented in this encounter Medications at Time [...] by mouth daily. SUMAtriptan (IMITREX) 20 mg/actuation Lebeau, Non-Aerosol 1 spray as needed. 11/03/2017 metFORMIN [...] unit. CARLOS ARIAS MD 10/21/2023 * Ruben, Gelnn Cuevas MD - 10/21/2023 7:01 AM EST Images from the original note were not included. Cardiology ICU Progress Note Patient info: Name: Kim Funes : 1960 PCP: Marcio Devlin DO PCP phone number: [phone] Date of Admission: 10/20/2023 ( Hospital Day [...] in the last 7068 hours. Invalid input(s): [id number] Recent Labs 10/21/23 0754 10/20/23 2106 10/20/23 [...] for ongoing care. Glenn Miranda MD, [facility] Staff Field Sampling Technician * Elle Tristan MD - 10/20/2023 1:46 [...] placement 10/21/23. History of Present Illness: Per [facility] H&P This patient presented to the [...] , patient went to her PCP at [facility] internal medicine where she was evaluated [...] and request was made to transfer to [facility] for ongoing care and possible permanent pacemaker evaluation. Upon interview in the [facility], patient resting comfortably in bed without concern. She states that shehas ongoing fatigue and weakness but denies lightheadedness or dizziness. Hospital Course to date After admission to the [facility], patient's home beta-rosita was discontinued. After [...] disease Colonoscopy 09/19/08 (Dr. Shady Luz at THE [...] iritis Escalated to weekly Humira 11/2019. ADA (manvel) from 6 q 2wk to 12.7 qwk, as well as BID SSZ Colonoscopy Oct 2019: normal rectum, mod-severe inflammation and narrowing from 6-25 cm from the anus, normal remainder of colon. Path: mild active chronic colitis in ac/tc/dc/sc, severe active colitis with ulceration in proximal rectum Colonoscopy December 2020 - severe involvement of L colon, owvr-sb-ucphbqgy involvement of transverse and R colon. Worse compared to last exam. SSA at hepatic flexure Adalimumab level (manvel) was 12.7 Switched to Stelara ( 03/21/21, first infusion dose) d/t Lost of response to Humira. Stopped Uceris and sulfasalazine in January 2021. Stevenson 09/2022 - tubular featureless L colon with [...] in the last 7068 hours. Invalid input(s): [id number] Heme: No results for input(s): LDH, HAPTOGLOBIN, [...] PCP: Marcio Devlin DO PCP phone number: [phone] Date of Admission: 10/20/2023 ( Hospital Day [...] , patient went to her PCP at [facility] internal medicine where she was evaluated [...] and request was made to transfer to [facility] for ongoing care and possible permanent [...] disease Colonoscopy 09/19/08 (Dr. Shady Luz at THE [...] performed by YAQUELIN ESTRADA at [facility] ENDOSCOPY PRO COLONOSCOPY, BIOPSY N/A 03/04/2017 COLONOSCOPY FLEXIBLE, WITH BX (WRVU 3.66) performed by Raúl Austin MD at [facility] ENDOSCOPY PRO COLONOSCOPY, BIOPSY N/A 11/09/2019 COLONOSCOPY FLEXIBLE, WITH BX (WRVU 3.66) performed by Froilan Sahni MD at [facility] ENDOSCOPY PRO COLONOSCOPY, BIOPSY N/A 12/19/2020 COLONOSCOPY FLEXIBLE, WITH BX (WRVU 3.66) performed by Dajuan Rachel MD at [facility] ENDOSCOPY PRO COLONOSCOPY, BIOPSY N/A 09/24/2022 COLONOSCOPY FLEXIBLE, WITH BX (WRVU 3.66) performed by Dajuan Rachel MD at [facility] ENDOSCOPY PRO COLONOSCOPY, BIOPSY N/A 09/18/2023 COLONOSCOPY FLEXIBLE, WITH BX (WRVU 3.56) performed by Dajuan Rachel MD at [facility] ENDOSCOPY PRO COLONOSCOPY, DIAGNOSTIC N/A 11/09/2019 COLONOSCOPY, DIAGNOSTIC performed by Froilan Sahni MD at [facility] ENDOSCOPY PRO COLONOSCOPY, REMV LESN, SNARE 01/02/2011 COLONOSCOPY, POLYPECTOMY, REMOVAL LESION BY SNARE performed by YAQUELIN ESTRADA at [facility] ENDOSCOPY PRO COLONOSCOPY, REMV LESN, SNARE N/A 03/04/2017 COLONOSCOPY, POLYPECTOMY, REMOVAL LESION BY SNARE (WRVU 4.67) performed by Raúl Austin MD at [facility] ENDOSCOPY PRO COLONOSCOPY, REMV LESN, SNARE N/A 09/24/2022 COLONOSCOPY, POLYPECTOMY, REMOVAL LESION BY SNARE (WRVU 4.67) performed by Dajuan Rachel MD at [facility] ENDOSCOPY PRO COMBINED ANT/POST COLPORRHAPHY W CYSTO N/A 03/10/2018 COLPORRHAPHY ANTERIOR-POSTERIOR; INC CYSTOURETHROSCOPY (WRVU 14.44) performed by Liang Fong MD at [facility] MAIN OR PRO REVAGINAL PROLAPSE, UTEROSACRAL N/A 03/10/2018 COLPOPEXY, VAGINAL, INTRAPERITONEAL APPROACH (WRVU 11.66) performed [facility] PRO SLING OPER STRES INCONTINENCE N/A 03/10/2018 URETHRAL SUSPENSION, SLING\FASCIA OR SYNTHETIC (WRVU 12.13) performed by Liang Fong MD at [facility] MAIN OR PRO VAG HYST, RMV TUBE/OVARY N/A 03/10/2018 HYSTERECTOMY, VAGINAL, REMOVAL TUBE(S) & OR OVARY(S) (WRVU 15.94) performed by Liang Fong MD at [facility] MAIN OR SALPINGECTOMY XR FLUORO INJECTION DRAINAGE JOINT LG RIGHT Right 03/09/2019 XR Fluoro Guided Joint Injection Large Right 03/09/2019 [facility] RAD XRAY Family History Family History [...] Blood Gas) No results for input(s): PHART, QLD4ZTW, PO2ART, RMQ0YZL, LACTATEVEN, INV5GFE, PFRATIOART2 in the last 168 hours. VBG (Venous Blood Gas) No results for input(s): PHVEN, GNR5UBS, PO2VEN, OVA0LYN, LACTATEVEN in the last 168 hours. Mixed Venous Sat No results for input(s): G6QABV7 in the last 168 hours. Intake/Output Summary [...] in the last 68 hours. Invalid input(s): FROTPIVRGXK2W No results for input(s): POCGLU in the last 168 hours. Heme No results for input(s): LDH, HAPTOGLOBIN, URICACID in the last 168 hours. ABG (Arterial Blood Gas) No results for input(s): PHART, DDY6YBZ, PO2ART, VBP5AGA, LACTATEVEN, JWJ2PON, PFRATIOART2 in the last 168 hours. VBG (Venous Blood Gas) No results for input(s): PHVEN, TTQ2MRK, PO2VEN, QFY7LKL, LACTATEVEN in the last 168 hours. Mixed Venous Sat No results for input(s): B6TKHJ8 in the last 168 hours. Microbiology: Microbiology [...] Jean Roca, DO Internal Medicine, PGY-1 Cardiology, [facility] 10/20/23 2:14 PM * Jason Castro MD - 10/20/2023 10:39 AM EST Inpatient Cardiac Electrophysiology- Initial Consultation Date of Consultation: 10/20/2023 Admit Date: 10/20/2023 Patient Location: [facility] Attending Field Sampling Technician: Riley Reason for Consult: Complete Heart Block [...] by mouth daily. SUMAtriptan (IMITREX) 20 mg/actuation Lebeau, Non-Aerosol 1 spray as needed. 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 Gera Martell MD Cardiac Electrophysiology Fellow [facility] Pager [phone] 10/20/2023 I met with the patient today [...] above plan. Dr. 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 Current Living Arrangements: home/apartment/condo. Accessibility Concerns:house 1 floor with 3 LISS. Current Functional Ability: Independent, Assistive Person DME used at home: none DME Needed at Discharge: none Patient is insured through: Primary Insurance: [employer] Payor: [facility] / Plan: [facility] PPO / Product Type: *No Product type* / Secondary Insurance: N/A Prescription Coverage: Yes This plan was formulated with input from patient and team. All are in agreement with plan. GHADA Shah, RN Inpatient Javascript Web Developer- Cardiology Office of Care Management Pager #: [phone] * Consult Note - Chepe Russo MD - 10/22/2023 8:00 AM EST Images from the original note were not included. [facility] MARIA ALEJANDRA Harvey [phone] CARDIAC ELECTROPHYSIOLOGY CONSULT NOTE Patient: Kim Funes [...] disease Colonoscopy 09/19/08 (Dr. Shady Luz at THE [...] 2020 - severe involvement of L colon, snej-ge-bwikffbk involvement of transverse and R colon. Worse compared to last exam. SSA at hepatic flexure Adalimumab level (manvel) was 12.7 Switched to Stelara ( 03/21/21, first infusion dose) d/t Lost of response to Humira. Stopped Uceris and sulfasalazine in January 2021. Stevenson 09/2022 - tubular featureless L colon with [...] She underwent placement of a left sided [employer] dual chamber pacemaker on 10/21/23. Procedure [...] expected position. No pneumothorax. Diagnostics Presenting EGMs: -COUNTER CLERK TRACTOR PARTS Underlying Rhythm: CHB with narrow junctional escape in the 30's Atrial Episodes: None Ventricular Episodes: None Atrial Pacing: <1% Ventricular Pacin% Lead and Generator Data Incident Response Coordinator Model # Serial # Generator [employer] [id number] Atrial Lead [employer] [id number] Ventricular Lead [employer] [id number] Pace / Sense Data Sensed wave (mV) [...] She underwent placement of a left sided [employer] dual chamber pacemaker on 10/21/23. Device is functioning well and CXR unremarkable. Recommendations: - Pocket incision is well healed without signs or symptoms of infection - Device is functioning appropriately - Patient will have 10 day follow up here and will then follow up at [facility] Case was discussed with Dr. Berumen who agrees with recommendations as documented above. EP Consult service will continue to follow patient. x Recommendations are above, please page if further consultation required. Chepe Russo Spray Operator [id number] Associated attestation - Dilip Berumen MD - 10/22/2023 11:33 AM EST Post-op day # 1 s/p dual-chamber pacemaker for symptomatic complete heart block . Patient feels much, much better. Post implant interrogation - excellent RA and RV parameters. CXR- good and stable lead positions, no sign of PTX. OK to discharge patient from EP standpoint. Will arrange ~[facility] at [facility] and ~ 91 day check at [facility]. Dilip Berumen MD, PhD, [facility] Cardiac Electrophysiology 10/22/2023 11:32 AM [...] disease Colonoscopy 09/19/08 (Dr. Shady Luz at THE [...] surrogate would be surrogate decision maker per [place] decision making law. (Only good for 180 days) Any patient receiving care in [place] must abide by [place] law. The hierarchy for surrogate decision making [...] (i) The agent with financial power of defense attorney or a conservator appointed in accordance with RSA 464-A. (j) The guardian of the patient???s estate. 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) Prior [...] has the electric, gas, oil, or water [employer] threatened to shut off services in your [...] Current DME: none Home Address confirmed as: [address] [place] [phone] Social & Family Supports: All names listed below confirmed with patient as current and correct Extended Emergency Contact Information Primary Emergency Contact: Lucien Funes Address: [address] [place] [phone] [facility] Mobile Relation: Spouse Secondary Emergency Contact: Olivia [...] points: Addiction likely Health/Prescription Coverage: Primary Insurance: [employer] Payor: [employer] / Plan: [facility] PPO / Product Type: *No Product type* / Secondary Insurance: N/A ; Prescription Coverage: Yes Preferred Pharmacy: [id number] - [place], [place] - [address] [facility] [address] [place] [address] [address] Status: Patient is a : No Primary Care Provider confirmed: Marcio Devlin DO [phone] Patient/Caregiver Goals of Treatment: return home with [...] 2:00 PM EDT Appointment Non[place] [address] Luis Alfredo Velazquez MD [facility] [place] [address] 07/02/2024 4:00 PM EDT Office Visit Cardiology at [address] [phone] [place] [facility] [place] [address] 07/02/2024 4:40 PM EDT Office Visit Cardiology at [address] [phone] Luis Alfredo Velazquez MD [facility] [place] [address] 07/18/2024 9:00 AM EST Hospital Encounter Non-[place] [phone] Arrived 07/27/2024 3:30 PM EST Office Visit Rheumatology at [facility] [place] [address] Gabe Fong MD [facility] [place] [address] 12/07/2024 2:30 PM EDT TH Visit (TeleHealth) [place] [phone] Rosemarie Morrow APRN [facility] [place] [address] documented as of this encounter Procedures Procedure Name Priority Date/Time Associated Diagnosis Comments XR CHEST PA AND LATERAL Routine 10/22/19 5:34 AM EST HEMOGRAM Routine 10/22/2023 2:41 AM EST DIFFERENTIAL, AUTOMATED Routine 10/22/19 2:41 AM EST CBC (WITH DIFF) Routine 10/22/2023 2:41 AM EST PHOSPHORUS Routine 10/22/2023 2:41 AM EST MAGNESIUM Routine 10/22/2023 2:41 AM EST BASIC METABOLIC PANEL Routine 10/22/2023 2:41 AM EST POCT GLUCOSE Routine 10/21/2023 9:43 PM EST XR CHEST ONE VIEW Routine 10/21/2023 8:3 5 PM EST POCT GLUCOSE Routine 10/21/2023 3:33 PM EST ELECTROPHYSIOLOGY PROCEDURE Routine 10/21/2023 3:04 PM EST POCT GLUCOSE Routine 10/21/2023 11:31 AM EST BASIC METABOLIC PANEL Routine 10/21/2023 7:55 AM EST POCT GLUCOSE Routine 10/21/2023 7:54 AM EST HEMOGRAM Routine 10/21/2023 6:04 AM EST DIFFERENTIAL, AUTOMATED Routine 10/21/19 24 6:04 AM EST CBC (WITH DIFF) Routine 10/21/2023 6:04 AM EST PHOSPHORUS Routine 10/21/2023 6:04 AM EST MAGNESIUM Routine 10/21/2023 6:04 AM EST POCT GLUCOSE Routine 10/20/2023 9:06 PM EST POCT GLUCOSE Routine 10/20/2023 4:50 PM EST HEMOGRAM Routine 10/20/2023 1:40 PM EST DIFFERENTIAL, AUTOMATED Routine 10/20/19 24 1:40 PM EST CBC (WITH DIFF) Routine 10/20/2023 1:40 PM EST PHOSPHORUS Routine 10/20/2023 1:40 PM EST MAGNESIUM Routine 10/20/2023 1:40 PM EST BASIC METABOLIC PANEL Routine 10/20/2023 1:40 PM EST ECHO COMPLETE [...] have questions please contact the health medicare compliance auditor that requested your imaging first. ? Electronically signed by: Liang Padilla MD, [facility] ??([phone]), at 10/22/2023 8:51 AM Narrative 10/22/2023 8:51 [...] who have questions please contactthe health medicare compliance auditor that requested your imaging first. Electronically signed by: Liang Padilla MD, [facility]([phone]), at 10/22/2023 8:51 AM Dilip Berumen MD IMG DX ORDERABLES * (ABNORMAL) Differential, Automated (10/22/2023 2:41 AM EST) Neutrophil % 71.9 % [facility] Neutrophil Absolute 6.59(H) 1.70 - 6.10 x10(3)/ L [facility] Lymph % 19.1 % [facility] Lymphocytes Abs 1.8 0.9 - 3.2 x10(3)/ L [facility] Monocyte % 7.9 % [facility] Monocyte Abs 0.7 0.3 - 0.9 x10(3)/ L [facility] Eos % 0.7 % [facility] Eosinophils Abs 0.1 0.0 - 0.4 x10(3)/[facility] [address] [facility] Basophil % 0.2 % [facility] Baso Absolute 0.0 0.0 - 0.1 x10(3)/[facility] [address] LABORATORY Immature Gran % 0.20 % [facility] Comment: Immature granulocytes(IG's)percentage and absolute count will include metamyelocytes, myelocytes, and promyelocytes. Blood smears from CBCs yielding IG's will be scanned manually for concordance. If this scan disagrees with the automated IG or if promyelocytes are noted, a manual differential will be performed. Immature Gran Absolute 0.02 0.00 - 0.04 x10(3)/ L [facility] Blood 10/22/2023 2:41 AM EST 10/22/2023 2:41 AM EST Narrative Resulting Agency Comment Spec In Lab Clifton Segundo MD HEMATOLOGY ORDERABLE S [facility] [place] [address] * (ABNORMAL) Hemogram (10/22/2023 2:41 AM EST) White Blood Cell 9.2 4.0 - 9.5 x10(3)/mc L [facility] Red Blood Cell 4.11 4.00 - 5.21 x10(6)/[facility] [address] [facility] Hemoglobin 12.9 11.7 - 15.5 g/dL [facility] Hematocrit 38.4 35.7 - 45.8 % [facility] Mean Cell Volume 93.4 82.6 - 94.4 fL [facility] Mean Cell Hemoglobin 31.4 27.1 - 32.0 pg [facility] Mean Cell Hemoglobin Concentration 33.6 31.7 - 35.0 g/dL [facility] Platelet 190 145 - 357 x10(3)/mc L [facility] RDW Standard Deviation 48.7(H) 37.0 - 46.0 fL [facility] RDW coefficient of variation 14.1 11.5 - 14.1 % [facility] Mean Platelet Volume 10.5 7.6 - 12.9 fL [facility] NRBC% auto 0.0 % [facility] NRBC Absolute 0.000 0.000 - 0.000 x10(3)/mc L [facility] Blood 10/22/2023 2:41 AM EST 10/22/2023 2:41 AM EST Narrative Resulting Agency Comment Spec In Lab Clifton Segundo MD HEMATOLOGY ORDERABLE S [facility] [place] [address] * (ABNORMAL) Basic Metabolic Panel (non-fasting) (10/22/2023 2:41 AM EST) Glucose 115 65 - 199 mg/dL [facility] Comment:Diabetes: >=200 mg/d L plus symptoms Blood Urea Nitrogen 21(H) 8 - 18 mg/dL [facility] Creatinine 1.12 0.70 - 1.20 mg/dL [facility] Sodium 142 135 - 145 mmol/L [facility] Potassium 3.8 3.5 - 5.0 mmol/L [facility] Comment: Please note: ??Patients with WBC >100,000 may have falsely elevated Potassium levels. ??For accurate Potassium quantification in these patients send serum separator tube (gold top) for subsequent determinations. ??Contact the Clinical Chemistry Laboratory if there are any questions. Chloride 107 98 - 107 mmol/L [facility] Carbon Dioxide 23 22 - 31 mmol/L [facility] Anion Gap 12 5 - 15 mmol/L [facility] Calcium 9.1 8.5 - 10.5 mg/dL [facility] Est Glomerular Filtration Rate 56(L) >=60 mL/min/1. 73 m?? [facility] Comment: This patient's estimated GFR [...] MD CHEMISTRY ORDERABLES Performing Organization Address [facility] de Phone Number [facility] [place] [address] * Phosphorus (10/22/2023 2:41 AM EST) Phosphorus 4.3 2.5 - 4.5 mg/dL [facility] Blood 10/22/2023 2:41 AM EST 10/22/2023 2:41 AM EST Narrative Resulting Agency Comment Spec In Lab Glenn Miranda MD CHEMISTRY ORDERABLES Performing Organization Address [facility] de Phone Number [facility] [place] [address] * (ABNORMAL) Magnesium (10/22/2023 2:41 AM EST) Magnesium 0.66(L) 0.69 - 1.07 mmol/L [facility] Blood 10/22/2023 2:41 AM EST 10/22/2023 2:41 AM EST Narrative Resulting Agency Comment Spec In Lab Glenn Miranda MD CHEMISTRY ORDERABLES Performing Organization Address City/[facility] Co de Phone Number [facility] [place] [address] * POCT Glucose (10/21/2023 9:43 PM EST) Glucose, POC 131 65 - 199 mg/dL [facility] Comment: Supplemental ranges: <140 mg/dL before meals <180 mg/dL all other times of the day Blood 10/21/2023 9:43 PM EST 10/21/2023 9:43 PM EST Humberto Lynn MD POINT OF CARE TEST ORDERABLES [facility] [place] [address] * XR Chest One View (10/21/2023 8:35 [...] have questions please contact the health medicare compliance auditor that requested your imaging first. ? Narrative [...] who have questions please contactthe health medicare compliance auditor that requested your imaging first. Electronically signed by: Liang Padilla MD, [facility]([phone]), at 10/22/2023 8:45 AM Humberto Lynn MD IMG DX ORDERABLES * POCT Glucose (10/21/2023 3:33 PM EST) [facility] Signature Glucose, POC 75 65 - 199 mg/dL [facility] Comment: Supplemental ranges: <140 mg/dL before meals <180 mg/dL all other times of the day Blood 10/21/2023 3:33 PM EST 10/21/2023 3:33 PM EST Glenn Miranda MD POINT OF CARE TEST O RDSETH Performing Organization Address City/State/[facility] Co de Phone Number [facility] [place] [address] * ELECTROPHYSIOLOGY PROCEDURE (10/21/2023 3:04 PM EST) Anatomical Region Laterality Modality Other Narrative 10/24/2023 12:54 PM EST Table formatting from the original result was not included. Images from the original result were not included. Manager Marketing: Dilip Berumen MD Fellow: Gera Martell MD [...] the entire procedure. Lead and Generator Data Incident Response Coordinator Model # Serial # Generator [employer] [id number] Atrial Lead [employer] [id number] Ventricular Lead [employer] [id number] Pace / Sense Data Sensed wave (mV) [...] this procedure. Dilip Berumen MD, PhD, [facility] Cardiac Electrophysiology Dilip Berumen MD EP PROCEDURE ORDERAB LES * POCT Glucose (10/21/2023 11:31 AM EST) Glucose, POC 104 65 - 199 mg/dL [facility] Comment: Supplemental ranges: <140 mg/dL before meals <180 mg/dL all other times of the day Blood 10/21/2023 11:3 1 AM EST 10/21/2023 11:31 AM EST Glenn Miranda MD POINT OF CARE TEST O RDERABLES Performing Organization Address [facility]/ZIP Co de Phone Number [facility] [place] [address] * (ABNORMAL) Basic Metabolic Panel (non-fasting) (10/21/2023 7:55 AM EST) Glucose 114 65 - 199 mg/dL [facility] Comment:Diabetes: >=200 mg/d L plus symptoms Blood Urea Nitrogen 23(H) 8 - 18 mg/dL [facility] Creatinine 1.18 0.70 - 1.20 mg/dL [facility] Sodium 143 135 - 145 mmol/L [facility] Potassium 4.2 3.5 - 5.0 mmol/L [facility] Comment: Please note: ??Patients with WBC >100,000 may have falsely elevated Potassium levels. ??For accurate Potassium quantification in these patients send serum separator tube (gold top) for subsequent determinations. ??Contact the Clinical Chemistry Laboratory if there are any questions. Chloride 111(H) 98 - 107 mmol/L [facility] Carbon Dioxide 21(L) 22 - 31 mmol/L [facility] Anion Gap 11 5 - 15 mmol/L [facility] Calcium 10.1 8.5 - 10.5 mg/dL [facility] Est Glomerular Filtration Rate 52(L) >=60 mL/min/1. 73 m?? [facility] Comment: This patient's estimated GFR [...] Miranda MD CHEMISTRY ORDERABLES Performing Organization Address City/[facility]/ZIP Co de Phone Number [facility] [place] [address] * POCT Glucose (10/21/2023 7:54 AM EST) Glucose, POC 107 65 - 199 mg/dL [facility] Comment: Supplemental ranges: <140 mg/dL before meals <180 mg/dL all other times of the day Blood 10/21/2023 7:54 AM EST 10/21/2023 7:54 AM EST Glenn Miranda MD POINT OF C[place] [address] * Differential, Automated (10/21/2023 6:04 AM EST) Pathologist [facility] Neutrophil % 56.2 % [facility] Neutrophil Absolute 3.81 1.70 - 6.10 x10(3)/[facility] LAB[facility] Lymph % 33.4 % [facility] Lymphocytes Abs 2.3 0.9 - 3.2 x10(3)/[facility] Monocyte % 9.0 % [facility] Monocyte Abs 0.6 0.3 - 0.9 x10(3)/[facility] Eos % 0.9 % [facility] Eosinophils Abs 0.1 0.0 - 0.4 x10(3)/[facility] Basophil % 0.4 % [facility] Baso Absolute 0.0 0.0 - 0.1 x10(3)/[facility] Immature Gran % 0.10 % [facility] Comment: Immature granulocytes(IG's)percentage and absolute count will include metamyelocytes, myelocytes, and promyelocytes. Blood smears from CBCs yielding IG's will be scanned manually for concordance. If this scan disagrees with the automated IG or if promyelocytes are noted, a manual differential will be performed. Immature Gran Absolute 0.01 0.00 - 0.04 x10(3)/[facility] Blood 10/21/2023 6:04 AM EST 10/21/2023 6:21 AM EST Narrative Resulting Agency Comment Spec In Lab Clifton Segundo MD HEMATOLOGY ORDERABLE S [facility] [place] [address] * (ABNORMAL) Hemogram (10/21/2023 6:04 AM EST) White Blood Cell 6.8 4.0 - 9.5 x10(3)/mc L [facility] Red Blood Cell 4.06 4.00 - 5.21 x10(6)/mc L [facility] Hemoglobin 12.6 11.7 - 15.5 g/dL [facility] Hematocrit 38.1 35.7 - 45.8 % [facility] Mean Cell Volume 93.8 82.6 - 94.4 fL [facility] Mean Cell Hemoglobin 31.0 27.1 - 32.0 pg [facility] Mean Cell Hemoglobin Concentration 33.1 31.7 - 35.0 g/dL [facility] Platelet 211 145 - 357 x10(3)/mc L [facility] RDW Standard Deviation 50.4(H) 37.0 - 46.0 fL [facility] RDW coefficient of variation 14.5(H) 11.5 - 14.1 % [facility] Mean Platelet Volume 10.9 7.6 - 12.9 fL [facility] NRBC% auto 0.0 % [facility] NRBC Absolute 0.000 0.000 - 0.000 x10(3)/mc L [facility] Blood 10/21/2023 6:04 AM EST 10/21/2023 6:21 AM EST Narrative Resulting Agency Comment Spec In Lab Clifton Segundo MD HEMATOLOGY ORDERABLE S [facility] [place] [address] * Phosphorus (10/21/2023 6:04 AM EST) Phosphorus 4.5 2.5 - 4.5 mg/dL [facility] Comment:result rechecked-EL Blood 10/21/2023 6:04 AM EST 10/21/2023 6:21 AM EST Narrative Resulting Agency Comment Spec In Lab Glenn Miranda MD CHEMISTRY ORDERABLES Performing Organization Address [facility] de Phone Number [facility] [place] [address] * Magnesium (10/21/2023 6:04 AM EST) Magnesium 0.70 0.69 - 1.07 mmol/L [facility] Blood 10/21/2023 6:04 AM EST 10/21/2023 6:21 AM EST Narrative Resulting Agency Comment Spec In Lab Glenn Miranda MD CHEMISTRY ORDERABLES Performing Organization Address [facility] Phone Number [facility] [place] [address] * POCT Glucose (10/20/2023 9:06 PM EST) Glucose, POC 116 65 - 199 mg/dL [facility] Comment: Supplemental ranges: <140 mg/dL before meals <180 mg/dL all other times of the day Blood 10/20/2023 9:06 PM EST 10/20/2023 9:06 PM EST Elle Tristan MD POINT OF CARE T EST ORDERABLES Performing Organization Address [facility] de Phone Number [facility] [place] [address] * POCT Glucose (10/20/2023 4:50 PM EST) Glucose, POC 94 65 - 199 mg/dL [facility] Comment: Supplemental ranges: <140 mg/dL before meals <180 mg/dL all other times of the day Blood 10/20/2023 4:50 PM EST 10/20/2023 4:50 PM EST Elle Tristan MD POINT OF CARE T EST ORDERABLES Performing Organization Address [facility] Co de Phone Number [facility] [place] [address] * Differential, Automated (10/20/2023 1:40 PM EST) Neutrophil % 42.4 % [facility] Neutrophil Absolute 2.79 1.70 - 6.10 x10(3)/[facility] Lymph % 48.1 % [facility] Lymphocytes Abs 3.2 0.9 - 3.2 x10(3)/[facility] Monocyte % 8.2 % [facility] Monocyte Abs 0.5 0.3 - 0.9 x10(3)/[facility] Eos % 0.8 % [facility] Eosinophils Abs 0.0 0.0 - 0.4 x10(3)/[facility] Basophil % 0.3 % [facility] Baso Absolute 0.0 0.0 - 0.1 x10(3)/[facility] Immature Gran % 0.20 % [facility] Comment: Immature granulocytes(IG's)percentage and absolute count will include metamyelocytes, myelocytes, and promyelocytes. Blood smears from CBCs yielding IG's will be scanned manually for concordance. If this scan disagrees with the automated IG or if promyelocytes are noted, a manual differential will be performed. Immature Gran Absolute 0.01 0.00 - 0.04 x10(3)/[facility] Blood 10/20/2023 1:40 PM EST 10/20/2023 1:57 PM EST Narrative Resulting Agency Comment Spec In Lab Clifton Segundo MD HEMATOLOGY ORDERABLE S [facility] [place] [address] * (ABNORMAL) Hemogram (10/20/2023 1:40 PM EST) White Blood Cell 6.6 4.0 - 9.5 x10(3)/mc L [facility] Red Blood Cell 4.08 4.00 - 5.21 x10(6)/mc L [facility] Hemoglobin 12.6 11.7 - 15.5 g/dL [facility] Hematocrit 37.4 35.7 - 45.8 % [facility] Mean Cell Volume 91.7 82.6 - 94.4 fL [facility] Mean Cell Hemoglobin 30.9 27.1 - 32.0 pg [facility] Mean Cell Hemoglobin Concentration 33.7 31.7 - 35.0 g/dL [facility] Platelet 228 145 - 357 x10(3)/mc L [facility] RDW Standard Deviation 48.5(H) 37.0 - 46.0 fL [facility] RDW coefficient of variation 14.3(H) 11.5 - 14.1 % [facility] Mean Platelet Volume 10.9 7.6 - 12.9 fL [facility] NRBC% auto 0.0 % [facility] NRBC Absolute 0.000 0.000 - 0.000 x10(3)/mc L [facility] Blood 10/20/2023 1:40 PM EST 10/20/2023 1:57 PM EST Narrative Resulting Agency Comment Spec In Lab Clifton Segundo MD HEMATOLOGY ORDERABLE S Performing Organization Address City/[facility]/ZIP Co de Phone Number [facility] [place] [address] * (ABNORMAL) Phosphorus (10/20/2023 1:40 PM EST) Phosphorus 1.6(L) 2.5 - 4.5 mg/dL [facility] Blood 10/20/2023 1:40 PM EST 10/20/2023 1:57 PM EST Narrative Resulting Agency Comment Spec In Lab Elle Tristan MD CHEMISTRY ORDER EDUAR [facility] [place] [address] * Magnesium (10/20/2023 1:40 PM EST) Magnesium 0.71 0.69 - 1.07 mmol/L [facility] Blood 10/20/2023 1:40 PM EST 10/20/2023 1:57 PM EST Narrative Resulting Agency Comment Spec In Lab Elle Tristan MD CHEMISTRY ORDER EDUAR [facility] [place] [address] * (ABNORMAL) Basic Metabolic Panel (non-fasting) (10/20/2023 1:40 PM EST) Glucose 92 65 - 199 mg/dL [facility] Comment:Diabetes: >=200 mg/d L plus symptoms Blood Urea Nitrogen 23(H) 8 - 18 mg/dL [facility] Creatinine 1.04 0.70 - 1.20 mg/dL [facility] Sodium 145 135 - 145 mmol/L [facility] Potassium 3.9 3.5 - 5.0 mmol/L [facility] Comment: Please note: ??Patients with WBC >100,000 may have falsely elevated Potassium levels. ??For accurate Potassium quantification in these patients send serum separator tube (gold top) for subsequent determinations. ??Contact the Clinical Chemistry Laboratory if there are any questions. Chloride 110(H) 98 - 107 mmol/L [facility] Carbon Dioxide 20(L) 22 - 31 mmol/L [facility] Anion Gap 15 5 - 15 mmol/L [facility] Calcium 9.9 8.5 - 10.5 mg/dL [facility] Est Glomerular Filtration Rate 61 >=60 mL/min/1. 73 m?? [facility] Comment: This patient's estimated GFR [...] Lab Elle Tristan MD CHEMISTRY ORDER EDUAR [facility] [place] [address] * ECHO COMPLETE W CONTRAST (10/20/2023 11:32 AM EST) EF 67 HEART[facility] SYSTEM Anatomical Region Laterality Modality Cardiac Other 10/20/2023 10:3 4 AM EST Narrative 10/20/2023 1:32 PM EST 1 [place] [address] ? Echocardiogram Report Name: ANA KIM L ? Study Date: 10/20/2023 10:34 AMBP: 138/56 mmHg ? Patient Location: [facility] CV24 A : 1960 ? Height: 65.5 in ? Account: [id number] Age: 63 yrs ? Weight: 170 lb Gender: Female ?BSA: 1.9 m2 Ordering Physician: ELLE TRISTAN Referring Physician: DONI HERBERT Exam Location: [facility]. Interpretation Summary Left ventricular size and systolic function is normal. The left ventricular ejection fraction is 67% by Elliott's biplane. There are no segmental wall motion abnormalities. Right ventricular systolic function is normal. No significant valvular disease. No prior studies for comparison. Procedure Complete-[id number]. Image enhancement Optison was used for left [...] Luis Alfredo Velazquez MD - 10/20/2023 1 [place] [address] Echocardiogram Report Name: KIM FUNES Study Date: 0:34 AMBP: 138/56 mmHg Patient Location: [address] : 1960 Height: 65.5 in Account: [id number] Age: 63 yrs Weight: 170 lb Gender: Female BSA: 1.9 m2 Ordering Physician: ELLE TRISTAN Referring Physician: DONI HERBERT Exam Location: [facility]. Interpretation Summary Left ventricular size and systolic function is normal. The leftventricular ejection fraction is 67% by Elliott's biplane. There are no segmental wallmotion abnormalities. Right ventricular systolic function is normal. No significant valvular disease. No prior studies for comparison. Procedure Complete-[id number]. Image enhancement Optison was used for left [...] Medication 1345 (New Bag - Provider: Alyssa L Janki, RN)1445 (Stopped - Provider: Alyssa [...] Sánchez RN) 0858 (Given - Provider: Gracie Harding, FRANCESCA)1310 (NOV Hold - Provider: Admin Adt - Reason: Transfer to a Procedural area)1517 (NOV Unhold - Provider: Admin Adt)213 (Given - Provider: Marcio Sibley RN) 0829 [...] provider supervision and verbal order., EP (Intra-Procedure), Routine, Indication for (Active or Suspected): Prophylaxis 1400 (Hold - Provider: Gracie Harding RN [...] of tube = 37.5 grams.), Routine 1310 ([facility] Hold - Provider: Admin Adt - Reason: Transfer to a Procedural area)1517 ([facility] Unhold - Provider: Admin Adt) lidocaine (Xylocaine) 1% (10 mg/mL) injection 3 mg 3 mg (0.3 mL), Subcutaneous, ONCE PRN, 1 dose, Starting on Fri10/20/23 at 1304, Until Fri10/22/23 at 1321, for discomfort with PIV insertion, Routine 1310 ([facility] Hold - Provider: Admin Adt - Reason: Transfer to a Procedural area)1517 ([facility] Unhold - Provider: Admin Adt) magnesium oxide (Mag-Ox) tablet 800 mg 800 mg, Oral, DAILY PRN, Starting on Fri10/20/23 at 1434, Until Fri10/22/23 at 1321, Hypomagnesemia, Administer for serum magnesium of 0.5 - 0.79 mMol/L, Routine 1637 (Given - Provider: Alyssa Shearer, RN) 1310 ([facility] Hold - Provider: Admin Adt - Reason: Transfer to a Procedural area)151 ([facility] Unhold - Provider: Admin Adt) 0615 (Given [...] last 24 to 72 hours., Routine 1310 ([facility] Hold - Provider: Admin Adt - Reason: Transfer to a Procedural area)1517 ([facility] Unhold - Provider: Admin Adt) perflutren protein-A [...] - Reason: Transfer to a Procedural area)1517 ([facility] Unhold - Provider: Admin Adt) sodium chloride [...] - Reason: Transfer to a Procedural area)1517 ([facility] Unhold - Provider: Admin Adt) Linked Groups [...] Routine documented in this encounter Care Teams Vp Scientific Affairs Relationship Specialty Start Date End Date Marcio Devlin DO [address] [place] [address] PCP - General Family Medicine 11/11/17 documented as of this encounter
--- OUTSIDE RECORDS SUMMARY | 2024-06-14 15:27 | XMS_ITS | Encounter Summary ---
Author Organization [facility] Address [facility] [place] [address] Care Team Providers Care Barrel Header Name Role Phone Marcio Devlin DO Primary Care Provider [phone] Reason for Visit * Auth/Cert (Routine) Specialty Diagnoses / Procedures Referred By Contac t Referred To Contact Diagnoses Complete heart block Bradycardia Procedures EMERGENCY IPI Elle Tristan MD [facility] [place] [address] [facility] Referral ID Status Reason Start Date Expiration Date Visits Re quested Visits Authorized [id number] 1 1 Encounter Details Date Type Department Care Team (Late st Contact Info) Description 10/20/2023 9:01 AM EST - 10/22/2023 11:16 AM EST [place] [address] Elle Tristan MD [facility] [place] [address] Glenn Miranda MD [facility] [place] [address] Humberto Lynn MD [facility] [address] [place] [address] CHB (complete heart block); Folliculitis Discharge Disposition: [...] No 10/21/2023 Housing Stability Vital Sign Answer Eplon e Recorded Unable to Pay for Housing in the Last Year Not o n file 10/21/2023 In the last 12 months, how many places have you lived? 1 10/21/2023 In the last 12 months, was t here a time when you did not have a steady place to sleep or slept in a assisted (including now)? No 10/21/2023 DH IPV Inpatient [...] Kim Funes Patient Age: 63 y.o. Language: Moldovan Race: White Ethnicity: Not nor Admit date: 10/20/2023 Discharge date and time: 10/22/2023 Attending Physician: Humberto Lynn MD Discharge Physician: Humberto Lynn MD ID: Kim Funes is a 63 y.o. female w/ PMH of ulcerative colitis, ankylosing spondylitis, HTN and HLD who presented to [facility] for symptomatic bradycardia in the [...] spondylitis. PCP Contact Information: Marcio Devlin DO [address] [facility] [place] [address] Pending Studies and Lab Data: none No [...] 09/19/08 (Dr. Shady Luz at [facility]) for surveillance for dysplasia. Areas of [...] 2020 - severe involvement of L colon, vpmg-ir-nipixamk involvement of transverse and R colon. Worse compared to last exam. SSA at hepatic flexure Adalimumab level (garcía) was 12.7 Switched to Stelara ( 03/21/21, first infusion dose) d/t Lost of response to Humira. Stopped Uceris and sulfasalazine in January 2021. [place] 09/2022 - tubular featureless L colon with [...] , patient went to her PCP at [facility] internal medicine where she was [...] and request was made to transfer to [facility] for ongoing care and possible permanent pacemaker evaluation. Upon interview in the [facility], patient resting comfortably in bed without concern. She states that shehas ongoing fatigue and weakness but denies lightheadedness or dizziness. Hospital Course: Kim Funes was admitted to the Hospital Medicine Service on 10/20/2023. The following issues were addressed and she was discharged on 10/22/2023. #Complete Heart Block w/ Narrow Junctional Escape After admission to the [facility], patient's home beta-rosita was discontinued. After [...] who have questions please contact the health hourly caregiver that requested your imaging first. Electronically signed by: Liang Padilla MD, [facility] ([phone]), at 10/22/2023 8:51 AM XR Chest One View (Exam End: 10/21/2023 8:35 PM) Impression No acute pulmonary findings Thank you for letting us participate in the care of this patient. If you are a health care provider and have any questions regarding this report, please contact the number below. For patients who have questions please contact the health hourly caregiver that requested your imaging first. Discharge Conditions/Prognosis: [...] 10 mg Refills: 0 SUMAtriptan 20 mg/actuation Mertens, Non-Aerosol Commonly known as: IMITREX 1 spray [...] 10 mg Refills: 0 SUMAtriptan 20 mg/actuation Mertens, Non-Aerosol Commonly known as: IMITREX 1 spray [...] Center 11/04/2023 11:00 AM Rosemarie Morrow APRN [facility] GASTRO [facility] 01/06/2024 1:00 PM Gabe Fong MD [facility] RHEUM [facility] Your Inpatient Medical Team at [facility] Name(s) of your inpatient provider(s): Humberto Lynn MD Your Primary Care Provider: Marcio Devlin DO [phone] For questions regarding this document or issues relating to this hospitalization on the Medical Service, please contact your inpatient physician through the [facility] Tar Heater Operator . Issues afterhours and on weekends will be handled by the Hospitalist staff on-call. FINAL ICD/PACEMAKER RECOMMENDATIONS: 1. Standard post implant discharge instructions (see below): 2. Medications as listed above. 3. You may use ice packs over the incision. Make sure to use a wire weaver cloth (such as a towel) in between the [...] F. The office scheduling phone number is [phone]. ARM MOVEMENT RESTRICTIONS POST-IMPLANT For 4-6 Weeks: [...] product, please call the device clinic at [phone]. General Instructions None Future Appointments and Orders Future Appointments and Orders Future Appointments Provider Department Dept Phone 11/04/2023 11:00 AM Rosemarie Morrow APRN Gastroenterology at [facility] Arrive at: Home [phone] To view instructions for your video visit, click here, or visit this website: [email or web address] If you have not previously downloaded the [facility] patient portal software, Tune, or the Stribe maria c, please do so by clicking [...] see: How to Disable Pop-Up Block for [facility] Video Visits Zoom asking for a meeting password? - Exit out of the Zoom program and try the link again 11/04/2023 1:00 PM Lorri Mckinney PA Cardiology at [facility] Arrive at: Filling Mixer Area 4A [phone] 01/06/2024 1:00 PM Gabe Fong MD Rheumatology at [facility] Arrive at: Filling Mixer Area 5C [phone] Inpatient Provider Contact Information: Clarence Pearl MD [...] 10 mg Refills: 0 SUMAtriptan 20 mg/actuation Mertens, Non-Aerosol Commonly known as: IMITREX 1 spray [...] Center 11/04/2023 11:00 AM Rosemarie Morrow APRN [facility] GASTRO [facility] 01/06/2024 1:00 PM Gabe Fong MD [facility] RHEUM [facility] Your Inpatient Medical Team at [facility] Name(s) of your inpatient provider(s): Humberto Lynn MD Your Primary Care Provider: Marcio Devlin DO [phone] For questions regarding this document or issues relating to this hospitalization on the Medical Service, please contact your inpatient physician through the [facility] Tar Heater Operator . Issues afterhours and on weekends will be handled by the Hospitalist staff on-call. FINAL ICD/PACEMAKER RECOMMENDATIONS: 1. Standard post implant discharge instructions (see below): 2. Medications as listed above. 3. You may use ice packs over the incision. Make sure to use a wire weaver cloth (such as a towel) in between the [...] F. The office scheduling phone number is [phone]. ARM MOVEMENT RESTRICTIONS POST-IMPLANT For 4-6 Weeks: [...] product, please call the device clinic at [phone]. documented in this encounter Medications at Time [...] by mouth daily. SUMAtriptan (IMITREX) 20 mg/actuation Mertens, Non-Aerosol 1 spray as needed. 11/03/2017 metFORMIN [...] PCP: Marcio Devlin DO PCP phone number: [phone] Date of Admission: 10/20/2023 ( Hospital Day [...] in the last 7068 hours. Invalid input(s): [id number] Recent Labs 10/21/23 0754 10/20/23 2106 10/20/23 [...] service for ongoing care. Glenn Miranda MD, [facility] Staff Conference Manager * Elle Tristan MD - 10/20/2023 1:46 [...] , patient went to her PCP at [facility] internal medicine where she was [...] and request was made to transfer to [facility] for ongoing care and possible permanent pacemaker evaluation. Upon interview in the [facility], patient resting comfortably in bed without concern. She states that shehas ongoing fatigue and weakness but denies lightheadedness or dizziness. Hospital Course to date After admission to the [facility], patient's home beta-rosita was discontinued. After [...] 09/19/08 (Dr. Shady Luz at [facility]) for surveillance for dysplasia. Areas of [...] iritis Escalated to weekly Humira 11/2019. ADA (quincy) from 6 q 2wk to 12.7 qwk, as well as BID SSZ Colonoscopy Oct 2019: normal rectum, mod-severe inflammation and narrowing from 6-25 cm from the anus, normal remainder of colon. Path: mild active chronic colitis in ac/tc/dc/sc, severe active colitis with ulceration in proximal rectum Colonoscopy December 2020 - severe involvement of L colon, qpyv-td-fsrkgioz involvement of transverse and R colon. Worse compared to last exam. SSA at hepatic flexure Adalimumab level (quincy) was 12.7 Switched to Stelara ( 03/21/21, first infusion dose) d/t Lost of response to Humira. Stopped Uceris and sulfasalazine in January 2021. [place] 09/2022 - tubular featureless L colon with [...] in the last 7068 hours. Invalid input(s): [id number] Heme: No results for input(s): LDH, HAPTOGLOBIN, [...] PCP: Marcio Devlin DO PCP phone number: [phone] Date of Admission: 10/20/2023 ( Hospital Day [...] , patient went to her PCP at [facility] internal medicine where she was [...] and request was made to transfer to [facility] for ongoing care and possible permanent [...] 09/19/08 (Dr. Shady Luz at [facility]) for surveillance for dysplasia. Areas of [...] WITH BX performed by YAQUELIN ESTRADA at [facility] ENDOSCOPY PRO COLONOSCOPY, BIOPSY N/A 03/04/2017 COLONOSCOPY FLEXIBLE, WITH BX (WRVU 3.66) performed by Raúl Austin MD at [facility] ENDOSCOPY PRO COLONOSCOPY, BIOPSY N/A 11/09/2019 COLONOSCOPY FLEXIBLE, WITH BX (WRVU 3.66) performed by Froilan Sahni MD at [facility] ENDOSCOPY PRO COLONOSCOPY, BIOPSY N/A 12/19/2020 COLONOSCOPY FLEXIBLE, WITH BX (WRVU 3.66) performed by Dajuan Rachel MD at [facility] ENDOSCOPY PRO COLONOSCOPY, BIOPSY N/A 09/24/2022 COLONOSCOPY FLEXIBLE, WITH BX (WRVU 3.66) performed by Dajuan Rachel MD at [facility] ENDOSCOPY PRO COLONOSCOPY, BIOPSY N/A 09/18/2023 COLONOSCOPY FLEXIBLE, WITH BX (WRVU 3.56) performed by Dajuan Rachel MD at [facility] ENDOSCOPY PRO COLONOSCOPY, DIAGNOSTIC N/A 11/09/2019 COLONOSCOPY, DIAGNOSTIC performed by Froilan Sahni MD at [facility] ENDOSCOPY PRO COLONOSCOPY, REMV LESN, SNARE 01/02/2011 COLONOSCOPY, POLYPECTOMY, REMOVAL LESION BY SNARE performed by YAQUELIN ESTRADA at [facility] ENDOSCOPY PRO COLONOSCOPY, REMV LESN, SNARE N/A 03/04/2017 COLONOSCOPY, POLYPECTOMY, REMOVAL LESION BY SNARE (WRVU 4.67) performed by Raúl Austin MD at [facility] ENDOSCOPY PRO COLONOSCOPY, REMV LESN, SNARE N/A 09/24/2022 COLONOSCOPY, POLYPECTOMY, REMOVAL LESION BY SNARE (WRVU 4.67) performed by Dajuan Rachel MD at [facility] ENDOSCOPY PRO COMBINED ANT/POST COLPORRHAPHY W CYSTO N/A 03/10/2018 COLPORRHAPHY ANTERIOR-POSTERIOR; INC CYSTOURETHROSCOPY (WRVU 14.44) performed by Liang Fong MD at [facility] MAIN OR PRO REVAGINAL PROLAPSE, UTEROSACRAL N/A 03/10/2018 COLPOPEXY, VAGINAL, INTRAPERITONEAL APPROACH (WRVU 11.66) [facility] SLING OPER STRES INCONTINENCE N/A 03/10/2018 URETHRAL SUSPENSION, SLING\FASCIA OR SYNTHETIC (WRVU 12.13) performed by Liang Fong MD at [facility] MAIN OR PRO VAG HYST, RMV TUBE/OVARY N/A 03/10/2018 HYSTERECTOMY, VAGINAL, REMOVAL TUBE(S) & OR OVARY(S) (WRVU 15.94) performed by Liang Fong MD at [facility] MAIN OR SALPINGECTOMY XR FLUORO INJECTION DRAINAGE JOINT LG RIGHT Right 03/09/2019 XR Fluoro Guided Joint Injection Large Right 03/09/2019 [facility] RAD XRAY Family History Family History [...] Blood Gas) No results for input(s): PHART, QIB1QME, PO2ART, GPL1OFZ, LACTATEVEN, ZHC1IOT, PFRATIOART2 in the last 168 hours. VBG (Venous Blood Gas) No results for input(s): PHVEN, VFT6ACE, PO2VEN, EFZ2YOM, LACTATEVEN in the last 168 hours. Mixed Venous Sat No results for input(s): W5OZDR2 in the last 168 hours. Intake/Output Summary [...] in the last 68 hours. Invalid input(s): [id number] No results for input(s): POCGLU in the last 168 hours. Heme No results for input(s): LDH, HAPTOGLOBIN, URICACID in the last 168 hours. ABG (Arterial Blood Gas) No results for input(s): PHART, VAD2BZP, PO2ART, TKC6RNS, LACTATEVEN, HMC7XVT, PFRATIOART2 in the last 168 hours. VBG (Venous Blood Gas) No results for input(s): PHVEN, WGX0GGE, PO2VEN, XZE5ZGU, LACTATEVEN in the last 168 hours. Mixed Venous Sat No results for input(s): M8UZYD5 in the last 168 hours. Microbiology: Microbiology [...] Jean Roca, DO Internal Medicine, PGY-1 Cardiology, [facility] 10/20/23 2:14 PM * Jason Castro MD - 10/20/2023 10:39 AM EST Inpatient Cardiac Electrophysiology- Initial Consultation Date of Consultation: 10/20/2023 Admit Date: 10/20/2023 Patient Location: [facility] Attending Conference Manager: Riley Reason for Consult: Complete Heart Block [...] by mouth daily. SUMAtriptan (IMITREX) 20 mg/actuation Mertens, Non-Aerosol 1 spray as needed. metFORMIN (GLUCOPHAGE) [...] History: 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 Gera Martell MD Cardiac Electrophysiology Fellow [facility] Pager [phone] 10/20/2023 I met with the patient today [...] above plan. Dr. 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 Current Living Arrangements: home/apartment/condo. Accessibility Concerns:house 1 floor with 3 LISS. Current Functional Ability: Independent, Assistive Person DME used at home: none DME Needed at Discharge: none Patient is insured through: Primary Insurance: [employer] Payor: [facility] / Plan: [facility] PPO / Product Type: *No Product type* / Secondary Insurance: N/A Prescription Coverage: Yes This plan was formulated with input from patient and team. All are in agreement with plan. GHADA Shah, RN Inpatient Airport Utility Worker- Cardiology Office of Care Management Pager #: [phone] * Consult Note - Chepe Russo MD - 10/22/2023 8:00 AM EST Images from the original note were not included. [facility] [address] [address] CARDIAC ELECTROPHYSIOLOGY CONSULT NOTE Patient: Kim Funes [...] 09/19/08 (Dr. Shady Luz at [facility]) for surveillance for dysplasia. Areas of [...] 2020 - severe involvement of L colon, dzfb-yg-obogofwa involvement of transverse and R colon. Worse compared to last exam. SSA at hepatic flexure Adalimumab level (garcía) was 12.7 Switched to Stelara ( 03/21/21, first infusion dose) d/t Lost of response to Humira. Stopped Uceris and sulfasalazine in January 2021. [place] 09/2022 - tubular featureless L colon with [...] She underwent placement of a left sided VCE dual chamber pacemaker on 10/21/23. Procedure was [...] expected position. No pneumothorax. Diagnostics Presenting EGMs: -MACHINIST SET UP Underlying Rhythm: CHB with narrow junctional escape in the 30's Atrial Episodes: None Ventricular Episodes: None Atrial Pacing: <1% Ventricular Pacin% Lead and Generator Data Superintendent Plant Protection Model # Serial # Generator VCE [id number] Atrial Lead VCE [id number] Ventricular Lead [employer] [id number] Pace / Sense Data Sensed wave (mV) [...] She underwent placement of a left sided [employer] dual chamber pacemaker on 10/21/23. Device is functioning well and CXR unremarkable. Recommendations: - Pocket incision is well healed without signs or symptoms of infection - Device is functioning appropriately - Patient will have 10 day follow up here and will then follow up at [facility] Case was discussed with Dr. Berumen who agrees with recommendations as documented above. EP Consult service will continue to follow patient. x Recommendations are above, please page if further consultation required. Chepe Russo Grant Coordinator [phone] Associated attestation - Dilip Berumen MD [...] arrange ~[facility] and ~ 91 day check at [facility]. Dilip Berumen MD, PhD, [facility] Cardiac Electrophysiology 10/22/2023 11:32 AM * [...] 09/19/08 (Dr. Shady Luz at [facility]) for surveillance for dysplasia. Areas of [...] surrogate would be surrogate decision maker per [place] decision making law. (Only good for 180 days) Any patient receiving care in [place] must abide by [place] law. The hierarchy for surrogate decision making [...] (i) The agent with financial power of trust and estates attorney or a conservator appointed in accordance with RSA 464-A. (j) The guardian of the patient???s estate. 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) Prior [...] Current DME: none Home Address confirmed as: [address] [place] [phone] Social & Family Supports: All names listed below confirmed with patient as current and correct Extended Emergency Contact Information Primary Emergency Contact: Lucien Funes Address: [address] [place] [phone] [facility] Mobile Relation: Spouse Secondary Emergency Contact: Olivia [...] points: Addiction likely Health/Prescription Coverage: Primary Insurance: [employer] Payor: [employer] / Plan: [facility] PPO / Product Type: *No Product type* / Secondary Insurance: N/A ; Prescription Coverage: Yes Preferred Pharmacy: [id number] - [place], [place] - [address] [facility] [address] [facility] [address] [facility] [place], [place] - [address] [facility] [address] [facility] [address] [place] Status: Patient is a : No Primary Care Provider confirmed: Marcio Devlin DO [phone] Patient/Caregiver Goals of Treatment: return home with [...] 2:00 PM EDT Appointment Non[place] [phone] Luis Alfredo Velazquez MD [facility] [place] [address] 07/02/2024 4:00 PM EDT Office Visit Cardiology at [address] [phone] [place] PA [facility] [place] [address] 07/02/2024 4:40 PM EDT Office Visit Cardiology at [address] [phone] Luis Alfredo Velazquez MD [facility] [place] [address] 07/18/2024 9:00 AM EST Hospital Encounter Non-[place] [phone] Arrived 07/27/2024 3:30 PM EST Office [place] [phone] Gabe Fong MD [facility] [place] [address] 12/07/2024 2:30 PM EDT TH Visit (TeleHealth) [place] [address] Rosemarie Morrow APRN [facility] [place] [address] documented as of this encounter Procedures Procedure [...] who have questions please contact the health hourly caregiver that requested your imaging first. ? Electronically signed by: Liang Padilla MD, [facility] ??([phone]), at 10/22/2023 8:51 AM Narrative 10/22/2023 8:51 [...] patients who have questions please contactthe health hourly caregiver that requested your imaging first. Electronically signed by: Liang Padilla MD, [facility]([phone]), at 10/22/2023 8:51 AM Dilip Berumen MD IMG DX ORDERABLES * (ABNORMAL) Differential, Automated (10/22/2023 2:41 AM EST) Neutrophil % 71.9 % [facility] Neutrophil Absolute 6.59(H) 1.70 - 6.10 x10(3)/mc L [facility] Lymph % 19.1 % [facility] Lymphocytes Abs 1.8 0.9 - 3.2 x10(3)/ L [facility] Monocyte % 7.9 % [facility] Monocyte Abs 0.7 0.3 - 0.9 x10(3)/mc L [facility] Eos % 0.7 % [facility] Eosinophils Abs 0.1 0.0 - 0.4 x10(3)/mc L [facility] Basophil % 0.2 % [facility] Baso Absolute 0.0 0.0 - 0.1 x10(3)/ L [facility] Immature Gran % 0.20 % [facility] Comment: Immature granulocytes(IG's)percentage and absolute count will include metamyelocytes, myelocytes, and promyelocytes. Blood smears from CBCs yielding IG's will be scanned manually for concordance. If this scan disagrees with the automated IG or if promyelocytes are noted, a manual differential will be performed. Immature Gran Absolute 0.02 0.00 - 0.04 x10(3)/mc L [facility] Blood 10/22/2023 2:41 AM EST 10/22/2023 2:41 AM EST Narrative Resulting Agency Comment Spec In Lab Clifton Segundo MD HEMATOLOGY ORDERABLE S [facility] [place] [address] * (ABNORMAL) Hemogram (10/22/2023 2:41 AM EST) White Blood Cell 9.2 4.0 - 9.5 x10(3)/mc L [facility] Red Blood Cell 4.11 4.00 - 5.21 x10(6)/mc L [facility] Hemoglobin 12.9 11.7 - 15.5 g/dL [facility] Hematocrit 38.4 35.7 - 45.8 % [facility] Mean Cell Volume 93.4 82.6 - 94.4 fL [facility] Mean Cell Hemoglobin 31.4 27.1 - 32.0 pg [facility] Mean Cell Hemoglobin Concentration 33.6 31.7 - 35.0 g/dL [facility] Platelet 190 145 - 357 x10(3)/mc L [facility] RDW Standard Deviation 48.7(H) 37.0 - 46.0 fL [facility] RDW coefficient of variation 14.1 11.5 - 14.1 % [facility] Mean Platelet Volume 10.5 7.6 - 12.9 fL [facility] NRBC% auto 0.0 % [facility] NRBC Absolute 0.000 0.000 - 0.000 x10(3)/ L [facility] Blood 10/22/2023 2:41 AM EST 10/22/2023 2:41 AM EST Narrative Resulting Agency Comment Spec In Lab Clifton Segundo MD HEMATOLOGY ORDERABLE S [facility] [place] [address] * (ABNORMAL) Basic Metabolic Panel (non-fasting) (10/22/2023 2:41 AM EST) Glucose 115 65 - 199 mg/dL [facility] Comment:Diabetes: >=200 mg/d L plus symptoms Blood Urea Nitrogen 21(H) 8 - 18 mg/dL [facility] Creatinine 1.12 0.70 - 1.20 mg/dL [facility] Sodium 142 135 - 145 mmol/L [facility] Potassium 3.8 3.5 - 5.0 mmol/L [facility] Comment: Please note: ??Patients with WBC >100,000 may have falsely elevated Potassium levels. ??For accurate Potassium quantification in these patients send serum separator tube (gold top) for subsequent determinations. ??Contact the Clinical Chemistry Laboratory if there are any questions. Chloride 107 98 - 107 mmol/L [facility] Carbon Dioxide 23 22 - 31 mmol/L [facility] Anion Gap 12 5 - 15 mmol/L [facility] Calcium 9.1 8.5 - 10.5 mg/dL [facility] Est Glomerular Filtration Rate 56(L) >=60 mL/min/1. 73 m?? [facility] Comment: This patient's estimated GFR was [...] Miranda MD CHEMISTRY ORDERABLES Performing Organization Address [facility] de Phone Number [facility] [place] [address] * Phosphorus (10/22/2023 2:41 AM EST) Phosphorus 4.3 2.5 - 4.5 mg/dL [facility] Blood 10/22/2023 2:41 AM EST 10/22/2023 2:41 AM EST Narrative Resulting Agency Comment Spec In Lab Glenn Miranda MD CHEMISTRY ORDERABLES Performing Organization Address [facility] Co de Phone Number [facility] [place] [address] * (ABNORMAL) Magnesium (10/22/2023 2:41 AM EST) Magnesium 0.66(L) 0.69 - 1.07 mmol/L [facility] Blood 10/22/2023 2:41 AM EST 10/22/2023 2:41 AM EST Narrative Resulting Agency Comment Spec In Lab Glenn Miranda MD CHEMISTRY ORDERABLES Performing Organization Address [facility]/ZIP Co de Phone Number [facility] [place] [address] * POCT Glucose (10/21/2023 9:43 PM EST) Glucose, POC 131 65 - 199 mg/dL [facility] Comment: Supplemental ranges: <140 mg/dL before meals <180 mg/dL all other times of the day Blood 10/21/2023 9:43 PM EST 10/21/2023 9:43 PM EST Humberto Lynn MD POINT OF CARE TEST ORDERABLES Performing Organization Address [facility] Co de Phone Number [facility] [place] [address] * XR Chest One View (10/21/2023 8:35 [...] who have questions please contact the health hourly caregiver that requested your imaging first. ? Electronically signed by: Liang Padilla MD, [facility] ??([phone]), at 10/22/2023 8:45 AM Narrative 10/22/2023 8:45 [...] patients who have questions please contactthe health hourly caregiver that requested your imaging first. Electronically signed by: Liang Padilla MD, [facility]([phone]), at 10/22/2023 8:45 AM Humberto Lynn MD IMG DX ORDERABLES * POCT Glucose (10/21/2023 3:33 PM EST) Glucose, POC 75 65 - 199 mg/dL [facility] Comment: Supplemental ranges: <140 mg/dL before meals <180 mg/dL all other times of the day Blood 10/21/2023 3:33 PM EST 10/21/2023 3:33 PM EST Glenn Miranda MD POINT OF CARE TEST O RDERABLES [facility] [place] [address] * ELECTROPHYSIOLOGY PROCEDURE (10/21/2023 3:04 PM EST) Anatomical Region Laterality Modality Other Narrative 10/24/2023 12:54 PM EST Table formatting from the original result was not included. Images from the original result were not included. Oracle Developer: Dilip Berumen MD Fellow: Gera Martell MD [...] the entire procedure. Lead and Generator Data Superintendent Plant Protection Model # Serial # Generator [employer] [id number] Atrial Lead [employer] [id number] Ventricular Lead [employer] [id number] Pace / Sense Data Sensed wave (mV) [...] of this procedure. Dilip Berumen MD, PhD, [facility] Cardiac Electrophysiology Dilip Berumen MD EP PROCEDURE ORDERAB LES * POCT Glucose (10/21/2023 11:31 AM EST) Glucose, POC 104 65 - 199 mg/dL [facility] Comment: Supplemental ranges: <140 mg/dL before meals <180 mg/dL all other times of the day Blood 10/21/2023 11:3 1 AM EST 10/21/2023 11:31 AM EST Glenn Miranda MD POINT OF CARE TEST O IRMA Performing Organization Address City/State/[facility] Co de Phone Number [facility] [place] [address] * (ABNORMAL) Basic Metabolic Panel (non-fasting) (10/21/2023 7:55 AM EST) Glucose 114 65 - 199 mg/dL [facility] Comment:Diabetes: >=200 mg/d L plus symptoms Blood Urea Nitrogen 23(H) 8 - 18 mg/dL [facility] Creatinine 1.18 0.70 - 1.20 mg/dL [facility] Sodium 143 135 - 145 mmol/L [facility] Potassium 4.2 3.5 - 5.0 mmol/L [facility] Comment: Please note: ??Patients with WBC >100,000 may have falsely elevated Potassium levels. ??For accurate Potassium quantification in these patients send serum separator tube (gold top) for subsequent determinations. ??Contact the Clinical Chemistry Laboratory if there are any questions. Chloride 111(H) 98 - 107 mmol/L [facility] Carbon Dioxide 21(L) 22 - 31 mmol/L [facility] Anion Gap 11 5 - 15 mmol/L [facility] Calcium 10.1 8.5 - 10.5 mg/dL [facility] Est Glomerular Filtration Rate 52(L) >=60 mL/min/1. 73 m?? [facility] Comment: This patient's estimated GFR was [...] Miranda MD CHEMISTRY ORDERABLES Performing Organization Address [facility] Co de Phone Number [facility] [place] [address] * POCT Glucose (10/21/2023 7:54 AM EST) Pathologist [facility] Glucose, POC 107 65 - 199 mg/dL [facility] Comment: Supplemental ranges: <140 mg/dL before meals <180 mg/dL all other times of the day Blood 10/21/2023 7:54 AM EST 10/21/2023 7:54 AM EST Glenn Miranda MD POINT OF CARE TEST O RDERABLES Performing Organization Address [facility] Co de Phone Number [facility] [place] [phone] * Differential, Automated (10/21/2023 6:04 AM EST) [facility] Neutrophil % 56.2 % [facility] Neutrophil Absolute 3.81 1.70 - 6.10 x10(3)/[facility] LAB[facility] Lymph % 33.4 % [facility] Lymphocytes Abs 2.3 0.9 - 3.2 x10(3)/[facility] Monocyte % 9.0 % [facility] Monocyte Abs 0.6 0.3 - 0.9 x10(3)/[facility] LABOR[facility] Eos % 0.9 % [facility] Eosinophils Abs 0.1 0.0 - 0.4 x10(3)/[facility] LAB[facility] Basophil % 0.4 % [facility] Baso Absolute 0.0 0.0 - 0.1 x10(3)/[facility] LABORAT[facility] Immature Gran % 0.10 % [facility] Comment: Immature granulocytes(IG's)percentage and absolute count will include metamyelocytes, myelocytes, and promyelocytes. Blood smears from CBCs yielding IG's will be scanned manually for concordance. If this scan disagrees with the automated IG or if promyelocytes are noted, a manual differential will be performed. Immature Gran Absolute 0.01 0.00 - 0.04 x10(3)/mcL [facility] Blood 10/21/2023 6:04 AM EST 10/21/2023 6:21 AM EST Narrative Resulting Agency Comment Spec In Lab Clifton Segundo MD HEMATOLOGY ORDERABLE S Performing Organization Address City/State/[facility] Co de Phone Number [facility] [place] [address] * (ABNORMAL) Hemogram (10/21/2023 6:04 AM EST) White Blood Cell 6.8 4.0 - 9.5 x10(3)/mc L [facility] Red Blood Cell 4.06 4.00 - 5.21 x10(6)/mc L [facility] Hemoglobin 12.6 11.7 - 15.5 g/dL [facility] Hematocrit 38.1 35.7 - 45.8 % [facility] Mean Cell Volume 93.8 82.6 - 94.4 fL [facility] Mean Cell Hemoglobin 31.0 27.1 - 32.0 pg [facility] Mean Cell Hemoglobin Concentration 33.1 31.7 - 35.0 g/dL [facility] Platelet 211 145 - 357 x10(3)/mc L [facility] RDW Standard Deviation 50.4(H) 37.0 - 46.0 fL [facility] RDW coefficient of variation 14.5(H) 11.5 - 14.1 % [facility] Mean Platelet Volume 10.9 7.6 - 12.9 fL [facility] NRBC% auto 0.0 % [facility] NRBC Absolute 0.000 0.000 - 0.000 x10(3)/mc L [facility] Blood 10/21/2023 6:04 AM EST 10/21/2023 6:21 AM EST Narrative Resulting Agency Comment Spec In Lab Clifton Segundo MD HEMATOLOGY ORDERABLE S [facility] [place] [address] * Phosphorus (10/21/2023 6:04 AM EST) Phosphorus 4.5 2.5 - 4.5 mg/dL [facility] Comment:result rechecked-EL Blood 10/21/2023 6:04 AM EST 10/21/2023 6:21 AM EST Narrative Resulting Agency Comment Spec In Lab Glenn Miranda MD CHEMISTRY ORDERABLES Performing Organization Address City/[facility] Co de Phone Number [facility] [place] [address] * Magnesium (10/21/2023 6:04 AM EST) Magnesium 0.70 0.69 - 1.07 mmol/L [facility] Blood 10/21/2023 6:04 AM EST 10/21/2023 6:21 AM EST Narrative Resulting Agency Comment Spec In Lab Glenn Miranda MD CHEMISTRY ORDERABLES Performing Organization Address City/[facility]/ZIP Co de Phone Number [facility] [place] [address] * POCT Glucose (10/20/2023 9:06 PM EST) Glucose, POC 116 65 - 199 mg/dL [facility] Comment: Supplemental ranges: <140 mg/dL before meals <180 mg/dL all other times of the day Blood 10/20/2023 9:06 PM EST 10/20/2023 9:06 PM EST Elle Tristan MD POINT OF CARE T EST ORDERABLES Performing Organization Address City/[facility]/ZIP Co de Phone Number [facility] [place] [address] * POCT Glucose (10/20/2023 4:50 PM EST) Glucose, POC 94 65 - 199 mg/dL [facility] Comment: Supplemental ranges: <140 mg/dL before meals <180 mg/dL all other times of the day Blood 10/20/2023 4:50 PM EST 10/20/2023 4:50 PM EST Elle Tristan MD POINT OF CARE T EST ORDERABLES Performing Organization Address [facility] [place] [address] * Differential, Automated (10/20/2023 1:40 PM EST) Neutrophil % 42.4 % [facility] Neutrophil Absolute 2.79 1.70 - 6.10 x10(3)/[facility] LABORAT[facility] Lymph % 48.1 % [facility] Lymphocytes Abs 3.2 0.9 - 3.2 x10(3)/[facility] LAB[facility] Monocyte % 8.2 % [facility] Monocyte Abs 0.5 0.3 - 0.9 x10(3)/[facility] Eos % 0.8 % [facility] Eosinophils Abs 0.0 0.0 - 0.4 x10(3)/[facility] LAB[facility] Basophil % 0.3 % [facility] Baso Absolute 0.0 0.0 - 0.1 x10(3)/[facility]OR[facility] Immature Gran % 0.20 % [facility] Comment: Immature granulocytes(IG's)percentage and absolute count will include metamyelocytes, myelocytes, and promyelocytes. Blood smears from CBCs yielding IG's will be scanned manually for concordance. If this scan disagrees with the automated IG or if promyelocytes are noted, a manual differential will be performed. Immature Gran Absolute 0.01 0.00 - 0.04 x10(3)/[facility] Blood 10/20/2023 1:40 PM EST 10/20/2023 1:57 PM EST Narrative Resulting Agency Comment Spec In Lab Clifton Segundo MD HEMATOLOGY ORDERABLE S Performing Organization Address [facility] [place] [address] * (ABNORMAL) Hemogram (10/20/2023 1:40 PM EST) White Blood Cell 6.6 4.0 - 9.5 x10(3)/mc L [facility] Red Blood Cell 4.08 4.00 - 5.21 x10(6)/mc L [facility] Hemoglobin 12.6 11.7 - 15.5 g/dL [facility] Hematocrit 37.4 35.7 - 45.8 % [facility] Mean Cell Volume 91.7 82.6 - 94.4 fL [facility] Mean Cell Hemoglobin 30.9 27.1 - 32.0 pg [facility] Mean Cell Hemoglobin Concentration 33.7 31.7 - 35.0 g/dL [facility] Platelet 228 145 - 357 x10(3)/mc L [facility] RDW Standard Deviation 48.5(H) 37.0 - 46.0 fL [facility] RDW coefficient of variation 14.3(H) 11.5 - 14.1 % [facility] Mean Platelet Volume 10.9 7.6 - 12.9 fL [facility] NRBC% auto 0.0 % [facility] NRBC Absolute 0.000 0.000 - 0.000 x10(3)/mc L [facility] Blood 10/20/2023 1:40 PM EST 10/20/2023 1:57 PM EST Narrative Resulting Agency Comment Spec In Lab Clifton Segundo MD HEMATOLOGY ORDERABLE S Performing Organization Address City/[facility]/ZIP Co de Phone Number [facility] [place] [address] * (ABNORMAL) Phosphorus (10/20/2023 1:40 PM EST) Phosphorus 1.6(L) 2.5 - 4.5 mg/dL [facility] Blood 10/20/2023 1:40 PM EST 10/20/2023 1:57 PM EST Narrative Resulting Agency Comment Spec In Lab Elle Tristan MD CHEMISTRY ORDER EDUAR [facility] [place] [address] * Magnesium (10/20/2023 1:40 PM EST) Magnesium 0.71 0.69 - 1.07 mmol/L [facility] Blood 10/20/2023 1:40 PM EST 10/20/2023 1:57 PM EST Narrative Resulting Agency Comment Spec In Lab Elle Tristan MD CHEMISTRY ORDER EDUAR [facility] [place] [address] * (ABNORMAL) Basic Metabolic Panel (non-fasting) (10/20/2023 1:40 PM EST) Glucose 92 65 - 199 mg/dL [facility] Comment:Diabetes: >=200 mg/d L plus symptoms Blood Urea Nitrogen 23(H) 8 - 18 mg/dL [facility] Creatinine 1.04 0.70 - 1.20 mg/dL [facility] Sodium 145 135 - 145 mmol/L [facility] Potassium 3.9 3.5 - 5.0 mmol/L [facility] Comment: Please note: ??Patients with WBC >100,000 may have falsely elevated Potassium levels. ??For accurate Potassium quantification in these patients send serum separator tube (gold top) for subsequent determinations. ??Contact the Clinical Chemistry Laboratory if there are any questions. Chloride 110(H) 98 - 107 mmol/L [facility] Carbon Dioxide 20(L) 22 - 31 mmol/L [facility] Anion Gap 15 5 - 15 mmol/L [facility] Calcium 9.9 8.5 - 10.5 mg/dL [facility] Est Glomerular Filtration Rate 61 >=60 mL/min/1. 73 m?? [facility] Comment: This patient's estimated GFR was [...] Elle Tristan MD CHEMISTRY ORDER EDUAR [facility] [place] [address] * ECHO COMPLETE W CONTRAST (10/20/2023 11:32 AM EST) EF 67 [facility] SYSTEM Anatomical Region Laterality Modality Cardiac Other 10/20/2023 10:3 4 AM EST Narrative 10/20/2023 1:32 PM EST [address] [place] [address] ? Echocardiogram Report Name: KIM FUNES ? Study Date: 10/20/2023 10:34 AMBP: 138/56 mmHg ? Patient Location: [facility] CV24 A : 1960 ? Height: 65.5 in ? Account: [id number] Age: 63 yrs ? Weight: 170 lb Gender: Female ?BSA: 1.9 m2 Ordering Physician: ELLE TRISTAN Referring Physician: DONI HERBERT Exam Location: [facility]. Interpretation Summary Left ventricular size and systolic function is normal. The left ventricular ejection fraction is 67% by Elliott's biplane. There are no segmental wall motion abnormalities. Right ventricular systolic function is normal. No significant valvular disease. No prior studies for comparison. Procedure Complete-[id number]. Image enhancement Optison was used for left [...] Luis Alfredo Velazquez MD - 10/20/2023 [address] [place] [address] Echocardiogram Report Name: KIM FUNES Study Date: 0:34 AMBP: 138/56 mmHg Patient Location: [id number] : 1960 Height: 65.5 in Account: [id number] Age: 63 yrs Weight: 170 lb Gender: Female BSA: 1.9 m2 Ordering Physician: ELLE TRISTAN Referring Physician: DONI HERBERT Exam Location: [facility]. Interpretation Summary Left ventricular size and systolic function is normal. The leftventricular ejection fraction is 67% by Elliott's biplane. There are no segmental wallmotion abnormalities. Right ventricular systolic function is normal. No significant valvular disease. No prior studies for comparison. Procedure Complete-[id number]. Image enhancement Optison was used for left [...] Discontinued, Routine 210 (Given - Provider: Kayla Sánchez, RN) glucagon [...] Routine 1400 (Given - Provider: Alyssa Shearer, FRANCESCA)2103 (Given - Provider: Kayla Sánchez, FRANCESCA) 0858 (Given - Provider: Gracie Harding RN)1310 [...] for discomfort with PIV insertion, Routine 1310 ([facility] Hold - Provider: Admin Adt - Reason: Transfer to a Procedural area)1517 ([facility] Unhold - Provider: Admin Adt) magnesium oxide (Mag-Ox) tablet 800 mg 800 mg, Oral, DAILY PRN, Starting on Fri10/20/23 at 1434, Until Fri10/22/23 at 1321, Hypomagnesemia, Administer for serum magnesium of 0.5 - 0.79 mMol/L, Routine 1637 (Given - Provider: Alyssa Shearer, FRANCESCA) 1310 ([facility] Hold - Provider: Admin Adt - Reason: Transfer to a Procedural area)1517 ([facility] Unhold - Provider: Admin Adt) 0615 (Given [...] last 24 to 72 hours., Routine 1310 ([facility] Hold - Provider: Admin Adt - Reason: Transfer to a Procedural area)1517 ([facility] Unhold - Provider: Admin Adt) perflutren protein-A [...] Routine documented in this encounter Care Teams Barrel Header Relationship Specialty Start Date End Date Marcio Devlin DO [address] [place] [address] PCP - General Family Medicine 11/11/17 documented as of this encounter
--- OUTSIDE RECORDS SUMMARY | 2024-06-14 15:28 | XMS_ITS | Encounter Summary ---
Author Organization [facility] [place] [address] Care Team Providers Care Web Design Specialist Name Role Phone Marcio Devlin DO Primary Care Provider [phone] Reason for Visit * Reason Comments Follow-up Encounter Details Date Type Department Care Team (Late st Contact Info) Description 03/06/2023 9:30 AM EDT Office [place] [address] Gabe Fong MD [facility] [place] [address] Ulcerative colitis without complications, unspecified location; Ankylosing [...] 2:00 PM EDT Appointment Non-[place] [phone] Luis Alfredo Velazquez MD [facility] [place] [address] 07/02/2024 4:00 PM EDT Office Visit Cardiology at [address] [phone] Mars Green PA [facility] [place] [address] 07/02/2024 4:40 PM EDT Office Visit Cardiology at [address] [phone] Luis Alfredo Velazquez MD [facility] [place] [address] 07/18/2024 9:00 AM EST Hospital Encounter Non-[place]vasive [place] [address] Arrived 07/27/2024 3:30 PM EST Office [place] [address] Gabe Fong MD [facility] [place] [address] 12/07/2024 2:30 PM EDT TH Visit (TeleHealth) [place] [phone] Rosemarie Morrow APRN [facility] [address] documented as of this encounter Visit Diagnoses Diagnosis Ulcerative colitis without complications, unspecified location Ankylosing spondylitis of cervical region Ankylosing spondylitis Medication monitoring encounter Encounter for therapeutic drug monitoring High risk medication use Encounter for long-term (current) use of other medications documented in this encounter Care Teams Web Design Specialist Relationship Specialty Start Date End Date Marcio Devlin DO [address] [place], [place] [address]Est[place] [address] PCP - General Family Medicine 11/11/17 documented as of this encounter
--- OUTSIDE RECORDS SUMMARY | 2024-06-14 15:28 | XMS_ITS | Encounter Summary ---
Author Organization [facility] [place] [address] Care Team Providers Care Trimming Cutter Machine Name Role Phone Marcio Deviln DO Primary Care Provider Encounter Details Date [...] 2:00 PM EDT Appointment Non-[place] [phone] Luis Alfredo Velazquez MD [facility] [place] [address] 07/02/2024 4:00 PM EDT Office Visit Cardiology at [address] [phone] Mars Green PA [facility] [place] [address] 07/02/2024 4:40 PM EDT Office Visit Cardiology at [address] [phone] Luis Alfredo Velazquez MD [facility] [place] [address] 07/18/2024 9:00 AM EST Hospital Encounter Non-[place]vasive [place] [address] Arrived 07/27/2024 3:30 PM EST Office [place] [address] Gabe Fong MD [facility] [place] [address] 12/07/2024 2:30 PM EDT TH Visit (TeleHealth) [place] [address] Rosemarie Morrow APRN [facility] [place] [address] documented as of this encounter Visit Diagnoses Not on filedocumented in this encounter Care Teams Trimming Cutter Machine Relationship Specialty Start Date End Date Marcio Devlin DO [address] [place] [address] PCP - General Family Medicine 11/11/17 documented as of this encounter
--- OUTSIDE RECORDS SUMMARY | 2024-06-14 15:28 | XMS_ITS | Encounter Summary ---
Author Organization [facility] [place] [address] Care Team Providers Care Coagulating Drying Supervisor Name Role Phone Marcio Devlin DO Primary Care Provider [phone] Reason for Visit * Reason Comments Medication Refill Encounter Details Date Type Department Care Team (Late st Contact Info) Description 02/17/2023 Refill [place] [address] Dajuan Rachel MD [facility] [place] [address] Ulcerative pancolitis without complication Social History Tobacco [...] 2:00 PM EDT Appointment Non-Invasive [place] [address] Luis Alfredo Velazquez MD [facility] [place] [address] 07/02/2024 4:00 PM EDT Office Visit Cardiology at [address] [phone] Mars Green PA [facility] [place] [address] 07/02/2024 4:40 PM EDT Office Visit Cardiology at [address] [phone] Luis Alfredo Velazquez MD [facility] [address] [place], [place] [phone] 07/18/2024 9:00 AM EST Hospital Encounter Non-Invasive [place] [address] Arrived 07/27/2024 3:30 PM EST Office Visit Rheumatology at [place] [phone] Gabe Fong MD [facility] [place] [address] 12/07/2024 2:30 PM EDT TH Visit (TeleHealth) [place] [address] Rosemarie Morrow APRN [facility] [place] [address] documented as of this encounter Visit Diagnoses Diagnosis Ulcerative pancolitis without complication documented in this encounter Care Teams Coagulating Drying Supervisor Relationship Specialty Start Date End Date Marcio Devlin DO [address] [place] [address] PCP - General Family Medicine 11/11/17 documented as of this encounter
--- OUTSIDE RECORDS SUMMARY | 2024-06-14 15:28 | XMS_ITS | Encounter Summary ---
Author Organization [facility] [place] [address] Care Team Providers Care Manager Benefit Name Role Phone Marcio Devlin DO Primary Care Provider [phone] Reason for Referral * Occupational Therapy (Routine) - Closed Specialty Diagnoses / Procedures Referred By Missy escalera Referred To Contact Occupational Therapy Diagnoses Inflammatory arthropathy Arthralgia of both hands Camila Alex MD [facility] [place] [address] [facility] [address] [place] [address] Referral ID Status Reason Start Date Expiration Date V isits Requested Visits Authorized [id number] Closed Evaluate and Treat 01/28/2023 01/28/2024 100 100 Encounter Details Date Type Department Care Team (Latest Contact Info) Description 01/28/2023 2:30 PM EDT Procedure [place] [address] Camila Alex MD [facility] [place] [address] Ankylosing spondylitis of cervical region; [...] and Musculoskeletal Ultrasound Note Rheum History Dr Fnog patient UC associated on stelara Dx in [...] Images are available on the Rheumatology Image Hot Metal Mixer Operator Archive. Images of the right hand demonstrate [...] 2:00 PM EDT Appointment Non-Invasive [place] [address] Luis Alfredo Velazquez MD [facility] [place] [address] 07/02/2024 4:00 PM EDT Office Visit Cardiology at [address] [address] Mars Green PA [facility] [place] [address] 07/02/2024 4:40 PM EDT Office Visit Cardiology at [address] [address] Luis Alfredo Velazquez MD [facility] [place] [address] 07/18/2024 9:00 AM EST Hospital Encounter Non-Invasive [place] [address] Arrived 07/27/2024 3:30 PM EST Office [place] [address] Gabe Fong MD [facility] [address] 12/07/2024 2:30 PM EDT TH Visit (TeleHealth) [place] [address] Rosemarie Morrow APRN [facility] [place] [address] Scheduled Referrals Name Type Priority Associated Diagnoses [...] who have questions please contact the health rn medicare that requested your imaging first. ? Electronically signed by: Anusha Ledezma MD, [facility] ([phone]), at 01/29/2023 7:29 AM Narrative 01/29/2023 7:29 [...] patients who have questions please contactthe health rn medicare that requested your imaging first. Electronically signed by: Anusha Ledezma MD, [facility]([phone]), at 01/29/2023 7:29 AM Lola Haley DO [...] who have questions please contact the health rn medicare that requested your imaging first. ? Electronically signed by: JERALD CARNEY MD, [facility] ??([phone]), at 01/28/2023 4:20 PM Narrative 01/28/2023 4:20 [...] bilateral sacroiliac joints, present on prior MRI [id number]. No fracture. Pubic symphysis is congruent with [...] patients who have questions please contactthe health rn medicare that requested your imaging first. Electronically signed by: JERALD CARNEY MD, [facility]([phone]), at 01/28/2023 4:20 PM Lola Haley DO IM DX ORDERABLES documented [...] spondylitis documented in this encounter Care Teams Manager Benefit Relationship Specialty Start Date End Date Marcio Devlin DO [address] [place] [address] PCP - General Family Medicine 11/11/17 documented as of this encounter
--- OUTSIDE RECORDS SUMMARY | 2024-06-14 15:28 | XMS_ITS | Encounter Summary ---
Author Organization [facility] [place] [address] Care Team Providers Care Corrective Therapy Aide Teacher Name Role Phone Marcio Devlin DO Primary Care Provider [phone] Encounter Details Date Type Department Care Team (Late st Contact Info) Description 10/10/2022 Telephone [place] [address] María Elena Jean, MA Social [...] 2:00 PM EDT Appointment Non-Invasive [place] [phone] Luis Alfredo Velazquez MD [facility] [place] [address] 07/02/2024 4:00 PM EDT Office Visit Cardiology at [address] [address] Mars Green PA [facility] [place] [address] 07/02/2024 4:40 PM EDT Office Visit Cardiology at [address] [address] Luis Alfredo Velazquez MD [facility] [place] [address] 07/18/2024 9:00 AM EST Hospital Encounter Non-Invasive [place]iology [place] [address] Arrived 07/27/2024 3:30 PM EST Office [place] [address] Gabe Fong MD [facility] [place] [address] 12/07/2024 2:30 PM EDT TH Visit (TeleHealth) [place] [address] Rosemarie Morrow, SKIP [facility] [place] [address] documented as of this encounter Visit Diagnoses Not on filedocumented in this encounter Care Teams Corrective Therapy Aide Teacher Relationship Specialty Start Date End Date Marcio Devlin DO [address] [place] [address] PCP - General Family Medicine 11/11/17 documented as of this encounter
--- OUTSIDE RECORDS SUMMARY | 2024-06-14 15:28 | XMS_ITS | Encounter Summary ---
Author Organization [facility] [place] [address] Care Team Providers Care Residential Service Technician Name Role Phone Marcio Devlin DO Primary Care Provider [phone] Encounter Details Date Type Department Care Team (Late st Contact Info) Description 03/21/2023 Orders Only [place] [address] Sabrina Casarez RN Social History Tobacco Use [...] 2:00 PM EDT Appointment Non-[place] [address] Luis Alfredo Velazquez MD [facility] [place] [address] 07/02/2024 4:00 PM EDT Office Visit Cardiology at [address] [phone] Mars Green PA [facility] [place] [address] 07/02/2024 4:40 PM EDT Office Visit Cardiology at [address] [phone] Luis Alfredo Velazquez MD [facility] [place] [address] 07/18/2024 9:00 AM EST Hospital Encounter Non-[place] [address] Arrived 07/27/2024 3:30 PM EST Office Visit Rheumatology at [place] [phone] Gabe Fong MD [facility] [place] [address] 12/07/2024 2:30 PM EDT TH Visit (TeleHealth) [place] [address] Rosemarie Morrow APRN [facility] [place] [address] documented as of this encounter Visit Diagnoses Not on filedocumented in this encounter Care Teams Residential Service Technician Relationship Specialty Start Date End Date Marcio Devlin DO [address] [place] [address] PCP - General Family Medicine 11/11/17 documented as of this encounter
--- OUTSIDE RECORDS SUMMARY | 2024-06-14 15:28 | XMS_ITS | Encounter Summary ---
Author Organization [facility] [place] [address] Care Team Providers Care Laborer Starch Factory Name Role Phone Marcio Devlin DO Primary Care Provider [phone] Reason for Visit * Reason Comments Prior Authorization Rinvoq 15mg Tablet Encounter Details Date Type Department Care Team (Late st Contact Info) Description 03/14/2023 Specialty [place] [address] Thelma Teran, [facility] Social History Tobacco Use Types [...] Kim Funes Patient : 1960 Patient Address: [address] [place] [phone] (home) Medication Name: RINVOQ 15 MG TABLET,EXTENDED RELEASE Medication ID: [id number] Subscriber Insurance: [employer] ([facility]) Subscriber Insurance Comment: Fax: Physician: GABE ADEN Physician Comment: Sent Via: Fax Truong: Ref/Harmeet/YURIY#: EOC ID: [id number] Medication Strength Frequency Requested: Rinvoq 15mg Tablet [...] RINVOQ 15 MG TABLET,EXTENDED RELEASE Medication ID: [id number] Approval Dates: 03/14/2023 to 09/13/2023 Insurance requirements/notes: - Patient must fill with [facility]. Other Notes: None Case/Reference #: [id number] Approval notification Received via: Fax Copay: Unknown - Patient must fill with outside pharmacy Copay assistance: None Copay Notes: NA Insurance mandated Pharmacy: [facility] Fillable at [facility]: No Patient Notified: Left Voicemessage Pharmacy staff will be reaching out to the patient to inform them of their medication's approval [facility]. If applicable, a pharmacist will speak with the patient to offer our specialty pharmacy services and to arrange delivery of their medication. Thelma Teran 03/17/23 10:06 AM documented in this encounter Plan of Treatment Upcoming Encounters Date Type Department Care Team (Late st Contact Info) Description 07/02/2024 2:00 PM EDT Appointment Non-Invasive [place] [phone] Luis Alfredo Velazquez MD [facility] [place] [address] 07/02/2024 4:00 PM EDT Office Visit Cardiology at [address] [phone] Mars Green PA [facility] [place] [address] 07/02/2024 4:40 PM EDT Office Visit Cardiology at [place] [phone] Luis Alfredo Velazquez MD [facility] [place] [address] 07/18/2024 9:00 AM EST Hospital Encounter [place] [address] Arrived 07/27/2024 3:30 PM EST Office [place] [address] Gabe Aden MD [facility] [place] [address] 12/07/2024 2:30 PM EDT TH Visit (TeleHealth) Gastroenterology at [place] [phone] Rosemarie Morrow, [employer] [facility] [place] [address] documented as of this encounter Visit Diagnoses Not on filedocumented in this encounter Care Teams Laborer Starch Factory Relationship Specialty Start Date End Date Marcio Devlin DO [address] [place] [address] PCP - General Family Medicine 11/11/17 documented as of this encounter
--- OUTSIDE RECORDS SUMMARY | 2024-06-14 15:28 | XMS_ITS | Encounter Summary ---
Author Organization [facility] [place] [address] Care Team Providers Care Chartered Financial Analyst Name Role Phone Marcio Devlin DO Primary Care Provider [phone] Encounter Details Date Type Department Care Team [...] No 05/03/2022 Housing Stability Vital Sign Answer Eplon e Recorded In the last 12 months, [...] 2:00 PM EDT Appointment Non-[place] [address] Luis Alfredo Velazquez MD [facility] [place] [address] 07/02/2024 4:00 PM EDT Office Visit Cardiology at [address] [phone] Mars Green PA [facility] [place] [address] 07/02/2024 4:40 PM EDT Office Visit Cardiology at [address] [phone] Luis Alfredo Velazquez MD [facility] [place] [address] 07/18/2024 9:00 AM EST Hospital Encounter Non-[place]vasive [place] [address] Arrived 07/27/2024 3:30 PM EST Office Visit [place] [address] Gabe Fong MD [facility] [place] [address] 12/07/2024 2:30 PM EDT TH Visit (TeleHealth) [place] [address] Rosemarie Morrow APRN [facility] [place] [address] documented as of this encounter Visit Diagnoses Not on filedocumented in this encounter Care Teams Chartered Financial Analyst Relationship Specialty Start Date End Date Marcio Devlin DO [address] [place] [address] PCP - General Family Medicine 11/11/17 documented as of this encounter
--- OUTSIDE RECORDS SUMMARY | 2024-06-14 15:28 | XMS_ITS | Encounter Summary ---
Author Organization [facility] [place] [place] [address] Care Team Providers Care Canary Raiser Name Role Phone Marcio Devlin DO Primary Care Provider [phone] Reason for Visit * Auth/Cert (Routine) Specialty Diagnoses / Procedures Referred By Contlyn t Referred To Contact Diagnoses Restaging UC since changing to Stelara 03/2021 Procedures PRO COLONOSCOPY, DIAGNOSTIC COLONOSCOPY, DIAGNOSTIC Dajuan Rachel MD [facility] [address] [facility] Referral ID Status Reason Start Date Expiration Date Visits Re quested Visits Authorized [id number] 1 1 Encounter Details Date Type Department Care Team (Late st Contact Info) Description 09/24/2022 11:00 AM EST - 09/24/2022 12:00 PM EST [place] [address] Dajuan Rachel MD [facility] [place] [address] COLONOSCOPY FLEXIBLE, WITH BX (WRVU 3.56) Social [...] occurs, please contact your Doctor. Please call [phone] before 8pm Mon-Fri with problems, questions or concerns. If you call after 8pm or on weekends, call the Hospital at [phone] and ask to speak to the Strategic Partner Development Manager forming yardage control operator and the button sewing machine operator will contact that person for [...] any problems. Where can you learn more? [facility] View your After Visit Summary and more online at [email or web address] If you would like to provide feedback about your hospital experience, please call the Office of Patient and Family Relations at . If you have received this After Visit Summary in error, please immediately return it in person to the department, or notify the [facility] Privacy Office by calling toll free at between the hours of 8AM and 5PM to arrange for our retrieval of the documents at no cost to you. Content Version: 12.2 ?? [phone] [employer]. Care instructions adapted under license by [facility]. If you have questions about a medical condition or this instruction, always ask your healthcare professional. [employer] disclaims any warranty or liability for [...] mouth daily. SUMAtriptan (IMITREX) 20 mg/actuation [place], Non-Aerosol 1 spray as needed. 11/03/2017 metFORMIN [...] 8 Weeks. 1 mL 5 02/28/2022 02/17/2023 metoprolol succinate (TOPROL-XL) 100 mg Tablet Sustained [...] puffs into the lungs daily. 02/21/2011 10/07/2023 meclizine (Antivert) 25 mg Tablet TAKE ONE TABLET BY MOUTH TWICE A DAY NEEDED FOR DIZZINESS 01/24/2022 12/02/2022 cyclobenzaprine (Flexeril) 5 mg Tablet Take 1 [...] needed for maintenance 30 g 07/23/2021 10/22/2023 documented as of this encounter Progress Notes * Dajuan Rachel MD - 09/24/2022 1:32 PM EST Kim Funes [address] [place] [phone] October 20, 2022 Dear : Biopsies taken [...] concerns or questions. Sincerely, Freddy Rachel MD Irrigation Managerthread twister Co-Director, [facility] Section of Gastroenterology [place] [address] CC: Marcio Devlin DO [address] [place] [phone] documented in this encounter H&P Notes * [...] 2:00 PM EDT Appointment [place] [phone] Luis Alfredo Velazquez MD [facility] [place] [address] 07/02/2024 4:00 PM EDT Office Visit Cardiology at [address] [phone] [place], [place] [facility] [place] [address] 07/02/2024 4:40 PM EDT Office Visit Cardiology at [address] [phone] Luis Alfredo Velazquez MD [facility] [place] [address] 07/18/2024 9:00 AM EST Hospital Encounter Non-[place] [phone] Arrived 07/27/2024 3:30 PM EST Office [place] [phone] Gabe Fong MD [facility] [place] [address] 12/07/2024 2:30 PM EDT TH Visit (TeleHealth) [place] [phone] Rosemarie Morrow APRN [facility] [place] [address] documented as of this encounter Procedures Procedure [...] 12:29 PM EST Colonoscopy, Remv Lesn, Snare ([id number]) 09/24/2022 12:05 PM EST Ulcerative pancolitis with complication Colonoscopy, Biopsy ([id number]) 09/24/2022 12:05 PM EST Ulcerative pancolitis with complication COLONOSCOPY Routine 09/24/2022 10:54 AM EST documented in this encounter Results * Specimen to Pathology (09/24/2022 12:43 PM EST) AP Specimen 09/24/2022 12:4 3 PM EST 09/24/2022 12:43 PM EST Narrative [facility] - 09/24/2022 12:43 PM EST Specimen requisition ordered. ??Separate Pathology report to follow L Jose Rachel MD PATHOLOGY/CYTOLOGY O [facility] Performing Organization Address City/[facility]/ZIP [place] [address] * Specimen to Pathology (09/24/2022 12:43 PM EST) AP Specimen 09/24/2022 12:4 3 PM EST 09/24/2022 12:43 PM EST Narrative [facility] - 09/24/2022 12:43 PM EST Specimen requisition ordered. ??Separate Pathology report to follow L Jose Rachel MD PATHOLOGY/CYTOLOGY O [facility] Performing Organization Address City/[facility]/ZIP [place] [address] * Specimen to Pathology (09/24/2022 12:43 PM EST) AP Specimen 09/24/2022 12:4 3 PM EST 09/24/2022 12:43 PM EST Narrative [facility] - 09/24/2022 12:43 PM EST Specimen requisition ordered. ??Separate Pathology report to follow L Jose Rachel MD PATHOLOGY/[place] [address] * Specimen to Pathology (09/24/2022 12:43 PM EST) AP Specimen 09/24/2022 12:4 3 PM EST 09/24/2022 12:43 PM EST Narrative [facility] - 09/24/2022 12:43 PM EST Specimen requisition ordered. ??Separate Pathology report to follow L Jose Rachel MD PATHOLOGY/CYTOLOGY O [facility] Performing Organization Address [facility] Co de Phone Number [facility] [place] [address] * Specimen to Pathology (09/24/2022 12:43 PM EST) AP Specimen 09/24/2022 12:4 3 PM EST 09/24/2022 12:43 PM EST Narrative [facility] - 09/24/2022 12:43 PM EST Specimen requisition ordered. ??Separate Pathology report to follow L Jose Rachel MD PATHOLOGY/CYTOLOGY O [facility] Performing Organization Address [facility] [place] [address] * Surgical Pathology Report (09/24/2022 12:29 PM EST) Final Diagnosis [id number] ? Location: 4T; EA11; A The signing [...] MD Verified: ??09/27/2022 17:03 ??Pathologist Performed at: ??-[facility] [place]ology, [place] [address] Real Estate Manager: Dg Brown MD, FCAP, ??CLIA Certificate: [id number] SPECIMEN(S) SUBMITTED A - Targeted biopsies at hepatic flexure, biopsy (4) B - Hepatic flexure polyp, excision (1) C - Targeted biopsies at 37cm, biopsy (4) D - Targeted biopsies at 15cm, biopsy (4) E - Targeted biopsies at ano-rectal junction, biopsy (4) CLINICAL INFORMATION [id number] female with ulcerative colitis SPECIMEN PROCESSING A - Labeled/Fixative: Targeted biopsies at hepatic flexure, formalin. Quantity/Size: Two, 0.2 and 0.3 cm. Tissue Description: Soft, brown-pink tissues. Sections/Processi ng: Submitted en toto ??in 1 cassette labeled A1. B - Labeled/Fixative: Hepatic flexure polyp, formalin. Quantity/Size: Single, 0.7 x 0.7 x 0.1 cm. Tissue Description: Brown-pink strip mucosa. Sections/Processi ng: Inked, bisected and entirely submitted in 1 cassette labeled B1. C - Labeled/Fixative: Targeted biopsies at 37 cm, formalin. Quantity/Size: Two, 0.2 and 0.3 cm. Tissue Description: Soft, brown-pink tissues. Sections/Processi ng: . SPECIMEN PROCESSING Submitted en toto ??in 1 cassette labeled C1. D - Labeled/Fixative: Targeted biopsies at 15 cm, formalin. Quantity/Size: Four, ranging from 0.1-0.3 cm. Tissue Description: Soft, pink-white tissues. Sections/Processi ng: Submitted en toto ??in 1 cassette labeled D1. E - Labeled/Fixative: Targeted biopsies at anorectal junction, formalin. Quantity/Size: Four, ranging from 0.1-0.3 cm. Tissue Description: Soft, brown-pink tissues. Sections/Processi ng: Submitted en toto ??in 1 cassette labeled E1. ??nrl 09/27/2022 5:03 PM EST [facility] GI Biopsy 09/24/2022 12:2 9 [...] L Jose Rachel MD PATHOLOGY/CYTOLOGY Clotilde SOLIS [facility] [place] [id number] [facility] [place] [address] * COLONOSCOPY (09/24/2022 10:54 AM EST) COLONOSCOPY [facility] Endoscopy ___ Procedure Date: 09/24/2022 10:54 AM ? Patient Name: Kim Funes ? [facility]: [id number] ? Date of : 1960 ? Age: 62 ? Order #: [id number] ? Instrument Name: [id number] ? ___ Procedure: ? Colonoscopy Indications: ? [...] preparation was evaluated ? using the BBPS ([place] Bowel ? Preparation Scale) with scores of: [...] RN) documented in this encounter Care Teams Canary Raiser Relationship Specialty Start Date End Date Marcio Devlin DO [address] [place] [address] PCP - General Family Medicine 11/11/17 documented as of this encounter
--- OUTSIDE RECORDS SUMMARY | 2024-06-14 15:28 | XMS_ITS | Encounter Summary ---
Author Organization Pending Sale To [facility] Address [facility] [place] [address] Care Team Providers Care Drawing Kiln Supervisor Name Role Phone Marcio Devlin DO Primary Care Provider [phone] Encounter Details Date Type Department Care Team (Latest Contact Info) Description 10/11/2022 10:00 AM EST TH Visit (TeleHealth) [place] [phone] Gabe Fong MD [facility] [place] [address] Ankylosing spondylitis of cervical region; Ulcerative colitis [...] 2:00 PM EDT Appointment Non-Invasive [place] [phone] Luis Alfredo Velazquez MD [facility] [place] [address] 07/02/2024 4:00 PM EDT Office Visit Cardiology at [place] [phone] [place] [facility] [place] [address] 07/02/2024 4:40 PM EDT Office Visit Cardiology at [place] [address] Luis Alfredo Velazquez MD [facility] [place] [address] 07/18/2024 9:00 AM EST Hospital Encounter Non-Invasive Cardiology Lab [place] [address] Arrived 07/27/2024 3:30 PM EST Office Visit Rheumatology at [place] [address] Gabe Fong MD [facility] [place] [address] 12/07/2024 2:30 PM EDT TH Visit (TeleHealth) Gastroenterology at [place] [address] Rosemarie Morrow APRN [facility] [place] [address] documented as of this encounter Visit Diagnoses [...] Cervicalgia documented in this encounter Care Teams Drawing Kiln Supervisor Relationship Specialty Start Date End Date Marcio Devlin DO [address] [place] [address] PCP - General Family Medicine 11/11/17 documented as of this encounter
--- OUTSIDE RECORDS SUMMARY | 2024-06-14 15:28 | XMS_ITS | Encounter Summary ---
Author Organization [facility] [place] [address] Care Team Providers Care Salesperson Automobiles Name Role Phone Marcio Devlin DO Primary Care Provider [phone] Encounter Details Date Type Department Care Team (Latest Contact Info) Description 12/02/2022 9:00 AM EDT TH Visit (TeleHealth) [place] [address] Gabe Fong MD [facility] [address] [place] [place] [address] Ankylosing spondylitis of cervical region; Ulcerative colitis [...] as of this encounter Progress Notes * aGbe Fong MD - 12/02/2022 9:00 AM EDT [...] increased work of breathing AO x3 Hands [id number] PIP swelling pointing to the PIPs as [...] methotrexate-will not help with axial symptoms -Ultrasound hftc-[id number]-cc clinic High risk medication high feng of [...] 2:00 PM EDT Appointment Non-Invasive Cardiology Lab [place] [phone] Luis Alfredo Velazquez MD [facility] [place] [address] 07/02/2024 4:00 PM EDT Office Visit Cardiology at [place] [phone] [place] [facility] [place] [address] 07/02/2024 4:40 PM EDT Office Visit Cardiology at [place] [phone] Luis Alfredo Velazquez MD [facility] [place] [address] 07/18/2024 9:00 AM EST Hospital Encounter Non-Invasive Cardiology Lab [place] [phone] Arrived 07/27/2024 3:30 PM EST Office Visit Rheumatology at [place] [phone] Gabe Fong MD [facility] [place] [address] 12/07/2024 2:30 PM EDT TH Visit (TeleHealth) [place] [address] Rosemarie Morrow APRN [facility] [place] [address] documented as of this encounter Visit Diagnoses Diagnosis Ankylosing spondylitis of cervical region Ankylosing spondylitis Ulcerative colitis without complications, unspecified location High risk medication use Encounter for long-term (current) use of other medications Primary osteoarthritis of both hips Primary localized osteoarthrosis, pelvic region and thigh 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 Arthralgia of both hands documented in this encounter Care Teams Salesperson Automobiles Relationship Specialty Start Date End Date Marcio Devlin DO [address] [place], [place] [address] [place] [address] PCP - General Family Medicine 11/11/17 documented as of this encounter
--- OUTSIDE RECORDS SUMMARY | 2024-06-14 15:28 | XMS_ITS | Encounter Summary ---
Author Organization [facility] Address [facility] [place] [address] Care Team Providers Care Etl Application Developer Name Role Phone Marcio Devlin DO Primary Care Provider [phone] Encounter Details Date Type Department Care Team (Late st Contact Info) Description 02/05/2023 Orders [place] [address] Dajuan Rachel MD [facility] [place] [address] Social History Tobacco Use Types Packs/Day Years [...] 2:00 PM EDT Appointment Non-Invasive Cardiology Lab [address] Luis Alfredo Velazquez MD [facility] [place] [address] 07/02/2024 4:00 PM EDT Office Visit Cardiology at [place] [phone] [place] [facility] [address] [place], [place] [phone] 07/02/2024 4:40 PM EDT Office Visit Cardiology at [place] [phone] Luis Alfredo Velazquez MD [facility] [place] [address] 07/18/2024 9:00 AM EST Hospital Encounter Non-[place]vasive [place] [address] Arrived 07/27/2024 3:30 PM EST Office Visit Rheumatology at [place] [phone] Gabe Fong MD [facility] [place] [place] [address] 12/07/2024 2:30 PM EDT TH Visit (TeleHealth) [place] [address] Rosemarie Mororw APRN [facility] [place] [address] documented as of this encounter Visit Diagnoses Not on filedocumented in this encounter Care Teams Etl Application Developer Relationship Specialty Start Date End Date Marcio Devlin DO [address] [place] [address] PCP - General Family Medicine 11/11/17 documented as of this encounter
--- OUTSIDE RECORDS SUMMARY | 2024-06-14 15:28 | XMS_ITS | Encounter Summary ---
Author Organization [facility] [place] [address] Care Team Providers Care Client Associate Name Role Phone Marcio Devlin DO Primary Care Provider [phone] Encounter Details Date Type Department Care Team (Late st Contact Info) Description 03/17/2023 Orders [place] [phone] Jarad Srivastava PA [address] [place] [address] Medication monitoring encounter Social History Tobacco Use [...] 2:00 PM EDT Appointment Non-[place] [phone] Luis Alfredo Velazquez MD [facility] [place] [address] 07/02/2024 4:00 PM EDT Office Visit Cardiology at [address] [phone] [place] [facility] [place] [address] 07/02/2024 4:40 PM EDT Office Visit Cardiology at [address] [phone] Luis Alfredo Velazquez MD [facility] [place] [address] 07/18/2024 9:00 AM EST Hospital Encounter Non-[place]vasive [place] [address] Arrived 07/27/2024 3:30 PM EST Office [place] [phone] Gabe Fong MD [facility] [place] [address] 12/07/2024 2:30 PM EDT TH Visit (TeleHealth) [place] [phone] Rosemarie Morrow APRN [facility] [place] [address] documented as of this encounter Visit Diagnoses Diagnosis Medication monitoring encounter Encounter for therapeutic drug monitoring documented in this encounter Care Teams Client Associate Relationship Specialty Start Date End Date Marcio Devlin DO [address] [place] [address] PCP - General Family Medicine 11/11/17 documented as of this encounter
--- OUTSIDE RECORDS SUMMARY | 2024-06-14 15:28 | XMS_ITS | Encounter Summary ---
Author Organization [facility] [place] [address] Care Team Providers Care Medicaid Nurse Name Role Phone Marcio Devlin DO Primary Care Provider [phone] Encounter Details Date Type Department Care Team (Late st Contact Info) Description 09/10/2022 Telephone [place] [address] Lisa Dallas RN Social History [...] have an active approval with filling at [facility]. Kim will call [facility] again and see if she can get her medication. Requested she called back if not the case. She was due 08/20 for a dose. documented in this encounter Plan of Treatment Upcoming Encounters Date Type Department Care Team (Late st Contact Info) Description 07/02/2024 2:00 PM EDT Appointment [place] [phone] Luis Alfredo Velazquez MD [facility] [place] [address] 07/02/2024 4:00 PM EDT Office Visit Cardiology at [address] [phone] [place] [facility] [place] [address] 07/02/2024 4:40 PM EDT Office [place] [address] Luis Alfredo Velazquez MD [facility] [place] [address] 07/18/2024 9:00 AM EST Hospital Encounter Non-[place] [address] Arrived 07/27/2024 3:30 PM EST Office [place] [address] Gabe Fong MD [facility] [place] [address] 12/07/2024 2:30 PM EDT TH Visit (TeleHealth) Gastroenterology at [place] [phone] Rosemarie Morrow, SKIP [facility] [place] [address] documented as of this encounter Visit Diagnoses Not on filedocumented in this encounter Care Teams Medicaid Nurse Relationship Specialty Start Date End Date Marcio Devlin DO [address] [place] [address] PCP - General Family Medicine 11/11/17 documented as of this encounter
--- OUTSIDE RECORDS SUMMARY | 2024-06-14 15:28 | XMS_ITS | Encounter Summary ---
Author Organization [facility] [place] [address] Care Team Providers Care Panel Assembler Name Role Phone Marcio Devlin DO Primary Care Provider Reason for Visit * Occupational Therapy (Routine) - Closed Specialty Diagnoses / Procedures Referred By Missy escalera Referred To Contact Occupational Therapy Diagnoses Inflammatory arthropathy Arthralgia of both hands Camila Alex MD [facility] [place] [address] Htr Rehab Ot [address] [place] [address] Referral ID Status Reason Start Date Expiration Date V isits Requested Visits Authorized [id number] Closed Evaluate and Treat 01/28/2023 01/28/2024 100 100 Encounter Details Date Type Department Care Team (Late st Contact Info) Description 02/25/2023 8:30 AM EDT Office Visit Occupational Therapy at [facility] [address] [place] [address] Sowmya Delatorre, OT Inflammatory arthropathy [...] Code Treatment Time: 0 minutes OCCUPATIONAL PROFILE: iKm Funes is a 62 y.o. year old [...] 1. 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 Do heavy cam maker (eg wash baez, wash floors) Mild difficulty [...] move your arm freely (eg playing frisbee, [employer] [place], etc) Mild difficulty 20. Manage transportation needs [...] Small Finger 0/90 0/86 0/60 DPC Strength: Multiple Tube Winding Machine Operator Testing with Dynamometer setting #2 Pinch Testing with Pinch Gauge Right Left Multiple Tube Winding Machine Operator setting 2 44.9, 39.5, 49.4 47.3, 44.2, 48.7 Multiple Tube Winding Machine Operator Average 44.6 46.7 Truong 14 14 3 Pt 14 10 Tip 14 10 Treatment Today: Evaluation MODERATE Complexity (28029) Educated patient in etiology and biomechanics as [...] and DASH for specific functional deficits. Juliana Fuens is able to demonstrate home exercises with [...] 2:00 PM EDT Appointment Non-Invasive [place] [phone] Luis Alfredo Velazquez MD [facility] [place] [address] 07/02/2024 4:00 PM EDT Office Visit Cardiology at [place] [address] [place] [facility] [place] [address] 07/02/2024 4:40 PM EDT Office Visit Cardiology at [place] [address] Luis Alfredo Velazquez MD [facility] [place] [address] 07/18/2024 9:00 AM EST Hospital Encounter Non-Invasive Cardiology Lab [place] [address] Arrived 07/27/2024 3:30 PM EST Office Visit Rheumatology at [place] [address] Gabe Fong MD [facility] [place] [address] 12/07/2024 2:30 PM EDT TH Visit (TeleHealth) Gastroenterology at [place] [address] Rosemarie Morrow, SKIP [facility] [place] [address] Scheduled Referrals Name Type Priority Associated Diagnoses Order Schedule Referral to Occupational Therapy Outpatient Referral Routine Inflammatory arthropathy Arthralgia of both hands Ordered: 01/28/2023 documented as of this encounter Visit Diagnoses Diagnosis Inflammatory arthropathy Arthropathy, unspecified, site unspecified documented in this encounter Care Teams Panel Assembler Relationship Specialty Start Date End Date Marcio Devlin DO [address] [place] [address] PCP - General Family Medicine 2/27/18 documented as of this encounter
--- OUTSIDE RECORDS SUMMARY | 2024-06-14 15:28 | XMS_ITS | Encounter Summary ---
Author Organization [facility] Address [facility] [place] [address] Care Team Providers Care Fine Grade Operator Name Role Phone Marcio Devlin DO Primary Care Provider [phone] Encounter Details Date Type Department Care Team (Latest Contact Info) Description 04/04/2023 10:30 AM EDT TH Visit (TeleHealth) [place] [address] Gabe Fong MD [facility] [address] [place] [address] High risk medication use; Medication monitoring encounter; [...] 2:00 PM EDT Appointment Non-[place]vasive [place] [address] Luis Alfredo Velazquez MD [facility] [place] [address] 07/02/2024 4:00 PM EDT Office Visit Cardiology at [address] [address] [place], [place] [facility] [place] [address] 07/02/2024 4:40 PM EDT Office Visit Cardiology at [address] [phone] Luis Alfredo Velazquez MD [facility] [place] [address] 07/18/2024 9:00 AM EST Hospital Encounter Non-Invasive [place] [address] Arrived 07/27/2024 3:30 PM EST Office [place] [address] Gabe Fong MD [facility] [place] [address] 12/07/2024 2:30 PM EDT TH Visit (TeleHealth) Gastroenterology at [place] [phone] Rosemarie Morrow APRN [facility] [place] [address] documented as of this encounter Visit Diagnoses Diagnosis High risk medication use Encounter for long-term (current) use of other medications Medication monitoring encounter Encounter for therapeutic drug monitoring Ulcerative colitis without complications, unspecified location Ankylosing spondylitis of cervical region Ankylosing spondylitis Primary osteoarthritis of both hips Primary localized osteoarthrosis, pelvic region and thigh documented in this encounter Care Teams Fine Grade Operator Relationship Specialty Start Date End Date Marcio Devlin DO [address] [place] [address] PCP - General Family Medicine 11/11/17 documented as of this encounter
--- OUTSIDE RECORDS SUMMARY | 2024-06-14 15:28 | XMS_ITS | Encounter Summary ---
Author Organization [facility] [place] [address] Care Team Providers Care Media Reconciliation Specialist Name Role Phone Marcio Devlin DO Primary Care Provider [phone] Encounter Details Date Type Department Care Team (Late st Contact Info) Description 03/25/2023 [place] [address] Francisca Olivas, [facility] Social History Tobacco Use Types Packs/Day Years [...] 2:00 PM EDT Appointment Non-[place] [phone] Luis Alfredo Velazquez MD [facility] [place] [address] 07/02/2024 4:00 PM EDT Office Visit Cardiology at [address] [phone] Mars Green [place] [facility] [place] [address] 07/02/2024 4:40 PM EDT Office Visit Cardiology at [address] [phone] Luis Alfredo Velazquez MD [facility] [place] [address] 07/18/2024 9:00 AM EST Hospital Encounter Non-Invasive [place] [address] Arrived 07/27/2024 3:30 PM EST Office Visit Rheumatology at [address] Gabe Fong MD [facility] [place] [address] 12/07/2024 2:30 PM EDT TH Visit (TeleHealth) [place] [address] Rosemarie Morrow APRN [facility] [place] [address] documented as of this encounter Visit Diagnoses Not on filedocumented in this encounter Care Teams Media Reconciliation Specialist Relationship Specialty Start Date End Date Marcio Devlin DO [address] [place] [address] PCP - General Family Medicine 11/11/17 documented as of this encounter
--- OUTSIDE RECORDS SUMMARY | 2024-06-14 15:28 | XMS_ITS | Encounter Summary ---
Author Organization [facility] [place] [address] Care Team Providers Care Alterations Supervisor Name Role Phone Marcio Devlin DO [...] 2:00 PM EDT Appointment Non-[place] [phone] Luis Alfredo Velazquez MD [facility] [place] [address] 07/02/2024 4:00 PM EDT Office Visit Cardiology at [address] [phone] Mars Green PA [facility] [place] [address] 07/02/2024 4:40 PM EDT Office Visit Cardiology at [address] [phone] Luis Alfredo Velazquez MD [facility] [place] [address] 07/18/2024 9:00 AM EST Hospital Encounter Non-[place]vasive [place] [address] Arrived 07/27/2024 3:30 PM EST Office [place] [address] Gabe Fong MD [facility] [place] [address] 12/07/2024 2:30 PM EDT TH Visit (TeleHealth) [place] [address] Rosemarie Morrow APRN [facility] [place] [address] documented as of this encounter Visit Diagnoses Not on filedocumented in this encounter Care Teams Alterations Supervisor Relationship Specialty Start Date End Date Marcio Devlin DO [address] [place] [address] PCP - General Family Medicine 11/11/17 documented as of this encounter
--- OUTSIDE RECORDS SUMMARY | 2024-06-14 15:28 | XMS_ITS | Encounter Summary ---
Author Organization [facility] [place] [address] Care Team Providers Care Portable Track Crew Chief Name Role Phone Marcio Devlin DO Primary Care Provider [phone] Reason for Visit * Reason Comments Specialty Pharmacy Review Upadacitinib ( Rinvoq) 15mg Tablet Encounter Details Date Type Department Care Team (Late st Contact Info) Description 03/06/2023 Specialty [place] [address] Alison Ortiz, [facility] Social History Tobacco Use Types [...] Ortiz - 03/06/2023 11:59 PM EDT [facility] has completed a benefits investigation for Kim Funes to review their eligibility to fill at [facility]. Per patient's medication list they are prescribed Rinvoq and the medication is not able to be filled at the [facility]. Kim Funes must fill with [facility] under current insurance plan's mandate. documented in this encounter Plan of Treatment Upcoming Encounters Date Type Department Care Team (Late st Contact Info) Description 07/02/2024 2:00 PM EDT Appointment Non[place] [phone] Luis Alfredo Velazquez MD [facility] [place] [address] 07/02/2024 4:00 PM EDT Office Visit Cardiology at [facility] [address] [place], [place] [phone] Mars Green PA [facility] [place] [address] 07/02/2024 4:40 PM EDT Office Visit Cardiology at [place] [address] Luis Alfredo Velazquez MD [facility] [place] [address] 07/18/2024 9:00 AM EST Hospital Encounter Non-Invasive Cardiology Lab [place] [address] Arrived 07/27/2024 3:30 PM EST Office Visit Rheumatology at [place] [address] Gabe Fong MD [facility] [place] [address] 12/07/2024 2:30 PM EDT TH Visit (TeleHealth) Gastroenterology at [address] Rosemarie Morrow APRN [facility] [place] [address] documented as of this encounter Visit Diagnoses Not on filedocumented in this encounter Care Teams Portable Track Crew Chief Relationship Specialty Start Date End Date Marcio Devlin DO [address] [place] [address] PCP - General Family Medicine 11/11/17 documented as of this encounter
--- OUTSIDE RECORDS SUMMARY | 2024-06-14 15:28 | XMS_ITS | Encounter Summary ---
Author Organization [facility] Address [place] [address] Care Team Providers Care Textile Colorist Dyer Name Role Phone Marcio Devlin DO Primary Care Provider [phone] Encounter Details Date Type Department Care Team (Late st Contact Info) Description 12/06/2022 Ancillary Procedure Radiology Library at [facility] [place] [place] [phone] Marcio Devlin DO [address] [place], [place] [phone] Social History Tobacco Use Types Packs/Day Years [...] 2:00 PM EDT Appointment Non-[place] [address] Luis Alfredo Velazquez MD [facility] [place] [address] 07/02/2024 4:00 PM EDT Office Visit Cardiology at [place] [phone] Mars Green PA [facility] [place] [address] 07/02/2024 4:40 PM EDT Office Visit Cardiology at [place] [phone] Luis Alfredo Velazquez MD [facility] [place] [address] 07/18/2024 9:00 AM EST Hospital Encounter Non-[place]vasive [place] [address] Arrived 07/27/2024 3:30 PM EST Office [place] [address] Gabe Fong MD [facility] [place] [address] 12/07/2024 2:30 PM EDT TH Visit (TeleHealth) [place] [address] Rosemarie Morrow APRN [facility] [place] [address] documented as of this encounter Procedures Procedure Name Priority Date/Time Associated Diagnosis Comments FILM LIBRARY STORAGE ONLY DX HAND Routine 12/06/2022 12:00 AM EDT documented in this encounter Results * Film Library- Storage Only DX Hand (12/06/2022 12:00 AM EDT) Narrative [facility] - 12/09/2022 10:02 AM EDT This exam is auto-finalizing. It's purpose is for storage only. Marcio Devlin DO [facility] [place]M LIBRARY ORD ERABLES [place], [place] documented in this encounter Visit Diagnoses Not on filedocumented in this encounter Care Teams Textile Colorist Dyer Relationship Specialty Start Date End Date Marcio Devlin DO [address] [place] [address] PCP - General Family Medicine 11/11/17 documented as of this encounter
--- OUTSIDE RECORDS SUMMARY | 2024-06-14 15:28 | XMS_ITS | Encounter Summary ---
Author Organization [facility] [place] [address] Care Team Providers Care Jewel Sawyer Name Role Phone Marcio Devlin DO Primary Care Provider [phone] Encounter Details Date Type Department Care Team [...] 2:00 PM EDT Appointment Non[place] [phone] Luis Alfredo Velazquez MD [facility] [place] [address] 07/02/2024 4:00 PM EDT Office Visit Cardiology at [address] [phone] Mars Green PA [facility] [place] [address] 07/02/2024 4:40 PM EDT Office Visit Cardiology at [address] [phone] Luis Alfredo Velazquez MD [facility] [place] [address] 07/18/2024 9:00 AM EST Hospital Encounter Non[place] [address] Arrived 07/27/2024 3:30 PM EST Office [place] [address] Gabe Fong MD [facility] [place] [address] 12/07/2024 2:30 PM EDT TH Visit (TeleHealth) [place] [address] Rosemarie Morrow APRN [facility] [place] [address] documented as of this encounter Visit Diagnoses Not on filedocumented in this encounter Care Teams Jewel Sawyer Relationship Specialty Start Date End Date Marcio Devlin DO [address] [place] [address] PCP - General Family Medicine 11/11/17 documented as of this encounter
--- OUTSIDE RECORDS SUMMARY | 2024-06-14 15:28 | XMS_ITS | Encounter Summary ---
Author Organization [facility] [place] [address] Care Team Providers Care Dental Service Chief Name Role Phone Marcio Devlin DO Primary Care Provider [phone] Reason for Visit * Reason Comments Medication Management Encounter Details Date Type Department Care Team (Late st Contact Info) Description 03/17/2023 Specialty [place] [address] Francisca Olivas, [facility] Social History Tobacco Use Types [...] this encounter Progress Notes * Francisca Olivas [facility] - 03/17/2023 1:58 PM EDT Specialty Pharmacy Initial Consultation; Francisca Olivas [facility] Comprehensive Medication Management (CMM) Kim Stricklandeneuve Diagnosis: [...] yes - pt needs labs sent to [facility] Patient understands no changes to current drug regimen were made at the appointment and that [facility] isprov[facility] recommendations (summary located at top of note) for provider review and follow up. Francisca Olivas RPH 03/17/23 2:04 PM documented in this encounter Plan of Treatment Upcoming Encounters Date Type Department Care Team (Late st Contact Info) Description 07/02/2024 2:00 PM EDT Appointment [place] [phone] Luis Alfredo Velazquez MD [facility] [place] [address] 07/02/2024 4:00 PM EDT Office Visit Cardiology at [address] [phone] Mars Green PA [facility] [place] [address] 07/02/2024 4:40 PM EDT Office Visit Cardiology at [address] [phone] Luis Alfredo Velazquez MD [facility] [place] [address] 07/18/2024 9:00 AM EST Hospital Encounter Non-[place] [address] Arrived 07/27/2024 3:30 PM EST Office Visit [place] [address] Gabe Fong MD [facility] [place] [place] [address] 12/07/2024 2:30 PM EDT TH Visit (TeleHealth) [place] [address] Rosemarie Morrow APRN [facility] [place] [address] documented as of this encounter Visit Diagnoses Not on filedocumented in this encounter Care Teams Dental Service Chief Relationship Specialty Start Date End Date Marcio Devlin DO [address] [place] [address] PCP - General Family Medicine 11/11/17 documented as of this encounter
--- OUTSIDE RECORDS SUMMARY | 2024-06-14 15:28 | XMS_ITS | Encounter Summary ---
Author Organization [facility] Address [facility] [place] [address] Care Team Providers Care Hand Drawer In Helper Name Role Phone Marcio Devlin DO Primary Care Provider [phone] Encounter Details Date Type Department Care Team (Late st Contact Info) Description 01/28/2023 3:18 PM EDT - 01/28/2023 11:59 PM EDT Hospital Encounter XRay at [address] [place] [address] Lola Haley, [facility] [place] [address] Inflammatory arthropathy; Arthralgia of both hands; Ankylosing [...] by mouth daily. SUMAtriptan (IMITREX) 20 mg/actuation [place], Non-Aerosol 1 spray as needed. 11/03/2017 metFORMIN [...] 2:00 PM EDT Appointment Non-[place]vasive [place] [phone] Luis Alfredo Velazquez MD [facility] [place] [address] 07/02/2024 4:00 PM EDT Office Visit Cardiology at [address] [phone] Mars Green PA [facility] [place] [address] 07/02/2024 4:40 PM EDT Office Visit Cardiology at [address] [phone] Luis Alfredo Velazquez MD [facility] [place] [address] 07/18/2024 9:00 AM EST Hospital Encounter Non-Invasive [place] [phone] Arrived 07/27/2024 3:30 PM EST Office [place] [address] Gabe Fong MD [facility] [place] [address] 12/07/2024 2:30 PM EDT TH Visit (TeleHealth) [place] [address] Rosemarie Morrow, [facility] [place] [address] documented as of this encounter Procedures Procedure [...] questions please contact the health critical care rn that requested your imaging first. ? Electronically signed by: Anusha Ledezma MD, [facility] ([phone]), at 01/29/2023 7:29 AM Narrative 01/29/2023 7:29 [...] have questions please contactthe health critical care rn that requested your imaging first. Electronically signed by: Anusha Ledezma MD, [facility]([phone]), at 01/29/2023 7:29 AM Lola Halye DO IMG DX ORDERABLES * XR Sacroiliac [...] questions please contact the health critical care rn that requested your imaging first. ? Electronically signed by: JERALD CARNEY MD, [facility] ??([phone]), at 01/28/2023 4:20 PM Narrative 01/28/2023 4:20 [...] bilateral sacroiliac joints, present on prior MRI [id number]. No fracture. Pubic symphysis is congruent with [...] have questions please contactthe health critical care rn that requested your imaging first. Electronically signed by: JERALD CARNEY MD, [facility]([phone]), at 01/28/2023 4:20 PM Lola Haley DO IMG DX ORDERABLES documented in this encounter Visit Diagnoses Diagnosis Inflammatory arthropathy Arthropathy, unspecified, site unspecified Arthralgia of both hands Ankylosing spondylitis of cervical region Ankylosing spondylitis documented in this encounter Care Teams Hand Drawer In Helper Relationship Specialty Start Date End Date Marcio Devlin DO [address] [place] [address] PCP - General Family Medicine 11/11/17 documented as of this encounter
--- OUTSIDE RECORDS SUMMARY | 2024-06-14 15:28 | XMS_ITS | Encounter Summary ---
Author Organization [place] [address] Care Team Providers Care Swatch Folder Name Role Phone Marcio Devlin DO Primary Care Provider [phone] Reason for Visit * Auth/Cert (Routine) Specialty Diagnoses / Procedures Referred By Contlyn t Referred To Contact Diagnoses Restaging UC since changing to Stelara 03/2021 Procedures PRO COLONOSCOPY, DIAGNOSTIC COLONOSCOPY, DIAGNOSTIC Dajuan Rachel MD [facility] [place] [address] [facility] Referral ID Status Reason Start Date Expiration Date Visits Re quested Visits Authorized [id number] 1 1 Encounter Details Date Type Department Care Team (Latest Contact Info) Description 09/24/2022 9:56 AM EST - 09/24/2022 1:32 PM [facility] Hospital [place] [address] Dajuan Rachel MD [facility] [place] [address] Discharge Disposition: Home Social History Tobacco Use [...] occurs, please contact your Doctor. Please call [phone] before 8pm Mon-Fri with problems, questions or concerns. If you call after 8pm or on weekends, call the Hospital at [phone] and ask to speak to the Heel Reducer emissions testing technician and the soap drier operator will contact that person for [...] any problems. Where can you learn more? [facility] View your After Visit Summary and more online at [email or web address] If you would like to provide feedback about your hospital experience, please call the Office of Patient and Family Relations at . If you have received this After Visit Summary in error, please immediately return it in person to the department, or notify the [facility] Privacy Office by calling toll free at between the hours of 8AM and 5PM to arrange for our retrieval of the documents at no cost to you. Content Version: 12.2 ?? [id number] [employer]. Care instructions adapted under license by [employer]. If you have questions about a medical condition or this instruction, always ask your healthcare professional. [employer] disclaims any warranty or liability for your [...] by mouth daily. SUMAtriptan (IMITREX) 20 mg/actuation Cohagen, Non-Aerosol 1 spray as needed. 11/03/2017 metFORMIN [...] - 09/24/2022 1:32 PM EST Kim Funes [address] [place] [phone] October 20, 2022 Dear : Biopsies taken [...] concerns or questions. Sincerely, Freddy Rachel MD Inventory Control Assistanttransfer machine operator Co-Director, [facility] Section of Gastroenterology [place] [address] CC: aMrcio Devlin, [address] [place] [phone] documented in this encounter H&P Notes * [...] 2:00 PM EDT Appointment [place] [phone] Luis Alfredo Velazquez MD [facility] [place] [address] 07/02/2024 4:00 PM EDT Office Visit Cardiology at [address] [phone] [place], [place] [facility] [place] [address] 07/02/2024 4:40 PM EDT Office Visit Cardiology at [address] [address] Luis Alfredo Velazquez MD [facility] [place] [address] 07/18/2024 9:00 AM EST Hospital Encounter Non-[place] [phone] Arrived 07/27/2024 3:30 PM EST Office [place] [phone] Gabe Fong MD [facility] [place] [address] 12/07/2024 2:30 PM EDT TH Visit (TeleHealth) [place] [phone] Rosemarie Morrow APRN [facility] [place] [address] documented as of this encounter Procedures Procedure [...] 12:29 PM EST Colonoscopy, Remv Lesn, Snare ([id number]) 09/24/2022 12:05 PM EST Ulcerative pancolitis with complication Colonoscopy, Biopsy ([id number]) 09/24/2022 12:05 PM EST Ulcerative pancolitis with complication COLONOSCOPY Routine 09/24/2022 10:54 AM EST documented in this encounter Results * Specimen to Pathology (09/24/2022 12:43 PM EST) AP Specimen 09/24/2022 12:4 3 PM EST 09/24/2022 12:43 PM EST Narrative [facility] - 09/24/2022 12:43 PM EST Specimen requisition ordered. ??Separate Pathology report to follow L Jose Rachel MD PATHOLOGY/CYTOLOGY O IR[facility] Performing Organization Address City/[facility]/[place] [address] * Specimen to Pathology (09/24/2022 12:43 PM EST) AP Specimen 09/24/2022 12:4 3 PM EST 09/24/2022 12:43 PM EST Narrative [facility] - 09/24/2022 12:43 PM EST Specimen requisition ordered. ??Separate Pathology report to follow L Jose Rachel MD PATHOLOGY/CYTOLOGY O IRMA Performing Organization Address City/[facility]/[place] [address] * Specimen to Pathology (09/24/2022 12:43 PM EST) AP Specimen 09/24/2022 12:4 3 PM EST 09/24/2022 12:43 PM EST Narrative [facility] - 09/24/2022 12:43 PM EST Specimen requisition ordered. ??Separate Pathology report to follow L Jose Rachel MD PATHOLOGY/[place] [address] * Specimen to Pathology (09/24/2022 12:43 PM EST) AP Specimen 09/24/2022 12:4 3 PM EST 09/24/2022 12:43 PM EST Narrative [facility] - 09/24/2022 12:43 PM EST Specimen requisition ordered. ??Separate Pathology report to follow L Jose Rachel MD PATHOLOGY/CYTOLOGY O IRMA Performing Organization Address [facility] [place] [address] * Specimen to Pathology (09/24/2022 12:43 PM EST) AP Specimen 09/24/2022 12:4 3 PM EST 09/24/2022 12:43 PM EST Narrative [facility] - 09/24/2022 12:43 PM EST Specimen requisition ordered. ??Separate Pathology report to follow L Jose Rachel MD PATHOLOGY/CYTOLOGY O IR[facility] Performing Organization Address [facility] [place] [address] * Surgical Pathology Report (09/24/2022 12:29 PM EST) Final Diagnosis [id number] ? Location: 4T; EA11; A The signing [...] ??-[facility] Dept. of [place]ology, [place] [address] Pressure Tank Operator: Dg Brown MD, FCAP, ??CLIA Certificate: [id number] SPECIMEN(S) SUBMITTED A - Targeted biopsies at hepatic flexure, biopsy (4) B - Hepatic flexure polyp, excision (1) C - Targeted biopsies at 37cm, biopsy (4) D - Targeted biopsies at 15cm, biopsy (4) E - Targeted biopsies at ano-rectal junction, biopsy (4) CLINICAL INFORMATION 89-zmej-dex female with ulcerative colitis SPECIMEN PROCESSING A [...] 0.2 and 0.3 cm. Tissue Description: Soft, petesr-pink tissues. Sections/Processi ng: . SPECIMEN PROCESSING Submitted [...] labeled E1. ??nrl 09/27/2022 5:03 PM EST [facility] GI Biopsy 09/24/2022 12:2 9 [...] L Jose Rachel MD PATHOLOGY/CYTOLOGY Clotilde SOLIS [facility] [place] [address] [facility] [place] [address] * COLONOSCOPY (09/24/2022 10:54 AM EST) COLONOSCOPY [facility] Endoscopy ___ Procedure Date: 09/24/2022 10:54 AM ? Patient Name: Kim Funes ? [facility]: [id number] ? Date of : 1960 ? Age: 62 ? Order #: [id number] ? Instrument Name: [id number]- [id number] ? ___ Procedure: ? Colonoscopy Indications: ? High risk colon cancer ? surveillance: Ulcerative colitis Patient Profile: ? This is a 62 year old female. This ? patient has ulcerative pancolitis, ? is taking ustekinumab and is ? experiencing mild symptoms. Providers: ? Freddy Rahcel MD, Oksana Mendez, ? [place] Shah Referring [...] preparation was evaluated ? using the BBPS ([place] Bowel ? Preparation Scale) with scores of: [...] RN) documented in this encounter Care Teams Swatch Folder Relationship Specialty Start Date End Date Marcio Devlin DO [address] [place] [address] PCP - General Family Medicine 11/11/17 documented as of this encounter
--- OUTSIDE RECORDS SUMMARY | 2024-06-14 15:28 | XMS_ITS | Encounter Summary ---
Author Organization [facility] Address [facility] [place] [address] Care Team Providers Care County Demonstrator Name Role Phone Marcio Devlin DO Primary Care Provider [phone] Encounter Details Date Type Department Care Team (Late st Contact Info) Description 03/10/2023 Orders [place] [address] Dajuan Rachel MD [facility] [place] [address] Social History Tobacco Use Types Packs/Day Years [...] 2:00 PM EDT Appointment Non-Invasive Cardiology Lab [address] Luis Alfredo Velazquez MD [facility] [place] [address] 07/02/2024 4:00 PM EDT Office Visit Cardiology at [place] [phone] [place] Green [place] [facility] [address] [place], [place] [phone] 07/02/2024 4:40 PM EDT Office Visit Cardiology at [place] [phone] Luis Alfredo Velazquez MD [facility] [address] 07/18/2024 9:00 AM EST Hospital Encounter Non-[place] [address] Arrived 07/27/2024 3:30 PM EST Office Visit Rheumatology at [place] [phone] Gabe Fong MD [facility] [place] [address] 12/07/2024 2:30 PM EDT TH Visit (TeleHealth) [place] [address] Rosemarie Morrow APRN [facility] [place] [address] documented as of this encounter Visit Diagnoses Not on filedocumented in this encounter Care Teams County Demonstrator Relationship Specialty Start Date End Date Marcio Devlin DO [address] [place] [address] PCP - General Family Medicine 11/11/17 documented as of this encounter
--- OUTSIDE RECORDS SUMMARY | 2024-06-14 15:28 | XMS_ITS | Encounter Summary ---
Author Organization [facility] [place] [address] Care Team Providers Care Supercalender Operator Helper Name Role Phone Marcio Devlin DO Primary Care Provider Reason for Visit * Reason Comments Specialty Pharmacy Review Ustekinumab (S telara) 90mg/mL Syringe Encounter Details Date Type Department Care Team (Late st Contact Info) Description 01/28/2023 Specialty [place] [address] Alison Ortiz, [facility] Social History Tobacco Use Types Packs/Day [...] Ortiz - 01/28/2023 11:59 PM EDT The [facility] has completed a benefits investigation for Kim Funes to review their eligibility to fill at [facility]. Per patient's medication list they are prescribed Stelara and the medication is not able to be filled at the [facility]. Kim Funes must fill with Stelara under current insurance plan's mandate. documented in this encounter Plan of Treatment Upcoming Encounters Date Type Department Care Team (Late st Contact Info) Description 07/02/2024 2:00 PM EDT Appointment Non-[place] [phone] Luis Alfredo Velazquez MD [facility] [place] [address] 07/02/2024 4:00 PM EDT Office Visit Cardiology at [place] [address] [place] [facility] [place] [address] 07/02/2024 4:40 PM EDT Office Visit Cardiology at [place] [address] Luis Alfredo Velazquez MD [facility] [place] [address] 07/18/2024 9:00 AM EST Hospital Encounter Non-Invasive Cardiology Lab [place] [address] Arrived 07/27/2024 3:30 PM EST Office Visit Rheumatology at [place] [address] Gabe Fong MD [facility] [place] [address] 12/07/2024 2:30 PM EDT TH Visit (TeleHealth) Gastroenterology at [place] [address] Rosemarie Morrow, SKIP [facility] [place] [address] documented as of this encounter Visit Diagnoses Not on filedocumented in this encounter Care Teams Supercalender Operator Helper Relationship Specialty Start Date End Date Marcio Devlin DO [address] [place] [address] PCP - General Family Medicine 11/11/17 documented as of this encounter
--- OUTSIDE RECORDS SUMMARY | 2024-06-14 15:28 | XMS_ITS | Encounter Summary ---
Author Organization [facility] [place] [address] Care Team Providers Care Auto Glass Technician Name Role Phone Mracio Devlin DO Primary Care Provider [phone] Encounter Details Date Type Department Care Team (Late st Contact Info) Description 03/27/2023 [place] [address] Sabrina Casarez RN Social History [...] ing therapy ----- Message ----- From: Balwinder, Ham Curer Sent: 03/26/2023 3:11 PM EDT To: Gabe Fong MD documented in this encounter Plan of Treatment Upcoming Encounters Date Type Department Care Team (Late st Contact Info) Description 07/02/2024 2:00 PM EDT Appointment Non-[place] [address] Luis Alfredo Velazquez MD [facility] [place] [address] 07/02/2024 4:00 PM EDT Office Visit Cardiology at [place] [address] [place] [facility] [place] [address] 07/02/2024 4:40 PM EDT [place] [address] Luis Alfredo Velazquez MD [facility] [place] [address] 07/18/2024 9:00 AM EST Hospital Encounter Non-Invasive [place] [address] Arrived 07/27/2024 3:30 PM EST Office Visit Rheumatology at [place] [address] Gabe Fong MD [facility] [place] [address] 12/07/2024 2:30 PM EDT TH Visit (TeleHealth) Gastroenterology at [place] [address] Rosemarie Morrow, SKIP [facility] [place] [address] documented as of this encounter Visit Diagnoses Not on filedocumented in this encounter Care Teams Auto Glass Technician Relationship Specialty Start Date End Date Marcio Devlin DO [address] [place] [address] PCP - General Family Medicine 11/11/17 documented as of this encounter
--- OUTSIDE RECORDS SUMMARY | 2024-06-14 15:28 | XMS_ITS | Encounter Summary ---
Author Organization [facility] [place] [address] Care Team Providers Care Batch Dumper Name Role Phone Marcio Devlin DO Primary Care Provider [phone] Reason for Visit * Reason Comments Specialty Pharmacy Review Ustekinumab (S telara) 90mg/mL Syringe Encounter Details Date Type Department Care Team (Late st Contact Info) Description 12/02/2022 Specialty [place] [address] Alison Ortiz, [facility] Social History Tobacco Use Types Packs/Day Years [...] Ortiz - 12/02/2022 11:59 PM EDT The [facility] has completed a benefits investigation for Kim Funes to review their eligibility to fill at [facility]. Per patient's medication list they are prescribed Ustekinumab (Stelara) and the medication is not able to be filled at the [facility]. Kim Funes must fill with [facility] under current insurance plan's mandate. documented in this encounter Plan of Treatment Upcoming Encounters Date Type Department Care Team (Late st Contact Info) Description 07/02/2024 2:00 PM EDT Appointment Non-[place] [phone] Luis Alfredo Velazquez MD [facility] [place] [address] 07/02/2024 4:00 PM EDT Office Visit Cardiology at [place] [phone] [place] [facility] [place] [address] 07/02/2024 4:40 PM EDT Office Visit Cardiology at [place] [address] Luis Alfredo Velazquez MD [facility] [place] [address] 07/18/2024 9:00 AM EST Hospital Encounter Non-[place]vasive [place] [address] Arrived 07/27/2024 3:30 PM EST Office Visit Rheumatology at [place] [address] Gabe Fong MD [facility] [place] [address] 12/07/2024 2:30 PM EDT TH Visit (TeleHealth) [place] [address] Rosemarie Morrow APRN [facility] [place] [address] documented as of this encounter Visit Diagnoses Not on filedocumented in this encounter Care Teams Batch Dumper Relationship Specialty Start Date End Date Marcio Devlin DO [address] [place] [address] PCP - General Family Medicine 11/11/17 documented as of this encounter
--- OUTSIDE RECORDS SUMMARY | 2024-06-14 15:28 | XMS_ITS | Encounter Summary ---
Author Organization [facility] [place] [address] Care Team Providers Care Marketing Underwriter Name Role Phone Marcio Devlin DO Primary Care Provider [phone] Reason for Visit * Reason Comments Specialty Pharmacy Review Ustekinumab (S telara) 90 mg/mL subcutaneous injection Encounter Details Date Type Department Care Team (Late st Contact Info) Description 10/11/2022 Specialty [place] [address] Alison Ortiz, [facility] Social History Tobacco Use Types Packs/Day Years [...] Ortiz - 10/11/2022 11:59 PM EST The [facility] has completed a benefits investigation for Kim Funes to review their eligibility to fill at [facility]. Per patient's medication list they are prescribed Ustekinumab (Stelara) and the medication is not able to be filled at the [facility]. Kim Funes must fill with [facility] under current insurance plan's mandate. documented in this encounter Plan of Treatment Upcoming Encounters Date Type Department Care Team (Late st Contact Info) Description 07/02/2024 2:00 PM EDT Appointment Non-[place] [phone] Luis Alfredo Velazquez MD [facility] [place] [place] [address] 07/02/2024 4:00 PM EDT Office Visit Cardiology at [place] [address] [place] [address] [place] [facility] [place] [address] 07/02/2024 4:40 PM EDT Office Visit Cardiology at [place] [address] Luis Alfredo Velazquez MD [facility] [place] [address] 07/18/2024 9:00 AM EST Hospital Encounter [place] [address] Arrived 07/27/2024 3:30 PM EST Office Visit Rheumatology at [place] [address] Gabe Fong MD [facility] [place] [address] 12/07/2024 2:30 PM EDT TH Visit (TeleHealth) [place] [address] Rosemarie Morrow APRN [facility] [place] [address] documented as of this encounter Visit Diagnoses Not on filedocumented in this encounter Care Teams Marketing Underwriter Relationship Specialty Start Date End Date Marcio Devlin DO [address] [place] [address] PCP - General Family Medicine 11/11/17 documented as of this encounter
--- OUTSIDE RECORDS SUMMARY | 2024-06-14 15:28 | XMS_ITS | Encounter Summary ---
Author Organization [facility] Address [facility] [place] [address] Care Team Providers Care Regional Refrigerated Cdl Truck Driver Name Role Phone Marcio Devlin DO Primary Care Provider Encounter Details Date Type Department Care Team (Late st Contact Info) Description 03/13/2023 [place] [address] Gabe Fong MD [facility] [place] [address] Social History Tobacco Use Types Packs/Day Years [...] PM EDT Appointment Non-Invasive Cardiology Lab [address] Luis Alfredo Velazquez MD [facility] [place] [address] 07/02/2024 4:00 PM EDT Office Visit Cardiology at [place] [phone] [place] [facility] [place] [address] 07/02/2024 4:40 PM EDT Office Visit Cardiology at [place] [phone] Luis Alfredo Velazquez MD [facility] [place] [address] 07/18/2024 9:00 AM EST Hospital Encounter Non-[place]vasive [place] [address] Arrived 07/27/2024 3:30 PM EST Office [place] [address] Gabe Fong MD [facility] [place] [address] 12/07/2024 2:30 PM EDT TH Visit (TeleHealth) [place] [address] Rosemarie Morrow APRN [facility] [place] [address] documented as of this encounter Visit Diagnoses Not on filedocumented in this encounter Care Teams Regional Refrigerated Cdl Truck Driver Relationship Specialty Start Date End Date Marcio Devlin DO [address] [place] [address] PCP - General Family Medicine 11/11/17 documented as of this encounter
--- OUTSIDE RECORDS SUMMARY | 2024-06-14 15:28 | XMS_ITS | Encounter Summary ---
Author Organization [facility] [place] [address] Care Team Providers Care Exit Booth Agent Name Role Phone Marcio Devlin DO Primary Care Provider [phone] Reason for Visit * Reason Comments Prior Authorization Stelara 90mg/ml SOSY Encounter Details Date Type Department Care Team (Late st Contact Info) Description 08/19/2022 Specialty [place] [phone] Tiff Anglin, [facility] [...] this encounter Progress Notes * Tiff Anglin [facility] - 08/19/2022 2:54 PM EST [facility], Medication Prior Authorization Submission Patient: Kim Funes Patient : 1960 Patient Address: [address] [place] [phone] (home) Medication Name: STELARA 90 MG/ML SUBCUTANEOUS SYRINGE Medication ID: [id number] Subscriber Insurance: [employer] ([facility]) Subscriber Insurance Comment: Phone: [phone] Fax: Physician: Dajuan BERRY Physician Comment: Sent Via: Fax Truong: Ref/Case/PA#: [id number] Medication Strength Frequency Requested: Stelara 90mg/ml SOSY, Inject 1ml (90mg) subcutaneously once every 56 days. Qty/Day Supply: New Start: Renewal Diagnosis & ICD-10 Code: Ulcerative pancolitis without complication (K51.00) Patient Notified: No Submission Notes: - PA submitted through Prompt PA for Stelara 90mg/ml SOSY, qty . EOC# [id number] Tiff Anglin CPHT 08/19/22 2:58 PM * Tiff Anglin [facility] - 08/19/2022 2:54 PM EST D Specialty Pharmacy, Prior Authorization Approval Medication Name: STELARA 90 MG/ML SUBCUTANEOUS SYRINGE Medication ID: [id number] Approval Dates: 08/21/2022 to 08/20/2023 Insurance requirements/notes: - Patient mandated to fill with [facility]. Other Notes: - PA approved for Stelara 90mg/ml SOSY, qty through 08/20/23. Case/Reference #: [id number] Approval notification Received via: Fax Copay: unknown [...] 2:00 PM EDT Appointment [place] [address] Luis Alfredo Velazquez MD [facility] [place] [address] 07/02/2024 4:00 PM EDT Office Visit Cardiology at [place] [address] [address] PA [facility] [place] [address] 07/02/2024 4:40 PM EDT Office Visit Cardiology at [place] [address] Luis Alfredo Velazquez MD [facility] [place] [address] 07/18/2024 9:00 AM EST Hospital Encounter Non-Invasive Cardiology Lab [place] [address] Arrived 07/27/2024 3:30 PM EST Office Visit Rheumatology at [place] [address] Gabe Fong MD [facility] [place] [address] 12/07/2024 2:30 PM EDT TH Visit (TeleHealth) Gastroenterology at [place] [address] Rosemarie Morrow APRN [facility] [place] [place] [address] documented as of this encounter Visit Diagnoses Not on filedocumented in this encounter Care Teams Exit Booth Agent Relationship Specialty Start Date End Date Marcio Devlin DO [address] [place] [address] PCP - General Family Medicine 11/11/17 documented as of this encounter
--- OUTSIDE RECORDS SUMMARY | 2024-06-14 15:28 | XMS_ITS | Encounter Summary ---
Author Organization [facility] [place] [address] Care Team Providers Care Paint Line Production Supervisor Name Role Phone Marcio Devlin DO Primary Care Provider [phone] Encounter Details Date Type Department Care Team [...] 2:00 PM EDT Appointment Non-[place] [phone] Luis Alfredo Velazquez MD [facility] [place] [address] 07/02/2024 4:00 PM EDT Office Visit Cardiology at [address] [phone] [place] PA [facility] [place] [address] 07/02/2024 4:40 PM EDT Office Visit Cardiology at [address] [phone] Luis Alfredo Velazquez MD [facility] [place] [address] 07/18/2024 9:00 AM EST Hospital Encounter Non-[place] [address] Arrived 07/27/2024 3:30 PM EST Office [place] [address] Gabe Fong MD [facility] [address] 12/07/2024 2:30 PM EDT TH Visit (TeleHealth) [place] [address] Rosemarie Morrow APRN [facility] [place] [address] documented as of this encounter Visit Diagnoses Not on filedocumented in this encounter Care Teams Paint Line Production Supervisor Relationship Specialty Start Date End Date Marcio Devlin DO [address] [place] [address] PCP - General Family Medicine 11/11/17 documented as of this encounter
--- OUTSIDE RECORDS SUMMARY | 2024-06-14 15:29 | XMS_ITS | Encounter Summary ---
Author Organization [facility] [place] [address] Care Team Providers Care Report Analyst Name Role Phone Marcio Devlin DO Primary Care Provider [phone] Encounter Details Date Type Department Care Team (Late st Contact Info) Description 08/05/2022 Telephone [place] [address] María Elena Jean, MA Social [...] EDT Appointment Non-[place] [phone] Luis Alfredo Velazquez MD [facility] [place] [address] 07/02/2024 4:00 PM EDT Office Visit Cardiology at [address] [phone] [place] PA [facility] [place] [address] 07/02/2024 4:40 PM EDT Office Visit Cardiology at [address] [phone] Luis Alfredo Velazquez MD [facility] [place] [address] 07/18/2024 9:00 AM EST Hospital Encounter Non-[place]vasive [place] [address] Arrived 07/27/2024 3:30 PM EST Office [place] [phone] Gabe Fong MD [facility] [place] [address] 12/07/2024 2:30 PM EDT TH Visit (TeleHealth) [place] [phone] Rosemarie Morrow, SKIP [facility] [place] [address] documented as of this encounter Visit Diagnoses Not on filedocumented in this encounter Care Teams Report Analyst Relationship Specialty Start Date End Date Marcio Devlin DO [address] [place] [address] PCP - General Family Medicine 11/11/17 documented as of this encounter
--- OUTSIDE RECORDS SUMMARY | 2024-06-14 15:29 | XMS_ITS | Encounter Summary ---
Author Organization [facility] [place] [address] Care Team Providers Care Pipeline Inspector Name Role Phone Marcio Devlin DO Primary Care Provider [phone] Reason for Referral * Diagnostic Test (Routine) - Closed Specialty Diagnoses / Procedures Referred By Contac t Referred To Contact Radiology Diagnoses Chronic left hip pain Procedures MRI Hip wo Contrast Left (Generic) MRI Hip wwo Contrast Left MRI Hip wo Contrast Left (Generic) Gabe Fong MD [facility] [address] [place] [address] [facility] [address] [place] [address] Referral ID Status Reason Start Date Expiration Date V isits Requested Visits Authorized [id number] Closed Specialty Service Requested 12/25/2021 06/26/2023 1 1 Reason for Visit * Diagnostic Test (Routine) - Closed Specialty Diagnoses / Procedures Referred By Contac t Referred To Contact Radiology Diagnoses Chronic left hip pain Procedures MRI Hip wo Contrast Left (Generic) MRI Hip wwo Contrast Left MRI Hip wo Contrast Left (Generic) Gabe Fong MD [facility] [address] [place] [address] [facility] [address] [place] [address] Referral ID Status Reason Start Date Expiration Date V isits Requested Visits Authorized [id number] Closed Specialty Service Requested 12/25/2021 06/26/2023 1 1 Encounter Details Date Type Department Care Team (Latest Contact Info) Description 02/04/2022 12:08 PM EDT - 02/04/2022 11:59 PM EDT Hospital Encounter Radiology MRI at [address] [place] [address] Gabe Fong MD [facility] [address] [place] [address] Chronic left hip pain Discharge Disposition: Home [...] by mouth daily. SUMAtriptan (IMITREX) 20 mg/actuation [place], Non-Aerosol 1 spray as needed. 11/03/2017 metFORMIN [...] by mouth 2 times daily. 12/24/2012 10/07/2023 metoprolol succinate (TOPROL-XL) 100 mg Tablet Sustained [...] A DAY NEEDED FOR DIZZINESS 01/24/2022 12/02/2022 Stelara 90 mg/mL subcutaneous injectionIndications:Ul cerative pancolitis [...] 07/23/2021 10/22/2023 documented as of this encounter Plan of Treatment Upcoming Encounters Date Type Department Care Team (Late st Contact Info) Description 07/02/2024 2:00 PM EDT Appointment Non-[place] [phone] Luis Alfredo Velazquez MD [facility] [place] [address] 07/02/2024 4:00 PM EDT Office Visit Cardiology at [address] [phone] [place] PA [facility] CARDIOLOGY [place], [place] [address] 07/02/2024 4:40 PM EDT Office Visit Cardiology at [address] [phone] Luis Alfredo Velazquez MD [facility] [place] [address] 07/18/2024 9:00 AM EST Hospital Encounter Non-[place]vasive [place] [phone] Arrived 07/27/2024 3:30 PM EST Office [place] [address] Gabe Fong MD [facility] [place] [address] 12/07/2024 2:30 PM EDT TH Visit (TeleHealth) [place] [phone] Rosemarie Morrow, SKIP [facility] [place] [address] documented as of this encounter Procedures Procedure [...] questions please contact the health career development associate that requested your imaging first. ? Narrative [...] and sagittal PD FS sequences. Full pelvis egnsu-dp-[id number] axial T1, coronal T1 and STIR sequences [...] and sagittal PD FS sequences. Full pelvis symyg-yv-ylqb axialT1, coronal T1 and STIR sequences are [...] have questions please contactthe health career development associate that requested your imaging first. Gabe Fong MD IMG MRI ORDERABLES documented in this encounter Visit Diagnoses Diagnosis Chronic left hip pain Pain in joint, pelvic region and thigh documented in this encounter Care Teams Pipeline Inspector Relationship Specialty Start Date End Date Marcio Devlin DO [address] [place] [address] PCP - General Family Medicine 11/11/17 documented as of this encounter
--- OUTSIDE RECORDS SUMMARY | 2024-06-14 15:29 | XMS_ITS | Encounter Summary ---
Author Organization [facility] [place] [address] Care Team Providers Care Set And Exhibit Designer Name Role Phone Marcio Devlin DO Primary Care Provider Encounter Details Date Type Department Care Team (Latest Contact Info) Description 03/22/2022 1:57 PM EDT - 03/22/2022 11:59 PM EDT Hospital En[place] [phone] SOB (shortness of breath) Discharge Disposition: Home [...] by mouth daily. SUMAtriptan (IMITREX) 20 mg/actuation [place], Non-Aerosol 1 spray as needed. 11/03/2017 metFORMIN [...] A DAY NEEDED FOR DIZZINESS 01/24/2022 12/02/2022 clindamycin (CLEOCIN T) 1 % LotionIndications:Foll iculitis [...] 2:00 PM EDT Appointment Non-[place] [phone] Luis Alfredo Velazquez MD [facility] [place] [address] 07/02/2024 4:00 PM EDT Office Visit Cardiology at [address] [phone] [place] PA [facility] [place] [address] 07/02/2024 4:40 PM EDT Office Visit Cardiology at [address] [address] Luis Alfredo Velazquez MD [facility] [address] [place] [address] 07/18/2024 9:00 AM EST Hospital Encounter Non-[place]vasive [place] [phone] Arrived 07/27/2024 3:30 PM EST Office [place] [phone] Gabe Fong MD [facility] [place] [address] 12/07/2024 2:30 PM EDT TH Visit (TeleHealth) [place] [address] Rosemarie Morrow APRN [facility] GASTROENTEROLOGY [place], [place] [phone] documented as of this encounter Procedures Procedure [...] / FVC LLN 67 % COMPAS PFT EBD20-04 Actual Pre-BD 2.09 L/s COMPAS PFT IYY73-34 Pre-BD % of Predicted 91 % COMPAS PFT KAD10-16 Predicted 2.29 L/s COMPAS PFT QGA03-95 Pre-BD Z-Score -0.25 COMPAS PFT DLCO Hb [...] breath documented in this encounter Care Teams Set And Exhibit Designer Relationship Specialty Start Date End Date Marcio Devlin DO [address] [place] [address] PCP - General Family Medicine 11/11/17 documented as of this encounter
--- OUTSIDE RECORDS SUMMARY | 2024-06-14 15:29 | XMS_ITS | Encounter Summary ---
Author Organization [facility] Address [facility] [place] [address] Care Team Providers Care Lead Net Software Developer Name Role Phone Marcio Devlin DO Primary Care Provider [phone] Encounter Details Date Type Department Care Team (Late st Contact Info) Description 01/18/2022 9:30 AM EDT Office [place] [address] Gabe Fong MD [facility] [place] [address] Chronic left hip pain; Ankylosing spondylitis of [...] 2:00 PM EDT Appointment [place] [phone] Luis Alfredo Velazquez MD [facility] [place] [address] 07/02/2024 4:00 PM EDT Office Visit Cardiology at [place] [phone] [place] PA [facility] [place] [address] 07/02/2024 4:40 PM EDT Office Visit Cardiology at [address] [phone] Luis Alfredo Velazquez MD [facility] [place] [address] 07/18/2024 9:00 AM EST Hospital Encounter Non-Invasive [place] [address] Arrived 07/27/2024 3:30 PM EST Office Visit Rheumatology at [place] [phone] Gabe Fong MD [facility] [place] [address] 12/07/2024 2:30 PM EDT TH Visit (TeleHealth) [place] [address] Rosemarie Morrow APRN [facility] [place] [address] documented as of this encounter Visit Diagnoses [...] unspecified documented in this encounter Care Teams Lead Net Software Developer Relationship Specialty Start Date End Date Marcio Devlin DO [address] [place] [address] PCP - General Family Medicine 11/11/17 documented as of this encounter
--- OUTSIDE RECORDS SUMMARY | 2024-06-14 15:29 | XMS_ITS | Encounter Summary ---
Author Organization [facility] Address [facility] [address] Care Team Providers Care Medical Facilities Section Director Name Role Phone Marcio Devlin DO Primary Care Provider [phone] Reason for Visit * Reason Comments Back Pain Back and neck pain * Consultation (Routine) - Closed Specialty Diagnoses / Procedures Referred By Contlyn t Referred To Contact Pain Management Diagnoses Chronic left hip pain Ankylosing spondylitis of cervical region Neck pain Gabe Fong MD [facility] [address] [place] [address] Jorje Marqeuz [address] [address] Referral ID Status Reason Start Date Expiration Date V isits Requested Visits Authorized [id number] Closed Consult, Test & Treat 03/22/2022 03/22/2023 1 1 Encounter Details Date Type Department Care Team (Late st Contact Info) Description 05/07/2022 3:00 PM EDT Office Visit Pain Management at [facility] [place] [phone] [place] [address] Chronic neck pain; Chronic bilateral thoracic back [...] at the referral of Gabe Fong MD [facility] [place] [address] for consultation regarding neck and back pain. [...] She has been through physical therapy in [facility] for left hip pain but has [...] disease Colonoscopy 09/19/08 (Dr. Shady Luz at [facility]) for surveillance for dysplasia. Areas of [...] WITH BX performed by YAQUELIN ESTRADA at [facility] ENDOSCOPY ??? PRO COLONOSCOPY, BIOPSY N/A 03/04/2017 COLONOSCOPY FLEXIBLE, WITH BX (WRVU 3.66) performed by Raúl Austin MD at [facility] ENDOSCOPY ??? PRO COLONOSCOPY, BIOPSY N/A 11/09/2019 COLONOSCOPY FLEXIBLE, WITH BX (WRVU 3.66) performed by Friolan Sahni MD at [facility] ENDOSCOPY ??? PRO COLONOSCOPY, BIOPSY N/A 12/19/2020 COLONOSCOPY FLEXIBLE, WITH BX (WRVU 3.66) performed by Dajuan Rachel MD at [facility] ENDOSCOPY ??? PRO COLONOSCOPY, DIAGNOSTIC N/A 11/09/2019 COLONOSCOPY, DIAGNOSTIC performed by Froilan Sahni MD at [facility] ENDOSCOPY ??? PRO COLONOSCOPY, REMV LESN, SNARE 01/02/2011 COLONOSCOPY, POLYPECTOMY, REMOVAL LESION BY SNARE performed by YAQUELIN ESTRADA at [facility] ENDOSCOPY ??? PRO COLONOSCOPY, REMV LESN, SNARE N/A 03/04/2017 COLONOSCOPY, POLYPECTOMY, REMOVAL LESION BY SNARE (WRVU 4.67) performed by Raúl Austin MD at [facility] ENDOSCOPY ??? PRO COMBINED ANT/POST COLPORRHAPHY N/A 03/10/2018 COLPORRHAPHY ANTERIOR-POSTERIOR; INC CYSTOURETHROSCOPY (WRVU 14.44) performed by Liang Fong MD at [facility] MAIN OR ??? PRO REVAGINAL PROLAPSE, UTEROSACRAL N/A 03/10/2018 COLPOPEXY, VAGINAL, INTRAPERITONEAL APPROACH (WRVU 11.66) [facility]?? PRO SLING OPER STRES INCONTINENCE N/A 03/10/2018 URETHRAL SUSPENSION, SLING\FASCIA OR SYNTHETIC (WRVU 12.13) performed by Liang Fong MD at [facility] MAIN OR ??? PRO VAG HYST, RMV TUBE/OVARY N/A 03/10/2018 HYSTERECTOMY, VAGINAL, REMOVAL TUBE(S) & OR OVARY(S) (WRVU 15.94) performed by Liang Fong MD at [facility] MAIN OR ??? SALPINGECTOMY ??? XR FLUORO INJECTION DRAINAGE JOINT LG RIGHT Right 03/09/2019 XR Fluoro Guided Joint Injection Large Right 03/09/2019 [facility] RAD XRAY FAMILY HISTORY: Family History Problem Relation Age of Onset ??? Hypertension Mother ??? Heart Disease Mother ??? Diabetes Mother ??? Heart Disease Father ??? Cancer Father Lung SOCIAL HISTORY: Tobacco : none Alcohol : rare Recreational drug use : Work : [employer] Home : lives [place] [facility] with Hobbies : fishing, Devexing FUNCTIONAL STATUS: Independent in all ADLs. MEDICATIONS: [...] , Rfl: ??? SUMAtriptan (IMITREX) 20 mg/actuation [place], Non-Aerosol, 1 spray as needed., Disp: , [...] Nausea/Vomiting, Patient reported PHYSICAL EXAM: Patient declined geologic technician today BP 146/80 (BP Location (NBP): Left [...] including shoulder abduction/adduction, elbow flexion/extension, wrist flexion/extension, photoresist contact printer strength, finger abduction, thumb to index opposition [...] in ...'s care. Jorje Marquez DO Pain Psychiatric Clinician Professor of Anesthesiology [employer] CC: Gabe Fong MD [facility] [address] documented in this encounter Plan of Treatment Upcoming Encounters Date Type Department Care Team (Late st Contact Info) Description 07/02/2024 2:00 PM EDT Appointment Non-[place] [phone] Luis Alfredo Velazquez MD [facility] [place] [address] 07/02/2024 4:00 PM EDT Office Visit Cardiology at [address] [phone] [place] PA [facility] [place] [address] 07/02/2024 4:40 PM EDT Office Visit Cardiology at [address] [phone] Luis Alfredo Velazquez MD [facility] [place] [address] 07/18/2024 9:00 AM EST Hospital Encounter Non-[place]vasive [place] [phone] Arrived 07/27/2024 3:30 PM EST Office [place] [phone] Gabe Fong MD [facility] [place] [address] 12/07/2024 2:30 PM EDT TH Visit (TeleHealth) [place] [address] Rosemarie Morrow, SKIP [facility] [place] [address] documented as of this encounter Results * [...] who have questions please contact the health caretaker that requested your imaging first. ? Narrative [...] patients who have questions please contactthe health caretaker that requested your imaging first. Jorje Marquez [...] who have questions please contact the health caretaker that requested your imaging first. ? Narrative 05/07/2022 4:22 PM EDT EXAMINATION: XR LUMBAR SPINE 2 OR 3 VIEWS (GENERIC) CLINICAL HISTORY: chronic low back pain hx ankylosing spondylitis TECHNIQUE: Lumbar spine AP and lateral COMPARISON: August 24, 2015 FINDINGS: There are five dxa-ryw-nkrverc lumbar-type vertebrae. The osseous structures are diffusely [...] August 24, 2015 FINDINGS: There are five rno-nms-qzcwfln lumbar-type vertebrae. The osseous structures are diffusely [...] patients who have questions please contactthe health caretaker that requested your imaging first. Jorje ONEAL [...] pain documented in this encounter Care Teams Medical Facilities Section Director Relationship Specialty Start Date End Date Marcio Devlin DO [address] [place] [address] PCP - General Family Medicine 11/11/17 documented as of this encounter
--- OUTSIDE RECORDS SUMMARY | 2024-06-14 15:29 | XMS_ITS | Encounter Summary ---
Author Organization [facility] [place] [address] Care Team Providers Care Heavy Equipment Operating Engineer Name Role Phone Marcio Devlin DO Primary Care Provider [phone] Encounter Details Date Type Department Care Team (Late st Contact Info) Description 01/18/2022 [place] [phone] Janki Abdi Social History Tobacco Use Types [...] EDT Appointment Non-Invasive Cardiology Lab [place] [phone] Luis Alfredo Velazquez MD [facility] [place] [address] 07/02/2024 4:00 PM EDT Office Visit Cardiology at [place] [phone] [facility] [place] [address] 07/02/2024 4:40 PM EDT Office Visit Cardiology at [address] [phone] [address] [facility] [place] [address] 07/18/2024 9:00 AM EST Hospital Encounter Non-Invasive Cardiology Lab [place] [phone] Arrived 07/27/2024 3:30 PM EST Office Visit Rheumatology at [place] [phone] [facility] [place] [address] 12/07/2024 2:30 PM EDT TH Visit (TeleHealth) [place] [phone] [facility] [place] [address] documented as of this encounter Visit Diagnoses Not on filedocumented in this encounter Care Teams Heavy Equipment Operating Engineer Relationship Specialty Start Date End Date Marcio Devlin DO [address] [place] [address] PCP - General Family Medicine 11/11/17 documented as of this encounter
--- OUTSIDE RECORDS SUMMARY | 2024-06-14 15:29 | XMS_ITS | Encounter Summary ---
Author Organization [facility] [place] [address] Care Team Providers Care Lint Cleaner Name Role Phone Marcio Devlin DO Primary Care Provider [phone] Encounter Details Date Type Department Care Team (Late st Contact Info) Description 05/15/2022 Orders [place] [phone] Rachelle Acevedo, RN Ulcerative pancolitis with complication [...] 2:00 PM EDT Appointment [place] [address] Luis Alfredo Velazquez MD [facility] [place] [address] 07/02/2024 4:00 PM EDT Office Visit Cardiology at [address] [phone] Mars Green PA [facility] [place] [address] 07/02/2024 4:40 PM EDT Office Visit Cardiology at [address] [phone] Luis Alfredo Velazquez MD [facility] [place] [address] 07/18/2024 9:00 AM EST Hospital Encounter Non-Invasive [place] [address] Arrived 07/27/2024 3:30 PM EST Office Visit Rheumatology at [place] [phone] Gabe Fong MD [facility] [place] [address] 12/07/2024 2:30 PM EDT TH Visit (TeleHealth) [place] [address] Rosemarie Morrow APRN [facility] [place] [address] documented as of this encounter Visit Diagnoses Diagnosis Ulcerative pancolitis with complication documented in this encounter Care Teams Lint Cleaner Relationship Specialty Start Date End Date Marcio Devlin DO [address] [place] [address] PCP - General Family Medicine 11/11/17 documented as of this encounter
--- OUTSIDE RECORDS SUMMARY | 2024-06-14 15:29 | XMS_ITS | Encounter Summary ---
Author Organization [place] [address] Care Team Providers Care Egg Tester Name Role Phone Marcio Devlin DO Primary Care Provider [phone] Encounter Details Date Type Department Care Team (Latest Contact Info) Description 05/10/2022 10:30 AM EDT TH Visit (TeleHealth) [place] [address] Gabe Fong MD [facility] [address] [place] [address] Ankylosing spondylitis of cervical region; Ulcerative colitis [...] is a 62 y.o. female PMHx of ÉMNDEZ and UC with presenting for follow up [...] 2:00 PM EDT Appointment Non-Invasive Cardiology Lab [place] [phone] Luis Alfredo Velazquez MD [facility] [address] 07/02/2024 4:00 PM EDT Office Visit Cardiology at [place] [phone] Mars Green PA [facility] [place] [address] 07/02/2024 4:40 PM EDT Office Visit Cardiology at [place] [phone] Luis Alfredo Velazquez MD [facility] [place] [address] 07/18/2024 9:00 AM EST Hospital Encounter Non-[place] [address] Arrived 07/27/2024 3:30 PM EST Office Visit Rheumatology at [place] [phone] Gabe Fong MD [facility] [place] [address] 12/07/2024 2:30 PM EDT TH Visit (TeleHealth) [place] [address] Rosemarie Morrow, SKIP [facility] DR GASTROENTEROLOGY [place] [phone] documented as of this encounter Visit Diagnoses [...] location documented in this encounter Care Teams Egg Tester Relationship Specialty Start Date End Date Marcio Devlin DO [address] [place] [address] PCP - General Family Medicine 11/11/17 documented as of this encounter
--- OUTSIDE RECORDS SUMMARY | 2024-06-14 15:29 | XMS_ITS | Encounter Summary ---
Author Organization [facility] Address [facility] [place] [address] Care Team Providers Care Java Web Developer Name Role Phone Marcio Devlin DO Primary Care Provider [phone] Encounter Details Date Type Department Care Team (Late st Contact Info) Description 02/04/2022 Orders Only [place] [phone] Dajuan Rachel MD [facility] [place] [address] Social History Tobacco Use Types Packs/Day Years [...] 2:00 PM EDT Appointment Non-[place] [address] Luis Alfredo Velazquez MD [facility] [place] [address] 07/02/2024 4:00 PM EDT Office Visit Cardiology at [place] [address] Mars Green PA [facility] [place] [address] 07/02/2024 4:40 PM EDT Office Visit Cardiology at [place] [address] Luis Alfredo Velazquez MD [facility] [place] [address] 07/18/2024 9:00 AM EST Hospital Encounter Non-Invasive Cardiology Lab [place] [address] Arrived 07/27/2024 3:30 PM EST Office Visit Rheumatology at [place] [address] Gabe Fong MD [facility] [place] [address] 12/07/2024 2:30 PM EDT TH Visit (TeleHealth) Gastroenterology at [place] [address] Rosemarie Morrow APRN [facility] [place] [address] documented as of this encounter Visit Diagnoses Not on filedocumented in this encounter Care Teams Java Web Developer Relationship Specialty Start Date End Date Marcio Devlin DO [address] [place] [address] PCP - General Family Medicine 11/11/17 documented as of this encounter
--- OUTSIDE RECORDS SUMMARY | 2024-06-14 15:29 | XMS_ITS | Encounter Summary ---
Author Organization [facility] [place] [address] Care Team Providers Care Civil Celebrant Name Role Phone Marcio Devlin DO Primary Care Provider Encounter Details Date Type Department Care Team (Late st Contact Info) Description 05/16/2022 Orders [place] [phone] Rachelle Acevedo, RN Social History Tobacco Use [...] 2:00 PM EDT Appointment Non-In[place] [address] [address] [facility] [place] [address] 07/02/2024 4:00 PM EDT Office Visit Cardiology at [address] [address] [facility] [place] [address] 07/02/2024 4:40 PM EDT Office Visit Cardiology at [address] [address] Luis Alfred[address]quez [address] [facility] [place] [address] 07/18/2024 9:00 AM EST Hospital Encounter Non-Invasive [place] [address] Arrived 07/27/2024 3:30 PM EST Office Visit Rheumatology at [place] [phone] [facility] [place] [address] 12/07/2024 2:30 PM EDT TH Visit (TeleHealth) [place] [phone] [facility] [place] [address] documented as of this encounter Visit Diagnoses Not on filedocumented in this encounter Care Teams Civil Celebrant Relationship Specialty Start Date End Date Marcio Devlin DO [address] [place] [address] PCP - General Family Medicine 11/11/17 documented as of this encounter
--- OUTSIDE RECORDS SUMMARY | 2024-06-14 15:29 | XMS_ITS | Encounter Summary ---
Author Organization [facility] [place] [address] Care Team Providers Care Aids Counselor Name Role Phone Marcio Devlin DO Primary Care Provider [phone] Reason for Visit * Reason Comments Left Hip Pain Encounter Details Date Type Department Care Team (Late st Contact Info) Description 01/23/2022 3:00 PM EDT Office [place] [address] Saurabh Mercado MD [facility] [address] Trochanteric bursitis of left hip Social History [...] subsidence, loosening, or periprosthetic complication. Questionnaire Responses: [facility] Surgical Postop Visit 01/16/2022 PROMIS-10 General Health [...] Choose Same Treatment Again Definitely yes Orthopeadics [facility] Response 01/16/2022 HOOS JR Scores 64.66 Spine [facility] Response 01/16/2022 HOOS JR Scores 64.66 Trochanteric [...] 2:00 PM EDT Appointment Non[place] [phone] Luis Alfredo Velazquez MD [facility] [place] [address] 07/02/2024 4:00 PM EDT Office Visit Cardiology at [address] [phone] Mars Green PA [facility] [place] [address] 07/02/2024 4:40 PM EDT Office Visit Cardiology at [address] [phone] Luis Alfredo Velazquez MD [facility] [place] [address] 07/18/2024 9:00 AM EST Hospital Encounter Non[place] [address] Arrived 07/27/2024 3:30 PM EST Office Visit Rheumatology at [place] [phone] Gabe Fong MD [facility] [place] [address] 12/07/2024 2:30 PM EDT TH Visit (TeleHealth) [place] [address] Rosemarie Morrow APRN [facility] [place] [address] documented as of this encounter Visit Diagnoses Diagnosis Trochanteric bursitis of left hip Enthesopathy of hip region documented in this encounter Care Teams Aids Counselor Relationship Specialty Start Date End Date Marcio Devlin DO [address] [place] [address] PCP - General Family Medicine 11/11/17 documented as of this encounter
--- OUTSIDE RECORDS SUMMARY | 2024-06-14 15:29 | XMS_ITS | Encounter Summary ---
Author Organization [facility] [place] [address] Care Team Providers Care Electronics Technology Department Chair Name Role Phone Marcio Devlin DO Primary Care Provider [phone] Reason for Referral * Consultation (Routine) - Closed Specialty Diagnoses / Procedures Referred By Contlyn escalera Referred To Contact Pain Management Diagnoses Chronic left hip pain Ankylosing spondylitis of cervical region Neck pain Gabe Fong MD [facility] [address] [address] Jorje Marquez DO [address] [facility] [place] [address] Referral ID Status Reason Start Date Expiration Date V isits Requested Visits Authorized [id number] Closed Consult, Test & Treat 03/22/2022 03/22/2023 1 1 Encounter Details Date Type Department Care Team (Late st Contact Info) Description 03/22/2022 9:30 AM EDT Office [place] [address] Gabe Fong MD [facility] [address] [address] Chronic left hip pain; Ankylosing [...] back.She notes as a follow-up with the BRUSH WORKER/PA for this with me after the colonoscopy. [...] 2:00 PM EDT Appointment Non-[place] [address] Luis Alfredo Velazquez MD [facility] [address] 07/02/2024 4:00 PM EDT Office Visit Cardiology at [address] [place] Green PA [facility] [place] [address] 07/02/2024 4:40 PM EDT Office Visit Cardiology at [place] [address] Luis Alfredo Velazquez MD [facility] [place] [address] 07/18/2024 9:00 AM EST Hospital Encounter Non-Invasive Cardiology Lab [address]1000 Arrived 07/27/2024 3:30 PM EST Office Visit Rheumatology at [place] [address] Gabe Fong MD [facility] [place] [address] 12/07/2024 2:30 PM EDT TH Visit (TeleHealth) Gastroenterology at [address]1000 Rosemarie Morrow APRN [facility] [place] [address] Scheduled Referrals Name Type Priority Associated Diagnoses [...] / FVC LLN 67 % COMPAS PFT [id number] Actual Pre-BD 2.09 L/s COMPAS PFT BKS07-42 Pre-BD % of Predicted 91 % COMPAS PFT YUW03-46 Predicted 2.29 L/s COMPAS PFT GDD87-18 Pre-BD Z-Score -0.25 COMPAS PFT DLCO Hb [...] breath documented in this encounter Care Teams Electronics Technology Department Chair Relationship Specialty Start Date End Date Marcio Devlin DO [address] [place] [address] PCP - General Family Medicine 11/11/17 documented as of this encounter
--- OUTSIDE RECORDS SUMMARY | 2024-06-14 15:29 | XMS_ITS | Encounter Summary ---
Author Organization [facility] [place] [address] Care Team Providers Care Counseling Specialist Name Role Phone Marcio Devlin DO Primary Care Provider [phone] Reason for Referral * Diagnostic Test (Routine) - Closed Specialty Diagnoses / Procedures Referred By Contac t Referred To Contact Radiology Diagnoses Ankylosing spondylitis of cervical region Neck pain Decreased ROM of neck Procedures MRI Cervical Spine wo Contrast (Generic) Gabe Fong MD [facility] [address] [place] [address] [place] [address] Referral ID Status Reason Start Date Expiration Date V isits Requested Visits Authorized [id number] Closed Specialty Service Requested 02/22/2022 08/24/2023 1 1 Reason for Visit * Diagnostic Test (Routine) - Closed Specialty Diagnoses / Procedures Referred By Contac t Referred To Contact Radiology Diagnoses Ankylosing spondylitis of cervical region Neck pain Decreased ROM of neck Procedures MRI Cervical Spine wo Contrast (Generic) Gabe Fong MD [facility] [address] [place] [address] [place] [address] Referral ID Status Reason Start Date Expiration Date V isits Requested Visits Authorized [id number] Closed Specialty Service Requested 02/22/2022 08/24/2023 1 1 Encounter Details Date Type Department Care Team (Latest Contact Info) Description 03/08/2022 6:57 AM EDT - 03/08/2022 11:59 PM EDT Hospital Encounter MRI at [facility] [place] [phone] Gabe Fong MD [facility] RHEUMATOLOGY [place] [phone] Ankylosing spondylitis of cervical region; Neck pain; [...] by mouth daily. SUMAtriptan (IMITREX) 20 mg/actuation [place], Non-Aerosol 1 spray as needed. 11/03/2017 metFORMIN [...] EDT Appointment Non-Invasive Cardiology Lab [place] [phone] Luis Alfredo Velazquez MD [facility] [place] [address] 07/02/2024 4:00 PM EDT Office Visit Cardiology at [place] [phone] Mars Green PA [facility] CARDIOLOGY [place], [place] [address] 07/02/2024 4:40 PM EDT Office Visit Cardiology at [address] [phone] Luis Alfredo Velazquez MD [facility] [place] [address] 07/18/2024 9:00 AM EST Hospital Encounter Non-[place] [address] Arrived 07/27/2024 3:30 PM EST Office [place] [address] Gabe Fong MD [facility] [place] [address] 12/07/2024 2:30 PM EDT TH Visit (TeleHealth) Gastroenterology at [place] [phone] Rosemarie Morrow, [facility] GASTROENTEROLOGY [place] [phone] documented as of this encounter Procedures Procedure [...] who have questions please contact the health direct care specialist that requested your imaging first. ? Electronically signed by: Jorje Miller MD, [facility] ([phone]), at 03/08/2022 3:59 PM Narrative 03/08/2022 3:59 [...] patients who have questions please contactthe health direct care specialist that requested your imaging first. Electronically signed by: Jorje Miller MD, [facility]([phone]), at 03/08/2022 3:59 PM Gabe Fong MD IMG MRI ORDERABLES documented in this encounter Visit Diagnoses Diagnosis Ankylosing spondylitis of cervical region Ankylosing spondylitis Neck pain Cervicalgia Decreased ROM of neck documented in this encounter Care Teams Counseling Specialist Relationship Specialty Start Date End Date Marcio Devlin DO [address] [place] [address] PCP - General Family Medicine 11/11/17 documented as of this encounter
--- OUTSIDE RECORDS SUMMARY | 2024-06-14 15:29 | XMS_ITS | Encounter Summary ---
Author Organization [facility] Address [facility] [place] [address] Care Team Providers Care Fund Manager Name Role Phone Marcio Devlin DO Primary Care Provider [phone] Encounter Details Date Type Department Care Team (Late st Contact Info) Description 02/12/2022 Telephone [place] [phone] Gabe Fong MD [facility] [place] [address] Social History Tobacco Use Types Packs/Day Years [...] EDT Appointment Non-Invasive Cardiology Lab [place] [phone] Luis Alfredo Velazquez MD [facility] [address] 07/02/2024 4:00 PM EDT Office Visit Cardiology at [address]1000 [place] Green PA [facility] [place] [address] 07/02/2024 4:40 PM EDT Office Visit Cardiology at [place] [phone] Luis Alfredo Velazquez MD [facility] [address] 07/18/2024 9:00 AM EST Hospital Encounter Non-Invasive Cardiology Lab [place] [phone] Arrived 07/27/2024 3:30 PM EST Office Visit Rheumatology at [place] [phone] Gabe Fong MD [facility] [place] [address] 12/07/2024 2:30 PM EDT TH Visit (TeleHealth) [place] [address] Rosemarie Morrow APRN [facility] [place] [address] documented as of this encounter Visit Diagnoses Not on filedocumented in this encounter Care Teams Fund Manager Relationship Specialty Start Date End Date Marcio Devlin [place] [address] PCP - General Family Medicine 11/11/17 documented as of this encounter
--- OUTSIDE RECORDS SUMMARY | 2024-06-14 15:29 | XMS_ITS | Encounter Summary ---
Author Organization [facility] [place] [address] Care Team Providers Care Medical Physics Researcher Name Role Phone Marcio Devlin DO Primary Care Provider [phone] Reason for Visit * Reason Comments Specialty Pharmacy Review Ustekinumab (S telara) 90mg/mL Syringe Encounter Details Date Type Department Care Team (Late st Contact Info) Description 05/10/2022 Specialty [place] [address] Alison Ortiz, [facility] Social History Tobacco Use Types Packs/Day [...] review their eligibility to fill at [facility]. Per patient's medication list they are prescribed Ustekinumab (Stelara) and the medication is not able to be filled at the [facility]. Kim Funes must fill with [facility] under current insurance plan's mandate. documented in this encounter Plan of Treatment Upcoming Encounters Date Type Department Care Team (Late st Contact Info) Description 07/02/2024 2:00 PM EDT Appointment Non-[place] [phone] Luis Alfredo Velazquez MD [facility] [place] [address] 07/02/2024 4:00 PM EDT Office Visit Cardiology at [place] [address] Mars Green PA [facility] [place] [address] 07/02/2024 4:40 PM EDT Office Visit Cardiology at [place] [address] Luis Alfredo Velazquez MD [facility] [place] [address] 07/18/2024 9:00 AM EST Hospital Encounter Non-[place] [address] Arrived 07/27/2024 3:30 PM EST Office Visit Rheumatology at [place] [address] Gabe Fong MD [facility] [place] [address] 12/07/2024 2:30 PM EDT TH Visit (TeleHealth) [place] [address] Rosemarie Morrow APRN [facility] [place] [address] documented as of this encounter Visit Diagnoses Not on filedocumented in this encounter Care Teams Medical Physics Researcher Relationship Specialty Start Date End Date Marcio Devlin DO [address] [place] [address] PCP - General Family Medicine 11/11/17 documented as of this encounter
--- OUTSIDE RECORDS SUMMARY | 2024-06-14 15:29 | XMS_ITS | Encounter Summary ---
Author Organization [facility] [place] [address] Care Team Providers Care Worm Raiser Name Role Phone Marcio Devlin DO Primary Care Provider [phone] Reason for Visit * Reason Comments Specialty Pharmacy Review Ustekinumab (S telara) 90mg/mL Syringe Encounter Details Date Type Department Care Team (Late st Contact Info) Description 08/06/2022 Specialty [place] [address] Alison Ortiz, [facility] Social History Tobacco Use Types [...] their eligibility to fill at [facility]. Per patient's medication list they are prescribed Ustekinumab (Stelara) and the medication is not able to be filled at the - Specialty Pharmacy. Kim Funes must fill with [facility] under current insurance plan's mandate. documented in this encounter Plan of Treatment Upcoming Encounters Date Type Department Care Team (Late st Contact Info) Description 07/02/2024 2:00 PM EDT Appointment Non-Invasive [place] [phone] Luis Alfredo Velazquez MD [facility] [place] [address] 07/02/2024 4:00 PM EDT Office Visit Cardiology at [address]1000 Mars Green PA [facility] [place] [address] 07/02/2024 4:40 PM EDT Office Visit Cardiology at [place] [address] Luis Alfredo Velazquez MD [facility] [place] [address] 07/18/2024 9:00 AM EST Hospital Encounter Non-Invasive Cardiology Lab [place] [address] Arrived 07/27/2024 3:30 PM EST Office Visit Rheumatology at [place] [address] Gabe Fong MD [facility] [place] [address] 12/07/2024 2:30 PM EDT TH Visit (TeleHealth) Gastroenterology at [place] [address] Rosemarie Morrow APRN [facility] [place] [address] documented as of this encounter Visit Diagnoses Not on filedocumented in this encounter Care Teams Worm Raiser Relationship Specialty Start Date End Date Marcio Devlin DO [address] [place] [address] PCP - General Family Medicine 11/11/17 documented as of this encounter
--- OUTSIDE RECORDS SUMMARY | 2024-06-14 15:29 | XMS_ITS | Encounter Summary ---
Author Organization [facility] [place] [address] Care Team Providers Care Primary Education Professor Name Role Phone Marcio Devlin DO Primary Care Provider [phone] Reason for Visit * Reason Comments Specialty Pharmacy Review Ustekinumab (S telara) 90mg/mL Syringe Encounter Details Date Type Department Care Team (Late st Contact Info) Description 01/18/2022 Specialty Pharm[place] [address] Alison Ortiz, [facility] Social History Tobacco Use Types Packs/Day [...] Ortiz - 01/18/2022 11:59 PM EDT [facility] has completed a benefits investigation for Kim Dajuan Funes to review their eligibility to fill at [facility]. Per patient's medication [...] 2:00 PM EDT Appointment Non-Invasive [place] [phone] Luis Alfredo Velazquez MD [facility] [place] [address] 07/02/2024 4:00 PM EDT Office Visit Cardiology at [address] [phone] Mars Green PA [facility] CARDIOLOGY [place], [place] [address] 07/02/2024 4:40 PM EDT Office Visit Cardiology at [address] [phone] Luis Alfredo Velazquez MD [facility] [place] [address] 07/18/2024 9:00 AM EST Hospital Encounter Non-Invasive [place]iology [place] [address] Arrived 07/27/2024 3:30 PM EST Office [place] [address] Gabe Fong MD [facility] [place] [address] 12/07/2024 2:30 PM EDT TH Visit (TeleHealth) [place] [address] Rosemarie Morrow, SKIP [facility] [address] documented as of this encounter Visit Diagnoses Not on filedocumented in this encounter Care Teams Primary Education Professor Relationship Specialty Start Date End Date Marcio Devlin DO [facility] [place] [address] PCP - General Family Medicine 11/11/17 documented as of this encounter
--- OUTSIDE RECORDS SUMMARY | 2024-06-14 15:29 | XMS_ITS | Encounter Summary ---
[place] [address] Care Team Providers Care Counseling Specialist Name Role Phone Marcio Devlin DO Primary Care Provider [phone] Reason for Visit * Reason Comments Prior Authorization Stelara 90mg/ml SOSY Encounter Details Date Type Department Care Team (Late st Contact Info) Description 01/22/2022 Specialty [place] [phone] Tiff Anglin CPHT Social History Tobacco Use [...] Kim Stricklandeneuve Patient : 1960 Patient Address: [address] [place] [phone] (home) Medication Name: STELARA 90 MG/ML SUBCUTANEOUS SYRINGE Medication ID: [id number] Subscriber Insurance: [employer] ([facility]) Subscriber Insurance Comment: Phone: [phone] Fax: Physician: Dajuan BERRY Physician Comment: Sent Via: Fax Truong: Ref/Case/PA#: [id number] Medication Strength Frequency Requested: Stelara 90mg/ml SOSY. Inject the contents of one syringe (90mg) subcutaneously once every 8 weeks Qty/Day Supply: New Start: Renewal Diagnosis & ICD-10 Code: K51.90 Patient Notified: No [id number] through anfixPA. Tiff Anglin CPHT 01/22/22 9:30 AM documented in this encounter Plan of Treatment Upcoming Encounters Date Type Department Care Team (Late st Contact Info) Description 07/02/2024 2:00 PM EDT Appointment Non-[place] [address] Luis Alfredo Velazquez MD [facility] [place] [address] 07/02/2024 4:00 PM EDT Office Visit Cardiology at [address] [phone] Mars Green PA [facility] [place] [place] [address] 07/02/2024 4:40 PM EDT Office Visit Cardiology at [address] [address] Luis Alfredo Velazquez MD [facility] [place] [address] 07/18/2024 9:00 AM EST Hospital Encounter Non[place] [address] Arrived 07/27/2024 3:30 PM EST Office Visit Rheumatology at [place] [address] Gabe Fong MD [facility] [place] [address] 12/07/2024 2:30 PM EDT TH Visit (TeleHealth) Gastroenterology at [place] [phone] Rosemarie Morrow, SKIP [facility] [place] [place] [address] documented as of this encounter Visit Diagnoses Not on filedocumented in this encounter Care Teams Counseling Specialist Relationship Specialty Start Date End Date Marcio Devlin DO [address] [place] [address] PCP - General Family Medicine 11/11/17 documented as of this encounter
--- OUTSIDE RECORDS SUMMARY | 2024-06-14 15:29 | XMS_ITS | Encounter Summary ---
Author Organization [facility] [place] [address] Care Team Providers Care Manager Name Role Phone Marcio Devlin DO Primary Care Provider [phone] Encounter Details Date Type Department Care Team (Late st Contact Info) Description 05/07/2022 4:00 PM EDT Ancillary Procedure Radiology XRay at the [facility] at [facility] [address] [place] [phone] Jorje Marquez DO 10 [place] [address] Chronic bilateral low back pain without sciatica; [...] PM EDT Appointment Non-Invasive [place] [phone] Luis Alfredo Velazquez MD [facility] [place] [address] 07/02/2024 4:00 PM EDT Office Visit Cardiology at [address] [address] Mars Green PA [facility] [address] [place], [place] [phone] 07/02/2024 4:40 PM EDT Office Visit Cardiology at [address] [address] Luis Alfredo Velazquez MD [facility] [place] [address] 07/18/2024 9:00 AM EST Hospital Encounter Non-Invasive [place] [address] Arrived 07/27/2024 3:30 PM EST Office Visit Rheumatology at [place] [phone] Gabe Fong MD [facility] [place] [address] 12/07/2024 2:30 PM EDT TH Visit (TeleHealth) [place] [address] Rosemarie Morrow APRN [facility] [place] [address] documented as of this encounter Procedures Procedure [...] who have questions please contact the health resident care associate that requested your imaging first. ? Electronically signed by: Nba Alberts MD, [facility] ([phone]), at 05/07/2022 4:15 PM Narrative 05/07/2022 4:15 [...] patients who have questions please contactthe health resident care associate that requested your imaging first. Electronically signed by: Nba Alberts MD, [facility]([phone]), at 05/07/2022 4:15 PM Jorje Marquez DO [...] who have questions please contact the health resident care associate that requested your imaging first. ? Electronically signed by: Nba Alberts MD, [facility] ([phone]), at 05/07/2022 4:22 PM Narrative 05/07/2022 4:22 PM EDT EXAMINATION: XR LUMBAR SPINE 2 OR 3 VIEWS (GENERIC) CLINICAL HISTORY: chronic low back pain hx ankylosing spondylitis TECHNIQUE: Lumbar spine AP and lateral COMPARISON: August 24, 2015 FINDINGS: There are five rys-iwb-giartun lumbar-type vertebrae. The osseous structures are diffusely [...] August 24, 2015 FINDINGS: There are five upc-ajj-cyqmrck lumbar-type vertebrae. The osseous structures are diffusely [...] patients who have questions please contactthe health resident care associate that requested your imaging first. Electronically signed by: Nba Alberts MD, [facility]([phone]), at 05/07/2022 4:22 PM Jorje Marquez DO IMG DX ORDERABLES documented in this encounter Visit Diagnoses Diagnosis Chronic bilateral low back pain without sciatica Ankylosing spondylitis of multiple sites in spine Ankylosing spondylitis Chronic bilateral thoracic back pain documented in this encounter Care Teams Manager Relationship Specialty Start Date End Date Marcio Devlin DO [address] [place] [address] PCP - General Family Medicine 11/11/17 documented as of this encounter
--- OUTSIDE RECORDS SUMMARY | 2024-06-14 15:29 | XMS_ITS | Encounter Summary ---
Author Organization [facility] [place] [address] Care Team Providers Care Manual Arts Therapy Teacher Name Role Phone Marcio Devlin DO Primary Care Provider [phone] Encounter Details Date Type Department Care Team (Late st Contact Info) Description 08/06/2022 Telephone [place] [address] [place] Diana L Social History Tobacco Use Types Packs/Day Years [...] - 08/06/2022 12:52 PM EST Kim Funes [id number] Diagnosis/Indication: Restaging UC since changing to Stelara [...] your procedure. Who will likely be your cpr ambulance driver for the procedure? Estimated body mass [...] at 07/31/2022 7:02 PM EST ----- Regarding: [facility] schedule the colo that was ordered at the beginning of the year. Thanks. Next available with mod consc sed C documented in this encounter Plan of Treatment Upcoming Encounters Date Type Department Care Team (Late st Contact Info) Description 07/02/2024 2:00 PM EDT Appointment Non[place] [phone] Luis Alfredo Velazquez MD [facility] [place] [place] [address] 07/02/2024 4:00 PM EDT Office Visit Cardiology at [address] [phone] Mars Green PA [facility] [place] [place] [address] 07/02/2024 4:40 PM EDT Office Visit Cardiology at [address] [phone] Luis Alfredo Velazquez MD [facility] [place] [address] 07/18/2024 9:00 AM EST Hospital Encounter Non-[place] [phone] Arrived 07/27/2024 3:30 PM EST Office [place] [phone] Gabe Fong MD [facility] [place] [address] 12/07/2024 2:30 PM EDT TH Visit (TeleHealth) [place] [address] Rosemarie Morrow, SKIP [facility] [place] [address] documented as of this encounter Visit Diagnoses Not on filedocumented in this encounter Care Teams Manual Arts Therapy Teacher Relationship Specialty Start Date End Date Marcio Devlin DO [address] [place], [place] [address] [place] [address] PCP - General Family Medicine 11/11/17 documented as of this encounter
--- OUTSIDE RECORDS SUMMARY | 2024-06-14 15:29 | XMS_ITS | Encounter Summary ---
Author Organization [facility] [place] [address] Care Team Providers Care Applications Programmer Analyst Name Role Phone Marcio Devlin DO Primary Care Provider [phone] Reason for Referral * Diagnostic Test (Routine) - Closed Specialty Diagnoses / Procedures Referred By Missy escalera Referred To Contact Radiology Diagnoses Chronic left hip pain Procedures MRI Hip wo Contrast Left (Generic) MRI Hip wwo Contrast Left MRI Hip wo Contrast Left (Generic) Gabe Fong MD [facility] [address] [place] [address] [facility] Rad [facility] [address] [place] [address] Referral ID Status Reason Start Date Expiration Date V isits Requested Visits Authorized [id number] Closed Specialty Service Requested 12/25/2021 06/26/2023 1 1 Encounter Details Date Type Department Care Team (Late st Contact Info) Description 12/25/2021 Telephone [place] [address] Gabe Fong MD [facility] [address] [place] [address] Social History Tobacco Use Types [...] 2:00 PM EDT Appointment Non-Invasive [place] [phone] Luis Alfredo Velazquez MD [facility] [address] [place] [address] 07/02/2024 4:00 PM EDT Office Visit Cardiology at [address] [phone] Mars Green PA [facility] [address] [address] 07/02/2024 4:40 PM EDT Office Visit Cardiology at [address] [phone] Luis Alfredo Velazquez MD [facility] [address] [place] [address] 07/18/2024 9:00 AM EST Hospital Encounter Non-Invasive [place] [address] Arrived 07/27/2024 3:30 PM EST Office [place] [address] Gabe Fong MD [facility] [place] [address] 12/07/2024 2:30 PM EDT TH Visit (TeleHealth) [place] [address] Rosemarie Morrow APRN [facility] [place] [address] documented as of this encounter [...] have questions please contact the health care specialist that requested your imaging first. ? Electronically signed by: Anusha Ledezma MD, [facility] ([phone]), at 02/04/2022 4:47 PM Narrative 02/04/2022 4:47 PM EDT EXAMINATION: MRI HIP WO CONTRAST LEFT (GENERIC) CLINICAL HISTORY: Hip replacement, nerve damage suspected; UC arthritis with hip pain and signicant tedenterness to palpation UC arthritis with hip pain and signicant tedenterness to palpation TECHNIQUE: Noncontrast MRI of the left hip was performed using axial oblique, coronal and sagittal PD FS sequences. Full pelvis ykjuh-om-qruw axial T1, coronal T1 and STIR sequences [...] and sagittal PD FS sequences. Full pelvis wspik-bp-lhba axialT1, coronal T1 and STIR sequences are [...] who have questions please contactthe health care specialist that requested your imaging first. Electronically signed by: Anusha Ledezma MD, [facility]([phone]), at 02/04/2022 4:47 PM Gabe Fong MD IMG MRI ORDERABLES documented in this encounter Visit Diagnoses Diagnosis Chronic left hip pain Pain in joint, pelvic region and thigh Chronic left hip pain Pain in joint, pelvic region and thigh documented in this encounter Care Teams Applications Programmer Analyst Relationship Specialty Start Date End Date Marcio Devlin DO [address] [place] [address] PCP - General Family Medicine 11/11/17 documented as of this encounter
--- OUTSIDE RECORDS SUMMARY | 2024-06-14 15:29 | XMS_ITS | Encounter Summary ---
Author Organization [facility] Address [facility] [place] [address] Care Team Providers Care Licensing And Registration Director Name Role Phone Marcio Devlin DO Primary Care Provider [phone] Encounter Details Date Type Department Care Team (Late st Contact Info) Description 12/25/2021 Orders Only [place] [phone] Gabe Fong MD [facility] [address] Social History Tobacco Use Types Packs/Day Years [...] 2:00 PM EDT Appointment Non-[place] [address] Luis Alfredo Velazquez MD [facility] [address] 07/02/2024 4:00 PM EDT Office [place] [address] Mars Green PA [facility] [place] [address] 07/02/2024 4:40 PM EDT Office Visit Cardiology at [place] [address] Luis Alfredo Velazquez MD [facility] [address] 07/18/2024 9:00 AM EST Hospital Encounter Non-Invasive Cardiology Lab [place] [address] Arrived 07/27/2024 3:30 PM EST Office Visit Rheumatology at [place] [address] Gabe Fong MD [facility] [address] 12/07/2024 2:30 PM EDT TH Visit (TeleHealth) [place] [address] Rosemarie Morrow APRN [facility] [place] [address] documented as of this encounter Visit Diagnoses Not on filedocumented in this encounter Care Teams Licensing And Registration Director Relationship Specialty Start Date End Date Marcio Devlin DO [address] [place] [address] PCP - General Family Medicine 11/11/17 documented as of this encounter
--- OUTSIDE RECORDS SUMMARY | 2024-06-14 15:29 | XMS_ITS | Encounter Summary ---
Author Organization [facility] [place] [address] Care Team Providers Care [employer] Name Role Phone Marcio Devlin DO Primary Care Provider [phone] Encounter Details Date Type Department Care Team (Late st Contact Info) Description 05/14/2022 Telephone [place] [address] Janki Abdi Social History Tobacco [...] 2:00 PM EDT Appointment Non-[place] [phone] Luis Alfredo Velazquez MD [facility] [place] [address] 07/02/2024 4:00 PM EDT Office Visit Cardiology at [address] [phone] Mars Green PA [facility] [place] [address] 07/02/2024 4:40 PM EDT Office Visit Cardiology at [address] [phone] Luis Alfredo Velazquez MD [facility] [place] [address] 07/18/2024 9:00 AM EST Hospital Encounter Non-[place]vasive [place] [address] Arrived 07/27/2024 3:30 PM EST Office Visit [place] [phone] Gabe Fong MD [facility] [place] [address] 12/07/2024 2:30 PM EDT TH Visit (TeleHealth) [place] [phone] Rosemarie Morrow, SKIP [facility] [place] [address] documented as of this encounter Visit Diagnoses Not on filedocumented in this encounter Care Teams [employer] Relationship Specialty Start Date End Date Marcio Devlin DO [address] [place] [address] PCP - General Family Medicine 11/11/17 documented as of this encounter
--- OUTSIDE RECORDS SUMMARY | 2024-06-14 15:29 | XMS_ITS | Encounter Summary ---
Author Organization [facility] [place] [address] Care Team Providers Care Fire Range Technician Name Role Phone Marcio Devlin DO Primary Care Provider [phone] Reason for Visit * Reason Comments Follow-up Encounter Details Date Type Department Care Team (Late st Contact Info) Description 06/11/2022 4:00 PM EDT Office Visit Pain Management at [facility] [address] [place] [address] Jorje Marquez DO [address] [place] [address] Chronic bilateral thoracic back pain; Chronic neck [...] at the referral of Marcio Devlin, DO [address] [place] [address] [place] [address] for consultation regarding neck and back pain. [...] She has been through physical therapy in [facility] for left hip pain but [...] disease Colonoscopy 09/19/08 (Dr. Shady Luz at [facility]) for surveillance for dysplasia. Areas [...] WITH BX performed by YAQUELIN ESTRADA at [facility] ENDOSCOPY ??? PRO COLONOSCOPY, BIOPSY N/A 03/04/2017 COLONOSCOPY FLEXIBLE, WITH BX (WRVU 3.66) performed by Raúl Austin MD at [facility] ENDOSCOPY ??? PRO COLONOSCOPY, BIOPSY N/A 11/09/2019 COLONOSCOPY FLEXIBLE, WITH BX (WRVU 3.66) performed by Froilan Sahni MD at [facility] ENDOSCOPY ??? PRO COLONOSCOPY, BIOPSY N/A 12/19/2020 COLONOSCOPY FLEXIBLE, WITH BX (WRVU 3.66) performed by Dajuan Rachel MD at [facility] ENDOSCOPY ??? PRO COLONOSCOPY, DIAGNOSTIC N/A 11/09/2019 COLONOSCOPY, DIAGNOSTIC performed by Froilan Sahni MD at [facility] ENDOSCOPY ??? PRO COLONOSCOPY, REMV LESN, SNARE 01/02/2011 COLONOSCOPY, POLYPECTOMY, REMOVAL LESION BY SNARE performed by YAQUELIN ESTRADA at [facility] ENDOSCOPY ??? PRO COLONOSCOPY, REMV LESN, SNARE N/A 03/04/2017 COLONOSCOPY, POLYPECTOMY, REMOVAL LESION BY SNARE (WRVU 4.67) performed by Raúl Austin MD at [facility] ENDOSCOPY ??? PRO COMBINED ANT/POST COLPORRHAPHY N/A 03/10/2018 COLPORRHAPHY ANTERIOR-POSTERIOR; INC CYSTOURETHROSCOPY (WRVU 14.44) performed by Liang Fong MD at [facility] MAIN OR ??? PRO REVAGINAL PROLAPSE, UTEROSACRAL N/A 03/10/2018 COLPOPEXY, VAGINAL, INTRAPERITONEAL APPROACH (WRVU 11.66) performed by Liang Fong MD at [facility] OR ??? PRO SLING OPER STRES INCONTINENCE N/A 03/10/2018 URETHRAL SUSPENSION, SLING\FASCIA OR SYNTHETIC (WRVU 12.13) performed by Liang Fong MD at [facility] MAIN OR ??? PRO VAG HYST, RMV TUBE/OVARY N/A 03/10/2018 HYSTERECTOMY, VAGINAL, REMOVAL TUBE(S) & OR OVARY(S) (WRVU 15.94) performed by Liang Fong MD at [facility] MAIN OR ??? SALPINGECTOMY ??? XR FLUORO INJECTION DRAINAGE JOINT LG RIGHT Right 03/09/2019 XR Fluoro Guided Joint Injection Large Right 03/09/2019 [facility] RAD XRAY FAMILY HISTORY: Family History Problem Relation Age of Onset ??? Hypertension Mother ??? Heart Disease Mother ??? Diabetes Mother ??? Heart Disease Father ??? Cancer Father Lung SOCIAL HISTORY: Tobacco : none Alcohol : rare Recreational drug use : Work : [employer] Home : lives [place] [...] , Rfl: ??? SUMAtriptan (IMITREX) 20 mg/actuation Amberg, Non-Aerosol, 1 spray as needed., Disp: , [...] including shoulder abduction/adduction, elbow flexion/extension, wrist flexion/extension, ironworker foreman strength, finger abduction, thumb to index opposition [...] 24, 2015 ?? FINDINGS: There are five nwn-myr-pbjqsis lumbar-type vertebrae. ?? The osseous structures are [...] in Kim's care. Jorje Marquez DO Pain Anatomy Teacher Professor of Anesthesiology [facility] [employer] [facility] CC: Marcio Devlin DO [address] [place] [address] documented in this encounter Plan of Treatment Upcoming Encounters Date Type Department Care Team (Late st Contact Info) Description 07/02/2024 2:00 PM EDT Appointment Non-[place] [address] Luis Alfredo Velazquez MD [facility] [place] [address] 07/02/2024 4:00 PM EDT Office Visit Cardiology at [address] [address] Mars Green PA [facility] [place] [address] 07/02/2024 4:40 PM EDT Office Visit Cardiology at [address] [address] Luis Alfredo Velazquez MD [facility] [place] [address] 07/18/2024 9:00 AM EST Hospital Encounter [place] [address] Arrived 07/27/2024 3:30 PM EST Office Visit Rheumatology at [address] Gabe Fong MD [facility] [place] [address] 12/07/2024 2:30 PM EDT TH Visit (TeleHealth) [place] [phone] Rosemarie Morrow, SKIP [facility] [place] [address] documented as of this encounter Visit Diagnoses Diagnosis Chronic bilateral thoracic back pain Chronic neck pain Cervicalgia Chronic bilateral low back pain without sciatica Ankylosing spondylitis of multiple sites in spine Ankylosing spondylitis documented in this encounter Care Teams Fire Range Technician Relationship Specialty Start Date End Date Marcio Devlin DO [address] [place] [address] PCP - General Family Medicine 11/11/17 documented as of this encounter
--- OUTSIDE RECORDS SUMMARY | 2024-06-14 15:29 | XMS_ITS | Encounter Summary ---
Author Organization [facility] [place] [address] Care Team Providers Care Room Service Food Service Attendant Name Role Phone Marcio Devlin DO Primary Care Provider [phone] Reason for Visit * Reason Comments Specialty Pharmacy Review Ustekinumab (S telara) 90mg/mL Syringe Encounter Details Date Type Department Care Team (Late st Contact Info) Description 03/22/2022 Specialty Pharmacy [place] [phone] Alison Ortiz, [facility] Social History Tobacco Use Types [...] Ortiz - 03/22/2022 11:59 PM EDT [facility] has completed a benefits investigation for Kim Dajuan Funes to review their eligibility to fill at [facility]. Per patient's medication [...] 2:00 PM EDT Appointment Non-[place] [phone] Luis Alfredo Velazquez MD [facility] [place] [address] 07/02/2024 4:00 PM EDT Office Visit Cardiology at [place] [phone] Mars Green PA [facility] [place] [address] 07/02/2024 4:40 PM EDT Office Visit Cardiology at [address] [address] Luis Alfredo Velazquez MD [facility] [place] [address] 07/18/2024 9:00 AM EST Hospital Encounter Non-[place] [address] Arrived 07/27/2024 3:30 PM EST Office Visit [place] [address] Gabe Fong MD [facility] [place] [address] 12/07/2024 2:30 PM EDT TH Visit (TeleHealth) [place] [address] Rosemarie Morrow APRN [facility] [place] [address] documented as of this encounter Visit Diagnoses Not on filedocumented in this encounter Care Teams Room Service Food Service Attendant Relationship Specialty Start Date End Date Marcio Devlin DO [address] [place], [place] [address] [place] [address] PCP - General Family Medicine 11/11/17 documented as of this encounter
--- OUTSIDE RECORDS SUMMARY | 2024-06-14 15:29 | XMS_ITS | Encounter Summary ---
Author Organization [facility] [address] Care Team Providers Care Pug Mill Operator Name Role Phone Marcio Devlin DO Primary Care Provider [phone] Encounter Details Date Type Department Care Team [...] 2:00 PM EDT Appointment Non-[place]vasive [place] [address] Luis Alfredo Velazquez MD [facility] [place] [address] 07/02/2024 4:00 PM EDT Office Visit Cardiology at [address] [phone] Mars Green PA [facility] [place] [address] 07/02/2024 4:40 PM EDT Office Visit Cardiology at [address] [phone] Luis Alfredo Velazquez MD [facility] [place] [address] 07/18/2024 9:00 AM EST Hospital Encounter Non-Invasive [place] [address] Arrived 07/27/2024 3:30 PM EST Office [place] [address] Gabe Fong MD [facility] [place] [address] 12/07/2024 2:30 PM EDT TH Visit (TeleHealth) [place] [address] Rosemarie Morrow APRN [facility] [place] [address] documented as of this encounter Visit Diagnoses Not on filedocumented in this encounter Care Teams Pug Mill Operator Relationship Specialty Start Date End Date Marcio Devlin DO [address] [place] [address] PCP - General Family Medicine 11/11/17 documented as of this encounter
--- OUTSIDE RECORDS SUMMARY | 2024-06-14 15:29 | XMS_ITS | Encounter Summary ---
Author Organization [facility] Address [facility] [place] [address] Care Team Providers Care Secretary To The Vice President Name Role Phone Marcio Devlin DO Primary Care Provider [phone] Encounter Details Date Type Department Care Team (Late st Contact Info) Description 02/11/2022 Orders Only [place] [phone] Dajuan Rachel MD [facility] [place] [address] Social History Tobacco Use Types Packs/Day Years [...] 2:00 PM EDT Appointment Non-[place] [address] Luis Alfredo Velazquez MD [facility] [place] [place] [address] 07/02/2024 4:00 PM EDT Office Visit Cardiology at [place] [address] Mars Green PA [facility] [place] [address] 07/02/2024 4:40 PM EDT Office Visit Cardiology at [place] [address] Luis Alfredo Velazquez MD [facility] [place] [address] 07/18/2024 9:00 AM EST Hospital Encounter Non-Invasive Cardiology Lab [place] [address] Arrived 07/27/2024 3:30 PM EST Office Visit Rheumatology at [place] [address] Gabe Fong MD [facility] [place] [address] 12/07/2024 2:30 PM EDT TH Visit (TeleHealth) Gastroenterology at [place] [address] Rosemarie Morrow APRN [facility] [place] [address] documented as of this encounter Visit Diagnoses Not on filedocumented in this encounter Care Teams Secretary To The Vice President Relationship Specialty Start Date End Date Marcio Devlin DO [address] [place] [address] PCP - General Family Medicine 11/11/17 documented as of this encounter
--- OUTSIDE RECORDS SUMMARY | 2024-06-14 15:29 | XMS_ITS | Encounter Summary ---
Author Organization [facility] [place] [address] Care Team Providers Care Orthopedic Nurse Name Role Phone Marcio Devlin DO Primary Care Provider [phone] Encounter Details Date Type Department Care Team [...] 2:00 PM EDT Appointment Non-Invasive [place] [address] Luis Alfredo Velazquez MD [facility] [place] [address] 07/02/2024 4:00 PM EDT Office Visit Cardiology at [address] [phone] Mars Green PA [facility] [place] [address] 07/02/2024 4:40 PM EDT Office Visit Cardiology at [address] [phone] Luis Alfredo Velazquez MD [facility] [place] [address] 07/18/2024 9:00 AM EST Hospital Encounter Non-Invasive [place] [address] Arrived 07/27/2024 3:30 PM EST Office [place] [address] Gabe Fong MD [facility] [place] [address] 12/07/2024 2:30 PM EDT TH Visit (TeleHealth) [place] [address] Rosemarie Morrow APRN [facility] [place] [address] documented as of this encounter Visit Diagnoses Not on filedocumented in this encounter Care Teams Orthopedic Nurse Relationship Specialty Start Date End Date Marcio Devlin DO [address] [place] [address] PCP - General Family Medicine 11/11/17 documented as of this encounter
--- OUTSIDE RECORDS SUMMARY | 2024-06-14 15:29 | XMS_ITS | Encounter Summary ---
Author Organization [facility] [place] [address] Care Team Providers Care Division Sergeant Name Role Phone Marcio Devlin DO Primary Care Provider [phone] Reason for Referral * Physical Therapy (Routine) - Closed Specialty Diagnoses / Procedures Referred By Missy escalera Referred To Contact Diagnoses Neck pain Chronic bilateral thoracic back pain Ankylosing spondylitis of cervical region Ulcerative colitis without complications, unspecified location High risk medication use Gabe Fong MD [facility] [address] [place] [address] Referral ID Status Reason Start Date Expiration Date V isits Requested Visits Authorized [id number] Closed Evaluate and Treat 08/06/2022 02/02/2023 12 12 Encounter Details Date Type Department Care Team (Late st Contact Info) Description 08/06/2022 9:30 AM EST Office [place] [address] Gabe Fong MD [facility] [address] [place] [address] Neck pain; Chronic bilateral thoracic back pain; [...] however she has been talking with her batch maker about getting in for repeat colonoscopy but [...] 2:00 PM EDT Appointment Non-Invasive [place] [address] Luis Alfredo Velazquez MD [facility] [place] [address] 07/02/2024 4:00 PM EDT Office Visit Cardiology at [address] [phone] Mars Green PA [facility] [place] [address] 07/02/2024 4:40 PM EDT Office Visit Cardiology at [address] [phone] Luis Alfredo Velazquez MD [facility] [place] [address] 07/18/2024 9:00 AM EST Hospital Encounter Non-Invasive [place] [address] Arrived 07/27/2024 3:30 PM EST Office [place] [address] Gabe Fong MD [facility] [place] [place] [address] 12/07/2024 2:30 PM EDT TH Visit (TeleHealth) [place] [address] Rosemarie Morrow APRN [facility] [place] [address] Scheduled Referrals Name Type Priority Associated Diagnoses [...] medications documented in this encounter Care Teams Division Sergeant Relationship Specialty Start Date End Date Marcio Devlin DO [address] [place] [address] PCP - General Family Medicine 11/11/17 documented as of this encounter
--- OUTSIDE RECORDS SUMMARY | 2024-06-14 15:29 | XMS_ITS | Encounter Summary ---
Author Organization [facility] [place] [address] Care Team Providers Care Lunch Truck Operator Name Role Phone Marcio Devlin DO Primary Care Provider [phone] Reason for Referral * Diagnostic Test (Routine) - Closed Specialty Diagnoses / Procedures Referred By Contac t Referred To Contact Radiology Diagnoses Ankylosing spondylitis of cervical region Neck pain Decreased ROM of neck Procedures MRI Cervical Spine wo Contrast (Generic) Gabe Fong MD [facility] [address] [place] [address] [place] [address] Referral ID Status Reason Start Date Expiration Date V isits Requested Visits Authorized [id number] Closed Specialty Service Requested 02/22/2022 08/24/2023 1 1 Encounter Details Date Type Department Care Team (Late st Contact Info) Description 02/22/2022 10:30 AM EDT Office [place] [address] Gabe Fong MD [facility] [address] [place] [place] [address] Chronic left hip pain; Ankylosing [...] 2:00 PM EDT Appointment Non-[place] [address] Luis Alfredo Velazquez MD [facility] [place] [address] 07/02/2024 4:00 PM EDT Office Visit Cardiology at [place] [phone] Mars Green PA [facility] [place] [address] 07/02/2024 4:40 PM EDT Office Visit Cardiology at [address] [phone] Luis Alfredo Velazquez MD [facility] [place] [address] 07/18/2024 9:00 AM EST Hospital Encounter Non-Invasive Cardiology Lab [place] [phone] Arrived 07/27/2024 3:30 PM EST Office Visit Rheumatology at [place] [phone] Gabe Fong MD [facility] [place] [address] 12/07/2024 2:30 PM EDT TH Visit (TeleHealth) [place] [address] Rosemarie Morrow APRN [facility] GASTROENTEROLOGY [place], [place] [phone] documented as of this encounter Procedures Procedure [...] unspecified location Neck pain COMPREHENSIVE METABOLIC PANEL Routine 02/22/2022 11:05 AM EDT Chronic left [...] who have questions please contact the health account executive healthcare that requested your imaging first. ? Narrative 03/08/2022 3:59 PM EDT EXAMINATION: MRI [...] patients who have questions please contactthe health account executive healthcare that requested your imaging first. Gabe Fong MD IMG MRI ORDERABLES * Bilirubin, Direct (02/22/2022 11:05 AM EDT) Bilirubin, Direct 0.1 0.0 - 0.3 mg/dL [facility] Blood 02/22/2022 11:0 5 AM EDT 02/22/2022 11:22 AM EDT Narrative Resulting Agency Comment Spec In Lab Gabe Fong MD CHEMISTRY ORDERABLES [facility] [place] [address] * Differential, Automated (02/22/2022 11:05 AM EDT) Neutrophil % 61.2 % [facility] Neutrophil Absolute 4.92 1.70 - 6.10 x10(3)/[facility] Lymph % 27.7 % [facility] Lymphocytes Abs 2.2 0.9 - 3.2 x10(3)/[facility] Monocyte % 8.4 % [facility] Monocyte Abs 0.7 0.3 - 0.9 x10(3)/[facility] Eos % 2.0 % [facility] Eosinophils Abs 0.2 0.0 - 0.4 x10(3)/[facility] Basophil % 0.5 % [facility] Baso Absolute 0.0 0.0 - 0.1 x10(3)/[facility] Immature Gran % 0.20 % [facility] Comment: Immature granulocytes(IG's)percentage and absolute count will include metamyelocytes, myelocytes, and promyelocytes. Blood smears from CBCs yielding IG's will be scanned manually for concordance. If this scan disagrees with the automated IG or if promyelocytes are noted, a manual differential will be performed. Immature Gran Absolute 0.02 0.00 - 0.04 x10(3)/[facility] Blood 02/22/2022 11:0 5 AM EDT 02/22/2022 11:22 AM EDT Narrative Resulting Agency Comment Spec In Lab Gabe Fong MD HEMATOLOGY ORDERABLE S [facility] [place] [address] * Hemogram (02/22/2022 11:05 AM EDT) [facility] White Blood Cell 8.0 4.0 - 9.5 x10(3)/[facility] Red Blood Cell 4.80 4.00 - 5.21 x10(6)/[facility] Hemoglobin 13.6 11.7 - 15.5 g/dL [facility] Hematocrit 42.4 35.7 - 45.8 % [facility] Mean Cell Volume 88.3 82.6 - 94.4 fL [facility] Mean Cell Hemoglobin 28.3 27.1 - 32.0 pg [facility] Mean Cell Hemoglobin Concentration 32.1 31.7 - 35.0 g/dL [facility] Platelet 262 145 - 357 x10(3)/[facility] RDW Standard Deviation 44.7 37.0 - 46.0 [facility] RDW coefficient of variation 13.6 11.5 - 14.1 % [facility] Mean Platelet Volume 10.0 7.6 - 12.9 fL [facility] NRBC% auto 0.0 % [facility] NRBC Absolute 0.000 0.000 - 0.000 x10(3)/[facility] Blood 02/22/2022 11:0 5 AM EDT 02/22/2022 11:22 AM EDT Narrative Resulting Agency Comment Spec In Lab Gabe Fong MD HEMATOLOGY ORDERABLE S [facility] [place] [address] * (ABNORMAL) Comprehensive metabolic panel (non-fasting) (02/22/2022 11:05 AM EDT) [facility] Glucose 102 65 - 199 mg/dL [facility] Comment:Diabetes: >=200 mg/d L plus symptoms Blood Urea Nitrogen 19(H) 8 - 18 mg/dL [facility] Creatinine 0.78 0.70 - 1.20 mg/dL [facility] Sodium 144 135 - 145 mmol/L [facility] [...] - 107 mmol/L [facility] Carbon Dioxide 26 22 - 31 mmol/L [facility] Anion Gap 12 5 - 15 mmol/L [facility] Calcium 10.1 8.5 - 10.5 mg/dL [facility] Protein, Total 8.0 6.1 - 8.0 g/dL [facility] Albumin 4.1 3.2 - 5.2 g/dL [facility] Aspartate Aminotransferase 23 0 - 30 unit/L [facility] Alanine Aminotransferase 19 0 - 30 unit/L [facility] Alkaline Phosphatase 122(H) 35 - 105 unit/L [facility] Bilirubin, Total 0.4 0.2 - 1.3 mg/dL [facility] Est Glomerular Filtration Rate 83 >=60 mL/min/1. 73 m?? [facility] Comment: This patient? s [...] Fong MD CHEMISTRY ORDERABLES Performing Organization Address [facility] Co de Phone Number [facility] [place] [address] * (ABNORMAL) CRP, acute inflammation (02/22/2022 11:05 AM EDT) C-Reactive Protein 15.0(H) <=4.9 mg/L [facility] Blood 02/22/2022 11:0 5 AM EDT 02/22/2022 11:22 AM EDT Narrative Resulting Agency Comment Spec In Lab Gabe Fong MD CHEMISTRY ORDERABLES Performing Organization Address [facility] Co de Phone Number [facility] [place] [address] * (ABNORMAL) Sedimentation rate (02/22/2022 11:05 AM EDT) Sedimentation Rate Automated 42(H) 2 - 39 mm/hr [facility] Comment: Effective August 25, 2019 new capillary photometric technology has resulted in a change in reference ranges. It is recommended that each ESR result be reviewed with its own age appropriate reference range. Blood 02/22/2022 11:0 5 AM EDT 02/22/2022 11:22 AM EDT Narrative Resulting Agency Comment Spec In Lab Gabe Fong MD HEMATOLOGY ORDERABLE S Performing Organization Address [facility] Co de Phone Number [facility] [place] [address] documented in this encounter Visit Diagnoses Diagnosis [...] neck documented in this encounter Care Teams Lunch Truck Operator Relationship Specialty Start Date End Date Marcio Devlin DO [address] [place] [address] PCP - General Family Medicine 11/11/17 documented as of this encounter
--- OUTSIDE RECORDS SUMMARY | 2024-06-14 15:29 | XMS_ITS | Encounter Summary ---
Author Organization [place] [address] Care Team Providers Care Blackener Name Role Phone Marcio Devlin DO Primary Care Provider [phone] Reason for Visit * Reason Onset Date Comments Medication Refill 02/28/2022 Encounter Details Date Type Department Care Team (Late st Contact Info) Description 02/28/2022 Ref[place] [address] Dajuan Rachel MD [facility] [place] [address] Ulcerative pancolitis without complication Social History Tobacco [...] PM EDT Appointment Non-Invasive Cardiology [place] [facility] [place] [phone] Luis Alfredo Velazquez MD [facility] [place] [address] 07/02/2024 4:00 PM EDT Office Visit Cardiology at [place] [address] [address] Green PA [facility] [place] [address] 07/02/2024 4:40 PM EDT Office Visit Cardiology at [place] [address] Luis Alfredo Velazquez MD [facility] [place] [address] 07/18/2024 9:00 AM EST Hospital Encounter Non-Invasive Cardiology Lab [place] [address] Arrived 07/27/2024 3:30 PM EST Office Visit Rheumatology at [place] [address] Gabe Fong MD [facility] [address] 12/07/2024 2:30 PM EDT TH Visit (TeleHealth) Gastroenterology at [address] Rosemarie Morrow APRN [facility] [place] [address] documented as of this encounter Visit Diagnoses Diagnosis Ulcerative pancolitis without complication documented in this encounter Care Teams Blackener Relationship Specialty Start Date End Date Marcio Devlin DO [address] [place] [address] PCP - General Family Medicine 11/11/17 documented as of this encounter
--- OUTSIDE RECORDS SUMMARY | 2024-06-14 15:30 | XMS_ITS | Encounter Summary ---
Author Organization [facility] [place] [address] Care Team Providers Care Electric Gas Appliances Demonstrator Name Role Phone Marcio Devlin DO Primary Care Provider [phone] Reason for Visit * Reason Comments Follow-up Encounter Details Date Type Department Care Team (Late st Contact Info) Description 12/13/2021 9:00 AM EDT Office [place] [address] Gabe Fong MD [facility] [place] [address] Ankylosing spondylitis of cervical region; Neck pain; [...] 2:00 PM EDT Appointment Non-[place] [phone] Luis Alfredo Velazquez MD [facility] [place] [address] 07/02/2024 4:00 PM EDT Office Visit Cardiology at [address] [phone] Mars Green PA [facility] [place] [address] 07/02/2024 4:40 PM EDT Office Visit Cardiology at [address] [phone] Luis Alfredo Velazquez MD [facility] [place] [address] 07/18/2024 9:00 AM EST Hospital Encounter Non-[place] [phone] Arrived 07/27/2024 3:30 PM EST Office Visit Rheumatology at [place] [phone] Gabe Fong MD [facility] [place] [address] 12/07/2024 2:30 PM EDT TH Visit (TeleHealth) [place] [address] Rosemarie Morrow APRN [facility] [place] [address] documented as of this encounter Procedures Procedure Name Priority Date/Time Associated Diagnosis Comments HC PCH TPMT ACTIVITY PROFILE Routine 12/13/2021 10:05 AM [...] * Differential, Automated (12/13/2021 10:05 AM EDT) Neutrophil % 60.0 % [facility] Neutrophil Absolute 4.27 1.70 - 6.10 x10(3)/mcL [facility] Lymph % 28.7 % [facility] Lymphocytes Abs 2.0 0.9 - 3.2 x10(3)/[facility] Monocyte % 8.4 % [facility] Monocyte Abs 0.6 0.3 - 0.9 x10(3)/[facility] Eos % 2.2 % [facility] Eosinophils Abs 0.2 0.0 - 0.4 x10(3)/[facility] Basophil % 0.4 % [facility] Baso Absolute 0.0 0.0 - 0.1 x10(3)/[facility] Immature Gran % 0.30 % [facility] Comment: Immature granulocytes(IG's)percentage and absolute count will include metamyelocytes, myelocytes, and promyelocytes. Blood smears from CBCs yielding IG's will be scanned manually for concordance. If this scan disagrees with the automated IG or if promyelocytes are noted, a manual differential will be performed. Immature Gran Absolute 0.02 0.00 - 0.04 x10(3)/[facility] Blood 12/13/2021 10:0 5 AM EDT 12/13/2021 10:18 AM EDT Narrative Resulting Agency Comment Spec In Lab Gabe Fong MD HEMATOLOGY ORDERABLE S Performing Organization Address City/State/[facility] Co de Phone Number [facility] [place] [address] * (ABNORMAL) Hemogram (12/13/2021 10:05 AM EDT) White Blood Cell 7.1 4.0 - 9.5 x10(3)/[facility] Red Blood Cell 4.60 4.00 - 5.21 x10(6)/[facility] Hemoglobin 13.5 11.7 - 15.5 g/dL [facility] Hematocrit 42.1 35.7 - 45.8 % [facility] Mean Cell Volume 91.5 82.6 - 94.4 fL [facility] Mean Cell Hemoglobin 29.3 27.1 - 32.0 pg [facility] Mean Cell Hemoglobin Concentration 32.1 31.7 - 35.0 g/dL [facility] Platelet 283 145 - 357 x10(3)/mc L [facility] RDW Standard Deviation 47.9(H) 37.0 - 46.0 fL [facility] RDW coefficient of variation 14.4(H) 11.5 - 14.1 % [facility] Mean Platelet Volume 9.9 7.6 - 12.9 fL [facility] NRBC% auto 0.0 % [facility] NRBC Absolute 0.000 0.000 - 0.000 x10(3)/mc L [facility] Blood 12/13/2021 10:0 5 AM EDT 12/13/2021 10:18 AM EDT Narrative Resulting Agency Comment Spec In Lab Gabe Fong MD HEMATOLOGY ORDERABLE S [facility] [place] [address] * TPMT Activity Profile, RBC (12/13/2021 10:05 AM EDT) Tpmt Activity Profile, Rbc (MAY) Test ? Result ?Flag ??Unit ? RefValue TPMT Activity Profile, RBC ??Interpretation ? SEE COMMENTS ?*Normal* In this whole blood sample, the profile of ?activity of thiopurine methyltransferase using three ?different substrates was normal or essentially normal. ? -ADDITIONAL INFORMATION--------- ?Liquid Chromatography-[employer] CV Mass Spectrometry (LC-MS/MS) ?This test was developed and its performance characteristics ?determined by [facility] in a manner consistent with CLIA ?requirements. This test has not been cleared or approved by ?the U.S. Food and Drug Administration. ??6-Methylmercaptopu rine ? 3.63 ?nmol/mL/h ??3.00-6.66 ??6-Methylmercaptopu rine riboside ?7.44 ?nmol/mL/h ??5.04-9.57 ??6-Methylthioguanin e riboside ? 4.87 ?nmol/mL/h ??2.70-5.84 ??Reviewed By ?Nathaniel Serrato, Ph.D ?Test Performed by: ?[facility] ?[address] [id number] ?Regional Flatbed Truck Driver: Oc Lorenzo M.D. Ph.D.; CLIA# [id number] [facility] Blood 12/13/2021 10:0 5 AM EDT 12/13/2021 3:01 PM EDT Narrative Resulting Agency Comment Spec In Lab Gabe Fong MD LAB SEND OUT ORDERAB LES Performing Organization Address City/[facility]/ZIP Co de Phone Number [facility] [place] [address] * Hepatitis B Core Antibody, Total (12/13/2021 10:05 AM EDT) Hepatitis B Core Antibody Negative Negative [facility] Blood 12/13/2021 10:0 5 AM EDT 12/13/2021 10:18 AM EDT Narrative Resulting Agency Comment Spec In Lab Gabe Fong MD CHEMISTRY ORDERABLES Performing Organization Address [facility] de Phone Number [facility] [place] [address] * Creatinine (12/13/2021 10:05 AM EDT) Creatinine 0.88 0.70 - 1.20 mg/dL [facility] Est Glomerular Filtration Rate 71 >=60 mL/min/1. 73 m?? [facility] Comment: This patient? s estimated glomerular [...] Fong MD CHEMISTRY ORDERABLES Performing Organization Address [facility] Co de Phone Number [facility] [place] [address] * (ABNORMAL) Hepatic Function Panel (12/13/2021 10:05 AM EDT) [facility] [address] Protein, Total 8.4(H) 6.1 - 8.0 g/dL [facility] Albumin 4.3 3.2 - 5.2 g/dL [facility] Aspartate Aminotransferase 23 0 - 30 unit/L [facility] Alanine Aminotransferase 17 0 - 30 unit/L [facility] Alkaline Phosphatase 134(H) 35 - 105 unit/L [facility] Bilirubin, Total 0.3 0.2 - 1.3 mg/dL [facility] Bilirubin, Direct 0.1 0.0 - 0.3 mg/dL [facility] Blood 12/13/2021 10:0 5 AM EDT 12/13/2021 10:18 AM EDT Narrative Resulting Agency Comment Spec In Lab Gabe Fong MD CHEMISTRY ORDERABLES [facility] [place] [address] * (ABNORMAL) CRP, acute inflammation (12/13/2021 10:05 AM EDT) [facility] [address] C-Reactive Protein 23.9(H) <=4.9 mg/L [facility] Blood 12/13/2021 10:0 5 AM EDT 12/13/2021 10:18 AM EDT Narrative Resulting Agency Comment Spec In Lab Gabe Fong MD CHEMISTRY ORDERABLES [facility] [place] [address] * (ABNORMAL) Sedimentation rate (12/13/2021 10:05 AM EDT) [facility] [address] Sedimentation Rate Automated 70(H) 2 - 39 mm/hr [facility] Comment: Effective August 25, 2019 new capillary photometric technology has resulted in a change in reference ranges. It is recommended that each ESR result be reviewed with its own age appropriate reference range. Blood 12/13/2021 10:0 5 AM EDT 12/13/2021 10:18 AM EDT Narrative Resulting Agency Comment Spec In Lab Gabe Fong MD HEMATOLOGY ORDERABLE S [facility] [place] [address] * Lipid Panel (Reflex Direct LDL) (12/13/2021 10:05 AM EDT) Cholesterol, Total 146 mg/dL [facility] Comment: Lower Risk: <200 mg/dL Average Risk: 200-239 mg/dL Higher Risk: >ku=446 mg/dL Triglyceride 343 mg/dL [facility] Comment: Average Risk/Lower Risk: <150 mg/dL Borderline High Risk: 150-199 mg/dL High Risk: 200-499 mg/dL Very High Risk: >ni=708 mg/dL HDL Cholesterol 42 mg/dL [facility] Comment: Males: ?? Higher Risk: <40 mg/dL Females: ?? Higher Risk: <50 mg/dL LDL Cholesterol 35 mg/dL [facility] Comment: Lowest Risk: <100 mg/dL Lower Risk: 100-129 mg/dL Borderline High Risk: 130-159 mg/dL High Risk: 160-189 mg/dL Very High Risk: >rr=791 mg/dL Cholesterol/HDL Ratio 3.5 ratio [facility] Lipid Interpretation See Note [facility] Comment: Lipid management should be guided by a patient? s ASCVD risk, goals and preferences. ACC/AHA Guidelines recommend high intensity statin if clinical ASCVD or LDL greater than or equal to 190 mg/dL. http://uTrail meurl.com/AIC-ENN-Ktalqagwq Adults aged 40-75 with LDL 70-189 mg/dL should have their 10 year ASCVD risk estimated with the ACC/AHA ASCVD risk manufacturing cost estimator http://tools.acc.org/CZNVC-Okyf-Dfxhcxqnw/ Statin should be discussed if risk greater [...] In Lab Gabe Fong MD CHEMISTRY ORDERABLES [facility] [place] [address] * XR Cervical Spine 2 or 3 [...] have questions please contact the health care transition manager that requested your imaging first. ? Narrative [...] who have questions please contactthe health care transition manager that requested your imaging first. Gabe Fong [...] location documented in this encounter Care Teams Electric [employer] Appliances Demonstrator Relationship Specialty Start Date End Date Marcio Devlin DO [address] [place] [address] PCP - General Family Medicine 11/11/17 documented as of this encounter
--- OUTSIDE RECORDS SUMMARY | 2024-06-14 15:30 | XMS_ITS | Encounter Summary ---
Author Organization [facility] [place] [address] Care Team Providers Care Shell Sorter Name Role Phone Marcio Devlin DO Primary Care Provider [phone] Reason for Visit * Reason Onset Date Comments Labs Only 08/02/2021 Encounter Details Date Type Department Care Team (Late st Contact Info) Description 08/02/2021 [place]phone [place] [address] Alex Rodriguez, RN Labs Only [...] PM EST Call received from Lab @ [facility] advising [id number] Qualitative can not be done at [facility] and they donot send out either. They can send out a Quantitative, but will need provider order before they call the patient back tocome back in for more labs. Gabe Fong MD sent to Alex Rodriguez RN; P [facility] Rheumatology [place] Caller: Unspecified (Yesterday, ??3:00 PM) She needs to have it here then. Or at [facility] site I spoke with Kim and she will come here to have test done. documented in this encounter Plan of Treatment Upcoming Encounters Date Type Department Care Team (Late st Contact Info) Description 07/02/2024 2:00 PM EDT Appointment Non-[place] [phone] Luis Alfredo Velazquez MD [facility] [place] [address] 07/02/2024 4:00 PM EDT Office Visit Cardiology at [place] [phone] Mars Green PA [facility] [place] [address] 07/02/2024 4:40 PM EDT Office Visit Cardiology at [address] [phone] Luis Alfredo Velazquez MD [facility] [place] [address] 07/18/2024 9:00 AM EST Hospital Encounter Non-[place] [phone] Arrived 07/27/2024 3:30 PM EST Office [place] [phone] Gabe Fong MD [facility] [place] [address] 12/07/2024 2:30 PM EDT TH Visit (TeleHealth) [place] [address] [address] Mor[address]N [facility] [place] [address] documented as of this encounter Visit Diagnoses Not on filedocumented in this encounter Care Teams Shell Sorter Relationship Specialty Start Date End Date Marcio Devlin DO [address] [place] [address] PCP - General Family Medicine 11/11/17 documented as of this encounter
--- OUTSIDE RECORDS SUMMARY | 2024-06-14 15:30 | XMS_ITS | Encounter Summary ---
Author Organization [facility] [place] [address] Care Team Providers Care Photography Spotter Name Role Phone Marcio Devlin DO Primary Care Provider [phone] Reason for Visit * Reason Comments Medication Management Encounter Details Date Type Department Care Team (Late st Contact Info) Description 03/23/2021 Specialty [place] [address] Sierra Peters RPH Social History [...] is mandated to [facility] ?? Reviewed ED01 co-pay program and recommended patient sign up for co-pay card if applicable ?? Telehealth injection teaching scheduled for 05/16/21 at 2:30 PM ?? Reviewed lab schedule with patient of every 2 weeks for 1 month starting after infusion, every month for 3 months and once every 4 months thereafter. The patient would like to utilize [facility] - orders are already in The patient was also made aware that they are eligible to participate in the [facility] Specialty ClinicalManagement Program. Services in this program include prior authorization and copay assistance, monthly refill reminders, routine pharmacist consults, and 07/04 pharmacist support during therapy. The patient was given [facility] contact information and was encouraged to reach out to the [facility] with any specialty medication-related questions or concerns. Specialty pharmacy will reach out to patient two weeks prior to due date to dispense medication. Sierra Peters RPH 03/23/2021 9:31 AM documented in this encounter Plan of Treatment Upcoming Encounters Date Type Department Care Team (Late st Contact Info) Description 07/02/2024 2:00 PM EDT Appointment Non-Invasive [place] [phone] Luis Alfredo Velazquez MD [facility] [place] [address] 07/02/2024 4:00 PM EDT Office Visit Cardiology at [address] [phone] Mars Green, PA [facility] [place] [address] 07/02/2024 4:40 PM EDT Office Visit Cardiology at [place] [phone] Luis Alfredo Velazquez MD [facility] [place] [address] 07/18/2024 9:00 AM EST Hospital Encounter [place] [address] Arrived 07/27/2024 3:30 PM EST Office Visit Rheumatology at [place] [address] Gabe Fong MD [facility] [place] [address] 12/07/2024 2:30 PM EDT TH Visit (TeleHealth) Gastroenterology at [place] [phone] Rosemarie Morrow, SKIP [facility] [place] [place] [address] documented as of this encounter Visit Diagnoses Not on filedocumented in this encounter Care Teams Photography Spotter Relationship Specialty Start Date End Date Marcio Devlin DO [address] [place] [address] PCP - General Family Medicine 11/11/17 documented as of this encounter
--- OUTSIDE RECORDS SUMMARY | 2024-06-14 15:30 | XMS_ITS | Encounter Summary ---
Author Organization [facility] Address [facility] [place] [address] Care Team Providers Care Business Support Name Role Phone Marcio Devlin DO Primary Care Provider [phone] Encounter Details Date Type Department Care Team (Latest Contact Info) Description 12/13/2021 9:30 AM EDT - 12/13/2021 11:59 PM EDT Hospital Encounter XRay at [address] [place] [address] Gabe Fong MD [facility] [place] [address] Ankylosing spondylitis of cervical region; Neck pain; [...] by mouth daily. SUMAtriptan (IMITREX) 20 mg/actuation [place], Non-Aerosol 1 spray as needed. 11/03/2017 metFORMIN [...] puffs into the lungs daily. 02/21/2011 10/07/2023 azaTHIOprine (Imuran) 50 mg Tablet Take [...] 2:00 PM EDT Appointment Non-[place] [phone] Luis Alfredo Velazquez MD [facility] [place] [address] 07/02/2024 4:00 PM EDT Office Visit Cardiology at [address] [phone] Mars Geren PA [facility] [place] [address] 07/02/2024 4:40 PM EDT Office Visit Cardiology at [address] [phone] Luis Alfredo Velazquez MD [facility] [place] [address] 07/18/2024 9:00 AM EST Hospital Encounter Non-Invasive [place] [address] Arrived 07/27/2024 3:30 PM EST Office [place] [address] Gabe Fong MD [facility] DR RHEUMATOLOGY [place], [place] [phone] 12/07/2024 2:30 PM EDT TH Visit (TeleHealth) [place] [address] Rosemarie Morrow APRN [facility] [place] [address] documented as of this encounter [...] have questions please contact the health healthcare marketer that requested your imaging first. ? Electronically signed by: Ricardo Campbell MD, [facility] ([phone]), at 12/13/2021 9:46 AM Narrative 12/13/2021 9:46 [...] who have questions please contactthe health healthcare marketer that requested your imaging first. Electronically signed by: Ricardo Campbell MD, [facility]([phone]), at 12/13/2021 9:46 AM Gabe Fong MD IMG DX ORDERABLES documented in this encounter Visit Diagnoses Diagnosis Ankylosing spondylitis of cervical region Ankylosing spondylitis Neck pain Cervicalgia Ulcerative colitis without complications, unspecified location documented in this encounter Care Teams Business Support Relationship Specialty Start Date End Date Marcio [place] [address] [place] [address] PCP - General Family Medicine 11/11/17 documented as of this encounter
--- OUTSIDE RECORDS SUMMARY | 2024-06-14 15:30 | XMS_ITS | Encounter Summary ---
Author Organization [facility] [place] [address] Care Team Providers Care Machine Edge Bander Name Role Phone Marcio Devlin DO Primary Care Provider [phone] Reason for Visit * Reason Comments Specialty Pharmacy Review Stelara 90mg/m l syringe Encounter Details Date Type Department Care Team (Late st Contact Info) Description 12/13/2021 Specialty [place] [phone] Celeste Mayes, [facility] [...] Mayes - 12/13/2021 11:59 PM EDT The [facility] has completed a benefits investigation for Kim Graff Shantel to review their eligibility to fill at [facility]. Per patient's medication list they are prescribed Stelara 90mg/ml and the medication is not able to be filled at the [facility]. documented in this encounter Plan of Treatment Upcoming Encounters Date Type Department Care Team (Late st Contact Info) Description 07/02/2024 2:00 PM EDT Appointment Non-[place] [address] Luis Alfredo Velazquez MD [facility] [place] [address] 07/02/2024 4:00 PM EDT Office Visit Cardiology at [place] [phone] Mars Green PA [facility] [place] [address] 07/02/2024 4:40 PM EDT Office Visit Cardiology at [address] [phone] Luis Alfredo Velazquez MD [facility] [place] [address] 07/18/2024 9:00 AM EST Hospital Encounter Non-Invasive [place] [address] Arrived 07/27/2024 3:30 PM EST Office [place] [address] Gabe Fong MD [facility] [place] [address] 12/07/2024 2:30 PM EDT TH Visit (TeleHealth) Gastroenterology at [place] [phone] Rosemarie Morrow, SKIP [facility] GASTROENTEROLOGY [place] [phone] documented as of this encounter Visit Diagnoses Not on filedocumented in this encounter Care Teams Machine Edge Bander Relationship Specialty Start Date End Date Marcio Devlin DO [address] [place] [address] PCP - General Family Medicine 11/11/17 documented as of this encounter
--- OUTSIDE RECORDS SUMMARY | 2024-06-14 15:30 | XMS_ITS | Encounter Summary ---
Author Organization [facility] [place] [address] Care Team Providers Care Rehabilitation Physician Name Role Phone Marcio Devlin DO Primary Care Provider [phone] Reason for Visit * Reason Comments Specialty Pharmacy Review Encounter Details Date Type Department Care Team (Late st Contact Info) Description 07/23/2021 Specialty [place] [phone] Adryan Crabtree, [facility] Social History Tobacco Use Types Packs/Day [...] Crabtree - 07/23/2021 11:59 PM EST [facility] has completed a benefits investigation for Kim Graff Shantel to review their eligibility to fill at [facility]. Per patient's medication list they are prescribed STELARA 90 MG/ML and the medication is not able to be filled at the [facility]. documented in this encounter Plan of Treatment Upcoming Encounters Date Type Department Care Team (Late st Contact Info) Description 07/02/2024 2:00 PM EDT Appointment Non-Invasive Cardiology Lab [place] [phone] Luis Alfredo Velazquez MD [facility] [place] [address] 07/02/2024 4:00 PM EDT Office Visit Cardiology at [place] [phone] Mars Green PA [facility] [place] [address] 07/02/2024 4:40 PM EDT Office Visit Cardiology at [address] [phone] Luis Alfredo Velazquez MD [facility] [place] [address] 07/18/2024 9:00 AM EST Hospital Encounter Non-[place] [address] Arrived 07/27/2024 3:30 PM EST Office Visit Rheumatology at [place] [phone] Gabe Fong MD [facility] [place] [address] 12/07/2024 2:30 PM EDT TH Visit (TeleHealth) [place] [address] Rosemarie Morrow, PHYSICAL GEOGRAPHER [facility] [place] [address] documented as of this encounter Visit Diagnoses Not on filedocumented in this encounter Care Teams Rehabilitation Physician Relationship Specialty Start Date End Date Marcio Devlin DO [address] [place] [address] PCP - General Family Medicine 11/11/17 documented as of this encounter
--- OUTSIDE RECORDS SUMMARY | 2024-06-14 15:30 | XMS_ITS | Encounter Summary ---
Author Organization [facility] [place] [address] Care Team Providers Care Radio Time Sales Supervisor Name Role Phone Marcio Devlin DO Primary Care Provider [phone] Reason for Referral * Consultation (Routine) - Closed Specialty Diagnoses / Procedures Referred By Missy escalera Referred To Contact Orthopaedics Diagnoses Pain in left hip Mass of joint of left hip Gabe Fong MD [facility] [address] [place] [address] [facility] [address] [place] [phone] Referral ID Status Reason Start Date Expiration Date V isits Requested Visits Authorized [id number] Closed Consult, Test & Treat 11/15/2021 11/15/2022 1 1 Reason for Visit * Reason Comments Follow-up Encounter Details Date Type Department Care Team (Late st Contact Info) Description 11/15/2021 9:00 AM EST Office Visit [place] [address] Gabe Fong MD [facility] [address] [place] [place] [address] Pain in left hip; Ulcerative [...] 2:00 PM EDT Appointment [place] [phone] Luis Alfredo Velazquez MD [facility] [place] [address] 07/02/2024 4:00 PM EDT Office Visit Cardiology at [place] [phone] [place] PA [facility] [place] [address] 07/02/2024 4:40 PM EDT Office Visit Cardiology at [address] [address] Luis Alfredo Velazquez MD [facility] [place] [address] 07/18/2024 9:00 AM EST Hospital Encounter Non-Invasive Cardiology Lab [place] [phone] Arrived 07/27/2024 3:30 PM EST Office Visit Rheumatology at [place] [phone] Gabe Fong MD [facility] [place] [place] [address] 12/07/2024 2:30 PM EDT TH Visit (TeleHealth) Gastroenterology at [place] [phone] Rosemarie Morrow APRN [facility] [place] [address] Scheduled Referrals Name Type Priority Associated Diagnoses [...] who have questions please contact the health livestock caretaker that requested your imaging first. ? [...] patients who have questions please contactthe health livestock caretaker that requested your imaging first. Gabe Fong [...] unspecified documented in this encounter Care Teams Radio Time Sales Supervisor Relationship Specialty Start Date End Date Marcio Devlin DO [address] [place] [address] PCP - General Family Medicine 11/11/17 documented as of this encounter
--- OUTSIDE RECORDS SUMMARY | 2024-06-14 15:30 | XMS_ITS | Encounter Summary ---
Author Organization [facility] [place] [address] Care Team Providers Care Marine Services Technician Name Role Phone Marcio Devlin DO Primary Care Provider [phone] Encounter Details Date Type Department Care Team (Latest Contact Info) Description 05/15/2021 12:00 PM EDT TH Visit (TeleHealth) [place] [address] Rosemarie Morrow, SKY DIVER [facility] [place] [address] Ulcerative pancolitis without complication Social History Tobacco [...] Morrow, SKIP - 05/15/2021 12:00 PM EDT [facility] Telehealth Visit Primary care provider: Marcio [...] ?? Colonoscopy 09/19/08 (Dr. Shady Luz [facility] [...] 2020 - severe involvement of L colon, nuum-wz-vafmylvg involvement of transverse and R colon. Worse [...] Feeling better - BM 3-4x/day ( from cg38-48a/day), formed stool, no nocturnal bm - No [...] Ref Range Status ??? COLONOSCOPY 12/19/2020 Final Value:[facility] Endoscopy Procedure Date: 12/19/2020 12:03 PM Patient Name: Kim Funes Date of : 1960 Age: 60 Order #: [id number] Instrument Name: [id number] Procedure: Colonoscopy Patient Profile: This is a [...] bowel preparation was evaluated using the BBPS (Donora Bowel Preparation Scale) with scores of: Right [...] severe involvement of the left colon and cllw-qt-iiebgfnl involvement of the transverse and right colon. [...] PM ??? Surgical Pathology Report 12/19/2020 Final Value:[id number] Location: 4T; EA07; A The signing pathologist [...] MD Verified: 12/26/2020 15:38 Pathologist Performed at: -[facility] Dept. of Pathology, [place], [place] ADDITIONAL STUDIES Immunohistochemistry Studies: Formalin-fixed, paraffin-embedded [...] Labs were reviewed from March. Adalimumab level (grandin) was 12.7. CBC, ESR, CMP were unremarkable. [...] this patient. Renee Morrow APRN Gastroenterology Section [facility] documented in this encounter Plan of Treatment Upcoming Encounters Date Type Department Care Team (Late st Contact Info) Description 07/02/2024 2:00 PM EDT Appointment Non-[place] [phone] Luis Alfredo Velazquez MD [facility] [place] [address] 07/02/2024 4:00 PM EDT Office Visit Cardiology at [place] [address] [place] [facility] [address] 07/02/2024 4:40 PM EDT Office Visit Cardiology at [place] [address] Luis Alfredo Velazquez MD [facility] [address] 07/18/2024 9:00 AM EST Hospital Encounter Non-Invasive Cardiology Lab [place] [address] Arrived 07/27/2024 3:30 PM EST Office Visit Rheumatology at [place] [address] Gabe Fong MD [facility] [place] [address] 12/07/2024 2:30 PM EDT TH Visit (TeleHealth) Gastroenterology at [address] Rosemarie Morrow, SKIP [facility] [place] [address] documented as of this encounter Visit Diagnoses Diagnosis Ulcerative pancolitis without complication documented in this encounter Care Teams Marine Services Technician Relationship Specialty Start Date End Date Marcio Devlin DO [address] [place] [address] PCP - General Family Medicine 11/11/17 documented as of this encounter
--- OUTSIDE RECORDS SUMMARY | 2024-06-14 15:30 | XMS_ITS | Encounter Summary ---
Author Organization Count Includes [facility] Address [facility] [place] [address] Care Team Providers Care Operations Controller Name Role Phone Marcio Devlin DO Primary Care Provider [phone] Reason for Visit * Consultation (Routine) - Closed Specialty Diagnoses / Procedures Referred By Missy escalera Referred To Contact Dermatology Diagnoses Ulcerative pancolitis without complication Rash and other nonspecific skin eruption Rosemarie Morrow, SKIP [facility] [place] [address] [facility] [address] [place] [address] Referral ID Status Reason Start Date Expiration Date V isits Requested Visits Authorized [id number] Closed Consult, Test & Treat 07/09/2021 07/09/2022 1 1 Encounter Details Date Type Department Care Team (Late st Contact Info) Description 07/23/2021 4:15 PM EST Office Visit Dermatology at [facility] [address] [place] [address] Marc Augustine MD [facility] DR [address] [place] [address] Folliculitis; Papular eczema Social History [...] Patient Instructions * Patient Instructions* Cecy Urias, [facility] - 07/23/2021 4:15 PM EST Sensitive Skin Care You have been diagnosed with a condition that requires a sensitive skin care regimen. It is very important to follow this plan as outlined below. ?? Discontinue ALL current personal care products. This includes soap, body wash, shampoo and conditioner, fragrance, nail scottish, lotions and creams, laundry soap and fabric [...] ??? N/A RTC: PRN []Note routed to national secretary []Recall placed in scheduling system []Appointment scheduled at checkout Scribe attestation: YG Bauer has performed the documentation for this encounter in thepresence of and acting as a scribe for Marc Augustine MD. I performed the above scribed service and agree with the accuracy of the documentation in this encounter. Reviewed and signed by: Marc Augustine MD Dermatology [facility] documented in this encounter Plan of Treatment Upcoming Encounters Date Type Department Care Team (Late st Contact Info) Description 07/02/2024 2:00 PM EDT Appointment Non-[place] [phone] Luis Alfredo Velazquez MD [facility] [place] [address] 07/02/2024 4:00 PM EDT Office Visit Cardiology at [place] [phone] [place] [facility] [place] [address] 07/02/2024 4:40 PM EDT Office Visit Cardiology at [place] [phone] Luis Alfredo Velazquez MD [facility] [address] 07/18/2024 9:00 AM EST Hospital Encounter Non-[place] [phone] Arrived 07/27/2024 3:30 PM EST Office Visit Rheumatology at [place] [phone] Gabe Fong MD [facility] [place] [address] 12/07/2024 2:30 PM EDT TH Visit (TeleHealth) [place] [address] Rosemarie Morrow, SKIP [facility] [place] [address] documented as of this encounter Visit Diagnoses Diagnosis Folliculitis Other specified disease of hair and hair follicles Papular eczema Contact dermatitis and other eczema, due to unspecified cause documented in this encounter Care Teams Operations Controller Relationship Specialty Start Date End Date Marcio Devlin DO [address] [place] [address] PCP - General Family Medicine 11/11/17 documented as of this encounter
--- OUTSIDE RECORDS SUMMARY | 2024-06-14 15:30 | XMS_ITS | Encounter Summary ---
Author Organization [facility] Address [facility] [place] [address] Care Team Providers Care Power Engineer Name Role Phone Marcio Devlin DO Primary Care Provider [phone] Encounter Details Date Type Department Care Team (Latest Contact Info) Description 11/21/2021 2:45 PM EST - 11/21/2021 11:59 PM EST Hospital Encounter XRay at [address] [place] [address] Gabe Fong MD [facility] [place] [address] Pain in left hip; Ulcerative colitis without [...] by mouth daily. SUMAtriptan (IMITREX) 20 mg/actuation [place], Non-Aerosol 1 spray as needed. 11/03/2017 metFORMIN [...] 2:00 PM EDT Appointment Non-In[place] [phone] Luis Alfredo Velazquez MD [facility] [place] [address] 07/02/2024 4:00 PM EDT Office Visit Cardiology at [address] [phone] [place] [facility] [place] [address] 07/02/2024 4:40 PM EDT Office Visit Cardiology at [address] [phone] Luis Alfredo Velazquez MD [facility] [place] [address] 07/18/2024 9:00 AM EST Hospital Encounter Non-Invasive [place] [address] Arrived 07/27/2024 3:30 PM EST Office [place] [address] Gabe Fong MD [facility] [place] [address] 12/07/2024 2:30 PM EDT TH Visit (TeleHealth) [place] [address] Rosemarie Morrow APRN [facility] [place] [address] documented as of this encounter [...] have questions please contact the health caretaker resort that requested your imaging first. ? Electronically signed by: Dimple Viera MD, [facility] ([phone]), at 11/21/2021 3:55 PM Narrative 11/21/2021 3:55 [...] who have questions please contactthe health caretaker resort that requested your imaging first. Electronically signed by: Dimple Viera MD, [facility]([phone]), at 11/21/2021 3:55 PM Gabe Fong MD IMG DX ORDERABLES documented in this encounter Visit Diagnoses Diagnosis Pain in left hip Pain in joint, pelvic region and thigh Ulcerative colitis without complications, unspecified location Inflammatory arthropathy Arthropathy, unspecified, site unspecified documented in this encounter Care Teams Power Engineer Relationship Specialty Start Date End Date Marcio Devlin DO [address] [place] [address] PCP - General Family Medicine 11/11/17 documented as of this encounter
--- OUTSIDE RECORDS SUMMARY | 2024-06-14 15:30 | XMS_ITS | Encounter Summary ---
Author Organization [facility] [place] [address] Care Team Providers Care Trader Fixed Income Name Role Phone Marcio Devlin DO Primary Care Provider [phone] Reason for Referral * Consultation (Routine) - Closed Specialty Diagnoses / Procedures Referred By Missy escalera Referred To Contact Dermatology Diagnoses Ulcerative pancolitis without complication Rash and other nonspecific skin eruption Rosemarie Morrow APRN [facility] [place] [address] Htr Dermatology [address] [place] [address] Referral ID Status Reason Start Date Expiration Date V isits Requested Visits Authorized [id number] Closed Consult, Test & Treat 07/09/2021 07/09/2022 1 1 Encounter Details Date Type Department Care Team (Late st Contact Info) Description 07/09/2021 Orders Only [place] [address] Rosemarie Morrow APRN [facility] [place] [address] Ulcerative pancolitis without complication; Rash and other [...] EDT Appointment Non-Invasive Cardiology Lab [place] [phone] Luis Alfredo Velazquez MD [facility] [place] [address] 07/02/2024 4:00 PM EDT Office Visit Cardiology at [place] [phone] [place] [facility] [place] [address] 07/02/2024 4:40 PM EDT Office Visit Cardiology at [address] [phone] Luis Alfredo Velazquez MD [facility] [place] [address] 07/18/2024 9:00 AM EST Hospital Encounter Non-Invasive [place] [phone] Arrived 07/27/2024 3:30 PM EST Office Visit Rheumatology at [place] [phone] Gabe Fong MD [facility] [place] [address] 12/07/2024 2:30 PM EDT TH Visit (TeleHealth) [place] [address] Rosemarie Morrow APRN [facility] [place] [address] Scheduled Referrals Name Type Priority Associated Diagnoses Orde r Schedule Referral to Dermatology Outpatient Referral Routine Ulcerative pancolitis without complication Rash and other nonspecific skin eruption Ordered: 07/09/2021 documented as of this encounter Visit Diagnoses Diagnosis Ulcerative pancolitis without complication Rash and other nonspecific skin eruption documented in this encounter Care Teams Trader Fixed Income Relationship Specialty Start Date End Date Marcio Devlin DO [address] [place] [address] PCP - General Family Medicine 11/11/17 documented as of this encounter
--- OUTSIDE RECORDS SUMMARY | 2024-06-14 15:30 | XMS_ITS | Encounter Summary ---
Author Organization [facility] [place] [address] Care Team Providers Care Director Of Critical Care Name Role Phone Marcio Devlin DO Primary Care Provider [phone] Encounter Details Date Type Department Care Team (Late st Contact Info) Description 09/04/2021 Telephone [place] [phone] Yanely Mendenhall Social History Tobacco Use Types [...] PM EDT Appointment Non-Invasive Cardiology Lab [address]1000 Luis Alfredo Velazquez MD [facility] [place] [place] [address] 07/02/2024 4:00 PM EDT Office Visit Cardiology at [address]1000 [place] [facility] [place] [address] 07/02/2024 4:40 PM EDT Office [place] [address] Luis Alfredo Velazquez MD [facility] [place] [address] 07/18/2024 9:00 AM EST Hospital Encounter Non-Invasive Cardiology Lab [place] [address] Arrived 07/27/2024 3:30 PM EST Office Visit Rheumatology at [address]1000 Gabe Fong MD [facility] [place] [address] 12/07/2024 2:30 PM EDT TH Visit (TeleHealth) Gastroenterology at [place] [address] Rosemarie Morrow APRN [facility] [place] [address] documented as of this encounter Visit Diagnoses Not on filedocumented in this encounter Care Teams Director Of Critical Care Relationship Specialty Start Date End Date Marcio Devlin DO [address] [place] [address] PCP - General Family Medicine 11/11/17 documented as of this encounter
--- OUTSIDE RECORDS SUMMARY | 2024-06-14 15:30 | XMS_ITS | Encounter Summary ---
Author Organization [facility] Address [facility] [place] [address] Care Team Providers Care Fur Examiner Name Role Phone Marcio Devlin DO Primary Care Provider Encounter Details Date Type Department Care Team (Late st Contact Info) Description 07/19/2021 Orders [place] [phone] Gabe Fong MD [facility] [address] [place] [address] Ulcerative colitis without complications, unspecified location; High [...] 2:00 PM EDT Appointment Non-[place] [address] Luis Alfredo Velazquez MD [facility] [place] [address] 07/02/2024 4:00 PM EDT Office Visit Cardiology at [place] [phone] [place] [facility] CARDIOLOGY [place], [place] [phone] 07/02/2024 4:40 PM EDT Office [place] [address] Luis Alfredo Velazquez MD [facility] [place] [address] 07/18/2024 9:00 AM EST Hospital Encounter Non-Invasive Cardiology Lab [place] [phone] Arrived 07/27/2024 3:30 PM EST Office [place] [address] Gabe Fong MD [facility] [address] 12/07/2024 2:30 PM EDT TH Visit (TeleHealth) Gastroenterology at [place] [phone] Rosemarie Morrow, SKIP [facility] [place] [address] documented as of this encounter Results * Hepatitis B Core Antibody, Total (12/13/2021 10:05 AM EDT) Hepatitis B Core Antibody Negative Negative [facility] Blood 12/13/2021 10:0 5 AM EDT 12/13/2021 10:18 AM EDT Narrative Resulting Agency Comment Spec In Lab Gabe Fong MD CHEMISTRY ORDERABLES [facility] [place] [address] documented in this encounter Visit Diagnoses Diagnosis Ulcerative colitis without complications, unspecified location High risk medication use Encounter for long-term (current) use of other medications Inflammatory arthropathy Arthropathy, unspecified, site unspecified Morning joint stiffness Stiffness of joint, not elsewhere classified, unspecified site documented in this encounter Care Teams Fur Examiner Relationship Specialty Start Date End Date Marcio Devlin DO [address] [place] [address] PCP - General Family Medicine 11/11/17 documented as of this encounter
--- OUTSIDE RECORDS SUMMARY | 2024-06-14 15:30 | XMS_ITS | Encounter Summary ---
Author Organization [facility] [place] [address] Care Team Providers Care Sewer System Supervisor Name Role Phone Marcio Devlin DO Primary Care Provider [phone] Reason for Visit * Reason Comments Specialty Pharmacy Review Encounter Details Date Type Department Care Team (Late st Contact Info) Description 05/15/2021 Specialty [place] [phone] Berenice Novak, [facility] Social History Tobacco Use Types Packs/Day [...] Novak - 05/15/2021 11:59 PM EDT The [facility] has completed a benefits investigation for Kim Funes to review their eligibility to fill at [facility]. Per patient's medication list they are prescribed Stelara and the medication is not able to be filled at the [facility]. documented in this encounter Plan of Treatment Upcoming Encounters Date Type Department Care Team (Late st Contact Info) Description 07/02/2024 2:00 PM EDT Appointment [place] [address] Luis Alfredo Velazquez MD [facility] [place] [address] 07/02/2024 4:00 PM EDT Office Visit Cardiology at [address] [address] [place] PA [facility] [place] [address] 07/02/2024 4:40 PM EDT Office Visit Cardiology at [address] [address] Luis Alfredo Velazquez MD [facility] [place] [address] 07/18/2024 9:00 AM EST Hospital Encounter Non-[place] [address] Arrived 07/27/2024 3:30 PM EST Office [place] [address] Gabe Fong MD [facility] [place] [address] 12/07/2024 2:30 PM EDT TH Visit (TeleHealth) [place] [address] Rosemarie Morrow APRN [facility] [place] [address] documented as of this encounter Visit Diagnoses Not on filedocumented in this encounter Care Teams Sewer System Supervisor Relationship Specialty Start Date End Date Marcio Devlin DO [address] [place] [address] PCP - General Family Medicine 11/11/17 documented as of this encounter
--- OUTSIDE RECORDS SUMMARY | 2024-06-14 15:30 | XMS_ITS | Encounter Summary ---
Author Organization [facility] [place] [address] Care Team Providers Care Lock And Dam Repairer Name Role Phone Marcio Devlin DO Primary Care Provider [phone] Reason for Visit * Reason Comments Medication Refill Encounter Details Date Type Department Care Team (Late st Contact Info) Description 09/04/2021 Refill [place] [address] Dajuan Rachel MD [facility] DR [place] [address] Ulcerative pancolitis without complication Social History Tobacco [...] 2:00 PM EDT Appointment [place] [phone] Luis Alfredo Velazquez MD [facility] [place] [address] 07/02/2024 4:00 PM EDT Office Visit Cardiology at [place] [address] [address] [place] [facility] [place] [address] 07/02/2024 4:40 PM EDT Office Visit Cardiology at [place] [address] Luis Alfredo Velazquez MD [facility] [place] [address] 07/18/2024 9:00 AM EST Hospital Encounter Non-Invasive Cardiology Lab [place] [address] Arrived 07/27/2024 3:30 PM EST Office Visit Rheumatology at [place] [address] Gabe Fong MD [facility] [place] [address] 12/07/2024 2:30 PM EDT TH Visit (TeleHealth) Gastroenterology at [place] [phone] Rosemarie Morrow APRN [facility] [place] [address] documented as of this encounter Visit Diagnoses Diagnosis Ulcerative pancolitis without complication documented in this encounter Care Teams Lock And Dam Repairer Relationship Specialty Start Date End Date Marcio Devlin DO [address] [place] [address] PCP - General Family Medicine 11/11/17 documented as of this encounter
--- OUTSIDE RECORDS SUMMARY | 2024-06-14 15:30 | XMS_ITS | Encounter Summary ---
[place] [address] Care Team Providers Care Varnish Maker Helper Name Role Phone Marcio Devlin DO Primary Care Provider [phone] Encounter Details Date Type Department Care Team (Latest Contact Info) Description 08/06/2021 10:30 AM EST Laboratory Appointment Lab [address] [place] [address] Ulcerative colitis without complications, unspecified [...] 2:00 PM EDT Appointment Non-[place] [address] Luis Alfredo Velazquez MD [facility] [place] [address] 07/02/2024 4:00 PM EDT Office Visit Cardiology at [place] [phone] Mars Green PA [facility] [place] [address] 07/02/2024 4:40 PM EDT Office [place] [address] Luis Alfredo Velazquez MD [facility] [place] [address] 07/18/2024 9:00 AM EST Hospital Encounter Non-Invasive Cardiology Lab [address]1000 Arrived 07/27/2024 3:30 PM EST Office Visit Rheumatology at [place] [address] Gabe Fogn MD [facility] [place] [address] 12/07/2024 2:30 PM EDT TH Visit (TeleHealth) Gastroenterology at [place] [phone] Rosemarie Morrow, SKIP [facility] [place] [address] documented as of this encounter Procedures Procedure Name Priority Date/Time Associated Diagnosis Comments HC VENIPUNCTURE Routine 08/06/2021 10:15 AM EST Ulcerative colitis without complications, unspecified location High risk medication use Inflammatory arthropathy Morning joint stiffness documented in this encounter Results * [id number]-[id number] Qualitative (08/06/2021 10:15 AM EST) G6PD Qual Negative screening for G6PD deficiency. [facility] Blood 08/06/2021 10:1 5 AM EST 08/06/2021 10:41 AM EST Narrative Resulting Agency Comment Spec In Lab Gabe Fong MD HEMATOLOGY ORDERABLE S Performing Organization Address City/State/[facility] Co de Phone Number [facility] [place] [address] documented in this encounter Visit Diagnoses Diagnosis Ulcerative colitis without complications, unspecified location High risk medication use Encounter for long-term (current) use of other medications Inflammatory arthropathy Arthropathy, unspecified, site unspecified Morning joint stiffness Stiffness of joint, not elsewhere classified, unspecified site documented in this encounter Care Teams Varnish Maker Helper Relationship Specialty Start Date End Date Marcio Devlin DO [address] [place] [address] PCP - General Family Medicine 11/11/17 documented as of this encounter
--- OUTSIDE RECORDS SUMMARY | 2024-06-14 15:30 | XMS_ITS | Encounter Summary ---
Author Organization [facility] [place] [address] Care Team Providers Care School Traffic Supervisor Name Role Phone Marcio Devlin DO Primary Care Provider [phone] Encounter Details Date Type Department Care Team (Late st Contact Info) Description 10/10/2021 Orders Only [place] [phone] Gabe Fong MD [facility] [address] [address] Ulcerative colitis without complications, unspecified location; High [...] 2:00 PM EDT Appointment Non-Invasive [place] [address] Luis Alfredo Velazquez MD [facility] [place] [address] 07/02/2024 4:00 PM EDT Office Visit Cardiology at [address]1000 Mars Green PA [facility] [place] [address] 07/02/2024 4:40 PM EDT Office Visit Cardiology at [place] [address] Luis Alfredo Velazquez MD [facility] [place] [address] 07/18/2024 9:00 AM EST Hospital Encounter Non-Invasive Cardiology Lab [place] [address] Arrived 07/27/2024 3:30 PM EST Office Visit Rheumatology at [place] [address] Gabe Fong MD [facility] [place] [address] 12/07/2024 2:30 PM EDT TH Visit (TeleHealth) Gastroenterology at [place] [phone] Rosemarie Morrow APRN [facility] [place] [address] documented as of this encounter Visit Diagnoses Diagnosis Ulcerative colitis without complications, unspecified location High risk medication use Encounter for long-term (current) use of other medications Inflammatory arthropathy Arthropathy, unspecified, site unspecified documented in this encounter Care Teams School Traffic Supervisor Relationship Specialty Start Date End Date Marcio Devlin DO [address] [place] [address] [place] [address] PCP - General Family Medicine 11/11/17 documented as of this encounter
--- OUTSIDE RECORDS SUMMARY | 2024-06-14 15:30 | XMS_ITS | Encounter Summary ---
Author Organization [facility] [address] Care Team Providers Care Poem Writer Name Role Phone Marcio Devlin DO Primary Care Provider [phone] Reason for Visit * Reason Comments Prior Authorization Stelara 90mg/ml SOSY Encounter Details Date Type Department Care Team (Late st Contact Info) Description 07/18/2021 Specialty [place] [phone] Silviano Villalta, [facility] Social History Tobacco Use Types [...] Kim Funes Patient : 1960 Patient Address: [address] [place] [phone] (home) Medication Name: STELARA 90 MG/ML SUBCUTANEOUS SYRINGE Medication ID: [id number] Subscriber Insurance: Moment ([facility]) Subscriber Insurance Comment: Phone: [phone] Fax: Physician: Dajuan BERRY Physician Comment: Sent Via: [facility] Truong: [id number] Ref/Case/PA#: Medication Strength Frequency Requested: Inject the [...] STELARA 90 MG/ML SUBCUTANEOUS SYRINGE Medication ID: [id number] Approval Dates: 07/23/2021 to 07/22/2022 Insurance requirements/notes: None Other Notes: None Case/Reference #: [id number] Approval notification Received via: Fax Copay: n/a Copay assistance: Other (Enter Comment) Copay Notes: Insurance Mandate of [facility] unable to see co-pay. Insurance mandated Pharmacy: [facility] Fillable at [facility] Specialty Pharmacy: No Pharmacy staff will be [...] 2:00 PM EDT Appointment Non-[place] [phone] Luis Alfredo Velazquez MD [facility] [place] [address] 07/02/2024 4:00 PM EDT Office Visit Cardiology at [place] [phone] Mars Green PA [facility] [place] [address] 07/02/2024 4:40 PM EDT Office Visit Cardiology at [address] [phone] Luis Alfredo Velazquez MD [facility] [place] [address] 07/18/2024 9:00 AM EST Hospital Encounter Non-Invasive [place] [phone] Arrived 07/27/2024 3:30 PM EST Office [place] [phone] Gabe Fong MD [facility] [place] [address] 12/07/2024 2:30 PM EDT TH Visit (TeleHealth) [place] [address] Rosemarie Morrow, SKIP [facility] [place] [address] documented as of this encounter Visit Diagnoses Not on filedocumented in this encounter Care Teams Poem Writer Relationship Specialty Start Date End Date Marcio Devlin DO [address] [place] [address] PCP - General Family Medicine 11/11/17 documented as of this encounter
--- OUTSIDE RECORDS SUMMARY | 2024-06-14 15:30 | XMS_ITS | Encounter Summary ---
Author Organization [facility] [place] [address] Care Team Providers Care Rewriter Name Role Phone Marcio Devlin DO Primary Care Provider [phone] Encounter Details Date Type Department Care Team (Late st Contact Info) Description 03/23/2021 Refill [place] [address] Dajuan Rachel MD [facility] [place] [address] Ulcerative pancolitis without complication Social History Tobacco [...] RPH Transfer of Services Kim Funes [address] [facility] [address] Telephone Information: The [facility] has received a prescription for [...] patient has been advised to call the [facility] at [phone] with any questions or concerns on this referral. Thank you, Sierra Peters RPH 03/23/21 9:43 AM Patient understands no changes to current drug regimen were made at this time. documented in this encounter Plan of Treatment Upcoming Encounters Date Type Department Care Team (Late st Contact Info) Description 07/02/2024 2:00 PM EDT Appointment Non-Invasive [place] [address] Luis Alfredo Velazquez MD [facility] [place] [address] 07/02/2024 4:00 PM EDT Office Visit Cardiology at [address] [phone] Mars Green PA [facility] [place] [address] 07/02/2024 4:40 PM EDT Office Visit Cardiology at [address] [phone] Luis Alfredo Velazquez MD [facility] [place] [address] 07/18/2024 9:00 AM EST Hospital Encounter Non-Invasive [place] [address] Arrived 07/27/2024 3:30 PM EST Office Visit Rheumatology at [place] [phone] Gabe Fong MD [facility] [place] [address] 12/07/2024 2:30 PM EDT TH Visit (TeleHealth) [place] [address] Rosemarie Morrow APRN [facility] [place] [address] documented as of this encounter Visit Diagnoses Diagnosis Ulcerative pancolitis without complication documented in this encounter Care Teams Rewriter Relationship Specialty Start Date End Date Marcio Devlin DO [address] [place] [address] PCP - General Family Medicine 11/11/17 documented as of this encounter
--- OUTSIDE RECORDS SUMMARY | 2024-06-14 15:30 | XMS_ITS | Encounter Summary ---
Author Organization [facility] [address] Care Team Providers Care Environmental Field Services Technician Name Role Phone Marcio Devlin DO Primary Care Provider [phone] Reason for Visit * Reason Onset Date Comments Medication Refill 02/13/2021 Encounter Details Date Type Department Care Team (Late st Contact Info) Description 02/13/2021 Refill [place] [address] Dajuan Rachel MD [facility] [place] [address] Ulcerative pancolitis without complication Social History Tobacco [...] 2:00 PM EDT Appointment Non-Invasive Cardiology Lab [facility] [place] [phone] Luis Alfredo Velazquez MD [facility] [place] [address] 07/02/2024 4:00 PM EDT Office Visit Cardiology at [place] [address] Mars Green PA [facility] [place] [address] 07/02/2024 4:40 PM EDT Office Visit Cardiology at [place] [address] Luis Alfredo Velazquez MD [facility] [place] [address] 07/18/2024 9:00 AM EST Hospital Encounter Non-Invasive Cardiology Lab [place] [address] Arrived 07/27/2024 3:30 PM EST Office Visit Rheumatology at [place] [address] Gabe Fong MD [facility] [place] [address] 12/07/2024 2:30 PM EDT TH Visit (TeleHealth) Gastroenterology at [address]1000 Rosemarie Morrow APRN [facility] [place] [address] documented as of this encounter Visit Diagnoses Diagnosis Ulcerative pancolitis without complication documented in this encounter Care Teams Environmental Field Services Technician Relationship Specialty Start Date End Date Marcio Devlin DO [address] [place] [address] PCP - General Family Medicine 11/11/17 documented as of this encounter
--- OUTSIDE RECORDS SUMMARY | 2024-06-14 15:30 | XMS_ITS | Encounter Summary ---
Author Organization [facility] [place] [address] Care Team Providers Care Electric Arc Furnace Operator Name Role Phone Marcio Devlin DO Primary Care Provider [phone] Encounter Details Date Type Department Care Team (Late st Contact Info) Description 09/03/2021 Orders [place] [phone] Lola Haley, [facility] [address] [place] [address] Social History Tobacco Use Types Packs/Day Years [...] 2:00 PM EDT Appointment Non-[place] [address] Luis Alfredo Velazquez MD [facility] [place] [address] 07/02/2024 4:00 PM EDT Office Visit Cardiology at [address]1000 Mars Green, YURIY [facility] [address] 07/02/2024 4:40 PM EDT Office Visit Cardiology at [place] [address] Luis Alfredo Velazquez MD [facility] [place] [address] 07/18/2024 9:00 AM EST Hospital Encounter Non-Invasive Cardiology Lab [place] [address] Arrived 07/27/2024 3:30 PM EST Office Visit Rheumatology at [place] [address] Gabe Fong MD [facility] [place] [address] 12/07/2024 2:30 PM EDT TH Visit (TeleHealth) Gastroenterology at [place] [address] Rosemarie Morrow APRN [facility] [place] [address] documented as of this encounter Visit Diagnoses Not on filedocumented in this encounter Care Teams Electric Arc Furnace Operator Relationship Specialty Start Date End Date Marcio Devlin DO [address] [place] [address] PCP - General Family Medicine 11/11/17 documented as of this encounter
--- OUTSIDE RECORDS SUMMARY | 2024-06-14 15:30 | XMS_ITS | Encounter Summary ---
Author Organization [facility] [place] [address] Care Team Providers Care Eyeglass Frame Truer Name Role Phone Marcio Devlin DO Primary Care Provider [phone] Encounter Details Date Type Department Care Team (Latest Contact Info) Description 09/17/2021 2:30 PM EST TH Visit (TeleHealth) [place] [phone] Dajuan Rachel MD [facility] [place] [address] Ulcerative pancolitis with complication Social History Tobacco [...] Stelara every 8 weeks - Calprotectin at [facility] - Continue Labs surveillance at [facility] - will defer to Dr Fong but would recommend CBC, LFTs, every 2 weeks for 2 months. - Plan for Colonoscopy within next 3-5 months - Follow-up at colonoscopy and in the office or via telehealth with Delilah Morrow APRN in 6 months documented in this encounter Progress Notes * Dajuan Rachel MD - 09/17/2021 2:30 PM EST [facility] Gastroenterology Telehealth Visit Primary care provider: [...] ?? Colonoscopy 09/19/08 (Dr. Shady Luz at [facility]) for surveillance for dysplasia. [...] ?? Escalated to weekly Humira 11/2019. ADA ([place]) from 6 q 2wk to 12.7 qwk, as well as BID SSZ ?? Colonoscopy Oct 2019: normal rectum, mod-severe inflammation and narrowing from 6-25 cm from theanus, normal remainder of colon. Path: mild active chronic colitis in ac/tc/dc/sc, severe active colitis with ulceration in proximal rectum ?? Colonoscopy December 2020 - severe involvement of L colon, [id number] involvement of transverse and R colon. Worse compared to last exam. SSA at hepatic flexure ?? Adalimumab level ([place]) was 12.7 ?? Switched to Stelara ( 03/21/21, first infusion dose) d/t Lost of response to Humira. Stopped Uceris and sulfasalazine in January 2021. ? CURRENT MEDS: Stelara ( 03/21/21, first infusion dose) ?? Interval history: - Last visit with Delilah Morrow TEAM MANAGER 05/15/2021. - Feels much better since starting [...] No Physical Examination Performed Recent labs Reviewed [facility] labs from 08/15/2021 CBC nl. Aphos mildly elevated at 118. CRP 5.19 mg/dl. Assessment/Plan: Ms. Funes is a 61 y.o. patient with ulcerative colitis, switched to Stelara ( 03/21/21, first infusion dose) as she has lost response to Humira. Doing very well symptomatically. CRP elevated but might be related to . Suggested having calprotectin at [facility]. If elevated, would consider decreasingStelara dosing interval to 6 weeks prior to colonoscopy. Restaging colo to be done within the next 3-5 months. Plans: - Continue Stelara every 8 weeks - Calprotectin at [facility] - Continue Labs surveillance at [facility] - will defer to Dr Fong but would recommend CBC, LFTs, every 2 weeks for 2 months. - Plan for Colonoscopy within next 3-5 months - Follow-up at colonoscopy and in the office or via telehealth with Delilah Morrow APRN in 6 months I spent 30 min today reviewing the chart preparing for this visit, counseling the patient [id number] on the issues outlined above, and documenting an implementing the plan. Ms. Funes was in [place]. Freddy Rachel MD [employer] r[employer] Co-Director, [facility] Section of Gastroenterology [place] [address] documented in this encounter Plan of Treatment Upcoming Encounters Date Type Department Care Team (Late st Contact Info) Description 07/02/2024 2:00 PM EDT Appointment Non[place] [address] Luis Alfredo Velazquez MD [facility] [place] [address] 07/02/2024 4:00 PM EDT Office Visit Cardiology at [address] [address] Mars Green PA [facility] [place] [address] 07/02/2024 4:40 PM EDT Office Visit Cardiology at [address] [address] Luis Alfredo Velazquez MD [facility] [place] [place] [address] 07/18/2024 9:00 AM EST Hospital Encounter Non-Invasive Cardiology Lab [address]1000 Arrived 07/27/2024 3:30 PM EST Office Visit Rheumatology at [address]1000 Gabe Fong MD [facility] [place] [address] 12/07/2024 2:30 PM EDT TH Visit (TeleHealth) Gastroenterology at [place] [phone] Rosemarie Morrow, SKIP [facility] [place] [address] Scheduled Orders Name Type Priority Associated Diagnoses Orde r Schedule ENDOSCOPY CASE REQUEST: COLONOSCOPY, DIAGNOSTIC Procedures Routine Ulcerative pancolitis with complication Ordered: 09/17/2021 documented as of this encounter Visit Diagnoses Diagnosis Ulcerative pancolitis with complication documented in this encounter Care Teams Eyeglass Frame Truer Relationship Specialty Start Date End Date Marcio Devlin DO [address] [place] [address] PCP - General Family Medicine 11/11/17 documented as of this encounter
--- OUTSIDE RECORDS SUMMARY | 2024-06-14 15:30 | XMS_ITS | Encounter Summary ---
Author Organization [facility] [place] [address] Care Team Providers Care Optical Brightener Maker Helper Name Role Phone Marcio Devlin DO Primary Care Provider [phone] Encounter Details Date Type Department Care Team (Late st Contact Info) Description 07/09/2021 Telephone [place] [address] Cedric Azar RN Social History [...] Stelara SQ dose. Got labs done at [facility] but wasn't sure if she needed Stelara [...] EDT Appointment Non-[place] [address] Luis Alfredo Velazquez MD [facility] [place] [address] 07/02/2024 4:00 PM EDT Office Visit Cardiology at [address] [phone] Mars Green, YURIY [facility] [place] [place] [address] 07/02/2024 4:40 PM EDT Office Visit Cardiology at [address] [phone] Luis Alfredo Velazquez MD [facility] [place] [address] 07/18/2024 9:00 AM EST Hospital Encounter Non-[place] [address] Arrived 07/27/2024 3:30 PM EST Office [place] [address] Gabe Fong MD [facility] [place] [address] 12/07/2024 2:30 PM EDT TH Visit (TeleHealth) [place] [address] Rosemarie Morrow APRN [facility] [place] [address] documented as of this encounter Visit Diagnoses Not on filedocumented in this encounter Care Teams Optical Brightener Maker Helper Relationship Specialty Start Date End Date Marcio Devlin DO [address] [place] [address] [place] [address] PCP - General Family Medicine 11/11/17 documented as of this encounter
--- OUTSIDE RECORDS SUMMARY | 2024-06-14 15:30 | XMS_ITS | Encounter Summary ---
[place] [address] Care Team Providers Care Roving Frame Tender Name Role Phone Marcio Devlin DO Primary Care Provider [phone] Reason for Visit * Reason Onset Date Comments Reminder Appointment 05/15/2021 Encounter Details Date Type Department Care Team (Late st Contact Info) Description 05/15/2021 Telephone [place] [phone] Elisha Hall CMA GASTROENTEROLOGY DEPT Reminder Appointment [...] EDT Appointment Non-Invasive Cardiology Lab [place] [phone] Luis Alfredo Velazquez MD [facility] [place] [address] 07/02/2024 4:00 PM EDT Office Visit Cardiology at [address]1000 Mars Green PA [facility] [place] [address] 07/02/2024 4:40 PM EDT Office Visit Cardiology at [place] [phone] Luis Alfredo Velazquez MD [facility] [place] [address] 07/18/2024 9:00 AM EST Hospital Encounter Non-Invasive Cardiology Lab [place] [phone] Arrived 07/27/2024 3:30 PM EST Office Visit Rheumatology at [place] [phone] Gabe Fong MD [facility] [place] [address] 12/07/2024 2:30 PM EDT TH Visit (TeleHealth) Gastroenterology at [place] [phone] Rosemarie Morrow APRN [facility] [place] [address] documented as of this encounter Visit Diagnoses Not on filedocumented in this encounter Care Teams Roving Frame Tender Relationship Specialty Start Date End Date Marcio Devlin DO [address] [place] [address] PCP - General Family Medicine 11/11/17 documented as of this encounter
--- OUTSIDE RECORDS SUMMARY | 2024-06-14 15:30 | XMS_ITS | Encounter Summary ---
Author Organization [facility] [place] [address] Care Team Providers Care Repair Welder Name Role Phone Marcio Devlin DO Primary Care Provider [phone] Reason for Visit * Treatment/Therapy Plan Authorization (Routine) - Closed Specialty Diagnoses / Procedures Referred By Contac t Referred To Contact Diagnoses Ulcerative pancolitis with other complication Procedures TC USTEKINUMAB (130MG/26ML), PER 1MG, INTRAVENOUS USE inf Dajuan Rachel MD [facility] [place] [address] [facility] Infusion [address] [place] [phone] Referral ID Status Reason Start Date Expiration Date Visits Re quested Visits Authorized [id number] Closed 02/08/2021 05/11/2021 5 5 Encounter Details Date Type Department Care Team (Latest Contact Info) Description 03/21/2021 1:24 PM EDT - 03/21/2021 11:59 PM EDT Hospital Encounter [place] [address] Ulcerative pancolitis with other complication [...] by mouth daily. SUMAtriptan (IMITREX) 20 mg/actuation [place], Non-Aerosol 1 spray as needed. 11/03/2017 metFORMIN [...] puffs into the lungs daily. 02/21/2011 10/07/2023 ustekinumab (Stelara) 90 mg/mL subcutaneous injectionIndications: Ulcerative pancolitis without complication Inject 1 mL subcutaneously Every 8 Weeks. 1 Syringe 2 02/13/2021 03/23/2021 budesonide (Uceris) 9 mg tablet, delayed & ext.release Take 9 mg by mouth daily. 30 each 3 12/06/2020 07/23/2021 Humira,CF, Pen 40 mg/0.4 mL Pen Injector KitIndications:Ulcera tive pancolitis without complication INJECT 40 MG UNDER THE SKIN EVERY 7 DAYS 12 kit 12 10/17/2020 07/23/2021 sulfaSALAzine (AZULFIDINE) 500 mg tablet Take 1,000 [...] 2:00 PM EDT Appointment Non-[place] [phone] Luis Alfredo Velazquez MD [facility] [place] [address] 07/02/2024 4:00 PM EDT Office Visit Cardiology at [place] [phone] Mars Green PA [facility] [place] [address] 07/02/2024 4:40 PM EDT Office Visit Cardiology at [address] [phone] Luis Alfredo Velazquez MD [facility] [place] [address] 07/18/2024 9:00 AM EST Hospital Encounter Non-[place] [phone] Arrived 07/27/2024 3:30 PM EST Office [place] [phone] Gabe Fong MD [facility] [place] [address] 12/07/2024 2:30 PM EDT TH Visit (TeleHealth) [place] [address] Rosemarie Morrow APRN [facility] [place] [address] documented as of this encounter Visit Diagnoses [...] mL/hr documented in this encounter Care Teams Repair Welder Relationship Specialty Start Date End Date Marcio Devlin DO [address] [place] [address] PCP - General Family Medicine 11/11/17 documented as of this encounter
--- OUTSIDE RECORDS SUMMARY | 2024-06-14 15:30 | XMS_ITS | Encounter Summary ---
Author Organization [facility] [place] [address] Care Team Providers Care Border Patrol Officer Name Role Phone Marcio Devlin DO Primary Care Provider [phone] Reason for Visit * Reason Comments Medication Management Patient Education Encounter Details Date Type Department Care Team (Latest Contact Info) Description 05/16/2021 4:00 PM EDT Clinical Support [place] [address] Ulcerative pancolitis without complication Social [...] this encounter Progress Notes * Sierra Peters, [facility] - 05/16/2021 4:00 PM EDT Patient Injection/Medication [...] 2:00 PM EDT Appointment Non-[place]vasive [place] [address] Luis Alfredo Velazquez MD [facility] [place] [address] 07/02/2024 4:00 PM EDT Office Visit Cardiology at [place] [address] Mars Green PA [facility] [place] [address] 07/02/2024 4:40 PM EDT Office Visit Cardiology at [place] [address] Luis Alfredo Velazquez MD [facility] [place] [address] 07/18/2024 9:00 AM EST Hospital Encounter Non-Invasive Cardiology Lab [place] [address] Arrived 07/27/2024 3:30 PM EST Office Visit Rheumatology at [place] [address] Gabe Fong MD [facility] [place] [address] 12/07/2024 2:30 PM EDT TH Visit (TeleHealth) Gastroenterology at [place] [address] Rosemarie Morrow APRN [facility] [place] [address] documented as of this encounter Visit Diagnoses Diagnosis Ulcerative pancolitis without complication documented in this encounter Care Teams Border Patrol Officer Relationship Specialty Start Date End Date Marcio Devlin DO [address] [place] [address] PCP - General Family Medicine 11/11/17 documented as of this encounter
--- OUTSIDE RECORDS SUMMARY | 2024-06-14 15:30 | XMS_ITS | Encounter Summary ---
Author Organization [facility] [place] [address] Care Team Providers Care Journeyman Machinist Name Role Phone Marcio Devlin DO Primary Care Provider [phone] Reason for Visit * Reason Onset Date Comments Medication Refill 09/04/2021 Encounter Details Date Type Department Care Team (Late st Contact Info) Description 09/04/2021 Refill [place] [address] Lola Haley, [facility] [place] [address] Social History Tobacco Use Types Packs/Day Years [...] PM EDT Appointment Non-[place]vasive [place] [phone] Luis Alfredo Velazquez MD [facility] [place] [address] 07/02/2024 4:00 PM EDT Office Visit Cardiology at [place] [address] Mars Green PA [facility] [place] [address] 07/02/2024 4:40 PM EDT Office Visit Cardiology at [place] [address] Luis Alfredo Velazquez MD [facility] [place] [address] 07/18/2024 9:00 AM EST Hospital Encounter Non-Invasive Cardiology Lab [place] [address] Arrived 07/27/2024 3:30 PM EST Office Visit Rheumatology at [place] [address] Gabe Fong MD [facility] [place] [address] 12/07/2024 2:30 PM EDT TH Visit (TeleHealth) Gastroenterology at [place] [phone] Rosemarie Morrow, SKIP [facility] [place] [address] documented as of this encounter Visit Diagnoses Not on filedocumented in this encounter Care Teams Journeyman Machinist Relationship Specialty Start Date End Date Marcio Devlin DO [address] [place] [address] PCP - General Family Medicine 11/11/17 documented as of this encounter
--- OUTSIDE RECORDS SUMMARY | 2024-06-14 15:30 | XMS_ITS | Encounter Summary ---
[place] [address] Care Team Providers Care Wireless Manager Name Role Phone Marcio Devlin DO Primary Care Provider [phone] Reason for Visit * Reason Comments Prior Authorization Stelara 90mg/mL SOSY Encounter Details Date Type Department Care Team (Late st Contact Info) Description 02/13/2021 Specialty [place] [phone] Jacky Montalvo, [facility] Social History Tobacco Use Types Packs/Day [...] Kim Funes Patient : 1960 Patient Address: [address] [place] [phone] (home) Medication Name: STELARA 90 MG/ML SUBCUTANEOUS SYRINGE Medication ID: [id number] Patient Location: [facility] Patient Location Comment: Subscriber Insurance: [employer] ([facility]) Subscriber Insurance Comment: Fax: Physician: Dajuan BERRY Physician Comment: Sent Via: [facility] Truong: [phone] Ref/Case/PA#: Medication Strength Frequency Requested: Stelara 90mg/mL [...] STELARA 90 MG/ML SUBCUTANEOUS SYRINGE Medication ID: [id number] Case/Reference # : [id number] Denial Summary: PA denied because there was not documentation of the patient's induction dosing. GMto do an appeal. Patient Notified of Denial: No Additional Information from insurance carrier. Please see below: None For any questions relating to this denial please reach out directly to your section's specialty pharmacist, or the specialty pharmacy team at [facility] Jacky Montalvo 02/16/21 10:02 AM * Sierra Peters, [facility] - 02/13/2021 4:04 PM EDT D-H [...] Approved from: 03/06/2021 to 06/05/2021 Reference Number: [id number] Can be filled with: [facility] Patient Notified of Approval: To be contacted by [facility] for consult Additional Information regarding this Appeal: None For any questions relating to this appeal please reach out directly to your section's specialty pharmacist. Sierra Peters RPH 03/08/21 3:12 PM documented in this encounter Plan of Treatment Upcoming Encounters Date Type Department Care Team (Late st Contact Info) Description 07/02/2024 2:00 PM EDT Appointment Non[place] [address] Luis Alfredo Vealzquez MD [facility] [place] [address] 07/02/2024 4:00 PM EDT Office Visit Cardiology at [place] [phone] Mars Green PA [facility] [place] [address] 07/02/2024 4:40 PM EDT Office Visit Cardiology at [place] [address] Luis Alfredo Velazquez MD [facility] [place] [address] 07/18/2024 9:00 AM EST Hospital Encounter Non-Invasive Cardiology Lab [place] [address] Arrived 07/27/2024 3:30 PM EST Office Visit Rheumatology at [place] [address] Gabe Fong MD [facility] [place] [address] 12/07/2024 2:30 PM EDT TH Visit (TeleHealth) Gastroenterology at [place] [address] Rosemarie Morrow, [employer] [place] [address] documented as of this encounter Visit Diagnoses Not on filedocumented in this encounter Care Teams Wireless Manager Relationship Specialty Start Date End Date Marcio Devlin DO [address] [place] [address] PCP - General Family Medicine 11/11/17 documented as of this encounter
--- OUTSIDE RECORDS SUMMARY | 2024-06-14 15:30 | XMS_ITS | Encounter Summary ---
Author Organization [facility] Address [facility] [place] [address] Care Team Providers Care Bridge Manager Name Role Phone Marcio Devlin DO Primary Care Provider [phone] Encounter Details Date Type Department Care Team (Late st Contact Info) Description 07/24/2021 [place] [phone] Dajuan Rachel MD [facility] [place] [address] Ulcerative pancolitis without complication Social History Tobacco [...] PM EDT Appointment [place] [address] Luis Alfredo Velazquez MD [facility] [place] [address] 07/02/2024 4:00 PM EDT Office Visit Cardiology at [place] [address] Mars Green PA [facility] [place] [address] 07/02/2024 4:40 PM EDT Office Visit Cardiology at [place] [address] Luis Alfredo Velazquez MD [facility] [place] [address] 07/18/2024 9:00 AM EST Hospital Encounter Non-Invasive Cardiology Lab [place] [address] Arrived 07/27/2024 3:30 PM EST Office Visit Rheumatology at [place] [address] Gabe Fong MD [facility] [place] [address] 12/07/2024 2:30 PM EDT TH Visit (TeleHealth) Gastroenterology at [place] [address] Rosemarie Morrow APRN [facility] [place] [place] [address] documented as of this encounter Visit Diagnoses Diagnosis Ulcerative pancolitis without complication documented in this encounter Care Teams Bridge Manager Relationship Specialty Start Date End Date Marcio Devlin DO [address] [place] [address] PCP - General Family Medicine 11/11/17 documented as of this encounter
--- OUTSIDE RECORDS SUMMARY | 2024-06-14 15:30 | XMS_ITS | Encounter Summary ---
Author Organization [facility] Address [facility] [place] [address] Care Team Providers Care Tobacco Baler Name Role Phone Marcio Devlin DO Primary Care Provider [phone] Encounter Details Date Type Department Care Team (Late st Contact Info) Description 02/13/2021 Orders Only [place] [phone] Dajuan Rachel MD [facility] [place] [address] Social History Tobacco Use Types Packs/Day Years [...] EDT Appointment Non-[place] [address] Luis Alfredo Velazquez MD [facility] [place] [address] 07/02/2024 4:00 PM EDT Office Visit Cardiology at [place] [address] Mars Green PA [facility] [place] [address] 07/02/2024 4:40 PM EDT Office Visit Cardiology at [place] [address] Luis Alfredo Velazquez MD [facility] [place] [address] 07/18/2024 9:00 AM EST Hospital Encounter Non-Invasive Cardiology Lab [place] [address] Arrived 07/27/2024 3:30 PM EST Office Visit Rheumatology at [place] [address] Gabe Fong MD [facility] [place] [address] 12/07/2024 2:30 PM EDT TH Visit (TeleHealth) Gastroenterology at [place] [address] Rosemarie Morrow APRN [facility] [place] [address] documented as of this encounter Visit Diagnoses Not on filedocumented in this encounter Care Teams Tobacco Baler Relationship Specialty Start Date End Date Marcio Devlin DO [address] [place] [address] PCP - General Family Medicine 11/11/17 documented as of this encounter
--- OUTSIDE RECORDS SUMMARY | 2024-06-14 15:30 | XMS_ITS | Encounter Summary ---
Author Organization [facility] [place] [address] Care Team Providers Care Restaurant Floor Manager Name Role Phone Marcio Devlin DO Primary Care Provider [phone] Reason for Visit * Reason Comments Specialty Pharmacy Review Encounter Details Date Type Department Care Team (Late st Contact Info) Description 09/17/2021 Specialty [place] [phone] Berenice Novak, [facility] Social History Tobacco Use Types [...] Novak - 09/17/2021 11:59 PM EST The [facility] has completed a benefits investigation for Kim Funes to review their eligibility to fill at [facility]. Per patient's medication list they are prescribed Stelara and the medication is not able to be filled at the [facility]. documented in this encounter Plan of Treatment Upcoming Encounters Date Type Department Care Team (Late st Contact Info) Description 07/02/2024 2:00 PM EDT Appointment Non-[place] [address] Luis Alfredo Velazquez MD [facility] [place] [address] 07/02/2024 4:00 PM EDT Office Visit Cardiology at [place] [phone] Mars Green PA [facility] [place] [address] 07/02/2024 4:40 PM EDT Office Visit Cardiology at [address] [phone] Luis Alfredo Velazquez MD [facility] [place] [address] 07/18/2024 9:00 AM EST Hospital Encounter Non-[place]vasive [place] [address] Arrived 07/27/2024 3:30 PM EST Office Visit Rheumatology at [place] [phone] Gabe Fong MD [facility] [place] [address] 12/07/2024 2:30 PM EDT TH Visit (TeleHealth) [place] [address] Rosemarie Morrow APRN [facility] [place] [address] documented as of this encounter Visit Diagnoses Not on filedocumented in this encounter Care Teams Restaurant Floor Manager Relationship Specialty Start Date End Date Marcio Devlin DO [address] [place] [address] PCP - General Family Medicine 11/11/17 documented as of this encounter
--- OUTSIDE RECORDS SUMMARY | 2024-06-14 15:30 | XMS_ITS | Encounter Summary ---
Author Organization [facility] [place] [address] Care Team Providers Care Banquet Waiter/Waitress Name Role Phone Marcio Devlin DO Primary Care Provider [phone] Reason for Referral * Physical Therapy (Routine) - Closed Specialty Diagnoses / Procedures Referred By Contac t Referred To Contact Diagnoses Trochanteric bursitis of left hip Saurabh Mercado MD [facility] [address] Referral ID Status Reason Start Date Expiration Date V isits Requested Visits Authorized [id number] Closed Evaluate and Treat 11/21/2021 05/20/2022 12 12 Reason for Visit * Reason Comments Follow-up L ROSS 2006 (Ginger) P AIN * Consultation (Routine) - Closed Specialty Diagnoses / Procedures Referred By Contac t Referred To Contact Orthopaedics Diagnoses Pain in left hip Mass of joint of left hip Gabe Fong MD [facility] [place] [address] [facility] [address] [place] [phone] Referral ID Status Reason Start Date Expiration Date V isits Requested Visits Authorized [id number] Closed Consult, Test & Treat 11/15/2021 11/15/2022 1 1 Encounter Details Date Type Department Care Team (Late st Contact Info) Description 11/21/2021 4:00 PM EST Office [place] [address] Saurabh Mercado MD [facility] [place] [address] Trochanteric bursitis of left hip Social History [...] 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 She reports that she is only able [...] subsidence, loosening, or periprosthetic complication. Questionnaire Responses: [facility] Surgical Postop Visit 11/21/2021 PROMIS-10 General Health [...] to hospital since recent ortho surgery Yes [facility] Date of admission 03/10/2018 Discharge date 03/11/2018 Reason you went to hospital Hysterectomy Additional surgery on same body part No ROSS Grade 6 Pain in other HIP None Back pain at this moment Very mild Satisfaction with Treatment Satisfied Choose Same Treatment Again Probably yes [facility] Response 11/21/2021 HOOS JR Scores 58.93 Spine [facility] Response 11/21/2021 HOOS JR Scores 58.93 ASSESSMENT/PLAN: [...] 2:00 PM EDT Appointment Non-Invasive [place] [address] Luis Alfredo Velazquez MD [facility] [place] [address] 07/02/2024 4:00 PM EDT Office Visit Cardiology at [address] [address] Mars Green PA [facility] [place] [address] 07/02/2024 4:40 PM EDT Office Visit Cardiology at [address] [address] Luis Alfredo Velazquez MD [facility] [place] [address] 07/18/2024 9:00 AM EST Hospital Encounter Non-Invasive [place] [phone] Arrived 07/27/2024 3:30 PM EST Office [place] [address] Gabe Fong MD [facility] [place] [address] 12/07/2024 2:30 PM EDT TH Visit (TeleHealth) [place] [address] Rosemarie Morrow, [facility] [place] [address] Scheduled Referrals Name Type Priority Associated Diagnoses Orde r Schedule Referral to Physical Therapy Outpatient Referral Routine Trochanteric bursitis of left hip Ordered: 11/21/2021 documented as of this encounter Visit Diagnoses Diagnosis Trochanteric bursitis of left hip Enthesopathy of hip region documented in this encounter Care Teams Banquet Waiter/Waitress Relationship Specialty Start Date End Date Marcio Devlin DO [address] [place] [address] PCP - General Family Medicine 11/11/17 documented as of this encounter
--- OUTSIDE RECORDS SUMMARY | 2024-06-14 15:30 | XMS_ITS | Encounter Summary ---
Author Organization [facility] Address [facility] [place] [address] Care Team Providers Care Thermostat Repairer Name Role Phone Marcio Devlin DO Primary Care Provider [phone] Encounter Details Date Type Department Care Team (Late st Contact Info) Description 07/19/2021 [place] [phone] Gabe Fong MD [facility] [address] [address] Ulcerative colitis without complications, unspecified location; High [...] [place] [address] Luis Alfredo Velazquez MD [facility] [place] [address] 07/02/2024 4:00 PM EDT Office Visit Cardiology at [place] [phone] Mars Green PA [facility] [place] [address] 07/02/2024 4:40 PM EDT Office Visit Cardiology at [place] [phone] Luis Alfredo Velazquez MD [facility] [place] [address] 07/18/2024 9:00 AM EST Hospital Encounter Non-Invasive Cardiology Lab [place] [phone] Arrived 07/27/2024 3:30 PM EST Office Visit Rheumatology at [place] [phone] Gabe Fong MD [facility] [place] [address] 12/07/2024 2:30 PM EDT TH Visit (TeleHealth) [place] [address] Rosemarie Morrow, SKIP [facility] [place] [address] documented as of this encounter Results * TPMT Activity Profile, RBC (12/13/2021 10:05 AM EDT) Tpmt Activity Profile, Rbc (MAY) Test ? Result ?Flag ??Unit ? RefValue TPMT Activity Profile, RBC ??Interpretation ? SEE COMMENTS ?*Normal* In this whole blood sample, the profile of ?activity of thiopurine methyltransferase using three ?different substrates was normal or essentially normal. ? -ADDITIONAL INFORMATION--------- ?Liquid Chromatography-[facility] [employer] Mass Spectrometry (LC-MS/MS) ?This test was developed and its performance characteristics ?determined by [facility] in a manner consistent with CLIA ?requirements. This test has not been cleared or approved by ?the U.S. Food and Drug Administration. ??6-Methylmercaptopu rine ? 3.63 ?nmol/mL/h ??3.00-6.66 ??6-Methylmercaptopu rine riboside ?7.44 ?nmol/mL/h ??5.04-9.57 ??6-Methylthioguanin e riboside ? 4.87 ?nmol/mL/h ??2.70-5.84 ??Reviewed By ?Nathaniel Serrato, Ph.D ?Test Performed by: ?[facility] ?[address] [place] [address] ?Health Insurance Sales Agent: Oc Lorenzo M.D. Ph.D.; CLIA# [id number] [facility] Blood 12/13/2021 10:0 5 AM EDT 12/13/2021 3:01 PM EDT Narrative Resulting Agency Comment Spec In Lab Gabe Fong MD LAB SEND OUT ORDERAB LES Performing Organization Address City/[facility]/[place] [address] * [id number] Qualitative (08/06/2021 10:15 AM EST) G6PD Qual Negative screening for G6PD deficiency. [facility] Blood 08/06/2021 10:1 5 AM EST 08/06/2021 10:41 AM EST Narrative Resulting Agency Comment Spec In Lab Gabe Fong MD HEMATOLOGY ORDERABLE S Performing Organization Address [facility] [place] [address] documented in this encounter Visit Diagnoses Diagnosis Ulcerative colitis without complications, unspecified location High risk medication use Encounter for long-term (current) use of other medications Inflammatory arthropathy Arthropathy, unspecified, site unspecified Morning joint stiffness Stiffness of joint, not elsewhere classified, unspecified site documented in this encounter Care Teams Thermostat Repairer Relationship Specialty Start Date End Date Marcio Devlin DO [address] [place] [address] [place] [address] PCP - General Family Medicine 11/11/17 documented as of this encounter
--- OUTSIDE RECORDS SUMMARY | 2024-06-14 15:30 | XMS_ITS | Encounter Summary ---
Author Organization [facility] [place] [address] Care Team Providers Care Crm Manager Name Role Phone Marcio Devlin DO Primary Care Provider [phone] Encounter Details Date Type Department Care Team (Late st Contact Info) Description 05/15/2021 Orders [place] [address] Rachelle Acevedo, FRANCESCA Ulcerative pancolitis without complication; Encounter for therapeutic [...] 2:00 PM EDT Appointment Non-[place] [address] Luis Alfredo Velazquez MD [facility] [place] [address] 07/02/2024 4:00 PM EDT [place] [address] [place] PA [facility] [place] [address] 07/02/2024 4:40 PM EDT Office Visit Cardiology at [place] [address] Luis Alfredo Velazquez MD [facility] [place] [address] 07/18/2024 9:00 AM EST Hospital Encounter Non-Invasive Cardiology Lab [place] [address] Arrived 07/27/2024 3:30 PM EST Office Visit Rheumatology at [place] [address] Gabe Fong MD [facility] [place] [address] 12/07/2024 2:30 PM EDT TH Visit (TeleHealth) Gastroenterology at [place] [address] Rosemarie Morrow APRN [facility] [place] [address] documented as of this encounter Visit Diagnoses Diagnosis Ulcerative pancolitis without complication Encounter for therapeutic drug level monitoring Encounter for therapeutic drug monitoring documented in this encounter Care Teams Crm Manager Relationship Specialty Start Date End Date Marcio Devlin DO [address] [place] [address] PCP - General Family Medicine 11/11/17 documented as of this encounter
--- OUTSIDE RECORDS SUMMARY | 2024-06-14 15:31 | XMS_ITS | Encounter Summary ---
Author Organization [facility] [place] [address] Care Team Providers Care Solar Electric Installer Name Role Phone Marcio Devlin DO Primary Care Provider [phone] Reason for Visit * Reason Comments Specialty Pharmacy Review Encounter Details Date Type Department Care Team (Late st Contact Info) Description 06/29/2020 Specialty [place] [phone] Berenice Novak, DISABILITY SPECIALIST Social History Tobacco Use Types Packs/Day Years [...] Novak - 06/29/2020 11:59 PM EDT The [facility] has completed a benefits investigation for Kim Graff Shantel to review their eligibility to fill at [facility]. Per patient's medication list they are prescribed Humira and is not able to be filled at the [facility]. documented in this encounter Plan of Treatment Upcoming Encounters Date Type Department Care Team (Late st Contact Info) Description 07/02/2024 2:00 PM EDT Appointment Non-Invasive Cardiology Lab [place] [phone] Luis Alfredo Velazquez MD [facility] [place] [address] 07/02/2024 4:00 PM EDT Office Visit Cardiology at [address] [place] [facility] [place] [address] 07/02/2024 4:40 PM EDT Office Visit Cardiology at [place] [phone] Luis Alfredo Velazquez MD [facility] [place] [address] 07/18/2024 9:00 AM EST Hospital Encounter Non-Invasive Cardiology Lab [place] [phone] Arrived 07/27/2024 3:30 PM EST Office Visit Rheumatology at [place] [phone] Gabe Fong MD [facility] [place] [address] 12/07/2024 2:30 PM EDT TH Visit (TeleHealth) [place] [address] Rosemarie Morrow APRN [facility] [place] [address] documented as of this encounter Visit Diagnoses Not on filedocumented in this encounter Care Teams Solar Electric Installer Relationship Specialty Start Date End Date Marcio Devlin DO [address] [place] [address] PCP - General Family Medicine 11/11/17 documented as of this encounter
--- OUTSIDE RECORDS SUMMARY | 2024-06-14 15:31 | XMS_ITS | Encounter Summary ---
Author Organization [facility] [place] [address] Care Team Providers Care Director Speech Language Name Role Phone Marcio Devlin DO Primary Care Provider [phone] Encounter Details Date Type Department Care Team (Latest Contact Info) Description 03/27/2020 9:00 AM EDT TH Visit (TeleHealth) [place] [address] Clau Cruz MD [facility] [place] [address] WRIGHT (nonalcoholic steatohepatitis) Social History Tobacco Use [...] - NEW PATIENT VISIT Chief Complaint: Kim Dajuan Perez is a 59 y.o. patient referred [...] mouth daily. ??? SUMAtriptan (IMITREX) 20 mg/actuation [place], Non-Aerosol 1 spray as needed. ??? ferrous [...] by interface; created by interface; Colonoscopy, Biopsy (89687) (01/02/2011); Colonoscopy, Remdonna Palmer, Snare (48590) (01/02/2011); Colonoscopy, Biopsy (74447) (N/A, 03/04/2017); Colonoscopy, Remv Agustínn, Snare (62741) (N/A, 03/04/2017); salpingectomy; orthopedic surgery; Vag Hyst, Rmv Tube/Ovary (69729) (N/A, 03/10/2018); Combined Ant/Post Colporrhaphy (11522) (N/A, 03/10/2018); Sling Oper Stres Incontinence (08846) (N/A, 03/10/2018); Revaginal Prolapse, Uterosacral (35487) (N/A, 03/10/2018); XR Fluoro Guided Joint Injection Large Right (Right, 03/09/2019); Colonoscopy, Diagnostic (57703) (N/A, 11/09/2019); and Colonoscopy, Biopsy (00453) (N/A, 11/09/2019). Family History: family history includes [...] telemedicine visit. The patient was located in [place] at the time of their visit. Clau Cruz MD [facility] [place] [address] documented in this encounter Plan of Treatment Upcoming Encounters Date Type Department Care Team (Late st Contact Info) Description 07/02/2024 2:00 PM EDT Appointment Non[place] [address] Luis Alfredo Velazquez MD [facility] [place] [address] 07/02/2024 4:00 PM EDT Office Visit Cardiology at [address] [address] Mars [place] PA [facility] [place] [address] 07/02/2024 4:40 PM EDT Office Visit Cardiology at [address] [address] Luis Alfredo Velazquez MD [facility] [place] [address] 07/18/2024 9:00 AM EST Hospital Encounter Non-[place] [phone] Arrived 07/27/2024 3:30 PM EST Office Visit Rheumatology at [place] [phone] Gabe Fong MD [facility] [place] [address] 12/07/2024 2:30 PM EDT TH Visit (TeleHealth) [place] [address] Rosemarie Morrow APRN [facility] [place] [address] documented as of this encounter Visit Diagnoses Diagnosis WRIGHT (nonalcoholic steatohepatitis) Other chronic nonalcoholic liver disease documented in this encounter Care Teams Director Speech Language Relationship Specialty Start Date End Date Marcio Devlin DO [address] [place] [address] PCP - General Family Medicine 11/11/17 documented as of this encounter
--- OUTSIDE RECORDS SUMMARY | 2024-06-14 15:31 | XMS_ITS | Encounter Summary ---
[place] [address] Care Team Providers Care Paint Line Operator Name Role Phone Marcio Devlin DO Primary Care Provider [phone] Encounter Details Date Type Department Care Team (Latest Contact Info) Description 11/09/2019 1:00 PM EST Laboratory Appointment Lab [address] [place] [address] Ulcerative pancolitis without complication; Adalimumab [...] 2:00 PM EDT Appointment Non-Invasive [place] [address] Luis Alfredo Velazquez MD [facility] [place] [address] 07/02/2024 4:00 PM EDT Office Visit Cardiology at [place] [phone] Mars [place] PA [facility] [place] [address] 07/02/2024 4:40 PM EDT Office Visit Cardiology at [place] [phone] Luis Alfredo Velazquez MD [facility] [place] [address] 07/18/2024 9:00 AM EST Hospital Encounter [place] [address] Arrived 07/27/2024 3:30 PM EST Office Visit Rheumatology at [place] [phone] Gabe Fong MD [facility] [place] [address] 12/07/2024 2:30 PM EDT TH Visit (TeleHealth) [place] [address] Rosemarie Morrow APRN [facility] [place] [address] documented as of this encounter Procedures Procedure [...] Adalimumab (Humira) long-term use COMPREHENSIVE METABOLIC PANEL Routine 11/09/2019 1:19 PM EST Ulcerative pancolitis without complication Adalimumab (Humira) long-term use documented in this encounter Results * Differential, Automated (11/09/2019 1:19 PM EST) Neutrophil % 63.2 % [facility] Neutrophil Absolute 4.44 1.70 - 6.10 x10(3)/[facility] Lymph % 26.1 % [facility] Lymphocytes Abs 1.8 0.9 - 3.2 x10(3)/[facility] Monocyte % 8.9 % [facility] Monocyte Abs 0.6 0.3 - 0.9 x10(3)/[facility] Eos % 1.1 % [facility] Eosinophils Abs 0.1 0.0 - 0.4 x10(3)/[facility] Basophil % 0.4 % [facility] Baso Absolute 0.0 0.0 - 0.1 x10(3)/[facility] Immature Gran % 0.30 % [facility] Comment: Immature granulocytes(IG's)percentage and absolute count will include metamyelocytes, myelocytes, and promyelocytes. Blood smears from CBCs yielding IG's will be scanned manually for concordance. If this scan disagrees with the automated IG or if promyelocytes are noted, a manual differential will be performed. Immature Gran Absolute 0.02 0.00 - 0.04 x10(3)/[facility] Blood specimen (specimen) 11/09/2019 1:19 PM EST 11/09/2019 1:30 PM EST Narrative Resulting Agency Comment Spec In Lab Froilan Sahni MD HEMATOLOGY ORDERA BLES Performing Organization Address City/State/[facility] Co de Phone Number [facility] [place] [address] * Hemogram (11/09/2019 1:19 PM EST) White Blood Cell 7.0 4.0 - 9.5 x10(3)/[facility] Red Blood Cell 4.31 4.00 - 5.21 x10(6)/[facility] Hemoglobin 12.9 11.7 - 15.5 gm/dL [facility] Hematocrit 40.2 35.7 - 45.8 % [facility] Mean Cell Volume 93.3 82.6 - 94.4 fL [facility] Mean Cell Hemoglobin 29.9 27.1 - 32.0 pg [facility] Mean Cell Hemoglobin Concentration 32.1 31.7 - 35.0 gm/dL [facility] Platelet 241 145 - 357 x10(3)/[facility] RDW Standard Deviation 45.3 37.0 - 46.0 fL [facility] RDW coefficient of variation 13.2 11.5 - 14.1 % [facility] Mean Platelet Volume 10.1 7.6 - 12.9 fL [facility] NRBC% auto 0.0 % [facility] NRBC Absolute 0.000 0.000 - 0.000 x10(3)/mcL [facility] Blood specimen (specimen) 11/09/2019 1:19 PM EST 11/09/2019 1:30 PM EST Narrative Resulting Agency Comment Spec In Lab Froilan Sahni MD HEMATOLOGY ORDERA BLES Performing Organization Address [facility]/ZIP Co de Phone Number [facility] [place] [address] * (ABNORMAL) CRP, acute inflammation (11/09/2019 1:19 PM EST) C-Reactive Protein 5.4(H) <=4.9 mg/L [facility] Blood specimen (specimen) 11/09/2019 1:19 PM EST 11/09/2019 1:30 PM EST Narrative Resulting Agency Comment Spec In Lab Froilan Sahni MD CHEMISTRY ORDERAB LES Performing Organization Address City/[facility]/ZIP Co de Phone Number [facility] [place] [address] * Comprehensive metabolic panel (non-fasting) (11/09/2019 1:19 PM EST) Glucose 124 65 - 199 mg/dL [facility] Comment:Diabetes: >=200 mg/d L plus symptoms Blood Urea Nitrogen 8 8 - 18 mg/dL [facility] Creatinine 0.80 0.70 - 1.20 mg/dL [facility] Sodium 145 135 - 145 mmol/L [facility] Potassium 3.7 3.5 - 5.0 mmol/L [facility] Comment: Please note: ??Patients with WBC >100,000 may have falsely elevated Potassium levels. ??For accurate Potassium quantification in these patients send serum separator tube (gold top) for subsequent determinations. ??Contact the Clinical Chemistry Laboratory if there are any questions. Chloride 105 98 - 107 mmol/L [facility] Carbon Dioxide 27 22 - 31 mmol/L [facility] Anion Gap 13 5 - 15 mmol/L [facility] Calcium 9.5 8.5 - 10.5 mg/dL [facility] Protein, Total 7.9 6.1 - 8.0 gm/dL [facility] Albumin 4.0 3.2 - 5.2 gm/dL [facility] Aspartate Aminotransferase 19 0 - 30 unit/L [facility] Alanine Aminotransferase 12 0 - 30 unit/L [facility] Alkaline Phosphatase 82 35 - 105 unit/L [facility] Bilirubin, Total 0.4 0.2 - 1.3 mg/dL [facility] Est Glomerular Filtration Rate 81 >=60 mL/min/1. 73 m?? [facility] Comment: The eGFR was calculated using the CKD-EPI equation. As with all creatinine based estimates of kidney function, eGFR values calculated with the CKD-EPI equation are not accurate in patients with acute kidney failure, extremes of body mass or the acutely ill. [email or web address]/[facility] CORDELLnkf eGFR 94 >=60 mL/min/1. 73 m?? [facility] Comment: The eGFR was calculated using the CKD-EPI equation. As with all creatinine based estimates of kidney function, eGFR values calculated with the CKD-EPI equation are not accurate in patients with acute kidney failure, extremes of body mass or the acutely ill. http://[employer]/[facility] Blood specimen (specimen) 11/09/2019 1:19 PM EST 11/09/2019 1:30 PM EST Narrative Resulting Agency Comment Spec In Lab Froilan Sahni MD CHEMISTRY ORDERAB LES [facility] [place] [address] * QuantiFERON-TB Gold (11/09/2019 1:19 PM EST) Quantiferon Nil 0.040 IU/mL [facility] QFT TB Ag1-Nil 0.010 IU/mL [facility] QFT TB Ag2-Nil 0.100 IU/mL [facility] Quantiferon Mitogen-Nil >10.000 IU/mL [facility] Quantiferon-TB Gold Negative Negative [facility] Quantiferon Tb Interp M. tuberculosis infection NOT likely A [...] affect immune function, or other immunological factors. [facility] Comment: The performance of the [...] MD CHEMISTRY ORDERAB LES Performing Organization Address [facility] Co de Phone Number [facility] [place] [address] * Hepatitis B Core Antibody, Total (11/09/2019 1:19 PM EST) Hepatitis B Core Antibody Negative Negative [facility] Blood specimen (specimen) 11/09/2019 1:19 PM EST 11/09/2019 1:30 PM EST Narrative Resulting Agency Comment Spec In Lab Froilan Sahni MD CHEMISTRY ORDERAB LES Performing Organization Address [facility] Co de Phone Number [facility] [place] [address] * Hepatitis B Surface Antibody (11/09/2019 1:19 PM EST) Hepatitis B Surface Antibody, Quantitative 61.4 IU/L [facility] Comment: HepB Surface Ab Quant: Unvaccinated: < 8.5 IU/L Vaccinated: > 11.5 IU/L Hepatitis B Surface Antibody Positive [facility] Comment: Patient is considered to be immune to HBV infection. Expected Results: Vaccinated: Positive Unvaccinated: Negative Blood specimen (specimen) 11/09/2019 1:19 PM EST 11/09/2019 1:30 PM EST Narrative Resulting Agency Comment Spec In Lab Froilan Sahni MD CHEMISTRY ORDERAB LES Performing Organization Address [facility] Co de Phone Number [facility] [place] [address] * Hepatitis B Surface Antigen (11/09/2019 1:19 PM EST) Hepatitis B Surface Antigen Negative Negative [facility] Blood specimen (specimen) 11/09/2019 1:19 PM EST 11/09/2019 1:30 PM EST Narrative Resulting Agency Comment Spec In Lab Froilan Sahni MD CHEMISTRY ORDERAB LES [facility] [place] [address] * Adalimumab Quant with Reflex to Antibody (11/09/2019 1:19 PM EST) Adalimumab Level (JANUARY) 6.0 mcg/mL [facility] Comment: For clinical assessment of response to therapy, adalimumab should be measured at trough. When adalimumab trough concentrations are greater than 5.0 mcg/mL, clinically relevant [id number]-hf-[id number] are unlikely and reflex testing will not be performed. REFERENCE VALUE Limit of Quantitation = 0.8 mcg/mL ADDITIONAL INFORMATION This test was developed and its performance characteristics determined by [facility] in a manner consistent with CLIA requirements. This test has not been cleared or approved by the U.S. Food and Drug Administration. Test Performed by: [facility] [place] [address] Technology Engineer: Oc Lorenzo M.D. Ph.D.; CLIA# [id number] Blood specimen (specimen) 11/09/2019 1:19 PM EST 11/10/2019 8:27 AM EST Narrative Resulting Agency Comment Spec In Lab Froilan Sahni MD LAB SEND OUT ORDE RABLES [facility] [place] [address] documented in this encounter Visit Diagnoses Diagnosis Ulcerative pancolitis without complication Adalimumab (Humira) long-term use Encounter for long-term (current) use of other medications documented in this encounter Care Teams Paint Line Operator Relationship Specialty Start Date End Date Marcio Devlin DO [address] [place] [address] PCP - General Family Medicine 11/11/17 documented as of this encounter
--- OUTSIDE RECORDS SUMMARY | 2024-06-14 15:31 | XMS_ITS | Encounter Summary ---
Author Organization [facility] [place] [address] Care Team Providers Care Retail Center Receptionist Name Role Phone Marcio Devlin DO Primary Care Provider [phone] Reason for Visit * Reason Comments Specialty Pharmacy Review Encounter Details Date Type Department Care Team (Late st Contact Info) Description 01/29/2021 Specialty [place] [phone] Berenice Novak, [facility] Social History Tobacco Use Types Packs/Day [...] Novak - 01/29/2021 11:59 PM EDT The [facility] has completed a benefits investigation for Kim Funes to review their eligibility to fill at [facility]. Per patient's medication list they are prescribed Humira and the medication is not able to be filled at the [facility]. documented in this encounter Plan of Treatment Upcoming Encounters Date Type Department Care Team (Late st Contact Info) Description 07/02/2024 2:00 PM EDT Appointment Non-Invasive [place] [address] Luis Alfredo Velazquez MD [facility] [place] [address] 07/02/2024 4:00 PM EDT Office Visit Cardiology at [address] [address] Mars Green PA [facility] [place] [address] 07/02/2024 4:40 PM EDT Office Visit Cardiology at [address] [address] Luis Alfredo Velazquez MD [facility] [place] [address] 07/18/2024 9:00 AM EST Hospital Encounter Non-Invasive [place] [address] Arrived 07/27/2024 3:30 PM EST Office [place] [address] Gabe Fong MD [facility] [place] [address] 12/07/2024 2:30 PM EDT TH Visit (TeleHealth) [place] [address] Rosemarie Morrow APRN [facility] [place] [place] [address] documented as of this encounter Visit Diagnoses Not on filedocumented in this encounter Care Teams Retail Center Receptionist Relationship Specialty Start Date End Date Marcio Devlin DO [address] [place] [address] PCP - General Family Medicine 11/11/17 documented as of this encounter
--- OUTSIDE RECORDS SUMMARY | 2024-06-14 15:31 | XMS_ITS | Encounter Summary ---
Author Organization [facility] Address [place] [address] Care Team Providers Care Fur Farmer Name Role Phone Marcio Devlin DO Primary Care Provider [phone] Encounter Details Date Type Department Care Team (Latest Contact Info) Description 08/07/2020 2:30 PM EST TH Visit (TeleHealth) [place] [phone] Gabe Fong MD [facility] [place] [address] Inflammatory arthropathy; Ulcerative colitis without complications, unspecified [...] WITH BX performed by YAQUELIN ESTRADA at [facility] ENDOSCOPY ??? PRO COLONOSCOPY, BIOPSY N/A 03/04/2017 COLONOSCOPY FLEXIBLE, WITH BX (WRVU 3.66) performed by Raúl Austin MD at [facility] ENDOSCOPY ??? PRO COLONOSCOPY, BIOPSY N/A 11/09/2019 COLONOSCOPY FLEXIBLE, WITH BX (WRVU 3.66) performed by Froilan Sahni MD at [facility] ENDOSCOPY ??? PRO COLONOSCOPY, DIAGNOSTIC N/A 11/09/2019 COLONOSCOPY, DIAGNOSTIC performed by Froilan Sahni MD at [facility] ENDOSCOPY ??? PRO COLONOSCOPY, REMV LESN, SNARE 01/02/2011 COLONOSCOPY, POLYPECTOMY, REMOVAL LESION BY SNARE performed by YAQUELIN ESTRADA at [facility] ENDOSCOPY ??? PRO COLONOSCOPY, REMV LESN, SNARE N/A 03/04/2017 COLONOSCOPY, POLYPECTOMY, REMOVAL LESION BY SNARE (WRVU 4.67) performed by Raúl Austin MD at [facility] ENDOSCOPY ??? PRO COMBINED ANT/POST COLPORRHAPHY N/A 03/10/2018 COLPORRHAPHY ANTERIOR-POSTERIOR; INC CYSTOURETHROSCOPY (WRVU 14.44) performed by Liang Fong MD at [facility] MAIN OR ??? PRO REVAGINAL PROLAPSE, UTEROSACRAL N/A 03/10/2018 COLPOPEXY, VAGINAL, INTRAPERITONEAL APPROACH (WRVU 11.66) performed by [facility]ang [facility] ??? PRO SLING OPER STRES INCONTINENCE N/A 03/10/2018 URETHRAL SUSPENSION, SLING\FASCIA OR SYNTHETIC ([facility] performed by Liang Fong MD at [facility] MAIN OR ??? PRO VAG HYST, RMV TUBE/OVARY N/A 03/10/2018 HYSTERECTOMY, VAGINAL, REMOVAL TUBE(S) & OR OVARY(S) ([facility] 15.94) performed by Liang Fong MD at [facility] MAIN OR ??? SALPINGECTOMY ??? XR FLUORO INJECTION DRAINAGE JOINT LG RIGHT Right 03/09/2019 XR Fluoro Guided Joint Injection Large Right 03/09/2019 [facility] RAD XRAY Family History Problem Relation [...] file Gets together: Not on file Attends pentecostal service: Not on file Active member of [...] mouth daily. ??? SUMAtriptan (IMITREX) 20 mg/actuation [place], Non-Aerosol 1 spray as needed. ??? ferrous [...] mouth daily. ??? SUMAtriptan (IMITREX) 20 mg/actuation [place], Non-Aerosol 1 spray as needed. ??? ferrous [...] 2:00 PM EDT Appointment Non-[place] [phone] Luis Alfredo Velazquez MD [facility] [place] [address] 07/02/2024 4:00 PM EDT Office Visit Cardiology at [address] [phone] Mars Green PA [facility] [place] [address] 07/02/2024 4:40 PM EDT Office Visit Cardiology at [address] [address] Luis Alfredo Velazquez MD [facility] [place] [address] 07/18/2024 9:00 AM EST Hospital Encounter Non-[place] [address] Arrived 07/27/2024 3:30 PM EST Office Visit Rheumatology at [place] [address] Gabe Fong MD [facility] [place] [address] 12/07/2024 2:30 PM EDT TH Visit (TeleHealth) Gastroenterology at [address] Rosemarie Morrow APRN [facility] [place] [address] documented as of this encounter Visit Diagnoses [...] location documented in this encounter Care Teams Fur Farmer Relationship Specialty Start Date End Date Marcio Devlin DO [address] [place] [address] PCP - General Family Medicine 11/11/17 documented as of this encounter
--- OUTSIDE RECORDS SUMMARY | 2024-06-14 15:31 | XMS_ITS | Encounter Summary ---
Author Organization [facility] [place] [address] Care Team Providers Care Instructional Technology Coach Name Role Phone Marcio Devlin DO Primary Care Provider [phone] Reason for Visit * Reason Comments Specialty Pharmacy Review adalimumab 40 mg/0.4 mL Encounter Details Date Type Department Care Team (Late st Contact Info) Description 08/07/2020 Specialty [place] [phone] Herminio Diehl Social History Tobacco Use Types [...] 2:00 PM EDT Appointment Non-[place] [address] Luis Alfredo Velazquez MD [facility] [place] [address] 07/02/2024 4:00 PM EDT Office Visit Cardiology at [place] [phone] Mars Green PA [facility] [place] [address] 07/02/2024 4:40 PM EDT Office Visit Cardiology at [address] [address] Luis Alfredo Velazquez MD [facility] [place] [address] 07/18/2024 9:00 AM EST Hospital Encounter Non-[place] [address] Arrived 07/27/2024 3:30 PM EST Office [place] [address] Gabe Fong MD [facility] [place] [address] 12/07/2024 2:30 PM EDT TH Visit (TeleHealth) [place] [address] Rosemarie Morrow, SYSTEMS ENGINEERING MANAGER [facility] [place] [address] documented as of this encounter Visit Diagnoses Not on filedocumented in this encounter Care Teams Instructional Technology Coach Relationship Specialty Start Date End Date Marcio Devlin DO [address] [facility] [place] [address] PCP - General Family Medicine 11/11/17 documented as of this encounter
--- OUTSIDE RECORDS SUMMARY | 2024-06-14 15:31 | XMS_ITS | Encounter Summary ---
Author Organization [facility] [place] [address] Care Team Providers Care Ortho Rn Name Role Phone Marcio Devlin DO Primary Care Provider [phone] Encounter Details Date Type Department Care Team (Late st Contact Info) Description 06/29/2020 4:00 PM EDT Office Visit [place] [phone] Clau Cruz MD [facility] [place] [address] MÉNDEZ (nonalcoholic steatohepatitis) Social History Tobacco Use [...] in 02/2006). Dr. Chan started on ursodiol [id number]. No prior liver imaging. No evidence of [...] mouth daily. ??? SUMAtriptan (IMITREX) 20 mg/actuation [place], Non-Aerosol 1 spray as needed. ??? ferrous [...] Cruz MD Section of Gastroenterology & Hepatology [address] [place] [address] 17 minutes of this 30 minute visit was spent in discussion. Cc: Marcio Devlin DO documented in this encounter Procedure Notes * Clau Cruz MD - 06/29/2020 4:00 PM EDTAssociated Order(s): FIBROSCAN Procedure(s): FIBROSCAN Pre-Procedure Diagnose(s): MÉNDEZ (nonalcoholic steatohepatitis) [facility] Liver Fibrosis Assessment Report Indication: MÉNDEZ Performed by: Clau Cruz MD Procedure: Vibration Controlled Transient Elastography (VCTE) or Fibroscan [place] Protocol: Patient's identity, procedure and site were [...] 2:00 PM EDT Appointment Non-[place] [address] Luis Alfredo Velazquez MD [facility] [place] [address] 07/02/2024 4:00 PM EDT Office Visit Cardiology at [place] [phone] Mars Green PA [facility] [place] [address] 07/02/2024 4:40 PM EDT Office Visit Cardiology at [place] [phone] Luis Alfredo Velazquez MD [facility] [place] [address] 07/18/2024 9:00 AM EST Hospital Encounter Non-[place] [address] Arrived 07/27/2024 3:30 PM EST Office Visit Rheumatology at [address] Gabe Fong MD [facility] [place] [address] 12/07/2024 2:30 PM EDT TH Visit (TeleHealth) Gastroenterology at [place] [address] Rosemarie Morrow, SKIP [facility] [place] [address] documented as of this encounter Procedures Procedure Name Priority Date/Time Associated Diagnosis Comments [id number] Routine 06/29/2020 4:00 PM EDT MÉNDEZ (nonalcoholic steatohepatitis) documented in this encounter Results * [id number] (06/29/2020 4:00 PM EDT) Narrative Clau Cruz MD - 06/29/2020 4:00 PM EDT Clau Cruz MD ? 06/29/2020 ??5:12 PM [facility] Liver Fibrosis Assessment Report Indication: ?? MÉNDEZ Performed by: ??Clau Cruz MD Procedure: Vibration Controlled Transient Elastography (VCTE) or Fibroscan [place] Protocol: Patient's identity, procedure and site were [...] disease documented in this encounter Care Teams Ortho Rn Relationship Specialty Start Date End Date Marcio Devlin DO [address] [place] [address] PCP - General Family Medicine 11/11/17 documented as of this encounter
--- OUTSIDE RECORDS SUMMARY | 2024-06-14 15:31 | XMS_ITS | Encounter Summary ---
Author Organization [facility] [place] [address] Care Team Providers Care Perfumer Name Role Phone Marcio Devlin DO Primary Care Provider [phone] Reason for Visit * Consultation (Routine) - Closed Specialty Diagnoses / Procedures Referred By Contac t Referred To Contact Endocrinology Diagnoses Ulcerative colitis without complications, unspecified location Osteopenia, unspecified location Ulcerative colitis without complications, unspecified location Osteopenia, unspecified location Gabe Fong MD [facility] [place] [address] [facility] [address] [place] [phone] Referral ID Status Reason Start Date Expiration Date V isits Requested Visits Authorized [id number] Closed Consult, Test & Treat 04/06/2020 04/06/2021 1 1 Encounter Details Date Type Department Care Team (Latest Contact Info) Description 04/28/2020 2:00 PM EDT TH Visit (TeleHealth) [place] [address] Lucrecia Park MD [facility] [place] [address] Osteopenia, unspecified location (Primary Dx); [...] Lab: check lab today or soon locally ([facility] lab) for baseline PTH, TSH, corisol, 25-vitamin [...] Marcio Devlin DO and Dr. Gabe Fong (chemical engineering intern) For the evaluation of osteopenia, worsening since [...] pleasant 60 y.o. female recently evaluated by chemical engineering intern for ankylosing spondylitis on Humira weekly for [...] mouth daily. ??? SUMAtriptan (IMITREX) 20 mg/actuation [place], Non-Aerosol 1 spray as needed. ??? ferrous [...] file Gets together: Not on file Attends adventism service: Not on file Active member of [...] Lab: check lab today or soon locally ([facility] lab) for baseline PTH, TSH, corisol, 25-vitamin [...] 2:00 PM EDT Appointment Non-[place] [address] Luis Alfredo Velazquez MD [facility] [place] [address] 07/02/2024 4:00 PM EDT Office Visit Cardiology at [address] [address] Mars Green PA [facility] [address] [place] [place], [place] [address] 07/02/2024 4:40 PM EDT Office Visit Cardiology at [address] [address] Luis Alfredo Velazquez MD [facility] [place] [address] 07/18/2024 9:00 AM EST Hospital Encounter Non-Invasive Cardiology Lab [place] [phone] Arrived 07/27/2024 3:30 PM EST Office [place] [address] Gabe Fong MD [facility] [place] [address] 12/07/2024 2:30 PM EDT TH Visit (TeleHealth) [place] [address] Rosemarie Morrow, SKIP [facility] [place] [address] documented as of this encounter Visit Diagnoses Diagnosis Osteopenia, unspecified location- Primary Controlled type 2 diabetes mellitus without complication, without long-term current use of insulin Mixed hyperlipidemia Ankylosing spondylitis of multiple sites in spine Ankylosing spondylitis documented in this encounter Care Teams Perfumer Relationship Specialty Start Date End Date Marcio Devlin DO [address] [place] [address] PCP - General Family Medicine 11/11/17 documented as of this encounter
--- OUTSIDE RECORDS SUMMARY | 2024-06-14 15:31 | XMS_ITS | Encounter Summary ---
Author Organization [facility] [place] [address] Care Team Providers Care Bank Advisor Name Role Phone Marcio Devlin DO Primary Care Provider [phone] Encounter Details Date Type Department Care Team (Late st Contact Info) Description 04/06/2020 Specialty [place] [phone] Juan Carlos Joseph Social History Tobacco Use [...] Appointment Non-Invasive [place] [phone] Luis Alfredo Velazquez MD [facility] [place] [address] 07/02/2024 4:00 PM EDT Office Visit Cardiology at [address]1000 Mars Green PA [facility] [place] [address] 07/02/2024 4:40 PM EDT Office Visit Cardiology at [place] [address] Luis Alfredo Velazquez MD [facility] [place] [address] 07/18/2024 9:00 AM EST Hospital Encounter Non[place] [address] Arrived 07/27/2024 3:30 PM EST Office Visit Rheumatology at [place] [address] Gabe Fong MD [facility] [place] [address] 12/07/2024 2:30 PM EDT TH Visit (TeleHealth) [place] [address] Rosemarie Morrow APRN [facility] [place] [address] documented as of this encounter Visit Diagnoses Not on filedocumented in this encounter Care Teams Bank Advisor Relationship Specialty Start Date End Date Marcio Devlin DO [address] [place] [address] PCP - General Family Medicine 11/11/17 documented as of this encounter
--- OUTSIDE RECORDS SUMMARY | 2024-06-14 15:31 | XMS_ITS | Encounter Summary ---
Author Organization [facility] [place] [address] Care Team Providers Care Parking Lot Attendant And Cashier Name Role Phone Marcio Devlin DO Primary Care Provider [phone] Reason for Visit * Reason Comments Medication Refill Encounter Details Date Type Department Care Team (Late st Contact Info) Description 10/17/2020 Refill [place] [address] Dajuan Rachel MD [facility] [place] [address] Ulcerative pancolitis without complication Social History Tobacco [...] 2:00 PM EDT Appointment Non[place] [address] Luis Alfredo Velazquez MD [facility] [place] [address] 07/02/2024 4:00 PM EDT Office Visit Cardiology at [place] [address] Mars Green PA [facility] [place] [address] 07/02/2024 4:40 PM EDT Office Visit Cardiology at [place] [address] Luis Alfredo Velazquez MD [facility] [place] [address] 07/18/2024 9:00 AM EST Hospital Encounter Non-Invasive Cardiology Lab [place] [address] Arrived 07/27/2024 3:30 PM EST Office Visit Rheumatology at [place] [address] Gabe Fong MD [facility] [place] [address] 12/07/2024 2:30 PM EDT TH Visit (TeleHealth) Gastroenterology at [place] [address] Rosemarie Morrow, SKIP [facility] [place] [place] [address] documented as of this encounter Visit Diagnoses Diagnosis Ulcerative pancolitis without complication documented in this encounter Care Teams Parking Lot Attendant And Cashier Relationship Specialty Start Date End Date Marcio Devlin DO [address] [place] [address] PCP - General Family Medicine 11/11/17 documented as of this encounter
--- OUTSIDE RECORDS SUMMARY | 2024-06-14 15:31 | XMS_ITS | Encounter Summary ---
Author Organization [facility] [place] [address] Care Team Providers Care Food Concession Manager Name Role Phone Marcio Devlin DO Primary Care Provider [phone] Reason for Visit * Reason Onset Date Comments Medication Refill 04/24/2020 Encounter Details Date Type Department Care Team (Late st Contact Info) Description 04/24/2020 Ref[place] [address] Dajuan Rachel MD [facility] [place] [address] Ulcerative pancolitis without complication Social History Tobacco [...] 2:00 PM EDT Appointment Non[place] [phone] Luis Alfredo Velazquez MD [facility] [place] [address] 07/02/2024 4:00 PM EDT Office Visit Cardiology at [place] [address] Mars Green PA [facility] [place] [address] 07/02/2024 4:40 PM EDT Office Visit Cardiology at [place] [address] Luis Alfredo Velazquez MD [facility] [place] [address] 07/18/2024 9:00 AM EST Hospital Encounter Non-Invasive Cardiology Lab [place] [address] Arrived 07/27/2024 3:30 PM EST Office Visit Rheumatology at [place] [address] Gabe Fong MD [facility] [place] [address] 12/07/2024 2:30 PM EDT TH Visit (TeleHealth) Gastroenterology at [place] [address] Rosemarie Morrow, SKIP [facility] [place] [address] documented as of this encounter Visit Diagnoses Diagnosis Ulcerative pancolitis without complication documented in this encounter Care Teams Food Concession Manager Relationship Specialty Start Date End Date Marcio Devlin DO [address] [place] [address] PCP - General Family Medicine 11/11/17 documented as of this encounter
--- OUTSIDE RECORDS SUMMARY | 2024-06-14 15:31 | XMS_ITS | Encounter Summary ---
Author Organization [facility] [place] [address] Care Team Providers Care Senior Sql Developer Name Role Phone Marcio Devlin DO Primary Care Provider [phone] Encounter Details Date Type Department Care Team (Late st Contact Info) Description 04/27/2020 Telephone [place] [phone] Radha Enamorado, [facility] Social History Tobacco Use Types Packs/Day [...] Notes * Telephone Encounter - Radha Enamorado, [facility] - 04/27/2020 1:59 PM EDT GAP Pattern Clerk Pre-Telemedicine Phone Note [] Patient not reached [x] Patient reached and the following information was reviewed/obtained per protocol: [x] Confirmed patient name and date of [x] Confirmed telemedicine maria c (Vidyo and Virtual Visit) is downloaded and functioning [x] Confirmed location of patient - TeleVisit is taking place in [x] [place] [] [place] [] If not on [facility], working on signing up for [facility] [x] Confirmed has completed any pre-visit questionnaires [] If has not received required pre-visit questionnaires, send via [facility] [x] Reviewed patient medications ??? adalimumab 40 mg/0.4 mL Pen Injector Kit ??? fexofenadine (DARRYN) 180 mg Tablet ??? PROAIR HFA 90 mcg/actuation HFA Aerosol Inhaler ??? metoprolol succinate (TOPROL-XL) 100 mg Tablet Sustained Release 24 hr ??? topiramate 50 mg capsule,sprinkle,ER 24hr ??? aspirin 81 mg Tablet, Delayed Release (E.C.) ??? SUMAtriptan (IMITREX) 20 mg/actuation [place], Non-Aerosol ??? ferrous sulfate (IRON) 325 mg [...] PM EDT Appointment Non-Invasive Cardiology Lab [place] Luis Alfredo Velazquez MD [facility] [place] [address] 07/02/2024 4:00 PM EDT Office Visit Cardiology at [place] [address] Mars Green PA [facility] [place] [address] 07/02/2024 4:40 PM EDT Office Visit Cardiology at [place] [address] Luis Alfredo Velazquez MD [facility] [place] [address] 07/18/2024 9:00 AM EST Hospital Encounter Non-Invasive Cardiology Lab [place] [address] Arrived 07/27/2024 3:30 PM EST Office Visit Rheumatology at [place] [address] Gabe Fong MD [facility] [place] [address] 12/07/2024 2:30 PM EDT TH Visit (TeleHealth) Gastroenterology at [place] [address] Rosemarie Morrow APRN [facility] [place] [address] documented as of this encounter Visit Diagnoses Not on filedocumented in this encounter Care Teams Senior Sql Developer Relationship Specialty Start Date End Date Marcio Devlin DO [address] [place] [address] PCP - General Family Medicine 11/11/17 documented as of this encounter
--- OUTSIDE RECORDS SUMMARY | 2024-06-14 15:31 | XMS_ITS | Encounter Summary ---
Author Organization [facility] [place] [address] Care Team Providers Care Manager Helpdesk Name Role Phone Marcio Devlin DO Primary Care Provider [phone] Reason for Visit * Auth/Cert Specialty Diagnoses / Procedures Referred By Contac t Referred To Contact Diagnoses Ulcerative colitis survey UC Procedures PRO COLONOSCOPY, DIAGNOSTIC PRO COLONOSCOPY, BIOPSY PRO COLONOSCOPY, REMV LESN, SNARE COLONOSCOPY, DIAGNOSTIC Referral ID Status Reason Start Date Expiration Date Visits Re quested Visits Authorized [id number] 1 1 Encounter Details Date Type Department Care Team (Latest Contact Info) Description 12/19/2020 11:22 AM EDT - 12/19/2020 2:23 PM EDT Hospital Encounter [place] [address] Dajuan Rachel MD [facility] [place] [address] Discharge Disposition: Home Social History Tobacco Use [...] occurs, please contact your Doctor. Please call [phone] before 8pm Mon-Fri with problems, questions or concerns. If you call after 8pm or on weekends, call the Hospital at [phone] and ask to speak to the Chemical Lab Technician system administration advisor and the butting saw operator will contact that person for you. When should you call for help? Call [phone] anytime you think you may need emergency [...] After Visit Summary and more online at [email or web address] If you would like to provide feedback about your hospital experience, please call the Office of Patient and Family Relations at . If you have received this After Visit Summary in error, please immediately return it in person to the department, or notify the [facility] Privacy Office by calling toll free at between the hours of 8AM and 5PM to arrange for our retrieval of the documents at no cost to you. Content Version: 12.2 ?? [id number] [employer]. Care instructions adapted under license by [facility]. If you have questions about a medical condition or this instruction, always ask your healthcare professional. [employer] disclaims any warranty or liability for your [...] by mouth daily. SUMAtriptan (IMITREX) 20 mg/actuation [place], Non-Aerosol 1 spray as needed. 11/03/2017 metFORMIN [...] puffs into the lungs daily. 02/21/2011 10/07/2023 budesonide (Uceris) 9 mg tablet, delayed & ext.release Take 9 mg by mouth daily. 30 each 3 12/06/2020 07/23/2021 MORENITA Ortega, Pen 40 mg/0.4 mL Pen Injector KitIndications:Ulcerative pancolitis without complication INJECT 40 MG UNDER THE SKIN EVERY 7 DAYS 12 kit 12 10/17/2020 07/23/2021 fluticasone (FLONASE) 50 mcg/Actuation nasal spray 2 sprays by Each Nare route daily. 02/07/2021 sulfaSALAzine (AZULFIDINE) 500 mg tablet Take 1,000 [...] EDT Appointment Non-Invasive Cardiology Lab [place] [phone] Luis Alfredo Velazquez MD [facility] [place] [address] 07/02/2024 4:00 PM EDT Office Visit Cardiology at [address] [place] [facility] [place] [address] 07/02/2024 4:40 PM EDT Office Visit Cardiology at [place] [phone] Luis Alfredo Velazquez MD [facility] [place] [address] 07/18/2024 9:00 AM EST Hospital Encounter Non-Invasive Cardiology Lab [place] [phone] Arrived 07/27/2024 3:30 PM EST Office Visit Rheumatology at [place] [phone] Gabe Fong MD [facility] [place] [address] 12/07/2024 2:30 PM EDT TH Visit (TeleHealth) Gastroenterology at [place] [phone] Rosemarie Morrow APRN [facility] [place] [address] documented as of this encounter Procedures Procedure [...] Routine 12/19/2020 12:53 PM EDT Colonoscopy, Biopsy ([id number]) 12/19/2020 12:34 PM EDT survey UC COLONOSCOPY Routine 12/19/2020 12:03 PM EDT documented in this encounter Results * Specimen to Pathology (12/19/2020 1:20 PM EDT) AP Specimen 12/19/2020 1:20 PM EDT 12/19/2020 1:21 PM EDT Narrative [facility] - 12/19/2020 1:21 PM EDT Specimen requisition ordered. ??Separate Pathology report to follow L Jose Rachel MD PATHOLOGY/CYTOLOGY O RDERABLES [facility] [place] [address] * Specimen to Pathology (12/19/2020 1:20 PM EDT) AP Specimen 12/19/2020 1:20 PM EDT 12/19/2020 1:21 PM EDT Narrative [facility] - 12/19/2020 1:21 PM EDT Specimen requisition ordered. ??Separate Pathology report to follow L Jose Rachel MD PATHOLOGY/CYTOLOGY O IRMA Performing Organization Address City/[facility]/ZIP [place] [address] * Specimen to Pathology (12/19/2020 1:20 PM EDT) AP Specimen 12/19/2020 1:20 PM EDT 12/19/2020 1:21 PM EDT Narrative [facility] - 12/19/2020 1:21 PM EDT Specimen requisition ordered. ??Separate Pathology report to follow L Jose Rachel MD PATHOLOGY/CYTOLOGY O IRMA Performing Organization Address [facility]/[place] [address] * Specimen to Pathology (12/19/2020 1:20 PM EDT) AP Specimen 12/19/2020 1:20 PM EDT 12/19/2020 1:21 PM EDT Narrative [facility] - 12/19/2020 1:21 PM EDT Specimen requisition ordered. ??Separate Pathology report to follow L Joes Rachel MD PATHOLOGY/CYTOLOGY O IRMA Performing Organization Address [facility]/[place] [address] * Specimen to Pathology (12/19/2020 1:20 PM EDT) AP Specimen 12/19/2020 1:20 PM EDT 12/19/2020 1:21 PM EDT Narrative [facility] - 12/19/2020 1:21 PM EDT Specimen requisition ordered. ??Separate Pathology report to follow L Jose Rachel MD PATHOLOGY/CYTOLOGY O IRMA Performing Organization Address City/[facility]/[place] [address] * Specimen to Pathology (12/19/2020 1:20 PM EDT) AP Specimen 12/19/2020 1:20 PM EDT 12/19/2020 1:20 PM EDT Narrative [facility] - 12/19/2020 1:20 PM EDT Specimen requisition ordered. ??Separate Pathology report to follow L Jose Rachel MD PATHOLOGY/CYTOLOGY O IRMA Performing Organization Address [facility]/[place] [address] * Specimen to Pathology (12/19/2020 1:20 PM EDT) AP Specimen 12/19/2020 1:20 PM EDT 12/19/2020 1:20 PM EDT Narrative [facility] - 12/19/2020 1:20 PM EDT Specimen requisition ordered. ??Separate Pathology report to follow L Jose Rachel MD PATHOLOGY/CYTOLOGY O IRMA Performing Organization Address [facility] de Phone Number [facility] [place] [address] * Surgical Pathology Report (12/19/2020 12:53 PM EDT) Final Diagnosis [id number] ? Location: 4T; EA07; A The signing [...] MD Verified: ??12/26/2020 15:38 ??Pathologist Performed at: ??-[facility] Dept. of Pathology, [place], [place] ADDITIONAL STUDIES Immunohistochemistry Studies: Formalin-fixed, paraffin-embedded [...] labeled G1-G2. ??elisa 12/26/2020 3:38 PM EDT [facility] GI Biopsy 12/19/2020 12:5 3 [...] L Jose Rachel MD PATHOLOGY/CYTOLOGY O RDERABLES [facility] [place] [address] * COLONOSCOPY (12/19/2020 12:03 PM EDT) COLONOSCOPY [facility] Endoscopy Procedure Date: 12/19/2020 12:03 PM ? Patient Name: Kim Funes ? N: [id number] ? Date of : 1960 ? Age: 60 ? Order #: [id number] ? Instrument Name: [id number] ? Procedure: ? Colonoscopy Patient Profile: ? This is a 60 year old female. This ? patient has ulcerative pancolitis, is ? taking adalimumab and sulfasalazine ? and is experiencing mild symptoms. Providers: ? Freddy Rachel MD, Sandoval Helton, ? RN, Codi Roberto MD: ? Medicines: ? Midazolam mg IV, [...] preparation was evaluated using ? the BBPS ([place] Bowel Preparation ? Scale) with scores of: [...] involvement of the left colon ? and tgni-nk-kopighph involvement of ? the transverse and right [...] Starting on e 12/19/20 at 1239, Until Fri12/19/20 at 1623, Intra-Operative (Intra-Procedure), Routine 1239 (Given - Provid er: Sandoval Helton RN)1242 (Given - Provider: Sandoval Helton RN) documented in this encounter Care Teams Manager Helpdesk Relationship Specialty Start Date End Date Marcio Devlin DO [address] [place] [address] PCP - General Family Medicine 11/11/17 documented as of this encounter
--- OUTSIDE RECORDS SUMMARY | 2024-06-14 15:31 | XMS_ITS | Encounter Summary ---
[place] [address] Care Team Providers Care Senior Insight Manager International Name Role Phone Marcio Devlin DO Primary Care Provider [phone] Reason for Visit * Reason Comments Prior Authorization Humira 40 mg/0.4 ml PNKT Encounter Details Date Type Department Care Team (Late st Contact Info) Description 04/06/2020 Specialty [place] [phone] Dennis Solorzano, BRYCE Social History Tobacco Use [...] Graff Shantel Patient : 1960 Patient Address: [address] [place] [phone] (home) Medication Name: HUMIRA(CF) PEN 40 MG/0.4 ML SUBCUTANEOUS KIT Medication ID: [id number] Patient Location: Patient Location Comment: Subscriber Insurance: Subscriber Insurance Comment: [address] Fax: Physician: Renee KEENE Physician Comment: Sent Via: Telephone Truong: Ref/Case/PA#: [id number] Medication Strength Frequency Requested: Humira Pen 40 mg/0.4 ml PNKT Inject 40 mg (1 Pen) Subcutaneously Every 7 Days Qty/Day Supply: New Start: Renewal Diagnosis & ICD-10 Code: Ulcerative Pancolitis K51.00 Ankylosing Spondylitis M45.9 Patient Notified: Yes Submission Notes: Reauthorization * Dennis Solorzano CPHT - 04/06/2020 11:54 AM EDT [facility], Prior Authorization Approval Medication Name: HUMIRA(CF) PEN 40 MG/0.4 ML SUBCUTANEOUS KIT Medication ID: [id number] Fillable at [facility]: No Approval Dates: 04/10/2020 to 04/09/2021 Insurance requirements/notes: Ins Requires Patient Fill With [facility]. Other Notes: None Case/Reference #: [id number] Approval notification Received via: Telephone Copay: N/A Copay assistance: None Copay Notes: N/A Insurance mandated Pharmacy: [facility] staff will be reaching out to the patient to inform them of their medication's approval [facility] insurance. If applicable, a pharmacist will speak with the patient to offer our specialty pharmacy services and to arrange delivery of their medication. documented in this encounter Plan of Treatment Upcoming Encounters Date Type Department Care Team (Late st Contact Info) Description 07/02/2024 2:00 PM EDT Appointment Non-Invasive [place] [phone] Luis Alfredo Velazquez MD [facility] [place] [address] 07/02/2024 4:00 PM EDT Office [place] [address] [place] [facility] [place] [address] 07/02/2024 4:40 PM EDT Office Visit Cardiology at [place] [phone] Luis Alfredo Velazquez MD [facility] [place] [address] 07/18/2024 9:00 AM EST Hospital Encounter Non-Invasive [place] [phone] Arrived 07/27/2024 3:30 PM EST Office Visit Rheumatology at [place] [phone] Gabe Fong MD [facility] [place] [address] 12/07/2024 2:30 PM EDT TH Visit (TeleHealth) [place] [address] Rosemarie Keene, SKIP [facility] GASTROENTEROLOGY [place], [place] [phone] documented as of this encounter Visit Diagnoses Not on filedocumented in this encounter Care Teams Senior Insight Manager International Relationship Specialty Start Date End Date Marcio Devlin DO [address] [place] [address] PCP - General Family Medicine 11/11/17 documented as of this encounter
--- OUTSIDE RECORDS SUMMARY | 2024-06-14 15:31 | XMS_ITS | Encounter Summary ---
Author Organization [facility] [place] [address] Care Team Providers Care News Writer Name Role Phone Marcio Devlin DO Primary Care Provider [phone] Reason for Referral * Consultation (Routine) - Closed Specialty Diagnoses / Procedures Referred By Contac t Referred To Contact Gastroenterology Diagnoses Ulcerative pancolitis without complication colo- Ulcerative colitis restaging and surveillance. November 2020. Can be with any IBD provider. Dajuan Rachel MD [facility] [place] [address] [facility] [address] [place] [address] Referral ID Status Reason Start Date Expiration Date V isits Requested Visits Authorized [id number] Closed Consult, Test & Treat 08/28/2020 08/28/2021 1 1 Encounter Details Date Type Department Care Team (Latest Contact Info) Description 08/28/2020 2:30 PM EST TH Visit (TeleHealth) [place] [address] Dajuan Rachel MD [facility] [place] [address] Ulcerative pancolitis without complication Social [...] last colonoscopy 09/19/08 ([facility] [...] mouth daily. ??? SUMAtriptan (IMITREX) 20 mg/actuation [place], Non-Aerosol 1 spray as needed. ??? ferrous [...] by interface; created by interface; Colonoscopy, Biopsy (31639) (01/02/2011); Colonoscopy, Remv Lesn, Snare (82818) (01/02/2011); Colonoscopy, Biopsy (97223) (N/A, 03/04/2017); Colonoscopy, Remv Lesn, Snare (07862) (N/A, 03/04/2017); salpingectomy; orthopedic surgery; Vag Hyst, Rmv Tube/Ovary (80666) (N/A, 03/10/2018); Combined Ant/Post Colporrhaphy (41026) (N/A, 03/10/2018); Sling Oper Stres Incontinence (16856) (N/A, 03/10/2018); Revaginal Prolapse, Uterosacral (07861) (N/A, 03/10/2018); XR Fluoro Guided Joint Injection Large Right (Right, 03/09/2019); Colonoscopy, Diagnostic (79771) (N/A, 11/09/2019); and Colonoscopy, Biopsy (80410) (N/A, 11/09/2019). Family History: family history includes [...] Labs were reviewed from March. Adalimumab level (higginson) was 12.7. CBC, ESR, CMP were unremarkable. [...] calprotectin that was done in March from [facility] - Continue Humira weekly - Plan on repeat colonoscopy in November 2020 - Recommended annual flu as well as COVID-19 vaccination - Follow in IBD clinic in December following colonoscopy. The patient was in [place] during this video telehealth visit. 15 of the 20 minutes were spent cjee-bs-pnhy counseling the patient in the issues above. Freddy Rachel MD L D Rnfinance specialist Co-Director, [facility] Section of [place]astroenter[place] [address] documented in this encounter Plan of Treatment Upcoming Encounters Date Type Department Care Team (Late st Contact Info) Description 07/02/2024 2:00 PM EDT Appointment Non-Invasive Cardiology Lab [place] [phone] Luis Alfredo Velazquez MD [facility] [place] [address] 07/02/2024 4:00 PM EDT Office Visit Cardiology at [place] [phone] [place] [facility] [place] [address] 07/02/2024 4:40 PM EDT Office Visit Cardiology at [address] [phone] Luis Alfredo Velazquez MD [facility] [place] [address] 07/18/2024 9:00 AM EST Hospital Encounter Non-[place] [address] Arrived 07/27/2024 3:30 PM EST Office [place] [phone] Gabe Fong MD [facility] [address] 12/07/2024 2:30 PM EDT TH Visit (TeleHealth) [place] [address] Rosemarie Morrow, EXTRACTION SUPERVISOR [facility] [place] [address] Scheduled Referrals Name Type Priority Associated Diagnoses Order Schedule Referral to Gastroenterology Outpatient Referral Routine Ulcerative pancolitis without complication Ordered: 08/28/2020 documented as of this encounter Visit Diagnoses Diagnosis Ulcerative pancolitis without complication documented in this encounter Care Teams News Writer Relationship Specialty Start Date End Date Marcio Devlin DO [address] [place] [address] PCP - General Family Medicine 11/11/17 documented as of this encounter
--- OUTSIDE RECORDS SUMMARY | 2024-06-14 15:31 | XMS_ITS | Encounter Summary ---
Author Organization [facility]ly [facility] Address [facility] [place] [address] Care Team Providers Care Termite Technician Name Role Phone Marcio Devlin DO Primary Care Provider [phone] Encounter Details Date Type Department Care Team (Late st Contact Info) Description 11/09/2019 Orders Only [place] [phone] Froilan Sahni MD [facility] [place] [address] Ulcerative pancolitis without complication; Adalimumab (Humira) long-term [...] 2:00 PM EDT Appointment Non-Invasive [place] [address] Luis Alfredo Velazquez MD [facility] [place] [address] 07/02/2024 4:00 PM EDT Office Visit Cardiology at [place] [phone] [place] [facility] CARDIOLOGY [place], [place] [phone] 07/02/2024 4:40 PM EDT [place] [address] Luis Alfredo Velazquez MD [facility] [place] [address] 07/18/2024 9:00 AM EST Hospital Encounter Non-[place] [address] Arrived 07/27/2024 3:30 PM EST Office Visit Rheumatology at [address] Gabe Fong MD [facility] [place] [address] 12/07/2024 2:30 PM EDT TH Visit (TeleHealth) Gastroenterology at [place] [phone] Rosemarie Morrow APRN [facility] [place] [address] documented as of this encounter Results * Adalimumab Quant with Reflex to Antibody (11/09/2019 1:19 PM EST) Adalimumab Level (JANUARY) 6.0 mcg/mL [facility] Comment: For clinical assessment of response to therapy, adalimumab should be measured at trough. When adalimumab trough concentrations are greater than 5.0 mcg/mL, clinically relevant zeudhjmirh-gn-yikcqcqlel are unlikely and reflex testing will not be performed. REFERENCE VALUE Limit of Quantitation = 0.8 mcg/mL ADDITIONAL INFORMATION This test was developed and its performance characteristics determined by [facility] in a manner consistent with CLIA requirements. This test has not been cleared or approved by the U.S. Food and Drug Administration. Test Performed by: [address] [address] Manager Software Development: Oc Lorenzo M.D. Ph.D.; CLIA# [id number] Blood specimen (specimen) 11/09/2019 1:19 PM EST 11/10/2019 8:27 AM EST Narrative Resulting Agency Comment Spec In Lab Froilan Sahni MD LAB SEND OUT ORDE RABLES Performing Organization Address [facility] Co de Phone Number [facility] [place] [address] * Hepatitis B Surface Antigen (11/09/2019 1:19 PM EST) Hepatitis B Surface Antigen Negative Negative [facility] Blood specimen (specimen) 11/09/2019 1:19 PM EST 11/09/2019 1:30 PM EST Narrative Resulting Agency Comment Spec In Lab Froilan Sahni MD CHEMISTRY ORDERAB LES Performing Organization Address [facility] Co de Phone Number [facility] [place] [address] * Hepatitis B Surface Antibody (11/09/2019 1:19 PM EST) Hepatitis B Surface Antibody, Quantitative 61.4 IU/L [facility] Comment: HepB Surface Ab Quant: Unvaccinated: < 8.5 IU/L Vaccinated: > 11.5 IU/L Hepatitis B Surface Antibody Positive [facility] Comment: Patient is considered to be immune to HBV infection. Expected Results: Vaccinated: Positive Unvaccinated: Negative Blood specimen (specimen) 11/09/2019 1:19 PM EST 11/09/2019 1:30 PM EST Narrative Resulting Agency Comment Spec In Lab Froilan Sahni MD CHEMISTRY ORDERAB LES Performing Organization Address City/[facility]/ZIP Co de Phone Number [facility] [place] [address] * Hepatitis B Core Antibody, Total (11/09/2019 1:19 PM EST) Pathologist [facility] Hepatitis B Core Antibody Negative Negative [facility] Blood specimen (specimen) 11/09/2019 1:19 PM EST 11/09/2019 1:30 PM EST Narrative Resulting Agency Comment Spec In Lab Froilan Sahni MD CHEMISTRY ORDERAB LES Performing Organization Address City/[facility]/ZIP Co de Phone Number [facility] [place] [address] * QuantiFERON-TB Gold (11/09/2019 1:19 PM EST) Pathologist [facility] Quantiferon Nil 0.040 IU/mL [facility] QFT TB Ag1-Nil 0.010 IU/mL [facility] QFT TB Ag2-Nil 0.100 IU/mL [facility] Quantiferon Mitogen-Nil >10.000 IU/mL [facility] Quantiferon-TB Gold Negative Negative [facility] Quantiferon Tb Interp M. tuberculosis infection NOT [...] affect immune function, or other immunological factors. [facility] Comment: The performance of the [...] MD CHEMISTRY ORDERAB LES Performing Organization Address City/State/[facility] Co de Phone Number [facility] [place] [address] * Comprehensive metabolic panel (non-fasting) (11/09/2019 1:19 PM EST) Glucose 124 65 - 199 mg/dL [facility] Comment:Diabetes: >=200 mg/d L plus symptoms Blood Urea Nitrogen 8 8 - 18 mg/dL [facility] Creatinine 0.80 0.70 - 1.20 mg/dL [facility] [...] questions. Chloride 105 98 - 107 mmol/L [facility] Carbon Dioxide 27 22 - 31 mmol/L [facility] Anion Gap 13 5 - 15 mmol/L [facility] Calcium 9.5 8.5 - 10.5 mg/dL [facility] Protein, Total 7.9 6.1 - 8.0 gm/dL [facility] Albumin 4.0 3.2 - 5.2 gm/dL [facility] Aspartate Aminotransferase 19 0 - 30 unit/L [facility] Alanine Aminotransferase 12 0 - 30 unit/L [facility] Alkaline Phosphatase 82 35 - 105 unit/L [facility] Bilirubin, Total 0.4 0.2 - 1.3 mg/dL [facility] Est Glomerular Filtration Rate 81 >=60 mL/min/1. 73 m?? [facility] Comment: The eGFR was calculated using the CKD-EPI equation. As with all creatinine based estimates of kidney function, eGFR values calculated with the CKD-EPI equation are not accurate in patients with acute kidney failure, extremes of body mass or the acutely ill. [email or web address] OK[facility] CITYnkf eGFR 94 >=60 mL/min/1. 73 m?? [facility] Comment: The eGFR was calculated using the CKD-EPI equation. As with all creatinine based estimates of kidney function, eGFR values calculated with the CKD-EPI equation are not accurate in patients with acute kidney failure, extremes of body mass or the acutely ill. [email or web address] [place] CITYnkf Blood specimen (specimen) 11/09/2019 1:19 PM EST 11/09/2019 1:30 PM EST Narrative Resulting Agency Comment Spec In Lab Froilan Sahni MD CHEMISTRY ORDERAB LES Performing Organization Address City/[facility]/ZIP Co de Phone Number [facility] [place] [address] * (ABNORMAL) CRP, acute inflammation (11/09/2019 1:19 PM EST) C-Reactive Protein 5.4(H) <=4.9 mg/L [facility] Blood specimen (specimen) 11/09/2019 1:19 PM EST 11/09/2019 1:30 PM EST Narrative Resulting Agency Comment Spec In Lab Froilan Sahni MD CHEMISTRY ORDERAB LES Performing Organization Address [facility] Co de Phone Number [facility] [place] [address] documented in this encounter Visit Diagnoses Diagnosis Ulcerative pancolitis without complication Adalimumab (Humira) long-term use Encounter for long-term (current) use of other medications documented in this encounter Care Teams Termite Technician Relationship Specialty Start Date End Date Marcio Devlin DO [address] [place] [address] PCP - General Family Medicine 11/11/17 documented as of this encounter
--- OUTSIDE RECORDS SUMMARY | 2024-06-14 15:31 | XMS_ITS | Encounter Summary ---
Author Organization [facility] [place] [address] Care Team Providers Care Coal Picker Name Role Phone Marcio Devlin DO Primary Care Provider [phone] Encounter Details Date Type Department Care Team (Latest Contact Info) Description 01/29/2021 4:30 PM EDT TH Visit (TeleHealth) [place] [phone] Dajuan Rachel MD [facility] [place] [address] Ulcerative pancolitis without complication Social History Tobacco [...] sulfasalazine 5. Please have labs checked at [facility]; once on new medications, will need routine labs every 2 weeks at [facility] until next follow-up visit 6. Await [...] ??? Colonoscopy 09/19/08 (Dr. Shady Luz at [facility]) for surveillance for dysplasia. Areas of [...] 2020 - severe involvement of L colon, rimt-wu-ylwwfkju involvement of transverse and R colon. Worse [...] mouth daily. ??? SUMAtriptan (IMITREX) 20 mg/actuation [place], Non-Aerosol 1 spray as needed. ??? ferrous [...] by interface; created by interface; Colonoscopy, Biopsy (11282) (01/02/2011); Colonoscopy, Remv Lesn, Snare (15537) (01/02/2011); Colonoscopy, Biopsy (62487) (N/A, 03/04/2017); Colonoscopy, Remv Lesn, Snare (41000) (N/A, 03/04/2017); salpingectomy; orthopedic surgery; Vag Hyst, Rmv Tube/Ovary (95927) (N/A, 03/10/2018); Combined Ant/Post Colporrhaphy (25042) (N/A, 03/10/2018); Sling Oper Stres Incontinence (12557) (N/A, 03/10/2018); Revaginal Prolapse, Uterosacral (50950) (N/A, 03/10/2018); XR Fluoro Guided Joint Injection Large Right (Right, 03/09/2019); Colonoscopy, Diagnostic (21980) (N/A, 11/09/2019); Colonoscopy, Biopsy (65547) (N/A, 11/09/2019); and Colonoscopy, Biopsy (98701) (N/A, 12/19/2020). Family History: family history includes [...] sulfasalazine 5. Please have labs checked at [facility]; once on new medications, will need routine labs every 2 weeks at [facility] until next follow-up visit 6. Await opinion from Dr. Fong regarding medications 7. Follow-up in person or via telehealth in 8-12 weeks I spent 40 min today reviewing the chart preparing for this visit, counseling the patient rmyp-nh-llmr on the issues outlined above, and documenting an implementing the plan. The patient was in [place] during this video telehealth visit. Freddy Rachel MD Reserves Clerkrubber attacher Co-Director, [facility] Section of Gastroenterology [place] [address] documented in this encounter Plan of Treatment Upcoming Encounters Date Type Department Care Team (Late st Contact Info) Description 07/02/2024 2:00 PM EDT Appointment Non-Invasive Cardiology Lab [facility] [place] [address] Luis Alfredo Velazquez MD [facility] [place] [address] 07/02/2024 4:00 PM EDT Office Visit Cardiology at [address] [place] [facility] [address] 07/02/2024 4:40 PM EDT Office Visit Cardiology at [place] [address] Luis Alfredo Velazquez MD [facility] [place] [address] 07/18/2024 9:00 AM EST Hospital Encounter [place] [address] Arrived 07/27/2024 3:30 PM EST Office Visit Rheumatology at [place] [address] Gabe Fong MD [facility] [place] [address] 12/07/2024 2:30 PM EDT TH Visit (TeleHealth) Gastroenterology at [place] [phone] Rosemarie Morrow APRN [facility] [place] [address] documented as of this encounter Visit Diagnoses Diagnosis Ulcerative pancolitis without complication documented in this encounter Care Teams Coal Picker Relationship Specialty Start Date End Date Marcio Devlin DO [address] [place] [address] PCP - General Family Medicine 11/11/17 documented as of this encounter
--- OUTSIDE RECORDS SUMMARY | 2024-06-14 15:31 | XMS_ITS | Encounter Summary ---
Author Organization [facility] Address [facility] [place] [address] Care Team Providers Care Melter Supervisor Electric Arc Furnace Name Role Phone Marcio Devlin DO Primary Care Provider Encounter Details Date Type Department Care Team (Late st Contact Info) Description 12/06/2020 Orders [place] [phone] Dajuan Rachel MD [facility] [place] [address] Social History Tobacco Use Types Packs/Day Years [...] PM EDT Appointment Non-Invasive [place] [address] Luis Alfredo Velazquez MD [facility] [place] [address] 07/02/2024 4:00 PM EDT Office [place] [address] [place] [facility] [place] [address] 07/02/2024 4:40 PM EDT Office Visit Cardiology at [place] [address] Luis Alfredo Velazquez MD [facility] [address] 07/18/2024 9:00 AM EST Hospital Encounter Non-Invasive Cardiology Lab [place] [address] Arrived 07/27/2024 3:30 PM EST Office Visit Rheumatology at [place] [address] Gabe Fong MD [facility] [place] [address] 12/07/2024 2:30 PM EDT TH Visit (TeleHealth) [place] [address] Rosemarie Morrow APRN [facility] [place] [address] documented as of this encounter Visit Diagnoses Not on filedocumented in this encounter Care Teams Melter Supervisor Electric Arc Furnace Relationship Specialty Start Date End Date Marcio Devlin DO [address] [place] [address] PCP - General Family Medicine 11/11/17 documented as of this encounter
--- OUTSIDE RECORDS SUMMARY | 2024-06-14 15:31 | XMS_ITS | Encounter Summary ---
Author Organization [facility] [place] [address] Care Team Providers Care Collision Repair Technician Name Role Phone Marcio Devlin DO Primary Care Provider [phone] Reason for Visit * Consultation (Urgent) - Specialty Diagnoses / Procedures Referred By Missy escalera Referred To Contact Gastroenterology Diagnoses ibd Procedures consult Froilan Sahni MD [facility] [place] [address] [facility] [address] [place] [address] Referral ID Status Reason Start Date Expiration Date V isits Requested Visits Authorized [id number] 11/09/2019 11/08/2020 1 1 Encounter Details Date Type Department Care Team (Late st Contact Info) Description 11/15/2019 1:00 PM EST Office Visit [place] [address] Rosemarie Morrow, SKIP [facility] [place] [address] Ulcerative pancolitis without complication Social [...] in this encounter Progress Notes * Rosemarie Mrorow, MOTION PICTURE PROJECTIONIST APPRENTICE - 11/15/2019 1:00 PM EST GASTROENTEROLOGY, [facility] OUTPATIENT NOTES PCP: Marcio Devlin DO HPI: Kim Funes with h/o Ulcerative colitis, who was last [...] ?? Colonoscopy 09/19/08 (Dr. Shady Luz at [facility]). Areas of skip inflammation in transverse, descending, & rectosigmoid. Upon retroflexion, a rectal mucosal tear requiring subsequent admission for antibiotics. Biopsies: normal ileum, non- specific eosinophilic infiltration of the cecum, chronic inactive colitis in the descending, rectum, sigmoid, and rectum. The transverse colon revealed moderate to severe chronic, active colitis. ?? Last colonoscopy 01/03/2011 (Dr. Yaquelin Chan) - vsrm-rn-inhuotmg inflammation rectum to cecum withan inflammatory sigmoid [...] WITH BX performed by YAQUELIN CHAN at [facility] ENDOSCOPY ??? PRO COLONOSCOPY, BIOPSY N/A 03/04/2017 COLONOSCOPY FLEXIBLE, WITH BX (WRVU 3.66) performed by Raúl Austin MD at [facility] ENDOSCOPY ??? PRO COLONOSCOPY, BIOPSY N/A 11/09/2019 COLONOSCOPY FLEXIBLE, WITH BX (WRVU 3.66) performed by Froilan Sahni MD at [facility] ENDOSCOPY ??? PRO COLONOSCOPY, DIAGNOSTIC N/A 11/09/2019 COLONOSCOPY, DIAGNOSTIC performed by Froilan Sahni MD at [facility] ENDOSCOPY ??? PRO COLONOSCOPY, REMV LESN, SNARE 01/02/2011 COLONOSCOPY, POLYPECTOMY, REMOVAL LESION BY SNARE performed by YAQUELIN CHAN at [facility] ENDOSCOPY ??? PRO COLONOSCOPY, REMV LESN, SNARE N/A 03/04/2017 COLONOSCOPY, POLYPECTOMY, REMOVAL LESION BY SNARE (WRVU 4.67) performed by Raúl Austin MD at [facility] ENDOSCOPY ??? PRO COMBINED ANT/POST COLPORRHAPHY N/A 03/10/2018 COLPORRHAPHY ANTERIOR-POSTERIOR; INC CYSTOURETHROSCOPY (WRVU 14.44) performed by Liang Fong MD at [facility] MAIN OR ??? PRO REVAGINAL PROLAPSE, UTEROSACRAL N/A 03/10/2018 COLPOPEXY, VAGINAL, INTRAPERITONEAL APPROACH (WRVU 11.66) performed by Liang Fong MD at [facility] OR ??? PRO SLING OPER STRES INCONTINENCE N/A 03/10/2018 URETHRAL SUSPENSION, SLING\FASCIA OR SYNTHETIC (WRVU 12.13) performed by Liang Fong MD at [facility] MAIN OR ??? PRO VAG HYST, RMV TUBE/OVARY N/A 03/10/2018 HYSTERECTOMY, VAGINAL, REMOVAL TUBE(S) & OR OVARY(S) (WRVU 15.94) performed by Liang Fong MD at [facility] MAIN OR ??? SALPINGECTOMY ??? XR FLUORO INJECTION DRAINAGE JOINT LG RIGHT Right 03/09/2019 XR Fluoro Guided Joint Injection Large Right 03/09/2019 [facility] RAD XRAY Social History Socioeconomic History ??? [...] file Gets together: Not on file Attends lutheran service: Not on file Active member of [...] Mood normal. RECENT TESTINGS: Results for KIM FUNES ( ) as of 11/15/2019 08:20 Ref. [...] Result status: Final Resulting lab: PROVATION Value: [facility] Endoscopy Procedure Date: 11/09/2019 9:34 AM ? Patient Name: Kim Funes ? Date of : 1960 ? Age: 59 ? Order #: [id number] ? Instrument Name: [id number] ? Procedure: ? Colonoscopy Indications: ? High [...] ??dysplasia is seen. Assessment and Plan: Ms. Funes , on low-dose sulfasalazine and also Humira [...] 2:00 PM EDT Appointment Non[place] [address] Luis Alfredo Velazquez MD [facility] [place] [address] 07/02/2024 4:00 PM EDT Office Visit Cardiology at [place] [address] [place] [facility] [place] [address] 07/02/2024 4:40 PM EDT Office Visit Cardiology at [place] [address] Luis Alfredo Velazquez MD [facility] [place] [address] 07/18/2024 9:00 AM EST Hospital Encounter Non-Invasive Cardiology Lab [place] [address] Arrived 07/27/2024 3:30 PM EST Office Visit Rheumatology at [place] [address] Gabe Fong MD [facility] [place] [address] 12/07/2024 2:30 PM EDT TH Visit (TeleHealth) Gastroenterology at [place] [address] Rosemarie Morrow APRN [facility] [place] [address] documented as of this encounter Visit Diagnoses Diagnosis Ulcerative pancolitis without complication documented in this encounter Care Teams Collision Repair Technician Relationship Specialty Start Date End Date Marcio Devlin DO [address] [place] [address] PCP - General Family Medicine 11/11/17 documented as of this encounter
--- OUTSIDE RECORDS SUMMARY | 2024-06-14 15:31 | XMS_ITS | Encounter Summary ---
Author Organization [facility] [place] [address] Care Team Providers Care Global Manager Name Role Phone Marcio Devlin DO Primary Care Provider [phone] Encounter Details Date Type Department Care Team (Latest Contact Info) Description 03/27/2020 10:00 AM EDT TH Visit (TeleHealth) [place] [phone] Dajuan Rachel MD [facility] [place] [address] Ulcerative pancolitis without complication Social History Tobacco [...] calprotectin that was done in November from [facility] - Repeat fecal calprotectin now, along [...] [facility] colon[facility] mouth daily. ??? SUMAtriptan (IMITREX) 20 mg/actuation [place], Non-Aerosol 1 spray as needed. ??? ferrous [...] by interface; created by interface; Colonoscopy, Biopsy (92280) (01/02/2011); Colonoscopy, Remv Agustínn, Snare (94836) (01/02/2011); Colonoscopy, Biopsy (94749) (N/A, 03/04/2017); Colonoscopy, Remv Lesn, Snare (88216) (N/A, 03/04/2017); salpingectomy; orthopedic surgery; Vag Hyst, Rmv Tube/Ovary (29477) (N/A, 03/10/2018); Combined Ant/Post Colporrhaphy (82357) (N/A, 03/10/2018); Sling Oper Stres Incontinence (52815) (N/A, 03/10/2018); Revaginal Prolapse, Uterosacral (06925) (N/A, 03/10/2018); XR Fluoro Guided Joint Injection Large Right (Right, 03/09/2019); Colonoscopy, Diagnostic (97493) (N/A, 11/09/2019); and Colonoscopy, Biopsy (57075) (N/A, 11/09/2019). Family History: family history includes [...] level from November that was done at [facility], so we will track that down, [...] calprotectin that was done in November from [facility] - Repeat fecal calprotectin now, along [...] and discussed with Dr. Wilson Atkins MD [facility] [place] [phone] ATTENDING ADDENDUM I interviewed Ms. Funes via [...] them as documented. Freddy Rachel MD Medical Scribebuffing line set up worker Co-Director, [facility] Section of Gastroenterology [place] [address] documented in this encounter Plan of Treatment Upcoming Encounters Date Type Department Care Team (Late st Contact Info) Description 07/02/2024 2:00 PM EDT Appointment Non-[place] [phone] Luis Alfredo Velazquez MD [facility] [place] [address] 07/02/2024 4:00 PM EDT Office Visit Cardiology at [address] [phone] [place] [facility] [place] [address] 07/02/2024 4:40 PM EDT Office Visit Cardiology at [address] [phone] Luis Alfredo Velazquez MD [facility] [place] [address] 07/18/2024 9:00 AM EST Hospital Encounter Non-Invasive [place] [address] Arrived 07/27/2024 3:30 PM EST Office Visit Rheumatology at [place] [phone] Gabe Fong MD [facility] [place] [address] 12/07/2024 2:30 PM EDT TH Visit (TeleHealth) [place] [address] Rosemarie Morrow APRN [facility] [place] [address] documented as of this encounter Visit Diagnoses Diagnosis Ulcerative pancolitis without complication documented in this encounter Care Teams Global Manager Relationship Specialty Start Date End Date Marcio Devlin DO [address] [place] [address] PCP - General Family Medicine 11/11/17 documented as of this encounter
--- OUTSIDE RECORDS SUMMARY | 2024-06-14 15:31 | XMS_ITS | Encounter Summary ---
[place] [address] Care Team Providers Care Mail Teller Name Role Phone Marcio Devlin DO Primary Care Provider [phone] Reason for Visit * Reason Onset Date Comments Reminder Appointment 01/29/2021 Encounter Details Date Type Department Care Team (Late st Contact Info) Description 01/29/2021 Telephone [place] [phone] Libby Guerin CCMA Reminder Appointment Social History [...] 2:00 PM EDT Appointment Non-Invasive Cardiology Lab [place] [phone] Luis Alfredo Velazquez MD [facility] [place] [address] 07/02/2024 4:00 PM EDT Office [place] [address] Mars Green PA [facility] [place] [address] 07/02/2024 4:40 PM EDT Office Visit Cardiology at [place] [phone] Luis Alfredo Velazquez MD [facility] [place] [address] 07/18/2024 9:00 AM EST Hospital Encounter Non-Invasive Cardiology Lab [place] [phone] Arrived 07/27/2024 3:30 PM EST Office Visit Rheumatology at [place] [phone] Gabe Fong MD [facility] [place] [address] 12/07/2024 2:30 PM EDT TH Visit (TeleHealth) [place] [address] Rosemarie Morrow APRN [facility] DR GASTROENTEROLOGY [place] [phone] documented as of this encounter Visit Diagnoses Not on filedocumented in this encounter Care Teams Mail Teller Relationship Specialty Start Date End Date Marcio Devlin DO [address] [place] [address] PCP - General Family Medicine 11/11/17 documented as of this encounter
--- OUTSIDE RECORDS SUMMARY | 2024-06-14 15:31 | XMS_ITS | Encounter Summary ---
Author Organization [facility] Address [facility] [place] [address] Care Team Providers Care Van Driver Name Role Phone Marcio Devlin DO Primary Care Provider [phone] Encounter Details Date Type Department Care Team (Late st Contact Info) Description 11/15/2019 Specialty [place] [address] Berenice Novak, [facility] Social History Tobacco Use Types Packs/Day Years [...] 2:00 PM EDT Appointment Non-[place] [address] Luis Alfredo Velazquez MD [facility] [place] [address] 07/02/2024 4:00 PM EDT Office Visit Cardiology at [place] [address] Mars Green PA [facility] [place] [address] 07/02/2024 4:40 PM EDT Office Visit Cardiology at [place] [address] Luis Alfredo Velazquez MD [facility] [place] [address] 07/18/2024 9:00 AM EST Hospital Encounter [place] [address] Arrived 07/27/2024 3:30 PM EST Office Visit Rheumatology at [place] [address] Gabe Fong MD [facility] [place] [address] 12/07/2024 2:30 PM EDT TH Visit (TeleHealth) Gastroenterology at [place] [phone] Rosemarie Morrow APRN [facility] [place] [address] documented as of this encounter Visit Diagnoses Not on filedocumented in this encounter Care Teams Van Driver Relationship Specialty Start Date End Date Marcio Devlin DO [address] [place] [address] PCP - General Family Medicine 11/11/17 documented as of this encounter
--- OUTSIDE RECORDS SUMMARY | 2024-06-14 15:31 | XMS_ITS | Encounter Summary ---
Author Organization [facility] [place] [address] Care Team Providers Care Watch Assembler Name Role Phone Marcio Devlin DO Primary Care Provider [phone] Encounter Details Date Type Department Care Team (Late st Contact Info) Description 08/28/2020 Telephone [place] [address] Elisha Hall CMA GASTROENTEROLOGY DEPT Social History [...] 2:00 PM EDT Appointment Non-[place] [address] Luis Alfredo Velazquez MD [facility] [place] [address] 07/02/2024 4:00 PM EDT [place] [address] Mars Green PA [facility] [place] [address] 07/02/2024 4:40 PM EDT Office Visit Cardiology at [address] [address] Luis Alfredo Velazquez MD [facility] [address] 07/18/2024 9:00 AM EST Hospital Encounter Non-Invasive Cardiology Lab [place] [phone] Arrived 07/27/2024 3:30 PM EST Office [place] [address] Gabe Fong MD [facility] [place] [address] 12/07/2024 2:30 PM EDT TH Visit (TeleHealth) [place] [address] Rosemarie Morrow APRN [facility] [place] [address] documented as of this encounter Visit Diagnoses Not on filedocumented in this encounter Care Teams Watch Assembler Relationship Specialty Start Date End Date Marcio Devlin DO [address] [place] [address] PCP - General Family Medicine 11/11/17 documented as of this encounter
--- OUTSIDE RECORDS SUMMARY | 2024-06-14 15:31 | XMS_ITS | Encounter Summary ---
Author Organization [place] [address] Care Team Providers Care Bobbin Trucker Name Role Phone Marcio Devlin DO Primary Care Provider [phone] Reason for Visit * Reason Comments Specialty Pharmacy Review Encounter Details Date Type Department Care Team (Late st Contact Info) Description 08/28/2020 Specialty [place] [phone] Berenice Novak, [employer] Social History Tobacco Use Types Packs/Day Years [...] - 08/28/2020 11:59 PM EST The [facility] has completed a benefits investigation for Kim Graff Shantel to review their eligibility to fill at [facility]. Per patient's medication list they are prescribed Humira and the medication is not able to be filled at the [facility]. documented in this encounter Plan of Treatment Upcoming Encounters Date Type Department Care Team (Late st Contact Info) Description 07/02/2024 2:00 PM EDT Appointment Non-Invasive Cardiology Lab [place] [phone] Luis Alfredo Velazquez MD [facility] [place] [address] 07/02/2024 4:00 PM EDT Office Visit Cardiology at [address] Mars Green PA [facility] [place] [address] 07/02/2024 4:40 PM EDT Office Visit Cardiology at [place] [phone] Luis Alfredo Velazquez MD [facility] [place] [address] 07/18/2024 9:00 AM EST Hospital Encounter Non-Invasive Cardiology Lab [place] [phone] Arrived 07/27/2024 3:30 PM EST Office Visit Rheumatology at [place] [phone] Gabe Fong MD [facility] [place] [address] 12/07/2024 2:30 PM EDT TH Visit (TeleHealth) Gastroenterology at [place] [phone] Rosemarie Morrow APRN [facility] [place] [address] documented as of this encounter Visit Diagnoses Not on filedocumented in this encounter Care Teams Bobbin Trucker Relationship Specialty Start Date End Date Marcio Devlin DO [address] [place] [address] PCP - General Family Medicine 11/11/17 documented as of this encounter
--- OUTSIDE RECORDS SUMMARY | 2024-06-14 15:31 | XMS_ITS | Encounter Summary ---
Author Organization [facility], 1927–[address] [place] [address] Care Team Providers Care Finance Business Partner Name Role Phone Marcio Devlin DO Primary Care Provider [phone] Reason for Referral * Consultation (Routine) - Closed Specialty Diagnoses / Procedures Referred By Contac t Referred To Contact Endocrinology Diagnoses Ulcerative colitis without complications, unspecified location Osteopenia, unspecified location Ulcerative colitis without complications, unspecified location Osteopenia, unspecified location Gabe Fong MD [facility] [address] [place] [address] [facility] Endocrinology [address] [place] [phone] Referral ID Status Reason Start Date Expiration Date V isits Requested Visits Authorized [id number] Closed Consult, Test & Treat 04/06/2020 04/06/2021 1 1 Reason for Visit * Reason Comments Follow-up Encounter Details Date Type Department Care Team (Late st Contact Info) Description 04/06/2020 10:00 AM EDT Office [place] [address] Gabe Fong MD [facility] [address] [place] [address] Inflammatory arthropathy; Ulcerative colitis without [...] performed by YAQUELIN ESTRADA at [facility] ENDOSCOPY ??? PRO COLONOSCOPY, BIOPSY N/A 03/04/2017 COLONOSCOPY FLEXIBLE, WITH BX (WRVU 3.66) performed by Raúl Austin MD at [facility] ENDOSCOPY ??? PRO COLONOSCOPY, BIOPSY N/A 11/09/2019 COLONOSCOPY FLEXIBLE, WITH BX (WRVU 3.66) performed by Froilan Sahni MD at [facility] ENDOSCOPY ??? PRO COLONOSCOPY, DIAGNOSTIC N/A 11/09/2019 COLONOSCOPY, DIAGNOSTIC performed by Froilan Sahni MD at [facility] ENDOSCOPY ??? PRO COLONOSCOPY, REMV LESN, SNARE 01/02/2011 COLONOSCOPY, POLYPECTOMY, REMOVAL LESION BY SNARE performed by YAQUELIN ESTRADA at [facility] ENDOSCOPY ??? PRO COLONOSCOPY, REMV LESN, SNARE N/A 03/04/2017 COLONOSCOPY, POLYPECTOMY, REMOVAL LESION BY SNARE (WRVU 4.67) performed by Raúl Austin MD at [facility] ENDOSCOPY ??? PRO COMBINED ANT/POST COLPORRHAPHY N/A 03/10/2018 COLPORRHAPHY ANTERIOR-POSTERIOR; INC CYSTOURETHROSCOPY (WRVU 14.44) performed by Liang Fong MD at [facility] MAIN OR ??? PRO REVAGINAL PROLAPSE, UTEROSACRAL N/A 03/10/2018 COLPOPEXY, VAGINAL, INTRAPERITONEAL APPROACH (WRVU 11.66) [facility] ??? PRO SLING OPER STRES INCONTINENCE N/A 03/10/2018 URETHRAL SUSPENSION, SLING\FASCIA OR SYNTHETIC (WRVU 12.13) performed by Liang Fong MD at [facility] MAIN OR ??? PRO VAG HYST, RMV TUBE/OVARY N/A 03/10/2018 HYSTERECTOMY, VAGINAL, REMOVAL TUBE(S) & OR OVARY(S) ([facility] 15.94) performed by Liang Fong MD at [facility] MAIN OR ??? SALPINGECTOMY ??? XR FLUORO INJECTION DRAINAGE JOINT LG RIGHT Right 03/09/2019 XR Fluoro Guided Joint Injection Large Right 03/09/2019 [facility] RAD XRAY Family History Problem Relation [...] on phone: None Gets together: None Attends advent service: None Active member of club or [...] mouth daily. ??? SUMAtriptan (IMITREX) 20 mg/actuation [place], Non-Aerosol 1 spray as needed. ??? ferrous [...] mouth daily. ??? SUMAtriptan (IMITREX) 20 mg/actuation [place], Non-Aerosol 1 spray as needed. ??? ferrous [...] 2:00 PM EDT Appointment Non-[place]vasive [place] [address] Luis Alfredo Velazquez MD [facility] [place] [address] 07/02/2024 4:00 PM EDT Office Visit Cardiology at [address] [address] Mars Green PA [facility] [place] [address] 07/02/2024 4:40 PM EDT Office Visit Cardiology at [address] [address] Luis Alfredo Velazquez MD [facility] [place] [address] 07/18/2024 9:00 AM EST Hospital Encounter Non-Invasive Cardiology Lab [place] [phone] Arrived 07/27/2024 3:30 PM EST Office [place] [address] Gabe Fong MD [facility] [place] [address] 12/07/2024 2:30 PM EDT TH Visit (TeleHealth) Gastroenterology at [place] [phone] Rosemarie Morrow APRN [facility] [place] [address] Scheduled Referrals Name Type Priority Associated Diagnoses [...] complication documented in this encounter Care Teams Finance Business Partner Relationship Specialty Start Date End Date Marcio Devlin DO [address] [place] [address] PCP - General Family Medicine 11/11/17 documented as of this encounter
--- OUTSIDE RECORDS SUMMARY | 2024-06-14 15:31 | XMS_ITS | Encounter Summary ---
Author Organization [facility] [place] [address] Care Team Providers Care Campaign Associate Name Role Phone Marcio Devlin DO Primary Care Provider [phone] Encounter Details Date Type Department Care Team (Late st Contact Info) Description 12/07/2020 Telephone [place] [phone] Carmel[facility] Michel[facility] Social History Tobacco Use Types Packs/Day Years [...] - 12/07/2020 4:19 PM EDT Kim Funes [id number] Diagnosis/Indication: COLO ? 1. Have you ever [...] 2:00 PM EDT Appointment Non[place] [address] Luis Alfredo Velazquez MD [facility] [place] [address] 07/02/2024 4:00 PM EDT Office Visit Cardiology at [address] [address] Mars Green PA [facility] [place] [address] 07/02/2024 4:40 PM EDT Office Visit Cardiology at [address] [address] Luis Alfredo Velazquez MD [facility] [place] [address] 07/18/2024 9:00 AM EST Hospital Encounter [place] [address] Arrived 07/27/2024 3:30 PM EST Office Visit Rheumatology at [address]1000 Gabe Fong MD [facility] [place] [address] 12/07/2024 2:30 PM EDT TH Visit (TeleHealth) Gastroenterology at [place] [phone] Rosemarie Morrow APRN [facility] [place] [address] documented as of this encounter Visit Diagnoses Not on filedocumented in this encounter Care Teams Campaign Associate Relationship Specialty Start Date End Date Marcio Devlin DO [address] [place] [address] PCP - General Family Medicine 11/11/17 documented as of this encounter
--- OUTSIDE RECORDS SUMMARY | 2024-06-14 15:31 | XMS_ITS | Encounter Summary ---
Author Organization [facility] [place] [address] Care Team Providers Care Shipping Clerk/Admin Name Role Phone Marcio Devlin DO Primary Care Provider [phone] Encounter Details Date Type Department Care Team (Latest Contact Info) Description 02/05/2021 2:00 PM EDT TH Visit (TeleHealth) [place] [address] Gabe Fong MD [facility] [address] [place] [address] Ulcerative colitis without complications, unspecified location; High [...] EDT Appointment Non-[place] [phone] Luis Alfredo Velazquez MD [facility] [place] [address] 07/02/2024 4:00 PM EDT Office Visit Cardiology at [address] [phone] Mars Green PA [facility] [place] [address] 07/02/2024 4:40 PM EDT Office Visit Cardiology at [address] [phone] Luis Alfredo Velazquez MD [facility] [place] [address] 07/18/2024 9:00 AM EST Hospital Encounter Non-[place]vasive [place] [address] Arrived 07/27/2024 3:30 PM EST Office [place] [address] Gabe Fong MD [facility] [place] [address] 12/07/2024 2:30 PM EDT TH Visit (TeleHealth) [place] [phone] Rosemarie Morrow APRN [facility] [place] [address] documented as of this encounter Visit Diagnoses [...] location documented in this encounter Care Teams Shipping Clerk/Admin Relationship Specialty Start Date End Date Marcio Devlin DO [address] [place] [address] PCP - General Family Medicine 11/11/17 documented as of this encounter
--- OUTSIDE RECORDS SUMMARY | 2024-06-14 15:31 | XMS_ITS | Encounter Summary ---
Author Organization [facility] [place] [address] Care Team Providers Care Paint Mixer Machine Name Role Phone Marcio Devlin DO Primary Care Provider [phone] Reason for Visit * Reason Onset Date Comments Reminder Appointment 03/27/2020 Encounter Details Date Type Department Care Team (Late st Contact Info) Description 03/27/2020 Telephone [place] [phone] Elisha Hall CMA GASTROENTEROLOGY DEPT Reminder Appointment [...] EDT Appointment Non-Invasive Cardiology Lab [place] [phone] Luis Alfredo Velazquez MD [facility] [place] [address] 07/02/2024 4:00 PM EDT [place] [address] Mars Green PA [facility] [place] [address] 07/02/2024 4:40 PM EDT Office Visit Cardiology at [place] [phone] Luis Alfredo Velazquez MD [facility] [place] [address] 07/18/2024 9:00 AM EST Hospital Encounter Non-Invasive Cardiology Lab [place] [phone] Arrived 07/27/2024 3:30 PM EST Office Visit Rheumatology at [place] [phone] Gabe Fong MD [facility] [place] [address] 12/07/2024 2:30 PM EDT TH Visit (TeleHealth) Gastroenterology at [place] [phone] Rosemarie Morrow APRN [facility] [place] [address] documented as of this encounter Visit Diagnoses Not on filedocumented in this encounter Care Teams Paint Mixer Machine Relationship Specialty Start Date End Date Marcio Devlin DO [address] [place] [address] PCP - General Family Medicine 11/11/17 documented as of this encounter
--- OUTSIDE RECORDS SUMMARY | 2024-06-14 15:31 | XMS_ITS | Encounter Summary ---
Author Organization [facility] Address [facility] [place] [address] Care Team Providers Care Marketing Information Analyst Name Role Phone Marcio Devlin DO Primary Care Provider [phone] Reason for Visit * Reason Comments Specialty Pharmacy Review Encounter Details Date Type Department Care Team (Late st Contact Info) Description 03/27/2020 Specialty [place] [address] Berenice Novak, [facility] Social History Tobacco Use Types Packs/Day [...] 2:00 PM EDT Appointment Non-[place] [address] Luis Alfredo Velazquez MD [facility] [place] [address] 07/02/2024 4:00 PM EDT Office Visit Cardiology at [place] [address] Mars Green PA [facility] [place] [address] 07/02/2024 4:40 PM EDT Office Visit Cardiology at [place] [address] Luis Alfredo Velazquez MD [facility] [place] [address] 07/18/2024 9:00 AM EST Hospital Encounter Non-Invasive Cardiology Lab [place] [address] Arrived 07/27/2024 3:30 PM EST Office Visit Rheumatology at [place] [address] Gabe Fong MD [facility] [place] [address] 12/07/2024 2:30 PM EDT TH Visit (TeleHealth) Gastroenterology at [place] [address] Rosemarie Morrow APRN [facility] [place] [address] documented as of this encounter Visit Diagnoses Not on filedocumented in this encounter Care Teams Marketing Information Analyst Relationship Specialty Start Date End Date Marcio Devlin DO [address] [place] [address] PCP - General Family Medicine 11/11/17 documented as of this encounter
--- OUTSIDE RECORDS SUMMARY | 2024-06-14 15:31 | XMS_ITS | Encounter Summary ---
Author Organization [facility] [place] [address] Care Team Providers Care Saas Architect Name Role Phone Marcio Devlin DO Primary Care Provider [phone] Reason for Visit * Auth/Cert Specialty Diagnoses / Procedures Referred By Contac t Referred To Contact Diagnoses Ulcerative colitis survey UC Procedures PRO COLONOSCOPY, DIAGNOSTIC PRO COLONOSCOPY, BIOPSY PRO COLONOSCOPY, REMV LESN, SNARE COLONOSCOPY, DIAGNOSTIC Referral ID Status Reason Start Date Expiration Date Visits Re quested Visits Authorized [id number] 1 1 Encounter Details Date Type Department Care Team (Late st Contact Info) Description 12/19/2020 1:04 PM EDT - 12/19/2020 1:49 PM EDT [place] [address] Dajuan Rachel MD [facility] [place] [address] COLONOSCOPY FLEXIBLE, WITH BX (WRVU 3.56) Social [...] occurs, please contact your Doctor. Please call [phone] before 8pm Mon-Fri with problems, questions or concerns. If you call after 8pm or on weekends, call the Hospital at [phone] and ask to speak to the Licensed Nurse Practitioner glass scullion and the extracting machine operator will contact that person for you. When should you call for help? Call 254 anytime you think you may need emergency [...] any problems. Where can you learn more? [facility] View your After Visit Summary and more online at [email or web address] If you would like to provide feedback about your hospital experience, please call the Office of Patient and Family Relations at . If you have received this After Visit Summary in error, please immediately return it in person to the department, or notify the [facility] Privacy Office by calling toll free at between the hours of 8AM and 5PM to arrange for our retrieval of the documents at no cost to you. Content Version: 12.2 ?? [id number] [employer]. Care instructions adapted under license by [facility]. If you have questions about a medical condition or this instruction, always ask your healthcare professional. [employer] disclaims any warranty or liability for your [...] by mouth daily. SUMAtriptan (IMITREX) 20 mg/actuation Busy, Non-Aerosol 1 spray as needed. 11/03/2017 metFORMIN [...] 2:00 PM EDT Appointment Non-Invasive Cardiology Lab [place] [phone] Luis Alfredo Velazquez MD [facility] [place] [address] 07/02/2024 4:00 PM EDT Office Visit Cardiology at [address] [place] [facility] [place] [address] 07/02/2024 4:40 PM EDT Office Visit Cardiology at [place] [phone] Luis Alfredo Velazquez MD [facility] [place] [address] 07/18/2024 9:00 AM EST Hospital Encounter [place] [address] Arrived 07/27/2024 3:30 PM EST Office [place] [address] Gabe Fong MD [facility] [place] [address] 12/07/2024 2:30 PM EDT TH Visit (TeleHealth) [place] [address] Rosemarie Morrow APRN [facility] [place] [address] documented as of this encounter Procedures Procedure [...] Routine 12/19/2020 12:53 PM EDT Colonoscopy, Biopsy ([id number]) 12/19/2020 12:34 PM EDT survey UC COLONOSCOPY Routine 12/19/2020 12:03 PM EDT documented in this encounter Results * Specimen to Pathology (12/19/2020 1:20 PM EDT) AP Specimen 12/19/2020 1:20 PM EDT 12/19/2020 1:[address] [facility] - 12/19/2020 1:21 PM EDT Specimen requisition ordered. ??Separate Pathology report to follow L Jose Rachel MD PATHOLOGY/CYTOLOGY O RDERABLES [facility] [place] [address] * Specimen to Pathology (12/19/2020 1:20 PM EDT) AP Specimen 12/19/2020 1:20 PM EDT 12/19/2020 1:[address] [facility] - 12/19/2020 1:21 PM EDT Specimen requisition ordered. ??Separate Pathology report to follow L Jose Rachel MD PATHOLOGY/CYTOLOGY O IRMA Performing Organization Address [facility]/ZIP [place] [address] * Specimen to Pathology (12/19/2020 1:20 PM EDT) AP Specimen 12/19/2020 1:20 PM EDT 12/19/2020 1:[address] [facility] - 12/19/2020 1:21 PM EDT Specimen requisition ordered. ??Separate Pathology report to follow L Jose Rachel MD PATHOLOGY/CYTOLOGY O IRMA Performing Organization Address [facility] [place] [address] * Specimen to Pathology (12/19/2020 1:20 PM EDT) AP Specimen 12/19/2020 1:20 PM EDT 12/19/2020 1:[address] [facility] - 12/19/2020 1:21 PM EDT Specimen requisition ordered. ??Separate Pathology report to follow L Jose Rachel MD PATHOLOGY/CYTOLOGY O IRMA Performing Organization Address [facility]/ZIP [place] [address] * Specimen to Pathology (12/19/2020 1:20 PM EDT) AP Specimen 12/19/2020 1:20 PM EDT 12/19/2020 1:[address] [facility] - 12/19/2020 1:21 PM EDT Specimen requisition ordered. ??Separate Pathology report to follow L Jose Rachel MD PATHOLOGY/CYTOLOGY O IRMA Performing Organization Address City/[facility]/ZIP [place] [address] * Specimen to Pathology (12/19/2020 1:20 PM EDT) AP Specimen 12/19/2020 1:20 PM EDT 12/19/2020 1:[address] [facility] - 12/19/2020 1:20 PM EDT Specimen requisition ordered. ??Separate Pathology report to follow L Jose Rachel MD PATHOLOGY/CYTOLOGY O IRMA Performing Organization Address [facility] Co de Phone Number [facility] [place] [address] * Specimen to Pathology (12/19/2020 1:20 PM EDT) AP Specimen 12/19/2020 1:20 PM EDT 12/19/2020 1:[address] [facility] - 12/19/2020 1:20 PM EDT Specimen requisition ordered. ??Separate Pathology report to follow L Jose Rachel MD PATHOLOGY/CYTOLOGY O IRMA Performing Organization Address [facility] de Phone Number [facility] [place] [address] * Surgical Pathology Report (12/19/2020 12:53 PM EDT) Final Diagnosis [id number] ? Location: 4T; EA07; A The signing [...] MD Verified: ??12/26/2020 15:38 ??Pathologist Performed at: ??-[facility] Dept. of [place]ology, [place], [place] ADDITIONAL STUDIES Immunohistochemistry Studies: Formalin-fixed, paraffin-embedded [...] labeled G1-G2. ??elisa 12/26/2020 3:[address] [facility] GI Biopsy 12/19/2020 12:5 3 [...] MD PATHOLOGY/CYTOLOGY O RDERABLES Performing Organization Address [facility]/State/ZIP Co de Phone Number [facility] [place] [address] * COLONOSCOPY (12/19/2020 12:03 PM EDT) COLONOSCOPY [facility] Endoscopy Procedure Date: 12/19/2020 12:03 PM ? Patient Name: Kim Funes ? N: [id number] ? Date of : 1960 ? Age: 60 ? Order #: [id number] ? Instrument Name: [id number] ? Procedure: ? Colonoscopy Patient Profile: ? [...] preparation was evaluated using ? the BBPS ([place] Bowel Preparation ? Scale) with scores of: [...] involvement of the left colon ? and blzm-zf-ezodlutg involvement of ? the transverse and right [...] Starting on e 12/19/20 at 1230, Until Fri12/19/20 at 1342, Endoscopy (Day of Procedure) New Bag 12/19/2020 12:24 PM EDT 100 mL/hr 100 mL/hr midazolam (pf) (Versed) (1 mg/mL) multi-dose injection ONCE PRN, Starting on e [...] 1224 (New Bag - Prov ider: Oksana Mendez, FRANCESCA) PRN Medication Order 12/17/2020 12/18/2020 12/19/2020 fentaNYL (pf) (50 mcg/mL) multi-dose injection (CANCELED) ONCE PRN, Starting on Fri12/19/20 at 1239, Until Fri12/19/20 at 1623, Intra-Operative (Intra-Procedure), Routine 1239 (Given - Provid er: Sandoval Helton RN)1242 (Given - Provider: Sandoval Helton RN)1251 (Given - Provider: aSndoval Helton RN) midazolam (pf) (Versed) (1 mg/mL) multi-dose injection (CANCELED) ONCE PRN, Starting on Fri12/19/20 at 1239, Until Fri12/19/20 at 1623, Intra-Operative (Intra-Procedure), Routine 1239 (Given - Provid er: Sandoval Helton RN)1242 (Given - Provider: Sandoval Helton RN) documented in this encounter Care Teams Saas Architect Relationship Specialty Start Date End Date Marcio Devlin DO [address] [place] [address] PCP - General Family Medicine 11/11/17 documented as of this encounter
--- OUTSIDE RECORDS SUMMARY | 2024-06-14 15:32 | XMS_ITS | Encounter Summary ---
[place] [address] Care Team Providers Care Historic Preservationist Name Role Phone Marcio Devlin DO Primary Care Provider [phone] Reason for Visit * Reason Onset Date Comments Prior Authorization 02/23/2019 Humira Encounter Details Date Type Department Care Team (Late st Contact Info) Description 02/23/2019 [place] [phone] Dennis Solorzano CPHT Prior Authorization (Humira) Social [...] REQUIREMENT: Must Fill With [facility] CASE/REFERENCE # [id number] APPROVAL NOTIFICATION RECEIVED VIA: Telephone COPAY: COPAY ASSISTANCE NEEDED?: NOTES: * Telephone Encounter - Alana Recio - 02/24/2019 8:24 AM EDT Received fax from [employer] stating: Plan reviews are not handled by [employer] [place] Please call [phone] for the PA Autofax * Telephone Encounter - Dennis Solorzano CPHT - 02/23/2019 9:05 AM EDT [facility], Medication Prior Authorization Patient: Kim Funes Patient : 1960 Patient Address: [address] [place] [phone] (home) Medication: Humira Subscriber Insurance: AUM Cardiovascular Physician: Nico Campbell Sent Via: Fax Truong: Eda/Harmeet/YURIY#: Medication Strength Frequency Requested: Humira 40 mg/0.4 ml PNKT Inject 40 mg (1 Pen) Subcutaneously Every 14 Days Qty/Day Supply: New Start: No Diagnosis & ICD-10 Code: Ankylosing Spondylitis M45.9 documented in this encounter Plan of Treatment Upcoming Encounters Date Type Department Care Team ([facility] Contact Info) Description 07/02/2024 2:00 PM EDT Appointment Non-Invasive Cardiology Lab [address] Luis Alfredo Velazquez MD [facility] [place] [address] 07/02/2024 4:00 PM EDT Office Visit Cardiology at [address] [place] [facility] [place] [address] 07/02/2024 4:40 PM EDT Office Visit Cardiology at [place] [phone] Luis Alfredo Velazquez MD [facility] [place] [address] 07/18/2024 9:00 AM EST Hospital Encounter Non-Invasive Cardiology Lab [place] [address] Arrived 07/27/2024 3:30 PM EST Office Visit Rheumatology at [place] [address] Gabe Fong MD [facility] [place] [address] 12/07/2024 2:30 PM EDT TH Visit (TeleHealth) Gastroenterology at [place] [address] Rosemarie Morrow APRN [facility] [address] documented as of this encounter Visit Diagnoses Not on filedocumented in this encounter Care Teams Historic Preservationist Relationship Specialty Start Date End Date Marcio Devlin DO [address] [place] [address] PCP - General Family Medicine 11/11/17 documented as of this encounter
--- OUTSIDE RECORDS SUMMARY | 2024-06-14 15:32 | XMS_ITS | Encounter Summary ---
Author Organization [facility] [place] [address] Care Team Providers Care Theatrical Dresser Name Role Phone Marcio Devlin DO Primary Care Provider [phone] Encounter Details Date Type Department Care Team (Late st Contact Info) Description 02/19/2019 [place] [phone] Nico Campbell DO [facility] [place] [address] Social History Tobacco Use Types Packs/Day Years [...] 2:00 PM EDT Appointment Non-Invasive [place] [address] Luis Alfredo Velazquez MD [facility] [place] [address] 07/02/2024 4:00 PM EDT Office [place] [address] [place] [facility] [place] [address] 07/02/2024 4:40 PM EDT Office Visit Cardiology at [place] [address] Luis Alfredo Velazquez MD [facility] [place] [address] 07/18/2024 9:00 AM EST Hospital Encounter Non-Invasive Cardiology Lab [place] [address] Arrived 07/27/2024 3:30 PM EST Office Visit Rheumatology at [place] [address] Gabe Fong MD [facility] [place] [address] 12/07/2024 2:30 PM EDT TH Visit (TeleHealth) Gastroenterology at [place] [address] Rosemarie Morrow, SKIP [facility] GASTRO[place] [address] documented as of this encounter Visit Diagnoses Not on filedocumented in this encounter Care Teams Theatrical Dresser Relationship Specialty Start Date End Date Marcio Devlin DO [address] [place] [address] PCP - General Family Medicine 11/11/17 documented as of this encounter
--- OUTSIDE RECORDS SUMMARY | 2024-06-14 15:32 | XMS_ITS | Encounter Summary ---
Author Organization [facility] [place] [address] Care Team Providers Care State Superintendent Of Schools Name Role Phone Marcio Devlin DO Primary Care Provider [phone] Reason for Visit * Reason Onset Date Comments Post Procedure Call 03/12/2018 Encounter Details Date Type Department Care Team (Late st Contact Info) Description 03/12/2018 Telephone Obstetrics [place] [address] Leidy Saravia RN Post Procedure [...] Overall well-being: I am doing okay Pain?: 310 Pain medication working(Y/N)?: Using Naprosyn with relief [...] evening or weekends and ask for the graphic illustrator religious education coordinator if she is having problems. LEIDY SARAVIA RN documented in this encounter Plan of Treatment Upcoming Encounters Date Type Department Care Team (Late st Contact Info) Description 07/02/2024 2:00 PM EDT Appointment Non-[place] [address] Luis Alfredo Velazquez MD [facility] [place] [address] 07/02/2024 4:00 PM EDT Office Visit Cardiology at [address] [address] [place] [facility] [place] [address] 07/02/2024 4:40 PM EDT Office Visit Cardiology at [address] [address] Luis Alfredo Velazquez MD [facility] [place] [address] 07/18/2024 9:00 AM EST Hospital Encounter Non-Invasive [place] [address] Arrived 07/27/2024 3:30 PM EST Office [place] [address] Gabe Fong MD [facility] [place] [address] 12/07/2024 2:30 PM EDT TH Visit (TeleHealth) [place] [address] Rosemarie Morrow APRN [facility] [place] [address] documented as of this encounter Visit Diagnoses Not on filedocumented in this encounter Care Teams State Superintendent Of Schools Relationship Specialty Start Date End Date Marcio Devlin DO [address] [place] [address] PCP - General Family Medicine 11/11/17 documented as of this encounter
--- OUTSIDE RECORDS SUMMARY | 2024-06-14 15:32 | XMS_ITS | Encounter Summary ---
[place] [address] Care Team Providers Care Asset Administrator Name Role Phone Marcio Devlin DO Primary Care Provider [phone] Reason for Referral * Consultation (Routine) - Closed Specialty Diagnoses / Procedures Referred By Missy escalera Referred To Contact Orthopaedics Diagnoses Primary osteoarthritis of both hips Primary osteoarthritis of both hips Nico Campbell [facility] [place] [address] [facility] [address] [place] [phone] Referral ID Status Reason Start Date Expiration Date V isits Requested Visits Authorized [id number] Closed Consult, Test & Treat 02/18/2019 02/18/2020 1 1 Encounter Details Date Type Department Care Team (Latest Contact Info) Description 02/18/2019 4:00 PM EDT Office [place] [address] Nico Campbell [facility] [place] [address] Ankylosing spondylitis, unspecified site of spine (Primary [...] Follow-up Visit PCP: Marcio Devlin DO [address] [place] [address] Rheumatological History: 1. UC associated Ankylosing Spondylitis [...] -Continue current meds: 1) Humira 40 mg [id number] 2) SZS 1000 mg BID -Check labs [...] 2:00 PM EDT Appointment Non-Invasive [place] [phone] Luis Alfredo Velazquez MD [facility] [place] [address] 07/02/2024 4:00 PM EDT Office Visit Cardiology at [address] [phone] [place] [facility] [place] [address] 07/02/2024 4:40 PM EDT Office Visit Cardiology at [address] [phone] Luis Alfredo Velazquez MD [facility] [place] [address] 07/18/2024 9:00 AM EST Hospital Encounter Non-Invasive [place] [address] Arrived 07/27/2024 3:30 PM EST Office [place] [address] Gabe Fong MD [facility] [address] 12/07/2024 2:30 PM EDT TH Visit (TeleHealth) [place] [address] Rosemarie Morrow, SKIP [facility] [place] [address] Scheduled Referrals Name Type Priority Associated Diagnoses [...] unspecified site of spine COMPREHENSIVE METABOLIC PANEL Routine 02/18/2019 5:18 PM EDT Ankylosing spondylitis, unspecified site of spine documented in this encounter Results * (ABNORMAL) Differential, Automated (02/18/2019 5:18 PM EDT) Neutrophil % 43.1 % [facility] Neutrophil Absolute 3.79 1.70 - 6.10 x10(3)/mc L [facility] Lymph % 42.7 % [facility] Lymphocytes Abs 3.8(H) 0.9 - 3.2 x10(3)/mc L [facility] Monocyte % 10.8 % [facility] Monocyte Abs 1.0(H) 0.3 - 0.9 x10(3)/mc L [facility] Eos % 2.6 % [facility] Eosinophils Abs 0.2 0.0 - 0.4 x10(3)/[facility] Basophil % 0.6 % [facility] Baso Absolute 0.0 0.0 - 0.1 x10(3)/[facility] Immature Gran % 0.20 % [facility] Comment: Immature granulocytes(IG's)percentage and absolute count will include metamyelocytes, myelocytes, and promyelocytes. Blood smears from CBCs yielding IG's will be scanned manually for concordance. If this scan disagrees with the automated IG or if promyelocytes are noted, a manual differential will be performed. Immature Gran Absolute 0.02 0.00 - 0.04 x10(3)/[facility] Blood specimen (specimen) 02/18/2019 5:18 PM EDT 02/18/2019 5:21 PM EDT Narrative Resulting Agency Comment Spec In Lab Nico Campbell DO HEMATOLOGY ORDERABLE S [facility] [place] [address] * Hemogram (02/18/2019 5:18 PM EDT) White Blood Cell 8.8 4.0 - 9.5 x10(3)/[facility] Red Blood Cell 4.71 4.00 - 5.21 x10(6)/[facility] Hemoglobin 14.4 11.7 - 15.5 gm/dL [facility] Hematocrit 44.3 35.7 - 45.8 % [facility] Mean Cell Volume 94.1 82.6 - 94.4 fL [facility] Mean Cell Hemoglobin 30.6 27.1 - 32.0 pg [facility] Mean Cell Hemoglobin Concentration 32.5 31.7 - 35.0 gm/dL [facility] Platelet 210 145 - 357 x10(3)/[facility] RDW Standard Deviation 44.7 37.0 - 46.0 fL [facility] RDW coefficient of variation 13.0 11.5 - 14.1 % [facility] Mean Platelet Volume 10.4 7.6 - 12.9 fL [facility] NRBC% auto 0.0 % [facility] NRBC Absolute 0.000 0.000 - 0.000 x10(3)/[facility] Blood specimen (specimen) 02/18/2019 5:18 PM EDT 02/18/2019 5:21 PM EDT Narrative Resulting Agency Comment Spec In Lab Nico Campbell DO HEMATOLOGY ORDERABLE S [facility] [place] [address] * (ABNORMAL) Comprehensive metabolic panel (non-fasting) (02/18/2019 5:18 PM EDT) Glucose 112 65 - 199 mg/dL [facility] Comment:Diabetes: >=200 mg/d L plus symptoms Blood Urea Nitrogen 20(H) 8 - 18 mg/dL [facility] Creatinine 0.91 0.70 - 1.20 mg/dL [facility] Sodium 144 135 - 145 mmol/L [facility] Potassium 4.4 3.5 - 5.0 mmol/L [facility] Comment: Please note: ??Patients with WBC >100,000 may have falsely elevated Potassium levels. ??For accurate Potassium quantification in these patients send serum separator tube (gold top) for subsequent determinations. ??Contact the Clinical Chemistry Laboratory if there are any questions. Chloride 107 98 - 107 mmol/L [facility] Carbon Dioxide 27 22 - 31 mmol/L [facility] Anion Gap 10 5 - 15 mmol/L [facility] Calcium 9.9 8.5 - 10.5 mg/dL [facility] Protein, Total 7.9 6.1 - 8.0 gm/dL [facility] Albumin 4.1 3.2 - 5.2 gm/dL [facility] Aspartate Aminotransferase 23 0 - 30 unit/L [facility] Alanine Aminotransferase 19 0 - 30 unit/L [facility] Alkaline Phosphatase 96 40 - 104 unit/L [facility] Bilirubin, Total 0.2 0.2 - 1.3 mg/dL [facility] Est Glomerular Filtration Rate 70 >=60 mL/min/1. 73 m?? [facility] Comment: The eGFR was calculated using the CKD-EPI equation. As with all creatinine based estimates of kidney function, eGFR values calculated with the CKD-EPI equation are not accurate in patients with acute kidney failure, extremes of body mass or the acutely ill. [email or web address]ULSAnkf eGFR 81 >=60 mL/min/1. 73 m?? [facility] Comment: The eGFR was calculated using the CKD-EPI equation. As with all creatinine based estimates of kidney function, eGFR values calculated with the CKD-EPI equation are not accurate in patients with acute kidney failure, extremes of body mass or the acutely ill. [email or web address]SAnkf Blood specimen (specimen) 02/18/2019 5:18 PM EDT 02/18/2019 5:21 PM EDT Narrative Resulting Agency Comment Spec In Lab Oc Gresham MD CHEMISTRY ORDERABLES Performing Organization Address City/State/[facility] Co de Phone Number [facility] [place] [address] documented in this encounter Visit Diagnoses Diagnosis Ankylosing spondylitis, unspecified site of spine- Primary Primary osteoarthritis of both hips Primary localized osteoarthrosis, pelvic region and thigh documented in this encounter Care Teams Asset Administrator Relationship Specialty Start Date End Date Marcio Devlin DO [address] [place] [address] PCP - General Family Medicine 11/11/17 documented as of this encounter
--- OUTSIDE RECORDS SUMMARY | 2024-06-14 15:32 | XMS_ITS | Encounter Summary ---
Author Organization [facility] [place] [address] Care Team Providers Care Concrete Wall Grinder Operator Name Role Phone Marcio Devlin DO Primary Care Provider [phone] Encounter Details Date Type Department Care Team (Late st Contact Info) Description 10/01/2019 2:00 PM EST Office [place] [phone] Gabe Fong MD [facility] [place] [address] Inflammatory arthropathy; Ulcerative colitis without complications, unspecified [...] Follow-up Note PCP: Marcio Devlin, DO [address] [place] [address] Rheumatological History: 1. UC associated Ankylosing Spondylitis [...] -Continue current meds: 1) Humira 40 mg [id number] 2) SZS 1000 mg BID -Check labs [...] 2:00 PM EDT Appointment Non[place] [address] Luis Alfredo Velazquez MD [facility] [place] [address] 07/02/2024 4:00 PM EDT Office Visit Cardiology at [address] [address] [place], [place] [facility] CARDIOLOGY [place], [place] [address] 07/02/2024 4:40 PM EDT Office Visit Cardiology at [place] [address] Luis Alfredo Velazquez MD [facility] [place] [address] 07/18/2024 9:00 AM EST Hospital Encounter Non-Invasive Cardiology Lab [place] [phone] Arrived 07/27/2024 3:30 PM EST Office Visit Rheumatology at [address] Gabe Fong MD [facility] [place] [address] 12/07/2024 2:30 PM EDT TH Visit (TeleHealth) [place] [address] Rosemarie Morrow APRN [facility] [place] [address] documented as of this encounter Visit Diagnoses Diagnosis Inflammatory arthropathy Arthropathy, unspecified, site unspecified Ulcerative colitis without complications, unspecified location Medication monitoring encounter Encounter for therapeutic drug monitoring High risk medication use Encounter for long-term (current) use of other medications documented in this encounter Care Teams Concrete Wall Grinder Operator Relationship Specialty Start Date End Date Marcio Devlin DO [address] [place] [address] PCP - General Family Medicine 11/11/17 documented as of this encounter
--- OUTSIDE RECORDS SUMMARY | 2024-06-14 15:32 | XMS_ITS | Encounter Summary ---
Author Organization [facility] [place] [address] Care Team Providers Care Qa Internship Name Role Phone Marcio Devlin DO Primary Care Provider [phone] Reason for Visit * Reason Onset Date Comments Injections 02/23/2019 Encounter Details Date Type Department Care Team (Late st Contact Info) Description 02/23/2019 Telephone [place] [phone] Glenn Choe MD [facility] [place] [address] Injections Social History Tobacco Use Types Packs/Day [...] encounter Miscellaneous Notes * Telephone Encounter - Polo, Angus Velazquez - 02/23/2019 9:28 AM EDT 1.) Does patient have any medication allergies? Yes // See chart 2.) Patient???s approximate weight in lbs. 188 3.) Does the patient have any contrast/dye allergies?No 4.) Does the patient have a high lift driver for this procedure? Yes 5.) Has [...] EDT Appointment Non-Invasive Cardiology Lab [place] [phone] Luis Alfredo Velazquez MD [facility] [place] [address] 07/02/2024 4:00 PM EDT Office [place] [address] [place] [facility] [place] [address] 07/02/2024 4:40 PM EDT Office Visit Cardiology at [place] [phone] Luis Alfredo Velazquez MD [facility] [place] [address] 07/18/2024 9:00 AM EST Hospital Encounter Non-Invasive Cardiology Lab [place] [phone] Arrived 07/27/2024 3:30 PM EST Office Visit Rheumatology at [place] [phone] Gabe Fong MD [facility] [place] [address] 12/07/2024 2:30 PM EDT TH Visit (TeleHealth) [place] [address] Rosemarie Morrow APRN [facility] [place] [address] documented as of this encounter Visit Diagnoses Not on filedocumented in this encounter Care Teams Qa Internship Relationship Specialty Start Date End Date Marcio Devlin DO [facility] [place] [address] PCP - General Family Medicine 11/11/17 documented as of this encounter
--- OUTSIDE RECORDS SUMMARY | 2024-06-14 15:32 | XMS_ITS | Encounter Summary ---
[place] [address] Care Team Providers Care Cook Supervisor Name Role Phone Marcio Devlin DO Primary Care Provider [phone] Reason for Visit * Reason Onset Date Comments Prior Authorization 10/09/2018 Shannon Encounter Details Date Type Department Care Team (Late st Contact Info) Description 10/09/2018 [place] [phone] Cory Garcia Prior Authorization (Shannon) Social History [...] 2:00 PM EDT Appointment Non-Invasive Cardiology Lab [place] [phone] Luis Alfredo Velazquez MD [facility] [place] [address] 07/02/2024 4:00 PM EDT Office [place] [address] [place] [facility] [place] [address] 07/02/2024 4:40 PM EDT Office Visit Cardiology at [place] [phone] Luis Alfredo Velazquez MD [facility] [place] [address] 07/18/2024 9:00 AM EST Hospital Encounter Non-Invasive Cardiology Lab [place] [phone] Arrived 07/27/2024 3:30 PM EST Office Visit Rheumatology at [address]1000 Gabe Fong MD [facility] [place] [address] 12/07/2024 2:30 PM EDT TH Visit (TeleHealth) Gastroenterology at [place] [phone] Rosemarie Morrow, SKIP [facility] [place] [address] documented as of this encounter Visit Diagnoses Not on filedocumented in this encounter Care Teams Cook Supervisor Relationship Specialty Start Date End Date Marcio Devlin DO [address] [place] [address] PCP - General Family Medicine 11/11/17 documented as of this encounter
--- OUTSIDE RECORDS SUMMARY | 2024-06-14 15:32 | XMS_ITS | Encounter Summary ---
Author Organization [facility] [place] [address] Care Team Providers Care Loan Broker Name Role Phone Marcio Devlin DO Primary Care Provider [phone] Encounter Details Date Type Department Care Team (Late st Contact Info) Description 11/09/2019 9:29 AM EST - 11/09/2019 1:03 PM EST Hospital Encounter [place] [phone] Froilan Sahni MD [facility] [place] [address] Discharge Disposition: Home Social History Tobacco Use [...] occurs, please contact your Doctor. Please call [phone] before 8pm Mon-Fri with problems, questions or concerns. If you call after 8pm or on weekends, call the Hospital at [phone] and ask to speak to the Executive Wellness Programs Director recreation aide and the digester operator will contact that person for you. When should you call for help? Call [phone] anytime you think you may need emergency [...] After Visit Summary and more online at [email or web address] If you would like to [...] cost to you. Content Version: 12.2 ?? [id number] [employer]. Care instructions adapted under license by [facility]. If you have questions about a medical condition or this instruction, always ask your healthcare professional. [employer] disclaims any warranty or liability for your [...] by mouth daily. SUMAtriptan (IMITREX) 20 mg/actuation [place], Non-Aerosol 1 spray as needed. 11/03/2017 metFORMIN [...] puffs into the lungs daily. 02/21/2011 10/07/2023 adalimumab 40 mg/0.4 mL Pen Injector Kit Inject 40 mg subcutaneously every 14 days. 3 kit 3 02/26/2019 11/15/2019 ursodiol (ACTIGALL) 300 mg capsule Take 1 [...] complication. Informed Consent signed by patient (or parts counter representative). documented in this encounter Plan of Treatment Upcoming Encounters Date Type Department Care Team (Late st Contact Info) Description 07/02/2024 2:00 PM EDT Appointment Non-Invasive Cardiology Lab [place] [phone] Luis Alfredo Velazquez MD [facility] [place] [address] 07/02/2024 4:00 PM EDT Office [place] [address] [place] [facility] [place] [address] 07/02/2024 4:40 PM EDT Office [place] [address] Luis Alfredo Velazquez MD [facility] [place] [address] 07/18/2024 9:00 AM EST Hospital Encounter Non-Invasive Cardiology Lab [place] [phone] Arrived 07/27/2024 3:30 PM EST Office Visit [place] [address] Gabe Fong MD [facility] [place] [address] 12/07/2024 2:30 PM EDT TH Visit (TeleHealth) Gastroenterology at [address] Rosemarie Morrow, TITLE I INSTRUCTIONAL ASSISTANT [facility] [place] [address] documented as of this encounter Procedures Procedure Name Priority Date/Time Associated Diagnosis Comments SPECIMEN TO PATHOLOGY Routine 11/09/2019 11:33 AM EST SPECIMEN TO PATHOLOGY Routine 11/09/2019 11:33 AM EST SPECIMEN TO PATHOLOGY Routine 11/09/2019 11:33 AM EST SPECIMEN TO PATHOLOGY Routine 11/09/2019 11:33 AM EST SPECIMEN TO PATHOLOGY Routine 11/09/2019 11:33 AM EST SURGICAL PATHOLOGY REPORT Routine 11/09/2019 11:10 AM EST Colonoscopy, Biopsy ([id number]) 11/09/2019 10:48 AM EST hx poylps- 2 yr surveillance Colonoscopy, Diagnostic ([id number]) 11/09/2019 10:48 AM EST hx poylps- 2 yr surveillance COLONOSCOPY Routine 11/09/2019 9:34 AM EST documented in this encounter Results * Specimen to Pathology (11/09/2019 11:33 AM EST) AP Specimen 11/09/2019 11:3 3 AM EST 11/09/2019 11:33 AM EST Narrative [facility] - 11/09/2019 11:33 AM EST Specimen requisition ordered. ??Separate Pathology report to follow Froilan Sahni MD PATHOLOGY/CYTOLOG Y ORDERABLES [facility] [place] [address] * Specimen to Pathology (11/09/2019 11:33 AM EST) AP Specimen 11/09/2019 11:3 3 AM EST 11/09/2019 11:33 AM EST Narrative [facility] - 11/09/2019 11:33 AM EST Specimen requisition ordered. ??Separate Pathology report to follow Froilan Sahni MD PATHOLOGY/[place] [address] * Specimen to Pathology (11/09/2019 11:33 AM EST) AP Specimen 11/09/2019 11:3 3 AM EST 11/09/2019 11:33 AM EST Narrative [facility] - 11/09/2019 11:33 AM EST Specimen requisition ordered. ??Separate Pathology report to follow Froilan Sahni MD PATHOLOGY/CYTOLOG Y ORDERABLES Performing Organization Address [facility]/[place] [address] * Specimen to Pathology (11/09/2019 11:33 AM EST) AP Specimen 11/09/2019 11:3 3 AM EST 11/09/2019 11:33 AM EST Narrative [facility] - 11/09/2019 11:33 AM EST Specimen requisition ordered. ??Separate Pathology report to follow Froilan Sahni MD PATHOLOGY/CYTOLOG Y ORDERABLES Performing Organization Address City/[facility]/[place] [address] * Specimen to Pathology (11/09/2019 11:33 AM EST) AP Specimen 11/09/2019 11:3 3 AM EST 11/09/2019 11:33 AM EST Narrative [facility] - 11/09/2019 11:33 AM EST Specimen requisition ordered. ??Separate Pathology report to follow Froilan Sahni MD PATHOLOGY/CYTOLOG Y ORDERABLES Performing Organization Address City/[facility]/[place] [address] * Surgical Pathology Report (11/09/2019 11:10 AM EST) Final Diagnosis [id number] ? Location: 4T; EA13; A The signing [...] Brown MD Verified: ??11/10/2019 ?Pathologist Performed at: ??-[facility] [place], [place], [place] CLINICAL INFORMATION Specimen Submitted: A - [...] labeled E1. ??elisa 11/10/2019 4:44 PM EST [facility] GI Biopsy 11/09/2019 11:1 0 AM EST 11/09/2019 11:10 AM EST GI Biopsy 11/09/2019 11:1 0 AM EST 11/09/2019 11:10 AM EST GI Biopsy 11/09/2019 11:1 0 AM EST 11/09/2019 11:10 AM EST GI Biopsy 11/09/2019 11:1 0 AM EST 11/09/2019 11:10 AM EST GI Biopsy 11/09/2019 11:1 0 AM EST 11/09/2019 11:10 AM EST Froilan Sahni MD PATHOLOGY/CYTOLOG Y ORDERABLES [facility] [place] [place] [address] * COLONOSCOPY (11/09/2019 9:34 AM EST) COLONOSCOPY [facility] Endoscopy ___ Procedure Date: 11/09/2019 9:34 AM ? Patient Name: Kim Funes ? Date of : 1960 ? Age: 59 ? Order #: [id number] ? Instrument Name: [id number] ? ___ Procedure: ? Colonoscopy Indications: ? High risk colon cancer surveillance: ? Ulcerative pancolitis of 8 (or more) ? years duration Patient Profile: ? This is a 59 year old female. This ? patient has ulcerative pancolitis, is ? taking adalimumab and is experiencing ? mild symptoms. Providers: ? Froilan Sahni MD, Avani Hayes ? Sarah, RN, Lawrence Natarajan Referring : ?Marcio A. Myrter, DO Medicines: ? Midazolam 4.5 mg IV, [...] multi-dose injection (CANCELED) ONCE PRN, Starting on Fri11/09/19 at 1053, Until Fri11/09/19 at 1508, Intra-Operative (Intra-Procedure), Routine 1053 (Given - Provid er: Avani Smith, FRANCESCA)1057 (Given - Provider: Avani Smith, FRANCESCA)1104 (Given - Provider: Avani Smith, FRANCESCA)1110 (Given - Provider: Avani Smith RN) documented in this encounter Care Teams Loan Broker Relationship Specialty Start Date End Date Marcio Devlin DO [address] [place] [address] PCP - General Family Medicine 11/11/17 documented as of this encounter
--- OUTSIDE RECORDS SUMMARY | 2024-06-14 15:32 | XMS_ITS | Encounter Summary ---
Author Organization [facility] [place] [address] Care Team Providers Care Rolling Mill Operator Name Role Phone Marcio Devlin DO Primary Care Provider [phone] Reason for Referral * Diagnostic Test (Routine) - Closed Specialty Diagnoses / Procedures Referred By Contac t Referred To Contact Radiology Diagnoses Ankylosing spondylitis, unspecified site of spine Procedures DXA Central-Spine, Hip, And/Or Whole Body (Generic) Nico Campbell [facility] [place] [address] [facility]he Xray [address] [place] [address] [place] [address] Referral ID Status Reason Start Date Expiration Date V isits Requested Visits Authorized [id number] Closed Specialty Service Requested 08/31/2018 08/31/2019 1 1 Reason for Visit * Diagnostic Test (Routine) - Closed Specialty Diagnoses / Procedures Referred By Contac t Referred To Contact Radiology Diagnoses Ankylosing spondylitis, unspecified site of spine Procedures DXA Central-Spine, Hip, And/Or Whole Body (Generic) Nico Campbell [facility] [place] [address] [facility] Rad Xray [address] [place] [address] [place] [address] Referral ID Status Reason Start Date Expiration Date V isits Requested Visits Authorized [id number] Closed Specialty Service Requested 08/31/2018 08/31/2019 1 1 Encounter Details Date Type Department Care Team (Latest Contact Info) Description 06/01/2019 12:55 PM EDT - 06/01/2019 11:59 PM EDT Hospital Encounter XRay at [address] [place] [address] Oc Gresham MD [facility] [place] [address] Ankylosing spondylitis, unspecified site of spine Discharge [...] by mouth daily. SUMAtriptan (IMITREX) 20 mg/actuation [place], Non-Aerosol 1 spray as needed. 11/03/2017 metFORMIN [...] 2:00 PM EDT Appointment Non-Invasive [place] [address] Luis Alfredo Velazquez MD [facility] [place] [address] 07/02/2024 4:00 PM EDT Office Visit Cardiology at [place] [phone] [place] [facility] [place] [address] 07/02/2024 4:40 PM EDT Office Visit Cardiology at [address]1000 Luis Alfredo Velazquez MD [facility] [place] [address] 07/18/2024 9:00 AM EST Hospital Encounter Non-Invasive Cardiology Lab [address]1000 Arrived 07/27/2024 3:30 PM EST Office Visit Rheumatology at [place] [address] Gabe Fnog MD [facility] [place] [address] 12/07/2024 2:30 PM EDT TH Visit (TeleHealth) Gastroenterology at [place] [phone] Rosemarie Morrow APRN [facility] [place] [address] documented as of this encounter Procedures Procedure [...] BMD measurements and plots are available in [employer] under the imaging tab. Paper copies will be sent to providers without E- access. If you have received this report without the data sheet and do not have access to [employer], please contact Radiology It Technician at [phone] Friday thru Friday 8am-4pm. Thank you for [...] BMD measurements and plots are available in EAlticastunder the imaging tab. Paper copies will be sent to providers without E- access.If you have received this report without the data sheet and do not haveaccess to [employer], please contact Radiology It Technician at [phone] Friday thruFriday 8am-4pm. Thank you for letting us participate in the care of this patient. Forquestions regarding this report, please contact the number below. Oc G[place]am MD IMG DEXA ORDERABLES documented in this encounter Visit Diagnoses Diagnosis Ankylosing spondylitis, unspecified site of spine documented in this encounter Care Teams Rolling Mill Operator Relationship Specialty Start Date End Date Marcio Devlin DO [address] [place] [address] PCP - General Family Medicine 11/11/17 documented as of this encounter
--- OUTSIDE RECORDS SUMMARY | 2024-06-14 15:32 | XMS_ITS | Encounter Summary ---
Author Organization [facility] [place] [address] Care Team Providers Care Link Machine Operator Name Role Phone Marcio Devlin DO Primary Care Provider [phone] Encounter Details Date Type Department Care Team (Late st Contact Info) Description 10/15/2019 Telephone [place] [address] Karen Gupta Social History Tobacco Use Types [...] - 10/15/2019 1:14 PM EST Kim Funes [id number] Diagnosis/Indication: COLO 1. Have you ever had [...] 2:00 PM EDT Appointment Non-Invasive [place] [address] Luis Alfredo Velazquez MD [facility] [address] [place] [address] 07/02/2024 4:00 PM EDT Office Visit Cardiology at [address] [address] [place] [facility] [address] [place] [address] 07/02/2024 4:40 PM EDT Office Visit Cardiology at [address] [address] Luis Alfredo Velazquez MD [facility] [address] [place], [place] [address] 07/18/2024 9:00 AM EST Hospital Encounter Non-Invasive [place] [address] Arrived 07/27/2024 3:30 PM EST Office [place] [address] Gabe Fong MD [facility] [place] [address] 12/07/2024 2:30 PM EDT TH Visit (TeleHealth) [place] [address] Rosemarie Morrow APRN [facility] [place] [address] documented as of this encounter Visit Diagnoses Not on filedocumented in this encounter Care Teams Link Machine Operator Relationship Specialty Start Date End Date Marcio Devlin DO [address] [place] [address] PCP - General Family Medicine 11/11/17 documented as of this encounter
--- OUTSIDE RECORDS SUMMARY | 2024-06-14 15:32 | XMS_ITS | Encounter Summary ---
Author Organization [facility] [place] [address] Care Team Providers Care Manager Access Name Role Phone Marcio Devlin DO Primary Care Provider [phone] Reason for Visit * Reason Comments Right Hip Pain xr right hip pain (P H left ROSS 03/2006 Ginger) * Consultation (Routine) - Closed Specialty Diagnoses / Procedures Referred By Missy escalera Referred To Contact Orthopaedics Diagnoses Primary osteoarthritis of both hips Primary osteoarthritis of both hips Nico Campbell DO [facility] [place] [address] [facility] Orthopa[facility]ics [address] [place] [phone] Referral ID Status Reason Start Date Expiration Date V isits Requested Visits Authorized [id number] Closed Consult, Test & Treat 02/18/2019 02/18/2020 1 1 Encounter Details Date Type Department Care Team (Latest Contact Info) Description 02/23/2019 8:20 AM EDT Office [place] [address] Glenn Choe MD [facility] [place] [address] Primary osteoarthritis of right hip; [...] less than $75,000 # People Supported 2 [employer]ym[employer], , No, not Cymro// Race [employer] Literacy Extremely Currently working [...] 2:00 PM EDT Appointment Non-[place] [address] Luis Alfredo Velazquez MD [facility] [place] [address] 07/02/2024 4:00 PM EDT Office Visit Cardiology at [address] [phone] [place] [facility] [place] [address] 07/02/2024 4:40 PM EDT Office Visit Cardiology at [address] [address] Luis Alfredo Velazquez MD [facility] [place] [address] 07/18/2024 9:00 AM EST Hospital Encounter Non-[place]vasive [place] [address] Arrived 07/27/2024 3:30 PM EST Office [place] [address] Gabe Fong MD [facility] [place] [address] 12/07/2024 2:30 PM EDT TH Visit (TeleHealth) Gastroenterology at [facility] [place] [place] [address] Rosemarie Morrow APRN [facility] [place] [address] documented as of this encounter Results * [...] the number below. ? Electronically signed by: STEWART Sood [facility] ([phone]), at 03/09/2019 2:51 PM Narrative 03/09/2019 2:51 PM EDT HISTORY: Right hip pain, hip joint etiology? RIGHT HIP JOINT INJECTION UNDER FLUOROSCOPY TECHNIQUE: After an extensive conversation with the patient regarding risks and benefits, oral and written consent were obtained.? A pre- procedural time-out was performed, including review of the patient's relevant electronic medical record and allergies, as per [facility] protocol. The patient was placed supine on [...] reviewed with patient. Procedure Note Danika Carlton, SALES REPRESENTATIVE GRAPHIC ART - 03/09/2019 HISTORY: Right hip pain, hip joint etiology? RIGHT HIP JOINT INJECTION UNDER FLUOROSCOPY TECHNIQUE: After an extensive conversation with the patient regarding risks andbenefits, oral and written consent were obtained.? A pre- procedural time-out was performed, including review of the patient's relevant electronic medicalrecord and allergies, as per [facility] protocol. The patient was placed supine on [...] contact the number below. Electronically signed by: STEWART Sood [facility]([phone]), at 03/09/2019 2:51 PM Glenn Choe MD IMG FLUORO ORDERABLE S documented in this encounter Visit Diagnoses Diagnosis Primary osteoarthritis of right hip Primary localized osteoarthrosis, pelvic region and thigh Presence of left artificial hip joint Hip joint replacement by other means Primary osteoarthritis of right hip Primary localized osteoarthrosis, pelvic region and thigh documented in this encounter Care Teams Manager Access Relationship Specialty Start Date End Date Marcio Devlin DO [address] [place] [address] PCP - General Family Medicine 11/11/17 documented as of this encounter
--- OUTSIDE RECORDS SUMMARY | 2024-06-14 15:32 | XMS_ITS | Encounter Summary ---
Author Organization [facility] Address [facility] [place] [address] Care Team Providers Care Coal Cutter Name Role Phone Marcio Devlin DO Primary Care Provider [phone] Reason for Visit * Auth/Cert Specialty Diagnoses [...] Expiration Date Visits Re quested Visits Authorized [id number] 1 1 Encounter Details Date Type Department Care Team (Latest Contact Info) Description 03/10/2018 6:02 AM EDT - 03/11/2018 8:53 AM EDT Hospital Encounter [facility] [place] [address] Liang Fong MD [facility] [place] [address] Uterovaginal prolapse, incomplete; Urinary, incontinence, stress female [...] Kim Funes Patient Age: 57 y.o. Language: Uzbek Race: White Ethnicity: Not nor Admit date: 03/10/2018 Discharge date and time: 03/11/2018 Attending Physician: Liang Fong MD Discharge Physician: Liang Fong MD Follow-up Recommendations for Providers: Follow up appointment: 04/21/18 at 1:[address] Fong Inpatient Provider Contact Information: Female Pelvic Medicine and Reconstructive Surgery Department of Obstetrics and Gynecology [phone] Discharge Diagnoses (Hospital Problems) and Secondary Diagnoses [...] secondary to snk spond so was referred [facility] for [place] to evaluate. Hospital Course: Kim [...] 1000 mg Refills: 0 SUMAtriptan 20 mg/actuation [place] Commonly known as: IMITREX 1 spray as [...] in with the urogynecology office nurse at [phone] to review how your bladder is working and when the catheter use can be discontinued. For problems or concerns related to this hospitalization call: [phone] weekdays, or [phone] weekends or nights. Call your doctor if [...] Liang Fong MD Obstetrics and Gynecology at [place] [phone] 08/31/2018 11:00 AM Nico Campbell DO Rheumatology at [place] [phone] Discharge References/Attachments None Provider Contact Information: Marcio Devlin DO [phone] documented in this encounter Discharge Instructions * [...] in with the urogynecology office nurse at [phone] to review how your bladder is working and when the catheter use can be discontinued. For problems or concerns related to this hospitalization call: [phone] weekdays, or [phone] weekends or nights. Call your doctor if [...] by mouth daily. SUMAtriptan (IMITREX) 20 mg/actuation [place], Non-Aerosol 1 spray as needed. 11/03/2017 metFORMIN [...] by mouth 2 times daily. 12/24/2012 10/07/2023 ferrous sulfate 325 mg (65 mg [...] puffs into the lungs daily. 02/21/2011 10/07/2023 docusate sodium (COLACE) 100 mg Capsule [...] 14 days. 4 kit 5 11/20/2017 10/08/2018 fish oil-omega-3 fatty acids 1,000 mg Capsule Take 1 g by mouth daily. 02/23/2019 METOPROLOL SUCCINATE ORAL Take 100 mg by [...] output FEK: D/c IVF. Tolerating PO intake. DIRECTOR GEOPHYSICAL LABORATORY: Final pathology report pending. -Follow up in [...] intake. -Wean IVF when tolerating full diet DIRECTOR GEOPHYSICAL LABORATORY: Final pathology report pending. -Follow up in clinic 4-6 weeks postoperatively Endocrine: DM II - sensitive SSI ordered ID: Afebrile, received prophylactic antibiotics preop, no evidence of infection -continue to monitor vital signs. Prophylaxis: SCDs while in bed, encourage ambulation, incentive spirometry Dispo: Anticipate discharge tomorrow Code Status: Full Code Jason Stapleton MD PGY-2 03/10/2018 Gynecology Service Pager: [phone] (M-F [phone]), otherwise page [phone] * Aleta Croft, RN - 03/10/2018 11:25 AM EDT Pt arrived from OR to PACU. Placed on monitor and alarms adjusted. Received report.1225: infor visit. documented in this encounter H&P Notes * Victorina Becker - 03/10/2018 6:30 AM EDT Inpatient ROTATIONAL MOULDING OPERATOR - Admission Interval Note I have reviewed [...] Fong MD - 03/10/2018 11:21 AM EDT [facility] Operative Note Patient Name: Kim Funes : [id number] MR#: [id number] Case Date: 03/10/2018 Surgeon: Surgeon(s) and Role: [...] the cervical portio with 1% lidocaine with [id number] Epinephrine solution. A weighted speculum had been [...] defect, and this was reapproximated with a [id number] 0Vicryl suture in interrupted fashion. After the [...] Operative Note Patient Name: Kim Funes : [id number] MR#: [id number] Case Date: 03/10/2018 Surgeon: Surgeon(s) and Role: [...] 2:00 PM EDT Appointment Non-[place] [phone] Luis Alfredo Velazquez MD [facility] [place] [address] 07/02/2024 4:00 PM EDT Office Visit Cardiology at [place] [phone] [place] [facility] [place] [address] 07/02/2024 4:40 PM EDT Office Visit Cardiology at [address] [phone] Luis Alfredo Velazquez MD [facility] [place] [address] 07/18/2024 9:00 AM EST Hospital Encounter Non-Invasive [place] [address] Arrived 07/27/2024 3:30 PM EST Office [place] [address] Gabe Fong MD [facility] [place] [address] 12/07/2024 2:30 PM EDT TH Visit (TeleHealth) [place] [address] Rosemarie Morrow, DYNAMITE CARTRIDGE CRIMPER [facility] [place] [address] documented as of this encounter Procedures Procedure Name Priority Date/Time Associated Diagnosis Comments KILN CAR UNLOADER SCAN 03/12/2018 12:00 AM EDT POCT GLUCOSE [...] in this encounter Results * SCAN DOC: KILN CAR UNLOADER (03/12/2018 12:00 AM EDT) Anatomical Region Laterality Modality Other Narrative 03/12/2018 12:00 AM EDT Ordered by an unspecified provider. Scanning Provider MEDIA MGR SCAN EXT O RDR/RSLT * POCT Glucose (03/11/2018 7:16 AM EDT) Glucose, POC 121 65 - 199 mg/dL [facility] Comment: Supplemental ranges: <140 mg/dL before meals <180 mg/dL all other times of the day Blood specimen (specimen) 03/11/2018 7:16 AM EDT 03/11/2018 7:16 AM EDT Liang Fong MD POINT OF CARE TEST O IRMA Performing Organization Address City/[facility] Co de Phone Number [facility] [place] [address] * POCT Glucose (03/10/2018 9:20 PM EDT) Glucose, POC 107 65 - 199 mg/dL [facility] Comment: Supplemental ranges: <140 mg/dL before meals <180 mg/dL all other times of the day Blood specimen (specimen) 03/10/2018 9:20 PM EDT 03/10/2018 9:20 PM EDT Liang Fong MD POINT OF CARE TEST O CHYNAERADARLEEN Performing Organization Address [facility] Co de Phone Number [facility] [place] [address] * POCT Glucose (03/10/2018 4:39 PM EDT) Glucose, POC 110 65 - 199 mg/dL [facility] Comment: Supplemental ranges: <140 mg/dL before meals <180 mg/dL all other times of the day Blood specimen (specimen) 03/10/2018 4:39 PM EDT 03/10/2018 4:39 PM EDT Liang Fong MD POINT OF CARE TEST O RDERADARLEEN [facility] [place] [address] * POCT Glucose (03/10/2018 11:23 AM EDT) Glucose, POC 137 65 - 199 mg/dL [facility] Comment: Supplemental ranges: <140 mg/dL before meals <180 mg/dL all other times of the day Blood specimen (specimen) 03/10/2018 11:23 AM EDT 03/10/2018 11:23 AM EDT Liang Fong MD POINT OF CARE TEST O IRMA Performing Organization Address [facility] Co de Phone Number [facility] [place] [address] * Specimen to Pathology (03/10/2018 9:22 AM EDT) AP Specimen 03/10/2018 9:22 AM EDT 03/10/2018 11:[address] [facility] - 03/10/2018 11:03 AM EDT Specimen requisition ordered. ??Separate Pathology report to follow Resulting Agency Comment Spec In Lab Liang Fong MD PATHOLOGY/CYTOLOGY O IRMA Performing Organization Address [facility] Co de Phone Number [facility] [place] [address] * Surgical Pathology Report (03/10/2018 9:00 AM EDT) Final Diagnosis [id number] ? Location: U; 14; A The signing [...] Marc Hayes Verified: ??03/16/2018 ?Pathologist Performed at: ??-[facility] Dept. of Pathology, [place], [place] CLINICAL INFORMATION Specimen Submitted: A - [...] 2:[address] [facility] Uterine Corpus 03/10/2018 9: 00 AM EDT 03/10/2018 9:00 AM EDT Liang Fong MD PATHOLOGY/CYTOLOGY O RDERABLES [facility] [place] [address] * POCT Glucose (03/10/2018 6:28 AM EDT) Glucose, POC 107 65 - 199 mg/dL [facility] Comment: Supplemental ranges: <140 mg/dL before meals <180 mg/dL all other times of the day Blood specimen (specimen) 03/10/2018 6:28 AM EDT 03/10/2018 6:28 AM EDT Liang Fong MD POINT OF CARE TEST O RDERABLES [facility] [place] [address] documented in this encounter Visit Diagnoses Diagnosis [...] Waters RN)0548 (Given - Provider: Carmencita Waters, RN) [...] Chantell Moy, FRANCESCA)2024 (Given - Provider: Carmencita Waters, FRANCESCA) 0824 (Given - Provider: Chantell Moy, FRANCESCA) [...] Routine documented in this encounter Care Teams Coal Cutter Relationship Specialty Start Date End Date Marcio Devlin DO [address] [place] [address] PCP - General Family Medicine 11/11/17 documented as of this encounter
--- OUTSIDE RECORDS SUMMARY | 2024-06-14 15:32 | XMS_ITS | Encounter Summary ---
Author Organization [facility] [place] [address] Care Team Providers Care Privacy Compliance Manager Name Role Phone Marcio Devlin DO Primary Care Provider [phone] Reason for Visit * Reason Onset Date Comments Medication Refill 10/08/2018 Encounter Details Date Type Department Care Team (Late st Contact Info) Description 10/08/2018 [place] [phone] Mark Good, RN Ankylosing spondylitis of cervical [...] 2:00 PM EDT Appointment Non-Invasive Cardiology Lab [place] [phone] Luis Alfredo Velazquez MD [facility] [place] [address] 07/02/2024 4:00 PM EDT Office Visit Cardiology at [address] [place] [facility] [place] [address] 07/02/2024 4:40 PM EDT Office Visit Cardiology at [place] [phone] Luis Alfredo Velazquez MD [facility] [place] [address] 07/18/2024 9:00 AM EST Hospital Encounter [place] [address] Arrived 07/27/2024 3:30 PM EST Office Visit Rheumatology at [place] [phone] Gabe Fong MD [facility] [place] [address] 12/07/2024 2:30 PM EDT TH Visit (TeleHealth) Gastroenterology at [place] [phone] Rosemarie Morrow APRN [facility] [place] [address] documented as of this encounter Visit Diagnoses Diagnosis Ankylosing spondylitis of cervical region Ankylosing spondylitis documented in this encounter Care Teams Privacy Compliance Manager Relationship Specialty Start Date End Date Marcio Devlin DO [address] [place] [address] PCP - General Family Medicine 11/11/17 documented as of this encounter
--- OUTSIDE RECORDS SUMMARY | 2024-06-14 15:32 | XMS_ITS | Encounter Summary ---
Author Organization [facility] Address [facility] [place] [address] Care Team Providers Care Crystal Growing Technician Name Role Phone Marcio Devlin DO Primary Care Provider [phone] Encounter Details Date Type Department Care Team (Latest Contact Info) Description 02/23/2019 6:48 AM EDT - 02/23/2019 11:59 PM EDT Hospital Encounter XRay at [address] [place] [address] Glenn Choe MD [facility] [place] [address] Right hip pain; Hx of total hip [...] by mouth daily. SUMAtriptan (IMITREX) 20 mg/actuation [place], Non-Aerosol 1 spray as needed. 11/03/2017 metFORMIN [...] 14 days. 3 kit 3 02/19/2019 02/26/2019 ursodiol (ACTIGALL) 300 mg capsule Take 1 [...] 2:00 PM EDT Appointment Non-Invasive Cardiology [place] [phone] Luis Alfredo Velazquez MD [facility] [place] [address] 07/02/2024 4:00 PM EDT Office Visit Cardiology at [address] [phone] [place] [facility] [place] [address] 07/02/2024 4:40 PM EDT Office Visit Cardiology at [address] [phone] Luis Alfredo Velazquez MD [facility] [place] [place] [address] 07/18/2024 9:00 AM EST Hospital Encounter Non-Invasive Cardiology [place] [phone] Arrived 07/27/2024 3:30 PM EST Office [place] [phone] Gabe Fong MD [facility] [place] [address] 12/07/2024 2:30 PM EDT TH Visit (TeleHealth) [place] [address] Rosemarie Morrow APRN [facility] [place] [address] documented as of this encounter Procedures Procedure [...] left documented in this encounter Care Teams Crystal Growing Technician Relationship Specialty Start Date End Date Marcio Devlin DO [address] [place] [address] PCP - General Family Medicine 11/11/17 documented as of this encounter
--- OUTSIDE RECORDS SUMMARY | 2024-06-14 15:32 | XMS_ITS | Encounter Summary ---
Author Organization [facility] Address [facility] [place] [address] Care Team Providers Care Airplane Flight Attendant Name Role Phone Marcio Devlin DO Primary Care Provider [phone] Reason for Visit * Reason Comments Post Op Encounter Details Date Type Department Care Team (Late st Contact Info) Description 04/21/2018 1:40 PM EDT Office Visit Obstetrics and Gynecology at [facility] [place] [phone] Liang Fong MD [facility] [place] [address] Post-operative state (Primary Dx) Social History Tobacco [...] with: Event Presence Event Presence NONE n/a [place] Walking Cold Weather Running Anticipation of going [...] test (empty supine): negative External Genitalia: Vulva, Gilby's and Bartholin glands normal, urethra without tenderness [...] 2:00 PM EDT Appointment Non-[place] [phone] Luis Alfredo Velazquez MD [facility] [place] [address] 07/02/2024 4:00 PM EDT Office Visit Cardiology at [address] [phone] [place] [facility] [place] [address] 07/02/2024 4:40 PM EDT Office Visit Cardiology at [address] [phone] Luis Alfredo Velazquez MD [facility] [place] [address] 07/18/2024 9:00 AM EST Hospital Encounter Non-Invasive [place] [address] Arrived 07/27/2024 3:30 PM EST Office [place] [address] Gabe Fong MD [facility] [place] [address] 12/07/2024 2:30 PM EDT TH Visit (TeleHealth) [place] [address] Rosemarie Morrow APRN [facility] [place] [address] documented as of this encounter Visit Diagnoses Diagnosis Post-operative state- Primary Other postprocedural status documented in this encounter Care Teams Airplane Flight Attendant Relationship Specialty Start Date End Date Marcio Devlin DO [address] [place] [address] PCP - General Family Medicine 11/11/17 documented as of this encounter
--- OUTSIDE RECORDS SUMMARY | 2024-06-14 15:32 | XMS_ITS | Encounter Summary ---
Author Organization [facility] [place] [address] Care Team Providers Care Liquor Gallery Operator Name Role Phone Marcio Devlin DO Primary Care Provider [phone] Reason for Visit * Reason Comments Follow-up Encounter Details Date Type Department Care Team (Late st Contact Info) Description 06/01/2019 2:30 PM EDT Office [place] [address] Gabe Fong MD [facility] [place] [address] High risk medication use; Inflammatory arthropathy; Morning [...] Marcio Devlin DO [address] [facility] [place] [address] Rheumatological History: 1. UC associated Ankylosing Spondylitis [...] may be limited by underlying Hx of MÉNEDZ. ? #MÉNDEZ: -S/P liver bx in 03/2010 [...] -Continue current meds: 1) Humira 40 mg [id number] 2) SZS 1000 mg BID -Check labs [...] 2:00 PM EDT Appointment [place] [phone] Luis Alfredo Velazquez MD [facility] [place] [address] 07/02/2024 4:00 PM EDT Office Visit Cardiology at [address] [place] [facility] [place] [address] 07/02/2024 4:40 PM EDT Office [place] [address] Luis Alfredo Velazquez MD [facility] [place] [address] 07/18/2024 9:00 AM EST Hospital Encounter Non-[place] [address] Arrived 07/27/2024 3:30 PM EST Office Visit Rheumatology at [address] Gabe Fong MD [facility] [place] [address] 12/07/2024 2:30 PM EDT TH Visit (TeleHealth) [place] [address] Rosemarie Morrow APRN [facility] [place] [address] documented as of this encounter Procedures Procedure [...] (ABNORMAL) Differential, Automated (06/01/2019 3:22 PM EDT) Neutrophil % 51.6 % [facility] Neutrophil Absolute 5.62 1.70 - 6.10 x10(3)/mc L [facility] Lymph % 34.7 % [facility] Lymphocytes Abs 3.8(H) 0.9 - 3.2 x10(3)/mc L [facility] Monocyte % 9.9 % [facility] Monocyte Abs 1.1(H) 0.3 - 0.9 x10(3)/mc L [facility] Eos % 3.0 % [facility] Eosinophils Abs 0.3 0.0 - 0.4 x10(3)/mc L [facility] Basophil % 0.5 % [facility] Baso Absolute 0.0 0.0 - 0.1 x10(3)/mc L [facility] Immature Gran % 0.30 % [facility] Comment: Immature granulocytes(IG's)percentage and absolute count will include metamyelocytes, myelocytes, and promyelocytes. Blood smears from CBCs yielding IG's will be scanned manually for concordance. If this scan disagrees with the automated IG or if promyelocytes are noted, a manual differential will be performed. Immature Gran Absolute 0.03 0.00 - 0.04 x10(3)/mc L [facility] Blood specimen (specimen) 06/01/2019 3:22 PM EDT 06/01/2019 3:46 PM EDT Narrative Resulting Agency Comment Spec In Lab Gabe Fong MD HEMATOLOGY ORDERABLE S [facility] [place] [address] * (ABNORMAL) Hemogram (06/01/2019 3:22 PM EDT) White Blood Cell 10.9(H) 4.0 - 9.5 x10(3)/mc L [facility] Red Blood Cell 4.70 4.00 - 5.21 x10(6)/mc L [facility] Hemoglobin 14.3 11.7 - 15.5 gm/dL [facility] Hematocrit 44.1 35.7 - 45.8 % [facility] Mean Cell Volume 93.8 82.6 - 94.4 fL [facility] Mean Cell Hemoglobin 30.4 27.1 - 32.0 pg [facility] Mean Cell Hemoglobin Concentration 32.4 31.7 - 35.0 gm/dL [facility] Platelet 238 145 - 357 x10(3)/mc L [facility] RDW Standard Deviation 46.2(H) 37.0 - 46.0 fL [facility] RDW coefficient of variation 13.3 11.5 - 14.1 % [facility] Mean Platelet Volume 10.8 7.6 - 12.9 fL [facility] NRBC% auto 0.0 % [facility] NRBC Absolute 0.000 0.000 - 0.000 x10(3)/mc L [facility] Blood specimen (specimen) 06/01/2019 3:22 PM EDT 06/01/2019 3:46 PM EDT Narrative Resulting Agency Comment Spec In Lab Gabe Fong MD HEMATOLOGY ORDERABLE S Performing Organization Address [facility] Co de Phone Number [facility] [place] [address] * (ABNORMAL) Hepatic Function Panel (06/01/2019 3:22 PM EDT) Protein, Total 8.4(H) 6.1 - 8.0 gm/dL [facility] Albumin 4.1 3.2 - 5.2 gm/dL [facility] Aspartate Aminotransferase 19 0 - 30 unit/L [facility] Alanine Aminotransferase 15 0 - 30 unit/L [facility] Alkaline Phosphatase 91 35 - 105 unit/L [facility] Bilirubin, Total 0.2 0.2 - 1.3 mg/dL [facility] Bilirubin, Direct <0.1 0.0 - 0.3 mg/dL [facility] Blood specimen (specimen) 06/01/2019 3:22 PM EDT 06/01/2019 3:46 PM EDT Narrative Resulting Agency Comment Spec In Lab Gabe Fong MD CHEMISTRY ORDERABLES Performing Organization Address [facility] Co de Phone Number [facility] [place] [address] * (ABNORMAL) CRP, acute inflammation (06/01/2019 3:22 PM EDT) C-Reactive Protein 8.4(H) <=4.9 mg/L [facility] Blood specimen (specimen) 06/01/2019 3:22 PM EDT 06/01/2019 3:46 PM EDT Narrative Resulting Agency Comment Spec In Lab Gabe Fong MD CHEMISTRY ORDERABLES Performing Organization Address [facility] Co de Phone Number [facility] [place] [address] * Creatinine (06/01/2019 3:22 PM EDT) Creatinine 0.79 0.70 - 1.20 mg/dL [facility] Est Glomerular Filtration Rate 83 >=60 mL/min/1.7 3 m?? [facility] Comment: The eGFR was calculated using the CKD-EPI equation. As with all creatinine based estimates of kidney function, eGFR values calculated with the CKD-EPI equation are not accurate in patients with acute kidney failure, extremes of body mass or the acutely ill. http://[employer]/[facility]ERnkf eGFR 96 >=60 mL/min/1.7 3 m?? [facility] Comment: The eGFR was calculated using the CKD-EPI equation. As with all creatinine based estimates of kidney function, eGFR values calculated with the CKD-EPI equation are not accurate in patients with acute kidney failure, extremes of body mass or the acutely ill. http://[employer]/[facility]nkf Blood specimen (specimen) 06/01/2019 3:22 PM EDT 06/01/2019 3:46 PM EDT Narrative Resulting Agency Comment Spec In Lab Gabe Fogn MD CHEMISTRY ORDERABLES Performing Organization Address [facility] Co de Phone Number [facility] [place] [address] * Sedimentation rate (06/01/2019 3:22 PM EDT) Sedimentation Rate Automated 11 0 - 20 mm/hr [facility] Blood specimen (specimen) 06/01/2019 3:22 PM EDT 06/01/2019 3:46 PM EDT Narrative Resulting Agency Comment Spec In Lab Gabe Fong MD HEMATOLOGY ORDERABLE S [facility] [place] [address] * Uric acid (06/01/2019 3:22 PM EDT) Uric Acid 6.1 2.5 - 6.5 mg/dL [facility] Blood specimen (specimen) 06/01/2019 3:22 PM EDT 06/01/2019 3:46 PM EDT Narrative Resulting Agency Comment Spec In Lab Gabe Fong MD CHEMISTRY ORDERABLES Performing Organization Address [facility] Co de Phone Number [facility] [place] [address] documented in this encounter Visit Diagnoses Diagnosis High risk medication use Encounter for long-term (current) use of other medications Inflammatory arthropathy Arthropathy, unspecified, site unspecified Morning joint stiffness Stiffness of joint, not elsewhere classified, unspecified site Ankylosing spondylitis, unspecified site of spine documented in this encounter Care Teams Liquor Gallery Operator Relationship Specialty Start Date End Date Marcio Devlin DO [address] [address] PCP - General Family Medicine 11/11/17 documented as of this encounter
--- OUTSIDE RECORDS SUMMARY | 2024-06-14 15:32 | XMS_ITS | Encounter Summary ---
Author Organization [facility] [place] [address] Care Team Providers Care Ccnp Name Role Phone Marcio Devlin DO Primary Care Provider [phone] Encounter Details Date Type Department Care Team (Late st Contact Info) Description 07/13/2019 Telephone [place] [address] Gabe Fong MD [facility] [place] [address] Social History Tobacco Use Types Packs/Day Years [...] 2:00 PM EDT Appointment Non[place] [address] Luis Alfredo Velazquez MD [facility] [place] [address] 07/02/2024 4:00 PM EDT Office Visit Cardiology at [place] [address] [place] [facility] [place] [address] 07/02/2024 4:40 PM EDT Office Visit Cardiology at [place] [address] Luis Alfredo Velazquez MD [facility] [place] [address] 07/18/2024 9:00 AM EST Hospital Encounter Non-[place]vasive [place] [address] Arrived 07/27/2024 3:30 PM EST Office Visit Rheumatology at [place] [address] Gabe Fong MD [facility] [place] [address] 12/07/2024 2:30 PM EDT TH Visit (TeleHealth) Gastroenterology at [place] [phone] Rosemarie Morrow APRN [facility] [place] [address] documented as of this encounter Visit Diagnoses Not on filedocumented in this encounter Care Teams Ccnp Relationship Specialty Start Date End Date Marcio Devlin DO [address] [place] [address] PCP - General Family Medicine 11/11/17 documented as of this encounter
--- OUTSIDE RECORDS SUMMARY | 2024-06-14 15:32 | XMS_ITS | Encounter Summary ---
Author Organization [facility] [place] [address] Care Team Providers Care Toll Gate Tender Name Role Phone Marcio Devlin DO Primary Care Provider [phone] Encounter Details Date Type Department Care Team (Late st Contact Info) Description 02/26/2019 Refill [place] [phone] Nico Campbell DO [facility] [place] [address] Social History Tobacco Use Types Packs/Day Years [...] 2:00 PM EDT Appointment Non-Invasive [place] [address] Luis Alfredo Velazquez MD [facility] [place] [address] 07/02/2024 4:00 PM EDT Office [place] [address] [place] [facility] [place] [address] 07/02/2024 4:40 PM EDT Office Visit Cardiology at [place] [address] Luis Alfredo Velazquez MD [facility] [place] [address] 07/18/2024 9:00 AM EST Hospital Encounter Non-Invasive Cardiology Lab [place] [address] Arrived 07/27/2024 3:30 PM EST Office Visit Rheumatology at [place] [address] Gabe Fong MD [facility] [place] [address] 12/07/2024 2:30 PM EDT TH Visit (TeleHealth) Gastroenterology at [place] [address] Rosemarie Morrow, SKIP [facility] [place] [address] documented as of this encounter Visit Diagnoses Not on filedocumented in this encounter Care Teams Toll Gate Tender Relationship Specialty Start Date End Date Marcio Devlin DO [address] [place] [address] PCP - General Family Medicine 11/11/17 documented as of this encounter
--- OUTSIDE RECORDS SUMMARY | 2024-06-14 15:32 | XMS_ITS | Encounter Summary ---
Author Organization [facility] Address [facility] [place] [address] Care Team Providers Care Process Engineer Name Role Phone Marcio Devlin DO Primary Care Provider [phone] Encounter Details Date Type Department Care Team (Latest Contact Info) Description 03/09/2019 9:50 AM EDT - 03/09/2019 11:59 PM EDT Hospital Encounter XRay at [address] [place] [address] Glenn Choe MD [facility] [place] [address] Primary osteoarthritis of right hip Discharge Disposition: [...] telephone the diagnostic section of radiology at [phone]. documented in this encounter Medications at Time of Discharge Medication Sig Dispensed Refills Start Date End Date PROAIR HFA 90 mcg/actuation HFA Aerosol Inhaler as needed. 07/20/2018 topiramate 50 mg capsule,sprinkle,ER 24hr TAKE ONE CAPSULE BY MOUTH TWICE A DAY 3 08/25/2018 aspirin 81 mg Tablet, Delayed Release (E.C.) Take 81 mg by mouth daily. SUMAtriptan (IMITREX) 20 mg/actuation [place], Non-Aerosol 1 spray as needed. 11/03/2017 metFORMIN [...] 2:00 PM EDT Appointment Non-[place] [address] Luis Alfredo Velazquez MD [facility] [place] [address] 07/02/2024 4:00 PM EDT Office Visit Cardiology at [place] [phone] [place] [facility] [place] [address] 07/02/2024 4:40 PM EDT Office [place] [address] Luis Alfredo Velazquez MD [facility] [place] [address] 07/18/2024 9:00 AM EST Hospital Encounter Non-Invasive Cardiology Lab [address] Arrived 07/27/2024 3:30 PM EST Office Visit Rheumatology at [address] Gabe Fong MD [facility] [place] [address] 12/07/2024 2:30 PM EDT TH Visit (TeleHealth) Gastroenterology at [place] [phone] Rosemarie Morrow, SKIP [facility] [place] [address] documented as of this encounter Procedures Procedure [...] below. ? Electronically signed by: Danika Carlton [facility] ([phone]), at 03/09/2019 2:51 PM Narrative 03/09/2019 2:51 PM EDT HISTORY: Right hip pain, hip joint etiology? RIGHT HIP JOINT INJECTION UNDER FLUOROSCOPY TECHNIQUE: After an extensive conversation with the patient regarding risks and benefits, oral and written consent were obtained.? A pre- procedural time-out was performed, including review of the patient's relevant electronic medical record and allergies, as per [facility] protocol. The patient was placed supine on [...] relevant electronic medicalrecord and allergies, as per [facility] protocol. The patient was placed supine on [...] contact the number below. Electronically signed by: Danika Carlton [facility]([phone]), at 03/09/2019 2:51 PM Glenn Choe MD [...] EDT documented in this encounter Care Teams Process Engineer Relationship Specialty Start Date End Date Marcio Devlin DO [address] [place] [address] PCP - General Family Medicine 11/11/17 documented as of this encounter
--- OUTSIDE RECORDS SUMMARY | 2024-06-14 15:32 | XMS_ITS | Encounter Summary ---
Author Organization [facility] [place] [address] Care Team Providers Care Llama Farmer Name Role Phone Marcio Devlin DO Primary Care Provider [phone] Encounter Details Date Type Department Care Team (Late st Contact Info) Description 11/09/2019 10:30 AM EST - 11/09/2019 11:15 AM EST [place] [phone] Froilan Sahni MD [facility] [place] [address] COLONOSCOPY, DIAGNOSTIC (WRVU 3.26) Social History Tobacco [...] occurs, please contact your Doctor. Please call [phone] before 8pm Mon-Fri with problems, questions or concerns. If you call after 8pm or on weekends, call the Hospital at [phone] and ask to speak to the Post Form Remover concrete mixer operator and the concrete mixer operator will contact that person for you. When should you call for help? Call [phone] anytime you think you may need emergency [...] Visit Summary and more online at [email or web address] If you would like to [...] cost to you. Content Version: 12.2 ?? [id number] [employer]. Care instructions adapted under license by [facility]. If you have questions about a medical condition or this instruction, always ask your healthcare professional. [employer] disclaims any warranty or liability for your [...] by mouth daily. SUMAtriptan (IMITREX) 20 mg/actuation [place], Non-Aerosol 1 spray as needed. 11/03/2017 metFORMIN [...] complication. Informed Consent signed by patient (or manufacturers service representative). documented in this encounter Plan of Treatment Upcoming Encounters Date Type Department Care Team (Late st Contact Info) Description 07/02/2024 2:00 PM EDT Appointment Non-Invasive Cardiology Lab [place] [phone] Luis Alfredo Velazquez MD [facility] CARDIOLOGY [place], [place] [phone] 07/02/2024 4:00 PM EDT Office Visit Cardiology at [place] [phone] [place] [facility] [place] [address] 07/02/2024 4:40 PM EDT Office Visit Cardiology at [address] [address] Luis Alfredo Velazquez MD [facility] [place] [address] 07/18/2024 9:00 AM EST Hospital Encounter Non-Invasive Cardiology Lab [place] [phone] Arrived 07/27/2024 3:30 PM EST Office Visit Rheumatology at [place] [phone] Gabe Fong MD [facility] [place] [address] 12/07/2024 2:30 PM EDT TH Visit (TeleHealth) Gastroenterology at [place] [phone] Rosemarie Morrow, SKIP [facility] [place] [address] documented as of this encounter [...] Routine 11/09/2019 11:10 AM EST Colonoscopy, Biopsy (46832) 11/09/2019 10:48 AM EST hx poylps- 2 yr surveillance Colonoscopy, Diagnostic ([id number]) 11/09/2019 10:48 AM EST hx poylps- 2 yr surveillance COLONOSCOPY Routine 11/09/2019 9:34 AM EST documented in this encounter Results * Specimen to Pathology (11/09/2019 11:33 AM EST) AP Specimen 11/09/2019 11:3 3 AM EST 11/09/2019 11:33 AM EST Narrative [facility] - 11/09/2019 11:33 AM EST Specimen requisition ordered. ??Separate Pathology report to follow Froilan Sahni MD PATHOLOGY/CYTOLOG Y ORDERABLES [facility] [place] [address] * Specimen to Pathology (11/09/2019 11:33 AM EST) AP Specimen 11/09/2019 11:3 3 AM EST 11/09/2019 11:33 AM EST Narrative [facility] - 11/09/2019 11:33 AM EST Specimen requisition ordered. ??Separate Pathology report to follow Froilan Sahni MD PATHOLOGY/[place] [address] * Specimen to Pathology (11/09/2019 11:33 AM EST) AP Specimen 11/09/2019 11:3 3 AM EST 11/09/2019 11:33 AM EST Narrative [facility] - 11/09/2019 11:33 AM EST Specimen requisition ordered. ??Separate Pathology report to follow Froilan Sahni MD PATHOLOGY/CYTOLOG Y ORDERABLES Performing Organization Address City/[facility]/[place] [address] * Specimen to Pathology (11/09/2019 11:33 AM EST) AP Specimen 11/09/2019 11:3 3 AM EST 11/09/2019 11:33 AM EST Narrative [facility] - 11/09/2019 11:33 AM EST Specimen requisition ordered. ??Separate Pathology report to follow Froilan Sahni MD PATHOLOGY/CYTOLOG Y ORDERABLES Performing Organization Address City/[facility]/[place] [address] * Specimen to Pathology (11/09/2019 11:33 AM EST) AP Specimen 11/09/2019 11:3 3 AM EST 11/09/2019 11:33 AM EST Narrative [facility] - 11/09/2019 11:33 AM EST Specimen requisition ordered. ??Separate Pathology report to follow Froilan Sahni MD PATHOLOGY/CYTOLOG Y ORDERABLES Performing Organization Address City/[facility]/[place] [address] * Surgical Pathology Report (11/09/2019 11:10 AM EST) Final Diagnosis [id number] ? Location: 4T; EA13; A The signing [...] Dg Grande Verified: ??11/10/2019 ?Pathologist Performed at: ??-[facility] Dept. of Pathology, [place], [place] CLINICAL INFORMATION Specimen Submitted: A - [...] labeled E1. ??elisa 11/10/2019 4:44 PM EST [facility] GI Biopsy 11/09/2019 11:1 0 [...] MD PATHOLOGY/CYTOLOG Y ORDERABLES Performing Organization Address [facility]/State/ZIP Co de Phone Number [facility] [place] [address] * COLONOSCOPY (11/09/2019 9:34 AM EST) COLONOSCOPY [facility] Endoscopy ___ Procedure Date: 11/09/2019 9:34 AM ? Patient Name: Kim Funes ? Date of : 1960 ? Age: 59 ? Order #: [id number] ? Instrument Name: [id number] ? ___ Procedure: ? Colonoscopy Indications: ? High risk colon cancer surveillance: ? Ulcerative pancolitis of 8 (or more) ? years duration Patient Profile: ? This is a 59 year old female. This ? patient has ulcerative pancolitis, is ? taking adalimumab and is experiencing ? mild symptoms. Providers: ? Froilan Sahni MD, Avani Hayes ? Sarah, RN, Lawrence Natarajan Referring : ?Marcio Devlin, DO [...] CONTINUOUS, Starting on 11/09/19 at 1000, Until Tu11/09/19 at 1246, Endoscopy (Day of Procedure) New [...] CONTINUOUS, Starting on 11/09/19 at 1000, Until Tu11/09/19 at 1246, Endoscopy [...] Avani Smith RN)1104 (Given - Provider: Avani Smith, FRANCESCA)1110 (Given - Provider: Avani Smith RN) documented in this encounter Care Teams Llama Farmer Relationship Specialty Start Date End Date Marcio Devlin DO [address] [place] [address] PCP - General Family Medicine 11/11/17 documented as of this encounter
--- OUTSIDE RECORDS SUMMARY | 2024-06-14 15:32 | XMS_ITS | Encounter Summary ---
Author Organization [facility] Address [facility] [place] [address] Care Team Providers Care Bark Skinner Name Role Phone Marcio Devlin DO Primary Care Provider [phone] Encounter Details Date Type Department Care Team (Late st Contact Info) Description 10/09/2018 [place] [address] Nico Campbell [facility] [place] [address] Ankylosing spondylitis of cervical region Social History [...] Notes * Telephone Encounter - Mai Rendon [facility] - 10/09/2018 10:08 AM EST Specialty Pharmacy Referral; Mai Rendon [facility] Transfer of Services Kim Funes [address] [facility] [address] Telephone Information: The [facility] has received a prescription for Humira for patient Ms. Kim Funes 58 y.o. (1960). Due to a mandate from the patient's insurer, the prescription needs to be filled with [facility]. Spoke with patient to notify of this change and provided numberto reach the new filling pharmacy. A copy of patient's medication profile was offered to the accepting pharmacy. Additional instructions provided to patient about transfer: no The patient has been advised to call the [facility] at [phone] with any questions or concerns on this referral. Thank you, Mai Rendon RPH 10/09/18 10:09 AM Patient understands no changes to current drug regimen were made at this time. documented in this encounter Plan of Treatment Upcoming Encounters Date Type Department Care Team (Late st Contact Info) Description 07/02/2024 2:00 PM EDT Appointment Non-Invasive Cardiology Lab [place] [phone] Luis Alfredo Velazquez MD [facility] [place] [address] 07/02/2024 4:00 PM EDT Office Visit Cardiology at [address] [address] Mars Green PA [facility] [address] [place], [place] [phone] 07/02/2024 4:40 PM EDT Office Visit Cardiology at [address] [phone] Luis Alfredo Velazquez MD [facility] [place] [address] 07/18/2024 9:00 AM EST Hospital Encounter Non-[place] [phone] Arrived 07/27/2024 3:30 PM EST Office Visit Rheumatology at [place] [phone] Gabe Fong MD [facility] [place] [address] 12/07/2024 2:30 PM EDT TH Visit (TeleHealth) [place] [address] Rosemarie Morrow APRN [facility] [place] [address] documented as of this encounter Visit Diagnoses Diagnosis Ankylosing spondylitis of cervical region Ankylosing spondylitis documented in this encounter Care Teams Bark Skinner Relationship Specialty Start Date End Date Marcio Devlin DO [address] [place] [address] PCP - General Family Medicine 11/11/17 documented as of this encounter
--- OUTSIDE RECORDS SUMMARY | 2024-06-14 15:32 | XMS_ITS | Encounter Summary ---
Author Organization [facility] Address [facility] [place] [address] Care Team Providers Care Glass Pulverizer Equipment Operator Name Role Phone Marcio Devlin DO Primary Care Provider Reason for Referral * Diagnostic Test (Routine) - Closed Specialty Diagnoses / Procedures Referred By Contac t Referred To Contact Radiology Diagnoses Ankylosing spondylitis, unspecified site of spine Procedures DXA Central-Spine, Hip, And/Or Whole Body (Generic) Nico Campbell [facility] [place] [address] [place] [address] Referral ID Status Reason Start Date Expiration Date V isits Requested Visits Authorized [id number] Closed Specialty Service Requested 08/31/2018 08/31/2019 1 1 Encounter Details Date Type Department Care Team (Late st Contact Info) Description 08/31/2018 10:30 AM EST Office Visit Rheumatology at [facility] [place] [address] Nico Campbell [facility] [place] [address] Ankylosing spondylitis, unspecified site of [...] Follow-up Visit PCP: Marcio Devlin DO [address] [place] [address] Rheumatological History: 1. UC associated Ankylosing Spondylitis [...] -Continue current meds: 1) Humira 40 mg o2xicpk 2) SZS 1000 mg BID -Check labs: [...] 2:00 PM EDT Appointment Non-[place] [phone] Luis Alfredo Velazquez MD [facility] [place] [address] 07/02/2024 4:00 PM EDT Office Visit Cardiology at [place] [phone] [place] [facility] [place] [address] 07/02/2024 4:40 PM EDT Office [place] [address] Luis Alfredo Velazquez MD [facility] [place] [address] 07/18/2024 9:00 AM EST Hospital Encounter Non-Invasive Cardiology Lab [address] Arrived 07/27/2024 3:30 PM EST Office Visit Rheumatology at [place] [address] Gabe Fong MD [facility] [place] [address] 12/07/2024 2:30 PM EDT TH Visit (TeleHealth) Gastroenterology at [place] [address] Rosemarie Morrow, SKIP [facility] [place] [place] [address] documented as of this encounter Procedures Procedure Name Priority Date/Time Associated Diagnosis Comments HEMOGRAM Routine 08/31/2018 11:34 AM EST Ankylosing spondylitis, unspecified site of spine DIFFERENTIAL, AUTOMATED Routine 08/31/2018 11:34 AM EST Ankylosing spondylitis, unspecified site of spine CBC (WITH DIFF) Routine 08/31/2018 11:34 AM EST Ankylosing spondylitis, unspecified site of spine COMPREHENSIVE METABOLIC PANEL Routine 08/31/2018 11:34 AM EST Ankylosing spondylitis, [...] BMD measurements and plots are available in EPerformance Indicator under the imaging tab. Paper copies will be sent to providers without E- access. If you have received this report without the data sheet and do not have access to Citelighter, please contact Radiology Premium Representative at [phone] Friday thru Friday 8am-4pm. Thank you for [...] BMD measurements and plots are available in EPerformance Indicatorunder the imaging tab. Paper copies will be sent to providers without Citelighter access.If you have received this report without the data sheet and do not haveaccess to Citelighter, please contact Radiology [facility] at [phone] Friday thruFriday 8am-4pm. Thank you for letting us participate in the care of this patient. Forquestions regarding this report, please contact the number below. Oc Gresham MD IMG DEXA ORDERABLES * Differential, Automated (08/31/2018 11:34 AM EST) Neutrophil % 46.1 % [facility] Neutrophil Absolute 2.91 1.70 - 6.10 x10(3)/[facility] Lymph % 43.5 % [facility] Lymphocytes Abs 2.8 0.9 - 3.2 x10(3)/[facility] Monocyte % 7.4 % [facility] Monocyte Abs 0.5 0.3 - 0.9 x10(3)/[facility] Eos % 2.2 % [facility] Eosinophils Abs 0.1 0.0 - 0.4 x10(3)/[facility] Basophil % 0.6 % [facility] Baso Absolute 0.0 0.0 - 0.1 x10(3)/[facility] Immature Gran % 0.20 % [facility] Comment: Immature granulocytes(IG's)percentage and absolute count will include metamyelocytes, myelocytes, and promyelocytes. Blood smears from CBCs yielding IG's will be scanned manually for concordance. If this scan disagrees with the automated IG or if promyelocytes are noted, a manual differential will be performed. Immature Gran Absolute 0.01 0.00 - 0.04 x10(3)/[facility] Blood specimen (specimen) 08/31/2018 11:34 AM EST 08/31/2018 11:47 AM EST Narrative Resulting Agency Comment Spec In Lab Nico Campbell DO HEMATOLOGY ORDERABLE S Performing Organization Address City/State/[facility] Co de Phone Number [facility] [place] [address] * Hemogram (08/31/2018 11:34 AM EST) White Blood Cell 6.3 4.0 - 9.5 x10(3)/[facility] Red Blood Cell 4.76 4.00 - 5.21 x10(6)/[facility] Hemoglobin 14.6 11.7 - 15.5 gm/dL [facility] Hematocrit 44.5 35.7 - 45.8 % [facility] Mean Cell Volume 93.5 82.6 - 94.4 fL [facility] Mean Cell Hemoglobin 30.7 27.1 - 32.0 pg [facility] Mean Cell Hemoglobin Concentration 32.8 31.7 - 35.0 gm/dL [facility] Platelet 184 145 - 357 x10(3)/[facility] RDW Standard Deviation 44.2 37.0 - 46.0 fL [facility] RDW coefficient of variation 13.0 11.5 - 14.1 % [facility] Mean Platelet Volume 11.0 7.6 - 12.9 fL [facility] NRBC% auto 0.0 % [facility] NRBC Absolute 0.000 0.000 - 0.000 x10(3)/mcL [facility] Blood specimen (specimen) 08/31/2018 11:34 AM EST 08/31/2018 11:47 AM EST Narrative Resulting Agency Comment Spec In Lab Nico Campbell DO HEMATOLOGY ORDERABLE S [facility] [place] [address] * Comprehensive metabolic panel (non-fasting) (08/31/2018 11:34 AM EST) Glucose 151 65 - 199 mg/dL [facility] Comment:Diabetes: >=200 mg/d L plus symptoms Blood Urea Nitrogen 16 8 - 18 mg/dL [facility] Creatinine 0.87 0.70 - 1.20 mg/dL [facility] Sodium 143 135 - 145 mmol/L [facility] Potassium 4.1 3.5 - 5.0 mmol/L [facility] Comment: Please note: ??Patients with WBC >100,000 may have falsely elevated Potassium levels. ??For accurate Potassium quantification in these patients send serum separator tube (gold top) for subsequent determinations. ??Contact the Clinical Chemistry Laboratory if there are any questions. Chloride 106 98 - 107 mmol/L [facility] Carbon Dioxide 27 22 - 31 mmol/L [facility] Anion Gap 10 5 - 15 mmol/L [facility] Calcium 9.8 8.5 - 10.5 mg/dL [facility] Protein, Total 7.6 6.1 - 8.0 gm/dL [facility] Albumin 4.1 3.2 - 5.2 gm/dL [facility] Aspartate Aminotransferase 25 0 - 30 unit/L [facility] Alanine Aminotransferase 26 0 - 30 unit/L [facility] Alkaline Phosphatase 89 40 - 104 unit/L [facility] Bilirubin, Total 0.4 0.2 - 1.3 mg/dL [facility] Est Glomerular Filtration Rate 74 >=60 mL/min/1. 73 m?? [facility] Comment: The eGFR was calculated using the CKD-EPI equation. As with all creatinine based estimates of kidney function, eGFR values calculated with the CKD-EPI equation are not accurate in patients with acute kidney failure, extremes of body mass or the acutely ill. http://[employer] Forms/[facility] eGFR 86 >=60 mL/min/1. 73 m?? [facility] Comment: The eGFR was calculated using the CKD-EPI equation. As with all creatinine based estimates of kidney function, eGFR values calculated with the CKD-EPI equation are not accurate in patients with acute kidney failure, extremes of body mass or the acutely ill. http://[employer] Forms/[facility] Blood specimen (specimen) 08/31/2018 11:34 AM EST 08/31/2018 11:47 AM EST Narrative Resulting Agency Comment Spec In Lab Oc Gresham MD CHEMISTRY ORDERABLES Performing Organization Address City/State/[facility] Co de Phone Number [facility] [place] [address] documented in this encounter Visit Diagnoses Diagnosis Ankylosing spondylitis, unspecified site of spine- Primary Ankylosing spondylitis, unspecified site of spine documented in this encounter Care Teams Glass Pulverizer Equipment Operator Relationship Specialty Start Date End Date Marcio Devlin DO [address] [place] [address] PCP - General Family Medicine 11/11/17 documented as of this encounter
--- OUTSIDE RECORDS SUMMARY | 2024-06-14 15:32 | XMS_ITS | Encounter Summary ---
[place] [address] Care Team Providers Care Entry Level Financial Analyst Name Role Phone Marcio Devlin DO Primary Care Provider Encounter Details Date Type Department Care Team (Late st Contact Info) Description 09/30/2019 Specialty [place] [phone] Juan Carlos Joseph Social History Tobacco Use [...] PM EDT Appointment Non-Invasive [place] [phone] Luis Alfredo Velazquez MD [facility] [place] [address] 07/02/2024 4:00 PM EDT Office Visit Cardiology at [address] [place] [facility] [place] [address] 07/02/2024 4:40 PM EDT Office Visit Cardiology at [place] [address] Luis Alfredo Velazquez MD [facility] [place] [address] 07/18/2024 9:00 AM EST Hospital Encounter Non-[place] [address] Arrived 07/27/2024 3:30 PM EST Office Visit Rheumatology at [place] [address] Gabe Fong MD [facility] [place] [address] 12/07/2024 2:30 PM EDT TH Visit (TeleHealth) Gastroenterology at [place] [phone] Rosemarie Morrow APRN [facility] [place] [address] documented as of this encounter Visit Diagnoses Not on filedocumented in this encounter Care Teams Entry Level Financial Analyst Relationship Specialty Start Date End Date Marcio Devlin DO [address] [place] [address] PCP - General Family Medicine 11/11/17 documented as of this encounter
--- OUTSIDE RECORDS SUMMARY | 2024-06-14 15:32 | XMS_ITS | Encounter Summary ---
[place] [address] Care Team Providers Care Sr. Media Manager Name Role Phone Marcio Devlin DO Primary Care Provider [phone] Encounter Details Date Type Department Care Team (Late st Contact Info) Description 05/31/2019 Specialty [place] [phone] Juan Carlos Joseph Social History Tobacco Use [...] 2:00 PM EDT Appointment Non-Invasive [place] [phone] Luis Alfredo Velazquez MD [facility] [place] [address] 07/02/2024 4:00 PM EDT Office Visit Cardiology at [address] [place] [facility] [place] [address] 07/02/2024 4:40 PM EDT Office Visit Cardiology at [place] [address] Luis Alfredo Velazquez MD [facility] [place] [address] 07/18/2024 9:00 AM EST Hospital Encounter Non[place] [address] Arrived 07/27/2024 3:30 PM EST Office Visit Rheumatology at [place] [address] Gabe Fong MD [facility] [place] [address] 12/07/2024 2:30 PM EDT TH Visit (TeleHealth) Gastroenterology at [place] [phone] Rosemarie Morrow APRN [facility] [place] [address] documented as of this encounter Visit Diagnoses Not on filedocumented in this encounter Care Teams Sr. Media Manager Relationship Specialty Start Date End Date Marcio Devlin DO [address] [place] [address] PCP - General Family Medicine 11/11/17 documented as of this encounter
--- OUTSIDE RECORDS SUMMARY | 2024-06-14 15:33 | XMS_ITS | Encounter Summary ---
Author Organization [facility] Address [facility] [place] [address] Care Team Providers Care Manager Banquet Name Role Phone Marcio Devlin DO Primary Care Provider [phone] Reason for Visit * Reason Comments Establish Care * Consultation (Routine) - Closed Specialty Diagnoses / Procedures Referred By Missy escalera Referred To Contact Obstetrics and Gynecology Diagnoses Urethral caruncle, Stress urinary incontinence Franki Hancock MD [address] [place] [address] [facility] Radio Despatcher [address] [place] [address] Referral ID Status Reason Start Date Expiration Date Visits Re quested Visits Authorized [id number] Closed 09/02/2017 09/02/2018 1 1 Encounter Details Date Type Department Care Team (Late st Contact Info) Description 02/20/2018 3:00 PM EDT Office Visit Obstetrics [place] [address] Liang Fong MD [facility] [place] [address] Uterovaginal prolapse, incomplete (Primary Dx); Urinary, [...] Female Pelvic Medicine and Reconstructive Surgery @ [facility] Patient Name: Kim Funes Patient [...] secondary to snk spond so was referred [facility] for anesthesia to evaluate. Has ank spond [...] WITH BX performed by YAQUELIN ESTRADA at [facility] ??? PRO COLONOSCOPY, BIOPSY N/A 03/04/2017 COLONOSCOPY FLEXIBLE, WITH BX (WRVU 3.66) performed by Raúl Austin MD at [facility] ??? PRO COLONOSCOPY, REMV LESN, SNARE 01/02/2011 COLONOSCOPY, POLYPECTOMY, REMOVAL LESION BY SNARE performed by YAQUELIN ESTRADA at [facility] ??? PRO COLONOSCOPY, REMV LESN, SNARE N/A 03/04/2017 COLONOSCOPY, POLYPECTOMY, REMOVAL LESION BY SNARE (WRVU 4.67) performed by Raúl Austin MD at [facility] ??? SALPINGECTOMY Obstetric History [...] kit 5 ??? SUMAtriptan (IMITREX) 20 mg/actuation [place], Non-Aerosol 1 spray as needed. ??? ferrous [...] test (empty supine): POSITIVE External Genitalia: Vulva, [place]'s and Bartholin glands normal, urethra without tenderness [...] her uterovaginal prolapse: 1. Vaginal hysterectomy with [place] ligament (uterosacral or sacrospinous) repair, with 70-80% [...] supportive measures. The patient did sign the [facility] acute narcotic consent form in anticipation of typical post-operative opioid therapy for approximately 7 days. Liang Fong MD Division of Female Pelvic Medicine/Reconstructive Surgery CC: DO Franki Booth documented in this encounter Plan of Treatment Upcoming Encounters Date Type Department Care Team (Late st Contact Info) Description 07/02/2024 2:00 PM EDT Appointment Non-[place]vasive [place] [address] Luis Alfredo Velazquez MD [facility] [place] [address] 07/02/2024 4:00 PM EDT Office Visit Cardiology at [address] [place] [facility] [place] [address] 07/02/2024 4:40 PM EDT Office Visit Cardiology at [place] [phone] Luis Alfredo Velazquez MD [facility] [place] [address] 07/18/2024 9:00 AM EST Hospital Encounter Non-Invasive Cardiology Lab [place] [address] Arrived 07/27/2024 3:30 PM EST Office Visit Rheumatology at [place] [address] Gabe Fong MD [facility] [place] [address] 12/07/2024 2:30 PM EDT TH Visit (TeleHealth) [place] [address] Rosemarie Morrow APRN [facility] [place] [address] documented as of this encounter Visit Diagnoses Diagnosis Uterovaginal prolapse, incomplete- Primary Urinary, incontinence, stress female Female stress incontinence documented in this encounter Care Teams Manager Banquet Relationship Specialty Start Date End Date Marcio Devlin DO [address] [place] [address] PCP - General Family Medicine 11/11/17 documented as of this encounter
--- OUTSIDE RECORDS SUMMARY | 2024-06-14 15:33 | XMS_ITS | Encounter Summary ---
Author Organization [facility] Address [facility] [place] [address] Care Team Providers Care Ammonia Nitrate Operator Name Role Phone Marcio Devlin DO Primary Care Provider [phone] Reason for Visit * Auth/Cert Specialty Diagnoses [...] Expiration Date Visits Re quested Visits Authorized [id number] 1 1 Encounter Details Date Type Department Care Team (Late st Contact Info) Description 03/10/2018 7:30 AM EDT - 03/10/2018 11:18 AM EDT Surgery Main Operating Room [facility] [place] [address] Liang Fong MD [facility] [place] [address] HYSTERECTOMY, VAGINAL, REMOVAL TUBE(S) & OR OVARY(S) (WRU 15.91) Social History Tobacco Use Types Packs/Day Years [...] Kim Funes Patient Age: 57 y.o. Language: Italian Race: White Ethnicity: Not nor Admit date: 03/10/2018 Discharge date and time: 03/11/2018 Attending Physician: Liang Fong MD Discharge Physician: Liang Fong MD Follow-up Recommendations for Providers: Follow up appointment: 04/21/18 at 1:[address] Fong Inpatient Provider Contact Information: Female Pelvic Medicine and Reconstructive Surgery Department of Obstetrics and Gynecology [phone] Discharge Diagnoses (Hospital Problems) and Secondary Diagnoses [...] secondary to snk spond so was referred [facility] for anesthesia to evaluate. Hospital Course: Kim [...] 1000 mg Refills: 0 SUMAtriptan 20 mg/actuation [place] Commonly known as: IMITREX 1 spray as [...] in with the urogynecology office nurse at [phone] to review how your bladder is working and when the catheter use can be discontinued. For problems or concerns related to this hospitalization call: [phone] weekdays, or [phone] weekends or nights. Call your doctor if [...] Liang Fong MD Obstetrics and Gynecology at [place] [phone] 08/31/2018 11:00 AM Nico Campbell DO Rheumatology at [place] [phone] Discharge References/Attachments None Provider Contact Information: Marcio Devlin DO [phone] documented in this encounter Discharge Instructions * [...] in with the urogynecology office nurse at [phone] to review how your bladder is working and when the catheter use can be discontinued. For problems or concerns related to this hospitalization call: [phone] weekdays, or [phone] weekends or nights. Call your doctor if [...] by mouth daily. SUMAtriptan (IMITREX) 20 mg/actuation [place], Non-Aerosol 1 spray as needed. 11/03/2017 metFORMIN [...] output FEK: D/c IVF. Tolerating PO intake. ASIC VERIFICATION ENGINEER: Final pathology report pending. -Follow up in [...] history. She is Post-operative day #1 from [facility], [place]. Retropubic MUS, cysto. I [...] intake. -Wean IVF when tolerating full diet ASIC VERIFICATION ENGINEER: Final pathology report pending. -Follow up in clinic 4-6 weeks postoperatively Endocrine: DM II - sensitive SSI ordered ID: Afebrile, received prophylactic antibiotics preop, no evidence of infection -continue to monitor vital signs. Prophylaxis: SCDs while in bed, encourage ambulation, incentive spirometry Dispo: Anticipate discharge tomorrow Code Status: Full Code Jason Stapleton MD PGY-2 03/10/2018 Gynecology Service Pager: [phone] ([phone]), otherwise page [phone] * Aleta Croft, RN - 03/10/2018 11:25 AM EDT Pt arrived from OR to PACU. Placed on monitor and alarms adjusted. Received report.1225: infor visit. documented in this encounter H&P Notes * Victorina Becker - 03/10/2018 6:30 AM EDT Inpatient INDUSTRIAL ENGINEERING TECHNICIAN - Admission Interval Note I have reviewed [...] Fong MD - 03/10/2018 11:21 AM EDT [facility] Operative Note Patient Name: Kim Funes : [id number] MR#: [id number] Case Date: 03/10/2018 Surgeon: Surgeon(s) and Role: [...] the cervical portio with 1% lidocaine with [id number] Epinephrine solution. A weighted speculum had been [...] defect, and this was reapproximated with a [id number]-xu-bwgkb 0Vicryl suture in interrupted fashion. After the [...] Operative Note Patient Name: Kim Funes : [id number] MR#: [id number] Case Date: 03/10/2018 Surgeon: Surgeon(s) and Role: * Liang Fong MD - Primary * Victorina Becker MD * Elizabeth bAreu MD - Resident-Surgeon Chief Preoperative diagnosis: UTERINE [...] PM EDT Appointment Non-Invasive [place] [phone] Luis Alfredo Velazquez MD [facility] [place] [address] 07/02/2024 4:00 PM EDT Office Visit Cardiology at [address] [address] Mars Green PA [facility] [place] [address] 07/02/2024 4:40 PM EDT Office Visit Cardiology at [address] [phone] Luis Alfredo Velazquez MD [facility] [place] [place] [address] 07/18/2024 9:00 AM EST Hospital Encounter Non-Invasive [place] [address] Arrived 07/27/2024 3:30 PM EST Office Visit [place] [address] Gabe Fong MD [facility] [address] [place] [address] 12/07/2024 2:30 PM EDT TH Visit (TeleHealth) [place] [address] Rosemarie Morrow APRN [facility] [place] [address] documented as of this encounter Procedures Procedure Name Priority Date/Time Associated Diagnosis Comments FIRE PREVENTION ENGINEER SCAN 03/12/2018 12:00 AM EDT POCT GLUCOSE [...] in this encounter Results * SCAN DOC: FIRE PREVENTION ENGINEER (03/12/2018 12:00 AM EDT) Anatomical Region Laterality Modality Other Narrative 03/12/2018 12:00 AM EDT Ordered by an unspecified provider. Scanning Provider MEDIA MGR SCAN EXT O RDR/RSLT * POCT Glucose (03/11/2018 7:16 AM EDT) Glucose, POC 121 65 - 199 mg/dL [facility] Comment: Supplemental ranges: <140 mg/dL before meals <180 mg/dL all other times of the day Blood specimen (specimen) 03/11/2018 7:16 AM EDT 03/11/2018 7:16 AM EDT Liang Fong MD POINT OF CARE TEST O IRMA Performing Organization Address [facility] Co de Phone Number [facility] [place] [address] * POCT Glucose (03/10/2018 9:20 PM EDT) Glucose, POC 107 65 - 199 mg/dL [facility] Comment: Supplemental ranges: <140 mg/dL before meals <180 mg/dL all other times of the day Blood specimen (specimen) 03/10/2018 9:20 PM EDT 03/10/2018 9:20 PM EDT Liang Fong MD POINT OF CARE TEST O IRMA Performing Organization Address [facility] Co de Phone Number [facility] [place] [address] * POCT Glucose (03/10/2018 4:39 PM EDT) Glucose, POC 110 65 - 199 mg/dL [facility] Comment: Supplemental ranges: <140 mg/dL before meals <180 mg/dL all other times of the day Blood specimen (specimen) 03/10/2018 4:39 PM EDT 03/10/2018 4:39 PM EDT Liang Fong MD POINT OF CARE TEST O RDERADARLEEN Performing Organization Address [facility]/ZIP Co de Phone Number [facility] [place] [address] * POCT Glucose (03/10/2018 11:23 AM EDT) Glucose, POC 137 65 - 199 mg/dL [facility] Comment: Supplemental ranges: <140 mg/dL before meals <180 mg/dL all other times of the day Blood specimen (specimen) 03/10/2018 11:23 AM EDT 03/10/2018 11:23 AM EDT Liang Fong MD POINT OF CARE TEST O IRMA Performing Organization Address [facility] Co de Phone Number [facility] [place] [address] * Specimen to Pathology (03/10/2018 9:22 AM EDT) AP Specimen 03/10/2018 9:22 AM EDT 03/10/2018 11:02 AM EDT Narrative [facility] - 03/10/2018 11:03 AM EDT Specimen requisition ordered. ??Separate Pathology report to follow Resulting Agency Comment Spec In Lab Liang Fong MD PATHOLOGY/CYTOLOGY O IRMA Performing Organization Address [facility] de Phone Number [facility] [place] [address] * Surgical Pathology Report (03/10/2018 9:00 AM EDT) Final Diagnosis [id number] ? Location: U; 14; A The signing [...] Marc Hayes Verified: ??03/16/2018 ?Pathologist Performed at: ??-[facility] Dept. of Pathology, [place], [place] CLINICAL INFORMATION Specimen Submitted: A - [...] nodules. (R5) nsm 03/16/2018 2:03 PM EDT [facility] Uterine Corpus 03/10/2018 9: 00 AM EDT 03/10/2018 9:00 AM EDT Liang Fong MD PATHOLOGY/CYTOLOGY O RDERABLES [facility] [place] [address] * POCT Glucose (03/10/2018 6:28 AM EDT) Glucose, POC 107 65 - 199 mg/dL [facility] Comment: Supplemental ranges: <140 mg/dL before meals <180 mg/dL all other times of the day Blood specimen (specimen) 03/10/2018 6:28 AM EDT 03/10/2018 6:28 AM EDT Liang Fong MD POINT OF CARE TEST [place] [address] documented in this encounter Visit Diagnoses Not [...] hours, Routine 1340 (Given - Provider: Chantell Moy, FRANCESCA)1756 (Given - Provider: Chantell Moy RN) 0006 [...] RN)1841 (New Bag - Provider: Chantell Moy, RN) 0624 (Stopped - Provider: Carmencita Waters, RN) [...] Routine documented in this encounter Care Teams Ammonia Nitrate Operator Relationship Specialty Start Date End Date Marcio Devlin DO [facility] [place] [place] [address] PCP - General Family Medicine 11/11/17 documented as of this encounter
--- OUTSIDE RECORDS SUMMARY | 2024-06-14 15:33 | XMS_ITS | Encounter Summary ---
Author Organization [facility] [place] [address] Care Team Providers Care Building Maintenance Mechanic Name Role Phone Marcio Devlin DO Primary Care Provider [phone] Encounter Details Date Type Department Care Team (Late st Contact Info) Description 02/24/2018 4:15 PM EDT Office [place] [address] Nico Campbell [facility] [place] [address] Ankylosing spondylitis, unspecified site of spine (Primary [...] Marcio Devlin DO [address] [place] [address] Rheumatological History: 1. UC associated Ankylosing Spondylitis [...] current medication regimen is Humira 40 mg a1egvwi and Sulfasalazine 500mg BID-both of which she [...] exam currently. MSK US done by Dr. Castor revealed no significant synovitis. Currently on Humira [...] to be done when she comes into [facility] for labs/tests -Will continue current medication regimen: [...] 2:00 PM EDT Appointment Non-[place] [address] Luis Alfredo Velazquez MD [facility] [address] [place] [address] 07/02/2024 4:00 PM EDT Office Visit Cardiology at [address] [phone] Mars Green PA [facility] [place] [address] 07/02/2024 4:40 PM EDT Office Visit Cardiology at [address] [phone] Luis Alfredo Velazquez MD [facility] [place] [address] 07/18/2024 9:00 AM EST Hospital Encounter Non-[place] [address] Arrived 07/27/2024 3:30 PM EST Office Visit Rheumatology at [place] [phone] Gabe Fong MD [facility] [place] [address] 12/07/2024 2:30 PM EDT TH Visit (TeleHealth) Gastroenterology at [place] [phone] Rosemarie Morrow, SKIP [facility] [place] [address] documented as of this encounter Visit Diagnoses Diagnosis Ankylosing spondylitis, unspecified site of spine- Primary documented in this encounter Care Teams Building Maintenance Mechanic Relationship Specialty Start Date End Date Marcio Devlin DO [address] [place] [address] PCP - General Family Medicine 11/11/17 documented as of this encounter
--- OUTSIDE RECORDS SUMMARY | 2024-06-14 15:33 | XMS_ITS | Encounter Summary ---
Author Organization [facility] Address [facility] [place] [address] Care Team Providers Care Ordnance Corps Officer Name Role Phone Marcio Devlin DO Primary Care Provider [phone] Reason for Visit * Auth/Cert Specialty Diagnoses [...] Expiration Date Visits Re quested Visits Authorized [id number] 1 1 Encounter Details Date Type Department Care Team (Late st Contact Info) Description 03/10/2018 7:42 AM EDT Anesthesia Event [place] [phone] Waylon Power MD [facility] [place] [address] [place], GAUGE CHECKER [address] [facility] 3B-1 [place] [address] Anesthesia Record Procedure Summary Procedure [...] 0831 Break/Relief In Gracie K Todd k, CLIP RIVETER 0852 Break/Relief Out 1101 Extubation/LMA Out 1115 [...] basilic vein (medial side of arm), left; uyqv-fme-arbewi catheter system; 20 gauge; Lorelei Mederos; distraction, [...] Horton MD - 03/10/2018 11:35 AM EDT [facility] Department of Anesthesiology Post-procedure Note Patient: Kim Funes Procedure Summary Date Anesthesia Start Anesthesia Stop Room / Location 03/10/18 0742 1125 [facility] Procedure Diagnosis Surgeon Responsible Provider HYSTERECTOMY, VAGINAL, REMOVAL TUBE(S) & OR OVARY(S) (WRVU 15.94) (N/A Uterus); COLPORRHAPHY ANTERIOR-POSTERIOR; INC CYSTOURETHROSCOPY (WRVU 14.44) (N/A ); URETHRAL SUSPENSION, SLING\FASCIA OR SYNTHETIC (WRVU 12.13) (N/A Pelvis); COLPOPEXY, VAGINAL, INTRAPERITONEAL APPROACH (WRVU 11.66) (N/A ) (UTERINE PROLAPSE, STRESS URINARY INCONTINENCE) Liang Fong MD Kendall, Geoffrey L, MD All Anesthesia Providers: Anesthesiologist: Waylon Power MD Machine Coil Assembler: Alexis Horton MD Most Recent Vitals: 03/10/18 1315 BP: Pulse: Resp: Temp: SpO2: 97% Pain 3 (03/10/18 1340) Patient Location: PACU/[facility] Level of Consciousness: Conscious but Sleepy [...] last colonoscopy 09/19/08 (Dr. Shady Luz at [facility]) for surveillance for dysplasia. Areas of skip [...] WITH BX performed by YAQUELIN ESTRADA at [facility] ENDOSCOPY ??? PRO COLONOSCOPY, BIOPSY N/A 03/04/2017 COLONOSCOPY FLEXIBLE, WITH BX (WRVU 3.66) performed by Raúl Austin MD at [facility] ENDOSCOPY ??? PRO COLONOSCOPY, REMV LESN, SNARE 01/02/2011 COLONOSCOPY, POLYPECTOMY, REMOVAL LESION BY SNARE performed by YAQUELIN ESTRADA at [facility]COPY ??? PRO COLONOSCOPY, REMV LESN, SNARE N/A 03/04/2017 COLONOSCOPY, POLYPECTOMY, REMOVAL LESION BY SNARE (WRVU 4.67) performed by Raúl Austin MD at [facility] ENDOSCOPY ??? SALPINGECTOMY Social History Substance [...] no anesthesia since. Was Patient Seen in [facility]? Yes Additional/Outside Data Requested? No Findings, Assessment and Action: Ms. Funes is a 57 y.o. year old female seen in [facility] prior to planned vaginal hysterectomy/lap sling with [...] tolerance is moderate. 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 I will alert the housecleaner floor of her hx of difficult airway so preparations can be in place ahead of her surgery. [place] APRN Pre-Admission Testing [phone] documented in this encounter Plan of Treatment Upcoming Encounters Date Type Department Care Team (Late st Contact Info) Description 07/02/2024 2:00 PM EDT Appointment Non-[place] [phone] Luis Alfredo Velazquez MD [facility] [place] [address] 07/02/2024 4:00 PM EDT Office Visit Cardiology at [address] [phone] Mars Green PA [facility] [place] [address] 07/02/2024 4:40 PM EDT Office Visit Cardiology at [address] [phone] Luis Alfredo Velazquez MD [facility] [place] [address] 07/18/2024 9:00 AM EST Hospital Encounter Non-[place]vasive [place] [address] Arrived 07/27/2024 3:30 PM EST Office [place] [phone] Gabe Fong MD [facility] [address] 12/07/2024 2:30 PM EDT TH Visit (TeleHealth) [place] [address] Rosemarie Morrow, SKIP [facility] [place] [address] documented as of this encounter Visit Diagnoses [...] mg documented in this encounter Care Teams Ordnance Corps Officer Relationship Specialty Start Date End Date Marcio Devlin DO [address] [place] [address] PCP - General Family Medicine 11/11/17 documented as of this encounter
--- OUTSIDE RECORDS SUMMARY | 2024-06-14 15:33 | XMS_ITS | Encounter Summary ---
Author Organization [facility] [place] [address] Care Team Providers Care Freelance Patternmaker Name Role Phone Marcio Devlin DO Primary Care Provider [phone] Encounter Details Date Type Department Care Team (Late st Contact Info) Description 02/24/2018 2:40 PM EDT Clinical [place] [address] Social History Tobacco Use Types [...] EDT Appointment Non-Invasive Cardiology Lab [place] [phone] Luis Alfredo Velazquez MD [facility] [place] [address] 07/02/2024 4:00 PM EDT Office Visit Cardiology at [place] [phone] Mars Green PA [facility] [place] [address] 07/02/2024 4:40 PM EDT Office Visit Cardiology at [place] [phone] Luis Alfredo Velazquez MD [facility] [place] [address] 07/18/2024 9:00 AM EST Hospital Encounter Non-Invasive Cardiology Lab [place] [phone] Arrived 07/27/2024 3:30 PM EST Office Visit Rheumatology at [place] [phone] Gabe Fong MD [facility] [address] 12/07/2024 2:30 PM EDT TH Visit (TeleHealth) Gastroenterology at [place] [phone] Rosemarie Morrow APRN [facility] GASTROENTEROLOGY [place] [phone] documented as of this encounter Visit Diagnoses Not on filedocumented in this encounter Care Teams Freelance Patternmaker Relationship Specialty Start Date End Date Marcio Devlin DO [address] [place] [address] PCP - General Family Medicine 11/11/17 documented as of this encounter
--- OUTSIDE RECORDS SUMMARY | 2024-06-14 15:33 | XMS_ITS | Encounter Summary ---
Author Organization [facility] [place] [address] Care Team Providers Care Rn Examiner Name Role Phone Marcio Carranza MD Primary Care Provider [phone] Reason for Visit * Reason Comments Medication Refill Encounter Details Date Type Department Care Team (Late st Contact Info) Description 12/11/2016 [place] [phone] Albert Saenz MD [facility] [place] [address] Ankylosing spondylitis of cervical region Social History [...] 2:00 PM EDT Appointment Non-Invasive [place] [address] Luis Alfredo Velazquez MD [facility] [place] [address] 07/02/2024 4:00 PM EDT Office Visit Cardiology at [address] Mars Green PA [facility] [place] [address] 07/02/2024 4:40 PM EDT Office Visit Cardiology at [place] [address] Luis Alfredo Velazquez MD [facility] [place] [address] 07/18/2024 9:00 AM EST Hospital Encounter Non-Invasive Cardiology Lab [place] [address] Arrived 07/27/2024 3:30 PM EST Office Visit Rheumatology at [place] [address] Gabe Fong MD [facility] [place] [address] 12/07/2024 2:30 PM EDT TH Visit (TeleHealth) Gastroenterology at [address] Rosemarie Morrow APRN [facility] [place] [address] documented as of this encounter Visit Diagnoses Diagnosis Ankylosing spondylitis of cervical region Ankylosing spondylitis documented in this encounter Care Teams Rn Examiner Relationship Specialty Start Date End Date Marcio Carranza MD [address] [place] [address] PCP - General 08/07/10 11/10/17 documented as of this encounter
--- OUTSIDE RECORDS SUMMARY | 2024-06-14 15:33 | XMS_ITS | Encounter Summary ---
Author Organization [facility] [place] [address] Care Team Providers Care Commercial Field Inspector Name Role Phone Marcio Devlin DO Primary Care Provider [phone] Encounter Details Date Type Department Care Team (Late st Contact Info) Description 11/11/2017 3:30 PM EST Office [place] [phone] Nico Campbell [facility] [place] [address] Ankylosing spondylitis, unspecified site of spine (Primary [...] current medication regimen is Humira 40 mg [id number] and Sulfasalazine 500mg BID-both of which she [...] Dr. Nico Campbell. Please refer to Dr. Campblel's clinic note for details. In brief, the [...] 2:00 PM EDT Appointment Non-[place]vasive [place] [phone] Luis Alfredo Velazquez MD [facility] [place] [address] 07/02/2024 4:00 PM EDT Office Visit Cardiology at [address] [place] [facility] [place] [address] 07/02/2024 4:40 PM EDT Office Visit Cardiology at [address] Luis Alfredo Velazquez MD [facility] [place] [address] 07/18/2024 9:00 AM EST Hospital Encounter Non-Invasive Cardiology Lab [place] [address] Arrived 07/27/2024 3:30 PM EST Office Visit Rheumatology at [place] [address] Gabe Fong MD [facility] [place] [address] 12/07/2024 2:30 PM EDT TH Visit (TeleHealth) Gastroenterology at [place] [address] Rosemarie Morrow, SKIP [facility] [place] [address] documented as of this encounter Procedures Procedure Name Priority Date/Time Associated Diagnosis Comments HEMOGRAM Routine 11/11/2017 4:11 PM EST Ankylosing spondylitis, unspecified site of spine DIFFERENTIAL, AUTOMATED Routine 11/11/2017 4:11 PM EST Ankylosing spondylitis, unspecified site of spine CBC (WITH DIFF) Routine 11/11/2017 4:11 PM EST Ankylosing spondylitis, unspecified site of spine COMPREHENSIVE METABOLIC PANEL Routine 11/11/2017 4:11 PM EST Ankylosing spondylitis, unspecified site of spine documented in this encounter Results * (ABNORMAL) Differential, Automated (11/11/2017 4:11 PM EST) Neutrophil % 48.1 % [facility] Neutrophil Absolute 4.20 1.70 - 6.10 x10(3)/ L [facility] Lymph % 38.8 % [facility] Lymphocytes Abs 3.4(H) 0.9 - 3.2 x10(3)/[facility] Monocyte % 10.3 % [facility] Monocyte Abs 0.9 0.3 - 0.9 x10(3)/[facility] Eos % 1.9 % [facility] Eosinophils Abs 0.2 0.0 - 0.4 x10(3)/[facility] Basophil % 0.6 % [facility] Baso Absolute 0.0 0.0 - 0.1 x10(3)/[facility] Immature Gran % 0.30 % [facility] Comment: Immature granulocytes(IG's)percentage and absolute count will include metamyelocytes, myelocytes, and promyelocytes. Blood smears from CBCs yielding IG's will be scanned manually for concordance. If this scan disagrees with the automated IG or if promyelocytes are noted, a manual differential will be performed. Immature Gran Absolute 0.03 0.00 - 0.04 x10(3)/mc L [facility] Blood specimen (specimen) 11/11/2017 4:11 PM EST 11/11/2017 4:32 PM EST Narrative Resulting Agency Comment Spec In Lab Nico Campbell DO HEMATOLOGY ORDERABLE S [facility] [place] [address] * (ABNORMAL) Hemogram (11/11/2017 4:11 PM EST) White Blood Cell 8.7 4.0 - 9.5 x10(3)/[facility] Red Blood Cell 5.25(H) 4.00 - 5.21 x10(6)/ L [facility] Hemoglobin 16.5(H) 11.7 - 15.5 gm/dL [facility] Hematocrit 47.4(H) 35.7 - 45.8 % [facility] Mean Cell Volume 90.3 82.6 - 94.4 fL [facility] Mean Cell Hemoglobin 31.4 27.1 - 32.0 pg [facility] Mean Cell Hemoglobin Concentration 34.8 31.7 - 35.0 gm/dL [facility] Platelet 193 145 - 357 x10(3)/[facility] RDW Standard Deviation 42.3 37.0 - 46.0 [facility]ATORY RDW coefficient of variation 13.0 11.5 - 14.1 % [facility] Mean Platelet Volume 11.2 7.6 - 12.9 fL [facility] NRBC% auto 0.0 % [facility] NRBC Absolute 0.000 0.000 - 0.000 x10(3)/[facility] Blood specimen (specimen) 11/11/2017 4:11 PM EST 11/11/2017 4:32 PM EST Narrative Resulting Agency Comment Spec In Lab Nico Campbell DO HEMATOLOGY ORDERABLE S [facility] [place] [address] * (ABNORMAL) Comprehensive metabolic panel (non-fasting) (11/11/2017 4:11 PM EST) Glucose 86 65 - 199 mg/dL [facility] Comment:Diabetes: >=200 mg/d L plus symptoms Blood Urea Nitrogen 15 8 - 18 mg/dL [facility] Creatinine 0.81 0.70 - 1.20 mg/dL [facility] Sodium 144 135 - 145 mmol/L [facility] Potassium 3.9 3.5 - 5.0 mmol/L [facility] Comment: Please note: ??Patients with WBC >100,000 may have falsely elevated Potassium levels. ??For accurate Potassium quantification in these patients send serum separator tube (gold top) for subsequent determinations. ??Contact the Clinical Chemistry Laboratory if there are any questions. Chloride 100 98 - 107 mmol/L [facility] Carbon Dioxide 30 22 - 31 mmol/L [facility] Anion Gap 14 5 - 15 mmol/L [facility] Calcium 9.7 8.5 - 10.5 mg/dL [facility] Protein, Total 7.5 6.1 - 8.0 gm/dL [facility] Albumin 4.2 3.2 - 5.2 gm/dL [facility] Aspartate Aminotransferase 43(H) 0 - 30 unit/L [facility] Alanine Aminotransferase 57(H) 0 - 30 unit/L [facility] Alkaline Phosphatase 94 40 - 104 unit/L [facility] Bilirubin, Total 0.3 0.2 - 1.3 mg/dL [facility] Est Glomerular Filtration Rate >60 >=60 [facility] Comment: The reported eGFR should be multiplied by 1.2 for patients. The MDRD is not an appropriate measure of renal function for patients with body mass extremes or in patients with acute kidney failure. http://[employer]mi[employer].Craftistas/DHnkdep http://[employer].C[employer]istas/DHMCnkf Blood specimen (specimen) 11/11/2017 4:11 PM EST 11/11/2017 4:32 PM EST Narrative Resulting Agency Comment Spec In Lab Truong Nick MD CHEMISTRY [place] [address] documented in this encounter Visit Diagnoses Diagnosis Ankylosing spondylitis, unspecified site of spine- Primary documented in this encounter Care Teams Commercial Field Inspector Relationship Specialty Start Date End Date Marcio Devlin DO [address] [place] [address] PCP - General Family Medicine 11/11/17 documented as of this encounter
--- OUTSIDE RECORDS SUMMARY | 2024-06-14 15:33 | XMS_ITS | Encounter Summary ---
Author Organization [facility] [place] [address] Care Team Providers Care Lithopress Operator Name Role Phone Marcio Carranza MD Primary Care Provider [phone] Encounter Details Date Type Department Care Team (Late st Contact Info) Description 01/02/2017 1:45 PM EDT Office [place] [phone] Albert Saenz MD [facility] [place] [address] Spondyloarthritis; Ankylosing spondylitis of cervical region Social [...] 2:00 PM EDT Appointment Non-[place] [phone] Luis Alfredo Velazquez MD [facility] [place] [address] 07/02/2024 4:00 PM EDT Office Visit Cardiology at [place] [phone] [place] [facility] [place] [address] 07/02/2024 4:40 PM EDT Office Visit Cardiology at [place] [phone] Luis Alfredo Velazquez MD [facility] [place] [address] 07/18/2024 9:00 AM EST Hospital Encounter Non-[place]vasive [place] [address] Arrived 07/27/2024 3:30 PM EST Office Visit Rheumatology at [address] Gabe Fong MD [facility] [place] [address] 12/07/2024 2:30 PM EDT TH Visit (TeleHealth) Gastroenterology at [place] [phone] Rosemarie Morrow APRN [facility] [place] [address] documented as of this encounter Procedures Procedure [...] spondylitis of cervical region COMPREHENSIVE METABOLIC PANEL Routine 01/02/2017 2:31 PM EDT Spondyloarthritis Ankylosing spondylitis of cervical region documented in this encounter Results * (ABNORMAL) Differential, Automated (01/02/2017 2:31 PM EDT) Neutrophil % 46.5 % [facility] Neutrophil Absolute 3.93 1.70 - 6.10 x10(3)/mc L [facility] Lymph % 40.1 % [facility] Lymphocytes Abs 3.4(H) 0.9 - 3.2 x10(3)/mc L [facility] Monocyte % 11.1 % [facility] Monocyte Abs 0.9 0.3 - 0.9 x10(3)/ L [facility] Eos % 1.3 % [facility] Eosinophils Abs 0.1 0.0 - 0.4 x10(3)/ L [facility] Basophil % 0.5 % [facility] Baso Absolute 0.0 0.0 - 0.1 x10(3)/mc L [facility] Immature Gran % 0.50 % [facility] Comment: Immature granulocytes(IG's)percentage and absolute count will include metamyelocytes, myelocytes, and promyelocytes. Blood smears from CBCs yielding IG's will be scanned manually for concordance. If this scan disagrees with the automated IG or if promyelocytes are noted, a manual differential will be performed. Immature Gran Absolute 0.04 0.00 - 0.04 x10(3)/mc L [facility] Blood specimen (specimen) 01/02/2017 2:31 PM EDT 01/02/2017 2:36 PM EDT Narrative Resulting Agency Comment Spec In Lab [place] Sarkar II, DO HEMATOLOGY ORDER EDUAR [facility] [place] [address] * Hemogram (01/02/2017 2:31 PM EDT) White Blood Cell 8.4 4.0 - 9.5 x10(3)/[facility] LAB[facility] Red Blood Cell 4.91 4.00 - 5.21 x10(6)/[facility] Hemoglobin 15.5 11.7 - 15.5 gm/dL [facility] Hematocrit 44.7 35.7 - 45.8 % [facility] Mean Cell Volume 91.0 82.6 - 94.4 fL [facility] Mean Cell Hemoglobin 31.6 27.1 - 32.0 pg [facility] Mean Cell Hemoglobin Concentration 34.7 31.7 - 35.0 gm/dL [facility] Platelet 260 145 - 357 x10(3)/[facility] RDW Standard Deviation 41.6 37.0 - 46.0 [facility] RDW coefficient of variation 12.6 11.5 - 14.1 % [facility] Mean Platelet Volume 10.6 7.6 - 12.9 fL [facility] NRBC% auto 0.0 % [facility] NRBC Absolute 0.000 0.000 - 0.000 x10(3)/[facility] Blood specimen (specimen) 01/02/2017 2:31 PM EDT 01/02/2017 2:36 PM EDT Narrative Resulting Agency Comment Spec In Lab [place] Sarkar II, HEMATOLOGY ORDER EDUAR [facility] [place] [address] * (ABNORMAL) CRP, acute inflammation (01/02/2017 2:31 PM EDT) C-Reactive Protein 5.2(H) <=4.9 mg/L [facility] Blood specimen (specimen) 01/02/2017 2:31 PM EDT 01/02/2017 2:36 PM EDT Narrative Resulting Agency Comment Spec In Lab [place] Sarkar II, DO CHEMISTRY ORDERA DARLEEN [facility] [place] [address] * (ABNORMAL) Comprehensive metabolic panel (non-fasting) (01/02/2017 2:31 PM EDT) Glucose 117 65 - 199 mg/dL [facility] Comment:Diabetes: >=200 mg/d L plus symptoms Blood Urea Nitrogen 14 8 - 18 mg/dL [facility] Creatinine 0.68(L) 0.70 - 1.20 mg/dL [facility] Comment: Please note that the pediatric reference intervals supplied above were not validated at [facility]. Results from pediatric patients should be interpreted in conjunction to the patient's age, height and muscle mass. Sodium 142 135 - 145 mmol/L [facility] Potassium 3.9 3.5 - 5.0 mmol/L [facility] Comment: Please note: ??Patients with WBC >100,000 may have falsely elevated Potassium levels. ??For accurate Potassium quantification in these patients send serum separator tube (gold top) for subsequent determinations. ??Contact the Clinical Chemistry Laboratory if there are any questions. Chloride 102 98 - 107 mmol/L [facility] Carbon Dioxide 30 22 - 31 mmol/L [facility] Anion Gap 10 5 - 15 mmol/L [facility] Calcium 9.5 8.5 - 10.5 mg/dL [facility] Protein, Total 7.4 6.1 - 8.0 gm/dL [facility] Albumin 4.0 3.2 - 5.2 gm/dL [facility] Aspartate Aminotransferase 31(H) 0 - 30 unit/L [facility] Alanine Aminotransferase 34(H) 0 - 30 unit/L [facility] Alkaline Phosphatase 82 40 - 104 unit/L [facility] Bilirubin, Total 0.3 0.2 - 1.3 mg/dL [facility] Bilirubin, Direct 0.1 0.0 - 0.3 mg/dL [facility] Est Glomerular Filtration Rate >60 >=60 [facility] Comment: This estimated GFR (eGFR) [...] the following links into your internet browser. http://[email or web address] [email or web address] Blood specimen (specimen) 01/02/2017 2:31 PM EDT 01/02/2017 2:36 PM EDT Narrative Resulting Agency Comment Spec In Lab [place] Noble Mecchelllloyd II, DO CHEMISTRY ORDERA BLES [facility] [place] [address] documented in this encounter Visit Diagnoses Diagnosis Spondyloarthritis Spondylosis of unspecified site without mention of myelopathy Ankylosing spondylitis of cervical region Ankylosing spondylitis documented in this encounter Care Teams Lithopress Operator Relationship Specialty Start Date End Date Marcio Carranza MD [address] [place] [address] PCP - General 08/07/10 11/10/17 documented as of this encounter
--- OUTSIDE RECORDS SUMMARY | 2024-06-14 15:33 | XMS_ITS | Encounter Summary ---
Author Organization [facility] [place] [address] Care Team Providers Care Polarity Tester Name Role Phone Marcio Devlin DO Primary Care Provider [phone] Encounter Details Date Type Department Care Team (Latest Contact Info) Description 02/24/2018 2:30 PM EDT Laboratory [place]ment [place] [address] Uterovaginal prolapse, incomplete; Urinary, incontinence, [...] 2:00 PM EDT Appointment Non-[place] [address] Luis Alfredo Velazquez MD [facility] [place] [address] 07/02/2024 4:00 PM EDT Office Visit Cardiology at [place] [phone] [place] [facility] [address] 07/02/2024 4:40 PM EDT Office Visit Cardiology at [address] [phone] Luis Alfredo Velazquez MD [facility] [place] [address] 07/18/2024 9:00 AM EST Hospital Encounter Non-[place] [address] Arrived 07/27/2024 3:30 PM EST Office Visit Rheumatology at [place] [phone] Gabe Fong MD [facility] [place] [address] 12/07/2024 2:30 PM EDT TH Visit (TeleHealth) [place] [address] Rosemarie Morrow APRN [facility] [place] [address] documented as of this encounter Procedures Procedure [...] Urinary, incontinence, stress female COMPREHENSIVE METABOLIC PANEL Routine 02/24/2018 3:03 PM EDT documented in this encounter Results * (ABNORMAL) Comprehensive metabolic panel (non-fasting) (02/24/2018 3:03 PM EDT) Pathologist [facility] Glucose 89 65 - 199 mg/dL [facility] Comment:Diabetes: >=200 mg/d L plus symptoms Blood Urea Nitrogen 20(H) 8 - 18 mg/dL [facility] Creatinine 0.92 0.70 - 1.20 mg/dL [facility] Sodium 146(H) 135 - 145 mmol/L [facility] Potassium 3.7 3.5 - 5.0 mmol/L [facility] Comment: Please note: ??Patients with WBC >100,000 may have falsely elevated Potassium levels. ??For accurate Potassium quantification in these patients send serum separator tube (gold top) for subsequent determinations. ??Contact the Clinical Chemistry Laboratory if there are any questions. Chloride 103 98 - 107 mmol/L [facility] Carbon Dioxide 29 22 - 31 mmol/L [facility] Anion Gap 14 5 - 15 mmol/L [facility] Calcium 9.9 8.5 - 10.5 mg/dL [facility] Protein, Total 7.7 6.1 - 8.0 gm/dL [facility] Albumin 4.1 3.2 - 5.2 gm/dL [facility] Aspartate Aminotransferase 36(H) 0 - 30 unit/L [facility] Alanine Aminotransferase 48(H) 0 - 30 unit/L [facility] Alkaline Phosphatase 91 40 - 104 unit/L [facility] Bilirubin, Total 0.3 0.2 - 1.3 mg/dL [facility] Est Glomerular Filtration Rate 70 >=60 mL/min/1. 73 m?? [facility] Comment: The eGFR was calculated using the CKD-EPI equation. As with all creatinine based estimates of kidney function, eGFR values calculated with the CKD-EPI equation are not accurate in patients with acute kidney failure, extremes of body mass or the acutely ill. http://[employer] Recoverynkdep http://[employer]/[facility] ALVAnkf eGFR 81 >=60 mL/min/1. 73 m?? [facility] Comment: The eGFR was calculated using the CKD-EPI equation. As with all creatinine based estimates of kidney function, eGFR values calculated with the CKD-EPI equation are not accurate in patients with acute kidney failure, extremes of body mass or the acutely ill. http://[employer]/DHnkdep http://[employer]/DHMCnkf Blood specimen (specimen) Venous Draw / Unknown 02/24/2018 3:03 PM EDT 02/24/2018 3:24 PM EDT Narrative Resulting Agency Comment Spec In Lab Nico Campbell DO CHEMISTRY ORDERABLES [facility] [place] [address] * ABORH Recheck Status (02/24/2018 3:03 PM EDT) ABORH Type Recheck Completed [facility] Blood specimen (specimen) 02/24/2018 3:03 PM EDT 02/24/2018 3:09 PM EDT Narrative Resulting Agency Comment Spec In Lab Liang Fong MD BLOOD BANK LAB ORDER EDUAR [facility] [place] [address] * (ABNORMAL) Differential, Automated (02/24/2018 3:03 PM EDT) Neutrophil % 46.4 % [facility] Neutrophil Absolute 4.08 1.70 - 6.10 x10(3)/ L [facility] Lymph % 42.1 % [facility] Lymphocytes Abs 3.7(H) 0.9 - 3.2 x10(3)/ L [facility] Monocyte % 9.4 % [facility] Monocyte Abs 0.8 0.3 - 0.9 x10(3)/[facility] Eos % 1.3 % [facility] Eosinophils Abs 0.1 0.0 - 0.4 x10(3)/[facility] Basophil % 0.3 % [facility] Baso Absolute 0.0 0.0 - 0.1 x10(3)/ L [facility] Immature Gran % 0.50 % [facility] Comment: Immature granulocytes(IG's)percentage and absolute count will include metamyelocytes, myelocytes, and promyelocytes. Blood smears from CBCs yielding IG's will be scanned manually for concordance. If this scan disagrees with the automated IG or if promyelocytes are noted, a manual differential will be performed. Immature Gran Absolute 0.04 0.00 - 0.04 x10(3)/ L [facility] Blood specimen (specimen) 02/24/2018 3:03 PM EDT 02/24/2018 3:15 PM EDT Narrative Resulting Agency Comment Spec In Lab Liang Fong MD HEMATOLOGY ORDERABLE S [facility] [place] [address] * (ABNORMAL) Hemogram (02/24/2018 3:03 PM EDT) [facility] White Blood Cell 8.8 4.0 - 9.5 x10(3)/ L [facility] Red Blood Cell 5.01 4.00 - 5.21 x10(6)/[facility] Hemoglobin 15.5 11.7 - 15.5 gm/dL [facility] Hematocrit 46.2(H) 35.7 - 45.8 % [facility] Mean Cell Volume 92.2 82.6 - 94.4 fL [facility] Mean Cell Hemoglobin 30.9 27.1 - 32.0 pg [facility] Mean Cell Hemoglobin Concentration 33.5 31.7 - 35.0 gm/dL [facility] Platelet 204 145 - 357 x10(3)/[facility] RDW Standard Deviation 43.5 37.0 - 46.0 [facility] RDW coefficient of variation 12.9 11.5 - 14.1 % [facility] Mean Platelet Volume 10.8 7.6 - 12.9 fL [facility] NRBC% auto 0.0 % [facility] NRBC Absolute 0.000 0.000 - 0.000 x10(3)/[facility] Blood specimen (specimen) 02/24/2018 3:03 PM EDT 02/24/2018 3:15 PM EDT Narrative Resulting Agency Comment Spec In Lab Liang Fong MD HEMATOLOGY ORDERABLE S [facility] [place] [address] * Antibody screen (02/24/2018 3:03 PM EDT) [facility] Ab Screen Interp Negative [facility] Expires at [id number] on: 03/13/2018 [facility] Comment:Corrected from 03/14 12:00 [Unknown] on 02/26/18 08:23 by Eric Lobo Blood specimen (specimen) 02/24/2018 3:03 PM EDT 02/24/2018 3:09 PM EDT Narrative Resulting Agency Comment Spec In Lab Liang Fong MD BLOOD BANK LAB ORDER EDUAR [facility] [place] [address] * ABO/Rh Typing (02/24/2018 3:03 PM EDT) ABORH Type AB Neg [facility] Blood specimen (specimen) 02/24/2018 3:03 PM EDT 02/24/2018 3:09 PM EDT Narrative Resulting Agency Comment Spec In Lab Liang Fong MD BLOOD BANK LAB ORDER EDUAR [facility] [place] [address] * Creatinine (02/24/2018 3:03 PM EDT) Creatinine 0.92 0.70 - 1.20 mg/dL [facility] Est Glomerular Filtration Rate 70 >=60 mL/min/1.7 3 m?? [facility] Comment: The eGFR was calculated using the CKD-EPI equation. As with all creatinine based estimates of kidney function, eGFR values calculated with the CKD-EPI equation are not accurate in patients with acute kidney failure, extremes of body mass or the acutely ill. http://[employer]/DHnkdep http://Sumoing/DHMCnkf eGFR 81 >=60 mL/min/1.7 3 m?? [facility] Comment: The eGFR was calculated using the CKD-EPI equation. As with all creatinine based estimates of kidney function, eGFR values calculated with the CKD-EPI equation are not accurate in patients with acute kidney failure, extremes of body mass or the acutely ill. http://Sumoing/DHnkdep http://[employer]/DHMCnkf Blood specimen (specimen) 02/24/2018 3:03 PM EDT 02/24/2018 3:15 PM EDT Narrative Resulting Agency Comment Spec In Lab Liang Fong MD CHEMISTRY ORDERABLES [facility] [place] [place] [address] documented in this encounter Visit Diagnoses Diagnosis Uterovaginal prolapse, incomplete Urinary, incontinence, stress female Female stress incontinence documented in this encounter Care Teams Polarity Tester Relationship Specialty Start Date End Date Marcio Devlin DO [address] [place] [address] PCP - General Family Medicine 11/11/17 documented as of this encounter
--- OUTSIDE RECORDS SUMMARY | 2024-06-14 15:33 | XMS_ITS | Encounter Summary ---
Author Organization Formerly [facility], [facility] [place] [address] Care Team Providers Care Business Functional Analyst Name Role Phone Marcio Carranza MD Primary Care Provider [phone] [phone] Encounter Details Date Type Department Care Team (Latest Contact Info) Description 03/04/2017 7:37 AM EDT - 03/04/2017 11:00 AM EDT Hospital Encounter [place] [phone] Raúl Austin MD [facility] [place] [address] Discharge Disposition: Home Social History Tobacco Use [...] to be checked. Friday-Friday Same Day Endo [phone]-8p Otherwise contact [phone] and ask to speak to the director of institutional giving soa integration architect Follow up care is a hernandez part [...] by mouth 2 times daily. 12/24/2012 10/07/2023 hydrochlorothiazide (HYDRODIURIL) 12.5 mg Tablet Take 12.5 mg by mouth daily. 10/22/2023 simvastatin (ZOCOR) 10 mg Tablet Take 10 mg by mouth nightly. 11/26/2023 losartan (COZAAR) 50 mg Tablet Take 100 mg by mouth daily. 11/26/2023 fluticasone (FLOVENT) 110 mcg/Actuation inhaler Inhale 1-2 puffs into the lungs daily. 02/21/2011 10/07/2023 fish oil-omega-3 fatty acids 1,000 mg Capsule Take 1 g by mouth daily. 02/23/2019 Adalimumab (HUMIRA PEN) 40 mg/0.8 mL Pen Injector KitIndications:Ankyl osing spondylitis of cervical region Inject 0.8 mLs subcutaneously every 14 days. 2 kit 10 01/02/2017 11/11/2017 ASPIRIN ORAL Take 365 mg by mouth nightly. 02/24/2018 METOPROLOL SUCCINATE ORAL Take 100 mg by [...] Austin MD - 03/04/2017 9:36 AM EDT [facility] Operative Note Patient Name: Kim Funes : [id number] MR#: [id number] Case Date: 03/04/2017 Surgeon: Surgeon(s) and Role: [...] EDT Appointment Non-Invasive Cardiology Lab [place] [phone] Luis Alfredo Velazquez MD [facility] [place] [address] 07/02/2024 4:00 PM EDT Office Visit Cardiology at [address] [place] [facility] [place] [address] 07/02/2024 4:40 PM EDT Office Visit Cardiology at [place] [phone] Luis Alfredo Vleazquez MD [facility] [place] [address] 07/18/2024 9:00 AM EST Hospital Encounter Non-Invasive Cardiology Lab [place] [phone] Arrived 07/27/2024 3:30 PM EST Office [place] [address] Gabe Fong MD [facility] [place] [address] 12/07/2024 2:30 PM EDT TH Visit (TeleHealth) Gastroenterology at [place] [phone] Rosemarie Morrow APRN [facility] [place] [address] documented as of this encounter Procedures Procedure [...] Surgical Pathology Report (03/04/2017 11:01 AM EDT) Final Diagnosis [id number] ?Location: 4T; 09; A The signing pathologist has (i) examined [...] 4:22 PM EDT [facility] GI Biopsy 03/04/2017 11:0 1 [...] MD PATHOLOGY/CYTOLOGY O [facility] Performing Organization Address [facility] [place] [address] * Specimen to Pathology (surgical or derm) (03/04/2017 9:39 AM EDT) AP Specimen 03/04/2017 9:39 AM EDT 03/04/2017 9:39 AM EDT Narrative [facility] - 03/04/2017 9:39 AM EDT Specimen requisition ordered. ??Separate Pathology report to follow Raúl Austin MD PATHOLOGY/CYTOLOGY O [facility] Performing Organization Address [facility] [place] [place] [address] * Specimen to Pathology (surgical or derm) (03/04/2017 9:39 AM EDT) AP Specimen 03/04/2017 9:39 AM EDT 03/04/2017 9:39 AM EDT Narrative [facility] - 03/04/2017 9:39 AM EDT Specimen requisition ordered. ??Separate Pathology report to follow Raúl Austin MD PATHOLOGY/CYTOLOGY O [facility] Performing Organization Address City/[facility] Co de Phone Number [facility] [place] [address] * Specimen to Pathology (surgical or derm) (03/04/2017 9:39 AM EDT) AP Specimen 03/04/2017 9:39 AM EDT 03/04/2017 9:39 AM EDT Narrative [facility] - 03/04/2017 9:39 AM EDT Specimen requisition ordered. ??Separate Pathology report to follow Raúl Austin MD PATHOLOGY/CYTOLOGY O [facility] Performing Organization Address [facility] [place] [place] [address] * Specimen to Pathology (surgical or derm) (03/04/2017 9:39 AM EDT) AP Specimen 03/04/2017 9:39 AM EDT 03/04/2017 9:39 AM EDT Narrative [facility] - 03/04/2017 9:39 AM EDT Specimen requisition ordered. ??Separate Pathology report to follow Raúl Austin MD PATHOLOGY/CYTOLOGY O [facility] Performing Organization Address [facility] [place] [place] [address] * Specimen to Pathology (surgical or derm) (03/04/2017 9:39 AM EDT) AP Specimen 03/04/2017 9:39 AM EDT 03/04/2017 9:39 AM EDT [facility] - 03/04/2017 9:39 AM EDT Specimen requisition ordered. ??Separate Pathology report to follow Raúl Austin MD PATHOLOGY/CYTOLOGY O [facility] Performing Organization Address [facility] [place] [place] [address] * Specimen to Pathology (surgical or derm) (03/04/2017 9:39 AM EDT) AP Specimen 03/04/2017 9:39 AM EDT 03/04/2017 9:39 AM EDT [facility] - 03/04/2017 9:39 AM EDT Specimen requisition ordered. ??Separate Pathology report to follow Raúl Austin MD PATHOLOGY/CYTOLOGY O [facility] [place] [address] * COLONOSCOPY (03/04/2017 7:44 AM EDT) COLONOSCOPY [facility] Endoscopy Procedure Date: 03/04/2017 7:44 AM ? Patient Name: Kim Funes ? N: [id number] ? Date of : 1960 ? Age: 56 ? Order #: [id number] ? Instrument Name: [id number] ? Procedure: ? Colonoscopy Indications: ? High [...] preparation was evaluated using ? the BBPS (Coggon Bowel Preparation ? Scale) with scores of: [...] RN) documented in this encounter Care Teams Business Functional Analyst Relationship Specialty Start Date End Date Marcio Carranza MD [address] [facility] [place] [address] PCP - General 08/07/10 11/10/17 documented as of this encounter
--- OUTSIDE RECORDS SUMMARY | 2024-06-14 15:33 | XMS_ITS | Encounter Summary ---
Author Organization [place] [address] Care Team Providers Care Calendar Control Clerk Blood Bank Name Role Phone Marcio Carranza MD Primary Care Provider [phone] Encounter Details Date Type Department Care Team (Late st Contact Info) Description 09/27/2016 11:00 AM EST Office [place] [phone] Albert Saenz MD [facility] [place] [address] Ankylosing spondylitis Social History Tobacco Use Types [...] 2:00 PM EDT Appointment Non-Invasive [place] [address] Luis Alfredo Velazquez MD [facility] [place] [address] 07/02/2024 4:00 PM EDT Office Visit Cardiology at [place] [phone] [place] [facility] [place] [address] 07/02/2024 4:40 PM EDT Office Visit Cardiology at [place] [phone] Luis Alfredo Velazquez MD [facility] [place] [address] 07/18/2024 9:00 AM EST Hospital Encounter Non-[place] [address] Arrived 07/27/2024 3:30 PM EST Office [place] [address] Gabe Fong MD [facility] [place] [address] 12/07/2024 2:30 PM EDT TH Visit (TeleHealth) [place] [address] Rosemarie Morrow, SKIP [facility] [place] [address] documented as of this encounter [...] PM EST Ankylosing spondylitis COMPREHENSIVE METABOLIC PANEL Routine 09/27/2016 12:10 PM EST Ankylosing spondylitis documented in this encounter Results * Differential, Automated (09/27/2016 12:10 PM EST) Neutrophil % 47.3 % [facility] Neutrophil Absolute 3.79 1.70 - 6.10 x10(3)/[facility] Lymph % 38.4 % [facility] Lymphocytes Abs 3.1 0.9 - 3.2 x10(3)/[facility] Monocyte % 9.6 % [facility] Monocyte Abs 0.8 0.3 - 0.9 x10(3)/[facility] Eos % 3.6 % [facility] Eosinophils Abs 0.3 0.0 - 0.4 x10(3)/[facility] Basophil % 0.8 % [facility] Baso Absolute 0.1 0.0 - 0.1 x10(3)/[facility] Immature Gran % 0.30 % [facility] Comment: Immature granulocytes(IG's)percentage and absolute count will include metamyelocytes, myelocytes, and promyelocytes. Blood smears from CBCs yielding IG's will be scanned manually for concordance. If this scan disagrees with the automated IG or if promyelocytes are noted, a manual differential will be performed. Immature Gran Absolute 0.02 0.00 - 0.04 x10(3)/[facility] Blood specimen (specimen) 09/27/2016 12:10 PM EST 09/27/2016 12:20 PM EST Narrative Resulting Agency Comment Spec In Lab Brittani Martinez DO HEMATOLOGY ORDER EDUAR [facility] [place] [address] * (ABNORMAL) Hemogram (09/27/2016 12:10 PM EST) White Blood Cell 8.0 4.0 - 9.5 x10(3)/[facility] Red Blood Cell 5.16 4.00 - 5.21 x10(6)/[facility] Hemoglobin 15.9(H) 11.7 - 15.5 gm/dL [facility] Hematocrit 48.0(H) 35.7 - 45.8 % [facility] Mean Cell Volume 93.0 82.6 - 94.4 fL [facility] Mean Cell Hemoglobin 30.8 27.1 - 32.0 pg [facility] Mean Cell Hemoglobin Concentration 33.1 31.7 - 35.0 gm/dL [facility] Platelet 188 145 - 357 x10(3)/mc L [facility] RDW Standard Deviation 44.2 37.0 - 46.0 [facility] RDW coefficient of variation 12.9 11.5 - 14.1 % [facility] Mean Platelet Volume 10.9 7.6 - 12.9 fL [facility] NRBC% auto 0.0 % [facility] NRBC Absolute 0.000 0.000 - 0.000 x10(3)/mc L [facility] Blood specimen (specimen) 09/27/2016 12:10 PM EST 09/27/2016 12:20 PM EST Narrative Resulting Agency Comment Spec In Lab Brittani Martinez DO HEMATOLOGY ORDER EDUAR Performing Organization Address City/[facility]/ZIP Co de Phone Number [facility] [place] [address] * Cyclic Citrullinated Peptide (09/27/2016 12:10 PM EST) Cyclic Citrulline Peptide <8.0 <=17.0 unit/mL [facility] Blood specimen (specimen) 09/27/2016 12:10 PM EST 09/27/2016 12:20 PM EST Narrative Resulting Agency Comment Spec In Lab Brittani Martinez DO CHEMISTRY ORDERA BLES Performing Organization Address City/[facility]/ZIP Co de Phone Number [facility] [place] [address] * Rheumatoid factor, quant (09/27/2016 12:10 PM EST) Rheumatoid Factor <10 <=14 IU/mL [facility] Blood specimen (specimen) 09/27/2016 12:10 PM EST 09/27/2016 12:20 PM EST Narrative Resulting Agency Comment Spec In Lab Brittani Martinez DO CHEMISTRY ORDERA BLES [facility] [place] [address] * (ABNORMAL) Comprehensive metabolic panel (non-fasting) (09/27/2016 12:10 PM EST) Pathologist [facility] Glucose 113 65 - 199 mg/dL [facility] Comment:Diabetes: >=200 mg/d L plus symptoms Blood Urea Nitrogen 19(H) 8 - 18 mg/dL [facility] Creatinine 0.73 0.70 - 1.20 mg/dL [facility] Comment: Please note that the pediatric reference intervals supplied above were not validated at [facility]. Results from pediatric patients should be interpreted in conjunction to the patient's age, height and muscle mass. Sodium 143 135 - 145 mmol/L [facility] Potassium 4.1 3.5 - 5.0 mmol/L [facility] Comment: Please note: ??Patients with WBC >100,000 may have falsely elevated Potassium levels. ??For accurate Potassium quantification in these patients send serum separator tube (gold top) for subsequent determinations. ??Contact the Clinical Chemistry Laboratory if there are any questions. Chloride 102 98 - 107 mmol/L [facility] Carbon Dioxide 29 22 - 31 mmol/L [facility] Anion Gap 12 5 - 15 mmol/L [facility] Calcium 10.0 8.5 - 10.5 mg/dL [facility] Protein, Total 7.8 6.1 - 8.0 gm/dL [facility] Albumin 4.3 3.2 - 5.2 gm/dL [facility] Aspartate Aminotransferase 46(H) 0 - 30 unit/L [facility] Alanine Aminotransferase 55(H) 0 - 30 unit/L [facility] Alkaline Phosphatase 73 40 - 104 unit/L [facility] Bilirubin, Total 0.5 0.2 - 1.3 mg/dL [facility] Bilirubin, Direct 0.1 0.0 - 0.3 mg/dL [facility] Est Glomerular Filtration Rate >60 >=60 [facility] Comment: This estimated GFR (eGFR) [...] the following links into your internet browser. [email or web address] Blood specimen (specimen) 09/27/2016 12:10 PM EST 09/27/2016 12:20 PM EST Narrative Resulting Agency Comment Spec In Lab Brittani Martinez DO CHEMISTRY ORDERA [facility] [place] [address] * CRP, cardiac risk (HS CRP) (09/27/2016 12:10 PM EST) C-Reactive Protein High Sensitivity 3.3 mg/L [facility] Comment: For cardiac risk [...] 2003; 107:363-369 CRP Cardiac Risk High Risk [facility] Blood specimen (specimen) 09/27/2016 12:10 PM EST 09/27/2016 12:20 PM EST Narrative Resulting Agency Comment Spec In Lab Brittani Martinez DO CHEMISTRY ORDERA [facility] Performing Organization Address City/State/[facility] Co de Phone Number [facility] [place] [address] documented in this encounter Visit Diagnoses Diagnosis Ankylosing spondylitis documented in this encounter Care Teams Calendar Control Clerk Blood Bank Relationship Specialty Start Date End Date Marcio Carranza MD [address] [place] [address] PCP - General 08/07/10 11/10/17 documented as of this encounter
--- OUTSIDE RECORDS SUMMARY | 2024-06-14 15:33 | XMS_ITS | Encounter Summary ---
Author Organization [facility] [place] [address] Care Team Providers Care Associate Genetics Professor Name Role Phone Marcio Carranza MD Primary Care Provider [phone] Reason for Visit * Reason Onset Date Comments Medication Refill 12/03/2015 Encounter Details Date Type Department Care Team (Late st Contact Info) Description 12/04/2015 [place] [address] Albert Saenz MD [facility] [place] [address] Ankylosing spondylitis of cervical region Social History [...] Notes * Telephone Encounter - Lory Jarquin, [facility] - 12/04/2015 9:22 AM EDTFrom: Kim Funes To: Lana Castro MD Sent: 12/03/2015 8:22 PM EDT Subject: Medication Renewal Request Original authorizing provider: LANA CASTRO MD Kim Funes would like a refill of the following medications: Adalimumab (HUMIRA PEN) 40 mg/0.8 mL Pen Injector Kit [LANA CASTRO MD] Preferred pharmacy: [facility] [address] Comment: documented in this encounter Plan of Treatment Upcoming Encounters Date Type Department Care Team (Late st Contact Info) Description 07/02/2024 2:00 PM EDT Appointment Non-Invasive [place] [address] Luis Alfredo Velazquez MD [facility] [place] [address] 07/02/2024 4:00 PM EDT Office [place] [address] [place] [facility] [place] [address] 07/02/2024 4:40 PM EDT Office Visit Cardiology at [place] [phone] Luis Alfredo Velazquez MD [facility] [place] [address] 07/18/2024 9:00 AM EST Hospital Encounter Non-Invasive Cardiology Lab [place] [phone] Arrived 07/27/2024 3:30 PM EST Office Visit Rheumatology at [place] [phone] Gabe Fong MD [facility] [address] [place] [address] 12/07/2024 2:30 PM EDT TH Visit (TeleHealth) [place] [address] Rosemarie Morrow APRN [facility] [place] [address] documented as of this encounter Visit Diagnoses Diagnosis Ankylosing spondylitis of cervical region Ankylosing spondylitis documented in this encounter Care Teams Associate Genetics Professor Relationship Specialty Start Date End Date Marcio Carranza MD [address] [facility] [place] [address] PCP - General 08/07/10 11/10/17 documented as of this encounter
--- OUTSIDE RECORDS SUMMARY | 2024-06-14 15:33 | XMS_ITS | Encounter Summary ---
Author Organization [facility] [place] [address] Care Team Providers Care Jewel Inspector Name Role Phone Marcio Carranza MD Primary Care Provider [phone] Encounter Details Date Type Department Care Team (Late st Contact Info) Description 05/06/2017 4:15 PM EDT Office [place] [phone] Nico Campbell [facility] [place] [address] Ankylosing spondylitis, unspecified site of spine (Primary [...] current medication regimen is Humira 40 mg [id number] and Sulfasalazine 500mg BID-both of which she [...] with UC managed on Humira 40 mg [id number] and Sulfasalazine 500 mg BID, which she [...] PM EDT Appointment Non-Invasive [place] [address] Luis Alfredo Velazquez MD [facility] [place] [address] 07/02/2024 4:00 PM EDT Office Visit Cardiology at [address] [phone] Mars Green PA [facility] [place] [address] 07/02/2024 4:40 PM EDT Office Visit Cardiology at [address] [phone] Luis Alfredo Velazquez MD [facility] [place] [address] 07/18/2024 9:00 AM EST Hospital Encounter Non-Invasive Cardiology Lab [place] [phone] Arrived 07/27/2024 3:30 PM EST Office Visit Rheumatology at [place] [phone] Gabe Fong MD [facility] [place] [address] 12/07/2024 2:30 PM EDT TH Visit (TeleHealth) Gastroenterology at [place] [phone] Rosemarie Morrow APRN [facility] [place] [address] documented as of this encounter Procedures Procedure Name Priority Date/Time Associated Diagnosis Comments HEMOGRAM Routine 05/06/2017 5:03 PM EDT Ankylosing spondylitis, unspecified site of spine DIFFERENTIAL, AUTOMATED Routine 05/06/2017 5:03 PM EDT Ankylosing spondylitis, unspecified site of spine CBC (WITH DIFF) Routine 05/06/2017 5:03 PM EDT Ankylosing spondylitis, unspecified site of spine COMPREHENSIVE METABOLIC PANEL Routine 05/06/2017 5:03 PM EDT Ankylosing spondylitis, unspecified site of spine documented in this encounter Results * Differential, Automated (05/06/2017 5:03 PM EDT) Pathologist [facility] Neutrophil % 47.2 % [facility] Neutrophil Absolute 3.79 1.70 - 6.10 x10(3)/[facility] LAB[facility] Lymph % 39.6 % [facility] Lymphocytes Abs 3.2 0.9 - 3.2 x10(3)/[facility] LAB[facility] Monocyte % 10.4 % [facility] Monocyte Abs 0.8 0.3 - 0.9 x10(3)/[facility] LABORATORY Eos % 1.9 % [facility] Eosinophils Abs 0.2 0.0 - 0.4 x10(3)/[facility] LABORATORY Basophil % 0.5 % [facility] Baso Absolute 0.0 0.0 - 0.1 x10(3)/[facility] LABOR[facility]ORY Immature Gran % 0.40 % [facility] Comment: Immature granulocytes(IG's)percentage and absolute count will include metamyelocytes, myelocytes, and promyelocytes. Blood smears from CBCs yielding IG's will be scanned manually for concordance. If this scan disagrees with the automated IG or if promyelocytes are noted, a manual differential will be performed. Immature Gran Absolute 0.03 0.00 - 0.04 x10(3)/[facility] LABOR[facility]ORY Blood specimen (specimen) 05/06/2017 5:03 PM EDT 05/06/2017 5:10 PM EDT Narrative Resulting Agency Comment Spec In Lab Kasey Retana MD HEMATOLOGY ORDERABLE S [facility] [place] [address] * (ABNORMAL) Hemogram (05/06/2017 5:03 PM EDT) Pathologist [facility] White Blood Cell 8.0 4.0 - 9.5 x10(3)/ L [facility] Red Blood Cell 5.03 4.00 - 5.21 x10(6)/ L [facility] Hemoglobin 15.4 11.7 - 15.5 gm/dL [facility] Hematocrit 46.2(H) 35.7 - 45.8 % [facility] Mean Cell Volume 91.8 82.6 - 94.4 fL [facility] Mean Cell Hemoglobin 30.6 27.1 - 32.0 pg [facility] Mean Cell Hemoglobin Concentration 33.3 31.7 - 35.0 gm/dL [facility] Platelet 204 145 - 357 x10(3)/[facility] LABORATORY RDW Standard Deviation 44.7 37.0 - 46.0 fL [facility] RDW coefficient of variation 13.2 11.5 - 14.1 % [facility] Mean Platelet Volume 11.0 7.6 - 12.9 fL [facility] NRBC% auto 0.0 % [facility] NRBC Absolute 0.000 0.000 - 0.000 x10(3)/[facility] LABORATORY Blood specimen (specimen) 05/06/2017 5:03 PM EDT 05/06/2017 5:10 PM EDT Narrative Resulting Agency Comment Spec In Lab Kasey Retana MD HEMATOLOGY ORDERABLE S [facility] [place] [address] * (ABNORMAL) Comprehensive metabolic panel (non-fasting) (05/06/2017 5:03 PM EDT) Glucose 164 65 - 199 mg/dL [facility] Comment:Diabetes: >=200 mg/d L plus symptoms Blood Urea Nitrogen 15 8 - 18 mg/dL [facility] Creatinine 0.75 0.70 - 1.20 mg/dL [facility] Comment: Please note that the pediatric reference intervals supplied above were not validated at [facility]. Results from pediatric patients should be interpreted in conjunction to the patient's age, height and muscle mass. Sodium 142 135 - 145 mmol/L [facility] Potassium 4.0 3.5 - 5.0 mmol/L [facility] Comment: Please note: ??Patients with WBC >100,000 may have falsely elevated Potassium levels. ??For accurate Potassium quantification in these patients send serum separator tube (gold top) for subsequent determinations. ??Contact the Clinical Chemistry Laboratory if there are any questions. Chloride 102 98 - 107 mmol/L [facility] Carbon Dioxide 27 22 - 31 mmol/L [facility] Anion Gap 13 5 - 15 mmol/L [facility] Calcium 9.9 8.5 - 10.5 mg/dL [facility] Protein, Total 7.6 6.1 - 8.0 gm/dL [facility] Albumin 4.1 3.2 - 5.2 gm/dL [facility] Aspartate Aminotransferase 37(H) 0 - 30 unit/L [facility] Alanine Aminotransferase 42(H) 0 - 30 unit/L [facility] Alkaline Phosphatase 89 40 - 104 unit/L [facility] Bilirubin, Total 0.3 0.2 - 1.3 mg/dL [facility] Est Glomerular Filtration Rate >60 [...] the following links into your internet browser. http://[employer]/DHnkdep [email or web address] Blood specimen (specimen) 05/06/2017 5:03 PM EDT 05/06/2017 5:10 PM EDT Narrative Resulting Agency Comment Spec In Lab Kasey Retana MD CHEMISTRY ORDERABLES [facility] [place] [place] [address] documented in this encounter Visit Diagnoses Diagnosis Ankylosing spondylitis, unspecified site of spine- Primary documented in this encounter Care Teams Jewel Inspector Relationship Specialty Start Date End Date Marcio Carranza MD [address] [place] [address] PCP - General 08/07/10 11/10/17 documented as of this encounter
--- OUTSIDE RECORDS SUMMARY | 2024-06-14 15:33 | XMS_ITS | Encounter Summary ---
Author Organization [facility] Address [facility] [place] [address] Care Team Providers Care Lockstitch Sleeve Setter Name Role Phone Marcio Devlin DO Primary Care Provider [phone] Reason for Visit * Reason Onset Date Comments Medication Refill 11/20/2017 Encounter Details Date Type Department Care Team (Late st Contact Info) Description 11/20/2017 [place] [phone] Mark Good, RN Ankylosing spondylitis of cervical [...] 2:00 PM EDT Appointment Non-Invasive [place] [address] Luis Alfredo Velazquez MD [facility] [place] [address] 07/02/2024 4:00 PM EDT Office Visit Cardiology at [address] [place] PA [facility] [place] [address] 07/02/2024 4:40 PM EDT Office Visit Cardiology at [place] [address] Luis Alfredo Velazquez MD [facility] [place] [address] 07/18/2024 9:00 AM EST Hospital Encounter Non-Invasive Cardiology Lab [place] [phone] Arrived 07/27/2024 3:30 PM EST Office Visit Rheumatology at [place] [address] Gabe Fong MD [facility] [place] [address] 12/07/2024 2:30 PM EDT TH Visit (TeleHealth) Gastroenterology at [place] [address] Rosemarie Morrow, SKIP [facility] [place] [address] documented as of this encounter Visit Diagnoses Diagnosis Ankylosing spondylitis of cervical region Ankylosing spondylitis documented in this encounter Care Teams Lockstitch Sleeve Setter Relationship Specialty Start Date End Date Marcio Devlin DO [address] [place] [address] PCP - General Family Medicine 11/11/17 documented as of this encounter
--- OUTSIDE RECORDS SUMMARY | 2024-06-14 15:33 | XMS_ITS | Encounter Summary ---
Author Organization [facility] [place] [address] Care Team Providers Care Medical Affairs Director Name Role Phone Marcio Carranza MD Primary Care Provider [phone] Reason for Visit * Reason Onset Date Comments Medication Refill 05/30/2016 Encounter Details Date Type Department Care Team (Late st Contact Info) Description 05/31/2016 Refill [place] [phone] Sindi Guzmán RN Ankylosing spondylitis of cervical [...] Injector Kit [AYDEN NAVARRO MD] Preferred pharmacy: [facility] [address] Comment: documented in this encounter Plan of Treatment Upcoming Encounters Date Type Department Care Team (Late st Contact Info) Description 07/02/2024 2:00 PM EDT Appointment Non-[place] [phone] Luis Alfredo Velazquez MD [facility] [place] [address] 07/02/2024 4:00 PM EDT Office Visit Cardiology at [place] [phone] Mars Green PA [facility] [place] [address] 07/02/2024 4:40 PM EDT Office Visit Cardiology at [address] [phone] Luis Alfredo Velazquez MD [facility] [place] [address] 07/18/2024 9:00 AM EST Hospital Encounter Non-[place] [phone] Arrived 07/27/2024 3:30 PM EST Office Visit [place] [phone] Gabe Fong MD [facility] [place] [address] 12/07/2024 2:30 PM EDT TH Visit (TeleHealth) G[place] [address] Rosemarie Morrow APRN [facility] [place] [address] documented as of this encounter Visit Diagnoses Diagnosis Ankylosing spondylitis of cervical region Ankylosing spondylitis documented in this encounter Care Teams Medical Affairs Director Relationship Specialty Start Date End Date Marcio Carranza MD [address] [place] [address] PCP - General 08/07/10 11/10/17 documented as of this encounter
--- OUTSIDE RECORDS SUMMARY | 2024-06-14 15:33 | XMS_ITS | Encounter Summary ---
Author Organization [facility] [place] [address] Care Team Providers Care Electrogalvanizing Machine Operator Name Role Phone Marcio Carranza MD Primary Care Provider [phone] Encounter Details Date Type Department Care Team (Late st Contact Info) Description 08/14/2017 11:00 AM EST Office [place] [phone] Nico Campbell [facility] [place] [address] Ankylosing spondylitis, unspecified site of spine (Primary [...] current medication regimen is Humira 40 mg [id number] and Sulfasalazine 500mg BID-both of which she [...] colitis related arthropathy. She was currently on [id number] in conjunction with twice daily sulfasalazine for [...] 2:00 PM EDT Appointment Non-Invasive Cardiology Lab [place] [phone] Luis Alfredo Velazquez MD [facility] [place] [place] [address] 07/02/2024 4:00 PM EDT Office Visit Cardiology at [address] [phone] Mars Green PA [facility] [place] [place] [address] 07/02/2024 4:40 PM EDT Office Visit Cardiology at [address] [phone] Luis Alfredo Velazquez MD [facility] [place] [address] 07/18/2024 9:00 AM EST Hospital Encounter Non-[place] [address] Arrived 07/27/2024 3:30 PM EST Office [place] [phone] Gabe Fong MD [facility] [place] [address] 12/07/2024 2:30 PM EDT TH Visit (TeleHealth) [place] [phone] Rosemarie Morrow APRN [facility] [place] [address] documented as of this encounter Procedures Procedure Name Priority Date/Time Associated Diagnosis Comments HEMOGRAM Routine 08/14/2017 12:06 PM EST Ankylosing spondylitis, unspecified site of spine DIFFERENTIAL, AUTOMATED Routine 08/14/2017 12:06 PM EST Ankylosing spondylitis, unspecified site of spine CBC (WITH DIFF) Routine 08/14/2017 12:06 PM EST Ankylosing spondylitis, unspecified site of spine COMPREHENSIVE METABOLIC PANEL Routine 08/14/2017 12:06 PM EST Ankylosing spondylitis, unspecified site of spine documented in this encounter Results * Differential, Automated (08/14/2017 12:06 PM EST) Neutrophil % 41.8 % [facility] Neutrophil Absolute 2.90 1.70 - 6.10 x10(3)/[facility] LABORATORY Lymph % 46.0 % [facility] Lymphocytes Abs 3.2 0.9 - 3.2 x10(3)/[facility] LABORATORY Monocyte % 9.0 % [facility] Monocyte Abs 0.6 0.3 - 0.9 x10(3)/[facility] LABORATORY Eos % 2.2 % [facility] Eosinophils Abs 0.2 0.0 - 0.4 x10(3)/[facility] LABORATORY Basophil % 0.7 % [facility] Baso Absolute 0.0 0.0 - 0.1 x10(3)/[facility] LABORATORY Immature Gran % 0.30 % [facility] Comment: Immature granulocytes(IG's)percentage and absolute count will include metamyelocytes, myelocytes, and promyelocytes. Blood smears from CBCs yielding IG's will be scanned manually for concordance. If this scan disagrees with the automated IG or if promyelocytes are noted, a manual differential will be performed. Immature Gran Absolute 0.02 0.00 - 0.04 x10(3)/[facility] LABORATORY Blood specimen (specimen) 08/14/2017 12:06 PM EST 08/14/2017 12:10 PM EST Narrative Resulting Agency Comment Spec In Lab Truong Nick MD HEMATOLOGY ORDERABLE S [facility] [place] [address] * (ABNORMAL) Hemogram (08/14/2017 12:06 PM EST) White Blood Cell 6.9 4.0 - 9.5 x10(3)/mc L [facility] Red Blood Cell 5.32(H) 4.00 - 5.21 x10(6)/mc L [facility] Hemoglobin 16.2(H) 11.7 - 15.5 gm/dL [facility] Hematocrit 49.0(H) 35.7 - 45.8 % [facility] Mean Cell Volume 92.1 82.6 - 94.4 fL [facility] Mean Cell Hemoglobin 30.5 27.1 - 32.0 pg [facility] Mean Cell Hemoglobin Concentration 33.1 31.7 - 35.0 gm/dL [facility] Platelet 196 145 - 357 x10(3)/mc L [facility] RDW Standard Deviation 43.8 37.0 - 46.0 fL [facility] RDW coefficient of variation 13.1 11.5 - 14.1 % [facility] Mean Platelet Volume 11.1 7.6 - 12.9 fL [facility] NRBC% auto 0.0 % [facility] NRBC Absolute 0.000 0.000 - 0.000 x10(3)/mc L [facility] Blood specimen (specimen) 08/14/2017 12:06 PM EST 08/14/2017 12:10 PM EST Narrative Resulting Agency Comment Spec In Lab Truong Nick MD HEMATOLOGY ORDERABLE S Performing Organization Address City/State/[facility] Co de Phone Number [facility] [place] [address] * (ABNORMAL) Comprehensive metabolic panel (non-fasting) (08/14/2017 12:06 PM EST) Glucose 107 65 - 199 mg/dL [facility] Comment:Diabetes: >=200 mg/d L plus symptoms Blood Urea Nitrogen 17 8 - 18 mg/dL [facility] Creatinine 0.81 0.70 - 1.20 mg/dL [facility] Sodium 145 135 - 145 mmol/L [facility] Potassium 4.3 3.5 - 5.0 mmol/L [facility] Comment: Please note: ??Patients with WBC >100,000 may have falsely elevated Potassium levels. ??For accurate Potassium quantification in these patients send serum separator tube (gold top) for subsequent determinations. ??Contact the Clinical Chemistry Laboratory if there are any questions. Chloride 103 98 - 107 mmol/L [facility] Carbon Dioxide 30 22 - 31 mmol/L [facility] Anion Gap 12 5 - 15 mmol/L [facility] Calcium 9.9 8.5 - 10.5 mg/dL [facility] Protein, Total 7.8 6.1 - 8.0 gm/dL [facility] Albumin 4.1 3.2 - 5.2 gm/dL [facility] Aspartate Aminotransferase 75(H) 0 - 30 unit/L [facility] Alanine Aminotransferase 84(H) 0 - 30 unit/L [facility] Alkaline Phosphatase 91 40 - 104 unit/L [facility] Bilirubin, Total 0.4 0.2 - 1.3 mg/dL [facility] Est Glomerular Filtration Rate >60 >=60 [facility] Comment: The reported eGFR should be multiplied by 1.2 for patients. The MDRD is not an appropriate measure of renal function for patients with body mass extremes or in patients with acute kidney failure. http://[employer]/DHnkdep http://[employer]/DHMCnkf Blood specimen (specimen) 08/14/2017 12:06 PM EST 08/14/2017 12:10 PM EST Narrative Resulting Agency Comment Spec In Lab Truong Nick MD CHEMISTRY ORDERABLES [facility] [place] [address] documented in this encounter Visit Diagnoses Diagnosis Ankylosing spondylitis, unspecified site of spine- Primary documented in this encounter Care Teams Electrogalvanizing Machine Operator Relationship Specialty Start Date End Date Marcio Carranza MD [address] [place] [address] PCP - General 08/07/10 11/10/17 documented as of this encounter
--- OUTSIDE RECORDS SUMMARY | 2024-06-14 15:33 | XMS_ITS | Encounter Summary ---
Author Organization [facility] [place] [address] Care Team Providers Care Digital Media Director Name Role Phone Marcio Carranza MD Primary Care Provider [phone] Encounter Details Date Type Department Care Team (Late st Contact Info) Description 03/04/2017 9:00 AM EDT - 03/04/2017 9:45 AM EDT Surgery [place] [phone] Raúl Austin MD [facility] [place] [address] COLONOSCOPY FLEXIBLE, WITH BX (WRVU 3.56) Social [...] to be checked. Friday-Friday Same Day Endo [phone]-8p Otherwise contact [phone] and ask to speak to the pattern filer senior health consultant Follow up care is a hernandez part [...] Austin MD - 03/04/2017 9:36 AM EDT [facility] Operative Note Patient Name: Kim Funes : [id number] MR#: [id number] Case Date: 03/04/2017 Surgeon: Surgeon(s) and Role: [...] 2:00 PM EDT Appointment Non-[place] [address] Luis Alfredo Velazquez MD [facility] [place] [address] 07/02/2024 4:00 PM EDT Office Visit Cardiology at [place] [phone] [place] [facility] [place] [address] 07/02/2024 4:40 PM EDT Office Visit Cardiology at [place] [phone] Luis Alfredo Velazquez MD [facility] [place] [address] 07/18/2024 9:00 AM EST Hospital Encounter Non-[place]vasive [place] [address] Arrived 07/27/2024 3:30 PM EST Office Visit Rheumatology at [place] [phone] Gabe Fong MD [facility] [place] [address] 12/07/2024 2:30 PM EDT TH Visit (TeleHealth) [place] [address] Rosemarie Morrow APRN [facility] [place] [address] (work) documented as of this encounter Procedures [...] Report (03/04/2017 11:01 AM EDT) Final Diagnosis [id number] ?Location: 4; EA09; A The signing pathologist has (i) [...] ng: (T1) ??sns 03/07/2017 4:22 PM EDT [facility] GI Biopsy 03/04/2017 11:0 [...] AM EDT Raúl Austin MD PATHOLOGY/CYTOLOGY O RDSETH Performing Organization Address City/[facility]/[place] [address] * Specimen to Pathology (surgical or derm) (03/04/2017 9:39 AM EDT) AP Specimen 03/04/2017 9:39 AM EDT 03/04/2017 9:39 AM EDT Narrative [facility] - 03/04/2017 9:39 AM EDT Specimen requisition ordered. ??Separate Pathology report to follow Raúl Austin MD PATHOLOGY/CYTOLOGY O IRMA Performing Organization Address City/[facility] [place] [address] * Specimen to Pathology (surgical or derm) (03/04/2017 9:39 AM EDT) AP Specimen 03/04/2017 9:39 AM EDT 03/04/2017 9:39 AM EDT Narrative [facility] - 03/04/2017 9:39 AM EDT Specimen requisition ordered. ??Separate Pathology report to follow Raúl Austin MD PATHOLOGY/CYTOLOGY O IRMA Performing Organization Address City/[facility]/ZIP Co de Phone Number [facility] [place] [address] * Specimen to Pathology (surgical or derm) (03/04/2017 9:39 AM EDT) AP Specimen 03/04/2017 9:39 AM EDT 03/04/2017 9:39 AM EDT Narrative [facility] - 03/04/2017 9:39 AM EDT Specimen requisition ordered. ??Separate Pathology report to follow Raúl Austin MD PATHOLOGY/CYTOLOGY O IRMA Performing Organization Address [facility] [place] [address] * Specimen to Pathology (surgical or derm) (03/04/2017 9:39 AM EDT) AP Specimen 03/04/2017 9:39 AM EDT 03/04/2017 9:39 AM EDT Narrative [facility] - 03/04/2017 9:39 AM EDT Specimen requisition ordered. ??Separate Pathology report to follow Raúl Austin MD PATHOLOGY/CYTOLOGY O IRMA Performing Organization Address [facility] [place] [address] * Specimen to Pathology (surgical or derm) (03/04/2017 9:39 AM EDT) AP Specimen 03/04/2017 9:39 AM EDT 03/04/2017 9:39 AM EDT Narrative [facility] - 03/04/2017 9:39 AM EDT Specimen requisition ordered. ??Separate Pathology report to follow Raúl Austin MD PATHOLOGY/CYTOLOGY O IRMA Performing Organization Address [facility] [place] [address] * Specimen to Pathology (surgical or derm) (03/04/2017 9:39 AM EDT) AP Specimen 03/04/2017 9:39 AM EDT 03/04/2017 9:39 AM EDT [facility] - 03/04/2017 9:39 AM EDT Specimen requisition ordered. ??Separate Pathology report to follow Raúl Austin MD PATHOLOGY/CYTOLOGY Clotilde SOLIS [facility] [place] [address] * COLONOSCOPY (03/04/2017 7:44 AM EDT) COLONOSCOPY [facility] Endoscopy Procedure Date: 03/04/2017 7:44 AM ? Patient Name: Kim Funes ? N: [id number] ? Date of : 1960 ? Age: 56 ? Order #: [id number] ? Instrument Name: [id number] ? Procedure: ? Colonoscopy Indications: ? High [...] preparation was evaluated using ? the BBPS (Bucks Bowel Preparation ? Scale) with scores of: [...] RN) documented in this encounter Care Teams Digital Media Director Relationship Specialty Start Date End Date Marcio Carranza MD [address] [facility] [place] [address] PCP - General 08/07/10 11/10/17 documented as of this encounter
--- OUTSIDE RECORDS SUMMARY | 2024-06-14 15:33 | XMS_ITS | Encounter Summary ---
Author Organization [facility] [place] [address] Care Team Providers Care Face Hardener Name Role Phone Marcio Devlin DO Primary Care Provider [phone] Encounter Details Date Type Department Care Team (Late st Contact Info) Description 02/24/2018 3:00 PM EDT [place] [address] Social History Tobacco Use Types [...] 2:00 PM EDT Appointment Non[place] [phone] Luis Alfredo Velazquez MD [facility] [place] [address] 07/02/2024 4:00 PM EDT Office Visit Cardiology at [address] [address] [place] [facility] [place] [address] 07/02/2024 4:40 PM EDT Office Visit Cardiology at [address] [address] Luis Alfredo Velazquez MD [facility] [place] [address] 07/18/2024 9:00 AM EST Hospital Encounter Non-Invasive Cardiology Lab [place] [phone] Arrived 07/27/2024 3:30 PM EST Office [place] [address] Gabe Fong MD [facility] [place] [address] 12/07/2024 2:30 PM EDT TH Visit (TeleHealth) [place] [address] Rosemarie Morrow APRN [facility] [address] documented as of this encounter Visit Diagnoses Not on filedocumented in this encounter Care Teams Face Hardener Relationship Specialty Start Date End Date Marcio Devlin DO [address] [place] [address] PCP - General Family Medicine 11/11/17 documented as of this encounter
--- OUTSIDE RECORDS SUMMARY | 2024-06-14 15:33 | XMS_ITS | Encounter Summary ---
Author Organization [facility] Address [facility] [place] [address] Care Team Providers Care Sales Technician Home Theater Name Role Phone Marcio Carranza MD Primary Care Provider [phone] Encounter Details Date Type Department Care Team (Late st Contact Info) Description 03/04/2016 2:15 PM EDT - 03/04/2016 11:59 PM EDT Hospital Encounter XRay at [address] [place] [address] Lola Haley, [facility] [place] [address] Enteropathic arthritis Discharge Disposition: Home Social History [...] puffs into the lungs daily. 02/21/2011 10/07/2023 Adalimumab (HUMIRA PEN) 40 mg/0.8 mL Pen Injector KitIndications:Ankyl osing spondylitis of cervical region Inject 0.8 mLs subcutaneously every 14 days. 2 kit 6 12/04/2015 05/31/2016 METOPROLOL SUCCINATE ORAL Take 100 mg by [...] EDT Appointment Non-Invasive Cardiology Lab [place] [phone] Luis Alfredo Velazquez MD [facility] [place] [address] 07/02/2024 4:00 PM EDT Office Visit Cardiology at [address] [place] [facility] [place] [address] 07/02/2024 4:40 PM EDT Office Visit Cardiology at [place] [phone] Luis Alfredo Velazquez MD [facility] [place] [address] 07/18/2024 9:00 AM EST Hospital Encounter Non-Invasive Cardiology Lab [address]1000 Arrived 07/27/2024 3:30 PM EST Office Visit Rheumatology at [place] [phone] Gabe Fong MD [facility] [address] 12/07/2024 2:30 PM EDT TH Visit (TeleHealth) Gastroenterology at [place] [phone] Rosemarie Morrow APRN [facility] [place] [address] documented as of this encounter Procedures Procedure [...] BMD measurements and plots are available in EFirst Meta under the imaging tab. Paper copies will be sent to providers without [employer]First Meta access. If you have received this report without the data sheet and do not have access to [employer]First [employer], please contact Radiology Hoist Operator at [phone] Friday thru Friday 8am-4pm. Narrative 03/05/2016 2:40 [...] BMD measurements and plots are available in EFirst Metaunder the imaging tab. Paper copies will be sent to providers without EFirst Meta access.If you have received this report without the data sheet and do not haveaccess to [employer], please contact Radiology Hoist Operator at [phone] Friday thruFriday 8am-4pm. 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
--- OUTSIDE RECORDS SUMMARY | 2024-06-14 15:33 | XMS_ITS | Encounter Summary ---
Author Organization [facility] [place] [address] Care Team Providers Care Translator Name Role Phone Marcio Carranza MD Primary Care Provider [phone] Encounter Details Date Type Department Care Team (Late st Contact Info) Description 02/29/2016 1:45 PM EDT Office [place] [phone] Albert Saenz MD [facility] [place] [address] Enteropathic arthritis Social History Tobacco Use Types [...] today. - Vaccinations- Premovax- 2013, prevnar 13 today. - Bone health: Rpt DEXA, Vit D and Calcium. - rtc in 6 months documented in this encounter Plan of Treatment Upcoming Encounters Date Type Department Care Team (Late st Contact Info) Description 07/02/2024 2:00 PM EDT Appointment Non-[place] [address] Luis Alfredo Velazquez MD [facility] [place] [address] 07/02/2024 4:00 PM EDT Office Visit Cardiology at [address] [phone] [place] [facility] [place] [address] 07/02/2024 4:40 PM EDT Office Visit Cardiology at [address] [phone] Luis Alfredo Velazquez MD [facility] [place] [address] 07/18/2024 9:00 AM EST Hospital Encounter Non-[place]vasive [place] [address] Arrived 07/27/2024 3:30 PM EST Office [place] [address] Gabe Fong MD [facility] [place] [address] 12/07/2024 2:30 PM EDT TH Visit (TeleHealth) [place] [address] Rosemarie Morrow APRN [facility] [place] [address] documented as of this encounter Procedures Procedure Name Priority Date/Time Associated Diagnosis Comments HEMOGRAM Routine 02/29/2016 2:42 PM EDT Enteropathic arthritis DIFFERENTIAL, AUTOMATED Routine 02/29/2016 2:42 PM EDT Enteropathic arthritis CBC (WITH DIFF) Routine 02/29/2016 2:42 PM EDT Enteropathic arthritis CRP, CARDIAC RISK (HS CRP) Routine 02/29/2016 2:42 PM EDT Enteropathic arthritis COMPREHENSIVE METABOLIC PANEL Routine 02/29/2016 2:42 PM EDT Enteropathic arthritis [...] BMD measurements and plots are available in EYouxigu under the imaging tab. Paper copies will be sent to providers without [employer] access. If you have received this report without the data sheet and do not have access to [employer], please contact Radiology Vacuum Tester Cans at [phone] Friday thru Friday 8am-4pm. Narrative 03/05/2016 2:40 [...] BMD measurements and plots are available in E-Really Cheap Geeksunder the imaging tab. Paper copies will be sent to providers without Chikka access.If you have received this report without the data sheet and do not haveaccess to [employer], please contact Radiology Vacuum Tester Cans at [phone] Friday thruFriday 8am-4pm. Lola Haley DO IMG DEXA ORDERABLE S * Differential, Automated (02/29/2016 2:42 PM EDT) Neutrophil % 45.9 % [facility] Neutrophil Absolute 3.38 1.50 - 6.30 x10(3)/[facility] Lymph % 41.3 % [facility] Lymphocytes Abs 3.0 1.0 - 3.6 x10(3)/[facility] Monocyte % 10.0 % [facility] Monocyte Abs 0.7 0.2 - 1.0 x10(3)/[facility] Eos % 2.3 % [facility] Eosinophils Abs 0.2 0.0 - 0.5 x10(3)/[facility] Basophil % 0.4 % [facility] Baso Absolute 0.0 0.0 - 0.2 x10(3)/[facility] Immature Gran % 0.10 % [facility] Comment: Immature granulocytes(IG's)percentage and absolute count will include metamyelocytes, myelocytes, and promyelocytes. Blood smears from CBCs yielding IG's will be scanned manually for concordance. If this scan disagrees with the automated IG or if promyelocytes are noted, a manual differential will be performed. Immature Gran Absolute 0.01 0.00 - 0.05 x10(3)/[facility] Blood specimen (specimen) 02/29/2016 2:42 PM EDT 02/29/2016 2:48 PM EDT Narrative Resulting Agency Comment Spec In Lab Lola Haley DO HEMATOLOGY ORDERAB LES [facility] [place] [address] * (ABNORMAL) Hemogram (02/29/2016 2:42 PM EDT) White Blood Cell 7.4 4.0 - 10.0 x10(3)/mc L [facility] Red Blood Cell 5.15 3.93 - 5.22 x10(6)/mc L [facility] Hemoglobin 16.2(H) 11.2 - 15.7 gm/dL [facility] Hematocrit 48.5(H) 34.0 - 45.0 % [facility] Mean Cell Volume 94.2(H) 79.0 - 94.0 fL [facility] Mean Cell Hemoglobin 31.5 26.6 - 32.2 pg [facility] Mean Cell Hemoglobin Concentration 33.4 32.0 - 36.5 gm/dL [facility] Platelet 193 145 - 370 x10(3)/mc L [facility] RDW Standard Deviation 46.0 35.0 - 46.0 fL [facility] RDW coefficient of variation 13.4 10.9 - 14.4 % [facility] Mean Platelet Volume 11.6 9.0 - 12.0 fL [facility] Blood specimen (specimen) 02/29/2016 2:42 PM EDT 02/29/2016 2:48 PM EDT Narrative Resulting Agency Comment Spec In Lab Lola Haley DO HEMATOLOGY ORDERAB LES Performing Organization Address City/State/[facility] Co de Phone Number [facility] [place] [address] * High Sensitivity CRP (02/29/2016 2:42 PM EDT) C-Reactive Protein High Sensitivity 1.9 mg/L [facility] Comment: [...] the test package insert) References: 1. Demian TA et. al. ??AHA/CDC Scientific Statement: Markers of Inflammation and Cardiovascular Disease. ??Circulation 2003; 107:499-511 2. Ivania PM. ??Clinical applications of C-reactive protein for cardiovascular disease detection and prevention. ??Circulation 2003; 107:363-369 Blood specimen (specimen) 02/29/2016 2:42 PM EDT 02/29/2016 2:48 PM EDT Narrative Resulting Agency Comment Spec In Lab Lola Haley CHEMISTRY ORDERABL ES [facility] [place] [address] * (ABNORMAL) Comprehensive metabolic panel (non-fasting) (02/29/2016 2:42 PM EDT) Glucose 139 65 - 199 mg/dL [facility] Comment:Diabetes: >=200 mg/d L plus symptoms Blood Urea Nitrogen 15 8 - 18 mg/dL [facility] Creatinine 0.82 0.70 - 1.20 mg/dL [facility] Comment: Please note that the pediatric reference intervals supplied above were not validated at [facility]. Results from pediatric patients should be interpreted in conjunction to the patient's age, height and muscle mass. Sodium 144 135 - 145 mmol/L [facility] Potassium 4.0 3.5 - 5.0 mmol/L [facility] Comment: Please note: ??Patients with WBC >100,000 may have falsely elevated Potassium levels. ??For accurate Potassium quantification in these patients send serum separator tube (gold top) for subsequent determinations. ??Contact the Clinical Chemistry Laboratory if there are any questions. Chloride 103 98 - 107 mmol/L [facility] Carbon Dioxide 29 22 - 31 mmol/L [facility] Anion Gap 12 5 - 15 mmol/L [facility] Calcium 10.1 8.5 - 10.5 mg/dL [facility] Protein, Total 7.9 6.1 - 8.0 gm/dL [facility] Albumin 4.4 3.2 - 5.2 gm/dL [facility] Aspartate Aminotransferase 63(H) 0 - 30 unit/L [facility] Alanine Aminotransferase 83(H) 0 - 30 unit/L [facility] Alkaline Phosphatase 78 40 - 104 unit/L [facility] Bilirubin, Total 0.4 0.2 - 1.3 mg/dL [facility] Bilirubin, Direct 0.1 0.0 - 0.3 mg/dL [facility] Est Glomerular Filtration Rate >60 >=60 [facility] Comment: This estimated GFR (eGFR) [...] the following links into your internet browser. 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
--- OUTSIDE RECORDS SUMMARY | 2024-06-14 15:33 | XMS_ITS | Encounter Summary ---
Author Organization [facility] [place] [address] Care Team Providers Care Herpetology Teacher Name Role Phone Marcio Devlin DO Primary Care Provider [phone] Encounter Details Date Type Department Care Team (Late st Contact Info) Description 01/26/2018 11:30 AM EDT Procedure [place] [address] Rian Castro MD [facility] [place] [address] Ankylosing spondylitis, unspecified site of spine Social [...] Images are available on the Rheumatology Image Liquid Sugar Melter Archive. Images of the left hand demonstrate [...] 2:00 PM EDT Appointment Non-[place] [phone] Luis Alfredo Velazquez MD [facility] [place] [address] 07/02/2024 4:00 PM EDT Office Visit Cardiology at [address] [phone] [place] [facility] [place] [address] 07/02/2024 4:40 PM EDT Office Visit Cardiology at [address] [phone] Luis Alfredo Velazquez MD [facility] [place] [address] 07/18/2024 9:00 AM EST Hospital Encounter Non-[place] [phone] Arrived 07/27/2024 3:30 PM EST Office Visit Rheumatology at [address]1000 Gabe Fong MD [facility] [place] [place] [address] 12/07/2024 2:30 PM EDT TH Visit (TeleHealth) [place] [address] Rosemarie Morrow APRN [facility] [place] [address] documented as of this encounter Visit Diagnoses Diagnosis Ankylosing spondylitis, unspecified site of spine documented in this encounter Care Teams Herpetology Teacher Relationship Specialty Start Date End Date Marcio Devlin DO [address] [place] [address] PCP - General Family Medicine 11/11/17 documented as of this encounter
--- OUTSIDE RECORDS SUMMARY | 2024-06-14 15:33 | XMS_ITS | Encounter Summary ---
Author Organization [facility] [place] [address] Care Team Providers Care Upholstery Technician Name Role Phone Marcio Carranza MD Primary Care Provider [phone] Encounter Details Date Type Department Care Team (Late st Contact Info) Description 08/14/2017 [place] [phone] Nico Campbell DO [facility] [place] [address] Social History Tobacco Use Types Packs/Day Years [...] 2:00 PM EDT Appointment Non-[place] [address] Luis Alfredo Velazquez MD [facility] [place] [address] 07/02/2024 4:00 PM EDT Office Visit Cardiology at [address] [address] [place] [facility] [place] [address] 07/02/2024 4:40 PM EDT Office Visit Cardiology at [address] [address] Luis Alfredo Velazquez MD [facility] [place] [address] 07/18/2024 9:00 AM EST Hospital Encounter Non-Invasive Cardiology Lab [place] [phone] Arrived 07/27/2024 3:30 PM EST Office [place] [address] Gabe Fong MD [facility] [place] [address] 12/07/2024 2:30 PM EDT TH Visit (TeleHealth) [place] [address] Rosemarie Morrow APRN [facility] [address] documented as of this encounter Visit Diagnoses Not on filedocumented in this encounter Care Teams Upholstery Technician Relationship Specialty Start Date End Date Marcio Carranza MD [address] [place] [address] PCP - General 08/07/10 11/10/17 documented as of this encounter
--- OUTSIDE RECORDS SUMMARY | 2024-06-14 15:34 | XMS_ITS | Encounter Summary ---
Author Organization [facility] [place] [address] Care Team Providers Care Electrical Prospecting Observer Name Role Phone Marcio Carranza MD Primary Care Provider +1 -[phone] Encounter Details Date Type Department Care Team (Late st Contact Info) Description 08/24/2015 4:00 PM EST Office [place] [phone] Albert Saenz MD [facility] [place] [address] Ankylosing spondylitis Social History Tobacco Use Types [...] EDT Appointment Non-Invasive Cardiology Lab [place] [phone] Luis Alfredo Velazquez MD [facility] [place] [address] 07/02/2024 4:00 PM EDT Office [place] [address] Mars Green PA [facility] [place] [address] 07/02/2024 4:40 PM EDT Office Visit Cardiology at [place] [phone] Luis Alfredo Velazquez MD [facility] [place] [address] 07/18/2024 9:00 AM EST Hospital Encounter Non-[place] [address] Arrived 07/27/2024 3:30 PM EST Office Visit Rheumatology at [place] [phone] Gabe Fong MD [facility] [place] [address] 12/07/2024 2:30 PM EDT TH Visit (TeleHealth) [place] [address] Rosemarie Morrow, TRAVELING SALES REPRESENTATIVE [facility] GASTROENTEROLOGY [place] [phone] documented as of this encounter Procedures Procedure [...] and spinous processes appeared intact. Procedure Note SusanSamm, DO - 08/24/2015 EXAMINATION: XR CERVICAL SPINE [...] Sensitivity CRP (08/24/2015 4:45 PM EST) Pathologist [facility] C-Reactive Protein High Sensitivity 1.8 mg/L [facility] Comment: Interpretations: 1) For accurate [...] DO CHEMISTRY ORDERA BLES Performing Organization Address [facility] de Phone Number [facility] [email or web address] * Sedimentation rate (08/24/2015 4:45 PM EST) [facility] Sedimentation Rate Automated 6 0 - 20 mm/hr [facility] Blood specimen (specimen) 08/24/2015 4:45 PM EST 08/24/2015 4:48 PM EST Narrative Resulting Agency Comment Spec In Lab Brittani Martinez DO HEMATOLOGY ORDER EDUAR TYSHAWN ELLIOTTLOS [facility] documented in this encounter Visit Diagnoses Diagnosis Ankylosing spondylitis Ankylosing spondylitis Ankylosing spondylitis documented in this encounter Care Teams Electrical Prospecting Observer Relationship Specialty Start Date End Date Marcio Carranza MD [address] [place] [address] PCP - General 08/07/10 11/10/17 documented as of this encounter
--- OUTSIDE RECORDS SUMMARY | 2024-06-14 15:34 | XMS_ITS | Encounter Summary ---
Author Organization Formerly [facility] [place] [address] Care Team Providers Care Information Technology Instructor Name Role Phone Marcio Carranza MD Primary Care Provider +1 -[phone] Encounter Details Date Type Department Care Team (Late st Contact Info) Description 08/23/2011 Orders [place] [address] Laura Miles, RN Social History [...] 2:00 PM EDT Appointment Non-Invasive Cardiology [place] [address] Luis Alfredo Velazquez MD [facility] [place] [address] 07/02/2024 4:00 PM EDT Office Visit Cardiology at [place] [address] Mars Green PA [facility] [place] [address] 07/02/2024 4:40 PM EDT Office Visit Cardiology at [place] [address] Luis Alfredo Velazquez MD [facility] [place] [address] 07/18/2024 9:00 AM EST Hospital Encounter Non[place] [address] Arrived 07/27/2024 3:30 PM EST Office Visit Rheumatology at [place] [address] Gabe Fong MD [facility] [place] [address] 12/07/2024 2:30 PM EDT TH Visit (TeleHealth) [place] [address] Rosemarie Morrow APRN [facility] [place] [address] documented as of this encounter Visit Diagnoses Not on filedocumented in this encounter Care Teams Information Technology Instructor Relationship Specialty Start Date End Date Marcio Carranza MD [address] [place] [address] PCP - General 08/07/10 11/10/17 documented as of this encounter
--- OUTSIDE RECORDS SUMMARY | 2024-06-14 15:34 | XMS_ITS | Encounter Summary ---
Author [place] [address] Care Team Providers Care Residential Remodeling Subcontractor Name Role Phone Marcio Carranza MD Primary Care Provider +1 [phone] Encounter Details Date Type Department Care Team (Late st Contact Info) Description 05/18/2014 3:30 PM EDT Follow-[place] [phone] Shola Whitlock [facility] [place] [address] Ankylosing spondylitis (Primary Dx) Discharge Disposition: Home [...] associated Ankylosing Spondylitis - Currently on Humira [id number] and [id number] - Symptoms of cervical and [...] 2:00 PM EDT Appointment Non-[place] [address] Luis Alfredo Velazquez MD [facility] [place] [address] 07/02/2024 4:00 PM EDT Office Visit Cardiology at [address] [address] Mars Green PA [facility] [place] [address] 07/02/2024 4:40 PM EDT Office Visit Cardiology at [address] [address] Luis Alfredo Velazquez MD [facility] [place] [address] 07/18/2024 9:00 AM EST Hospital Encounter Non-[place] [address] Arrived 07/27/2024 3:30 PM EST Office [place] [address] Gabe Fong MD [facility] [place] [address] 12/07/2024 2:30 PM EDT TH Visit (TeleHealth) [place] [address] Rosemarie Morrow APRN [facility] [place] [address] documented as of this encounter Procedures Procedure [...] PM EDT Ankylosing spondylitis COMPREHENSIVE METABOLIC PANEL Routine 05/18/2014 4:41 PM EDT Ankylosing spondylitis documented in this encounter Results * Differential, Automated (05/18/2014 4:41 PM EDT) Neutrophil % 52.7 34.0 - 71.0 % CERNER MILLENNIUM Neutrophil Absolute 4.50 1.50 - 6.30 x10(3)/mcL [facility] MILLENNIUM Lymph % 34.5 19.0 - 53.0 % CERNER MILLENNIUM Lymphocytes Abs 3.0 1.0 - 3.6 x10(3)/mcL CERNER MILLENNIUM Monocyte % 10.2 4.0 - 13.0 % CERNER MILLENNIUM Monocyte Abs 0.9 0.2 - 1.0 x10(3)/mcL CERNER MILLENNIUM Eos % 1.9 0.0 - 7.0 % CERNER MILLENNIUM Eosinophils Abs 0.2 0.0 - 0.5 x10(3)/mcL CERNER MILLENNIUM Basophil % 0.5 0.0 - 2.0 % CERNER MILLENNIUM Baso Absolute 0.0 0.0 - 0.2 x10(3)/mcL CERNER MILLENNIUM [...] performed. Immature Gran Absolute 0.02 0.00 - 0.05 x10(3)/mcL [facility] MILLENNIUM Blood specimen (specimen) 05/18/2014 4:41 PM EDT 05/18/2014 4:49 PM EDT Narrative Resulting Agency Comment Spec In Lab Liang Novak MD HEMATOLOGY ORDERABLE S CERNER MILLENNIUM * (ABNORMAL) Hemogram (05/18/2014 4:41 PM EDT) [facility] White Blood Cell 8.5 4.0 - 10.0 x10(3)/mc L CERNER MILLENNIUM Red Blood Cell 4.99 3.93 - 5.22 x10(6)/mc L CERNER MILLENNIUM Hemoglobin 15.5 11.2 - 15.7 gm/dL CERNER MILLENNIUM Hematocrit 47.5(H) 34.0 - 45.0 % CERNER MILLENNIUM Mean Cell Volume 95.2(H) 79.0 - 94.0 fL CERNER MILLENNIUM Mean Cell Hemoglobin 31.1 26.6 - 32.2 pg CERNER MILLENNIUM Mean Cell Hemoglobin Concentration 32.6 32.0 - 36.5 gm/dL CERNER MILLENNIUM Platelet 206 145 - 370 x10(3)/mc L CERNER MILLENNIUM RDW Standard Deviation 47.7(H) 35.0 - 46.0 fL CERNER MILLENNIUM RDW coefficient of variation 13.8 10.9 - 14.4 % CERNER MILLENNIUM Mean Platelet Volume 10.7 9.0 - 12.0 fL [facility]ERNER MILLENNIUM Blood specimen (specimen) 05/18/2014 4:41 PM EDT 05/18/2014 4:49 PM EDT Narrative Resulting Agency Comment Spec In Lab Liang Nvoak MD HEMATOLOGY ORDERABLE S [facility] * (ABNORMAL) Comprehensive metabolic panel (non-fasting) (05/18/2014 4:41 PM EDT) [facility] Glucose 122 60 - 199 mg/dL CERNER MILLENNIUM Comment:Diabetes: >=200 mg/d L plus symptoms Blood Urea Nitrogen 16 8 - 18 mg/dL CERNER MILLENNIUM Creatinine 0.85 0.70 - 1.20 mg/dL CERNER MILLENNIUM Comment: Please note that the pediatric reference intervals supplied above were not validated at [facility]. Results from pediatric patients should be interpreted in conjunction to the patient's age, height and muscle mass. Sodium 142 135 - 145 mmol/L [facility] MILLENNIUM Potassium 4.3 3.5 - 5.0 mmol/L CERNER MILLENNIUM Comment: Please note: ??Patients with WBC >100,000 may have falsely elevated Potassium levels. ??For accurate Potassium quantification in these patients send serum separator tube (gold top) for subsequent determinations. ??Contact the Clinical Chemistry Laboratory if there are any questions. Chloride 103 98 - 107 mmol/L CERNER MILLENNIUM Carbon Dioxide 28 22 - 31 mmol/L CERNER MILLENNIUM Anion Gap 11 5 - 15 mmol/L CERNER MILLENNIUM Calcium 9.9 8.5 - 10.5 mg/dL CERNER MILLENNIUM Protein, Total 8.2 6.4 - 8.3 gm/dL CERNER MILLENNIUM Albumin 4.4 3.2 - 5.2 gm/dL CERNER MILLENNIUM Aspartate Aminotransferase 34(H) 0 - 30 unit/L CERNER MILLENNIUM Alanine Aminotransferase 37(H) 0 - 30 unit/L CERNER MILLENNIUM Alkaline Phosphatase 108(H) 40 - 104 unit/L CERNER MILLENNIUM Bilirubin, Total 0.3 0.2 - 1.3 mg/dL CERNER MILLENNIUM Bilirubin, Direct 0.1 0.0 - 0.3 mg/dL CERNER MILLENNIUM Est Glomerular Filtration Rate >60 >=60 CERNER MILLENNIUM Comment: This estimated [...] the following links into your internet browser. [email or web address] Blood specimen (specimen) 05/18/2014 4:41 PM EDT 05/18/2014 4:49 PM EDT Narrative Resulting Agency Comment Spec In Lab Liang Novak MD CHEMISTRY ORDERABLES [facility]ERTRU YOUNGI[facility] * High Sensitivity CRP (05/18/2014 4:41 PM EDT) C-Reactive Protein High Sensitivity 4.3 mg/L CERN[facility] MILLENNIUM Comment: Interpretations: 1) [...] Novak MD CHEMISTRY ORDERABLES Performing Organization Address City/[facility] Co de Phone Number TYSHAWN RICKETTS * Sedimentation rate (05/18/2014 4:41 PM EDT) Sedimentation Rate Automated 9 0 - 20 mm/hr TYSHAWN YOUNGIUM Blood specimen (specimen) 05/18/2014 4:41 PM EDT 05/18/2014 4:49 PM EDT Narrative Resulting Agency Comment Spec In Lab Liang Novak MD HEMATOLOGY ORDERABLE S Performing Organization Address City/[facility] Co de Phone Number TYSHAWN RICKETTS documented in this encounter Visit Diagnoses Diagnosis Ankylosing spondylitis- Primary documented in this encounter Care Teams Residential Remodeling Subcontractor Relationship Specialty Start Date End Date Marcio Carranza MD [address] [place] [address] PCP - General 08/07/10 11/10/17 documented as of this encounter
--- OUTSIDE RECORDS SUMMARY | 2024-06-14 15:34 | XMS_ITS | Encounter Summary ---
Author Organization [facility] Address [facility] [address] Care Team Providers Care Skein Mercerizing Machine Operator Name Role Phone Marcio Carranza MD Primary Care Provider +1 -[phone] Encounter Details Date Type Department Care Team (Late st Contact Info) Description 07/25/[address] [facility] [address] [place] [address] Marcio Townsend MD [facility] [address] [address] Social History Tobacco Use Types Packs/Day Years [...] 05/17/14 Kristian) - please call her at [phone]. Leena Baker documented in this encounter Plan of Treatment Upcoming Encounters Date Type Department Care Team (Late st Contact Info) Description 07/02/2024 2:00 PM EDT Appointment Non-[place] [address] Luis Alfredo Velazquez MD [facility] [place] [address] 07/02/2024 4:00 PM EDT Office Visit Cardiology at [address] [phone] Mars Green PA [facility] [place] [address] 07/02/2024 4:40 PM EDT Office Visit Cardiology at [address] [phone] Luis Alfredo Velazquez MD [facility] [address] [place], [place] [address] 07/18/2024 9:00 AM EST Hospital Encounter Non-[place] [address] Arrived 07/27/2024 3:30 PM EST Office [place] [address] Gabe Fong MD [facility] [place] [address] 12/07/2024 2:30 PM EDT TH Visit (TeleHealth) Gastroenterology at [place] [phone] Rosemarie Morrow APRN [facility] [place] [address] documented as of this encounter Visit Diagnoses Not on filedocumented in this encounter Care Teams Skein Mercerizing Machine Operator Relationship Specialty Start Date End Date Marcio Carranza MD [address] [place] [address] PCP - General 08/07/10 11/10/17 documented as of this encounter
--- OUTSIDE RECORDS SUMMARY | 2024-06-14 15:34 | XMS_ITS | Encounter Summary ---
[place] [address] Care Team Providers Care Bilingual Operator Name Role Phone Marcio Carranza MD Primary Care Provider +1 -[phone] Reason for Visit * Reason Comments Medication Refill Encounter Details Date Type Department Care Team (Late st Contact Info) Description 10/28/2013 Refill [place] [address] Eden Reynoso MD [address] [place] [address] [place] [address] Social History Tobacco Use Types Packs/Day Years [...] 2:00 PM EDT Appointment Non-[place]vasive [place] [address] Luis Alfredo Velazquez MD [facility] [place] [address] 07/02/2024 4:00 PM EDT Office Visit Cardiology at [place] [address] Mars Green PA [facility] [place] [address] 07/02/2024 4:40 PM EDT Office Visit Cardiology at [place] [address] Luis Alfredo Velazquez MD [facility] [place] [address] 07/18/2024 9:00 AM EST Hospital Encounter Non-Invasive Cardiology Lab [place] [address] Arrived 07/27/2024 3:30 PM EST Office Visit Rheumatology at [place] [address] Gabe Fong MD [facility] [place] [address] 12/07/2024 2:30 PM EDT TH Visit (TeleHealth) Gastroenterology at [place] [address] Rosemarie Morrow, SKIP [facility] [place] [address] documented as of this encounter Visit Diagnoses Not on filedocumented in this encounter Care Teams Bilingual Operator Relationship Specialty Start Date End Date Marcio Carranza MD [address] [place] [address] PCP - General 08/07/10 11/10/17 documented as of this encounter
--- OUTSIDE RECORDS SUMMARY | 2024-06-14 15:34 | XMS_ITS | Encounter Summary ---
Author Organization [facility] Address [facility] [place] [address] Care Team Providers Care Trimmer Helper Name Role Phone Marcio Carranza MD Primary Care Provider +1 -[phone] Reason for Visit * Reason Comments Follow-up Encounter Details Date Type Department Care Team (Late st Contact Info) Description 05/11/2014 8:20 AM EDT Office Visit Dermatology at [facility] [address] [place] [address] July Dumont MD [facility] [address] [place] [address] Neoplasm of unspecified nature of bone, soft [...] or concerns, please call the office at [phone]. If it is after 5PM, or a holiday or weekend, please call [phone] and ask for the Pull Up Hand on-call. documented in this encounter Progress Notes [...] as sporotrichosis- patient agreed to biopsy to derrickman helper in diagnosis. May need additional biopsy [...] encounter. July Dumont MD Resident in Dermatology [facility] Patient seen and evaluated with staff secondary market manager: Haley Soto MD Section of Dermatology [facility] documented in this encounter Plan of Treatment Upcoming Encounters Date Type Department Care Team (Late st Contact Info) Description 07/02/2024 2:00 PM EDT Appointment Non-Invasive [place] [address] Luis Alfredo Velazquez MD [facility] [place] [address] 07/02/2024 4:00 PM EDT Office Visit Cardiology at [place] [phone] Mars Green PA [facility] [place] [address] 07/02/2024 4:40 PM EDT Office Visit Cardiology at [place] [phone] Luis Alfredo Velazquez MD [facility] [place] [address] 07/18/2024 9:00 AM EST Hospital Encounter Non-Invasive [place] [address] Arrived 07/27/2024 3:30 PM EST Office Visit Rheumatology at [place] [phone] Gabe Fong MD [facility] [place] [address] 12/07/2024 2:30 PM EDT TH Visit (TeleHealth) Gastroenterology at [facility] [place] [address] Rosemarie Morrow APRN [facility] [place] [place] [address] documented as of this encounter Procedures Procedure Name Priority Date/Time Associated Diagnosis Comments SPECIMEN TO PATHOLOGY (NON-OR) Routine 05/11/2014 9:29 AM EDT Neoplasm of unspecified nature of bone, soft tissue, and skin SURGICAL PATHOLOGY REPORT Routine 05/11/2014 9:29 AM EDT documented in this encounter Results * Surgical Pathology Report (05/11/2014 9:29 AM EDT) Final Diagnosis ? [facility] ? Provider: ?? JULY DUMONT ? Pt. Name: ?? JENNIFER PEREZ ? Acc #: ?[id number] ? Pt. ? Col Date: ?? 05/11/2014 [...] A - Labeled/Fixative: Patient's name, formalin. ? [facility] ? Provider: ?? JULY DUMONT ? Pt. Name: ?? ANAJENNIFER ? Acc #: ?[id number] ? Pt. ? Col Date: ?? 05/11/2014 [...] ? as sporotrichosis 05/13/2014 12:42 PM EDT [facility] SPECIMEN FROM SKIN / Unknown 05/11/2014 9:29 AM EDT 05/11/2014 9:29 AM EDT July Dumont MD PATHOLOGY/CYTOLOGY O RDERABLES [facility] [place] [address] * Specimen to Pathology (NON-OR) (05/11/2014 9:29 AM EDT) AP Specimen 05/11/2014 9:29 AM EDT 05/11/2014 9:29 AM EDT Narrative DAOTRU RICKETTS - 05/11/2014 9:29 AM EDT Specimen requisition ordered. ??Separate Pathology report to follow Haley Soto MD PATHOLOGY/CYTOLOGY ORDERABLES Performing Organization Address City/[facility]/ZIP Co de Phone Number TYSHAWN RICKETTS documented in this encounter Visit Diagnoses Diagnosis Neoplasm of unspecified nature of bone, soft tissue, and skin- Primary documented in this encounter Care Teams Trimmer Helper Relationship Specialty Start Date End Date Marcio Carranza MD [address] [place] [address] PCP - General 08/07/10 11/10/17 documented as of this encounter
--- OUTSIDE RECORDS SUMMARY | 2024-06-14 15:34 | XMS_ITS | Encounter Summary ---
Author Organization [facility] [place] [address] Care Team Providers Care Material Handler Floorperson Name Role Phone Kaylie Carranza MD Primary Care Provider +1 -[phone] Reason for Visit * Reason Comments Ulcerative Colitis Encounter Details Date Type Department Care Team (Late st Contact Info) Description 03/11/2011 10:00 AM EDT Follow-[place] [phone] Dajuan Rachel MD [facility] [place] [address] Ulcerative colitis (Primary Dx) Discharge Disposition: Home [...] Colonoscopy 09/19/08 (Dr. Shady Luz at [facility]). Areas of skip inflammation in transverse, descending, & rectosigmoid. Upon retroflexion, a rectal mucosal tear requiring subsequent admission for antibiotics. Biopsies: normal ileum, non- specific eosinophilic infiltration of the cecum, chronic inactive colitis in the descending, rectum, sigmoid, and rectum. The transverse colon revealed moderate to severe chronic, active colitis. Last colonoscopy 01/03/2011 (Dr. Yaquelin Chan) - [id number]-jwuwpzoq inflammation rectum to cecum with aninflammatory sigmoid polyp Ankylosing spondylitis diagnosed ~1991; also history of iritis ??? DIFFICULT AIRWAY ??? MÉNDEZ (nonalcoholic steatohepatitis) ??? Lipid disorder ??? Ankylosing spondylitis ??? Hypertension ??? GERD (gastroesophageal reflux disease) Subjective: LEE ANN Funes is a 50 y.o. woman with a long history of ulcerative colitis [facility] Since she was last to see me, she was started on Humira by Dr. Eden Reynoso in late summer 2008 with subsequent elevations of her LFTs. She was seen by Dr. Yaquelin Chan who conducted liver biopsy which showed steatohepatitis. She has since been restarted in Humira. Dr. Chan did her last colonoscopy in December. There was rpkl-rf-maahaduq chronic pancolitis. Biopsiesshowed no dysplasia, and there [...] office one month thereafter. Freddy Rachel MD Sheet Tailerparaplanner Section of Gastroenterology [place] [address] CC: KAYLIE CARRANZA MD [address] [address] YAQUELIN CHAN MD [facility] HEPATOLOGY documented in this encounter Plan of Treatment Upcoming Encounters Date Type Department Care Team (Late st Contact Info) Description 07/02/2024 2:00 PM EDT Appointment Non-Invasive [place] [phone] Luis Alfredo Velazquez MD [facility] [place] [address] 07/02/2024 4:00 PM EDT Office Visit Cardiology at [address] [phone] Mars Green PA [facility] [place] [address] 07/02/2024 4:40 PM EDT Office Visit Cardiology at [place] [phone] Luis Alfredo Velazquez MD [facility] [place] [address] 07/18/2024 9:00 AM EST Hospital Encounter Non-[place] [address] Arrived 07/27/2024 3:30 PM EST Office [place] [address] Gabe Fong MD [facility] [place] [address] 12/07/2024 2:30 PM EDT TH Visit (TeleHealth) Gastroenterology at [address] Rosemarie Morrow, SKIP [facility] [place] [address] documented as of this encounter Visit Diagnoses Diagnosis Ulcerative colitis- Primary Ulcerative colitis, unspecified documented in this encounter Care Teams Material Handler Floorperson Relationship Specialty Start Date End Date Kaylie Carranza MD [address] [place] [address] PCP - General 08/07/10 11/10/17 documented as of this encounter
--- OUTSIDE RECORDS SUMMARY | 2024-06-14 15:34 | XMS_ITS | Encounter Summary ---
Author Organization [facility] [place] [address] Care Team Providers Care Blacksmith Farm Name Role Phone Marcio Carranza MD Primary Care Provider [phone] Reason for Visit * Reason Onset Date Comments Medication Refill 09/19/2011 Encounter Details Date Type Department Care Team (Late st Contact Info) Description 09/19/2011 Refill [place] [phone] Marc Chan MD [facility] [place] [address] Social History Tobacco Use Types Packs/Day Years [...] 2:00 PM EDT Appointment [place] [phone] Luis Alfredo Velazquez MD [facility] [place] [address] 07/02/2024 4:00 PM EDT Office Visit Cardiology at [place] [address] [address] [place] [facility] [place] [address] 07/02/2024 4:40 PM EDT Office Visit Cardiology at [place] [address] Luis Alfredo Velazquez MD [facility] [place] [address] 07/18/2024 9:00 AM EST Hospital Encounter Non-Invasive Cardiology Lab [place] [address] Arrived 07/27/2024 3:30 PM EST Office Visit Rheumatology at [place] [address] Gabe Fong MD [facility] [place] [address] 12/07/2024 2:30 PM EDT TH Visit (TeleHealth) Gastroenterology at [address] Rosemarie Morrow APRN [facility] [place] [address] documented as of this encounter Visit Diagnoses Not on filedocumented in this encounter Care Teams Blacksmith Farm Relationship Specialty Start Date End Date Marcio Carranza MD [address] [place] [address] PCP - General 08/07/10 11/10/17 documented as of this encounter
--- OUTSIDE RECORDS SUMMARY | 2024-06-14 15:34 | XMS_ITS | Encounter Summary ---
Author Organization [facility] [place] [address] Care Team Providers Care Wood Boatbuilder Apprentice Name Role Phone Marcio Devlin DO Primary Care Provider [phone] Reason for Visit * Reason Comments Medication Refill Encounter Details Date Type Department Care Team (Late st Contact Info) Description 04/06/2015 [place] [phone] Shola Whitlock, [facility] [place] [address] Social History Tobacco Use Types Packs/Day Years [...] 2:00 PM EDT Appointment Non-Invasive [place] [address] Luis Alrfedo Velazquez MD [facility] [address] 07/02/2024 4:00 PM EDT Office Visit Cardiology at [place] [address] [address] [place] [facility] [place] [address] 07/02/2024 4:40 PM EDT Office Visit Cardiology at [place] [address] Luis Alfredo Velazquez MD [facility] [place] [address] 07/18/2024 9:00 AM EST Hospital Encounter Non-Invasive Cardiology Lab [place] [address] Arrived 07/27/2024 3:30 PM EST Office Visit Rheumatology at [place] [address] Gabe Fong MD [facility] [place] [address] 12/07/2024 2:30 PM EDT TH Visit (TeleHealth) Gastroenterology at [place] [address] Rosemarie Morrow APRN [facility] [place] [address] documented as of this encounter Visit Diagnoses Not on filedocumented in this encounter Care Teams Wood Boatbuilder Apprentice Relationship Specialty Start Date End Date Marcio Devlin DO [address] [place] [address] PCP - General Family Medicine 11/11/17 documented as of this encounter
--- OUTSIDE RECORDS SUMMARY | 2024-06-14 15:34 | XMS_ITS | Encounter Summary ---
Author Organization [facility] [place] [address] Care Team Providers Care Sports Leadership Instructor Name Role Phone Marcio Carranza MD Primary Care Provider [phone] Reason for Visit * Reason Comments Medication Refill Encounter Details Date Type Department Care Team (Late st Contact Info) Description 04/03/2012 Refill [place] [address] Eden Reynoso MD [address] [place] [address] [place] [address] Social History Tobacco Use Types Packs/Day Years [...] 2:00 PM EDT Appointment Non-Invasive Cardiology Lab [place] [phone] Luis Alfredo Velazquez MD [facility] [place] [address] 07/02/2024 4:00 PM EDT Office Visit Cardiology at [address] [place] [facility] [place] [address] 07/02/2024 4:40 PM EDT Office Visit Cardiology at [place] [phone] Luis Alfredo Velazquez MD [facility] [place] [address] 07/18/2024 9:00 AM EST Hospital Encounter Non-Invasive Cardiology Lab [place] [phone] Arrived 07/27/2024 3:30 PM EST Office Visit Rheumatology at [place] [phone] Gabe Fong MD [facility] [place] [address] 12/07/2024 2:30 PM EDT TH Visit (TeleHealth) [place] [address] Rosemarie Morrow APRN [facility] [place] [address] documented as of this encounter Visit Diagnoses Not on filedocumented in this encounter Care Teams Sports Leadership Instructor Relationship Specialty Start Date End Date Marcio Carranza MD [address] [place] [address] PCP - General 08/07/10 11/10/17 documented as of this encounter
--- OUTSIDE RECORDS SUMMARY | 2024-06-14 15:34 | XMS_ITS | Encounter Summary ---
Author Organization [facility] [place] [address] Care Team Providers Care Form Coverer Name Role Phone Marcio Carranza MD Primary Care Provider [phone] Encounter Details Date Type Department Care Team (Late st Contact Info) Description 06/03/2014 [place]phone [place] [phone] Cherrie Augustine LPN Social History Tobacco Use [...] and said she was seen at [facility] today and they told her she [...] 2:00 PM EDT Appointment Non-In[place] [address] Luis Alfredo Velazquez MD [facility] [place] [address] 07/02/2024 4:00 PM EDT Office Visit Cardiology at [place] [phone] [place] PA [facility] [place] [address] 07/02/2024 4:40 PM EDT Office Visit Cardiology at [address] [phone] Luis Alfredo Velazquez MD [facility] [place] [address] 07/18/2024 9:00 AM EST Hospital Encounter Non-Invasive Cardiology Lab [place] [phone] Arrived 07/27/2024 3:30 PM EST Office [place] [address] Gabe Fong MD [facility] [place] [address] 12/07/2024 2:30 PM EDT TH Visit (TeleHealth) Gastroenterology at [place] [phone] Rosemarie Morrow, LEAD HANDLER [facility] GASTROENTEROLOGY [place] [phone] documented as of this encounter Visit Diagnoses Not on filedocumented in this encounter Care Teams Form Coverer Relationship Specialty Start Date End Date Marcio Carranza MD [address] [place] [address] PCP - General 08/07/10 11/10/17 documented as of this encounter
--- OUTSIDE RECORDS SUMMARY | 2024-06-14 15:34 | XMS_ITS | Encounter Summary ---
Author Organization [facility] [place] [address] Care Team Providers Care Retail Pharmacy Technician Name Role Phone Marcio Carranza MD Primary Care Provider [phone] Reason for Visit * Reason Onset Date Comments Medication Refill 10/08/2012 Encounter Details Date Type Department Care Team (Late st Contact Info) Description 10/08/2012 [place] [address] Jose Manuel Reynoso MD [address] [place] [address] [place] [address] Spondylitis Social History Tobacco Use Types Packs/Day [...] injection [JOSE MANUEL REYNOSO MD] Preferred pharmacy: [facility] Comment: documented in this encounter Plan of Treatment Upcoming Encounters Date Type Department Care Team (Late st Contact Info) Description 07/02/2024 2:00 PM EDT Appointment Non-Invasive Cardiology Lab [place] [phone] Luis Alfredo Velazquez MD [facility] [place] [address] 07/02/2024 4:00 PM EDT Office Visit Cardiology at [place] [phone] [place] [facility] [place] [address] 07/02/2024 4:40 PM EDT Office Visit Cardiology at [place] [phone] Luis Alfredo Velazquez MD [facility] [place] [address] 07/18/2024 9:00 AM EST Hospital Encounter Non-Invasive [place] [phone] Arrived 07/27/2024 3:30 PM EST Office Visit Rheumatology at [place] [phone] Gabe Fong MD [facility] [address] 12/07/2024 2:30 PM EDT TH Visit (TeleHealth) [place] [address] Rosemarie Morrow APRN [facility] [place] [address] documented as of this encounter Visit Diagnoses Diagnosis Spondylitis Unspecified inflammatory spondylopathy documented in this encounter Care Teams Retail Pharmacy Technician Relationship Specialty Start Date End Date Marcio Carranza MD [address] [place] [address] PCP - General 08/07/10 11/10/17 documented as of this encounter
--- OUTSIDE RECORDS SUMMARY | 2024-06-14 15:34 | XMS_ITS | Encounter Summary ---
Author Organization [facility] Address [facility] [place] [address] Care Team Providers Care Senior J2Ee Developer Name Role Phone Kaylie Carranza MD Primary Care Provider [phone] [phone] Reason for Visit * Reason Comments Follow-up Encounter Details Date Type Department Care Team (Late st Contact Info) Description 05/17/2014 3:30 PM EDT Follow-Up Dermatology at [facility] [address] [place] [phone] Kaylie Shaffer MD [facility] [address] [place] [address] Panniculitis (Primary Dx) Discharge Disposition: Home Social [...] 2:03 PM EST Unable to reach Kim Funes by telephone to discuss how she is [...] PATIENT FOLLOW-UP Date of service: 05/17/2014 Kim Funes : 1960 Dermatology Resident Note: July Pack MD Chief Problem: Chief Complaint Patient presents with ??? Follow-up Ms. Kim Fuens is a 54 y.o. female. This is an established patient, last seen by July Pack MD on 05/11/2014. HPI: Ms. Funes presents for follow-up of her panniculitis. Minimal [...] encounter. Kaylie Shaffer MD Resident in Dermatology [facility] Patient seen and evaluated with staff room service attendant: Cara Sharif MD Section of Dermatology [facility] documented in this encounter Plan of Treatment Upcoming Encounters Date Type Department Care Team (Late st Contact Info) Description 07/02/2024 2:00 PM EDT Appointment Non-[place] [phone] Luis Alfredo Velazquez MD [facility] [place] [address] 07/02/2024 4:00 PM EDT Office Visit Cardiology at [address] [phone] Mars Geren PA [facility] [place] [address] 07/02/2024 4:40 PM EDT Office Visit Cardiology at [address] [phone] Luis Alfredo Velazquez MD [facility] [place] [address] 07/18/2024 9:00 AM EST Hospital Encounter Non-[place]vasive [place] [phone] Arrived 07/27/2024 3:30 PM EST Office Visit Rheumatology at [place] [phone] Gabe Fong MD [facility] [place] [address] 12/07/2024 2:30 PM EDT TH Visit (TeleHealth) [place] [address] Rosemarie Morrow APRN [facility] [place] [address] documented as of this encounter Procedures Procedure Name Priority Date/Time Associated Diagnosis Comments AFB CULTURE STAT 05/17/2014 4:14 PM EDT Panniculitis TISSUE CULTURE STAT 05/17/2014 4:14 PM EDT Panniculitis FUNGUS CULTURE Routine 05/17/2014 4:14 PM EDT documented in this encounter Results * Fungus culture (05/17/2014 4:14 PM EDT) Fungus Culture ? Patient Name: KIM FUNES ?Ordered By: KAYLIE SHAFFER ? MR#: [id number] ?LOC: ??HDM ? /Sex: ??1960 (54 years), ? Female ? PROCEDURE: Fungus Culture ?SOURCE: Tissue ? COLLECTED: 05/17/2014 16:14 ? STARTED: 05/17/2014 16:56 ? FINAL REPORT ? Final Report ? Verified:2013 08:04 ? No Fungus isolated ? PRELIMINARY REPORT ? Preliminary Report ? Verified:2013 08:22 ? No Fungus isolated to date ? [facility] specimen (specimen) 05/17/2014 4:14 PM EDT 05/17/2014 4:55 PM EDT Narrative Resulting Agency Comment Spec In Lab Kaylie Shaffer MD MICROBIOLOGY - NERAL ORDERABLES [facility] * AFB culture Biopsy (05/17/2014 4:14 PM EDT) Acid Fast Bacilli Culture ? Patient Name: KIM FUNES ?Ordered By: CARA SHARIF ? MR#: [id number] ?LOC: ??HDM ? /Sex: ??1960 (54 years), [...] bacilli isolated at 7 weeks. ? TYSHAWN RICKETTS Specimen from unspecified body site obtained by biopsy (specimen) 05/17/2014 4:14 PM EDT 05/17/2014 4:53 PM EDT Narrative Resulting Agency Comment Spec In Lab Cara Sharif MD MICROBIOLOGY - GENER AL ORDERABLES [facility] * Tissue culture Leg (05/17/2014 4:14 PM EDT) Tissue Culture ? Patient Name: KIM FUNES ?Ordered By: CARA SHARIF ? MR#: [id number] ?LOC: ??HDM ? /Sex: ??1960 (54 years), [...] - GENER AL ORDERABLES Performing Organization Address City/State/[facility] Co de Phone Number YTSHAWN RICKETTS documented in this encounter Visit Diagnoses Diagnosis Panniculitis- Primary Panniculitis, unspecified site documented in this encounter Care Teams Senior J2Ee Developer Relationship Specialty Start Date End Date Kaylie Carranza MD [address] [place] [address] PCP - General 08/07/10 11/10/17 documented as of this encounter
--- OUTSIDE RECORDS SUMMARY | 2024-06-14 15:34 | XMS_ITS | Encounter Summary ---
[place] [address] Care Team Providers Care Customer Services Manager Name Role Phone Marcio Carranza MD Primary Care Provider [phone] Reason for Visit * Reason Onset Date Comments Medication Refill 10/12/2012 Encounter Details Date Type Department Care Team (Late st Contact Info) Description 10/12/2012 [place] [address] Eden Reynoso MD [address] [place] [address] [place] [address] Social History Tobacco Use Types Packs/Day Years [...] PM EDT Appointment Non-[place] [address] Luis Alfredo Velazquez MD [facility] [place] [address] 07/02/2024 4:00 PM EDT Office Visit Cardiology at [place] [address] [address] [place] [facility] [place] [address] 07/02/2024 4:40 PM EDT Office Visit Cardiology at [place] [address] Luis Alfredo Velazquez MD [facility] [place] [address] 07/18/2024 9:00 AM EST Hospital Encounter Non-Invasive Cardiology Lab [place] [address] Arrived 07/27/2024 3:30 PM EST Office Visit Rheumatology at [place] [address] Gabe Fong MD [facility] [place] [address] 12/07/2024 2:30 PM EDT TH Visit (TeleHealth) Gastroenterology at [place] [address] Rosemarie Morrow, SKIP [facility] [place] [address] documented as of this encounter Visit Diagnoses Not on filedocumented in this encounter Care Teams Customer Services Manager Relationship Specialty Start Date End Date Marcio Carranza MD [address] [place] [address] PCP - General 08/07/10 11/10/17 documented as of this encounter
--- OUTSIDE RECORDS SUMMARY | 2024-06-14 15:34 | XMS_ITS | Encounter Summary ---
Author Organization [facility] Address [facility] [place] [address] Care Team Providers Care Chrome Tanning Drum Operator Name Role Phone Marcio Carranza MD Primary Care Provider [phone] [phone] Reason for Visit * Reason Comments Follow-up Encounter Details Date Type Department Care Team (Late st Contact Info) Description 09/26/2014 3:30 PM EST Follow-Up Dermatology at [facility] [address] [place] [phone] July Pack MD [facility] [address] ALIZE [place] [address] Resolved condition, follow-up; Erythema nodosum; Psoriasis Discharge [...] supervision with direct supervision immediately available. (definition: [facility] GME Policy Statement on Graduate Medical Education, [...] MD Resident in Dermatology [facility] staff pododermatologist: Ruy Neff MD Section of Dermatology [facility] documented in this encounter Plan of Treatment Upcoming Encounters Date Type Department Care Team (Late st Contact Info) Description 07/02/2024 2:00 PM EDT Appointment Non-Invasive Cardiology Lab [address]1000 Luis Alfredo Velazquez MD [facility] [place] [address] 07/02/2024 4:00 PM EDT Office Visit Cardiology at [address]1000 [place] [facility] [place] [address] 07/02/2024 4:40 PM EDT Office Visit Cardiology at [address]1000 Luis Alfredo Velazquez MD [facility] [place] [address] 07/18/2024 9:00 AM EST Hospital Encounter Non-[place] [address] Arrived 07/27/2024 3:30 PM EST Office [place] [address] Gabe Fong MD [facility] [place] [address] 12/07/2024 2:30 PM EDT TH Visit (TeleHealth) [place] [address] Rosemarie Morrow APRN [facility] [place] [address] documented as of this encounter Visit Diagnoses Diagnosis Resolved condition, follow-up Other follow-up examination Erythema nodosum Psoriasis Other psoriasis documented in this encounter Care Teams Chrome Tanning Drum Operator Relationship Specialty Start Date End Date Marcio Carranza MD [address] [place] [address] PCP - General 08/07/10 11/10/17 documented as of this encounter
--- OUTSIDE RECORDS SUMMARY | 2024-06-14 15:34 | XMS_ITS | Encounter Summary ---
Author Organization [place] [address] Care Team Providers Care Curtain Framer Name Role Phone Marcio Carranza MD Primary Care Provider [phone] [phone] Encounter Details Date Type Department Care Team (Latest Contact Info) Description 06/03/2014 8:45 AM EDT Ancillary Appointment Dermatology at [address] [address] Marcio Townsend MD [facility] DR [place] [address] Erythema nodosum (Primary Dx) Social History Tobacco [...] GRAND ROUNDS NOTE 06/03/2014 Kim Graff Shantel [id number] Marcio Townsend MD Chief Resident in Dermatology [...] topical triamcinolone and clobetasol prn Past Biopsies: [id number], to be discussed Pertinent Labs: CBC WNL [...] will be discussed with patient by referring Development Executive - Dr. Pack. Marcio Townsend MD Resident in Dermatology [facility] Staff mica builder: Casper Marlow MD, PhD Section of Dermatology [facility] documented in this encounter Plan of Treatment Upcoming Encounters Date Type Department Care Team (Late st Contact Info) Description 07/02/2024 2:00 PM EDT Appointment [place] [address] Luis Alfredo Velazquez MD [facility] [place] [address] 07/02/2024 4:00 PM EDT Office Visit Cardiology at [address] [phone] Mars Green PA [facility] [place] [address] 07/02/2024 4:40 PM EDT Office Visit Cardiology at [place] [phone] Luis Alfredo Velazquez MD [facility] [place] [address] 07/18/2024 9:00 AM EST Hospital Encounter Non-[place] [address] Arrived 07/27/2024 3:30 PM EST Office [place] [address] Gabe Fong MD [facility] [place] [address] 12/07/2024 2:30 PM EDT TH Visit (TeleHealth) [place] [phone] Rosemarie Morrow APRN [facility] [place] [address] documented as of this encounter Visit Diagnoses Diagnosis Erythema nodosum- Primary documented in this encounter Care Teams Curtain Framer Relationship Specialty Start Date End Date Marcio Carranza MD [address] [place] [address] PCP - General 08/07/10 11/10/17 documented as of this encounter
--- OUTSIDE RECORDS SUMMARY | 2024-06-14 15:34 | XMS_ITS | Encounter Summary ---
Author Organization [facility] Address [facility] [place] [address] Care Team Providers Care Photographic Specialist Name Role Phone Marcio Carranza MD Primary Care Provider [phone] Reason for Visit * Reason Comments Psoriasis Encounter Details Date Type Department Care Team (Late st Contact Info) Description 07/26/2014 2:30 PM EST Follow-Up Dermatology at [facility] [address] [place] [address] July Pack MD [facility] [address] [place] [address] Psoriasis; Panniculitis Discharge Disposition: Home Social History [...] encounter. July Pack MD Resident in Dermatology [facility] Patient seen and evaluated with staff single stayer operator: Cara Cartagena MD Section of Dermatology [facility] documented in this encounter Plan of Treatment Upcoming Encounters Date Type Department Care Team (Late st Contact Info) Description 07/02/2024 2:00 PM EDT Appointment Non-Invasive Cardiology Lab [place] [phone] Luis Alfredo Velazquez MD [facility] [place] [address] 07/02/2024 4:00 PM EDT Office Visit Cardiology at [address]1000 [place] Green PA [facility] [place] [address] 07/02/2024 4:40 PM EDT Office Visit Cardiology at [place] [phone] Luis Alfredo Velazquez MD [facility] [place] [address] 07/18/2024 9:00 AM EST Hospital Encounter Non-Invasive Cardiology Lab [place] [phone] Arrived 07/27/2024 3:30 PM EST Office [place] [address] Gabe Fong MD [facility] [place] [address] 12/07/2024 2:30 PM EDT TH Visit (TeleHealth) [place] [address] Rosemarie Morrow APRN [facility] [place] [address] documented as of this encounter Visit Diagnoses Diagnosis Psoriasis Other psoriasis Panniculitis Panniculitis, unspecified site documented in this encounter Care Teams Photographic Specialist Relationship Specialty Start Date End Date Marcio Carranza MD [address] [place] [address] PCP - General 08/07/10 11/10/17 documented as of this encounter
--- OUTSIDE RECORDS SUMMARY | 2024-06-14 15:34 | XMS_ITS | Encounter Summary ---
Author Organization [facility] Address [facility] [place] [address] Care Team Providers Care Salesperson Floor Coverings Name Role Phone Marcio Carranza MD Primary Care Provider +1 [phone] Reason for Visit * Reason Onset Date Comments Medication Refill 06/06/2014 Encounter Details Date Type Department Care Team (Late st Contact Info) Description 06/06/2014 Refill Dermatology at [facility] [address] [place] [phone] July Pack MD [facility] [place] [address] Scalp psoriasis (Primary Dx) Social History Tobacco [...] 10:23 AM EDT Fax request received form [place], [place] requesting refill of Clobetasol solution. Patient last seen in clinic 05/17/2014 Refill prepared and forwarded to July Pack MD for approval. documented in this encounter Plan of Treatment Upcoming Encounters Date Type Department Care Team (Late st Contact Info) Description 07/02/2024 2:00 PM EDT Appointment Non-[place] [phone] Luis Alfredo Velazquez MD [facility] [place] [address] 07/02/2024 4:00 PM EDT Office Visit Cardiology at [place] [phone] Mars Green PA [facility] [place] [address] 07/02/2024 4:40 PM EDT Office Visit Cardiology at [place] [phone] Luis Alfredo Velazquez MD [facility] [place] [address] 07/18/2024 9:00 AM EST Hospital Encounter Non-[place] [address] Arrived 07/27/2024 3:30 PM EST Office Visit Rheumatology at [place] [phone] Gabe Fong MD [facility] [place] [address] 12/07/2024 2:30 PM EDT TH Visit (TeleHealth) [place] [address] Rosemarie Morrow, SKIP [facility] [place] [address] documented as of this encounter Visit Diagnoses Diagnosis Scalp psoriasis- Primary Other psoriasis documented in this encounter Care Teams Salesperson Floor Coverings Relationship Specialty Start Date End Date Marcio Carranza MD [address] [facility] [place] [address] PCP - General 08/07/10 11/10/17 documented as of this encounter
--- OUTSIDE RECORDS SUMMARY | 2024-06-14 15:34 | XMS_ITS | Encounter Summary ---
Author Organization [place] [address] Care Team Providers Care Range Aid Name Role Phone Marcio Carranza MD Primary Care Provider +1 [phone] Reason for Visit * Reason Comments Arthritis Encounter Details Date Type Department Care Team (Late st Contact Info) Description 09/14/2014 9:15 AM EST [place] [phone] Shola Whitlock, [facility] [place] [address] Ankylosing spondylitis of cervical region Discharge Disposition: [...] associated Ankylosing Spondylitis - Currently on Humira [id number] and SSZ - Symptoms of cervical and [...] 2:00 PM EDT Appointment Non-[place] [address] Luis Alfredo Velazquez MD [facility] [place] [address] 07/02/2024 4:00 PM EDT Office Visit Cardiology at [address] [address] Mars Green PA [facility] [place] [address] 07/02/2024 4:40 PM EDT Office Visit Cardiology at [address] [address] Luis Alfredo Velazquez MD [facility] [place] [place] [address] 07/18/2024 9:00 AM EST Hospital Encounter Non-[place] [phone] Arrived 07/27/2024 3:30 PM EST Office [place] [address] Gabe Fong MD [facility] [place] [address] 12/07/2024 2:30 PM EDT TH Visit (TeleHealth) [place] [address] Rosemarie Morrow APRN [facility] [place] [address] documented as of this encounter Procedures Procedure [...] of cervical region COMPREHENSIVE METABOLIC PANEL Routine 09/14/2014 10:12 AM EST Ankylosing spondylitis of cervical region documented in this encounter Results * Differential, Automated (09/14/2014 10:12 AM EST) Neutrophil % 54.5 % CERNER MILLENNIUM Neutrophil Absolute 3.93 1.50 - 6.30 x10(3)/mcL CERNER MILLENNIUM Lymph % 37.1 % CERNER MILLENNIUM Lymphocytes Abs 2.7 1.0 - 3.6 x10(3)/mcL CERNER MILLENNIUM Monocyte % 7.1 % CERNER MILLENNIUM Monocyte Abs 0.5 0.2 - 1.0 x10(3)/mcL CERNER MILLENNIUM Eos % 0.8 % CERNER MILLENNIUM Eosinophils Abs 0.1 0.0 - 0.5 x10(3)/mcL CERNER MILLENNIUM Basophil % 0.4 % CERNER MILLENNIUM Baso Absolute 0.0 0.0 [...] Immature Gran Absolute 0.01 0.00 - 0.05 x10(3)/mcL CERNER MILLENNIUM Blood specimen (specimen) 09/14/2014 10:12 AM EST 09/14/2014 10:20 AM EST Narrative Resulting Agency Comment Spec In Lab Brittani Martinez DO HEMATOLOGY ORDER EDUAR CERNER MILLENNIUM * (ABNORMAL) Hemogram (09/14/2014 10:12 AM EST) White Blood Cell 7.2 4.0 - 10.0 x10(3)/mc L CERNER MILLENNIUM Red Blood Cell 5.33(H) 3.93 - 5.22 x10(6)/mc L CERNER MILLENNIUM Hemoglobin 16.9(H) 11.2 - 15.7 gm/dL CERNER MILLENNIUM Hematocrit 48.9(H) 34.0 - 45.0 % CERNER MILLENNIUM Mean Cell Volume 91.7 79.0 - 94.0 fL CERNER MILLENNIUM Mean Cell Hemoglobin 31.7 26.6 - 32.2 pg CERNER MILLENNIUM Mean Cell Hemoglobin Concentration 34.6 32.0 - 36.5 gm/dL CERNER MILLENNIUM Platelet 177 145 - 370 x10(3)/mc L CERNER MILLENNIUM RDW Standard Deviation 44.0 35.0 - 46.0 fL CERNER MILLENNIUM RDW coefficient of variation 13.2 10.9 - 14.4 % CERNER MILLENNIUM Mean Platelet Volume 11.5 9.0 - 12.0 fL CERNER MILLENNIUM Blood specimen (specimen) 09/14/2014 10:12 AM EST 09/14/2014 10:20 AM EST Narrative Resulting Agency Comment Spec In Lab Brittani Martinez DO HEMATOLOGY ORDER EDUAR CERNER MILLENNIUM * (ABNORMAL) Comprehensive metabolic panel (non-fasting) (09/14/2014 10:12 AM EST) [facility] Glucose 211(H) 60 - 199 mg/dL CERNER MILLENNIUM Comment:Diabetes: >=200 mg/d L plus symptoms Blood Urea Nitrogen 19(H) 8 - 18 mg/dL CERNER MILLENNIUM Creatinine 0.89 0.70 - 1.20 mg/dL CERNER MILLENNIUM Comment: Please note that the pediatric reference intervals supplied above were not validated at [facility]. Results from pediatric patients should be interpreted [...] 102 98 - 107 mmol/L CERNER MILLENNIUM Carbon Dioxide 29 22 - 31 mmol/L CERNER MILLENNIUM Anion Gap 12 5 - 15 mmol/L CERNER MILLENNIUM Calcium 10.2 8.5 - 10.5 mg/dL CERNER MILLENNIUM Protein, Total 7.9 6.4 - 8.3 gm/dL CERNER MILLENNIUM Albumin 4.3 3.2 - 5.2 gm/dL CERNER MILLENNIUM Aspartate Aminotransferase 45(H) 0 - 30 unit/L CERNER MILLENNIUM Alanine Aminotransferase 57(H) 0 - 30 unit/L CERNER MILLENNIUM Alkaline Phosphatase 117(H) 40 - 104 unit/L CERNER MILLENNIUM Bilirubin, Total 0.4 0.2 - 1.3 mg/dL CERNER MILLENNIUM Bilirubin, [...] the following links into your internet browser. [email or web address] Blood specimen (specimen) 09/14/2014 10:12 AM EST 09/14/2014 10:20 AM EST Narrative Resulting Agency Comment Spec In Lab Brittani Martinez DO CHEMISTRY [facility] LILIAM * High Sensitivity CRP (09/14/2014 10:12 AM EST) C-Reactive Protein High Sensitivity 2.4 mg/L CERNER MILLENNIUM Comment: Interpretations: 1) [...] Lab Brittani Martinez DO CHEMISTRY ORDERA BLES TYSHAWN RICKETTS * Sedimentation rate (09/14/2014 10:12 AM EST) Sedimentation Rate Automated 6 0 - 20 mm/hr CERNER MILLENNIUM Blood specimen (specimen) 09/14/2014 10:12 AM EST 09/14/2014 10:20 AM EST Narrative Resulting Agency Comment Spec In Lab Brittani Martinez DO HEMATOLOGY ORDER EDUAR Performing Organization Address City/[facility]/ZIP Co de Phone Number [employer] documented in this encounter Visit Diagnoses Diagnosis Ankylosing spondylitis of cervical region Ankylosing spondylitis documented in this encounter Care Teams Range Aid Relationship Specialty Start Date End Date Marcio Carranza MD [address] [place] [address] PCP - General 08/07/10 11/10/17 documented as of this encounter
--- OUTSIDE RECORDS SUMMARY | 2024-06-14 15:34 | XMS_ITS | Encounter Summary ---
Author Organization [facility] Address [facility] [place] [address] Care Team Providers Care Police Surgeon Name Role Phone Marcio Carranza MD Primary Care Provider +1 [phone] Encounter Details Date Type Department Care Team (Late st Contact Info) Description 04/20/2014 Telephone Dermatology at [facility] [address] [place] [phone] July Pack MD [facility] DR AL[address] [place] [address] Social History Tobacco Use Types Packs/Day Years [...] significant swelling. Patient aware to contact on-call engineer exhauster tonight if she worsens. MALI DUPREE LPN [...] 2:00 PM EDT Appointment Non-[place] [address] Luis Alfredo Velazquez MD [facility] [place] [address] 07/02/2024 4:00 PM EDT Office Visit Cardiology at [address] [place] [facility] [place] [address] 07/02/2024 4:40 PM EDT Office [place] [address] Luis Alfredo Velazquez MD [facility] [place] [address] 07/18/2024 9:00 AM EST Hospital Encounter Non-Invasive Cardiology Lab [address]1000 Arrived 07/27/2024 3:30 PM EST Office [place] [address] Gabe Fong MD [facility] [address] 12/07/2024 2:30 PM EDT TH Visit (TeleHealth) Gastroenterology at [place] [phone] Rosemarie Morrow APRN [facility] [place] [address] documented as of this encounter Visit Diagnoses Not on filedocumented in this encounter Care Teams Police Surgeon Relationship Specialty Start Date End Date Marcio Carranza MD [address] [place] [address] PCP - General 08/07/10 11/10/17 documented as of this encounter
--- OUTSIDE RECORDS SUMMARY | 2024-06-14 15:34 | XMS_ITS | Encounter Summary ---
Author Organization [facility] [place] [address] Care Team Providers Care Powerhouse Mechanic Helper Name Role Phone Marcio Carranza MD Primary Care Provider +1 -[phone] Reason for Visit * Reason Comments Follow-up Encounter Details Date Type Department Care Team (Late st Contact Info) Description 08/19/2011 2:45 PM EST [place] [phone] Eden Reynoso MD [address] [place] [address] [place] [address] Spondylitis (Primary Dx) Discharge Disposition: Home Social [...] which she sees Dr. Chan here at [facility]. She reports that over the past six [...] PM EDT Appointment Non-Invasive [place] [phone] Luis Alfredo Velazquez MD [facility] [place] [address] 07/02/2024 4:00 PM EDT Office Visit Cardiology at [address] [phone] Mars Green PA [facility] [place] [address] 07/02/2024 4:40 PM EDT Office Visit Cardiology at [address] [phone] Luis Alfredo Velazquez MD [facility] [place] [address] 07/18/2024 9:00 AM EST Hospital Encounter Non-Invasive [place] [address] Arrived 07/27/2024 3:30 PM EST Office [place] [address] Gabe Fong MD [facility] [place] [address] 12/07/2024 2:30 PM EDT TH Visit (TeleHealth) [place] [address] Rosemarie Morrow, BOX TOE CUTTER [facility] [place] [address] documented as of this encounter Visit Diagnoses Diagnosis Spondylitis- Primary Unspecified inflammatory spondylopathy documented in this encounter Care Teams Powerhouse Mechanic Helper Relationship Specialty Start Date End Date Marcio Carranza MD [address] [place] [address] PCP - General 08/07/10 11/10/17 documented as of this encounter
--- OUTSIDE RECORDS SUMMARY | 2024-06-14 15:34 | XMS_ITS | Encounter Summary ---
Author Organization [facility] [place] [address] Care Team Providers Care Pumper Gager Apprentice Name Role Phone Marcio Carranza MD Primary Care Provider [phone] [phone] Reason for Visit * Reason Comments Follow-up Encounter Details Date Type Department Care Team (Late st Contact Info) Description 08/19/2011 4:30 PM EST Follow-Up [place] [phone] Marc Chan MD [facility] [place] [address] MÉNDEZ (nonalcoholic steatohepatitis) (Primary Dx); Lipid disorder [...] - 08/19/2011 5:25 PM EST Welcome to Aventeon, your secure online access to your electronic medical record at [facility]. Using Aventeon you will be able to send messages to your providers, view your test results, renew prescriptions, schedule appointments, and much more. Follow these instructions to enter your personal Aventeon account for the first time: 1. Start your internet browser. Go to [email or web address] [email or web address] Edusoft and click on the Aventeon link. 2. Click SIGN UP NOW to go to the NEW MEMBER SIGN UP page. 3. Enter your Aventeon Access Code exactly as it appears below. (You will not need this access code after you have completed the sign-up process.) ?? Your Aventeon Access Code: [email or web address] ?? Expires: 10/03/11 05:25 PM ?? IMPORTANT: This Access Code will on the above mentioned date. If you do not sign up before this date, you will need to request a new Access Code number. 4. Enter your Date of (mm/dd/yyyy) and zip code click SUBMIT to go to the next page. 5. Create a Aventeon identification (ID). This will be your Aventeon login ID and cannot be changed, so [...] know when new information is available in Aventeon. 9. Click SIGN UP to complete the process. You can now view your electronic medical record. If you have any questions about myD-H or your Access Code, please call for [place], for [place] or for [place]. If you need technical support, please e-mail [email or web address]. Remember, myD-H is NOT for urgent needs! Always dial 911 for medical emergencies. documented in this encounter Progress Notes * Marc Chan MD - 08/19/2011 5:23 PM EST Gastroenterology and Hepatology Clinic Provider: Marc Chan MD ([id number]) Referral Doctor: Marcio Carranza MD [facility] [phone] Al[place] [facility] [place] [address] Problem List: 1. MÉNDEZ (stage 2 in [...] erythema, no jaundice Impression and Plan: Ms. iKm Funes is a 51 y/o female with [...] conclusion of the visit. Marc Chan MD Painter Chassismaterial cutter & Director of End Stage Liver Care Division of Gastroenterology and Hepatology tel: fax: [email or web address] documented in this encounter Plan of Treatment Upcoming Encounters Date Type Department Care Team (Late st Contact Info) Description 07/02/2024 2:00 PM EDT Appointment Non-[place] [phone] Luis Alfredo Velazquez MD [facility] [place] [address] 07/02/2024 4:00 PM EDT Office Visit Cardiology at [address]1000 [place] [facility] [place] [address] 07/02/2024 4:40 PM EDT Office Visit Cardiology at [address]1000 Luis Alfredo Velazuqez MD [facility] [place] [address] 07/18/2024 9:00 AM EST Hospital Encounter Non-Invasive Cardiology Lab [address]1000 Arrived 07/27/2024 3:30 PM EST Office Visit Rheumatology at [place] [address] Gabe Fong MD [facility] [place] [address] 12/07/2024 2:30 PM EDT TH Visit (TeleHealth) Gastroenterology at [place] [phone] Rosemarie Morrow APRN [facility] [place] [address] documented as of this encounter Procedures Procedure Name Priority Date/Time Associated Diagnosis Comments TSH Routine 08/19/2011 5:44 PM EST HEMOGLOBIN A1C Routine 08/19/2011 5:44 PM EST LIPID PANEL (REFLEX DIRECT LDL) Routine 08/19/2011 5:44 PM EST COMPREHENSIVE METABOLIC PANEL Routine 08/19/2011 5:44 PM EST documented in this encounter Results * TSH (08/19/2011 5:44 PM EST) Thyroid Stimulating Hormone 1.31 0.27 - 4.20 mcIU/mL [facility] Blood specimen (specimen) 08/19/2011 5:44 PM EST 08/19/2011 5:48 PM EST Marc Chan MD CHEMISTRY ORDERABLES [facility] * (ABNORMAL) LIPID PANEL (FASTING) (08/19/2011 5:44 PM EST) Cholesterol, Total 191 <=199 mg/dL [facility] Comment: Recommendations of the NCEP Adult Treatment Panel for the following risk cutoff thresholds for the [place] population: Desirable: <200 mg/dL Borderline High: 200-239 mg/dL High: > or = 240 mg/dL Triglyceride 250(H) <=149 mg/dL [facility] Comment: Reference Range: Normal triglycerides: ??<150 mg/dL Borderline high: ??150-199 mg/dL High: ??200-499 mg/dL Very high: ??>vs=851 mg/dL ABRAHAM 2001; 285(19):9704-5893 HDL Cholesterol 52 >=40 mg/dL [facility] MILLBANNERIUM Comment: Reference range: ??Low HDL: ?? < 40 mg/dL ??Normal: ?40-60 mg/dL ??Desirable: > 60 mg/dL ABRAHAM 2001; 285(19):1472-1655 LDL Cholesterol 89 <=99 mg/dL [facility] MILLBANNERIUM Comment: Reference range: ?? Optimal: ?<100 mg/dL ?? Near Optimal/Above Optimal: ?? 100-129 mg/dL ?? Borderline high: ?130-159 mg/dL ?? High: ? 160-189 mg/dL ?? Very high: ?>ji=027 mg/dL ABRAHAM 2001: 285(19):7525-7296 Cholesterol/HDL Ratio 3.7 ratio [facility] Comment: A Cholesterol to HDL ratio below 4:1 is desirable. ??Studies suggest that increased CAD risk occurs at ratios above 5 for females and above 6 for men. ? [place] Heart Association ??(http://www.americanheart.org) ? Aleta Int Med, 1994; 121:641 ? AM J Med, 1998; 105(1A):48S Blood specimen (specimen) 08/19/2011 5:44 PM EST 08/19/2011 5:48 PM EST Marc Chan MD CHEMISTRY ORDERABLES [facility] * HEMOGLOBIN A1C (08/19/2011 5:44 PM EST) Hemoglobin A1c 5.6 4.3 - 6.1 % [facility] Estimated Average Glucose 114 mg/dL [facility] Comment: eAG equivalents for HbA1c percentages: [...] into estimated average glucose values. ??Diabetes Care 2008:31(8):1173-5076. Blood specimen (specimen) 08/19/2011 5:44 PM EST 08/19/2011 5:48 PM EST Marc Chan MD CHEMISTRY ORDERABLES CERNER MILLENNIUM * (ABNORMAL) COMPREHENSIVE METABOLIC PANEL (NON-FASTING) (08/19/2011 5:44 PM EST) Glucose 97 60 - 199 mg/dL CERNER MILLENNIUM [...] 104 98 - 107 mmol/L CERNER MILLENNIUM Carbon Dioxide 32(H) 22 - 31 mmol/L CERNER MILLENNIUM Anion Gap 7 5 - 15 mmol/L CERNER MILLENNIUM Calcium 10.2 8.5 - 10.5 mg/dL CERNER MILLENNIUM Protein, Total 8.4(H) 6.4 - 8.3 gm/dL CERNER MILLENNIUM Albumin 4.5 3.2 - 5.2 gm/dL CERNER MILLENNIUM Aspartate Aminotransferase 53(H) 0 - 30 unit/L CERNER MILLENNIUM Alanine Aminotransferase 67(H) 0 - 30 unit/L CERNER MILLENNIUM Alkaline Phosphatase 115(H) 40 - 104 unit/L CERNER MILLENNIUM Bilirubin, Total 0.4 0.2 - 1.3 mg/dL CERNER MILLENNIUM Bilirubin, Direct 0.1 0.0 - 0.3 mg/dL CERNER MILLENNIUM Est Glomerular Filtration Rate 60 >=60 CERNER MILLENNIUM Comment: The National [...] metabolism documented in this encounter Care Teams Pumper Gager Apprentice Relationship Specialty Start Date End Date Marcio Carranza MD [address] [place] [address] PCP - General 08/07/10 11/10/17 documented as of this encounter
--- OUTSIDE RECORDS SUMMARY | 2024-06-14 15:34 | XMS_ITS | Encounter Summary ---
Author Organization [facility] [place] [address] Care Team Providers Care Enamel Dipper Name Role Phone Marcio Carranza MD Primary Care Provider [phone] Encounter Details Date Type Department Care Team (Late st Contact Info) Description 03/08/2011 [place] [address] Asmita Green RN Social History [...] 2:00 PM EDT Appointment Non-[place] [address] Luis Alfredo Velazquez MD [facility] [place] [address] 07/02/2024 4:00 PM EDT Office Visit Cardiology at [place] [address] [address] [place] [facility] [place] [address] 07/02/2024 4:40 PM EDT Office Visit Cardiology at [place] [address] Luis Alfredo Velazquez MD [facility] [place] [address] 07/18/2024 9:00 AM EST Hospital Encounter Non-Invasive [place] [address] Arrived 07/27/2024 3:30 PM EST Office Visit Rheumatology at [place] [address] Gabe Fong MD [facility] [place] [address] 12/07/2024 2:30 PM EDT TH Visit (TeleHealth) [place] [address] Rosemarie Morrow APRN [facility] [place] [address] documented as of this encounter Visit Diagnoses Not on filedocumented in this encounter Care Teams Enamel Dipper Relationship Specialty Start Date End Date Marcio Carranza MD [address] [place] [address] PCP - General 08/07/10 11/10/17 documented as of this encounter
--- OUTSIDE RECORDS SUMMARY | 2024-06-14 15:34 | XMS_ITS | Encounter Summary ---
Author Organization [facility] [place] [address] Care Team Providers Care Automobile Assembly Supervisor Name Role Phone Marcio Carranza MD Primary Care Provider [phone] [phone] Reason for Visit * Reason Onset Date Comments Medication Refill 04/06/2015 Encounter Details Date Type Department Care Team (Late st Contact Info) Description 04/06/2015 Refill [place] [address] Rian Castro MD [facility] [address] Ankylosing spondylitis of cervical region Social History [...] 2:00 PM EDT Appointment Non-Invasive [place] [address] Luis Alfredo Velazquez MD [facility] [place] [address] 07/02/2024 4:00 PM EDT Office Visit Cardiology at [place] [address] [address] [place] [facility] [place] [address] 07/02/2024 4:40 PM EDT Office Visit Cardiology at [place] [address] Luis Alfredo Velazquez MD [facility] [place] [address] 07/18/2024 9:00 AM EST Hospital Encounter Non-Invasive Cardiology Lab [place] [address] Arrived 07/27/2024 3:30 PM EST Office Visit Rheumatology at [place] [address] Gabe Fong MD [facility] [place] [address] 12/07/2024 2:30 PM EDT TH Visit (TeleHealth) Gastroenterology at [place] [address] Rosemarie Morrow, SKIP [facility] [place] [address] documented as of this encounter Visit Diagnoses Diagnosis Ankylosing spondylitis of cervical region Ankylosing spondylitis documented in this encounter Care Teams Automobile Assembly Supervisor Relationship Specialty Start Date End Date Marcio Carranza MD [address] [place] [address] PCP - General 08/07/10 11/10/17 documented as of this encounter
--- OUTSIDE RECORDS SUMMARY | 2024-06-14 15:34 | XMS_ITS | Encounter Summary ---
Author Organization [facility] Address [facility] [place] [address] Care Team Providers Care Staff Psychiatrist Name Role Phone Marcio Carranza MD Primary Care Provider +1 -[phone] Encounter Details Date Type Department Care Team (Latest Contact Info) Description 08/24/2015 4:51 PM EST - 08/24/2015 11:59 PM [facility] Encounter XRay at [address] [place]IA ALEJANDRA [place] [address] Brittani Martinez, [facility] [place] [address] Ankylosing spondylitis Discharge Disposition: Home Social History [...] 14 days. 2 kit 6 04/06/2015 12/04/2015 METOPROLOL SUCCINATE ORAL Take 100 mg by [...] PM EDT Appointment Non-Invasive Cardiology Lab [address] Luis Alfredo Velazquez MD [facility] [place] [address] 07/02/2024 4:00 PM EDT Office Visit Cardiology at [place] [address] [place] [facility] [place] [address] 07/02/2024 4:40 PM EDT Office [place] [address] Luis Alfredo Velazquez MD [facility] [place] [address] 07/18/2024 9:00 AM EST Hospital Encounter Non-Invasive Cardiology Lab [place] [address] Arrived 07/27/2024 3:30 PM EST Office Visit Rheumatology at [place] [address] Gabe Fong MD [facility] [place] [address] 12/07/2024 2:30 PM EDT TH Visit (TeleHealth) Gastroenterology at [address] Rosemarie Morrow APRN [facility] [place] [address] documented as of this encounter Procedures Procedure [...] a total left hip prosthesis is noted. rBittani Martinez DO IMG DX ORDERABLE S documented in this encounter Visit Diagnoses Diagnosis Ankylosing spondylitis documented in this encounter Care Teams Staff Psychiatrist Relationship Specialty Start Date End Date Marcio Carranza MD [address] [place] [address] PCP - General 08/07/10 11/10/17 documented as of this encounter
--- OUTSIDE RECORDS SUMMARY | 2024-06-14 15:34 | XMS_ITS | Encounter Summary ---
Author Organization [facility] [place] [address] Care Team Providers Care Bank Vault Custodian Name Role Phone Marcio Carranza MD Primary Care Provider +1 -[phone] Reason for Visit * Reason Comments Medication Refill Encounter Details Date Type Department Care Team (Late st Contact Info) Description 05/03/2014 [place] [address] Eden Reynoso MD [address] [place] [address] [place] [address] Social History Tobacco Use Types Packs/Day Years [...] EDT Appointment Non-Invasive Cardiology Lab [place] [phone] Luis Alfredo Velazquez MD [facility] [place] [address] 07/02/2024 4:00 PM EDT Office Visit Cardiology at [place] [phone] [place] [facility] [place] [address] 07/02/2024 4:40 PM EDT Office Visit Cardiology at [place] [phone] Luis Alfredo Velazquez MD [facility] [place] [address] 07/18/2024 9:00 AM EST Hospital Encounter Non-Invasive Cardiology Lab [place] [phone] Arrived 07/27/2024 3:30 PM EST Office Visit Rheumatology at [place] [phone] Gabe Fong MD [facility] [place] [address] 12/07/2024 2:30 PM EDT TH Visit (TeleHealth) [place] [address] Rosemarie Morrow APRN [facility] [place] [address] documented as of this encounter Visit Diagnoses Not on filedocumented in this encounter Care Teams Bank Vault Custodian Relationship Specialty Start Date End Date Marcio Carranza MD [address] [place] [address] PCP - General 08/07/10 11/10/17 documented as of this encounter
--- OUTSIDE RECORDS SUMMARY | 2024-06-14 15:34 | XMS_ITS | Encounter Summary ---
Author Organization [facility] Address [facility] [place] [address] Care Team Providers Care Forms Builder Name Role Phone Marcio Carranza MD Primary Care Provider +1 [phone] Encounter Details Date Type Department Care Team (Latest Contact Info) Description 04/22/2012 2:58 PM EDT - 04/22/2012 11:59 PM EDT Hospital Encounter [place]Ray [place] [facility] [place] [phone] CLINIC, Marcio Hoyos MD [address] [place] [address] Discharge Disposition: Home Social History [...] mg tablet 1000MG, PO, Once daily 10/15/2010 fluticasone (FLOVENT) 110 mcg/Actuation inhaler Inhale 1-2 puffs into the lungs daily. 02/21/2011 10/07/2023 adalimumab (HUMIRA) 40 mg/0.8 mL injectionIndication s:Spondylitis [...] 2:00 PM EDT Appointment Non-Invasive Cardiology Lab [facility] [place] [address] Luis Alfredo Velazquez MD [facility] [place] [address] 07/02/2024 4:00 PM EDT Office [place] [address] [place] [facility] [place] [address] 07/02/2024 4:40 PM EDT Office Visit Cardiology at [address]1000 Luis Alfredo Velazquez MD [facility] [place] [address] 07/18/2024 9:00 AM EST Hospital Encounter Non-Invasive Cardiology Lab [place] [address] Arrived 07/27/2024 3:30 PM EST Office Visit Rheumatology at [place] [address] Gabe Fong MD [facility] [place] [address] 12/07/2024 2:30 PM EDT TH Visit (TeleHealth) Gastroenterology at [place] [address] Rosemarie Morrow, SKIP [facility] [place] [address] documented as of this encounter Procedures Procedure [...] measurements and plots are available in e Loomia under the imaging tab. Procedure Note Dimple [...] in e DHunder the imaging tab. Ivelisse Caryn [employer] IMG DEXA ORDERABLES documented in this encounter Visit Diagnoses Not on filedocumented in this encounter Care Teams Forms Builder Relationship Specialty Start Date End Date Marcio Carranza MD [address] [place] [address] PCP - General 08/07/10 11/10/17 documented as of this encounter
--- OUTSIDE RECORDS SUMMARY | 2024-06-14 15:34 | XMS_ITS | Encounter Summary ---
[place] [address] Care Team Providers Care Sales Representative Church Furniture Name Role Phone Marcio Carranza MD Primary Care Provider +1 [phone] Encounter Details Date Type Department Care Team (Late st Contact Info) Description 03/01/2015 10:15 AM EDT [place] [phone] Shola Whitlock [facility] [place] [address] Ankylosing spondylitis Discharge Disposition: Home Social History [...] associated Ankylosing Spondylitis - Currently on Humira [id number] and SSZ - Symptoms of cervical and [...] 2:00 PM EDT Appointment Non-[place] [address] Luis Alfredo Velazquez MD [facility] [place] [address] 07/02/2024 4:00 PM EDT Office Visit Cardiology at [address] [address] [place], [place] [facility] [address] [place], [place] [address] 07/02/2024 4:40 PM EDT Office Visit Cardiology at [address] [address] Luis Alfredo Velazquez MD [facility] [place] [place] [address] 07/18/2024 9:00 AM EST Hospital Encounter Non-[place]vasive [place] [phone] Arrived 07/27/2024 3:30 PM EST Office [place] [address] Gabe Fong MD [facility] [place] [address] 12/07/2024 2:30 PM EDT TH Visit (TeleHealth) [place] [address] Rosemarie Morrow APRN [facility] [place] [address] documented as of this encounter Procedures Procedure [...] AM EDT Ankylosing spondylitis COMPREHENSIVE METABOLIC PANEL Routine 03/01/2015 11:48 AM EDT Ankylosing spondylitis documented in this encounter Results * Differential, Automated (03/01/2015 11:48 AM EDT) Neutrophil % 45.7 % CERNER MILLENNIUM Neutrophil Absolute 3.09 1.50 - 6.30 x10(3)/mcL CERNER MILLENNIUM Lymph % 43.6 % CERNER MILLENNIUM Lymphocytes Abs 2.9 1.0 - 3.6 x10(3)/mcL CERNER MILLENNIUM Monocyte % 8.9 % CERNER MILLENNIUM Monocyte Abs 0.6 0.2 - 1.0 x10(3)/mcL CERNER MILLENNIUM Eos % 1.5 % CERNER MILLENNIUM Eosinophils Abs 0.1 0.0 - 0.5 x10(3)/mcL CERNER MILLENNIUM Basophil % 0.3 % CERNER MILLENNIUM Baso Absolute 0.0 0.0 [...] differential will be performed. Immature Gran Absolute 0.00 0.00 - 0.05 x10(3)/mcL CERNER MILLENNIUM Blood specimen (specimen) 03/01/2015 11:48 AM EDT 03/01/2015 12:20 PM EDT Narrative Resulting Agency Comment Spec In Lab Chepe Jackson MD HEMATOLOGY ORDERABLE S CERNER MILLENNIUM * (ABNORMAL) Hemogram (03/01/2015 11:48 AM EDT) White Blood Cell 6.8 4.0 - 10.0 x10(3)/mc L CERNER MILLENNIUM Red Blood Cell 5.16 3.93 - 5.22 x10(6)/mc L CERNER MILLENNIUM Hemoglobin 16.4(H) 11.2 - 15.7 gm/dL CERNER MILLENNIUM Hematocrit 47.8(H) 34.0 - 45.0 % CERNER MILLENNIUM Mean Cell Volume 92.6 79.0 - 94.0 fL CERNER MILLENNIUM Mean Cell Hemoglobin 31.8 26.6 - 32.2 pg CERNER MILLENNIUM Mean Cell Hemoglobin Concentration 34.3 32.0 - 36.5 gm/dL CERNER MILLENNIUM Platelet 193 145 - 370 x10(3)/mc L CERNER MILLENNIUM RDW Standard Deviation 44.8 35.0 - 46.0 fL CERNER MILLENNIUM RDW coefficient of variation 13.3 10.9 - 14.4 % CERNER MILLENNIUM Mean Platelet Volume 11.4 9.0 - 12.0 fL CERNER MILLENNIUM Blood specimen (specimen) 03/01/2015 11:48 AM EDT 03/01/2015 12:20 PM EDT Narrative Resulting Agency Comment Spec In Lab Chepe Jackson MD HEMATOLOGY ORDERABLE S CERNER MILLENNIUM * (ABNORMAL) Comprehensive metabolic panel (non-fasting) (03/01/2015 11:48 AM EDT) [facility] Glucose 137 65 - 199 mg/dL CERNER MILLENNIUM Comment:Diabetes: >=200 mg/d L plus symptoms Blood Urea Nitrogen 18 8 - 18 mg/dL CERNER MILLENNIUM Creatinine 0.85 0.70 - 1.20 mg/dL CERNER MILLENNIUM Comment: Please note that the pediatric reference intervals supplied above were not validated at [facility]. Results from pediatric patients [...] 10.4 8.5 - 10.5 mg/dL CERNER MILLENNIUM Protein, Total 7.8 6.1 - 8.0 gm/dL CERNER MILLENNIUM Albumin 4.5 3.2 - 5.2 gm/dL CERNER MILLENNIUM Aspartate Aminotransferase 51(H) 0 - 30 unit/L CERNER MILLENNIUM Alanine Aminotransferase 64(H) 0 - 30 unit/L CERNER MILLENNIUM Alkaline Phosphatase 82 40 - 104 unit/L CERNER MILLENNIUM Bilirubin, [...] the following links into your internet browser. [email or web address] Blood specimen (specimen) 03/01/2015 11:48 AM EDT 03/01/2015 12:20 PM EDT Narrative Resulting Agency Comment Spec In Lab Chepe Jackson MD CHEMISTRY ORDERABLES [facility] * High Sensitivity CRP (03/01/2015 11:48 AM EDT) [facility] C-Reactive Protein High Sensitivity 2.0 mg/L CERNER MILLENNIUM Comment: Interpretations: 1) [...] Jackson MD CHEMISTRY ORDERABLES Performing Organization Address [facility] Co de Phone Number [employer] * Sedimentation rate (03/01/2015 11:48 AM EDT) Sedimentation Rate Automated 6 0 - 20 mm/hr CERNER MILLENNIUM Blood specimen (specimen) 03/01/2015 11:48 AM EDT 03/01/2015 12:20 PM EDT Narrative Resulting Agency Comment Spec In Lab Chepe Jackson MD HEMATOLOGY ORDERABLE S Performing Organization Address [facility] Co de Phone Number [employer] documented in this encounter Visit Diagnoses Diagnosis Ankylosing spondylitis documented in this encounter Care Teams Sales Representative [employer] Furn[employer] Relationship Specialty Start Date End Date Marcio Carranza MD [address] [place] [address] PCP - General 08/07/10 11/10/17 documented as of this encounter
--- OUTSIDE RECORDS SUMMARY | 2024-06-14 15:34 | XMS_ITS | Encounter Summary ---
[place] [address] Care Team Providers Care Healthcare Administration Intern Name Role Phone Marcio Carranza MD Primary Care Provider +1 -[phone] Reason for Visit * Reason Comments Medication Refill Encounter Details Date Type Department Care Team (Late st Contact Info) Description 04/22/2013 [place] [address] Eden Reynoso MD [address] [place] [address] [place] [address] Social History Tobacco Use Types Packs/Day Years [...] 2:00 PM EDT Appointment Non-[place] [address] Luis Alfredo Velazquez MD [facility] [address] 07/02/2024 4:00 PM EDT Office Visit Cardiology at [place] [address] [place] [facility] [place] [address] 07/02/2024 4:40 PM EDT Office Visit Cardiology at [place] [address] Luis Alfredo Velazquez MD [facility] [place] [address] 07/18/2024 9:00 AM EST Hospital Encounter Non-Invasive Cardiology Lab [place] [address] Arrived 07/27/2024 3:30 PM EST Office Visit Rheumatology at [place] [address] Gabe Fong MD [facility] [place] [address] 12/07/2024 2:30 PM EDT TH Visit (TeleHealth) Gastroenterology at [place] [address] Rosemarie Morrow, SKIP [facility] [place] [address] documented as of this encounter Visit Diagnoses Not on filedocumented in this encounter Care Teams Healthcare Administration Intern Relationship Specialty Start Date End Date Marcio Carranza MD [address] [place] [address] PCP - General 08/07/10 11/10/17 documented as of this encounter
--- OUTSIDE RECORDS SUMMARY | 2024-06-14 15:34 | XMS_ITS | Encounter Summary ---
Author Organization [facility] Address [facility] [place] [address] Care Team Providers Care Helicopter Specialist Name Role Phone Marcio Carranza MD Primary Care Provider +1 -[phone] Encounter Details Date Type Department Care Team (Late st Contact Info) Description 06/03/2014 Telephone Dermatology at [facility] [address] [place] [address] July Pack MD [facility] [place] [address] Social History Tobacco Use Types Packs/Day Years [...] 2:00 PM EDT Appointment Non-[place] [phone] Luis Alfredo Velazquez MD [facility] [place] [address] 07/02/2024 4:00 PM EDT Office Visit Cardiology at [address] [phone] [place] PA [facility] [address] [place], [place] [address] 07/02/2024 4:40 PM EDT Office Visit Cardiology at [address] [phone] Luis Alfredo Velazquez MD [facility] [place] [address] 07/18/2024 9:00 AM EST Hospital Encounter Non-[place] [address] Arrived 07/27/2024 3:30 PM EST Office [place] [address] Gabe Fong MD [facility] [place] [address] 12/07/2024 2:30 PM EDT TH Visit (TeleHealth) [place] [address] Rosemarie Morrow APRN [facility] [place] [address] documented as of this encounter Visit Diagnoses Not on filedocumented in this encounter Care Teams Helicopter Specialist Relationship Specialty Start Date End Date Marcio Carranza MD [address] [place] [address] PCP - General 08/07/10 11/10/17 documented as of this encounter
--- OUTSIDE RECORDS SUMMARY | 2024-06-14 15:34 | XMS_ITS | Encounter Summary ---
[place] [address] Care Team Providers Care Hospice Spiritual Care Coordinator Name Role Phone Marcio Carranza MD Primary Care Provider +1 -[phone] Reason for Visit * Reason Onset Date Comments Medication Refill 04/02/2012 Encounter Details Date Type Department Care Team (Late st Contact Info) Description 04/02/2012 Ref[place] [address] Eden Reynoso MD [address] [place] [address] [place] [address] Spondylitis Social History Tobacco Use Types Packs/Day [...] 2:00 PM EDT Appointment Non-Invasive [place] [address] Luis Alfredo Velazquez MD [facility] [place] [address] 07/02/2024 4:00 PM EDT Office [place] [address] [place] [facility] [place] [address] 07/02/2024 4:40 PM EDT Office [place] [address] Luis Alfredo Velazquez MD [facility] [place] [address] 07/18/2024 9:00 AM EST Hospital Encounter Non-[place] [address] Arrived 07/27/2024 3:30 PM EST Office Visit Rheumatology at [place] [address] Gabe Fong MD [facility] [place] [address] 12/07/2024 2:30 PM EDT TH Visit (TeleHealth) [place] [address] Rosemarie Morrow, SKIP [facility] [place] [address] documented as of this encounter Visit Diagnoses Diagnosis Spondylitis Unspecified inflammatory spondylopathy documented in this encounter Care Teams Hospice Spiritual Care Coordinator Relationship Specialty Start Date End Date Marcio Carranza MD [address] [place] [address] PCP - General 08/07/10 11/10/17 documented as of this encounter
--- OUTSIDE RECORDS SUMMARY | 2024-06-14 15:34 | XMS_ITS | Encounter Summary ---
Author Organization [facility] [place] [address] Care Team Providers Care Public Health Training Assistant Name Role Phone Marcio Carranza MD Primary Care Provider +1 -[phone] Reason for Visit * Reason Onset Date Comments Medication Refill 09/15/2011 Encounter Details Date Type Department Care Team (Late st Contact Info) Description 09/15/2011 Refill [place] [address] Yaquelin Chan MD [facility] [place] [address] Lipid disorder Social History Tobacco Use Types [...] 09/19/2011 9:14 AM ESTFrom: KIM PEREZ To: Yaquelin Chan MD Sent: Kayy Sep 15, 2011 10:13 AM Subject: Medication Renewal Request Original authorizing provider: MD Phuong DIASrochelle Graff Shantel would like a refill of the following medications: simvastatin (ZOCOR) 10 mg tablet [YAQUELIN CHAN MD] Preferred pharmacy: [facility] [id number] [facility] [address] [place] [address] Comment: I need Actigall 300 mg. renewed please. It is not listed above for renewal. Kim S[address] [place] [address], [place] [phone] 1960 documented in this encounter Plan of Treatment Upcoming Encounters Date Type Department Care Team (Late st Contact Info) Description 07/02/2024 2:00 PM EDT Appointment Non-[place] [address] Luis Alfredo Velazquez MD [facility] [place] [address] 07/02/2024 4:00 PM EDT Office Visit Cardiology at [address] [phone] [place] PA [facility] [place] [address] 07/02/2024 4:40 PM EDT Office Visit Cardiology at [address] [phone] Luis Alfredo Velazquez MD [facility] [place] [address] 07/18/2024 9:00 AM EST Hospital Encounter Non-Invasive [place] [address] Arrived 07/27/2024 3:30 PM EST Office [place] [address] Gabe Fong MD [facility] [place] [address] 12/07/2024 2:30 PM EDT TH Visit (TeleHealth) [place] [address] Rosemarie Morrow APRN [facility] [place] [address] documented as of this encounter Visit Diagnoses Diagnosis Lipid disorder Unspecified disorder of lipoid metabolism documented in this encounter Care Teams Public Health Training Assistant Relationship Specialty Start Date End Date Marcio Carranza MD [address] [place] [address] PCP - General 08/07/10 11/10/17 documented as of this encounter
--- OUTSIDE RECORDS SUMMARY | 2024-06-14 15:34 | XMS_ITS | Encounter Summary ---
Author Organization [facility] Address [facility] [place] [address] Care Team Providers Care Cutter Operator Helper Name Role Phone Marcio Carranza MD Primary Care Provider [phone] [phone] Reason for Visit * Reason Comments Skin Check Encounter Details Date Type Department Care Team (Late st Contact Info) Description 04/18/2014 2:30 PM EDT Office Visit Dermatology at [facility] [address] [place] [phone] July Pack MD [facility] [address] [place] [address] Psoriasis (Primary Dx); Candidal intertrigo Discharge Disposition: [...] July Pack MD Resident in Dermatology [facility] Patient seen and evaluated with staff seat trimmer: Ruy Neff MD Section of Dermatology [facility] documented in this encounter Plan of Treatment Upcoming Encounters Date Type Department Care Team (Late st Contact Info) Description 07/02/2024 2:00 PM EDT Appointment Non-Invasive [place] [address] Luis Alfredo Velazquez MD [facility] [place] [address] 07/02/2024 4:00 PM EDT Office Visit Cardiology at [address] [place] [facility] [place] [address] 07/02/2024 4:40 PM EDT Office Visit Cardiology at [place] [phone] Luis Alfredo Velazquez MD [facility] [place] [address] 07/18/2024 9:00 AM EST Hospital Encounter Non-Invasive [place] [address] Arrived 07/27/2024 3:30 PM EST Office Visit Rheumatology at [place] [phone] Gabe Fong MD [facility] [place] [address] 12/07/2024 2:30 PM EDT TH Visit (TeleHealth) [place] [address] Rosemarie Morrow, SKIP [facility] [place] [address] documented as of this encounter Visit Diagnoses Diagnosis Psoriasis- Primary Other psoriasis Candidal intertrigo Candidiasis of skin and nails documented in this encounter Care Teams Cutter Operator Helper Relationship Specialty Start Date End Date Marcio Carranza MD [address] [place] [address] PCP - General 08/07/10 11/10/17 documented as of this encounter
--- OUTSIDE RECORDS SUMMARY | 2024-06-14 15:34 | XMS_ITS | Encounter Summary ---
[place] [address] Care Team Providers Care Electrical Electronics Technician Name Role Phone Marcio Carranza MD Primary Care Provider [phone] Reason for Visit * Reason Onset Date Comments Medication Refill 03/17/2012 Encounter Details Date Type Department Care Team (Late st Contact Info) Description 03/17/2012 Refill [place] [address] Eden Reynoso MD [address] [place] [address] [place] [address] Social History Tobacco Use Types Packs/Day Years [...] 2:00 PM EDT Appointment [place] [address] Luis Alfredo Velazquez MD [facility] [place] [address] 07/02/2024 4:00 PM EDT Office Visit Cardiology at [place] [address] Mars Green PA [facility] [place] [address] 07/02/2024 4:40 PM EDT Office Visit Cardiology at [place] [address] Luis Alfredo Velazquez MD [facility] [place] [address] 07/18/2024 9:00 AM EST Hospital Encounter Non-Invasive Cardiology Lab [place] [address] Arrived 07/27/2024 3:30 PM EST Office Visit Rheumatology at [place] [address] Gabe Fong MD [facility] [place] [address] 12/07/2024 2:30 PM EDT TH Visit (TeleHealth) Gastroenterology at [place] [address] Rosemarie Morrow, SKIP [facility] [place] [address] documented as of this encounter Visit Diagnoses Not on filedocumented in this encounter Care Teams Electrical Electronics Technician Relationship Specialty Start Date End Date Marcio Carranza MD [address] [place] [address] PCP - General 08/07/10 11/10/17 documented as of this encounter
--- OUTSIDE RECORDS SUMMARY | 2024-06-14 15:34 | XMS_ITS | Encounter Summary ---
[place] [address] Care Team Providers Care Crane Oiler Name Role Phone Marcio Carranza MD Primary Care Provider [phone] Reason for Visit * Reason Comments Medication Refill Encounter Details Date Type Department Care Team (Late st Contact Info) Description 04/22/2013 Ref[place] [address] Eden Reynoso MD [address] [place] [address] [place] [address] Social History Tobacco Use Types Packs/Day Years [...] 2:00 PM EDT Appointment Non-[place] [address] Luis Alfredo Velazquez MD [facility] [place] [address] 07/02/2024 4:00 PM EDT Office Visit Cardiology at [place] [address] Mars Green PA [facility] [place] [address] 07/02/2024 4:40 PM EDT Office Visit Cardiology at [place] [address] Luis Alfredo Velazquez MD [facility] [place] [address] 07/18/2024 9:00 AM EST Hospital Encounter Non-Invasive Cardiology Lab [place] [address] Arrived 07/27/2024 3:30 PM EST Office Visit Rheumatology at [place] [address] Gabe Fong MD [facility] [place] [address] 12/07/2024 2:30 PM EDT TH Visit (TeleHealth) Gastroenterology at [place] [address] Rosemarie Morrow, SKIP [facility] [place] [address] documented as of this encounter Visit Diagnoses Not on filedocumented in this encounter Care Teams Crane Oiler Relationship Specialty Start Date End Date aMrcio Carranza MD [address] [place] [address] PCP - General 08/07/10 11/10/17 documented as of this encounter
--- OUTSIDE RECORDS SUMMARY | 2024-06-14 15:34 | XMS_ITS | Encounter Summary ---
Author Organization [facility] Address [facility] [place] [address] Care Team Providers Care Fiscal Assistant Name Role Phone Marcio Carranza MD Primary Care Provider [phone] Encounter Details Date Type Department Care Team (Latest Contact Info) Description 08/24/2015 4:51 PM EST - 08/24/2015 11:59 PM [facility] Hospital Encounter XRay at [address] Center [place] ALEJANDRA [place] [address] Brittani Martinez, [facility] [place] [address] Ankylosing spondylitis Discharge Disposition: Home Social History [...] 2:00 PM EDT Appointment Non-Invasive Cardiology Lab [address] Luis Alfredo Velazquez MD [facility] [place] [address] 07/02/2024 4:00 PM EDT Office Visit Cardiology at [place] [address] Mars Green PA [facility] [place] [address] 07/02/2024 4:40 PM EDT [place] [address] Luis Alfredo Velazquez MD [facility] [place] [address] 07/18/2024 9:00 AM EST Hospital Encounter Non-Invasive Cardiology Lab [place] [address] Arrived 07/27/2024 3:30 PM EST Office Visit Rheumatology at [place] [address] Gabe Fong MD [facility] [place] [address] 12/07/2024 2:30 PM EDT TH Visit (TeleHealth) Gastroenterology at [address] Rosemarie Morrow APRN [facility] [place] [address] documented as of this encounter Procedures Procedure [...] spondylitis documented in this encounter Care Teams Fiscal Assistant Relationship Specialty Start Date End Date Marcio Carranza MD [address] [place] [address] PCP - General 08/07/10 11/10/17 documented as of this encounter
--- OUTSIDE RECORDS SUMMARY | 2024-06-14 15:35 | XMS_ITS | Encounter Summary ---
Author Organization [facility] Address [address] [place] [address] Care Team Providers Care Pmp Project Manager Name Role Phone Marcio Carranza MD Primary Care Provider Unav ailable Encounter Details Date Type Department Care Team (Late st Contact Info) Description 02/03/2021 Lab Requisition [facility] Pathology & Laboratory Medicine - [address] [id number] Outr Resulting Lab, Provider Social History Tobacco [...] QUANTIFERON TB GOLD PLUS (02/02/2021 14:45 EDT) [facility] Quantiferon Interpretation Negative Negative 02/07/2021 13:59 EDT [facility] Comment: No interferon-gamma response [...] minus Nil 0.02 IU/ml 02/08/20 13:59 EDT [facility] TB2 Ag minus Nil 0.09 IU/mL 02/08/20 13:59 EDT [facility] Blood VENOUS BLOOD / Unknown 02/02/2021 14:45 EDT 02/03/2021 21:37 EDT Narrative [facility] - 02/07/2021 13:59 EDT Results were obtained with the Qiagen QuantiFERON-TB Gold Plus CASE. Provider Outr Resulting Lab CHEMISTRY & BLOOD GAS ORDERABLES [facility] [address] [place] [address] documented in this encounter Visit Diagnoses Not on filedocumented in this encounter Care Teams Pmp Project Manager Relationship Specialty Start Date End Date Marcio Carranza MD PCP - General 07/26/15 documented as of this encounter
--- OUTSIDE RECORDS SUMMARY | 2024-06-14 15:35 | XMS_ITS | Encounter Summary ---
Author Organization [place] [address] Care Team Providers Care Salvage Winder And Inspector Name Role Phone Marcio Devlin DO Primary Care Provider [phone] Encounter Details Date Type Department Care Team (Late st Contact Info) Description 03/17/2006 [place] [address] Amandeep Miles Jr., MD [facility] [place] [address] Social History Tobacco Use Types Packs/Day Years Used Date Smoking Tobacco: Never Assessed [facility] Utilities Answer Date Recorded In the past 12 months has [employer], gas, oil, or water [employer] threatened to shut off services in your [...] 2:00 PM EDT Appointment Non-[place] [address] Luis Alfredo Velazquez MD [facility] [place] [address] 07/02/2024 4:00 PM EDT Office Visit Cardiology at [address] [address] Mars Green PA [facility] [place] [address] 07/02/2024 4:40 PM EDT Office Visit Cardiology at [address] [address] Luis Alfredo Velazquez MD [facility] [place] [address] 07/18/2024 9:00 AM EST Hospital Encounter Non-[place]vasive [place] [address] Arrived 07/27/2024 3:30 PM EST [place] [address] Gabe Fong MD [facility] [place] [address] 12/07/2024 2:30 PM EDT TH Visit (TeleHealth) [place] [address] Rosemarie Morrow, SKIP [facility] [place] [address] documented as of this encounter Procedures Procedure Name Priority Date/Time Associated Diagnosis Comments SURGICAL PATHOLOGY REPORT Routine 03/17/2006 2:36 PM EDT documented in this encounter Results * Surgical Pathology Report (03/17/2006 2:36 PM EDT) Surgical Pathology Report ? Location: 3WST; 0318; B The signing [...] on filedocumented in this encounter Care Teams Salvage Winder And Inspector Relationship Specialty Start Date End Date Marcio Devlin DO [address] [place] [address] PCP - General Family Medicine 11/11/17 documented as of this encounter
--- OUTSIDE RECORDS SUMMARY | 2024-06-14 15:35 | XMS_ITS | Encounter Summary ---
Author Organization [facility] Address [facility] [place] [address] Care Team Providers Care Derrick Helper Name Role Phone Marcio Carranza MD Primary Care Provider [phone] Encounter Details Date Type Department Care Team (Late st Contact Info) Description 08/15/2010 12:30 PM EST Procedure visit [place] [address] Social History Tobacco Use Types Packs/Day Years [...] 2:00 PM EDT Appointment Non[place] [address] Luis Alfredo Velazquez MD [facility] [place] [address] 07/02/2024 4:00 PM EDT Office Visit Cardiology at [address] [address] Mars Green PA [facility] [place] [address] 07/02/2024 4:40 PM EDT Office [place] [address] Luis Alfredo Velazquez MD [facility] [place] [address] 07/18/2024 9:00 AM EST Hospital Encounter Non-Invasive Cardiology Lab [address] Arrived 07/27/2024 3:30 PM EST Office Visit Rheumatology at [place] [address] Gabe Fong MD [facility] [place] [address] 12/07/2024 2:30 PM EDT TH Visit (TeleHealth) Gastroenterology at [place] [address] Rosemarie Morrow, SKIP [facility] [place] [address] documented as of this encounter Visit Diagnoses Not on filedocumented in this encounter Care Teams Derrick Helper Relationship Specialty Start Date End Date Marcio Carranza MD [address] [place] [address] PCP - General 08/07/10 11/10/17 documented as of this encounter
--- OUTSIDE RECORDS SUMMARY | 2024-06-14 15:35 | XMS_ITS | Encounter Summary ---
Author Organization [facility] Address [facility] [place] [address] Care Team Providers Care Health Careers Instructor Name Role Phone Marcio Carranza MD Primary Care Provider [phone] Encounter Details Date Type Department Care Team (Late st Contact Info) Description 01/14/2011 Orders [place] [address] Marc Chan MD [facility] DR GASTROENTER[place] [address] Social History Tobacco Use Types Packs/Day Years [...] 2:00 PM EDT Appointment Non-Invasive [place] [address] Luis Alfredo Velazquez MD [facility] [place] [address] 07/02/2024 4:00 PM EDT Office [place] [address] Mars Green PA [facility] [place] [address] 07/02/2024 4:40 PM EDT Office Visit Cardiology at [place] [address] Luis Alfredo Velazquez MD [facility] [place] [address] 07/18/2024 9:00 AM EST Hospital Encounter Non-Invasive Cardiology Lab [place] [address] Arrived 07/27/2024 3:30 PM EST Office Visit Rheumatology at [place] [address] Gabe Fong MD [facility] [place] [address] 12/07/2024 2:30 PM EDT TH Visit (TeleHealth) Gastroenterology at [place] [address] Rosemarie Morrow, SKIP [facility] [place] [address] documented as of this encounter Visit Diagnoses Not on filedocumented in this encounter Care Teams Health Careers Instructor Relationship Specialty Start Date End Date Marcio Carranza MD [address] [place] [address] PCP - General 08/07/10 11/10/17 documented as of this encounter
--- OUTSIDE RECORDS SUMMARY | 2024-06-14 15:35 | XMS_ITS | Encounter Summary ---
Author Organization [facility] Address [address] [place] [address] Care Team Providers Care Sole Stapler Welt Name Role Phone Marcio Carranza MD Primary Care Provider Unav ailable Encounter Details Date Type Department Care Team (Late st Contact Info) Description 04/05/2021 Lab Requisition [facility] Pathology & Laboratory Medicine - [address] [address] Outr Resulting Lab, Provider Social History Tobacco [...] TB GOLD PLUS (04/04/2021 14:07 EDT) Pathologist [facility] Quantiferon Interpretation Negative Negative 04/06/2021 13:32 EDT [facility] Comment: No interferon-gamma response to [...] minus Nil 0.02 IU/ml 04/06/20 13:32 EDT [facility] TB2 Ag minus Nil 0.06 IU/mL 04/06/20 13:32 EDT [facility] Blood VENOUS BLOOD / Unknown 04/04/2021 14:07 EDT 04/05/2021 15:50 EDT Narrative [facility] - 04/06/2021 13:32 EDT Results were obtained with the Qiagen QuantiFERON-TB Gold Plus CASE. Provider Outr Resulting Lab CHEMISTRY & BLOOD GAS ORDERABLES [facility] [address] [place] [address] documented in this encounter Visit Diagnoses Not on filedocumented in this encounter Care Teams Sole Stapler Welt Relationship Specialty Start Date End Date Marcio Carranza MD PCP - General 07/26/15 documented as of this encounter
--- OUTSIDE RECORDS SUMMARY | 2024-06-14 15:35 | XMS_ITS | Encounter Summary ---
Author Organization [facility] [place] [address] Care Team Providers Care Care Professionals Name Role Phone Marcio Carranza MD Primary Care Provider [phone] Encounter Details Date Type Department Care Team (Late st Contact Info) Description 08/14/2010 2:45 PM EST Follow-[place] [address] Eden Reynoso MD [address] [place] [address] [place] [address] Social History Tobacco Use Types Packs/Day Years [...] PM EDT Appointment Non-Invasive [place] [address] Luis Alfredo Velazquez MD [facility] [place] [address] 07/02/2024 4:00 PM EDT Office Visit Cardiology at [place] [address] Mars Green PA [facility] [place] [address] 07/02/2024 4:40 PM EDT Office Visit Cardiology at [place] [address] Luis Alfredo Velazquez MD [facility] [place] [address] 07/18/2024 9:00 AM EST Hospital Encounter Non-Invasive Cardiology Lab [place] [address] Arrived 07/27/2024 3:30 PM EST Office Visit Rheumatology at [place] [address] Gabe Fong MD [facility] [place] [address] 12/07/2024 2:30 PM EDT TH Visit (TeleHealth) Gastroenterology at [place] [address] Rosemarie Morrow, SKIP [facility] [place] [address] documented as of this encounter Visit Diagnoses Not on filedocumented in this encounter Care Teams Care Professionals Relationship Specialty Start Date End Date Marcio Carranza MD [address] [place] [address] PCP - General 08/07/10 11/10/17 documented as of this encounter
--- OUTSIDE RECORDS SUMMARY | 2024-06-14 15:35 | XMS_ITS | Encounter Summary ---
Author Organization [facility] Address [facility] [place] [address] Care Team Providers Care Seed Cleaning Machine Operator Name Role Phone Marcio Devlin DO Primary Care Provider [phone] Encounter Details Date Type Department Care Team (Late st Contact Info) Description 04/04/2010 Orders [place] [address] Marc Chan MD [facility] [place] [address] Social History Tobacco Use Types Packs/Day Years Used Date Smoking Tobacco: Never Assessed [place] Utilities Answer Date Recorded In the past 12 months has [employer], gas, oil, or water [employer] threatened to shut off services in your [...] EDT Appointment Non-[place] [address] Luis Alfredo Velazquez MD [facility] [place] [address] 07/02/2024 4:00 PM EDT Office Visit Cardiology at [address] [address] Mars Green PA [facility] [place] [address] 07/02/2024 4:40 PM EDT Office Visit Cardiology at [address] [address] Luis Alfredo Velazquez MD [facility] [place] [address] 07/18/2024 9:00 AM EST Hospital Encounter Non-Invasive [place] [address] Arrived 07/27/2024 3:30 PM EST Office [place] [address] [address] F[address] MD [facility] DR RHEUMATOLOGY [place] [address] 12/07/2024 2:30 PM EDT TH Visit (TeleHealth) [place] [address] Rosemarie Morrow APRN [facility] [place] [address] documented as of this encounter Procedures Procedure Name Priority Date/Time Associated Diagnosis Comments SURGICAL PATHOLOGY REPORT Routine 04/04/2010 10:31 AM EDT documented in this encounter Results * Surgical Pathology Report (04/04/2010 10:31 AM EDT) Surgical Pathology Report [id number] ? Location: 4T The signing pathologist has [...] in rendering the final pathologic diagnosis. [facility] 04/04/2010 10:3 1 AM EDT Marc Chan MD PATHOLOGY/CYTOLOGY O RDERABLES Performing Organization Address City/State/[facility] Co de Phone Number [facility] documented in this encounter Visit Diagnoses Not on filedocumented in this encounter Care Teams Seed Cleaning Machine Operator Relationship Specialty Start Date End Date Marcio Devlin DO [address] [place] [address] PCP - General Family Medicine 11/11/17 documented as of this encounter
--- OUTSIDE RECORDS SUMMARY | 2024-06-14 15:35 | XMS_ITS | Encounter Summary ---
Author Organization [facility] [place] [address] Care Team Providers Care Indexer Name Role Phone Marcio Carranza MD Primary Care Provider [phone] Encounter Details Date Type Department Care Team (Late st Contact Info) Description 08/15/2010 1:00 PM EST Follow-[place] [address] CL[address], DR [facility] Discharge Disposition: Home Social History Tobacco [...] 2:00 PM EDT Appointment Non-[place] [address] Luis Alfredo Velazquez MD [facility] [place] [place] [address] 07/02/2024 4:00 PM EDT Office Visit Cardiology at [place] [address] Mars Geren PA [facility] [place] [address] 07/02/2024 4:40 PM EDT Office Visit Cardiology at [place] [address] Luis Alfredo Velazquez MD [facility] [place] [address] 07/18/2024 9:00 AM EST Hospital Encounter Non-Invasive Cardiology Lab [place] [address] Arrived 07/27/2024 3:30 PM EST Office Visit Rheumatology at [place] [address] Gabe Fong MD [facility] [place] [address] 12/07/2024 2:30 PM EDT TH Visit (TeleHealth) Gastroenterology at [place] [address] Rosemarie Morrow, SKIP [facility] [place] [address] documented as of this encounter Visit Diagnoses Not on filedocumented in this encounter Care Teams Indexer Relationship Specialty Start Date End Date Marcio Carranza MD [address] [place] [address] PCP - General 08/07/10 11/10/17 documented as of this encounter
--- OUTSIDE RECORDS SUMMARY | 2024-06-14 15:35 | XMS_ITS | Encounter Summary ---
Author Organization [facility] Address [address] [place] [address] Care Team Providers Care Door To Door Lead Generation Name Role Phone Marcio Carranza MD Primary Care Provider Unav ailable Encounter Details Date Type Department Care Team (Late st Contact Info) Description 06/13/2023 Lab Requisition [facility] Pathology & Laboratory Medicine - [address] [address] Outr Resulting Lab, Provider Social History Tobacco [...] IGA <1.2 <4.0 U/mL 06/16/2023 12:43 EDT [facility] Comment: A negative result may be due to IgA deficiency and does not rule out celiac disease. ? Negative: ??<4.0 U/mL ? Weak Positive: ??4.0 - 10.0 U/mL ? Positive: ??>10.0 U/mL Results were obtained with the AvaakA Lite R h-tTG IgA CASE assay on the [employer] DSX. Blood VENOUS BLOOD / Unknown 06/13/2023 14:35 EDT 06/13/2023 21:18 EDT Provider Outr Resulting Lab IMMUNOLOGY A ND SEROLOGY ORDERABLES Performing Organization Address City/State/[facility] Co de Phone Number [facility] [address] [place] [address] documented in this encounter Visit Diagnoses Not on filedocumented in this encounter Care Teams Door To Door Lead Generation Relationship Specialty Start Date End Date Marcio Carranza MD PCP - General 07/26/15 documented as of this encounter
--- OUTSIDE RECORDS SUMMARY | 2024-06-14 15:35 | XMS_ITS | Encounter Summary ---
Author Organization [facility] Address [address] [place] [address] Care Team Providers Care Physician Non Invasive Cardiologist Name Role Phone Marcio Carranza MD Primary Care Provider Unav ailable Encounter Details Date Type Department Care Team (Late st Contact Info) Description 06/27/2023 Lab Requisition [facility] Pathology & Laboratory Medicine - [address] [address] Outr Resulting Lab, Provider Social History Tobacco [...] 85 - 499 mg/dL 06/30/2023 11:11 EDT [facility] Blood VENOUS BLOOD / Unknown 06/27/2023 14:40 EDT 06/27/2023 21:25 EDT Provider Outr Resulting Lab CHEMISTRY & BLOOD GAS ORDERABLES [facility] [address] [place] [address] documented in this encounter Visit Diagnoses Not on filedocumented in this encounter Care Teams Physician Non Invasive Cardiologist Relationship Specialty Start Date End Date Marcio Carranza MD PCP - General 07/26/15 documented as of this encounter
--- OUTSIDE RECORDS SUMMARY | 2024-06-14 15:35 | XMS_ITS | Clinical Summary ---
Author Organization [facility] Address [address] [place] [address] Care Team Providers Care Rubber Extrusion Machine Operator Name Role Phone Marcio Carranza [...] COVID-19 Vaccine (2022-24 season) 2023 Care Teams Rubber Extrusion Machine Operator Relationship Specialty Start Date End Date Marcio Carranza MD PCP - General 07/26/15
--- OUTSIDE RECORDS SUMMARY | 2024-06-14 15:35 | XMS_ITS | Referral Summary ---
Author Organization [facility] Address [address] [place] [address] Care Team Providers Care Band Straightener Name Role Phone Marcio Carranza MD Primary Care Provider Unav ailable Social History Tobacco Use Types Packs/Day Years Used Date Smoking Tobacco: Never Assessed Sex and Gender Information Value Date Recorded Sex Assigned at Not on file Gender Identity Not on file Sexual Orientation Not on file Plan of Treatment Not on file Care Teams Band Straightener Relationship Specialty Start Date End Date Marcio Carranza MD PCP - General 07/26/15
--- OUTSIDE RECORDS SUMMARY | 2024-06-14 15:35 | XMS_ITS | Encounter Summary ---
Author Organization [facility] Address [facility] [place] [address] Care Team Providers Care Cemetery Laborer Name Role Phone Marcio Carranza MD Primary Care Provider +1 -[phone] Encounter Details Date Type Department Care Team (Late st Contact Info) Description 02/08/2011 External Results [place] [address] Marc Chan MD [facility] DR [place] [address] Social History Tobacco Use Types Packs/Day Years [...] 2:00 PM EDT Appointment Non-Invasive [place] [address] Luis Alfredo Velazquez MD [facility] [address] 07/02/2024 4:00 PM EDT Office Visit Cardiology at [place] [phone] Mars Green PA [facility] [address] 07/02/2024 4:40 PM EDT Office [place] [address] Luis Alfredo Velazquez MD [facility] [address] 07/18/2024 9:00 AM EST Hospital Encounter Non-Invasive Cardiology Lab [address] Arrived 07/27/2024 3:30 PM EST Office Visit Rheumatology at [place] [address] Gabe Fong MD [facility] [address] 12/07/2024 2:30 PM EDT TH Visit (TeleHealth) Gastroenterology at [place] [address] Rosemarie Morrow APRN [facility] [place] [address] documented as of this encounter Procedures Procedure Name Priority Date/Time Associated Diagnosis Comments LAB SCAN Routine 02/07/2011 documented in this encounter Results * Scan Doc: Lab (02/07/2011) Marc Chan MD MEDIA MGR SCAN EXT O RDR/RSLT documented in this encounter Visit Diagnoses Not on filedocumented in this encounter Care Teams Cemetery Laborer Relationship Specialty Start Date End Date Ziobrowski, Marcio F, MD [address] [place] [address] PCP - General 08/07/10 11/10/17 documented as of this encounter
--- OUTSIDE RECORDS SUMMARY | 2024-06-14 15:35 | XMS_ITS | Encounter Summary ---
Author Organization [facility] Address [address] [place] [address] Care Team Providers Care Diesel Retrofit Designer Name Role Phone Marcio Carranza MD Primary Care Provider Unav ailable Encounter Details Date Type Department Care Team ([facility] st Contact Info) Description 06/27/2017 Results Only [facility] [phone] Evan Miller MD [address] [place] [address] Social History Tobacco Use Types Packs/Day Years [...] ? KIM PEREZ ? Accession #: ? [id number] ? : ? 1960 (Age: 57) ??F [...] types 16,18,31,33,35, 39,45,51,52,56,58, 59,66, and 68 by slip cover seamstress mediated amplification. Comments Document reviewed and electronically [...] ORDERABLES [facility] [address] [place] [address] documented in this encounter Visit Diagnoses Not on filedocumented in this encounter Care Teams Diesel Retrofit Designer Relationship Specialty Start Date End Date Marcio Carranza MD PCP - General 07/26/15 documented as of this encounter
--- OUTSIDE RECORDS SUMMARY | 2024-06-14 15:35 | XMS_ITS | Encounter Summary ---
[place] [address] Care Team Providers Care Broadcast Supervisor Name Role Phone Marcio Carranza MD Primary Care Provider +1 -[phone] Encounter Details Date Type Department Care Team (Late st Contact Info) Description 10/15/2010 8:45 AM EST Follow-[place] [address] Eden Reynoso MD [address] [place] [address] [place] [address] Discharge Disposition: Home Social History Tobacco Use [...] 2:00 PM EDT Appointment Non-Invasive [place] [phone] Luis Alfredo Velazquez MD [facility] [place] [address] 07/02/2024 4:00 PM EDT Office Visit Cardiology at [place] [address] Mars Green PA [facility] [place] [place] [address] 07/02/2024 4:40 PM EDT Office Visit Cardiology at [place] [address] Luis Alfredo Velazquez MD [facility] [place] [address] 07/18/2024 9:00 AM EST Hospital Encounter Non-Invasive Cardiology Lab [place] [address] Arrived 07/27/2024 3:30 PM EST Office Visit Rheumatology at [place] [address] Gabe Fong MD [facility] [place] [address] 12/07/2024 2:30 PM EDT TH Visit (TeleHealth) Gastroenterology at [place] [address] Rosemarie Morrow, SKIP [facility] [place] [address] documented as of this encounter Visit Diagnoses Not on filedocumented in this encounter Care Teams Broadcast Supervisor Relationship Specialty Start Date End Date Marcio Carranza MD [address] [place] [address] PCP - General 08/07/10 11/10/17 documented as of this encounter
--- OUTSIDE RECORDS SUMMARY | 2024-06-14 15:35 | XMS_ITS | Encounter Summary ---
Author Organization [facility] Address [address] [place] [address] Care Team Providers Care Bacon Stringer Name Role Phone Marcio Carranza MD Primary Care Provider Unav ailable Encounter Details Date Type Department Care Team (Late st Contact Info) Description 06/13/2023 Lab Requisition [facility] Pathology & Laboratory Medicine - [address] [address] Outr Resulting Lab, Provider Social History Tobacco [...] 85 - 499 mg/dL 06/16/2023 9:53 EDT [facility] Blood VENOUS BLOOD / Unknown 06/13/2023 14:35 EDT 06/13/2023 21:23 EDT Provider Outr Resulting Lab CHEMISTRY & BLOOD GAS ORDERABLES [facility] [address] [place] [address] documented in this encounter Visit Diagnoses Not on filedocumented in this encounter Care Teams Bacon Stringer Relationship Specialty Start Date End Date Marcio Carranza MD PCP - General 07/26/15 documented as of this encounter
--- OUTSIDE RECORDS SUMMARY | 2024-06-14 15:35 | XMS_ITS | Encounter Summary ---
Author Organization [facility] Address [address] [place] [address] Care Team Providers Care Clip Baker Name Role Phone Marcio Carranza MD Primary Care Provider Unav ailable Encounter Details Date Type Department Care Team (Late st Contact Info) Description 05/16/2023 Lab Requisition [facility] Pathology & Laboratory Medicine - [address] [address] Outr Resulting Lab, Provider Social History Tobacco [...] IGA <1.2 <4.0 U/mL 05/19/2023 12:33 EDT [facility] Comment: A negative result may be due to IgA deficiency and does not rule out celiac disease. ? Negative: ??<4.0 U/mL ? Weak Positive: ??4.0 - 10.0 U/mL ? Positive: ??>10.0 U/mL Results were obtained with the [employer] Lite R h-tTG IgA CASE assay on the [employer] DSX. Blood VENOUS BLOOD / Unknown 05/16/2023 14:30 EDT 05/16/2023 20:53 EDT Provider Outr Resulting Lab IMMUNOLOGY A ND SEROLOGY ORDERABLES Performing Organization Address City/State/[facility] Co de Phone Number [facility] [address] [place] [address] documented in this encounter Visit Diagnoses Not on filedocumented in this encounter Care Teams Clip Baker Relationship Specialty Start Date End Date Marcio Carranza MD PCP - General 07/26/15 documented as of this encounter
--- OUTSIDE RECORDS SUMMARY | 2024-06-14 15:35 | XMS_ITS | Encounter Summary ---
Author Organization [facility] Address [address] [place] [address] Care Team Providers Care Rn Mobile Name Role Phone Unavailable Primary Care Provider Unavailabl e Encounter Details Date Type Department Care Team (Late st Contact Info) Description 03/06/2011 Results Only [facility] [phone] Demetris Rubin, CARGO AGENT [address] [place], [place] [id number] Social History Tobacco Use Types Packs/Day Years [...] ? KIM FUNES ? Accession #: ? [id number] ? : ? 1960 (Age: 50) ??F ?Collect Date: ? 03/06/2011 ? Location: ? [facility] ? Receive Date: ? 03/08/2011 ? Provider: ?DEMETRIS MACLEOD CARGO AGENT ? Copy to: ? Specimen/Source: ?Pap Test, Cervix, ThinPrep Imaging System with manual ?? evaluation ? Last Menstrual Period: ? Nov. 2009 ? SPECIMEN ADEQUACY ? Satisfactory for Evaluation ? - transformation zone component present ? GENERAL CATEGORIZATION ? Negative for Intraepithelial Lesion or Malignancy ? Document reviewed and electronically signed by: ? Jenifer Reeder, CT(ASCP) ? Report Date: ??03/11/2011 11:23 ? End of Report ? NEMESIO MARX 03/06/2011 03/08/2011 Demetrisfernando Rubin CARGO AGENT PATHOLOGY ORDERAB LES [facility] [address] [place] [address] documented in this encounter Visit Diagnoses Not on filedocumented in this encounter
--- OUTSIDE RECORDS SUMMARY | 2024-06-14 15:35 | XMS_ITS | Encounter Summary ---
Author Organization [facility] Address [address] [place] [address] Care Team Providers Care Communications Project Lead Name Role Phone Marcio Carranza MD Primary Care Provider Unav ailable Encounter Details Date Type Department Care Team (Late st Contact Info) Description 08/02/2021 Lab Requisition [facility] Pathology & Laboratory Medicine - [address] [address] Outr Resulting Lab, Provider Social History Tobacco [...] Ab, Total Negative Negative 08/03/2021 10:48 EST [facility] Blood VENOUS BLOOD / Unknown 08/02/2021 15:15 EST 08/02/2021 21:06 EST Provider Outr Resulting Lab CHEMISTRY & BLOOD GAS ORDERABLES [facility] [address] [place] [address] documented in this encounter Visit Diagnoses Not on filedocumented in this encounter Care Teams Communications Project Lead Relationship Specialty Start Date End Date Marcio Carranza MD PCP - General 07/26/15 documented as of this encounter
--- OUTSIDE RECORDS SUMMARY | 2024-06-14 15:35 | XMS_ITS | Encounter Summary ---
Author Organization [facility] [place] [address] Care Team Providers Care Rn Procedure Name Role Phone Marcio Carranza MD Primary Care Provider +1 [phone] Encounter Details Date Type Department Care Team (Late st Contact Info) Description 08/14/2010 2:00 PM EST Follow-[place] [address] Marc Chan MD [facility] DR GASTROENTER[place] [address] Social History Tobacco Use Types Packs/Day Years [...] PM EDT Appointment Non-Invasive [place] [address] Luis Alfredo Velazquez MD [facility] CARDIOLOGY [place], [place] [address] 07/02/2024 4:00 PM EDT Office Visit Cardiology at [address] Mars Green PA [facility] [place] [address] 07/02/2024 4:40 PM EDT Office Visit Cardiology at [place] [address] Luis Alfredo Velazquez MD [facility] [place] [address] 07/18/2024 9:00 AM EST Hospital Encounter Non-Invasive Cardiology Lab [place] [address] Arrived 07/27/2024 3:30 PM EST Office Visit Rheumatology at [place] [address] Gabe Fong MD [facility] [place] [address] 12/07/2024 2:30 PM EDT TH Visit (TeleHealth) Gastroenterology at [place] [address] Rosemarie Morrow APRN [facility] [place] [address] documented as of this encounter Visit Diagnoses Not on filedocumented in this encounter Care Teams Rn Procedure Relationship Specialty Start Date End Date Marcio Carranza MD [address] [place] [address] PCP - General 08/07/10 11/10/17 documented as of this encounter
--- OUTSIDE RECORDS SUMMARY | 2024-06-14 15:35 | XMS_ITS | Encounter Summary ---
[place] [address] Care Team Providers Care Hospitality Team Member Name Role Phone Marcio Carranza MD Primary Care Provider +1 -[phone] Reason for Visit * Reason Onset Date Comments Medication Refill 01/22/2011 Encounter Details Date Type Department Care Team (Late st Contact Info) Description 01/22/2011 Refill [place] [address] Eden Reynoso MD [address] [place] [address] [place] [address] Spondylitis Social History Tobacco Use Types Packs/Day [...] PM EDT Appointment Non-Invasive [place] [address] Luis Alfredo Velazquez MD [facility] [place] [address] 07/02/2024 4:00 PM EDT Office Visit Cardiology at [place] [address] Mars Green PA [facility] [place] [address] 07/02/2024 4:40 PM EDT Office Visit Cardiology at [place] [address] Luis Alfredo Velazquez MD [facility] [place] [address] 07/18/2024 9:00 AM EST Hospital Encounter Non-Invasive Cardiology Lab [place] [address] Arrived 07/27/2024 3:30 PM EST Office Visit Rheumatology at [place] [address] Gabe Fong MD [facility] [place] [address] 12/07/2024 2:30 PM EDT TH Visit (TeleHealth) Gastroenterology at [place] [address] Rosemarie Morrow APRN [facility] [place] [address] documented as of this encounter Visit Diagnoses Diagnosis Spondylitis Unspecified inflammatory spondylopathy documented in this encounter Care Teams Hospitality Team Member Relationship Specialty Start Date End Date Marcio Carranza MD [address] [place] [address] PCP - General 08/07/10 11/10/17 documented as of this encounter
--- OUTSIDE RECORDS SUMMARY | 2024-06-14 15:35 | XMS_ITS | Encounter Summary ---
Author Organization [facility] [place] [address] Care Team Providers Care Brass Wind Instrument Maker Name Role Phone Marcio Carranza MD Primary Care Provider +1 -[phone] Reason for Visit * Reason Comments Hepatic Disease Encounter Details Date Type Department Care Team (Late st Contact Info) Description 02/21/2011 12:00 PM EDT Follow-[place] [address] Marc Chan MD [facility] [place] [address] Ulcerative colitis; MÉNDEZ (nonalcoholic steatohepatitis); Lipid disorder [...] and Hepatology Clinic Provider: Marc Chan MD ([id number]) Referral Doctor: Marcio Carranza MD [facility] [address] [place] [address] Problem List: 1. MÉNDEZ (stage 2 in [...] conclusion of the visit. Marc Chan MD Battery Loaderrestaurant supervisor & Director of End Stage Liver Care Division of Gastroenterology and Hepatology tel: fax: [email or web address] documented in this encounter Plan of Treatment Upcoming Encounters Date Type Department Care Team (Late st Contact Info) Description 07/02/2024 2:00 PM EDT Appointment Non-Invasive [place] [address] Luis Alfredo Velazquez MD [facility] [place] [address] 07/02/2024 4:00 PM EDT Office Visit Cardiology at [address] [address] Mars Green PA [facility] [place] [address] 07/02/2024 4:40 PM EDT Office Visit Cardiology at [place] [phone] Luis Alfredo Velazquez MD [facility] [place] [address] 07/18/2024 9:00 AM EST Hospital Encounter Non-[place] [address] Arrived 07/27/2024 3:30 PM EST Office Visit Rheumatology at [place] [address] Gabe Fong MD [facility] [place] [address] 12/07/2024 2:30 PM EDT TH Visit (TeleHealth) [place] [address] Rosemarie Morrow APRN [facility] [place] [address] documented as of this encounter Visit Diagnoses Diagnosis Ulcerative colitis Ulcerative colitis, unspecified MÉNDEZ (nonalcoholic steatohepatitis) Other chronic nonalcoholic liver disease Lipid disorder Unspecified disorder of lipoid metabolism documented in this encounter Care Teams Brass Wind Instrument Maker Relationship Specialty Start Date End Date Marcio Carranza MD [address] [place] [address] PCP - General 08/07/10 11/10/17 documented as of this encounter
--- OUTSIDE RECORDS SUMMARY | 2024-06-14 15:35 | XMS_ITS | Encounter Summary ---
Author Organization [facility] [place] [address] Care Team Providers Care Awning Finisher Name Role Phone Marcio Carranza MD Primary Care Provider +1 -[phone] Reason for Visit * Reason Comments Follow-up Spondylitis; Ankylosing Encounter Details Date Type Department Care Team (Late st Contact Info) Description 02/21/2011 9:45 AM EDT [place] [phone] Eden Reynoso MD [address] [place] [address] [place] [address] Spondylitis (Primary Dx); Enteropathic arthropathy Discharge Disposition: [...] she is seeing Dr. Chan here at [facility]. She started on the Humira late [...] PM EDT Appointment Non-Invasive [place] [address] Luis Alfredo Velazquez MD [facility] [place] [address] 07/02/2024 4:00 PM EDT Office Visit Cardiology at [place] [address] Mars Green PA [facility] [place] [address] 07/02/2024 4:40 PM EDT [place] [address] Luis Alfredo Velazquez MD [facility] [place] [address] 07/18/2024 9:00 AM EST Hospital Encounter Non-Invasive Cardiology Lab [place] [address] Arrived 07/27/2024 3:30 PM EST Office Visit Rheumatology at [place] [address] Gabe Fong MD [facility] [place] [address] 12/07/2024 2:30 PM EDT TH Visit (TeleHealth) Gastroenterology at [place] [address] Rosemarie Morrow APRN [facility] [place] [address] documented as of this encounter Visit Diagnoses Diagnosis Spondylitis- Primary 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
--- OUTSIDE RECORDS SUMMARY | 2024-06-14 15:35 | XMS_ITS | Encounter Summary ---
[place] [address] Care Team Providers Care Pulp And Paper Tester Name Role Phone Marcio Carranza MD Primary Care Provider +1 -[phone] Encounter Details Date Type Department Care Team (Late st Contact Info) Description 08/14/2010 [place] [address] Eden Reynoso MD [address] [place] [address] Social History Tobacco Use Types Packs/Day Years [...] 2:00 PM EDT Appointment Non-[place] [address] Luis Alfredo Velazquez MD [facility] [place] [address] 07/02/2024 4:00 PM EDT Office Visit Cardiology at [place] [phone] Mars Green PA [facility] [place] [address] 07/02/2024 4:40 PM EDT Office Visit Cardiology at [place] [phone] Luis Alfredo Velazquez MD [facility] [place] [address] 07/18/2024 9:00 AM EST Hospital Encounter Non-[place]vasive [place] [address] Arrived 07/27/2024 3:30 PM EST Office Visit Rheumatology at [place] [phone] Gabe Fong MD [facility] [place] [address] 12/07/2024 2:30 PM EDT TH Visit (TeleHealth) [place] [address] Rosemarie Morrow APRN [facility] [place] [address] documented as of this encounter Procedures Procedure [...] HIGH SENSITIVITY CRP (08/14/2010 3:52 PM EST) [facility] C-Reactive Protein High Sensitivity 49.9 mg/L [facility] Comment: result rechecked, blr Interpretations: [...] PM EST Eden Reynoso MD CHEMISTRY ORDERABLES [facility] * (ABNORMAL) FERRITIN (08/14/2010 3:52 PM EST) Ferritin 199(H) 15 - 150 ng/mL CERNER MILLENNIUM Comment: Pediatric reference ranges not verified at [facility], interpret with caution. Reference ranges for females greater than 50 years of age approach values for men, i.e., 30-400 ng/mL. Blood specimen (specimen) 08/14/2010 3:52 PM EST 08/14/2010 4:05 PM EST Eden Reynoso MD CHEMISTRY ORDERABLES Performing Organization Address City/[facility] Co de Phone Number CERNER MILLENNIUM * (ABNORMAL) IRON AND TIBC (08/14/2010 3:52 PM EST) Iron 40 30 - 150 mcg/dL CERNER MILLENNIUM TIBC 284 250 - 450 mcg/dL CERNER MILLENNIUM Iron Saturation 14(L) 20 - 50 % CERN ER MILLENNIUM Blood specimen (specimen) 08/14/2010 3:52 PM EST 08/14/2010 4:05 PM EST Eden Reynoso MD CHEMISTRY ORDERABLES Performing Organization Address [facility] de Phone Number CERNER MILLENNIUM * (ABNORMAL) HEPATIC FUNCTION PANEL (08/14/2010 3:52 PM EST) Protein, Total 8.3 6.4 - 8.3 gm/dL CERNER MILLENNIUM Albumin 4.1 3.2 - 5.2 gm/dL CERNER MILLENNIUM Aspartate Aminotransferase 63(H) 0 - 30 unit/L CERNER MILLENNIUM Alanine Aminotransferase 69(H) 0 - 30 unit/L CERNER MILLENNIUM Alkaline Phosphatase 135(H) 40 - 104 unit/L CERNER MILLENNIUM Bilirubin, Total 0.2 0.2 - 1.3 mg/dL CERNER MILLENNIUM Bilirubin, Direct 0.1 0.0 - 0.3 mg/dL CERNER MILLENNIUM Blood specimen (specimen) 08/14/2010 3:52 PM EST 08/14/2010 4:05 PM EST Eden Reynoso MD CHEMISTRY ORDERABLES Performing Organization Address [facility]/ZIP Co de Phone Number CERNER MILLENNIUM * CK (08/14/2010 3:52 PM EST) Creatine Kinase 135 0 - 160 unit/L TYSHAWN RICKETTS Blood specimen (specimen) 08/14/2010 3:52 PM EST 08/14/2010 4:05 PM EST Eden Reynoso MD CHEMISTRY ORDERABLES Performing Organization Address City/State/[facility] Co de Phone Number TYSHAWN RICKETTS documented in this encounter Visit Diagnoses Not on filedocumented in this encounter Care Teams Pulp And Paper Tester Relationship Specialty Start Date End Date Marcio Carranza MD [address] [facility] [place] [address] PCP - General 08/07/10 11/10/17 documented as of this encounter
--- OUTSIDE RECORDS SUMMARY | 2024-06-14 15:35 | XMS_ITS | Encounter Summary ---
Author Organization [place] [address] Care Team Providers Care Rip And Groove Machine Operator Name Role Phone Marcio Carranza MD Primary Care Provider [phone] Encounter Details Date Type Department Care Team (Latest Contact Info) Description 01/02/2011 7:47 AM EDT - 01/02/2011 11:15 AM EDT Hospital En[place] [phone] Yaquelin Chan MD [facility] [place] [address] Discharge Disposition: Home Social History Tobacco Use [...] of this encounter H&P Notes * Yaquelin Chna MD - 01/02/2011 9:15 AM EDT H&P [...] 2:00 PM EDT Appointment Non[place] [address] Luis Alfredo Velazquez MD [facility] [place] [address] 07/02/2024 4:00 PM EDT Office Visit Cardiology at [address] [address] [place] [facility] [place] [address] 07/02/2024 4:40 PM EDT Office Visit Cardiology at [address] [address] Luis Alfredo Velazquez MD [facility] CARDIOLOGY [place], [place] [phone] 07/18/2024 9:00 AM EST Hospital Encounter Non-[place] [address] Arrived 07/27/2024 3:30 PM EST Office [place] [address] Gabe Fong MD [facility] RHEUMATOLOGY [place], [place] [phone] 12/07/2024 2:30 PM EDT TH Visit (TeleHealth) [place] [address] Rosemarie Morrow APRN [facility] [place] [address] documented as of this encounter Procedures Procedure [...] 10:14 AM EDT) Surgical Pathology Report [id number] ? Location: 4T The signing pathologist has [...] rendering the final pathologic diagnosis. TYSHAWN RICKETTS 01/02/2011 10:1 4 AM EDT Yaquelin Chan MD PATHOLOGY/CYTOLOGY [facility] SURGICAL PATHOLOGY REPORT (01/02/2011 10:14 AM EDT) Surgical Pathology Report ? [facility] ? Provider: ?? YAQUELIN CHAN ? Pt. Name: ?? KIM FUNES ? Acc #: ?[id number] ?Pt. ? Col Date: ?? 01/02/2011 ? [...] Tissue Description: ?? Soft, brown tissues. ? [facility] ? Provider: ?? NATALIE, YAQUELIN S ? Pt. Name: ?? KIM FUNES ? Acc #: ?[id number] ?Pt. ? Col Date: ?? 01/02/2011 ? [...] Clinical History/Diagnosi s: ? UC [facility] 01/02/2011 10:1 4 AM EDT Yaquelin Chan MD [facility]OLOG[facility] * COLONOSCOPY (01/02/2011 9:07 AM EDT) COLONOSCOPY [facility] Endoscopy ___ Patient Name: Kim Funes ? Procedure Date: 01/02/2011 09:07:07 AM ? Date of : 1960 ? Age: 50 ? ___ Procedure: ? Colonoscopy Indications: ? High risk colon cancer surveillance: ? Ulcerative pancolitis Providers: ? Yaquelin Chan MD, Ramya Guido, ? RN, Nathaniel Oliva, Elementary Secretary Referring : ?Marcio Carranza MD, Dajuan Garcia [...] Fri01/02/11 at 0928, Until Fri01/02/11 at 09, Pain, [...] Fri01/02/11 at 09, Sleep, Intra-Operative (Intra-Procedure), Routine 932 (Given - Provid er: Ramya Guido RN) documented in this encounter Care Teams Rip And Groove Machine Operator Relationship Specialty Start Date End Date Marcio Carranza MD [address] [place] [address] PCP - General 08/07/10 11/10/17 documented as of this encounter
--- OUTSIDE RECORDS SUMMARY | 2024-06-14 15:35 | XMS_ITS | Encounter Summary ---
Author Organization [facility] Address [address] [place] [address] Care Team Providers Care Biofuels Plant Construction Worker Name Role Phone Marcio Carranza MD Primary Care Provider Unav ailable Encounter Details Date Type Department Care Team (Late st Contact Info) Description 05/30/[address] [facility] Pathology & Laboratory Medicine - [address] [address] Outr Resulting Lab, Provider Social History Tobacco [...] 85 - 499 mg/dL 06/02/2023 10:49 EDT [facility] Blood VENOUS BLOOD / Unknown 05/30/2023 14:40 EDT 05/30/2023 21:40 EDT Provider Outr Resulting Lab CHEMISTRY & BLOOD GAS ORDERABLES [facility] [address] [place] [address] documented in this encounter Visit Diagnoses Not on filedocumented in this encounter Care Teams Biofuels Plant Construction Worker Relationship Specialty Start Date End Date Marcio Carranza MD PCP - General 07/26/15 documented as of this encounter
--- OUTSIDE RECORDS SUMMARY | 2024-06-14 15:35 | XMS_ITS | Encounter Summary ---
Author Organization [facility] Address [address] [place] [address] Care Team Providers Care Manager Control Name Role Phone Marcio Carranza MD Primary Care Provider Unav ailable Encounter Details Date Type Department Care Team (Late st Contact Info) Description 05/30/2023 Lab Requisition [facility] Pathology & Laboratory Medicine - [address] [address] Outr Resulting Lab, Provider Social History Tobacco [...] IGA <1.2 <4.0 U/mL 06/02/2023 11:50 EDT [facility] Comment: A negative result may be due to IgA deficiency and does not rule out celiac disease. ? Negative: ??<4.0 U/mL ? Weak Positive: ??4.0 - 10.0 U/mL ? Positive: ??>10.0 U/mL Results were obtained with the beatlabA Lite R h-tTG IgA CASE assay on the NephroGenex DSX. Blood VENOUS BLOOD / Unknown 05/30/2023 14:40 EDT 05/30/2023 21:40 EDT Provider Outr Resulting Lab IMMUNOLOGY A ND SEROLOGY ORDERABLES Performing Organization Address City/State/[facility] Co de Phone Number [facility] [address] [place] [address] documented in this encounter Visit Diagnoses Not on filedocumented in this encounter Care Teams Manager Control Relationship Specialty Start Date End Date Marcio Carranza MD PCP - General 07/26/15 documented as of this encounter
--- OUTSIDE RECORDS SUMMARY | 2024-06-14 15:35 | XMS_ITS ---
Author Organization [facility] [place] [address] Care Team Providers Care Mechanic Marine Engine Name Role Phone Marcio Devlin DO Primary Care Provider [phone] Rheumatology Status:Ineligible (Enrolling) Start date:04/29/2024 Enrollment reason:Ineligible - Insurance Mandate Linked medications:upadacitinib (Active) Linked problems:Ankylosing spondylitis (Active) Continued Care and Services Coordination
--- OUTSIDE RECORDS SUMMARY | 2024-06-14 15:35 | XMS_ITS | Encounter Summary ---
Author Organization [facility] [place] [address] Care Team Providers Care English As A Second Language Instructor Name Role Phone Marcio Carranza MD Primary Care Provider [phone] Encounter Details Date Type Department Care Team (Late st Contact Info) Description 01/02/2011 9:00 AM EDT - 01/02/2011 9:45 AM EDT Surgery [place] [phone] Yaquelin Chan MD [facility] DR [place] [address] COLONOSCOPY FLEXIBLE, WITH BX (WRVU 3.56) Social [...] 2:00 PM EDT Appointment Non-Invasive [place] [phone] Luis Alfredo Velazquez MD [facility] [place] [address] 07/02/2024 4:00 PM EDT Office Visit Cardiology at [address] [place] [facility] [place] [address] 07/02/2024 4:40 PM EDT Office [place] [address] Luis Alfredo Velazquez MD [facility] [place] [address] 07/18/2024 9:00 AM EST Hospital Encounter Non-Invasive [place] [address] Arrived 07/27/2024 3:30 PM EST Office Visit Rheumatology at [place] [address] Gabe Fong MD [facility] [place] [address] 12/07/2024 2:30 PM EDT TH Visit (TeleHealth) [place] [address] Rosemarie Morrow APRN [facility] [place] [address] documented as of this encounter Procedures Procedure [...] 10:14 AM EDT) Surgical Pathology Report [id number] ? Location: 4T The signing pathologist has [...] in rendering the final pathologic diagnosis. [facility] 01/02/2011 10:1 4 AM EDT Yaquelin Chan MD PATHOLOGY/CYTOLOGY [facility] * SURGICAL PATHOLOGY REPORT (01/02/2011 10:14 AM EDT) Surgical Pathology Report ? [facility] ? Provider: ?? YAQUELIN CHAN ? Pt. Name: ?? ANAJENNIFER ? Acc #: ?[id number] ?Pt. ? Col Date: ?? 01/02/2011 ? [...] Tissue Description: ?? Soft, brown tissues. ? [facility] ? Provider: ?? YAQUELIN CHAN ? Pt. Name: ?? JENNIFER FUNES ? Acc #: ?[id number] ?Pt. ? Col Date: ?? 01/02/2011 ? [...] Clinical History/Diagnosi s: ? [facility] 01/02/2011 10:1 4 AM EDT Yaquelin Chan MD PATHOLOGY/CYTOLOGY O RDERABLES [facility] * COLONOSCOPY (01/02/2011 9:07 AM EDT) COLONOSCOPY [facility] ___ Patient Name: Jennifer Funes ? Procedure Date: 01/02/2011 09:07:07 AM ? Date of : 1960 ? Age: 50 ? ___ Procedure: ? Colonoscopy Indications: ? High risk colon cancer surveillance: ? Ulcerative pancolitis Providers: ? Yaquelin Chan MD, Ramya Guido, ? RN, Nathaniel Oliva, Manager Flight Operations Referring : ?Marcio Carranza MD, Dajuan Garcia [...] Fri01/02/11 at 932, Sleep, Intra-Operative (Intra-Procedure), Routine Given 01/02/2011 9:33 [...] RN) documented in this encounter Care Teams English As A Second Language Instructor Relationship Specialty Start Date End Date Marcio Carranza MD [address] [place] [address] PCP - General 08/07/10 11/10/17 documented as of this encounter
--- OUTSIDE RECORDS SUMMARY | 2024-06-14 15:35 | XMS_ITS | Encounter Summary ---
Author Organization [facility] Address [address] [place] [address] Care Team Providers Care Magneto Repairer Name Role Phone Unavailable Primary Care Provider Unavailabl e Encounter Details Date Type Department Care Team (Late st Contact Info) Description 12/29/2000 Results Only [facility] - Maple conversion [address] [place] [address] Clarita Witt, KIM Social History Tobacco Use [...] ? KIM PEREZ ? Accession #: ? [id number] : ? 1960 (Age: 40) ??F ?Collect [...] NP PATHOLOGY ORDERABLES [facility] [address] [place] [address] documented in this encounter Visit Diagnoses Not on filedocumented in this encounter
--- OUTSIDE RECORDS SUMMARY | 2024-06-14 15:35 | XMS_ITS | Encounter Summary ---
Author Organization [facility] Address [address] [place] [address] Care Team Providers Care Branch Operations Manager Name Role Phone Marcio Carranza MD Primary Care Provider Unav ailable Encounter Details Date Type Department Care Team (Late st Contact Info) Description 04/04/2021 Lab Requisition [facility] Pathology & Laboratory Medicine - [address] [id number] Outr Resulting Lab, Provider Social History Tobacco [...] 4th Generation Negative Negative 04/05/2021 9:48 EDT [facility] Comment: If acute HIV-1 infection is suspected in a high risk ??patient, submit plasma specimen for HIV-1 RNA quantitation test. Fourth Generation assay performed on the Siemens Idea.meaur. Blood VENOUS BLOOD / Unknown 04/04/2021 14:07 EDT 04/04/2021 21:08 EDT Provider Outr Resulting Lab IMMUNOLOGY A ND SEROLOGY ORDERABLES Performing Organization Address [facility]/State/ZIP Co de Phone Number [facility] [address] [place] [address] documented in this encounter Visit Diagnoses Not on filedocumented in this encounter Care Teams Branch Operations Manager Relationship Specialty Start Date End Date Marcio Carranza MD PCP - General 07/26/15 documented as of this encounter
--- OUTSIDE RECORDS SUMMARY | 2024-06-14 15:35 | XMS_ITS | Encounter Summary ---
Author Organization [facility] Address [address] [place] [address] Care Team Providers Care Lung Puller Name Role Phone Unavailable Primary Care Provider Unavailabl e Encounter Details Date Type Department Care Team (Late st Contact Info) Description 04/14/2014 Results Only [facility]- PRISM [phone] Demetris Rubin, ARBORIST REPRESENTATIVE [address] [place] [address] Social History Tobacco Use Types [...] ? KIM PEREZ ? Accession #: ? [id number] ? : ? 1960 (Age: 54) ??F [...] types 16,18,31,33,35, 39,45,51,52,56,58, 59,66, and 68 by dial maker mediated amplification. Comments Document reviewed and electronically signed by: ? System Interface ? Report date: 04/22/2014 By the signature above, the attending physician certifies that he/she has personally conducted a gross and/or microscopic examination of the described specimens and rendered or confirmed the above diagnosis. End of Report [facility] 04/14/2014 04/18/2014 Demetris L MacLeod ARBORIST REPRESENTATIVE PATHOLOGY ORDERAB LES [facility] [address] [place] [address] documented in this encounter Visit Diagnoses Not on filedocumented in this encounter
--- OUTSIDE RECORDS SUMMARY | 2024-06-14 15:35 | XMS_ITS | Encounter Summary ---
Author Organization [facility] Address [address] [place] [address] Care Team Providers Care Risk Investigator Name Role Phone Marcio Carranza MD Primary Care Provider Unav ailable Encounter Details Date Type Department Care Team (Late st Contact Info) Description 05/16/2023 Lab Requisition [facility] Pathology & Laboratory Medicine - [address] [address] Outr Resulting Lab, Provider Social History Tobacco [...] 85 - 499 mg/dL 05/19/2023 10:37 EDT [facility] Blood VENOUS BLOOD / Unknown 05/16/2023 14:30 EDT 05/16/2023 20:54 EDT Provider Outr Resulting Lab CHEMISTRY & BLOOD GAS ORDERABLES [facility] [address] [place] [address] documented in this encounter Visit Diagnoses Not on filedocumented in this encounter Care Teams Risk Investigator Relationship Specialty Start Date End Date Marcio Carranza MD PCP - General 07/26/15 documented as of this encounter
--- OUTSIDE RECORDS SUMMARY | 2024-06-14 15:35 | XMS_ITS | Encounter Summary ---
Author Organization [facility] Address [address] [place] [address] Care Team Providers Care Talent Acquisition Administrator Name Role Phone Unavailable Primary Care Provider Unavailabl e Encounter Details Date Type Department Care Team (Late st Contact Info) Description 09/19/2008 Before PRISM Converted Visit (Maple) [facility] - Maple conversion [address] [place] [address] Jeyson Bryant MD [address] [place] [address] Social History Tobacco Use Types Packs/Day Years [...] colitis ? Gross Description: ? Received in [employer] fixative labelled Ana and bx terminal ? ileum are two biopsies measuring 0.3 x 0.2 x 0.2 cm and 0.3 x 0.3 x 0.2 cm. ? The specimens are submitted intact as (A). ? Received in [employer]'s fixative labelled Ana and bx cecum are two ? biopsies measuring 0.3 x 0.2 x 0.2 cm and 0.4 x 0.4 x 0.2 cm. ??The specimens are submitted intact as (B). ? Received in [employer]'s fixative labelled Ana and bx transverse colon are six biopsies which vary in size from 0.3 x 0.2 x 0.2 cm up to 0.5 x 0.3 x ?? 0.2 cm. ??The specimens are submitted intact as (C1) and (C2). ? Received in [facility]'s fixative labelled Ana and bx descending colon are three biopsies which vary in size from 0.2 x 0.2 x 0 .2 cm up to 0.3 x 0.2 x 0.1cm. ??The specimens are submitted intact as (D). ? Received in [facility]'s fixative labelled Ana and bx sigmoid polyp are three biopsies which vary in size from 0.3 x 0.2 x 0.1 cm up to 0.4 x 0.3 x 0.2 cm. ??The specimens are submitted intact as (E). ? Received in [facility]'s fixative labelled Ana and sigmoid colon bx [...] MD PATHOLOGY ORDERABLE S [facility] [address] [place] [address] documented in this encounter Visit Diagnoses Not on filedocumented in this encounter
--- OUTSIDE RECORDS SUMMARY | 2024-06-14 15:35 | XMS_ITS | Encounter Summary ---
Author Organization [facility] Address [address] [place] [address] Care Team Providers Care Toy Assembler Wood Name Role Phone Marcio Carranza MD Primary Care Provider Unav ailable Encounter Details Date Type Department Care Team (Late st Contact Info) Description 05/03/2020 Lab Requisition [facility] Pathology & Laboratory Medicine - [address] [address] Outr Resulting Lab, Provider Social History Tobacco [...] 19 - 88 pg/mL 05/04/2020 10:29 EDT [facility] Blood VENOUS BLOOD / Unknown 05/03/2020 8:30 EDT 05/03/2020 16:07 EDT Provider Outr Resulting Lab CHEMISTRY & BLOOD GAS ORDERABLES [facility] [address] [place] [address] documented in this encounter Visit Diagnoses Not on filedocumented in this encounter Care Teams Toy Assembler Wood Relationship Specialty Start Date End Date Marcio Carranza MD PCP - General 07/26/15 documented as of this encounter
--- OUTSIDE RECORDS SUMMARY | 2024-06-14 15:35 | XMS_ITS | Encounter Summary ---
Author Organization [facility] Address [address] [place] [address] Care Team Providers Care Maritime Guard Name Role Phone Marcio Carranza MD Primary Care Provider Unav ailable Encounter Details Date Type Department Care Team (Late st Contact Info) Description 06/27/2023 Lab Requisition [facility] Pathology & Laboratory Medicine - [address] [address] Outr Resulting Lab, Provider Social History Tobacco [...] IGA <1.2 <4.0 U/mL 07/01/2023 13:06 EDT [facility] Comment: A negative result may be due to IgA deficiency and does not rule out celiac disease. ? Negative: ??<4.0 U/mL ? Weak Positive: ??4.0 - 10.0 U/mL ? Positive: ??>10.0 U/mL Results were obtained with the ActionTax.caA Lite R h-tTG IgA CASE assay on the Nanosphere DSX. Blood VENOUS BLOOD / Unknown 06/27/2023 14:40 EDT 06/27/2023 21:30 EDT Provider Outr Resulting Lab IMMUNOLOGY A ND SEROLOGY ORDERABLES Performing Organization Address City/State/[facility] Co de Phone Number [facility] [address] [place] [address] documented in this encounter Visit Diagnoses Not on filedocumented in this encounter Care Teams Maritime Guard Relationship Specialty Start Date End Date Marcio Carranza MD PCP - General 07/26/15 documented as of this encounter
[2024-06-18 20:41] LABS: Calprotectin 116 mcg/g
== END 2024-06-14 15:21 | disposition home or self-care (01) ==
LOC: LBN 15:20
PROVIDERS: PCP Family Medicine; Visit Provider Internal Medicine Gastroenterology
DX: K51.019 Ulcerative (chronic) pancolitis with unspecified complications (principal)
CPT/HCPCS: 83993

== ENCOUNTER 2024-06-29 01:43 | Outpatient (CLI) | payer OTHER, SELFPAY ==
--- NOTE | 2024-06-29 14:15 | DI.RAD_ITS ---
Exam(s) XR FOOT RT COMPLETE EXAM: XR FOOT RT COMPLETE CLINICAL HISTORY: Fourth metatarsal pain,stress fx,rt foot pain,m79.671,m84.374a. TECHNIQUE: 2D digital imaging was performed. COMPARISON: CR XR FOOT RT COMPLETE from 06/02/2024 FINDINGS: 3 views No evidence of acute fracture or diastasis of the Lisfranc joint. Mild degenerative changes are note d at the great toe metatarsophalangeal joint. Moderate size inferior calcaneal spur again noted. En thesophyte is again noted on at posterior calcaneus insertion site of Achilles tendon. The previously described lung jejunal thickening of the cortex on the medial aspect of the diaphysis of the 2nd metatarsal is unchanged. There is no obvious fracture evident. IMPRESSION: As above but unchanged radiographically from 06/02/2024. DATA REPOSITORY: RADIATION DOSE DELIVERED:
== END 2024-06-29 02:03 ==
LOC: DI 01:43
PROVIDERS: PCP Family Medicine; Visit Provider Podiatrist
DX: M84.374A Stress fracture, right foot, initial encounter for fracture (principal)
CPT/HCPCS: 73630

== ENCOUNTER 2024-07-05 02:38 | Outpatient (CLI) | payer OTHER, SELFPAY ==
[2024-07-05 15:43] LABS: Abs Immature Grans 0.02 10^3/uL (0.0-0.06); Absolute Basophil Count 0.02 10^3/uL (0.0-0.2); Absolute Eosinophil Count 0.06 10^3/uL (0.0-0.7); Absolute Lymphocyte Count 1.85 10^3/uL (1.2-3.4); Absolute Monocyte Count 0.64 10^3/uL (0.1-0.8); Absolute Neutrophil Count 3.09 10^3/uL (1.2-6.7); Basophils % 0.4 %; Eosinophils % 1.1 %; HCT 38.1 % (36.0-46.0); HGB 12.5 g/dL (11.2-15.7); Immature Grans % 0.4 %; Lymphocytes % 32.6 %; MCH 30.6 pg (27.0-33.0); MCHC 32.8 % (32.0-36.0); MCV 93 fL (80-95); MPV 9.9 fL (8.0-11.0); Monocytes % 11.3 %; Neutrophils % 54.2 %; Platelet Count 265 10^3/uL (130-400); RBC 4.09 10^6/uL (3.93-5.22); RDW 13.7 % (11.7-14.6); RDW-SD 46.5 fL; WBC 5.68 10^3/uL (4.4-10.8)
[2024-07-05 17:32] LABS: ALT 29 U/L (14-59); AST 25 U/L (15-37); Alkaline Phosphatase 146 U/L (46-116); Bilirubin, Direct 0.1 mg/dL (0.0-0.2); Bilirubin, Total 0.38 mg/dL (0.2-1.0); C-Reactive Protein < 0.50 mg/dL (<or=0.5); GGT 50 U/L (5-55)
[2024-07-05 19:16] LABS: Vitamin D 25 Total 59.3 ng/mL (30-100)
[2024-07-07 14:45] LABS: CREATININE 1.6 mg/dL (0.55-1.02); Estimated GFR 36.01 (mL/min/1.73m2)
== END 2024-07-05 02:39 | disposition home or self-care (01) ==
PROVIDERS: Internal Medicine; PCP Family Medicine; Visit Provider Internal Medicine Gastroenterology
DX: R79.89 Other specified abnormal findings of blood chemistry (principal); Z79.899 Other long term (current) drug therapy; Z51.81 Encounter for therapeutic drug level monitoring; K51.90 Ulcerative colitis, unspecified, without complications; M45.2 Ankylosing spondylitis of cervical region; M16.0 Bilateral primary osteoarthritis of hip; M19.90 Unspecified osteoarthritis, unspecified site; M25.541 Pain in joints of right hand; M25.542 Pain in joints of left hand; K51.019 Ulcerative (chronic) pancolitis with unspecified complications
CPT/HCPCS: 36415; 80076; 82306; 82565; 82977; 85025; 86140

== ENCOUNTER 2024-07-26 03:20 | Outpatient (CLI) | payer OTHER, SELFPAY ==
[2024-07-26 15:25] LABS: Abs Immature Grans 0.02 10^3/uL (0.0-0.06); Absolute Basophil Count 0.03 10^3/uL (0.0-0.2); Absolute Eosinophil Count 0.09 10^3/uL (0.0-0.7); Absolute Lymphocyte Count 2.27 10^3/uL (1.2-3.4); Absolute Monocyte Count 0.62 10^3/uL (0.1-0.8); Absolute Neutrophil Count 2.76 10^3/uL (1.2-6.7); Basophils % 0.5 %; Eosinophils % 1.6 %; HCT 38.2 % (36.0-46.0); HGB 12.4 g/dL (11.2-15.7); Immature Grans % 0.3 %; Lymphocytes % 39.2 %; MCHC 32.5 % (32.0-36.0); MCV 93 fL (80-95); Monocytes % 10.7 %; Neutrophils % 47.7 %; Platelet Count 248 10^3/uL (130-400); RBC 4.13 10^6/uL (3.93-5.22); RDW 13.4 % (11.7-14.6); RDW-SD 45.8 fL; WBC 5.79 10^3/uL (4.4-10.8)
[2024-07-26 16:19] LABS: ALT 29 U/L (14-59); AST 25 U/L (15-37); Albumin 3.8 g/dL (3.4-5.0); Alkaline Phosphatase 155 U/L (46-116); Bilirubin, Direct 0.1 mg/dL (0.0-0.2); Bilirubin, Total 0.37 mg/dL (0.2-1.0); Total Protein 7.9 g/dL (6.4-8.2)
== END 2024-07-26 03:21 | disposition home or self-care (01) ==
PROVIDERS: PCP Family Medicine; Visit Provider Internal Medicine
DX: Z79.899 Other long term (current) drug therapy (principal); Z51.81 Encounter for therapeutic drug level monitoring; K51.90 Ulcerative colitis, unspecified, without complications; M45.2 Ankylosing spondylitis of cervical region; M16.0 Bilateral primary osteoarthritis of hip; M19.90 Unspecified osteoarthritis, unspecified site; M25.541 Pain in joints of right hand; M25.542 Pain in joints of left hand
CPT/HCPCS: 36415; 80076; 85025

== ENCOUNTER 2024-08-24 01:36 | Outpatient (CLI) | payer OTHER, SELFPAY ==
--- NOTE | 2024-08-24 07:30 | DI.RAD_ITS ---
Exam(s) XR FOOT RT COMPLETE EXAM: XR FOOT RT COMPLETE CLINICAL HISTORY: Pain in right foot,STRESS FX,M84.374A. TECHNIQUE: 2D digital imaging was performed. Three views. COMPARISON: CR XR FOOT RT COMPLETE from 02/03/2024 CR XR FOOT RT COMPLETE from 05/24/2024 CR XR FOOT RT COMPLETE from 06/02/2024 CR XR FOOT RT COMPLETE from 06/29/2024 FINDINGS: BONES: No acute fracture is present. Stable cortical thickening of the mid shaft of the 2nd metatars al, unchanged from prior exams back to February 05. No bony destructive lesion is seen. Heel spurs. JOINTS: No dislocation present. Mild degenerative changes 1st MTP joint. SOFT TISSUE: Normal. IMPRESSION: No acute abnormality. DATA REPOSITORY: RADIATION DOSE DELIVERED:
== END 2024-08-24 01:56 ==
LOC: DI 01:36
PROVIDERS: PCP Family Medicine; Visit Provider Podiatrist
DX: M79.671 Pain in right foot (principal)
CPT/HCPCS: 73630

== ENCOUNTER 2024-10-04 15:35 | Emergency (ER) | payer OTHER, SELFPAY ==
[2024-10-04] VITALS (15 sets, daily range): BP systolic 137–166; BP diastolic 71–89; PULSE 73–93; RESP 5–39; TEMP 36.6; O2SAT 97–100
--- NOTE | 2024-10-04 15:45 | RT.EKG_ITS ---
APPROVED REPORT Exam: Resting ECG Reason for Exam: SOB Patient Location: E HR:88 bpm ECG Measurements Heart Rate 88 AXIS SC 145 P 53 QRSd 93 QRS -14 QT 364 T 85 QTc 440 Conclusion Sinus rhythm 88 normal axis no stemi
--- OUTSIDE RECORDS SUMMARY | 2024-10-04 16:01 | XMS_ITS | Continuity of Care Document ---
Author Organization [facility] Address [address] [place] [phone] Encounter LTTL_FL FIN NBR [id number] Date(s): 06/13/23 - 06/13/[address] [address] [place] Discharge Disposition: Home or Self Care Attending Physician: NOEL ADEN M.D. Admitting Physician: NOEL ADEN M.D. Referring Physician: NOEL ADEN M.D. Results Laboratory List Name Date Sedimentation Rate (ESR) 06/13/23 Most recent to oldest [Reference Range]: 1 ESR, Westergren [0-20 mm/hr] 11 mm/hr (06/13/23 2:35 PM)
--- OUTSIDE RECORDS SUMMARY | 2024-10-04 16:01 | XMS_ITS | Data Portability ---
Author Organization [place] - [facility], [facility] [place] [address] Assessment No assessment recorded. Plan of Treatment Reminders Order Date Submit Date Provider Last Modified By Organization Details Last Modified Time Details Appointments None recorded. Lab urinalysis, dipstick 2022 023 [email or web address] [facility], [address] [place] [address], [address], [place], [address], 3 10:58:35 culture, urine + sensitivity 2022 023 [facility] (Registration ), [address] [place] [address] [place] [facility] [place], [address], 3 14:48:56 urinalysis, microscopic 2022 023 [facility] (Registration ), [address] [place] [address] [place], [address], 3 15:34:28 Referral None recorded. Procedures None recorded. Surgeries None recorded. Imaging XR, foot, 3 or more view 2023 024 [facility] (Radiology), [address] [place] [address] [place], [address], 4 08:43:41 XR, ankle, 3 or more view 2023 024 [facility] (Radiology), [address] [place] [address] [place], [address], 09:39:49 Medication Orders sulfamethox azole 800 mg-trimetho prim 160 mg tablet 2022 023 [email or web address] r1 [facility], [address] [place], [address], 4 14:10:03 Bactrim DS 800 mg-160 mg tablet 2022 023 ablackete r1 [facility], [address] [place], [address], 14:10:03 Patient TargetsNo targets recorded. Patient Instructions Encounter Date Encounter Id Patient Instructions Last Modified By Organization Details Last Modified Time 09/11/2023 [id number] 1. Your symptoms and your urine dip [...] that. [email or web address] Not available 09/11/2023 10:53:19 02/03/2024 [id number] 3 week old injury, barely able to [...] Name Description Value Unit Range Abnormal Flag Note LastModifiedBy Organization Detail LastModifiedTime 09/11/2009/11/2023 URINA LYSIS color Yellow yellow Not Available [facility] (Registration ) [address] [place] [address] [place], [address], 09/11/2023 18:01:06 09/11/20 23 09/11/2023 URINA LYSIS clarity Turbid clear Not Available [facility] (Registration ) [address] [place] [address] [place], [address], 09/11/2023 18:01:06 09/11/20 23 09/11/2023 URINA LYSIS specific gravity 1.025 1.005- 1.025 normal Not Available [facility] (Registration ) [address] [place] [address] [place], [address], 09/11/2023 18:01:06 09/11/20 23 09/11/2023 URINA LYSIS pH 5.5 5-8 normal Not Available [facility] (Registration ) [address] [place] [address] [place], [address], 09/11/2023 18:01:06 09/11/20 23 09/11/2023 URINA LYSIS leukocyte esterase Large negati ve abnormal Not Available [facility] (Registration ) [address] [place] [address] [place], [address], 09/11/2023 18:01:06 09/11/20 23 09/11/2023 URINA LYSIS nitrite Positi ve negati ve abnormal Not Available [facility] (Registration ) [address] [place] [address] [place], [address], 09/11/2023 18:01:06 09/11/20 23 09/11/2023 URINA LYSIS protein 100 mg/dL negati ve abnormal Not Available [facility] (Registration ) [address] [place] [address] [place], [address], 09/11/2023 18:01:06 09/11/20 23 09/11/2023 URINA LYSIS glucose Negati ve mg/dL negati ve Not Available [facility] (Registration ) [address] [place] [address] [place], [address], 09/11/2023 18:01:06 09/11/20 23 09/11/2023 URINA LYSIS ketones Negati ve mg/dL negati ve Not Available [facility] (Registration ) [address] [place] [address] [place], [address], 09/11/2023 18:01:06 09/11/20 23 09/11/2023 URINA LYSIS urobilinogen 0.2 mg/dL up to 0.2 Not Available [facility] (Registration ) [address] [place] [address] [place], [address], 09/11/2023 18:01:06 09/11/20 23 09/11/2023 URINA LYSIS bilirubin Negati ve negati ve Not Available [facility] (Registration ) [address] [place] [address] [place], [address], 09/11/2023 18:01:06 09/11/20 23 09/11/2023 URINA LYSIS blood Modera te negati ve abnormal Not Available [facility] (Registration ) [address] [place] [address] [place], [address], 09/11/2023 18:01:06 09/11/20 23 09/11/2023 URINA LYSIS color Yellow yellow Not Available [facility] (Registration ) [address] [place] [address] [place], [address], 09/11/2023 18:06:07 09/11/20 23 09/11/2023 URINA LYSIS clarity Turbid clear Not Available [facility] (Registration ) [address] [place] [address] [place], [address], 09/11/2023 18:06:07 09/11/20 23 09/11/2023 URINA LYSIS specific gravity 1.025 1.005- 1.025 normal Not Available [facility] (Registration ) [address] [place] [address] [place], [address], 09/11/2023 18:06:07 09/11/20 23 09/11/2023 URINA LYSIS pH 5.5 5-8 normal Not Available [facility] (Registration ) [address] [place] [address] [place], [address], 09/11/2023 18:06:07 09/11/20 23 09/11/2023 URINA LYSIS leukocyte esterase Large negati ve abnormal Not Available [facility] (Registration ) [address] [place] [address] [place], [address], 09/11/2023 18:06:07 09/11/20 23 09/11/2023 URINA LYSIS nitrite Positi ve negati ve abnormal Not Available [facility] (Registration ) [address] [place] [address] [place], [address], 09/11/2023 18:06:07 09/11/20 23 09/11/2023 URINA LYSIS protein 100 mg/dL negati ve abnormal Not Available [facility] (Registration ) [address] [place] [address] [place], [address], 09/11/2023 18:06:07 09/11/20 23 09/11/2023 URINA LYSIS glucose Negati ve mg/dL negati ve Not Available [facility] (Registration ) [address] [place] [address] [place], [address], 09/11/2023 18:06:07 09/11/20 23 09/11/2023 URINA LYSIS ketones Negati ve mg/dL negati ve Not Available [facility] (Registration ) [address] [place] [address] [place], [address], 09/11/2023 18:06:07 09/11/20 23 09/11/2023 URINA LYSIS urobilinogen 0.2 mg/dL up to 0.2 Not Available [facility] (Registration ) [address] [place] [address] [place], [address], 09/11/2023 18:06:07 09/11/20 23 09/11/2023 URINA LYSIS bilirubin Negati ve negati ve Not Available [facility] (Registration ) [address] [place] [address] [place], [address], 09/11/2023 18:06:07 09/11/20 23 09/11/2023 URINA LYSIS blood Modera te negati ve abnormal Not Available [facility] (Registration ) [address] [place] [address] [place], [address], 09/11/2023 18:06:07 09/11/20 23 09/11/2023 MICRO SCOPI C FINDI NGS WBC >50 hpf 0-5 abnormal WBC's obscu re micro scopi c exam. Not Available [facility] (Registration ) [address] [place] [address] [place], [address], 09/11/2023 18:06:08 09/11/20 23 09/11/2023 MICRO SCOPI C FINDI NGS C S indicated? C S Done As Ordere d Not Available [facility] (Registration ) [address] [place] [address] [place], [address], 09/11/2023 18:06:08 09/11/20 23 09/12/2023 URINE CULTU RE urine culture Urine Cultu re ACTIO N SUSCE PTIBI LITY TO FOLLO W APPEA MARIBETH Gram Negat juan alberto Venkat COLON Y COUNT Not Available [address] [place], [address] 09/12/2023 11:17:32 09/11/20 23 09/12/2023 URINE CULTU RE urine culture colon ies/m L >100, 000 Day 1 Resul t ISOLA PRAMOD BELOW O:ESC COL (ORGA NISM ID: [id number]) - Esche dary a coli Urine Cultu re (ORGA NISM ID: 1.1) - COLON Y COUNT (ORGA NISM ID: 1.1) - >100, 000 Not Available [address] [place], [address] 09/12/2023 11:17:32 09/11/20 23 09/13/2023 URINE CULTU RE urine culture Urine Cultu re ACTIO N SUSCE PTIBI LITY TO FOLLO W APPEA MARIBETH Gram Negat juan alberto Venkat APPEA MARIBETH Gram Negat juan alberto Venkat COLON Y COUNT Not Available [facility] (Registration ) [address] [place] [address] [place], [address], 09/13/2023 07:56:15 09/11/20 23 09/13/2023 URINE CULTU RE urine culture colon ies/m L >100, 000 COLON Y COUNT >100, 000 Day 1 Resul t ISOLA PRAMOD BELOW Day 2 Resul t ISOLA PRAMOD BELOW O:ESC COL (ORGA NISM ID: 1.1) - Esche dary a coli Urine Cultu re (ORGA NISM ID: 1.1) - COLON Y COUNT (ORGA NISM ID: 1.1) - >100, 000 ORGAN ISM ID: 1.1 ANTIB IOTIC INTER PRETA TION VERNON STATU S Ampic illin S <=2 F Ampic illin /Sulb actam S <=2 F Cefaz diana S <=4 F Cefta zidim e S <=1 F CEFTR IAXON E S <=1 F Cipro floxa nash S <=0.2 5 F Genta micin S <=1 F Nitro furan toin S <=16 F Imipe nem S <=0.2 5 F Levof loxac in S <=0.1 2 F Tobra mycin S <=1 F Trime thopr im/Shaver lfame thoxa zole S <=20 F Piper acill in/Ta zobac mcconnell S <=4 F Not Available [facility] (Registration ) [address] [place] [address] [place], [address], 09/13/2023 07:56:15 09/11/20 23 09/11/2023 urina lysis , dipst ick Leukocytes Large Not Available [address], [place], [address], 09/11/2023 10:43:31 09/11/20 23 09/11/2023 urina lysis , dipst ick Nitrite positi ve Not Available [address], [place], [address], 09/11/2023 10:43:31 09/11/20 23 09/11/2023 urina lysis , dipst ick Urobilinogen .2 Not Available [address], [place], [address], 09/11/2023 10:43:31 09/11/20 23 09/11/2023 urina lysis , dipst ick Protein 100 Not Available [address], [place], [address], 09/11/2023 10:43:31 09/11/20 23 09/11/2023 urina lysis , dipst ick pH 5.0 Not Available [address], [place], [address], 09/11/2023 10:43:31 09/11/20 23 09/11/2023 urina lysis , dipst ick Blood Large Not Available [address], [place], [address], 09/11/2023 10:43:31 09/11/20 23 09/11/2023 urina lysis , dipst ick Specific [place] 1.020 Not Available [address], [place], [address], 09/11/2023 10:43:31 09/11/20 23 09/11/2023 urina lysis , dipst ick Ketone Negati ve Not Available [address], [place], [address], 09/11/2023 10:43:31 09/11/20 23 09/11/2023 urina lysis , dipst ick Bilirubin Negati ve Not Available [address], [place], [address], 09/11/2023 10:43:31 09/11/20 23 09/11/2023 urina lysis , dipst ick Glucose Negati ve Not Available [address], [place], [address], 09/11/2023 10:43:31 09/11/20 23 09/11/2023 urina lysis , dipst ick Appearance Cloudy Not Available [address], [place], [address], 09/11/2023 10:43:31 09/11/20 23 09/11/2023 urina lysis , dipst ick Color Dark Yellow Not Available [address], [place], [address], 09/11/2023 10:43:31 09/12/20 23 09/12/2023 MAMMO , diagn ostic , bilat eral No observ ation record ed. [email or web address] Not Available 2023 08:33:00 09/12/20 23 09/12/2023 colon oscop y outco mes repor ting* No observ ation record ed. BARCODE Not Available 2022 18:13:48 02/04/20 24 02/03/2024 XR, foot, 3 or more view No observ ation record ed. [email or web address] [facility] (Radiology) [address] , [place], [address], 02/17/2024 08:43:41 02/04/20 24 02/03/2024 XR, ankle , 3 or more view No observ ation record ed. [facility] (Radiology) [address] [place] [address] [place], [address], 02/04/2024 12:36:17 Result Notes None recorded. Problems Name Problem SNOMED Code Status Onset Date Resolution Date Notes Provider Name and Address Organization Details Recorded Time Acute urinary tract infection 806648512 Active [address], [place], [address] [place] [address] 10:58:31 Problem Notes None recorded. Procedures Surgical History None recorded. Imaging Results Imaging Date Name Status LastModified by Organiz ation Details LastModified Time 09/12/2023 MAMMO, diagnostic, bilateral completed [email or web address] Information not available 09/15/2023 08:33:00 09/12/2023 colonoscopy outcomes reporting* completed BARCODE Information not available 09/12/2023 18:13:48 02/03/2024 XR, foot, 3 or more view completed [email or web address] [facility] (Radiology) [address] [place] [address] [place], [address], 02/17/2024 08:43:41 02/03/2024 XR, ankle, 3 or more view completed [facility] (Radiology) [address] [place] [address] [place], [address], 02/04/2024 12:36:17 Procedure Notes None recorded. Medical Equipment None Reported. Allergies Allergen ID Allergen Name Allergen Category Reaction Reaction Severity Criticality Documentation Date Start Date Code Code System Note Provider Name and Address Organization Details Recorded Time 42121 ibuprofen medicatio n chest pain Not available Not available 09/11/2023 5640 RxNorm AUNG David [facility] 10:31:10 33418 cephalexi n medicatio n vomiting Not available Not available 09/11/2023 2231 RxNoAUNG Warren, [facility] 10:31:32 02758 Augmentin medicatio n vomiting Not available Not available 09/11/2023 59709 2 RxNorm Ivelisse Austin AUNG [facility], [facility] 3 10:31:46 93734 doxycycli ne Not available vomiting Not available Not available 09/11/2023 3640 RxNorm Ivelisse Austin AUNG [facility], [facility] 3 10:32:46 39439 Celebrex medicatio n rash Not available Not available 09/11/2023 59020 7 RxNorm Ivelisse Austin AUNG [facility], [facility] 3 10:33:10 84832 etodolac medicatio n itching mild low 02/03/2024 21604 RxNorm Tongu e itchi germain Bailey RN [facility] 4 14:09:51 Medications Name Sig Start Date [...] Updated DateTime 3 165.1 cm 28.1 kg/m2 38713.1 1 g 20 /min 97.8 [degF] 78 /min 99 % 99 % 147 mm[Hg] 79 mm[Hg] Ivelisse Austin MA [facility] 3 10:28:37 Date Recorded Body height Body mass index (BMI) Body weight Body temperature Oxygen saturation Oxygen saturation in Arterial blood by Pulse oximetry Heart rate Respiratory rate Systolic blood pressure Diastolic blood pressure Provider Name and Address Organization Details Last Updated DateTime 4 165.1 cm 29.5 kg/m2 30692.8 5 g 97.8 [degF] 97 % 97 % 82 /min 16 /min 135 mm[Hg] 76 mm[Hg] Mai Bailey RN [facility] 4 14:07:30 Social History Question Answer Notes LastModified by Organizat ion Details LastModified Time Tobacco Smoking Status Never Smoker Ivelisse Austin MA [facility], [facility] 09/11/2023 10:39:24 What Was The [...] 0 0 Immunizations Vaccine Type Date Status Note Provider Nam e and Address Organization Details Recorded Time Tdap 0 completed FRANCESCA Yancey, [facility] 09/11/2023 15:09:38 influenza, unspecified formulation 3 completed FRANCESCA Yancey, [facility] 09/11/2023 15:09:46 COVID-19, mRNA, LNP-S, bivalent, PF, 10 mcg/0.2 mL 1 completed FRANCESCA Yancey, [facility] 09/11/2023 15:09:59 COVID-19, mRNA, LNP-S, bivalent, PF, 10 mcg/0.2 mL 1 completed FRANCESCA Yancey, [facility] 09/11/2023 15:10:02 COVID-19, mRNA, LNP-S, bivalent, PF, 10 mcg/0.2 mL 1 completed FRANCESCA Yancey, [facility] 09/11/2023 15:10:05 COVID-19, mRNA, LNP-S, bivalent, PF, 10 mcg/0.2 mL 2 completed FRANCESCA Yancey, [facility] 09/11/2023 15:10:09 COVID-19, mRNA, LNP-S, PF, 30 mcg/0.3 mL dose, jose angel-sucrose 3 completed FRANCESCA Yancey, [facility] 09/11/2023 15:10:20 Pneumococcal conjugate PCV 13 6 completed FRANCESCA Yancey, [facility] 09/11/2023 15:13:46 pneumococcal, unspecified formulation 4 completed FRANCESCA Yancey, [facility] 09/11/2023 15:14:06 zoster, unspecified formulation 0 completed Tania Loving RN null, [facility] 09/11/2023 15:14:23 zoster, unspecified formulation 0 completed Tania Loving RN null, [facility] 09/11/2023 15:14:27 influenza, unspecified formulation 3 completed Tania Loving RN null, [facility] 09/11/2023 15:14:41 Past Encounters Encounter ID Performer Location Encounter Start Date Encounter Closed Date Diagnosis/Indication Diagnosis SNOMED-CT Code Diagnosis ICD10 Code Diagnosis Note [id number] TOM MARKS PA-C [address],[facility] [address] [place] [address] 09/11/2023 10:04:02 09/11/2023 10:56:49 Acute urinary tract infection 668856529 N39.0 patient has had symptoms concerning for UTI that seem to develop around Thanksgivi ng. She initially thought it was related to kidney stone which she has passed on 1 previous occasion. She has been calling daily to her primary care office to try to get in but has not been able to get an appointmen t. She actually spoke With the nurse there today who recommende d that she come to urgent care. Her urine dip here with large leukocytes , positive nitrites, large blood. Will be sent for urine microscopy and culture. Patient is without CVA tenderness . She is not having fever. She does have some suprapubic pressure. She did complain of seeing some spotting with wiping in the last week. Considered concerns for things such as fibroids or cancer in the setting of bleeding after menopause however she states she has had hysterecto my in 2018 making me less concerned for this. This is likely coming from the urinary tract infection. I will start her on Bactrim 1 tab p.o. twice daily x 7 days. She is given her first dose while here. She is immune compromise d with ankylosing spondylosi s and ulcerative colitis and on written Sarah. Because the symptoms have been going for 1 month I have educated her that if symptoms do not completely resolve after the 7-day course of medication that she should present for reevaluati on as she is someone who may need an extended course of medication . At this point I do not feel that presentati on represents pyelonephr itis given her lack of back pain and fevers. presentati on also seems less likely concerning for kidney stones at this point. [id number] Alexis Argueta MD [address] [place] [address] 02/03/2024 13:49:12 02/03/2024 15:01:40 Sprain of right ankle 8742334288 [id number] S93.401A Health Concerns Section Related Observation LastModified by Organization Detai ls LastModified Time None Recorded Concern Status LastModified by Organization Details LastModified Time None Recorded Advance Directives Directive None Recorded Payers Encounter Date Sequence Insurance Name Policy Number Policy Adorno Covered Member ID Adorno Member ID Guarantor Name 09/11/2023 2 [facility] Lucien Funes [id number] Kim Mayjames Funes 02/03/2024 1 R [id number] Kim Covarrubias Shantel [id number] Kim Covarrubias Shantel 02/03/2024 2 [facility] Lucien Funes [id number] Kim Covarrubias Shantel Notes Date Note Type Note Provider Name and Address Organization Details Recorded Time 09/11/2023 text/html Kim is a 63-year-old female who presents with concerns for urinary tract infection. Prior to she had some pain on the left [...] to the bathroom constantly during the day. [address], [place], [address], [facility]. 09/11/2023 11:13:31 02/03/2024 text/html Pt twisted ankle 3 weeks ago, a couple of times reinjured it since then. Painful to WB, has never used crutches. Alexis Argueta MD [address], [place], [address], [facility]. 02/03/2024 16:05:12 OBGyn Episode No OBEpisode recorded.
--- OUTSIDE RECORDS SUMMARY | 2024-10-04 16:02 | XMS_ITS | Encounter Summary ---
Author Organization [facility] Address [facility] [place] [address] Care Team Providers Care Magazine Editor Name Role Phone Marcio Devlin DO Primary Care Provider Encounter Details Date Type Department Care Team (Late st Contact Info) Description 09/29/2024 Refill [place] [address] Gabe Fong MD [facility] [place] [address] Social History Tobacco Use Types Packs/Day Years Used Date Smoking Tobacco: Never Smokeless Tobacco: Never Alcohol Use Standard Drinks/Week Comments Yes 0 (1 standard drink = 0.6 oz pure alcohol) once every couple of months or less [facility] Utilities Answer Date Recorded In the past 12 months has [facility] electric, gas, oil, or water [employer] threatened to shut off services in your [...] the money to buy more. Never true 02/06/20 24 Within the past 12 months, t [...] Care Team (Late st Contact Info) Description 10/16/2024 10:00 AM EST Hospital Encounter Non-[place] [address] Arrived 11/12/2024 8:00 AM EST Appointment Mammography/[place] [address] Gabe Fong MD [facility] [place] [address] 11/30/2024 2:30 PM EDT Office Visit [place] [address] Gabe Fong MD [facility] [place] [address] 12/07/2024 2:30 PM EDT TH Visit (TeleHealth) [place] [address] Rosemarie Morrow APRN [facility] [place] [address] documented as of this encounter Visit Diagnoses Not on filedocumented in this encounter Care Teams Magazine Editor Relationship Specialty Start Date End Date Marcio Devlin DO [address] [place] [address] PCP - General Family Medicine 11/11/17 documented as of this encounter
--- OUTSIDE RECORDS SUMMARY | 2024-10-04 16:02 | XMS_ITS | Encounter Summary ---
Author Organization [facility] [place] [address] Care Team Providers Care Manager Media Name Role Phone Marcio Devlin DO Primary Care Provider [phone] Encounter Details Date Type Department Care Team (Latest Contact Info) Description 08/19/2024 Travel Social History Tobacco Use Types Packs/Day [...] AM EST Hospital Encounter Non-Invasive [place] [address] Arrived 11/12/2024 8:00 AM EST Appointment Mammography/[place] [address] Gabe Fong MD [facility] [address] [place] [address] 11/30/2024 2:30 PM EDT Office [place] [address] Gabe Fong MD [facility] [address] [place] [address] 12/07/2024 2:30 PM EDT TH Visit (TeleHealth) [place] [address] Rosemarie Morrow, SKIP [facility] [place] [address] documented as of this encounter Visit Diagnoses Not on filedocumented in this encounter Care Teams Manager Media Relationship Specialty Start Date End Date Marcio eDvlin DO [address] [place] [address] PCP - General Family Medicine 11/11/17 documented as of this encounter
--- OUTSIDE RECORDS SUMMARY | 2024-10-04 16:02 | XMS_ITS | Encounter Summary ---
Author Organization Formerly [facility] [place] [address] Care Team Providers Care Rn Quality Name Role Phone Marcio Devlin DO Primary Care Provider [phone] Reason for Referral * Diagnostic Test (Routine) - Closed Specialty Diagnoses / Procedures Referred By Contac t Referred To Contact Cardiology Diagnoses Complete heart block Procedures Echocardiogram Transthoracic Luis Alfredo Velazquez MD [facility] [place] [address] [facility] [place] [address] Referral ID Status Reason Start Date Expiration Date V isits Requested Visits Authorized [id number] Closed Specialty Service Requested 11/26/2023 11/25/2024 1 1 Reason for Visit * Diagnostic Test (Routine) - Closed Specialty Diagnoses / Procedures Referred By Contac t Referred To Contact Cardiology Diagnoses Complete heart block Procedures Echocardiogram Transthoracic Luis Alfredo Velazquez MD [facility] [place] [address] [facility] [place] [address] Referral ID Status Reason Start Date Expiration Date V isits Requested Visits Authorized [id number] Closed Specialty Service Requested 11/26/2023 11/25/2024 1 1 Encounter Details Date Type Department Care Team (Latest Contact Info) Description 07/02/2024 1:32 PM EDT - 07/02/2024 11:59 PM EDT Hospital Encounter Non-[place] [phone] Luis Alfredo Velazquez MD [facility] [place] [address] Complete heart block Discharge Disposition: Home Social History Tobacco Use Types Packs/Day Years Used Date Smoking Tobacco: Never Smokeless Tobacco: Never Alcohol Use Standard Drinks/Week Comments Yes 0 (1 standard drink = 0.6 oz pure alcohol) once every couple of months or less [facility] Utilities Answer Date Recorded In the past 12 months has th e [employer], gas, oil, or water [employer] threatened to shut off services in [...] slept in a retirement (including now)? No 10/21/2023 DH IPV Inpatient [...] Sig Dispensed Refills Start Date End Date amLODIPine (Norvasc) 10 mg tablet Take 1 tablet by mouth daily. 07/02/2024 atorvastatin (Lipitor) 40 mg tablet 11/24/2023 losartan (Cozaar) 100 mg tablet Take 1 tablet by mouth Daily at Noon. 11/11/2023 clindamycin (CLEOCIN T) 1 % LotionIndications:Folli culitis Apply to affected areas on abdomen twice daily for ten days. 60 mL 10/22/2023 Asmanex HFA 200 mcg/actuation HFA Aerosol Inhaler Inhale 1 puff into the lungs daily. 07/12/2023 fish oil-omega-3 fatty acids 1,000 mg Capsule Take 2 g by mouth 2 times daily. cholecalciferol, Vitamin D3, (Vitamin D3) 1,000 [...] by mouth daily. SUMAtriptan (IMITREX) 20 mg/actuation [place], Non-Aerosol 1 spray as needed. 11/03/2017 metFORMIN [...] TAKE 1 TABLET DAILY 90 tablet 05/26/2024 08/18/2024 documented as of this encounter Plan of Treatment Upcoming Encounters Date Type Department Care Team (Late st Contact Info) Description 10/16/2024 10:00 AM EST Hospital Encounter Non-Invasive Cardiology Lab [place] [phone] Arrived 11/12/2024 8:00 AM EST Appointment Mammography/DXA at [place] [phone] Gabe Fong MD [facility] [place] [address] 11/30/2024 2:30 PM EDT Office Visit Rheumatology at [place] [phone] Gabe Fong MD [facility] [place] [address] 12/07/2024 2:30 PM EDT TH Visit (TeleHealth) Gastroenterology at [place] [phone] Rosemarie Morrow APRN [facility] [place] [address] documented as of this encounter Procedures Procedure Name Priority Date/Time Associated Diagnosis Comments ECHO COMPLETE Routine 07/02/2024 2:47 PM EDT Complete heart block documented in this encounter Results * ECHO COMPLETE (07/02/2024 2:47 PM EDT) Anatomical Region Laterality Modality Cardiac Other 07/02/2024 2:00 PM EDT Narrative 07/02/2024 3:40 PM EDT [address] [place] [address] ? Echocardiogram Report Name: KIM PEREZ Dajuan ? Study Date: 07/02/2024 02:00 PMBP: 148/54 mmHg ? HR: 76 : 1960 ? Height: 166 cm ? Account: [id number] Age: 64 yrs ? Weight: 81 kg Gender: Female ?BSA: 1.9 m2 Ordering Physician: Luis Alfredo Velazquez MD Referring Physician: Luis Alfredo Velazquez MD Performed By: Ruchi Asher RDCS Reason For Study: Complete heart block Exam Location: [facility]. Interpretation Summary Left ventricular size and systolic function is normal. The left ventricular ejection fraction is 63% by Elliott's biplane. There are no segmental wall motion abnormalities. Right ventricular systolic function is normal. No significant valvular disease. No significant change from prior. Procedure Complete-[id number]. Satisfactory quality. Left Ventricle Left ventricle is of normal size. Wall thickness is normal. Moderately increased thickness of the basal septum with no obstruction to LV outflow. Left ventricular systolic function is normal. The left ventricular ejection fraction is 63% by Elliott's biplane. There are no segmental wall motion abnormalities. Right Ventricle The right ventricle is of normal size. There is a CIED lead in the right ventricle. Right ventricular systolic function is normal. Left Atrium The left atrium is mildly dilated. No abnormality of the interatrial septum is identified. Right Atrium The right atrium is normal. Aortic Valve The aortic valve is tricuspid. The noncoronary cusp of the aortic valve is mildly thickened. There is no aortic stenosis. There is no aortic regurgitation. Mitral Valve The mitral valve is structurally normal. There is mild mitral regurgitation. Tricuspid Valve The tricuspid valve is structurally and functionally normal. There is mild tricuspid regurgitation. Pulmonic Valve The pulmonic valve appears to be structurally and functionally normal. Great Arteries The aortic root is of normal size. No abnormalities are identified. No abnormalities of the pulmonary artery are identified. Venous Inferior vena cava is normal in size. Inferior vena cava collapse greater than 50% with respiration. Pericardium/Pleural The pericardium appears normal. Hemodynamics The peak right ventricular systolic pressure is 23 mmHg. The estimated right atrial pressure is 3mmHg. Left ventricular diastolic function is normal. Left ventricular filling pressure is normal. Ejection Fraction ?2D Measurements ? Volumes EF(MOD-bp): 62.5 % ?IVSd: 1.1 cm ? LAV(MOD- bp) Indexed: ?LVIDd: 5.2 cm ?LVIDs: 3.3 cm ?36.4 ml/m2 ?LVPWd: 1.1 cm ?RA A4Cs_phl: 11.6 cm2 ? EDV(MOD-bp) Indexed: ?RWT: 0.41 {ratio} ?LV mass(C)d: 206.5 grams ? 56.3 ml/m2 ?LV mass(C)dI: 109.1 grams/m2 ?? ESV(MOD- bp) Indexed: ?Ao root diam: 3.0 cm ? 21.1 ml/m2 ?Ao root diam index: 1.6 ?SV(LVOT): 77.1 ml ?asc Aorta Diam: 3.1 cm ? LV Stroke Volume: 85.0 ml ?LVOT diam: 2.0 cm ? SI(LVOT): 40.7 ml/m2 Doppler LV V1 VTI: 25.5 cm LVOT max Velocity: 116.2 cm/sec Ao Max Soham: 150.6 cm/sec Ao valve max: 9.1 mmHg MV E max soham: 70.3 cm/sec MV A max soham: 78.3 cm/sec MV E/A: 0.90 MV dec time: 0.17 sec Lat Peak E' Soham: 14.0 cm/sec E/e' (lat): 5.0 Med Peak E' Soham: 7.8 cm/sec E/e' (med): 9.0 E/e' Average: 7.0 TR max soham: 222.6 cm/sec I ?WMSI = 1.00 ? % Normal = 100 ?Segments ??Size X - Cannot ?? 1 - Normal ?? 2 - ? 3 - Akinetic 4 - ?1-2 ? small Interpret ? Hypokinetic ?Dyskinetic ?? 3-5 ? moderate 5 - ? 6-14 ?large Aneurysmal ?15-16 ?? diffuse Procedure Note Elle Lin MD - 07/02/2024 1 [place] [id number] Echocardiogram Report Name: KIM PEREZ Study Date: 402:00 PMBP: 148/54 mmHg HR: 76 : 1960 Height: 166 cm Account: [id number] Age: 64 yrs Weight: 81 kg Gender: Female BSA: 1.9 m2 Ordering Physician: Luis Alfredo Velazquez MD Referring Physician: Luis Alfredo Velazquez MD Performed By: Ruchi Asher RDCS Reason For Study: Complete heart block Exam Location: [facility]. Interpretation Summary Left ventricular size and systolic function is normal. The leftventricular ejection fraction is 63% by Elliott's biplane. There are no segmental wallmotion abnormalities. Right ventricular systolic function is normal. No significant valvular disease. No significant change from prior. Procedure Complete-[id number]. Satisfactory quality. Left Ventricle Left ventricle is of normal size. Wall thickness is normal. Moderatelyincreased thickness of the basal septum with no obstruction to LV outflow. Leftventricular systolic function is normal. The left ventricular ejection fraction is 63%by Elliott's biplane. There are no segmental wall motion abnormalities. Right Ventricle The right ventricle is of normal size. There is a CIED lead in the right ventricle. Right ventricular systolic function is normal. Left Atrium The left atrium is mildly dilated. No abnormality of the interatrialseptum is identified. Right Atrium The right atrium is normal. Aortic Valve The aortic valve is tricuspid. The noncoronary cusp of the aortic valve ismildly thickened. There is no aortic stenosis. There is no aorticregurgitation. Mitral Valve The mitral valve is structurally normal. There is mild mitralregurgitation. Tricuspid Valve The tricuspid valve is structurally and functionally normal. There ismild tricuspid regurgitation. Pulmonic Valve The pulmonic valve appears to be structurally and functionally normal. Great Arteries The aortic root is of normal size. No abnormalities are identified. No abnormalities of the pulmonary artery are identified. Venous Inferior vena cava is normal in size. Inferior vena cava collapse greaterthan 50% with respiration. Pericardium/Pleural The pericardium appears normal. Hemodynamics The peak right ventricular systolic pressure is 23 mmHg. The estimatedright atrial pressure is 3mmHg. Left ventricular diastolic function is normal.Left ventricular filling pressure is normal. Ejection Fraction 2D Measurements Volumes EF(MOD-bp): 62.5 % IVSd: 1.1 cm LAV(MOD-bp)Indexed: LVIDd: 5.2 cm LVIDs: 3.3 cm 36.4 ml/m2 LVPWd: 1.1 cm RA A4Cs_phl: 11.6cm2 EDV(MOD-bp)Indexed: RWT: 0.41 {ratio} LV mass(C)d: 206.5 grams 56.3 ml/m2 LV mass(C)dI: 109.1 grams/m2 ESV(MOD-bp)Indexed: Ao root diam: 3.0 cm 21.1 ml/m2 Ao root diam index: 1.6 SV(LVOT): 77.1ml asc Aorta Diam: 3.1 cm LV Stroke Volume:85.0 ml LVOT diam: 2.0 cm SI(LVOT): 40.7ml/m2 Doppler LV V1 VTI: 25.5 cm LVOT max Velocity: 116.2 cm/sec Ao Max Soham: 150.6 cm/sec Ao valve max: 9.1 mmHg MV E max soham: 70.3 cm/sec MV A max soham: 78.3 cm/sec MV E/A: 0.90 MV dec time: 0.17 sec Lat Peak E' Soham: 14.0 cm/sec E/e' (lat): 5.0 Med Peak E' Soham: 7.8 cm/sec E/e' (med): 9.0 E/e' Average: 7.0 TR max soham: 222.6 cm/sec I WMSI = 1.00 % Normal = 100 SegmentsSize X - Cannot 1 - Normal 2 - 3 - Akinetic 4 - 1-2small Interpret Hypokinetic Dyskinetic 3-5moderate 5 - 6-14large Aneurysmal 15-16diffuse Luis Alfredo Velazquez MD ECHO ORDERABLES documented in this encounter Visit Diagnoses Diagnosis Complete heart block Atrioventricular block, complete documented in this encounter Care Teams Rn Quality Relationship Specialty Start Date End Date Marcio Devlin DO [address] [place] [address] PCP - General Family Medicine 11/11/17 documented as of this encounter
--- OUTSIDE RECORDS SUMMARY | 2024-10-04 16:02 | XMS_ITS | Encounter Summary ---
Author Organization [facility] [place] [address] Care Team Providers Care Box Folding Machine Operator Name Role Phone Marcio Devlin DO Primary Care Provider [phone] Encounter Details Date Type Department Care Team (Latest Contact Info) Description 07/27/2024 5:00 PM EST Laboratory Appointment Lab [address] [place] [phone] High risk medication use; Medication monitoring encounter; [...] once every couple of months or less [facility] Utilities Answer Date Recorded In the past 12 months has [employer] electric, gas, oil, or water company threatened [...] AM EST Hospital Encounter Non-[place] [phone] Arrived 11/12/2024 8:00 AM EST Appointment Mammography/[place] [phone] Gabe Fong MD [facility] [place] [address] [place] [address] 11/30/2024 2:30 PM EDT Office [place] [phone] Gabe Fong MD [facility] [place] [address] 12/07/2024 2:30 PM EDT TH Visit (TeleHealth) [place] [phone] Rosemarie Morrow APRN [facility] GASTROENTEROLOGY [place], [place] [phone] documented as of this encounter Procedures Procedure Name Priority Date/Time Associated Diagnosis Comments CREATININE STAT 07/27/2024 2:28 PM EST High risk medication use Medication monitoring encounter Ulcerative colitis without complications, unspecified location Ankylosing spondylitis of cervical region LIPID PANEL (REFLEX DIRECT LDL) Add-On 07/27/2024 2:28 PM EST High risk medication use Medication monitoring encounter Ulcerative colitis without complications, unspecified location Ankylosing spondylitis of cervical region Primary osteoarthritis of both hips Inflammatory arthropathy Arthralgia of both hands documented in this encounter Results * Lipid Panel (Reflex Direct LDL) (07/27/2024 2:28 PM EST) Cholesterol, Total 151 mg/dL 07/27/2024 3:42 PM [facility] Comment: Desirable: < 200 mg/dL Borderline High: 200 - 239 mg/dL High: > or = 240 mg/dL Triglyceride 324 mg/dL 07/27/2024 3:[address] [facility] Comment: Normal: <150 mg/dL Borderline High: 150-199 mg/dL High: 200-499 mg/dL Very High: > or =500 mg/dL HDL Cholesterol 46 mg/dL 4 3:42 PM [facility] Comment:Female: High Risk: < 50 mg/dL LDL Cholesterol 55 mg/dL 4 3:42 PM [facility] Comment: Desirable: <100 mg/dL Above Desirable: 100-129 mg/dL Borderline High: 130-159 mg/dL High: 160-189 mg/dL Very High: > or =190 mg/dL Note: LDL calculation updated to the NIH LDL formula as of 04/18/2024 Non-HDL Cholesterol 105 mg/dL 07/27/2024 3:[address] [facility] Comment: Desirable: <130 mg/dL Above Desirable: 130-159 mg/dL Borderline High: 160-189 mg/dL High: 190-219 mg/dL Very High: > or = 220 mg/dL Blood VENOUS BLOOD SPECIMEN / Unknown Venipuncture / Unknown 07/27/2024 2:28 PM EST 07/27/2024 2:28 PM EST [facility] - 07/27/2024 3:42 PM EST It is important to review the results of your lipid panel with your health care provider. You can compare your lipid results to the ranges below and whether they are in the desirable range. These ranges are only meant to be used for people without known cardiac disease, history of stroke, or peripheral vascular disease (blockages in the leg arteries or diabetes). If you have one of these conditions, your desirable LDL-C (bad cholesterol) will likely be even lower. ?? ACC/AHA Guidelines (most recently Fran et al. [facility] 06/18/22): * For individuals with atherosclerotic cardiovascular disease (ASCVD) or LDL >=190 mg/dL, use a high-intensity statin(40-80 mg atorvastatin or 20-40 mg rosuvastatin with goal >=50% LDL reduction) * For individuals with diabetes, age 40-75 without ASCVD, moderate-intensity statin (goal 30-49% LDL reduction); consider high intensity statin for those with increased risk. * For adults without diabetes or ASCVD, aged 40-75 with LDL 70-189 mg/dL, estimate 10 year ASCVD risk with smartphrase ??.ASCVDRISK ??or [employer] Decisions. If 10 year risk is 7.5%-19.9% (intermediate risk), consider moderate intensity statin based on risk enhancers and patient preference. Consider coronary artery calcium test (CT)if there is concern regarding the benefit of a statin. If ten year risk is >=20%, initiate high-intensity statin. * Evaluate for secondary causes of Triglycerides >500 mg/dL or LDL >190 mg/dL. * Lifestyle modification is a critical component of ASCVD risk reduction. * If not reaching LDL goals on maximally tolerated statin, consider ezetimibe and/or a PCSK9 inhibitor: ?* Target for primary prevention: LDL<100 ?* Target for those with ASCVD or diabetes and 10-year risk >=20%: LDL<70 ?* Target for those with very high risk ASCVD: LDL<55 (Very high risk being the presence of 2 or more of: recent acute coronary syndrome, past ? myocardial infarction, ischemic stroke, symptomatic peripheral artery disease) Gabe Fong MD CHEMISTRY ORDERABLES [facility] [place] [address] * Creatinine (07/27/2024 2:28 PM EST) Creatinine 1.20 0.70 - 1.20 mg/dL 07/27/2024 3:[address] [facility] Est Glomerular Filtration Rate - Female 51 mL/min/1. 73 m?? 07/27/2024 3:[address] [facility] Comment: This patient's estimated GFR [...] urine creatinine clearance. Assignment of CKD stage 1 - 5 for patients with an eGFR near the transition point between stages may be based on clinical assessment of muscle mass and symptoms in addition to eGFR. Link: eGFR Calculator [employer] Blood VENOUS BLOOD SPECIMEN / Unknown Venipuncture / Unknown 07/27/2024 2:28 PM EST 07/27/2024 2:28 PM EST Gabe Fong MD [place] [address] documented in this encounter Visit Diagnoses Diagnosis [...] hands documented in this encounter Care Teams Box Folding Machine Operator Relationship Specialty Start Date End Date Marcio Devlin DO [address] [place] [address] PCP - General Family Medicine 11/11/17 documented as of this encounter
--- OUTSIDE RECORDS SUMMARY | 2024-10-04 16:02 | XMS_ITS | Encounter Summary ---
Author Organization [facility] [place] [address] Care Team Providers Care Diplomatic Officer Name Role Phone Marcio Devlin DO Primary Care Provider [phone] Encounter Details Date Type Department Care Team (Latest Contact Info) Description 07/18/2024 9:00 AM EST - 07/18/2024 11:59 PM [facility] Hospital Encounter Non-[place] [phone] Discharge Disposition: Home Social History Tobacco Use Types Packs/Day Years Used Date Smoking Tobacco: Never Smokeless Tobacco: Never Alcohol Use Standard Drinks/Week Comments Yes 0 (1 standard drink = 0.6 oz pure alcohol) once every couple of months or less [facility] Utilities Answer Date Recorded In the past 12 months has [employer], gas, oil, or water [employer] threatened to shut off services in your [...] by mouth daily. SUMAtriptan (IMITREX) 20 mg/actuation [place], Non-Aerosol 1 spray as needed. 11/03/2017 metFORMIN [...] AM EST Hospital Encounter Non-Invasive [place] [phone] Arrived 11/12/2024 8:00 AM EST Appointment Mammography/[place] [phone] Gabe Fong MD [facility] [place] [address] 11/30/2024 2:30 PM EDT [place] [phone] Gabe Fong MD [facility] [address] 12/07/2024 2:30 PM EDT TH Visit (TeleHealth) [place] [phone] Rosemarie Morrow APRN [facility] [place] [address] documented as of this encounter Procedures Procedure Name Priority Date/Time Associated Diagnosis Comments PRO PM INTERROGATION REMOTE UP TO 90 DAYS Routine 05/25/2024 8:02 AM EDT documented in this encounter Results * Cardiac Device Check - Remote (05/25/2024 8:02 AM EDT) Anatomical Region Laterality Modality Other 05/25/2024 8:02 AM EDT Lucien Noyola MD IMPLANTABLE CARDIAC DEVICE documented in this encounter Visit Diagnoses Not on filedocumented in this encounter Care Teams Diplomatic Officer Relationship Specialty Start Date End Date Marcio Devlin DO [address] [place] [address] PCP - General Family Medicine 11/11/17 documented as of this encounter
--- OUTSIDE RECORDS SUMMARY | 2024-10-04 16:02 | XMS_ITS | Encounter Summary ---
Author Organization [facility] [place] [address] Care Team Providers Care Inspector Material Disposition Name Role Phone Marcio Devlin DO Primary Care Provider [phone] Encounter Details Date Type Department Care Team (Latest Contact Info) Description 09/27/2024 Specialty [place] [phone] Alex Cerrato Benefits Investigation (upadacitinib) for Rheumatology, Prior Authorization (upadacitinib) for Rheumatology Social History Tobacco Use Types Packs/Day Years Used Date Smoking Tobacco: Never Smokeless Tobacco: Never Alcohol Use Standard Drinks/Week Comments Yes 0 (1 standard drink = 0.6 oz pure alcohol) once every couple of months or less [facility] Utilities Answer Date Recorded In the past 12 months has [employer], gas, oil, or water [employer] threatened to shut off services in your [...] as of this encounter Progress Notes * Alex Cerrato - 09/27/2024 11:53 AM EST Images from the original note were not included. [facility], Medication Prior Authorization Patient: Kim Funes : 1960 09/27/2024 11:54 AM PA Submission Reason for Prior Authorization Insurance Change Does [facility] complete PA for this office? Yes Office notified N/A Medication Upadacitinib ICD-10 code M45.2 - Dispense Quantity 90 Dispense Units tablet Day Supply 90 Insurance Phone [phone] Information sent via Online Portal Case/Truong Number EOC: [id number] Submission Notes Rinvoq PA submitted Patient Notified No Notification Method -- Will call to update them on PA result, and if a pharmacy switch is required. For any questions relating to this prior authorization please reach out directly to your section's specialty pharmacist, or the specialty pharmacy team at [facility] Alex Cerrato 09/27/24 11:58 AM D Specialty Pharmacy Benefits Investigation The [facility] has completed a benefits investigation for Kim Funes to review their eligibility to fill at [facility]. 09/27/2024 11:54 AM Benefits Investigation Medication Upadacitinib Prescription Status Insurance Update Dispense Quantity 90 Dispense Units tablet Day Supply 90 Insurance Status Insured Medication Coverage Status Medication requires PA [facility] [id number] PCN [employer] [id number] Can patient fill with [facility]? No Anticipated Pharmacy [facility] Is this a conversion opportunity? No Expected Copay Unknown, Result of Benefits Investigation: Specialty will pursue PA with patient's insurance to determine eligibility Expected Copay Unknown, For any questions relating to this Benefits Investigation please reach out directly to your section's specialty pharmacist, or the specialty pharmacy team at [facility] Thank you, Alex Cerrato 09/27/24 11:58 AM * Alex Cerrato - 09/27/2024 11:53 AM EST [facility], Medication Prior Authorization Patient: Kim Funes : 1960 09/28/2024 1:34 PM PA Approval Approval Start Date 09/28/2024 Approval End Date 09/27/2025 Case/Truong Number [id number] Can patient fill with [facility]? No Anticipated Pharmacy [facility] Is this a conversion opportunity? No Expected Copay $0 Referral for copay assistance will be completed No Approval Notes Alan YAN approved. Called insurance to confirm copay Patient Notified Yes Notification Method Spoke to patient For any questions relating to this prior authorization please reach out directly to your section's specialty pharmacist, or the specialty pharmacy team at [facility] Alex Cerrato 09/28/24 1:37 PM documented in this encounter Plan of Treatment Upcoming Encounters Date Type Department Care Team (Late st Contact Info) Description 10/16/2024 10:00 AM EST Hospital Encounter Non-Invasive [place] [address] Arrived 11/12/2024 8:00 AM EST Appointment Mammography/DXA at [address] Gabe Fong MD [facility] [place] [address] 11/30/2024 2:30 PM EDT Office Visit Rheumatology at [place] [phone] Gabe Fong MD [facility] [place] [address] 12/07/2024 2:30 PM EDT TH Visit (TeleHealth) Gastroenterology at [place] [phone] Rosemarie Morrow, SKIP [facility] [place] [address] documented as of this encounter Visit Diagnoses Not on filedocumented in this encounter Care Teams Inspector Material Disposition Relationship Specialty Start Date End Date Marcio Devlin DO [address] [place] [id number] PCP - General Family Medicine 11/11/17 documented as of this encounter
--- OUTSIDE RECORDS SUMMARY | 2024-10-04 16:02 | XMS_ITS | Encounter Summary ---
Author Organization [facility] Address [facility] [place] [address] Care Team Providers Care Crm Marketing Analyst Name Role Phone Marcio Devlin DO Primary Care Provider [phone] Encounter Details Date Type Department Care Team (Late st Contact Info) Description 07/02/2024 4:00 PM EDT Office Visit Cardiology at [address] [address] Mars Green PA [facility] [place] [address] Complete heart block; Pacemaker Social History Tobacco Use Types Packs/Day Years Used Date Smoking Tobacco: Never Smokeless Tobacco: Never Alcohol Use Standard Drinks/Week Comments Yes 0 (1 standard drink = 0.6 oz pure alcohol) once every couple of months or less [facility] Utilities Answer Date Recorded In the past 12 months has [employer], gas, oil, or water company threatened [...] in a custodial (including now)? No 10/21/2023 DH IPV Inpatient [...] Sign Reading Time Taken Comments Blood Pressure 138/86 07/02/2024 3:55 PM EDT Pulse 86 07/02/2024 3:55 PM EDT Temperature - - Respiratory Rate - - Oxygen Saturation 99% 07/02/2024 3:55 PM EDT Inhaled Oxygen Concentration - - Weight 85.7 kg (189 lb) 07/02/2024 3:55 PM EDT Height 166.4 cm (5' 5.5) 07/02/2024 3:55 PM EDT Body Mass Index 30.97 07/02/2024 3:55 PM EDT documented in this encounter Progress Notes * Mars Green PA - 07/02/2024 4:00 PM EDT Cardiac Electrophysiology Clinic Visit Subjective: Patient ID: Kim Funes is a 64 y.o. female. CC: Follow up of CHB, s/p pacemaker HPI: 64 y.o. female with past medical history of ulcerative colitis, ankylosing spondylitis, symptomatic complete heart block, s/p dual-chamber permanent pacemaker implantation 10/21/2023, who presented today in follow-up. Medical History: - Pacemaker implanted in October 2023 (7 months ago) Current Condition/Complaint: - Sensation of strong heartbeat lasting a couple seconds, felt while sitting at table at work - No other associated symptoms including dyspnea, chest pain, lightheadedness or dizziness. Patient Active Problem List Diagnosis Pacemaker Overview Note: Video Machines Mechanic Model # Serial # Generator [employer] [id number] Atrial Lead [employer] [id number] Ventricular Lead [employer] [id number] 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 Complete heart block Overview Note: 10/20 p/w fatigue, s/p A/V sequential PPM 05/08 no evidence of infiltrative disease on cardiac mri 07/08 preserved biventricular systolic function Prediabetes Presence of left artificial hip joint [...] (Dr. Shady Luz at [facility]) for surveillance for dysplasia. Areas of skip [...] 2020 - severe involvement of L colon, [id number] involvement of transverse and R colon. Worse compared to last exam. SSA at hepatic flexure Adalimumab level (garcía) was 12.7 Switched to Stelara ( 03/21/21, first infusion dose) d/t Lost of response to Humira. Stopped Uceris and sulfasalazine in January 2021. [place] 09/2022 - tubular featureless L colon with slightly diminished vascular pattern. Histology withmild colitis in sigmoid and inactive in descending. SSA in hep flex. [place] 09/2023 - In remission - altered architecture, as above. No dysplasia on histology. 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 clindamycin (CLEOCIN T) 1 % Lotion Apply to affected areas on abdomen twice daily for ten days. 60 mL 0 Asmanex HFA 200 mcg/actuation HFA Aerosol Inhaler [...] by mouth daily. SUMAtriptan (IMITREX) 20 mg/actuation Ragan, Non-Aerosol 1 spray as needed. metFORMIN (GLUCOPHAGE) [...] 1,000 mg tablet 1000MG, PO, Once daily amLODIPine (Norvasc) 10 mg tablet Take 1 tablet by mouth daily. Objective: Vitals: Vitals: 07/02/24 1555 BP: 138/86 Pulse: 86 SpO2: 99% Weight: 85.7 kg (189 lb) Height: 166.4 cm (5' 5.5) Physical Exam: General- No acute distress, sitting comfortably in exam room chair HEENT- Head atraumatic, normocephalic Skin- Pocket incision is well healed. No evidence of erosion or need of revision Neck- No JVD noted Cardiovascular- S1/S2 regular rate and rhythm. No murmur, rub or gallop Lungs- Clear to auscultation bilaterally Device Programming Data Video Machines Mechanic Model # Serial # Generator [employer] [id number] Atrial Lead [employer] [id number] Ventricular Lead [employer] [id number] Diagnostics Pacing Mode: DDD 60/130/130 Presenting EGMs: -BUSINESS RELATIONS MANAGER Underlying Rhythm: CHB with escape rhythm 30's Atrial Episodes: 2 episodes of AT/AF lasting seconds Ventricular Episodes: None Atrial Pacin% Ventricular Pacin% Thoracic Impedance: ---- HR Histogram Distribution: Appropriate Battery and Leads Voltage: N/A Status: 7.5 yrs Magnet Rate: 85bpm Charge Time: --- Impedances (ohms) Sensing (mV) Thresholds HV RA RV LV RA RV LV RA RV LV ---- [phone] ---- 2.1 7.1 @ 35 bpm ---- 0.70V @ 0.40ms 0.40V @ 0.40ms ---- Comments: - Pocket incision is well healed without signs or symptoms of infection - Device is functioning appropriately - Changes: none Assessment and Plan: Assessment: - Status-post dual-chamber pacemaker 10/21/2023 for complete heart block Normal pacemaker function with Intermittent sensation likely represents pacemaker automatic capturemanagement, patient to track timing of episodes - Paroxysmal atrial tachycardia - HTN, elevated today in clinic but reported normal readings at home Plan: - Patient to keep record of date and time of intermittent sensation (may be pacemaker automatic threshold checks or runs of PAT). If frequency or symptoms worsen, patient to contact us sooner than next f/u. - Remote pacemaker monitoring to be arranged as scheduled - Continue to monitor BP readings at home. documented in this encounter Plan of Treatment Upcoming Encounters Date Type Department Care Team (Late st Contact Info) Description 10/16/2024 10:00 AM EST Hospital Encounter Non-Invasive Cardiology Lab [place] [phone] Arrived 11/12/2024 8:00 AM EST Appointment Mammography/[place] [address] Gabe Fong MD [facility] [place] [address] 11/30/2024 2:30 PM EDT Office [place] [address] Gabe Fong MD [facility] [place] [address] 12/07/2024 2:30 PM EDT TH Visit (TeleHealth) Gastroenterology at [place] [address] Rosemarie Morrow, SKIP [facility] [place] [address] documented as of this encounter Visit Diagnoses Diagnosis Complete heart block Atrioventricular block, complete Pacemaker Cardiac pacemaker in situ documented in this encounter Care Teams Crm Marketing Analyst Relationship Specialty Start Date End Date Marcio Devlin DO [address] [place] [address] PCP - General Family Medicine 11/11/17 documented as of this encounter
--- OUTSIDE RECORDS SUMMARY | 2024-10-04 16:02 | XMS_ITS | Encounter Summary ---
Author Organization [facility] [place] [address] Care Team Providers Care Reeling Machine Operator Name Role Phone Marcio Devlin DO Primary Care Provider [phone] Reason for Referral * Diagnostic Test (Routine) - New Request Specialty Diagnoses / Procedures Referred By Missy escalera Referred To Contact Radiology Diagnoses IPMN (intraductal papillary mucinous neoplasm) Procedures MRI Abdomen wwo Contrast (Generic) Clau Cruz MD [facility] [place] [address] [place] [address] Referral ID Status Reason Start Date Expiration Date Visits Requested Visits Authorized [id number] New Request Specialty Service Requested 4 03/01/2026 1 1 Encounter Details Date Type Department Care Team (Latest Contact Info) Description 08/31/2024 2:30 PM EST TH Visit (TeleHealth) [place] [address] Clau Cruz MD [facility] [address] IPMN (intraductal papillary mucinous neoplasm) Social History Tobacco Use Types Packs/Day Years Used Date Smoking Tobacco: Never Smokeless Tobacco: Never Alcohol Use Standard Drinks/Week Comments Yes 0 (1 standard drink = 0.6 oz pure alcohol) once every couple of months or less [facility] [...] Progress Notes * Clau Cruz MD - 08/31/2024 2:30 PM EST GASTROENTEROLOGY TELEMEDICINE PROGRAM - ESTABLISHED PATIENT VISIT Chief Complaint: Kim Funes is a 64 y.o. patient of Marcio Devlin, DO here for follow-up of MASH. 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 She was previously seen by Dr. Chan, with the last visit in 2010. Mild increase of alk phos (highest report level was 144 in 02/2006). Dr. Chan started on ursodiol [id number]. No prior liver imaging. No evidence of PSC on liver biopsy. Fibroscan 06/2020: 6.6 kPa (F0-1) MRI elastography 08/17/2024: 1.5-1.8 kPa, normal #Pancreatic IPMN - MRI 08/20/2024: Scattered pancreatic cystic lesions, predominantly within the pancreatic head, with the largest measuring 11 mm. All parties consented to the use of LEXIE to document this visit. Subjective History of Present Illness The patient is here for a virtual visit to discuss her MRI results. She is experiencing significant back pain that radiates to her stomach, which began last or Friday. The pain intensifies upon touching the skin, but there is no visible rash in that area. She has a history of kidney stones and wonders if this could be related. Objective Physical exam: No Physical Examination performed during this telemedicine visit Results Imaging MR elastography showed no fibrosis or scarring in the liver from the mesh. MRI of the liver showed smooth liver, no signs of cirrhosis, and no fat within the liver. Small cysts were found in the pancreas resembling side branch ipmns. Assessment & Plan 1. Pancreatic cysts. The MRI revealed small cysts in the pancreas, identified as side branch IPMNs, which are benign. These cysts will be monitored with an annual MRI for 5 years to ensure they do not show any worrisome changes. If they remain stable over this period, no further follow-up will be necessary. If the cysts show signs of becoming sinister, intervention will be discussed due to the high risks associated with pancreatic surgery and ablation. 2. Metabolic-associated steatohepatitis. The MR elastography results were normal, indicating no fibrosis or liver scarring from MASH. The MRI showed a smooth liver with no signs of cirrhosis or fat. The metabolic-associated steatohepatitis is well controlled. Annual liver enzyme monitoring with the primary care physician is recommended. 3. Back pain. The pain experienced from the back around to the stomach, which hurts to touch the skin, appears amos nerve-related. Follow-up with the primary care physician is recommended for further evaluation. The patient was located in [place] at the time of their telemedicine visit. Clau Cruz MD [facility] [place] [phone] documented in this encounter Plan of Treatment Upcoming Encounters Date Type Department Care Team (Late st Contact Info) Description 10/16/2024 10:00 AM EST Hospital Encounter Non-[place] [address] Arrived 11/12/2024 8:00 AM EST Appointment Mammography/DXA at [place] [phone] Gabe Fong MD [facility] [address] [place] [address] 11/30/2024 2:30 PM EDT Office [place] [address] Gabe Fong MD [facility] [address] [address] 12/07/2024 2:30 PM EDT TH Visit (TeleHealth) [place] [phone] Rosemarie Morrow APRN [facility] [place] [address] Scheduled Orders Name Type Priority Associated Diagnoses Orde r Schedule MRI Abdomen wwo Contrast (Generic) Imaging Routine IPMN (intraductal papillary mucinous neoplasm) Expected: 08/31/2025 (Approximate), Expires: 03/02/2026 documented as of this encounter Visit Diagnoses Diagnosis IPMN (intraductal papillary mucinous neoplasm) Neoplasm of unspecified nature of digestive system documented in this encounter Care Teams Reeling Machine Operator Relationship Specialty Start Date End Date Marcio Devlin DO [address] [place] [address] PCP - General Family Medicine 11/11/17 documented as of this encounter
--- OUTSIDE RECORDS SUMMARY | 2024-10-04 16:02 | XMS_ITS | Encounter Summary ---
Author Organization [facility] [place] [address] Care Team Providers Care Substitute Crossing Guard Name Role Phone Marcio Devlin DO Primary Care Provider [phone] Reason for Visit * Diagnostic Test (Routine) - Denied Specialty Diagnoses / Procedures Referred By Dbac jw Referred To Contact Radiology Diagnoses Abnormal liver function test Metabolic dysfunction-associated steatohepatitis (MASH) Ulcerative pancolitis without complication Procedures MRI Elastography wo Contrast Clau Cruz MD [facility] [place] [address] [place] [address] Referral ID Status Reason Start Date Expiration Date V isits Requested Visits Authorized [id number] Denied Specialty Service Requested 07/09/2024 01/07/2026 1 0 Encounter Details Date Type Department Care Team (Latest Contact Info) Description 08/17/2024 1:36 PM EST - 08/17/2024 11:59 PM [facility] Hospital [place] [address] Clau Cruz MD [facility] [place] [address] Discharge Disposition: Home Social History [...] a skilled nursing (including now)? No 10/21/2023 DH IPV Inpatient [...] Sign Reading Time Taken Comments Blood Pressure 138/68 08/17/2024 4:50 PM EST Pulse - - Temperature - - Respiratory Rate 20 08/17/2024 4:50 PM EST Oxygen Saturation 97% 08/17/2024 4:50 PM EST Inhaled Oxygen Concentration - - [...] by mouth daily. SUMAtriptan (IMITREX) 20 mg/actuation [place], Non-Aerosol 1 spray as needed. 11/03/2017 metFORMIN [...] tablet TAKE 1 TABLET DAILY 90 tablet 08/18/2024 09/29/2024 Rinvoq 15 mg ER 24 hr tablet TAKE 1 TABLET DAILY 90 tablet 05/26/2024 08/18/2024 documented as of this encounter Plan of Treatment Upcoming Encounters Date Type Department Care Team (Late st Contact Info) Description 10/16/2024 10:00 AM EST Hospital Encounter Non-Invasive [place] [address] Arrived 11/12/2024 8:00 AM EST Appointment Mammography/DXA at [place] [phone] Gabe Fong MD [facility] [place] [address] 11/30/2024 2:30 PM EDT Office Visit [place] [address] Gabe Fong MD [facility] [place] [address] 12/07/2024 2:30 PM EDT TH Visit (TeleHealth) [place] [address] Rosemarie Morrow APRN [facility] [place] [address] documented as of this encounter Procedures Procedure Name Priority Date/Time Associated Diagnosis Comments MRI ELASTOGRAPHY Routine 08/17/2024 5:05 PM EST Abnormal liver function test Metabolic dysfunction-associated steatohepatitis (MASH) Ulcerative pancolitis without complication documented in this encounter Results * MRI Elastography wo Contrast (08/17/2024 5:05 PM EST) WORKSTATION ID [id number] [facility] Anatomical Region Laterality Modality Abdomen Right Magnetic Resonan ce Impressions 08/19/2024 10:42 AM EST 1. ??Liver stiffness measurement range: 1.5-1.8 kPa. Normal. 2. ??Hepatomegaly and steatosis. MR elastography estimates of hepatic stiffness correlate with fibrosis stages as: Less than 2.5 kPa: Normal 2.5-2.9 kPa: Normal or inflammation 2.9-3.5 kPa: Stage I to II fibrosis 3.5-4.0 kPa: Stage II to III fibrosis 4.0-5.0 kPa: Stage IV fibrosis or cirrhosis Results should be interpreted along with clinical and laboratory findings for other possible causes of increased liver stiffness. I have personally reviewed the image(s) and the resident's interpretation and agree with the findings, Glenn Woodruff MD at 08/19/2024 10:42 AM Thank you for letting us participate in the care of this patient. ??If you are a health care provider and have any questions regarding this report, please contact the number below. ??For patients who have questions please contact the health college and career counselor that requested your imaging first. ? Electronically signed by: Glenn Woodruff MD, [facility] ([phone]), at 08/19/2024 10:42 AM Narrative 08/19/2024 10:42 AM EST EXAMINATION: MRI ELASTOGRAPHY CLINICAL HISTORY: pt with kamlesh OVALLES, F2 on biopsy in 2009, F0-1 on Fribroscan in 2019, increase in liver enzymes, hx of UC, ?PSC R79.89, Other specified abnormal findings of blood chemistry - K75.81, Nonalcoholic steatohepatitis (MÉNDEZ) - K51.00, Ulcerative (chronic) pancolitis without complications TECHNIQUE: MR elastography of the liver. Coronal T2 and axial in/out of phase images of the abdomen are included. No intravenous contrast. COMPARISON: None FINDINGS: Liver: Enlarged measuring approximately 20 cm in length at the right midclavicular line. Mild signal loss on opposed phase images, compatible with steatosis. Stiffness measurement range: 1.5- 1.8 kPa Lower chest: Cardiac pacemaker in place. Bile ducts: Nondilated. Gallbladder: No gallstones. Normal caliber wall. Pancreas: Normal signal intensity without ductal dilatation. Spleen: Normal size and signal intensity. Adrenals: Normal. Kidneys: No hydronephrosis. Multiple T2 hyperintense masses, likely cysts. The largest is in the right upper pole and contains one thin septation. One left renal subcentimeter T1 hyperintense, T2 hypointense lesion is likely a hemorrhagic cyst. Vasculature: No abdominal aortic aneurysm. Lymph nodes: No enlarged lymph nodes. Bowel: Nondilated, no inflammatory changes. Peritoneum and mesentery: No ascites or loculated fluid collection. Marrow Signal: No suspicious findings. Procedure Note Glenn Woodruff MD - 08/19/2024 EXAMINATION: MRI ELASTOGRAPHY CLINICAL HISTORY: pt with kamlesh OVALLES, F2 on biopsy in 2009, F0-1 onFribroscan in 2020, increase in liver enzymes, hx of UC, ?PSC R79.89, Other specified abnormal findings of blood chemistry - K75.81, Nonalcoholic steatohepatitis (MÉNDEZ) - K51.00, Ulcerative (chronic)pancolitis without complications TECHNIQUE: MR elastography of the liver. Coronal T2 and axial in/out ofphase images of the abdomen are included. No intravenous contrast. COMPARISON: None FINDINGS: Liver: Enlarged measuring approximately 20 cm in length at the right midclavicular line. Mild signal loss on opposed phase images, compatiblewith steatosis. Stiffness measurement range: 1.5- 1.8 kPa Lower chest: Cardiac pacemaker in place. Bile ducts: Nondilated. Gallbladder: No gallstones. Normal caliber wall. Pancreas: Normal signal intensity without ductal dilatation. Spleen: Normal size and signal intensity. Adrenals: Normal. Kidneys: No hydronephrosis. Multiple T2 hyperintense masses, likely cysts.The largest is in the right upper pole and contains one thin septation. Oneleft renal subcentimeter T1 hyperintense, T2 hypointense lesion is likely a hemorrhagic cyst. Vasculature: No abdominal aortic aneurysm. Lymph nodes: No enlarged lymph nodes. Bowel: Nondilated, no inflammatory changes. Peritoneum and mesentery: No ascites or loculated fluid collection. Marrow Signal: No suspicious findings. IMPRESSION 1. Liver stiffness measurement range: 1.5-1.8 kPa. Normal. 2. Hepatomegaly and steatosis. MR elastography estimates of hepatic stiffness correlate with fibrosisstages as: Less than 2.5 kPa: Normal 2.5-2.9 kPa: Normal or inflammation 2.9-3.5 kPa: Stage I to II fibrosis 3.5-4.0 kPa: Stage II to III fibrosis 4.0-5.0 kPa: Stage IV fibrosis or cirrhosis Results should be interpreted along with clinical and laboratory findingsfor other possible causes of increased liver stiffness. I have personally reviewed the image(s) and the resident's interpretationand agree with the findings, Glenn Woodruff MD at 08/19/2024 10:42 AM Thank you for letting us participate in the care of this patient. If youare a health care provider and have any questions regarding this report,please contact the number below. For patients who have questions please contactthe health college and career counselor that requested your imaging first. Electronically signed by: Glenn Woodruff MD, [facility]([phone]), at 08/19/2024 10:42 AM Clau Cruz MD IMG MRI ORDERABLES documented in this encounter Visit Diagnoses Not on filedocumented in this encounter Care Teams Substitute Crossing Guard Relationship Specialty Start Date End Date Marcio Devlin DO [address] [facility] [place] [address] PCP - General Family Medicine 11/11/17 documented as of this encounter
--- OUTSIDE RECORDS SUMMARY | 2024-10-04 16:02 | XMS_ITS | Encounter Summary ---
Author Organization [facility] [place] [address] Care Team Providers Care Home And Family Living Professor Name Role Phone Marcio Devlin DO Primary Care Provider [phone] Reason for Visit * Diagnostic Test (Routine) - Closed Specialty Diagnoses / Procedures Referred By Missy escalera Referred To Contact Radiology Diagnoses Abnormal liver function test Metabolic dysfunction-associated steatohepatitis (MASH) Ulcerative pancolitis without complication Procedures MRI Cholangiopancreatography wwo Contrast Clau Cruz MD [facility] [place] [address] [facility] [place] [address] Referral ID Status Reason Start Date Expiration Date V isits Requested Visits Authorized [id number] Closed Specialty Service Requested 07/09/2024 01/07/2026 1 1 Encounter Details Date Type Department Care Team (Latest Contact Info) Description 08/20/2024 7:57 AM EST - 08/20/2024 11:59 PM EST Hospital [place] [address] Clau Cruz MD [facility] [place] [address] Discharge Disposition: Home Social History [...] Sign Reading Time Taken Comments Blood Pressure 151/74 08/20/2024 10:20 AM EST Pulse 85 08/20/2024 10:20 AM EST Temperature - - Respiratory Rate 20 08/20/2024 9:50 AM EST Oxygen Saturation 98% 08/20/2024 10:20 AM EST Inhaled Oxygen Concentration - - [...] by mouth daily. SUMAtriptan (IMITREX) 20 mg/actuation [place], Non-Aerosol 1 spray as needed. 11/03/2017 metFORMIN [...] 1 TABLET DAILY 90 tablet 08/18/2024 09/29/2024 documented as of this encounter Plan of Treatment Upcoming Encounters Date Type Department Care Team (Late st Contact Info) Description 10/16/2024 10:00 AM EST Hospital Encounter Non-Invasive [place] [address] Arrived 11/12/2024 8:00 AM EST Appointment Mammography/DXA at [place] [phone] Gabe Fong MD [facility] [place] [place] [address] 11/30/2024 2:30 PM EDT Office [place] [address] Gabe Fong MD [facility] [place] [address] 12/07/2024 2:30 PM EDT TH Visit (TeleHealth) [place] [address] Rosemarie Morrow APRN [facility] [place] [address] documented as of this encounter Procedures Procedure Name Priority Date/Time Associated Diagnosis Comments MRI CHOLANGIOPANCREATOGRAPHY WWO CONTRAST Routine 08/20/2024 10:43 AM EST Abnormal liver function test Metabolic dysfunction-associa barrett steatohepatitis (MASH) Ulcerative pancolitis without complication documented in this encounter Results * MRI Cholangiopancreatography wwo Contrast (08/20/2024 10:43 AM EST) WORKSTATION ID [id number] RAD Anatomical Region Laterality Modality Magnetic Resonan ce Impressions 08/21/2024 7:35 AM EST 1. ??Normal MRCP appearance to the biliary tree. ??No biliary stricture, choledocholithiasis, or biliary dilatation. 2. ??Normal MR appearance to the liver. ??No focal hepatic lesions. 3. ??Scattered pancreatic cystic lesions, predominantly within the pancreatic head, with the largest measuring 11 mm. 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 ??Per ACR white paper guidelines, recommend annual MRI (alternatively CT) surveillance for 5 years. Reference: Management of Incidental Pancreatic Cysts: A White Paper of the ACR Incidental Findings Committee by Herrera Barbosa et al. in Journal of the [place] [employer], Volume 14, Issue 7, Pages 911 to 929. LI-RADS Categories: LR-TIV = Tumor in vein LR-5 = Definitely hepatocellular carcinoma (concordant with OPTN 5) LR-4 = Probably hepatocellular carcinoma LR-3 = Intermediate probability for hepatocellular carcinoma LR-2 = Probably benign LR-1 = Definitely benign LR-TR Viable = Treated, probably or definitely viable LR-TR Equivocal = Treated, equivocally viable LR-TR Nonviable = Treated, probably or definitely not viable LR-TR Nonevaluable = Treated, Response not evaluable (due to image omission or degradation) LR-M = Probably or definitely malignant but not HCC specific LR-NC = Not categorizable (due to image omission or degradation) NOTE: LI-RADS categories should be interpreted in the context of other available data, such as biomarkers and the patient's prior probability of developing or having hepatocellular carcinoma. The LI-RADS / OPTN classification of liver lesions has been adopted to standardize CT and MRI scan reporting in patients at risk for hepatocellular carcinoma. The imaging criteria for definite hepatocellular carcinoma are concordant for the LI-RADS and OPTN systems. LI-RADS criteria and documentation are available online at https://www.acr.org/Clinical-Resources/Dcvjndonv-ycl-Wisr-Systems/LI-RADS. This report utilizes LI-RADS version 2018. Thank you for letting us participate in the care of this patient. ??If you are a health care provider and have any questions regarding this report, please contact the number below. ??For patients who have questions please contact the health primary care nurse that requested your imaging first. ? Electronically signed by: Glenn Melton DO, [facility] ([phone]), at 08/21/2024 7:35 AM Narrative 08/21/2024 7:35 AM EST EXAMINATION: MRI CHOLANGIOPANCREATOGRAPHY WWO CONTRAST ? 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 Noncontrast MRCP was performed. 3D MIPS were created. COMPARISON: There is no similar prior examination provided for comparison. FINDINGS: Build Engineer Images: Noncontributory. Lower chest: There is susceptibility artifact from a pacemaker. ??Partially visualized are pacemaker leads within the right chambers of the heart. Liver: Prior hepatic interventions: None. Liver Morphology: The liver margin is smooth and normal in size. ??There is normal signal intensity. Focal hepatic lesions: None. Portal Vein: Patent. Varices: None. Ascites: None. Spleen: Normal. Bile ducts: Intrahepatic bile ducts are well visualized and normal in caliber. The common bile duct is normal caliber. No intraluminal filling defects. Gallbladder: Normal. Pancreas: There are a few T2 hyperintense, T1 hypointense, nonenhancing cystic lesions within the pancreas. ??The larger lesions do communicate with the main pancreatic duct; no communication with the main pancreatic duct is identified with the more punctate lesions. ??The largest of which is in the pancreatic head measuring 11 mm (series 4001, image 24). ??The pancreas enhances uniformly. There is no pancreatic ductal dilatation. ??There is no focal nodularity. Pancreatic duct: Normal caliber and configuration. Adrenals: Normal. Kidneys: There are bilateral T2 hyperintense, T1 hypointense, nonenhancing renal cysts, largest of which is in the parapelvic right kidney measuring 31 mm. Visualized aspects of the ureters image normally. Vasculature: The aorta is normal in course and caliber. ??The origin the mesenteric and renal arteries are within normal limits. ??The inferior vena cava is normal in course and caliber. ??The superior mesenteric, splenic, and portal veins are patent. ??The hepatic veins are patent. ??The renal veins are patent. Lymph nodes: There are no pathologically enlarged lymph nodes. Bowel: Limited evaluation of the distal esophagus is unremarkable. ??The stomach is partially distended with fluid and air. ??The duodenum is normal in course and caliber. ??The remainder of the visualized small bowel is within normal limits. Visualized aspects of the large bowel are within normal limits. Peritoneum and mesentery: No ascites or loculated fluid collection. Marrow Signal: Normal. Procedure Note Glenn Melton, DO - 08/21/2024 EXAMINATION: MRI CHOLANGIOPANCREATOGRAPHY WWO CONTRAST CLINICAL HISTORY: pt with kamlesh OVALLES, F2 on biopsy in 2009, F0-1 onFribroscan in 2019, increase in liver enzymes, hx of UC, ?PSC R79.89, Other specified abnormal findings of blood chemistry - K75.81, Nonalcoholic steatohepatitis (MÉNDEZ) - K51.00, Ulcerative (chronic)pancolitis without complications TECHNIQUE: MRI of the abdomen prior to and following the intravenous administration of 16mL Dotarem. Noncontrast MRCP was performed. 3D MIPSwere created. COMPARISON: There is no similar prior examination provided forcomparison. FINDINGS: Build Engineer Images: Noncontributory. Lower chest: There is susceptibility artifact from a pacemaker.Partially visualized are pacemaker leads within the right chambers of the heart. Liver: Prior hepatic interventions: None. Liver Morphology: The liver margin is smooth and normal in size. Thereis normal signal intensity. Focal hepatic lesions: None. Portal Vein: Patent. Varices: None. Ascites: None. Spleen: Normal. Bile ducts: Intrahepatic bile ducts are well visualized and normal incaliber. The common bile duct is normal caliber. No intraluminal filling defects. Gallbladder: Normal. Pancreas: There are a few T2 hyperintense, T1 hypointense, nonenhancingcystic lesions within the pancreas. The larger lesions do communicate with themain pancreatic duct; no communication with the main pancreatic duct isidentified with the more punctate lesions. The largest of which is in the pancreatichead measuring 11 mm (series 4001, image 24). The pancreas enhances uniformly. There is no pancreatic ductal dilatation. There is no focal nodularity. Pancreatic duct: Normal caliber and configuration. Adrenals: Normal. Kidneys: There are bilateral T2 hyperintense, T1 hypointense, nonenhancingrenal cysts, largest of which is in the parapelvic right kidney measuring 31 mm. Visualized aspects of the ureters image normally. Vasculature: The aorta is normal in course and caliber. The origin the mesenteric and renal arteries are within normal limits. The inferior venacava is normal in course and caliber. The superior mesenteric, splenic, andportal veins are patent. The hepatic veins are patent. The renal veins arepatent. Lymph nodes: There are no pathologically enlarged lymph nodes. Bowel: Limited evaluation of the distal esophagus is unremarkable. Thestomach is partially distended with fluid and air. The duodenum is normal incourse and caliber. The remainder of the visualized small bowel is within normallimits. Visualized aspects of the large bowel are within normal limits. Peritoneum and mesentery: No ascites or loculated fluid collection. Marrow Signal: Normal. IMPRESSION 1. Normal MRCP appearance to the biliary tree. No biliary stricture, choledocholithiasis, or biliary dilatation. 2. Normal MR appearance to the liver. No focal hepatic lesions. 3. Scattered pancreatic cystic lesions, predominantly within thepancreatic head, with the largest measuring 11 mm. These are most consistent withBranch Duct - Intraductal Papillary Mucinous Neoplasms (IPMNs). Per ACR whitepaper guidelines, recommend annual MRI (alternatively CT) surveillance for 5years. Reference: Management of Incidental Pancreatic Cysts: A White Paper ofthe ACR Incidental Findings Committee by kendall Mcgraw al. in Journal of theAmerican College of Radiology, Volume 14, Issue 7, Pages 911 to 000. LI-RADS Categories: LR-TIV = Tumor in vein LR-5 = Definitely hepatocellular carcinoma (concordant with OPTN 5) LR-4 = Probably hepatocellular carcinoma LR-3 = Intermediate probability for hepatocellular carcinoma LR-2 = Probably benign LR-1 = Definitely benign LR-TR Viable = Treated, probably or definitely viable LR-TR Equivocal = Treated, equivocally viable LR-TR Nonviable = Treated, probably or definitely not viable LR-TR Nonevaluable = Treated, Response not evaluable (due to imageomission or degradation) LR-M = Probably or definitely malignant but not HCC specific LR-NC = Not categorizable (due to image omission or degradation) NOTE: LI-RADS categories should be interpreted in the context of otheravailable data, such as biomarkers and the patient's prior probability of developingor having hepatocellular carcinoma. The LI-RADS / OPTN classification ofliver lesions has been adopted to standardize CT and MRI scan reporting inpatients at risk for hepatocellular carcinoma. The imaging criteria for definite hepatocellular carcinoma are concordant for the LI-RADS and OPTNsystems. LI-RADS criteria and documentation are available online at https://www.acr.org/Clinical-Resources/Mezckkott-blu-Jypl-Systems/LI-RADS.This report utilizes LI-RADS version 2018. Thank you for letting us participate in the care of this patient. If youare a health care provider and have any questions regarding this report,please contact the number below. For patients who have questions please contactthe health primary care nurse that requested your imaging first. Electronically signed by: Glenn Melton DO, [facility]([phone]), at 08/21/2024 7:35 AM Clau Cruz MD IMG MRI ORDERABLES documented in this encounter Visit Diagnoses Not on filedocumented in this encounter Care Teams Home And Family Living Professor Relationship Specialty Start Date End Date Marcio Devlin DO [address] [place] [address] PCP - General Family Medicine 11/11/17 documented as of this encounter
--- OUTSIDE RECORDS SUMMARY | 2024-10-04 16:02 | XMS_ITS | Encounter Summary ---
Author Organization Formerly [facility] [place] [address] Care Team Providers Care Loan Collector Name Role Phone Marcio Devlin DO Primary Care Provider [phone] Encounter Details Date Type Department Care Team (Latest Contact Info) Description 08/10/2024 Travel Social History Tobacco Use Types Packs/Day Years Used Date Smoking Tobacco: Never Smokeless Tobacco: Never Alcohol Use Standard Drinks/Week Comments Yes 0 (1 standard drink = 0.6 oz pure alcohol) once every couple of months or less [facility] Utilities Answer Date Recorded In [...] in a alf (including now)? No 10/21/2023 IPV Inpatient Questions [...] AM EST Hospital Encounter Non-Invasive [place] [phone] Arrived 11/12/2024 8:00 AM EST Appointment Mammography/[place] [address] Gabe Fong MD [facility] [address] [place] [address] 11/30/2024 2:30 PM EDT Office [place] [address] Gabe Fong MD [facility] [address] [place] [address] 12/07/2024 2:30 PM EDT TH Visit (TeleHealth) [place] [address] Rosemarie Morrow, SKIP [facility] [place] [address] documented as of this encounter Visit Diagnoses Not on filedocumented in this encounter Care Teams Loan Collector Relationship Specialty Start Date End Date Marcio Devlin DO [address] [place] [address] PCP - General Family Medicine 11/11/17 documented as of this encounter
--- OUTSIDE RECORDS SUMMARY | 2024-10-04 16:02 | XMS_ITS | Encounter Summary ---
Author Organization [facility] [place] [address] Care Team Providers Care Service Desk Specialist Name Role Phone Marcio Devlin DO Primary Care Provider [phone] Encounter Details Date Type Department Care Team (Latest Contact Info) Description 07/09/2024 Travel Social History Tobacco Use Types Packs/Day Years Used Date Smoking Tobacco: Never Smokeless Tobacco: Never Alcohol Use Standard Drinks/Week Comments Yes 0 (1 standard drink = 0.6 oz pure alcohol) once every couple of months or less [facility] Utilities Answer Date Recorded In the [...] AM EST Hospital Encounter [place] [phone] Arrived 11/12/2024 8:00 AM EST Appointment Mammography/[place] [address] Gabe Fong MD [facility] [address] [place] [address] 11/30/2024 2:30 PM EDT [place] [address] Gabe Fong MD [facility] [address] [place] [address] 12/07/2024 2:30 PM EDT TH Visit (TeleHealth) [place] [address] Rosemarie Morrow, SKIP [facility] [place] [address] documented as of this encounter Visit Diagnoses Not on filedocumented in this encounter Care Teams Service Desk Specialist Relationship Specialty Start Date End Date Marcio Devlin DO [address] [place] [address] PCP - General Family Medicine 11/11/17 documented as of this encounter
--- OUTSIDE RECORDS SUMMARY | 2024-10-04 16:02 | XMS_ITS | Encounter Summary ---
Author Organization [facility] [place] [address] Care Team Providers Care Supervising Producer Name Role Phone Marcio Devlin DO Primary Care Provider [phone] Reason for Visit * Reason Comments Medication Refill Encounter Details Date Type Department Care Team (Late st Contact Info) Description 08/16/2024 [place] [address] Gabe Fong MD [facility] [address] [place] [address] Social History Tobacco Use Types Packs/Day Years Used Date Smoking Tobacco: Never Smokeless Tobacco: Never Alcohol Use Standard Drinks/Week Comments Yes 0 (1 standard drink = 0.6 oz pure alcohol) once every couple of months or less [facility] Utilities Answer Date Recorded In the past 12 months has [employer], gas, oil, or water company threatened [...] AM EST Hospital Encounter Non[place] [address] Arrived 11/12/2024 8:00 AM EST Appointment Mammography/[place] [phone] Gabe Fong MD [facility] [place] [address] 11/30/2024 2:30 PM EDT Office [place] [address] Gabe Fong MD [facility] [place] [address] 12/07/2024 2:30 PM EDT TH Visit (TeleHealth) [place] [address] Rosemarie Morrow APRN [facility] [place] [address] documented as of this encounter Visit Diagnoses Not on filedocumented in this encounter Care Teams Supervising Producer Relationship Specialty Start Date End Date Marcio Devlin DO [address] [place] [address] PCP - General Family Medicine 11/11/17 documented as of this encounter
--- OUTSIDE RECORDS SUMMARY | 2024-10-04 16:02 | XMS_ITS | Encounter Summary ---
Author Organization [facility] [place] [address] Care Team Providers Care Account Executive Sales Representative Name Role Phone Marcio Devlin DO Primary Care Provider [phone] Encounter Details Date Type Department Care Team (Latest Contact Info) Description 08/17/2024 Travel Social History Tobacco Use Types Packs/Day Years Used Date Smoking Tobacco: Never Smokeless Tobacco: Never Alcohol Use Standard Drinks/Week Comments Yes 0 (1 standard drink = 0.6 oz pure alcohol) once every couple of months or less [facility] Utilities Answer Date Recorded In [...] in a residential (including now)? No 10/21/2023 IPV Inpatient Questions [...] AM EST Hospital Encounter Non-[place] [phone] Arrived 11/12/2024 8:00 AM EST Appointment Mammography/[place] [address] Gabe Fong MD [facility] [address] [place] [address] 11/30/2024 2:30 PM EDT Office [place] [address] Gabe Fong MD [facility] [address] [place] [address] 12/07/2024 2:30 PM EDT TH Visit (TeleHealth) [place] [address] Rosemarie Morrow, SKIP [facility] [place] [address] documented as of this encounter Visit Diagnoses Not on filedocumented in this encounter Care Teams Account Executive Sales Representative Relationship Specialty Start Date End Date Marcio Devlin DO [address] [place] [id number] PCP - General Family Medicine 11/11/17 documented as of this encounter
--- OUTSIDE RECORDS SUMMARY | 2024-10-04 16:02 | XMS_ITS | Encounter Summary ---
Author Organization [facility] [place] [address] Care Team Providers Care Rn Enterostomal Name Role Phone Marcio Devlin DO Primary Care Provider [phone] Encounter Details Date Type Department Care Team (Latest Contact Info) Description 07/27/2024 Travel Social History Tobacco Use Types Packs/Day Years Used Date Smoking Tobacco: Never Smokeless Tobacco: Never Alcohol Use Standard Drinks/Week Comments Yes 0 (1 standard drink = 0.6 oz pure alcohol) once every couple of months or less [facility] Utilities Answer Date Recorded In [...] AM EST Hospital Encounter Non-Invasive [place] [phone] Arrived 11/12/2024 8:00 AM EST Appointment Mammography/[place] [address] Gabe Fong MD [facility] [address] [place] [address] 11/30/2024 2:30 PM EDT Office [place] [address] Gabe Fong MD [facility] [address] [place] [address] 12/07/2024 2:30 PM EDT TH Visit (TeleHealth) [place] [address] Rosemarie Morrow, SKIP [facility] [place] [address] documented as of this encounter Visit Diagnoses Not on filedocumented in this encounter Care Teams Rn Enterostomal Relationship Specialty Start Date End Date Marcio Devlin DO [address] [place] [id number] PCP - General Family Medicine 11/11/17 documented as of this encounter
--- OUTSIDE RECORDS SUMMARY | 2024-10-04 16:02 | XMS_ITS | Encounter Summary ---
Author Organization [facility] [place] [address] Care Team Providers Care Guard Manager Name Role Phone Marcio Devlin DO Primary Care Provider [phone] Encounter Details Date Type Department Care Team (Latest Contact Info) Description 07/27/2024 3:30 PM EST Office [place] [phone] Gabe Fong MD [facility] [place] [address] High risk medication use; Medication monitoring encounter; Ulcerative colitis without complications, unspecified location; Ankylosing spondylitis of cervical region; Primary osteoarthritis of both hips; Inflammatory arthropathy; Arthralgia of both hands; Osteopenia, unspecified location Social History Tobacco Use Types Packs/Day Years Used Date Smoking Tobacco: Never Smokeless Tobacco: Never Alcohol Use Standard Drinks/Week Comments Yes 0 (1 standard drink = 0.6 oz pure alcohol) once every couple of months or less [facility] Utilities Answer Date Recorded In the past [...] Sign Reading Time Taken Comments Blood Pressure 135/65 07/27/2024 3:04 PM EST Pulse 72 07/27/2024 3:04 PM EST Temperature 36.8 ??C (98.2 ??F) 07/27/2024 3:04 PM ES T Respiratory Rate 18 07/27/2024 3:04 PM EST Oxygen Saturation 100% 07/27/2024 3:04 PM EST Inhaled Oxygen Concentration - - Weight 79.8 kg (176 lb) 07/27/2024 3:04 PM EST Height 166.4 cm (5' 5.5) 07/27/2024 3:04 PM EST Body Mass Index 28.84 07/27/2024 3:04 PM EST documented in this encounter Progress Notes * Gabe Fong MD - 07/27/2024 3:30 PM EST Rheumatology Follow-Up Note PCP: Marcio Devlin DO, [...] 2005 Interval History: Kim Funes is a 64 y.o. female PMHx of MÉNDEZ and UC with presenting for follow up who hasbeen maintained on Humira and Sulfasalazine since beginning of 2010 and has been doing overall verywell since with no ADRs reported or known from current medication regimen. She is doing well on Rinvoq. Joint pains have resolved. UC question of being more active she has had some loose stolls rDenies synovitis (swollen red or warm joints) or MS She has had no issues with thrombosis, infections, night sweats weight loss no financial difficulties getting her medications. She received follow-up with gastroenterology and had a colonoscopy whichreports was in normal limits Elevated lipid profile reocmmend her discuss with PCP Rheumatic history (x) means positive Iritis Dactylitis [...] reviewedand updated as appropriate. Physical Exam: BP 135/65 (BP Location (NBP): Left arm, Patient Position: Sitting) Pulse 72 Temp 36.8 ??C (98.2??F) Resp 18 Ht 166.4 cm (5' 5.5) Wt 79.8 kg (176 lb) SpO2 100% BMI 28.84 kg/m?? General: NAD Neck: Reduced ROM per patient unchanged, limited extension Cardiovascular: RR, (-)murmurs, rubs, or gallops. Lungs: Clear to auscultation bilaterally. (-)R/R/W Abdomen: Soft, non tender, non distended, + bowel sounds, Neuro: Alert and oriented x3. Cranial nerves III through XII grossly intact. Skin: (-)ulcers, (-)rash Vascular: Pulses are equal in all extremities. MSK Back: Non tender over the spine and costovertebral angles bilaterally. (-)Radha Shober 13.5 last visit defeerred today Mid back pain - l resolved Extremities [...] Assessment and plan: Kim Funes is a 64 y.o. female PMHx of MÉNDEZ and UC with presenting for follow up who hasbeen maintained on Humira and Sulfasalazine since beginning of 2010 and has been overall been well controlled with known or reported ADRs from medications. Ulcerative colitis related with ankylosing spondylitis- -Disease activity elated to the joints reported as in remission - UC msy be more active - if active could disuss with GI to increase the rinovoq dose. High risk medication FDA review of a large, randomized safety clinical trial, we have concluded that there is an increased risk of serious infections, heart-related events such as heart attack or stroke, cancer, blood clots, and , Laboratory monitoring required every 3 to 4 months CBC LFTs creatinine lipid profile every 6 monthsprescreening for HIV TB and hepatitis Orders Placed This Encounter Procedures DXA Central Spine, Hip, and/or Whole Body (Generic) Creatinine Aspartate Aminotransferase Alanine Aminotransferase CBC (with Diff) Lipid Panel (Reflex Direct LDL) Vitamin D, 25-Hydroxy PTH Magnesium Phosphorus Calcium Return in about 3 months (around 10/27/2024). > 41 minutes total documented in this encounter Plan of Treatment Upcoming Encounters Date Type Department Care Team (Late st Contact Info) Description 10/16/2024 10:00 AM EST Hospital Encounter Non[place] [phone] Arrived 11/12/2024 8:00 AM EST Appointment Mammography/[place] [address] Gabe Fong MD [facility] [place] [address] [place] [address] 11/30/2024 2:30 PM EDT Office [place] [address] Gabe Fong MD [facility] [address] [place] [address] 12/07/2024 2:30 PM EDT TH Visit (TeleHealth) Gastroenterology at [place] [phone] Rosemarie Morrow APRN [facility] [place] [address] Scheduled Orders Name Type Priority Associated Diagnoses Orde r Schedule Creatinine Lab Routine High risk medication use Medication monitoring encounter Ulcerative colitis without complications, unspecified location Ankylosing spondylitis of cervical region Primary osteoarthritis of both hips Inflammatory arthropathy Arthralgia of both hands Every 3 months for 4 Occurrences starting 07/27/2024 until 07/27/2025 Aspartate Aminotransferase Lab Routine High risk medication use Medication monitoring encounter Ulcerative colitis without complications, unspecified location Ankylosing spondylitis of cervical region Primary osteoarthritis of both hips Inflammatory arthropathy Arthralgia of both hands Every 3 months for 5 Occurrences starting 07/27/2024 until 07/28/2025 Alanine Aminotransferase Lab Routine High risk medication use Medication monitoring encounter Ulcerative colitis without complications, unspecified location Ankylosing spondylitis of cervical region Primary osteoarthritis of both hips Inflammatory arthropathy Arthralgia of both hands Every 3 months for 5 Occurrences starting 07/27/2024 until 07/28/2025 CBC (with Diff) Lab Routine High risk medication use Medication monitoring encounter Ulcerative colitis without complications, unspecified location Ankylosing spondylitis of cervical region Primary osteoarthritis of both hips Inflammatory arthropathy Arthralgia of both hands Every 3 months for 4 Occurrences starting 07/27/2024 until 07/27/2025 DXA Central Spine, Hip, and/or Whole Body (Generic) Imaging Routine High risk medication use Medication monitoring encounter Ulcerative colitis without complications, unspecified location Ankylosing spondylitis of cervical region Inflammatory arthropathy Osteopenia, unspecified location Expected: 07/27/2024, Expires: 07/27/2025 Vitamin D, 25-Hydroxy Lab Routine High risk medication use Medication monitoring encounter Ulcerative colitis without complications, unspecified location Ankylosing spondylitis of cervical region Inflammatory arthropathy Osteopenia, unspecified location Expected: 07/27/2024, Expires: 07/27/2025 PTH Lab Routine High risk medication use Medication monitoring encounter Ulcerative colitis without complications, unspecified location Ankylosing spondylitis of cervical region Inflammatory arthropathy Osteopenia, unspecified location Expected: 07/27/2024, Expires: 01/26/2025 Magnesium Lab Routine High risk medication use Medication monitoring encounter Ulcerative colitis without complications, unspecified location Ankylosing spondylitis of cervical region Inflammatory arthropathy Osteopenia, unspecified location Expected: 07/27/2024 (Approximate), Expires: 01/26/2025 Phosphorus Lab Routine High risk medication use Medication monitoring encounter Ulcerative colitis without complications, unspecified location Ankylosing spondylitis of cervical region Inflammatory arthropathy Osteopenia, unspecified location Expected: 07/27/2024 (Approximate), Expires: 01/26/2025 Calcium Lab Routine High risk medication use Medication monitoring encounter Ulcerative colitis without complications, unspecified location Ankylosing spondylitis of cervical region Primary osteoarthritis of both hips Inflammatory arthropathy Arthralgia of both hands Osteopenia, unspecified location Expected: 07/27/2024 (Approximate), Expires: 01/26/2025 documented as of this encounter Results * Lipid Panel (Reflex Direct LDL) (07/27/2024 2:28 PM EST) Cholesterol, Total 151 mg/dL 07/27/2024 3:42 PM [facility] Comment: Desirable: < 200 mg/dL Borderline High: 200 - 239 mg/dL High: > or = 240 mg/dL Triglyceride 324 mg/dL 07/27/2024 3:42 PM [facility] Comment: Normal: <150 mg/dL Borderline High: 150-199 mg/dL High: 200-499 mg/dL Very High: > or =500 mg/dL HDL Cholesterol 46 mg/dL 3:42 PM [facility] Comment:Female: High Risk: < 50 mg/dL LDL Cholesterol 55 mg/dL 3:42 PM [facility] Comment: Desirable: <100 mg/dL Above Desirable: 100-129 mg/dL Borderline High: 130-159 mg/dL High: 160-189 mg/dL Very High: > or =190 mg/dL Note: LDL calculation updated to the NIH LDL formula as of 04/18/2024 Non-HDL Cholesterol 105 mg/dL 07/27/2024 3:42 PM [facility] Comment: Desirable: <130 mg/dL Above Desirable: 130-159 mg/dL Borderline High: 160-189 mg/dL High: 190-219 mg/dL Very High: > or = 220 mg/dL Blood VENOUS BLOOD SPECIMEN / Unknown Venipuncture / Unknown 07/27/2024 2:28 PM EST 07/27/2024 2:28 PM EST [facility] - 07/27/2024 3:42 PM EST It [...] even lower. ?? ACC/AHA Guidelines (most recently Farn et al. [facility] 06/18/22): * For individuals with atherosclerotic cardiovascular [...] artery disease) Gabe Fong MD [place] [address] documented in this encounter Visit Diagnoses Diagnosis High risk medication use Encounter for long-term (current) use of other medications Medication monitoring encounter Encounter for therapeutic drug monitoring Ulcerative colitis without complications, unspecified location Ankylosing spondylitis of cervical region Ankylosing spondylitis Primary osteoarthritis of both hips Primary localized osteoarthrosis, pelvic region and thigh Inflammatory arthropathy Arthropathy, unspecified, site unspecified Arthralgia of both hands Osteopenia, unspecified location documented in this encounter Care Teams Guard Manager Relationship Specialty Start Date End Date Marcio Devlin DO [address] [place], [place] [address] [address] PCP - General Family Medicine 11/11/17 documented as of this encounter
--- OUTSIDE RECORDS SUMMARY | 2024-10-04 16:02 | XMS_ITS | Encounter Summary ---
Author Organization [facility] [place] [address] Care Team Providers Care Sales Vice President Name Role Phone Marcio Devlin DO Primary Care Provider [phone] Encounter Details Date Type Department Care Team (Late st Contact Info) Description 07/07/2024 Specialty [place] [phone] Tangela Agarwal, CLINICAL MARKETING MANAGER Social History Tobacco Use Types Packs/Day Years Used Date Smoking Tobacco: Never Smokeless Tobacco: Never Alcohol Use Standard Drinks/Week Comments Yes 0 (1 standard drink = 0.6 oz pure alcohol) once every couple of months or less [facility] Utilities Answer Date Recorded In the past 12 months has [employer], gas, oil, or water [employer] threatened to shut off services in your [...] this encounter Progress Notes * Tangela Agarwal CPHT - 07/07/2024 11:25 AM EDT The [facility]. At this time the patient's insurance mandates this medication to be filled through [facility]. documented in this encounter Plan of Treatment Upcoming Encounters Date Type Department Care Team (Late st Contact Info) Description 10/16/2024 10:00 AM EST Hospital Encounter Non-[place] [address] Arrived 11/12/2024 8:00 AM EST Appointment Mammography/DXA at [place] [address] Gabe Fong MD [facility] [place] [address] 11/30/2024 2:30 PM EDT Office Visit Rheumatology at [place] [phone] Gbae Fong MD [facility] [place] [address] 12/07/2024 2:30 PM EDT TH Visit (TeleHealth) [place] [address] Rosemarie Morrow, SKIP [facility] [place] [address] documented as of this encounter Visit Diagnoses Not on filedocumented in this encounter Care Teams Sales Vice President Relationship Specialty Start Date End Date Marcio Devlin DO [address] [place] [address] PCP - General Family Medicine 11/11/17 documented as of this encounter
--- OUTSIDE RECORDS SUMMARY | 2024-10-04 16:02 | XMS_ITS | Encounter Summary ---
Author Organization [facility] [place] [address] Care Team Providers Care Fuel Distribution System Operator Name Role Phone Marcio Devlin DO Primary Care Provider [phone] Reason for Referral * Diagnostic Test (Routine) - Denied Specialty Diagnoses / Procedures [facility]erred To Contact Radiology Diagnoses Abnormal liver function test Metabolic dysfunction-associated steatohepatitis (MASH) Ulcerative pancolitis without complication Procedures MRI Elastography wo Contrast Clau Cruz MD [facility] [place] [address] [place] [address] Referral ID Status Reason Start Date Expiration Date V isits Requested Visits Authorized [id number] Denied Specialty Service Requested 07/09/2024 01/07/2026 1 0 * Diagnostic Test (Routine) - Closed Specialty Diagnoses / Procedures Referred By [facility] Referred To Contact Radiology Diagnoses Abnormal liver function test Metabolic dysfunction-associated steatohepatitis (MASH) Ulcerative pancolitis without complication Procedures MRI Cholangiopancreatography wwo Contrast Clau Cruz MD [facility] [place] [address] [facility] [place] [address] Referral ID Status Reason Start Date Expiration Date V isits Requested Visits Authorized [id number] Closed Specialty Service Requested 07/09/2024 01/07/2026 1 1 Encounter Details Date Type Department Care Team (Latest Contact Info) Description 07/09/2024 9:00 AM EDT Office [place] [address] [facility] [place] [address] Abnormal liver function test; Metabolic dysfunction-associated steatohepatitis (MASH); Ulcerative pancolitis without complication Social History Tobacco Use Types Packs/Day Years Used Date Smoking Tobacco: Never Smokeless Tobacco: Never Alcohol Use Standard Drinks/Week Comments Yes 0 (1 standard drink = 0.6 oz pure alcohol) once every couple of months or less [facility] Utilities Answer Date Recorded In the past 12 months has e electric, gas, oil, or water [employer] threatened to shut off services in your [...] Sign Reading Time Taken Comments Blood Pressure 129/73 07/09/2024 9:19 AM EDT Pulse 74 07/09/2024 9:19 AM EDT Temperature - - Respiratory Rate - - Oxygen Saturation - - Inhaled Oxygen Concentration - - Weight 84.6 kg (186 lb 6.4 oz) 07/09/2024 9:19 A M EDT Height 166.4 cm (5' 5.5) 07/09/2024 9:19 AM EDT Body Mass Index 30.55 07/09/2024 9:19 AM EDT documented in this encounter Progress Notes * Clau Cruz MD - 07/09/2024 9:00 AM EDT Images from the original note were not included. Gastroenterology and Hepatology Follow Up Note Patient: Kim Funes : 1960 Provider: Clau Cruz MD Problem List: Biopsy proven MASH (bx 03/2010, F2). She was previously seen by Dr. Chan, with the last visit in 2010. Mild increase of alk phos (highest report level was 144 in 02/2006). Dr. Chan started on ursodiol [id number]. No prior liver imaging. No evidence of PSC on liver biopsy. Fibroscan 06/2020: 6.6 kPa (F0-1) Latest Reference Range & Units 08/14/10 15:52 08/19/11 17:44 05/18/14 16:41 09/14/14 10:12 03/01/15 11:48 02/29/16 14:42 09/27/16 12:10 01/02/17 14:31 05/06/17 17:03 08/14/17 12:06 11/11/17 16: 15:03 08/31/18 11:34 02/18/19 17:18 06/01/19 15:22 11/09/19 13:19 12/13/21 10:05 02/22/22 11:05 06/27/23 14:40 Bilirubin, Total 0.2 - 1.3 mg/dL 0.2 0.4 0.3 0.4 0.4 0.4 0.5 0.3 0.3 0.4 0.3 0.3 0.4 0.2 0.2 0.4 0.3 0.4 0.3 (E) Bilirubin, Direct 0.0 - 0.3 mg/dL 0.1 0.1 0.1 0.1 0.1 0.1 0.1 0.1 <0.1 0.1 0.1 Alkaline Phosphatase 35 - 105 unit/L 135 (H) 115 (H) 108 (H) 117 (H) 82 78 73 82 89 91 94 91 89 96 91 82 134 (H) 122 (H) 135 (H) (E) Aspartate Aminotransferase 0 - 30 unit/L 63 (H) 53 (H) 34 (H) 45 (H) 51 (H) 63 (H) 46 (H) 31 (H) 37(H) 75 (H) 43 (H) 36 (H) 25 23 19 19 23 23 23 (E) Alanine Aminotransferase 0 - 30 unit/L 69 (H) 67 (H) 37 (H) 57 (H) 64 (H) 83 (H) 55 (H) 34 (H) 42 (H) 84 (H) 57 (H) 48 (H) 26 19 15 12 17 19 26 (E) Problem List: 1. MASH (stage 2 in 03/24) a. Labs (03/24) [...] 2/3, stage 2/4, steatosis 3/3, + ballooning D. Fibroscan 2020 6.6 kPa (F0-1) 2. Ankylosing Spondylitis, 92' 3. Ulcerative Colitis [...] (p) / (+), Twinrix vaccine: completed (02/23) All parties consented to the use of LEXIE to document this visit. Subjective History of Present Illness The patient is a 64-year-old woman who is here for evaluation for metabolic dysfunction associated steatohepatitis. She reports no jaundice or itching. She had been losing weight, reaching 169 pounds, but has since gained 20 pounds since October 2023. Her hemoglobin A1c was last recorded at 5.8, with the highest ever being 6.1. She is currently on Lipitor for cholesterol management. Current Outpatient Medications Medication Sig Dispense Refill amLODIPine (Norvasc) 10 mg tablet Take 1 tablet by mouth daily. Rinvoq 15 mg ER 24 hr tablet [...] by mouth daily. SUMAtriptan (IMITREX) 20 mg/actuation [place], Non-Aerosol 1 spray as needed. metFORMIN (GLUCOPHAGE) [...] 1,000 mg tablet 1000MG, PO, Once daily No current facility-administered medications for this visit. Objective Blood pressure 129/73, pulse 74, height 166.4 cm (5' 5.5), weight 84.6 kg (186 lb 6.4 oz). Body mass index is 30.55 kg/m??. Physical Exam Appears well, NAD Results Laboratory Studies Alkaline phosphatase 146, AST 25, ALT 29. Hemoglobin A1c 5.8. Assessment & Plan 1. Metabolic dysfunction associated steatohepatitis (MASH). Her liver enzymes, specifically AST and ALT, are within normal limits, but there is a mild elevation in alkaline phosphatase. This elevation could be due to MASH or primary sclerosing cholangitis (PSC). An MRI scan of the liver, including an MRCP, will be ordered to investigate the cause of the elevated alkaline phosphatase and to check for any strictures or narrowing within the bile ducts. MRI elastography will also be done to assess liver stiffness (fibrosis). She is advised to continue her current medication regimen, including Lipitor (atorvastatin), which she has been on for years. 2. Prediabetes. Her hemoglobin A1c is 5.8, which is within the prediabetic range. She is advised to continue monitoring her blood sugar levels every 6 months with her primary care physician. Lifestyle modifications,including weight management, are recommended to prevent progression to diabetes. Follow-up Return in 1 week for follow-up to review MRI results. Clau Cruz MD Section of Gastroenterology & Hepatology [address] [place] [id number] Cc: Marcio Devlin DO documented in this encounter Plan of Treatment Upcoming Encounters Date Type Department Care Team (Late st Contact Info) Description 10/16/2024 10:00 AM EST Hospital Encounter Non-[place]vasive [place] [phone] Arrived 11/12/2024 8:00 AM EST Appointment Mammography/DXA at [place] [phone] [facility] [place] [address] 11/30/2024 2:30 PM EDT Office Visit Rheumatology at [place] [phone] [facility] [place] [address] 12/07/2024 2:30 PM EDT TH Visit (TeleHealth) [place] [address] [facility] [place] [address] documented as of this encounter Results * MRI Cholangiopancreatography wwo Contrast (08/20/2024 10:43 AM EST) WORKSTATION ID [id number] RAD Anatomical Region Laterality Modality Magnetic Resonan [...] of the ACR Incidental Findings Committee by kendall Mcgraw al. in Journal of the [employer], Volume 14, Issue 7, Pages 911 to 924. LI-RADS Categories: LR-TIV = Tumor in vein [...] criteria and documentation are available online at [email or web address]://[email or web address].org/Clinical-[email or web address]-[email or web address]-Systems/[email or web address]. This report utilizes LI-RADS version 2018. Thank you for letting us participate in the care of this patient. ??If you are a health care provider and have any questions regarding this report, please contact the number below. ??For patients who have questions please contact the health pet care associate that requested your imaging first. ? Narrative 08/21/2024 7:35 AM EST EXAMINATION: MRI CHOLANGIOPANCREATOGRAPHY WWO CONTRAST ? CLINICAL HISTORY: pt with kamlesh OVALLES, F2 [...] similar prior examination provided for comparison. FINDINGS: Tooling Manager Images: Noncontributory. Lower chest: There is susceptibility [...] no similar prior examination provided forcomparison. FINDINGS: Tooling Manager Images: Noncontributory. Lower chest: There is susceptibility [...] Volume 14, Issue 7, Pages 911 to 164. LI-RADS Categories: LR-TIV = Tumor in vein [...] criteria and documentation are available online at [email or web address]://[email or web address].org/Clinical-Resources/[email or web address]-[email or web address]/[email or web address].This report utilizes LI-RADS version 2018. Thank you for letting us participate in the care of this patient. If youare a health care provider and have any questions regarding this report,please contact the number below. For patients who have questions please contactthe health pet care associate that requested your imaging first. Clau Cruz MD [facility] MRI ORDERABLES * MRI Elastography wo Contrast (08/17/2024 5:05 PM EST) WORKSTATION ID [id number] [facility] Anatomical Region Laterality Modality Abdomen Right Magnetic [...] who have questions please contact the health pet care associate that requested your imaging first. ? Narrative 08/19/2024 10:42 AM EST EXAMINATION: MRI [...] patients who have questions please contactthe health pet care associate that requested your imaging first. Authorizing Provider Result Emeka Cruz MD IMG MRI ORDERABLES documented in this encounter Visit Diagnoses Diagnosis Abnormal liver function test Other abnormal blood chemistry Metabolic dysfunction-associated steatohepatitis (MASH) Ulcerative pancolitis without complication Abnormal liver function test Other abnormal blood chemistry Metabolic dysfunction-associated steatohepatitis (MASH) Ulcerative pancolitis without complication Abnormal liver function test Other abnormal blood chemistry Metabolic dysfunction-associated steatohepatitis (MASH) Ulcerative pancolitis without complication documented in this encounter Care Teams Fuel Distribution System Operator Relationship Specialty Start Date End Date Marcio Devlin DO [address] [place] [address] [place] [address] PCP - General Family Medicine 11/11/17 documented as of this encounter
--- OUTSIDE RECORDS SUMMARY | 2024-10-04 16:02 | XMS_ITS | Encounter Summary ---
Author Organization [facility] [place] [address] Care Team Providers Care Zig Zag Stitcher Name Role Phone Marcio Devlin DO Primary Care Provider [phone] Encounter Details Date Type Department Care Team (Latest Contact Info) Description 07/20/2024 Travel Social History Tobacco Use Types Packs/Day Years Used Date Smoking Tobacco: Never Smokeless Tobacco: Never Alcohol Use Standard Drinks/Week Comments Yes 0 (1 standard drink = 0.6 oz pure alcohol) once every couple of months or less [facility] Utilities Answer Date Recorded In the [...] AM EST Hospital Encounter Non-[place]vasive [place] [phone] Arrived 11/12/2024 8:00 AM EST Appointment Mammography/[place] [phone] Gabe Fong MD [facility] [address] [place] [address] 11/30/2024 2:30 PM EDT Office [place] [phone] Gabe Fong MD [facility] [address] [place] [address] 12/07/2024 2:30 PM EDT TH Visit (TeleHealth) [place] [address] Rosemarie Morrow, SKIP [facility] [place] [address] documented as of this encounter Visit Diagnoses Not on filedocumented in this encounter Care Teams Zig Zag Stitcher Relationship Specialty Start Date End Date Marcio Devlin DO [address] [place] [address] PCP - General Family Medicine 11/11/17 documented as of this encounter
--- OUTSIDE RECORDS SUMMARY | 2024-10-04 16:02 | XMS_ITS | Clinical Summary ---
Author Organization [facility] [address] Care Team Providers Care Transformation Consultant Name Role Phone Marcio Devlin DO Primary Care Provider [phone] Allergies Active Allergy Reactions Criticality Noted Date [...] 3 11/15/2016 Active SUMAtriptan (IMITREX) 20 mg/actuation [place], Non-Aerosol 1 spray as needed. 11/03/2017 Activ [...] 2 g by mouth 2 times daily. Active cholecalciferol, Vitamin D3, (Vitamin D3) 1,000 unit Tablet Take by mouth daily. Active Asmanex HFA 200 mcg/actuation HFA Aerosol Inhaler Inhale 1 puff into the lungs daily. 07/12/2023 Active clindamycin (CLEOCIN T) 1 % LotionIndications:F olliculitis Apply to affected areas on abdomen twice daily for ten days. 60 mL 10/22/2023 Active Additional Information Patient not taking.Reported on 07/27/2024 atorvastatin (Lipitor) 40 mg tablet 11/24/2023 Active losartan (Cozaar) 100 mg tablet Take 1 tablet by mouth Daily at Noon. 11/11/2023 Active amLODIPine (Norvasc) 10 mg tablet Take 1 tablet by mouth daily. 07/02/2024 Active upadacitinib (Rinvoq) 15 mg ER 24 hr tablet Take 1 tablet by mouth daily. 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 Assessment & Plan (11/26/2023 4:39 PM EDT): This will be followed by electrophysiology. I will order a repeat limited transthoracic echocardiogram prior to our next visit. Complete heart block 10/20/2023 Overview (07/02/2024): 10/20 p/w fatigue, s/p A/V sequential PPM 05/08 no evidence of infiltrative disease on cardiac mri 07/08 preserved biventricular systolic function Assessment & Plan (07/02/2024 5:02 PM EDT): Her device will be continued followed in her device clinic. Assessment & Plan (11/26/2023 4:43 PM EDT): We will consider imaging for infiltrative/inflammatory disease. She denies any family history of sudden cardiac . In one survey of ankylosing spondylitis patient's 1 of 210 had complete heart block ([email or web address]). Having said she will still have some [...] ulcerative colitis. Hypertension 02/21/2011 Assessment & Plan (07/02/2024 4:47 PM EDT): Blood pressure is under better control with maximum dose amlodipine. Assessment & Plan (11/26/2023 4:38 PM EDT): [...] use 09/15/2009 Hyperlipidemia 04/15/2004 Assessment & Plan (07/02/2024 4:48 PM EDT): 04/07 LDL 73 HDL 59 TG 153 TC 162 She is tolerating her atorvastatin without issues. Assessment & Plan (11/26/2023 4:44 PM EDT): [...] 2020 - severe involvement of L colon, [id number] involvement of transverse and R colon. Worse compared to last exam. SSA at hepatic flexure Adalimumab level (garcía) was 12.7 Switched to Stelara ( 03/21/21, first infusion dose) d/t Lost of response to Humira. Stopped Uceris and sulfasalazine in January 2021. [place] 09/2022 - tubular featureless L colon with slightly diminished vascular pattern. Histology with mild colitis in sigmoid and inactive in descending. SSA in hep flex. [place] 09/2023 - In remission - altered architecture, as above. No dysplasia on histology. Assessment & Plan (07/02/2024 5:03 PM EDT): She reports her symptoms been under control. DIFFICULT AIRWAY Overview (02/24/2018): As described in 2006 anesthesia record in [facility]. Encounters Date Type Department Care Team Description 09/29/2024 Refill Rheumatology at [place] [id number] Gabe Fong MD 09/27/2024 Specialty Pharmacy Pharmacy at [place] [phone] Alex Cerrato Benefits Investigation (upadacitinib) for Rheumatology, Prior Authorization (upadacitinib) for Rheumatology 09/10/2024 Travel 08/31/2024 2:30 PM EST TH Visit (TeleHealth) Gastroenterology at [place] [phone] Clau Cruz MD IPMN (intraductal papillary mucinous neoplasm) 08/20/2024 7:57 AM EST - 08/20/2024 11:59 PM EST Hospital Encounter MRI at [place] [phone] Clau Cruz MD Discharge Disposition: Home 08/20/2024 7:57 AM EST - 08/20/2024 11:59 PM EST Hospital Encounter MRI at [place] [phone] Clau Cruz MD Abnormal liver function test; Metabolic dysfunction-associated steatohepatitis (MASH); Ulcerative pancolitis without complication Discharge Disposition: Home 08/19/2024 Travel 08/17/2024 1:36 PM EST - 08/17/2024 11:59 PM EST Hospital Encounter MRI at [place] [phone] Clau Cruz MD Discharge Disposition: Home 08/17/2024 1:35 PM EST Hospital Encounter MRI at [place] [phone] Clau Cruz MD Abnormal liver function test; Metabolic dysfunction-associated steatohepatitis (MASH); Ulcerative pancolitis without complication Discharge Disposition: Home 08/17/2024 Travel 08/16/2024 Ref[place] [address] Gabe Fong MD 08/10/2024 Travel 07/27/2024 5:00 PM EST Laboratory Appointment Lab [address] [place] [address] High risk medication use; Medication monitoring encounter; Ulcerative colitis without complications, unspecified location; Ankylosing spondylitis of cervical region; Primary osteoarthritis of both hips; Inflammatory arthropathy; Arthralgia of both hands 07/27/2024 3:30 PM EST Office [place] [address] Gabe Fong MD High risk medication use; Medication monitoring encounter; Ulcerative colitis without complications, unspecified location; Ankylosing spondylitis of cervical region; Primary osteoarthritis of both hips; Inflammatory arthropathy; Arthralgia of both hands; Osteopenia, unspecified location 07/27/2024 Travel 07/20/2024 Travel 07/18/2024 9:00 AM EST - 07/18/2024 11:59 PM EST Hospital Encounter Non-Invasive [place] [address] Discharge Disposition: Home 07/09/2024 9:00 AM EDT Office [place] [address] Clau Cruz MD Abnormal liver function test; Metabolic dysfunction-associated steatohepatitis (MASH); Ulcerative pancolitis without complication 07/09/2024 Orders [place] [address] Gabe Fong MD High risk medication use; Medication monitoring encounter; Ulcerative colitis without complications, unspecified location; Ankylosing spondylitis of cervical region 07/09/2024 Travel 07/07/2024 Specialty [place] [address] Tangela Agarwal CPHT from Last 3 Months Immunizations Name Administration Dates Next Due Covid-19 Monovalent (Moderna Spikevax) 12yrs+ (3194-6963) 01/13/2021,12/16/2020 Hepatitis A/B (TwinRix) 02/21/2011,08/14/2010 Influenza Quadrivalent, Preservative Free 2020,07/16/2019,07/27/2018 Influenza Trivalent w/Preservative 07/08/2014, Influenza Vaccine, Whole 06/15/2005 Pneumococcal 13-Valent Conju gate (Prevnar 13) 02/29/2016 Pneumococcal 23-Valent Polys accharide (Pneumovax 23) 03/29/2014,03/15/2014 Polio Inactivated (IPOL) 05/16/2013 Td Adult (Decavac, Tenivac) 03/30/2020 Tdap (Adacel, Boostrix) 01/26/2010 Tuberculin Skin Test, PPD 02/27/2009 Zoster Recombinant (ShingRix) 02/19/2020, 020 Family History Medical History Relation Comments Cancer [...] the past 12 months has th e [employer], gas, oil, or water [facility] threatened to shut off services in your [...] Pulse 85 08/20/2024 10:20 AM EST Temperature 36.8 ??C (98.2 ??F) 07/27/2024 3:04 PM ES T Respiratory Rate 20 08/20/2024 9:50 AM EST Oxygen Saturation 98% 08/20/2024 10:20 AM EST Inhaled Oxygen Concentration - - Weight 79.8 kg (176 lb) 07/27/2024 3:04 PM EST Height 166.4 cm (5' 5.5) 07/27/2024 3:04 PM EST Body Mass Index 28.84 07/27/2024 3:04 PM EST Plan of Treatment Upcoming Encounters Date Type Department Care Team (Late st Contact Info) Description 10/16/2024 10:00 AM EST Hospital Encounter Non-Invasive [place] [phone] Arrived 11/12/2024 8:00 AM EST Appointment Mammography/[place] [address] Gabe Fong MD [facility] [place] [address] 11/30/2024 2:30 PM EDT Office [place] [address] Gabe Fong MD [facility] [address] [place] [address] 12/07/2024 2:30 PM EDT TH Visit (TeleHealth) [place] [address] Rosemarie Morrow APRN [facility] [place] [address] Health Maintenance Due Date Last Done Comments CT Colonography 1961 FIT DNA 1961 FIT 1961 Sigmoidoscopy 1961 DM Opthalmology Exam 1971 DM Urine Microalbumin yearly 1971 HIV screen 1979 Hepatitis C Screening 1979 HPV test 1991 PAP Smear 1991 Breast Cancer Share Decision Needed 2001 Breast Cancer screening 2001 DM Hemoglobin A1c 11/18/2011 08/19/2011 Advance Directive 2016 Pneumoccocal Vaccine: 50+ (3 of 3 - PCV20 or PCV21) 02/28/2021 02/29/2016, 03/29/2014, 03/15/2014 RSV Vaccine (1 - Risk 60-74 years 1-dose series) 2021 Covid-19 Vaccine (3 - 2023-2 5 season) 2024 01/13/2021, 12/16/2020 Influenza (Flu) vaccine (1 o f 1 - Influenza standard series) 05/16/2024 09/28/2020, 07/16/2019, 07/27/2018, Additional history exists DM Creatinine yearly 07/27/2025 07/27/2024, 10/22/2023, 10/21/2023, Additional history exists Colonoscopy 09/18/2025 09/18/2023, 12/2023, 09/24/2022, Additional history exists Colorectal Cancer Screening 09/18/2025 Tetanus/Diphtheria/Pertussis Vaccines (3 - Td or Tdap) 03/30/2030 03/30/2020, 01/26/2010 Sigmoidoscopy (10 year) with FIT yearly 09/18/2033 09/18/2023, 09/18/2023, 09/24/2022, Additional history exists Zoster vaccine Completed 02/19/2020, 10/13/2019 Medical Devices Implanted Type Area Windows Application Packager Device Identifier Shelf Expiration Date Model / Serial / Lot Anselmo De La Cruz Urny, Incont ([id number]) - [id number] Implanted:Qty: 1 on 03/10/2018 by Liang Fong MD at [facility] IMPLANTS [facility] - [id number] 05/27/2020 RICHARD-DS01 B / / [id number] Bsx Ingevity + [id number] Lead10/21/2023 Implanted:Qty: 1 on 10/21/2023 by Dilip Berumen MD Lead Heart [employer] [id number] / [id number] / Bsx Ingevity + [id number] Lead-10/21/2023 Implanted:Qty: 1 on 10/21/2023 by Dilip Berumen MD Lead Heart [employer] [id number] / [id number] / Bsx Accolade Mri L311-10/21/2023 Implanted:Qty: 1 on 10/21/2023 by Dilip Berumen MD Pacemaker Chest Wall [employer] [id number] / [id number] / Description:When scanned at [facility] ([place]), the above implant (L311, [id number], [id number]) is [...] Comments CARDIAC DEVICE CHECK - REMOTE Routine 8:02 AM EST MRI CHOLANGIOPANCREATOGRAPHY WWO CONTRAST Routine 08/20/2024 10:43 AM EST Abnormal liver function test Metabolic dysfunction-associa barrett steatohepatitis (MASH) Ulcerative pancolitis without complication MRI ELASTOGRAPHY Routine 08/17/2024 5:05 PM EST Abnormal liver function test Metabolic dysfunction-associa barrett steatohepatitis (MASH) Ulcerative pancolitis without complication LIPID PANEL (REFLEX DIRECT LDL) Add-On 07/27/2024 2:28 PM EST High risk medication use Medication monitoring encounter Ulcerative colitis without complications, unspecified location Ankylosing spondylitis of cervical region Primary osteoarthritis of both hips Inflammatory arthropathy Arthralgia of both hands CREATININE STAT 07/27/2024 2:28 PM EST High risk medication use Medication monitoring encounter Ulcerative colitis without complications, unspecified location Ankylosing spondylitis of cervical region LAB SCAN 07/27/2024 12:00 AM EST LAB SCAN 07/07/2024 12:00 AM EDT LAB SCAN 07/06/2024 12:00 AM EDT LAB SCAN 07/05/2024 12:00 AM EDT COLONOSCOPY Routine 09/18/2023 3:57 PM EST HEMOGLOBIN A1C Routine 08/19/2011 5:44 PM EST from Last 3 Months or Most Recently Relevant to Health Maintenance Results * Cardiac Device Check - Remote (08/24/2024 8:02 AM EST) Anatomical Region Laterality Modality Other 08/24/2024 8:02 AM EST Lucien Noyola MD IMPLANTABLE CARDIAC DEVICE * MRI Cholangiopancreatography wwo Contrast (08/20/2024 10:43 AM EST) WORKSTATION ID [id number] DH RAD Anatomical Region Laterality Modality Magnetic [...] Barbosa et al. in Journal of the [place] [employer], Volume 14, Issue 7, Pages 911 to 923. LI-RADS Categories: LR-TIV = Tumor in vein [...] criteria and documentation are available online at https://www.acr.org/Clinical-Resources/Rfcnubgpk-gcx-Payt-Systems/LI-RADS. This report utilizes LI-RADS version 2018. Thank you for letting us participate in the care of this patient. ??If you are a health care provider and have any questions regarding this report, please contact the number below. ??For patients who have questions please contact the health rn urgent care that requested your imaging first. ? Electronically signed by: Glenn Melton DO, [facility] ([phone]), at 08/21/2024 7:35 AM Narrative 08/21/2024 7:35 [...] similar prior examination provided for comparison. FINDINGS: Tube Inspector Images: Noncontributory. Lower chest: There is susceptibility [...] no similar prior examination provided forcomparison. FINDINGS: Tube Inspector Images: Noncontributory. Lower chest: There is susceptibility [...] of Radiology, Volume 14, Issue 7, Pages 571 to 944. LI-RADS Categories: LR-TIV = Tumor in vein [...] criteria and documentation are available online at https://www.acr.org/Clinical-Resources/Kdxssraeh-srn-Jenk-Systems/LI-RADS.This report utilizes LI-RADS version 2018. Thank you for letting us participate in the care of this patient. If youare a health care provider and have any questions regarding this report,please contact the number below. For patients who have questions please contactthe health rn urgent care that requested your imaging first. Electronically signed by: Glenn Melton DO, [facility]([phone]), at 08/21/2024 7:35 AM Clau Cruz MD IMG MRI ORDERABLES * MRI Elastography wo Contrast (08/17/2024 5:05 PM EST) WORKSTATION ID [id number] RAD Anatomical Region Laterality Modality Abdomen Right Magnetic [...] have questions please contact the health rn urgent care that requested your imaging first. ? Electronically signed by: Glenn Woodruff MD, [facility] ([phone]), at 08/19/2024 10:42 AM Narrative 08/19/2024 10:42 [...] who have questions please contactthe health rn urgent care that requested your imaging first. Electronically signed by: Glenn Woodruff MD, [facility]([phone]), at 08/19/2024 10:42 AM Clau Cruz MD IM MRI ORDERABLES * Creatinine (07/27/2024 2:28 PM EST) Creatinine 1.20 0.70 - 1.20 mg/dL 07/27/2024 3:[address] [facility] Est Glomerular Filtration Rate - Female 51 mL/min/1. 73 m?? 07/27/2024 3:05 PM [facility] Comment: This patient's estimated GFR was [...] PM EST Gabe Fong MD CHEMISTRY ORDERABLES [facility] [place] [address] * Lipid Panel (Reflex Direct LDL) (07/27/2024 2:28 PM EST) Cholesterol, Total 151 mg/dL 07/27/2024 3:42 PM [facility] Comment: Desirable: < 200 mg/dL Borderline High: 200 - 239 mg/dL High: > or = 240 mg/dL Triglyceride 324 mg/dL 07/27/2024 3:42 PM [facility] Comment: Normal: <150 mg/dL Borderline High: 150-199 mg/dL High: 200-499 mg/dL Very High: > or =500 mg/dL HDL Cholesterol 46 mg/dL 3:42 PM [facility] Comment:Female: High Risk: < 50 mg/dL LDL Cholesterol 55 mg/dL 4 3:42 PM [facility] Comment: Desirable: <100 mg/dL Above Desirable: 100-129 mg/dL Borderline High: 130-159 mg/dL High: 160-189 mg/dL Very High: > or =190 mg/dL Note: LDL calculation updated to the NIH LDL formula as of 04/18/2024 Non-HDL Cholesterol 105 mg/dL 07/27/2024 3:42 PM [facility] Comment: Desirable: <130 mg/dL Above Desirable: 130-159 mg/dL Borderline High: 160-189 mg/dL High: 190-219 mg/dL Very High: > or = 220 mg/dL Blood VENOUS BLOOD SPECIMEN / Unknown Venipuncture / Unknown 07/27/2024 2:28 PM EST 07/27/2024 2:28 PM EST [facility] - 07/27/2024 3:42 PM [...] ACC/AHA Guidelines (most recently Fran et al. [facility] 06/18/22): * For individuals with [...] artery disease) Gabe Fong MD CHEMISTRY ORDERABLES [facility] [place] [address] * Scan Doc: Lab (07/27/2024 12:00 AM EST) Only the most recent of4 resultswithin the time period is included. Narrative 07/27/2024 12:00 AM EST Ordered by an unspecified provider. Scanning Provider MEDIA MGR SCAN EXT O RDR/RSLT * COLONOSCOPY (09/18/2023 3:57 PM EST) COLONOSCOPY [facility] Endoscopy ___ Procedure Date: 09/18/2023 3:57 PM ? Patient Name: Kim Funes ? Date of : 1960 ? Age: 63 ? Order #: [id number] ? Instrument Name: [id number] ? ___ Procedure: ? Colonoscopy Indications: ? [...] preparation was evaluated ? using the BBPS ([place] Bowel ? Preparation Scale) with scores of: [...] ? - Please have labs checked at [facility]. ? - Await pathology results. ? Attending Participation: ? I personally performed the entire procedure. ? _ L. Jose Rachel MD 09/18/2023 5:05:33 PM Number of Addenda: 0 Note Initiated On: 09/18/2023 3:57 PM [facility] 09/18/2023 3:57 PM EST Marcio Devlin DO GENERAL SURGICAL ORD ERABLES [facility] * HEMOGLOBIN A1C (08/19/2011 5:44 PM EST) Hemoglobin A1c 5.6 4.3 - 6.1 % [facility] Estimated Average Glucose 114 mg/dL [facility] Comment: eAG equivalents for HbA1c percentages: [...] into estimated average glucose values. ??Diabetes Care 2008:31(8):1938-8963. Blood specimen (specimen) 08/19/2011 5:44 PM EST 08/19/2011 5:48 PM EST Marc Chan MD CHEMISTRY ORDERABLES [facility] from Last 3 Months or Most Recently [...] capacity to make decision: Yes Care Teams Transformation Consultant Relationship Specialty Start Date End Date Marcio Devlin DO [address] [place] [id number] PCP - General Family Medicine 11/11/17
--- OUTSIDE RECORDS SUMMARY | 2024-10-04 16:02 | XMS_ITS | Encounter Summary ---
Author Organization [facility] [place] [address] Care Team Providers Care Axminster Weaver Name Role Phone Marcio Devlin DO Primary Care Provider [phone] Encounter Details Date Type Department Care Team (Latest Contact Info) Description 09/10/2024 Travel Social History Tobacco Use Types Packs/Day [...] AM EST Hospital Encounter Non-[place] [address] Arrived 11/12/2024 8:00 AM EST Appointment Mammography/[place] [address] Gabe Fong MD [facility] [address] [place] [address] 11/30/2024 2:30 PM EDT Office [place] [address] Gabe Fong MD [facility] [address] [place] [address] 12/07/2024 2:30 PM EDT TH Visit (TeleHealth) [place] [address] Rosemarie Morrow, SKIP [facility] [place] [address] documented as of this encounter Visit Diagnoses Not on filedocumented in this encounter Care Teams Axminster Weaver Relationship Specialty Start Date End Date Marcio Devlin DO [address] [place] [id number] PCP - General Family Medicine 11/11/17 documented as of this encounter
--- OUTSIDE RECORDS SUMMARY | 2024-10-04 16:02 | XMS_ITS | Encounter Summary ---
Author Organization [facility] Address [facility] [place] [address] Care Team Providers Care Crop Farm Helper Name Role Phone Marcio Devlin DO Primary Care Provider [phone] Encounter Details Date Type Department Care Team (Late st Contact Info) Description 07/09/2024 Orders [place] [address] Gabe Fong MD [facility] [address] [place] [address] High risk medication use; Medication monitoring encounter; Ulcerative colitis without complications, unspecified location; Ankylosing spondylitis of cervical region Social History [...] AM EST Hospital Encounter Non-[place] [address] Arrived 11/12/2024 8:00 AM EST Appointment Mammography/[place] [address] Gabe Fong MD [facility] [place] [place] [address] 11/30/2024 2:30 PM EDT Office [place] [address] Gabe Fong MD [facility] [place] [place] [address] 12/07/2024 2:30 PM EDT TH Visit (TeleHealth) [place] [address] Rosemarie Morrow APRN [facility] [place] [address] documented as of this encounter Results * Creatinine (07/27/2024 2:28 PM EST) Creatinine 1.20 0.70 - 1.20 mg/dL 07/27/2024 3:05 PM EST [facility] Est Glomerular Filtration Rate - Female 51 mL/min/1. 73 m?? 07/27/2024 3:05 PM EST [facility] Comment: This patient's estimated GFR [...] PM EST Gabe Fong MD CHEMISTRY ORDERABLES [facility] [place] [address] documented in this encounter Visit Diagnoses Diagnosis High risk medication use Encounter for long-term (current) use of other medications Medication monitoring encounter Encounter for therapeutic drug monitoring Ulcerative colitis without complications, unspecified location Ankylosing spondylitis of cervical region Ankylosing spondylitis documented in this encounter Care Teams Crop Farm Helper Relationship Specialty Start Date End Date Marcio Devlin DO [address] [place] [address] PCP - General Family Medicine 11/11/17 documented as of this encounter
--- OUTSIDE RECORDS SUMMARY | 2024-10-04 16:02 | XMS_ITS | Encounter Summary ---
Author Organization [facility] [place] [address] Care Team Providers Care Director Underwriter Sales Name Role Phone Marcio Devlin DO Primary Care Provider [phone] Reason for Referral * Diagnostic Test (Routine) - Closed Specialty Diagnoses / Procedures Referred By Contac Referred To Contact Radiology Diagnoses Abnormal liver function test Metabolic dysfunction-associated steatohepatitis (MASH) Ulcerative pancolitis without complication Procedures MRI Cholangiopancreatography wwo Contrast Clau Cruz MD [facility] [place] [address] [place] [address] Referral ID Status Reason Start Date Expiration Date V isits Requested Visits Authorized [id number] Closed Specialty Service Requested 07/09/2024 01/07/2026 1 1 Reason for Visit * Diagnostic Test (Routine) - Closed Specialty Diagnoses / Procedures Referred By Missy Referred To Contact Radiology Diagnoses Abnormal liver function test Metabolic dysfunction-associated steatohepatitis (MASH) Ulcerative pancolitis without complication Procedures MRI Cholangiopancreatography wwo Contrast Clau Cruz MD [facility] [place] [address] [facility] [place] [address] Referral ID Status Reason Start Date Expiration Date V isits Requested Visits Authorized [id number] Closed Specialty Service Requested 07/09/2024 01/07/2026 1 1 Encounter Details Date Type Department Care Team (Latest Contact Info) Description 08/20/2024 7:57 AM EST - 08/20/2024 11:59 PM [facility] Hospital Encounter MRI at [facility] [place] [address] Clau Cruz MD [facility] [place] [address] Abnormal liver function test; Metabolic dysfunction-associated steatohepatitis (MASH); Ulcerative pancolitis without complication Discharge Disposition: Home Social History Tobacco Use Types Packs/Day Years Used Date Smoking Tobacco: Never Smokeless Tobacco: Never Alcohol Use Standard Drinks/Week Comments Yes 0 (1 standard drink = 0.6 oz pure alcohol) once every couple of months or less [facility] Utilities Answer Date Recorded In the past 12 months has th e electric, gas, oil, or water [employer] threatened to shut off services in your [...] by mouth daily. SUMAtriptan (IMITREX) 20 mg/actuation [place], Non-Aerosol 1 spray as needed. 11/03/2017 metFORMIN [...] AM EST Hospital Encounter Non-[place] [phone] Arrived 11/12/2024 8:00 AM EST Appointment Mammography/DXA at [place] [phone] Gabe Fong MD [facility] [place] [address] 11/30/2024 2:30 PM EDT Office [place] [address] Gabe Fong MD [facility] [place] [address] 12/07/2024 2:30 PM EDT TH Visit (TeleHealth) Gastroenterology at [place] [phone] Rosemarie Morrow, SKIP [facility] [place] [address] documented as of this encounter Procedures Procedure Name Priority Date/Time Associated Diagnosis Comments MRI CHOLANGIOPANCREATOGRAPHY WWO CONTRAST Routine 08/20/2024 10:43 AM EST Abnormal liver function test Metabolic dysfunction-associa barrett steatohepatitis (MASH) Ulcerative pancolitis without complication documented in this encounter Results * MRI Cholangiopancreatography wwo Contrast (08/20/2024 10:43 AM EST) WORKSTATION ID [id number] RAD Anatomical Region Laterality Modality Magnetic Resonan [...] Barbosa et al. in Journal of the [place] College [employer], Volume 14, Issue 7, Pages 911 to 926. LI-RADS Categories: LR-TIV = Tumor in vein [...] criteria and documentation are available online at https://www.acr.org/Clinical-Resources/[email or web address]-[email or web address]-Systems/LI-RADS. This report utilizes LI-RADS version 2018. Thank you for letting us participate in the care of this patient. ??If you are a health care provider and have any questions regarding this report, please contact the number below. ??For patients who have questions please contact the health childcare administrator that requested your imaging first. ? Electronically signed by: Glenn Melton DO, [facility] ([phone]), at 08/21/2024 7:35 AM Narrative 08/21/2024 7:35 AM EST EXAMINATION: MRI CHOLANGIOPANCREATOGRAPHY WWO CONTRAST ? CLINICAL HISTORY: pt with kamlesh OVALLES, F2 on biopsy in 2009, F0-1 on Fribroscan in 2020, increase in liver enzymes, hx [...] similar prior examination provided for comparison. FINDINGS: Loom Technician Images: Noncontributory. Lower chest: There is susceptibility [...] with kamlesh OVALLES, F2 on biopsy in 2010, F0-1 onFribroscan in 2020, increase in liver enzymes, hx of UC, ?PSC R79.89, Other specified abnormal findings of blood chemistry - K75.81, Nonalcoholic steatohepatitis (MÉNDEZ) - K51.00, Ulcerative (chronic)pancolitis without complications TECHNIQUE: MRI of the abdomen prior to and following the intravenous administration of 16mL Dotarem. Noncontrast MRCP was performed. 3D MIPSwere created. COMPARISON: There is no similar prior examination provided forcomparison. FINDINGS: Loom Technician Images: Noncontributory. Lower chest: There is susceptibility [...] Volume 14, Issue 7, Pages 911 to 990. LI-RADS Categories: LR-TIV = Tumor in vein [...] criteria and documentation are available online at https://www.acr.org/Clinical-Resources/Ocrpasqva-ofc-Romk-Systems/LI-RADS.This report utilizes LI-RADS version 2018. Thank you for letting us participate in the care of this patient. If youare a health care provider and have any questions regarding this report,please contact the number below. For patients who have questions please contactthe health childcare administrator that requested your imaging first. Clau Cruz MD IMG MRI ORDERABLES documented in this encounter Visit Diagnoses Diagnosis Abnormal liver function test Other abnormal blood chemistry Metabolic dysfunction-associated steatohepatitis (MASH) Ulcerative pancolitis without complication documented in this encounter Administered Medications Inactive Administered Medications - up to 3 most recent administrations Medication Order MAR Action Action Date Dose Rate Site gadoterate meglumine (Dotarem) (0.5 mMol/mL) injection solution 0-100 mL 0-100 mL, Intravenous, ONCE PRN, 1 dose, Starting on Fri08/20/24 at 1024, Until Fri08/20/24 at 1024, Per Protocol, Radiology Contrast, Routine Given 08/20/2024 10:24 AM EST 16 mLs documented in this encounter Care Teams Director Underwriter Sales Relationship Specialty Start Date End Date Marcio Devlin DO [address] [place] [place] [address] PCP - General Family Medicine 11/11/17 documented as of this encounter
--- OUTSIDE RECORDS SUMMARY | 2024-10-04 16:02 | XMS_ITS | Encounter Summary ---
Author Organization [facility] [place] [address] Care Team Providers Care Stem Processing Machine Operator Name Role Phone Marico Devlin DO Primary Care Provider [phone] Reason for Referral * Diagnostic Test (Routine) - Denied Specialty Diagnoses / Procedures Referred By [facility] Referred To Contact Radiology Diagnoses Abnormal liver function test Metabolic dysfunction-associated steatohepatitis (MASH) Ulcerative pancolitis without complication Procedures MRI Elastography wo Contrast Clau Cruz MD [facility] [place] [address] [place] [address] Referral ID Status Reason Start Date Expiration Date V isits Requested Visits Authorized [id number] Denied Specialty Service Requested 07/09/2024 01/07/2026 1 0 Reason for Visit * Diagnostic Test (Routine) - Denied Specialty Diagnoses / Procedures [facility] Referred To Contact Radiology Diagnoses Abnormal liver function test Metabolic dysfunction-associated steatohepatitis (MASH) Ulcerative pancolitis without complication Procedures MRI Elastography wo Contrast Clau Cruz MD [facility] [place] [address] [facility] Rad Mri [facility] [place] [address] Referral ID Status Reason Start Date Expiration Date V isits Requested Visits Authorized [id number] Denied Specialty Service Requested 07/09/2024 01/07/2026 1 0 Encounter Details Date Type Department Care Team (Latest Contact Info) Description 08/17/2024 1:35 PM [facility] Hospital Encounter MRI at [facility] [place] [address] Clau Cruz MD [facility] [place] [address] Abnormal liver function test; Metabolic [...] the past 12 months has th e [employer], gas, oil, or water [employer] threatened to shut off services in your [...] by mouth daily. SUMAtriptan (IMITREX) 20 mg/actuation [place], Non-Aerosol 1 spray as needed. 11/03/2017 metFORMIN [...] AM EST Hospital Encounter Non-Invasive Cardiology Lab [address] Arrived 11/12/2024 8:00 AM EST Appointment Mammography/DXA at [place] [phone] Gabe Fong MD [facility] [address] [address] 11/30/2024 2:30 PM EDT Office [place] [address] Gabe oFng MD [facility] [address] [place] [address] 12/07/2024 2:30 PM EDT TH Visit (TeleHealth) Gastroenterology at [place] [phone] Rosemarie Morrow, SKIP [facility] [place] [address] documented as of this encounter Procedures Procedure Name Priority Date/Time Associated Diagnosis Comments MRI ELASTOGRAPHY Routine 08/17/2024 5:05 PM EST Abnormal liver function test Metabolic dysfunction-associated steatohepatitis (MASH) Ulcerative pancolitis without complication documented in this encounter Results * MRI Elastography wo Contrast (08/17/2024 5:05 PM EST) SMART WORKSTATION ID [id number] RAD Anatomical Region Laterality Modality Abdomen Right [...] have questions please contact the health child day care teacher that requested your imaging first. [...] who have questions please contactthe health child day care teacher that requested your imaging first. Clau Cruz MD IMG MRI ORDERABLES documented in this encounter Visit Diagnoses Diagnosis Abnormal liver function test Other abnormal blood chemistry Metabolic dysfunction-associated steatohepatitis (MASH) Ulcerative pancolitis without complication documented in this encounter Care Teams Stem Processing Machine Operator Relationship Specialty Start Date End Date Marcio Devlin DO [address] [place] [address] PCP - General Family Medicine 11/11/17 documented as of this encounter
--- OUTSIDE RECORDS SUMMARY | 2024-10-04 16:03 | XMS_ITS | Encounter Summary ---
Author Organization [facility] [place] [address] Care Team Providers Care Shore Man Name Role Phone Marcio Devlin DO Primary Care Provider Encounter Details Date Type Department Care Team (Late st Contact Info) Description 11/19/2023 Notes [place] [address] Rosemarie Morrow, SKIP [facility] [place] [address] Social History Tobacco Use Types Packs/Day Years Used Date Smoking Tobacco: Never Smokeless Tobacco: Never Alcohol Use Standard Drinks/Week Comments Yes 0 (1 standard drink = 0.6 oz pure alcohol) once every couple of months or less [facility] Utilities Answer Date Recorded In the past 12 months has [employer] electric, gas, oil, or water company threatened [...] Hospital Encounter Non-Invasive Cardiology Lab [place] [phone] Arrived 11/12/2024 8:00 AM EST Appointment Mammography/[place] [address] Gabe Fong MD [facility] [place] [address] 11/30/2024 2:30 PM EDT [place] [address] Gabe Fong MD [facility] [place] [address] 12/07/2024 2:30 PM EDT TH Visit (TeleHealth) [place] [address] Rosemarie Morrow APRN [facility] [place] [address] documented as of this encounter Visit Diagnoses Not on filedocumented in this encounter Care Teams Shore Man Relationship Specialty Start Date End Date Marcio Devlin DO [address] [place] [address] PCP - General Family Medicine 11/11/17 documented as of this encounter
--- OUTSIDE RECORDS SUMMARY | 2024-10-04 16:03 | XMS_ITS | Encounter Summary ---
Author Organization [facility] [place] [address] Care Team Providers Care Internet Site Designer Name Role Phone Marcio Devlin DO Primary Care Provider [phone] Encounter Details Date Type Department Care Team (Latest Contact Info) Description 11/04/2023 Travel Social History Tobacco Use Types Packs/Day Years Used Date Smoking Tobacco: Never Smokeless Tobacco: Never Alcohol Use Standard Drinks/Week Comments Yes 0 (1 standard drink = 0.6 oz pure alcohol) once every couple of months or less [facility] Utilities Answer Date Recorded In the [...] in a jail (including now)? No 10/21/2023 IPV Inpatient Questions [...] AM EST Hospital Encounter Non[place] [phone] Arrived 11/12/2024 8:00 AM EST Appointment Mammography/[place] [address] Gabe Fong MD [facility] [place] [address] [place] [address] 11/30/2024 2:30 PM EDT Office [place] [address] Gabe Fong MD [facility] [place] [address] [place] [address] 12/07/2024 2:30 PM EDT TH Visit (TeleHealth) [place] [address] Rosemarie Morrow, SKIP [facility] [place] [address] documented as of this encounter Visit Diagnoses Not on filedocumented in this encounter Care Teams Internet Site Designer Relationship Specialty Start Date End Date Marcio Devlin DO [address] [place] [address] PCP - General Family Medicine 11/11/17 documented as of this encounter
--- OUTSIDE RECORDS SUMMARY | 2024-10-04 16:03 | XMS_ITS | Encounter Summary ---
Author Organization [facility] [place] [address] Care Team Providers Care Fish Roe Processor Name Role Phone Marcio Devlin DO Primary Care Provider [phone] Encounter Details Date Type Department Care Team (Latest Contact Info) Description 01/20/2024 10:00 AM EDT - 01/20/2024 11:59 PM EDT Hospital Encounter Non-Invasive [place] [address] Discharge Disposition: Home Social History Tobacco Use Types Packs/Day Years Used Date Smoking Tobacco: Never Smokeless Tobacco: Never Alcohol Use Standard Drinks/Week Comments Yes 0 (1 standard drink = 0.6 oz pure alcohol) once every couple of months or less [facility] Utilities Answer Date Recorded In the past 12 months has [employer], gas, oil, or water [employer] threatened to shut off services in [...] mouth daily. SUMAtriptan (IMITREX) 20 mg/actuation [place], Non-Aerosol 1 spray as needed. 11/03/2017 metFORMIN [...] mg tablet 1000MG, PO, Once daily 10/15/2010 amLODIPine (Norvasc) 2.5 mg tablet Take 1 tablet by mouth daily. 90 each 3 11/26/2023 07/02/2024 Rinvoq 15 mg ER 24 hr tablet TAKE 1 TABLET DAILY 30 tablet 3 10/27/2023 02/03/2024 documented as of this encounter Plan of Treatment Upcoming Encounters Date Type Department Care Team (Late st Contact Info) Description 10/16/2024 10:00 AM EST Hospital Encounter Non-Invasive [place] [address] Arrived 11/12/2024 8:00 AM EST Appointment Mammography/[place] [phone] Gabe Fong MD [facility] [place] [address] 11/30/2024 2:30 PM EDT Office [place] [address] Gabe Fong MD [facility] [place] [address] 12/07/2024 2:30 PM EDT TH Visit (TeleHealth) [place] [address] Rosemarie Morrow APRN [facility] [place] [address] documented as of this encounter Procedures Procedure [...] on filedocumented in this encounter Care Teams Fish Roe Processor Relationship Specialty Start Date End Date Marcio Devlin DO [address] [place] [address] PCP - General Family Medicine 11/11/17 documented as of this encounter
--- OUTSIDE RECORDS SUMMARY | 2024-10-04 16:03 | XMS_ITS | Encounter Summary ---
Author Organization [facility] [place] [address] Care Team Providers Care Fluorescent Solution Mixer Name Role Phone Marcio Devlin DO Primary Care Provider [phone] Reason for Referral * Diagnostic Test (Routine) - Closed Specialty Diagnoses / Procedures Referred By Contlyn t Referred To Contact Radiology Diagnoses Complete heart block Procedures MRI Cardiac Morphology Function Luis Alfredo Owens MD [facility] [place] [address] [place] [address] Referral ID Status Reason Start Date Expiration Date V isits Requested Visits Authorized [id number] Closed Specialty Service Requested 11/26/2023 05/28/2025 1 1 Reason for Visit * Diagnostic Test (Routine) - Closed Specialty Diagnoses / Procedures Referred By Contlyn t Referred To Contact Radiology Diagnoses Complete heart block Procedures MRI Cardiac Morphology Function Luis Alfredo Renee MD [facility] [place] [address] [place] [address] Referral ID Status Reason Start Date Expiration Date V isits Requested Visits Authorized [id number] Closed Specialty Service Requested 11/26/2023 05/28/2025 1 1 Encounter Details Date Type Department Care Team (Latest Contact Info) Description 04/29/2024 9:05 AM EDT - 04/29/2024 11:59 PM EDT Hospital Encounter MRI at [facility] [place] [phone] Luis Alfredo Velazquez MD [facility] [place] [address] Complete heart block Discharge Disposition: Home Social History Tobacco Use Types Packs/Day Years Used Date Smoking Tobacco: Never Smokeless Tobacco: Never Alcohol Use Standard Drinks/Week Comments Yes 0 (1 standard drink = 0.6 oz pure alcohol) once every couple of months or less [facility] Utilities Answer Date Recorded In the past 12 months has th e [employer], gas, oil, or water [employer] threatened to shut off services in your [...] unit Tablet Take by mouth daily. fexofenadine (DRARYN) 180 mg Tablet Take 180 mg by mouth daily. PROAIR HFA 90 mcg/actuation HFA Aerosol Inhaler as needed. 07/20/2018 topiramate 50 mg capsule,sprinkle,ER 24hr TAKE ONE CAPSULE BY MOUTH TWICE A DAY 3 08/25/2018 aspirin 81 mg Tablet, Delayed Release (E.C.) Take 81 mg by mouth daily. SUMAtriptan (IMITREX) 20 mg/actuation [place], Non-Aerosol 1 spray as needed. 11/03/2017 metFORMIN [...] TABLET DAILY 30 tablet 3 02/03/2024 05/26/2024 amLODIPine (Norvasc) 2.5 mg tablet Take 1 tablet by mouth daily. 90 each 3 11/26/2023 07/02/2024 documented as of this encounter Plan of Treatment Upcoming Encounters Date Type Department Care Team (Late st Contact Info) Description 10/16/2024 10:00 AM EST Hospital Encounter Non-Invasive Cardiology Lab [place] [phone] Arrived 11/12/2024 8:00 AM EST Appointment Mammography/DXA at [address] Gabe Fong MD [facility] [place] [place] [address] 11/30/2024 2:30 PM EDT Office Visit Rheumatology at [place] [phone] Gabe Fnog MD [facility] [place] [address] 12/07/2024 2:30 PM EDT TH Visit (TeleHealth) Gastroenterology at [place] [phone] Rosemarie Morrow APRN [facility] [place] [address] documented as of this encounter Procedures Procedure Name Priority Date/Time Associated Diagnosis Comments MRI CARDIAC MORPHOLOGY FUNCTION WWO CONTRAST Routine 04/29/2024 11:51 AM EDT Complete heart block documented in this encounter Results * MRI Cardiac Morphology Function wwo Contrast (04/29/2024 11:51 AM EDT) WORKSTATION ID [id number] [facility] Anatomical Region Laterality Modality Magnetic [...] questions please contact the health child care centre manager that requested your imaging first. ? Electronically signed by: Shalonda Mccain MD, [facility] ([phone]), at 05/03/2024 10:01 PM Narrative 05/03/2024 10:01 [...] have questions please contactthe health child care centre manager that requested your imaging first. Electronically signed by: Shalonda Mccain MD, [facility] ([phone]), at 05/03/2024 10:01 PM Luis Alfredo Velazquez MD IM MRI ORDERAB LES documented in this encounter [...] on Lorna 04/29/24 at 1133, Until Lorna 8/15/24 at 1133, Per Protocol, Radiology Contrast, Routine Given 04/29/2024 11:33 AM EDT 32 mLs documented in this encounter Care Teams Fluorescent Solution Mixer Relationship Specialty Start Date End Date Marcio Devlin DO [address] [place] [address] PCP - General Family Medicine 11/11/17 documented as of this encounter
--- OUTSIDE RECORDS SUMMARY | 2024-10-04 16:03 | XMS_ITS | Encounter Summary ---
Author Organization [facility] [place] [address] Care Team Providers Care Patient Services Rep Name Role Phone Marcio Devlin DO Primary Care Provider [phone] Encounter Details Date Type Department Care Team (Latest Contact Info) Description 11/11/2023 11:00 AM EST TH Visit (TeleHealth) [place] [address] Rosemarie Morrow, FILTER PRESS TENDER HEAD [facility] [place] [address] Ulcerative pancolitis with complication Social History Tobacco Use Types Packs/Day Years Used Date Smoking Tobacco: Never Smokeless Tobacco: Never Alcohol Use Standard Drinks/Week Comments Yes 0 (1 standard drink = 0.6 oz pure alcohol) once every couple of months or less [facility] Utilities Answer Date Recorded In [...] this encounter Progress Notes * Rosemarie Morrow, FILTER PRESS TENDER HEAD - 11/11/2023 11:00 AM EST [facility] Gastroenterology Telehealth Visit Primary care provider: [...] 09/19/08 (Dr. Shady Luz at [facility]) for surveillance for dysplasia. Areas [...] 2020 - severe involvement of L colon, bhjo-xi-qmfoepdu involvement of transverse and R colon. Worse compared to last exam. SSA at hepatic flexure Adalimumab level (cote) was 12.7 Switched to Stelara ( 03/21/21, first infusion dose) d/t Lost of response to Humira. Stopped Uceris and sulfasalazine in January 2021. [place] 09/2022 - tubular featureless L colon with [...] (Bezet) 10/20/2023 418 ms Final Calculated P [place] 10/20/2023 -12 degrees Final Calculated R [place] 10/20/2023 2 degrees Final Calculated T [place] 10/20/2023 32 degrees Final INTERPRETATION 10/20/2023 Final Value:Sinus rhythm with complete heart block and Junctional bradycardia Abnormal ECG No previous ECGs available Confirmed by MD ILA, JASE ([id number]) on 10/20/2023 10:15:01 AM Admission on 09/18/2023, Discharged on 09/18/2023 Component Date Value Ref Range Status COLONOSCOPY 09/18/2023 Final Value:[facility] Endoscopy Procedure Date: 09/18/2023 3:57 PM Patient Name: Kim Funes Date of : 1960 Age: 63 Order #: [id number] Instrument Name: [id number] Procedure: Colonoscopy Indications: Disease activity assessment of [...] bowel preparation was evaluated using the BBPS (Baxter Bowel Preparation Scale) with scores of: Right [...] Rinvoq. - Please have labs checked at [facility]. - Await pathology results. Attending Participation: I personally performed the entire procedure. L. Jose Rachel MD 09/18/2023 5:05:33 PM Number of Addenda: 0 Note Initiated On: 09/18/2023 3:57 PM Surgical Pathology Report 09/18/2023 Final Value:[id number] Location: 4T; [facility]; A The signing pathologist has [...] MD Verified: 09/26/2023 15:23 Pathologist Performed at: -[facility] Dept. of Pathology, [facility] [place] [address] Cable Spooler: Dg Brown MD, FCAP, CLIA Certificate: [id number] SPECIMEN(S) SUBMITTED A - nondirected right colon [...] Check LFTs, Mg and lipids panel ( [place]) - Continue lab surveillance while on Rinvoq [...] Disease Center Section of Gastroenterology [place] [address] documented in this encounter Plan of Treatment Upcoming Encounters Date Type Department Care Team (Late st Contact Info) Description 10/16/2024 10:00 AM EST Hospital Encounter Non-[place] [address] Arrived 11/12/2024 8:00 AM EST Appointment Mammography/[place] [address] Gabe Fong MD [facility] [place] [address] 11/30/2024 2:30 PM EDT Office [place] [phone] Gabe Fong MD [facility] [place] [address] 12/07/2024 2:30 PM EDT TH Visit (TeleHealth) [place] [address] Rosemarie Morrow APRN [facility] [place] [address] documented as of this encounter Visit Diagnoses Diagnosis Ulcerative pancolitis with complication documented in this encounter Care Teams Patient Services Rep Relationship Specialty Start Date End Date Marcio Devlin DO [address] [place] [address] PCP - General Family Medicine 11/11/17 documented as of this encounter
--- OUTSIDE RECORDS SUMMARY | 2024-10-04 16:03 | XMS_ITS | Encounter Summary ---
Author Organization [facility] [place] [address] Care Team Providers Care Nurse Informaticist Name Role Phone Marcio Devlin DO Primary Care Provider [phone] Reason for Referral * Diagnostic Test (Routine) - Closed Specialty Diagnoses / Procedures Referred By Missy escalera Referred To Contact Radiology Diagnoses Complete heart block Procedures MRI Cardiac Morphology Function wwo Contrast Leonidas Velazquez MD [facility] [place] [address] [facility] [place] [address] Referral ID Status Reason Start Date Expiration Date V isits Requested Visits Authorized [id number] Closed Specialty Service Requested 11/26/2023 05/28/2025 1 1 * Diagnostic Test (Routine) - Closed Specialty Diagnoses / Procedures Referred By Missy escalera Referred To Contact Cardiology Diagnoses Complete heart block Procedures Echocardiogram Transthoracic Leonidas Velazquez MD [facility] [place] [address] [facility] [place] [address] Referral ID Status Reason Start Date Expiration Date V isits Requested Visits Authorized [id number] Closed Specialty Service Requested 11/26/2023 11/25/2024 1 1 Encounter Details Date Type Department Care Team (Late st Contact Info) Description 11/26/2023 4:20 PM EDT Office Visit Cardiology at [address] [address] Leonidas Velazquez MD [facility] [place] [address] Complete heart block; Pacemaker; Other hyperlipidemia; Primary hypertension Social History Tobacco Use Types Packs/Day Years Used Date Smoking Tobacco: Never Smokeless Tobacco: Never Alcohol Use Standard Drinks/Week Comments Yes 0 (1 standard drink = 0.6 oz pure alcohol) once every couple of months or less [facility] Utilities Answer Date Recorded In the past 12 months has th e [employer], gas, oil, or water [employer] threatened to shut off services in your [...] were not included. [facility] [place] [address] [address] Cardiology Clinic Note Patient Name: Kim Perez : 1960 Visit Context: 63 y.o. female w/ PMH of ulcerative colitis, ankylosing spondylitis, pre diabetes, HTN and HLD who presented to [facility] for symptomatic bradycardia in the setting [...] 1 of 210 had complete heart block ([email or web address]). Having said she will still have some [...] BP is markedly elevated in clinic today. Wefunmilayoll start amlodipine 2.5 mg daily. This can be uptitrated by PCP. Goal blood pressure < 125/75 mm Hg at all times. Hyperlipidemia Assessment & Plan Note: Simvastatin was replaced by atorvastatin recently. Her PCP will follow-up on her lipid panel. Pacemaker Overview Note: Manager Fine Dining Model # Serial # Generator [employer] [id number] Atrial Lead [employer] [id number] Ventricular Lead [employer] [id number] Implanted on 10/21/23 for high grade AV [...] 09/19/08 (Dr. Shady Luz at [facility]) for surveillance for dysplasia. Areas [...] iritis Escalated to weekly Humira 11/2019. ADA (sheldahl) from 6 q 2wk to 12.7 qwk, as well as BID SSZ Colonoscopy Oct 2019: normal rectum, mod-severe inflammation and narrowing from 6-25 cm from the anus, normal remainder of colon. Path: mild active chronic colitis in ac/tc/dc/sc, severe active colitis with ulceration in proximal rectum Colonoscopy December 2020 - severe involvement of L colon, eolm-pa-tknfnvuu involvement of transverse and R colon. Worse compared to last exam. SSA at hepatic flexure Adalimumab level (sheldahl) was 12.7 Switched to Stelara ( 03/21/21, first infusion dose) d/t Lost of response to Humira. Stopped Uceris and sulfasalazine in January 2021. 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 She lives with her son and grandson. [...] of the staff and students at the [employer] had respiratory and gastrointestinal illnesses. On Friday [...] son, , grandson and fiance - Occupation: [employer] at [employer] - Activity level: no trouble going up and down basement stairs - Tobacco: none - EtOH: very rare - Other: no MJ Family Hx: - Mother: at 67 of hep C, mild heart attack - Father: at 72, lung cancer - Sibilings: sister with DC at age 64 - Children: daughter without [...] mg, Oral, DAILY SUMAtriptan (IMITREX) 20 mg/actuation [place], Non-Aerosol 1 spray, PRN topiramate 50 mg [...] studies Leonidas Velazquez MD, MS, FACC Attending Commissioning Editor [facility] Wind Field Manager [facility] [employer] documented in this encounter [...] 1 of 210 had complete heart block ([email or web address]/237). Having said she will still have some [...] AM EST Hospital Encounter Non-Invasive Cardiology Lab [place] [phone] Arrived 11/12/2024 8:00 AM EST Appointment Mammography/[place] [address] Gabe Fong MD [facility] [place] [address] 11/30/2024 2:30 PM EDT Office Visit Rheumatology at [place] [phone] Gabe Fong MD [facility] [place] [address] 12/07/2024 2:30 PM EDT TH Visit (TeleHealth) Gastroenterology at [place] [phone] Rosemarie Morrow APRN [facility] [place] [place] [address] documented as of this encounter Results * ECHO COMPLETE (07/02/2024 2:47 PM EDT) Anatomical Region Laterality Modality Cardiac Other 07/02/2024 2:00 PM EDT Narrative 07/02/2024 3:40 PM EDT 1 [place] [address] ? Echocardiogram Report Name: KIM PEREZ ? Study Date: 07/02/2024 02:00 PMBP: 148/54 mmHg ? HR: 76 : 1960 ? Height: 166 cm ? Account: [id number] Age: 64 yrs ? Weight: 81 kg Gender: Female ?BSA: 1.9 m2 Ordering Physician: Leonidas Velazquez MD Referring Physician: Leonidas Velazquez MD Performed By: Ruchi Asher RDCS Reason For Study: Complete heart block Exam Location: [facility]. Interpretation Summary Left ventricular size and systolic function is normal. The left ventricular ejection fraction is 63% by Elliott's biplane. There are no segmental wall motion abnormalities. Right ventricular systolic function is normal. No significant valvular disease. No significant change from prior. Procedure Complete-[id number]. Satisfactory quality. Left Ventricle Left ventricle is [...] Note Elle Lin MD - 07/02/2024 1 [place] [address] Echocardiogram Report Name: KIM PEREZ Study Date: 402:00 PMBP: 148/54 mmHg HR: 76 : 1960 Height: 166 cm Account: [id number] Age: 64 yrs Weight: 81 kg Gender: Female BSA: 1.9 m2 Ordering Physician: Leonidas Velazquez MD Referring Physician: Leonidas Velazquez MD Performed By: Ruchi Asher RDCS Reason For Study: Complete heart block Exam Location: [facility]. Interpretation Summary Left ventricular size and systolic function is normal. The leftventricular ejection fraction is 63% by Elliott's biplane. There are no segmental wallmotion abnormalities. Right ventricular systolic function is normal. No significant valvular disease. No significant change from prior. Procedure Complete-[id number]. Satisfactory quality. Left Ventricle Left ventricle is [...] LVOT max Velocity: 116.2 cm/sec Ao Max Sohma: 150.6 cm/sec Ao valve max: 9.1 mmHg [...] Dyskinetic 3-5moderate 5 - 6-14large Aneurysmal 15-16diffuse Leonidas Velazquez MD ECHO ORDERABLES * MRI Cardiac Morphology Function wwo Contrast (04/29/2024 11:51 AM EDT) WORKSTATION ID [id number] [facility] Anatomical Region Laterality Modality Magnetic Resonan ce [...] have questions please contact the health healthcare project manager that requested your imaging first. ? Electronically signed by: Shalonda Mccain MD, [facility] ([phone]), at 05/03/2024 10:01 PM Narrative 05/03/2024 10:01 [...] who have questions please contactthe health healthcare project manager that requested your imaging first. Electronically signed by: Shalonda Mccain MD, [facility] ([phone]), at 05/03/2024 10:01 PM Leonidas Velazquez MD IMG MRI ORDERAB LES documented in this encounter Visit Diagnoses Diagnosis Complete heart block Atrioventricular block, complete Pacemaker Cardiac pacemaker in situ Other hyperlipidemia Primary hypertension Unspecified essential hypertension Complete heart block Atrioventricular block, complete Complete heart block Atrioventricular block, complete documented in this encounter Care Teams Nurse Informaticist Relationship Specialty Start Date End Date Marcio Devlin DO [address] [place] [address] PCP - General Family Medicine 11/11/17 documented as of this encounter
--- OUTSIDE RECORDS SUMMARY | 2024-10-04 16:03 | XMS_ITS | Encounter Summary ---
Author Organization [facility] [place] [address] Care Team Providers Care Chemistry Instructor Name Role Phone Marcio Devlin DO Primary Care Provider [phone] Encounter Details Date Type Department Care Team (Latest Contact Info) Description 04/19/2024 10:00 AM EDT - 04/19/2024 11:59 PM EDT Hospital Encounter Non-Invasive [place] [address] Discharge Disposition: Home Social History Tobacco Use Types Packs/Day Years Used Date Smoking Tobacco: Never Smokeless Tobacco: Never Alcohol Use Standard Drinks/Week Comments Yes 0 (1 standard drink = 0.6 oz pure alcohol) once every couple of months or less [facility] Utilities Answer Date Recorded In the past 12 months has [employer], gas, oil, or water [employer] threatened to shut off services in your [...] by mouth daily. SUMAtriptan (IMITREX) 20 mg/actuation [place], Non-Aerosol 1 spray as needed. 11/03/2017 metFORMIN [...] AM EST Hospital Encounter Non-Invasive [place] [address] Arrived 11/12/2024 8:00 AM EST Appointment Mammography/[place] [address] Gabe Fong MD [facility] [place] [address] 11/30/2024 2:30 PM EDT Office [place] [address] Gabe Fong MD [facility] [place] [address] 12/07/2024 2:30 PM EDT TH Visit (TeleHealth) [place] [address] Rosemarie Morrow APRN [facility] [place] [address] documented as of this encounter Procedures Procedure [...] on filedocumented in this encounter Care Teams Chemistry Instructor Relationship Specialty Start Date End Date Marcio Devlin DO [address] [place] [address] PCP - General Family Medicine 11/11/17 documented as of this encounter
--- OUTSIDE RECORDS SUMMARY | 2024-10-04 16:03 | XMS_ITS | Encounter Summary ---
Author Organization [facility] [place] [address] Care Team Providers Care Blower Blast Furnace Name Role Phone Marcio Devlin DO Primary Care Provider [phone] Encounter Details Date Type Department Care Team (Latest Contact Info) Description 11/26/2023 Travel Social History Tobacco Use Types Packs/Day Years Used Date Smoking Tobacco: Never Smokeless Tobacco: Never Alcohol Use Standard Drinks/Week Comments Yes 0 (1 standard drink = 0.6 oz pure alcohol) once every couple of months or less [facility] Utilities Answer Date Recorded In [...] AM EST Hospital Encounter Non-[place] [address] Arrived 11/12/2024 8:00 AM EST Appointment Mammography/[place] [address] Gabe Fong MD [facility] [address] [place] [address] 11/30/2024 2:30 PM EDT Office [place] [address] Gabe Fong MD [facility] [address] [address] 12/07/2024 2:30 PM EDT TH Visit (TeleHealth) [place] [address] Rosemarie Morrow, SKIP [facility] [place] [address] documented as of this encounter Visit Diagnoses Not on filedocumented in this encounter Care Teams Blower Blast Furnace Relationship Specialty Start Date End Date Marcio Devlin DO [address] [place] [address] PCP - General Family Medicine 11/11/17 documented as of this encounter
--- OUTSIDE RECORDS SUMMARY | 2024-10-04 16:03 | XMS_ITS | Encounter Summary ---
Author Organization [facility] [place] [address] Care Team Providers Care Architectural Drafter Name Role Phone Marcio Devlin DO Primary Care Provider [phone] Encounter Details Date Type Department Care Team (Latest Contact Info) Description 04/29/2024 Travel Social History Tobacco Use Types Packs/Day Years Used Date Smoking Tobacco: Never Smokeless Tobacco: Never Alcohol Use Standard Drinks/Week Comments Yes 0 (1 standard drink = 0.6 oz pure alcohol) once every couple of months or less [facility] Utilities Answer Date Recorded In the past [...] AM EST Hospital Encounter Non-[place] [address] Arrived 11/12/2024 8:00 AM EST Appointment Mammography/[place] [address] Gabe Fong MD [facility] [address] [address] 11/30/2024 2:30 PM EDT Office [place] [address] Gabe Fong MD [facility] [address] [place] [address] 12/07/2024 2:30 PM EDT TH Visit (TeleHealth) [place] [address] Rosemarie Morrow, SKIP [facility] [place] [address] documented as of this encounter Visit Diagnoses Not on filedocumented in this encounter Care Teams Architectural Drafter Relationship Specialty Start Date End Date Marcio Devlin DO [address] [place] [address] PCP - General Family Medicine 11/11/17 documented as of this encounter
--- OUTSIDE RECORDS SUMMARY | 2024-10-04 16:03 | XMS_ITS | Encounter Summary ---
Author Organization [facility] Address [facility] [place] [address] Care Team Providers Care Distribution Dispatcher Name Role Phone Marcio Devlin DO Primary Care Provider [phone] Encounter Details Date Type Department Care Team (Late st Contact Info) Description 11/04/2023 1:00 PM EST Office Visit Cardiology at [address] [phone] Lorri Mckinney PA [facility] [place] [address] Pacemaker [Z95.0] Social History Tobacco Use Types Packs/Day Years Used Date Smoking Tobacco: Never Smokeless Tobacco: Never Alcohol Use Standard Drinks/Week Comments Yes 0 (1 standard drink = 0.6 oz pure alcohol) once every couple of months or less [facility] Utilities Answer Date Recorded In the past 12 months has [employer] electric, gas, oil, or water company threatened [...] Cardiac Electrophysiology Post-Implant Device Interrogation Kim Funes [id number] 11/04/2023 History: Kim Funes is a 63 y.o. 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 Lives in [facility] with her , Lucien. 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 Physical Exam: Vitals: 11/04/23 1245 BP: 174/73 [...] prior studies for comparison. Device Interrogation: Data Sonoscope Operator Model # Serial # Generator [id number] Atrial Lead [employer] [id number] Ventricular Lead [employer] [id number] Diagnostics Pacing Mode: DDD at LRL 60 bpm Presenting EGMs: /RESULTS ENGINEER Underlying Rhythm: sinus rhythm in the 60s without intrinsic ventricular conduction >30 bpm Atrial Episodes: 0 Ventricular Episodes: 0 Atrial Pacin% Ventricular Pacin% Battery and Leads Voltage: not reported Status: 10.5 yrs (after programming) Magnet Rate: 100 bpm Charge Time: N/A Impedances (ohms) Sensing (mV) Thresholds HV RA RV LV RA RV LV RA RV LV N/A 558 718 N/A 5.0 RESULTS ENGINEER N/A 0.9V @ 0.4ms 0.4V @ 0.4ms N/A Assessment: 63 y.o. 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 Recommend general cardiology follow-up per Discharge Summary YURIY Alberto 11/04/2023 Pager: [phone] documented in this encounter Plan of Treatment Upcoming Encounters Date Type Department Care Team (Late st Contact Info) Description 10/16/2024 10:00 AM EST Hospital Encounter Non-Invasive [place] [address] Arrived 11/12/2024 8:00 AM EST Appointment Mammography/[place] [address] Gabe Fong MD [facility] [address] [place] [address] 11/30/2024 2:30 PM EDT Office [place] [address] Gabe Fong MD [facility] [address] [place] [address] 12/07/2024 2:30 PM EDT TH Visit (TeleHealth) Gastroenterology at [place] [phone] Rosemarie Morrow APRN [facility] [place] [address] documented as of this encounter Visit Diagnoses Diagnosis Pacemaker [Z95.0] Cardiac pacemaker in situ documented in this encounter Care Teams Distribution Dispatcher Relationship Specialty Start Date End Date Marcio Devlin DO [facility] [place] [address] [place] [address] PCP - General Family Medicine 11/11/17 documented as of this encounter
--- OUTSIDE RECORDS SUMMARY | 2024-10-04 16:03 | XMS_ITS | Encounter Summary ---
Author Organization [place] [address] Care Team Providers Care Sourcing Manager Name Role Phone Marcio Devlin DO Primary Care Provider [phone] Reason for Visit * Reason Onset Date Comments Other 10/22/2023 Implanted Cardia c Device Education Encounter Details Date Type Department Care Team (Late st Contact Info) Description 10/22/2023 Notes Only Cardiology at [address] [address] Rafaela Dillon Other (Implanted Cardiac Device Education) Social History Tobacco Use Types Packs/Day Years Used Date Smoking Tobacco: Never Smokeless Tobacco: Never Alcohol Use Standard Drinks/Week Comments Yes 0 (1 standard drink = 0.6 oz pure alcohol) once every couple of months or less [facility] Utilities Answer Date Recorded In the past 12 months has Schmoozer, gas, oil, or water [employer] threatened to shut off services in your [...] to call the Cardiac Device Clinic at [phone] with any questions. Plan: Post op check: 11/04/23 91 day check: will be scheduled by [facility] Remote monitor: Latitude home monitor provided to patient today. Monitor set up demonstrated. Patient instructed to connect monitor and send manual transmission when they arrive home. Rafaela Dillon 10/22/23 documented in this encounter Plan of Treatment Upcoming Encounters Date Type Department Care Team (Late st Contact Info) Description 10/16/2024 10:00 AM EST Hospital Encounter Non-Invasive Cardiology Lab [place] [phone] Arrived 11/12/2024 8:00 AM EST Appointment Mammography/DXA at [address] Gabe Fong MD [facility] [place] [address] 11/30/2024 2:30 PM EDT Office Visit Rheumatology at [address] Gabe Fong MD [facility] [place] [address] 12/07/2024 2:30 PM EDT TH Visit (TeleHealth) [place] [address] Rosemarie Morrow APRN [facility] [place] [address] documented as of this encounter Visit Diagnoses Not on filedocumented in this encounter Care Teams Sourcing Manager Relationship Specialty Start Date End Date Marcio Devlin DO [address] [place] [address] PCP - General Family Medicine 11/11/17 documented as of this encounter
--- OUTSIDE RECORDS SUMMARY | 2024-10-04 16:03 | XMS_ITS | Encounter Summary ---
Author Organization [facility] [place] [address] Care Team Providers Care Radiator Cleaner Name Role Phone Marcio Devlin DO Primary Care Provider [phone] Encounter Details Date Type Department Care Team (Late st Contact Info) Description 07/02/2024 4:40 PM EDT Office Visit Cardiology at [address] [phone] Luis Alfredo Velazquez MD [facility] [place] [address] Complete heart block; Primary hypertension; Other hyperlipidemia; Ulcerative pancolitis with other complication Social History Tobacco Use Types Packs/Day [...] Time Taken Comments Blood Pressure 138/86 07/02/2024 4:39 PM EDT Pulse 86 07/02/2024 4:39 PM EDT Temperature - - Respiratory Rate - - Oxygen Saturation 99% 07/02/2024 4:39 PM EDT Inhaled Oxygen Concentration - - Weight 85.7 kg (189 lb) 07/02/2024 4:39 PM EDT Height 166.4 cm (5' 5.51) 07/02/2024 4:39 PM ED T Body Mass Index 30.96 07/02/2024 4:39 PM EDT documented in this encounter Patient Instructions * Patient Instructions* Luis Alfredo Velazquez MD - 07/02/2024 4:40 PM EDT Follow up in one year documented in this encounter Progress Notes * Luis Alfredo Velazquez MD - 07/02/2024 4:40 PM EDT Images from the original note were not included. Formerly [facility] [place] [address] Cardiology Clinic Note Patient Name: Kim Funes : 1960 Visit Context: 63 y.o. female w/ PMH of ulcerative colitis, ankylosing spondylitis, pre diabetes, HTN and HLD who presented to [facility] for symptomatic bradycardia in the setting of complete heart block, s/p PPM. Visit Summary: Follow up in one year Assessment and Plan: Patient Active Problem List Diagnosis Complete heart block Overview Note: 10/20 p/w fatigue, s/p A/V sequential PPM 05/08 no evidence of infiltrative disease on cardiac mri 07/08 preserved biventricular systolic function Assessment & Plan Note: Her device will be continued followed in her device clinic. Hypertension Overview Note: Assessment & Plan Note: Blood pressure is under better control with maximum dose amlodipine. Hyperlipidemia Assessment & Plan Note: 04/07 LDL 73 HDL 59 TG 153 TC 162 She is tolerating her atorvastatin without issues. Pacemaker Overview Note: Retail Loss Prevention Officer Model # Serial # Generator [employer] [id number] Atrial Lead [employer] [id number] Ventricular Lead [employer] [id number] 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 Prediabetes Presence of left artificial hip joint [...] disease Colonoscopy 09/19/08 (Dr. Shady Luz at [facility]) for surveillance for dysplasia. Areas of [...] 2020 - severe involvement of L colon, [id number] involvement of transverse and R colon. Worse compared to last exam. SSA at hepatic flexure Adalimumab level (garcía) was 12.7 Switched to Stelara ( 03/21/21, first infusion dose) d/t Lost of response to Humira. Stopped Uceris and sulfasalazine in January 2021. Meredith 09/2022 - tubular featureless L colon with slightly diminished vascular pattern. Histology withmild colitis in sigmoid and inactive in descending. SSA in hep flex. Meredith 09/2023 - In remission - altered architecture, as above. No dysplasia on histology. Assessment & Plan Note: She reports her symptoms been under control. Non-alcoholic fatty liver disease Hypomagnesemia Adalimumab (Humira) long-term use [employer] Overview Note: As described in 2005 anesthesia record in [facility]. 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 I had last seen her in 12/06 and we had added amlodipine 2.5 mg. She was scheduled to see EP. She also had a cardiac MRI ordered and an echocardiogram. Echocardiogram today showed normal biventricular systolic function without any valvular disease. Cardiac MRI in April showed no scar or LGE. There was overall no indication of infiltrative disease. She will be having a report liver u/s as transminases are rising. She dose have a history of MÉNDEZ. She is accompanied again by her over doing well. Discharge by chest pain syncope syncope. She is tolerating her current medications. Social Hx: - Residence: lives with son, , grandson and fiance - Occupation: [employer] at [employer] - Activity level: no trouble going up and down basement stairs - Tobacco: none - EtOH: very rare - Other: no MJ Family Hx: - Mother: at 67 of hep C, mild heart attack - Father: at 72, lung cancer - Sibilings: sister with [place] at age 64 - Children: daughter without heart disease Objective: Meds: Current Outpatient Medications Medication Instructions amLODIPine (NORVASC) 10 mg, Oral, DAILY ascorbic acid (VITAMIN C) [...] fatty acids (FISH OIL) 2 g, Oral, 2 TIMES DAILY folic acid (FOLVITE) 1 mg tablet [...] mg, Oral, DAILY SUMAtriptan (IMITREX) 20 mg/actuation [place], Non-Aerosol 1 spray, PRN topiramate 50 mg capsule,sprinkle,ER 24hr TAKE ONE CAPSULE BY MOUTH TWICE A DAY Vitals: BP 138/86 Pulse 86 Ht 166.4 cm (5' 5.51) Wt 85.7 kg (189 lb) SpO2 99% BMI 30.96 kg/m?? Wt Readings from Last 3 Encounters: 07/02/24 85.7 kg (189 lb) 07/02/24 85.7 kg (189 lb) 01/06/24 80.7 kg (178 lb) Examination: CONST: Pleasant, Well-appearing NEURO: Oriented x3; [...] CALCIUM 9.1 10/22/2023 ESTGFR 56 (L) 10/22/2023 EKG: Diagnostic Studies: 07/02/24 Left ventricular size and systolic function is normal. The left ventricular ejection fraction is 63% by Elliott's biplane. There are no segmental wall motion abnormalities. Right ventricular systolic function is normal. No significant valvular disease. No significant change from prior. I have personally reviewed the above ECG & imaging studies Luis Alfredo Velazquez MD, MS, FACC Attending Mill Operator [facility] Bark Grinder [facility] documented in this encounter Miscellaneous Notes * Assessment & Plan Note - Luis Alfredo Velazquez MD - 07/02/2024 5:03 PM EDT Associated Problem(s): Ulcerative colitis She reports her symptoms been under control. * Assessment & Plan Note - Luis Alfredo Velazquez MD - 07/02/2024 5:02 PM EDT Associated Problem(s): Complete heart block Her device will be continued followed in her device clinic. * Assessment & Plan Note - Luis Alfredo Velazquez MD - 07/02/2024 4:48 PM EDT Associated Problem(s): Hyperlipidemia 04/07 LDL 73 HDL 59 TG 153 TC 162 She is tolerating her atorvastatin without issues. * Assessment & Plan Note - Luis Alfredo Velazquez MD - 07/02/2024 4:47 PM EDT Associated Problem(s): Hypertension Blood pressure is under better control with maximum dose amlodipine. documented in this encounter Plan of Treatment Upcoming Encounters Date Type Department Care Team (Late st Contact Info) Description 10/16/2024 10:00 AM EST Hospital Encounter Non-[place]vasive [place] [address] Arrived 11/12/2024 8:00 AM EST Appointment Mammography/DXA at [place] [address] Gabe Fong MD [facility] [place] [address] 11/30/2024 2:30 PM EDT Office Visit Rheumatology at [place] [address] Gabe Fong MD [facility] [place] [address] 12/07/2024 2:30 PM EDT TH Visit (TeleHealth) Gastroenterology at [place] [phone] Rosemarie Morrow APRN [facility] [place] [address] documented as of this encounter Visit Diagnoses Diagnosis Complete heart block Atrioventricular block, complete Primary hypertension Unspecified essential hypertension Other hyperlipidemia Ulcerative pancolitis with other complication documented in this encounter Care Teams Radiator Cleaner Relationship Specialty Start Date End Date Marcio Devlin DO [address] [place] [id number] PCP - General Family Medicine 11/11/17 documented as of this encounter
--- OUTSIDE RECORDS SUMMARY | 2024-10-04 16:03 | XMS_ITS | Encounter Summary ---
Author Organization [facility] [place] [address] Care Team Providers Care Director Post Name Role Phone Marcio Devlin DO Primary Care Provider [phone] Encounter Details Date Type Department Care Team (Latest Contact Info) Description 01/04/2024 Travel Social History Tobacco Use Types Packs/Day Years Used Date Smoking Tobacco: Never Smokeless Tobacco: Never Alcohol Use Standard Drinks/Week Comments Yes 0 (1 standard drink = 0.6 oz pure alcohol) once every couple of months or less [facility] Utilities Answer Date Recorded In the [...] EST Hospital Encounter Non-Invasive [place] [phone] Arrived 11/12/2024 8:00 AM EST Appointment Mammography/[place] [address] Gabe Fong MD [facility] [address] [place] [address] 11/30/2024 2:30 PM EDT Office Visit [place] [address] Gabe Fong MD [facility] [address] [place] [address] 12/07/2024 2:30 PM EDT TH Visit (TeleHealth) [place] [address] Rosemarie Morrow, SKIP [facility] [place] [address] documented as of this encounter Visit Diagnoses Not on filedocumented in this encounter Care Teams Director Post Relationship Specialty Start Date End Date Marcio Devlin DO [address] [place] [address] PCP - General Family Medicine 11/11/17 documented as of this encounter
--- OUTSIDE RECORDS SUMMARY | 2024-10-04 16:03 | XMS_ITS | Encounter Summary ---
Author Organization [facility] [place] [address] Care Team Providers Care Lye Boiler Name Role Phone Marcio Devlin DO Primary Care Provider [phone] Reason for Visit * Diagnostic Test (Routine) - Closed Specialty Diagnoses / Procedures Referred By Missy escalera Referred To Contact Radiology Diagnoses Complete heart block Procedures MRI Cardiac Morphology Function wwo Contrast Luis Alfredo Velazquez MD [facility] [place] [address] [place] [address] Referral ID Status Reason Start Date Expiration Date V isits Requested Visits Authorized [id number] Closed Specialty Service Requested 11/26/2023 05/28/2025 1 1 Encounter Details Date Type Department Care Team (Latest Contact Info) Description 04/29/2024 9:05 AM EDT - 04/29/2024 11:59 PM EDT Hospital [place] [address] Luis Alfredo Velazquez MD [facility] [place] [address] Discharge Disposition: Home Social History Tobacco Use Types Packs/Day Years Used Date Smoking Tobacco: Never Smokeless Tobacco: Never Alcohol Use Standard Drinks/Week Comments Yes 0 (1 standard drink = 0.6 oz pure alcohol) once every couple of months or less [facility] Utilities Answer Date Recorded In [...] by mouth daily. SUMAtriptan (IMITREX) 20 mg/actuation [place], Non-Aerosol 1 spray as needed. 11/03/2017 metFORMIN [...] 11/26/2023 07/02/2024 documented as of this encounter Progress Notes * Raj El RN - 04/26/2024 8:14 AM EDT MRI PRE-SEDATION ASSESSMENT NOTE NAME: Kim Funes AGE: 64 y.o. : [address] [place] [address] Female [phone] (home) [phone] (work) Telephone Information: Marcio Devlin, No primary care provider on file. Allergies Allergen Reactions Ibuprofen chest pains, Patient reported Celebrex [Celecoxib] Rash Lodine [Etodolac] Itching Amoxicillin-Pot Clavulanate Nausea And Vomiting Nausea/Vomiting, patient reported Cephalexin Nausea And Vomiting Nausea/Vomiting, Patient reported Doxycycline Nausea And Vomiting Nausea/Vomiting, Patient reported Date/Time of call: April 26, 2024/8:08 AM/ SCHEDULED SCAN: MRI CARDIAC MORPHOLOGY FUNCTION WWO CONTRAST [[id number]] HEIGHT: WEIGHT: Have you had a PREVIOUS [...] tolerated with Valium) You must have a grab driver present when you check in. This patient has been informed that they require a grab driver to drive them home after this procedure. In the absence of a grab driver, IR will not be able tosedate for your scan. Pt verbalized understanding of these instructions during the pre-procedure education via phone. Yes Harding of grab driver: Phone number: PRIOR SCAN DATE/S SEDATION TYPE SUCCESSFUL Revised 03/11/2023 documented in this encounter Plan of Treatment Upcoming Encounters Date Type Department Care Team (Late st Contact Info) Description 10/16/2024 10:00 AM EST Hospital Encounter Non-[place] [phone] Arrived 11/12/2024 8:00 AM EST Appointment Mammography/[place] [address] Gabe Fong MD [facility] [place] [address] 11/30/2024 2:30 PM EDT Office Visit [place] [phone] Gabe Fong MD [facility] [place] [address] 12/07/2024 2:30 PM EDT TH Visit (TeleHealth) [place] [phone] Rosemarie Morrow APRN [facility] [place] [address] documented as of this encounter Procedures Procedure Name Priority Date/Time Associated Diagnosis Comments MRI CARDIAC MORPHOLOGY FUNCTION WWO CONTRAST Routine 04/29/2024 11:51 AM EDT Complete heart block documented in this encounter Results * MRI Cardiac Morphology Function wwo Contrast (04/29/2024 11:51 AM EDT) [employer] WORKSTATION ID [id number] [facility] Anatomical Region Laterality Modality Magnetic Resonan ce [...] have questions please contact the health career resource technician that requested your imaging first. ? [...] who have questions please contactthe health career resource technician that requested your imaging first. Luis Alfredo Velazquez MD [facility] MRI ORDERAB LES documented in this encounter Visit Diagnoses Not on filedocumented in this encounter Care Teams Lye Boiler Relationship Specialty Start Date End Date Marcio Devlin DO [address] [place] [address] PCP - General Family Medicine 11/11/17 documented as of this encounter
--- OUTSIDE RECORDS SUMMARY | 2024-10-04 16:03 | XMS_ITS | Encounter Summary ---
Author Organization [facility] [place] [address] Care Team Providers Care Dental Hygiene Professor Name Role Phone Marcio Devlin DO Primary Care Provider [phone] Encounter Details Date Type Department Care Team (Latest Contact Info) Description 01/06/2024 1:00 PM EDT Office [place] [phone] Gabe Fong MD [facility] [place] [address] High risk medication use; Medication monitoring encounter; [...] once every couple of months or less [facility] Utilities Answer Date Recorded In [...] is a 63 y.o. female PMHx of MÉDNEZ and UC with presenting for follow up [...] AM EST Hospital Encounter Non-Invasive [place] [phone] Arrived 11/12/2024 8:00 AM EST Appointment Mammography/[place] [address] Gabe Fong MD [facility] [place] [address] 11/30/2024 2:30 PM EDT Office [place] [address] Gabe Fong MD [facility] [place] [address] 12/07/2024 2:30 PM EDT TH Visit (TeleHealth) [place] [address] Rosemarie Morrow APRN [facility] [place] [address] Scheduled Orders Name Type Priority Associated Diagnoses Orde r Schedule Hepatic Function Panel Lab Routine High risk [...] hands documented in this encounter Care Teams Dental Hygiene Professor Relationship Specialty Start Date End Date Marcio Devlin DO [address] [place] [address] PCP - General Family Medicine 11/11/17 documented as of this encounter
--- OUTSIDE RECORDS SUMMARY | 2024-10-04 16:03 | XMS_ITS | Encounter Summary ---
Author Organization [facility] Address [facility] [place] [address] Care Team Providers Care Corrective Therapy Aide Name Role Phone Marcio Devlin DO Primary Care Provider [phone] Encounter Details Date Type Department Care Team (Latest Contact Info) Description 12/04/2023 4:21 PM EDT - 12/04/2023 11:59 PM EDT Hospital Encounter XRay at [address] [place] [address] Lizzette Lemos MD [facility] [address] Pacemaker Discharge Disposition: Home Social History Tobacco Use Types Packs/Day Years Used Date Smoking Tobacco: Never Smokeless Tobacco: Never Alcohol Use Standard Drinks/Week Comments Yes 0 (1 standard drink = 0.6 oz pure alcohol) once every couple of months or less [facility] Utilities Answer Date Recorded In [...] slept in a penitentiary (including now)? No 10/21/2023 DH IPV Inpatient [...] by mouth daily. SUMAtriptan (IMITREX) 20 mg/actuation [place], Non-Aerosol 1 spray as needed. 11/03/2017 metFORMIN [...] AM EST Hospital Encounter Non-Invasive [place] [address] Arrived 11/12/2024 8:00 AM EST Appointment Mammography[place] [address] Gabe Fong MD [facility] [address] [place] [place] [address] 11/30/2024 2:30 PM EDT Office [place] [address] Gabe Fong MD [facility] [place] [address] 12/07/2024 2:30 PM EDT TH Visit (TeleHealth) [place] [address] Rosemarie Morrow APRN [facility] [place] [address] documented as of this encounter [...] who have questions please contact the health school childcare attendant that requested your imaging first. ? Electronically signed by: Shalonda Mccain MD, [facility] ([phone]), at 12/05/2023 8:45 AM Narrative 12/05/2023 8:45 [...] patients who have questions please contactthe health school childcare attendant that requested your imaging first. Electronically signed by: Shalonda Mccain [facility] ([phone]), at 12/05/2023 8:45 AM Lizzette Lemos MD IMG DX ORDERABLES documented in this encounter Visit Diagnoses Diagnosis Pacemaker Cardiac pacemaker in situ documented in this encounter Care Teams Corrective Therapy Aide Relationship Specialty Start Date End Date Marcio Devlin DO [address] [place] [address] PCP - General Family Medicine 11/11/17 documented as of this encounter
--- OUTSIDE RECORDS SUMMARY | 2024-10-04 16:03 | XMS_ITS | Encounter Summary ---
Author Organization [facility] [place] [address] Care Team Providers Care Mig Tig Welder Name Role Phone Marcio Devlin DO Primary Care Provider [phone] Reason for Visit * Reason Onset Date Comments Post Procedure Call 10/31/2023 Encounter Details Date Type Department Care Team (Late st Contact Info) Description 10/31/2023 Notes Only Cardiology at [address] [address] Veronica Gann, RN Post Procedure Call Social History Tobacco Use Types Packs/Day Years Used Date Smoking Tobacco: Never Smokeless Tobacco: Never Alcohol Use Standard Drinks/Week Comments Yes 0 (1 standard drink = 0.6 oz pure alcohol) once every couple of months or less [facility] Utilities Answer Date Recorded In the past 12 months has Useful at Night, gas, oil, or water [employer] threatened to shut off services in your [...] AM EST Hospital Encounter Non-Invasive [place] [address] Arrived 11/12/2024 8:00 AM EST Appointment Mammography/[place] [address] Gabe Fong MD [facility] [place] [address] 11/30/2024 2:30 PM EDT Office Visit Rheumatology at [place] [phone] Gabe Fong MD [facility] [place] [address] 12/07/2024 2:30 PM EDT TH Visit (TeleHealth) [place] [address] Rosemarie Morrow APRN [facility] [place] [address] documented as of this encounter Visit Diagnoses Not on filedocumented in this encounter Care Teams Mig Tig Welder Relationship Specialty Start Date End Date Marcio Devlin DO [address] [place] [address] PCP - General Family Medicine 11/11/17 documented as of this encounter
--- OUTSIDE RECORDS SUMMARY | 2024-10-04 16:03 | XMS_ITS | Encounter Summary ---
Author Organization [facility] [place] [address] Care Team Providers Care Pre Press Manager Name Role Phone Marcio Devlin DO Primary Care Provider [phone] Encounter Details Date Type Department Care Team (Latest Contact Info) Description 06/07/2024 2:30 PM EDT TH Visit (TeleHealth) [place] [phone] Dajuan Rachel MD [facility] [place] [address] Ulcerative pancolitis with complication; Abnormal liver function test Social History Tobacco Use Types Packs/Day Years Used Date Smoking Tobacco: Never Smokeless Tobacco: Never Alcohol Use Standard Drinks/Week Comments Yes 0 (1 standard drink = 0.6 oz pure alcohol) once every couple of months or less [facility] Utilities Answer Date Recorded In the [...] # Check stool test for calprotectin at [facility] # Have routine labs drawn # Will reach out to Dr Cruz in the Liver clinic about possible follow-up with her # Follow-up with Delilah Morrow APRN in about 6 months documented in this encounter Progress Notes * Dajuan Rachel MD - 06/07/2024 2:30 PM EDT [facility] IBD PROGRAM ESTABLISHED PATIENT TELEVISIT Patient Active Problem List Diagnosis Pacemaker Overview Note: Onsite Case Manager Model # Serial # Generator [employer] [id number] Atrial Lead [employer] [id number] Ventricular Lead [employer] [id number] Implanted on 10/21/23 for high grade AV [...] disease Colonoscopy 09/19/08 (Dr. Shady Luz at [facility]) for surveillance for dysplasia. [...] iritis Escalated to weekly Humira 11/2019. ADA ([place]) from 6 q 2wk to 12.7 qwk, as well as BID SSZ Colonoscopy Oct 2019: normal rectum, mod-severe inflammation and narrowing from 6-25 cm from the anus, normal remainder of colon. Path: mild active chronic colitis in ac/tc/dc/sc, severe active colitis with ulceration in proximal rectum Colonoscopy December 2020 - severe involvement of L colon, ulmz-in-xhoopffb involvement of transverse and R colon. Worse compared to last exam. SSA at hepatic flexure Adalimumab level ([place]) was 12.7 Switched to Stelara ( 03/21/21, first infusion dose) d/t Lost of response to Humira. Stopped Uceris and sulfasalazine in January 2021. [place] 09/2022 - tubular featureless L colon with slightly diminished vascular pattern. Histology withmild colitis in sigmoid and inactive in descending. SSA in hep flex. [place] 09/2023 - In remission - altered architecture, [...] below for further details re current symptoms. [facility] Gastro Pre-Visit Questionnaire 06/06/2024 12:10 PM EDT [...] Reviewed labs from April [address] [facility]. CBC, LFTs, lipids, CRP all unremarkable with [...] we will check a fecal calprotectin at [facility]. Recommend repeat colonoscopy towards the end [...] # Check stool test for calprotectin at [facility] # Have routine labs drawn # Will reach out to Dr Cruz in the Liver clinic about possible follow-up with her # Follow-up with Delilah Morrow APRN in about 6 months The patient was located in [place] at the time of their visit. Freddy Rachel MD [employer] Machine Operatorangular js developer Co-Director, [facility] Section of [place] [address] documented in this encounter Plan of Treatment Upcoming Encounters Date Type Department Care Team (Late st Contact Info) Description 10/16/2024 10:00 AM EST Hospital Encounter Non-Invasive [place] [address] Arrived 11/12/2024 8:00 AM EST Appointment Mammography/[place] [address] Gabe Fong MD [facility] [address] 11/30/2024 2:30 PM EDT Office [place] [address] Gabe Fong MD [facility] [place] [address] 12/07/2024 2:30 PM EDT TH Visit (TeleHealth) [place] [address] Rosemarie Morrow APRN [facility] [place] [address] Scheduled Orders Name Type Priority Associated Diagnoses Orde r Schedule Calprotectin, Stool Lab Routine Ulcerative pancolitis with complication Expected: 06/07/2024 (Approximate), Expires: 12/07/2024 Gamma GT Lab Routine Abnormal liver function test Expected: 06/07/2024 (Approximate), Expires: 12/07/2024 documented as of this encounter Visit Diagnoses Diagnosis Ulcerative pancolitis with complication Abnormal liver function test Other abnormal blood chemistry documented in this encounter Care Teams Pre Press Manager Relationship Specialty Start Date End Date Marcio Devlin DO [facility] [place] [address] [place] [address] PCP - General Family Medicine 11/11/17 documented as of this encounter
--- OUTSIDE RECORDS SUMMARY | 2024-10-04 16:03 | XMS_ITS | Encounter Summary ---
Author Organization [facility] [place] [address] Care Team Providers Care Frame Coverer Name Role Phone Marcio Devlin DO Primary Care Provider [phone] Reason for Visit * Reason Comments Medication Refill Encounter Details Date Type Department Care Team (Late st Contact Info) Description 10/27/2023 [place] [address] Gabe Fong MD [facility] [address] Social History Tobacco Use Types Packs/Day Years Used Date Smoking Tobacco: Never Smokeless Tobacco: Never Alcohol Use Standard Drinks/Week Comments Yes 0 (1 standard drink = 0.6 oz pure alcohol) once every couple of months or less [facility] Utilities Answer Date Recorded In the past 12 months has [employer] electric, gas, oil, or water company threatened [...] AM EST Hospital Encounter Non-Invasive [place] [address] Arrived 11/12/2024 8:00 AM EST Appointment Mammography/[place] [address] Gabe Fong MD [facility] [address] 11/30/2024 2:30 PM EDT Office [place] [address] Gabe Fong MD [facility] [address] 12/07/2024 2:30 PM EDT TH Visit (TeleHealth) [place] [address] Rosemarie Morrow APRN [facility] [place] [address] documented as of this encounter Visit Diagnoses Not on filedocumented in this encounter Care Teams Frame Coverer Relationship Specialty Start Date End Date Marcio Devlin DO [address] [place] [address] PCP - General Family Medicine 11/11/17 documented as of this encounter
--- OUTSIDE RECORDS SUMMARY | 2024-10-04 16:03 | XMS_ITS | Encounter Summary ---
Author Organization [facility] Address [place] [address] Care Team Providers Care V Block Saw Operator Name Role Phone Marcio Devlin DO Primary Care Provider [phone] Encounter Details Date Type Department Care Team (Late st Contact Info) Description 12/04/2023 3:30 PM EDT Office Visit Cardiology at [address] [address] [place] [facility] [place] [address] Complete heart block; Pacemaker; Pacemaker complications, initial encounter Social History Tobacco Use Types Packs/Day Years Used Date Smoking Tobacco: Never Smokeless Tobacco: Never Alcohol Use Standard Drinks/Week Comments Yes 0 (1 standard drink = 0.6 oz pure alcohol) once every couple of months or less [facility] Utilities Answer Date Recorded In the past 12 months has [employer], gas, oil, or water company threatened [...] EDT Cardiac Electrophysiology Clinic Follow-Up Kim Funes [id number] 12/04/2023 History: Ms. Funes is a pleasant [...] Active Problem List Diagnosis Pacemaker Overview Note: Virtual Assistant Model # Serial # Generator [employer] [id number] Atrial Lead [employer] [id number] Ventricular Lead [employer] [id number] Implanted on 10/21/23 for high grade AV [...] disease Colonoscopy 09/19/08 (Dr. Shady Luz at [facility]) for surveillance for dysplasia. Areas [...] 2020 - severe involvement of L colon, rfut-rz-ufoscaah involvement of transverse and R colon. Worse compared to last exam. SSA at hepatic flexure Adalimumab level (garcía) was 12.7 Switched to Stelara ( 03/21/21, first infusion dose) d/t Lost of response to Humira. Stopped Uceris and sulfasalazine in January 2021. [place] 09/2022 - tubular featureless L colon with [...] disease Colonoscopy 09/19/08 (Dr. Shady Luz at [facility]) for surveillance for dysplasia. Areas [...] by mouth daily. SUMAtriptan (IMITREX) 20 mg/actuation [place], Non-Aerosol 1 spray as needed. metFORMIN (GLUCOPHAGE) [...] person, place, and time. Device Interrogation: Data Virtual Assistant Model # Serial # Generator [employer] [id number] Atrial Lead [employer] [id number] Ventricular Lead [employer] [id number] Diagnostics Pacing Mode: DDD 60/130/130 Presenting EGMs: -PLACER MINER Underlying Rhythm: CHB with escape VVI 30 [...] one week considering current soreness and recent omy-fo-xttbcgjztap period. - Scheduled imaging studies (X-ray) immediately [...] AM EST Hospital Encounter Non-[place] [address] Arrived 11/12/2024 8:00 AM EST Appointment Mammography/DXA at [place] [phone] Gabe Fong MD [facility] [address] [place] [address] 11/30/2024 2:30 PM EDT Office [place] [address] Gabe Fong MD [facility] [address] [place] [address] 12/07/2024 2:30 PM EDT TH Visit (TeleHealth) Gastroenterology at [place] [phone] Rosemarie Morrow, FINISHING TUNNEL OPERATOR [facility] [place] [address] documented as of this encounter Visit Diagnoses Diagnosis Complete heart block Atrioventricular block, complete Pacemaker Cardiac pacemaker in situ Pacemaker complications, initial encounter documented in this encounter Care Teams V Block Saw Operator Relationship Specialty Start Date End Date Marcio Devlin DO [address] [place] [address] PCP - General Family Medicine 11/11/17 documented as of this encounter
--- OUTSIDE RECORDS SUMMARY | 2024-10-04 16:03 | XMS_ITS | Encounter Summary ---
Author Organization [facility] [place] [address] Care Team Providers Care Garment Tag Stringer Name Role Phone Marcio Devlin DO Primary Care Provider [phone] Encounter Details Date Type Department Care Team (Latest Contact Info) Description 04/22/2024 Travel Social History Tobacco Use Types Packs/Day Years Used Date Smoking Tobacco: Never Smokeless Tobacco: Never Alcohol Use Standard Drinks/Week Comments Yes 0 (1 standard drink = 0.6 oz pure alcohol) once every couple of months or less [facility] Utilities Answer Date Recorded In [...] EST Hospital Encounter Non-Invasive [place] [address] Arrived 11/12/2024 8:00 AM EST Appointment Mammography/[place] [address] Gabe Fong MD [facility] [address] [place] [address] 11/30/2024 2:30 PM EDT Office [place] [address] Gabe Fong MD [facility] [address] [place] [address] 12/07/2024 2:30 PM EDT TH Visit (TeleHealth) [place] [address] Rosemarie Morrow, SKIP [facility] [place] [address] documented as of this encounter Visit Diagnoses Not on filedocumented in this encounter Care Teams Garment Tag Stringer Relationship Specialty Start Date End Date Marcio Devlin DO [address] [place] [address] PCP - General Family Medicine 11/11/17 documented as of this encounter
--- OUTSIDE RECORDS SUMMARY | 2024-10-04 16:03 | XMS_ITS | Encounter Summary ---
Author Organization [facility] [place] [address] Care Team Providers Care Board Attendant Name Role Phone Marcio Devlin DO Primary Care Provider [phone] Encounter Details Date Type Department Care Team (Latest Contact Info) Description 01/06/2024 Travel Social History Tobacco Use Types Packs/Day Years Used Date Smoking Tobacco: Never Smokeless Tobacco: Never Alcohol Use Standard Drinks/Week Comments Yes 0 (1 standard drink = 0.6 oz pure alcohol) once every couple of months or less [facility] Utilities Answer Date Recorded In the [...] in a penitentiary (including now)? No 10/21/2023 IPV Inpatient Questions [...] AM EST Hospital Encounter Non-[place] [address] Arrived 11/12/2024 8:00 AM EST Appointment Mammography/[place] [address] Gabe Fong MD [facility] [address] [place] [address] 11/30/2024 2:30 PM EDT Office [place] [address] Gabe Fong MD [facility] [address] [place] [address] 12/07/2024 2:30 PM EDT TH Visit (TeleHealth) [place] [address] Rosemarie Morrow, SKIP [facility] [place] [place] [address] documented as of this encounter Visit Diagnoses Not on filedocumented in this encounter Care Teams Board Attendant Relationship Specialty Start Date End Date Marcio Devlin DO [address] [place] [address] PCP - General Family Medicine 11/11/17 documented as of this encounter
--- OUTSIDE RECORDS SUMMARY | 2024-10-04 16:03 | XMS_ITS | Encounter Summary ---
Author Organization [facility] [place] [address] Care Team Providers Care Curing Oven Tender Name Role Phone Marcio Devlin DO Primary Care Provider [phone] Encounter Details Date Type Department Care Team (Late st Contact Info) Description 11/11/2023 Telephone Cardiology at [address] [address] Clau Romero RN Social History Tobacco Use Types Packs/Day Years Used Date Smoking Tobacco: Never Smokeless Tobacco: Never Alcohol Use Standard Drinks/Week Comments Yes 0 (1 standard drink = 0.6 oz pure alcohol) once every couple of months or less [facility] Utilities Answer Date Recorded In the past 12 months has [facility] [id number], gas, oil, or water [employer] threatened to shut off services in your [...] has been scanned into Media, by [employer] [facility]. Clau Romero (Jodie) RN, BSN Cardiology Ambulatory [facility] documented in this encounter Plan of Treatment Upcoming Encounters Date Type Department Care Team (Late st Contact Info) Description 10/16/2024 10:00 AM EST Hospital Encounter Non-[place] [address] Arrived 11/12/2024 8:00 AM EST Appointment Mammography/[place] [address] Gabe Fong MD [facility] [place] [address] 11/30/2024 2:30 PM EDT Office Visit Rheumatology at [address] Gabe Fong MD [facility] [place] [place] [address] 12/07/2024 2:30 PM EDT TH Visit (TeleHealth) Gastroenterology at [place] [phone] Rosemarie Morrow, SKIP [facility] [place] [address] documented as of this encounter Visit Diagnoses Not on filedocumented in this encounter Care Teams Curing Oven Tender Relationship Specialty Start Date End Date Marcio Devlin DO [address] [place] [address] PCP - General Family Medicine 11/11/17 documented as of this encounter
--- OUTSIDE RECORDS SUMMARY | 2024-10-04 16:03 | XMS_ITS | Encounter Summary ---
Author Organization [place] [address] Care Team Providers Care Telecommunicator Name Role Phone Marcio Devlin DO Primary Care Provider [phone] Encounter Details Date Type Department Care Team (Late st Contact Info) Description 12/04/2023 Telephone Cardiology at [address] [address] Rafaela Dillon Social History Tobacco Use Types Packs/Day Years Used Date Smoking Tobacco: Never Smokeless Tobacco: Never Alcohol Use Standard Drinks/Week Comments Yes 0 (1 standard drink = 0.6 oz pure alcohol) once every couple of months or less [facility] Utilities Answer Date Recorded In the past 12 months has [facility] [employer], gas, oil, or water [employer] threatened to shut off services in your [...] AM EST Hospital Encounter Non[place] [address] Arrived 11/12/2024 8:00 AM EST Appointment Mammography/[place] [address] Gabe Fong MD [facility] [place] [address] 11/30/2024 2:30 PM EDT Office Visit Rheumatology at [place] [phone] Gabe Fong MD [facility] [place] [address] 12/07/2024 2:30 PM EDT TH Visit (TeleHealth) [place] [address] Rosemarie Morrow APRN [facility] [place] [address] documented as of this encounter Visit Diagnoses Not on filedocumented in this encounter Care Teams Telecommunicator Relationship Specialty Start Date End Date Marcio Devlin DO [address] [place] [address] PCP - General Family Medicine 11/11/17 documented as of this encounter
--- OUTSIDE RECORDS SUMMARY | 2024-10-04 16:03 | XMS_ITS | Encounter Summary ---
Author Organization [facility] [place] [address] Care Team Providers Care Dry Boss Name Role Phone Marcio Devlin DO Primary Care Provider [phone] Reason for Visit * Reason Comments Medication Refill Encounter Details Date Type Department Care Team (Late st Contact Info) Description 02/03/2024 Refill [place] [address] Lola Haley, [facility] [place] [address] Social History Tobacco Use Types Packs/Day Years Used Date Smoking Tobacco: Never Smokeless Tobacco: Never Alcohol Use Standard Drinks/Week Comments Yes 0 (1 standard drink = 0.6 oz pure alcohol) once every couple of months or less [facility] Utilities Answer Date Recorded In the past 12 months has [employer] electric, gas, oil, or water company threatened [...] AM EST Hospital Encounter Non-Invasive [place] [address] Arrived 11/12/2024 8:00 AM EST Appointment Mammography/[place] [address] Gabe Fong MD [facility] RHEUMATOLOGY [place] [id number] 11/30/2024 2:30 PM EDT Office [place] [address] Gabe Fong MD [facility] [address] 12/07/2024 2:30 PM EDT TH Visit (TeleHealth) [place] [address] Rosemarie Morrow APRN [facility] [place] [address] documented as of this encounter Visit Diagnoses Not on filedocumented in this encounter Care Teams Dry Boss Relationship Specialty Start Date End Date Marcio Devlin DO [address] [place] [address] PCP - General Family Medicine 11/11/17 documented as of this encounter
--- OUTSIDE RECORDS SUMMARY | 2024-10-04 16:03 | XMS_ITS | Encounter Summary ---
Author Organization [facility] [place] [address] Care Team Providers Care Field Support Rep Name Role Phone Marcio Devlin DO Primary Care Provider [phone] Encounter Details Date Type Department Care Team (Latest Contact Info) Description 11/21/2023 Travel Social History Tobacco Use Types Packs/Day Years Used Date Smoking Tobacco: Never Smokeless Tobacco: Never Alcohol Use Standard Drinks/Week Comments Yes 0 (1 standard drink = 0.6 oz pure alcohol) once every couple of months or less [facility] Utilities Answer Date Recorded In the [...] AM EST Hospital Encounter Non-[place] [address] Arrived 11/12/2024 8:00 AM EST Appointment Mammography/[place] [address] Gabe oFng MD [facility] [address] [place] [address] 11/30/2024 2:30 PM EDT Office [place] [address] Gabe Fong MD [facility] [address] [place] [address] 12/07/2024 2:30 PM EDT TH Visit (TeleHealth) [place] [address] Rosemarie Morrow, SKIP [facility] [place] [address] documented as of this encounter Visit Diagnoses Not on filedocumented in this encounter Care Teams Field Support Rep Relationship Specialty Start Date End Date Marcio Devlin DO [address] [place] [address] PCP - General Family Medicine 11/11/17 documented as of this encounter
--- OUTSIDE RECORDS SUMMARY | 2024-10-04 16:03 | XMS_ITS | Encounter Summary ---
Author Organization [facility] [place] [address] Care Team Providers Care Combat Control Manager Name Role Phone Marcio Devlin DO Primary Care Provider [phone] Reason for Visit * Reason Comments Medication Refill Encounter Details Date Type Department Care Team (Late st Contact Info) Description 05/24/2024 Ref[place] [address] Gabe Fong MD [facility] [place] [address] Social History Tobacco Use Types Packs/Day Years Used Date Smoking Tobacco: Never Smokeless Tobacco: Never Alcohol Use Standard Drinks/Week Comments Yes 0 (1 standard drink = 0.6 oz pure alcohol) once every couple of months or less [facility] Utilities Answer Date Recorded In the past 12 months has [employer] electric, gas, oil, or water company threatened [...] AM EST Hospital Encounter Non[place] [address] Arrived 11/12/2024 8:00 AM EST Appointment Mammography/[place] [address] Gabe Fong MD [facility] [place] [address] 11/30/2024 2:30 PM EDT Office [place] [address] Gabe Fong MD [facility] [place] [address] 12/07/2024 2:30 PM EDT TH Visit (TeleHealth) [place] [address] Rosemarie Morrow APRN [facility] [place] [address] documented as of this encounter Visit Diagnoses Not on filedocumented in this encounter Care Teams Combat Control Manager Relationship Specialty Start Date End Date Marcio Devlin DO [address] [place] [address] PCP - General Family Medicine 11/11/17 documented as of this encounter
--- OUTSIDE RECORDS SUMMARY | 2024-10-04 16:03 | XMS_ITS | Encounter Summary ---
Author Organization [facility] [place] [address] Care Team Providers Care Hydraulic Press Operator Name Role Phone Marcio Devlin DO Primary Care Provider [phone] Encounter Details Date Type Department Care Team (Latest Contact Info) Description 12/04/2023 Travel Social History Tobacco Use Types Packs/Day Years Used Date Smoking Tobacco: Never Smokeless Tobacco: Never Alcohol Use Standard Drinks/Week Comments Yes 0 (1 standard drink = 0.6 oz pure alcohol) once every couple of months or less [facility] Utilities Answer Date Recorded In [...] AM EST Hospital Encounter Non-Invasive [place] [address] Arrived 11/12/2024 8:00 AM EST Appointment Mammography[place] [address] Gabe Fong MD [facility] [address] [place] [address] 11/30/2024 2:30 PM EDT Office [place] [address] Gabe Fong MD [facility] [address] [place] [address] 12/07/2024 2:30 PM EDT TH Visit (TeleHealth) [place] [address] Rosemarie Morrow, SKIP [facility] [place] [address] documented as of this encounter Visit Diagnoses Not on filedocumented in this encounter Care Teams Hydraulic Press Operator Relationship Specialty Start Date End Date Marcio Devlin DO [address] [place] [address] PCP - General Family Medicine 11/11/17 documented as of this encounter
--- OUTSIDE RECORDS SUMMARY | 2024-10-04 16:03 | XMS_ITS | Encounter Summary ---
Author Organization [facility] [place] [address] Care Team Providers Care Facility Administrator Name Role Phone Marcio Devlin DO Primary Care Provider [phone] Encounter Details Date Type Department Care Team (Latest Contact Info) Description 07/01/2024 Travel Social History Tobacco Use Types Packs/Day Years Used Date Smoking Tobacco: Never Smokeless Tobacco: Never Alcohol Use Standard Drinks/Week Comments Yes 0 (1 standard drink = 0.6 oz pure alcohol) once every couple of months or less [facility] Utilities Answer Date Recorded [...] AM EST Hospital Encounter Non[place] [address] Arrived 11/12/2024 8:00 AM EST Appointment Mammography/[place] [address] Gabe Fong MD [facility] [address] [place] [address] 11/30/2024 2:30 PM EDT Office [place] [address] Gabe Fong MD [facility] [address] [place] [address] 12/07/2024 2:30 PM EDT TH Visit (TeleHealth) [place] [address] Rosemarie Morrow, SKIP [facility] [place] [address] documented as of this encounter Visit Diagnoses Not on filedocumented in this encounter Care Teams Facility Administrator Relationship Specialty Start Date End Date Marcio Devlin DO [address] [place] [address] PCP - General Family Medicine 11/11/17 documented as of this encounter
--- OUTSIDE RECORDS SUMMARY | 2024-10-04 16:04 | XMS_ITS | Encounter Summary ---
Author Organization [facility] [place] [address] Care Team Providers Care Language Interpreter Name Role Phone Marcio Devlin DO Primary Care Provider [phone] Encounter Details Date Type Department Care Team (Latest Contact Info) Description 07/14/2023 External Results [facility] [employer] [address] [place] [address] Provider, His Will MD None Ankylosing spondylitis [...] AM EST Hospital Encounter Non-Invasive Cardiology Lab [place] [phone] Arrived 11/12/2024 8:00 AM EST Appointment Mammography/DXA at [place] [phone] Gabe Fong MD [facility] [address] [place] [address] 11/30/2024 2:30 PM EDT Office Visit Rheumatology at [place] [phone] Gabe Fong MD [facility] [address] [place] [address] 12/07/2024 2:30 PM EDT TH Visit (TeleHealth) Gastroenterology at [place] [phone] Rosemarie Morrow APRN [facility] [place] [address] documented as of this encounter Procedures Procedure [...] ORDERABLES Performing Organization Address [facility] de Phone Number EXTERNAL FACILITY * (ABNORMAL) CRP, acute inflammation (06/27/2023 2:40 PM EDT) C-Reactive Protein 3.10(H) EXTERNAL FACILITY Blood 06/27/2023 2:40 PM EDT Gabe Fong MD CHEMISTRY ORDERABLES Performing Organization Address [facility] Phone Number EXTERNAL FACILITY * External CBC [...] CARE TEST O RDERABLES Performing Organization Address [facility] de Phone Number EXTERNAL FACILITY * Tissue transglutaminase, IgA (06/27/2023 2:40 PM EDT) TTG IgA Ab <1.2 EXTERNAL FACILITY Blood 06/27/2023 2:40 PM EDT Gabe Fong MD IMMUNOLOGY ORDERABLE S Performing Organization Address [facility] Co de Phone Number EXTERNAL FACILITY * Mitochondrial Antibody, M2 (06/27/2023 2:40 PM EDT) Mitochon Ab (JANUARY) <0.1 EXTERNAL FACILITY Blood 06/27/2023 2:40 PM EDT Gabe Fong MD LAB SEND OUT ORDERAB LES Performing Organization Address [facility] Co de Phone Number EXTERNAL FACILITY * IgA (06/27/2023 2:40 PM EDT) IgA 496 EXTERNAL FACILITY Blood 06/27/2023 2:40 PM EDT Gabe Fong MD CHEMISTRY ORDERABLES Performing Organization Address [facility] Co de Phone Number EXTERNAL FACILITY * Sedimentation rate (06/27/2023 2:40 PM EDT) Sedimentation Rate Automated 22 EXTERNAL FACILITY Blood 06/27/2023 2:40 PM EDT Gabe Fong MD HEMATOLOGY ORDERABLE S Performing Organization Address [facility] Co de Phone Number EXTERNAL FACILITY documented in this encounter Visit Diagnoses Diagnosis Ankylosing spondylitis of cervical region Ankylosing spondylitis Ulcerative colitis without complications, unspecified location High risk medication use Encounter for long-term (current) use of other medications Primary osteoarthritis of both hips Primary localized osteoarthrosis, pelvic region and thigh 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
--- OUTSIDE RECORDS SUMMARY | 2024-10-04 16:04 | XMS_ITS | Encounter Summary ---
Author Organization [facility] [place] [address] Care Team Providers Care Automotive General Sales Manager Name Role Phone Marcio Devlin DO Primary Care Provider [phone] Reason for Visit * Reason Comments Specialty Pharmacy Review Upadacitinib ( rinvoq) 15mg tablets Encounter Details Date Type Department Care Team (Late st Contact Info) Description 09/03/2023 Specialty Pharmacy [place] [address] Francisca Olivas, [facility] Social History Tobacco Use Types [...] and the patient's eligibility to fill at [facility] is pending further review at this time. documented in this encounter Plan of Treatment Upcoming Encounters Date Type Department Care Team (Late st Contact Info) Description 10/16/2024 10:00 AM EST Hospital Encounter Non-[place] [address] Arrived 11/12/2024 8:00 AM EST Appointment Mammography/[place] [phone] Gabe Fong MD [facility] [address] [place] [address] 11/30/2024 2:30 PM EDT Office Visit [place] [address] Gabe Fong MD [facility] [place] [address] 12/07/2024 2:30 PM EDT TH Visit (TeleHealth) [place] [address] Rosemarie Morrow, SKIP [facility] [place] [address] documented as of this encounter Visit Diagnoses Not on filedocumented in this encounter Care Teams Automotive General Sales Manager Relationship Specialty Start Date End Date Marcio Devlin DO [address] [place] [address] PCP - General Family Medicine 11/11/17 documented as of this encounter
--- OUTSIDE RECORDS SUMMARY | 2024-10-04 16:04 | XMS_ITS | Encounter Summary ---
Author Organization [facility] [place] [address] Care Team Providers Care Leather Grainer Name Role Phone Marcio Devlin DO Primary Care Provider [phone] Encounter Details Date Type Department Care Team (Late st Contact Info) Description 09/10/2023 Telephone [place] [address] [place] R[place] Social History Tobacco [...] - 09/10/2023 1:40 PM EST Kim Funes [id number] Diagnosis/Indication: UC surveillance - Rinvoq started 04/2023 [...] procedure? No You must have a responsible green party who will drive you to your procedure, stay on campus for the entire duration of your procedure, and drive you home from your procedure. Who will likely be your charter coach driver for the procedure? *Please Verify the [...] AM EST Hospital Encounter Non-[place] [address] Arrived 11/12/2024 8:00 AM EST Appointment Mammography/DXA at [place] [phone] Gabe Fong MD [facility] [place] [address] 11/30/2024 2:30 PM EDT Office Visit Rheumatology at [address] Gabe Fong MD [facility] [place] [address] 12/07/2024 2:30 PM EDT TH Visit (TeleHealth) Gastroenterology at [place] [phone] Rosemarie Morrow APRN [facility] [place] [address] documented as of this encounter Visit Diagnoses Not on filedocumented in this encounter Care Teams Leather Grainer Relationship Specialty Start Date End Date Marcio Devlin DO [address] [place] [address] PCP - General Family Medicine 11/11/17 documented as of this encounter
--- OUTSIDE RECORDS SUMMARY | 2024-10-04 16:04 | XMS_ITS | Encounter Summary ---
Author Organization [facility] [place] [address] Care Team Providers Care Flux Core Welder Name Role Phone Marcio Devlin DO Primary Care Provider [phone] Encounter Details Date Type Department Care Team (Late st Contact Info) Description 10/20/2023 External [place] [phone] Social History Tobacco Use Types Packs/Day Years Used Date Smoking Tobacco: Never Smokeless Tobacco: Never Alcohol Use Standard Drinks/Week Comments Yes 0 (1 standard drink = 0.6 oz pure alcohol) once every couple of months or less [facility] Utilities Answer Date Recorded In the past 12 months has [facility] [place], gas, oil, or water [employer] threatened to shut off services in your [...] AM EST Hospital Encounter Non-Invasive Cardiology Lab [place] [phone] Arrived 11/12/2024 8:00 AM EST Appointment Mammography/DXA at [place] [phone] Gabe Fong MD [facility] [place] [address] 11/30/2024 2:30 PM EDT Office Visit Rheumatology at [place] [phone] Gabe Fong MD [facility] [place] [address] [place] [address] 12/07/2024 2:30 PM EDT TH Visit (TeleHealth) [place] [address] Rosemarie Morrow, FLOUR TESTER [facility] [place] [address] documented as of this encounter Procedures Procedure [...] on filedocumented in this encounter Care Teams Flux Core Welder Relationship Specialty Start Date End Date Marcio Devlin DO [address] [place] [address] PCP - General Family Medicine 11/11/17 documented as of this encounter
--- OUTSIDE RECORDS SUMMARY | 2024-10-04 16:04 | XMS_ITS | Encounter Summary ---
Author Organization [facility] Address [facility] [place] [address] Care Team Providers Care Geometrician Name Role Phone Marcio Devlin DO Primary Care Provider [phone] Encounter Details Date Type Department Care Team (Late st Contact Info) Description 09/18/2023 Orders Only [place] [address] Dajuan Rachel MD [facility] [place] [address] Ulcerative pancolitis with complication Social History Tobacco [...] AM EST Hospital Encounter Non-Invasive Cardiology Lab [place] [phone] Arrived 11/12/2024 8:00 AM EST Appointment Mammography/DXA at [place] [phone] Gabe Fong MD [facility] [address] [place] [address] 11/30/2024 2:30 PM EDT Office [place] [address] Gabe Fong MD [facility] [address] [place] [address] 12/07/2024 2:30 PM EDT TH Visit (TeleHealth) Gastroenterology at [place] [phone] Rosemarie Morrow, SKIP [facility] [place] [address] Scheduled Orders Name Type Priority Associated Diagnoses [...] complication documented in this encounter Care Teams Geometrician Relationship Specialty Start Date End Date Marcio Devlin DO [address] [place] [address] PCP - General Family Medicine 11/11/17 documented as of this encounter
--- OUTSIDE RECORDS SUMMARY | 2024-10-04 16:04 | XMS_ITS | Encounter Summary ---
Author Organization [facility] [place] [address] Care Team Providers Care Appliance Installer Name Role Phone Marcio Devlin DO Primary Care Provider [phone] Reason for Visit * Reason Comments Medication Refill Encounter Details Date Type Department Care Team (Late st Contact Info) Description 07/07/2023 [place] [address] Jarad Srivastava, YURIY Social History Tobacco Use Types Packs/Day Years [...] AM EST Hospital Encounter Non-Invasive Cardiology Lab [address]1000 Arrived 11/12/2024 8:00 AM EST Appointment Mammography/DXA at [address]1000 Gabe Fong MD [facility] [place] [address] 11/30/2024 2:30 PM EDT Office Visit Rheumatology at [place] [phone] Gabe Fong MD [facility] [place] [address] 12/07/2024 2:30 PM EDT TH Visit (TeleHealth) Gastroenterology at [place] [phone] Rosemarie Morrow, SKIP [facility] [place] [address] documented as of this encounter Visit Diagnoses Not on filedocumented in this encounter Care Teams Appliance Installer Relationship Specialty Start Date End Date Marcio Devlin DO [address] [place] [address] PCP - General Family Medicine 11/11/17 documented as of this encounter
--- OUTSIDE RECORDS SUMMARY | 2024-10-04 16:04 | XMS_ITS | Encounter Summary ---
Author Organization [place] [address] Care Team Providers Care Organ Installer Name Role Phone Marcio Devlin DO Primary Care Provider [phone] Encounter Details Date Type Department Care Team (Late st Contact Info) Description 10/20/2023 Tele[place] [phone] Nba Rincon MD [facility] [place] [address] Social History Tobacco Use Types Packs/Day Years Used Date Smoking Tobacco: Never Smokeless Tobacco: Never Alcohol Use Standard Drinks/Week Comments Yes 0 (1 standard drink = 0.6 oz pure alcohol) once every couple of months or less [facility] Utilities Answer Date Recorded In the past 12 months has [employer], gas, oil, or water [employer] threatened to shut off services in your [...] from the original note were not included. [facility] [place] [address] [place] [address] 10/20/2023 Kim Funes Initial Contact Date: 10/20/2023 Initial Contact Time: 6:16 AM Referring Provider: Cesar Albert DO Patient Location: [facility] Past Medical History: UC associated ankylosing [...] AM EST Hospital Encounter Non-Invasive [place] [address] Arrived 11/12/2024 8:00 AM EST Appointment Mammography/[place] [address] Gabe Fong MD [facility] [place] [address] 11/30/2024 2:30 PM EDT Office [place] [address] Gabe Fong MD [facility] [place] [address] 12/07/2024 2:30 PM EDT TH Visit (TeleHealth) [place] [address] Rosemarie Morrow, SKIP [facility] [place] [address] documented as of this encounter Visit Diagnoses Not on filedocumented in this encounter Care Teams Organ Installer Relationship Specialty Start Date End Date Marcio Devlin DO [address] [place] [address] PCP - General Family Medicine 11/11/17 documented as of this encounter
--- OUTSIDE RECORDS SUMMARY | 2024-10-04 16:04 | XMS_ITS | Encounter Summary ---
Author Organization [facility] [place] [address] Care Team Providers Care Call Center Team Leader Name Role Phone Marcio Devlin DO Primary Care Provider [phone] Reason for Visit * Reason Comments Specialty Pharmacy Review Upadacitinib ( Rinvoq) 15mg Tablet Encounter Details Date Type Department Care Team (Late st Contact Info) Description 07/07/2023 Specialty [place] [address] Alison Ortiz, [facility] Social History Tobacco Use Types Packs/Day Years Used Date Smoking Tobacco: Never Smokeless Tobacco: Never Alcohol Use Standard Drinks/Week Comments Yes 0 (1 standard drink = 0.6 oz pure alcohol) once every couple of months or less [facility] Utilities Answer Date Recorded In the past 12 months has [employer], gas, oil, or water [employer] threatened to shut off services in your [...] Ortiz - 07/07/2023 3:49 PM EDT The [facility] has completed a benefits investigation for Kim Funes to review their eligibility to fill at [facility]. Per patient's medication list they are prescribed Rinvoq and the medication is not able to be filled at the [facility]. At this time insurance mandates this medication must be filled through [facility]. documented in this encounter Plan of Treatment Upcoming Encounters Date Type Department Care Team (Late st Contact Info) Description 10/16/2024 10:00 AM EST Hospital Encounter Non-[place] [address] Arrived 11/12/2024 8:00 AM EST Appointment Mammography/[place] [address] Gabe Fong MD [facility] [place] [place] [address] 11/30/2024 2:30 PM EDT Office [place] [address] Gabe Fong MD [facility] [place] [address] 12/07/2024 2:30 PM EDT TH Visit (TeleHealth) [place] [address] Rosemarie Morrow, SKIP [facility] [place] [address] documented as of this encounter Visit Diagnoses Not on filedocumented in this encounter Care Teams Call Center Team Leader Relationship Specialty Start Date End Date Marcio Devlin DO [address] [place] [address] PCP - General Family Medicine 11/11/17 documented as of this encounter
--- OUTSIDE RECORDS SUMMARY | 2024-10-04 16:04 | XMS_ITS | Encounter Summary ---
Author Organization [facility] [place] [address] Care Team Providers Care Acquisition Marketing Coordinator Name Role Phone Marcio Devlin DO Primary Care Provider [phone] Reason for Visit * Auth/Cert (Routine) Specialty Diagnoses / Procedures Referred By Contac t Referred To Contact Diagnoses Ulcerative (chronic) pancolitis with unspecified complications UC surveillance - Rinvoq started 04/2023. PLEASE BOOK FOR SEP 2023 Procedures PRO COLONOSCOPY, DIAGNOSTIC PRO COLONOSCOPY, BIOPSY PRO COLONOSCOPY, REMV LESN, SNARE PRO ANES, LWR INTESTINE, NOS COLONOSCOPY, DIAGNOSTIC (WRVU 3.26) Dajuan Rachel MD [facility] [address] [facility] Referral ID Status Reason Start Date Expiration Date Visits Re quested Visits Authorized [id number] 1 1 Encounter Details Date Type Department Care Team (Late st Contact Info) Description 09/18/2023 3:00 PM EST - 09/18/2023 4:00 PM EST Surgery [place] [address] Dajuan Rachel MD [facility] GASTROENTEROLOGY [place], [place] [id number] COLONOSCOPY FLEXIBLE, WITH BX (WRVU 3.56) Social [...] occurs, please contact your Doctor. Please call [phone] before 8pm Mon-Fri with problems, questions or concerns. If you call after 8pm or on weekends, call the Hospital at [phone] and ask to speak to the Ordinary Seaman conference service coordinator and the silo operator will contact that person for you. When should you call for help? Call [phone] anytime you think you may need emergency [...] Where can you learn more? [facility] View your After Visit Summary and more online at [email or web address] If you would like to provide [...] cost to you. Content Version: 12.2 ?? [id number] [employer]. Care instructions adapted under license by [facility]. If you have questions about a medical condition or this instruction, always ask your healthcare professional. [employer] disclaims any warranty or liability for your [...] by mouth daily. SUMAtriptan (IMITREX) 20 mg/actuation [place], Non-Aerosol 1 spray as needed. 11/03/2017 metFORMIN [...] Hepatology Pre-Procedure History and Physical Exam Procedure: [place] Indication: UC restaging and surveillance Patient Active [...] AM EST Hospital Encounter Non-[place] [address] Arrived 11/12/2024 8:00 AM EST Appointment Mammography/DXA at [place] [phone] Gabe Fong MD [facility] [place] [address] 11/30/2024 2:30 PM EDT Office [place] [address] Gabe Fong MD [facility] [place] [address] 12/07/2024 2:30 PM EDT TH Visit (TeleHealth) [place] [address] Rosemarie Morrow APRN [facility] [place] [address] documented as of this encounter Procedures Procedure Name Priority Date/Time Associated Diagnosis Comments SPECIMEN TO PATHOLOGY Routine 09/18/2023 4:27 PM EST SPECIMEN TO PATHOLOGY Routine 09/18/2023 4:27 PM EST SPECIMEN TO PATHOLOGY Routine 09/18/2023 4:27 PM EST SPECIMEN TO PATHOLOGY Routine 09/18/2023 4:27 PM EST SURGICAL PATHOLOGY REPORT Routine 09/18/2023 4:13 PM EST COLONOSCOPY Routine 09/18/2023 3:57 PM EST Colonoscopy, Biopsy ([id number]) 09/18/2023 3:47 PM EST Ulcerative pancolitis with complication documented in this encounter Results * Specimen to Pathology (09/18/2023 4:27 PM EST) AP Specimen 09/18/2023 4:27 PM EST 09/18/2023 4:27 PM EST Narrative [facility] - 09/18/2023 4:27 PM EST Specimen requisition ordered. ??Separate Pathology report to follow L Jose Rachel MD PATHOLOGY/CYTOLOGY O IR[facility] Performing Organization Address City/[facility] [place] [address] * Specimen to Pathology (09/18/2023 4:27 PM EST) AP Specimen 09/18/2023 4:27 PM EST 09/18/2023 4:27 PM EST Narrative [facility] - 09/18/2023 4:27 PM EST Specimen requisition ordered. ??Separate Pathology report to follow L Jose Rachel MD PATHOLOGY/CYTOLOGY O IRMA Performing Organization Address [facility] Co de Phone Number [facility] [address] * Specimen to Pathology (09/18/2023 4:27 PM EST) AP Specimen 09/18/2023 4:27 PM EST 09/18/2023 4:27 PM EST Narrative [facility] - 09/18/2023 4:27 PM EST Specimen requisition ordered. ??Separate Pathology report to follow L Jose Rachel MD PATHOLOGY/CYTOLOGY O IR[facility] Performing Organization Address [facility] [place] [address] * Specimen to Pathology (09/18/2023 4:27 PM EST) AP Specimen 09/18/2023 4:27 PM EST 09/18/2023 4:27 PM EST Narrative [facility] - 09/18/2023 4:27 PM EST Specimen requisition ordered. ??Separate Pathology report to follow L Jose Rachel MD PATHOLOGY/CYTOLOGY O IRMA [facility] [place] [id number] * Surgical Pathology Report (09/18/2023 4:13 PM EST) Final Diagnosis [id number] ? Location: 4T; EA; A The signing pathologist has (i) examined [...] Iker Verified: ??09/26/2023 15:23 ??Pathologist Performed at: ??-[facility]ology, [place] [address] Farmhand: Dg Brown MD, FCAP, ??CLIA Certificate: [id number] SPECIMEN(S) SUBMITTED A - nondirected right colon [...] labeled D1-D2. ??SM 09/26/2023 3:23 PM EST [facility] GI Biopsy 09/18/2023 4:13 PM EST 09/18/2023 4:13 PM EST GI Biopsy 09/18/2023 4:13 PM EST 09/18/2023 4:13 PM EST GI Biopsy 09/18/2023 4:13 PM EST 09/18/2023 4:13 PM EST GI Biopsy 09/18/2023 4:13 PM EST 09/18/2023 4:13 PM EST L Jose Rachel MD PATHOLOGY/CYTOLOGY O RDERABLES [facility] [address] [facility] [place] [address] * COLONOSCOPY (09/18/2023 3:57 PM EST) COLONOSCOPY [facility] Endoscopy ___ Procedure Date: 09/18/2023 3:57 PM ? Patient Name: Kim Funes ? Date of : 1960 ? Age: 63 ? Order #: [id number] ? Instrument Name: [id number]- [id number] ? ___ Procedure: ? Colonoscopy Indications: ? Disease activity assessment of ? chronic ulcerative pancolitis since ? starting updacitinib (Rinvoq) Patient Profile: ? This is a 63 year old female. This ? patient has ulcerative pancolitis, ? is taking upadacitinib and is ? experiencing mild symptoms. Providers: ? Freddy Rachel MD, Sugar Ruffin, ? Juan Kessler Referring MD: ?Marcio Devlin, DO Medicines: ? Midazolam 6.5 [...] preparation was evaluated ? using the BBPS ([place] Bowel ? Preparation Scale) with scores of: [...] ? - Please have labs checked at [facility]. ? - Await pathology results. ? [...] mg/mL) multi-dose injection PRN, Starting on Lorna 24 at 1550, [...] RN)[id number] (Given - Provider: Sugar Ruffin, RN) documented in this encounter Care Teams Acquisition Marketing Coordinator Relationship Specialty Start Date End Date Marcio Devlin DO [address] [place] [address] PCP - General Family Medicine 11/11/17 documented as of this encounter
--- OUTSIDE RECORDS SUMMARY | 2024-10-04 16:04 | XMS_ITS | Encounter Summary ---
Author Organization [facility] [place] [address] Care Team Providers Care Vp Biology Name Role Phone Marcio Devlin DO Primary Care Provider [phone] Reason for Visit * Reason Comments Prior Authorization Rinvoq 15 mg TB24 Encounter Details Date Type Department Care Team (Late st Contact Info) Description 09/03/2023 Specialty [place] [address] Dennis Solorzano, [facility] Social History Tobacco Use Types Packs/Day Years Used Date Smoking Tobacco: Never Smokeless Tobacco: Never Alcohol Use Standard Drinks/Week Comments Yes 0 (1 standard drink = 0.6 oz pure alcohol) once every couple of months or less [facility] Utilities Answer Date Recorded In the past 12 months has [employer], gas, oil, or water [email or web address] threatened to shut off services in your [...] this encounter Progress Notes * Dennis Solorzano, [facility] - 09/03/2023 10:17 AM EST [facility], Medication Prior Authorization Submission Patient: Kim Funes Patient : 1960 Patient Address: [address] [place] [phone] (home) Medication Name: RINVOQ 15 MG TABLET,EXTENDED RELEASE Medication ID: [id number] Subscriber Insurance: [employer] ([facility]) Subscriber Insurance Comment: Fax: Physician: GABE ADEN Physician Comment: Sent Via: Telephone Truong: Ref/Case/PA#: [id number] Medication Strength Frequency Requested: Rinvoq 15 mg TB24 Take One Tablet By Mouth Once Daily Qty/Day Supply: New Start: Renewal Diagnosis & ICD-10 Code: Ankylosing Spondylitis M45.2 Patient Notified: No Submission Notes: - Reauthorization Dennis Solorzano CPHT 09/03/23 10:18 AM * Mai Martinez - 09/03/2023 10:17 AM EST [facility] Special[facility] Pharm[facility], Prior Authorization Approval Medication Name: RINVOQ 15 MG TABLET,EXTENDED RELEASE Medication ID: [id number] Approval Dates: 10/08/2023 to 10/07/2024 Insurance requirements/notes: None Other Notes: None Case/Reference #: [id number] Approval notification Received via: Fax Copay: N/A Copay assistance: None Copay Notes: Insurance mandated Pharmacy: [facility] Fillable at [facility] Specialty Pharmacy: No Patient Notified: Left Voicemessage Pharmacy staff will be reaching out to the patient to inform them of their medication's approval [facility]. If applicable, a pharmacist will speak with the patient to offer our specialty pharmacy services and to arrange delivery of their medication. Mai Martinez 10/08/23 8:54 AM documented in this encounter Plan of Treatment Upcoming Encounters Date Type Department Care Team (Late st Contact Info) Description 10/16/2024 10:00 AM EST Hospital Encounter Non-Invasive [place] [address] Arrived 11/12/2024 8:00 AM EST Appointment Mammography/[place] [address] Gabe Aden MD [facility] [place] [address] 11/30/2024 2:30 PM EDT Office Visit Rheumatology at [place] [phone] Gabe Aden MD [facility] [place] [address] 12/07/2024 2:30 PM EDT TH Visit (TeleHealth) [place] [address] Rosemarie Morrow APRN [facility] [place] [address] documented as of this encounter Visit Diagnoses Not on filedocumented in this encounter Care Teams Vp Biology Relationship Specialty Start Date End Date Marcio Devlin DO [address] [place] [address] PCP - General Family Medicine 11/11/17 documented as of this encounter
--- OUTSIDE RECORDS SUMMARY | 2024-10-04 16:04 | XMS_ITS | Encounter Summary ---
Author Organization [facility] [place] [address] Care Team Providers Care Scaffold Builder Name Role Phone Marcio Devlin DO Primary Care Provider [phone] Reason for Visit * Reason Onset Date Comments Prior Authorization 09/02/2023 Encounter Details Date Type Department Care Team (Late st Contact Info) Description 09/02/2023 Telephone [place] [address] Alana Recio Prior Authorization Social [...] AM EST Hospital Encounter Non-[place] [address] Arrived 11/12/2024 8:00 AM EST Appointment Mammography/DXA at [place] [phone] Gabe Fong MD [facility] [address] [place] [id number] 11/30/2024 2:30 PM EDT Office Visit Rheumatology at [place] [phone] Gabe Fong MD [facility] [address] [place] [id number] 12/07/2024 2:30 PM EDT TH Visit (TeleHealth) [place] [address] Rosemarie Morrow, PATTERNMAKER HAND [facility] [place] [address] documented as of this encounter Visit Diagnoses Not on filedocumented in this encounter Care Teams Scaffold Builder Relationship Specialty Start Date End Date Marcio Devlin DO [facility] [place] [place] [address] PCP - General Family Medicine 11/11/17 documented as of this encounter
--- OUTSIDE RECORDS SUMMARY | 2024-10-04 16:04 | XMS_ITS | Encounter Summary ---
Author Organization [facility] [place] [address] Care Team Providers Care Area Development Consultant Name Role Phone Marcio Devlin DO Primary Care Provider [phone] Encounter Details Date Type Department Care Team [...] Hospital Encounter Non-Invasive Cardiology Lab [place] [address] Arrived 11/12/2024 8:00 AM EST Appointment Mammography/DXA at [address] Gabe Fong MD [facility] [place] [address] 11/30/2024 2:30 PM EDT Office [place] [address] Gabe Fong MD [facility] [place] [address] 12/07/2024 2:30 PM EDT TH Visit (TeleHealth) Gastroenterology at [address] Rosemarie Morrow APRN [facility] [place] [address] documented as of this encounter Visit Diagnoses Not on filedocumented in this encounter Care Teams Area Development Consultant Relationship Specialty Start Date End Date Marcio Devlin DO [address] [place] [address] PCP - General Family Medicine 11/11/17 documented as of this encounter
--- OUTSIDE RECORDS SUMMARY | 2024-10-04 16:04 | XMS_ITS | Encounter Summary ---
Author Organization [facility] [place] [address] Care Team Providers Care Microsoft Bi Developer Name Role Phone Marcio Devlin DO Primary Care Provider [phone] Reason for Visit * Auth/Cert (Routine) Specialty Diagnoses / Procedures Referred By Contac t Referred To Contact Diagnoses Ulcerative (chronic) pancolitis with unspecified complications UC surveillance - Rinvoq started 04/2023. PLEASE BOOK FOR SEP 2023 Procedures PRO COLONOSCOPY, DIAGNOSTIC PRO COLONOSCOPY, BIOPSY PRO COLONOSCOPY, REMV LESN, SNARE PRO ANES, LWR INTESTINE, NOS COLONOSCOPY, DIAGNOSTIC (WRVU 3.26) Dajuan Rachel MD [facility] [place] [address] [facility] Referral ID Status Reason Start Date Expiration Date Visits Re quested Visits Authorized [id number] 1 1 Encounter Details Date Type Department Care Team (Latest Contact Info) Description 09/18/2023 1:40 PM EST - 09/18/2023 5:05 PM EST Hospital Encounter [place] [address] Dajuan Rachel MD [facility] GASTROENTEROLOGY [place], [place] [phone] Discharge Disposition: Home Social History Tobacco Use [...] occurs, please contact your Doctor. Please call [phone] before 8pm Mon-Fri with problems, questions or concerns. If you call after 8pm or on weekends, call the Hospital at [phone] and ask to speak to the Instructor Hairspring plumbing and heating contractor and the pole peeling machine operator helper will contact that person for you. When should you call for help? Call [phone] anytime you think you may need emergency [...] any problems. Where can you learn more? [facility] View your After Visit Summary and more online at [email or web address] If you would like to provide [...] cost to you. Content Version: 12.2 ?? [id number] [employer]. Care instructions adapted under license by [facility]. If you have questions about a medical condition or this instruction, always ask your healthcare professional. [employer] disclaims any warranty or liability for your [...] by mouth daily. SUMAtriptan (IMITREX) 20 mg/actuation [place], Non-Aerosol 1 spray as needed. 11/03/2017 metFORMIN [...] Hepatology Pre-Procedure History and Physical Exam Procedure: [place] Indication: UC restaging and surveillance Patient Active [...] AM EST Hospital Encounter Non-Invasive [place] [address] Arrived 11/12/2024 8:00 AM EST Appointment Mammography/[place] [address] Gabe Fong MD [facility] [place] [address] 11/30/2024 2:30 PM EDT Office [place] [address] Gabe Fong MD [facility] [place] [address] 12/07/2024 2:30 PM EDT TH Visit (TeleHealth) [place] [address] Rosemarie Morrow, SKIP [facility] [place] [address] documented as of this encounter Procedures Procedure Name Priority Date/Time Associated Diagnosis Comments SPECIMEN TO PATHOLOGY Routine 09/18/2023 4:27 PM EST SPECIMEN TO PATHOLOGY Routine 09/18/2023 4:27 PM EST SPECIMEN TO PATHOLOGY Routine 09/18/2023 4:27 PM EST SPECIMEN TO PATHOLOGY Routine 09/18/2023 4:27 PM EST SURGICAL PATHOLOGY REPORT Routine 09/18/2023 4:13 PM EST COLONOSCOPY Routine 09/18/2023 3:57 PM EST Colonoscopy, Biopsy ([id number]) 09/18/2023 3:47 PM EST Ulcerative pancolitis with complication documented in this encounter Results * Specimen to Pathology (09/18/2023 4:27 PM EST) AP Specimen 09/18/2023 4:27 PM EST 09/18/2023 4:27 PM EST Narrative [facility] - 09/18/2023 4:27 PM EST Specimen requisition ordered. ??Separate Pathology report to follow L Jose Rachel MD PATHOLOGY/CYTOLOGY O IRMA Performing Organization Address City/[facility] [place] [address] * Specimen to Pathology (09/18/2023 4:27 PM EST) AP Specimen 09/18/2023 4:27 PM EST 09/18/2023 4:27 PM EST Narrative [facility] - 09/18/2023 4:27 PM EST Specimen requisition ordered. ??Separate Pathology report to follow L Jose Rachel MD PATHOLOGY/CYTOLOGY O IRMA Performing Organization Address [facility] Co de Phone Number [facility] [place] [address] * Specimen to Pathology (09/18/2023 4:27 PM EST) AP Specimen 09/18/2023 4:27 PM EST 09/18/2023 4:27 PM EST Narrative [facility] - 09/18/2023 4:27 PM EST Specimen requisition ordered. ??Separate Pathology report to follow L Jose Rachel MD PATHOLOGY/CYTOLOGY O IRMA Performing Organization Address [facility] Co de Phone Number [facility] [place] [address] * Specimen to Pathology (09/18/2023 4:27 PM EST) AP Specimen 09/18/2023 4:27 PM EST 09/18/2023 4:27 PM EST Narrative [facility] - 09/18/2023 4:27 PM EST Specimen requisition ordered. ??Separate Pathology report to follow L Jose Rachel MD PATHOLOGY/CYTOLOGY O RDERABLES [facility] [place] [id number] * Surgical Pathology Report (09/18/2023 4:13 PM EST) Final Diagnosis [id number] ? Location: 4T; EA; A The signing [...] MD Verified: ??09/26/2023 15:23 ??Pathologist Performed at: ??-[facility] [place], [place] [address] Electrical Intern: Dg Brown MD, FCAP, ??CLIA Certificate: [id number] SPECIMEN(S) SUBMITTED A - nondirected right colon [...] labeled D1-D2. ??SM 09/26/2023 3:[address] [facility] GI Biopsy 09/18/2023 4:13 PM EST 09/18/2023 4:13 PM EST GI Biopsy 09/18/2023 4:13 PM EST 09/18/2023 4:13 PM EST GI Biopsy 09/18/2023 4:13 PM EST 09/18/2023 4:13 PM EST GI Biopsy 09/18/2023 4:13 PM EST 09/18/2023 4:13 PM EST L Jose Rachel MD PATHOLOGY/CYTOLOGY O RDERABLES [facility] [place] [address] [facility] [place] [address] * COLONOSCOPY (09/18/2023 3:57 PM EST) COLONOSCOPY [facility] Endoscopy ___ Procedure Date: 09/18/2023 3:57 PM ? Patient Name: Kim Funes ? Date of : 1960 ? Age: 63 ? Order #: [id number] ? Instrument Name: EC-760R- [id number] ? ___ Procedure: ? Colonoscopy Indications: ? [...] preparation was evaluated ? using the BBPS ([place] Bowel ? Preparation Scale) with scores of: [...] ? - Please have labs checked at [facility]. ? - Await pathology results. ? [...] RN) documented in this encounter Care Teams Microsoft Bi Developer Relationship Specialty Start Date End Date Marcio Devlin DO [address] [place], [place] [address] [address] PCP - General Family Medicine 11/11/17 documented as of this encounter
--- OUTSIDE RECORDS SUMMARY | 2024-10-04 16:04 | XMS_ITS | Encounter Summary ---
Author Organization [facility] [place] [address] Care Team Providers Care Coordinator Of Library Services Name Role Phone Marcio Devlin DO Primary Care Provider [phone] Encounter Details Date Type Department Care Team (Latest Contact Info) Description 10/07/2023 10:00 AM EST Office [place] [phone] Gabe Fong MD [facility] [place] [address] High risk medication use; Medication monitoring encounter; [...] however she has been talking with her insurance law specialist about getting in for repeat colonoscopy but [...] Hospital Encounter Non-Invasive Cardiology Lab [place] [phone] Arrived 11/12/2024 8:00 AM EST Appointment Mammography/[place] [address] Gabe Fong MD [facility] [place] [address] 11/30/2024 2:30 PM EDT Office Visit Rheumatology at [place] [phone] Gabe Fong MD [facility] [place] [address] 12/07/2024 2:30 PM EDT TH Visit (TeleHealth) Gastroenterology at [place] [phone] Rosemarie Morrow, SKIP [facility] [place] [address] documented as of this encounter Visit Diagnoses [...] unspecified documented in this encounter Care Teams Coordinator Of Library Services Relationship Specialty Start Date End Date Marcio Devlin DO [address] [place] [address] PCP - General Family Medicine 11/11/17 documented as of this encounter
--- OUTSIDE RECORDS SUMMARY | 2024-10-04 16:04 | XMS_ITS | Encounter Summary ---
Author Organization [facility] Address [facility] [place] [place] [address] Care Team Providers Care Sales Support Rep Name Role Phone Marcio Devlin DO Primary Care Provider Reason for Visit * Auth/Cert (Routine) Specialty Diagnoses / Procedures Referred By Contac t Referred To Contact Diagnoses Complete heart block Bradycardia Procedures EMERGENCY IPI Elle Tristan MD [facility] [place] [address] [facility] Referral ID Status Reason Start Date Expiration Date Visits Re quested Visits Authorized [id number] 1 1 Encounter Details Date Type Department Care Team (Late st Contact Info) Description 10/20/2023 9:01 AM EST - 10/22/2023 11:16 AM EST [place] [address] Elle Tristan MD [facility] [place] [address] Glenn Miranda MD [facility] [place] [address] Humberto Lynn MD [facility] [place] [address] CHB (complete heart block); Folliculitis Discharge Disposition: Home Social History Tobacco Use Types Packs/Day Years Used Date Smoking Tobacco: Never Smokeless Tobacco: Never Alcohol Use Standard Drinks/Week Comments Yes 0 (1 standard drink = 0.6 oz pure alcohol) once every couple of months or less [facility] Utilities Answer Date Recorded In [...] Kim Perez Patient Age: 63 y.o. Language: Italian Race: White Ethnicity: Not nor Admit date: 10/20/2023 Discharge date and time: 10/22/2023 Attending Physician: Humberto Lynn MD Discharge Physician: Humberto Lynn MD ID: Kim Perez is a 63 y.o. female w/ PMH of ulcerative colitis, ankylosing spondylitis, HTN and HLD who presented to [facility] for symptomatic bradycardia in the setting of [...] spondylitis. PCP Contact Information: Marcio Devlin DO [address] [facility] [place] [address] Pending Studies and Lab Data: none No [...] 2020 - severe involvement of L colon, [id number]-[id number] involvement of transverse and R colon. Worse compared to last exam. SSA at hepatic flexure Adalimumab level (mercer) was 12.7 Switched to Stelara ( 03/21/21, first infusion dose) d/t Lost of response to Humira. Stopped Uceris and sulfasalazine in January 2021. [place] 09/2022 - tubular featureless L colon with [...] , patient went to her PCP at [facility] internal medicine where she was evaluated [...] and request was made to transfer to [facility] for ongoing care and possible permanent pacemaker evaluation. Upon interview in the [facility], patient resting comfortably in bed [...] questions please contact the health home care music therapist that requested your imaging first. Electronically signed by: Liang Padilla MD, [facility] ([phone]), at 10/22/2023 8:51 AM XR Chest One View (Exam End: 10/21/2023 8:35 PM) Impression No acute pulmonary findings Thank you for letting us participate in the care of this patient. If you are a health care provider and have any questions regarding this report, please contact the number below. For patients who have questions please contact the health home care music therapist that requested your imaging first. Discharge Conditions/Prognosis: [...] 10 mg Refills: 0 SUMAtriptan 20 mg/actuation [place], Non-Aerosol Commonly known as: IMITREX 1 spray [...] 10 mg Refills: 0 SUMAtriptan 20 mg/actuation [place], Non-Aerosol Commonly known as: IMITREX 1 spray [...] Center 11/04/2023 11:00 AM Rosemarie Morrow APRN [facility] GASTRO [facility] 01/06/2024 1:00 PM Gabe Fong MD [facility] RHEUM [facility] Your Inpatient Medical Team at [facility] Name(s) of your inpatient provider(s): Humberto Lynn MD Your Primary Care Provider: Marcio Devlin DO [phone] For questions regarding this document or issues relating to this hospitalization on the Medical Service, please contact your inpatient physician through the [facility] Chemical Sales Representative . Issues afterhours and on weekends will be handled by the Hospitalist staff on-call. FINAL ICD/PACEMAKER RECOMMENDATIONS: 1. Standard post implant discharge instructions (see below): 2. Medications as listed above. 3. You may use ice packs over the incision. Make sure to use a cloth worker (such as a towel) in between the [...] F. The office scheduling phone number is [phone]. ARM MOVEMENT RESTRICTIONS POST-IMPLANT For 4-6 Weeks: [...] product, please call the device clinic at [phone]. General Instructions None Future Appointments and Orders Future Appointments and Orders Future Appointments Provider Department Dept Phone 11/04/2023 11:00 AM Rosemarie Morrow APRN Gastroenterology at [facility] Arrive at: Home [phone] To view instructions for your video visit, click here, or visit this website: [email or web address] If you have not previously downloaded the [facility] patient portal software, RxApps, or the [employer] maria c, please do so by clicking [...] see: How to Disable Pop-Up Block for [facility] Video Visits Zoom asking for a meeting password? - Exit out of the Zoom program and try the link again 11/04/2023 1:00 PM Lorri Mckinney PA Cardiology at [facility] Arrive at: Inbound Customer Service Agent Area 4A [phone] 01/06/2024 1:00 PM Gabe Fong MD Rheumatology at [facility] Arrive at: Inbound Customer Service Agent Area 5C [phone] Inpatient Provider Contact Information: Clarence Pearl MD [...] 10 mg Refills: 0 SUMAtriptan 20 mg/actuation [place], Non-Aerosol Commonly known as: IMITREX 1 spray [...] Center 11/04/2023 11:00 AM Rosemarie Morrow APRN [facility] GASTRO [facility] 01/06/2024 1:00 PM Gabe Fong MD [facility] RHEUM [facility] Your Inpatient Medical Team at [facility] Name(s) of your inpatient provider(s): Humberto Lynn MD Your Primary Care Provider: Marcio Devlin DO [phone] For questions regarding this document or issues relating to this hospitalization on the Medical Service, please contact your inpatient physician through the [facility] Chemical Sales Representative . Issues afterhours and on weekends will be handled by the Hospitalist staff on-call. FINAL ICD/PACEMAKER RECOMMENDATIONS: 1. Standard post implant discharge instructions (see below): 2. Medications as listed above. 3. You may use ice packs over the incision. Make sure to use a cloth worker (such as a towel) in between the [...] F. The office scheduling phone number is [phone]. ARM MOVEMENT RESTRICTIONS POST-IMPLANT For 4-6 Weeks: [...] product, please call the device clinic at [phone]. documented in this encounter Medications at Time [...] by mouth daily. SUMAtriptan (IMITREX) 20 mg/actuation [place], Non-Aerosol 1 spray as needed. 11/03/2017 metFORMIN [...] PCP: Marcio Devlin DO PCP phone number: [phone] Date of Admission: 10/20/2023 ( Hospital Day [...] in the last 7068 hours. Invalid input(s): [id number] Recent Labs 10/21/23 0754 10/20/23 2106 10/20/23 [...] service for ongoing care. Glenn Miranda MD, [facility] Staff Ethnographic Materials Conservator * Elle Tristan MD - 10/20/2023 1:46 [...] documented in this encounter H&P Notes * Humebrto Lynn MD - 10/21/2023 4:09 PM EST [...] , patient went to her PCP at [facility] internal medicine where she was evaluated [...] and request was made to transfer to [facility] for ongoing care and possible permanent pacemaker evaluation. Upon interview in the [facility], patient resting comfortably in bed without concern. She states that shehas ongoing fatigue and weakness but denies lightheadedness or dizziness. Hospital Course to date After admission to the [facility], patient's home beta-rosita was discontinued. [...] 2020 - severe involvement of L colon, daxx-pa-fizsdfvf involvement of transverse and R colon. Worse compared to last exam. SSA at hepatic flexure Adalimumab level (garcía) was 12.7 Switched to Stelara ( 03/21/21, first infusion dose) d/t Lost of response to Humira. Stopped Uceris and sulfasalazine in January 2021. [place] 09/2022 - tubular featureless L colon with [...] in the last 7068 hours. Invalid input(s): [id number] Heme: No results for input(s): LDH, HAPTOGLOBIN, [...] PCP: Marcio Devlin DO PCP phone number: [phone] Date of Admission: 10/20/2023 ( Hospital Day [...] , patient went to her PCP at [facility] internal medicine where she was evaluated [...] and request was made to transfer to [facility] for ongoing care and possible permanent pacemaker evaluation. Upon interview in the [facility], patient resting comfortably in bed [...] WITH BX performed by YAQUELIN ESTRADA at [facility] ENDOSCOPY PRO COLONOSCOPY, BIOPSY N/A 03/04/2017 COLONOSCOPY FLEXIBLE, WITH BX (WRVU 3.66) performed by Raúl Austin MD at [facility] ENDOSCOPY PRO COLONOSCOPY, BIOPSY N/A 11/09/2019 COLONOSCOPY FLEXIBLE, WITH BX (WRVU 3.66) performed by Froilan Sahni MD at [facility] ENDOSCOPY PRO COLONOSCOPY, BIOPSY N/A 12/19/2020 COLONOSCOPY FLEXIBLE, WITH BX (WRVU 3.66) performed by Dajuan Rachel MD at [facility] ENDOSCOPY PRO COLONOSCOPY, BIOPSY N/A 09/24/2022 COLONOSCOPY FLEXIBLE, WITH BX (WRVU 3.66) performed by Dajuan Rachel MD at [facility] ENDOSCOPY PRO COLONOSCOPY, BIOPSY N/A 09/18/2023 COLONOSCOPY FLEXIBLE, WITH BX (WRVU 3.56) performed by Dajuan Rachel MD at [facility] ENDOSCOPY PRO COLONOSCOPY, DIAGNOSTIC N/A 11/09/2019 COLONOSCOPY, DIAGNOSTIC performed by Froilan Sahni MD at [facility] ENDOSCOPY PRO COLONOSCOPY, REMV LESN, SNARE 01/02/2011 COLONOSCOPY, POLYPECTOMY, REMOVAL LESION BY SNARE performed by YAQUELIN ESTRADA at [facility] ENDOSCOPY PRO COLONOSCOPY, REMV LESN, SNARE N/A 03/04/2017 COLONOSCOPY, POLYPECTOMY, REMOVAL LESION BY SNARE (WRVU 4.67) performed by Raúl Austin MD at [facility] ENDOSCOPY PRO COLONOSCOPY, REMV LESN, SNARE N/A 09/24/2022 COLONOSCOPY, POLYPECTOMY, REMOVAL LESION BY SNARE (WRVU 4.67) performed by Dajuan Rachel MD at [facility] ENDOSCOPY PRO COMBINED ANT/POST COLPORRHAPHY W CYSTO N/A 03/10/2018 COLPORRHAPHY ANTERIOR-POSTERIOR; INC CYSTOURETHROSCOPY (WRVU 14.44) performed by Liang Fong MD at [facility] MAIN OR PRO REVAGINAL PROLAPSE, UTEROSACRAL N/A 03/10/2018 COLPOPEXY, VAGINAL, INTRAPERITONEAL APPROACH (WRVU 11.66) performed by [facility]ang [facility] SLING OPER STRES INCONTINENCE N/A 03/10/2018 URETHRAL SUSPENSION, SLING\FASCIA OR SYNTHETIC (WRVU 12.13) performed by Liang Fong MD at [facility] MAIN OR PRO VAG HYST, RMV TUBE/OVARY N/A 03/10/2018 HYSTERECTOMY, VAGINAL, REMOVAL TUBE(S) & OR OVARY(S) (WRVU 15.94) performed by Liang Fong MD at [facility] MAIN OR SALPINGECTOMY XR FLUORO INJECTION DRAINAGE JOINT LG RIGHT Right 03/09/2019 XR Fluoro Guided Joint Injection Large Right 03/09/2019 [facility] RAD XRAY Family History Family History [...] Blood Gas) No results for input(s): PHART, AOP6VUG, PO2ART, LOB9JTU, LACTATEVEN, LPK3JTQ, PFRATIOART2 in the last 168 hours. VBG (Venous Blood Gas) No results for input(s): PHVEN, FZQ0SII, PO2VEN, XNV2ZUJ, LACTATEVEN in the last 168 hours. Mixed Venous Sat No results for input(s): K9PSSR2 in the last 168 hours. Intake/Output Summary [...] in the last 7068 hours. Invalid input(s): [id number] No results for input(s): POCGLU in the last 168 hours. Heme No results for input(s): LDH, HAPTOGLOBIN, URICACID in the last 168 hours. ABG (Arterial Blood Gas) No results for input(s): PHART, QUN4ZMG, PO2ART, ONH7RCA, LACTATEVEN, EWQ1CXU, PFRATIOART2 in the last 168 hours. VBG (Venous Blood Gas) No results for input(s): PHVEN, AZM6HVP, PO2VEN, BDL6BAV, LACTATEVEN in the last 168 hours. Mixed Venous Sat No results for input(s): Q0JKAH6 in the last 168 hours. Microbiology: Microbiology [...] Jean Roca, DO Internal Medicine, PGY-1 Cardiology, [facility] 10/20/23 2:14 PM * Jason Castro MD - 10/20/2023 10:39 AM EST Inpatient Cardiac Electrophysiology- Initial Consultation Date of Consultation: 10/20/2023 Admit Date: 10/20/2023 Patient Location: [facility] Attending Ethnographic Materials Conservator: Riley Reason for Consult: Complete Heart Block [...] by mouth daily. SUMAtriptan (IMITREX) 20 mg/actuation [place], Non-Aerosol 1 spray as needed. metFORMIN (GLUCOPHAGE) [...] History: 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 Gera Martell MD Cardiac Electrophysiology Fellow [facility] Pager [phone] 10/20/2023 I met with the patient today [...] above plan. Dr. 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 Current Living Arrangements: home/apartment/condo. Accessibility Concerns:house 1 floor with 3 LISS. Current Functional Ability: Independent, Assistive Person DME used at home: none DME Needed at Discharge: none Patient is insured through: Primary Insurance: [facility] Payor: [facility] / Plan: [facility] PPO / Product Type: *No Product type* / Secondary Insurance: N/A Prescription Coverage: Yes This plan was formulated with input from patient and team. All are in agreement with plan. GHADA Shah, RN Inpatient Vacuum Metalizing Supervisor- Cardiology Office of Care Management Pager #: [phone] * Consult Note - Chepe Russo MD - 10/22/2023 8:00 AM EST Images from the original note were not included. [facility] [place] [address] CARDIAC ELECTROPHYSIOLOGY CONSULT NOTE Patient: Kim Perez [...] iritis Escalated to weekly Humira 11/2019. ADA (mercer) from 6 q 2wk to 12.7 qwk, as well as BID SSZ Colonoscopy Oct 2019: normal rectum, mod-severe inflammation and narrowing from 6-25 cm from the anus, normal remainder of colon. Path: mild active chronic colitis in ac/tc/dc/sc, severe active colitis with ulceration in proximal rectum Colonoscopy December 2020 - severe involvement of L colon, xhkm-me-dygovigu involvement of transverse and R colon. Worse compared to last exam. SSA at hepatic flexure Adalimumab level (mercer) was 12.7 Switched to Stelara ( 03/21/21, first infusion dose) d/t Lost of response to Humira. Stopped Uceris and sulfasalazine in January 2021. [place] 09/2022 - tubular featureless L colon with [...] She underwent placement of a left sided [employer] dual chamber pacemaker on 10/21/23. Procedure [...] expected position. No pneumothorax. 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 Device [...] page if further consultation required. Chepe Russo Recruitment Internship [id number] Associated attestation - Dilip Berumen MD - 10/22/2023 11:33 AM EST Post-op day # 1 s/p dual-chamber pacemaker for symptomatic complete heart block . Patient feels much, much better. Post implant interrogation - excellent RA and RV parameters. CXR- good and stable lead positions, no sign of PTX. OK to discharge patient from EP standpoint. Will arrange ~[facility] and ~ 91 day check at [facility]. Dilip Berumen MD, PhD, [facility] Cardiac Electrophysiology 10/22/2023 11:32 AM * [...] surrogate would be surrogate decision maker per [place] surrogate decision making law. (Only good for 180 days) Any patient receiving care in [place] must abide by [place] law. The hierarchy for surrogate decision making [...] (i) The agent with financial power of deputy attorney general or a conservator appointed in accordance with RSA 464-A. (j) The guardian of the patient???s estate. 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) Prior [...] Current DME: none Home Address confirmed as: [address] [place] [phone] Social & Family Supports: All names listed below confirmed with patient as current and correct Extended Emergency Contact Information Primary Emergency Contact: Lucien Perez Address: [address] [place] [phone] [facility] Mobile Relation: Spouse Secondary Emergency Contact: Olivia [...] points: Addiction likely Health/Prescription Coverage: Primary Insurance: [facility] [facility] Payor: [facility] / Plan: [facility] PPO / Product Type: *No Product type* / Secondary Insurance: N/A ; Prescription Coverage: Yes Preferred Pharmacy: [id number] - [place], [place] - [address] [facility] [address] [address] [facility] - [place], [place] - [address] [facility] [address] [facility] [address] [place] Status: Patient is a : No Primary Care Provider confirmed: Marcio Devlin DO [phone] Patient/Caregiver Goals of Treatment: return home with [...] AM EST Hospital Encounter Non-[place] [phone] Arrived 11/12/2024 8:00 AM EST Appointment Mammography/[place] [phone] Gabe Fong MD [facility] [address] [place] [address] 11/30/2024 2:30 PM EDT Office Visit Rheumatology at [place] [phone] Gabe Fong MD [facility] [place] [address] 12/07/2024 2:30 PM EDT TH Visit (TeleHealth) Gastroenterology at [facility] [place] [address] Rosemarie Morrow, SKIP [facility] [place] [address] documented as of this encounter Procedures Procedure [...] questions please contact the health home care music therapist that requested your imaging first. ? Electronically signed by: Liang Padilla MD, [facility] ??([phone]), at 10/22/2023 8:51 AM Narrative 10/22/2023 8:51 [...] have questions please contactthe health home care music therapist that requested your imaging first. Electronically signed by: Liang Padilla MD, [facility]([phone]), at 10/22/2023 8:51 AM Dilip Berumen MD IMG DX ORDERABLES * (ABNORMAL) Differential, Automated (10/22/2023 2:41 AM EST) Neutrophil % 71.9 % [facility] Neutrophil Absolute 6.59(H) 1.70 - 6.10 x10(3)/mc L [facility] Lymph % 19.1 % [facility] Lymphocytes Abs 1.8 0.9 - 3.2 x10(3)/[facility] Monocyte % 7.9 % [facility] Monocyte Abs 0.7 0.3 - 0.9 x10(3)/[facility] Eos % 0.7 % [facility] Eosinophils Abs 0.1 0.0 - 0.4 x10(3)/[facility] Basophil % 0.2 % [facility] Baso Absolute 0.0 0.0 - 0.1 x10(3)/[facility] Immature Gran % 0.20 % [facility] Comment: Immature granulocytes(IG's)percentage and absolute count will include metamyelocytes, myelocytes, and promyelocytes. Blood smears from CBCs yielding IG's will be scanned manually for concordance. If this scan disagrees with the automated IG or if promyelocytes are noted, a manual differential will be performed. Immature Gran Absolute 0.02 0.00 - 0.04 x10(3)/[facility] Blood 10/22/2023 2:41 AM EST 10/22/2023 2:41 AM EST Narrative Resulting Agency Comment Spec In Lab Clifton Segundo MD HEMATOLOGY ORDERABLE S Performing Organization Address City/State/[facility] Co de Phone Number [facility] [place] [address] * (ABNORMAL) Hemogram (10/22/2023 2:41 AM EST) White Blood Cell 9.2 4.0 - 9.5 x10(3)/[facility] Red Blood Cell 4.11 4.00 - 5.21 x10(6)/[facility] Hemoglobin 12.9 11.7 - 15.5 g/dL [facility] Hematocrit 38.4 35.7 - 45.8 % [facility] Mean Cell Volume 93.4 82.6 - 94.4 fL [facility] Mean Cell Hemoglobin 31.4 27.1 - 32.0 pg [facility] Mean Cell Hemoglobin Concentration 33.6 31.7 - 35.0 g/dL [facility] Platelet 190 145 - 357 x10(3)/mc L [facility] RDW Standard Deviation 48.7(H) 37.0 - 46.0 fL [facility] RDW coefficient of variation 14.1 11.5 - 14.1 % [facility] Mean Platelet Volume 10.5 7.6 - 12.9 fL [facility] NRBC% auto 0.0 % [facility] NRBC Absolute 0.000 0.000 - 0.000 x10(3)/mc L [facility] Blood 10/22/2023 2:41 AM EST 10/22/2023 2:41 AM EST Narrative Resulting Agency Comment Spec In Lab Clifton Segundo MD HEMATOLOGY ORDERABLE S [facility] [place] [address] * (ABNORMAL) Basic Metabolic Panel (non-fasting) (10/22/2023 2:41 AM EST) Glucose 115 65 - 199 mg/dL [facility] Comment:Diabetes: >=200 mg/d L plus symptoms Blood Urea Nitrogen 21(H) 8 - 18 mg/dL [facility] Creatinine 1.12 0.70 - 1.20 mg/dL [facility] Sodium 142 135 - 145 mmol/L [facility] Potassium 3.8 3.5 - 5.0 mmol/L [facility] Comment: Please note: ??Patients with WBC >100,000 may have falsely elevated Potassium levels. ??For accurate Potassium quantification in these patients send serum separator tube (gold top) for subsequent determinations. ??Contact the Clinical Chemistry Laboratory if there are any questions. Chloride 107 98 - 107 mmol/L [facility] Carbon Dioxide 23 22 - 31 mmol/L [facility] Anion Gap 12 5 - 15 mmol/L [facility] Calcium 9.1 8.5 - 10.5 mg/dL [facility] Est Glomerular Filtration Rate 56(L) >=60 mL/min/1. 73 m?? [facility] Comment: This patient's estimated GFR [...] Miranda MD CHEMISTRY ORDERABLES Performing Organization Address [facility] Co de Phone Number [facility] [place] [address] * Phosphorus (10/22/2023 2:41 AM EST) Phosphorus 4.3 2.5 - 4.5 mg/dL [facility] Blood 10/22/2023 2:41 AM EST 10/22/2023 2:41 AM EST Narrative Resulting Agency Comment Spec In Lab Glenn Miranda MD CHEMISTRY ORDERABLES Performing Organization Address [facility] Co de Phone Number [facility] [place] [address] * (ABNORMAL) Magnesium (10/22/2023 2:41 AM EST) Magnesium 0.66(L) 0.69 - 1.07 mmol/L [facility] Blood 10/22/2023 2:41 AM EST 10/22/2023 2:41 AM EST Narrative Resulting Agency Comment Spec In Lab Glenn Miranda MD CHEMISTRY ORDERABLES Performing Organization Address [facility] Co de Phone Number [facility] [place] [address] * POCT Glucose (10/21/2023 9:43 PM EST) Glucose, POC 131 65 - 199 mg/dL [facility] Comment: Supplemental ranges: <140 mg/dL before meals <180 mg/dL all other times of the day Blood 10/21/2023 9:43 PM EST 10/21/2023 9:43 PM EST Humberto Lynn MD POINT OF CARE TEST ORDERABLES Performing Organization Address City/State/[facility] [place] [address] * XR Chest One View (10/21/2023 8:35 [...] questions please contact the health home care music therapist that requested your imaging first. ? Electronically signed by: Liang Padilla MD, [facility] ??([phone]), at 10/22/2023 8:45 AM Narrative 10/22/2023 8:45 [...] have questions please contactthe health home care music therapist that requested your imaging first. Electronically signed by: Liang Padilla MD, [facility]([phone]), at 10/22/2023 8:45 AM Humberto Lynn MD IMG DX ORDERABLES * POCT Glucose (10/21/2023 3:33 PM EST) Glucose, POC 75 65 - 199 mg/dL [facility] Comment: Supplemental ranges: <140 mg/dL before meals <180 mg/dL all other times of the day Blood 10/21/2023 3:33 PM EST 10/21/2023 3:33 PM EST Glenn Miranda MD POINT OF CARE TEST O RDERABLES [facility] [place] [address] * ELECTROPHYSIOLOGY PROCEDURE (10/21/2023 3:04 PM EST) Anatomical Region Laterality Modality Other Narrative 10/24/2023 12:54 PM EST Table formatting from the original result was not included. Images from the original result were not included. Field Manager: Dilip Berumen MD Fellow: Gera Martell [...] the entire procedure. Lead and Generator Data Prosthetics Lab Technician Model # Serial # Generator [employer] [id number] Atrial Lead [employer] [id number] Ventricular Lead [employer] [id number] Pace / Sense Data Sensed wave (mV) [...] of this procedure. Dilip Berumen MD, PhD, [facility] Cardiac Electrophysiology Dilip Berumen MD EP PROCEDURE ORDERAB LES * POCT Glucose (10/21/2023 11:31 AM EST) Glucose, POC 104 65 - 199 mg/dL [facility] Comment: Supplemental ranges: <140 mg/dL before meals <180 mg/dL all other times of the day Blood 10/21/2023 11:3 1 AM EST 10/21/2023 11:31 AM EST Glenn Miranda MD POINT OF CARE TEST O RDERABLES [facility] [place] [address] * (ABNORMAL) Basic Metabolic Panel (non-fasting) (10/21/2023 7:55 AM EST) Glucose 114 65 - 199 mg/dL [facility] Comment:Diabetes: >=200 mg/d L plus symptoms Blood Urea Nitrogen 23(H) 8 - 18 mg/dL [facility] Creatinine 1.18 0.70 - 1.20 mg/dL [facility] Sodium 143 135 - 145 mmol/L [facility] Potassium 4.2 3.5 - 5.0 mmol/L [facility] Comment: Please note: ??Patients with WBC >100,000 may have falsely elevated Potassium levels. ??For accurate Potassium quantification in these patients send serum separator tube (gold top) for subsequent determinations. ??Contact the Clinical Chemistry Laboratory if there are any questions. Chloride 111(H) 98 - 107 mmol/L [facility] Carbon Dioxide 21(L) 22 - 31 mmol/L [facility] Anion Gap 11 5 - 15 mmol/L [facility] Calcium 10.1 8.5 - 10.5 mg/dL [facility] Est Glomerular Filtration Rate 52(L) >=60 mL/min/1. 73 m?? [facility] Comment: This patient's estimated GFR [...] In Lab Glenn Miranda MD CHEMISTRY ORDERABLES [facility] [place] [address] * POCT Glucose (10/21/2023 7:54 AM EST) Glucose, POC 107 65 - 199 mg/dL [facility] Comment: Supplemental ranges: <140 mg/dL before meals <180 mg/dL all other times of the day Blood 10/21/2023 7:54 AM EST 10/21/2023 7:54 AM EST Glenn Miranda MD POINT OF CARE TEST O RDERABLES Performing Organization Address City/[facility]/ZIP Co de Phone Number [place] [phone] * Differential, Automated (10/21/2023 6:04 AM EST) Neutrophil % 56.2 % [facility] Neutrophil Absolute 3.81 1.70 - 6.10 x10(3)/[facility] [address] [facility] Lymph % 33.4 % [facility] Lymphocytes Abs 2.3 0.9 - 3.2 x10(3)/[facility] [address] [facility] Monocyte % 9.0 % [facility] Monocyte Abs 0.6 0.3 - 0.9 x10(3)/[facility] [address] [facility] Eos % 0.9 % [facility] Eosinophils Abs 0.1 0.0 - 0.4 x10(3)/[facility] [address] [facility] Basophil % 0.4 % [facility] Baso Absolute 0.0 0.0 - 0.1 x10(3)/[facility] [address] [facility] Immature Gran % 0.10 % [facility] Comment: Immature granulocytes(IG's)percentage and absolute count will include metamyelocytes, myelocytes, and promyelocytes. Blood smears from CBCs yielding IG's will be scanned manually for concordance. If this scan disagrees with the automated IG or if promyelocytes are noted, a manual differential will be performed. Immature Gran Absolute 0.01 0.00 - 0.04 x10(3)/[facility] [address] [facility] Blood 10/21/2023 6:04 AM EST 10/21/2023 6:21 AM EST Narrative Resulting Agency Comment Spec In Lab Clifton Segundo MD HEMATOLOGY ORDERABLE S Performing Organization Address [facility] [place] [address] * (ABNORMAL) Hemogram (10/21/2023 6:04 AM EST) White Blood Cell 6.8 4.0 - 9.5 x10(3)/mc L [facility] Red Blood Cell 4.06 4.00 - 5.21 x10(6)/mc L [facility] Hemoglobin 12.6 11.7 - 15.5 g/dL [facility] Hematocrit 38.1 35.7 - 45.8 % [facility] Mean Cell Volume 93.8 82.6 - 94.4 fL [facility] Mean Cell Hemoglobin 31.0 27.1 - 32.0 pg [facility] Mean Cell Hemoglobin Concentration 33.1 31.7 - 35.0 g/dL [facility] Platelet 211 145 - 357 x10(3)/ L [facility] RDW Standard Deviation 50.4(H) 37.0 - 46.0 fL [facility] RDW coefficient of variation 14.5(H) 11.5 - 14.1 % [facility] Mean Platelet Volume 10.9 7.6 - 12.9 fL [facility] NRBC% auto 0.0 % [facility] NRBC Absolute 0.000 0.000 - 0.000 x10(3)/ L [facility] Blood 10/21/2023 6:04 AM EST 10/21/2023 6:21 AM EST Narrative Resulting Agency Comment Spec In Lab Clifton Segundo MD HEMATOLOGY ORDERABLE S [facility] [place] [address] * Phosphorus (10/21/2023 6:04 AM EST) Phosphorus 4.5 2.5 - 4.5 mg/dL [facility] Comment:result rechecked-EL Blood 10/21/2023 6:04 AM EST 10/21/2023 6:21 AM EST Narrative Resulting Agency Comment Spec In Lab Glenn Miranda MD CHEMISTRY ORDERABLES [facility] [place] [address] * Magnesium (10/21/2023 6:04 AM EST) Magnesium 0.70 0.69 - 1.07 mmol/L [facility] Blood 10/21/2023 6:04 AM EST 10/21/2023 6:21 AM EST Narrative Resulting Agency Comment Spec In Lab Glenn Miranda MD CHEMISTRY ORDERABLES [facility] [place] [address] * POCT Glucose (10/20/2023 9:06 PM EST) Glucose, POC 116 65 - 199 mg/dL [facility] Comment: Supplemental ranges: <140 mg/dL before meals <180 mg/dL all other times of the day Blood 10/20/2023 9:06 PM EST 10/20/2023 9:06 PM EST Elle Tristan MD POINT OF CARE T EST ORDERABLES Performing Organization Address [facility] Co de Phone Number [facility] [place] [address] * POCT Glucose (10/20/2023 4:50 PM EST) Glucose, POC 94 65 - 199 mg/dL [facility] Comment: Supplemental ranges: <140 mg/dL before meals <180 mg/dL all other times of the day Blood 10/20/2023 4:50 PM EST 10/20/2023 4:50 PM EST Elle Tristan MD POINT OF CARE T EST ORDERABLES Performing Organization Address City/[facility] Co de Phone Number [facility] [place] [address] * Differential, Automated (10/20/2023 1:40 PM EST) Neutrophil % 42.4 % [facility] Neutrophil Absolute 2.79 1.70 - 6.10 x10(3)/mcL [facility] Lymph % 48.1 % [facility] Lymphocytes Abs 3.2 0.9 - 3.2 x10(3)/[facility] [address] [facility] Monocyte % 8.2 % [facility] Monocyte Abs 0.5 0.3 - 0.9 x10(3)/[facility] [address] [facility] Eos % 0.8 % [facility] Eosinophils Abs 0.0 0.0 - 0.4 x10(3)/[facility] [address] [facility] Basophil % 0.3 % [facility] Baso Absolute 0.0 0.0 - 0.1 x10(3)/[facility] [address] [facility] Immature Gran % 0.20 % [facility] Comment: Immature granulocytes(IG's)percentage and absolute count will include metamyelocytes, myelocytes, and promyelocytes. Blood smears from CBCs yielding IG's will be scanned manually for concordance. If this scan disagrees with the automated IG or if promyelocytes are noted, a manual differential will be performed. Immature Gran Absolute 0.01 0.00 - 0.04 x10(3)/[facility] Blood 10/20/2023 1:40 PM EST 10/20/2023 1:57 PM EST Narrative Resulting Agency Comment Spec In Lab Clifton Segundo MD HEMATOLOGY ORDERABLE S Performing Organization Address City/State/[facility] Co de Phone Number [facility] [place] [address] * (ABNORMAL) Hemogram (10/20/2023 1:40 PM EST) White Blood Cell 6.6 4.0 - 9.5 x10(3)/mc L [facility] Red Blood Cell 4.08 4.00 - 5.21 x10(6)/mc L [facility] Hemoglobin 12.6 11.7 - 15.5 g/dL [facility] Hematocrit 37.4 35.7 - 45.8 % [facility] Mean Cell Volume 91.7 82.6 - 94.4 fL [facility] Mean Cell Hemoglobin 30.9 27.1 - 32.0 pg [facility] Mean Cell Hemoglobin Concentration 33.7 31.7 - 35.0 g/dL [facility] Platelet 228 145 - 357 x10(3)/mc L [facility] RDW Standard Deviation 48.5(H) 37.0 - 46.0 fL [facility] RDW coefficient of variation 14.3(H) 11.5 - 14.1 % [facility] Mean Platelet Volume 10.9 7.6 - 12.9 fL [facility] NRBC% auto 0.0 % [facility] NRBC Absolute 0.000 0.000 - 0.000 x10(3)/mc L [facility] Blood 10/20/2023 1:40 PM EST 10/20/2023 1:57 PM EST Narrative Resulting Agency Comment Spec In Lab Clifton Segundo MD HEMATOLOGY ORDERABLE S Performing Organization Address City/[facility]/ZIP Co de Phone Number [facility] [place] [address] * (ABNORMAL) Phosphorus (10/20/2023 1:40 PM EST) Phosphorus 1.6(L) 2.5 - 4.5 mg/dL [facility] Blood 10/20/2023 1:40 PM EST 10/20/2023 1:57 PM EST Narrative Resulting Agency Comment Spec In Lab Elle Tristan MD CHEMISTRY ORDER EDUAR Performing Organization Address [facility] Co de Phone Number [facility] [place] [address] * Magnesium (10/20/2023 1:40 PM EST) Magnesium 0.71 0.69 - 1.07 mmol/L [facility] Blood 10/20/2023 1:40 PM EST 10/20/2023 1:57 PM EST Narrative Resulting Agency Comment Spec In Lab Elle Tristan MD CHEMISTRY ORDER EDUAR Performing Organization Address [facility] Co de Phone Number [facility] [place] [address] * (ABNORMAL) Basic Metabolic Panel (non-fasting) (10/20/2023 1:40 PM EST) Glucose 92 65 - 199 mg/dL [facility] Comment:Diabetes: >=200 mg/d L plus symptoms Blood Urea Nitrogen 23(H) 8 - 18 mg/dL [facility] Creatinine 1.04 0.70 - 1.20 mg/dL [facility] Sodium 145 135 - 145 mmol/L [facility] Potassium 3.9 3.5 - 5.0 mmol/L [facility] Comment: Please note: ??Patients with WBC >100,000 may have falsely elevated Potassium levels. ??For accurate Potassium quantification in these patients send serum separator tube (gold top) for subsequent determinations. ??Contact the Clinical Chemistry Laboratory if there are any questions. Chloride 110(H) 98 - 107 mmol/L [facility] Carbon Dioxide 20(L) 22 - 31 mmol/L [facility] Anion Gap 15 5 - 15 mmol/L [facility] Calcium 9.9 8.5 - 10.5 mg/dL [facility] Est Glomerular Filtration Rate 61 >=60 mL/min/1. 73 m?? [facility] Comment: This patient's estimated GFR [...] Lab Elle Tristan MD CHEMISTRY ORDER EDUAR [facility] [place] [address] * ECHO COMPLETE W CONTRAST (10/20/2023 11:32 AM EST) EF 67 HEART[facility] SYSTEM Anatomical Region Laterality Modality Cardiac Other 10/20/2023 10:3 4 AM EST Narrative 10/20/2023 1:32 PM EST 1 [place] [address] ? Echocardiogram Report Name: KIM PEREZ ? Study Date: 10/20/2023 10:34 AMBP: 138/56 mmHg ? Patient Location: [facility] CV24 A : 1960 ? Height: 65.5 in ? Account: [id number] Age: 63 yrs ? Weight: 170 lb Gender: Female ?BSA: 1.9 m2 Ordering Physician: ELLE TRISTAN Referring Physician: ODNI HERBERT Exam Location: [facility]. Interpretation Summary Left ventricular size and systolic function is normal. The left ventricular ejection fraction is 67% by Elliott's biplane. There are no segmental wall motion abnormalities. Right ventricular systolic function is normal. No significant valvular disease. No prior studies for comparison. Procedure Complete-08312. Image enhancement Optison was used for left [...] Luis Alfredo Velazquez MD - 10/20/2023 1 [place] [address] Echocardiogram Report Name: KIM PEREZ Study Date: 0:34 AMBP: 138/56 mmHg Patient Location: [address] : 1960 Height: 65.5 in Account: [id number] Age: 63 yrs Weight: 170 lb Gender: Female BSA: 1.9 m2 Ordering Physician: ELLE TRISTAN Referring Physician: DONI HERBERT Exam Location: [facility]. Interpretation Summary Left ventricular size and systolic function is normal. The leftventricular ejection fraction is 67% by Elliott's biplane. There are no segmental wallmotion abnormalities. Right ventricular systolic function is normal. No significant valvular disease. No prior studies for comparison. Procedure Complete-72028. Image enhancement Optison was used for left [...] Routine 1400 (Given - Provider: Alyssa Shearer, FRANCESCA) 0857 (Given - Provider: Gracie Harding, RN)1310 (NOV Hold - Provider: Admin Adt - Reason: Transfer to a Procedural area)1517 ([facility] Unhold - Provider: Admin Adt) 0828 (Given - Provider: Ana Durham, FRANCESCA) BUpivacaine (pf) (Marcaine) (5 mg/mL) 0.5% injection [...] Medication 1634 (New Bag - Provider: Alyssa hSearer RN)1734 (Stopped - Provider: Alyssa Shearer RN) [...] Routine 1400 (Not Given - Provider: Alyssa L Janki, RN - Reason: Order parameters not met)1700 (Not Given - Provider: Alyssa Shearer RN - Reason: Patient/family refused) 0800 (Not Given - Provider: Gracie Harding RN - Reason: Order parameters not met)1200 (Not Given - Provider: Gracie Harding RN - Reason: NPO)1310 (NOV Hold - Provider: Admin Adt - [...] hours 1849 (New Bag - Provider: Alyssa Shearer RN)2249 (Stopped - Provider: Kayla Sánchez RN) sodium chloride 0.9 % (flush) (BD PosiFlush Normal Saline 0.9) flush 5 mL 5 mL, Intravenous, 2 TIMES DAILY, First dose on Fri10/20/23 at 1400, Until Discontinued, Routine 1400 (Given - Provider: Alyssa Shearer RN)2103 (Given - Provider: Kayla Sánchez, FRANCESCA) 0858 (Given - Provider: Gracie Harding RN)1310 (NOV Hold - Provider: Admin Adt - Reason: Transfer to a Procedural area)1517 ([facility] Unhold - Provider: Admin Adt)2133 (Given - [...] medications are indicated., Recovery (Recovery-Hospital Unit), Routine 194 (Given - Provider: Marcio Sibley RN) 0218 [...] Adt - Reason: Transfer to a Procedural area)1516 (NOV Unhold - Provider: Admin Adt) glucagon (Glucagen) [...] Adt - Reason: Transfer to a Procedural area)1516 ([facility] Unhold - Provider: Admin Adt) glucose [...] - Reason: Transfer to a Procedural area)1517 ([facility] Unhold - Provider: Admin Adt) lidocaine (Xylocaine) 1% (10 mg/mL) injection 3 mg 3 mg (0.3 mL), Subcutaneous, ONCE PRN, 1 dose, Starting on Fri10/20/23 at 1304, Until Fri10/22/23 at 1321, for discomfort with PIV insertion, Routine 1310 ([facility] Hold - Provider: Admin Adt - Reason: Transfer to a Procedural area)1517 ([facility] Unhold - Provider: Admin Adt) magnesium oxide (Mag-Ox) tablet 800 mg 800 mg, Oral, DAILY PRN, Starting on Fri10/20/23 at 1434, Until Fri10/22/23 at 1321, Hypomagnesemia, Administer for serum magnesium of 0.5 - 0.79 mMol/L, Routine 1637 (Given - Provider: Alyssa Shearer RN) 1310 (NOV Hold - Provider: Admin Adt - Reason: Transfer to a Procedural area)1517 ([facility] Unhold - Provider: Admin Adt) 0615 (Given [...] last 24 to 72 hours., Routine 1310 ([facility] Hold - Provider: Admin Adt - Reason: Transfer to a Procedural area)1517 ([facility] Unhold - Provider: Admin Adt) perflutren [...] hours for serum phosphate 2-2.4 mg/dL. 1310 ([facility] Hold - Provider: Admin Adt - Reason: Transfer to a Procedural area)1517 ([facility] Unhold - Provider: Admin Adt) sodium chloride 0.9 % (flush) (BD PosiFlush Normal Saline 0.9) flush 5-20 mL 5-20 mL, Intravenous, EVERY 1 MIN PRN, Starting on Fri10/20/23 at 1304, Until Fri10/22/23 at 1321, flush, Flush pertains to all indwelling lines. Flush per protocol found in the job aid using the link provided on this medication record., Routine 1310 ([facility] Hold - Provider: Admin Adt - Reason: Transfer to a Procedural area)1517 ([facility] Unhold - Provider: Admin Adt) Linked Groups [...] Routine documented in this encounter Care Teams Sales Support Rep Relationship Specialty Start Date End Date Marcio Devlin DO [address] [place] [address] PCP - General Family Medicine 11/11/17 documented as of this encounter
--- OUTSIDE RECORDS SUMMARY | 2024-10-04 16:04 | XMS_ITS | Encounter Summary ---
Author Organization [facility] Address [facility] [place] [address] Care Team Providers Care Bridal Stylist Sales Consultant Name Role Phone Marcio Devlin DO Primary Care Provider [phone] Reason for Visit * Auth/Cert (Routine) Specialty Diagnoses / Procedures Referred By Contac t Referred To Contact Diagnoses Complete heart block Bradycardia Procedures EMERGENCY AMARILISI Elle Tristan MD [facility] [place] [address] [facility] Referral ID Status Reason Start Date Expiration Date Visits Re quested Visits Authorized [id number] 1 1 Encounter Details Date Type Department Care Team (Late st Contact Info) Description 10/21/2023 1:00 PM EST - 10/21/2023 3:30 PM EST Surgery [place] [address] Dilip Berumen MD [facility] [place] [address] ELECTROPHYSIOLOGY PROCEDURE Social History Tobacco Use Types Packs/Day Years Used Date Smoking Tobacco: Never Smokeless Tobacco: Never Alcohol Use Standard Drinks/Week Comments Yes 0 (1 standard drink = 0.6 oz pure alcohol) once every couple of months or less [facility] Utilities Answer Date Recorded In [...] Kim Perez Patient Age: 63 y.o. Language: Nepali Race: White Ethnicity: Not nor Admit date: 10/20/2023 Discharge date and time: 10/22/2023 Attending Physician: Humberto Lynn MD Discharge Physician: Humberto Lynn MD ID: Kim Perez is a 63 y.o. female w/ PMH of ulcerative colitis, ankylosing spondylitis, HTN and HLD who presented to [facility] for symptomatic bradycardia in [...] spondylitis. PCP Contact Information: Marcio Devlin DO [address] [facility] [address] [facility] [place] [address] Pending Studies and Lab Data: none No [...] disease Colonoscopy 09/19/08 (Dr. Shady Luz at [facility]) for surveillance for dysplasia. Areas of [...] 2020 - severe involvement of L colon, hxto-dc-eevmfaut involvement of transverse and R colon. Worse compared to last exam. SSA at hepatic flexure Adalimumab level ([place]) was 12.7 Switched to Stelara ( 03/21/21, first infusion dose) d/t Lost of response to Humira. Stopped Uceris and sulfasalazine in January 2021. [place] 09/2022 - tubular featureless L colon with [...] , patient went to her PCP at [facility] internal medicine where she was [...] and request was made to transfer to [facility] for ongoing care and possible permanent pacemaker evaluation. Upon interview in the [facility], patient resting comfortably in bed without concern. She states that shehas ongoing fatigue and weakness but denies lightheadedness or dizziness. Hospital Course: Kim Perez was admitted to the Hospital Medicine Service on 10/20/2023. The following issues were addressed and she was discharged on 10/22/2023. #Complete Heart Block w/ Narrow Junctional Escape After admission to the [facility], patient's home beta-rosita was discontinued. After [...] who have questions please contact the health cattle care worker that requested your imaging first. Electronically signed by: Liang Padilla MD, [facility] ([phone]), at 10/22/2023 8:51 AM XR Chest One View (Exam End: 10/21/2023 8:35 PM) Impression No acute pulmonary findings Thank you for letting us participate in the care of this patient. If you are a health care provider and have any questions regarding this report, please contact the number below. For patients who have questions please contact the health cattle care worker that requested your imaging first. Electronically signed by: Liang Padilla MD, [facility] ([phone]), at 10/22/2023 8:45 AM Discharge Conditions/Prognosis: Upon [...] 10 mg Refills: 0 SUMAtriptan 20 mg/actuation [place], Non-Aerosol Commonly known as: IMITREX 1 spray [...] 10 mg Refills: 0 SUMAtriptan 20 mg/actuation [place], Non-Aerosol Commonly known as: IMITREX 1 spray [...] Center 11/04/2023 11:00 AM Rosemarie Morrow APRN [facility] GASTRO [facility] 01/06/2024 1:00 PM Gabe Fong MD [facility] RHEUM [facility] Your Inpatient Medical Team at [facility] Name(s) of your inpatient provider(s): Humberto Lynn MD Your Primary Care Provider: Marcio Devlin DO [phone] For questions regarding this document or issues relating to this hospitalization on the Medical Service, please contact your inpatient physician through the [facility] Medical Fee Clerk . Issues afterhours and on weekends will be handled by the Hospitalist staff on-call. FINAL ICD/PACEMAKER RECOMMENDATIONS: 1. Standard post implant discharge instructions (see below): 2. Medications as listed above. 3. You may use ice packs over the incision. Make sure to use a cloth folder hand (such as a towel) in between the [...] F. The office scheduling phone number is [phone]. ARM MOVEMENT RESTRICTIONS POST-IMPLANT For 4-6 Weeks: [...] product, please call the device clinic at [phone]. General Instructions None Future Appointments and Orders Future Appointments and Orders Future Appointments Provider Department Dept Phone 11/04/2023 11:00 AM Rosemarie Morrow APRN Gastroenterology at [facility] Arrive at: Home [phone] To view instructions for your video visit, click here, or visit this website: [email or web address] If you have not previously downloaded the [facility] patient portal software, [employer], or the RightSignature maria c, please do so by clicking [...] see: How to Disable Pop-Up Block for myDH Video Visits Zoom asking for a meeting password? - Exit out of the Zoom program and try the link again 11/04/2023 1:00 PM Lorri Mckinney PA Cardiology at [facility] Arrive at: Clinical Document Improvement Educator Area 4A [phone] 01/06/2024 1:00 PM Gabe Fong MD Rheumatology at [facility] Arrive at: Clinical Document Improvement Educator Area 5C [phone] Inpatient Provider Contact Information: Clarence Pearl MD [...] 10 mg Refills: 0 SUMAtriptan 20 mg/actuation [place], Non-Aerosol Commonly known as: IMITREX 1 spray [...] Center 11/04/2023 11:00 AM Rosemarie Morrow APRN [facility] GASTRO [facility] 01/06/2024 1:00 PM Gabe Fong MD [facility] RHEUM [facility] Your Inpatient Medical Team at [facility] Name(s) of your inpatient provider(s): Humberto Lynn MD Your Primary Care Provider: Marcio Devlin DO [phone] For questions regarding this document or issues relating to this hospitalization on the Medical Service, please contact your inpatient physician through the [facility] Medical Fee Clerk . Issues afterhours and on weekends will be handled by the Hospitalist staff on-call. FINAL ICD/PACEMAKER RECOMMENDATIONS: 1. Standard post implant discharge instructions (see below): 2. Medications as listed above. 3. You may use ice packs over the incision. Make sure to use a cloth folder hand (such as a towel) in between the [...] F. The office scheduling phone number is [phone]. ARM MOVEMENT RESTRICTIONS POST-IMPLANT For 4-6 Weeks: [...] product, please call the device clinic at [phone]. documented in this encounter Medications at Time [...] by mouth daily. SUMAtriptan (IMITREX) 20 mg/actuation [place], Non-Aerosol 1 spray as needed. 11/03/2017 metFORMIN [...] as of this encounter Progress Notes * Carlso Arias MD - 10/21/2023 7:48 AM EST [...] unit. CARLOS ARIAS MD 10/21/2023 * Glenn iMranda MD - 10/21/2023 7:01 AM EST Images from the original note were not included. Cardiology ICU Progress Note Patient info: Name: Kim Perez : 1960 PCP: Marcio Devlin DO PCP phone number: [phone] Date of Admission: 10/20/2023 ( Hospital Day [...] in the last 7068 hours. Invalid input(s): [id number] Recent Labs 10/21/23 0754 10/20/23 2106 10/20/23 [...] service for ongoing care. Glenn Miranda MD, [facility] Staff Paint Process Engineer * Elle Tristan MD - 10/20/2023 1:46 [...] placement 10/21/23. History of Present Illness: Per [facility] H&P This patient presented to the [...] , patient went to her PCP at [facility] internal medicine where she was [...] and request was made to transfer to [facility] for ongoing care and possible permanent pacemaker evaluation. Upon interview in the [facility], patient resting comfortably in bed without concern. She states that shehas ongoing fatigue and weakness but denies lightheadedness or dizziness. Hospital Course to date After admission to the [facility], patient's home beta-rosita was discontinued. After [...] disease Colonoscopy 09/19/08 (Dr. Shady Luz at [facility]) for surveillance for dysplasia. Areas of [...] iritis Escalated to weekly Humira 11/2019. ADA ([place]) from 6 q 2wk to 12.7 qwk, as well as BID SSZ Colonoscopy Oct 2019: normal rectum, mod-severe inflammation and narrowing from 6-25 cm from the anus, normal remainder of colon. Path: mild active chronic colitis in ac/tc/dc/sc, severe active colitis with ulceration in proximal rectum Colonoscopy December 2020 - severe involvement of L colon, misc-dy-yajkqtbp involvement of transverse and R colon. Worse compared to last exam. SSA at hepatic flexure Adalimumab level ([place]) was 12.7 Switched to Stelara ( 03/21/21, first infusion dose) d/t Lost of response to Humira. Stopped Uceris and sulfasalazine in January 2021. [place] 09/2022 - tubular featureless L colon with [...] in the last 7068 hours. Invalid input(s): [id number] Heme: No results for input(s): LDH, HAPTOGLOBIN, [...] PCP: Marcio Devlin DO PCP phone number: [phone] Date of Admission: 10/20/2023 ( Hospital Day [...] , patient went to her PCP at [facility] internal medicine where she was [...] and request was made to transfer to [facility] for ongoing care and possible permanent [...] disease Colonoscopy 09/19/08 (Dr. Shady Luz at [facility]) for surveillance for dysplasia. Areas of [...] WITH BX performed by YAQUELIN ESTRADA at [facility] ENDOSCOPY PRO COLONOSCOPY, BIOPSY N/A 03/04/2017 COLONOSCOPY FLEXIBLE, WITH BX (WRVU 3.66) performed by Raúl Austin MD at [facility] ENDOSCOPY PRO COLONOSCOPY, BIOPSY N/A 11/09/2019 COLONOSCOPY FLEXIBLE, WITH BX (WRVU 3.66) performed by Froilan Sahni MD at [facility] ENDOSCOPY PRO COLONOSCOPY, BIOPSY N/A 12/19/2020 COLONOSCOPY FLEXIBLE, WITH BX (WRVU 3.66) performed by Dajuan Rachel MD at [facility] ENDOSCOPY PRO COLONOSCOPY, BIOPSY N/A 09/24/2022 COLONOSCOPY FLEXIBLE, WITH BX (WRVU 3.66) performed by Dajuan Rachel MD at [facility] ENDOSCOPY PRO COLONOSCOPY, BIOPSY N/A 09/18/2023 COLONOSCOPY FLEXIBLE, WITH BX (WRVU 3.56) performed by Dajuan Rachel MD at [facility] ENDOSCOPY PRO COLONOSCOPY, DIAGNOSTIC N/A 11/09/2019 COLONOSCOPY, DIAGNOSTIC performed by Froilan Shani MD at [facility] ENDOSCOPY PRO COLONOSCOPY, REMV LESN, SNARE 01/02/2011 COLONOSCOPY, POLYPECTOMY, REMOVAL LESION BY SNARE performed by YAQUELIN ESTRADA at [facility] ENDOSCOPY PRO COLONOSCOPY, REMV LESN, SNARE N/A 03/04/2017 COLONOSCOPY, POLYPECTOMY, REMOVAL LESION BY SNARE (WRVU 4.67) performed by Raúl Austin MD at [facility] ENDOSCOPY PRO COLONOSCOPY, REMV LESN, SNARE N/A 09/24/2022 COLONOSCOPY, POLYPECTOMY, REMOVAL LESION BY SNARE (WRVU 4.67) performed by Dajuan Rachel MD at [facility] ENDOSCOPY PRO COMBINED ANT/POST COLPORRHAPHY W CYSTO N/A 03/10/2018 COLPORRHAPHY ANTERIOR-POSTERIOR; INC CYSTOURETHROSCOPY (WRVU 14.44) performed by Liang Fong MD at [facility] MAIN OR PRO REVAGINAL PROLAPSE, UTEROSACRAL N/A 03/10/2018 COLPOPEXY, VAGINAL, INTRAPERITONEAL APPROACH (WRVU 11.66) [facility] SLING OPER STRES INCONTINENCE N/A 03/10/2018 URETHRAL SUSPENSION, SLING\FASCIA OR SYNTHETIC (WRVU 12.13) performed by Liang Fong MD at [facility] MAIN OR PRO VAG HYST, RMV TUBE/OVARY N/A 03/10/2018 HYSTERECTOMY, VAGINAL, REMOVAL TUBE(S) & OR OVARY(S) (WRVU 15.94) performed by Liang Fong MD at [facility] MAIN OR SALPINGECTOMY XR FLUORO INJECTION DRAINAGE JOINT LG RIGHT Right 03/09/2019 XR Fluoro Guided Joint Injection Large Right 03/09/2019 [facility] RAD XRAY Family History Family History [...] Blood Gas) No results for input(s): PHART, PVA3WCU, PO2ART, VLF2PMJ, LACTATEVEN, RRX5EXB, PFRATIOART2 in the last 168 hours. VBG (Venous Blood Gas) No results for input(s): PHVEN, UZI0QMP, PO2VEN, EUB0GGD, LACTATEVEN in the last 168 hours. Mixed Venous Sat No results for input(s): G4PNPT9 in the last 168 hours. Intake/Output Summary [...] in the last 7068 hours. Invalid input(s): [id number] No results for input(s): POCGLU in the last 168 hours. Heme No results for input(s): LDH, HAPTOGLOBIN, URICACID in the last 168 hours. ABG (Arterial Blood Gas) No results for input(s): PHART, MAP0XNE, PO2ART, MVQ3XMP, LACTATEVEN, HTV8MSR, PFRATIOART2 in the last 168 hours. VBG (Venous Blood Gas) No results for input(s): PHVEN, FUF2SQS, PO2VEN, ZMS4NVA, LACTATEVEN in the last 168 hours. Mixed Venous Sat No results for input(s): M5HKLI7 in the last 168 hours. Microbiology: Microbiology [...] Jean Roca, DO Internal Medicine, PGY-1 Cardiology, [facility] 10/20/23 2:14 PM * Jason Castro MD - 10/20/2023 10:39 AM EST Inpatient Cardiac Electrophysiology- Initial Consultation Date of Consultation: 10/20/2023 Admit Date: 10/20/2023 Patient Location: [facility] Attending Paint Process Engineer: Riley Reason for Consult: Complete Heart Block [...] by mouth daily. SUMAtriptan (IMITREX) 20 mg/actuation [place], Non-Aerosol 1 spray as needed. 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 Gera Martell MD Cardiac Electrophysiology Fellow [facility] Pager [phone] 10/20/2023 I met with the patient today [...] above plan. Dr. 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 Current Living Arrangements: home/apartment/condo. Accessibility Concerns:house 1 floor with 3 LISS. Current Functional Ability: Independent, Assistive Person DME used at home: none DME Needed at Discharge: none Patient is insured through: Primary Insurance: [employer] Payor: [facility] / Plan: [facility] PPO / Product Type: *No Product type* / Secondary Insurance: N/A Prescription Coverage: Yes This plan was formulated with input from patient and team. All are in agreement with plan. GHADA Shah, RN Inpatient Fourth Hand- Cardiology Office of Care Management Pager #: [phone] * Consult Note - Chepe Russo MD - 10/22/2023 8:00 AM EST Images from the original note were not included. [facility] [place] [address] [address] CARDIAC ELECTROPHYSIOLOGY CONSULT NOTE Patient: Kim Perez [...] disease Colonoscopy 09/19/08 (Dr. Shady Luz at [facility]) for surveillance for dysplasia. Areas of [...] 2020 - severe involvement of L colon, yfip-bt-ldkyaxod involvement of transverse and R colon. Worse compared to last exam. SSA at hepatic flexure Adalimumab level ([place]) was 12.7 Switched to Stelara ( 03/21/21, first infusion dose) d/t Lost of response to Humira. Stopped Uceris and sulfasalazine in January 2021. [place] 09/2022 - tubular featureless L colon with [...] She underwent placement of a left sided [employer] dual chamber pacemaker on 10/21/23. Procedure [...] expected position. No pneumothorax. Diagnostics Presenting EGMs: -BUTCHER SUPERVISOR Underlying Rhythm: CHB with narrow junctional escape in the 30's Atrial Episodes: None Ventricular Episodes: None Atrial Pacing: <1% Ventricular Pacin% Lead and Generator Data Head Turning Machine Operator Model # Serial # Generator [employer] [id number] Atrial Lead [employer] [id number] Ventricular Lead [employer] [id number] Pace / Sense Data Sensed wave (mV) [...] She underwent placement of a left sided [employer] dual chamber pacemaker on 10/21/23. Device is functioning well and CXR unremarkable. Recommendations: - Pocket incision is well healed without signs or symptoms of infection - Device is functioning appropriately - Patient will have 10 day follow up here and will then follow up at [facility] Case was discussed with Dr. Berumen who agrees with recommendations as documented above. EP Consult service will continue to follow patient. x Recommendations are above, please page if further consultation required. Chepe Russo Bulk Plant Operator [id number] Associated attestation - Dilip Berumen MD - 10/22/2023 11:33 AM EST Post-op day # 1 s/p dual-chamber pacemaker for symptomatic complete heart block . Patient feels much, much better. Post implant interrogation - excellent RA and RV parameters. CXR- good and stable lead positions, no sign of PTX. OK to discharge patient from EP standpoint. Will arrange ~10 daywound check at [facility] and ~ 91 day check at [facility]. Dilip Berumen MD, PhD, [facility] Cardiac Electrophysiology 10/22/2023 11:32 AM * Initial [...] disease Colonoscopy 09/19/08 (Dr. Shady Luz at [facility]) for surveillance for dysplasia. Areas of [...] surrogate would be surrogate decision maker per [place] surrogate decision making law. (Only good for 180 days) Any patient receiving care in [place] must abide by [place] law. The hierarchy for surrogate decision making [...] (i) The agent with financial power of negative stripper or a conservator appointed in accordance with RSA 464-A. (j) The guardian of the patient???s estate. 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 [employer] Relation: Spouse Secondary Emergency Contact: Olivia [...] points: Addiction likely Health/Prescription Coverage: Primary Insurance: [employer] Payor: [employer] / Plan: [facility] PPO / Product Type: *No Product type* / Secondary Insurance: N/A ; Prescription Coverage: Yes Preferred Pharmacy: [id number] - [place], [place] - [address] [facility] [address] [facility] [address] [address] [place] Status: Patient is a : No Primary Care Provider confirmed: Marcio Devlin DO [phone] Patient/Caregiver Goals of Treatment: return home with [...] AM EST Hospital Encounter Non-Invasive Cardiology Lab [address] Arrived 11/12/2024 8:00 AM EST Appointment Mammography/DXA at [place] [address] Gabe Fong MD [facility] [place] [address] 11/30/2024 2:30 PM EDT Office Visit Rheumatology at [place] [address] Gabe Fong MD [facility] [place] [address] 12/07/2024 2:30 PM EDT TH Visit (TeleHealth) Gastroenterology at [address] Rosemarie Morrow APRN [facility] [place] [address] documented as of this encounter Procedures Procedure [...] 6:04 AM EST DIFFERENTIAL, AUTOMATED Routine 10/21/19 6:04 AM EST CBC (WITH DIFF) Routine [...] who have questions please contact the health cattle care worker that requested your imaging first. ? Electronically signed by: Liang Padilla MD, [facility] ??([phone]), at 10/22/2023 8:51 AM Narrative 10/22/2023 8:51 [...] patients who have questions please contactthe health cattle care worker that requested your imaging first. Electronically signed by: Liang Padilla MD, [facility]([phone]), at 10/22/2023 8:51 AM Dilip Berumen MD IMG DX ORDERABLES * (ABNORMAL) Differential, Automated (10/22/2023 2:41 AM EST) Neutrophil % 71.9 % [facility] Neutrophil Absolute 6.59(H) 1.70 - 6.10 x10(3)/mc L [facility] Lymph % 19.1 % [facility] Lymphocytes Abs 1.8 0.9 - 3.2 x10(3)/mc L [facility] Monocyte % 7.9 % [facility] Monocyte Abs 0.7 0.3 - 0.9 x10(3)/mc L [facility] Eos % 0.7 % [facility] Eosinophils Abs 0.1 0.0 - 0.4 x10(3)/mc L [facility] Basophil % 0.2 % [facility] Baso Absolute 0.0 0.0 - 0.1 x10(3)/mc L [facility] Immature Gran % 0.20 % [facility] Comment: Immature granulocytes(IG's)percentage and absolute count will include metamyelocytes, myelocytes, and promyelocytes. Blood smears from CBCs yielding IG's will be scanned manually for concordance. If this scan disagrees with the automated IG or if promyelocytes are noted, a manual differential will be performed. Immature Gran Absolute 0.02 0.00 - 0.04 x10(3)/mc L [facility] Blood 10/22/2023 2:41 AM EST 10/22/2023 2:41 AM EST Narrative Resulting Agency Comment Spec In Lab Clifton Segundo MD HEMATOLOGY ORDERABLE S [facility] [place] [address] * (ABNORMAL) Hemogram (10/22/2023 2:41 AM EST) White Blood Cell 9.2 4.0 - 9.5 x10(3)/mc L [facility] Red Blood Cell 4.11 4.00 - 5.21 x10(6)/mc L [facility] Hemoglobin 12.9 11.7 - 15.5 g/dL [facility] Hematocrit 38.4 35.7 - 45.8 % [facility] Mean Cell Volume 93.4 82.6 - 94.4 fL [facility] Mean Cell Hemoglobin 31.4 27.1 - 32.0 pg [facility] Mean Cell Hemoglobin Concentration 33.6 31.7 - 35.0 g/dL [facility] Platelet 190 145 - 357 x10(3)/mc L [facility] RDW Standard Deviation 48.7(H) 37.0 - 46.0 fL [facility] RDW coefficient of variation 14.1 11.5 - 14.1 % [facility] Mean Platelet Volume 10.5 7.6 - 12.9 fL [facility] NRBC% auto 0.0 % [facility] NRBC Absolute 0.000 0.000 - 0.000 x10(3)/mc L [facility] Blood 10/22/2023 2:41 AM EST 10/22/2023 2:41 AM EST Narrative Resulting Agency Comment Spec In Lab Clifton Segundo MD HEMATOLOGY ORDERABLE S [facility] [facility] [place] [address] * (ABNORMAL) Basic Metabolic Panel (non-fasting) (10/22/2023 2:41 AM EST) Glucose 115 65 - 199 mg/dL [facility] Comment:Diabetes: >=200 mg/d L plus symptoms Blood Urea Nitrogen 21(H) 8 - 18 mg/dL [facility] Creatinine 1.12 0.70 - 1.20 mg/dL [facility] Sodium 142 135 - 145 mmol/L [facility] Potassium 3.8 3.5 - 5.0 mmol/L [facility] Comment: Please note: ??Patients with WBC >100,000 may have falsely elevated Potassium levels. ??For accurate Potassium quantification in these patients send serum separator tube (gold top) for subsequent determinations. ??Contact the Clinical Chemistry Laboratory if there are any questions. Chloride 107 98 - 107 mmol/L [facility] Carbon Dioxide 23 22 - 31 mmol/L [facility] Anion Gap 12 5 - 15 mmol/L [facility] Calcium 9.1 8.5 - 10.5 mg/dL [facility] Est Glomerular Filtration Rate 56(L) >=60 mL/min/1. 73 m?? [facility] Comment: This patient's estimated [...] Miranda MD CHEMISTRY ORDERABLES Performing Organization Address [facility] Co de Phone Number [facility] [place] [place] [address] * Phosphorus (10/22/2023 2:41 AM EST) Phosphorus 4.3 2.5 - 4.5 mg/dL [facility] Blood 10/22/2023 2:41 AM EST 10/22/2023 2:41 AM EST Narrative Resulting Agency Comment Spec In Lab Glenn Miranda MD CHEMISTRY ORDERABLES Performing Organization Address [facility] Co de Phone Number [facility] [place] [place] [address] * (ABNORMAL) Magnesium (10/22/2023 2:41 AM EST) Magnesium 0.66(L) 0.69 - 1.07 mmol/L [facility] Blood 10/22/2023 2:41 AM EST 10/22/2023 2:41 AM EST Narrative Resulting Agency Comment Spec In Lab Glenn Miranda MD CHEMISTRY ORDERABLES Performing Organization Address [facility] Co de Phone Number [facility] [place] [place] [address] * POCT Glucose (10/21/2023 9:43 PM EST) Glucose, POC 131 65 - 199 mg/dL [facility] Comment: Supplemental ranges: <140 mg/dL before meals <180 mg/dL all other times of the day Blood 10/21/2023 9:43 PM EST 10/21/2023 9:43 PM EST Humberto Lynn MD POINT OF CARE TEST ORDERABLES Performing Organization Address [facility] Co de Phone Number [facility] [place] [place] [address] * XR Chest One View (10/21/2023 8:35 [...] who have questions please contact the health cattle care worker that requested your imaging first. ? Electronically signed by: Liang Padilla MD, [facility] ??([phone]), at 10/22/2023 8:45 AM Narrative 10/22/2023 8:45 [...] patients who have questions please contactthe health cattle care worker that requested your imaging first. Humberto Lynn MD IMG DX ORDERABLES * POCT Glucose (10/21/2023 3:33 PM EST) Glucose, POC 75 65 - 199 mg/dL [facility] Comment: Supplemental ranges: <140 mg/dL before meals <180 mg/dL all other times of the day Blood 10/21/2023 3:33 PM EST 10/21/2023 3:33 PM EST Glenn Miranda MD POINT OF CARE TEST O RDERABLES Performing Organization Address City/State/[facility] Co de Phone Number [facility] [place] [address] * ELECTROPHYSIOLOGY PROCEDURE (10/21/2023 3:04 PM EST) Anatomical Region Laterality Modality Other Narrative 10/24/2023 12:54 PM EST Table formatting from the original result was not included. Images from the original result were not included. Kitchen Worker: Dilip Berumen MD Fellow: Gera Martell MD [...] the entire procedure. Lead and Generator Data Head Turning Machine Operator Model # Serial # Generator [employer]fin[employer] [id number] Atrial Lead [place] [employer] [id number] Ventricular Lead [place] [employer] [id number] Pace / Sense Data Sensed wave (mV) [...] of this procedure. Dilip Berumen MD, PhD, [facility] Cardiac Electrophysiology Dilip Berumen MD EP PROCEDURE ORDERAB LES * POCT Glucose (10/21/2023 11:31 AM EST) Glucose, POC 104 65 - 199 mg/dL [facility] Comment: Supplemental ranges: <140 mg/dL before meals <180 mg/dL all other times of the day Blood 10/21/2023 11:3 1 AM EST 10/21/2023 11:31 AM EST Glenn Miranda MD POINT OF CARE TEST O RDERABLES [facility] [place] [place] [address] * (ABNORMAL) Basic Metabolic Panel (non-fasting) (10/21/2023 7:55 AM EST) Glucose 114 65 - 199 mg/dL [facility] Comment:Diabetes: >=200 mg/d L plus symptoms Blood Urea Nitrogen 23(H) 8 - 18 mg/dL [facility] Creatinine 1.18 0.70 - 1.20 mg/dL [facility] Sodium 143 135 - 145 mmol/L [facility] Potassium 4.2 3.5 - 5.0 mmol/L [facility] Comment: Please note: ??Patients with WBC >100,000 may have falsely elevated Potassium levels. ??For accurate Potassium quantification in these patients send serum separator tube (gold top) for subsequent determinations. ??Contact the Clinical Chemistry Laboratory if there are any questions. Chloride 111(H) 98 - 107 mmol/L [facility] Carbon Dioxide 21(L) 22 - 31 mmol/L [facility] Anion Gap 11 5 - 15 mmol/L [facility] Calcium 10.1 8.5 - 10.5 mg/dL [facility] Est Glomerular Filtration Rate 52(L) >=60 mL/min/1. 73 m?? [facility] Comment: This patient's estimated [...] Miranda MD CHEMISTRY ORDERABLES Performing Organization Address [facility]/ZIP Co de Phone Number [facility] [place] [address] * POCT Glucose (10/21/2023 7:54 AM EST) Glucose, POC 107 65 - 199 mg/dL [facility] Comment: Supplemental ranges: <140 mg/dL before meals <180 mg/dL all other times of the day Blood 10/21/2023 7:54 AM EST 10/21/2023 7:54 AM EST Glenn Miranda MD POINT OF CARE TEST O RDERABLES Performing Organization Address City/[facility]/ZIP Co de Phone Number [facility] [place] [place] [address] * Differential, Automated (10/21/2023 6:04 AM EST) Neutrophil % 56.2 % [facility] Neutrophil Absolute 3.81 1.70 - 6.10 x10(3)/[facility] LAB[facility] Lymph % 33.4 % [facility] Lymphocytes Abs 2.3 0.9 - 3.2 x10(3)/[facility] LAB[facility] Monocyte % 9.0 % [facility] Monocyte Abs 0.6 0.3 - 0.9 x10(3)/[facility] LAB[facility] Eos % 0.9 % [facility] Eosinophils Abs 0.1 0.0 - 0.4 x10(3)/[facility] LAB[facility] Basophil % 0.4 % [facility] Baso Absolute 0.0 0.0 - 0.1 x10(3)/[facility] LAB[facility] Immature Gran % 0.10 % [facility] Comment: Immature granulocytes(IG's)percentage and absolute count will include metamyelocytes, myelocytes, and promyelocytes. Blood smears from CBCs yielding IG's will be scanned manually for concordance. If this scan disagrees with the automated IG or if promyelocytes are noted, a manual differential will be performed. Immature Gran Absolute 0.01 0.00 - 0.04 x10(3)/[facility] Blood 10/21/2023 6:04 AM EST 10/21/2023 6:21 AM EST Narrative Resulting Agency Comment Spec In Lab Clifton Segundo MD HEMATOLOGY ORDERABLE S [facility] [place] [place] [address] * (ABNORMAL) Hemogram (10/21/2023 6:04 AM EST) White Blood Cell 6.8 4.0 - 9.5 x10(3)/mc L [facility] Red Blood Cell 4.06 4.00 - 5.21 x10(6)/mc L [facility] Hemoglobin 12.6 11.7 - 15.5 g/dL [facility] Hematocrit 38.1 35.7 - 45.8 % [facility] Mean Cell Volume 93.8 82.6 - 94.4 fL [facility] Mean Cell Hemoglobin 31.0 27.1 - 32.0 pg [facility] Mean Cell Hemoglobin Concentration 33.1 31.7 - 35.0 g/dL [facility] Platelet 211 145 - 357 x10(3)/mc L [facility] RDW Standard Deviation 50.4(H) 37.0 - 46.0 fL [facility] RDW coefficient of variation 14.5(H) 11.5 - 14.1 % [facility] Mean Platelet Volume 10.9 7.6 - 12.9 fL [facility] NRBC% auto 0.0 % [facility] NRBC Absolute 0.000 0.000 - 0.000 x10(3)/mc L [facility] Blood 10/21/2023 6:04 AM EST 10/21/2023 6:21 AM EST Narrative Resulting Agency Comment Spec In Lab Clifton Segundo MD HEMATOLOGY ORDERABLE S Performing Organization Address City/[facility] Co de Phone Number [facility] [place] [address] * Phosphorus (10/21/2023 6:04 AM EST) Phosphorus 4.5 2.5 - 4.5 mg/dL [facility] Comment:result rechecked-EL Blood 10/21/2023 6:04 AM EST 10/21/2023 6:21 AM EST Narrative Resulting Agency Comment Spec In Lab Glenn Miranda MD CHEMISTRY ORDERABLES Performing Organization Address [facility] Co de Phone Number [facility] [place] [address] * Magnesium (10/21/2023 6:04 AM EST) Magnesium 0.70 0.69 - 1.07 mmol/L [facility] Blood 10/21/2023 6:04 AM EST 10/21/2023 6:21 AM EST Narrative Resulting Agency Comment Spec In Lab Glenn Miranda MD CHEMISTRY ORDERABLES Performing Organization Address City/[facility]/ZIP Co de Phone Number [facility] [place] [address] * POCT Glucose (10/20/2023 9:06 PM EST) Glucose, POC 116 65 - 199 mg/dL [facility] Comment: Supplemental ranges: <140 mg/dL before meals <180 mg/dL all other times of the day Blood 10/20/2023 9:06 PM EST 10/20/2023 9:06 PM EST Elle Tristan MD POINT OF CARE T EST ORDERABLES Performing Organization Address [facility] Co de Phone Number [facility] [place] [address] * POCT Glucose (10/20/2023 4:50 PM EST) Glucose, POC 94 65 - 199 mg/dL [facility] Comment: Supplemental ranges: <140 mg/dL before meals <180 mg/dL all other times of the day Blood 10/20/2023 4:50 PM EST 10/20/2023 4:50 PM EST Elle Tristan MD POINT OF CARE T EST ORDERABLES Performing Organization Address [facility] Co de Phone Number [facility] [place] [address] * Differential, Automated (10/20/2023 1:40 PM EST) Neutrophil % 42.4 % [facility] Neutrophil Absolute 2.79 1.70 - 6.10 x10(3)/[facility] LABORAT[facility] Lymph % 48.1 % [facility] Lymphocytes Abs 3.2 0.9 - 3.2 x10(3)/[facility] LAB[facility]AT[facility] Monocyte % 8.2 % [facility] Monocyte Abs 0.5 0.3 - 0.9 x10(3)/[facility] LAB[facility] Eos % 0.8 % [facility] Eosinophils Abs 0.0 0.0 - 0.4 x10(3)/[facility] LAB[facility] Basophil % 0.3 % [facility] Baso Absolute 0.0 0.0 - 0.1 x10(3)/[facility] LABORATORY Immature Gran % 0.20 % [facility] Comment: Immature granulocytes(IG's)percentage and absolute count will include metamyelocytes, myelocytes, and promyelocytes. Blood smears from CBCs yielding IG's will be scanned manually for concordance. If this scan disagrees with the automated IG or if promyelocytes are noted, a manual differential will be performed. Immature Gran Absolute 0.01 0.00 - 0.04 x10(3)/[facility] Blood 10/20/2023 1:40 PM EST 10/20/2023 1:57 PM EST Narrative Resulting Agency Comment Spec In Lab Clifton Segundo MD HEMATOLOGY ORDERABLE S Performing Organization Address City/State/[facility] Co de Phone Number [facility] [place] [address] * (ABNORMAL) Hemogram (10/20/2023 1:40 PM EST) White Blood Cell 6.6 4.0 - 9.5 x10(3)/mc L [facility] Red Blood Cell 4.08 4.00 - 5.21 x10(6)/mc L [facility] Hemoglobin 12.6 11.7 - 15.5 g/dL [facility] Hematocrit 37.4 35.7 - 45.8 % [facility] Mean Cell Volume 91.7 82.6 - 94.4 fL [facility] Mean Cell Hemoglobin 30.9 27.1 - 32.0 pg [facility] Mean Cell Hemoglobin Concentration 33.7 31.7 - 35.0 g/dL [facility] Platelet 228 145 - 357 x10(3)/mc L [facility] RDW Standard Deviation 48.5(H) 37.0 - 46.0 fL [facility] RDW coefficient of variation 14.3(H) 11.5 - 14.1 % [facility] Mean Platelet Volume 10.9 7.6 - 12.9 fL [facility] NRBC% auto 0.0 % [facility] NRBC Absolute 0.000 0.000 - 0.000 x10(3)/mc L [facility] Blood 10/20/2023 1:40 PM EST 10/20/2023 1:57 PM EST Narrative Resulting Agency Comment Spec In Lab Clifton Segundo MD HEMATOLOGY ORDERABLE S Performing Organization Address [facility] Co de Phone Number [facility] [place] [address] * (ABNORMAL) Phosphorus (10/20/2023 1:40 PM EST) Phosphorus 1.6(L) 2.5 - 4.5 mg/dL [facility] Blood 10/20/2023 1:40 PM EST 10/20/2023 1:57 PM EST Narrative Resulting Agency Comment Spec In Lab Elle Tristan MD CHEMISTRY ORDER EDUAR Performing Organization Address City/[facility] Co de Phone Number [facility] [place] [address] * Magnesium (10/20/2023 1:40 PM EST) Magnesium 0.71 0.69 - 1.07 mmol/L [facility] Blood 10/20/2023 1:40 PM EST 10/20/2023 1:57 PM EST Narrative Resulting Agency Comment Spec In Lab Elle Tristan MD CHEMISTRY ORDER EDUAR Performing Organization Address [facility] Co de Phone Number [facility] [place] [place] [address] * (ABNORMAL) Basic Metabolic Panel (non-fasting) (10/20/2023 1:40 PM EST) Glucose 92 65 - 199 mg/dL [facility] Comment:Diabetes: >=200 mg/d L plus symptoms Blood Urea Nitrogen 23(H) 8 - 18 mg/dL [facility] Creatinine 1.04 0.70 - 1.20 mg/dL [facility] Sodium 145 135 - 145 mmol/L [facility] Potassium 3.9 3.5 - 5.0 mmol/L [facility] Comment: Please note: ??Patients with WBC >100,000 may have falsely elevated Potassium levels. ??For accurate Potassium quantification in these patients send serum separator tube (gold top) for subsequent determinations. ??Contact the Clinical Chemistry Laboratory if there are any questions. Chloride 110(H) 98 - 107 mmol/L [facility] Carbon Dioxide 20(L) 22 - 31 mmol/L [facility] Anion Gap 15 5 - 15 mmol/L [facility] Calcium 9.9 8.5 - 10.5 mg/dL [facility] Est Glomerular Filtration Rate 61 >=60 mL/min/1. 73 m?? [facility] Comment: This patient's estimated [...] Lab Elle Tristan MD CHEMISTRY ORDER EDUAR [facility] [place] [address] * ECHO COMPLETE W CONTRAST (10/20/2023 11:32 AM EST) EF 67 HEARTLAB SYSTEM Anatomical Region Laterality Modality Cardiac Other 10/20/2023 10:3 4 AM EST Narrative 10/20/2023 1:32 PM EST [address] [place] [address] ? Echocardiogram Report Name: KIM PEREZ ? Study Date: 10/20/2023 10:34 AMBP: 138/56 mmHg ? Patient Location: [address] : 1960 ? Height: 65.5 in ? Account: [id number] Age: 63 yrs ? Weight: 170 lb Gender: Female ?BSA: 1.9 m2 Ordering Physician: ELLE TRISTAN Referring Physician: DONI HERBERT Exam Location: [facility]. Interpretation Summary Left ventricular size and systolic function is normal. The left ventricular ejection fraction is 67% by Elliott's biplane. There are no segmental wall motion abnormalities. Right ventricular systolic function is normal. No significant valvular disease. No prior studies for comparison. Procedure Complete-[id number]. Image enhancement Optison was used for left [...] Luis Alfredo Velazquez MD - 10/20/2023 [address] [place] [address] Echocardiogram Report Name: KIM PEREZ Study Date: 0:34 AMBP: 138/56 mmHg Patient Location: [address] : 1960 Height: 65.5 in Account: [id number] Age: 63 yrs Weight: 170 lb Gender: Female BSA: 1.9 m2 Ordering Physician: ELLE TRISTAN Referring Physician: DONI HERBERT Exam Location: [facility]. Interpretation Summary Left ventricular size and systolic function is normal. The leftventricular ejection fraction is 67% by Elliott's biplane. There are no segmental wallmotion abnormalities. Right ventricular systolic function is normal. No significant valvular disease. No prior studies for comparison. Procedure Complete-[id number]. Image enhancement Optison was used for left [...] Akinetic Dyskinetic 3-5moderate 5 - 6-14large Aneurysmal 16diffuse Elle Tristan MD ECHO ORDERABLES documented in [...] Shearer RN) 0857 (Given - Provider: Gracie Hardign RN)1310 (NOV Hold - Provider: Admin Adt [...] Routine 210 (Given - Provider: Kayla Sánchez, FRANCESCA) glucagon (Glucagen) (1 mg/mL) injection solution 3 [...] not met)1132 (Not Given - Provider: Gracie G M Harding, RN - Reason: Order parameters not met)1310 (NOV Hold - Provider: Admin Adt - Reason: Transfer to a Procedural area)1517 (NOV Unhold - Provider: Admin Adt)1630 (Not Given - Provider: Gracie Harding RN - Reason: Order parameters not met) 0730 (Not Given - Provider: Ana Durham, FRANCESCA - Reason: Patient/family refused) lidocaine (Xylocaine) (20 mg/mL) 2% injection 400 mg (COMPLETED) 400 mg (20 mL), Subcutaneous, ONCE, 1 dose, On Fri10/21/23 at 1400, EP (Intra-Procedure), Routine 1345 (Given - Provider: Eugenia Sosa, RN) magnesium sulfate 2 g in sterile water [...] Alyssa Shearer RN)2249 (Stopped - Provider: Kayla Sánchez, FRANCESCA) [...] - Reason: Transfer to a Procedural area)151 (MAR Unhold - Provider: Admin Adt) glucagon [...] area)1516 (NOV Unhold - Provider: Admin Adt) lidocaine (Xylocaine) 1% (10 mg/mL) injection 3 mg 3 mg (0.3 mL), Subcutaneous, ONCE PRN, 1 dose, Starting on Fri10/20/23 at 1304, Until Fri10/22/23 at 1321, for discomfort with PIV insertion, Routine 1310 (NOV Hold - Provider: Admin Adt - Reason: Transfer to a Procedural area)151 (NOV Unhold - Provider: Admin Adt) magnesium oxide (Mag-Ox) tablet 800 mg 800 mg, Oral, DAILY PRN, Starting on Fri10/20/23 at 1434, Until Fri10/22/23 at 1321, Hypomagnesemia, Administer for serum magnesium of 0.5 - 0.79 mMol/L, Routine 1637 (Given - Provider: Alyssa Shearer RN) 1310 ([facility] Hold - Provider: Admin Adt - Reason: Transfer to a Procedural area)151 ([facility] Unhold - Provider: Admin Adt) 0615 [...] last 24 to 72 hours., Routine 1310 ([facility] Hold - Provider: Admin Adt - Reason: Transfer to a Procedural area)151 ([facility] Unhold - Provider: Admin Adt) perflutren [...] hours for serum phosphate 2-2.4 mg/dL. 1310 ([facility] Hold - Provider: Admin Adt - Reason: Transfer to a Procedural area)1517 ([facility] Unhold - Provider: Admin Adt) sodium [...] Routine documented in this encounter Care Teams Bridal Stylist Sales Consultant Relationship Specialty Start Date End Date Marcio Devlin DO [address] [place] [address] PCP - General Family Medicine 11/11/17 documented as of this encounter
--- OUTSIDE RECORDS SUMMARY | 2024-10-04 16:04 | XMS_ITS | Encounter Summary ---
[place] [address] Care Team Providers Care Motor Vehicle Escort Driver Name Role Phone Marcio Devlin DO Primary Care Provider [phone] Reason for Visit * Auth/Cert (Routine) Specialty Diagnoses / Procedures Referred By Contac t Referred To Contact Diagnoses Complete heart block Bradycardia Procedures EMERGENCY AMARILISI Elle Lin MD [facility] [place] [address] [facility] Referral ID Status Reason Start Date Expiration Date Visits Re quested Visits Authorized [id number] 1 1 Encounter Details Date Type Department Care Team (Late st Contact Info) Description 10/21/2023 1:05 PM EST Anesthesia Event [place] [address] Davonte Raymond MD [facility] [place] [address] Rex Johns CRNA [facility] [place] [address] Anesthesia Record Procedure Summary Procedure Name Responsible [...] Eugenia Sosa RN 10/22/23 1034 by Ana Durham RN documented in this encounter Social History Tobacco Use Types Packs/Day Years Used Date Smoking Tobacco: Never Smokeless Tobacco: Never Alcohol Use Standard Drinks/Week Comments Yes 0 (1 standard drink = 0.6 oz pure alcohol) once every couple of months or less [facility] Utilities Answer Date Recorded In the past 12 months has th e Any.DO, gas, oil, or water [employer] threatened to shut off services in your [...] / Location: EP A-LAB ROOM 3 / [facility] EP LABS Anesthesia Start: 1305 Anesthesia Stop: 1513 Procedure: ELECTROPHYSIOLOGY PROCEDURE (Left) Diagnosis: (AFIB) Providers: Dilip Berumen MD Responsible Provider: Davonte Raymond MD Anesthesia Type: MAC ASA Status: 3 All Anesthesia Providers: Anesthesiologist: Davonte Raymond MD Steward/Stewardess Smoke Room: Ofelia Manuel MD Vitals Value Taken Time [...] disease Colonoscopy 09/19/08 (Dr. Shady Luz at [facility]) for surveillance for dysplasia. Areas of skip [...] WITH BX performed by YAQUELIN ESTRADA at [facility] ENDOSCOPY PRO COLONOSCOPY, BIOPSY N/A 03/04/2017 COLONOSCOPY FLEXIBLE, WITH BX (WRVU 3.66) performed by Raúl Austin MD at [facility] ENDOSCOPY PRO COLONOSCOPY, BIOPSY N/A 11/09/2019 COLONOSCOPY FLEXIBLE, WITH BX (WRVU 3.66) performed by Froilan Sahni MD at [facility] ENDOSCOPY PRO COLONOSCOPY, BIOPSY N/A 12/19/2020 COLONOSCOPY FLEXIBLE, WITH BX (WRVU 3.66) performed by Dajuan Rachel MD at [facility] ENDOSCOPY PRO COLONOSCOPY, BIOPSY N/A 09/24/2022 COLONOSCOPY FLEXIBLE, WITH BX (WRVU 3.66) performed by Dajuan Rachel MD at [facility] ENDOSCOPY PRO COLONOSCOPY, BIOPSY N/A 09/18/2023 COLONOSCOPY FLEXIBLE, WITH BX (WRVU 3.56) performed by Dajuan Rachel MD at [facility] ENDOSCOPY PRO COLONOSCOPY, DIAGNOSTIC N/A 11/09/2019 COLONOSCOPY, DIAGNOSTIC performed by Froilan Sahni MD at [facility] ENDOSCOPY PRO COLONOSCOPY, REMV LESN, SNARE 01/02/2011 COLONOSCOPY, POLYPECTOMY, REMOVAL LESION BY SNARE performed by YAQUELIN ESTRADA at [facility] ENDOSCOPY PRO COLONOSCOPY, REMV LESN, SNARE N/A 03/04/2017 COLONOSCOPY, POLYPECTOMY, REMOVAL LESION BY SNARE (WRVU 4.67) performed by Raúl Austin MD at [facility] ENDOSCOPY PRO COLONOSCOPY, REMV LESN, SNARE N/A 09/24/2022 COLONOSCOPY, POLYPECTOMY, REMOVAL LESION BY SNARE (WRVU 4.67) performed by Dajuan Rachel MD at [facility] ENDOSCOPY PRO COMBINED ANT/POST COLPORRHAPHY W CYSTO N/A 03/10/2018 COLPORRHAPHY ANTERIOR-POSTERIOR; INC CYSTOURETHROSCOPY (WRVU 14.44) performed by Liang Fong MD at [facility] MAIN OR PRO REVAGINAL PROLAPSE, UTEROSACRAL N/A 03/10/2018 COLPOPEXY, VAGINAL, INTRAPERITONEAL APPROACH (WRVU 11.66) [facility] SLING OPER STRES INCONTINENCE N/A 03/10/2018 URETHRAL SUSPENSION, SLING\FASCIA OR SYNTHETIC (WRVU 12.13) performed by Liang Fong MD at [facility] MAIN OR PRO VAG HYST, RMV TUBE/OVARY N/A 03/10/2018 HYSTERECTOMY, VAGINAL, REMOVAL TUBE(S) & OR OVARY(S) (WRVU 15.94) performed by Liang Fong MD at [facility] MAIN OR SALPINGECTOMY XR FLUORO INJECTION DRAINAGE JOINT LG RIGHT Right 03/09/2019 XR Fluoro Guided Joint Injection Large Right 03/09/2019 [facility] RAD XRAY Social History Tobacco Use [...] AM EST Hospital Encounter Non-[place] [phone] Arrived 11/12/2024 8:00 AM EST Appointment Mammography/[place] [phone] Gabe Fong MD [facility] [place] [address] 11/30/2024 2:30 PM EDT Office [place] [phone] Gabe Fong MD [facility] [address] [place] [address] 12/07/2024 2:30 PM EDT TH Visit (TeleHealth) Gastroenterology at [facility] [place] [address] Rosemarie Morrow APRN [facility] [place] [address] documented as of this encounter Visit Diagnoses Not on filedocumented in this encounter Administered Medications Inactive Administered Medications - up to 3 most recent administrations Medication Order MAR Action Action Date Dose Rate Site ePHEDrine sulfate (5 mg/mL) multi-dose injection Intravenous, PRN, Starting on Fri10/21/23 at 1335, Until Tu10/21/23 at 1513, Anesthesia Intra-op, Routine Given 10/21/2023 2:26 PM EST 10 mg Given 10/21/2023 2:21 PM EST 10 mg Given 10/21/2023 2:15 PM EST 10 mg metoprolol (LOPRESSOR) injection Intravenous, PRN, Starting on Fri10/21/23 at 1442, Until 10/21/23 at 1513, Anesthesia Intra-op, Routine Given 10/21/2023 2:42 PM EST 2.5 mg ondansetron (pf) (Zofran) (2 mg/mL) injection Intravenous, PRN, Starting on Fri10/21/23 at 1447, Until 10/21/23 at 1513, Anesthesia Intra-op, Routine Given 10/21/2023 2:47 PM EST 8 mg propofoL (Diprivan) (10 mg/mL) infusion Intravenous, CONTINUOUS PRN, Starting on Fri10/21/23 at 1322, Until 10/21/23 at 1513, Anesthesia Intra-op, Routine Rate/Dose Change 10/21/2023 2:58 PM EST 50 mcg/kg/min 19.5 mL/hr Rate/Dose Change 10/21/2023 2:45 PM EST 100 mcg/kg/min 39 mL/hr Rate/Dose Change 10/21/2023 1:49 PM EST 90 mcg/kg/min 35.1 mL/hr propofoL (Diprivan) 10 mg/mL bolus injection (Anesthesia) Intravenous, PRN, Starting on Tu10/21/23 at 1322, Until Fri10/21/23 at 1513, Anesthesia Intra-op Given 10/21/2023 2:44 PM EST 20 mg Given 10/21/2023 2:42 PM EST 20 mg Given 10/21/2023 1:49 PM EST 20 mg vancomycin (Vancocin) injection Intravenous, PRN, Starting on Fri10/21/23 at 1336, Until Fri10/21/23 at 1513, Anesthesia Intra-op, Routine Given 10/21/2023 1:36 PM EST 1.25 g documented in this encounter Care Teams Motor Vehicle Escort Driver Relationship Specialty Start Date End Date Marcio Devlin DO [address] [place] [address] PCP - General Family Medicine 11/11/17 documented as of this encounter
--- OUTSIDE RECORDS SUMMARY | 2024-10-04 16:05 | XMS_ITS | Encounter Summary ---
Author Organization [facility] [place] [address] Care Team Providers Care Group Work Program Aide Name Role Phone Marcio Devlin DO Primary Care Provider Reason for Visit * Reason Comments Specialty Pharmacy Review Rinvoq 15mg Encounter Details Date Type Department Care Team (Late st Contact Info) Description 04/28/2023 Specialty [place] [address] Tangela Agarwal, [employer] Social History Tobacco Use Types Packs/Day Years [...] Agarwal - 04/28/2023 11:59 PM EDT The [facility] has completed a benefits investigation for Kim Funes to review their eligibility to fill at [facility]. Per patient's medication list they are prescribed Rinvoq and the medication is not able to be filled at the [facility]. At this time insurance mandates this medication must be filled through [facility] documented in this encounter Plan of Treatment Upcoming Encounters Date Type Department Care Team (Late st Contact Info) Description 10/16/2024 10:00 AM EST Hospital Encounter Non[place] [address] Arrived 11/12/2024 8:00 AM EST Appointment Mammography/[place] [phone] Gabe Fong MD [facility] [address] 11/30/2024 2:30 PM EDT Office [place] [address] Gabe Fong MD [facility] [place] [address] 12/07/2024 2:30 PM EDT TH Visit (TeleHealth) [place] [phone] Rosemarie Morrow, SKIP [facility] [place] [address] documented as of this encounter Visit Diagnoses Not on filedocumented in this encounter Care Teams Group Work Program Aide Relationship Specialty Start Date End Date Marcio Devlin DO [address] [place] [address] PCP - General Family Medicine 11/11/17 documented as of this encounter
--- OUTSIDE RECORDS SUMMARY | 2024-10-04 16:05 | XMS_ITS | Encounter Summary ---
Author Organization [facility] [place] [address] Care Team Providers Care Network Applications Specialist Name Role Phone Marcio Devlin DO Primary Care Provider [phone] Encounter Details Date Type Department Care Team (Late st Contact Info) Description 09/10/2022 Telephone [place] [address] Lisa Dallas RN Social History [...] have an active approval with filling at [facility]. Kim will call [facility] again and see if she can get her medication. Requested she called back if not the case. She was due 08/20 for a dose. documented in this encounter Plan of Treatment Upcoming Encounters Date Type Department Care Team (Late st Contact Info) Description 10/16/2024 10:00 AM EST Hospital Encounter Non-[place] [phone] Arrived 11/12/2024 8:00 AM EST Appointment Mammography/[place] [address] Gabe Fong MD [facility] RHEUMATOLOGY [place] [id number] 11/30/2024 2:30 PM EDT Office [place] [address] Gabe Fong MD [facility] [place] [address] 12/07/2024 2:30 PM EDT TH Visit (TeleHealth) [place] [phone] Rosemarie Morrow APRN [facility] [place] [address] documented as of this encounter Visit Diagnoses Not on filedocumented in this encounter Care Teams Network Applications Specialist Relationship Specialty Start Date End Date Marcio Devlin DO [address] [place] [address] PCP - General Family Medicine 11/11/17 documented as of this encounter
--- OUTSIDE RECORDS SUMMARY | 2024-10-04 16:05 | XMS_ITS | Encounter Summary ---
Author Organization [place] [address] Care Team Providers Care Solvent Station Attendant Name Role Phone Marcio Devlin DO Primary Care Provider [phone] Reason for Visit * Auth/Cert (Routine) Specialty Diagnoses / Procedures Referred By Contlyn t Referred To Contact Diagnoses Restaging UC since changing to Stelara 03/2021 Procedures PRO COLONOSCOPY, DIAGNOSTIC COLONOSCOPY, DIAGNOSTIC Dajuan Rachel MD [facility] [place] [address] [facility] Referral ID Status Reason Start Date Expiration Date Visits Re quested Visits Authorized [id number] 1 1 Encounter Details Date Type Department Care Team (Latest Contact Info) Description 09/24/2022 9:56 AM EST - 09/24/2022 1:32 PM [facility] Hospital En[place] [address] Dajuan Rachel MD [facility] [place] [address] Discharge Disposition: Home Social History Tobacco Use [...] occurs, please contact your Doctor. Please call [phone] before 8pm Mon-Fri with problems, questions or concerns. If you call after 8pm or on weekends, call the Hospital at [phone] and ask to speak to the Work Manager intrusion analyst and the cane flume feeding machine operator will contact that person for [...] any problems. Where can you learn more? [facility] View your After Visit Summary and more online at [email or web address] If you would like to provide feedback about your hospital experience, please call the Office of Patient and Family Relations at . If you have received this After Visit Summary in error, please immediately return it in person to the department, or notify the [facility] Privacy Office by calling toll free at between the hours of 8AM and 5PM to arrange for our retrieval of the documents at no cost to you. Content Version: 12.2 ?? [id number] [employer]. Care instructions adapted under license by [employer]. If you have questions about a medical condition or this instruction, always ask your healthcare professional. [employer] disclaims any warranty or liability for your [...] by mouth daily. SUMAtriptan (IMITREX) 20 mg/actuation Grassflat, Non-Aerosol 1 spray as needed. 11/03/2017 metFORMIN [...] - 09/24/2022 1:32 PM EST Kim Funes [address] [place] [phone] October 20, 2022 Dear : Biopsies taken [...] concerns or questions. Sincerely, Freddy Rachel MD Professional Organizerchef german Co-Director, [facility] Section of Gastroenterology [place] [address] CC: Marcio Devlin, DO [address] [place] [address] documented in this encounter H&P Notes * [...] Hospital Encounter Non-[place] [address] Arrived 11/12/2024 8:00 AM EST Appointment Mammography/DXA at [place] [phone] Gabe Fong MD [facility] [address] [place] [id number] 11/30/2024 2:30 PM EDT Office [place] [address] Gabe Fong MD [facility] [address] [place] [id number] 12/07/2024 2:30 PM EDT TH Visit (TeleHealth) [place] [address] Rosemarie Morrow, [employer] DES[employer] [facility] [place] [address] documented as of this encounter Procedures Procedure [...] 12:29 PM EST Colonoscopy, Remv Lesn, Snare ([id number]) 09/24/2022 12:05 PM EST Ulcerative pancolitis with complication Colonoscopy, Biopsy ([id number]) 09/24/2022 12:05 PM EST Ulcerative pancolitis with complication COLONOSCOPY Routine 09/24/2022 10:54 AM EST documented in this encounter Results * Specimen to Pathology (09/24/2022 12:43 PM EST) AP Specimen 09/24/2022 12:4 3 PM EST 09/24/2022 12:43 PM EST Narrative [facility] - 09/24/2022 12:43 PM EST Specimen requisition ordered. ??Separate Pathology report to follow L Jose Rachel MD PATHOLOGY/CYTOLOGY O RDERADARLEEN [facility] [place] [address] * Specimen to Pathology (09/24/2022 12:43 PM EST) AP Specimen 09/24/2022 12:4 3 PM EST 09/24/2022 12:43 PM EST Narrative [facility] - 09/24/2022 12:43 PM EST Specimen requisition ordered. ??Separate Pathology report to follow L Jose Rachel MD PATHOLOGY/CYTOLOGY O IRMA Performing Organization Address [facility] Co de Phone Number [facility] [place] [address] * Specimen to Pathology (09/24/2022 12:43 PM EST) AP Specimen 09/24/2022 12:4 3 PM EST 09/24/2022 12:43 PM EST Narrative [facility] - 09/24/2022 12:43 PM EST Specimen requisition ordered. ??Separate Pathology report to follow L Jose Rachel MD PATHOLOGY/CYTOLOGY O IRMA Performing Organization Address [facility] Co de Phone Number [facility] [place] [address] * Specimen to Pathology (09/24/2022 12:43 PM EST) AP Specimen 09/24/2022 12:4 3 PM EST 09/24/2022 12:43 PM EST Narrative [facility] - 09/24/2022 12:43 PM EST Specimen requisition ordered. ??Separate Pathology report to follow L Jose Rachel MD PATHOLOGY/CYTOLOGY O IRMA Performing Organization Address [facility] Co de Phone Number [facility] [place] [address] * Specimen to Pathology (09/24/2022 12:43 PM EST) AP Specimen 09/24/2022 12:4 3 PM EST 09/24/2022 12:43 PM EST Narrative [facility] - 09/24/2022 12:43 PM EST Specimen requisition ordered. ??Separate Pathology report to follow L Jose Rachel MD PATHOLOGY/CYTOLOGY O IRMA [facility] [place] [address] * Surgical Pathology Report (09/24/2022 12:29 PM EST) Final Diagnosis [id number] ? Location: 4T; EA; A The signing [...] negative for dysplasia. CR-PX Electronically signed by: ?Justyna HYMAN, Iker Verified: ??09/27/2022 17:03 ??Pathologist Performed at: ??-[facility] Dept. of Pathology, [place] [address] Web Production Artist: Dg Brown MD, FCAP, ??CLIA Certificate: [id number] SPECIMEN(S) SUBMITTED A - Targeted biopsies at hepatic flexure, biopsy (4) B - Hepatic flexure polyp, excision (1) C - Targeted biopsies at 37cm, biopsy (4) D - Targeted biopsies at 15cm, biopsy (4) E - Targeted biopsies at ano-rectal junction, biopsy (4) CLINICAL INFORMATION [id number] female with ulcerative colitis SPECIMEN PROCESSING A [...] labeled E1. ??nrl 09/27/2022 5:03 PM EST [facility] GI Biopsy 09/24/2022 12:2 9 PM EST 09/24/2022 12:29 PM EST GI Biopsy 09/24/2022 12:2 9 PM EST 09/24/2022 12:29 PM EST GI Biopsy 09/24/2022 12:2 9 PM EST 09/24/2022 12:29 PM EST GI Biopsy 09/24/2022 12:2 9 PM EST 09/24/2022 12:29 PM EST GI Biopsy 09/24/2022 12:2 9 PM EST 09/24/2022 12:29 PM EST L Jose Rachel MD PATHOLOGY/CYTOLOGY O RDERABLES [facility] [place] [address] [facility] [place] [address] * COLONOSCOPY (09/24/2022 10:54 AM EST) COLONOSCOPY [facility] Endoscopy ___ Procedure Date: 09/24/2022 10:54 AM ? Patient Name: Kim Funes ? Date of : 1960 ? Age: 62 ? Order #: [id number] ? Instrument Name: [id number]- [id number] ? ___ Procedure: ? Colonoscopy Indications: ? High risk colon cancer ? surveillance: Ulcerative colitis Patient Profile: ? This is a 62 year old female. This ? patient has ulcerative pancolitis, ? is taking ustekinumab and is ? experiencing mild symptoms. Providers: ? L. Jose Rachel MD, Oksana Mendez, ? [place] Roberto [...] preparation was evaluated ? using the BBPS ([place] Bowel ? Preparation Scale) with scores of: [...] Oksana Mendez RN)1216 (Given - Provider: Oksana Mendez, RN)1220 (Given - Provider: Oksana Mendez RN) midazolam (pf) (Versed) (1 mg/mL) multi-dose injection (CANCELED) ONCE PRN, Starting on Fri09/24/22 at 1207, Until Fri09/24/22 at 1533, Intra-Operative (Intra-Procedure), Routine 1207 (Given - Provid er: Oksana Mendez RN)1210 (Given - Provider: Oksana Mendez RN)1213 (Given - Provider: Oksana Mendez RN)1216 (Given - Provider: Oksana Mendez RN) documented in this encounter Care Teams Solvent Station Attendant Relationship Specialty Start Date End Date Marcio Devlin DO [address] [place] [address] PCP - General Family Medicine 11/11/17 documented as of this encounter
--- OUTSIDE RECORDS SUMMARY | 2024-10-04 16:05 | XMS_ITS | Encounter Summary ---
Author Organization [facility] [place] [address] Care Team Providers Care Cold Molding Press Operator Name Role Phone Marcio Devlin DO Primary Care Provider [phone] Reason for Visit * Reason Comments Specialty Pharmacy Review Ustekinumab (S telara) 90mg/mL Syringe Encounter Details Date Type Department Care Team (Late st Contact Info) Description 12/02/2022 Specialty [place] [address] Alison Ortiz, [facility] Social History Tobacco Use Types [...] Ortiz - 12/02/2022 11:59 PM EDT The [facility] has completed a benefits investigation for Kim Funes to review their eligibility to fill at [facility]. Per patient's medication list they are prescribed Ustekinumab (Stelara) and the medication is not able to be filled at the [facility]. Kim Funes must fill with [facility] under current insurance plan's mandate. documented in this encounter Plan of Treatment Upcoming Encounters Date Type Department Care Team (Late st Contact Info) Description 10/16/2024 10:00 AM EST Hospital Encounter Non-[place] [address] Arrived 11/12/2024 8:00 AM EST Appointment Mammography/[place] [address] Gabe Fong MD [facility] [address] [place] [address] 11/30/2024 2:30 PM EDT [place] [phone] Gabe Fong MD [facility] [place] [address] 12/07/2024 2:30 PM EDT TH Visit (TeleHealth) [place] [address] Rosemarie Morrow APRN [facility] [place] [address] documented as of this encounter Visit Diagnoses Not on filedocumented in this encounter Care Teams Cold Molding Press Operator Relationship Specialty Start Date End Date Marcio Devlin DO [address] [place] [address] PCP - General Family Medicine 11/11/17 documented as of this encounter
--- OUTSIDE RECORDS SUMMARY | 2024-10-04 16:05 | XMS_ITS | Encounter Summary ---
Author Organization [facility] Address [facility] [place] [address] Care Team Providers Care Medical Collector Name Role Phone Marcio Devlin DO Primary Care Provider [phone] Encounter Details Date Type Department Care Team (Late st Contact Info) Description 03/10/2023 Orders [place] [address] Dajuan Rachel MD [facility] [place] [address] Social History Tobacco Use Types Packs/Day Years [...] AM EST Hospital Encounter Non-Invasive Cardiology Lab [place] [address] Arrived 11/12/2024 8:00 AM EST Appointment Mammography/DXA at [place] [address] Gabe Fong MD [facility] [address] 11/30/2024 2:30 PM EDT Office Visit Rheumatology at [address] Gabe Fong MD [facility] [address] 12/07/2024 2:30 PM EDT TH Visit (TeleHealth) Gastroenterology at [place] [address] Rosemarie Morrow, SKIP [facility] [place] [address] documented as of this encounter Visit Diagnoses Not on filedocumented in this encounter Care Teams Medical Collector Relationship Specialty Start Date End Date Marcio Devlin DO [address] [place] [address] PCP - General Family Medicine 11/11/17 documented as of this encounter
--- OUTSIDE RECORDS SUMMARY | 2024-10-04 16:05 | XMS_ITS | Encounter Summary ---
Author Organization [facility] [place] [address] Care Team Providers Care Biomedical Equipment Support Specialist Name Role Phone Marcio Devlin DO Primary Care Provider [phone] Reason for Visit * Reason Comments Specialty Pharmacy Review Ustekinumab (S telara) 90 mg/mL subcutaneous injection Encounter Details Date Type Department Care Team (Late st Contact Info) Description 10/11/2022 Specialty [place] [address] Alison Ortiz, [facility] Social History Tobacco Use Types Packs/Day [...] as of this encounter Progress Notes * Aliosn Ortiz - 10/11/2022 11:59 PM EST The [facility] has completed a benefits investigation for Kim Funes to review their eligibility to fill at [facility]. Per patient's medication list they are prescribed Ustekinumab (Stelara) and the medication is not able to be filled at the [facility]. Kim Funes must fill with [facility] under current insurance plan's mandate. documented in this encounter Plan of Treatment Upcoming Encounters Date Type Department Care Team (Late st Contact Info) Description 10/16/2024 10:00 AM EST Hospital Encounter Non[place] [address] Arrived 11/12/2024 8:00 AM EST Appointment Mammography/[place] [address] Gabe Fong MD [facility] [address] [place] [address] 11/30/2024 2:30 PM EDT Office [place] [address] Gabe Fong MD [facility] [place] [address] 12/07/2024 2:30 PM EDT TH Visit (TeleHealth) [place] [phone] Rosemarie Morrow APRN [facility] [place] [address] documented as of this encounter Visit Diagnoses Not on filedocumented in this encounter Care Teams Biomedical Equipment Support Specialist Relationship Specialty Start Date End Date Marcio Devlin DO [address] [place] [address] PCP - General Family Medicine 11/11/17 documented as of this encounter
--- OUTSIDE RECORDS SUMMARY | 2024-10-04 16:05 | XMS_ITS | Encounter Summary ---
Author Organization [facility] Address [facility] [place] [address] Care Team Providers Care Insurance Marketing Rep Name Role Phone Marcio Devlin DO Primary Care Provider [phone] Encounter Details Date Type Department Care Team (Late st Contact Info) Description 01/28/2023 3:18 PM EDT - 01/28/2023 11:59 PM EDT Hospital Encounter XRay at [address] [place] [address] Lola Haley, [facility] [place] [address] Inflammatory arthropathy; Arthralgia of both hands; Ankylosing [...] by mouth daily. SUMAtriptan (IMITREX) 20 mg/actuation Magn[place], Non-Aerosol 1 spray as needed. 11/03/2017 metFORMIN [...] AM EST Hospital Encounter Non-[place] [address] Arrived 11/12/2024 8:00 AM EST Appointment Mammography/[place] [address] Gabe Fong MD [facility] [place] [address] 11/30/2024 2:30 PM EDT Office [place] [address] Gabe Fong MD [facility] [place] [address] 12/07/2024 2:30 PM EDT TH Visit (TeleHealth) [place] [address] Rosemarie Morrow, [facility] [place] [address] documented as of this encounter Procedures Procedure [...] who have questions please contact the health skin care specialist that requested your imaging first. ? Electronically signed by: Anusha Ledezma MD, [facility] ([phone]), at 01/29/2023 7:29 AM Narrative 01/29/2023 7:29 [...] patients who have questions please contactthe health skin care specialist that requested your imaging first. Electronically signed by: Anusha Ledezma MD, [facility]([phone]), at 01/29/2023 7:29 AM Lola Haley DO [...] who have questions please contact the health skin care specialist that requested your imaging first. ? Electronically signed by: JERALD CHRISTY MD, [facility] ??([phone]), at 01/28/2023 4:20 PM Narrative 01/28/2023 4:20 [...] bilateral sacroiliac joints, present on prior MRI [id number]. No fracture. Pubic symphysis is congruent with [...] patients who have questions please contactthe health skin care specialist that requested your imaging first. Electronically signed by: JERALD CHRISTY MD, [facility]([phone]), at 01/28/2023 4:20 PM Lola Haley DO IMG DX ORDERABLES documented in this encounter Visit Diagnoses Diagnosis Inflammatory arthropathy Arthropathy, unspecified, site unspecified Arthralgia of both hands Ankylosing spondylitis of cervical region Ankylosing spondylitis documented in this encounter Care Teams Insurance Marketing Rep Relationship Specialty Start Date End Date Marcio Devlin DO [address] [place] [address] PCP - General Family Medicine 11/11/17 documented as of this encounter
--- OUTSIDE RECORDS SUMMARY | 2024-10-04 16:05 | XMS_ITS | Encounter Summary ---
Author Organization [facility] Address [facility] [place] [address] Care Team Providers Care Coin Machine Collector Name Role Phone Marcio Devlin DO Primary Care Provider [phone] Encounter Details Date Type Department Care Team (Latest Contact Info) Description 10/11/2022 10:00 AM EST TH Visit (TeleHealth) [place] [phone] Gabe Fong MD [facility] [place] [address] Ankylosing spondylitis of cervical region; Ulcerative colitis [...] AM EST Hospital Encounter Non-Invasive [place] [address] Arrived 11/12/2024 8:00 AM EST Appointment Mammography/[place] [address] Gabe Fong MD [facility] [address] [place] [id number] 11/30/2024 2:30 PM EDT Office [place] [address] Gabe Fong MD [facility] [place] [address] 12/07/2024 2:30 PM EDT TH Visit (TeleHealth) [place] [address] Roseamrie Morrow APRN [facility] [place] [address] documented as of this encounter Visit Diagnoses [...] Cervicalgia documented in this encounter Care Teams Coin Machine Collector Relationship Specialty Start Date End Date Marcio Devlin DO [address] [place] [address] PCP - General Family Medicine 11/11/17 documented as of this encounter
--- OUTSIDE RECORDS SUMMARY | 2024-10-04 16:05 | XMS_ITS | Encounter Summary ---
Author Organization [facility] [place] [address] Care Team Providers Care Sampler Ovens Name Role Phone Marcio Devlin DO Primary Care Provider [phone] Reason for Referral * Occupational Therapy (Routine) - Closed Specialty Diagnoses / Procedures Referred By Missy escalera Referred To Contact Occupational Therapy Diagnoses Inflammatory arthropathy Arthralgia of both hands Camila Alex MD [facility] [address] [facility] [address] [place] [address] Referral ID Status Reason Start Date Expiration Date V isits Requested Visits Authorized [id number] Closed Evaluate and Treat 01/28/2023 01/28/2024 100 100 Encounter Details Date Type Department Care Team (Latest Contact Info) Description 01/28/2023 2:30 PM EDT Procedure [place] [address] Camila Alex MD [facility] [address] Ankylosing spondylitis of cervical region; [...] Images are available on the Rheumatology Image Ends Breakage Clerk Archive. Images of the right hand [...] AM EST Hospital Encounter Non-Invasive [place] [address] Arrived 11/12/2024 8:00 AM EST Appointment Mammography/[place] [address] Gabe Fong MD [facility] [place] [address] 11/30/2024 2:30 PM EDT Office [place] [address] Gabe Fong MD [facility] [place] [address] 12/07/2024 2:30 PM EDT TH Visit (TeleHealth) [place] [address] Rosemarie Morrow APRN [facility] [place] [address] Scheduled Referrals Name Type Priority Associated Diagnoses [...] who have questions please contact the health infant childcare provider that requested your imaging first. ? [...] patients who have questions please contactthe health infant childcare provider that requested your imaging first. Lola Haley [...] who have questions please contact the health infant childcare provider that requested your imaging first. ? [...] bilateral sacroiliac joints, present on prior MRI [id number]. No fracture. Pubic symphysis is congruent with [...] patients who have questions please contactthe health infant childcare provider that requested your imaging first. Lola Haley [...] spondylitis documented in this encounter Care Teams Sampler Ovens Relationship Specialty Start Date End Date Marcio Devlin DO [address] [place] [address] PCP - General Family Medicine 11/11/17 documented as of this encounter
--- OUTSIDE RECORDS SUMMARY | 2024-10-04 16:05 | XMS_ITS | Encounter Summary ---
Author Organization [facility] [place] [address] Care Team Providers Care Rail Washer Name Role Phone Marcio Devlin DO Primary Care Provider [phone] Reason for Visit * Occupational Therapy (Routine) - Closed Specialty Diagnoses / Procedures Referred By Missy escalera Referred To Contact Occupational Therapy Diagnoses Inflammatory arthropathy Arthralgia of both hands Camila Alex MD [facility] [place] [address] [facility] [address] [place] [address] Referral ID Status Reason Start Date Expiration Date V isits Requested Visits Authorized [id number] Closed Evaluate and Treat 01/28/2023 01/28/2024 100 100 Encounter Details Date Type Department Care Team (Late st Contact Info) Description 02/25/2023 8:30 AM EDT Office Visit Occupational Therapy at [facility] [address] [place] [address] Sowmya Delatorre, OT Inflammatory arthropathy [...] 1. 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 Do heavy stump shooter (eg wash baez, wash floors) Mild difficulty [...] move your arm freely (eg playing frisbee, [place], etc) Mild difficulty 20. Manage transportation needs [...] Small Finger 0/90 0/86 0/60 DPC Strength: Evs Manager Testing with Dynamometer setting #2 Pinch Testing with Pinch Gauge Right Left Evs Manager setting 2 44.9, 39.5, 49.4 47.3, 44.2, 48.7 Evs Manager Average 44.6 46.7 Truong 14 14 3 Pt 14 10 Tip 14 10 Treatment Today: Evaluation MODERATE Complexity (23359) Educated patient in etiology and biomechanics as [...] AM EST Hospital Encounter Non-[place] [address] Arrived 11/12/2024 8:00 AM EST Appointment Mammography/[place] [address] Gabe Fong MD [facility] [place] [address] 11/30/2024 2:30 PM EDT Office [place] [address] Gabe Fong MD [facility] [place] [place] [address] 12/07/2024 2:30 PM EDT TH Visit (TeleHealth) [place] [address] Rosemarie Morrow APRN [facility] [place] [address] Scheduled Referrals Name Type Priority Associated Diagnoses Order Schedule Referral to Occupational Therapy Outpatient Referral Routine Inflammatory arthropathy Arthralgia of both hands Ordered: 01/28/2023 documented as of this encounter Visit Diagnoses Diagnosis Inflammatory arthropathy Arthropathy, unspecified, site unspecified documented in this encounter Care Teams Rail Washer Relationship Specialty Start Date End Date Marcio Devlin DO [address] [place] [address] PCP - General Family Medicine 11/11/17 documented as of this encounter
--- OUTSIDE RECORDS SUMMARY | 2024-10-04 16:05 | XMS_ITS | Encounter Summary ---
Author Organization [facility] [place] [address] Care Team Providers Care Manager Compensation Name Role Phone Marcio Devlin DO Primary Care Provider [phone] Reason for Visit * Reason Comments Specialty Pharmacy Review Upadacitinib ( Rinvoq) 15mg Tablet Encounter Details Date Type Department Care Team (Late st Contact Info) Description 03/06/2023 Specialty [place] [address] Alison Ortiz, [facility] Social History Tobacco Use Types Packs/Day [...] Ortiz - 03/06/2023 11:59 PM EDT The [facility] has completed a benefits investigation for Kim Funes to review their eligibility to fill at [facility]. Per patient's medication list they are prescribed Rinvoq and the medication is not able to be filled at the [facility]. Kim Funes must fill with [facility] under current insurance plan's mandate. documented in this encounter Plan of Treatment Upcoming Encounters Date Type Department Care Team (Late st Contact Info) Description 10/16/2024 10:00 AM EST Hospital Encounter Non-[place] [address] Arrived 11/12/2024 8:00 AM EST Appointment Mammography[place] [address] Gabe Fong MD [facility] [address] [place] [id number] 11/30/2024 2:30 PM EDT Office [place] [address] Gabe Fong MD [facility] [place] [address] 12/07/2024 2:30 PM EDT TH Visit (TeleHealth) [place] [address] Rosemarie Morrow APRN [facility] [place] [place] [address] documented as of this encounter Visit Diagnoses Not on filedocumented in this encounter Care Teams Manager Compensation Relationship Specialty Start Date End Date Marcio Devlin DO [address] [place] [address] PCP - General Family Medicine 11/11/17 documented as of this encounter
--- OUTSIDE RECORDS SUMMARY | 2024-10-04 16:05 | XMS_ITS | Encounter Summary ---
Author Organization [facility] [place] [address] Care Team Providers Care Manager Water Wastewater Name Role Phone Marcio Devlin DO Primary Care Provider [phone] Encounter Details Date Type Department Care Team (Late st Contact Info) Description 03/17/2023 Orders [place] [address] Jarad Srivastava PA Medication monitoring encounter Social History Tobacco Use [...] AM EST Hospital Encounter [place] [address] Arrived 11/12/2024 8:00 AM EST Appointment Mammography/[place] [address] Gabe Fong MD [facility] [place] [address] 11/30/2024 2:30 PM EDT Office Visit Rheumatology at [place] [phone] Gabe Fong MD [facility] [place] [address] 12/07/2024 2:30 PM EDT TH Visit (TeleHealth) Gastroenterology at [place] [phone] Rosemarie Morrow APRN [facility] [place] [address] documented as of this encounter Visit Diagnoses Diagnosis Medication monitoring encounter Encounter for therapeutic drug monitoring documented in this encounter Care Teams Manager Water Wastewater Relationship Specialty Start Date End Date Marcio Devlin DO [address] [place] [address] PCP - General Family Medicine 11/11/17 documented as of this encounter
--- OUTSIDE RECORDS SUMMARY | 2024-10-04 16:05 | XMS_ITS | Encounter Summary ---
Author Organization [facility] [place] [address] Care Team Providers Care Police Guard Name Role Phone Marcio Devlin DO Primary Care Provider [phone] Reason for Visit * Reason Comments Specialty Pharmacy Review Ustekinumab (S telara) 90mg/mL Syringe Encounter Details Date Type Department Care Team (Late st Contact Info) Description 01/28/2023 Specialty [place] [address] Alison Ortiz, [facility] Social History Tobacco Use Types Packs/Day [...] Ortiz - 01/28/2023 11:59 PM EDT The [facility] has completed a benefits investigation for Kim Funes to review their eligibility to fill at [facility]. Per patient's medication list they are prescribed Stelara and the medication is not able to be filled at the [facility]. Kim Funes must fill with Stelara under current insurance plan's mandate. documented in this encounter Plan of Treatment Upcoming Encounters Date Type Department Care Team (Late st Contact Info) Description 10/16/2024 10:00 AM EST Hospital Encounter Non-Invasive [place] [address] Arrived 11/12/2024 8:00 AM EST Appointment Mammography/[place] [address] Gabe Fong MD [facility] [address] [place] [address] 11/30/2024 2:30 PM EDT Office [place] [address] Gabe Fong MD [facility] [place] [address] 12/07/2024 2:30 PM EDT TH Visit (TeleHealth) [place] [address] Rosemarie Morrow APRN [facility] [place] [address] documented as of this encounter Visit Diagnoses Not on filedocumented in this encounter Care Teams Police Guard Relationship Specialty Start Date End Date Marcio Devlin DO [address] [place] [address] PCP - General Family Medicine 11/11/17 documented as of this encounter
--- OUTSIDE RECORDS SUMMARY | 2024-10-04 16:05 | XMS_ITS | Encounter Summary ---
Author Organization [facility] [place] [address] Care Team Providers Care Long Wall Mining Machine Helper Name Role Phone Marcio Devlin DO Primary Care Provider [phone] Encounter Details Date Type Department Care Team (Latest Contact Info) Description 12/02/2022 9:00 AM EDT TH Visit (TeleHealth) [place] [address] Gabe Fong MD [facility] [address] [place] [address] Ankylosing spondylitis of cervical region; Ulcerative colitis [...] increased work of breathing AO x3 Hands ipzz-feonlwpi-anrc PIP swelling pointing to the PIPs as [...] methotrexate-will not help with axial symptoms -Ultrasound xwgl-upadwg-ia clinic High risk medication high feng of [...] AM EST Hospital Encounter Non-Invasive Cardiology Lab [place] [phone] Arrived 11/12/2024 8:00 AM EST Appointment Mammography/[place] [address] Gabe Fong MD [facility] [place] [address] 11/30/2024 2:30 PM EDT Office Visit Rheumatology at [place] [phone] Gabe Fong MD [facility] [place] [address] 12/07/2024 2:30 PM EDT TH Visit (TeleHealth) [place] [address] Rosemarie Morrow APRN [facility] [place] [address] documented as of this encounter Visit Diagnoses Diagnosis Ankylosing spondylitis of cervical region Ankylosing spondylitis Ulcerative colitis without complications, unspecified location High risk medication use Encounter for long-term (current) use of other medications Primary osteoarthritis of both hips Primary localized osteoarthrosis, pelvic region and thigh 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 Arthralgia of both hands documented in this encounter Care Teams Long Wall Mining Machine Helper Relationship Specialty Start Date End Date Marcio Devlin DO [address] [place] [address] PCP - General Family Medicine 11/11/17 documented as of this encounter
--- OUTSIDE RECORDS SUMMARY | 2024-10-04 16:05 | XMS_ITS | Encounter Summary ---
Author Organization [facility] [place] [address] Care Team Providers Care Turbine Inspector Name Role Phone Marcio Devlin DO Primary Care Provider [phone] Encounter Details Date Type Department Care Team (Latest Contact Info) Description 04/28/2023 4:00 PM EDT TH Visit (TeleHealth) [place] [address] Dajuan Rachel MD [facility] [place] [address] Ulcerative pancolitis with complication Social History Tobacco [...] 2. Please have routine labs checked at [facility] every 2 weeks for [...] disease Colonoscopy 09/19/08 (Dr. Shady Luz at [facility]) for surveillance for dysplasia. [...] 2020 - severe involvement of L colon, ivvz-yh-hmuimgft involvement of transverse and R colon. Worse compared to last exam. SSA at hepatic flexure Adalimumab level (independence) was 12.7 Switched to Stelara ( 03/21/21, first infusion dose) d/t Lost of response to Humira. Stopped Uceris and sulfasalazine in January 2021. [place] 09/2022 - tubular featureless L colon with [...] week. 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 Has had a good summer. Got 6 [...] review of prior records): Reviewed labs from [facility] 03/24/23. BMP notable for creatinine of 1.2. [...] 2. Please have routine labs checked at [facility] every 2 weeks for 2 months after starting Rinvoq. 3. Approximately 8 weeks after starting Rinvoq, please have cholesterol (lipids) checked 4. Plan on repeat colonoscopy in September to make sure that still in remission on Rinvoq 5. Follow-up in the office or via telehealth in 6 months with Delilah Morrow APRN The patient was located in [place] at the time of their visit. TIME SPENT Time spent during encounter with patient including counselin minutes An additional 10 minutes were spent before and after the visit on this same day in preparation for the appointment, ordering tests and/or prescriptions, communicating with referring providers and completing documentation Approximate total time devoted to this single encounter: 20 L. Jose Rachel MD Deli Clerksteam and gas turbine assembler Co-Director, [facility] Section of Gastroenterology [place] [address] documented in this encounter Plan of Treatment Upcoming Encounters Date Type Department Care Team (Late st Contact Info) Description 10/16/2024 10:00 AM EST Hospital Encounter Non-Invasive [place] [address] Arrived 11/12/2024 8:00 AM EST Appointment Mammography/[place] [address] Gabe Fong MD [facility] [place] [address] 11/30/2024 2:30 PM EDT Office [place] [address] Gabe Fong MD [facility] [place] [address] 12/07/2024 2:30 PM EDT TH Visit (TeleHealth) [place] [address] Rosemarie Morrow APRN [facility] [place] [address] Scheduled Orders Name Type Priority Associated Diagnoses Orde r Schedule ENDOSCOPY CASE REQUEST: COLONOSCOPY, DIAGNOSTIC (WRVU 3.26) Procedures Routine Ulcerative pancolitis with complication Ordered: 04/28/2023 documented as of this encounter Visit Diagnoses Diagnosis Ulcerative pancolitis with complication documented in this encounter Care Teams Turbine Inspector Relationship Specialty Start Date End Date Marcio Devlin DO [address] [place] [address] PCP - General Family Medicine 11/11/17 documented as of this encounter
--- OUTSIDE RECORDS SUMMARY | 2024-10-04 16:05 | XMS_ITS | Encounter Summary ---
Author Organization [facility] [place] [address] Care Team Providers Care Rn Occupational Name Role Phone Marcio Devlin DO Primary Care Provider [phone] Encounter Details Date Type Department Care Team (Late st Contact Info) Description 03/21/2023 Orders [place] [address] Sabrina Casarez RN Social History Tobacco Use [...] AM EST Hospital Encounter Non-Invasive [place] [address] Arrived 11/12/2024 8:00 AM EST Appointment Mammography/DXA at [address] Gabe Fong MD [facility] [place] [address] 11/30/2024 2:30 PM EDT Office Visit Rheumatology at [place] [phone] Gabe Fong MD [facility] [place] [address] 12/07/2024 2:30 PM EDT TH Visit (TeleHealth) Gastroenterology at [place] [phone] Rosemarie Morrow APRN [facility] [place] [address] documented as of this encounter Visit Diagnoses Not on filedocumented in this encounter Care Teams Rn Occupational Relationship Specialty Start Date End Date Marcio Devlin DO [address] [place] [address] PCP - General Family Medicine 11/11/17 documented as of this encounter
--- OUTSIDE RECORDS SUMMARY | 2024-10-04 16:05 | XMS_ITS | Encounter Summary ---
Author Organization [facility] [place] [address] Care Team Providers Care Upper Cutter Out Name Role Phone Marcio Devlin DO Primary Care Provider [phone] Encounter Details Date Type Department Care Team [...] Hospital Encounter Non-Invasive Cardiology Lab [place] [address] Arrived 11/12/2024 8:00 AM EST Appointment Mammography/DXA at [address]1000 Gabe Fong MD [facility] [place] [address] 11/30/2024 2:30 PM EDT Office [place] [address] Gabe Fong MD [facility] [place] [address] 12/07/2024 2:30 PM EDT TH Visit (TeleHealth) Gastroenterology at [address]1000 Rosemarie Morrow APRN [facility] [place] [address] documented as of this encounter Visit Diagnoses Not on filedocumented in this encounter Care Teams Upper Cutter Out Relationship Specialty Start Date End Date Marcio Devlin DO [address] [place] [address] PCP - General Family Medicine 11/11/17 documented as of this encounter
--- OUTSIDE RECORDS SUMMARY | 2024-10-04 16:05 | XMS_ITS | Encounter Summary ---
Author Organization [facility] Address [facility] [place] [address] Care Team Providers Care Staffing Rn Name Role Phone Marcoi Devlin DO Primary Care Provider [phone] Encounter Details Date Type Department Care Team (Late st Contact Info) Description 03/13/2023 Refill [place] [address] Gabe Fong MD [facility] [place] [address] Social History Tobacco Use Types Packs/Day Years [...] AM EST Hospital Encounter Non-Invasive Cardiology Lab [place] [address] Arrived 11/12/2024 8:00 AM EST Appointment Mammography/DXA at [address]1000 Gabe Fong MD [facility] [address] [place] [address] 11/30/2024 2:30 PM EDT Office Visit Rheumatology at [place] [phone] Gabe Fong MD [facility] [address] [place] [address] 12/07/2024 2:30 PM EDT TH Visit (TeleHealth) Gastroenterology at [address]1000 Rosemarie Morrow, SKIP [facility] [place] [address] documented as of this encounter Visit Diagnoses Not on filedocumented in this encounter Care Teams Staffing Rn Relationship Specialty Start Date End Date Marcio Devlin DO [address] [place] [address] PCP - General Family Medicine 11/11/17 documented as of this encounter
--- OUTSIDE RECORDS SUMMARY | 2024-10-04 16:05 | XMS_ITS | Encounter Summary ---
Author Organization [facility] [place] [address] Care Team Providers Care Senior Sql Server Dba Name Role Phone Marcio Devlin DO Primary Care Provider Reason for Visit * Reason Comments Medication Management Encounter Details Date Type Department Care Team (Late st Contact Info) Description 03/17/2023 Specialty [place] [address] Francisca Olivas, [facility] [...] this encounter Progress Notes * Francisca Olivas [facility] - 03/17/2023 1:58 PM EDT Specialty Pharmacy Initial Consultation; Francisca Olivas [facility] Comprehensive Medication Management (CMM) Kim Stricklandeneuve Diagnosis: [...] yes - pt needs labs sent to [facility] Patient understands no changes to current drug regimen were made at the appointment and that [facility] isproviding recommendations (summary located at top of note) for provider review and follow up. Francisca Olivas RPH 03/17/23 2:04 PM documented in this encounter Plan of Treatment Upcoming Encounters Date Type Department Care Team (Late st Contact Info) Description 10/16/2024 10:00 AM EST Hospital Encounter Non-Invasive [place] [phone] Arrived 11/12/2024 8:00 AM EST Appointment Mammography/DXA at [place] [phone] Gabe Fong MD [facility] [address] [place] [address] 11/30/2024 2:30 PM EDT Office [place] [address] Gabe Fong MD [facility] [address] [place], [place] [address] 12/07/2024 2:30 PM EDT TH Visit (TeleHealth) Gastroenterology at [place] [phone] Rosemarie Morrow, SKIP [facility] [place] [address] documented as of this encounter Visit Diagnoses Not on filedocumented in this encounter Care Teams Senior Sql Server Dba Relationship Specialty Start Date End Date Marcio Devlin DO [address] [facility] [address] PCP - General Family Medicine 11/11/17 documented as of this encounter
--- OUTSIDE RECORDS SUMMARY | 2024-10-04 16:05 | XMS_ITS | Encounter Summary ---
Author Organization [facility] [place] [address] Care Team Providers Care Gold Burnisher Name Role Phone Marcio Devlin DO Primary Care Provider [phone] Encounter Details Date Type Department Care Team (Late st Contact Info) Description 03/25/2023 [place] [address] Francisca Olivas, [facility] Social History Tobacco Use Types [...] AM EST Hospital Encounter Non[place] [address] Arrived 11/12/2024 8:00 AM EST Appointment Mammography/DXA at [address]1000 Gabe Fong MD [facility] [place] [address] 11/30/2024 2:30 PM EDT Office Visit Rheumatology at [place] [phone] Gabe Fong MD [facility] [address] 12/07/2024 2:30 PM EDT TH Visit (TeleHealth) Gastroenterology at [place] [phone] Rosemarie Morrow APRN [facility] [place] [address] documented as of this encounter Visit Diagnoses Not on filedocumented in this encounter Care Teams Gold Burnisher Relationship Specialty Start Date End Date Marcio Devlin DO [address] [place] [address] PCP - General Family Medicine 11/11/17 documented as of this encounter
--- OUTSIDE RECORDS SUMMARY | 2024-10-04 16:05 | XMS_ITS | Encounter Summary ---
Author Organization [facility] [place] [address] Care Team Providers Care Online Health And Fitness Coach Name Role Phone Marcio Devlin DO Primary Care Provider [phone] Reason for Visit * Auth/Cert (Routine) Specialty Diagnoses / Procedures Referred By Contlyn t Referred To Contact Diagnoses Restaging UC since changing to Stelara 03/2021 Procedures PRO COLONOSCOPY, DIAGNOSTIC COLONOSCOPY, DIAGNOSTIC Dajuan Rachel MD [facility] [place] [address] RUST Referral ID Status Reason Start Date Expiration Date Visits Re quested Visits Authorized [id number] 1 1 Encounter Details Date Type Department Care Team (Late st Contact Info) Description 09/24/2022 11:00 AM EST - 09/24/2022 12:00 PM EST Surgery Gastro[place]ology [place] [address] Dajuan Rachel MD [facility] [place] [address] COLONOSCOPY FLEXIBLE, WITH BX (WRVU 3.56) Social [...] occurs, please contact your Doctor. Please call [phone] before 8pm Mon-Fri with problems, questions or concerns. If you call after 8pm or on weekends, call the Hospital at [phone] and ask to speak to the Range Examiner cargo and container inspector and the shaper operator will contact that person for you. [...] any problems. Where can you learn more? [facility] View your After Visit Summary and more online at [email or web address] If you would like to provide feedback about your hospital experience, please call the Office of Patient and Family Relations at . If you have received this After Visit Summary in error, please immediately return it in person to the department, or notify the [facility] Privacy Office by calling toll free at between the hours of 8AM and 5PM to arrange for our retrieval of the documents at no cost to you. Content Version: 12.2 ?? [id number] [employer]. Care instructions adapted under license by [facility]. If you have questions about a medical condition or this instruction, always ask your healthcare professional. [employer] disclaims any warranty or liability for your [...] by mouth daily. SUMAtriptan (IMITREX) 20 mg/actuation [place], Non-Aerosol 1 spray as needed. 11/03/2017 metFORMIN [...] - 09/24/2022 1:32 PM EST Kim Funes [address] [place] [phone] October 20, 2022 Dear : Biopsies taken [...] concerns or questions. Sincerely, Freddy Rachel MD Sales Support Engineerprogram director cable television Co-Director, [facility] Section of Gastroenterology [place] [address] CC: Marcio Devlin, DO [address] [place] [address] documented in this encounter H&P Notes * [...] AM EST Hospital Encounter Non-Invasive [place] [address] Arrived 11/12/2024 8:00 AM EST Appointment Mammography/[place] [address] Gabe Fong MD [facility] [address] [place] [address] 11/30/2024 2:30 PM EDT Office Visit Rheumatology at [place] [phone] Gabe Fong MD [facility] [address] [place] 8171856 12/07/2024 2:30 PM EDT TH Visit (TeleHealth) Gastroenterology [place] [address] Rosemarie Morrow, ELECTRONICS ENGINEERING TECHNICIAN [facility] [place] [address] documented as of this encounter Procedures Procedure [...] 12:29 PM EST Colonoscopy, Remv Lesn, Snare ([id number]) 09/24/2022 12:05 PM EST Ulcerative pancolitis with complication Colonoscopy, Biopsy ([id number]) 09/24/2022 12:05 PM EST Ulcerative pancolitis with complication COLONOSCOPY Routine 09/24/2022 10:54 AM EST documented in this encounter Results * Specimen to Pathology (09/24/2022 12:43 PM EST) AP Specimen 09/24/2022 12:4 3 PM EST 09/24/2022 12:43 PM EST Narrative [facility] - 09/24/2022 12:43 PM EST Specimen requisition ordered. ??Separate Pathology report to follow L Jose Rachel MD PATHOLOGY/CYTOLOGY O RDERABLES [facility] [place] [address] * Specimen to Pathology (09/24/2022 12:43 PM EST) AP Specimen 09/24/2022 12:4 3 PM EST 09/24/2022 12:43 PM EST Narrative [facility] - 09/24/2022 12:43 PM EST Specimen requisition ordered. ??Separate Pathology report to follow L Jose Rachel MD PATHOLOGY/CYTOLOGY O IRMA Performing Organization Address [facility] [place] [address] * Specimen to Pathology (09/24/2022 12:43 PM EST) AP Specimen 09/24/2022 12:4 3 PM EST 09/24/2022 12:43 PM EST Narrative [facility] - 09/24/2022 12:43 PM EST Specimen requisition ordered. ??Separate Pathology report to follow L Jose Rachel MD PATHOLOGY/CYTOLOGY O IRMA Performing Organization Address [facility] Co de Phone Number [facility] [place] [address] * Specimen to Pathology (09/24/2022 12:43 PM EST) AP Specimen 09/24/2022 12:4 3 PM EST 09/24/2022 12:43 PM EST Narrative [facility] - 09/24/2022 12:43 PM EST Specimen requisition ordered. ??Separate Pathology report to follow L Jose Rachel MD PATHOLOGY/CYTOLOGY O IRMA Performing Organization Address [facility] Co de Phone Number [facility] [place] [address] * Specimen to Pathology (09/24/2022 12:43 PM EST) AP Specimen 09/24/2022 12:4 3 PM EST 09/24/2022 12:43 PM EST Narrative [facility] - 09/24/2022 12:43 PM EST Specimen requisition ordered. ??Separate Pathology report to follow L Jose Rachel MD PATHOLOGY/CYTOLOGY O RDERABLES [facility] [place] [address] * Surgical Pathology Report (09/24/2022 12:29 PM EST) Final Diagnosis [id number] ? Location: 4T; EA11; A The signing [...] Iker Verified: ??09/27/2022 17:03 ??Pathologist Performed at: ??-[facility] Dept. of Pathology, [place] [address] Instrument Mechanic Weapons System: Dg Brown MD, FCAP, ??CLIA Certificate: [id number] SPECIMEN(S) SUBMITTED A - Targeted biopsies at hepatic flexure, biopsy (4) B - Hepatic flexure polyp, excision (1) C - Targeted biopsies at 37cm, biopsy (4) D - Targeted biopsies at 15cm, biopsy (4) E - Targeted biopsies at ano-rectal junction, biopsy (4) CLINICAL INFORMATION [id number] female with ulcerative colitis SPECIMEN PROCESSING A [...] RDERABLES [facility] [place] [address] [facility] [place] [address] * COLONOSCOPY (09/24/2022 10:54 AM EST) COLONOSCOPY [facility] Endoscopy ___ Procedure Date: 09/24/2022 10:54 AM ? Patient Name: Kim Funes ? Date of : 1960 ? Age: 62 ? Order #: [id number] ? Instrument Name: [id number] ? ___ Procedure: ? Colonoscopy Indications: ? [...] preparation was evaluated ? using the BBPS ([place] Bowel ? Preparation Scale) with scores of: [...] RN) documented in this encounter Care Teams Online Health And Fitness Coach Relationship Specialty Start Date End Date Marcio Devlin DO [address] [place] [address] PCP - General Family Medicine 11/11/17 documented as of this encounter
--- OUTSIDE RECORDS SUMMARY | 2024-10-04 16:05 | XMS_ITS | Encounter Summary ---
Author Organization [facility] [place] [address] Care Team Providers Care Central Office Associate Name Role Phone Marcio Devlin DO Primary Care Provider [phone] Encounter Details Date Type Department Care Team (Late st Contact Info) Description 10/10/2022 Telephone [place] [address] María Elena Jean, MA Social [...] No 05/03/2022 Housing Stability Vital Sign Answer Pleon e Recorded In the last 12 months, [...] Encounter Non-Invasive [place] [address] Arrived 11/12/2024 8:00 AM EST Appointment Mammography/DXA at [place] [phone] Gabe Fong MD [facility] [address] [place] [address] 11/30/2024 2:30 PM EDT Office Visit Rheumatology at [place] [phone] Gabe Fong MD [facility] [address] [place] [address] 12/07/2024 2:30 PM EDT TH Visit (TeleHealth) [place] [address] Rosemarie Morrow APRN [facility] [place] [address] documented as of this encounter Visit Diagnoses Not on filedocumented in this encounter Care Teams Central Office Associate Relationship Specialty Start Date End Date Marcio Devlin DO [address] [place] [address] PCP - General Family Medicine 11/11/17 documented as of this encounter
--- OUTSIDE RECORDS SUMMARY | 2024-10-04 16:05 | XMS_ITS | Encounter Summary ---
Author Organization [facility] [place] [address] Care Team Providers Care Ornamenter Hand Name Role Phone Marcio Devlin DO Primary Care Provider [phone] Reason for Visit * Reason Comments Prior Authorization Rinvoq 15mg Tablet Encounter Details Date Type Department Care Team (Late st Contact Info) Description 03/14/2023 Specialty [place] [address] Thelma Méndez, [facility] Social History Tobacco Use [...] Kim Funes Patient : 1960 Patient Address: [address] [place] [phone] (home) Medication Name: RINVOQ 15 MG TABLET,EXTENDED RELEASE Medication ID: [id number] Subscriber Insurance: [employer] ([facility]) Subscriber Insurance Comment: Fax: Physician: GABE ADEN Physician Comment: Sent Via: Fax Truong: Ref/Harmeet/YURIY#: EOC ID: [id number] Medication Strength Frequency Requested: Rinvoq 15mg Tablet [...] RINVOQ 15 MG TABLET,EXTENDED RELEASE Medication ID: [id number] Approval Dates: 03/14/2023 to 09/13/2023 Insurance requirements/notes: - Patient must fill with [facility]. Other Notes: None Case/Reference #: [id number] Approval notification Received via: Fax Copay: Unknown - Patient must fill with outside pharmacy Copay assistance: None Copay Notes: NA Insurance mandated Pharmacy: [facility] Fillable at [facility] Specialty Pharmacy: No Patient Notified: Left Voicemessage Pharmacy staff will be reaching out to the patient to inform them of their medication's [facility]. If applicable, a pharmacist will speak with the patient to offer our specialty pharmacy services and to arrange delivery of their medication. Thelma Teran 03/17/23 10:06 AM documented in this encounter Plan of Treatment Upcoming Encounters Date Type Department Care Team (Late st Contact Info) Description 10/16/2024 10:00 AM EST Hospital Encounter Non-[place] [address] Arrived 11/12/2024 8:00 AM EST Appointment Mammography/[place] [address] Gabe Aden MD [facility] [address] [place] [phone] 11/30/2024 2:30 PM EDT Office [place] [address] Gabe Aden MD [facility] [place] [address] 12/07/2024 2:30 PM EDT TH Visit (TeleHealth) [place] [address] Rosemarie Morrow APRN [facility] [place] [address] documented as of this encounter Visit Diagnoses Not on filedocumented in this encounter Care Teams Ornamenter Hand Relationship Specialty Start Date End Date Marcio Devlin DO [address] [place] [address] PCP - General Family Medicine 11/11/17 documented as of this encounter
--- OUTSIDE RECORDS SUMMARY | 2024-10-04 16:05 | XMS_ITS | Encounter Summary ---
Author Organization [facility] Address [facility] [place] [address] Care Team Providers Care Woods Manager Name Role Phone Marcio Devlin DO Primary Care Provider [phone] Encounter Details Date Type Department Care Team (Late st Contact Info) Description 02/05/2023 Orders [place] [address] Dajuan Rachel MD [facility] [place] [address] Social History Tobacco Use Types Packs/Day Years [...] Hospital Encounter Non-Invasive Cardiology Lab [place] [address] Arrived 11/12/2024 8:00 AM EST Appointment Mammography/DXA at [place] [address] Gabe Fong MD [facility] [place] [address] 11/30/2024 2:30 PM EDT Office Visit Rheumatology at [address]1000 Gabe Fong MD [facility] [place] [address] 12/07/2024 2:30 PM EDT TH Visit (TeleHealth) Gastroenterology at [place] [address] Rosemarie Morrow, SKIP [facility] [place] [address] documented as of this encounter Visit Diagnoses Not on filedocumented in this encounter Care Teams Woods Manager Relationship Specialty Start Date End Date Marcio Devlin DO [address] [place] [address] PCP - General Family Medicine 11/11/17 documented as of this encounter
--- OUTSIDE RECORDS SUMMARY | 2024-10-04 16:05 | XMS_ITS | Encounter Summary ---
Author Organization [facility] Address [facility] [place] [address] Care Team Providers Care Insurance Business Analyst Name Role Phone Marcio Devlin DO Primary Care Provider [phone] Encounter Details Date Type Department Care Team (Late st Contact Info) Description 12/06/2022 Ancillary Procedure Radiology Library at [facility] MARIA ALEJANDRA [place] [phone] Marcio Devlin DO [address] [place], [place] [phone] Social History Tobacco Use Types Packs/Day Years [...] Hospital Encounter Non-Invasive Cardiology Lab [place] [address] Arrived 11/12/2024 8:00 AM EST Appointment Mammography/DXA at [place] [address] Gabe Fong MD [facility] [address] [place] [address] 11/30/2024 2:30 PM EDT Office Visit Rheumatology at [place] [phone] Gabe Fong MD [facility] [place] [address] 12/07/2024 2:30 PM EDT TH Visit (TeleHealth) Gastroenterology at [address]1000 Rosemarie Morris APRN [facility] [place] [address] documented as of this encounter Procedures Procedure Name Priority Date/Time Associated Diagnosis Comments FILM LIBRARY STORAGE ONLY DX HAND Routine 12/06/2022 12:00 AM EDT documented in this encounter Results * Film Library- Storage Only DX Hand (12/06/2022 12:00 AM EDT) Narrative [facility] - 12/09/2022 10:02 AM EDT This exam is auto-finalizing. It's purpose is for storage only. Marcio Devlin DO [facility] FILM LIBRARY ORD ERABLES Performing Organization Address City/State/[facility] Co de Phone Number [place], [place] documented in this encounter Visit Diagnoses Not on filedocumented in this encounter Care Teams Insurance Business Analyst Relationship Specialty Start Date End Date Marcio Devlin DO [address] [place] [address] PCP - General Family Medicine 11/11/17 documented as of this encounter
--- OUTSIDE RECORDS SUMMARY | 2024-10-04 16:05 | XMS_ITS | Encounter Summary ---
Author Organization Counts Include [facility] Address [facility] [place] [address] Care Team Providers Care Nnps Name Role Phone Marcio Devlin DO Primary Care Provider [phone] Encounter Details Date Type Department Care Team (Latest Contact Info) Description 04/04/2023 10:30 AM EDT TH Visit (TeleHealth) [place] [address] Gabe Fong MD [facility] [address] [place] [address] High risk medication use; Medication monitoring encounter; [...] AM EST Hospital Encounter Non-[place] [address] Arrived 11/12/2024 8:00 AM EST Appointment Mammography/[place] [address] Gabe Fong MD [facility] [place] [address] 11/30/2024 2:30 PM EDT Office [place] [address] Gabe Fong MD [facility] [place] [address] 12/07/2024 2:30 PM EDT TH Visit (TeleHealth) [place] [address] Rosemarie Morrow APRN [facility] [place] [address] documented as of this encounter Visit Diagnoses Diagnosis High risk medication use Encounter for long-term (current) use of other medications Medication monitoring encounter Encounter for therapeutic drug monitoring Ulcerative colitis without complications, unspecified location Ankylosing spondylitis of cervical region Ankylosing spondylitis Primary osteoarthritis of both hips Primary localized osteoarthrosis, pelvic region and thigh documented in this encounter Care Teams Nnps Relationship Specialty Start Date End Date Marcio Devlin DO [address] [place] [address] PCP - General Family Medicine 11/11/17 documented as of this encounter
--- OUTSIDE RECORDS SUMMARY | 2024-10-04 16:05 | XMS_ITS | Encounter Summary ---
Author Organization [facility] [address] Care Team Providers Care Mortgage Loan Funder Name Role Phone Marcio Devlin DO Primary Care Provider [phone] Encounter Details Date Type Department Care Team [...] Hospital Encounter Non-Invasive Cardiology Lab [place] [address] Arrived 11/12/2024 8:00 AM EST Appointment Mammography/DXA at [address] Gabe Fong MD [facility] [place] [address] 11/30/2024 2:30 PM EDT Office [place] [address] Gabe Fong MD [facility] [place] [address] 12/07/2024 2:30 PM EDT TH Visit (TeleHealth) Gastroenterology at [address] Rosemarie Morrow APRN [facility] [place] [address] documented as of this encounter Visit Diagnoses Not on filedocumented in this encounter Care Teams Mortgage Loan Funder Relationship Specialty Start Date End Date Marcio Devlin DO [address] [place] [address] PCP - General Family Medicine 11/11/17 documented as of this encounter
--- OUTSIDE RECORDS SUMMARY | 2024-10-04 16:05 | XMS_ITS | Encounter Summary ---
Author Organization [place] [address] Care Team Providers Care Money Examiner Name Role Phone Marcio Devlin DO Primary Care Provider [phone] Reason for Visit * Reason Comments Medication Refill Encounter Details Date Type Department Care Team (Late st Contact Info) Description 02/17/2023 Refill [place] [address] Dajuan Rachel MD [facility] [place] [address] Ulcerative pancolitis without complication Social History Tobacco [...] AM EST Hospital Encounter Non-Invasive Cardiology Lab [place] [phone] Arrived 11/12/2024 8:00 AM EST Appointment Mammography/DXA at [place] [phone] Gabe Fong MD [facility] [place] [place] [address] 11/30/2024 2:30 PM EDT Office Visit Rheumatology at [place] [phone] Gabe Fong MD [facility] [address] [address] [place] [address] 12/07/2024 2:30 PM EDT TH Visit (TeleHealth) Gastroenterology at [place] [phone] Rosemarie Morrow APRN [facility] [place] [address] documented as of this encounter Visit Diagnoses Diagnosis Ulcerative pancolitis without complication documented in this encounter Care Teams Money Examiner Relationship Specialty Start Date End Date Marcio Devlin DO [address] [place], [place] [address] [address] PCP - General Family Medicine 11/11/17 documented as of this encounter
--- OUTSIDE RECORDS SUMMARY | 2024-10-04 16:05 | XMS_ITS | Encounter Summary ---
Author Organization [facility] [place] [address] Care Team Providers Care Discharge Specialist Name Role Phone Marcio Devlin DO Primary Care Provider [phone] Encounter Details Date Type Department Care Team [...] AM EST Hospital Encounter Non-Invasive Cardiology Lab [place] [address] Arrived 11/12/2024 8:00 AM EST Appointment Mammography/DXA at [address] Gabe Fong MD [facility] [place] [address] 11/30/2024 2:30 PM EDT Office [place] [address] Gabe Fong MD [facility] [place] [address] 12/07/2024 2:30 PM EDT TH Visit (TeleHealth) Gastroenterology at [address] Rosemarie Morrow APRN [facility] [address] documented as of this encounter Visit Diagnoses Not on filedocumented in this encounter Care Teams Discharge Specialist Relationship Specialty Start Date End Date Marcio Devlin DO [address] [place] [address] PCP - General Family Medicine 11/11/17 documented as of this encounter
--- OUTSIDE RECORDS SUMMARY | 2024-10-04 16:05 | XMS_ITS | Encounter Summary ---
Author Organization [facility] [place] [address] Care Team Providers Care Centrifugal Casting Machine Operator Name Role Phone Marcio Devlin DO Primary Care Provider [phone] Encounter Details Date Type Department Care Team [...] Hospital Encounter Non-Invasive Cardiology Lab [place] [address] Arrived 11/12/2024 8:00 AM EST Appointment Mammography/DXA at [address] Gabe Fong MD [facility] [place] [address] 11/30/2024 2:30 PM EDT Office [place] [address] Gabe Fong MD [facility] [place] [address] 12/07/2024 2:30 PM EDT TH Visit (TeleHealth) Gastroenterology at [address]1000 Rosemarie Morrow APRN [facility] [place] [address] documented as of this encounter Visit Diagnoses Not on filedocumented in this encounter Care Teams Centrifugal Casting Machine Operator Relationship Specialty Start Date End Date Marcio Devlin DO [address] [place] [address] PCP - General Family Medicine 11/11/17 documented as of this encounter
--- OUTSIDE RECORDS SUMMARY | 2024-10-04 16:05 | XMS_ITS | Encounter Summary ---
Author Organization [facility] [place] [address] Care Team Providers Care State Assessed Properties Director Name Role Phone Marcio Devlin DO Primary Care Provider [phone] Encounter Details Date Type Department Care Team [...] AM EST Hospital Encounter Non-Invasive Cardiology Lab [place] [address] Arrived 11/12/2024 8:00 AM EST Appointment Mammography/DXA at [address]1000 Gabe Fong MD [facility] [place] [address] 11/30/2024 2:30 PM EDT Office [place] [address] Gabe Fong MD [facility] [place] [address] 12/07/2024 2:30 PM EDT TH Visit (TeleHealth) Gastroenterology at [address] Rosemarie Morrow APRN [facility] [place] [address] documented as of this encounter Visit Diagnoses Not on filedocumented in this encounter Care Teams State Assessed Properties Director Relationship Specialty Start Date End Date Marcio Devlin DO [address] [place] [address] PCP - General Family Medicine 11/11/17 documented as of this encounter
--- OUTSIDE RECORDS SUMMARY | 2024-10-04 16:05 | XMS_ITS | Encounter Summary ---
Author Organization [facility] [address] Care Team Providers Care Extract Puller Name Role Phone Marcio Devlin DO Primary Care Provider [phone] Reason for Visit * Reason Comments Follow-up Encounter Details Date Type Department Care Team (Late st Contact Info) Description 03/06/2023 9:30 AM EDT Office Visit [place] [address] Gabe Fong MD [facility] [place] [address] Ulcerative colitis without complications, unspecified location; Ankylosing [...] AM EST Hospital Encounter Non-Invasive Cardiology Lab [address] Arrived 11/12/2024 8:00 AM EST Appointment Mammography/DXA at [place] [address] Gabe Fong MD [facility] [place] [address] 11/30/2024 2:30 PM EDT Office Visit Rheumatology at [address]1000 Gabe Fong MD [facility] [place] [address] 12/07/2024 2:30 PM EDT TH Visit (TeleHealth) Gastroenterology at [place] [phone] Rsoemarie Morrow APRN [facility] [address] documented as of this encounter Visit Diagnoses Diagnosis Ulcerative colitis without complications, unspecified location Ankylosing spondylitis of cervical region Ankylosing spondylitis Medication monitoring encounter Encounter for therapeutic drug monitoring High risk medication use Encounter for long-term (current) use of other medications documented in this encounter Care Teams Extract Puller Relationship Specialty Start Date End Date Marcio Devlin DO [address] [place] [address] PCP - General Family Medicine 11/11/17 documented as of this encounter
--- OUTSIDE RECORDS SUMMARY | 2024-10-04 16:05 | XMS_ITS | Encounter Summary ---
Author Organization [facility] [place] [address] Care Team Providers Care Advanced Seal Delivery System Name Role Phone Marcio Devlin DO Primary Care Provider [phone] Encounter Details Date Type Department Care Team (Late st Contact Info) Description 03/27/2023 Telephone [place] [address] Sabrina Casarez RN Social History [...] ing therapy ----- Message ----- From: Balwinder, Machine Brush Maker Sent: 03/26/2023 3:11 PM EDT To: Gabe Fong MD documented in this encounter Plan of Treatment Upcoming Encounters Date Type Department Care Team (Late st Contact Info) Description 10/16/2024 10:00 AM EST Hospital Encounter Non-[place]vasive [place] [address] Arrived 11/12/2024 8:00 AM EST Appointment Mammography/[place] [address] Gabe Fong MD [facility] [place] [address] 11/30/2024 2:30 PM EDT Office Visit [place] [address] Gabe Fong MD [facility] [place] [address] 12/07/2024 2:30 PM EDT TH Visit (TeleHealth) [place] [address] Rosemarie Morrow APRN [facility] [place] [address] documented as of this encounter Visit Diagnoses Not on filedocumented in this encounter Care Teams Advanced Seal Delivery System Relationship Specialty Start Date End Date Marcio Devlin DO [address] [place] [address] PCP - General Family Medicine 11/11/17 documented as of this encounter
--- OUTSIDE RECORDS SUMMARY | 2024-10-04 16:06 | XMS_ITS | Encounter Summary ---
Author Organization [facility] [place] [address] Care Team Providers Care Cartridge Feeder Name Role Phone Marcio Devlin DO Primary Care Provider [phone] Encounter Details Date Type Department Care Team (Latest Contact Info) Description 03/22/2022 1:57 PM EDT - 03/22/2022 11:59 PM EDT Hospital Encounter [place] [address] SOB (shortness of breath) Discharge [...] by mouth daily. SUMAtriptan (IMITREX) 20 mg/actuation [place], Non-Aerosol 1 spray as needed. 11/03/2017 metFORMIN [...] AM EST Hospital Encounter Non[place] [address] Arrived 11/12/2024 8:00 AM EST Appointment Mammography/DXA at [address]1000 Gabe Fong MD [facility] [place] [address] 11/30/2024 2:30 PM EDT Office Visit Rheumatology at [place] [phone] Gabe Fong MD [facility] [place] [address] 12/07/2024 2:30 PM EDT TH Visit (TeleHealth) Gastroenterology at [place] [phone] Rosemarie Morrow APRN [facility] [place] [address] documented as of this encounter Procedures Procedure [...] / FVC LLN 67 % COMPAS PFT VKW94-43 Actual Pre-BD 2.09 L/s COMPAS PFT CBR14-83 Pre-BD % of Predicted 91 % COMPAS PFT TDG91-22 Predicted 2.29 L/s COMPAS PFT OSB37-57 Pre-BD Z-Score -0.25 COMPAS PFT DLCO Hb [...] breath documented in this encounter Care Teams Cartridge Feeder Relationship Specialty Start Date End Date Marcio Devlin DO [address] [place] [address] PCP - General Family Medicine 11/11/17 documented as of this encounter
--- OUTSIDE RECORDS SUMMARY | 2024-10-04 16:06 | XMS_ITS | Encounter Summary ---
Author Organization [facility] [place] [address] Care Team Providers Care Research And Development Manager Name Role Phone Marcio Devlin DO Primary Care Provider [phone] Reason for Visit * Reason Comments Left Hip Pain Encounter Details Date Type Department Care Team (Late st Contact Info) Description 01/23/2022 3:00 PM EDT Office [place] [address] Saurabh Mercado MD [facility] [place] [address] Trochanteric bursitis of left hip Social History [...] subsidence, loosening, or periprosthetic complication. Questionnaire Responses: [facility] Surgical Postop Visit 01/16/2022 PROMIS-10 General Health [...] Choose Same Treatment Again Definitely yes Orthopeadics [facility] Response 01/16/2022 HOOS JR Scores 64.66 Spine [facility] Response 01/16/2022 HOOS JR Scores 64.66 Trochanteric [...] Signed: Alison Lobo MD 01/23/2022 * Saurabh Mecrado MD - 01/23/2022 3:00 PM EDT I performed a history and physical examination of the patient and discussed the management plan with Alsion Lobo MD. I also discussed the different [...] AM EST Hospital Encounter Non-Invasive [place] [address] Arrived 11/12/2024 8:00 AM EST Appointment Mammography/[place] [address] Gabe Fong MD [facility] [address] [place] [place] [address] 11/30/2024 2:30 PM EDT Office [place] [address] Gabe Fong MD [facility] [address] [place] [place] [address] 12/07/2024 2:30 PM EDT TH Visit (TeleHealth) [place] [address] Rosemarie Morrow, SKIP [facility] [place] [address] documented as of this encounter Visit Diagnoses Diagnosis Trochanteric bursitis of left hip Enthesopathy of hip region documented in this encounter Care Teams Research And Development Manager Relationship Specialty Start Date End Date Marcio Devlin DO [facility] [place] [address] [place] [address] PCP - General Family Medicine 11/11/17 documented as of this encounter
--- OUTSIDE RECORDS SUMMARY | 2024-10-04 16:06 | XMS_ITS | Encounter Summary ---
Author Organization [facility] [place] [address] Care Team Providers Care Tank Truck Loader Name Role Phone Marcio Devlin DO Primary Care Provider [phone] Encounter Details Date Type Department Care Team (Late st Contact Info) Description 05/07/2022 4:00 PM EDT Ancillary Procedure Radiology XRay at [facility] [address] [place] [address] Jorje Marquez DO Chronic bilateral low back pain without sciatica; [...] Hospital Encounter Non-Invasive Cardiology Lab [place] [phone] Arrived 11/12/2024 8:00 AM EST Appointment Mammography/DXA at [place] [phone] Gabe Fong MD [facility] [address] [place] [address] 11/30/2024 2:30 PM EDT Office [place] [address] Gabe Fong MD [facility] [address] [place] [address] 12/07/2024 2:30 PM EDT TH Visit (TeleHealth) Gastroenterology at [place] [phone] Rosemarie Morrow, SKIP [facility] [place] [address] documented as of this encounter Procedures Procedure [...] questions please contact the health child care that requested your imaging first. ? [...] have questions please contactthe health child care that requested your imaging first. Electronically signed by: Nba Alebrts MD, [facility]([phone]), at 05/07/2022 4:15 PM Jorje Marquez DO [...] questions please contact the health child care that requested your imaging first. ? Electronically signed by: Nba Alberts MD, [facility] ([phone]), at 05/07/2022 4:22 PM Narrative 05/07/2022 4:22 PM EDT EXAMINATION: XR LUMBAR SPINE 2 OR 3 VIEWS (GENERIC) CLINICAL HISTORY: chronic low back pain hx ankylosing spondylitis TECHNIQUE: Lumbar spine AP and lateral COMPARISON: August 24, 2015 FINDINGS: There are five men-efi-atiezjw lumbar-type vertebrae. The osseous structures are diffusely [...] August 24, 2015 FINDINGS: There are five slp-hdc-wfsstch lumbar-type vertebrae. The osseous structures are diffusely [...] have questions please contactthe health child care that requested your imaging first. Electronically signed by: Nba Alberts [facility]([phone]), at 05/07/2022 4:22 PM Jorje Marquez DO IMLakesha DX ORDERABLES documented in this encounter Visit Diagnoses Diagnosis Chronic bilateral low back pain without sciatica Ankylosing spondylitis of multiple sites in spine Ankylosing spondylitis Chronic bilateral thoracic back pain documented in this encounter Care Teams Tank Truck Loader Relationship Specialty Start Date End Date Marcio Devlin DO [address] [place] [address] PCP - General Family Medicine 11/11/17 documented as of this encounter
--- OUTSIDE RECORDS SUMMARY | 2024-10-04 16:06 | XMS_ITS | Encounter Summary ---
Author Organization [facility] [place] [address] Care Team Providers Care Slip Cover Operator Name Role Phone Marcio Devlin DO Primary Care Provider [phone] Reason for Visit * Reason Comments Specialty Pharmacy Review Ustekinumab (S telara) 90mg/mL Syringe Encounter Details Date Type Department Care Team (Late st Contact Info) Description 01/18/2022 Specialty [place] [address] Alison Ortzi, [facility] Social History Tobacco Use Types Packs/Day [...] Ortiz - 01/18/2022 11:59 PM EDT [facility] [...] AM EST Hospital Encounter Non-[place] [address] Arrived 11/12/2024 8:00 AM EST Appointment Mammography/DXA at [place] [phone] Gabe Fong MD [facility] [place] [address] 11/30/2024 2:30 PM EDT Office Visit Rheumatology at [place] [phone] Gabe Fong MD [facility] [place] [address] 12/07/2024 2:30 PM EDT TH Visit (TeleHealth) [place] [address] Rosemarie Morrow APRN [facility] [place] [address] documented as of this encounter Visit Diagnoses Not on filedocumented in this encounter Care Teams Slip Cover Operator Relationship Specialty Start Date End Date Marcio Devlin DO [address] [place] [address] PCP - General Family Medicine 11/11/17 documented as of this encounter
--- OUTSIDE RECORDS SUMMARY | 2024-10-04 16:06 | XMS_ITS | Encounter Summary ---
Author Organization [facility] [place] [address] Care Team Providers Care Electron Beam Photo Mask Technician Name Role Phone Marcio Devlin DO Primary Care Provider [phone] Encounter Details Date Type Department Care Team (Latest Contact Info) Description 05/10/2022 10:30 AM EDT TH Visit (TeleHealth) [place] [address] Gabe Fong MD [facility] [address] [place] [address] Ankylosing spondylitis of cervical region; Ulcerative colitis [...] AM EST Hospital Encounter Non-[place] [address] Arrived 11/12/2024 8:00 AM EST Appointment Mammography/DXA at [place] [phone] Gabe Fong MD [facility] [place] [address] 11/30/2024 2:30 PM EDT Office Visit Rheumatology at [place] [phone] Gabe Fong MD [facility] [place] [address] 12/07/2024 2:30 PM EDT TH Visit (TeleHealth) Gastroenterology at [place] [phone] Rosemarie Morrow APRN [facility] [place] [address] documented as of this encounter Visit Diagnoses [...] location documented in this encounter Care Teams Electron Beam Photo Mask Technician Relationship Specialty Start Date End Date Marcio Devlin DO [address] [place] [address] PCP - General Family Medicine 11/11/17 documented as of this encounter
--- OUTSIDE RECORDS SUMMARY | 2024-10-04 16:06 | XMS_ITS | Encounter Summary ---
Author Organization Formerly [facility], 1928–[address] [place] [address] Care Team Providers Care E Commerce Merchandising Coordinator Name Role Phone Marcio Devlin DO Primary Care Provider [phone] Reason for Referral * Diagnostic Test (Routine) - Closed Specialty Diagnoses / Procedures Referred By Contac t Referred To Contact Radiology Diagnoses Ankylosing spondylitis of cervical region Neck pain Decreased ROM of neck Procedures MRI Cervical Spine wo Contrast (Generic) Gabe Fong MD [facility] [place] [address] [place] [address] [place] [address] Referral ID Status Reason Start Date Expiration Date V isits Requested Visits Authorized [id number] Closed Specialty Service Requested 02/22/2022 08/24/2023 1 1 Reason for Visit * Diagnostic Test (Routine) - Closed Specialty Diagnoses / Procedures Referred By Contac t Referred To Contact Radiology Diagnoses Ankylosing spondylitis of cervical region Neck pain Decreased ROM of neck Procedures MRI Cervical Spine wo Contrast (Generic) Gabe Fong MD [facility] [place] [address] [place] [address] [place] [address] Referral ID Status Reason Start Date Expiration Date V isits Requested Visits Authorized [id number] Closed Specialty Service Requested 02/22/2022 08/24/2023 1 1 Encounter Details Date Type Department Care Team (Latest Contact Info) Description 03/08/2022 6:57 AM EDT - 03/08/2022 11:59 PM EDT Hospital Encounter MRI at [facility] [place] [phone] Gabe Fong MD [facility] [place]UMATOLOGY [place] [id number] Ankylosing spondylitis of cervical region; Neck pain; [...] by mouth daily. SUMAtriptan (IMITREX) 20 mg/actuation [place], Non-Aerosol 1 spray as needed. 11/03/2017 metFORMIN [...] AM EST Hospital Encounter Non-[place] [phone] Arrived 11/12/2024 8:00 AM EST Appointment Mammography/DXA at [place] [phone] Gabe Fong MD [facility] [place] [address] 11/30/2024 2:30 PM EDT Office [place] [address] Gabe Fong MD [facility] [place] [address] 12/07/2024 2:30 PM EDT TH Visit (TeleHealth) Gastroenterology at [place] [phone] Rosemarie Morrow APRN [facility] [place] [address] documented as of this encounter Procedures Procedure [...] have questions please contact the health career services manager that requested your imaging first. [...] who have questions please contactthe health career services manager that requested your imaging first. Gabe Fong MD IMG MRI ORDERABLES documented in this encounter Visit Diagnoses Diagnosis Ankylosing spondylitis of cervical region Ankylosing spondylitis Neck pain Cervicalgia Decreased ROM of neck documented in this encounter Care Teams E Commerce Merchandising Coordinator Relationship Specialty Start Date End Date Marcio Devlin DO [address] [place] [address] PCP - General Family Medicine 11/11/17 documented as of this encounter
--- OUTSIDE RECORDS SUMMARY | 2024-10-04 16:06 | XMS_ITS | Encounter Summary ---
Author Organization [facility] [place] [address] Care Team Providers Care Asbestos Cement Sheet Supervisor Name Role Phone Marcio Devlin DO Primary Care Provider [phone] Reason for Referral * Diagnostic Test (Routine) - Closed Specialty Diagnoses / Procedures Referred By Missy escalera Referred To Contact Radiology Diagnoses Chronic left hip pain Procedures MRI Hip wo Contrast Left (Generic) MRI Hip wwo Contrast Left MRI Hip wo Contrast Left (Generic) Gabe Fong MD [facility] [address] [place] [address] [facility] Rad Mri [address] [place] [address] Referral ID Status Reason Start Date Expiration Date V isits Requested Visits Authorized [id number] Closed Specialty Service Requested 12/25/2021 06/26/2023 1 1 Encounter Details Date Type Department Care Team (Late st Contact Info) Description 12/25/2021 Telephone [place] [address] Gabe Fong MD [facility] [address] [place] [address] Social History Tobacco Use Types [...] AM EST Hospital Encounter [place] [address] Arrived 11/12/2024 8:00 AM EST Appointment Mammography/DXA at [address] Gabe Fong MD [facility] [place] [address] 11/30/2024 2:30 PM EDT Office Visit Rheumatology at [place] [phone] Gabe Fong MD [facility] [place] [address] 12/07/2024 2:30 PM EDT TH Visit (TeleHealth) [place] [address] Rosemarie Morrow APRN [facility] [place] [address] documented as of this encounter Results * [...] questions please contact the health child care attendant that requested your imaging first. ? Electronically signed by: Anusha Ledezma MD, [facility] ([phone]), at 02/04/2022 4:47 PM Narrative 02/04/2022 4:47 PM EDT EXAMINATION: MRI HIP WO CONTRAST LEFT (GENERIC) CLINICAL HISTORY: Hip replacement, nerve damage suspected; UC arthritis with hip pain and signicant tedenterness to palpation UC arthritis with hip pain and signicant tedenterness to palpation TECHNIQUE: Noncontrast MRI of the left hip was performed using axial oblique, coronal and sagittal PD FS sequences. Full pelvis saoyy-uy-cwso axial T1, coronal T1 and STIR sequences [...] and sagittal PD FS sequences. Full pelvis xabjr-io-fmpy axialT1, coronal T1 and STIR sequences are [...] have questions please contactthe health child care attendant that requested your imaging first. Gabe Fong MD IMG MRI ORDERABLES documented in this encounter Visit Diagnoses Diagnosis Chronic left hip pain Pain in joint, pelvic region and thigh Chronic left hip pain Pain in joint, pelvic region and thigh documented in this encounter Care Teams Asbestos Cement Sheet Supervisor Relationship Specialty Start Date End Date Marcio Devlin DO [address] [place] [address] PCP - General Family Medicine 11/11/17 documented as of this encounter
--- OUTSIDE RECORDS SUMMARY | 2024-10-04 16:06 | XMS_ITS | Encounter Summary ---
Author Organization [facility] Address [facility] [place] [address] Care Team Providers Care Epic Application Coordinator Name Role Phone Marcio Devlin DO Primary Care Provider [phone] Reason for Visit * Reason Comments Back Pain Back and neck pain * Consultation (Routine) - Closed Specialty Diagnoses / Procedures Referred By Contlyn t Referred To Contact Pain Management Diagnoses Chronic left hip pain Ankylosing spondylitis of cervical region Neck pain Gabe Fong MD [facility] [address] [place] [address] Jorje Marquez DO [facility] [place] [address] Referral ID Status Reason Start Date Expiration Date V isits Requested Visits Authorized [id number] Closed Consult, Test & Treat 03/22/2022 03/22/2023 1 1 Encounter Details Date Type Department Care Team (Late st Contact Info) Description 05/07/2022 3:00 PM EDT Office Visit Pain Management at [facility] [place] [phone] Jorje Marquez DO Chronic neck pain; Chronic bilateral thoracic back [...] documented in this encounter Progress Notes * AlmaJorje Randy, DO - 05/07/2022 3:00 PM EDT Pain Clinic Initial Consultation Note DOS: 05/07/22 : 1960 Kim Funes is a 62 y.o. year old female with a PMH including ulcerative colitis, ankylosingspondylitis, on Stelara, dyslipidemia, Osteopenia who presents to the pain clinic today at the referral of Gabe Fong MD [facility] [place] [address] for consultation regarding neck and back pain. [...] She has been through physical therapy in [facility] for left hip pain but has [...] disease Colonoscopy 09/19/08 (Dr. Shady Luz at [facility]) for surveillance for dysplasia. Areas of [...] WITH BX performed by YAQUELIN ESTRADA at [facility] ENDOSCOPY ??? PRO COLONOSCOPY, BIOPSY N/A 03/04/2017 COLONOSCOPY FLEXIBLE, WITH BX (WRVU 3.66) performed by Raúl Austin MD at [facility] ENDOSCOPY ??? PRO COLONOSCOPY, BIOPSY N/A 11/09/2019 COLONOSCOPY FLEXIBLE, WITH BX (WRVU 3.66) performed by Froilan Sahni MD at [facility] ENDOSCOPY ??? PRO COLONOSCOPY, BIOPSY N/A 12/19/2020 COLONOSCOPY FLEXIBLE, WITH BX (WRVU 3.66) performed by Dajuan Rachel MD at [facility] ENDOSCOPY ??? PRO COLONOSCOPY, DIAGNOSTIC N/A 11/09/2019 COLONOSCOPY, DIAGNOSTIC performed by Froilan Sahni MD at [facility] ENDOSCOPY ??? PRO COLONOSCOPY, REMV LESN, SNARE 01/02/2011 COLONOSCOPY, POLYPECTOMY, REMOVAL LESION BY SNARE performed by YAQUELIN ESTRADA at [facility] ENDOSCOPY ??? PRO COLONOSCOPY, REMV LESN, SNARE N/A 03/04/2017 COLONOSCOPY, POLYPECTOMY, REMOVAL LESION BY SNARE (WRVU 4.67) performed by Raúl Austin MD at [facility] ENDOSCOPY ??? PRO COMBINED ANT/POST COLPORRHAPHY N/A 03/10/2018 COLPORRHAPHY ANTERIOR-POSTERIOR; INC CYSTOURETHROSCOPY (WRVU 14.44) performed by Liang Fong MD at [facility] MAIN OR ??? PRO REVAGINAL PROLAPSE, UTEROSACRAL N/A 03/10/2018 COLPOPEXY, VAGINAL, INTRAPERITONEAL APPROACH (WRVU 11.66) [facility]?? PRO SLING OPER STRES INCONTINENCE N/A 03/10/2018 URETHRAL SUSPENSION, SLING\FASCIA OR SYNTHETIC (WRVU 12.13) performed by Liang Fong MD at [facility] MAIN OR ??? PRO VAG HYST, RMV TUBE/OVARY N/A 03/10/2018 HYSTERECTOMY, VAGINAL, REMOVAL TUBE(S) & OR OVARY(S) (WRVU 15.94) performed by Liang Fong MD at [facility] MAIN OR ??? SALPINGECTOMY ??? XR FLUORO INJECTION DRAINAGE JOINT LG RIGHT Right 03/09/2019 XR Fluoro Guided Joint Injection Large Right 03/09/2019 [facility] RAD XRAY FAMILY HISTORY: Family History Problem Relation Age of Onset ??? Hypertension Mother ??? Heart Disease Mother ??? Diabetes Mother ??? Heart Disease Father ??? Cancer Father Lung SOCIAL HISTORY: Tobacco : none Alcohol : rare Recreational drug use : Work : [employer] at [employer] Home : lives in [place] with Hobbies : fishing, stamping FUNCTIONAL [...] , Rfl: ??? SUMAtriptan (IMITREX) 20 mg/actuation [place], Non-Aerosol, 1 spray as needed., Disp: , [...] Nausea/Vomiting, Patient reported PHYSICAL EXAM: Patient declined blender helper today BP 146/80 (BP Location (NBP): Left [...] including shoulder abduction/adduction, elbow flexion/extension, wrist flexion/extension, hand alterations seamstress strength, finger abduction, thumb to index opposition [...] in ...'s care. Jorje Marquez DO Pain Associate Professor Of Psychology Professor of Anesthesiology [employer] [employer] CC: Gabe Fong MD [facility] [place] [address] documented in this encounter Plan of Treatment Upcoming Encounters Date Type Department Care Team (Late st Contact Info) Description 10/16/2024 10:00 AM EST Hospital Encounter Non-Invasive Cardiology [place] [phone] Arrived 11/12/2024 8:00 AM EST Appointment Mammography/DXA at [place] [phone] Gabe Fong MD [facility] [place] [address] 11/30/2024 2:30 PM EDT Office Visit [place] [phone] Gabe Fong MD [facility] [place] [address] 12/07/2024 2:30 PM EDT TH Visit (TeleHealth) [place] [address] Rosemarie Morrow APRN [facility] [place] [address] documented as of this encounter Results * [...] who have questions please contact the health customer care professional that requested your imaging first. ? Electronically signed by: Nba Alberts MD, [facility] ([phone]), at 05/07/2022 4:15 PM Narrative 05/07/2022 4:15 [...] patients who have questions please contactthe health customer care professional that requested your imaging first. Electronically signed by: Nba Alberts MD, [facility]([phone]), at 05/07/2022 4:15 PM Jorje Marquez DO [...] who have questions please contact the health customer care professional that requested your imaging first. ? Electronically signed by: Nba Alberts MD, [facility] ([phone]), at 05/07/2022 4:22 PM Narrative 05/07/2022 4:22 PM EDT EXAMINATION: XR LUMBAR SPINE 2 OR 3 VIEWS (GENERIC) CLINICAL HISTORY: chronic low back pain hx ankylosing spondylitis TECHNIQUE: Lumbar spine AP and lateral COMPARISON: August 24, 2015 FINDINGS: There are five hvv-jbc-ymzamsm lumbar-type vertebrae. The osseous structures are diffusely [...] August 24, 2015 FINDINGS: There are five olu-rwk-xnmouxe lumbar-type vertebrae. The osseous structures are diffusely [...] patients who have questions please contactthe health customer care professional that requested your imaging first. Electronically signed by: Nba Alberts MD, [facility]([phone]), at 05/07/2022 4:22 PM Jorje Marquez DO [...] pain documented in this encounter Care Teams Epic Application Coordinator Relationship Specialty Start Date End Date Marcio Devlin DO [address] [place] [address] PCP - General Family Medicine 11/11/17 documented as of this encounter
--- OUTSIDE RECORDS SUMMARY | 2024-10-04 16:06 | XMS_ITS | Encounter Summary ---
Author Organization [facility] [place] [address] Care Team Providers Care Sprayer Automatic Spray Machine Name Role Phone Marcio Devlin DO Primary Care Provider [phone] Reason for Referral * Diagnostic Test (Routine) - Closed Specialty Diagnoses / Procedures Referred By Contac t Referred To Contact Radiology Diagnoses Ankylosing spondylitis of cervical region Neck pain Decreased ROM of neck Procedures MRI Cervical Spine wo Contrast (Generic) Gabe Fong MD [facility] [address] [place] [address] [place] [address] Referral ID Status Reason Start Date Expiration Date V isits Requested Visits Authorized [id number] Closed Specialty Service Requested 02/22/2022 08/24/2023 1 1 Encounter Details Date Type Department Care Team (Late st Contact Info) Description 02/22/2022 10:30 AM EDT Office [place] [address] Gabe Fong MD [facility] [place] [address] [place] [address] Chronic left hip pain; Ankylosing [...] EST Hospital Encounter Non[place] [address] Arrived 11/12/2024 8:00 AM EST Appointment Mammography/[place] [address] Gabe Fong MD [facility] [place] [address] 11/30/2024 2:30 PM EDT Office Visit Rheumatology [place] [address] Gabe Fong MD [facility] [place] [address] 12/07/2024 2:30 PM EDT TH Visit (TeleHealth) [place] [address] Rosemarie Morrow, SKIP [facility] [place] [address] documented as of this encounter Procedures Procedure [...] who have questions please contact the health laboratory animal caretaker that requested your imaging first. ? [...] patients who have questions please contactthe health laboratory animal caretaker that requested your imaging first. Gabe Fong MD IMG MRI ORDERABLES * Bilirubin, Direct (02/22/2022 11:05 AM EDT) [facility] Bilirubin, Direct 0.1 0.0 - 0.3 mg/dL [facility] Blood 02/22/2022 11:0 5 AM EDT 02/22/2022 11:22 AM EDT Narrative Resulting Agency Comment Spec In Lab Gabe Fong MD CHEMISTRY ORDERABLES [facility] [place] [address] * Differential, Automated (02/22/2022 11:05 AM EDT) Pathologist [facility] Neutrophil % 61.2 % [facility] Neutrophil Absolute 4.92 1.70 - 6.10 x10(3)/mcL [facility] Lymph % 27.7 % [facility] Lymphocytes Abs 2.2 0.9 - 3.2 x10(3)/[facility] Monocyte % 8.4 % [facility] Monocyte Abs 0.7 0.3 - 0.9 x10(3)/[facility] Eos % 2.0 % [facility] Eosinophils Abs 0.2 0.0 - 0.4 x10(3)/[facility] Basophil % 0.5 % [facility] Baso Absolute 0.0 0.0 - 0.1 x10(3)/[facility] Immature Gran % 0.20 % [facility] Comment: Immature granulocytes(IG's)percentage and absolute count will include metamyelocytes, myelocytes, and promyelocytes. Blood smears from CBCs yielding IG's will be scanned manually for concordance. If this scan disagrees with the automated IG or if promyelocytes are noted, a manual differential will be performed. Immature Gran Absolute 0.02 0.00 - 0.04 x10(3)/[facility] Blood 02/22/2022 11:0 5 AM EDT 02/22/2022 11:22 AM EDT Narrative Resulting Agency Comment Spec In Lab Gabe Fong MD HEMATOLOGY ORDERABLE S [facility] [place] [address] * Hemogram (02/22/2022 11:05 AM EDT) White Blood Cell 8.0 4.0 - 9.5 x10(3)/[facility] Red Blood Cell 4.80 4.00 - 5.21 x10(6)/[facility] Hemoglobin 13.6 11.7 - 15.5 g/dL [facility] Hematocrit 42.4 35.7 - 45.8 % [facility] Mean Cell Volume 88.3 82.6 - 94.4 fL [facility] Mean Cell Hemoglobin 28.3 27.1 - 32.0 pg [facility] Mean Cell Hemoglobin Concentration 32.1 31.7 - 35.0 g/dL [facility] Platelet 262 145 - 357 x10(3)/[facility] RDW Standard Deviation 44.7 37.0 - 46.0 fL [facility] RDW coefficient of variation 13.6 11.5 - 14.1 % [facility] Mean Platelet Volume 10.0 7.6 - 12.9 fL [facility] NRBC% auto 0.0 % [facility] NRBC Absolute 0.000 0.000 - 0.000 x10(3)/[facility] Blood 02/22/2022 11:0 5 AM EDT 02/22/2022 11:22 AM EDT Narrative Resulting Agency Comment Spec In Lab Gabe Fong MD HEMATOLOGY ORDERABLE S [facility] [address] * (ABNORMAL) Comprehensive metabolic panel (non-fasting) (02/22/2022 11:05 AM EDT) Glucose 102 65 - 199 mg/dL [facility] Comment:Diabetes: >=200 mg/d L plus symptoms Blood Urea Nitrogen 19(H) 8 - 18 mg/dL [facility] Creatinine 0.78 0.70 - 1.20 mg/dL [facility] Sodium 144 135 - 145 mmol/L [facility] Potassium 4.1 3.5 - 5.0 mmol/L [facility] Comment: Please note: ??Patients with WBC >100,000 may have falsely elevated Potassium levels. ??For accurate Potassium quantification in these patients send serum separator tube (gold top) for subsequent determinations. ??Contact the Clinical Chemistry Laboratory if there are any questions. Chloride 106 98 - 107 mmol/L [facility] Carbon Dioxide 26 22 - 31 mmol/L [facility] Anion Gap 12 5 - 15 mmol/L [facility] Calcium 10.1 8.5 - 10.5 mg/dL [facility] Protein, Total 8.0 6.1 - 8.0 g/dL [facility] Albumin 4.1 3.2 - 5.2 g/dL [facility] Aspartate Aminotransferase 23 0 - 30 unit/L [facility] Alanine Aminotransferase 19 0 - 30 unit/L [facility] Alkaline Phosphatase 122(H) 35 - 105 unit/L [facility] Bilirubin, Total 0.4 0.2 - 1.3 mg/dL [facility] Est Glomerular Filtration Rate 83 >=60 mL/min/1. 73 m?? [facility] Comment: This patient? s [...] In Lab Gabe Fong MD CHEMISTRY ORDERABLES [facility] [address] * (ABNORMAL) CRP, acute inflammation (02/22/2022 11:05 AM EDT) C-Reactive Protein 15.0(H) <=4.9 mg/L [facility] Blood 02/22/2022 11:0 5 AM EDT 02/22/2022 11:22 AM EDT Narrative Resulting Agency Comment Spec In Lab Gabe Fong MD CHEMISTRY ORDERABLES Performing Organization Address City/[facility]/ZIP Co de Phone Number [facility] [address] * (ABNORMAL) Sedimentation rate (02/22/2022 11:05 AM EDT) Sedimentation Rate Automated 42(H) 2 - 39 mm/hr [facility] Comment: Effective August 25, 2019 new capillary photometric technology has resulted in a change in reference ranges. It is recommended that each ESR result be reviewed with its own age appropriate reference range. Blood 02/22/2022 11:0 5 AM EDT 02/22/2022 11:22 AM EDT Narrative Resulting Agency Comment Spec In Lab Gabe Fong MD HEMATOLOGY ORDERABLE S Performing Organization Address City/[facility]/ZIP Co de Phone Number [facility] [place] [address] documented in this encounter Visit Diagnoses Diagnosis [...] neck documented in this encounter Care Teams Sprayer Automatic Spray Machine Relationship Specialty Start Date End Date Marcio Devlin DO [facility] [place] [place] [address] PCP - General Family Medicine 11/11/17 documented as of this encounter
--- OUTSIDE RECORDS SUMMARY | 2024-10-04 16:06 | XMS_ITS | Encounter Summary ---
Author Organization [facility] Address [facility] [place] [address] Care Team Providers Care Court Specialist Name Role Phone Marcio Devlin DO Primary Care Provider [phone] Encounter Details Date Type Department Care Team (Late st Contact Info) Description 02/12/2022 [place] [phone] Gabe Fong MD [facility] [place] [address] Social History Tobacco Use Types Packs/Day Years [...] AM EST Hospital Encounter Non-[place] [address] Arrived 11/12/2024 8:00 AM EST Appointment Mammography/DXA at [place] [phone] Gabe Fong MD [facility] [place] [address] 11/30/2024 2:30 PM EDT Office Visit Rheumatology at [place] [phone] Gabe Fong MD [facility] [place] [address] 12/07/2024 2:30 PM EDT TH Visit (TeleHealth) Gastroenterology at [address] Rosemarie Morrow APRN [facility] [place] [address] documented as of this encounter Visit Diagnoses Not on filedocumented in this encounter Care Teams Court Specialist Relationship Specialty Start Date End Date Marcio Devlin DO [address] [place] [address] PCP - General Family Medicine 11/11/17 documented as of this encounter
--- OUTSIDE RECORDS SUMMARY | 2024-10-04 16:06 | XMS_ITS | Encounter Summary ---
Author Organization [facility] [place] [address] Care Team Providers Care Stemhole Borer Name Role Phone Marcio Devlin DO Primary Care Provider [phone] Reason for Visit * Reason Comments Specialty Pharmacy Review Ustekinumab (S telara) 90mg/mL Syringe Encounter Details Date Type Department Care Team (Late st Contact Info) Description 03/22/2022 Specialty [place] [address] Alison Ortiz, [facility] Social History Tobacco Use Types [...] Ortiz - 03/22/2022 11:59 PM EDT The Counts Include 234 [...] AM EST Hospital Encounter Non-Invasive [place] [address] Arrived 11/12/2024 8:00 AM EST Appointment Mammography/DXA at [place] [phone] Gabe Fong MD [facility] [place] [address] 11/30/2024 2:30 PM EDT Office Visit Rheumatology at [place] [phone] Gabe Fong MD [facility] [place] [address] 12/07/2024 2:30 PM EDT TH Visit (TeleHealth) [place] [address] Rosemarie Morrow, SKIP [facility] [place] [address] documented as of this encounter Visit Diagnoses Not on filedocumented in this encounter Care Teams Stemhole Borer Relationship Specialty Start Date End Date Marcio Devlin DO [address] [place] [address] PCP - General Family Medicine 11/11/17 documented as of this encounter
--- OUTSIDE RECORDS SUMMARY | 2024-10-04 16:06 | XMS_ITS | Encounter Summary ---
Author Organization [facility] Address [facility] [place] [address] Care Team Providers Care Padded Products Finisher Name Role Phone Marcio Devlin DO Primary Care Provider [phone] Encounter Details Date Type Department Care Team (Late st Contact Info) Description 01/18/2022 9:30 AM EDT Office [place] [address] Gabe Fong MD [facility] [place] [address] Chronic left hip pain; Ankylosing spondylitis of [...] AM EST Hospital Encounter [place] [address] Arrived 11/12/2024 8:00 AM EST Appointment Mammography/DXA at [address] Gabe Fong MD [facility] [place] [address] 11/30/2024 2:30 PM EDT Office Visit Rheumatology at [place] [phone] Gabe Fong MD [facility] [place] [address] 12/07/2024 2:30 PM EDT TH Visit (TeleHealth) Gastroenterology at [place] [phone] Rosemarie Morrow, SKIP [facility] [place] [address] documented as of this encounter Visit Diagnoses [...] unspecified documented in this encounter Care Teams Padded Products Finisher Relationship Specialty Start Date End Date Marcio Devlin DO [address] [place] [address] PCP - General Family Medicine 11/11/17 documented as of this encounter
--- OUTSIDE RECORDS SUMMARY | 2024-10-04 16:06 | XMS_ITS | Encounter Summary ---
Author Organization [facility] [place] [address] Care Team Providers Care Welding Machine Operator Plasma Arc Name Role Phone Marcio Devlin DO Primary Care Provider [phone] Encounter Details Date Type Department Care Team (Late st Contact Info) Description 05/15/2022 Orders [place] [phone] Rachelle Acevedo, RN Ulcerative pancolitis with complication [...] AM EST Hospital Encounter Non[place] [address] Arrived 11/12/2024 8:00 AM EST Appointment Mammography/DXA at [address] Gabe Fong MD [facility] [place] [address] 11/30/2024 2:30 PM EDT Office Visit Rheumatology at [place] [phone] Gabe Fong MD [facility] [place] [address] 12/07/2024 2:30 PM EDT TH Visit (TeleHealth) Gastroenterology at [place] [phone] Rosemarie Morrow APRN [facility] [place] [address] documented as of this encounter Visit Diagnoses Diagnosis Ulcerative pancolitis with complication documented in this encounter Care Teams Welding Machine Operator Plasma Arc Relationship Specialty Start Date End Date Marcio Devlin DO [address] [place] [place] [address] PCP - General Family Medicine 11/11/17 documented as of this encounter
--- OUTSIDE RECORDS SUMMARY | 2024-10-04 16:06 | XMS_ITS | Encounter Summary ---
Author Organization [facility] [place] [address] Care Team Providers Care Engineer Internship Name Role Phone Marcio Devlin DO Primary Care Provider [phone] Encounter Details Date Type Department Care Team [...] AM EST Hospital Encounter Non-Invasive Cardiology Lab [place] [address] Arrived 11/12/2024 8:00 AM EST Appointment Mammography/[place] [address] Gabe Fong MD [facility] [place] [address] 11/30/2024 2:30 PM EDT Office Visit Rheumatology at [place] [address] Gabe Fong MD [facility] [place] [address] 12/07/2024 2:30 PM EDT TH Visit (TeleHealth) Gastroenterology at [address]1000 Rosemarie Morrow APRN [facility] [place] [address] documented as of this encounter Visit Diagnoses Not on filedocumented in this encounter Care Teams Engineer Internship Relationship Specialty Start Date End Date Marcio Devlin, DO ALVAREZI: [phone] [address] [place] [address] PCP - General Family Medicine 11/11/17 documented as of this encounter
--- OUTSIDE RECORDS SUMMARY | 2024-10-04 16:06 | XMS_ITS | Encounter Summary ---
Author Organization [facility] [place] [address] Care Team Providers Care Flatwork Tier Name Role Phone Marcio Devlin DO Primary Care Provider [phone] Encounter Details Date Type Department Care Team (Late st Contact Info) Description 05/14/2022 Telephone [place] [address] Janki Abdi Social History Tobacco [...] AM EST Hospital Encounter Non-[place] [address] Arrived 11/12/2024 8:00 AM EST Appointment Mammography/[place] [address] Gabe Fong MD [facility] [place] [address] 11/30/2024 2:30 PM EDT Office Visit Rheumatology at [place] [phone] Gabe Fong MD [facility] [address] [place] [address] 12/07/2024 2:30 PM EDT TH Visit (TeleHealth) [place] [address] Rosemarie Morrow APRN [facility] [place] [address] documented as of this encounter Visit Diagnoses Not on filedocumented in this encounter Care Teams Flatwork Tier Relationship Specialty Start Date End Date Marcio Devlin DO [address] [facility] [place] [address] PCP - General Family Medicine 11/11/17 documented as of this encounter
--- OUTSIDE RECORDS SUMMARY | 2024-10-04 16:06 | XMS_ITS | Encounter Summary ---
Author Organization [facility] [place] [address] Care Team Providers Care Aircraft Painter Name Role Phone Marcio Devlin DO Primary Care Provider [phone] Reason for Visit * Reason Comments Prior Authorization Stelara 90mg/ml SOSY Encounter Details Date Type Department Care Team (Late st Contact Info) Description 08/19/2022 Specialty [place] [phone] Tiff Anglin, [place] Social History Tobacco Use Types Packs/Day Years [...] this encounter Progress Notes * Tiff Anglin [place] - 08/19/2022 2:54 PM EST [facility], Medication Prior Authorization Submission Patient: Kim Funes Patient : 1960 Patient Address: [address] [place] [phone] (home) Medication Name: STELARA 90 MG/ML SUBCUTANEOUS SYRINGE Medication ID: [id number] Subscriber Insurance: [employer] ([facility]) Subscriber Insurance Comment: Phone: [phone] Fax: Physician: Dajuan BERRY Physician Comment: Sent Via: Fax Truong: Ref/Case/PA#: [id number] Medication Strength Frequency Requested: Stelara 90mg/ml SOSY, Inject 1ml (90mg) subcutaneously once every 56 days. Qty/Day Supply: New Start: Renewal Diagnosis & ICD-10 Code: Ulcerative pancolitis without complication (K51.00) Patient Notified: No Submission Notes: - PA submitted through Prompt PA for Stelara 90mg/ml SOSY, qty . EOC# [id number] Tiff Anglin CPHT 08/19/22 2:58 PM * Tiff Anglin [facility] - 08/19/2022 2:54 PM EST D- Specialty Pharmacy, Prior Authorization Approval Medication Name: STELARA 90 MG/ML SUBCUTANEOUS SYRINGE Medication ID: [id number] Approval Dates: 08/21/2022 to 08/20/2023 Insurance requirements/notes: - Patient mandated to fill with [facility]. Other Notes: - PA approved for Stelara 90mg/ml SOSY, qty through 08/20/23. Case/Reference #: [id number] Approval notification Received via: Fax Copay: unknown [...] AM EST Hospital Encounter Non-Invasive [place] [address] Arrived 11/12/2024 8:00 AM EST Appointment Mammography/[place] [address] Gabe Fong MD [facility] [place] [place] [address] 11/30/2024 2:30 PM EDT Office Visit Rheumatology at [place] [phone] Gabe Fong MD [facility] [place] [place] [address] 12/07/2024 2:30 PM EDT TH Visit (TeleHealth) [place] [address] Rosemarie Morrow APRN [facility] [place] [address] documented as of this encounter Visit Diagnoses Not on filedocumented in this encounter Care Teams Aircraft Painter Relationship Specialty Start Date End Date Marcio Devlin DO [address] [place] [address] PCP - General Family Medicine 11/11/17 documented as of this encounter
--- OUTSIDE RECORDS SUMMARY | 2024-10-04 16:06 | XMS_ITS | Encounter Summary ---
Author Organization [facility] [place] [address] Care Team Providers Care Radio Communication Coordinator Name Role Phone Marcio Devlin DO Primary Care Provider [phone] Encounter Details Date Type Department Care Team (Late st Contact Info) Description 08/05/2022 Telephone [place] [address] María Elena Jean, MA Social [...] AM EST Hospital Encounter Non-[place]vasive [place] [address] Arrived 11/12/2024 8:00 AM EST Appointment Mammography/[place] [address] Gabe Fong MD [facility] [address] [place] [place] [address] 11/30/2024 2:30 PM EDT Office Visit Rheumatology at [place] [phone] Gabe Fong MD [facility] [address] [place] [address] 12/07/2024 2:30 PM EDT TH Visit (TeleHealth) [place] [address] Rosemarie Morrow APRN [facility] [place] [address] documented as of this encounter Visit Diagnoses Not on filedocumented in this encounter Care Teams Radio Communication Coordinator Relationship Specialty Start Date End Date Marcio Devlin DO [address] [facility] [place] [address] PCP - General Family Medicine 11/11/17 documented as of this encounter
--- OUTSIDE RECORDS SUMMARY | 2024-10-04 16:06 | XMS_ITS | Encounter Summary ---
Author Organization [facility] [place] [address] Care Team Providers Care Photographic Process Worker Name Role Phone Marcio Devlin DO Primary Care Provider Encounter Details Date Type Department Care Team (Late st Contact Info) Description 05/16/2022 Orders Only [place] [phone] Rachelle Acevedo, RN Social History Tobacco Use [...] AM EST Hospital Encounter Non-[place] [address] Arrived 11/12/2024 8:00 AM EST Appointment Mammography/[place] [address] Gabe Fong MD [facility] [place] [address] [place] [address] 11/30/2024 2:30 PM EDT Office Visit Rheumatology at [place] [phone] Gabe Fong MD [facility] [place] [address] [place] [address] 12/07/2024 2:30 PM EDT TH Visit (TeleHealth) [place] [address] Rosemarie Morrow, SKIP [facility] [place] [place] [address] documented as of this encounter Visit Diagnoses Not on filedocumented in this encounter Care Teams Photographic Process Worker Relationship Specialty Start Date End Date Marcio Devlin DO [facility] [place] [address] PCP - General Family Medicine 11/11/17 documented as of this encounter
--- OUTSIDE RECORDS SUMMARY | 2024-10-04 16:06 | XMS_ITS | Encounter Summary ---
Author Organization [place] [address] Care Team Providers Care Bag Valver Name Role Phone Marcio Devlin DO Primary Care Provider [phone] Reason for Visit * Reason Onset Date Comments Medication Refill 02/28/2022 Encounter Details Date Type Department Care Team (Late st Contact Info) Description 02/28/2022 Refill [place] [address] Dajuan Rachel MD [facility] [place] [place] [address] Ulcerative pancolitis without complication Social History Tobacco [...] AM EST Hospital Encounter Non-Invasive Cardiology [place] [facility] [address] Arrived 11/12/2024 8:00 AM EST Appointment Mammography/DXA at [address]1000 Gabe Fong MD [facility] [place] [address] 11/30/2024 2:30 PM EDT Office Visit Rheumatology at [address]1000 Gabe Fong MD [facility] [place] [address] 12/07/2024 2:30 PM EDT TH Visit (TeleHealth) Gastroenterology at [place] [phone] Rosemarie Morrow, SKIP [facility] [place] [address] documented as of this encounter Visit Diagnoses Diagnosis Ulcerative pancolitis without complication documented in this encounter Care Teams Bag Valver Relationship Specialty Start Date End Date Marcio Devlin DO [address] [place] [address] PCP - General Family Medicine 11/11/17 documented as of this encounter
--- OUTSIDE RECORDS SUMMARY | 2024-10-04 16:06 | XMS_ITS | Encounter Summary ---
Author Organization [facility] [place] [address] Care Team Providers Care Manager Bakery Name Role Phone Marcio Devlin DO Primary Care Provider [phone] Encounter Details Date Type Department Care Team (Late st Contact Info) Description 08/06/2022 Telephone [place] [address] [place] Diana Dajuan Social History [...] - 08/06/2022 12:52 PM EST Kim Funes [id number] Diagnosis/Indication: Restaging UC since changing to Stelara [...] No 18. You must have a responsible constitution party who will drive you to your procedure, stay on campus for the entire duration of your procedure, and drive you home from your procedure. Who will likely be your production truck driver for the procedure? Estimated body mass [...] at 07/31/2022 7:02 PM EST ----- Regarding: [place] [facility] schedule the colo that was ordered at the beginning of the year. Thanks. Next available with mod consc sed C documented in this encounter Plan of Treatment Upcoming Encounters Date Type Department Care Team (Late st Contact Info) Description 10/16/2024 10:00 AM EST Hospital Encounter [place] [address] Arrived 11/12/2024 8:00 AM EST Appointment Mammography/[place] [address] Gabe Fong MD [facility] [place] [place] [address] 11/30/2024 2:30 PM EDT Office Visit Rheumatology at [place] [phone] Gabe Fong MD [facility] [place] [place] [address] 12/07/2024 2:30 PM EDT TH Visit (TeleHealth) [place] [address] Rosemarie Morrow, SKIP [facility] [place] [address] documented as of this encounter Visit Diagnoses Not on filedocumented in this encounter Care Teams Manager Bakery Relationship Specialty Start Date End Date Marcio Devlin DO [address] [place] [address] PCP - General Family Medicine 11/11/17 documented as of this encounter
--- OUTSIDE RECORDS SUMMARY | 2024-10-04 16:06 | XMS_ITS | Encounter Summary ---
Author Organization [facility] Address [facility] [place] [address] Care Team Providers Care Hydro Mechanic Name Role Phone Marcio Devlin DO Primary Care Provider [phone] Encounter Details Date Type Department Care Team (Late st Contact Info) Description 12/25/2021 Orders Only [place] [address] Gabe Fong MD [facility] [address] [place] [address] Social History Tobacco Use Types Packs/Day Years [...] AM EST Hospital Encounter Non-Invasive [place] [address] Arrived 11/12/2024 8:00 AM EST Appointment Mammography/DXA at [place] [phone] Gabe Fong MD [facility] [place] [address] 11/30/2024 2:30 PM EDT Office [place] [address] Gabe Fong MD [facility] [place] [address] 12/07/2024 2:30 PM EDT TH Visit (TeleHealth) Gastroenterology at [place] [phone] Rosemarie Morrow APRN [facility] [place] [place] [address] documented as of this encounter Visit Diagnoses Not on filedocumented in this encounter Care Teams Hydro Mechanic Relationship Specialty Start Date End Date Marcio Devlin DO [address] [place] [address] PCP - General Family Medicine 11/11/17 documented as of this encounter
--- OUTSIDE RECORDS SUMMARY | 2024-10-04 16:06 | XMS_ITS | Encounter Summary ---
Author Organization [facility] [place] [address] Care Team Providers Care Hat Finisher Name Role Phone Marcio Devlin DO Primary Care Provider [phone] Reason for Visit * Reason Comments Follow-up Encounter Details Date Type Department Care Team (Late st Contact Info) Description 06/11/2022 4:00 PM EDT Office Visit Pain Management at [facility] [address] [place] [address] Jorje Marquez DO Chronic bilateral thoracic back pain; Chronic neck [...] at the referral of Marcio Devlin, DO [address] [place] [address] for consultation regarding neck and back pain. CC: Chief Complaint Patient presents with ??? Follow-up Interval history: - overall pt feels noticeably better since prior visit - less pain in the neck and low back - pain at this time is worse under the shoulder blades - pain is worse bent over working - pain at rest 4/10 worse /10 - she feels like the TENS unit [...] She has been through physical [facility] for left hip pain but [...] disease Colonoscopy 09/19/08 (Dr. Shady Luz at [facility]) for surveillance for dysplasia. Areas of skip [...] BX performed by YAQUELIN ESTRADA at [facility] ENDOSCOPY ??? PRO COLONOSCOPY, BIOPSY N/A 03/04/2017 COLONOSCOPY FLEXIBLE, WITH BX (WRVU 3.66) performed by Raúl Austin MD at [facility] ENDOSCOPY ??? PRO COLONOSCOPY, BIOPSY N/A 11/09/2019 COLONOSCOPY FLEXIBLE, WITH BX (WRVU 3.66) performed by Froilan Sahni MD at [facility] ENDOSCOPY ??? PRO COLONOSCOPY, BIOPSY N/A 12/19/2020 COLONOSCOPY FLEXIBLE, WITH BX (WRVU 3.66) performed by Dajuan Rachel MD at [facility] ENDOSCOPY ??? PRO COLONOSCOPY, DIAGNOSTIC N/A 11/09/2019 COLONOSCOPY, DIAGNOSTIC performed by Froilan Sahni MD at [facility] ENDOSCOPY ??? PRO COLONOSCOPY, REMV LESN, SNARE 01/02/2011 COLONOSCOPY, POLYPECTOMY, REMOVAL LESION BY SNARE performed by YAQUELIN ESTRADA at [facility] ENDOSCOPY ??? PRO COLONOSCOPY, REMV LESN, SNARE N/A 03/04/2017 COLONOSCOPY, POLYPECTOMY, REMOVAL LESION BY SNARE (WRVU 4.67) performed by Raúl Austin MD at [facility] ENDOSCOPY ??? PRO COMBINED ANT/POST COLPORRHAPHY N/A 03/10/2018 COLPORRHAPHY ANTERIOR-POSTERIOR; INC CYSTOURETHROSCOPY (WRVU 14.44) performed by Liang Fong MD at [facility] MAIN OR ??? PRO REVAGINAL PROLAPSE, UTEROSACRAL N/A 03/10/2018 COLPOPEXY, VAGINAL, INTRAPERITONEAL APPROACH (WRVU 11.66) performed by Liang Fong MD at [facility] OR ??? PRO SLING OPER STRES INCONTINENCE N/A 03/10/2018 URETHRAL SUSPENSION, SLING\FASCIA OR SYNTHETIC (WRVU 12.13) performed by Liang Fong MD at [facility] MAIN OR ??? PRO VAG HYST, RMV TUBE/OVARY N/A 03/10/2018 HYSTERECTOMY, VAGINAL, REMOVAL TUBE(S) & OR OVARY(S) (WRVU 15.94) performed by Liang Fong MD at [facility] MAIN OR ??? SALPINGECTOMY ??? XR FLUORO INJECTION DRAINAGE JOINT LG RIGHT Right 03/09/2019 XR Fluoro Guided Joint Injection Large Right 03/09/2019 [facility] RAD XRAY FAMILY HISTORY: Family History Problem Relation Age of Onset ??? Hypertension Mother ??? Heart Disease Mother ??? Diabetes Mother ??? Heart Disease Father ??? Cancer Father Lung SOCIAL HISTORY: Tobacco : none Alcohol : rare Recreational drug use : Work : [employer] at [employer] Home : lives in [place] with Hobbies : fishing, Approvaing FUNCTIONAL STATUS: Independent in all ADLs. MEDICATIONS: [...] , Rfl: ??? SUMAtriptan (IMITREX) 20 mg/actuation [address], Non-Aerosol, 1 spray as needed., Disp: , [...] including shoulder abduction/adduction, elbow flexion/extension, wrist flexion/extension, security assurance analyst strength, finger abduction, thumb to index opposition [...] 24, 2015 ?? FINDINGS: There are five [id number] lumbar-type vertebrae. ?? The osseous structures are [...] in Kim's care. Jorje Marquez DO Pain Tile Setter Apprentice Professor of Anesthesiology [employer] CC: Marcio Devlin DO [address] [place] [address] documented in this encounter Plan of Treatment Upcoming Encounters Date Type Department Care Team (Late st Contact Info) Description 10/16/2024 10:00 AM EST Hospital Encounter Non[place] [phone] Arrived 11/12/2024 8:00 AM EST Appointment Mammography/DXA at [place] [phone] Gabe Fong MD [facility] [address] [place] [address] 11/30/2024 2:30 PM EDT Office Visit Rheumatology at [place] [phone] Gabe Fong MD [facility] [address] [place] [address] 12/07/2024 2:30 PM EDT TH Visit (TeleHealth) [place] [address] Rosemarie Morrow APRN [facility] [place] [address] documented as of this encounter Visit Diagnoses Diagnosis Chronic bilateral thoracic back pain Chronic neck pain Cervicalgia Chronic bilateral low back pain without sciatica Ankylosing spondylitis of multiple sites in spine Ankylosing spondylitis documented in this encounter Care Teams Hat Finisher Relationship Specialty Start Date End Date Marcio Devlin DO [address] [place] [address] PCP - General Family Medicine 11/11/17 documented as of this encounter
--- OUTSIDE RECORDS SUMMARY | 2024-10-04 16:06 | XMS_ITS | Encounter Summary ---
Author Organization [facility] Address [facility] [place] [address] Care Team Providers Care Broomcorn Seeder Name Role Phone Marcio Devlin DO Primary Care Provider [phone] Reason for Referral * Consultation (Routine) - Closed Specialty Diagnoses / Procedures Referred By Missy escalera Referred To Contact Pain Management Diagnoses Chronic left hip pain Ankylosing spondylitis of cervical region Neck pain Gabe Fong MD [facility] [address] [place] [address] Jorje Marquez [facility] [place] [address] Referral ID Status Reason Start Date Expiration Date V isits Requested Visits Authorized [id number] Closed Consult, Test & Treat 03/22/2022 03/22/2023 1 1 Encounter Details Date Type Department Care Team (Late st Contact Info) Description 03/22/2022 9:30 AM EDT Office Visit [place] [address] Gabe Fong MD [facility] [address] [place] [address] Chronic left hip pain; Ankylosing spondylitis of [...] back.She notes as a follow-up with the PANEL INSTALLER/PA for this with me after the colonoscopy. [...] AM EST Hospital Encounter Non[place] [address] Arrived 11/12/2024 8:00 AM EST Appointment Mammography/[place] [address] Gabe Fong MD [facility] [place] [address] 11/30/2024 2:30 PM EDT Office Visit [place] [address] Gabe Fong MD [facility] [place] [address] 12/07/2024 2:30 PM EDT TH Visit (TeleHealth) [place] [address] Rosemarie Morrow APRN [facility] [place] [address] Scheduled Referrals Name Type Priority Associated Diagnoses [...] / FVC LLN 67 % COMPAS PFT [id number] Actual Pre-BD 2.09 L/s COMPAS PFT GIU94-59 Pre-BD % of Predicted 91 % COMPAS PFT SSZ30-82 Predicted 2.29 L/s COMPAS PFT DII96-12 Pre-BD Z-Score -0.25 COMPAS PFT DLCO Hb [...] breath documented in this encounter Care Teams Broomcorn Seeder Relationship Specialty Start Date End Date Marcio Devlin DO [address] [place] [address] PCP - General Family Medicine 11/11/17 documented as of this encounter
--- OUTSIDE RECORDS SUMMARY | 2024-10-04 16:06 | XMS_ITS | Encounter Summary ---
Author Organization [facility] [place] [address] Care Team Providers Care In Home Caregiver Name Role Phone Marcio Devlin DO Primary Care Provider [phone] Reason for Visit * Reason Comments Specialty Pharmacy Review Ustekinumab (S telara) 90mg/mL Syringe Encounter Details Date Type Department Care Team (Late st Contact Info) Description 05/10/2022 Specialty [place] [address] Alison Ortiz, [facility] Social History Tobacco Use Types [...] has completed a benefits investigation for Kim uFnes to review their eligibility to fill at [facility]. Per patient's medication list they are prescribed Ustekinumab (Stelara) and the medication is not able to be filled at the [facility]. Kim Funes must fill with [facility] under current insurance plan's mandate. documented in this encounter Plan of Treatment Upcoming Encounters Date Type Department Care Team (Late st Contact Info) Description 10/16/2024 10:00 AM EST Hospital Encounter Non-Invasive [place] [address] Arrived 11/12/2024 8:00 AM EST Appointment Mammography/[place] [address] [facility] [place] [address] [place] [address] 11/30/2024 2:30 PM EDT Office [place] [address] [facility] [place] [address] 12/07/2024 2:30 PM EDT TH Visit (TeleHealth) [place] [address] [facility] [place] [place] [address] documented as of this encounter Visit Diagnoses Not on filedocumented in this encounter Care Teams In Home Caregiver Relationship Specialty Start Date End Date Marcio Devlin DO [address] [place] [address] PCP - General Family Medicine 11/11/17 documented as of this encounter
--- OUTSIDE RECORDS SUMMARY | 2024-10-04 16:06 | XMS_ITS | Encounter Summary ---
Author Organization [facility] [place] [address] Care Team Providers Care Lodging House Keeper Name Role Phone Marcio Devlin DO Primary Care Provider [phone] Reason for Visit * Reason Comments Specialty Pharmacy Review Ustekinumab (S telara) 90mg/mL Syringe Encounter Details Date Type Department Care Team (Late st Contact Info) Description 08/06/2022 Specialty [place] [address] Alison Ortiz, [facility] Social History Tobacco Use Types [...] their eligibility to fill at [facility]. Per patient's medication list they are prescribed Ustekinumab (Stelara) and the medication is not able to be filled at the [facility]. Kim Funes must fill with [facility] under current insurance plan's mandate. documented in this encounter Plan of Treatment Upcoming Encounters Date Type Department Care Team (Late st Contact Info) Description 10/16/2024 10:00 AM EST Hospital Encounter Non-Invasive [place] [address] Arrived 11/12/2024 8:00 AM EST Appointment Mammography/[place] [address] Gabe Fong MD [facility] [place] [address] [place] [address] 11/30/2024 2:30 PM EDT Office [place] [address] Gabe Fong MD [facility] [place] [address] 12/07/2024 2:30 PM EDT TH Visit (TeleHealth) [place] [address] Rosemarie Morrow APRN [facility] [place] [address] documented as of this encounter Visit Diagnoses Not on filedocumented in this encounter Care Teams Lodging House Keeper Relationship Specialty Start Date End Date Marcio Devlin DO [address] [place], [place] [address] [place] [address] PCP - General Family Medicine 11/11/17 documented as of this encounter
--- OUTSIDE RECORDS SUMMARY | 2024-10-04 16:06 | XMS_ITS | Encounter Summary ---
Author Organization [facility] Address [facility] [place] [address] Care Team Providers Care Physics And Astronomy Professor Name Role Phone Marcio Devlin DO Primary Care Provider [phone] Encounter Details Date Type Department Care Team (Late st Contact Info) Description 02/11/2022 Orders Only [place] [address] Dajuan Rachel MD [facility] [place] [address] Social History Tobacco Use Types Packs/Day Years [...] AM EST Hospital Encounter Non-Invasive [place] [address] Arrived 11/12/2024 8:00 AM EST Appointment Mammography/[place] [address] Gabe Fong MD [facility] [place] [address] 11/30/2024 2:30 PM EDT Office Visit Rheumatology at [place] [phone] Gabe Fong MD [facility] [place] [address] 12/07/2024 2:30 PM EDT TH Visit (TeleHealth) Gastroenterology at [place] [phone] Rosemarie Morrow, SKIP [facility] [place] [address] documented as of this encounter Visit Diagnoses Not on filedocumented in this encounter Care Teams Physics And Astronomy Professor Relationship Specialty Start Date End Date Marcio Devlin DO [address] [place] [address] PCP - General Family Medicine 11/11/17 documented as of this encounter
--- OUTSIDE RECORDS SUMMARY | 2024-10-04 16:06 | XMS_ITS | Encounter Summary ---
Author Organization [facility] Address [facility] [place] [address] Care Team Providers Care Partner Manager Name Role Phone Marcio Devlin DO Primary Care Provider [phone] Encounter Details Date Type Department Care Team (Late st Contact Info) Description 02/04/2022 Orders [place] [address] Dajuan Rachel MD [facility] [place] [address] Social History Tobacco Use Types Packs/Day Years [...] AM EST Hospital Encounter Non-Invasive [place] [address] Arrived 11/12/2024 8:00 AM EST Appointment Mammography/[place] [address] Gabe Fong MD [facility] [place] [place] [address] 11/30/2024 2:30 PM EDT Office Visit Rheumatology at [place] [phone] Gabe Fong MD [facility] [place] [address] 12/07/2024 2:30 PM EDT TH Visit (TeleHealth) Gastroenterology at [place] [phone] Rosemarie Morrow, SKIP [facility] [place] [address] documented as of this encounter Visit Diagnoses Not on filedocumented in this encounter Care Teams Partner Manager Relationship Specialty Start Date End Date Marcio Devlin DO [address] [place] [address] PCP - General Family Medicine 11/11/17 documented as of this encounter
--- OUTSIDE RECORDS SUMMARY | 2024-10-04 16:06 | XMS_ITS | Encounter Summary ---
Author Organization [place] [address] Care Team Providers Care Ems Director Name Role Phone Marcio Devlin DO Primary Care Provider [phone] Reason for Referral * Physical Therapy (Routine) - Closed Specialty Diagnoses / Procedures Referred By Missy escalera Referred To Contact Diagnoses Neck pain Chronic bilateral thoracic back pain Ankylosing spondylitis of cervical region Ulcerative colitis without complications, unspecified location High risk medication use Gabe Fong MD [facility] [address] [place] [address] Referral ID Status Reason Start Date Expiration Date V isits Requested Visits Authorized [id number] Closed Evaluate and Treat 08/06/2022 02/02/2023 12 12 Encounter Details Date Type Department Care Team (Late st Contact Info) Description 08/06/2022 9:30 AM EST Office [place] [address] Gabe Fong MD [facility] [address] [place] [place] [address] Neck pain; Chronic bilateral thoracic back pain; [...] however she has been talking with her weapons electrical engineering officer about getting in for repeat colonoscopy but [...] AM EST Hospital Encounter Non-Invasive [place] [address] Arrived 11/12/2024 8:00 AM EST Appointment Mammography/DXA at [place] [phone] Gabe Fong MD [facility] [address] [place] [place] [address] 11/30/2024 2:30 PM EDT Office [place] [address] Gabe Fong MD [facility] [address] [place] [place] [address] 12/07/2024 2:30 PM EDT TH Visit (TeleHealth) [place] [address] Rosemarie Morrow, SK[facility] [place] [address] Scheduled Referrals Name Type Priority Associated Diagnoses [...] medications documented in this encounter Care Teams Ems Director Relationship Specialty Start Date End Date Marcio Devlin DO [address] [place] [address] PCP - General Family Medicine 11/11/17 documented as of this encounter
--- OUTSIDE RECORDS SUMMARY | 2024-10-04 16:06 | XMS_ITS | Encounter Summary ---
Author Organization [facility] [place] [address] Care Team Providers Care Simulation Analyst Name Role Phone Marcio Devlin DO Primary Care Provider [phone] Reason for Referral * Diagnostic Test (Routine) - Closed Specialty Diagnoses / Procedures Referred By Contac t Referred To Contact Radiology Diagnoses Chronic left hip pain Procedures MRI Hip wo Contrast Left (Generic) MRI Hip wwo Contrast Left MRI Hip wo Contrast Left (Generic) Gabe Fong MD [facility] [address] [place] [address] [facility] Rad Mri [address] [place] [address] Referral ID Status Reason Start Date Expiration Date V isits Requested Visits Authorized [id number] Closed Specialty Service Requested 12/25/2021 06/26/2023 1 1 Reason for Visit * Diagnostic Test (Routine) - Closed Specialty Diagnoses / Procedures Referred By Contac t Referred To Contact Radiology Diagnoses Chronic left hip pain Procedures MRI Hip wo Contrast Left (Generic) MRI Hip wwo Contrast Left MRI Hip wo Contrast Left (Generic) Gabe Fong MD [facility] [address] [place] [address] [facility] Rad Mri [address] [place] [address] Referral ID Status Reason Start Date Expiration Date V isits Requested Visits Authorized [id number] Closed Specialty Service Requested 12/25/2021 06/26/2023 1 1 Encounter Details Date Type Department Care Team (Latest Contact Info) Description 02/04/2022 12:08 PM EDT - 02/04/2022 11:59 PM EDT Hospital Encounter Radiology MRI at [facility] [address] [place] [address] Gabe Fong MD [facility] [address] [place] [address] Chronic left hip pain Discharge Disposition: Home [...] by mouth daily. SUMAtriptan (IMITREX) 20 mg/actuation [place], Non-Aerosol 1 spray as needed. 11/03/2017 metFORMIN [...] AM EST Hospital Encounter Non-Invasive [place] [address] Arrived 11/12/2024 8:00 AM EST Appointment Mammography/[place] [address] Gabe Fong MD [facility] [place] [address] 11/30/2024 2:30 PM EDT Office Visit [place] [address] Gabe Fong MD [facility] [place] [address] 12/07/2024 2:30 PM EDT TH Visit (TeleHealth) [place] [address] Rosemarie Morrow APRN [facility] [place] [address] documented as of this encounter Procedures Procedure [...] who have questions please contact the health chiropractic care that requested your imaging first. ? [...] and sagittal PD FS sequences. Full pelvis [id number] axial T1, coronal T1 and STIR sequences [...] and sagittal PD FS sequences. Full pelvis thyeb-pg-[id number] axialT1, coronal T1 and STIR sequences are [...] patients who have questions please contactthe health chiropractic care that requested your imaging first. Gabe Fong MD IMG MRI ORDERABLES documented in this encounter Visit Diagnoses Diagnosis Chronic left hip pain Pain in joint, pelvic region and thigh documented in this encounter Care Teams Simulation Analyst Relationship Specialty Start Date End Date Marcio Devlin DO [address] [place] [address] PCP - General Family Medicine 11/11/17 documented as of this encounter
--- OUTSIDE RECORDS SUMMARY | 2024-10-04 16:06 | XMS_ITS | Encounter Summary ---
[place] [address] Care Team Providers Care Associate Veterinarian Name Role Phone Marcio Devlin DO Primary Care Provider [phone] Reason for Visit * Reason Comments Prior Authorization Stelara 90mg/ml SOSY Encounter Details Date Type Department Care Team (Late st Contact Info) Description 01/22/2022 Specialty [place] [address] Tiff Anglin CPHT Social History Tobacco Use [...] Kim Stricklandeneuve Patient : 1960 Patient Address: [address] [place] [id number] (home) Medication Name: STELARA 90 MG/ML SUBCUTANEOUS SYRINGE Medication ID: [id number] Subscriber Insurance: [employer] ([facility]) Subscriber Insurance Comment: Phone: [phone] Fax: Physician: Dajuan BERRY Physician Comment: Sent Via: Fax Truong: Ref/Case/PA#: [id number] Medication Strength Frequency Requested: Stelara 90mg/ml SOSY. Inject the contents of one syringe (90mg) subcutaneously once every 8 weeks Qty/Day Supply: New Start: Renewal Diagnosis & ICD-10 Code: K51.90 Patient Notified: No Submission Notes: RX#[id number] PA sent through [employer]. Tiff Anglin CPHT 01/22/22 9:30 AM documented in this encounter Plan of Treatment Upcoming Encounters Date Type Department Care Team (Late st Contact Info) Description 10/16/2024 10:00 AM EST Hospital Encounter Non-Invasive [place] [address] Arrived 11/12/2024 8:00 AM EST Appointment Mammography/[place] [address] Gabe Fong MD [facility] [address] [place] [address] 11/30/2024 2:30 PM EDT Office [place] [address] Gabe Fong MD [facility] [address] [place] [address] 12/07/2024 2:30 PM EDT TH Visit (TeleHealth) [place] [address] Rosemarie Morrow APRN [facility] [place] [address] documented as of this encounter Visit Diagnoses Not on filedocumented in this encounter Care Teams Associate Veterinarian Relationship Specialty Start Date End Date Marcio Devlin DO [address] [place], [place] [address] [address] PCP - General Family Medicine 11/11/17 documented as of this encounter
--- OUTSIDE RECORDS SUMMARY | 2024-10-04 16:06 | XMS_ITS | Encounter Summary ---
Author Organization [facility] [place] [address] Care Team Providers Care Squad Leader Name Role Phone Marcio Devlin DO [...] AM EST Hospital Encounter Non-Invasive Cardiology Lab [place] [address] Arrived 11/12/2024 8:00 AM EST Appointment Mammography/[place] [address] Gabe Fong MD [facility] [place] [address] 11/30/2024 2:30 PM EDT Office Visit Rheumatology at [place] [address] Gabe Fong MD [facility] [place] [address] 12/07/2024 2:30 PM EDT TH Visit (TeleHealth) Gastroenterology at [address] Rosemarie Morrow APRN [facility] [place] [address] documented as of this encounter Visit Diagnoses Not on filedocumented in this encounter Care Teams Squad Leader Relationship Specialty Start Date End Date Marcio Devlin, DO ALVAREZI: [phone] [address] [place] [address] PCP - General Family Medicine 11/11/17 documented as of this encounter
--- OUTSIDE RECORDS SUMMARY | 2024-10-04 16:06 | XMS_ITS | Encounter Summary ---
Author Organization [facility] [place] [address] Care Team Providers Care Senior Dot Net Developer Name Role Phone Marcio Devlin DO Primary Care Provider [phone] Encounter Details Date Type Department Care Team (Late st Contact Info) Description 01/18/2022 Telephone [place] [address] Janki Abdi Social History Tobacco Use Types [...] AM EST Hospital Encounter Non-Invasive [place] [address] Arrived 11/12/2024 8:00 AM EST Appointment Mammography/[place] [address] Gabe Fong MD [facility] [place] [address] 11/30/2024 2:30 PM EDT Office [place] [address] Gabe Fong MD [facility] [place] [address] 12/07/2024 2:30 PM EDT TH Visit (TeleHealth) Gastroenterology at [place] [phone] Rosemarie Morrow APRN [facility] [place] [address] documented as of this encounter Visit Diagnoses Not on filedocumented in this encounter Care Teams Senior Dot Net Developer Relationship Specialty Start Date End Date Marcio Devlin DO [address] [place] [address] PCP - General Family Medicine 11/11/17 documented as of this encounter
--- OUTSIDE RECORDS SUMMARY | 2024-10-04 16:07 | XMS_ITS | Encounter Summary ---
Author Organization [facility] Address [facility] [place] [address] Care Team Providers Care Home Sales Service Professional Name Role Phone Marcio Devlin DO Primary Care Provider [phone] Reason for Visit * Consultation (Routine) - Closed Specialty Diagnoses / Procedures Referred By Missy escalera Referred To Contact Dermatology Diagnoses Ulcerative pancolitis without complication Rash and other nonspecific skin eruption Rosemarie Morrow, SKPI [facility] [place] [address] [facility] [address] [place] [address] Referral ID Status Reason Start Date Expiration Date V isits Requested Visits Authorized [id number] Closed Consult, Test & Treat 07/09/2021 07/09/2022 1 1 Encounter Details Date Type Department Care Team (Late st Contact Info) Description 07/23/2021 4:15 PM EST Office Visit Dermatology at [facility] [address] [place] [address] Marc Augustine MD [facility] [place] [address] Folliculitis; Papular eczema Social History [...] Patient Instructions * Patient Instructions* Cecy Urias, [facility] - 07/23/2021 4:15 PM EST Sensitive Skin Care You have been diagnosed with a condition that requires a sensitive skin care regimen. It is very important to follow this plan as outlined below. ?? Discontinue ALL current personal care products. This includes soap, body wash, shampoo and conditioner, fragrance, nail slovenian, lotions and creams, laundry soap and fabric [...] ??? N/A RTC: PRN []Note routed to executive secretary []Recall placed in scheduling system []Appointment scheduled at checkout Scribe attestation: YG Bauer has performed the documentation for this encounter in thepresence of and acting as a scribe for Marc Augustine MD. I performed the above scribed service and agree with the accuracy of the documentation in this encounter. Reviewed and signed by: Marc Augustine MD Dermatology [facility] documented in this encounter Plan of Treatment Upcoming Encounters Date Type Department Care Team (Late st Contact Info) Description 10/16/2024 10:00 AM EST Hospital Encounter Non-Invasive Cardiology Lab [place] [phone] Arrived 11/12/2024 8:00 AM EST Appointment Mammography/[place] [address] Gabe Fong MD [facility] [place] [address] 11/30/2024 2:30 PM EDT Office Visit Rheumatology at [place] [phone] Gabe Fong MD [facility] [place] [address] 12/07/2024 2:30 PM EDT TH Visit (TeleHealth) [place] [address] Rosemarie Morrow APRN [facility] [place] [address] documented as of this encounter Visit Diagnoses Diagnosis Folliculitis Other specified disease of hair and hair follicles Papular eczema Contact dermatitis and other eczema, due to unspecified cause documented in this encounter Care Teams Home Sales Service Professional Relationship Specialty Start Date End Date Marcio Devlin DO [address] [place] [address] PCP - General Family Medicine 11/11/17 documented as of this encounter
--- OUTSIDE RECORDS SUMMARY | 2024-10-04 16:07 | XMS_ITS | Encounter Summary ---
Author Organization Formerly [facility] Address [facility] [place] [address] Care Team Providers Care Cattle Rancher Name Role Phone Marcio Devlin DO Primary Care Provider [phone] Encounter Details Date Type Department Care Team (Late st Contact Info) Description 07/24/2021 Refill [place] [phone] Dajuan Rachel MD [facility] [place] [address] Ulcerative pancolitis without complication Social History Tobacco [...] AM EST Hospital Encounter Non-[place] [phone] Arrived 11/12/2024 8:00 AM EST Appointment Mammography/DXA at [place] [phone] Gabe Fong MD [facility] [place] [address] 11/30/2024 2:30 PM EDT Office Visit [place] [address] Gabe Fong MD [facility] [place] [address] 12/07/2024 2:30 PM EDT TH Visit (TeleHealth) Gastroenterology at [place] [phone] Rosemarie Morrow APRN [facility] [place] [address] documented as of this encounter Visit Diagnoses Diagnosis Ulcerative pancolitis without complication documented in this encounter Care Teams Cattle Rancher Relationship Specialty Start Date End Date Marcio Devlin DO [address] [facility] [place] [address] PCP - General Family Medicine 11/11/17 documented as of this encounter
--- OUTSIDE RECORDS SUMMARY | 2024-10-04 16:07 | XMS_ITS | Encounter Summary ---
[place] [address] Care Team Providers Care Scratcher Name Role Phone Marcio Devlin DO Primary Care Provider [phone] Reason for Visit * Reason Onset Date Comments Reminder Appointment 01/29/2021 Encounter Details Date Type Department Care Team (Late st Contact Info) Description 01/29/2021 Telephone [place] [phone] Libby Guerin CCMA Reminder Appointment Social History [...] AM EST Hospital Encounter Non-Invasive Cardiology Lab [place] [phone] Arrived 11/12/2024 8:00 AM EST Appointment Mammography/[place] [address] Gabe Fong MD [facility] [place] [address] 11/30/2024 2:30 PM EDT Office Visit Rheumatology at [place] [phone] Gabe Fong MD [facility] [place] [address] 12/07/2024 2:30 PM EDT TH Visit (TeleHealth) [place] [address] Rosemarie Morrow APRN [facility] [place] [address] documented as of this encounter Visit Diagnoses Not on filedocumented in this encounter Care Teams Scratcher Relationship Specialty Start Date End Date Marcio Devlin DO 4 [place] [address] PCP - General Family Medicine 11/11/17 documented as of this encounter
--- OUTSIDE RECORDS SUMMARY | 2024-10-04 16:07 | XMS_ITS | Encounter Summary ---
Author Organization [facility] [place] [address] Care Team Providers Care Cnc Maintenance Mechanic Name Role Phone Marcio Devlin DO Primary Care Provider [phone] Reason for Visit * Treatment/Therapy Plan Authorization (Routine) - Closed Specialty Diagnoses / Procedures Referred By Contac t Referred To Contact Diagnoses Ulcerative pancolitis with other complication Procedures TC USTEKINUMAB (130MG/26ML), PER 1MG, INTRAVENOUS USE inf Dajuan Rachel MD [facility] [place] [address] [facility] Med Infusion [address] [place] [phone] Referral ID Status Reason Start Date Expiration Date Visits Re quested Visits Authorized [id number] Closed 02/08/2021 05/11/2021 5 5 Encounter Details Date Type Department Care Team (Latest Contact Info) Description 03/21/2021 1:24 PM EDT - 03/21/2021 11:59 PM EDT Hospital En[place] [address] Ulcerative pancolitis with other complication [...] by mouth daily. SUMAtriptan (IMITREX) 20 mg/actuation [place], Non-Aerosol 1 spray as needed. 11/03/2017 metFORMIN [...] EST Hospital Encounter Non-[place] [phone] Arrived 11/12/2024 8:00 AM EST Appointment Mammography/[place] [address] Gabe Fong MD [facility] [place] [address] 11/30/2024 2:30 PM EDT [place] [address] Gabe Fong MD [facility] [place] [address] 12/07/2024 2:30 PM EDT TH Visit (TeleHealth) Gastroenterology at [place] [phone] Rosemarie Morrow APRN [facility] [place] [address] documented as of this encounter Visit Diagnoses Diagnosis Ulcerative pancolitis with other complication documented in this encounter Administered Medications Inactive Administered Medications - up to 3 most recent administrations Medication Order MAR Action Action Date Dose Rate Site acetaminophen (Tylenol) 325 mg tablet 1 dose, Starting on Fri03/21/21 at 1334, Until Fri03/21/21 at 1330, Gwilt, Rosemarie I.: cabinet override acetaminophen (Tylenol) tablet 650 mg 650 mg, Oral, ONCE, 1 dose, On Fri03/21/21 at 1345, Maximum dose of acetaminophen is 4,000 mg from all sources in 24 hours, Routine Given 03/21/2021 1:30 PM EDT 650 mg loratadine (Claritin) 10 mg tablet 1 dose, Starting on Fri03/21/21 at 1335, Until Fri03/21/21 at 1330, Gwilt, Rosemarie I.: cabinet override loratadine (Claritin) tablet 10 [...] needs P&T approval: Approval not obtained [place] 03/21/2021 2:57 PM EDT 390 mg 250 mL/hr documented in this encounter Care Teams Cnc Maintenance Mechanic Relationship Specialty Start Date End Date Marcio Devlin DO [address] [place] [address] PCP - General Family Medicine 11/11/17 documented as of this encounter
--- OUTSIDE RECORDS SUMMARY | 2024-10-04 16:07 | XMS_ITS | Encounter Summary ---
[place] [address] Care Team Providers Care Distribution District Supervisor Name Role Phone Marcio Devlin DO Primary Care Provider [phone] Reason for Visit * Reason Onset Date Comments Reminder Appointment 05/15/2021 Encounter Details Date Type Department Care Team (Late st Contact Info) Description 05/15/2021 Telephone [place] [phone] Elisah Hall CMA Reminder Appointment Social History Tobacco Use Types [...] AM EST Hospital Encounter Non-Invasive Cardiology Lab [place] [phone] Arrived 11/12/2024 8:00 AM EST Appointment Mammography/[place] [address] Gabe Fong MD [facility] [place] [address] 11/30/2024 2:30 PM EDT Office [place] [address] Gabe Fong MD [facility] [place] [address] 12/07/2024 2:30 PM EDT TH Visit (TeleHealth) Gastroenterology at [place] [address] Rosemarie Morrow, SKIP [facility] [place] [address] documented as of this encounter Visit Diagnoses Not on filedocumented in this encounter Care Teams Distribution District Supervisor Relationship Specialty Start Date End Date Marcio Devlin DO 4 [place] [address] PCP - General Family Medicine 11/11/17 documented as of this encounter
--- OUTSIDE RECORDS SUMMARY | 2024-10-04 16:07 | XMS_ITS | Encounter Summary ---
Author Organization [facility] [place] [address] Care Team Providers Care Tool Inspector Name Role Phone Marcio Devlin DO Primary Care Provider [phone] Encounter Details Date Type Department Care Team (Late st Contact Info) Description 07/09/2021 Telephone [place] [address] Cedric Azar RN Social History [...] Stelara SQ dose. Got labs done at [facility] but wasn't sure if she needed Stelara [...] Hospital Encounter Non-Invasive Cardiology Lab [place] [phone] Arrived 11/12/2024 8:00 AM EST Appointment Mammography/DXA at [address] Gabe Fong MD [facility] [address] 11/30/2024 2:30 PM EDT Office Visit Rheumatology at [place] [phone] Gabe Fong MD [facility] [address] 12/07/2024 2:30 PM EDT TH Visit (TeleHealth) Gastroenterology at [place] [phone] Rosemarie Morrow APRN [facility] [place] [address] documented as of this encounter Visit Diagnoses Not on filedocumented in this encounter Care Teams Tool Inspector Relationship Specialty Start Date End Date Marcio Devlin DO [address] [place] [address] PCP - General Family Medicine 11/11/17 documented as of this encounter
--- OUTSIDE RECORDS SUMMARY | 2024-10-04 16:07 | XMS_ITS | Encounter Summary ---
Author Organization [facility] [place] [address] Care Team Providers Care Geriatric Nursing Assistant Name Role Phone Marcio Devlin DO Primary Care Provider [phone] Reason for Visit * Reason Comments Medication Management Encounter Details Date Type Department Care Team (Late st Contact Info) Description 03/23/2021 Specialty [place] [address] Sierra Peters RPH Social History [...] is mandated to [facility] ?? Reviewed [employer] co-pay program and recommended patient sign up for co-pay card if applicable ?? Telehealth injection teaching scheduled for 05/16/21 at 2:30 PM ?? Reviewed lab schedule with patient of every 2 weeks for 1 month starting after infusion, every month for 3 months and once every 4 months thereafter. The patient would like to utilize [facility] - orders are already in The patient was also made aware that they are eligible to participate in the [facility] ClinicalManagement Program. Services in this program include prior authorization and copay assistance, monthly refill reminders, routine pharmacist consults, and 07/04 pharmacist support during therapy. The patient was given [facility] contact information and was encouraged to reach out to the [facility] with any specialty medication-related questions or concerns. Specialty pharmacy will reach out to patient two weeks prior to due date to dispense medication. Sierra Peters RPH 03/23/2021 9:31 AM documented in this encounter Plan of Treatment Upcoming Encounters Date Type Department Care Team (Late st Contact Info) Description 10/16/2024 10:00 AM EST Hospital Encounter Non-[place] [phone] Arrived 11/12/2024 8:00 AM EST Appointment Mammography/[place] [address] Gabe Fong MD [facility] [place] [address] 11/30/2024 2:30 PM EDT Office [place] [address] Gabe Fong MD [facility] [address] 12/07/2024 2:30 PM EDT TH Visit (TeleHealth) [place] [address] Rosemarie Morrow APRN [facility] [place] [address] documented as of this encounter Visit Diagnoses Not on filedocumented in this encounter Care Teams Geriatric Nursing Assistant Relationship Specialty Start Date End Date Marcio Devlin DO [facility] [place] [place] [address] PCP - General Family Medicine 11/11/17 documented as of this encounter
--- OUTSIDE RECORDS SUMMARY | 2024-10-04 16:07 | XMS_ITS | Encounter Summary ---
Author Organization [facility] [place] [address] Care Team Providers Care Senior It Business Analyst Name Role Phone Marcio Devlin DO Primary Care Provider [phone] Encounter Details Date Type Department Care Team (Late st Contact Info) Description 03/23/2021 Refill [place] [address] Dajuan Rachel MD [facility] [place] [address] Ulcerative pancolitis without complication Social History Tobacco [...] RPH Transfer of Services Kim Funes [address] [facility] [address] Telephone Information: The [facility] has received a prescription [...] has been advised to call the [facility] at [phone] with any questions or concerns on this referral. Thank you, Sierra Peters RPH 03/23/21 9:43 AM Patient understands no changes to current drug regimen were made at this time. documented in this encounter Plan of Treatment Upcoming Encounters Date Type Department Care Team (Late st Contact Info) Description 10/16/2024 10:00 AM EST Hospital Encounter Non-Invasive [place] [phone] Arrived 11/12/2024 8:00 AM EST Appointment Mammography/[place] [phone] Gabe Fong MD [facility] [address] [place] [address] 11/30/2024 2:30 PM EDT Office [place] [address] Gabe Fong MD [facility] [address] [place] [place] [address] 12/07/2024 2:30 PM EDT TH Visit (TeleHealth) [place] [address] Rosemarie Morrow APRN [facility] [place] [address] documented as of this encounter Visit Diagnoses Diagnosis Ulcerative pancolitis without complication documented in this encounter Care Teams Senior It Business Analyst Relationship Specialty Start Date End Date Marcio Devlin DO [facility] [place] [address] [place] [address] PCP - General Family Medicine 11/11/17 documented as of this encounter
--- OUTSIDE RECORDS SUMMARY | 2024-10-04 16:07 | XMS_ITS | Encounter Summary ---
Author Organization [facility] [place] [address] Care Team Providers Care Enginehouse Brakeman Name Role Phone Marcio Devlin DO Primary Care Provider [phone] Reason for Visit * Reason Comments Specialty Pharmacy Review Encounter Details Date Type Department Care Team (Late st Contact Info) Description 09/17/2021 Specialty Pharm[place] [phone] Berenice Novak, [facility] Social History Tobacco Use Types Packs/Day [...] Novak - 09/17/2021 11:59 PM EST The [facility] has completed a benefits investigation for Kim Funes to review their eligibility to fill at [facility]. Per patient's medication list they are prescribed Stelara and the medication is not able to be filled at the [facility]. documented in this encounter Plan of Treatment Upcoming Encounters Date Type Department Care Team (Late st Contact Info) Description 10/16/2024 10:00 AM EST Hospital Encounter Non-Invasive Cardiology Lab [place] [phone] Arrived 11/12/2024 8:00 AM EST Appointment Mammography/[place] [address] Gabe Fong MD [facility] [place] [address] 11/30/2024 2:30 PM EDT [place] [address] Gabe Fong MD [facility] [place] [address] 12/07/2024 2:30 PM EDT TH Visit (TeleHealth) Gastroenterology at [place] [address] Rosemarie Morrow, SKIP [facility] [place] [address] documented as of this encounter Visit Diagnoses Not on filedocumented in this encounter Care Teams Enginehouse Brakeman Relationship Specialty Start Date End Date Marcio Devlin DO 4 [place] [address] PCP - General Family Medicine 11/11/17 documented as of this encounter
--- OUTSIDE RECORDS SUMMARY | 2024-10-04 16:07 | XMS_ITS | Encounter Summary ---
Author Organization [facility] [place] [address] Care Team Providers Care Electronics Research Engineer Name Role Phone Marcio Devlin DO Primary Care Provider [phone] Reason for Visit * Reason Comments Medication Refill Encounter Details Date Type Department Care Team (Late st Contact Info) Description 09/04/2021 Ref[place] [phone] Dajuan Rachel MD [facility] [place] [address] Ulcerative pancolitis without complication Social History Tobacco [...] AM EST Hospital Encounter Non[place] [address] Arrived 11/12/2024 8:00 AM EST Appointment Mammography/DXA at [address]1000 Gabe Fong MD [facility] [place] [address] 11/30/2024 2:30 PM EDT Office Visit Rheumatology at [place] [phone] Gabe Fong MD [facility] [place] [address] 12/07/2024 2:30 PM EDT TH Visit (TeleHealth) [place] [address] Rosemarie Morrow, SKIP [facility] [place] [address] documented as of this encounter Visit Diagnoses Diagnosis Ulcerative pancolitis without complication documented in this encounter Care Teams Electronics Research Engineer Relationship Specialty Start Date End Date Marcio Devlin DO [address] [place] [address] PCP - General Family Medicine 11/11/17 documented as of this encounter
--- OUTSIDE RECORDS SUMMARY | 2024-10-04 16:07 | XMS_ITS | Encounter Summary ---
Author Organization [facility] Address [facility] [place] [address] Care Team Providers Care Medical Coordinator Pesticide Use Name Role Phone Marcio Devlin DO Primary Care Provider [phone] Encounter Details Date Type Department Care Team (Latest Contact Info) Description 11/21/2021 2:45 PM EST - 11/21/2021 11:59 PM EST Hospital Encounter XRay at [address] [place] [address] Gabe Fong MD [facility] [place] [address] Pain in left hip; Ulcerative colitis without [...] by mouth daily. SUMAtriptan (IMITREX) 20 mg/actuation [place], Non-Aerosol 1 spray as needed. 11/03/2017 metFORMIN [...] Encounter Non-In[place] [address] Arrived 11/12/2024 8:00 AM EST Appointment Mammography/[place] [address] Gabe Fong MD [facility] [place] [address] 11/30/2024 2:30 PM EDT [place] [address] Gabe Fong MD [facility] [place] [address] 12/07/2024 2:30 PM EDT TH Visit (TeleHealth) [place] [address] Rosemarie Morrow APRN [facility] [address] documented as of this encounter Procedures Procedure [...] have questions please contact the health career professional that requested your imaging first. ? Narrative [...] of LEFT hip COMPARISON: Multiple examinations since 2006. FINDINGS: LEFT HIP A total hip arthroplasty [...] who have questions please contactthe health career professional that requested your imaging first. Gabe Fong MD IMG DX ORDERABLES documented in this encounter Visit Diagnoses Diagnosis Pain in left hip Pain in joint, pelvic region and thigh Ulcerative colitis without complications, unspecified location Inflammatory arthropathy Arthropathy, unspecified, site unspecified documented in this encounter Care Teams Medical Coordinator Pesticide Use Relationship Specialty Start Date End Date Marcio Devlin DO [address] [place] [address] PCP - General Family Medicine 11/11/17 documented as of this encounter
--- OUTSIDE RECORDS SUMMARY | 2024-10-04 16:07 | XMS_ITS | Encounter Summary ---
Author Organization [facility] [place] [address] Care Team Providers Care Dough Cutter Name Role Phone Marcio Devlin DO Primary Care Provider Reason for Referral * Consultation (Routine) - Closed Specialty Diagnoses / Procedures Referred By Missy escalera Referred To Contact Dermatology Diagnoses Ulcerative pancolitis without complication Rash and other nonspecific skin eruption Rosemarie Morrow APRN [facility] [place] [address] Htr Dermatology [address] [place] [address] Referral ID Status Reason Start Date Expiration Date V isits Requested Visits Authorized [id number] Closed Consult, Test & Treat 07/09/2021 07/09/2022 1 1 Encounter Details Date Type Department Care Team (Late st Contact Info) Description 07/09/2021 Orders [place] [address] Rosemarie Morrow APRN [facility] [place] [address] Ulcerative pancolitis without complication; Rash [...] Hospital Encounter Non-Invasive Cardiology Lab [place] [address] Arrived 11/12/2024 8:00 AM EST Appointment Mammography/DXA at [place] [address] Gabe Fong MD [facility] [place] [address] 11/30/2024 2:30 PM EDT Office Visit Rheumatology at [place] [address] Gabe Fong MD [facility] [place] [address] 12/07/2024 2:30 PM EDT TH Visit (TeleHealth) Gastroenterology at [place] [address] Rosemarie Morrow APRN [facility] [place] [address] Scheduled Referrals Name Type Priority Associated Diagnoses Orde r Schedule Referral to Dermatology Outpatient Referral Routine Ulcerative pancolitis without complication Rash and other nonspecific skin eruption Ordered: 07/09/2021 documented as of this encounter Visit Diagnoses Diagnosis Ulcerative pancolitis without complication Rash and other nonspecific skin eruption documented in this encounter Care Teams Dough Cutter Relationship Specialty Start Date End Date Myrter, Marcio A, DO [address] [place] [address] PCP - General Family Medicine 11/11/17 documented as of this encounter
--- OUTSIDE RECORDS SUMMARY | 2024-10-04 16:07 | XMS_ITS | Encounter Summary ---
Author Organization [facility] [place] [address] Care Team Providers Care Galvanometer Assembler Name Role Phone Marcio Devlin DO Primary Care Provider [phone] Reason for Visit * Reason Comments Specialty Pharmacy Review Encounter Details Date Type Department Care Team (Late st Contact Info) Description 01/29/2021 Specialty [place] [phone] Berenice Novak, [employer] [facility] Social History Tobacco Use Types Packs/Day Years [...] Novak - 01/29/2021 11:59 PM EDT The [facility] has completed a benefits investigation for Kim Funes to review their eligibility to fill at [facility]. Per patient's medication list they are prescribed Humira and the medication is not able to be filled at the [facility]. documented in this encounter Plan of Treatment Upcoming Encounters Date Type Department Care Team (Late st Contact Info) Description 10/16/2024 10:00 AM EST Hospital Encounter Non-Invasive Cardiology Lab [place] [phone] Arrived 11/12/2024 8:00 AM EST Appointment Mammography/[place] [address] Gabe Fong MD [facility] [place] [address] 11/30/2024 2:30 PM EDT [place] [address] Gabe Fong MD [facility] [place] [address] 12/07/2024 2:30 PM EDT TH Visit (TeleHealth) Gastroenterology at [place] [address] Rosemarie Morrow, [facility] [place] [address] documented as of this encounter Visit Diagnoses Not on filedocumented in this encounter Care Teams Galvanometer Assembler Relationship Specialty Start Date End Date Marcio Devlin DO [address] [place] [address] PCP - General Family Medicine 11/11/17 documented as of this encounter
--- OUTSIDE RECORDS SUMMARY | 2024-10-04 16:07 | XMS_ITS | Encounter Summary ---
Author Organization [facility] [place] [address] Care Team Providers Care Slime Plant Operator Helper Name Role Phone Marcio Devlin DO Primary Care Provider [phone] Reason for Visit * Reason Comments Follow-up Encounter Details Date Type Department Care Team (Late st Contact Info) Description 12/13/2021 9:00 AM EDT Office [place] [address] Gabe Fong MD [facility] [place] [address] Ankylosing spondylitis of cervical region; Neck pain; [...] Non-[place] [address] Arrived 11/12/2024 8:00 AM EST Appointment Mammography/[place] [address] Gabe Fong MD [facility] [place] [address] 11/30/2024 2:30 PM EDT [place] [phone] Gabe Fong MD [facility] [place] [address] 12/07/2024 2:30 PM EDT TH Visit (TeleHealth) [place] [phone] Rosemarie Morrow APRN [facility] [place] [address] documented as of this encounter Procedures Procedure [...] 10:05 AM EDT) Neutrophil % 60.0 % [facility] Neutrophil Absolute 4.27 1.70 - 6.10 x10(3)/[facility] LABORAT[facility] Lymph % 28.7 % [facility] Lymphocytes Abs 2.0 0.9 - 3.2 x10(3)/[facility] LABOR[facility]ORY Monocyte % 8.4 % [facility] Monocyte Abs 0.6 0.3 - 0.9 x10(3)/[facility] LABORATORY Eos % 2.2 % [facility] Eosinophils Abs 0.2 0.0 - 0.4 x10(3)/[facility] LABOR[facility]ORY Basophil % 0.4 % [facility] Baso Absolute 0.0 0.0 - 0.1 x10(3)/[facility] LABORATORY Immature Gran % 0.30 % [facility] Comment: Immature granulocytes(IG's)percentage and absolute count will include metamyelocytes, myelocytes, and promyelocytes. Blood smears from CBCs yielding IG's will be scanned manually for concordance. If this scan disagrees with the automated IG or if promyelocytes are noted, a manual differential will be performed. Immature Gran Absolute 0.02 0.00 - 0.04 x10(3)/mcL [facility] Blood 12/13/2021 10:0 5 AM EDT 12/13/2021 10:18 AM EDT Narrative Resulting Agency Comment Spec In Lab Gabe Fong MD HEMATOLOGY ORDERABLE S [facility] [place] [address] * (ABNORMAL) Hemogram (12/13/2021 10:05 AM EDT) White Blood Cell 7.1 4.0 - 9.5 x10(3)/mc L [facility] Red Blood Cell 4.60 4.00 - 5.21 x10(6)/mc L [facility] Hemoglobin 13.5 11.7 - 15.5 g/dL [facility] Hematocrit 42.1 35.7 - 45.8 % [facility] Mean Cell Volume 91.5 82.6 - 94.4 fL [facility] Mean Cell Hemoglobin 29.3 27.1 - 32.0 pg [facility] Mean Cell Hemoglobin Concentration 32.1 31.7 - 35.0 g/dL [facility] Platelet 283 145 - 357 x10(3)/mc L [facility] RDW Standard Deviation 47.9(H) 37.0 - 46.0 fL [facility] RDW coefficient of variation 14.4(H) 11.5 - 14.1 % [facility] Mean Platelet Volume 9.9 7.6 - 12.9 fL [facility] NRBC% auto 0.0 % [facility] NRBC Absolute 0.000 0.000 - 0.000 x10(3)/mc L [facility] Blood 12/13/2021 10:0 5 AM EDT 12/13/2021 10:18 AM EDT Narrative Resulting Agency Comment Spec In Lab Gabe Fong MD HEMATOLOGY ORDERABLE S [facility] [place] [address] * TPMT Activity Profile, RBC (12/13/2021 10:05 [...] and its performance characteristics ?determined by [facility] in a manner consistent with CLIA ?requirements. This test has not been cleared or approved by ?the U.S. Food and Drug Administration. ??6-Methylmercaptopu rine ? 3.63 ?nmol/mL/h ??3.00-6.66 ??6-Methylmercaptopu rine riboside ?7.44 ?nmol/mL/h ??5.04-9.57 ??6-Methylthioguanin e riboside ? 4.87 ?nmol/mL/h ??2.70-5.84 ??Reviewed By ?Nathaniel Serrato, Ph.D ?Test Performed by: ?[facility] ?[address] [place] [address] ?Inspector Insulation: Oc Lorenzo M.D. Ph.D.; CLIA# [id number] [facility] Blood 12/13/2021 10:0 5 AM EDT 12/13/2021 3:01 PM EDT Narrative Resulting Agency Comment Spec In Lab Gabe Fong MD LAB SEND OUT ORDERAB LES Performing Organization Address [facility] de Phone Number [facility] [place] [address] * Hepatitis B Core Antibody, Total (12/13/2021 10:05 AM EDT) Hepatitis B Core Antibody Negative Negative [facility] Blood 12/13/2021 10:0 5 AM EDT 12/13/2021 10:18 AM EDT Narrative Resulting Agency Comment Spec In Lab Gabe Fong MD CHEMISTRY ORDERABLES Performing Organization Address [facility]/ZIP Co de Phone Number [facility] [place] [address] * Creatinine (12/13/2021 10:05 AM EDT) Creatinine 0.88 0.70 - 1.20 mg/dL [facility] Est Glomerular Filtration Rate 71 >=60 mL/min/1. 73 m?? [facility] Comment: This patient? s [...] Resulting Agency Comment Spec In Lab Gabe oFng MD CHEMISTRY ORDERABLES Performing Organization Address [facility]/ZIP Co de Phone Number [facility] [place] [address] * (ABNORMAL) Hepatic Function Panel (12/13/2021 10:05 AM EDT) Protein, Total 8.4(H) 6.1 - 8.0 g/dL [facility] Albumin 4.3 3.2 - 5.2 g/dL [facility] Aspartate Aminotransferase 23 0 - 30 unit/L [facility] Alanine Aminotransferase 17 0 - 30 unit/L [facility] Alkaline Phosphatase 134(H) 35 - 105 unit/L [facility] Bilirubin, Total 0.3 0.2 - 1.3 mg/dL [facility] Bilirubin, Direct 0.1 0.0 - 0.3 mg/dL [facility] Blood 12/13/2021 10:0 5 AM EDT 12/13/2021 10:18 AM EDT Narrative Resulting Agency Comment Spec In Lab Gabe Fong MD CHEMISTRY ORDERABLES Performing Organization Address [facility] Co de Phone Number [facility] [place] [address] * (ABNORMAL) CRP, acute inflammation (12/13/2021 10:05 AM EDT) C-Reactive Protein 23.9(H) <=4.9 mg/L [facility] Blood 12/13/2021 10:0 5 AM EDT 12/13/2021 10:18 AM EDT Narrative Resulting Agency Comment Spec In Lab Gabe Fong MD CHEMISTRY ORDERABLES Performing Organization Address [facility] Co de Phone Number [facility] [place] [address] * (ABNORMAL) Sedimentation rate (12/13/2021 10:05 AM EDT) Sedimentation Rate Automated 70(H) 2 - 39 mm/hr [facility] Comment: Effective August 25, 2019 new capillary photometric technology has resulted in a change in reference ranges. It is recommended that each ESR result be reviewed with its own age appropriate reference range. Blood 12/13/2021 10:0 5 AM EDT 12/13/2021 10:18 AM EDT Narrative Resulting Agency Comment Spec In Lab Gabe Fong MD HEMATOLOGY ORDERABLE S Performing Organization Address [facility] Co de Phone Number [facility] [place] [address] * Lipid Panel (Reflex Direct LDL) (12/13/2021 10:05 AM EDT) Cholesterol, Total 146 mg/dL [facility] Comment: Lower Risk: <200 mg/dL Average Risk: 200-239 mg/dL Higher Risk: >kn=139 mg/dL Triglyceride 343 mg/dL [facility] Comment: Average Risk/Lower Risk: <150 mg/dL Borderline High Risk: 150-199 mg/dL High Risk: 200-499 mg/dL Very High Risk: >cb=150 mg/dL HDL Cholesterol 42 mg/dL [facility] Comment: Males: ?? Higher Risk: <40 mg/dL Females: ?? Higher Risk: <50 mg/dL LDL Cholesterol 35 mg/dL [facility] Comment: Lowest Risk: <100 mg/dL Lower Risk: 100-129 mg/dL Borderline High Risk: 130-159 mg/dL High Risk: 160-189 mg/dL Very High Risk: >kv=570 mg/dL Cholesterol/HDL Ratio 3.5 ratio [facility] Lipid Interpretation See Note [facility] Comment: Lipid management should be guided by a patient? s ASCVD risk, goals and preferences. ACC/AHA Guidelines recommend high intensity statin if clinical ASCVD or LDL greater than or equal to 190 mg/dL. http://[employer].com/SFL-UDC-Tocptjyzh Adults aged 40-75 with LDL 70-189 mg/dL should have their 10 year ASCVD risk estimated with the ACC/AHA ASCVD risk millwork estimator http://tools.acc.org/ZFTVD-Dhzy-Lysysmfnh/ Statin should be discussed if risk greater [...] MD CHEMISTRY ORDERABLES [facility] [place] [address] * XR Cervical Spine 2 or 3 [...] questions please contact the health home care companion that requested your imaging first. ? Narrative [...] have questions please contactthe health home care companion that requested your imaging first. Gabe Fong [...] location documented in this encounter Care Teams Slime Plant Operator Helper Relationship Specialty Start Date End Date Marcio Devlin DO [address] [place] [address] PCP - General Family Medicine 11/11/17 documented as of this encounter
--- OUTSIDE RECORDS SUMMARY | 2024-10-04 16:07 | XMS_ITS | Encounter Summary ---
Author Organization [facility] [place] [address] Care Team Providers Care Stamping Die Maker Name Role Phone Marcio Devlin DO Primary Care Provider [phone] Encounter Details Date Type Department Care Team (Latest Contact Info) Description 01/29/2021 4:30 PM EDT TH Visit (TeleHealth) [place] [phone] Dajuan Rachel MD [facility] [place] [place] [address] Ulcerative pancolitis without complication Social History Tobacco [...] sulfasalazine 5. Please have labs checked at [facility]; once on new medications, will need routine labs every 2 weeks at [facility] until next follow-up visit 6. Await [...] ??? Colonoscopy 09/19/08 (Dr. Shady Luz at [facility]) for surveillance for dysplasia. Areas of [...] 2020 - severe involvement of L colon, [id number] involvement of transverse and R colon. Worse [...] mouth daily. ??? SUMAtriptan (IMITREX) 20 mg/actuation [place], Non-Aerosol 1 spray as needed. ??? ferrous [...] by interface; created by interface; Colonoscopy, Biopsy (59833) (01/02/2011); Colonoscopy, Remv Lesn, Snare ([id number]) (01/02/2011); Colonoscopy, Biopsy ([id number]) (N/A, 03/04/2017); Colonoscopy, Remv Lesn, Snare ([id number]) (N/A, 03/04/2017); salpingectomy; orthopedic surgery; Vag Hyst, Rmv Tube/Ovary ([id number]) (N/A, 03/10/2018); Combined Ant/Post Colporrhaphy (63284) (N/A, 03/10/2018); Sling Oper Stres Incontinence (21815) (N/A, 03/10/2018); Revaginal Prolapse, Uterosacral (78941) (N/A, 03/10/2018); XR Fluoro Guided Joint Injection Large Right (Right, 03/09/2019); Colonoscopy, Diagnostic (21716) (N/A, 11/09/2019); Colonoscopy, Biopsy (68907) (N/A, 11/09/2019); and Colonoscopy, Biopsy ([id number]) (N/A, 12/19/2020). Family History: family history includes [...] sulfasalazine 5. Please have labs checked at [facility]; once on new medications, will need routine labs every 2 weeks at [facility] until next follow-up visit 6. Await opinion from Dr. Fong regarding medications 7. Follow-up in person or via telehealth in 8-12 weeks I spent 40 min today reviewing the chart preparing for this visit, counseling the patient [id number] on the issues outlined above, and documenting an implementing the plan. The patient was in [place] during this video telehealth visit. Freddy Rachel MD Anthropologist Physicalcone cleaner Co-Director, [facility] Section of Gastroenterology [place] [address] documented in this encounter Plan of Treatment Upcoming Encounters Date Type Department Care Team (Late st Contact Info) Description 10/16/2024 10:00 AM EST Hospital Encounter Non-Invasive [place] [phone] Arrived 11/12/2024 8:00 AM EST Appointment Mammography/[place] [address] Gabe Fong MD [facility] [place] [address] 11/30/2024 2:30 PM EDT Office [place] [phone] Gabe Fong MD [facility] [place] [address] 12/07/2024 2:30 PM EDT TH Visit (TeleHealth) [place] [address] Rosemarie Morrow APRN [facility] [place] [address] documented as of this encounter Visit Diagnoses Diagnosis Ulcerative pancolitis without complication documented in this encounter Care Teams Stamping Die Maker Relationship Specialty Start Date End Date Marcio Devlin DO [address] [place] [address] PCP - General Family Medicine 11/11/17 documented as of this encounter
--- OUTSIDE RECORDS SUMMARY | 2024-10-04 16:07 | XMS_ITS | Encounter Summary ---
Author Organization [facility] Address [facility] [place] [address] Care Team Providers Care Warehouse Assembly Worker Name Role Phone Marcio Devlin DO Primary Care Provider [phone] Encounter Details Date Type Department Care Team (Late st Contact Info) Description 07/19/2021 Orders [place] [phone] Gabe Fong MD [facility] [place] [address] Ulcerative colitis without complications, unspecified location; High [...] AM EST Hospital Encounter [place] [address] Arrived 11/12/2024 8:00 AM EST Appointment Mammography/DXA at [place] [phone] Gabe Fong MD [facility] [place] [address] 11/30/2024 2:30 PM EDT Office Visit Rheumatology at [place] [phone] Gabe Fong MD [facility] [place] [address] 12/07/2024 2:30 PM EDT TH Visit (TeleHealth) [place] [address] Rosemarie Morrow APRN [facility] [place] [address] documented as of this encounter Results * Hepatitis B Core Antibody, Total (12/13/2021 10:05 AM EDT) Hepatitis B Core Antibody Negative Negative [facility] Blood 12/13/2021 10:0 5 AM EDT 12/13/2021 10:18 AM EDT Narrative Resulting Agency Comment Spec In Lab Gabe Fong MD CHEMISTRY ORDERABLES [facility] [place] [address] documented in this encounter Visit Diagnoses Diagnosis Ulcerative colitis without complications, unspecified location High risk medication use Encounter for long-term (current) use of other medications Inflammatory arthropathy Arthropathy, unspecified, site unspecified Morning joint stiffness Stiffness of joint, not elsewhere classified, unspecified site documented in this encounter Care Teams Warehouse Assembly Worker Relationship Specialty Start Date End Date Marcio Devlin DO [address] [place] [address] PCP - General Family Medicine 11/11/17 documented as of this encounter
--- OUTSIDE RECORDS SUMMARY | 2024-10-04 16:07 | XMS_ITS | Encounter Summary ---
[place] [address] Care Team Providers Care Marble Polisher Hand Name Role Phone Marcio Devlin DO Primary Care Provider [phone] Encounter Details Date Type Department Care Team (Latest Contact Info) Description 08/06/2021 10:30 AM EST Laboratory Appointment Lab [address] [place] [address] Ulcerative colitis without complications, unspecified [...] Hospital Encounter Non-[place]vasive [place] [phone] Arrived 11/12/2024 8:00 AM EST Appointment Mammography/[place] [address] Gabe Fong MD [facility] [place] [address] 11/30/2024 2:30 PM EDT Office Visit Rheumatology at [place] [phone] Gabe Fong MD [facility] [address] [place] [address] 12/07/2024 2:30 PM EDT TH Visit (TeleHealth) [place] [address] Rosemarie Morrow APRN [facility] [place] [address] documented as of this encounter Procedures Procedure Name Priority Date/Time Associated Diagnosis Comments HC VENIPUNCTURE Routine 08/06/2021 10:15 AM EST Ulcerative colitis without complications, unspecified location High risk medication use Inflammatory arthropathy Morning joint stiffness documented in this encounter Results * [id number] Qualitative (08/06/2021 10:15 AM EST) G6PD Qual Negative screening for G6PD deficiency. [facility] Blood 08/06/2021 10:1 5 AM EST 08/06/2021 10:41 AM EST Narrative Resulting Agency Comment Spec In Lab Gabe Fong MD HEMATOLOGY ORDERABLE S [facility] [place] [address] documented in this encounter Visit Diagnoses Diagnosis Ulcerative colitis without complications, unspecified location High risk medication use Encounter for long-term (current) use of other medications Inflammatory arthropathy Arthropathy, unspecified, site unspecified Morning joint stiffness Stiffness of joint, not elsewhere classified, unspecified site documented in this encounter Care Teams Marble Polisher Hand Relationship Specialty Start Date End Date Marcio Devlin DO [address] [place] [address] PCP - General Family Medicine 11/11/17 documented as of this encounter
--- OUTSIDE RECORDS SUMMARY | 2024-10-04 16:07 | XMS_ITS | Encounter Summary ---
Author Organization [facility] [place] [address] Care Team Providers Care Credit Balance Specialist Name Role Phone Marcio Devlin DO Primary Care Provider [phone] Reason for Visit * Reason Onset Date Comments Medication Refill 09/04/2021 Encounter Details Date Type Department Care Team (Late st Contact Info) Description 09/04/2021 Refill [place] [address] Lola Haley, [facility] [place] [address] Social History Tobacco Use Types Packs/Day Years [...] AM EST Hospital Encounter Non-[place] [address] Arrived 11/12/2024 8:00 AM EST Appointment Mammography/DXA at [place] [address] Gabe Fong MD [facility] [place] [address] 11/30/2024 2:30 PM EDT Office Visit Rheumatology at [place] [phone] Gabe Fong MD [facility] [place] [address] 12/07/2024 2:30 PM EDT TH Visit (TeleHealth) [place] [address] Rosemarie Morrow, SK[facility] [place] [address] documented as of this encounter Visit Diagnoses Not on filedocumented in this encounter Care Teams Credit Balance Specialist Relationship Specialty Start Date End Date Marcio Devlin DO [address] [place] [address] PCP - General Family Medicine 11/11/17 documented as of this encounter
--- OUTSIDE RECORDS SUMMARY | 2024-10-04 16:07 | XMS_ITS | Encounter Summary ---
Author Organization [facility] Address [facility] [place] [address] Care Team Providers Care Brine Plant Operator Name Role Phone Marcio Devlin DO Primary Care Provider [phone] Encounter Details Date Type Department Care Team (Late st Contact Info) Description 07/19/2021 Orders [place] [phone] Gabe Fong MD [facility] [address] [place] [address] Ulcerative colitis without complications, unspecified location; High [...] AM EST Hospital Encounter Non-[place] [address] Arrived 11/12/2024 8:00 AM EST Appointment Mammography/[place] [address] Gabe Fong MD [facility] [place] [address] 11/30/2024 2:30 PM EDT Office Visit Rheumatology at [place] [phone] Gabe Fong MD [facility] [place] [address] 12/07/2024 2:30 PM EDT TH Visit (TeleHealth) [place] [phone] Rosemarie Morrow, [facility] [place] [address] documented as of this encounter Results * TPMT Activity Profile, RBC (12/13/2021 10:05 AM EDT) [facility] Tpmt Activity Profile, Rbc (MAY) Test ? Result ?Flag ??Unit ? RefValue TPMT Activity Profile, RBC ??Interpretation ? SEE COMMENTS ?*Normal* In this whole blood sample, the profile of ?activity of thiopurine methyltransferase using three ?different substrates was normal or essentially normal. ? -ADDITIONAL INFORMATION--------- ?Liquid Chromatography-Tande m Mass Spectrometry (LC-MS/MS) ?This test was developed and its performance characteristics ?determined by [facility] in a manner consistent with CLIA ?requirements. This test has not been cleared or approved by ?the U.S. Food and Drug Administration. ??6-Methylmercaptopu rine ? 3.63 ?nmol/mL/h ??3.00-6.66 ??6-Methylmercaptopu rine riboside ?7.44 ?nmol/mL/h ??5.04-9.57 ??6-Methylthioguanin e riboside ? 4.87 ?nmol/mL/h ??2.70-5.84 ??Reviewed By ?Nathaniel Serrato, Ph.D ?Test Performed by: ?[facility] ?[address] [place] [address] ?Director Operating: Oc Lorenzo M.D. Ph.D.; CLIA# [id number] [facility] Blood 12/13/2021 10:0 5 AM EDT 12/13/2021 3:01 PM EDT Narrative Resulting Agency Comment Spec In Lab Gabe Fong MD LAB SEND OUT ORDERAB LES [facility] [place] [id number] * [id number] Qualitative (08/06/2021 10:15 AM EST) G6PD Qual Negative screening for G6PD deficiency. [facility] Blood 08/06/2021 10:1 5 AM EST 08/06/2021 10:41 AM EST Narrative Resulting Agency Comment Spec In Lab Gabe Fong MD HEMATOLOGY ORDERABLE S Performing Organization Address City/State/[facility] Co de Phone Number [facility] [place] [address] documented in this encounter Visit Diagnoses Diagnosis Ulcerative colitis without complications, unspecified location High risk medication use Encounter for long-term (current) use of other medications Inflammatory arthropathy Arthropathy, unspecified, site unspecified Morning joint stiffness Stiffness of joint, not elsewhere classified, unspecified site documented in this encounter Care Teams Brine Plant Operator Relationship Specialty Start Date End Date Marcio Devlin DO [address] [place] [address] PCP - General Family Medicine 11/11/17 documented as of this encounter
--- OUTSIDE RECORDS SUMMARY | 2024-10-04 16:07 | XMS_ITS | Encounter Summary ---
Author Organization [facility] [place] [address] Care Team Providers Care Assembler Wire Group Name Role Phone Marcio Devlin DO Primary Care Provider [phone] Encounter Details Date Type Department Care Team (Late st Contact Info) Description 09/04/2021 [place] [phone] Yanely Mendenhall Social History Tobacco Use Types [...] AM EST Hospital Encounter Non[place] [phone] Arrived 11/12/2024 8:00 AM EST Appointment Mammography/DXA at [place] [phone] Gabe Fong MD [facility] [place] [address] 11/30/2024 2:30 PM EDT Office Visit Rheumatology at [place] [phone] Gabe Fong MD [facility] [place] [address] 12/07/2024 2:30 PM EDT TH Visit (TeleHealth) Gastroenterology at [place] [phone] Rosemarie Morrow APRN [facility] [place] [address] documented as of this encounter Visit Diagnoses Not on filedocumented in this encounter Care Teams Assembler Wire Group Relationship Specialty Start Date End Date Marcio Devlin DO [address] [place] [address] PCP - General Family Medicine 11/11/17 documented as of this encounter
--- OUTSIDE RECORDS SUMMARY | 2024-10-04 16:07 | XMS_ITS | Encounter Summary ---
[place] [address] Care Team Providers Care Charge Rn Name Role Phone Marcio Devlin DO Primary Care Provider [phone] Reason for Visit * Reason Comments Prior Authorization Stelara 90mg/mL SOSY Encounter Details Date Type Department Care Team (Late st Contact Info) Description 02/13/2021 Specialty [place] [phone] Jacky Montalvo, [facility] Social History Tobacco Use Types [...] Kim Funes Patient : 1960 Patient Address: [address] [place] [phone] (home) Medication Name: STELARA 90 MG/ML SUBCUTANEOUS SYRINGE Medication ID: [id number] Patient Location: [facility] Patient Location Comment: Subscriber Insurance: [employer] ([facility]) Subscriber Insurance Comment: Fax: Physician: Dajuan BERRY Physician Comment: Sent Via: [facility] Truong: [phone] Ref/Case/PA#: Medication Strength Frequency Requested: Stelara 90mg/mL [...] STELARA 90 MG/ML SUBCUTANEOUS SYRINGE Medication ID: [id number] Case/Reference # : [id number] Denial Summary: PA denied because there was not documentation of the patient's induction dosing. GMto do an appeal. Patient Notified of Denial: No Additional Information from insurance carrier. Please see below: None For any questions relating to this denial please reach out directly to your section's specialty pharmacist, or the specialty pharmacy team at [facility] Jacky Montalvo 02/16/21 10:02 AM * Sierra Peters, [facility] - 02/13/2021 4:04 PM EDT [...] Approved from: 03/06/2021 to 06/05/2021 Reference Number: [id number] Can be filled with: [facility] Patient Notified of Approval: To be contacted by [facility] for consult Additional Information regarding this Appeal: None For any questions relating to this appeal please reach out directly to your section's specialty pharmacist. Sierra Peters RPH 03/08/21 3:12 PM documented in this encounter Plan of Treatment Upcoming Encounters Date Type Department Care Team (Late st Contact Info) Description 10/16/2024 10:00 AM EST Hospital Encounter Non-[place] [phone] Arrived 11/12/2024 8:00 AM EST Appointment Mammography/[place] [phone] Gabe Fong MD [facility] [address] [place] [address] 11/30/2024 2:30 PM EDT Office [place] [phone] Gabe Fong MD [facility] [place] [address] 12/07/2024 2:30 PM EDT TH Visit (TeleHealth) [place] [phone] Rosemarie Morrow APRN [facility] DR [place] [address] documented as of this encounter Visit Diagnoses Not on filedocumented in this encounter Care Teams Charge Rn Relationship Specialty Start Date End Date Marcio Devlin DO [address] [place] [address] PCP - General Family Medicine 11/11/17 documented as of this encounter
--- OUTSIDE RECORDS SUMMARY | 2024-10-04 16:07 | XMS_ITS | Encounter Summary ---
Author Organization [facility] Address [facility] [place] [address] Care Team Providers Care Policy Services Representative Name Role Phone Marcio Devlin DO Primary Care Provider [phone] Encounter Details Date Type Department Care Team (Late st Contact Info) Description 10/10/2021 Orders Only [place] [phone] Gabe Fong MD [facility] [address] [place] [address] Ulcerative colitis without complications, unspecified location; High [...] AM EST Hospital Encounter Non-Invasive [place] [address] Arrived 11/12/2024 8:00 AM EST Appointment Mammography/DXA at [address] Gabe Fong MD [facility] [place] [place] [address] 11/30/2024 2:30 PM EDT Office Visit Rheumatology at [place] [phone] Gbae Fong MD [facility] [place] [address] 12/07/2024 2:30 PM EDT TH Visit (TeleHealth) [place] [phone] Rosemarie Morrow, SKIP [facility] [place] [address] documented as of this encounter Visit Diagnoses Diagnosis Ulcerative colitis without complications, unspecified location High risk medication use Encounter for long-term (current) use of other medications Inflammatory arthropathy Arthropathy, unspecified, site unspecified documented in this encounter Care Teams Policy Services Representative Relationship Specialty Start Date End Date Marcio Devlin DO [address] [place] [address] PCP - General Family Medicine 11/11/17 documented as of this encounter
--- OUTSIDE RECORDS SUMMARY | 2024-10-04 16:07 | XMS_ITS | Encounter Summary ---
Author Organization [facility] [place] [address] Care Team Providers Care Pe Teacher Name Role Phone Marcio Devlin DO Primary Care Provider [phone] Encounter Details Date Type Department Care Team (Latest Contact Info) Description 09/17/2021 2:30 PM EST TH Visit (TeleHealth) [place] [phone] Dajuan Rachel MD [facility] [place] [address] Ulcerative pancolitis with complication Social History Tobacco [...] Rachel MD - 09/17/2021 2:30 PM EST [facility] Gastroenterology Telehealth Visit Primary care provider: [...] ?? Escalated to weekly Humira 11/2019. ADA (centrahoma) from 6 q 2wk to 12.7 qwk, as well as BID SSZ ?? Colonoscopy Oct 2019: normal rectum, mod-severe inflammation and narrowing from 6-25 cm from theanus, normal remainder of colon. Path: mild active chronic colitis in ac/tc/dc/sc, severe active colitis with ulceration in proximal rectum ?? Colonoscopy December 2020 - severe involvement of L colon, rqmk-du-cjyjccqu involvement of transverse and R colon. Worse compared to last exam. SSA at hepatic flexure ?? Adalimumab level (centrahoma) was 12.7 ?? Switched to Stelara ( 03/21/21, first infusion dose) d/t Lost of response to Humira. Stopped Uceris and sulfasalazine in January 2021. ? CURRENT MEDS: Stelara ( 03/21/21, first infusion dose) ?? Interval history: - Last visit with Delilah Morrow [employer] 05/15/2021. - Feels much better since starting [...] preparing for this visit, counseling the patient [id number] on the issues outlined above, and documenting an implementing the plan. Ms. Funes was in [place]. Freddy Rachel MD Institutional Asset Managerprecision millwright Co-Director, [facility] Section of [place]astroenterology [place] [address] documented in this encounter Plan of Treatment Upcoming Encounters Date Type Department Care Team (Late st Contact Info) Description 10/16/2024 10:00 AM EST Hospital Encounter Non-Invasive Cardiology Lab [place] [phone] Arrived 11/12/2024 8:00 AM EST Appointment Mammography/[place] [address] [facility] [place] [address] 11/30/2024 2:30 PM EDT Office [place] [phone] [facility] [place] [address] 12/07/2024 2:30 PM EDT TH Visit (TeleHealth) [place] [address] [facility] [place] [address] Scheduled Orders Name Type Priority Associated Diagnoses Orde r Schedule ENDOSCOPY CASE REQUEST: COLONOSCOPY, DIAGNOSTIC Procedures Routine Ulcerative pancolitis with complication Ordered: 09/17/2021 documented as of this encounter Visit Diagnoses Diagnosis Ulcerative pancolitis with complication documented in this encounter Care Teams Pe Teacher Relationship Specialty Start Date End Date Marcio Devlin DO [address] [place] [address] PCP - General Family Medicine 11/11/17 documented as of this encounter
--- OUTSIDE RECORDS SUMMARY | 2024-10-04 16:07 | XMS_ITS | Encounter Summary ---
[place] [address] Care Team Providers Care Merchandise Handler Name Role Phone Marcio Devlin DO Primary Care Provider [phone] Encounter Details Date Type Department Care Team (Late st Contact Info) Description 05/15/2021 Orders [place] [address] Rachelle Acevdeo RN Ulcerative pancolitis without complication; Encounter for [...] AM EST Hospital Encounter Non-Invasive [place] [address] Arrived 11/12/2024 8:00 AM EST Appointment Mammography/[place] [address] Gabe Fong MD [facility] [place] [address] 11/30/2024 2:30 PM EDT Office Visit Rheumatology at [place] [phone] Gabe Fong MD [facility] [place] [address] 12/07/2024 2:30 PM EDT TH Visit (TeleHealth) [place] [address] Rosemarie Morrow, SKIP [facility] [place] [address] documented as of this encounter Visit Diagnoses Diagnosis Ulcerative pancolitis without complication Encounter for therapeutic drug level monitoring Encounter for therapeutic drug monitoring documented in this encounter Care Teams Merchandise Handler Relationship Specialty Start Date End Date Marcio Devlin DO [address] [place] [address] PCP - General Family Medicine 11/11/17 documented as of this encounter
--- OUTSIDE RECORDS SUMMARY | 2024-10-04 16:07 | XMS_ITS | Encounter Summary ---
Author Organization [facility] [place] [address] Care Team Providers Care Table Games Shift Manager Name Role Phone Marcio Devlin DO Primary Care Provider [phone] Reason for Visit * Reason Onset Date Comments Medication Refill 02/13/2021 Encounter Details Date Type Department Care Team (Late st Contact Info) Description 02/13/2021 [place] [address] Dajuan Racehl MD [facility] [place] [address] Ulcerative pancolitis without complication Social History Tobacco [...] AM EST Hospital Encounter Non-Invasive Cardiology Lab [facility] [place] [address] Arrived 11/12/2024 8:00 AM EST Appointment Mammography/DXA at [address] Gabe Fong MD [facility] [place] [address] 11/30/2024 2:30 PM EDT Office Visit Rheumatology at [address] Gabe Fong MD [facility] [place] [address] 12/07/2024 2:30 PM EDT TH Visit (TeleHealth) Gastroenterology at [place] [phone] Rosemarie Morrow, SKIP [facility] [place] [address] documented as of this encounter Visit Diagnoses Diagnosis Ulcerative pancolitis without complication documented in this encounter Care Teams Table Games Shift Manager Relationship Specialty Start Date End Date Marcio Devlin DO [address] [place] [address] PCP - General Family Medicine 11/11/17 documented as of this encounter
--- OUTSIDE RECORDS SUMMARY | 2024-10-04 16:07 | XMS_ITS | Encounter Summary ---
Author Organization [facility] [place] [address] Care Team Providers Care Ironworker Foreman Name Role Phone Marcio Devlin DO Primary Care Provider [phone] Encounter Details Date Type Department Care Team (Latest Contact Info) Description 05/15/2021 12:00 PM EDT TH Visit (TeleHealth) [place] [address] Rosemarie Morrow, LABORATORY SUPERVISOR [facility] [place] [address] Ulcerative pancolitis without complication Social History Tobacco [...] Morrow, SKIP - 05/15/2021 12:00 PM EDT [facility] Telehealth Visit Primary care provider: Marcio [...] ?? Colonoscopy 09/19/08 (Dr. Shady Luz at [facility]) for surveillance for dysplasia. Areas [...] 2020 - severe involvement of L colon, wmqd-zl-lnocgjwe involvement of transverse and R colon. Worse [...] Feeling better - BM 3-4x/day ( from fk43-42c/day), formed stool, no nocturnal bm - No [...] Ref Range Status ??? COLONOSCOPY 12/19/2020 Final Value:[facility] Endoscopy Procedure Date: 12/19/2020 12:03 PM Patient Name: Kim Funes Date of : 1960 Age: 60 Order #: [id number] Instrument Name: [id number] Procedure: Colonoscopy Patient Profile: This is a [...] bowel preparation was evaluated using the BBPS ([place] Bowel Preparation Scale) with scores of: Right [...] severe involvement of the left colon and ggxl-xp-waibrbex involvement of the transverse and right colon. [...] PM ??? Surgical Pathology Report 12/19/2020 Final Value:[id number] Location: 4T; EA07; A The signing pathologist [...] MD Verified: 12/26/2020 15:38 Pathologist Performed at: -[facility] Dept. of Pathology, [place], [place] ADDITIONAL STUDIES Immunohistochemistry Studies: Formalin-fixed, paraffin-embedded [...] Labs were reviewed from March. Adalimumab level (bronx) was 12.7. CBC, ESR, CMP were unremarkable. [...] this patient. Renee Morrow APRN Gastroenterology Section [facility] documented in this encounter Plan of Treatment Upcoming Encounters Date Type Department Care Team (Late st Contact Info) Description 10/16/2024 10:00 AM EST Hospital Encounter Non-Invasive [place] [address] Arrived 11/12/2024 8:00 AM EST Appointment Mammography/DXA at [place] [address] Gabe Fong MD [facility] [place] [address] 11/30/2024 2:30 PM EDT Office Visit Rheumatology at [address]1000 Gabe Fong MD [facility] [place] [address] 12/07/2024 2:30 PM EDT TH Visit (TeleHealth) [place] [address] Rosemarie Morrow APRN [facility] [place] [place] [address] documented as of this encounter Visit Diagnoses Diagnosis Ulcerative pancolitis without complication documented in this encounter Care Teams Ironworker Foreman Relationship Specialty Start Date End Date Marcio Devlin DO [address] [place] [address] PCP - General Family Medicine 11/11/17 documented as of this encounter
--- OUTSIDE RECORDS SUMMARY | 2024-10-04 16:07 | XMS_ITS | Encounter Summary ---
Author Organization [facility] [place] [address] Care Team Providers Care Instructor Flying Name Role Phone Marcio Devlin DO Primary Care Provider [phone] Encounter Details Date Type Department Care Team (Latest Contact Info) Description 02/05/2021 2:00 PM EDT TH Visit (TeleHealth) [place] [address] Gabe Fong MD [facility] [place] [place] [address] Ulcerative colitis without complications, unspecified location; High [...] AM EST Hospital Encounter Non-Invasive [place] [address] Arrived 11/12/2024 8:00 AM EST Appointment Mammography/DXA at [place] [address] Gabe Fong MD [facility] [place] [address] 11/30/2024 2:30 PM EDT Office Visit Rheumatology at [place] [phone] Gabe Fong MD [facility] [place] [address] 12/07/2024 2:30 PM EDT TH Visit (TeleHealth) Gastroenterology at [place] [phone] Rosemarie Morrow APRN [facility] [place] [address] documented as of this encounter Visit Diagnoses [...] location documented in this encounter Care Teams Instructor Flying Relationship Specialty Start Date End Date Marcio Devlin DO [address] [place] [address] PCP - General Family Medicine 11/11/17 documented as of this encounter
--- OUTSIDE RECORDS SUMMARY | 2024-10-04 16:07 | XMS_ITS | Encounter Summary ---
Author Organization [facility] [place] [address] Care Team Providers Care Dielectric Machine Operator Name Role Phone Marcio Devlin DO Primary Care Provider [phone] Reason for Visit * Reason Comments Prior Authorization Stelara 90mg/ml SOSY Encounter Details Date Type Department Care Team (Late st Contact Info) Description 07/18/2021 Specialty [place] [phone] Silviano Villalta, [facility] Social History Tobacco Use Types Packs/Day [...] team to assist with PA. * Silviano Vlilalta - 07/18/2021 12:09 PM EDT [facility], Medication Prior Authorization Submission Patient: Kim Funes Patient : 1960 Patient Address: [address] [place] [phone] (home) Medication Name: STELARA 90 MG/ML SUBCUTANEOUS SYRINGE Medication ID: [id number] Subscriber Insurance: [employer] ([facility]) Subscriber Insurance Comment: Phone: [phone] Fax: Physician: Dajuan BERRY Physician Comment: Sent Via: [facility] Truong: [id number] Ref/Case/PA#: Medication Strength Frequency Requested: Inject the [...] STELARA 90 MG/ML SUBCUTANEOUS SYRINGE Medication ID: [id number] Approval Dates: 07/23/2021 to 07/22/2022 Insurance requirements/notes: None Other Notes: None Case/Reference #: [id number] Approval notification Received via: Fax Copay: n/a Copay assistance: Other (Enter Comment) Copay Notes: Insurance Mandate of [facility] unable to see co-pay. Insurance mandated Pharmacy: [facility] Fillable at [facility] Special[facility] Pharm[facility]: No Pharmacy staff will be [...] AM EST Hospital Encounter Non-Invasive [place] [address] Arrived 11/12/2024 8:00 AM EST Appointment Mammography/[place] [address] [facility] [place] [address] 11/30/2024 2:30 PM EDT Office Visit Rheumatology at [place] [phone] [facility] [place] [address] 12/07/2024 2:30 PM EDT TH Visit (TeleHealth) Gastroenterology at [place] [phone] [facility] [place] [address] documented as of this encounter Visit Diagnoses Not on filedocumented in this encounter Care Teams Dielectric Machine Operator Relationship Specialty Start Date End Date Marcio Devlin DO [address] [place] [address] PCP - General Family Medicine 11/11/17 documented as of this encounter
--- OUTSIDE RECORDS SUMMARY | 2024-10-04 16:07 | XMS_ITS | Encounter Summary ---
Author Organization [facility] [place] [address] Care Team Providers Care Agricultural Mechanic Name Role Phone Marcio Devlin DO Primary Care Provider [phone] Reason for Visit * Reason Comments Medication Management Patient Education Encounter Details Date Type Department Care Team (Latest Contact Info) Description 05/16/2021 4:00 PM EDT Clinical Support [place] [address] Ulcerative pancolitis without complication Social [...] this encounter Progress Notes * Sierra Peters, [facility] - 05/16/2021 4:00 PM EDT Patient Injection/Medication [...] AM EST Hospital Encounter Non-Invasive [place]iology [place] [address] Arrived 11/12/2024 8:00 AM EST Appointment Mammography/[place] [address] Gabe Fong MD [facility] [place] [address] 11/30/2024 2:30 PM EDT Office Visit Rheumatology at [place] [phone] Gabe Fong MD [facility] [place] [address] 12/07/2024 2:30 PM EDT TH Visit (TeleHealth) [place] [phone] Rosemarie Morrow APRN [facility] [place] [address] documented as of this encounter Visit Diagnoses Diagnosis Ulcerative pancolitis without complication documented in this encounter Care Teams Agricultural Mechanic Relationship Specialty Start Date End Date Marcio Devlin DO [address] [place] [address] PCP - General Family Medicine 11/11/17 documented as of this encounter
--- OUTSIDE RECORDS SUMMARY | 2024-10-04 16:07 | XMS_ITS | Encounter Summary ---
Author Organization [facility] [place] [address] Care Team Providers Care Warm In Name Role Phone Marcio Devlin DO Primary Care Provider [phone] Reason for Referral * Physical Therapy (Routine) - Closed Specialty Diagnoses / Procedures Referred By Contac t Referred To Contact Diagnoses Trochanteric bursitis of left hip Saurabh Mercado MD [facility] [place] [address] Referral ID Status Reason Start Date Expiration Date V isits Requested Visits Authorized [id number] Closed Evaluate and Treat 11/21/2021 05/20/2022 12 12 Reason for Visit * Reason Comments Follow-up L ROSS 2006 (Ginger) P AIN * Consultation (Routine) - Closed Specialty Diagnoses / Procedures Referred By Contac t Referred To Contact Orthopaedics Diagnoses Pain in left hip Mass of joint of left hip Gabe Fong MD [facility] [address] [facility] Orth[facility]ics [address] [place] [phone] Referral ID Status Reason Start Date Expiration Date V isits Requested Visits Authorized [id number] Closed Consult, Test & Treat 11/15/2021 11/15/2022 1 1 Encounter Details Date Type Department Care Team (Late st Contact Info) Description 11/21/2021 4:00 PM EST Office [place] [address] Saurabh Mercado MD 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 She reports that she is only able [...] to hospital since recent ortho surgery Yes [facility] Date of admission 03/10/2018 Discharge date [...] Hospital Encounter Non-Invasive Cardiology Lab [place] [phone] Arrived 11/12/2024 8:00 AM EST Appointment Mammography/DXA at [address] Gabe Fong MD [facility] [place] [address] 11/30/2024 2:30 PM EDT Office Visit Rheumatology at [place] [phone] Gabe Fong MD [facility] [address] 12/07/2024 2:30 PM EDT TH Visit (TeleHealth) Gastroenterology at [place] [phone] Rosemarie Morrow APRN [facility] [address] Scheduled Referrals Name Type Priority Associated Diagnoses Orde r Schedule Referral to Physical Therapy Outpatient Referral Routine Trochanteric bursitis of left hip Ordered: 11/21/2021 documented as of this encounter Visit Diagnoses Diagnosis Trochanteric bursitis of left hip Enthesopathy of hip region documented in this encounter Care Teams Warm In Relationship Specialty Start Date End Date Marcio Devlin DO [address] [place] [address] PCP - General Family Medicine 11/11/17 documented as of this encounter
--- OUTSIDE RECORDS SUMMARY | 2024-10-04 16:07 | XMS_ITS | Encounter Summary ---
Author Organization [facility] [place] [address] Care Team Providers Care Object Oriented Developer Name Role Phone Marcio Devlin DO Primary Care Provider [phone] Reason for Visit * Reason Comments Specialty Pharmacy Review Stelara 90mg/m l syringe Encounter Details Date Type Department Care Team (Late st Contact Info) Description 12/13/2021 Specialty [place] [phone] Celeste Mayes, [facility] Social History Tobacco Use Types [...] Mayes - 12/13/2021 11:59 PM EDT The [facility] has completed a benefits investigation for Kim Graff Shantel to review their eligibility to fill at [facility]. Per patient's medication list they are prescribed Stelara 90mg/ml and the medication is not able to be filled at the [facility]. documented in this encounter Plan of Treatment Upcoming Encounters Date Type Department Care Team (Late st Contact Info) Description 10/16/2024 10:00 AM EST Hospital Encounter Non-Invasive [place] [phone] Arrived 11/12/2024 8:00 AM EST Appointment Mammography/[place] [address] Gabe Fong MD [facility] [place] [place] [address] 11/30/2024 2:30 PM EDT Office [place] [address] Gabe Fong MD [facility] [place] [place] [address] 12/07/2024 2:30 PM EDT TH Visit (TeleHealth) [place] [address] Rosemarie Morrow APRN [facility] [place] [address] documented as of this encounter Visit Diagnoses Not on filedocumented in this encounter Care Teams Object Oriented Developer Relationship Specialty Start Date End Date Marcio Devlin DO [address] [place] [address] PCP - General Family Medicine 11/11/17 documented as of this encounter
--- OUTSIDE RECORDS SUMMARY | 2024-10-04 16:07 | XMS_ITS | Encounter Summary ---
Author Organization [facility] Address [facility] [place] [address] Care Team Providers Care Panel Sewer Name Role Phone Marcio Devlin DO Primary Care Provider [phone] Encounter Details Date Type Department Care Team (Late st Contact Info) Description 09/03/2021 Orders [place] [address] Lola Haley, [facility] [address] [place] [place] [address] Social History Tobacco Use Types Packs/Day Years [...] AM EST Hospital Encounter Non[place] [phone] Arrived 11/12/2024 8:00 AM EST Appointment Mammography/[place] [address] Gabe Fong MD [facility] [place] [address] 11/30/2024 2:30 PM EDT Office Visit Rheumatology at [place] [phone] Gabe Fong MD [facility] [place] [address] 12/07/2024 2:30 PM EDT TH Visit (TeleHealth) [place] [phone] Rosemarie Morrow, SKIP [facility] [place] [address] documented as of this encounter Visit Diagnoses Not on filedocumented in this encounter Care Teams Panel Sewer Relationship Specialty Start Date End Date Marcio Devlin DO [address] [place] [address] PCP - General Family Medicine 11/11/17 documented as of this encounter
--- OUTSIDE RECORDS SUMMARY | 2024-10-04 16:07 | XMS_ITS | Encounter Summary ---
Author Organization [facility] Address [facility] [place] [address] Care Team Providers Care Tea Bag Packer Name Role Phone Marcio Devlin DO Primary Care Provider [phone] Encounter Details Date Type Department Care Team (Latest Contact Info) Description 12/13/2021 9:30 AM EDT - 12/13/2021 11:59 PM EDT Hospital Encounter XRay at [address] [place] [address] Gabe Fong MD [facility] [place] [address] Ankylosing spondylitis of cervical region; Neck pain; [...] by mouth daily. SUMAtriptan (IMITREX) 20 mg/actuation [place], Non-Aerosol 1 spray as needed. 11/03/2017 metFORMIN [...] AM EST Hospital Encounter Non[place] [address] Arrived 11/12/2024 8:00 AM EST Appointment Mammography/DXA at [place] [phone] Gabe Fong MD [facility] [place] [address] 11/30/2024 2:30 PM EDT Office [place] [address] Gabe Fong MD [facility] [place] [address] 12/07/2024 2:30 PM EDT TH Visit (TeleHealth) Gastroenterology at [place] [phone] Rosemarie Morrow APRN [facility] [place] [address] documented as of this encounter Procedures Procedure [...] have questions please contact the health director career services that requested your imaging first. ? Electronically signed by: Ricardo Campbell MD, [facility] ([phone]), at 12/13/2021 9:46 AM Narrative 12/13/2021 9:46 [...] who have questions please contactthe health director career services that requested your imaging first. Electronically signed by: Ricardo Campbell MD, [facility]([phone]), at 12/13/2021 9:46 AM Gabe Fong MD IMG DX ORDERABLES documented in this encounter Visit Diagnoses Diagnosis Ankylosing spondylitis of cervical region Ankylosing spondylitis Neck pain Cervicalgia Ulcerative colitis without complications, unspecified location documented in this encounter Care Teams Tea Bag Packer Relationship Specialty Start Date End Date Marcio Devlin DO [address] [place] [address] PCP - General Family Medicine 11/11/17 documented as of this encounter
--- OUTSIDE RECORDS SUMMARY | 2024-10-04 16:07 | XMS_ITS | Encounter Summary ---
Author Organization [facility] [place] [address] Care Team Providers Care Emergency Preparedness Manager Name Role Phone Marcio Devlin DO Primary Care Provider [phone] Reason for Visit * Reason Onset Date Comments Labs Only 08/02/2021 Encounter Details Date Type Department Care Team (Late st Contact Info) Description 08/02/2021 Telephone [place] [address] Alex Rodriguez, RN Labs Only [...] PM EST Call received from Lab @ [facility] advising [id number]-9-CO Qualitative can not be done at [facility] and they donot send out either. They can send out a Quantitative, but will need provider order before they call the patient back tocome back in for more labs. Gabe Fong MD sent to Alex Rodriguez, RN; [facility] [place] Caller: Unspecified (Yesterday, ??3:00 PM) She needs to have it here then. Or at [facility] site I spoke with Kim and she will come here to have test done. documented in this encounter Plan of Treatment Upcoming Encounters Date Type Department Care Team (Late st Contact Info) Description 10/16/2024 10:00 AM EST Hospital Encounter Non-Invasive Cardiology Lab [place] [address] Arrived 11/12/2024 8:00 AM EST Appointment Mammography/DXA at [place] [address] Gabe Fong MD [facility] [place] [address] 11/30/2024 2:30 PM EDT Office Visit Rheumatology at [place] [address] Gabe Fong MD [facility] [place] [address] 12/07/2024 2:30 PM EDT TH Visit (TeleHealth) Gastroenterology at [place] [address] Rosemarie Morrow APRN [facility] [place] [address] documented as of this encounter Visit Diagnoses Not on filedocumented in this encounter Care Teams Emergency Preparedness Manager Relationship Specialty Start Date End Date Marcio Devlin DO [address] [place] [address] PCP - General Family Medicine 11/11/17 documented as of this encounter
--- OUTSIDE RECORDS SUMMARY | 2024-10-04 16:07 | XMS_ITS | Encounter Summary ---
Author Organization [facility] Address [facility] [place] [address] Care Team Providers Care Machine Riveter Name Role Phone Marcio Devlin DO Primary Care Provider [phone] Encounter Details Date Type Department Care Team (Late st Contact Info) Description 02/13/2021 Orders [place] [phone] Dajuan Rachel MD [facility] [place] [address] Social History Tobacco Use Types Packs/Day Years [...] AM EST Hospital Encounter Non-[place] [phone] Arrived 11/12/2024 8:00 AM EST Appointment Mammography/[place] [address] Gabe Fong MD [facility] [place] [address] 11/30/2024 2:30 PM EDT Office Visit Rheumatology at [place] [phone] Gabe Fong MD [facility] [address] 12/07/2024 2:30 PM EDT TH Visit (TeleHealth) Gastroenterology at [place] [phone] Rosemarie Morrow, SKIP [facility] [place] [address] documented as of this encounter Visit Diagnoses Not on filedocumented in this encounter Care Teams Machine Riveter Relationship Specialty Start Date End Date Marcio Devlin DO [address] [place] [address] PCP - General Family Medicine 11/11/17 documented as of this encounter
--- OUTSIDE RECORDS SUMMARY | 2024-10-04 16:07 | XMS_ITS | Encounter Summary ---
Author Organization [facility] [place] [address] Care Team Providers Care Housekeeping Room Inspector Name Role Phone Marcio Devlin DO Primary Care Provider [phone] Reason for Visit * Reason Comments Specialty Pharmacy Review Encounter Details Date Type Department Care Team (Late st Contact Info) Description 05/15/2021 Specialty [place] [phone] Berenice Novak, [facility] Social History Tobacco [...] Novak - 05/15/2021 11:59 PM EDT [facility] [...] AM EST Hospital Encounter Non-Invasive Cardiology Lab [place] [phone] Arrived 11/12/2024 8:00 AM EST Appointment Mammography/[place] [address] Gabe Fong MD [facility] [place] [address] 11/30/2024 2:30 PM EDT Office [place] [address] Gabe Fong MD [facility] [place] [address] 12/07/2024 2:30 PM EDT TH Visit (TeleHealth) Gastroenterology at [place] [address] Rosemarie Morrow, MACHINE OPERATOR ASSISTANT [facility] [place] [address] documented as of this encounter Visit Diagnoses Not on filedocumented in this encounter Care Teams Housekeeping Room Inspector Relationship Specialty Start Date End Date Marcio Devlin DO [address] [place] [address] PCP - General Family Medicine 11/11/17 documented as of this encounter
--- OUTSIDE RECORDS SUMMARY | 2024-10-04 16:07 | XMS_ITS | Encounter Summary ---
Author Organization [place] [address] Care Team Providers Care Final Assembly Worker Name Role Phone Marcio Devlin DO Primary Care Provider [phone] Reason for Visit * Reason Comments Specialty Pharmacy Review Encounter Details Date Type Department Care Team (Late st Contact Info) Description 07/23/2021 Specialty [place] [phone] Adryan Crabtree, [facility] Social History Tobacco Use Types [...] 07/23/2021 11:59 PM EST [facility] [...] AM EST Hospital Encounter Non-Invasive [place] [address] Arrived 11/12/2024 8:00 AM EST Appointment Mammography/[place] [address] Gabe Fong MD [facility] [place] [address] 11/30/2024 2:30 PM EDT Office Visit Rheumatology at [place] [phone] Gabe Fong MD [facility] [place] [address] 12/07/2024 2:30 PM EDT TH Visit (TeleHealth) Gastroenterology at [place] [phone] Rosemarie Morrow, SKIP [facility] [place] [address] documented as of this encounter Visit Diagnoses Not on filedocumented in this encounter Care Teams Final Assembly Worker Relationship Specialty Start Date End Date Marcio Devlin DO [address] [place] [address] PCP - General Family Medicine 11/11/17 documented as of this encounter
--- OUTSIDE RECORDS SUMMARY | 2024-10-04 16:07 | XMS_ITS | Encounter Summary ---
Author Organization Counts Include [address] [address] Care Team Providers Care Cigarette Making Machine Catcher Name Role Phone Marcio Devlin DO Primary Care Provider [phone] Reason for Referral * Consultation (Routine) - Closed Specialty Diagnoses / Procedures Referred By Missy escalera Referred To Contact Orthopaedics Diagnoses Pain in left hip Mass of joint of left hip Gabe Fong MD [facility] [address] [place] [address] [facility] Orthopaedics [address] [place] [phone] Referral ID Status Reason Start Date Expiration Date V isits Requested Visits Authorized [id number] Closed Consult, Test & Treat 11/15/2021 11/15/2022 1 1 Reason for Visit * Reason Comments Follow-up Encounter Details Date Type Department Care Team (Late st Contact Info) Description 11/15/2021 9:00 AM EST Office [place] [address] Gabe Fong MD [facility] [address] [place] [place] [address] Pain in left hip; Ulcerative [...] EST Hospital Encounter Non-Invasive [place] [address] Arrived 11/12/2024 8:00 AM EST Appointment Mammography[place] [address] Gabe Fong MD [facility] [place] [address] 11/30/2024 2:30 PM EDT Office [place] [address] Gabe Fong MD [facility] [place] [address] 12/07/2024 2:30 PM EDT TH Visit (TeleHealth) [place] [address] Rosemarie Morrow APRN [facility] [place] [address] Scheduled Referrals Name Type Priority Associated Diagnoses [...] who have questions please contact the health technical healthcare consultant that requested your imaging first. ? Narrative [...] patients who have questions please contactthe health technical healthcare consultant that requested your imaging first. Gabe Fong [...] unspecified documented in this encounter Care Teams Cigarette Making Machine Catcher Relationship Specialty Start Date End Date Marcio Devlin DO [address] [place] [address] PCP - General Family Medicine 11/11/17 documented as of this encounter
--- OUTSIDE RECORDS SUMMARY | 2024-10-04 16:08 | XMS_ITS | Encounter Summary ---
Author Organization [facility] [place] [place] [address] Care Team Providers Care Hand Router Operator Name Role Phone Marcio Devlin DO Primary Care Provider [phone] Encounter Details Date Type Department Care Team (Late st Contact Info) Description 10/01/2019 2:00 PM EST Office [place] [phone] Gabe Fong MD [facility] [place] [address] Inflammatory arthropathy; Ulcerative colitis without complications, unspecified [...] Follow-up Note PCP: Marcio Devlin, DO [address] [place] [address] Rheumatological History: 1. UC associated Ankylosing Spondylitis [...] -Continue current meds: 1) Humira 40 mg [id number] 2) SZS 1000 mg BID -Check labs [...] EST Hospital Encounter Non-Invasive [place] [address] Arrived 11/12/2024 8:00 AM EST Appointment Mammography/[place] [address] Gabe Fong MD [facility] [place] [address] 11/30/2024 2:30 PM EDT Office [place] [address] Gabe Fong MD [facility] [place] [address] 12/07/2024 2:30 PM EDT TH Visit (TeleHealth) [place] [address] Rosemarie Morrow APRN [facility] [place] [address] documented as of this encounter Visit Diagnoses Diagnosis Inflammatory arthropathy Arthropathy, unspecified, site unspecified Ulcerative colitis without complications, unspecified location Medication monitoring encounter Encounter for therapeutic drug monitoring High risk medication use Encounter for long-term (current) use of other medications documented in this encounter Care Teams Hand Router Operator Relationship Specialty Start Date End Date Marcio Devlin DO [address] [place] [address] PCP - General Family Medicine 11/11/17 documented as of this encounter
--- OUTSIDE RECORDS SUMMARY | 2024-10-04 16:08 | XMS_ITS | Encounter Summary ---
Author Organization [facility] [place] [address] Care Team Providers Care County Health Officer Name Role Phone Marcio Devlin DO Primary Care Provider [phone] Encounter Details Date Type Department Care Team (Late st Contact Info) Description 06/29/2020 4:00 PM EDT Office [place] [phone] Clau Cruz MD [facility] [place] [address] MÉNDEZ (nonalcoholic steatohepatitis) Social History Tobacco Use [...] and Hepatology Follow Up Note Patient: Kim Funse : 1960 Provider: Clau Cruz MD Problem List: 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 She was previously seen by Dr. Chan, with the last visit in 2010. ?? Mild increase of alk phos (highest report level was 144 in 02/2006). Dr. Chan started on ursodiol [id number]. No prior liver imaging. No evidence of PSC on liver biopsy. ? Problem List: 1. MÉNDZE (stage 2 in 03/24) ?a. Labs (03/24) [...] mouth daily. ??? SUMAtriptan (IMITREX) 20 mg/actuation [place], Non-Aerosol 1 spray as needed. ??? ferrous [...] Cruz MD Section of Gastroenterology & Hepatology [address] [place] [address] 17 minutes of this 30 minute visit was spent in discussion. Cc: Marcio Devlin DO documented in this encounter Procedure Notes * Clau Cruz MD - 06/29/2020 4:00 PM EDTAssociated Order(s): FIBROSCAN Procedure(s): FIBROSCAN Pre-Procedure Diagnose(s): MÉNDEZ (nonalcoholic steatohepatitis) [facility] Liver Fibrosis Assessment Report Indication: MÉNDEZ Performed by: Clau Cruz MD Procedure: Vibration Controlled Transient Elastography (VCTE) or Fibroscan Gardner Protocol: Patient's identity, procedure and site were [...] AM EST Hospital Encounter Non-Invasive [place] [address] Arrived 11/12/2024 8:00 AM EST Appointment Mammography/[place] [address] Gabe Fong MD [facility] [place] [address] 11/30/2024 2:30 PM EDT Office [place] [address] Gabe Fong MD [facility] [place] [address] 12/07/2024 2:30 PM EDT TH Visit (TeleHealth) [place] [address] Rosemarie Morrow APRN [facility] [place] [address] documented as of this encounter Procedures Procedure Name Priority Date/Time Associated Diagnosis Comments [id number] Routine 06/29/2020 4:00 PM EDT MÉNDEZ (nonalcoholic steatohepatitis) documented in this encounter Results * [id number] (06/29/2020 4:00 PM EDT) Narrative Clau Cruz MD - 06/29/2020 4:00 PM EDT Clau Cruz MD ? 06/29/2020 ??5:12 PM [facility] Liver Fibrosis Assessment Report Indication: ?? MÉNDEZ Performed by: ??Clau Cruz MD Procedure: Vibration Controlled Transient Elastography (VCTE) or Fibroscan [place] Protocol: Patient's identity, procedure and site were [...] disease documented in this encounter Care Teams County Health Officer Relationship Specialty Start Date End Date Marcio Devlin DO [address] [place] [address] PCP - General Family Medicine 11/11/17 documented as of this encounter
--- OUTSIDE RECORDS SUMMARY | 2024-10-04 16:08 | XMS_ITS | Encounter Summary ---
Author Organization [facility] [place] [address] Care Team Providers Care Authorization Specialist Name Role Phone Marcio Devlin DO Primary Care Provider [phone] Encounter Details Date Type Department Care Team (Late st Contact Info) Description 04/27/2020 Tele[place] [phone] Radha Arroyo, [facility] Social History Tobacco Use Types Packs/Day [...] Notes * Telephone Encounter - Radha Enamorado, [facility] - 04/27/2020 1:59 PM EDT GAP Supervisor Maintenance Pre-Telemedicine Phone Note [] Patient not reached [x] Patient reached and the following information was reviewed/obtained per protocol: [x] Confirmed patient name and date of [x] Confirmed telemedicine maria c (Vidyo and Virtual Visit) is downloaded and functioning [x] Confirmed location of patient - TeleVisit is taking place in [x] [place] [] [place] [] If not on [facility], working on signing up for [facility] [x] Confirmed has completed any pre-visit questionnaires [] If has not received required pre-visit questionnaires, send via [facility] [x] Reviewed patient medications ??? adalimumab 40 mg/0.4 mL Pen Injector Kit ??? fexofenadine (DARRYN) 180 mg Tablet ??? PROAIR HFA 90 mcg/actuation HFA Aerosol Inhaler ??? metoprolol succinate (TOPROL-XL) 100 mg Tablet Sustained Release 24 hr ??? topiramate 50 mg capsule,sprinkle,ER 24hr ??? aspirin 81 mg Tablet, Delayed Release (E.C.) ??? SUMAtriptan (IMITREX) 20 mg/actuation [place], Non-Aerosol ??? ferrous sulfate (IRON) 325 mg [...] AM EST Hospital Encounter Non-Invasive Cardiology [place] [address] Arrived 11/12/2024 8:00 AM EST Appointment Mammography/DXA at [address] Gabe Fong MD [facility] [place] [address] 11/30/2024 2:30 PM EDT Office Visit Rheumatology at [place] [phone] Gabe Fong MD [facility] [place] [address] 12/07/2024 2:30 PM EDT TH Visit (TeleHealth) Gastroenterology at [place] [phone] Rosemarie Morrow, SKIP [facility] [place] [address] documented as of this encounter Visit Diagnoses Not on filedocumented in this encounter Care Teams Authorization Specialist Relationship Specialty Start Date End Date Marcio Devlin DO [address] [place] [address] PCP - General Family Medicine 11/11/17 documented as of this encounter
--- OUTSIDE RECORDS SUMMARY | 2024-10-04 16:08 | XMS_ITS | Encounter Summary ---
Author Organization [facility] [place] [address] Care Team Providers Care Vascular Manager Name Role Phone Marcio Devlin DO Primary Care Provider [phone] Reason for Visit * Consultation (Urgent) - Specialty Diagnoses / Procedures Referred By Missy escalera Referred To Contact Gastroenterology Diagnoses ibd Procedures consult Froilan Sahni MD [facility] [place] [address] [facility] [address] [place] [address] Referral ID Status Reason Start Date Expiration Date V isits Requested Visits Authorized [id number] 11/09/2019 11/08/2020 1 1 Encounter Details Date Type Department Care Team (Late st Contact Info) Description 11/15/2019 1:00 PM EST Office [place] [address] Rosemarie Morrow, SKIP [facility] [place] [address] Ulcerative pancolitis without complication Social [...] this encounter Progress Notes * Rosemarie Morrow, [employer] - 11/15/2019 1:00 PM EST GASTROENTEROLOGY, INFLAMMATORY [...] ?? Colonoscopy 09/19/08 (Dr. Shady Luz at [facility]). Areas of skip inflammation in transverse, descending, & rectosigmoid. Upon retroflexion, a rectal mucosal tear requiring subsequent admission for antibiotics. Biopsies: normal ileum, non- specific eosinophilic infiltration of the cecum, chronic inactive colitis in the descending, rectum, sigmoid, and rectum. The transverse colon revealed moderate to severe chronic, active colitis. ?? Last colonoscopy 01/03/2011 (Dr. Yaquelin Chan) - evwj-jo-[id number] inflammation rectum to cecum withan inflammatory sigmoid [...] WITH BX performed by YAQUELIN CHAN at [facility] ENDOSCOPY ??? PRO COLONOSCOPY, BIOPSY N/A 03/04/2017 COLONOSCOPY FLEXIBLE, WITH BX (WRVU 3.66) performed by Raúl Austin MD at [facility] ENDOSCOPY ??? PRO COLONOSCOPY, BIOPSY N/A 11/09/2019 COLONOSCOPY FLEXIBLE, WITH BX (WRVU 3.66) performed by Froilan Sahni MD at [facility] ENDOSCOPY ??? PRO COLONOSCOPY, DIAGNOSTIC N/A 11/09/2019 COLONOSCOPY, DIAGNOSTIC performed by Froilan Sahni MD at [facility] ENDOSCOPY ??? PRO COLONOSCOPY, REMV LESN, SNARE 01/02/2011 COLONOSCOPY, POLYPECTOMY, REMOVAL LESION BY SNARE performed by YAQUELIN CHAN at [facility] ENDOSCOPY ??? PRO COLONOSCOPY, REMV LESN, SNARE N/A 03/04/2017 COLONOSCOPY, POLYPECTOMY, REMOVAL LESION BY SNARE (WRVU 4.67) performed by Raúl Austin MD at [facility] ENDOSCOPY ??? PRO COMBINED ANT/POST COLPORRHAPHY N/A 03/10/2018 COLPORRHAPHY ANTERIOR-POSTERIOR; INC CYSTOURETHROSCOPY (WRVU 14.44) performed by Liang Fong MD at [facility] MAIN OR ??? PRO REVAGINAL PROLAPSE, UTEROSACRAL N/A 03/10/2018 COLPOPEXY, VAGINAL, INTRAPERITONEAL APPROACH (WRVU 11.66) performed by Liang Fong MD at [facility] OR ??? PRO SLING OPER STRES INCONTINENCE N/A 03/10/2018 URETHRAL SUSPENSION, SLING\FASCIA OR SYNTHETIC (WRVU 12.13) performed by Liang Fong MD at [facility] MAIN OR ??? PRO VAG HYST, RMV TUBE/OVARY N/A 03/10/2018 HYSTERECTOMY, VAGINAL, REMOVAL TUBE(S) & OR OVARY(S) (WRVU 15.94) performed by Liang Fong MD at [facility] MAIN OR ??? SALPINGECTOMY ??? XR FLUORO INJECTION DRAINAGE JOINT LG RIGHT Right 03/09/2019 XR Fluoro Guided Joint Injection Large Right 03/09/2019 [facility] RAD XRAY Social History Socioeconomic History [...] file Gets together: Not on file Attends [employer] service: Not on file Active member of [...] Result status: Final Resulting lab: [facility] Value: [facility] Endoscopy Procedure Date: 11/09/2019 9:34 AM ? Patient Name: Kim Perez ? Date of : 1960 ? Age: 59 ? Order #: [id number] ? Instrument Name: [id number] ? Procedure: ? Colonoscopy Indications: ? High [...] AM EST Hospital Encounter Non-[place] [address] Arrived 11/12/2024 8:00 AM EST Appointment Mammography/[place] [phone] Gabe Fong MD [facility] [place] [address] 11/30/2024 2:30 PM EDT Office Visit Rheumatology at [place] [phone] Gabe Fong MD [facility] [place] [address] 12/07/2024 2:30 PM EDT TH Visit (TeleHealth) [place] [phone] Rosemarie Morrow APRN [facility] [place] [address] documented as of this encounter Visit Diagnoses Diagnosis Ulcerative pancolitis without complication documented in this encounter Care Teams Vascular Manager Relationship Specialty Start Date End Date Marcio Devlin DO [address] [place] [address] PCP - General Family Medicine 11/11/17 documented as of this encounter
--- OUTSIDE RECORDS SUMMARY | 2024-10-04 16:08 | XMS_ITS | Encounter Summary ---
Author Organization [facility] Address [facility] [place] [address] Care Team Providers Care Automobile Mechanic Supervisor Name Role Phone Marcio Devlin DO Primary Care Provider [phone] Encounter Details Date Type Department Care Team (Late st Contact Info) Description 11/09/2019 Orders [place] [phone] Froilan Sahni MD [facility] [place] [place] [address] Ulcerative pancolitis without complication; Adalimumab (Humira) long-term [...] AM EST Hospital Encounter Non-Invasive [place] [address] Arrived 11/12/2024 8:00 AM EST Appointment Mammography/DXA at [place] [phone] Gabe Fong MD [facility] [place] [address] 11/30/2024 2:30 PM EDT Office Visit Rheumatology at [place] [phone] Gabe Fong MD [facility] [place] [address] 12/07/2024 2:30 PM EDT TH Visit (TeleHealth) [place] [phone] Rosemarie Morrow APRN [facility] [place] [address] documented as of this encounter Results * Adalimumab Quant with Reflex to Antibody (11/09/2019 1:19 PM EST) [facility] Adalimumab Level (JANUARY) 6.0 mcg/mL [facility] Comment: For clinical assessment of response to therapy, adalimumab should be measured at trough. When adalimumab trough concentrations are greater than 5.0 mcg/mL, clinically relevant ceffqzhufp-ib-npgnxmtooo are unlikely and reflex testing will not be performed. REFERENCE VALUE Limit of Quantitation = 0.8 mcg/mL ADDITIONAL INFORMATION This test was developed and its performance characteristics determined by [facility] in a manner consistent with CLIA requirements. This test has not been cleared or approved by the U.S. Food and Drug Administration. Test Performed by: [facility] [address] [place] [address] Food Beverage Attendant: Oc Lorenzo M.D. Ph.D.; IA# [id number] Blood specimen (specimen) 11/09/2019 1:19 PM EST 11/10/2019 8:27 AM EST Narrative Resulting Agency Comment Spec In Lab Froilan Sahni MD LAB SEND OUT ORDE RABLES Performing Organization Address City/[facility]/ZIP Co de Phone Number [facility] [place] [address] * Hepatitis B Surface Antigen (11/09/2019 1:19 PM EST) Hepatitis B Surface Antigen Negative Negative [facility] Blood specimen (specimen) 11/09/2019 1:19 PM EST 11/09/2019 1:30 PM EST Narrative Resulting Agency Comment Spec In Lab Froilan Sahni MD CHEMISTRY ORDERAB LES Performing Organization Address [facility] Co de Phone Number [facility] [place] [address] * Hepatitis B Surface Antibody (11/09/2019 1:19 PM EST) Hepatitis B Surface Antibody, Quantitative 61.4 IU/L [facility] Comment: HepB Surface Ab Quant: Unvaccinated: < 8.5 IU/L Vaccinated: > 11.5 IU/L Hepatitis B Surface Antibody Positive [facility] Comment: Patient is considered to be immune to HBV infection. Expected Results: Vaccinated: Positive Unvaccinated: Negative Blood specimen (specimen) 11/09/2019 1:19 PM EST 11/09/2019 1:30 PM EST Narrative Resulting Agency Comment Spec In Lab Froilan Sahni MD CHEMISTRY ORDERAB LES Performing Organization Address [facility] Co de Phone Number [facility] [place] [address] * Hepatitis B Core Antibody, Total (11/09/2019 1:19 PM EST) Hepatitis B Core Antibody Negative Negative [facility] Blood specimen (specimen) 11/09/2019 1:19 PM EST 11/09/2019 1:30 PM EST Narrative Resulting Agency Comment Spec In Lab Froilan Sahni MD CHEMISTRY ORDERAB LES Performing Organization Address City/State/[facility] Co de Phone Number [facility] [place] [address] * QuantiFERON-TB Gold (11/09/2019 1:19 PM EST) Quantiferon Nil 0.040 IU/mL [facility] QFT TB Ag1-Nil 0.010 IU/mL [facility] QFT TB Ag2-Nil 0.100 IU/mL [facility] Quantiferon Mitogen-Nil >10.000 IU/mL [facility] Quantiferon-TB Gold Negative Negative [facility] Quantiferon Tb Interp M. tuberculosis [...] affect immune function, or other immunological factors. [facility] Comment: The performance of the [...] Lab Froilan Sahni MD CHEMISTRY ORDERAB LES [facility] [place] [address] * Comprehensive metabolic panel (non-fasting) (11/09/2019 1:19 PM EST) Glucose 124 65 - 199 mg/dL [facility] Comment:Diabetes: >=200 mg/d L plus symptoms Blood Urea Nitrogen 8 8 - 18 mg/dL [facility] Creatinine 0.80 0.70 - 1.20 mg/dL [facility] Sodium 145 135 - 145 mmol/L [facility] Potassium 3.7 3.5 - 5.0 mmol/L [facility] Comment: Please note: ??Patients with WBC >100,000 may have falsely elevated Potassium levels. ??For accurate Potassium quantification in these patients send serum separator tube (gold top) for subsequent determinations. ??Contact the Clinical Chemistry Laboratory if there are any questions. Chloride 105 98 - 107 mmol/L [facility] Carbon Dioxide 27 22 - 31 mmol/L [facility] Anion Gap 13 5 - 15 mmol/L [facility] Calcium 9.5 8.5 - 10.5 mg/dL [facility] Protein, Total 7.9 6.1 - 8.0 gm/dL [facility] Albumin 4.0 3.2 - 5.2 gm/dL [facility] Aspartate Aminotransferase 19 0 - 30 unit/L [facility] Alanine Aminotransferase 12 0 - 30 unit/L [facility] Alkaline Phosphatase 82 35 - 105 unit/L [facility] Bilirubin, Total 0.4 0.2 - 1.3 mg/dL [facility] Est Glomerular Filtration Rate 81 >=60 mL/min/1. 73 m?? [facility] Comment: The eGFR was calculated using the CKD-EPI equation. As with all creatinine based estimates of kidney function, eGFR values calculated with the CKD-EPI equation are not accurate in patients with acute kidney failure, extremes of body mass or the acutely ill. [email or web address]/[facility]ANDnkf eGFR 94 >=60 mL/min/1. 73 m?? [facility] Comment: The eGFR was calculated using the CKD-EPI equation. As with all creatinine based estimates of kidney function, eGFR values calculated with the CKD-EPI equation are not accurate in patients with acute kidney failure, extremes of body mass or the acutely ill. [email or web address]/[facility] Blood specimen (specimen) 11/09/2019 1:19 PM EST 11/09/2019 1:30 PM EST Narrative Resulting Agency Comment Spec In Lab Froilan Sahni MD CHEMISTRY ORDERAB LES Performing Organization Address City/[facility] Co de Phone Number [facility] [place] [address] * (ABNORMAL) CRP, acute inflammation (11/09/2019 1:19 PM EST) C-Reactive Protein 5.4(H) <=4.9 mg/L [facility] Blood specimen (specimen) 11/09/2019 1:19 PM EST 11/09/2019 1:30 PM EST Narrative Resulting Agency Comment Spec In Lab Froilan Sahni MD CHEMISTRY ORDERAB LES Performing Organization Address City/[facility] [place] [address] documented in this encounter Visit Diagnoses Diagnosis Ulcerative pancolitis without complication Adalimumab (Humira) long-term use Encounter for long-term (current) use of other medications documented in this encounter Care Teams Automobile Mechanic Supervisor Relationship Specialty Start Date End Date Marcio Devlin DO [address] [place] [address] PCP - General Family Medicine 11/11/17 documented as of this encounter
--- OUTSIDE RECORDS SUMMARY | 2024-10-04 16:08 | XMS_ITS | Encounter Summary ---
Author Organization [facility] [place] [address] Care Team Providers Care Ware Carrier Name Role Phone Marcio Devlin DO Primary Care Provider [phone] Encounter Details Date Type Department Care Team (Late st Contact Info) Description 12/07/2020 Telephone [place] [phone] Carmel[facility] Michel, [facility] Social History Tobacco Use Types Packs/Day [...] - 12/07/2020 4:19 PM EDT Kim Funes [id number] Diagnosis/Indication: COLO ? 1. Have you ever [...] EST Hospital Encounter Non-Invasive [place] [address] Arrived 11/12/2024 8:00 AM EST Appointment Mammography/[place] [address] Gabe Fong MD [facility] [address] [place] [address] 11/30/2024 2:30 PM EDT Office [place] [address] Gabe Fong MD [facility] [address] [place] [address] 12/07/2024 2:30 PM EDT TH Visit (TeleHealth) [place] [address] Rosemarie Morrow, SKIP [facility] [place] [address] documented as of this encounter Visit Diagnoses Not on filedocumented in this encounter Care Teams Ware Carrier Relationship Specialty Start Date End Date Marcio Devlin DO [address] [place] [address] PCP - General Family Medicine 11/11/17 documented as of this encounter
--- OUTSIDE RECORDS SUMMARY | 2024-10-04 16:08 | XMS_ITS | Encounter Summary ---
Author Organization [facility] [place] [address] Care Team Providers Care Gut Snatcher Name Role Phone Marcio Devlin DO Primary Care Provider [phone] Reason for Visit * Reason Onset Date Comments Reminder Appointment 03/27/2020 Encounter Details Date Type Department Care Team (Late st Contact Info) Description 03/27/2020 Telephone [place] [phone] Elisha Hall CMA Reminder Appointment Social History Tobacco [...] AM EST Hospital Encounter Non-Invasive [place] [address] Arrived 11/12/2024 8:00 AM EST Appointment Mammography/[place] [address] Gabe Fogn MD [facility] [place] [address] 11/30/2024 2:30 PM EDT Office Visit Rheumatology at [place] [phone] Gabe Fong MD [facility] [place] [address] 12/07/2024 2:30 PM EDT TH Visit (TeleHealth) Gastroenterology at [place] [phone] Rosemarie Morrow, SKIP [facility] [place] [place] [address] documented as of this encounter Visit Diagnoses Not on filedocumented in this encounter Care Teams Gut Snatcher Relationship Specialty Start Date End Date Marcio Devlin DO [address] [place] [address] PCP - General Family Medicine 11/11/17 documented as of this encounter
--- OUTSIDE RECORDS SUMMARY | 2024-10-04 16:08 | XMS_ITS | Encounter Summary ---
Author Organization [facility] [place] [address] Care Team Providers Care Fringe Knotter Name Role Phone Marcio Devlin DO Primary Care Provider Encounter Details Date Type Department Care Team (Late st Contact Info) Description 11/09/2019 9:29 AM EST - 11/09/2019 1:03 PM EST Hospital Encounter [place] [phone] Froilan Sahni MD [facility] [place] [address] Discharge Disposition: Home Social History Tobacco Use [...] occurs, please contact your Doctor. Please call [phone] before 8pm Mon-Fri with problems, questions or concerns. If you call after 8pm or on weekends, call the Hospital at [phone] and ask to speak to the Fresh Food Manager senior talent acquisition specialist and the tandem operator will contact that person for you. When should you call for help? Call [phone] anytime you think you may need emergency [...] After Visit Summary and more online at [email or web address] If you would like to provide [...] cost to you. Content Version: 12.2 ?? 4017-0128 [facility]. Care instructions adapted under license by [facility]. If you have questions about a medical condition or this instruction, always ask your healthcare professional. [facility] disclaims any warranty or liability for [...] by mouth daily. SUMAtriptan (IMITREX) 20 mg/actuation [place], Non-Aerosol 1 spray as needed. 11/03/2017 metFORMIN [...] complication. Informed Consent signed by patient (or shared services representative). documented in this encounter Plan of Treatment Upcoming Encounters Date Type Department Care Team (Late st Contact Info) Description 10/16/2024 10:00 AM EST Hospital Encounter Non-Invasive [place] [address] Arrived 11/12/2024 8:00 AM EST Appointment Mammography/[place] [address] Gabe Fong MD [facility] [place] [address] 11/30/2024 2:30 PM EDT Office [place] [address] Gabe Fong MD [facility] [place] [address] 12/07/2024 2:30 PM EDT TH Visit (TeleHealth) [place] [address] Rosemarie Morrow APRN [facility] [place] [address] documented as of this encounter Procedures Procedure Name Priority Date/Time Associated Diagnosis Comments SPECIMEN TO PATHOLOGY Routine 11/09/2019 11:33 AM EST SPECIMEN TO PATHOLOGY Routine 11/09/2019 11:33 AM EST SPECIMEN TO PATHOLOGY Routine 11/09/2019 11:33 AM EST SPECIMEN TO PATHOLOGY Routine 11/09/2019 11:33 AM EST SPECIMEN TO PATHOLOGY Routine 11/09/2019 11:33 AM EST SURGICAL PATHOLOGY REPORT Routine 11/09/2019 11:10 AM EST Colonoscopy, Biopsy ([id number]) 11/09/2019 10:48 AM EST hx 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 ??Separate Pathology report to follow Froilan Sahni MD PATHOLOGY/CYTOLOG Y ORDERABLES Performing Organization Address City/[facility]/[place] [address] * Specimen to Pathology (11/09/2019 11:33 AM EST) AP Specimen 11/09/2019 11:3 3 AM EST 11/09/2019 11:33 AM EST Narrative [facility] - 11/09/2019 11:33 AM EST Specimen requisition ordered. ??Separate Pathology report to follow Froilan Sahni MD PATHOLOGY/CYTOLOG Y ORDERABLES Performing Organization Address City/[facility]/[place] [address] * Specimen to Pathology (11/09/2019 11:33 AM EST) AP Specimen 11/09/2019 11:3 3 AM EST 11/09/2019 11:33 AM EST Narrative [facility] - 11/09/2019 11:33 AM EST Specimen requisition ordered. ??Separate Pathology report to follow Froilan Sahni MD PATHOLOGY/CYTOLOG Y ORDERAB[place] [address] * Specimen to Pathology (11/09/2019 11:33 AM EST) AP Specimen 11/09/2019 11:3 3 AM EST 11/09/2019 11:33 AM EST Narrative [facility] - 11/09/2019 11:33 AM EST Specimen requisition ordered. ??Separate Pathology report to follow Froilan Sahni MD PATHOLOGY/CYTOLOG Y ORDERABLES Performing Organization Address [facility] [place] [address] * Specimen to Pathology (11/09/2019 11:33 AM EST) AP Specimen 11/09/2019 11:3 3 AM EST 11/09/2019 11:33 AM EST Narrative [facility] - 11/09/2019 11:33 AM EST Specimen requisition ordered. ??Separate Pathology report to follow Froilan Sahni MD PATHOLOGY/CYTOLOG Y ORDERABLES Performing Organization Address [facility] [place] [address] * Surgical Pathology Report (11/09/2019 11:10 AM EST) Final Diagnosis [id number] ? Location: 4T; EA13; A The signing [...] Brown MD Verified: ??11/10/2019 ?Pathologist Performed at: ??-[facility] Dept. of Pathology, [place], [place] CLINICAL INFORMATION Specimen Submitted: A - [...] labeled E1. ??elisa 11/10/2019 4:44 PM EST [facility] GI Biopsy 11/09/2019 11:1 0 [...] MD PATHOLOGY/CYTOLOG Y ORDERABLES Performing Organization Address [facility]/State/ZIP Co de Phone Number [facility] [place] [address] * COLONOSCOPY (11/09/2019 9:34 AM EST) COLONOSCOPY [facility] Endoscopy ___ Procedure Date: 11/09/2019 9:34 AM ? Patient Name: Kim Funes ? N: [id number] ? Date of : 1960 ? Age: 59 ? Order #: [id number] ? Instrument Name: [id number] ? ___ Procedure: ? Colonoscopy Indications: ? [...] 100 mL/hr, Intravenous, CONTINUOUS, Starting on e 11/09/19 at 1000, Until 11/09/19 at 1246, [...] RN) documented in this encounter Care Teams Fringe Knotter Relationship Specialty Start Date End Date Marcio Devlin DO [address] [place] [address] PCP - General Family Medicine 11/11/17 documented as of this encounter
--- OUTSIDE RECORDS SUMMARY | 2024-10-04 16:08 | XMS_ITS | Encounter Summary ---
Author Organization [facility] [place] [address] Care Team Providers Care Gum Rolling Machine Operator Name Role Phone Marcio Devlin DO Primary Care Provider [phone] Reason for Visit * Reason Comments Medication Refill Encounter Details Date Type Department Care Team (Late st Contact Info) Description 10/17/2020 [place] [address] Dajuan Rachel MD [facility] [place] [address] Ulcerative pancolitis without complication Social History Tobacco [...] AM EST Hospital Encounter Non-Invasive [place] [address] Arrived 11/12/2024 8:00 AM EST Appointment Mammography/DXA at [place] [phone] Gabe Fong MD [facility] [place] [address] 11/30/2024 2:30 PM EDT Office Visit Rheumatology at [place] [phone] Gabe Fong MD [facility] [place] [address] 12/07/2024 2:30 PM EDT TH Visit (TeleHealth) [place] [address] Rosemarie Morrow APRN [facility] [place] [address] documented as of this encounter Visit Diagnoses Diagnosis Ulcerative pancolitis without complication documented in this encounter Care Teams Gum Rolling Machine Operator Relationship Specialty Start Date End Date Marcio Devlin DO [address] [place] [address] PCP - General Family Medicine 11/11/17 documented as of this encounter
--- OUTSIDE RECORDS SUMMARY | 2024-10-04 16:08 | XMS_ITS | Encounter Summary ---
Author Organization [facility] [place] [address] Care Team Providers Care Candle Pourer Name Role Phone Marcio Devlin DO Primary Care Provider [phone] Reason for Visit * Auth/Cert Specialty Diagnoses / Procedures Referred By Contac t Referred To Contact Diagnoses Ulcerative colitis survey UC Procedures PRO COLONOSCOPY, DIAGNOSTIC PRO COLONOSCOPY, BIOPSY PRO COLONOSCOPY, REMV LESN, SNARE COLONOSCOPY, DIAGNOSTIC Referral ID Status Reason Start Date Expiration Date Visits Re quested Visits Authorized [id number] 1 1 Encounter Details Date Type Department Care Team (Late st Contact Info) Description 12/19/2020 1:04 PM EDT - 12/19/2020 1:49 PM EDT Surgery [place] [address] Dajuan Rachel MD [facility] [place] [address] COLONOSCOPY FLEXIBLE, WITH BX (WRVU 3.56) Social [...] occurs, please contact your Doctor. Please call [phone] before 8pm Mon-Fri with problems, questions or concerns. If you call after 8pm or on weekends, call the Hospital at [phone] and ask to speak to the Fine Patcher contract implementation analyst and the warp knit operator will contact that person for you. When should you call for help? Call [phone] anytime you think you may need emergency [...] Where can you learn more? [facility] View your After Visit Summary and more online at [email or web address] If you would like to provide feedback about your hospital experience, please call the Office of Patient and Family Relations at . If you have received this After Visit Summary in error, please immediately return it in person to the department, or notify the [facility] Privacy Office by calling toll free at between the hours of 8AM and 5PM to arrange for our retrieval of the documents at no cost to you. Content Version: 12.2 ?? 1254-8770 [employer]. Care instructions adapted under license by [facility]. If you have questions about a medical condition or this instruction, always ask your healthcare professional. [employer] disclaims any warranty or liability for your [...] by mouth daily. SUMAtriptan (IMITREX) 20 mg/actuation [place], Non-Aerosol 1 spray as needed. 11/03/2017 metFORMIN [...] AM EST Hospital Encounter Non-[place] [address] Arrived 11/12/2024 8:00 AM EST Appointment Mammography/[place] [address] Gabe Fong MD [facility] [place] [address] 11/30/2024 2:30 PM EDT Office Visit Rheumatology [place] [address] Gabe Fong MD [facility] [place] [address] 12/07/2024 2:30 PM EDT TH Visit (TeleHealth) [place] [address] Rosemarie Morrow APRN [facility] [place] [address] documented as of this encounter Procedures Procedure [...] Routine 12/19/2020 12:53 PM EDT Colonoscopy, Biopsy ([id number]) 12/19/2020 12:34 PM EDT survey UC COLONOSCOPY Routine 12/19/2020 12:03 PM EDT documented in this encounter Results * Specimen to Pathology (12/19/2020 1:20 PM EDT) AP Specimen 12/19/2020 1:20 PM EDT 12/19/2020 1:21 PM EDT Narrative [facility] - 12/19/2020 1:21 PM EDT Specimen requisition ordered. ??Separate Pathology report to follow L Jose Rachel MD PATHOLOGY/CYTOLOGY O IRMA Performing Organization Address [facility] [place] [address] * Specimen to Pathology (12/19/2020 1:20 PM EDT) AP Specimen 12/19/2020 1:20 PM EDT 12/19/2020 1:21 PM EDT Narrative [facility] - 12/19/2020 1:21 PM EDT Specimen requisition ordered. ??Separate Pathology report to follow L Jose Rachel MD PATHOLOGY/CYTOLOGY O IRMA Performing Organization Address [facility] [place] [address] * Specimen to Pathology (12/19/2020 1:20 PM EDT) AP Specimen 12/19/2020 1:20 PM EDT 12/19/2020 1:21 PM EDT Narrative [facility] - 12/19/2020 1:21 PM EDT Specimen requisition ordered. ??Separate Pathology report to follow L Jose Rachel MD PATHOLOGY/[place] [address] * Specimen to Pathology (12/19/2020 1:20 PM EDT) AP Specimen 12/19/2020 1:20 PM EDT 12/19/2020 1:21 PM EDT Narrative [facility] - 12/19/2020 1:21 PM EDT Specimen requisition ordered. ??Separate Pathology report to follow L Jose Rachel MD PATHOLOGY/[place] [address] * Specimen to Pathology (12/19/2020 1:20 PM EDT) AP Specimen 12/19/2020 1:20 PM EDT 12/19/2020 1:21 PM EDT Narrative [facility] - 12/19/2020 1:21 PM EDT Specimen requisition ordered. ??Separate Pathology report to follow L Jose Rachel MD PATHOLOGY/CYTOLOGY O IRMA Performing Organization Address City/[facility]/[place] [address] * Specimen to Pathology (12/19/2020 1:20 PM EDT) AP Specimen 12/19/2020 1:20 PM EDT 12/19/2020 1:20 PM EDT Narrative [facility] - 12/19/2020 1:20 PM EDT Specimen requisition ordered. ??Separate Pathology report to follow L Jose Rachel MD PATHOLOGY/CYTOLOGY O IRMA Performing Organization Address City/[facility]/[place] [address] * Specimen to Pathology (12/19/2020 1:20 PM EDT) AP Specimen 12/19/2020 1:20 PM EDT 12/19/2020 1:20 PM EDT Narrative [facility] - 12/19/2020 1:20 PM EDT Specimen requisition ordered. ??Separate Pathology report to follow L Jose Rachel MD PATHOLOGY/CYTOLOGY O RDERADARLEEN [facility] [place] [address] * Surgical Pathology Report (12/19/2020 12:53 PM EDT) Final Diagnosis [id number] ? Location: 4T; EA07; A The signing [...] MD Verified: ??12/26/2020 15:38 ??Pathologist Performed at: ??-[facility] Dept. of Pathology, [place], [place] ADDITIONAL STUDIES Immunohistochemistry Studies: Formalin-fixed, paraffin-embedded [...] 3:38 PM EDT [facility] GI Biopsy 12/19/2020 12:5 3 [...] L Jose Rachel MD PATHOLOGY/CYTOLOGY O RDERABLES [facility] [place] [address] * COLONOSCOPY (12/19/2020 12:03 PM EDT) COLONOSCOPY [facility] Endoscopy Procedure Date: 12/19/2020 12:03 PM ? Patient Name: Kim Funes ? Date of : 1960 ? Age: 60 ? Order #: [id number] ? Instrument Name: [id number] ? Procedure: ? Colonoscopy Patient Profile: ? This is a 60 year old female. This ? patient has ulcerative pancolitis, is ? taking adalimumab and sulfasalazine ? and is experiencing mild symptoms. Providers: ? Freddy Rachel MD, Sandoval Helton, ? FRANCESCA, Codi Gifford Referring MD: ? Medicines: ? Midazolam mg [...] preparation was evaluated using ? the BBPS (Humphreys Bowel Preparation ? Scale) with scores of: [...] involvement of the left colon ? and dnuh-jv-fxtiysne involvement of ? the transverse and right [...] Starting on e 12/19/20 at 1239, Until Tu12/19/20 at 1623, Intra-Operative (Intra-Procedure), Routine Given 12/19/2020 12:42 PM EDT 1 mg Given 12/19/2020 12:39 PM EDT 2 mg documented in this encounter Active and Recently Administered Medications Times are shown in EDT. Continuous Medication Order 12/17/2020 12/18/2020 12/19/2020 lactated ringers infusion (CANCELED) 100 mL/hr, Intravenous, CONTINUOUS, Starting on Fri12/19/20 at 1230, Until e 12/19/20 at 1342, Endoscopy (Day of Procedure) [...] RN) documented in this encounter Care Teams Candle Pourer Relationship Specialty Start Date End Date Marcio Devlin DO [address] [place] [address] PCP - General Family Medicine 11/11/17 documented as of this encounter
--- OUTSIDE RECORDS SUMMARY | 2024-10-04 16:08 | XMS_ITS | Encounter Summary ---
Author Organization [facility] [place] [address] Care Team Providers Care Boom Stick Man Name Role Phone Marcio Devlin DO Primary Care Provider [phone] Encounter Details Date Type Department Care Team (Late st Contact Info) Description 11/09/2019 10:30 AM EST - 11/09/2019 11:15 AM EST [place] [phone] Froilan Sahni MD [facility] [place] [address] COLONOSCOPY, DIAGNOSTIC (WRVU 3.26) Social History Tobacco [...] occurs, please contact your Doctor. Please call [phone] before 8pm Mon-Fri with problems, questions or concerns. If you call after 8pm or on weekends, call the Hospital at [phone] and ask to speak to the Copying Machine Repairer tenoner operator and the auxiliary power equipment operator will contact that person for you. When should you call for help? Call [phone] anytime you think you may need emergency [...] cost to you. Content Version: 12.2 ?? [id number] [employer]. Care instructions adapted under license by [facility]. If you have questions about a medical condition or this instruction, always ask your healthcare professional. [employer] disclaims any warranty or liability for your [...] by mouth daily. SUMAtriptan (IMITREX) 20 mg/actuation [place], Non-Aerosol 1 spray as needed. 11/03/2017 metFORMIN [...] complication. Informed Consent signed by patient (or graphic art sales representative). documented in this encounter Plan of Treatment Upcoming Encounters Date Type Department Care Team (Late st Contact Info) Description 10/16/2024 10:00 AM EST Hospital Encounter Non-Invasive Cardiology Lab [place] [phone] Arrived 11/12/2024 8:00 AM EST Appointment Mammography/DXA at [address] Gabe Fong MD [facility] [place] [address] 11/30/2024 2:30 PM EDT Office [place] [address] Gabe Fong MD [facility] [place] [address] 12/07/2024 2:30 PM EDT TH Visit (TeleHealth) [place] [address] Rosemarie Morrow APRN [facility] [place] [address] documented as of this encounter Procedures Procedure Name Priority Date/Time Associated Diagnosis Comments SPECIMEN TO PATHOLOGY Routine 11/09/2019 11:33 AM EST SPECIMEN TO PATHOLOGY Routine 11/09/2019 11:33 AM EST SPECIMEN TO PATHOLOGY Routine 11/09/2019 11:33 AM EST SPECIMEN TO PATHOLOGY Routine 11/09/2019 11:33 AM EST SPECIMEN TO PATHOLOGY Routine 11/09/2019 11:33 AM EST SURGICAL PATHOLOGY REPORT Routine 11/09/2019 11:10 AM EST Colonoscopy, Biopsy ([id number]) 11/09/2019 10:48 AM EST hx poylps- 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 ??Separate Pathology report to follow Froilan Sahni MD PATHOLOGY/CYTOLOG Y ORDERABLES Performing Organization Address City/[facility]/ZIP Co de Phone Number [facility] [place] [address] * Specimen to Pathology (11/09/2019 11:33 AM EST) AP Specimen 11/09/2019 11:3 3 AM EST 11/09/2019 11:33 AM EST Narrative [facility] - 11/09/2019 11:33 AM EST Specimen requisition ordered. ??Separate Pathology report to follow Froilan Sahni MD PATHOLOGY/CYTOLOG Y ORDERABLES Performing Organization Address City/[facility]/[place] [address] * Specimen to Pathology (11/09/2019 11:33 AM EST) AP Specimen 11/09/2019 11:3 3 AM EST 11/09/2019 11:33 AM EST Narrative [facility] - 11/09/2019 11:33 AM EST Specimen requisition ordered. ??Separate Pathology report to follow Froilan Sahni MD PATHOLOGY/CYTOLOG Y ORDERABLES [facility] [place] [address] * Specimen to Pathology (11/09/2019 11:33 AM EST) AP Specimen 11/09/2019 11:3 3 AM EST 11/09/2019 11:33 AM EST Narrative [facility] - 11/09/2019 11:33 AM EST Specimen requisition ordered. ??Separate Pathology report to follow Froilan Sahni MD PATHOLOGY/CYTOLOG Y ORDERABLES Performing Organization Address [facility] [place] [address] * Specimen to Pathology (11/09/2019 11:33 AM EST) AP Specimen 11/09/2019 11:3 3 AM EST 11/09/2019 11:33 AM EST Narrative [facility] - 11/09/2019 11:33 AM EST Specimen requisition ordered. ??Separate Pathology report to follow Froilan Sahni MD PATHOLOGY/CYTOLOG Y ORDERABLES Performing Organization Address [facility] [place] [place] [address] * Surgical Pathology Report (11/09/2019 11:10 AM EST) Final Diagnosis [id number] ? Location: ; [facility]; A The signing pathologist has (i) examined [...] Brown MD Verified: ??11/10/2019 ?Pathologist Performed at: ??-[facility] Dept. of Pathology, [place], [place] CLINICAL INFORMATION Specimen Submitted: A - [...] labeled E1. ??elisa 11/10/2019 4:44 PM EST [facility] GI Biopsy 11/09/2019 11:1 0 AM EST 11/09/2019 11:10 AM EST GI Biopsy 11/09/2019 11:1 0 AM EST 11/09/2019 11:10 AM EST GI Biopsy 11/09/2019 11:1 0 AM EST 11/09/2019 11:10 AM EST GI Biopsy 11/09/2019 11:1 0 AM EST 11/09/2019 11:10 AM EST GI Biopsy 11/09/2019 11:1 0 AM EST 11/09/2019 11:10 AM EST Froilan Sahni MD PATHOLOGY/CYTOLOG Y ORDERABLES [facility] [place] [address] * COLONOSCOPY (11/09/2019 9:34 AM EST) COLONOSCOPY [facility] Endoscopy ___ Procedure Date: 11/09/2019 9:34 AM ? Patient Name: Kim Funes ? N: [id number] ? Date of : 1960 ? Age: 59 ? Order #: [id number] ? Instrument Name: [id number] ? ___ Procedure: ? Colonoscopy Indications: ? [...] Smith, FRANCESCA)1057 (Given - Provider: Avani Smith, RN)1104 (Given - Provider: Avani Smith RN)1110 (Given - Provider: Avani Smith RN) documented in this encounter Care Teams Boom Stick Man Relationship Specialty Start Date End Date Marcio Devlin DO [address] [place] [address] PCP - General Family Medicine 11/11/17 documented as of this encounter
--- OUTSIDE RECORDS SUMMARY | 2024-10-04 16:08 | XMS_ITS | Encounter Summary ---
Author Organization Formerly [facility] [place] [address] Care Team Providers Care Flight Simulator Teacher Name Role Phone Marcio Devlin DO Primary Care Provider Reason for Visit * Auth/Cert Specialty Diagnoses / Procedures Referred By Contac t Referred To Contact Diagnoses Ulcerative colitis survey UC Procedures PRO COLONOSCOPY, DIAGNOSTIC PRO COLONOSCOPY, BIOPSY PRO COLONOSCOPY, REMV LESN, SNARE COLONOSCOPY, DIAGNOSTIC Referral ID Status Reason Start Date Expiration Date Visits Re quested Visits Authorized [id number] 1 1 Encounter Details Date Type Department Care Team (Latest Contact Info) Description 12/19/2020 11:22 AM EDT - 12/19/2020 2:23 PM EDT Hospital Encounter [place] [address] Dajuan Rachel MD [facility] [place] [address] Discharge Disposition: Home Social History Tobacco Use [...] occurs, please contact your Doctor. Please call [phone] before 8pm Mon-Fri with problems, questions or concerns. If you call after 8pm or on weekends, call the Hospital at [phone] and ask to speak to the Car Scrubber control officer and the reduction furnace operator will contact that person for you. When should you call for help? Call [phone] anytime you think you may need emergency [...] any problems. Where can you learn more? [facility] View your After Visit Summary and more online at [email or web address] If you would like to provide feedback about your hospital experience, please call the Office of Patient and Family Relations at . If you have received this After Visit Summary in error, please immediately return it in person to the department, or notify the [facility] Privacy Office by calling toll free at between the hours of 8AM and 5PM to arrange for our retrieval of the documents at no cost to you. Content Version: 12.2 ?? [id number] [employer]. Care instructions adapted under license by [facility]. If you have questions about a medical condition or this instruction, always ask your healthcare professional. [employer] disclaims any warranty or liability for your [...] by mouth daily. SUMAtriptan (IMITREX) 20 mg/actuation [place], Non-Aerosol 1 spray as needed. 11/03/2017 metFORMIN [...] EST Hospital Encounter Non-Invasive [place] [address] Arrived 11/12/2024 8:00 AM EST Appointment Mammography/[place] [address] Gabe Fong MD [facility] [place] [address] 11/30/2024 2:30 PM EDT Office [place] [address] Gabe Fong MD [facility] [place] [address] 12/07/2024 2:30 PM EDT TH Visit (TeleHealth) [place] [address] Rosemarie Morrow APRN [facility] [place] [address] documented as of this encounter Procedures Procedure [...] Routine 12/19/2020 12:53 PM EDT Colonoscopy, Biopsy (64203) 12/19/2020 12:34 PM EDT survey UC COLONOSCOPY Routine 12/19/2020 12:03 PM EDT documented in this encounter Results * Specimen to Pathology (12/19/2020 1:20 PM EDT) AP Specimen 12/19/2020 1:20 PM EDT 12/19/2020 1:21 PM EDT Narrative [facility] - 12/19/2020 1:21 PM EDT Specimen requisition ordered. ??Separate Pathology report to follow L Jose Rachel MD PATHOLOGY/CYTOLOGY O IRMA Performing Organization Address [facility] [place] [address] * Specimen to Pathology (12/19/2020 1:20 PM EDT) AP Specimen 12/19/2020 1:20 PM EDT 12/19/2020 1:21 PM EDT Narrative [facility] - 12/19/2020 1:21 PM EDT Specimen requisition ordered. ??Separate Pathology report to follow L Jose Rachel MD PATHOLOGY/CYTOLOGY O IRMA Performing Organization Address City/[facility]/[place]IP [place] [address] * Specimen to Pathology (12/19/2020 1:20 PM EDT) AP Specimen 12/19/2020 1:20 PM EDT 12/19/2020 1:21 PM EDT Narrative [facility] - 12/19/2020 1:21 PM EDT Specimen requisition ordered. ??Separate Pathology report to follow L Jose Rachel MD PATHOLOGY/[place] [address] * Specimen to Pathology (12/19/2020 1:20 PM EDT) AP Specimen 12/19/2020 1:20 PM EDT 12/19/2020 1:21 PM EDT Narrative [facility] - 12/19/2020 1:21 PM EDT Specimen requisition ordered. ??Separate Pathology report to follow L Jose Rachel MD PATHOLOGY/CYTOLOGY O IRMA Performing Organization Address [facility]/[place] [address] * Specimen to Pathology (12/19/2020 1:20 PM EDT) AP Specimen 12/19/2020 1:20 PM EDT 12/19/2020 1:21 PM EDT Narrative [facility] - 12/19/2020 1:21 PM EDT Specimen requisition ordered. ??Separate Pathology report to follow L Jose Rachel MD PATHOLOGY/CYTOLOGY O IRMA Performing Organization Address [facility]/[place] [address] * Specimen to Pathology (12/19/2020 1:20 PM EDT) AP Specimen 12/19/2020 1:20 PM EDT 12/19/2020 1:20 PM EDT Narrative [facility] - 12/19/2020 1:20 PM EDT Specimen requisition ordered. ??Separate Pathology report to follow L Jose Rachel MD PATHOLOGY/CYTOLOGY O IRMA Performing Organization Address City/[facility]/[place] [address] * Specimen to Pathology (12/19/2020 1:20 PM EDT) AP Specimen 12/19/2020 1:20 PM EDT 12/19/2020 1:20 PM EDT Narrative [facility] - 12/19/2020 1:20 PM EDT Specimen requisition ordered. ??Separate Pathology report to follow L Jose Rachel MD PATHOLOGY/CYTOLOGY O IRMA [facility] [place] [address] * Surgical Pathology Report (12/19/2020 12:53 PM EDT) Final Diagnosis [id number] ? Location: 4T; EA07; A The signing [...] MD Verified: ??12/26/2020 15:38 ??Pathologist Performed at: ??-[facility] Dept. of Pathology, [place], [place] ADDITIONAL STUDIES Immunohistochemistry Studies: Formalin-fixed, paraffin-embedded [...] PATHOLOGY/CYTOLOGY O RDERABLES [facility] [place] [address] * COLONOSCOPY (12/19/2020 12:03 PM EDT) COLONOSCOPY [facility] Endoscopy Procedure Date: 12/19/2020 12:03 PM ? Patient Name: Kim Funes ? Date of : 1960 ? Age: 60 ? Order #: [id number] ? Instrument Name: [id number] ? Procedure: ? Colonoscopy Patient Profile: ? This is a 60 year old female. This ? patient has ulcerative pancolitis, is ? taking adalimumab and sulfasalazine ? and is experiencing mild symptoms. Providers: ? Freddy Rachel MD, Sandoval Helton, ? Codi MA Referring : ? Medicines: ? Midazolam mg [...] preparation was evaluated using ? the BBPS ([place] Bowel Preparation ? Scale) with scores of: [...] involvement of the left colon ? and [id number] involvement of ? the transverse and right [...] Routine 1239 (Given - Provid er: Sandoval Helton, FRANCESCA)1242 (Given - Provider: Sandoval Helton, RN) documented in this encounter Care Teams Flight Simulator Teacher Relationship Specialty Start Date End Date Marcio Devlin DO [address] [place] [address] PCP - General Family Medicine 11/11/17 documented as of this encounter
--- OUTSIDE RECORDS SUMMARY | 2024-10-04 16:08 | XMS_ITS | Encounter Summary ---
Author Organization [facility] [place] [address] Care Team Providers Care Circulation Assistant Name Role Phone Marcio Devlin DO Primary Care Provider [phone] Encounter Details Date Type Department Care Team (Late st Contact Info) Description 07/13/2019 Telephone [place] [address] Gabe Fong MD [facility] [place] [address] Social History Tobacco Use Types Packs/Day Years [...] AM EST Hospital Encounter Non-Invasive Cardiology Lab [address] Arrived 11/12/2024 8:00 AM EST Appointment Mammography/DXA at [address] Gabe Fong MD [facility] [place] [address] 11/30/2024 2:30 PM EDT Office [place] [address] Gabe Fong MD [facility] [place] [address] 12/07/2024 2:30 PM EDT TH Visit (TeleHealth) [place] [address] Rosemarie Morrow APRN [facility] [place] [address] documented as of this encounter Visit Diagnoses Not on filedocumented in this encounter Care Teams Circulation Assistant Relationship Specialty Start Date End Date Marcio Devlin DO [address] [place] [address] PCP - General Family Medicine 11/11/17 documented as of this encounter
--- OUTSIDE RECORDS SUMMARY | 2024-10-04 16:08 | XMS_ITS | Encounter Summary ---
Author Organization [facility] [place] [address] Care Team Providers Care Cable Respooler Name Role Phone Marcio Devlin DO Primary Care Provider [phone] Reason for Referral * Consultation (Routine) - Closed Specialty Diagnoses / Procedures Referred By Contac t Referred To Contact Gastroenterology Diagnoses Ulcerative pancolitis without complication colo- Ulcerative colitis restaging and surveillance. November 2020. Can be with any IBD provider. Dajuan Rachel MD [facility] [address] [facility] Endoscopy [address] [place] [address] Referral ID Status Reason Start Date Expiration Date V isits Requested Visits Authorized [id number] Closed Consult, Test & Treat 08/28/2020 08/28/2021 1 1 Encounter Details Date Type Department Care Team (Latest Contact Info) Description 08/28/2020 2:30 PM EST TH Visit (TeleHealth) [place] [address] Dajuan Rachel MD [facility] [address] Ulcerative pancolitis without complication Social [...] last colonoscopy 09/19/08 (Dr. Shady Luz at [facility]) for surveillance for dysplasia. Areas of skip [...] mouth daily. ??? SUMAtriptan (IMITREX) 20 mg/actuation [place], Non-Aerosol 1 spray as needed. ??? ferrous [...] by interface; created by interface; Colonoscopy, Biopsy (55824) (01/02/2011); Colonoscopy, Remv Lesn, Snare (52375) (01/02/2011); Colonoscopy, Biopsy (36823) (N/A, 03/04/2017); Colonoscopy, Remv Lesn, Snare (89249) (N/A, 03/04/2017); salpingectomy; orthopedic surgery; Vag Hyst, Rmv Tube/Ovary (75345) (N/A, 03/10/2018); Combined Ant/Post Colporrhaphy (83878) (N/A, 03/10/2018); Sling Oper Stres Incontinence (20050) (N/A, 03/10/2018); Revaginal Prolapse, Uterosacral (33406) (N/A, 03/10/2018); XR Fluoro Guided Joint Injection Large Right (Right, 03/09/2019); Colonoscopy, Diagnostic (03285) (N/A, 11/09/2019); and Colonoscopy, Biopsy (67833) (N/A, 11/09/2019). Family History: family history includes [...] Labs were reviewed from March. Adalimumab level ([place]) was 12.7. CBC, ESR, CMP were unremarkable. [...] calprotectin that was done in March from [facility] - Continue Humira weekly - Plan on repeat colonoscopy in November 2020 - Recommended annual flu as well as COVID-19 vaccination - Follow in IBD clinic in December following colonoscopy. The patient was in [place] during this video telehealth visit. 15 of the 20 minutes were spent znxa-py-zran counseling the patient in the issues above. Freddy Rachel MD Hydrogen Plant Operatorjigger crown pouncing machine operator Co-Director, [facility] Section of Gastroenterology [place] [address] documented in this encounter Plan of Treatment Upcoming Encounters Date Type Department Care Team (Late st Contact Info) Description 10/16/2024 10:00 AM EST Hospital Encounter Non-Invasive Cardiology Lab [place] [phone] Arrived 11/12/2024 8:00 AM EST Appointment Mammography/[place] [address] Gabe Fong MD [facility] [address] 11/30/2024 2:30 PM EDT Office [place] [address] Gabe Fong MD [facility] [address] 12/07/2024 2:30 PM EDT TH Visit (TeleHealth) Gastroenterology at [place] [phone] Rosemarie Morrow, SKIP [facility] [place] [address] Scheduled Referrals Name Type Priority Associated Diagnoses Order Schedule Referral to Gastroenterology Outpatient Referral Routine Ulcerative pancolitis without complication Ordered: 08/28/2020 documented as of this encounter Visit Diagnoses Diagnosis Ulcerative pancolitis without complication documented in this encounter Care Teams Cable Respooler Relationship Specialty Start Date End Date Marcio Devlin DO [address] [place] [address] PCP - General Family Medicine 11/11/17 documented as of this encounter
--- OUTSIDE RECORDS SUMMARY | 2024-10-04 16:08 | XMS_ITS | Encounter Summary ---
Author Organization [facility] [place] [address] Care Team Providers Care Metal Gauge Maker Name Role Phone Marcio Devlin DO Primary Care Provider [phone] Encounter Details Date Type Department Care Team (Late st Contact Info) Description 04/06/2020 Specialty [place] [address] Juan Carlos Joseph Social History [...] Hospital Encounter Non-[place] [address] Arrived 11/12/2024 8:00 AM EST Appointment Mammography/[place] [address] Gabe Fong MD [facility] [place] [address] 11/30/2024 2:30 PM EDT Office [place] [address] Gabe Fong MD [facility] [place] [address] 12/07/2024 2:30 PM EDT TH Visit (TeleHealth) [place] [address] Rosemarie Morrow APRN [facility] [place] [address] documented as of this encounter Visit Diagnoses Not on filedocumented in this encounter Care Teams Metal Gauge Maker Relationship Specialty Start Date End Date Marcio Devlin DO [address] [place] [address] PCP - General Family Medicine 11/11/17 documented as of this encounter
--- OUTSIDE RECORDS SUMMARY | 2024-10-04 16:08 | XMS_ITS | Encounter Summary ---
[place] [address] Care Team Providers Care Paint And Table Edger Name Role Phone Marcio Devlin DO Primary Care Provider [phone] Encounter Details Date Type Department Care Team (Late st Contact Info) Description 09/30/2019 Specialty [place] [address] Juan Carlos Joseph Social History [...] EST Hospital Encounter Non-Invasive [place] [address] Arrived 11/12/2024 8:00 AM EST Appointment Mammography/[place] [address] Gabe Fong MD [facility] [place] [address] 11/30/2024 2:30 PM EDT Office [place] [address] Gabe Fong MD [facility] [place] [address] 12/07/2024 2:30 PM EDT TH Visit (TeleHealth) [place] [address] Rosemarie Morrow APRN [facility] [place] [address] documented as of this encounter Visit Diagnoses Not on filedocumented in this encounter Care Teams Paint And Table Edger Relationship Specialty Start Date End Date Marcio Devlin DO [address] [place] [address] PCP - General Family Medicine 11/11/17 documented as of this encounter
--- OUTSIDE RECORDS SUMMARY | 2024-10-04 16:08 | XMS_ITS | Encounter Summary ---
Author Organization [facility] Address [facility] [place] [address] Care Team Providers Care Postulant Name Role Phone Marcio Devlin DO Primary Care Provider [phone] Encounter Details Date Type Department Care Team (Late st Contact Info) Description 12/06/2020 Orders Only G[place] [address] Dajuan Rachel MD [facility] [place] [address] Social History Tobacco Use Types Packs/Day Years [...] AM EST Hospital Encounter Non-[place] [address] Arrived 11/12/2024 8:00 AM EST Appointment Mammography/DXA at [place] [phone] Gabe Fong MD [facility] [place] [address] 11/30/2024 2:30 PM EDT Office [place] [address] Gabe Fong MD [facility] [place] [address] 12/07/2024 2:30 PM EDT TH Visit (TeleHealth) Gastroenterology at [place] [phone] Rosemarie Morrow APRN [facility] [place] [address] documented as of this encounter Visit Diagnoses Not on filedocumented in this encounter Care Teams Postulant Relationship Specialty Start Date End Date Marcio Devlin DO [address] [place] [address] PCP - General Family Medicine 11/11/17 documented as of this encounter
--- OUTSIDE RECORDS SUMMARY | 2024-10-04 16:08 | XMS_ITS | Encounter Summary ---
Author Organization [place] [address] Care Team Providers Care Electrical Engineering Professor Name Role Phone Marcio Devlin DO Primary Care Provider [phone] Reason for Visit * Reason Comments Specialty Pharmacy Review Encounter Details Date Type Department Care Team (Late st Contact Info) Description 06/29/2020 Specialty [place] [address] Berenice Novak, CONTROLS DESIGNER Social History Tobacco Use Types Packs/Day Years [...] - 06/29/2020 11:59 PM EDT The [facility] has completed a benefits investigation for Kim Graff Shantel to review their eligibility to fill at [facility]. Per patient's medication list they are prescribed Humira and is not able to be filled at the [facility]. documented in this encounter Plan of Treatment Upcoming Encounters Date Type Department Care Team (Late st Contact Info) Description 10/16/2024 10:00 AM EST Hospital Encounter Non-Invasive Cardiology Lab [place] [phone] Arrived 11/12/2024 8:00 AM EST Appointment Mammography[place] [address] Gabe Fong MD [facility] [place] [address] 11/30/2024 2:30 PM EDT [place] [address] Gabe Fong MD [facility] [place] [address] 12/07/2024 2:30 PM EDT TH Visit (TeleHealth) Gastroenterology at [address] Rosemarie Morrow, SKIP [facility] [place] [address] documented as of this encounter Visit Diagnoses Not on filedocumented in this encounter Care Teams Electrical Engineering Professor Relationship Specialty Start Date End Date Marcio Devlin DO [address] [place] [address] PCP - General Family Medicine 11/11/17 documented as of this encounter
--- OUTSIDE RECORDS SUMMARY | 2024-10-04 16:08 | XMS_ITS | Encounter Summary ---
Author Organization [facility] [place] [address] Care Team Providers Care Electrical Systems Drafter Name Role Phone Marcio Devlin DO Primary Care Provider [phone] Reason for Visit * Reason Onset Date Comments Medication Refill 04/24/2020 Encounter Details Date Type Department Care Team (Late st Contact Info) Description 04/24/2020 Ref[place] [address] Dajuan Rachel MD [facility] [place] [address] Ulcerative pancolitis without complication Social History Tobacco [...] AM EST Hospital Encounter Non-[place] [address] Arrived 11/12/2024 8:00 AM EST Appointment Mammography/DXA at [place] [address] Gabe Fong MD [facility] [place] [address] 11/30/2024 2:30 PM EDT Office Visit Rheumatology at [place] [phone] Gabe Fong MD [facility] [place] [address] 12/07/2024 2:30 PM EDT TH Visit (TeleHealth) [place] [address] Rosemarie Morrow APRN [facility] [place] [address] documented as of this encounter Visit Diagnoses Diagnosis Ulcerative pancolitis without complication documented in this encounter Care Teams Electrical Systems Drafter Relationship Specialty Start Date End Date Marcio Devlin DO [address] [place] [address] PCP - General Family Medicine 11/11/17 documented as of this encounter
--- OUTSIDE RECORDS SUMMARY | 2024-10-04 16:08 | XMS_ITS | Encounter Summary ---
Author Organization [facility] [place] [address] Care Team Providers Care Dancing Teacher Name Role Phone Marcio Devlin DO Primary Care Provider [phone] Encounter Details Date Type Department Care Team (Late st Contact Info) Description 10/15/2019 Telephone [place] [address] Karen Gupta Social History Tobacco Use Types [...] - 10/15/2019 1:14 PM EST Kim Funes [id number] Diagnosis/Indication: COLO 1. Have you ever had [...] EST Hospital Encounter Non-Invasive [place] [address] Arrived 11/12/2024 8:00 AM EST Appointment Mammography/DXA at [place] [phone] Gabe Fong MD [facility] [place] [address] [address] 11/30/2024 2:30 PM EDT Office Visit Rheumatology at [place] [phone] Gabe Fong MD [facility] [place] [address] [address] 12/07/2024 2:30 PM EDT TH Visit (TeleHealth) Gastroenterology at [place] [phone] Rosemarie Morrow, PROCEDURE MANAGER [facility] [place] [address] documented as of this encounter Visit Diagnoses Not on filedocumented in this encounter Care Teams Dancing Teacher Relationship Specialty Start Date End Date Marcio Devlin DO [facility] [place] [address] PCP - General Family Medicine 11/11/17 documented as of this encounter
--- OUTSIDE RECORDS SUMMARY | 2024-10-04 16:08 | XMS_ITS | Encounter Summary ---
Author Organization [facility] [place] [address] Care Team Providers Care Medical Field Representative Name Role Phone Marcio Devlin DO Primary Care Provider [phone] Reason for Visit * Reason Comments Specialty Pharmacy Review Encounter Details Date Type Department Care Team (Late st Contact Info) Description 08/28/2020 Specialty [place] [address] Berenice Novak, PARTS COUNTER SALES PERSON Social History Tobacco Use Types Packs/Day Years [...] Novak - 08/28/2020 11:59 PM EST The [facility] has completed a benefits investigation for Kim Graff Shantel to review their eligibility to fill at [facility]. Per patient's medication list they are prescribed Humira and the medication is not able to be filled at the [facility]. documented in this encounter Plan of Treatment Upcoming Encounters Date Type Department Care Team (Late st Contact Info) Description 10/16/2024 10:00 AM EST Hospital Encounter Non-Invasive Cardiology Lab [place] [phone] Arrived 11/12/2024 8:00 AM EST Appointment Mammography/[place] [address] Gabe Fong MD [facility] [place] [address] 11/30/2024 2:30 PM EDT Office [place] [address] Gabe Fong MD [facility] [place] [address] 12/07/2024 2:30 PM EDT TH Visit (TeleHealth) Gastroenterology at [place] [address] Rosemarie Morrow, SKIP [facility] [place] [address] documented as of this encounter Visit Diagnoses Not on filedocumented in this encounter Care Teams Medical Field Representative Relationship Specialty Start Date End Date Marcio Devlin DO [address] [place] [address] PCP - General Family Medicine 11/11/17 documented as of this encounter
--- OUTSIDE RECORDS SUMMARY | 2024-10-04 16:08 | XMS_ITS | Encounter Summary ---
Author Organization Formerly [facility] [place] [address] Care Team Providers Care Photoengraving Supervisor Name Role Phone Marcio Devlin DO Primary Care Provider [phone] Encounter Details Date Type Department Care Team (Latest Contact Info) Description 03/27/2020 9:00 AM EDT TH Visit (TeleHealth) [place] [address] Clau Cruz MD [facility] [place] [address] WRIGHT (nonalcoholic steatohepatitis) Social History Tobacco Use [...] mouth daily. ??? SUMAtriptan (IMITREX) 20 mg/actuation [place], Non-Aerosol 1 spray as needed. ??? ferrous [...] by interface; created by interface; Colonoscopy, Biopsy (92144) (01/02/2011); Colonoscopy, Remdonna Palmer, Snare (23834) (01/02/2011); Colonoscopy, Biopsy (28379) (N/A, 03/04/2017); Colonoscopy, Remv Agustínn, Snare (18954) (N/A, 03/04/2017); salpingectomy; orthopedic surgery; Vag Hyst, Rmv Tube/Ovary (58504) (N/A, 03/10/2018); Combined Ant/Post Colporrhaphy (89510) (N/A, 03/10/2018); Sling Oper Stres Incontinence (00107) (N/A, 03/10/2018); Revaginal Prolapse, Uterosacral (40248) (N/A, 03/10/2018); XR Fluoro Guided Joint Injection Large Right (Right, 03/09/2019); Colonoscopy, Diagnostic (91705) (N/A, 11/09/2019); and Colonoscopy, Biopsy (41217) (N/A, 11/09/2019). Family History: family history includes [...] telemedicine visit. The patient was located in [place] at the time of their visit. Clau Cruz MD [facility] [place] [address] documented in this encounter Plan of Treatment Upcoming Encounters Date Type Department Care Team (Late st Contact Info) Description 10/16/2024 10:00 AM EST Hospital Encounter Non[place] [address] Arrived 11/12/2024 8:00 AM EST Appointment Mammography/[place] [address] Gabe Fong MD [facility] [place] [address] 11/30/2024 2:30 PM EDT Office Visit [place] [address] Gabe Fong MD [facility] [place] [address] 12/07/2024 2:30 PM EDT TH Visit (TeleHealth) [place] [address] Rosemarie Morrow, SKIP [facility] [place] [address] documented as of this encounter Visit Diagnoses Diagnosis WRIGHT (nonalcoholic steatohepatitis) Other chronic nonalcoholic liver disease documented in this encounter Care Teams Photoengraving Supervisor Relationship Specialty Start Date End Date Marcio Devlin DO [facility] [place] [address] PCP - General Family Medicine 11/11/17 documented as of this encounter
--- OUTSIDE RECORDS SUMMARY | 2024-10-04 16:08 | XMS_ITS | Encounter Summary ---
[place] [address] Care Team Providers Care Drafting Instructor Name Role Phone Marcio Devlin DO Primary Care Provider [phone] Reason for Visit * Reason Comments Specialty Pharmacy Review Encounter Details Date Type Department Care Team (Late st Contact Info) Description 03/27/2020 Specialty [place] [address] Berenice Novak, [facility] Social History Tobacco Use Types [...] AM EST Hospital Encounter Non-[place] [address] Arrived 11/12/2024 8:00 AM EST Appointment Mammography/[place] [address] Gabe Fong MD [facility] [place] [address] 11/30/2024 2:30 PM EDT Office [place] [address] Gabe Fong MD [facility] [place] [address] 12/07/2024 2:30 PM EDT TH Visit (TeleHealth) [place] [address] Rosemarie Morrow APRN [facility] [place] [address] documented as of this encounter Visit Diagnoses Not on filedocumented in this encounter Care Teams Drafting Instructor Relationship Specialty Start Date End Date Marcio Devlin DO [address] [place] [address] PCP - General Family Medicine 11/11/17 documented as of this encounter
--- OUTSIDE RECORDS SUMMARY | 2024-10-04 16:08 | XMS_ITS | Encounter Summary ---
Author Organization [facility] Address [facility] [place] [address] Care Team Providers Care Molding Cutter Name Role Phone Marcio Devlin DO Primary Care Provider [phone] Encounter Details Date Type Department Care Team (Latest Contact Info) Description 08/07/2020 2:30 PM EST TH Visit (TeleHealth) [place] [phone] Gabe Fong MD [facility] [place] [address] Inflammatory arthropathy; Ulcerative colitis without complications, unspecified [...] WITH BX performed by YAQUELIN ESTRADA at [facility] ENDOSCOPY ??? PRO COLONOSCOPY, BIOPSY N/A 03/04/2017 COLONOSCOPY FLEXIBLE, WITH BX (WRVU 3.66) performed by Raúl Austin MD at [facility] ENDOSCOPY ??? PRO COLONOSCOPY, BIOPSY N/A 11/09/2019 COLONOSCOPY FLEXIBLE, WITH BX (WRVU 3.66) performed by Froilan Shani MD at [facility] ENDOSCOPY ??? PRO COLONOSCOPY, DIAGNOSTIC N/A 11/09/2019 COLONOSCOPY, DIAGNOSTIC performed by Froilan Sahni MD at [facility] ENDOSCOPY ??? PRO COLONOSCOPY, REMV LESN, SNARE 01/02/2011 COLONOSCOPY, POLYPECTOMY, REMOVAL LESION BY SNARE performed by YAQUELIN ESTRADA at [facility] ENDOSCOPY ??? PRO COLONOSCOPY, REMV LESN, SNARE N/A 03/04/2017 COLONOSCOPY, POLYPECTOMY, REMOVAL LESION BY SNARE (WRVU 4.67) performed by Raúl Austin MD at [facility] ENDOSCOPY ??? PRO COMBINED ANT/POST COLPORRHAPHY N/A 03/10/2018 COLPORRHAPHY ANTERIOR-POSTERIOR; INC CYSTOURETHROSCOPY (WRVU 14.44) performed by Liang Fong MD at [facility] MAIN OR ??? PRO REVAGINAL PROLAPSE, UTEROSACRAL N/A 03/10/2018 COLPOPEXY, VAGINAL, INTRAPERITONEAL APPROACH (WRVU 11.66) performed [facility] ??? PRO SLING OPER STRES INCONTINENCE N/A 03/10/2018 URETHRAL SUSPENSION, SLING\FASCIA OR SYNTHETIC ([facility] performed by Liang Fong MD at [facility] MAIN OR ??? PRO VAG HYST, RMV TUBE/OVARY N/A 03/10/2018 HYSTERECTOMY, VAGINAL, REMOVAL TUBE(S) & OR OVARY(S) ([facility] 15.94) performed by Liang Fong MD at [facility] MAIN OR ??? SALPINGECTOMY ??? XR FLUORO INJECTION DRAINAGE JOINT LG RIGHT Right 03/09/2019 XR Fluoro Guided Joint Injection Large Right 03/09/2019 [facility] RAD XRAY Family History Problem Relation [...] file Gets together: Not on file Attends presybeterian service: Not on file Active member of [...] mouth daily. ??? SUMAtriptan (IMITREX) 20 mg/actuation [place], Non-Aerosol 1 spray as needed. ??? ferrous [...] mouth daily. ??? SUMAtriptan (IMITREX) 20 mg/actuation [place], Non-Aerosol 1 spray as needed. ??? ferrous [...] EST Hospital Encounter Non-[place] [address] Arrived 11/12/2024 8:00 AM EST Appointment Mammography/DXA at [place] [phone] Gabe Fong MD [facility] [address] [address] 11/30/2024 2:30 PM EDT Office [place] [address] Gabe Fong MD [facility] [address] [place] [address] 12/07/2024 2:30 PM EDT TH Visit (TeleHealth) [place] [address] Rosemarie Morrow APRN [facility] [place] [address] documented as of this encounter Visit Diagnoses [...] location documented in this encounter Care Teams Molding Cutter Relationship Specialty Start Date End Date Marcio Devlin DO [address] [place] [address] PCP - General Family Medicine 11/11/17 documented as of this encounter
--- OUTSIDE RECORDS SUMMARY | 2024-10-04 16:08 | XMS_ITS | Encounter Summary ---
[place] [address] Care Team Providers Care Public Employment Mediator Name Role Phone Marcio Devlin DO Primary Care Provider [phone] Encounter Details Date Type Department Care Team (Late st Contact Info) Description 11/15/2019 Specialty [place] [address] Berenice Novak, [facility] Social History [...] AM EST Hospital Encounter Non-Invasive [place] [address] Arrived 11/12/2024 8:00 AM EST Appointment Mammography/[place] [address] Gabe Fong MD [facility] [place] [address] 11/30/2024 2:30 PM EDT Office [place] [address] Gabe Fong MD [facility] [place] [address] 12/07/2024 2:30 PM EDT TH Visit (TeleHealth) [place] [address] Rosemarie Morrow APRN [facility] [place] [address] documented as of this encounter Visit Diagnoses Not on filedocumented in this encounter Care Teams Public Employment Mediator Relationship Specialty Start Date End Date Marcio Devlin DO [address] [place] [address] PCP - General Family Medicine 11/11/17 documented as of this encounter
--- OUTSIDE RECORDS SUMMARY | 2024-10-04 16:08 | XMS_ITS | Encounter Summary ---
Author Organization [facility] [place] [address] Care Team Providers Care Set Up Mechanic Coil Winding Machines Name Role Phone Marcio Devlin DO Primary Care Provider [phone] Reason for Visit * Consultation (Routine) - Closed Specialty Diagnoses / Procedures Referred By Contac t Referred To Contact Endocrinology Diagnoses Ulcerative colitis without complications, unspecified location Osteopenia, unspecified location Ulcerative colitis without complications, unspecified location Osteopenia, unspecified location Gabe Fong MD [facility] [place] [address] [facility] [address] [place] [phone] Referral ID Status Reason Start Date Expiration Date V isits Requested Visits Authorized [id number] Closed Consult, Test & Treat 04/06/2020 04/06/2021 1 1 Encounter Details Date Type Department Care Team (Latest Contact Info) Description 04/28/2020 2:00 PM EDT TH Visit (TeleHealth) [place] [address] Lucrecia Park MD [facility] [place] [address] Osteopenia, unspecified location (Primary Dx); [...] Lab: check lab today or soon locally ([facility] lab) for baseline PTH, TSH, corisol, 25-vitamin [...] Marcio Devlin DO and Dr. Gabe Fong (container maker) For the evaluation of osteopenia, worsening since [...] pleasant 60 y.o. female recently evaluated by container maker for ankylosing spondylitis on Humira weekly for [...] mouth daily. ??? SUMAtriptan (IMITREX) 20 mg/actuation [place], Non-Aerosol 1 spray as needed. ??? ferrous [...] file Gets together: Not on file Attends alevism service: Not on file Active member of [...] Lab: check lab today or soon locally ([facility] lab) for baseline PTH, TSH, corisol, 25-vitamin [...] AM EST Hospital Encounter Non-Invasive [place] [address] Arrived 11/12/2024 8:00 AM EST Appointment Mammography/[place] [address] Gabe Fong MD [facility] [address] [place] [address] 11/30/2024 2:30 PM EDT Office [place] [address] Gabe Fong MD [facility] [address] [place] [address] 12/07/2024 2:30 PM EDT TH Visit (TeleHealth) [place] [address] Rosemarie Morrow APRN [facility] [place] [address] documented as of this encounter Visit Diagnoses Diagnosis Osteopenia, unspecified location- Primary Controlled type 2 diabetes mellitus without complication, without long-term current use of insulin Mixed hyperlipidemia Ankylosing spondylitis of multiple sites in spine Ankylosing spondylitis documented in this encounter Care Teams Set Up Mechanic Coil Winding Machines Relationship Specialty Start Date End Date Marcio [place] [place] [address] PCP - General Family Medicine 11/11/17 documented as of this encounter
--- OUTSIDE RECORDS SUMMARY | 2024-10-04 16:08 | XMS_ITS | Encounter Summary ---
Author Organization [facility] [place] [address] Care Team Providers Care Asphalt Tile Floor Layer Name Role Phone Marcio Devlin DO Primary Care Provider [phone] Encounter Details Date Type Department Care Team (Late st Contact Info) Description 08/28/2020 Telephone [place] [address] Elisha Hall CMA Social History Tobacco Use Types Packs/Day Years [...] AM EST Hospital Encounter Non-[place] [address] Arrived 11/12/2024 8:00 AM EST Appointment Mammography/DXA at [address] Gabe Fong MD [facility] [place] [address] 11/30/2024 2:30 PM EDT Office Visit Rheumatology at [place] [phone] Gabe Fong MD [facility] [place] [address] 12/07/2024 2:30 PM EDT TH Visit (TeleHealth) Gastroenterology at [place] [phone] Rosemarie Morrow, SKIP [facility] [place] [address] documented as of this encounter Visit Diagnoses Not on filedocumented in this encounter Care Teams Asphalt Tile Floor Layer Relationship Specialty Start Date End Date Marcio Devlin DO [address] [place] [address] PCP - General Family Medicine 11/11/17 documented as of this encounter
--- OUTSIDE RECORDS SUMMARY | 2024-10-04 16:08 | XMS_ITS | Encounter Summary ---
[place] [address] Care Team Providers Care Lime Sludge Kiln Operator Name Role Phone Marcio Devlin DO Primary Care Provider [phone] Reason for Visit * Reason Comments Prior Authorization Humira 40 mg/0.4 ml PNKT Encounter Details Date Type Department Care Team (Late st Contact Info) Description 04/06/2020 Specialty [place] [address] Dennis Solorzano, BRYCE Social History Tobacco Use [...] Graff Shantel Patient : 1960 Patient Address: [address] [place] [phone] (home) Medication Name: HUMIRA(CF) PEN 40 MG/0.4 ML SUBCUTANEOUS KIT Medication ID: [id number] Patient Location: Patient Location Comment: Subscriber Insurance: Subscriber Insurance Comment: [employer] Fax: Physician: Renee KEENE Physician Comment: Sent Via: Telephone Truong: Ref/Case/PA#: [id number] Medication Strength Frequency Requested: Humira Pen 40 mg/0.4 ml PNKT Inject 40 mg (1 Pen) Subcutaneously Every 7 Days Qty/Day Supply: New Start: Renewal Diagnosis & ICD-10 Code: Ulcerative Pancolitis K51.00 Ankylosing Spondylitis M45.9 Patient Notified: Yes Submission Notes: Reauthorization * Dennis Solorzano CPHT - 04/06/2020 11:54 AM EDT [facility], Prior Authorization Approval Medication Name: HUMIRA(CF) PEN 40 MG/0.4 ML SUBCUTANEOUS KIT Medication ID: [id number] Fillable at [facility]: No Approval Dates: 04/10/2020 to 04/09/2021 Insurance requirements/notes: Ins Requires Patient Fill With [facility]. Other Notes: None Case/Reference #: [id number] Approval notification Received via: Telephone Copay: N/A Copay assistance: None Copay Notes: N/A Insurance mandated Pharmacy: [facility] staff will be reaching out to the patient to inform them of their medication's approval by[employer] insurance. If applicable, a pharmacist will speak with the patient to offer our specialty pharmacy services and to arrange delivery of their medication. documented in this encounter Plan of Treatment Upcoming Encounters Date Type Department Care Team (Late st Contact Info) Description 10/16/2024 10:00 AM EST Hospital Encounter Non-Invasive Cardiology Lab [place] [phone] Arrived 11/12/2024 8:00 AM EST Appointment Mammography/DXA at [address] Gabe Fong MD [facility] [place] [address] 11/30/2024 2:30 PM EDT Office [place] [address] Gabe Fong MD [facility] [place] [address] 12/07/2024 2:30 PM EDT TH Visit (TeleHealth) Gastroenterology at [place] [address] Rosemarie Keene, SKIP [facility] [place] [address] documented as of this encounter Visit Diagnoses Not on filedocumented in this encounter Care Teams Lime Sludge Kiln Operator Relationship Specialty Start Date End Date Marcio Devlin DO [address] [place] [address] PCP - General Family Medicine 11/11/17 documented as of this encounter
--- OUTSIDE RECORDS SUMMARY | 2024-10-04 16:08 | XMS_ITS | Encounter Summary ---
Author Organization [facility] [place] [address] Care Team Providers Care Furniture Builder Name Role Phone Marcio Devlin DO Primary Care Provider [phone] Encounter Details Date Type Department Care Team (Latest Contact Info) Description 03/27/2020 10:00 AM EDT TH Visit (TeleHealth) [place] [phone] Dajuan Rachel MD [facility] [address] Ulcerative pancolitis without complication Social History Tobacco [...] calprotectin that was done in November from [facility] - Repeat fecal calprotectin now, [...] last colon[facility] [...] mouth daily. ??? SUMAtriptan (IMITREX) 20 mg/actuation [place], Non-Aerosol 1 spray as needed. ??? ferrous [...] by interface; created by interface; Colonoscopy, Biopsy (31426) (01/02/2011); Colonoscopy, Remv Agustínn, Snare (69360) (01/02/2011); Colonoscopy, Biopsy (28213) (N/A, 03/04/2017); Colonoscopy, Remv Lesn, Snare (35491) (N/A, 03/04/2017); salpingectomy; orthopedic surgery; Vag Hyst, Rmv Tube/Ovary (95783) (N/A, 03/10/2018); Combined Ant/Post Colporrhaphy (55934) (N/A, 03/10/2018); Sling Oper Stres Incontinence (08075) (N/A, 03/10/2018); Revaginal Prolapse, Uterosacral (25495) (N/A, 03/10/2018); XR Fluoro Guided Joint Injection Large Right (Right, 03/09/2019); Colonoscopy, Diagnostic (73652) (N/A, 11/09/2019); and Colonoscopy, Biopsy (88248) (N/A, 11/09/2019). Family History: family history includes [...] level from November that was done at [facility], so we will track that [...] calprotectin that was done in November from [facility] - Repeat fecal calprotectin now, along with cbc, cmp, crp, and adalimumab level - Timing of repeat colonoscopy TBD as above, but should be no later than Sep - She is UTD on her vaccinations - Following with Dr. Cruz for her MÉNDZE and seeing rheumatology as well - Follow in IBD clinic in 4 months, telehealth ok unless she is feeling unwell then in-person wouldbe better Patient seen and discussed with Dr. Wilson Atkins MD [facility] [place] [address] ATTENDING ADDENDUM I interviewed Ms. Funes via [...] with them as documented. Freddy Rachel MD Artist Relationship Managercloth checker Co-Director, [facility] Section of Gastroenterology [place] [address] documented in this encounter Plan of Treatment Upcoming Encounters Date Type Department Care Team (Late st Contact Info) Description 10/16/2024 10:00 AM EST Hospital Encounter Non-Invasive Cardiology Lab [place] [phone] Arrived 11/12/2024 8:00 AM EST Appointment Mammography/[place] [address] Gabe Fong MD [facility] [place] [address] 11/30/2024 2:30 PM EDT Office Visit Rheumatology at [place] [phone] Gabe Fong MD [facility] [place] [address] 12/07/2024 2:30 PM EDT TH Visit (TeleHealth) Gastroenterology at [place] [phone] Rosemarie Morrow, SKIP [facility] [place] [address] documented as of this encounter Visit Diagnoses Diagnosis Ulcerative pancolitis without complication documented in this encounter Care Teams Furniture Builder Relationship Specialty Start Date End Date Marcio Devlin DO [address] [place] [address] PCP - General Family Medicine 11/11/17 documented as of this encounter
--- OUTSIDE RECORDS SUMMARY | 2024-10-04 16:08 | XMS_ITS | Encounter Summary ---
Author Organization [facility] [place] [address] Care Team Providers Care Lan Analyst Name Role Phone Marcio Devlin DO Primary Care Provider [phone] Reason for Referral * Consultation (Routine) - Closed Specialty Diagnoses / Procedures Referred By Contac t Referred To Contact Endocrinology Diagnoses Ulcerative colitis without complications, unspecified location Osteopenia, unspecified location Ulcerative colitis without complications, unspecified location Osteopenia, unspecified location Gabe Fong MD [facility] [address] [place] [address] [facility] Endocrinology [address] [place] [phone] Referral ID Status Reason Start Date Expiration Date V isits Requested Visits Authorized [id number] Closed Consult, Test & Treat 04/06/2020 04/06/2021 1 1 Reason for Visit * Reason Comments Follow-up Encounter Details Date Type Department Care Team (Late st Contact Info) Description 04/06/2020 10:00 AM EDT Office [place] [address] Gabe Fong MD [facility] [address] [place] [address] Inflammatory arthropathy; Ulcerative colitis without [...] WITH BX performed by YAQUELIN ESTRADA at [facility] ENDOSCOPY ??? PRO COLONOSCOPY, BIOPSY N/A 03/04/2017 COLONOSCOPY FLEXIBLE, WITH BX (WRVU 3.66) performed by Raúl Austin MD at [facility] ENDOSCOPY ??? PRO COLONOSCOPY, BIOPSY N/A 11/09/2019 COLONOSCOPY FLEXIBLE, WITH BX (WRVU 3.66) performed by Froilan Sahni MD at [facility] ENDOSCOPY ??? PRO COLONOSCOPY, DIAGNOSTIC N/A 11/09/2019 COLONOSCOPY, DIAGNOSTIC performed by Froilan Sahni MD at [facility] ENDOSCOPY ??? PRO COLONOSCOPY, REMV LESN, SNARE 01/02/2011 COLONOSCOPY, POLYPECTOMY, REMOVAL LESION BY SNARE performed by YAQUELIN ESTRADA at [facility] ENDOSCOPY ??? PRO COLONOSCOPY, REMV LESN, SNARE N/A 03/04/2017 COLONOSCOPY, POLYPECTOMY, REMOVAL LESION BY SNARE (WRVU 4.67) performed by Raúl Austin MD at [facility] ENDOSCOPY ??? PRO COMBINED ANT/POST COLPORRHAPHY N/A 03/10/2018 COLPORRHAPHY ANTERIOR-POSTERIOR; INC CYSTOURETHROSCOPY (WRVU 14.44) performed by Liang Fong MD at [facility] MAIN OR ??? PRO REVAGINAL PROLAPSE, UTEROSACRAL N/A 03/10/2018 COLPOPEXY, VAGINAL, INTRAPERITONEAL APPROACH (WRVU 11.66) [facility] ??? PRO SLING OPER STRES INCONTINENCE N/A 03/10/2018 URETHRAL SUSPENSION, SLING\FASCIA OR SYNTHETIC (WRVU 12.13) performed by Liang Fong MD at [facility] MAIN OR ??? PRO VAG HYST, RMV TUBE/OVARY N/A 03/10/2018 HYSTERECTOMY, VAGINAL, REMOVAL TUBE(S) & OR OVARY(S) ([facility] performed by Liang Fong MD at [facility] MAIN OR ??? SALPINGECTOMY ??? XR FLUORO INJECTION DRAINAGE JOINT LG RIGHT Right 03/09/2019 XR Fluoro Guided Joint Injection Large Right 03/09/2019 [facility] RAD XRAY Family History Problem Relation Age [...] on phone: None Gets together: None Attends denominational service: None Active member of club or [...] mouth daily. ??? SUMAtriptan (IMITREX) 20 mg/actuation [place], Non-Aerosol 1 spray as needed. ??? ferrous [...] mouth daily. ??? SUMAtriptan (IMITREX) 20 mg/actuation [place], Non-Aerosol 1 spray as needed. ??? ferrous [...] AM EST Hospital Encounter Non-Invasive [place] [phone] Arrived 11/12/2024 8:00 AM EST Appointment Mammography/[place] [address] Gabe Fong MD [facility] [place] [address] 11/30/2024 2:30 PM EDT Office [place] [phone] Gabe Fong MD [facility] [place] [address] 12/07/2024 2:30 PM EDT TH Visit (TeleHealth) [place] [address] Rosemarie Morrow, SKIP [facility] [place] [address] Scheduled Referrals Name Type Priority Associated Diagnoses [...] complication documented in this encounter Care Teams Lan Analyst Relationship Specialty Start Date End Date Marcio Devlin DO [address] [facility] [place] [address] PCP - General Family Medicine 11/11/17 documented as of this encounter
--- OUTSIDE RECORDS SUMMARY | 2024-10-04 16:08 | XMS_ITS | Encounter Summary ---
Author [place] [address] Care Team Providers Care Concierge Name Role Phone Marcio Devlin DO Primary Care Provider [phone] Encounter Details Date Type Department Care Team (Latest Contact Info) Description 11/09/2019 1:00 PM EST Laboratory Appointment Lab [address] [place] [address] Ulcerative pancolitis without complication; Adalimumab [...] AM EST Hospital Encounter Non-[place] [address] Arrived 11/12/2024 8:00 AM EST Appointment Mammography/[place] [address] Gabe Fong MD [facility] [place] [address] 11/30/2024 2:30 PM EDT Office [place] [address] Gabe Fong MD [facility] [place] [address] 12/07/2024 2:30 PM EDT TH Visit (TeleHealth) [place] [address] Rosemarie Morrow APRN [facility] [place] [address] documented as of this encounter Procedures Procedure [...] 1:19 PM EST) Neutrophil % 63.2 % [facility] Neutrophil Absolute 4.44 1.70 - 6.10 x10(3)/[facility] LABORATORY Lymph % 26.1 % [facility] Lymphocytes Abs 1.8 0.9 - 3.2 x10(3)/[facility] LABORATORY Monocyte % 8.9 % [facility] Monocyte Abs 0.6 0.3 - 0.9 x10(3)/[facility] LABORATORY Eos % 1.1 % [facility] Eosinophils Abs 0.1 0.0 - 0.4 x10(3)/[facility] LABORATORY Basophil % 0.4 % [facility] Baso Absolute 0.0 0.0 - 0.1 x10(3)/[facility] LABORATORY Immature Gran % 0.30 % [facility] Comment: Immature granulocytes(IG's)percentage and absolute count will include metamyelocytes, myelocytes, and promyelocytes. Blood smears from CBCs yielding IG's will be scanned manually for concordance. If this scan disagrees with the automated IG or if promyelocytes are noted, a manual differential will be performed. Immature Gran Absolute 0.02 0.00 - 0.04 x10(3)/[facility] LABORATORY Blood specimen (specimen) 11/09/2019 1:19 PM EST 11/09/2019 1:30 PM EST Narrative Resulting Agency Comment Spec In Lab Froilan Sahni MD HEMATOLOGY ORDERA BLES [facility] [place] [address] * Hemogram (11/09/2019 1:19 PM EST) White Blood Cell 7.0 4.0 - 9.5 x10(3)/[facility] LABORATORY Red Blood Cell 4.31 4.00 - 5.21 x10(6)/[facility] LABORATORY Hemoglobin 12.9 11.7 - 15.5 gm/dL [facility] Hematocrit 40.2 35.7 - 45.8 % [facility] Mean Cell Volume 93.3 82.6 - 94.4 fL [facility] Mean Cell Hemoglobin 29.9 27.1 - 32.0 pg [facility] Mean Cell Hemoglobin Concentration 32.1 31.7 - 35.0 gm/dL [facility] Platelet 241 145 - 357 x10(3)/[facility] LABORATORY RDW Standard Deviation 45.3 37.0 - 46.0 [facility] LABORATORY RDW coefficient of variation 13.2 11.5 - 14.1 % [facility] Mean Platelet Volume 10.1 7.6 - 12.9 [facility] LABORATORY NRBC% auto 0.0 % [facility] NRBC Absolute 0.000 0.000 - 0.000 x10(3)/[facility] LABORATORY Blood specimen (specimen) 11/09/2019 1:19 PM EST 11/09/2019 1:30 PM EST Narrative Resulting Agency Comment Spec In Lab Froilan Sahni MD HEMATOLOGY ORDERA BLES [facility] [place] [address] * (ABNORMAL) CRP, acute inflammation (11/09/2019 1:19 PM EST) C-Reactive Protein 5.4(H) <=4.9 mg/L [facility] Blood specimen (specimen) 11/09/2019 1:19 PM EST 11/09/2019 1:30 PM EST Narrative Resulting Agency Comment Spec In Lab Froilan Sahni MD CHEMISTRY ORDERAB LES [facility] [place] [address] * Comprehensive metabolic panel (non-fasting) (11/09/2019 1:19 PM EST) Pathologist [facility] Glucose 124 65 - 199 mg/dL [facility] Comment:Diabetes: >=200 mg/d L plus symptoms Blood Urea Nitrogen 8 8 - 18 mg/dL [facility] Creatinine 0.80 0.70 - 1.20 mg/dL [facility] Sodium 145 135 - 145 mmol/L [facility] Potassium 3.7 3.5 - 5.0 mmol/L [facility] Comment: Please note: ??Patients with WBC >100,000 may have falsely elevated Potassium levels. ??For accurate Potassium quantification in these patients send serum separator tube (gold top) for subsequent determinations. ??Contact the Clinical Chemistry Laboratory if there are any questions. Chloride 105 98 - 107 mmol/L [facility] Carbon Dioxide 27 22 - 31 mmol/L [facility] Anion Gap 13 5 - 15 mmol/L [facility] Calcium 9.5 8.5 - 10.5 mg/dL [facility] Protein, Total 7.9 6.1 - 8.0 gm/dL [facility] Albumin 4.0 3.2 - 5.2 gm/dL [facility] Aspartate Aminotransferase 19 0 - 30 unit/L [facility] Alanine Aminotransferase 12 0 - 30 unit/L [facility] Alkaline Phosphatase 82 35 - 105 unit/L [facility] Bilirubin, Total 0.4 0.2 - 1.3 mg/dL [facility] Est Glomerular Filtration Rate 81 >=60 mL/min/1. 73 m?? [facility] Comment: The eGFR was calculated using the CKD-EPI equation. As with all creatinine based estimates of kidney function, eGFR values calculated with the CKD-EPI equation are not accurate in patients with acute kidney failure, extremes of body mass or the acutely ill. http://[employer]/[facility] eGFR 94 >=60 mL/min/1. 73 m?? [facility] Comment: The eGFR was calculated using the CKD-EPI equation. As with all creatinine based estimates of kidney function, eGFR values calculated with the CKD-EPI equation are not accurate in patients with acute kidney failure, extremes of body mass or the acutely ill. http://[employer]/[facility] CITY[facility] Blood specimen (specimen) 11/09/2019 1:19 PM EST 11/09/2019 1:30 PM EST Narrative Resulting Agency Comment Spec In Lab Froilan Sahni MD CHEMISTRY ORDERAB LES Performing Organization Address City/State/[facility] Co de Phone Number [facility] [place] [address] * QuantiFERON-TB Gold (11/09/2019 1:19 PM EST) Quantiferon Nil 0.040 IU/mL [facility] QFT TB Ag1-Nil 0.010 IU/mL [facility] QFT TB Ag2-Nil 0.100 IU/mL [facility] Quantiferon Mitogen-Nil >10.000 IU/mL [facility] Quantiferon-TB Gold Negative Negative [facility] Quantiferon Tb Interp M. tuberculosis [...] affect immune function, or other immunological factors. [facility] Comment: The performance of [...] Lab Froilan Sahni MD CHEMISTRY ORDERAB LES [facility] [place] [address] * Hepatitis B Core Antibody, Total (11/09/2019 1:19 PM EST) Hepatitis B Core Antibody Negative Negative [facility] Blood specimen (specimen) 11/09/2019 1:19 PM EST 11/09/2019 1:30 PM EST Narrative Resulting Agency Comment Spec In Lab Froilan Sahni MD CHEMISTRY ORDERAB LES Performing Organization Address [facility] Co de Phone Number [facility] [place] [address] * Hepatitis B Surface Antibody (11/09/2019 1:19 PM EST) Hepatitis B Surface Antibody, Quantitative 61.4 IU/L [facility] Comment: HepB Surface Ab Quant: Unvaccinated: < 8.5 IU/L Vaccinated: > 11.5 IU/L Hepatitis B Surface Antibody Positive [facility] Comment: Patient is considered to be immune to HBV infection. Expected Results: Vaccinated: Positive Unvaccinated: Negative Blood specimen (specimen) 11/09/2019 1:19 PM EST 11/09/2019 1:30 PM EST Narrative Resulting Agency Comment Spec In Lab Froilan Sahni MD CHEMISTRY ORDERAB LES Performing Organization Address [facility] Co de Phone Number [facility] [place] [address] * Hepatitis B Surface Antigen (11/09/2019 1:19 PM EST) Pathologist [facility] Hepatitis B Surface Antigen Negative Negative [facility] Blood specimen (specimen) 11/09/2019 1:19 PM EST 11/09/2019 1:30 PM EST Narrative Resulting Agency Comment Spec In Lab Froilan Sahni MD CHEMISTRY ORDERAB LES Performing Organization Address [facility] Co de Phone Number [facility] [place] [address] * Adalimumab Quant with Reflex to Antibody (11/09/2019 1:19 PM EST) Adalimumab Level (JANUARY) 6.0 mcg/mL [facility] Comment: For clinical assessment of response to therapy, adalimumab should be measured at trough. When adalimumab trough concentrations are greater than 5.0 mcg/mL, clinically relevant [id number] are unlikely and reflex testing will not be performed. REFERENCE VALUE Limit of Quantitation = 0.8 mcg/mL ADDITIONAL INFORMATION This test was developed and its performance characteristics determined by [facility] in a manner consistent with CLIA requirements. This test has not been cleared or approved by the U.S. Food and Drug Administration. Test Performed by: [facility] - [facility] [address] [place] [address] Manager Land: Oc Lorenzo M.D. Ph.D.; CLIA# [id number] Blood specimen (specimen) 11/09/2019 1:19 PM EST 11/10/2019 8:27 AM EST Narrative Resulting Agency Comment Spec In Lab Froilan Sahni MD LAB SEND OUT LUIZ S[facility] Organization Address City/State/ZIP Co de Phone Number [facility] [place] [phone] documented in this encounter Visit Diagnoses Diagnosis Ulcerative pancolitis without complication Adalimumab (Humira) long-term use Encounter for long-term (current) use of other medications documented in this encounter Care Teams Concierge Relationship Specialty Start Date End Date Marcio Devlin DO [address] [place] [address] PCP - General Family Medicine 11/11/17 documented as of this encounter
--- OUTSIDE RECORDS SUMMARY | 2024-10-04 16:08 | XMS_ITS | Encounter Summary ---
Author Organization [facility] [place] [address] Care Team Providers Care Flooring Machine Operator Name Role Phone Marcio Devlin DO Primary Care Provider Reason for Visit * Reason Comments Specialty Pharmacy Review adalimumab 40 mg/0.4 mL Encounter Details Date Type Department Care Team (Late st Contact Info) Description 08/07/2020 Specialty [place] [phone] Herminio Diehl Social History Tobacco Use Types [...] AM EST Hospital Encounter Non-Invasive [place] [address] Arrived 11/12/2024 8:00 AM EST Appointment Mammography/[place] [address] Gabe Fong MD [facility] [place] [address] 11/30/2024 2:30 PM EDT Office [place] [address] Gabe Fong MD [facility] [place] [address] 12/07/2024 2:30 PM EDT TH Visit (TeleHealth) [place] [address] Rosemarie Morrow APRN [facility] [place] [address] documented as of this encounter Visit Diagnoses Not on filedocumented in this encounter Care Teams Flooring Machine Operator Relationship Specialty Start Date End Date Marcio Devlin DO [address] [place] [address] PCP - General Family Medicine 11/11/17 documented as of this encounter
--- OUTSIDE RECORDS SUMMARY | 2024-10-04 16:09 | XMS_ITS | Encounter Summary ---
[place] [address] Care Team Providers Care Inspector Wire Products Name Role Phone Marcio Devlin DO Primary [...] Expiration Date Visits Re quested Visits Authorized [id number] 1 1 Encounter Details Date Type Department Care Team (Late Contact Info) Description 03/10/2018 7:42 AM EDT Anesthesia [place] [phone] Waylon Power MD Cobb, Ginger Graff, BUSINESS OBJECTS ARCHITECT [address] [facility], B3-1 [place] [address] Anesthesia Record Procedure Summary Procedure Name Responsible Anesthesiologist Anesthesia Start Time Anesthesia Stop Time HYSTERECTOMY, VAGINAL, REMOVAL TUBE(S) & OR OVARY(S) ([facility] (Uterus) Waylon Power MD 03/10/18 0742 03/10/18 1125 Events Date Time Event Comment 03/10/2018 0728 0742 AN Verify 0742 Start 0742 An Start Data 0750 An Induction 0803 An Intubation 0810 Anesthesia Ready 0831 Break/Relief In Gracie vale, DISTRICT ADVISER 0852 Break/Relief Out 1101 Extubation/LMA Out 1115 [...] Peyton Rodriguez RN 03/11/18 0550 by Carmencita Waters RN (RETIRED) Peripheral IV Line - Single Lumen 03/10/18; 0711; basilic vein (medial side of arm), left; [id number]-fbi-[id number] catheter system; 20 gauge; Lorelei Mederos; distraction, [...] Horton MD - 03/10/2018 11:35 AM EDT [facility] Department of Anesthesiology Post-procedure Note Patient: Kim Funes Procedure Summary Date Anesthesia Start Anesthesia Stop Room / Location 03/10/[address] [place] [address] OR [facility] MAIN OR Procedure Diagnosis Surgeon Responsible Provider HYSTERECTOMY, VAGINAL, REMOVAL TUBE(S) & OR OVARY(S) (WRVU 15.94) (N/A Uterus); COLPORRHAPHY ANTERIOR-POSTERIOR; INC CYSTOURETHROSCOPY (WRVU 14.44) (N/A ); URETHRAL SUSPENSION, SLING\FASCIA OR SYNTHETIC (WRVU 12.13) (N/A Pelvis); COLPOPEXY, VAGINAL, INTRAPERITONEAL APPROACH (WRVU 11.66) (N/A ) (UTERINE PROLAPSE, STRESS URINARY INCONTINENCE) Liang Fong MD Kendall, Geoffrey L, MD All Anesthesia Providers: Anesthesiologist: Waylon Power MD Propellant Charge Loader: Alexis Horton MD Most Recent Vitals: 03/10/18 1315 BP: Pulse: Resp: Temp: SpO2: 97% Pain 3 (03/10/18 1340) Patient Location: PACU/[facility] Level of Consciousness: Conscious but Sleepy [...] last colonoscopy 09/19/08 (Dr. Shady Luz at [facility]) for surveillance for dysplasia. Areas of [...] YAQUELIN ESTRADA at [facility] ENDOSCOPY ??? PRO COLONOSCOPY, BIOPSY N/A 03/04/2017 COLONOSCOPY FLEXIBLE, WITH BX (WRVU 3.66) performed by Raúl Austin MD at [facility] ENDOSCOPY ??? PRO COLONOSCOPY, REMV LESN, SNARE 01/02/2011 COLONOSCOPY, POLYPECTOMY, REMOVAL LESION BY SNARE performed by YAQUELIN ESTRADA at [facility] ENDOSCOPY ??? PRO COLONOSCOPY, REMV LESN, SNARE N/A 03/04/2017 COLONOSCOPY, POLYPECTOMY, REMOVAL LESION BY SNARE (WRVU 4.67) performed by Raúl Austin MD at [facility] ENDOSCOPY ??? SALPINGECTOMY Social History Substance Use [...] no anesthesia since. Was Patient Seen in [facility]? Yes Additional/Outside Data Requested? No Findings, Assessment and Action: Ms. Funes is a 57 y.o. year old female seen in [facility] prior to planned vaginal hysterectomy/lap sling with [...] tolerance is moderate. 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 I will alert the manager floor of her hx of difficult airway so preparations can be in place ahead of her surgery. Ginger Spring APRN Pre-Admission Testing [phone] documented in this encounter Plan of Treatment Upcoming Encounters Date Type Department Care Team (Late st Contact Info) Description 10/16/2024 10:00 AM EST Hospital Encounter Non-[place] [address] Arrived 11/12/2024 8:00 AM EST Appointment Mammography/[place] [address] Gabe Fong MD [facility] [address] [place] [address] 11/30/2024 2:30 PM EDT Office [place] [address] Gabe Fong MD [facility] [address] [place] [address] 12/07/2024 2:30 PM EDT TH Visit (TeleHealth) [place] [address] Rosemarie Morrow APRN [facility] [place] [address] documented as of this encounter Visit Diagnoses [...] mg documented in this encounter Care Teams Inspector Wire Products Relationship Specialty Start Date End Date Marcio Devlin DO [address] [place] [address] PCP - General Family Medicine 11/11/17 documented as of this encounter
--- OUTSIDE RECORDS SUMMARY | 2024-10-04 16:09 | XMS_ITS | Encounter Summary ---
[place] [address] Care Team Providers Care Production Service Manager Name Role Phone Marcio Devlin DO Primary Care Provider [phone] Reason for Visit * Reason Onset Date Comments Prior Authorization 02/23/2019 Humira Encounter Details Date Type Department Care Team (Late st Contact Info) Description 02/23/2019 [place] [phone] Dennis Solorzano CPHT Prior Authorization (Humira) Social [...] REQUIREMENT: Must Fill With [facility] CASE/REFERENCE # [id number] APPROVAL NOTIFICATION RECEIVED VIA: Telephone COPAY: COPAY ASSISTANCE NEEDED?: NOTES: * Telephone Encounter - Alana Recio - 02/24/2019 8:24 AM EDT Received fax from [employer] stating: Plan reviews are not handled by [employer] Please call [phone] for the PA Autofax * Telephone Encounter - Dennis Solorzano CPHT - 02/23/2019 9:05 AM EDT [facility], Medication Prior Authorization Patient: Kim Funes Patient : 1960 Patient Address: [address] [place] [phone] (home) Medication: Humira Subscriber Insurance: Startups Physician: Nico Campbell Sent Via: Fax Truong: Eda/Harmeet/YURIY#: Medication Strength Frequency Requested: Humira 40 mg/0.4 ml PNKT Inject 40 mg (1 Pen) Subcutaneously Every 14 Days Qty/Day Supply: New Start: No Diagnosis & ICD-10 Code: Ankylosing Spondylitis M45.9 documented in this encounter Plan of Treatment Upcoming Encounters Date Type Department Care Team ([facility] st Contact Info) Description 10/16/2024 10:00 AM EST Hospital Encounter Non-Invasive Cardiology Lab [place] [address] Arrived 11/12/2024 8:00 AM EST Appointment Mammography/DXA at [place] [address] Gabe Fong MD [facility] [place] [address] 11/30/2024 2:30 PM EDT Office Visit Rheumatology at [place] [address] Gabe Fong MD [facility] [place] [address] 12/07/2024 2:30 PM EDT TH Visit (TeleHealth) [place] [address] Rosemarie Morrow APRN [facility] [place] [address] documented as of this encounter Visit Diagnoses Not on filedocumented in this encounter Care Teams Production Service Manager Relationship Specialty Start Date End Date Marcio Devlin DO [address] [place] [address] PCP - General Family Medicine 11/11/17 documented as of this encounter
--- OUTSIDE RECORDS SUMMARY | 2024-10-04 16:09 | XMS_ITS | Encounter Summary ---
Author Organization [place] [address] Care Team Providers Care Supervisor Statement Clerks Name Role Phone Marcio Devlin DO Primary Care Provider [phone] Reason for Visit * Reason Onset Date Comments Medication Refill 10/08/2018 Encounter Details Date Type Department Care Team (Late st Contact Info) Description 10/08/2018 Ref[place] [phone] Mark Good, RN Ankylosing spondylitis of cervical [...] AM EST Hospital Encounter [place] [address] Arrived 11/12/2024 8:00 AM EST Appointment Mammography/DXA at [address] Gabe Fong MD [facility] [place] [address] 11/30/2024 2:30 PM EDT Office [place] [address] Gabe Fong MD [facility] [place] [address] 12/07/2024 2:30 PM EDT TH Visit (TeleHealth) Gastroenterology at [place] [phone] Rosemarie Morrow, SKIP [facility] [place] [address] documented as of this encounter Visit Diagnoses Diagnosis Ankylosing spondylitis of cervical region Ankylosing spondylitis documented in this encounter Care Teams Supervisor Statement Clerks Relationship Specialty Start Date End Date Marcio Devlin DO [address] [place] [address] PCP - General Family Medicine 11/11/17 documented as of this encounter
--- OUTSIDE RECORDS SUMMARY | 2024-10-04 16:09 | XMS_ITS | Encounter Summary ---
Author Organization [facility] [place] [address] Care Team Providers Care Services Engineer Name Role Phone Marcio Devlin DO Primary Care Provider [phone] Encounter Details Date Type Department Care Team (Late st Contact Info) Description 10/09/2018 [place] [address] Nico Campbell DO Ankylosing spondylitis of cervical region Social History [...] Notes * Telephone Encounter - Mai Rendon RPH - 10/09/2018 10:08 AM EST Specialty Pharmacy Referral; Mai Rendon RPH Transfer of Services Kim Funes [address] [facility] [address] Telephone Information: [facility] has received a prescription for Humira for patient Ms. Kim Funes 58 y.o. (1960). Due to a mandate from the patient's insurer, the prescription needs to be filled with [facility]. Spoke with patient to notify of this change and provided numberto reach the new filling pharmacy. A copy of patient's medication profile was offered to the accepting pharmacy. Additional instructions provided to patient about transfer: no The patient has been advised to call the [facility] at [phone] with any questions or concerns on this referral. Thank you, Mai Rendon RPH 10/09/18 10:09 AM Patient understands no changes to current drug regimen were made at this time. documented in this encounter Plan of Treatment Upcoming Encounters Date Type Department Care Team (Late st Contact Info) Description 10/16/2024 10:00 AM EST Hospital Encounter Non-[place] [address] Arrived 11/12/2024 8:00 AM EST Appointment Mammography/[place] [address] Gabe Fong MD [facility] [place] [address] 11/30/2024 2:30 PM EDT Office Visit Rheumatology at [place] [phone] Gabe Fong MD [facility] [place] [address] 12/07/2024 2:30 PM EDT TH Visit (TeleHealth) Gastroenterology at [place] [phone] Rosemarie Morrow APRN [facility] [place] [address] documented as of this encounter Visit Diagnoses Diagnosis Ankylosing spondylitis of cervical region Ankylosing spondylitis documented in this encounter Care Teams Services Engineer Relationship Specialty Start Date End Date Marcio Devlin DO [address] [place] [address] PCP - General Family Medicine 11/11/17 documented as of this encounter
--- OUTSIDE RECORDS SUMMARY | 2024-10-04 16:09 | XMS_ITS | Encounter Summary ---
Author Organization [facility] [place] [address] Care Team Providers Care Trailer Body Assembler Name Role Phone Marcio Devlin DO Primary Care Provider [phone] Reason for Referral * Diagnostic Test (Routine) - Closed Specialty Diagnoses / Procedures Referred By Contac t Referred To Contact Radiology Diagnoses Ankylosing spondylitis, unspecified site of spine Procedures DXA Central-Spine, Hip, And/Or Whole Body (Generic) Nico Campbell DO [facility] [place] [address] [facility] Rad Xray [address] [place] [address] [place] [address] Referral ID Status Reason Start Date Expiration Date V isits Requested Visits Authorized [id number] Closed Specialty Service Requested 08/31/2018 08/31/2019 1 1 Encounter Details Date Type Department Care Team (Late st Contact Info) Description 08/31/2018 10:30 AM EST Office Visit Rheumatology at [facility] [place] [address] Nico Campbell DO Ankylosing spondylitis, unspecified site of spine (Primary [...] encounter Progress Notes * Nico Campbell, - 08/31/2018 11:00 AM EST Rheumatology Outpatient Clinic Follow-up Visit PCP: Marcio Devlin, [address] [place] [address] Rheumatological History: 1. UC associated Ankylosing Spondylitis [...] -Continue current meds: 1) Humira 40 mg [id number] 2) SZS 1000 mg BID -Check labs: [...] AM EST Hospital Encounter [place] [address] Arrived 11/12/2024 8:00 AM EST Appointment Mammography/[place] [address] Gabe Fong MD [facility] [address] [id number] 11/30/2024 2:30 PM EDT Office [place] [address] Gabe Fong MD [facility] [place] [address] 12/07/2024 2:30 PM EDT TH Visit (TeleHealth) [place] [address] Rosemarie Morrow APRN [facility] [place] [address] documented as of this encounter [...] BMD measurements and plots are available in Liquipel under the imaging tab. Paper copies will be sent to providers without EDatameer access. If you have received this report without the data sheet and do not have access to Liquipel, please contact Radiology Acid Etch Operator at [phone] Friday thru Friday 8am-4pm. Thank you for letting us participate in the care of this patient. For questions regarding this report, please contact the number below. ? Electronically signed by: STEWART Fernandez [facility] ([phone]), at 06/02/2019 5:54 PM Narrative 06/02/2019 5:54 PM EDT EXAMINATION: DXA [...] BMD measurements and plots are available in EDatameerunder the imaging tab. Paper copies will be sent to providers without EDatameer access.If you have received this report without the data sheet and do not haveaccess to [employer], please contact Radiology Acid Etch Operator at [phone] Friday 8am-4pm. Thank you for letting us participate in the care of this patient. Forquestions regarding this report, please contact the number below. Oc Gresham MD IMG DEXA ORDERABLES * Differential, Automated (08/31/2018 11:34 AM EST) Neutrophil % 46.1 % [facility] Neutrophil Absolute 2.91 1.70 - 6.10 x10(3)/[facility] LABORATORY Lymph % 43.5 % [facility] Lymphocytes Abs 2.8 0.9 - 3.2 x10(3)/[facility] LABORATORY Monocyte % 7.4 % [facility] Monocyte Abs 0.5 0.3 - 0.9 x10(3)/[facility] LABORATORY Eos % 2.2 % [facility] Eosinophils Abs 0.1 0.0 - 0.4 x10(3)/[facility] LABORATORY Basophil % 0.6 % [facility] Baso Absolute 0.0 0.0 - 0.1 x10(3)/[facility] LABORATORY Immature Gran % 0.20 % [facility] Comment: Immature granulocytes(IG's)percentage and absolute count will include metamyelocytes, myelocytes, and promyelocytes. Blood smears from CBCs yielding IG's will be scanned manually for concordance. If this scan disagrees with the automated IG or if promyelocytes are noted, a manual differential will be performed. Immature Gran Absolute 0.01 0.00 - 0.04 x10(3)/[facility] LABORATORY Blood specimen (specimen) 08/31/2018 11:34 AM EST 08/31/2018 11:47 AM EST Narrative Resulting Agency Comment Spec In Lab Nico Campbell DO HEMATOLOGY ORDERABLE S [facility] [place] [address] * Hemogram (08/31/2018 11:34 AM EST) [facility] White Blood Cell 6.3 4.0 - 9.5 x10(3)/[facility] LABORATORY Red Blood Cell 4.76 4.00 - 5.21 x10(6)/[facility]ORY Hemoglobin 14.6 11.7 - 15.5 gm/dL [facility] Hematocrit 44.5 35.7 - 45.8 % [facility] Mean Cell Volume 93.5 82.6 - 94.4 fL [facility] Mean Cell Hemoglobin 30.7 27.1 - 32.0 pg [facility] Mean Cell Hemoglobin Concentration 32.8 31.7 - 35.0 gm/dL [facility] Platelet 184 145 - 357 x10(3)/[facility] LABORATORY RDW Standard Deviation 44.2 37.0 - 46.0 [facility] LABORATORY RDW coefficient of variation 13.0 11.5 - 14.1 % [facility] Mean Platelet Volume 11.0 7.6 - 12.9 fL [facility] NRBC% auto 0.0 % [facility] NRBC Absolute 0.000 0.000 - 0.000 x10(3)/[facility] Blood specimen (specimen) 08/31/2018 11:34 AM EST 08/31/2018 11:47 AM EST Narrative Resulting Agency Comment Spec In Lab Nico Campbell DO HEMATOLOGY ORDERABLE S [facility] [place] [address] * Comprehensive metabolic panel (non-fasting) (08/31/2018 11:34 AM EST) [facility] Glucose 151 65 - 199 mg/dL [facility] [...] of body mass or the acutely ill. [email or web address]/DHMCnkf eGFR 86 >=60 mL/min/1. 73 m?? [facility] Comment: The eGFR was calculated using the CKD-EPI equation. As with all creatinine based estimates of kidney function, eGFR values calculated with the CKD-EPI equation are not accurate in patients with acute kidney failure, extremes of body mass or the acutely ill. http://[employer]/DHMCnkf Blood specimen (specimen) 08/31/2018 11:34 AM EST 08/31/2018 11:47 AM EST Narrative Resulting Agency Comment Spec In Lab Oc Gresham MD CHEMISTRY ORDERABLES Performing Organization Address City/State/[facility] Co de Phone Number [facility] [place] [address] documented in this encounter Visit Diagnoses Diagnosis Ankylosing spondylitis, unspecified site of spine- Primary Ankylosing spondylitis, unspecified site of spine documented in this encounter Care Teams Trailer Body Assembler Relationship Specialty Start Date End Date Marcio Devlin DO [address] [place] [address] PCP - General Family Medicine 11/11/17 documented as of this encounter
--- OUTSIDE RECORDS SUMMARY | 2024-10-04 16:09 | XMS_ITS | Encounter Summary ---
Author Organization [facility] [place] [address] Care Team Providers Care Tailer In Name Role Phone Marcio Devlin DO Primary Care Provider [phone] Reason for Visit * Auth/Cert Specialty Diagnoses / Procedures Referred By Missy t Referred To Contact Diagnoses Uterine prolapse RADHA [...] Expiration Date Visits Re quested Visits Authorized [id number] 1 1 Encounter Details Date Type Department Care Team (Latest Contact Info) Description 03/10/2018 6:02 AM EDT - 03/11/2018 8:53 AM EDT Hospital Encounter [place] [address] Liang Fong MD Uterovaginal prolapse, incomplete; Urinary, incontinence, stress female [...] Kim Funes Patient Age: 57 y.o. Language: Sudanese Race: White Ethnicity: Not nor Admit date: 03/10/2018 Discharge date and time: 03/11/2018 Attending Physician: Liang Fong MD Discharge Physician: Liang Fong MD Follow-up Recommendations for Providers: Follow up appointment: 04/21/18 at 1:[address] Fong Inpatient Provider Contact Information: Female Pelvic Medicine and Reconstructive Surgery Department of Obstetrics and Gynecology [phone] Discharge Diagnoses (Hospital Problems) and Secondary Diagnoses [...] to snk spond so was referred [facility] for anesthesia to [...] 1000 mg Refills: 0 SUMAtriptan 20 mg/actuation [place] Commonly known as: IMITREX 1 spray as [...] in with the urogynecology office nurse at [phone] to review how your bladder is working and when the catheter use can be discontinued. For problems or concerns related to this hospitalization call: [phone] weekdays, or [phone] weekends or nights. Call your doctor if [...] Liang Fong MD Obstetrics and Gynecology at [place] [phone] 08/31/2018 11:00 AM Nico Campbell DO Rheumatology at [place] [phone] Discharge References/Attachments None Provider Contact Information: Marcio Devlin DO [phone] documented in this encounter Discharge Instructions * [...] in with the urogynecology office nurse at [phone] to review how your bladder is working and when the catheter use can be discontinued. For problems or concerns related to this hospitalization call: [phone] weekdays, or [phone] weekends or nights. Call your doctor if [...] by mouth daily. SUMAtriptan (IMITREX) 20 mg/actuation [place], Non-Aerosol 1 spray as needed. 11/03/2017 metFORMIN [...] output FEK: D/c IVF. Tolerating PO intake. 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 -Follow up in [...] history. She is Post-operative day #1 from [facility], [facility], [place]. Retropubic MUS, cysto. I have reviewed [...] intake. 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 -Follow up in clinic 4-6 weeks postoperatively Endocrine: DM II - sensitive SSI ordered ID: Afebrile, received prophylactic antibiotics preop, no evidence of infection -continue to monitor vital signs. Prophylaxis: SCDs while in bed, encourage ambulation, incentive spirometry Dispo: Anticipate discharge tomorrow Code Status: Full Code Jason Stapleton MD PGY-2 03/10/2018 Gynecology Service Pager: [phone] ([phone] [phone]), otherwise page [phone] * Aleta Croft, RN - 03/10/2018 11:25 AM EDT Pt arrived from OR to PACU. Placed on monitor and alarms adjusted. Received report.1225: infor visit. documented in this encounter H&P Notes * Victorina Becker - 03/10/2018 6:30 AM EDT Inpatient HEALTH EDUCATION ASSISTANT - Admission Interval Note I have reviewed [...] Outcome: Outcome (s) achieved Date Met: 03/11/18 03/11/1872503/11/18 08 Activity Activity Type ambulated in [facility] -- [...] Outcome (s) achieved Date Met: 03/11/18 03/11/18 07 Safety Interventions Isolation Precautions standard precautions maintained [...] Conf Outcome: Ongoing (Interventions Implemented as Appropriate) 03/11/18 0433 Interdisciplinary Rounds/Family Conf Participants nursing;patient * Op Note - Liang Fong MD - 03/10/2018 11:21 AM EDT [facility] Operative Note Patient Name: Kim Funes : [id number] MR#: [id number] Case Date: 03/10/2018 Surgeon: Surgeon(s) and Role: [...] the cervical portio with 1% lidocaine with [id number] Epinephrine solution. A weighted speculum had been [...] defect, and this was reapproximated with a bszynu-sh-owllt 0Vicryl suture in interrupted fashion. After the [...] Operative Note Patient Name: Kim Funes : [id number] MR#: [id number] Case Date: 03/10/2018 Surgeon: Surgeon(s) and Role: [...] AM EST Hospital Encounter [place] [address] Arrived 11/12/2024 8:00 AM EST Appointment Mammography/[place] [address] Gabe Fong MD [facility] [place] [address] 11/30/2024 2:30 PM EDT Office Visit Rheumatology at [place] [phone] Gabe Fong MD [facility] [place] [address] 12/07/2024 2:30 PM EDT TH Visit (TeleHealth) Gastroenterology at [place] [phone] Rosemarie Morrow APRN [facility] [place] [address] documented as of this encounter Procedures Procedure Name Priority Date/Time Associated Diagnosis Comments SENIOR SYSTEMS ARCHITECT SCAN 03/12/2018 12:00 AM EDT POCT GLUCOSE [...] in this encounter Results * SCAN DOC: SENIOR SYSTEMS ARCHITECT (03/12/2018 12:00 AM EDT) Anatomical Region Laterality Modality Other Narrative 03/12/2018 12:00 AM EDT Ordered by an unspecified provider. Scanning Provider MEDIA MGR SCAN EXT O RDR/RSLT * POCT Glucose (03/11/2018 7:16 AM EDT) Glucose, POC 121 65 - 199 mg/dL [facility] Comment: Supplemental ranges: <140 mg/dL before meals <180 mg/dL all other times of the day Blood specimen (specimen) 03/11/2018 7:16 AM EDT 03/11/2018 7:16 AM EDT Liang Fong MD POINT OF CARE TEST O RDERABLES [facility] [place] [address] * POCT Glucose (03/10/2018 9:20 PM EDT) Glucose, POC 107 65 - 199 mg/dL [facility] Comment: Supplemental ranges: <140 mg/dL before meals <180 mg/dL all other times of the day Blood specimen (specimen) 03/10/2018 9:20 PM EDT 03/10/2018 9:20 PM EDT Liang Fong MD POINT OF CARE TEST O IRMA Performing Organization Address City/[facility]/ZIP Co de Phone Number [facility] [place] [address] * POCT Glucose (03/10/2018 4:39 PM EDT) Glucose, POC 110 65 - 199 mg/dL [facility] Comment: Supplemental ranges: <140 mg/dL before meals <180 mg/dL all other times of the day Blood specimen (specimen) 03/10/2018 4:39 PM EDT 03/10/2018 4:39 PM EDT Linag Fong MD POINT OF CARE TEST O IRMA Performing Organization Address [facility] Co de Phone Number [facility] [place] [address] * POCT Glucose (03/10/2018 11:23 AM EDT) Glucose, POC 137 65 - 199 mg/dL [facility] Comment: Supplemental ranges: <140 mg/dL before meals <180 mg/dL all other times of the day Blood specimen (specimen) 03/10/2018 11:23 AM EDT 03/10/2018 11:23 AM EDT Liang Fong MD POINT OF CARE TEST O CHYNAERADARLEEN Performing Organization Address City/[facility]/ZIP Co de Phone Number [facility] [place] [address] * Specimen to Pathology (03/10/2018 9:22 AM EDT) AP Specimen 03/10/2018 9:22 AM EDT 03/10/2018 11:02 AM EDT Narrative [facility] - 03/10/2018 11:03 AM EDT Specimen requisition ordered. ??Separate Pathology report to follow Resulting Agency Comment Spec In Lab Liang Fong MD PATHOLOGY/CYTOLOGY O RDERABLES [facility] [place] [address] * Surgical Pathology Report (03/10/2018 9:00 AM EDT) Final Diagnosis [id number] ? Location: [facility]; [facility]; The signing pathologist has (i) examined the [...] Marc Hayes Verified: ??03/16/2018 ?Pathologist Performed at: ??-[facility] Dept. of Pathology, [place], [place] CLINICAL INFORMATION Specimen Submitted: A - [...] nodules. (R5) nsm 03/16/2018 2:03 PM EDT [facility] Uterine Corpus 03/10/2018 9: 00 AM EDT 03/10/2018 9:00 AM EDT Liang Fong MD PATHOLOGY/CYTOLOGY Clotilde SOLIS Performing Organization Address [facility] Co de Phone Number [facility] [place] [address] * POCT Glucose (03/10/2018 6:28 AM EDT) Glucose, POC 107 65 - 199 mg/dL [facility] Comment: Supplemental ranges: <140 mg/dL before meals <180 mg/dL all other times of the day Blood specimen (specimen) 03/10/2018 6:28 AM EDT 03/10/2018 6:28 AM EDT Liang Fong MD POINT OF CARE TEST O IRMA Performing Organization Address City/[facility]/ZIP Co de Phone Number [facility] [place] [address] documented in this encounter Visit Diagnoses Diagnosis [...] Chantell Moy RN)2024 (Given - Provider: Carmencita Waters, FRANCESCA) 0824 [...] RN) 0006 (Given - Provider: Carmencita Waters, FRANCESCA)0549 (Given - Provider: Carmencita Waters, FRANCESCA) metoprolol succinate (TOPROL-XL) XL tablet 100 mg [...] Comment: iv infusing)2023 (Given - Provider: Carmencita Waters, FRANCESCA) 0900 (Not Given - Provider: Chantell Moy [...] Moy, FRANCESCA) 0624 (Stopped - Provider: Carmencita Wtaers RN) PRN Medication Order 03/09/2018 03/10/2018 03/11/2018 [...] Routine documented in this encounter Care Teams Tailer In Relationship Specialty Start Date End Date Marcio Devlin DO [facility] [place] [place] [address] PCP - General Family Medicine 11/11/17 documented as of this encounter
--- OUTSIDE RECORDS SUMMARY | 2024-10-04 16:09 | XMS_ITS | Encounter Summary ---
Author Organization [facility] [place] [address] Care Team Providers Care Delivery Driver/Customer Service Name Role Phone Marcio Devlin DO Primary Care Provider [phone] Encounter Details Date Type Department Care Team (Late st Contact Info) Description 02/24/2018 3:00 PM EDT Office [place] [address] Social History Tobacco Use Types [...] Encounter Non-[place] [address] Arrived 11/12/2024 8:00 AM EST Appointment Mammography/DXA at [address] Gabe Fong MD [facility] [place] [address] 11/30/2024 2:30 PM EDT Office [place] [address] Gabe Fong MD [facility] [place] [address] 12/07/2024 2:30 PM EDT TH Visit (TeleHealth) [place] [address] Rosemarie Morrow, SKIP [facility] [place] [address] documented as of this encounter Visit Diagnoses Not on filedocumented in this encounter Care Teams Delivery Driver/Customer Service Relationship Specialty Start Date End Date Marcio Devlin DO [address] [place] [address] PCP - General Family Medicine 11/11/17 documented as of this encounter
--- OUTSIDE RECORDS SUMMARY | 2024-10-04 16:09 | XMS_ITS | Encounter Summary ---
Author Organization Counts Include [facility] Address [facility] [place] [address] Care Team Providers Care Leading Firefighter Name Role Phone Marcio Devlin DO Primary Care Provider [phone] Encounter Details Date Type Department Care Team (Latest Contact Info) Description 02/23/2019 6:48 AM EDT - 02/23/2019 11:59 PM EDT Hospital Encounter XRay at [address] [place] [address] Glenn Choe MD [facility] [place] [address] Right hip pain; Hx of total hip [...] by mouth daily. SUMAtriptan (IMITREX) 20 mg/actuation [place], Non-Aerosol 1 spray as needed. 11/03/2017 metFORMIN [...] Hospital Encounter Non-[place] [address] Arrived 11/12/2024 8:00 AM EST Appointment Mammography/[place] [address] Gabe Fong MD [facility] [place] [address] 11/30/2024 2:30 PM EDT Office Visit Rheumatology at [place] [phone] Gabe Fong MD [facility] [place] [address] 12/07/2024 2:30 PM EDT TH Visit (TeleHealth) [place] [address] Rosemarie Morrow APRN [facility] [place] [address] documented as of this encounter Procedures Procedure [...] left documented in this encounter Care Teams Leading Firefighter Relationship Specialty Start Date End Date Marcio Devlin DO [address] [place] [address] PCP - General Family Medicine 11/11/17 documented as of this encounter
--- OUTSIDE RECORDS SUMMARY | 2024-10-04 16:09 | XMS_ITS | Encounter Summary ---
Author Organization Formerly [facility] [place] [address] Care Team Providers Care Digital Archivist Name Role Phone Marcio Devlin DO Primary Care Provider [phone] Reason for Visit * Reason Comments Post Op Encounter Details Date Type Department Care Team (Late st Contact Info) Description 04/21/2018 1:40 PM EDT Office Visit Obstetrics [place] [address] Liang Fong MD Post-operative state (Primary Dx) Social History Tobacco [...] incontinence since surgery (y/n): n If yes, [place] Incontinence Severity Index: How often do you [...] with: Event Presence Event Presence NONE n/a Startup Walking Cold Weather Running Anticipation of going [...] test (empty supine): negative External Genitalia: Vulva, [employer] [facility]'s and [place] glands normal, urethra without tenderness [...] EST Hospital Encounter Non-Invasive Cardiology Lab [address] Arrived 11/12/2024 8:00 AM EST Appointment Mammography/DXA at [place] [address] Gabe Fong MD [facility] [place] [address] 11/30/2024 2:30 PM EDT Office Visit Rheumatology at [place] [address] Gabe Fong MD [facility] [place] [address] 12/07/2024 2:30 PM EDT TH Visit (TeleHealth) Gastroenterology at [place] [phone] Rosemarie Morrow APRN [facility] [place] [address] documented as of this encounter Visit Diagnoses Diagnosis Post-operative state- Primary Other postprocedural status documented in this encounter Care Teams Digital Archivist Relationship Specialty Start Date End Date Marcio Devlin DO [address] [place] [address] PCP - General Family Medicine 11/11/17 documented as of this encounter
--- OUTSIDE RECORDS SUMMARY | 2024-10-04 16:09 | XMS_ITS | Encounter Summary ---
Author Organization [facility] [place] [address] Care Team Providers Care Lockstitch Front Maker Name Role Phone Marcio Devlin DO Primary Care Provider [phone] Encounter Details Date Type Department Care Team (Late st Contact Info) Description 02/24/2018 4:15 PM EDT Office Visit [place] [phone] Nico Campbell DO Ankylosing spondylitis, unspecified site [...] in this encounter Progress Notes * Nico CampbellDO - 02/24/2018 4:15 PM EDT Rheumatology Outpatient Clinic Follow-up Visit PCP: Marcio Devlin DO [address] [place] [address] Rheumatological History: 1. UC associated Ankylosing Spondylitis [...] current medication regimen is Humira 40 mg [id number] and Sulfasalazine 500mg BID-both of which she reports adherence and no ADRs. She has been on these two medications since beginning of 2010??without reported issues. ? Interval History: Pt is a 57 yo female with PMHx of MÉNDEZ and UC with presenting for follow up who has been maintained on Humira and Sulfasalazine since beginning 2010 and has been overall well in [...] to be done when [place] [facility] [place]tests -Will continue current medication [...] AM EST Hospital Encounter Non-[place] [address] Arrived 11/12/2024 8:00 AM EST Appointment Mammography/[place] [address] Gabe Fong MD [facility] [place] [address] 11/30/2024 2:30 PM EDT Office [place] [address] Gabe Fong MD [facility] [place] [address] 12/07/2024 2:30 PM EDT TH Visit (TeleHealth) [place] [address] Rosemarie Morrow, AREA INTELLIGENCE TECHNICIAN [facility] [place] [address] documented as of this encounter Visit Diagnoses Diagnosis Ankylosing spondylitis, unspecified site of spine- Primary documented in this encounter Care Teams Lockstitch Front Maker Relationship Specialty Start Date End Date Marcio Devlin DO [address] [address] PCP - General Family Medicine 11/11/17 documented as of this encounter
--- OUTSIDE RECORDS SUMMARY | 2024-10-04 16:09 | XMS_ITS | Encounter Summary ---
[place] [address] Care Team Providers Care Graduate Teaching Assistant Name Role Phone Marcio Devlin DO Primary Care Provider [phone] Encounter Details Date Type Department Care Team (Late st Contact Info) Description 02/19/2019 Refill [place] [address] Nico Campbell DO Social History Tobacco Use Types Packs/Day Years [...] AM EST Hospital Encounter Non-[place] [address] Arrived 11/12/2024 8:00 AM EST Appointment Mammography/[place] [address] Gabe Fong MD [facility] [place] [address] 11/30/2024 2:30 PM EDT Office [place] [address] Gabe Fong MD [facility] [place] [address] 12/07/2024 2:30 PM EDT TH Visit (TeleHealth) [place] [address] Rosemarie Morrow, SKIP [facility] [place] [address] documented as of this encounter Visit Diagnoses Not on filedocumented in this encounter Care Teams Graduate Teaching Assistant Relationship Specialty Start Date End Date Marcio Devlin DO [address] [place] [address] PCP - General Family Medicine 11/11/17 documented as of this encounter
--- OUTSIDE RECORDS SUMMARY | 2024-10-04 16:09 | XMS_ITS | Encounter Summary ---
Author Organization [facility] [place] [address] Care Team Providers Care Roll Carrier Name Role Phone Marcio Devlin DO Primary Care Provider [phone] Reason for Referral * Diagnostic Test (Routine) - Closed Specialty Diagnoses / Procedures Referred By Contac t Referred To Contact Radiology Diagnoses Ankylosing spondylitis, unspecified site of spine Procedures DXA Central-Spine, Hip, And/Or Whole Body (Generic) Nico Campbell [facility] [place] [address] [facility] [address] [place] [address] [place] [address] Referral ID Status Reason Start Date Expiration Date V isits Requested Visits Authorized [id number] Closed Specialty Service Requested 08/31/2018 08/31/2019 1 1 Reason for Visit * Diagnostic Test (Routine) - Closed Specialty Diagnoses / Procedures Referred By Contac t Referred To Contact Radiology Diagnoses Ankylosing spondylitis, unspecified site of spine Procedures DXA Central-Spine, Hip, And/Or Whole Body (Generic) Nico Campbell [facility] [place] [address] [facility] Rad Xray [address] [place] [address] [place] [address] Referral ID Status Reason Start Date Expiration Date V isits Requested Visits Authorized [id number] Closed Specialty Service Requested 08/31/2018 08/31/2019 1 1 Encounter Details Date Type Department Care Team (Latest Contact Info) Description 06/01/2019 12:55 PM EDT - 06/01/2019 11:59 PM EDT Hospital Encounter XRay at [address] [place] [address] Oc Gresham MD [facility] [place] [address] Ankylosing spondylitis, unspecified site of spine Discharge [...] by mouth daily. SUMAtriptan (IMITREX) 20 mg/actuation [place], Non-Aerosol 1 spray as needed. 11/03/2017 metFORMIN [...] AM EST Hospital Encounter Non-[place] [address] Arrived 11/12/2024 8:00 AM EST Appointment Mammography/[place] [address] Gabe Fong MD [facility] [place] [address] 11/30/2024 2:30 PM EDT Office Visit Rheumatology at [place] [phone] Gabe Fong MD [facility] [place] [address] 12/07/2024 2:30 PM EDT TH Visit (TeleHealth) [place] [address] Rosemarie Morrow APRN [facility] [place] [address] documented as of this encounter [...] BMD measurements and plots are available in [employer] under the imaging tab. Paper copies will be sent to providers without [employer] access. If you have received this report without the data sheet and do not have access to [employer], please contact Radiology Counterintelligence/Humint Specialist at [phone] Friday thru Friday 8am-4pm. Thank you for [...] up to 2015 DEXA for osteopenia, ,entered byordering service TECHNIQUE: [...] BMD measurements and plots are available in [employer] Mediaunder the imaging tab. Paper copies will be sent to providers without ENT Surgical access.If you have received this report without the data sheet and do not haveaccess to E-, please contact Radiology Counterintelligence/Humint Specialist at [phone] Friday thruFriday 8am-4pm. Thank you for letting us participate in the care of this patient. Forquestions regarding this report, please contact the number below. Oc Gresham MD IMG DEXA ORDERABLES documented in this encounter Visit Diagnoses Diagnosis Ankylosing spondylitis, unspecified site of spine documented in this encounter Care Teams Roll Carrier Relationship Specialty Start Date End Date Marcio Devlin DO [address] [place] [address] PCP - General Family Medicine 11/11/17 documented as of this encounter
--- OUTSIDE RECORDS SUMMARY | 2024-10-04 16:09 | XMS_ITS | Encounter Summary ---
Author Organization Formerly [facility] [place] [address] Care Team Providers Care Cyber Software Engineer Name Role Phone Marcio Devlin DO Primary Care Provider [phone] Reason for Referral * Consultation (Routine) - Closed Specialty Diagnoses / Procedures Referred By Missy escalera Referred To Contact Orthopaedics Diagnoses Primary osteoarthritis of both hips Primary osteoarthritis of both hips Nico Campbell DO [facility] [place] [address] [facility] [address] [place] [phone] Referral ID Status Reason Start Date Expiration Date V isits Requested Visits Authorized [id number] Closed Consult, Test & Treat 02/18/2019 02/18/2020 1 1 Encounter Details Date Type Department Care Team (Latest Contact Info) Description 02/18/2019 4:00 PM EDT Office [place] [address] Nico Campbell DO Ankylosing spondylitis, [...] Clinic Follow-up Visit PCP: Marcio Devlin, [address] [place] [address] Rheumatological History: 1. UC associated Ankylosing Spondylitis [...] -Continue current meds: 1) Humira 40 mg [id number] 2) SZS 1000 mg BID -Check labs [...] AM EST Hospital Encounter Non-[place] [address] Arrived 11/12/2024 8:00 AM EST Appointment Mammography/DXA at [address] Gabe Fong MD [facility] [place] [address] 11/30/2024 2:30 PM EDT Office [place] [address] Gabe Fong MD [facility] [address] [place] [address] 12/07/2024 2:30 PM EDT TH Visit (TeleHealth) Gastroenterology at [address] Rosemarie Morrow APRN [facility] [place] [address] Scheduled Referrals Name Type Priority Associated Diagnoses [...] 5:18 PM EDT) Neutrophil % 43.1 % [facility] Neutrophil Absolute 3.79 1.70 - 6.10 x10(3)/ L [facility] Lymph % 42.7 % [facility] Lymphocytes Abs 3.8(H) 0.9 - 3.2 x10(3)/ L [facility] Monocyte % 10.8 % [facility] Monocyte Abs 1.0(H) 0.3 - 0.9 x10(3)/ L [facility] Eos % 2.6 % [facility] Eosinophils Abs 0.2 0.0 - 0.4 x10(3)/ L [facility] Basophil % 0.6 % [facility] Baso Absolute 0.0 0.0 - 0.1 x10(3)/ L [facility] [...] Absolute 0.02 0.00 - 0.04 x10(3)/ L [facility] Blood specimen (specimen) 02/18/2019 5:18 PM EDT 02/18/2019 5:21 PM EDT Narrative Resulting Agency Comment Spec In Lab Nico Shannan TREJO HEMATOLOGY ORDERABLE S [facility] [place] [address] * Hemogram (02/18/2019 5:18 PM EDT) White Blood Cell 8.8 4.0 - 9.5 x10(3)/[facility] Red Blood Cell 4.71 4.00 - 5.21 x10(6)/[facility] Hemoglobin 14.4 11.7 - 15.5 gm/dL [facility] Hematocrit 44.3 35.7 - 45.8 % [facility] Mean Cell Volume 94.1 82.6 - 94.4 fL [facility] Mean Cell Hemoglobin 30.6 27.1 - 32.0 pg [facility] Mean Cell Hemoglobin Concentration 32.5 31.7 - 35.0 gm/dL [facility] Platelet 210 145 - 357 x10(3)/[facility] RDW Standard Deviation 44.7 37.0 - 46.0 [facility] RDW coefficient of variation 13.0 11.5 - 14.1 % [facility] Mean Platelet Volume 10.4 7.6 - 12.9 fL [facility] NRBC% auto 0.0 % [facility] NRBC Absolute 0.000 0.000 - 0.000 x10(3)/[facility] Blood specimen (specimen) 02/18/2019 5:18 PM EDT 02/18/2019 5:21 PM EDT Narrative Resulting Agency Comment Spec In Lab Nico Campbell DO HEMATOLOGY ORDERABLE S [facility] [place] [address] * (ABNORMAL) Comprehensive metabolic panel (non-fasting) (02/18/2019 5:18 PM EDT) Glucose 112 65 - 199 mg/dL [facility] Comment:Diabetes: >=200 mg/d L plus symptoms Blood Urea Nitrogen 20(H) 8 - 18 mg/dL [facility] Creatinine 0.91 0.70 - 1.20 mg/dL [facility] Sodium 144 135 - 145 mmol/L [facility] Potassium 4.4 3.5 - 5.0 mmol/L [facility] [...] mmol/L [facility] Anion Gap 10 5 - 15 mmol/L [facility] Calcium 9.9 8.5 - 10.5 mg/dL [facility] Protein, Total 7.9 6.1 - 8.0 gm/dL [facility] Albumin 4.1 3.2 - 5.2 gm/dL [facility] Aspartate Aminotransferase 23 0 - 30 unit/L [facility] Alanine Aminotransferase 19 0 - 30 unit/L [facility] Alkaline Phosphatase 96 40 - 104 unit/L [facility] Bilirubin, Total 0.2 0.2 - 1.3 mg/dL [facility] Est Glomerular Filtration Rate 70 >=60 mL/min/1. 73 m?? [facility] Comment: The eGFR was calculated using the CKD-EPI equation. As with all creatinine based estimates of kidney function, eGFR values calculated with the CKD-EPI equation are not accurate in patients with acute kidney failure, extremes of body mass or the acutely ill. http://[employer]/DHMCnkf eGFR 81 >=60 mL/min/1. 73 m?? [facility] Comment: The eGFR was calculated using the CKD-EPI equation. As with all creatinine based estimates of kidney function, eGFR values calculated with the CKD-EPI equation are not accurate in patients with acute kidney failure, extremes of body mass or the acutely ill. http://[employer]/DHMCnkf Blood specimen (specimen) 02/18/2019 5:18 PM EDT 02/18/2019 5:21 PM EDT Narrative Resulting Agency Comment Spec In Lab Oc Gresham MD CHEMISTRY ORDERABLES [facility] [place] [address] documented in this encounter Visit Diagnoses Diagnosis Ankylosing spondylitis, unspecified site of spine- Primary Primary osteoarthritis of both hips Primary localized osteoarthrosis, pelvic region and thigh documented in this encounter Care Teams Cyber Software Engineer Relationship Specialty Start Date End Date Marcio Devlin DO [address] [place] [address] PCP - General Family Medicine 11/11/17 documented as of this encounter
--- OUTSIDE RECORDS SUMMARY | 2024-10-04 16:09 | XMS_ITS | Encounter Summary ---
[place] [address] Care Team Providers Care Boilermaker Loftsman Name Role Phone Marcio Devlin DO Primary Care Provider [phone] Encounter Details Date Type Department Care Team (Late st Contact Info) Description 05/31/2019 Specialty [place] [address] Juan Carlos Joseph Social History [...] AM EST Hospital Encounter Non[place] [address] Arrived 11/12/2024 8:00 AM EST Appointment Mammography[place] [address] Gabe Fong MD [facility] [place] [address] 11/30/2024 2:30 PM EDT Office [place] [address] Gabe Fong MD [facility] [place] [address] 12/07/2024 2:30 PM EDT TH Visit (TeleHealth) [place] [address] Rosemarie Morrow APRN [facility] [place] [address] documented as of this encounter Visit Diagnoses Not on filedocumented in this encounter Care Teams Boilermaker Loftsman Relationship Specialty Start Date End Date Marcio Devlin DO [address] [place] [address] PCP - General Family Medicine 11/11/17 documented as of this encounter"
--- OUTSIDE RECORDS SUMMARY | 2024-10-04 16:09 | XMS_ITS | Encounter Summary ---
Author Organization [facility] [place] [address] Care Team Providers Care Sweeper Driver Name Role Phone Marcio Devlin DO Primary Care Provider [phone] Encounter Details Date Type Department Care Team (Late st Contact Info) Description 02/24/2018 2:40 PM EDT [place] [address] Social History Tobacco Use Types [...] labs, pt to meet with [place] DEFENSE ANALYST today Special medication instructions: Procedure date: 03/10/18 Dr Fong documented in this encounter Plan of Treatment Upcoming Encounters Date Type Department Care Team (Late st Contact Info) Description 10/16/2024 10:00 AM EST Hospital Encounter Non-Invasive Cardiology Lab [place] [phone] Arrived 11/12/2024 8:00 AM EST Appointment Mammography/DXA at [address] Gabe Fong MD [facility] [place] [address] 11/30/2024 2:30 PM EDT Office Visit Rheumatology at [place] [address] aGbe Fong MD [facility] [place] [address] 12/07/2024 2:30 PM EDT TH Visit (TeleHealth) [place] [address] Rosemarie Morrow APRN [facility] [place] [address] documented as of this encounter Visit Diagnoses Not on filedocumented in this encounter Care Teams Sweeper Driver Relationship Specialty Start Date End Date Marcio Devlin DO [address] [place] [address] PCP - General Family Medicine 11/11/17 documented as of this encounter
--- OUTSIDE RECORDS SUMMARY | 2024-10-04 16:09 | XMS_ITS | Encounter Summary ---
Author Organization Formerly [facility], [facility] [place] [address] Care Team Providers Care Nailhead Setter Name Role Phone Marcio Devlin DO Primary Care Provider [phone] Reason for Visit * Reason Comments Follow-up Encounter Details Date Type Department Care Team (Late st Contact Info) Description 06/01/2019 2:30 PM EDT Office [place] [address] Gabe Fong MD [facility] [place] [address] High risk medication use; Inflammatory arthropathy; Morning [...] Follow-up Note PCP: Marcio Devlin DO [address] [facility] [address] [place] [address] Rheumatological History: 1. UC associated Ankylosing Spondylitis [...] -Continue current meds: 1) Humira 40 mg [id number] 2) SZS 1000 mg BID -Check labs [...] EST Hospital Encounter Non-[place] [phone] Arrived 11/12/2024 8:00 AM EST Appointment Mammography/[place] [phone] Gabe Fong MD [facility] [place] [address] 11/30/2024 2:30 PM EDT Office [place] [phone] Gabe Fong MD [facility] [place] [address] 12/07/2024 2:30 PM EDT TH Visit (TeleHealth) [place] [phone] Rosemarie Morrow APRN [facility] [place] [address] documented as of this encounter Procedures Procedure [...] 3:22 PM EDT) Neutrophil % 51.6 % [facility] Neutrophil Absolute 5.62 1.70 - 6.10 x10(3)/mc L [facility] Lymph % 34.7 % [facility] Lymphocytes Abs 3.8(H) 0.9 - 3.2 x10(3)/ L [facility] Monocyte % 9.9 % [facility] Monocyte Abs 1.1(H) 0.3 - 0.9 x10(3)/[facility] Eos % 3.0 % [facility] Eosinophils Abs 0.3 0.0 - 0.4 x10(3)/[facility] Basophil % 0.5 % [facility] Baso Absolute 0.0 0.0 - 0.1 x10(3)/ L [facility] Immature Gran % 0.30 % [facility] Comment: Immature granulocytes(IG's)percentage and absolute count will include metamyelocytes, myelocytes, and promyelocytes. Blood smears from CBCs yielding IG's will be scanned manually for concordance. If this scan disagrees with the automated IG or if promyelocytes are noted, a manual differential will be performed. Immature Gran Absolute 0.03 0.00 - 0.04 x10(3)/ L [facility] Blood specimen (specimen) 06/01/2019 3:22 PM EDT 06/01/2019 3:46 PM EDT Narrative Resulting Agency Comment Spec In Lab Gabe Fong MD HEMATOLOGY ORDERABLE S [facility] [place] [address] * (ABNORMAL) Hemogram (06/01/2019 3:22 PM EDT) [facility] White Blood Cell 10.9(H) 4.0 - 9.5 x10(3)/mc L [facility] Red Blood Cell 4.70 4.00 - 5.21 x10(6)/mc L [facility] Hemoglobin 14.3 11.7 - 15.5 gm/dL [facility] Hematocrit 44.1 35.7 - 45.8 % [facility] Mean Cell Volume 93.8 82.6 - 94.4 fL [facility] Mean Cell Hemoglobin 30.4 27.1 - 32.0 pg [facility] Mean Cell Hemoglobin Concentration 32.4 31.7 - 35.0 gm/dL [facility] Platelet 238 145 - 357 x10(3)/mc L [facility] RDW Standard Deviation 46.2(H) 37.0 - 46.0 fL [facility] RDW coefficient of variation 13.3 11.5 - 14.1 % [facility] Mean Platelet Volume 10.8 7.6 - 12.9 fL [facility] NRBC% auto 0.0 % [facility] NRBC Absolute 0.000 0.000 - 0.000 x10(3)/ L [facility] Blood specimen (specimen) 06/01/2019 3:22 PM EDT 06/01/2019 3:46 PM EDT Narrative Resulting Agency Comment Spec In Lab Gabe Fong MD HEMATOLOGY ORDERABLE S [facility] [place] [address] * (ABNORMAL) Hepatic Function Panel (06/01/2019 3:22 PM EDT) Protein, Total 8.4(H) 6.1 - 8.0 gm/dL [facility] Albumin 4.1 3.2 - 5.2 gm/dL [facility] Aspartate Aminotransferase 19 0 - 30 unit/L [facility] Alanine Aminotransferase 15 0 - 30 unit/L [facility] Alkaline Phosphatase 91 35 - 105 unit/L [facility] Bilirubin, Total 0.2 0.2 - 1.3 mg/dL [facility] Bilirubin, Direct <0.1 0.0 - 0.3 mg/dL [facility] Blood specimen (specimen) 06/01/2019 3:22 PM EDT 06/01/2019 3:46 PM EDT Narrative Resulting Agency Comment Spec In Lab Gabe Fong MD CHEMISTRY ORDERABLES Performing Organization Address City/[facility] Co de Phone Number [facility] [place] [address] * (ABNORMAL) CRP, acute inflammation (06/01/2019 3:22 PM EDT) C-Reactive Protein 8.4(H) <=4.9 mg/L [facility] Blood specimen (specimen) 06/01/2019 3:22 PM EDT 06/01/2019 3:46 PM EDT Narrative Resulting Agency Comment Spec In Lab Gabe Fong MD CHEMISTRY ORDERABLES Performing Organization Address City/[facility]/ZIP Co de Phone Number [facility] [place] [address] * Creatinine (06/01/2019 3:22 PM EDT) Creatinine 0.79 0.70 - 1.20 mg/dL [facility] Est Glomerular Filtration Rate 83 >=60 mL/min/1.7 3 m?? [facility] Comment: The eGFR was calculated using the CKD-EPI equation. As with all creatinine based estimates of kidney function, eGFR values calculated with the CKD-EPI equation are not accurate in patients with acute kidney failure, extremes of body mass or the acutely ill. http://[employer]/DHnkf eGFR 96 >=60 mL/min/1.7 3 m?? [facility] Comment: The eGFR was calculated using the CKD-EPI equation. As with all creatinine based estimates of kidney function, eGFR values calculated with the CKD-EPI equation are not accurate in patients with acute kidney failure, extremes of body mass or the acutely ill. http://[employer]/DHMCnkf Blood specimen (specimen) 06/01/2019 3:22 PM EDT 06/01/2019 3:46 PM EDT Narrative Resulting Agency Comment Spec In Lab Gabe Fong MD CHEMISTRY ORDERABLES Performing Organization Address [facility] Co de Phone Number [facility] [place] [address] * Sedimentation rate (06/01/2019 3:22 PM EDT) Sedimentation Rate Automated 11 0 - 20 mm/hr [facility] Blood specimen (specimen) 06/01/2019 3:22 PM EDT 06/01/2019 3:46 PM EDT Narrative Resulting Agency Comment Spec In Lab Gabe Fong MD HEMATOLOGY ORDERABLE S Performing Organization Address [facility] Co de Phone Number [facility] [place] [address] * Uric acid (06/01/2019 3:22 PM EDT) Uric Acid 6.1 2.5 - 6.5 mg/dL [facility] Blood specimen (specimen) 06/01/2019 3:22 PM EDT 06/01/2019 3:46 PM EDT Narrative Resulting Agency Comment Spec In Lab Gabe Fong MD CHEMISTRY ORDERABLES Performing Organization Address City/[facility] Co de Phone Number [facility] [place] [address] documented in this encounter Visit Diagnoses Diagnosis High risk medication use Encounter for long-term (current) use of other medications Inflammatory arthropathy Arthropathy, unspecified, site unspecified Morning joint stiffness Stiffness of joint, not elsewhere classified, unspecified site Ankylosing spondylitis, unspecified site of spine documented in this encounter Care Teams Nailhead Setter Relationship Specialty Start Date End Date Marcio Devlin DO [address] [place] [address] PCP - General Family Medicine 11/11/17 documented as of this encounter
--- OUTSIDE RECORDS SUMMARY | 2024-10-04 16:09 | XMS_ITS | Encounter Summary ---
Author Organization [facility] [place] [address] Care Team Providers Care Aitchbone Breaker Name Role Phone Marcio Devlin DO Primary Care Provider [phone] Reason for Visit * Reason Onset Date Comments Post Procedure Call 03/12/2018 Encounter Details Date Type Department Care Team (Late st Contact Info) Description 03/12/2018 Telephone Obstetrics [place] [address] Leidy Saravia RN Post Procedure [...] evening or weekends and ask for the business development analyst relationship executive if she is having problems. LEIDY SARAVIA RN documented in this encounter Plan of Treatment Upcoming Encounters Date Type Department Care Team (Late st Contact Info) Description 10/16/2024 10:00 AM EST Hospital Encounter Non[place] [address] Arrived 11/12/2024 8:00 AM EST Appointment Mammography/DXA at [place] [phone] Gabe Fong MD [facility] [address] [place] [address] 11/30/2024 2:30 PM EDT Office [place] [address] Gabe Fong MD [facility] [address] [place] [address] 12/07/2024 2:30 PM EDT TH Visit (TeleHealth) [place] [address] Rosemarie Morrow, SKIP [facility] [place] [place] [address] documented as of this encounter Visit Diagnoses Not on filedocumented in this encounter Care Teams Aitchbone Breaker Relationship Specialty Start Date End Date Marcio Devlin DO [address] [facility] [place] [address] PCP - General Family Medicine 11/11/17 documented as of this encounter
--- OUTSIDE RECORDS SUMMARY | 2024-10-04 16:09 | XMS_ITS | Encounter Summary ---
Author Organization [place] [address] Care Team Providers Care Coil Machine Operator Name Role Phone Marcio Devlin DO Primary Care Provider [phone] Reason for Visit * Auth/Cert Specialty Diagnoses [...] Expiration Date Visits Re quested Visits Authorized [id number] 1 1 Encounter Details Date Type Department Care Team (Late st Contact Info) Description 03/10/2018 7:30 AM EDT - 03/10/2018 11:18 AM EDT Surgery [place] [phone] Liang Fong MD HYSTERECTOMY, VAGINAL, REMOVAL TUBE(S) & OR OVARY(S) (WRVU 15.94) Social History Tobacco Use Types Packs/Day Years [...] Kim Funes Patient Age: 57 y.o. Language: Divehi Race: White Ethnicity: Not nor Admit date: 03/10/2018 Discharge date and time: 03/11/2018 Attending Physician: Liang Fong MD Discharge Physician: Liang Fong MD Follow-up Recommendations for Providers: Follow up appointment: 04/21/18 at 1:[address] Fong Inpatient Provider Contact Information: Female Pelvic Medicine and Reconstructive Surgery Department of Obstetrics and Gynecology [phone] Discharge Diagnoses (Hospital Problems) and Secondary Diagnoses [...] to snk spond so was referred [facility] for anesthesia to evaluate. Hospital Course: Kim [...] 1000 mg Refills: 0 SUMAtriptan 20 mg/actuation Ethel Commonly known as: IMITREX 1 spray as [...] in with the urogynecology office nurse at [phone] to review how your bladder is working and when the catheter use can be discontinued. For problems or concerns related to this hospitalization call: [phone] weekdays, or [phone] weekends or nights. Call your doctor if [...] Liang Fong MD Obstetrics and Gynecology at [place] [phone] 08/31/2018 11:00 AM Nico Campbell DO Rheumatology at [place] [phone] Discharge References/Attachments None Provider Contact Information: Marcio Devlin DO [phone] documented in this encounter Discharge Instructions * [...] in with the urogynecology office nurse at [phone] to review how your bladder is working and when the catheter use can be discontinued. For problems or concerns related to this hospitalization call: [phone] weekdays, or [phone] weekends or nights. Call your doctor if [...] by mouth daily. SUMAtriptan (IMITREX) 20 mg/actuation [place], Non-Aerosol 1 spray as needed. 11/03/2017 metFORMIN [...] output FEK: D/c IVF. Tolerating PO intake. GLASS TUBE BENDER: Final pathology report pending. -Follow up in [...] She is Post-operative day #1 from TV, [place], [place]. Retropubic MUS, cysto. I have reviewed [...] intake. -Wean IVF when tolerating full diet GLASS TUBE BENDER: Final pathology report pending. -Follow up in clinic 4-6 weeks postoperatively Endocrine: DM II - sensitive SSI ordered ID: Afebrile, received prophylactic antibiotics preop, no evidence of infection -continue to monitor vital signs. Prophylaxis: SCDs while in bed, encourage ambulation, incentive spirometry Dispo: Anticipate discharge tomorrow Code Status: Full Code Jason Stapleton MD PGY-2 03/10/2018 Gynecology Service Pager: [phone] ([phone] [phone]), otherwise page [phone] * Aleta Croft RN - 03/10/2018 11:25 AM EDT Pt arrived from OR to PACU. Placed on monitor and alarms adjusted. Received report.1225: infor visit. documented in this encounter H&P Notes * Victorina Becker - 03/10/2018 6:30 AM EDT Inpatient SENIOR INDUSTRIAL ENGINEER - Admission Interval Note I have reviewed [...] Outcome (s) achieved Date Met: 03/11/18 03/11/1872503/11/18 0800 Activity Activity Type ambulated in medina [...] MD - 03/10/2018 11:21 AM EDT [facility] Operative Note Patient Name: Kim Funes : [id number] MR#: [id number] Case Date: 03/10/2018 Surgeon: Surgeon(s) and Role: [...] the cervical portio with 1% lidocaine with [id number] Epinephrine solution. A weighted speculum had been [...] defect, and this was reapproximated with a [id number]-nj-[id number] 0Vicryl suture in interrupted fashion. After the [...] Operative Note Patient Name: Kim Funes : [id number] MR#: [id number] Case Date: 03/10/2018 Surgeon: Surgeon(s) and Role: [...] AM EST Hospital Encounter Non-[place] [phone] Arrived 11/12/2024 8:00 AM EST Appointment Mammography/DXA at [place] [phone] Gabe Fong MD [facility] [address] 11/30/2024 2:30 PM EDT Office [place] [address] Gabe Fong MD [facility] [address] 12/07/2024 2:30 PM EDT TH Visit (TeleHealth) [place] [address] Rosemarie Morrow APRN [facility] [place] [address] documented as of this encounter Procedures Procedure Name Priority Date/Time Associated Diagnosis Comments ARC AND GAS WELDER SCAN 03/12/2018 12:00 AM EDT POCT GLUCOSE [...] in this encounter Results * SCAN DOC: ARC AND GAS WELDER (03/12/2018 12:00 AM EDT) Anatomical Region Laterality Modality Other Narrative 03/12/2018 12:00 AM EDT Ordered by an unspecified provider. Scanning Provider MEDIA MGR SCAN EXT O RDR/RSLT * POCT Glucose (03/11/2018 7:16 AM EDT) Glucose, POC 121 65 - 199 mg/dL [facility] Comment: Supplemental ranges: <140 mg/dL before meals <180 mg/dL all other times of the day Blood specimen (specimen) 03/11/2018 7:16 AM EDT 03/11/2018 7:16 AM EDT Liang Fong MD POINT OF CARE TEST O RDERABLES [facility] [place] [address] * POCT Glucose (03/10/2018 9:20 PM EDT) Glucose, POC 107 65 - 199 mg/dL [facility] Comment: Supplemental ranges: <140 mg/dL before meals <180 mg/dL all other times of the day Blood specimen (specimen) 03/10/2018 9:20 PM EDT 03/10/2018 9:20 PM EDT Liang Fong MD POINT OF CARE TEST O IRMA [facility] [place] [address] * POCT Glucose (03/10/2018 4:39 PM EDT) Glucose, POC 110 65 - 199 mg/dL [facility] Comment: Supplemental ranges: <140 mg/dL before meals <180 mg/dL all other times of the day Blood specimen (specimen) 03/10/2018 4:39 PM EDT 03/10/2018 4:39 PM EDT Liang Fong MD POINT OF CARE TEST O IRMA Performing Organization Address [facility]/ZIP Co de Phone Number [facility] [place] [address] * POCT Glucose (03/10/2018 11:23 AM EDT) Glucose, POC 137 65 - 199 mg/dL [facility] Comment: Supplemental ranges: <140 mg/dL before meals <180 mg/dL all other times of the day Blood specimen (specimen) 03/10/2018 11:23 AM EDT 03/10/2018 11:23 AM EDT Liang Fong MD POINT OF CARE TEST O IRMA Performing Organization Address City/[facility]/ZIP Co de Phone Number [facility] [place] [address] * Specimen to Pathology (03/10/2018 9:22 AM EDT) AP Specimen 03/10/2018 9:22 AM EDT 03/10/2018 11:02 AM EDT Narrative [facility] - 03/10/2018 11:03 AM EDT Specimen requisition ordered. ??Separate Pathology report to follow Resulting Agency Comment Spec In Lab Liang Fong MD PATHOLOGY/CYTOLOGY O RDERADARLEEN [facility] [place] [address] * Surgical Pathology Report (03/10/2018 9:00 AM EDT) Final Diagnosis [id number] ? Location: [facility]; [facility]; The signing pathologist has (i) examined [...] Hayes Verified: ??03/16/2018 ?Pathologist Performed at: ??-[facility] Dept. of Pathology, [place], [place] CLINICAL INFORMATION Specimen Submitted: A - [...] MD PATHOLOGY/CYTOLOGY Clotilde SOLIS Performing Organization Address [facility] Co de Phone Number [facility] [place] [address] * POCT Glucose (03/10/2018 6:28 AM EDT) Glucose, POC 107 65 - 199 mg/dL [facility] Comment: Supplemental ranges: <140 mg/dL before meals <180 mg/dL all other times of the day Blood specimen (specimen) 03/10/2018 6:28 AM EDT 03/10/2018 6:28 AM EDT Liang Fong MD POINT OF CARE TEST Clotilde SOLIS Performing Organization Address City/[facility]/ZIP Co de Phone Number [facility] [place] [address] documented in this encounter Visit Diagnoses Not [...] Waters, RN)[phone] (Given - Provider: Carmencita Waters, FRANCESCA) [...] Waters, FRANCESCA) [phone] (Given - Provider: Chantell Moy RN) [...] Routine documented in this encounter Care Teams Coil Machine Operator Relationship Specialty Start Date End Date Marcio Devlin DO [address] [place] [address] PCP - General Family Medicine 11/11/17 documented as of this encounter
--- OUTSIDE RECORDS SUMMARY | 2024-10-04 16:09 | XMS_ITS | Encounter Summary ---
[place] [address] Care Team Providers Care Dump Attendant Name Role Phone Marcio Devlin DO Primary Care Provider [phone] Reason for Visit * Reason Onset Date Comments Prior Authorization 10/09/2018 Shannon Encounter Details Date Type Department Care Team (Late st Contact Info) Description 10/09/2018 [place] [phone] Cory Garcia Prior Authorization (Shannon) Social History [...] AM EST Hospital Encounter [place] [address] Arrived 11/12/2024 8:00 AM EST Appointment Mammography/DXA at [place] [address] Gabe Fong MD [facility] [place] [address] 11/30/2024 2:30 PM EDT Office Visit Rheumatology at [place] [address] Gabe Fong MD [facility] [place] [address] 12/07/2024 2:30 PM EDT TH Visit (TeleHealth) Gastroenterology at [place] [address] Rosemarie Morrow, SKIP [facility] [place] [address] documented as of this encounter Visit Diagnoses Not on filedocumented in this encounter Care Teams Dump Attendant Relationship Specialty Start Date End Date Marcio Devlin DO [address] [place] [address] PCP - General Family Medicine 11/11/17 documented as of this encounter
--- OUTSIDE RECORDS SUMMARY | 2024-10-04 16:09 | XMS_ITS | Encounter Summary ---
Author Organization [facility]ly [facility] Address [facility] [place] [address] Care Team Providers Care Soiled Linen Distributor Name Role Phone Marcio Devlin DO Primary Care Provider [phone] Encounter Details Date Type Department Care Team (Latest Contact Info) Description 03/09/2019 9:50 AM EDT - 03/09/2019 11:59 PM EDT Hospital Encounter XRay at [address] [place] [address] Glenn Choe MD [facility] [place] [address] Primary osteoarthritis of right hip Discharge Disposition: [...] telephone the diagnostic section of radiology at [phone]. documented in this encounter Medications at Time of Discharge Medication Sig Dispensed Refills Start Date End Date PROAIR HFA 90 mcg/actuation HFA Aerosol Inhaler as needed. 07/20/2018 topiramate 50 mg capsule,sprinkle,ER 24hr TAKE ONE CAPSULE BY MOUTH TWICE A DAY 3 08/25/2018 aspirin 81 mg Tablet, Delayed Release (E.C.) Take 81 mg by mouth daily. SUMAtriptan (IMITREX) 20 mg/actuation [place], Non-Aerosol 1 spray as needed. 11/03/2017 metFORMIN [...] AM EST Hospital Encounter Non-[place] [address] Arrived 11/12/2024 8:00 AM EST Appointment Mammography/[place] [address] Gabe Fong MD [facility] [address] [place] [address] 11/30/2024 2:30 PM EDT Office [place] [address] Gabe Fong MD [facility] [address] [place] [address] 12/07/2024 2:30 PM EDT TH Visit (TeleHealth) [place] [address] Rosemarie Morrow APRN [facility] [place] [address] documented as of this encounter [...] electronic medical record and allergies, as per [facility] protocol. The patient was placed supine on [...] reviewed with patient. Procedure Note Danika Carlton, SPINNERET PERSON - 03/09/2019 HISTORY: Right hip pain, hip joint etiology? RIGHT HIP JOINT INJECTION UNDER FLUOROSCOPY TECHNIQUE: After an extensive conversation with the patient regarding risks andbenefits, oral and written consent were obtained.? A pre- procedural time-out was performed, including review of the patient's relevant electronic medicalrecord and allergies, as per [facility] protocol. The patient was placed supine on [...] EDT documented in this encounter Care Teams Soiled Linen Distributor Relationship Specialty Start Date End Date Marcio Devlin DO [address] [place] [address] PCP - General Family Medicine 11/11/17 documented as of this encounter
--- OUTSIDE RECORDS SUMMARY | 2024-10-04 16:09 | XMS_ITS | Encounter Summary ---
[place] [address] Care Team Providers Care Printed Circuit Boards Beveler Name Role Phone Marcio Devlin DO Primary Care Provider [phone] Encounter Details Date Type Department Care Team (Late st Contact Info) Description 02/26/2019 [place] [address] Nico Campbell DO Social History [...] EST Hospital Encounter Non-Invasive [place] [address] Arrived 11/12/2024 8:00 AM EST Appointment Mammography/[place] [address] Gabe Fong MD [facility] [place] [address] 11/30/2024 2:30 PM EDT Office [place] [address] Gabe Fong MD [facility] [place] [address] 12/07/2024 2:30 PM EDT TH Visit (TeleHealth) [place] [address] Rosemarie Morrow, SKIP [facility] [place] [address] documented as of this encounter Visit Diagnoses Not on filedocumented in this encounter Care Teams Printed Circuit Boards Beveler Relationship Specialty Start Date End Date Marcio Devlin DO [address] [place] [address] PCP - General Family Medicine 11/11/17 documented as of this encounter
--- OUTSIDE RECORDS SUMMARY | 2024-10-04 16:09 | XMS_ITS | Encounter Summary ---
[place] [address] Care Team Providers Care Residential Service Technician Name Role Phone Marcio Devlin DO Primary Care Provider [phone] Encounter Details Date Type Department Care Team (Latest Contact Info) Description 02/24/2018 2:30 PM EDT [place] [address] Uterovaginal prolapse, incomplete; Urinary, incontinence, [...] AM EST Hospital Encounter Non-Invasive [place] [address] Arrived 11/12/2024 8:00 AM EST Appointment Mammography[place] [address] Gabe Fong MD [facility] [place] [address] 11/30/2024 2:30 PM EDT Office [place] [address] Gabe Fong MD [facility] [place] [address] 12/07/2024 2:30 PM EDT TH Visit (TeleHealth) [place] [address] Rosemarie Morrow APRN [facility] [address] documented as of this encounter [...] Urinary, incontinence, stress female TYPE AND SCREEN (MC/CGP/LILO) Routine 02/24/2018 3:03 PM EDT Uterovaginal prolapse, incomplete Urinary, incontinence, stress female COMPREHENSIVE METABOLIC PANEL Routine 02/24/2018 3:03 PM EDT documented in this encounter Results * (ABNORMAL) Comprehensive metabolic panel (non-fasting) (02/24/2018 3:03 PM EDT) Glucose 89 65 - 199 mg/dL [facility] Comment:Diabetes: >=200 mg/d L plus symptoms Blood Urea Nitrogen 20(H) 8 - 18 mg/dL [facility] Creatinine 0.92 0.70 - 1.20 mg/dL [facility] Sodium 146(H) 135 - 145 mmol/L [facility] Potassium 3.7 3.5 - 5.0 mmol/L [facility] Comment: Please note: ??Patients with WBC >100,000 may have falsely elevated Potassium levels. ??For accurate Potassium quantification in these patients send serum separator tube (gold top) for subsequent determinations. ??Contact the Clinical Chemistry Laboratory if there are any questions. Chloride 103 98 - 107 mmol/L [facility] Carbon Dioxide 29 22 - 31 mmol/L [facility] Anion Gap 14 5 - 15 mmol/L [facility] Calcium 9.9 8.5 - 10.5 mg/dL [facility] Protein, Total 7.7 6.1 - 8.0 gm/dL [facility] Albumin 4.1 3.2 - 5.2 gm/dL [facility] Aspartate Aminotransferase 36(H) 0 - 30 unit/L [facility] Alanine Aminotransferase 48(H) 0 - 30 unit/L [facility] Alkaline Phosphatase 91 40 - 104 unit/L [facility] Bilirubin, Total 0.3 0.2 - 1.3 mg/dL [facility] Est Glomerular Filtration Rate 70 >=60 mL/min/1. 73 m?? [facility] Comment: The eGFR was calculated using the CKD-EPI equation. As with all creatinine based estimates of kidney function, eGFR values calculated with the CKD-EPI equation are not accurate in patients with acute kidney failure, extremes of body mass or the acutely ill. http://[employer]kdep http://[employer]/MCnkf eGFR 81 >=60 mL/min/1. 73 m?? [facility] Comment: The eGFR was calculated using the CKD-EPI equation. As with all creatinine based estimates of kidney function, eGFR values calculated with the CKD-EPI equation are not accurate in patients with acute kidney failure, extremes of body mass or the acutely ill. http://[employer]dep http://[employer]/[facility] Blood specimen (specimen) Venous Draw / Unknown 02/24/2018 3:03 PM EDT 02/24/2018 3:24 PM EDT Narrative Resulting Agency Comment Spec In Lab Nico Campbell DO CHEMISTRY ORDERABLES Performing Organization Address City/[facility]/ZIP Co de Phone Number [facility] [place] [address] * ABORH Recheck Status (02/24/2018 3:03 PM EDT) Pathologist [facility] ABORH Type Recheck Completed [facility] Blood specimen (specimen) 02/24/2018 3:03 PM EDT 02/24/2018 3:09 PM EDT Narrative Resulting Agency Comment Spec In Lab Liang Fong MD BLOOD BANK LAB ORDER EDUAR Performing Organization Address [facility]/ZIP Co de Phone Number [facility] [place] [address] * (ABNORMAL) Differential, Automated (02/24/2018 3:03 PM EDT) Neutrophil % 46.4 % [facility] Neutrophil Absolute 4.08 1.70 - 6.10 x10(3)/mc L [facility] Lymph % 42.1 % [facility] Lymphocytes Abs 3.7(H) 0.9 - 3.2 x10(3)/[facility] Monocyte % 9.4 % [facility] Monocyte Abs 0.8 0.3 - 0.9 x10(3)/[facility] Eos % 1.3 % [facility] Eosinophils Abs 0.1 0.0 - 0.4 x10(3)/[facility] Basophil % 0.3 % [facility] Baso Absolute 0.0 0.0 - 0.1 x10(3)/[facility] Immature Gran % 0.50 % [facility] Comment: Immature granulocytes(IG's)percentage and absolute count will include metamyelocytes, myelocytes, and promyelocytes. Blood smears from CBCs yielding IG's will be scanned manually for concordance. If this scan disagrees with the automated IG or if promyelocytes are noted, a manual differential will be performed. Immature Gran Absolute 0.04 0.00 - 0.04 x10(3)/[facility] Blood specimen (specimen) 02/24/2018 3:03 PM EDT 02/24/2018 3:15 PM EDT Narrative Resulting Agency Comment Spec In Lab Liang Fong MD HEMATOLOGY ORDERABLE S [facility] [place] [address] * (ABNORMAL) Hemogram (02/24/2018 3:03 PM EDT) White Blood Cell 8.8 4.0 - 9.5 x10(3)/[facility] Red Blood Cell 5.01 4.00 - 5.21 x10(6)/[facility] Hemoglobin 15.5 11.7 - 15.5 gm/dL [facility] Hematocrit 46.2(H) 35.7 - 45.8 % [facility] Mean Cell Volume 92.2 82.6 - 94.[address] [facility] Mean Cell Hemoglobin 30.9 27.1 - 32.[address] [facility] Mean Cell Hemoglobin Concentration 33.5 31.7 - 35.0 gm/dL [facility] Platelet 204 145 - 357 x10(3)/mc L [facility] RDW Standard Deviation 43.5 37.0 - 46.[address] [facility] RDW coefficient of variation 12.9 11.5 - 14.1 % [facility] Mean Platelet Volume 10.8 7.6 - 12.[address] [facility] NRBC% auto 0.0 % [facility] NRBC Absolute 0.000 0.000 - 0.000 x10(3)/mc L [facility] Blood specimen (specimen) 02/24/2018 3:03 PM EDT 02/24/2018 3:15 PM EDT Narrative Resulting Agency Comment Spec In Lab Liang Fong MD HEMATOLOGY ORDERABLE S Performing Organization Address City/[facility]/ZIP Co de Phone Number [facility] [place] [address] * Antibody screen (02/24/2018 3:03 PM EDT) Ab Screen Interp Negative [facility] Expires at 2359 on: 03/13/2018 [facility] Comment:Corrected from 03/14 12:00 [Unknown] on 02/26/18 08:23 by Eric Lobo Blood specimen (specimen) 02/24/2018 3:03 PM EDT 02/24/2018 3:09 PM EDT Narrative Resulting Agency Comment Spec In Lab Liang Fong MD BLOOD BANK LAB ORDER EDUAR [facility] [place] [address] * ABO/Rh Typing (02/24/2018 3:03 PM EDT) ABORH Type AB Neg [facility] Blood specimen (specimen) 02/24/2018 3:03 PM EDT 02/24/2018 3:09 PM EDT Narrative Resulting Agency Comment Spec In Lab Liang Fong MD BLOOD BANK LAB ORDER EDUAR Performing Organization Address [facility] Co de Phone Number [facility] [place] [address] * Creatinine (02/24/2018 3:03 PM EDT) Creatinine 0.92 0.70 - 1.20 mg/dL [facility] Est Glomerular Filtration Rate 70 >=60 mL/min/1.7 3 m?? [facility] Comment: The eGFR was calculated using the CKD-EPI equation. As with all creatinine based estimates of kidney function, eGFR values calculated with the CKD-EPI equation are not accurate in patients with acute kidney failure, extremes of body mass or the acutely ill. http://[employer]/DHnkdep http://Fashion Project/[facility] eGFR 81 >=60 mL/min/1.7 3 m?? [facility] Comment: The eGFR was calculated using the CKD-EPI equation. As with all creatinine based estimates of kidney function, eGFR values calculated with the CKD-EPI equation are not accurate in patients with acute kidney failure, extremes of body mass or the acutely ill. http://[employer]/DHnkdep http://[employer] Project/DHMCnkf Blood specimen (specimen) 02/24/2018 3:03 PM EDT 02/24/2018 3:15 PM EDT Narrative Resulting Agency Comment Spec In Lab Liang Fong MD CHEMISTRY ORDERABLES Performing Organization Address City/[facility]/ZIP Co de Phone Number [facility] [place] [address] documented in this encounter Visit Diagnoses Diagnosis Uterovaginal prolapse, incomplete Urinary, incontinence, stress female Female stress incontinence documented in this encounter Care Teams Residential Service Technician Relationship Specialty Start Date End Date Marcio Devlin DO [address] [place] [address] PCP - General Family Medicine 11/11/17 documented as of this encounter
--- OUTSIDE RECORDS SUMMARY | 2024-10-04 16:09 | XMS_ITS | Encounter Summary ---
Author Organization [facility] [place] [address] Care Team Providers Care Sales Support Associate Name Role Phone Marcio Devlin DO Primary Care Provider [phone] Reason for Visit * Reason Comments Establish Care * Consultation (Routine) - Closed Specialty Diagnoses / Procedures Referred By Missy escalera Referred To Contact Obstetrics and Gynecology Diagnoses Urethral caruncle, Stress urinary incontinence Franki Hancock MD [address] [place] [address] [facility] [address] [place] [address] Referral ID Status Reason Start Date Expiration Date Visits Re quested Visits Authorized [id number] Closed 09/02/2017 09/02/2018 1 1 Encounter Details Date Type Department Care Team (Late st Contact Info) Description 02/20/2018 3:00 PM EDT Office Visit Obstetrics [place] [address] Liang Fong MD Uterovaginal prolapse, incomplete (Primary Dx); Urinary, incontinence, [...] Female Pelvic Medicine and Reconstructive Surgery @ [facility] Patient Name: Kim Funes Patient Primary Care [...] secondary to snk spond so was referred [facility] for anesthesia to evaluate. Has ank spond [...] WITH BX performed by YAQUELIN ESTRADA at [facility] ??? PRO COLONOSCOPY, BIOPSY N/A 03/04/2017 COLONOSCOPY FLEXIBLE, WITH BX (WRVU 3.66) performed by Raúl Austin MD at [facility] ??? PRO COLONOSCOPY, REMV LESN, SNARE 01/02/2011 COLONOSCOPY, POLYPECTOMY, REMOVAL LESION BY SNARE performed by YAQUELIN ESTRADA at [facility] ??? PRO COLONOSCOPY, REMV LESN, SNARE N/A 03/04/2017 COLONOSCOPY, POLYPECTOMY, REMOVAL LESION BY SNARE (WRVU 4.67) performed by Raúl Austin MD at [facility] ??? SALPINGECTOMY Obstetric History T1 [...] kit 5 ??? SUMAtriptan (IMITREX) 20 mg/actuation [employer], Non-Aerosol 1 spray as needed. ??? ferrous [...] test (empty supine): POSITIVE External Genitalia: Vulva, Keener's and Bartholin glands normal, urethra without tenderness [...] her uterovaginal prolapse: 1. Vaginal hysterectomy with walker river ligament (uterosacral or sacrospinous) repair, with 70-80% [...] will proceed with the above procedures on february/march. ??? Anesthesia preference: per anesthesia ??? Medications [...] supportive measures. The patient did sign the [facility] acute narcotic consent form in anticipation of typical post-operative opioid therapy for approximately 7 days. Liang Fong MD Division of Female Pelvic Medicine/Reconstructive Surgery CC: Marcio Devlin, DO Franki Hancock documented in this encounter Plan of Treatment Upcoming Encounters Date Type Department Care Team (Late st Contact Info) Description 10/16/2024 10:00 AM EST Hospital Encounter Non-[place] [address] Arrived 11/12/2024 8:00 AM EST Appointment Mammography/DXA at [address] Gabe Fong MD [facility] [place] [address] 11/30/2024 2:30 PM EDT Office Visit Rheumatology at [place] [phone] Gabe Fong MD [facility] [place] [address] 12/07/2024 2:30 PM EDT TH Visit (TeleHealth) [place] [address] Rosemarie Morrow APRN [facility] [place] [address] documented as of this encounter Visit Diagnoses Diagnosis Uterovaginal prolapse, incomplete- Primary Urinary, incontinence, stress female Female stress incontinence documented in this encounter Care Teams Sales Support Associate Relationship Specialty Start Date End Date Marcio Devlin DO [address] [place] [address] PCP - General Family Medicine 11/11/17 documented as of this encounter
--- OUTSIDE RECORDS SUMMARY | 2024-10-04 16:09 | XMS_ITS | Encounter Summary ---
Author Organization [facility] [place] [address] Care Team Providers Care Channel Executive Name Role Phone Marcio Devlin DO Primary Care Provider [phone] Reason for Visit * Reason Onset Date Comments Injections 02/23/2019 Encounter Details Date Type Department Care Team (Late st Contact Info) Description 02/23/2019 Telephone [place] [phone] Glenn Choe MD [facility] [place] [address] Injections Social History Tobacco Use Types Packs/Day [...] encounter Miscellaneous Notes * Telephone Encounter - [place], Angus Velazquez - 02/23/2019 9:28 AM EDT 1.) Does patient have any medication allergies? Yes // See chart 2.) Patient???s approximate weight in lbs. 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 5.) Has [...] AM EST Hospital Encounter Non-Invasive Cardiology Lab [place] [phone] Arrived 11/12/2024 8:00 AM EST Appointment Mammography/[place] [address] Gabe Fong MD [facility] [place] [address] 11/30/2024 2:30 PM EDT Office [place] [address] Gabe Fong MD [facility] [place] [address] 12/07/2024 2:30 PM EDT TH Visit (TeleHealth) [place] [address] Rosemarie Morrow APRN [facility] [place] [address] documented as of this encounter Visit Diagnoses Not on filedocumented in this encounter Care Teams Channel Executive Relationship Specialty Start Date End Date Marcio Devlin DO [address] [place] [phone] PCP - General Family Medicine 11/11/17 documented as of this encounter
--- OUTSIDE RECORDS SUMMARY | 2024-10-04 16:09 | XMS_ITS | Encounter Summary ---
Author Organization [facility] [place] [address] Care Team Providers Care Manager Implementation Name Role Phone Marcio Devlin DO Primary Care Provider [phone] Reason for Visit * Reason Comments Right Hip Pain xr right hip pain (P H left ROSS 03/2006 Ginger) * Consultation (Routine) - Closed Specialty Diagnoses / Procedures Referred By Missy escalera Referred To Contact Orthopaedics Diagnoses Primary osteoarthritis of both hips Primary osteoarthritis of both hips Nico Campbell DO [facility] [address] [facility] [address] [place] [phone] Referral ID Status Reason Start Date Expiration Date V isits Requested Visits Authorized [id number] Closed Consult, Test & Treat 02/18/2019 02/18/2020 1 1 Encounter Details Date Type Department Care Team (Latest Contact Info) Description 02/23/2019 8:20 AM EDT Office [place] [address] Glenn Choe MD [facility] [address] Primary osteoarthritis of right hip; [...] HIP SURGERY: 1. Left Total Hip Arthroplasty (Ginger) 2005 Subjective: The patient is a 58-year-old [...] anti-inflammatory drugs (e.g Advil, Aspirin, Aleve) MATHIEU JR Scores 55.99 ROSS Grade 5 Alzheimers or [...] less than $75,000 # People Supported 2 Tanzanian, , No, not Tanzanian// Race White Health Literacy Extremely Currently working [...] AM EST Hospital Encounter Non[place] [address] Arrived 11/12/2024 8:00 AM EST Appointment Mammography/DXA at [place] [phone] Gabe Fong MD [facility] [place] [address] 11/30/2024 2:30 PM EDT Office Visit Rheumatology at [place] [phone] Gabe Fong MD [facility] [place] [address] 12/07/2024 2:30 PM EDT TH Visit (TeleHealth) [place] [address] Rosemarie Morrow, SKIP [facility] [place] [address] documented as of this encounter Results * [...] electronic medical record and allergies, as per [facility] protocol. The patient was [...] relevant electronic medicalrecord and allergies, as per [facility] protocol. The patient was [...] documented in this encounter Care Teams Manager Implementation Relationship Specialty Start Date End Date Marcio Devlin DO [address] [place] [address] PCP - General Family Medicine 11/11/17 documented as of this encounter
--- OUTSIDE RECORDS SUMMARY | 2024-10-04 16:10 | XMS_ITS | Encounter Summary ---
Author Organization [facility] [place] [address] Care Team Providers Care Dehydrogenation Supervisor Name Role Phone Marcio Carranza MD Primary Care Provider [phone] Encounter Details Date Type Department Care Team (Late st Contact Info) Description 02/29/2016 1:45 PM EDT Office [place] [address] Albert Saenz MD Enteropathic arthritis Social History Tobacco Use Types [...] AM EST Hospital Encounter Non-Invasive Cardiology Lab [address] Arrived 11/12/2024 8:00 AM EST Appointment Mammography/DXA at [place] [address] Gabe Fong MD [facility] [place] [address] 11/30/2024 2:30 PM EDT Office Visit Rheumatology at [place] [phone] Gabe Fong MD [facility] [place] [address] 12/07/2024 2:30 PM EDT TH Visit (TeleHealth) [place] [phone] Rosemarie Morrow APRN [facility] [address] documented as of this encounter Procedures Procedure [...] BMD measurements and plots are available in [employer] under the imaging tab. Paper copies will be sent to providers without [employer] access. If you have received this report without the data sheet and do not have access to [employer], please contact Radiology Estate Tax Examiner at [phone] Friday thru Friday 8am-4pm. Narrative 03/05/2016 2:40 PM EDT EXAMINATION: DEXA ??CENTRAL SPINE, HIP, AND/OR WHOLE BODY CLINICAL HISTORY: ? Postmenapausal woman at risk for osteoporosis TECHNIQUE: Scans were acquired at the lumbar spine, right hip FINDINGS: Lowest T-score at the diagnostic region of interest: T-score: -1.3, TTIA: Lumbar spine, WHO diagnosis: low bone mass [...] BMD measurements and plots are available in E-under the imaging tab. Paper copies will be sent to providers without [employer] access.If you have received this report without the data sheet and do not haveaccess to [employer], please contact Radiology Estate Tax Examiner at [phone] Friday thruFrid 8am-4pm. Lola Haley DO IMG DEXA ORDERABLE S * Differential, Automated (02/29/2016 2:42 PM EDT) Neutrophil % 45.9 % [facility] Neutrophil Absolute 3.38 1.50 - 6.30 x10(3)/[facility] Lymph % 41.3 % [facility] Lymphocytes Abs 3.0 1.0 - 3.6 x10(3)/[facility] Monocyte % 10.0 % [facility] Monocyte Abs 0.7 0.2 - 1.0 x10(3)/[facility] Eos % 2.3 % [facility] Eosinophils Abs 0.2 0.0 - 0.5 x10(3)/[facility] Basophil % 0.4 % [facility] Baso Absolute 0.0 0.0 - 0.2 x10(3)/[facility] Immature Gran % 0.10 % [facility] Comment: Immature granulocytes(IG's)percentage and absolute count will include metamyelocytes, myelocytes, and promyelocytes. Blood smears from CBCs yielding IG's will be scanned manually for concordance. If this scan disagrees with the automated IG or if promyelocytes are noted, a manual differential will be performed. Immature Gran Absolute 0.01 0.00 - 0.05 x10(3)/[facility] Blood specimen (specimen) 02/29/2016 2:42 PM EDT 02/29/2016 2:48 PM EDT Narrative Resulting Agency Comment Spec In Lab Lola Haley DO HEMATOLOGY ORDERAB LES Performing Organization Address City/[facility]/ZIP Co de Phone Number [facility] [place] [address] * (ABNORMAL) Hemogram (02/29/2016 2:42 PM EDT) White Blood Cell 7.4 4.0 - 10.0 x10(3)/mc L [facility] Red Blood Cell 5.15 3.93 - 5.22 x10(6)/mc L [facility] Hemoglobin 16.2(H) 11.2 - 15.7 gm/dL [facility] Hematocrit 48.5(H) 34.0 - 45.0 % [facility] Mean Cell Volume 94.2(H) 79.0 - 94.0 fL [facility] Mean Cell Hemoglobin 31.5 26.6 - 32.2 pg [facility] Mean Cell Hemoglobin Concentration 33.4 32.0 - 36.5 gm/dL [facility] Platelet 193 145 - 370 x10(3)/mc L [facility] RDW Standard Deviation 46.0 35.0 - 46.0 fL [facility] RDW coefficient of variation 13.4 10.9 - 14.4 % [facility] Mean Platelet Volume 11.6 9.0 - 12.0 fL [facility] Blood specimen (specimen) 02/29/2016 2:42 PM EDT 02/29/2016 2:48 PM EDT Narrative Resulting Agency Comment Spec In Lab Lola Haley DO HEMATOLOGY ORDERAB LES Performing Organization Address City/[facility]/ZIP Co de Phone Number [facility] [place] [address] * High Sensitivity CRP (02/29/2016 2:42 PM EDT) C-Reactive Protein High Sensitivity 1.9 mg/L [facility] Comment: Interpretations: 1) For accurate [...] Lab Lola Haley DO CHEMISTRY ORDERABL ES [facility] [place] [address] * (ABNORMAL) Comprehensive metabolic panel (non-fasting) (02/29/2016 2:42 PM EDT) Glucose 139 65 - 199 mg/dL [facility] Comment:Diabetes: >=200 mg/d L plus symptoms Blood Urea Nitrogen 15 8 - 18 mg/dL [facility] Creatinine 0.82 0.70 - 1.20 mg/dL [facility] Comment: Please note that the pediatric reference intervals supplied above were not validated at [facility]. Results from pediatric patients should be interpreted in conjunction to the patient's age, height and muscle mass. Sodium 144 135 - 145 mmol/L [facility] Potassium 4.0 3.5 - 5.0 mmol/L [facility] Comment: Please note: ??Patients with WBC >100,000 may have falsely elevated Potassium levels. ??For accurate Potassium quantification in these patients send serum separator tube (gold top) for subsequent determinations. ??Contact the Clinical Chemistry Laboratory if there are any questions. Chloride 103 98 - 107 mmol/L [facility] Carbon Dioxide 29 22 - 31 mmol/L [facility] Anion Gap 12 5 - 15 mmol/L [facility] Calcium 10.1 8.5 - 10.5 mg/dL [facility] Protein, Total 7.9 6.1 - 8.0 gm/dL [facility] Albumin 4.4 3.2 - 5.2 gm/dL [facility] Aspartate Aminotransferase 63(H) 0 - 30 unit/L [facility] Alanine Aminotransferase 83(H) 0 - 30 unit/L [facility] Alkaline Phosphatase 78 40 - 104 unit/L [facility] Bilirubin, Total 0.4 0.2 - 1.3 mg/dL [facility] Bilirubin, Direct 0.1 0.0 - 0.3 mg/dL [facility] Est [...] the following links into your internet browser. 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
--- OUTSIDE RECORDS SUMMARY | 2024-10-04 16:10 | XMS_ITS | Encounter Summary ---
Author Organization [facility] [place] [address] Care Team Providers Care Art Dealer Name Role Phone Marcio Carranza MD Primary Care Provider [phone] Reason for Visit * Reason Onset Date Comments Medication Refill 12/03/2015 Encounter Details Date Type Department Care Team (Late st Contact Info) Description 12/04/2015 [place] [phone] Albert Saenz MD Ankylosing spondylitis of cervical region Social History [...] Miscellaneous Notes * Telephone Encounter - Lory Jarquin CMA - 12/04/2015 9:22 AM EDTFrom: Kim Funes To: Lana Castro MD Sent: 12/03/2015 8:22 PM EDT Subject: Medication Renewal Request Original authorizing provider: MD Kim AGUIAR would like a refill of the following medications: Adalimumab (HUMIRA PEN) 40 mg/0.8 mL Pen Injector Kit [LANA CASTRO MD] Preferred pharmacy: [place], [place] [facility] [address] Comment: documented in this encounter Plan of Treatment Upcoming Encounters Date Type Department Care Team (Late st Contact Info) Description 10/16/2024 10:00 AM EST Hospital Encounter Non-Invasive Cardiology Lab [place] [phone] Arrived 11/12/2024 8:00 AM EST Appointment Mammography/[place] [address] Gabe Fong MD [facility] [place] [address] 11/30/2024 2:30 PM EDT Office Visit Rheumatology at [place] [phone] Gabe Fong MD [facility] [place] [address] 12/07/2024 2:30 PM EDT TH Visit (TeleHealth) [place] [address] Rosemarie Morrow, SKIP [facility] [place] [address] documented as of this encounter Visit Diagnoses Diagnosis Ankylosing spondylitis of cervical region Ankylosing spondylitis documented in this encounter Care Teams Art Dealer Relationship Specialty Start Date End Date Marcio Carranza MD [address] [place] [address] PCP - General 08/07/10 11/10/17 documented as of this encounter
--- OUTSIDE RECORDS SUMMARY | 2024-10-04 16:10 | XMS_ITS | Encounter Summary ---
Author Organization [facility] [place] [address] Care Team Providers Care Progress Clerk Name Role Phone Marcio Devlin DO Primary Care Provider [phone] Encounter Details Date Type Department Care Team (Late st Contact Info) Description 11/11/2017 3:30 PM EST Office [place] [address] Nico Campbell DO Ankylosing spondylitis, [...] Progress Notes * Nico Campbell DO - 11/11/2017 3:30 PM EST Rheumatology [...] current medication regimen is Humira 40 mg k1qhton and Sulfasalazine 500mg BID-both of which she [...] AM EST Hospital Encounter Non-[place] [address] Arrived 11/12/2024 8:00 AM EST Appointment Mammography/[place] [phone] Gabe Fong MD [facility] [address] [place] [address] 11/30/2024 2:30 PM EDT Office [place] [address] Gabe Fong MD [facility] [place] [address] 12/07/2024 2:30 PM EDT TH Visit (TeleHealth) [place] [address] Rosemarie Morrow APRN [facility] [place] [address] documented as of this encounter [...] 4:11 PM EST) Neutrophil % 48.1 % [facility] Neutrophil Absolute 4.20 1.70 - 6.10 x10(3)/mc L [facility] Lymph % 38.8 % [facility] Lymphocytes Abs 3.4(H) 0.9 - 3.2 x10(3)/mc L [facility] Monocyte % 10.3 % [facility] Monocyte Abs 0.9 0.3 - 0.9 x10(3)/mc L [facility] Eos % 1.9 % [facility] Eosinophils Abs 0.2 0.0 - 0.4 x10(3)/[facility] Basophil % 0.6 % [facility] Baso Absolute 0.0 0.0 - 0.1 x10(3)/[facility] Immature Gran % 0.30 % [facility] Comment: Immature granulocytes(IG's)percentage and absolute count will include metamyelocytes, myelocytes, and promyelocytes. Blood smears from CBCs yielding IG's will be scanned manually for concordance. If this scan disagrees with the automated IG or if promyelocytes are noted, a manual differential will be performed. Immature Gran Absolute 0.03 0.00 - 0.04 x10(3)/[facility] Blood specimen (specimen) 11/11/2017 4:11 PM EST 11/11/2017 4:32 PM EST Narrative Resulting Agency Comment Spec In Lab Nico Campbell DO HEMATOLOGY ORDERABLE S Performing Organization Address City/State/[facility] Co de Phone Number [facility] [place] [address] * (ABNORMAL) Hemogram (11/11/2017 4:11 PM EST) White Blood Cell 8.7 4.0 - 9.5 x10(3)/[facility] Red Blood Cell 5.25(H) 4.00 - 5.21 x10(6)/[facility] Hemoglobin 16.5(H) 11.7 - 15.5 gm/dL [facility] Hematocrit 47.4(H) 35.7 - 45.8 % [facility] Mean Cell Volume 90.3 82.6 - 94.4 fL [facility] Mean Cell Hemoglobin 31.4 27.1 - 32.0 pg [facility] Mean Cell Hemoglobin Concentration 34.8 31.7 - 35.0 gm/dL [facility] Platelet 193 145 - 357 x10(3)/mc L [facility] RDW Standard Deviation 42.3 37.0 - 46.0 fL [facility] RDW coefficient of variation 13.0 11.5 - 14.1 % [facility] Mean Platelet Volume 11.2 7.6 - 12.9 fL [facility] NRBC% auto 0.0 % [facility] NRBC Absolute 0.000 0.000 - 0.000 x10(3)/mc L [facility] Blood specimen (specimen) 11/11/2017 4:11 PM EST 11/11/2017 4:32 PM EST Narrative Resulting Agency Comment Spec In Lab Nico Campbell DO HEMATOLOGY ORDERABLE S [facility] [place] [address] * (ABNORMAL) Comprehensive metabolic panel (non-fasting) (11/11/2017 4:11 PM EST) Glucose 86 65 - 199 mg/dL [facility] Comment:Diabetes: >=200 mg/d L plus symptoms Blood Urea Nitrogen 15 8 - 18 mg/dL [facility] Creatinine 0.81 0.70 - 1.20 mg/dL [facility] Sodium 144 135 - 145 mmol/L [facility] Potassium 3.9 3.5 - 5.0 mmol/L [facility] Comment: Please note: ??Patients with WBC >100,000 may have falsely elevated Potassium levels. ??For accurate Potassium quantification in these patients send serum separator tube (gold top) for subsequent determinations. ??Contact the Clinical Chemistry Laboratory if there are any questions. Chloride 100 98 - 107 mmol/L [facility] Carbon Dioxide 30 22 - 31 mmol/L [facility] Anion Gap 14 5 - 15 mmol/L [facility] Calcium 9.7 8.5 - 10.5 mg/dL [facility] Protein, Total 7.5 6.1 - 8.0 gm/dL [facility] Albumin 4.2 3.2 - 5.2 gm/dL [facility] Aspartate Aminotransferase 43(H) 0 - 30 unit/L [facility] Alanine Aminotransferase 57(H) 0 - 30 unit/L [facility] Alkaline Phosphatase 94 40 - 104 unit/L [facility] Bilirubin, Total 0.3 0.2 - 1.3 mg/dL [facility] Est Glomerular Filtration Rate >60 >=60 [facility] Comment: The reported eGFR should be multiplied by 1.2 for patients. The MDRD is not an appropriate measure of renal function for patients with body mass extremes or in patients with acute kidney failure. http://Live Life 360/DHnkdep http://Live Life 360/DHMCnkf Blood specimen (specimen) 11/11/2017 4:11 PM EST 11/11/2017 4:32 PM EST Narrative Resulting Agency Comment Spec In Lab Truong Nick MD CHEMISTRY ORDERABLES [facility] [place] [address] documented in this encounter Visit Diagnoses Diagnosis Ankylosing spondylitis, unspecified site of spine- Primary documented in this encounter Care Teams Progress Clerk Relationship Specialty Start Date End Date Marcio Devlin DO [address] [place] [address] PCP - General Family Medicine 11/11/17 documented as of this encounter
--- OUTSIDE RECORDS SUMMARY | 2024-10-04 16:10 | XMS_ITS | Encounter Summary ---
[place] [address] Care Team Providers Care Java J2Ee Technical Lead Name Role Phone Marcio Carranza MD Primary Care Provider [phone] Reason for Visit * Reason Onset Date Comments Medication Refill 04/06/2015 Encounter Details Date Type Department Care Team (Late st Contact Info) Description 04/06/2015 [place] [phone] Rian Castro MD Ankylosing spondylitis of cervical region Social [...] AM EST Hospital Encounter Non-[place]vasive [place] [phone] Arrived 11/12/2024 8:00 AM EST Appointment [place]ography[place] [phone] Gabe Fong MD [facility] [address] 11/30/2024 2:30 PM EDT Office Visit Rheumatology at [place] [address] Gabe Fong MD [facility] [place] [address] 12/07/2024 2:30 PM EDT TH Visit (TeleHealth) [place] [address] Rosemarie Morrow APRN [facility] [place] [address] documented as of this encounter Visit Diagnoses Diagnosis Ankylosing spondylitis of cervical region Ankylosing spondylitis documented in this encounter Care Teams Java J2Ee Technical Lead Relationship Specialty Start Date End Date Marcio Carranza MD [address] [place] [address] PCP - General 08/07/10 11/10/17 documented as of this encounter
--- OUTSIDE RECORDS SUMMARY | 2024-10-04 16:10 | XMS_ITS | Encounter Summary ---
Author Organization [facility] [place] [address] Care Team Providers Care Drafter (Cad) Electronic Name Role Phone Marcio Carranza MD Primary Care Provider [phone] Encounter Details Date Type Department Care Team (Late st Contact Info) Description 08/14/2017 Telephone [place] [phone] Nico Campbell DO Social History Tobacco Use [...] Hospital Encounter Non-Invasive [place] [phone] Arrived 11/12/2024 8:00 AM EST Appointment Mammography/[place] [address] Gabe Fong MD [facility] [place] [address] 11/30/2024 2:30 PM EDT Office Visit Rheumatology at [place] [address] Gabe Fong MD [facility] [place] [address] 12/07/2024 2:30 PM EDT TH Visit (TeleHealth) Gastroenterology at [place] [phone] Rosemarie Morrow, SKIP [facility] [place] [address] documented as of this encounter Visit Diagnoses Not on filedocumented in this encounter Care Teams Drafter (Cad) Electronic Relationship Specialty Start Date End Date Marcio Carranza MD [address] [place] [address] PCP - General 08/07/10 11/10/17 documented as of this encounter
--- OUTSIDE RECORDS SUMMARY | 2024-10-04 16:10 | XMS_ITS | Encounter Summary ---
[place] [address] Care Team Providers Care Feedmobile Driver Name Role Phone Marcio Carranza MD Primary Care Provider [phone] Reason for Visit * Reason Comments Medication Refill Encounter Details Date Type Department Care Team (Late st Contact Info) Description 12/11/2016 Refill [place] [address] Albert Saenz MD Ankylosing spondylitis of cervical [...] AM EST Hospital Encounter Non-In[place] [address] Arrived 11/12/2024 8:00 AM EST Appointment Mammography/[place] [address] Gabe Fong MD [facility] [place] [address] 11/30/2024 2:30 PM EDT Office Visit Rheumatology at [place] [phone] Gabe Fong MD [facility] [place] [address] 12/07/2024 2:30 PM EDT TH Visit (TeleHealth) [place] [address] Rosemarie Morrow, SKIP [facility] [place] [address] documented as of this encounter Visit Diagnoses Diagnosis Ankylosing spondylitis of cervical region Ankylosing spondylitis documented in this encounter Care Teams Feedmobile Driver Relationship Specialty Start Date End Date Marcio Carranza MD [address] [place] [address] PCP - General 08/07/10 11/10/17 documented as of this encounter
--- OUTSIDE RECORDS SUMMARY | 2024-10-04 16:10 | XMS_ITS | Encounter Summary ---
Author Organization [place] [address] Care Team Providers Care Director Operating Room Name Role Phone Marcio Carranza MD Primary Care Provider [phone] [phone] Encounter Details Date Type Department Care Team (Late st Contact Info) Description 08/14/2017 11:00 AM EST Office [place] [phone] Nico Campbell DO Ankylosing spondylitis, unspecified site [...] Progress Notes * Nico Campbell DO - 08/14/2017 11:00 AM EST Rheumatology [...] current medication regimen is Humira 40 mg [id number] and Sulfasalazine 500mg BID-both of which she [...] colitis related arthropathy. She was currently on [id number] in conjunction with twice daily sulfasalazine for [...] Hospital Encounter Non-[place] [address] Arrived 11/12/2024 8:00 AM EST Appointment Mammography/DXA at [address] Gabe Fong MD [facility] [place] [address] 11/30/2024 2:30 PM EDT Office Visit Rheumatology at [place] [phone] Gabe Fong MD [facility] [place] [address] 12/07/2024 2:30 PM EDT TH Visit (TeleHealth) Gastroenterology at [place] [phone] Rosemarie Morrow, LEAK INSPECTOR [facility] [place] [address] documented as of this encounter Procedures Procedure [...] 12:06 PM EST) Neutrophil % 41.8 % [facility] Neutrophil Absolute 2.90 1.70 - 6.10 x10(3)/[facility] LAB[facility] Lymph % 46.0 % [facility] Lymphocytes Abs 3.2 0.9 - 3.2 x10(3)/[facility] LABORATORY Monocyte % 9.0 % [facility] Monocyte Abs 0.6 0.3 - 0.9 x10(3)/[facility] LABORATORY Eos % 2.2 % [facility] Eosinophils Abs 0.2 0.0 - 0.4 x10(3)/[facility] LABORATORY Basophil % 0.7 % [facility] Baso Absolute 0.0 0.0 - 0.1 x10(3)/[facility] LABORATORY Immature Gran % 0.30 % [facility] Comment: Immature granulocytes(IG's)percentage and absolute count will include metamyelocytes, myelocytes, and promyelocytes. Blood smears from CBCs yielding IG's will be scanned manually for concordance. If this scan disagrees with the automated IG or if promyelocytes are noted, a manual differential will be performed. Immature Gran Absolute 0.02 0.00 - 0.04 x10(3)/[facility] LABORATORY Blood specimen (specimen) 08/14/2017 12:06 PM EST 08/14/2017 12:10 PM EST Narrative Resulting Agency Comment Spec In Lab Truong Nick MD HEMATOLOGY ORDERABLE S [facility] [place] [address] * (ABNORMAL) Hemogram (08/14/2017 12:06 PM EST) White Blood Cell 6.9 4.0 - 9.5 x10(3)/[facility] LABORATORY Red Blood Cell 5.32(H) 4.00 - 5.21 x10(6)/ L [facility] Hemoglobin 16.2(H) 11.7 - 15.5 gm/dL [facility] Hematocrit 49.0(H) 35.7 - 45.8 % [facility] Mean Cell Volume 92.1 82.6 - 94.4 fL [facility] Mean Cell Hemoglobin 30.5 27.1 - 32.0 pg [facility] Mean Cell Hemoglobin Concentration 33.1 31.7 - 35.0 gm/dL [facility] Platelet 196 145 - 357 x10(3)/[facility] LABORATORY RDW Standard Deviation 43.8 37.0 - 46.0 [facility] LAB[facility]ATORY RDW coefficient of variation 13.1 11.5 - 14.1 % [facility] Mean Platelet Volume 11.1 7.6 - 12.9 fL [facility] NRBC% auto 0.0 % [facility] NRBC Absolute 0.000 0.000 - 0.000 x10(3)/[facility] LABORATORY Blood specimen (specimen) 08/14/2017 12:06 PM EST 08/14/2017 12:10 PM EST Narrative Resulting Agency Comment Spec In Lab Truong Nick MD HEMATOLOGY ORDERABLE S [facility] [place] [address] * (ABNORMAL) Comprehensive metabolic panel (non-fasting) (08/14/2017 12:06 PM EST) Glucose 107 65 - 199 mg/dL [facility] Comment:Diabetes: >=200 mg/d L plus symptoms Blood Urea Nitrogen 17 8 - 18 mg/dL [facility] Creatinine 0.81 0.70 - 1.20 mg/dL [facility] Sodium 145 135 - 145 mmol/L [facility] Potassium 4.3 3.5 - 5.0 mmol/L [facility] Comment: Please note: ??Patients with WBC >100,000 may have falsely elevated Potassium levels. ??For accurate Potassium quantification in these patients send serum separator tube (gold top) for subsequent determinations. ??Contact the Clinical Chemistry Laboratory if there are any questions. Chloride 103 98 - 107 mmol/L [facility] Carbon Dioxide 30 22 - 31 mmol/L [facility] Anion Gap 12 5 - 15 mmol/L [facility] Calcium 9.9 8.5 - 10.5 mg/dL [facility] Protein, Total 7.8 6.1 - 8.0 gm/dL [facility] Albumin 4.1 3.2 - 5.2 gm/dL [facility] Aspartate Aminotransferase 75(H) 0 - 30 unit/L [facility] Alanine Aminotransferase 84(H) 0 - 30 unit/L [facility] Alkaline Phosphatase 91 40 - 104 unit/L [facility] Bilirubin, Total 0.4 0.2 - 1.3 mg/dL [facility] Est Glomerular Filtration Rate >60 >=60 [facility] Comment: The reported eGFR should be multiplied by 1.2 for patients. The MDRD is not an appropriate measure of renal function for patients with body mass extremes or in patients with acute kidney failure. [email or web address] [email or web address] Blood specimen (specimen) 08/14/2017 12:06 PM EST 08/14/2017 12:10 PM EST Narrative Resulting Agency Comment Spec In Lab Truong Nick MD CHEMISTRY ORDERABLES Performing Organization Address City/State/[facility] Co de Phone Number [facility] [place] [address] documented in this encounter Visit Diagnoses Diagnosis Ankylosing spondylitis, unspecified site of spine- Primary documented in this encounter Care Teams Director Operating Room Relationship Specialty Start Date End Date Marcio Carranza MD [address] [facility] [place] [address] PCP - General 08/07/10 11/10/17 documented as of this encounter
--- OUTSIDE RECORDS SUMMARY | 2024-10-04 16:10 | XMS_ITS | Encounter Summary ---
Author Organization [facility] [place] [address] Care Team Providers Care Stereo Map Plotter Operator Name Role Phone Marcio Carranza MD Primary Care Provider [phone] [phone] Encounter Details Date Type Department Care Team (Late st Contact Info) Description 01/02/2017 1:45 PM EDT Office [place] [address] Albert Saenz MD Spondyloarthritis; Ankylosing spondylitis of cervical region Social [...] CMP,CBC today. - Vaccinations- Premovax- 2013, prevnar 2015 - Bone health: Rpt DEXA (02/28)- [...] AM EST Hospital Encounter Non[place] [phone] Arrived 11/12/2024 8:00 AM EST Appointment Mammography/[place] [phone] Gabe Fong MD [facility] [place] [address] 11/30/2024 2:30 PM EDT Office [place] [phone] Gabe Fong MD [facility] [place] [address] 12/07/2024 2:30 PM EDT TH Visit (TeleHealth) [place] [address] Rosemarie Morrow APRN [facility] [place] [address] documented as of this encounter [...] 2:31 PM EDT) Neutrophil % 46.5 % [facility] Neutrophil Absolute 3.93 1.70 - 6.10 x10(3)/mc L [facility] Lymph % 40.1 % [facility] Lymphocytes Abs 3.4(H) 0.9 - 3.2 x10(3)/mc L [facility] Monocyte % 11.1 % [facility] Monocyte Abs 0.9 0.3 - 0.9 x10(3)/mc L [facility] Eos % 1.3 % [facility] Eosinophils Abs 0.1 0.0 - 0.4 x10(3)/[facility] LABORATORY Basophil % 0.5 % [facility] Baso Absolute 0.0 0.0 - 0.1 x10(3)/[facility] LABORATORY Immature Gran % 0.50 % [facility] Comment: Immature granulocytes(IG's)percentage and absolute count will include metamyelocytes, myelocytes, and promyelocytes. Blood smears from CBCs yielding IG's will be scanned manually for concordance. If this scan disagrees with the automated IG or if promyelocytes are noted, a manual differential will be performed. Immature Gran Absolute 0.04 0.00 - 0.04 x10(3)/[facility] LABOR[facility]ORY Blood specimen (specimen) 01/02/2017 2:31 PM EDT 01/02/2017 2:36 PM EDT Narrative Resulting Agency Comment Spec In Lab Dayton Sarkar II, DO HEMATOLOGY ORDER EDUAR [facility] [place] [address] * Hemogram (01/02/2017 2:31 PM EDT) White Blood Cell 8.4 4.0 - 9.5 x10(3)/[facility] LABORATORY Red Blood Cell 4.91 4.00 - 5.21 x10(6)/[facility] LABORATORY Hemoglobin 15.5 11.7 - 15.5 gm/dL [facility] Hematocrit 44.7 35.7 - 45.8 % [facility] Mean Cell Volume 91.0 82.6 - 94.4 fL [facility] Mean Cell Hemoglobin 31.6 27.1 - 32.0 pg [facility] Mean Cell Hemoglobin Concentration 34.7 31.7 - 35.0 gm/dL [facility] Platelet 260 145 - 357 x10(3)/[facility] LABORATORY RDW Standard Deviation 41.6 37.0 - 46.0 fL [facility] RDW coefficient of variation 12.6 11.5 - 14.1 % [facility] Mean Platelet Volume 10.6 7.6 - 12.9 fL [facility] NRBC% auto 0.0 % [facility] NRBC Absolute 0.000 0.000 - 0.000 x10(3)/[facility] LABORATORY Blood specimen (specimen) 01/02/2017 2:31 PM EDT 01/02/2017 2:36 PM EDT Narrative Resulting Agency Comment Spec In Lab Dayton Sarkar II, DO HEMATOLOGY ORDER EDUAR Performing Organization Address [facility] Co de Phone Number [facility] [place] [address] * (ABNORMAL) CRP, acute inflammation (01/02/2017 2:31 PM EDT) C-Reactive Protein 5.2(H) <=4.9 mg/L [facility] Blood specimen (specimen) 01/02/2017 2:31 PM EDT 01/02/2017 2:36 PM EDT Narrative Resulting Agency Comment Spec In Lab Dayton Sarkar II, DO CHEMISTRY ORDERA BLES Performing Organization Address [facility]/ZIP Co de Phone Number [facility] [place] [address] * (ABNORMAL) Comprehensive metabolic panel (non-fasting) (01/02/2017 2:31 PM EDT) Glucose 117 65 - 199 mg/dL [facility] Comment:Diabetes: >=200 mg/d L plus symptoms Blood Urea Nitrogen 14 8 - 18 mg/dL [facility] Creatinine 0.68(L) 0.70 - 1.20 mg/dL [facility] Comment: Please note that the pediatric reference intervals supplied above were not validated at [facility]. Results from pediatric patients should be interpreted in conjunction to the patient's age, height and muscle mass. Sodium 142 135 - 145 mmol/L [facility] Potassium 3.9 3.5 - 5.0 mmol/L [facility] Comment: Please note: ??Patients with WBC >100,000 may have falsely elevated Potassium levels. ??For accurate Potassium quantification in these patients send serum separator tube (gold top) for subsequent determinations. ??Contact the Clinical Chemistry Laboratory if there are any questions. Chloride 102 98 - 107 mmol/L [facility] Carbon Dioxide 30 22 - 31 mmol/L [facility] Anion Gap 10 5 - 15 mmol/L [facility] Calcium 9.5 8.5 - 10.5 mg/dL [facility] Protein, Total 7.4 6.1 - 8.0 gm/dL [facility] Albumin 4.0 3.2 - 5.2 gm/dL [facility] Aspartate Aminotransferase 31(H) 0 - 30 unit/L [facility] Alanine Aminotransferase 34(H) 0 - 30 unit/L [facility] Alkaline Phosphatase 82 40 - 104 unit/L [facility] Bilirubin, Total 0.3 0.2 - 1.3 mg/dL [facility] Bilirubin, Direct 0.1 0.0 - 0.3 mg/dL [facility] Est Glomerular Filtration Rate >60 >=60 [facility] Comment: This estimated GFR (eGFR) [...] the following links into your internet browser. [email or web address] Blood specimen (specimen) 01/02/2017 2:31 PM EDT 01/02/2017 2:36 PM EDT Narrative Resulting Agency Comment Spec In Lab Dayton Sarkar II, DO CHEMISTRY ORDERA BLES Performing Organization Address City/State/[facility] Co de Phone Number [facility] [place] [address] documented in this encounter Visit Diagnoses Diagnosis Spondyloarthritis Spondylosis of unspecified site without mention of myelopathy Ankylosing spondylitis of cervical region Ankylosing spondylitis documented in this encounter Care Teams Stereo Map Plotter Operator Relationship Specialty Start Date End Date Marcio Carranza MD [address] [place] [address] PCP - General 08/07/10 11/10/17 documented as of this encounter
--- OUTSIDE RECORDS SUMMARY | 2024-10-04 16:10 | XMS_ITS | Encounter Summary ---
Author Organization [facility] [place] [address] Care Team Providers Care Bacteriologist Soil Name Role Phone Marcio Carranza MD Primary Care Provider +1 [phone] Encounter Details Date Type Department Care Team (Late st Contact Info) Description 05/06/2017 4:15 PM EDT Office [place] [address] Nico Campbell DO Ankylosing spondylitis, [...] current medication regimen is Humira 40 mg [id number] and Sulfasalazine 500mg BID-both of which she [...] with UC managed on Humira 40 mg [id number] and Sulfasalazine 500 mg BID, which she [...] AM EST Hospital Encounter Non-Invasive [place] [phone] Arrived 11/12/2024 8:00 AM EST Appointment Mammography/[place] [phone] Gabe Fong MD [facility] [place] [address] 11/30/2024 2:30 PM EDT Office [place] [address] Gabe Fong MD [facility] [place] [address] 12/07/2024 2:30 PM EDT TH Visit (TeleHealth) [place] [address] Rosemarie Morrow APRN [facility] [place] [address] documented as of this encounter [...] * Differential, Automated (05/06/2017 5:03 PM EDT) Neutrophil % 47.2 % [facility] Neutrophil Absolute 3.79 1.70 - 6.10 x10(3)/[facility] LABORATORY Lymph % 39.6 % [facility] Lymphocytes Abs 3.2 0.9 - 3.2 x10(3)/[facility] LABORATORY Monocyte % 10.4 % [facility] Monocyte Abs 0.8 0.3 - 0.9 x10(3)/[facility] LABORATORY Eos % 1.9 % [facility] Eosinophils Abs 0.2 0.0 - 0.4 x10(3)/[facility] LABORATORY Basophil % 0.5 % [facility] Baso Absolute 0.0 0.0 - 0.1 x10(3)/[facility] LABORATORY Immature Gran % 0.40 % [facility] Comment: Immature granulocytes(IG's)percentage and absolute count will include metamyelocytes, myelocytes, and promyelocytes. Blood smears from CBCs yielding IG's will be scanned manually for concordance. If this scan disagrees with the automated IG or if promyelocytes are noted, a manual differential will be performed. Immature Gran Absolute 0.03 0.00 - 0.04 x10(3)/[facility] LABORATORY Blood specimen (specimen) 05/06/2017 5:03 PM EDT 05/06/2017 5:10 PM EDT Narrative Resulting Agency Comment Spec In Lab Kasey Retana MD HEMATOLOGY ORDERABLE S Performing Organization Address City/State/[facility] Co de Phone Number [facility] [place] [address] * (ABNORMAL) Hemogram (05/06/2017 5:03 PM EDT) White Blood Cell 8.0 4.0 - 9.5 x10(3)/[facility] LABORATORY Red Blood Cell 5.03 4.00 - 5.21 x10(6)/[facility] LABORATORY Hemoglobin 15.4 11.7 - 15.5 gm/dL [facility] Hematocrit 46.2(H) 35.7 - 45.8 % [facility] Mean Cell Volume 91.8 82.6 - 94.4 fL [facility] Mean Cell Hemoglobin 30.6 27.1 - 32.0 pg [facility] Mean Cell Hemoglobin Concentration 33.3 31.7 - 35.0 gm/dL [facility] Platelet 204 145 - 357 x10(3)/[facility] LABORATORY RDW Standard Deviation 44.7 37.0 - 46.0 fL [facility] RDW coefficient of variation 13.2 11.5 - 14.1 % [facility] Mean Platelet Volume 11.0 7.6 - 12.9 fL [facility] NRBC% auto 0.0 % [facility] NRBC Absolute 0.000 0.000 - 0.000 x10(3)/mc L [facility] Blood specimen (specimen) 05/06/2017 5:03 PM EDT 05/06/2017 5:10 PM EDT Narrative Resulting Agency Comment Spec In Lab Kasey Retana MD HEMATOLOGY ORDERABLE S [facility] [place] [address] * (ABNORMAL) Comprehensive metabolic panel (non-fasting) (05/06/2017 5:03 PM EDT) Glucose 164 65 - 199 mg/dL [facility] Comment:Diabetes: >=200 mg/d L plus symptoms Blood Urea Nitrogen 15 8 - 18 mg/dL [facility] Creatinine 0.75 0.70 - 1.20 mg/dL [facility] Comment: Please note that the pediatric reference intervals supplied above were not validated at [facility]. Results from pediatric patients should be interpreted in conjunction to the patient's age, height and muscle mass. Sodium 142 135 - 145 mmol/L [facility] Potassium 4.0 3.5 - 5.0 mmol/L [facility] Comment: Please note: ??Patients with WBC >100,000 may have falsely elevated Potassium levels. ??For accurate Potassium quantification in these patients send serum separator tube (gold top) for subsequent determinations. ??Contact the Clinical Chemistry Laboratory if there are any questions. Chloride 102 98 - 107 mmol/L [facility] Carbon Dioxide 27 22 - 31 mmol/L [facility] Anion Gap 13 5 - 15 mmol/L [facility] Calcium 9.9 8.5 - 10.5 mg/dL [facility] Protein, Total 7.6 6.1 - 8.0 gm/dL [facility] Albumin 4.1 3.2 - 5.2 gm/dL [facility] Aspartate Aminotransferase 37(H) 0 - 30 unit/L [facility] Alanine Aminotransferase 42(H) 0 - 30 unit/L [facility] Alkaline Phosphatase 89 40 - 104 unit/L [facility] Bilirubin, Total 0.3 0.2 - 1.3 mg/dL [facility] Est Glomerular Filtration Rate >60 >=60 [facility] Comment: This estimated GFR [...] the following links into your internet browser. [email or web address] Blood specimen (specimen) 05/06/2017 5:03 PM EDT 05/06/2017 5:10 PM EDT Narrative Resulting Agency Comment Spec In Lab Kasey Retana MD CHEMISTRY ORDERABLES [facility] [place] [address] documented in this encounter Visit Diagnoses Diagnosis Ankylosing spondylitis, unspecified site of spine- Primary documented in this encounter Care Teams Bacteriologist Soil Relationship Specialty Start Date End Date Marcio Carranza MD [address] [place] [address] PCP - General 08/07/10 11/10/17 documented as of this encounter
--- OUTSIDE RECORDS SUMMARY | 2024-10-04 16:10 | XMS_ITS | Encounter Summary ---
Author Organization [facility] [place] [address] Care Team Providers Care Bridal Consultant Name Role Phone Marcio Carranza MD Primary Care Provider [phone] Encounter Details Date Type Department Care Team (Latest Contact Info) Description 03/04/2017 7:37 AM EDT - 03/04/2017 11:00 AM EDT Hospital En[place] [phone] Raúl Austin MD [facility] [place] [address] Discharge Disposition: Home Social History Tobacco Use [...] to be checked. Friday-Friday Same Day Endo [phone] 7a-8p Otherwise contact [phone] and ask to speak to the animal cytologist food operations manager Follow up care is a hernandez [...] Operative Note Patient Name: Kim Funes : [id number] MR#: [id number] Case Date: 03/04/2017 Surgeon: Surgeon(s) and Role: [...] Hospital Encounter Non-Invasive Cardiology Lab [place] [phone] Arrived 11/12/2024 8:00 AM EST Appointment Mammography/DXA at [place] [phone] Gabe Fong MD [facility] [place] [address] 11/30/2024 2:30 PM EDT Office Visit Rheumatology at [place] [phone] Gabe Fong MD [facility] [place] [address] 12/07/2024 2:30 PM EDT TH Visit (TeleHealth) Gastroenterology at [place] [phone] Rosemarie Morrow APRN [facility] [place] [address] documented as of this encounter Procedures Procedure [...] Report (03/04/2017 11:01 AM EDT) Final Diagnosis [id number] ?Location: 4; [facility]; A The signing pathologist has [...] ng: (T1) ??sns 03/07/2017 4:22 PM EDT [facility] GI Biopsy 03/04/2017 11:0 [...] AM EDT Raúl Austin MD PATHOLOGY/CYTOLOGY [place] [address] * Specimen to Pathology (surgical or derm) (03/04/2017 9:39 AM EDT) AP Specimen 03/04/2017 9:39 AM EDT 03/04/2017 9:39 AM EDT Narrative [facility] - 03/04/2017 9:39 AM EDT Specimen requisition ordered. ??Separate Pathology report to follow Raúl Austin MD PATHOLOGY/CYTOLOGY O IR[facility] Performing Organization Address [facility]/ZIP [place] [address] * Specimen to Pathology (surgical or derm) (03/04/2017 9:39 AM EDT) AP Specimen 03/04/2017 9:39 AM EDT 03/04/2017 9:39 AM EDT Narrative [facility] - 03/04/2017 9:39 AM EDT Specimen requisition ordered. ??Separate Pathology report to follow Raúl Austin MD PATHOLOGY/CYTOLOGY O IR[facility] Performing Organization Address City/[facility]/ZIP [place] [address] * Specimen to Pathology (surgical or derm) (03/04/2017 9:39 AM EDT) AP Specimen 03/04/2017 9:39 AM EDT 03/04/2017 9:39 AM EDT [facility] - 03/04/2017 9:39 AM EDT Specimen requisition ordered. ??Separate Pathology report to follow Raúl Austin MD PATHOLOGY/[place] [address] * Specimen to Pathology (surgical or derm) (03/04/2017 9:39 AM EDT) AP Specimen 03/04/2017 9:39 AM EDT 03/04/2017 9:39 AM EDT Narrative [facility] - 03/04/2017 9:39 AM EDT Specimen requisition ordered. ??Separate Pathology report to follow Raúl Austin MD PATHOLOGY/CYTOLOGY O IRMA Performing Organization Address [facility] [place] [address] * Specimen to Pathology (surgical or derm) (03/04/2017 9:39 AM EDT) AP Specimen 03/04/2017 9:39 AM EDT 03/04/2017 9:39 AM EDT Narrative [facility] - 03/04/2017 9:39 AM EDT Specimen requisition ordered. ??Separate Pathology report to follow Raúl Austin MD PATHOLOGY/CYTOLOGY O IRMA Performing Organization Address [facility] [place] [address] * Specimen to Pathology (surgical or derm) (03/04/2017 9:39 AM EDT) AP Specimen 03/04/2017 9:39 AM EDT 03/04/2017 9:39 AM EDT Narrative [facility] - 03/04/2017 9:39 AM EDT Specimen requisition ordered. ??Separate Pathology report to follow Raúl Austin MD PATHOLOGY/CYTOLOGY O IR[facility] Performing Organization Address [facility] [place] [address] * COLONOSCOPY (03/04/2017 7:44 AM EDT) COLONOSCOPY [facility] Endoscopy Procedure Date: 03/04/2017 7:44 AM ? Patient Name: Kim Funes ? Date of : 1960 ? Age: 56 ? Order #: [id number] ? Instrument Name: [id number] ? Procedure: ? Colonoscopy Indications: ? High [...] preparation was evaluated using ? the BBPS ([place] Bowel Preparation ? Scale) with scores of: [...] RN) documented in this encounter Care Teams Bridal Consultant Relationship Specialty Start Date End Date Marcio Carranza MD [address] [place] [address] PCP - General 08/07/10 11/10/17 documented as of this encounter
--- OUTSIDE RECORDS SUMMARY | 2024-10-04 16:10 | XMS_ITS | Encounter Summary ---
Author Organization [facility] Address [facility] [place] [address] Care Team Providers Care Jde Developer Name Role Phone Marcio Carranza MD Primary Care Provider [phone] Encounter Details Date Type Department Care Team (Latest Contact Info) Description 08/24/2015 4:51 PM EST - 08/24/2015 11:59 PM [facility] Hospital Encounter XRay at [address] [place]IA ALEJANDRA [place] [address] Brittani Martinez, [facility] [place] [address] Ankylosing spondylitis Discharge Disposition: Home Social History [...] AM EST Hospital Encounter Non-Invasive [place] [address] Arrived 11/12/2024 8:00 AM EST Appointment Mammography/DXA at [place] [phone] Gabe Fong MD [facility] [place] [address] 11/30/2024 2:30 PM EDT Office [place] [address] Gabe Fong MD [facility] [place] [address] [place] [address] 12/07/2024 2:30 PM EDT TH Visit (TeleHealth) Gastroenterology at [place] [phone] Rosemarie Morrow APRN [facility] [place] [address] documented as of this encounter Procedures Procedure [...] spondylitis documented in this encounter Care Teams Jde Developer Relationship Specialty Start Date End Date Marcio Carranza MD [address] [place] [address] PCP - General 08/07/10 11/10/17 documented as of this encounter
--- OUTSIDE RECORDS SUMMARY | 2024-10-04 16:10 | XMS_ITS | Encounter Summary ---
[place] [address] Care Team Providers Care Spanish Instructor Name Role Phone Marcio Devlin DO Primary Care Provider [phone] Reason for Visit * Reason Onset Date Comments Medication Refill 11/20/2017 Encounter Details Date Type Department Care Team (Late st Contact Info) Description 11/20/2017 Ref[place] [phone] Mark Good, RN Ankylosing spondylitis of cervical [...] AM EST Hospital Encounter Non-[place] [phone] Arrived 11/12/2024 8:00 AM EST Appointment Mammography/[place] [address] Gabe Fong MD [facility] [place] [address] 11/30/2024 2:30 PM EDT Office Visit Rheumatology at [address] Gabe Fong MD [facility] [place] [address] 12/07/2024 2:30 PM EDT TH Visit (TeleHealth) [place] [address] Rosemarie Morrow APRN [facility] [place] [address] documented as of this encounter Visit Diagnoses Diagnosis Ankylosing spondylitis of cervical region Ankylosing spondylitis documented in this encounter Care Teams Spanish Instructor Relationship Specialty Start Date End Date Marcio Devlin DO [address] [place] [address] PCP - General Family Medicine 11/11/17 documented as of this encounter
--- OUTSIDE RECORDS SUMMARY | 2024-10-04 16:10 | XMS_ITS | Encounter Summary ---
Author Organization [facility] [place] [address] Care Team Providers Care Seamless Hosiery Knitter Name Role Phone Marcio Carranza MD Primary Care Provider [phone] Encounter Details Date Type Department Care Team (Late st Contact Info) Description 08/24/2015 4:00 PM EST Office [place] [phone] Albert Saenz MD Ankylosing spondylitis Social History Tobacco Use Types [...] AM EST Hospital Encounter Non-Invasive [place] [address] Arrived 11/12/2024 8:00 AM EST Appointment Mammography/DXA at [place] [phone] Gabe Fong MD [facility] [address] 11/30/2024 2:30 PM EDT Office [place] [address] Gabe Fong MD [facility] [address] [place] [address] 12/07/2024 2:30 PM EDT TH Visit (TeleHealth) Gastroenterology at [place] [phone] Rosemarie Morrow APRN [facility] [place] [address] documented as of this encounter Procedures Procedure [...] High Sensitivity CRP (08/24/2015 4:45 PM EST) [facility] C-Reactive Protein High Sensitivity 1.8 mg/L [facility] Comment: Interpretations: 1) For accurate cardiac risk [...] DO CHEMISTRY ORDERA BLES Performing Organization Address [facility] de Phone Number [employer] * Sedimentation rate (08/24/2015 4:45 PM EST) Sedimentation Rate Automated 6 0 - 20 mm/hr CERNER MILLENNIUM Blood specimen (specimen) 08/24/2015 4:45 PM EST 08/24/2015 4:48 PM EST Narrative Resulting Agency Comment Spec In Lab Brittani Martinez DO HEMATOLOGY ORDER EDUAR Performing Organization Address [facility] de Phone Number [facility] [employer] documented in this encounter Visit Diagnoses Diagnosis Ankylosing spondylitis Ankylosing spondylitis Ankylosing spondylitis documented in this encounter Care Teams Seamless Hosiery Knitter Relationship Specialty Start Date End Date Marcio Carranza MD [address] [place] [address] PCP - General 08/07/10 11/10/17 documented as of this encounter
--- OUTSIDE RECORDS SUMMARY | 2024-10-04 16:10 | XMS_ITS | Encounter Summary ---
Author Organization [facility] [place] [address] Care Team Providers Care Powerhouse Mechanic Apprentice Name Role Phone Marcio Carranza MD Primary Care Provider [phone] Reason for Visit * Reason Comments Arthritis Encounter Details Date Type Department Care Team (Late st Contact Info) Description 09/14/2014 9:15 AM EST Follow-[place] [phone] Shola Whitlock DO Ankylosing spondylitis of cervical region Discharge Disposition: [...] associated Ankylosing Spondylitis - Currently on Humira [id number] and [id number] - Symptoms of cervical and [...] and no active skin lesions since restarting dwaine Whitlock D.O. Rheumatology Fellow +++Addendum+++ Results for [...] AM EST Hospital Encounter Non-Invasive [place]iology [place] [address] Arrived 11/12/2024 8:00 AM EST Appointment Mammography/[place] [address] Gabe Fong MD [facility] [address] [place] [address] 11/30/2024 2:30 PM EDT Office [place] [address] Gabe Fogn MD [facility] [address] [place] [address] 12/07/2024 2:30 PM EDT TH Visit (TeleHealth) Gastroenterology at [facility] [place] [address] Rosemarie Morrow, SKIP [facility] [place] [address] documented as of this encounter Procedures Procedure [...] Resulting Agency Comment Spec In Lab Brittani M Juan DO HEMATOLOGY ORDER EDUAR [facility] MILLENNIUM * (ABNORMAL) Comprehensive metabolic panel (non-fasting) (09/14/2014 10:12 AM EST) Glucose 211(H) 60 - 199 mg/dL CERNER MILLENNIUM Comment:Diabetes: >=200 mg/d L plus symptoms Blood Urea Nitrogen 19(H) 8 - 18 mg/dL CERNER MILLENNIUM Creatinine 0.89 0.70 - 1.20 mg/dL CERNER MILLENNIUM Comment: Please note that the pediatric reference intervals supplied above were not validated at [facility]. Results from pediatric patients should be interpreted [...] the following links into your internet browser. [email or web address] Blood specimen (specimen) 09/14/2014 10:12 AM EST 09/14/2014 10:20 AM EST Narrative Resulting Agency Comment Spec In Lab Brittani Martinez DO CHEMISTRY DARI MOREJON Performing Organization Address [facility]/State/ZIP Co de Phone Number [facility] ELLIOTTMigo SoftwareFIRSTHEALTH * High Sensitivity CRP (09/14/2014 10:12 AM EST) [facility] C-Reactive Protein High Sensitivity 2.4 mg/L [facility] Comment: Interpretations: 1) For accurate cardiac [...] Resulting Agency Comment Spec In Lab Brittani M Orzechowski DO CHEMISTRY ORDERA BLES [facility] * Sedimentation rate (09/14/2014 10:12 AM EST) Sedimentation Rate Automated 6 0 - 20 mm/hr [facility] Blood specimen (specimen) 09/14/2014 10:12 AM EST 09/14/2014 10:20 AM EST Narrative Resulting Agency Comment Spec In Lab Brittani Martinez DO HEMATOLOGY ORDER EDUAR [facility] documented in this encounter Visit Diagnoses Diagnosis Ankylosing spondylitis of cervical region Ankylosing spondylitis documented in this encounter Care Teams Powerhouse Mechanic Apprentice Relationship Specialty Start Date End Date Marcio Carranza MD [address] [place] [address] PCP - General 08/07/10 11/10/17 documented as of this encounter
--- OUTSIDE RECORDS SUMMARY | 2024-10-04 16:10 | XMS_ITS | Encounter Summary ---
[place] [address] Care Team Providers Care Sales Account Director Name Role Phone Marcio Devlin DO Primary Care Provider [phone] Reason for Visit * Reason Comments Medication Refill Encounter Details Date Type Department Care Team (Late st Contact Info) Description 04/06/2015 [place] [address] Shola Whitlock DO Social History Tobacco Use Types Packs/Day [...] AM EST Hospital Encounter Non[place] [address] Arrived 11/12/2024 8:00 AM EST Appointment Mammography[place] [address] Gabe Fong MD [facility] [place] [address] 11/30/2024 2:30 PM EDT Office Visit Rheumatology at [place] 1890256[address] Gabe Fong MD [facility] [place] [address] 12/07/2024 2:30 PM EDT TH Visit (TeleHealth) [place] [address] Rosemarie Morrow APRN [facility] [place] [address] documented as of this encounter Visit Diagnoses Not on filedocumented in this encounter Care Teams Sales Account Director Relationship Specialty Start Date End Date Marcio Devlin DO [address] [place] [address] PCP - General Family Medicine 11/11/17 documented as of this encounter
--- OUTSIDE RECORDS SUMMARY | 2024-10-04 16:10 | XMS_ITS | Encounter Summary ---
Author Organization [facility] [place] [address] Care Team Providers Care Aircraft Part Assembler Name Role Phone Marcio Carranza MD Primary Care Provider [phone] Encounter Details Date Type Department Care Team (Late st Contact Info) Description 03/04/2017 9:00 AM EDT - 03/04/2017 9:45 AM EDT [place] [address] Austin MD [facility] [place] [address] COLONOSCOPY FLEXIBLE, WITH BX (WRVU 3.56) Social [...] to be checked. Friday-Friday Same Day Endo [phone] 7a-8p Otherwise contact [phone] and ask to speak to the corporate director talent assessment distributor sales consultant Follow up care is a hernandez [...] Austin MD - 03/04/2017 9:36 AM EDT [facility] Operative Note Patient Name: Kim Funes : [id number] MR#: [id number] Case Date: 03/04/2017 Surgeon: Surgeon(s) and Role: [...] AM EST Hospital Encounter Non-Invasive Cardiology Lab [place] [phone] Arrived 11/12/2024 8:00 AM EST Appointment Mammography/[place] [address] [facility] [place] [address] 11/30/2024 2:30 PM EDT Office Visit Rheumatology at [place] [phone] [facility] [place] [address] 12/07/2024 2:30 PM EDT TH Visit (TeleHealth) Gastroenterology at [place] [phone] Rosemarie Morrow, SKIP [facility] [place] [address] documented as of this encounter Procedures Procedure [...] Report (03/04/2017 11:01 AM EDT) Final Diagnosis [id number] ?Location: 4T; 09; A The signing pathologist [...] ng: (T1) ??sns 03/07/2017 4:22 PM EDT [facility] GI Biopsy 03/04/2017 11:0 [...] AM EDT Raúl Austin MD PATHOLOGY/CYTOLOGY O RDERABLES [facility] [place] [address] * Specimen to Pathology (surgical or derm) (03/04/2017 9:39 AM EDT) AP Specimen 03/04/2017 9:39 AM EDT 03/04/2017 9:39 AM EDT Narrative [facility] - 03/04/2017 9:39 AM EDT Specimen requisition ordered. ??Separate Pathology report to follow Raúl Austin MD PATHOLOGY/CYT[place]Y [place] [address] * Specimen to Pathology (surgical or derm) (03/04/2017 9:39 AM EDT) AP Specimen 03/04/2017 9:39 AM EDT 03/04/2017 9:39 AM EDT Narrative [facility] - 03/04/2017 9:39 AM EDT Specimen requisition ordered. ??Separate Pathology report to follow Raúl Austin MD PATHOLOGY/CYTOLOGY O IRMA Performing Organization Address City/[facility]/ZIP Co [place] [address] * Specimen to Pathology (surgical or derm) (03/04/2017 9:39 AM EDT) AP Specimen 03/04/2017 9:39 AM EDT 03/04/2017 9:39 AM EDT Narrative [facility] - 03/04/2017 9:39 AM EDT Specimen requisition ordered. ??Separate Pathology report to follow Raúl Austin MD PATHOLOGY/CYTOLOGY O IRMA Performing Organization Address City/[facility]/ZIP [place] [address] * Specimen to Pathology (surgical or derm) (03/04/2017 9:39 AM EDT) AP Specimen 03/04/2017 9:39 AM EDT 03/04/2017 9:39 AM EDT Narrative [facility] - 03/04/2017 9:39 AM EDT Specimen requisition ordered. ??Separate Pathology report to follow Raúl Austin MD PATHOLOGY/CYTOLOGY O IRMA Performing Organization Address [facility] [place] [address] * Specimen to Pathology (surgical or derm) (03/04/2017 9:39 AM EDT) AP Specimen 03/04/2017 9:39 AM EDT 03/04/2017 9:39 AM EDT Narrative [facility] - 03/04/2017 9:39 AM EDT Specimen requisition ordered. ??Separate Pathology report to follow Raúl Austin MD PATHOLOGY/CYTOLOGY O IRMA Performing Organization Address [facility] [place] [address] * Specimen to Pathology (surgical or derm) (03/04/2017 9:39 AM EDT) AP Specimen 03/04/2017 9:39 AM EDT 03/04/2017 9:39 AM EDT Narrative [facility] - 03/04/2017 9:39 AM EDT Specimen requisition ordered. ??Separate Pathology report to follow Raúl Austin MD PATHOLOGY/CYTOLOGY O IRMA Performing Organization Address [facility] [place] [address] * COLONOSCOPY (03/04/2017 7:44 AM EDT) COLONOSCOPY [facility] Endoscopy Procedure Date: 03/04/2017 7:44 AM ? Patient Name: Kim Funes ? Date of : 1960 ? Age: 56 ? Order #: [id number] ? Instrument Name: [id number] ? Procedure: ? Colonoscopy Indications: ? High [...] preparation was evaluated using ? the BBPS ([place] Bowel Preparation ? Scale) with scores of: [...] RN) documented in this encounter Care Teams Aircraft Part Assembler Relationship Specialty Start Date End Date Marcio Carranza MD [address] [place] [address] PCP - General 08/07/10 11/10/17 documented as of this encounter
--- OUTSIDE RECORDS SUMMARY | 2024-10-04 16:10 | XMS_ITS | Encounter Summary ---
Author Organization [facility] [place] [address] Care Team Providers Care Information Technology Data Analyst Name Role Phone Marcio Carranza MD Primary Care Provider [phone] Reason for Visit * Reason Comments Psoriasis Encounter Details Date Type Department Care Team (Late st Contact Info) Description 07/26/2014 2:30 PM EST Follow-Up Dermatology at [facility] [address] [place] [address] July Pack MD Psoriasis; Panniculitis Discharge Disposition: Home Social History [...] encounter. July Pack MD Resident in Dermatology [facility] Patient seen and evaluated with staff chimney construction supervisor: Cara Cartagena MD Section of Dermatology [facility] documented in this encounter Plan of Treatment Upcoming Encounters Date Type Department Care Team (Late st Contact Info) Description 10/16/2024 10:00 AM EST Hospital Encounter Non-Invasive Cardiology Lab [place] [address] Arrived 11/12/2024 8:00 AM EST Appointment Mammography/DXA at [place] [address] Gabe Fong MD [facility] [place] [address] 11/30/2024 2:30 PM EDT Office Visit Rheumatology at [place] [address] Gabe Fong MD [facility] [place] [address] 12/07/2024 2:30 PM EDT TH Visit (TeleHealth) Gastroenterology at [place] [phone] Rosemarie Morrow APRN [facility] [place] [place] [address] documented as of this encounter Visit Diagnoses Diagnosis Psoriasis Other psoriasis Panniculitis Panniculitis, unspecified site documented in this encounter Care Teams Information Technology Data Analyst Relationship Specialty Start Date End Date Marcio Carranza MD [address] [place] [address] PCP - General 08/07/10 11/10/17 documented as of this encounter
--- OUTSIDE RECORDS SUMMARY | 2024-10-04 16:10 | XMS_ITS | Encounter Summary ---
Author Organization [facility] [place] [address] Care Team Providers Care Shipping Checker Name Role Phone Marcio Devlin DO Primary Care Provider [phone] Encounter Details Date Type Department Care Team (Latest Contact Info) Description 01/26/2018 11:30 AM EDT Procedure [place] [phone] Rian Castro MD Ankylosing spondylitis, unspecified site of spine Social [...] Images are available on the Rheumatology Image Generator Worker Archive. Images of the left hand demonstrate [...] Hospital Encounter Non-Invasive Cardiology Lab [place] [phone] Arrived 11/12/2024 8:00 AM EST Appointment Mammography/[place] [address] Gabe Fong MD [facility] [address] [place] [address] 11/30/2024 2:30 PM EDT Office Visit Rheumatology at [place] [phone] Gabe Fong MD [facility] [address] [place] [address] 12/07/2024 2:30 PM EDT TH Visit (TeleHealth) [place] [phone] Rosemarie Morrow APRN [facility] [place] [address] documented as of this encounter Visit Diagnoses Diagnosis Ankylosing spondylitis, unspecified site of spine documented in this encounter Care Teams Shipping Checker Relationship Specialty Start Date End Date Marcio Devlin, [address] [place] [address] PCP - General Family Medicine 11/11/17 documented as of this encounter
--- OUTSIDE RECORDS SUMMARY | 2024-10-04 16:10 | XMS_ITS | Encounter Summary ---
Author Organization [place] [address] Care Team Providers Care Vacuum Plastic Forming Machine Operator Name Role Phone Marcio Carranza MD Primary Care Provider [phone] Encounter Details Date Type Department Care Team (Late st Contact Info) Description 09/27/2016 11:00 AM EST [place] [phone] Albert Saenz MD Ankylosing spondylitis Social History [...] of RA. - Vaccinations- Premovax- 2013, prevnar 2015 - [...] AM EST Hospital Encounter Non[place] [address] Arrived 11/12/2024 8:00 AM EST Appointment Mammography[place] [address] Gabe Fong MD [facility] [place] [address] 11/30/2024 2:30 PM EDT Office Visit Rheumatology at [place] [phone] Gabe Fong MD [facility] [place] [address] 12/07/2024 2:30 PM EDT TH Visit (TeleHealth) Gastroenterology at [place] [phone] Rosemarie Morrow APRN [facility] [place] [address] documented as of this encounter Procedures Procedure [...] 12:10 PM EST) Neutrophil % 47.3 % [facility] Neutrophil Absolute 3.79 1.70 - 6.10 x10(3)/[facility] Lymph % 38.4 % [facility] Lymphocytes Abs 3.1 0.9 - 3.2 x10(3)/[facility] LAB[facility] Monocyte % 9.6 % [facility] Monocyte Abs 0.8 0.3 - 0.9 x10(3)/[facility] LABOR[facility]ORY Eos % 3.6 % [facility] Eosinophils Abs 0.3 0.0 - 0.4 x10(3)/[facility] LAB[facility] Basophil % 0.8 % [facility] Baso Absolute 0.1 0.0 - 0.1 x10(3)/[facility] LABORATORY Immature Gran % 0.30 % [facility] Comment: Immature granulocytes(IG's)percentage and absolute count will include metamyelocytes, myelocytes, and promyelocytes. Blood smears from CBCs yielding IG's will be scanned manually for concordance. If this scan disagrees with the automated IG or if promyelocytes are noted, a manual differential will be performed. Immature Gran Absolute 0.02 0.00 - 0.04 x10(3)/mcL [facility] Blood specimen (specimen) 09/27/2016 12:10 PM EST 09/27/2016 12:20 PM EST Narrative Resulting Agency Comment Spec In Lab Brittani Martinez DO HEMATOLOGY ORDER EDUAR [facility] [place] [address] * (ABNORMAL) Hemogram (09/27/2016 12:10 PM EST) White Blood Cell 8.0 4.0 - 9.5 x10(3)/mc L [facility] Red Blood Cell 5.16 4.00 - 5.21 x10(6)/mc L [facility] Hemoglobin 15.9(H) 11.7 - 15.5 gm/dL [facility] Hematocrit 48.0(H) 35.7 - 45.8 % [facility] Mean Cell Volume 93.0 82.6 - 94.4 fL [facility] Mean Cell Hemoglobin 30.8 27.1 - 32.0 pg [facility] Mean Cell Hemoglobin Concentration 33.1 31.7 - 35.0 gm/dL [facility] Platelet 188 145 - 357 x10(3)/mc L [facility] RDW Standard Deviation 44.2 37.0 - 46.0 fL [facility] RDW coefficient of variation 12.9 11.5 - 14.1 % [facility] Mean Platelet Volume 10.9 7.6 - 12.9 fL [facility] NRBC% auto 0.0 % [facility] NRBC Absolute 0.000 0.000 - 0.000 x10(3)/mc L [facility] Blood specimen (specimen) 09/27/2016 12:10 PM EST 09/27/2016 12:20 PM EST Narrative Resulting Agency Comment Spec In Lab Brittani Martinez DO HEMATOLOGY ORDER EDUAR Performing Organization Address City/[facility]/ZIP Co de Phone Number [facility] [place] [address] * Cyclic Citrullinated Peptide (09/27/2016 12:10 PM EST) Cyclic Citrulline Peptide <8.0 <=17.0 unit/mL [facility] Blood specimen (specimen) 09/27/2016 12:10 PM EST 09/27/2016 12:20 PM EST Narrative Resulting Agency Comment Spec In Lab Brittani Martinez DO CHEMISTRY ORDERA BLES Performing Organization Address [facility] Co de Phone Number [facility] [place] [address] * Rheumatoid factor, quant (09/27/2016 12:10 PM EST) Rheumatoid Factor <10 <=14 IU/mL [facility] Blood specimen (specimen) 09/27/2016 12:10 PM EST 09/27/2016 12:20 PM EST Narrative Resulting Agency Comment Spec In Lab Brittani Martinez DO CHEMISTRY ORDERA BLES Performing Organization Address [facility] Co de Phone Number [facility] [place] [address] * (ABNORMAL) Comprehensive metabolic panel (non-fasting) (09/27/2016 12:10 PM EST) Glucose 113 65 - 199 mg/dL [facility] Comment:Diabetes: >=200 mg/d L plus symptoms Blood Urea Nitrogen 19(H) 8 - 18 mg/dL [facility] Creatinine 0.73 0.70 - 1.20 mg/dL [facility] Comment: Please note that the pediatric reference intervals supplied above were not validated at [facility]. Results from pediatric patients should be interpreted in conjunction to the patient's age, height and muscle mass. Sodium 143 135 - 145 mmol/L [facility] Potassium 4.1 3.5 - 5.0 mmol/L [facility] Comment: Please note: ??Patients with WBC >100,000 may have falsely elevated Potassium levels. ??For accurate Potassium quantification in these patients send serum separator tube (gold top) for subsequent determinations. ??Contact the Clinical Chemistry Laboratory if there are any questions. Chloride 102 98 - 107 mmol/L [facility] Carbon Dioxide 29 22 - 31 mmol/L [facility] Anion Gap 12 5 - 15 mmol/L [facility] Calcium 10.0 8.5 - 10.5 mg/dL [facility] Protein, Total 7.8 6.1 - 8.0 gm/dL [facility] Albumin 4.3 3.2 - 5.2 gm/dL [facility] Aspartate Aminotransferase 46(H) 0 - 30 unit/L [facility] Alanine Aminotransferase 55(H) 0 - 30 unit/L [facility] Alkaline Phosphatase 73 40 - 104 unit/L [facility] Bilirubin, Total 0.5 0.2 - 1.3 mg/dL [facility] Bilirubin, Direct 0.1 0.0 - 0.3 mg/dL [facility] Est Glomerular Filtration Rate >60 >=60 [facility] Comment: This estimated GFR [...] the following links into your internet browser. [email or web address] Blood specimen (specimen) 09/27/2016 12:10 PM EST 09/27/2016 12:20 PM EST Narrative Resulting Agency Comment Spec In Lab Brittani Martinez DO CHEMISTRY ORDERA BLES [facility] [place] [address] * CRP, cardiac risk (HS CRP) (09/27/2016 12:10 PM EST) C-Reactive Protein High Sensitivity 3.3 mg/L [facility] Comment: For cardiac risk [...] 2003; 107:363-369 CRP Cardiac Risk High Risk [facility] Blood specimen (specimen) 09/27/2016 12:10 PM EST 09/27/2016 12:20 PM EST Narrative Resulting Agency Comment Spec In Lab Brittani Martinez DO CHEMISTRY ORDERA BLES [facility] [place] [address] documented in this encounter Visit Diagnoses Diagnosis Ankylosing spondylitis documented in this encounter Care Teams Vacuum Plastic Forming Machine Operator Relationship Specialty Start Date End Date Marcio Carranza MD [address] [place] [address] PCP - General 08/07/10 11/10/17 documented as of this encounter
--- OUTSIDE RECORDS SUMMARY | 2024-10-04 16:10 | XMS_ITS | Encounter Summary ---
Author Organization [facility] [place] [address] Care Team Providers Care Java Flex Developer Name Role Phone Marcio Carranza MD Primary Care Provider [phone] Reason for Visit * Reason Onset Date Comments Medication Refill 05/30/2016 Encounter Details Date Type Department Care Team (Late st Contact Info) Description 05/31/2016 Refill [place] [phone] Sindi Guzmán RN Ankylosing spondylitis of cervical [...] NAVARRO MD] Preferred pharmacy: [facility] [address] Comment: documented in this encounter Plan of Treatment Upcoming Encounters Date Type Department Care Team (Late st Contact Info) Description 10/16/2024 10:00 AM EST Hospital Encounter Non-Invasive [place] [phone] Arrived 11/12/2024 8:00 AM EST Appointment Mammography/[place] [address] Gabe Fong MD [facility] [place] [address] 11/30/2024 2:30 PM EDT Office Visit Rheumatology at [place] [phone] Gabe Fong MD [facility] [place] [address] 12/07/2024 2:30 PM EDT TH Visit (TeleHealth) [place] [address] Rosemarie oMrrow, PHARMACY SERVICE ASSOCIATE [facility] [place] [address] documented as of this encounter Visit Diagnoses Diagnosis Ankylosing spondylitis of cervical region Ankylosing spondylitis documented in this encounter Care Teams Java Flex Developer Relationship Specialty Start Date End Date Marcio Carranza MD [address] [place] [address] PCP - General 08/07/10 11/10/17 documented as of this encounter
--- OUTSIDE RECORDS SUMMARY | 2024-10-04 16:10 | XMS_ITS | Encounter Summary ---
Author Organization [facility] [place] [address] Care Team Providers Care Brick Tosser Name Role Phone Marcio Carranza MD Primary Care Provider [phone] Encounter Details Date Type Department Care Team (Late st Contact Info) Description 03/01/2015 10:15 AM EDT Follow-[place] [phone] Shola Whitlock DO Ankylosing spondylitis Discharge Disposition: Home Social History [...] provided the care. * Shola Whitlock, - 03/01/2015 11:04 AM EDT Rheumatology Fellow Outpatient Progress Note Rheumatologic Problem List 1. UC associated Ankylosing Spondylitis - Currently on Humira [id number] and SSZ - Symptoms of cervical and lumbar spine involvement - Erythema nodosum associated with UC (difficult to treat but responded well to Humira) 3. OA - s/p left hip replacement back in 2005 PM -GERD -MÉNDEZ HPI: Kim Funes is a [...] and SSZ which she is tolerating nicely. Shedoes complain of some residual joint pain and [...] AM EST Hospital Encounter Non-[place] [phone] Arrived 11/12/2024 8:00 AM EST Appointment Mammography/[place] [address] Gabe Fong MD [facility] [address] [place] [address] 11/30/2024 2:30 PM EDT Office [place] [address] Gabe Fong MD [facility] [address] [place] [address] 12/07/2024 2:30 PM EDT TH Visit (TeleHealth) Gastroenterology at [place] [phone] Rosemarie Morrow APRN [facility] [place] [address] documented as of this encounter Procedures Procedure [...] MD HEMATOLOGY ORDERABLE S Performing Organization Address [facility]/ZIP Co de Phone Number CERTRU ELLIOTTENNIUM * (ABNORMAL) Hemogram (03/01/2015 11:48 AM EDT) [...] Lab Chepe Jackson MD HEMATOLOGY ORDERABLE S TYSHAWN YOUNGIUM * (ABNORMAL) Comprehensive metabolic panel (non-fasting) (03/01/2015 11:48 AM EDT) [facility] Glucose 137 65 - 199 mg/dL CERNER MILLENNIUM Comment:Diabetes: >=200 mg/d L plus symptoms Blood Urea Nitrogen 18 8 - 18 mg/dL [facility]ER MILLENNIUM Creatinine 0.85 0.70 - 1.20 mg/dL C[facility]ER MILLENNIUM Comment: Please note that the pediatric reference intervals supplied above were not validated at [facility]. Results from pediatric patients should be interpreted [...] the following links into your internet browser. [email or web address] Blood specimen (specimen) 03/01/2015 11:48 AM EDT 03/01/2015 12:20 PM EDT Narrative Resulting Agency Comment Spec In Lab Chepe Jackson MD CHEMISTRY ORDERABLES Performing Organization Address [facility] de Phone Number TYSHAWN RICKETTS * High Sensitivity CRP (03/01/2015 11:48 AM EDT) C-Reactive Protein High Sensitivity 2.0 mg/L [facility] Comment: Interpretations: 1) For accurate cardiac risk [...] Jackson MD CHEMISTRY ORDERABLES Performing Organization Address [facility] de Phone Number TYSHAWN RICKETTS * Sedimentation rate (03/01/2015 11:48 AM EDT) Sedimentation Rate Automated 6 0 - 20 mm/hr [facility] Blood specimen (specimen) 03/01/2015 11:48 AM EDT 03/01/2015 12:20 PM EDT Narrative Resulting Agency Comment Spec In Lab Chepe Jackson MD HEMATOLOGY ORDERABLE S Performing Organization Address City/State/[facility] Co de Phone Number TYSHAWN [facility] documented in this encounter Visit Diagnoses Diagnosis Ankylosing spondylitis documented in this encounter Care Teams Brick Tosser Relationship Specialty Start Date End Date Marcio Carranza MD [address] [place] [address] PCP - General 08/07/10 11/10/17 documented as of this encounter
--- OUTSIDE RECORDS SUMMARY | 2024-10-04 16:10 | XMS_ITS | Encounter Summary ---
Author Organization [facility] Address [facility] [place] [address] Care Team Providers Care Pole Tester Name Role Phone Marcio Carranza MD Primary Care Provider [phone] [phone] Encounter Details Date Type Department Care Team (Latest Contact Info) Description 08/24/2015 4:51 PM EST - 08/24/2015 11:59 PM [facility] Hospital Encounter XRay at [address] [place] [address] Brittani Martinez, [facility] [place] [address] Ankylosing spondylitis Discharge Disposition: Home Social History [...] AM EST Hospital Encounter Non-Invasive [place] [address] Arrived 11/12/2024 8:00 AM EST Appointment Mammography/DXA at [place] [phone] Gabe Fong MD [facility] [place] [address] 11/30/2024 2:30 PM EDT Office [place] [address] Gabe Fong MD [facility] [place] [address] 12/07/2024 2:30 PM EDT TH Visit (TeleHealth) Gastroenterology at [place] [phone] Rosemarie Morrow APRN [facility] [place] [address] documented as of this encounter Procedures Procedure [...] spondylitis documented in this encounter Care Teams Pole Tester Relationship Specialty Start Date End Date Marcio Carranza MD [address] [place] [address] PCP - General 08/07/10 11/10/17 documented as of this encounter
--- OUTSIDE RECORDS SUMMARY | 2024-10-04 16:10 | XMS_ITS | Encounter Summary ---
Author Organization [facility] Address [facility] [place] [address] Care Team Providers Care Extra Hand Name Role Phone Marcio Carranza MD Primary Care Provider [phone] Encounter Details Date Type Department Care Team (Late st Contact Info) Description 03/04/2016 2:15 PM EDT - 03/04/2016 11:59 PM EDT Hospital Encounter XRay at [address] [place] [address] Lola Haley, [facility] [address] Enteropathic arthritis Discharge Disposition: Home Social History [...] AM EST Hospital Encounter Non-[place] [address] Arrived 11/12/2024 8:00 AM EST Appointment Mammography/DXA at [place] [phone] Gabe Fong MD [facility] [place] [address] 11/30/2024 2:30 PM EDT Office [place] [address] Gabe Fong MD [facility] [address] 12/07/2024 2:30 PM EDT TH Visit (TeleHealth) Gastroenterology at [place] [phone] Rosemarie Morrow APRN [facility] [place] [address] documented as of this encounter Procedures Procedure [...] BMD measurements and plots are available in [employer] under the imaging tab. Paper copies will be sent to providers without [employer] access. If you have received this report without the data sheet and do not have access to [employer], please contact Radiology Parts Washer at [phone] Friday thru Friday 8am-4pm. Narrative 03/05/2016 2:40 [...] copies will be sent to providers without [place] access.If you have received this report without the data sheet and do not haveaccess to [employer], please contact Radiology Parts Washer at [phone] Friday thruFriday 8am-4pm. Lola Haley DO IMG DEXA ORDERABLE S documented in this encounter Visit Diagnoses Diagnosis Enteropathic arthritis Arthropathy associated with gastrointestinal conditions other than infections documented in this encounter Care Teams Extra Hand Relationship Specialty Start Date End Date Marcio Carranza MD [address] [place] [address] PCP - General 08/07/10 11/10/17 documented as of this encounter
--- OUTSIDE RECORDS SUMMARY | 2024-10-04 16:10 | XMS_ITS | Encounter Summary ---
Author Organization [facility] [place] [address] Care Team Providers Care Environmental Auditor Name Role Phone Marcio Carranza MD Primary Care Provider [phone] Reason for Visit * Reason Comments Follow-up Encounter Details Date Type Department Care Team (Late st Contact Info) Description 09/26/2014 3:30 PM EST Follow-Up Dermatology at [facility] [address] [place] [address] July Pack MD Resolved condition, follow-up; Erythema nodosum; Psoriasis Discharge [...] I left a voicemail message for Kim Graff Shantel asking for a return phone call. This call is in regards to scheduling a follow up. * Ruy Neff III, MD - 09/26/2014 9:28 PM EST I was the supervising physician working with dermatology resident Dr. Pack in the dermatology clinic during this patient visit. The level of Resident supervision for this patient visit was indirect supervision with direct supervision immediately available. (definition: [facility] GME Policy Statement on Graduate Medical Education, Supervision of Graduate Medical Trainees) I was immediately available to Dr. Pakc for questions and discussion regarding this visit. [...] call for questions or concerns. Jeny Jones TRUCK BODY REPAIRER. has performed the documentation for this encounter in the presence of and acting as a scribe for July Pack MD, Dermatology Resident I performed the above scribed service and agree with the accuracy of the documentation in this encounter. July aPck MD Resident in Dermatology [facility] staff placement manager: Ruy Neff MD Section of Dermatology [facility] documented in this encounter Plan of Treatment Upcoming Encounters Date Type Department Care Team (Late st Contact Info) Description 10/16/2024 10:00 AM EST Hospital Encounter Non-Invasive Cardiology Lab [place] [address] Arrived 11/12/2024 8:00 AM EST Appointment Mammography/DXA at [place] [address] Gabe Fong MD [facility] [place] [address] 11/30/2024 2:30 PM EDT Office [place] [address] Gabe Fong MD [facility] [place] [address] 12/07/2024 2:30 PM EDT TH Visit (TeleHealth) Gastroenterology at [address] Rosemarie Morrow APRN [facility] [place] [address] documented as of this encounter Visit Diagnoses Diagnosis Resolved condition, follow-up Other follow-up examination Erythema nodosum Psoriasis Other psoriasis documented in this encounter Care Teams Environmental Auditor Relationship Specialty Start Date End Date Marcio Carranza MD [address] [place] [address] PCP - General 08/07/10 11/10/17 documented as of this encounter
--- OUTSIDE RECORDS SUMMARY | 2024-10-04 16:11 | XMS_ITS | Encounter Summary ---
Author Organization [facility] [place] [address] Care Team Providers Care Hall Tender Name Role Phone Marcio Carranza MD Primary Care Provider [phone] [phone] Reason for Visit * Reason Comments Medication Refill Encounter Details Date Type Department Care Team (Late st Contact Info) Description 05/03/2014 [place] [address] Eden Reynoso MD [address] [place] [address] [place] [address] Social History Tobacco Use Types Packs/Day Years [...] AM EST Hospital Encounter Non-Invasive [place] [address] Arrived 11/12/2024 8:00 AM EST Appointment Mammography/DXA at [place] [address] Gabe Fong MD [facility] [address] 11/30/2024 2:30 PM EDT Office Visit Rheumatology at [place] [address] Gabe Fong MD [facility] [place] [address] 12/07/2024 2:30 PM EDT TH Visit (TeleHealth) Gastroenterology at [place] [address] Rosemarie Morrow, [facility] [place] [address] documented as of this encounter Visit Diagnoses Not on filedocumented in this encounter Care Teams Hall Tender Relationship Specialty Start Date End Date Marcio Carranza MD [address] [place] [address] PCP - General 08/07/10 11/10/17 documented as of this encounter
--- OUTSIDE RECORDS SUMMARY | 2024-10-04 16:11 | XMS_ITS | Encounter Summary ---
Author Organization [facility] [place] [address] Care Team Providers Care Field Reimbursement Manager Name Role Phone Marcio Carranza MD Primary Care Provider +1 -[phone] Encounter Details Date Type Department Care Team (Late st Contact Info) Description 07/25/2014 Telephone Dermatology at [facility] [address] [place] [address] Marcio Townsend MD Social History Tobacco Use Types Packs/Day Years [...] 05/17/14 Kristian) - please call her at [phone]. Leena Baker documented in this encounter Plan of Treatment Upcoming Encounters Date Type Department Care Team (Late st Contact Info) Description 10/16/2024 10:00 AM EST Hospital Encounter Non-Invasive Cardiology Lab [place] [phone] Arrived 11/12/2024 8:00 AM EST Appointment Mammography/DXA at [place] [phone] Gabe Fong MD [facility] [place] [address] 11/30/2024 2:30 PM EDT Office [place] [address] Gabe Fong MD [facility] [place] [address] 12/07/2024 2:30 PM EDT TH Visit (TeleHealth) Gastroenterology at [place] [phone] Rosemarie Morrow, SKIP [facility] GASTROENTEROLOGY [place], [place] [phone] documented as of this encounter Visit Diagnoses Not on filedocumented in this encounter Care Teams Field Reimbursement Manager Relationship Specialty Start Date End Date Marcio Carranza MD [address] [place] [address] PCP - General 08/07/10 11/10/17 documented as of this encounter
--- OUTSIDE RECORDS SUMMARY | 2024-10-04 16:11 | XMS_ITS | Encounter Summary ---
Author Organization Formerly [facility] [place] [address] Care Team Providers Care Manager Research And Development Name Role Phone Marcio Carranza MD Primary Care Provider +1 -[phone] Reason for Visit * Reason Onset Date Comments Medication Refill 01/22/2011 Encounter Details Date Type Department Care Team (Late st Contact Info) Description 01/22/2011 [place] [phone] Eden Reynoso MD [address] [place] [address] [place] [address] Spondylitis Social History Tobacco Use Types Packs/Day [...] AM EST Hospital Encounter Non-Invasive [place] [address] Arrived 11/12/2024 8:00 AM EST Appointment Mammography/DXA at [place] [address] Gabe Fong MD [facility] [place] [address] 11/30/2024 2:30 PM EDT Office Visit Rheumatology at [address] Gabe Fong MD [facility] [place] [address] 12/07/2024 2:30 PM EDT TH Visit (TeleHealth) [place] [address] Rosemarie Morrow APRN [facility] [place] [address] documented as of this encounter Visit Diagnoses Diagnosis Spondylitis Unspecified inflammatory spondylopathy documented in this encounter Care Teams Manager Research And Development Relationship Specialty Start Date End Date Marcio Carranza MD [address] [place] [address] PCP - General 08/07/10 11/10/17 documented as of this encounter
--- OUTSIDE RECORDS SUMMARY | 2024-10-04 16:11 | XMS_ITS | Encounter Summary ---
Author Organization [facility] [place] [address] Care Team Providers Care Punch Operator Name Role Phone Marcio Carranza MD Primary Care Provider +1 -[phone] Reason for Visit * Reason Comments Medication Refill Encounter Details Date Type Department Care Team (Late st Contact Info) Description 04/22/2013 Refill [place] [address] Eden Reynoso MD [address] [place] [address] [place] [address] Social History Tobacco Use Types Packs/Day Years [...] AM EST Hospital Encounter Non-[place] [address] Arrived 11/12/2024 8:00 AM EST Appointment Mammography/DXA at [place] [phone] Gabe Fong MD [facility] [place] [address] 11/30/2024 2:30 PM EDT Office Visit Rheumatology at [place] [phone] Gabe Fong MD [facility] [address] 12/07/2024 2:30 PM EDT TH Visit (TeleHealth) Gastroenterology at [place] [phone] Rosemarie Morrow APRN [facility] [place] [address] documented as of this encounter Visit Diagnoses Not on filedocumented in this encounter Care Teams Punch Operator Relationship Specialty Start Date End Date Marcio Carranza MD [address] [place] [address] PCP - General 08/07/10 11/10/17 documented as of this encounter
--- OUTSIDE RECORDS SUMMARY | 2024-10-04 16:11 | XMS_ITS | Encounter Summary ---
Author Organization [facility] [place] [address] Care Team Providers Care Html Developer Name Role Phone Marcio Carranza MD Primary Care Provider +1 -[phone] Encounter Details Date Type Department Care Team (Late st Contact Info) Description 08/14/2010 2:00 PM EST Follow-[place] [address] Marc Chan MD Social History Tobacco Use Types Packs/Day [...] AM EST Hospital Encounter Non-Invasive [place] [address] Arrived 11/12/2024 8:00 AM EST Appointment Mammography/[place] [address] Gabe Fong MD [facility] [address] [place] [address] 11/30/2024 2:30 PM EDT Office [place] [address] Gabe Fong MD [facility] [place] [place] [address] 12/07/2024 2:30 PM EDT TH Visit (TeleHealth) [place] [address] Rosemarie Morrow APRN [facility] [place] [address] documented as of this encounter Visit Diagnoses Not on filedocumented in this encounter Care Teams Html Developer Relationship Specialty Start Date End Date Marcio Carranza MD [address] [place] [address] PCP - General 08/07/10 11/10/17 documented as of this encounter
--- OUTSIDE RECORDS SUMMARY | 2024-10-04 16:11 | XMS_ITS | Encounter Summary ---
[place] [address] Care Team Providers Care Distribution Transformer Assembler Name Role Phone Marcio Carranza MD Primary Care Provider +1 -[phone] Reason for Visit * Reason Onset Date Comments Medication Refill 09/19/2011 Encounter Details Date Type Department Care Team (Late st Contact Info) Description 09/19/2011 Refill [place] [address] Marc Chan MD Social History [...] AM EST Hospital Encounter Non-Invasive [place] [address] Arrived 11/12/2024 8:00 AM EST Appointment Mammography/[place] [address] Gabe Fong MD [facility] [place] [address] 11/30/2024 2:30 PM EDT Office Visit Rheumatology at [place] [phone] Gabe Fong MD [facility] [place] [address] 12/07/2024 2:30 PM EDT TH Visit (TeleHealth) [place] [address] Rosemarie Morrow, SKIP [facility] [place] [address] documented as of this encounter Visit Diagnoses Not on filedocumented in this encounter Care Teams Distribution Transformer Assembler Relationship Specialty Start Date End Date Marcio Carranza MD [address] [place] [address] PCP - General 08/07/10 11/10/17 documented as of this encounter
--- OUTSIDE RECORDS SUMMARY | 2024-10-04 16:11 | XMS_ITS | Encounter Summary ---
Author Organization [facility] [address] Care Team Providers Care Braider Operator Name Role Phone Marcio Carranza MD Primary Care Provider +1 -[phone] Reason for Visit * Reason Comments Ulcerative Colitis Encounter Details Date Type Department Care Team (Late st Contact Info) Description 03/11/2011 10:00 AM EDT Follow-[place] [phone] Dajuan Rachel MD [facility] DR [place] [address] Ulcerative colitis (Primary Dx) Discharge Disposition: Home [...] Colonoscopy 09/19/08 (Dr. Shady Luz at [facility]). Areas of skip inflammation in transverse, descending, & rectosigmoid. Upon retroflexion, a rectal mucosal tear requiring subsequent admission for antibiotics. Biopsies: normal ileum, non- specific eosinophilic infiltration of the cecum, chronic inactive colitis in the descending, rectum, sigmoid, and rectum. The transverse colon revealed moderate to severe chronic, active colitis. Last colonoscopy 01/03/2011 (Dr. Marc Chan) - yrbh-tk-[place] inflammation rectum to cecum with aninflammatory sigmoid polyp Ankylosing spondylitis diagnosed ~1991; also history of iritis ??? DIFFICULT AIRWAY ??? MÉNDEZ (nonalcoholic steatohepatitis) ??? Lipid disorder ??? Ankylosing spondylitis ??? Hypertension ??? GERD (gastroesophageal reflux disease) Subjective: LEE ANN Funes is a 50 y.o. woman with a long history of ulcerative colitis who [facility] the [facility]. [...] her last colonoscopy in December. There was zxso-bf-bymfykcl chronic pancolitis. Biopsiesshowed no dysplasia, and there [...] office one month thereafter. Freddy Rachel MD Medical Director Occupational Healthlinotype machinist apprentice Section of Gastroenterology [place] [address] CC: MARCIO CARRANZA MD [address] [place] [address] MARC CHAN MD [facility] HEPAT[facility] documented in this encounter Plan of Treatment Upcoming Encounters Date Type Department Care Team (Late st Contact Info) Description 10/16/2024 10:00 AM EST Hospital Encounter Non-Invasive [place] [address] Arrived 11/12/2024 8:00 AM EST Appointment Mammography/[place] [address] Gabe Fong MD [facility] [place] [address] 11/30/2024 2:30 PM EDT Office [place] [address] Gabe Fong MD [facility] [place] [address] 12/07/2024 2:30 PM EDT TH Visit (TeleHealth) [place] [address] Rosemarie Morrow APRN [facility] [place] [address] documented as of this encounter Visit Diagnoses Diagnosis Ulcerative colitis- Primary Ulcerative colitis, unspecified documented in this encounter Care Teams Braider Operator Relationship Specialty Start Date End Date Marcio Carranza MD [address] [place] [address] PCP - General 08/07/10 11/10/17 documented as of this encounter
--- OUTSIDE RECORDS SUMMARY | 2024-10-04 16:11 | XMS_ITS | Encounter Summary ---
Author Organization [facility]ly [facility] [place] [address] Care Team Providers Care Vehicle Sales Professional Name Role Phone Marcio Carranza MD Primary Care Provider +1 -[phone] Reason for Visit * Reason Comments Medication Refill Encounter Details Date Type Department Care Team (Late st Contact Info) Description 10/28/2013 [place] [address] Eden Reynoso MD [address] [place] [address] [place] [address] Social History Tobacco Use Types Packs/Day Years [...] AM EST Hospital Encounter Non-[place] [address] Arrived 11/12/2024 8:00 AM EST Appointment Mammography/DXA at [place] [phone] Gabe Fong MD [facility] [place] [address] 11/30/2024 2:30 PM EDT Office Visit Rheumatology at [place] [phone] Gabe Fong MD [facility] [place] [address] 12/07/2024 2:30 PM EDT TH Visit (TeleHealth) Gastroenterology at [place] [phone] Rosemarie Morrow APRN [facility] [place] [address] documented as of this encounter Visit Diagnoses Not on filedocumented in this encounter Care Teams Vehicle Sales Professional Relationship Specialty Start Date End Date Marcio Carranza MD [address] [place] [address] PCP - General 08/07/10 11/10/17 documented as of this encounter
--- OUTSIDE RECORDS SUMMARY | 2024-10-04 16:11 | XMS_ITS | Encounter Summary ---
Author Organization [facility]ly [facility] [place] [address] Care Team Providers Care Network Designer Name Role Phone Marcio Carranza MD Primary Care Provider +1 -[phone] Encounter Details Date Type Department Care Team (Late st Contact Info) Description 08/15/2010 1:00 PM EST [place] [address] [address] [place] Discharge Disposition: Home [...] AM EST Hospital Encounter Non-Invasive [place] [address] Arrived 11/12/2024 8:00 AM EST Appointment Mammography/[place] [address] Gabe Fong MD [facility] [place] [place] [address] 11/30/2024 2:30 PM EDT [place] [address] Gabe Fong MD [facility] [place] [address] 12/07/2024 2:30 PM EDT TH Visit (TeleHealth) [place] [address] Rosemarie Morrow APRN [facility] [place] [address] documented as of this encounter Visit Diagnoses Not on filedocumented in this encounter Care Teams Network Designer Relationship Specialty Start Date End Date Marcio Carranza MD [address] [place] [address] PCP - General 08/07/10 11/10/17 documented as of this encounter
--- OUTSIDE RECORDS SUMMARY | 2024-10-04 16:11 | XMS_ITS | Encounter Summary ---
[place] [address] Care Team Providers Care Administrative Associate Name Role Phone Marcio Carranza MD Primary Care Provider +1 -[phone] Encounter Details Date Type Department Care Team (Late st Contact Info) Description 08/14/2010 [place] [address] Eden Reynoso MD [address] [place] [address] Social History Tobacco Use Types Packs/Day Years [...] Hospital Encounter Non-[place] [address] Arrived 11/12/2024 8:00 AM EST Appointment Mammography/[place] [address] Gabe Fong MD [facility] [place] [address] 11/30/2024 2:30 PM EDT [place] [address] Gabe Fong MD [facility] [place] [address] 12/07/2024 2:30 PM EDT TH Visit (TeleHealth) [place] [address] Rosemarie Morrow APRN [facility] [place] [address] documented as of this [...] HIGH SENSITIVITY CRP (08/14/2010 3:52 PM EST) [facility] Signature C-Reactive Protein High Sensitivity 49.9 mg/L [facility] Comment: result rechecked, blr Interpretations: 1) For [...] Reynoso MD CHEMISTRY ORDERABLES Performing Organization Address [facility] de Phone Number [facility] OfficialVirtualDJ * (ABNORMAL) FERRITIN (08/14/2010 3:52 PM EST) Ferritin 199(H) 15 - 150 ng/mL [facility] IntegriChainIUM Comment: Pediatric reference ranges not verified at [facility], interpret with caution. Reference ranges for females greater than 50 years of age approach values for men, i.e., 30-400 ng/mL. Blood specimen (specimen) 08/14/2010 3:52 PM EST 08/14/2010 4:05 PM EST Eden Reynoso MD CHEMISTRY ORDERABLES Performing Organization Address [facility] de Phone Number [facility] OfficialVirtualDJ * (ABNORMAL) IRON AND TIBC (08/14/2010 3:52 PM EST) [facility] Signature Iron 40 30 - 150 mcg/dL [facility] TIBC 284 250 - 450 mcg/dL [facility] MILLENNIUM Iron Saturation 14(L) 20 - 50 % [facility] MILLENNIUM Blood specimen (specimen) 08/14/2010 3:52 PM EST 08/14/2010 4:05 PM EST Eden Reynoso MD CHEMISTRY ORDERABLES Performing Organization Address [facility] Co de Phone Number [facility]ER MILLENNIUM * [...] Reynoso MD CHEMISTRY ORDERABLES Performing Organization Address [facility] de Phone Number CERNER MILLENNIUM * CK (08/14/2010 3:52 PM EST) Creatine Kinase 135 0 - 160 unit/L [facility] MILLENNIUM Blood specimen (specimen) 08/14/2010 3:52 PM EST 08/14/2010 4:05 PM EST Eden Reynoso MD CHEMISTRY ORDERABLES Performing Organization Address [facility] Co de Phone Number CERNER MILLENNIUM documented in this encounter Visit Diagnoses Not on filedocumented in this encounter Care Teams Administrative Associate Relationship Specialty Start Date End Date Marcio Carranza MD [address] [place] [address] PCP - General 08/07/10 11/10/17 documented as of this encounter
--- OUTSIDE RECORDS SUMMARY | 2024-10-04 16:11 | XMS_ITS | Encounter Summary ---
[place] [address] Care Team Providers Care Concrete Bucket Unloader Name Role Phone Marcio Carranza MD Primary Care Provider +1 -[phone] Encounter Details Date Type Department Care Team (Late st Contact Info) Description 08/23/2011 Orders [place] [address] Laura Miles RN Social History Tobacco Use Types Packs/Day [...] AM EST Hospital Encounter Non-[place] [address] Arrived 11/12/2024 8:00 AM EST Appointment Mammography/[place] [address] Gabe Fong MD [facility] [place] [address] 11/30/2024 2:30 PM EDT Office [place] [address] Gabe Fong MD [facility] [place] [address] 12/07/2024 2:30 PM EDT TH Visit (TeleHealth) [place] [address] Rosemarie Morrow APRN [facility] [place] [address] documented as of this encounter Visit Diagnoses Not on filedocumented in this encounter Care Teams Concrete Bucket Unloader Relationship Specialty Start Date End Date Marcio Carranza MD [address] [place] [address] PCP - General 08/07/10 11/10/17 documented as of this encounter
--- OUTSIDE RECORDS SUMMARY | 2024-10-04 16:11 | XMS_ITS | Encounter Summary ---
[place] [address] Care Team Providers Care Art Objects Supervisor Name Role Phone Marcio Carranza MD Primary Care Provider +1 -[phone] Encounter Details Date Type Department Care Team (Late st Contact Info) Description 03/08/2011 [place] [address] Asmita Green RN Social History [...] AM EST Hospital Encounter Non-[place] [address] Arrived 11/12/2024 8:00 AM EST Appointment Mammography/[place] [address] Gabe Fong MD [facility] [place] [address] 11/30/2024 2:30 PM EDT [place] [address] Gabe Fong MD [facility] [place] [address] 12/07/2024 2:30 PM EDT TH Visit (TeleHealth) [place] [address] Rosemarie Morrow APRN [facility] [place] [address] documented as of this encounter Visit Diagnoses Not on filedocumented in this encounter Care Teams Art Objects Supervisor Relationship Specialty Start Date End Date Mracio Carranza MD [address] [place] [address] PCP - General 08/07/10 11/10/17 documented as of this encounter
--- OUTSIDE RECORDS SUMMARY | 2024-10-04 16:11 | XMS_ITS | Encounter Summary ---
Author Organization [place] [address] Care Team Providers Care Chemist Steroids Name Role Phone Marcio Carranza MD Primary Care Provider +1 -[phone] Reason for Visit * Reason Onset Date Comments Medication Refill 10/12/2012 Encounter Details Date Type Department Care Team (Late st Contact Info) Description 10/12/2012 [place] [address] Eden Reynoso MD [address] [place] [address] [place] [address] Social History Tobacco Use Types Packs/Day Years [...] AM EST Hospital Encounter Non-[place] [address] Arrived 11/12/2024 8:00 AM EST Appointment Mammography/DXA at [address]1000 Gabe Fong MD [facility] [place] [address] 11/30/2024 2:30 PM EDT Office [place] [address] Gabe Fong MD [facility] [place] [address] 12/07/2024 2:30 PM EDT TH Visit (TeleHealth) Gastroenterology at [place] [phone] Rosemarie Morrow APRN [facility] [place] [address] documented as of this encounter Visit Diagnoses Not on filedocumented in this encounter Care Teams Chemist Steroids Relationship Specialty Start Date End Date Marcio Carranza MD [address] [place] [address] PCP - General 08/07/10 11/10/17 documented as of this encounter
--- OUTSIDE RECORDS SUMMARY | 2024-10-04 16:11 | XMS_ITS | Encounter Summary ---
Author Organization Formerly [facility] [place] [address] Care Team Providers Care Director Of Testing Name Role Phone Marcio Carranza MD Primary Care Provider +1 -[phone] Encounter Details Date Type Department Care Team (Late st Contact Info) Description 04/20/[address] [facility] [address] [place] [address] July Pack MD Social History Tobacco Use Types Packs/Day [...] significant swelling. Patient aware to contact on-call boxing machine operator tonight if she worsens. MALI DUPREE [...] AM EST Hospital Encounter Non-[place] [address] Arrived 11/12/2024 8:00 AM EST Appointment Mammography/[place] [address] Gabe Fong MD [facility] [place] [address] 11/30/2024 2:30 PM EDT Office [place] [address] Gabe Fong MD [facility] [place] [address] 12/07/2024 2:30 PM EDT TH Visit (TeleHealth) Gastroenterology at [place] [phone] Rosemarie Morrow APRN [facility] [place] [address] documented as of this encounter Visit Diagnoses Not on filedocumented in this encounter Care Teams Director Of Testing Relationship Specialty Start Date End Date Marcio Carranza MD [address] [place] [address] PCP - General 08/07/10 11/10/17 documented as of this encounter
--- OUTSIDE RECORDS SUMMARY | 2024-10-04 16:11 | XMS_ITS | Encounter Summary ---
Author Organization [facility] Address [facility] [place] [address] Care Team Providers Care Car Mechanic Helper Name Role Phone Marcio Carranza MD Primary Care Provider +1 -[phone] Encounter Details Date Type Department Care Team (Latest Contact Info) Description 04/22/2012 2:58 PM EDT - 04/22/2012 11:59 PM EDT Hospital Encounter XRay at [facility] [address] [facility] [place] [id number] CLINIC, Marcio Hoyos MD [address] [place] [address] Discharge Disposition: Home Social History [...] EST Hospital Encounter [place] [address] Arrived 11/12/2024 8:00 AM EST Appointment Mammography/[place] [address] Gabe Fong MD [facility] [place] [address] [place] [address] 11/30/2024 2:30 PM EDT Office [place] [address] Gabe Fong MD [facility] [address] [place] [address] 12/07/2024 2:30 PM EDT TH Visit (TeleHealth) [place] [address] Rosemarie Morrow APRN [facility] [place] [address] documented as of this encounter Procedures Procedure [...] measurements and plots are available in e [employer] under the imaging tab. Procedure Note Dimple [...] in e DHunder the imaging tab. Ivelisse PugaDanni SHOW HOST IMG DEXA ORDERABLES documented in this encounter Visit Diagnoses Not on filedocumented in this encounter Care Teams Car Mechanic Helper Relationship Specialty Start Date End Date Marcio Carranza MD [address] [place] [address] PCP - General 08/07/10 11/10/17 documented as of this encounter
--- OUTSIDE RECORDS SUMMARY | 2024-10-04 16:11 | XMS_ITS | Encounter Summary ---
Author Organization [facility] [place] [address] Care Team Providers Care Keymodule Assembly Supervisor Name Role Phone Marcio Carranza MD Primary Care Provider +1 -[phone] Reason for Visit * Reason Onset Date Comments Medication Refill 09/15/2011 Encounter Details Date Type Department Care Team (Late st Contact Info) Description 09/15/2011 [place] [phone] Marc Chan MD Lipid disorder Social History Tobacco Use Types [...] Request Original authorizing provider: MD Kim DIAS would like a refill of the following medications: simvastatin (ZOCOR) 10 mg tablet [MARC CHAN MD] Preferred pharmacy: [id number] - [place], [place] - [address] [place] [address] Comment: I need Actigall 300 mg. renewed please. It is not listed above for renewal. Kim Perez[address] [facility], [place] [phone]: 1960 documented in this encounter Plan of Treatment Upcoming Encounters Date Type Department Care Team (Late st Contact Info) Description 10/16/2024 10:00 AM EST Hospital Encounter Non-Invasive Cardiology Lab [place] [phone] Arrived 11/12/2024 8:00 AM EST Appointment Mammography/[place] [address] Gabe Fong MD [facility] [place] [address] 11/30/2024 2:30 PM EDT Office [place] [address] Gabe Fong MD [facility] [place] [address] 12/07/2024 2:30 PM EDT TH Visit (TeleHealth) Gastroenterology at [place] [phone] Rosemarie Morrow APRN [facility] [place] [address] documented as of this encounter Visit Diagnoses Diagnosis Lipid disorder Unspecified disorder of lipoid metabolism documented in this encounter Care Teams Keymodule Assembly Supervisor Relationship Specialty Start Date End Date Marcio Carranza MD [address] [place] [address] PCP - General 08/07/10 11/10/17 documented as of this encounter
--- OUTSIDE RECORDS SUMMARY | 2024-10-04 16:11 | XMS_ITS | Encounter Summary ---
Author Organization [facility] [place] [address] Care Team Providers Care Sheep Farm Worker Name Role Phone Marcio Carranza MD Primary Care Provider +1 [phone] Encounter Details Date Type Department Care Team (Late st Contact Info) Description 05/18/2014 3:30 PM EDT Follow-[place] [phone] Shola Whitlock DO Ankylosing spondylitis (Primary Dx) Discharge Disposition: Home [...] other contraindication for anti-TNF therapy. * Shola Whitlock DO - 05/18/2014 3:38 PM EDT Rheumatology Fellow Outpatient Progress Note Rheumatologic Problem List 1. UC associated Ankylosing Spondylitis - Currently on Humira [id number] and SSZ - Symptoms of cervical and [...] AM EST Hospital Encounter Non-[place] [address] Arrived 11/12/2024 8:00 AM EST Appointment Mammography/[place] [address] Gabe Fong MD [facility] [place] [address] 11/30/2024 2:30 PM EDT Office [place] [address] Gabe Fong MD [facility] [place] [address] 12/07/2024 2:30 PM EDT TH Visit (TeleHealth) Gastroenterology at [facility] [place] [address] Rosemarie Morrow APRN [facility] [place] [address] documented as of this encounter [...] * (ABNORMAL) Hemogram (05/18/2014 4:41 PM EDT) White Blood Cell 8.5 4.0 - 10.0 [...] panel (non-fasting) (05/18/2014 4:41 PM EDT) Glucose 122 60 - 199 mg/dL CERNER MILLENNIUM Comment:Diabetes: >=200 mg/d L plus symptoms Blood Urea Nitrogen 16 8 - 18 mg/dL CERNER MILLENNIUM Creatinine 0.85 0.70 - 1.20 mg/dL CERNER MILLENNIUM Comment: Please note that the pediatric reference intervals supplied above were not validated at [facility]. Results from pediatric patients should be interpreted [...] the following links into your internet browser. [email or web address] Blood specimen (specimen) 05/18/2014 4:41 PM EDT 05/18/2014 4:49 PM EDT Narrative Resulting Agency Comment Spec In Lab Liang Novak MD CHEMISTRY ORDERABLES [facility] * High Sensitivity CRP (05/18/2014 4:41 PM [...] Novak MD CHEMISTRY ORDERABLES Performing Organization Address City/[facility] Co de Phone Number [facility] * Sedimentation rate (05/18/2014 4:41 PM EDT) Sedimentation Rate Automated 9 0 - 20 mm/hr [facility] Blood specimen (specimen) 05/18/2014 4:41 PM EDT 05/18/2014 4:49 PM EDT Narrative Resulting Agency Comment Spec In Lab Liang Novak MD HEMATOLOGY ORDERABLE S Performing Organization Address [facility] Co de Phone Number [facility] documented in this encounter Visit Diagnoses Diagnosis Ankylosing spondylitis- Primary documented in this encounter Care Teams Sheep Farm Worker Relationship Specialty Start Date End Date Marcio Carranza MD [address] [place] [address] PCP - General 08/07/10 11/10/17 documented as of this encounter
--- OUTSIDE RECORDS SUMMARY | 2024-10-04 16:11 | XMS_ITS | Encounter Summary ---
Author Organization [facility] [place] [address] Care Team Providers Care Executive Administrator Name Role Phone Marcio Carranza MD Primary Care Provider +1 -[phone] Reason for Visit * Reason Comments Medication Refill Encounter Details Date Type Department Care Team (Late st Contact Info) Description 04/22/2013 Refill [place] [phone] Eden Reynoso MD [address] [place] [address] [place] [address] Social History Tobacco Use Types Packs/Day Years [...] AM EST Hospital Encounter [place] [address] Arrived 11/12/2024 8:00 AM EST Appointment Mammography/DXA at [place] [phone] Gabe Fong MD [facility] [place] [address] 11/30/2024 2:30 PM EDT Office Visit Rheumatology at [place] [phone] Gabe Fong MD [facility] [place] [address] 12/07/2024 2:30 PM EDT TH Visit (TeleHealth) Gastroenterology at [place] [phone] Rosemarie Morrow APRN [facility] [place] [address] documented as of this encounter Visit Diagnoses Not on filedocumented in this encounter Care Teams Executive Administrator Relationship Specialty Start Date End Date Marcio Carranza MD [address] [place] [address] PCP - General 08/07/10 11/10/17 documented as of this encounter
--- OUTSIDE RECORDS SUMMARY | 2024-10-04 16:11 | XMS_ITS | Encounter Summary ---
Author Organization [facility] [place] [address] Care Team Providers Care Polisher And Buffer Name Role Phone Marcio Carranza MD Primary Care Provider +1 -[phone] Reason for Visit * Reason Comments Follow-up Encounter Details Date Type Department Care Team (Late st Contact Info) Description 08/19/2011 4:30 PM EST [place] [phone] Marc Chan MD MÉNDEZ (nonalcoholic steatohepatitis) (Primary Dx); Lipid disorder [...] - 08/19/2011 5:25 PM EST Welcome to [employer], your secure online access to your electronic medical record at [facility]. Using [employer] you will be able to send messages to your providers, view your test results, renew prescriptions, schedule appointments, and much more. Follow these instructions to enter your personal [employer] account for the first time: 1. Start your internet browser. Go to [email or web address] and click on the [employer] link. 2. Click SIGN UP NOW to go to the NEW MEMBER SIGN UP page. 3. Enter your [employer] Access Code exactly as it appears below. (You will not need this access code after you have completed the sign-up process.) ?? Your [employer] Access Code: [email or web address] ?? Expires: 10/03/11 05:25 PM ?? IMPORTANT: This Access Code will on the above mentioned date. If you do not sign up before this date, you will need to request a new Access Code number. 4. Enter your Date of (mm/dd/yyyy) and zip code click SUBMIT to go to the next page. 5. Create a [employer] identification (ID). This will be your [employer] login ID and cannot be changed, so [...] know when new information is available in [employer]. 9. Click SIGN UP to complete the process. You can now view your electronic medical record. If you have any questions about [employer] or your Access Code, please call for [place], for [place] or for [place]. If you need technical support, please e-mail [email or web address]. Remember, [employer] is NOT for urgent needs! Always dial 911 for medical emergencies. documented in this encounter Progress Notes * Marc Chan MD - 08/19/2011 5:23 PM EST Gastroenterology and Hepatology Clinic Provider: Marc Chan MD ([id number]) Referral Doctor: Marcio Carranza MD [facility] [address] [place] [address] Problem List: 1. MÉNDEZ (stage 2 in [...] conclusion of the visit. Marc Chan MD Divisional Storekeeperonline marketing strategist & Director of End Stage Liver Care Division of Gastroenterology and Hepatology tel: fax: [email or web address] documented in this encounter Plan of Treatment Upcoming Encounters Date Type Department Care Team (Late st Contact Info) Description 10/16/2024 10:00 AM EST Hospital Encounter [place] [address] Arrived 11/12/2024 8:00 AM EST Appointment Mammography[place] [address] Gabe Fong MD [facility] [address] [place] [place] [address] 11/30/2024 2:30 PM EDT Office [place] [address] Gabe Fong MD [facility] [address] [place] [address] 12/07/2024 2:30 PM EDT TH Visit (TeleHealth) [place] [address] Rosemarie Morrow APRN [facility] [place] [place] [address] documented as of this encounter Procedures Procedure Name Priority Date/Time Associated Diagnosis Comments TSH Routine 08/19/2011 5:44 PM EST HEMOGLOBIN A1C Routine 08/19/2011 5:44 PM EST LIPID PANEL (REFLEX DIRECT LDL) Routine 08/19/2011 5:44 PM EST COMPREHENSIVE METABOLIC PANEL Routine 08/19/2011 5:44 PM EST documented in this encounter Results * TSH (08/19/2011 5:44 PM EST) Pathologist [facility] Thyroid Stimulating Hormone 1.31 0.27 - 4.20 mcIU/mL [facility] Blood specimen (specimen) 08/19/2011 5:44 PM EST 08/19/2011 5:48 PM EST Marc Chan MD CHEMISTRY ORDERABLES [facility] * (ABNORMAL) LIPID PANEL (FASTING) (08/19/2011 5:44 PM EST) Cholesterol, Total 191 <=199 mg/dL CERNER MILLENNIUM Comment: Recommendations of the NCEP Adult Treatment Panel for the following risk cutoff thresholds for the [place] population: Desirable: <200 mg/dL Borderline High: 200-239 mg/dL High: > or = 240 mg/dL Triglyceride 250(H) <=149 mg/dL CERNER MILLENNIUM Comment: Reference Range: Normal triglycerides: ??<150 mg/dL Borderline high: ??150-199 mg/dL High: ??200-499 mg/dL Very high: ??>hd=173 mg/dL ABRAHAM 2001; 285(19):4548-0549 HDL Cholesterol 52 >=40 mg/dL CER NER MILLENNIUM Comment: Reference range: ??Low HDL: ?? < 40 mg/dL ??Normal: ?40-60 mg/dL ??Desirable: > 60 mg/dL ABRAHAM 2001; 285(19):5131-0205 LDL Cholesterol 89 <=99 mg/dL CER NER MILLENNIUM Comment: Reference range: ?? Optimal: ?<100 mg/dL ?? Near Optimal/Above Optimal: ?? 100-129 mg/dL ?? Borderline high: ?130-159 mg/dL ?? High: ? 160-189 mg/dL ?? Very high: ?>zs=918 mg/dL ABRAHAM 2001: 285(19):4138-7097 Cholesterol/HDL Ratio 3.7 ratio CERNER MILLENNIUM Comment: A Cholesterol to HDL ratio below 4:1 is desirable. ??Studies suggest that increased CAD risk occurs at ratios above 5 for females and above 6 for men. ? [place] Heart Association ??(http://www.americanheart.org) ? [place] Int Med, 1994; 121:641 ? AM J Med, 1998; 105(1A):48S Blood specimen (specimen) 08/19/2011 5:44 PM EST 08/19/2011 5:48 PM EST Marc Chan MD CHEMISTRY ORDERABLES Performing Organization Address [facility] de Phone Number [facility] * HEMOGLOBIN A1C (08/19/2011 5:44 PM EST) Hemoglobin A1c 5.6 4.3 - 6.1 % [facility] Estimated Average Glucose 114 mg/dL [facility] Comment: eAG equivalents for HbA1c percentages: [...] into estimated average glucose values. ??Diabetes Care 2008:31(8):4320-1394. Blood specimen (specimen) 08/19/2011 5:44 PM EST 08/19/2011 5:48 PM EST Marc Chan MD CHEMISTRY ORDERABLES Performing Organization Address [facility] de Phone Number [facility] * (ABNORMAL) COMPREHENSIVE METABOLIC PANEL (NON-FASTING) (08/19/2011 5:44 PM EST) [facility] Glucose 97 60 - 199 mg/dL CERNER [...] PM EST Marc Chan MD CHEMISTRY ORDERABLES [facility] documented in this encounter Visit Diagnoses Diagnosis MÉNDEZ (nonalcoholic steatohepatitis)- Primary Other chronic nonalcoholic liver disease Lipid disorder Unspecified disorder of lipoid metabolism documented in this encounter Care Teams Polisher And Buffer Relationship Specialty Start Date End Date Marcio Carranza MD [address] [place] [address] PCP - General 08/07/10 11/10/17 documented as of this encounter
--- OUTSIDE RECORDS SUMMARY | 2024-10-04 16:11 | XMS_ITS | Encounter Summary ---
Author Organization [facility] [place] [address] Care Team Providers Care Darkroom Technician Name Role Phone Marcio Carranza MD Primary Care Provider +1 -[phone] Reason for Visit * Reason Comments Skin Check Encounter Details Date Type Department Care Team (Late st Contact Info) Description 04/18/2014 2:30 PM EDT Office Visit Dermatology at [facility] [address] [place] [address] July Pack MD Psoriasis (Primary Dx); Candidal intertrigo Discharge Disposition: [...] exam as documented in Dr. Pack's note. URY NEFF III, MD Staff Physician * July [...] July Pack MD Resident in Dermatology [facility] Patient seen and evaluated with staff card fixer: Ruy Neff MD Section of Dermatology [facility] documented in this encounter Plan of Treatment Upcoming Encounters Date Type Department Care Team (Late st Contact Info) Description 10/16/2024 10:00 AM EST Hospital Encounter Non-Invasive Cardiology Lab [place] [address] Arrived 11/12/2024 8:00 AM EST Appointment Mammography/DXA at [place] [address] Gabe Fong MD [facility] [place] [address] 11/30/2024 2:30 PM EDT Office [place] [address] Gabe Fong MD [facility] [address] 12/07/2024 2:30 PM EDT TH Visit (TeleHealth) Gastroenterology at [address] Rosemarie Morrow APRN [facility] [place] [address] documented as of this encounter Visit Diagnoses Diagnosis Psoriasis- Primary Other psoriasis Candidal intertrigo Candidiasis of skin and nails documented in this encounter Care Teams Darkroom Technician Relationship Specialty Start Date End Date Marcio Carranza MD [address] [place] [address] PCP - General 08/07/10 11/10/17 documented as of this encounter
--- OUTSIDE RECORDS SUMMARY | 2024-10-04 16:11 | XMS_ITS | Encounter Summary ---
Author Organization [facility] [place] [address] Care Team Providers Care Plant Accountant Name Role Phone Marcio Carranza MD Primary Care Provider +1 -[phone] Encounter Details Date Type Department Care Team (Latest Contact Info) Description 06/03/2014 8:45 AM EDT Ancillary Appointment Dermatology at [address] [place] [place] [address] Marcio Townsend MD Erythema nodosum (Primary Dx) Social History Tobacco [...] EDT DERMATOLOGY [place] NOTE 06/03/2014 Kim Funes [id number] Marcio Townsend MD Chief Resident in Dermatology [...] topical triamcinolone and clobetasol prn Past Biopsies: [id number], to be discussed Pertinent Labs: CBC WNL [...] will be discussed with patient by referring New Business Clerk - Dr. Pack. Marcio Townsend MD Resident in Dermatology [facility] Staff kiln repairer: Casper Marlow MD, PhD Section of Dermatology [facility] documented in this encounter Plan of Treatment Upcoming Encounters Date Type Department Care Team (Late st Contact Info) Description 10/16/2024 10:00 AM EST Hospital Encounter Non-[place] [address] Arrived 11/12/2024 8:00 AM EST Appointment Mammography/DXA at [address] Gabe Fong MD [facility] [address] [place] [address] 11/30/2024 2:30 PM EDT Office Visit Rheumatology at [address] Gabe Fong MD [facility] [address] [place] [address] 12/07/2024 2:30 PM EDT TH Visit (TeleHealth) Gastroenterology at [place] [phone] Rosemarie Morrow, SKIP [facility] [place] [address] documented as of this encounter Visit Diagnoses Diagnosis Erythema nodosum- Primary documented in this encounter Care Teams Plant Accountant Relationship Specialty Start Date End Date Marcio Carranza MD [address] [facility] [place] [address] PCP - General 08/07/10 11/10/17 documented as of this encounter
--- OUTSIDE RECORDS SUMMARY | 2024-10-04 16:11 | XMS_ITS | Encounter Summary ---
Author Organization [facility] [place] [address] Care Team Providers Care Emery Grinder Name Role Phone Marcio Carranza MD Primary Care Provider +1 -[phone] Encounter Details Date Type Department Care Team (Latest Contact Info) Description 01/02/2011 7:47 AM EDT - 01/02/2011 11:15 AM EDT Hospital Encounter [place] [address] Yaquelin Chan MD Discharge Disposition: Home Social History Tobacco Use [...] AM EST Hospital Encounter Non-Invasive [place] [address] Arrived 11/12/2024 8:00 AM EST Appointment Mammography/[place] [address] Gabe Fong MD [facility] [place] [address] 11/30/2024 2:30 PM EDT Office Visit Rheumatology at [place] [phone] Gabe Fong MD [facility] [place] [address] 12/07/2024 2:30 PM EDT TH Visit (TeleHealth) Gastroenterology at [facility] [place] [address] Rosemarie Morrow APRN [facility] [place] [address] documented as of this encounter Procedures Procedure [...] 10:14 AM EDT) Surgical Pathology Report [id number] ? Location: 4T The signing pathologist has [...] 0.3 cm. Tissue Description: ?? Soft, polypoid, pink-bronw tissue. Sections/Process ing: ??Inked and trisected. ??(T1) [...] report in rendering the final pathologic diagnosis. [facility] 01/02/2011 10:1 4 AM EDT Yaquelin Chan MD PATHOLOGY/CYTOLOGY O RDERABLES [facility] * SURGICAL PATHOLOGY REPORT (01/02/2011 10:14 AM EDT) Surgical Pathology Report ? [facility] ? Provider: ?? YAQUELIN CHAN ? Pt. Name: ?? ANA JENNIFER Dajuan ? Acc #: ?[id number] ?Pt. ? Col Date: ?? 01/02/2011 ? [...] Tissue Description: ?? Soft, brown tissues. ? [facility] ? Provider: ?? YAQUELIN CHAN ? Pt. Name: ?? JENNIFER PEREZ ? Acc #: ?[id number] ?Pt. ? Col Date: ?? 01/02/2011 ? [...] sigmoid colon ? Clinical History/Diagnosi s: ? surveillance [facility] 01/02/2011 10:1 4 AM EDT Yaquelin Chan MD PATHOLOGY/CYTOLOGY O IRMA [facility] * COLONOSCOPY (01/02/2011 9:07 AM EDT) COLONOSCOPY [facility] Endoscopy ___ Patient Name: Jennifer Perez ? Procedure Date: 01/02/2011 09:07:07 AM ? [facility]: [id number] ? Date of : 1960 ? Age: 50 ? ___ Procedure: ? Colonoscopy Indications: ? High risk colon cancer surveillance: ? Ulcerative pancolitis Providers: ? Yaquelin Chan MD, Ramya Guido, ? RN, Nathaniel Oliva, Buttonhole Tacker Referring MD: ?Marcio Carranza MD, Dajuan Garcia ? MD [...] Fri01/02/11 at 09, Pain, Intra-Operative (Intra-Procedure), Routine 932 (Given - Provid er: Ramya Guido RN) midazolam (VERSED) injection (COMPLETED) ONCE PRN, 1 dose, Starting on Fri01/02/11 at 0928, Until Fri01/02/11 at 0928, Sleep, Intra-Operative (Intra-Procedure), Routine 927 (Given - Provid er: Ramya Guido RN) midazolam (VERSED) injection (COMPLETED) Intravenous, ONCE PRN, 1 dose, Starting on 4/20/11 at 0933, Until 01/02/11 at 0933, Sleep, Intra-Operative (Intra-Procedure), Routine 0933 (Given - Provid er: Ramya Guido RN) documented in this encounter Care Teams Emery Grinder Relationship Specialty Start Date End Date Marcio Carranza MD [address] [place] [address] PCP - General 08/07/10 11/10/17 documented as of this encounter
--- OUTSIDE RECORDS SUMMARY | 2024-10-04 16:11 | XMS_ITS | Encounter Summary ---
Author Organization [place] [address] Care Team Providers Care 8Th Grade Teacher Name Role Phone Marcio Carranza MD Primary Care Provider +1 -[phone] Reason for Visit * Reason Comments Hepatic Disease Encounter Details Date Type Department Care Team (Late st Contact Info) Description 02/21/2011 12:00 PM EDT [place] [phone] Marc Chan MD Ulcerative colitis; MÉNDEZ (nonalcoholic steatohepatitis); Lipid disorder [...] and Hepatology Clinic Provider: Marc Chan MD ([id number]) Referral Doctor: Marcio Carranza MD [facility] [address] [place] [address] Problem List: 1. MÉNDEZ (stage 2 in [...] conclusion of the visit. Marc Chan MD Licensed Home Inspectorinstructor technical training & Director of End Stage Liver Care Division of Gastroenterology and Hepatology tel: fax: [email or web address] documented in this encounter Plan of Treatment Upcoming Encounters Date Type Department Care Team (Late st Contact Info) Description 10/16/2024 10:00 AM EST Hospital Encounter [place] [address] Arrived 11/12/2024 8:00 AM EST Appointment Mammography/[place] [address] Gabe Fong MD [facility] [place] [address] 11/30/2024 2:30 PM EDT Office [place] [address] Gabe Fong MD [facility] [place] [address] 12/07/2024 2:30 PM EDT TH Visit (TeleHealth) [place] [address] Rosemarie Morrow APRN [facility] [place] [address] documented as of this encounter Visit Diagnoses Diagnosis Ulcerative colitis Ulcerative colitis, unspecified MÉNDEZ (nonalcoholic steatohepatitis) Other chronic nonalcoholic liver disease Lipid disorder Unspecified disorder of lipoid metabolism documented in this encounter Care Teams 8Th Grade Teacher Relationship Specialty Start Date End Date Marcio Carranza MD [address] [place] [address] PCP - General 08/07/10 11/10/17 documented as of this encounter
--- OUTSIDE RECORDS SUMMARY | 2024-10-04 16:11 | XMS_ITS | Encounter Summary ---
Author Organization [facility] [place] [address] Care Team Providers Care Furnace Installer Name Role Phone Marcio Carranza MD Primary Care Provider +1 -[phone] Reason for Visit * Reason Comments Medication Refill Encounter Details Date Type Department Care Team (Late st Contact Info) Description 04/03/2012 [place] [address] Eden Reynoso MD [address] [place] [address] [place] [address] Social History Tobacco Use Types Packs/Day Years [...] AM EST Hospital Encounter Non-[place] [address] Arrived 11/12/2024 8:00 AM EST Appointment Mammography/DXA at [place] [address] Gabe Fong MD [facility] [place] [address] 11/30/2024 2:30 PM EDT Office Visit Rheumatology at [place] [address] Gabe Fong MD [facility] [place] [address] 12/07/2024 2:30 PM EDT TH Visit (TeleHealth) Gastroenterology at [place] [address] Roseamrie Morrow, SKIP [facility] [place] [place] [address] documented as of this encounter Visit Diagnoses Not on filedocumented in this encounter Care Teams Furnace Installer Relationship Specialty Start Date End Date Macrio Carranza MD [address] [place] [address] PCP - General 08/07/10 11/10/17 documented as of this encounter
--- OUTSIDE RECORDS SUMMARY | 2024-10-04 16:11 | XMS_ITS | Encounter Summary ---
[place] [address] Care Team Providers Care Top Cager Name Role Phone Marcio Carranza MD Primary Care Provider +1 -[phone] Encounter Details Date Type Department Care Team (Late st Contact Info) Description 02/08/2011 External Results [place] [address] Marc Chan MD Social History [...] AM EST Hospital Encounter Non-Invasive [place] [address] Arrived 11/12/2024 8:00 AM EST Appointment Mammography/[place] [address] Gabe Fong MD [facility] [place] [address] 11/30/2024 2:30 PM EDT Office [place] [address] Gabe Fong MD [facility] [place] [address] 12/07/2024 2:30 PM EDT TH Visit (TeleHealth) [place] [address] Rosemarie Morrow APRN [facility] [place] [address] documented as of this encounter Procedures Procedure Name Priority Date/Time Associated Diagnosis Comments LAB SCAN Routine 02/07/2011 documented in this encounter Results * Scan Doc: Lab (02/07/2011) Marc Chan MD MEDIA MGR SCAN EXT O RDR/RSLT documented in this encounter Visit Diagnoses Not on filedocumented in this encounter Care Teams Top Cager Relationship Specialty Start Date End Date Marcio Carranza MD [address] [place] [address] PCP - General 08/07/10 11/10/17 documented as of this encounter
--- OUTSIDE RECORDS SUMMARY | 2024-10-04 16:11 | XMS_ITS | Encounter Summary ---
Author Organization [facility] [place] [address] Care Team Providers Care Production Welding Supervisor Name Role Phone Marcio Carranza MD Primary Care Provider +1 -[phone] Reason for Visit * Reason Onset Date Comments Medication Refill 06/06/2014 Encounter Details Date Type Department Care Team (Late st Contact Info) Description 06/06/2014 Refill Dermatology at [facility] [address] [place] [address] July Pack MD Scalp psoriasis (Primary Dx) Social History Tobacco [...] 10:23 AM EDT Fax request received form [facility], [place] requesting refill of Clobetasol solution. Patient last seen in clinic 05/17/2014 Refill prepared and forwarded to July Pack MD for approval. documented in this encounter Plan of Treatment Upcoming Encounters Date Type Department Care Team (Late st Contact Info) Description 10/16/2024 10:00 AM EST Hospital Encounter Non-Invasive Cardiology Lab [place] [phone] Arrived 11/12/2024 8:00 AM EST Appointment Mammography/[place] [address] Gabe Fong MD [facility] [place] [address] 11/30/2024 2:30 PM EDT Office [place] [address] Gabe Fong MD [facility] [place] [address] 12/07/2024 2:30 PM EDT TH Visit (TeleHealth) [place] [address] Rosemarie Morrow APRN [facility] [place] [address] documented as of this encounter Visit Diagnoses Diagnosis Scalp psoriasis- Primary Other psoriasis documented in this encounter Care Teams Production Welding Supervisor Relationship Specialty Start Date End Date Macrio Carranza MD [address] [place] [address] PCP - General 08/07/10 11/10/17 documented as of this encounter
--- OUTSIDE RECORDS SUMMARY | 2024-10-04 16:11 | XMS_ITS | Encounter Summary ---
Author Organization [facility] [place] [address] Care Team Providers Care Company Dancer Name Role Phone Marcio Carranza MD Primary Care Provider +1 -[phone] Reason for Visit * Reason Comments Follow-up Spondylitis; Ankylosing Encounter Details Date Type Department Care Team (Late st Contact Info) Description 02/21/2011 9:45 AM EDT [place] [phone] Eden Reynoso MD [address] [place] [address] [place] [address] Spondylitis (Primary Dx); Enteropathic arthropathy Discharge Disposition: [...] she is seeing Dr. Chan here at [facility]. She started on the Humira late [...] EST Hospital Encounter Non-Invasive [place]iology [place] [address] Arrived 11/12/2024 8:00 AM EST Appointment Mammography/DXA at [place] [address] Gabe Fong MD [facility] [place] [address] 11/30/2024 2:30 PM EDT Office Visit Rheumatology at [place] [address] Gabe Fogn MD [facility] [place] [address] 12/07/2024 2:30 PM EDT TH Visit (TeleHealth) Gastroenterology at [place] [address] Rosemarie Morrow APRN [facility] [place] [address] documented as of this encounter Visit Diagnoses Diagnosis Spondylitis- Primary 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
--- OUTSIDE RECORDS SUMMARY | 2024-10-04 16:11 | XMS_ITS | Encounter Summary ---
[place] [address] Care Team Providers Care Legal Librarian Name Role Phone Marcio Carranza MD Primary Care Provider +1 -[phone] Encounter Details Date Type Department Care Team (Late st Contact Info) Description 10/15/2010 8:45 AM EST Follow-[place] [address] Eden Reynoso MD [address] [place] [address] [place] [address] Discharge Disposition: Home Social History Tobacco Use [...] AM EST Hospital Encounter Non-[place] [address] Arrived 11/12/2024 8:00 AM EST Appointment Mammography/[place] [address] Gabe Fong MD [facility] [place] [address] 11/30/2024 2:30 PM EDT Office [place] [address] Gabe Fong MD [facility] [place] [address] 12/07/2024 2:30 PM EDT TH Visit (TeleHealth) [place] [address] Rosemarie Morrow, SKIP [facility] [place] [address] documented as of this encounter Visit Diagnoses Not on filedocumented in this encounter Care Teams Legal Librarian Relationship Specialty Start Date End Date Marcio Carranza MD [address] [place] [address] PCP - General 08/07/10 11/10/17 documented as of this encounter
--- OUTSIDE RECORDS SUMMARY | 2024-10-04 16:11 | XMS_ITS | Encounter Summary ---
[place] [address] Care Team Providers Care Postal Sorting Officer Name Role Phone Marcio Carranza MD Primary Care Provider +1 -[phone] Encounter Details Date Type Department Care Team (Late st Contact Info) Description 08/14/2010 2:45 PM EST Follow-[place] [address] Eden Reynoso MD [address] [place] [address] [place] [address] Social History Tobacco Use Types Packs/Day Years [...] AM EST Hospital Encounter Non-[place] [address] Arrived 11/12/2024 8:00 AM EST Appointment Mammography/[place] [address] Gabe Fong MD [facility] [place] [address] 11/30/2024 2:30 PM EDT Office Visit [place] [address] Gabe Fong MD [facility] [place] [address] 12/07/2024 2:30 PM EDT TH Visit (TeleHealth) [place] [address] Rosemarie Morrow APRN [facility] [place] [address] documented as of this encounter Visit Diagnoses Not on filedocumented in this encounter Care Teams Postal Sorting Officer Relationship Specialty Start Date End Date Marcio Carranza MD [address] [place] [address] PCP - General 08/07/10 11/10/17 documented as of this encounter
--- OUTSIDE RECORDS SUMMARY | 2024-10-04 16:11 | XMS_ITS | Encounter Summary ---
Author Organization [facility] [place] [address] Care Team Providers Care Drupal Web Developer Name Role Phone Marcio Carranza MD Primary Care Provider +1 -[phone] Reason for Visit * Reason Onset Date Comments Medication Refill 04/02/2012 Encounter Details Date Type Department Care Team (Late st Contact Info) Description 04/02/2012 Ref[place] [address] Eden Reynoso MD [address] [place] [address] [place] [address] Spondylitis Social History Tobacco Use Types Packs/Day [...] AM EST Hospital Encounter Non-[place] [address] Arrived 11/12/2024 8:00 AM EST Appointment Mammography/DXA at [place] [phone] Gabe Fong MD [facility] [place] [address] 11/30/2024 2:30 PM EDT Office Visit Rheumatology at [place] [phone] Gabe Fong MD [facility] [place] [address] 12/07/2024 2:30 PM EDT TH Visit (TeleHealth) Gastroenterology at [place] [phone] Rosemarie Morrow APRN [facility] [place] [address] documented as of this encounter Visit Diagnoses Diagnosis Spondylitis Unspecified inflammatory spondylopathy documented in this encounter Care Teams Drupal Web Developer Relationship Specialty Start Date End Date Marcio Carranza MD [address] [place] [address] PCP - General 08/07/10 11/10/17 documented as of this encounter
--- OUTSIDE RECORDS SUMMARY | 2024-10-04 16:11 | XMS_ITS | Encounter Summary ---
Author Organization [facility] [place] [address] Care Team Providers Care Svp Programmatic Tv Name Role Phone Marcio Carranza MD Primary Care Provider +1 -[phone] Reason for Visit * Reason Comments Follow-up Encounter Details Date Type Department Care Team (Late st Contact Info) Description 05/17/2014 3:30 PM EDT Follow-Up Dermatology at [facility] [address] [place] [address] Marcio Townsend MD Panniculitis (Primary Dx) Discharge Disposition: Home Social [...] my call. YOHANA RUBALCAVA LPN * Cara Cartagena MD - 05/19/2014 7:55 AM EDT I directly supervised Dr. Townsend during this office visit. Dr. Townsend presented the historyand physical exam to me. I then saw and examined this patient with Dr. Townsend . We reviewed thehistory and pertinent details and I confirmed the physical findings. I agree with the details of the history and physical exam as documented in Dr. Townsend's note. CARA CARTAGENA MD Staff Physician * Marcio Townsend MD - 05/17/2014 3:25 PM EDT DERMATOLOGY [...] accuracy of the documentation in this encounter. Marcio Townsend MD Resident in Dermatology [facility] Patient seen and evaluated with staff fisheries inspector: Cara Cartagena MD Section of Dermatology [facility] documented in this encounter Plan of Treatment Upcoming Encounters Date Type Department Care Team (Late st Contact Info) Description 10/16/2024 10:00 AM EST Hospital Encounter Non-[place] [address] Arrived 11/12/2024 8:00 AM EST Appointment Mammography/[place] [address] Gabe Fong MD [facility] [place] [address] 11/30/2024 2:30 PM EDT Office Visit Rheumatology at [place] [phone] Gabe Fong MD [facility] [place] [address] 12/07/2024 2:30 PM EDT TH Visit (TeleHealth) Gastroenterology at [place] [phone] Rosemarie Morrow APRN [facility] [place] [address] documented as of this encounter Procedures Procedure Name Priority Date/Time Associated Diagnosis Comments AFB CULTURE STAT 05/17/2014 4:14 PM EDT Panniculitis TISSUE CULTURE STAT 05/17/2014 4:14 PM EDT Panniculitis FUNGUS CULTURE Routine 05/17/2014 4:14 PM EDT documented in this encounter Results * Fungus culture (05/17/2014 4:14 PM EDT) Fungus Culture ? Patient Name: KIM FUNES ?Ordered By: MARCIO TOWNSEND ? MR#: [id number] ?LOC: ??HDM ? /Sex: ??1960 (54 years), [...] Narrative Resulting Agency Comment Spec In Lab Marcio Townsend MD MICROBIOLOGY - NERAL ORDERABLES [facility] * AFB culture Biopsy (05/17/2014 4:14 PM EDT) Acid Fast Bacilli Culture ? Patient Name: KIM FUNES ?Ordered By: CARA CARTAGENA ? MR#: [id number] ?LOC: ??HDM ? /Sex: ??1960 (54 years), [...] Resulting Agency Comment Spec In Lab Cara Cartagena MD MICROBIOLOGY - GENER AL ORDERABLES [facility] * Tissue culture Leg (05/17/2014 4:14 PM EDT) Tissue Culture ? Patient Name: KIM FUNES ?Ordered By: CARA CARTAGENA ? MR#: [id number] ?LOC: ??HDM ? /Sex: ??1960 (54 years), [...] 08:40 ? No growth to date. ? [facility] Specimen from lower limb (specimen) 05/17/2014 4:14 PM EDT 05/17/2014 4:53 PM EDT Narrative Resulting Agency Comment Spec In Lab Cara Cartagena MD MICROBIOLOGY - GENER AL ORDERABLES [facility] documented in this encounter Visit Diagnoses Diagnosis Panniculitis- Primary Panniculitis, unspecified site documented in this encounter Care Teams Svp Programmatic Tv Relationship Specialty Start Date End Date Marcio Carranza MD [address] [place] [address] PCP - General 08/07/10 11/10/17 documented as of this encounter
--- OUTSIDE RECORDS SUMMARY | 2024-10-04 16:11 | XMS_ITS | Encounter Summary ---
Author Organization Count Includes [facility] [address] Care Team Providers Care Tax Appraiser Name Role Phone Marcio Carranza MD Primary Care Provider +1 -[phone] Reason for Visit * Reason Onset Date Comments Medication Refill 10/08/2012 Encounter Details Date Type Department Care Team (Late st Contact Info) Description 10/08/2012 Ref[place] [address] Jose Manuel Reynoso MD [address] [place] [address] [place] [address] Spondylitis Social History Tobacco Use Types Packs/Day [...] PM ESTFrom: Kim Funes To: Jose Manuel Ryenoso MD Sent: 10/08/2012 7:21 PM EST Subject: Medication Renewal Request Original authorizing provider: JOSE MANUEL REYNOSO MD Kim Funes would like a refill of the following medications: adalimumab (HUMIRA) 40 mg/0.8 mL injection [JOSE MANUEL REYNOSO MD] [facility] pharmacy: [facility] Comment: documented in this encounter Plan of Treatment Upcoming Encounters Date Type Department Care Team (Late st Contact Info) Description 10/16/2024 10:00 AM EST Hospital Encounter Non-Invasive [place] [address] Arrived 11/12/2024 8:00 AM EST Appointment Mammography/DXA at [place] [address] Gabe Fong MD [facility] [place] [address] 11/30/2024 2:30 PM EDT Office Visit Rheumatology at [place] [address] Gabe Fong MD [facility] [place] [address] 12/07/2024 2:30 PM EDT TH Visit (TeleHealth) Gastroenterology at [place] [address] Rosemarie Morrow APRN [facility] [place] [address] documented as of this encounter Visit Diagnoses Diagnosis Spondylitis Unspecified inflammatory spondylopathy documented in this encounter Care Teams Tax Appraiser Relationship Specialty Start Date End Date Marcio Carranza MD [address] [place] [address] PCP - General 08/07/10 11/10/17 documented as of this encounter
--- OUTSIDE RECORDS SUMMARY | 2024-10-04 16:11 | XMS_ITS | Encounter Summary ---
Author Organization [facility] [place] [address] Care Team Providers Care Assistant Manager Of Operations Name Role Phone Marcio Carranza MD Primary Care Provider +1 -[phone] Encounter Details Date Type Department Care Team (Late st Contact Info) Description 01/02/2011 9:00 AM EDT - 01/02/2011 9:45 AM EDT Surgery [place] [phone] Yaquelin Chan MD COLONOSCOPY FLEXIBLE, WITH BX (WRVU 3.56) Social [...] AM EST Hospital Encounter Non-[place] [address] Arrived 11/12/2024 8:00 AM EST Appointment Mammography/[place] [address] Gabe Fong MD [facility] [place] [address] 11/30/2024 2:30 PM EDT Office [place] [address] Gabe Fong MD [facility] [place] [address] 12/07/2024 2:30 PM EDT TH Visit (TeleHealth) [place] [address] Rosemarie Morrow APRN [facility] [place] [address] documented as of this encounter Procedures Procedure [...] 10:14 AM EDT) Surgical Pathology Report [id number] ? Location: 4T The signing pathologist has [...] report in rendering the final pathologic diagnosis. [facility] 01/02/2011 10:1 4 AM EDT Yaquelin Chan MD PATHOLOGY/CYTOLOGY O RDERABLES [facility] * SURGICAL PATHOLOGY REPORT (01/02/2011 10:14 AM EDT) Surgical Pathology Report ? [facility] ? Provider: ?? YAQUELIN CHAN ? Pt. Name: ?? ANAJENNIFER ? Acc #: ?[id number] ?Pt. ? Col Date: ?? 01/02/2011 ? [...] ? AAS ? 01/04/11 Verified by: ? Stephanie HYMAN, D[place] ? Pathologist ? (Electronic Signature) ? The [...] Name: ?? JENNIFER FUNES ? Acc #: ?[id number] ?Pt. ? Col Date: ?? 01/02/2011 ? [...] ? Clinical History/Diagnosi s: ? UC surveillance [facility] 01/02/2011 10:1 4 AM EDT Yaquelin Chan MD PATHOLOGY/CYTOLOGY O [facility] * COLONOSCOPY (01/02/2011 9:07 AM EDT) COLONOSCOPY [facility] Endoscopy ___ Patient Name: Jennifer Funes ? Procedure Date: 01/02/2011 09:07:07 AM ? [facility]: [id number] ? Date of : 1960 ? Age: 50 ? ___ Procedure: ? Colonoscopy Indications: ? High risk colon cancer surveillance: ? Ulcerative pancolitis Providers: ? Yaquelin Chan MD, Ramya Guido, ? RN, Nathaniel Oliva, Plant Reliability Engineer Referring MD: ?Marcio Carranza MD, Dajuan Garcia [...] AM EDT Unknown GENERAL SURGICAL ORD ERABLES Performing Organization Address City/State/[facility] Co de Phone Number [employer] documented in this encounter Visit Diagnoses Not on filedocumented in this encounter Administered Medications Inactive Administered Medications - up to 3 most recent administrations Medication Order MAR Action Action Date Dose Rate Site fentaNYL 50mcg/mL injection ONCE PRN, 1 dose, Starting on Fri01/02/11 at 09, Until Fri01/02/11 at 927, Pain, Intra-Operative (Intra-Procedure), Routine Given 01/02/2011 9:28 AM EDT 100 mcg Left Arm fentaNYL 50mcg/mL injection Intravenous, ONCE PRN, 1 dose, Starting on Fri01/02/11 at 0933, Until Fri01/02/11 at 09, Pain, Intra-Operative (Intra-Procedure), Routine Given 01/02/2011 9:33 AM EDT 25 mcg Left Arm midazolam (VERSED) injection ONCE PRN, 1 dose, Starting on Fri01/02/11 at 0928, Until Fri01/02/11 at 927, Sleep, Intra-Operative (Intra-Procedure), Routine Given 01/02/2011 9:28 [...] Fri01/02/11 at 0933, Until Fri01/02/11 at 932, Pain, Intra-Operative (Intra-Procedure), Routine 932 (Given - [...] RN) documented in this encounter Care Teams Assistant Manager Of Operations Relationship Specialty Start Date End Date Marcio Carranza MD [address] [place] [address] PCP - General 08/07/10 11/10/17 documented as of this encounter
--- OUTSIDE RECORDS SUMMARY | 2024-10-04 16:11 | XMS_ITS | Encounter Summary ---
Author Organization [facility] [place] [address] Care Team Providers Care Gas Torch Brazier Name Role Phone Marcio Carranza MD Primary Care Provider +1 -[phone] Reason for Visit * Reason Onset Date Comments Medication Refill 03/17/2012 Encounter Details Date Type Department Care Team (Late st Contact Info) Description 03/17/2012 Refill [place] [phone] Eden Reynoso MD [address] [place] [address] [place] [address] Social History Tobacco Use Types Packs/Day Years [...] AM EST Hospital Encounter [place] [address] Arrived 11/12/2024 8:00 AM EST Appointment Mammography/DXA at [address] Gabe Fong MD [facility] [place] [address] 11/30/2024 2:30 PM EDT Office [place] [address] Gabe Fong MD [facility] [place] [address] 12/07/2024 2:30 PM EDT TH Visit (TeleHealth) Gastroenterology at [place] [phone] Rosemarie Morrow APRN [facility] [place] [address] documented as of this encounter Visit Diagnoses Not on filedocumented in this encounter Care Teams Gas Torch Brazier Relationship Specialty Start Date End Date Marcio Carranza MD [address] [place] [address] PCP - General 08/07/10 11/10/17 documented as of this encounter
--- OUTSIDE RECORDS SUMMARY | 2024-10-04 16:11 | XMS_ITS | Encounter Summary ---
[place] [address] Care Team Providers Care Ager Tender Name Role Phone Marcio Carranza MD Primary Care Provider +1 [phone] Encounter Details Date Type Department Care Team (Late st Contact Info) Description 01/14/2011 Orders [place] [address] Marc Chan MD Social History [...] AM EST Hospital Encounter Non-[place] [address] Arrived 11/12/2024 8:00 AM EST Appointment Mammography/[place] [address] Gabe Fong MD [facility] [place] [address] 11/30/2024 2:30 PM EDT Office [place] [address] Gabe Fong MD [facility] [place] [address] 12/07/2024 2:30 PM EDT TH Visit (TeleHealth) [place] [address] Rosemarie Morrow APRN [facility] [place] [address] documented as of this encounter Visit Diagnoses Not on filedocumented in this encounter Care Teams Ager Tender Relationship Specialty Start Date End Date Marcio Carranza MD [address] [place] [address] PCP - General 08/07/10 11/10/17 documented as of this encounter
--- OUTSIDE RECORDS SUMMARY | 2024-10-04 16:11 | XMS_ITS | Encounter Summary ---
Author Organization [facility] [place] [address] Care Team Providers Care Cement Mason Apprentice Name Role Phone Marcio Carranza MD Primary Care Provider +1 [phone] Encounter Details Date Type Department Care Team (Late st Contact Info) Description 06/03/2014 Tele[place] [phone] Cherrie Augustine LPN Social History Tobacco Use [...] called and said she was seen at [facility] today and they told her [...] AM EST Hospital Encounter [place] [address] Arrived 11/12/2024 8:00 AM EST Appointment Mammography/[place] [address] Gabe Fong MD [facility] [place] [address] 11/30/2024 2:30 PM EDT Office Visit Rheumatology at [address] Gabe Fong MD [facility] [place] [address] 12/07/2024 2:30 PM EDT TH Visit (TeleHealth) [place] [address] Rosemarie Morrow APRN [facility] [place] [address] documented as of this encounter Visit Diagnoses Not on filedocumented in this encounter Care Teams Cement Mason Apprentice Relationship Specialty Start Date End Date Marcio Carranza MD [address] [place] [address] PCP - General 08/07/10 11/10/17 documented as of this encounter
--- OUTSIDE RECORDS SUMMARY | 2024-10-04 16:11 | XMS_ITS | Encounter Summary ---
Author Organization [facility] [place] [address] Care Team Providers Care Skilled Nursing Facilities Professional Name Role Phone Marcio Carranza MD Primary Care Provider +1 -[phone] Reason for Visit * Reason Comments Follow-up Encounter Details Date Type Department Care Team (Late st Contact Info) Description 08/19/2011 2:45 PM EST Follow-[place] [phone] Eden Reynoso MD [address] [place] [address] [place] [address] Spondylitis (Primary Dx) Discharge Disposition: Home Social [...] she sees Dr. Chan here at [facility]. She reports that over the past six [...] Hospital Encounter Non-Invasive Cardiology Lab [place] [address] Arrived 11/12/2024 8:00 AM EST Appointment Mammography/DXA at [place] [address] Gabe Fong MD [facility] [place] [address] 11/30/2024 2:30 PM EDT Office Visit Rheumatology at [place] [address] Gabe Fong MD [facility] [place] [address] 12/07/2024 2:30 PM EDT TH Visit (TeleHealth) Gastroenterology at [place] [address] Rosemarie Morrow, SKIP [facility] [place] [address] documented as of this encounter Visit Diagnoses Diagnosis Spondylitis- Primary Unspecified inflammatory spondylopathy documented in this encounter Care Teams Skilled Nursing Facilities Professional Relationship Specialty Start Date End Date Marcio Carranza MD [address] [place] [address] PCP - General 08/07/10 11/10/17 documented as of this encounter
--- OUTSIDE RECORDS SUMMARY | 2024-10-04 16:11 | XMS_ITS | Encounter Summary ---
Author Organization [facility] [place] [address] Care Team Providers Care Plastering Contractor Name Role Phone Marcio Carranza MD Primary Care Provider [phone] [phone] Encounter Details Date Type Department Care Team (Late st Contact Info) Description 08/15/2010 12:30 PM EST Procedure visit [place] [address] Social History Tobacco Use Types Packs/Day Years [...] AM EST Hospital Encounter Non-Invasive [place] [address] Arrived 11/12/2024 8:00 AM EST Appointment Mammography[place] [address] Gabe Fong MD [facility] [address] [place] [address] 11/30/2024 2:30 PM EDT Office [place] [address] Gabe Fong MD [facility] [place] [address] 12/07/2024 2:30 PM EDT TH Visit (TeleHealth) [place] [address] Rosemarie Morrow APRN [facility] [place] [address] documented as of this encounter Visit Diagnoses Not on filedocumented in this encounter Care Teams Plastering Contractor Relationship Specialty Start Date End Date Marcio Carranza MD [address] [place] [address] PCP - General 08/07/10 11/10/17 documented as of this encounter
--- OUTSIDE RECORDS SUMMARY | 2024-10-04 16:11 | XMS_ITS | Encounter Summary ---
Author Organization [facility] [address] Care Team Providers Care Equine Internship Name Role Phone Marcio Carranza MD Primary Care Provider +1 -[phone] Reason for Visit * Reason Comments Follow-up Encounter Details Date Type Department Care Team (Late st Contact Info) Description 05/11/2014 8:20 AM EDT Office Visit Dermatology at [facility] [address] [place] [address] July Dumont MD Neoplasm of unspecified nature of bone, soft [...] * Patient Instructions* Mali Dupree LPN - 05/11/2014 8:58 AM EDT Treatment [...] or concerns, please call the office at [phone]. If it is after 5PM, or a holiday or weekend, please call [phone] and ask for the Refractory Furnace Designer on-call. documented in this encounter Progress Notes [...] as sporotrichosis- patient agreed to biopsy to tree trimmer helper in diagnosis. May need additional biopsy [...] call for questions or concerns. MALI DUPREE LPN. has performed the documentation for this encounter in the presence of and acting as a scribe for July Dumont MD, Dermatology Resident I performed the above scribed service and agree with the accuracy of the documentation in this encounter. July Dumont MD Resident in Dermatology [facility] Patient seen and evaluated with staff php web developer: Haley Soto MD Section of Dermatology [facility] documented in this encounter Plan of Treatment Upcoming Encounters Date Type Department Care Team (Late st Contact Info) Description 10/16/2024 10:00 AM EST Hospital Encounter Non-Invasive Cardiology Lab [place] [address] Arrived 11/12/2024 8:00 AM EST Appointment Mammography/DXA at [place] [address] Gabe Fong MD [facility] [place] [address] 11/30/2024 2:30 PM EDT Office Visit Rheumatology at [place] [address] Gabe Fong MD [facility] [place] [address] 12/07/2024 2:30 PM EDT TH Visit (TeleHealth) Gastroenterology at [place] [address] Rosemarie Morrow APRN [facility] [place] [address] documented as of this encounter Procedures Procedure Name Priority Date/Time Associated Diagnosis Comments SPECIMEN TO PATHOLOGY (NON-OR) Routine 05/11/2014 9:29 AM EDT Neoplasm of unspecified nature of bone, soft tissue, and skin SURGICAL PATHOLOGY REPORT Routine 05/11/2014 9:29 AM EDT documented in this encounter Results * Surgical Pathology Report (05/11/2014 9:29 AM EDT) Final Diagnosis ? [facility] ? Provider: ?? JULY DUMONT ? Pt. Name: ?? JENNIFER PEREZ ? Acc #: ?[id number] ? Pt. ? Col Date: ?? 05/11/2014 ? /Sex: ?1960,(54 years),Female ? Rec Date: ?? 05/11/2014 ? LOC: ?[facility] ? SURGICAL PATHOLOGY ? ---Pathologic Diagnosis--- ? Skin, left anterior lower leg, punch biopsy: ?Septal and lobular panniculitis with neutrophilic microabscesses and a ? mixed inflammatory cell infiltrate. See comment. ? CR-0 ? 05/12/14 ? BJM ? 05/13/14 Verified by: ? Luiz Martell MD ? Dermatopathologist ? (Electronic Signature) ? The [...] A - Labeled/Fixative: Patient's name, formalin. ? [facility] ? Provider: ?? JULY DUMONT ? Pt. Name: ?? JENNIFER PEREZ ? Acc #: ?[id number] ? Pt. ? Col Date: ?? 05/11/2014 [...] ? as sporotrichosis 05/13/2014 12:42 PM EDT [facility] SPECIMEN FROM SKIN / Unknown 05/11/2014 9:29 AM EDT 05/11/2014 9:29 AM EDT July Dumont MD PATHOLOGY/CYTOLOGY O RDERABLES Performing Organization Address City/[facility] Co de Phone Number TYSHAWN EARLJAKE [facility] [place] [address] * Specimen to Pathology (NON-OR) (05/11/2014 9:29 AM EDT) AP Specimen 05/11/2014 9:29 AM EDT 05/11/2014 9:29 AM EDT Narrative TYSHAWN RICKETTS - 05/11/2014 9:29 AM EDT Specimen requisition ordered. ??Separate Pathology report to follow Haley Soto MD PATHOLOGY/CYTOLOGY ORDERABLES Performing Organization Address [facility] Co de Phone Number DAOTRU EARLJAKE documented in this encounter Visit Diagnoses Diagnosis Neoplasm of unspecified nature of bone, soft tissue, and skin- Primary documented in this encounter Care Teams Equine Internship Relationship Specialty Start Date End Date Marcio Carranza MD [address] [place] [address] PCP - General 08/07/10 11/10/17 documented as of this encounter
--- OUTSIDE RECORDS SUMMARY | 2024-10-04 16:11 | XMS_ITS | Encounter Summary ---
Author Organization [facility] [place] [address] Care Team Providers Care Precision Lens Technician Name Role Phone Marcio Carranza MD Primary Care Provider +1 -[phone] Encounter Details Date Type Department Care Team (Late st Contact Info) Description 06/03/2014 Telephone Dermatology at [facility] [address] [place] [address] July Pack MD Social History Tobacco Use [...] AM EST Hospital Encounter Non-Invasive Cardiology Lab [place] [phone] Arrived 11/12/2024 8:00 AM EST Appointment Mammography/[place] [address] Gabe Fong MD [facility] [place] [address] 11/30/2024 2:30 PM EDT Office Visit Rheumatology at [place] [phone] Gabe Fong MD [facility] [address] 12/07/2024 2:30 PM EDT TH Visit (TeleHealth) Gastroenterology at [address] Rosemarie Morrow APRN [facility] [place] [address] documented as of this encounter Visit Diagnoses Not on filedocumented in this encounter Care Teams Precision Lens Technician Relationship Specialty Start Date End Date Marcio Carranza MD [address] [place] [address] PCP - General 08/07/10 11/10/17 documented as of this encounter
--- OUTSIDE RECORDS SUMMARY | 2024-10-04 16:12 | XMS_ITS | Clinical Summary ---
Author Organization [facility] Address [address] [place] [address] Care Team Providers Care Package Line Relief Operator Name Role Phone Marcio Carranza MD Primary Care Provider Unav ailable Social History Tobacco Use Types Packs/Day Years Used Date Smoking Tobacco: Never Assessed Comments Unknown Sex and Gender Information Value Date Recorded Sex Assigned at Not on file Legal Sex Female 18:13 EST Gender Identity Not on file Sexual Orientation Not on file Plan of Treatment Health Maintenance Due Date Last Done Comments Hepatitis C Screen 1960 COVID-19 Vaccine (2023-25 season) 2024 RSV Immunization ( o r 60+ Years) (1 - 1-dose 75+ series) 2036 Care Teams Package Line Relief Operator Relationship Specialty Start Date End Date Marcio Carranza MD PCP - General 07/26/15
--- OUTSIDE RECORDS SUMMARY | 2024-10-04 16:12 | XMS_ITS | Encounter Summary ---
Author Organization [facility] Address [address] [place] [address] Care Team Providers Care Middle School Counselor Name Role Phone Marcio Carranza MD Primary Care Provider Unav ailable Encounter Details Date Type Department Care Team (Late st Contact Info) Description 06/13/2023 Lab Requisition [facility] Pathology & Laboratory Medicine - [address] [phone] Outr Resulting Lab, Provider Social History Tobacco [...] 85 - 499 mg/dL 06/16/2023 9:53 EDT [facility] Blood VENOUS BLOOD / Unknown 06/13/2023 14:35 EDT 06/13/2023 21:23 EDT us Provider Outr Resulting Lab CHEMISTRY & BLOOD GA S ORDERABLES Final Result [facility] [address] [place] [address] documented in this encounter Visit Diagnoses Not on filedocumented in this encounter Care Teams Middle School Counselor Relationship Specialty Start Date End Date Marcio Carranza MD PCP - General 07/26/15 documented as of this encounter
--- OUTSIDE RECORDS SUMMARY | 2024-10-04 16:12 | XMS_ITS | Encounter Summary ---
Author Organization [facility] Address [address] [place] [address] Care Team Providers Care Bedspread Folder Name Role Phone Marcio Carranza MD Primary Care Provider Unav ailable Encounter Details Date Type Department Care Team (Late st Contact Info) Description 05/16/2023 Lab Requisition [facility] Pathology & Laboratory Medicine - [address] [phone] Outr Resulting Lab, Provider Social History Tobacco [...] IGA <1.2 <4.0 U/mL 05/19/2023 12:33 EDT [facility] Comment: A negative result may be due to IgA deficiency and does not rule out celiac disease. ? Negative: ??<4.0 U/mL ? Weak Positive: ??4.0 - 10.0 U/mL ? Positive: ??>10.0 U/mL Results were obtained with the [employer] QUANTA Lite R h-tTG IgA CASE assay on the SeroMatch DSX. Blood VENOUS BLOOD / Unknown 05/16/2023 14:30 EDT 05/16/2023 20:53 EDT us Provider Outr Resulting Lab IMMUNOLOGY AND SEROL OGY ORDERABLES Final Result [facility] [address] [place] [address] documented in this encounter Visit Diagnoses Not on filedocumented in this encounter Care Teams Bedspread Folder Relationship Specialty Start Date End Date Marcio Carranza MD PCP - General 07/26/15 documented as of this encounter
--- OUTSIDE RECORDS SUMMARY | 2024-10-04 16:12 | XMS_ITS | Encounter Summary ---
Author Organization [facility] Address [address] [place] [address] Care Team Providers Care Halftone Operator Name Role Phone Marcio Carranza MD Primary Care Provider Unav ailable Encounter Details Date Type Department Care Team (Late st Contact Info) Description 05/30/2023 Lab Requisition [facility] Pathology & Laboratory Medicine - [address] [phone] Outr Resulting Lab, Provider Social History Tobacco [...] IGA <1.2 <4.0 U/mL 06/02/2023 11:[address] [facility] Comment: A negative result may be due to IgA deficiency and does not rule out celiac disease. ? Negative: ??<4.0 U/mL ? Weak Positive: ??4.0 - 10.0 U/mL ? Positive: ??>10.0 U/mL Results were obtained with the [employer] QUANTA Lite R h-tTG IgA CASE assay on the RRsat DSX. Blood VENOUS BLOOD / Unknown 05/30/2023 14:40 EDT 05/30/2023 21:40 EDT us Provider Outr Resulting Lab IMMUNOLOGY AND SEROL OGY ORDERABLES Final Result [facility] [address] [place] [address] documented in this encounter Visit Diagnoses Not on filedocumented in this encounter Care Teams Halftone Operator Relationship Specialty Start Date End Date Marcio Carranza MD PCP - General 07/26/15 documented as of this encounter
--- OUTSIDE RECORDS SUMMARY | 2024-10-04 16:12 | XMS_ITS | Encounter Summary ---
Author Organization [facility] Address [address] [place] [address] Care Team Providers Care Insurance Operations Rep Name Role Phone Unavailable Primary Care Provider Unavailabl e Encounter Details Date Type Department Care Team (Late st Contact Info) Description 04/14/2014 Results Only [facility] [phone] Demetris Rubin, BATTERY CONTAINER FINISHING HAND [address] [place], [place] [phone] Social History Tobacco Use Types Packs/Day Years [...] ? KIM PEREZ ? Accession #: ? [id number] ? : ? 1960 (Age: 54) ??F ?Collect Date: ? 04/14/2014 ? Location: ? [facility] ? Receive Date: ? 04/18/2014 ? Provider: DEMETRIS RUBIN BATTERY CONTAINER FINISHING HAND Copy to: ? Final Report SPECIMEN ADEQUACY [...] types 16,18,31,33,35, 39,45,51,52,56,58, 59,66, and 68 by clerical car checker mediated amplification. Comments Document reviewed and electronically signed by: ? System Interface ? Report date: 04/22/2014 By the signature above, the attending physician certifies that he/she has personally conducted a gross and/or microscopic examination of the described specimens and rendered or confirmed the above diagnosis. End of Report [facility] 04/14/2014 04/18/2014 us Demetris Rubin BATTERY CONTAINER FINISHING HAND PATHOLOGY ORDERABLES Soo parker Result N[facility] [address] [place] [address] documented in this encounter Visit Diagnoses Not on filedocumented in this encounter
--- OUTSIDE RECORDS SUMMARY | 2024-10-04 16:12 | XMS_ITS | Encounter Summary ---
Author Organization [facility] Address [address] [place] [address] Care Team Providers Care Copier Technician Name Role Phone Marcio Carranza MD Primary Care Provider Unav ailable Encounter Details Date Type Department Care Team (Late st Contact Info) Description 06/27/2023 Lab Requisition [facility] Pathology & Laboratory Medicine - [address] [phone] Outr Resulting Lab, Provider Social History Tobacco [...] IGA <1.2 <4.0 U/mL 07/01/2023 13:06 EDT [facility] Comment: A negative result may be due to IgA deficiency and does not rule out celiac disease. ? Negative: ??<4.0 U/mL ? Weak Positive: ??4.0 - 10.0 U/mL ? Positive: ??>10.0 U/mL Results were obtained with the [employer] QUANTA Lite R h-tTG IgA CASE assay on the [employer] DSX. Blood VENOUS BLOOD / Unknown 06/27/2023 14:40 EDT 06/27/2023 21:30 EDT us Provider Outr Resulting Lab IMMUNOLOGY AND SEROL OGY ORDERABLES Final Result [facility] [address] [place] [address] documented in this encounter Visit Diagnoses Not on filedocumented in this encounter Care Teams Copier Technician Relationship Specialty Start Date End Date Marcio Carranza MD PCP - General 07/26/15 documented as of this encounter
--- OUTSIDE RECORDS SUMMARY | 2024-10-04 16:12 | XMS_ITS | Encounter Summary ---
Author Organization [facility] Address [address] [place] [address] Care Team Providers Care Tube Wrapper Name Role Phone Marcio Carranza MD Primary Care Provider Unav ailable Encounter Details Date Type Department Care Team (Late st Contact Info) Description 05/16/2023 Lab Requisition [facility] Pathology & Laboratory Medicine - [address] [phone] Outr Resulting Lab, Provider Social History Tobacco [...] 85 - 499 mg/dL 05/19/2023 10:37 EDT [facility] Blood VENOUS BLOOD / Unknown 05/16/2023 14:30 EDT 05/16/2023 20:54 EDT us Provider Outr Resulting Lab CHEMISTRY & BLOOD GA S ORDERABLES Final Result [facility] [address] [place] [address] documented in this encounter Visit Diagnoses Not on filedocumented in this encounter Care Teams Tube Wrapper Relationship Specialty Start Date End Date Marcio Carranza MD PCP - General 07/26/15 documented as of this encounter
--- OUTSIDE RECORDS SUMMARY | 2024-10-04 16:12 | XMS_ITS | Encounter Summary ---
Author Organization [facility] Address [address] [place] [address] Care Team Providers Care Upholsterer Apprentice Name Role Phone Unavailable Primary Care Provider Unavailabl e Encounter Details Date Type Department Care Team (Late st Contact Info) Description 03/06/2011 Results Only [facility] [phone] Demetris Rubin, RADIO BOARD OPERATOR ANNOUNCER [address] [place], [place] [id number] Social History Tobacco Use Types Packs/Day Years [...] ng unformatted reports. ? Name: ? KIM PEREZ ? Accession #: ? [id number] ? : ? 1960 (Age: 50) ??F ?Collect Date: ? 03/06/2011 ? Location: ? [facility] ? Receive Date: ? 03/08/2011 ? Provider: ?DEMETRIS RUBIN RADIO BOARD OPERATOR ANNOUNCER ? Copy to: ? Specimen/Source: ?Pap Test, Cervix, ThinPrep Imaging System with manual ?? evaluation ? Last Menstrual Period: ? Nov. 2009 ? SPECIMEN ADEQUACY ? Satisfactory for Evaluation ? - transformation zone component present ? GENERAL CATEGORIZATION ? Negative for Intraepithelial Lesion or Malignancy ? Document reviewed and electronically signed by: ? Jenifer Tamez CT(ASCP) ? Report Date: ??03/11/2011 11:23 ? End of Report ? [facility] 03/06/2011 03/08/2011 us Demetris Ruibn RADIO BOARD OPERATOR ANNOUNCER PATHOLOGY ORDERABLES Soo parker Result [facility] [address] [place] [address] documented in this encounter Visit Diagnoses Not on filedocumented in this encounter
--- OUTSIDE RECORDS SUMMARY | 2024-10-04 16:12 | XMS_ITS | Encounter Summary ---
Author Organization [facility] Address [address] [place] [address] Care Team Providers Care Supervisor Cabinetmaker Name Role Phone Marcio Carranza MD Primary Care Provider Unav ailable Encounter Details Date Type Department Care Team (Late st Contact Info) Description 04/04/2021 Lab Requisition [facility] Pathology & Laboratory Medicine - [address] [phone] Outr Resulting Lab, Provider Social History Tobacco [...] 4th Generation Negative Negative 04/05/2021 9:48 EDT [facility] Comment: If acute HIV-1 infection is suspected in a high risk ??patient, submit plasma specimen for HIV-1 RNA quantitation test. Fourth Generation assay performed on the Siemens Wisairaur. Blood VENOUS BLOOD / Unknown 04/04/2021 14:07 EDT 04/04/2021 21:08 EDT us Provider Outr Resulting Lab IMMUNOLOGY AND SEROL OGY ORDERABLES Final Result [facility] [address] [place] [address] documented in this encounter Visit Diagnoses Not on filedocumented in this encounter Care Teams Supervisor Cabinetmaker Relationship Specialty Start Date End Date Marcio Carranza MD PCP - General 07/26/15 documented as of this encounter
--- OUTSIDE RECORDS SUMMARY | 2024-10-04 16:12 | XMS_ITS | Encounter Summary ---
Author Organization [facility] Address [address] [place] [address] Care Team Providers Care Gunner Mate Name Role Phone Marcio Carranza MD Primary Care Provider Unav ailable Encounter Details Date Type Department Care Team ([facility] st Contact Info) Description 06/27/2017 Results Only [facility]- PRISM [phone] Evan Miller MD [address] [place] [address] Social History Tobacco Use Types Packs/Day Years [...] ? KIM PEREZ ? Accession #: ? [id number] ? : ? 1960 (Age: 57) ??F [...] reviewed and electronically signed by: ? Jenifer Tamez, [place](ASCP) ? Report ??Date: 07/08/2017 15:00 HPV with Pap Test ? Date Ordered: ? 07/08/2017 ? Status: ?? Signed Out ?Date Complete: ? 07/09/2017 ? By: ??System Interface ? Date Reported: ? 07/09/2017 ? Interpretation RESULT: Negative for HPV. No E6 or E7 mRNA is detected from HPV types 16,18,31,33,35, 39,45,51,52,56,58, 59,66, and 68 by guide visitor mediated amplification. Comments Document reviewed and electronically signed by: ? System Interface ? Report date: 07/09/2017 By the signature above, the attending physician certifies that he/she has personally conducted a gross and/or microscopic examination of the described specimens and rendered or confirmed the above diagnosis. End of Report [facility] 06/27/2017 07/01/2017 us Evan Miller MD PATHOLOGY ORDERABLES Final Resul t [facility] [address] [place] [address] documented in this encounter Visit Diagnoses Not on filedocumented in this encounter Care Teams Gunner Mate Relationship Specialty Start Date End Date Marcio Carranza MD PCP - General 07/26/15 documented as of this encounter
--- OUTSIDE RECORDS SUMMARY | 2024-10-04 16:12 | XMS_ITS | Encounter Summary ---
Author Organization [facility] Address [address] [place] [address] Care Team Providers Care Naval Aircrewman Helicopter Name Role Phone Marcio Carranza MD Primary Care Provider Unav ailable Encounter Details Date Type Department Care Team (Late st Contact Info) Description 05/30/2023 Lab Requisition [facility] Pathology & Laboratory Medicine - [address] [phone] Outr Resulting Lab, Provider Social History Tobacco [...] 85 - 499 mg/dL 06/02/2023 10:49 EDT [facility] Blood VENOUS BLOOD / Unknown 05/30/2023 14:40 EDT 05/30/2023 21:40 EDT us Provider Outr Resulting Lab CHEMISTRY & BLOOD GA S ORDERABLES Final Result [facility] [address] [place] [address] documented in this encounter Visit Diagnoses Not on filedocumented in this encounter Care Teams Naval Aircrewman Helicopter Relationship Specialty Start Date End Date Marcio Carranza MD PCP - General 07/26/15 documented as of this encounter
--- OUTSIDE RECORDS SUMMARY | 2024-10-04 16:12 | XMS_ITS | Encounter Summary ---
Author Organization [facility] [address] Care Team Providers Care Potline Monitor Name Role Phone Marcio Devlin DO Primary Care Provider Encounter Details Date Type Department Care Team (Late st Contact Info) Description 04/04/2010 Orders [place] [phone] Marc Chan MD Social History Tobacco Use Types Packs/Day Years Used Date Smoking Tobacco: Never Assessed [facility] Utilities Answer Date Recorded In [...] a group home (including now)? No 10/21/2023 IPV Inpatient [...] AM EST Hospital Encounter Non-Invasive [place] [phone] Arrived 11/12/2024 8:00 AM EST Appointment Mammography/[place] [phone] Gabe Fong MD [facility] [address] [place] [address] 11/30/2024 2:30 PM EDT Office Visit Rheumatology at [place] [phone] Gabe Fong MD [facility] [address] [place] [address] 12/07/2024 2:30 PM EDT TH Visit (TeleHealth) [place] [address] Rosemarie Morrow, SKIP [facility] [place] [place] [address] documented as of this encounter Procedures Procedure Name Priority Date/Time Associated Diagnosis Comments SURGICAL PATHOLOGY REPORT Routine 04/04/2010 10:31 AM EDT documented in this encounter Results * Surgical Pathology Report (04/04/2010 10:31 AM EDT) Surgical Pathology Report [id number] ? Location: 4T The signing pathologist has [...] MD PATHOLOGY/CYTOLOGY O RDERABLES Performing Organization Address City/State/[facility] Co de Phone Number TYSHAWN [place] documented in this encounter Visit Diagnoses Not on filedocumented in this encounter Care Teams Potline Monitor Relationship Specialty Start Date End Date Marcio Devlin DO [address] [place] [address] PCP - General Family Medicine 11/11/17 documented as of this encounter
--- OUTSIDE RECORDS SUMMARY | 2024-10-04 16:12 | XMS_ITS | Encounter Summary ---
Author Organization [facility] Address [address] [place] [address] Care Team Providers Care Engineer Sergeant Name Role Phone Marcio Carranza MD Primary Care Provider Unav ailable Encounter Details Date Type Department Care Team (Late st Contact Info) Description 04/05/2021 Lab Requisition [facility] Pathology & Laboratory Medicine - [address] [phone] Outr Resulting Lab, Provider Social History Tobacco [...] QUANTIFERON TB GOLD PLUS (04/04/2021 14:07 EDT) [facility] Quantiferon Interpretation Negative Negative 04/06/2021 13:32 EDT [facility] Comment: No interferon-gamma response to [...] 0.02 IU/ml 04/06/20 13:32 EDT [facility] TB2 Ag minus Nil 0.06 IU/mL 04/06/20 13:32 EDT [facility] Blood VENOUS BLOOD / Unknown 04/04/2021 14:07 EDT 04/05/2021 15:50 EDT Narrative [facility] - 04/06/2021 13:32 EDT Results were obtained with the Qiagen QuantiFERON-TB Gold Plus CASE. us Provider Outr Resulting Lab CHEMISTRY & BLOOD GA S ORDERABLES Final Result Performing Organization Address City/State/[facility] Co de Phone Number [facility] [address] [place] [address] documented in this encounter Visit Diagnoses Not on filedocumented in this encounter Care Teams Engineer Sergeant Relationship Specialty Start Date End Date Marcio Carranza MD PCP - General 07/26/15 documented as of this encounter
--- OUTSIDE RECORDS SUMMARY | 2024-10-04 16:12 | XMS_ITS | Encounter Summary ---
Author Organization [facility] Address [address] [place] [address] Care Team Providers Care Clip Riveter Name Role Phone Unavailable Primary Care Provider Unavailabl e Encounter Details Date Type Department Care Team (Late st Contact Info) Description 12/29/2000 Results Only [facility] - Maple conversion [address] [place] [address] Clarita Witt, KIM Social History Tobacco Use [...] ? KIM PEREZ ? Accession #: ? [id number] : ? 1960 (Age: 40) ??F ?Collect Date: ? 12/29/2000 Location: ? [facility] ? Receive Date: ? 12/31/2000 Provider: ?CLARITA WITT MEDIA LAW FACULTY MEMBER Copy to: ? Specimen/Source: ?ThinPrep Pap Test, Cervix/Endocervix Last Menstrual Period: ? 12/08/00 ? SPECIMEN ADEQUACY ? Satisfactory for evaluation. GENERAL CATEGORIZATION ? Within Normal Limits ? Document reviewed and electronically signed by: ? Torri Turner, SCT(ASCP) ? Report Date: ??01/01/2001 14:31 End of Report [facility] 12/29/2000 12/31/2000 us Clarita Witt NP PATHOLOGY ORDERABLES Final Re sult [facility] [address] [place] [address] documented in this encounter Visit Diagnoses Not on filedocumented in this encounter
--- OUTSIDE RECORDS SUMMARY | 2024-10-04 16:12 | XMS_ITS ---
Author Organization [facility] [place] [address] Care Team Providers Care Public Housing Manager Name Role Phone Marcio Devlin DO Primary Care Provider [phone] Rheumatology Status:Ineligible (Enrolling) Start date:04/29/2024 Enrollment reason:Ineligible - Insurance Mandate Current support & services provided:Benefits Investigation, Prior Authorization Management Linked medications:upadacitinib (Active) Linked problems:Ankylosing spondylitis (Active) Overview PA on file through 10/07/24. Mandated to fill with [facility]. Continued Care and Services Coordination
--- OUTSIDE RECORDS SUMMARY | 2024-10-04 16:12 | XMS_ITS | Encounter Summary ---
Author Organization [facility] Address [address] [place] [address] Care Team Providers Care Massage Therapy Instructor Name Role Phone Marcio Carranza MD Primary Care Provider Unav ailable Encounter Details Date Type Department Care Team (Late st Contact Info) Description 06/27/2023 Lab Requisition [facility] Pathology & Laboratory Medicine - [address] [phone] Outr Resulting Lab, Provider Social History Tobacco [...] 85 - 499 mg/dL 06/30/2023 11:11 EDT [facility] Blood VENOUS BLOOD / Unknown 06/27/2023 14:40 EDT 06/27/2023 21:25 EDT us Provider Outr Resulting Lab CHEMISTRY & BLOOD GA S ORDERABLES Final Result [facility] [address] [place] [address] documented in this encounter Visit Diagnoses Not on filedocumented in this encounter Care Teams Massage Therapy Instructor Relationship Specialty Start Date End Date Marcio Carranza MD PCP - General 07/26/15 documented as of this encounter
--- OUTSIDE RECORDS SUMMARY | 2024-10-04 16:12 | XMS_ITS | Encounter Summary ---
Author Organization [facility] [place] [address] Care Team Providers Care Strip Tank Tender Name Role Phone Marcio Devlin DO Primary Care Provider Encounter Details Date Type Department Care Team (Late st Contact Info) Description 03/17/2006 Orders [place] [phone] Amandeep Miles Jr., MD Social History Tobacco Use Types Packs/Day Years Used Date Smoking Tobacco: Never Assessed [facility] Utilities Answer Date Recorded In [...] EST Hospital Encounter Non-Invasive [place] [phone] Arrived 11/12/2024 8:00 AM EST Appointment Mammography/[place] [phone] Gabe Fong MD [facility] [address] [place] [address] 11/30/2024 2:30 PM EDT Office [place] [phone] Gabe Fong MD [facility] [address] [address] [place] [address] 12/07/2024 2:30 PM EDT TH Visit (TeleHealth) [place] [address] Rosemarie Morrow, SKIP [facility] [place] [place] [address] documented as of this encounter Procedures Procedure Name Priority Date/Time Associated Diagnosis Comments SURGICAL PATHOLOGY REPORT Routine 03/17/2006 2:36 PM EDT documented in this encounter Results * Surgical Pathology Report (03/17/2006 2:36 PM EDT) Surgical Pathology Report - ? Location: [facility]; [facility]; B The signing pathologist has (i) examined [...] in rendering the final pathologic diagnosis. [facility] 03/17/2006 2:36 PM EDT Amandeep [place] Jr., MD PATHOLOGY/CYTOLOG Y ORDERABLES Performing Organization Address City/State[facility] [place] Phone Number [facility] documented in this encounter Visit Diagnoses Not on filedocumented in this encounter Care Teams Strip Tank Tender Relationship Specialty Start Date End Date Marcio Devlin DO [address] [place] [address] PCP - General Family Medicine 11/11/17 documented as of this encounter
--- OUTSIDE RECORDS SUMMARY | 2024-10-04 16:12 | XMS_ITS | Encounter Summary ---
Author Organization [facility] Address [address] [place] [address] Care Team Providers Care Assistant Import Manager Name Role Phone Marcio Carranza MD Primary Care Provider Unav ailable Encounter Details Date Type Department Care Team (Late st Contact Info) Description 02/03/2021 Lab Requisition [facility] Pathology & Laboratory Medicine - [address] [phone] Outr Resulting Lab, Provider Social History Tobacco [...] QUANTIFERON TB GOLD PLUS (02/02/2021 14:45 EDT) [facility] Quantiferon Interpretation Negative Negative 02/07/2021 13:59 EDT [facility] Comment: No interferon-gamma response to [...] minus Nil 0.02 IU/ml 02/08/20 13:59 EDT [facility] TB2 Ag minus Nil 0.09 IU/mL 02/08/20 13:59 EDT [facility] Blood VENOUS BLOOD / Unknown 02/02/2021 14:45 EDT 02/03/2021 21:37 EDT Narrative [facility] - 02/07/2021 13:59 EDT Results were obtained with the Qiagen QuantiFERON-TB Gold Plus CASE. us Provider Outr Resulting Lab CHEMISTRY & BLOOD GA S ORDERABLES Final Result Performing Organization Address City/State/[facility] Co de Phone Number [facility] [address] [place] [address] documented in this encounter Visit Diagnoses Not on filedocumented in this encounter Care Teams Assistant Import Manager Relationship Specialty Start Date End Date Marcio Carranza MD PCP - General 07/26/15 documented as of this encounter
--- OUTSIDE RECORDS SUMMARY | 2024-10-04 16:12 | XMS_ITS | Referral Summary ---
Author Organization [facility] Address [address] [place] [address] Care Team Providers Care Route Process Administrator Name Role Phone Marcio Carranza MD Primary Care Provider Unav ailable Social History Tobacco Use Types Packs/Day Years Used Date Smoking Tobacco: Never Assessed Comments Unknown Sex and Gender Information Value Date Recorded Sex Assigned at Not on file Legal Sex Female 18:13 EST Gender Identity Not on file Sexual Orientation Not on file Plan of Treatment Not on file Care Teams Route Process Administrator Relationship Specialty Start Date End Date Marcio Carranza MD PCP - General 07/26/15
--- OUTSIDE RECORDS SUMMARY | 2024-10-04 16:12 | XMS_ITS | Encounter Summary ---
Author Organization [facility] Address [address] [place] [address] Care Team Providers Care Embossing Unit Operator Name Role Phone Unavailable Primary Care Provider Unavailabl e Encounter Details Date Type Department Care Team (Late st Contact Info) Description 09/19/2008 Before PRISM Converted Visit (Maple) [facility] - Maple conversion [address] [place] [address] Jeyson Bryant MD [address] [place] [address] Social History Tobacco Use Types Packs/Day Years [...] colitis ? Gross Description: ? Received in Hollande's fixative labelled Ana and bx terminal ? ileum are two biopsies measuring 0.3 x 0.2 x 0.2 cm and 0.3 x 0.3 x 0.2 cm. ? The specimens are submitted intact as (A). ? Received in Hollande's fixative labelled Ana and bx cecum are two ? biopsies measuring 0.3 x 0.2 x 0.2 cm and 0.4 x 0.4 x 0.2 cm. ??The specimens are submitted intact as (B). ? Received in Hollande's fixative labelled Ana and bx transverse colon are six biopsies which vary in size from 0.3 x 0.2 x 0.2 cm up to 0.5 x 0.3 x ?? 0.2 cm. ??The specimens are submitted intact as (C1) and (C2). ? Received in Beulahe's fixative labelled Ana and bx descending colon are three biopsies which vary in size from 0.2 x 0.2 x 0 .2 cm up to 0.3 x 0.2 x 0.1cm. ??The specimens are submitted intact as (D). ? [facility] fixative labelled Ana and bx sigmoid polyp are three biopsies which vary in size from 0.3 x 0.2 x 0.1 cm up to 0.4 x 0.3 x 0.2 cm. ??The specimens are submitted intact as (E). ? Received in [facility]'s fixative labelled Ana and sigmoid colon bx [...] [facility] 09/19/2008 09/19/2008 8:4 2 EST us Jeyson Bryant MD PATHOLOGY ORDERABLES Final Result [facility] [address] [place] [address] documented in this encounter Visit Diagnoses Not on filedocumented in this encounter
--- OUTSIDE RECORDS SUMMARY | 2024-10-04 16:12 | XMS_ITS | Encounter Summary ---
Author Organization [facility] Address [address] [place] [address] Care Team Providers Care Nuclear Medicine Technician Name Role Phone Marcio Carranza MD Primary Care Provider Unav ailable Encounter Details Date Type Department Care Team (Late st Contact Info) Description 08/02/2021 Lab Requisition [facility] Pathology & Laboratory Medicine - [address] [phone] Outr Resulting Lab, Provider Social History Tobacco [...] Ab, Total Negative Negative 08/03/2021 10:[address] [facility] Blood VENOUS BLOOD / Unknown 08/02/2021 15:15 EST 08/02/2021 21:06 EST us Provider Outr Resulting Lab CHEMISTRY & BLOOD GA S ORDERABLES Final Result [facility] [address] [place] [address] documented in this encounter Visit Diagnoses Not on filedocumented in this encounter Care Teams Nuclear Medicine Technician Relationship Specialty Start Date End Date Marcio Carranza MD PCP - General 07/26/15 documented as of this encounter
--- OUTSIDE RECORDS SUMMARY | 2024-10-04 16:12 | XMS_ITS | Encounter Summary ---
Author Organization [facility] Address [address] [place] [address] Care Team Providers Care Bologna Maker Name Role Phone Marcio Carranza MD Primary Care Provider Unav ailable Encounter Details Date Type Department Care Team (Late st Contact Info) Description 05/03/2020 Lab Requisition [facility] Pathology & Laboratory Medicine - [address] [address] Outr Resulting Lab, Provider Social History Tobacco [...] 19 - 88 pg/mL 05/04/2020 10:[address] [facility] Blood VENOUS BLOOD / Unknown 05/03/2020 8:30 EDT 05/03/2020 16:07 EDT us Provider Outr Resulting Lab CHEMISTRY & BLOOD GA S ORDERABLES Final Result [facility] [address] [place] [address] documented in this encounter Visit Diagnoses Not on filedocumented in this encounter Care Teams Bologna Maker Relationship Specialty Start Date End Date Marcio Carranza MD PCP - General 07/26/15 documented as of this encounter
--- OUTSIDE RECORDS SUMMARY | 2024-10-04 16:12 | XMS_ITS | Encounter Summary ---
Author Organization [facility] Address [address] [place] [address] Care Team Providers Care Knitting Inspector Name Role Phone Marcio Carranza MD Primary Care Provider Unav ailable Encounter Details Date Type Department Care Team (Late st Contact Info) Description 06/13/2023 Lab Requisition [facility] Pathology & Laboratory Medicine - [address] [phone] Outr Resulting Lab, Provider Social History Tobacco [...] IGA <1.2 <4.0 U/mL 06/16/2023 12:[address] [facility] Comment: A negative result may be due to IgA deficiency and does not rule out celiac disease. ? Negative: ??<4.0 U/mL ? Weak Positive: ??4.0 - 10.0 U/mL ? Positive: ??>10.0 U/mL Results were obtained with the Latio QUANTA Lite R h-tTG IgA CASE assay on the TroopSwap DSX. Blood VENOUS BLOOD / Unknown 06/13/2023 14:35 EDT 06/13/2023 21:18 EDT us Provider Outr Resulting Lab IMMUNOLOGY AND SEROL OGY ORDERABLES Final Result [facility] [address] [place] [address] documented in this encounter Visit Diagnoses Not on filedocumented in this encounter Care Teams Knitting Inspector Relationship Specialty Start Date End Date Marcio Carranza MD PCP - General 07/26/15 documented as of this encounter
--- NOTE | 2024-10-04 16:15 | DI.RAD_ITS ---
Exam(s) XR PORTABLE CHEST AP EXAM: XR PORTABLE CHEST AP CLINICAL HISTORY: sob TECHNIQUE: 2D digital imaging was performed. COMPARISON: CR XR PORTABLE CHEST AP from 12/20/2021 CR,XR XR PORTABLE CHEST AP from 10/20/2023 FINDINGS: LUNGS: Clear. No pleural abnormality seen. HEART: Normal size. Pacemaker. AORTA: Normal diameter. BONES: Unremarkable for age. Soft tissues: Unremarkable. IMPRESSION: No acute findings. DATA REPOSITORY: RADIATION DOSE DELIVERED:
[2024-10-04 16:38] LABS: COVID-19 PCR Negative (Negative); Influenza A PCR Negative (Negative); Influenza B PCR Negative (Negative); RSV PCR Negative (Negative); Source NASOPHARYNX
[2024-10-04] MEDS: Albuterol/Ipratropium 3 ML UPD VIAL ×2 (16:43→18:16)
[2024-10-04] MEDS: methylPREDNISolone SUCC 125 MG VIAL IVP (16:44)
[2024-10-04 17:34] LABS: Abs Immature Grans 0.02 10^3/uL (0.0-0.06); Absolute Basophil Count 0.04 10^3/uL (0.0-0.2); Absolute Eosinophil Count 0.07 10^3/uL (0.0-0.7); Absolute Lymphocyte Count 1.77 10^3/uL (1.2-3.4); Absolute Monocyte Count 0.82 10^3/uL (0.1-0.8); Absolute Neutrophil Count 2.61 10^3/uL (1.2-6.7); Basophils % 0.8 %; Eosinophils % 1.3 %; HCT 44.9 % (36.0-46.0); HGB 14.8 g/dL (11.2-15.7); Immature Grans % 0.4 %; Lymphocytes % 33.2 %; MCV 91 fL (80-95); MPV 10.4 fL (8.0-11.0); Monocytes % 15.4 %; Neutrophils % 48.9 %; Platelet Count 249 10^3/uL (130-400); RBC 4.93 10^6/uL (3.93-5.22); RDW 13.8 % (11.7-14.6); WBC 5.33 10^3/uL (4.4-10.8)
[2024-10-04 18:15] LABS: ALT 34 U/L (14-59); AST 27 U/L (15-37); Albumin 3.7 g/dL (3.4-5.0); Alkaline Phosphatase 158 U/L (46-116); Anion Gap 13.7 mmol/L (3-11); BUN 15 mg/dL (7-18); Bilirubin, Total 0.39 mg/dL (0.2-1.0); CO2 22.3 mmol/L (21.0-32.0); CREATININE 1.2 mg/dL (0.55-1.02); Calcium 9.8 mg/dL (8.5-10.1); Chloride 108 mmol/L (98-107); Estimated GFR 50.86 (mL/min/1.73m2); Glucose 129 mg/dL (74-106); NT-proBNP 85 pg/mL (<300); Potassium 3.8 mmol/L (3.5-5.1); Sodium 144 mmol/L (136-145); Total Protein 8.4 g/dL (6.4-8.2)
--- NOTE | 2024-10-04 22:27 | W.ED.GENAD ---
Discharge Plan Disposition Patient Disposition: Home Condition: Stable Discharge Details Clinical Impression: Asthma Primary Care Provider: Marcio Devlin ED Provider: James Gleason Home Meds and New Rx's Prescriptions: New prednisone 20 mg tablet 40 mg PO DAILY 4 Days Qty: 8 0RF No Action Fish Oil 340-1,000 mg capsule 1 cap PO BID meclizine 25 mg tablet 25 mg PO BID PRN (Reason: dizziness) Qty: 30 0RF sumatriptan 20 mg/actuation spray,non-aerosol 20 mg intranasal ONCE Rx Instructions: administer into one nostril as a single dose valacyclovir 1 gram tablet 1,000 mg PO TID Qty: 21 0RF gabapentin 300 mg capsule 300 mg PO BID Qty: 20 0RF atorvastatin 40 mg tablet 40 mg PO QHS Qty: 90 3RF multivitamin [Daily Vitamin] 1 EACH tablet 1 ea PO DAILY calcium carbonate-vitamin D3 [Calcium 500 With D] 1 EACH tablet 2 ea PO DAILY ascorbic acid (vitamin C) 1,000 MG tablet 1,000 mg PO DAILY cholecalciferol (vitamin D3) [Vitamin D3] 125 mcg (5,000 unit) tablet 5,000 unit PO DAILY Patient Comments: [facility] magnesium oxide 200 mg magnesium tablet 200 mg PO BID clindamycin phosphate 1 % lotion 1 applic topical BID Rx Instructions: x10 days to abdomen fexofenadine 180 mg tablet 180 mg PO DAILY losartan 100 mg tablet 100 mg PO DAILY Qty: 90 3RF aspirin 81 mg tablet,delayed release (DR/EC) See Rx Instructions .ROUTE .COMPLEX Qty: 90 3RF Dose Instruction: TAKE ONE TABLET BY MOUTH EVERY DAY Rx Instructions: TAKE ONE TABLET BY MOUTH EVERY DAY metformin 500 mg tablet 500 mg PO BID Qty: 180 3RF Rx Instructions: twice daily for abnormal blood sugars; R73.09 topiramate 50 mg tablet See Rx Instructions .ROUTE .COMPLEX Qty: 180 3RF Dose Instruction: TAKE ONE TABLET BY MOUTH TWICE A DAY Rx Instructions: TAKE ONE TABLET BY MOUTH TWICE A DAY folic acid 1 mg tablet See Rx Instructions .ROUTE .COMPLEX Qty: 90 3RF Dose Instruction: TAKE ONE TABLET BY MOUTH EVERY DAY Rx Instructions: TAKE ONE TABLET BY MOUTH EVERY DAY albuterol sulfate [Proventil HFA] 90 mcg/actuation HFA aerosol inhaler 1 puff IH Q6H PRN (Reason: shortness of breath or wheezing) Qty: 18 3RF omeprazole 40 mg capsule,delayed release(DR/EC) 40 mg PO DAILY Qty: 30 11RF Rinvoq 30 mg tablet extended release 24 hr 30 mg PO DAILY amlodipine 10 mg tablet 10 mg PO DAILY Qty: 90 1RF Asmanex HFA 200 mcg/actuation HFA aerosol inhaler 1 puff inhalation DAILY Qty: 13 11RF Discharge Instructions Additional Instructions: Take the additional steroid burst as prescribed, Use your inhaler with spacer 2 to 4 puffs every 4 hours for the next 2 days Follow-up with your PCP or return to the emergency department if you feel like your symptoms are not improving, you develop worsening shortness of breath fever or low oxygen level Stand Alone Forms: Work Release HPI General Date/Time Provider Initiated Documentation: 10/04/24 15:52. Limitations to Documentation: no limitations. Information obtained by: patient. HPI Narrative: 64-year-old female with past medical history of ulcerative colitis, asthma, diabetes presents for evaluation of cough and shortness of breath. Symptoms started yesterday. She has been having some mild URI symptoms for the last 5 days. The shortness of breath has really just been since yesterday. She reports wheezing and a cough. Denies any chest pain. She has been using her inhaler. She denies any fever. She denies any productive cough. Related Data Home Medications ?Medication ?Instructions ?Recorded ?Confirmed ascorbic acid (vitamin C) 1,000 mg 1,000 mg PO DAILY 12/24/12 10/04/24 tablet calcium 500 mg (as 2 ea PO DAILY 12/24/12 10/04/24 carbonate)-vitamin D3 10 mcg (400 unit) tablet (Calcium 500 With D) multivitamin (Daily Vitamin tablet) 1 ea PO DAILY 12/24/12 10/04/24 cholecalciferol (vitamin D3) 125 5,000 unit PO DAILY 06/13/20 10/04/24 mcg (5,000 unit) tablet (Vitamin D3) omega-3 fatty acids-fish oil 340 1 cap PO BID 12/25/21 10/04/24 mg-1,000 mg capsule (Fish Oil) meclizine 25 mg tablet 25 mg PO BID PRN dizziness #30 tabs 01/24/22 10/04/24 clindamycin phosphate 1 % lotion 1 applic topical BID 10/23/23 10/04/24 fexofenadine 180 mg tablet 180 mg PO DAILY 10/23/23 10/04/24 magnesium oxide 200 mg PO BID 10/23/23 10/04/24 losartan 100 mg tablet 100 mg PO DAILY #90 tabs 11/10/23 10/04/24 aspirin 81 mg tablet,delayed See Rx Instructions .Route 11/24/23 10/04/24 release .COMPLEX #90 tabs atorvastatin 40 mg tablet 40 mg PO QHS #90 tabs 11/24/23 10/04/24 metformin 500 mg tablet 500 mg PO BID #180 tab-caps 12/09/23 10/04/24 folic acid 1 mg tablet See Rx Instructions .Route 02/19/24 10/04/24 .COMPLEX #90 tabs topiramate 50 mg tablet See Rx Instructions .Route 02/19/24 10/04/24 .COMPLEX #180 tabs sumatriptan 20 mg/actuation nasal 20 mg intranasal ONCE 04/15/24 10/04/24 spray albuterol sulfate 90 mcg/actuation 1 puff inhalation Q6H PRN 04/16/24 10/04/24 aerosol inhaler (Proventil HFA) shortness of breath or wheezing #18 grams omeprazole 40 mg capsule,delayed 40 mg PO DAILY #30 caps 05/31/24 10/04/24 release upadacitinib 30 mg tablet,extended 30 mg PO DAILY IBD 06/17/24 10/04/24 release 24 hr (Rinvoq) amlodipine 10 mg tablet 10 mg PO DAILY #90 tabs 06/29/24 10/04/24 mometasone 200 mcg/actuation HFA 1 puff inhalation DAILY #13 grams 07/01/24 10/04/24 aerosol inhaler (Asmanex HFA) gabapentin 300 mg capsule 300 mg PO BID #20 caps 09/01/24 10/04/24 valacyclovir 1 gram tablet 1,000 mg PO TID #21 tabs 09/01/24 10/04/24 prednisone 20 mg tablet 40 mg (2 x 20 mg) PO DAILY 4 days 10/04/24 #8 tabs Previous Rx's ?Medication ?Instructions ?Recorded meclizine 25 mg tablet 25 mg PO BID PRN dizziness #30 tabs 01/24/22 losartan 100 mg tablet 100 mg PO DAILY #90 tabs 11/10/23 aspirin 81 mg tablet,delayed See Rx Instructions .Route 11/24/23 release .COMPLEX #90 tabs atorvastatin 40 mg tablet 40 mg PO QHS #90 tabs 11/24/23 metformin 500 mg tablet 500 mg PO BID #180 tab-caps 12/09/23 folic acid 1 mg tablet See Rx Instructions .Route 02/19/24 .COMPLEX #90 tabs topiramate 50 mg tablet See Rx Instructions .Route 02/19/24 .COMPLEX #180 tabs albuterol sulfate 90 mcg/actuation 1 puff inhalation Q6H PRN 04/16/24 aerosol inhaler (Proventil HFA) shortness of breath or wheezing #18 grams omeprazole 40 mg capsule,delayed 40 mg PO DAILY #30 caps 05/31/24 release amlodipine 10 mg tablet 10 mg PO DAILY #90 tabs 06/29/24 mometasone 200 mcg/actuation HFA 1 puff inhalation DAILY #13 grams 07/01/24 aerosol inhaler (Asmanex HFA) gabapentin 300 mg capsule 300 mg PO BID #20 caps 09/01/24 valacyclovir 1 gram tablet 1,000 mg PO TID #21 tabs 09/01/24 prednisone 20 mg tablet 40 mg (2 x 20 mg) PO DAILY 4 days 10/04/24 #8 tabs Allergies Allergy/AdvReac Type Severity Reaction Status Date / Time celecoxib (From Celebrex) Allergy Intermediate rash Verified 10/04/24 15:45 etodolac Allergy Intermediate itching Verified 10/04/24 15:45 iodine AdvReac Severe swollen Verified 10/04/24 15:45 tongue amoxicillin trihydrate (From AdvReac Intermediate vomits Verified 10/04/24 15:45 Augmentin) doxycycline AdvReac Intermediate VOMITS Verified 10/04/24 15:45 ibuprofen AdvReac Intermediate CHEST PAIN Verified 10/04/24 15:45 potassium clavulanate (From AdvReac Intermediate vomits Verified 10/04/24 15:45 Augmentin) cephalexin AdvReac Mild VOMITS Verified 10/04/24 15:45 General Stated Complaint: SOB NIKOLAS: 3 Exam Narrative Exam Narrative: Review of Systems: All systems reviewed & are unremarkable except as noted in HPI and below Well-developed, no acute distress NCAT Bilateral TMs unremarkable, Posterior oropharynx without tonsillar enlargement or exudate No significant cervical adenopathy No murmur RRR Unlabored respiratory effort no hypoxia or significant increased work of breathing, there is wheezing bilaterally Nondistended abdomen Extremities w/o edema Course Vital Signs Vital signs: Vital Signs Temperature 36.6 C 10/04/24 15:46 Pulse 93 H 10/04/24 15:46 Respiratory Rate 24 10/04/24 15:46 Blood Pressure 137/89 10/04/24 15:46 Pulse Oximetry 98 10/04/24 15:46 Temperature 36.6 C 10/04/24 19:41 Temperature Source Oral 10/04/24 16:10 Pulse 90 10/04/24 19:41 Pulse 84 10/04/24 16:50 Respiratory Rate 22 10/04/24 19:41 Respiratory Effort Short of Breath 10/04/24 16:07 Respiratory Depth Shallow 10/04/24 16:07 Respiratory Pattern Normal 10/04/24 16:07 Blood Pressure 150/71 H 10/04/24 19:41 Blood Pressure Mean 99 10/04/24 16:45 Blood Pressure Position Sitting 10/04/24 16:10 Pulse Oximetry 97 10/04/24 19:41 Oxygen Delivery Method Room Air 10/04/24 18:16 Oxygen Flow Rate 0 10/04/24 18:16 Pain Level 0 10/04/24 19:41 Lab/Test Results Lab/Test Results: Laboratory Tests Range/Units 10/04/24 10/04/24 15:55 16:38 WBC (4.4-10.8) 10^3/uL 5.33 RBC (3.93-5.22) 10^6/uL 4.93 Hgb (11.2-15.7) g/dL 14.8 Hct (36.0-46.0) % 44.9 MCV (80-95) fL 91 MCH (27.0-33.0) pg 30.0 MCHC (32.0-36.0) % 33.0 RDW (11.7-14.6) % 13.8 Plt Count (130-400) 10^3/uL 249 MPV (8.0-11.0) fL 10.4 Immature Gran % % 0.4 Neutrophils % % 48.9 Lymphocytes % % 33.2 Monocytes % % 15.4 Eosinophils % % 1.3 Basophils % % 0.8 Nucleated RBC % (0.0-0.3) % 0.0 Absolute Neutrophils (1.2-6.7) 10^3/uL 2.61 Absolute Lymphocytes (1.2-3.4) 10^3/uL 1.77 Absolute Monocytes (0.1-0.8) 10^3/uL 0.82 H Absolute Eosinophils (0.0-0.7) 10^3/uL 0.07 Absolute Basophils (0.0-0.2) 10^3/uL 0.04 Sodium (136-145) mmol/L 144 Potassium (3.5-5.1) mmol/L 3.8 Chloride (98-107) mmol/L 108 H Carbon Dioxide (21.0-32.0) mmol/L 22.3 Anion Gap (3-11) mmol/L 13.7 H BUN (7-18) mg/dL 15 Creatinine (0.55-1.02) mg/dL 1.2 H Est GFR (CKD-EPI 2020) (mL/min/1.73m2) 50.86 Glucose (74-106) mg/dL 129 H Calcium (8.5-10.1) mg/dL 9.8 Total Bilirubin (0.2-1.0) mg/dL 0.39 AST (15-37) U/L 27 ALT (14-59) U/L 34 Alkaline Phosphatase (46-116) U/L 158 H NT-Pro-B Natriuret Pep (<300) pg/mL 85 Total Protein (6.4-8.2) g/dL 8.4 H Albumin (3.4-5.0) g/dL 3.7 COVID-19 Source NASOPHARYNX SARS-CoV-2 (PCR) (Negative) Negative Influenza Type A (PCR) (Negative) Negative Influenza Type B (PCR) (Negative) Negative RSV (PCR) (Negative) Negative Medical Decision Making Emergent evaluation of cough and shortness of breath. Initial differential includes asthma exacerbation, pneumonia, viral illness. Low suspicion for ACS or CHF. EKG was obtained and independently interpreted: Sinus 88 normal axis no STEMI. The patient was noted to have wheezing on examination. She was given IV steroids and bronchodilator treatment. Lab work was obtained, no leukocytosis or anemia. No significant electrolyte derangement. Creatinine is at baseline. Her BNP is not elevated. COVID flu and RSV testing were obtained and this was all negative. A chest x-ray was obtained as well, the chest x-ray does not reveal any acute abnormality or focal consolidation or any signs of volume overload. At this time the patient was monitored and felt better after bronchodilator treatment. I feel she is stable for discharge home with continuation of her bronchodilator every 4 hours. She will be given a steroid burst for the next 4 days. Strict return precautions advised and recommend close follow-up with PCP for any persistent symptoms Quality:SDOH Health Related Social Needs: No Data to Display PFSH All Active Problems Intraductal papillary mucinous neoplasm (Acute) High risk medication use (Acute) Ulcerative colitis, unspecified, without complications (Acute) Ulcerative (chronic) pancolitis without complications (Acute) Metabolic dysfunction-associated steatohepatitis (MASH) (Acute) Ulcerative (chronic) pancolitis with other complication (Acute) Low vitamin D level (Acute) Pain in right foot (Acute) Stress fracture, right foot, initial encounter for fracture (Acute) Foot trauma (Acute) Third degree heart block (Acute) 10/20/2023 - [facility] ED - Dr Lawrence Albert Primary osteoarthritis of both hips (Acute) Arthropathy in ulcerative colitis with complication (Acute) Arthralgia of hands, bilateral (Acute) Chronic bilateral thoracic back pain (Acute) Inflammatory arthropathy (Acute) 12/13/21 [facility] [place] Morning joint stiffness (Acute) 12/13/21 [facility] [place] Chronic midline low back pain without sciatica (Acute) 12/13/21 [facility] Pain in left hip (Acute) 12/03/21 [facility] Neck pain (Acute) 12/13/21 [facility] Trochanteric bursitis, left hip (Acute ~09/2021) Dr Mercado,[facility] Diabetes mellitus (Chronic) Papular eczema (Acute) Folliculitis (Acute) Seborrheic keratoses (Acute) Presence of left artificial hip joint (Chronic) Primary osteoarthritis of right hip (Chronic) Bilateral - 16.0 Urethral caruncle (Acute 08/15/17) Ulcerative enterocolitis (Acute 09/15/93) onset L sided, pancolitis last colon 2010 [facility]; Humira began 04/2009, stopped due to abnl LFT, then restarted 07/2014 RADHA (stress urinary incontinence, female) (Acute 08/15/17) Peripheral venous insufficiency (Acute 08/17/10) Paresthesia (Acute 05/25/13) R lat knee for ~1 yr, ? 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 INTOLERANT Hypomagnesemia (Acute 11/23/09) Hyperlipidemia (Acute 04/15/04) simvastatin begun 2009 by GI [facility] Gastroesophageal reflux disease without esophagitis (Acute 10/26/03) Essential hypertension (Acute 11/13/01) goal <140/80 Disorder of bone and articular cartilage (Acute 07/15/96) OSTEOPENIA Chronic rhinitis (Acute 09/15/00) BMI 34.0-34.9,adult (Acute 08/07/15) Asthma (Acute 06/15/05) [employer] Ankylosing spondylitis (Acute 09/15/90) M45.2 - of cervical region Adalimumab (Humira) long-term use (Acute 09/15/09) HUMIRA adalimumab for colitis and ankylosing spondylitis, Dr Eden Reynoso; Dr Marc Chan (GI) Abnormal blood sugar (Acute 08/07/15) early DM A1c 6.5 08/07/15 Medical History UTI (urinary tract infection) Kidney stones SARS-CoV-2 positive 09/21/20-pt reports she had a positive result from a pcr done at [facility]. given pulse oximeter Dizziness (06/10/08) Closed displaced fracture of proximal phalanx of right little finger with routine healing (06/04/17) Surgical History S/P cardiac pacemaker procedure Placed 10/21/2023 by [facility].[employer] L 311 serial [id number] L sided dual-chamber permanent pacemaker for complete heart block H/O colonoscopy 12/19/20 colonoscopy per [facility] note from 12/19/20 Vaginal hysterectomy (03/10/18) Colonoscopy w/ Bx (03/04/17) [facility] 09/24/22 09/18/23 Family History Mother Heart disease Hypertension Hepatitis C Father Alcohol abuse Lung cancer Heart disease Sister Heart disease Paternal Aunt Diabetes Social History Smoking/Tobacco Use Status: Never Smoking risk assessment performed?: Yes Alcohol Intake: current Alcohol Intake frequency: holidays/special occasions only Alcohol type: wine Drug use: Never Substance use type: does not use Adopted: No Caregiver/Support person: No Household members: spouse and family Housing: house Number of Children: 1 number of grandchildren: 2 Communication Needs: Corrective Lenses Education Level: high school Do you need help understanding health information?: Never current occupation: works [employer] Pets and animals: No Sexually active: Yes Do you think of yourself as: straight/heterosexual Current gender identity: female What is your relationship status?: How often do you talk on the phone with friends or family?: three or more times per week How often do you get together with friends or relatives?: three or more times per week How often do you attend christianity or jehovah's witness services?: decline to answer Do you belong to any clubs or organized social groups?: no Panel score (0-1 are the most socially isolated patients): 2 What type of physical activity do you participate in: walking and other Details: kayak Duration: 15-30 minutes/day Frequency: 3-4 times per week Bia/Taoist: Religious Special bia needs: No Seatbelt use: always Drive intox or ride w/intox mechanic driver: No Working smoke detector in home: Yes Carbon monox detector in home: Yes Do you feel safe at home: Yes Do you feel safe in your relationship?: Yes
== END 2024-10-04 19:47 | disposition home or self-care (01) ==
PROVIDERS: Emergency Provider Emergency Medicine; PCP Family Medicine
DX: J45.909 Unspecified asthma, uncomplicated (principal); I10 Essential (primary) hypertension; E78.5 Hyperlipidemia, unspecified; E11.9 Type 2 diabetes mellitus without complications; Z79.01 Long term (current) use of anticoagulants; Z79.84 Long term (current) use of oral hypoglycemic drugs; Z79.620 Long term (current) use of immunosuppressive biologic; Z79.82 Long term (current) use of aspirin
CPT/HCPCS: 36415; 80053; 87637; 93005; 96374; 99285; 71045; 83880; 85025; 93010; J2919; J7620

== ENCOUNTER 2024-12-13 01:49 | Outpatient (CLI) | payer OTHER, SELFPAY ==
[2024-12-13 15:29] LABS: Abs Immature Grans 0.02 10^3/uL (0.0-0.06); Absolute Basophil Count 0.03 10^3/uL (0.0-0.2); Absolute Eosinophil Count 0.04 10^3/uL (0.0-0.7); Absolute Lymphocyte Count 1.84 10^3/uL (1.2-3.4); Absolute Neutrophil Count 2.55 10^3/uL (1.2-6.7); Basophils % 0.6 %; Eosinophils % 0.8 %; HGB 13.4 g/dL (11.2-15.7); Immature Grans % 0.4 %; Lymphocytes % 36.2 %; MCH 30.2 pg (27.0-33.0); MCHC 32.7 % (32.0-36.0); MCV 92 fL (80-95); MPV 9.9 fL (8.0-11.0); Monocytes % 11.8 %; Neutrophils % 50.2 %; Platelet Count 264 10^3/uL (130-400); RBC 4.44 10^6/uL (3.93-5.22); RDW 14.4 % (11.7-14.6); RDW-SD 48.6 fL; WBC 5.08 10^3/uL (4.4-10.8)
[2024-12-13 17:01] LABS: ALT 36 U/L (14-59); AST 25 U/L (15-37); Alkaline Phosphatase 190 U/L (46-116); Bilirubin, Direct 0.1 mg/dL (0.0-0.2); Bilirubin, Total 0.3 mg/dL (0.2-1.0); CREATININE 1.4 mg/dL (0.55-1.02); Estimated GFR 42.27 (mL/min/1.73m2); Total Protein 7.7 g/dL (6.4-8.2)
== END 2024-12-13 01:50 | disposition home or self-care (01) ==
PROVIDERS: PCP Family Medicine; Visit Provider Internal Medicine
DX: Z79.899 Other long term (current) drug therapy (principal); Z51.81 Encounter for therapeutic drug level monitoring; K51.90 Ulcerative colitis, unspecified, without complications; M45.2 Ankylosing spondylitis of cervical region; M16.0 Bilateral primary osteoarthritis of hip; M19.90 Unspecified osteoarthritis, unspecified site; M25.541 Pain in joints of right hand; M25.542 Pain in joints of left hand
CPT/HCPCS: 36415; 80076; 82565; 85025

== ENCOUNTER 2025-01-24 12:04 | Outpatient (REF) | payer OTHER, SELFPAY ==
[2025-01-27 18:01] LABS: Calprotectin 58.6 mcg/g
== END 2025-01-24 12:05 | disposition home or self-care (01) ==
LOC: LBN 12:04
PROVIDERS: PCP Family Medicine; Visit Provider Nurse Practitioner Adult Health
DX: K51.00 Ulcerative (chronic) pancolitis without complications (principal)
CPT/HCPCS: 83993

== ENCOUNTER 2025-01-31 18:28 | Outpatient (REF) | payer OTHER, SELFPAY ==
[2025-02-02 09:05] LABS: Calcium Urine 15.8 mg/dL (See Note); Calcium Urine 24 hr 253 mg/24hr (100-300); Timed Urine Volume 1600 mL
== END 2025-01-31 18:29 | disposition home or self-care (01) ==
LOC: LBN 18:28
PROVIDERS: PCP Family Medicine; Visit Provider Internal Medicine
DX: R79.89 Other specified abnormal findings of blood chemistry (principal)
CPT/HCPCS: 81050; 82340

== ENCOUNTER 2025-05-24 11:34 | Outpatient (CLI) | payer OTHER, SELFPAY ==
[2025-05-24 15:38] LABS: Abs Immature Grans 0.01 10^3/uL (0.0-0.06); ESR 1 mm/hr (0-30); HCT 38.7 % (36.0-46.0); HGB 12.6 g/dL (11.2-15.7); Immature Grans % 0.2 %; MCH 29.9 pg (27.0-33.0); MCHC 32.6 % (32.0-36.0); MCV 92 fL (80-95); MPV 9.9 fL (8.0-11.0); Platelet Count 238 10^3/uL (130-400); RBC 4.22 10^6/uL (3.93-5.22); RDW 14.1 % (11.7-14.6); RDW-SD 47.5 fL; WBC 4.51 10^3/uL (4.4-10.8)
[2025-05-24 16:04] LABS: C-Reactive Protein < 0.50 mg/dL (<or=0.5)
[2025-05-24 16:18] LABS: ALT 46 U/L (14-59); AST 43 U/L (15-37); Albumin 3.9 g/dL (3.4-5.0); Alkaline Phosphatase 152 U/L (46-116); Anion Gap 11.1 mmol/L (3-11); BUN 29 mg/dL (7-18); Bilirubin, Total 0.3 mg/dL (0.2-1.0); CO2 23.9 mmol/L (21.0-32.0); Calcium 9.3 mg/dL (8.5-10.1); Chloride 108 mmol/L (98-107); Estimated GFR 38.67 (mL/min/1.73m2); Glucose 198 mg/dL (74-106); Potassium 4.1 mmol/L (3.5-5.1); Sodium 143 mmol/L (136-145); Total Protein 7.5 g/dL (6.4-8.2)
[2025-05-24 16:37] LABS: ALT 53 U/L (14-59); AST 41 U/L (15-37); Albumin 3.9 g/dL (3.4-5.0); Alkaline Phosphatase 155 U/L (46-116); Bilirubin, Direct 0.1 mg/dL (0.0-0.2); Bilirubin, Total 0.3 mg/dL (0.2-1.0); Total Protein 7.6 g/dL (6.4-8.2); Vitamin D 25 Total 56 ng/mL (30-100)
== END 2025-05-24 11:35 | disposition home or self-care (01) ==
PROVIDERS: PCP Family Medicine; Visit Provider Internal Medicine
DX: R79.89 Other specified abnormal findings of blood chemistry (principal); Z79.899 Other long term (current) drug therapy; Z51.81 Encounter for therapeutic drug level monitoring; K51.90 Ulcerative colitis, unspecified, without complications; M45.2 Ankylosing spondylitis of cervical region; M19.90 Unspecified osteoarthritis, unspecified site; M16.0 Bilateral primary osteoarthritis of hip; M25.541 Pain in joints of right hand; M25.542 Pain in joints of left hand
CPT/HCPCS: 36415; 80053; 80076; 82306; 85652; 82565; 85025; 86140

== ENCOUNTER 2025-05-26 15:02 | Outpatient (REF) | payer OTHER, SELFPAY | END 2025-05-26 15:03 | disposition home or self-care (01) | LOC: LBN 15:02 | PROVIDERS: PCP Family Medicine; Visit Provider Nurse Practitioner Adult Health | DX: K51.00 Ulcerative (chronic) pancolitis without complications (principal) | CPT/HCPCS: 83993 ==

== ENCOUNTER 2025-06-22 09:48 | Emergency (ER) | payer OTHER, SELFPAY ==
--- NOTE | 2025-06-22 09:45 | RT.EKG_ITS ---
APPROVED REPORT Exam: Resting ECG Reason for Exam: SOB Patient Location: E HR:71 bpm ECG Measurements Heart Rate 71 AXIS IA 231 P 43 QRSd 159 QRS 15 QT 445 T 73 QTc 486 Conclusion Atrial-sensed ventricular-paced rhythm...ventricular pacing tracks p-waves I have reviewed and interpreted ECG and agree with software generated interpretation.
[2025-06-22 09:52] VITALS: BP 165/72; PULSE 82; RESP 22; TEMP 36.2; O2SAT 100
[2025-06-22 10:21] LABS: Abs Immature Grans 0.01 10^3/uL (0.0-0.06); HCT 40.0 % (36.0-46.0); HGB 13.2 g/dL (11.2-15.7); Immature Grans % 0.2 %; MCH 29.4 pg (27.0-33.0); MCHC 33.0 % (32.0-36.0); MCV 89 fL (80-95); MPV 10.1 fL (8.0-11.0); Platelet Count 256 10^3/uL (130-400); RBC 4.49 10^6/uL (3.93-5.22); RDW 13.8 % (11.7-14.6); RDW-SD 45.0 fL; WBC 5.16 10^3/uL (4.4-10.8)
--- NOTE | 2025-06-22 10:23 | ED.GENADUL_ITS ---
Discharge Plan Disposition Patient Disposition: Home Condition: Good Discharge Details Clinical Impression: Chest discomfort, Shortness of breath Primary Care Provider: Marcio Devlin ED Provider: Lawrence Albert Home Meds and New Rx's Prescriptions: New lidocaine [Lidoderm] 5 % adhesive patch,medicated 1 patch Topical Q24H Qty: 15 0RF No Action Fish Oil 340-1,000 mg capsule 1 cap PO BID meclizine 25 mg tablet 25 mg PO BID PRN (Reason: dizziness) Qty: 30 0RF sumatriptan 20 mg/actuation spray,non-aerosol 20 mg intranasal ONCE Qty: 6 6RF Rx Instructions: administer into one nostril as a single dose ascorbic acid (vitamin C) 1,000 mg capsule 1 g PO DAILY multivitamin [Daily Vitamin] 1 EACH tablet 1 ea PO DAILY calcium carbonate-vitamin D3 [Calcium 500 With D] 1 EACH tablet 2 ea PO DAILY ascorbic acid (vitamin C) 1,000 MG tablet 1,000 mg PO DAILY cholecalciferol (vitamin D3) [Vitamin D3] 125 mcg (5,000 unit) tablet 5,000 unit PO DAILY Patient Comments: [facility] endo 06/11/20 RH magnesium oxide 200 mg magnesium tablet 200 mg PO BID clindamycin phosphate 1 % lotion 1 applic topical BID Rx Instructions: x10 days to abdomen fexofenadine 180 mg tablet 180 mg PO DAILY Rinvoq 30 mg tablet extended release 24 hr 30 mg PO DAILY losartan 100 mg tablet 100 mg PO DAILY Qty: 90 3RF atorvastatin 40 mg tablet 40 mg PO QHS Qty: 90 3RF aspirin 81 mg tablet,delayed release (DR/EC) See Rx Instructions .ROUTE .COMPLEX Qty: 90 3RF Dose Instruction: TAKE ONE TABLET BY MOUTH EVERY DAY Rx Instructions: TAKE ONE TABLET BY MOUTH EVERY DAY metformin 500 mg tablet 500 mg PO BID Qty: 180 3RF Rx Instructions: twice daily for abnormal blood sugars; R73.09 Qvar RediHaler 80 mcg/actuation HFA aerosol breath activated 1 inh inhalation BID Qty: 10.6 3RF topiramate 50 mg tablet See Rx Instructions .ROUTE .COMPLEX Qty: 180 3RF Dose Instruction: TAKE ONE TABLET BY MOUTH TWICE A DAY Rx Instructions: TAKE ONE TABLET BY MOUTH TWICE A DAY folic acid 1 mg tablet See Rx Instructions .ROUTE .COMPLEX Qty: 90 3RF Dose Instruction: TAKE ONE TABLET BY MOUTH EVERY DAY Rx Instructions: TAKE ONE TABLET BY MOUTH EVERY DAY albuterol sulfate 90 mcg/actuation HFA aerosol inhaler 1 puff IH Q6H PRN (Reason: shortness of breath or wheezing) Qty: 18 3RF omeprazole 40 mg capsule,delayed release(DR/EC) 40 mg PO DAILY Qty: 30 11RF amlodipine 10 mg tablet See Rx Instructions .ROUTE .COMPLEX Qty: 90 1RF Dose Instruction: TAKE ONE TABLET BY MOUTH EVERY DAY Rx Instructions: TAKE ONE TABLET BY MOUTH EVERY DAY Discharge Instructions Instructions: Chest Pain, Adult ED Additional Instructions: At this time your workup has returned reassuring there is no evidence of heart attack, significant heart failure, blood clot, significant disruption of the location of your pacemaker leads, or other abnormality. Your laboratory workup is reassuring. As we discussed together I do feel that it would be beneficial for continued nonemergent outpatient follow-up. Please follow-up with your [facility] cardiopulmonary supervisor as soon as possible for reassessment and potential further nonemergent stress testing. Additionally it would be beneficial to follow-up closely with your primary care provider for close reassessment, as well as potential outpatient pulmonary function testing for your shortness of breath. Please apply the Lidoderm patch to your left chest over your pacemaker as prescribed to help with the pain or discomfort. If you notice any worsening of your symptoms, or any new symptoms such as vomiting, diarrhea, fever, chills, shortness of breath, chest pain, numbness, weakness, or fainting , please return immediately to the emergency department for reevaluation. Please follow up with your primary care provider as soon as possible for reassessment and reevaluation. As always, it was a pleasure participating in your medical care today. Referrals: Marcio Devlin DO [Primary Care Provider, Medicine] Discharge Data Discharge Date/Time-TO BE ENTERED AT DEPARTURE: 06/22/25 13:36 HPI General Date/Time Provider Initiated Documentation: 06/22/25 10:03 . HPI Narrative: This is a pleasant 65-year-old female with a past medical history of MÉNDEZ, ankylosing spondylitis, hypertension, high cholesterol, GERD, type 2 diabetes, asthma, chronic Humira use, previous complete heart block with subsequent pacemaker, who presents today for evaluation of left-sided chest pain. Patient states that for the last year or so she has had occasional sharp pain around her pacemaker site. Usually brief and last about 30 seconds, it would usually occur just about once a month. However for the last month or so it has been increasing in frequency, and for the last week it is notably increased, happening multiple times throughout the day. It is not worse with movement or activity. There does not appear to be any particular aggravating or relieving factors. It seems to come on quickly and then subside on its own. Over the past week she has also had new symptoms of shortness of breath, lightheadedness. These are new symptoms. She denies any recent long trips surgeries or procedures. She has also noticed slight increase in swelling in her lower extremities over the last week. She has been taking her diuretic furosemide as prescribed. Patient denies any history of cardiac stenting, blood clot or DVT, or other abnormalities. No other complaints at this time. No other modifying factors. The patient's shortness of breath is present at all times with activity. However the chest pain is not activity associated. Related Data Home Medications ?Medication ?Instructions ?Recorded ?Confirmed ascorbic acid (vitamin C) 1,000 mg 1,000 mg PO DAILY 0 12/24/12 04/21/25 tablet calcium 500 mg (as 2 ea PO DAILY 12/24/1204/21 carbonate)-vitamin D3 10 mcg (400 unit) tablet (Calcium 500 With D) multivitamin (Daily Vitamin tablet) 1 ea PO DAILY 12/1404/21/25 cholecalciferol (vitamin D3) 125 5,000 unit PO DAILY 0 06/13/20 04/21/25 mcg (5,000 unit) tablet (Vitamin D3) omega-3 fatty acids-fish oil 340 1 cap PO BID 12/25/21 04/21/25 mg-1,000 mg capsule (Fish Oil) meclizine 25 mg tablet 25 mg PO BID PRN dizziness # 30 tabs 01/24/22 04/21/25 clindamycin phosphate 1 % lotion 1 applic topical BID 10/23/23 04/21/25 fexofenadine 180 mg tablet 180 mg PO DAILY 10/23/23 magnesium oxide 200 mg PO BID 10/23/2304/21 upadacitinib 30 mg tablet,extended 30 mg PO DAILY IBD 06/17/24 04/21/25 release 24 hr (Rinvoq) sumatriptan 20 mg/actuation nasal 20 mg intranasal ONC E #6 ea 10/21/24 04/21/25 spray losartan 100 mg tablet 100 mg PO DAILY #90 tabs 07/0904/21/25 aspirin 81 mg tablet,delayed See Rx Instructions .Rout tasia 11/08/24 04/21/25 release .COMPLEX #90 tabs atorvastatin 40 mg tablet 40 mg PO QHS #90 tabs 04/21/25 metformin 500 mg tablet 500 mg PO BID #180 tab-caps 11/29/24 04/21/25 beclomethasone dipropionate 80 1 inh inhalation BID #1 0.6 grams 01/28/25 04/21/25 mcg/actuation HFA breath activated aerosol (Qvar RediHaler) ascorbic acid (vitamin C) 1,000 mg 1 g PO DAILY 04/21/25 capsule folic acid 1 mg tablet See Rx Instructions .Route 0 02/08/25 04/21/25 .COMPLEX #90 tabs topiramate 50 mg tablet See Rx Instructions .Route 0 02/08/25 04/21/25 .COMPLEX #180 tabs albuterol sulfate 90 mcg/actuation 1 puff inhalation Q 6H PRN 02/15/25 04/21/25 aerosol inhaler shortness of breath or wheez ing #18 grams omeprazole 40 mg capsule,delayed 40 mg PO DAILY #30 ca ps 05/12/25 release amlodipine 10 mg tablet See Rx Instructions .Route 1 .COMPLEX #90 tabs lidocaine 5 % topical patch 1 patch topical Q24H #15 e a 06/22/25 (Lidoderm) Previous Rx's ?Medication ?Instructions ?Recorded meclizine 25 mg tablet 25 mg PO BID PRN dizziness # 30 tabs 01/24/22 sumatriptan 20 mg/actuation nasal 20 mg intranasal ONC E #6 ea 10/21/24 spray losartan 100 mg tablet 100 mg PO DAILY #90 tabs 07/09 aspirin 81 mg tablet,delayed See Rx Instructions .Rout tasia 11/08/24 release .COMPLEX #90 tabs atorvastatin 40 mg tablet 40 mg PO QHS #90 tabs metformin 500 mg tablet 500 mg PO BID #180 tab-caps 11/29/24 beclomethasone dipropionate 80 1 inh inhalation BID #1 0.6 grams 01/28/25 mcg/actuation HFA breath activated aerosol (Qvar RediHaler) folic acid 1 mg tablet See Rx Instructions .Route 0 02/08/25 .COMPLEX #90 tabs topiramate 50 mg tablet See Rx Instructions .Route 0 02/08/25 .COMPLEX #180 tabs albuterol sulfate 90 mcg/actuation 1 puff inhalation Q 6H PRN 02/15/25 aerosol inhaler shortness of breath or wheez ing #18 grams omeprazole 40 mg capsule,delayed 40 mg PO DAILY #30 ca ps 05/12/25 release amlodipine 10 mg tablet See Rx Instructions .Route 1 .COMPLEX #90 tabs lidocaine 5 % topical patch 1 patch topical Q24H #15 e a 06/22/25 (Lidoderm) Allergies Allergy/AdvReac Type Severity Reaction Status Date / Time celecoxib (From Celebrex) Allergy Intermediate rash Verified 10/21/24 13:44 etodolac Allergy Intermediate itching Verified 10/21/24 13:44 iodine AdvReac Severe swollen Verified 10/21/24 13:44 tongue amoxicillin trihydrate (From AdvReac Intermediate vomits Verified 10/21/24 13:44 Augmentin) doxycycline AdvReac Intermediate VOMITS Verified 10/21/24 13:44 ibuprofen AdvReac Intermediate CHEST PAIN Verified 10/21/24 13:44 potassium clavulanate (From AdvReac Intermediate vomits Verified 10/21/24 13:44 Augmentin) cephalexin AdvReac Mild VOMITS Verified 10/21/24 13:44 General Stated Complaint: Chest Pain NIKLOAS: 2 Exam Narrative Exam Narrative: 1.Const: Well-nourished, Well-developed, appearing stated age 2.Eyes: PERRL, no conjunctival injection, and symmetrical lids. 3.ENT: Atraumatic external nose and ears. Moist MM. Neck: Symmetric, trachea midline, No thyromegaly. 4.CVS: +S1/S2, Peripheral pulses 2+ and equal in all extremities. Brisk capillary refill in all extremities. Pacemaker site is nonerythematous, with mild tenderness at the medial inferior border. No fluctuance or drainage. No atypical lie 5.RESP: Unlabored respiratory effort. Clear to auscultation bilaterally. No wheezes rales or rhonchi 6.GI: Soft, Nontender/Nondistended, No hepatosplenomegaly. No guarding or rebound. 7.MSK: Normocephalic/Atraumatic, Extremities w/o deformity or ttp No cyanosis or clubbing, Normal movement of all extremities 8.Skin: Warm, Dry. No rashes or lesions. 9.Neuro: presiding judge II-XII grossly intact. Sensation grossly intact, no focal neurologic deficits. 10.Psych: (AAO) x3. Appropriate mood and affect Course Vital Signs Vital signs: Vital Signs Temperature 36.2 C L 06/22/25 09:52 Pulse 82 06/22/25 09:52 Respiratory Rate 22 06/22/25 09:52 Blood Pressure 165/72 H 06/22/25 09:52 Pulse Oximetry 100 06/22/25 09:52 Temperature 36.2 C L 06/22/25 09:52 Temperature Source Oral 06/22/25 09:52 Pulse 82 06/22/25 09:52 Respiratory Rate 22 06/22/25 09:52 Blood Pressure 165/72 H 06/22/25 09:52 Blood Pressure Position Sitting 06/22/25 09:52 Pulse Oximetry 100 06/22/25 09:52 Oxygen Delivery Method Room Air 06/22/25 09:52 Oxygen Flow Rate 0 06/22/25 09:52 Pain Level 0 06/22/25 09:52 Comment Pain at 5-6 when there is pain around the pacemaker- real sharp pain- nothing that triggers the pain and lasts for 30-45 seconds 06/22/25 09:52 Medical Decision Making This is a pleasant 65-year-old female with a past medical history of MÉNDEZ, ankylosing spondylitis, hypertension, high cholesterol, GERD, type 2 diabetes, asthma, chronic Humira use, previous complete heart block with subsequent pacemaker, who presents today for evaluation of left-sided chest pain. Patient states that for the last year or so she has had occasional sharp pain around her pacemaker site. Usually brief and last about 30 seconds, it would usually occur just about once a month. However for the last month or so it has been increasing in frequency, and for the last week it is notably increased, happen ing multiple times throughout the day. It is not worse with movement or activity. There does not appear to be any particular aggravating or relieving factors. It seems to come on quickly and then subside on its own. Over the past week she has also had new symptoms of shortness of breath, lightheadedness. These are new symptoms. She denies any recent long trips surgeries or procedures. She has also noticed slight increase in swelling in her lower extremities over the last week. She has been taking her diuretic furosemide as prescribed. Patient denies any history of cardiac stenting, blood clot or DVT, or other abnormalities. No other complaints at this time. No other modifying factors. The patient's shortness of breath is present at all times with activity. However the chest pain is not activity associated. Exam demonstrates well-appearing female, no acute distress, vital signs stable, mild trace pitting edema lower extremities, but no focal calf tenderness. EKG shows atrial sensed and ventricular paced rhythm with no signs of third-degree heart block or other abnormality. EKG stable. We will evaluate for concerning etiologies including PE, pneumothorax, pericardial effusion, pneumonia, tumor, pacemaker lead displacement, or less likely ACS. Will monitor closely and reassess. 3 PM Laboratory workup has returned, no white count bandemia or left shift. Renal f unction stable. Serial troponins normal. proBNP normal. Patient remained stable. No hypoxemia, tachycardia, hypotension or other abnormalities. No wheezes to suggest asthma. No evidence of PE or other abnormality on CT imaging. No atypical placement or abnormality is noted with the pacemaker. Bedside limited echo shows no significant dysfunction from the cardiac area or evidence of pericardial effusion or tamponade. At this time patient shows no evidence of significant life-threatening etiology. EKG is stable. Because of the patient's symptomatology is unclear. But differential does include precordial catch syndrome, musculoskeletal etiology, or potential pain from the pacemaker itself. However there is no evidence of dissection, PE, pneumothorax, trauma, or other significant abnormality. Did recommend the patient follow closely with cardiology and call them today. Additionally recommend close outpatient follow-up with her primary care provider for nonemergent outpatient stress testing and potential pulmonary function testing. Recommended low threshold for return if symptoms persist or worsen. Discussed red flags for which to return. I have extensively reviewed the treatment plan and discharge instructions with the patient. I have addressed all patient concerns at this time. The patient was made aware of what symptoms to monitor for that would warrant a return to the emergency department. Discussed the plan with the patient, they demonstrate verbal understanding and agreement with our assessment and plan at this time. The documentation in this chart was dictated using [employer] dictation software. Please excuse any dictation errors. 2 PM FINDINGS: CHEST: PULMONARY ARTERIES: There are no intraluminal filling defects to suggest acute pulmonary emboli. LUNGS: There are no infiltrates nor evidence of pulmonary infarction.. There are no pleural effusions. MEDIASTINUM: There is no hilar nor mediastinal adenopathy. CARDIAC: Left side subcutaneous cardiac pacemaker noted. Lead tips in right atrium and right ventricle. Heart size is upper normal. There is no pericardial effusion.Caliber of the thoracic aorta is within normal limits. No evidence of aortic dissection. Ventricular ratio is 1:1 PARTIALLY VISUALIZED UPPERMOST ABDOMEN: No obvious findings OSSEOUS: No significant osseous lesions.No fractures.. IMPRESSION: 1. No evidence of acute pulmonary emboli. No evidence of pulmonary infarction.No pleural effusions. No infiltrates 2. No evidence of aortic dissection nor pericardial effusion. Cardiac pacemaker wires noted. No evidence of pulmonary edema. 3. Left-sided cardiac pacemaker is associated with significant artifact making assessment of the immediate surrounding subcutaneous fat difficult.. PFSH All Active Problems (Updated 06/22/25 @ 13:09 by Lawrence Albert, ) Shortness of breath (Acute) Chest discomfort (Acute) Osteoporosis (Chronic 01/24/25) Dx from DEXA scan 01/14/25 - managed by [facility] Rheumatology Elevated PTHrP level (Acute) Intraductal papillary mucinous neoplasm (Acute) High risk medication use (Acute) Ulcerative colitis, unspecified, without complications (Acute) Ulcerative (chronic) pancolitis without complications (Acute) Metabolic dysfunction-associated steatohepatitis (MASH) (Acute) Ulcerative (chronic) pancolitis with other complication (Acute) Low vitamin D level (Acute) Pain in right foot (Acute) Stress fracture, right foot, initial encounter for fracture (Acute) Foot trauma (Acute) Third degree heart block (Acute) 10/20/2023 - [facility] ED - Dr Lawrence Albert Primary osteoarthritis of both hips (Acute) Arthropathy in ulcerative colitis with complication (Acute) Arthralgia of hands, bilateral (Acute) Chronic bilateral thoracic back pain (Acute) Inflammatory arthropathy (Acute) 12/13/21 [facility] Rheumatology note Morning joint stiffness (Acute) 12/13/21 [facility] Rheumatology note Chronic midline low back pain without sciatica (Acute) 12/13/21 [facility] Rheumatology note Pain in left hip (Acute) 12/03/21 [facility] Rheumatology note Neck pain (Acute) 12/13/21 [facility] Rheumatology note Trochanteric bursitis, left hip (Acute ~09/2021) Dr Mercado,[facility] Ortho Diabetes mellitus (Chronic) Papular eczema (Acute) Folliculitis (Acute) Seborrheic keratoses (Acute) Presence of left artificial hip joint (Chronic) Primary osteoarthritis of right hip (Chronic) Bilateral - 16.0 Urethral caruncle (Acute 08/15/17) Ulcerative enterocolitis (Acute 09/15/93) onset L sided, pancolitis last colon 2010 [facility]; Humira began 04/2009, stopped due to abnl LFT, then restarted 07/2014 RADHA (stress urinary incontinence, female) (Acute 08/15/17) Peripheral venous insufficiency (Acute 08/17/10) Paresthesia (Acute 05/25/13) R lat knee for ~1 yr, ? 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 INTOLERANT Hypomagnesemia (Acute 11/23/09) Hyperlipidemia (Acute 04/15/04) simvastatin begun 2009 by GI [facility] Gastroesophageal reflux disease without esophagitis (Acute 10/26/03) Essential hypertension (Acute 11/13/01) goal <140/80 Disorder of bone and articular cartilage (Acute 07/15/96) OSTEOPENIA Chronic rhinitis (Acute 09/15/00) BMI 34.0-34.9,adult (Acute 08/07/15) Asthma (Acute 06/15/05) [employer] Ankylosing spondylitis (Acute 09/15/90) M45.2 - of cervical region Adalimumab (Humira) long-term use (Acute 09/15/09) HUMIRA adalimumab for colitis and ankylosing spondylitis, Dr Eden Reynoso; Dr Marc Chan (GI) Abnormal blood sugar (Acute 08/07/15) early DM A1c 6.5 08/07/15 Medical History (Updated 06/22/25 @ 13:09 by Lawrence Albert DO) UTI (urinary tract infection) Kidney stones Dizziness (06/10/08) Closed displaced fracture of proximal phalanx of right little finger with routine healing (06/04/17) Surgical History (Updated 12/21/24 @ 08:17 by Linda Talavera RN) History of left hip replacement (~2005) S/P cardiac pacemaker procedure Placed 10/21/2023 by [facility].Likez L 311 serial [id number] L sided dual- chamber permanent pacemaker for complete heart block H/O colonoscopy 12/19/20 colonoscopy per [facility] note from 12/19/20 Vaginal hysterectomy (03/10/18) Colonoscopy w/ Bx (03/04/17) [facility] 09/24/22 09/18/23 Family History Mother Heart disease Hypertension Hepatitis C Father Alcohol abuse Lung cancer Heart disease Sister Heart disease Paternal Aunt Diabetes Social History Smoking/Tobacco Use Status: Never Smoking risk assessment performed?: Yes Alcohol Intake: current Alcohol Intake frequency: holidays/special occasions only Alcohol type: wine Drug use: Never Substance use type: does not use Adopted: No Caregiver/Support person: No Household members: spouse and family Housing: house Number of Children: 1 number of grandchildren: 2 Communication Needs: Corrective Lenses Education Level: high school Do you need help understanding health information?: Never current occupation: works [employer] Pets and animals: No Sexually active: Yes Do you think of yourself as: straight/heterosexual Current gender identity: female What is your relationship status?: How often do you talk on the phone with friends or family?: three or more times per week How often do you get together with friends or relatives?: three or more times per week How often do you attend cheondoism or taoist services?: decline to answer Do you belong to any clubs or organized social groups?: no Panel score (0-1 are the most socially isolated patients): 2 What type of physical activity do you participate in: walking and other Details: kayak Duration: 15-30 minutes/day Frequency: 3-4 times per week Bia/Sabianist: Baptist Special bia needs: No Seatbelt use: always Drive intox or ride w/intox 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
[2025-06-22 10:35] LABS: INR 1.0 (0.9-1.1); PTT Activated 22.1 sec (20.6-30.2); Prothrombin Time 10.1 sec (9.1-11.1)
[2025-06-22 10:44] LABS: ALT 47 U/L (14-59); AST 38 U/L (15-37); Albumin 4.2 g/dL (3.4-5.0); Alkaline Phosphatase 149 U/L (46-116); Anion Gap 9.7 mmol/L (3-11); BUN 27 mg/dL (7-18); Bilirubin, Total 0.5 mg/dL (0.2-1.0); CO2 24.3 mmol/L (21.0-32.0); Calcium 9.7 mg/dL (8.5-10.1); Chloride 107 mmol/L (98-107); Estimated GFR 50.55 (mL/min/1.73m2); Glucose 114 mg/dL (74-106); NT-proBNP 232 pg/mL (<300); Potassium 3.9 mmol/L (3.5-5.1); Sodium 141 mmol/L (136-145); Total Protein 8.0 g/dL (6.4-8.2); Troponin I 13 ng/L (<or=51)
[2025-06-22] MEDS: Normal Saline - Diluent 50 ML VIAL IJ (11:21)
[2025-06-22] MEDS: Normal Saline Flush 10 ML SYR IVP (11:21)
[2025-06-22] MEDS: Omnipaque 350 MG/ML 100 ML BTL IJ (11:22)
--- NOTE | 2025-06-22 11:24 | DI.CT_ITS ---
Exam(s) CT CHEST PE CTA EXAM: CT CHEST PE CTA CLINICAL HISTORY: left chest pain at pacemaker site. TECHNIQUE: Imaging Protocol: CT angiography of the chest was performed using pulmonary embolus protocol. Multi planar reconstructions were performed. CONTRAST MATERIAL: Intravenous: Omnipaque 350 Contrast volume: 100 cc COMPARISON: CT CT CHEST PE CTA from 12/20/2021 CR XR PORTABLE CHEST AP from 10/04/2024 FINDINGS: CHEST: PULMONARY ARTERIES: There are no intraluminal filling defects to suggest acute pulmonary emboli. LUNGS: There are no infiltrates nor evidence of pulmonary infarction.. There are no pleural effusions. MEDIASTINUM: There is no hilar nor mediastinal adenopathy. CARDIAC: Left side subcutaneous cardiac pacemaker noted. Lead tips in right atrium and right ventricle. Heart size is upper normal. There is no pericardial effusion.Caliber of the thoracic aorta is within normal limits. No evidence of aortic dissection. Ventricular ratio is 1:1 PARTIALLY VISUALIZED UPPERMOST ABDOMEN: No obvious findings OSSEOUS: No significant osseous lesions.No fractures.. IMPRESSION: 1. No evidence of acute pulmonary emboli. No evidence of pulmonary infarction.No pleural effusions. No infiltrates 2. No evidence of aortic dissection nor pericardial effusion. Cardiac pacemaker wires noted. No evidence of pulmonary edema. 3. Left-sided cardiac pacemaker is associated with significant artifact making assessment of the immediate surrounding subcutaneous fat difficult.. Report called by myself to ER physician 06/22/2025 at 11:40 a.m. RADIATION DOSE DELIVERED: 97.13mGy.cm Total DLP DATA REPOSITORY: All CT scans at this facility are submitted to the National Radiology Data Registry (NRDR) Dose Index Registry (DIR) with the [employer] ([employer]). RADIATION OPTIMIZATION: All CT scans at this facility use at least one of these dose optimization techniques: automated exposure control; mA and/or kV adjustment per patient size (includes targeted exams where dose is matched to clinical indication); or iterative reconstruction.
[2025-06-22 11:54] LABS: Troponin I 14 ng/L (<or=51)
[2025-06-22] MEDS: Lidocaine 5% Patch 1 PATCH TP (13:25)
[2025-06-22 13:31] VITALS: RESP 20
== END 2025-06-22 13:36 | disposition home or self-care (01) ==
PROVIDERS: Emergency Provider Student in an Organized Health Care Education/Training Program; PCP Family Medicine
DX: R06.02 Shortness of breath (principal); R07.89 Other chest pain; Z95.0 Presence of cardiac pacemaker
CPT/HCPCS: 99284; 99285; 36415; 71275; 80053; 93005; 93308; 83880; 84484; 85025; 85610; 85730; 93010; J3490